=== PATIENT | female | born 1960 | race Caucasian/White ===

== ENCOUNTER 2022-11-09 11:10 | Emergency (ER) | payer OTHER, SELFPAY ==
[2022-11-09 11:23] VITALS: BP 154/65; PULSE 77; RESP 16; TEMP 37; O2SAT 96; BMI 42.0
--- NOTE | 2022-11-09 11:46 | PC.NURSE ---
pt states she has copd and smokes. Not concerned about breathing
--- NOTE | 2022-11-09 17:49 | ED.GENADUL1 ---
HPI - General Adult General Chief complaint: Skin/Abscess/Foreign Body Stated complaint: CYST Time Seen by Provider: 11/09/22 12:47 Source: patient Mode of arrival: walk-in Limitations: no limitations History of Present Illness HPI narrative: patient left without being seen secondary to her volume, wait time. I never saw this patient. Related Data Allergies Allergy/AdvReac Type Severity Reaction Status Date / Time ciprofloxacin [From Cipro] AdvReac Intermediate Vomiting Verified 11/09/22 11:26 metronidazole [From Flagyl] AdvReac Intermediate Vomiting Verified 11/09/22 11:26 Penicillins AdvReac Intermediate Vomiting Verified 11/09/22 11:26 sulfamethoxazole AdvReac Intermediate Vomiting Verified 11/09/22 11:26 [From Bactrim] trimethoprim [From Bactrim] AdvReac Intermediate Vomiting Verified 11/09/22 11:26 PFSH [facility] Medical History (Updated 11/09/22 @ 11:48 by Balbina Luis) Social History Smoking status: Current every day smoker Exam Constitutional Vital Signs - 24 hr 11/09/22 11:23 Temperature 98.6 F Pulse Rate [Monitor] 77 Respiratory Rate 16 Blood Pressure [Left Arm] 154/65 H Pulse Oximetry 96 Oxygen Delivery Method Room Air Course Vital Signs Vital signs: Vital Signs Temperature 98.6 F 11/09/22 11:23 Pulse Rate 77 11/09/22 11:23 Respiratory Rate 16 11/09/22 11:23 Blood Pressure 154/65 H 11/09/22 11:23 Pulse Oximetry 96 11/09/22 11:23 Oxygen Delivery Method Room Air 11/09/22 11:23 Temperature 98.6 F 11/09/22 11:23 Pulse Rate 77 11/09/22 11:23 Respiratory Rate 16 11/09/22 11:23 Blood Pressure 154/65 H 11/09/22 11:23 Pulse Oximetry 96 11/09/22 11:23 Oxygen Delivery Method Room Air 11/09/22 11:23 Discharge Plan Discharge Patient Disposition: Left Without Being Seen Discharge Date/Time: 11/09/22 13:16
== END 2022-11-09 13:16 | disposition left against medical advice (07) ==
LOC: ER 11:29
PROVIDERS: Emergency Provider Emergency Medicine; PCP Nurse Practitioner
DX: Z53.21 Procedure and treatment not carried out due to patient leaving prior to being seen by health care provider (principal)

== ENCOUNTER 2023-02-25 07:53 | Outpatient (OUT) | payer OTHER, SELFPAY ==
[2023-02-25 08:08] LABS: Basophils Absolute Auto 0.1 10^3/uL (0.0-0.1); Basophils Percent Auto 0.6 % (0.2-2.0); Eosinophils Absolute Auto 0.2 10^3/uL (0.0-0.7); Eosinophils Percent Auto 1.9 % (0.9-7.0); Hematocrit 53.5 % (36.0-48.0); Hemoglobin 17.4 g/dL (12.0-16.0); Immature Granulocytes Abs Auto 0.04 10^3/uL (0.00-0.03); Immature Granulocytes Pct Auto 0.4 % (0.0-0.5); Lymphocytes Absolute Auto 2.7 10^3/uL (1.2-3.8); Lymphocytes Percent Auto 27.7 % (20.5-60.0); Mean Corpuscular HGB Conc 32.5 g/dL (29.9-35.2); Mean Corpuscular Hemoglobin 31.1 pg (26.7-34.0); Mean Corpuscular Volume 95.5 fL (81.0-99.0); Mean Platelet Volume 9.8 fL (9.5-13.5); Monocytes Absolute Auto 0.6 10^3/uL (0.3-0.8); Monocytes Percent Auto 6.4 % (1.7-12.0); Neutrophils Absolute Auto 6.1 10^3/uL (1.4-6.5); Platelet Count 325 10^3/uL (150-450); White Blood Count 9.7 10^3/uL (4.0-11.0)
[2023-02-25 08:48] LABS: Estimated Average Glucose 200 mg/dL; Glycohemoglobin A1C 8.6 % (4.5-6.2)
[2023-02-25 08:49] LABS: Alanine Aminotransferase 18 U/L (14-59); Albumin Globulin Ratio 0.9; Albumin Level 3.5 g/dL (3.4-5.0); Alkaline Phosphatase 112 U/L (46-116); Anion Gap 12.6; Aspartate Amino Transferase 13 U/L (15-37); Bilirubin Total 0.4 mg/dL (0.2-1.0); Calcium 9.2 mg/dL (8.5-10.1); Carbon Dioxide 28.7 mmol/L (21.0-32.0); Chloride 101 mmol/L (98-107); Chol HDL Ratio 2.6; Cholesterol 105 mg/dL (<=200); Estimated GFR (African America >60 (>=60); Estimated GFR (Non-African Ame >60 (>=60); Globulin 4.1 g/dL; Glucose 305 mg/dL (74-106); HDL Cholesterol 41 mg/dL (40-60); LDL Cholesterol Calculated 47.8 mg/dL; Potassium 4.3 mmol/L (3.5-5.1); Sodium 138 mmol/L (136-145); Total Protein 7.6 g/dL (6.4-8.2); Triglycerides 81 mg/dL (<=150); VLDL CHOLESTEROL 16.2 mg/dL
== END 2023-02-25 07:54 | disposition home or self-care (01) ==
LOC: LAB 07:55
PROVIDERS: PCP Nurse Practitioner; Visit Provider Nurse Practitioner Acute Care
DX: I10 Essential (primary) hypertension (principal); E78.2 Mixed hyperlipidemia; E11.9 Type 2 diabetes mellitus without complications; Z79.4 Long term (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
CPT/HCPCS: 36415; 80053; 80061; 83036; 85025

== ENCOUNTER 2023-04-05 08:08 | Emergency (ER) | payer OTHER, SELFPAY ==
[2023-04-05 08:12] VITALS: BP 156/72; PULSE 72; RESP 18; TEMP 36.4; O2SAT 98; BMI 42.0
[2023-04-05 08:20] VITALS: O2SAT 98
--- NOTE | 2023-04-05 08:26 | XR_ITS ---
The [place] [id number] Patient Name: RODDY HORN MRN: [id number] date: 1960 Sex: F Assigned Patient Location: ER Current Patient Location: ED.MAIN Accession/Order Number: [id number] Exam Date: 04/05/2023 09:15 Report Date: 04/05/2023 11:10 At the request of: CHLOE WRIGHT Procedure: XR shoulder RT min 2V EXAM: Right shoulder HISTORY: Pain for 2 weeks, no known injury, with numbness and a burning sensation that radiates to the fingers. TECHNIQUE: 3 views of the right shoulder were obtained. FINDINGS: There is no evidence of fracture or dislocation. There are no suspicious bone lesions. There are minimal if any degenerative changes. Soft tissues are normal. XR/XR shoulder RT min 2V IMPRESSION: Unremarkable exam. If clinical concern remains, consider further imaging with MRI. Electronically authenticated by: KIRK MOORE Date: 04/05/2023 11:10
--- NOTE | 2023-04-05 08:27 | ECG_ITS ---
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
--- NOTE | 2023-04-05 08:27 | ED.GENADUL1 ---
HPI - General Adult General Chief complaint: Extremity Injury, Upper Stated complaint: UPPER EXTREMITY PAIN TO RIGHT ARM Time Seen by Provider: 04/05/23 08:19 Source: patient Mode of arrival: walk-in History of Present Illness HPI narrative: Coming to the ER with a right shoulder pain that has been going on at least for 2 weeks and mentioned that the pain is starting from her shoulder going down to her elbow there was no weakness numbness or tingling down her fingers and the patient mentioned that she is left-handed No history of trauma or fall no history of neck pain The patient denies any chest pain shortness of breath or any other complaints She also have limitation in the right shoulder with abduction Related Data Home Medications Medication Instructions Recorded Confirmed aspirin 81 mg tablet,delayed 81 mg PO DAILY 04/05/23 04/05/23 release budesonide-formoterol HFA 160 2 puff inhalation BID 04/05/23 04/05/23 mcg-4.5 mcg/actuation aerosol inhaler (Symbicort) calcium carbonate 500 mg-vitamin 1 tab PO BID 04/05/23 04/05/23 D3 10 mcg (400 unit) tablet carvedilol 12.5 mg tablet 12.5 mg PO BID 04/05/23 04/05/23 empagliflozin 25 mg tablet 25 mg PO DAILY 04/05/23 04/05/23 (Jardiance) furosemide 20 mg tablet 20 mg PO DAILY 04/05/23 04/05/23 gabapentin 600 mg tablet 600 mg PO TID 04/05/23 04/05/23 insulin aspart U-100 100 unit/mL 1 sliding scale dose subcut 04/05/23 04/05/23 (3 mL) subcutaneous pen (Novolog TIDWMEAL FlexPen U-100 Insulin aspart) insulin glargine 100 unit/mL (3 60 unit subcut QPM 04/05/23 04/05/23 mL) subcutaneous pen (Lantus Solostar U-100 Insulin) loratadine 10 mg tablet 10 mg PO DAILY 04/05/23 04/05/23 losartan 100 mg tablet 100 mg PO DAILY 04/05/23 04/05/23 pantoprazole 40 mg tablet,delayed 40 mg PO DAILY 04/05/23 04/05/23 release paroxetine HCl 10 mg tablet 10 mg PO DAILY 04/05/23 04/05/23 potassium chloride 10 mEq 10 meq PO DAILY 04/05/23 04/05/23 capsule,extended release rivaroxaban 20 mg tablet (Xarelto) 20 mg PO DAILY 04/05/23 04/05/23 rosuvastatin 5 mg tablet 5 mg PO DAILY 04/05/23 04/05/23 spironolactone 25 mg tablet 25 mg PO BID 04/05/23 04/05/23 tiotropium bromide 2.5 2 puff inhalation DAILY 04/05/23 04/05/23 mcg/actuation mist for inhalation (Spiriva Respimat) Previous Rx's Medication Instructions Recorded prednisone 20 mg tablet 40 mg PO DAILY 2 days #4 tabs 04/05/23 Allergies Allergy/AdvReac Type Severity Reaction Status Date / Time ciprofloxacin [From Cipro] AdvReac Intermediate Vomiting Verified 11/09/22 11:26 metronidazole [From Flagyl] AdvReac Intermediate Vomiting Verified 11/09/22 11:26 Penicillins AdvReac Intermediate Vomiting Verified 11/09/22 11:26 sulfamethoxazole AdvReac Intermediate Vomiting Verified 11/09/22 11:26 [From Bactrim] trimethoprim [From Bactrim] AdvReac Intermediate Vomiting Verified 11/09/22 11:26 Review of Systems ROS Status of ROS 10 or more systems reviewed and unremarkable except as noted in history and below [facility] Medical History (Updated 04/05/23 @ 11:08 by Anushka Carbajal MD) Chronic obstructive pulmonary disease ?J44.9 - Chronic obstructive pulmonary disease, unspecified (ICD-10) Social History Smoking status: Current every day smoker Exam Narrative Exam Narrative: Nurses notes and vital signs reviewed and patient is not hypoxic. General: Well-appearing and in no apparent distress. Skin: Warm, dry, no pallor noted. No rash. Head: Normocephalic, atraumatic. Neck: Supple, non-tender. Eye: Pupils are equal, round and EOMI. No scleral icterus. Ears, Nose, Mouth, and Throat: TM are clear, no nasal mucosal hypertrophy. Oral mucosa is moist, no posterior oropharynx erythema, uvula is mid-line Cardiovascular: Regular Rate and Rhythm without murmur, gallop or rub. Respiratory: No accessory muscle use or respiratory distress. Lungs are clear to auscultation, no wheezing, rales or rhonchi Chest Wall: no tenderness Back: No midline thoracic or lumbar vertebral tenderness. No CVA tenderness Musculoskeletal: normal ROM, no calf or popliteal tenderness, no lower extremity edema/swelling. Right shoulder limitation of abduction to 90 degrees due to pain, no redness or hotness detected GI: Abdomen is soft, non-distended. Normal bowel sounds. No masses appreciated. No tenderness to palpation. No rebound, guarding, or rigidity noted. Neurological: A&O x4. No cranial nerve dysfunction observed. No truncal ataxia. Moves all extremities. Sensation intact. Psychiatric: Cooperative and interactive. Normal mood and affect. Constitutional Vital Signs, click to edit/add: Last Vital Signs Temp 97.6 F 04/05/23 08:12 Pulse 60 04/05/23 09:43 Resp 16 04/05/23 09:43 BP 148/65 H 04/05/23 09:43 Pulse Ox 97 04/05/23 09:43 O2 Del Method Room Air 04/05/23 08:20 Course Vital Signs Vital signs: Vital Signs Temperature 97.6 F 04/05/23 08:12 Pulse Rate 72 04/05/23 08:12 Respiratory Rate 18 04/05/23 08:12 Blood Pressure 156/72 H 04/05/23 08:12 Pulse Oximetry 98 04/05/23 08:12 Oxygen Delivery Method Room Air 04/05/23 08:12 Temperature 97.6 F 04/05/23 08:12 Pulse Rate 60 04/05/23 09:43 Respiratory Rate 16 04/05/23 09:43 Blood Pressure 148/65 H 04/05/23 09:43 Pulse Oximetry 97 04/05/23 09:43 Oxygen Delivery Method Room Air 04/05/23 08:20 Medical Decision Making MDM Narrative Medical decision making narrative: Examination shows some limitation of movement of the right shoulder but there is no vascular injury and no other acute pathology detected The patient x-ray shows no acute significant pathology on the prelim reading mostly the patient presenting with possible arthritis discharged from the ER with 3 days of prednisone as well as referral to orthopedic as outpatient The patient is to follow up with primary care physician in next 2-3 days or to return to the emergency department should any of the signs or symptoms worsen or new symptoms develop. The patient agrees with the following Diagnosis and Treatment plan and the patient will be discharged home. Discharge Plan Discharge Chief Complaint: Extremity Injury, Upper Clinical Impression: Acute shoulder pain Patient Disposition: Home, Self-Care Time of Disposition Decision: 11:08 Condition: Good Mode of Transportation: Private Vehicle Prescriptions / Home Meds: New prednisone 20 mg tablet 40 mg PO DAILY 2 Days Qty: 4 0RF No Action aspirin 81 mg tablet,delayed release (DR/EC) 81 mg PO DAILY budesonide-formoterol [Symbicort] 160-4.5 mcg/actuation HFA aerosol inhaler 2 puff INHALATION BID calcium carbonate-vitamin D3 500 mg-10 mcg (400 unit) tablet 1 tab PO BID carvedilol 12.5 mg tablet 12.5 mg PO BID Jardiance 25 mg tablet 25 mg PO DAILY furosemide 20 mg tablet 20 mg PO DAILY gabapentin 600 mg tablet 600 mg PO TID insulin aspart U-100 [Novolog FlexPen U-100 Insulin] 100 unit/mL (3 mL) insulin pen 1 sliding scale dose SUBCUT TIDWMEAL insulin glargine [Lantus Solostar U-100 Insulin] 100 unit/mL (3 mL) insulin pen 60 unit SUBCUT QPM loratadine 10 mg tablet 10 mg PO DAILY losartan 100 mg tablet 100 mg PO DAILY pantoprazole 40 mg tablet,delayed release (DR/EC) 40 mg PO DAILY paroxetine HCl 10 mg tablet 10 mg PO DAILY potassium chloride 10 mEq capsule, extended release 10 meq PO DAILY Xarelto 20 mg tablet 20 mg PO DAILY rosuvastatin 5 mg tablet 5 mg PO DAILY spironolactone 25 mg tablet 25 mg PO BID Spiriva Respimat 2.5 mcg/actuation mist 2 puff INHALATION DAILY Instructions: Arthralgia (ED) Stand Alone Forms: Portal Instructions Referrals: Maira Rush NP [Primary Care Provider] - 1 week Patrick Stewart MD [Physician] - 1 week Discharge Date/Time: 04/05/23 11:16
[2023-04-05] MEDS: KETOROLAC TROMETHAMINE 30 MG/ML VIAL IM (08:52)
[2023-04-05 09:43] VITALS: BP 148/65; PULSE 60; RESP 16; O2SAT 97
== END 2023-04-05 11:16 | disposition home or self-care (01) ==
PROVIDERS: Emergency Provider Emergency Medicine; PCP Nurse Practitioner
DX: M25.511 Pain in right shoulder (principal); J44.9 Chronic obstructive pulmonary disease, unspecified; Z79.82 Long term (current) use of aspirin; Z79.4 Long term (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; Z79.899 Other long term (current) drug therapy; F17.210 Nicotine dependence, cigarettes, uncomplicated
CPT/HCPCS: 73030; 93005; 99284

== ENCOUNTER 2023-06-24 09:14 | Observation (INO) | payer OTHER, SELFPAY ==
[2023-06-24] VITALS (22 sets, daily range): BP systolic 116–167; BP diastolic 65–80; PULSE 66–90; RESP 12–28; TEMP 36.4–36.5; O2SAT 89–96; BMI 42.1; BMI 37.8
--- NOTE | 2023-06-24 09:27 | ED_ITS ---
HPI - SOB/Dyspnea General Chief Complaint: Shortness of Breath/Dyspnea Stated Complaint: SOB Time Seen by Provider: 06/24/23 09:17 Source: patient Mode of arrival: ambulance History of Present Illness HPI Narrative: 62-year-old female presents for shortness of breath. She has a history of chronic obstructive pulmonary disease and has a nebulizer at home but didn't have any medication for it. She was given aerosol treatment en route and she states she felt a little bit better. She hasn't had a fever or productive cough and doesn't complain to me of chest pain. Symptoms started within the last day. Related Data Home Medications Medication Instructions Recorded Confirmed aspirin 81 mg tablet,delayed 81 mg PO DAILY 04/05/23 06/24/23 release budesonide-formoterol HFA 160 2 puff inhalation BID 04/05/23 06/24/23 mcg-4.5 mcg/actuation aerosol inhaler (Symbicort) calcium carbonate 500 mg-vitamin 1 tab PO BID 04/05/23 06/24/23 D3 10 mcg (400 unit) tablet carvedilol 12.5 mg tablet 12.5 mg PO BID 04/05/23 06/24/23 empagliflozin 25 mg tablet 25 mg PO DAILY 04/05/23 06/24/23 (Jardiance) furosemide 20 mg tablet 20 mg PO DAILY 04/05/23 06/24/23 gabapentin 600 mg tablet 600 mg PO TID 04/05/23 06/24/23 insulin aspart U-100 100 unit/mL 1 sliding scale dose subcut 04/05/23 06/24/23 (3 mL) subcutaneous pen (Novolog TIDWMEAL FlexPen U-100 Insulin aspart) insulin glargine 100 unit/mL (3 60 unit subcut QPM 04/05/23 06/24/23 mL) subcutaneous pen (Lantus Solostar U-100 Insulin) loratadine 10 mg tablet 10 mg PO DAILY 04/05/23 06/24/23 losartan 100 mg tablet 100 mg PO DAILY 04/05/23 06/24/23 pantoprazole 40 mg tablet,delayed 40 mg PO DAILY 04/05/23 06/24/23 release paroxetine HCl 10 mg tablet 10 mg PO DAILY 04/05/23 06/24/23 potassium chloride 10 mEq 10 meq PO DAILY 04/05/23 06/24/23 capsule,extended release rivaroxaban 20 mg tablet (Xarelto) 20 mg PO DAILY 04/05/23 06/24/23 rosuvastatin 5 mg tablet 5 mg PO DAILY 04/05/23 06/24/23 spironolactone 25 mg tablet 25 mg PO BID 04/05/23 06/24/23 tiotropium bromide 2.5 2 puff inhalation DAILY 04/05/23 04/05/23 mcg/actuation mist for inhalation (Spiriva Respimat) Allergies Allergy/AdvReac Type Severity Reaction Status Date / Time ciprofloxacin [From Cipro] AdvReac Intermediate Vomiting Verified 06/24/23 09:23 metronidazole [From Flagyl] AdvReac Intermediate Vomiting Verified 06/24/23 09:23 Penicillins AdvReac Intermediate Vomiting Verified 06/24/23 09:23 sulfamethoxazole AdvReac Intermediate Vomiting Verified 11/09/22 11:26 [From Bactrim] trimethoprim [From Bactrim] AdvReac Intermediate Vomiting Verified 11/09/22 11:26 Review of Systems ROS Narrative A ten point review of systems is negative except as noted above. [facility] Medical History (Updated 06/24/23 @ 11:02 by Luis Antonio Garcia MD) Chronic obstructive pulmonary disease ?J44.9 - Chronic obstructive pulmonary disease, unspecified (ICD-10) Social History Smoking status: Current every day smoker Exam Narrative Exam Narrative: Nurses note and vital signs reviewed and patient is not hypoxic. General: The patient appears somewhat disheveled. Skin: Warm, dry, no pallor noted. There is no rash noted. Head: Normocephalic, atraumatic Eye: Normal conjunctiva, no drainage Ears, Nose, Mouth, and Throat: oral mucosa is moist. Nares patent. Cardiovascular: Regular Rate and Rhythm Respiratory: bilateral rhonchi throughout Back: non-tender GI: soft and nontender Musculoskeletal: The patient has no evidence of calf tenderness, no pitting e antelmo, symmetrical pulses noted bilaterally Neurological: A&O, normal speech Psychiatric: Cooperative Constitutional Vital Signs, click to edit/add: Last Vital Signs Temp 97.7 F 06/24/23 09:17 Pulse 74 06/24/23 10:20 Resp 25 H 06/24/23 10:20 BP 150/80 H 06/24/23 10:01 Pulse Ox 93 L 06/24/23 10:20 O2 Del Method Nasal Cannula 06/24/23 09:49 O2 Flow Rate 3 06/24/23 09:49 Course Vital Signs Vital signs: Vital Signs Temperature 97.7 F 06/24/23 09:17 Pulse Rate 79 06/24/23 09:17 Respiratory Rate 28 H 06/24/23 09:17 Blood Pressure 167/65 H 06/24/23 09:17 Pulse Oximetry 92 L 06/24/23 09:17 Oxygen Delivery Method Nasal Cannula 06/24/23 09:17 Oxygen Delivery Flow Rate 3 06/24/23 09:17 Temperature 97.7 F 06/24/23 09:17 Pulse Rate 74 06/24/23 10:20 Respiratory Rate 25 H 06/24/23 10:20 Blood Pressure 150/80 H 06/24/23 10:01 Pulse Oximetry 93 L 06/24/23 10:20 Oxygen Delivery Method Nasal Cannula 06/24/23 09:49 Oxygen Delivery Flow Rate 3 06/24/23 09:49 MDM - SOB/Dyspnea MDM Narrative Medical decision making narrative: the patient presents with chronic obstructive pulmonary disease exacerbation and she has a positive Covid test. No x-ray findings to suggest pneumonia or Covid. She was given aerosol treatments and IV Solu-Medrol and is being admitted. Treatment diagnosis and disposition were discussed with the patient. Differential Diagnosis Differential diagnosis: Likely acute exacerbation of chronic obstructive airways disease, congestive heart failure, community acquired pneumonia and other (Covid, influenza) Lab Data Attestation: I reviewed the patient's lab results. Labs: Lab Results 06/24/23 06/24/23 06/24/23 Range/Units 09:29 09:30 09:38 WBC 9.4 (4.0-11.0) 10^3/uL RBC 5.87 H (4.20-5.40) 10^6/uL Hgb 18.1 H (12.0-16.0) g/dL Hct 55.0 H (36.0-48.0) % MCV 93.7 (81.0-99.0) fL MCH 30.8 (26.7-34.0) pg MCHC 32.9 (29.9-35.2) g/dL RDW 12.8 (11.0-15.0) % Plt Count 269 (150-450) 10^3/uL MPV 10.3 (9.5-13.5) fL Neut % (Auto) 74.9 (43.0-75.0) % Lymph % (Auto) 17.7 L (20.5-60.0) % [place] % (Auto) 5.4 (1.7-12.0) % Eos % (Auto) 1.2 (0.9-7.0) % Baso % (Auto) 0.4 (0.2-2.0) % Neut # (Auto) 7.0 H (1.4-6.5) 10^3/uL Lymph # (Auto) 1.7 (1.2-3.8) 10^3/uL [place] # (Auto) 0.5 (0.3-0.8) 10^3/uL Eos # (Auto) 0.1 (0.0-0.7) 10^3/uL Baso # (Auto) 0.0 (0.0-0.1) 10^3/uL Abs Immat Gran (auto) 0.04 H (0.00-0.03) 10^3/uL Imm/Tot Granulo (auto) 0.4 (0.0-0.5) % Sodium 139 (136-145) mmol/L Potassium 3.8 (3.5-5.1) mmol/L Chloride 100 (98-107) mmol/L Carbon Dioxide 28.4 (21.0-32.0) mmol/L Anion Gap 14.4 BUN 7.0 (7.0-18.0) mg/dL Creatinine 0.91 (0.55-1.02) mg/dL Est GFR ( Amer) >60 (>=60) Est GFR (Non-Af Amer) >60 (>=60) BUN/Creatinine Ratio 7.7 Glucose 285 H (74-106) mg/dL Calcium 9.0 (8.5-10.1) mg/dL Influenza Type A Ag Negative Influenza Type B Ag Negative SARS-CoV-2 Ag (CV2AG) Positive A (NEGATIVE) POC Glucose 268 H (74-106) mg/dL Imaging Data Chest x-ray: Radiologist's impression: ITS Impressions Chest X-Ray 06/24/23 09:52 IMPRESSION: No acute heart or lung disease identified. Electronically authenticated by: CORINE COMBS Date: 06/24/2023 10:02 ECG Data Attestation: I personally reviewed and interpreted this ECG as follows: (EKG on my interpretation shows sinus rhythm without acute change) Critical Care Time Critical Care Time Critical Care Time: Yes Total Critical Care Time: 35 Attestation: Due to the high probability of sudden and clinically significant deterioration in the patient's condition he/she required the highest level of my preparedness to intervene urgently I provided critical care time including documentation time, medication orders and management, reevaluation, vital sign assessment, ordering and reviewing of lab tests, ordering and reviewing of x-ray studies, and admission orders. Aggregate critical care time is 35 minutes including only time during which I was engaged in work directly related to his/her care and did not include time spent treating other patients simultaneously. Discharge Plan Discharge Chief Complaint: Shortness of Breath/Dyspnea Clinical Impression: COVID, Acute exacerbation of chronic obstructive pulmonary disease Patient Disposition: Admitted as Observation Time of Disposition Decision: 11:02 Condition: Good Prescriptions / Home Meds: No Action aspirin 81 mg tablet,delayed release (DR/EC) 81 mg PO DAILY budesonide-formoterol [Symbicort] 160-4.5 mcg/actuation HFA aerosol inhaler 2 puff INHALATION BID calcium carbonate-vitamin D3 500 mg-10 mcg (400 unit) tablet 1 tab PO BID carvedilol 12.5 mg tablet 12.5 mg PO BID Jardiance 25 mg tablet 25 mg PO DAILY furosemide 20 mg tablet 20 mg PO DAILY Hold Instructions: x gabapentin 600 mg tablet 600 mg PO TID insulin aspart U-100 [Novolog FlexPen U-100 Insulin] 100 unit/mL (3 mL) insulin pen 1 sliding scale dose SUBCUT TIDWMEAL insulin glargine [Lantus Solostar U-100 Insulin] 100 unit/mL (3 mL) insulin pen 60 unit SUBCUT QPM loratadine 10 mg tablet 10 mg PO DAILY losartan 100 mg tablet 100 mg PO DAILY pantoprazole 40 mg tablet,delayed release (DR/EC) 40 mg PO DAILY paroxetine HCl 10 mg tablet 10 mg PO DAILY potassium chloride 10 mEq capsule, extended release 10 meq PO DAILY Xarelto 20 mg tablet 20 mg PO DAILY rosuvastatin 5 mg tablet 5 mg PO DAILY spironolactone 25 mg tablet 25 mg PO BID Spiriva Respimat 2.5 mcg/actuation mist 2 puff INHALATION DAILY Referrals: Maira Rush FIRE ENGINEER [Primary Care Provider] - 1 week
--- NOTE | 2023-06-24 09:27 | ECG_ITS ---
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
[2023-06-24 09:30] LABS: Glucometer 268 mg/dL (74-106)
[2023-06-24] MEDS: METHYLPREDNISOLONE SOD SUCC PF 125 MG/2 ML VIAL IVP (09:39)
[2023-06-24 09:47] LABS: Basophils Percent Auto 0.4 % (0.2-2.0); Eosinophils Absolute Auto 0.1 10^3/uL (0.0-0.7); Eosinophils Percent Auto 1.2 % (0.9-7.0); Hemoglobin 18.1 g/dL (12.0-16.0); Immature Granulocytes Abs Auto 0.04 10^3/uL (0.00-0.03); Immature Granulocytes Pct Auto 0.4 % (0.0-0.5); Lymphocytes Absolute Auto 1.7 10^3/uL (1.2-3.8); Lymphocytes Percent Auto 17.7 % (20.5-60.0); Mean Corpuscular HGB Conc 32.9 g/dL (29.9-35.2); Mean Corpuscular Hemoglobin 30.8 pg (26.7-34.0); Mean Corpuscular Volume 93.7 fL (81.0-99.0); Mean Platelet Volume 10.3 fL (9.5-13.5); Monocytes Absolute Auto 0.5 10^3/uL (0.3-0.8); Monocytes Percent Auto 5.4 % (1.7-12.0); Neutrophils Percent Auto 74.9 % (43.0-75.0); Platelet Count 269 10^3/uL (150-450); Red Blood Count 5.87 10^6/uL (4.20-5.40); Red Cell Distribution Width 12.8 % (11.0-15.0); White Blood Count 9.4 10^3/uL (4.0-11.0)
[2023-06-24] MEDS: ALBUTEROL SULFATE 2.5 MG/3 ML VIAL NEB IH (09:48)
--- NOTE | 2023-06-24 09:52 | XR_ITS ---
The [address] [address] Patient Name: RODDY HORN MRN: [id number] date: 1960 Sex: F Assigned Patient Location: ER Current Patient Location: ER Accession/Order Number: [id number] Exam Date: 06/24/2023 09:45 Report Date: 06/24/2023 10:02 At the request of: SACHA MONTANO Procedure: XR chest 1V EXAM: Chest x-ray HISTORY: . SOB . COMPARISON: None TECHNIQUE: Single view of the chest FINDINGS: Heart and vascularity are unremarkable. Lungs are free of focal infiltrates. EKG leads overlie the chest. XR/XR chest 1V IMPRESSION: No acute heart or lung disease identified. Electronically authenticated by: CORINE COMBS Date: 06/24/2023 10:02
[2023-06-24 09:56] LABS: Anion Gap 14.4; BUN Creatinine Ratio 7.7; Carbon Dioxide 28.4 mmol/L (21.0-32.0); Chloride 100 mmol/L (98-107); Estimated GFR (African America >60 (>=60); Estimated GFR (Non-African Ame >60 (>=60); Glucose 285 mg/dL (74-106); Potassium 3.8 mmol/L (3.5-5.1); Sodium 139 mmol/L (136-145)
[2023-06-24 10:00] LABS: Influenza Virus A Antigen Negative; Influenza Virus B Antigen Negative; Internal Control Within Normal Limits
[2023-06-24 10:01] LABS: SARS-CoV-2 Ag POSITIVE (NEGATIVE)
--- OUTSIDE RECORDS SUMMARY | 2023-06-24 12:08 | XMS_ITS | CCD ---
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 Report Left Ventricle LVEDD (3.7 - 5.6 cm): 3.98 cm LVESD (2.2 - 4.0 cm): 2.63 cm LVIVS thickness (0.6 - 1.2 cm): 1.22 cm LVPW thickness (0.5 - 1.0 cm): 1.33 cm e': 0.08 m/s E - e': 10.89 LVOT Max Gradient: 4.80 mm[Hg] Peak Velocity (LVOT): 1.10 m/s LVOT Diameter 1.97 cm Left Ventricular Ejection Fraction: 65 % Left Atrium LA Volume Index (2D A2C): 59.06 ml, 59.06 ml Left Atrium Systolic Dimension: 2.99 cm Mitral Valve MV E to A Ratio: 1.06 Mitral Valve A-Wave Peak Velocity: 0.86 m/s Mitral Valve E-Wave Peak Velocity: 0.91 m/s Right Ventricle RV Internal Diastolic Dimension: 3.71 cm Aorta AO Root Diam: 2.44 cm Ascending Ao Diam: 2.14 cm Aortic Valve AoV Area (Peak Matty): 2.35 cm2, 2.35 cm2 Peak Velocity(Antegrade Flow): 1.43 m/s Peak Gradient(Antegrade Flow): 8.16 mm[Hg] Tricuspid Valve Peak Velocity (Regurgitant Flow): 2.65 m/s, 3.13 m/s Peak Velocity: 0.75 m/s Pulmonic Valve Peak Velocity: 1.18 m/s, 1.08 m/s Peak Gradient: 5.59 mm[Hg], 4.70 mm[Hg] Right Atrium Right Atrium Systolic Pressure: 41.17 ml, 41.17 ml Dictated by: Parth Subramanian M.D. on 04/10/2022 at 15:41 Approved by: Parth Subramanian M.D. on 04/10/2022 at 15:44 Normal [facility] POINT OF CARE GLUCOSEon 11-0 Glucose [Mass/Vol] 171 mg/dL Critically high 74-106 [facility] Comment on above: Performed By: #### P OCGLUC #### [facility] [address] [place] [address] Dr. Maru Disla Glucose [Mass/Vol] 97 mg/dL Normal 74-106 [facility] Comment on above: Performed By: #### M ALBR #### [facility] [address] [address] [address] Maru Disla PROF CHEM 8 (BAS METB)on Anion gap [Moles/Vol] 9.1 mmol/L Normal [facility] Comment on above: Performed By: #### P OCGLUC #### [facility] [address] [address] [address] Maru Disla Calcium [Mass/Vol] 8.7 mg/dL Normal 8.5-10.1 [facility] [place] Comment on above: Performed By: #### P OCGLUC #### [facility] [address] [place] [address] Dr. Maru Disla Chloride [Moles/Vol] 104 mmol/L Normal 98-107 [facility] Comment on above: Performed By: #### P OCGLUC #### [facility] [address] [address] [address] Maru Disla CO2 [Moles/Vol] 33.2 mmol/L Critically high 21.0-32.0 [facility] Comment on above: Performed By: #### P OCGLUC #### [facility] [address] [place] [address] Dr. Maru Disla Creatinine [Mass/Vol] 0.87 mg/dL Normal 0.55-1.02 [facility] Comment on above: Performed By: #### P OCGLUC #### [facility] [address] [place] [address] Dr. Maru Disla EGFR-AF TAJIK >60 Normal >=60 [facility] Comment on above: Performed By: #### P OCGLUC #### [facility] [address] [place] [address] Dr. Maru Disla EGFR-NON AF TAJIK >60 Normal >=60 [facility] Comment on above: Performed By: #### P OCGLUC #### [facility] [address] [address] [address] Maru Disla Glucose [Mass/Vol] 115 mg/dL Critically high 74-106 [facility] Comment on above: Performed By: #### P OCGLUC #### [facility] [address] [place] [address] Dr. Maru Disla Potassium [Moles/Vol] 4.3 mmol/L Normal 3.5-5.1 [facility] Comment on above: Performed By: #### P OCGLUC #### [facility] [address] [place] [address] Dr. Maru Disla Sodium [Moles/Vol] 142 mmol/L Normal 136-145 [facility] [place] Comment on above: Performed By: #### P OCGLUC #### [facility] [address] [place] [address] Dr. Maru Disla Urea nitrogen [Mass/Vol] 36.0 mg/dL Critically high 7.0-18.0 [facility] Comment on above: Performed By: #### P OCGLUC #### [facility] [address] [place] [address] Dr. Maru Disla Urea nitrogen/Creatinine [Mass ratio] 41.4 mg/mg Normal [facility] Comment on above: Performed By: #### P OCGLUC #### [facility] [address] [place] [address] Dr. Maru Disla CARDIAC BREANNE 3-6on 2 CK [Catalytic activity/Vol] 381 U/L Critically high 26-192 [facility] Comment on above: Performed By: #### C MREP #### [facility] [address] [place] [address] Dr. Maru Disla CK.MB [Mass/Vol] 7.91 ng/mL Critically high <=3.60 [facility] Comment on above: Performed By: #### C MREP #### [facility] [address] [place] [address] Dr. Maru Disla HSTROP 766.1 pg/mL Critically high 4.0-51.3 [facility] Comment on above: Result Comment: CUT- OFF POINTS HAVE BEEN ESTABLISHED BASED ON THE FOURTH UNIVERSAL DEFINITIONS OF MYOCARDIAL INFARCTION. THE UPPER REFERENCE LIMIT (URL) OF TROPONIN, DEFINED THE 99TH PERCENTILE OF cTnI DISTRIBUTION IN A REFERENCE POPULATION, HAS BEEN CONFIRMED THE DECISION THRESHOLD FOR VT DIAGNOSIS. Performed By: #### C MREP #### [facility] [address] [address] [address] Maru Disla CK [Catalytic activity/Vol] 356 U/L Critically high 26-192 [facility] Comment on above: Performed By: #### C MREP #### [facility] [address] [address] [address] Maru Disla CK.MB [Mass/Vol] 8.66 ng/mL Critically high <=3.60 [facility] Comment on above: Performed By: #### C MREP #### [facility] [address] [place] [address] Dr. Maru Disla HSTROP 610.6 pg/mL Critically high 4.0-51.3 [facility] Comment on above: Result Comment: CUT- OFF POINTS HAVE BEEN ESTABLISHED BASED ON THE FOURTH UNIVERSAL DEFINITIONS OF MYOCARDIAL INFARCTION. THE UPPER REFERENCE LIMIT (URL) OF TROPONIN, DEFINED THE 99TH PERCENTILE OF cTnI DISTRIBUTION IN A REFERENCE POPULATION, HAS BEEN CONFIRMED THE DECISION THRESHOLD FOR VT DIAGNOSIS. Performed By: #### C MREP #### [facility] [address] [place] [address] Dr. Maru Disla CARDIAC BREANNE ADMITon 022 CK [Catalytic activity/Vol] 381 U/L Critically high 26-192 [facility] Comment on above: Performed By: #### C MADM #### [facility] [address] [place] [address] Dr. Maru Disla CK.MB [Mass/Vol] 8.07 ng/mL Critically high <=3.60 [facility] Comment on above: Performed By: #### C MADM #### [facility] [address] [place] [address] Dr. Maru Disla HSTROP 220.2 pg/mL Critically high 4.0-51.3 [facility] Comment on above: Result Comment: CUT- OFF POINTS HAVE BEEN ESTABLISHED BASED ON THE FOURTH UNIVERSAL DEFINITIONS OF MYOCARDIAL INFARCTION. THE UPPER REFERENCE LIMIT (URL) OF TROPONIN, DEFINED THE 99TH PERCENTILE OF cTnI DISTRIBUTION IN A REFERENCE POPULATION, HAS BEEN CONFIRMED THE DECISION THRESHOLD FOR VT DIAGNOSIS. Performed By: #### C MADM #### [facility] [address] [place] [address] Dr. Maru Disla REDD 269 ng/mL Critically high 9-82 [facility] Comment on above: Performed By: #### C MADM #### [facility] [address] [place] [address] Dr. Maru Disla CBC AUTO DIFFon 04-08-2022 BASO # 0.0 103/ul Normal 0.0-0.1 [facility] Comment on above: Performed By: #### M ALBR #### [facility] [address] [place] [address] Dr. Maru Disla Basophils/100 WBC (Bld) 0.2 % Normal 0.2-2.0 [facility] Comment on above: Performed By: #### M ALBR #### [facility] [address] [place] [address] Dr. Maru Disla EO # 0.0 103/ul Normal 0.0-0.7 [facility] Comment on above: Performed By: #### M ALBR #### [facility] [address] [place] [address] Dr. Maru Disla Eosinophils/100 WBC (Bld) 0.0 % Critically low 0.9-7.0 [facility] Comment on above: Performed By: #### M ALBR #### [facility] [address] [place] [address] Dr. Maru Disla Erythrocyte distribution width (RBC) [Ratio] 13.4 % Normal 11.0-15.0 [facility] Comment on above: Performed By: #### M ALBR #### [facility] [address] [place] [address] Dr. Maru Disla Hematocrit (Bld) [Volume fraction] 52.7 % Critically high 36.0-48.0 [facility] Comment on above: Performed By: #### M ALBR #### [facility] [address] [place] [address] Dr. Maru Disla Hemoglobin (Bld) [Mass/Vol] 16.8 g/dL Critically high 12.0-16.0 [facility] Comment on above: Performed By: #### M ALBR #### [facility] [address] [place] [address] Dr. Mrau Disla IG # 0.13 10e3/ul Critically high 0.00-0.03 [facility] Comment on above: Performed By: #### M ALBR #### [facility] [address] [place] [address] Dr. Maru Disla IG % 0.6 % Critically high 0.0-0.5 [facility] Comment on above: Performed By: #### M ALBR #### [facility] [address] [place] [address] Dr. Maru Disla LYMPH # 0.8 103/ul Critically low 1.2-3.8 [facility] Comment on above: Performed By: #### M ALBR #### [facility] [address] [place] [address] Dr. Maru Disla Lymphocytes/100 WBC (Bld) 3.4 % Critically low 20.5-60.0 [facility] Comment on above: Performed By: #### M ALBR #### [facility] [address] [place] [address] Dr. Maru Disla MANUAL DIFF REQ NO Normal [facility] Comment on above: Performed By: #### M ALBR #### [facility] [address] [place] [address] Dr. Maru Disla MCH (RBC) [Entitic mass] 29.4 pg Normal 26.7-34.0 [facility] Comment on above: Performed By: #### M ALBR #### [facility] [address] [place] [address] Dr. Maru Disla MCHC (RBC) [Mass/Vol] 31.9 g/dL Normal 29.9-35.2 [facility] Comment on above: Performed By: #### M ALBR #### [facility] [address] [place] [address] Dr. Maru Disla MCV (RBC) [Entitic vol] 92.1 fL Normal 81.0-99.0 [facility] Comment on above: Performed By: #### M ALBR #### [facility] [address] [place] [address] Dr. Maru Disla MONO # 0.8 103/ul Normal 0.3-0.8 [facility] Comment on above: Performed By: #### M ALBR #### [facility] [address] [place] [address] Dr. Maru Disla Monocytes/100 WBC (Bld) 3.4 % Normal 1.7-12.0 [facility] Comment on above: Performed By: #### M ALBR #### [facility] [address] [place] [address] Dr. Maru Disla NEUT # 21.8 103/ul Critically high 1.4-6.5 [facility] Comment on above: Performed By: #### M ALBR #### [facility] [address] [place] [address] Dr. Maru Disla Neutrophils/100 WBC (Bld) 92.4 % Critically high 43.0-75.0 [facility] Comment on above: Performed By: #### M ALBR #### [facility] [address] [place] [address] Dr. Maru Disla Platelet mean volume (Bld) [Entitic vol] 10.4 fL Normal 9.5-13.5 [facility] Comment on above: Performed By: #### M ALBR #### [facility] [address] [place] [address] Dr. Maru Disla PLT 335 103/ul Normal 150-450 [facility] Comment on above: Performed By: #### M ALBR #### [facility] [address] [place] [address] Dr. Maru Disla RBC 5.72 106/ul Critically high 4.20-5.40 [facility] Comment on above: Performed By: #### M ALBR #### [facility] [address] [place] [address] Dr. Maru Disla WBC 23.5 103/ul Critically high 4.0-11.0 [facility] Comment on above: Performed By: #### M ALBR #### [facility] [address] [address] [address] Maru Disla POINT OF CARE GLUCOSEon 11-0 Glucose [Mass/Vol] 275 mg/dL Critically high 74-106 [facility] Comment on above: Performed By: #### P OCGLUC #### [facility] [address] [address] [address] Maru Disla Glucose [Mass/Vol] 161 mg/dL Critically high -106 [facility] Comment on above: Performed By: #### B MP #### [facility] [address] [place] [address] Dr. Maru Disla Glucose [Mass/Vol] 140 mg/dL Critically high -106 [facility] Comment on above: Performed By: #### P OCGLUC #### [facility] [address] [place] [address] Dr. Maru Disla Glucose [Mass/Vol] 219 mg/dL Critically high -106 [facility] Comment on above: Performed By: #### P OCGLUC #### [facility] [address] [place] [address] Dr. Maru Disla PROF CHEM 8 (BAS METB)on Anion gap [Moles/Vol] 14.0 mmol/L Normal [facility] Comment on above: Performed By: #### M ALBR #### [facility] [address] [place] [address] Dr. Maru Disla Calcium [Mass/Vol] 9.3 mg/dL Normal 8.5-10.1 [facility] [place] Comment on above: Performed By: #### M ALBR #### [facility] [address] [place] [address] Dr. Maru Disla Chloride [Moles/Vol] 98 mmol/L Normal 98-107 [facility] Comment on above: Performed By: #### M ALBR #### [facility] [address] [place] [address] Dr. Maru Disla CO2 [Moles/Vol] 30.5 mmol/L Normal 21.0-32.0 [facility] Comment on above: Performed By: #### M ALBR #### [facility] [address] [address] [address] Maru Disla Creatinine [Mass/Vol] 1.09 mg/dL Critically high 0.55-1.02 [facility] Comment on above: Performed By: #### M ALBR #### [facility] [address] [address] [address] Maru Disla EGFR-AF TAJIK >60 Normal >=60 [facility] Comment on above: Performed By: #### M ALBR #### [facility] [address] [address] [address] Maru Disla EGFR-NON AF TAJIK 51 mL/min/1.73m2 Critically low >=60 [facility] Comment on above: Performed By: #### M ALBR #### [facility] [address] [address] [address] Maru Disla Glucose [Mass/Vol] 242 mg/dL Critically high 74-106 [facility] Comment on above: Performed By: #### M ALBR #### [facility] [address] [place] [address] Dr. Maru Disla Potassium [Moles/Vol] 3.5 mmol/L Normal 3.5-5.1 [facility] Comment on above: Performed By: #### M ALBR #### [facility] [address] [address] [address] Maru Disla Sodium [Moles/Vol] 139 mmol/L Normal 136-145 [facility] [place] Comment on above: Performed By: #### M ALBR #### [facility] [address] [address] [address] Maru Disla Urea nitrogen [Mass/Vol] 32.0 mg/dL Critically high 7.0-18.0 [facility] Comment on above: Performed By: #### M ALBR #### [facility] [address] [place] [address] Dr. Maru Disla Urea nitrogen/Creatinine [Mass ratio] 29.4 mg/mg Normal [facility] Comment on above: Performed By: #### M ALBR #### [facility] [address] [place] [address] Dr. Maru Disla CBC AUTO DIFFon 04-07-2022 BASO # 0.0 103/ul Normal 0.0-0.1 [facility] Comment on above: Performed By: #### P OCGLUC #### [facility] [address] [place] [address] Dr. Maru Disla Basophils/100 WBC (Bld) 0.2 % Normal 0.2-2.0 [facility] Comment on above: Performed By: #### P OCGLUC #### [facility] [address] [place] [address] Dr. Maru Disla EO # 0.0 103/ul Normal 0.0-0.7 [facility] Comment on above: Performed By: #### P OCGLUC #### [facility] [address] [place] [address] Dr. Maru Disla Eosinophils/100 WBC (Bld) 0.0 % Critically low 0.9-7.0 [facility] Comment on above: Performed By: #### P OCGLUC #### [facility] [address] [place] [address] Dr. Maru Disla Erythrocyte distribution width (RBC) [Ratio] 13.6 % Normal 11.0-15.0 [facility] Comment on above: Performed By: #### P OCGLUC #### [facility] [address] [place] [address] Dr. Maru Disla Hematocrit (Bld) [Volume fraction] 48.1 % Critically high 36.0-48.0 [facility] Comment on above: Performed By: #### P OCGLUC #### [facility] [address] [place] [address] Dr. Maru Disla Hemoglobin (Bld) [Mass/Vol] 14.7 g/dL Normal 12.0-16.0 [facility] Comment on above: Performed By: #### P OCGLUC #### [facility] [address] [address] [address] Maru Disla IG # 0.16 10e3/ul Critically high 0.00-0.03 [facility] Comment on above: Performed By: #### P OCGLUC #### [facility] [address] [address] [address] Maru Disla IG % 0.6 % Critically high 0.0-0.5 [facility] Comment on above: Performed By: #### P OCGLUC #### [facility] [address] [address] [address] Maru Disla LYMPH # 1.0 103/ul Critically low 1.2-3.8 [facility] Comment on above: Performed By: #### P OCGLUC #### [facility] [address] [address] [address] Maru Disla Lymphocytes/100 WBC (Bld) 4.1 % Critically low 20.5-60.0 [facility] Comment on above: Performed By: #### P OCGLUC #### [facility] [address] [address] [address] Maru Disla MANUAL DIFF REQ NO Normal The [facility] Comment on above: Performed By: #### P OCGLUC #### [facility] [address] [address] [address] Maru Disla MCH (RBC) [Entitic mass] 29.4 pg Normal 26.7-34.0 [facility] Comment on above: Performed By: #### P OCGLUC #### [facility] [address] [address] [address] Maru Disla MCHC (RBC) [Mass/Vol] 30.6 g/dL Normal 29.9-35.2 [facility] Comment on above: Performed By: #### P OCGLUC #### [facility] [address] [address] [address] Maru Disla MCV (RBC) [Entitic vol] 96.2 fL Normal 81.0-99.0 [facility] Comment on above: Performed By: #### P OCGLUC #### [facility] [address] [address] [address] Maru Disla MONO # 0.8 103/ul Normal 0.3-0.8 [facility] Comment on above: Performed By: #### P OCGLUC #### [facility] [address] [address] [address] Maru Disla Monocytes/100 WBC (Bld) 3.2 % Normal 1.7-12.0 [facility] Comment on above: Performed By: #### P OCGLUC #### [facility] [address] [place] [address] Dr. Maru Disla NEUT # 23.1 103/ul Critically high 1.4-6.5 [facility] Comment on above: Performed By: #### P OCGLUC #### [facility] [address] [place] [address] Dr. Maru Disla Neutrophils/100 WBC (Bld) 91.9 % Critically high 43.0-75.0 [facility] Comment on above: Performed By: #### P OCGLUC #### [facility] [address] [place] [address] Dr. Maru Disla Platelet mean volume (Bld) [Entitic vol] 10.5 fL Normal 9.5-13.5 [facility] Comment on above: Performed By: #### P OCGLUC #### [facility] [address] [place] [address] Dr. Maru Disla PLT 300 103/ul Normal 150-450 [facility] Comment on above: Performed By: #### P OCGLUC #### [facility] [address] [place] [address] Dr. Maru Disla RBC 5.00 106/ul Normal 4.20-5.40 [facility] Comment on above: Performed By: #### P OCGLUC #### [facility] [address] [place] [address] Dr. Maru Disla WBC 25.1 103/ul Critically high 4.0-11.0 [facility] Comment on above: Performed By: #### P OCGLUC #### [facility] [address] [address] [address] Maru Disla POINT OF CARE GLUCOSEon Glucose [Mass/Vol] 247 mg/dL Critically high [facility]106 [facility] Comment on above: Performed By: #### B MP #### [facility] [address] [address] [address] Maru Disla Glucose [Mass/Vol] 182 mg/dL Critically high -106 [facility] Comment on above: Performed By: #### A BG #### [facility] [address] [address] [address] Maru Disla Glucose [Mass/Vol] 177 mg/dL Critically high [address] [place] [address] Comment on above: Performed By: #### P OCGLUC #### [facility] [address] [place] [address] Dr. Maur Disla Glucose [Mass/Vol] 191 mg/dL Critically high -106 [facility] Comment on above: Performed By: #### P OCGLUC #### [facility] [address] [place] [address] Dr. Maru Disla PROF CHEM 8 (BAS METB)on Anion gap [Moles/Vol] 11.4 mmol/L Normal [facility] Comment on above: Performed By: #### M ALBR #### [facility] [address] [place] [address] Dr. Maru Disla Calcium [Mass/Vol] 8.9 mg/dL Normal 8.5-10.1 [facility] Comment on above: Performed By: #### M ALBR #### [facility] [address] [place] [address] Dr. Maru Disla Chloride [Moles/Vol] 108 mmol/L Critically high 98-107 [facility] Comment on above: Performed By: #### M ALBR #### [facility] [address] [place] [address] Dr. Maru Disla CO2 [Moles/Vol] 27.9 mmol/L Normal 21.0-32.0 [facility] Comment on above: Performed By: #### M ALBR #### [facility] [address] [address] [address] Maru Disla Creatinine [Mass/Vol] 0.84 mg/dL Normal 0.55-1.02 [facility] Comment on above: Performed By: #### M ALBR #### [facility] [address] [address] [address] Maru Disla EGFR-AF TAJIK >60 Normal >=60 [facility] Comment on above: Performed By: #### M ALBR #### [facility] [address] [address] [address] Maru Disla EGFR-NON AF TAJIK >60 Normal >=60 [facility] Comment on above: Performed By: #### M ALBR #### [facility] [address] [place] [address] Dr. Maru Disla Glucose [Mass/Vol] 202 mg/dL Critically high 74-106 [facility] Comment on above: Performed By: #### M ALBR #### [facility] [address] [address] [address] Maru Disla Potassium [Moles/Vol] 4.3 mmol/L Normal 3.5-5.1 [facility] Comment on above: Performed By: #### M ALBR #### [facility] [address] [place] [address] Dr. Maru Disla Sodium [Moles/Vol] 143 mmol/L Normal 136-145 [facility] Comment on above: Performed By: #### M ALBR #### [facility] [address] [address] [address] Maru Disla Urea nitrogen [Mass/Vol] 26.0 mg/dL Critically high 7.0-18.0 [facility] Comment on above: Performed By: #### M ALBR #### [facility] [address] [address] [address] Maru Disla Urea nitrogen/Creatinine [Mass ratio] 31.0 mg/mg Normal [facility] Comment on above: Performed By: #### M ALBR #### [facility] [address] [address] [address] Maru Disla CBC AUTO DIFFon 04-06-2022 BASO # 0.0 103/ul Normal 0.0-0.1 [facility] Comment on above: Performed By: #### B MP #### [facility] [address] [address] [address] Maru Disla Basophils/100 WBC (Bld) 0.1 % Critically low 0.2-2.0 [facility] Comment on above: Performed By: #### B MP #### [facility] [address] [address] [address] Maru Disla EO # 0.0 103/ul Normal 0.0-0.7 [facility] Comment on above: Performed By: #### B MP #### [facility] [address] [address] [address] Maru Disla Eosinophils/100 WBC (Bld) 0.1 % Critically low 0.9-7.0 [facility] Comment on above: Performed By: #### B MP #### [facility] [address] [address] [address] Maru Disla Erythrocyte distribution width (RBC) [Ratio] 13.4 % Normal 11.0-15.0 [facility] Comment on above: Performed By: #### B MP #### [facility] [address] [place] [address] Dr. Maru Disla Hematocrit (Bld) [Volume fraction] 48.5 % Critically high 36.0-48.0 [facility] Comment on above: Performed By: #### B MP #### [facility] [address] [place] [address] Dr. Maru Disla Hemoglobin (Bld) [Mass/Vol] 15.5 g/dL Normal 12.0-16.0 [facility] Comment on above: Performed By: #### B MP #### [facility] [address] [address] [address] Maru Disla IG # 0.09 10e3/ul Critically high 0.00-0.03 [facility] Comment on above: Performed By: #### B MP #### [facility] [address] [address] [address] Maru Disla IG % 0.5 % Normal 0.0-0.5 [facility] Comment on above: Performed By: #### B MP #### [facility] [address] [place] [address] Dr. Maru Disla LYMPH # 0.9 103/ul Critically low 1.2-3.8 [facility] Comment on above: Performed By: #### B MP #### [facility] [address] [place] [address] Dr. Maru Disla Lymphocytes/100 WBC (Bld) 4.5 % Critically low 20.5-60.0 [facility] Comment on above: Performed By: #### B MP #### [facility] [address] [place] [address] Dr. Maru Disla MANUAL DIFF REQ NO Normal [facility] Comment on above: Performed By: #### B MP #### [facility] [address] [place] [address] Dr. Maru Disla MCH (RBC) [Entitic mass] 30.0 pg Normal 26.7-34.0 [facility] Comment on above: Performed By: #### B MP #### [facility] [address] [place] [address] Dr. Maru Disla MCHC (RBC) [Mass/Vol] 32.0 g/dL Normal 29.9-35.2 [facility] Comment on above: Performed By: #### B MP #### [facility] [address] [place] [address] Dr. Maru Disla MCV (RBC) [Entitic vol] 93.8 fL Normal 81.0-99.0 [facility] Comment on above: Performed By: #### B MP #### [facility] [address] [place] [address] Dr. Maru Disla MONO # 0.7 103/ul Normal 0.3-0.8 [facility] Comment on above: Performed By: #### B MP #### [facility] [address] [place] [address] Dr. Maru Disla Monocytes/100 WBC (Bld) 3.5 % Normal 1.7-12.0 [facility] Comment on above: Performed By: #### B MP #### [facility] [address] [place] [address] Dr. Maru Disla NEUT # 18.2 103/ul Critically high 1.4-6.5 [facility] Comment on above: Performed By: #### B MP #### [facility] [address] [place] [address] Dr. Maru Disla Neutrophils/100 WBC (Bld) 91.3 % Critically high 43.0-75.0 [facility] Comment on above: Performed By: #### B MP #### [facility] [address] [place] [address] Dr. Maru Disla Platelet mean volume (Bld) [Entitic vol] 11.2 fL Normal 9.5-13.5 [facility] Comment on above: Performed By: #### B MP #### [facility] [address] [place] [address] Dr. Maru Disla PLT 232 103/ul Normal 150-450 [facility] Comment on above: Performed By: #### B MP #### [facility] [address] [place] [address] Dr. Maru Disla RBC 5.17 106/ul Normal 4.20-5.40 [facility] Comment on above: Performed By: #### B MP #### [facility] [address] [place] [address] Dr. Maru Disla WBC 19.9 103/ul Critically high 4.0-11.0 [facility] Comment on above: Performed By: #### B MP #### [facility] [address] [place] [address] Dr. Maru Disla POINT OF CARE GLUCOSEon Glucose [Mass/Vol] 199 mg/dL Critically high 74-106 [facility] Comment on above: Performed By: #### P OCGLUC #### [facility] [address] [place] [address] Dr. Maru Disla Glucose [Mass/Vol] 109 mg/dL Critically high -106 [facility] Comment on above: Performed By: #### A BG #### [facility] [address] [place] [address] Dr. Maru Disla Glucose [Mass/Vol] 253 mg/dL Critically high -106 [facility] Comment on above: Performed By: #### P OCGLUC #### [facility] [address] [place] [address] Dr. Maru Disla Glucose [Mass/Vol] 194 mg/dL Critically high -106 [facility] Comment on above: Performed By: #### B MP #### [facility] [address] [place] [address] Dr. Maru Disla PROF CHEM 8 (BAS METB)on Anion gap [Moles/Vol] 11.2 mmol/L Normal [facility] Comment on above: Performed By: #### B MP #### [facility] [address] [place] [address] Dr. Maru Disla Calcium [Mass/Vol] 8.8 mg/dL Normal 8.5-10.1 [facility] Comment on above: Performed By: #### B MP #### [facility] [address] [place] [address] Dr. Maru Disla Chloride [Moles/Vol] 105 mmol/L Normal 98-107 [facility] Comment on above: Performed By: #### B MP #### [facility] [address] [place] [address] Dr. Maru Disla CO2 [Moles/Vol] 26.8 mmol/L Normal 21.0-32.0 [facility] Comment on above: Performed By: #### B MP #### [facility] [address] [place] [address] Dr. Maru Disla Creatinine [Mass/Vol] 0.66 mg/dL Normal 0.55-1.02 [facility] Comment on above: Performed By: #### B MP #### [facility] [address] [place] [address] Dr. Maru Disla EGFR-AF TAJIK >60 Normal >=60 [facility] Comment on above: Performed By: #### B MP #### [facility] [address] [address] [address] Maru Disla EGFR-NON AF TAJIK >60 Normal >=60 [facility] Comment on above: Performed By: #### B MP #### [facility] [address] [address] [address] Maru Disla Glucose [Mass/Vol] 191 mg/dL Critically high 74-106 [facility] Comment on above: Performed By: #### B MP #### [facility] [address] [address] [address] Maru Disla Potassium [Moles/Vol] 5.0 mmol/L Normal 3.5-5.1 [facility] Comment on above: Performed By: #### B MP #### [facility] [address] [address] [address] Maru Disla Sodium [Moles/Vol] 138 mmol/L Normal 136-145 [facility] Comment on above: Performed By: #### B MP #### [facility] [address] [address] [address] Maru Disla Urea nitrogen [Mass/Vol] 21.0 mg/dL Critically high 7.0-18.0 [facility] Comment on above: Performed By: #### B MP #### [facility] [address] [address] [address] Maru Disla Urea nitrogen/Creatinine [Mass ratio] 31.8 mg/mg Normal [facility] Comment on above: Performed By: #### B MP #### [facility] [address] [address] [address] Maru Disla XR CHEST 2 Von 04-06-2022 XR CHEST 2 V EXAM: XR CHEST 2 V HISTORY: SHORTNESS OF BREATH COMPARISON: 04/05/22. TECHNIQUE: pa/lat FINDINGS: LUNGS: Right middle lobe infiltrate obscuring the right hemidiaphragm. The left lung is clear. VASCULATURE: No increased pulmonary vasculature. PLEURA: No pneumothorax, effusion, or pleural thickening. CARDIAC: No cardiomegaly or cardiac silhouette abnormality. MEDIASTINUM: No visible mass or adenopathy. BONES: No fracture or visible bone lesion. OTHER: Negative. IMPRESSION: Increase in right middle lobe infiltrate Electronically authenticated by: CORINE ANGELA Date: 2022-04-06 07:14 Normal [facility] BLOOD GASES BTYon 04-05-2022 02 MODE NASAL CANNULA Normal [facility] Comment on above: Performed By: #### A BG #### [facility] [address] [place] [address] Dr. Maru Disla ALLENS TEST Positive [facility] Comment on above: Performed By: #### A BG #### [facility] [address] [place] [address] Dr. Maru Disla Base excess Calc (Bld) [Moles/Vol] -1.6000 mmol/L Normal -2.0-2.0 [facility] Comment on above: Performed By: #### A BG #### [facility] [address] [place] [address] Dr. Maru Disla BIPAP PRESSURE [facility] Comment on above: Performed By: #### A BG #### [facility] [address] [place] [address] Dr. Maru Disla CPAP [facility] Comment on above: Performed By: #### A BG #### [facility] [address] [place] [address] Dr. Maru Disla FIO[address] [facility] Comment on above: Performed By: #### A BG #### [facility] [address] [place] [address] Dr. Maru Disla HCO3 (Bld) [Moles/Vol] 24.0 mmol/L Normal 22.0-26.0 [facility] Comment on above: Performed By: #### A BG #### [facility] [address] [place] [address] Dr. Maru Disla LPM 2 [facility] Comment on above: Performed By: #### A BG #### [facility] [address] [place] [address] Dr. Maru Disla MINUTE VOLUME Normal [facility] Comment on above: Performed By: #### A BG #### [facility] [address] [address] [address] Maru Disla Oxygen (Bld) [Partial pressure] 56.1 mm[Hg] Critically low 80.0-100.0 [facility] Comment on above: Performed By: #### A BG #### [facility] [address] [place] [address] Dr. Maru Disla Oxygen saturation in Blood 89.9 % Critically low 95.0-100.0 [facility] Comment on above: Performed By: #### A BG #### [facility] [address] [place] [address] Dr. Maru Disla PCO2 43.3 mmHg Normal 35.0-45.0 [facility] Comment on above: Performed By: #### A BG #### [facility] [address] [place] [address] Dr. Maru Disla PEEP [facility] Comment on above: Performed By: #### A BG #### [facility] [address] [place] [address] Dr. Maru Disla pH (Bld) 7.352 [pH] Normal 7.350-7.450 [facility] Comment on above: Performed By: #### A BG #### [facility] [address] [place] [address] Dr. Maru Disla PIP [facility] Comment on above: Performed By: #### A BG #### [facility] [address] [place] [address] Dr. Maru Disla PS [facility] Comment on above: Performed By: #### A BG #### [facility] [address] [place] [address] Dr. Maru Disla PUNCTURE SITE LR [facility] Comment on above: Performed By: #### A BG #### [facility] [address] [place] [address] Dr. Maru Disla RATE [facility] Comment on above: Performed By: #### A BG #### [facility] [address] [place] [address] Dr. Maru Disla VENT MODE Normal [facility] Comment on above: Performed By: #### A BG #### [facility] [address] [place] [address] Dr. Maru Disla FL Normal [facility] Comment on above: Performed By: #### A BG #### [facility] [address] [place] [address] Dr. Maru Disla BNPon 04-05-2022 Natriuretic peptide B (Bld) [Mass/Vol] 471.0 pg/mL Normal <=900.0 [facility] Comment on above: Performed By: #### P OCGLUC #### [facility] [address] [place] [address] Dr. Maru Disla CBC AUTO DIFFon 04-05-2022 BASO # 0.0 103/ul Normal 0.0-0.1 [facility] Comment on above: Performed By: #### B MP #### [facility] [address] [place] [address] Dr. Maru Disla Basophils/100 WBC (Bld) 0.3 % Normal 0.2-2.0 [facility] Comment on above: Performed By: #### B MP #### [facility] [address] [place] [address] Dr. Maru Disla EO # 0.0 103/ul Normal 0.0-0.7 [facility] Comment on above: Performed By: #### B MP #### [facility] [address] [place] [address] Dr. Maru Disla Eosinophils/100 WBC (Bld) 0.0 % Critically low 0.9-7.0 [facility] Comment on above: Performed By: #### B MP #### [facility] [address] [place] [address] Dr. Maru Disla Erythrocyte distribution width (RBC) [Ratio] 13.2 % Normal 11.0-15.0 [facility] Comment on above: Performed By: #### B MP #### [facility] [address] [place] [address] Dr. Mrau Disla Hematocrit (Bld) [Volume fraction] 52.3 % Critically high 36.0-48.0 [facility] Comment on above: Performed By: #### B MP #### [facility] [address] [place] [address] Dr. Maru Disla Hemoglobin (Bld) [Mass/Vol] 16.6 g/dL Critically high 12.0-16.0 [facility] Comment on above: Performed By: #### B MP #### [facility] [address] [place] [address] Dr. Maru Disla IG # 0.05 10e3/ul Critically high 0.00-0.03 [facility] Comment on above: Performed By: #### B MP #### [facility] [address] [place] [address] Dr. Maru Disla IG % 0.4 % Normal 0.0-0.5 [facility] Comment on above: Performed By: #### B MP #### [facility] [address] [place] [address] Dr. Maru Disla LYMPH # 1.5 103/ul Normal 1.2-3.8 [facility] Comment on above: Performed By: #### B MP #### [facility] [address] [place] [address] Dr. Maru Disla Lymphocytes/100 WBC (Bld) 10.7 % Critically low 20.5-60.0 [facility] Comment on above: Performed By: #### B MP #### [facility] [address] [place] [address] Dr. Maru Disla MANUAL DIFF REQ NO Normal The [facility] Comment on above: Performed By: #### B MP #### [facility] [facility] [address] [place] [address] Dr. Maru Disla MCH (RBC) [Entitic mass] 29.7 pg Normal 26.7-34.0 [facility] Comment on above: Performed By: #### B MP #### [facility] [address] [place] [address] Dr. Maru Disla MCHC (RBC) [Mass/Vol] 31.7 g/dL Normal 29.9-35.2 [facility] Comment on above: Performed By: #### B MP #### [facility] [address] [address] [address] Maru Disla MCV (RBC) [Entitic vol] 93.6 fL Normal 81.0-99.0 [facility] Comment on above: Performed By: #### B MP #### [facility] [address] [address] [address] Maru Disla MONO # 1.5 103/ul Critically high 0.3-0.8 The [facility] Comment on above: Performed By: #### B MP #### [facility] [address] [address] [address] Maru Disla Monocytes/100 WBC (Bld) 11.0 % Normal 1.7-12.0 [facility] Comment on above: Performed By: #### B MP #### [facility] [address] [address] [address] Maru Disla NEUT # 10.8 103/ul Critically high 1.4-6.5 [facility] Comment on above: Performed By: #### B MP #### [facility] [address] [address] [address] Maru Disla Neutrophils/100 WBC (Bld) 77.6 % Critically high 43.0-75.0 [facility] Comment on above: Performed By: #### B MP #### [facility] [address] [address] [address] Maru Disla Platelet mean volume (Bld) [Entitic vol] 10.1 fL Normal 9.5-13.5 The [facility] Comment on above: Performed By: #### B MP #### [facility] [address] [place] [address] Dr. Maru Disla PLT 315 103/ul Normal 150-450 The [facility] Comment on above: Performed By: #### B MP #### [facility] [address] [address] [address] Maru Disla RBC 5.59 106/ul Critically high 4.20-5.40 The [facility] Comment on above: Performed By: #### B MP #### [facility] [address] [place] [address] Dr. Maru Disla WBC 13.9 103/ul Critically high 4.0-11.0 The [facility] Comment on above: Performed By: #### B MP #### [facility] [address] [place] [address] Dr. Maru Disla CULTURE BLOODon 04-05-2022 Microscopic examination of blood, culture Culture Observations: NO GROWTH AT 5 DAYS. Normal The [facility] Comment on above: Performed By: #### B MP #### [facility] [address] [place] [address] Dr. Maru Disla [facility]on SARS-CoV-2 (COVID-19) RNA NICOLETTE+probe Ql (Unsp spec) Not detected Normal NOT DETECTED The [facility] Comment on above: Result Comment: When diagnostic testing is negative, the possibility of a false negative should be considered in the context of a patient's recent exposures and the presence of clinical signs and symptoms consistent with SARS-CoV-2. This test is not yet approved or cleared by the [place] FDA. When there are no FDA-approved or cleared tests available, and other criteria are met, FDA can make tests available under an emergency access mechanism called an Emergency Use Authorization (EUA). The EUA for this test is supported by the [place] of Health and Human Service's declaration that circumstances exist to justify the emergency use of in vitro diagnostics for the detection and/or diagnosis of the virus that causes COVID-19. This EUA will remain in effect for the duration of the COVID-19 declaration justifying emergency of IVDs, unless it is terminated or revoked by the FDA (after which the test may no longer be used). Performed By: #### M ALBR #### [facility] [address] [place] [address] Dr. Maru Disla INFLUENZA A AND B AGon 04-05 INFLUENZA A AG Negative Normal NEGATIVE SEE COMMENT The [facility] Comment on above: Performed By: #### P OCGLUC #### [facility] [address] [address] [address] Maru Disla INFLUENZA B AG Negative Normal NEGATIVE SEE COMMENT [facility] Comment on above: Performed By: #### P OCGLUC #### [facility] [address] [place] [address] Dr. Maru Disla INTERNAL CONTROLS Within Normal Limits Normal Wi thin Normal Limits [facility] Comment on above: Performed By: #### P OCGLUC #### [facility] [address] [address] [address] Maru Disla LACTATE/LACTIC ACIDon 2021 Lactate [Moles/Vol] 3.1 mmol/L Critically high 0.4-1.9 [facility] Comment on above: Performed By: #### L ACT #### [facility] [address] [place] [address] Dr. Maru Disla Lactate [Moles/Vol] 3.1 mmol/L Critically high 0.4-1.9 [facility] Comment on above: Performed By: #### B MP #### [facility] [address] [place] [address] Dr. Maru Disla POINT OF CARE GLUCOSEon Glucose [Mass/Vol] 290 mg/dL Critically high [address] [place] [address] Comment on above: Performed By: #### M ALBR #### [facility] [address] [place] [address] Dr. Maru Disla Glucose [Mass/Vol] 309 mg/dL Critically high [address] [place] [address] Comment on above: Performed By: #### A BG #### [facility] [address] [place] [address] Dr. Maru Disla Glucose [Mass/Vol] 289 mg/dL Critically high [address] [place] [address] Comment on above: Performed By: #### P OCGLUC #### [facility] [address] [place] [address] Dr. Maru Disla Glucose [Mass/Vol] 325 mg/dL Critically high [address] [place] [address] Comment on above: Performed By: #### M ALBR #### [facility] [address] [address] [address] Maru Disla PROF 14(COMP METB)on 022 Albumin [Mass/Vol] 3.3 g/dL Critically low 3.4-5.0 Th e [facility] Comment on above: Performed By: #### P OCGLUC #### [facility] [address] [address] [address] Maru Disla Albumin/Globulin [Mass ratio] 0.7 {ratio} Normal [facility] Comment on above: Performed By: #### P OCGLUC #### [facility] [address] [address] [address] Maru Disla ALP [Catalytic activity/Vol] 105 U/L Normal 46-116 [facility] Comment on above: Performed By: #### P OCGLUC #### [facility] [address] [place] [address] Dr. Maru Disla ALT [Catalytic activity/Vol] 15 U/L Normal 14-59 [facility] Comment on above: Performed By: #### P OCGLUC #### [facility] [address] [place] [address] Dr. Maru Disla Anion gap [Moles/Vol] 13.2 mmol/L Normal [facility] Comment on above: Performed By: #### P OCGLUC #### [facility] [address] [place] [address] Dr. Maru Disla AST [Catalytic activity/Vol] 12 U/L Critically low 15-37 [facility] Comment on above: Performed By: #### P OCGLUC #### [facility] [address] [place] [address] Dr. Maru Disla Bilirubin [Mass/Vol] 0.4 mg/dL Normal 0.2-1.0 [facility] Comment on above: Performed By: #### P OCGLUC #### [facility] [address] [place] [address] Dr. Maru Disla Calcium [Mass/Vol] 8.8 mg/dL Normal 8.5-10.1 [facility] Comment on above: Performed By: #### P OCGLUC #### [facility] [address] [address] [address] Maru Disla Chloride [Moles/Vol] 101 mmol/L Normal 98-107 [facility] Comment on above: Performed By: #### P OCGLUC #### [facility] [address] [address] [address] Maru Disla CO2 [Moles/Vol] 26.0 mmol/L Normal 21.0-32.0 [facility] Comment on above: Performed By: #### P OCGLUC #### [facility] [address] [address] [address] Maru Disla Creatinine [Mass/Vol] 1.03 mg/dL Critically high 0.55-1.02 [facility] Comment on above: Performed By: #### P OCGLUC #### [facility] [address] [address] [address] Maru Disla EGFR-AF TAJIK >60 Normal >=60 [facility] Comment on above: Performed By: #### P OCGLUC #### [facility] [address] [address] [address] Maru Disla EGFR-NON AF TAJIK 54 mL/min/1.73m2 Critically low >=60 [facility] Comment on above: Performed By: #### P OCGLUC #### [facility] [address] [address] [address] Maru Disla Globulin (S) [Mass/Vol] 4.5 g/dL Normal [facility] Comment on above: Performed By: #### P OCGLUC #### [facility] [address] [address] [address] Maru Disla Glucose [Mass/Vol] 264 mg/dL Critically high 74-106 [facility] Comment on above: Performed By: #### P OCGLUC #### [facility] [address] [address] [address] Maru Disla Potassium [Moles/Vol] 4.2 mmol/L Normal 3.5-5.1 [facility] Comment on above: Performed By: #### P OCGLUC #### [facility] [address] [address] [address] Maru Disla Protein [Mass/Vol] 7.8 g/dL Normal 6.4-8.2 The [facility] Comment on above: Performed By: #### P OCGLUC #### [facility] [id number] Maru Disla Sodium [Moles/Vol] 136 mmol/L Normal 136-145 [facility] Comment on above: Performed By: #### P OCGLUC #### [facility] [address] [address] [address] Maru Disla Urea nitrogen [Mass/Vol] 14.0 mg/dL Normal 7.0-18.0 [facility] Comment on above: Performed By: #### P OCGLUC #### [facility] [address] [address] [address] Maru Disla Urea nitrogen/Creatinine [Mass ratio] 13.6 mg/mg Normal [facility] Comment on above: Performed By: #### P OCGLUC #### [facility] [address] [address] [address] Maru Disla TROPONIN, HIGH SENSITIVITYon 04-05-2022 HSTROP 10.5 pg/mL Normal 4.0-51.3 [facility] Comment on above: Result Comment: CUT- OFF POINTS HAVE BEEN ESTABLISHED BASED ON THE FOURTH UNIVERSAL DEFINITIONS OF MYOCARDIAL INFARCTION. THE UPPER REFERENCE LIMIT (URL) OF TROPONIN, DEFINED THE 99TH PERCENTILE OF cTnI DISTRIBUTION IN A REFERENCE POPULATION, HAS BEEN CONFIRMED THE DECISION THRESHOLD FOR VT DIAGNOSIS. Performed By: #### A BG #### [facility] [address] [address] [address] Maru Disla XR CHEST 1 Von 04-05-2022 XR CHEST 1 V XR CHEST 1 V 04/05/2022 5:29 AM EDT Indication: SHORTNESS OF BREATH Technique: Portable AP radiograph of the chest was obtained. Comparison: 04/22/2015 Findings: The lungs are adequately inflated. No acute rib fractures, pneumothorax or mediastinal shift. No consolidation, edema, or effusion. Heart is normal in size and contour. Impression: No acute findings. Electronically authenticated by: YECENIA MONTERO Date: 2022-04-05 06:[address] [facility] Encounters Encounter Date Encounter Type Care Provider Facility Start: 01-08-2023 End: [facility] Start: 10-02-2022 End: 10-03-2022 ambulatory DMITRY CHANDLER DOMENICOMelindaRAJEEVZ Facility:[facility] Start: 08-09-2022 End: 08-10-2022 ambulatory DMITRY ACUÑAMelindaBESSY Facility:[facility] Start: 07-02-2022 End: 07-02-2022 ambulatory [facility] Start: 06-21-2022 End: 06-22-[address] CORINE ANGELA Facility:[facility] Start: 06-20-2022 End: 06-21-2022 ambulatory DMITRY WILD Facility:[facility] Start: 06-07-2022 End: 06-07-2022 ambulatory Patrick Hart Facility:[facility] Start: 04-05-2022 End: 04-09-2022 Evaluation and management of inpatient DR TERI BLOCK . Facility:[facility] Start: 11-23-2021 End: 11-23-2021 ambulatory DMITRY CHANDLER AICMelindaHOLZ Facility:[facility] Start: 09-30-2018 End: 10-01-2018 Patient encounter procedure DEFAULT PHYSICIAN [facility] Start: 09-15-2018 End: 09-16-2018 Patient encounter procedure DEFAULT PHYSICIAN Facility:[facility] Payers Date Payer Category Payer Unknown [id number] [id number] 1959 Unknown [id number] [id number] 1959 Unknown [id number] 2.16.84 [id number] 1959 Unknown [id number] 2.16.84 [id number] 1959 Unknown [id number] 2.16.84 [id number] 1959 Unknown [id number] 2.16.84 [id number] 1959 Unknown [id number] 2.16.84 [id number] 1959 Unknown [id number] 2.16.84 [id number] 1959 Unknown [id number] 2.16.84 [id number] 1959 Unknown [id number] Unknown Progress note 01-08-2023 Note Date & Type Note Facility 01-08-2023 Note Patient here for 6 m o follow up hypertension, PAF, and MALAVE. Metoprolol was switched to carvedilol at last apt in Jun 2022. Had routine labs in August 2022. Denies chest pain, palpitations, and bleeding on Xarelto. Doing well cardiac [place]. Review of Systems Cardiovascular: Positive for dyspnea on exertion and leg swelling. Respiratory: Positive for cough. Neurological: Positive for light-headedness. All other systems reviewed and are negative. [facility] Progress note 01-08-2023 Note Date & Type Note Facility 01-08-2023 Note Cardiology Clinic No te Subjective Roddy Dior is a 62 y.o. year old female with paroxysmal A. Fib on Xarelto, hx of chest pain with normal stress 09/2018, dyspnea on exertion, COPD, DM type II, HTN, SANTO, and tobacco dependence seen in follow-up. Patient Active Problem List Diagnosis Atrial fibrillation (CMS/HCC) Chest pain Chronic obstructive lung disease (CMS/HCC) Essential hypertension Headache Palpitations Sleep apnea Syncope and collapse Tobacco dependence syndrome Type 2 diabetes mellitus without complication (CMS/HCC) Coronary arteriosclerosis Family History Problem Relation Name Age of Onset Stroke Father Social History Tobacco Use Smoking status: Some Days Types: Cigarettes Smokeless tobacco: Never Substance Use Topics Alcohol use: Not Currently Update: 01/08/2023 Has been doing okay no chest pain or worsening dyspnea Brother end of July Still smoking 1/4 ppd Wears supplemental Oxygen 2L Follows with pulmonology for COPD Tolerating Xarelto without bleeding issues Has not been monitoring her blood pressure at home Has intermittent ankle edema which is controlled with spironolactone Review of Systems Cardiovascular: Positive for dyspnea on exertion and leg swelling. Negative for chest pain, claudication, irregular heartbeat, near-syncope, orthopnea, palpitations, paroxysmal nocturnal dyspnea and syncope. Objective Visit Vitals BP 142/74 (BP Location: Right wrist, Patient Position: Sitting) Pulse 71 Ht 1.676 m (5' 6 ) Wt 117 kg (258 lb) SpO2 96% BMI 41.64 kg/m??? Smoking Status Some Days BSA 2.33 m??? Physical Exam General: Awake, alert, NAD Neck: No elevated JVP. No carotid bruit Pulm: Breath sounds clear to ascultation bilaterally with no wheeze, crackles or rhonchi Cards: Regular rate and rhythm, S1, S2. No S3 or S4 gallop. Murmur: none Extr: Lower extremity edema: None. Skin: warm, dry, well perfused Neuro: A&Ox3, No gross deficits Allergies Allergies Allergen Reactions Ciprofloxacin Other Metronidazole Other Penicillins Other Sulfamethoxazole-Trimethoprim Other Medications Current Outpatient Medications: albuterol 90 mcg/actuation inhaler, Ventolin HFA 90 mcg/actuation aerosol inhaler, Disp: , Rfl: aspirin 81 mg EC tablet, aspirin 81 mg tablet,delayed release TAKE 1 TABLET BY MOUTH ONCE DAILY, Disp: , Rfl: budesonide-formoteroL (Symbicort) 160-4.5 mcg/actuation inhaler, Symbicort 160 mcg-4.5 mcg/actuation HFA aerosol inhaler INHALE TWO (2) PUFFS BY MOUTH TWICE DAILY RINSE MOUTH OUT AFTER EACH USE., Disp: , Rfl: carvedilol (Coreg) 12.5 mg tablet, Take 1 tablet (12.5 mg) by mouth with breakfast and with evening meal. Replacing metoprolol, Disp: 60 tablet, Rfl: 11 cholecalciferol (Vitamin D-3) 125 MCG (5000 UT) capsule, 1 capsule in the morning., Disp: , Rfl: gabapentin (Neurontin) 600 mg tablet, Take by mouth in the morning, at noon, and at bedtime., Disp: , Rfl: insulin aspart (NovoLOG) 100 unit/mL (3 mL) pen, , Disp: , Rfl: insulin glargine (Lantus) 100 unit/mL (3 mL) pen, Lantus Solostar U-100 Insulin 100 unit/mL (3 mL) subcutaneous pen, Disp: , Rfl: Jardiance 25 mg, Take 25 mg by mouth once daily as directed., Disp: , Rfl: loratadine (Claritin) 10 mg tablet, Take 10 mg by mouth in the morning., Disp: , Rfl: losartan (Cozaar) 100 mg tablet, losartan 100 mg tablet TAKE 1 TABLET BY MOUTH DAILY, Disp: , Rfl: pantoprazole (ProtoNix) 40 mg EC tablet, pantoprazole 40 mg tablet,delayed release, Disp: , Rfl: PARoxetine (Paxil) 10 mg tablet, Take 10 mg by mouth in the morning., Disp: , Rfl: potassium chloride ER (Micro-K) 10 mEq ER capsule, potassium chloride ER 10 mEq capsule,extended release TAKE 1 CAPSULE BY MOUTH DAILY, Disp: , Rfl: rivaroxaban (Xarelto) 20 mg tablet, Xarelto 20 mg tablet TAKE 1 TABLET BY MOUTH ONCE DAILY, Disp: 90 tablet, Rfl: 3 rosuvastatin (Crestor) 5 mg tablet, Take 1 tablet (5 mg) by mouth at bedtime., Disp: 90 tablet, Rfl: 3 spironolactone (Aldactone) 25 mg tablet, Take 1 tablet (25 mg) by mouth in the morning and at bedtime., Disp: 180 tablet, Rfl: 3 tiotropium (Spiriva Respimat) 2.5 mcg/actuation inhaler, Spiriva Respimat 2.5 mcg/actuation solution for inhalation INHALE TWO (2) PUFFS BY MOUTH DAILY, Disp: , Rfl: Recent Labs 08/09/2022 Sodium 141, potassium 3.9, CO2 29.7, glucose 271, BUN 8, serum creatinine 0.74, estimated GFR greater than 60% Total cholesterol 110, HDL 38, triglyceride 98, LDL 52.4 Imaging and other tests Echo: 04/09/2022 Mild concentric left ventricular hypertrophy. Normal ventricular systolic function. LVEF is 65% No significant valvular dysfunction Normal atrial size Mildly elevated right-sided pressures No pericardial effusion Patient appears to be in sinus rhythm during exam ECHO: 05/18/2020 EF >55%, moderate LVH, no significant valvular dysfunction, trace pericardial effusion Lexiscan stress test (more content not included)... [facility] Progress note 07-02-2022 Note Date & Type Note Facility 07-02-2022 Note Patient here for 6 m o follow up afib and hypertension. She was admitted to [facility] in Apr 2022 for pneumonia and sepsis. Had echo while inpatient. Denies chest pain and bleeding on Xarelto. Denies palpitations and LE edema. She sees pulmonary for the first time in a few weeks. Review of Systems Cardiovascular: Positive for dyspnea on exertion. Respiratory: Positive for cough and shortness of breath. All other systems reviewed and are negative. [facility] Progress note 07-02-2022 Note Date & Type Note Facility 07-02-2022 Note Cardiovascular Medic [facility] SUBJECTIVE Chief Complaint Patient presents with Coronary Artery Disease Atrial Fibrillation Hypertension Roddy Dior is a 61 y.o. female here for follow-up. JULIA Ritter is a 59-year-old female who is seen today for follow-up. She has a known history of paroxysmal A. fib, hx of chest pain with normal stress 09/2018, dyspnea on exertion, COPD, DM type II, HTN, SANTO, smoker. 07/02/2022 -Since last seen she was admitted to the hospital for PNA and sepsis. Since then she has been on supplemental O2. She has MALAVE, this has been stable since then. She has quit smoking overall but reports having an occasional cigarrette. Advised she avoid smoking all together. She states understanding. -She denies c/o CP, orthopnea, PND, LE edema, dizziness/LH, palpitations. Patient Active Problem List Diagnosis Atrial fibrillation (CMS/HCC) Chest pain Chronic obstructive lung disease (CMS/HCC) Essential hypertension Headache Palpitations Sleep apnea Syncope and collapse Tobacco dependence syndrome Type 2 diabetes mellitus without complication ([facility]) Past Medical History: Diagnosis Date Atrial fibrillation (CMS/HCC) COPD (chronic obstructive pulmonary disease) (CMS/HCC) Coronary artery disease Diabetes mellitus (CMS/HCC) Hypertension Sleep apnea Family History Problem Relation Name Age of Onset Stroke Father Social History Tobacco Use Smoking status: Some Days Types: Cigarettes Smokeless tobacco: Never Substance Use Topics Alcohol use: Not Currently Allergies Allergen Reactions Ciprofloxacin Other Metronidazole Other Penicillins Other Sulfamethoxazole-Trimethoprim Other ROS Cardiovascular: Positive for dyspnea on exertion. Respiratory: Positive for cough and shortness of breath. All other systems reviewed and are negative. OBJECTIVE Visit Vitals BP 145/80 (BP Location: Left wrist, Patient Position: Sitting) Pulse 72 Ht 1.676 m (5' 6 ) Wt 117 kg (259 lb) SpO2 97% BMI 41.80 kg/m??? Smoking Status Some Days BSA 2.33 m??? Medications: Current Outpatient Medications: albuterol 90 mcg/actuation inhaler, Ventolin HFA 90 mcg/actuation aerosol inhaler, Disp: , Rfl: apixaban (Eliquis) 5 mg tablet, Take 5 mg by mouth in the morning and at bedtime., Disp: , Rfl: aspirin 81 mg EC tablet, aspirin 81 mg tablet,delayed release TAKE 1 TABLET BY MOUTH ONCE DAILY, Disp: , Rfl: budesonide-formoteroL (Symbicort) 160-4.5 mcg/actuation inhaler, Symbicort 160 mcg-4.5 mcg/actuation HFA aerosol inhaler INHALE TWO (2) PUFFS BY MOUTH TWICE DAILY RINSE MOUTH OUT AFTER EACH USE., Disp: , Rfl: cholecalciferol (Vitamin D-3) 125 MCG (5000 UT) capsule, 1 capsule in the morning., Disp: , Rfl: furosemide (Lasix) 20 mg tablet, furosemide 20 mg tablet TAKE 1 TABLET BY MOUTH EVERY DAY, Disp: , Rfl: gabapentin (Neurontin) 600 mg tablet, Take by mouth in the morning, at noon, and at bedtime., Disp: , Rfl: insulin asp prt-insulin aspart (NovoLOG Mix 70-30) 100 unit/mL (70-30) injection, Novolog Mix 70-30 FlexPen U-100 Insulin 100 unit/mL subcutaneous pen Inject by subcutaneous route., Disp: , Rfl: insulin glargine (Lantus) 100 unit/mL (3 mL) pen, Lantus Solostar U-100 Insulin 100 unit/mL (3 mL) subcutaneous pen, Disp: , Rfl: Jardiance 25 mg, Take 25 mg by mouth once daily as directed., Disp: , Rfl: losartan (Cozaar) 100 mg tablet, losartan 100 mg tablet TAKE 1 TABLET BY MOUTH DAILY, Disp: , Rfl: pantoprazole (ProtoNix) 40 mg EC tablet, pantoprazole 40 mg tablet,delayed release, Disp: , Rfl: potassium chloride ER (Micro-K) 10 mEq ER capsule, potassium chloride ER 10 mEq capsule,extended release TAKE 1 CAPSULE BY MOUTH DAILY, Disp: , Rfl: rivaroxaban (Xarelto) 20 mg tablet, Xarelto 20 mg tablet TAKE 1 TABLET BY MOUTH ONCE DAILY, Disp: , Rfl: rosuvastatin (Crestor) 5 mg tablet, Take 5 mg by mouth at bedtime., Disp: , Rfl: spironolactone (Aldactone) 25 mg tablet, Take 25 mg by mouth in the morning and at bedtime., Disp: , Rfl: tiotropium (Spiriva Respimat) 2.5 mcg/actuation inhaler, Spiriva Respimat 2.5 mcg/actuation solution for inhalation INHALE TWO (2) PUFFS BY MOUTH DAILY, Disp: , Rfl: carvedilol (Coreg) 12.5 mg tablet, Take 1 tablet (12.5 mg) by mouth with breakfast and with evening meal. Replacing metoprolol, Disp: 60 tablet, Rfl: 11 Physical Exam Vitals reviewed. Constitutional: Appearance: Normal appearance. She is normal weight. HENT: Head: Normocephalic and atraumatic. Right Ear: External ear normal. Left Ear: External ear normal. Eyes: Extraocular Movements: Extraocular movements intact. Conjunctiva/sclera: Conjunctivae normal. Pupils: Pupils are equal, round, and reactive to light. Neck: Vascular: No carotid bruit. Comments: No JVD Cardiovascular: Rate and Rhythm: Normal rate and regular rhythm. Pulses: Normal pulses. Heart sounds: Normal heart sounds. Pulmonary: (more content not included)... [facility] Clinical Note 06-07-2022 Note Date & Type Note Facility 06-07-2022 Note PROCEDURE: XR FOOT L T MIN 3 VIEWS HISTORY: Pain ; erythema and bruising over dorsum of left foot since injury one week ago COMPARISON: None. FINDINGS: BONES:No fracture, acute abnormality, or significant arthropathy. SOFT TISSUES:Mild distal dorsal soft tissue swelling. No radiopaque foreign body. EFFUSION:None visible. OTHER: Negative. IMPRESSION: 1. Mild dorsal soft tissue swelling. 2. No acute bone abnormality. Electronically authenticated by: PATRICK HART Date: 2022-06-07 08:43 [facility] Summary Purpose Family History No Family History Records FoundNo Family History Records FoundNo Family History Records Found Advance Directives No Advanced Directives Records FoundNo Advanced Directives Records FoundNo Advanced Directives Records Found Additional Source Comments INFORMATION SOURCE (unrecogn ized section and content) DATE CREATED AUTHOR 10/06/2018 [facility] DATE CREATED AUTHOR AUTHOR'S ORGANIZ ATION 10/09/2022 [facility] DATE CREATED AUTHOR AUTHOR'S ORGANIZ ATION 01/08/2023 [facility] FOR RECORDS PERTAINING TO PATIENTS WHO ARE OR HAVE BEEN ENROLLED IN A CHEMICAL DEPENDENCY/SUBSTANCEABUSE PROGRAM, SOME INFORMATION MAY BE OMITTED. This clinical summary was aggregated from multiple sources. Caution should be exercised in using it in the provision of clinical care. This summary normalizes information from multiple sources, and as a consequence, information in this document may materially change the coding, format and clinical context of patient data. In addition, data may be omitted in some cases. CLINICAL DECISIONS SHOULD BE BASED ON THE PRIMARY CLINICAL RECORDS. [employer] provides no warranty or guarantee of the accuracy or completeness of information in this document.
[2023-06-24 12:49] LABS: Glucometer 232 mg/dL (74-106)
[2023-06-24] MEDS: 0.9 % SODIUM CHLORIDE 250 ML IV.SOLN 10 ML IV (13:45)
[2023-06-24] MEDS: LEVOFLOXACIN IN DEXTROSE 5 % 750 MG/150 ML IV.SOLN 100 MG IV (13:45)
[2023-06-24] MEDS: GABAPENTIN 300 MG CAPSULE 600 MG PO ×2 (13:46→21:25)
[2023-06-24] MEDS: CARVEDILOL 12.5 MG TABLET PO ×2 (13:46→21:25)
[2023-06-24] MEDS: IPRATROPIUM/ALBUTEROL SULFATE 3 ML AMPUL.NEB IH ×2 (15:16→20:38)
[2023-06-24] MEDS: METHYLPREDNISOLONE SOD SUCC PF 125 MG/2 ML VIAL 60 MG IVP ×2 (17:10→21:59)
[2023-06-24 17:19] LABS: Glucometer 510 mg/dL (74-106)
[2023-06-24] MEDS: INSULIN ASPART 300 UNIT/3 ML PEN 25 UNIT SUBQ (17:32)
[2023-06-24 18:48] LABS: Glucometer 452 mg/dL (74-106)
[2023-06-24] MEDS: INSULIN ASPART 300 UNIT/3 ML PEN 15 UNIT SUBQ (19:58)
[2023-06-24] MEDS: BUDESONIDE 0.5 MG/2 ML AMPULE NEB IH (20:38)
[2023-06-24 20:55] LABS: Glucometer 282 mg/dL (74-106)
[2023-06-24] MEDS: CALCIUM CARBONATE 600 MG/VITAMIN D3 400 IU TABLET 1 TAB PO (21:25)
[2023-06-24] MEDS: ATORVASTATIN CALCIUM 20 MG TABLET PO (21:25)
[2023-06-24] MEDS: INSULIN DETEMIR 300 UNIT/3 ML INSULN.PEN 60 UNIT SUBQ (21:25)
[2023-06-24] MEDS: SPIRONOLACTONE 25 MG TABLET PO (21:25)
[2023-06-24] MEDS: INSULIN ASPART 300 UNIT/3 ML PEN SUBQ (21:26)
--- NOTE | 2023-06-24 21:44 | PC.NURSE ---
Bilateral under breast red and excoriated.
[2023-06-24] MEDS: NYSTATIN 15 GM POWDER 1 APPLIC TOPICAL (23:24)
--- NOTE | 2023-06-24 23:40 | PC.NURSE ---
Washed under bilateral breast with soap and water. Area dried well and nystatin power applied bilaterally. Dry clothes applied under breast to prevent skin to skin contact. Education provided to patient about wearing a sports bar at home since she prefers to not wear bras.
[2023-06-25] VITALS (7 sets, daily range): BP systolic 120–144; BP diastolic 69–70; PULSE 63–72; RESP 18; TEMP 36.5–36.6; O2SAT 84–92
[2023-06-25] MEDS: ACETAMINOPHEN 500 MG TABLET 1000 MG PO (01:18)
[2023-06-25] MEDS: METHYLPREDNISOLONE SOD SUCC PF 125 MG/2 ML VIAL 60 MG IVP ×2 (04:04→09:19)
[2023-06-25] MEDS: IPRATROPIUM/ALBUTEROL SULFATE 3 ML AMPUL.NEB IH ×2 (04:22→11:07)
[2023-06-25 05:32] LABS: Basophils Percent Auto 0.1 % (0.2-2.0); Hematocrit 53.3 % (36.0-48.0); Hemoglobin 17.8 g/dL (12.0-16.0); Immature Granulocytes Abs Auto 0.09 10^3/uL (0.00-0.03); Immature Granulocytes Pct Auto 0.6 % (0.0-0.5); Lymphocytes Absolute Auto 1.3 10^3/uL (1.2-3.8); Mean Corpuscular HGB Conc 33.4 g/dL (29.9-35.2); Mean Corpuscular Hemoglobin 30.4 pg (26.7-34.0); Mean Corpuscular Volume 91.1 fL (81.0-99.0); Mean Platelet Volume 10.6 fL (9.5-13.5); Monocytes Absolute Auto 0.2 10^3/uL (0.3-0.8); Monocytes Percent Auto 1.6 % (1.7-12.0); Neutrophils Absolute Auto 12.6 10^3/uL (1.4-6.5); Neutrophils Percent Auto 88.7 % (43.0-75.0); Platelet Count 277 10^3/uL (150-450); Red Blood Count 5.85 10^6/uL (4.20-5.40); Red Cell Distribution Width 12.4 % (11.0-15.0); White Blood Count 14.2 10^3/uL (4.0-11.0)
[2023-06-25 05:47] LABS: Anion Gap 13.9; BUN Creatinine Ratio 24.7; Calcium 9.5 mg/dL (8.5-10.1); Carbon Dioxide 25.6 mmol/L (21.0-32.0); Chloride 97 mmol/L (98-107); Estimated GFR (African America >60 (>=60); Estimated GFR (Non-African Ame >60 (>=60); Glucose 206 mg/dL (74-106); Potassium 3.5 mmol/L (3.5-5.1); Sodium 133 mmol/L (136-145)
[2023-06-25] MEDS: GABAPENTIN 300 MG CAPSULE 600 MG PO ×2 (06:30→14:14)
[2023-06-25] MEDS: NYSTATIN 15 GM POWDER 1 APPLIC TOPICAL ×2 (06:30→14:15)
[2023-06-25] MEDS: OMEPRAZOLE 40 MG CAPSULE.DR PO (06:30)
[2023-06-25] MEDS: INSULIN ASPART 300 UNIT/3 ML PEN SUBQ ×2 (07:49→11:58)
[2023-06-25 07:54] LABS: Glucometer 191 mg/dL (74-106)
[2023-06-25] MEDS: 0.9 % SODIUM CHLORIDE 250 ML IV.SOLN 10 ML IV (08:16)
[2023-06-25] MEDS: CANAGLIFLOZIN 100 MG TABLET 300 MG PO (08:17)
[2023-06-25] MEDS: CEL IM (08:17)
[2023-06-25] MEDS: FLU VAC QS IM (08:17)
[2023-06-25] MEDS: CALCIUM CARBONATE 600 MG/VITAMIN D3 400 IU TABLET 1 TAB PO (08:17)
[2023-06-25] MEDS: LOSARTAN POTASSIUM 50 MG TABLET 100 MG PO (08:17)
[2023-06-25] MEDS: RIVAROXABAN 10 MG TABLET 20 MG PO (08:17)
[2023-06-25] MEDS: SPIRONOLACTONE 25 MG TABLET PO (08:17)
[2023-06-25] MEDS: CETIRIZINE HCL 10 MG TABLET PO (08:17)
[2023-06-25] MEDS: PAROXETINE HCL 20 MG TABLET 10 MG PO (08:17)
[2023-06-25] MEDS: CARVEDILOL 12.5 MG TABLET PO (08:17)
[2023-06-25] MEDS: POTASSIUM CHLORIDE 10 MEQ ER TABLET PO (08:17)
--- NOTE | 2023-06-25 09:26 | P.HP_ITS ---
<Statement entered by Brandon Monterroso MD - 06/25/23 17:11> Patient seen and examined, agree with assessment and plan below. Presented with worsening SOB and history of COPD. Prior home O2 but no longer using. In ER chest x-ray negative but Covid positive. Admitted on steroids, antibiotics, and breathing treatments. Noted hypoxia in hospital and arranged for home O2 with portability. Discharged home. Diagnosis: 1. Acute exacerbation of COPD 2. Covid 3. Acute on chronic hypoxic respiratory failure 4. DM2 5. HTN 6. Afib H&P: HPI History of Present Illness Chief complaint: SOB Narrative: 06/25/23 0940 This is a 62-year-old female patient with a past medical history as outlined below including COPD with a history of chronic respiratory failure but not currently using home O2, daily tobacco abuse, DM 2, HTN, and A-fib on Xarelto; who presented to the ED yesterday morning complaining of increasing shortness of breath over the last 2 days. She noted onset of mild rhinorrhea, dry cough, and hot flashes with sweating on Saturday night. She became increasingly short of breath especially with activity by Saturday (yesterday) morning and presented to the ED for further evaluation. Workup in the ED revealed positive COVID-19 infection but without evidence of infiltrate on chest x-ray, uncontrolled hyperglycemia (285), and suspected COPD exacerbation based on clinical exam findings. She was admitted yesterday afternoon in observation to the hospitalist service. At the time of my exam the patient is sitting on the side of the bed, having just finished walking in her room without oxygen. She is not in any respiratory distress and states that she only feels a little bit short of breath. Her O2 sats are ranging from 90-93% on 3L O2. She reports that she was previously on home O2 at 3L NC, but because of difficulties with insurance coverage and increased cost of electricity with use of the concentrator, she returned the oxygen back to the DME provider. She monitors her O2 at home closely and usually ranges from 88%-95% on RA while at rest. She is open to using home O2 again and we will monitor her saturations while ambulating and order home O2 if she qualifies. Likely d/c home later today after 4 hrs of IVF administration for mild dehydration. DISPOSITION: The pt qualified for home O2 use during ambulation, but is overall improved with IV steroid administration, antibiotics and scheduled breathing treatments. She is being discharged home in stable condition with a DME order for home O2. She is also prescribed a 7 day course of Levaquin, a 5 day burst of steroids, and an albuterol HFA inhaler as the pt only is prescribed maintenan ce inhalers at this time. She should follow up with her PCP within 1 week. Review of Systems ROS Status of ROS 10 or more systems reviewed and unremark able except as noted in history and below [facility] Medical History (Updated 06/25/23 @ 12:25 by Cecilia Cantu NP) A-fib ?I48.91 - Unspecified atrial fibrillation (ICD-10) Hypertension ?I10 - Essential (primary) hypertension (ICD-10) Diabetes ?E11.9 - Type 2 diabetes mellitus without complications (ICD-10) Acute shoulder pain ?M25.519 - Pain in unspecified shoulder (ICD-10) Hyperlipidemia ?E78.5 - Hyperlipidemia, unspecified (ICD-10) Depression ?F32.A - Depression, unspecified (ICD-10) Chronic obstructive pulmonary disease ?J44.9 - Chronic obstructive pulmonary disease, unspecified (ICD-10) Surgical History (Updated 06/24/23 @ 12:13 by Aliyah Ruiz RN) History of appendectomy ?Z90.49 - Acquired absence of other specified parts of digestive tract (ICD- 10) Hx of cholecystectomy ?Z90.49 - Acquired absence of other specified parts of digestive tract (ICD- 10) H/O: hysterectomy ?Z90.710 - Acquired absence of both cervix and uterus (ICD-10) Family History (Updated 06/24/23 @ 12:13 by Aliyah Ruiz RN) Mother Family history of diabetes mellitus Grandfather Family history of diabetes mellitus Father Family history of stroke Social History (Updated 06/24/23 @ 12:14 by Aliyah Ruiz RN) Within the past year, how often did you have a drink containing alcohol: never Score interpretation: A score less than 3 is consistent with normal alcohol consumption. Smoking status: Current every day smoker Non-prescribed substance use: denies use Highest level of school completed/degree received: high school graduate Gender Identity: female Meds Home Medications and Allergies Home Medications Medication Instructions Recorded Confirmed Type aspirin 81 mg tablet,delayed 81 mg PO DAILY 04/05/23 06/24/23 History release budesonide-formoterol HFA 160 2 puff inhalation BID 04/05/23 06/24/23 History mcg-4.5 mcg/actuation aerosol inhaler (Symbicort) calcium carbonate 500 mg-vitamin 1 tab PO BID 04/05/23 06/24/23 History D3 10 mcg (400 unit) tablet carvedilol 12.5 mg tablet 12.5 mg PO BID 04/05/23 06/24/23 History empagliflozin 25 mg tablet 25 mg PO DAILY 04/05/23 06/24/23 History (Jardiance) gabapentin 600 mg tablet 600 mg PO TID 04/05/23 06/24/23 History insulin aspart U-100 100 unit/mL 1 sliding scale dose subcut 04/05/23 06/24/23 History (3 mL) subcutaneous pen (Novolog TIDWMEAL FlexPen U-100 Insulin aspart) insulin glargine 100 unit/mL (3 60 unit subcut QPM 04/05/23 06/24/23 History mL) subcutaneous pen (Lantus Solostar U-100 Insulin) loratadine 10 mg tablet 10 mg PO DAILY 04/05/23 06/24/23 History losartan 100 mg tablet 100 mg PO DAILY 04/05/23 06/24/23 History pantoprazole 40 mg tablet,delayed 40 mg PO DAILY 04/05/23 06/24/23 History release paroxetine HCl 10 mg tablet 10 mg PO DAILY 04/05/23 06/24/23 History potassium chloride 10 mEq 10 meq PO DAILY 04/05/23 06/24/23 History capsule,extended release rivaroxaban 20 mg tablet (Xarelto) 20 mg PO DAILY 04/05/23 06/24/23 History rosuvastatin 5 mg tablet 5 mg PO DAILY 04/05/23 06/24/23 History spironolactone 25 mg tablet 25 mg PO BID 04/05/23 06/24/23 History tiotropium bromide 2.5 2 puff inhalation DAILY 04/05/23 06/24/23 History mcg/actuation mist for inhalation (Spiriva Respimat) albuterol sulfate 90 mcg/actuation 2 inh inhalation Q4H PRN shortness 06/25/23 Rx aerosol inhaler of breath or wheezing #8.5 grams levofloxacin 750 mg tablet 750 mg PO DAILY 7 days #7 tabs 06/25/23 Rx prednisone 20 mg tablet 20 mg PO DAILY 5 days #5 tabs 06/25/23 Rx Allergies Allergy/AdvReac Type Severity Reaction Status Date / Time ciprofloxacin [From Cipro] AdvReac Intermediate Vomiting Verified 06/24/23 09:23 metronidazole [From Flagyl] AdvReac Intermediate Vomiting Verified 06/24/23 09:23 Penicillins AdvReac Intermediate Vomiting Verified 06/24/23 09:23 sulfamethoxazole AdvReac Intermediate Vomiting Verified 11/09/22 11:26 [From Bactrim] trimethoprim [From Bactrim] AdvReac Intermediate Vomiting Verified 11/09/22 11:26 Exam Constitutional Vital Signs, click to edit/add: Last Vital Signs Temp 97.7 F 06/25/23 06:00 Pulse 67 06/25/23 06:00 Resp 18 06/25/23 06:00 BP 144/69 H 06/25/23 06:00 Pulse Ox 90 L 06/25/23 06:00 O2 Del Method Nasal Cannula 06/25/23 06:00 O2 Flow Rate 3 06/25/23 06:00 Common normals: no apparent distress, oriented x3, alert and well nourished General appearance: cooperative Orientation/consciousness: Yes awake HENMT Common normals: normocephalic, head/scalp atraumatic, hearing grossly normal bilaterally, external nose normal and moist oral mucous membranes Head and scalp: normocephalic and atraumatic Eye Common normals: PERRL, EOMs intact bilaterally, conjunctivae normal and no scleral icterus Alignment: alignment normal Eyelid: eyelids normal Neck & C-Spine Common normals: full ROM, supple and no JVD Chest Common normals: inspection of chest normal Chest: symmetrical chest wall rise Respiratory Common normals: normal respiratory effort, no retractions and no use of accessory muscles Auscultation: wheezes (RLL EE ) Cardio Common normals: no JVD, regular rate, regular rhythm, S1 normal heart sound, S2 normal heart sound, no gallops, no clicks, no murmurs, no rub and peripheral pulses 2+ throughout GI Common normals: Normal to inspection, nondistended, normoactive bowel sounds present, soft to palpation, non-tender, no hepatosplenomegaly, no masses and no bruits Palpation: soft and no hepatosplenomegaly Bladder/kidney exam: bladder normal to palpation Back & Pelvis Common normals: thoracic and lumbar spine normal to inspection Extremity Common normals: normal capillary refill and no pedal edema General: normal exam except as noted; no clubbing and no cyanosis Neuro Isabela Coma Scale: GCS not evaluated Common normals: CN's II-XII intact bilaterally, moves all extremities, no focal motor deficits and no sensory deficits noted Speech: speech normal Motor exam: strength 5/5 throughout Psych Common normals: mental status grossly normal, thought process normal, affect normal and activity/motor behavior normal Results Labs Labs: Short CBC 06/24/23 06/25/23 Range/Units 09:38 05:15 WBC 9.4 14.2 H (4.0-11.0) 10^3/uL Hgb 18.1 H 17.8 H (12.0-16.0) g/dL Hct 55.0 H 53.3 H (36.0-48.0) % Plt Count 269 277 (150-450) 10^3/uL BMP 06/24/23 06/25/23 09:38 05:15 Sodium 139 133 L Potassium 3.8 3.5 Chloride 100 97 L Carbon Dioxide 28.4 25.6 BUN 7.0 20.0 H Creatinine 0.91 0.81 Glucose 285 H 206 H Calcium 9.0 9.5 Pulse Oximetry Attestation: I have reviewed the pertinent pulse oximetry results. ECG Interpretation: Sinus rhythm Anteroseptal myocardial infarction, age undetermined Abnormal left axis deviation Abnormal ECG Compared to ECG from 04/05/2023 at 8:44 AM No significant changes Imaging Chest x-ray: Attestation: I have reviewed the pertinent imaging results. Radiologist's impression: IMPRESSION: No acute heart or lung disease identified. Assessment and Plan Assessment and Plan (1) Acute exacerbation of chronic obstructive pulmonary disease: Assessment and Plan: ACUTE * Adm observation * Levaquin IVPB for suspected concurrent bronchitis * Plan 7-10 day course * Solumedrol 125 mg IVP x 1 given in ED, continue w/ 60 mg q6h * D/C home w/ prednisone burst * Scheduled duoneb breathing treatments * Pt already prescribed Symbicort and Spiriva at home * Add PRN Ventolin HFA * See respiratory failure below (2) COVID: Assessment and Plan: ACUTE * Mild symptoms, afebrile and w/o signficant congestion. No evidence of COVID pneumonia on imaging * Supportive care (3) Acute and chronic respiratory failure ([id number]): Assessment and Plan: ACUTE * Pt sats reportedly in the mid 80s on arrival of EMS at home * Improved w/ above treatments and able to ambulate short distances w/o signific ant dyspea and borderline O2 sat on RA today * Likely continues to need home O2 at baseline * Nursing to test for home O2 requirements w/ ambulation. Will order home O2 at d/c if she qualifies (4) Dehydration: Assessment and Plan: ACUTE * Mild w/ pre-renal azotemia on AM labs and appears clinically dry * Give NS at 125/hr x 4 hrs prior to d/c today * Encourage PO fluid intake (5) Hyperlipidemia: Assessment and Plan: CHRONIC * Continue home statin (6) Diabetes: Assessment and Plan: CHRONIC * w/ Hyperglycemia on presentation * Likely 2/2 acute illness * Improved * Pt given additional insulin bolus dosing for glucose correction in the ED * Continue home Jardiance, Lantus * Add Med SSI for glucose correction Qualifiers: Diabetes mellitus complication status: with hyperglycemia Diabetes mellitus halfway insulin use: with exterminator use Diabetes mellitus type: type 2 Qualified Code(s): E11.65 - Type 2 diabetes mellitus with hyperglycemia; Z79.4 - exterminator (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 (7) Hypertension: Assessment and Plan: CHRONIC * Continue home spironolactone, losartan and Coreg (8) A-fib: Assessment and Plan: CHRONIC * Continue home Coreg for rate control * Continue home Xarelto for CVA prevention
[2023-06-25] MEDS: 0.9 % SODIUM CHLORIDE 1,000 ML 125 ML IV (10:19)
[2023-06-25] MEDS: BUDESONIDE 0.5 MG/2 ML AMPULE NEB IH (11:07)
[2023-06-25 11:14] LABS: Glucometer 237 mg/dL (74-106)
--- NOTE | 2023-06-25 11:14 | RESP.RT ---
placed on 1 LPM NC, SpO2 did not rise >89%, increased to 2 LPM, SpO2 90%
--- NOTE | 2023-06-25 11:32 | CM.NOTE ---
Rounds made with Dr. Monterroso, pt will discharge to home today. Discussed with RN for walk test for home oxygen prior to discharge.
--- NOTE | 2023-06-25 12:26 | SWNOTE1 ---
Pt will need home oxygen, case management spoke with her in regards to this. She had in past, but did not follow up so lost her home oxygen. She would like to use same company. EJ made call and it is medical service company. EJ to send referral once H&P is completed.
--- NOTE | 2023-06-25 14:11 | SWNOTE1 ---
SW called and spoke with [employer] and they are reaching out to the person working on pt's oxygen and they will give SW a call back. They were able to look pt up and see they are working on it.
[2023-06-25] MEDS: LEVOFLOXACIN IN DEXTROSE 5 % 750 MG/150 ML IV.SOLN 100 MG IV (14:14)
[2023-06-25] MEDS: ASPIRIN 81 MG TABLET.DR PO (14:14)
--- NOTE | 2023-06-26 10:16 | CM.DCFOLLOWU ---
1st attempt discharge follow up call made by Belkis Ovalle on 06/26/23, no answer
--- NOTE | 2023-06-28 15:33 | CM.DCFOLLOWU ---
Person spoke with: Denae How are you feeling? Much better How is your pain? No pain Did you understand your discharge instructions? Yes Do you have any questions about your discharge instructions? No Were you given any prescriptions at discharge? Yes Were you able to get your prescriptions filled? Yes Do you understand how to take your medications as ordered? Yes Do you have any questions about your follow up appointment and do you plan to keep your follow up appointment? No questions and will go to follow up appt. Is there anything else that you would like to discuss? No- pt does have tank from [employer] and waiting for them to come back out. Pt has contact number if she does not hear back from them soon. Questions/Comments/Concerns/Other:
== END 2023-06-25 16:16 | disposition home or self-care (01) ==
LOC: ER 11:02 → MS 12:03
PROVIDERS: Admitting Provider Family Medicine; Emergency Provider Emergency Medicine; PCP Nurse Practitioner; Visit Provider Family Medicine
DX: J44.1 Chronic obstructive pulmonary disease with (acute) exacerbation (principal); U07.1 COVID-19; J96.21 Acute and chronic respiratory failure with hypoxia; E86.0 Dehydration; E78.5 Hyperlipidemia, unspecified; E11.65 Type 2 diabetes mellitus with hyperglycemia; I10 Essential (primary) hypertension; I48.20 Chronic atrial fibrillation, unspecified; F32.A Depression, unspecified; F17.210 Nicotine dependence, cigarettes, uncomplicated; Z99.81 Dependence on supplemental oxygen; Z23 Encounter for immunization; Z79.82 Long term (current) use of aspirin; Z79.899 Other long term (current) drug therapy; Z79.4 Long term (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; Z79.01 Long term (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 of anticoagulants; Z90.49 Acquired absence of other specified parts of digestive tract; Z90.710 Acquired absence of both cervix and uterus
CPT/HCPCS: 36415; 71045; 80048; 82948; 85025; 87040; 87804; 87811; 90674; 93005; 94640; 94667; 94668; 94761; 96365; 96366; 96376; 99285; G0008; G0378; J2930

== ENCOUNTER 2023-08-05 08:36 | Outpatient (OUT) | payer OTHER, SELFPAY ==
--- NOTE | 2023-08-05 | MM_ITS ---
Patient Name: RODDY HORN MR#: [id number] : 1960 Exam Date: 08/05/2023 Ordering Doctor: DMITRY Rush CNP RADIOLOGY REPORT PROCEDURE: MM TOMOSYNTHESIS SCREENING BI COMPARISON: MG MAMM SCREEN 3D BALDO CAD, 06/07/2021. MG MAMM SCREEN 3D BALDO CAD, 06/21/2022. INDICATIONS: Screening for malignant neoplasm Calculator Name NCI Breast Cancer Risk Assessment Tool 5 Year Breast Cancer Risk 1.60% Lifetime Breast Cancer Risk 6.60% Personal Breast Cancer No Personal Ovarian Cancer No Treatments None Family Cancers Grandmother-maternal with breast cancer at age 65. LOCATION: [facility] BREAST COMPOSITION: Scattered areas fibroglandular density. FINDINGS: DIAGNOSTIC CATEGORY 1--NEGATIVE. NO CHANGE FROM COMPARISON ASSESSMENT. Scattered benign-appearing calcifications are present. Scattered benign-appearing lymph nodes are present. RIGHT BREAST: No significant suspicious finding. LEFT BREAST: No significant suspicious finding. RECOMMENDATIONS: ROUTINE MAMMOGRAM AND CLINICAL EVALUATION IN 12 MONTHS. PLEASE NOTE: A NORMAL MAMMOGRAM DOES NOT EXCLUDE THE POSSIBILITY OF BREAST CANCER. A CLINICALLY SUSPICIOUS PALPABLE LUMP SHOULD BE BIOPSIED. Dictated by: Taras Gomez MD on 08/05/2023 at 11:42 Approved by: Taras Gomez MD on 08/05/2023 at 11:45
--- OUTSIDE RECORDS SUMMARY | 2023-08-05 08:42 | XMS_ITS | CCD ---
Author Name Unknown Address [address] [place] [address] Organization [facility] Care Team Providers Care Sm[employer] And Flame Specialist Name Role Phone PHYSICIAN, DEFAULT Admitting Unavailable PHYSICIAN, DEFAULT Attending Unavailable AICHHOLZ, MAIRA Primary Care Unavailable PHYSICIAN, DEFAULT Admitting Unavailable PHYSICIAN, DEFAULT Attending Unavailable AICHHOLZ, MAIRA Primary Care Unavailable AICHHOLZ, DREDGE MASTER MAIRA Primary Care Unavailable SACHA MONTANO Admitting Unavailable KIAN POTTS Consulting Unavailabl e SACHA MONTANO Attending Unavailable Patrick Hart Consulting Unavailable TAJ ., HANNAH Admitting Unavailable AICHHOLZ, DREDGE MASTER MAIRA Primary Care Unavailable TAJ Macdonald, HANNAH Attending Unavailable TAJ ., HANNAH Consulting Unavailable AICHHOLZ, DREDGE MASTER MAIRA Consulting Unavailable AICHHOLZ, DREDGE MASTER MAIRA Primary Care Unavailable AICHHOLZ, DREDGE MASTER MAIRA Admitting Unavailable AICHHOLZ, DREDGE MASTER MAIRA Attending Unavailable AICHHOLZ, DREDGE MASTER MAIRA Attending Unavailable AICHHOLZ, DREDGE MASTER MAIRA Consulting Unavailable AICHHOLZ, DREDGE MASTER MAIRA Primary Care Unavailable AICHHOLZ, DREDGE MASTER MAIRA Admitting Unavailable Abebeeber, Patrick Consulting Unavailable AICHHOLZ, DREDGE MASTER MAIRA Attending Unavailable AICHHOLZ, DREDGE MASTER MAIRA Consulting Unavailable AICHHOLZ, DREDGE MASTER MAIRA Primary Care Unavailable AICHHOLZ, DREDGE MASTER MAIRA Admitting Unavailable DR CORINE ANGELA V Consulting Unavailable AICHHOLZ, DREDGE MASTER MAIRA Primary Care Unavailable AICHHOLZ, DREDGE MASTER MAIRA Admitting Unavailable AICHHOLZ, DREDGE MASTER MAIRA Attending Unavailable AICHHOLZ, DREDGE MASTER MAIRA Consulting Unavailable DR TERI MAURO Admitting Unavailable AICHHOLZ, DREDGE MASTER MAIRA Primary Care Unavailable DR TERI MAURO Attending Unavailable DR TERI MAURO Consulting Unavailable DR CORINE ANGELA V Consulting Unavailable DR BRANDON MCFARLANE Consulting Unavailable MARKER ., DR SOLOMON Consulting Unavailable YECENIA MONTERO Consulting Unavailable LORENZO ACE Attending Unavailable ADRIANE MUJICA Attending Unavailable Victor Manuel MCKINLEY, Maira Unavailable Brandon Mcfarlane MD Primary Care Provider MAIRA RUSH Attending Unavailable Allergies Allergy Classification Reported Allergen(s) Allergy Type Date of Onset Reaction(s) Facility (2 sources) Ciprofloxacin Drug Allergy 10-11-19 12 [facility] Repository (2 sources) metroNIDAZOLE Drug Allergy 10-11-19 12 [facility] (3 sources) Penicillins; Translations: [PENICILLINS] Drug allergy (disorder) 10-11-19 12 [facility] Repository (2 sources) Sulfamethoxazole / Trimethoprim Drug Allergy 10-11-19 12 [facility] Rep[facility] (4 sources) Ciprofloxacin; Translations: [CIPROFLOXACIN] Drug Allergy 05-21-20 14 GI intolerance [facility] Repository (4 sources) metroNIDAZOLE; Translations: [METRONIDAZOLE] Drug Allergy 05-21-20 14 GI intolerance [facility] Repository (1 source) Sulfamethoxazole / Trimethoprim; Translations: [SULFAMETHOXAZOLE-TR IMETHOPRIM] Drug Allergy 05-21-20 14 [facility] Repository (3 sources) Penicillins Drug Allergy 06-29-19 24 GI intolerance [facility] (3 sources) Sulfamethoxazole Allergy to substance 06-29-19 24 GI intolerance [facility] (3 sources) Trimethoprim Drug Allergy 06-29-19 24 GI intolerance [facility] Medications Current Medications Medication Drug Class(es) Dates Sig (Normalized) Sig (Original) 60 actuat budesonide 0.16 mg/actuat / formoterol fumarate 0.0045 mg/actuat metered dose inhaler (3 sources) Corticosteroid, beta2-Adrenergic Agonist Start: 05-30-2023 take 2 puff(s) by mouth twice daily Symbicort 160-4.5 MCG/ACT inhaler Indications: COPD mixed type (CMS/HCC) INHALE 2 PUFFS BY MOUTH TWICE DAILY *RINSE MOUTH AFTER USE* 10.2 g 10 05/30/2023 Active carvedilol 12.5 mg oral tablet (3 sources) alpha-Adrenergic Matthew, beta-Adrenergic Matthew Start: 06-24-2023 take 1 tablet by mouth in the morning carvedilol (Coreg) 12.5 MG tablet Take 1 tablet by mouth in the morning and 1 tablet in the evening. Take with meals. 0 06/24/2023 Active empagliflozin 25 mg oral tablet (3 sources) Sodium-Glucose Cotransporter 2 Inhibitor Start: 06-24-2023 take 1 tablet by mouth in the morning Jardiance 25 MG Take 1 tablet by mouth in the morning. 0 06/24/2023 Active furosemide 20 mg oral tablet (3 sources) Loop Diuretic Start: 06-24-2023 take 1 tablet by mouth in the morning furosemide (Lasix) 20 MG tablet Take 1 tablet by mouth in the morning. 0 06/24/2023 Active 3 ml insulin glargine 100 unt/ml pen injector (3 sources) Insulin Analog Start: 06-24-2023 Lantus SoloStar 100 UNIT/ML pen Inject 60 Units under the skin at bedtime 0 06/24/2023 Active isopropyl alcohol 0.7 ml/ml medicated pad (3 sources) Start: 07-01-2023 End: 10-09-2023 Alcohol Swabs (Easy Touch Alcohol Prep Medium) 70 % pads Indications: Type 2 diabetes mellitus with diabetic neuropathy, with long-term current use of insulin (CMS/HCC) Apply 1 each topically in the morning and 1 each at noon and 1 each in the evening and 1 each before bedtime. 400 each 3 07/01/2023 10/09/2023 Active losartan potassium 100 mg oral tablet (3 sources) Angiotensin 2 Receptor Matthew Start: 06-26-2023 End: 07-26-2023 take 1 tablet by mouth in the morning losartan (Cozaar) 100 MG tablet Indications: Primary hypertension (CMS/HCC) Take 1 tablet (100 mg) by mouth in the morning. 30 tablet 3 06/26/2023 07/26/2023 Active pantoprazole 40 mg delayed release oral tablet (3 sources) Proton Pump Inhibitor Start: 06-24-2023 take 1 tablet by mouth in the morning pantoprazole (ProtoNix) 40 MG EC tablet Take 1 tablet by mouth in the morning. 0 06/24/2023 Active PARoxetine hydrochloride 10 mg oral tablet (3 sources) Serotonin Reuptake Inhibitor Start: 06-26-2023 End: 07-26-2023 take 1 tablet by mouth in the morning PARoxetine (Paxil) 10 MG tablet Indications: JODRAN (generalized anxiety disorder) (CMS/HCC) Take 1 tablet (10 mg) by mouth in the morning. 30 tablet 3 06/26/2023 07/26/2023 Active potassium chloride 10 meq extended release oral capsule (3 sources) Start: 06-24-2023 take 1 capsule by mouth in the morning potassium chloride ER (Micro-K) 10 MEQ ER capsule Take 1 capsule by mouth in the morning. 0 06/24/2023 Active rivaroxaban 20 mg oral tablet (3 sources) Factor Xa Inhibitor Start: 06-24-2023 take 1 tablet by mouth at mealtime Xarelto 20 MG tablet Take 1 tablet by mouth in the evening. Take with meals 0 06/24/2023 Active rosuvastatin calcium 5 mg oral tablet (3 sources) HMG-CoA Reductase Inhibitor Start: 06-24-2023 take 1 tablet by mouth in the morning rosuvastatin (Crestor) 5 MG tablet Take 1 tablet by mouth in the morning. 0 06/24/2023 Active 10 actuat tiotropium 0.0025 mg/actuat inhalation spray (3 sources) Anticholinergic Start: 06-24-2023 take 2 puff(s) by inhalation in the morning Spiriva Respimat 2.5 MCG/ACT inhaler Inhale 2 puffs in the morning. 0 06/24/2023 Active Problems Active Problems Problem Classification Problem Date Documented Da te Episodic/Chronic Anxiety disorders (8 sources) Generalized anxiety disorder; Translations: [Generalized anxiety disorder] Onset: 06-26-2023 06-26-2023 Chronic Cardiac dysrhythmias (6 sources) Paroxysmal atrial fibrillation; Translations: [Atrial fibrillation] Onset: 06-11-2022 Chronic Chronic obstructive pulmonary disease and bronchiectasis (14 sources) Chronic obstructive pulmonary disease, unspecified; Translations: [Chronic obstructive pulmonary disease with (acute) lower respiratory infection] Onset: 04-19-2022 Chronic Congestive heart failure; nonhypertensive (1 source) Acute combined systolic (congestive) and diastolic (congestive) heart failure; Translations: [ACUTE COMB SYSTOLIC AND DIASTOLIC CHF] Onset: 04-19-2022 Chronic Diabetes mellitus with complications (15 sources) Type 2 diabetes mellitus with unspecified complications; Translations: [Type 2 diabetes mellitus with hyperglycemia] Onset: 04-19-2022 06-26-2023 Chronic Diabetes mellitus without complication (3 sources) Type 2 diabetes mellitus without complications; Translations: [TYPE 2 DM WITHOUT COMPLICATIONS] Onset: 06-11-2022 Chronic Disorders of lipid metabolism (13 sources) Hyperlipidemia, unspecified; Translations: [Pure hypercholesterolemia , unspecified] Onset: 11-27-2021 Chronic Esophageal disorders (6 sources) Gastro-esophageal reflux disease without esophagitis; Translations: [Gastroesophageal reflux disease] Onset: 06-11-2022 07-18-2023 Chronic Essential hypertension (8 sources) Essential (primary) hypertension; Translations: [Essential hypertension] Onset: 06-11-2022 Chronic Genitourinary symptoms and ill-defined conditions (3 sources) Incontinence; Translations: [Mixed incontinence] Onset: 07-18-2023 07-18-2023 Chronic Hypertension with complications and secondary hypertension (1 source) Hypertensive heart disease with heart failure; Translations: [HTN HEART DISEASE W/HEART FAIL] Onset: 04-19-2022 Chronic Mood disorders (1 source) Major depressive disorder, single episode, unspecified; Translations: [SHELTON DEPRESS D/O SINGLE EPIS UNS] Onset: 04-19-2022 Chronic Mood disorders (1 source) Mood disorders; Translations: [DEPRESSION UNSPECIFIED] Onset: 06-11-2022 Nutritional deficiencies (5 sources) Vitamin D deficiency; Translations: [Vitamin D deficiency, unspecified] Onset: 07-18-2023 07-18-2023 Chronic Osteoporosis (7 sources) Age-related osteoporosis without current pathological fracture; Translations: [Osteoporosis] Onset: 10-02-2022 Chronic Other aftercare (3 sources) custodial (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; Translations: [FIRE AND SAFETY HELPER CURRENT USE OF INSULIN] Onset: 06-11-2022 Episodic Other bone disease and musculoskeletal deformities (1 source) Other specified disorders of bone density and structure, unspecified site; Translations: [OTH D/O BONE DEN STRUCT UNS SITE] Onset: 10-08-2022 Episodic Other injuries and conditions due to external causes (4 sources) Open wound; Translations: [Other injury of unspecified body region, initial encounter] Onset: 07-18-2023 4 Episodic Other nutritional; endocrine; and metabolic disorders (1 source) Morbid (severe) obesity due to excess calories; Translations: [MORBID SEVERE OBES D/T EXCESS JORDYN] Onset: 06-11-2022 Chronic Other nutritional; endocrine; and metabolic disorders (1 source) Body mass index (BMI) 40.0-44.9, adult; Translations: [BODY MASS INDEX BMI 40.0-44.9 ADULT] Onset: 06-11-2022 Chronic Other nutritional; endocrine; and metabolic disorders (5 sources) Body mass index 40+ - severely obese; Translations: [Morbid (severe) obesity due to excess calories] Onset: 07-18-2023 07-18-2023 Chronic Other screening for suspected conditions (not mental disorders or infectious disease) (9 sources) Encounter for screening mammogram for malignant neoplasm of breast; Translations: [Patient encounter status] Onset: 06-21-2022 Episodic Other upper respiratory disease (3 sources) Seasonal allergy; Translations: [Other seasonal allergic rhinitis] Onset: 07-18-2023 07-18-2023 Chronic Pancreatic disorders (not diabetes) (3 sources) Drug-induced acute pancreatitis; Translations: [Drug induced acute pancreatitis without necrosis or infection] Onset: 07-18-2023 07-18-2023 Episodic Residual codes; unclassified (5 sources) Obstructive sleep apnea syndrome; Translations: [Obstructive sleep apnea (adult) (pediatric)] Onset: 07-18-2023 07-18-2023 Chronic Residual codes; unclassified (3 sources) Edema of extremity; Translations: [Localized edema] Onset: 07-18-2023 07-18-2023 Episodic Residual codes; unclassified (3 sources) Tobacco user; Translations: [Tobacco use] Onset: 07-18-2023 07-18-2023 Episodic Residual codes; unclassified (3 sources) Patient noncompliance - general; Translations: [Medical non-compliance] Onset: 07-18-2023 07-18-2023 Episodic Respiratory failure; insufficiency; arrest (adult) (1 source) Dependence on supplemental oxygen; Translations: [DEPENDENCE ON SUPPLEMENTAL OXYGEN] Onset: 06-11-2022 Chronic Substance-related disorders (3 sources) Nicotine dependence, cigarettes, uncomplicated; Translations: [Nicotine dependence, unspecified, uncomplicated] Onset: 06-11-2022 Chronic Unclassified (1 source) CONTACT W/AND (SUSP) EXPOS COVID-19; Translations: [CONTACT W/AND (SUSP) EXPOS COVID-19] Onset: 04-19-2022 Viral infection (4 sources) Disease caused by 2019-nCoV; Translations: [COVID-19] Onset: 07-18-2023 07-18-2023 Episodic Past or Other Problems Problem Classification Problem [...] Onset: 06-11-2022 Episodic Other aftercare (1 source) custodial (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 of aspirin; Translations: [HALFWAY CURRENT USE OF ASPIRIN] Onset: 06-11-2022 Episodic Other aftercare (1 source) Other ad terminal makeup operator (current) drug therapy; Translations: [OTH FIRE AND SAFETY HELPER CURRENT DRUG THERAPY] Onset: 06-11-2022 Episodic Other aftercare (1 source) termite helper (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 of anticoagulants; Translations: [HALFWAY CURRNT USE ANTICOAGULANTS] Onset: 11-27-2021 Episodic Other connective tissue disease (3 sources) Pain in left foot; Translations: [PAIN IN LEFT FOOT] Onset: 06-07-2022 Episodic Pneumonia (except that caused by tuberculosis [...] Range Facility Office Visiton 01-08-2023 Follow-up visit [id number] Roddy Dior 1960 F Date Provider Department Center 01/08/2023 [id number] ACE DAWSON [facility] Family History Problem Relation Age of Onset Stroke Father Family Status - Relation Status Age at Father Level of Service:51397 [place] OFFICE/OUTPATIENT ESTABLISHED MOD MDM 30-39 MIN Normal [facility] XR DEXA BONE DENSITYon 10-02 XR DEXA [...] PATRICK HART Date: 2022-10-02 12:[address] [facility] LIPID PROFILEon 08-09-2022 CHOL-HDL RATIO NORM SEE BELOW Normal [facility] Comment on above: Result Comment: 3.3 - 4.4 LOW RISK 4.4 - 7.1 AVERAGE RISK 7.1 - 11.0 MODERATE RISK >11.0 HIGH RISK Performed By: #### M ALBR #### [facility] [address] [place] [address] Dr. Maru Disla Cholesterol [Mass/Vol] 110 mg/dL Normal <=200 [facility] Comment on above: Performed By: #### M ALBR #### [facility] [address] [address] [address] Maru Disla Cholesterol in HDL [Mass/Vol] 38 mg/dL Critically low 40-60 [facility] Comment on above: Performed By: #### M ALBR #### [facility] [address] [address] [address] Maru Disla Cholesterol in LDL [Mass/Vol] 52.4 mg/dL Normal [facility] Comment on above: Performed By: #### M ALBR #### [facility] [address] [address] [address] Maru Disla Cholesterol.total/C holesterol in HDL [Mass ratio] 2.9 {ratio} Normal [facility] Comment on above: Performed By: #### M ALBR #### [facility] [address] [address] [address] Maru Disla HDL NORMAL > or = 60 mg/dl - LO W CARDIOVASCULAR RISK <40 mg/dl - HIGH CARDIOVASCULAR RISK Normal [facility] Comment on above: Performed By: #### M ALBR #### [facility] [address] [address] [address] Maru Disla LDL CALC NORMAL SEE BELOW Normal [facility] Comment on above: Result Comment: <100 mg/dl OPTIMAL 100 - 129 mg/dl NEAR OR ABOVE OPTIMAL 130 - 159 mg/dl BORDERLINE HIGH 160 - 189 mg/dl HIGH >190 mg/dl VERY HIGH Performed By: #### M ALBR #### [facility] [address] [address] [address] Maru Disla Triglyceride [Mass/Vol] 98 mg/dL Normal <=150 [facility] Comment on above: Performed By: #### M ALBR #### [facility] [address] [address] [address] Maru Disla VLDL CALC 19.6 mg/dL Normal [facility] Comment on above: Performed By: #### M ALBR #### [facility] [address] [place] [address] Dr. Maru Disla MICROALBUMIN, RAND URon -0 mALB <1.3 Normal <=30.0 [facility] Comment on above: Performed By: #### M ALBR #### [facility] [address] [place] [address] Dr. Maru Disla PROF 14(COMP METB)on 023 Albumin [Mass/Vol] 3.6 g/dL Normal 3.4-5.0 [facility] Comment on above: Performed By: #### M ALBR #### [facility] [address] [place] [address] Dr. Maru Disla Albumin/Globulin [Mass ratio] 0.9 {ratio} Normal [facility] Comment on above: Performed By: #### M ALBR #### [facility] [address] [place] [address] Dr. Maru Disla ALP [Catalytic activity/Vol] 92 U/L Normal 46-116 [facility] Comment on above: Performed By: #### M ALBR #### [facility] [address] [place] [address] Dr. Maru Dilsa ALT [Catalytic activity/Vol] 22 U/L Normal 14-59 [facility] Comment on above: Performed By: #### M ALBR #### [facility] [address] [place] [address] Dr. Maru Disla Anion gap [Moles/Vol] 13.2 mmol/L Normal [facility] Comment on above: Performed By: #### M ALBR #### [facility] [address] [place] [address] Dr. Maru Disla AST [Catalytic activity/Vol] 17 U/L Normal 15-37 [facility] Comment on above: Performed By: #### M ALBR #### [facility] [address] [place] [address] Dr. Maru Disla Bilirubin [Mass/Vol] 0.4 mg/dL Normal 0.2-1.0 [facility] Comment on above: Performed By: #### M ALBR #### [facility] [address] [address] [address] Maru Disla Calcium [Mass/Vol] 9.3 mg/dL Normal 8.5-10.1 [facility] Comment on above: Performed By: #### M ALBR #### [facility] [address] [address] [address] Maru Disla Chloride [Moles/Vol] 102 mmol/L Normal 98-107 [facility] Comment on above: Performed By: #### M ALBR #### [facility] [address] [place] [address] Dr. Maru Disla CO2 [Moles/Vol] 29.7 mmol/L Normal 21.0-32.0 [facility] Comment on above: Performed By: #### M ALBR #### [facility] [address] [place] [address] Dr. Maru Disla Creatinine [Mass/Vol] 0.74 mg/dL Normal 0.55-1.02 [facility] Comment on above: Performed By: #### M ALBR #### [facility] [address] [place] [address] Dr. Maru Disla EGFR-AF NEPALESE >60 Normal >=60 [facility] Comment on above: Performed By: #### M ALBR #### [facility] [address] [place] [address] Dr. Maru Disla EGFR-NON AF NEPALESE >60 Normal >=60 [facility] Comment on above: Performed By: #### M ALBR #### [facility] [address] [place] [address] Dr. Maru Disla Globulin (S) [Mass/Vol] 3.9 g/dL Normal [facility] Comment on above: Performed By: #### M ALBR #### [facility] [address] [place] [address] Dr. Maru Disla Glucose [Mass/Vol] 271 mg/dL Critically high 74-106 [facility] Comment on above: Performed By: #### M ALBR #### [facility] [address] [place] [address] Dr. Maru Disla Potassium [Moles/Vol] 3.9 mmol/L Normal 3.5-5.1 [facility] Comment on above: Performed By: #### M ALBR #### [facility] [address] [address] [address] Maru Disla Protein [Mass/Vol] 7.5 g/dL Normal 6.4-8.2 [facility] Comment on above: Performed By: #### M ALBR #### [facility] [address] [address] [address] Maru Disla Sodium [Moles/Vol] 141 mmol/L Normal 136-145 [facility] Comment on above: Performed By: #### M ALBR #### [facility] [address] [address] [address] Maru Disla Urea nitrogen [Mass/Vol] 8.0 mg/dL Normal 7.0-18.0 [facility] Comment on above: Performed By: #### M ALBR #### [facility] [address] [address] [address] Maru Disla Urea nitrogen/Creatinine [Mass ratio] 10.8 mg/mg Normal [facility] Comment on above: Performed By: #### M ALBR #### [facility] [address] [place] [address] Dr. Maru Disla Office Visiton 07-02-2022 Follow-up visit [id number] BarbyRoddy 1960 F Date Provider Department Center 07/02/2022 ADRIANE VALERA [facility] Family History Problem Relation Age of Onset Stroke Father Family Status - Relation Status Age at Father Level of Service:14708 [place] OFFICE/OUTPATIENT ESTABLISHED MOD MDM 30-39 MIN Reason for Visit and Comments: Coronary Artery Disease [187] Atrial Fibrillation [80] Hypertension [647863] Normal [facility] MG MAMM SCREEN 3D BALDO CADon 06-21-2022 MG MAMM SCREEN 3D BALDO CAD Patient: RODDY DIORRenae Exam Date: 06/21/2022 : 1960 Gender:F 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 LOCATION: [facility] BREAST COMPOSITION: Scattered areas fibroglandular density. FINDINGS: [...] MD on 06/21/2022 at 10:10 Normal [facility] HEMOGLOBINon 06-20-2022 Hemoglobin (Bld) [Mass/Vol] 15.1 g/dL Normal 12.0-16.0 [facility] Comment on above: Performed By: #### B MP #### [facility] [address] [place] [address] Dr. Maru Disla BNPon 04-09-2022 Natriuretic peptide B (Bld) [Mass/Vol] 824.0 pg/mL Normal <=900.0 [facility] Comment on above: Performed By: #### M ALBR #### [facility] [address] [address] [address] Maru Disla CARDIAC BREANNE ADMITon 022 CK [Catalytic activity/Vol] 364 U/L Critically high 26-192 [facility] Comment on above: Performed By: #### P OCGLUC #### [facility] [address] [place] [address] Dr. Maru Disla CK.MB [Mass/Vol] 5.60 ng/mL Critically high <=3.60 [facility] Comment on above: Performed By: #### P OCGLUC #### [facility] [address] [place] [address] Dr. Maru Disla HSTROP 454.7 pg/mL Critically high 4.0-51.3 [facility] Comment on above: Result Comment: CUT- OFF POINTS HAVE BEEN ESTABLISHED BASED ON THE FOURTH UNIVERSAL DEFINITIONS OF MYOCARDIAL INFARCTION. THE UPPER REFERENCE LIMIT (URL) OF TROPONIN, DEFINED THE 99TH PERCENTILE OF cTnI DISTRIBUTION IN A REFERENCE POPULATION, HAS BEEN CONFIRMED THE DECISION THRESHOLD FOR NC DIAGNOSIS. Performed By: #### P OCGLUC #### [facility] [address] [place] [address] Dr. Maru Disla REDD 137 ng/mL Critically high 9-82 [facility] Comment on above: Performed By: #### P OCGLUC #### [facility] [address] [place] [address] Dr. Maru Disla CBC AUTO DIFFon 04-09-2022 BASO # 0.0 103/ul Normal 0.0-0.1 [facility] Comment on above: Performed By: #### A BG #### [facility] [address] [place] [address] Dr. Maru Disla Basophils/100 WBC (Bld) 0.2 % Normal 0.2-2.0 [facility] Comment on above: Performed By: #### A BG #### [facility] [address] [place] [address] Dr. Maru Disla EO # 0.0 103/ul Normal 0.0-0.7 [facility] Comment on above: Performed By: #### A BG #### [facility] [address] [place] [address] Dr. Maru Disla Eosinophils/100 WBC (Bld) 0.0 % Critically low 0.9-7.0 [facility] Comment on above: Performed By: #### A BG #### [facility] [address] [place] [address] Dr. Maru Disla Erythrocyte distribution width (RBC) [Ratio] 13.4 % Normal 11.0-15.0 [facility] Comment on above: Performed By: #### A BG #### [facility] [address] [place] [address] Dr. Maru Disla Hematocrit (Bld) [Volume fraction] 48.3 % Critically high 36.0-48.0 [facility] Comment on above: Performed By: #### A BG #### [facility] Laboratory [address] [place] [address] Dr. Maru Disla Hemoglobin (Bld) [Mass/Vol] 15.3 g/dL Normal 12.0-16.0 [facility] Comment on above: Performed By: #### A BG #### [facility] [address] [place] [address] Dr. Maru Disla IG # 0.11 10e3/ul Critically high 0.00-0.03 [facility] Comment on above: Performed By: #### A BG #### [facility] [address] [place] [address] Dr. Maru Disla IG % 0.6 % Critically high 0.0-0.5 [facility] Comment on above: Performed By: #### A BG #### [facility] [address] [place] [address] Dr. Maru Disla LYMPH # 1.1 103/ul Critically low 1.2-3.8 [facility] Comment on above: Performed By: #### A BG #### [facility] [address] [place] [address] Dr. Maru Disla Lymphocytes/100 WBC (Bld) 6.1 % Critically low 20.5-60.0 [facility] Comment on above: Performed By: #### A BG #### [facility] [address] [place] [address] Dr. Maru Disla MANUAL DIFF REQ NO Normal [facility] Comment on above: Performed By: #### A BG #### [facility] [address] [place] [address] Dr. Maru Disla MCH (RBC) [Entitic mass] 29.8 pg Normal 26.7-34.0 [facility] Comment on above: Performed By: #### A BG #### [facility] [address] [address] [address] Maru Disla MCHC (RBC) [Mass/Vol] 31.7 g/dL Normal 29.9-35.2 [facility] Comment on above: Performed By: #### A BG #### [facility] [address] [address] [address] Maru Disla MCV (RBC) [Entitic vol] 94.2 fL Normal 81.0-99.0 [facility] Comment on above: Performed By: #### A BG #### [facility] [address] [address] [address] Maru Disla MONO # 0.7 103/ul Normal 0.3-0.8 [facility] Comment on above: Performed By: #### A BG #### [facility] [address] [address] [address] Maru Disla Monocytes/100 WBC (Bld) 3.9 % Normal 1.7-12.0 [facility] Comment on above: Performed By: #### A BG #### [facility] [address] [address] [address] Maru Disla NEUT # 15.3 103/ul Critically high 1.4-6.5 [facility] Comment on above: Performed By: #### A BG #### [facility] [address] [address] [address] Maru Disla Neutrophils/100 WBC (Bld) 89.2 % Critically high 43.0-75.0 [facility] Comment on above: Performed By: #### A BG #### [facility] [address] [address] [address] Maru Disla Platelet mean volume (Bld) [Entitic vol] 10.4 fL Normal 9.5-13.5 [facility] Comment on above: Performed By: #### A BG #### [facility] [address] [address] [address] Maru Disla PLT 311 103/ul Normal 150-450 [facility] Comment on above: Performed By: #### A BG #### [facility] [address] [place], [place] [address] Dr. Maru Disla RBC 5.13 106/ul Normal 4.20-5.40 [facility] Comment on above: Performed By: #### A BG #### [facility] [address] [place], [place] [address] Dr. Maru Disla WBC 17.2 103/ul Critically high 4.0-11.0 [facility] Comment on above: Performed By: #### A BG #### [facility] [address] [place], [place] [address] Dr. Maru Disla ECHOCARDIO M/2D COMPLETEon 1 06-09-2021 ECHOCARDIO M/2D COMPLETE Patient: RODDY DIOR Exam Date: 04/09/2022 : 1960 Gender:F Ordering : DR TERI BLOCK . Admission #: [id number] Family : Order #: [id number] CLICK HERE TO VIEW EXAM ECHOCARDIOGRAM REPORT [...] Subramanian M.D. on 04/10/2022 at 15:[address] [facility] POINT OF CARE GLUCOSEon 11-0 Glucose [Mass/Vol] 171 mg/dL Critically high 74-106 [facility] Comment on above: Performed By: #### P OCGLUC #### [facility] [address] [address] [address] Maru Disla Glucose [Mass/Vol] 97 mg/dL Normal 74-106 [facility] Comment on above: Performed By: #### M ALBR #### [facility] [address] [address] [address] Maru Disla PROF CHEM 8 (BAS METB)on Anion gap [Moles/Vol] 9.1 mmol/L Normal [facility] Comment on above: Performed By: #### P OCGLUC #### [facility] [address] [address] [address] Maru Disla Calcium [Mass/Vol] 8.7 mg/dL Normal 8.5-10.1 [facility] Comment on above: Performed By: #### P OCGLUC #### [facility] [address] [address] [address] Maru Disla Chloride [Moles/Vol] 104 mmol/L Normal 98-107 [facility] Comment on above: Performed By: #### P OCGLUC #### [facility] [address] [address] [address] Maru Disla CO2 [Moles/Vol] 33.2 mmol/L Critically high 21.0-32.0 [facility] Comment on above: Performed By: #### P OCGLUC #### [facility] [address] [address] [address] Maru Disla Creatinine [Mass/Vol] 0.87 mg/dL Normal 0.55-1.02 [facility] Comment on above: Performed By: #### P OCGLUC #### [facility] [address] [address] [address] Maru Disla EGFR-AF NEPALESE >60 Normal >=60 [facility] Comment on above: Performed By: #### P OCGLUC #### [facility] [address] [address] [address] Maru Disla EGFR-NON AF NEPALESE >60 Normal >=60 [facility] Comment on above: Performed By: #### P OCGLUC #### [facility] [address] [address] [address] Maru Disla Glucose [Mass/Vol] 115 mg/dL Critically high 74-106 [facility] Comment on above: Performed By: #### P OCGLUC #### [facility] [address] [address] [address] Maru Disla Potassium [Moles/Vol] 4.3 mmol/L Normal 3.5-5.1 [facility] Comment on above: Performed By: #### P OCGLUC #### [facility] [address] [address] [address] Maru Disla Sodium [Moles/Vol] 142 mmol/L Normal 136-145 [facility] Comment on above: Performed By: #### P OCGLUC #### [facility] [address] [address] [address] Maru Disla Urea nitrogen [Mass/Vol] 36.0 mg/dL Critically high 7.0-18.0 [facility] Comment on above: Performed By: #### P OCGLUC #### [facility] [address] [address] [address] Maru Disla Urea nitrogen/Creatinine [Mass ratio] 41.4 mg/mg Normal [facility] Comment on above: Performed By: #### P OCGLUC #### [facility] [address] [address] [address] Maru Disla CARDIAC BREANNE 3-6on 2 CK [Catalytic activity/Vol] 381 U/L Critically high 26-192 [facility] Comment on above: Performed By: #### C MREP #### [facility] [address] [address] [address] Maru Disla CK.MB [Mass/Vol] 7.91 ng/mL Critically high <=3.60 [facility] Comment on above: Performed By: #### C MREP #### [facility] [address] [address] [address] Maru Disla HSTROP 766.1 pg/mL Critically high 4.0-51.3 [facility] Comment on above: Result Comment: CUT- OFF POINTS HAVE BEEN ESTABLISHED BASED ON THE FOURTH UNIVERSAL DEFINITIONS OF MYOCARDIAL INFARCTION. THE UPPER REFERENCE LIMIT (URL) OF TROPONIN, DEFINED THE 99TH PERCENTILE OF cTnI DISTRIBUTION IN A REFERENCE POPULATION, HAS BEEN CONFIRMED THE DECISION THRESHOLD FOR NC DIAGNOSIS. Performed By: #### C MREP #### [facility] [address] [address] [address] Maru Disla CK [Catalytic activity/Vol] 356 U/L Critically high 26-192 [facility] Comment on above: Performed By: #### C MREP #### [facility] [address] [address] [address] Maru STEPHENS.MB [Mass/Vol] 8.66 ng/mL Critically high <=3.60 [facility] Comment on above: Performed By: #### C MREP #### [facility] [address] [address] [address] Maru Disla HSTROP 610.6 pg/mL Critically high 4.0-51.3 [facility] Comment on above: Result Comment: CUT- OFF POINTS HAVE BEEN ESTABLISHED BASED ON THE FOURTH UNIVERSAL DEFINITIONS OF MYOCARDIAL INFARCTION. THE UPPER REFERENCE LIMIT (URL) OF TROPONIN, DEFINED THE 99TH PERCENTILE OF cTnI DISTRIBUTION IN A REFERENCE POPULATION, HAS BEEN CONFIRMED THE DECISION THRESHOLD FOR NC DIAGNOSIS. Performed By: #### C MREP #### [facility] [address] [address] [address] Maru Disla CARDIAC BREANNE ADMITon 022 CK [Catalytic activity/Vol] 381 U/L Critically high 26-192 [facility] Comment on above: Performed By: #### C MADM #### [facility] [address] [address] [address] Maru STEPHENS.MB [Mass/Vol] 8.07 ng/mL Critically high <=3.60 [facility] Comment on above: Performed By: #### C MADM #### [facility] [address] [address] [address] Maru Disla HSTROP 220.2 pg/mL Critically high 4.0-51.3 [facility] Comment on above: Result Comment: CUT- OFF POINTS HAVE BEEN ESTABLISHED BASED ON THE FOURTH UNIVERSAL DEFINITIONS OF MYOCARDIAL INFARCTION. THE UPPER REFERENCE LIMIT (URL) OF TROPONIN, DEFINED THE 99TH PERCENTILE OF cTnI DISTRIBUTION IN A REFERENCE POPULATION, HAS BEEN CONFIRMED THE DECISION THRESHOLD FOR NC DIAGNOSIS. Performed By: #### C MADM #### [facility] [address] [address] [address] Maru Disla REDD 269 ng/mL Critically high 9-82 [facility] Comment on above: Performed By: #### C MADM #### [facility] [address] [address] [address] Maru Disla CBC AUTO DIFFon 04-08-2022 BASO # 0.0 103/ul Normal 0.0-0.1 [facility] Comment on above: Performed By: #### M ALBR #### [facility] [address] [place] [address] Dr. Maru Disla Basophils/100 WBC (Bld) 0.2 % Normal 0.2-2.0 [facility] Comment on above: Performed By: #### M ALBR #### [facility] [address] [address] [address] Maru Disla EO # 0.0 103/ul Normal 0.0-0.7 [facility] Comment on above: Performed By: #### M ALBR #### [facility] [address] [place] [address] Dr. Maru Disla Eosinophils/100 WBC (Bld) 0.0 % Critically low 0.9-7.0 [facility] Comment on above: Performed By: #### M ALBR #### [facility] [address] [place] [address] Dr. Maru Disla Erythrocyte distribution width (RBC) [Ratio] 13.4 % Normal 11.0-15.0 [facility] Comment on above: Performed By: #### M ALBR #### [facility] [address] [place] [address] Dr. Maru Disla Hematocrit (Bld) [Volume fraction] 52.7 % Critically high 36.0-48.0 [facility] Comment on above: Performed By: #### M ALBR #### [facility] [address] [place] [address] Dr. Maru Disla Hemoglobin (Bld) [Mass/Vol] 16.8 g/dL Critically high 12.0-16.0 [facility] Comment on above: Performed By: #### M ALBR #### [facility] [address] [place] [address] Dr. Maru Disla IG # 0.13 10e3/ul Critically high 0.00-0.03 [facility] Comment on above: Performed By: #### M ALBR #### [facility] [address] [place] [address] Dr. Maru Disla IG % 0.6 % Critically high 0.0-0.5 [facility] Comment on above: Performed By: #### M ALBR #### [facility] [address] [place] [address] Dr. Maru Disla LYMPH # 0.8 103/ul Critically low 1.2-3.8 [facility] Comment on above: Performed By: #### M ALBR #### [facility] [address] [place] [address] Dr. Maru Disla Lymphocytes/100 WBC (Bld) 3.4 % Critically low 20.5-60.0 [facility] Comment on above: Performed By: #### M ALBR #### [facility] [address] [place] [address] Dr. Maru Disla MANUAL DIFF REQ NO Normal [facility] Comment on above: Performed By: #### M ALBR #### [facility] [address] [place] [address] Dr. Maru Disla MCH (RBC) [Entitic mass] 29.4 pg Normal 26.7-34.0 [facility] Comment on above: Performed By: #### M ALBR #### [facility] [address] [place] [address] Dr. Maru Disla MCHC (RBC) [Mass/Vol] 31.9 g/dL Normal 29.9-35.2 [facility] Comment on above: Performed By: #### M ALBR #### [facility] [address] [place] [address] Dr. Maru Disla MCV (RBC) [Entitic vol] 92.1 fL Normal 81.0-99.0 [facility] Comment on above: Performed By: #### M ALBR #### [facility] [address] [place] [address] Dr. Maru Disla MONO # 0.8 103/ul Normal 0.3-0.8 [facility] Comment on above: Performed By: #### M ALBR #### [facility] [address] [place] [address] Dr. Maru Disla Monocytes/100 WBC (Bld) 3.4 % Normal 1.7-12.0 [facility] Comment on above: Performed By: #### M ALBR #### [facility] [address] [place] [address] Dr. Maru Disla NEUT # 21.8 103/ul Critically high 1.4-6.5 [facility] Comment on above: Performed By: #### M ALBR #### [facility] [address] [place] [address] Dr. Maru Disla Neutrophils/100 WBC (Bld) 92.4 % Critically high 43.0-75.0 [facility] Comment on above: Performed By: #### M ALBR #### [facility] [address] [place] [address] Dr. Maru Disla Platelet mean volume (Bld) [Entitic vol] 10.4 fL Normal 9.5-13.5 [facility] Comment on above: Performed By: #### M ALBR #### [facility] [address] [place] [address] Dr. Maru Disla PLT 335 103/ul Normal 150-450 [facility] Comment on above: Performed By: #### M ALBR #### [facility] [address] [place] [address] Dr. Maru Disla RBC 5.72 106/ul Critically high 4.20-5.40 [facility] Comment on above: Performed By: #### M ALBR #### [facility] [address] [address] [address] Maru Disla WBC 23.5 103/ul Critically high 4.0-11.0 [facility] Comment on above: Performed By: #### M ALBR #### [facility] [address] [address] [address] Maru Disla POINT OF CARE GLUCOSEon Glucose [Mass/Vol] 275 mg/dL Critically high [facility]106 [facility] Comment on above: Performed By: #### P OCGLUC #### [facility] [address] [address] [address] Maru Disla Glucose [Mass/Vol] 161 mg/dL Critically high [address] [place] [address] Comment on above: Performed By: #### B MP #### [facility] [address] [address] [address] Maru Disla Glucose [Mass/Vol] 140 mg/dL Critically high [address] [place] [address] Comment on above: Performed By: #### P OCGLUC #### [facility] [address] [address] [address] Maru Disla Glucose [Mass/Vol] 219 mg/dL Critically high [address] [place] [address] Comment on above: Performed By: #### P OCGLUC #### [facility] [address] [address] [address] Maru Disla PROF CHEM 8 (BAS METB)on Anion gap [Moles/Vol] 14.0 mmol/L Normal [facility] Comment on above: Performed By: #### M ALBR #### [facility] [address] [address] [address] Maru Disla Calcium [Mass/Vol] 9.3 mg/dL Normal 8.5-10.1 [facility] Comment on above: Performed By: #### M ALBR #### [facility] [address] [address] [address] Maru Disla Chloride [Moles/Vol] 98 mmol/L Normal 98-107 [facility] Comment on above: Performed By: #### M ALBR #### [facility] [address] [address] [address] Maru Disla CO2 [Moles/Vol] 30.5 mmol/L Normal 21.0-32.0 [facility] Comment on above: Performed By: #### M ALBR #### [facility] [address] [address] [address] Maru Disla Creatinine [Mass/Vol] 1.09 mg/dL Critically high 0.55-1.02 [facility] Comment on above: Performed By: #### M ALBR #### [facility] [address] [place] [address] Dr. Maru Disla EGFR-AF NEPALESE >60 Normal >=60 [facility] Comment on above: Performed By: #### M ALBR #### [facility] [address] [address] [address] Maru Disla EGFR-NON AF NEPALESE 51 mL/min/1.73m2 Critically low >=60 [facility] Comment on above: Performed By: #### M ALBR #### [facility] [address] [place] [address] Dr. Maru Disla Glucose [Mass/Vol] 242 mg/dL Critically high 74-106 [facility] Comment on above: Performed By: #### M ALBR #### [facility] [address] [address] [address] Maru Disla Potassium [Moles/Vol] 3.5 mmol/L Normal 3.5-5.1 [facility] Comment on above: Performed By: #### M ALBR #### [facility] [address] [address] [address] Maru Disla Sodium [Moles/Vol] 139 mmol/L Normal 136-145 [facility] Comment on above: Performed By: #### M ALBR #### [facility] [address] [address] [address] Maru Disla Urea nitrogen [Mass/Vol] 32.0 mg/dL Critically high 7.0-18.0 [facility] Comment on above: Performed By: #### M ALBR #### [facility] [address] [place] [address] Dr. Maru Disla Urea nitrogen/Creatinine [Mass ratio] 29.4 mg/mg Normal [facility] Comment on above: Performed By: #### M ALBR #### [facility] [address] [place] [address] Dr. Maru Disla CBC AUTO DIFFon 04-07-2022 BASO # 0.0 103/ul Normal 0.0-0.1 [facility] Comment on above: Performed By: #### P OCGLUC #### [facility] [address] [place] [address] Dr. Maru Disla Basophils/100 WBC (Bld) 0.2 % Normal 0.2-2.0 [facility] Comment on above: Performed By: #### P OCGLUC #### [facility] [address] [place] [address] Dr. Maru Disla EO # 0.0 103/ul Normal 0.0-0.7 [facility] Comment on above: Performed By: #### P OCGLUC #### [facility] [address] [place] [address] Dr. Maru Disla Eosinophils/100 WBC (Bld) 0.0 % Critically low 0.9-7.0 [facility] Comment on above: Performed By: #### P OCGLUC #### [facility] [address] [place] [address] Dr. Maru Disla Erythrocyte distribution width (RBC) [Ratio] 13.6 % Normal 11.0-15.0 [facility] Comment on above: Performed By: #### P OCGLUC #### [facility] [address] [place] [address] Dr. Maru Disla Hematocrit (Bld) [Volume fraction] 48.1 % Critically high 36.0-48.0 [facility] Comment on above: Performed By: #### P OCGLUC #### [facility] [address] [place] [address] Dr. Maru Disla Hemoglobin (Bld) [Mass/Vol] 14.7 g/dL Normal 12.0-16.0 [facility] Comment on above: Performed By: #### P OCGLUC #### [facility] [address] [address] [address] Maru Disla IG # 0.16 10e3/ul Critically high 0.00-0.03 [facility] Comment on above: Performed By: #### P OCGLUC #### [facility] [address] [address] [address] Maru Disla IG % 0.6 % Critically high 0.0-0.5 [facility] Comment on above: Performed By: #### P OCGLUC #### [facility] [address] [place] [address] Dr. Maru Disla LYMPH # 1.0 103/ul Critically low 1.2-3.8 [facility] Comment on above: Performed By: #### P OCGLUC #### [facility] [address] [place] [address] Dr. Maru Disla Lymphocytes/100 WBC (Bld) 4.1 % Critically low 20.5-60.0 [facility] Comment on above: Performed By: #### P OCGLUC #### [facility] [address] [place] [address] Dr. Maru Disla MANUAL DIFF REQ NO Normal [facility] Comment on above: Performed By: #### P OCGLUC #### [facility] [address] [place] [address] Dr. Maru Disla MCH (RBC) [Entitic mass] 29.4 pg Normal 26.7-34.0 [facility] Comment on above: Performed By: #### P OCGLUC #### [facility] [address] [place] [address] Dr. Maru Disla MCHC (RBC) [Mass/Vol] 30.6 g/dL Normal 29.9-35.2 [facility] Comment on above: Performed By: #### P OCGLUC #### [facility] [address] [place] [address] Dr. Maru Disla MCV (RBC) [Entitic vol] 96.2 fL Normal 81.0-99.0 [facility] Comment on above: Performed By: #### P OCGLUC #### [facility] [address] [place] [address] Dr. Maru Disla MONO # 0.8 103/ul Normal 0.3-0.8 [facility] Comment on above: Performed By: #### P OCGLUC #### [facility] [address] [place] [address] Dr. Maru Disla Monocytes/100 WBC (Bld) 3.2 % Normal 1.7-12.0 [facility] Comment on above: Performed By: #### P OCGLUC #### [facility] [address] [place] [address] Dr. Maru Disla NEUT # 23.1 103/ul Critically high 1.4-6.5 [facility] Comment on above: Performed By: #### P OCGLUC #### [facility] [address] [place] [address] Dr. Maru Disla Neutrophils/100 WBC (Bld) 91.9 % Critically high 43.0-75.0 [facility] Comment on above: Performed By: #### P OCGLUC #### [facility] [address] [place] [address] Dr. Maru Disla Platelet mean volume (Bld) [Entitic vol] 10.5 fL Normal 9.5-13.5 [facility] Comment on above: Performed By: #### P OCGLUC #### [facility] [address] [place] [address] Dr. Maru Disla PLT 300 103/ul Normal 150-450 [facility] Comment on above: Performed By: #### P OCGLUC #### [facility] [address] [place] [address] Dr. Maru Disla RBC 5.00 106/ul Normal 4.20-5.40 [facility] Comment on above: Performed By: #### P OCGLUC #### [facility] [address] [place] [address] Dr. Maru Disla WBC 25.1 103/ul Critically high 4.0-11.0 [facility] Comment on above: Performed By: #### P OCGLUC #### [facility] [address] [place] [address] Dr. Maru Disla POINT OF CARE GLUCOSEon Glucose [Mass/Vol] 247 mg/dL Critically high 74-106 [facility] Comment on above: Performed By: #### B MP #### [facility] [address] [address] [address] Maru Disla Glucose [Mass/Vol] 182 mg/dL Critically high 74-106 [facility] Comment on above: Performed By: #### A BG #### [facility] [address] [place] [address] Dr. Maru Disla Glucose [Mass/Vol] 177 mg/dL Critically high -106 [facility] Comment on above: Performed By: #### P OCGLUC #### [facility] [address] [place] [address] Dr. Maru Disla Glucose [Mass/Vol] 191 mg/dL Critically high 74-106 [facility] Comment on above: Performed By: #### P OCGLUC #### [facility] [address] [place] [address] Dr. Maru Disla PROF CHEM 8 (BAS METB)on Anion gap [Moles/Vol] 11.4 mmol/L Normal [facility] Comment on above: Performed By: #### M ALBR #### [facility] [address] [place] [address] Dr. Maru Disla Calcium [Mass/Vol] 8.9 mg/dL Normal 8.5-10.1 [facility] Comment on above: Performed By: #### M ALBR #### [facility] [address] [place] [address] Dr. Maru Disla Chloride [Moles/Vol] 108 mmol/L Critically high 98-107 [facility] Comment on above: Performed By: #### M ALBR #### [facility] [address] [place] [address] Dr. Maru Disla CO2 [Moles/Vol] 27.9 mmol/L Normal 21.0-32.0 [facility] Comment on above: Performed By: #### M ALBR #### [facility] [address] [place] [address] Dr. Maru Disla Creatinine [Mass/Vol] 0.84 mg/dL Normal 0.55-1.02 [facility] Comment on above: Performed By: #### M ALBR #### [facility] [address] [address] [address] Maru Disla EGFR-AF NEPALESE >60 Normal >=60 [facility] Comment on above: Performed By: #### M ALBR #### [facility] [address] [place] [address] Dr. Maru Disla EGFR-NON AF NEPALESE >60 Normal >=60 [facility] Comment on above: Performed By: #### M ALBR #### [facility] [address] [place] [address] Dr. Maru Disla Glucose [Mass/Vol] 202 mg/dL Critically high 74-106 [facility] Comment on above: Performed By: #### M ALBR #### [facility] [address] [place] [address] Dr. Maru Disla Potassium [Moles/Vol] 4.3 mmol/L Normal 3.5-5.1 [facility] Comment on above: Performed By: #### M ALBR #### [facility] [address] [place] [address] Dr. Maru Disla Sodium [Moles/Vol] 143 mmol/L Normal 136-145 [facility] Comment on above: Performed By: #### M ALBR #### [facility] [address] [place] [address] Dr. Maru Disla Urea nitrogen [Mass/Vol] 26.0 mg/dL Critically high 7.0-18.0 [facility] Comment on above: Performed By: #### M ALBR #### [facility] [address] [place] [address] Dr. Maru Disla Urea nitrogen/Creatinine [Mass ratio] 31.0 mg/mg Normal [facility] Comment on above: Performed By: #### M ALBR #### [facility] [address] [place] [address] Dr. Maru Disla CBC AUTO DIFFon 04-06-2022 BASO # 0.0 103/ul Normal 0.0-0.1 [facility] Comment on above: Performed By: #### B MP #### [facility] [address] [place] [address] Dr. Maru Disla Basophils/100 WBC (Bld) 0.1 % Critically low 0.2-2.0 [facility] Comment on above: Performed By: #### B MP #### [facility] [address] [place] [address] Dr. Maru Disla EO # 0.0 103/ul Normal 0.0-0.7 [facility] Comment on above: Performed By: #### B MP #### [facility] [address] [place] [address] Dr. Maru Disla Eosinophils/100 WBC (Bld) 0.1 % Critically low 0.9-7.0 [facility] Comment on above: Performed By: #### B MP #### [facility] [address] [place] [address] Dr. Maru iDsla Erythrocyte distribution width (RBC) [Ratio] 13.4 % Normal 11.0-15.0 [facility] Comment on above: Performed By: #### B MP #### [facility] [address] [place] [address] Dr. Maru Disla Hematocrit (Bld) [Volume fraction] 48.5 % Critically high 36.0-48.0 [facility] Comment on above: Performed By: #### B MP #### [facility] [address] [place] [address] Dr. Maru Disla Hemoglobin (Bld) [Mass/Vol] 15.5 g/dL Normal 12.0-16.0 [facility] Comment on above: Performed By: #### B MP #### [facility] [address] [place] [address] Dr. Maru Disla IG # 0.09 10e3/ul Critically high 0.00-0.03 [facility] Comment on above: Performed By: #### B MP #### [facility] [address] [place] [address] Dr. Maru Disla IG % 0.5 % Normal 0.0-0.5 [facility] Comment on above: Performed By: #### B MP #### [facility] [address] [place] [address] Dr. Maru Disla LYMPH # 0.9 103/ul Critically low 1.2-3.8 [facility] Comment on above: Performed By: #### B MP #### [facility] [address] [place] [address] Dr. Maru Disla Lymphocytes/100 WBC (Bld) 4.5 % Critically low 20.5-60.0 [facility] Comment on above: Performed By: #### B MP #### [facility] [address] [place] [address] Dr. Maru Disla MANUAL DIFF REQ NO Normal [facility] Comment on above: Performed By: #### B MP #### [facility] [address] [place] [address] Dr. Maru Disla MCH (RBC) [Entitic mass] 30.0 pg Normal 26.7-34.0 [facility] Comment on above: Performed By: #### B MP #### [facility] [address] [place] [address] Dr. Maru Disla MCHC (RBC) [Mass/Vol] 32.0 g/dL Normal 29.9-35.2 [facility] Comment on above: Performed By: #### B MP #### [facility] [address] [place] [address] Dr. Maru Disla MCV (RBC) [Entitic vol] 93.8 fL Normal 81.0-99.0 [facility] Comment on above: Performed By: #### B MP #### [facility] [address] [place] [address] Dr. Maru Disla MONO # 0.7 103/ul Normal 0.3-0.8 [facility] Comment on above: Performed By: #### B MP #### [facility] [address] [place] [address] Dr. Maru Disla Monocytes/100 WBC (Bld) 3.5 % Normal 1.7-12.0 [facility] Comment on above: Performed By: #### B MP #### [facility] [address] [place] [address] Dr. Maru Disla NEUT # 18.2 103/ul Critically high 1.4-6.5 [facility] Comment on above: Performed By: #### B MP #### [facility] [address] [place] [address] Dr. Maru Disla Neutrophils/100 WBC (Bld) 91.3 % Critically high 43.0-75.0 [facility] Comment on above: Performed By: #### B MP #### [facility] [address] [place] [address] Dr. Mrau Disla Platelet mean volume (Bld) [Entitic vol] 11.2 fL Normal 9.5-13.5 [facility] Comment on above: Performed By: #### B MP #### [facility] [address] [place] [address] Dr. Maru Disla PLT 232 103/ul Normal 150-450 [facility] Comment on above: Performed By: #### B MP #### [facility] [address] [place] [address] Dr. Maru Disla RBC 5.17 106/ul Normal 4.20-5.40 [facility] Comment on above: Performed By: #### B MP #### [facility] [address] [place] [address] Dr. Maru Disla WBC 19.9 103/ul Critically high 4.0-11.0 [facility] Comment on above: Performed By: #### B MP #### [facility] [address] [place] [address] Dr. Maru Disla POINT OF CARE GLUCOSEon 11-0 Glucose [Mass/Vol] 199 mg/dL Critically high 74-106 [facility] Comment on above: Performed By: #### P OCGLUC #### [facility] [address] [address] [address] Maru Disla Glucose [Mass/Vol] 109 mg/dL Critically high [address] [place] [address] Comment on above: Performed By: #### A BG #### [facility] [address] [address] [address] Maru Disla Glucose [Mass/Vol] 253 mg/dL Critically high [address] [place] [address] Comment on above: Performed By: #### P OCGLUC #### [facility] [address] [address] [address] Maru Disla Glucose [Mass/Vol] 194 mg/dL Critically high [address] [place] [address] Comment on above: Performed By: #### B MP #### [facility] [address] [address] [address] Maru Disla PROF CHEM 8 (BAS METB)on Anion gap [Moles/Vol] 11.2 mmol/L Normal [facility] Comment on above: Performed By: #### B MP #### [facility] [address] [address] [address] Maru Disla Calcium [Mass/Vol] 8.8 mg/dL Normal 8.5-10.1 [facility] Comment on above: Performed By: #### B MP #### [facility] [address] [address] [address] Maru Disla Chloride [Moles/Vol] 105 mmol/L Normal 98-107 [facility] Comment on above: Performed By: #### B MP #### [facility] [address] [address] [address] Maru Disla CO2 [Moles/Vol] 26.8 mmol/L Normal 21.0-32.0 [facility] Comment on above: Performed By: #### B MP #### [facility] [address] [address] [address] Maru Disla Creatinine [Mass/Vol] 0.66 mg/dL Normal 0.55-1.02 [facility] Comment on above: Performed By: #### B MP #### [facility] [address] [address] [address] Maru Disla EGFR-AF NEPALESE >60 Normal >=60 [facility] Comment on above: Performed By: #### B MP #### [facility] [address] [address] [address] Maru Disla EGFR-NON AF NEPALESE >60 Normal >=60 [facility] Comment on above: Performed By: #### B MP #### [facility] [address] [address] [address] Maru Disla Glucose [Mass/Vol] 191 mg/dL Critically high 74-106 [facility] Comment on above: Performed By: #### B MP #### [facility] [address] [address] [address] Maru Disla Potassium [Moles/Vol] 5.0 mmol/L Normal 3.5-5.1 [facility] Comment on above: Performed By: #### B MP #### [facility] [address] [address] [address] Maru Disla Sodium [Moles/Vol] 138 mmol/L Normal 136-145 [facility] Comment on above: Performed By: #### B MP #### [facility] [address] [address] [address] Maru Disla Urea nitrogen [Mass/Vol] 21.0 mg/dL Critically high 7.0-18.0 [facility] Comment on above: Performed By: #### B MP #### [facility] [address] [address] [address] Maru Disla Urea nitrogen/Creatinine [Mass ratio] 31.8 mg/mg Normal [facility] Comment on above: Performed By: #### B MP #### [facility] [address] [address] [address] Maru Disla XR CHEST 2 Von [...] by: CORINE ANGELA Date: 2022-04-06 07:[address] [facility] BLOOD GASES BTYon 04-05-2022 02 MODE NASAL CANNULA Normal [facility] Comment on above: Performed By: #### A BG #### [facility] [address] [place] [address] Dr. Maru Disla ALLENS TEST Positive Normal [facility] Comment on above: Performed By: #### A BG #### [facility] [address] [place] [address] Dr. Maru Disla Base excess Calc (Bld) [Moles/Vol] -1.6000 mmol/L Normal -2.0-2.0 [facility] Comment on above: Performed By: #### A BG #### [facility] [address] [address] [address] Maru Disla BIPAP PRESSURE Normal [facility] Comment on above: Performed By: #### A BG #### [facility] [address] [place] [address] Dr. Maru Disla CPAP Normal [facility] Comment on above: Performed By: #### A BG #### [facility] [address] [place] [address] Dr. Maru Disla FIO2 [address] [facility] Comment on above: Performed By: #### A BG #### [facility] [address] [place] [address] Dr. Maru Disla HCO3 (Bld) [Moles/Vol] 24.0 mmol/L Normal 22.0-26.0 [facility] Comment on above: Performed By: #### A BG #### [facility] [address] [place] [address] Dr. Maru Disla LPM [address] [facility] Comment on above: Performed By: #### A BG #### [facility] [address] [address] [address] Maru Disla MINUTE VOLUME Normal [facility] Comment on above: Performed By: #### A BG #### [facility] [address] [place] [address] Dr. Maru Disla Oxygen (Bld) [Partial pressure] 56.1 mm[Hg] Critically low 80.0-100.0 [facility] Comment on above: Performed By: #### A BG #### [facility] [address] [place] [address] Dr. Maru Disla Oxygen saturation in Blood 89.9 % Critically low 95.0-100.0 [facility] Comment on above: Performed By: #### A BG #### [facility] [address] [place] [address] Dr. Maru Disla PCO2 43.3 mmHg Normal 35.0-45.0 [facility] Comment on above: Performed By: #### A BG #### [facility] [address] [place] [address] Dr. Maru Disla PEEP [facility] Comment on above: Performed By: #### A BG #### [facility] [address] [place] [address] Dr. Maru Disla pH (Bld) 7.352 [pH] Normal 7.350-7.450 [facility] Comment on above: Performed By: #### A BG #### [facility] [address] [place] [address] Dr. Maru Disla PIP [facility] Comment on above: Performed By: #### A BG #### [facility] [address] [place] [address] Dr. Maru Disla PS [facility] Comment on above: Performed By: #### A BG #### [facility] [address] [place] [address] Dr. Maru Disla PUNCTURE SITE LR [facility] Comment on above: Performed By: #### A BG #### [facility] [address] [place] [address] Dr. Maru Disla RATE [facility] Comment on above: Performed By: #### A BG #### [facility] [address] [place] [address] Dr. Maru Disla VENT [facility] Comment on above: Performed By: #### A BG #### [facility] [address] [place] [address] Dr. Maru Disla [facility] Comment on above: Performed By: #### A BG #### [facility] [address] [place] [address] Dr. Maru Disla BNPon 04-05-2022 Natriuretic peptide B (Bld) [Mass/Vol] 471.0 pg/mL Normal <=900.0 [facility] Comment on above: Performed By: #### P OCGLUC #### [facility] [address] [place] [address] Dr. Maru Disla CBC AUTO DIFFon 04-05-2022 BASO # 0.0 103/ul Normal 0.0-0.1 [facility] Comment on above: Performed By: #### B MP #### [facility] [address] [place] [address] Dr. Maru Disla Basophils/100 WBC (Bld) 0.3 % Normal 0.2-2.0 [facility] Comment on above: Performed By: #### B MP #### [facility] [address] [place] [address] Dr. Maru Disla EO # 0.0 103/ul Normal 0.0-0.7 [facility] Comment on above: Performed By: #### B MP #### [facility] [address] [place] [address] Dr. Maru Disla Eosinophils/100 WBC (Bld) 0.0 % Critically low 0.9-7.0 [facility] Comment on above: Performed By: #### B MP #### [facility] [address] [place] [address] Dr. Maru Disla Erythrocyte distribution width (RBC) [Ratio] 13.2 % Normal 11.0-15.0 [facility] Comment on above: Performed By: #### B MP #### [facility] [address] [place] [address] Dr. Maru Disla Hematocrit (Bld) [Volume fraction] 52.3 % Critically high 36.0-48.0 [facility] Comment on above: Performed By: #### B MP #### [facility] [address] [place] [address] Dr. Maru Disla Hemoglobin (Bld) [Mass/Vol] 16.6 g/dL Critically high 12.0-16.0 [facility] Comment on above: Performed By: #### B MP #### [facility] [address] [place] [address] Dr. Maru Disla IG # 0.05 10e3/ul Critically high 0.00-0.03 [facility] Comment on above: Performed By: #### B MP #### [facility] [address] [place] [address] Dr. Maru Disla IG % 0.4 % Normal 0.0-0.5 [facility] Comment on above: Performed By: #### B MP #### [facility] [address] [place] [address] Dr. Maru Disla LYMPH # 1.5 103/ul Normal 1.2-3.8 [facility] Comment on above: Performed By: #### B MP #### [facility] [address] [place] [address] Dr. Maru Disla Lymphocytes/100 WBC (Bld) 10.7 % Critically low 20.5-60.0 [facility] Comment on above: Performed By: #### B MP #### [facility] [address] [place] [address] Dr. Maru Disla MANUAL DIFF REQ NO Normal [facility] Comment on above: Performed By: #### B MP #### [facility] [address] [place] [address] Dr. Maru Disla MCH (RBC) [Entitic mass] 29.7 pg Normal 26.7-34.0 [facility] Comment on above: Performed By: #### B MP #### [facility] [address] [address] [address] Maru Disla MCHC (RBC) [Mass/Vol] 31.7 g/dL Normal 29.9-35.2 [facility] Comment on above: Performed By: #### B MP #### [facility] [address] [address] [address] Maru Disla MCV (RBC) [Entitic vol] 93.6 fL Normal 81.0-99.0 [facility] Comment on above: Performed By: #### B MP #### [facility] [address] [address] [address] Maru Disla MONO # 1.5 103/ul Critically high 0.3-0.8 [facility] Comment on above: Performed By: #### B MP #### [facility] [address] [address] [address] Maru Disla Monocytes/100 WBC (Bld) 11.0 % Normal 1.7-12.0 [facility] Comment on above: Performed By: #### B MP #### [facility] [address] [address] [address] Maru Disla NEUT # 10.8 103/ul Critically high 1.4-6.5 [facility] Comment on above: Performed By: #### B MP #### [facility] [address] [address] [address] Maru Disla Neutrophils/100 WBC (Bld) 77.6 % Critically high 43.0-75.0 [facility] Comment on above: Performed By: #### B MP #### [facility] [address] [address] [address] Maru Disla Platelet mean volume (Bld) [Entitic vol] 10.1 fL Normal 9.5-13.5 [facility] Comment on above: Performed By: #### B MP #### [facility] [address] [address] [address] Maru Disla PLT 315 103/ul Normal 150-450 [facility] Comment on above: Performed By: #### B MP #### [facility] [address] [address] [address] Maru Disla RBC 5.59 106/ul Critically high 4.20-5.40 [facility] Comment on above: Performed By: #### B MP #### [facility] [address] [place] [address] Dr. Maru Disla WBC 13.9 103/ul Critically high 4.0-11.0 [facility] Comment on above: Performed By: #### B MP #### [facility] [address] [place] [address] Dr. Maru Disla CULTURE BLOODon 04-05-2022 Microscopic examination of blood, culture Culture Observations: NO GROWTH AT 5 DAYS. Normal [facility] Comment on above: Performed By: #### B MP #### [facility] [address] [place] [address] Dr. Maru Disla Covid-19 PCR ([facility])on SARS-CoV-2 (COVID-19) RNA NICOLETTE+probe Ql (Unsp spec) Not detected Normal NOT DETECTED [facility] Comment on above: Result Comment: When diagnostic [...] for this test is supported by the [employer] [place] of Health and Human Service's declaration that [...] used). Performed By: #### M ALBR #### [facility] [address] [place] [address] Dr. Maru Disla INFLUENZA A AND B AGon 04-05 INFLUENZA A AG Negative Normal NEGATIVE SEE COMMENT [facility] Comment on above: Performed By: #### P OCGLUC #### [facility] [address] [place] [address] Dr. Maru Dilsa INFLUENZA B AG Negative Normal NEGATIVE SEE COMMENT [facility] Comment on above: Performed By: #### P OCGLUC #### [facility] [address] [place] [address] Dr. Maru Disla INTERNAL CONTROLS Within Normal Limits Normal Wi thin Normal Limits [facility] Comment on above: Performed By: #### P OCGLUC #### [facility] [address] [place] [address] Dr. Maru Disla LACTATE/LACTIC ACIDon 2021 Lactate [Moles/Vol] 3.1 mmol/L Critically high 0.4-1.9 [facility] Comment on above: Performed By: #### L ACT #### [facility] [address] [place] [address] Dr. Maru Disla Lactate [Moles/Vol] 3.1 mmol/L Critically high 0.4-1.9 [facility] Comment on above: Performed By: #### B MP #### [facility] [address] [place] [address] Dr. Maru Disla POINT OF CARE GLUCOSEon Glucose [Mass/Vol] 290 mg/dL Critically high 74-106 [facility] Comment on above: Performed By: #### M ALBR #### [facility] [address] [place] [address] Dr. Maru Disla Glucose [Mass/Vol] 309 mg/dL Critically high 74-106 [facility] Comment on above: Performed By: #### A BG #### [facility] [address] [place] [address] Dr. Maru Disla Glucose [Mass/Vol] 289 mg/dL Critically high 74-106 [facility] Comment on above: Performed By: #### P OCGLUC #### [facility] [address] [place] [address] Dr. Maru Disla Glucose [Mass/Vol] 325 mg/dL Critically high 74-106 T [facility] Comment on above: Performed By: #### M ALBR #### [facility] [address] [address] [address] Maru Disla PROF 14(COMP METB)on 022 Albumin [Mass/Vol] 3.3 g/dL Critically low 3.4-5.0 [facility] Comment on above: Performed By: #### P OCGLUC #### [facility] [address] [place] [address] Dr. Maru Disla Albumin/Globulin [Mass ratio] 0.7 {ratio} Normal [facility] Comment on above: Performed By: #### P OCGLUC #### [facility] [address] [place] [address] Dr. Maru Disla ALP [Catalytic activity/Vol] 105 U/L Normal 46-116 [facility] Comment on above: Performed By: #### P OCGLUC #### [facility] [address] [place] [address] Dr. Maru Disla ALT [Catalytic activity/Vol] 15 U/L Normal 14-59 [facility] Comment on above: Performed By: #### P OCGLUC #### [facility] [address] [place] [address] Dr. Maru Disla Anion gap [Moles/Vol] 13.2 mmol/L Normal [facility] Comment on above: Performed By: #### P OCGLUC #### [facility] [address] [place] [address] Dr. Maru Disla AST [Catalytic activity/Vol] 12 U/L Critically low 15-37 [facility] Comment on above: Performed By: #### P OCGLUC #### [facility] [address] [place] [address] Dr. Maru Disla Bilirubin [Mass/Vol] 0.4 mg/dL Normal 0.2-1.0 [facility] Comment on above: Performed By: #### P OCGLUC #### [facility] [address] [place] [address] Dr. Maru Disla Calcium [Mass/Vol] 8.8 mg/dL Normal 8.5-10.1 [facility] Comment on above: Performed By: #### P OCGLUC #### [facility] [address] [address] [address] Maru Disla Chloride [Moles/Vol] 101 mmol/L Normal 98-107 [facility] Comment on above: Performed By: #### P OCGLUC #### [facility] [address] [address] [address] Maru Disla CO2 [Moles/Vol] 26.0 mmol/L Normal 21.0-32.0 [facility] Comment on above: Performed By: #### P OCGLUC #### [facility] [address] [place] [address] Dr. Maru Disla Creatinine [Mass/Vol] 1.03 mg/dL Critically high 0.55-1.02 [facility] Comment on above: Performed By: #### P OCGLUC #### [facility] [address] [place] [id number] Dr[address] Maru Disla EGFR-AF NEPALESE >60 Normal >=60 [facility] Comment on above: Performed By: #### P OCGLUC #### [facility] [address] [address] [address] Maru Disla EGFR-NON AF NEPALESE 54 mL/min/1.73m2 Critically low >=60 [facility] Comment on above: Performed By: #### P OCGLUC #### [facility] [address] [address] [address] Maru Disla Globulin (S) [Mass/Vol] 4.5 g/dL Normal [facility] Comment on above: Performed By: #### P OCGLUC #### [facility] [address] [place] [address] Dr. Maru Disla Glucose [Mass/Vol] 264 mg/dL Critically high 74-106 [facility] Comment on above: Performed By: #### P OCGLUC #### [facility] [address] [address] [address] Maru Disla Potassium [Moles/Vol] 4.2 mmol/L Normal 3.5-5.1 [facility] Comment on above: Performed By: #### P OCGLUC #### [facility] [address] [address] [address] Maru Disla Protein [Mass/Vol] 7.8 g/dL Normal 6.4-8.2 [facility] Comment on above: Performed By: #### P OCGLUC #### [facility] [address] [address] [address] Maru Disla Sodium [Moles/Vol] 136 mmol/L Normal 136-145 [facility] Comment on above: Performed By: #### P OCGLUC #### [facility] [address] [place] [address] Dr. Maru Disla Urea nitrogen [Mass/Vol] 14.0 mg/dL Normal 7.0-18.0 [facility] Comment on above: Performed By: #### P OCGLUC #### [facility] [address] [place] [address] Dr. Maru Disla Urea nitrogen/Creatinine [Mass ratio] 13.6 mg/mg Normal [facility] Comment on above: Performed By: #### P OCGLUC #### [facility] [address] [place] [address] Dr. Maru Disla TROPONIN, HIGH SENSITIVITYon 04-05-2022 HSTROP 10.5 pg/mL Normal 4.0-51.3 [facility] Comment on above: Result Comment: CUT- OFF POINTS HAVE BEEN ESTABLISHED BASED ON THE FOURTH UNIVERSAL DEFINITIONS OF MYOCARDIAL INFARCTION. THE UPPER REFERENCE LIMIT (URL) OF TROPONIN, DEFINED THE 99TH PERCENTILE OF cTnI DISTRIBUTION IN A REFERENCE POPULATION, HAS BEEN CONFIRMED THE DECISION THRESHOLD FOR NC DIAGNOSIS. Performed By: #### A BG #### [facility] [address] [place] [address] Dr. Maru Disla XR CHEST 1 Von [...] YECENIA MONTERO Date: 2022-04-05 06:[address] [facility] Vital Signs Date Time Vital Sign Value Performing Clinician Bhargav sherman 07-18-2023 14:27-0500 Body height 167.6 cm Maira Victor Manuel [employer] Work Phone: [facility] 07-18-2023 14:27-0500 Body mass index (BMI) [Ratio] 38.29 kg/m2 Maira Kenadutchz [employer] Work Phone: [facility] 07-18-2023 14:27-0500 Body temperature 98.01 [degF] Maira aFtouz [employer] Work Phone: [facility] 07-18-2023 14:27-0500 Body weight 107.59 kg Mairasunny Nettlesvaz [employer] Work Phone: [facility] 07-18-2023 14:27-0500 Diastolic blood pressure 78 mm[Hg] Maira Kenahvaz [employer] Work Phone: [facility] 07-18-2023 14:27-0500 Heart rate 79 /min Maira Kenahholz [employer] Work Phone: [facility] 07-18-2023 14:27-0500 Respiratory rate 19 /min Maira Yoonvaz [employer] Work Phone: [facility] 07-18-2023 14:27-0500 SaO2% (BldA) [Mass fraction] 97 % Maira Yoonvaz [employer] Work Phone: [facility] 07-18-2023 14:27-0500 Systolic blood pressure 142 mm[Hg] Maira Fatouz [employer] Work Phone: [facility] Healthcare Encounters Encounter Date Encounter Type Care Provider Facility Start: 07-18-2023 End: 07-18-2023 ambulatory MAIRA VICTOR MANUEL Not Available Start: 07-18-2023 End: 07-18-2023 Office outpatient visit 25 minutes Maira Rush [employer] Work Phone: [facility] Comment on above: Primary hypertension ([facility]) (Primary Dx); Type 2 diabetes mellitus with diabetic neuropathy, with long-term current use of insulin ([facility]); Gastroesophageal reflux disease, unspecified whether esophagitis present; Vitamin D deficiency; Type 2 diabetes mellitus with complication, without long-term current use of insulin ([facility]); Mixed hyperlipidemia ([facility]); Encounter for screening mammogram for malignant neoplasm of breast; SANTO (obstructive sleep apnea); COPD mixed type ([facility]); Anxiety and depression ([facility]); COVID; Open wound; Morbid obesity with body mass index (BMI) of 40.0 to 49.9 ([facility]) Start: 07-18-2023 Bamboo flowsheet Maira Rush [employer] Work Phone: [facility] Start: 07-18-2023 [email or web address] flowsheet Maira Rush [employer] Work Phone: [facility] Start: 01-08-2023 End: 01-08-2023 ambulatory LORENZO [facility] Start: 10-02-2022 End: 10-03-2022 ambulatory DMITRY RUSH Facility:[facility] Start: 08-09-2022 End: 08-10-2022 ambulatory DMITRY RUSH Facility:[facility] Start: 07-02-2022 End: 07-02-2022 ambulatory ADRIANE SIL [facility] Start: 06-21-2022 End: 06-22-[address] CORINE ANGELA Facility:[facility] Start: 06-20-2022 End: 06-21-2022 ambulatory DMITRY MAIRA VICTOR MANUEL Facility:[facility] Start: 06-07-2022 End: 06-07-2022 ambulatory Patrick Hart Facility:[facility] Start: 04-05-2022 End: 04-09-2022 Evaluation and management of inpatient DR TERI BLOCK . Facility:[facility] Start: 11-23-2021 End: 11-23-2021 ambulatory DREDGE MASTER MAIRA VICTOR MANUEL Facility:[facility] Start: 09-30-2018 End: 10-01-2018 Patient encounter procedure DEFAULT PHYSICIAN Facility:[facility] Start: 09-15-2018 End: 09-16-2018 Patient encounter procedure DEFAULT PHYSICIAN Facility:[facility] Procedures Date Procedure Procedure Detail Performing Clinician Start: 06-19-2022 Mammography Maira santiago [employer] Work Phone: Start: 02-14-2015 Colonoscopy Maira santiago [employer] Work Phone: Plan of Treatment Date Care Activity Detail Author Start: 02-14-2025 Screening for malign ant neoplasm of colon [facility] Start: 10-16-2023 End: 10-16-2023 Patient encounter procedure 10/16/2023 9:20 AM EDT Office Visit [facility] [address] [place] [id number] Maira Rush NP [address] [place] [phone] [facility] Start: 08-16-2023 End: 09-15-2024 MG Breast - bilateral Screening Bilateral screening mammogram Imaging Routine Encounter for screening mammogram for malignant neoplasm of breast Expected: 08/16/2023 (Approximate), Expires: 09/15/2024 [facility] Comment on above: Expected: 08/16/2023 (Approximate), Expires: 09/15/2024 Start: 08-10-2023 Urine screening for protein Diabetes: Urine Protein Screening [facility] Start: 07-18-2023 End: 07-18-2023 Patient encounter procedure 07/18/2023 2:20 PM EST Office Visit [facility] [address] [place] [phone] Maira Rush NP [address] [place] [phone] Type 2 diabetes mellitus with diabetic neuropathy, with long-term current use of insulin (CMS/HCC) (Primary Dx); Primary hypertension (CMS/HCC); Gastroesophageal reflux disease, unspecified whether esophagitis present; Vitamin D deficiency; Type 2 diabetes mellitus with complication, without long-term current use of insulin ([facility]); Mixed hyperlipidemia ([facility]/HCC); Encounter for screening mammogram for malignant neoplasm of breast [facility] Comment on above: Type 2 diabetes gayatri itus with diabetic neuropathy, with long- term current use of insulin ([facility]) (Primary Dx); Primary hypertension ([facility]); Gastroesophageal reflux disease, unspecified whether esophagitis present; Vitamin D deficiency; Type 2 diabetes mellitus with complication, without long-term current use of insulin ([facility]/HCC); Mixed hyperlipidemia (CMS/HCC); Encounter for screening mammogram for malignant neoplasm of breast Start: 07-18-2023 End: 07-18-2024 25-hydroxyvitamin D3 [Mass/volume] in Serum or Plasma Vitamin D 25 hydroxy Lab Routine Vitamin D deficiency Expected: 07/18/2023 (Approximate), Expires: 07/18/2024 [facility] Comment on above: Expected: 07/18/2023 (Approximate), Expires: 07/18/2024 Start: 07-18-2023 End: 07-18-2024 CBC W Auto Differential panel - Blood CBC and differential Lab Routine Gastroesophageal reflux disease, unspecified whether esophagitis present Expected: 07/18/2023 (Approximate), Expires: 07/18/2024 [facility] Work Phone: Comment on above: Expected: 07/18/2023 (Approximate), Expires: 07/18/2024 Start: 07-18-2023 End: 07-18-2024 Comprehensive metabolic 2000 panel - Serum or Plasma Comprehensive metabolic panel Lab Routine Primary hypertension ([facility]) Type 2 diabetes mellitus with complication, without long-term current use of insulin ([facility]) Mixed hyperlipidemia ([facility]/HCC) Expected: 07/18/2023 (Approximate), Expires: 07/18/2024 [facility] Comment on above: Expected: 07/18/2023 (Approximate), Expires: 07/18/2024 Start: 07-18-2023 End: 07-18-2024 Hemoglobin A1c/Hemoglobin.total in Blood Hemoglobin A1c Lab Routine Type 2 diabetes mellitus with complication, without long-term current use of insulin ([facility]/HCC) Expected: 07/18/2023 (Approximate), Expires: 07/18/2024 [facility] Comment on above: Expected: 07/18/2023 (Approximate), Expires: 07/18/2024 Start: 07-18-2023 End: 07-18-2024 Lipid 1996 panel - Serum or Plasma Lipid panel Lab Routine Mixed hyperlipidemia ([facility]) Expected: 07/18/2023 (Approximate), Expires: 07/18/2024 [facility] Comment on above: Expected: 07/18/2023 (Approximate), Expires: 07/18/2024 Start: 07-18-2023 End: 07-18-2024 Microalbumin/Creatinine panel in random Urine Microalbumin / creatinine, urine ratio Lab Routine Type 2 diabetes mellitus with complication, without long-term current use of insulin ([facility]) Expected: 07/18/2023 (Approximate), Expires: 07/18/2024 [facility] Comment on above: Expected: 07/18/2023 (Approximate), Expires: 07/18/2024 Start: 07-18-2023 End: 07-18-2024 Urinalysis complete panel - Urine Urinalysis with reflex microscopic (clean catch) Lab Routine Type 2 diabetes mellitus with complication, without long-term current use of insulin ([facility]) Expected: 07/18/2023 (Approximate), Expires: 07/18/2024 [facility] Comment on above: Expected: 07/18/2023 (Approximate), Expires: 07/18/2024 Start: 06-19-2023 Screening for malign ant neoplasm of breast Mammogram [facility] Start: 02-01-2023 Influenza vaccination Influenza Vacc ine (#1) [facility] Start: 01-07-2019 Hemoglobin A1c measurement Diabetes: Hemoglobin A1C [facility] Start: 1989 Screening for malign ant neoplasm of cervix [facility] Start: 1980 Screening for malign ant neoplasm of cervix Pap Smear [facility] Start: 1969 Glaucoma screening Diabetes: R etinopathy Screening [facility] Start: 1959 Screening for malign ant neoplasm of colon [facility] Immunizations Immunization Date Immunization Notes Care Provider Fa cili 04-05-2022 influenza, injectabl e, quadrivalent, preservative free Maira Aichholz [employer] Work Phone: [facility] 04-05-2022 pneumococcal polysaccharide vaccine, 23 valent Maira Yoonholz [employer] Work Phone: [facility] 04-05-2022 influenza virus vacc ine, unspecified formulation Maira Yoonholz [employer] Work Phone: [facility] 11-23-2021 diphtheria, tetanus toxoids and pertussis vaccine Maira Aichholz [employer] Work Phone: [facility] 03-24-2020 tetanus toxoid, redu joaquin diphtheria toxoid, and acellular pertussis vaccine, adsorbed Maira Aichholz [employer] Work Phone: [facility] 03-25-2017 Influenza, injectabl e, Madin [place] Canine Kidney, preservative free, quadrivalent Maira Aichholz [employer] Work Phone: [facility] Payers Date Payer Category Payer Medicaid [employer] [place] [employer] [id number] 2017-Present [address] [place] [address] [id number] 1959 Unknown [id number] 1959 Unknown [id number] 1959 Unknown [id number] 1959 Unknown [id number] 1959 Unknown [id number] 1959 Unknown [id number] 1959 Unknown [id number] 1959 Unknown [id number] 1959 Unknown [id number] 1959 Unknown [id number] 1959 Unknown [id number] Unknown Social History Date Type Detail Facility Start: 07-15-2023 Tobacco smoking status CAIS Ex-smoke r [facility] Start: 06-03-1982 End: 04-03-2022 History of tobacco use Current smoker [facility] Start: 06-03-1982 End: 04-03-2022 History of tobacco use Cigarette Smoker [facility] Start: 07-15-2023 End: 07-18-2023 Cigarettes smoked current (pack per day) - Reported 0.5 [facility] Start: 07-18-2023 Alcohol intake Ex-drinker (finding) [facility] Start: 06-29-2023 End: 07-18-2023 Tobacco use panel [facility] Start: 07-15-2023 Alcohol Comment coffee 1-2 cups per day [facility] Start: 1960 Sex Assigned At Not on file N [facility] Medical Equipment Procedure Code Equipment Code Equipment Origin al Text Equipment Identifier Dates Inject 1 each un steven the skin if needed [id number] Start: 06-24-2023 History of Present illness Narrative 07-18-2023 Maira Rush NP - 07/18/2023 3:23 PM Nimco Rush NP - 07/18/2023 3:22 PM Nimco Rush NP - 07/18/2023 3:21 PM Nimco Rush NP - 07/18/2023 3:21 PM EST Note Date & Type Note Facility 07-18-2023 History of Presen t illness Narrative Associated Problem(s): Open wound No s/s infection, recommend using diaper barrier ointment on this Associated Problem(s): COVID Recent hospitalization for this, appears to be doing quite well Associated Problem(s): Anxiety and depression (CMS/HCC) Stable at this time Associated Problem(s): Primary hypertension (CMS/HCC) stable Associated Problem(s): COPD mixed type (CMS/HCC) Continues to smoke, refused to quit Cont current meds at this time Associated Problem(s): SANTO (obstructive sleep apnea) Non compliance , has been instructed in the past on importance of need to wear PAP Not wearing risk stroke, NC, Associated Problem(s): Type 2 diabetes mellitus with diabetic neuropathy, with long-term current use of insulin (CMS/HCC) Non compliant with follow up with Endo Explained to her her persistent non compliance will lead to increase risk stroke, NC, blindness, amputation, as well as CKD Instructed her to contact Dr Gilman's office Check blood sugars daily, notify if <70 or >200. Take medications (pills or insulin) as directed. Monitor for s/s of hypoglycemia (sweaty, dizziness, nausea, vomiting, or shakiness). Watch for increase in thirst, urination, or appetite. Inspect feet frequently monitoring for open wounds , and also recommend yearly eye exam. Pt should attempt to remain as physically active as chronic conditions allow, as well as trying to follow a diet low in carbohydrates, and simple sugars. Sore above tailbone/lower back Was in the hospital for SOB for two days tested positive for covid Images from the original note were not included. Roddy Dior is a 63 y.o. female presents with chief complaint of No chief complaint on file. HPI: Here for hospital fu for covid, this was approx 3 weeks or so ago Breathing: +wheeze at times, non productive cough , wears oxygen at home, not wearing in office today Anxiety Presents for follow-up visit. Symptoms include nervous/anxious behavior and shortness of breath. Patient reports no chest pain, depressed mood, dizziness, excessive worry, irritability, muscle tension, nausea, palpitations, panic, restlessness or suicidal ideas. Symptoms occur occasionally. The severity of symptoms is mild. Compliance with medications is 76-100%. Diabetes She presents for her follow-up diabetic visit. She has type 2 diabetes mellitus. Onset time: years. Her disease course has been worsening. Hypoglycemia symptoms include nervousness/anxiousness. Pertinent negatives for hypoglycemia include no dizziness, headaches, seizures or tremors. Associated symptoms include polydipsia, polyphagia and polyuria. Pertinent negatives for diabetes include no chest pain, no foot paresthesias and no visual change. There are no hypoglycemic complications. Symptoms are worsening. Risk factors for coronary artery disease include diabetes mellitus, dyslipidemia, obesity, hypertension, sedentary lifestyle and tobacco exposure. Current diabetic treatment includes insulin injections. She is compliant with treatment some of the time. When asked about meal planning, she reported none. She never participates in exercise. Her overall blood glucose range is >200 mg/dl. An ELIANA inhibitor/angiotensin II receptor matthew is being taken. Eye exam is not current. SUBJECTIVE: MEDICATIONS: Current Outpatient Medications Medication Instructions Alcohol Swabs (Easy Touch Alcohol Prep Medium) 70 % pads 1 each, Topical, 4 times daily carvedilol (Coreg) 12.5 MG tablet 1 tablet, Oral, 2 times daily with meals furosemide (Lasix) 20 MG tablet 1 tablet, Oral, Daily Jardiance 25 MG 1 tablet, Oral, Daily Lantus SoloStar 60 Units, Subcutaneous, Nightly losartan (COZAAR) 100 mg, Oral, Daily pantoprazole (ProtoNix) 40 MG EC tablet 1 tablet, Oral, Daily PARoxetine (PAXIL) 10 mg, Oral, Daily potassium chloride ER (Micro-K) 10 MEQ ER capsule 1 capsule, Oral, Daily rosuvastatin (Crestor) 5 MG tablet 1 tablet, Oral, Daily Spiriva Respimat 2.5 MCG/ACT inhaler 2 puffs, Inhalation, Daily Sure Comfort Pen [place] 32G X 4 MM misc 1 each, Subcutaneous, As needed Symbicort 160-4.5 MCG/ACT inhaler INHALE 2 PUFFS BY MOUTH TWICE DAILY *RINSE MOUTH AFTER USE* Xarelto 20 MG tablet 1 tablet, Oral, Daily with evening meal ALLERGIES: Allergies Allergen Reactions Ciprofloxacin GI intolerance Metronidazole GI intolerance Penicillins GI intolerance Sulfamethoxazole GI intolerance Trimethoprim GI intolerance REVIEW OF SYMPTOMS: Review of Systems Constitutional: Negative for appetite change, chills, fever and irritability. HENT: Negative for congestion, ear pain and sore throat. Eyes: Negative for pain, discharge, redness and visual disturbance. Respiratory: Positive for cough, shortness of breath and wheezing. Cardiovascular: Negative for chest pain, palpitations and leg swelling. Gastrointestinal: Negative for abdominal pain, blood in stool, constipation, diarrhea, nausea and vomiting. Genitourinary: Positive for frequency. Negative for difficulty urinating and dysuria. Musculoskeletal: Negative for arthralgias, back pain, joint swelling and myalgias. Skin: Positive for wound. Negative for rash. Neurological: Negative for dizziness, tremors, seizures, syncope and headaches. Psychiatric/Behavioral: Negative for behavioral problems, self-injury and suicidal ideas. The patient is nervous/anxious. Hematological: Does not bruise/bleed easily. Endocrine: Positive for polydipsia, polyphagia and polyuria. Allergic/Immunologic: Negative for environmental allergies and food allergies. PAST MEDICAL HISTORY Past Medical History: Diagnosis Date Anxiety and depression ([facility]) 07/18/2023 Atrial fibrillation ([facility]) 07/18/2023 COPD mixed type ([facility]) 05/23/2023 Drug-induced acute pancreatitis 07/18/2023 Edema of extremities 07/18/2023 GERD (gastroesophageal reflux disease) 07/18/2023 HLD (hyperlipidemia) ([facility]) 07/18/2023 Medical non-compliance 07/18/2023 Morbid obesity with body mass index (BMI) of 40.0 to 49.9 ([facility] 07/18/2023 Neuropathy, diabetic ([facility] 07/18/2023 SANTO (obstructive sleep apnea) 07/18/2023 Osteoporosis ([facility] 07/18/2023 Seasonal allergies 07/18/2023 Tobacco user 07/18/2023 Type 2 diabetes mellitus with complication, without long-term current use of insulin ([facility] 07/18/2023 Urge and stress incontinence 07/18/2023 Vitamin D deficiency 07/18/2023 Past Surgical History: Procedure Laterality Date APPENDECTOMY CHOLECYSTECTOMY HYSTERECTOMY Complete not due to cancer TONSILLECTOMY family history includes Diabetes in her mother; Heart disease in her mother; Hypertension in her mother; Stroke in her father. OBJECTIVE: Visit Vitals BP 142/78 (BP Location: Left arm, Patient Position: Sitting, BP Cuff Size: Adult long) Pulse 79 Temp 98 F (Temporal) Resp 19 Ht 5' 6 Wt 237 lb 3.2 oz SpO2 97% BMI 38.29 kg/m Smoking Status Former BSA 2.24 m Physical Exam Vitals reviewed. Constitutional: General: She is not in acute distress. Appearance: Normal appearance. HENT: Head: Normocephalic and atraumatic. Right Ear: Tympanic membrane, ear canal and external ear normal. Left Ear: Tympanic membrane, ear canal and external ear normal. Nose: Nose normal. No congestion or rhinorrhea. Mouth/Throat: Mouth: Mucous membranes are moist. Pharynx: No oropharyngeal exudate or posterior oropharyngeal erythema. Eyes: Extraocular Movements: Extraocular movements intact. Conjunctiva/sclera: Conjunctivae normal. Neck: Vascular: No carotid bruit. Cardiovascular: Rate and Rhythm: Normal rate and regular rhythm. Pulses: Normal pulses. Heart sounds: Normal heart sounds. Pulmonary: Effort: Pulmonary effort is normal. Breath sounds: Wheezing (few faint exp wheeze scattered) present. Abdominal: General: Bowel sounds are normal. There is no distension. Palpations: Abdomen is soft. There is no mass. Tenderness: There is no abdominal tenderness. Musculoskeletal: General: Normal range of motion. Cervical back: Neck supple. Right lower leg: No edema. Left lower leg: No edema. Skin: General: Skin is warm and dry. Capillary Refill: Capillary refill takes 2 to 3 seconds. Findings: No rash. Comments: Right buttock near superficial skin tears no drainage #2 lesions, measures approx 8mm, no surrounding erythema or exudate Neurological: General: No focal deficit present. Mental Status: She is alert and oriented to person, place, and time. Psychiatric: Mood and Affect: Mood normal. Behavior: Behavior normal. Thought Content: Thought content normal. Judgment: Judgment normal. ASSESSMENT AND PLAN: No follow-ups on file. Problem List Items Addressed This Visit COPD mixed type ([facility]) Continues to smoke, refused to quit Cont current meds at this time Primary hypertension ([facility]) stable Relevant Orders Comprehensive metabolic panel Type 2 diabetes mellitus with diabetic neuropathy, with long-term current use of insulin ([facility]) - Primary Non compliant with follow up with Endo Explained to her her persistent non compliance will lead to increase risk stroke, NC, blindness, amputation, as well as CKD Instructed her to contact Dr Gilman's office Check blood sugars daily, notify if <70 or >200. Take medications (pills or insulin) as directed. Monitor for s/s of hypoglycemia (sweaty, dizziness, nausea, vomiting, or shakiness). Watch for increase in thirst, urination, or appetite. Inspect feet frequently monitoring for open wounds , and also recommend yearly eye exam. Pt should attempt to remain as physically active as chronic conditions allow, as well as trying to follow a diet low in carbohydrates, and simple sugars. SANTO (obstructive sleep apnea) Non compliance , has been instructed in the past on importance of need to wear PAP Not wearing risk stroke, NC, GERD (gastroesophageal reflux disease) Relevant Orders CBC and differential Vitamin D deficiency Relevant Orders Vitamin D 25 hydroxy Type 2 diabetes mellitus with complication, without long-term current use of insulin ([facility]) Relevant Orders Comprehensive metabolic panel Microalbumin / creatinine, urine ratio Urinalysis with reflex microscopic (clean catch) Hemoglobin A1c HLD (hyperlipidemia) ([facility]) Relevant Orders Lipid panel Comprehensive metabolic panel Anxiety and depression ([facility]) Stable at this time Encounter for screening mammogram for malignant neoplasm of breast Relevant Orders Bilateral screening mammogram COVID Recent hospitalization for this, appears to be doing quite well Open wound No s/s infection, recommend using diaper barrier ointment on this documented in this encounter [facility] Progress note 01-08-2023 Note Date & Type [...] All other systems reviewed and are negative. [facility] Progress note 01-08-2023 Note Date & Type [...] dyspnea Brother end of July Still smoking 1/ ppd Wears supplemental Oxygen 2L Follows with [...] Lexiscan stress test (more content not included)... [facility] Progress note 07-02-2022 Note Date & Type Note Facility 07-02-2022 Note Patient here for 6 m o follow up afib and hypertension. She was admitted to [facility] in Apr 2022 for pneumonia and sepsis. Had echo while inpatient. Denies chest pain and bleeding on Xarelto. Denies palpitations and LE edema. She sees pulmonary for the first time in a few weeks. Review of Systems Cardiovascular: Positive for dyspnea on exertion. Respiratory: Positive for cough and shortness of breath. All other systems reviewed and are negative. [facility] Progress note 07-02-2022 Note Date & Type Note Facility 07-02-2022 Note Cardiovascular Medic [facility] SUBJECTIVE Chief Complaint Patient presents with [...] Patient Active Problem List Diagnosis Atrial fibrillation ([facility]) Chest pain Chronic obstructive lung disease ([facility]) Essential hypertension Headache Palpitations Sleep apnea Syncope and collapse Tobacco dependence syndrome Type 2 diabetes mellitus without complication ([facility]) Past Medical History: Diagnosis Date Atrial fibrillation ([facility]) COPD (chronic obstructive pulmonary disease) ([facility]) Coronary artery disease Diabetes mellitus ([facility]) Hypertension Sleep apnea Family History Problem Relation [...] heart sounds. Pulmonary: (more content not included)... [facility] Clinical Note 06-07-2022 Note Date & Type [...] by: PATRICK HART Date: 2022-06-07 08:43 [facility] Evaluation note Note Date & Type Note Facility Evaluation note Diagnosis Primary hypertension (CMS/HCC)- Primary Unspecified essential hypertension Type 2 diabetes mellitus with diabetic neuropathy, with long-term current use of insulin (CMS/HCC) Gastroesophageal reflux disease, unspecified whether esophagitis present Vitamin D deficiency Type 2 diabetes mellitus with complication, without long-term current use of insulin (CMS/HCC) Mixed hyperlipidemia (CMS/HCC) Mixed hyperlipidemia Encounter for screening mammogram for malignant neoplasm of breast SANTO (obstructive sleep apnea) Obstructive sleep apnea (adult) (pediatric) COPD mixed type (CMS/HCC) Anxiety and depression (CMS/HCC) COVID Open wound Open wound(s) (multiple) of unspecified site(s), without mention of complication Morbid obesity with body mass index (BMI) of 40.0 to 49.9 (CMS/HCC) documented in this encounter [facility] Summary Purpose Family History No Family History Records FoundNo Family History Records FoundNo Family History Records FoundNo Family History Records Found Advance Directives No Advanced Directives Records FoundNo Advanced Directives Records FoundNo Advanced Directives Records FoundNo Advanced Directives Records Found Additional Source Comments INFORMATION SOURCE (unrecogn ized section and content) DATE CREATED AUTHOR 10/06/2018 [facility] DATE CREATED AUTHOR AUTHOR'S ORGANIZ ATION 10/09/2022 [facility] DATE CREATED AUTHOR AUTHOR'S ORGANIZ ATION 01/08/2023 [facility] DATE CREATED AUTHOR AUTHOR'S ORGANIZ ATION 07/20/2023 [facility] dical Specialists EPIC Care Teams (unrecognized sec tion and content) [employer] Relationship Specialty Start Date End Date Brandon Mcfarlane MD [address] [place] [phone] PCP - General Family Medicine 06/26/23 Maira Rush NP [address] [place] [phone] Referring Physician Nurse Practitioner 12/17/22 [employer] Relationship Specialty Start Date End Date Brandon Mcfarlane MD [address] [place] [phone] PCP - General Family Medicine 06/26/23 Maira Rush NP [address] [place] [phone] Referring Physician Nurse Practitioner 12/17/22 FOR RECORDS PERTAINING TO PATIENTS WHO ARE [...] BE BASED ON THE PRIMARY CLINICAL RECORDS. [employer] [facility]. provides no warranty or guarantee of the accuracy or completeness of information in this document.
[2023-08-05 09:12] LABS: Bilirubin Urine NEGATIVE (NEGATIVE); Blood Urine NEGATIVE (NEGATIVE); Clarity Urine CLEAR (CLEAR); Color Urine LT. YELLOW (YELLOW); Glucose Urine UA >=1000 mg/dL (NEGATIVE); Ketones Urine NEGATIVE (NEGATIVE); Leukocyte Esterase Urine NEGATIVE (NEGATIVE); Nitrite Urine NEGATIVE (NEGATIVE); Protein Urine NEGATIVE (NEG/TRACE); Specific Gravity Urine 1.015 (1.005-1.025); Urobilinogen Urine 0.2 EU/dL (0.2-1.0)
[2023-08-05 09:15] LABS: Urine Microscopic Indicated NO
[2023-08-05 09:26] LABS: Basophils Absolute Auto 0.1 10^3/uL (0.0-0.1); Basophils Percent Auto 0.7 % (0.2-2.0); Eosinophils Absolute Auto 0.2 10^3/uL (0.0-0.7); Eosinophils Percent Auto 2.1 % (0.9-7.0); Hematocrit 52.2 % (36.0-48.0); Hemoglobin 16.9 g/dL (12.0-16.0); Immature Granulocytes Abs Auto 0.03 10^3/uL (0.00-0.03); Immature Granulocytes Pct Auto 0.3 % (0.0-0.5); Lymphocytes Absolute Auto 2.9 10^3/uL (1.2-3.8); Lymphocytes Percent Auto 28.5 % (20.5-60.0); Mean Corpuscular HGB Conc 32.4 g/dL (29.9-35.2); Mean Corpuscular Hemoglobin 31.1 pg (26.7-34.0); Mean Corpuscular Volume 96.1 fL (81.0-99.0); Mean Platelet Volume 11.2 fL (9.5-13.5); Monocytes Absolute Auto 0.7 10^3/uL (0.3-0.8); Monocytes Percent Auto 7.2 % (1.7-12.0); Neutrophils Absolute Auto 6.3 10^3/uL (1.4-6.5); Neutrophils Percent Auto 61.2 % (43.0-75.0); Platelet Count 259 10^3/uL (150-450); Red Blood Count 5.43 10^6/uL (4.20-5.40); Red Cell Distribution Width 13.3 % (11.0-15.0); White Blood Count 10.2 10^3/uL (4.0-11.0)
[2023-08-05 09:44] LABS: Alanine Aminotransferase 26 U/L (14-59); Albumin Globulin Ratio 0.9; Albumin Level 3.4 g/dL (3.4-5.0); Alkaline Phosphatase 95 U/L (46-116); Anion Gap 11.7; Aspartate Amino Transferase 16 U/L (15-37); BUN Creatinine Ratio 16.2; Bilirubin Total 0.7 mg/dL (0.2-1.0); Calcium 9.1 mg/dL (8.5-10.1); Carbon Dioxide 30.6 mmol/L (21.0-32.0); Chloride 100 mmol/L (98-107); Chol HDL Ratio 2.9; Cholesterol 129 mg/dL (<=200); Estimated GFR (African America >60 (>=60); Estimated GFR (Non-African Ame >60 (>=60); Glucose 271 mg/dL (74-106); HDL Cholesterol 45 mg/dL (40-60); LDL Cholesterol Calculated 61.2 mg/dL; Potassium 4.3 mmol/L (3.5-5.1); Sodium 138 mmol/L (136-145); Total Protein 7.4 g/dL (6.4-8.2); Triglycerides 114 mg/dL (<=150); VLDL CHOLESTEROL 22.8 mg/dL
[2023-08-05 09:57] LABS: Creatinine Urine Random 18.59 mg/dL (20.00-300.00); Microalbum Creatinine Ratio Ur 69.9 mg/g (0.0-29.9); Microalbumin Urine Random <1.3 mg/dL (<=30.0)
[2023-08-05 11:02] LABS: Estimated Average Glucose 295 mg/dL; Glycohemoglobin A1C 11.9 % (4.5-6.2)
== END 2023-08-05 08:37 | disposition home or self-care (01) ==
LOC: MAMMO 08:37
PROVIDERS: PCP Nurse Practitioner; Visit Provider Nurse Practitioner
DX: Z12.31 Encounter for screening mammogram for malignant neoplasm of breast (principal); K21.9 Gastro-esophageal reflux disease without esophagitis; E78.2 Mixed hyperlipidemia; I10 Essential (primary) hypertension; E11.8 Type 2 diabetes mellitus with unspecified complications; E55.9 Vitamin D deficiency, unspecified; Z80.3 Family history of malignant neoplasm of breast
CPT/HCPCS: 36415; 77063; 77067; 80053; 80061; 81003; 82043; 82306; 82570; 83036; 85025

== ENCOUNTER 2023-09-16 08:27 | Emergency (ER) | payer OTHER, SELFPAY ==
[2023-09-16 08:33] VITALS: BP 138/76; PULSE 77; TEMP 36.4; O2SAT 95; BMI 37.8
--- NOTE | 2023-09-16 08:45 | XR_ITS ---
The [address] [address] Patient Name: RODDY HORN MRN: [id number] date: 1960 Sex: F Assigned Patient Location: ER Current Patient Location: ER Accession/Order Number: [id number] Exam Date: 09/16/2023 09:09 Report Date: 09/16/2023 09:35 At the request of: SACHA MONTANO Procedure: XR chest 1V EXAM: XR chest 1V HISTORY: cough COMPARISON: None. TECHNIQUE: AP view of the chest. FINDINGS: The cardiomediastinal silhouette is normal. The lungs are clear. There is no pneumothorax. No pleural effusion is noted. The osseous structures are intact. XR/XR chest 1V IMPRESSION: No acute cardiopulmonary process. Electronically authenticated by: BREANNE MISHRA Date: 09/16/2023 09:35
--- NOTE | 2023-09-16 08:46 | ED_ITS ---
HPI - SOB/Dyspnea General Chief Complaint: Shortness of Breath/Dyspnea Stated Complaint: SOB, FEVER Time Seen by Provider: 09/16/23 08:31 Source: patient Mode of arrival: walk-in Limitations: no limitations History of Present Illness HPI Narrative: 63-year-old female presents for cough and shortness of breath. She has been coughing up yellow phlegm and she has a nebulizer at home but had run out of the albuterol for it so she has not had an aerosol treatment in a few weeks. She has not had a known fever or hemoptysis. She is not complaining of chest pain. She has been sick for few days. Related Data Home Medications ?Medication ?Instructions ?Recorded ?Confirmed aspirin 81 mg tablet,delayed 81 mg PO DAILY 04/05/23 06/24/23 release budesonide-formoterol HFA 160 2 puff inhalation BID 04/05/23 06/24/23 mcg-4.5 mcg/actuation aerosol inhaler (Symbicort) calcium carbonate 500 mg-vitamin 1 tab PO BID 04/05/23 06/24/23 D3 10 mcg (400 unit) tablet carvedilol 12.5 mg tablet 12.5 mg PO BID 04/05/23 06/24/23 empagliflozin 25 mg tablet 25 mg PO DAILY 04/05/23 06/24/23 (Jardiance) gabapentin 600 mg tablet 600 mg PO TID 04/05/23 06/24/23 insulin aspart U-100 100 unit/mL 1 sliding scale dose subcut 04/05/23 06/24/23 (3 mL) subcutaneous pen (Novolog TIDWMEAL FlexPen U-100 Insulin aspart) insulin glargine 100 unit/mL (3 60 unit subcut QPM 04/05/23 06/24/23 mL) subcutaneous pen (Lantus Solostar U-100 Insulin) loratadine 10 mg tablet 10 mg PO DAILY 04/05/23 06/24/23 losartan 100 mg tablet 100 mg PO DAILY 04/05/23 06/24/23 pantoprazole 40 mg tablet,delayed 40 mg PO DAILY 04/05/23 06/24/23 release paroxetine HCl 10 mg tablet 10 mg PO DAILY 04/05/23 06/24/23 potassium chloride 10 mEq 10 meq PO DAILY 04/05/23 06/24/23 capsule,extended release rivaroxaban 20 mg tablet (Xarelto) 20 mg PO DAILY 04/05/23 06/24/23 rosuvastatin 5 mg tablet 5 mg PO DAILY 04/05/23 06/24/23 spironolactone 25 mg tablet 25 mg PO BID 04/05/23 06/24/23 tiotropium bromide 2.5 2 puff inhalation DAILY 04/05/23 06/24/23 mcg/actuation mist for inhalation (Spiriva Respimat) Previous Rx's ?Medication ?Instructions ?Recorded albuterol sulfate 90 mcg/actuation 2 inh inhalation Q4H PRN shortness 06/25/23 aerosol inhaler of breath or wheezing #8.5 grams levofloxacin 750 mg tablet 750 mg PO DAILY 7 days #7 tabs 06/25/23 prednisone 20 mg tablet 20 mg PO DAILY 5 days #5 tabs 06/25/23 albuterol sulfate 2.5 mg/3 mL 2.5 mg (3 mL) inhalation Q6H PRN 09/16/23 (0.083 %) solution for nebulization shortness of breath or wheezing #90 mL azithromycin 250 mg tablet See Rx Instructions PO .COMPLEX #6 09/16/23 (Zithromax Z-Eleazar) tabs Allergies Allergy/AdvReac Type Severity Reaction Status Date / Time ciprofloxacin [From Cipro] AdvReac Intermediate Vomiting Verified 06/24/23 09:23 metronidazole [From Flagyl] AdvReac Intermediate Vomiting Verified 06/24/23 09:23 Penicillins AdvReac Intermediate Vomiting Verified 06/24/23 09:23 sulfamethoxazole AdvReac Intermediate Vomiting Verified 11/09/22 11:26 [From Bactrim] trimethoprim [From Bactrim] AdvReac Intermediate Vomiting Verified 11/09/22 11:26 Review of Systems ROS Narrative A ten point review of systems is negative except as noted above. [facility] Medical History (Updated 09/16/23 @ 10:00 by Luis Antonio Garcia MD) A-fib ?I48.91 - Unspecified atrial fibrillation (ICD-10) Hypertension ?I10 - Essential (primary) hypertension (ICD-10) Diabetes ?E11.9 - Type 2 diabetes mellitus without complications (ICD-10) Acute shoulder pain ?M25.519 - Pain in unspecified shoulder (ICD-10) Hyperlipidemia ?E78.5 - Hyperlipidemia, unspecified (ICD-10) Depression ?F32.A - Depression, unspecified (ICD-10) Chronic obstructive pulmonary disease ?J44.9 - Chronic obstructive pulmonary disease, unspecified (ICD-10) Surgical History (Updated 06/24/23 @ 12:13 by Aliyah Ruiz RN) History of appendectomy ?Z90.49 - Acquired absence of other specified parts of digestive tract (ICD- 10) Hx of cholecystectomy ?Z90.49 - Acquired absence of other specified parts of digestive tract (ICD- 10) H/O: hysterectomy ?Z90.710 - Acquired absence of both cervix and uterus (ICD-10) Family History (Updated 06/24/23 @ 12:13 by Aliyah Ruiz RN) Mother Family history of diabetes mellitus Grandfather Family history of diabetes mellitus Father Family history of stroke Social History (Updated 06/24/23 @ 12:14 by Aliyah Ruiz RN) Within the past year, how often did you have a drink containing alcohol: never Score interpretation: A score less than 3 is consistent with normal alcohol consumption. Smoking status: Current every day smoker Non-prescribed substance use: denies use Highest level of school completed/degree received: high school graduate Gender Identity: female Exam Narrative Exam Narrative: Nurses note and vital signs reviewed and patient is not hypoxic. General: The patient appears well and in no apparent distress. Patient is resting comfortably on cart. Skin: Warm, dry, no pallor noted. There is no rash noted. Head: Normocephalic, atraumatic Eye: Normal conjunctiva, no drainage Ears, Nose, Mouth, and Throat: oral mucosa is moist. Nares patent. Cardiovascular: Regular Rate and Rhythm Respiratory: Patient is in no distress, no accessory muscle use, bilateral rhonchi present Back: non-tender, no CVA tenderness bilaterally to percussion. GI: Soft and nontender Musculoskeletal: The patient has no evidence of calf tenderness, no pitting edema, symmetrical pulses noted bilaterally Neurological: A&O, normal speech Psychiatric: Cooperative Constitutional Vital Signs, click to edit/add: Last Vital Signs Temp 97.6 F 09/16/23 08:33 Pulse 72 09/16/23 08:58 Resp 18 09/16/23 08:33 BP 138/76 09/16/23 08:33 Pulse Ox 94 L 09/16/23 08:58 O2 Del Method Room Air 09/16/23 08:58 Course Vital Signs Vital signs: Vital Signs Temperature 97.6 F 09/16/23 08:33 Pulse Rate 77 09/16/23 08:33 Respiratory Rate 18 09/16/23 08:33 Blood Pressure 138/76 09/16/23 08:33 Pulse Oximetry 95 09/16/23 08:33 Oxygen Delivery Method Room Air 09/16/23 08:33 Temperature 97.6 F 09/16/23 08:33 Pulse Rate 72 09/16/23 08:58 Respiratory Rate 18 09/16/23 08:33 Blood Pressure 138/76 09/16/23 08:33 Pulse Oximetry 94 L 09/16/23 08:58 Oxygen Delivery Method Room Air 09/16/23 08:58 MDM - SOB/Dyspnea MDM Narrative Medical decision making narrative: Chest x-ray, COVID, and influenza test are all negative. She will be discharged home on Zithromax and was given albuterol for her nebulizer. Treatment diagnosis and follow-up were discussed with the patient. Differential Diagnosis Differential diagnosis: Likely acute exacerbation of chronic obstructive airways disease, community acquired pneumonia and other (COVID, influenza) Lab Data Attestation: I reviewed the patient's lab results. Labs: Lab Results 09/16/23 Range/Units 08:54 Influenza Type A Ag Negative Influenza Type B Ag Negative SARS-CoV-2 Ag (CV2AG) Negative (NEGATIVE) Imaging Data Chest x-ray: Radiologist's impression: ITS Impressions Chest X-Ray 09/16/23 08:45 IMPRESSION: No acute cardiopulmonary process. Electronically authenticated by: BREANNE MISHRA Date: 09/16/2023 09:35 Discharge Plan Discharge Stand Alone Forms: Portal Instructions Chief Complaint: Shortness of Breath/Dyspnea Clinical Impression: Acute infective exacerbation of chronic obstructive airway disease Patient Disposition: Home, Self-Care Time of Disposition Decision: 10:00 Condition: Good Mode of Transportation: Private Vehicle Prescriptions / Home Meds: New albuterol sulfate 2.5 mg /3 mL (0.083 %) solution for nebulization 2.5 mg inhalation Q6H PRN (Reason: shortness of breath or wheezing) Qty: 90 0RF azithromycin [Zithromax Z-Eleazar] 250 mg tablet See Rx Instructions .ROUTE .COMPLEX Qty: 6 0RF Rx Instructions: For 250 mg dose pack: take 500 mg today (day 1), then 250 mg for 4 days (days 2-5) No Action levofloxacin 750 mg tablet 750 mg PO DAILY 7 Days Qty: 7 0RF prednisone 20 mg tablet 20 mg PO DAILY 5 Days Qty: 5 0RF albuterol sulfate 90 mcg/actuation HFA aerosol inhaler 2 inh inhalation Q4H PRN (Reason: shortness of breath or wheezing) Qty: 8.5 0RF aspirin 81 mg tablet,delayed release (DR/EC) 81 mg PO DAILY budesonide-formoterol [Symbicort] 160-4.5 mcg/actuation HFA aerosol inhaler 2 puff INHALATION BID calcium carbonate-vitamin D3 500 mg-10 mcg (400 unit) tablet 1 tab PO BID carvedilol 12.5 mg tablet 12.5 mg PO BID Jardiance 25 mg tablet 25 mg PO DAILY gabapentin 600 mg tablet 600 mg PO TID insulin aspart U-100 [Novolog FlexPen U-100 Insulin] 100 unit/mL (3 mL) insulin pen 1 sliding scale dose SUBCUT TIDWMEAL insulin glargine [Lantus Solostar U-100 Insulin] 100 unit/mL (3 mL) insulin pen 60 unit SUBCUT QPM loratadine 10 mg tablet 10 mg PO DAILY losartan 100 mg tablet 100 mg PO DAILY pantoprazole 40 mg tablet,delayed release (DR/EC) 40 mg PO DAILY paroxetine HCl 10 mg tablet 10 mg PO DAILY potassium chloride 10 mEq capsule, extended release 10 meq PO DAILY Xarelto 20 mg tablet 20 mg PO DAILY rosuvastatin 5 mg tablet 5 mg PO DAILY spironolactone 25 mg tablet 25 mg PO BID Spiriva Respimat 2.5 mcg/actuation mist 2 puff INHALATION DAILY Print Language: Yakut Instructions: COPD (Chronic Obstructive Pulmonary Disease) (ED) Referrals: Maira Rush NP [Primary Care Provider] - 1 week
[2023-09-16 08:58] VITALS: PULSE 72; O2SAT 94
[2023-09-16] MEDS: ALBUTEROL SULFATE 2.5 MG/3 ML VIAL NEB IH (08:58)
[2023-09-16 09:26] LABS: Influenza Virus A Antigen Negative; Influenza Virus B Antigen Negative; Internal Control Within Normal Limits; SARS-CoV-2 Ag NEGATIVE (NEGATIVE)
[2023-09-16 10:06] VITALS: O2SAT 99
== END 2023-09-16 10:11 | disposition home or self-care (01) ==
PROVIDERS: Emergency Provider Emergency Medicine; PCP Nurse Practitioner
DX: J44.1 Chronic obstructive pulmonary disease with (acute) exacerbation (principal); I48.91 Unspecified atrial fibrillation; I10 Essential (primary) hypertension; E11.9 Type 2 diabetes mellitus without complications; E78.5 Hyperlipidemia, unspecified; F32.A Depression, unspecified; F17.210 Nicotine dependence, cigarettes, uncomplicated; Z90.49 Acquired absence of other specified parts of digestive tract; Z79.82 Long term (current) use of aspirin; Z79.899 Other long term (current) drug therapy; Z79.4 Long term (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; Z90.710 Acquired absence of both cervix and uterus; Z20.822 Contact with and (suspected) exposure to COVID-19
CPT/HCPCS: 71045; 87804; 87811; 94640; 99284

== ENCOUNTER 2024-01-03 19:38 | Emergency (ER) | payer OTHER, SELFPAY ==
[2024-01-03 19:40] VITALS: BP 121/58; PULSE 69; TEMP 36.3; O2SAT 93; BMI 32.6
--- OUTSIDE RECORDS SUMMARY | 2024-01-03 19:45 | XMS_ITS | CCD ---
Author Organization [facility] Care Team Providers Care Shear Grinder Operator Name Role Phone PHYSICIAN, DEFAULT Admitting Unavailable PHYSICIAN, DEFAULT Attending Unavailable AICHHOLZ, MAIRA Primary Care Unavailable PHYSICIAN, DEFAULT Admitting Unavailable PHYSICIAN, DEFAULT Attending Unavailable AICHHOLZ, MAIRA Primary Care Unavailable AICHHOLZ, MILL TENDER WASHING MAIRA Primary Care Unavailable SACHA MONTANO Admitting Unavailable KIAN POTTS Consulting Unavailabl e SACHA MONTANO Attending Unavailable Patrick Hart Consulting Unavailable HANNAH TOVAR Admitting Unavailable AICHHOLZ, MILL TENDER WASHING MAIRA Primary Care Unavailable HANNAH TOVAR Attending Unavailable HANNAH TOVAR Consulting Unavailable AICHHOLZ, MILL TENDER WASHING MAIRA Consulting Unavailable AICHHOLZ, MILL TENDER WASHING MAIRA Primary Care Unavailable AICHHOLZ, MILL TENDER WASHING MAIRA Admitting Unavailable AICHHOLZ, MILL TENDER WASHING MAIRA Attending Unavailable AICHHOLZ, MILL TENDER WASHING MAIRA Attending Unavailable AICHHOLZ, MILL TENDER WASHING MAIRA Consulting Unavailable AICHHOLZ, MILL TENDER WASHING MAIRA Primary Care Unavailable AICHHOLZ, MILL TENDER WASHING MAIRA Admitting Unavailable Patrick Hart Consulting Unavailable AICHHOLZ, MILL TENDER WASHING MAIRA Attending Unavailable AICHHOLZ, MILL TENDER WASHING MAIRA Consulting Unavailable AICHHOLZ, MILL TENDER WASHING MAIRA Primary Care Unavailable AICHHOLZ, MILL TENDER WASHING MAIRA Admitting Unavailable DR CORINE ANGELA V Consulting Unavailable AICHHOLZ, MILL TENDER WASHING MAIRA Primary Care Unavailable AICHHOLZ, MILL TENDER WASHING MAIRA Admitting Unavailable AICHHOLZ, MILL TENDER WASHING MAIRA Attending Unavailable AICHHOLZ, MILL TENDER WASHING MAIRA Consulting Unavailable DR TERI MAURO Admitting Unavailable AICHHOLZ, MILL TENDER WASHING MAIRA Primary Care Unavailable UMAIR Macdonald, DR WILLIAMSON Attending Unavailable DR TERI MAURO Consulting Unavailable DR CORINE ANGELA V Consulting Unavailable DR BRANDON MCFARLANE Consulting Unavailable DR NEHA GATICA Consulting Unavailable YECENIA MONTERO Consulting Unavailable Aichholz MANAGER ORGANIZATIONAL, Maira Unavailable Brandon Mcfarlane MD Primary Care Provider LORENZO ACE Attending Unavailable MAIRA RUSH Attending Unavailable MAIRA RUSH Attending Unavailable MAIRA RUSH Attending Unavailable Allergies Allergy Classification Reported Allergen(s) Allergy Type Date of Onset Reaction(s) Facility (2 sources) Ciprofloxacin Drug Allergy 10-11-19 12 [facility] (2 sources) metroNIDAZOLE Drug Allergy 10-11-19 12 [facility] (3 sources) Penicillins; Translations: [PENICILLINS] Drug allergy (disorder) 10-11-19 12 [facility] (2 sources) Sulfamethoxazole / Trimethoprim Drug Allergy 10-11-19 12 [facility] (4 sources) Ciprofloxacin; Translations: [CIPROFLOXACIN] Drug Allergy 05-21-20 14 GI intolerance [facility] (4 sources) metroNIDAZOLE; Translations: [METRONIDAZOLE] Drug Allergy 05-21-20 14 GI intolerance [facility] (3 sources) Penicillins Drug Allergy 06-29-19 24 GI intolerance [facility] (3 sources) Sulfamethoxazole Allergy to substance 06-29-19 24 GI intolerance [facility] (3 sources) Trimethoprim Drug Allergy 06-29-19 24 GI intolerance [facility] (1 source) Sulfamethoxazole / Trimethoprim; Translations: [SULFAMETHOXAZOLE-TR IMETHOPRIM] Drug Allergy 05-21-20 14 [facility] Medications Current Medications Medication Drug Class(es) Dates [...] morning PARoxetine (Paxil) 10 MG tablet Indications: JORDAN (generalized anxiety disorder) (CMS/HCC) Take 1 tablet [...] atrial fibrillation; Translations: [Atrial fibrillation] Onset: 06-11-2022 07-18-2023 Chronic Chronic obstructive pulmonary disease and bronchiectasis [...] (primary) hypertension; Translations: [Essential hypertension] Onset: 06-11-2022 06-26-2023 Chronic Genitourinary symptoms and ill-defined conditions (3 [...] fracture; Translations: [Osteoporosis] Onset: 10-02-2022 Chronic Other bone disease and musculoskeletal deformities (1 source) Other specified disorders of bone density and structure, unspecified site; Translations: [OTH D/O BONE DEN STRUCT UNS SITE] Onset: 10-08-2022 Episodic Other injuries and conditions due to external causes (4 sources) Open wound; Translations: [Other injury of unspecified body region, initial encounter] Onset: 07-18-2023 07-18-2023 Episodic Other nutritional; endocrine; and metabolic disorders [...] Onset: 06-11-2022 Episodic Other aftercare (1 source) 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; 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] Onset: 06-11-2022 Episodic Other aftercare (3 sources) half-way (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; Translations: [REAL ESTATE SALES ASSOCIATE CURRENT USE OF INSULIN] Onset: 06-11-2022 Episodic Other aftercare (1 source) Other prison (current) drug therapy; Translations: [OTH REAL ESTATE SALES ASSOCIATE CURRENT DRUG THERAPY] Onset: 06-11-2022 Episodic Other aftercare (1 source) terminal computer operator (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 of anticoagulants; Translations: [HALF-WAY CURRNT USE ANTICOAGULANTS] Onset: 11-27-2021 Episodic Other [...] Test Name Value Interpretation Reference Range Facility 36on 09-05-2023 36 Can order for lasix 20mg daily. Thanks [facility] 36on 09-04-2023 36 Doesn't look like we have noted her to be on lasix since 01/2023. How often was she taking it? Was her PCP prescribing it? [facility] Office Visiton 01-08-2023 Follow-up visit [id number] Roddy Dior 1960 F Date Provider Department Center 01/08/2023 [id number] BHATTI [facility] Family History Problem Relation Age of Onset Stroke Father Family Status - Relation Status Age at Father Level of Service:[address] [place] OFFICE/OUTPATIENT ESTABLISHED MOD MDM 30-39 MIN Normal [facility] XR DEXA BONE DENSITYon 10-02 XR [...] by: PATRICK HART Date: 2022-10-02 12:08 Normal [facility] LIPID PROFILEon 08-09-2022 CHOL-HDL RATIO NORM SEE BELOW Normal [facility] Comment on above: Result Comment: 3.3 - 4.4 LOW RISK 4.4 - 7.1 AVERAGE RISK 7.1 - 11.0 MODERATE RISK >11.0 HIGH RISK Performed By: #### M ALBR #### [facility] [address] [place] [address] Dr. Maru Disla Cholesterol [Mass/Vol] 110 mg/dL Normal <=200 [facility] Comment on above: Performed By: #### M ALBR #### [facility] [address] [address] [address] Maru Disla Cholesterol in HDL [Mass/Vol] 38 mg/dL Critically low 40-60 [facility] Comment on above: Performed By: #### M ALBR #### [facility] [address] [place] [address] Dr. Maru Disla Cholesterol in LDL [Mass/Vol] 52.4 mg/dL Normal [facility] Comment on above: Performed By: #### M ALBR #### [facility] [address] [place] [address] Dr. Maru Disla Cholesterol.total/C holesterol in HDL [Mass ratio] 2.9 {ratio} Normal [facility] Comment on above: Performed By: #### M ALBR #### [facility] [address] [place] [address] Dr. Maru Disla HDL NORMAL > or = 60 mg/dl - LO W CARDIOVASCULAR RISK <40 mg/dl - HIGH CARDIOVASCULAR RISK Normal [facility] Comment on above: Performed By: #### M ALBR #### [facility] [address] [address] [address] Maru Disla LDL CALC NORMAL SEE BELOW Normal [facility] Comment on above: Result Comment: <100 mg/dl OPTIMAL 100 - 129 mg/dl NEAR OR ABOVE OPTIMAL 130 - 159 mg/dl BORDERLINE HIGH 160 - 189 mg/dl HIGH >190 mg/dl VERY HIGH Performed By: #### M ALBR #### [facility] [address] [place] [address] Dr. Maru Disla Triglyceride [Mass/Vol] 98 mg/dL Normal <=150 [facility] Comment on above: Performed By: #### M ALBR #### [facility] [address] [place] [address] Dr. Maru Disla VLDL CALC 19.6 mg/dL Normal [facility] Comment on above: Performed By: #### M ALBR #### [facility] [address] [place] [address] Dr. Maru Disla MICROALBUMIN, RAND URon 03-0 mALB <1.3 Normal <=30.0 [facility] Comment on above: Performed By: #### M ALBR #### [facility] [address] [place] [address] Dr. Maru Disla PROF 14(COMP METB)on 023 Albumin [Mass/Vol] 3.6 g/dL Normal 3.4-5.0 [facility] Comment on above: Performed By: #### M ALBR #### [facility] [address] [place] [address] Dr. Maru Disla Albumin/Globulin [Mass ratio] 0.9 {ratio} Normal [facility] Comment on above: Performed By: #### M ALBR #### [facility] [address] [place] [address] Dr. Maru Disla ALP [Catalytic activity/Vol] 92 U/L Normal 46-116 [facility] Comment on above: Performed By: #### M ALBR #### [facility] [address] [place] [address] Dr. Maru Disla ALT [Catalytic activity/Vol] 22 U/L Normal 14-[address] [facility] Comment on above: Performed By: #### M ALBR #### [facility] [address] [place] [address] Dr. Maru Disla Anion gap [Moles/Vol] 13.2 mmol/L Normal [facility] Comment on above: Performed By: #### M ALBR #### [facility] [address] [place] [address] Dr. Maru Disla AST [Catalytic activity/Vol] 17 U/L Normal 15-37 [facility] Comment on above: Performed By: #### M ALBR #### [facility] [address] [address] [address] Maru Disla Bilirubin [Mass/Vol] 0.4 mg/dL Normal 0.2-1.0 [facility] Comment on above: Performed By: #### M ALBR #### [facility] [address] [address] [address] Maru Disla Calcium [Mass/Vol] 9.3 mg/dL Normal 8.5-10.1 [facility] Comment on above: Performed By: #### M ALBR #### [facility] [address] [address] [address] Maru Disla Chloride [Moles/Vol] 102 mmol/L Normal 98-107 [facility] Comment on above: Performed By: #### M ALBR #### [facility] [address] [place] [address] Dr. Maru Disla CO2 [Moles/Vol] 29.7 mmol/L Normal 21.0-32.0 [facility] Comment on above: Performed By: #### M ALBR #### [facility] [address] [place] [address] Dr. Maru Disla Creatinine [Mass/Vol] 0.74 mg/dL Normal 0.55-1.02 [facility] Comment on above: Performed By: #### M ALBR #### [facility] [address] [place] [address] Dr. Maru Dsila EGFR-AF LEBANESE >60 Normal >=60 [facility] Comment on above: Performed By: #### M ALBR #### [facility] [address] [place] [address] Dr. Maru Disla EGFR-NON AF LEBANESE >60 Normal >=60 [facility] Comment on above: Performed By: #### M ALBR #### [facility] [address] [place] [address] Dr. Maru Disla Globulin (S) [Mass/Vol] 3.9 g/dL Normal [facility] Comment on above: Performed By: #### M ALBR #### [facility] [address] [place] [address] Dr. Maru Disla Glucose [Mass/Vol] 271 mg/dL Critically high 74-106 [facility] Comment on above: Performed By: #### M ALBR #### [facility] [address] [address] [address] Maru Disla Potassium [Moles/Vol] 3.9 mmol/L Normal 3.5-5.1 [facility] Comment on above: Performed By: #### M ALBR #### [facility] [address] [address] [address] Maru Disla Protein [Mass/Vol] 7.5 g/dL Normal 6.4-8.2 [facility] Comment on above: Performed By: #### M ALBR #### [facility] [address] [address] [address] Maru Disla Sodium [Moles/Vol] 141 mmol/L Normal 136-145 [facility] Comment on above: Performed By: #### M ALBR #### [facility] [address] [address] [address] Maru Disla Urea nitrogen [Mass/Vol] 8.0 mg/dL Normal 7.0-18.0 [facility] Comment on above: Performed By: #### M ALBR #### [facility] [address] [place] [address] Dr. Maru Disla Urea nitrogen/Creatinine [Mass ratio] 10.8 mg/mg Normal [facility] Comment on above: Performed By: #### M ALBR #### [facility] [address] [address] [address] Maru Disla MG MAMM SCREEN 3D BALDO CADon 06-21-2022 MG MAMM SCREEN 3D BALDO CAD Patient: RODDY DIOR Exam Date: 06/21/2022 : 1960 Gender:F Ordering : DMITRY RUSH CNP Admission #: [id number] Family : Order #: [id number] CLICK HERE TO VIEW EXAM RADIOLOGY REPORT [...] breast cancer at age 64. LOCATION: [facility] BREAST COMPOSITION: Scattered areas fibroglandular density. [...] MD on 06/21/2022 at 10:10 Normal [facility] HEMOGLOBINon 06-20-2022 Hemoglobin (Bld) [Mass/Vol] 15.1 g/dL Normal 12.0-16.0 [facility] Comment on above: Performed By: #### B MP #### [facility] [address] [place] [address] Dr. Maru Disla BNPon 04-09-2022 Natriuretic peptide B (Bld) [Mass/Vol] 824.0 pg/mL Normal <=900.0 [facility] Comment on above: Performed By: #### M ALBR #### [facility] [address] [place] [address] Dr. Maru Disla CARDIAC BREANNE ADMITon 022 CK [Catalytic activity/Vol] 364 U/L Critically high 26-192 [facility] Comment on above: Performed By: #### P OCGLUC #### [facility] [address] [place] [address] Dr. Maru Disla CK.MB [Mass/Vol] 5.60 ng/mL Critically high <=3.60 [facility] Comment on above: Performed By: #### P OCGLUC #### [facility] [address] [place] [address] Dr. Maru Disla HSTROP 454.7 pg/mL Critically high 4.0-51.3 [facility] Comment on above: Result Comment: CUT- OFF POINTS HAVE BEEN ESTABLISHED BASED ON THE FOURTH UNIVERSAL DEFINITIONS OF MYOCARDIAL INFARCTION. THE UPPER REFERENCE LIMIT (URL) OF TROPONIN, DEFINED THE 99TH PERCENTILE OF cTnI DISTRIBUTION IN A REFERENCE POPULATION, HAS BEEN CONFIRMED THE DECISION THRESHOLD FOR RI DIAGNOSIS. Performed By: #### P OCGLUC #### [facility] [address] [place] [address] Dr. Maru Disla REDD 137 ng/mL Critically high 9-82 [facility] Comment on above: Performed By: #### P OCGLUC #### [facility] [address] [place] [address] Dr. Maru Disla CBC AUTO DIFFon 04-09-2022 BASO # 0.0 103/ul Normal 0.0-0.1 [facility] Comment on above: Performed By: #### A BG #### [facility] [address] [place] [address] Dr. Maru Disla Basophils/100 WBC (Bld) 0.2 % Normal 0.2-2.0 [facility] Comment on above: Performed By: #### A BG #### [facility] [address] [place] [address] Dr. Maru Disla EO # 0.0 103/ul Normal 0.0-0.7 [facility] Comment on above: Performed By: #### A BG #### [facility] [address] [place] [address] Dr. Maru Disla Eosinophils/100 WBC (Bld) 0.0 % Critically low 0.9-7.0 [facility] Comment on above: Performed By: #### A BG #### [facility] [address] [place] [address] Dr. Maru Disla Erythrocyte distribution width (RBC) [Ratio] 13.4 % Normal 11.0-15.0 [facility] Comment on above: Performed By: #### A BG #### [facility] [address] [place] [address] Dr. Maru Disla Hematocrit (Bld) [Volume fraction] 48.3 % Critically high 36.0-48.0 [facility] Comment on above: Performed By: #### A BG #### [facility] [address] [address] [address] Maru Disla Hemoglobin (Bld) [Mass/Vol] 15.3 g/dL Normal 12.0-16.0 [facility] Comment on above: Performed By: #### A BG #### [facility] [address] [place] [address] Dr. Maru Disla IG # 0.11 10e3/ul Critically high 0.00-0.03 [facility] Comment on above: Performed By: #### A BG #### [facility] [address] [place] [address] Dr. Maru Disla IG % 0.6 % Critically high 0.0-0.5 [facility] Comment on above: Performed By: #### A BG #### [facility] [address] [place] [address] Dr. Maru Disla LYMPH # 1.1 103/ul Critically low 1.2-3.[address] [facility] Comment on above: Performed By: #### A BG #### [facility] [address] [place] [address] Dr. Maru Disla Lymphocytes/100 WBC (Bld) 6.1 % Critically low 20.5-60.0 [facility] Comment on above: Performed By: #### A BG #### [facility] [address] [place] [address] Dr. Maru Disla MANUAL DIFF REQ NO Normal [facility] Comment on above: Performed By: #### A BG #### [facility] [address] [place] [address] Dr. Maru Disla MCH (RBC) [Entitic mass] 29.8 pg Normal 26.7-34.0 [facility] Comment on above: Performed By: #### A BG #### [facility] [address] [place] [address] Dr. Maru Disla MCHC (RBC) [Mass/Vol] 31.7 g/dL Normal 29.9-35.[address] [facility] Comment on above: Performed By: #### A BG #### [facility] [address] [address] [address] Maru Disla MCV (RBC) [Entitic vol] 94.2 fL Normal 81.0-99.0 [facility] Comment on above: Performed By: #### A BG #### [facility] [address] [address] [address] Maru Disla MONO # 0.7 103/ul Normal 0.3-0.8 [facility] Comment on above: Performed By: #### A BG #### [facility] [address] [address] [address] Maru Disla Monocytes/100 WBC (Bld) 3.9 % Normal 1.7-12.0 [facility] Comment on above: Performed By: #### A BG #### [facility] [address] [address] [address] Maru Disla NEUT # 15.3 103/ul Critically high 1.4-6.5 [facility] Comment on above: Performed By: #### A BG #### [facility] [address] [address] [address] Maru Disla Neutrophils/100 WBC (Bld) 89.2 % Critically high 43.0-75.0 [facility] Comment on above: Performed By: #### A BG #### [facility] [address] [address] [address] Maru Disla Platelet mean volume (Bld) [Entitic vol] 10.4 fL Normal 9.5-13.5 [facility] Comment on above: Performed By: #### A BG #### [facility] [address] [address] [address] Maru Disla PLT 311 103/ul Normal 150-[address] [facility] Comment on above: Performed By: #### A BG #### [facility] [address] [address] [address] Maru Disla RBC 5.13 106/ul Normal 4.20-5.[address] [facility] Comment on above: Performed By: #### A BG #### [facility] [address] [place], [place] [address] Dr. Maru Disla WBC 17.2 103/ul Critically high 4.0-11.0 [facility] Comment on above: Performed By: #### A BG #### [facility] [address] [place], [place] [address] Dr. Maru Disla ECHOCARDIO M/2D COMPLETEon 1 06-09-2021 ECHOCARDIO M/2D COMPLETE Patient: RODDY DIOR Exam Date: 04/09/2022 : 1960 Gender:F Ordering : DR TERI BLOCK . Admission #: [id number] Family : Order #: [id number] CLICK HERE TO VIEW EXAM ECHOCARDIOGRAM REPORT [...] Subramanian M.D. on 04/10/2022 at 15:44 Normal [facility] POINT OF CARE GLUCOSEon 11-0 Glucose [Mass/Vol] 171 mg/dL Critically high 74-106 [facility] Comment on above: Performed By: #### P OCGLUC #### [facility] [address] [place] [address] Dr. Maru Disla Glucose [Mass/Vol] 97 mg/dL Normal 74-106 [facility] Comment on above: Performed By: #### M ALBR #### [facility] [address] [address] [address] Maru Disla PROF CHEM 8 (BAS METB)on Anion gap [Moles/Vol] 9.1 mmol/L Normal [facility] Comment on above: Performed By: #### P OCGLUC #### [facility] [address] [place] [address] Dr. Maru Disla Calcium [Mass/Vol] 8.7 mg/dL Normal 8.5-10.1 [facility] Comment on above: Performed By: #### P OCGLUC #### [facility] [address] [place] [address] Dr. Maru Disla Chloride [Moles/Vol] 104 mmol/L Normal 98-107 [facility] Comment on above: Performed By: #### P OCGLUC #### [facility] [address] [place] [address] Dr. Maru Disla CO2 [Moles/Vol] 33.2 mmol/L Critically high 21.0-32.0 [facility] Comment on above: Performed By: #### P OCGLUC #### [facility] [address] [place] [address] Dr. Maru Disla Creatinine [Mass/Vol] 0.87 mg/dL Normal 0.55-1.02 [facility] Comment on above: Performed By: #### P OCGLUC #### [facility] [address] [place] [address] Dr. Maru Disla EGFR-AF LEBANESE >60 Normal >=60 [facility] Comment on above: Performed By: #### P OCGLUC #### [facility] [address] [address] [address] Maru Disla EGFR-NON AF LEBANESE >60 Normal >=60 [facility] Comment on above: Performed By: #### P OCGLUC #### [facility] [address] [place] [address] Dr. Maru Disla Glucose [Mass/Vol] 115 mg/dL Critically high 74-106 [facility] Comment on above: Performed By: #### P OCGLUC #### [facility] [address] [address] [address] Maru Disla Potassium [Moles/Vol] 4.3 mmol/L Normal 3.5-5.1 [facility] Comment on above: Performed By: #### P OCGLUC #### [facility] [address] [address] [address] Maru Disla Sodium [Moles/Vol] 142 mmol/L Normal 136-145 [facility] Comment on above: Performed By: #### P OCGLUC #### [facility] [address] [address] [address] Maru Disla Urea nitrogen [Mass/Vol] 36.0 mg/dL Critically high 7.0-18.0 [facility] Comment on above: Performed By: #### P OCGLUC #### [facility] [address] [address] [address] Maru Disla Urea nitrogen/Creatinine [Mass ratio] 41.4 mg/mg Normal [facility] [facility] Comment on above: Performed By: #### P OCGLUC #### [facility] [address] [address] [address] Maru Disla CARDIAC BREANNE 3-6on 2 CK [Catalytic activity/Vol] 381 U/L Critically high 26-192 [facility] Comment on above: Performed By: #### C MREP #### [facility] [address] [address] [address] Maru Disla CK.MB [Mass/Vol] 7.91 ng/mL Critically high <=3.60 [facility] Comment on above: Performed By: #### C MREP #### [facility] [address] [address] [address] Maru Disla HSTROP 766.1 pg/mL Critically high 4.0-51.3 [facility] Comment on above: Result Comment: CUT- OFF POINTS HAVE BEEN ESTABLISHED BASED ON THE FOURTH UNIVERSAL DEFINITIONS OF MYOCARDIAL INFARCTION. THE UPPER REFERENCE LIMIT (URL) OF TROPONIN, DEFINED THE 99TH PERCENTILE OF cTnI DISTRIBUTION IN A REFERENCE POPULATION, HAS BEEN CONFIRMED THE DECISION THRESHOLD FOR RI DIAGNOSIS. Performed By: #### C MREP #### [facility] [address] [address] [address] Maru Disla CK [Catalytic activity/Vol] 356 U/L Critically high 26-192 [facility] Comment on above: Performed By: #### C MREP #### [facility] [address] [address] [address] Maru Disla CK.MB [Mass/Vol] 8.66 ng/mL Critically high <=3.60 [facility] Comment on above: Performed By: #### C MREP #### [facility] [address] [address] [address] Maru Disla HSTROP 610.6 pg/mL Critically high 4.0-51.3 [facility] Comment on above: Result Comment: CUT- OFF POINTS HAVE BEEN ESTABLISHED BASED ON THE FOURTH UNIVERSAL DEFINITIONS OF MYOCARDIAL INFARCTION. THE UPPER REFERENCE LIMIT (URL) OF TROPONIN, DEFINED THE 99TH PERCENTILE OF cTnI DISTRIBUTION IN A REFERENCE POPULATION, HAS BEEN CONFIRMED THE DECISION THRESHOLD FOR RI DIAGNOSIS. Performed By: #### C MREP #### [facility] [address] [address] [address] Maru Disla CARDIAC BREANNE ADMITon 022 CK [Catalytic activity/Vol] 381 U/L Critically high 26-192 [facility] Comment on above: Performed By: #### C MADM #### [facility] [address] [address] [address] Maru Disla CK.MB [Mass/Vol] 8.07 ng/mL Critically high <=3.[address] [facility] Comment on above: Performed By: #### C MADM #### [facility] [address] [address] [address] Maru Disla HSTROP 220.2 pg/mL Critically high 4.0-51.3 [facility] Comment on above: Result Comment: CUT- OFF POINTS HAVE BEEN ESTABLISHED BASED ON THE FOURTH UNIVERSAL DEFINITIONS OF MYOCARDIAL INFARCTION. THE UPPER REFERENCE LIMIT (URL) OF TROPONIN, DEFINED THE 99TH PERCENTILE OF cTnI DISTRIBUTION IN A REFERENCE POPULATION, HAS BEEN CONFIRMED THE DECISION THRESHOLD FOR RI DIAGNOSIS. Performed By: #### C MADM #### [facility] [address] [address] [address] Maru Disla REDD 269 ng/mL Critically high 9-82 [facility] Comment on above: Performed By: #### C MADM #### [facility] [address] [address] [address] Maru Disla CBC AUTO DIFFon 04-08-2022 BASO # 0.0 103/ul Normal 0.0-0.1 [facility] Comment on above: Performed By: #### M ALBR #### [facility] [address] [address] [address] Maru Disla Basophils/100 WBC (Bld) 0.2 % Normal 0.2-2.0 [facility] Comment on above: Performed By: #### M ALBR #### [facility] [address] [place] [address] Dr. Maru Disla EO # 0.0 103/ul Normal 0.0-0.7 [facility] Comment on above: Performed By: #### M ALBR #### [facility] [address] [place] [address] Dr. Maru Disla Eosinophils/100 WBC (Bld) 0.0 % Critically low 0.9-7.0 [facility] Comment on above: Performed By: #### M ALBR #### [facility] [address] [place] [address] Dr. Maru Disla Erythrocyte distribution width (RBC) [Ratio] 13.4 % Normal 11.0-15.0 [facility] Comment on above: Performed By: #### M ALBR #### [facility] [address] [address] [address] Maru Disla Hematocrit (Bld) [Volume fraction] 52.7 % Critically high 36.0-48.0 [facility] Comment on above: Performed By: #### M ALBR #### [facility] [address] [place] [address] Dr. Maru Disla Hemoglobin (Bld) [Mass/Vol] 16.8 g/dL Critically high 12.0-16.0 [facility] Comment on above: Performed By: #### M ALBR #### [facility] [address] [place] [address] Dr. Maru Disla IG # 0.13 10e3/ul Critically high 0.00-0.03 [facility] Comment on above: Performed By: #### M ALBR #### [facility] [address] [place] [address] Dr. Maru Disla IG % 0.6 % Critically high 0.0-0.5 [facility] Comment on above: Performed By: #### M ALBR #### [facility] [address] [place] [address] Dr. Maru Disla LYMPH # 0.8 103/ul Critically low 1.2-3.[address] [facility] Comment on above: Performed By: #### M ALBR #### [facility] [address] [place] [address] Dr. Maru Disla Lymphocytes/100 WBC (Bld) 3.4 % Critically low 20.5-60.0 [facility] Comment on above: Performed By: #### M ALBR #### [facility] [address] [place] [address] Dr. Maru Disla MANUAL DIFF REQ NO Normal [facility] Comment on above: Performed By: #### M ALBR #### [facility] [address] [place] [address] Dr. Maru Disla MCH (RBC) [Entitic mass] 29.4 pg Normal 26.7-34.0 [facility] Comment on above: Performed By: #### M ALBR #### [facility] [address] [place] [address] Dr. Maru Disla MCHC (RBC) [Mass/Vol] 31.9 g/dL Normal 29.9-35.2 [facility] Comment on above: Performed By: #### M ALBR #### [facility] [address] [place] [address] Dr. Maru Disla MCV (RBC) [Entitic vol] 92.1 fL Normal 81.0-99.0 [facility] Comment on above: Performed By: #### M ALBR #### [facility] [address] [place] [address] Dr. Maru Disla MONO # 0.8 103/ul Normal 0.3-0.8 [facility] Comment on above: Performed By: #### M ALBR #### [facility] [address] [place] [address] Dr. Maru Disla Monocytes/100 WBC (Bld) 3.4 % Normal 1.7-12.0 [facility] Comment on above: Performed By: #### M ALBR #### [facility] [address] [place] [address] Dr. Maru Disla NEUT # 21.8 103/ul Critically high 1.4-6.5 [facility] Comment on above: Performed By: #### M ALBR #### [facility] [address] [place] [address] Dr. Maru Disla Neutrophils/100 WBC (Bld) 92.4 % Critically high 43.0-75.0 [facility] Comment on above: Performed By: #### M ALBR #### [facility] [address] [place] [address] Dr. Maru Disla Platelet mean volume (Bld) [Entitic vol] 10.4 fL Normal 9.5-13.5 [facility] Comment on above: Performed By: #### M ALBR #### [facility] [address] [place] [address] Dr. Maru Disla PLT 335 103/ul Normal 150-[address] [facility] Comment on above: Performed By: #### M ALBR #### [facility] [address] [place] [address] Dr. Maru Disla RBC 5.72 106/ul Critically high 4.20-5.40 [facility] Comment on above: Performed By: #### M ALBR #### [facility] [address] [place] [address] Dr. Maru Disla WBC 23.5 103/ul Critically high 4.0-11.0 [facility] Comment on above: Performed By: #### M ALBR #### [facility] [address] [address] [address] Maru Disla POINT OF CARE GLUCOSEon Glucose [Mass/Vol] 275 mg/dL Critically high [address] [place] [address] Comment on above: Performed By: #### P OCGLUC #### [facility] [address] [address] [address] Maru Disla Glucose [Mass/Vol] 161 mg/dL Critically high [address] [place] [address] Comment on above: Performed By: #### B MP #### [facility] [address] [address] [address] Maru Disla Glucose [Mass/Vol] 140 mg/dL Critically high [address] [place] [address] Comment on above: Performed By: #### P OCGLUC #### [facility] [address] [place] [address] Dr. Maru Disla Glucose [Mass/Vol] 219 mg/dL Critically high [address] [place] [address] Comment on above: Performed By: #### P OCGLUC #### [facility] [address] [address] [address] Maru Disla PROF CHEM 8 (BAS METB)on Anion gap [Moles/Vol] 14.0 mmol/L Normal [facility] Comment on above: Performed By: #### M ALBR #### [facility] [address] [address] [address] Maru Disla Calcium [Mass/Vol] 9.3 mg/dL Normal 8.5-10.1 [facility] Comment on above: Performed By: #### M ALBR #### [facility] [address] [place] [address] Dr. Maru Disla Chloride [Moles/Vol] 98 mmol/L Normal 98-107 [facility] Comment on above: Performed By: #### M ALBR #### [facility] [address] [address] [address] Maru Disla CO2 [Moles/Vol] 30.5 mmol/L Normal 21.0-32.0 [facility] Comment on above: Performed By: #### M ALBR #### [facility] [address] [address] [address] Maru Disla Creatinine [Mass/Vol] 1.09 mg/dL Critically high 0.55-1.02 [facility] Comment on above: Performed By: #### M ALBR #### [facility] [address] [address] [address] Maru Disla EGFR-AF LEBANESE >60 Normal >=60 [facility] Comment on above: Performed By: #### M ALBR #### [facility] [address] [address] [address] Maru Disla EGFR-NON AF LEBANESE 51 mL/min/1.73m2 Critically low >=60 [facility] Comment on above: Performed By: #### M ALBR #### [facility] [address] [address] [address] Maru Disla Glucose [Mass/Vol] 242 mg/dL Critically high 74-106 [facility] Comment on above: Performed By: #### M ALBR #### [facility] [address] [address] [address] Maru Disla Potassium [Moles/Vol] 3.5 mmol/L Normal 3.5-5.1 [facility] Comment on above: Performed By: #### M ALBR #### [facility] [address] [address] [address] Maru Disla Sodium [Moles/Vol] 139 mmol/L Normal 136-145 [facility] Comment on above: Performed By: #### M ALBR #### [facility] [address] [address] [address] Maru Disla Urea nitrogen [Mass/Vol] 32.0 mg/dL Critically high 7.0-18.0 [facility] Comment on above: Performed By: #### M ALBR #### [facility] [address] [address] [address] Maru Disla Urea nitrogen/Creatinine [Mass ratio] 29.4 mg/mg Normal [facility] Comment on above: Performed By: #### M ALBR #### [facility] [address] [place] [address] Dr. Maru Disla CBC AUTO DIFFon 04-07-2022 BASO # 0.0 103/ul Normal 0.0-0.1 [facility] Comment on above: Performed By: #### P OCGLUC #### [facility] [address] [place] [address] Dr. Maru Disla Basophils/100 WBC (Bld) 0.2 % Normal 0.2-2.0 [facility] Comment on above: Performed By: #### P OCGLUC #### [facility] [address] [place] [address] Dr. Maru Disla EO # 0.0 103/ul Normal 0.0-0.7 [facility] Comment on above: Performed By: #### P OCGLUC #### [facility] [address] [place] [address] Dr. Maru Disla Eosinophils/100 WBC (Bld) 0.0 % Critically low 0.9-7.0 [facility] Comment on above: Performed By: #### P OCGLUC #### [facility] [address] [place] [address] Dr. Maru Disla Erythrocyte distribution width (RBC) [Ratio] 13.6 % Normal 11.0-15.0 [facility] Comment on above: Performed By: #### P OCGLUC #### [facility] [address] [place] [address] Dr. Maru Disla Hematocrit (Bld) [Volume fraction] 48.1 % Critically high 36.0-48.0 [facility] Comment on above: Performed By: #### P OCGLUC #### [facility] [address] [place] [address] Dr. Maru Disla Hemoglobin (Bld) [Mass/Vol] 14.7 g/dL Normal 12.0-16.0 [facility] Comment on above: Performed By: #### P OCGLUC #### [facility] [address] [place] [address] Dr. Maru Disla IG # 0.16 10e3/ul Critically high 0.00-0.03 [facility] Comment on above: Performed By: #### P OCGLUC #### [facility] [address] [address] [address] Maru Disla IG % 0.6 % Critically high 0.0-0.5 [facility] Comment on above: Performed By: #### P OCGLUC #### [facility] [address] [address] [address] Maru Disla LYMPH # 1.0 103/ul Critically low 1.2-3.[address] [facility] Comment on above: Performed By: #### P OCGLUC #### [facility] [address] [place] [address] Dr. Maru Disla Lymphocytes/100 WBC (Bld) 4.1 % Critically low 20.5-60.0 [facility] Comment on above: Performed By: #### P OCGLUC #### [facility] [address] [place] [address] Dr. Maru Disla MANUAL DIFF REQ NO Normal [facility] Comment on above: Performed By: #### P OCGLUC #### [facility] [address] [place] [address] Dr. Maru Disla MCH (RBC) [Entitic mass] 29.4 pg Normal 26.7-34.0 [facility] Comment on above: Performed By: #### P OCGLUC #### [facility] [address] [place] [address] Dr. Maru Disla MCHC (RBC) [Mass/Vol] 30.6 g/dL Normal 29.9-35.2 [facility] Comment on above: Performed By: #### P OCGLUC #### [facility] [address] [place] [address] Dr. Maru Disla MCV (RBC) [Entitic vol] 96.2 fL Normal 81.0-99.0 [facility] Comment on above: Performed By: #### P OCGLUC #### [facility] [address] [place] [address] Dr. Maru Disla MONO # 0.8 103/ul Normal 0.3-0.8 [facility] Comment on above: Performed By: #### P OCGLUC #### [facility] [address] [place] [address] Dr. Maru Disla Monocytes/100 WBC (Bld) 3.2 % Normal 1.7-12.0 [facility] Comment on above: Performed By: #### P OCGLUC #### [facility] [address] [place] [address] Dr. Maru Disla NEUT # 23.1 103/ul Critically high 1.4-6.5 [facility] Comment on above: Performed By: #### P OCGLUC #### [facility] [address] [place] [address] Dr. Maru Disla Neutrophils/100 WBC (Bld) 91.9 % Critically high 43.0-75.0 [facility] Comment on above: Performed By: #### P OCGLUC #### [facility] [address] [place] [address] Dr. Maru Disla Platelet mean volume (Bld) [Entitic vol] 10.5 fL Normal 9.5-13.5 [facility] Comment on above: Performed By: #### P OCGLUC #### [facility] [address] [place] [address] Dr. Maru Disla PLT 300 103/ul Normal 150-[address] [facility] Comment on above: Performed By: #### P OCGLUC #### [facility] [address] [place] [address] Dr. Maru Disla RBC 5.00 106/ul Normal 4.20-5.[address] [facility] Comment on above: Performed By: #### P OCGLUC #### [facility] [address] [place] [address] Dr. aMru Disla WBC 25.1 103/ul Critically high 4.0-11.0 [facility] Comment on above: Performed By: #### P OCGLUC #### [facility] [address] [place] [address] Dr. Maru Disla POINT OF CARE GLUCOSEon 11-0 Glucose [Mass/Vol] 247 mg/dL Critically high 74-106 [facility] Comment on above: Performed By: #### B MP #### [facility] [address] [place] [address] Dr. Maru Disla Glucose [Mass/Vol] 182 mg/dL Critically high 74-106 [facility] Comment on above: Performed By: #### A BG #### [facility] [address] [place] [address] Dr. Maru Disla Glucose [Mass/Vol] 177 mg/dL Critically high -106 [facility] Comment on above: Performed By: #### P OCGLUC #### [facility] [address] [place] [address] Dr. Maru Disla Glucose [Mass/Vol] 191 mg/dL Critically high 74-106 [facility] Comment on above: Performed By: #### P OCGLUC #### [facility] [address] [place] [address] Dr. Maru Disla PROF CHEM 8 (BAS METB)on Anion gap [Moles/Vol] 11.4 mmol/L Normal [facility] Comment on above: Performed By: #### M ALBR #### [facility] [address] [place] [address] Dr. Maru Disla Calcium [Mass/Vol] 8.9 mg/dL Normal 8.5-10.1 [facility] Comment on above: Performed By: #### M ALBR #### [facility] [address] [place] [address] Dr. Maru Disla Chloride [Moles/Vol] 108 mmol/L Critically high 98-107 [facility] Comment on above: Performed By: #### M ALBR #### [facility] [address] [place] [address] Dr. Maru Disla CO2 [Moles/Vol] 27.9 mmol/L Normal 21.0-32.0 [facility] Comment on above: Performed By: #### M ALBR #### [facility] [address] [place] [address] Dr. Maru Disla Creatinine [Mass/Vol] 0.84 mg/dL Normal 0.55-1.02 [facility] Comment on above: Performed By: #### M ALBR #### [facility] [address] [place] [address] Dr. Maru Disla EGFR-AF LEBANESE >60 Normal >=60 [facility] Comment on above: Performed By: #### M ALBR #### [facility] [address] [place] [address] Dr. Maru Disla EGFR-NON AF LEBANESE >60 Normal >=60 [facility] Comment on above: Performed By: #### M ALBR #### [facility] [address] [place] [address] Dr. Maru Disla Glucose [Mass/Vol] 202 mg/dL Critically high 74-106 [facility] Comment on above: Performed By: #### M ALBR #### [facility] [address] [place] [address] Dr. Maru Disla Potassium [Moles/Vol] 4.3 mmol/L Normal 3.5-5.1 [facility] Comment on above: Performed By: #### M ALBR #### [facility] [address] [place] [address] Dr. Maru Disla Sodium [Moles/Vol] 143 mmol/L Normal 136-145 [facility] Comment on above: Performed By: #### M ALBR #### [facility] [address] [place] [address] Dr. Maru Disla Urea nitrogen [Mass/Vol] 26.0 mg/dL Critically high 7.0-18.0 [facility] Comment on above: Performed By: #### M ALBR #### [facility] [address] [place] [address] Dr. Maru Disla Urea nitrogen/Creatinine [Mass ratio] 31.0 mg/mg Normal [facility] Comment on above: Performed By: #### M ALBR #### [facility] [address] [place] [address] Dr. Maru Disla CBC AUTO DIFFon 04-06-2022 BASO # 0.0 103/ul Normal 0.0-0.1 [facility] Comment on above: Performed By: #### B MP #### [facility] [address] [place] [address] Dr. Maru Disla Basophils/100 WBC (Bld) 0.1 % Critically low 0.2-2.0 [facility] Comment on above: Performed By: #### B MP #### [facility] [address] [place] [address] Dr. Maru Disla EO # 0.0 103/ul Normal 0.0-0.7 [facility] Comment on above: Performed By: #### B MP #### [facility] [address] [place] [address] Dr. Maru Disla Eosinophils/100 WBC (Bld) 0.1 % Critically low 0.9-7.0 [facility] Comment on above: Performed By: #### B MP #### [facility] [address] [place] [address] Dr. Maru Disla Erythrocyte distribution width (RBC) [Ratio] 13.4 % Normal 11.0-15.0 [facility] Comment on above: Performed By: #### B MP #### [facility] [address] [place] [address] Dr. Maru Disla Hematocrit (Bld) [Volume fraction] 48.5 % Critically high 36.0-48.0 [facility] Comment on above: Performed By: #### B MP #### [facility] [address] [place] [address] Dr. Maru Disla Hemoglobin (Bld) [Mass/Vol] 15.5 g/dL Normal 12.0-16.0 [facility] Comment on above: Performed By: #### B MP #### [facility] [address] [place] [address] Dr. Maru Disla IG # 0.09 10e3/ul Critically high 0.00-0.03 [facility] Comment on above: Performed By: #### B MP #### [facility] [address] [place] [address] Dr. Maru Disla IG % 0.5 % Normal 0.0-0.5 [facility] Comment on above: Performed By: #### B MP #### [facility] [address] [place] [address] Dr. Maru Disla LYMPH # 0.9 103/ul Critically low 1.2-3.[address] [facility] Comment on above: Performed By: #### B MP #### [facility] [address] [place] [address] Dr. Maru Disla Lymphocytes/100 WBC (Bld) 4.5 % Critically low 20.5-60.0 [facility] Comment on above: Performed By: #### B MP #### [facility] [address] [place], [place] [address] Dr. Maru Disla MANUAL DIFF REQ NO Normal [facility] Comment on above: Performed By: #### B MP #### [facility] [address] [place] [address] Dr. Maru Disla MCH (RBC) [Entitic mass] 30.0 pg Normal 26.7-34.0 [facility] Comment on above: Performed By: #### B MP #### [facility] [address] [place] [address] Dr. Maru Disla MCHC (RBC) [Mass/Vol] 32.0 g/dL Normal 29.9-35.2 [facility] Comment on above: Performed By: #### B MP #### [facility] [address] [place] [address] Dr. Maru Disla MCV (RBC) [Entitic vol] 93.8 fL Normal 81.0-99.0 [facility] Comment on above: Performed By: #### B MP #### [facility] [address] [place] [address] Dr. Maru Disla MONO # 0.7 103/ul Normal 0.3-0.8 [facility] Comment on above: Performed By: #### B MP #### [facility] [address] [place] [address] Dr. Maru Disla Monocytes/100 WBC (Bld) 3.5 % Normal 1.7-12.0 [facility] Comment on above: Performed By: #### B MP #### [facility] [address] [address] [address] Maru Disla NEUT # 18.2 103/ul Critically high 1.4-6.5 [facility] Comment on above: Performed By: #### B MP #### [facility] [address] [address] [address] Maru Disla Neutrophils/100 WBC (Bld) 91.3 % Critically high 43.0-75.0 [facility] Comment on above: Performed By: #### B MP #### [facility] [address] [address] [address] Maru Disla Platelet mean volume (Bld) [Entitic vol] 11.2 fL Normal 9.5-13.5 [facility] Comment on above: Performed By: #### B MP #### [facility] [address] [place] [address] Dr. Maru Disla PLT 232 103/ul Normal 150-450 [facility] Comment on above: Performed By: #### B MP #### [facility] [address] [address] [address] Maru Disla RBC 5.17 106/ul Normal 4.20-5.40 [facility] Comment on above: Performed By: #### B MP #### [facility] [address] [place] [address] Dr. Maru Disla WBC 19.9 103/ul Critically high 4.0-11.0 [facility] Comment on above: Performed By: #### B MP #### [facility] [address] [place] [address] Dr. Maru Disla POINT OF CARE GLUCOSEon - Glucose [Mass/Vol] 199 mg/dL Critically high 74-106 [facility] Comment on above: Performed By: #### P OCGLUC #### [facility] [address] [place] [address] Dr. Maru Disla Glucose [Mass/Vol] 109 mg/dL Critically high 74-106 [facility] Comment on above: Performed By: #### A BG #### [facility] [address] [address] [address] Maru Disla Glucose [Mass/Vol] 253 mg/dL Critically high [facility]106 [facility] Comment on above: Performed By: #### P OCGLUC #### [facility] [address] [address] [address] Maru Disla Glucose [Mass/Vol] 194 mg/dL Critically high -106 [facility] Comment on above: Performed By: #### B MP #### [facility] [address] [address] [address] Maru Disla PROF CHEM 8 (BAS METB)on Anion gap [Moles/Vol] 11.2 mmol/L Normal [facility] Comment on above: Performed By: #### B MP #### [facility] [address] [address] [address] Maru Disla Calcium [Mass/Vol] 8.8 mg/dL Normal 8.5-10.1 [facility] Comment on above: Performed By: #### B MP #### [facility] [address] [address] [address] Maru Disla Chloride [Moles/Vol] 105 mmol/L Normal 98-107 [facility] Comment on above: Performed By: #### B MP #### [facility] [address] [address] [address] Maru Disla CO2 [Moles/Vol] 26.8 mmol/L Normal 21.0-32.0 [facility] Comment on above: Performed By: #### B MP #### [facility] [address] [address] [address] Maru Disla Creatinine [Mass/Vol] 0.66 mg/dL Normal 0.55-1.02 [facility] Comment on above: Performed By: #### B MP #### [facility] [address] [address] [address] Maru Disla EGFR-AF LEBANESE >60 Normal >=60 [facility] Comment on above: Performed By: #### B MP #### [facility] [address] [address] [address] Maru Disla EGFR-NON AF LEBANESE >60 Normal >=60 [facility] Comment on above: Performed By: #### B MP #### [facility] [address] [place], [place] [address] Dr. Maru Disla Glucose [Mass/Vol] 191 mg/dL Critically high 74-106 [facility] Comment on above: Performed By: #### B MP #### [facility] [address] [address] [address] Maru Disla Potassium [Moles/Vol] 5.0 mmol/L Normal 3.5-5.1 [facility] Comment on above: Performed By: #### B MP #### [facility] [address] [address] [address] Maru Disla Sodium [Moles/Vol] 138 mmol/L Normal 136-145 [facility] Comment on above: Performed By: #### B MP #### [facility] [address] [address] [address] Maru Disla Urea nitrogen [Mass/Vol] 21.0 mg/dL Critically high 7.0-18.0 [facility] Comment on above: Performed By: #### B MP #### [facility] [address] [address] [address] Maru Disla Urea nitrogen/Creatinine [Mass ratio] 31.8 mg/mg Normal [facility] Comment on above: Performed By: #### B MP #### [facility] [address] [address] [address] Maru Disla XR CHEST 2 Von [...] by: CORINE ANGELA Date: 2022-04-06 07:14 Normal [facility] BLOOD GASES BTYon 04-05-2022 02 MODE NASAL CANNULA Normal [facility] Comment on above: Performed By: #### A BG #### [facility] [address] [place] [address] Dr. Maru Disla ALLENS TEST Positive [facility] Comment on above: Performed By: #### A BG #### [facility] [address] [place] [address] Dr. Maru Disla Base excess Calc (Bld) [Moles/Vol] -1.6000 mmol/L Normal -2.0-2.0 [facility] Comment on above: Performed By: #### A BG #### [facility] [address] [place] [address] Dr. Maru Disla BIPAP PRESSURE [facility] Comment on above: Performed By: #### A BG #### [facility] [address] [place] [address] Dr. Maru Disla CPAP [facility] Comment on above: Performed By: #### A BG #### [facility] [address] [place] [address] Dr. Maru Disla FIO2 [facility] Comment on above: Performed By: #### A BG #### [facility] [address] [place] [address] Dr. Maru Disla HCO3 (Bld) [Moles/Vol] 24.0 mmol/L Normal 22.0-26.0 [facility] Comment on above: Performed By: #### A BG #### [facility] [address] [place] [address] Dr. Maru Disla LPM 2 [facility] Comment on above: Performed By: #### A BG #### [facility] [address] [place] [address] Dr. Maru Disla MINUTE VOLUME Normal [facility] Comment on above: Performed By: #### A BG #### [facility] [address] [place] [address] Dr. Maru Disla Oxygen (Bld) [Partial pressure] 56.1 mm[Hg] Critically low 80.0-100.0 [facility] Comment on above: Performed By: #### A BG #### [facility] [address] [place] [address] Dr. Maru Disla Oxygen saturation in Blood 89.9 % Critically low 95.0-100.0 [facility] Comment on above: Performed By: #### A BG #### [facility] [address] [place] [address] Dr. Maru Disla PCO2 43.3 mmHg Normal 35.0-45.0 [facility] Comment on above: Performed By: #### A BG #### [facility] [address] [place] [address] Dr. Maru Disla PEEP [facility] Comment on above: Performed By: #### A BG #### [facility] [address] [place] [address] Dr. Maru Disla pH (Bld) 7.352 [pH] Normal 7.350-7.450 [facility] Comment on above: Performed By: #### A BG #### [facility] [address] [place] [address] Dr. Maru Disla PIP [facility] Comment on above: Performed By: #### A BG #### [facility] [address] [place] [address] Dr. Maru Disla PS [facility] Comment on above: Performed By: #### A BG #### [facility] [address] [place] [address] Dr. Maru Disla PUNCTURE SITE LR [place] [facility] Comment on above: Performed By: #### A BG #### [facility] [address] [place] [address] Dr. Maru Disla RATE [facility] Comment on above: Performed By: #### A BG #### [facility] [address] [place] [address] Dr. Maru Disla VENT MODE Normal [facility] Comment on above: Performed By: #### A BG #### [facility] [address] [place] [address] [address] [facility] Comment on above: Performed By: #### A BG #### [facility] [address] [place] [address] Dr. Maru Disla BNPon 04-05-2022 Natriuretic peptide B (Bld) [Mass/Vol] 471.0 pg/mL Normal <=900.0 [facility] Comment on above: Performed By: #### P OCGLUC #### [facility] [address] [place] [address] Dr. Maru Disla CBC AUTO DIFFon 04-05-2022 BASO # 0.0 103/ul Normal 0.0-0.1 [facility] Comment on above: Performed By: #### B MP #### [facility] [address] [place] [address] Dr. Maru Disla Basophils/100 WBC (Bld) 0.3 % Normal 0.2-2.0 [facility] Comment on above: Performed By: #### B MP #### [facility] [address] [place] [address] Dr. Maru Disla EO # 0.0 103/ul Normal 0.0-0.7 [facility] Comment on above: Performed By: #### B MP #### [facility] [address] [place] [address] Dr. Maru Disla Eosinophils/100 WBC (Bld) 0.0 % Critically low 0.9-7.0 [facility] Comment on above: Performed By: #### B MP #### [facility] [address] [place] [address] Dr. Maru Disla Erythrocyte distribution width (RBC) [Ratio] 13.2 % Normal 11.0-15.0 [facility] Comment on above: Performed By: #### B MP #### [facility] [address] [place] [address] Dr. Maru Disla Hematocrit (Bld) [Volume fraction] 52.3 % Critically high 36.0-48.0 [facility] Comment on above: Performed By: #### B MP #### [facility] [address] [place] [address] Dr. Maru Disla Hemoglobin (Bld) [Mass/Vol] 16.6 g/dL Critically high 12.0-16.0 [facility] Comment on above: Performed By: #### B MP #### [facility] [address] [place] [address] Dr. Maru Disla IG # 0.05 10e3/ul Critically high 0.00-0.03 [facility] Comment on above: Performed By: #### B MP #### [facility] [address] [place] [address] Dr. Maru Disla IG % 0.4 % Normal 0.0-0.5 [facility] Comment on above: Performed By: #### B MP #### [facility] [address] [place] [address] Dr. Maru Disla LYMPH # 1.5 103/ul Normal 1.2-3.8 [facility] Comment on above: Performed By: #### B MP #### [facility] [address] [place] [address] Dr. Maru Disla Lymphocytes/100 WBC (Bld) 10.7 % Critically low 20.5-60.0 [facility] Comment on above: Performed By: #### B MP #### [facility] [address] [place] [address] Dr. Maru Disla MANUAL DIFF REQ NO Normal [facility] Comment on above: Performed By: #### B MP #### [facility] [address] [place] [address] Dr. Maru Disla MCH (RBC) [Entitic mass] 29.7 pg Normal 26.7-34.0 [facility] Comment on above: Performed By: #### B MP #### [facility] [address] [place] [address] Dr. Maru Disla MCHC (RBC) [Mass/Vol] 31.7 g/dL Normal 29.9-35.[address] [facility] Comment on above: Performed By: #### B MP #### [facility] [address] [address] [address] Maru Disla MCV (RBC) [Entitic vol] 93.6 fL Normal 81.0-99.0 [facility] Comment on above: Performed By: #### B MP #### [facility] [address] [address] [address] Maru Disla MONO # 1.5 103/ul Critically high 0.3-0.8 [facility] Comment on above: Performed By: #### B MP #### [facility] [address] [address] [address] Maru Disla Monocytes/100 WBC (Bld) 11.0 % Normal 1.7-12.0 [facility] Comment on above: Performed By: #### B MP #### [facility] [address] [address] [address] Maru Disla NEUT # 10.8 103/ul Critically high 1.4-6.5 [facility] Comment on above: Performed By: #### B MP #### [facility] [address] [address] [address] Maru Disla Neutrophils/100 WBC (Bld) 77.6 % Critically high 43.0-75.0 [facility] Comment on above: Performed By: #### B MP #### [facility] [address] [address] [address] Maru Disla Platelet mean volume (Bld) [Entitic vol] 10.1 fL Normal 9.5-13.5 [facility] Comment on above: Performed By: #### B MP #### [facility] [address] [address] [address] Maru Disla PLT 315 103/ul Normal 150-[address] [facility] Comment on above: Performed By: #### B MP #### [facility] [address] [address] [address] Maru Disla RBC 5.59 106/ul Critically high 4.20-5.40 [facility] Comment on above: Performed By: #### B MP #### [facility] [address] [place] [address] Dr. Maru Disla WBC 13.9 103/ul Critically high 4.0-11.0 [facility] Comment on above: Performed By: #### B MP #### [facility] [address] [place] [address] Dr. Maru Disla CULTURE BLOODon 04-05-2022 Microscopic examination of blood, culture Culture Observations: NO GROWTH AT 5 DAYS. Normal [facility] Comment on above: Performed By: #### B MP #### [facility] [address] [place] [address] Dr. Maru Disla Covid-19 PCR ([facility])on SARS-CoV-2 (COVID-19) RNA NICOLETTE+probe Ql (Unsp spec) Not detected Normal NOT DETECTED [facility] Comment on above: Result Comment: When [...] for this test is supported by the Career Information Specialist of Health and Human Service's declaration that [...] used). Performed By: #### M ALBR #### [facility] [address] [place] [address] Dr. Maru Disla INFLUENZA A AND B AGon 04-05 INFLUENZA A AG Negative Normal NEGATIVE SEE COMMENT [facility] Comment on above: Performed By: #### P OCGLUC #### [facility] [address] [place] [address] Dr. Maru Disla INFLUENZA B AG Negative Normal NEGATIVE SEE COMMENT [facility] Comment on above: Performed By: #### P OCGLUC #### [facility] [address] [place] [address] Dr. Maru Disla INTERNAL CONTROLS Within Normal Limits Normal Wi thin Normal Limits [facility] Comment on above: Performed By: #### P OCGLUC #### [facility] [address] [place] [address] Dr. Maru Disla LACTATE/LACTIC ACIDon 2021 Lactate [Moles/Vol] 3.1 mmol/L Critically high 0.4-1.9 [facility] Comment on above: Performed By: #### L ACT #### [facility] [address] [place] [address] Dr. Maru Disla Lactate [Moles/Vol] 3.1 mmol/L Critically high 0.4-1.9 [facility] Comment on above: Performed By: #### B MP #### [facility] [address] [place] [address] Dr. Maru Disla POINT OF CARE GLUCOSEon Glucose [Mass/Vol] 290 mg/dL Critically high -106 [facility] Comment on above: Performed By: #### M ALBR #### [facility] [address] [place] [address] Dr. Maru Disla Glucose [Mass/Vol] 309 mg/dL Critically high -106 [facility] Comment on above: Performed By: #### A BG #### [facility] [address] [place] [address] Dr. Maru Disla Glucose [Mass/Vol] 289 mg/dL Critically high -106 [facility] Comment on above: Performed By: #### P OCGLUC #### [facility] [address] [place] [address] Dr. Maru Disla Glucose [Mass/Vol] 325 mg/dL Critically high -106 [facility] Comment on above: Performed By: #### M ALBR #### [facility] [address] [place] [address] Dr. Maru Disla PROF 14(COMP METB)on 022 Albumin [Mass/Vol] 3.3 g/dL Critically low 3.4-5.0 [facility] Comment on above: Performed By: #### P OCGLUC #### [facility] [address] [address] [address] Maru Disla Albumin/Globulin [Mass ratio] 0.7 {ratio} Normal [facility] Comment on above: Performed By: #### P OCGLUC #### [facility] [address] [address] [address] Maru Disla ALP [Catalytic activity/Vol] 105 U/L Normal 46-116 [facility] Comment on above: Performed By: #### P OCGLUC #### [facility] [address] [place] [address] Dr. Maru Disla ALT [Catalytic activity/Vol] 15 U/L Normal 14-59 [facility] Comment on above: Performed By: #### P OCGLUC #### [facility] [address] [place] [address] Dr. Maru Disla Anion gap [Moles/Vol] 13.2 mmol/L Normal [facility] Comment on above: Performed By: #### P OCGLUC #### [facility] [address] [place] [address] Dr. Maru Disla AST [Catalytic activity/Vol] 12 U/L Critically low 15-37 [facility] Comment on above: Performed By: #### P OCGLUC #### [facility] [address] [address] [address] Maru Disla Bilirubin [Mass/Vol] 0.4 mg/dL Normal 0.2-1.0 [facility] Comment on above: Performed By: #### P OCGLUC #### [facility] [address] [place] [address] Dr. Maru Disla Calcium [Mass/Vol] 8.8 mg/dL Normal 8.5-10.1 [facility] Comment on above: Performed By: #### P OCGLUC #### [facility] [address] [place] [address] Dr. Maru Disla Chloride [Moles/Vol] 101 mmol/L Normal 98-107 [facility] Comment on above: Performed By: #### P OCGLUC #### [facility] [address] [address] [address] Maru Disla CO2 [Moles/Vol] 26.0 mmol/L Normal 21.0-32.0 [facility] Comment on above: Performed By: #### P OCGLUC #### [facility] [address] [address] [address] Maru Disla Creatinine [Mass/Vol] 1.03 mg/dL Critically high 0.55-1.02 [facility] Comment on above: Performed By: #### P OCGLUC #### [facility] [address] [address] [address] Maru Disla EGFR-AF LEBANESE >60 Normal >=60 [facility] Comment on above: Performed By: #### P OCGLUC #### [facility] [address] [address] [address] Maru Disla EGFR-NON AF LEBANESE 54 mL/min/1.73m2 Critically low >=60 [facility] Comment on above: Performed By: #### P OCGLUC #### [facility] [address] [address] [address] Maru Disla Globulin (S) [Mass/Vol] 4.5 g/dL Normal [facility] Comment on above: Performed By: #### P OCGLUC #### [facility] [address] [address] [address] Maru Disla Glucose [Mass/Vol] 264 mg/dL Critically high 74-106 [facility] Comment on above: Performed By: #### P OCGLUC #### [facility] [address] [address] [address] Maru Disla Potassium [Moles/Vol] 4.2 mmol/L Normal 3.5-5.1 [facility] Comment on above: Performed By: #### P OCGLUC #### [facility] [address] [address] [address] Maru Disla Protein [Mass/Vol] 7.8 g/dL Normal 6.4-8.2 [facility] Comment on above: Performed By: #### P OCGLUC #### [facility] [address] [address] [address] Maru Disla Sodium [Moles/Vol] 136 mmol/L Normal 136-145 [facility] Comment on above: Performed By: #### P OCGLUC #### [facility] [address] [address] [address] Maru Disla Urea nitrogen [Mass/Vol] 14.0 mg/dL Normal 7.0-18.0 [facility] Comment on above: Performed By: #### P OCGLUC #### [facility] [address] [place] [address] Dr. Maru Disla Urea nitrogen/Creatinine [Mass ratio] 13.6 mg/mg Normal [facility] Comment on above: Performed By: #### P OCGLUC #### [facility] [address] [address] [address] Maru Disla TROPONIN, HIGH SENSITIVITYon 04-05-2022 HSTROP 10.5 pg/mL Normal 4.0-51.3 [facility] Comment on above: Result Comment: CUT- OFF POINTS HAVE BEEN ESTABLISHED BASED ON THE FOURTH UNIVERSAL DEFINITIONS OF MYOCARDIAL INFARCTION. THE UPPER REFERENCE LIMIT (URL) OF TROPONIN, DEFINED THE 99TH PERCENTILE OF cTnI DISTRIBUTION IN A REFERENCE POPULATION, HAS BEEN CONFIRMED THE DECISION THRESHOLD FOR RI DIAGNOSIS. Performed By: #### A BG #### [facility] [address] [place] [address] Dr. Maru Disla XR CHEST 1 Von [...] by: YECENIA MONTERO Date: 2022-04-05 06:51 Normal [facility] Vital Signs Date Time Vital Sign Value Performing Clinician Faci lity 07-18-2023 14:27-0500 Body height 167.6 cm Mairasunny Escuderodesmondholz MANAGER ORGANIZATIONAL Work Phone: [facility] 07-18-2023 14:27-0500 Body mass index (BMI) [Ratio] 38.29 kg/m2 Maira Aichholz MANAGER ORGANIZATIONAL Work Phone: [facility] 07-18-2023 14:27-0500 Body temperature 98.01 [degF] Maira Kenahholz MANAGER ORGANIZATIONAL Work Phone: [facility] 07-18-2023 14:27-0500 Body weight 107.59 kg Maira Aichholz MANAGER ORGANIZATIONAL Work Phone: [facility] 07-18-2023 14:27-0500 Diastolic blood pressure 78 mm[Hg] Maira Aichholz MANAGER ORGANIZATIONAL Work Phone: [facility] 07-18-2023 14:27-0500 Heart rate 79 /min Maira Aichholz MANAGER ORGANIZATIONAL Work Phone: [facility] 07-18-2023 14:27-0500 Respiratory rate 19 /min Maira Aichholz MANAGER ORGANIZATIONAL Work Phone: [facility] 07-18-2023 14:27-0500 SaO2% (BldA) [Mass fraction] 97 % Maira Aichholz MANAGER ORGANIZATIONAL Work Phone: [facility] 07-18-2023 14:27-0500 Systolic blood pressure 142 mm[Hg] Maira Aichholz MANAGER ORGANIZATIONAL Work Phone: [facility] Healthcare Encounters Encounter Date Encounter Type Care Provider Facility Start: 11-19-2023 End: 11-19-2023 ambulatory MAIRA AICHHOLZ Not Available Start: 10-16-2023 End: 10-16-2023 ambulatory MAIRA AICHHOLZ Not Available Start: 07-18-2023 End: 07-18-2023 Office outpatient visit 25 minutes Maira Yoonholz MANAGER ORGANIZATIONAL Work Phone: [facility] Comment on above: Primary hypertension (CMS/HCC) (Primary Dx); Type 2 diabetes mellitus with diabetic neuropathy, with long-term current use of insulin ([facility]); Gastroesophageal reflux disease, unspecified whether esophagitis present; Vitamin D deficiency; Type 2 diabetes mellitus with complication, without long-term current use of insulin ([facility]); Mixed hyperlipidemia ([facility]); Encounter for screening mammogram for malignant neoplasm of breast; SANTO (obstructive sleep apnea); COPD mixed type ([facility]); Anxiety and depression ([facility]); COVID; Open wound; Morbid obesity with body mass index (BMI) of 40.0 to 49.9 ([facility]) Start: 07-18-2023 End: 07-18-2023 ambulatory MAIRA KENAHBESSY Not Available Start: 07-18-2023 Bamboo flowsheet Maira Aichvaz MANAGER ORGANIZATIONAL Work Phone: [facility] Start: 07-18-2023 Bamboo flowsheet Maira Victor Manuel MANAGER ORGANIZATIONAL Work Phone: [facility] Start: 01-08-2023 End: 01-08-2023 ambulatory [facility] Start: 10-02-2022 End: 10-03-2022 ambulatory [employer] MAIRA VICTOR MANUEL Facility:[facility] Start: 08-09-2022 End: 08-10-2022 ambulatory [employer] MAIRA AICHVAZ Facility:[facility] Start: 06-21-2022 End: 06-22-[address] CORINE ANGELA Facility:[facility] Start: 06-20-2022 End: 06-21-2022 ambulatory [employer] MAIRA AICHBESSY Facility:[facility] Start: 06-07-2022 End: 06-07-2022 ambulatory Patrick Hart Facility:[facility] Start: 04-05-2022 End: 04-09-2022 Evaluation and management of inpatient DR TERI BLOCK . Facility:[facility] Start: 11-23-2021 End: 11-23-2021 ambulatory [employer] MAIRA AICHVAZ Facility: Start: 09-30-2018 End: 10-01-2018 Patient encounter procedure DEFAULT PHYSICIAN Facility:[facility] Start: 09-15-2018 End: 09-16-2018 Patient encounter procedure DEFAULT PHYSICIAN Facility:[facility] Procedures Date Procedure Procedure Detail Performing Clinician Start: 06-19-2022 Mammography Maira santiago NP Work Phone: Start: 02-14-2015 Colonoscopy Maira santiago NP Work Phone: Plan of Treatment Date Care Activity Detail Author Start: 02-14-2025 Screening for malign ant neoplasm of colon [facility] Start: 10-16-2023 End: 10-16-2023 Patient encounter procedure 10/16/2023 9:20 AM EDT Office Visit [facility] [address] [place] [phone] Maira Rush NP [address] [place] [phone] [facility] Start: 08-16-2023 End: 09-15-2024 MG Breast - bilateral Screening Bilateral screening mammogram Imaging Routine Encounter for screening mammogram for malignant neoplasm of breast Expected: 08/16/2023 (Approximate), Expires: 09/15/2024 [facility] Comment on above: Expected: 08/16/2023 (Approximate), Expires: 09/15/2024 Start: 08-10-2023 Urine screening for protein Diabetes: Urine Protein Screening [facility] Start: 07-18-2023 End: 07-18-2023 Patient encounter procedure 07/18/2023 2:20 PM EST Office Visit [facility] [address] [place] [phone] Maira Rush NP [address] [place] [phone] Type 2 diabetes mellitus with diabetic neuropathy, with long-term current use of insulin (CMS/HCC) (Primary Dx); Primary hypertension (CMS/HCC); Gastroesophageal reflux disease, unspecified whether esophagitis present; Vitamin D deficiency; Type 2 diabetes mellitus with complication, without long-term current use of insulin (CMS/HCC); Mixed hyperlipidemia (CMS/HCC); Encounter for screening mammogram for malignant neoplasm of breast [facility] Comment on above: Type 2 diabetes gayatri itus with diabetic neuropathy, with long- term current use of insulin (CMS/HCC) (Primary Dx); Primary hypertension (CMS/HCC); Gastroesophageal reflux disease, unspecified whether esophagitis present; Vitamin D deficiency; Type 2 diabetes mellitus with complication, without long-term current use of insulin (CMS/HCC); Mixed hyperlipidemia (CMS/HCC); Encounter for screening mammogram for malignant neoplasm of breast Start: 07-18-2023 End: 07-18-2024 25-hydroxyvitamin D3 [Mass/volume] in Serum or Plasma Vitamin D 25 hydroxy Lab Routine Vitamin D deficiency Expected: 07/18/2023 (Approximate), Expires: 07/18/2024 [facility] Comment on above: Expected: 07/18/2023 (Approximate), Expires: 07/18/2024 Start: 07-18-2023 End: 07-18-2024 CBC W Auto Differential panel - Blood CBC and differential Lab Routine Gastroesophageal reflux disease, unspecified whether esophagitis present Expected: 07/18/2023 (Approximate), Expires: 07/18/2024 [facility] Work Phone: Comment on above: Expected: 07/18/2023 (Approximate), Expires: 07/18/2024 Start: 07-18-2023 End: 07-18-2024 Comprehensive metabolic 2000 panel - Serum or Plasma Comprehensive metabolic panel Lab Routine Primary hypertension (CMS/HCC) Type 2 diabetes mellitus with complication, without long-term current use of insulin (CMS/HCC) Mixed hyperlipidemia (CMS/HCC) Expected: 07/18/2023 (Approximate), Expires: 07/18/2024 [facility] Comment on above: Expected: 07/18/2023 (Approximate), Expires: 07/18/2024 Start: 07-18-2023 End: 07-18-2024 Hemoglobin A1c/Hemoglobin.total in Blood Hemoglobin A1c Lab Routine Type 2 diabetes mellitus with complication, without long-term current use of insulin (CMS/HCC) Expected: 07/18/2023 (Approximate), Expires: 07/18/2024 [facility] Comment on above: Expected: 07/18/2023 (Approximate), Expires: 07/18/2024 Start: 07-18-2023 End: 07-18-2024 Lipid 1996 panel - Serum or Plasma Lipid panel Lab Routine Mixed hyperlipidemia ([facility]) Expected: 07/18/2023 (Approximate), Expires: 07/18/2024 [facility] Comment on above: Expected: 07/18/2023 (Approximate), Expires: 07/18/2024 Start: 07-18-2023 End: 07-18-2024 Microalbumin/Creatinine panel in random Urine Microalbumin / creatinine, urine ratio Lab Routine Type 2 diabetes mellitus with complication, without long-term current use of insulin ([facility]) Expected: 07/18/2023 (Approximate), Expires: 07/18/2024 [facility] Comment on above: Expected: 07/18/2023 (Approximate), Expires: 07/18/2024 Start: 07-18-2023 End: 07-18-2024 Urinalysis complete panel - Urine Urinalysis with reflex microscopic (clean catch) Lab Routine Type 2 diabetes mellitus with complication, without long-term current use of insulin ([facility]) Expected: 07/18/2023 (Approximate), Expires: 07/18/2024 [facility] Comment on above: Expected: 07/18/2023 (Approximate), Expires: 07/18/2024 Start: 06-19-2023 Screening for malign ant neoplasm of breast Mammogram [facility] Start: 02-01-2023 Influenza vaccination Influenza Vacc ine (#1) [facility] Start: 01-07-2019 Hemoglobin A1c measurement Diabetes: Hemoglobin A1C [facility] Start: 1989 Screening for malign ant neoplasm of cervix [facility] Start: 1980 Screening for malign ant neoplasm of cervix Pap Smear [facility] Start: 1969 Glaucoma screening Diabetes: R etinopathy Screening [facility] Start: 1959 Screening for malign ant neoplasm of colon [facility] Immunizations Immunization Date Immunization Notes Care Provider Fa cility 04-05-2022 influenza, injectabl e, quadrivalent, preservative free Maira Rush MANAGER ORGANIZATIONAL Work Phone: [facility] 04-05-2022 pneumococcal polysaccharide vaccine, 23 valent Maira Rush NP Work Phone: [facility] 04-05-2022 influenza virus vacc ine, unspecified formulation Maira Victor Manuel MANAGER ORGANIZATIONAL Work Phone: [facility] 11-23-2021 diphtheria, tetanus toxoids and pertussis vaccine Maira Fatouz MANAGER ORGANIZATIONAL Work Phone: [facility] 03-24-2020 tetanus toxoid, redu joaquin diphtheria toxoid, and acellular pertussis vaccine, adsorbed Maira Victor Manuel MANAGER ORGANIZATIONAL Work Phone: [facility] 03-25-2017 Influenza, injectabl e, [place] Canine Kidney, preservative free, quadrivalent Maira Victor Manuel MANAGER ORGANIZATIONAL Work Phone: [facility] Payers Date Payer Category Payer Medicaid [employer] [place] [employer] [id number] 2017-Present [address] [place] [address] [id number] 1959 Unknown [id number] 1959 Unknown [id number] 1959 Unknown [id number] 1959 Unknown [id number] 1959 Unknown [id number] 1959 Unknown [id number] 1959 Unknown [id number] 1959 Unknown [id number] 1959 Unknown [id number] 1959 Unknown [id number] 1959 Unknown [id number] 1959 Unknown [id number] 1959 Unknown [id number] Unknown Social History Date Type Detail Facility Start: 07-15-2023 Tobacco smoking status NJIS Ex-smoke r [facility] Start: 06-03-1982 End: 04-03-2022 History of tobacco use Current smoker [facility] Start: 06-03-1982 End: 04-03-2022 History of tobacco use Cigarette Smoker [facility] Start: 07-15-2023 End: 07-18-2023 Cigarettes smoked current (pack per day) - Reported 0.5 [facility] Start: 07-18-2023 Alcohol intake Ex-drinker (finding) [facility] Start: 06-29-2023 End: 07-18-2023 Tobacco use panel [facility] Start: 07-15-2023 Alcohol Comment coffee 1-2 cups per day [facility] Start: 1960 Sex Assigned At Not on file [facility] Medical Equipment Procedure Code Equipment Code Equipment Origin al Text Equipment Identifier Dates Inject 1 each un steven the skin if needed [id number] Start: 06-24-2023 History of Present illness Narrative 07-18-2023 Maira Rush, MANAGER ORGANIZATIONAL - 07/18/2023 3:23 PM ESTMaira Rush, MANAGER ORGANIZATIONAL - 07/18/2023 3:22 PM Nimco Rush, MANAGER ORGANIZATIONAL - 07/18/2023 3:21 PM ESTMaira Rush, MANAGER ORGANIZATIONAL - 07/18/2023 3:21 PM EST Note Date [...] to wear PAP Not wearing risk stroke, RI, Associated Problem(s): Type 2 diabetes mellitus with diabetic neuropathy, with long-term current use of insulin ([facility]) Non compliant with follow up with Roque Explained to her her persistent non compliance will lead to increase risk stroke, RI, blindness, amputation, as well as CKD Instructed [...] 2 puffs, Inhalation, Daily Sure Comfort Pen [place] 32G X 4 MM misc 1 each, [...] Medical History: Diagnosis Date Anxiety and depression (CMS/HCC) 07/18/2023 Atrial fibrillation (CMS/HCC) 07/18/2023 COPD mixed type (CMS/HCC) 05/23/2023 Drug-induced acute pancreatitis 07/18/2023 Edema of extremities 07/18/2023 GERD (gastroesophageal reflux disease) 07/18/2023 HLD (hyperlipidemia) ([facility] 07/18/2023 Medical non-compliance 07/18/2023 Morbid obesity with body mass index (BMI) of 40.0 to 49.9 ([facility]) 07/18/2023 Neuropathy, diabetic ([facility]) 07/18/2023 SANTO (obstructive sleep apnea) 07/18/2023 Osteoporosis ([facility]) 07/18/2023 Seasonal allergies 07/18/2023 Tobacco user 07/18/2023 Type 2 diabetes mellitus with complication, without long-term current use of insulin ([facility]) 07/18/2023 Urge and stress incontinence 07/18/2023 Vitamin [...] Items Addressed This Visit COPD mixed type ([facility]) Continues to smoke, refused to quit Cont current meds at this time Primary hypertension ([facility]) stable Relevant Orders Comprehensive metabolic panel Type 2 diabetes mellitus with diabetic neuropathy, with long-term current use of insulin ([facility]) - Primary Non compliant with follow up with Roque Explained to her her persistent non compliance will lead to increase risk stroke, RI, blindness, amputation, as well as CKD Instructed [...] to wear PAP Not wearing risk stroke, RI, GERD (gastroesophageal reflux disease) Relevant Orders CBC and differential Vitamin D deficiency Relevant Orders Vitamin D 25 hydroxy Type 2 diabetes mellitus with complication, without long-term current use of insulin ([facility]) Relevant Orders Comprehensive metabolic panel Microalbumin / creatinine, urine ratio Urinalysis with reflex microscopic (clean catch) Hemoglobin A1c HLD (hyperlipidemia) ([facility]) Relevant Orders Lipid panel Comprehensive metabolic panel Anxiety and depression ([facility]) Stable at this time Encounter for screening mammogram for malignant neoplasm of breast Relevant Orders Bilateral screening mammogram COVID Recent hospitalization for this, appears to be doing quite well Open wound No s/s infection, recommend using diaper barrier ointment on this documented in this encounter [facility] Progress note 01-08-2023 Note Date & [...] All other systems reviewed and are negative. [facility] Progress note 01-08-2023 Note Date & [...] Lexiscan stress test (more content not included)... [facility] Clinical Note 06-07-2022 Note Date & [...] by: PATRICK HART Date: 2022-06-07 08:[address] [facility] Evaluation note Note Date & Type Note Facility Evaluation note Diagnosis Primary hypertension ([facility])- Primary Unspecified essential hypertension Type 2 diabetes mellitus with diabetic neuropathy, with long-term current use of insulin ([facility]) Gastroesophageal reflux disease, unspecified whether esophagitis present Vitamin D deficiency Type 2 diabetes mellitus with complication, without long-term current use of insulin ([facility]) Mixed hyperlipidemia ([facility]) Mixed hyperlipidemia Encounter for screening mammogram for malignant neoplasm of breast SANTO (obstructive sleep apnea) Obstructive sleep apnea (adult) (pediatric) COPD mixed type ([facility]) Anxiety and depression ([facility]) COVID Open wound Open wound(s) (multiple) of unspecified site(s), without mention of complication Morbid obesity with body mass index (BMI) of 40.0 to 49.9 ([facility]) documented in this encounter [facility] Summary Purpose Family History No Family History Records FoundNo Family History Records FoundNo Family History Records FoundNo Family History Records Found Advance Directives No Advanced Directives Records FoundNo Advanced Directives Records FoundNo Advanced Directives Records FoundNo Advanced Directives Records Found Additional Source Comments INFORMATION SOURCE (unrecogn ized section and content) DATE CREATED AUTHOR 10/06/2018 [place] DATE CREATED AUTHOR AUTHOR'S ORGANIZ ATION 10/09/2022 [facility] DATE CREATED AUTHOR AUTHOR'S ORGANIZ ATION 09/05/2023 [facility] DATE CREATED AUTHOR AUTHOR'S ORGANIZ ATION 11/21/2023 [facility] dical Specialists EPIC Care Teams (unrecognized sec tion and content) 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 [facility]. provides no warranty or guarantee of the accuracy or completeness of information in this document.
[2024-01-03 19:50] VITALS: PULSE 69
--- NOTE | 2024-01-03 19:53 | ED_ITS ---
HPI - Syncope General Chief Complaint: Syncope Stated Complaint: fall Time Seen by Provider: 01/03/24 19:49 Source: patient Mode of arrival: ambulance Limitations: no limitations History of Present Illness HPI narrative: past history of IDDM, HTN. states she checked her BS and it was elevated into the 300s. took insulin. Rechecked her BS and it was down in the 200s. States she decided to go to the kitchen to get something to eat. States she passed out in the kitchen. Struck the back of her head. Not sure how long she was unconscious. Neighbors who were visiting called 911. She complains of mild headache. Denies injury elsewhere. Denies hip pain, back pain or extremity injury. Denies chest pain, dyspnea or nausea. No abdominal pain. States she is thristy Related Data Home Medications ?Medication ?Instructions ?Recorded ?Confirmed aspirin 81 mg tablet,delayed 81 mg PO DAILY 04/05/23 01/03/24 release budesonide-formoterol HFA 160 2 puff inhalation BID 04/05/23 06/24/23 mcg-4.5 mcg/actuation aerosol inhaler (Symbicort) calcium carbonate 500 mg-vitamin 1 tab PO BID 04/05/23 01/03/24 D3 10 mcg (400 unit) tablet carvedilol 12.5 mg tablet 12.5 mg PO BID 04/05/23 01/03/24 empagliflozin 25 mg tablet 25 mg PO DAILY 04/05/23 01/03/24 (Jardiance) gabapentin 600 mg tablet 600 mg PO TID 04/05/23 01/03/24 insulin aspart U-100 100 unit/mL 1 sliding scale dose subcut 04/05/23 01/03/24 (3 mL) subcutaneous pen (Novolog TIDWMEAL FlexPen U-100 Insulin aspart) insulin glargine 100 unit/mL (3 60 unit subcut QPM 04/05/23 01/03/24 mL) subcutaneous pen (Lantus Solostar U-100 Insulin) loratadine 10 mg tablet 10 mg PO DAILY 04/05/23 06/24/23 losartan 100 mg tablet 100 mg PO DAILY 04/05/23 01/03/24 pantoprazole 40 mg tablet,delayed 40 mg PO DAILY 04/05/23 01/03/24 release potassium chloride 10 mEq 10 meq PO DAILY 04/05/23 01/03/24 capsule,extended release rivaroxaban 20 mg tablet (Xarelto) 20 mg PO DAILY 04/05/23 01/03/24 rosuvastatin 5 mg tablet 5 mg PO DAILY 04/05/23 01/03/24 spironolactone 25 mg tablet 25 mg PO BID 04/05/23 01/03/24 tiotropium bromide 2.5 2 puff inhalation DAILY 04/05/23 06/24/23 mcg/actuation mist for inhalation (Spiriva Respimat) cholecalciferol (vitamin D3) 50 01/03/24 mcg (2,000 unit) tablet furosemide 20 mg tablet mg 01/03/24 Previous Rx's ?Medication ?Instructions ?Recorded albuterol sulfate 90 mcg/actuation 2 inh inhalation Q4H PRN shortness 06/25/23 aerosol inhaler of breath or wheezing #8.5 grams albuterol sulfate 2.5 mg/3 mL 2.5 mg (3 mL) inhalation Q6H PRN 09/16/23 (0.083 %) solution for nebulization shortness of breath or wheezing #90 mL Allergies Allergy/AdvReac Type Severity Reaction Status Date / Time ciprofloxacin [From Cipro] AdvReac Intermediate Vomiting Verified 01/03/24 19:46 metronidazole [From Flagyl] AdvReac Intermediate Vomiting Verified 01/03/24 19:46 Penicillins AdvReac Intermediate Vomiting Verified 01/03/24 19:46 sulfamethoxazole AdvReac Intermediate Vomiting Verified 01/03/24 19:46 [From Bactrim] trimethoprim [From Bactrim] AdvReac Intermediate Vomiting Verified 01/03/24 19:46 Review of Systems ROS Status of ROS 10 or more systems reviewed and unremark able except as noted in history and below [facility] Medical History (Updated 01/03/24 @ 22:48 by Murtaza Crenshaw MD) A-fib ?I48.91 - Unspecified atrial fibrillation (ICD-10) Hypertension ?I10 - Essential (primary) hypertension (ICD-10) Diabetes ?E11.9 - Type 2 diabetes mellitus without complications (ICD-10) Acute shoulder pain ?M25.519 - Pain in unspecified shoulder (ICD-10) Hyperlipidemia ?E78.5 - Hyperlipidemia, unspecified (ICD-10) Depression ?F32.A - Depression, unspecified (ICD-10) Chronic obstructive pulmonary disease ?J44.9 - Chronic obstructive pulmonary disease, unspecified (ICD-10) Surgical History (Updated 06/24/23 @ 12:13 by Aliyah Ruiz RN) History of appendectomy ?Z90.49 - Acquired absence of other specified parts of digestive tract (ICD- 10) Hx of cholecystectomy ?Z90.49 - Acquired absence of other specified parts of digestive tract (ICD- 10) H/O: hysterectomy ?Z90.710 - Acquired absence of both cervix and uterus (ICD-10) Family History (Updated 06/24/23 @ 12:13 by Aliyah Ruiz RN) Mother Family history of diabetes mellitus Grandfather Family history of diabetes mellitus Father Family history of stroke Social History (Updated 06/24/23 @ 12:14 by Aliyah Ruiz RN) Within the past year, how often did you have a drink containing alcohol: never Score interpretation: A score less than 3 is consistent with normal alcohol consumption. Smoking status: Current every day smoker Non-prescribed substance use: denies use Highest level of school completed/degree received: high school graduate Gender Identity: female Exam Constitutional Vital Signs, click to edit/add: Last Vital Signs Temp 97.4 F L 01/03/24 19:40 Pulse 85 01/03/24 21:33 Resp 24 H 01/03/24 21:33 BP 144/69 H 01/03/24 21:33 Pulse Ox 91 L 01/03/24 21:33 O2 Del Method Room Air 01/03/24 21:33 Common normals: no apparent distress, average body habitus, oriented x3, no limitations, healthy appearing, alert and well nourished [facility] Common normals: normocephalic and head/scalp atraumatic Eye Common normals: PERRL and EOMs intact bilaterally Neck & C-Spine Common normals: full ROM Chest Common normals: inspection of chest normal and palpation of chest normal Respiratory Common normals: normal respiratory effort, no retractions, no use of accessory muscles and clear to auscultation bilaterally Cardio Common normals: regular rate, regular rhythm, S1 normal heart sound and S2 n ormal heart sound GI Common normals: Normal to inspection, nondistended, normoactive bowel sounds present, soft to palpation and non-tender Extremity Common normals: normal to inspection and full ROM Neuro Common normals: oriented x3, CN's II-XII intact bilaterally, moves all extremities, no focal motor deficits and no sensory deficits noted Psych Appearance: grossly normal Course Vital Signs Vital signs: Vital Signs Temperature 97.4 F L 01/03/24 19:40 Pulse Rate 69 01/03/24 19:40 Respiratory Rate 18 01/03/24 19:40 Blood Pressure 121/58 01/03/24 19:40 Pulse Oximetry 93 L 01/03/24 19:40 Oxygen Delivery Method Room Air 01/03/24 19:40 Temperature 97.4 F L 01/03/24 19:40 Pulse Rate 85 01/03/24 21:33 Respiratory Rate 24 H 01/03/24 21:33 Blood Pressure 144/69 H 01/03/24 21:33 Pulse Oximetry 91 L 01/03/24 21:33 Oxygen Delivery Method Room Air 01/03/24 21:33 MDM - Syncope MDM Narrative Medical decision making narrative: patient presents after syncope episode at home. Did bump the back of her head but does not have any obvious contusion. serial troponin neg. D-dimer elevated but no evidence of PE. Does have a nodule on her CT chest that will require followup . patient informed. Patient also informed of the plan to admit her over night to an observation bed as it remains unclear why she passed out. She did not want to stay. Her is very ill. She did agree to stay for the 2nd troponin and will follow up with her doctor Lab Data Labs: Lab Results 01/03/24 01/03/24 01/03/24 Range/Units 19:52 20:00 22:20 WBC 12.4 H (4.0-11.0) 10^3/uL RBC 5.42 H (4.20-5.40) 10^6/uL Hgb 17.2 H (12.0-16.0) g/dL Hct 51.1 H (36.0-48.0) % MCV 94.3 (81.0-99.0) fL MCH 31.7 (26.7-34.0) pg MCHC 33.7 (29.9-35.2) g/dL RDW 12.6 (11.0-15.0) % Plt Count 266 (150-450) 10^3/uL MPV 10.9 (9.5-13.5) fL Neut % (Auto) 60.3 (43.0-75.0) % Lymph % (Auto) 26.6 (20.5-60.0) % Alcorn % (Auto) 9.4 (1.7-12.0) % Eos % (Auto) 2.7 (0.9-7.0) % Baso % (Auto) 0.6 (0.2-2.0) % Neut # (Auto) 7.5 H (1.4-6.5) 10^3/uL Lymph # (Auto) 3.3 (1.2-3.8) 10^3/uL Alcorn # (Auto) 1.2 H (0.3-0.8) 10^3/uL Eos # (Auto) 0.3 (0.0-0.7) 10^3/uL Baso # (Auto) 0.1 (0.0-0.1) 10^3/uL Abs Immat Gran (auto) 0.05 H (0.00-0.03) 10^3/uL Imm/Tot Granulo (auto) 0.4 (0.0-0.5) % D-Dimer 6.64 H* (<=0.59) mg/L FEU Sodium 138 (136-145) mmol/L Potassium 2.9 L* (3.5-5.1) mmol/L Chloride 100 (98-107) mmol/L Carbon Dioxide 26.1 (21.0-32.0) mmol/L Anion Gap 14.8 BUN 14.0 (7.0-18.0) mg/dL Creatinine 1.02 (0.55-1.02) mg/dL Est GFR ( Amer) >60 (>=60) Est GFR (Non-Af Amer) 55 L (>=60) BUN/Creatinine Ratio 13.7 Glucose 176 H (74-106) mg/dL Lactate 2.5 H* (0.4-2.0) mmol/L Calcium 9.4 (8.5-10.1) mg/dL Troponin I High Sens 9.3 11.0 (4.0-51.3) pg/mL Urine Color Lt. yellow (YELLOW) Urine Clarity Clear (CLEAR) Urine pH 6.0 (5.0-9.0) Ur Specific Murray <=1.005 A (1.005-1.025) Urine Protein Negative (NEG/TRACE) mg/dL Urine Glucose (UA) >=1000 A (NEGATIVE) mg/dL Urine Ketones Negative (NEGATIVE) mg/dL Urine Occult Blood Negative (NEGATIVE) Urine Nitrite Negative (NEGATIVE) Urine Bilirubin Negative (NEGATIVE) Urine Urobilinogen 0.2 (0.2-1.0) EU/dL Ur Leukocyte Esterase Negative (NEGATIVE) Imaging Data Chest x-ray: Radiologist's impression: ITS Impressions Cervical Spine CT 01/03/24 19:57 IMPRESSION: 1. No acute fracture or subluxation. 2. Mild degenerative changes. 3. Osteopenia. Electronically authenticated by: ROBERT SANTIAGO Date: 01/03/2024 21:[address] 01/03/24 19:57 IMPRESSION: 1. No acute intracranial abnormality. 2. Atherosclerotic calcification and chronic microvascular ischemia. Electronically authenticated by: ROBERT SANTIAGO Date: 01/03/2024 21:33 Chest CTA 01/03/24 20:24 IMPRESSION: 1. No evidence of pulmonary embolism. 2. Mild bronchial wall thickening suggestive of bronchitis. 3. 7 mm right lower lobe pulmonary nodule which is indeterminate. Recommend follow-up CT in 3-6 months. 4. Borderline enlarged bilateral axillary lymph nodes which are nonspecific but may be reactive in nature. Recommend attention on follow-up. Fleischner Society guidelines for follow-up and management of a solid pulmonary nodule incidentally discovered in patients 35 years old or older: Nodule size <6 mm Low-risk patient: No routine follow-up. High-risk patient: Optional CT at 12 months. Nodule size = 6-8 mm Low-risk patient: CT at 3-6 months, then consider CT at 18-24 months. High-risk patient: CT at 3-6 months, then CT at 18-24 months. Nodule size > 8 mm Low-risk patient: CT at 3-6 months, then consider CT at 18-24 months. High-risk patient: CT at 3-6 months,then CT at 18-24 months. Low risk patients include individuals with minimal or absent history of smoking and other known risk factors. High risk patients include individuals with a history of smoking or other known risk factors. Dimensions are an average of the long and short axes, rounded to the nearest millimeter. Radiology 2017. Jul 23:770473. DOI: 10.1148/radiol.4506534304. Electronically authenticated by: ROBERT SANTIAGO Date: 01/03/2024 21:54 Discharge Plan Discharge Stand Alone Forms: Portal Instructions Chief Complaint: Syncope Clinical Impression: Syncope, Head injury Patient Disposition: Home, Self-Care Prescriptions / Home Meds: No Action albuterol sulfate 90 mcg/actuation HFA aerosol inhaler 2 inh inhalation Q4H PRN (Reason: shortness of breath or wheezing) Qty: 8.5 0RF albuterol sulfate 2.5 mg /3 mL (0.083 %) solution for nebulization 2.5 mg inhalation Q6H PRN (Reason: shortness of breath or wheezing) Qty: 90 0RF furosemide 20 mg tablet cholecalciferol (vitamin D3) 50 mcg (2,000 unit) tablet aspirin 81 mg tablet,delayed release (DR/EC) 81 mg PO DAILY budesonide-formoterol [Symbicort] 160-4.5 mcg/actuation HFA aerosol inhaler 2 puff INHALATION BID calcium carbonate-vitamin D3 500 mg-10 mcg (400 unit) tablet 1 tab PO BID carvedilol 12.5 mg tablet 12.5 mg PO BID Jardiance 25 mg tablet 25 mg PO DAILY gabapentin 600 mg tablet 600 mg PO TID insulin aspart U-100 [Novolog FlexPen U-100 Insulin] 100 unit/mL (3 mL) insulin pen 1 sliding scale dose SUBCUT TIDWMEAL insulin glargine [Lantus Solostar U-100 Insulin] 100 unit/mL (3 mL) insulin pen 60 unit SUBCUT QPM loratadine 10 mg tablet 10 mg PO DAILY losartan 100 mg tablet 100 mg PO DAILY pantoprazole 40 mg tablet,delayed release (DR/EC) 40 mg PO DAILY potassium chloride 10 mEq capsule, extended release 10 meq PO DAILY Xarelto 20 mg tablet 20 mg PO DAILY rosuvastatin 5 mg tablet 5 mg PO DAILY spironolactone 25 mg tablet 25 mg PO BID Spiriva Respimat 2.5 mcg/actuation mist 2 puff INHALATION DAILY Print Language: Zimbabwean Instructions: Syncope (ED), Head Injury (ED) Additional Instructions: follow up with your doctor saturday for recheck Referrals: Aichholz,Maira J, LUMP MACHINE OPERATOR [Primary Care Provider] - 1 week
--- NOTE | 2024-01-03 19:57 | CT_ITS ---
The [address] [address] Patient Name: RODDY HORN MRN: [facility]:[id number] date: 1960 Sex: F Assigned Patient Location: ER Current Patient Location: ER Accession/Order Number: [id number] Exam Date: 01/03/2024 20:15 Report Date: 01/03/2024 21:33 At the request of: JEREMIAH MARTIN Procedure: CT head/brain wo con EXAMINATION: CT head/brain wo con, 01/03/2024 8:15 PM EDT HISTORY: head injury COMPARISON: None. TECHNIQUE: CT scan of the head was performed without IV contrast. CT dose reduction technique was used, including Automated Exposure Control. FINDINGS: BRAIN PARENCHYMA/CSF SPACES: Ventricles are normal in size for age. There is no hemorrhage, mass effect or midline shift. There is diffuse atherosclerotic calcification of the vertebral and carotid arteries. There is mild low-attenuation in the white matter compatible with chronic small vessel ischemia. PARANASAL SINUSES: Clear. SKULL BASE AND CALVARIUM: Normal. EXTRACRANIAL SOFT TISSUES: Normal. CT/CT head/brain wo con IMPRESSION: 1. No acute intracranial abnormality. 2. Atherosclerotic calcification and chronic microvascular ischemia. Electronically authenticated by: ROBERT SANTIAGO Date: 01/03/2024 21:33
--- NOTE | 2024-01-03 19:57 | CT_ITS ---
The [address] [address] Patient Name: RODDY HORN MRN: [facility]:[id number] date: 1960 Sex: F Assigned Patient Location: ER Current Patient Location: ER Accession/Order Number: [id number] Exam Date: 01/03/2024 20:15 Report Date: 01/03/2024 21:32 At the request of: JEREMIAH MARTIN Procedure: CT cervical spine wo con CT CERVICAL SPINE WITHOUT CONTRAST HISTORY: fall/head injury. COMPARISON: None available. TECHNIQUE: Helical CT images were performed of the cervical spine without intravenous contrast. Dose reduction techniques were achieved by using automated exposure control and/or adjustment of mA and/or kV according to patient size and/or use of iterative reconstruction technique. 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 MINERALIZATION: Moderate osteopenia. CRANIOCERVICAL AND ATLANTOAXIAL ARTICULATIONS: Intact with no traumatic subluxation. VERTEBRAL BODIES: Normal in height with no acute compression fracture. DISC SPACES: Mild narrowing at C4-C5 with osteophytic spurring consistent with degenerative changes. ALIGNMENT: Normal. POSTERIOR ELEMENTS: Intact. ODONTOID PROCESS: Intact. VISUALIZED SKULL BASE: Unremarkable. SPINAL CANAL/NEURAL FORAMEN: No significant disc herniation, spinal canal or neural foraminal stenosis. UPPER THORAX: Unremarkable. SOFT TISSUES OF THE NECK: There is moderate atherosclerotic coronary artery calcification. CT/CT cervical spine wo con IMPRESSION: 1. No acute fracture or subluxation. 2. Mild degenerative changes. 3. Osteopenia. Electronically authenticated by: ROBERT SANTIAGO Date: 01/03/2024 21:32
[2024-01-03 20:04] LABS: Basophils Absolute Auto 0.1 10^3/uL (0.0-0.1); Basophils Percent Auto 0.6 % (0.2-2.0); Eosinophils Absolute Auto 0.3 10^3/uL (0.0-0.7); Eosinophils Percent Auto 2.7 % (0.9-7.0); Hematocrit 51.1 % (36.0-48.0); Hemoglobin 17.2 g/dL (12.0-16.0); Immature Granulocytes Abs Auto 0.05 10^3/uL (0.00-0.03); Immature Granulocytes Pct Auto 0.4 % (0.0-0.5); Lymphocytes Absolute Auto 3.3 10^3/uL (1.2-3.8); Lymphocytes Percent Auto 26.6 % (20.5-60.0); Mean Corpuscular HGB Conc 33.7 g/dL (29.9-35.2); Mean Corpuscular Hemoglobin 31.7 pg (26.7-34.0); Mean Corpuscular Volume 94.3 fL (81.0-99.0); Mean Platelet Volume 10.9 fL (9.5-13.5); Monocytes Absolute Auto 1.2 10^3/uL (0.3-0.8); Monocytes Percent Auto 9.4 % (1.7-12.0); Neutrophils Absolute Auto 7.5 10^3/uL (1.4-6.5); Neutrophils Percent Auto 60.3 % (43.0-75.0); Platelet Count 266 10^3/uL (150-450); Red Blood Count 5.42 10^6/uL (4.20-5.40); Red Cell Distribution Width 12.6 % (11.0-15.0); White Blood Count 12.4 10^3/uL (4.0-11.0)
[2024-01-03 20:06] LABS: Bilirubin Urine NEGATIVE (NEGATIVE); Blood Urine NEGATIVE (NEGATIVE); Clarity Urine CLEAR (CLEAR); Color Urine LT. YELLOW (YELLOW); Glucose Urine UA >=1000 mg/dL (NEGATIVE); Ketones Urine NEGATIVE (NEGATIVE); Leukocyte Esterase Urine NEGATIVE (NEGATIVE); Nitrite Urine NEGATIVE (NEGATIVE); Protein Urine NEGATIVE (NEG/TRACE); Specific Gravity Urine <=1.005 (1.005-1.025); Urobilinogen Urine 0.2 EU/dL (0.2-1.0)
[2024-01-03 20:07] LABS: Urine Microscopic Indicated NO
[2024-01-03 20:20] LABS: Troponin I High Sensitivity 9.3 pg/mL (4.0-51.3)
[2024-01-03 20:24] LABS: D Dimer 6.64 mg/L FEU (<=0.59)
--- NOTE | 2024-01-03 20:24 | CT_ITS ---
[address] [address] Patient Name: RODDY HORN MRN: [id number] date: 1960 Sex: F Assigned Patient Location: ER Current Patient Location: Accession/Order Number: [id number] Exam Date: 01/03/2024 20:40 Report Date: 01/03/2024 21:54 At the request of: JEREMIAH MARTIN Procedure: CT angio chest EXAMINATION: CT angio chest, 01/03/2024 8:40 PM EDT HISTORY: elevated d-dimer COMPARISON: Chest x-ray 09/16/2023. TECHNIQUE: CT angiography of the chest was performed with IV contrast. MIP (maximum intensity projection) images or 3D post processing was performed. CT dose reduction technique was used, including Automated Exposure Control. FINDINGS: VASCULATURE/PULMONARY ARTERIES: There is satisfactory opacification of the pulmonary arterial system. There is no evidence of pulmonary embolism. The main pulmonary artery is normal in diameter. The aorta and great vessels appear normal. HEART/PERICARDIUM: Normal. MEDIASTINAL/HILAR LYMPH NODES: No lymphadenopathy. ESOPHAGUS: Normal as visualized. PLEURAL CAVITY: No pleural effusion or pneumothorax. LUNGS/AIRWAYS: Mild bilateral bronchial wall thickening suggestive of bronchitis. There is a 7 mm pulmonary nodule in the right lower lobe on image 72 series 5. There is a small calcified granuloma in the right upper lobe. There is also a tiny calcified granuloma in the left upper lobe. There is mild bibasilar atelectasis. CHEST WALL/AXILLA/LOWER NECK: There are several borderline enlarged bilateral axillary and subpectoral lymph nodes ranging in size up to approximately 1.2 x 1.2 cm on the right. VISUALIZED UPPER ABDOMEN: Normal. BONES: No acute process. CT/CT angio chest IMPRESSION: 1. No evidence of pulmonary embolism. 2. Mild bronchial wall thickening suggestive of bronchitis. 3. 7 mm right lower lobe pulmonary nodule which is indeterminate. Recommend follow-up CT in 3-6 months. 4. Borderline enlarged bilateral axillary lymph nodes which are nonspecific but may be reactive in nature. Recommend attention on follow-up. Fleischner Society guidelines for follow-up and management of a solid pulmonary nodule incidentally discovered in patients 35 years old or older: Nodule size <6 mm Low-risk patient: No routine follow-up. High-risk patient: Optional CT at 12 months. Nodule size = 6-8 mm Low-risk patient: CT at 3-6 months, then consider CT at 18-24 months. High-risk patient: CT at 3-6 months, then CT at 18-24 months. Nodule size > 8 mm Low-risk patient: CT at 3-6 months, then consider CT at 18-24 months. High-risk patient: CT at 3-6 months,then CT at 18-24 months. Low risk patients include individuals with minimal or absent history of smoking and other known risk factors. High risk patients include individuals with a history of smoking or other known risk factors. Dimensions are an average of the long and short axes, rounded to the nearest millimeter. Radiology 2017. Feb 23:102112. DOI: 10.1148/radiol.1219520096. Electronically authenticated by: ROBERT SANTIAGO Date: 01/03/2024 21:54
[2024-01-03 20:25] LABS: Lactate/Lactic Acid 2.5 mmol/L (0.4-2.0)
[2024-01-03 21:06] LABS: Anion Gap 14.8; BUN Creatinine Ratio 13.7; Calcium 9.4 mg/dL (8.5-10.1); Carbon Dioxide 26.1 mmol/L (21.0-32.0); Chloride 100 mmol/L (98-107); Estimated GFR (African America >60 (>=60); Estimated GFR (Non-African Ame 55 (>=60); Glucose 176 mg/dL (74-106); Sodium 138 mmol/L (136-145)
[2024-01-03 21:15] LABS: Potassium 2.9 mmol/L (3.5-5.1)
[2024-01-03 21:33] VITALS: BP 144/69; PULSE 85; O2SAT 91
[2024-01-03] MEDS: POTASSIUM CHLORIDE 10 MEQ ER TABLET 40 MEQ PO (21:35)
[2024-01-03 23:27] VITALS: BP 136/69; PULSE 71; O2SAT 91
--- NOTE | 2024-01-04 01:00 | ECG_ITS ---
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
== END 2024-01-03 23:29 | disposition home or self-care (01) ==
PROVIDERS: Emergency Provider Internal Medicine; PCP Nurse Practitioner
DX: R55 Syncope and collapse (principal); S09.90XA Unspecified injury of head, initial encounter; W19.XXXA Unspecified fall, initial encounter; E11.9 Type 2 diabetes mellitus without complications; I10 Essential (primary) hypertension; Z79.4 Long term (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; F17.210 Nicotine dependence, cigarettes, uncomplicated
CPT/HCPCS: 36415; 70450; 71275; 72125; 80048; 81003; 83605; 84484; 85025; 85378; 99285; Q9967

== ENCOUNTER 2024-01-06 20:17 | Emergency (ER) | payer OTHER, SELFPAY ==
--- NOTE | 2024-01-06 20:20 | CT_ITS ---
The [address] [address] Patient Name: RODDY HORN MRN: [facility]:[id number] date: 1960 Sex: F Assigned Patient Location: ER Current Patient Location: ER Accession/Order Number: [id number] Exam Date: 01/06/2024 20:30 Report Date: 01/06/2024 21:55 At the request of: CHASE HUNT Procedure: CT cervical spine wo con EXAM: CT cervical spine wo con CLINICAL INDICATION: fall, head injury COMPARISON: CT cervical spine 01/03/2024 TECHNIQUE: CT scanning of the cervical spine was performed in the axial plane. Coronal and sagittal reconstructed images were performed and viewed. FINDINGS: No acute fracture. Minimal retrolisthesis of C4 on C5, similar to prior. Mild multilevel degenerative disc and facet disease most prominent at C4-C5, similar to prior. The prevertebral soft tissues are unremarkable. Additional soft tissues of the neck and upper thorax are unremarkable. CT/CT cervical spine wo con IMPRESSION: No acute fracture. Electronically authenticated by: BLANKA YANG Date: 01/06/2024 21:55
--- NOTE | 2024-01-06 20:20 | CT_ITS ---
The [address] [address] Patient Name: RODDY HORN MRN: [id number] date: 1960 Sex: F Assigned Patient Location: ED.MAIN Current Patient Location: ER Accession/Order Number: [id number] Exam Date: 01/06/2024 20:30 Report Date: 01/06/2024 21:32 At the request of: CHASE HUNT Procedure: CT head/brain wo con EXAMINATION: CT head/brain wo con, 01/06/2024 8:30 PM EDT HISTORY: fall, head injury COMPARISON: None. TECHNIQUE: CT scan of the head was performed without IV contrast. CT dose reduction technique was used, including Automated Exposure Control. FINDINGS: BRAIN PARENCHYMA/CSF SPACES: Ventricles are normal in size for age. There is no hemorrhage, mass effect or midline shift. There are no other significant findings. PARANASAL SINUSES: Clear. SKULL BASE AND CALVARIUM: Normal. EXTRACRANIAL SOFT TISSUES: Right posterior parietal scalp soft tissue swelling. CT/CT head/brain wo con IMPRESSION: 1. No acute intracranial abnormality. 2. Right posterior parietal scalp soft tissue swelling. Electronically authenticated by: ELISSA DONOVAN Date: 01/06/2024 21:32
--- NOTE | 2024-01-06 20:20 | ED.GENADUL1 ---
HPI HPI - General Adult General Chief complaint: Fall Stated complaint: FALL/HEAD INJURY Time Seen by Provider: 01/06/24 20:20 History of Present Illness HPI narrative: Patient is a 63-year-old female who presents to the emergency department by ambulance after falling and hitting her head on concrete. This was witnessed by her friends who state that the patient tripped and fell backward hitting her head, she had no loss of consciousness. Patient denies any back or neck pain. She is anticoagulated with Xarelto and takes aspirin daily. EMS reports that the patient was able to get up and transfer to their cot without difficulty. She denies extremity injuries. No medications given prior to arrival. Related Data Home Medications ?Medication ?Instructions ?Recorded ?Confirmed aspirin 81 mg tablet,delayed 81 mg PO DAILY 04/05/23 01/03/24 release budesonide-formoterol HFA 160 2 puff inhalation BID 04/05/23 06/24/23 mcg-4.5 mcg/actuation aerosol inhaler (Symbicort) calcium carbonate 500 mg-vitamin 1 tab PO BID 04/05/23 01/03/24 D3 10 mcg (400 unit) tablet carvedilol 12.5 mg tablet 12.5 mg PO BID 04/05/23 01/03/24 empagliflozin 25 mg tablet 25 mg PO DAILY 04/05/23 01/03/24 (Jardiance) gabapentin 600 mg tablet 600 mg PO TID 04/05/23 01/03/24 insulin aspart U-100 100 unit/mL 1 sliding scale dose subcut 04/05/23 01/03/24 (3 mL) subcutaneous pen (Novolog TIDWMEAL FlexPen U-100 Insulin aspart) insulin glargine 100 unit/mL (3 60 unit subcut QPM 04/05/23 01/03/24 mL) subcutaneous pen (Lantus Solostar U-100 Insulin) loratadine 10 mg tablet 10 mg PO DAILY 04/05/23 06/24/23 losartan 100 mg tablet 100 mg PO DAILY 04/05/23 01/03/24 pantoprazole 40 mg tablet,delayed 40 mg PO DAILY 04/05/23 01/03/24 release potassium chloride 10 mEq 10 meq PO DAILY 04/05/23 01/03/24 capsule,extended release rivaroxaban 20 mg tablet (Xarelto) 20 mg PO DAILY 04/05/23 01/03/24 rosuvastatin 5 mg tablet 5 mg PO DAILY 04/05/23 01/03/24 spironolactone 25 mg tablet 25 mg PO BID 04/05/23 01/03/24 tiotropium bromide 2.5 2 puff inhalation DAILY 04/05/23 06/24/23 mcg/actuation mist for inhalation (Spiriva Respimat) cholecalciferol (vitamin D3) 50 01/03/24 mcg (2,000 unit) tablet furosemide 20 mg tablet mg 01/03/24 Previous Rx's ?Medication ?Instructions ?Recorded albuterol sulfate 90 mcg/actuation 2 inh inhalation Q4H PRN shortness 06/25/23 aerosol inhaler of breath or wheezing #8.5 grams albuterol sulfate 2.5 mg/3 mL 2.5 mg (3 mL) inhalation Q6H PRN 09/16/23 (0.083 %) solution for nebulization shortness of breath or wheezing #90 mL Allergies Allergy/AdvReac Type Severity Reaction Status Date / Time ciprofloxacin [From Cipro] AdvReac Intermediate Vomiting Verified 01/06/24 20:21 metronidazole [From Flagyl] AdvReac Intermediate Vomiting Verified 01/06/24 20:21 Penicillins AdvReac Intermediate Vomiting Verified 01/06/24 20:21 sulfamethoxazole AdvReac Intermediate Vomiting Verified 01/06/24 20:21 [From Bactrim] trimethoprim [From Bactrim] AdvReac Intermediate Vomiting Verified 01/06/24 20:21 Opioid HPI Opioid Management Most Recent Opioid Data: Last Pain Scale 5 01/06/24 21:59 Review of Systems ROS Constitutional Denies: fever or chills Ears, nose, mouth, and throat Denies: throat pain Cardiovascular Denies: chest pain Respiratory Denies: shortness of breath or cough Gastrointestinal Denies: nausea or vomiting Musculoskeletal Denies: back pain, neck pain or extremity pain Hematologic/Lymphatic Reports: easy bruising and easy bleeding [facility] Medical History (Updated 01/06/24 @ 22:00 by KIAN Dumont) A-fib ?I48.91 - Unspecified atrial fibrillation (ICD-10) Hypertension ?I10 - Essential (primary) hypertension (ICD-10) Diabetes ?E11.9 - Type 2 diabetes mellitus without complications (ICD-10) Acute shoulder pain ?M25.519 - Pain in unspecified shoulder (ICD-10) Hyperlipidemia ?E78.5 - Hyperlipidemia, unspecified (ICD-10) Depression ?F32.A - Depression, unspecified (ICD-10) Chronic obstructive pulmonary disease ?J44.9 - Chronic obstructive pulmonary disease, unspecified (ICD-10) Surgical History (Updated 06/24/23 @ 12:13 by Aliyah Ruiz RN) History of appendectomy ?Z90.49 - Acquired absence of other specified parts of digestive tract (ICD-10) Hx of cholecystectomy ?Z90.49 - Acquired absence of other specified parts of digestive tract (ICD-10) H/O: hysterectomy ?Z90.710 - Acquired absence of both cervix and uterus (ICD-10) Family History (Updated 06/24/23 @ 12:13 by Aliyah Ruiz RN) Mother Family history of diabetes mellitus Grandfather Family history of diabetes mellitus Father Family history of stroke Social History Within the past year, how often did you have a drink containing alcohol: never Score interpretation: A score less than 3 is consistent with normal alcohol consumption. Smoking status: Current every day smoker Non-prescribed substance use: denies use Highest level of school completed/degree received: high school graduate Gender Identity: female Exam Narrative Exam Narrative: Gen.: Awake, alert, in no distress Head: Normocephalic, swelling noted to the occiput with no abrasions or lacerations. No bleeding noted ENT: Moist mucous membranes, no evidence of facial or dental injury, cervical spine is nontender Respiratory: No respiratory distress, lungs clear bilaterally Cardio: Regular rate and rhythm Back: No bony point tenderness of the T-spine or L-spine Extremities: Moves extremities equally, no injuries noted Psych: Normal mood and affect Neuro: No focal neuro deficit Skin: Warm, dry, intact Constitutional Vital Signs, click to edit/add: Last Vital Signs Temp 98.0 F 01/06/24 20:22 Pulse 82 01/06/24 20:22 Resp 18 01/06/24 20:22 Pulse Ox 95 01/06/24 20:22 O2 Del Method Nasal Cannula 01/06/24 20:22 O2 Flow Rate 2 01/06/24 20:22 Course Vital Signs Vital signs: Vital Signs Temperature 98.0 F 01/06/24 20:22 Pulse Rate 82 01/06/24 20:22 Respiratory Rate 18 01/06/24 20:22 Pulse Oximetry 95 01/06/24 20:22 Oxygen Delivery Method Nasal Cannula 01/06/24 20:22 Oxygen Delivery Flow Rate 2 01/06/24 20:22 Temperature 98.0 F 01/06/24 20:22 Pulse Rate 82 01/06/24 20:22 Respiratory Rate 18 01/06/24 20:22 Pulse Oximetry 95 01/06/24 20:22 Oxygen Delivery Method Nasal Cannula 01/06/24 20:22 Oxygen Delivery Flow Rate 2 01/06/24 20:22 Medical Decision Making MDM Narrative Medical decision making narrative: 2199: Patient sent for a head CT, C-spine CT on arrival. She is awake, alert and in no distress. She was placed on oxygen by nasal cannula as she wears this at home. Vital signs stable and the patient has a normal neuroexam. CTs of the head and C-spine are unremarkable but on ambulating the patient, she was found to have swelling to the right elbow, she is able to move the arm and ambulate in the ER. She did not require any medication for pain. X-rays of the right elbow are pending and case is turned over to attending physician for disposition. SHARED APC VISIT, PHYSICIAN ATTESTATION: [id number] I performed a substantive part of the MDM during the patient?s E/M visit. I personally evaluated and examined the patient. I personally made or approved the documented management plan and acknowledge its risk of complications. Medical Records Medical records reviewed: Yes I reviewed the patient's medical records Imaging Data CT scan - head: Attestation: I have reviewed the pertinent imaging results. Radiologist's impression: ITS Impressions Cervical Spine CT 01/06/24 20:20 IMPRESSION: No acute fracture. Electronically authenticated by: BLANKA YANG Date: 01/06/2024 21:[address] 01/06/24 20:20 IMPRESSION: 1. No acute intracranial abnormality. 2. Right posterior parietal scalp soft tissue swelling. Electronically authenticated by: ELISSA DONOVAN Date: 01/06/2024 21:32 Discharge Plan Discharge Chief Complaint: Fall Clinical Impression: Fall, Closed head injury Patient Disposition: Still a Patient Prescriptions / Home Meds: No Action albuterol sulfate 90 mcg/actuation HFA aerosol inhaler 2 inh inhalation Q4H PRN (Reason: shortness of breath or wheezing) Qty: 8.5 0RF albuterol sulfate 2.5 mg /3 mL (0.083 %) solution for nebulization 2.5 mg inhalation Q6H PRN (Reason: shortness of breath or wheezing) Qty: 90 0RF furosemide 20 mg tablet cholecalciferol (vitamin D3) 50 mcg (2,000 unit) tablet aspirin 81 mg tablet,delayed release (DR/EC) 81 mg PO DAILY budesonide-formoterol [Symbicort] 160-4.5 mcg/actuation HFA aerosol inhaler 2 puff INHALATION BID calcium carbonate-vitamin D3 500 mg-10 mcg (400 unit) tablet 1 tab PO BID carvedilol 12.5 mg tablet 12.5 mg PO BID Jardiance 25 mg tablet 25 mg PO DAILY gabapentin 600 mg tablet 600 mg PO TID insulin aspart U-100 [Novolog FlexPen U-100 Insulin] 100 unit/mL (3 mL) insulin pen 1 sliding scale dose SUBCUT TIDWMEAL insulin glargine [Lantus Solostar U-100 Insulin] 100 unit/mL (3 mL) insulin pen 60 unit SUBCUT QPM loratadine 10 mg tablet 10 mg PO DAILY losartan 100 mg tablet 100 mg PO DAILY pantoprazole 40 mg tablet,delayed release (DR/EC) 40 mg PO DAILY potassium chloride 10 mEq capsule, extended release 10 meq PO DAILY Xarelto 20 mg tablet 20 mg PO DAILY rosuvastatin 5 mg tablet 5 mg PO DAILY spironolactone 25 mg tablet 25 mg PO BID Spiriva Respimat 2.5 mcg/actuation mist 2 puff INHALATION DAILY Print Language: Slovenian Referrals: Maira Rush, TRUCKING MANAGER [Primary Care Provider] - 1 week
[2024-01-06 20:22] VITALS: PULSE 82; TEMP 36.7; O2SAT 95; BMI 33.9
--- NOTE | 2024-01-06 21:52 | XR_ITS ---
The [address] [address] Patient Name: RODDY HORN MRN: [id number] date: 1960 Sex: F Assigned Patient Location: ED.MAIN Current Patient Location: ER Accession/Order Number: [id number] Exam Date: 01/06/2024 22:05 Report Date: 01/07/2024 00:15 At the request of: CHASE HUNT Procedure: XR elbow RT min 3V EXAM: XR elbow RT min 3V HISTORY: fall onto right elbow with posterior elbow swelling and pain. COMPARISON: None. TECHNIQUE: AP, oblique and lateral left elbow x-rays. FINDINGS: No acute fracture or osseous malalignment is seen. There is a large thin osteophyte off the anterior distal humerus best seen on the lateral view. There is prominent posteromedial soft tissue swelling without soft tissue gas or foreign body. XR/XR elbow RT min 3V IMPRESSION: Prominent posteromedial soft tissue swelling without acute right elbow fracture or osseous malalignment. Electronically authenticated by: HARVEY SOMMERS Date: 01/07/2024 00:15
--- NOTE | 2024-01-07 00:33 | ED.FALL1 ---
HPI HPI - Fall General Chief Complaint: Fall Stated Complaint: FALL/HEAD INJURY Time Seen by Provider: 01/06/24 20:20 Source: patient Mode of arrival: ambulance Limitations: no limitations History of Present Illness HPI Narrative: 63-year-old female presented for fall causing a hematoma to her scalp. Please see the PAs for H&P Related Data Home Medications ?Medication ?Instructions ?Recorded ?Confirmed aspirin 81 mg tablet,delayed 81 mg PO DAILY 04/05/23 01/03/24 release budesonide-formoterol HFA 160 2 puff inhalation BID 04/05/23 06/24/23 mcg-4.5 mcg/actuation aerosol inhaler (Symbicort) calcium carbonate 500 mg-vitamin 1 tab PO BID 04/05/23 01/03/24 D3 10 mcg (400 unit) tablet carvedilol 12.5 mg tablet 12.5 mg PO BID 04/05/23 01/03/24 empagliflozin 25 mg tablet 25 mg PO DAILY 04/05/23 01/03/24 (Jardiance) gabapentin 600 mg tablet 600 mg PO TID 04/05/23 01/03/24 insulin aspart U-100 100 unit/mL 1 sliding scale dose subcut 04/05/23 01/03/24 (3 mL) subcutaneous pen (Novolog TIDWMEAL FlexPen U-100 Insulin aspart) insulin glargine 100 unit/mL (3 60 unit subcut QPM 04/05/23 01/03/24 mL) subcutaneous pen (Lantus Solostar U-100 Insulin) loratadine 10 mg tablet 10 mg PO DAILY 04/05/23 06/24/23 losartan 100 mg tablet 100 mg PO DAILY 04/05/23 01/03/24 pantoprazole 40 mg tablet,delayed 40 mg PO DAILY 04/05/23 01/03/24 release potassium chloride 10 mEq 10 meq PO DAILY 04/05/23 01/03/24 capsule,extended release rivaroxaban 20 mg tablet (Xarelto) 20 mg PO DAILY 04/05/23 01/03/24 rosuvastatin 5 mg tablet 5 mg PO DAILY 04/05/23 01/03/24 spironolactone 25 mg tablet 25 mg PO BID 04/05/23 01/03/24 tiotropium bromide 2.5 2 puff inhalation DAILY 04/05/23 06/24/23 mcg/actuation mist for inhalation (Spiriva Respimat) cholecalciferol (vitamin D3) 50 01/03/24 mcg (2,000 unit) tablet furosemide 20 mg tablet mg 01/03/24 Previous Rx's ?Medication ?Instructions ?Recorded albuterol sulfate 90 mcg/actuation 2 inh inhalation Q4H PRN shortness 06/25/23 aerosol inhaler of breath or wheezing #8.5 grams albuterol sulfate 2.5 mg/3 mL 2.5 mg (3 mL) inhalation Q6H PRN 09/16/23 (0.083 %) solution for nebulization shortness of breath or wheezing #90 mL Allergies Allergy/AdvReac Type Severity Reaction Status Date / Time ciprofloxacin [From Cipro] AdvReac Intermediate Vomiting Verified 01/06/24 20:21 metronidazole [From Flagyl] AdvReac Intermediate Vomiting Verified 01/06/24 20:21 Penicillins AdvReac Intermediate Vomiting Verified 01/06/24 20:21 sulfamethoxazole AdvReac Intermediate Vomiting Verified 01/06/24 20:21 [From Bactrim] trimethoprim [From Bactrim] AdvReac Intermediate Vomiting Verified 01/06/24 20:21 Opioid HPI Opioid Management Most Recent Pain and Opioid Data: Last Pain Scale 5 01/06/24 21:59 PFSH PFSH Medical History (Updated 01/06/24 @ 22:00 by KIAN Dumont) A-fib ?I48.91 - Unspecified atrial fibrillation (ICD-10) Hypertension ?I10 - Essential (primary) hypertension (ICD-10) Diabetes ?E11.9 - Type 2 diabetes mellitus without complications (ICD-10) Acute shoulder pain ?M25.519 - Pain in unspecified shoulder (ICD-10) Hyperlipidemia ?E78.5 - Hyperlipidemia, unspecified (ICD-10) Depression ?F32.A - Depression, unspecified (ICD-10) Chronic obstructive pulmonary disease ?J44.9 - Chronic obstructive pulmonary disease, unspecified (ICD-10) Surgical History (Updated 06/24/23 @ 12:13 by Aliyah Ruiz RN) History of appendectomy ?Z90.49 - Acquired absence of other specified parts of digestive tract (ICD-10) Hx of cholecystectomy ?Z90.49 - Acquired absence of other specified parts of digestive tract (ICD-10) H/O: hysterectomy ?Z90.710 - Acquired absence of both cervix and uterus (ICD-10) Family History (Updated 06/24/23 @ 12:13 by Aliyah Ruiz RN) Mother Family history of diabetes mellitus Grandfather Family history of diabetes mellitus Father Family history of stroke Social History Within the past year, how often did you have a drink containing alcohol: never Score interpretation: A score less than 3 is consistent with normal alcohol consumption. Smoking status: Current every day smoker Non-prescribed substance use: denies use Highest level of school completed/degree received: high school graduate Gender Identity: female Exam Constitutional Vital Signs, click to edit/add: Last Vital Signs Temp 98.0 F 01/06/24 20:22 Pulse 82 01/06/24 20:22 Resp 18 01/06/24 20:22 Pulse Ox 95 01/06/24 20:22 O2 Del Method Nasal Cannula 01/06/24 20:22 O2 Flow Rate 2 01/06/24 20:22 Course Vital Signs Vital signs: Vital Signs Temperature 98.0 F 01/06/24 20:22 Pulse Rate 82 01/06/24 20:22 Respiratory Rate 18 01/06/24 20:22 Pulse Oximetry 95 01/06/24 20:22 Oxygen Delivery Method Nasal Cannula 01/06/24 20:22 Oxygen Delivery Flow Rate 2 01/06/24 20:22 Temperature 98.0 F 01/06/24 20:22 Pulse Rate 82 01/06/24 20:22 Respiratory Rate 18 01/06/24 20:22 Pulse Oximetry 95 01/06/24 20:22 Oxygen Delivery Method Nasal Cannula 01/06/24 20:22 Oxygen Delivery Flow Rate 2 01/06/24 20:22 MDM - Fall MDM Narrative Medical decision making narrative: CT brain and C-spine as well as the elbow x-ray are negative per radiologist and she is able to be discharged home. Findings were discussed with the patient. Differential Diagnosis Differential diagnosis: Likely other (Scalp contusion, intracranial hemorrhage, elbow fracture, elbow contusion) Imaging Data CT scan - head: Radiologist's impression: ITS Impressions Cervical Spine CT 01/06/24 20:20 IMPRESSION: No acute fracture. Electronically authenticated by: BLANKA YANG Date: 01/06/2024 21:[address] 01/06/24 20:20 IMPRESSION: 1. No acute intracranial abnormality. 2. Right posterior parietal scalp soft tissue swelling. Electronically authenticated by: ELISSA DONOVAN Date: 01/06/2024 21:32 Elbow X-Ray 01/06/24 21:52 IMPRESSION: Prominent posteromedial soft tissue swelling without acute right elbow fracture or osseous malalignment. Electronically authenticated by: HARVEY SOMMERS Date: 01/07/2024 00:15 Discharge Plan Discharge Stand Alone Forms: Portal Instructions Chief Complaint: Fall Clinical Impression: Fall, Closed head injury Patient Disposition: Home, Self-Care Time of Disposition Decision: 00:33 Condition: Good Mode of Transportation: Private Vehicle Prescriptions / Home Meds: No Action albuterol sulfate 90 mcg/actuation HFA aerosol inhaler 2 inh inhalation Q4H PRN (Reason: shortness of breath or wheezing) Qty: 8.5 0RF albuterol sulfate 2.5 mg /3 mL (0.083 %) solution for nebulization 2.5 mg inhalation Q6H PRN (Reason: shortness of breath or wheezing) Qty: 90 0RF furosemide 20 mg tablet cholecalciferol (vitamin D3) 50 mcg (2,000 unit) tablet aspirin 81 mg tablet,delayed release (DR/EC) 81 mg PO DAILY budesonide-formoterol [Symbicort] 160-4.5 mcg/actuation HFA aerosol inhaler 2 puff INHALATION BID calcium carbonate-vitamin D3 500 mg-10 mcg (400 unit) tablet 1 tab PO BID carvedilol 12.5 mg tablet 12.5 mg PO BID Jardiance 25 mg tablet 25 mg PO DAILY gabapentin 600 mg tablet 600 mg PO TID insulin aspart U-100 [Novolog FlexPen U-100 Insulin] 100 unit/mL (3 mL) insulin pen 1 sliding scale dose SUBCUT TIDWMEAL insulin glargine [Lantus Solostar U-100 Insulin] 100 unit/mL (3 mL) insulin pen 60 unit SUBCUT QPM loratadine 10 mg tablet 10 mg PO DAILY losartan 100 mg tablet 100 mg PO DAILY pantoprazole 40 mg tablet,delayed release (DR/EC) 40 mg PO DAILY potassium chloride 10 mEq capsule, extended release 10 meq PO DAILY Xarelto 20 mg tablet 20 mg PO DAILY rosuvastatin 5 mg tablet 5 mg PO DAILY spironolactone 25 mg tablet 25 mg PO BID Spiriva Respimat 2.5 mcg/actuation mist 2 puff INHALATION DAILY Print Language: Tamazight Instructions: Head Injury (ED), Fall Prevention (ED) Referrals: Maira Rush NP [Primary Care Provider] - 1 week
== END 2024-01-07 01:06 | disposition home or self-care (01) ==
PROVIDERS: Emergency Provider Emergency Medicine; PCP Nurse Practitioner
DX: S09.8XXA Other specified injuries of head, initial encounter (principal); W01.10XA Fall on same level from slipping, tripping and stumbling with subsequent striking against unspecified object, initial encounter; Z79.01 Long term (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 of anticoagulants; Z79.82 Long term (current) use of aspirin; F17.210 Nicotine dependence, cigarettes, uncomplicated
CPT/HCPCS: 70450; 72125; 73080; 99284

== ENCOUNTER 2024-02-24 13:24 | Emergency (ER) | payer OTHER, SELFPAY ==
[2024-02-24] VITALS (13 sets, daily range): BP systolic 123–153; BP diastolic 65–73; PULSE 57–77; TEMP 36.6; O2SAT 94–98; BMI 34.1
--- NOTE | 2024-02-24 13:42 | ECG_ITS ---
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
--- NOTE | 2024-02-24 13:45 | ED.DIZZY1 ---
HPI - Dizziness General Chief Complaint: Dizziness Time Seen by Provider: 02/24/24 13:28 Source: patient and EMR Mode of arrival: ambulance Limitations: no limitations History of Present Illness HPI Narrative: 63 year old female presents to the ED via EMS for dizziness. Onset was several days ago, but it became worse today. States the room is spinning at times. Denies fever, chills, injury, weakness. Denies NORMAN, vision changes, CP, SOB. Denies abd pain, N/V, urinary sx. She had a fall just over one month ago and was at a rehab facility for about 20 days. States she has been home for two weeks. Related Data Home Medications ?Medication ?Instructions ?Recorded ?Confirmed aspirin 81 mg tablet,delayed 81 mg PO DAILY 04/05/23 02/24/24 release budesonide-formoterol HFA 160 2 puff inhalation BID 04/05/23 02/24/24 mcg-4.5 mcg/actuation aerosol inhaler (Symbicort) calcium carbonate 500 mg-vitamin 1 tab PO BID 04/05/23 01/03/24 D3 10 mcg (400 unit) tablet carvedilol 12.5 mg tablet 12.5 mg PO BID 04/05/23 02/24/24 empagliflozin 25 mg tablet 25 mg PO DAILY 04/05/23 02/24/24 (Jardiance) gabapentin 600 mg tablet 600 mg PO TID 04/05/23 02/24/24 insulin aspart U-100 100 unit/mL 1 sliding scale dose subcut 04/05/23 02/24/24 (3 mL) subcutaneous pen (Novolog TIDWMEAL FlexPen U-100 Insulin aspart) insulin glargine 100 unit/mL (3 60 unit subcut QPM 04/05/23 02/24/24 mL) subcutaneous pen (Lantus Solostar U-100 Insulin) losartan 100 mg tablet 100 mg PO DAILY 04/05/23 02/24/24 pantoprazole 40 mg tablet,delayed 40 mg PO DAILY 04/05/23 02/24/24 release potassium chloride 10 mEq 10 meq PO DAILY 04/05/23 02/24/24 capsule,extended release rivaroxaban 20 mg tablet (Xarelto) 20 mg PO DAILY 04/05/23 02/24/24 rosuvastatin 5 mg tablet 5 mg PO DAILY 04/05/23 02/24/24 spironolactone 25 mg tablet 25 mg PO BID 04/05/23 02/24/24 tiotropium bromide 2.5 2 puff inhalation DAILY 04/05/23 02/24/24 mcg/actuation mist for inhalation (Spiriva Respimat) furosemide 20 mg tablet 20 mg PO DAILY 01/03/24 02/24/24 paroxetine HCl 10 mg tablet 10 mg PO DAILY 02/24/24 02/24/24 Previous Rx's ?Medication ?Instructions ?Recorded albuterol sulfate 90 mcg/actuation 2 inh inhalation Q4H PRN shortness 06/25/23 aerosol inhaler of breath or wheezing #8.5 grams albuterol sulfate 2.5 mg/3 mL 2.5 mg (3 mL) inhalation Q6H PRN 09/16/23 (0.083 %) solution for nebulization shortness of breath or wheezing #90 mL meclizine 25 mg tablet 25 mg PO TID PRN dizziness #15 tabs 02/24/24 Allergies Allergy/AdvReac Type Severity Reaction Status Date / Time ciprofloxacin [From Cipro] AdvReac Intermediate Vomiting Verified 02/24/24 13:26 metronidazole [From Flagyl] AdvReac Intermediate Vomiting Verified 02/24/24 13:26 Penicillins AdvReac Intermediate Vomiting Verified 02/24/24 13:26 sulfamethoxazole AdvReac Intermediate Vomiting Verified 02/24/24 13:26 [From Bactrim] trimethoprim [From Bactrim] AdvReac Intermediate Vomiting Verified 02/24/24 13:26 Review of Systems ROS Constitutional Denies: fever or chills Eyes Denies: change in vision or blurry vision Ears, nose, mouth, and throat Reports: vertigo; Denies: throat pain, neck pain, ear pain, ear discharge, tinnitus, nasal discharge or nasal congestion Cardiovascular Denies: chest pain or palpitations Respiratory Denies: shortness of breath or cough Gastrointestinal Denies: abdominal pain, nausea, vomiting or diarrhea Genitourinary Denies: painful urination, urinary frequency or urinary urgency Musculoskeletal Denies: back pain or neck pain Integumentary/Breast Denies: rash or itching Neurological Reports: dizziness and vertigo; Denies: headache, numbness in extremities, weakness in extremities, confusion or slurred speech [facility] Medical History (Updated 02/24/24 @ 15:52 by Violette Duckworth) A-fib ?I48.91 - Unspecified atrial fibrillation (ICD-10) Hypertension ?I10 - Essential (primary) hypertension (ICD-10) Diabetes ?E11.9 - Type 2 diabetes mellitus without complications (ICD-10) Acute shoulder pain ?M25.519 - Pain in unspecified shoulder (ICD-10) Hyperlipidemia ?E78.5 - Hyperlipidemia, unspecified (ICD-10) Depression ?F32.A - Depression, unspecified (ICD-10) Chronic obstructive pulmonary disease ?J44.9 - Chronic obstructive pulmonary disease, unspecified (ICD-10) Surgical History (Updated 06/24/23 @ 12:13 by Aliyah Ruiz RN) History of appendectomy ?Z90.49 - Acquired absence of other specified parts of digestive tract (ICD-10) Hx of cholecystectomy ?Z90.49 - Acquired absence of other specified parts of digestive tract (ICD-10) H/O: hysterectomy ?Z90.710 - Acquired absence of both cervix and uterus (ICD-10) Family History (Updated 06/24/23 @ 12:13 by Aliyah Ruiz RN) Mother Family history of diabetes mellitus Grandfather Family history of diabetes mellitus Father Family history of stroke Social History Within the past year, how often did you have a drink containing alcohol: never Score interpretation: A score less than 3 is consistent with normal alcohol consumption. Smoking status: Current every day smoker Non-prescribed substance use: denies use Highest level of school completed/degree received: high school graduate Little interest or pleasure in doing things: not at all Feeling down, depressed, or hopeless: not at all Gender Identity: female Exam Constitutional Vital Signs, click to edit/add: Last Vital Signs Temp 98 F 02/24/24 13:26 Pulse 77 02/24/24 15:10 Resp 16 02/24/24 15:10 BP 123/65 02/24/24 15:00 Pulse Ox 95 02/24/24 15:10 O2 Del Method Room Air 02/24/24 13:26 Common normals: no apparent distress and oriented x3 General appearance: cooperative HENMT Common normals: normocephalic Face and sinus: normal facial exam Nose: external nose normal External ear: external ears normal External auditory canal: EACs normal Tympanic membrane: TMs normal bilaterally Mouth: oral and palatal mucosa normal, lip normal and tongue normal Throat: posterior oropharynx normal and uvula midline Eye Common normals: PERRL, EOMs intact bilaterally, conjunctivae normal and no scleral icterus Neck & C-Spine Common normals: supple Chest Chest: symmetrical chest wall rise Respiratory Common normals: normal respiratory effort and clear to auscultation bilaterally Effort & inspection: able to speak in complete sentences Cardio Common normals: regular rate and regular rhythm GI Common normals: soft to palpation and non-tender Neuro Common normals: oriented x3, CN's II-XII intact bilaterally and moves all extremities Sensorium/orientation: awake and alert Coordination/balance: [id number] test normal Speech: speech normal Course Vital Signs Vital signs: Vital Signs Temperature 98 F 02/24/24 13:26 Pulse Rate 65 02/24/24 13:26 Respiratory Rate 18 02/24/24 13:26 Blood Pressure 153/73 H 02/24/24 13:26 Pulse Oximetry 96 02/24/24 13:26 Oxygen Delivery Method Room Air 02/24/24 13:26 Temperature 98 F 02/24/24 13:26 Pulse Rate 77 02/24/24 15:10 Respiratory Rate 16 02/24/24 15:10 Blood Pressure 123/65 02/24/24 15:00 Pulse Oximetry 95 02/24/24 15:10 Oxygen Delivery Method Room Air 02/24/24 13:26 MDM - Dizziness MDM Narrative Medical decision making narrative: The patient was given IV fluids and Antivert with relief of her symptoms. Urine culture was pending. CBC and CMP were unremarkable. She was comfortable being discharged home. A prescription was provided for Antivert. She was ambulatory in the ED prior to discharge. Her neighbor was picking her up today. Follow up with pcp for a recheck, further evaluation and treatment. Return precautions were discussed. Medical Records Attestation: I reviewed the patient's medical records. Lab Data Attestation: I reviewed the patient's lab results. Labs: Lab Results 02/24/24 02/24/24 Range/Units 13:35 14:00 WBC 8.9 (4.0-11.0) 10^3/uL RBC 5.30 (4.20-5.40) 10^6/uL Hgb 16.6 H (12.0-16.0) g/dL Hct 50.1 H (36.0-48.0) % MCV 94.5 (81.0-99.0) fL MCH 31.3 (26.7-34.0) pg MCHC 33.1 (29.9-35.2) g/dL RDW 13.1 (11.0-15.0) % Plt Count 249 (150-450) 10^3/uL MPV 11.3 (9.5-13.5) fL Neut % (Auto) 54.5 (43.0-75.0) % Lymph % (Auto) 35.9 (20.5-60.0) % [place] % (Auto) 7.2 (1.7-12.0) % Eos % (Auto) 1.9 (0.9-7.0) % Baso % (Auto) 0.3 (0.2-2.0) % Neut # (Auto) 4.9 (1.4-6.5) 10^3/uL Lymph # (Auto) 3.2 (1.2-3.8) 10^3/uL [place] # (Auto) 0.6 (0.3-0.8) 10^3/uL Eos # (Auto) 0.2 (0.0-0.7) 10^3/uL Baso # (Auto) 0.0 (0.0-0.1) 10^3/uL Abs Immat Gran (auto) 0.02 (0.00-0.03) 10^3/uL Imm/Tot Granulo (auto) 0.2 (0.0-0.5) % Sodium 134 L (136-145) mmol/L Potassium 3.8 (3.5-5.1) mmol/L Chloride 98 (98-107) mmol/L Carbon Dioxide 32.4 H (21.0-32.0) mmol/L Anion Gap 7.4 BUN 9.0 (7.0-18.0) mg/dL Creatinine 0.77 (0.55-1.02) mg/dL Est GFR ( Amer) >60 (>=60) Est GFR (Non-Af Amer) >60 (>=60) BUN/Creatinine Ratio 11.7 Glucose 252 H (74-106) mg/dL Calcium 9.2 (8.5-10.1) mg/dL Total Bilirubin 0.5 (0.2-1.0) mg/dL AST 15 (15-37) U/L ALT 16 (14-59) U/L Alkaline Phosphatase 91 (46-116) U/L Total Protein 6.9 (6.4-8.2) g/dL Albumin 3.3 L (3.4-5.0) g/dL Globulin 3.6 g/dL Albumin/Globulin Ratio 0.9 Urine Color Lt. yellow (YELLOW) Urine Clarity Clear (CLEAR) Urine pH 6.0 (5.0-9.0) Ur Specific [place] <=1.005 A (1.005-1.025) Urine Protein Negative (NEG/TRACE) mg/dL Urine Glucose (UA) >=1000 A (NEGATIVE) mg/dL Urine Ketones Negative (NEGATIVE) mg/dL Urine Occult Blood Trace-i (NEGATIVE) Urine Nitrite Negative (NEGATIVE) Urine Bilirubin Negative (NEGATIVE) Urine Urobilinogen 0.2 (0.2-1.0) EU/dL Ur Leukocyte Esterase Negative (NEGATIVE) Urine RBC 2-5 A (0-2) #/HPF Urine WBC 2-5 A (NONE SEEN) #/HPF Ur Squamous Epith Cells Few A (NONE/RARE) #/LPF Urine Crystals Seen A (None Seen) #/HPF Amorphous Sediment Rare Urine Bacteria Small A (NONE SEEN) #/HPF Urine Casts None seen (NONE SEEN) #/LPF Urine Mucus Trace A (NONE SEEN) Urine Yeast Seen A (NONE SEEN) Ur Culture Indicated? Yes ECG Data Attestation: ?I have reviewed the pertinent ECG results. (EKG was reviewed by the attending physician. It showed sinus rhythm at a rate of 60. No acute ST segment changes. ) Interpretation: Measurements Intervals [place] Rate: 60 P: 43 IN: 174 QRS: -66 QRSD: 86 T: 64 QT: 440 QTc: 440 Interpretive Statements 1100 Sinus rhythm 3234 Anteroseptal myocardial infarction, age undetermined 7200 Abnormal left axis deviation 9150 abnormal ECG No previous ECG available for comparison Discharge Plan Discharge Chief Complaint: Dizziness Clinical Impression: Vertigo Patient Disposition: Home, Self-Care Time of Disposition Decision: 15:51 Condition: Good Mode of Transportation: Private Vehicle Prescriptions / Home Meds: New meclizine 25 mg tablet 25 mg PO TID PRN (Reason: dizziness) Qty: 15 0RF No Action albuterol sulfate 90 mcg/actuation HFA aerosol inhaler 2 inh inhalation Q4H PRN (Reason: shortness of breath or wheezing) Qty: 8.5 0RF albuterol sulfate 2.5 mg /3 mL (0.083 %) solution for nebulization 2.5 mg inhalation Q6H PRN (Reason: shortness of breath or wheezing) Qty: 90 0RF furosemide 20 mg tablet 20 mg PO DAILY aspirin 81 mg tablet,delayed release (DR/EC) 81 mg PO DAILY budesonide-formoterol [Symbicort] 160-4.5 mcg/actuation HFA aerosol inhaler 2 puff INHALATION BID calcium carbonate-vitamin D3 500 mg-10 mcg (400 unit) tablet 1 tab PO BID carvedilol 12.5 mg tablet 12.5 mg PO BID Jardiance 25 mg tablet 25 mg PO DAILY gabapentin 600 mg tablet 600 mg PO TID insulin aspart U-100 [Novolog FlexPen U-100 Insulin] 100 unit/mL (3 mL) insulin pen 1 sliding scale dose SUBCUT TIDWMEAL insulin glargine [Lantus Solostar U-100 Insulin] 100 unit/mL (3 mL) insulin pen 60 unit SUBCUT QPM losartan 100 mg tablet 100 mg PO DAILY pantoprazole 40 mg tablet,delayed release (DR/EC) 40 mg PO DAILY potassium chloride 10 mEq capsule, extended release 10 meq PO DAILY Xarelto 20 mg tablet 20 mg PO DAILY rosuvastatin 5 mg tablet 5 mg PO DAILY spironolactone 25 mg tablet 25 mg PO BID Spiriva Respimat 2.5 mcg/actuation mist 2 puff INHALATION DAILY paroxetine HCl 10 mg tablet 10 mg PO DAILY Print Language: Vietnamese Instructions: Vertigo (ED), Dizziness (ED) Additional Instructions: Return to the ER for new or worsening symptoms. Referrals: Maira Rush NP [Primary Care Provider] - 1 week Discharge Date/Time: 02/24/24 16:02
--- OUTSIDE RECORDS SUMMARY | 2024-02-24 13:54 | XMS_ITS | CCD ---
Author Organization [facility] Care Team Providers Care Trouble Shooting Mechanic Name Role Phone PHYSICIAN, DEFAULT Admitting Unavailable PHYSICIAN, DEFAULT Attending Unavailable AICHHOLZ, MAIRA Primary Care Unavailable PHYSICIAN, DEFAULT Admitting Unavailable PHYSICIAN, DEFAULT Attending Unavailable AICHHOLZ, MAIRA Primary Care Unavailable AICHHOLZ, MANAGER ADVERTISING MAIRA Primary Care Unavailable SACHA MONTANO Admitting Unavailable KIAN POTTS Consulting Unavailabl e SACHA MONTANO Attending Unavailable Ptarick Hart Consulting Unavailable HANNAH TOVAR Admitting Unavailable AICHHOLZ, MANAGER ADVERTISING MAIRA Primary Care Unavailable HANNAH TOVAR Attending Unavailable HANNAH TOVAR Consulting Unavailable AICHHOLZ, MANAGER ADVERTISING MAIRA Consulting Unavailable AICHHOLZ, MANAGER ADVERTISING MAIRA Primary Care Unavailable AICHHOLZ, MANAGER ADVERTISING MAIRA Admitting Unavailable AICHHOLZ, MANAGER ADVERTISING MAIRA Attending Unavailable AICHHOLZ, MANAGER ADVERTISING MAIRA Attending Unavailable AICHHOLZ, MANAGER ADVERTISING MAIRA Consulting Unavailable AICHHOLZ, MANAGER ADVERTISING MAIRA Primary Care Unavailable AICHHOLZ, MANAGER ADVERTISING MAIRA Admitting Unavailable Patrick Hart Consulting Unavailable AICHHOLZ, MANAGER ADVERTISING MAIRA Attending Unavailable AICHHOLZ, MANAGER ADVERTISING MAIRA Consulting Unavailable AICHHOLZ, MANAGER ADVERTISING MAIRA Primary Care Unavailable AICHHOLZ, MANAGER ADVERTISING MAIRA Admitting Unavailable DR CORINE ANGELA V Consulting Unavailable AICHHOLZ, MANAGER ADVERTISING MAIRA Primary Care Unavailable AICHHOLZ, MANAGER ADVERTISING MAIRA Admitting Unavailable AICHHOLZ, MANAGER ADVERTISING MAIRA Attending Unavailable AICHHOLZ, MANAGER ADVERTISING MAIRA Consulting Unavailable DR TERI MAURO Admitting Unavailable AICHHOLZ, MANAGER ADVERTISING MAIRA Primary Care Unavailable DR TERI MAURO Attending Unavailable DR TERI MAURO Consulting Unavailable DR CORINE ANGELA V Consulting Unavailable DR BRANDON MCFARLANE Consulting Unavailable DR NEHA GATICA Consulting Unavailable YECENIA MONTERO Consulting Unavailable Aichholz INTERNET SECURITY SPECIALIST, Maira Unavailable Brandon Mcfarlane MD Primary Care Provider LORENZO ACE Attending Unavailable AICHMAIRA DOHERTY Primary Care Unavailable VIKTORIYA ADAM Attending Unavailable ROSS GILHAMID M Admitting Unavailable MARA, CHIKI Attending Unavailable CHIKI TERRY Referring Unavailable MAIRA RUSH Primary Care Unavailable YVES GIL M Attending Unavailable YVES GIL M Referring Unavailable AICHHOLGerson MAIRA J Primary Care Unavailable CHAPITO DAMICO Referring Unavailable AICHALI MAIRA J Primary Care Unavailable VICTOR MANUEL MAIRA Attending Unavailable VICTOR MANUEL MAIRA Attending Unavailable AICHHOLZ, MAIRA Attending Unavailable AICHHOLGerson, MAIRA Attending Unavailable Allergies Allergy Classification Reported Allergen(s) Allergy Type Date of Onset Reaction(s) Facility (2 sources) Ciprofloxacin Drug Allergy 10-11-19 12 [facility] (2 sources) metroNIDAZOLE Drug Allergy 10-11-19 12 [facility] (6 sources) Penicillins; Translations: [PENICILLINS] Drug allergy (disorder) 10-11-19 12 [facility] (2 sources) Sulfamethoxazole / Trimethoprim Drug Allergy 10-11-19 12 [facility] (7 sources) Ciprofloxacin; Translations: [CIPROFLOXACIN] Drug Allergy 05-21-20 14 GI intolerance [facility] (7 sources) metroNIDAZOLE; Translations: [METRONIDAZOLE] Drug Allergy 05-21-20 14 GI intolerance [facility] (3 sources) Penicillins Drug Allergy 06-29-19 24 GI intolerance [facility] (3 sources) Sulfamethoxazole Allergy to substance 06-29-19 24 GI intolerance [facility] (3 sources) Trimethoprim Drug Allergy 06-29-19 24 GI intolerance [facility] (4 sources) Sulfamethoxazole / Trimethoprim; Translations: [SULFAMETHOXAZOLE-TR IMETHOPRIM] Drug Allergy 05-21-20 14 [facility] Medications Current Medications Medication Drug Class(es) [...] disorder] Onset: 06-26-2023 06-26-2023 Chronic Cardiac dysrhythmias (7 sources) Paroxysmal atrial fibrillation; Translations: [Atrial fibrillation] Onset: 06-11-2022 07-18-2023 Chronic Chronic obstructive pulmonary disease and bronchiectasis (15 sources) Chronic obstructive pulmonary disease, unspecified; Translations: [Chronic obstructive pulmonary disease with (acute) lower respiratory infection] Onset: 04-19-2022 Chronic Congestive heart failure; nonhypertensive (1 source) Acute combined systolic (congestive) and diastolic (congestive) heart failure; Translations: [ACUTE COMB SYSTOLIC AND DIASTOLIC CHF] Onset: 04-19-2022 Chronic Diabetes mellitus with complications (16 sources) Type 2 diabetes mellitus with unspecified complications; Translations: [Type 2 diabetes mellitus with hyperglycemia] Onset: 04-19-2022 06-26-2023 Chronic Diabetes mellitus without complication (3 sources) Type 2 diabetes mellitus without complications; Translations: [TYPE 2 DM WITHOUT COMPLICATIONS] Onset: 06-11-2022 Chronic Diabetes mellitus without complication (1 source) Hyperglycemia, unspecified; Translations: [Hyperglycemia, unspecified] Onset: 01-16-2024 Episodic Disorders of lipid metabolism (13 sources) Hyperlipidemia, unspecified; Translations: [Pure hypercholesterolemia , unspecified] Onset: 11-27-2021 Chronic E Codes: Fall (1 source) Fall Onset: 01-16-2024 Esophageal disorders (6 sources) Gastro-esophageal reflux disease without esophagitis; Translations: [Gastroesophageal reflux disease] Onset: 06-11-2022 07-18-2023 Chronic Essential hypertension (8 sources) Essential (primary) hypertension; Translations: [Essential hypertension] Onset: 06-11-2022 06-26-2023 Chronic Fluid and electrolyte disorders (2 sources) Hypokalemia; Translations: [Hypo-osmolality and hyponatremia] Onset: 01-16-2024 Episodic Genitourinary symptoms and ill-defined conditions (3 sources) Incontinence; Translations: [Mixed incontinence] Onset: 07-18-2023 07-18-2023 Chronic Hypertension with complications and secondary hypertension (1 source) Hypertensive heart disease with heart failure; Translations: [HTN HEART DISEASE W/HEART FAIL] Onset: 04-19-2022 Chronic Malaise and fatigue (1 source) Weakness; Translations: [Weakness] Onset: 01-16-2024 Episodic Mood disorders (1 source) Major depressive disorder, [...] [Nicotine dependence, unspecified, uncomplicated] Onset: 06-11-2022 Chronic Suicide and intentional self-inflicted injury (1 source) Suicidal ideations; Translations: [Suicidal ideations] Onset: 01-16-2024 Episodic Unclassified (1 source) CONTACT W/AND (SUSP) EXPOS COVID-19; Translations: [CONTACT W/AND (SUSP) EXPOS COVID-19] Onset: 04-19-2022 Unclassified (1 source) Patient's noncompliance with other medical treatment and regimen due to unspecified reason; Translations: [Patient's noncompliance with other medical treatment and regimen due to unspecified reason] Onset: 01-16-2024 Unclassified (1 source) EMS Onset: 01-16-2024 Viral infection (4 sources) Disease caused by [...] Onset: 06-11-2022 Episodic Other aftercare (1 source) intermediate card tender (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 of aspirin; Translations: [CHAIN REPAIRER CURRENT USE OF ASPIRIN] Onset: 06-11-2022 Episodic Other aftercare (3 sources) intermediate card tender (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; Translations: [CHAIN REPAIRER CURRENT USE OF INSULIN] Onset: 06-11-2022 Episodic Other aftercare (1 source) Other intermodal customer service (current) drug therapy; Translations: [OTH LONGTERM CURRENT DRUG THERAPY] Onset: 06-11-2022 Episodic Other aftercare (1 source) correction (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 of anticoagulants; Translations: [CHAIN REPAIRER CURRNT USE ANTICOAGULANTS] Onset: 11-27-2021 Episodic Other [...] MALIG NEOPLASM OF BREAST] Onset: 06-25-2022 Episodic Residual codes; unclassified (1 source) Pain, unspecified; Translations: [Pain, unspecified] Onset: 07-12-2022 Episodic Respiratory failure; insufficiency; arrest (adult) (1 [...] Test Name Value Interpretation Reference Range Facility CBC AND AUTO DIFFon 01-22-20 ABSOLUTE BASOPHIL 0.0 X10E9/L Normal 0.0-0.2 [facility] Comment on above: Performed By: #### C BCA, 77387-3, CMP, 86965-7, 99963-6 #### [facility] ([id number]) [address] [place] [address] 14839 ABSOLUTE NEUTROPHIL 4.2 X10E9/L Normal 1.5-6.6 [facility] Comment on above: Performed By: #### Casey LUGO, 66018-2, CMP, 29732-7, 64186-7 #### [facility] ([id number]) [address] [place] [address] 27055 Basophils/100 WBC (Bld) 0.4 % Normal [facility] Comment on above: Performed By: #### Casey LUGO, 14467-8, CMP, 23099-0, 36868-9 #### [facility] ([id number]) [address] [place] [address] 41116 Eosinophils (Bld) [#/Vol] 0.2 10*3/uL Normal 0.0-0.4 [facility] Comment on above: Performed By: #### Casey LUGO, 92135-2, CMP, 24858-0, 81250-2 #### [facility] ([id number]) [address] [place] [address] 80899 Eosinophils/100 WBC (Bld) 2.6 % Normal [facility] Comment on above: Performed By: #### Casey LUGO, 44545-4, CMP, 28250-2, 64785-2 #### [facility] ([id number]) [address] [place] [address] 28989 Erythrocyte distribution width (RBC) [Ratio] 13.5 % Normal 11.5-15.0 [facility] Comment on above: Performed By: #### Casey LUGO, 21760-6, CMP, 02435-9, 62911-8 #### [facility] ([id number]) [address] [place] [address] 94909 Hematocrit (Bld) [Volume fraction] 48.3 % High 35-47 [facility] Comment on above: Performed By: #### C BCA, 31658-6, CMP, 93996-2, 68723-3 #### [facility] ([id number]) [address] [place] [address] 29420 Hemoglobin (Bld) [Mass/Vol] 16.0 g/dL High 11.7-15.5 [facility] Comment on above: Performed By: #### Casey BCA, 82975-4, CMP, 47880-2, 84816-8 #### [facility] ([id number]) [address] [place] [address] 76848 Lymphocytes (Bld) [#/Vol] 1.9 10*3/uL Normal 1.0-3.5 [facility] Comment on above: Performed By: #### Casey BCA, 65331-8, CMP, 33817-9, 85563-7 #### [facility] ([id number]) [address] [place] [address] 14485 Lymphocytes/100 WBC (Bld) 27.1 % Normal [facility] Comment on above: Performed By: #### Casey BCA, 73302-0, CMP, 00380-4, 61667-8 #### [facility] ([id number]) [address] [place] [address] 56308 MCH (RBC) [Entitic mass] 31.5 pg Normal 27-34 [facility] Comment on above: Performed By: #### Casey BCA, 79953-0, CMP, 35532-7, 26431-5 #### [facility] ([id number]) [address] [place] [address] 22012 MCHC (RBC) [Mass/Vol] 33.1 g/dL Normal 32-36 [facility] Comment on above: Performed By: #### Casey BCA, 13382-4, CMP, 17433-7, 67228-1 #### [facility] ([id number]) [address] [place] [address] 46126 MCV (RBC) [Entitic vol] 95 fL Normal 80-100 [facility] Comment on above: Performed By: #### Casey LUGO, 41528-8, CMP, 63283-0, 94827-7 #### [facility] ([id number]) [address] [place] [address] 27938 Monocytes (Bld) [#/Vol] 0.7 10*3/uL Normal 0-0.9 [facility] Comment on above: Performed By: #### Casey LUGO, 04112-8, CMP, 29989-2, 31895-6 #### [facility] ([id number]) [address] [place] [address] 48275 Monocytes/100 WBC (Bld) 10.0 % Normal [facility] Comment on above: Performed By: #### Casey LUGO, 42207-7, CMP, 33094-2, 94553-6 #### [facility] ([id number]) [address] [place] [address] 77906 Neutrophils/100 WBC (Bld) 59.9 % Normal [facility] Comment on above: Performed By: #### Casey LUGO, 68922-3, CMP, 74872-1, 76724-3 #### [facility] ([id number]) [address] [place] [address] 70033 Platelet mean volume (Bld) [Entitic vol] 9.0 fL Normal 7-12 [facility] Comment on above: Performed By: #### Casey LUGO, 22283-8, CMP, 80124-9, 68892-6 #### [facility] ([id number]) [address] [place] [address] 53627 Platelets (Bld) [#/Vol] 264 10*3/uL Normal 150-450 [facility] Comment on above: Performed By: #### C BCA, 14760-2, CMP, 52350-6, 36933-7 #### [facility] ([id number]) [address] [place], [place] [address] RBC COUNT 5.07 X10E12/L Normal 3.80-5.20 [facility] Comment on above: Performed By: #### C BCA, 64609-7, CMP, 45115-4, 98151-9 #### [facility] ([id number]) [address] [place], [place] [address] WBC (Bld) [#/Vol] 7.1 10*3/uL Normal 4.0-11.0 [facility] Comment on above: Performed By: #### C BCA, 20630-0, CMP, 92955-2, 76712-0 #### [facility] ([id number]) [address] [place] [address] 10700 COMPREHENSIVE METABOLIC PANE Blayne 01-22-2024 Albumin [Mass/Vol] 3.1 g/dL Low 3.2-5.3 [facility] Comment on above: Performed By: #### C BCA, 71822-4, CMP, 25557-7, 26540-3 #### [facility] ([id number]) [address] [place] [address] 30313 ALP [Catalytic activity/Vol] 98 U/L Normal 39-130 [facility] Comment on above: Performed By: #### C BCA, 81576-2, CMP, 33553-8, 33260-2 #### [facility] ([id number]) [address] [place] [address] 48995 ALT [Catalytic activity/Vol] 21 U/L Normal 0-31 [facility] Comment on above: Performed By: #### C BCA, 64006-1, CMP, 30194-6, 58551-3 #### [facility] ([id number]) [address] [place] [address] 09422 Anion gap [Moles/Vol] 7 mmol/L Normal 5-15 [facility] Comment on above: Performed By: #### C BCA, 64624-6, CMP, 60190-5, 79068-6 #### [facility] ([id number]) [address] [place] [address] 94237 AST [Catalytic activity/Vol] 19 U/L Normal 0-41 [facility] Comment on above: Performed By: #### C BCA, 55653-0, CMP, 62860-7, 21370-0 #### [facility] ([id number]) [address] [place] [address] 58646 Bilirubin [Mass/Vol] 0.5 mg/dL Normal 0.3-1.2 [facility] Comment on above: Performed By: #### C BCA, 06737-7, CMP, 04106-7, 19886-3 #### [facility] ([id number]) [address] [place] [address] 05160 Calcium [Mass/Vol] 8.9 mg/dL Normal 8.5-10.5 [facility] Comment on above: Performed By: #### C BCA, 33407-3, CMP, 13968-3, 09723-1 #### [facility] ([id number]) [address] [place] [address] 99858 Chloride [Moles/Vol] 100 mmol/L Normal 98-109 [facility] Comment on above: Performed By: #### C BCA, 44989-9, CMP, 12117-5, 05873-9 #### [facility] ([id number]) [address] [place] [address] 92040 CO2 [Moles/Vol] 31 mmol/L Normal 22-32 [facility] Comment on above: Performed By: #### C BCA, 51756-7, CMP, 21826-0, 66414-9 #### [facility] ([id number]) [address] [place] [address] 18513 Creatinine [Mass/Vol] 0.51 mg/dL Normal 0.40-1.00 [facility] Comment on above: Result Comment: METH OD TRACEABLE TO IDMS STANDARD Performed By: #### C BCA, 24387-4, CMP, 39597-0, 14477-9 #### [facility] ([id number]) [address] [place] [address] 74219 eGFR (CKD-EPI) NON-RACE DEPENDENT >90 Normal >59 [facility] Comment on above: Result Comment: Reported eGFR is based on the CKD-EPI 2020 equation that does not use a race coefficient. Performed By: #### C BCA, 02366-9, CMP, , 02926-1 #### [facility] ([id number]) [address] [place] [address] 80766 Glucose [Mass/Vol] 153 mg/dL High 65-99 [facility] Comment on above: Performed By: #### C BCA, 67234-0, CMP, , 48541-6 #### [facility] ([id number]) [address] [place] [address] 04592 Potassium [Moles/Vol] 4.0 mmol/L Normal 3.5-5.0 [facility] Comment on above: Performed By: #### C BCA, 98817-1, CMP, 41082-8, 97384-5 #### [facility] ([id number]) [address] [place] [address] 99459 Protein [Mass/Vol] 6.5 g/dL Normal 6.0-8.0 [facility] Comment on above: Performed By: #### C BCA, 05516-8, CMP, 18853-2, 51529-1 #### [facility] ([id number]) [address] [place] [address] 31155 Sodium [Moles/Vol] 138 mmol/L Normal 134-146 [facility] Comment on above: Performed By: #### C BCA, 07504-3, CMP, 94873-4, 71728-6 #### [facility] ([id number]) [address] [place] [address] 75190 Urea nitrogen [Mass/Vol] 20 mg/dL Normal 5-27 [facility] Comment on above: Performed By: #### C BCA, 31049-4, CMP, , 23123-1 #### [facility] ([id number]) [address] [place] [address] 00427 MAGNESIUMon 01-22-2024 Magnesium [Mass/Vol] 2.2 mg/dL Normal 1.8-2.6 [facility] Comment on above: Performed By: #### C BCA, 95811-7, CMP, , 18603-5 #### [facility] ([id number]) [address] [place] [address] 83792 CBC AND AUTO DIFFon 01-21-20 ABSOLUTE BASOPHIL 0.0 X10E9/L Normal 0.0-0.2 [facility] Comment on above: Performed By: #### C BCA, 48382-8, CMP, 98345-8, 43450-2 #### [facility] ([id number]) [address] [place] [address] 04793 ABSOLUTE NEUTROPHIL 4.5 X10E9/L Normal 1.5-6.6 [facility] Comment on above: Performed By: #### C BCA, 14764-0, CMP, 11936-1, 36278-6 #### [facility] ([id number]) [address] [place] [address] 04497 Basophils/100 WBC (Bld) 0.3 % Normal [facility] Comment on above: Performed By: #### Casey LUGO, 67706-1, CMP, 14394-8, 36541-0 #### [facility] ([id number]) [address] [place] [address] 98897 Eosinophils (Bld) [#/Vol] 0.2 10*3/uL Normal 0.0-0.4 [facility] Comment on above: Performed By: #### Casey LUGO, 57361-4, CMP, 54268-7, 37659-8 #### [facility] ([id number]) [address] [place] [address] 33183 Eosinophils/100 WBC (Bld) 2.4 % Normal [facility] Comment on above: Performed By: #### Casey LUGO, 89411-0, CMP, , 03453-1 #### [facility] ([id number]) [address] [place] [address] 90084 Erythrocyte distribution width (RBC) [Ratio] 13.6 % Normal 11.5-15.0 [facility] Comment on above: Performed By: #### Casey LUGO, 51360-3, CMP, 58708-5, 06008-0 #### [facility] ([id number]) [address] [place] [address] 60983 Hematocrit (Bld) [Volume fraction] 48.3 % High 35-47 [facility] Comment on above: Performed By: #### Casey LUGO, 23679-3, CMP, 22833-0, 25254-6 #### [facility] ([id number]) [address] [place] [address] 55359 Hemoglobin (Bld) [Mass/Vol] 16.1 g/dL High 11.7-15.5 [facility] Comment on above: Performed By: #### C BCA, 00390-0, CMP, 47638-0, 94578-7 #### [facility] ([id number]) [address] [place] [address] 06737 Lymphocytes (Bld) [#/Vol] 1.8 10*3/uL Normal 1.0-3.5 [facility] Comment on above: Performed By: #### Casey LUGO, 81553-9, CMP, 60112-7, 09299-8 #### [facility] ([id number]) [address] [place] [address] 94349 Lymphocytes/100 WBC (Bld) 24.9 % Normal [facility] Comment on above: Performed By: #### Casey LUGO, 03818-9, CMP, 77952-0, 77337-0 #### [facility] ([id number]) [address] [place] [address] 17161 MCH (RBC) [Entitic mass] 31.7 pg Normal 27-34 [facility] Comment on above: Performed By: #### Casey LUGO, 85988-6, CMP, 60177-7, 50252-8 #### [facility] ([id number]) [address] [place] [address] 97834 MCHC (RBC) [Mass/Vol] 33.4 g/dL Normal 32-36 [facility] Comment on above: Performed By: #### Casey BCA, 12466-0, CMP, 86747-9, 60783-2 #### [facility] ([id number]) [address] [place] [address] 85051 MCV (RBC) [Entitic vol] 95 fL Normal 80-100 [facility] Comment on above: Performed By: #### Casey LUGO, 95548-4, CMP, 70597-2, 57186-7 #### [facility] ([id number]) [address] [place] [address] 13760 Monocytes (Bld) [#/Vol] 0.9 10*3/uL Normal 0-0.9 [facility] Comment on above: Performed By: #### Casey LUGO, 27535-9, CMP, 61642-9, 98705-3 #### [facility] ([id number]) [address] [place] [address] 89612 Monocytes/100 WBC (Bld) 12.0 % Normal [facility] Comment on above: Performed By: #### Casey LUGO, 64332-2, CMP, 29827-0, 00922-4 #### [facility] ([id number]) [address] [place] [address] 69860 Neutrophils/100 WBC (Bld) 60.4 % Normal [facility] Comment on above: Performed By: #### Casey LUGO, 29344-3, CMP, 81554-8, 23192-3 #### [facility] ([id number]) [address] [place] [address] 19789 Platelet mean volume (Bld) [Entitic vol] 9.6 fL Normal 7-12 [facility] Comment on above: Performed By: #### Casey LUGO, 67684-6, CMP, 33084-1, 97818-9 #### [facility] ([id number]) [address] [place] [address] 39705 Platelets (Bld) [#/Vol] 230 10*3/uL Normal 150-450 [facility] Comment on above: Performed By: #### Casey LUGO, 74041-3, CMP, 06570-5, 20251-4 #### [facility] ([id number]) [address] [place] [address] 07452 RBC COUNT 5.09 X10E12/L Normal 3.80-5.20 [facility] Comment on above: Performed By: #### Casey LUGO, 79871-1, CMP, 95740-3, 09566-4 #### [facility] ([id number]) [address] [place] [address] 43652 WBC (Bld) [#/Vol] 7.4 10*3/uL Normal 4.0-11.0 [facility] Comment on above: Performed By: #### C BCA, 80850-9, CMP, 71227-8, 82747-8 #### [facility] ([id number]) [address] [place] [address] 76792 COMPREHENSIVE METABOLIC PANE Blayne 01-21-2024 Albumin [Mass/Vol] 3.1 g/dL Low 3.2-5.3 [facility] Comment on above: Performed By: #### C BCA, 92968-6, CMP, 06583-8, 81793-8 #### [facility] ([id number]) [address] [place] [address] 62588 ALP [Catalytic activity/Vol] 96 U/L Normal 39-130 [facility] Comment on above: Performed By: #### C BCA, 44419-9, CMP, 18093-2, 50226-0 #### [facility] ([id number]) [address] [place] [address] 86949 ALT [Catalytic activity/Vol] 18 U/L Normal 0-31 [facility] Comment on above: Performed By: #### C BCA, 12050-7, CMP, 27370-3, 25723-9 #### [facility] ([id number]) [address] [place] [address] 93516 Anion gap [Moles/Vol] 7 mmol/L Normal 5-15 [facility] Comment on above: Performed By: #### C BCA, 38374-3, CMP, 34220-0, 32947-5 #### [facility] ([id number]) [address] [place] [address] 52599 AST [Catalytic activity/Vol] 16 U/L Normal 0-41 [facility] Comment on above: Performed By: #### C BCA, 97393-6, CMP, 10270-7, 81564-9 #### [facility] ([id number]) [address] [place] [address] 10764 Bilirubin [Mass/Vol] 0.5 mg/dL Normal 0.3-1.2 [facility] Comment on above: Performed By: #### C BCA, 07516-4, CMP, 00478-9, 45671-5 #### [facility] ([id number]) [address] [place] [address] 51384 Calcium [Mass/Vol] 9.1 mg/dL Normal 8.5-10.5 [facility] Comment on above: Performed By: #### Casey BCA, 50696-2, CMP, 38186-2, 55840-7 #### [facility] ([id number]) [address] [place] [address] 36825 Chloride [Moles/Vol] 98 mmol/L Normal 98-109 [facility] Comment on above: Performed By: #### Casey BCA, 69659-3, CMP, 74739-6, 75441-6 #### [facility] ([id number]) [address] [place] [address] 50335 CO2 [Moles/Vol] 33 mmol/L High 22-32 [facility] Comment on above: Performed By: #### C BCA, 92052-2, CMP, 45716-8, 29558-6 #### [facility] ([id number]) [address] [place] [address] 30105 Creatinine [Mass/Vol] 0.45 mg/dL Normal 0.40-1.00 [facility] Comment on above: Result Comment: METH OD TRACEABLE TO IDMS STANDARD Performed By: #### C BCA, 76451-0, CMP, 73642-6, 71734-9 #### [facility] ([id number]) [address] [place] [address] 89922 eGFR (CKD-EPI) NON-RACE DEPENDENT >90 Normal >59 [facility] Comment on above: Result Comment: Reported eGFR is based on the CKD-EPI 2020 equation that does not use a race coefficient. Performed By: #### C BCA, 48701-3, CMP, 54609-2, 29388-8 #### [facility] ([id number]) [address] [place] [address] 72682 Glucose [Mass/Vol] 138 mg/dL High 65-99 [facility] Comment on above: Performed By: #### C BCA, 82201-8, CMP, 15847-7, 82407-9 #### [facility] ([id number]) [address] [place] [address] 68297 Potassium [Moles/Vol] 3.8 mmol/L Normal 3.5-5.0 [facility] Comment on above: Performed By: #### C BCA, 88147-9, CMP, 61633-8, 88215-3 #### [facility] ([id number]) [address] [place] [address] 91455 Protein [Mass/Vol] 6.6 g/dL Normal 6.0-8.0 [facility] Comment on above: Performed By: #### C BCA, 51655-2, CMP, 04219-9, 17991-4 #### [facility] ([id number]) [address] [place] [address] 43182 Sodium [Moles/Vol] 138 mmol/L Normal 134-146 [facility] Comment on above: Performed By: #### C BCA, 63240-7, CMP, 97133-8, 93966-4 #### [facility] ([id number]) [address] [place] [address] 96809 Urea nitrogen [Mass/Vol] 18 mg/dL Normal 5-27 [facility] Comment on above: Performed By: #### C BRITTNEY, 73731-1, CMP, 57593-3, 13921-9 #### [facility] ([id number]) [address] [place] [address] 43100 Glucose Glucometer (BldC) [M ass/Vol]on 01-21-2024 Glucose [Mass/Vol] 312 mg/dL High 65-99 [facility] Glucose [Mass/Vol] 285 mg/dL High 65-99 [facility] Glucose [Mass/Vol] 178 mg/dL High 65-99 [facility] MAGNESIUMon 01-21-2024 Magnesium [Mass/Vol] 2.2 mg/dL Normal 1.8-2.6 [facility] Comment on above: Performed By: #### C BRITTNEY, 57799-8, CMP, , 17957-1 #### [facility] ([id number]) [address] [place] [address] 38945 POTASSIUMon 01-21-2024 Potassium [Moles/Vol] 4.4 mmol/L Normal 3.5-5.0 [facility] Comment on above: Performed By: #### C BRITTNEY, 28801-9, CMP, 15885-0, 92358-2 #### [facility] ([id number]) [address] [place] [address] 64913 CBC AND AUTO DIFFon 01-20-20 24 ABSOLUTE BASOPHIL 0.0 X10E9/L Normal 0.0-0.2 [facility] Comment on above: Performed By: #### C BRITTNEY, 44112-5, CMP, 27892-8, 28434-8 #### [facility] ([id number]) [address] [place] [address] 50586 ABSOLUTE NEUTROPHIL 6.3 X10E9/L Normal 1.5-6.6 [facility] Comment on above: Performed By: #### Casey LUGO, 08558-5, CMP, 68023-2, 49769-5 #### [facility] ([id number]) [address] [place] [address] 44108 Basophils/100 WBC (Bld) 0.5 % Normal [facility] Comment on above: Performed By: #### Casey LUGO, 20147-4, CMP, , 34778-4 #### [facility] ([id number]) [address] [place] [address] 77553 Eosinophils (Bld) [#/Vol] 0.1 10*3/uL Normal 0.0-0.4 [facility] Comment on above: Performed By: #### Casey LUGO, 51718-3, CMP, , 05497-8 #### [facility] ([id number]) [address] [place] [address] 15144 Eosinophils/100 WBC (Bld) 1.3 % Normal [facility] Comment on above: Performed By: #### Casey LUGO, 42374-7, CMP, 19279-6, 27412-2 #### [facility] ([id number]) [address] [place] [address] 97323 Erythrocyte distribution width (RBC) [Ratio] 13.6 % Normal 11.5-15.0 [facility] Comment on above: Performed By: #### Casey LUGO, 93892-5, CMP, , 87374-5 #### [facility] ([id number]) [address] [place] [address] 83003 Hematocrit (Bld) [Volume fraction] 47.5 % High 35-47 [facility] Comment on above: Performed By: #### Casey LUGO, 58560-2, CMP, 94698-3, 25269-4 #### [facility] ([id number]) [address] [place] [address] 14511 Hemoglobin (Bld) [Mass/Vol] 16.1 g/dL High 11.7-15.5 [facility] Comment on above: Performed By: #### Casey LUGO, 92828-7, CMP, 12649-1, 21987-9 #### [facility] ([id number]) [address] [place] [address] 86450 Lymphocytes (Bld) [#/Vol] 1.8 10*3/uL Normal 1.0-3.5 [facility] Comment on above: Performed By: #### Casey LUGO, 97912-5, CMP, 18576-6, 02650-6 #### [facility] ([id number]) [address] [place] [address] 45949 Lymphocytes/100 WBC (Bld) 19.8 % Normal [facility] Comment on above: Performed By: #### Casey LUGO, 04256-9, CMP, 54415-8, 09033-2 #### [facility] ([id number]) [address] [place] [address] 67038 MCH (RBC) [Entitic mass] 32.2 pg Normal 27-34 [facility] Comment on above: Performed By: #### Casey BCA, 21546-5, CMP, 70202-1, 10548-0 #### [facility] ([id number]) [address] [place] [address] 20285 MCHC (RBC) [Mass/Vol] 33.8 g/dL Normal 32-36 [facility] Comment on above: Performed By: #### Casey LUGO, 45889-8, CMP, 32819-0, 91854-9 #### [facility] ([id number]) [address] [place] [address] 04200 MCV (RBC) [Entitic vol] 95 fL Normal 80-100 [facility] Comment on above: Performed By: #### Casey LUGO, 14455-6, CMP, 04058-0, 24416-8 #### [facility] ([id number]) [address] [place] [address] 36470 Monocytes (Bld) [#/Vol] 0.9 10*3/uL Normal 0-0.9 [facility] Comment on above: Performed By: #### Casey LUGO, 59052-8, CMP, 04629-9, 18501-3 #### [facility] ([id number]) [address] [place] [address] 81709 Monocytes/100 WBC (Bld) 9.3 % Normal [facility] Comment on above: Performed By: #### Casey LUGO, 29064-7, CMP, 16828-8, 63369-9 #### [facility] ([id number]) [address] [place] [address] 77142 Neutrophils/100 WBC (Bld) 69.1 % Normal [facility] Comment on above: Performed By: #### Casey LUGO, 23803-6, CMP, 56760-1, 65894-1 #### [facility] ([id number]) [address] [place] [address] 75492 Platelet mean volume (Bld) [Entitic vol] 9.3 fL Normal 7-12 [facility] Comment on above: Performed By: #### Casey LUGO, 30798-5, CMP, 02960-9, 02479-3 #### [facility] ([id number]) [address] [place] [address] 54906 Platelets (Bld) [#/Vol] 213 10*3/uL Normal 150-450 [facility] Comment on above: Performed By: #### Casey LUGO, 38327-4, CMP, 56870-2, 07076-0 #### [facility] ([id number]) [address] [place] [address] 34138 RBC COUNT 4.99 X10E12/L Normal 3.80-5.20 [facility] Comment on above: Performed By: #### C BCA, 48086-0, CMP, 89955-5, 00141-5 #### [facility] ([id number]) [address] [place] [address] 73337 WBC (Bld) [#/Vol] 9.2 10*3/uL Normal 4.0-11.0 [facility] Comment on above: Performed By: #### C BCA, 17564-1, CMP, 30757-4, 48927-6 #### [facility] ([id number]) [address] [place] [address] 71858 COMPREHENSIVE METABOLIC PANE Blayne 01-20-2024 Albumin [Mass/Vol] 3.1 g/dL Low 3.2-5.3 [facility] Comment on above: Performed By: #### C BCA, 27110-2, CMP, 39603-7, 08536-6 #### [facility] ([id number]) [address] [place] [address] 43476 ALP [Catalytic activity/Vol] 96 U/L Normal 39-130 [facility] Comment on above: Performed By: #### C BCA, 73739-4, CMP, 90345-7, 17286-7 #### [facility] ([id number]) [address] [place] [address] 69464 ALT [Catalytic activity/Vol] 19 U/L Normal 0-31 [facility] Comment on above: Performed By: #### C BCA, 71645-7, CMP, 83197-2, 08791-5 #### [facility] ([id number]) [address] [place] [address], [place] [address] Anion gap [Moles/Vol] 9 mmol/L Normal 5-15 [facility] Comment on above: Performed By: #### C BCA, 30239-0, CMP, 66022-1, 39661-0 #### [facility] ([id number]) [address] [place] [address] 54118 AST [Catalytic activity/Vol] 17 U/L Normal 0-41 [facility] Comment on above: Performed By: #### C BCA, 36253-0, CMP, 70335-3, 99410-3 #### [facility] ([id number]) [address] [place] [address] 75391 Bilirubin [Mass/Vol] 0.5 mg/dL Normal 0.3-1.2 [facility] Comment on above: Performed By: #### Casey BCA, 86072-2, CMP, , 85926-3 #### [facility] ([id number]) [address] [place] [address] 65124 Calcium [Mass/Vol] 8.8 mg/dL Normal 8.5-10.5 [facility] Comment on above: Performed By: #### Casey BCA, 08350-7, CMP, 22040-0, 74133-6 #### [facility] ([id number]) [address] [place] [address] 05520 Chloride [Moles/Vol] 98 mmol/L Normal 98-109 [facility] Comment on above: Performed By: #### C BCA, 27560-6, CMP, 53360-5, 07888-8 #### [facility] ([id number]) [address] [place] [address] 09310 CO2 [Moles/Vol] 30 mmol/L Normal 22-32 [facility] Comment on above: Performed By: #### C BCA, 17109-7, CMP, 77412-6, 81150-6 #### [facility] ([id number]) [address] [place] [address] 93679 Creatinine [Mass/Vol] 0.50 mg/dL Normal 0.40-1.00 [facility] Comment on above: Result Comment: METH OD TRACEABLE TO IDMS STANDARD Performed By: #### C BCA, 93170-0, CMP, 81457-1, 62352-9 #### [facility] ([id number]) [address] [place] [address] 16704 eGFR (CKD-EPI) NON-RACE DEPENDENT >90 Normal >59 [facility] Comment on above: Result Comment: Reported eGFR is based on the CKD-EPI 2020 equation that does not use a race coefficient. Performed By: #### C BCA, 92528-7, CMP, 58641-1, 65183-8 #### [facility] ([id number]) [address] [place] [address] 80165 Glucose [Mass/Vol] 282 mg/dL High 65-99 [facility] Comment on above: Performed By: #### C BCA, 88180-9, CMP, , 48741-0 #### [facility] ([id number]) [address] [place] [address] 49149 Potassium [Moles/Vol] 4.2 mmol/L Normal 3.5-5.0 [facility] Comment on above: Performed By: #### C BCA, 87888-3, CMP, 82851-7, 63116-7 #### [facility] ([id number]) [address] [place] [address] 51963 Protein [Mass/Vol] 6.2 g/dL Normal 6.0-8.0 [facility] Comment on above: Performed By: #### C BCA, 83634-1, CMP, 61723-6, 35048-0 #### [facility] ([id number]) [address] [place] [address] 60408 Sodium [Moles/Vol] 137 mmol/L Normal 134-146 [facility] Comment on above: Performed By: #### Casey LUGO, 93824-8, CMP, 55739-9, 99554-8 #### [facility] ([id number]) [address] [place] [address] 41233 Urea nitrogen [Mass/Vol] 18 mg/dL Normal 5-27 [facility] Comment on above: Performed By: #### Casey LUGO, 01296-2, CMP, 32886-7, 30646-6 #### [facility] ([id number]) [address] [place] [address] 75354 Glucose Glucometer (BldC) [M ass/Vol]on 01-20-2024 Glucose [Mass/Vol] 277 mg/dL High 65-99 [facility] Glucose [Mass/Vol] 174 mg/dL High 65-99 [facility] Glucose [Mass/Vol] 324 mg/dL High 65-99 [facility] Glucose [Mass/Vol] 172 mg/dL High 65-99 [facility] MAGNESIUMon 01-20-2024 Magnesium [Mass/Vol] 2.0 mg/dL Normal 1.8-2.6 [facility] Comment on above: Performed By: #### Casey LUGO, 50674-7, CMP, 71579-4, 24596-7 #### [facility] ([id number]) [address] [place] [address] 20672 CBC AND AUTO DIFFon 01-19-20 24 ABSOLUTE BASOPHIL 0.0 X10E9/L Normal 0.0-0.2 [facility] Comment on above: Performed By: #### Casey LUGO, 95622-9, CMP, 49157-9, 04619-9 #### [facility] ([id number]) [address] [place] [address] 76573 ABSOLUTE NEUTROPHIL 7.7 X10E9/L High 1.5-6.6 [facility] Comment on above: Performed By: #### Casey LUGO, 17371-7, CMP, , 27743-8 #### [facility] ([id number]) [address] [place] [address] 89365 Basophils/100 WBC (Bld) 0.4 % Normal [facility] Comment on above: Performed By: #### Casey LUGO, 61926-6, CMP, , 53856-4 #### [facility] ([id number]) [address] [place] [address] 94589 Eosinophils (Bld) [#/Vol] 0.2 10*3/uL Normal 0.0-0.4 [facility] Comment on above: Performed By: #### Casey LUGO, 21165-0, CMP, , 27140-1 #### [facility] ([id number]) [address] [place] [address] 07217 Eosinophils/100 WBC (Bld) 1.7 % Normal [facility] Comment on above: Performed By: #### Casey LUGO, 14695-2, CMP, , 98063-1 #### [facility] ([id number]) [address] [place] [address] 07737 Erythrocyte distribution width (RBC) [Ratio] 13.7 % Normal 11.5-15.0 [facility] Comment on above: Performed By: #### Casey LUGO, 80418-4, CMP, , 29069-8 #### [facility] ([id number]) [address] [place] [address] 98918 Hematocrit (Bld) [Volume fraction] 48.3 % High 35-47 [facility] Comment on above: Performed By: #### Casey LUGO, 59945-5, CMP, 15216-8, 16797-6 #### [facility] ([id number]) [address] [place] [address] 83260 Hemoglobin (Bld) [Mass/Vol] 15.9 g/dL High 11.7-15.5 [facility] Comment on above: Performed By: #### Casey LUGO, 55579-1, CMP, 67392-9, 27837-8 #### [facility] ([id number]) [address] [place] [address] 20590 Lymphocytes (Bld) [#/Vol] 2.2 10*3/uL Normal 1.0-3.5 [facility] Comment on above: Performed By: #### Casey LUGO, 67981-5, CMP, 46186-2, 19627-8 #### [facility] ([id number]) [address] [place] [address] 72043 Lymphocytes/100 WBC (Bld) 20.2 % Normal [facility] Comment on above: Performed By: #### Casey LUGO, 66950-8, CMP, 43048-1, 78435-2 #### [facility] ([id number]) [address] [place] [address] 09368 MCH (RBC) [Entitic mass] 31.1 pg Normal 27-34 [facility] Comment on above: Performed By: #### Casey BCA, 05073-3, CMP, 07025-7, 26974-1 #### [facility] ([id number]) [address] [place] [address] 86661 MCHC (RBC) [Mass/Vol] 32.9 g/dL Normal 32-36 [facility] Comment on above: Performed By: #### Casey LUGO, 17944-3, CMP, 60431-6, 89001-5 #### [facility] ([id number]) [address] [place] [address] 27223 MCV (RBC) [Entitic vol] 95 fL Normal 80-100 [facility] Comment on above: Performed By: #### Casey LUGO, 39174-6, CMP, 09962-7, 69981-8 #### [facility] ([id number]) [address] [place] [address] 44136 Monocytes (Bld) [#/Vol] 0.9 10*3/uL Normal 0-0.9 [facility] Comment on above: Performed By: #### Casey LUGO, 82502-7, CMP, 05708-0, 22992-4 #### [facility] ([id number]) [address] [place] [address] 51470 Monocytes/100 WBC (Bld) 8.1 % Normal [facility] Comment on above: Performed By: #### Casey LUGO, 00225-8, CMP, 41586-7, 39594-3 #### [facility] ([id number]) [address] [place] [address] 42700 Neutrophils/100 WBC (Bld) 69.6 % Normal [facility] Comment on above: Performed By: #### Casey LUGO, 24025-9, CMP, 28277-8, 38064-6 #### [facility] ([id number]) [address] [place] [address] 18594 Platelet mean volume (Bld) [Entitic vol] 9.9 fL Normal 7-12 [facility] Comment on above: Performed By: #### Casey LUGO, 84917-3, CMP, 44270-0, 15356-8 #### [facility] ([id number]) [address] [place] [address] 93127 Platelets (Bld) [#/Vol] 219 10*3/uL Normal 150-450 [facility] Comment on above: Performed By: #### Casey LUGO, 87568-8, CMP, 71320-6, 15241-5 #### [facility] ([id number]) [address] [place] [address] 01542 RBC COUNT 5.11 X10E12/L Normal 3.80-5.20 [facility] Comment on above: Performed By: #### C BCA, 61771-0, CMP, 85830-3, 15424-8 #### [facility] ([id number]) [address] [place] [address] 93514 WBC (Bld) [#/Vol] 11.0 10*3/uL Normal 4.0-11.0 [facility] Comment on above: Performed By: #### C BCA, 62270-4, CMP, 80948-5, 64865-8 #### [facility] ([id number]) [address] [place] [address] 98491 COMPREHENSIVE METABOLIC PANE Blayne 01-19-2024 Albumin [Mass/Vol] 2.9 g/dL Low 3.2-5.3 [facility] Comment on above: Performed By: #### C BCA, 08318-0, CMP, 09226-3, 99060-5 #### [facility] ([id number]) [address] [place] [address] 39343 ALP [Catalytic activity/Vol] 112 U/L Normal 39-130 [facility] Comment on above: Performed By: #### C BCA, 28749-4, CMP, 48984-9, 06257-7 #### [facility] ([id number]) [address] [place] [address] 26265 ALT [Catalytic activity/Vol] 21 U/L Normal 0-31 [facility] Comment on above: Performed By: #### C BCA, 51555-3, CMP, 69670-0, 04839-2 #### [facility] ([id number]) [address] [place] [address] 02697 Anion gap [Moles/Vol] 9 mmol/L Normal 5-15 [facility] Comment on above: Performed By: #### C BCA, 66414-8, CMP, 18902-5, 15623-4 #### [facility] ([id number]) [address] [place] [address] 73758 AST [Catalytic activity/Vol] 16 U/L Normal 0-41 [facility] Comment on above: Performed By: #### Casey BCA, 54924-7, CMP, 93890-6, 47952-8 #### [facility] ([id number]) [address] [place] [address] 53773 Bilirubin [Mass/Vol] 0.5 mg/dL Normal 0.3-1.2 [facility] Comment on above: Performed By: #### Casey BCA, 45131-3, CMP, 53031-8, 69705-7 #### [facility] ([id number]) [address] [place] [address] 55372 Calcium [Mass/Vol] 8.9 mg/dL Normal 8.5-10.5 [facility] Comment on above: Performed By: #### Casey BCA, 59985-8, CMP, 06287-6, 67179-6 #### [facility] ([id number]) [address] [place] [address] [place] [address] Chloride [Moles/Vol] 98 mmol/L Normal 98-109 [facility] Comment on above: Performed By: #### C BCA, 06500-5, CMP, 90450-9, 92294-6 #### [facility] ([id number]) [address] [place] [address] 45677 CO2 [Moles/Vol] 29 mmol/L Normal 22-32 [facility] Comment on above: Performed By: #### C BCA, 36520-7, CMP, , 05016-4 #### [facility] ([id number]) [address] [place] [address] 42694 Creatinine [Mass/Vol] 0.46 mg/dL Normal 0.40-1.00 [facility] Comment on above: Result Comment: METH OD TRACEABLE TO IDMS STANDARD Performed By: #### C BCA, 46956-9, CMP, 28188-7, 77516-1 #### [facility] ([id number]) [address] [place] [address] 44781 eGFR (CKD-EPI) NON-RACE DEPENDENT >90 Normal >59 [facility] Comment on above: Result Comment: Reported eGFR is based on the CKD-EPI 2020 equation that does not use a race coefficient. Performed By: #### C BCA, 71312-3, CMP, , 11812-7 #### [facility] ([id number]) [address] [place] [address] 65442 Glucose [Mass/Vol] 168 mg/dL High 65-99 [facility] Comment on above: Performed By: #### C BCA, 63436-5, CMP, , 33682-2 #### [facility] ([id number]) [address] [place] [address] 82524 Potassium [Moles/Vol] 3.7 mmol/L Normal 3.5-5.0 [facility] Comment on above: Performed By: #### C BCA, 04743-6, CMP, 30072-7, 16511-3 #### [facility] ([id number]) [address] [place] [address] 48923 Protein [Mass/Vol] 6.2 g/dL Normal 6.0-8.0 [facility] Comment on above: Performed By: #### C BCA, 53520-2, CMP, 26759-4, 22015-4 #### [facility] ([id number]) [address] [place] [address] 10928 Sodium [Moles/Vol] 136 mmol/L Normal 134-146 [facility] Comment on above: Performed By: #### C BRITTNEY, 64114-9, CMP, 96333-0, 19436-4 #### [facility] ([id number]) [address] [place] [address] 32767 Urea nitrogen [Mass/Vol] 19 mg/dL Normal 5-27 [facility] Comment on above: Performed By: #### C BRITTNEY, 61213-7, [facility], , 39515-0 #### [facility] ([id number]) [address] [place] [address] 95254 Glucose Glucometer (BldC) [M ass/Vol]on 01-19-2024 Glucose [Mass/Vol] 241 mg/dL High 65-99 [facility] Glucose [Mass/Vol] 203 mg/dL High 65-99 [facility] Glucose [Mass/Vol] 237 mg/dL High 65-99 [facility] MAGNESIUMon 01-19-2024 Magnesium [Mass/Vol] 2.0 mg/dL Normal 1.8-2.6 [facility] Comment on above: Performed By: #### C BRITTNEY, 40877-7, CMP, , 75188-4 #### [facility] ([id number]) [address] [place] [address] 46768 POTASSIUMon 01-19-2024 Potassium [Moles/Vol] 4.4 mmol/L Normal 3.5-5.0 [facility] Comment on above: Performed By: #### C BRITTNEY, 46437-4, CMP, , 32522-0 #### [facility] [facility] [place] ([id number]) [address] [place] [address] 91031 URINALYSISon 08-18-2024 Bilirubin Ql (U) Negative Normal NEG [facility] Comment on above: Performed By: #### C BRITTNEY, 02304-5, CMP, 70400-9, 45080-9 #### [facility] [place] ([id number]) [address] [place] [address] 78776 BLOOD/HGB SMALL Abnormal NEG [facility] Comment on above: Performed By: #### Casey LUGO, 31408-0, CMP, 87479-8, 89663-6 #### [facility] [place] ([id number]) [address] [place] [address] 57393 Color (U) YELLOW Normal YELLOW [facility] Comment on above: Performed By: #### Casey LUGO, 04636-7, CMP, 26167-6, 10105-1 #### [facility] [place] ([id number]) [address] [place] [address] 57808 Glucose Ql (U) >1000 Abnormal NEG [facility] Comment on above: Performed By: #### Casey LUGO, 00052-7, CMP, 85670-1, 80964-3 #### [facility] [place] ([id number]) [address] [place] [address] 75450 Ketones Ql (U) Negative Normal [facility] Comment on above: Performed By: #### Casey LUGO, 03265-1, CMP, 16869-8, 77704-2 #### [facility] [place] ([id number]) [address] [place] [address] 18754 Leukocyte esterase Test strip Ql (U) MODERATE Abnormal NEG [facility] Comment on above: Result Comment: HIGH CONCENTRATIONS OF GLUCOSE MAY DECREASE THE REACTIVITY OF THE DIPSTICK LEUKOCYTE TEST PAD. Performed By: #### Casey BCA, 11422-8, CMP, 47098-5, 91968-7 #### [facility] [place] ([id number]) [address] [place] [address] 04941 Nitrite Ql (U) Negative Normal NEG [facility] Comment on above: Performed By: #### C BCA, 57512-3, CMP, 17238-2, 11929-0 #### [facility] [place] ([id number]) [address] [place] [address] 78669 pH (U) 6.5 [pH] Normal 5.0-8.5 [facility] Comment on above: Performed By: #### Casey BCA, 86233-6, CMP, 07539-0, 07004-0 #### [facility] [place] ([id number]) [address] [place] [address] 25661 Protein Ql (U) Negative Normal NEG [facility] Comment on above: Performed By: #### Casey LUGO, 53391-2, CMP, 04252-1, 08882-9 #### [facility] [place] ([id number]) [address] [place] [address] 15340 R.B.CELLS 10 /hpf High 0-5 [facility] Comment on above: Performed By: #### Casey BCA, 25746-5, CMP, 73241-0, 25840-7 #### [facility] [place] ([id number]) [address] [place] [address] 02944 Specific gravity (U) [Rel density] 1.010 Normal 1.003-1.035 [facility] Comment on above: Performed By: #### C BCA, 72079-2, CMP, 23294-9, 49476-4 #### [facility] [place] ([id number]) [address] [place] [address] 98504 SQUAMOUS EPITHELIUM 4 /hpf Normal 0-5 [facility] Comment on above: Performed By: #### Casey BCA, 85946-5, CMP, 20217-3, 89424-4 #### [facility] [place] ([id number]) [address] [place] [address] 76987 TRANSITIONAL EPITH 1 /hpf High 0 [facility] Comment on above: Performed By: #### C BRITTNEY, 41698-5, CMP, 27565-3, 40826-3 #### [facility] [place] ([id number]) [address] [place] [address] 80278 TURBIDITY CLOUDY Abnormal CLEAR [facility] Comment on above: Performed By: #### Casey LUGO, 56510-5, CMP, 24876-3, 42977-5 #### [facility] [place] ([id number]) [address] [place] [address] 36059 Urobilinogen Qn (U) 0.2 {Beau'U}/dL Normal <1.1 [facility] Comment on above: Performed By: #### Casey LUGO, 66055-3, CMP, 71299-2, 61734-7 #### [facility] [place] ([id number]) [address] [place] [address] 48203 W.B.CELLS >100 High 0-5 [facility] Comment on above: Performed By: #### Casey LUGO, 16951-7, CMP, , 76316-9 #### [facility] [place] ([id number]) [address] [place] [address] 11947 URINE CULTUREon 01-19-2024 Bacteria identified Cx Nom (U) CULTURE RESULTS 50-100,000 ORGANISMS/ML NORMAL UROGENITAL AMILCAR Normal [facility] Comment on above: Performed By: #### Casey LUGO, 81970-1, CMP, 57348-3, 41784-1 #### [facility] [place] ([id number]) [address] [place] [address] 31310 CBC AND AUTO DIFFon 01-18-20 24 ABSOLUTE BASOPHIL 0.0 X10E9/L Normal 0.0-0.2 [facility] Comment on above: Performed By: #### Casey LUGO, 79251-9, CMP, 37500-7, 73170-6 #### [facility] [place] ([id number]) [address] [place] [address] 94444 ABSOLUTE NEUTROPHIL 8.3 X10E9/L High 1.5-6.6 [facility] Comment on above: Performed By: #### Casey LUGO, 83231-8, CMP, 25732-0, 41989-7 #### [facility] [place] ([id number]) [address] [place] [address] 00776 Basophils/100 WBC (Bld) 0.3 % Normal [facility] Comment on above: Performed By: #### Casey LUGO, 36848-9, CMP, 32800-4, 60014-8 #### [facility] [place] ([id number]) [address] [place] [address] 12901 Eosinophils (Bld) [#/Vol] 0.3 10*3/uL Normal 0.0-0.4 [facility] Comment on above: Performed By: #### Casey LUGO, 06879-5, CMP, , 44815-2 #### [facility] [place] ([id number]) [address] [place] [address] 24860 Eosinophils/100 WBC (Bld) 2.1 % Normal [facility] Comment on above: Performed By: #### Casey LUGO, 47630-9, CMP, , 14637-2 #### [facility] [place] ([id number]) [address] [place] [address] 58718 Erythrocyte distribution width (RBC) [Ratio] 13.6 % Normal 11.5-15.0 [facility] Comment on above: Performed By: #### Casey LUGO, 29239-4, CMP, 29854-6, 83957-8 #### [facility] [place] ([id number]) [address] [place] [address] 47999 Hematocrit (Bld) [Volume fraction] 54.5 % High 35-47 [facility] Comment on above: Performed By: #### Casey LUGO, 55560-9, CMP, 26138-3, 98277-8 #### [facility] [place] ([id number]) [address] [place] [address] 88150 Hemoglobin (Bld) [Mass/Vol] 18.1 g/dL High 11.7-15.5 [facility] Comment on above: Performed By: #### Casey LUGO, 29315-5, CMP, 74864-7, 56881-7 #### [facility] [place] ([id number]) [address] [place] [address] 00807 Lymphocytes (Bld) [#/Vol] 2.4 10*3/uL Normal 1.0-3.5 [facility] Comment on above: Performed By: #### Casey LUGO, 14876-7, CMP, 84324-9, 04072-3 #### [facility] [place] ([id number]) [address] [place] [address] 63948 Lymphocytes/100 WBC (Bld) 20.1 % Normal [facility] Comment on above: Performed By: #### Casey LUGO, 77467-1, CMP, 02912-4, 52945-6 #### [facility] [place] ([id number]) [address] [place] [address] 42508 MCH (RBC) [Entitic mass] 31.3 pg Normal 27-34 [facility] Comment on above: Performed By: #### Casey LUGO, 38967-4, CMP, 83739-6, 78303-5 #### [facility] [place] ([id number]) [address] [place] [address] 54574 MCHC (RBC) [Mass/Vol] 33.2 g/dL Normal 32-36 [facility] Comment on above: Performed By: #### Casey LUGO, 30911-8, CMP, 63089-2, 35773-4 #### [facility] [place] ([id number]) [address] [place] [address] 95951 MCV (RBC) [Entitic vol] 94 fL Normal 80-100 [facility] Comment on above: Performed By: #### Casey LUGO, 68616-8, CMP, 41819-8, 08437-6 #### [facility] [place] ([id number]) [address] [place] [address] 73366 Monocytes (Bld) [#/Vol] 0.8 10*3/uL Normal 0-0.9 [facility] Comment on above: Performed By: #### Casey LUGO, 12717-3, CMP, 58291-9, 00577-4 #### [facility] [place] ([id number]) [address] [place] [address] 28123 Monocytes/100 WBC (Bld) 7.1 % Normal [facility] Comment on above: Performed By: #### Casey LUGO, 50372-7, CMP, 79941-0, 75111-8 #### [facility] [place] ([id number]) [address] [place] [address] 17611 Neutrophils/100 WBC (Bld) 70.4 % Normal [facility] Comment on above: Performed By: #### Casey LUGO, 08691-6, CMP, 51220-7, 14655-9 #### [facility] [place] ([id number]) [address] [place] [address] 31655 Platelet mean volume (Bld) [Entitic vol] 10.1 fL Normal 7-12 [facility] Comment on above: Performed By: #### Casey LUGO, 88586-4, CMP, 66193-5, 66905-7 #### [facility] [place] ([id number]) [address] [place] [address] 42730 Platelets (Bld) [#/Vol] 279 10*3/uL Normal 150-450 [facility] Comment on above: Performed By: #### C BRITTNEY, 42720-0, CMP, 68635-7, 86888-9 #### [facility] [place] ([id number]) [address] [place] [address] 81990 RBC COUNT 5.78 X10E12/L High 3.80-5.20 [facility] Comment on above: Performed By: #### Casey LUGO, 61991-2, CMP, 28192-9, 61193-5 #### [facility] [place] ([id number]) [address] [place] [address] 87981 WBC (Bld) [#/Vol] 11.8 10*3/uL High 4.0-11.0 [facility] Comment on above: Performed By: #### Casey LUGO, 59254-2, CMP, 08968-1, 15813-2 #### [facility] [place] ([id number]) [address] [place] [address] 75033 COMPREHENSIVE METABOLIC PANE Blayne 01-18-2024 Albumin [Mass/Vol] 3.5 g/dL Normal 3.2-5.3 [facility] Comment on above: Performed By: #### Casey LUGO, 36191-3, CMP, 51200-7, 19430-7 #### [facility] [place] ([id number]) [address] [place] [address] 61361 ALP [Catalytic activity/Vol] 115 U/L Normal 39-130 [facility] Comment on above: Performed By: #### Casey LUGO, 34044-6, CMP, 38106-0, 35559-2 #### [facility] [place] ([id number]) [address] [place] [address] 76293 ALT [Catalytic activity/Vol] 25 U/L Normal 0-31 [facility] Comment on above: Performed By: #### Casey LUGO, 44795-8, CMP, 08573-3, 68205-9 #### [facility] [place] ([id number]) [address] [place] [address] 07245 Anion gap [Moles/Vol] 8 mmol/L Normal 5-15 [facility] Comment on above: Performed By: #### C BCA, 54247-7, CMP, 79620-1, 98100-7 #### [facility] [place] ([id number]) [address] [place] [address] 46570 AST [Catalytic activity/Vol] 23 U/L Normal 0-41 [facility] Comment on above: Performed By: #### C BCA, 30783-3, CMP, 25419-1, 93129-6 #### [facility] [place] ([id number]) [address] [place] [address] 05860 Bilirubin [Mass/Vol] 0.7 mg/dL Normal 0.3-1.2 [facility] Comment on above: Performed By: #### C BCA, 42294-4, CMP, 79987-7, 04431-0 #### [facility] [place] ([id number]) [address] [place] [address] 56734 Calcium [Mass/Vol] 9.2 mg/dL Normal 8.5-10.5 [facility] Comment on above: Performed By: #### C BCA, 24120-4, CMP, 76246-5, 26710-3 #### [facility] [place] ([id number]) [address] [place] [address] 13575 Chloride [Moles/Vol] 98 mmol/L Normal 98-109 [facility] Comment on above: Performed By: #### C BCA, 92366-1, CMP, 63676-6, 87403-7 #### [facility] [place] ([id number]) [address] [place] [address] 57058 CO2 [Moles/Vol] 32 mmol/L Normal 22-32 [facility] Comment on above: Performed By: #### C BCA, 15284-9, CMP, 63890-7, 49132-4 #### [facility] [place] ([id number]) [address] [place] [address] 17169 Creatinine [Mass/Vol] 0.56 mg/dL Normal 0.40-1.00 [facility] Comment on above: Result Comment: METH OD TRACEABLE TO IDMS STANDARD Performed By: #### C BRITTNEY, 60843-6, CMP, 32340-0, 54494-2 #### [facility] [place] ([id number]) [address] [place] [address] 72777 eGFR (CKD-EPI) NON-RACE DEPENDENT >90 Normal >59 [facility] Comment on above: Result Comment: Reported eGFR is based on the CKD-EPI 2020 equation that does not use a race coefficient. Performed By: #### C BRITTNEY, 19192-0, CMP, 36768-8, 81687-7 #### [facility] [place] ([id number]) [address] [place] [address] 01029 Glucose [Mass/Vol] 113 mg/dL High 65-99 [facility] Comment on above: Performed By: #### C BRITTNEY, 36015-5, CMP, , 47131-7 #### [facility] [place] ([id number]) [address] [place] [address] 42688 Potassium [Moles/Vol] 3.4 mmol/L Low 3.5-5.0 [facility] Comment on above: Performed By: #### C BCA, 08058-2, CMP, 63426-7, 39718-6 #### [facility] [place] ([id number]) [address] [place] [address] 39860 Protein [Mass/Vol] 7.2 g/dL Normal 6.0-8.0 [facility] Comment on above: Performed By: #### C BRITTNEY, 82657-3, CMP, 61250-8, 79869-2 #### [facility] [place] ([id number]) [address] [place] [address] 78559 Sodium [Moles/Vol] 138 mmol/L Normal 134-146 [facility] Comment on above: Performed By: #### Casey LUGO, 38914-0, CMP, , 20269-7 #### [facility] [place] ([id number]) [address] [place] [address] 46125 Urea nitrogen [Mass/Vol] 14 mg/dL Normal 5-27 [facility] Comment on above: Performed By: #### Casey LUGO, 65190-6, CMP, , 32103-0 #### [facility] [place] ([id number]) [address] [place] [address] 24479 Glucose Glucometer (dC) [M ass/Vol]on 01-18-2024 Glucose [Mass/Vol] 256 mg/dL High 65-99 [facility] Glucose [Mass/Vol] 235 mg/dL High 65-99 [facility] Glucose [Mass/Vol] 302 mg/dL High 65-99 [facility] Glucose [Mass/Vol] 108 mg/dL High 65-99 [facility] MAGNESIUMon 01-18-2024 Magnesium [Mass/Vol] 2.1 mg/dL Normal 1.8-2.6 [facility] Comment on above: Performed By: #### Casey LUGO, 73099-2, CMP, 61045-0, 70596-7 #### [facility] [place] ([id number]) [address] [place] [address] 24819 POTASSIUMon 01-18-2024 Potassium [Moles/Vol] 4.7 mmol/L Normal 3.5-5.0 [facility] Comment on above: Performed By: #### Casey LUGO, 81909-9, CMP, 22800-8, 02445-1 #### [facility] [place] ([id number]) [address] [place] [address] 30272 CBC AND AUTO DIFFon 01-17-20 24 ABSOLUTE BASOPHIL 0.0 X10E9/L Normal 0.0-0.2 [facility] Comment on above: Performed By: #### Casey BCA, 70174-5, CMP, 53659-5, 07633-6 #### [facility] [place] ([id number]) [address] [place] [address] 89117 ABSOLUTE NEUTROPHIL 6.1 X10E9/L Normal 1.5-6.6 [facility] Comment on above: Performed By: #### Casey LUGO, 22213-3, CMP, 25238-6, 13595-5 #### [facility] [place] ([id number]) [address] [place] [address] 25191 Basophils/100 WBC (Bld) 0.4 % Normal [facility] Comment on above: Performed By: #### Casey BCA, 79736-6, CMP, 33407-3, 47948-3 #### [facility] ([id number]) [address] [place] [address] 26753 Eosinophils (Bld) [#/Vol] 0.3 10*3/uL Normal 0.0-0.4 [facility] Comment on above: Performed By: #### C BCA, 85887-9, CMP, 55113-8, 00598-5 #### [facility] ([id number]) [address] [place] [address] 13361 Eosinophils/100 WBC (Bld) 2.7 % Normal [facility] Comment on above: Performed By: #### C BCA, 58738-2, CMP, 83833-7, 62731-3 #### [facility] ([id number]) [address] [place] [address] 89323 Erythrocyte distribution width (RBC) [Ratio] 13.6 % Normal 11.5-15.0 [facility] Comment on above: Performed By: #### Casey LUGO, 83172-0, CMP, 02234-1, 55950-6 #### [facility] ([id number]) [address] [place] [address] 22407 Hematocrit (Bld) [Volume fraction] 50.3 % High 35-47 [facility] Comment on above: Performed By: #### Casey LUGO, 85853-3, [facility], 25690-1, 26830-2 #### [facility] ([id number]) [address] [place] [address] 57110 Hemoglobin (Bld) [Mass/Vol] 16.9 g/dL High 11.7-15.5 [facility] Comment on above: Performed By: #### Casey LUGO, 80812-7, [facility], , 17968-9 #### [facility] ([id number]) [address] [place] [address] 95485 Lymphocytes (Bld) [#/Vol] 2.5 10*3/uL Normal 1.0-3.5 [facility] Comment on above: Performed By: #### Casey LUGO, 37093-7, [facility], 61437-1, 40889-5 #### [facility] ([id number]) [address] [place] [address] 84672 Lymphocytes/100 WBC (Bld) 25.5 % Normal [facility] Comment on above: Performed By: #### Casey LUGO, 64697-1, CMP, 34281-1, 16346-4 #### [facility] ([id number]) [address] [place] [address] 44596 MCH (RBC) [Entitic mass] 31.5 pg Normal 27-34 [facility] Comment on above: Performed By: #### C BRITTNEY, 49802-3, CMP, 94332-0, 01369-8 #### [facility] ([id number]) [address] [place] [address] 31293 MCHC (RBC) [Mass/Vol] 33.7 g/dL Normal 32-36 [facility] Comment on above: Performed By: #### Casey LUGO, 31385-6, CMP, 11506-8, 98775-4 #### [facility] ([id number]) [address] [place] [address] 95508 MCV (RBC) [Entitic vol] 94 fL Normal 80-100 [facility] Comment on above: Performed By: #### Casey LUGO, 34820-5, CMP, 85005-7, 11576-7 #### [facility] ([id number]) [address] [place] [address] 93327 Monocytes (Bld) [#/Vol] 0.9 10*3/uL Normal 0-0.9 [facility] Comment on above: Performed By: #### Casey LUGO, 51388-5, CMP, 01680-5, 33862-1 #### [facility] ([id number]) [address] [place] [address] 53766 Monocytes/100 WBC (Bld) 8.8 % Normal [facility] Comment on above: Performed By: #### Casey LUGO, 97825-4, CMP, 35715-5, 33816-5 #### [facility] ([id number]) [address] [place] [address] 60202 Neutrophils/100 WBC (Bld) 62.6 % Normal [facility] Comment on above: Performed By: #### Casey LUGO, 69120-4, CMP, 97205-2, 29655-0 #### [facility] ([id number]) [address] [place] [address] 33884 Platelet mean volume (Bld) [Entitic vol] 9.3 fL Normal 7-12 [facility] Comment on above: Performed By: #### Casey LUGO, 96164-1, CMP, 66725-5, 64515-4 #### [facility] ([id number]) [address] [place] [address] 71201 Platelets (Bld) [#/Vol] 243 10*3/uL Normal 150-450 [facility] Comment on above: Performed By: #### Casey LUGO, 81210-6, CMP, 92912-1, 31029-6 #### [facility] ([id number]) [address] [place], [place] [address] RBC COUNT 5.38 X10E12/L High 3.80-5.20 [facility] Comment on above: Performed By: #### Casey LUGO, 86512-2, CMP, , 79385-4 #### [facility] ([id number]) [address] [place] [address] 60955 WBC (Bld) [#/Vol] 9.8 10*3/uL Normal 4.0-11.0 [facility] Comment on above: Performed By: #### Casey LUGO, 48417-0, CMP, 71351-8, 81454-7 #### [facility] ([id number]) [address] [place] [address] 96403 COMPREHENSIVE METABOLIC PANE Blayne 01-17-2024 Albumin [Mass/Vol] 3.1 g/dL Low 3.2-5.3 [facility] Comment on above: Performed By: #### Casey LUGO, 08385-4, CMP, 31634-4, 35778-4 #### [facility] ([id number]) [address] [place] [address] 19093 ALP [Catalytic activity/Vol] 101 U/L Normal 39-130 [facility] Comment on above: Performed By: #### C BCA, 61943-6, CMP, 98390-8, 19779-1 #### [facility] ([id number]) [address] [place] [address] 58339 ALT [Catalytic activity/Vol] 17 U/L Normal 0-31 [facility] Comment on above: Performed By: #### C BCA, 94482-5, CMP, 70198-7, 03434-7 #### [facility] ([id number]) [address] [place] [address] 44493 Anion gap [Moles/Vol] 8 mmol/L Normal 5-15 [facility] Comment on above: Performed By: #### C BCA, 67987-1, CMP, 07268-8, 38936-6 #### [facility] ([id number]) [address] [place] [address] 87857 AST [Catalytic activity/Vol] 18 U/L Normal 0-41 [facility] Comment on above: Performed By: #### C BCA, 78466-4, CMP, 88623-9, 05441-0 #### [facility] ([id number]) [address] [place] [address] 53832 Bilirubin [Mass/Vol] 1.0 mg/dL Normal 0.3-1.2 [facility] Comment on above: Performed By: #### C BCA, 94874-5, CMP, 12192-2, 32923-3 #### [facility] ([id number]) [address] [place] [address] 92915 Calcium [Mass/Vol] 8.4 mg/dL Low 8.5-10.5 [facility] Comment on above: Performed By: #### C BCA, 41407-0, CMP, 90211-4, 93471-2 #### [facility] ([id number]) [address] [place] [address] 01349 Chloride [Moles/Vol] 95 mmol/L Low 98-109 [facility] Comment on above: Performed By: #### C BCA, 30696-2, CMP, 78107-1, 86767-4 #### [facility] ([id number]) [address] [place] [address] 52088 CO2 [Moles/Vol] 30 mmol/L Normal 22-32 [facility] Comment on above: Performed By: #### C BRITTNEY, 28271-0, CMP, 63449-7, 11857-0 #### [facility] ([id number]) [address] [place] [address] 77204 Creatinine [Mass/Vol] 0.63 mg/dL Normal 0.40-1.00 [facility] Comment on above: Result Comment: METH OD TRACEABLE TO IDMS STANDARD Performed By: #### C BRITTNEY, 19745-4, [facility], 74442-6, 63393-3 #### [facility] ([id number]) [address] [place] [address] 90324 eGFR (CKD-EPI) NON-RACE DEPENDENT >90 Normal >59 [facility] Comment on above: Result Comment: Reported eGFR is based on the CKD-EPI 2020 equation that does not use a race coefficient. Performed By: #### C BRITTNEY, 97068-5, [facility], 03677-6, 61312-9 #### [facility] ([id number]) [address] [place] [address] 76075 Glucose [Mass/Vol] 229 mg/dL High 65-99 [facility] Comment on above: Performed By: #### C BCA, 14753-2, CMP, 56105-1, 31135-6 #### [facility] ([id number]) [address] [place] [address] 51852 Potassium [Moles/Vol] 2.8 mmol/L Low 3.5-5.0 [facility] Comment on above: Performed By: #### C BCA, 13708-9, CMP, 53183-3, 33485-2 #### [facility] ([id number]) [address] [place] [address] 58275 Protein [Mass/Vol] 6.5 g/dL Normal 6.0-8.0 [facility] Comment on above: Performed By: #### C BCA, 60595-1, CMP, 85365-7, 72922-8 #### [facility] ([id number]) [address] [place] [address] 85660 Sodium [Moles/Vol] 133 mmol/L Low 134-146 [facility] Comment on above: Performed By: #### C BCA, 14647-8, CMP, , 46531-7 #### [facility] ([id number]) [address] [place] [address] 95942 Urea nitrogen [Mass/Vol] 9 mg/dL Normal 5-27 [facility] Comment on above: Performed By: #### C BCA, 25329-0, CMP, , 66549-7 #### [facility] ([id number]) [address] [place] [address] 14286 Glucose Glucometer (dC) [M ass/Vol]on 01-17-2024 Glucose [Mass/Vol] 406 mg/dL Critically high 65-99 P [facility] Glucose [Mass/Vol] 296 mg/dL High 65-99 [facility] Glucose [Mass/Vol] 302 mg/dL High 65-99 [facility] MAGNESIUMon 01-17-2024 Magnesium [Mass/Vol] 2.1 mg/dL Normal 1.8-2.6 [facility] Comment on above: Performed By: #### C BCA, 79584-5, CMP, , 11377-7 #### [facility] ([id number]) [address] [place] [address] 58681 POTASSIUMon 01-17-2024 Potassium [Moles/Vol] 3.7 mmol/L Normal 3.5-5.0 [facility] Comment on above: Performed By: #### C BRITTNEY, 31687-6, CMP, 54683-8, 57765-0 #### [facility] ([id number]) [address] [place] [address] 29634 URINE CULTUREon 01-17-2024 Bacteria identified Cx Nom (U) CULTURE RESULTS 10-50,000 ORGANISMS/mL NORMAL UROGENITAL AMILCAR Normal [facility] Comment on above: Performed By: #### C BRITTNEY, 63657-2, CMP, 78485-9, 21148-9 #### [facility] ([id number]) [address] [place] [address] 33406 CBC AND AUTO DIFFon 01-16-20 24 ABSOLUTE BASOPHIL 0.0 X10E9/L Normal 0.0-0.2 [facility] Comment on above: Performed By: #### Casey LUGO, 94941-1, CMP, , 22614-2 #### [facility] ([id number]) [address] [place] [address] 61259 ABSOLUTE NEUTROPHIL 10.0 X10E9/L High 1.5-6.6 [facility] Comment on above: Performed By: #### Casey BCA, 58020-8, CMP, 31147-3, 62269-1 #### [facility] ([id number]) [address] [place] [address] 01003 Basophils/100 WBC (Bld) 0.3 % Normal [facility] Comment on above: Performed By: #### Casey LUGO, 23854-4, CMP, 43312-0, 72558-3 #### [facility] ([id number]) [address] [place] [address] 40165 Eosinophils (Bld) [#/Vol] 0.1 10*3/uL Normal 0.0-0.4 [facility] Comment on above: Performed By: #### Casey LUGO, 65495-5, CMP, 68746-1, 78763-7 #### [facility] ([id number]) [address] [place] [address] 01389 Eosinophils/100 WBC (Bld) 0.9 % Normal [facility] Comment on above: Performed By: #### Casey LUGO, 22859-1, [facility], 03698-5, 32831-0 #### [facility] ([id number]) [address] [place] [address] 68949 Erythrocyte distribution width (RBC) [Ratio] 13.5 % Normal 11.5-15.0 [facility] Comment on above: Performed By: #### Casey LUGO, 69576-3, [facility], 52443-1, 29287-9 #### [facility] ([id number]) [address] [place] [address] 62166 Hematocrit (Bld) [Volume fraction] 49.5 % High 35-47 [facility] Comment on above: Performed By: #### Casey LUGO, 44774-6, [facility], 31548-2, 45751-0 #### [facility] ([id number]) [address] [place] [address] 03645 Hemoglobin (Bld) [Mass/Vol] 16.8 g/dL High 11.7-15.5 [facility] Comment on above: Performed By: #### Casey LUGO, 37270-3, CMP, 98947-9, 92017-7 #### [facility] ([id number]) [address] [place] [address] 34033 Lymphocytes (Bld) [#/Vol] 1.9 10*3/uL Normal 1.0-3.5 [facility] Comment on above: Performed By: #### Casey LUGO, 04001-3, CMP, 15863-5, 49435-0 #### [facility] ([id number]) [address] [place] [address] 57971 Lymphocytes/100 WBC (Bld) 14.4 % Normal [facility] Comment on above: Performed By: #### Casey LUGO, 78528-8, CMP, 38152-2, 80943-6 #### [facility] ([id number]) [address] [place] [address] 76820 MCH (RBC) [Entitic mass] 31.7 pg Normal 27-34 [facility] Comment on above: Performed By: #### Casey LUGO, 41648-1, CMP, 22375-2, 35680-3 #### [facility] ([id number]) [address] [place] [address] 40666 MCHC (RBC) [Mass/Vol] 33.9 g/dL Normal 32-36 [facility] Comment on above: Performed By: #### Casey LUGO, 63835-8, CMP, , 49026-4 #### [facility] ([id number]) [address] [place] [address] 26250 MCV (RBC) [Entitic vol] 94 fL Normal 80-100 [facility] Comment on above: Performed By: #### Casey LUGO, 98749-5, CMP, 92487-3, 97280-6 #### [facility] ([id number]) [address] [place] [address] 26122 Monocytes (Bld) [#/Vol] 1.1 10*3/uL High 0-0.9 [facility] Comment on above: Performed By: #### Casey LUGO, 44786-2, CMP, 42787-8, 19746-1 #### [facility] ([id number]) [address] [place] [address] 81493 Monocytes/100 WBC (Bld) 8.6 % Normal [facility] Comment on above: Performed By: #### Casey LUGO, 76929-1, CMP, 90783-5, 83768-1 #### [facility] ([id number]) [address] [place] [address] 54191 Neutrophils/100 WBC (Bld) 75.8 % Normal [facility] Comment on above: Performed By: #### Casey LUGO, 44247-9, CMP, 72705-4, 78199-2 #### [facility] ([id number]) [address] [place] [address] 68153 Platelet mean volume (Bld) [Entitic vol] 9.3 fL Normal 7-12 [facility] Comment on above: Performed By: #### Casey LUGO, 63416-7, CMP, 89471-3, 48123-6 #### [facility] ([id number]) [address] [place] [address] 14015 Platelets (Bld) [#/Vol] 254 10*3/uL Normal 150-450 [facility] Comment on above: Performed By: #### Casey LUGO, 84396-2, CMP, 54208-2, 20374-7 #### [facility] ([id number]) [address] [place] [address] 97460 RBC COUNT 5.29 X10E12/L High 3.80-5.20 [facility] Comment on above: Performed By: #### Casey LUGO, 10556-9, CMP, 74746-5, 61897-6 #### [facility] ([id number]) [address] [place] [address] 40720 WBC (Bld) [#/Vol] 13.2 10*3/uL High 4.0-11.0 [facility] Comment on above: Performed By: #### C BCA, 66268-0, CMP, 91131-6, 73071-8 #### [facility] ([id number]) [address] [place] [address] 44922 COMPREHENSIVE METABOLIC PANE Blayne 01-16-2024 Albumin [Mass/Vol] 3.5 g/dL Normal 3.2-5.3 [facility] Comment on above: Performed By: #### C BCA, 24038-2, CMP, 58210-2, 56979-1 #### [facility] ([id number]) [address] [place] [address] 35492 ALP [Catalytic activity/Vol] 106 U/L Normal 39-130 [facility] Comment on above: Performed By: #### C BCA, 23371-8, CMP, 88347-2, 30415-6 #### [facility] ([id number]) [address] [place] [address] 23761 ALT [Catalytic activity/Vol] 15 U/L Normal 0-31 [facility] Comment on above: Performed By: #### C BCA, 17159-9, CMP, 44027-4, 50864-8 #### [facility] ([id number]) [address] [place] [address] 00028 Anion gap [Moles/Vol] 10 mmol/L Normal 5-15 [facility] Comment on above: Performed By: #### C BCA, 36739-4, CMP, 57926-9, 86853-5 #### [facility] ([id number]) [address] [place] [address] 84104 AST [Catalytic activity/Vol] 13 U/L Normal 0-41 [facility] Comment on above: Performed By: #### C BCA, 07508-4, CMP, 00559-1, 66507-8 #### [facility] ([id number]) [address] [place] [address] 89916 Bilirubin [Mass/Vol] 0.7 mg/dL Normal 0.3-1.2 [facility] Comment on above: Performed By: #### C BCA, 92063-5, CMP, 85449-1, 73148-1 #### [facility] ([id number]) [address] [place] [address] 21912 Calcium [Mass/Vol] 8.4 mg/dL Low 8.5-10.5 [facility] Comment on above: Performed By: #### C BCA, 68961-5, CMP, 20454-8, 35393-5 #### [facility] ([id number]) [address] [place] [address] 29942 Chloride [Moles/Vol] 92 mmol/L Low 98-109 [facility] Comment on above: Performed By: #### C BCA, 63509-5, CMP, 78295-0, 35975-3 #### [facility] ([id number]) [address] [place] [address] 02501 CO2 [Moles/Vol] 28 mmol/L Normal 22-32 [facility] Comment on above: Performed By: #### C BCA, 52709-7, CMP, 55444-5, 61037-7 #### [facility] ([id number]) [address] [place] [address] 56703 Creatinine [Mass/Vol] 0.77 mg/dL Normal 0.40-1.00 [facility] Comment on above: Result Comment: METH OD TRACEABLE TO IDMS STANDARD Performed By: #### C BCA, 89014-6, CMP, 43233-7, 37213-0 #### [facility] ([id number]) [address] [place] [address] 05604 GFR/1.73 sq M.predicted among non-blacks MDRD (S/P/Bld) [Vol rate/Area] 86 mL/min/{1.73_m2} Normal >59 [facility] Comment on above: Result Comment: Reported eGFR is based on the CKD-EPI 2020 equation that does not use a race coefficient. Performed By: #### C BCA, 29681-0, CMP, 80376-1, 04201-5 #### [facility] ([id number]) [address] [place] [address] 67695 Glucose [Mass/Vol] 512 mg/dL Critically high 65-99 [facility] Comment on above: Performed By: #### C BRITTNEY, 85264-6, [facility], , 28579-3 #### [facility] ([id number]) [address] [place] [address] 71254 Potassium [Moles/Vol] 2.8 mmol/L Low 3.5-5.0 [facility] Comment on above: Performed By: #### C BCA, 71521-7, [facility], , 79719-1 #### [facility] ([id number]) [address] [place] [address] 75183 Protein [Mass/Vol] 6.8 g/dL Normal 6.0-8.0 [facility] Comment on above: Performed By: #### C BRITTNEY, 28388-5, [facility], , 08147-7 #### [facility] ([id number]) [address] [place] [address] 27305 Sodium [Moles/Vol] 130 mmol/L Low 134-146 [facility] Comment on above: Performed By: #### C BCA, 91813-8, CMP, , 86665-4 #### [facility] ([id number]) [address] [place] [address] 49908 Urea nitrogen [Mass/Vol] 8 mg/dL Normal 5-27 [facility] Comment on above: Performed By: #### C BRITTNEY, 58812-6, [facility], 48383-6, 65398-9 #### [facility] ([id number]) [address] [place], [place] [address] CT BRAIN WO CONTon CT BRAIN WO CONT CT BRAIN WO CONT CLINICAL HISTORY: Moderate to severe head trauma, back of head with pain, bleeding and bump. TECHNIQUE: Spiral CT of the brain was performed without contrast material. All CT scans at this facility use dose modulation, iterative reconstruction, and/or weight based dosing when appropriate to reduce radiation dose to as low as reasonably achievable. COMPARISONS: None FINDINGS: The brain appears within normal limits in morphology and attenuation. There is no intracranial mass nor mass effect. Ventricular system appears within normal limits. Basal cisterns and fourth ventricle appear patent. No parenchymal nor extra-axial hemorrhage is identified. Soft tissue hematoma overlies the right occiput. The underlying calvarium appears intact. IMPRESSION: No acute intracranial finding Finalized by Alejandro Jones MD on 01/16/2024 2:11 PM Normal [facility] Glucose Glucometer (BldC) [M ass/Vol]on 01-16-2024 Glucose [Mass/Vol] 254 mg/dL High 65-99 [facility] Glucose [Mass/Vol] 265 mg/dL High 65-99 [facility] Glucose [Mass/Vol] 381 mg/dL High 65-99 [facility] Glucose [Mass/Vol] 373 mg/dL High 65-99 [facility] MAGNESIUMon 01-16-2024 Magnesium [Mass/Vol] 2.0 mg/dL Normal 1.8-2.6 [facility] Comment on above: Performed By: #### C BRITTNEY, 83528-9, [facility], 86426-0, 15359-3 #### [facility] ([id number]) [address] [place] [address] 23881 Procalcitonin IA [Mass/Vol]o n 01-16-2024 PROCALCITONIN 0.07 ng/mL High <0.05 [facility] Comment on above: Result Comment: NOTE <0.50 ng/mL - Low risk of severe sepsis and/or septic shock. <2.00 ng/mL - Recommend retesting within 6-24 hours. >2.00 ng/mL - High risk of sepsis and/or septic shock. Performed By: #### C BRITTNEY, 26643-9, CMP, 36454-6, 14282-8 #### [facility] ([id number]) [address] [place] [address] 51301 Troponin I.cardiac High sens itivity method [Mass/Vol]on 01-16-2024 1 HOUR TROP I, HIGH SENSITIVITY 5 ng/L Normal <16 [facility] Comment on above: Performed By: #### 8 9579-7 #### [facility] ([id number]) [address] [place] [address] 49793 TROPONIN I, HIGH SENSITIVITY 5 ng/L Normal <16 [facility] Comment on above: Performed By: #### C BRITTNEY, 15894-7, [facility], 72028-7, 80693-0 #### [facility] ([id number]) [address] [place] [address] 13891 URINALYSISon 01-16-2024 Bilirubin Ql (U) Negative Normal NEG [facility] Comment on above: Performed By: #### C BRITTNEY, 54265-4, CMP, 43365-9, 83229-6 #### [facility] ([id number]) [address] [place] [address] [place] [address] BLOOD/HGB Trace Abnormal NEG [facility] Comment on above: Performed By: #### C BRITTNEY, 39130-2, CMP, 72775-1, 48992-4 #### [facility] ([id number]) [address] [place] [address] 46494 Color (U) YELLOW Normal YELLOW [facility] Comment on above: Performed By: #### C BRITTNEY, 16844-7, CMP, 11186-0, 21689-2 #### [facility] ([id number]) [address] [place] [address] 82996 Glucose Ql (U) >1000 Abnormal NEG [facility] Comment on above: Performed By: #### C BCA, 50992-6, CMP, 60212-5, 49508-4 #### [facility] ([id number]) [address] [place] [address] 84885 Ketones Ql (U) Negative Normal NEG [facility] Comment on above: Performed By: #### C BCA, 85352-2, CMP, 53814-7, 10869-3 #### [facility] ([id number]) [address] [place] [address] 83944 Leukocyte esterase Test strip Ql (U) Negative Normal NEG [facility] Comment on above: Result Comment: HIGH CONCENTRATIONS OF GLUCOSE MAY DECREASE THE REACTIVITY OF THE DIPSTICK LEUKOCYTE TEST PAD. Performed By: #### C BRITTNEY, 60645-9, CMP, 89587-2, 40575-1 #### [facility] ([id number]) [address] [place] [address] 28490 Nitrite Ql (U) Negative Normal [facility] Comment on above: Performed By: #### Casey BCA, 66710-2, CMP, 18269-1, 63847-0 #### [facility] ([id number]) [address] [place] [address] 05737 pH (U) 6.0 [pH] Normal 5.0-8.5 [facility] Comment on above: Performed By: #### C BCA, 26146-0, CMP, 43160-5, 06720-1 #### [facility] ([id number]) [address] [place] [address] 80209 Protein Ql (U) Negative Normal NEG [facility] Comment on above: Performed By: #### Casey LUGO, 90365-3, CMP, 40793-9, 00913-3 #### [facility] ([id number]) [address] [place] [address] 27198 R.B.CELLS 6 /hpf High 0-5 [facility] Comment on above: Performed By: #### Casey LUGO, 55189-2, CMP, 26446-7, 31864-4 #### [facility] ([id number]) [address] [place] [address] 24459 Specific gravity (U) [Rel density] <1.005 Normal 1.003-1.035 [facility] Comment on above: Performed By: #### Casey LUGO, 29054-8, CMP, 41722-7, 68441-3 #### [facility] ([id number]) [address] [place] [address] [place] [address] SQUAMOUS EPITHELIUM 2 /hpf Normal 0-5 [facility] Comment on above: Performed By: #### Casey LUGO, 35002-0, CMP, 67162-3, 18240-0 #### [facility] ([id number]) [address] [place] [address] 76410 TURBIDITY CLEAR Normal CLEAR [facility] Comment on above: Performed By: #### Casey LUGO, 80787-1, CMP, , 44115-9 #### [facility] ([id number]) [address] [place] [address] [place] [address] Urobilinogen Qn (U) 0.2 {Beau'U}/dL Normal <1.1 [facility] Comment on above: Performed By: #### Casey LUGO, 21631-7, CMP, 13318-2, 11484-7 #### [facility] ([id number]) [address] [place] [address] 12993 W.B.CELLS 2 /hpf Normal 0-5 [facility] Comment on above: Performed By: #### C BCA, 02902-2, CMP, 49334-5, 30884-3 #### [facility] ([id number]) [address] [place] [address] 38299 URN MACROSCOPIC NURon 2023 BILIRUBIN ANISHA Negative Normal NEG [facility] Comment on above: Performed By: #### N UM #### [facility] ([id number]) [address] [place] [address] [place] [address] BLOOD/HGB ANISHA Trace Abnormal NEG [facility] Comment on above: Performed By: #### N UM #### [facility] ([id number]) [address] [place] [address] [place] [address] GLUCOSE ANISHA >=1000 Abnormal NEG [facility] Comment on above: Performed By: #### N UM #### [facility] ([id number]) [address] [place] [address] [place] [address] KETONES ANISHA Negative Normal NEG [facility] Comment on above: Performed By: #### N UM #### [facility] ([id number]) [address] [place] [address] [place] [address] LEUKOCYTE ESTERASE ANISHA Trace Abnormal NEG [facility] Comment on above: Performed By: #### N UM #### [facility] ([id number]) [address] [place] [address] [place] [address] NITRITE ANISHA Negative Normal NEG [facility] Comment on above: Performed By: #### N UM #### [facility] ([id number]) [address] [place] [address] [place] [address] PH ANISHA 5.5 Normal 5.0-8.5 [facility] Comment on above: Performed By: #### N UM #### [facility] ([id number]) [address] [place] [address] PROTEIN ANISHA Negative Normal NEG [facility] Comment on above: Performed By: #### N UM #### [facility] ([id number]) [address] [place] [address] 10595 SPECIFIC GRAVITY ANISHA <=1.005 Normal 1.003-1.035 [facility] Comment on above: Performed By: #### N UM #### [facility] ([id number]) [address] [place] [address] 89351 UROBILINOGEN AINSHA 0.2 eu/dL Normal <1.1 [facility] Comment on above: Performed By: #### N UM #### [facility] ([id number]) [address] [place] [address] 63169 36on 09-05-2023 36 Can order for lasix 20mg daily. Thanks [facility] 36on 09-04-2023 36 Doesn't look like we have noted her to be on lasix since 01/2023. How often was she taking it? Was her PCP prescribing it? [facility] Office Visiton 01-08-2023 Follow-up visit [id number] Roddy Dior 1960 F Date Provider Department Center 01/08/2023 [id number] [facility] Family History Problem Relation Age of Onset Stroke Father Family Status - Relation Status Age at Father Level of Service:71377 NM OFFICE/OUTPATIENT ESTABLISHED MOD MDM 30-39 MIN [facility] XR DEXA BONE DENSITYon 10-02 XR DEXA [...] by: PATRICK HART Date: 2022-10-02 12:08 Normal [facility] LIPID PROFILEon 08-09-2022 CHOL-HDL RATIO NORM SEE BELOW Normal [facility] Comment on above: Result Comment: 3.3 - 4.4 LOW RISK 4.4 - 7.1 AVERAGE RISK 7.1 - 11.0 MODERATE RISK >11.0 HIGH RISK Performed By: #### M ALBR #### [facility] [address] [place] [address] Dr. Maru Disla Cholesterol [Mass/Vol] 110 mg/dL Normal <=200 [facility] Comment on above: Performed By: #### M ALBR #### [facility] [address] [address] [address] Maru Disla Cholesterol in HDL [Mass/Vol] 38 mg/dL Critically low 40-60 [facility] Comment on above: Performed By: #### M ALBR #### [facility] [address] [address] [address] Maru Disla Cholesterol in LDL [Mass/Vol] 52.4 mg/dL Normal [facility] Comment on above: Performed By: #### M ALBR #### [facility] [address] [address] [address] Maru Disla Cholesterol.total/C holesterol in HDL [Mass ratio] 2.9 {ratio} Normal [facility] Comment on above: Performed By: #### M ALBR #### [facility] [address] [address] [address] Maru Disla HDL NORMAL > or = 60 mg/dl - LO W CARDIOVASCULAR RISK <40 mg/dl - HIGH CARDIOVASCULAR RISK Normal [facility] Comment on above: Performed By: #### M ALBR #### [facility] [address] [address] [address] Maru Disla LDL CALC NORMAL SEE BELOW Normal [facility] Comment on above: Result Comment: <100 mg/dl OPTIMAL 100 - 129 mg/dl NEAR OR ABOVE OPTIMAL 130 - 159 mg/dl BORDERLINE HIGH 160 - 189 mg/dl HIGH >190 mg/dl VERY HIGH Performed By: #### M ALBR #### [facility] [address] [address] [address] Maru Disla Triglyceride [Mass/Vol] 98 mg/dL Normal <=150 [facility] Comment on above: Performed By: #### M ALBR #### [facility] [address] [address] [address] Maru Disla VLDL CALC 19.6 mg/dL Normal [facility] Comment on above: Performed By: #### M ALBR #### [facility] [address] [place] [address] Dr. Maru Disla MICROALBUMIN, RAND URon 03-0 mALB <1.3 Normal <=30.0 [facility] Comment on above: Performed By: #### M ALBR #### [facility] [address] [place] [address] Dr. Maru Disla PROF 14(COMP METB)on 023 Albumin [Mass/Vol] 3.6 g/dL Normal 3.4-5.0 [facility] Comment on above: Performed By: #### M ALBR #### [facility] [address] [place] [address] Dr. Maru Disla Albumin/Globulin [Mass ratio] 0.9 {ratio} Normal [facility] Comment on above: Performed By: #### M ALBR #### [facility] [address] [address] [address] Maru Disla ALP [Catalytic activity/Vol] 92 U/L Normal 46-116 [facility] Comment on above: Performed By: #### M ALBR #### [facility] [address] [place] [address] Dr. Maru Disla ALT [Catalytic activity/Vol] 22 U/L Normal 14-59 [facility] Comment on above: Performed By: #### M ALBR #### [facility] [address] [address] [address] Maru Disla Anion gap [Moles/Vol] 13.2 mmol/L Normal [facility] Comment on above: Performed By: #### M ALBR #### [facility] [address] [address] [address] Maru Disla AST [Catalytic activity/Vol] 17 U/L Normal 15-37 [facility] Comment on above: Performed By: #### M ALBR #### [facility] [address] [address] [address] Maru Disla Bilirubin [Mass/Vol] 0.4 mg/dL Normal 0.2-1.0 [facility] Comment on above: Performed By: #### M ALBR #### [facility] [address] [place] [address] Dr. Maru Disla Calcium [Mass/Vol] 9.3 mg/dL Normal 8.5-10.1 [facility] Comment on above: Performed By: #### M ALBR #### [facility] [address] [place] [address] Dr. Maru Disla Chloride [Moles/Vol] 102 mmol/L Normal 98-107 [facility] Comment on above: Performed By: #### M ALBR #### [facility] [address] [place] [address] Dr. Maru Disla CO2 [Moles/Vol] 29.7 mmol/L Normal 21.0-32.0 [facility] Comment on above: Performed By: #### M ALBR #### [facility] [address] [place] [address] Dr. Maru Disla Creatinine [Mass/Vol] 0.74 mg/dL Normal 0.55-1.02 [facility] Comment on above: Performed By: #### M ALBR #### [facility] [address] [place] [address] Dr. Maru Disla EGFR-AF SUDANESE >60 Normal >=60 [facility] Comment on above: Performed By: #### M ALBR #### [facility] [address] [address] [address] Maru Disla EGFR-NON AF SUDANESE >60 Normal >=60 [facility] Comment on above: Performed By: #### M ALBR #### [facility] [address] [address] [address] Maru Disla Globulin (S) [Mass/Vol] 3.9 g/dL Normal [facility] Comment on above: Performed By: #### M ALBR #### [facility] [address] [address] [address] Maru Disla Glucose [Mass/Vol] 271 mg/dL Critically high 74-106 [facility] Comment on above: Performed By: #### M ALBR #### [facility] [address] [place] [address] Dr. Maru Disla Potassium [Moles/Vol] 3.9 mmol/L Normal 3.5-5.1 [facility] Comment on above: Performed By: #### M ALBR #### [facility] [address] [place] [address] Dr. Maru Disla Protein [Mass/Vol] 7.5 g/dL Normal 6.4-8.2 [facility] Comment on above: Performed By: #### M ALBR #### [facility] [address] [place] [address] Dr. Maru Disla Sodium [Moles/Vol] 141 mmol/L Normal 136-145 [facility] Comment on above: Performed By: #### M ALBR #### [facility] [address] [place] [address] Dr. Maru Disla Urea nitrogen [Mass/Vol] 8.0 mg/dL Normal 7.0-18.0 [facility] Comment on above: Performed By: #### M ALBR #### [facility] [address] [place] [address] Dr. Maru Disla Urea nitrogen/Creatinine [Mass ratio] 10.8 mg/mg Normal [facility] Comment on above: Performed By: #### M ALBR #### [facility] [address] [address] [address] Maru Disla MG MAMM SCREEN 3D BALDO CADon 06-21-2022 MG MAMM SCREEN 3D BALDO CAD Patient: RODDY DIOR Exam Date: 06/21/2022 : 1960 Gender:F Ordering : DMITRY MAIRA [employer] Admission #: [id number] Family : Order #: [id number] CLICK HERE TO VIEW EXAM RADIOLOGY REPORT [...] breast cancer at age 64. LOCATION: [facility] BREAST COMPOSITION: Scattered areas fibroglandular density. [...] MD on 06/21/2022 at 10:10 Normal [facility] HEMOGLOBINon 06-20-2022 Hemoglobin (Bld) [Mass/Vol] 15.1 g/dL Normal 12.0-16.0 [facility] Comment on above: Performed By: #### B MP #### [facility] [address] [address] [address] Maru Disla BNPon 04-09-2022 Natriuretic peptide B (Bld) [Mass/Vol] 824.0 pg/mL Normal <=900.0 [facility] Comment on above: Performed By: #### M ALBR #### [facility] [address] [address] [address] Maru Disla CARDIAC BREANNE ADMITon 022 CK [Catalytic activity/Vol] 364 U/L Critically high 26-192 [facility] Comment on above: Performed By: #### P OCGLUC #### [facility] [address] [place] [address] Dr. Maru Disla CK.MB [Mass/Vol] 5.60 ng/mL Critically high <=3.60 [facility] Comment on above: Performed By: #### P OCGLUC #### [facility] [address] [place] [address] Dr. Maru Disla HSTROP 454.7 pg/mL Critically high 4.0-51.3 [facility] Comment on above: Result Comment: CUT- OFF POINTS HAVE BEEN ESTABLISHED BASED ON THE FOURTH UNIVERSAL DEFINITIONS OF MYOCARDIAL INFARCTION. THE UPPER REFERENCE LIMIT (URL) OF TROPONIN, DEFINED THE 99TH PERCENTILE OF cTnI DISTRIBUTION IN A REFERENCE POPULATION, HAS BEEN CONFIRMED THE DECISION THRESHOLD FOR UT DIAGNOSIS. Performed By: #### P OCGLUC #### [facility] [address] [place] [address] Dr. Maru Disla REDD 137 ng/mL Critically high 9-82 [facility] Comment on above: Performed By: #### P OCGLUC #### [facility] [address] [place] [address] Dr. Maru Disla CBC AUTO DIFFon 04-09-2022 BASO # 0.0 103/ul Normal 0.0-0.1 [facility] Comment on above: Performed By: #### A BG #### [facility] [address] [place] [address] Dr. Maru Disla Basophils/100 WBC (Bld) 0.2 % Normal 0.2-2.0 [facility] Comment on above: Performed By: #### A BG #### [facility] [address] [place] [address] Dr. Maru Disla EO # 0.0 103/ul Normal 0.0-0.7 [facility] Comment on above: Performed By: #### A BG #### [facility] [address] [place] [address] Dr. Maru Disla Eosinophils/100 WBC (Bld) 0.0 % Critically low 0.9-7.0 [facility] Comment on above: Performed By: #### A BG #### [facility] [address] [place] [address] Dr. Maru Disla Erythrocyte distribution width (RBC) [Ratio] 13.4 % Normal 11.0-15.0 [facility] Comment on above: Performed By: #### A BG #### [facility] [address] [place] [address] Dr. Maru Disla Hematocrit (Bld) [Volume fraction] 48.3 % Critically high 36.0-48.0 [facility] Comment on above: Performed By: #### A BG #### [facility] [address] [place] [address] Dr. Maru Disla Hemoglobin (Bld) [Mass/Vol] 15.3 g/dL Normal 12.0-16.0 [facility] Comment on above: Performed By: #### A BG #### [facility] [address] [place] [address] Dr. Maru Disla IG # 0.11 10e3/ul Critically high 0.00-0.03 [facility] Comment on above: Performed By: #### A BG #### [facility] [address] [place] [address] Dr. Maru Disla IG % 0.6 % Critically high 0.0-0.5 [facility] Comment on above: Performed By: #### A BG #### [facility] [address] [place] [address] Dr. Maru Disla LYMPH # 1.1 103/ul Critically low 1.2-3.8 [facility] Comment on above: Performed By: #### A BG #### [facility] [address] [place] [address] Dr. Maru Disla Lymphocytes/100 WBC (Bld) 6.1 % Critically low 20.5-60.0 [facility] Comment on above: Performed By: #### A BG #### [facility] [address] [place] [address] Dr. Maru Disla MANUAL DIFF REQ NO Normal [facility] Comment on above: Performed By: #### A BG #### [facility] [address] [place] [address] Dr. Maru Disla MCH (RBC) [Entitic mass] 29.8 pg Normal 26.7-34.0 [facility] Comment on above: Performed By: #### A BG #### [facility] [address] [place] [address] Dr. Maru Disla MCHC (RBC) [Mass/Vol] 31.7 g/dL Normal 29.9-35.2 [facility] Comment on above: Performed By: #### A BG #### [facility] [address] [place] [address] Dr. Maru Disla MCV (RBC) [Entitic vol] 94.2 fL Normal 81.0-99.0 [facility] Comment on above: Performed By: #### A BG #### [facility] [address] [place] [address] Dr. Maru Disla MONO # 0.7 103/ul Normal 0.3-0.8 [facility] Comment on above: Performed By: #### A BG #### [facility] [address] [place] [address] Dr. Maru Disla Monocytes/100 WBC (Bld) 3.9 % Normal 1.7-12.0 [facility] Comment on above: Performed By: #### A BG #### [facility] [address] [place] [address] Dr. Maru Disla NEUT # 15.3 103/ul Critically high 1.4-6.5 [facility] Comment on above: Performed By: #### A BG #### [facility] [address] [place] [address] Dr. Maru Disla Neutrophils/100 WBC (Bld) 89.2 % Critically high 43.0-75.0 [facility] Comment on above: Performed By: #### A BG #### [facility] [address] [place] [address] Dr. Maru Disla Platelet mean volume (Bld) [Entitic vol] 10.4 fL Normal 9.5-13.5 [facility] Comment on above: Performed By: #### A BG #### [facility] [address] [address] [address] Maru Disla PLT 311 103/ul Normal 150-450 [facility] Comment on above: Performed By: #### A BG #### [facility] [address] [place], [place] [address] Dr. Maru Disla RBC 5.13 106/ul Normal 4.20-5.40 [facility] Comment on above: Performed By: #### A BG #### [facility] [address] [place], [place] [address] Dr. Maru Disla WBC 17.2 103/ul Critically high 4.0-11.0 [facility] Comment on above: Performed By: #### A BG #### [facility] [address] [address] [address] Maru Disla ECHOCARDIO M/2D COMPLETEon 1 06-09-2021 ECHOCARDIO M/2D COMPLETE Patient: RODDY DIOR Exam Date: 04/09/2022 : 1960 Gender:F Ordering : DR TERI BLOCK . Admission #: [id number] Family : Order #: [id number] CLICK HERE TO VIEW EXAM ECHOCARDIOGRAM REPORT [...] Subramanian M.D. on 04/10/2022 at 15:44 Normal [facility] POINT OF CARE GLUCOSEon 11-0 Glucose [Mass/Vol] 171 mg/dL Critically high 74-106 [facility] Comment on above: Performed By: #### P OCGLUC #### [facility] [address] [address] [address] Maru Disla Glucose [Mass/Vol] 97 mg/dL Normal 74-106 [facility] Comment on above: Performed By: #### M ALBR #### [facility] [address] [address] [address] Maru Disla PROF CHEM 8 (BAS METB)on Anion gap [Moles/Vol] 9.1 mmol/L Normal [facility] Comment on above: Performed By: #### P OCGLUC #### [facility] [address] [place] [address] Dr. Maru Disla Calcium [Mass/Vol] 8.7 mg/dL Normal 8.5-10.1 [facility] Comment on above: Performed By: #### P OCGLUC #### [facility] [address] [address] [address] Maru Disla Chloride [Moles/Vol] 104 mmol/L Normal 98-107 [facility] Comment on above: Performed By: #### P OCGLUC #### [facility] [address] [address] [address] Maru Disla CO2 [Moles/Vol] 33.2 mmol/L Critically high 21.0-32.0 [facility] Comment on above: Performed By: #### P OCGLUC #### [facility] [address] [place] [address] Dr. Maru Disla Creatinine [Mass/Vol] 0.87 mg/dL Normal 0.55-1.02 [facility] Comment on above: Performed By: #### P OCGLUC #### [facility] [address] [place] [address] Dr. Maru Disla EGFR-AF SUDANESE >60 Normal >=60 [facility] Comment on above: Performed By: #### P OCGLUC #### [facility] [address] [address] [address] Maru Disla EGFR-NON AF SUDANESE >60 Normal >=60 [facility] Comment on above: Performed By: #### P OCGLUC #### [facility] [address] [address] [address] Maru Disla Glucose [Mass/Vol] 115 mg/dL Critically high 74-106 [facility] Comment on above: Performed By: #### P OCGLUC #### [facility] [address] [address] [address] Maru Disla Potassium [Moles/Vol] 4.3 mmol/L Normal 3.5-5.1 [facility] Comment on above: Performed By: #### P OCGLUC #### [facility] [address] [address] [address] Maru Disla Sodium [Moles/Vol] 142 mmol/L Normal 136-145 [facility] Comment on above: Performed By: #### P OCGLUC #### [facility] [address] [address] [address] Maru Disla Urea nitrogen [Mass/Vol] 36.0 mg/dL Critically high 7.0-18.0 [facility] Comment on above: Performed By: #### P OCGLUC #### [facility] [address] [address] [address] Mrau Disla Urea nitrogen/Creatinine [Mass ratio] 41.4 mg/mg Normal [facility] Comment on above: Performed By: #### P OCGLUC #### [facility] [address] [address] [address] Maru Disla CARDIAC BREANNE 3-6on 2 CK [Catalytic activity/Vol] 381 U/L Critically high 26-192 [facility] Comment on above: Performed By: #### C MREP #### [facility] [address] [address] [address] Maru Disla CK.MB [Mass/Vol] 7.91 ng/mL Critically high <=3.60 [facility] Comment on above: Performed By: #### C MREP #### [facility] [address] [place] [address] Dr. Maru Disla HSTROP 766.1 pg/mL Critically high 4.0-51.3 [facility] Comment on above: Result Comment: CUT- OFF POINTS HAVE BEEN ESTABLISHED BASED ON THE FOURTH UNIVERSAL DEFINITIONS OF MYOCARDIAL INFARCTION. THE UPPER REFERENCE LIMIT (URL) OF TROPONIN, DEFINED THE 99TH PERCENTILE OF cTnI DISTRIBUTION IN A REFERENCE POPULATION, HAS BEEN CONFIRMED THE DECISION THRESHOLD FOR UT DIAGNOSIS. Performed By: #### C MREP #### [facility] [address] [address] [address] Maru Disla CK [Catalytic activity/Vol] 356 U/L Critically high 26-192 [facility] Comment on above: Performed By: #### C MREP #### [facility] [address] [place] [address] Dr. Maru Disla CK.MB [Mass/Vol] 8.66 ng/mL Critically high <=3.60 [facility] Comment on above: Performed By: #### C MREP #### [facility] [address] [place] [address] Dr. Maru Disla HSTROP 610.6 pg/mL Critically high 4.0-51.3 [facility] Comment on above: Result Comment: CUT- OFF POINTS HAVE BEEN ESTABLISHED BASED ON THE FOURTH UNIVERSAL DEFINITIONS OF MYOCARDIAL INFARCTION. THE UPPER REFERENCE LIMIT (URL) OF TROPONIN, DEFINED THE 99TH PERCENTILE OF cTnI DISTRIBUTION IN A REFERENCE POPULATION, HAS BEEN CONFIRMED THE DECISION THRESHOLD FOR UT DIAGNOSIS. Performed By: #### C MREP #### [facility] [address] [address] [address] Maru Disla CARDIAC BREANNE ADMITon 022 CK [Catalytic activity/Vol] 381 U/L Critically high 26-192 [facility] Comment on above: Performed By: #### C MADM #### [facility] [address] [address] [address] Maru Disla CK.MB [Mass/Vol] 8.07 ng/mL Critically high <=3.60 [facility] Comment on above: Performed By: #### C MADM #### [facility] [address] [address] [address] Maru Disla HSTROP 220.2 pg/mL Critically high 4.0-51.3 [facility] Comment on above: Result Comment: CUT- OFF POINTS HAVE BEEN ESTABLISHED BASED ON THE FOURTH UNIVERSAL DEFINITIONS OF MYOCARDIAL INFARCTION. THE UPPER REFERENCE LIMIT (URL) OF TROPONIN, DEFINED THE 99TH PERCENTILE OF cTnI DISTRIBUTION IN A REFERENCE POPULATION, HAS BEEN CONFIRMED THE DECISION THRESHOLD FOR UT DIAGNOSIS. Performed By: #### C MADM #### [facility] [address] [address] [address] Maru Disla REDD 269 ng/mL Critically high 9-82 [facility] Comment on above: Performed By: #### C MADM #### [facility] [address] [address] [address] Maru Disla CBC AUTO DIFFon 04-08-2022 BASO # 0.0 103/ul Normal 0.0-0.1 [facility] Comment on above: Performed By: #### M ALBR #### [facility] [address] [address] [address] Maru Disla Basophils/100 WBC (Bld) 0.2 % Normal 0.2-2.0 [facility] Comment on above: Performed By: #### M ALBR #### [facility] [address] [address] [address] Maru Disla EO # 0.0 103/ul Normal 0.0-0.7 [facility] Comment on above: Performed By: #### M ALBR #### [facility] [address] [address] [address] Maru Disla Eosinophils/100 WBC (Bld) 0.0 % Critically low 0.9-7.0 [facility] Comment on above: Performed By: #### M ALBR #### [facility] [address] [address] [address] Maru Disla Erythrocyte distribution width (RBC) [Ratio] 13.4 % Normal 11.0-15.0 [facility] Comment on above: Performed By: #### M ALBR #### [facility] [address] [place] [address] Dr. Maru Disla Hematocrit (Bld) [Volume fraction] 52.7 % Critically high 36.0-48.0 [facility] Comment on above: Performed By: #### M ALBR #### [facility] [address] [place] [address] Dr. Maru Disla Hemoglobin (Bld) [Mass/Vol] 16.8 g/dL Critically high 12.0-16.0 [facility] Comment on above: Performed By: #### M ALBR #### [facility] [address] [place] [address] Dr. Maru Disla IG # 0.13 10e3/ul Critically high 0.00-0.03 [facility] Comment on above: Performed By: #### M ALBR #### [facility] [address] [place] [address] Dr. Maru Disla IG % 0.6 % Critically high 0.0-0.5 [facility] Comment on above: Performed By: #### M ALBR #### [facility] [address] [place] [address] Dr. Maru Disla LYMPH # 0.8 103/ul Critically low 1.2-3.8 [facility] Comment on above: Performed By: #### M ALBR #### [facility] [address] [place] [address] Dr. Maru Disla Lymphocytes/100 WBC (Bld) 3.4 % Critically low 20.5-60.0 [facility] Comment on above: Performed By: #### M ALBR #### [facility] [address] [place] [address] Dr. Maru Disla MANUAL DIFF REQ NO Normal [facility] Comment on above: Performed By: #### M ALBR #### [facility] [address] [place] [address] Dr. Maru Disla MCH (RBC) [Entitic mass] 29.4 pg Normal 26.7-34.0 [facility] Comment on above: Performed By: #### M ALBR #### [facility] [address] [place] [address] Dr. Maru Disla MCHC (RBC) [Mass/Vol] 31.9 g/dL Normal 29.9-35.2 [facility] Comment on above: Performed By: #### M ALBR #### [facility] [address] [place] [address] Dr. Maru Disla MCV (RBC) [Entitic vol] 92.1 fL Normal 81.0-99.0 [facility] Comment on above: Performed By: #### M ALBR #### [facility] [address] [place] [address] Dr. Maru Disla MONO # 0.8 103/ul Normal 0.3-0.8 [facility] Comment on above: Performed By: #### M ALBR #### [facility] [address] [place] [address] Dr. Maru Disla Monocytes/100 WBC (Bld) 3.4 % Normal 1.7-12.0 [facility] Comment on above: Performed By: #### M ALBR #### [facility] [address] [place] [address] Dr. Maru Disla NEUT # 21.8 103/ul Critically high 1.4-6.5 [facility] Comment on above: Performed By: #### M ALBR #### [facility] [address] [place] [address] Dr. Maru Disla Neutrophils/100 WBC (Bld) 92.4 % Critically high 43.0-75.0 [facility] Comment on above: Performed By: #### M ALBR #### [facility] [address] [place] [address] Dr. Maru Disla Platelet mean volume (Bld) [Entitic vol] 10.4 fL Normal 9.5-13.5 [facility] Comment on above: Performed By: #### M ALBR #### [facility] [address] [place] [address] Dr. Maru Disla PLT 335 103/ul Normal 150-450 [facility] Comment on above: Performed By: #### M ALBR #### [facility] [address] [address] [address] Maru Disla RBC 5.72 106/ul Critically high 4.20-5.40 [facility] Comment on above: Performed By: #### M ALBR #### [facility] [address] [address] [address] Maru Disla WBC 23.5 103/ul Critically high 4.0-11.0 [facility] Comment on above: Performed By: #### M ALBR #### [facility] [address] [place] [address] Dr. Maru Disla POINT OF CARE GLUCOSEon 11-0 Glucose [Mass/Vol] 275 mg/dL Critically high 74-106 [facility] Comment on above: Performed By: #### P OCGLUC #### [facility] [address] [place] [address] Dr. Maru Disla Glucose [Mass/Vol] 161 mg/dL Critically high 74-106 [facility] Comment on above: Performed By: #### B MP #### [facility] [address] [place] [address] Dr. Maru Disla Glucose [Mass/Vol] 140 mg/dL Critically high 74-106 [facility] Comment on above: Performed By: #### P OCGLUC #### [facility] [address] [place] [address] Dr. Maru Disla Glucose [Mass/Vol] 219 mg/dL Critically high 74-106 [facility] Comment on above: Performed By: #### P OCGLUC #### [facility] [address] [address] [address] Maru Disla PROF CHEM 8 (BAS METB)on Anion gap [Moles/Vol] 14.0 mmol/L Normal [facility] Comment on above: Performed By: #### M ALBR #### [facility] [address] [place] [address] Dr. Maru Disla Calcium [Mass/Vol] 9.3 mg/dL Normal 8.5-10.1 [facility] Comment on above: Performed By: #### M ALBR #### [facility] [address] [place] [address] Dr. Maru Disla Chloride [Moles/Vol] 98 mmol/L Normal 98-107 [facility] Comment on above: Performed By: #### M ALBR #### [facility] [address] [address] [address] Maru Disla CO2 [Moles/Vol] 30.5 mmol/L Normal 21.0-32.0 [facility] Comment on above: Performed By: #### M ALBR #### [facility] [address] [place] [address] Dr. Maru Disla Creatinine [Mass/Vol] 1.09 mg/dL Critically high 0.55-1.02 [facility] Comment on above: Performed By: #### M ALBR #### [facility] [address] [place] [address] Dr. Maru Disla EGFR-AF SUDANESE >60 Normal >=60 [facility] Comment on above: Performed By: #### M ALBR #### [facility] [address] [place] [address] Dr. Maru Disla EGFR-NON AF SUDANESE 51 mL/min/1.73m2 Critically low >=60 [facility] Comment on above: Performed By: #### M ALBR #### [facility] [address] [place] [address] Dr. Maru Disla Glucose [Mass/Vol] 242 mg/dL Critically high 74-106 [facility] Comment on above: Performed By: #### M ALBR #### [facility] [address] [place] [address] Dr. Maru Disla Potassium [Moles/Vol] 3.5 mmol/L Normal 3.5-5.1 [facility] Comment on above: Performed By: #### M ALBR #### [facility] [address] [place] [address] Dr. Maru Disla Sodium [Moles/Vol] 139 mmol/L Normal 136-145 [facility] Comment on above: Performed By: #### M ALBR #### [facility] [address] [place] [address] Dr. Maru Disla Urea nitrogen [Mass/Vol] 32.0 mg/dL Critically high 7.0-18.0 [facility] Comment on above: Performed By: #### M ALBR #### [facility] [address] [place] [address] Dr. Maru Disla Urea nitrogen/Creatinine [Mass ratio] 29.4 mg/mg Normal [facility] Comment on above: Performed By: #### M ALBR #### [facility] [address] [place] [address] Dr. Maru Disla CBC AUTO DIFFon 04-07-2022 BASO # 0.0 103/ul Normal 0.0-0.1 [facility] Comment on above: Performed By: #### P OCGLUC #### [facility] [address] [place] [address] Dr. Maru Disla Basophils/100 WBC (Bld) 0.2 % Normal 0.2-2.0 [facility] Comment on above: Performed By: #### P OCGLUC #### [facility] [address] [place] [address] Dr. Maru Disla EO # 0.0 103/ul Normal 0.0-0.7 [facility] Comment on above: Performed By: #### P OCGLUC #### [facility] [address] [place] [address] Dr. Maru Disla Eosinophils/100 WBC (Bld) 0.0 % Critically low 0.9-7.0 [facility] Comment on above: Performed By: #### P OCGLUC #### [facility] [address] [place] [address] Dr. Maru Disla Erythrocyte distribution width (RBC) [Ratio] 13.6 % Normal 11.0-15.0 [facility] Comment on above: Performed By: #### P OCGLUC #### [facility] [address] [place] [address] Dr. Maru Disla Hematocrit (Bld) [Volume fraction] 48.1 % Critically high 36.0-48.0 [facility] Comment on above: Performed By: #### P OCGLUC #### [facility] [address] [address] [address] Maru Disla Hemoglobin (Bld) [Mass/Vol] 14.7 g/dL Normal 12.0-16.0 [facility] Comment on above: Performed By: #### P OCGLUC #### [facility] [address] [place] [address] Dr. Maru Disla IG # 0.16 10e3/ul Critically high 0.00-0.03 [facility] Comment on above: Performed By: #### P OCGLUC #### [facility] [address] [place] [address] Dr. Maru Disla IG % 0.6 % Critically high 0.0-0.5 [facility] Comment on above: Performed By: #### P OCGLUC #### [facility] [address] [place] [address] Dr. Maru Disla LYMPH # 1.0 103/ul Critically low 1.2-3.8 [facility] Comment on above: Performed By: #### P OCGLUC #### [facility] [address] [place] [address] Dr. Maru Disla Lymphocytes/100 WBC (Bld) 4.1 % Critically low 20.5-60.0 [facility] Comment on above: Performed By: #### P OCGLUC #### [facility] [address] [place] [address] Dr. Maru Disla MANUAL DIFF REQ NO Normal [facility] Comment on above: Performed By: #### P OCGLUC #### [facility] [address] [place] [address] Dr. Maru Disla MCH (RBC) [Entitic mass] 29.4 pg Normal 26.7-34.0 [facility] Comment on above: Performed By: #### P OCGLUC #### [facility] [address] [place] [address] Dr. Maru Disla MCHC (RBC) [Mass/Vol] 30.6 g/dL Normal 29.9-35.2 [facility] Comment on above: Performed By: #### P OCGLUC #### [facility] [address] [address] [address] Maru Disla MCV (RBC) [Entitic vol] 96.2 fL Normal 81.0-99.0 [facility] Comment on above: Performed By: #### P OCGLUC #### [facility] [address] [address] [address] Maru Disla MONO # 0.8 103/ul Normal 0.3-0.8 [facility] Comment on above: Performed By: #### P OCGLUC #### [facility] [address] [place] [address] Dr. Maru Disla Monocytes/100 WBC (Bld) 3.2 % Normal 1.7-12.0 [facility] Comment on above: Performed By: #### P OCGLUC #### [facility] [address] [place] [address] Dr. Maru Disla NEUT # 23.1 103/ul Critically high 1.4-6.5 [facility] Comment on above: Performed By: #### P OCGLUC #### [facility] [address] [place] [address] Dr. Maru Disla Neutrophils/100 WBC (Bld) 91.9 % Critically high 43.0-75.0 [facility] Comment on above: Performed By: #### P OCGLUC #### [facility] [address] [place] [address] Dr. Maru Disla Platelet mean volume (Bld) [Entitic vol] 10.5 fL Normal 9.5-13.5 [facility] Comment on above: Performed By: #### P OCGLUC #### [facility] [address] [place] [address] Dr. Maru Disla PLT 300 103/ul Normal 150-450 [facility] Comment on above: Performed By: #### P OCGLUC #### [facility] [address] [place] [address] Dr. Mrau Disla RBC 5.00 106/ul Normal 4.20-5.40 [facility] Comment on above: Performed By: #### P OCGLUC #### [facility] [address] [address] [address] Maru Disla WBC 25.1 103/ul Critically high 4.0-11.0 [facility] Comment on above: Performed By: #### P OCGLUC #### [facility] [address] [address] [address] Maru [employer] POINT OF CARE GLUCOSEon -0 Glucose [Mass/Vol] 247 mg/dL Critically high 74-106 [facility] Comment on above: Performed By: #### B MP #### [facility] [address] [place] [address] Dr. Maru Disla Glucose [Mass/Vol] 182 mg/dL Critically high 74-106 [facility] Comment on above: Performed By: #### A BG #### [facility] [address] [place] [address] Dr. Maru Disla Glucose [Mass/Vol] 177 mg/dL Critically high 74-106 [facility] Comment on above: Performed By: #### P OCGLUC #### [facility] [address] [place] [address] Dr. Maru Disla Glucose [Mass/Vol] 191 mg/dL Critically high 74-106 [facility] Comment on above: Performed By: #### P OCGLUC #### [facility] [address] [place] [address] Dr. Maru Disla PROF CHEM 8 (BAS METB)on Anion gap [Moles/Vol] 11.4 mmol/L Normal [facility] Comment on above: Performed By: #### M ALBR #### [facility] [address] [place] [address] Dr. Maru Disla Calcium [Mass/Vol] 8.9 mg/dL Normal 8.5-10.1 [facility] Comment on above: Performed By: #### M ALBR #### [facility] [address] [address] [address] Maru Disla Chloride [Moles/Vol] 108 mmol/L Critically high 98-107 [facility] Comment on above: Performed By: #### M ALBR #### [facility] [address] [place] [address] Dr. Maru Disla CO2 [Moles/Vol] 27.9 mmol/L Normal 21.0-32.0 [facility] Comment on above: Performed By: #### M ALBR #### [facility] [address] [place] [address] Dr. Maru Disla Creatinine [Mass/Vol] 0.84 mg/dL Normal 0.55-1.02 [facility] Comment on above: Performed By: #### M ALBR #### [facility] [address] [place] [address] Dr. Maru Disla EGFR-AF SUDANESE >60 Normal >=60 [facility] Comment on above: Performed By: #### M ALBR #### [facility] [address] [place] [address] Dr. Maru Disla EGFR-NON AF SUDANESE >60 Normal >=60 [facility] Comment on above: Performed By: #### M ALBR #### [facility] [address] [place] [address] Dr. Maru Disla Glucose [Mass/Vol] 202 mg/dL Critically high 74-106 [facility] Comment on above: Performed By: #### M ALBR #### [facility] [address] [place] [address] Dr. Maru Disla Potassium [Moles/Vol] 4.3 mmol/L Normal 3.5-5.1 [facility] Comment on above: Performed By: #### M ALBR #### [facility] [address] [place] [address] Dr. Maru Disla Sodium [Moles/Vol] 143 mmol/L Normal 136-145 [facility] Comment on above: Performed By: #### M ALBR #### [facility] [address] [place] [address] Dr. Maru Disla Urea nitrogen [Mass/Vol] 26.0 mg/dL Critically high 7.0-18.0 [facility] Comment on above: Performed By: #### M ALBR #### [facility] [address] [place] [address] Dr. Maru Disla Urea nitrogen/Creatinine [Mass ratio] 31.0 mg/mg Normal [facility] Comment on above: Performed By: #### M ALBR #### [facility] [address] [place] [address] Dr. Maru Disla CBC AUTO DIFFon 04-06-2022 BASO # 0.0 103/ul Normal 0.0-0.1 [facility] Comment on above: Performed By: #### B MP #### [facility] [address] [place] [address] Dr. Maru Disla Basophils/100 WBC (Bld) 0.1 % Critically low 0.2-2.0 [facility] Comment on above: Performed By: #### B MP #### [facility] [address] [place] [address] Dr. Maru Disla EO # 0.0 103/ul Normal 0.0-0.7 [facility] Comment on above: Performed By: #### B MP #### [facility] [address] [place] [address] Dr. Maru Disla Eosinophils/100 WBC (Bld) 0.1 % Critically low 0.9-7.0 [facility] Comment on above: Performed By: #### B MP #### [facility] [address] [place] [address] Dr. Maru Disla Erythrocyte distribution width (RBC) [Ratio] 13.4 % Normal 11.0-15.0 [facility] Comment on above: Performed By: #### B MP #### [facility] [address] [place] [address] Dr. Maru Disla Hematocrit (Bld) [Volume fraction] 48.5 % Critically high 36.0-48.0 [facility] Comment on above: Performed By: #### B MP #### [facility] [address] [place] [address] Dr. Maru Disla Hemoglobin (Bld) [Mass/Vol] 15.5 g/dL Normal 12.0-16.0 [facility] Comment on above: Performed By: #### B MP #### [facility] [address] [place] [address] Dr. Maru Disla IG # 0.09 10e3/ul Critically high 0.00-0.03 [facility] Comment on above: Performed By: #### B MP #### [facility] [address] [place] [address] Dr. Maru Disla IG % 0.5 % Normal 0.0-0.5 [facility] Comment on above: Performed By: #### B MP #### [facility] [address] [place] [address] Dr. Maru Disla LYMPH # 0.9 103/ul Critically low 1.2-3.8 [facility] Comment on above: Performed By: #### B MP #### [facility] [address] [place] [address] Dr. Maru Disla Lymphocytes/100 WBC (Bld) 4.5 % Critically low 20.5-60.0 [facility] Comment on above: Performed By: #### B MP #### [facility] [address] [place] [address] Dr. Maru Disla MANUAL DIFF REQ NO Normal [facility] Comment on above: Performed By: #### B MP #### [facility] [address] [place] [address] Dr. Maru Disla MCH (RBC) [Entitic mass] 30.0 pg Normal 26.7-34.0 [facility] Comment on above: Performed By: #### B MP #### [facility] [address] [place] [address] Dr. Maru Disla MCHC (RBC) [Mass/Vol] 32.0 g/dL Normal 29.9-35.2 [facility] Comment on above: Performed By: #### B MP #### [facility] [address] [place] [address] Dr. Maru Disla MCV (RBC) [Entitic vol] 93.8 fL Normal 81.0-99.0 [facility] Comment on above: Performed By: #### B MP #### [facility] [address] [place] [address] Dr. Maru Disla MONO # 0.7 103/ul Normal 0.3-0.8 [facility] Comment on above: Performed By: #### B MP #### [facility] [address] [place] [address] Dr. Maru Disla Monocytes/100 WBC (Bld) 3.5 % Normal 1.7-12.0 [facility] Comment on above: Performed By: #### B MP #### [facility] [address] [place] [address] Dr. Maru Disla NEUT # 18.2 103/ul Critically high 1.4-6.5 [facility] Comment on above: Performed By: #### B MP #### [facility] [address] [place] [address] Dr. Maru Disla Neutrophils/100 WBC (Bld) 91.3 % Critically high 43.0-75.0 [facility] Comment on above: Performed By: #### B MP #### [facility] [address] [place] [address] Dr. Maru Disla Platelet mean volume (Bld) [Entitic vol] 11.2 fL Normal 9.5-13.5 [facility] Comment on above: Performed By: #### B MP #### [facility] [address] [place] [address] Dr. Maru Disla PLT 232 103/ul Normal 150-450 [facility] Comment on above: Performed By: #### B MP #### [facility] [address] [place] [address] Dr. Maru Disla RBC 5.17 106/ul Normal 4.20-5.40 [facility] Comment on above: Performed By: #### B MP #### [facility] [address] [place] [address] Dr. Maru Disla WBC 19.9 103/ul Critically high 4.0-11.0 [facility] Comment on above: Performed By: #### B MP #### [facility] [address] [address] [address] Maru Disla POINT OF CARE GLUCOSEon 11-0 Glucose [Mass/Vol] 199 mg/dL Critically high [facility]106 [facility] Comment on above: Performed By: #### P OCGLUC #### [facility] [address] [address] [address] Maru Disla Glucose [Mass/Vol] 109 mg/dL Critically high -106 [facility] Comment on above: Performed By: #### A BG #### [facility] [address] [address] [address] Maru Disla Glucose [Mass/Vol] 253 mg/dL Critically high [facility]106 [facility] Comment on above: Performed By: #### P OCGLUC #### [facility] [address] [address] [address] Maru Disla Glucose [Mass/Vol] 194 mg/dL Critically high [facility]106 [facility] Comment on above: Performed By: #### B MP #### [facility] [address] [address] [address] Maru Disla PROF CHEM 8 (BAS METB)on Anion gap [Moles/Vol] 11.2 mmol/L Normal [facility] Comment on above: Performed By: #### B MP #### [facility] [address] [place] [address] Dr. Maru Disla Calcium [Mass/Vol] 8.8 mg/dL Normal 8.5-10.1 [facility] Comment on above: Performed By: #### B MP #### [facility] [address] [address] [address] Maru Disla Chloride [Moles/Vol] 105 mmol/L Normal 98-107 [facility] Comment on above: Performed By: #### B MP #### [facility] [address] [place] [address] Dr. Maru Disla CO2 [Moles/Vol] 26.8 mmol/L Normal 21.0-32.0 [facility] Comment on above: Performed By: #### B MP #### [facility] [address] [address] [address] Maru Disla Creatinine [Mass/Vol] 0.66 mg/dL Normal 0.55-1.02 [facility] Comment on above: Performed By: #### B MP #### [facility] [address] [address] [address] Maru Disla EGFR-AF SUDANESE >60 Normal >=60 [facility] Comment on above: Performed By: #### B MP #### [facility] [address] [address] [address] Maru Disla EGFR-NON AF SUDANESE >60 Normal >=60 [facility] Comment on above: Performed By: #### B MP #### [facility] [address] [place] [address] Dr. Maru Disla Glucose [Mass/Vol] 191 mg/dL Critically high 74-106 [facility] Comment on above: Performed By: #### B MP #### [facility] [address] [address] [address] Maru Disla Potassium [Moles/Vol] 5.0 mmol/L Normal 3.5-5.1 [facility] Comment on above: Performed By: #### B MP #### [facility] [address] [place] [address] Dr. Maru Disla Sodium [Moles/Vol] 138 mmol/L Normal 136-145 [facility] Comment on above: Performed By: #### B MP #### [facility] [address] [address] [address] Maru Disla Urea nitrogen [Mass/Vol] 21.0 mg/dL Critically high 7.0-18.0 [facility] Comment on above: Performed By: #### B MP #### [facility] [address] [address] [address] Maru Disla Urea nitrogen/Creatinine [Mass ratio] 31.8 mg/mg Normal [facility] Comment on above: Performed By: #### B MP #### [facility] [address] [place] [address] Dr. Maru Disla XR CHEST 2 Von [...] CORINE ANGELA Date: 2022-04-06 07:14 Normal [facility] BLOOD GASES BTYon 04-05-2022 02 MODE NASAL CANNULA Normal [facility] Comment on above: Performed By: #### A BG #### [facility] [address] [place] [address] Dr. Maru Disla ALLENS TEST Positive Normal [facility] Comment on above: Performed By: #### A BG #### [facility] [address] [place] [address] Dr. Maru Disla Base excess Calc (Bld) [Moles/Vol] -1.6000 mmol/L Normal -2.0-2.0 [facility] Comment on above: Performed By: #### A BG #### [facility] [address] [place] [address] Dr. Maru Disla BIPAP PRESSURE Normal [facility] Comment on above: Performed By: #### A BG #### [facility] [address] [place] [address] Dr. Maru Disla CPAP Normal [facility] Comment on above: Performed By: #### A BG #### [facility] [address] [place] [address] Dr. Maru Disla FIO2 Normal [facility] Comment on above: Performed By: #### A BG #### [facility] [address] [place] [address] Dr. Maru Disla HCO3 (Bld) [Moles/Vol] 24.0 mmol/L Normal 22.0-26.0 [facility] Comment on above: Performed By: #### A BG #### [facility] [address] [place] [address] Dr. Maru Disla LPM 2 [facility] Comment on above: Performed By: #### A BG #### [facility] [address] [place] [address] Dr. Maru Disla MINUTE VOLUME Normal [facility] Comment on above: Performed By: #### A BG #### [facility] [address] [place] [address] Dr. Maru Disla Oxygen (Bld) [Partial pressure] 56.1 mm[Hg] Critically low 80.0-100.0 [facility] Comment on above: Performed By: #### A BG #### [facility] [address] [place] [address] Dr. Maru Disla Oxygen saturation in Blood 89.9 % Critically low 95.0-100.0 [facility] Comment on above: Performed By: #### A BG #### [facility] [address] [place] [address] Dr. Maru Disla PCO2 43.3 mmHg Normal 35.0-45.0 [facility] Comment on above: Performed By: #### A BG #### [facility] [address] [place] [address] Dr. Maru Disla PEEP [facility] Comment on above: Performed By: #### A BG #### [facility] [address] [place] [address] Dr. Maru Disla pH (Bld) 7.352 [pH] Normal 7.350-7.450 [facility] Comment on above: Performed By: #### A BG #### [facility] [address] [place] [address] Dr. Maru Disla [facility] Comment on above: Performed By: #### A BG #### [facility] [address] [place] [address] Dr. Maru Disla [facility] Comment on above: Performed By: #### A BG #### [facility] [address] [place] [address] Dr. Maru Disla PUNCTURE SITE LR [facility] Comment on above: Performed By: #### A BG #### [facility] [address] [place] [address] Dr. Maru Disla RATE [facility] Comment on above: Performed By: #### A BG #### [facility] [address] [place] [address] Dr. Maru Disla VENT MODE [facility] Comment on above: Performed By: #### A BG #### [facility] [address] [place] [address] Dr. Maru Disla [facility] Comment on above: Performed By: #### A BG #### [facility] [address] [place] [address] Dr. Maru Disla BNPon 04-05-2022 Natriuretic peptide B (Bld) [Mass/Vol] 471.0 pg/mL Normal <=900.0 [facility] Comment on above: Performed By: #### P OCGLUC #### [facility] [address] [place] [address] Dr. Maru Disla CBC AUTO DIFFon 04-05-2022 BASO # 0.0 103/ul Normal 0.0-0.1 [facility] Comment on above: Performed By: #### B MP #### [facility] [address] [place] [address] Dr. Maru Disla Basophils/100 WBC (Bld) 0.3 % Normal 0.2-2.0 [facility] Comment on above: Performed By: #### B MP #### [facility] [address] [place] [address] Dr. Maru Disla EO # 0.0 103/ul Normal 0.0-0.7 [facility] Comment on above: Performed By: #### B MP #### [facility] [address] [place] [address] Dr. Maru Disla Eosinophils/100 WBC (Bld) 0.0 % Critically low 0.9-7.0 [facility] Comment on above: Performed By: #### B MP #### [facility] [address] [place] [address] Dr. Maru Disla Erythrocyte distribution width (RBC) [Ratio] 13.2 % Normal 11.0-15.0 [facility] Comment on above: Performed By: #### B MP #### [facility] [address] [place] [address] Dr. Maru Disla Hematocrit (Bld) [Volume fraction] 52.3 % Critically high 36.0-48.0 [facility] Comment on above: Performed By: #### B MP #### [facility] [address] [place] [address] Dr. Maru Disla Hemoglobin (Bld) [Mass/Vol] 16.6 g/dL Critically high 12.0-16.0 [facility] Comment on above: Performed By: #### B MP #### [facility] [address] [place] [address] Dr. Maru Disla IG # 0.05 10e3/ul Critically high 0.00-0.03 [facility] Comment on above: Performed By: #### B MP #### [facility] [address] [place] [address] Dr. Maru Disla IG % 0.4 % Normal 0.0-0.5 [facility] Comment on above: Performed By: #### B MP #### [facility] [address] [place] [address] Dr. Maru Disla LYMPH # 1.5 103/ul Normal 1.2-3.8 [facility] Comment on above: Performed By: #### B MP #### [facility] [address] [place] [address] Dr. Maru Disla Lymphocytes/100 WBC (Bld) 10.7 % Critically low 20.5-60.0 [facility] Comment on above: Performed By: #### B MP #### [facility] [address] [place] [address] Dr. Maru Disal MANUAL DIFF REQ NO Normal [facility] Comment on above: Performed By: #### B MP #### [facility] [address] [place] [address] Dr. Maru Disla MCH (RBC) [Entitic mass] 29.7 pg Normal 26.7-34.0 [facility] Comment on above: Performed By: #### B MP #### [facility] [address] [place] [address] Dr. Maru Disla MCHC (RBC) [Mass/Vol] 31.7 g/dL Normal 29.9-35.2 [facility] Comment on above: Performed By: #### B MP #### [facility] [address] [place] [address] Dr. Maru Disla MCV (RBC) [Entitic vol] 93.6 fL Normal 81.0-99.0 [facility] Comment on above: Performed By: #### B MP #### [facility] [address] [place] [address] Dr. Maru Disla MONO # 1.5 103/ul Critically high 0.3-0.8 [facility] Comment on above: Performed By: #### B MP #### [facility] [address] [place] [address] Dr. Maru Disla Monocytes/100 WBC (Bld) 11.0 % Normal 1.7-12.0 [facility] Comment on above: Performed By: #### B MP #### [facility] [address] [place] [address] Dr. Maru Disla NEUT # 10.8 103/ul Critically high 1.4-6.5 [facility] Comment on above: Performed By: #### B MP #### [facility] [address] [place] [address] Dr. Maru Disla Neutrophils/100 WBC (Bld) 77.6 % Critically high 43.0-75.0 [facility] Comment on above: Performed By: #### B MP #### [facility] [address] [place] [address] Dr. Maru Disla Platelet mean volume (Bld) [Entitic vol] 10.1 fL Normal 9.5-13.5 [facility] Comment on above: Performed By: #### B MP #### [facility] [address] [address] [address] Maru Disla PLT 315 103/ul Normal 150-450 [facility] Comment on above: Performed By: #### B MP #### [facility] [address] [id number] Maru Disla RBC 5.59 106/ul Critically high 4.20-5.40 [facility] Comment on above: Performed By: #### B MP #### [facility] [address] [address] [address] Maru Disla WBC 13.9 103/ul Critically high 4.0-11.0 [facility] Comment on above: Performed By: #### B MP #### [facility] [address] [address] [address] Maru Disla CULTURE BLOODon 04-05-2022 Microscopic examination of blood, culture Culture Observations: NO GROWTH AT 5 DAYS. Normal [facility] Comment on above: Performed By: #### B MP #### [facility] [address] [address] [address] Maru Disla [facility]on SARS-CoV-2 (COVID-19) RNA NICOLETTE+probe Ql (Unsp spec) Not detected Normal NOT DETECTED [facility] Comment on above: Result Comment: When [...] for this test is supported by the Anesthesiology Fellow of Health and Human Service's declaration that [...] used). Performed By: #### M ALBR #### [facility] [address] [place] [address] Dr. Maru Disla INFLUENZA A AND B AGon 04-05 INFLUENZA A AG Negative Normal NEGATIVE SEE COMMENT [facility] Comment on above: Performed By: #### P OCGLUC #### [facility] [address] [place] [address] Dr. Maru Disla INFLUENZA B AG Negative Normal NEGATIVE SEE COMMENT [facility] Comment on above: Performed By: #### P OCGLUC #### [facility] [address] [place] [address] Dr. Maru Disla INTERNAL CONTROLS Within Normal Limits Normal Wi thin Normal Limits [facility] Comment on above: Performed By: #### P OCGLUC #### [facility] [address] [place] [address] Dr. Maru Disla LACTATE/LACTIC ACIDon 2021 Lactate [Moles/Vol] 3.1 mmol/L Critically high 0.4-1.9 [facility] Comment on above: Performed By: #### L ACT #### [facility] [address] [place] [address] Dr. Maru Disla Lactate [Moles/Vol] 3.1 mmol/L Critically high 0.4-1.9 [facility] Comment on above: Performed By: #### B MP #### [facility] [address] [place] [address] Dr. Maru Disla POINT OF CARE GLUCOSEon Glucose [Mass/Vol] 290 mg/dL Critically high 74-106 [facility] Comment on above: Performed By: #### M ALBR #### [facility] [address] [place] [address] Dr. Maru Disla Glucose [Mass/Vol] 309 mg/dL Critically high 74-106 [facility] Comment on above: Performed By: #### A BG #### [facility] [address] [address] [address] Maru Disla Glucose [Mass/Vol] 289 mg/dL Critically high 74-106 [facility] Comment on above: Performed By: #### P OCGLUC #### [facility] [address] [place] [address] Dr. Maru Disla Glucose [Mass/Vol] 325 mg/dL Critically high 74-106 [facility] Comment on above: Performed By: #### M ALBR #### [facility] [address] [place] [address] Dr. Maru Disla PROF 14(COMP METB)on 022 Albumin [Mass/Vol] 3.3 g/dL Critically low 3.4-5.0 [facility] Comment on above: Performed By: #### P OCGLUC #### [facility] [address] [place] [address] Dr. Maru Disla Albumin/Globulin [Mass ratio] 0.7 {ratio} Normal [facility] Comment on above: Performed By: #### P OCGLUC #### [facility] [address] [place] [address] Dr. Maru Disla ALP [Catalytic activity/Vol] 105 U/L Normal 46-116 [facility] Comment on above: Performed By: #### P OCGLUC #### [facility] [address] [place] [address] Dr. Maru Disla ALT [Catalytic activity/Vol] 15 U/L Normal 14-59 [facility] Comment on above: Performed By: #### P OCGLUC #### [facility] [address] [place] [address] Dr. Maru Disla Anion gap [Moles/Vol] 13.2 mmol/L Normal [facility] Comment on above: Performed By: #### P OCGLUC #### [facility] [address] [place] [address] Dr. Maru Disla AST [Catalytic activity/Vol] 12 U/L Critically low 15-37 [facility] Comment on above: Performed By: #### P OCGLUC #### [facility] [address] [place] [address] Dr. Maru Disla Bilirubin [Mass/Vol] 0.4 mg/dL Normal 0.2-1.0 [facility] Comment on above: Performed By: #### P OCGLUC #### [facility] [address] [address] [address] Maru Disla Calcium [Mass/Vol] 8.8 mg/dL Normal 8.5-10.1 [facility] Comment on above: Performed By: #### P OCGLUC #### [facility] [address] [address] [address] Maru Disla Chloride [Moles/Vol] 101 mmol/L Normal 98-107 [facility] Comment on above: Performed By: #### P OCGLUC #### [facility] [address] [address] [address] Maru Disla CO2 [Moles/Vol] 26.0 mmol/L Normal 21.0-32.0 [facility] Comment on above: Performed By: #### P OCGLUC #### [facility] [address] [address] [address] Maru Disla Creatinine [Mass/Vol] 1.03 mg/dL Critically high 0.55-1.02 [facility] Comment on above: Performed By: #### P OCGLUC #### [facility] [address] [address] [address] Maru Disla EGFR-AF SUDANESE >60 Normal >=60 [facility] Comment on above: Performed By: #### P OCGLUC #### [facility] [address] [address] [address] Maru Disla EGFR-NON AF SUDANESE 54 mL/min/1.73m2 Critically low >=60 [facility] Comment on above: Performed By: #### P OCGLUC #### [facility] [address] [address] [address] Maru Disla Globulin (S) [Mass/Vol] 4.5 g/dL Normal [facility] Comment on above: Performed By: #### P OCGLUC #### [facility] [address] [address] [address] Maru Disla Glucose [Mass/Vol] 264 mg/dL Critically high 74-106 [facility] Comment on above: Performed By: #### P OCGLUC #### [facility] [address] [address] [address] Maru Disla Potassium [Moles/Vol] 4.2 mmol/L Normal 3.5-5.1 [facility] Comment on above: Performed By: #### P OCGLUC #### [facility] [address] [address] [address] Maru Disla Protein [Mass/Vol] 7.8 g/dL Normal 6.4-8.2 [facility] Comment on above: Performed By: #### P OCGLUC #### [facility] [address] [place] [address] Dr. Maru Disla Sodium [Moles/Vol] 136 mmol/L Normal 136-145 [facility] Comment on above: Performed By: #### P OCGLUC #### [facility] [address] [place] [address] Dr. Maru Disla Urea nitrogen [Mass/Vol] 14.0 mg/dL Normal 7.0-18.0 [facility] Comment on above: Performed By: #### P OCGLUC #### [facility] [address] [place] [address] Dr. Maru Disla Urea nitrogen/Creatinine [Mass ratio] 13.6 mg/mg Normal [facility] Comment on above: Performed By: #### P OCGLUC #### [facility] [address] [place] [address] Dr. Maru Disla TROPONIN, HIGH SENSITIVITYon 04-05-2022 HSTROP 10.5 pg/mL Normal 4.0-51.3 [facility] Comment on above: Result Comment: CUT- OFF POINTS HAVE BEEN ESTABLISHED BASED ON THE FOURTH UNIVERSAL DEFINITIONS OF MYOCARDIAL INFARCTION. THE UPPER REFERENCE LIMIT (URL) OF TROPONIN, DEFINED THE 99TH PERCENTILE OF cTnI DISTRIBUTION IN A REFERENCE POPULATION, HAS BEEN CONFIRMED THE DECISION THRESHOLD FOR UT DIAGNOSIS. Performed By: #### A BG #### [facility] [address] [place] [address] Dr. Maru Disla XR CHEST 1 Von [...] by: YECENIA MONTERO Date: 2022-04-05 06:51 Normal [facility] Vital Signs Date Time Vital Sign Value Performing Clinician Faci lity 07-18-2023 14:27-0500 Body height 167.6 cm Mairasunny Rush INTERNET SECURITY SPECIALIST Work Phone: [facility] 07-18-2023 14:27-0500 Body mass index (BMI) [Ratio] 38.29 kg/m2 Mairasunny Rush INTERNET SECURITY SPECIALIST Work Phone: [facility] 07-18-2023 14:27-0500 Body temperature 98.01 [degF] Mairasunny Rush INTERNET SECURITY SPECIALIST Work Phone: [facility] 07-18-2023 14:27-0500 Body weight 107.59 kg Maira Victor Manuel INTERNET SECURITY SPECIALIST Work Phone: [facility] 07-18-2023 14:27-0500 Diastolic blood pressure 78 mm[Hg] Mairasunny Rush INTERNET SECURITY SPECIALIST Work Phone: [facility] 07-18-2023 14:27-0500 Heart rate 79 /min Maira Victor Manuel INTERNET SECURITY SPECIALIST Work Phone: [facility] 07-18-2023 14:27-0500 Respiratory rate 19 /min Maira Victor Manuel INTERNET SECURITY SPECIALIST Work Phone: [facility] 07-18-2023 14:27-0500 SaO2% (BldA) [Mass fraction] 97 % Maira Rush INTERNET SECURITY SPECIALIST Work Phone: [facility] 07-18-2023 14:27-0500 Systolic blood pressure 142 mm[Hg] Mairasunny Rush INTERNET SECURITY SPECIALIST Work Phone: [facility] Encounters Encounter Date Encounter Type Care Provider Facility Start: 02-17-2024 End: 02-17-2024 ambulatory MAIRA AICHHOLZ Not Available Start: 01-23-2024 End: 01-23-2024 ambulatory CHAPITO DAMICO [facility] Start: 01-16-2024 End: 01-22-2024 ambulatory YVES GIL [facility] Start: 01-16-2024 End: 01-22-2024 Emergency department patient visit CHIKI TERRY [facility] Start: 01-16-2024 End: 01-22-2024 [facility] Start: 11-19-2023 End: 11-19-2023 ambulatory MAIRA AICHHOLZ Not Available Start: 10-16-2023 End: 10-16-2023 ambulatory MAIRA AICHHOLZ Not Available Start: 07-18-2023 End: 07-18-2023 Office outpatient visit 25 minutes Maira Victor Manuel INTERNET SECURITY SPECIALIST Work Phone: [facility] Comment on above: Primary hypertension (CMS/[facility]) (Primary Dx); Type 2 diabetes mellitus with diabetic neuropathy, with long-term current use of insulin (CMS/[facility]); Gastroesophageal reflux disease, unspecified whether esophagitis present; Vitamin D deficiency; Type 2 diabetes mellitus with complication, without long-term current use of insulin (CMS/[facility]); Mixed hyperlipidemia (CMS/[facility]); Encounter for screening mammogram for malignant neoplasm of breast; SANTO (obstructive sleep apnea); COPD mixed type (CMS/HCC); Anxiety and depression (CMS/HCC); COVID; Open wound; Morbid obesity with body mass index (BMI) of 40.0 to 49.9 ([facility]/HCC) Start: 07-18-2023 End: 07-18-2023 ambulatory MAIRA AICHHOLZ Not Available Start: 07-18-2023 Bamboo flowsheet Maira Aichholz INTERNET SECURITY SPECIALIST Work Phone: [facility] Start: 07-18-2023 Bamboo flowsheet Maira Aichholz INTERNET SECURITY SPECIALIST Work Phone: [facility] Start: 01-08-2023 End: 01-08-2023 ambulatory [facility] Start: 10-02-2022 End: 10-03-2022 ambulatory MANAGER ADVERTISING MAIRA DOMENICOMelindaBESSY Facility:[facility]1 Start: 08-09-2022 End: 08-10-2022 ambulatory DMITRY RUSH Facility:[facility] Start: 07-12-2022 ambulatory [facility] Start: 06-21-2022 End: 06-22-[address] CORINE ANGELA Facility:[facility] Start: 06-20-2022 End: 06-21-2022 ambulatory DMITRY RUSH Facility:[facility] Start: 06-07-2022 End: 06-07-2022 ambulatory Patrick Hart Facility:[facility] Start: 04-05-2022 End: 04-09-2022 Evaluation and management of inpatient DR TERI BLOCK . Facility:[facility] Start: 11-23-2021 End: 11-23-2021 ambulatory MANAGER ADVERTISING MAIRA ACUÑAMelindaBESSY Facility:[facility] Start: 09-30-2018 End: 10-01-2018 Patient encounter procedure DEFAULT PHYSICIAN Facility:[facility] Start: 09-15-2018 End: 09-16-2018 Patient encounter procedure DEFAULT PHYSICIAN Facility:[facility] Procedures Date Procedure Procedure Detail Performing Clinician Start: 06-19-2022 Mammography Maira santiago INTERNET SECURITY SPECIALIST Work Phone: Start: 02-14-2015 Colonoscopy Maira santiago INTERNET SECURITY SPECIALIST Work Phone: Plan of Treatment Date Care Activity Detail Author Start: 02-14-2025 Screening for malign ant neoplasm of colon [facility] Start: 10-16-2023 End: 10-16-2023 Patient encounter procedure 10/16/2023 9:20 AM EDT Office Visit [facility] [address] [place] [id number] Maira Rush NP [address] [place] [id number] [facility] Start: 08-16-2023 End: 09-15-2024 MG Breast - bilateral Screening Bilateral screening mammogram Imaging Routine Encounter for screening mammogram for malignant neoplasm of breast Expected: 08/16/2023 (Approximate), Expires: 09/15/2024 [facility] Comment on above: Expected: 08/16/2023 (Approximate), Expires: 09/15/2024 Start: 08-10-2023 Urine screening for protein Diabetes: Urine Protein Screening [facility] Start: 07-18-2023 End: 07-18-2023 Patient encounter procedure 07/18/2023 2:20 PM EST Office Visit [facility] [address] [place] [address] Maira Rush NP [address] [place] [address] Type 2 diabetes mellitus with diabetic neuropathy, with long-term current use of insulin (CMS/HCC) (Primary Dx); Primary hypertension (CMS/HCC); Gastroesophageal reflux disease, unspecified whether esophagitis present; Vitamin D deficiency; Type 2 diabetes mellitus with complication, without long-term current use of insulin (CMS/HCC); Mixed hyperlipidemia (CMS/HCC); Encounter for screening mammogram for malignant neoplasm of breast [facility] Comment on above: Type 2 diabetes gayatri [...] D deficiency Expected: 07/18/2023 (Approximate), Expires: 07/18/2024 [facility] Comment on above: Expected: 07/18/2023 (Approximate), Expires: 07/18/2024 Start: 07-18-2023 End: 07-18-2024 CBC W Auto Differential panel - Blood CBC and differential Lab Routine Gastroesophageal reflux disease, unspecified whether esophagitis present Expected: 07/18/2023 (Approximate), Expires: 07/18/2024 [facility] Work Phone: Comment on above: Expected: 07/18/2023 (Approximate), Expires: 07/18/2024 Start: 07-18-2023 End: 07-18-2024 Comprehensive metabolic 2000 panel - Serum or Plasma Comprehensive metabolic panel Lab Routine Primary hypertension ([facility]/HCC) Type 2 diabetes mellitus with complication, without long-term current use of insulin (CMS/[facility]) Mixed hyperlipidemia (CMS/HCC) Expected: 07/18/2023 (Approximate), Expires: 07/18/2024 [facility] Comment on above: Expected: 07/18/2023 (Approximate), Expires: 07/18/2024 Start: 07-18-2023 End: 07-18-2024 Hemoglobin A1c/Hemoglobin.total in Blood Hemoglobin A1c Lab Routine Type 2 diabetes mellitus with complication, without long-term current use of insulin (CMS/HCC) Expected: 07/18/2023 (Approximate), Expires: 07/18/2024 [facility] Comment on above: Expected: 07/18/2023 (Approximate), Expires: 07/18/2024 Start: 07-18-2023 End: 07-18-2024 Lipid 1996 panel - Serum or Plasma Lipid panel Lab Routine Mixed hyperlipidemia ([facility]/HCC) Expected: 07/18/2023 (Approximate), Expires: 07/18/2024 [facility] Comment on above: Expected: 07/18/2023 (Approximate), Expires: 07/18/2024 Start: 07-18-2023 End: 07-18-2024 Microalbumin/Creatinine panel in random Urine Microalbumin / creatinine, urine ratio Lab Routine Type 2 diabetes mellitus with complication, without long-term current use of insulin ([facility]/HCC) Expected: 07/18/2023 (Approximate), Expires: 07/18/2024 [facility] Comment on above: Expected: 07/18/2023 (Approximate), Expires: 07/18/2024 Start: 07-18-2023 End: 07-18-2024 Urinalysis complete panel - Urine Urinalysis with reflex microscopic (clean catch) Lab Routine Type 2 diabetes mellitus with complication, without long-term current use of insulin ([facility]) Expected: 07/18/2023 (Approximate), Expires: 07/18/2024 [facility] Comment on above: Expected: 07/18/2023 (Approximate), Expires: 07/18/2024 Start: 06-19-2023 Screening for malign ant neoplasm of breast Mammogram [facility] Start: 02-01-2023 Influenza vaccination Influenza Vacc ine (#1) [facility] Start: 01-07-2019 Hemoglobin A1c measurement Diabetes: Hemoglobin A1C [facility] Start: 1989 Screening for malign ant neoplasm of cervix [facility] Start: 1980 Screening for malign ant neoplasm of cervix Pap Smear [facility] Start: 1969 Glaucoma screening Diabetes: R etinopathy Screening [facility] Start: 1959 Screening for malign ant neoplasm of colon [facility] Immunizations Immunization Date Immunization Notes Care Provider Afia arce 04-05-2022 influenza, injectabl e, quadrivalent, preservative free Maira Aichholz INTERNET SECURITY SPECIALIST Work Phone: [facility] 04-05-2022 pneumococcal polysaccharide vaccine, 23 valent Maira Aichholz INTERNET SECURITY SPECIALIST Work Phone: [facility] 04-05-2022 influenza virus vacc ine, unspecified formulation Maira Aichholz INTERNET SECURITY SPECIALIST Work Phone: [facility] 11-23-2021 diphtheria, tetanus toxoids and pertussis vaccine Maira Aichholz INTERNET SECURITY SPECIALIST Work Phone: [facility] 03-24-2020 tetanus toxoid, redu joaquin diphtheria toxoid, and acellular pertussis vaccine, adsorbed Maira Aichholz INTERNET SECURITY SPECIALIST Work Phone: [facility] 03-25-2017 Influenza, injectabl e, Madin Arline Canine Kidney, preservative free, quadrivalent Maira Aichholz INTERNET SECURITY SPECIALIST Work Phone: [facility] Payers Date Payer Category Payer Medicaid [employer] [place] [employer] [id number] 2017-Present [address] [place] [address] [id number] 1959 Unknown [id number] 1959 Unknown [id number] [id number]7 1959 Unknown [id number] 2.16.840.1.726180.3.579.2.593 1959 Unknown [id number] 2.16.840.1.189448.3.579.2.593 1959 Unknown [id number] 2.16.840.1.622135.3.579.2.593 1959 Unknown [id number] 2.16.840.1.205703.3.579.2.593 1959 Unknown [id number] 2.16.840.1.948899.3.579.2.593 1959 Unknown [id number] 2.16.840.1.347898.3.579.2.593 1959 Unknown [id number] 2.16.840.1.938147.3.579.2.593 1959 Unknown [id number] 2.16.840.1.798970.3.579.2.1286 1959 Unknown [id number] 2.16.840.1.688412.3.579.2.1286 1959 Unknown [id number] 2.16.840.1.010440.3.579.2.1286 1959 Unknown [id number] 2.16.840.1.461239.3.579.2.1286 1959 Unknown [id number] 2.16.840.1.964121.3.579.2.1286 1959 Unknown [id number] 2.16.840.1.905278.3.579.2.1259 1959 Unknown [id number] 2.16.840.1.048906.3.579.2.9 1959 Unknown [id number] 2.16.840.1.574617.3.579.2.1259 1959 Unknown [id number] 2.16.840.1.383678.3.579.2.1259 1959 Unknown [id number] Unknown Social History Date Type Detail Facility Start: 07-15-2023 Tobacco smoking status ALIS Ex-smoke r [facility] Start: 06-03-1982 End: 04-03-2022 History of tobacco use Current smoker [facility] Start: 06-03-1982 End: 04-03-2022 History of tobacco use Cigarette Smoker [facility] Start: 07-15-2023 End: 07-18-2023 Cigarettes smoked current (pack per day) - Reported 0.5 [facility] Start: 07-18-2023 Alcohol intake Ex-drinker (finding) [facility] Start: 06-29-2023 End: 07-18-2023 Tobacco use panel [facility] Start: 07-15-2023 Alcohol Comment coffee 1-2 cups per day [facility] Start: 1960 Sex Assigned At Not on file [place] [facility] Medical Equipment Procedure Code Equipment Code Equipment Origin al Text Equipment Identifier Dates Inject 1 each un stveen the skin if needed [id number] Start: 06-24-2023 Clinical Note 01-16-2024 Note Date & Type Note Facility 01-16-2024 Note XR CHEST 1 VW Procedure: Chest x-ray performed Number of views:1 History:Cough Comparison:07/13/2022 Impression: 1. There is patchy airspace disease and effusion in the left lung base. The right lung is clear. There is no pneumothorax. The mediastinal structures are unremarkable. Finalized by Chalo Lang MD on 01/16/2024 8:28 PM [facility] History of Present illness Narrative 07-18-2023 Maira [...] to wear PAP Not wearing risk stroke, UT, Associated Problem(s): Type 2 diabetes mellitus with diabetic neuropathy, with long-term current use of insulin (CMS/HCC) Non compliant with follow up with Endo Explained to her her persistent non compliance will lead to increase risk stroke, UT, blindness, amputation, as well as CKD Instructed [...] 2 puffs, Inhalation, Daily Sure Comfort Pen Emmett 32G X 4 MM misc 1 each, [...] Medical History: Diagnosis Date Anxiety and depression ([facility]) 07/18/2023 Atrial fibrillation ([facility]) 07/18/2023 COPD mixed type ([facility]) 05/23/2023 Drug-induced acute pancreatitis 07/18/2023 Edema of extremities 07/18/2023 GERD (gastroesophageal reflux disease) 07/18/2023 HLD (hyperlipidemia) ([facility]) 07/18/2023 Medical non-compliance 07/18/2023 Morbid obesity with body mass index (BMI) of 40.0 to 49.9 ([facility]) 07/18/2023 Neuropathy, diabetic ([facility]) 07/18/2023 SANTO (obstructive sleep apnea) 07/18/2023 Osteoporosis ([facility]) 07/18/2023 Seasonal allergies 07/18/2023 Tobacco user 07/18/2023 Type 2 diabetes mellitus with complication, without long-term current use of insulin ([facility]) 07/18/2023 Urge and stress incontinence 07/18/2023 Vitamin [...] Items Addressed This Visit COPD mixed type (CMS/HCC) Continues to smoke, refused to quit Cont current meds at this time Primary hypertension ([facility]) stable Relevant Orders Comprehensive metabolic panel Type 2 diabetes mellitus with diabetic neuropathy, with long-term current use of insulin ([facility]) - Primary Non compliant with follow up with Endo Explained to her her persistent non compliance will lead to increase risk stroke, UT, blindness, amputation, as well as CKD Instructed [...] to wear PAP Not wearing risk stroke, UT, GERD (gastroesophageal reflux disease) Relevant Orders CBC and differential Vitamin D deficiency Relevant Orders Vitamin D 25 hydroxy Type 2 diabetes mellitus with complication, without long-term current use of insulin ([facility]/HCC) Relevant Orders Comprehensive metabolic panel Microalbumin / creatinine, urine ratio Urinalysis with reflex microscopic (clean catch) Hemoglobin A1c HLD (hyperlipidemia) (CMS/HCC) Relevant Orders Lipid panel Comprehensive metabolic panel Anxiety and depression (CMS/HCC) Stable at this time Encounter for screening mammogram for malignant neoplasm of breast Relevant Orders Bilateral screening mammogram COVID Recent hospitalization for this, appears to be doing quite well Open wound No s/s infection, recommend using diaper barrier ointment on this documented in this encounter [facility] Progress note 01-08-2023 Note Date & Type [...] All other systems reviewed and are negative. [facility] Progress note 01-08-2023 Note Date & Type Note Facility 01-08-2023 Note Cardiology Clinic No te Subjective Roddydevaughn Dior is a 62 y.o. year old [...] Lexiscan stress test (more content not included)... [facility] Clinical Note 06-07-2022 Note Date & Type [...] authenticated by: PATRICK HART Date: 2022-06-07 08:43 [facility] Evaluation note Note Date & Type Note Facility Evaluation note Diagnosis Primary hypertension ([facility])- Primary Unspecified essential hypertension Type 2 diabetes mellitus with diabetic neuropathy, with long-term current use of insulin ([facility]) Gastroesophageal reflux disease, unspecified whether esophagitis present Vitamin D deficiency Type 2 diabetes mellitus with complication, without long-term current use of insulin ([facility]) Mixed hyperlipidemia ([facility]) Mixed hyperlipidemia Encounter for screening mammogram for malignant neoplasm of breast SANTO (obstructive sleep apnea) Obstructive sleep apnea (adult) (pediatric) COPD mixed type ([facility]/HCC) Anxiety and depression ([facility]) COVID Open wound Open wound(s) (multiple) of unspecified site(s), without mention of complication Morbid obesity with body mass index (BMI) of 40.0 to 49.9 ([facility]) documented in this encounter [facility] [...] section and content) DATE CREATED AUTHOR 10/06/2018 [facility] DATE CREATED AUTHOR AUTHOR'S ORGANIZ ATION 10/09/2022 [facility] DATE CREATED AUTHOR AUTHOR'S ORGANIZ ATION 09/05/2023 [facility] DATE CREATED AUTHOR AUTHOR'S ORGANIZ ATION 01/23/2024 [facility] DATE CREATED AUTHOR AUTHOR'S ORGANIZ ATION 01/25/2024 [facility] DATE CREATED AUTHOR AUTHOR'S ORGANIZ ATION 02/14/2024 [facility] DATE CREATED AUTHOR AUTHOR'S ORGANIZ ATION 02/18/2024 [facility] Care Teams (unrecognized sec tion and content) Trouble Shooting Mechanic Relationship Specialty Start Date End Date Brandon Mcfarlane MD [address] [place] [phone] PCP - General Family Medicine 06/26/23 Maira Rush NP [address] [place] [phone] Referring Physician Nurse Practitioner 12/17/22 Trouble Shooting Mechanic Relationship Specialty Start Date End Date Brandon Mcfarlane MD [address] [place] [phone] PCP - General Family Medicine 06/26/23 Maira Rush NP [address] [place] [phone] Referring Physician Nurse Practitioner 12/17/22 FOR RECORDS [...] BE BASED ON THE PRIMARY CLINICAL RECORDS. [facility]. provides no warranty or guarantee of the accuracy or completeness of information in this document.
[2024-02-24] MEDS: MECLIZINE HCL 12.5 MG TABLET 25 MG PO (14:02)
[2024-02-24] MEDS: 0.9 % SODIUM CHLORIDE 500 ML IV (14:03)
[2024-02-24 14:06] LABS: Alanine Aminotransferase 16 U/L (14-59); Albumin Globulin Ratio 0.9; Albumin Level 3.3 g/dL (3.4-5.0); Alkaline Phosphatase 91 U/L (46-116); Anion Gap 7.4; Aspartate Amino Transferase 15 U/L (15-37); BUN Creatinine Ratio 11.7; Bilirubin Total 0.5 mg/dL (0.2-1.0); Calcium 9.2 mg/dL (8.5-10.1); Carbon Dioxide 32.4 mmol/L (21.0-32.0); Chloride 98 mmol/L (98-107); Estimated GFR (African America >60 (>=60); Estimated GFR (Non-African Ame >60 (>=60); Globulin 3.6 g/dL; Glucose 252 mg/dL (74-106); Potassium 3.8 mmol/L (3.5-5.1); Sodium 134 mmol/L (136-145); Total Protein 6.9 g/dL (6.4-8.2)
[2024-02-24 14:11] LABS: Basophils Percent Auto 0.3 % (0.2-2.0); Eosinophils Absolute Auto 0.2 10^3/uL (0.0-0.7); Eosinophils Percent Auto 1.9 % (0.9-7.0); Hematocrit 50.1 % (36.0-48.0); Hemoglobin 16.6 g/dL (12.0-16.0); Immature Granulocytes Abs Auto 0.02 10^3/uL (0.00-0.03); Immature Granulocytes Pct Auto 0.2 % (0.0-0.5); Lymphocytes Absolute Auto 3.2 10^3/uL (1.2-3.8); Lymphocytes Percent Auto 35.9 % (20.5-60.0); Mean Corpuscular HGB Conc 33.1 g/dL (29.9-35.2); Mean Corpuscular Hemoglobin 31.3 pg (26.7-34.0); Mean Corpuscular Volume 94.5 fL (81.0-99.0); Mean Platelet Volume 11.3 fL (9.5-13.5); Monocytes Absolute Auto 0.6 10^3/uL (0.3-0.8); Monocytes Percent Auto 7.2 % (1.7-12.0); Neutrophils Absolute Auto 4.9 10^3/uL (1.4-6.5); Neutrophils Percent Auto 54.5 % (43.0-75.0); Platelet Count 249 10^3/uL (150-450); Red Cell Distribution Width 13.1 % (11.0-15.0); White Blood Count 8.9 10^3/uL (4.0-11.0)
[2024-02-24 14:31] LABS: Bilirubin Urine NEGATIVE (NEGATIVE); Blood Urine TRACE-I (NEGATIVE); Clarity Urine CLEAR (CLEAR); Color Urine LT. YELLOW (YELLOW); Glucose Urine UA >=1000 mg/dL (NEGATIVE); Ketones Urine NEGATIVE (NEGATIVE); Leukocyte Esterase Urine NEGATIVE (NEGATIVE); Nitrite Urine NEGATIVE (NEGATIVE); Protein Urine NEGATIVE (NEG/TRACE); Specific Gravity Urine <=1.005 (1.005-1.025); Urobilinogen Urine 0.2 EU/dL (0.2-1.0)
[2024-02-24 15:00] LABS: Urine Microscopic Indicated YES
[2024-02-24 15:09] LABS: Bacteria Urine SMALL #/HPF (NONE SEEN); Crystals Seen? Seen #/HPF (None Seen); Mucus Urine TRACE (NONE SEEN); Squamous Epithelial Cell Urine FEW #/LPF (NONE/RARE)
[2024-02-24 15:10] LABS: Amorphous Sediment Urine RARE; Cast Seen? NONE SEEN #/LPF (NONE SEEN); Urine Culture Indicated YES
--- NOTE | 2024-02-24 15:12 | PC.NURSE ---
PT STATES SHE FEELS MUCH BETTER NOW AND IS NOT DIZZY
== END 2024-02-24 16:02 | disposition home or self-care (01) ==
PROVIDERS: Nurse Practitioner Family; Emergency Provider Emergency Medicine; PCP Nurse Practitioner
DX: R42 Dizziness and giddiness (principal); F17.200 Nicotine dependence, unspecified, uncomplicated
CPT/HCPCS: 36415; 80053; 81001; 85025; 87086; 93005; 99285

== ENCOUNTER 2024-04-09 07:29 | Outpatient (OUT) | payer OTHER, SELFPAY ==
--- OUTSIDE RECORDS SUMMARY | 2024-04-09 07:33 | XMS_ITS | CCD ---
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 Onset: 06-07-2022 Episodic Other screening for suspected conditions (not mental disorders or infectious disease) (16 sources) Encounter for screening mammogram for malignant neoplasm of breast; Translations: [Patient encounter status] Onset: 06-21-2022 Episodic Pancreatic disorders (not diabetes) (10 sources) Drug-induced acute pancreatitis; Translations: [Drug induced acute pancreatitis without necrosis or infection] Onset: 07-18-2023 07-18-2023 Episodic Pneumonia (except that caused by tuberculosis or sexually transmitted disease) (1 source) Pneumonia, unspecified organism; Translations: [PNEUMONIA UNSPECIFIED ORGANISM] Onset: 04-19-2022 Episodic Residual codes; unclassified (1 source) Family history of malignant neoplasm of breast; Translations: [FAMILY HX MALIG NEOPLASM OF BREAST] Onset: 06-25-2022 Episodic Residual codes; unclassified (11 sources) Edema of extremity; Translations: [Localized edema] Onset: 07-18-2023 07-18-2023 Episodic Residual codes; unclassified (12 sources) Tobacco user; Translations: [Tobacco use] Onset: 07-18-2023 07-18-2023 Episodic Residual codes; unclassified (11 sources) Patient noncompliance - general; Translations: [Medical non-compliance] Onset: 07-18-2023 07-18-2023 Episodic Residual codes; unclassified (1 source) Pain, [...] SKIN SUBQ TISSUE UNS] Onset: 06-11-2022 Episodic Viral infection (11 sources) Disease caused by 2019-nCoV; Translations: [COVID-19] Onset: 07-18-2023 07-18-2023 Episodic Results Test Name Value Interpretation Reference Range Facility CBC AND AUTO DIFFon 01-22-20 24 ABSOLUTE BASOPHIL 0.0 X10E9/L Normal 0.0-0.2 [facility] Comment on above: Performed By: #### C BRITTNEY, 47019-9, CMP, , 36763-8 #### [facility] ([id number]) [address] [place] [address] 28391 ABSOLUTE NEUTROPHIL 4.2 X10E9/L Normal 1.5-6.6 [facility] Comment on above: Performed By: #### C BRITTNEY, 44311-7, [facility], , 04084-7 #### [facility] ([id number]) [address] [place] [address] 52796 Basophils/100 WBC (Bld) 0.4 % Normal [facility] Comment on above: Performed By: #### C BCA, 90517-0, CMP, 40498-6, 90353-8 #### [facility] ([id number]) [address] [place] [address] 21919 Eosinophils (Bld) [#/Vol] 0.2 10*3/uL Normal 0.0-0.4 [facility] Comment on above: Performed By: #### C BRITTNEY, 60611-2, CMP, 49965-1, 43438-2 #### [facility] ([id number]) [address] [place] [address] 20074 Eosinophils/100 WBC (Bld) 2.6 % Normal [facility] Comment on above: Performed By: #### Casey LUGO, 37324-3, CMP, 85728-9, 64890-2 #### [facility] ([id number]) [address] [place] [address] 61085 Erythrocyte distribution width (RBC) [Ratio] 13.5 % Normal 11.5-15.0 [facility] Comment on above: Performed By: #### Casey LUGO, 40086-0, CMP, 47280-5, 11932-0 #### [facility] ([id number]) [address] [place] [address] 36959 Hematocrit (Bld) [Volume fraction] 48.3 % High 35-47 [facility] Comment on above: Performed By: #### Casey LUGO, 31404-9, CMP, 67943-4, 89018-3 #### [facility] ([id number]) [address] [place] [address] 27430 Hemoglobin (Bld) [Mass/Vol] 16.0 g/dL High 11.7-15.5 [facility] Comment on above: Performed By: #### Casey LUGO, 85157-9, CMP, 03518-9, 10022-8 #### [facility] ([id number]) [address] [place] [address] 13243 Lymphocytes (Bld) [#/Vol] 1.9 10*3/uL Normal 1.0-3.5 [facility] Comment on above: Performed By: #### Casey BCA, 25083-0, CMP, 18183-5, 16979-5 #### [facility] ([id number]) [address] [place] [address] 85950 Lymphocytes/100 WBC (Bld) 27.1 % Normal [facility] Comment on above: Performed By: #### Casey LUGO, 83370-4, CMP, 95212-8, 34621-8 #### [facility] ([id number]) [address] [place] [address] 74588 MCH (RBC) [Entitic mass] 31.5 pg Normal 27-34 [facility] Comment on above: Performed By: #### Casey LUGO, 04878-1, CMP, 59277-9, 71623-4 #### [facility] ([id number]) [address] [place] [address] 68024 MCHC (RBC) [Mass/Vol] 33.1 g/dL Normal 32-36 [facility] Comment on above: Performed By: #### Casey LUGO, 49377-9, CMP, 67070-7, 03783-7 #### [facility] ([id number]) [address] [place] [address] 25186 MCV (RBC) [Entitic vol] 95 fL Normal 80-100 [facility] Comment on above: Performed By: #### Casey LUGO, 28509-8, CMP, 17970-9, 59008-8 #### [facility] ([id number]) [address] [place] [address] 35594 Monocytes (Bld) [#/Vol] 0.7 10*3/uL Normal 0-0.9 [facility] Comment on above: Performed By: #### Casey LUGO, 72177-0, CMP, 96782-4, 23497-9 #### [facility] ([id number]) [address] [place] [address] 01795 Monocytes/100 WBC (Bld) 10.0 % Normal [facility] Comment on above: Performed By: #### Casey LUGO, 87252-1, CMP, 10259-2, 68972-7 #### [facility] ([id number]) [address] [place] [address] 48513 Neutrophils/100 WBC (Bld) 59.9 % Normal [facility] Comment on above: Performed By: #### Casey BCA, 92929-8, CMP, 84303-4, 05862-7 #### [facility] ([id number]) [address] [place] [address] 71944 Platelet mean volume (Bld) [Entitic vol] 9.0 fL Normal 7-12 [facility] Comment on above: Performed By: #### Casey LUGO, 36666-2, CMP, 13495-3, 19252-2 #### [facility] ([id number]) [address] [place] [address] 62054 Platelets (Bld) [#/Vol] 264 10*3/uL Normal 150-450 [facility] Comment on above: Performed By: #### Casey LUGO, 18232-0, CMP, 44273-3, 10936-5 #### [facility] ([id number]) [address] [place] [address] 27300 RBC COUNT 5.07 X10E12/L Normal 3.80-5.20 [facility] Comment on above: Performed By: #### Casey LUGO, 88315-4, CMP, 75927-6, 02383-3 #### [facility] ([id number]) [address] [place] [address] 74215 WBC (Bld) [#/Vol] 7.1 10*3/uL Normal 4.0-11.0 [facility] Comment on above: Performed By: #### Casey BCA, 53678-3, CMP, 47014-2, 65046-7 #### [facility] ([id number]) [address] [place] [address] 60284 COMPREHENSIVE METABOLIC PANE Blayne 01-22-2024 Albumin [Mass/Vol] 3.1 g/dL Low 3.2-5.3 [facility] Comment on above: Performed By: #### C BCA, 05402-5, CMP, 87419-2, 90524-6 #### [facility] ([id number]) [address] [place] [address] 10898 ALP [Catalytic activity/Vol] 98 U/L Normal 39-130 [facility] Comment on above: Performed By: #### C BCA, 21304-9, CMP, 19375-0, 97369-3 #### [facility] ([id number]) [address] [place] [address] 23352 ALT [Catalytic activity/Vol] 21 U/L Normal 0-31 [facility] Comment on above: Performed By: #### Casey BCA, 21182-5, CMP, 11472-7, 91344-1 #### [facility] ([id number]) [address] [place] [address] 19208 Anion gap [Moles/Vol] 7 mmol/L Normal 5-15 [facility] Comment on above: Performed By: #### C BCA, 06442-1, CMP, 37598-9, 19874-4 #### [facility] ([id number]) [address] [place] [address] 06026 AST [Catalytic activity/Vol] 19 U/L Normal 0-41 [facility] Comment on above: Performed By: #### C BCA, 91892-1, CMP, 84030-4, 17550-0 #### [facility] ([id number]) [address] [place] [address] 01979 Bilirubin [Mass/Vol] 0.5 mg/dL Normal 0.3-1.2 [facility] Comment on above: Performed By: #### C BCA, 09011-1, CMP, 23495-5, 47683-6 #### [facility] ([id number]) [address] [place] [address] 86671 Calcium [Mass/Vol] 8.9 mg/dL Normal 8.5-10.5 [facility] Comment on above: Performed By: #### C BCA, 00373-4, CMP, 22038-7, 33280-6 #### [facility] ([id number]) [address] [place] [address] 26232 Chloride [Moles/Vol] 100 mmol/L Normal 98-109 [facility] Comment on above: Performed By: #### C BCA, 69067-2, CMP, 63359-5, 19399-1 #### [facility] ([id number]) [address] [place] [address] 35729 CO2 [Moles/Vol] 31 mmol/L Normal 22-32 [facility] Comment on above: Performed By: #### C BCA, 20735-3, CMP, 38475-0, 76379-3 #### [facility] ([id number]) [address] [place] [address] 51424 Creatinine [Mass/Vol] 0.51 mg/dL Normal 0.40-1.00 [facility] Comment on above: Result Comment: METH OD TRACEABLE TO IDMS STANDARD Performed By: #### C BCA, 47363-6, CMP, 29514-5, 83006-4 #### [facility] ([id number]) [address] [place] [address] 73846 eGFR (CKD-EPI) NON-RACE DEPENDENT >90 Normal >59 [facility] Comment on above: Result Comment: Reported eGFR is based on the CKD-EPI 2020 equation that does not use a race coefficient. Performed By: #### C BCA, 49625-4, CMP, 45841-9, 20645-3 #### [facility] ([id number]) [address] [place] [address] 28466 Glucose [Mass/Vol] 153 mg/dL High 65-99 [facility] Comment on above: Performed By: #### C BCA, 26405-8, CMP, 58091-4, 33776-8 #### [facility] ([id number]) [address] [place] [address] 67537 Potassium [Moles/Vol] 4.0 mmol/L Normal 3.5-5.0 [facility] Comment on above: Performed By: #### C BCA, 59712-9, CMP, 88070-4, 43369-8 #### [facility] ([id number]) [address] [place] [address] 96185 Protein [Mass/Vol] 6.5 g/dL Normal 6.0-8.0 [facility] Comment on above: Performed By: #### C BCA, 79000-0, CMP, 16906-0, 78969-0 #### [facility] ([id number]) [address] [place] [address] 80669 Sodium [Moles/Vol] 138 mmol/L Normal 134-146 [facility] Comment on above: Performed By: #### Casey BCA, 20555-5, CMP, 48122-2, 62632-8 #### [facility] ([id number]) [address] [place] [address] 09179 Urea nitrogen [Mass/Vol] 20 mg/dL Normal 5-27 [facility] Comment on above: Performed By: #### C BCA, 55048-1, CMP, 69025-4, 31147-7 #### [facility] ([id number]) [address] [place] [address] 61054 MAGNESIUMon 01-22-2024 Magnesium [Mass/Vol] 2.2 mg/dL Normal 1.8-2.6 [facility] Comment on above: Performed By: #### C BCA, 05707-5, CMP, 87144-5, 23178-3 #### [facility] ([id number]) [address] [place] [address] 89067 CBC AND AUTO DIFFon 01-20- 24 ABSOLUTE BASOPHIL 0.0 X10E9/L Normal 0.0-0.2 [facility] Comment on above: Performed By: #### Casey BCA, 49448-3, CMP, 64570-0, 31288-6 #### [facility] ([id number]) [address] [place] [address] 11753 ABSOLUTE NEUTROPHIL 4.5 X10E9/L Normal 1.5-6.6 [facility] Comment on above: Performed By: #### Casey LUGO, 80895-2, CMP, 09412-2, 98091-3 #### [facility] ([id number]) [address] [place] [address] 25872 Basophils/100 WBC (Bld) 0.3 % Normal [facility] Comment on above: Performed By: #### Casey BCA, 79200-7, CMP, 47805-4, 38966-9 #### [facility] ([id number]) [address] [place] [address] 44231 Eosinophils (Bld) [#/Vol] 0.2 10*3/uL Normal 0.0-0.4 [facility] Comment on above: Performed By: #### Casey BCA, 37179-8, CMP, 13805-3, 73307-0 #### [facility] ([id number]) [address] [place] [address] 19198 Eosinophils/100 WBC (Bld) 2.4 % Normal [facility] Comment on above: Performed By: #### Casey BCA, 43022-1, CMP, 01481-4, 38441-3 #### [facility] ([id number]) [address] [place] [address] 48058 Erythrocyte distribution width (RBC) [Ratio] 13.6 % Normal 11.5-15.0 [facility] Comment on above: Performed By: #### Casey LUGO, 27849-3, CMP, 94822-6, 10025-0 #### [facility] ([id number]) [address] [place] [address] 52289 Hematocrit (Bld) [Volume fraction] 48.3 % High 35-47 [facility] Comment on above: Performed By: #### Casey LUGO, 87787-1, CMP, 30593-0, 85984-1 #### [facility] ([id number]) [address] [place] [address] 76950 Hemoglobin (Bld) [Mass/Vol] 16.1 g/dL High 11.7-15.5 [facility] Comment on above: Performed By: #### Casey LUGO, 72256-3, CMP, 19103-9, 21596-1 #### [facility] ([id number]) [address] [place] [address] 27944 Lymphocytes (Bld) [#/Vol] 1.8 10*3/uL Normal 1.0-3.5 [facility] Comment on above: Performed By: #### Casey LUGO, 02804-8, CMP, 84811-5, 51588-9 #### [facility] ([id number]) [address] [place] [address] 76376 Lymphocytes/100 WBC (Bld) 24.9 % Normal [facility] Comment on above: Performed By: #### Casey LUGO, 67140-6, CMP, 66588-9, 85633-7 #### [facility] ([id number]) [address] [place] [address] 60607 MCH (RBC) [Entitic mass] 31.7 pg Normal 27-34 [facility] Comment on above: Performed By: #### Casey BCA, 42737-8, CMP, 10479-8, 75990-8 #### [facility] ([id number]) [address] [place] [address] 93403 MCHC (RBC) [Mass/Vol] 33.4 g/dL Normal 32-36 [facility] Comment on above: Performed By: #### Casey BCA, 42551-5, CMP, 16762-4, 72675-1 #### [facility] ([id number]) [address] [place] [address] 61246 MCV (RBC) [Entitic vol] 95 fL Normal 80-100 [facility] Comment on above: Performed By: #### Casey LUGO, 41711-4, CMP, 73499-7, 55033-7 #### [facility] ([id number]) [address] [place] [address] 70877 Monocytes (Bld) [#/Vol] 0.9 10*3/uL Normal 0-0.9 [facility] Comment on above: Performed By: #### Casey LUGO, 32622-9, CMP, 02323-3, 91647-0 #### [facility] ([id number]) [address] [place] [address] 90444 Monocytes/100 WBC (Bld) 12.0 % Normal [facility] Comment on above: Performed By: #### Casey BCA, 52236-6, CMP, 90687-0, 76993-8 #### [facility] ([id number]) [address] [place] [address] 78907 Neutrophils/100 WBC (Bld) 60.4 % Normal [facility] Comment on above: Performed By: #### Casey BCA, 62130-0, CMP, 81254-1, 90421-4 #### [facility] ([id number]) [address] [place] [address] 72157 Platelet mean volume (Bld) [Entitic vol] 9.6 fL Normal 7-12 [facility] Comment on above: Performed By: #### C BRITTNEY, 13774-3, CMP, 25204-9, 44897-6 #### [facility] ([id number]) [address] [place] [address] 10809 Platelets (Bld) [#/Vol] 230 10*3/uL Normal 150-450 [facility] Comment on above: Performed By: #### Casey LUGO, 07276-8, CMP, 40401-8, 33456-6 #### [facility] ([id number]) [address] [place] [address] 51551 RBC COUNT 5.09 X10E12/L Normal 3.80-5.20 [facility] Comment on above: Performed By: #### Casey LUGO, 02013-7, CMP, 69577-1, 44653-2 #### [facility] ([id number]) [address] [place] [address] 47512 WBC (Bld) [#/Vol] 7.4 10*3/uL Normal 4.0-11.0 [facility] Comment on above: Performed By: #### Casey LUGO, 36326-8, CMP, 89642-4, 66969-0 #### [facility] ([id number]) [address] [place] [address] 31669 COMPREHENSIVE METABOLIC PANE Blayne 01-21-2024 Albumin [Mass/Vol] 3.1 g/dL Low 3.2-5.3 [facility] Comment on above: Performed By: #### Casey LUGO, 50289-8, CMP, 90155-8, 41782-9 #### [facility] ([id number]) [address] [place] [address] 15470 ALP [Catalytic activity/Vol] 96 U/L Normal 39-130 [facility] Comment on above: Performed By: #### C BCA, 61188-0, CMP, 93493-4, 65142-5 #### [facility] ([id number]) [address] [place] [address] 61099 ALT [Catalytic activity/Vol] 18 U/L Normal 0-31 [facility] Comment on above: Performed By: #### C BCA, 27370-4, CMP, 54387-0, 25563-6 #### [facility] ([id number]) [address] [place] [address] 02001 Anion gap [Moles/Vol] 7 mmol/L Normal 5-15 [facility] Comment on above: Performed By: #### C BCA, 01501-8, CMP, 25757-4, 42662-4 #### [facility] ([id number]) [address] [place] [address] 75567 AST [Catalytic activity/Vol] 16 U/L Normal 0-41 [facility] Comment on above: Performed By: #### C BCA, 67386-8, CMP, 26240-9, 90092-1 #### [facility] ([id number]) [address] [place] [address] 58915 Bilirubin [Mass/Vol] 0.5 mg/dL Normal 0.3-1.2 [facility] Comment on above: Performed By: #### C BCA, 22395-1, CMP, 38128-2, 08238-9 #### [facility] ([id number]) [address] [place] [address] 51082 Calcium [Mass/Vol] 9.1 mg/dL Normal 8.5-10.5 [facility] Comment on above: Performed By: #### C BCA, 57421-6, CMP, 34516-8, 34745-9 #### [facility] ([id number]) [address] [place] [address] 55133 Chloride [Moles/Vol] 98 mmol/L Normal 98-109 [facility] Comment on above: Performed By: #### C BCA, 50370-0, CMP, 81250-1, 99633-5 #### [facility] ([id number]) [address] [place] [address] 67328 CO2 [Moles/Vol] 33 mmol/L High 22-32 [facility] Comment on above: Performed By: #### C BCA, 04264-4, CMP, 87650-7, 38212-2 #### [facility] ([id number]) [address] [place] [address] 51875 Creatinine [Mass/Vol] 0.45 mg/dL Normal 0.40-1.00 [facility] Comment on above: Result Comment: METH OD TRACEABLE TO IDMS STANDARD Performed By: #### C BRITTNEY, 37084-4, CMP, 78699-8, 13177-8 #### [facility] ([id number]) [address] [place] [address] 19458 eGFR (CKD-EPI) NON-RACE DEPENDENT >90 Normal >59 [facility] Comment on above: Result Comment: Reported eGFR is based on the CKD-EPI 2020 equation that does not use a race coefficient. Performed By: #### C BCA, 91282-4, CMP, 57176-1, 42859-5 #### [facility] ([id number]) [address] [place] [address] 49711 Glucose [Mass/Vol] 138 mg/dL High 65-99 [facility] Comment on above: Performed By: #### C BCA, 82380-0, CMP, 45623-2, 74326-0 #### [facility] ([id number]) [address] [place] [address] 31830 Potassium [Moles/Vol] 3.8 mmol/L Normal 3.5-5.0 [facility] Comment on above: Performed By: #### C BRITTNEY, 17381-2, CMP, 82353-5, 10348-8 #### [facility] ([id number]) [address] [place] [address] 00253 Protein [Mass/Vol] 6.6 g/dL Normal 6.0-8.0 [facility] Comment on above: Performed By: #### C BRITTNEY, 51856-3, CMP, 94239-1, 13422-2 #### [facility] ([id number]) [address] [place] [address] 45580 Sodium [Moles/Vol] 138 mmol/L Normal 134-146 [facility] Comment on above: Performed By: #### Casey LUGO, 35911-4, CMP, , 36567-5 #### [facility] ([id number]) [address] [place] [address] 09207 Urea nitrogen [Mass/Vol] 18 mg/dL Normal 5-27 [facility] Comment on above: Performed By: #### Casey LUGO, 74567-6, CMP, 75069-5, 21350-1 #### [facility] ([id number]) [address] [place] [address] 62704 Glucose Glucometer (BldC) [M ass/Vol]on 01-21-2024 Glucose [Mass/Vol] 312 mg/dL High 65-99 [facility] Glucose [Mass/Vol] 285 mg/dL High 65-99 [facility] Glucose [Mass/Vol] 178 mg/dL High 65-99 [facility] MAGNESIUMon 01-21-2024 Magnesium [Mass/Vol] 2.2 mg/dL Normal 1.8-2.6 [facility] Comment on above: Performed By: #### C BCA, 63753-0, CMP, , 09036-6 #### [facility] ([id number]) [address] [place] [address] 10137 POTASSIUMon 01-21-2024 Potassium [Moles/Vol] 4.4 mmol/L Normal 3.5-5.0 [facility] Comment on above: Performed By: #### Casey LUGO, 71209-7, CMP, , 83904-2 #### [facility] ([id number]) [address] [place] [address] 25768 CBC AND AUTO DIFFon 01-20-20 ABSOLUTE BASOPHIL 0.0 X10E9/L Normal 0.0-0.2 [facility] Comment on above: Performed By: #### Casey LUGO, 29381-6, CMP, 92511-7, 23497-0 #### [facility] ([id number]) [address] [place] [address] 65047 ABSOLUTE NEUTROPHIL 6.3 X10E9/L Normal 1.5-6.6 [facility] Comment on above: Performed By: #### Casey LUGO, 82917-6, CMP, , 93582-9 #### [facility] ([id number]) [address] [place] [address] 54197 Basophils/100 WBC (Bld) 0.5 % Normal [facility] Comment on above: Performed By: #### Casey BCA, 94236-8, CMP, 93834-5, 81920-1 #### [facility] ([id number]) [address] [place] [address] 36610 Eosinophils (Bld) [#/Vol] 0.1 10*3/uL Normal 0.0-0.4 [facility] Comment on above: Performed By: #### Casey LUGO, 47037-4, CMP, 72013-3, 91168-3 #### [facility] ([id number]) [address] [place] [address] 08615 Eosinophils/100 WBC (Bld) 1.3 % Normal [facility] Comment on above: Performed By: #### Casey LUGO, 27383-5, CMP, 09028-3, 62323-5 #### [facility] ([id number]) [address] [place] [address] 08661 Erythrocyte distribution width (RBC) [Ratio] 13.6 % Normal 11.5-15.0 [facility] Comment on above: Performed By: #### Casey LUGO, 53359-8, [facility], 05806-4, 12379-7 #### [facility] ([id number]) [address] [place] [address]79 Hematocrit (Bld) [Volume fraction] 47.5 % High 35-47 [facility] Comment on above: Performed By: #### Casey LUGO, 31828-9, [facility], , 31162-5 #### [facility] ([id number]) [address] [place] [address] 93715 Hemoglobin (Bld) [Mass/Vol] 16.1 g/dL High 11.7-15.5 [facility] Comment on above: Performed By: #### Casey LUGO, 10792-6, [facility], , 18762-3 #### [facility] ([id number]) [address] [place] [address] 90180 Lymphocytes (Bld) [#/Vol] 1.8 10*3/uL Normal 1.0-3.5 [facility] Comment on above: Performed By: #### Casey LUGO, 69729-2, CMP, 60567-8, 35404-8 #### [facility] ([id number]) [address] [place], [place] [address] 66209 Lymphocytes/100 WBC (Bld) 19.8 % Normal [facility] Comment on above: Performed By: #### C BCA, 46043-2, CMP, 00801-1, 55804-6 #### [facility] ([id number]) [address] [place] [address] 91222 MCH (RBC) [Entitic mass] 32.2 pg Normal 27-34 [facility] Comment on above: Performed By: #### Casey BCA, 63157-2, CMP, 04632-4, 17659-5 #### [facility] ([id number]) [address] [place] [address] 99732 MCHC (RBC) [Mass/Vol] 33.8 g/dL Normal 32-36 [facility] Comment on above: Performed By: #### Casey LUGO, 95591-6, CMP, 27591-6, 27274-4 #### [facility] ([id number]) [address] [place] [address] 76765 MCV (RBC) [Entitic vol] 95 fL Normal 80-100 [facility] Comment on above: Performed By: #### Casey LUGO, 76808-1, CMP, 14560-2, 48361-1 #### [facility] ([id number]) [address] [place] [address] 23060 Monocytes (Bld) [#/Vol] 0.9 10*3/uL Normal 0-0.9 [facility] Comment on above: Performed By: #### Casey BCA, 99118-5, CMP, 19188-6, 61311-6 #### [facility] ([id number]) [address] [place] [address] 68325 Monocytes/100 WBC (Bld) 9.3 % Normal [facility] Comment on above: Performed By: #### Casey BCA, 66466-0, CMP, 49314-6, 41628-9 #### [facility] ([id number]) [address] [place] [address] 05774 Neutrophils/100 WBC (Bld) 69.1 % Normal [facility] Comment on above: Performed By: #### Casey LUGO, 64137-7, CMP, 03676-5, 72424-1 #### [facility] ([id number]) [address] [place] [address] 17859 Platelet mean volume (Bld) [Entitic vol] 9.3 fL Normal 7-12 [facility] Comment on above: Performed By: #### Casey LUGO, 73759-6, CMP, 94415-7, 51512-3 #### [facility] ([id number]) [address] [place] [address] 20531 Platelets (Bld) [#/Vol] 213 10*3/uL Normal 150-450 [facility] Comment on above: Performed By: #### Casey LUGO, 34031-9, CMP, 79599-7, 16584-9 #### [facility] ([id number]) [address] [place] [address] 12440 RBC COUNT 4.99 X10E12/L Normal 3.80-5.20 [facility] Comment on above: Performed By: #### Casey LUGO, 64517-1, CMP, 01897-6, 51804-2 #### [facility] ([id number]) [address] [place] [address] 40449 WBC (Bld) [#/Vol] 9.2 10*3/uL Normal 4.0-11.0 [facility] Comment on above: Performed By: #### Casey LUGO, 05283-7, CMP, 28530-3, 94133-5 #### [facility] ([id number]) [address] [place] [address] 11377 COMPREHENSIVE METABOLIC PANE Blayne 01-20-2024 Albumin [Mass/Vol] 3.1 g/dL Low 3.2-5.3 [facility] Comment on above: Performed By: #### C BCA, 13111-9, CMP, 28261-5, 46269-0 #### [facility] ([id number]) [address] [place] [address] 44981 ALP [Catalytic activity/Vol] 96 U/L Normal 39-130 [facility] Comment on above: Performed By: #### C BCA, 93508-3, CMP, 77038-3, 79321-9 #### [facility] ([id number]) [address] [place] [address] 35919 ALT [Catalytic activity/Vol] 19 U/L Normal 0-31 [facility] Comment on above: Performed By: #### C BCA, 49640-8, CMP, 67307-8, 60694-6 #### [facility] ([id number]) [address] [place] [address] 08130 Anion gap [Moles/Vol] 9 mmol/L Normal 5-15 [facility] Comment on above: Performed By: #### C BCA, 91909-6, CMP, 08453-6, 64065-4 #### [facility] ([id number]) [address] [place] [address] 26736 AST [Catalytic activity/Vol] 17 U/L Normal 0-41 [facility] Comment on above: Performed By: #### C BCA, 96410-7, CMP, 33963-1, 31417-8 #### [facility] ([id number]) [address] [place] [address] 40177 Bilirubin [Mass/Vol] 0.5 mg/dL Normal 0.3-1.2 [facility] Comment on above: Performed By: #### C BCA, 57723-6, CMP, 20674-5, 26158-0 #### [facility] ([id number]) [address] [place] [address] 89959 Calcium [Mass/Vol] 8.8 mg/dL Normal 8.5-10.5 [facility] Comment on above: Performed By: #### C BCA, 18822-3, CMP, 64518-6, 81331-6 #### [facility] ([id number]) [address] [place] [address] 50492 Chloride [Moles/Vol] 98 mmol/L Normal 98-109 [facility] Comment on above: Performed By: #### C BRITTNEY, 64160-0, CMP, 65389-8, 75322-0 #### [facility] ([id number]) [address] [place] [address] 44869 CO2 [Moles/Vol] 30 mmol/L Normal 22-32 [facility] Comment on above: Performed By: #### C BRITTNEY, 33877-7, CMP, 04047-0, 65698-7 #### [facility] ([id number]) [address] [place] [address] 07809 Creatinine [Mass/Vol] 0.50 mg/dL Normal 0.40-1.00 [facility] Comment on above: Result Comment: METH OD TRACEABLE TO IDMS STANDARD Performed By: #### C BRITTNEY, 76797-2, CMP, 32882-7, 21173-5 #### [facility] ([id number]) [address] [place] [address] 39867 eGFR (CKD-EPI) NON-RACE DEPENDENT >90 Normal >59 [facility] Comment on above: Result Comment: Reported eGFR is based on the CKD-EPI 2020 equation that does not use a race coefficient. Performed By: #### C BCA, 61029-7, CMP, 67315-1, 00573-4 #### [facility] ([id number]) [address] [place] [address] Glucose [Mass/Vol] 282 mg/dL High 65-99 [facility] Comment on above: Performed By: #### C BCA, 12518-2, CMP, 89339-3, 39322-0 #### [facility] ([id number]) [address] [place] [address] 64981 Potassium [Moles/Vol] 4.2 mmol/L Normal 3.5-5.0 [facility] Comment on above: Performed By: #### C BCA, 68999-2, CMP, 74435-1, 37977-5 #### [facility] ([id number]) [address] [place] [address] 92664 Protein [Mass/Vol] 6.2 g/dL Normal 6.0-8.0 [facility] Comment on above: Performed By: #### Casey LUGO, 68332-6, CMP, 25044-2, 32658-8 #### [facility] ([id number]) [address] [place] [address] 70023 Sodium [Moles/Vol] 137 mmol/L Normal 134-146 [facility] Comment on above: Performed By: #### Casey BCA, 82647-3, CMP, 54407-0, 41267-6 #### [facility] ([id number]) [address] [place] [address] 14732 Urea nitrogen [Mass/Vol] 18 mg/dL Normal 5-27 [facility] Comment on above: Performed By: #### C BCA, 23099-0, CMP, 46564-2, 00950-7 #### [facility] ([id number]) [address] [place] [address] 16904 Glucose Glucometer (BldC) [M ass/Vol]on 01-20-2024 Glucose [Mass/Vol] 277 mg/dL High 65-99 [facility] Glucose [Mass/Vol] 174 mg/dL High 65-99 [facility] Glucose [Mass/Vol] 324 mg/dL High 65-99 [facility] Glucose [Mass/Vol] 172 mg/dL High 65-99 [facility] MAGNESIUMon 01-20-2024 Magnesium [Mass/Vol] 2.0 mg/dL Normal 1.8-2.6 [facility] Comment on above: Performed By: #### Casey LUGO, 23964-9, CMP, 56675-2, 45028-8 #### [facility] ([id number]) [address] [place] [address] 69011 CBC AND AUTO DIFFon 01-19-20 ABSOLUTE BASOPHIL 0.0 X10E9/L Normal 0.0-0.2 [facility] Comment on above: Performed By: #### Casey LUGO, 93497-6, CMP, 02236-3, 14684-9 #### [facility] ([id number]) [address] [place] [address] 14245 ABSOLUTE NEUTROPHIL 7.7 X10E9/L High 1.5-6.6 [facility] Comment on above: Performed By: #### Casey LUGO, 43307-4, CMP, , 49831-4 #### [facility] ([id number]) [address] [place] [address] 11295 Basophils/100 WBC (Bld) 0.4 % Normal [facility] Comment on above: Performed By: #### Casey LUGO, 77112-6, CMP, 94357-7, 41499-1 #### [facility] ([id number]) [address] [place] [address] 69947 Eosinophils (Bld) [#/Vol] 0.2 10*3/uL Normal 0.0-0.4 [facility] Comment on above: Performed By: #### Casey LUGO, 87285-0, CMP, 25120-2, 79920-9 #### [facility] ([id number]) [address] [place] [address] 41142 Eosinophils/100 WBC (Bld) 1.7 % Normal [facility] Comment on above: Performed By: #### Casey LUGO, 17369-6, CMP, 89776-9, 17565-0 #### [facility] ([id number]) [address] [place] [address] 79881 Erythrocyte distribution width (RBC) [Ratio] 13.7 % Normal 11.5-15.0 [facility] Comment on above: Performed By: #### Casey LUGO, 81229-9, CMP, 14659-7, 75940-9 #### [facility] ([id number]) [address] [place] [address] 71705 Hematocrit (Bld) [Volume fraction] 48.3 % High 35-47 [facility] Comment on above: Performed By: #### Casey LUGO, 48372-5, [facility], , 25005-4 #### [facility] ([id number]) [address] [place] [address] 50915 Hemoglobin (Bld) [Mass/Vol] 15.9 g/dL High 11.7-15.5 [facility] Comment on above: Performed By: #### Casey LUGO, 81065-4, CMP, , 13353-2 #### [facility] ([id number]) [address] [place] [address] 56507 Lymphocytes (Bld) [#/Vol] 2.2 10*3/uL Normal 1.0-3.5 [facility] Comment on above: Performed By: #### Casey LUGO, 30809-0, CMP, 57314-4, 90694-9 #### [facility] ([id number]) [address] [place] [address] 79865 Lymphocytes/100 WBC (Bld) 20.2 % Normal [facility] Comment on above: Performed By: #### Casey BCA, 64630-1, CMP, 60162-8, 16219-4 #### [facility] ([id number]) [address] [place] [address] 93883 MCH (RBC) [Entitic mass] 31.1 pg Normal 27-34 [facility] Comment on above: Performed By: #### Casey BCA, 25317-0, CMP, 18448-5, 46496-2 #### [facility] ([id number]) [address] [place] [address] 61202 MCHC (RBC) [Mass/Vol] 32.9 g/dL Normal 32-36 [facility] Comment on above: Performed By: #### Casey LUGO, 35991-7, CMP, 52867-2, 40421-6 #### [facility] ([id number]) [address] [place] [address] 71952 MCV (RBC) [Entitic vol] 95 fL Normal 80-100 [facility] Comment on above: Performed By: #### Casey LUGO, 13747-4, CMP, 80505-8, 97874-0 #### [facility] ([id number]) [address] [place] [address] 37416 Monocytes (Bld) [#/Vol] 0.9 10*3/uL Normal 0-0.9 [facility] Comment on above: Performed By: #### Casey BCA, 58151-7, CMP, 05499-7, 57923-1 #### [facility] ([id number]) [address] [place] [address] 82855 Monocytes/100 WBC (Bld) 8.1 % Normal [facility] Comment on above: Performed By: #### Casey LUGO, 05299-1, CMP, 23598-7, 64060-2 #### [facility] ([id number]) [address] [place] [address] 78812 Neutrophils/100 WBC (Bld) 69.6 % Normal [facility] Comment on above: Performed By: #### Casey LUGO, 63022-2, CMP, 74888-9, 36532-6 #### [facility] ([id number]) [address] [place] [address] 40415 Platelet mean volume (Bld) [Entitic vol] 9.9 fL Normal 7-12 [facility] Comment on above: Performed By: #### Casey LUGO, 49982-2, CMP, 98982-4, 86284-1 #### [facility] ([id number]) [address] [place] [address] 63068 Platelets (Bld) [#/Vol] 219 10*3/uL Normal 150-450 [facility] Comment on above: Performed By: #### Csaey LUGO, 17073-3, CMP, 45924-1, 82462-2 #### [facility] ([id number]) [address] [place] [address] 72745 RBC COUNT 5.11 X10E12/L Normal 3.80-5.20 [facility] Comment on above: Performed By: #### Casey LUGO, 06276-5, CMP, 29199-0, 93535-7 #### [facility] ([id number]) [address] [place] [address] 74638 WBC (Bld) [#/Vol] 11.0 10*3/uL Normal 4.0-11.0 [facility] Comment on above: Performed By: #### Casey LUGO, 85456-1, CMP, 75119-9, 57600-3 #### [facility] ([id number]) [address] [place] [address] 46555 COMPREHENSIVE METABOLIC PANE Blayne 01-19-2024 Albumin [Mass/Vol] 2.9 g/dL Low 3.2-5.3 [facility] Comment on above: Performed By: #### C BCA, 35633-7, CMP, 66011-2, 94288-4 #### [facility] ([id number]) [address] [place] [address] 33604 ALP [Catalytic activity/Vol] 112 U/L Normal 39-130 [facility] Comment on above: Performed By: #### C BCA, 48803-0, CMP, 01016-2, 11553-4 #### [facility] ([id number]) [address] [place] [address] 47082 ALT [Catalytic activity/Vol] 21 U/L Normal 0-31 [facility] Comment on above: Performed By: #### Casey BCA, 73258-1, CMP, 19229-2, 94079-2 #### [facility] ([id number]) [address] [place] [address] 31095 Anion gap [Moles/Vol] 9 mmol/L Normal 5-15 [facility] Comment on above: Performed By: #### Casey BCA, 29984-1, CMP, 37787-7, 96898-4 #### [facility] ([id number]) [address] [place] [address] 50027 AST [Catalytic activity/Vol] 16 U/L Normal 0-41 [facility] Comment on above: Performed By: #### C BCA, 70884-4, CMP, 95940-7, 54644-8 #### [facility] ([id number]) [address] [place] [address] 82837 Bilirubin [Mass/Vol] 0.5 mg/dL Normal 0.3-1.2 [facility] Comment on above: Performed By: #### Casey BCA, 22868-9, CMP, 83104-8, 27599-3 #### [facility] ([id number]) [address] [place] [address] 33256 Calcium [Mass/Vol] 8.9 mg/dL Normal 8.5-10.5 [facility] Comment on above: Performed By: #### C BCA, 40621-1, CMP, 24909-6, 03969-6 #### [facility] ([id number]) [address] [place] [address] 33193 Chloride [Moles/Vol] 98 mmol/L Normal 98-109 [facility] Comment on above: Performed By: #### C BCA, 86570-5, CMP, 69340-6, 96221-7 #### [facility] ([id number]) [address] [place] [address] 08412 CO2 [Moles/Vol] 29 mmol/L Normal 22-32 [facility] Comment on above: Performed By: #### C BCA, 62654-0, CMP, 81199-0, 21373-9 #### [facility] ([id number]) [address] [place] [address] 43048 Creatinine [Mass/Vol] 0.46 mg/dL Normal 0.40-1.00 [facility] Comment on above: Result Comment: METH OD TRACEABLE TO IDMS STANDARD Performed By: #### C BCA, 59382-3, CMP, 51975-4, 97492-4 #### [facility] ([id number]) [address] [place] [address] 91003 eGFR (CKD-EPI) NON-RACE DEPENDENT >90 Normal >59 [facility] Comment on above: Result Comment: Reported eGFR is based on the CKD-EPI 2020 equation that does not use a race coefficient. Performed By: #### C BCA, 82839-4, CMP, 99632-3, 78182-6 #### [facility] ([id number]) [address], [place] [address] Glucose [Mass/Vol] 168 mg/dL High 65-99 [facility] Comment on above: Performed By: #### C BCA, 18812-1, CMP, 77673-8, 80880-5 #### [facility] ([id number]) [address] [place] [address] 15510 Potassium [Moles/Vol] 3.7 mmol/L Normal 3.5-5.0 [facility] Comment on above: Performed By: #### C BCA, 12437-4, CMP, 97640-7, 54588-2 #### [facility] ([id number]) [address] [place] [address] 19983 Protein [Mass/Vol] 6.2 g/dL Normal 6.0-8.0 [facility] Comment on above: Performed By: #### Casey LUGO, 56514-2, CMP, 99042-7, 15268-5 #### [facility] ([id number]) [address] [place] [address] 47120 Sodium [Moles/Vol] 136 mmol/L Normal 134-146 [facility] Comment on above: Performed By: #### Casey BCA, 71352-7, CMP, 53278-2, 10731-0 #### [facility] ([id number]) [address] [place] [address] 12549 Urea nitrogen [Mass/Vol] 19 mg/dL Normal 5-27 [facility] Comment on above: Performed By: #### C BCA, 64690-5, CMP, 11118-2, 38490-0 #### [facility] ([id number]) [address] [place] [address] 83906 Glucose Glucometer (BldC) [M ass/Vol]on 01-19-2024 Glucose [Mass/Vol] 241 mg/dL High 65-99 [facility] Glucose [Mass/Vol] 203 mg/dL High 65-99 [facility] Glucose [Mass/Vol] 237 mg/dL High 65-99 [facility] MAGNESIUMon 01-19-2024 Magnesium [Mass/Vol] 2.0 mg/dL Normal 1.8-2.6 [facility] Comment on above: Performed By: #### C BRITTNEY, 52664-4, CMP, 04844-5, 63642-4 #### [facility] ([id number]) [address] [place] [address] 36003 POTASSIUMon 01-19-2024 Potassium [Moles/Vol] 4.4 mmol/L Normal 3.5-5.0 [facility] Comment on above: Performed By: #### C BRITTNEY, 52860-6, CMP, 69480-7, 55818-5 #### [facility] ([id number]) [address] [place] [address] [place] [address] URINALYSISon 01-19-2024 Bilirubin Ql (U) Negative Normal NEG [facility] Comment on above: Performed By: #### C BRITTNEY, 63025-0, CMP, , 29623-6 #### [facility] ([id number]) [address] [place] [address] [place] [address] BLOOD/HGB SMALL Abnormal NEG [facility] Comment on above: Performed By: #### C BRITTNEY, 32422-3, CMP, , 19858-9 #### [facility] ([id number]) [address] [place] [address], [place] [address] Color (U) YELLOW Normal YELLOW [facility] Comment on above: Performed By: #### C BRITTNEY, 98661-4, CMP, , 76472-5 #### [facility] ([id number]) [address] [place] [address] [place] [address] Glucose Ql (U) >1000 Abnormal NEG [facility] Comment on above: Performed By: #### C BCA, 78997-0, CMP, 54049-8, 53411-6 #### [facility] ([id number]) [address] [place] [address] 70817 Ketones Ql (U) Negative Normal NEG [facility] Comment on above: Performed By: #### C BCA, 27718-0, CMP, 35624-5, 52635-0 #### [facility] ([id number]) [address] [place] [address] 56010 Leukocyte esterase Test strip Ql (U) MODERATE Abnormal NEG [facility] Comment on above: Result Comment: HIGH CONCENTRATIONS OF GLUCOSE MAY DECREASE THE REACTIVITY OF THE DIPSTICK LEUKOCYTE TEST PAD. Performed By: #### C BRITTNEY, 27262-2, CMP, 78343-0, 88178-4 #### [facility] ([id number]) [address] [place] [address] 61506 Nitrite Ql (U) Negative Normal NEG [facility] Comment on above: Performed By: #### C BRITTNEY, 00754-1, CMP, 19259-1, 06982-4 #### [facility] ([id number]) [address] [place] [address] 87426 pH (U) 6.5 [pH] Normal 5.0-8.5 [facility] Comment on above: Performed By: #### Casey LUGO, 87376-0, CMP, 01570-1, 43512-4 #### [facility] ([id number]) [address] [place] [address] 92176 Protein Ql (U) Negative Normal NEG [facility] Comment on above: Performed By: #### C BCA, 57056-4, CMP, 30009-7, 99703-4 #### [facility] ([id number]) [address] [place] [address] 33922 R.B.CELLS 10 /hpf High 0-5 [facility] Comment on above: Performed By: #### Casey LUGO, 39584-3, CMP, 40220-1, 68352-8 #### [facility] ([id number]) [address] [place] [address] 48967 Specific gravity (U) [Rel density] 1.010 Normal 1.003-1.035 [facility] Comment on above: Performed By: #### Casey LUGO, 11066-4, CMP, 93808-0, 18508-4 #### [facility] ([id number]) [address] [place] [address] 85706 SQUAMOUS EPITHELIUM 4 /hpf Normal 0-5 [facility] Comment on above: Performed By: #### Casey LUGO, 90409-2, CMP, 52971-8, 00826-5 #### [facility] ([id number]) [address] [place] [address] 92696 TRANSITIONAL EPITH 1 /hpf High 0 [facility] Comment on above: Performed By: #### Casey LUGO, 71607-0, CMP, 84883-1, 01136-4 #### [facility] ([id number]) [address] [place] [address] [place] [address] TURBIDITY CLOUDY Abnormal CLEAR [facility] Comment on above: Performed By: #### Casey LUGO, 22449-3, CMP, 97498-5, 34003-8 #### [facility] ([id number]) [address] [place] [address] 11051 Urobilinogen Qn (U) 0.2 {Beau'U}/dL Normal <1.1 [facility] Comment on above: Performed By: #### Casey LUGO, 38519-1, CMP, 22458-5, 47775-4 #### [facility] ([id number]) [address] [place] [address] 60545 W.B.CELLS >100 High 0-5 [facility] Comment on above: Performed By: #### Casey LUGO, 27693-0, CMP, 37272-9, 03153-7 #### [facility] ([id number]) [address] [place] [address] 57017 URINE CULTUREon 01-19-2024 Bacteria identified Cx Nom (U) CULTURE RESULTS 50-100,000 ORGANISMS/ML NORMAL UROGENITAL AMILCAR Normal [facility] Comment on above: Performed By: #### Casey LUGO, 70795-7, CMP, 51771-2, 19705-3 #### [facility] ([id number]) [address] [place] [address] 16305 CBC AND AUTO DIFFon 01-18-20 24 ABSOLUTE BASOPHIL 0.0 X10E9/L Normal 0.0-0.2 [facility] Comment on above: Performed By: #### Casey LUGO, 08371-5, [facility], , 07097-9 #### [facility] ([id number]) [address] [place] [address] 86536 ABSOLUTE NEUTROPHIL 8.3 X10E9/L High 1.5-6.6 [facility] Comment on above: Performed By: #### Casey LUGO, 53965-8, [facility], 88517-1, 61957-1 #### [facility] ([id number]) [address] [place] [address] 54266 Basophils/100 WBC (Bld) 0.3 % Normal [facility] Comment on above: Performed By: #### Casey LUGO, 73759-8, CMP, 49513-8, 59420-9 #### [facility] ([id number]) [address] [place] [address] 04061 Eosinophils (Bld) [#/Vol] 0.3 10*3/uL Normal 0.0-0.4 [facility] Comment on above: Performed By: #### Casey LUGO, 46731-8, CMP, 99078-2, 02234-0 #### [facility] ([id number]) [address] [place] [address] 01772 Eosinophils/100 WBC (Bld) 2.1 % Normal [facility] Comment on above: Performed By: #### Casey LUGO, 36054-5, CMP, 14784-0, 32302-4 #### [facility] ([id number]) [address] [place] [address] 02207 Erythrocyte distribution width (RBC) [Ratio] 13.6 % Normal 11.5-15.0 [facility] Comment on above: Performed By: #### Casey LUGO, 93335-1, CMP, 23651-6, 03332-0 #### [facility] ([id number]) [address] [place] [address] 80491 Hematocrit (Bld) [Volume fraction] 54.5 % High 35-47 [facility] Comment on above: Performed By: #### Casey LUGO, 98781-9, CMP, 50339-4, 00965-0 #### [facility] ([id number]) [address] [place] [address] 58127 Hemoglobin (Bld) [Mass/Vol] 18.1 g/dL High 11.7-15.5 [facility] Comment on above: Performed By: #### Casey BCA, 92422-6, CMP, 52891-2, 00588-9 #### [facility] ([id number]) [address] [place] [address] 82158 Lymphocytes (Bld) [#/Vol] 2.4 10*3/uL Normal 1.0-3.5 [facility] Comment on above: Performed By: #### Casey LUGO, 77982-1, CMP, 00437-3, 07417-0 #### [facility] ([id number]) [address] [place] [address] 33239 Lymphocytes/100 WBC (Bld) 20.1 % Normal [facility] Comment on above: Performed By: #### C BRITTNEY, 36555-6, CMP, 67519-2, 42544-4 #### [facility] ([id number]) [address] [place] [address] 79767 MCH (RBC) [Entitic mass] 31.3 pg Normal 27-34 [facility] Comment on above: Performed By: #### Casey LUGO, 35292-3, CMP, 56829-2, 03824-1 #### [facility] ([id number]) [address] [place] [address] 69084 MCHC (RBC) [Mass/Vol] 33.2 g/dL Normal 32-36 [facility] Comment on above: Performed By: #### Casey LUGO, 07077-1, CMP, 78928-6, 66443-2 #### [facility] ([id number]) [address] [place] [address] 15035 MCV (RBC) [Entitic vol] 94 fL Normal 80-100 [facility] Comment on above: Performed By: #### Casey LUGO, 90072-7, CMP, 14322-8, 66142-7 #### [facility] ([id number]) [address] [place] [address] 46499 Monocytes (Bld) [#/Vol] 0.8 10*3/uL Normal 0-0.9 [facility] Comment on above: Performed By: #### Casey LUGO, 65269-0, CMP, 89634-7, 82584-7 #### [facility] ([id number]) [address] [place] [address] 49384 Monocytes/100 WBC (Bld) 7.1 % Normal [facility] Comment on above: Performed By: #### Casey BCA, 21034-3, CMP, 40329-1, 41909-0 #### [facility] ([id number]) [address] [place] [address] 02730 Neutrophils/100 WBC (Bld) 70.4 % Normal [facility] Comment on above: Performed By: #### Casey LUGO, 59949-1, CMP, 28485-4, 80348-4 #### [facility] ([id number]) [address] [place] [address] 02799 Platelet mean volume (Bld) [Entitic vol] 10.1 fL Normal 7-12 [facility] Comment on above: Performed By: #### Casey LUGO, 59143-1, CMP, 00960-9, 37553-6 #### [facility] ([id number]) [address] [place] [address] 86381 Platelets (Bld) [#/Vol] 279 10*3/uL Normal 150-450 [facility] Comment on above: Performed By: #### Casey LUGO, 35341-9, CMP, 65723-4, 70077-2 #### [facility] ([id number]) [address] [place] [address] 34041 RBC COUNT 5.78 X10E12/L High 3.80-5.20 [facility] Comment on above: Performed By: #### Casey BCA, 42851-3, CMP, 84102-7, 41342-4 #### [facility] ([id number]) [address] [place] [address] 22731 WBC (Bld) [#/Vol] 11.8 10*3/uL High 4.0-11.0 [facility] Comment on above: Performed By: #### Casey LUGO, 59258-5, CMP, 46176-7, 05653-0 #### [facility] ([id number]) [address] [place] [address] 08943 COMPREHENSIVE METABOLIC PANE Blayne 01-18-2024 Albumin [Mass/Vol] 3.5 g/dL Normal 3.2-5.3 [facility] Comment on above: Performed By: #### C BCA, 89549-2, CMP, 91445-8, 53480-6 #### [facility] ([id number]) [address] [place] [address] 53102 ALP [Catalytic activity/Vol] 115 U/L Normal 39-130 [facility] Comment on above: Performed By: #### C BCA, 81923-3, CMP, 03967-6, 62516-8 #### [facility] ([id number]) [address] [place] [address] 03040 ALT [Catalytic activity/Vol] 25 U/L Normal 0-31 [facility] Comment on above: Performed By: #### C BCA, 40778-6, CMP, 82904-9, 86905-3 #### [facility] ([id number]) [address] [place] [address] 07729 Anion gap [Moles/Vol] 8 mmol/L Normal 5-15 [facility] Comment on above: Performed By: #### C BCA, 77138-8, CMP, 61916-3, 90316-8 #### [facility] ([id number]) [address] [place] [address] 62713 AST [Catalytic activity/Vol] 23 U/L Normal 0-41 [facility] Comment on above: Performed By: #### C BCA, 88191-4, CMP, 00090-0, 02979-0 #### [facility] ([id number]) [address] [place] [address] 31891 Bilirubin [Mass/Vol] 0.7 mg/dL Normal 0.3-1.2 [facility] Comment on above: Performed By: #### C BCA, 86719-3, CMP, 28901-3, 79973-7 #### [facility] ([id number]) [address] [place] [address] 28944 Calcium [Mass/Vol] 9.2 mg/dL Normal 8.5-10.5 [facility] Comment on above: Performed By: #### C BCA, 35493-2, CMP, 10248-6, 11362-4 #### [facility] ([id number]) [address] [place] [address] 87241 Chloride [Moles/Vol] 98 mmol/L Normal 98-109 [facility] Comment on above: Performed By: #### C BCA, 93690-7, CMP, 34046-7, 39261-0 #### [facility] ([id number]) [address] [place] [address] 43213 CO2 [Moles/Vol] 32 mmol/L Normal 22-32 [facility] Comment on above: Performed By: #### C BCA, 34933-9, CMP, 20301-8, 95739-1 #### [facility] ([id number]) [address] [place] [address] 95437 Creatinine [Mass/Vol] 0.56 mg/dL Normal 0.40-1.00 [facility] Comment on above: Result Comment: METH OD TRACEABLE TO IDMS STANDARD Performed By: #### C BCA, 68099-0, CMP, 06771-9, 69371-0 #### [facility] ([id number]) [address] [place] [address] 76481 eGFR (CKD-EPI) NON-RACE DEPENDENT >90 Normal >59 [facility] Comment on above: Result Comment: Reported eGFR is based on the CKD-EPI 2020 equation that does not use a race coefficient. Performed By: #### C BCA, 75372-4, CMP, 67145-0, 29661-6 #### [facility] ([id number]) [address] [place] [address] 61745 Glucose [Mass/Vol] 113 mg/dL High 65-99 [facility] Comment on above: Performed By: #### C BCA, 42399-4, CMP, 78146-8, 42926-6 #### [facility] ([id number]) [address] [place] [address] 23565 Potassium [Moles/Vol] 3.4 mmol/L Low 3.5-5.0 [facility] Comment on above: Performed By: #### C BCA, 21494-0, CMP, 57106-8, 98828-6 #### [facility] ([id number]) [address] [place] [address] 86034 Protein [Mass/Vol] 7.2 g/dL Normal 6.0-8.0 [facility] Comment on above: Performed By: #### C BCA, 91247-1, CMP, 41911-2, 36714-2 #### [facility] ([id number]) [address] [place] [address] 44858 Sodium [Moles/Vol] 138 mmol/L Normal 134-146 [facility] Comment on above: Performed By: #### C BCA, 33084-0, CMP, 12206-8, 96017-0 #### [facility] ([id number]) [address] [place] [address] 64599 Urea nitrogen [Mass/Vol] 14 mg/dL Normal 5-27 [facility] Comment on above: Performed By: #### C BCA, 57673-3, CMP, 77938-3, 02042-8 #### [facility] ([id number]) [address] [place] [address] 22121 Glucose Glucometer (BldC) [M ass/Vol]on 01-18-2024 Glucose [Mass/Vol] 256 mg/dL High 65-99 [facility] Glucose [Mass/Vol] 235 mg/dL High 65-99 [facility] Glucose [Mass/Vol] 302 mg/dL High 65-99 [facility] Glucose [Mass/Vol] 108 mg/dL High 65-99 [facility] MAGNESIUMon 01-18-2024 Magnesium [Mass/Vol] 2.1 mg/dL Normal 1.8-2.6 [facility] Comment on above: Performed By: #### C BRITTNEY, 54821-3, CMP, 05366-9, 40816-8 #### [facility] ([id number]) [address] [place] [address] 55699 POTASSIUMon 01-18-2024 Potassium [Moles/Vol] 4.7 mmol/L Normal 3.5-5.0 [facility] Comment on above: Performed By: #### Casey LUGO, 97957-8, CMP, 84301-9, 22747-6 #### [facility] ([id number]) [address] [place] [address] 60386 CBC AND AUTO DIFFon 01-17-20 24 ABSOLUTE BASOPHIL 0.0 X10E9/L Normal 0.0-0.2 [facility] Comment on above: Performed By: #### Casey LUGO, 36549-2, CMP, 37292-8, 70818-1 #### [facility] ([id number]) [address] [place] [address] 18735 ABSOLUTE NEUTROPHIL 6.1 X10E9/L Normal 1.5-6.6 [facility] Comment on above: Performed By: #### Casey LUGO, 28216-0, CMP, 19505-3, 46567-3 #### [facility] ([id number]) [address] [place] [address] 90378 Basophils/100 WBC (Bld) 0.4 % Normal [facility] Comment on above: Performed By: #### C BCA, 24352-5, CMP, 98109-8, 62376-7 #### [facility] ([id number]) [address] [place] [address] Eosinophils (Bld) [#/Vol] 0.3 10*3/uL Normal 0.0-0.4 [facility] Comment on above: Performed By: #### Casey BCA, 84814-5, CMP, 15772-1, 15988-4 #### [facility] ([id number]) [address] [place], [place] [address] Eosinophils/100 WBC (Bld) 2.7 % Normal [facility] Comment on above: Performed By: #### Casey LUGO, 29898-6, CMP, 30130-9, 90764-5 #### [facility] ([id number]) [address] [place] [address] 91743 Erythrocyte distribution width (RBC) [Ratio] 13.6 % Normal 11.5-15.0 [facility] Comment on above: Performed By: #### Casey BCA, 25060-2, CMP, 02054-6, 23693-7 #### [facility] ([id number]) [address] [place] [address] 63709 Hematocrit (Bld) [Volume fraction] 50.3 % High 35-47 [facility] Comment on above: Performed By: #### Casey BCA, 82613-0, CMP, 99003-6, 05251-7 #### [facility] ([id number]) [address] [place] [address] 73456 Hemoglobin (Bld) [Mass/Vol] 16.9 g/dL High 11.7-15.5 [facility] Comment on above: Performed By: #### Casey BCA, 62304-2, CMP, 59713-0, 07317-9 #### [facility] ([id number]) [address] [place] [address] 46072 Lymphocytes (Bld) [#/Vol] 2.5 10*3/uL Normal 1.0-3.5 [facility] Comment on above: Performed By: #### Casey LUGO, 66399-4, CMP, 99427-7, 18123-9 #### [facility] ([id number]) [address] [place] [address] 00129 Lymphocytes/100 WBC (Bld) 25.5 % Normal [facility] Comment on above: Performed By: #### Casey LUGO, 13065-4, CMP, 02443-5, 39779-4 #### [facility] ([id number]) [address] [place] [address] 50014 MCH (RBC) [Entitic mass] 31.5 pg Normal 27-34 [facility] Comment on above: Performed By: #### Casey LUGO, 67484-9, CMP, 86492-3, 37319-7 #### [facility] ([id number]) [address] [place] [address] 77410 MCHC (RBC) [Mass/Vol] 33.7 g/dL Normal 32-36 [facility] Comment on above: Performed By: #### Casey LUGO, 73736-8, CMP, 68380-5, 49030-0 #### [facility] ([id number]) [address] [place] [address] 96326 MCV (RBC) [Entitic vol] 94 fL Normal 80-100 [facility] Comment on above: Performed By: #### Casey LUGO, 15762-8, CMP, 20856-4, 39859-4 #### [facility] ([id number]) [address] [place] [address] 16527 Monocytes (Bld) [#/Vol] 0.9 10*3/uL Normal 0-0.9 [facility] Comment on above: Performed By: #### Casey BCA, 61844-2, CMP, 44808-2, 31583-9 #### [facility] ([id number]) [address] [place] [address] 06315 Monocytes/100 WBC (Bld) 8.8 % Normal [facility] Comment on above: Performed By: #### Casey BCA, 86763-1, CMP, 64121-4, 16026-2 #### [facility] ([id number]) [address] [place] [address] 99921 Neutrophils/100 WBC (Bld) 62.6 % Normal [facility] Comment on above: Performed By: #### Casey LUGO, 10197-2, CMP, 17006-2, 15264-4 #### [facility] ([id number]) [address] [place] [address] 61439 Platelet mean volume (Bld) [Entitic vol] 9.3 fL Normal 7-12 [facility] Comment on above: Performed By: #### Casey LUGO, 75987-2, CMP, 51260-4, 96752-7 #### [facility] ([id number]) [address] [place] [address] 61657 Platelets (Bld) [#/Vol] 243 10*3/uL Normal 150-450 [facility] Comment on above: Performed By: #### Casey BCA, 62716-2, CMP, 26330-4, 15304-3 #### [facility] ([id number]) [address] [place] [address] 98448 RBC COUNT 5.38 X10E12/L High 3.80-5.20 [facility] Comment on above: Performed By: #### Casey LUGO, 77388-9, CMP, 57610-0, 11568-3 #### [facility] ([id number]) [address] [place] [address] 04645 WBC (Bld) [#/Vol] 9.8 10*3/uL Normal 4.0-11.0 [facility] Comment on above: Performed By: #### C BCA, 75537-4, CMP, 67339-1, 05411-6 #### [facility] ([id number]) [address] [place] [address] 36440 COMPREHENSIVE METABOLIC PANE Blayne 01-17-2024 Albumin [Mass/Vol] 3.1 g/dL Low 3.2-5.3 [facility] Comment on above: Performed By: #### C BCA, 05354-9, CMP, 57123-8, 71602-0 #### [facility] ([id number]) [address] [place] [address] 75082 ALP [Catalytic activity/Vol] 101 U/L Normal 39-130 [facility] Comment on above: Performed By: #### C BCA, 04632-8, CMP, 19586-2, 45879-7 #### [facility] ([id number]) [address] [place] [address] 93405 ALT [Catalytic activity/Vol] 17 U/L Normal 0-31 [facility] Comment on above: Performed By: #### C BCA, 98258-2, CMP, 90214-3, 13354-7 #### [facility] ([id number]) [address] [place] [address] 50007 Anion gap [Moles/Vol] 8 mmol/L Normal 5-15 [facility] Comment on above: Performed By: #### C BCA, 46510-0, CMP, 64224-7, 16189-6 #### [facility] ([id number]) [address] [place] [address] 42687 AST [Catalytic activity/Vol] 18 U/L Normal 0-41 [facility] Comment on above: Performed By: #### C BCA, 96697-9, CMP, 93932-7, 10955-2 #### [facility] ([id number]) [address] [place] [address] 21506 Bilirubin [Mass/Vol] 1.0 mg/dL Normal 0.3-1.2 [facility] Comment on above: Performed By: #### C BCA, 20556-9, CMP, , 40048-8 #### [facility] ([id number]) [address] [place] [address] 36431 Calcium [Mass/Vol] 8.4 mg/dL Low 8.5-10.5 [facility] Comment on above: Performed By: #### Casey BCA, 00315-9, CMP, , 83256-4 #### [facility] ([id number]) [address] [place] [address] 78357 Chloride [Moles/Vol] 95 mmol/L Low 98-109 [facility] Comment on above: Performed By: #### C BCA, 34585-5, CMP, , 86197-1 #### [facility] ([id number]) [address] [place] [address] 38908 CO2 [Moles/Vol] 30 mmol/L Normal 22-32 [facility] Comment on above: Performed By: #### C BCA, 69738-5, CMP, 10803-6, 75490-4 #### [facility] ([id number]) [address] [place] [address] 47066 Creatinine [Mass/Vol] 0.63 mg/dL Normal 0.40-1.00 [facility] Comment on above: Result Comment: METH OD TRACEABLE TO IDMS STANDARD Performed By: #### C BCA, 80601-7, CMP, 91499-5, 37448-2 #### [facility] ([id number]) [address] [place] [address] 19356 eGFR (CKD-EPI) NON-RACE DEPENDENT >90 Normal >59 [facility] Comment on above: Result Comment: Reported eGFR is based on the CKD-EPI 2020 equation that does not use a race coefficient. Performed By: #### C BCA, 87755-1, CMP, , 78311-3 #### [facility] ([id number]) [address] [place] [address] 89050 Glucose [Mass/Vol] 229 mg/dL High 65-99 [facility] Comment on above: Performed By: #### C BRITTNEY, 55351-1, CMP, , 57074-2 #### [facility] ([id number]) [address] [place] [address] 93116 Potassium [Moles/Vol] 2.8 mmol/L Low 3.5-5.0 [facility] Comment on above: Performed By: #### C BRITTNEY, 61499-4, CMP, , 87030-6 #### [facility] ([id number]) [address] [place] [address] 15075 Protein [Mass/Vol] 6.5 g/dL Normal 6.0-8.0 [facility] Comment on above: Performed By: #### C BCA, 81934-6, CMP, , 25217-9 #### [facility] ([id number]) [address] [place] [address] 00554 Sodium [Moles/Vol] 133 mmol/L Low 134-146 [facility] Comment on above: Performed By: #### C BCA, 74437-8, CMP, , 09428-0 #### [facility] ([id number]) [address] [place] [address] 15044 Urea nitrogen [Mass/Vol] 9 mg/dL Normal 5-27 [facility] Comment on above: Performed By: #### C BRITTNEY, 97555-0, CMP, 14725-3, 48988-0 #### [facility] ([id number]) [address] [place] [address] 47528 Glucose Glucometer (BldC) [M ass/Vol]on 01-17-2024 Glucose [Mass/Vol] 406 mg/dL Critically high 65-99 P [facility] Glucose [Mass/Vol] 296 mg/dL High 65-99 [facility] Glucose [Mass/Vol] 302 mg/dL High 65-99 [facility] MAGNESIUMon 01-17-2024 Magnesium [Mass/Vol] 2.1 mg/dL Normal 1.8-2.6 [facility] Comment on above: Performed By: #### C BRITTNEY, 45041-4, [facility], 54703-3, 28540-8 #### [facility] ([id number]) [address] [place] [address] 67282 POTASSIUMon 01-17-2024 Potassium [Moles/Vol] 3.7 mmol/L Normal 3.5-5.0 [facility] Comment on above: Performed By: #### C BRITTNEY, 08218-3, [facility], 36286-4, 41822-0 #### [facility] ([id number]) [address] [place] [address] 79121 URINE CULTUREon 01-17-2024 Bacteria identified Cx Nom (U) CULTURE RESULTS 10-50,000 ORGANISMS/mL NORMAL UROGENITAL AMILCAR Normal [facility] Comment on above: Performed By: #### C BRITTNEY, 91463-4, CMP, 84285-4, 51939-3 #### [facility] ([id number]) [address] [place] [address] 35948 CBC AND AUTO DIFFon 01-16-20 24 ABSOLUTE BASOPHIL 0.0 X10E9/L Normal 0.0-0.2 [facility] Comment on above: Performed By: #### C BRITTNEY, 80805-9, CMP, 44815-6, 67048-5 #### [facility] ([id number]) [address] [place] [address] 40093 ABSOLUTE NEUTROPHIL 10.0 X10E9/L High 1.5-6.6 [facility] Comment on above: Performed By: #### C BCA, 13782-4, CMP, 85129-6, 85745-7 #### [facility] ([id number]) [address] [place] [address] 16833 Basophils/100 WBC (Bld) 0.3 % Normal [facility] Comment on above: Performed By: #### Casey LUGO, 69140-1, CMP, , 01626-0 #### [facility] ([id number]) [address] [place] [address] 42054 Eosinophils (Bld) [#/Vol] 0.1 10*3/uL Normal 0.0-0.4 [facility] Comment on above: Performed By: #### Casey LUGO, 78672-3, CMP, 91192-6, 97448-7 #### [facility] ([id number]) [address] [place] [address] 46892 Eosinophils/100 WBC (Bld) 0.9 % Normal [facility] Comment on above: Performed By: #### Casey BCA, 46070-1, CMP, 06435-7, 83200-5 #### [facility] ([id number]) [address] [place] [address] 99731 Erythrocyte distribution width (RBC) [Ratio] 13.5 % Normal 11.5-15.0 [facility] Comment on above: Performed By: #### Casey LUGO, 30652-0, CMP, 90700-2, 09030-7 #### [facility] ([id number]) [address] [place] [address] 05746 Hematocrit (Bld) [Volume fraction] 49.5 % High 35-47 [facility] Comment on above: Performed By: #### Casey LUGO, 23003-2, CMP, 93503-8, 05586-4 #### [facility] ([id number]) [address] [place] [address] 35325 Hemoglobin (Bld) [Mass/Vol] 16.8 g/dL High 11.7-15.5 [facility] Comment on above: Performed By: #### Casey LUGO, 71911-2, CMP, 04114-7, 97715-2 #### [facility] ([id number]) [address] [place] [address] 04967 Lymphocytes (Bld) [#/Vol] 1.9 10*3/uL Normal 1.0-3.5 [facility] Comment on above: Performed By: #### Casey LUGO, 73380-4, [facility], , 56318-5 #### [facility] ([id number]) [address] [place] [address] 51096 Lymphocytes/100 WBC (Bld) 14.4 % Normal [facility] Comment on above: Performed By: #### Casey LUGO, 80223-8, CMP, , 82158-1 #### [facility] ([id number]) [address] [place] [address] 38412 MCH (RBC) [Entitic mass] 31.7 pg Normal 27-34 [facility] Comment on above: Performed By: #### Casey LUGO, 53794-6, CMP, 57232-9, 59835-1 #### [facility] ([id number]) [address] [place] [address] 99688 MCHC (RBC) [Mass/Vol] 33.9 g/dL Normal 32-36 [facility] Comment on above: Performed By: #### Casey LUGO, 24647-5, CMP, 58606-2, 76656-6 #### [facility] ([id number]) [address] [place] [address] 30875 MCV (RBC) [Entitic vol] 94 fL Normal 80-100 [facility] Comment on above: Performed By: #### Casey LUGO, 09826-0, CMP, 98536-0, 55573-3 #### [facility] ([id number]) [address] [place] [address] 39374 Monocytes (Bld) [#/Vol] 1.1 10*3/uL High 0-0.9 [facility] Comment on above: Performed By: #### Casey LUGO, 97871-8, CMP, 17664-4, 25387-5 #### [facility] ([id number]) [address] [place] [address] 55592 Monocytes/100 WBC (Bld) 8.6 % Normal [facility] Comment on above: Performed By: #### Casey LUGO, 13176-2, CMP, 27788-4, 17231-8 #### [facility] ([id number]) [address] [place] [address] 26175 Neutrophils/100 WBC (Bld) 75.8 % Normal [facility] Comment on above: Performed By: #### Casey BCA, 88779-6, CMP, 78635-6, 57720-2 #### [facility] ([id number]) [address] [place] [address] 95209 Platelet mean volume (Bld) [Entitic vol] 9.3 fL Normal 7-12 [facility] Comment on above: Performed By: #### Casey LUGO, 80078-8, CMP, 14829-9, 08477-8 #### [facility] ([id number]) [address] [place] [address] 52524 Platelets (Bld) [#/Vol] 254 10*3/uL Normal 150-450 [facility] Comment on above: Performed By: #### C BCA, 17652-8, CMP, 19899-6, 67161-2 #### [facility] ([id number]) [address] [place] [address] 29501 RBC COUNT 5.29 X10E12/L High 3.80-5.20 [facility] Comment on above: Performed By: #### Casey BCA, 61099-7, CMP, 87253-6, 18592-8 #### [facility] ([id number]) [address] [place] [address] 01124 WBC (Bld) [#/Vol] 13.2 10*3/uL High 4.0-11.0 [facility] Comment on above: Performed By: #### C BCA, 34764-6, CMP, 98733-3, 65192-1 #### [facility] ([id number]) [address] [place] [address] 91860 COMPREHENSIVE METABOLIC PANE Blayne 01-16-2024 Albumin [Mass/Vol] 3.5 g/dL Normal 3.2-5.3 [facility] Comment on above: Performed By: #### Casey BCA, 18008-8, CMP, 81612-2, 99259-9 #### [facility] ([id number]) [address] [place] [address] 52583 ALP [Catalytic activity/Vol] 106 U/L Normal 39-130 [facility] Comment on above: Performed By: #### Casey BCA, 74019-6, CMP, 72714-9, 98209-7 #### [facility] ([id number]) [address] [place] [address] 19452 ALT [Catalytic activity/Vol] 15 U/L Normal 0-31 [facility] Comment on above: Performed By: #### C BCA, 51301-1, CMP, 69919-0, 64070-4 #### [facility] ([id number]) [address] [place] [address] 17754 Anion gap [Moles/Vol] 10 mmol/L Normal 5-15 [facility] Comment on above: Performed By: #### C BCA, 81496-7, CMP, 52657-8, 24384-3 #### [facility] ([id number]) [address] [place] [address] 83288 AST [Catalytic activity/Vol] 13 U/L Normal 0-41 [facility] Comment on above: Performed By: #### Casey BCA, 05502-8, CMP, 11235-4, 45569-6 #### [facility] ([id number]) [address] [place] [address] 10389 Bilirubin [Mass/Vol] 0.7 mg/dL Normal 0.3-1.2 [facility] Comment on above: Performed By: #### C BCA, 96538-6, CMP, 55393-8, 35025-9 #### [facility] ([id number]) [address] [place] [address] 81560 Calcium [Mass/Vol] 8.4 mg/dL Low 8.5-10.5 [facility] Comment on above: Performed By: #### C BCA, 45631-2, CMP, 61158-3, 47467-0 #### [facility] ([id number]) [address] [place] [address] 72890 Chloride [Moles/Vol] 92 mmol/L Low 98-109 [facility] Comment on above: Performed By: #### C BCA, 89901-3, CMP, 09600-3, 22488-3 #### [facility] ([id number]) [address] [place] [address] 75012 CO2 [Moles/Vol] 28 mmol/L Normal 22-32 [facility] Comment on above: Performed By: #### C BRITTNEY, 18153-9, CMP, , 56866-0 #### [facility] ([id number]) [address] [place] [address] 58714 Creatinine [Mass/Vol] 0.77 mg/dL Normal 0.40-1.00 [facility] Comment on above: Result Comment: METH OD TRACEABLE TO IDMS STANDARD Performed By: #### C BRITTNEY, 70116-8, CMP, , 26159-4 #### [facility] ([id number]) [address] [place] [address] 54790 GFR/1.73 sq M.predicted among non-blacks MDRD (S/P/Bld) [Vol rate/Area] 86 mL/min/{1.73_m2} Normal >59 [facility] Comment on above: Result Comment: Reported eGFR is based on the CKD-EPI 2020 equation that does not use a race coefficient. Performed By: #### C BRITTNEY, 62197-7, CMP, , 60114-0 #### [facility] ([id number]) [address] [place] [address] 11831 Glucose [Mass/Vol] 512 mg/dL Critically high 65-[address] [facility] Comment on above: Performed By: #### C BRITTNEY, 60897-9, CMP, , 24478-7 #### [facility] ([id number]) [address] [place] [address] 17346 Potassium [Moles/Vol] 2.8 mmol/L Low 3.5-5.0 [facility] Comment on above: Performed By: #### C BRITTNEY, 05898-2, CMP, 75299-3, 25707-7 #### [facility] ([id number]) [address] [place] [address] 65388 Protein [Mass/Vol] 6.8 g/dL Normal 6.0-8.0 [facility] Comment on above: Performed By: #### C BCA, 59013-4, CMP, 27642-0, 87579-4 #### [facility] ([id number]) [address] [place] [address] 55808 Sodium [Moles/Vol] 130 mmol/L Low 134-146 [facility] Comment on above: Performed By: #### C BCA, 01542-4, CMP, 08458-1, 54858-0 #### [facility] ([id number]) [address] [place] [address] 76622 Urea nitrogen [Mass/Vol] 8 mg/dL Normal 5-27 [facility] Comment on above: Performed By: #### C BCA, 87892-5, CMP, 71634-2, 96217-6 #### [facility] ([id number]) [address] [place] [address] BRAIN WO CONTon CT BRAIN WO [...] Jones MD on 01/16/2024 2:11 PM Normal [facility] Glucose Glucometer (BldC) [M ass/Vol]on 01-16-2024 Glucose [Mass/Vol] 254 mg/dL High 65-99 [facility] Glucose [Mass/Vol] 265 mg/dL High 65-99 [facility] Glucose [Mass/Vol] 381 mg/dL High 65-99 [facility] Glucose [Mass/Vol] 373 mg/dL High 65-99 [facility] MAGNESIUMon 01-16-2024 Magnesium [Mass/Vol] 2.0 mg/dL Normal 1.8-2.6 [facility] Comment on above: Performed By: #### C BRITTNEY, 49741-4, SYED, 24396-8, 19294-3 #### [facility] ([id number]) [address] [place] [address] 23022 Procalcitonin IA [Mass/Vol]o n 01-16-2024 PROCALCITONIN 0.07 ng/mL High <0.05 [facility] Comment on above: Result Comment: NOTE <0.50 ng/mL - Low risk of severe sepsis and/or septic shock. <2.00 ng/mL - Recommend retesting within 6-24 hours. >2.00 ng/mL - High risk of sepsis and/or septic shock. Performed By: #### C BRITTNEY, 00796-2, SYED, 52048-3, 84386-6 #### [facility] ([id number]) [address] [place] [address] 63569 Troponin I.cardiac High sens itivity method [Mass/Vol]on 01-16-2024 1 HOUR TROP I, HIGH SENSITIVITY 5 ng/L Normal <16 [facility] Comment on above: Performed By: #### 8 9579-7 #### [facility] ([id number]) [address] [place] [address] 15439 TROPONIN I, HIGH SENSITIVITY 5 ng/L Normal <16 [facility] Comment on above: Performed By: #### C BRITTNEY, 72947-6, CMP, 31245-6, 62860-2 #### [facility] ([id number]) [address] [place] [address] 84385 URINALYSISon 01-16-2024 Bilirubin Ql (U) Negative Normal NEG [facility] Comment on above: Performed By: #### C BCA, 18958-8, CMP, 53186-2, 61333-4 #### [facility] ([id number]) [address] [place] [address] 80826 BLOOD/HGB Trace Abnormal NEG [facility] Comment on above: Performed By: #### C BCA, 19887-3, CMP, 29328-5, 81985-9 #### [facility] ([id number]) [address] [place] [address] 71974 Color (U) YELLOW Normal YELLOW [facility] Comment on above: Performed By: #### C BCA, 74253-3, CMP, 54190-8, 30550-1 #### [facility] ([id number]) [address] [place] [address] 70637 Glucose Ql (U) >1000 Abnormal NEG [facility] Comment on above: Performed By: #### C BCA, 20242-5, CMP, 79055-5, 79153-5 #### [facility] ([id number]) [address] [place] [address] 24445 Ketones Ql (U) Negative Normal NEG [facility] Comment on above: Performed By: #### C BCA, 97357-3, CMP, 90826-7, 21005-9 #### [facility] ([id number]) [address] [place] [address] 15062 Leukocyte esterase Test strip Ql (U) Negative Normal NEG [facility] Comment on above: Result Comment: HIGH CONCENTRATIONS OF GLUCOSE MAY DECREASE THE REACTIVITY OF THE DIPSTICK LEUKOCYTE TEST PAD. Performed By: #### C BRITTNEY, 76346-0, CMP, 42257-8, 06527-5 #### [facility] ([id number]) [address] [place] [address] 99333 Nitrite Ql (U) Negative Normal NEG [facility] Comment on above: Performed By: #### Casey BCA, 04353-2, CMP, 52991-6, 39503-7 #### [facility] ([id number]) [address] [place] [address] 30211 pH (U) 6.0 [pH] Normal 5.0-8.5 [facility] Comment on above: Performed By: #### Casey LUGO, 86216-7, CMP, 50135-3, 74753-2 #### [facility] ([id number]) [address] [place] [address] 04018 Protein Ql (U) Negative Normal NEG [facility] Comment on above: Performed By: #### Casey LUGO, 29292-7, CMP, 59472-6, 60262-6 #### [facility] ([id number]) [address] [place] [address] 86695 R.B.CELLS 6 /hpf High 0-5 [facility] Comment on above: Performed By: #### Casey LUGO, 83973-2, CMP, 50916-6, 16368-4 #### [facility] ([id number]) [address] [place] [address] 61013 Specific gravity (U) [Rel density] <1.005 Normal 1.003-1.035 [facility] Comment on above: Performed By: #### Casey BCA, 85473-1, CMP, 38962-5, 20665-2 #### [facility] ([id number]) [address] [place] [address] 48344 SQUAMOUS EPITHELIUM 2 /hpf Normal 0-5 [facility] Comment on above: Performed By: #### C BRITTNEY, 22931-4, CMP, 24400-4, 72919-6 #### [facility] ([id number]) [address] [place] [address] [place] [address] TURBIDITY CLEAR Normal CLEAR [facility] Comment on above: Performed By: #### C BRITTNEY, 59290-9, CMP, 33199-7, 30995-4 #### [facility] ([id number]) [address] [place] [address] [place] [address] Urobilinogen Qn (U) 0.2 {Beau'U}/dL Normal <1.1 [facility] Comment on above: Performed By: #### C BRITTNEY, 24005-0, CMP, 89618-4, 66545-3 #### [facility] ([id number]) [address] [place] [address] [place] [address] W.B.CELLS 2 /hpf Normal 0-5 [facility] Comment on above: Performed By: #### C BRITTNEY, 84354-7, [facility], 93299-6, 37995-4 #### [facility] ([id number]) [address] [place] [address] 19433 URN MACROSCOPIC NURon 2023 BILIRUBIN ANISHA Negative Normal NEG [facility] Comment on above: Performed By: #### N UM #### [facility] ([id number]) [address] [place] [address] [place] [address] BLOOD/HGB ANISHA Trace Abnormal NEG [facility] Comment on above: Performed By: #### N UM #### [facility] ([id number]) [address] [place] [address] [place] [address] GLUCOSE ANISHA >=1000 Abnormal NEG [facility] Comment on above: Performed By: #### N UM #### [facility] ([id number]) [address] [place] [address] 73830 KETONES ANISHA Negative Normal NEG [facility] Comment on above: Performed By: #### N UM #### [facility] ([id number]) [address] [place] [address] 49233 LEUKOCYTE ESTERASE ANISHA Trace Abnormal NEG [facility] Comment on above: Performed By: #### N UM #### [facility] ([id number]) [address] [place] [address] 10194 NITRITE ANISHA Negative Normal NEG [facility] Comment on above: Performed By: #### N UM #### [facility] ([id number]) [address] [place] [address] 21384 PH ANISHA 5.5 Normal 5.0-8.5 [facility] Comment on above: Performed By: #### N UM #### [facility] ([id number]) [address] [place] [address] 94006 PROTEIN ANISHA Negative Normal NEG [facility] Comment on above: Performed By: #### N UM #### [facility] ([id number]) [address] [place] [address] 04106 SPECIFIC GRAVITY ANISHA <=1.005 Normal 1.003-1.035 [facility] Comment on above: Performed By: #### N UM #### [facility] ([id number]) [address] [place] [address] 06401 UROBILINOGEN ANISHA 0.2 eu/dL Normal <1.1 [facility] Comment on above: Performed By: #### N UM #### [facility] ([id number]) [address] [place] [address] 76674 09-05-2023 36 Can order for lasix 20mg daily. Thanks [facility] 09-04-2023 36 Doesn't look like we have noted her to be on lasix since 01/2023. How often was she taking it? Was her PCP prescribing it? Normal [facility] Office Visiton 01-08-2023 Follow-up visit [id number] BarbyHayleyDenae E 1960 F Date Provider Department Center 01/08/2023 [id number]-MKGUMUNVZLORENZO ACE DAWSON [facility] Family History Problem Relation Age of Onset Stroke Father Family Status - Relation Status Age at Father Level of Service:81708 [place] OFFICE/OUTPATIENT ESTABLISHED MOD MDM 30-39 MIN Normal [facility] XR DEXA BONE DENSITYon 10-02 XR DEXA [...] - Moderate Fracture Risk Electronically authenticated by: ROBERT HART Date: 2022-10-02 12:08 Normal [facility] LIPID PROFILEon 08-09-2022 CHOL-HDL RATIO NORM SEE BELOW Normal [facility] Comment on above: Result Comment: 3.3 - 4.4 LOW RISK 4.4 - 7.1 AVERAGE RISK 7.1 - 11.0 MODERATE RISK >11.0 HIGH RISK Performed By: #### M ALBR #### [facility] [address] [place], [place] [address] Dr. Maru Disla Cholesterol [Mass/Vol] 110 mg/dL Normal <=200 [facility] Comment on above: Performed By: #### M ALBR #### [facility] [address] [place], [place] [address] Dr. Maru Disla Cholesterol in HDL [Mass/Vol] 38 mg/dL Critically low 40-60 [facility] Comment on above: Performed By: #### M ALBR #### [facility] [address] [place] [address] [address] Maru Disla Cholesterol in LDL [Mass/Vol] 52.4 mg/dL Normal [facility] Comment on above: Performed By: #### M ALBR #### [facility] [address] [place] [address] [address] Maru Disla Cholesterol.total/C holesterol in HDL [Mass ratio] 2.9 {ratio} Normal [facility] Comment on above: Performed By: #### M ALBR #### [facility] [address] [place] [address] Dr. Maru Disla HDL NORMAL > or = 60 mg/dl - LO W CARDIOVASCULAR RISK <40 mg/dl - HIGH CARDIOVASCULAR RISK Normal [facility] Comment on above: Performed By: #### M ALBR #### [facility] [address] [place] [address] [address] Maru Disla LDL CALC NORMAL SEE BELOW Normal [facility] Comment on above: Result Comment: <100 mg/dl OPTIMAL 100 - 129 mg/dl NEAR OR ABOVE OPTIMAL 130 - 159 mg/dl BORDERLINE HIGH 160 - 189 mg/dl HIGH >190 mg/dl VERY HIGH Performed By: #### M ALBR #### [facility] [address] [place] [address] Dr. Maru Disla Triglyceride [Mass/Vol] 98 mg/dL Normal <=150 [facility] Comment on above: Performed By: #### M ALBR #### [facility] [address] [place] [address] [address] Maru Disla VLDL CALC 19.6 mg/dL Normal [facility] Comment on above: Performed By: #### M ALBR #### [facility] [address] [place] [address] Dr. Maru Disla MICROALBUMIN, RAND URon 03-0 mALB <1.3 Normal <=30.0 [facility] Comment on above: Performed By: #### M ALBR #### [facility] [address] [place] [address] Dr. Maru Disla PROF 14(COMP METB)on 023 Albumin [Mass/Vol] 3.6 g/dL Normal 3.4-5.[address] [facility] Comment on above: Performed By: #### M ALBR #### [facility] [address] [place] [address] Dr. Maru Disla Albumin/Globulin [Mass ratio] 0.9 {ratio} Normal [facility] Comment on above: Performed By: #### M ALBR #### [facility] [address] [place] [address] Dr. Maru Disla ALP [Catalytic activity/Vol] 92 U/L Normal 46-116 [facility] Comment on above: Performed By: #### M ALBR #### [facility] [address] [place] [address] Dr. Maru Disla ALT [Catalytic activity/Vol] 22 U/L Normal 14-59 [facility] Comment on above: Performed By: #### M ALBR #### [facility] [address] [place] [address] Dr. Maru Disla Anion gap [Moles/Vol] 13.2 mmol/L Normal [facility] Comment on above: Performed By: #### M ALBR #### [facility] [address] [place] [address] Dr. Maru Disla AST [Catalytic activity/Vol] 17 U/L Normal 15-37 [facility] Comment on above: Performed By: #### M ALBR #### [facility] [address] [place] [address] Dr. Maru Disla Bilirubin [Mass/Vol] 0.4 mg/dL Normal 0.2-1.0 [facility] Comment on above: Performed By: #### M ALBR #### [facility] [address] [place] [address] Dr. Maru Disla Calcium [Mass/Vol] 9.3 mg/dL Normal 8.5-10.1 [facility] Comment on above: Performed By: #### M ALBR #### [facility] [address] [place] [address] [address] Maru Disla Chloride [Moles/Vol] 102 mmol/L Normal 98-107 [facility] Comment on above: Performed By: #### M ALBR #### [facility] [address] [place] [address] [address] Maru Disla CO2 [Moles/Vol] 29.7 mmol/L Normal 21.0-32.0 [facility] Comment on above: Performed By: #### M ALBR #### [facility] [address] [place] [address] [address] Maru Disla Creatinine [Mass/Vol] 0.74 mg/dL Normal 0.55-1.02 [facility] Comment on above: Performed By: #### M ALBR #### [facility] [address] [place] [address] Dr. Maru Disla EGFR-AF RWANDAN >60 Normal >=[address] [facility] Comment on above: Performed By: #### M ALBR #### [facility] [address] [place] [address] [address] Maru Disla EGFR-NON AF RWANDAN >60 Normal >=60 [facility] Comment on above: Performed By: #### M ALBR #### [facility] [address] [place] [address] Dr. Maru Disla Globulin (S) [Mass/Vol] 3.9 g/dL Normal [facility] Comment on above: Performed By: #### M ALBR #### [facility] [address] [place] [address] [address] Maru Disla Glucose [Mass/Vol] 271 mg/dL Critically high 74-106 [facility] Comment on above: Performed By: #### M ALBR #### [facility] [address] [place] [address] [address] Maru Disla Potassium [Moles/Vol] 3.9 mmol/L Normal 3.5-5.1 [facility] Comment on above: Performed By: #### M ALBR #### [facility] [address] [place] [address] Dr. Maru Disla Protein [Mass/Vol] 7.5 g/dL Normal 6.4-8.[address] [facility] Comment on above: Performed By: #### M ALBR #### [facility] [address] [address] [address] Maru Disla Sodium [Moles/Vol] 141 mmol/L Normal 136-[address] [facility] Comment on above: Performed By: #### M ALBR #### [facility] [address] [place] [address] [address] Maru Disla Urea nitrogen [Mass/Vol] 8.0 mg/dL Normal 7.0-18.0 [facility] Comment on above: Performed By: #### M ALBR #### [facility] [address] [place] [address] [address] Maru Disla Urea nitrogen/Creatinine [Mass ratio] 10.8 mg/mg Normal [facility] Comment on above: Performed By: #### M ALBR #### [facility] [address] [place] [address] [address] 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 LOCATION: [facility] BREAST COMPOSITION: Scattered areas fibroglandular density. [...] MD on 06/21/2022 at 10:10 Normal [facility] HEMOGLOBINon 06-20-2022 Hemoglobin (Bld) [Mass/Vol] 15.1 g/dL Normal 12.0-16.0 [facility] Comment on above: Performed By: #### B MP #### [facility] [address] [place] [address] Dr. Maru Disla BNPon 04-09-2022 Natriuretic peptide B (Bld) [Mass/Vol] 824.0 pg/mL Normal <=900.0 [facility] Comment on above: Performed By: #### M ALBR #### [facility] [address] [place] [address] Dr. Maru Disla CARDIAC BREANNE ADMITon 022 CK [Catalytic activity/Vol] 364 U/L Critically high 26-192 [facility] Comment on above: Performed By: #### P OCGLUC #### [facility] [address] [place] [address] Dr. Maru Disla CK.MB [Mass/Vol] 5.60 ng/mL Critically high <=3.60 [facility] Comment on above: Performed By: #### P OCGLUC #### [facility] [address] [place] [address] Dr. Maru Disla HSTROP 454.7 pg/mL Critically high 4.0-51.[address] [facility] Comment on above: Result Comment: CUT- OFF POINTS HAVE BEEN ESTABLISHED BASED ON THE FOURTH UNIVERSAL DEFINITIONS OF MYOCARDIAL INFARCTION. THE UPPER REFERENCE LIMIT (URL) OF TROPONIN, DEFINED THE 99TH PERCENTILE OF cTnI DISTRIBUTION IN A REFERENCE POPULATION, HAS BEEN CONFIRMED THE DECISION THRESHOLD FOR ME DIAGNOSIS. Performed By: #### P OCGLUC #### [facility] [address] [place] [address] Dr. Maru Disla REDD 137 ng/mL Critically high 9-82 [facility] Comment on above: Performed By: #### P OCGLUC #### [facility] [address] [place] [address] [address] Maru Disla CBC AUTO DIFFon 04-09-2022 BASO # 0.0 103/ul Normal 0.0-0.1 [facility] Comment on above: Performed By: #### A BG #### [facility] [address] [place] [address] Dr. Maru Disla Basophils/100 WBC (Bld) 0.2 % Normal 0.2-2.0 [facility] Comment on above: Performed By: #### A BG #### [facility] [address] [place] [address] Dr. Maru Disla EO # 0.0 103/ul Normal 0.0-0.7 [facility] Comment on above: Performed By: #### A BG #### [facility] [address] [place] [address] Dr. Maru Disla Eosinophils/100 WBC (Bld) 0.0 % Critically low 0.9-7.0 [facility] Comment on above: Performed By: #### A BG #### [facility] [address] [place] [address] Dr. Maru Disla Erythrocyte distribution width (RBC) [Ratio] 13.4 % Normal 11.0-15.0 [facility] Comment on above: Performed By: #### A BG #### [facility] [address] [place] [address] Dr. Maru Disla Hematocrit (Bld) [Volume fraction] 48.3 % Critically high 36.0-48.0 [facility] Comment on above: Performed By: #### A BG #### [facility] [address] [place] [address] Dr. Maru Disla Hemoglobin (Bld) [Mass/Vol] 15.3 g/dL Normal 12.0-16.0 [facility] Comment on above: Performed By: #### A BG #### [facility] [address] [place] [address] Dr. Maru Disla IG # 0.11 10e3/ul Critically high 0.00-0.03 [facility] Comment on above: Performed By: #### A BG #### [facility] [address] [place] [address] Dr. Maru Disla IG % 0.6 % Critically high 0.0-0.5 [facility] Comment on above: Performed By: #### A BG #### [facility] [address] [place] [address] Dr. Maru Disla LYMPH # 1.1 103/ul Critically low 1.2-3.8 [place] Comment on above: Performed By: #### A BG #### [facility] [address] [place] [address] Dr. Maru Disla Lymphocytes/100 WBC (Bld) 6.1 % Critically low 20.5-60.0 [facility] Comment on above: Performed By: #### A BG #### [facility] [address] [place] [address] Dr. Maru Disla MANUAL DIFF REQ NO Normal [facility] Comment on above: Performed By: #### A BG #### [facility] [address] [place] [address] Dr. Maru Disla MCH (RBC) [Entitic mass] 29.8 pg Normal 26.7-34.0 [facility] Comment on above: Performed By: #### A BG #### [facility] [address] [place] [address] Dr. Maru Disla MCHC (RBC) [Mass/Vol] 31.7 g/dL Normal 29.9-35.2 [facility] Comment on above: Performed By: #### A BG #### [facility] [address] [place] [address] Dr. Maru Disla MCV (RBC) [Entitic vol] 94.2 fL Normal 81.0-99.0 [facility] Comment on above: Performed By: #### A BG #### [facility] [address] [place] [address] Dr. Maru Disla MONO # 0.7 103/ul Normal 0.3-0.8 [facility] Comment on above: Performed By: #### A BG #### [facility] [address] [address] [address] Maru Disla Monocytes/100 WBC (Bld) 3.9 % Normal 1.7-12.0 [facility] Comment on above: Performed By: #### A BG #### [facility] [address] [address] [address] Maru Disla NEUT # 15.3 103/ul Critically high 1.4-6.[address] [facility] Comment on above: Performed By: #### A BG #### [facility] [address] [place] [address] Dr. Maru Disla Neutrophils/100 WBC (Bld) 89.2 % Critically high 43.0-75.0 [facility] Comment on above: Performed By: #### A BG #### [facility] [address] [place] [address] Dr. Maru Disla Platelet mean volume (Bld) [Entitic vol] 10.4 fL Normal 9.5-13.5 [facility] Comment on above: Performed By: #### A BG #### [facility] [address] [place] [address] Dr. Maru Disla PLT 311 103/ul Normal 150-450 [facility] Comment on above: Performed By: #### A BG #### [facility] [address] [place] [address] Dr. Maru Disla RBC 5.13 106/ul Normal 4.20-5.40 [facility] Comment on above: Performed By: #### A BG #### [facility] [address] [place] [address] Dr. Maru Disla WBC 17.2 103/ul Critically high 4.0-11.0 [facility] Comment on above: Performed By: #### A BG #### [facility] [address] [place] [address] Dr. Maru Disla ECHOCARDIO M/2D COMPLETEon 1 06-09-2021 ECHOCARDIO M/2D COMPLETE Patient: DENAE DIORRenae Exam Date: 04/09/2022 : 1960 Gender:F Ordering : DR TERI BLOCK . Admission #: [id number] Family : Order #: [id number] CLICK HERE TO VIEW EXAM ECHOCARDIOGRAM REPORT [...] Subramanian M.D. on 04/10/2022 at 15:44 Normal [facility] POINT OF CARE GLUCOSEon 11-0 Glucose [Mass/Vol] 171 mg/dL Critically high 74-106 [facility] Comment on above: Performed By: #### P OCGLUC #### [facility] [address] [address] [address] Maru Disla Glucose [Mass/Vol] 97 mg/dL Normal 74-[address] [facility] Comment on above: Performed By: #### M ALBR #### [facility] [address] [address] [address] Maru Disla PROF CHEM 8 (BAS METB)on Anion gap [Moles/Vol] 9.1 mmol/L Normal [facility] Comment on above: Performed By: #### P OCGLUC #### [facility] [address] [address] [address] Maru Disla Calcium [Mass/Vol] 8.7 mg/dL Normal 8.5-10.[address] [facility] Comment on above: Performed By: #### P OCGLUC #### [facility] [address] [address] [address] Maru Disla Chloride [Moles/Vol] 104 mmol/L Normal 98-107 [facility] Comment on above: Performed By: #### P OCGLUC #### [facility] [address] [address] [address] Maru Disla CO2 [Moles/Vol] 33.2 mmol/L Critically high 21.0-32.0 [facility] Comment on above: Performed By: #### P OCGLUC #### [facility] [address] [address] [address] Maru Disla Creatinine [Mass/Vol] 0.87 mg/dL Normal 0.55-1.02 [facility] Comment on above: Performed By: #### P OCGLUC #### [facility] [address] [address] [address] Maru Disla EGFR-AF RWANDAN >60 Normal >=[address] [facility] Comment on above: Performed By: #### P OCGLUC #### [facility] [address] [address] [address] Maru Disla EGFR-NON AF RWANDAN >60 Normal >=60 [facility] Comment on above: Performed By: #### P OCGLUC #### [facility] [address] [address] [address] Maru Disla Glucose [Mass/Vol] 115 mg/dL Critically high 74-106 [facility] Comment on above: Performed By: #### P OCGLUC #### [facility] [address] [address] [address] Maru Disla Potassium [Moles/Vol] 4.3 mmol/L Normal 3.5-5.1 [facility] Comment on above: Performed By: #### P OCGLUC #### [facility] [address] [address] [address] Maru Disla Sodium [Moles/Vol] 142 mmol/L Normal 136-[address] [facility] Comment on above: Performed By: #### P OCGLUC #### [facility] [address] [address] [address] Maru Disla Urea nitrogen [Mass/Vol] 36.0 mg/dL Critically high 7.0-18.0 [facility] Comment on above: Performed By: #### P OCGLUC #### [facility] [address] [place] [address] Dr. Maru Disla Urea nitrogen/Creatinine [Mass ratio] 41.4 mg/mg Normal [facility] Comment on above: Performed By: #### P OCGLUC #### [facility] [address] [place] [address] Dr. Maru Disla CARDIAC BREANNE 3-6on 2 CK [Catalytic activity/Vol] 381 U/L Critically high 26-192 [facility] Comment on above: Performed By: #### C MREP #### [facility] [address] [place] [address] Dr. Maru Disla CK.MB [Mass/Vol] 7.91 ng/mL Critically high <=3.60 [facility] Comment on above: Performed By: #### C MREP #### [facility] [address] [place] [address] Dr. Maru Disla HSTROP 766.1 pg/mL Critically high 4.0-51.3 [facility] Comment on above: Result Comment: CUT- OFF POINTS HAVE BEEN ESTABLISHED BASED ON THE FOURTH UNIVERSAL DEFINITIONS OF MYOCARDIAL INFARCTION. THE UPPER REFERENCE LIMIT (URL) OF TROPONIN, DEFINED THE 99TH PERCENTILE OF cTnI DISTRIBUTION IN A REFERENCE POPULATION, HAS BEEN CONFIRMED THE DECISION THRESHOLD FOR ME DIAGNOSIS. Performed By: #### C MREP #### [facility] [address] [place] [address] Dr. Maru Disla CK [Catalytic activity/Vol] 356 U/L Critically high 26-192 [facility] Comment on above: Performed By: #### C MREP #### [facility] [address] [place] [address] Dr. Maru Disla CK.MB [Mass/Vol] 8.66 ng/mL Critically high <=3.60 [facility] Comment on above: Performed By: #### C MREP #### [facility] [address] [address] [address] Maru Disla HSTROP 610.6 pg/mL Critically high 4.0-51.3 [facility] Comment on above: Result Comment: CUT- OFF POINTS HAVE BEEN ESTABLISHED BASED ON THE FOURTH UNIVERSAL DEFINITIONS OF MYOCARDIAL INFARCTION. THE UPPER REFERENCE LIMIT (URL) OF TROPONIN, DEFINED THE 99TH PERCENTILE OF cTnI DISTRIBUTION IN A REFERENCE POPULATION, HAS BEEN CONFIRMED THE DECISION THRESHOLD FOR ME DIAGNOSIS. Performed By: #### C MREP #### [facility] [address] [address] [address] Maru Disla CARDIAC BREANNE ADMITon 022 CK [Catalytic activity/Vol] 381 U/L Critically high 26-192 [facility] Comment on above: Performed By: #### C MADM #### [facility] [address] [address] [address] Maru Disla CK.MB [Mass/Vol] 8.07 ng/mL Critically high <=3.60 [facility] Comment on above: Performed By: #### C MADM #### [facility] [address] [address] [address] Maru Disla HSTROP 220.2 pg/mL Critically high 4.0-51.3 [facility] Comment on above: Result Comment: CUT- OFF POINTS HAVE BEEN ESTABLISHED BASED ON THE FOURTH UNIVERSAL DEFINITIONS OF MYOCARDIAL INFARCTION. THE UPPER REFERENCE LIMIT (URL) OF TROPONIN, DEFINED THE 99TH PERCENTILE OF cTnI DISTRIBUTION IN A REFERENCE POPULATION, HAS BEEN CONFIRMED THE DECISION THRESHOLD FOR ME DIAGNOSIS. Performed By: #### C MADM #### [facility] [address] [address] [address] Maru Disla REDD 269 ng/mL Critically high 9-82 [facility] Comment on above: Performed By: #### C MADM #### [facility] [address] [address] [address] Maru Disla CBC AUTO DIFFon 04-08-2022 BASO # 0.0 103/ul Normal 0.0-0.1 [facility] Comment on above: Performed By: #### M ALBR #### [facility] [address] [address] [address] Maru Disla Basophils/100 WBC (Bld) 0.2 % Normal 0.2-2.0 [facility] Comment on above: Performed By: #### M ALBR #### [facility] [address] [place] [address] Dr. Maru Disla EO # 0.0 103/ul Normal 0.0-0.7 [facility] Comment on above: Performed By: #### M ALBR #### [facility] [address] [place] [address] Dr. Maru Disla Eosinophils/100 WBC (Bld) 0.0 % Critically low 0.9-7.0 [facility] Comment on above: Performed By: #### M ALBR #### [facility] [address] [place] [address] Dr. Maru Disla Erythrocyte distribution width (RBC) [Ratio] 13.4 % Normal 11.0-15.0 [facility] Comment on above: Performed By: #### M ALBR #### [facility] [address] [place] [address] Dr. Maru Disla Hematocrit (Bld) [Volume fraction] 52.7 % Critically high 36.0-48.0 [facility] Comment on above: Performed By: #### M ALBR #### [facility] [address] [place] [address] Dr. Maru Disla Hemoglobin (Bld) [Mass/Vol] 16.8 g/dL Critically high 12.0-16.0 [facility] Comment on above: Performed By: #### M ALBR #### [facility] [address] [place] [address] Dr. Maru Disla IG # 0.13 10e3/ul Critically high 0.00-0.03 [facility] Comment on above: Performed By: #### M ALBR #### [facility] [address] [place] [address] Dr. Maru Disla IG % 0.6 % Critically high 0.0-0.5 [facility] Comment on above: Performed By: #### M ALBR #### [facility] [address] [address] [address] Maru Disla LYMPH # 0.8 103/ul Critically low 1.2-3.8 [place] Comment on above: Performed By: #### M ALBR #### [facility] [address] [address] [address] Maru Disla Lymphocytes/100 WBC (Bld) 3.4 % Critically low 20.5-60.0 [facility] Comment on above: Performed By: #### M ALBR #### [facility] [address] [place] [address] Dr. Maru Disla MANUAL DIFF REQ NO Normal [facility] Comment on above: Performed By: #### M ALBR #### [facility] [address] [place] [address] Dr. Maru Disla MCH (RBC) [Entitic mass] 29.4 pg Normal 26.7-34.0 [facility] Comment on above: Performed By: #### M ALBR #### [facility] [address] [place] [address] Dr. Maru Disla MCHC (RBC) [Mass/Vol] 31.9 g/dL Normal 29.9-35.2 [facility] Comment on above: Performed By: #### M ALBR #### [facility] [address] [place] [address] Dr. Maru Disla MCV (RBC) [Entitic vol] 92.1 fL Normal 81.0-99.0 [facility] Comment on above: Performed By: #### M ALBR #### [facility] [address] [place] [address] Dr. Maru Disla MONO # 0.8 103/ul Normal 0.3-0.8 [facility] Comment on above: Performed By: #### M ALBR #### [facility] [address] [address] [address] Maru Disla Monocytes/100 WBC (Bld) 3.4 % Normal 1.7-12.0 [facility] Comment on above: Performed By: #### M ALBR #### [facility] [address] [address] [address] Maru Disla NEUT # 21.8 103/ul Critically high 1.4-6.[address] [facility] Comment on above: Performed By: #### M ALBR #### [facility] [address] [address] [address] Maru Disla Neutrophils/100 WBC (Bld) 92.4 % Critically high 43.0-75.0 [facility] Comment on above: Performed By: #### M ALBR #### [facility] [address] [address] [address] Maru Disla Platelet mean volume (Bld) [Entitic vol] 10.4 fL Normal 9.5-13.5 [facility] Comment on above: Performed By: #### M ALBR #### [facility] [address] [address] [address] Maru Disla PLT 335 103/ul Normal 150-450 [facility] Comment on above: Performed By: #### M ALBR #### [facility] [address] [address] [address] Maru Disla RBC 5.72 106/ul Critically high 4.20-5.[address] [facility] Comment on above: Performed By: #### M ALBR #### [facility] [address] [address] [address] Maru Disla WBC 23.5 103/ul Critically high 4.0-11.[address] [facility] Comment on above: Performed By: #### M ALBR #### [facility] [address] [address] [address] Maru Disla POINT OF CARE GLUCOSEon Glucose [Mass/Vol] 275 mg/dL Critically high 74-106 [facility] Comment on above: Performed By: #### P OCGLUC #### [facility] [address] [address] [address] Maru Disla Glucose [Mass/Vol] 161 mg/dL Critically high 74-106 [facility] Comment on above: Performed By: #### B MP #### [facility] [address] [place] [address] Dr. Maru Disla Glucose [Mass/Vol] 140 mg/dL Critically high -106 [facility] Comment on above: Performed By: #### P OCGLUC #### [facility] [address] [address] [address] Maru Disla Glucose [Mass/Vol] 219 mg/dL Critically high -106 [facility] Comment on above: Performed By: #### P OCGLUC #### [facility] [address] [place] [address] Dr. Maru Disla PROF CHEM 8 (BAS METB)on Anion gap [Moles/Vol] 14.0 mmol/L Normal [facility] Comment on above: Performed By: #### M ALBR #### [facility] [address] [place] [address] Dr. Maru Disla Calcium [Mass/Vol] 9.3 mg/dL Normal 8.5-10.[address] [facility] Comment on above: Performed By: #### M ALBR #### [facility] [address] [place] [address] Dr. Maru Disla Chloride [Moles/Vol] 98 mmol/L Normal 98-107 [facility] Comment on above: Performed By: #### M ALBR #### [facility] [address] [place] [address] Dr. Maru Disla CO2 [Moles/Vol] 30.5 mmol/L Normal 21.0-32.[address] [facility] Comment on above: Performed By: #### M ALBR #### [facility] [address] [place] [address] Dr. Maru Disla Creatinine [Mass/Vol] 1.09 mg/dL Critically high 0.55-1.02 [facility] Comment on above: Performed By: #### M ALBR #### [facility] [address] [place] [address] Dr. Maru Disla EGFR-AF RWANDAN >60 Normal >=[address] [facility] Comment on above: Performed By: #### M ALBR #### [facility] [address] [address] [address] Maru Disla EGFR-NON AF RWANDAN 51 mL/min/1.73m2 Critically low >=60 [facility] Comment on above: Performed By: #### M ALBR #### [facility] [address] [address] [address] Maru Disla Glucose [Mass/Vol] 242 mg/dL Critically high 74-106 [facility] Comment on above: Performed By: #### M ALBR #### [facility] [address] [address] [address] Maru Disla Potassium [Moles/Vol] 3.5 mmol/L Normal 3.5-5.1 [facility] Comment on above: Performed By: #### M ALBR #### [facility] [address] [address] [address] Maru Disla Sodium [Moles/Vol] 139 mmol/L Normal 136-[address] [facility] Comment on above: Performed By: #### M ALBR #### [facility] [address] [address] [address] Maru Disla Urea nitrogen [Mass/Vol] 32.0 mg/dL Critically high 7.0-18.0 [facility] Comment on above: Performed By: #### M ALBR #### [facility] [address] [address] [address] Maru Disla Urea nitrogen/Creatinine [Mass ratio] 29.4 mg/mg Normal [facility] Comment on above: Performed By: #### M ALBR #### [facility] [address] [address] [address] Maru Disla CBC AUTO DIFFon 04-07-2022 BASO # 0.0 103/ul Normal 0.0-0.1 [facility] Comment on above: Performed By: #### P OCGLUC #### [facility] [address] [address] [address] Maru Disla Basophils/100 WBC (Bld) 0.2 % Normal 0.2-2.0 [facility] Comment on above: Performed By: #### P OCGLUC #### [facility] [address] [place] [address] Dr. Maru Disla EO # 0.0 103/ul Normal 0.0-0.7 [facility] Comment on above: Performed By: #### P OCGLUC #### [facility] [address] [place] [address] Dr. Maru Disla Eosinophils/100 WBC (Bld) 0.0 % Critically low 0.9-7.0 [facility] Comment on above: Performed By: #### P OCGLUC #### [facility] [address] [place] [address] Dr. Maru Disla Erythrocyte distribution width (RBC) [Ratio] 13.6 % Normal 11.0-15.0 [facility] Comment on above: Performed By: #### P OCGLUC #### [facility] [address] [place] [address] Dr. Maru Disla Hematocrit (Bld) [Volume fraction] 48.1 % Critically high 36.0-48.0 [facility] Comment on above: Performed By: #### P OCGLUC #### [facility] [address] [place] [address] Dr. Maru Disla Hemoglobin (Bld) [Mass/Vol] 14.7 g/dL Normal 12.0-16.0 [facility] Comment on above: Performed By: #### P OCGLUC #### [facility] [address] [place] [address] Dr. Maru Disla IG # 0.16 10e3/ul Critically high 0.00-0.03 [facility] Comment on above: Performed By: #### P OCGLUC #### [facility] [address] [place] [address] Dr. Maru Disla IG % 0.6 % Critically high 0.0-0.5 [facility] Comment on above: Performed By: #### P OCGLUC #### [facility] [address] [place] [address] Dr. Maru Disla LYMPH # 1.0 103/ul Critically low 1.2-3.8 [facility] Comment on above: Performed By: #### P OCGLUC #### [facility] [address] [place] [address] Dr. Maru Disla Lymphocytes/100 WBC (Bld) 4.1 % Critically low 20.5-60.0 [facility] Comment on above: Performed By: #### P OCGLUC #### [facility] [address] [place] [address] Dr. Maru Disla MANUAL DIFF REQ NO Normal [facility] Comment on above: Performed By: #### P OCGLUC #### [facility] [address] [place] [address] Dr. Maru Disla MCH (RBC) [Entitic mass] 29.4 pg Normal 26.7-34.0 [facility] Comment on above: Performed By: #### P OCGLUC #### [facility] [address] [place] [address] Dr. Maru Disla MCHC (RBC) [Mass/Vol] 30.6 g/dL Normal 29.9-35.2 [facility] Comment on above: Performed By: #### P OCGLUC #### [facility] [address] [place] [address] Dr. Maru Disla MCV (RBC) [Entitic vol] 96.2 fL Normal 81.0-99.0 [facility] Comment on above: Performed By: #### P OCGLUC #### [facility] [address] [place] [address] Dr. Maru Disla MONO # 0.8 103/ul Normal 0.3-0.8 [facility] Comment on above: Performed By: #### P OCGLUC #### [facility] [address] [place] [address] Dr. Maru Disla Monocytes/100 WBC (Bld) 3.2 % Normal 1.7-12.0 [facility] Comment on above: Performed By: #### P OCGLUC #### [facility] [address] [place] [address] Dr. Maru Disla NEUT # 23.1 103/ul Critically high 1.4-6.[address] [facility] Comment on above: Performed By: #### P OCGLUC #### [facility] [address] [place] [address] Dr. Maru Disla Neutrophils/100 WBC (Bld) 91.9 % Critically high 43.0-75.0 [facility] Comment on above: Performed By: #### P OCGLUC #### [facility] [address] [address] [address] Maru Disla Platelet mean volume (Bld) [Entitic vol] 10.5 fL Normal 9.5-13.5 [facility] Comment on above: Performed By: #### P OCGLUC #### [facility] [address] [place] [address] Dr. Maru Disla PLT 300 103/ul Normal 150-450 [facility] Comment on above: Performed By: #### P OCGLUC #### [facility] [address] [place] [address] Dr. Maru Disla RBC 5.00 106/ul Normal 4.20-5.40 [facility] Comment on above: Performed By: #### P OCGLUC #### [facility] [address] [place] [address] Dr. aMru Disla WBC 25.1 103/ul Critically high 4.0-11.[address] [facility] Comment on above: Performed By: #### P OCGLUC #### [facility] [address] [place] [address] Dr. Maru Disla POINT OF CARE GLUCOSEon 11-0 Glucose [Mass/Vol] 247 mg/dL Critically high 74-106 [facility] Comment on above: Performed By: #### B MP #### [facility] [address] [place] [address] Dr. Maru Disla Glucose [Mass/Vol] 182 mg/dL Critically high 74-106 [facility] Comment on above: Performed By: #### A BG #### [facility] [address] [place] [address] Dr. Maru Disla Glucose [Mass/Vol] 177 mg/dL Critically high 74-106 [facility] Comment on above: Performed By: #### P OCGLUC #### [facility] [address] [place] [address] Dr. Maru Disla Glucose [Mass/Vol] 191 mg/dL Critically high 74-106 [facility] Comment on above: Performed By: #### P OCGLUC #### [facility] [address] [place] [address] Dr. Maru Disla PROF CHEM 8 (BAS METB)on Anion gap [Moles/Vol] 11.4 mmol/L Normal [facility] Comment on above: Performed By: #### M ALBR #### [facility] [address] [place] [address] Dr. Maru Disla Calcium [Mass/Vol] 8.9 mg/dL Normal 8.5-10.[address] [facility] Comment on above: Performed By: #### M ALBR #### [facility] [address] [place] [address] Dr. Maru Disla Chloride [Moles/Vol] 108 mmol/L Critically high 98-107 [facility] Comment on above: Performed By: #### M ALBR #### [facility] [address] [place] [address] Dr. Maru Disla CO2 [Moles/Vol] 27.9 mmol/L Normal 21.0-32.[address] [facility] Comment on above: Performed By: #### M ALBR #### [facility] [address] [place] [address] Dr. Maru Disla Creatinine [Mass/Vol] 0.84 mg/dL Normal 0.55-1.02 [facility] Comment on above: Performed By: #### M ALBR #### [facility] [address] [place] [address] Dr. Maru Disla EGFR-AF RWANDAN >60 Normal >=[address] [facility] Comment on above: Performed By: #### M ALBR #### [facility] [address] [place] [address] Dr. Maru Disla EGFR-NON AF RWANDAN >60 Normal >=60 [facility] Comment on above: Performed By: #### M ALBR #### [facility] [address] [place] [address] Dr. Maru Disla Glucose [Mass/Vol] 202 mg/dL Critically high 74-106 [facility] Comment on above: Performed By: #### M ALBR #### [facility] [address] [place] [address] Dr. Maru Disla Potassium [Moles/Vol] 4.3 mmol/L Normal 3.5-5.1 [facility] Comment on above: Performed By: #### M ALBR #### [facility] [address] [place] [address] Dr. Maru Disla Sodium [Moles/Vol] 143 mmol/L Normal 136-[address] [facility] Comment on above: Performed By: #### M ALBR #### [facility] [address] [place] [address] Dr. Maru Disla Urea nitrogen [Mass/Vol] 26.0 mg/dL Critically high 7.0-18.0 [facility] Comment on above: Performed By: #### M ALBR #### [facility] [address] [place] [address] Dr. Maru Disla Urea nitrogen/Creatinine [Mass ratio] 31.0 mg/mg Normal [facility] Comment on above: Performed By: #### M ALBR #### [facility] [address] [place] [address] Dr. Maru Disla CBC AUTO DIFFon 04-06-2022 BASO # 0.0 103/ul Normal 0.0-0.1 [facility] Comment on above: Performed By: #### B MP #### [facility] [address] [place] [address] Dr. Maru Disla Basophils/100 WBC (Bld) 0.1 % Critically low 0.2-2.0 [facility] Comment on above: Performed By: #### B MP #### [facility] [address] [place] [address] Dr. Maru Disla EO # 0.0 103/ul Normal 0.0-0.7 [facility] Comment on above: Performed By: #### B MP #### [facility] [address] [place] [address] Dr. Maru Disla Eosinophils/100 WBC (Bld) 0.1 % Critically low 0.9-7.0 [facility] Comment on above: Performed By: #### B MP #### [facility] [address] [place] [address] Dr. Maru Disla Erythrocyte distribution width (RBC) [Ratio] 13.4 % Normal 11.0-15.0 [facility] Comment on above: Performed By: #### B MP #### [facility] [address] [place] [address] Dr. Maru Disla Hematocrit (Bld) [Volume fraction] 48.5 % Critically high 36.0-48.0 [facility] Comment on above: Performed By: #### B MP #### [facility] [address] [place] [address] Dr. Maru Disla Hemoglobin (Bld) [Mass/Vol] 15.5 g/dL Normal 12.0-16.0 [facility] Comment on above: Performed By: #### B MP #### [facility] [address] [place] [address] Dr. Maru Disla IG # 0.09 10e3/ul Critically high 0.00-0.03 [facility] Comment on above: Performed By: #### B MP #### [facility] [address] [place] [address] Dr. Maru Disla IG % 0.5 % Normal 0.0-0.5 [facility] Comment on above: Performed By: #### B MP #### [facility] [address] [place] [address] Dr. Maru Disla LYMPH # 0.9 103/ul Critically low 1.2-3.8 [place] Comment on above: Performed By: #### B MP #### [facility] [address] [place] [address] Dr. Maru Disla Lymphocytes/100 WBC (Bld) 4.5 % Critically low 20.5-60.0 [facility] Comment on above: Performed By: #### B MP #### [facility] [address] [place] [address] Dr. Maru Disla MANUAL DIFF REQ NO Normal [facility] Comment on above: Performed By: #### B MP #### [facility] [address] [place] [address] Dr. Maru Disla MCH (RBC) [Entitic mass] 30.0 pg Normal 26.7-34.0 [facility] Comment on above: Performed By: #### B MP #### [facility] [address] [place] [address] Dr. Maru Disla MCHC (RBC) [Mass/Vol] 32.0 g/dL Normal 29.9-35.2 [facility] Comment on above: Performed By: #### B MP #### [facility] [address] [place] [address] Dr. Maru Disla MCV (RBC) [Entitic vol] 93.8 fL Normal 81.0-99.0 [facility] Comment on above: Performed By: #### B MP #### [facility] [address] [place] [address] Dr. Maru Disla MONO # 0.7 103/ul Normal 0.3-0.8 [facility] Comment on above: Performed By: #### B MP #### [facility] [address] [place] [address] Dr. Maru Disla Monocytes/100 WBC (Bld) 3.5 % Normal 1.7-12.0 [facility] Comment on above: Performed By: #### B MP #### [facility] [address] [place] [address] Dr. Maru Disla NEUT # 18.2 103/ul Critically high 1.4-6.[address] [facility] Comment on above: Performed By: #### B MP #### [facility] [address] [place] [address] Dr. Maru Disla Neutrophils/100 WBC (Bld) 91.3 % Critically high 43.0-75.0 [facility] Comment on above: Performed By: #### B MP #### [facility] [address] [address] [address] Maru Disla Platelet mean volume (Bld) [Entitic vol] 11.2 fL Normal 9.5-13.5 [facility] Comment on above: Performed By: #### B MP #### [facility] [address] [address] [address] Maru Disla PLT 232 103/ul Normal 150-450 [facility] Comment on above: Performed By: #### B MP #### [facility] [address] [address] [address] Maru Disla RBC 5.17 106/ul Normal 4.20-5.40 [facility] Comment on above: Performed By: #### B MP #### [facility] [address] [place] [address] Dr. Maru Disla WBC 19.9 103/ul Critically high 4.0-11.[address] [facility] Comment on above: Performed By: #### B MP #### [facility] [address] [address] [address] Maru Disla POINT OF CARE GLUCOSEon 11- Glucose [Mass/Vol] 199 mg/dL Critically high 74-106 [facility] Comment on above: Performed By: #### P OCGLUC #### [facility] [address] [place] [address] Dr. Maru Disla Glucose [Mass/Vol] 109 mg/dL Critically high 74-106 [facility] Comment on above: Performed By: #### A BG #### [facility] [address] [address] [address] Maru Disla Glucose [Mass/Vol] 253 mg/dL Critically high -106 [facility] Comment on above: Performed By: #### P OCGLUC #### [facility] [address] [place] [address] Dr. Maru Dsila Glucose [Mass/Vol] 194 mg/dL Critically high -106 [facility] Comment on above: Performed By: #### B MP #### [facility] [address] [address] [address] Maru Disla PROF CHEM 8 (BAS METB)on Anion gap [Moles/Vol] 11.2 mmol/L Normal [facility] Comment on above: Performed By: #### B MP #### [facility] [address] [address] [address] Maru Disla Calcium [Mass/Vol] 8.8 mg/dL Normal 8.5-10.[address] [facility] Comment on above: Performed By: #### B MP #### [facility] [address] [place] [address] Dr. Maru Disla Chloride [Moles/Vol] 105 mmol/L Normal 98-107 [facility] Comment on above: Performed By: #### B MP #### [facility] [address] [place] [address] Dr. Maru Disla CO2 [Moles/Vol] 26.8 mmol/L Normal 21.0-32.[address] [facility] Comment on above: Performed By: #### B MP #### [facility] [address] [place] [address] Dr. Maru Disla Creatinine [Mass/Vol] 0.66 mg/dL Normal 0.55-1.02 [facility] Comment on above: Performed By: #### B MP #### [facility] [address] [place] [address] Dr. Maru Disla EGFR-AF RWANDAN >60 Normal >=[address] [facility] Comment on above: Performed By: #### B MP #### [facility] [address] [address] [address] Maru Disla EGFR-NON AF RWANDAN >60 Normal >=60 [facility] Comment on above: Performed By: #### B MP #### [facility] [address] [place] [address] Dr. Maru Disla Glucose [Mass/Vol] 191 mg/dL Critically high 74-106 [facility] Comment on above: Performed By: #### B MP #### [facility] [address] [address] [address] Maru Disla Potassium [Moles/Vol] 5.0 mmol/L Normal 3.5-5.1 [facility] Comment on above: Performed By: #### B MP #### [facility] [address] [address] [address] Maru Disla Sodium [Moles/Vol] 138 mmol/L Normal 136-145 [facility] Comment on above: Performed By: #### B MP #### [facility] [address] [address] [address] Maru Disla Urea nitrogen [Mass/Vol] 21.0 mg/dL Critically high 7.0-18.0 [facility] Comment on above: Performed By: #### B MP #### [facility] [address] [address] [address] Maru Disla Urea nitrogen/Creatinine [Mass ratio] 31.8 mg/mg Normal [facility] Comment on above: Performed By: #### B MP #### [facility] [address] [address] [address] Maru Disla XR CHEST 2 Von [...] CORINE ANGELA Date: 2022-04-06 07:14 Normal [facility] BLOOD GASES BTYon 04-05-2022 02 MODE NASAL CANNULA Normal [facility] Comment on above: Performed By: #### A BG #### [facility] [address] [address] [address] Maru Disla ALLENS TEST Positive Normal [facility] Comment on above: Performed By: #### A BG #### [facility] [address] [place] [address] Dr. Maru Disla Base excess Calc (Bld) [Moles/Vol] -1.6000 mmol/L Normal -2.0-2.0 [facility] Comment on above: Performed By: #### A BG #### [facility] [address] [place] [address] Dr. Maru Disla [facility] Comment on above: Performed By: #### A BG #### [facility] [address] [address] [address] Maru Disla CPAP [facility] Comment on above: Performed By: #### A BG #### [facility] [address] [place] [address] Dr. Maru Disla FIO2 [facility] Comment on above: Performed By: #### A BG #### [facility] [address] [place] [address] Dr. Maru Disla HCO3 (Bld) [Moles/Vol] 24.0 mmol/L Normal 22.0-26.0 [facility] Comment on above: Performed By: #### A BG #### [facility] [address] [place] [address] Dr. Maru Disla LPM 2 [facility] Comment on above: Performed By: #### A BG #### [facility] [address] [place] [address] Dr. Maru Disla MINUTE VOLUME Normal [facility] Comment on above: Performed By: #### A BG #### [facility] [address] [place] [address] Dr. Maru Disla Oxygen (Bld) [Partial pressure] 56.1 mm[Hg] Critically low 80.0-100.0 [facility] Comment on above: Performed By: #### A BG #### [facility] [address] [place] [address] Dr. Maru Disla Oxygen saturation in Blood 89.9 % Critically low 95.0-100.0 [facility] Comment on above: Performed By: #### A BG #### [facility] [address] [address] [address] Maru Disla PCO2 43.3 mmHg Normal 35.0-45.0 [facility] Comment on above: Performed By: #### A BG #### [facility] [address] [address] [address] Maru Disla [facility] Comment on above: Performed By: #### A BG #### [facility] [address] [address] [address] Maru Disla pH (Bld) 7.352 [pH] Normal 7.350-7.450 [facility] Comment on above: Performed By: #### A BG #### [facility] [address] [place] [address] Dr. Maru Disla [facility] Comment on above: Performed By: #### A BG #### [facility] [address] [place] [address] Dr. Maru Disla [facility] Comment on above: Performed By: #### A BG #### [facility] [address] [place] [address] Dr. Maru Disla PUNCTURE SITE LR [facility] Comment on above: Performed By: #### A BG #### [facility] [address] [place] [address] Dr. Maru Disla RATE [facility] Comment on above: Performed By: #### A BG #### [facility] [address] [place] [address] Dr. Maru Disla VENT MODE [facility] Comment on above: Performed By: #### A BG #### [facility] [address] [place] [address] Dr. Maru Disla [facility] Comment on above: Performed By: #### A BG #### [facility] [address] [place] [address] Dr. Maru Disla BNPon 04-05-2022 Natriuretic peptide B (Bld) [Mass/Vol] 471.0 pg/mL Normal <=900.0 [facility] Comment on above: Performed By: #### P OCGLUC #### [facility] [address] [place] [address] Dr. Maru Disla CBC AUTO DIFFon 04-05-2022 BASO # 0.0 103/ul Normal 0.0-0.1 [facility] Comment on above: Performed By: #### B MP #### [facility] [address] [place] [address] Dr. Maru Disla Basophils/100 WBC (Bld) 0.3 % Normal 0.2-2.0 [facility] Comment on above: Performed By: #### B MP #### [facility] [address] [place] [address] Dr. Maru Disla EO # 0.0 103/ul Normal 0.0-0.7 [facility] Comment on above: Performed By: #### B MP #### [facility] [address] [place] [address] Dr. Maru Disla Eosinophils/100 WBC (Bld) 0.0 % Critically low 0.9-7.0 [facility] Comment on above: Performed By: #### B MP #### [facility] [address] [place] [address] Dr. Maru Disla Erythrocyte distribution width (RBC) [Ratio] 13.2 % Normal 11.0-15.0 [facility] Comment on above: Performed By: #### B MP #### [facility] [address] [place] [address] Dr. Maru Disla Hematocrit (Bld) [Volume fraction] 52.3 % Critically high 36.0-48.0 [facility] Comment on above: Performed By: #### B MP #### [facility] [address] [place] [address] Dr. Maru Disla Hemoglobin (Bld) [Mass/Vol] 16.6 g/dL Critically high 12.0-16.0 [facility] Comment on above: Performed By: #### B MP #### [facility] [address] [place] [address] Dr. Maru Disla IG # 0.05 10e3/ul Critically high 0.00-0.03 [facility] Comment on above: Performed By: #### B MP #### [facility] [address] [place] [address] Dr. Maru Disla IG % 0.4 % Normal 0.0-0.5 [facility] Comment on above: Performed By: #### B MP #### [facility] [address] [place] [address] Dr. Maru Disla LYMPH # 1.5 103/ul Normal 1.2-3.8 [facility] Comment on above: Performed By: #### B MP #### [facility] [address] [place] [address] Dr. Maru Disla Lymphocytes/100 WBC (Bld) 10.7 % Critically low 20.5-60.0 [facility] Comment on above: Performed By: #### B MP #### [facility] [address] [place] [address] Dr. Maru Disla MANUAL DIFF REQ NO Normal [facility] Comment on above: Performed By: #### B MP #### [facility] [address] [place] [address] Dr. Maru Disla MCH (RBC) [Entitic mass] 29.7 pg Normal 26.7-34.0 [facility] Comment on above: Performed By: #### B MP #### [facility] [address] [place] [address] Dr. Maru Disla MCHC (RBC) [Mass/Vol] 31.7 g/dL Normal 29.9-35.2 [facility] Comment on above: Performed By: #### B MP #### [facility] [address] [place] [address] Dr. Maru Disla MCV (RBC) [Entitic vol] 93.6 fL Normal 81.0-99.0 [facility] Comment on above: Performed By: #### B MP #### [facility] [address] [place] [address] Dr. Maru Disla MONO # 1.5 103/ul Critically high 0.3-0.8 [facility] Comment on above: Performed By: #### B MP #### [facility] [address] [address] [address] Maru Disla Monocytes/100 WBC (Bld) 11.0 % Normal 1.7-12.0 [facility] Comment on above: Performed By: #### B MP #### [facility] [address] [address] [address] Maru Disla NEUT # 10.8 103/ul Critically high 1.4-6.[address] [facility] Comment on above: Performed By: #### B MP #### [facility] [address] [address] [address] Maru Disla Neutrophils/100 WBC (Bld) 77.6 % Critically high 43.0-75.0 [facility] Comment on above: Performed By: #### B MP #### [facility] [address] [place] [address] Dr. Maru Disla Platelet mean volume (Bld) [Entitic vol] 10.1 fL Normal 9.5-13.5 [facility] Comment on above: Performed By: #### B MP #### [facility] [address] [place] [address] Dr. Maru Disla PLT 315 103/ul Normal 150-450 [facility] Comment on above: Performed By: #### B MP #### [facility] [address] [place] [address] Dr. Maru Disla RBC 5.59 106/ul Critically high 4.20-5.40 [facility] Comment on above: Performed By: #### B MP #### [facility] [address] [place] [address] Dr. Maru Disla WBC 13.9 103/ul Critically high 4.0-11.0 [facility] Comment on above: Performed By: #### B MP #### [facility] [address] [place] [address] Dr. Maru Disla CULTURE BLOODon 04-05-2022 Microscopic examination of blood, culture Culture Observations: NO GROWTH AT 5 DAYS. Normal [facility] Comment on above: Performed By: #### B MP #### [facility] [address] [place] [address] Dr. Maru Disla Covid-19 PCR ([facility])on SARS-CoV-2 (COVID-19) RNA NICOLETTE+probe Ql (Unsp spec) Not detected Normal NOT DETECTED [facility] Comment on above: Result Comment: When [...] for this test is supported by the [place] of Health and Human Service's declaration that [...] used). Performed By: #### M ALBR #### [facility] [address] [place] [address] Dr. Maru Disla INFLUENZA A AND B AGon 04-05 INFLUENZA A AG Negative Normal NEGATIVE SEE COMMENT [facility] Comment on above: Performed By: #### P OCGLUC #### [facility] [address] [place] [address] Dr. Maru Disla INFLUENZA B AG Negative Normal NEGATIVE SEE COMMENT [facility] Comment on above: Performed By: #### P OCGLUC #### [facility] [address] [place] [address] Dr. Maru Disla INTERNAL CONTROLS Within Normal Limits Normal Wi thin Normal Limits [facility] Comment on above: Performed By: #### P OCGLUC #### [facility] [address] [place] [address] Dr. Maru Disla LACTATE/LACTIC ACIDon 2021 Lactate [Moles/Vol] 3.1 mmol/L Critically high 0.4-1.9 [facility] Comment on above: Performed By: #### L ACT #### [facility] [address] [place] [address] Dr. Maru Disla Lactate [Moles/Vol] 3.1 mmol/L Critically high 0.4-1.9 [facility] Comment on above: Performed By: #### B MP #### [facility] [address] [address] [address] Maru Disla POINT OF CARE GLUCOSEon 11 Glucose [Mass/Vol] 290 mg/dL Critically high 74-106 [facility] Comment on above: Performed By: #### M ALBR #### [facility] [address] [place] [address] Dr. Maru Disla Glucose [Mass/Vol] 309 mg/dL Critically high 74-106 [facility] Comment on above: Performed By: #### A BG #### [facility] [address] [place] [address] Dr. Maru Disla Glucose [Mass/Vol] 289 mg/dL Critically high -106 [facility] Comment on above: Performed By: #### P OCGLUC #### [facility] [address] [place] [address] Dr. Maru Disla Glucose [Mass/Vol] 325 mg/dL Critically high -106 [facility] Comment on above: Performed By: #### M ALBR #### [facility] [address] [place] [address] Dr. Maru Disla PROF 14(COMP METB)on 022 Albumin [Mass/Vol] 3.3 g/dL Critically low 3.4-5.0 [facility] Comment on above: Performed By: #### P OCGLUC #### [facility] [address] [place] [address] Dr. Maru Disla Albumin/Globulin [Mass ratio] 0.7 {ratio} Normal [facility] Comment on above: Performed By: #### P OCGLUC #### [facility] [address] [address] [address] Maru Disla ALP [Catalytic activity/Vol] 105 U/L Normal 46-116 [facility] Comment on above: Performed By: #### P OCGLUC #### [facility] [address] [address] [address] Maru Disla ALT [Catalytic activity/Vol] 15 U/L Normal 14-59 [facility] Comment on above: Performed By: #### P OCGLUC #### [facility] [address] [address] [address] Maru Disla Anion gap [Moles/Vol] 13.2 mmol/L Normal [facility] Comment on above: Performed By: #### P OCGLUC #### [facility] [address] [address] [address] Maru Disla AST [Catalytic activity/Vol] 12 U/L Critically low 15-37 [facility] Comment on above: Performed By: #### P OCGLUC #### [facility] [address] [address] [address] Maru Disla Bilirubin [Mass/Vol] 0.4 mg/dL Normal 0.2-1.0 [facility] Comment on above: Performed By: #### P OCGLUC #### [facility] [address] [place] [address] Dr. Maru Disla Calcium [Mass/Vol] 8.8 mg/dL Normal 8.5-10.[address] [facility] Comment on above: Performed By: #### P OCGLUC #### [facility] [address] [place] [address] Dr. Maru Disla Chloride [Moles/Vol] 101 mmol/L Normal 98-107 [facility] Comment on above: Performed By: #### P OCGLUC #### [facility] [address] [address] [address] Maru Disla CO2 [Moles/Vol] 26.0 mmol/L Normal 21.0-32.[address] [facility] Comment on above: Performed By: #### P OCGLUC #### [facility] [address] [address] [address] Maru Disla Creatinine [Mass/Vol] 1.03 mg/dL Critically high 0.55-1.02 [facility] Comment on above: Performed By: #### P OCGLUC #### [facility] [address] [address] [address] Maru Disla EGFR-AF RWANDAN >60 Normal >=[address] [facility] Comment on above: Performed By: #### P OCGLUC #### [facility] [address] [address] [address] Maru Disla EGFR-NON AF RWANDAN 54 mL/min/1.73m2 Critically low >=60 [facility] Comment on above: Performed By: #### P OCGLUC #### [facility] [address] [address] [address] Maru Disla Globulin (S) [Mass/Vol] 4.5 g/dL Normal [facility] Comment on above: Performed By: #### P OCGLUC #### [facility] [address] [address] [address] Maru Disla Glucose [Mass/Vol] 264 mg/dL Critically high 74-106 [facility] Comment on above: Performed By: #### P OCGLUC #### [facility] [address] [address] [address] Maru Disla Potassium [Moles/Vol] 4.2 mmol/L Normal 3.5-5.1 [facility] Comment on above: Performed By: #### P OCGLUC #### [facility] [address] [address] [address] Maru Disla Protein [Mass/Vol] 7.8 g/dL Normal 6.4-8.2 [facility] Comment on above: Performed By: #### P OCGLUC #### [facility] [address] [address] [address] Maru Disla Sodium [Moles/Vol] 136 mmol/L Normal 136-[address] [facility] Comment on above: Performed By: #### P OCGLUC #### [facility] [address] [place] [address] Dr. Maru Disla Urea nitrogen [Mass/Vol] 14.0 mg/dL Normal 7.0-18.0 [facility] Comment on above: Performed By: #### P OCGLUC #### [facility] [address] [address] [address] Maru Disla Urea nitrogen/Creatinine [Mass ratio] 13.6 mg/mg Normal [facility] Comment on above: Performed By: #### P OCGLUC #### [facility] [address] [address] [address] Maru Disla TROPONIN, HIGH SENSITIVITYon 04-05-2022 HSTROP 10.5 pg/mL Normal 4.0-51.3 [facility] Comment on above: Result Comment: CUT- OFF POINTS HAVE BEEN ESTABLISHED BASED ON THE FOURTH UNIVERSAL DEFINITIONS OF MYOCARDIAL INFARCTION. THE UPPER REFERENCE LIMIT (URL) OF TROPONIN, DEFINED THE 99TH PERCENTILE OF cTnI DISTRIBUTION IN A REFERENCE POPULATION, HAS BEEN CONFIRMED THE DECISION THRESHOLD FOR ME DIAGNOSIS. Performed By: #### A BG #### [facility] [address] [place] [address] Dr. Maru Disla XR CHEST 1 Von [...] by: YECENIA MONTERO Date: 2022-04-05 06:51 Normal [facility] Vital Signs Date Time Vital Sign Value Performing Clinician Facility 03-20-2024 09:07-0400 Body temperature 96.91 [degF] Malik Ramos APRN-MANAGER SIGN Work Phone: [facility] 03-20-2024 09:07-0400 Diastolic blood pressure 48 mm[Hg] Malik Ramos APRN-MANAGER SIGN Work Phone: [facility] 03-20-2024 09:07-0400 Heart rate 76 /min Malik Ramos APRN-MANAGER SIGN Work Phone: [facility] 03-20-2024 09:07-0400 Respiratory rate 16 /min Malik Ramos MASTER COASTWISE YACHT-MANAGER SIGN Work Phone: [facility] 03-20-2024 09:07-0400 Systolic blood pressure 100 mm[Hg] Malik Ramos MASTER COASTWISE YACHT-MANAGER SIGN Work Phone: [facility] 03-11-2024 10:25-0400 Body height 167.6 cm Maira Aichholz VALVE SEATER OPERATOR Work Phone: [facility] 03-11-2024 10:25-0400 Body mass index (BMI) [Ratio] 33.28 kg/m2 Maira Aichholz VALVE SEATER OPERATOR Work Phone: [facility] 03-11-2024 10:25-0400 Body temperature 98.1 [degF] Maira Aichholz VALVE SEATER OPERATOR Work Phone: [facility] 03-11-2024 10:25-0400 Body weight 93.53 kg Maira Aichholz VALVE SEATER OPERATOR Work Phone: [facility] 03-11-2024 10:25-0400 Diastolic blood pressure 80 mm[Hg] Maira Aichholz VALVE SEATER OPERATOR Work Phone: [facility] 03-11-2024 10:25-0400 Heart rate 71 /min Maira Aichholz VALVE SEATER OPERATOR Work Phone: [facility] 03-11-2024 10:25-0400 Respiratory rate 18 /min Maira Aichholz VALVE SEATER OPERATOR Work Phone: [facility] 03-11-2024 10:25-0400 SaO2% (BldA) [Mass fraction] 96 % Maira Aichholz VALVE SEATER OPERATOR Work Phone: [facility] 03-11-2024 10:25-0400 Systolic blood pressure 122 mm[Hg] Maira Aichholz VALVE SEATER OPERATOR Work Phone: [facility] 07-18-2023 14:27-0500 Body height 167.6 cm Maira Aichholz VALVE SEATER OPERATOR Work Phone: [facility] 07-18-2023 14:27-0500 Body mass index (BMI) [Ratio] 38.29 kg/m2 Maira Aichholz VALVE SEATER OPERATOR Work Phone: [facility] 07-18-2023 14:27-0500 Body temperature 98.01 [degF] Maira Aichholz VALVE SEATER OPERATOR Work Phone: [facility] 07-18-2023 14:27-0500 Body weight 107.59 kg Maira Aichholz VALVE SEATER OPERATOR Work Phone: [facility] 07-18-2023 14:27-0500 Diastolic blood pressure 78 mm[Hg] Maira Aichholz VALVE SEATER OPERATOR Work Phone: [facility] 07-18-2023 14:27-0500 Heart rate 79 /min Maira Aichholz VALVE SEATER OPERATOR Work Phone: [facility] 07-18-2023 14:27-0500 Respiratory rate 19 /min Maira Aichholz VALVE SEATER OPERATOR Work Phone: [facility] 07-18-2023 14:27-0500 SaO2% (BldA) [Mass fraction] 97 % Maira Kenahholz VALVE SEATER OPERATOR Work Phone: [facility] 07-18-2023 14:27-0500 Systolic blood pressure 142 mm[Hg] Maira Aichholz VALVE SEATER OPERATOR Work Phone: [facility] Healthcare Encounters Encounter Date Encounter Type Care Provider Facility Start: 03-20-2024 End: 03-20-2024 Office outpatient new 20 minutes Malik Ramos MASTER COASTWISE YACHT-MANAGER SIGN Work Phone: [facility] Comment on above: Type 2 diabetes gayatri itus with other skin ulcer, with long-term current use of insulin [place] (Primary Dx); Stage III pressure ulcer of sacral region ([facility] Open wound Start: 03-20-2024 End: 03-20-2024 ambulatory MALIK RAMOS [facility] Start: 03-18-2024 End: 03-18-2024 Refill Maira Aichholz VALVE SEATER OPERATOR Work Phone: [facility] Comment on above: COPD mixed type (CMS /HCC) (Primary Dx); URI, acute COPD mixed type (CMS /HCC); URI, acute Start: 03-16-2024 End: 03-16-2024 Refill Maira Aichholz VALVE SEATER OPERATOR Work Phone: [facility] Comment on above: Primary hypertension ([facility]/HCC) (Primary Dx); Edema of extremities Start: 03-11-2024 End: 03-11-2024 Bamboo flowsheet Maira Aichholz VALVE SEATER OPERATOR Work Phone: [facility] Start: 03-11-2024 End: 03-11-2024 Bamboo flowsheet Maira Aichholz VALVE SEATER OPERATOR Work Phone: [facility] Start: 03-11-2024 End: 03-11-2024 Office outpatient visit 25 minutes Maira Aichholz VALVE SEATER OPERATOR Work Phone: [facility] Comment on above: Viral upper respirat ory tract infection (Primary Dx); Tobacco user; Open wound; Obesity (BMI 30-39.9); Type 2 diabetes mellitus without complication, with long-term current use of insulin ([facility]) Start: 03-11-2024 End: 03-11-2024 ambulatory MAIRA AICHHOLZ Not Available Start: 02-25-2024 End: 02-25-2024 ambulatory MAIRA AICHHOLZ Not Available Start: 02-17-2024 End: 02-17-2024 ambulatory MAIRA AICHHOLZ Not Available Start: 01-23-2024 End: 01-23-2024 ambulatory CHAPITO DAMICO 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: [facility] Comment on above: Primary hypertension (CMS/HCC) (Primary Dx); Type 2 diabetes mellitus with diabetic neuropathy, with long-term current use of insulin (CMS/HCC); Gastroesophageal reflux disease, unspecified whether esophagitis present; Vitamin D deficiency; Type 2 diabetes mellitus with complication, without long-term current use of insulin (CMS/HCC); Mixed hyperlipidemia (CMS/HCC); Encounter for screening mammogram for malignant neoplasm of breast; SANTO (obstructive sleep apnea); COPD mixed type (CMS/HCC); Anxiety and depression (CMS/HCC); COVID; Open wound; Morbid obesity with body mass index (BMI) of 40.0 to 49.9 (CMS/HCC) Start: 07-18-2023 End: 07-18-2023 ambulatory MAIRA KENAHHOLZ Not Available Start: 07-18-2023 Bamboo flowsheet Maira Fatouz VALVE SEATER OPERATOR Work Phone: [facility] Start: 07-18-2023 Bamboo flowsheet Maira Fatouz VALVE SEATER OPERATOR Work Phone: [facility] Start: 01-08-2023 End: 01-08-2023 ambulatory [facility] Start: 10-02-2022 End: 10-03-2022 ambulatory MANAGER SIGN MAIRA KENAHHOLZ Facility:[facility] Start: 08-09-2022 End: 08-10-2022 ambulatory MANAGER SIGN MAIRA AICHHOLZ Facility:[facility] Start: 07-12-[address] [facility] Start: 06-21-2022 End: 06-22-[address] CORINE ANGELA Facility:[facility] Start: 06-20-2022 End: 06-21-2022 ambulatory MANAGER SIGN MAIRA AICHHOLZ Facility:[facility] Start: 06-07-2022 End: 06-07-2022 ambulatory Robert Hart Facility:[facility] Start: 04-05-2022 End: 04-09-2022 Evaluation and management of inpatient DR TERI BLOCK . Facility:[facility] Start: 11-23-2021 End: 11-23-2021 ambulatory DMITRY RUSH Facility: Start: 09-30-2018 End: 10-01-2018 Patient encounter procedure DEFAULT PHYSICIAN Facility:[facility] Start: 09-15-2018 End: 09-16-2018 Patient encounter procedure DEFAULT PHYSICIAN Facility:[facility] Procedures Date Procedure Procedure Detail Performing Clinician Start: 08-05-2023 Mammography Maira santiago VALVE SEATER OPERATOR Work Phone: Start: 06-19-2022 Mammography Maira Terrance santiago VALVE SEATER OPERATOR Work Phone: Start: 02-14-2015 Colonoscopy Maira Terrance santiago VALVE SEATER OPERATOR Work Phone: Plan of Treatment Date Care Activity Detail Author Start: 11-24-2031 DTaP,Tdap and Td Vaccines (3 - Td or Tdap) DTaP,Tdap and Td Vaccines (3 - Td or Tdap) [facility] Start: 03-20-2025 Tobacco Screening Tobacco Screening [facility] Start: 02-14-2025 Screening for malign ant neoplasm of colon [facility] Start: 02-06-2025 Adult BMI Screening Adult BMI Screen ing [facility] Start: 08-04-2024 Screening for malign ant neoplasm of breast Mammogram [facility] Start: 08-04-2024 Urine screening for protein Diabetes: Urine Protein Screening [facility] Start: 04-22-2024 End: 04-22-2024 Patient encounter procedure 04/22/2024 9:20 AM EST [facility] Visit [facility] [address] [place] [address] Maira Rush NP [address] [place] [address] [facility] Start: 04-03-2024 End: 04-03-2024 Patient encounter procedure 04/03/2024 9:20 AM EDT Office Visit [facility] [address] [facility] [phone] Malik Ramos, MASTER COASTWISE YACHT-MANAGER SIGN [facility] [address] [place] [address] Alley Lemus, MASTER COASTWISE YACHT-MANAGER SIGN [address] [place] [address] [facility] Start: 03-11-2024 End: 03-11-2024 Patient encounter procedure 03/11/2024 10:00 AM EDT Office Visit [facility] [address] [place] [phone] Maira Rush, ARLEN [address] [place] [phone] Arrived [facility] Comment on above: Arrived Start: 02-02-2024 COVID-19 Vaccine ( season) COVID-19 Vaccine ( season) [facility] Start: 02-02-2024 Influenza vaccination Influenza Vacc ine [facility] Start: 11-05-2023 Hemoglobin A1c measurement Diabetes: Hemoglobin A1C [facility] Start: 10-16-2023 End: 10-16-2023 Patient encounter procedure 10/16/2023 9:20 AM EDT Office Visit [facility] [address] [place] [phone] Maira Rush, ARLEN [address] [place] [phone] [facility] Start: 08-16-2023 End: 09-15-2024 MG Breast - [...] procedure 07/18/2023 2:20 PM EST Office Visit [facility] [address] [place] [address] Maira Rush NP [address] [place] [address] Type 2 diabetes mellitus with diabetic neuropathy, with long-term current use of insulin (CMS/HCC) (Primary Dx); Primary hypertension (CMS/HCC); Gastroesophageal reflux disease, unspecified whether esophagitis present; Vitamin D deficiency; Type 2 diabetes mellitus with complication, without long-term current use of insulin (CMS/HCC); Mixed hyperlipidemia (CMS/HCC); Encounter for screening mammogram for malignant neoplasm of breast [facility] Comment on above: Type 2 diabetes [...] hyperlipidemia (CMS/HCC) Expected: 07/18/2023 (Approximate), Expires: 07/18/2024 [facility] Comment on above: Expected: 07/18/2023 (Approximate), Expires: 07/18/2024 Start: 07-18-2023 End: 07-18-2024 Hemoglobin A1c/Hemoglobin.total in Blood Hemoglobin A1c Lab Routine Type 2 diabetes mellitus with complication, without long-term current use of insulin (CMS/HCC) Expected: 07/18/2023 (Approximate), Expires: 07/18/2024 [facility] Comment on above: Expected: 07/18/2023 (Approximate), Expires: 07/18/2024 Start: 07-18-2023 End: 07-18-2024 Lipid 1996 panel - Serum or Plasma Lipid panel Lab Routine Mixed hyperlipidemia (CMS/HCC) Expected: 07/18/2023 (Approximate), Expires: 07/18/2024 [facility] Comment on above: Expected: 07/18/2023 (Approximate), Expires: 07/18/2024 Start: 07-18-2023 End: 07-18-2024 Microalbumin/Creatinine panel in random Urine Microalbumin / creatinine, urine ratio Lab Routine Type 2 diabetes mellitus with complication, without long-term current use of insulin (CMS/HCC) Expected: 07/18/2023 (Approximate), Expires: 07/18/2024 [facility] Comment on above: Expected: 07/18/2023 (Approximate), Expires: 07/18/2024 Start: 07-18-2023 End: 07-18-2024 Urinalysis complete panel - Urine Urinalysis with reflex microscopic (clean catch) Lab Routine Type 2 diabetes mellitus with complication, without long-term current use of insulin (CMS/HCC) Expected: 07/18/2023 (Approximate), Expires: 07/18/2024 [facility] Comment on above: Expected: 07/18/2023 (Approximate), Expires: 07/18/2024 Start: 06-19-2023 Screening for malign ant neoplasm of breast Mammogram [facility] Start: 02-01-2023 Influenza vaccination Influenza Vacc ine (#1) [facility] Start: 01-07-2019 Hemoglobin A1c measurement Diabetes: Hemoglobin A1C [facility] Start: 2009 Administration of varicella zoster vaccine Zoster (Shingles) Vaccine (1 of 2) [facility] Start: 1989 Screening for malign ant neoplasm of cervix [facility] Start: 1980 Screening for malign ant neoplasm of cervix Pap Smear [facility] Start: 1977 Adult BMI Follow Up Plan Adult BMI F ollow Up Plan [facility] Start: 1977 Diabetic foot examination Diabetic Foot Exam [facility] Start: 1971 Depression Screening Depression Scre ening [facility] Start: 1969 Glaucoma screening Diabetes: R etinopathy Screening [facility] Start: 1959 Glaucoma screening Diabetic Op hthalmology Exam [facility] Start: 1959 Screening for malign ant neoplasm of colon [facility] Start: 1959 Tobacco Counseling Tobacco Counselin g [facility] Immunizations Immunization Date Immunization Notes Care Provider Fa cility 04-05-2022 influenza, injectabl e, quadrivalent, preservative free Maira Fatouz VALVE SEATER OPERATOR Work Phone: [facility] 04-05-2022 pneumococcal polysaccharide vaccine, 23 valent Maira Aichholz VALVE SEATER OPERATOR Work Phone: [facility] 04-05-2022 influenza virus vacc ine, unspecified formulation Maira Aichvaz VALVE SEATER OPERATOR Work Phone: [facility] 11-23-2021 diphtheria, tetanus toxoids and pertussis vaccine Maira Aichholz VALVE SEATER OPERATOR Work Phone: [facility] 03-24-2020 tetanus toxoid, redu joaquin diphtheria toxoid, and acellular pertussis vaccine, adsorbed Maira Aichholz VALVE SEATER OPERATOR Work Phone: [facility] 03-25-2017 Influenza, injectabl e, Madin Arline Canine Kidney, preservative free, quadrivalent Maira Victor Manuel VALVE SEATER OPERATOR Work Phone: [facility] Healthcare Payers Date Payer Category Payer Medicaid [facility] MEDICAID [place] [id number] 2017-Present [address] [place] [phone] [id number] 2017 Medicaid (Managed Care) [facility] MEDICAID [id number] 2003 Medicaid HMO [employer] [employer] [id number] 1959 Unknown [id number] 2.16.840.1.929464.3.579.2. 647 1959 Unknown [id number] 2.16.840.1.471577.3.579.2. 647 1959 Unknown [id number] 2.16.840.1.219553.3.579.2. 593 1959 Unknown [id number] 2.16.840.1.746665.3.579.2. 593 1959 Unknown [id number] 2.16.840.1.017599.3.579.2. 593 1959 Unknown [id number] 2.16.840.1.930276.3.579.2. 593 1959 Unknown [id number] 2.16.840.1.076476.3.579.2. 593 1959 Unknown [id number] 2.16.840.1.057523.3.579.2. 593 1959 Unknown [id number] 2.16.840.1.744651.3.579.2. 593 1959 Unknown [id number] 2.16.840.1.163056.3.579.2. 1286 1959 Unknown [id number] 2.16.840.1.832767.3.579.2. 1286 1959 Unknown [id number] 2.16.840.1.450199.3.579.2. 1259 1959 Unknown [id number] 2.16.840.1.650002.3.579.2. 1259 1959 Unknown [id number] 2.16.840.1.086421.3.579.2. 1259 1959 Unknown [id number] 2.16.840.1.912061.3.579.2. 1259 1959 Unknown [id number] 2.16.840.1.256033.3.579.2. 1259 1959 Unknown [id number] 2.16.840.1.973798.3.579.2. 1259 1959 Unknown [id number] 2.16.840.1.985187.3.579.2. 1286 1959 Unknown [id number] 2.16.840.1.693865.3.579.2. 1286 1959 Unknown [id number] 2.16.840.1.190664.3.579.2. 1286 1959 Unknown [id number] 2.16.840.1.555710.3.579.2. 1286 1959 Unknown [id number] Unknown Social History Date Type Detail Facility Start: 07-15-2023 Tobacco smoking status NHIS Ex-smoker [facility] Start: 06-03-1982 End: 04-03-2022 History of tobacco use Current smoker [facility] Start: 06-03-1982 End: 04-03-2022 History of tobacco use Cigarette Smoker [facility] Start: 07-14-2020 End: 07-15-2023 Cigarettes smoked current (pack per day) - Reported 0.5 [facility] Start: 07-18-2023 End: 03-20-2024 Alcohol intake Ex-drinker (finding) [facility] Start: 07-14-2020 End: 06-29-2023 Tobacco use panel [facility] Start: 07-15-2023 Alcohol Comment coffee 1-2 cups per day [facility] Start: 1959 Sex Assigned At Not on file [facility] Start: 04-03-2022 Tobacco smoking status [facility] Smokes tobacco daily [facility] Start: 03-20-2024 Tobacco use and exposure Smokeless tobacco non-user [facility] Has the [place], [employer] threatened to shut off services in your home in past 12Mo No [facility] In the past 12 month s, has lack of transportation kept you from medical appointments or from getting medications? No [facility] Start: 01-06-2015 Sex Female (finding) [facility] Medical Equipment Procedure Code Equipment Code Equipment Origin al Text Equipment Identifier Dates [id number] Start: 06-24-2023 Goals Date Patient Goal Desired Activity /State Personal health goal Comment on above: Formatting of this n ote might be different from the original. Evaluation of progress towards goal: Patient is agreeable to SNF for therapy. Clinical Notes 06-07-2022 to 03-20-2024 Malik Ramos, MASTER COASTWISE YACHT-MANAGER SIGN - 03/20/2024 9:00 AM EDTPatient InstructionsTelephone Encounter - Maira Victor Manuel, ARLEN - 03/18/2024 8:34 AM EDTTelephone Encounter - Maira Victor Manuel, VALVE SEATER OPERATOR - 03/18/2024 8:34 AM EDT Note Date & Type Note Facility 03-20-2024 History of Presen t illness Narrative Images from the original note were not included. Wound Care Progress Note Patient: Denae Dior Date of : 1960 Chief Complaint:buttock wound, new patient Subjective/HPI: Denae is a 63 y.o. female who present to [facility] for evaluation of 1 ulcer(s) on the sacral area. Patient was first assessed in wound clinic on 03/20/24. Current daily wound care includes OTC zinc cream up to 4 times daily. Reports blood glucose 299 last night which is typical for her. States she has lost weight due to stress putting her in chcf. She does not know how wound occurred or how long wound has been present. States she sleeps in chair at times. Patient accompanied by:patient Nutritional screen shows patient is taking increased amounts of protein in the diet. Patient does deny fever, chills, sweats or other symptoms of infection. Tobacco use: reports that she has been smoking cigars and cigarettes. She started smoking about 1 years ago. She has a 15.1 pack-year smoking history. She has never used smokeless tobacco. Contributing comorbid conditions:tobacco use, weakness, type II diabetes, neuropathy Glucose Date Value Ref Range Status 01/22/2024 153 (H) 65 - 99 mg/dL Final No results found for: HGBA1C Wound related history: Last cx: No results found for: WOUNDCX , SUPERFICIAL , TISSUECULTU Osteomyelitis check: none Prior Authorization ordered: none Travel Screening Question Response Have you been in contact with someone who was sick? No / Unsure Do you have any of the following new or worsening symptoms? Cough Have you traveled internationally or domestically in the last month? No Travel History Travel since 02/19/24 No documented travel since 02/19/24 Patient Active Problem List Diagnosis Hyperglycemia Weakness Hypokalemia Atrial fibrillation ([facility]) Chronic obstructive pulmonary disease [place] JORDAN (generalized anxiety disorder) GERD (gastroesophageal reflux disease) HLD (hyperlipidemia) Medical non-compliance Neuropathy, diabetic ([facility] Primary hypertension SANTO (obstructive sleep apnea) Tobacco dependence syndrome Type 2 diabetes mellitus with complication, without long-term current use of insulin ([facility] Muscle weakness (generalized) Other abnormalities of gait and mobility Injury of back of head No past medical history on file. No past surgical history on file. Current Outpatient Medications Medication Sig Dispense Refill aspirin 81 mg Take 1 tablet (81 mg total) by mouth in the morning. carvediloL (COREG) 12.5 mg tablet Take 1 tablet (12.5 mg total) by mouth in the morning and 1 tablet (12.5 mg total) in the evening. Take with meals. furosemide (LASIX) 20 mg tablet Take 1 tablet (20 mg total) by mouth daily. gabapentin (NEURONTIN) 600 mg tablet Take 1 tablet (600 mg total) by mouth 3 (three) times a day. insulin glargine (LANTUS, SEMGLEE) 100 unit/mL (3 mL) insulin pen Inject 15 Units under the skin in the morning and 15 Units before bedtime. 15 mL 0 insulin lispro (HumaLOG) 100 unit/mL insulin pen Inject 2-10 Units under the skin in the morning and 2-10 Units at noon and 2-10 Units in the evening. Inject with meals. Daytime hyperglycemia dosing.For blood glucose 151-200 mg/dL, give 2 units. 201-250 mg/dL, give 4 units. 251-300 mg/dL, give 6 units. 301-350 mg/dL, give 8 units.351-400 mg/dL, give 10 units.. 15 mL 0 insulin lispro (HumaLOG) 100 unit/mL insulin pen Inject 2-8 Units under the skin nightly. Bedtime hyperglycemia dosing.For blood glucose 201-250 mg/dL, give 2 units. 251-300 mg/dL, give 4 units. e 301-350 mg/dL, give 6 units.351-400 mg/dL, give 8 units. 15 mL 0 JARDIANCE 25 mg tablet tablet Take 1 tablet (25 mg total) by mouth in the morning. losartan (COZAAR) 100 mg tablet Take 1 tablet (100 mg total) by mouth in the morning. pantoprazole (PROTONIX) 40 mg EC tablet Take 1 tablet (40 mg total) by mouth every morning before breakfast. PARoxetine (PAXIL) 10 mg tablet Take 2 tablets (20 mg total) by mouth in the morning. potassium chloride (KLOR-CON SPRINKLE) 10 MEQ CR capsule Take 1 capsule (10 mEq total) by mouth in the morning. rivaroxaban (XARELTO) 20 mg tablet tablet Take 1 tablet (20 mg total) by mouth in the morning. rosuvastatin (CRESTOR) 5 mg tablet Take 1 tablet (5 mg total) by mouth nightly. spironolactone (ALDACTONE) 25 mg tablet Take 2 tablets (50 mg total) by mouth in the morning and at bedtime. No current facility-administered medications for this visit. Allergies Allergen Reactions Ciprofloxacin Other (See Comments) Metronidazole Other (See Comments) Penicillins Other (See Comments) Sulfamethoxazole-Trimethoprim Other (See Comments) Social History Tobacco Use Smoking status: Every Day Current packs/day: 0.50 Average packs/day: 0.5 packs/day for 30.2 years (15.1 ttl pk-yrs) Types: Cigars, Cigarettes Start date: 04/2022 Smokeless tobacco: Never Substance Use Topics Alcohol use: Not Currently The following portions of the patient's history were reviewed and updated as appropriate: allergies, current medications, past family history, past medical history, past social history, past surgical history, problem list, and medication reconciliation was completed including current medication and post discharge medication. PAIN: Pain Description: Aching, Throbbing Pain Scale 0/10: 6 Relieved by: Changing position Review of Systems Constitutional: Positive for appetite change (due to on antibiotics for respiratory infection) and unexpected weight change. Negative for activity change, chills, diaphoresis, fatigue and fever. Respiratory: Positive for shortness of breath (baseline). Negative for cough, choking and chest tightness. Cardiovascular: Negative for chest pain and palpitations. Gastrointestinal: Negative for abdominal pain, blood in stool, constipation and vomiting. Genitourinary: Negative for decreased urine volume and difficulty urinating. Musculoskeletal: Positive for arthralgias and back pain. Skin: Positive for wound. Negative for color change and rash. Neurological: Negative for syncope, speech difficulty, weakness and light-headedness. Objective: Vitals: 03/20/24906 BP: 100/48 Pulse: 76 Resp: 16 Temp: 36.1 C (96.9 F) Physical Exam Vitals reviewed. Constitutional: General: She is not in acute distress. Appearance: Normal appearance. She is not ill-appearing or diaphoretic. HENT: Head: Normocephalic and atraumatic. Comments: Scalp wound is healed intact scar tissue Mouth/Throat: Mouth: Mucous membranes are moist. Cardiovascular: Rate and Rhythm: Normal rate. Pulmonary: Effort: Pulmonary effort is normal. No respiratory distress. Abdominal: General: There is no distension. Palpations: Abdomen is soft. Tenderness: There is no abdominal tenderness. Musculoskeletal: Cervical back: No muscular tenderness. Skin: General: Skin is warm and dry. Capillary Refill: Capillary refill takes less than 2 seconds. Coloration: Skin is not jaundiced. Findings: Wound present. No erythema or rash. Neurological: Mental Status: She is alert and oriented to person, place, and time. Psychiatric: Mood and Affect: Mood normal. Behavior: Behavior normal. Wound Assessment: Wound 01/17/24 Coccyx (Active) Wound 01/17/24 Coccyx (Active) Wound 03/20/24 1 Pressure Injury Coccyx Mid (Active) Wound Image 03/20/24920 Site Assessment [place];Red 03/20/24920 Stefanie-wound Assessment [place];Intact 03/20/24920 Wound Length (cm) 0.8 cm 03/20/24920 Wound Width (cm) 0.2 cm 03/20/24920 Wound Surface Area (cm^2) 0.16 cm^2 03/20/24920 Wound Depth (cm) 0.1 cm 03/20/24920 Wound Volume (cm^3) 0.016 cm^3 03/20/24920 Drainage Description Odor None 03/20/24920 Drainage Amount None 03/20/24920 Treatments Cleansed with;Soak with;Vashe/Hypochlorous Acid 03/20/24920 Debridement Performed? N 03/20/24920 Dressing Type Triad hydro 03/20/24920 Wound Bed Granulation (%) 100% 03/20/24920 Measurable Improvement: initial wound encounter Dressing: The wound was cleansed with wound wash and a Triad dressing was placed in wound clinic. Patient Status: Well tolerated by patient. Assessment/Plan/Education: 1. Stage III pressure ulcer of sacral region ([facility]) 2. Open wound Dicussed that pressure is etiology of wound so relieving pressure will be paramount in wound healing. Turn a minimum of every 2 hours while in bed or chair, including side lying as tolerated. Discussed amount of pressure on coccyx while sitting in chair versus reclining. Sleep in bed not chair. Implement Triad BID. No cover dressing needed. Wash daily with soap and water 3. Type 2 diabetes mellitus with other skin ulcer, with long-term current use of insulin ([facility]) (Primary) Patient states she is going to call her equipment maintenance superintendent for follow up. Encouraged due to consistent high blood sugars. She states she has been making poor food choices. Patient instructed in pressure ulcer: Stage III care to coccyx. Patient verbalizes understanding of strategies to prevent skin breakdown, treatment regimen and the importance of adherence, and when to contact the physician, HH, and/or EMS. The patient was taught to watch for S/S of infection (redness, pus, pain, increased swelling, chills or fever) and to call the PCP or wound care clinic if such occurs. The patient was educated on offloading the area by avoiding direct pressure to the wound bed. Education as well as the pathophysiology of the disease process was provided on pressure and its relationship to nonhealing wounds. Education was also provided on treatment plan. Patient verbalized understanding. We will continue to follow closely to avoid any complications or infection. Our short term goal is wound compliance. Our intermediate goal is wound closure. Follow up wound clinic in 2 weeks. Instructed to contact wound clinic/PCP or ER should symptoms worsen. Total time spent was 25 minutes: Preparing to see the patient (e.g., review of tests) Obtaining and/or reviewing separately obtained history Performing a medically appropriate examination and/or evaluation Counseling and educating the patient/family/caregiver Documenting clinical information in the electronic or other health record MARY Hines [facility] Office: [phone] Email: [email or web address] Thank you very much for allowing us to participate in your patients care. Your referrals are greatly appreciated, please do not hesitate to contact our service with any questions or concerns regarding the care management. TRISH aZmudio 03/20/24 1021 documented in this encounter [facility] 03-20-2024 Instructions Hillary Daniels RN - 03/20/2024 9:00 AM EDT Med1 Care Wound Management Treatment Plan Wound Location(s): coccyx HOW TO CARE FOR YOUR WOUND The following should be performed Twice daily and as needed. STEP 1: Cleanse wound with Soap and water, rinse well, and pat dry. Irrigate or rinse wound with NO IRRIGATION REQUIRED. STEP 2: Soak wound with NO SOAK REQUIRED. STEP 3: Pack with NO PACKING REQUIRED STEP 4: Apply Triad Cream to wound bed. STEP 5: May cover with your underwear ACTIVITY: Avoid direct pressure to wound(s) at all times and Reposition at least every 2 hours NUTRITION: High protein diet SKIN CARE: as above SWELLING CONTROL: Avoid standing for prolonged periods of time. Elevate legs whenever sitting to level of heart/hips or higher. ITEMS TO FOLLOW UP ON: Remember to call to set up your follow up appointment with your equipment maintenance superintendent (diabetes DR) Length Width Depth Wound 03/20/24 1 Pressure Injury Coccyx Mid-Wound Length (cm): 0.8 cm Wound 03/20/24 1 Pressure Injury Coccyx Mid-Wound Width (cm): 0.2 cm Wound 03/20/24 1 Pressure Injury Coccyx Mid-Wound Depth (cm): 0.1 cm Wound drainage Type Description none [facility]18-[facility]24 Telephone encounter Note Contact provider this morning, she is now starting to cough up yellow mucus and worsening in symtpoms, no fever, no NVD Will send in atb Also needs humidification for her oxygen She is instructed if atb does not help will need fu apppt [place] [facility] 03-18-2024 Miscellaneous Notes Contact provider this morning, she is now starting to cough up yellow mucus and worsening in symtpoms, no fever, no NVD Will send in atb Also needs humidification for her oxygen She is instructed if atb does not help will need fu apppt [place] documented in this encounter [facility] 03-11-2024 History of Presen t illness Narrative Associated Problem(s): Type 2 diabetes mellitus without complication, with long-term current use of insulin ([facility]) Phone number given for pt to contact Dr Gilman office Associated Problem(s): Open wound Refer to wound care Associated Problem(s): Viral upper respiratory tract infection Do not see any s/s bacterial infection, lungs clear Did in office Flu A/B/Covid: negative Fluids, rest, monitor for s/s worsening if so call office Pt states she feels achy in the last couple days, she feels plugged up, had a sore throat yesterday, headaches near the eyes, coughing, sob, wheezing, weakness, loss of taste, runny nose, stuffy nose, cold chills. Last week she started having diarrhea and vomiting Images from the original note were not included. Denae Dior is a 63 y.o. female presents with chief complaint of No chief complaint on file. HPI: Here for recheck of her open wound to buttock region. No drainage, no fever Still has not gotten in contact with her Endo to make a fu appt URI This is a new problem. Episode onset: 3. There has been no fever. Associated symptoms include rhinorrhea and a sore throat. Pertinent negatives include no abdominal pain, chest pain, congestion, coughing, diarrhea, dysuria, ear pain, headaches, nausea, plugged ear sensation, rash, sinus pain, sneezing, swollen glands, vomiting or wheezing. Associated symptoms comments: Nausea and diarrhea last week, now resolved. She has tried nothing for the symptoms. SUBJECTIVE: MEDICATIONS: Current Outpatient Medications Medication Instructions albuterol 2.5 mg, Nebulization, Every 6 hours PRN Alcohol Swabs (Easy Touch Alcohol Prep Medium) 70 % pads 1 each, Topical, 4 times daily aspirin (ASPIRIN LOW DOSE) 81 mg, Oral, Daily budesonide-formoterol (Symbicort) 160-4.5 MCG/ACT inhaler 2 puffs, Inhalation, 2 times daily, Rinse mouth after use Calcium+D3 500-10 MG-MCG tablet 1 tablet, Oral, 2 times daily carvedilol (Coreg) 12.5 MG tablet 1 tablet, Oral, 2 times daily with meals cholecalciferol (VITAMIN D-3) 2,000 Units, Oral, Daily Continuous Glucose Area Relief Pilot (FreeStyle Julisa 2 Hammett) device Continuous Glucose Sensor (FreeStyle Julisa 2 Sensor) misc empagliflozin (JARDIANCE) 25 mg, Oral, Daily furosemide (Lasix) 20 MG tablet 1 tablet, Oral, Daily gabapentin (NEURONTIN) 600 mg, Oral, 3 times daily insulin lispro (HUMALOG) 2-8 Units, Subcutaneous, Nightly insulin lispro (HUMALOG) 2-10 Units, Subcutaneous, 3 times daily with meals Lantus SoloStar 60 Units, Subcutaneous, Nightly, 15 units losartan (COZAAR) 100 mg, Oral, Daily meclizine (ANTIVERT) 25 mg, Oral, 3 times daily PRN NovoLOG FLEXPEN 100 UNIT/ML pen Sliding 0-6 units (6units for BS being 300) pantoprazole (PROTONIX) 40 mg, Oral, Daily PARoxetine (PAXIL) 20 mg, Oral, Every morning potassium chloride ER (Micro-K) 10 MEQ ER capsule 10 mEq, Oral, Daily rosuvastatin (CRESTOR) 5 mg, Oral, Every evening spironolactone (ALDACTONE) 25 mg, Oral, Twice a day (morning and mid-day) Sure Comfort Pen [place] 32G X 4 MM misc 1 each, Subcutaneous, As needed tiotropium (Spiriva Respimat) 2.5 MCG/ACT inhaler 2 puffs, Inhalation, Daily True Metrix Blood Glucose Test test strip 1 each, Other, As needed Xarelto 20 MG tablet 1 tablet, Oral, Daily with evening meal ALLERGIES: Allergies Allergen Reactions Ciprofloxacin GI intolerance Metronidazole GI intolerance Penicillins GI intolerance Sulfamethoxazole GI intolerance Trimethoprim GI intolerance REVIEW OF SYMPTOMS: Review of Systems Constitutional: Negative for appetite change, chills and fever. HENT: Positive for rhinorrhea and sore throat. Negative for congestion, ear pain, sinus pain and sneezing. Eyes: Negative for pain, discharge, redness and visual disturbance. Respiratory: Negative for cough, shortness of breath and wheezing. Cardiovascular: Negative for chest pain, palpitations and leg swelling. Gastrointestinal: Negative for abdominal pain, blood in stool, constipation, diarrhea, nausea and vomiting. Genitourinary: Negative for difficulty urinating, dysuria and frequency. Musculoskeletal: Negative for arthralgias, back pain, joint swelling and myalgias. Skin: Positive for wound. Negative for rash. Neurological: Negative for dizziness, tremors, seizures, syncope and headaches. Psychiatric/Behavioral: Negative for behavioral problems, self-injury and suicidal ideas. The patient is not nervous/anxious. Hematological: Does not bruise/bleed easily. Endocrine: Positive for polydipsia and polyphagia. Negative for polyuria. Allergic/Immunologic: Negative for environmental allergies and food allergies. PAST MEDICAL HISTORY Past Medical History: Diagnosis Date Anxiety and depression ([facility]) 07/18/2023 Atrial fibrillation ([facility]) 07/18/2023 COPD mixed type ([facility]) 05/23/2023 Drug-induced acute pancreatitis 07/18/2023 Edema of extremities 07/18/2023 GERD (gastroesophageal reflux disease) 07/18/2023 HLD (hyperlipidemia) ([facility]) 07/18/2023 Medical non-compliance 07/18/2023 Morbid obesity with body mass index (BMI) of 40.0 to 49.9 ([facility]) 07/18/2023 Neuropathy, diabetic ([facility]) 07/18/2023 SANTO (obstructive sleep apnea) 07/18/2023 Osteoporosis ([facility]) 07/18/2023 Seasonal allergies 07/18/2023 Tobacco user 07/18/2023 Type 2 diabetes mellitus with complication, without long-term current use of insulin ([facility]) 07/18/2023 Urge and stress incontinence 07/18/2023 Vitamin D deficiency 07/18/2023 Past Surgical History: Procedure Laterality Date APPENDECTOMY CHOLECYSTECTOMY HYSTERECTOMY Complete not due to cancer TONSILLECTOMY family history includes Diabetes in her mother; Heart disease in her mother; Hypertension in her mother; Stroke in her father. OBJECTIVE: Visit Vitals BP 122/80 (BP Location: Left arm, Patient Position: Sitting, BP Cuff Size: Adult long) Pulse 71 Temp 98.1 F (Temporal) Resp 18 Ht 5' 6 Wt 206 lb 3.2 oz SpO2 96% BMI 33.28 kg/m Smoking Status Former BSA 2.09 m Physical Exam Vitals and nursing note reviewed. Constitutional: General: She is not in acute distress. Appearance: Normal appearance. HENT: Head: Normocephalic and atraumatic. Right Ear: Tympanic membrane, ear canal and external ear normal. Left Ear: Tympanic membrane, ear canal and external ear normal. Nose: Congestion present. No rhinorrhea. Mouth/Throat: Mouth: Mucous membranes are moist. Pharynx: No oropharyngeal exudate or posterior oropharyngeal erythema. Eyes: Extraocular Movements: Extraocular movements intact. Conjunctiva/sclera: Conjunctivae normal. Cardiovascular: Rate and Rhythm: Normal rate and regular rhythm. Pulses: Normal pulses. Heart sounds: Normal heart sounds. Pulmonary: Effort: Pulmonary effort is normal. No respiratory distress. Breath sounds: Normal breath sounds. No wheezing or rhonchi. Abdominal: General: Bowel sounds are normal. There is no distension. Palpations: Abdomen is soft. There is no mass. Tenderness: There is no abdominal tenderness (sl generalized tenderness about lower abd, non specific). Musculoskeletal: General: Normal range of motion. Cervical back: Normal range of motion and neck supple. Right lower leg: No edema. Left lower leg: No edema. Lymphadenopathy: Cervical: No cervical adenopathy. Skin: General: Skin is warm and dry. Capillary Refill: Capillary refill takes 2 to 3 seconds. Findings: No rash. Comments: Wound to gluteal cleft, unchanged in size Neurological: General: No focal deficit present. Mental Status: She is alert and oriented to person, place, and time. Psychiatric: Mood and Affect: Mood normal. Behavior: Behavior normal. Thought Content: Thought content normal. Judgment: Judgment normal. ASSESSMENT AND PLAN: Follow up in about 6 weeks (around 04/22/2024). Problem List Items Addressed This Visit Tobacco user Open wound Refer to wound care Relevant Orders Ambulatory referral to Wound Clinic Obesity (BMI 30-39.9) Type 2 diabetes mellitus without complication, with long-term current use of insulin ([facility]) Phone number given for pt to contact Dr Gilman office Relevant Orders Ambulatory referral to Wound Clinic Viral upper respiratory tract infection - Primary Do not see any s/s bacterial infection, lungs clear Did in office Flu A/B/Covid: negative Fluids, rest, monitor for s/s worsening if so call office documented in this encounter [facility] 01-16-2024 Note XR CHEST 1 VW Procedure: Chest x-ray performed Number of views:1 History:Cough Comparison:07/13/2022 Impression: 1. There is patchy airspace disease and effusion in the left lung base. The right lung is clear. There is no pneumothorax. The mediastinal structures are unremarkable. Finalized by Chalo Lang MD on 01/16/2024 8:28 PM [facility] 07-18-2023 History of Presen t illness Narrative Associated Problem(s): Open wound No s/s infection, recommend using diaper barrier ointment on this Associated Problem(s): COVID Recent hospitalization for this, appears to be doing quite well Associated Problem(s): Anxiety and depression ([facility]) Stable at this time Associated Problem(s): Primary hypertension (CMS/HCC) stable Associated Problem(s): COPD mixed type (CMS/HCC) Continues to smoke, refused to quit Cont current meds at this time Associated Problem(s): SANTO (obstructive sleep apnea) Non compliance , has been instructed in the past on importance of need to wear PAP Not wearing risk stroke, ME, Associated Problem(s): Type 2 diabetes mellitus with diabetic neuropathy, with long-term current use of insulin (CMS/HCC) Non compliant with follow up with Endo Explained to her her persistent non compliance will lead to increase risk stroke, ME, blindness, amputation, as well as CKD Instructed [...] from the original note were not included. Denae Dior is a 63 y.o. female presents [...] >200 mg/dl. An ELIANA inhibitor/angiotensin II receptor dania is being taken. Eye exam is not [...] 2 puffs, Inhalation, Daily Sure Comfort Pen [place] 32G X 4 MM misc 1 each, [...] Medical History: Diagnosis Date Anxiety and depression ([facility]) 07/18/2023 Atrial fibrillation ([facility]) 07/18/2023 COPD mixed type ([facility]) 05/23/2023 Drug-induced acute pancreatitis 07/18/2023 Edema of extremities 07/18/2023 GERD (gastroesophageal reflux disease) 07/18/2023 HLD (hyperlipidemia) ([facility]) 07/18/2023 Medical non-compliance 07/18/2023 Morbid obesity with body mass index (BMI) of 40.0 to 49.9 ([facility] [employer]) 07/18/2023 Neuropathy, diabetic ([facility]) 07/18/2023 SANTO (obstructive sleep apnea) 07/18/2023 Osteoporosis ([facility]) 07/18/2023 Seasonal allergies 07/18/2023 Tobacco user 07/18/2023 Type 2 diabetes mellitus with complication, without long-term current use of insulin ([facility]) 07/18/2023 Urge and stress incontinence 07/18/2023 Vitamin [...] Items Addressed This Visit COPD mixed type ([facility]) Continues to smoke, refused to quit Cont current meds at this time Primary hypertension ([facility]) stable Relevant Orders Comprehensive metabolic panel Type 2 diabetes mellitus with diabetic neuropathy, with long-term current use of insulin ([facility]) - Primary Non compliant with follow up with Endo Explained to her her persistent non compliance will lead to increase risk stroke, ME, blindness, amputation, as well as CKD Instructed [...] to wear PAP Not wearing risk stroke, ME, GERD (gastroesophageal reflux disease) Relevant Orders CBC and differential Vitamin D deficiency Relevant Orders Vitamin D 25 hydroxy Type 2 diabetes mellitus with complication, without long-term current use of insulin ([facility]) Relevant Orders Comprehensive metabolic panel Microalbumin / creatinine, urine ratio Urinalysis with reflex microscopic (clean catch) Hemoglobin A1c HLD (hyperlipidemia) ([facility]) Relevant Orders Lipid panel Comprehensive metabolic panel Anxiety and depression ([facility]) Stable at this time Encounter for screening mammogram for malignant neoplasm of breast Relevant Orders Bilateral screening mammogram COVID Recent hospitalization for this, appears to be doing quite well Open wound No s/s infection, recommend using diaper barrier ointment on this documented in this encounter [facility] 01-08-2023 Note Patient here for 6 m [...] All other systems reviewed and are negative. [facility] 01-08-2023 Note Cardiology Clinic No te Subjective Denae Dior is a 62 y.o. year old [...] dyspnea Brother end of July Still smoking 06/06 ppd Wears supplemental Oxygen 2L Follows with [...] Lexiscan stress test (more content not included)... [facility] 06-07-2022 Note PROCEDURE: XR FOOT L T [...] No acute bone abnormality. Electronically authenticated by: ROBERT HART Date: 2022-06-07 08:43 [facility] Evaluation note Diagnosis Primary hypertension (CMS/HCC)- Primary [...] mass index (BMI) of 40.0 to 49.9 ([facility]) documented in this encounter [facility] HealthcareEvaluation note* Diagnosis Viral upper respiratory tract infection- Primary Acute upper respiratory infections of unspecified site Tobacco user Tobacco use disorder Open wound Open wound(s) (multiple) of unspecified site(s), without mention of complication Obesity (BMI 30-39.9) Type 2 diabetes mellitus without complication, with long-term current use of insulin ([facility]) documented in this encounter [facility] HealthcareEvaluation note* Diagnosis Primary hypertension ([facility])- Primary Unspecified essential hypertension Type 2 diabetes mellitus with diabetic neuropathy, with long-term current use of insulin ([facility]) Gastroesophageal reflux disease, unspecified whether esophagitis present Vitamin D deficiency Type 2 diabetes mellitus with complication, without long-term current use of insulin ([facility]) Mixed hyperlipidemia ([facility]) Mixed hyperlipidemia Encounter for screening mammogram for malignant neoplasm of breast SANTO (obstructive sleep apnea) Obstructive sleep apnea (adult) (pediatric) COPD mixed type ([facility]) Anxiety and depression ([facility]) COVID Open wound Open wound(s) (multiple) of unspecified site(s), without mention of complication Morbid obesity with body mass index (BMI) of 40.0 to 49.9 ([facility]) COPD mixed type ([facility])- Primary Dysuria Atrial fibrillation, unspecified type ([facility]) Gastroesophageal reflux disease, unspecified whether esophagitis present Type 2 diabetes mellitus with complication, without long-term current use of insulin ([facility]) Obesity (BMI 30-39.9) Tobacco user Tobacco use disorder Anxiety and depression ([facility]) Dermatitis Contact dermatitis and other eczema, due to unspecified cause Anxiety and depression ([facility])- Primary Obesity (BMI 30-39.9) Type 2 diabetes mellitus with complication, without long-term current use of insulin ([facility]) Medical non-compliance Tobacco user Tobacco use disorder Type 2 diabetes mellitus with hyperglycemia ([facility])- Primary Primary hypertension ([facility]) Unspecified essential hypertension Edema of extremities Edema Type 2 diabetes mellitus without complication, with long-term current use of insulin ([facility]) Vitamin D deficiency Tobacco user Tobacco use disorder Dizziness and giddiness Atrial fibrillation, unspecified type ([facility]) COPD mixed type ([facility]) Open wound of buttock, unspecified laterality, initial encounter- Primary Type 2 diabetes mellitus without complication, with long-term current use of insulin ([facility]) Obesity (BMI 30-39.9) Dizziness and giddiness Viral upper respiratory tract infection- Primary Acute upper respiratory infections of unspecified site Tobacco user Tobacco use disorder Open wound Open wound(s) (multiple) of unspecified site(s), without mention of complication Obesity (BMI 30-39.9) Type 2 diabetes mellitus without complication, with long-term current use of insulin ([facility]) Primary hypertension ([facility])- Primary Unspecified essential hypertension Edema of extremities Edema documented in this encounter [facility] HealthcareEvaluation note* Diagnosis Primary hypertension ([facility])- Primary Unspecified essential hypertension Type 2 diabetes mellitus with diabetic neuropathy, with long-term current use of insulin ([facility]) Gastroesophageal reflux disease, unspecified whether esophagitis present Vitamin D deficiency Type 2 diabetes mellitus with complication, without long-term current use of insulin ([facility]) Mixed hyperlipidemia ([facility]) Mixed hyperlipidemia Encounter for screening mammogram for malignant neoplasm of breast SANTO (obstructive sleep apnea) Obstructive sleep apnea (adult) (pediatric) COPD mixed type ([facility]) Anxiety and depression ([facility]) COVID Open wound Open wound(s) (multiple) of unspecified site(s), without mention of complication Morbid obesity with body mass index (BMI) of 40.0 to 49.9 ([facility]) COPD mixed type ([facility])- Primary Dysuria Atrial fibrillation, unspecified type ([facility]) Gastroesophageal reflux disease, unspecified whether esophagitis present Type 2 diabetes mellitus with complication, without long-term current use of insulin ([facility]) Obesity (BMI 30-39.9) Tobacco user Tobacco use disorder Anxiety and depression ([facility]) Dermatitis Contact dermatitis and other eczema, due to unspecified cause Anxiety and depression ([facility])- Primary Obesity (BMI 30-39.9) Type 2 diabetes mellitus with complication, without long-term current use of insulin ([facility]) Medical non-compliance Tobacco user Tobacco use disorder Type 2 diabetes mellitus with hyperglycemia ([facility])- Primary Primary hypertension ([facility]) Unspecified essential hypertension Edema of extremities Edema Type 2 diabetes mellitus without complication, with long-term current use of insulin ([facility]) Vitamin D deficiency Tobacco user Tobacco use disorder Dizziness and giddiness Atrial fibrillation, unspecified type ([facility]) COPD mixed type ([facility]) Open wound of buttock, unspecified laterality, initial encounter- Primary Type 2 diabetes mellitus without complication, with long-term current use of insulin ([facility]) Obesity (BMI 30-39.9) Dizziness and giddiness Viral upper respiratory tract infection- Primary Acute upper respiratory infections of unspecified site Tobacco user Tobacco use disorder Open wound Open wound(s) (multiple) of unspecified site(s), without mention of complication Obesity (BMI 30-39.9) Type 2 diabetes mellitus without complication, with long-term current use of insulin ([facility]) COPD mixed type ([facility])- Primary URI, acute Acute upper respiratory infections of unspecified site documented in this encounter [facility] HealthcareEvaluation note* Diagnosis Primary hypertension ([facility])- Primary Unspecified essential hypertension Type 2 diabetes mellitus with diabetic neuropathy, with long-term current use of insulin ([facility]) Gastroesophageal reflux disease, unspecified whether esophagitis present Vitamin D deficiency Type 2 diabetes mellitus with complication, without long-term current use of insulin ([facility]) Mixed hyperlipidemia ([facility]) Mixed hyperlipidemia Encounter for screening mammogram for malignant neoplasm of breast SANTO (obstructive sleep apnea) Obstructive sleep apnea (adult) (pediatric) COPD mixed type ([facility]) Anxiety and depression ([facility]) COVID Open wound Open wound(s) (multiple) of unspecified site(s), without mention of complication Morbid obesity with body mass index (BMI) of 40.0 to 49.9 ([facility]) COPD mixed type ([facility])- Primary Dysuria Atrial fibrillation, unspecified type ([facility]) Gastroesophageal reflux disease, unspecified whether esophagitis present Type 2 diabetes mellitus with complication, without long-term current use of insulin ([facility]) Obesity (BMI 30-39.9) Tobacco user Tobacco use disorder Anxiety and depression ([facility]) Dermatitis Contact dermatitis and other eczema, due to unspecified cause Anxiety and depression ([facility])- Primary Obesity (BMI 30-39.9) Type 2 diabetes mellitus with complication, without long-term current use of insulin ([facility]) Medical non-compliance Tobacco user Tobacco use disorder Type 2 diabetes mellitus with hyperglycemia ([facility])- Primary Primary hypertension ([facility]) Unspecified essential hypertension Edema of extremities Edema Type 2 diabetes mellitus without complication, with long-term current use of insulin ([facility]) Vitamin D deficiency Tobacco user Tobacco use disorder Dizziness and giddiness Atrial fibrillation, unspecified type (CMS/HCC) COPD mixed type ([facility]) Open wound of buttock, unspecified laterality, initial encounter- Primary Type 2 diabetes mellitus without complication, with long-term current use of insulin ([facility]) Obesity (BMI 30-39.9) Dizziness and giddiness Viral upper respiratory tract infection- Primary Acute upper respiratory infections of unspecified site Tobacco user Tobacco use disorder Open wound Open wound(s) (multiple) of unspecified site(s), without mention of complication Obesity (BMI 30-39.9) Type 2 diabetes mellitus without complication, with long-term current use of insulin ([facility]) COPD mixed type ([facility]) URI, acute Acute upper respiratory infections of unspecified site documented in this encounter [facility]* Diagnosis Type 2 diabetes mellitus with other skin ulcer, with long-term current use of insulin ([facility])- Primary Stage III pressure ulcer of sacral region ([facility]) Open wound Open wound(s) (multiple) of unspecified site(s), without mention of complication documented in this encounter [facility] for referral (narrative)* Consultation (Routine) - Pending Review Specialty Diagnoses / Procedures Referred By Darcie joshua Referred To Contact Wound Care Diagnoses Open wound Type 2 diabetes mellitus without complication, with long-term current use of insulin ([facility]) Procedures [place] OFFICE/OUTPATIENT NEW HIGH MDM 60 MINUTES Maira Rush NP [address] [place] [address] Referral ID Status Reason Start Date Expiration Date Visits Requested Visits Authorized [id number] Pending Review Specialty Services Required 03/11/2024 09/07/2024 1 1 Scheduling Instructions Please call [facility] and schedule pt with their wound care clinic [facility] Summary Purpose Family History No Family History Records FoundNo Family History Records FoundNo Family History Records FoundNo Family History Records FoundNo Family History Records FoundNo Family History Records FoundNo Family History Records Found Advance Directives No Advanced Directives Records Found Date Activated Date Inactivated Comments 01/16/2024 3:39 PM 01/22/2024 10:18 AM Additional Source Comments INFORMATION SOURCE (unrecogn ized section and content) DATE CREATED AUTHOR 10/06/2018 [facility] DATE CREATED AUTHOR AUTHOR'S ORGANIZ ATION 10/09/2022 [facility] DATE CREATED AUTHOR AUTHOR'S ORGANIZ ATION 09/05/2023 [facility] DATE CREATED AUTHOR AUTHOR'S ORGANIZ ATION 01/25/2024 [facility] DATE CREATED AUTHOR AUTHOR'S ORGANIZ ATION 02/14/2024 [facility] DATE CREATED AUTHOR AUTHOR'S ORGANIZ ATION 03/13/2024 [facility] EPIC DATE CREATED AUTHOR AUTHOR'S ORGANIZ ATION 03/22/2024 [facility] Care Teams (unrecognized sec tion and content) [place] Relationship Specialty Start Date End Date Brandon Mcfarlane MD [address] [place] [phone] PCP - General Family Medicine 06/26/23 Maira Rush NP [address] [place] [phone] Referring Physician Nurse Practitioner 12/17/22 [facility] Relationship Specialty Start Date End Date Brandon Mcfarlane MD [address] [place] [address] PCP - General Family Medicine 06/26/23 Maira Rush NP [address] [place] [phone] Referring Physician Nurse Practitioner 12/17/22 [place] Relationship Specialty Start Date End Date Brandon Mcfarlane MD [address] [place] [phone] PCP - General Family Medicine 06/26/23 Maira Rush NP [address] [place] [phone] Referring Physician Nurse Practitioner 12/17/22 [employer] Relationship Specialty Start Date End Date Brandon Mcfarlane MD [address] [place] [phone] PCP - General Family Medicine 06/26/23 Maira Rush NP [address] [place] [phone] Referring Physician Nurse Practitioner 12/17/22 [employer] Relationship Specialty Start Date End Date Brandon Mcfarlane MD [address] [place] [phone] PCP - General Family Medicine 06/26/23 Maira Rush NP [address] [place] [phone] Referring Physician Nurse Practitioner 12/17/22 [employer] Relationship Specialty Start Date End Date Brandon Mcfarlane MD [address] [place] [phone] PCP - General Family Medicine 06/26/23 Maira Rush NP [address] [place] [phone] Referring Physician Nurse Practitioner 12/17/22 [employer] Relationship Specialty Start Date End Date Brandon Mcfarlane MD [address] [place] [phone] PCP - General Family Medicine 06/26/23 Maira Rush NP [address] [place] [phone] Referring Physician Nurse Practitioner 12/17/22 [employer] Relationship Specialty Start Date End Date Brandon Mcfarlane MD [address] [place] [phone] PCP - General Family Medicine 06/26/23 Maira Rush NP [address] [place] [phone] Referring Physician Nurse Practitioner 12/17/22 [employer] Relationship Specialty Start Date End Date Maira Rush, [employer] PCP - General Nurse Practitioner 01/16/24 Reason for Visit (unrecogniz ed section and content) Reason Onset Date Comments Med Refill 03/16/2024 Reason Comments Wound Check Specialty Diagnoses / Procedures Referred By Contalbaro t Referred To Contact Wound Care Diagnoses Open wound Maira Rush, [employer] [address] [place] [address] Phone: tel: fax: [facility] [address] [place] [address] Phone: tel: fax: Referral ID Status Reason Start Date Expiration Date Visits Requested Visits Authorized [id number] Pending Review Specialty Services Required 4 03/13/2025 1 1 FOR RECORDS PERTAINING TO PATIENTS WHO ARE [...] BE BASED ON THE PRIMARY CLINICAL RECORDS. [facility] [employer] [facility]. provides no warranty or guarantee of the accuracy or completeness of information in this document.
[2024-04-09 08:13] LABS: Bilirubin Urine NEGATIVE (NEGATIVE); Blood Urine NEGATIVE (NEGATIVE); Clarity Urine CLEAR (CLEAR); Color Urine LT. YELLOW (YELLOW); Glucose Urine UA >=1000 mg/dL (NEGATIVE); Ketones Urine NEGATIVE (NEGATIVE); Leukocyte Esterase Urine NEGATIVE (NEGATIVE); Nitrite Urine NEGATIVE (NEGATIVE); Protein Urine NEGATIVE (NEG/TRACE); Urobilinogen Urine 0.2 EU/dL (0.2-1.0)
[2024-04-09 08:15] LABS: Urine Microscopic Indicated NO
[2024-04-09 08:25] LABS: Anion Gap 10.6; BUN Creatinine Ratio 18.5; Carbon Dioxide 32.3 mmol/L (21.0-32.0); Chloride 102 mmol/L (98-107); Estimated GFR (African America >60 (>=60 mL/min/1.73m^2); Estimated GFR (Non-African Ame >60 (>=60 mL/min/1.73m^2); Glucose 269 mg/dL (74-106); Magnesium 2.1 mg/dL (1.8-2.4); Potassium 3.9 mmol/L (3.5-5.1); Sodium 141 mmol/L (136-145)
[2024-04-09 09:00] LABS: Estimated Average Glucose 252 mg/dL; Glycohemoglobin A1C 10.4 % (4.5-6.2)
== END 2024-04-09 07:30 | disposition home or self-care (01) ==
LOC: LAB 07:30
PROVIDERS: PCP Nurse Practitioner; Visit Provider Nurse Practitioner
DX: R42 Dizziness and giddiness (principal); E11.65 Type 2 diabetes mellitus with hyperglycemia; I10 Essential (primary) hypertension; R60.0 Localized edema; E11.9 Type 2 diabetes mellitus without complications; Z79.4 Long term (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; E55.9 Vitamin D deficiency, unspecified; Z72.0 Tobacco use
CPT/HCPCS: 36415; 80048; 81003; 83036; 83735

== ENCOUNTER 2024-04-10 07:38 | Emergency (ER) | payer OTHER, SELFPAY ==
[2024-04-10] VITALS (10 sets, daily range): BP systolic 122; BP diastolic 73; PULSE 66–78; TEMP 36.4; O2SAT 98–99; BMI 37.8
--- OUTSIDE RECORDS SUMMARY | 2024-04-10 07:44 | XMS_ITS | CCD ---
Author Organization [facility] CliniSyin Care Team Providers Care Sales And Marketing Specialist Name Role Phone PHYSICIAN, DEFAULT Admitting Unavailable PHYSICIAN, DEFAULT Attending Unavailable AICHHOLZ, MAIRA Primary Care Unavailable PHYSICIAN, DEFAULT Admitting Unavailable PHYSICIAN, DEFAULT Attending Unavailable AICHHOLZ, MAIRA Primary Care Unavailable AICHHOLZ, ASSOCIATE EDITOR MAIRA Primary Care Unavailable SACHA MONTANO Admitting Unavailable KIAN POTTS Consulting Unavailabl e SACHA MONTANO Attending Unavailable Robert Hart Consulting Unavailable HANNAH TOVAR Admitting Unavailable AICHHOLZ, ASSOCIATE EDITOR MAIRA Primary Care Unavailable HANNAH TOVAR Attending Unavailable HANNAH TOVAR Consulting Unavailable AICHHOLZ, ASSOCIATE EDITOR MAIRA Consulting Unavailable AICHHOLZ, ASSOCIATE EDITOR MAIRA Primary Care Unavailable AICHHOLZ, ASSOCIATE EDITOR MAIRA Admitting Unavailable AICHHOLZ, ASSOCIATE EDITOR MAIRA Attending Unavailable AICHHOLZ, ASSOCIATE EDITOR MAIRA Attending Unavailable AICHHOLZ, ASSOCIATE EDITOR MAIRA Consulting Unavailable AICHHOLZ, ASSOCIATE EDITOR MAIRA Primary Care Unavailable AICHHOLZ, ASSOCIATE EDITOR MAIRA Admitting Unavailable Robert Hart Consulting Unavailable AICHHOLZ, ASSOCIATE EDITOR MAIRA Attending Unavailable AICHHOLZ, ASSOCIATE EDITOR MAIRA Consulting Unavailable AICHHOLZ, ASSOCIATE EDITOR MAIRA Primary Care Unavailable AICHHOLZ, ASSOCIATE EDITOR MAIRA Admitting Unavailable DR CORINE ANGELA V Consulting Unavailable AICHHOLZ, ASSOCIATE EDITOR MAIRA Primary Care Unavailable AICHHOLZ, ASSOCIATE EDITOR MAIRA Admitting Unavailable AICHHOLZ, ASSOCIATE EDITOR MAIRA Attending Unavailable AICHHOLZ, ASSOCIATE EDITOR MAIRA Consulting Unavailable DR TERI MAURO Admitting Unavailable AICHHOLZ, ASSOCIATE EDITOR MAIRA Primary Care Unavailable DR TERI MAURO Attending Unavailable DR TERI MAURO Consulting Unavailable DR CORINE ANGELA V Consulting Unavailable DR BRANDON MCFARLANE Consulting Unavailable DR NEHA GATICA Consulting Unavailable YECENIA MONTERO Consulting Unavailable Aichholz HVAC R INSTRUCTOR, Maira Unavailable Brandon Mcfarlane MD Primary Care Provider LORENZO ACE Attending Unavailable CHAPITO DAMICO Referring Unavailable AICHHOLGerson, MAIRA Begum Primary Care Unavailable AICHHOLZ, MAIRA Attending Unavailable AICHHOLZ, MAIRA Attending Unavailable AICHHOLZ, MAIRA Attending Unavailable AICHHOLZ, MAIRA Attending Unavailable AICHHOLZ, MAIRA Attending Unavailable AICHHOLZ, MAIRA Attending Unavailable Aichholz HVAC R INSTRUCTOR, Maira Unavailable Aichholz BARREL RACER-ASSOCIATE EDITOR, Maira J Primary Care Provider VICTOR MANUEL, [...] sources) Ciprofloxacin Drug Allergy 10-11-19 12 [facility] Repository (2 sources) metroNIDAZOLE Drug Allergy 10-11-19 12 [facility] Repository (6 sources) Penicillins; Translations: [PENICILLINS] Drug allergy (disorder) 10-11-19 12 [facility] Repository (2 sources) Sulfamethoxazole / Trimethoprim Drug Allergy 10-11-19 12 [facility] Repository (15 sources) Ciprofloxacin; Translations: [CIPROFLOXACIN] Drug [...] Drug Allergy 05-21-20 14 Other (See Comments) [facility] Repository (1 source) Penicillins Propensity to adverse [...] mouth in the morning. Active Continuous Glucose Professional System Administrator (FreeStyle Juilsa 2 [place]) device (7 sources) Start: 01-26-2024 Continuous Glu cose Professional System Administrator (FreeStyle Julisa 2 [place]) device 01/26/2024 Active Continuous Glucose Sensor (FreeStyle Julisa 2 Sensor) misc (7 sources) Start: 02-07-2024 Continuous Glu cose Sensor (FreeStyle Julisa 2 Sensor) [facility] 02/07/2024 Active doxycycline hyclate 100 mg oral [...] neuropathy, with long-term current use of insulin ([facility]) Apply 1 each topically in the [...] Start: 10-24-2022 take 2 tablets by mo [facility] in the morning PARoxetine (PAXIL) 10 [...] Active Start: 06-27-2022 take 1 tablet by [facility] in the morning rosuvastatin (Crestor) 5 MG [...] Start: 06-27-2022 take 2 tablets by mo [facility] at bedtime spironolactone (ALDACTONE) 25 mg tablet [...] Onset: 10-02-2022 Chronic Other aftercare (4 sources) residential (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; Translations: [LEAKAGE TESTER CURRENT USE OF INSULIN] Onset: 06-11-2022 Episodic [...] Onset: 06-11-2022 Episodic Other aftercare (1 source) watermelon inspector (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 of aspirin; Translations: [LEAKAGE TESTER CURRENT USE OF ASPIRIN] Onset: 06-11-2022 Episodic Other aftercare (1 source) Other 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 driver (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) drug therapy; Translations: [OTH SKILLED NURSING CURRENT DRUG THERAPY] Onset: 06-11-2022 Episodic Other aftercare (1 source) residential (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 of anticoagulants; Translations: [LEAKAGE TESTER CURRNT USE ANTICOAGULANTS] Onset: 11-27-2021 Episodic Other [...] 24 ABSOLUTE BASOPHIL 0.0 X10E9/L Normal 0.0-0.2 [facility] Comment on above: Performed By: #### C BRITTNEY, 14178-9, CMP, , 96953-7 #### [facility] ([id number]) [address] [place] [address] 01183 ABSOLUTE NEUTROPHIL 4.2 X10E9/L Normal 1.5-6.6 [facility] Comment on above: Performed By: #### C BRITTNEY, 96201-3, [facility], , 74843-9 #### [facility] ([id number]) [address] [place] [address] 82806 Basophils/100 WBC (Bld) 0.4 % Normal [facility] Comment on above: Performed By: #### C BCA, 81500-9, CMP, 97551-7, 55412-8 #### [facility] ([id number]) [address] [place] [address] 99696 Eosinophils (Bld) [#/Vol] 0.2 10*3/uL Normal 0.0-0.4 [facility] Comment on above: Performed By: #### C BRITTNEY, 60408-1, CMP, 41226-8, 52044-4 #### [facility] ([id number]) [address] [place] [address] 75243 Eosinophils/100 WBC (Bld) 2.6 % Normal [facility] Comment on above: Performed By: #### Casey LUGO, 98771-6, CMP, 88201-6, 26579-7 #### [facility] ([id number]) [address] [place] [address] 62776 Erythrocyte distribution width (RBC) [Ratio] 13.5 % Normal 11.5-15.0 [facility] Comment on above: Performed By: #### Casey LUGO, 52951-9, CMP, 42884-6, 44506-7 #### [facility] ([id number]) [address] [place] [address] 91483 Hematocrit (Bld) [Volume fraction] 48.3 % High 35-47 [facility] Comment on above: Performed By: #### Casey LUGO, 31109-3, CMP, 22576-8, 93265-2 #### [facility] ([id number]) [address] [place] [address] 57655 Hemoglobin (Bld) [Mass/Vol] 16.0 g/dL High 11.7-15.5 [facility] Comment on above: Performed By: #### Casey LUGO, 02875-4, CMP, 26056-5, 62961-4 #### [facility] ([id number]) [address] [place] [address] 28210 Lymphocytes (Bld) [#/Vol] 1.9 10*3/uL Normal 1.0-3.5 [facility] Comment on above: Performed By: #### Casey BCA, 57246-6, CMP, 81158-7, 52942-9 #### [facility] ([id number]) [address] [place] [address] 44245 Lymphocytes/100 WBC (Bld) 27.1 % Normal [facility] Comment on above: Performed By: #### Casey LUGO, 73051-0, CMP, 29451-7, 71182-4 #### [facility] ([id number]) [address] [place] [address] 32165 MCH (RBC) [Entitic mass] 31.5 pg Normal 27-34 [facility] Comment on above: Performed By: #### Casey LUGO, 66637-7, CMP, 20995-5, 29134-2 #### [facility] ([id number]) [address] [place] [address] 78495 MCHC (RBC) [Mass/Vol] 33.1 g/dL Normal 32-36 [facility] Comment on above: Performed By: #### Casey LUGO, 71564-4, CMP, 45483-5, 96102-4 #### [facility] ([id number]) [address] [place] [address] 85928 MCV (RBC) [Entitic vol] 95 fL Normal 80-100 [facility] Comment on above: Performed By: #### Casey LUGO, 77522-2, CMP, 57103-6, 26149-3 #### [facility] ([id number]) [address] [place] [address] 24172 Monocytes (Bld) [#/Vol] 0.7 10*3/uL Normal 0-0.9 [facility] Comment on above: Performed By: #### Casey LUGO, 44684-5, CMP, 25854-5, 16009-7 #### [facility] ([id number]) [address] [place] [address] 18385 Monocytes/100 WBC (Bld) 10.0 % Normal [facility] Comment on above: Performed By: #### Casey LUGO, 52550-1, CMP, 22890-3, 06468-4 #### [facility] ([id number]) [address] [place] [address] 88040 Neutrophils/100 WBC (Bld) 59.9 % Normal [facility] Comment on above: Performed By: #### Casey BCA, 41265-4, CMP, 87414-6, 99550-8 #### [facility] ([id number]) [address] [place] [address] 88055 Platelet mean volume (Bld) [Entitic vol] 9.0 fL Normal 7-12 [facility] Comment on above: Performed By: #### Casey LUGO, 33976-8, CMP, 82306-2, 42718-0 #### [facility] ([id number]) [address] [place] [address] 90588 Platelets (Bld) [#/Vol] 264 10*3/uL Normal 150-450 [facility] Comment on above: Performed By: #### Casey LUGO, 89427-7, CMP, 19375-3, 98654-1 #### [facility] ([id number]) [address] [place] [address] 60933 RBC COUNT 5.07 X10E12/L Normal 3.80-5.20 [facility] Comment on above: Performed By: #### Casey LUGO, 49910-5, CMP, 05022-5, 64690-7 #### [facility] ([id number]) [address] [place] [address] 90842 WBC (Bld) [#/Vol] 7.1 10*3/uL Normal 4.0-11.0 [facility] Comment on above: Performed By: #### Casey BCA, 38427-6, CMP, 10379-1, 96870-9 #### [facility] ([id number]) [address] [place] [address] 37503 COMPREHENSIVE METABOLIC PANE Blayne 01-22-2024 Albumin [Mass/Vol] 3.1 g/dL Low 3.2-5.3 [facility] Comment on above: Performed By: #### C BCA, 80675-9, CMP, 94477-5, 74473-2 #### [facility] ([id number]) [address] [place] [address] 74074 ALP [Catalytic activity/Vol] 98 U/L Normal 39-130 [facility] Comment on above: Performed By: #### C BCA, 29510-6, CMP, 46711-4, 63641-0 #### [facility] ([id number]) [address] [place] [address] 61533 ALT [Catalytic activity/Vol] 21 U/L Normal 0-31 [facility] Comment on above: Performed By: #### Casey BCA, 45268-5, CMP, 89844-9, 98958-0 #### [facility] ([id number]) [address] [place] [address] 25391 Anion gap [Moles/Vol] 7 mmol/L Normal 5-15 [facility] Comment on above: Performed By: #### C BCA, 20898-6, CMP, 40385-5, 70210-2 #### [facility] ([id number]) [address] [place] [address] 75240 AST [Catalytic activity/Vol] 19 U/L Normal 0-41 [facility] Comment on above: Performed By: #### C BCA, 77876-0, CMP, 49666-3, 75232-0 #### [facility] ([id number]) [address] [place] [address] 63405 Bilirubin [Mass/Vol] 0.5 mg/dL Normal 0.3-1.2 [facility] Comment on above: Performed By: #### C BCA, 27932-3, CMP, 53715-0, 43216-6 #### [facility] ([id number]) [address] [place] [address] 56698 Calcium [Mass/Vol] 8.9 mg/dL Normal 8.5-10.5 [facility] Comment on above: Performed By: #### C BCA, 46673-6, CMP, 71730-2, 78319-5 #### [facility] ([id number]) [address] [place] [address] 49747 Chloride [Moles/Vol] 100 mmol/L Normal 98-109 [facility] Comment on above: Performed By: #### C BCA, 99273-9, CMP, 13508-9, 96402-8 #### [facility] ([id number]) [address] [place] [address] 07838 CO2 [Moles/Vol] 31 mmol/L Normal 22-32 [facility] Comment on above: Performed By: #### C BCA, 17708-3, CMP, 11745-9, 98848-4 #### [facility] ([id number]) [address] [place] [address] 65800 Creatinine [Mass/Vol] 0.51 mg/dL Normal 0.40-1.00 [facility] Comment on above: Result Comment: METH OD TRACEABLE TO IDMS STANDARD Performed By: #### C BCA, 65667-4, CMP, 27170-5, 90652-9 #### [facility] ([id number]) [address] [place] [address] 58168 eGFR (CKD-EPI) NON-RACE DEPENDENT >90 Normal >59 [facility] Comment on above: Result Comment: Reported eGFR is based on the CKD-EPI 2020 equation that does not use a race coefficient. Performed By: #### C BCA, 07796-9, CMP, 29355-7, 93173-9 #### [facility] ([id number]) [address] [place] [address] 74429 Glucose [Mass/Vol] 153 mg/dL High 65-99 [facility] Comment on above: Performed By: #### C BCA, 76093-6, CMP, 02621-1, 84508-7 #### [facility] ([id number]) [address] [place] [address] 58446 Potassium [Moles/Vol] 4.0 mmol/L Normal 3.5-5.0 [facility] Comment on above: Performed By: #### C BCA, 47850-1, CMP, 46882-3, 67092-3 #### [facility] ([id number]) [address] [place] [address] 42474 Protein [Mass/Vol] 6.5 g/dL Normal 6.0-8.0 [facility] Comment on above: Performed By: #### C BCA, 98815-0, CMP, 08967-9, 85697-1 #### [facility] ([id number]) [address] [place] [address] 24680 Sodium [Moles/Vol] 138 mmol/L Normal 134-146 [facility] Comment on above: Performed By: #### Casey BCA, 55987-2, CMP, 48624-1, 51331-3 #### [facility] ([id number]) [address] [place] [address] 10159 Urea nitrogen [Mass/Vol] 20 mg/dL Normal 5-27 [facility] Comment on above: Performed By: #### C BCA, 60332-3, CMP, 17888-5, 88631-2 #### [facility] ([id number]) [address] [place] [address] 70678 MAGNESIUMon 01-22-2024 Magnesium [Mass/Vol] 2.2 mg/dL Normal 1.8-2.6 [facility] Comment on above: Performed By: #### C BCA, 84918-7, CMP, 29962-4, 65338-8 #### [facility] ([id number]) [address] [place] [address] 18606 CBC AND AUTO DIFFon 01-20- 24 ABSOLUTE BASOPHIL 0.0 X10E9/L Normal 0.0-0.2 [facility] Comment on above: Performed By: #### Casey BCA, 72543-1, CMP, 52505-4, 92444-3 #### [facility] ([id number]) [address] [place] [address] 35211 ABSOLUTE NEUTROPHIL 4.5 X10E9/L Normal 1.5-6.6 [facility] Comment on above: Performed By: #### Casey LUGO, 65530-6, CMP, 45891-8, 23985-2 #### [facility] ([id number]) [address] [place] [address] 32100 Basophils/100 WBC (Bld) 0.3 % Normal [facility] Comment on above: Performed By: #### Casey BCA, 37955-6, CMP, 01475-3, 99268-4 #### [facility] ([id number]) [address] [place] [address] 81369 Eosinophils (Bld) [#/Vol] 0.2 10*3/uL Normal 0.0-0.4 [facility] Comment on above: Performed By: #### Casey BCA, 62485-9, CMP, 69530-1, 24762-5 #### [facility] ([id number]) [address] [place] [address] 53325 Eosinophils/100 WBC (Bld) 2.4 % Normal [facility] Comment on above: Performed By: #### Casey BCA, 71078-2, CMP, 33470-2, 35071-4 #### [facility] ([id number]) [address] [place] [address] 95561 Erythrocyte distribution width (RBC) [Ratio] 13.6 % Normal 11.5-15.0 [facility] Comment on above: Performed By: #### Casey LUGO, 27368-2, CMP, 13183-1, 49965-2 #### [facility] ([id number]) [address] [place] [address] 07728 Hematocrit (Bld) [Volume fraction] 48.3 % High 35-47 [facility] Comment on above: Performed By: #### Casey LUGO, 67236-3, CMP, 40836-6, 00938-1 #### [facility] ([id number]) [address] [place] [address] 42238 Hemoglobin (Bld) [Mass/Vol] 16.1 g/dL High 11.7-15.5 [facility] Comment on above: Performed By: #### Casey LUGO, 04849-0, CMP, 29874-3, 05735-5 #### [facility] ([id number]) [address] [place] [address] 73524 Lymphocytes (Bld) [#/Vol] 1.8 10*3/uL Normal 1.0-3.5 [facility] Comment on above: Performed By: #### Casey LUGO, 42087-4, CMP, 29429-5, 91437-5 #### [facility] ([id number]) [address] [place] [address] 14844 Lymphocytes/100 WBC (Bld) 24.9 % Normal [facility] Comment on above: Performed By: #### Casey LUGO, 71868-5, CMP, 76369-7, 50595-2 #### [facility] ([id number]) [address] [place] [address] 55811 MCH (RBC) [Entitic mass] 31.7 pg Normal 27-34 [facility] Comment on above: Performed By: #### Casey BCA, 23994-4, CMP, 81922-7, 53519-5 #### [facility] ([id number]) [address] [place] [address] 63488 MCHC (RBC) [Mass/Vol] 33.4 g/dL Normal 32-36 [facility] Comment on above: Performed By: #### Casey BCA, 67269-7, CMP, 96590-2, 49662-6 #### [facility] ([id number]) [address] [place] [address] 99074 MCV (RBC) [Entitic vol] 95 fL Normal 80-100 [facility] Comment on above: Performed By: #### Casey LUGO, 23405-7, CMP, 98062-4, 17721-6 #### [facility] ([id number]) [address] [place] [address] 91185 Monocytes (Bld) [#/Vol] 0.9 10*3/uL Normal 0-0.9 [facility] Comment on above: Performed By: #### Casey LUGO, 52230-5, CMP, 80751-3, 95629-7 #### [facility] ([id number]) [address] [place] [address] 51042 Monocytes/100 WBC (Bld) 12.0 % Normal [facility] Comment on above: Performed By: #### Casey BCA, 13367-3, CMP, 43282-1, 02506-3 #### [facility] ([id number]) [address] [place] [address] 32345 Neutrophils/100 WBC (Bld) 60.4 % Normal [facility] Comment on above: Performed By: #### Casey BCA, 08048-6, CMP, 49658-3, 84776-9 #### [facility] ([id number]) [address] [place] [address] 46138 Platelet mean volume (Bld) [Entitic vol] 9.6 fL Normal 7-12 [facility] Comment on above: Performed By: #### C BRITTNEY, 24837-8, CMP, 96239-7, 69636-4 #### [facility] ([id number]) [address] [place] [address] 46418 Platelets (Bld) [#/Vol] 230 10*3/uL Normal 150-450 [facility] Comment on above: Performed By: #### Casey LUGO, 51173-7, CMP, 07322-3, 09137-7 #### [facility] ([id number]) [address] [place] [address] 97709 RBC COUNT 5.09 X10E12/L Normal 3.80-5.20 [facility] Comment on above: Performed By: #### Casey LUGO, 18281-7, CMP, 60058-6, 42175-9 #### [facility] ([id number]) [address] [place] [address] 89730 WBC (Bld) [#/Vol] 7.4 10*3/uL Normal 4.0-11.0 [facility] Comment on above: Performed By: #### Casey LUGO, 69978-0, CMP, 08255-3, 20082-4 #### [facility] ([id number]) [address] [place] [address] 45636 COMPREHENSIVE METABOLIC PANE Blayne 01-21-2024 Albumin [Mass/Vol] 3.1 g/dL Low 3.2-5.3 [facility] Comment on above: Performed By: #### Casey LUGO, 85136-5, CMP, 30965-1, 55071-3 #### [facility] ([id number]) [address] [place] [address] 24714 ALP [Catalytic activity/Vol] 96 U/L Normal 39-130 [facility] Comment on above: Performed By: #### C BCA, 20671-6, CMP, 72433-2, 00638-2 #### [facility] ([id number]) [address] [place] [address] 82317 ALT [Catalytic activity/Vol] 18 U/L Normal 0-31 [facility] Comment on above: Performed By: #### C BCA, 16206-6, CMP, 18855-9, 56154-9 #### [facility] ([id number]) [address] [place] [address] 90655 Anion gap [Moles/Vol] 7 mmol/L Normal 5-15 [facility] Comment on above: Performed By: #### C BCA, 55816-1, CMP, 05430-1, 25185-4 #### [facility] ([id number]) [address] [place] [address] 72139 AST [Catalytic activity/Vol] 16 U/L Normal 0-41 [facility] Comment on above: Performed By: #### C BCA, 82923-2, CMP, 25290-2, 96980-6 #### [facility] ([id number]) [address] [place] [address] 97622 Bilirubin [Mass/Vol] 0.5 mg/dL Normal 0.3-1.2 [facility] Comment on above: Performed By: #### C BCA, 06017-1, CMP, 96998-0, 43419-9 #### [facility] ([id number]) [address] [place] [address] 34115 Calcium [Mass/Vol] 9.1 mg/dL Normal 8.5-10.5 [facility] Comment on above: Performed By: #### C BCA, 55976-9, CMP, 36161-6, 58558-0 #### [facility] ([id number]) [address] [place] [address] 26704 Chloride [Moles/Vol] 98 mmol/L Normal 98-109 [facility] Comment on above: Performed By: #### C BCA, 76766-3, CMP, 86979-9, 64432-7 #### [facility] ([id number]) [address] [place] [address] 95008 CO2 [Moles/Vol] 33 mmol/L High 22-32 [facility] Comment on above: Performed By: #### C BCA, 09866-1, CMP, 37997-7, 83835-1 #### [facility] ([id number]) [address] [place] [address] 85569 Creatinine [Mass/Vol] 0.45 mg/dL Normal 0.40-1.00 [facility] Comment on above: Result Comment: METH OD TRACEABLE TO IDMS STANDARD Performed By: #### C BRITTNEY, 58497-3, CMP, 06429-1, 77491-4 #### [facility] ([id number]) [address] [place] [address] 59405 eGFR (CKD-EPI) NON-RACE DEPENDENT >90 Normal >59 [facility] Comment on above: Result Comment: Reported eGFR is based on the CKD-EPI 2020 equation that does not use a race coefficient. Performed By: #### C BCA, 14451-6, CMP, 24415-0, 66545-2 #### [facility] ([id number]) [address] [place] [address] 91661 Glucose [Mass/Vol] 138 mg/dL High 65-99 [facility] Comment on above: Performed By: #### C BCA, 22813-0, CMP, 52086-2, 72052-1 #### [facility] ([id number]) [address] [place] [address] 31069 Potassium [Moles/Vol] 3.8 mmol/L Normal 3.5-5.0 [facility] Comment on above: Performed By: #### C BRITTNEY, 81152-0, CMP, 17195-9, 79555-9 #### [facility] ([id number]) [address] [place] [address] 83400 Protein [Mass/Vol] 6.6 g/dL Normal 6.0-8.0 [facility] Comment on above: Performed By: #### C BRITTNEY, 02935-0, CMP, 90425-9, 13779-7 #### [facility] ([id number]) [address] [place] [address] 23983 Sodium [Moles/Vol] 138 mmol/L Normal 134-146 [facility] Comment on above: Performed By: #### Casey LUGO, 02477-5, CMP, , 23739-0 #### [facility] ([id number]) [address] [place] [address] 71537 Urea nitrogen [Mass/Vol] 18 mg/dL Normal 5-27 [facility] Comment on above: Performed By: #### Casey LUGO, 57426-4, CMP, 09306-3, 38248-0 #### [facility] ([id number]) [address] [place] [address] 57312 Glucose Glucometer (BldC) [M ass/Vol]on 01-21-2024 Glucose [Mass/Vol] 312 mg/dL High 65-99 [facility] Glucose [Mass/Vol] 285 mg/dL High 65-99 [facility] Glucose [Mass/Vol] 178 mg/dL High 65-99 [facility] MAGNESIUMon 01-21-2024 Magnesium [Mass/Vol] 2.2 mg/dL Normal 1.8-2.6 [facility] Comment on above: Performed By: #### C BCA, 51214-1, CMP, , 29119-6 #### [facility] ([id number]) [address] [place] [address] 50440 POTASSIUMon 01-21-2024 Potassium [Moles/Vol] 4.4 mmol/L Normal 3.5-5.0 [facility] Comment on above: Performed By: #### Casey LUGO, 57195-1, CMP, , 36293-6 #### [facility] ([id number]) [address] [place] [address] 45905 CBC AND AUTO DIFFon 01-20-20 ABSOLUTE BASOPHIL 0.0 X10E9/L Normal 0.0-0.2 [facility] Comment on above: Performed By: #### Casey LUGO, 64018-3, CMP, 07787-6, 74400-8 #### [facility] ([id number]) [address] [place] [address] 12376 ABSOLUTE NEUTROPHIL 6.3 X10E9/L Normal 1.5-6.6 [facility] Comment on above: Performed By: #### Casey LUGO, 51551-3, CMP, , 44910-9 #### [facility] ([id number]) [address] [place] [address] 87587 Basophils/100 WBC (Bld) 0.5 % Normal [facility] Comment on above: Performed By: #### Casey BCA, 95491-4, CMP, 32105-6, 76893-5 #### [facility] ([id number]) [address] [place] [address] 99536 Eosinophils (Bld) [#/Vol] 0.1 10*3/uL Normal 0.0-0.4 [facility] Comment on above: Performed By: #### Casey LUGO, 43291-5, CMP, 72165-5, 71882-5 #### [facility] ([id number]) [address] [place] [address] 04775 Eosinophils/100 WBC (Bld) 1.3 % Normal [facility] Comment on above: Performed By: #### Casey LUGO, 07113-3, CMP, 51688-4, 33491-8 #### [facility] ([id number]) [address] [place] [address] 95192 Erythrocyte distribution width (RBC) [Ratio] 13.6 % Normal 11.5-15.0 [facility] Comment on above: Performed By: #### Casey LUGO, 03204-8, [facility], 58587-8, 22732-6 #### [facility] ([id number]) [address] [place] [address] 98116 Hematocrit (Bld) [Volume fraction] 47.5 % High 35-47 [facility] Comment on above: Performed By: #### Casey LUGO, 56390-7, [facility], , 15528-8 #### [facility] ([id number]) [address] [place] [address] 76014 Hemoglobin (Bld) [Mass/Vol] 16.1 g/dL High 11.7-15.5 [facility] Comment on above: Performed By: #### Casey LUGO, 45020-9, [facility], , 15688-0 #### [facility] ([id number]) [address] [place] [address] 78317 Lymphocytes (Bld) [#/Vol] 1.8 10*3/uL Normal 1.0-3.5 [facility] Comment on above: Performed By: #### Casey LUGO, 86664-7, CMP, 10095-5, 82675-6 #### [facility] ([id number]) [address] [place] [address] 59209 Lymphocytes/100 WBC (Bld) 19.8 % Normal [facility] Comment on above: Performed By: #### C BCA, 55071-4, CMP, 56750-9, 61574-7 #### [facility] ([id number]) [address] [place] [address] 15098 MCH (RBC) [Entitic mass] 32.2 pg Normal 27-34 [facility] Comment on above: Performed By: #### Casey BCA, 12381-5, CMP, 45291-0, 28208-5 #### [facility] ([id number]) [address] [place] [address] 63186 MCHC (RBC) [Mass/Vol] 33.8 g/dL Normal 32-36 [facility] Comment on above: Performed By: #### Casey LUGO, 39033-3, CMP, 11635-5, 27668-4 #### [facility] ([id number]) [address] [place] [address] 82390 MCV (RBC) [Entitic vol] 95 fL Normal 80-100 [facility] Comment on above: Performed By: #### Casey LUGO, 01013-5, CMP, 51330-0, 32568-1 #### [facility] ([id number]) [address] [place] [address] 61389 Monocytes (Bld) [#/Vol] 0.9 10*3/uL Normal 0-0.9 [facility] Comment on above: Performed By: #### Casey BCA, 04196-2, CMP, 49697-9, 20258-4 #### [facility] ([id number]) [address] [place] [address] 09065 Monocytes/100 WBC (Bld) 9.3 % Normal [facility] Comment on above: Performed By: #### Casey BCA, 30609-3, CMP, 53996-0, 56099-3 #### [facility] ([id number]) [address] [place] [address] 39159 Neutrophils/100 WBC (Bld) 69.1 % Normal [facility] Comment on above: Performed By: #### Casey LUGO, 33391-1, CMP, 08065-6, 41274-3 #### [facility] ([id number]) [address] [place] [address] 92225 Platelet mean volume (Bld) [Entitic vol] 9.3 fL Normal 7-12 [facility] Comment on above: Performed By: #### Casey LUGO, 52063-9, CMP, 08144-0, 74979-3 #### [facility] ([id number]) [address] [place] [address] 81154 Platelets (Bld) [#/Vol] 213 10*3/uL Normal 150-450 [facility] Comment on above: Performed By: #### Casey LUGO, 93500-8, CMP, 69602-9, 71659-8 #### [facility] ([id number]) [address] [place] [address] 29089 RBC COUNT 4.99 X10E12/L Normal 3.80-5.20 [facility] Comment on above: Performed By: #### Casey LUGO, 12688-4, CMP, 22638-7, 34479-2 #### [facility] ([id number]) [address] [place] [address] 00893 WBC (Bld) [#/Vol] 9.2 10*3/uL Normal 4.0-11.0 [facility] Comment on above: Performed By: #### Casey LUGO, 47170-0, CMP, 48288-6, 06247-1 #### [facility] ([id number]) [address] [place] [address] 59885 COMPREHENSIVE METABOLIC PANE Blayne 01-20-2024 Albumin [Mass/Vol] 3.1 g/dL Low 3.2-5.3 [facility] Comment on above: Performed By: #### C BCA, 00309-8, CMP, 15626-5, 57416-3 #### [facility] ([id number]) [address] [place] [address] 51597 ALP [Catalytic activity/Vol] 96 U/L Normal 39-130 [facility] Comment on above: Performed By: #### C BCA, 23529-8, CMP, 20164-8, 30437-8 #### [facility] ([id number]) [address] [place] [address] 62968 ALT [Catalytic activity/Vol] 19 U/L Normal 0-31 [facility] Comment on above: Performed By: #### C BCA, 03868-7, CMP, 80322-9, 96356-1 #### [facility] ([id number]) [address] [place] [address] 67761 Anion gap [Moles/Vol] 9 mmol/L Normal 5-15 [facility] Comment on above: Performed By: #### C BCA, 43501-5, CMP, 60739-1, 27086-6 #### [facility] ([id number]) [address] [place] [address] 00523 AST [Catalytic activity/Vol] 17 U/L Normal 0-41 [facility] Comment on above: Performed By: #### C BCA, 65511-4, CMP, 37468-7, 49276-2 #### [facility] ([id number]) [address] [place] [address] 63486 Bilirubin [Mass/Vol] 0.5 mg/dL Normal 0.3-1.2 [facility] Comment on above: Performed By: #### C BCA, 40606-3, CMP, 09168-6, 29576-1 #### [facility] ([id number]) [address] [place] [address] 26320 Calcium [Mass/Vol] 8.8 mg/dL Normal 8.5-10.5 [facility] Comment on above: Performed By: #### C BCA, 41870-2, CMP, 31219-4, 15189-9 #### [facility] ([id number]) [address] [place] [address] 59228 Chloride [Moles/Vol] 98 mmol/L Normal 98-109 [facility] Comment on above: Performed By: #### C BRITTNEY, 94238-6, CMP, 07525-0, 26073-1 #### [facility] ([id number]) [address] [place] [address] 54245 CO2 [Moles/Vol] 30 mmol/L Normal 22-32 [facility] Comment on above: Performed By: #### C BRITTNEY, 95616-9, CMP, 20246-3, 60272-1 #### [facility] ([id number]) [address] [place] [address] 77292 Creatinine [Mass/Vol] 0.50 mg/dL Normal 0.40-1.00 [facility] Comment on above: Result Comment: METH OD TRACEABLE TO IDMS STANDARD Performed By: #### C BRITTNEY, 33323-0, CMP, 73315-7, 00003-0 #### [facility] ([id number]) [address] [place] [address] 89072 eGFR (CKD-EPI) NON-RACE DEPENDENT >90 Normal >59 [facility] Comment on above: Result Comment: Reported eGFR is based on the CKD-EPI 2020 equation that does not use a race coefficient. Performed By: #### C BCA, 85184-5, CMP, 62994-1, 97337-7 #### [facility] ([id number]) [address] [place] [address] Glucose [Mass/Vol] 282 mg/dL High 65-99 [facility] Comment on above: Performed By: #### C BCA, 99691-0, CMP, 61673-9, 71733-6 #### [facility] ([id number]) [address] [place] [address] 19703 Potassium [Moles/Vol] 4.2 mmol/L Normal 3.5-5.0 [facility] Comment on above: Performed By: #### C BCA, 80255-0, CMP, 43888-0, 03183-6 #### [facility] ([id number]) [address] [place] [address] 27758 Protein [Mass/Vol] 6.2 g/dL Normal 6.0-8.0 [facility] Comment on above: Performed By: #### Casey LUGO, 12404-2, CMP, 37581-5, 42876-5 #### [facility] ([id number]) [address] [place] [address] 62225 Sodium [Moles/Vol] 137 mmol/L Normal 134-146 [facility] Comment on above: Performed By: #### Casey BCA, 86833-1, CMP, 61828-1, 05899-7 #### [facility] ([id number]) [address] [place] [address] 37344 Urea nitrogen [Mass/Vol] 18 mg/dL Normal 5-27 [facility] Comment on above: Performed By: #### C BCA, 87653-1, CMP, 43276-4, 35465-6 #### [facility] ([id number]) [address] [place] [address] 43878 Glucose Glucometer (BldC) [M ass/Vol]on 01-20-2024 Glucose [Mass/Vol] 277 mg/dL High 65-99 [facility] Glucose [Mass/Vol] 174 mg/dL High 65-99 [facility] Glucose [Mass/Vol] 324 mg/dL High 65-99 [facility] Glucose [Mass/Vol] 172 mg/dL High 65-99 [facility] MAGNESIUMon 01-20-2024 Magnesium [Mass/Vol] 2.0 mg/dL Normal 1.8-2.6 [facility] Comment on above: Performed By: #### Casey LUGO, 99178-9, CMP, 42229-5, 82741-7 #### [facility] ([id number]) [address] [place] [address] 24252 CBC AND AUTO DIFFon 01-19-20 ABSOLUTE BASOPHIL 0.0 X10E9/L Normal 0.0-0.2 [facility] Comment on above: Performed By: #### Casey LUGO, 54920-7, CMP, 21310-0, 69912-0 #### [facility] ([id number]) [address] [place] [address] 61540 ABSOLUTE NEUTROPHIL 7.7 X10E9/L High 1.5-6.6 [facility] Comment on above: Performed By: #### Casey LUGO, 56243-6, CMP, , 54837-2 #### [facility] ([id number]) [address] [place] [address] 42242 Basophils/100 WBC (Bld) 0.4 % Normal [facility] Comment on above: Performed By: #### Casey LUGO, 89243-3, CMP, 53854-1, 52058-6 #### [facility] ([id number]) [address] [place] [address] 66672 Eosinophils (Bld) [#/Vol] 0.2 10*3/uL Normal 0.0-0.4 [facility] Comment on above: Performed By: #### Casey LUGO, 32133-4, CMP, 33156-3, 99963-7 #### [facility] ([id number]) [address] [place] [address] 26430 Eosinophils/100 WBC (Bld) 1.7 % Normal [facility] Comment on above: Performed By: #### Casey LUGO, 93843-0, CMP, 53554-9, 84219-3 #### [facility] ([id number]) [address] [place] [address] 20846 Erythrocyte distribution width (RBC) [Ratio] 13.7 % Normal 11.5-15.0 [facility] Comment on above: Performed By: #### Casey LUGO, 08178-4, CMP, 40992-5, 89167-1 #### [facility] ([id number]) [address] [place] [address] 73962 Hematocrit (Bld) [Volume fraction] 48.3 % High 35-47 [facility] Comment on above: Performed By: #### Casey LUGO, 77542-7, [facility], , 60695-4 #### [facility] ([id number]) [address] [place] [address] 79139 Hemoglobin (Bld) [Mass/Vol] 15.9 g/dL High 11.7-15.5 [facility] Comment on above: Performed By: #### Casey LUGO, 72712-0, CMP, , 50358-6 #### [facility] ([id number]) [address] [place] [address] 75704 Lymphocytes (Bld) [#/Vol] 2.2 10*3/uL Normal 1.0-3.5 [facility] Comment on above: Performed By: #### Casey LUGO, 84140-8, CMP, 76611-4, 44138-8 #### [facility] ([id number]) [address] [place] [address] 66163 Lymphocytes/100 WBC (Bld) 20.2 % Normal [facility] Comment on above: Performed By: #### Casey BCA, 14186-9, CMP, 42204-7, 77326-1 #### [facility] ([id number]) [address] [place] [address] 41877 MCH (RBC) [Entitic mass] 31.1 pg Normal 27-34 [facility] Comment on above: Performed By: #### Casey BCA, 88724-0, CMP, 64222-4, 10319-6 #### [facility] ([id number]) [address] [place] [address] 21896 MCHC (RBC) [Mass/Vol] 32.9 g/dL Normal 32-36 [facility] Comment on above: Performed By: #### Casey LUGO, 42094-3, CMP, 03308-5, 43179-0 #### [facility] ([id number]) [address] [place] [address] 68111 MCV (RBC) [Entitic vol] 95 fL Normal 80-100 [facility] Comment on above: Performed By: #### Casey LUGO, 43603-9, CMP, 57008-3, 94838-0 #### [facility] ([id number]) [address] [place] [address] 48110 Monocytes (Bld) [#/Vol] 0.9 10*3/uL Normal 0-0.9 [facility] Comment on above: Performed By: #### Casey BCA, 28108-8, CMP, 37558-5, 60462-6 #### [facility] ([id number]) [address] [place] [address] 81375 Monocytes/100 WBC (Bld) 8.1 % Normal [facility] Comment on above: Performed By: #### Casey LUGO, 77275-8, CMP, 36342-7, 40688-6 #### [facility] ([id number]) [address] [place] [address] 51459 Neutrophils/100 WBC (Bld) 69.6 % Normal [facility] Comment on above: Performed By: #### Casey LUGO, 85411-6, CMP, 69043-5, 67139-6 #### [facility] ([id number]) [address] [place] [address] 72981 Platelet mean volume (Bld) [Entitic vol] 9.9 fL Normal 7-12 [facility] Comment on above: Performed By: #### Casey LUGO, 83842-8, CMP, 06783-0, 23638-1 #### [facility] ([id number]) [address] [place] [address] 72775 Platelets (Bld) [#/Vol] 219 10*3/uL Normal 150-450 [facility] Comment on above: Performed By: #### Casey LUGO, 14716-7, CMP, 00198-6, 74472-3 #### [facility] ([id number]) [address] [place] [address] 17297 RBC COUNT 5.11 X10E12/L Normal 3.80-5.20 [facility] Comment on above: Performed By: #### Casey LUGO, 85951-2, CMP, 83913-2, 44566-7 #### [facility] ([id number]) [address] [place] [address] 96652 WBC (Bld) [#/Vol] 11.0 10*3/uL Normal 4.0-11.0 [facility] Comment on above: Performed By: #### Casey LUGO, 09588-9, CMP, 40109-4, 05603-1 #### [facility] ([id number]) [address] [place] [address] 82256 COMPREHENSIVE METABOLIC PANE Blayne 01-19-2024 Albumin [Mass/Vol] 2.9 g/dL Low 3.2-5.3 [facility] Comment on above: Performed By: #### C BCA, 69220-1, CMP, 59349-3, 29339-4 #### [facility] ([id number]) [address] [place] [address] 22030 ALP [Catalytic activity/Vol] 112 U/L Normal 39-130 [facility] Comment on above: Performed By: #### C BCA, 81432-6, CMP, 15417-1, 01315-3 #### [facility] ([id number]) [address] [place] [address] 24660 ALT [Catalytic activity/Vol] 21 U/L Normal 0-31 [facility] Comment on above: Performed By: #### Casey BCA, 55866-5, CMP, 96692-8, 07376-4 #### [facility] ([id number]) [address] [place] [address] 63254 Anion gap [Moles/Vol] 9 mmol/L Normal 5-15 [facility] Comment on above: Performed By: #### Casey BCA, 58830-4, CMP, 32704-5, 73023-7 #### [facility] ([id number]) [address] [place] [address] 08158 AST [Catalytic activity/Vol] 16 U/L Normal 0-41 [facility] Comment on above: Performed By: #### C BCA, 75397-4, CMP, 29885-3, 87252-7 #### [facility] ([id number]) [address] [place] [address] 57854 Bilirubin [Mass/Vol] 0.5 mg/dL Normal 0.3-1.2 [facility] Comment on above: Performed By: #### Casey BCA, 56945-3, CMP, 15416-6, 26538-0 #### [facility] ([id number]) [address] [place] [address] 91707 Calcium [Mass/Vol] 8.9 mg/dL Normal 8.5-10.5 [facility] Comment on above: Performed By: #### C BCA, 16031-9, CMP, 59223-4, 87350-0 #### [facility] ([id number]) [address] [place] [address] 32656 Chloride [Moles/Vol] 98 mmol/L Normal 98-109 [facility] Comment on above: Performed By: #### C BCA, 04769-5, CMP, 54365-3, 81683-6 #### [facility] ([id number]) [address] [place] [address] 68467 CO2 [Moles/Vol] 29 mmol/L Normal 22-32 [facility] Comment on above: Performed By: #### C BCA, 22421-7, CMP, 26342-8, 19529-2 #### [facility] ([id number]) [address] [place] [address] 37848 Creatinine [Mass/Vol] 0.46 mg/dL Normal 0.40-1.00 [facility] Comment on above: Result Comment: METH OD TRACEABLE TO IDMS STANDARD Performed By: #### C BCA, 69548-4, CMP, 35936-7, 87770-7 #### [facility] ([id number]) [address] [place] [address] 40832 eGFR (CKD-EPI) NON-RACE DEPENDENT >90 Normal >59 [facility] Comment on above: Result Comment: Reported eGFR is based on the CKD-EPI 2020 equation that does not use a race coefficient. Performed By: #### C BCA, 41290-8, CMP, 13194-4, 60141-4 #### [facility] ([id number]) [address], [place] [address] Glucose [Mass/Vol] 168 mg/dL High 65-99 [facility] Comment on above: Performed By: #### C BCA, 38654-4, CMP, 17868-7, 91555-8 #### [facility] ([id number]) [address] [place] [address] 58138 Potassium [Moles/Vol] 3.7 mmol/L Normal 3.5-5.0 [facility] Comment on above: Performed By: #### C BCA, 99995-0, CMP, 19607-7, 99617-2 #### [facility] ([id number]) [address] [place] [address] 44185 Protein [Mass/Vol] 6.2 g/dL Normal 6.0-8.0 [facility] Comment on above: Performed By: #### Casey LUGO, 81093-8, CMP, 73410-8, 25405-7 #### [facility] ([id number]) [address] [place] [address] 14293 Sodium [Moles/Vol] 136 mmol/L Normal 134-146 [facility] Comment on above: Performed By: #### Casey BCA, 36331-4, CMP, 60472-4, 04529-1 #### [facility] ([id number]) [address] [place] [address] 24009 Urea nitrogen [Mass/Vol] 19 mg/dL Normal 5-27 [facility] Comment on above: Performed By: #### C BCA, 99956-9, CMP, 77754-3, 79380-2 #### [facility] ([id number]) [address] [place] [address] 79090 Glucose Glucometer (BldC) [M ass/Vol]on 01-19-2024 Glucose [Mass/Vol] 241 mg/dL High 65-99 [facility] Glucose [Mass/Vol] 203 mg/dL High 65-99 [facility] Glucose [Mass/Vol] 237 mg/dL High 65-99 [facility] MAGNESIUMon 01-19-2024 Magnesium [Mass/Vol] 2.0 mg/dL Normal 1.8-2.6 [facility] Comment on above: Performed By: #### C BRITTNEY, 31009-2, CMP, 29715-5, 23815-2 #### [facility] ([id number]) [address] [place] [address] 31418 POTASSIUMon 01-19-2024 Potassium [Moles/Vol] 4.4 mmol/L Normal 3.5-5.0 [facility] Comment on above: Performed By: #### C BRITTNEY, 25461-8, CMP, 51046-3, 00100-0 #### [facility] ([id number]) [address] [place] [address] [place] [address] URINALYSISon 01-19-2024 Bilirubin Ql (U) Negative Normal NEG [facility] Comment on above: Performed By: #### C BRITTNEY, 60355-3, CMP, , 17146-7 #### [facility] ([id number]) [address] [place] [address] [place] [address] BLOOD/HGB SMALL Abnormal NEG [facility] Comment on above: Performed By: #### C BRITTNEY, 97883-9, CMP, , 33984-8 #### [facility] ([id number]) [address] [place] [address], [place] [address] Color (U) YELLOW Normal YELLOW [facility] Comment on above: Performed By: #### C BRITTNEY, 89546-5, CMP, , 44358-7 #### [facility] ([id number]) [address] [place] [address] [place] [address] Glucose Ql (U) >1000 Abnormal NEG [facility] Comment on above: Performed By: #### C BCA, 95627-8, CMP, 73788-4, 49872-7 #### [facility] ([id number]) [address] [place] [address] 01221 Ketones Ql (U) Negative Normal NEG [facility] Comment on above: Performed By: #### C BCA, 53825-1, CMP, 25870-8, 39874-2 #### [facility] ([id number]) [address] [place] [address] 05842 Leukocyte esterase Test strip Ql (U) MODERATE Abnormal NEG [facility] Comment on above: Result Comment: HIGH CONCENTRATIONS OF GLUCOSE MAY DECREASE THE REACTIVITY OF THE DIPSTICK LEUKOCYTE TEST PAD. Performed By: #### C BRITTNEY, 05080-4, CMP, 40054-3, 59520-3 #### [facility] ([id number]) [address] [place] [address] 84626 Nitrite Ql (U) Negative Normal NEG [facility] Comment on above: Performed By: #### C BRITTNEY, 46179-8, CMP, 47912-8, 96921-7 #### [facility] ([id number]) [address] [place] [address] 32816 pH (U) 6.5 [pH] Normal 5.0-8.5 [facility] Comment on above: Performed By: #### Casey LUGO, 48275-4, CMP, 31108-5, 98595-2 #### [facility] ([id number]) [address] [place] [address] 55849 Protein Ql (U) Negative Normal NEG [facility] Comment on above: Performed By: #### C BCA, 42619-5, CMP, 59069-3, 29032-9 #### [facility] ([id number]) [address] [place] [address] 04652 R.B.CELLS 10 /hpf High 0-5 [facility] Comment on above: Performed By: #### Casey LUGO, 30712-5, CMP, 25569-6, 18060-6 #### [facility] ([id number]) [address] [place] [address] 31325 Specific gravity (U) [Rel density] 1.010 Normal 1.003-1.035 [facility] Comment on above: Performed By: #### Casey LUGO, 06864-5, CMP, 24951-3, 30756-2 #### [facility] ([id number]) [address] [place] [address] 09011 SQUAMOUS EPITHELIUM 4 /hpf Normal 0-5 [facility] Comment on above: Performed By: #### Casey LUGO, 92146-9, CMP, 62466-0, 25784-8 #### [facility] ([id number]) [address] [place] [address] 61310 TRANSITIONAL EPITH 1 /hpf High 0 [facility] Comment on above: Performed By: #### Casey LUGO, 17592-8, CMP, 16692-4, 27195-6 #### [facility] ([id number]) [address] [place] [address] [place] [address] TURBIDITY CLOUDY Abnormal CLEAR [facility] Comment on above: Performed By: #### Casey LUGO, 36645-1, CMP, 83680-6, 23145-9 #### [facility] ([id number]) [address] [place] [address] 91636 Urobilinogen Qn (U) 0.2 {Beau'U}/dL Normal <1.1 [facility] Comment on above: Performed By: #### Casey LUGO, 48293-2, CMP, 93137-4, 87341-3 #### [facility] ([id number]) [address] [place] [address] 85169 W.B.CELLS >100 High 0-5 [facility] Comment on above: Performed By: #### Casey LUGO, 00140-7, CMP, 52445-8, 22174-6 #### [facility] ([id number]) [address] [place] [address] 84620 URINE CULTUREon 01-19-2024 Bacteria identified Cx Nom (U) CULTURE RESULTS 50-100,000 ORGANISMS/ML NORMAL UROGENITAL AMILCAR Normal [facility] Comment on above: Performed By: #### Casey LUGO, 59073-8, CMP, 01393-6, 01931-8 #### [facility] ([id number]) [address] [place] [address] 60263 CBC AND AUTO DIFFon 01-18-20 24 ABSOLUTE BASOPHIL 0.0 X10E9/L Normal 0.0-0.2 [facility] Comment on above: Performed By: #### Casey LUGO, 98219-0, [facility], , 30052-2 #### [facility] ([id number]) [address] [place] [address] 47102 ABSOLUTE NEUTROPHIL 8.3 X10E9/L High 1.5-6.6 [facility] Comment on above: Performed By: #### Casey LUGO, 09195-5, [facility], 34936-0, 02602-3 #### [facility] ([id number]) [address] [place] [address] 63714 Basophils/100 WBC (Bld) 0.3 % Normal [facility] Comment on above: Performed By: #### Casey LUGO, 53247-7, CMP, 26387-4, 35443-8 #### [facility] ([id number]) [address] [place] [address] 80370 Eosinophils (Bld) [#/Vol] 0.3 10*3/uL Normal 0.0-0.4 [facility] Comment on above: Performed By: #### Casey LUGO, 53427-1, CMP, 75863-9, 05015-3 #### [facility] ([id number]) [address] [place] [address] 57676 Eosinophils/100 WBC (Bld) 2.1 % Normal [facility] Comment on above: Performed By: #### Casey LUGO, 49842-7, CMP, 98643-1, 04358-7 #### [facility] ([id number]) [address] [place] [address] 18433 Erythrocyte distribution width (RBC) [Ratio] 13.6 % Normal 11.5-15.0 [facility] Comment on above: Performed By: #### Casey LUGO, 20096-7, CMP, 99453-1, 72107-4 #### [facility] ([id number]) [address] [place] [address] 08401 Hematocrit (Bld) [Volume fraction] 54.5 % High 35-47 [facility] Comment on above: Performed By: #### Casey LUGO, 43333-9, CMP, 81741-8, 81321-0 #### [facility] ([id number]) [address] [place] [address] 35072 Hemoglobin (Bld) [Mass/Vol] 18.1 g/dL High 11.7-15.5 [facility] Comment on above: Performed By: #### Casey BCA, 13595-2, CMP, 53622-4, 63048-3 #### [facility] ([id number]) [address] [place] [address] 92543 Lymphocytes (Bld) [#/Vol] 2.4 10*3/uL Normal 1.0-3.5 [facility] Comment on above: Performed By: #### Casey LUGO, 88896-7, CMP, 67243-7, 46383-1 #### [facility] ([id number]) [address] [place] [address] 21655 Lymphocytes/100 WBC (Bld) 20.1 % Normal [facility] Comment on above: Performed By: #### C BRITTNEY, 83054-1, CMP, 23451-6, 61169-8 #### [facility] ([id number]) [address] [place] [address] 32203 MCH (RBC) [Entitic mass] 31.3 pg Normal 27-34 [facility] Comment on above: Performed By: #### Casey LUGO, 13867-7, CMP, 26178-6, 87393-2 #### [facility] ([id number]) [address] [place] [address] 15816 MCHC (RBC) [Mass/Vol] 33.2 g/dL Normal 32-36 [facility] Comment on above: Performed By: #### Casey LUGO, 45079-6, CMP, 60803-4, 96601-1 #### [facility] ([id number]) [address] [place] [address] 86794 MCV (RBC) [Entitic vol] 94 fL Normal 80-100 [facility] Comment on above: Performed By: #### Casey LUGO, 82817-8, CMP, 40526-6, 40291-7 #### [facility] ([id number]) [address] [place] [address] 43062 Monocytes (Bld) [#/Vol] 0.8 10*3/uL Normal 0-0.9 [facility] Comment on above: Performed By: #### Casey LUGO, 11064-1, CMP, 39395-0, 66312-5 #### [facility] ([id number]) [address] [place] [address] 80159 Monocytes/100 WBC (Bld) 7.1 % Normal [facility] Comment on above: Performed By: #### Casey BCA, 31922-7, CMP, 19558-3, 77313-7 #### [facility] ([id number]) [address] [place] [address] 91026 Neutrophils/100 WBC (Bld) 70.4 % Normal [facility] Comment on above: Performed By: #### Casey LUGO, 81108-0, CMP, 88797-1, 61974-8 #### [facility] ([id number]) [address] [place] [address] 29744 Platelet mean volume (Bld) [Entitic vol] 10.1 fL Normal 7-12 [facility] Comment on above: Performed By: #### Casey LUGO, 68339-4, CMP, 70133-5, 21647-7 #### [facility] ([id number]) [address] [place] [address] 84568 Platelets (Bld) [#/Vol] 279 10*3/uL Normal 150-450 [facility] Comment on above: Performed By: #### Casey LUGO, 71449-3, CMP, 10632-0, 53306-6 #### [facility] ([id number]) [address] [place] [address] 85559 RBC COUNT 5.78 X10E12/L High 3.80-5.20 [facility] Comment on above: Performed By: #### Casey BCA, 95714-3, CMP, 33500-8, 09339-0 #### [facility] ([id number]) [address] [place] [address] 03840 WBC (Bld) [#/Vol] 11.8 10*3/uL High 4.0-11.0 [facility] Comment on above: Performed By: #### Casey LUGO, 74770-6, CMP, 10681-8, 10291-0 #### [facility] ([id number]) [address] [place] [address] 38344 COMPREHENSIVE METABOLIC PANE Blayne 01-18-2024 Albumin [Mass/Vol] 3.5 g/dL Normal 3.2-5.3 [facility] Comment on above: Performed By: #### C BCA, 95495-1, CMP, 40997-6, 37309-9 #### [facility] ([id number]) [address] [place] [address] 24190 ALP [Catalytic activity/Vol] 115 U/L Normal 39-130 [facility] Comment on above: Performed By: #### C BCA, 23303-0, CMP, 87557-9, 66716-5 #### [facility] ([id number]) [address] [place] [address] 29435 ALT [Catalytic activity/Vol] 25 U/L Normal 0-31 [facility] Comment on above: Performed By: #### C BCA, 89031-8, CMP, 91332-0, 87219-5 #### [facility] ([id number]) [address] [place] [address] 45542 Anion gap [Moles/Vol] 8 mmol/L Normal 5-15 [facility] Comment on above: Performed By: #### C BCA, 53986-0, CMP, 05193-7, 09833-8 #### [facility] ([id number]) [address] [place] [address] 89360 AST [Catalytic activity/Vol] 23 U/L Normal 0-41 [facility] Comment on above: Performed By: #### C BCA, 27389-3, CMP, 01350-1, 18281-9 #### [facility] ([id number]) [address] [place] [address] 12654 Bilirubin [Mass/Vol] 0.7 mg/dL Normal 0.3-1.2 [facility] Comment on above: Performed By: #### C BCA, 54185-8, CMP, 84215-7, 80665-5 #### [facility] ([id number]) [address] [place] [address] 38095 Calcium [Mass/Vol] 9.2 mg/dL Normal 8.5-10.5 [facility] Comment on above: Performed By: #### C BCA, 11727-5, CMP, 64526-4, 77379-7 #### [facility] ([id number]) [address] [place] [address] 12071 Chloride [Moles/Vol] 98 mmol/L Normal 98-109 [facility] Comment on above: Performed By: #### C BCA, 85436-3, CMP, 14618-7, 01040-1 #### [facility] ([id number]) [address] [place] [address] 51980 CO2 [Moles/Vol] 32 mmol/L Normal 22-32 [facility] Comment on above: Performed By: #### C BCA, 32201-0, CMP, 68202-1, 44587-7 #### [facility] ([id number]) [address] [place] [address] 62317 Creatinine [Mass/Vol] 0.56 mg/dL Normal 0.40-1.00 [facility] Comment on above: Result Comment: METH OD TRACEABLE TO IDMS STANDARD Performed By: #### C BCA, 20305-5, CMP, 15369-0, 72414-8 #### [facility] ([id number]) [address] [place] [address] 60980 eGFR (CKD-EPI) NON-RACE DEPENDENT >90 Normal >59 [facility] Comment on above: Result Comment: Reported eGFR is based on the CKD-EPI 2020 equation that does not use a race coefficient. Performed By: #### C BCA, 00044-1, CMP, 21030-0, 16299-8 #### [facility] ([id number]) [address] [place] [address] 56887 Glucose [Mass/Vol] 113 mg/dL High 65-99 [facility] Comment on above: Performed By: #### C BCA, 80848-4, CMP, 14872-7, 68541-1 #### [facility] ([id number]) [address] [place] [address] 81995 Potassium [Moles/Vol] 3.4 mmol/L Low 3.5-5.0 [facility] Comment on above: Performed By: #### C BCA, 03937-8, CMP, 75864-3, 39942-4 #### [facility] ([id number]) [address] [place] [address] 87763 Protein [Mass/Vol] 7.2 g/dL Normal 6.0-8.0 [facility] Comment on above: Performed By: #### C BCA, 63659-7, CMP, 35834-8, 11064-0 #### [facility] ([id number]) [address] [place] [address] 45903 Sodium [Moles/Vol] 138 mmol/L Normal 134-146 [facility] Comment on above: Performed By: #### C BCA, 14189-5, CMP, 88631-7, 34282-6 #### [facility] ([id number]) [address] [place] [address] 53084 Urea nitrogen [Mass/Vol] 14 mg/dL Normal 5-27 [facility] Comment on above: Performed By: #### C BCA, 36246-1, CMP, 06259-3, 15745-5 #### [facility] ([id number]) [address] [place] [address] 88731 Glucose Glucometer (BldC) [M ass/Vol]on 01-18-2024 Glucose [Mass/Vol] 256 mg/dL High 65-99 [facility] Glucose [Mass/Vol] 235 mg/dL High 65-99 [facility] Glucose [Mass/Vol] 302 mg/dL High 65-99 [facility] Glucose [Mass/Vol] 108 mg/dL High 65-99 [facility] MAGNESIUMon 01-18-2024 Magnesium [Mass/Vol] 2.1 mg/dL Normal 1.8-2.6 [facility] Comment on above: Performed By: #### C BRITTNEY, 03310-8, CMP, 46991-2, 14438-1 #### [facility] ([id number]) [address] [place] [address] 77232 POTASSIUMon 01-18-2024 Potassium [Moles/Vol] 4.7 mmol/L Normal 3.5-5.0 [facility] Comment on above: Performed By: #### Casey LUGO, 10101-0, CMP, 03995-7, 33699-2 #### [facility] ([id number]) [address] [place] [address] 01783 CBC AND AUTO DIFFon 01-17-20 24 ABSOLUTE BASOPHIL 0.0 X10E9/L Normal 0.0-0.2 [facility] Comment on above: Performed By: #### Casey LUGO, 07092-9, CMP, 82585-7, 64004-9 #### [facility] ([id number]) [address] [place] [address] 11980 ABSOLUTE NEUTROPHIL 6.1 X10E9/L Normal 1.5-6.6 [facility] Comment on above: Performed By: #### Casey LUGO, 01344-4, CMP, 75412-8, 61468-3 #### [facility] ([id number]) [address] [place] [address] 85423 Basophils/100 WBC (Bld) 0.4 % Normal [facility] Comment on above: Performed By: #### C BCA, 84774-9, CMP, 99834-1, 45192-4 #### [facility] ([id number]) [address] [place] [address] Eosinophils (Bld) [#/Vol] 0.3 10*3/uL Normal 0.0-0.4 [facility] Comment on above: Performed By: #### Casey BCA, 97974-7, CMP, 76591-9, 13306-3 #### [facility] ([id number]) [address] [place], [place] [id number] Eosinophils/100 WBC (Bld) 2.7 % Normal [facility] Comment on above: Performed By: #### Casey LUGO, 22718-0, CMP, 78301-6, 26857-3 #### [facility] ([id number]) [address] [place] [address] 84833 Erythrocyte distribution width (RBC) [Ratio] 13.6 % Normal 11.5-15.0 [facility] Comment on above: Performed By: #### Casey BCA, 01371-6, CMP, 34543-7, 16890-1 #### [facility] ([id number]) [address] [place] [address] 73684 Hematocrit (Bld) [Volume fraction] 50.3 % High 35-47 [facility] Comment on above: Performed By: #### Casey BCA, 89785-6, CMP, 38966-8, 43750-5 #### [facility] ([id number]) [address] [place] [address] 27271 Hemoglobin (Bld) [Mass/Vol] 16.9 g/dL High 11.7-15.5 [facility] Comment on above: Performed By: #### Casey BCA, 66789-1, CMP, 54836-7, 10385-9 #### [facility] ([id number]) [address] [place] [address] 10649 Lymphocytes (Bld) [#/Vol] 2.5 10*3/uL Normal 1.0-3.5 [facility] Comment on above: Performed By: #### Casey LUGO, 46988-7, CMP, 82467-3, 12255-6 #### [facility] ([id number]) [address] [place] [address] 79506 Lymphocytes/100 WBC (Bld) 25.5 % Normal [facility] Comment on above: Performed By: #### Casey LUGO, 20256-6, CMP, 58421-1, 96245-0 #### [facility] ([id number]) [address] [place] [address] 29277 MCH (RBC) [Entitic mass] 31.5 pg Normal 27-34 [facility] Comment on above: Performed By: #### Casey LUGO, 97817-3, CMP, 77134-7, 30498-5 #### [facility] ([id number]) [address] [place] [address] 72085 MCHC (RBC) [Mass/Vol] 33.7 g/dL Normal 32-36 [facility] Comment on above: Performed By: #### Casey LUGO, 10014-6, CMP, 65949-7, 48518-8 #### [facility] ([id number]) [address] [place] [address] 31200 MCV (RBC) [Entitic vol] 94 fL Normal 80-100 [facility] Comment on above: Performed By: #### Casey LUGO, 12550-1, CMP, 27199-7, 48068-5 #### [facility] ([id number]) [address] [place] [address] 45774 Monocytes (Bld) [#/Vol] 0.9 10*3/uL Normal 0-0.9 [facility] Comment on above: Performed By: #### Casey BCA, 58611-2, CMP, 56656-9, 01744-7 #### [facility] ([id number]) [address] [place] [address] 31288 Monocytes/100 WBC (Bld) 8.8 % Normal [facility] Comment on above: Performed By: #### Casey BCA, 36947-3, CMP, 63293-5, 55037-7 #### [facility] ([id number]) [address] [place] [address] 41116 Neutrophils/100 WBC (Bld) 62.6 % Normal [facility] Comment on above: Performed By: #### Casey LUGO, 32291-2, CMP, 12992-4, 55995-4 #### [facility] ([id number]) [address] [place] [address] 68497 Platelet mean volume (Bld) [Entitic vol] 9.3 fL Normal 7-12 [facility] Comment on above: Performed By: #### Casey LUGO, 44021-7, CMP, 66388-8, 92598-9 #### [facility] ([id number]) [address] [place] [address] 38560 Platelets (Bld) [#/Vol] 243 10*3/uL Normal 150-450 [facility] Comment on above: Performed By: #### Casey BCA, 62476-4, CMP, 75695-7, 22006-4 #### [facility] ([id number]) [address] [place] [address] 98982 RBC COUNT 5.38 X10E12/L High 3.80-5.20 [facility] Comment on above: Performed By: #### Casey LUGO, 25461-6, CMP, 23335-8, 68651-9 #### [facility] ([id number]) [address] [place] [address] 91638 WBC (Bld) [#/Vol] 9.8 10*3/uL Normal 4.0-11.0 [facility] Comment on above: Performed By: #### C BCA, 57882-5, CMP, 99102-5, 03122-0 #### [facility] ([id number]) [address] [place] [address] 71508 COMPREHENSIVE METABOLIC PANE Blayne 01-17-2024 Albumin [Mass/Vol] 3.1 g/dL Low 3.2-5.3 [facility] Comment on above: Performed By: #### C BCA, 12303-0, CMP, 10063-5, 61451-7 #### [facility] ([id number]) [address] [place] [address] 25755 ALP [Catalytic activity/Vol] 101 U/L Normal 39-130 [facility] Comment on above: Performed By: #### C BCA, 82475-1, CMP, 76802-8, 25258-4 #### [facility] ([id number]) [address] [place] [address] 03774 ALT [Catalytic activity/Vol] 17 U/L Normal 0-31 [facility] Comment on above: Performed By: #### C BCA, 19711-1, CMP, 92353-4, 67268-7 #### [facility] ([id number]) [address] [place] [address] 77475 Anion gap [Moles/Vol] 8 mmol/L Normal 5-15 [facility] Comment on above: Performed By: #### C BCA, 69722-8, CMP, 03724-5, 11121-7 #### [facility] ([id number]) [address] [place] [address] 06732 AST [Catalytic activity/Vol] 18 U/L Normal 0-41 [facility] Comment on above: Performed By: #### C BCA, 84707-9, CMP, 76871-2, 44570-9 #### [facility] ([id number]) [address] [place] [address] 39979 Bilirubin [Mass/Vol] 1.0 mg/dL Normal 0.3-1.2 [facility] Comment on above: Performed By: #### C BCA, 35455-1, CMP, , 82412-3 #### [facility] ([id number]) [address] [place] [address] 72345 Calcium [Mass/Vol] 8.4 mg/dL Low 8.5-10.5 [facility] Comment on above: Performed By: #### Casey BCA, 62616-8, CMP, , 58038-8 #### [facility] ([id number]) [address] [place] [address] 81810 Chloride [Moles/Vol] 95 mmol/L Low 98-109 [facility] Comment on above: Performed By: #### C BCA, 77594-4, CMP, , 88182-7 #### [facility] ([id number]) [address] [place] [address] 86831 CO2 [Moles/Vol] 30 mmol/L Normal 22-32 [facility] Comment on above: Performed By: #### C BCA, 99850-7, CMP, 60212-6, 38487-8 #### [facility] ([id number]) [address] [place] [address] 90377 Creatinine [Mass/Vol] 0.63 mg/dL Normal 0.40-1.00 [facility] Comment on above: Result Comment: METH OD TRACEABLE TO IDMS STANDARD Performed By: #### C BCA, 48233-6, CMP, 58083-2, 09047-8 #### [facility] ([id number]) [address] [place] [address] 26531 eGFR (CKD-EPI) NON-RACE DEPENDENT >90 Normal >59 [facility] Comment on above: Result Comment: Reported eGFR is based on the CKD-EPI 2020 equation that does not use a race coefficient. Performed By: #### C BCA, 39843-4, CMP, , 80344-1 #### [facility] ([id number]) [address] [place] [address] 41749 Glucose [Mass/Vol] 229 mg/dL High 65-99 [facility] Comment on above: Performed By: #### C BRITTNEY, 63679-1, CMP, , 17637-7 #### [facility] ([id number]) [address] [place] [address] 03456 Potassium [Moles/Vol] 2.8 mmol/L Low 3.5-5.0 [facility] Comment on above: Performed By: #### C BRITTNEY, 98985-9, CMP, , 20047-7 #### [facility] ([id number]) [address] [place] [address] 05446 Protein [Mass/Vol] 6.5 g/dL Normal 6.0-8.0 [facility] Comment on above: Performed By: #### C BCA, 88293-9, CMP, , 29242-5 #### [facility] ([id number]) [address] [place] [address] 21188 Sodium [Moles/Vol] 133 mmol/L Low 134-146 [facility] Comment on above: Performed By: #### C BCA, 55507-5, CMP, , 37149-0 #### [facility] ([id number]) [address] [place] [address] 81970 Urea nitrogen [Mass/Vol] 9 mg/dL Normal 5-27 [facility] Comment on above: Performed By: #### C BRITTNEY, 76629-9, CMP, 16648-7, 00878-2 #### [facility] ([id number]) [address] [place] [address] 66506 Glucose Glucometer (BldC) [M ass/Vol]on 01-17-2024 Glucose [Mass/Vol] 406 mg/dL Critically high 65-99 [facility] Glucose [Mass/Vol] 296 mg/dL High 65-99 [facility] Glucose [Mass/Vol] 302 mg/dL High 65-99 [facility] MAGNESIUMon 01-17-2024 Magnesium [Mass/Vol] 2.1 mg/dL Normal 1.8-2.6 [facility] Comment on above: Performed By: #### C BRITTNEY, 60676-9, [facility], 87679-0, 95255-0 #### [facility] ([id number]) [address] [place] [address] 23411 POTASSIUMon 01-17-2024 Potassium [Moles/Vol] 3.7 mmol/L Normal 3.5-5.0 [facility] Comment on above: Performed By: #### C BRITTNYE, 62473-7, [facility], 66054-6, 10283-1 #### [facility] ([id number]) [address] [place] [address] 54158 URINE CULTUREon 01-17-2024 Bacteria identified Cx Nom (U) CULTURE RESULTS 10-50,000 ORGANISMS/mL NORMAL UROGENITAL AMILCAR Normal [facility] Comment on above: Performed By: #### C BRITTNEY, 17224-0, CMP, 15446-2, 39352-6 #### [facility] ([id number]) [address] [place] [address] 44777 CBC AND AUTO DIFFon 01-16-20 24 ABSOLUTE BASOPHIL 0.0 X10E9/L Normal 0.0-0.2 [facility] Comment on above: Performed By: #### C BRITTNEY, 08516-0, CMP, 27284-2, 16155-2 #### [facility] ([id number]) [address] [place] [address] 74718 ABSOLUTE NEUTROPHIL 10.0 X10E9/L High 1.5-6.6 [facility] Comment on above: Performed By: #### C BCA, 53381-7, CMP, 45079-2, 57966-7 #### [facility] ([id number]) [address] [place] [address] 91909 Basophils/100 WBC (Bld) 0.3 % Normal [facility] Comment on above: Performed By: #### Casey LUGO, 90695-2, CMP, , 03410-2 #### [facility] ([id number]) [address] [place] [address] 12835 Eosinophils (Bld) [#/Vol] 0.1 10*3/uL Normal 0.0-0.4 [facility] Comment on above: Performed By: #### Casey LUGO, 43015-1, CMP, 10795-1, 80499-7 #### [facility] ([id number]) [address] [place] [address] 57868 Eosinophils/100 WBC (Bld) 0.9 % Normal [facility] Comment on above: Performed By: #### Casey BCA, 77205-2, CMP, 41751-5, 42164-9 #### [facility] ([id number]) [address] [place] [address] 13450 Erythrocyte distribution width (RBC) [Ratio] 13.5 % Normal 11.5-15.0 [facility] Comment on above: Performed By: #### Casey LUGO, 51983-8, CMP, 61996-7, 79634-7 #### [facility] ([id number]) [address] [place] [address] 72689 Hematocrit (Bld) [Volume fraction] 49.5 % High 35-47 [facility] Comment on above: Performed By: #### Casey LUGO, 40049-7, CMP, 82838-3, 74067-8 #### [facility] ([id number]) [address] [place] [address] 36416 Hemoglobin (Bld) [Mass/Vol] 16.8 g/dL High 11.7-15.5 [facility] Comment on above: Performed By: #### Casey LUGO, 03255-9, CMP, 15164-2, 65678-9 #### [facility] ([id number]) [address] [place] [address] 46429 Lymphocytes (Bld) [#/Vol] 1.9 10*3/uL Normal 1.0-3.5 [facility] Comment on above: Performed By: #### Casey LUGO, 79261-2, [facility], , 70799-4 #### [facility] ([id number]) [address] [place] [address] 96094 Lymphocytes/100 WBC (Bld) 14.4 % Normal [facility] Comment on above: Performed By: #### Casey LUGO, 95698-7, CMP, , 23430-2 #### [facility] ([id number]) [address] [place] [address] 93478 MCH (RBC) [Entitic mass] 31.7 pg Normal 27-34 [facility] Comment on above: Performed By: #### Casey LUGO, 84820-7, CMP, 01734-2, 06826-1 #### [facility] ([id number]) [address] [place] [address] 21191 MCHC (RBC) [Mass/Vol] 33.9 g/dL Normal 32-36 [facility] Comment on above: Performed By: #### Casey LUGO, 28222-2, CMP, 86572-0, 13230-5 #### [facility] ([id number]) [address] [place] [address] 83388 MCV (RBC) [Entitic vol] 94 fL Normal 80-100 [facility] Comment on above: Performed By: #### Casey LUGO, 85407-8, CMP, 81938-3, 76457-7 #### [facility] ([id number]) [address] [place] [address] 59231 Monocytes (Bld) [#/Vol] 1.1 10*3/uL High 0-0.9 [facility] Comment on above: Performed By: #### Casey LUGO, 77909-3, CMP, 26137-7, 68289-1 #### [facility] ([id number]) [address] [place] [address] 47625 Monocytes/100 WBC (Bld) 8.6 % Normal [facility] Comment on above: Performed By: #### Casey LUGO, 38314-8, CMP, 61009-2, 60593-6 #### [facility] ([id number]) [address] [place] [address] 60635 Neutrophils/100 WBC (Bld) 75.8 % Normal [facility] Comment on above: Performed By: #### Casey BCA, 12431-8, CMP, 91477-9, 92461-8 #### [facility] ([id number]) [address] [place] [address] 47113 Platelet mean volume (Bld) [Entitic vol] 9.3 fL Normal 7-12 [facility] Comment on above: Performed By: #### Casey LUGO, 91687-4, CMP, 54991-1, 18491-8 #### [facility] ([id number]) [address] [place] [address] 25552 Platelets (Bld) [#/Vol] 254 10*3/uL Normal 150-450 [facility] Comment on above: Performed By: #### C BCA, 11654-3, CMP, 70230-1, 09093-7 #### [facility] ([id number]) [address] [place] [address] 67717 RBC COUNT 5.29 X10E12/L High 3.80-5.20 [facility] Comment on above: Performed By: #### Casey BCA, 12230-1, CMP, 77669-6, 95175-0 #### [facility] ([id number]) [address] [place] [address] 22014 WBC (Bld) [#/Vol] 13.2 10*3/uL High 4.0-11.0 [facility] Comment on above: Performed By: #### C BCA, 92190-9, CMP, 30446-2, 70451-2 #### [facility] ([id number]) [address] [place] [address] 95810 COMPREHENSIVE METABOLIC PANE Blayne 01-16-2024 Albumin [Mass/Vol] 3.5 g/dL Normal 3.2-5.3 [facility] Comment on above: Performed By: #### Casey BCA, 10844-1, CMP, 96846-8, 52428-6 #### [facility] ([id number]) [address] [place] [address] 48373 ALP [Catalytic activity/Vol] 106 U/L Normal 39-130 [facility] Comment on above: Performed By: #### Casey BCA, 28546-5, CMP, 67456-1, 97287-5 #### [facility] ([id number]) [address] [place] [address] 50219 ALT [Catalytic activity/Vol] 15 U/L Normal 0-31 [facility] Comment on above: Performed By: #### C BCA, 69820-0, CMP, 00959-9, 38723-9 #### [facility] ([id number]) [address] [place] [address] 01880 Anion gap [Moles/Vol] 10 mmol/L Normal 5-15 [facility] Comment on above: Performed By: #### C BCA, 73078-8, CMP, 74715-9, 81747-1 #### [facility] ([id number]) [address] [place] [address] 53041 AST [Catalytic activity/Vol] 13 U/L Normal 0-41 [facility] Comment on above: Performed By: #### Casey BCA, 77021-5, CMP, 50935-0, 55528-7 #### [facility] ([id number]) [address] [place] [address] 56861 Bilirubin [Mass/Vol] 0.7 mg/dL Normal 0.3-1.2 [facility] Comment on above: Performed By: #### C BCA, 13233-0, CMP, 56293-9, 14337-8 #### [facility] ([id number]) [address] [place] [address] 72073 Calcium [Mass/Vol] 8.4 mg/dL Low 8.5-10.5 [facility] Comment on above: Performed By: #### C BCA, 28365-2, CMP, 58308-7, 34064-9 #### [facility] ([id number]) [address] [place] [address] 13750 Chloride [Moles/Vol] 92 mmol/L Low 98-109 [facility] Comment on above: Performed By: #### C BCA, 56162-0, CMP, 96154-3, 52470-9 #### [facility] ([id number]) [address] [place] [address] 66960 CO2 [Moles/Vol] 28 mmol/L Normal 22-32 [facility] Comment on above: Performed By: #### C BRITTNEY, 29397-4, CMP, , 57050-5 #### [facility] ([id number]) [address] [place] [address] 63900 Creatinine [Mass/Vol] 0.77 mg/dL Normal 0.40-1.00 [facility] Comment on above: Result Comment: METH OD TRACEABLE TO IDMS STANDARD Performed By: #### C BRITTNEY, 06372-8, CMP, , 62713-4 #### [facility] ([id number]) [address] [place] [address] 04807 GFR/1.73 sq M.predicted among non-blacks MDRD (S/P/Bld) [Vol rate/Area] 86 mL/min/{1.73_m2} Normal >59 [facility] Comment on above: Result Comment: Reported eGFR is based on the CKD-EPI 2020 equation that does not use a race coefficient. Performed By: #### C BRITTNEY, 84725-9, CMP, , 70600-1 #### [facility] ([id number]) [address] [place] [address] 88166 Glucose [Mass/Vol] 512 mg/dL Critically high 65-99 [facility] Comment on above: Performed By: #### C BRITTNEY, 56754-9, CMP, , 87159-3 #### [facility] ([id number]) [address] [place] [address] 77337 Potassium [Moles/Vol] 2.8 mmol/L Low 3.5-5.0 [facility] Comment on above: Performed By: #### C BRITTNEY, 58848-8, CMP, 73924-7, 54558-7 #### [facility] ([id number]) [address] [place] [address] 38380 Protein [Mass/Vol] 6.8 g/dL Normal 6.0-8.0 [facility] Comment on above: Performed By: #### C BCA, 84666-5, CMP, 40701-0, 48657-3 #### [facility] ([id number]) [address] [place] [address] 11410 Sodium [Moles/Vol] 130 mmol/L Low 134-146 [facility] Comment on above: Performed By: #### C BCA, 32585-1, CMP, 52824-2, 34912-5 #### [facility] ([id number]) [address] [place] [address] 52867 Urea nitrogen [Mass/Vol] 8 mg/dL Normal 5-27 [facility] Comment on above: Performed By: #### C BCA, 22944-7, CMP, 21334-8, 51274-5 #### [facility] ([id number]) [address] [place] [address]RAIN WO CONT[address] BRAIN WO [...] Jones MD on 01/16/2024 2:11 PM Normal [facility] Glucose Glucometer (BldC) [M ass/Vol]on 01-16-2024 Glucose [Mass/Vol] 254 mg/dL High 65-99 [facility] Glucose [Mass/Vol] 265 mg/dL High 65-99 [facility] Glucose [Mass/Vol] 381 mg/dL High 65-99 [facility] Glucose [Mass/Vol] 373 mg/dL High 65-99 [facility] MAGNESIUMon 01-16-2024 Magnesium [Mass/Vol] 2.0 mg/dL Normal 1.8-2.6 [facility] Comment on above: Performed By: #### C BRITTNEY, 11961-5, SYED, 73150-6, 32632-9 #### [facility] ([id number]) [address] [place] [address] 33244 Procalcitonin IA [Mass/Vol]o n 01-16-2024 PROCALCITONIN 0.07 ng/mL High <0.05 [facility] Comment on above: Result Comment: NOTE <0.50 ng/mL - Low risk of severe sepsis and/or septic shock. <2.00 ng/mL - Recommend retesting within 6-24 hours. >2.00 ng/mL - High risk of sepsis and/or septic shock. Performed By: #### C BRITTNEY, 24502-9, SYED, 03830-9, 18333-3 #### [facility] ([id number]) [address] [place] [address] 36676 Troponin I.cardiac High sens itivity method [Mass/Vol]on 01-16-2024 1 HOUR TROP I, HIGH SENSITIVITY 5 ng/L Normal <16 [facility] Comment on above: Performed By: #### 8 9579-7 #### [facility] ([id number]) [address] [place] [address] 49372 TROPONIN I, HIGH SENSITIVITY 5 ng/L Normal <16 [facility] Comment on above: Performed By: #### C BRITTNEY, 20312-4, CMP, 23821-7, 07567-2 #### [facility] ([id number]) [address] [place] [address] 38786 URINALYSISon 01-16-2024 Bilirubin Ql (U) Negative Normal NEG [facility] Comment on above: Performed By: #### C BCA, 08543-0, CMP, 72547-3, 65764-7 #### [facility] ([id number]) [address] [place] [address] 73945 BLOOD/HGB Trace Abnormal NEG [facility] Comment on above: Performed By: #### C BCA, 77782-9, CMP, 49761-2, 61740-9 #### [facility] ([id number]) [address] [place] [address] 06670 Color (U) YELLOW Normal YELLOW [facility] Comment on above: Performed By: #### C BCA, 56852-8, CMP, 93592-0, 77120-0 #### [facility] ([id number]) [address] [place] [address] 31003 Glucose Ql (U) >1000 Abnormal NEG [facility] Comment on above: Performed By: #### C BCA, 12582-7, CMP, 05704-4, 76121-2 #### [facility] ([id number]) [address] [place] [address] 12354 Ketones Ql (U) Negative Normal NEG [facility] Comment on above: Performed By: #### C BCA, 94422-2, CMP, 14593-9, 01012-1 #### [facility] ([id number]) [address] [place] [address] 69908 Leukocyte esterase Test strip Ql (U) Negative Normal NEG [facility] Comment on above: Result Comment: HIGH CONCENTRATIONS OF GLUCOSE MAY DECREASE THE REACTIVITY OF THE DIPSTICK LEUKOCYTE TEST PAD. Performed By: #### C BRITTNEY, 38427-7, CMP, 15825-3, 76253-0 #### [facility] ([id number]) [address] [place] [address] 69403 Nitrite Ql (U) Negative Normal NEG [facility] Comment on above: Performed By: #### Casey BCA, 93798-5, CMP, 96133-4, 48810-6 #### [facility] ([id number]) [address] [place] [address] 48367 pH (U) 6.0 [pH] Normal 5.0-8.5 [facility] Comment on above: Performed By: #### Casey LUGO, 00239-6, CMP, 23448-6, 97492-6 #### [facility] ([id number]) [address] [place] [address] 57613 Protein Ql (U) Negative Normal NEG [facility] Comment on above: Performed By: #### Casey LUGO, 67707-4, CMP, 57252-5, 89175-6 #### [facility] ([id number]) [address] [place] [address] 10057 R.B.CELLS 6 /hpf High 0-5 [facility] Comment on above: Performed By: #### Casey LUGO, 71287-3, CMP, 41181-9, 50603-9 #### [facility] ([id number]) [address] [place] [address] 44562 Specific gravity (U) [Rel density] <1.005 Normal 1.003-1.035 [facility] Comment on above: Performed By: #### Casey BCA, 26000-4, CMP, 63977-2, 86458-6 #### [facility] ([id number]) [address] [place] [address] 53316 SQUAMOUS EPITHELIUM 2 /hpf Normal 0-5 [facility] Comment on above: Performed By: #### C BRITTNEY, 85289-9, CMP, 24400-2, 22186-6 #### [facility] ([id number]) [address] [place] [address] [place] [address] TURBIDITY CLEAR Normal CLEAR [facility] Comment on above: Performed By: #### C BRITTNEY, 26262-8, CMP, 01399-6, 41675-4 #### [facility] ([id number]) [address] [place] [address] [place] [address] Urobilinogen Qn (U) 0.2 {Beau'U}/dL Normal <1.1 [facility] Comment on above: Performed By: #### C BRITTNEY, 20824-2, CMP, 62816-1, 25120-2 #### [facility] ([id number]) [address] [place] [address] [place] [address] W.B.CELLS 2 /hpf Normal 0-5 [facility] Comment on above: Performed By: #### C BRITTNEY, 59567-9, [facility], 89347-9, 47001-3 #### [facility] ([id number]) [address] [place] [address] 51843 URN MACROSCOPIC NURon 2023 BILIRUBIN ANISHA Negative Normal NEG [facility] Comment on above: Performed By: #### N UM #### [facility] ([id number]) [address] [place] [address] [place] [address] BLOOD/HGB ANISHA Trace Abnormal NEG [facility] Comment on above: Performed By: #### N UM #### [facility] ([id number]) [address] [place] [address] [place] [address] GLUCOSE ANISHA >=1000 Abnormal NEG [facility] Comment on above: Performed By: #### N UM #### [facility] ([id number]) [address] [place] [address] 76247 KETONES ANISHA Negative Normal NEG [facility] Comment on above: Performed By: #### N UM #### [facility] ([id number]) [address] [place] [address] 66629 LEUKOCYTE ESTERASE ANISHA Trace Abnormal NEG [facility] Comment on above: Performed By: #### N UM #### [facility] ([id number]) [address] [place] [address] 56821 NITRITE ANISHA Negative Normal NEG [facility] Comment on above: Performed By: #### N UM #### [facility] ([id number]) [address] [place] [address] 74181 PH ANISHA 5.5 Normal 5.0-8.5 [facility] Comment on above: Performed By: #### N UM #### [facility] ([id number]) [address] [place] [address] 44195 PROTEIN ANISHA Negative Normal NEG [facility] Comment on above: Performed By: #### N UM #### [facility] ([id number]) [address] [place] [address] 81320 SPECIFIC GRAVITY ANISHA <=1.005 Normal 1.003-1.035 [facility] Comment on above: Performed By: #### N UM #### [facility] ([id number]) [address] [place] [address] 08895 UROBILINOGEN ANISHA 0.2 eu/dL Normal <1.1 [facility] Comment on above: Performed By: #### N UM #### [facility] ([id number]) [address] [place] [address] 63356 09-05-2023 36 Can order for lasix 20mg daily. Thanks [facility] 09-04-2023 36 Doesn't look like we have noted her to be on lasix since 01/2023. How often was she taking it? Was her PCP prescribing it? Normal [facility] Office Visiton 01-08-2023 Follow-up visit [id number] BarbyHayleyDenae E 1960 F Date Provider Department Center 01/08/2023 [id number] ACE DAWSON [facility] Family History Problem Relation Age of Onset Stroke Father Family Status - Relation Status Age at Father Level of Service:00793 MT OFFICE/OUTPATIENT ESTABLISHED MOD MDM 30-39 MIN Normal [facility] XR DEXA BONE DENSITYon 10-02 XR [...] - Moderate Fracture Risk Electronically authenticated by: RBOERT HART Date: 2022-10-02 12:08 Normal [facility] LIPID PROFILEon 08-09-2022 CHOL-HDL RATIO NORM SEE BELOW Normal [facility] Comment on above: Result Comment: 3.3 - 4.4 LOW RISK 4.4 - 7.1 AVERAGE RISK 7.1 - 11.0 MODERATE RISK >11.0 HIGH RISK Performed By: #### M ALBR #### [facility] [address] [place], [place] [address] Dr. Maru Disla Cholesterol [Mass/Vol] 110 mg/dL Normal <=200 [facility] Comment on above: Performed By: #### M ALBR #### [facility] [address] [place], [place] [address] Dr. Maru Disla Cholesterol in HDL [Mass/Vol] 38 mg/dL Critically low 40-60 [facility] Comment on above: Performed By: #### M ALBR #### [facility] [address] [place] [address] [address] Maru Disla Cholesterol in LDL [Mass/Vol] 52.4 mg/dL Normal [facility] Comment on above: Performed By: #### M ALBR #### [facility] [address] [place] [address] [address] aMru Disla Cholesterol.total/C holesterol in HDL [Mass ratio] 2.9 {ratio} Normal [facility] Comment on above: Performed By: #### M ALBR #### [facility] [address] [place] [address] Dr. Maru Disla HDL NORMAL > or = 60 mg/dl - LO W CARDIOVASCULAR RISK <40 mg/dl - HIGH CARDIOVASCULAR RISK Normal [facility] Comment on above: Performed By: #### M ALBR #### [facility] [address] [place] [address] [address] Maru Disla LDL CALC NORMAL SEE BELOW Normal [facility] Comment on above: Result Comment: <100 mg/dl OPTIMAL 100 - 129 mg/dl NEAR OR ABOVE OPTIMAL 130 - 159 mg/dl BORDERLINE HIGH 160 - 189 mg/dl HIGH >190 mg/dl VERY HIGH Performed By: #### M ALBR #### [facility] [address] [place] [address] Dr. Maru Disla Triglyceride [Mass/Vol] 98 mg/dL Normal <=150 [facility] Comment on above: Performed By: #### M ALBR #### [facility] [address] [place] [address] [address] Maru Disla VLDL CALC 19.6 mg/dL Normal [facility] Comment on above: Performed By: #### M ALBR #### [facility] [address] [place] [address] Dr. Maru Disla MICROALBUMIN, RAND URon 03-0 mALB <1.3 Normal <=30.0 [facility] Comment on above: Performed By: #### M ALBR #### [facility] [address] [place] [address] Dr. Maru Disla PROF 14(COMP METB)on 023 Albumin [Mass/Vol] 3.6 g/dL Normal 3.4-5.0 [facility] Comment on above: Performed By: #### M ALBR #### [facility] [address] [place] [address] Dr. Maru Disla Albumin/Globulin [Mass ratio] 0.9 {ratio} Normal [facility] Comment on above: Performed By: #### M ALBR #### [facility] [address] [place] [address] Dr. Maru Disla ALP [Catalytic activity/Vol] 92 U/L Normal 46-116 [facility] Comment on above: Performed By: #### M ALBR #### [facility] [address] [place] [address] Dr. Maru Disla ALT [Catalytic activity/Vol] 22 U/L Normal 14-59 [facility] Comment on above: Performed By: #### M ALBR #### [facility] [address] [place] [address] Dr. Maru Disla Anion gap [Moles/Vol] 13.2 mmol/L Normal [facility] Comment on above: Performed By: #### M ALBR #### [facility] [address] [place] [address] Dr. Maru Disla AST [Catalytic activity/Vol] 17 U/L Normal 15-37 [facility] Comment on above: Performed By: #### M ALBR #### [facility] [address] [place] [address] Dr. Maru Disla Bilirubin [Mass/Vol] 0.4 mg/dL Normal 0.2-1.0 [facility] Comment on above: Performed By: #### M ALBR #### [facility] [address] [place] [address] Dr. Maru Disla Calcium [Mass/Vol] 9.3 mg/dL Normal 8.5-10.1 [facility] Comment on above: Performed By: #### M ALBR #### [facility] [address] [place] [address] [address] Maru Disla Chloride [Moles/Vol] 102 mmol/L Normal 98-107 [facility] Comment on above: Performed By: #### M ALBR #### [facility] [address] [place] [address] [address] Maru Disla CO2 [Moles/Vol] 29.7 mmol/L Normal 21.0-32.0 [facility] Comment on above: Performed By: #### M ALBR #### [facility] [address] [place] [address] [address] Maru Disla Creatinine [Mass/Vol] 0.74 mg/dL Normal 0.55-1.02 [facility] Comment on above: Performed By: #### M ALBR #### [facility] [address] [place] [address] Dr. Maru Disla EGFR-AF BURUNDIAN >60 Normal >=60 [facility] Comment on above: Performed By: #### M ALBR #### [facility] [address] [place] [address] [address] Maru Disla EGFR-NON AF BURUNDIAN >60 Normal >=60 [facility] Comment on above: Performed By: #### M ALBR #### [facility] [address] [place] [address] Dr. Maru Disla Globulin (S) [Mass/Vol] 3.9 g/dL Normal [facility] Comment on above: Performed By: #### M ALBR #### [facility] [address] [place] [address] [address] Maru Disla Glucose [Mass/Vol] 271 mg/dL Critically high 74-106 [facility] Comment on above: Performed By: #### M ALBR #### [facility] [address] [place] [address] [address] Maru Disla Potassium [Moles/Vol] 3.9 mmol/L Normal 3.5-5.1 [facility] Comment on above: Performed By: #### M ALBR #### [facility] [address] [place] [address] Dr. Maru Disla Protein [Mass/Vol] 7.5 g/dL Normal 6.4-8.2 [facility] Comment on above: Performed By: #### M ALBR #### [facility] [address] [place] [address] [address] Maru Disla Sodium [Moles/Vol] 141 mmol/L Normal 136-145 [facility] Comment on above: Performed By: #### M ALBR #### [facility] [address] [place] [address] [address] Maru Disla Urea nitrogen [Mass/Vol] 8.0 mg/dL Normal 7.0-18.0 [facility] Comment on above: Performed By: #### M ALBR #### [facility] [address] [place] [address] [address] Maru Disla Urea nitrogen/Creatinine [Mass ratio] 10.8 mg/mg Normal [facility] Comment on above: Performed By: #### M ALBR #### [facility] [address] [place] [address] [address] Maru Disla MG MAMM SCREEN 3D BALDO CADon 06-21-2022 MG MAMM SCREEN 3D BALDO CAD Patient: DENAE DIOR Exam Date: 06/21/2022 : 1960 Gender:F Ordering : [employer] Admission #: [id number] Family : Order #: [id number] CLICK HERE TO VIEW EXAM RADIOLOGY REPORT [...] breast cancer at age 64. LOCATION: [facility] BREAST COMPOSITION: Scattered areas fibroglandular [...] MD on 06/21/2022 at 10:10 Normal [facility] HEMOGLOBINon 06-20-2022 Hemoglobin (Bld) [Mass/Vol] 15.1 g/dL Normal 12.0-16.0 [facility] Comment on above: Performed By: #### B MP #### [facility] [address] [place] [address] Dr. Maru Disla BNPon 04-09-2022 Natriuretic peptide B (Bld) [Mass/Vol] 824.0 pg/mL Normal <=900.0 [facility] Comment on above: Performed By: #### M ALBR #### [facility] [address] [place] [address] Dr. Maru Disla CARDIAC BREANNE ADMITon 022 CK [Catalytic activity/Vol] 364 U/L Critically high 26-192 [facility] Comment on above: Performed By: #### P OCGLUC #### [facility] [address] [place] [address] Dr. Maru Disla CK.MB [Mass/Vol] 5.60 ng/mL Critically high <=3.60 [facility] Comment on above: Performed By: #### P OCGLUC #### [facility] [address] [place] [address] Dr. Maru Disla HSTROP 454.7 pg/mL Critically high 4.0-51.3 [facility] Comment on above: Result Comment: CUT- OFF POINTS HAVE BEEN ESTABLISHED BASED ON THE FOURTH UNIVERSAL DEFINITIONS OF MYOCARDIAL INFARCTION. THE UPPER REFERENCE LIMIT (URL) OF TROPONIN, DEFINED THE 99TH PERCENTILE OF cTnI DISTRIBUTION IN A REFERENCE POPULATION, HAS BEEN CONFIRMED THE DECISION THRESHOLD FOR OR DIAGNOSIS. Performed By: #### P OCGLUC #### [facility] [address] [place] [address] Dr. Maru Disla REDD 137 ng/mL Critically high 9-82 [facility] Comment on above: Performed By: #### P OCGLUC #### [facility] [address] [place] [address] [address] Maru Disla CBC AUTO DIFFon 04-09-2022 BASO # 0.0 103/ul Normal 0.0-0.1 [facility] Comment on above: Performed By: #### A BG #### [facility] [address] [place] [address] Dr. Maru Disla Basophils/100 WBC (Bld) 0.2 % Normal 0.2-2.0 [facility] Comment on above: Performed By: #### A BG #### [facility] [address] [place] [address] Dr. Maru Disla EO # 0.0 103/ul Normal 0.0-0.7 [facility] Comment on above: Performed By: #### A BG #### [facility] [address] [place] [address] Dr. Maru Disla Eosinophils/100 WBC (Bld) 0.0 % Critically low 0.9-7.0 [facility] Comment on above: Performed By: #### A BG #### [facility] [address] [place] [address] Dr. Maru Disla Erythrocyte distribution width (RBC) [Ratio] 13.4 % Normal 11.0-15.0 [facility] Comment on above: Performed By: #### A BG #### [facility] [address] [place] [address] Dr. Maru Disla Hematocrit (Bld) [Volume fraction] 48.3 % Critically high 36.0-48.0 [facility] Comment on above: Performed By: #### A BG #### [facility] [address] [place] [address] Dr. Maru Disla Hemoglobin (Bld) [Mass/Vol] 15.3 g/dL Normal 12.0-16.0 [facility] Comment on above: Performed By: #### A BG #### [facility] [address] [place] [address] Dr. Maru Disla IG # 0.11 10e3/ul Critically high 0.00-0.03 [facility] Comment on above: Performed By: #### A BG #### [facility] [address] [place] [address] Dr. Maru Disla IG % 0.6 % Critically high 0.0-0.5 [facility] Comment on above: Performed By: #### A BG #### [facility] [address] [place] [address] Dr. Maru Disla LYMPH # 1.1 103/ul Critically low 1.2-3.8 [facility] Comment on above: Performed By: #### A BG #### [facility] [address] [place] [address] Dr. Maru Disla Lymphocytes/100 WBC (Bld) 6.1 % Critically low 20.5-60.0 [facility] Comment on above: Performed By: #### A BG #### [facility] [address] [place] [address] Dr. Maru Disla MANUAL DIFF REQ NO Normal [facility] Comment on above: Performed By: #### A BG #### [facility] [address] [place] [address] Dr. Maru Disla MCH (RBC) [Entitic mass] 29.8 pg Normal 26.7-34.0 [facility] Comment on above: Performed By: #### A BG #### [facility] [address] [place] [address] Dr. Maru Disla MCHC (RBC) [Mass/Vol] 31.7 g/dL Normal 29.9-35.2 [facility] Comment on above: Performed By: #### A BG #### [facility] [address] [place] [address] Dr. Maru Disla MCV (RBC) [Entitic vol] 94.2 fL Normal 81.0-99.0 [facility] Comment on above: Performed By: #### A BG #### [facility] [address] [place] [address] Dr. Maru Disla MONO # 0.7 103/ul Normal 0.3-0.8 [facility] Comment on above: Performed By: #### A BG #### [facility] [address] [address] [address] Maru Disla Monocytes/100 WBC (Bld) 3.9 % Normal 1.7-12.0 [facility] Comment on above: Performed By: #### A BG #### [facility] [address] [address] [address] Maru Disla NEUT # 15.3 103/ul Critically high 1.4-6.5 [facility] Comment on above: Performed By: #### A BG #### [facility] [address] [place] [address] Dr. Maru Disla Neutrophils/100 WBC (Bld) 89.2 % Critically high 43.0-75.0 [facility] Comment on above: Performed By: #### A BG #### [facility] [address] [place] [address] Dr. Maru Disla Platelet mean volume (Bld) [Entitic vol] 10.4 fL Normal 9.5-13.5 [facility] Comment on above: Performed By: #### A BG #### [facility] [address] [place] [address] Dr. Maru Disla PLT 311 103/ul Normal 150-450 [facility] Comment on above: Performed By: #### A BG #### [facility] [address] [place] [address] Dr. Maru Disla RBC 5.13 106/ul Normal 4.20-5.40 [facility] Comment on above: Performed By: #### A BG #### [facility] [address] [place] [address] Dr. Maru Disla WBC 17.2 103/ul Critically high 4.0-11.0 [facility] Comment on above: Performed By: #### A BG #### [facility] [address] [place] [address] Dr. Maru Disla ECHOCARDIO M/2D COMPLETEon 1 06-09-2021 ECHOCARDIO M/2D COMPLETE Patient: DENAE DIORRenae Exam Date: 04/09/2022 : 1960 Gender:F Ordering : DR TERI BLOCK . Admission #: [id number] Family : Order #: [id number] CLICK HERE TO VIEW EXAM ECHOCARDIOGRAM REPORT [...] Subramanian M.D. on 04/10/2022 at 15:44 Normal [facility] POINT OF CARE GLUCOSEon 11-0 Glucose [Mass/Vol] 171 mg/dL Critically high 74-106 [facility] Comment on above: Performed By: #### P OCGLUC #### [facility] [address] [address] [address] Maru Disla Glucose [Mass/Vol] 97 mg/dL Normal 74-106 [facility] Comment on above: Performed By: #### M ALBR #### [facility] [address] [address] [address] Maru Disla PROF CHEM 8 (BAS METB)on Anion gap [Moles/Vol] 9.1 mmol/L Normal [facility] Comment on above: Performed By: #### P OCGLUC #### [facility] [address] [address] [address] Maru Disla Calcium [Mass/Vol] 8.7 mg/dL Normal 8.5-10.1 [facility] Comment on above: Performed By: #### P OCGLUC #### [facility] [address] [address] [address] Maru Disla Chloride [Moles/Vol] 104 mmol/L Normal 98-107 [facility] Comment on above: Performed By: #### P OCGLUC #### [facility] [address] [address] [address] Maru Disla CO2 [Moles/Vol] 33.2 mmol/L Critically high 21.0-32.0 [facility] Comment on above: Performed By: #### P OCGLUC #### [facility] [address] [address] [address] Maru Disla Creatinine [Mass/Vol] 0.87 mg/dL Normal 0.55-1.02 [facility] Comment on above: Performed By: #### P OCGLUC #### [facility] [address] [address] [address] Maru Disla EGFR-AF BURUNDIAN >60 Normal >=60 [facility] Comment on above: Performed By: #### P OCGLUC #### [facility] [address] [address] [address] Maru Disla EGFR-NON AF BURUNDIAN >60 Normal >=60 [facility] Comment on above: Performed By: #### P OCGLUC #### [facility] [address] [address] [address] Maru Disla Glucose [Mass/Vol] 115 mg/dL Critically high 74-106 [facility] Comment on above: Performed By: #### P OCGLUC #### [facility] [address] [address] [address] Maru Disla Potassium [Moles/Vol] 4.3 mmol/L Normal 3.5-5.1 [facility] Comment on above: Performed By: #### P OCGLUC #### [facility] [address] [address] [address] Maru Disla Sodium [Moles/Vol] 142 mmol/L Normal 136-145 [facility] Comment on above: Performed By: #### P OCGLUC #### [facility] [address] [address] [address] Maru Disla Urea nitrogen [Mass/Vol] 36.0 mg/dL Critically high 7.0-18.0 [facility] Comment on above: Performed By: #### P OCGLUC #### [facility] [address] [place] [address] Dr. Maru Disla Urea nitrogen/Creatinine [Mass ratio] 41.4 mg/mg Normal [facility] Comment on above: Performed By: #### P OCGLUC #### [facility] [address] [place] [address] Dr. Maru Disla CARDIAC BREANNE 3-6on 2 CK [Catalytic activity/Vol] 381 U/L Critically high 26-192 [facility] Comment on above: Performed By: #### C MREP #### [facility] [address] [place] [address] Dr. Maru Disla CK.MB [Mass/Vol] 7.91 ng/mL Critically high <=3.60 [facility] Comment on above: Performed By: #### C MREP #### [facility] [address] [place] [address] Dr. Maru Disla HSTROP 766.1 pg/mL Critically high 4.0-51.3 [facility] Comment on above: Result Comment: CUT- OFF POINTS HAVE BEEN ESTABLISHED BASED ON THE FOURTH UNIVERSAL DEFINITIONS OF MYOCARDIAL INFARCTION. THE UPPER REFERENCE LIMIT (URL) OF TROPONIN, DEFINED THE 99TH PERCENTILE OF cTnI DISTRIBUTION IN A REFERENCE POPULATION, HAS BEEN CONFIRMED THE DECISION THRESHOLD FOR OR DIAGNOSIS. Performed By: #### C MREP #### [facility] [address] [place] [address] Dr. Maru Disla CK [Catalytic activity/Vol] 356 U/L Critically high 26-192 [facility] Comment on above: Performed By: #### C MREP #### [facility] [address] [place] [address] Dr. Maru Disla CK.MB [Mass/Vol] 8.66 ng/mL Critically high <=3.60 [facility] Comment on above: Performed By: #### C MREP #### [facility] [address] [address] [address] Maru Disla HSTROP 610.6 pg/mL Critically high 4.0-51.3 [facility] Comment on above: Result Comment: CUT- OFF POINTS HAVE BEEN ESTABLISHED BASED ON THE FOURTH UNIVERSAL DEFINITIONS OF MYOCARDIAL INFARCTION. THE UPPER REFERENCE LIMIT (URL) OF TROPONIN, DEFINED THE 99TH PERCENTILE OF cTnI DISTRIBUTION IN A REFERENCE POPULATION, HAS BEEN CONFIRMED THE DECISION THRESHOLD FOR OR DIAGNOSIS. Performed By: #### C MREP #### [facility] [address] [address] [address] Maru Disla CARDIAC BREANNE ADMITon 022 CK [Catalytic activity/Vol] 381 U/L Critically high 26-192 [facility] Comment on above: Performed By: #### C MADM #### [facility] [address] [address] [address] Maru Disla CK.MB [Mass/Vol] 8.07 ng/mL Critically high <=3.60 [facility] Comment on above: Performed By: #### C MADM #### [facility] [address] [address] [address] Maru Disla HSTROP 220.2 pg/mL Critically high 4.0-51.3 [facility] Comment on above: Result Comment: CUT- OFF POINTS HAVE BEEN ESTABLISHED BASED ON THE FOURTH UNIVERSAL DEFINITIONS OF MYOCARDIAL INFARCTION. THE UPPER REFERENCE LIMIT (URL) OF TROPONIN, DEFINED THE 99TH PERCENTILE OF cTnI DISTRIBUTION IN A REFERENCE POPULATION, HAS BEEN CONFIRMED THE DECISION THRESHOLD FOR OR DIAGNOSIS. Performed By: #### C MADM #### [facility] [address] [address] [address] Maru Disla REDD 269 ng/mL Critically high 9-82 [facility] Comment on above: Performed By: #### C MADM #### [facility] [address] [address] [address] Maru Disla CBC AUTO DIFFon 04-08-2022 BASO # 0.0 103/ul Normal 0.0-0.1 [facility] Comment on above: Performed By: #### M ALBR #### [facility] [address] [address] [address] Maru Disla Basophils/100 WBC (Bld) 0.2 % Normal 0.2-2.0 [facility] Comment on above: Performed By: #### M ALBR #### [facility] [address] [place] [address] Dr. Maru Disla EO # 0.0 103/ul Normal 0.0-0.7 [facility] Comment on above: Performed By: #### M ALBR #### [facility] [address] [place] [address] Dr. Maru Disla Eosinophils/100 WBC (Bld) 0.0 % Critically low 0.9-7.0 [facility] Comment on above: Performed By: #### M ALBR #### [facility] [address] [place] [address] Dr. Maru Disla Erythrocyte distribution width (RBC) [Ratio] 13.4 % Normal 11.0-15.0 [facility] Comment on above: Performed By: #### M ALBR #### [facility] [address] [place] [address] Dr. Maru Disla Hematocrit (Bld) [Volume fraction] 52.7 % Critically high 36.0-48.0 [facility] Comment on above: Performed By: #### M ALBR #### [facility] [address] [place] [address] Dr. Maru Disla Hemoglobin (Bld) [Mass/Vol] 16.8 g/dL Critically high 12.0-16.0 [facility] Comment on above: Performed By: #### M ALBR #### [facility] [address] [place] [address] Dr. Maru Disla IG # 0.13 10e3/ul Critically high 0.00-0.03 [facility] Comment on above: Performed By: #### M ALBR #### [facility] [address] [place] [address] Dr. Maru Disla IG % 0.6 % Critically high 0.0-0.5 [facility] Comment on above: Performed By: #### M ALBR #### [facility] [address] [address] [address] Maru Disla LYMPH # 0.8 103/ul Critically low 1.2-3.8 [facility] Comment on above: Performed By: #### M ALBR #### [facility] [address] [address] [address] Maru Disla Lymphocytes/100 WBC (Bld) 3.4 % Critically low 20.5-60.0 [facility] Comment on above: Performed By: #### M ALBR #### [facility] [address] [place] [address] Dr. Maru Disla MANUAL DIFF REQ NO Normal [facility] Comment on above: Performed By: #### M ALBR #### [facility] [address] [place] [address] Dr. Maru Disla MCH (RBC) [Entitic mass] 29.4 pg Normal 26.7-34.0 [facility] Comment on above: Performed By: #### M ALBR #### [facility] [address] [place] [address] Dr. Maru Disla MCHC (RBC) [Mass/Vol] 31.9 g/dL Normal 29.9-35.2 [facility] Comment on above: Performed By: #### M ALBR #### [facility] [address] [place] [address] Dr. Maru Disal MCV (RBC) [Entitic vol] 92.1 fL Normal 81.0-99.0 [facility] Comment on above: Performed By: #### M ALBR #### [facility] [address] [place] [address] Dr. Maru Disla MONO # 0.8 103/ul Normal 0.3-0.8 [facility] Comment on above: Performed By: #### M ALBR #### [facility] [address] [address] [address] Maru Disla Monocytes/100 WBC (Bld) 3.4 % Normal 1.7-12.0 [facility] Comment on above: Performed By: #### M ALBR #### [facility] [address] [address] [address] Maru Disla NEUT # 21.8 103/ul Critically high 1.4-6.5 [facility] Comment on above: Performed By: #### M ALBR #### [facility] [address] [address] [address] Maru Disla Neutrophils/100 WBC (Bld) 92.4 % Critically high 43.0-75.0 [facility] Comment on above: Performed By: #### M ALBR #### [facility] [address] [address] [address] Maru Disla Platelet mean volume (Bld) [Entitic vol] 10.4 fL Normal 9.5-13.5 [facility] Comment on above: Performed By: #### M ALBR #### [facility] [address] [address] [address] Maru Disla PLT 335 103/ul Normal 150-450 [facility] Comment on above: Performed By: #### M ALBR #### [facility] [address] [address] [address] Maru Disla RBC 5.72 106/ul Critically high 4.20-5.40 [facility] Comment on above: Performed By: #### M ALBR #### [facility] [address] [address] [address] Maru Disla WBC 23.5 103/ul Critically high 4.0-11.0 [facility] Comment on above: Performed By: #### M ALBR #### [facility] [address] [address] [address] Maru Disla POINT OF CARE GLUCOSEon Glucose [Mass/Vol] 275 mg/dL Critically high 74-106 [facility] Comment on above: Performed By: #### P OCGLUC #### [facility] [address] [address] [address] Maru Disla Glucose [Mass/Vol] 161 mg/dL Critically high 74-106 [facility] Comment on above: Performed By: #### B MP #### [facility] [address] [place] [address] Dr. Maru Disla Glucose [Mass/Vol] 140 mg/dL Critically high -106 [facility] Comment on above: Performed By: #### P OCGLUC #### [facility] [address] [address] [address] Maru Disla Glucose [Mass/Vol] 219 mg/dL Critically high -106 [facility] Comment on above: Performed By: #### P OCGLUC #### [facility] [address] [place] [address] Dr. Maru Disla PROF CHEM 8 (BAS METB)on Anion gap [Moles/Vol] 14.0 mmol/L Normal [facility] Comment on above: Performed By: #### M ALBR #### [facility] [address] [place] [address] Dr. Maru Disla Calcium [Mass/Vol] 9.3 mg/dL Normal 8.5-10.1 [facility] Comment on above: Performed By: #### M ALBR #### [facility] [address] [place] [address] Dr. Maru Disla Chloride [Moles/Vol] 98 mmol/L Normal 98-107 [facility] Comment on above: Performed By: #### M ALBR #### [facility] [address] [place] [address] Dr. Maru Disla CO2 [Moles/Vol] 30.5 mmol/L Normal 21.0-32.0 [facility] Comment on above: Performed By: #### M ALBR #### [facility] [address] [place] [address] Dr. Maru Disla Creatinine [Mass/Vol] 1.09 mg/dL Critically high 0.55-1.02 [facility] Comment on above: Performed By: #### M ALBR #### [facility] [address] [place] [address] Dr. Maru Disla EGFR-AF BURUNDIAN >60 Normal >=60 [facility] Comment on above: Performed By: #### M ALBR #### [facility] [address] [address] [address] Maru Disla EGFR-NON AF BURUNDIAN 51 mL/min/1.73m2 Critically low >=60 [facility] Comment on above: Performed By: #### M ALBR #### [facility] [address] [address] [address] Maru Disla Glucose [Mass/Vol] 242 mg/dL Critically high 74-106 [facility] Comment on above: Performed By: #### M ALBR #### [facility] [address] [address] [address] Maru Disla Potassium [Moles/Vol] 3.5 mmol/L Normal 3.5-5.1 [facility] Comment on above: Performed By: #### M ALBR #### [facility] [address] [address] [address] Maru Disla Sodium [Moles/Vol] 139 mmol/L Normal 136-145 [facility] Comment on above: Performed By: #### M ALBR #### [facility] [address] [address] [address] Maru Disla Urea nitrogen [Mass/Vol] 32.0 mg/dL Critically high 7.0-18.0 [facility] Comment on above: Performed By: #### M ALBR #### [facility] [address] [address] [address] Maru Disla Urea nitrogen/Creatinine [Mass ratio] 29.4 mg/mg Normal [facility] Comment on above: Performed By: #### M ALBR #### [facility] [address] [address] [address] Maru Disla CBC AUTO DIFFon 04-07-2022 BASO # 0.0 103/ul Normal 0.0-0.1 [facility] Comment on above: Performed By: #### P OCGLUC #### [facility] [address] [address] [address] Maru Disla Basophils/100 WBC (Bld) 0.2 % Normal 0.2-2.0 [facility] Comment on above: Performed By: #### P OCGLUC #### [facility] [address] [place] [address] Dr. Maru Disla EO # 0.0 103/ul Normal 0.0-0.7 [facility] Comment on above: Performed By: #### P OCGLUC #### [facility] [address] [place] [address] Dr. Maru Disla Eosinophils/100 WBC (Bld) 0.0 % Critically low 0.9-7.0 [facility] Comment on above: Performed By: #### P OCGLUC #### [facility] [address] [place] [address] Dr. Maru Disla Erythrocyte distribution width (RBC) [Ratio] 13.6 % Normal 11.0-15.0 [facility] Comment on above: Performed By: #### P OCGLUC #### [facility] [address] [place] [address] Dr. Maru Disla Hematocrit (Bld) [Volume fraction] 48.1 % Critically high 36.0-48.0 [facility] Comment on above: Performed By: #### P OCGLUC #### [facility] [address] [place] [address] Dr. Maru Disla Hemoglobin (Bld) [Mass/Vol] 14.7 g/dL Normal 12.0-16.0 [facility] Comment on above: Performed By: #### P OCGLUC #### [facility] [address] [place] [address] Dr. Maru Disla IG # 0.16 10e3/ul Critically high 0.00-0.03 [facility] Comment on above: Performed By: #### P OCGLUC #### [facility] [address] [place] [address] Dr. Maru Disla IG % 0.6 % Critically high 0.0-0.5 [facility] Comment on above: Performed By: #### P OCGLUC #### [facility] [address] [place] [address] Dr. Maru Disla LYMPH # 1.0 103/ul Critically low 1.2-3.8 [facility] Comment on above: Performed By: #### P OCGLUC #### [facility] [address] [place] [address] Dr. Maru Disla Lymphocytes/100 WBC (Bld) 4.1 % Critically low 20.5-60.0 [facility] Comment on above: Performed By: #### P OCGLUC #### [facility] [address] [place] [address] Dr. Maru Disla MANUAL DIFF REQ NO Normal [facility] Comment on above: Performed By: #### P OCGLUC #### [facility] [address] [place] [address] Dr. Maru Disla MCH (RBC) [Entitic mass] 29.4 pg Normal 26.7-34.0 [facility] Comment on above: Performed By: #### P OCGLUC #### [facility] [address] [place] [address] Dr. Maru Disla MCHC (RBC) [Mass/Vol] 30.6 g/dL Normal 29.9-35.2 [facility] Comment on above: Performed By: #### P OCGLUC #### [facility] [address] [place] [address] Dr. Maru Disla MCV (RBC) [Entitic vol] 96.2 fL Normal 81.0-99.0 [facility] Comment on above: Performed By: #### P OCGLUC #### [facility] [address] [place] [address] Dr. Maru Disla MONO # 0.8 103/ul Normal 0.3-0.8 [facility] Comment on above: Performed By: #### P OCGLUC #### [facility] [address] [place] [address] Dr. Maru Disla Monocytes/100 WBC (Bld) 3.2 % Normal 1.7-12.0 [facility] Comment on above: Performed By: #### P OCGLUC #### [facility] [address] [place] [address] Dr. Maru Disla NEUT # 23.1 103/ul Critically high 1.4-6.5 [facility] Comment on above: Performed By: #### P OCGLUC #### [facility] [address] [place] [address] Dr. Maru Disla Neutrophils/100 WBC (Bld) 91.9 % Critically high 43.0-75.0 [facility] Comment on above: Performed By: #### P OCGLUC #### [facility] [address] [address] [address] Maru Disla Platelet mean volume (Bld) [Entitic vol] 10.5 fL Normal 9.5-13.5 [facility] Comment on above: Performed By: #### P OCGLUC #### [facility] [address] [place] [address] Dr. Maru Disla PLT 300 103/ul Normal 150-450 [facility] Comment on above: Performed By: #### P OCGLUC #### [facility] [address] [place] [address] Dr. Maru Disla RBC 5.00 106/ul Normal 4.20-5.40 [facility] Comment on above: Performed By: #### P OCGLUC #### [facility] [address] [place] [address] Dr. Maru Disla WBC 25.1 103/ul Critically high 4.0-11.0 [facility] Comment on above: Performed By: #### P OCGLUC #### [facility] [address] [place] [address] Dr. Maru Disla POINT OF CARE GLUCOSEon 11-0 Glucose [Mass/Vol] 247 mg/dL Critically high 74-106 [facility] Comment on above: Performed By: #### B MP #### [facility] [address] [place] [address] Dr. Maru Disla Glucose [Mass/Vol] 182 mg/dL Critically high 74-106 [facility] Comment on above: Performed By: #### A BG #### [facility] [address] [place] [address] Dr. Maru Disla Glucose [Mass/Vol] 177 mg/dL Critically high 74-106 [facility] Comment on above: Performed By: #### P OCGLUC #### [facility] [address] [place] [address] Dr. Maru Disla Glucose [Mass/Vol] 191 mg/dL Critically high 74-106 [facility] Comment on above: Performed By: #### P OCGLUC #### [facility] [address] [place] [address] Dr. Maru Disla PROF CHEM 8 (BAS METB)on Anion gap [Moles/Vol] 11.4 mmol/L Normal [facility] Comment on above: Performed By: #### M ALBR #### [facility] [address] [place] [address] Dr. Maru Disla Calcium [Mass/Vol] 8.9 mg/dL Normal 8.5-10.1 [facility] Comment on above: Performed By: #### M ALBR #### [facility] [address] [place] [address] Dr. Maru Disla Chloride [Moles/Vol] 108 mmol/L Critically high 98-107 [facility] Comment on above: Performed By: #### M ALBR #### [facility] [address] [place] [address] Dr. Maru Disla CO2 [Moles/Vol] 27.9 mmol/L Normal 21.0-32.0 [facility] Comment on above: Performed By: #### M ALBR #### [facility] [address] [place] [address] Dr. Maru Disla Creatinine [Mass/Vol] 0.84 mg/dL Normal 0.55-1.02 [facility] Comment on above: Performed By: #### M ALBR #### [facility] [address] [place] [address] Dr. Maru Disla EGFR-AF BURUNDIAN >60 Normal >=60 [facility] Comment on above: Performed By: #### M ALBR #### [facility] [address] [place] [address] Dr. Maru Disla EGFR-NON AF BURUNDIAN >60 Normal >=60 [facility] Comment on above: Performed By: #### M ALBR #### [facility] [address] [place] [address] Dr. Maru Disla Glucose [Mass/Vol] 202 mg/dL Critically high 74-106 [facility] Comment on above: Performed By: #### M ALBR #### [facility] [address] [place] [address] Dr. Maru Disla Potassium [Moles/Vol] 4.3 mmol/L Normal 3.5-5.1 [facility] Comment on above: Performed By: #### M ALBR #### [facility] [address] [place] [address] Dr. Maru Disla Sodium [Moles/Vol] 143 mmol/L Normal 136-145 [facility] Comment on above: Performed By: #### M ALBR #### [facility] [address] [place] [address] Dr. Maru Disla Urea nitrogen [Mass/Vol] 26.0 mg/dL Critically high 7.0-18.0 [facility] Comment on above: Performed By: #### M ALBR #### [facility] [address] [place] [address] Dr. Maru Disla Urea nitrogen/Creatinine [Mass ratio] 31.0 mg/mg Normal [facility] Comment on above: Performed By: #### M ALBR #### [facility] [address] [place] [address] Dr. Maru Disla CBC AUTO DIFFon 04-06-2022 BASO # 0.0 103/ul Normal 0.0-0.1 [facility] Comment on above: Performed By: #### B MP #### [facility] [address] [place] [address] Dr. Maru Disla Basophils/100 WBC (Bld) 0.1 % Critically low 0.2-2.0 [facility] Comment on above: Performed By: #### B MP #### [facility] [address] [place] [address] Dr. Maru Disla EO # 0.0 103/ul Normal 0.0-0.7 [facility] Comment on above: Performed By: #### B MP #### [facility] [address] [place] [address] Dr. Maru Disla Eosinophils/100 WBC (Bld) 0.1 % Critically low 0.9-7.0 [facility] Comment on above: Performed By: #### B MP #### [facility] [address] [place] [address] Dr. Maru Disla Erythrocyte distribution width (RBC) [Ratio] 13.4 % Normal 11.0-15.0 [facility] Comment on above: Performed By: #### B MP #### [facility] [address] [place] [address] Dr. Maru Disla Hematocrit (Bld) [Volume fraction] 48.5 % Critically high 36.0-48.0 [facility] Comment on above: Performed By: #### B MP #### [facility] [address] [place] [address] Dr. Maru Disla Hemoglobin (Bld) [Mass/Vol] 15.5 g/dL Normal 12.0-16.0 [facility] Comment on above: Performed By: #### B MP #### [facility] [address] [place] [address] Dr. Maru Disla IG # 0.09 10e3/ul Critically high 0.00-0.03 [facility] Comment on above: Performed By: #### B MP #### [facility] [address] [place] [address] Dr. Maru Disla IG % 0.5 % Normal 0.0-0.5 [facility] Comment on above: Performed By: #### B MP #### [facility] [address] [place] [address] Dr. Maru Disla LYMPH # 0.9 103/ul Critically low 1.2-3.8 [facility] Comment on above: Performed By: #### B MP #### [facility] [address] [place] [address] Dr. Maru Disla Lymphocytes/100 WBC (Bld) 4.5 % Critically low 20.5-60.0 [facility] Comment on above: Performed By: #### B MP #### [facility] [address] [place] [address] Dr. Maru Disla MANUAL DIFF REQ NO Normal [facility] Comment on above: Performed By: #### B MP #### [facility] [address] [place] [address] Dr. Maru Disla MCH (RBC) [Entitic mass] 30.0 pg Normal 26.7-34.0 [facility] Comment on above: Performed By: #### B MP #### [facility] [address] [place] [address] Dr. Maru Disla MCHC (RBC) [Mass/Vol] 32.0 g/dL Normal 29.9-35.2 [facility] Comment on above: Performed By: #### B MP #### [facility] [address] [place] [address] Dr. Maru Disla MCV (RBC) [Entitic vol] 93.8 fL Normal 81.0-99.0 [facility] Comment on above: Performed By: #### B MP #### [facility] [address] [place] [address] Dr. Maru Disla MONO # 0.7 103/ul Normal 0.3-0.8 [facility] Comment on above: Performed By: #### B MP #### [facility] [address] [place] [address] Dr. Maru Disla Monocytes/100 WBC (Bld) 3.5 % Normal 1.7-12.0 [facility] Comment on above: Performed By: #### B MP #### [facility] [address] [place] [address] Dr. Maru Disla NEUT # 18.2 103/ul Critically high 1.4-6.5 [facility] Comment on above: Performed By: #### B MP #### [facility] [address] [place] [address] Dr. Maru Disla Neutrophils/100 WBC (Bld) 91.3 % Critically high 43.0-75.0 [facility] Comment on above: Performed By: #### B MP #### [facility] [address] [address] [address] Maru Disla Platelet mean volume (Bld) [Entitic vol] 11.2 fL Normal 9.5-13.5 [facility] Comment on above: Performed By: #### B MP #### [facility] [address] [address] [address] Maru Disla PLT 232 103/ul Normal 150-450 [facility] Comment on above: Performed By: #### B MP #### [facility] [address] [address] [address] Maru Disla RBC 5.17 106/ul Normal 4.20-5.40 [facility] Comment on above: Performed By: #### B MP #### [facility] [address] [place] [address] Dr. Maru Disla WBC 19.9 103/ul Critically high 4.0-11.0 [facility] Comment on above: Performed By: #### B MP #### [facility] [address] [address] [address] Maru Disla POINT OF CARE GLUCOSEon 11- Glucose [Mass/Vol] 199 mg/dL Critically high 74-106 [facility] Comment on above: Performed By: #### P OCGLUC #### [facility] [address] [place] [address] Dr. Maru Disla Glucose [Mass/Vol] 109 mg/dL Critically high 74-106 [facility] Comment on above: Performed By: #### A BG #### [facility] [address] [address] [address] Maru Disla Glucose [Mass/Vol] 253 mg/dL Critically high -106 [facility] Comment on above: Performed By: #### P OCGLUC #### [facility] [address] [place] [address] Dr. Maru Disla Glucose [Mass/Vol] 194 mg/dL Critically high -106 [facility] Comment on above: Performed By: #### B MP #### [facility] [address] [address] [address] Maru Disla PROF CHEM 8 (BAS METB)on Anion gap [Moles/Vol] 11.2 mmol/L Normal [facility] Comment on above: Performed By: #### B MP #### [facility] [address] [address] [address] Maru Disla Calcium [Mass/Vol] 8.8 mg/dL Normal 8.5-10.1 [facility] Comment on above: Performed By: #### B MP #### [facility] [address] [place] [address] Dr. Maru Disla Chloride [Moles/Vol] 105 mmol/L Normal 98-107 [facility] Comment on above: Performed By: #### B MP #### [facility] [address] [place] [address] Dr. Maru Disla CO2 [Moles/Vol] 26.8 mmol/L Normal 21.0-32.0 [facility] Comment on above: Performed By: #### B MP #### [facility] [address] [place] [address] Dr. Maru Disla Creatinine [Mass/Vol] 0.66 mg/dL Normal 0.55-1.02 [facility] Comment on above: Performed By: #### B MP #### [facility] [address] [place] [address] Dr. Maru Disla EGFR-AF BURUNDI[place] >60 Normal >=60 [facility] Comment on above: Performed By: #### B MP #### [facility] [address] [address] [address] Maru Disla EGFR-NON AF [place]DI[place] >60 Normal >=60 [facility] Comment on above: Performed By: #### B MP #### [facility] [address] [place] [address] Dr. Maru Disla Glucose [Mass/Vol] 191 mg/dL Critically high 74-106 [facility] Comment on above: Performed By: #### B MP #### [facility] [address] [address] [address] Maru Disla Potassium [Moles/Vol] 5.0 mmol/L Normal 3.5-5.1 [facility] Comment on above: Performed By: #### B MP #### [facility] [address] [address] [address] Maru Disla Sodium [Moles/Vol] 138 mmol/L Normal 136-145 [facility] Comment on above: Performed By: #### B MP #### [facility] [address] [address] [address] Maru Disla Urea nitrogen [Mass/Vol] 21.0 mg/dL Critically high 7.0-18.0 [facility] Comment on above: Performed By: #### B MP #### [facility] [address] [address] [address] Maru Disla Urea nitrogen/Creatinine [Mass ratio] 31.8 mg/mg Normal [facility] Comment on above: Performed By: #### B MP #### [facility] [address] [address] [address] Maru Disla XR CHEST 2 Von [...] CORINE ANGELA Date: 2022-04-06 07:14 Normal [facility] BLOOD GASES BTYon 04-05-2022 02 MODE NASAL CANNULA Normal [facility] Comment on above: Performed By: #### A BG #### [facility] [address] [address] [address] Maru Disla ALLENS TEST Positive Normal [facility] Comment on above: Performed By: #### A BG #### [facility] [address] [place] [address] Dr. Maru Disla Base excess Calc (Bld) [Moles/Vol] -1.6000 mmol/L Normal -2.0-2.0 [facility] Comment on above: Performed By: #### A BG #### [facility] [address] [place] [address] Dr. Maru Disla BIPAP PRESSURE [facility] Comment on above: Performed By: #### A BG #### [facility] [address] [address] [address] Maru Disla CPAP [facility] Comment on above: Performed By: #### A BG #### [facility] [address] [place] [address] Dr. Maru Disla FIO2 [facility] Comment on above: Performed By: #### A BG #### [facility] [address] [place] [address] Dr. Maru Disla HCO3 (Bld) [Moles/Vol] 24.0 mmol/L Normal 22.0-26.0 [facility] Comment on above: Performed By: #### A BG #### [facility] [address] [place] [address] Dr. Maru Disla LPM 2 [facility] Comment on above: Performed By: #### A BG #### [facility] [address] [place] [address] Dr. Maru Disla MINUTE VOLUME Normal [facility] Comment on above: Performed By: #### A BG #### [facility] [address] [place] [address] Dr. Maru Disla Oxygen (Bld) [Partial pressure] 56.1 mm[Hg] Critically low 80.0-100.0 [facility] Comment on above: Performed By: #### A BG #### [facility] [address] [place] [address] Dr. Maru Disla Oxygen saturation in Blood 89.9 % Critically low 95.0-100.0 [facility] Comment on above: Performed By: #### A BG #### [facility] [address] [address] [address] Maru Disla PCO2 43.3 mmHg Normal 35.0-45.0 [facility] Comment on above: Performed By: #### A BG #### [facility] [address] [address] [address] Maru Disla [facility] Comment on above: Performed By: #### A BG #### [facility] [address] [address] [address] Maru Disla pH (Bld) 7.352 [pH] Normal 7.350-7.450 [facility] Comment on above: Performed By: #### A BG #### [facility] [address] [place] [address] Dr. Maru Disla [facility] Comment on above: Performed By: #### A BG #### [facility] [address] [place] [address] Dr. Maru Disla [facility] Comment on above: Performed By: #### A BG #### [facility] [address] [place] [address] Dr. Maru Disla PUNCTURE SITE LR [facility] Comment on above: Performed By: #### A BG #### [facility] [address] [place] [address] Dr. Maru Disla RATE [facility] Comment on above: Performed By: #### A BG #### [facility] [address] [place] [address] Dr. Maru Disla VENT MODE [facility] Comment on above: Performed By: #### A BG #### [facility] [address] [place] [address] Dr. Maru Disla [facility] Comment on above: Performed By: #### A BG #### [facility] [address] [place] [address] Dr. Maru Disla BNPon 04-05-2022 Natriuretic peptide B (Bld) [Mass/Vol] 471.0 pg/mL Normal <=900.0 [facility] Comment on above: Performed By: #### P OCGLUC #### [facility] [address] [place] [address] Dr. Maru Disla CBC AUTO DIFFon 04-05-2022 BASO # 0.0 103/ul Normal 0.0-0.1 [facility] Comment on above: Performed By: #### B MP #### [facility] [address] [place] [address] Dr. Maru Disla Basophils/100 WBC (Bld) 0.3 % Normal 0.2-2.0 [facility] Comment on above: Performed By: #### B MP #### [facility] [address] [place] [address] Dr. Maru Disla EO # 0.0 103/ul Normal 0.0-0.7 [facility] Comment on above: Performed By: #### B MP #### [facility] [address] [place] [address] Dr. Maru Disla Eosinophils/100 WBC (Bld) 0.0 % Critically low 0.9-7.0 [facility] Comment on above: Performed By: #### B MP #### [facility] [address] [place] [address] Dr. Maru Disla Erythrocyte distribution width (RBC) [Ratio] 13.2 % Normal 11.0-15.0 [facility] Comment on above: Performed By: #### B MP #### [facility] [address] [place] [address] Dr. Maru Disla Hematocrit (Bld) [Volume fraction] 52.3 % Critically high 36.0-48.0 [facility] Comment on above: Performed By: #### B MP #### [facility] [address] [place] [address] Dr. Maru Disla Hemoglobin (Bld) [Mass/Vol] 16.6 g/dL Critically high 12.0-16.0 [facility] Comment on above: Performed By: #### B MP #### [facility] [address] [place] [address] Dr. Maru Disla IG # 0.05 10e3/ul Critically high 0.00-0.03 [facility] Comment on above: Performed By: #### B MP #### [facility] [address] [place] [address] Dr. Maru Disla IG % 0.4 % Normal 0.0-0.5 [facility] Comment on above: Performed By: #### B MP #### [facility] [address] [place] [address] Dr. Maru Disla LYMPH # 1.5 103/ul Normal 1.2-3.8 [facility] Comment on above: Performed By: #### B MP #### [facility] [address] [place] [address] Dr. Maru Disla Lymphocytes/100 WBC (Bld) 10.7 % Critically low 20.5-60.0 [facility] Comment on above: Performed By: #### B MP #### [facility] [address] [place] [address] Dr. Maru Disla MANUAL DIFF REQ NO Normal [facility] Comment on above: Performed By: #### B MP #### [facility] [address] [place] [address] Dr. Maru Disla MCH (RBC) [Entitic mass] 29.7 pg Normal 26.7-34.0 [facility] Comment on above: Performed By: #### B MP #### [facility] [address] [place] [address] Dr. Maru Disla MCHC (RBC) [Mass/Vol] 31.7 g/dL Normal 29.9-35.2 [facility] Comment on above: Performed By: #### B MP #### [facility] [address] [place] [address] Dr. Maru Disla MCV (RBC) [Entitic vol] 93.6 fL Normal 81.0-99.0 [facility] Comment on above: Performed By: #### B MP #### [facility] [address] [place] [address] Dr. Maru Disla MONO # 1.5 103/ul Critically high 0.3-0.8 [facility] Comment on above: Performed By: #### B MP #### [facility] [address] [address] [address] Maru Disla Monocytes/100 WBC (Bld) 11.0 % Normal 1.7-12.0 [facility] Comment on above: Performed By: #### B MP #### [facility] [address] [address] [address] Maru Disla NEUT # 10.8 103/ul Critically high 1.4-6.5 [facility] Comment on above: Performed By: #### B MP #### [facility] [address] [address] [address] Maru Disla Neutrophils/100 WBC (Bld) 77.6 % Critically high 43.0-75.0 [facility] Comment on above: Performed By: #### B MP #### [facility] [address] [place] [address] Dr. Maru iDsla Platelet mean volume (Bld) [Entitic vol] 10.1 fL Normal 9.5-13.5 [facility] Comment on above: Performed By: #### B MP #### [facility] [address] [place] [address] Dr. Maru Disla PLT 315 103/ul Normal 150-450 [facility] Comment on above: Performed By: #### B MP #### [facility] [address] [place] [address] Dr. Maru Disla RBC 5.59 106/ul Critically high 4.20-5.40 [facility] Comment on above: Performed By: #### B MP #### [facility] [address] [place] [address] Dr. Maru Disla WBC 13.9 103/ul Critically high 4.0-11.0 [facility] Comment on above: Performed By: #### B MP #### [facility] [address] [place] [address] Dr. Maru Disla CULTURE BLOODon 04-05-2022 Microscopic examination of blood, culture Culture Observations: NO GROWTH AT 5 DAYS. Normal [facility] Comment on above: Performed By: #### B MP #### [facility] [address] [place] [address] Dr. Maru Disla Covid-19 PCR ([facility])on SARS-CoV-2 (COVID-19) RNA NICOLETTE+probe Ql (Unsp spec) Not detected Normal NOT DETECTED [facility] Comment on above: Result Comment: [...] for this test is supported by the [employer] and Human Service's declaration that [...] used). Performed By: #### M ALBR #### [facility] [address] [place] [address] Dr. Maru Disla INFLUENZA A AND B AGon 04-05 INFLUENZA A AG Negative Normal NEGATIVE SEE COMMENT [facility] Comment on above: Performed By: #### P OCGLUC #### [facility] [address] [place] [address] Dr. Maru Disla INFLUENZA B AG Negative Normal NEGATIVE SEE COMMENT [facility] Comment on above: Performed By: #### P OCGLUC #### [facility] [address] [place] [address] Dr. Maru Disla INTERNAL CONTROLS Within Normal Limits Normal Wi thin Normal Limits [facility] Comment on above: Performed By: #### P OCGLUC #### [facility] [address] [place] [address] Dr. Maru Disla LACTATE/LACTIC ACIDon 2021 Lactate [Moles/Vol] 3.1 mmol/L Critically high 0.4-1.9 [facility] Comment on above: Performed By: #### L ACT #### [facility] [address] [place] [address] Dr. Maru Disla Lactate [Moles/Vol] 3.1 mmol/L Critically high 0.4-1.9 [facility] Comment on above: Performed By: #### B MP #### [facility] [address] [address] [address] Maru Disla POINT OF CARE GLUCOSEon 11 Glucose [Mass/Vol] 290 mg/dL Critically high 74-106 [facility] Comment on above: Performed By: #### M ALBR #### [facility] [address] [place] [address] Dr. Maru Disla Glucose [Mass/Vol] 309 mg/dL Critically high 74-106 [facility] Comment on above: Performed By: #### A BG #### [facility] [address] [place] [address] Dr. Maru Disla Glucose [Mass/Vol] 289 mg/dL Critically high -106 [facility] Comment on above: Performed By: #### P OCGLUC #### [facility] [address] [place] [address] Dr. Maru Disla Glucose [Mass/Vol] 325 mg/dL Critically high -106 [facility] Comment on above: Performed By: #### M ALBR #### [facility] [address] [place] [address] Dr. Maru Disla PROF 14(COMP METB)on 022 Albumin [Mass/Vol] 3.3 g/dL Critically low 3.4-5.0 [facility] [place] Comment on above: Performed By: #### P OCGLUC #### [facility] [address] [place] [address] Dr. Maru Disla Albumin/Globulin [Mass ratio] 0.7 {ratio} Normal [facility] Comment on above: Performed By: #### P OCGLUC #### [facility] [address] [address] [address] Maru Disla ALP [Catalytic activity/Vol] 105 U/L Normal 46-116 [facility] Comment on above: Performed By: #### P OCGLUC #### [facility] [address] [address] [address] Maru Disla ALT [Catalytic activity/Vol] 15 U/L Normal 14-59 [facility] Comment on above: Performed By: #### P OCGLUC #### [facility] [address] [address] [address] Maru Disla Anion gap [Moles/Vol] 13.2 mmol/L Normal [facility] Comment on above: Performed By: #### P OCGLUC #### [facility] [address] [address] [address] Maru Disla AST [Catalytic activity/Vol] 12 U/L Critically low 15-37 [facility] Comment on above: Performed By: #### P OCGLUC #### [facility] [address] [address] [address] Maru Disla Bilirubin [Mass/Vol] 0.4 mg/dL Normal 0.2-1.0 [facility] Comment on above: Performed By: #### P OCGLUC #### [facility] [address] [place] [address] Dr. Maru Disla Calcium [Mass/Vol] 8.8 mg/dL Normal 8.5-10.1 [facility] Comment on above: Performed By: #### P OCGLUC #### [facility] [address] [place] [address] Dr. Maru Disla Chloride [Moles/Vol] 101 mmol/L Normal 98-107 [facility] Comment on above: Performed By: #### P OCGLUC #### [facility] [address] [address] [address] Maru Disla CO2 [Moles/Vol] 26.0 mmol/L Normal 21.0-32.0 [facility] Comment on above: Performed By: #### P OCGLUC #### [facility] [address] [address] [address] Maru Disla Creatinine [Mass/Vol] 1.03 mg/dL Critically high 0.55-1.02 [facility] Comment on above: Performed By: #### P OCGLUC #### [facility] [address] [address] [address] Maru Disla EGFR-AF BURUNDIAN >60 Normal >=60 [facility] Comment on above: Performed By: #### P OCGLUC #### [facility] [address] [address] [address] Maru Disla EGFR-NON AF B[place]UNDIAN 54 mL/min/1.73m2 Critically low >=60 [facility] Comment on above: Performed By: #### P OCGLUC #### [facility] [address] [address] [address] Maru Disla Globulin (S) [Mass/Vol] 4.5 g/dL Normal [facility] Comment on above: Performed By: #### P OCGLUC #### [facility] [address] [address] [address] Maru Disla Glucose [Mass/Vol] 264 mg/dL Critically high 74-106 [facility] Comment on above: Performed By: #### P OCGLUC #### [facility] [address] [address] [address] Maru Disla Potassium [Moles/Vol] 4.2 mmol/L Normal 3.5-5.1 [facility] Comment on above: Performed By: #### P OCGLUC #### [facility] [address] [address] [address] Maru Disla Protein [Mass/Vol] 7.8 g/dL Normal 6.4-8.2 [facility] Comment on above: Performed By: #### P OCGLUC #### [facility] [address] [address] [address] Maru Disla Sodium [Moles/Vol] 136 mmol/L Normal 136-145 [facility] Comment on above: Performed By: #### P OCGLUC #### [facility] [address] [place] [address] Dr. Maru Disla Urea nitrogen [Mass/Vol] 14.0 mg/dL Normal 7.0-18.0 [facility] Comment on above: Performed By: #### P OCGLUC #### [facility] [address] [address] [address] Maru Disla Urea nitrogen/Creatinine [Mass ratio] 13.6 mg/mg Normal [facility] Comment on above: Performed By: #### P OCGLUC #### [facility] [address] [address] [address] Maru Disla TROPONIN, HIGH SENSITIVITYon 04-05-2022 HSTROP 10.5 pg/mL Normal 4.0-51.3 [facility] Comment on above: Result Comment: CUT- OFF POINTS HAVE BEEN ESTABLISHED BASED ON THE FOURTH UNIVERSAL DEFINITIONS OF MYOCARDIAL INFARCTION. THE UPPER REFERENCE LIMIT (URL) OF TROPONIN, DEFINED THE 99TH PERCENTILE OF cTnI DISTRIBUTION IN A REFERENCE POPULATION, HAS BEEN CONFIRMED THE DECISION THRESHOLD FOR OR DIAGNOSIS. Performed By: #### A BG #### [facility] [address] [place] [address] Dr. Maru Disla XR CHEST 1 Von [...] by: YECENIA MONTERO Date: 2022-04-05 06:51 Normal [facility] Vital Signs Date Time Vital Sign Value Performing Clinician Facility 03-20-2024 09:07-0400 Body temperature 96.91 [degF] Malik Ramos APRN-ASSOCIATE EDITOR Work Phone: [facility] 03-20-2024 09:07-0400 Diastolic blood pressure 48 mm[Hg] Malik Ramos APRN-ASSOCIATE EDITOR Work Phone: [facility] 03-20-2024 09:07-0400 Heart rate 76 /min Malik Ramos APRN-ASSOCIATE EDITOR Work Phone: [facility] 03-20-2024 09:07-0400 Respiratory rate 16 /min Malik Ramos BARREL RACER-ASSOCIATE EDITOR Work Phone: [facility] 03-20-2024 09:07-0400 Systolic blood pressure 100 mm[Hg] Malik Ramos BARREL RACER-ASSOCIATE EDITOR Work Phone: [facility] 03-11-2024 10:25-0400 Body height 167.6 cm Maira Aichholz HVAC R INSTRUCTOR Work Phone: [facility] 03-11-2024 10:25-0400 Body mass index (BMI) [Ratio] 33.28 kg/m2 Maira Aichholz HVAC R INSTRUCTOR Work Phone: [facility] 03-11-2024 10:25-0400 Body temperature 98.1 [degF] Maira Aichholz HVAC R INSTRUCTOR Work Phone: [facility] 03-11-2024 10:25-0400 Body weight 93.53 kg Maira Aichholz HVAC R INSTRUCTOR Work Phone: [facility] 03-11-2024 10:25-0400 Diastolic blood pressure 80 mm[Hg] Maira Aichholz HVAC R INSTRUCTOR Work Phone: [facility] 03-11-2024 10:25-0400 Heart rate 71 /min Maira Aichholz HVAC R INSTRUCTOR Work Phone: [facility] 03-11-2024 10:25-0400 Respiratory rate 18 /min Maira Aichholz HVAC R INSTRUCTOR Work Phone: [facility] 03-11-2024 10:25-0400 SaO2% (BldA) [Mass fraction] 96 % Maira Aichholz HVAC R INSTRUCTOR Work Phone: [facility] 03-11-2024 10:25-0400 Systolic blood pressure 122 mm[Hg] Maira Aichholz HVAC R INSTRUCTOR Work Phone: [facility] 07-18-2023 14:27-0500 Body height 167.6 cm Maira Aichholz HVAC R INSTRUCTOR Work Phone: [facility] 07-18-2023 14:27-0500 Body mass index (BMI) [Ratio] 38.29 kg/m2 Maira Aichholz HVAC R INSTRUCTOR Work Phone: [facility] 07-18-2023 14:27-0500 Body temperature 98.01 [degF] Maira Aichholz HVAC R INSTRUCTOR Work Phone: [facility] 07-18-2023 14:27-0500 Body weight 107.59 kg Maira Aichholz HVAC R INSTRUCTOR Work Phone: [facility] 07-18-2023 14:27-0500 Diastolic blood pressure 78 mm[Hg] Maira Aichholz HVAC R INSTRUCTOR Work Phone: [facility] 07-18-2023 14:27-0500 Heart rate 79 /min Maira Aichholz HVAC R INSTRUCTOR Work Phone: [facility] 07-18-2023 14:27-0500 Respiratory rate 19 /min Maira Aichholz HVAC R INSTRUCTOR Work Phone: [facility] 07-18-2023 14:27-0500 SaO2% (BldA) [Mass fraction] 97 % Maira Kenahholz HVAC R INSTRUCTOR Work Phone: [facility] 07-18-2023 14:27-0500 Systolic blood pressure 142 mm[Hg] Maira Aichholz HVAC R INSTRUCTOR Work Phone: [facility] Healthcare Encounters Encounter Date Encounter Type Care Provider Facility Start: 03-20-2024 End: 03-20-2024 Office outpatient new 20 minutes Malik Ramos BARREL RACER-ASSOCIATE EDITOR Work Phone: [facility] Comment on above: Type 2 diabetes gayatri itus with other skin ulcer, with long-term current use of insulin [place] (Primary Dx); Stage III pressure ulcer of sacral region ([facility] Open wound Start: 03-20-2024 End: 03-20-2024 ambulatory MALIK RAMOS [facility] Start: 03-18-2024 End: 03-18-2024 Refill Maira Aichholz HVAC R INSTRUCTOR Work Phone: [facility] Comment on above: COPD mixed type (CMS /HCC) (Primary Dx); URI, acute COPD mixed type (CMS /HCC); URI, acute Start: 03-16-2024 End: 03-16-2024 Refill Maira Aichholz HVAC R INSTRUCTOR Work Phone: [facility] Comment on above: Primary hypertension ([facility]/HCC) (Primary Dx); Edema of extremities Start: 03-11-2024 End: 03-11-2024 Bamboo flowsheet Maira Aichholz HVAC R INSTRUCTOR Work Phone: [facility] Start: 03-11-2024 End: 03-11-2024 Bamboo flowsheet Maira Aichholz HVAC R INSTRUCTOR Work Phone: [facility] Start: 03-11-2024 End: 03-11-2024 Office outpatient visit 25 minutes Maira Aichholz HVAC R INSTRUCTOR Work Phone: [facility] Comment on above: Viral upper respirat ory tract infection (Primary Dx); Tobacco user; Open wound; Obesity (BMI 30-39.9); Type 2 diabetes mellitus without complication, with long-term current use of insulin ([facility]) Start: 03-11-2024 End: 03-11-2024 ambulatory MAIRA AICHHOLZ Not Available Start: 02-25-2024 End: 02-25-2024 ambulatory MAIRA AICHHOLZ Not Available Start: 02-17-2024 End: 02-17-2024 ambulatory MAIRA AICHHOLZ Not Available Start: 01-23-2024 End: 01-23-2024 ambulatory CHAPITO DAMICO [facility] Start: 01-16-2024 End: 01-22-2024 ambulatory YVES GIL [facility] Start: 01-16-2024 End: 01-22-2024 Emergency department patient visit CHIKI TERRY [facility] Start: 01-16-2024 End: 01-22-2024 ambulatory MAIRA J FATOUZ [facility] Start: 11-19-2023 End: 11-19-2023 ambulatory MAIRA AICHHOLZ Not Available Start: 10-16-2023 End: 10-16-2023 ambulatory MAIRA AICHHOLZ Not Available Start: 07-18-2023 End: 07-18-2023 Office outpatient visit 25 minutes Mairasunny Rush HVAC R INSTRUCTOR Work Phone: [facility] Comment on [...] Available Start: 07-18-2023 Bamboo flowsheet Maira Fatouz HVAC R INSTRUCTOR Work Phone: [facility] Start: 07-18-2023 Bamboo flowsheet Maira Fatouz HVAC R INSTRUCTOR Work Phone: [facility] Start: 01-08-2023 End: 01-08-2023 ambulatory [facility] Start: 10-02-2022 End: 10-03-2022 ambulatory ASSOCIATE EDITOR MAIRA KENAHHOLZ Facility:[facility] Start: 08-09-2022 End: 08-10-2022 ambulatory ASSOCIATE EDITOR MAIRA AICHHOLZ Facility:[facility] Start: 07-12-2022 ambulatory [facility] Start: 06-21-2022 End: 06-22-[address] CORINE ANGELA Facility:[facility] Start: 06-20-2022 End: 06-21-2022 ambulatory ASSOCIATE EDITOR MAIRA AICHHOLZ Facility:[facility] Start: 06-07-2022 End: 06-07-2022 ambulatory Robert Hart Facility:[facility] Start: 04-05-2022 End: 04-09-2022 Evaluation and management of inpatient DR TERI BLOCK . Facility:[facility] Start: 11-23-2021 End: 11-23-2021 ambulatory DMITRY RUSH Facility: Start: 09-30-2018 End: 10-01-2018 Patient encounter procedure DEFAULT PHYSICIAN Facility:[facility] Start: 09-15-2018 End: 09-16-2018 Patient encounter procedure DEFAULT PHYSICIAN Facility:[facility] Procedures Date Procedure Procedure Detail Performing Clinician Start: 08-05-2023 Mammography Maira santiago HVAC R INSTRUCTOR Work Phone: Start: 06-19-2022 Mammography Maira Terrance santiago HVAC R INSTRUCTOR Work Phone: Start: 02-14-2015 Colonoscopy Maira Terrance santiago HVAC R INSTRUCTOR Work Phone: Plan of Treatment Date Care Activity Detail Author Start: 11-24-2031 DTaP,Tdap and Td Vaccines (3 - Td or Tdap) DTaP,Tdap and Td Vaccines (3 - Td or Tdap) [facility] Start: 03-20-2025 Tobacco Screening Tobacco Screening [facility] Start: 02-14-2025 Screening for malign ant neoplasm of colon [facility] Start: 02-06-2025 Adult BMI Screening Adult BMI Screen ing [facility] Start: 08-04-2024 Screening for malign ant neoplasm of breast Mammogram [facility] Start: 08-04-2024 Urine screening for protein Diabetes: Urine Protein Screening [facility] Start: 04-22-2024 End: 04-22-2024 Patient encounter procedure 04/22/2024 9:20 AM EST [facility] [address] [place] [phone] Maira Rush NP [address] [place] [address] [facility] Start: 04-03-2024 End: 04-03-2024 Patient encounter procedure 04/03/2024 9:20 AM EDT Office Visit [facility] [address] [facility] [place] [phone] Malik Ramos, BARREL RACER-ASSOCIATE EDITOR [address] [place] [address] Alley Lemus, BARREL RACER-ASSOCIATE EDITOR [address] [place] [address] [facility] Start: 03-11-2024 End: 03-11-2024 Patient encounter procedure 03/11/2024 10:00 AM EDT Office Visit [facility] [address] [place] [phone] Maira Rush, ARLEN [address] [place] [phone] Arrived [facility] Comment on above: Arrived Start: 02-02-2024 COVID-19 Vaccine ( season) COVID-19 Vaccine ( season) [facility] Start: 02-02-2024 Influenza vaccination Influenza Vacc ine [facility] Start: 11-05-2023 Hemoglobin A1c measurement Diabetes: Hemoglobin A1C [facility] Start: 10-16-2023 End: 10-16-2023 Patient encounter procedure 10/16/2023 9:20 AM EDT Office Visit [facility] [address] [place] [phone] Maira Rush, ARLEN [address] [place] [phone] [facility] Start: 08-16-2023 End: 09-15-2024 MG Breast - bilateral Screening Bilateral screening mammogram Imaging Routine Encounter for screening mammogram for malignant neoplasm of breast Expected: 08/16/2023 (Approximate), Expires: 09/15/2024 [facility] Comment on above: Expected: 08/16/2023 (Approximate), Expires: 09/15/2024 Start: 08-10-2023 Urine screening for protein Diabetes: Urine Protein Screening [facility] Start: 07-18-2023 End: 07-18-2023 Patient encounter procedure 07/18/2023 2:20 PM EST Office Visit [facility] [address] [place] [address] aMira Rush NP [address] [place] [address] Type 2 diabetes mellitus with diabetic neuropathy, with long-term current use of insulin (CMS/HCC) (Primary Dx); Primary hypertension (CMS/HCC); Gastroesophageal reflux disease, unspecified whether esophagitis present; Vitamin D deficiency; Type 2 diabetes mellitus with complication, without long-term current use of insulin (CMS/HCC); Mixed hyperlipidemia (CMS/HCC); Encounter for screening mammogram for malignant neoplasm of breast [facility] Comment on above: Type 2 [...] Expected: 07/18/2023 (Approximate), Expires: 07/18/2024 [facility] Comment on above: Expected: 07/18/2023 (Approximate), Expires: 07/18/2024 Start: 07-18-2023 End: 07-18-2024 CBC W Auto Differential panel - Blood CBC and differential Lab Routine Gastroesophageal reflux disease, unspecified whether esophagitis present Expected: 07/18/2023 (Approximate), Expires: 07/18/2024 [facility] Work Phone: Comment on above: Expected: 07/18/2023 (Approximate), Expires: 07/18/2024 Start: 07-18-2023 End: 07-18-2024 Comprehensive metabolic 2000 panel - Serum or Plasma Comprehensive metabolic panel Lab Routine Primary hypertension (CMS/HCC) Type 2 diabetes mellitus with complication, without long-term current use of insulin (CMS/HCC) Mixed hyperlipidemia (CMS/HCC) Expected: 07/18/2023 (Approximate), Expires: 07/18/2024 [facility] Comment on above: Expected: 07/18/2023 (Approximate), Expires: 07/18/2024 Start: 07-18-2023 End: 07-18-2024 Hemoglobin A1c/Hemoglobin.total in Blood Hemoglobin A1c Lab Routine Type 2 diabetes mellitus with complication, without long-term current use of insulin (CMS/HCC) Expected: 07/18/2023 (Approximate), Expires: 07/18/2024 [facility] Comment on above: Expected: 07/18/2023 (Approximate), Expires: 07/18/2024 Start: 07-18-2023 End: 07-18-2024 Lipid 1996 panel - Serum or Plasma Lipid panel Lab Routine Mixed hyperlipidemia (CMS/HCC) Expected: 07/18/2023 (Approximate), Expires: 07/18/2024 [facility] Comment on above: Expected: 07/18/2023 (Approximate), Expires: 07/18/2024 Start: 07-18-2023 End: 07-18-2024 Microalbumin/Creatinine panel in random Urine Microalbumin / creatinine, urine ratio Lab Routine Type 2 diabetes mellitus with complication, without long-term current use of insulin (CMS/HCC) Expected: 07/18/2023 (Approximate), Expires: 07/18/2024 [facility] Comment on above: Expected: 07/18/2023 (Approximate), Expires: 07/18/2024 Start: 07-18-2023 End: 07-18-2024 Urinalysis complete panel - Urine Urinalysis with reflex microscopic (clean catch) Lab Routine Type 2 diabetes mellitus with complication, without long-term current use of insulin (CMS/HCC) Expected: 07/18/2023 (Approximate), Expires: 07/18/2024 [facility] Comment on above: Expected: 07/18/2023 (Approximate), Expires: 07/18/2024 Start: 06-19-2023 Screening for malign ant neoplasm of breast Mammogram [facility] Start: 02-01-2023 Influenza vaccination Influenza Vacc ine (#1) [facility] Start: 01-07-2019 Hemoglobin A1c measurement Diabetes: Hemoglobin A1C [facility] Start: 2009 Administration of varicella zoster vaccine Zoster (Shingles) Vaccine (1 of 2) [facility] Start: 1989 Screening for malign ant neoplasm of cervix [facility] Start: 1980 Screening for malign ant neoplasm of cervix Pap Smear [facility] Start: 1977 Adult BMI Follow Up Plan Adult BMI F ollow Up Plan [facility] Start: 1977 Diabetic foot examination Diabetic Foot Exam [facility] Start: 1971 Depression Screening Depression Scre ening [facility] Start: 1969 Glaucoma screening Diabetes: R etinopathy Screening [facility] Start: 1959 Glaucoma screening Diabetic Op hthalmology Exam [facility] Start: 1959 Screening for malign ant neoplasm of colon [facility] Start: 1959 Tobacco Counseling Tobacco Counselin g [facility] Immunizations Immunization Date Immunization Notes Care Provider Fa cility 04-05-2022 influenza, injectabl e, quadrivalent, preservative free Maira Fatouz HVAC R INSTRUCTOR Work Phone: [facility] 04-05-2022 pneumococcal polysaccharide vaccine, 23 valent Maira Aichholz HVAC R INSTRUCTOR Work Phone: [facility] 04-05-2022 influenza virus vacc ine, unspecified formulation Maira Aichvaz HVAC R INSTRUCTOR Work Phone: [facility] 11-23-2021 diphtheria, tetanus toxoids and pertussis vaccine Maira Aichholz HVAC R INSTRUCTOR Work Phone: [facility] 03-24-2020 tetanus toxoid, redu joaquin diphtheria toxoid, and acellular pertussis vaccine, adsorbed Maira Aichholz HVAC R INSTRUCTOR Work Phone: [facility] Healthcare 03-25-2017 Influenza, injectabl e, Madin Arline Canine Kidney, preservative free, quadrivalent Maira Victor Manuel HVAC R INSTRUCTOR Work Phone: [facility] Healthcare Payers Date Payer Category Payer Medicaid [facility] MEDICAID [place] [id number] 2017-Present [address] [place] [id number] 2017 Medicaid (Managed Care) [facility] MEDICAID [id number] 2003 Medicaid HMO [employer] [id number] 1959 Unknown [id number] 1959 Unknown [id number] 1959 Unknown [id number] 1959 Unknown [id number] 1959 Unknown [id number] 1959 Unknown [id number] 2.16.840.1.440127.3.579.2. 593 1960 Unknown [id number] 2.16.840.1.125078.3.579.2. 593 1960 Unknown [id number] 2.16.840.1.356839.3.579.2. 593 1959 Unknown [id number] 2.16.840.1.227587.3.579.2. 593 1959 Unknown [id number] 2.16.840.1.029507.3.579.2. 1286 1959 Unknown [id number] 2.16.840.1.733219.3.579.2. 1286 1959 Unknown [id number] 2.16.840.1.374490.3.579.2. 1259 1959 Unknown [id number] 2.16.840.1.260976.3.579.2. 1259 1959 Unknown [id number] 2.16.840.1.813637.3.579.2. 1259 1959 Unknown [id number] 2.16.840.1.554774.3.579.2. 1259 1959 Unknown [id number] 2.16.840.1.618431.3.579.2. 1259 1959 Unknown [id number] 2.16.840.1.216575.3.579.2. 1259 1959 Unknown [id number] 2.16.840.1.702450.3.579.2. 1286 1959 Unknown [id number] 2.16.840.1.705564.3.579.2. 1286 1959 Unknown [id number] 2.16.840.1.430650.3.579.2. 1286 1959 Unknown [id number] 2.16.840.1.934604.3.579.2. 1286 1959 Unknown [id number] Unknown Social History Date Type Detail Facility Start: 07-15-2023 Tobacco smoking status NHIS Ex-smoker [facility] Start: 06-03-1982 End: 04-03-2022 History of tobacco use Current smoker [facility] Start: 06-03-1982 End: 04-03-2022 History of tobacco use Cigarette Smoker [facility] Start: 07-14-2020 End: 07-15-2023 Cigarettes smoked current (pack per day) - Reported 0.5 [facility] Start: 07-18-2023 End: 03-20-2024 Alcohol intake Ex-drinker (finding) [facility] Start: 07-14-2020 End: 06-29-[address] [facility] Start: 07-15-2023 Alcohol Comment coffee 1-2 cups per day [facility] Start: 1960 Sex Assigned At Not on file [facility] Start: 04-03-2022 Tobacco smoking status [facility] Smokes tobacco daily [facility] Start: 03-20-2024 Tobacco use and exposure Smokeless tobacco non-user [facility] Has the [employer] threatened to shut off services in your home in past 12Mo No [employer] [facility] In the past 12 month s, has lack of transportation kept you from medical appointments or from getting medications? No [employer] [facility] Start: 01-06-2015 Sex Female (finding) [facility] Medical Equipment Procedure Code Equipment Code Equipment Origin al Text Equipment Identifier Dates [id number] Start: 06-24-2023 Goals Date Patient Goal Desired Activity /State Personal health goal Comment on above: Formatting of this n ote might be different from the original. Evaluation of progress towards goal: Patient is agreeable to SNF for therapy. Clinical Notes 06-07-2022 to 03-20-2024 Malik Ramos, BARREL RACER-ASSOCIATE EDITOR - 03/20/2024 9:00 AM EDTPatient InstructionsTelephone Encounter - Maira Victor Manuel, ARLEN - 03/18/2024 8:34 AM EDTTelephone Encounter - Maira Victor Manuel, HVAC R INSTRUCTOR - 03/18/2024 8:34 AM EDT Note Date & Type Note Facility 03-20-2024 History of Presen t illness Narrative Images from the original note were not included. Wound Care Progress Note Patient: Denae Dior Date of : 1960 Chief Complaint:buttock wound, new patient Subjective/HPI: Denae is a 63 y.o. female who present to [facility] for evaluation of 1 ulcer(s) on the sacral area. Patient was first assessed in wound clinic on 03/20/24. Current daily wound care includes OTC zinc cream up to 4 times daily. Reports blood glucose 299 last night which is typical for her. States she has lost weight due to stress putting her in retirement. She does not know how wound occurred [...] List Diagnosis Hyperglycemia Weakness Hypokalemia Atrial fibrillation ([facility]) Chronic obstructive pulmonary disease [place] JORDAN (generalized anxiety disorder) GERD (gastroesophageal reflux disease) HLD (hyperlipidemia) Medical non-compliance Neuropathy, diabetic ([facility] Primary hypertension SANTO (obstructive sleep apnea) Tobacco dependence syndrome Type 2 diabetes mellitus with complication, without long-term current use of insulin ([facility]) Muscle weakness (generalized) Other abnormalities of gait [...] Mid (Active) Wound Image 03/20/24920 Site Assessment Minong;Red 03/20/24920 Stefanie-wound Assessment White;Minong;Intact 03/20/24920 Wound Length (cm) 0.8 cm 03/20/24920 [...] Stage III pressure ulcer of sacral region ([facility]) 2. Open wound Dicussed that pressure [...] ulcer, with long-term current use of insulin ([facility]) (Primary) Patient states she is going to call her glue machine operator for follow up. Encouraged due to consistent [...] short term goal is wound compliance. Our senior care goal is wound closure. Follow up wound [...] electronic or other health record MARY Hines [facility] Office: [phone] Email: [email or web address] Thank you very much for allowing us to participate in your patients care. Your referrals are greatly appreciated, please do not hesitate to contact our service with any questions or concerns regarding the care management. TRISH Zamuido 03/20/24 1021 documented in this encounter [facility] 03-20-2024 Instructions Hillary Daniels RN - 03/20/2024 [...] up your follow up appointment with your glue machine operator (diabetes DR) Length Width Depth Wound 03/20/24 1 Pressure Injury Coccyx Mid-Wound Length (cm): 0.8 cm Wound 03/20/24 1 Pressure Injury Coccyx Mid-Wound Width (cm): 0.2 cm Wound 03/20/24 1 Pressure Injury Coccyx Mid-Wound Depth (cm): 0.1 cm Wound drainage Type Description none [facility]24 Telephone encounter Note Contact provider this morning, she is now starting to cough up yellow mucus and worsening in symtpoms, no fever, no NVD Will send in atb Also needs humidification for her oxygen She is instructed if atb does not help will need fu apppt [place] [facility] 03-18-2024 Miscellaneous Notes Contact provider this morning, she is now starting to cough up yellow mucus and worsening in symtpoms, no fever, no NVD Will send in atb Also needs humidification for her oxygen She is instructed if atb does not help will need fu apppt [place] documented in this encounter [facility] 03-11-2024 History of Presen t illness Narrative Associated Problem(s): Type 2 diabetes mellitus without complication, with long-term current use of insulin ([facility]) Phone number given for pt to [...] D-3) 2,000 Units, Oral, Daily Continuous Glucose Professional System Administrator (FreeStyle Julisa 2 [place]) device Continuous Glucose Sensor (FreeStyle Julisa 2 [...] day (morning and mid-day) Sure Comfort [place] 32G X 4 MM misc 1 each, [...] Medical History: Diagnosis Date Anxiety and depression ([facility]) 07/18/2023 Atrial fibrillation ([facility]) 07/18/2023 COPD mixed type ([facility]) 05/23/2023 Drug-induced acute pancreatitis 07/18/2023 Edema of extremities 07/18/2023 GERD (gastroesophageal reflux disease) 07/18/2023 HLD (hyperlipidemia) ([facility]) 07/18/2023 Medical non-compliance 07/18/2023 Morbid obesity with body mass index (BMI) of 40.0 to 49.9 ([facility]) 07/18/2023 Neuropathy, diabetic [place] [...] complication, with long-term current use of insulin ([facility]) Phone number given for pt to contact Dr Gilman office Relevant Orders Ambulatory referral to Wound Clinic Viral upper respiratory tract infection - Primary Do not see any s/s bacterial infection, lungs clear Did in office Flu A/B/Covid: negative Fluids, rest, monitor for s/s worsening if so call office documented in this encounter [facility] 01-16-2024 Note XR CHEST 1 VW Procedure: Chest x-ray performed Number of views:1 History:Cough Comparison:07/13/2022 Impression: 1. There is patchy airspace disease and effusion in the left lung base. The right lung is clear. There is no pneumothorax. The mediastinal structures are unremarkable. Finalized by Chalo Lang MD on 01/16/2024 8:28 PM [facility] 07-18-2023 History of Presen t illness Narrative Associated Problem(s): Open wound No s/s infection, recommend using diaper barrier ointment on this Associated Problem(s): COVID Recent hospitalization for this, appears to be doing quite well Associated Problem(s): Anxiety and depression ([facility]) Stable at this time Associated Problem(s): Primary hypertension (CMS/HCC) stable Associated Problem(s): COPD mixed type (CMS/HCC) Continues to smoke, refused to quit Cont current meds at this time Associated Problem(s): SANTO (obstructive sleep apnea) Non compliance , has been instructed in the past on importance of need to wear PAP Not wearing risk stroke, OR, Associated Problem(s): Type 2 diabetes mellitus with diabetic neuropathy, with long-term current use of insulin (CMS/HCC) Non compliant with follow up with Endo Explained to her her persistent non compliance will lead to increase risk stroke, OR, blindness, amputation, as well as CKD Instructed [...] 2 puffs, Inhalation, Daily Sure Comfort [place] 32G X 4 MM misc 1 each, [...] Medical History: Diagnosis Date Anxiety and depression ([facility]) 07/18/2023 Atrial fibrillation ([facility]) 07/18/2023 COPD mixed type ([facility]) 05/23/2023 Drug-induced acute pancreatitis 07/18/2023 Edema of extremities 07/18/2023 GERD (gastroesophageal reflux disease) 07/18/2023 HLD (hyperlipidemia) ([facility]) 07/18/2023 Medical non-compliance 07/18/2023 Morbid obesity with body mass index (BMI) of 40.0 to 49.9 ([facility] 07/18/2023 Neuropathy, diabetic ([facility]) 07/18/2023 SANTO (obstructive sleep apnea) 07/18/2023 Osteoporosis ([facility]) 07/18/2023 Seasonal allergies 07/18/2023 Tobacco user 07/18/2023 Type 2 diabetes mellitus with complication, without long-term current use of insulin ([facility]) 07/18/2023 Urge and stress incontinence 07/18/2023 [...] Items Addressed This Visit COPD mixed type ([facility]) Continues to smoke, refused to quit Cont current meds at this time Primary hypertension ([facility]) stable Relevant Orders Comprehensive metabolic panel Type 2 diabetes mellitus with diabetic neuropathy, with long-term current use of insulin ([facility]) - Primary Non compliant with follow up with Endo Explained to her her persistent non compliance will lead to increase risk stroke, OR, blindness, amputation, as well as CKD Instructed [...] to wear PAP Not wearing risk stroke, OR, GERD (gastroesophageal reflux disease) Relevant Orders CBC and differential Vitamin D deficiency Relevant Orders Vitamin D 25 hydroxy Type 2 diabetes mellitus with complication, without long-term current use of insulin ([facility]) Relevant Orders Comprehensive metabolic panel Microalbumin / creatinine, urine ratio Urinalysis with reflex microscopic (clean catch) Hemoglobin A1c HLD (hyperlipidemia) ([facility]) Relevant Orders Lipid panel Comprehensive metabolic panel Anxiety and depression ([facility]) Stable at this time Encounter for screening mammogram for malignant neoplasm of breast Relevant Orders Bilateral screening mammogram COVID Recent hospitalization for this, appears to be doing quite well Open wound No s/s infection, recommend using diaper barrier ointment on this documented in this encounter [facility] 01-08-2023 Note Patient here for 6 m o follow up hypertension, PAF, and MALAVE. Metoprolol was switched to carvedilol at last apt in Jun 2022. Had routine labs in August 2022. Denies chest pain, palpitations, and bleeding on Xarelto. Doing well cardiac omntana. Review of Systems Cardiovascular: Positive for dyspnea on exertion and leg swelling. Respiratory: Positive for cough. Neurological: Positive for light-headedness. All other systems reviewed and are negative. [facility] 01-08-2023 Note Cardiology Clinic No te Subjective [...] Lexiscan stress test (more content not included)... [facility] 06-07-2022 Note PROCEDURE: XR FOOT L T [...] by: ROBERT HART Date: 2022-06-07 08:43 [facility] Evaluation note Diagnosis Primary hypertension [...] mass index (BMI) of 40.0 to 49.9 ([facility]) documented in this encounter [facility]* Diagnosis Viral upper respiratory tract infection- Primary Acute upper respiratory infections of unspecified site Tobacco user Tobacco use disorder Open wound Open wound(s) (multiple) of unspecified site(s), without mention of complication Obesity (BMI 30-39.9) Type 2 diabetes mellitus without complication, with long-term current use of insulin ([facility]) documented in this encounter [facility]* Diagnosis Primary hypertension ([facility])- Primary Unspecified essential hypertension Type 2 diabetes mellitus with diabetic neuropathy, with long-term current use of insulin ([facility]) Gastroesophageal reflux disease, unspecified whether esophagitis present Vitamin D deficiency Type 2 diabetes mellitus with complication, without long-term current use of insulin ([facility]) Mixed hyperlipidemia ([facility]) Mixed hyperlipidemia Encounter for screening mammogram for malignant neoplasm of breast SANTO (obstructive sleep apnea) Obstructive sleep apnea (adult) (pediatric) COPD mixed type ([facility]) Anxiety and depression ([facility]) COVID Open wound Open wound(s) (multiple) of unspecified site(s), without mention of complication Morbid obesity with body mass index (BMI) of 40.0 to 49.9 ([facility]) COPD mixed type ([facility])- Primary Dysuria Atrial fibrillation, unspecified type ([facility]) Gastroesophageal reflux disease, unspecified whether esophagitis present Type 2 diabetes mellitus with complication, without long-term current use of insulin ([facility]) Obesity (BMI 30-39.9) Tobacco user Tobacco use disorder Anxiety and depression ([facility]) Dermatitis Contact dermatitis and other eczema, due to unspecified cause Anxiety and depression ([facility])- Primary Obesity (BMI 30-39.9) Type 2 diabetes mellitus with complication, without long-term current use of insulin ([facility]) Medical non-compliance Tobacco user Tobacco use disorder Type 2 diabetes mellitus with hyperglycemia ([facility])- Primary Primary hypertension ([facility]) Unspecified essential hypertension Edema of extremities Edema Type 2 diabetes mellitus without complication, with long-term current use of insulin ([facility]) Vitamin D deficiency Tobacco user Tobacco use disorder Dizziness and giddiness Atrial fibrillation, unspecified type ([facility]) COPD mixed type ([facility]) Open wound of buttock, unspecified laterality, initial encounter- Primary Type 2 diabetes mellitus without complication, with long-term current use of insulin ([facility]) Obesity (BMI 30-39.9) Dizziness and giddiness Viral upper respiratory tract infection- Primary Acute upper respiratory infections of unspecified site Tobacco user Tobacco use disorder Open wound Open wound(s) (multiple) of unspecified site(s), without mention of complication Obesity (BMI 30-39.9) Type 2 diabetes mellitus without complication, with long-term current use of insulin ([facility]) Primary hypertension ([facility])- Primary Unspecified essential hypertension Edema of extremities Edema documented in this encounter [facility]* Diagnosis Primary hypertension ([facility])- Primary Unspecified essential hypertension Type 2 diabetes mellitus with diabetic neuropathy, with long-term current use of insulin ([facility]) Gastroesophageal reflux disease, unspecified whether esophagitis present Vitamin D deficiency Type 2 diabetes mellitus with complication, without long-term current use of insulin ([facility]) Mixed hyperlipidemia ([facility]) Mixed hyperlipidemia Encounter for screening mammogram for malignant neoplasm of breast SANTO (obstructive sleep apnea) Obstructive sleep apnea (adult) (pediatric) COPD mixed type ([facility]) Anxiety and depression ([facility]) COVID Open wound Open wound(s) (multiple) of unspecified site(s), without mention of complication Morbid obesity with body mass index (BMI) of 40.0 to 49.9 ([facility]) COPD mixed type ([facility])- Primary Dysuria Atrial fibrillation, unspecified type ([facility]) Gastroesophageal reflux disease, unspecified whether esophagitis present Type 2 diabetes mellitus with complication, without long-term current use of insulin ([facility]) Obesity (BMI 30-39.9) Tobacco user Tobacco use disorder Anxiety and depression ([facility]) Dermatitis Contact dermatitis and other eczema, due to unspecified cause Anxiety and depression ([facility])- Primary Obesity (BMI 30-39.9) Type 2 diabetes mellitus with complication, without long-term current use of insulin ([facility]) Medical non-compliance Tobacco user Tobacco use disorder Type 2 diabetes mellitus with hyperglycemia ([facility])- Primary Primary hypertension ([facility]) Unspecified essential hypertension Edema of extremities Edema Type 2 diabetes mellitus without complication, with long-term current use of insulin ([facility]) Vitamin D deficiency Tobacco user Tobacco use disorder Dizziness and giddiness Atrial fibrillation, unspecified type ([facility]) COPD mixed type ([facility]) Open wound of buttock, unspecified laterality, initial encounter- Primary Type 2 diabetes mellitus without complication, with long-term current use of insulin ([facility]) Obesity (BMI 30-39.9) Dizziness and giddiness Viral upper respiratory tract infection- Primary Acute upper respiratory infections of unspecified site Tobacco user Tobacco use disorder Open wound Open wound(s) (multiple) of unspecified site(s), without mention of complication Obesity (BMI 30-39.9) Type 2 diabetes mellitus without complication, with long-term current use of insulin ([facility]) COPD mixed type ([facility])- Primary URI, acute Acute upper respiratory infections of unspecified site documented in this encounter [facility]* Diagnosis Primary hypertension ([facility])- Primary Unspecified essential hypertension Type 2 diabetes mellitus with diabetic neuropathy, with long-term current use of insulin ([facility]) Gastroesophageal reflux disease, unspecified whether esophagitis present Vitamin D deficiency Type 2 diabetes mellitus with complication, without long-term current use of insulin ([facility]) Mixed hyperlipidemia ([facility]) Mixed hyperlipidemia Encounter for screening mammogram for malignant neoplasm of breast SANTO (obstructive sleep apnea) Obstructive sleep apnea (adult) (pediatric) COPD mixed type ([facility]) Anxiety and depression ([facility]) COVID Open wound Open wound(s) (multiple) of unspecified site(s), without mention of complication Morbid obesity with body mass index (BMI) of 40.0 to 49.9 ([facility]) COPD mixed type ([facility])- Primary Dysuria Atrial fibrillation, unspecified type ([facility]) Gastroesophageal reflux disease, unspecified whether esophagitis present Type 2 diabetes mellitus with complication, without long-term current use of insulin ([facility]) Obesity (BMI 30-39.9) Tobacco user Tobacco use disorder Anxiety and depression ([facility]) Dermatitis Contact dermatitis and other eczema, due to unspecified cause Anxiety and depression ([facility])- Primary Obesity (BMI 30-39.9) Type 2 diabetes mellitus with complication, without long-term current use of insulin ([facility]) Medical non-compliance Tobacco user Tobacco use disorder Type 2 diabetes mellitus with hyperglycemia ([facility])- Primary Primary hypertension ([facility]) Unspecified essential hypertension Edema of extremities Edema Type 2 diabetes mellitus without complication, with long-term current use of insulin ([facility]) Vitamin D deficiency Tobacco user Tobacco use disorder Dizziness and giddiness Atrial fibrillation, unspecified type (CMS/HCC) COPD mixed type ([facility]) Open wound of buttock, unspecified laterality, initial encounter- Primary Type 2 diabetes mellitus without complication, with long-term current use of insulin ([facility]) Obesity (BMI 30-39.9) Dizziness and giddiness Viral upper respiratory tract infection- Primary Acute upper respiratory infections of unspecified site Tobacco user Tobacco use disorder Open wound Open wound(s) (multiple) of unspecified site(s), without mention of complication Obesity (BMI 30-39.9) Type 2 diabetes mellitus without complication, with long-term current use of insulin ([facility]) COPD mixed type ([facility]) URI, acute Acute upper respiratory infections of unspecified site documented [facility] Diagnosis Type 2 diabetes mellitus with other skin ulcer, with long-term current use of insulin ([facility])- Primary Stage III pressure ulcer of sacral region ([facility]) Open wound Open wound(s) (multiple) of unspecified site(s), without mention of complication documented in this encounter [facility] for referral (narrative)* Consultation (Routine) - Pending Review Specialty Diagnoses / Procedures Referred By Darcie joshua Referred To Contact Wound Care Diagnoses Open wound Type 2 diabetes mellitus without complication, with long-term current use of insulin ([facility]) Procedures MT OFFICE/OUTPATIENT NEW HIGH MDM 60 MINUTES Maira Rush NP [address] [place] [address] Referral ID Status Reason Start Date Expiration Date Visits Requested Visits Authorized [id number] Pending Review Specialty Services Required 03/11/2024 09/07/2024 1 1 Scheduling Instructions Please call [facility] and schedule pt with their wound care [...] and content) DATE CREATED AUTHOR 10/06/2018 [facility] DATE CREATED AUTHOR AUTHOR'S ORGANIZ ATION 10/09/2022 [facility] DATE CREATED AUTHOR AUTHOR'S ORGANIZ ATION 09/05/2023 [facility] DATE CREATED AUTHOR AUTHOR'S ORGANIZ ATION 01/25/2024 [facility] DATE CREATED AUTHOR AUTHOR'S ORGANIZ ATION 02/14/2024 [facility] DATE CREATED AUTHOR AUTHOR'S ORGANIZ ATION 03/13/2024 [facility] EPIC DATE CREATED AUTHOR AUTHOR'S ORGANIZ ATION 03/22/2024 [facility] Care Teams (unrecognized sec tion and content) Sales And Marketing Specialist Relationship Specialty Start Date End Date Brandon Mcfarlane MD [address] [place] [phone] PCP - General Family Medicine 06/26/23 Maira Rush NP [address] [place] [phone] Referring Physician Nurse Practitioner 12/17/22 Sales And Marketing Specialist Relationship Specialty Start Date End Date Brandon Mcfarlane MD [address] [place] [address] PCP - General Family Medicine 06/26/23 Maira Rush NP [address] [place] [phone] Referring Physician Nurse Practitioner 12/17/22 Sales And Marketing Specialist Relationship Specialty Start Date End Date Brandon Mcfarlane MD [address] [place] [phone] PCP - General Family Medicine 06/26/23 Maira Rush NP [address] [place] [phone] Referring Physician Nurse Practitioner 12/17/22 Sales And Marketing Specialist Relationship Specialty Start Date End Date Brandon Mcfarlane MD [address] [place] [phone] PCP - General Family Medicine 06/26/23 Maira Rush NP [address] [place] [phone] Referring Physician Nurse Practitioner 12/17/22 Sales And Marketing Specialist Relationship Specialty Start Date End Date Brandon Mcfarlane MD [address] [place] [phone] PCP - General Family Medicine 06/26/23 Maira Rush NP [address] [place] [phone] Referring Physician Nurse Practitioner 12/17/22 Sales And Marketing Specialist Relationship Specialty Start Date End Date Brandon Mcfarlane MD [address] [place] [phone] PCP - General Family Medicine 06/26/23 Maira Rush NP [address] [place] [phone] Referring Physician Nurse Practitioner 12/17/22 Sales And Marketing Specialist Relationship Specialty Start Date End Date Brandon Mcfarlane MD [address] [place] [phone] PCP - General Family Medicine 06/26/23 Maira Rush NP [address] [place] [phone] Referring Physician Nurse Practitioner 12/17/22 Sales And Marketing Specialist Relationship Specialty Start Date End Date Brandon Mcfarlane MD [address] [place] [phone] PCP - General Family Medicine 06/26/23 Maira Rush NP [address] [place] [phone] Referring Physician Nurse Practitioner 12/17/22 Sales And Marketing Specialist Relationship Specialty Start Date End Date Maira Rush, BARREL RACER-ASSOCIATE EDITOR PCP - General Nurse Practitioner 01/16/24 Reason for Visit (unrecogniz ed section and content) Reason Onset Date Comments Med Refill 03/16/2024 Reason Comments Wound Check Specialty Diagnoses / Procedures Referred By Contalbaro t Referred To Contact Wound Care Diagnoses Open wound Maira Rush, BARREL RACER-ASSOCIATE EDITOR [address] [place] [address] Phone: tel: fax: [facility] [address] [place] [address] Phone: tel: fax: Referral ID Status Reason Start Date Expiration Date Visits Requested Visits Authorized [id number] Pending Review Specialty Services Required 4 03/13/2025 [...] BE BASED ON THE PRIMARY CLINICAL RECORDS. [facility] [employer] [facility]. provides no warranty or guarantee of the accuracy or completeness of information in this document.
--- NOTE | 2024-04-10 07:58 | XR_ITS ---
The [address] [address] Patient Name: RODDY HORN MRN: [id number] date: 1960 Sex: F Assigned Patient Location: ER Current Patient Location: ER Accession/Order Number: [id number] Exam Date: 04/10/2024 08:33 Report Date: 04/10/2024 08:56 At the request of: SACHA MONTANO Procedure: XR chest 1V EXAMINATION: XR chest 1V HISTORY: SOB COMPARISON: XR chest 09/16/2023 FINDINGS: LUNGS: Mild haziness and stranding within left lung base. VASCULATURE: No increased pulmonary vasculature. PLEURA: No pneumothorax, effusion, or pleural thickening. CARDIAC: No cardiomegaly or cardiac silhouette abnormality. MEDIASTINUM: No visible mass or adenopathy. BONES: No fracture or visible bone lesion. OTHER: Negative. XR/XR chest 1V IMPRESSION: 1. Mild left basilar infiltrates versus atelectasis; new compared to prior study. Electronically authenticated by: ROBERT AZUL Date: 04/10/2024 08:56
--- NOTE | 2024-04-10 07:58 | ECG_ITS ---
The [facility] Test Date: 2024-04-10 Pat Name: RODDY HORN Department: Room: - Gender: Female Day Care Attendant: : 1960 Requested By: RAMESH WILD Order Number: [id number] Reading MD: TERI BLOCK Measurements Intervals Starr Rate: 67 P: 30 DE: 170 QRS: -27 QRSD: 80 T: 66 QT: 404 QTc: 419 Interpretive Statements 1100 Sinus rhythm 3433 Septal myocardial infarction, probably old 9150 abnormal ECG Compared to ECG 02/24/2024 13:39:34 Sinus bradycardia no longer present Left-axis deviation no longer present Myocardial infarct finding still present Electronically Signed On 04-11-2024 6:25:44 EST by TERI BLOCK
--- NOTE | 2024-04-10 07:59 | ED.GENADUL1 ---
HPI HPI - General Adult General Chief complaint: Shortness of Breath/Dyspnea Stated complaint: SHORTNESS OF BREATH/URTI COMPLAINTS Time Seen by Provider: 04/10/24 07:54 Source: patient Mode of arrival: walk-in Limitations: no limitations History of Present Illness HPI narrative: 63-year-old female presents to the emergency department for a several day history of cough and shortness of breath. She has been coughing up yellow phlegm and thinks that she has bronchitis. She has not had a fever or hemoptysis. Related Data Home Medications ?Medication ?Instructions ?Recorded ?Confirmed aspirin 81 mg tablet,delayed 81 mg PO DAILY 04/05/23 02/24/24 release budesonide-formoterol HFA 160 2 puff inhalation BID 04/05/23 02/24/24 mcg-4.5 mcg/actuation aerosol inhaler (Symbicort) calcium 500 mg (as 1 tab PO BID 04/05/23 01/03/24 carbonate)-vitamin D3 10 mcg (400 unit) tablet carvedilol 12.5 mg tablet 12.5 mg PO BID 04/05/23 02/24/24 empagliflozin 25 mg tablet 25 mg PO DAILY 04/05/23 02/24/24 (Jardiance) gabapentin 600 mg tablet 600 mg PO TID 04/05/23 02/24/24 insulin aspart U-100 100 unit/mL 1 sliding scale dose subcut 04/05/23 02/24/24 (3 mL) subcutaneous pen (Novolog TIDWMEAL FlexPen U-100 Insulin aspart) insulin glargine 100 unit/mL (3 60 unit subcut QPM 04/05/23 02/24/24 mL) subcutaneous pen (Lantus Solostar U-100 Insulin) losartan 100 mg tablet 100 mg PO DAILY 04/05/23 02/24/24 pantoprazole 40 mg tablet,delayed 40 mg PO DAILY 04/05/23 02/24/24 release potassium chloride 10 mEq 10 meq PO DAILY 04/05/23 02/24/24 capsule,extended release rivaroxaban 20 mg tablet (Xarelto) 20 mg PO DAILY 04/05/23 02/24/24 rosuvastatin 5 mg tablet 5 mg PO DAILY 04/05/23 02/24/24 spironolactone 25 mg tablet 25 mg PO BID 04/05/23 02/24/24 tiotropium bromide 2.5 2 puff inhalation DAILY 04/05/23 02/24/24 mcg/actuation mist for inhalation (Spiriva Respimat) furosemide 20 mg tablet 20 mg PO DAILY 01/03/24 02/24/24 paroxetine HCl 10 mg tablet 10 mg PO DAILY 02/24/24 02/24/24 Previous Rx's ?Medication ?Instructions ?Recorded albuterol sulfate 90 mcg/actuation 2 inh inhalation Q4H PRN shortness 06/25/23 aerosol inhaler of breath or wheezing #8.5 grams albuterol sulfate 2.5 mg/3 mL 2.5 mg (3 mL) inhalation Q6H PRN 09/16/23 (0.083 %) solution for nebulization shortness of breath or wheezing #90 mL meclizine 25 mg tablet 25 mg PO TID PRN dizziness #15 tabs 02/24/24 azithromycin 250 mg tablet See Rx Instructions PO .COMPLEX #6 04/10/24 (Zithromax Z-Eleazar) tabs benzonatate 100 mg capsule 100 mg PO TID PRN cough #20 caps 04/10/24 Allergies Allergy/AdvReac Type Severity Reaction Status Date / Time ciprofloxacin (From Cipro) AdvReac Intermediate Vomiting Verified 02/24/24 13:26 metronidazole (From Flagyl) AdvReac Intermediate Vomiting Verified 02/24/24 13:26 Penicillins AdvReac Intermediate Vomiting Verified 02/24/24 13:26 sulfamethoxazole (From AdvReac Intermediate Vomiting Verified 02/24/24 13:26 Bactrim) trimethoprim (From Bactrim) AdvReac Intermediate Vomiting Verified 02/24/24 13:26 Opioid HPI Opioid Management Most Recent Opioid Data: Last Pain Scale 5 01/06/24 21:59 01/06/24 Review of Systems ROS Narrative A ten point review of systems is negative except as noted above. [facility] Medical History (Updated 04/10/24 @ 09:13 by Luis Antonio Garcia MD) A-fib ?I48.91 - Unspecified atrial fibrillation (ICD-10) Hypertension ?I10 - Essential (primary) hypertension (ICD-10) Diabetes ?E11.9 - Type 2 diabetes mellitus without complications (ICD-10) Acute shoulder pain ?M25.519 - Pain in unspecified shoulder (ICD-10) Hyperlipidemia ?E78.5 - Hyperlipidemia, unspecified (ICD-10) Depression ?F32.A - Depression, unspecified (ICD-10) Chronic obstructive pulmonary disease ?J44.9 - Chronic obstructive pulmonary disease, unspecified (ICD-10) Surgical History (Updated 06/24/23 @ 12:13 by Aliyah Ruiz RN) History of appendectomy ?Z90.49 - Acquired absence of other specified parts of digestive tract (ICD-10) Hx of cholecystectomy ?Z90.49 - Acquired absence of other specified parts of digestive tract (ICD-10) H/O: hysterectomy ?Z90.710 - Acquired absence of both cervix and uterus (ICD-10) Family History (Updated 06/24/23 @ 12:13 by Aliyah Ruiz RN) Mother Family history of diabetes mellitus Grandfather Family history of diabetes mellitus Father Family history of stroke Social History Within the past year, how often did you have a drink containing alcohol: never Score interpretation: A score less than 3 is consistent with normal alcohol consumption. Smoking status: Current every day smoker Non-prescribed substance use: denies use Highest level of school completed/degree received: high school graduate Little interest or pleasure in doing things: not at all Feeling down, depressed, or hopeless: not at all Gender Identity: female Exam Narrative Exam Narrative: Nurses note and vital signs reviewed and patient is not hypoxic. General: The patient appears in no apparent distress. Patient is Laying on her side and is covered by blankets. Her voice is hoarse Skin: Warm, dry, no pallor noted. There is no rash noted. Head: Normocephalic, atraumatic Eye: Normal conjunctiva, no drainage Ears, Nose, Mouth, and Throat: oral mucosa is moist. Nares patent. Cardiovascular: Regular Rate and Rhythm Respiratory: Patient is in no distress, Bilateral rhonchi present Back: non-tender GI: Soft and nontender Musculoskeletal: The patient has no evidence of calf tenderness, no pitting edema, symmetrical pulses noted bilaterally Neurological: A&O, normal speech Psychiatric: Cooperative Constitutional Vital Signs, click to edit/add: Last Vital Signs Temp 97.6 F 04/10/24 07:40 Pulse 66 04/10/24 08:25 Resp 20 11/08/24 07:40 BP 122/73 04/10/24 07:40 Pulse Ox 99 04/10/24 08:25 O2 Del Method Room Air 04/10/24 08:25 Course Vital Signs Vital signs: Vital Signs Temperature 97.6 F 04/10/24 07:40 Pulse Rate 78 04/10/24 07:40 Respiratory Rate 20 04/10/24 07:40 Blood Pressure 122/73 04/10/24 07:40 Pulse Oximetry 98 04/10/24 07:40 Oxygen Delivery Method Room Air 04/10/24 07:40 Temperature 97.6 F 04/10/24 07:40 Pulse Rate 66 04/10/24 08:25 Respiratory Rate 20 04/10/24 07:40 Blood Pressure 122/73 04/10/24 07:40 Pulse Oximetry 99 04/10/24 08:25 Oxygen Delivery Method Room Air 04/10/24 08:25 Medical Decision Making MDM Narrative Medical decision making narrative: There is a questionable area of pneumonia. She is not tachycardic or hypoxic and does not require admission to the hospital at this point. She is prescribed Zithromax and Tessalon and she will follow-up with her PCP. Treatment diagnosis and follow-up were discussed with the patient. Differential Diagnosis Differential Diagnosis: Pneumonia, bronchitis, COVID, influenza Lab Data Lab results reviewed: Yes I reviewed the patient's lab results Labs: Lab Results 04/10/24 04/10/24 Range/Units 08:15 08:20 WBC 9.9 (4.0-11.0) 10^3/uL RBC 5.24 (4.20-5.40) 10^6/uL Hgb 16.5 H (12.0-16.0) g/dL Hct 49.7 H (36.0-48.0) % MCV 94.8 (81.0-99.0) fL MCH 31.5 (26.7-34.0) pg MCHC 33.2 (29.9-35.2) g/dL RDW 12.5 (11.0-15.0) % Plt Count 282 (150-450) 10^3/uL MPV 10.6 (9.5-13.5) fL Neut % (Auto) 64.4 (43.0-75.0) % Lymph % (Auto) 24.9 (20.5-60.0) % [place] % (Auto) 7.2 (1.7-12.0) % Eos % (Auto) 2.7 (0.9-7.0) % Baso % (Auto) 0.6 (0.2-2.0) % Neut # (Auto) 6.4 (1.4-6.5) 10^3/uL Lymph # (Auto) 2.5 (1.2-3.8) 10^3/uL [place] # (Auto) 0.7 (0.3-0.8) 10^3/uL Eos # (Auto) 0.3 (0.0-0.7) 10^3/uL Baso # (Auto) 0.1 (0.0-0.1) 10^3/uL Abs Immat Gran (auto) 0.02 (0.00-0.03) 10^3/uL Imm/Tot Granulo (auto) 0.2 (0.0-0.5) % Sodium 143 (136-145) mmol/L Potassium 4.3 (3.5-5.1) mmol/L Chloride 103 (98-107) mmol/L Carbon Dioxide 28.9 (21.0-32.0) mmol/L Anion Gap 15.4 BUN 14.0 (7.0-18.0) mg/dL Creatinine 0.66 (0.55-1.02) mg/dL Est GFR ( Amer) >60 (>=60 mL/min/1.73m^2) Est GFR (Non-Af Amer) >60 (>=60 mL/min/1.73m^2) BUN/Creatinine Ratio 21.2 Glucose 245 H (74-106) mg/dL Calcium 8.8 (8.5-10.1) mg/dL Influenza Type A Ag Negative Influenza Type B Ag Negative SARS-CoV-2 Ag (CV2AG) Negative (NEGATIVE) Imaging Data Chest x-ray: Radiologist's impression: ITS Impressions Chest X-Ray 04/10/24 07:58 IMPRESSION: 1. Mild left basilar infiltrates versus atelectasis; new compared to prior study. Electronically authenticated by: ROBERT AZUL Date: 04/10/2024 08:56 ECG Data Attestation: I personally reviewed and interpreted this ECG as follows: (EKG on my interpretation shows sinus rhythm with rate of 67 and no acute findings) Discharge Plan Discharge Chief Complaint: Shortness of Breath/Dyspnea Clinical Impression: Community acquired pneumonia Patient Disposition: Home, Self-Care Time of Disposition Decision: 09:13 Condition: Good Mode of Transportation: Private Vehicle Prescriptions / Home Meds: New azithromycin [Zithromax Z-Eleazar] 250 mg tablet See Rx Instructions .ROUTE .COMPLEX Qty: 6 0RF Rx Instructions: For 250 mg dose pack: take 500 mg today (day 1), then 250 mg for 4 days (days 2-5) benzonatate 100 mg capsule 100 mg PO TID PRN (Reason: cough) Qty: 20 0RF No Action albuterol sulfate 90 mcg/actuation HFA aerosol inhaler 2 inh inhalation Q4H PRN (Reason: shortness of breath or wheezing) Qty: 8.5 0RF albuterol sulfate 2.5 mg /3 mL (0.083 %) solution for nebulization 2.5 mg inhalation Q6H PRN (Reason: shortness of breath or wheezing) Qty: 90 0RF furosemide 20 mg tablet 20 mg PO DAILY aspirin 81 mg tablet,delayed release (DR/EC) 81 mg PO DAILY budesonide-formoterol [Symbicort] 160-4.5 mcg/actuation HFA aerosol inhaler 2 puff INHALATION BID calcium carbonate-vitamin D3 500 mg-10 mcg (400 unit) tablet 1 tab PO BID carvedilol 12.5 mg tablet 12.5 mg PO BID Jardiance 25 mg tablet 25 mg PO DAILY gabapentin 600 mg tablet 600 mg PO TID insulin aspart U-100 [Novolog FlexPen U-100 Insulin] 100 unit/mL (3 mL) insulin pen 1 sliding scale dose SUBCUT TIDWMEAL insulin glargine [Lantus Solostar U-100 Insulin] 100 unit/mL (3 mL) insulin pen 60 unit SUBCUT QPM losartan 100 mg tablet 100 mg PO DAILY pantoprazole 40 mg tablet,delayed release (DR/EC) 40 mg PO DAILY potassium chloride 10 mEq capsule, extended release 10 meq PO DAILY Xarelto 20 mg tablet 20 mg PO DAILY rosuvastatin 5 mg tablet 5 mg PO DAILY spironolactone 25 mg tablet 25 mg PO BID Spiriva Respimat 2.5 mcg/actuation mist 2 puff INHALATION DAILY paroxetine HCl 10 mg tablet 10 mg PO DAILY meclizine 25 mg tablet 25 mg PO TID PRN (Reason: dizziness) Qty: 15 0RF Print Language: Mongolian Instructions: Community Acquired Pneumonia (ED) Referrals: Maiar Rush LICENSED DIRECT ENTRY MIDWIFE [Primary Care Provider] - 1 week
[2024-04-10] MEDS: METHYLPREDNISOLONE SOD SUCC PF 125 MG/2 ML VIAL IVP (08:22)
[2024-04-10] MEDS: ALBUTEROL SULFATE 2.5 MG/3 ML VIAL NEB IH (08:25)
[2024-04-10 08:34] LABS: Basophils Absolute Auto 0.1 10^3/uL (0.0-0.1); Basophils Percent Auto 0.6 % (0.2-2.0); Eosinophils Absolute Auto 0.3 10^3/uL (0.0-0.7); Eosinophils Percent Auto 2.7 % (0.9-7.0); Hematocrit 49.7 % (36.0-48.0); Hemoglobin 16.5 g/dL (12.0-16.0); Immature Granulocytes Abs Auto 0.02 10^3/uL (0.00-0.03); Immature Granulocytes Pct Auto 0.2 % (0.0-0.5); Lymphocytes Absolute Auto 2.5 10^3/uL (1.2-3.8); Lymphocytes Percent Auto 24.9 % (20.5-60.0); Mean Corpuscular HGB Conc 33.2 g/dL (29.9-35.2); Mean Corpuscular Hemoglobin 31.5 pg (26.7-34.0); Mean Corpuscular Volume 94.8 fL (81.0-99.0); Mean Platelet Volume 10.6 fL (9.5-13.5); Monocytes Absolute Auto 0.7 10^3/uL (0.3-0.8); Monocytes Percent Auto 7.2 % (1.7-12.0); Neutrophils Absolute Auto 6.4 10^3/uL (1.4-6.5); Neutrophils Percent Auto 64.4 % (43.0-75.0); Platelet Count 282 10^3/uL (150-450); Red Blood Count 5.24 10^6/uL (4.20-5.40); Red Cell Distribution Width 12.5 % (11.0-15.0); White Blood Count 9.9 10^3/uL (4.0-11.0)
[2024-04-10 08:47] LABS: Anion Gap 15.4; BUN Creatinine Ratio 21.2; Calcium 8.8 mg/dL (8.5-10.1); Carbon Dioxide 28.9 mmol/L (21.0-32.0); Chloride 103 mmol/L (98-107); Estimated GFR (African America >60 (>=60 mL/min/1.73m^2); Estimated GFR (Non-African Ame >60 (>=60 mL/min/1.73m^2); Glucose 245 mg/dL (74-106); Sodium 143 mmol/L (136-145)
[2024-04-10 08:48] LABS: Potassium 4.3 mmol/L (3.5-5.1)
[2024-04-10 08:48] LABS: Influenza Virus A Antigen Negative; Influenza Virus B Antigen Negative; Internal Control Within Normal Limits
[2024-04-10 08:59] LABS: Internal Control Within Normal Limits; SARS-CoV-2 Ag NEGATIVE (NEGATIVE)
== END 2024-04-10 09:27 | disposition home or self-care (01) ==
PROVIDERS: Emergency Provider Emergency Medicine; PCP Nurse Practitioner
DX: J18.9 Pneumonia, unspecified organism (principal); F17.200 Nicotine dependence, unspecified, uncomplicated; Z20.822 Contact with and (suspected) exposure to COVID-19
CPT/HCPCS: 36415; 71045; 80048; 85025; 87804; 87811; 93005; 94640; 96374; 99285; J2919

== ENCOUNTER 2024-05-11 14:01 | Emergency (ER) | payer OTHER, SELFPAY ==
[2024-05-11 14:09] VITALS: BP 166/88; PULSE 76; TEMP 36.4; O2SAT 96; BMI 33.1
--- NOTE | 2024-05-11 14:17 | ED_ITS ---
<Statement entered by Bal Do MD - 05/12/24 12:28> Chart was sent to my inbox for administrative and group management purposes. I was the attending physicians working during the patients hospital course. The patient was seen and managed independently by the MLP. I did not personally see or evaluate this patient, nor was I involved in the patient medical decision making process or plans of care. Pt was dispositioned by the MLP with complete independence. I was available for consultation should the MLP request during this patients ED stay. This documentation has been reviewed and approved. HPI HPI - Extremity Injury (Upper) General Chief Complaint: Extremity Injury, Upper Stated Complaint: UPPER EXTREMITY PAIN Time Seen by Provider: 05/11/24 14:02 Source: patient Mode of arrival: walk-in Limitations: no limitations History of Present Illness HPI narrative: Patient is a 63-year-old female who presents to the emergency department for pain and swelling over the PIP joint of the right middle finger. She is right- hand dominant. She states symptoms have been present for 2 to 3 days. She has not noticed any redness, open wounds or drainage. She denies any mechanism of injury or trauma. She reports pain is worse with movement to flexion and extension at the right middle finger. Related Data Home Medications ?Medication ?Instructions ?Recorded ?Confirmed aspirin 81 mg tablet,delayed 81 mg PO DAILY 04/05/23 02/24/24 release budesonide-formoterol HFA 160 2 puff inhalation BID 04/05/23 02/24/24 mcg-4.5 mcg/actuation aerosol inhaler (Symbicort) calcium 500 mg (as 1 tab PO BID 04/05/23 01/03/24 carbonate)-vitamin D3 10 mcg (400 unit) tablet carvedilol 12.5 mg tablet 12.5 mg PO BID 04/05/23 02/24/24 empagliflozin 25 mg tablet 25 mg PO DAILY 04/05/23 02/24/24 (Jardiance) gabapentin 600 mg tablet 600 mg PO TID 04/05/23 02/24/24 insulin aspart U-100 100 unit/mL 1 sliding scale dose subcut 04/05/23 02/24/24 (3 mL) subcutaneous pen (Novolog TIDWMEAL FlexPen U-100 Insulin aspart) insulin glargine 100 unit/mL (3 60 unit subcut QPM 04/05/23 02/24/24 mL) subcutaneous pen (Lantus Solostar U-100 Insulin) losartan 100 mg tablet 100 mg PO DAILY 04/05/23 02/24/24 pantoprazole 40 mg tablet,delayed 40 mg PO DAILY 04/05/23 02/24/24 release potassium chloride 10 mEq 10 meq PO DAILY 04/05/23 02/24/24 capsule,extended release rivaroxaban 20 mg tablet (Xarelto) 20 mg PO DAILY 04/05/23 02/24/24 rosuvastatin 5 mg tablet 5 mg PO DAILY 04/05/23 02/24/24 spironolactone 25 mg tablet 25 mg PO BID 04/05/23 02/24/24 tiotropium bromide 2.5 2 puff inhalation DAILY 04/05/23 02/24/24 mcg/actuation mist for inhalation (Spiriva Respimat) furosemide 20 mg tablet 20 mg PO DAILY 01/03/24 02/24/24 paroxetine HCl 10 mg tablet 10 mg PO DAILY 02/24/24 02/24/24 Previous Rx's ?Medication ?Instructions ?Recorded albuterol sulfate 90 mcg/actuation 2 inh inhalation Q4H PRN shortness 06/25/23 aerosol inhaler of breath or wheezing #8.5 grams albuterol sulfate 2.5 mg/3 mL 2.5 mg (3 mL) inhalation Q6H PRN 09/16/23 (0.083 %) solution for nebulization shortness of breath or wheezing #90 mL meclizine 25 mg tablet 25 mg PO TID PRN dizziness #15 tabs 02/24/24 azithromycin 250 mg tablet See Rx Instructions PO .COMPLEX #6 04/10/24 (Zithromax Z-Eleazar) tabs benzonatate 100 mg capsule 100 mg PO TID PRN cough #20 caps 04/10/24 Allergies Allergy/AdvReac Type Severity Reaction Status Date / Time ciprofloxacin (From Cipro) AdvReac Intermediate Vomiting Verified 02/24/24 13:26 metronidazole (From Flagyl) AdvReac Intermediate Vomiting Verified 02/24/24 13:26 Penicillins AdvReac Intermediate Vomiting Verified 02/24/24 13:26 sulfamethoxazole (From AdvReac Intermediate Vomiting Verified 02/24/24 13:26 Bactrim) trimethoprim (From Bactrim) AdvReac Intermediate Vomiting Verified 02/24/24 13:26 Opioid HPI Opioid Management Most Recent Pain and Opioid Data: Last Pain Scale 5 01/06/24 21:59 01/06/24 Review of Systems ROS Constitutional Denies: fever or chills Ears, nose, mouth, and throat Denies: throat pain or nasal congestion Cardiovascular Denies: chest pain Respiratory Denies: shortness of breath or cough Gastrointestinal Denies: nausea or vomiting Musculoskeletal Reports: extremity pain; Denies: back pain or neck pain Integumentary/Breast Denies: rash Neurological Denies: numbness in extremities or weakness in extremities Hematologic/Lymphatic Denies: easy bruising or easy bleeding [facility] Medical History (Updated 05/11/24 @ 15:17 by KIAN Dumont) A-fib ?I48.91 - Unspecified atrial fibrillation (ICD-10) Hypertension ?I10 - Essential (primary) hypertension (ICD-10) Diabetes ?E11.9 - Type 2 diabetes mellitus without complications (ICD-10) Acute shoulder pain ?M25.519 - Pain in unspecified shoulder (ICD-10) Hyperlipidemia ?E78.5 - Hyperlipidemia, unspecified (ICD-10) Depression ?F32.A - Depression, unspecified (ICD-10) Chronic obstructive pulmonary disease ?J44.9 - Chronic obstructive pulmonary disease, unspecified (ICD-10) Surgical History (Updated 06/24/23 @ 12:13 by Aliyah Ruiz RN) History of appendectomy ?Z90.49 - Acquired absence of other specified parts of digestive tract (ICD- 10) Hx of cholecystectomy ?Z90.49 - Acquired absence of other specified parts of digestive tract (ICD- 10) H/O: hysterectomy ?Z90.710 - Acquired absence of both cervix and uterus (ICD-10) Family History (Updated 06/24/23 @ 12:13 by Aliyah Ruiz RN) Mother Family history of diabetes mellitus Grandfather Family history of diabetes mellitus Father Family history of stroke Social History Within the past year, how often did you have a drink containing alcohol: never Score interpretation: A score less than 3 is consistent with normal alcohol consumption. Smoking status: Current every day smoker Non-prescribed substance use: denies use Highest level of school completed/degree received: high school graduate Little interest or pleasure in doing things: not at all Feeling down, depressed, or hopeless: not at all Gender Identity: female Exam Narrative Exam Narrative: Gen.: Awake, alert, in no distress Head: Normocephalic, atraumatic ENT: Moist mucous membranes Respiratory: No respiratory distress Extremities: Normal flexion and extension at the PIP and DIP joints of the right middle finger with mild swelling noted diffusely of the joint at the PIP joint compared to the left hand. No erythema, fluctuance or warmth. Diffusely mildly tender to palpation. No evidence of tendon deficit. No ecchymosis or obvious deformity Psych: Normal mood and affect Neuro: No focal neuro deficit Skin: Warm, dry, intact Constitutional Vital Signs, click to edit/add: Last Vital Signs Temp 97.5 F L 05/11/24 14:09 Pulse 76 05/11/24 14:09 Resp 18 05/11/24 14:09 BP 166/88 H 05/11/24 14:09 Pulse Ox 96 05/11/24 14:09 O2 Del Method Room Air 05/11/24 14:09 Course Vital Signs Vital signs: Vital Signs Temperature 97.5 F L 05/11/24 14:09 Pulse Rate 76 05/11/24 14:09 Respiratory Rate 18 05/11/24 14:09 Blood Pressure 166/88 H 05/11/24 14:09 Pulse Oximetry 96 05/11/24 14:09 Oxygen Delivery Method Room Air 05/11/24 14:09 Temperature 97.5 F L 05/11/24 14:09 Pulse Rate 76 05/11/24 14:09 Respiratory Rate 18 05/11/24 14:09 Blood Pressure 166/88 H 05/11/24 14:09 Pulse Oximetry 96 05/11/24 14:09 Oxygen Delivery Method Room Air 05/11/24 14:09 MDM - Extremity Injury (Upper) MDM Narrative Medical decision making narrative: Exam is benign, consistent with musculoskeletal finger pain at x-ray show mild to moderate degenerative joint disease. Patient placed in finger splint and remains neurovascularly intact. Splint for 3 to 5 days. Rest, ice, elevate. Follow-up with PCP and return to the ER if symptoms change or worsen SUPERVISED APC VISIT, PHYSICIAN ATTESTATION: Based on the medical record the care appears appropriate. ? Medical Records Attestation: I reviewed the patient's medical records. Imaging Data XR finger: Attestation: I have reviewed the pertinent imaging results. Radiologist's impression: ITS Impressions Finger X-Ray 05/11/24 14:17 IMPRESSION: 1. Mild-moderate degenerative joint disease. 2. No convincing acute bone abnormality. Electronically authenticated by: ROBERT AZUL Date: 05/11/2024 15:08 Discharge Plan Discharge Chief Complaint: Extremity Injury, Upper Clinical Impression: Finger pain, right Patient Disposition: Home, Self-Care Time of Disposition Decision: 15:17 Condition: Good Prescriptions / Home Meds: No Action albuterol sulfate 90 mcg/actuation HFA aerosol inhaler 2 inh inhalation Q4H PRN (Reason: shortness of breath or wheezing) Qty: 8.5 0RF albuterol sulfate 2.5 mg /3 mL (0.083 %) solution for nebulization 2.5 mg inhalation Q6H PRN (Reason: shortness of breath or wheezing) Qty: 90 0RF furosemide 20 mg tablet 20 mg PO DAILY aspirin 81 mg tablet,delayed release (DR/EC) 81 mg PO DAILY budesonide-formoterol [Symbicort] 160-4.5 mcg/actuation HFA aerosol inhaler 2 puff INHALATION BID calcium carbonate-vitamin D3 500 mg-10 mcg (400 unit) tablet 1 tab PO BID carvedilol 12.5 mg tablet 12.5 mg PO BID Jardiance 25 mg tablet 25 mg PO DAILY gabapentin 600 mg tablet 600 mg PO TID insulin aspart U-100 [Novolog FlexPen U-100 Insulin] 100 unit/mL (3 mL) insulin pen 1 sliding scale dose SUBCUT TIDWMEAL insulin glargine [Lantus Solostar U-100 Insulin] 100 unit/mL (3 mL) insulin pen 60 unit SUBCUT QPM losartan 100 mg tablet 100 mg PO DAILY pantoprazole 40 mg tablet,delayed release (DR/EC) 40 mg PO DAILY potassium chloride 10 mEq capsule, extended release 10 meq PO DAILY Xarelto 20 mg tablet 20 mg PO DAILY rosuvastatin 5 mg tablet 5 mg PO DAILY spironolactone 25 mg tablet 25 mg PO BID Spiriva Respimat 2.5 mcg/actuation mist 2 puff INHALATION DAILY paroxetine HCl 10 mg tablet 10 mg PO DAILY meclizine 25 mg tablet 25 mg PO TID PRN (Reason: dizziness) Qty: 15 0RF azithromycin [Zithromax Z-Eleazar] 250 mg tablet See Rx Instructions .ROUTE .COMPLEX Qty: 6 0RF Rx Instructions: For 250 mg dose pack: take 500 mg today (day 1), then 250 mg for 4 days (days 2-5) benzonatate 100 mg capsule 100 mg PO TID PRN (Reason: cough) Qty: 20 0RF Print Language: [place] Instructions: Arthralgia (ED) Referrals: Maira Rush MINE INSPECTOR [Primary Care Provider] - 1 week
--- NOTE | 2024-05-11 14:17 | XR_ITS ---
The [address] [address] Patient Name: RODDY HORN MRN: [id number] date: 1960 Sex: F Assigned Patient Location: ER Current Patient Location: Accession/Order Number: [id number] Exam Date: 05/11/2024 14:21 Report Date: 05/11/2024 15:08 At the request of: CHASE HUNT Procedure: XR finger RT min 2V PROCEDURE: XR finger RT min 2V HISTORY: finger pain ; pain of third digit of right hand; no known injury COMPARISON: None. FINDINGS: BONES:Mild degenerative changes of the interphalangeal joints. No fracture or dislocation. SOFT TISSUES:Soft tissue calcifications suspected to be sequela of remote injury. EFFUSION:None visible. OTHER: Negative. XR/XR finger RT min 2V IMPRESSION: 1. Mild-moderate degenerative joint disease. 2. No convincing acute bone abnormality. Electronically authenticated by: ROBERT AZUL Date: 05/11/2024 15:08
== END 2024-05-11 15:23 | disposition home or self-care (01) ==
PROVIDERS: Emergency Provider Emergency Medicine; PCP Nurse Practitioner
DX: M79.644 Pain in right finger(s) (principal); M19.041 Primary osteoarthritis, right hand; Z90.49 Acquired absence of other specified parts of digestive tract; Z90.710 Acquired absence of both cervix and uterus; F17.200 Nicotine dependence, unspecified, uncomplicated
CPT/HCPCS: 73140; 99283

== ENCOUNTER 2024-05-25 08:43 | Outpatient (OUT) | payer OTHER, SELFPAY ==
--- NOTE | 2024-05-25 09:16 | CT_ITS ---
The [address] [address] Patient Name: RODDY HORN MRN: [id number] date: 1960 Sex: F Assigned Patient Location: LAB Current Patient Location: LAB Accession/Order Number: [id number] Exam Date: 05/25/2024 09:40 Report Date: 05/25/2024 23:33 At the request of: RAMESH WILD Procedure: CT chest w con EXAMINATION: CT chest w con HISTORY: Tobacco User, Lung Nodule, Lymphadenopathy ; follow-up lung nodules COMPARISON: CTA chest 01/03/2024 TECHNIQUE: Multi-planar CT images were obtained without and/or with IV contrast as indicated by examination type. Axial, Coronal, and Sagittal images. Dose reduction techniques were achieved by using automated exposure control and/or adjustment of mA and/or kV according to patient size and/or use of iterative reconstruction technique. FINDINGS: LUNGS: Several small calcified and noncalcified nodules scattered within the lungs. Single larger round nodule within posterior right lung base, 8 mm. No acute infiltrates. Minimal emphysematous changes. PLEURA: No mass, effusion, or pneumothorax. VASCULATURE: No abnormality. ISAAC: No mass or adenopathy. MEDIASTINUM: No mass or adenopathy. CARDIAC: No enlargement or pericardial thickening.. Coronary artery calcifications: AORTA: No aneurysm or dissection. CHEST WALL: No mass or axillary adenopathy. BONES: No bone lesion or fracture. LIMITED ABDOMEN: 2.2 cm heterogeneously enhancing right adrenal mass. Limited images of the upper abdomen. OTHER: Negative. CT/CT chest w con IMPRESSION: 1. Nonspecific, but not overtly suspicious, 8 mm nodule within posterior right lung base. This is better seen on today's study with interval clearing of infiltrates. I suspect this has remained stable, however, follow-up CT chest in 6 months to document continued stability is recommended. 2. Scattered small calcified and noncalcified nodules bilaterally, most suggestive of granulomas. 3. Right adrenal mass 2.[address] in size[address] CT abdomen with adrenal gland protocol for further evaluation. Alternatively MRI abdomen could be performed. Electronically authenticated by: ROBERT AZUL Date: 05/25/2024 23:33
== END 2024-05-25 08:44 | disposition home or self-care (01) ==
LOC: LAB 08:43
PROVIDERS: PCP Nurse Practitioner; Visit Provider Nurse Practitioner
DX: R91.8 Other nonspecific abnormal finding of lung field (principal); Z72.0 Tobacco use; J44.9 Chronic obstructive pulmonary disease, unspecified; R59.1 Generalized enlarged lymph nodes; E11.65 Type 2 diabetes mellitus with hyperglycemia; Z79.4 Long term (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
CPT/HCPCS: 36415; 71260; 80061; 80069; 82043; 82306; 82570; 84681; Q9967

== ENCOUNTER 2024-05-25 08:46 | Outpatient (OUT) | payer OTHER, SELFPAY ==
[2024-05-25 09:28] LABS: Albumin Level 3.3 g/dL (3.4-5.0); Anion Gap 9.2; BUN Creatinine Ratio 17.2; Calcium 8.7 mg/dL (8.5-10.1); Carbon Dioxide 31.7 mmol/L (21.0-32.0); Chloride 101 mmol/L (98-107); Estimated GFR (African America >60 (>=60 mL/min/1.73m^2); Estimated GFR (Non-African Ame >60 (>=60 mL/min/1.73m^2); Glucose 275 mg/dL (74-106); Phosphorus 4.3 mg/dL (2.6-4.7); Potassium 3.9 mmol/L (3.5-5.1); Sodium 138 mmol/L (136-145)
[2024-05-25 09:59] LABS: Creatinine Urine Random 16.97 mg/dL (20.00-300.00)
[2024-05-25 10:01] LABS: Microalbum Creatinine Ratio Ur 76.6 mg/g (0.0-29.9); Microalbumin Urine Random <1.3 mg/dL (<=30.0)
[2024-05-25 10:02] LABS: Chol HDL Ratio 2.4; Cholesterol 111 mg/dL (<=200); HDL Cholesterol 47 mg/dL (40-60); Triglycerides 75 mg/dL (<=150)
[2024-05-26 08:09] LABS: C-Peptide, Serum 2.7 ng/mL (1.1-4.4)
== END 2024-05-25 08:47 | disposition home or self-care (01) ==
LOC: LAB 08:48
PROVIDERS: PCP Nurse Practitioner; Visit Provider Internal Medicine
DX: E11.65 Type 2 diabetes mellitus with hyperglycemia (principal); Z79.4 Long term (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
CPT/HCPCS: 36415; 80061; 80069; 82043; 82306; 82570; 84681

== ENCOUNTER 2024-05-28 12:21 | Emergency (ER) | payer OTHER, SELFPAY ==
--- OUTSIDE RECORDS SUMMARY | 2024-05-28 12:28 | XMS_ITS | CCD ---
Author Organization [facility] Care Team Providers Care Professor Of Economics Name Role Phone PHYSICIAN, DEFAULT Admitting Unavailable PHYSICIAN, DEFAULT Attending Unavailable AICHHOLZ, MAIRA Primary Care Unavailable PHYSICIAN, DEFAULT Admitting Unavailable PHYSICIAN, DEFAULT Attending Unavailable AICHHOLZ, MAIRA Primary Care Unavailable AICHHOLZ, CNC MACHINE OPERATOR MAIRA Primary Care Unavailable SACHA MONTANO Admitting Unavailable MARILEE .KIAN Consulting Unavailabl e SACHA MONTANO Attending Unavailable Robert Hart Consulting Unavailable HANNAH TOVAR Admitting Unavailable AICHHOLZ, CNC MACHINE OPERATOR MAIRA Primary Care Unavailable HANNAH TOVAR Attending Unavailable HANNAH TOVAR Consulting Unavailable AICHHOLZ, CNC MACHINE OPERATOR MAIRA Consulting Unavailable AICHHOLZ, CNC MACHINE OPERATOR MAIRA Primary Care Unavailable AICHHOLZ, CNC MACHINE OPERATOR MAIRA Admitting Unavailable AICHHOLZ, CNC MACHINE OPERATOR MAIRA Attending Unavailable AICHHOLZ, CNC MACHINE OPERATOR MAIRA Attending Unavailable AICHHOLZ, CNC MACHINE OPERATOR MAIRA Consulting Unavailable AICHHOLZ, CNC MACHINE OPERATOR MAIRA Primary Care Unavailable AICHHOLZ, CNC MACHINE OPERATOR MAIRA Admitting Unavailable Robert Hart Consulting Unavailable AICHHOLZ, CNC MACHINE OPERATOR MAIRA Attending Unavailable AICHHOLZ, CNC MACHINE OPERATOR MAIRA Consulting Unavailable AICHHOLZ, CNC MACHINE OPERATOR MAIRA Primary Care Unavailable AICHHOLZ, CNC MACHINE OPERATOR MAIRA Admitting Unavailable DR CORINE ANGELA V Consulting Unavailable AICHHOLZ, CNC MACHINE OPERATOR MAIRA Primary Care Unavailable AICHHOLZ, CNC MACHINE OPERATOR MAIRA Admitting Unavailable AICHHOLZ, CNC MACHINE OPERATOR MAIRA Attending Unavailable AICHHOLZ, CNC MACHINE OPERATOR MAIRA Consulting Unavailable DR TERI MAURO Admitting Unavailable AICHHOLZ, CNC MACHINE OPERATOR MAIRA Primary Care Unavailable DR TERI MAURO Attending Unavailable DR TERI MAURO Consulting Unavailable DR CORINE ANGELA V Consulting Unavailable DR BRANDON MCFARLANE Consulting Unavailable DR NEHA GATICA Consulting Unavailable YECENIA MONTERO Consulting Unavailable Aichholz DIAGNOSTIC TECHNICIAN, Maira Unavailable Brandon Mcfarlane MD Primary Care Provider LORENZO ACE Attending Unavailable CHAPITO DAMICO Referring Unavailable AICHHOLZ, MAIRA J Primary Care Unavailable Aichholz DIAGNOSTIC TECHNICIAN, Maira Unavailable Aichholz RODBUSTER-CNC MACHINE OPERATOR, Maira J Primary Care Provider AICHHOLZ, MAIRA J Primary Care Unavailable VIKTORIYA ADAM Attending Unavailable JEFFERYROSSHAMFABY Estrada Admitting Unavailable TERRY, CHIKI Attending Unavailable CHIKI TERRY Referring Unavailable AICHHOLZ, MAIRA J Primary Care Unavailable YVES GIL M Attending Unavailable JEFFERY, YVES Estrada Referring Unavailable AICHHOLZ, MAIRA J Primary Care Unavailable MALIK RAMOS Attending Unavailable AICHHOLZ, MAIRA J Referring Unavailable AICHHOLZ, MAIRA J Primary Care Unavailable AICHHOLZ, MAIRA Attending Unavailable AICHHOLZ, MAIRA Attending Unavailable AICHHOLZ, MAIRA Attending Unavailable KALINA AHMAD F Attending Unavailable KALINA, AHMAD F Referring Unavailable AICHHOLZ, MAIRA Attending Unavailable AICHHOLZ, MAIRA Attending Unavailable AICHHOLZ, MAIRA Attending Unavailable AICHHOLZ, MAIRA Attending Unavailable AICHHOLZ, MAIRA Attending Unavailable AICHHOLZ, MAIRA Attending Unavailable Allergies Allergy Classification Reported Allergen(s) Allergy Type Date of Onset Reaction(s) Facility (2 sources) Ciprofloxacin Drug Allergy 10-11-19 12 [facility] (2 sources) metroNIDAZOLE Drug Allergy 10-11-19 12 [facility] (6 sources) Penicillins; Translations: [PENICILLINS] Drug allergy (disorder) 10-11-19 12 [facility] (2 sources) Sulfamethoxazole / Trimethoprim Drug Allergy 10-11-19 12 [facility] (20 sources) Ciprofloxacin; Translations: [CIPROFLOXACIN] Drug Allergy 05-21-20 14 GI intolerance, Other (See Comments) [facility] (20 sources) metroNIDAZOLE; Translations: [METRONIDAZOLE] Drug Allergy 05-21-20 14 GI intolerance, Other (See Comments) [facility] (20 sources) Penicillins Drug Allergy 06-29-19 24 GI intolerance [facility] (20 sources) Sulfamethoxazole Allergy to substance 06-29-19 24 GI intolerance [facility] (20 sources) Trimethoprim Drug Allergy 06-29-19 24 GI intolerance [facility] (5 sources) Sulfamethoxazole / Trimethoprim; Translations: [SULFAMETHOXAZOLE-T RIMETHOPRIM] Drug Allergy 05-21-20 14 Other (See Comments) [facility] (1 source) Penicillins Propensity to adverse reactions to drug 05-21-20 14 Other (See Comments) [facility] Medications Current Medications Medication Drug Class(es) Dates Sig (Normalized) Sig (Original) albuterol 0.83 mg/ml inhalation solution (20 sources) beta2-Adrenergic Agonist Start: 09-16-2023 End: 05-22-2024 albuterol (2.5 MG/3ML) 0.083% nebulizer solution Indications: COPD mixed type (CMS/HCC) Take 3 mL (2.5 mg) by nebulization every 6 (six) hours if needed for wheezing or shortness of breath 360 mL 1 04/22/2024 Active aspirin 81 mg delayed release oral tablet (20 sources) Platelet Aggregation Inhibitor, Nonsteroidal Anti-inflammatory Drug Start: 01-21-2024 End: 07-21-2024 take 1 tablet by mouth once daily aspirin (Aspirin Low Dose) 81 MG EC tablet Indications: Type 2 diabetes mellitus with diabetic neuropathy, with long-term current use of insulin (CMS/HCC) Take 1 tablet (81 mg) by mouth Daily 90 tablet 3 04/22/2024 07/21/2024 Active 60 actuat budesonide 0.16 mg/actuat / formoterol fumarate 0.0045 mg/actuat metered dose inhaler (20 sources) Corticosteroid, beta2-Adrenergic Agonist Start: 11-06-2023 End: 03-18-2024 take 2 puff(s) by inhalation in the morning budesonide-formote rol (Symbicort) 160-4.5 MCG/ACT inhaler Indications: COPD mixed type (CMS/HCC) Inhale 2 puffs in the morning and 2 puffs before bedtime. Rinse mouth after use. 10.2 g 5 02/17/2024 Active Start: 05-30-2023 take 2 puff(s) by [facility] twice daily Symbicort 160-4.5 MCG/ACT inhaler Indications: COPD mixed type (CMS/HCC) INHALE 2 PUFFS BY MOUTH TWICE DAILY *RINSE MOUTH AFTER USE* 10.2 g 10 05/30/2023 Active calcium carbonate 1250 mg / cholecalciferol 125 unt oral tablet (20 sources) Vitamin D Start: 11-13-2023 take 1 [...] meals. Active carvedilol 12.5 mg oral tablet (20 sources) alpha-Adrenergic Dania, beta-Adrenergic Dania Start: 11-03-2022 take 1 tablet by mouth in the morning carvedilol (Coreg) 12.5 MG tablet Take 1 tablet by mouth in the morning and 1 tablet in the evening. Take with meals. 06/24/2023 Active cholecalciferol 0.05 mg oral tablet (20 sources) Vitamin D Start: 04-22-2024 End: 05-22-2024 cholecalciferol (Vitamin D-3) 50 MCG (2000 UT) tablet Take by mouth Daily 05/04/2024 Active Start: 01-03-2024 End: 04-22-2024 take 1 tablet by mouth once daily cholecalciferol (Vitamin D-3) 50 MCG (2000 UT) tablet Take 2,000 Units by mouth Daily 01/03/2024 04/22/2024 Discontinued (Reorder) take 1 tablet by prakash th in the morning cholecalciferol, vitamin D3, 2,000 units tablet Take 1 tablet (2,000 Units total) by mouth in the morning. Active Continuous Glucose Service Center Supervisor (FreeStyle Julisa 2 [place]) device (20 sources) Start: 04-29-2024 Continuous Glu cose Service Center Supervisor (FreeStyle Julisa 2 [place]) device Indications: Type 2 diabetes mellitus with hyperglycemia, with long-term current use of insulin (CMS/HCC) USE DIRECTED 1 each 04/29/2024 Active Start: 04-27-2024 End: 04-27-2025 Continuous Glucose Service Center Supervisor (FreeStyle Julisa 2 [place]) device Indications: Type 2 diabetes mellitus with hyperglycemia, with long-term current use of insulin ([facility]) 1 kit every 14 (fourteen) days 1 each 1 04/27/2024 04/27/2025 Active Start: 01-26-2024 End: 05-06-2024 Continuous Glucose Service Center Supervisor (FreeStyle Julisa 2 [place]) device 01/26/2024 05/06/2024 Discontinued (Therapy completed) Start: 01-26-2024 Continuous Glu cose Service Center Supervisor (FreeStyle Julisa 2 [place]) device 01/26/2024 Active Continuous Glucose Sensor (FreeStyle Julisa 2 Sensor) [facility] (20 sources) Start: 04-22-2024 Continuous Glu cose Sensor (FreeStyle Julisa 2 Sensor) [facility] Indications: Type 2 diabetes mellitus with hyperglycemia, with long-term current use of insulin ([facility]) 1 kit every 14 (fourteen) days 6 each 1 04/22/2024 Active Start: 02-07-2024 End: 05-06-2024 Continuous Glucose Sensor (F reeStyle Julisa 2 Sensor) [facility] 02/07/2024 05/06/2024 Discontinued (Therapy completed) Start: 02-07-2024 Continuous Glu cose Sensor (FreeStyle Julisa 2 Sensor) [facility] 02/07/2024 Active empagliflozin 25 mg oral tablet (20 sources) Sodium-Glucose Cotransporter 2 Inhibitor Start: 11-06-2022 End: 10-18-2024 take 1 tablet by mouth once daily empagliflozin (Jardiance) 25 MG Indications: Type 2 diabetes mellitus with diabetic neuropathy, with long-term current use of insulin ([facility]) Take 1 tablet (25 mg) by mouth Daily 90 tablet 1 01/21/2024 Active furosemide 20 mg oral tablet (20 sources) Loop Diuretic Start: 05-04-2024 take 1 tablet by mouth in the morning furosemide (Lasix) 20 MG tablet Take 20 mg by mouth in the morning. 05/04/2024 Active Start: 10-24-2022 End: 04-22-2024 take 1 tablet by mouth in the morning furosemide (Lasix) 20 MG tablet Take 1 tablet by mouth in the morning. 06/24/2023 Active gabapentin 600 mg oral tablet (20 sources) Anti-epileptic Agent Start: 10-24-2022 End: 07-21-2024 take 1 tablet by mouth in the [...] (600 mg) before bedtime. 270 tablet 1 04/22/2024 07/21/2024 Active 3 ml insulin aspart, human 100 unt/ml pen injector (20 sources) Insulin Analog Start: 05-22-2024 inject 1 [IU] by subcutaneous injection once daily NovoLOG FLEXPEN 100 UNIT/ML pen Indications: Type 2 diabetes mellitus with hyperglycemia, with long-term current use of insulin (CMS/HCC) INJECT 15-18-20 UNITS SUBCUTANEOUSLY TO MEAL SIZE PLUS ISSUED SLIDING SCALE *EXPECTED DAILY DOSAGE: 70 UNITS* 15 mL 10 05/22/2024 Active Start: 05-04-2024 End: 05-06-2024 inject 1 [IU] by subcutaneous injection once daily NovoLOG FLEXPEN 100 UNIT/ML pen INJECT 15-18-20 UNITS SUBCUTANEOUSLY TO MEAL SIZE PLUS ISSUED SLIDING SCALE *EXPECTED DAILY DOSAGE: 70 UNITS* 05/04/2024 05/06/2024 Discontinued (Therapy completed) Start: 03-25-2024 End: 04-21-2024 inject 1 [IU] by subcutaneous injection once daily insulin aspart (NovoLOG FLEXPEN) 100 UNIT/ML pen Indications: Type 2 diabetes mellitus with diabetic neuropathy, with long-term current use of insulin (CMS/HCC) INJECT 15-18-20 UNITS SUBCUTANEOUSLY TO MEAL SIZE, PLUS ISSUED SLIDING SCALE *EXPECTED DAILY DOSAGE: 70 UNITS* 15 mL 2 03/25/2024 04/21/2024 Discontinued (Therapy completed) Start: 09-20-2023 NovoLOG FLEXPE N 100 UNIT/ML pen Sliding 0-6 units (6units for BS being 300) 09/20/2023 Active 3 ml insulin glargine 100 unt/ml pen injector (20 sources) Insulin Analog Start: 04-21-2024 End: 10-18-2024 Lantus SoloStar 100 UNIT/ML pen Indications: Type 2 diabetes mellitus with hyperglycemia, with long-term current use of insulin (CMS/HCC) INJECT 40 UNITS SUBCUTANEOUSLY (UNDER THE SKIN) 30 mL 1 04/23/2024 Active Start: 01-22-2024 inject 15 [IU] by chatman bcutaneous injection in the morning insulin glargine (LANTUS, SEMGLEE) 100 unit/mL (3 mL) insulin pen Inject 15 Units under the skin in the morning and 15 Units before bedtime. 15 mL 01/22/2024 Active Start: 06-24-2023 End: 04-21-2024 Lantus SoloStar 100 UNIT/ML pen Inject 60 Units under the skin at bedtime 15 units 06/24/2023 04/21/2024 Discontinued (Reorder) 0.5 unt doses 3 ml insulin lispro 100 unt/ml pen injector (20 sources) Insulin Analog Start: 04-23-2024 inject 10 [IU] by subcutaneous injection three times daily at mealtime insulin lispro (HumaLOG Winston KwikPen) 100 UNIT/ML pen Indications: Type 2 diabetes mellitus with hyperglycemia, with long-term current use of insulin (CMS/HCC) INJECT TEN UNITS SUBCUTANEOUSLY (UNDER THE SKIN) THREE TIMES DAILY (IN THE MORNING, at noon, and IN THE EVENING) WITH MEALS 30 mL 1 04/23/2024 Active Start: 04-21-2024 End: 10-18-2024 insulin lispro (HumaLOG KWIK PEN) 100 UNIT/ML injection Indications: Type 2 diabetes mellitus with hyperglycemia, with long-term current use of insulin (CMS/HCC) Inject 10 Units under the skin in the morning and 10 Units at noon and 10 Units in the evening. Inject with meals. 27 mL 1 04/21/2024 10/18/2024 Active Start: 01-22-2024 End: 04-21-2024 insulin lispro (HumaLOG) 100 UNIT/ML injection Inject 2-10 Units under the skin in the morning and 2-10 Units at noon and 2-10 Units in the evening. Inject with meals. 04/22/2024 Active Start: 01-22-2024 insulin lispro (HumaLOG) 100 unit/mL insulin pen Inject 2-8 Units under the skin nightly. Bedtime hyperglycemia dosing.For blood glucose 201-250 mg/dL, give 2 units. 251-300 mg/dL, give 4 units. e 301-350 mg/dL, give 6 units.351-400 mg/dL, give 8 units. 15 mL 01/22/2024 Active isopropyl alcohol 0.7 ml/ml medicated pad (20 sources) Start: 11-09-2023 Alcohol Swabs (Easy Touch [...] Active losartan potassium 100 mg oral tablet (20 sources) Angiotensin 2 Receptor Dania Start: 01-21-2024 End: 07-21-2024 take 1 tablet by mouth once daily losartan (Cozaar) 100 MG tablet Indications: Primary hypertension (CMS/HCC) Take 1 tablet (100 mg) by mouth Daily 90 tablet 1 04/22/2024 07/21/2024 Active Start: 10-24-2022 End: 07-26-2023 take 1 tablet by mouth in the morning losartan (Cozaar) 100 MG tablet Indications: Primary hypertension (CMS/HCC) Take 1 tablet (100 mg) by mouth in the morning. 30 tablet 3 06/26/2023 07/26/2023 Active meclizine hydrochloride 25 mg oral tablet (15 sources) Antiemetic Start: 02-24-2024 End: 04-22-2024 take 1 tablet by mouth three times daily as needed for dizziness meclizine (Antivert) 25 MG tablet Take 25 mg by mouth 3 (three) times a day as needed for dizziness 02/24/2024 04/22/2024 Discontinued (Therapy completed) pantoprazole 40 mg delayed release oral tablet (20 sources) Proton Pump Inhibitor Start: 10-24-2022 End: 07-21-2024 take 1 tablet by mouth once daily pantoprazole (ProtoNix) 40 MG EC tablet Indications: Gastroesophageal reflux disease, unspecified whether esophagitis present Take 1 tablet (40 mg) by mouth Daily 90 tablet 1 04/22/2024 07/21/2024 Active PARoxetine hydrochloride 20 mg oral tablet (20 sources) Serotonin Reuptake Inhibitor Start: 01-21-2024 End: 07-21-2024 take 1 tablet by mouth in the morning PARoxetine (Paxil) 20 MG tablet Indications: Anxiety and depression (CMS/HCC) Take 1 tablet (20 mg) by mouth in the morning. 90 tablet 1 04/22/2024 07/21/2024 Active Start: 06-26-2023 End: 07-26-2023 take 1 tablet by mouth in the morning PARoxetine (Paxil) 10 MG tablet Indications: JORDAN (generalized anxiety disorder) (CMS/HCC) Take 1 tablet (10 mg) by mouth in the morning. 30 tablet 3 06/26/2023 07/26/2023 Active Start: 10-24-2022 take 2 tablets by mo uth in the morning PARoxetine (PAXIL) 10 mg tablet Take 2 tablets (20 mg total) by mouth in the morning. 10/24/2022 Active potassium chloride 10 meq extended release oral capsule (20 sources) Start: 06-24-2023 take 1 capsule by mouth in the morning potassium chloride ER (Micro-K) 10 MEQ ER capsule Take 1 capsule by mouth in the morning. 0 06/24/2023 Active rivaroxaban 20 mg oral tablet (20 sources) Factor Xa Inhibitor Start: 06-24-2023 take 1 tablet by mouth at mealtime Xarelto 20 MG tablet Take 1 tablet by mouth in the evening. Take with meals 06/24/2023 Active rosuvastatin calcium 5 mg oral tablet (20 sources) HMG-CoA Reductase Inhibitor Start: 06-27-2022 End: 07-21-2024 take 1 tablet by mouth in the evening rosuvastatin (Crestor) 5 MG tablet Indications: Mixed hyperlipidemia (CMS/HCC) Take 1 tablet (5 mg) by mouth in the evening 90 tablet 1 04/22/2024 07/21/2024 Active spironolactone 25 mg oral tablet (20 sources) Aldosterone Antagonist Start: 03-16-2024 End: 07-21-2024 take 1 tablet by mouth in the morning spironolactone (Aldactone) 25 MG tablet Indications: Primary hypertension (CMS/HCC) , Edema of extremities Take 1 tablet (25 mg) by mouth in the morning and 1 tablet (25 mg) at noon. 180 tablet 1 04/22/2024 07/21/2024 Active Start: 01-23-2024 End: 02-25-2024 take 1 tablet by mouth in the morning spironolactone (Aldactone) 50 MG tablet Take 50 mg by mouth in the morning and 50 mg before bedtime. 01/23/2024 02/25/2024 Discontinued (Therapy completed) Start: 11-06-2023 End: 02-17-2024 take 1 tablet by mouth in the morning spironolactone (Aldactone) 25 MG tablet Indications: Edema of extremities Take 1 tablet (25 mg) by mouth in the morning and 1 tablet (25 mg) at noon. 60 tablet 5 11/06/2023 02/17/2024 Discontinued (Therapy completed) Start: 06-27-2022 take 2 tablets by mo uth at bedtime spironolactone (ALDACTONE) 25 mg tablet Take 2 tablets (50 mg total) by mouth in the morning and at bedtime. 06/27/2022 Active 10 actuat tiotropium 0.0025 mg/actuat inhalation spray (20 sources) Anticholinergic Start: 11-06-2023 End: 05-22-2024 take 2 puff(s) by inhalation once daily tiotropium (Spiriva Respimat) 2.5 MCG/ACT inhaler Indications: COPD mixed type (CMS/HCC) Inhale 2 puffs Daily 1 each 5 04/22/2024 Active Start: 06-24-2023 take 2 puff(s) by in halation in the morning Spiriva Respimat 2.5 MCG/ACT inhaler Inhale 2 puffs in the morning. 0 06/24/2023 Active Completed/Discontinued Medications Medication Drug Class(es) Dates Sig (Normalized) Sig (Original) doxycycline hyclate 100 mg oral tablet (8 sources) Tetracycline-clas s Drug Start: 04-22-2024 End: 05-06-2024 doxycycline (Vibra-Tabs) 100 MG tablet Indications: Community acquired pneumonia, unspecified laterality Take 1 tablet (100 mg) by mouth in the morning and 1 tablet (100 mg) before bedtime. Do all this for 10 days. Take with a full glass of water and do not lie down for at least 30 minutes after.. 20 tablet 04/22/2024 05/06/2024 Discontinued (Therapy completed) Start: 03-18-2024 End: 03-28-2024 doxycycline (Vibra-Tabs) 100 [...] bedtime doxycycline (DORYX) 100 MG EC tablet Take 1 tablet (100 mg total) by mouth in the morning and 1 tablet (100 mg total) before bedtime. Active Problems Active Problems Problem Classification Problem Date Documented Da te Episodic/Chronic Administrative/social admission (2 sources) Patient encounter status; Translations: [Dietary counseling and surveillance] 04-21-2024 Episodic Anxiety disorders (20 sources) Generalized anxiety disorder; Translations: [Generalized anxiety disorder] Onset: 06-26-2023 06-26-2023 Chronic Cardiac dysrhythmias (20 sources) Paroxysmal atrial fibrillation; Translations: [Atrial fibrillation] Onset: 10-17-2011 07-18-2023 Chronic Chronic obstructive pulmonary disease and bronchiectasis (20 sources) Chronic obstructive pulmonary disease, unspecified; Translations: [Chronic obstructive pulmonary disease with (acute) lower respiratory infection] Onset: 11-09-2020 Chronic Chronic ulcer of skin (17 sources) Pressure ulcer of sacral region, stage 3; Translations: [Pressure ulcer, lower back] Onset: 03-20-2024 03-20-2024 Chronic Coagulation and hemorrhagic disorders (20 sources) Thrombophilia; Translations: [Other thrombophilia] Onset: 01-21-2024 01-21-2024 Chronic Congestive heart failure; nonhypertensive (1 source) Acute combined systolic (congestive) and diastolic (congestive) heart failure; Translations: [ACUTE COMB SYSTOLIC AND DIASTOLIC CHF] Onset: 04-19-2022 Chronic Diabetes mellitus with complications (20 sources) Type 2 diabetes mellitus with unspecified complications; Translations: [Type 2 diabetes mellitus with hyperglycemia] Onset: 04-19-2022 Resolved: 01-21-2024 06-26-2023 Chronic Diabetes mellitus without complication (20 sources) Type 2 diabetes mellitus without complications; Translations: [Type 2 diabetes mellitus without complication] Onset: 06-11-2022 Chronic Diabetes mellitus without complication (2 sources) Hyperglycemia; Translations: [Hyperglycemia, unspecified] Onset: 01-16-2024 01-16-2024 Episodic Disorders of lipid metabolism (20 sources) Hyperlipidemia, unspecified; Translations: [Pure hypercholesterolemi a, unspecified] Onset: 11-27-2021 Chronic E Codes: Fall (1 source) Fall Onset: 01-16-2024 Esophageal disorders (20 sources) Gastro-esophageal reflux disease without esophagitis; Translations: [Gastroesophageal reflux disease] Onset: 06-11-2022 07-18-2023 Chronic Essential hypertension (20 sources) Essential (primary) hypertension; Translations: [Essential hypertension] Onset: 10-17-2011 06-26-2023 Chronic Genitourinary symptoms and ill-defined conditions (20 sources) Incontinence; Translations: [Mixed incontinence] Onset: 07-18-2023 07-18-2023 Chronic Hypertension with complications and secondary hypertension (1 source) Hypertensive heart disease with heart failure; Translations: [HTN HEART DISEASE W/HEART FAIL] Onset: 04-19-2022 Chronic Immunity disorders (20 sources) Secondary immune deficiency disorder; Translations: [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 classified elsewhere] Onset: 01-21-2024 01-21-2024 Chronic Immunizations and screening for infectious disease (3 sources) Encounter for immunization; Translations: [Needs influenza immunization] Onset: 11-27-2021 05-06-2024 Episodic Lymphadenitis (18 sources) Generalized enlarged lymph nodes; Translations: [Generalized enlarged lymph nodes] Onset: 04-22-2024 04-22-2024 Episodic Mood disorders (1 source) Major depressive disorder, single episode, unspecified; Translations: [SHELTON DEPRESS D/O SINGLE EPIS UNS] Onset: 04-19-2022 Chronic Mood disorders (1 source) Mood disorders; Translations: [DEPRESSION UNSPECIFIED] Onset: 06-11-2022 Nutritional deficiencies (20 sources) Vitamin D deficiency; Translations: [Vitamin D deficiency, unspecified] Onset: 07-18-2023 07-18-2023 Chronic Osteoporosis (20 sources) Age-related osteoporosis without current pathological fracture; Translations: [Osteoporosis] Onset: 10-02-2022 Chronic Other aftercare (4 sources) care home (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; Translations: [CHIEF COUNSEL CURRENT USE OF INSULIN] Onset: 06-11-2022 Episodic Other aftercare (2 sources) Long-term current use of insulin; 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] 04-21-2024 Episodic Other bone disease and musculoskeletal deformities (1 source) Other specified disorders of bone density and structure, unspecified site; Translations: [OTH D/O BONE DEN STRUCT UNS SITE] Onset: 10-08-2022 Episodic Other connective tissue disease (1 source) Muscle weakness; Translations: [Muscle weakness (generalized)] Onset: 02-06-2024 02-06-2024 Episodic Other endocrine disorders (4 sources) Adrenal mass; Translations: [Other specified disorders of adrenal gland] Onset: 05-28-2024 05-28-2024 Chronic Other gastrointestinal disorders (1 source) Adrenal mass 05-28-2024 Episodic Other injuries and conditions due to external causes (1 source) Injury of back of head; Translations: [Unspecified injury of head, initial encounter] Onset: 02-06-2024 02-06-2024 Episodic Other injuries and conditions due to external causes (1 source) Other injury of unspecified body region, initial encounter; Translations: [Other injury of unspecified body region, initial encounter] Onset: 03-20-2024 Episodic Other lower respiratory disease (20 sources) Multiple nodules of lung; Translations: [Other nonspecific abnormal finding of lung field] Onset: 04-22-2024 04-22-2024 Episodic Other nervous system disorders (1 source) Finding related to ability to move; Translations: [Other abnormalities of gait and mobility] Onset: 02-06-2024 02-06-2024 Episodic Other non-traumatic joint disorders (9 sources) Pain of right wrist; Translations: [Pain in right wrist] Onset: 05-19-2024 05-19-2024 Episodic Other nutritional; endocrine; and metabolic disorders (1 source) Morbid (severe) obesity due to excess calories; Translations: [MORBID SEVERE OBES D/T EXCESS JORDYN] Onset: 06-11-2022 Chronic Other nutritional; endocrine; and metabolic disorders (1 source) Body mass index (BMI) 40.0-44.9, adult; Translations: [BODY MASS INDEX BMI 40.0-44.9 ADULT] Onset: 06-11-2022 Chronic Other nutritional; endocrine; and metabolic disorders (20 sources) Body mass index 30+ - obesity; Translations: [Obesity, unspecified] Onset: 10-16-2023 10-16-2023 Chronic Other nutritional; endocrine; and metabolic disorders (2 sources) Obesity caused by energy imbalance; Translations: [Class 1 obesity due to excess calories without serious comorbidity with body mass index (BMI) of 33.0 to 33.9 in adult] 04-21-2024 Chronic Other upper respiratory disease (20 sources) Seasonal allergy; Translations: [Other seasonal allergic rhinitis] Onset: 07-18-2023 07-18-2023 Chronic Pneumonia (except that caused by tuberculosis or sexually transmitted disease) (19 sources) Pneumonia, unspecified organism; Translations: [Community acquired pneumonia] Onset: 04-19-2022 04-22-2024 Episodic Residual codes; unclassified (20 sources) Obstructive sleep apnea syndrome; Translations: [Obstructive sleep apnea (adult) (pediatric)] Onset: 07-18-2023 07-18-2023 Chronic Respiratory failure; insufficiency; arrest (adult) (20 sources) Dependence on supplemental oxygen; Translations: [Dependence on supplemental oxygen] Onset: 06-11-2022 03-18-2024 Chronic Substance-related disorders (4 sources) Nicotine dependence, [...] Problem Date Documented Date Episodic/Chronic Allergic reactions (20 sources) Inflammatory dermatosis; Translations: [Dermatitis, unspecified] Onset: 10-16-2023 10-16-2023 Episodic Toney (2 sources) Burn of second degree of left foot, initial encounter; Translations: [Burn of second degree of right foot, initial encounter] Onset: 11-27-2021 Episodic Conditions associated with dizziness or vertigo (20 sources) Dizziness and giddiness; Translations: [Dizziness and giddiness] Onset: 02-17-2024 02-17-2024 Episodic E Codes: Fire/burn (1 source) Contact with other heat and hot substances, initial encounter; Translations: [CONTACT OTH HEAT HOT SUBSTANCE INIT] Onset: 11-27-2021 Episodic Fluid and electrolyte disorders (20 sources) Hypokalemia; Translations: [Hypokalemia] Onset: 11-06-2023 11-06-2023 Episodic Genitourinary symptoms and ill-defined conditions (20 sources) Dysuria; Translations: [Dysuria] Onset: 10-16-2023 10-16-2023 Episodic Malaise and fatigue (20 sources) Asthenia; Translations: [Weakness] Onset: 01-16-2024 02-26-2024 Episodic Open wounds of extremities (1 source) Unspecified open wound, left foot, initial encounter; Translations: [UNS OPEN WOUND LEFT FOOT INITIAL] Onset: 06-11-2022 Episodic Open wounds of head; neck; and trunk (20 sources) Open wound of buttock; Translations: [Unspecified open wound of unspecified buttock, initial encounter] Onset: 02-25-2024 Resolved: 05-19-2024 02-25-2024 Episodic Other aftercare (1 source) care home (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 of aspirin; Translations: [[facility] CURRENT USE OF ASPIRIN] Onset: 06-11-2022 Episodic Other aftercare (1 source) 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; Translations: [OTH [facility] CURRENT DRUG THERAPY] Onset: 06-11-2022 Episodic Other aftercare (1 source) 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; Translations: [[facility] CURRNT USE ANTICOAGULANTS] Onset: 11-27-2021 Episodic Other connective tissue disease (3 sources) Pain in left foot; Translations: [PAIN IN LEFT FOOT] Onset: 06-07-2022 Episodic Other injuries and conditions due to external causes (20 sources) Open wound; Translations: [Other injury of unspecified body region, initial encounter] Onset: 07-18-2023 07-18-2023 Episodic Other nutritional; endocrine; and metabolic disorders (20 sources) Body mass index 40+ - severely obese; Translations: [Morbid (severe) obesity due to excess calories] Onset: 07-18-2023 Resolved: 05-19-2024 07-18-2023 Chronic Other screening for suspected conditions (not mental disorders or infectious disease) (20 sources) Encounter for screening mammogram for malignant neoplasm of breast; Translations: [Patient encounter status] Onset: 06-21-2022 Episodic Other upper respiratory infections (20 sources) Viral upper respiratory tract infection; Translations: [Acute upper respiratory infection, unspecified] Onset: 03-11-2024 Resolved: 04-22-2024 03-11-2024 Episodic Pancreatic disorders (not diabetes) (20 sources) Drug-induced acute pancreatitis; Translations: [Drug induced acute pancreatitis without necrosis or infection] Onset: 07-18-2023 07-18-2023 Episodic Residual codes; unclassified (1 source) Family history of malignant neoplasm of breast; Translations: [FAMILY HX MALIG NEOPLASM OF BREAST] Onset: 06-25-2022 Episodic Residual codes; unclassified (20 sources) Edema of extremity; Translations: [Localized edema] Onset: 07-18-2023 07-18-2023 Episodic Residual codes; unclassified (20 sources) Tobacco user; Translations: [Tobacco use] Onset: 07-18-2023 07-18-2023 Episodic Residual codes; unclassified (20 sources) Patient noncompliance - general; Translations: [Medical [...] TISSUE UNS] Onset: 06-11-2022 Episodic Viral infection (20 sources) Disease caused by 2019-nCoV; Translations: [COVID-19] Onset: 07-18-2023 Resolved: 04-22-2024 07-18-2023 Episodic Results Test Name Value Interpretation Reference Range Facility ALL RENAL FUNCTION PANELon 1 07-26-2023 Albumin [Mass/Vol] 3.3 g/dL Low 3.4 - 5.0 g/dL [facility] Anion gap [Moles/Vol] 9.2 mmol/L [facility] Calcium [Mass/Vol] 8.7 mg/dL 8.5 - 10. 1 mg/dL [facility] Chloride [Moles/Vol] 101 mmol/L 98 - 10 7 mmol/L [facility] CO2 [Moles/Vol] 31.7 mmol/L 21.0 - 32.0 mmol/L [facility] Creatinine [Mass/Vol] 0.87 mg/dL 0.55 - 1.02 mg/dL [facility] GFR/1.73 sq M.predicted CKD-EPI (S/P/Bld) [Vol rate/Area] >60 >=60 mL/min/1.73m 2 [facility] Glucose [Mass/Vol] 275 mg/dL High 74 - 106 mg/dL [facility] Interpretation and review of laboratory results Abnormal [facility] Phosphate [Mass/Vol] 4.3 mg/dL 2.6 - 4 .7 mg/dL [facility] Potassium [Moles/Vol] 3.9 mmol/L 3.5 - 5.1 mmol/L [facility] Sodium [Moles/Vol] 138 mmol/L 136 - 145 mmol/L [facility] TBH EGFR-NON AF MALIAN >60 >=60 mL/min/1.73m 2 [facility] Urea nitrogen [Mass/Vol] 15 mg/dL 7.0 - 18.0 mg/dL [facility] Urea nitrogen/Creatinine [Mass ratio] 17.2 mg/mg [facility] Glucose (Bld) [Mass/Vol]Orde red By: Candy Baxter on 04-21-2024 Glucose Blood, POC 208 mg/dL [facility] - Hematology and Cell countson 04-21-2024 HbA1c (Bld) [Mass fraction] 10.6 % [facility] No Panel InformationOrdered By: Candy Baxter on 04-21-2024 [facility] UA (CLEAN/CATCH) MICROSC OPIC IF INDICATEon 04-09-2024 BILIRUBIN URINE Negative NEGATIVE [facility] BLOOD URINE Negative NEGATIVE [facility] Clarity (U) CLEAR CLEAR [facility] Color (U) LT. YELLOW YELLOW [facility] GLUCOSE URINE UA >=1000 Abnormal NEGATIVE mg/dL [facility] Interpretation and review of laboratory results Abnormal [facility] Ketones Ql (U) Negative NEGATIVE mg/dL [facility] Leukocyte esterase Test strip Ql (U) Negative NEGATIVE [facility] NITRITE URINE Negative NEGATIVE [facility] pH (U) 6.0 [pH] 5.0 - 9.0 [facility] PROTEIN URINE Negative NEG/TRACE mg/dL [facility] SPECIFIC GRAVITY URINE 1.010 1.005 - 1.025 [facility] URINE MICROSCOPIC INDICATED NO [facility] UROBILINOGEN URINE 0.2 EU/dL 0.2 - 1.0 EU/dL [facility] URINE CULTURE, ROUTINEon Bacteria identified [facility] (U) Urine Culture, Routine [facility] Bacteria identified [facility] (U) Mixed urogenital amilcar [facility] Bacteria identified [facility] (U) 10,000-25,000 colony forming units per mL [facility] Bacteria identified [facility] (U) [facility] ([facility]) [address], [place] [id number] [facility] Bacteria identified [facility] (U) Electronic Resources Librarian: Josh Moore PhD, Phone: [phone] [facility] CBC AND AUTO DIFFon 01-22-20 ABSOLUTE BASOPHIL 0.0 X10E9/L Normal 0.0-0.2 [facility] Comment on above: Performed By: #### C BCA, 37869-7, CMP, 50286-0, 52603-3 #### [facility] ([id number]) [address] [place] [address] 27072 ABSOLUTE NEUTROPHIL 4.2 X10E9/L Normal 1.5-6.6 [facility] Comment on above: Performed By: #### C BRITTNEY, 36231-3, CMP, 72089-5, 58935-9 #### [facility] ([id number]) [address] [place] [address] 66646 Basophils/100 WBC (Bld) 0.4 % Normal [facility] Comment on above: Performed By: #### Casey LUGO, 38951-7, CMP, 19988-8, 11870-4 #### [facility] ([id number]) [address] [place] [address] 49782 Eosinophils (Bld) [#/Vol] 0.2 10*3/uL Normal 0.0-0.4 [facility] Comment on above: Performed By: #### Casey LUGO, 40370-4, CMP, 68468-3, 48889-6 #### [facility] ([id number]) [address] [place] [address] 61046 Eosinophils/100 WBC (Bld) 2.6 % Normal [facility] Comment on above: Performed By: #### Casey LUGO, 31895-7, CMP, 57967-5, 64603-5 #### [facility] ([id number]) [address] [place] [address] 95881 Erythrocyte distribution width (RBC) [Ratio] 13.5 % Normal 11.5-15.0 [facility] Comment on above: Performed By: #### Casey LUGO, 64864-1, CMP, 58564-0, 31473-5 #### [facility] ([id number]) [address] [place] [address] 40613 Hematocrit (Bld) [Volume fraction] 48.3 % High 35-47 [facility] Comment on above: Performed By: #### C BCA, 68795-1, CMP, 43026-6, 78506-1 #### [facility] ([id number]) [address] [place] [address] 94684 Hemoglobin (Bld) [Mass/Vol] 16.0 g/dL High 11.7-15.5 [facility] Comment on above: Performed By: #### Casey LUGO, 68014-9, CMP, 25578-0, 44956-6 #### [facility] ([id number]) [address] [place] [address] 59246 Lymphocytes (Bld) [#/Vol] 1.9 10*3/uL Normal 1.0-3.5 [facility] Comment on above: Performed By: #### Casey LUGO, 71377-1, CMP, 87826-0, 65457-3 #### [facility] ([id number]) [address] [place] [address] 00170 Lymphocytes/100 WBC (Bld) 27.1 % Normal [facility] Comment on above: Performed By: #### Casey LUGO, 91715-2, CMP, 30585-2, 08093-2 #### [facility] ([id number]) [address] [place] [address] 29748 MCH (RBC) [Entitic mass] 31.5 pg Normal 27-34 [facility] Comment on above: Performed By: #### Casey BCA, 66585-7, CMP, 30984-1, 41001-6 #### [facility] ([id number]) [address] [place] [address] 16340 MCHC (RBC) [Mass/Vol] 33.1 g/dL Normal 32-36 [facility] Comment on above: Performed By: #### Casey LUGO, 98305-2, CMP, 21422-4, 78667-2 #### [facility] ([id number]) [address] [place] [address] 78053 MCV (RBC) [Entitic vol] 95 fL Normal 80-100 [facility] Comment on above: Performed By: #### Casey LUGO, 54175-0, CMP, 11338-8, 35485-7 #### [facility] ([id number]) [address] [place] [address] 13500 Monocytes (Bld) [#/Vol] 0.7 10*3/uL Normal 0-0.9 [facility] Comment on above: Performed By: #### Caesy LUGO, 38283-4, CMP, 30095-8, 93935-1 #### [facility] ([id number]) [address] [place] [address] 40561 Monocytes/100 WBC (Bld) 10.0 % Normal [facility] Comment on above: Performed By: #### Casey LUGO, 28426-8, CMP, 18892-1, 91557-8 #### [facility] ([id number]) [address] [place] [address] 80786 Neutrophils/100 WBC (Bld) 59.9 % Normal [facility] Comment on above: Performed By: #### Casey LUGO, 01520-5, CMP, 76491-3, 42078-7 #### [facility] ([id number]) [address] [place] [address] [place] [address] Platelet mean volume (Bld) [Entitic vol] 9.0 fL Normal 7-12 [facility] Comment on above: Performed By: #### Casey LUGO, 20163-5, CMP, 82457-1, 76093-7 #### [facility] ([id number]) [address] [place] [address] 73629 Platelets (Bld) [#/Vol] 264 10*3/uL Normal 150-450 [facility] Comment on above: Performed By: #### C BCA, 59770-1, CMP, 92146-5, 50756-4 #### [facility] ([id number]) [address] [place] [address] 39672 RBC COUNT 5.07 X10E12/L Normal 3.80-5.20 [facility] Comment on above: Performed By: #### C BCA, 01804-4, CMP, 72809-0, 51653-2 #### [facility] ([id number]) [address] [place] [address] 13530 WBC (Bld) [#/Vol] 7.1 10*3/uL Normal 4.0-11.0 [facility] Comment on above: Performed By: #### C BCA, 16532-2, CMP, 60497-6, 31592-6 #### [facility] ([id number]) [address] [place] [address] 59283 COMPREHENSIVE METABOLIC PANE [facility] 01-22-2024 Albumin [Mass/Vol] 3.1 g/dL Low 3.2-5.3 [facility] Comment on above: Performed By: #### C BCA, 58533-8, CMP, 15987-5, 86624-9 #### [facility] ([id number]) [address] [place] [address] 06070 ALP [Catalytic activity/Vol] 98 U/L Normal 39-130 [facility] Comment on above: Performed By: #### C BCA, 85805-6, CMP, 51685-5, 30148-8 #### [facility] ([id number]) [address] [place] [address] 10437 ALT [Catalytic activity/Vol] 21 U/L Normal 0-31 [facility] Comment on above: Performed By: #### C BCA, 32506-3, CMP, 96025-5, 81006-1 #### [facility] ([id number]) [address] [place] [address] 67636 Anion gap [Moles/Vol] 7 mmol/L Normal 5-15 [facility] Comment on above: Performed By: #### C BCA, 52876-9, CMP, 58466-1, 26681-6 #### [facility] ([id number]) [address] [place] [address] 47483 AST [Catalytic activity/Vol] 19 U/L Normal 0-41 [facility] Comment on above: Performed By: #### C BCA, 94667-4, CMP, 09582-6, 35711-8 #### [facility] ([id number]) [address] [place] [address] 45485 Bilirubin [Mass/Vol] 0.5 mg/dL Normal 0.3-1.2 [facility] Comment on above: Performed By: #### C BCA, 48006-1, CMP, 79186-0, 92772-6 #### [facility] ([id number]) [address] [place] [address] 26407 Calcium [Mass/Vol] 8.9 mg/dL Normal 8.5-10.5 [facility] Comment on above: Performed By: #### C BCA, 54836-6, CMP, 86475-0, 79457-1 #### [facility] ([id number]) [address] [place] [address] 02479 Chloride [Moles/Vol] 100 mmol/L Normal 98-109 [facility] Comment on above: Performed By: #### C BCA, 81612-0, CMP, 77016-8, 66575-1 #### [facility] ([id number]) [address] [place] [address] 99685 CO2 [Moles/Vol] 31 mmol/L Normal 22-32 [facility] Comment on above: Performed By: #### C BCA, 42546-6, CMP, 90729-7, 05759-3 #### [facility] ([id number]) [address] [place] [address] 35437 Creatinine [Mass/Vol] 0.51 mg/dL Normal 0.40-1.00 [facility] Comment on above: Result Comment: METH OD TRACEABLE TO IDMS STANDARD Performed By: #### C BCA, 22739-2, CMP, 48485-9, 91462-2 #### [facility] ([id number]) [address] [place] [address] 92698 eGFR (CKD-EPI) NON-RACE DEPENDENT >90 Normal >59 [facility] Comment on above: Result Comment: Reported eGFR is based on the CKD-EPI 2020 equation that does not use a race coefficient. Performed By: #### C BCA, 37290-8, CMP, , 57710-2 #### [facility] ([id number]) [address] [place] [address] 57592 Glucose [Mass/Vol] 153 mg/dL High 65-99 [facility] Comment on above: Performed By: #### C BCA, 57062-0, CMP, , 76828-0 #### [facility] ([id number]) [address] [place] [address] 28947 Potassium [Moles/Vol] 4.0 mmol/L Normal 3.5-5.0 [facility] Comment on above: Performed By: #### C BCA, 22977-4, CMP, 66147-4, 38607-7 #### [facility] ([id number]) [address] [place] [address] 74544 Protein [Mass/Vol] 6.5 g/dL Normal 6.0-8.0 [facility] Comment on above: Performed By: #### C BCA, 15364-0, CMP, 52436-8, 82928-8 #### [facility] ([id number]) [address] [place] [address] 78081 Sodium [Moles/Vol] 138 mmol/L Normal 134-146 [facility] Comment on above: Performed By: #### C BCA, 16596-8, CMP, 15496-6, 22519-9 #### [facility] ([id number]) [address] [place] [address] 28402 Urea nitrogen [Mass/Vol] 20 mg/dL Normal 5-27 [facility] Comment on above: Performed By: #### C BCA, 95466-3, CMP, 84552-0, 50995-2 #### [facility] ([id number]) [address] [place] [address] 10109 MAGNESIUMon 01-22-2024 Magnesium [Mass/Vol] 2.2 mg/dL Normal 1.8-2.6 [facility] Comment on above: Performed By: #### C BCA, 83883-6, CMP, , 84284-5 #### [facility] ([id number]) [address] [place] [address] 55579 CBC AND AUTO DIFFon 01-20- 24 ABSOLUTE BASOPHIL 0.0 X10E9/L Normal 0.0-0.2 [facility] Comment on above: Performed By: #### C BCA, 82695-7, CMP, , 90162-6 #### [facility] ([id number]) [address] [place] [address] 92509 ABSOLUTE NEUTROPHIL 4.5 X10E9/L Normal 1.5-6.6 [facility] Comment on above: Performed By: #### C BCA, 46898-2, CMP, 58532-3, 23272-9 #### [facility] ([id number]) [address] [place] [address] Basophils/100 WBC (Bld) 0.3 % Normal [facility] Comment on above: Performed By: #### Casey LUGO, 61098-5, CMP, 64580-6, 31760-8 #### [facility] ([id number]) [address] [place] [address] 98962 Eosinophils (Bld) [#/Vol] 0.2 10*3/uL Normal 0.0-0.4 [facility] Comment on above: Performed By: #### Casey LUGO, 64353-2, CMP, 33307-4, 97281-5 #### [facility] ([id number]) [address] [place] [address] 86074 Eosinophils/100 WBC (Bld) 2.4 % Normal [facility] Comment on above: Performed By: #### Casey LUGO, 78209-6, CMP, , 13055-6 #### [facility] ([id number]) [address] [place] [address] 94986 Erythrocyte distribution width (RBC) [Ratio] 13.6 % Normal 11.5-15.0 [facility] Comment on above: Performed By: #### Casey LUOG, 35470-2, CMP, 10815-7, 22196-7 #### [facility] ([id number]) [address] [place] [address] 56001 Hematocrit (Bld) [Volume fraction] 48.3 % High 35-47 [facility] Comment on above: Performed By: #### Casey LUGO, 05412-6, CMP, 24119-4, 97150-0 #### [facility] ([id number]) [address] [place] [address] 82722 Hemoglobin (Bld) [Mass/Vol] 16.1 g/dL High 11.7-15.5 [facility] Comment on above: Performed By: #### Casey LUGO, 55112-7, CMP, 12335-2, 89226-5 #### [facility] ([id number]) [address] [place] [address] 12829 Lymphocytes (Bld) [#/Vol] 1.8 10*3/uL Normal 1.0-3.5 [facility] Comment on above: Performed By: #### Casey LUGO, 56096-8, CMP, 51367-7, 01716-8 #### [facility] ([id number]) [address] [place] [address] 90179 Lymphocytes/100 WBC (Bld) 24.9 % Normal [facility] Comment on above: Performed By: #### Casey LUGO, 58106-7, CMP, 42939-2, 59391-8 #### [facility] ([id number]) [address] [place] [address] 15973 MCH (RBC) [Entitic mass] 31.7 pg Normal 27-34 [facility] Comment on above: Performed By: #### Casey LUGO, 45548-6, CMP, 40698-6, 36589-7 #### [facility] ([id number]) [address] [place] [address] 55686 MCHC (RBC) [Mass/Vol] 33.4 g/dL Normal 32-36 [facility] Comment on above: Performed By: #### Casey LUGO, 28396-0, CMP, 98322-5, 47047-0 #### [facility] ([id number]) [address] [place] [address] 82464 MCV (RBC) [Entitic vol] 95 fL Normal 80-100 [facility] Comment on above: Performed By: #### Casey LUGO, 86969-9, CMP, 62386-5, 00541-7 #### [facility] ([id number]) [address] [place] [address] 09322 Monocytes (Bld) [#/Vol] 0.9 10*3/uL Normal 0-0.9 [facility] Comment on above: Performed By: #### Casey LUGO, 96945-0, CMP, 50167-3, 53321-0 #### [facility] ([id number]) [address] [place] [address] 50890 Monocytes/100 WBC (Bld) 12.0 % Normal [facility] Comment on above: Performed By: #### Casey LUGO, 27698-8, CMP, 70925-3, 33427-8 #### [facility] ([id number]) [address] [place] [address] 68075 Neutrophils/100 WBC (Bld) 60.4 % Normal [facility] Comment on above: Performed By: #### Casey LUGO, 77000-7, CMP, 16654-0, 03347-2 #### [facility] ([id number]) [address] [place] [address] 56442 Platelet mean volume (Bld) [Entitic vol] 9.6 fL Normal 7-12 [facility] Comment on above: Performed By: #### Casey LUGO, 94685-2, CMP, 84193-2, 50607-6 #### [facility] ([id number]) [address] [place] [address] 08985 Platelets (Bld) [#/Vol] 230 10*3/uL Normal 150-450 [facility] Comment on above: Performed By: #### Casey LUGO, 02491-4, CMP, 54468-0, 41009-4 #### [facility] ([id number]) [address] [place] [address] 50999 RBC COUNT 5.09 X10E12/L Normal 3.80-5.20 [facility] Comment on above: Performed By: #### Casey LUGO, 67679-1, CMP, 24729-7, 49521-1 #### [facility] ([id number]) [address] [place] [address] 51541 WBC (Bld) [#/Vol] 7.4 10*3/uL Normal 4.0-11.0 [facility] Comment on above: Performed By: #### C BCA, 74041-3, CMP, 10967-3, 71624-9 #### [facility] ([id number]) [address] [place] [address] 18999 COMPREHENSIVE METABOLIC PANE [place] 01-21-2024 Albumin [Mass/Vol] 3.1 g/dL Low 3.2-5.3 [facility] Comment on above: Performed By: #### C BCA, 97947-8, CMP, 64915-3, 71024-1 #### [facility] ([id number]) [address] [place] [address] 10404 ALP [Catalytic activity/Vol] 96 U/L Normal 39-130 [facility] Comment on above: Performed By: #### C BCA, 01951-1, CMP, 68519-6, 20187-1 #### [facility] ([id number]) [address] [place] [address] 88966 ALT [Catalytic activity/Vol] 18 U/L Normal 0-31 [facility] Comment on above: Performed By: #### C BCA, 35728-4, CMP, 27959-3, 14864-1 #### [facility] ([id number]) [address] [place] [address] 07084 Anion gap [Moles/Vol] 7 mmol/L Normal 5-15 [facility] Comment on above: Performed By: #### C BCA, 68639-5, CMP, 36414-1, 21751-1 #### [facility] ([id number]) [address] [place] [address] 00053 AST [Catalytic activity/Vol] 16 U/L Normal 0-41 [facility] Comment on above: Performed By: #### C BCA, 12396-1, CMP, 41211-7, 06512-5 #### [facility] ([id number]) [address] [place] [address] 85705 Bilirubin [Mass/Vol] 0.5 mg/dL Normal 0.3-1.2 [facility] Comment on above: Performed By: #### C BCA, 94314-6, CMP, 00133-2, 71544-5 #### [facility] ([id number]) [address] [place] [address] 73708 Calcium [Mass/Vol] 9.1 mg/dL Normal 8.5-10.5 [facility] Comment on above: Performed By: #### C BCA, 76081-9, CMP, 44585-0, 66636-1 #### [facility] ([id number]) [address] [place] [address] 56262 Chloride [Moles/Vol] 98 mmol/L Normal 98-109 [facility] Comment on above: Performed By: #### C BCA, 23637-4, CMP, 69358-2, 32091-6 #### [facility] ([id number]) [address] [place] [address] 17445 CO2 [Moles/Vol] 33 mmol/L High 22-32 [facility] Comment on above: Performed By: #### C BCA, 09746-8, CMP, 90594-7, 56945-5 #### [facility] ([id number]) [address] [place] [address] 59393 Creatinine [Mass/Vol] 0.45 mg/dL Normal 0.40-1.00 [facility] Comment on above: Result Comment: METH OD TRACEABLE TO IDMS STANDARD Performed By: #### C BCA, 38631-3, CMP, 09549-2, 66400-7 #### [facility] ([id number]) [address] [place] [address] 40161 eGFR (CKD-EPI) NON-RACE DEPENDENT >90 Normal >59 [facility] Comment on above: Result Comment: Reported eGFR is based on the CKD-EPI 2020 equation that does not use a race coefficient. Performed By: #### C BCA, 68073-6, CMP, 24165-6, 20715-6 #### [facility] ([id number]) [address] [place] [address] 36274 Glucose [Mass/Vol] 138 mg/dL High 65-99 [facility] Comment on above: Performed By: #### C BCA, 17411-3, CMP, 20709-2, 35728-7 #### [facility] ([id number]) [address] [place] [address] 04515 Potassium [Moles/Vol] 3.8 mmol/L Normal 3.5-5.0 [facility] Comment on above: Performed By: #### C BCA, 17993-8, CMP, 20615-3, 77202-4 #### [facility] ([id number]) [address] [place] [address] 36129 Protein [Mass/Vol] 6.6 g/dL Normal 6.0-8.0 [facility] Comment on above: Performed By: #### C BCA, 33113-9, CMP, 89219-1, 99819-2 #### [facility] ([id number]) [address] [place] [address] 79381 Sodium [Moles/Vol] 138 mmol/L Normal 134-146 [facility] Comment on above: Performed By: #### C BCA, 20147-5, CMP, 26903-1, 20756-0 #### [facility] ([id number]) [address] [place] [address] 70808 Urea nitrogen [Mass/Vol] 18 mg/dL Normal 5-27 [facility] Comment on above: Performed By: #### C BRITTNEY, 55003-2, CMP, 44422-3, 01151-0 #### [facility] ([id number]) [address] [place] [address] 47010 Glucose Glucometer (BldC) [M ass/Vol]on 01-21-2024 Glucose [Mass/Vol] 312 mg/dL High 65-99 [facility] Glucose [Mass/Vol] 285 mg/dL High 65-99 [facility] Glucose [Mass/Vol] 178 mg/dL High 65-99 [facility] MAGNESIUMon 01-21-2024 Magnesium [Mass/Vol] 2.2 mg/dL Normal 1.8-2.6 [facility] Comment on above: Performed By: #### C BRITTNEY, 81418-4, CMP, 34484-2, 16060-7 #### [facility] ([id number]) [address] [place] [address] 52995 POTASSIUMon 01-21-2024 Potassium [Moles/Vol] 4.4 mmol/L Normal 3.5-5.0 [facility] Comment on above: Performed By: #### C BRITTNEY, 45937-5, CMP, 93690-2, 28710-3 #### [facility] ([id number]) [address] [place] [address] 25066 CBC AND AUTO DIFFon 01-20-20 24 ABSOLUTE BASOPHIL 0.0 X10E9/L Normal 0.0-0.2 [facility] Comment on above: Performed By: #### C BRITTNEY, 73358-8, CMP, 94605-6, 34435-0 #### [facility] ([id number]) [address] [place] [address] 97694 ABSOLUTE NEUTROPHIL 6.3 X10E9/L Normal 1.5-6.6 [facility] Comment on above: Performed By: #### C BRITTNEY, 69881-5, CMP, 61698-4, 98820-6 #### [facility] ([id number]) [address] [place] [address] 63520 Basophils/100 WBC (Bld) 0.5 % Normal [facility] Comment on above: Performed By: #### C BRITTNEY, 94030-3, CMP, 34983-7, 66861-4 #### [facility] ([id number]) [address] [place] [address] 50365 Eosinophils (Bld) [#/Vol] 0.1 10*3/uL Normal 0.0-0.4 [facility] Comment on above: Performed By: #### Casey LUGO, 59242-1, CMP, 21678-0, 65054-0 #### [facility] ([id number]) [address] [place] [address] 14188 Eosinophils/100 WBC (Bld) 1.3 % Normal [facility] Comment on above: Performed By: #### Casey LUGO, 43864-0, CMP, 27989-6, 11016-6 #### [facility] ([id number]) [address] [place] [address] 47853 Erythrocyte distribution width (RBC) [Ratio] 13.6 % Normal 11.5-15.0 [facility] Comment on above: Performed By: #### Casey LUGO, 34038-6, CMP, 10139-1, 74161-4 #### [facility] ([id number]) [address] [place] [address] 62798 Hematocrit (Bld) [Volume fraction] 47.5 % High 35-47 [facility] Comment on above: Performed By: #### Casey LUGO, 80810-1, CMP, 28597-6, 78127-6 #### [facility] ([id number]) [address] [place] [address] 27283 Hemoglobin (Bld) [Mass/Vol] 16.1 g/dL High 11.7-15.5 [facility] Comment on above: Performed By: #### Casey LUGO, 90815-0, CMP, 50644-3, 46494-4 #### [facility] ([id number]) [address] [place] [address] 72352 Lymphocytes (Bld) [#/Vol] 1.8 10*3/uL Normal 1.0-3.5 [facility] Comment on above: Performed By: #### Casey LUGO, 53562-0, CMP, 25941-4, 38476-6 #### [facility] ([id number]) [address] [place] [address] 66688 Lymphocytes/100 WBC (Bld) 19.8 % Normal [facility] Comment on above: Performed By: #### Casey LUGO, 56597-3, CMP, 98874-0, 58463-7 #### [facility] ([id number]) [address] [place] [address] 58483 MCH (RBC) [Entitic mass] 32.2 pg Normal 27-34 [facility] Comment on above: Performed By: #### Casey LUGO, 40679-4, CMP, , 95436-6 #### [facility] ([id number]) [address] [place] [address] 45469 MCHC (RBC) [Mass/Vol] 33.8 g/dL Normal 32-36 [facility] Comment on above: Performed By: #### Casey LUGO, 39160-9, CMP, 32047-9, 44185-2 #### [facility] ([id number]) [address] [place] [address] 35788 MCV (RBC) [Entitic vol] 95 fL Normal 80-100 [facility] Comment on above: Performed By: #### Casey LUGO, 62834-3, CMP, 58866-0, 72595-1 #### [facility] ([id number]) [address] [place] [address] 30131 Monocytes (Bld) [#/Vol] 0.9 10*3/uL Normal 0-0.9 [facility] Comment on above: Performed By: #### Casey LUGO, 32967-6, CMP, 91241-9, 57059-6 #### [facility] ([id number]) [address] [place] [address] 40953 Monocytes/100 WBC (Bld) 9.3 % Normal [facility] Comment on above: Performed By: #### Casey LUGO, 16731-2, CMP, 29800-1, 32151-8 #### [facility] ([id number]) [address] [place] [address] 25921 Neutrophils/100 WBC (Bld) 69.1 % Normal [facility] Comment on above: Performed By: #### Casey LUGO, 85662-2, CMP, 08528-2, 06936-5 #### [facility] ([id number]) [address] [place] [address] 79447 Platelet mean volume (Bld) [Entitic vol] 9.3 fL Normal 7-12 [facility] Comment on above: Performed By: #### Casey LUGO, 71361-2, CMP, 54310-1, 56019-5 #### [facility] ([id number]) [address] [place] [address] 75277 Platelets (Bld) [#/Vol] 213 10*3/uL Normal 150-450 [facility] Comment on above: Performed By: #### Casey LUGO, 67253-1, CMP, 24229-5, 73767-3 #### [facility] ([id number]) [address] [place] [address] 52703 RBC COUNT 4.99 X10E12/L Normal 3.80-5.20 [facility] Comment on above: Performed By: #### C BCA, 69400-6, CMP, 43607-2, 82480-9 #### [facility] ([id number]) [address] [place] [address] 38404 WBC (Bld) [#/Vol] 9.2 10*3/uL Normal 4.0-11.0 [facility] Comment on above: Performed By: #### C BCA, 56344-9, CMP, 24792-1, 74555-9 #### [facility] ([id number]) [address] [place] [address] 87519 COMPREHENSIVE METABOLIC PANE Blayne 01-20-2024 Albumin [Mass/Vol] 3.1 g/dL Low 3.2-5.3 [facility] Comment on above: Performed By: #### C BCA, 48776-7, CMP, 46266-4, 11166-8 #### [facility] ([id number]) [address] [place] [address] 10675 ALP [Catalytic activity/Vol] 96 U/L Normal 39-130 [facility] Comment on above: Performed By: #### C BCA, 16467-9, CMP, 28060-5, 07378-8 #### [facility] ([id number]) [address] [place] [address] 51792 ALT [Catalytic activity/Vol] 19 U/L Normal 0-31 [facility] Comment on above: Performed By: #### C BCA, 27354-7, CMP, 49808-3, 95692-1 #### [facility] ([id number]) [address] [place] [address] 00698 Anion gap [Moles/Vol] 9 mmol/L Normal 5-15 [facility] Comment on above: Performed By: #### C BCA, 01926-4, CMP, 28308-9, 66187-9 #### [facility] ([id number]) [address] [place] [address] 08303 AST [Catalytic activity/Vol] 17 U/L Normal 0-41 [facility] Comment on above: Performed By: #### C BCA, 04837-3, CMP, 27302-2, 55400-2 #### [facility] ([id number]) [address] [place] [address] 00561 Bilirubin [Mass/Vol] 0.5 mg/dL Normal 0.3-1.2 [facility] Comment on above: Performed By: #### Casey BCA, 31909-4, CMP, 82982-3, 05566-7 #### [facility] ([id number]) [address] [place] [address] 94385 Calcium [Mass/Vol] 8.8 mg/dL Normal 8.5-10.5 [facility] Comment on above: Performed By: #### C BCA, 21295-6, CMP, 25116-2, 68129-7 #### [facility] ([id number]) [address] [place] [address] 74265 Chloride [Moles/Vol] 98 mmol/L Normal 98-109 [facility] Comment on above: Performed By: #### C BCA, 57542-4, CMP, 93868-1, 67655-5 #### [facility] ([id number]) [address] [place] [address] 20250 CO2 [Moles/Vol] 30 mmol/L Normal 22-32 [facility] Comment on above: Performed By: #### C BCA, 78293-5, CMP, 01367-5, 10972-7 #### [facility] ([id number]) [address] [place] [address] 83743 Creatinine [Mass/Vol] 0.50 mg/dL Normal 0.40-1.00 [facility] Comment on above: Result Comment: METH OD TRACEABLE TO IDMS STANDARD Performed By: #### C BCA, 43751-9, CMP, 94248-9, 75721-1 #### [facility] ([id number]) [address] [place] [address] 03993 eGFR (CKD-EPI) NON-RACE DEPENDENT >90 Normal >59 [facility] Comment on above: Result Comment: Reported eGFR is based on the CKD-EPI 2020 equation that does not use a race coefficient. Performed By: #### C BCA, 11842-8, CMP, , 86268-9 #### [facility] ([id number]) [address] [place] [address] 57343 Glucose [Mass/Vol] 282 mg/dL High 65-99 [facility] Comment on above: Performed By: #### C BCA, 74002-8, CMP, , 46295-6 #### [facility] ([id number]) [address] [place] [address] 73994 Potassium [Moles/Vol] 4.2 mmol/L Normal 3.5-5.0 [facility] Comment on above: Performed By: #### C BCA, 79810-0, CMP, 05358-1, 80553-1 #### [facility] ([id number]) [address] [place] [address] 96914 Protein [Mass/Vol] 6.2 g/dL Normal 6.0-8.0 [facility] Comment on above: Performed By: #### C BCA, 28425-3, CMP, 72617-9, 60629-6 #### [facility] ([id number]) [address] [place] [address] 38871 Sodium [Moles/Vol] 137 mmol/L Normal 134-146 [facility] Comment on above: Performed By: #### C BRITTNEY, 48216-8, CMP, 50614-9, 89932-8 #### [facility] ([id number]) [address] [place] [address] 22282 Urea nitrogen [Mass/Vol] 18 mg/dL Normal 5-27 [facility] Comment on above: Performed By: #### Casey LUGO, 77065-4, CMP, , 72805-3 #### [facility] ([id number]) [address] [place] [address] 26163 Glucose Glucometer (BldC) [M ass/Vol]on 01-20-2024 Glucose [Mass/Vol] 277 mg/dL High 65-99 [facility] Glucose [Mass/Vol] 174 mg/dL High 65-99 [facility] Glucose [Mass/Vol] 324 mg/dL High 65-99 [facility] Glucose [Mass/Vol] 172 mg/dL High 65-99 [facility] MAGNESIUMon 01-20-2024 Magnesium [Mass/Vol] 2.0 mg/dL Normal 1.8-2.6 [facility] Comment on above: Performed By: #### C BRITTNEY, 18657-2, CMP, , 16781-3 #### [facility] ([id number]) [address] [place] [address] 33993 CBC AND AUTO DIFFon 01-19-20 24 ABSOLUTE BASOPHIL 0.0 X10E9/L Normal 0.0-0.2 [facility] Comment on above: Performed By: #### Casey LUGO, 74691-0, CMP, 30350-5, 59678-0 #### [facility] ([id number]) [address] [place] [address] 67693 ABSOLUTE NEUTROPHIL 7.7 X10E9/L High 1.5-6.6 [facility] Comment on above: Performed By: #### Casey LUGO, 70804-5, CMP, 05882-4, 67348-2 #### [facility] ([id number]) [address] [place] [address] 25838 Basophils/100 WBC (Bld) 0.4 % Normal [facility] Comment on above: Performed By: #### Casey LUGO, 55896-1, CMP, 22431-9, 53852-1 #### [facility] ([id number]) [address] [place] [address] 71326 Eosinophils (Bld) [#/Vol] 0.2 10*3/uL Normal 0.0-0.4 [facility] Comment on above: Performed By: #### Casey LUGO, 52575-7, CMP, , 25442-9 #### [facility] ([id number]) [address] [place] [address] 05740 Eosinophils/100 WBC (Bld) 1.7 % Normal [facility] Comment on above: Performed By: #### Casey LUGO, 72074-7, CMP, 73290-5, 01269-5 #### [facility] ([id number]) [address] [place] [address] 71423 Erythrocyte distribution width (RBC) [Ratio] 13.7 % Normal 11.5-15.0 [facility] Comment on above: Performed By: #### Casey LUGO, 61211-7, CMP, 52411-3, 39458-9 #### [facility] ([id number]) [address] [place] [address] 27170 Hematocrit (Bld) [Volume fraction] 48.3 % High 35-47 [facility] Comment on above: Performed By: #### Casey LUGO, 06320-6, CMP, 08800-3, 27787-0 #### [facility] ([id number]) [address] [place] [address] 53336 Hemoglobin (Bld) [Mass/Vol] 15.9 g/dL High 11.7-15.5 [facility] Comment on above: Performed By: #### Casey LUGO, 78260-6, CMP, 15294-3, 31312-5 #### [facility] ([id number]) [address] [place] [address] 13445 Lymphocytes (Bld) [#/Vol] 2.2 10*3/uL Normal 1.0-3.5 [facility] Comment on above: Performed By: #### Casey LUGO, 86719-9, CMP, 39037-0, 55560-2 #### [facility] ([id number]) [address] [place] [address] 23982 Lymphocytes/100 WBC (Bld) 20.2 % Normal [facility] Comment on above: Performed By: #### Casey LUGO, 51086-7, CMP, , 56336-9 #### [facility] ([id number]) [address] [place] [address] 86747 MCH (RBC) [Entitic mass] 31.1 pg Normal 27-34 [facility] Comment on above: Performed By: #### Casey LUGO, 68923-2, CMP, , 77146-3 #### [facility] ([id number]) [address] [place] [address] 86762 MCHC (RBC) [Mass/Vol] 32.9 g/dL Normal 32-36 [facility] Comment on above: Performed By: #### Casey LUGO, 85707-4, CMP, 58513-8, 65700-3 #### [facility] ([id number]) [address] [place] [address] 69363 MCV (RBC) [Entitic vol] 95 fL Normal 80-100 [facility] Comment on above: Performed By: #### Casey LUGO, 33517-6, CMP, 63774-2, 93502-5 #### [facility] ([id number]) [address] [place] [address] 46447 Monocytes (Bld) [#/Vol] 0.9 10*3/uL Normal 0-0.9 [facility] Comment on above: Performed By: #### Casey LUGO, 66390-5, CMP, 74286-6, 49168-4 #### [facility] ([id number]) [address] [place] [address] 17828 Monocytes/100 WBC (Bld) 8.1 % Normal [facility] Comment on above: Performed By: #### Casey LUGO, 73966-0, CMP, 74212-8, 39022-8 #### [facility] ([id number]) [address] [place] [address] 68207 Neutrophils/100 WBC (Bld) 69.6 % Normal [facility] Comment on above: Performed By: #### Casey LUGO, 70452-6, CMP, 35416-2, 86516-0 #### [facility] ([id number]) [address] [place] [address] 99186 Platelet mean volume (Bld) [Entitic vol] 9.9 fL Normal 7-12 [facility] Comment on above: Performed By: #### Casey LUGO, 65612-5, CMP, 81373-9, 01913-3 #### [facility] ([id number]) [address] [place] [address] 54594 Platelets (Bld) [#/Vol] 219 10*3/uL Normal 150-450 [facility] Comment on above: Performed By: #### Casey LUGO, 63173-2, CMP, 41559-6, 15936-5 #### [facility] ([id number]) [address] [place] [address] 46275 RBC COUNT 5.11 X10E12/L Normal 3.80-5.20 [facility] Comment on above: Performed By: #### C BCA, 92767-6, CMP, 90158-2, 03373-3 #### [facility] ([id number]) [address] [place] [address] 13800 WBC (Bld) [#/Vol] 11.0 10*3/uL Normal 4.0-11.0 [facility] Comment on above: Performed By: #### C BCA, 69605-1, CMP, 25413-1, 00811-9 #### [facility] ([id number]) [address] [place] [address] 44959 COMPREHENSIVE METABOLIC PANE Blayne 01-19-2024 Albumin [Mass/Vol] 2.9 g/dL Low 3.2-5.3 [facility] Comment on above: Performed By: #### C BCA, 63549-5, CMP, 41022-1, 99199-2 #### [facility] ([id number]) [address] [place] [address] 43796 ALP [Catalytic activity/Vol] 112 U/L Normal 39-130 [facility] Comment on above: Performed By: #### C BCA, 14075-9, CMP, 56697-5, 93104-8 #### [facility] ([id number]) [address] [place] [address] 61092 ALT [Catalytic activity/Vol] 21 U/L Normal 0-31 [facility] Comment on above: Performed By: #### C BCA, 92363-5, CMP, 28202-9, 59804-7 #### [facility] ([id number]) [address] [place] [address] 12653 Anion gap [Moles/Vol] 9 mmol/L Normal 5-15 [facility] Comment on above: Performed By: #### C BCA, 34511-2, CMP, 54276-1, 42400-9 #### [facility] ([id number]) [address] [place] [address] 27222 AST [Catalytic activity/Vol] 16 U/L Normal 0-41 [facility] Comment on above: Performed By: #### C BCA, 24533-3, CMP, 85604-2, 16386-3 #### [facility] ([id number]) [address] [place] [address] 83523 Bilirubin [Mass/Vol] 0.5 mg/dL Normal 0.3-1.2 [facility] Comment on above: Performed By: #### C BCA, 76546-0, CMP, 22293-8, 69109-5 #### [facility] ([id number]) [address] [place] [address] 22648 Calcium [Mass/Vol] 8.9 mg/dL Normal 8.5-10.5 [facility] Comment on above: Performed By: #### C BCA, 22039-7, CMP, 53882-3, 61094-6 #### [facility] ([id number]) [address] [place] [address] 04998 Chloride [Moles/Vol] 98 mmol/L Normal 98-109 [facility] Comment on above: Performed By: #### C BCA, 89941-9, CMP, 43981-6, 23505-8 #### [facility] ([id number]) [address] [place] [address] 44528 CO2 [Moles/Vol] 29 mmol/L Normal 22-32 [facility] Comment on above: Performed By: #### C BCA, 04712-9, CMP, 20738-7, 09839-6 #### [facility] ([id number]) [address] [place] [address] 29825 Creatinine [Mass/Vol] 0.46 mg/dL Normal 0.40-1.00 [facility] Comment on above: Result Comment: METH OD TRACEABLE TO IDMS STANDARD Performed By: #### C BCA, 28883-7, CMP, , 85443-7 #### [facility] ([id number]) [address] [place] [address] 14493 eGFR (CKD-EPI) NON-RACE DEPENDENT >90 Normal >59 [facility] Comment on above: Result Comment: Reported eGFR is based on the CKD-EPI 2020 equation that does not use a race coefficient. Performed By: #### C BCA, 74173-1, CMP, , 97347-6 #### [facility] ([id number]) [address] [place] [address] 28954 Glucose [Mass/Vol] 168 mg/dL High 65-99 [facility] Comment on above: Performed By: #### C BCA, 62270-9, CMP, , 06874-4 #### [facility] ([id number]) [address] [place] [address] 25760 Potassium [Moles/Vol] 3.7 mmol/L Normal 3.5-5.0 [facility] Comment on above: Performed By: #### C BCA, 34120-1, CMP, 43857-5, 84715-6 #### [facility] ([id number]) [address] [place] [address] 50556 Protein [Mass/Vol] 6.2 g/dL Normal 6.0-8.0 [facility] Comment on above: Performed By: #### C BCA, 66912-1, CMP, 74565-4, 71910-8 #### [facility] ([id number]) [address] [place] [address] 24682 Sodium [Moles/Vol] 136 mmol/L Normal 134-146 [facility] Comment on above: Performed By: #### C BRITTNEY, 65804-9, CMP, 66054-5, 68571-1 #### [facility] ([id number]) [address] [place] [address] 07968 Urea nitrogen [Mass/Vol] 19 mg/dL Normal 5-27 [facility] Comment on above: Performed By: #### C BRITTNEY, 42122-7, CMP, 22811-6, 58534-5 #### [facility] ([id number]) [address] [place] [address] 14671 Glucose Glucometer (BldC) [M ass/Vol]on 01-19-2024 Glucose [Mass/Vol] 241 mg/dL High 65-99 [facility] Glucose [Mass/Vol] 203 mg/dL High 65-99 [facility] Glucose [Mass/Vol] 237 mg/dL High 65-99 [facility] MAGNESIUMon 01-19-2024 Magnesium [Mass/Vol] 2.0 mg/dL Normal 1.8-2.6 [facility] Comment on above: Performed By: #### C BRITTNEY, 91845-2, [facility], , 05973-9 #### [facility] ([id number]) [address] [place] [address] 85996 POTASSIUMon 01-19-2024 Potassium [Moles/Vol] 4.4 mmol/L Normal 3.5-5.0 [facility] Comment on above: Performed By: #### C BRITTNEY, 59927-4, CMP, , 41126-4 #### [facility] ([id number]) [address] [place] [address] 46299 URINALYSISon 01-19-2024 Bilirubin Ql (U) Negative Normal NEG [facility] Comment on above: Performed By: #### C BCA, 76334-4, CMP, 25964-9, 91836-0 #### [facility] ([id number]) [address] [place] [address] 34912 BLOOD/HGB SMALL Abnormal NEG [facility] Comment on above: Performed By: #### C BCA, 40919-8, CMP, 29886-0, 10946-7 #### [facility] ([id number]) [address] [place] [address] 55468 Color (U) YELLOW Normal YELLOW [facility] Comment on above: Performed By: #### C BCA, 93953-2, CMP, 90357-7, 71044-5 #### [facility] ([id number]) [address] [place] [address] 06437 Glucose Ql (U) >1000 Abnormal NEG [facility] Comment on above: Performed By: #### C BCA, 38968-1, CMP, 34889-0, 83796-0 #### [facility] ([id number]) [address] [place] [address] 93567 Ketones Ql (U) Negative Normal [facility] Comment on above: Performed By: #### Casey BCA, 76190-9, CMP, 93193-5, 33128-9 #### [facility] ([id number]) [address] [place] [address] 24785 Leukocyte esterase Test strip Ql (U) MODERATE Abnormal [facility] Comment on above: Result Comment: HIGH CONCENTRATIONS OF GLUCOSE MAY DECREASE THE REACTIVITY OF THE DIPSTICK LEUKOCYTE TEST PAD. Performed By: #### C BCA, 88659-4, CMP, 43940-5, 95391-5 #### [facility] ([id number]) [address] [place] [address] 17780 Nitrite Ql (U) Negative Normal NEG [facility] Comment on above: Performed By: #### Casey LUGO, 39534-1, CMP, 55531-3, 37112-9 #### [facility] ([id number]) [address] [place] [address] 83203 pH (U) 6.5 [pH] Normal 5.0-8.5 [facility] Comment on above: Performed By: #### Casey LUGO, 26879-6, CMP, 38155-4, 79322-5 #### [facility] ([id number]) [address] [place] [address] 71330 Protein Ql (U) Negative Normal NEG [facility] Comment on above: Performed By: #### Casey LUGO, 94862-3, CMP, 38254-5, 34129-5 #### [facility] ([id number]) [address] [place] [address] 50034 R.B.CELLS 10 /hpf High 0-5 [facility] Comment on above: Performed By: #### Casey LUGO, 75277-4, CMP, 83636-7, 06379-6 #### [facility] ([id number]) [address] [place] [address] 17063 Specific gravity (U) [Rel density] 1.010 Normal 1.003-1.035 [facility] Comment on above: Performed By: #### Casey LUGO, 06148-8, CMP, 08132-5, 00214-0 #### [facility] ([id number]) [address] [place] [address] 69207 SQUAMOUS EPITHELIUM 4 /hpf Normal 0-5 [facility] Comment on above: Performed By: #### Casey LUGO, 69702-5, CMP, 71582-6, 30252-1 #### [facility] ([id number]) [address] [place] [address] 64301 TRANSITIONAL EPITH 1 /hpf High 0 [facility] Comment on above: Performed By: #### C BRITTNEY, 75542-9, CMP, 74453-6, 87778-3 #### [facility] ([id number]) [address] [place] [address] 87881 TURBIDITY CLOUDY Abnormal CLEAR [facility] Comment on above: Performed By: #### Casey LUGO, 64518-0, CMP, 55538-2, 82112-8 #### [facility] ([id number]) [address] [place] [address] 42570 Urobilinogen Qn (U) 0.2 {Beau'U}/dL Normal <1.1 [facility] Comment on above: Performed By: #### Casey LUGO, 82889-9, CMP, 28002-3, 46529-2 #### [facility] ([id number]) [address] [place] [address] 20869 W.B.CELLS >100 High 0-5 [facility] Comment on above: Performed By: #### Casey LUGO, 34416-1, CMP, , 61452-8 #### [facility] [facility] ([id number]) [address] [place] [address] 52377 URINE CULTUREon 01-19-2024 Bacteria identified Cx Nom (U) CULTURE RESULTS 50-100,000 ORGANISMS/ML NORMAL UROGENITAL AMILCAR Normal [facility] Comment on above: Performed By: #### Casey LUGO, 82087-8, CMP, 64302-7, 97680-9 #### [facility] ([id number]) [address] [place] [address] 90212 CBC AND AUTO DIFFon 01-18-20 24 ABSOLUTE BASOPHIL 0.0 X10E9/L Normal 0.0-0.2 [facility] Comment on above: Performed By: #### Casey LUGO, 65045-9, CMP, , 66967-8 #### [facility] ([id number]) [address] [place] [address] 67980 ABSOLUTE NEUTROPHIL 8.3 X10E9/L High 1.5-6.6 [facility] Comment on above: Performed By: #### Casey LUGO, 75960-8, CMP, , 30539-2 #### [facility] ([id number]) [address] [place] [address] 27859 Basophils/100 WBC (Bld) 0.3 % Normal [facility] Comment on above: Performed By: #### Casey LUGO, 80963-7, CMP, , 30047-2 #### [facility] ([id number]) [address] [place] [address] 82924 Eosinophils (Bld) [#/Vol] 0.3 10*3/uL Normal 0.0-0.4 [facility] Comment on above: Performed By: #### Casey LUGO, 22145-5, CMP, , 87143-7 #### [facility] ([id number]) [address] [place] [address] 08808 Eosinophils/100 WBC (Bld) 2.1 % Normal [facility] Comment on above: Performed By: #### Casey LUGO, 77205-9, CMP, , 72384-7 #### [facility] ([id number]) [address] [place] [address] 33851 Erythrocyte distribution width (RBC) [Ratio] 13.6 % Normal 11.5-15.0 [facility] Comment on above: Performed By: #### Casey LUGO, 72006-8, CMP, 71250-8, 42187-3 #### [facility] ([id number]) [address] [place] [address] 29060 Hematocrit (Bld) [Volume fraction] 54.5 % High 35-47 [facility] Comment on above: Performed By: #### Casey LUGO, 89134-3, CMP, 88625-3, 89993-9 #### [facility] ([id number]) [address] [place] [address] 45231 Hemoglobin (Bld) [Mass/Vol] 18.1 g/dL High 11.7-15.5 [facility] Comment on above: Performed By: #### Casey LUGO, 87144-2, CMP, 62447-5, 78962-2 #### [facility] ([id number]) [address] [place] [address] 37383 Lymphocytes (Bld) [#/Vol] 2.4 10*3/uL Normal 1.0-3.5 [facility] Comment on above: Performed By: #### Casey LUGO, 08863-6, CMP, , 61103-4 #### [facility] ([id number]) [address] [place] [address] 03186 Lymphocytes/100 WBC (Bld) 20.1 % Normal [facility] Comment on above: Performed By: #### Casey LUGO, 81000-4, CMP, 93755-1, 10545-2 #### [facility] ([id number]) [address] [place] [address] 21631 MCH (RBC) [Entitic mass] 31.3 pg Normal 27-34 [facility] Comment on above: Performed By: #### Casey LUGO, 53847-7, CMP, 05365-0, 58450-6 #### [facility] ([id number]) [address] [place] [address] 13855 MCHC (RBC) [Mass/Vol] 33.2 g/dL Normal 32-36 [facility] Comment on above: Performed By: #### Casey LUGO, 95189-0, CMP, 26088-4, 09344-9 #### [facility] ([id number]) [address] [place] [address] 10629 MCV (RBC) [Entitic vol] 94 fL Normal 80-100 [facility] Comment on above: Performed By: #### Casey LUGO, 06599-4, CMP, 41854-5, 38779-3 #### [facility] ([id number]) [address] [place] [address] 18083 Monocytes (Bld) [#/Vol] 0.8 10*3/uL Normal 0-0.9 [facility] Comment on above: Performed By: #### Casey LUGO, 90392-2, CMP, 33911-9, 35893-7 #### [facility] ([id number]) [address] [place] [address] 01147 Monocytes/100 WBC (Bld) 7.1 % Normal [facility] Comment on above: Performed By: #### Casey LUGO, 57821-1, CMP, 19226-4, 90735-4 #### [facility] ([id number]) [address] [place] [address] 46236 Neutrophils/100 WBC (Bld) 70.4 % Normal [facility] Comment on above: Performed By: #### Casey LUGO, 31332-6, CMP, 94293-0, 77536-2 #### [facility] ([id number]) [address] [place] [address] 03069 Platelet mean volume (Bld) [Entitic vol] 10.1 fL Normal 7-12 [facility] Comment on above: Performed By: #### Casey LUGO, 45499-9, CMP, 64122-9, 19856-6 #### [facility] ([id number]) [address] [place] [address] 96843 Platelets (Bld) [#/Vol] 279 10*3/uL Normal 150-450 [facility] Comment on above: Performed By: #### C BCA, 54166-6, CMP, 05738-3, 19886-4 #### [facility] ([id number]) [address] [place] [address] 70896 RBC COUNT 5.78 X10E12/L High 3.80-5.20 [facility] Comment on above: Performed By: #### C BCA, 90461-4, CMP, 81253-9, 06882-3 #### [facility] ([id number]) [address] [place] [address] 93191 WBC (Bld) [#/Vol] 11.8 10*3/uL High 4.0-11.0 [facility] Comment on above: Performed By: #### C BCA, 02793-3, CMP, 22445-4, 43796-6 #### [facility] ([id number]) [address] [place] [address] 73014 COMPREHENSIVE METABOLIC PANE Blayne 01-18-2024 Albumin [Mass/Vol] 3.5 g/dL Normal 3.2-5.3 [facility] Comment on above: Performed By: #### C BCA, 85843-5, CMP, 44432-3, 53277-4 #### [facility] ([id number]) [address] [place] [address] 68984 ALP [Catalytic activity/Vol] 115 U/L Normal 39-130 [facility] Comment on above: Performed By: #### C BCA, 26998-2, CMP, 63334-1, 52871-0 #### [facility] ([id number]) [address] [place] [address] 08035 ALT [Catalytic activity/Vol] 25 U/L Normal 0-31 [facility] Comment on above: Performed By: #### C BCA, 20161-4, CMP, 86559-5, 01969-0 #### [facility] ([id number]) [address] [place] [address] 74166 Anion gap [Moles/Vol] 8 mmol/L Normal 5-15 [facility] Comment on above: Performed By: #### C BCA, 66786-1, CMP, 13798-2, 88306-7 #### [facility] ([id number]) [address] [place] [address] 97238 AST [Catalytic activity/Vol] 23 U/L Normal 0-41 [facility] Comment on above: Performed By: #### C BCA, 76340-8, CMP, 40414-7, 58718-2 #### [facility] ([id number]) [address] [place] [address] 15175 Bilirubin [Mass/Vol] 0.7 mg/dL Normal 0.3-1.2 [facility] Comment on above: Performed By: #### C BCA, 32505-2, CMP, 87241-9, 98404-6 #### [facility] ([id number]) [address] [place] [address] 31345 Calcium [Mass/Vol] 9.2 mg/dL Normal 8.5-10.5 [facility] Comment on above: Performed By: #### C BCA, 02702-6, CMP, 49726-6, 60155-6 #### [facility] ([id number]) [address] [place] [address] 50880 Chloride [Moles/Vol] 98 mmol/L Normal 98-109 [facility] Comment on above: Performed By: #### C BCA, 77266-1, CMP, 19536-9, 59449-2 #### [facility] ([id number]) [address] [place] [address] 51591 CO2 [Moles/Vol] 32 mmol/L Normal 22-32 [facility] Comment on above: Performed By: #### C BCA, 11935-2, CMP, 27194-4, 37919-2 #### [facility] ([id number]) [address] [place] [address] 21173 Creatinine [Mass/Vol] 0.56 mg/dL Normal 0.40-1.00 [facility] Comment on above: Result Comment: METH OD TRACEABLE TO IDMS STANDARD Performed By: #### C BCA, 50117-0, CMP, 97719-0, 74295-7 #### [facility] ([id number]) [address] [place] [address] 31314 eGFR (CKD-EPI) NON-RACE DEPENDENT >90 Normal >59 [facility] Comment on above: Result Comment: Reported eGFR is based on the CKD-EPI 2020 equation that does not use a race coefficient. Performed By: #### C BCA, 97408-0, CMP, 75006-3, 32675-4 #### [facility] ([id number]) [address] [place] [address] 99555 Glucose [Mass/Vol] 113 mg/dL High 65-99 [facility] Comment on above: Performed By: #### C BCA, 71277-5, CMP, 86666-0, 63531-0 #### [facility] ([id number]) [address] [place] [address] 76816 Potassium [Moles/Vol] 3.4 mmol/L Low 3.5-5.0 [facility] Comment on above: Performed By: #### C BCA, 72929-4, CMP, 96258-7, 15511-7 #### [facility] ([id number]) [address] [place] [address] 08969 Protein [Mass/Vol] 7.2 g/dL Normal 6.0-8.0 [facility] Comment on above: Performed By: #### C BRITTNEY, 51028-1, CMP, 74053-8, 37834-8 #### [facility] ([id number]) [address] [place] [address] 54959 Sodium [Moles/Vol] 138 mmol/L Normal 134-146 [facility] Comment on above: Performed By: #### Casey LUGO, 78902-2, CMP, , 17089-8 #### [facility] ([id number]) [address] [place] [address] 76797 Urea nitrogen [Mass/Vol] 14 mg/dL Normal 5-27 [facility] Comment on above: Performed By: #### Casey LUGO, 39580-9, CMP, , 06980-4 #### [facility] ([id number]) [address] [place] [address] 47555 Glucose Glucometer (dC) [M ass/Vol]on 01-18-2024 Glucose [Mass/Vol] 256 mg/dL High 65-99 [facility] Glucose [Mass/Vol] 235 mg/dL High 65-99 [facility] Glucose [Mass/Vol] 302 mg/dL High 65-99 [facility] Glucose [Mass/Vol] 108 mg/dL High 65-99 [facility] MAGNESIUMon 01-18-2024 Magnesium [Mass/Vol] 2.1 mg/dL Normal 1.8-2.6 [facility] Comment on above: Performed By: #### C BRITTNEY, 60126-9, CMP, 51741-1, 45731-1 #### [facility] ([id number]) [address] [place] [address] 62822 POTASSIUMon 01-18-2024 Potassium [Moles/Vol] 4.7 mmol/L Normal 3.5-5.0 [facility] Comment on above: Performed By: #### Casey LUGO, 43428-6, CMP, 66313-2, 87746-7 #### [facility] ([id number]) [address] [place] [address] 74445 CBC AND AUTO DIFFon 01-17-20 24 ABSOLUTE BASOPHIL 0.0 X10E9/L Normal 0.0-0.2 [facility] Comment on above: Performed By: #### Casey BCA, 43717-9, CMP, 37629-3, 94662-8 #### [facility] ([id number]) [address] [place] [address] 18909 ABSOLUTE NEUTROPHIL 6.1 X10E9/L Normal 1.5-6.6 [facility] Comment on above: Performed By: #### Casey LUGO, 86841-5, CMP, 40775-0, 72029-9 #### [facility] ([id number]) [address] [place] [address] 85696 Basophils/100 WBC (Bld) 0.4 % Normal [facility] Comment on above: Performed By: #### Casey BCA, 59113-1, CMP, 80333-6, 91007-0 #### [facility] ([id number]) [address] [place] [address] 80647 Eosinophils (Bld) [#/Vol] 0.3 10*3/uL Normal 0.0-0.4 [facility] Comment on above: Performed By: #### Casey BCA, 22317-0, CMP, 91797-9, 74954-7 #### [facility] ([id number]) [address] [place] [address] 51192 Eosinophils/100 WBC (Bld) 2.7 % Normal [facility] Comment on above: Performed By: #### Casey BCA, 78864-4, CMP, 58893-1, 93932-7 #### [facility] ([id number]) [address] [place] [address] 40837 Erythrocyte distribution width (RBC) [Ratio] 13.6 % Normal 11.5-15.0 [facility] Comment on above: Performed By: #### Casey LUGO, 30064-2, CMP, 43026-1, 67006-1 #### [facility] ([id number]) [address] [place] [address] 69625 Hematocrit (Bld) [Volume fraction] 50.3 % High 35-47 [facility] Comment on above: Performed By: #### Casey LUGO, 29961-6, CMP, 12006-7, 19850-8 #### [facility] ([id number]) [address] [place] [address] 09610 Hemoglobin (Bld) [Mass/Vol] 16.9 g/dL High 11.7-15.5 [facility] Comment on above: Performed By: #### Casey LUGO, 23206-9, [facility], , 12316-7 #### [facility] ([id number]) [address] [place] [address] 95792 Lymphocytes (Bld) [#/Vol] 2.5 10*3/uL Normal 1.0-3.5 [facility] Comment on above: Performed By: #### Casey LUGO, 99264-4, [facility], 14933-3, 96486-5 #### [facility] ([id number]) [address] [place] [address] 50596 Lymphocytes/100 WBC (Bld) 25.5 % Normal [facility] Comment on above: Performed By: #### Casey LUGO, 56938-1, CMP, 60616-4, 40038-3 #### [facility] ([id number]) [address] [place] [address] 61591 MCH (RBC) [Entitic mass] 31.5 pg Normal 27-34 [facility] Comment on above: Performed By: #### Casey LUGO, 98985-3, CMP, 94097-9, 43938-7 #### [facility] ([id number]) [address] [place] [address] 29998 MCHC (RBC) [Mass/Vol] 33.7 g/dL Normal 32-36 [facility] Comment on above: Performed By: #### Casey LUGO, 05743-8, CMP, 41901-9, 29555-3 #### [facility] ([id number]) [address] [place] [address] 81634 MCV (RBC) [Entitic vol] 94 fL Normal 80-100 [facility] Comment on above: Performed By: #### Casey LUGO, 23478-3, CMP, 22377-7, 28417-9 #### [facility] ([id number]) [address] [place] [address] 63207 Monocytes (Bld) [#/Vol] 0.9 10*3/uL Normal 0-0.9 [facility] Comment on above: Performed By: #### Casey LUGO, 75362-2, CMP, 66882-2, 72025-6 #### [facility] ([id number]) [address] [place] [address] 00381 Monocytes/100 WBC (Bld) 8.8 % Normal [facility] Comment on above: Performed By: #### Casey LUGO, 53642-0, CMP, 01265-9, 21804-3 #### [facility] ([id number]) [address] [place] [address] 55678 Neutrophils/100 WBC (Bld) 62.6 % Normal [facility] Comment on above: Performed By: #### Casey LUGO, 62945-3, CMP, 89343-3, 23470-6 #### [facility] ([id number]) [address] [place] [address] 89322 Platelet mean volume (Bld) [Entitic vol] 9.3 fL Normal 7-12 [facility] Comment on above: Performed By: #### Casey LUGO, 64311-7, CMP, 48508-1, 42452-4 #### [facility] ([id number]) [address] [place] [address] 11027 Platelets (Bld) [#/Vol] 243 10*3/uL Normal 150-450 [facility] Comment on above: Performed By: #### Casey LUGO, 60674-3, CMP, 89858-7, 66651-2 #### [facility] ([id number]) [address] [place] [address] 62593 RBC COUNT 5.38 X10E12/L High 3.80-5.20 [facility] Comment on above: Performed By: #### Casey LUGO, 63946-5, CMP, 78397-4, 71343-8 #### [facility] ([id number]) [address] [place] [address] 03273 WBC (Bld) [#/Vol] 9.8 10*3/uL Normal 4.0-11.0 [facility] Comment on above: Performed By: #### Casey LUGO, 61637-6, CMP, 26190-3, 66904-0 #### [facility] ([id number]) [address] [place] [address] 56469 COMPREHENSIVE METABOLIC PANE Blayne 01-17-2024 Albumin [Mass/Vol] 3.1 g/dL Low 3.2-5.3 [facility] Comment on above: Performed By: #### Casey LUGO, 88719-3, CMP, 02875-6, 34654-9 #### [facility] ([id number]) [address] [place] [address] 44789 ALP [Catalytic activity/Vol] 101 U/L Normal 39-130 [facility] Comment on above: Performed By: #### C BCA, 91163-8, CMP, 63698-4, 02892-8 #### [facility] ([id number]) [address] [place] [address] 42912 ALT [Catalytic activity/Vol] 17 U/L Normal 0-31 [facility] Comment on above: Performed By: #### C BCA, 73125-0, CMP, 52149-1, 62646-4 #### [facility] ([id number]) [address] [place] [address] 92341 Anion gap [Moles/Vol] 8 mmol/L Normal 5-15 [facility] Comment on above: Performed By: #### C BCA, 93969-9, CMP, 65894-6, 54304-1 #### [facility] ([id number]) [address] [place] [address] 74909 AST [Catalytic activity/Vol] 18 U/L Normal 0-41 [facility] Comment on above: Performed By: #### C BCA, 60697-5, CMP, 69745-5, 32416-9 #### [facility] ([id number]) [address] [place] [address] 88617 Bilirubin [Mass/Vol] 1.0 mg/dL Normal 0.3-1.2 [facility] Comment on above: Performed By: #### C BCA, 53341-1, CMP, 57252-1, 18316-9 #### [facility] ([id number]) [address] [place] [address] 13653 Calcium [Mass/Vol] 8.4 mg/dL Low 8.5-10.5 [facility] Comment on above: Performed By: #### C BCA, 35411-8, CMP, 38645-1, 21659-3 #### [facility] ([id number]) [address] [place] [address] Chloride [Moles/Vol] 95 mmol/L Low 98-109 [facility] Comment on above: Performed By: #### C BRITTNEY, 07298-5, CMP, 85910-1, 42307-1 #### [facility] ([id number]) [address] [place] [address] 72061 CO2 [Moles/Vol] 30 mmol/L Normal 22-32 [facility] Comment on above: Performed By: #### C BRITTNEY, 11841-5, CMP, 24022-7, 23475-9 #### [facility] ([id number]) [address] [place] [address] 48316 Creatinine [Mass/Vol] 0.63 mg/dL Normal 0.40-1.00 [facility] Comment on above: Result Comment: METH OD TRACEABLE TO IDMS STANDARD Performed By: #### C BRITTNEY, 99186-1, [facility], 90171-3, 26630-8 #### [facility] ([id number]) [address] [place] [address] 96872 eGFR (CKD-EPI) NON-RACE DEPENDENT >90 Normal >59 [facility] Comment on above: Result Comment: Reported eGFR is based on the CKD-EPI 2020 equation that does not use a race coefficient. Performed By: #### C BRITTNEY, 42958-3, [facility], 46474-1, 02543-3 #### [facility] ([id number]) [address] [place] [address] 87348 Glucose [Mass/Vol] 229 mg/dL High 65-99 [facility] Comment on above: Performed By: #### C BRITTNEY, 69716-1, CMP, 13854-8, 94814-2 #### [facility] ([id number]) [address] [place] [address] 20191 Potassium [Moles/Vol] 2.8 mmol/L Low 3.5-5.0 [facility] Comment on above: Performed By: #### C BCA, 48825-5, CMP, 82372-8, 76895-1 #### [facility] ([id number]) [address] [place] [address] 75720 Protein [Mass/Vol] 6.5 g/dL Normal 6.0-8.0 [facility] Comment on above: Performed By: #### C BCA, 15648-0, CMP, 28169-0, 97582-1 #### [facility] ([id number]) [address] [place] [address] 51265 Sodium [Moles/Vol] 133 mmol/L Low 134-146 [facility] Comment on above: Performed By: #### C BRITTNEY, 96772-9, CMP, 72801-6, 42635-9 #### [facility] ([id number]) [address] [place] [address] 95604 Urea nitrogen [Mass/Vol] 9 mg/dL Normal 5-27 [facility] Comment on above: Performed By: #### C BRITTNEY, 39852-8, CMP, , 34492-1 #### [facility] ([id number]) [address] [place] [address] 09146 Glucose Glucometer (BldC) [M ass/Vol]on 01-17-2024 Glucose [Mass/Vol] 406 mg/dL Critically high 65-99 [facility] Glucose [Mass/Vol] 296 mg/dL High 65-99 [facility] Glucose [Mass/Vol] 302 mg/dL High 65-99 [facility] MAGNESIUMon 01-17-2024 Magnesium [Mass/Vol] 2.1 mg/dL Normal 1.8-2.6 [facility] Comment on above: Performed By: #### C BCA, 82418-7, CMP, , 49496-2 #### [facility] ([id number]) [address] [place] [address] 94427 POTASSIUMon 01-17-2024 Potassium [Moles/Vol] 3.7 mmol/L Normal 3.5-5.0 [facility] Comment on above: Performed By: #### C BRITTNEY, 11977-4, CMP, 55137-8, 07796-3 #### [facility] ([id number]) [address] [place] [address] 39882 URINE CULTUREon 01-17-2024 Bacteria identified Cx Nom (U) CULTURE RESULTS 10-50,000 ORGANISMS/mL NORMAL UROGENITAL AMILCAR Normal [facility] Comment on above: Performed By: #### C BRITTNEY, 12519-2, CMP, 86995-5, 06224-0 #### [facility] ([id number]) [address] [place] [address] 55233 CBC AND AUTO DIFFon 01-16-20 24 ABSOLUTE BASOPHIL 0.0 X10E9/L Normal 0.0-0.2 [facility] Comment on above: Performed By: #### C BRITTNEY, 71138-9, CMP, 76269-0, 41854-8 #### [facility] ([id number]) [address] [place] [address] 68531 ABSOLUTE NEUTROPHIL 10.0 X10E9/L High 1.5-6.6 [facility] Comment on above: Performed By: #### C BCA, 48503-9, CMP, 67639-4, 38247-8 #### [facility] ([id number]) [address] [place] [address] 11880 Basophils/100 WBC (Bld) 0.3 % Normal [facility] Comment on above: Performed By: #### Casey BCA, 65939-5, CMP, 21241-2, 97588-9 #### [facility] ([id number]) [address] [place] [address] Eosinophils (Bld) [#/Vol] 0.1 10*3/uL Normal 0.0-0.4 [facility] Comment on above: Performed By: #### Casey LUGO, 21514-7, CMP, 91315-4, 25306-6 #### [facility] ([id number]) [address] [place] [address] 86367 Eosinophils/100 WBC (Bld) 0.9 % Normal [facility] Comment on above: Performed By: #### Casey LUGO, 54391-5, [facility], 14709-5, 34192-8 #### [facility] ([id number]) [address] [place] [address] 38666 Erythrocyte distribution width (RBC) [Ratio] 13.5 % Normal 11.5-15.0 [facility] Comment on above: Performed By: #### Casey LUGO, 59618-8, [facility], 87415-2, 67617-9 #### [facility] ([id number]) [address] [place] [address] 93759 Hematocrit (Bld) [Volume fraction] 49.5 % High 35-47 [facility] Comment on above: Performed By: #### Casey LUGO, 59230-5, [facility], 81295-4, 49377-9 #### [facility] ([id number]) [address] [place] [address] 11739 Hemoglobin (Bld) [Mass/Vol] 16.8 g/dL High 11.7-15.5 [facility] Comment on above: Performed By: #### Casey LUGO, 24369-7, [facility], 42242-7, 10745-7 #### [facility] ([id number]) [address] [place] [address] 15162 Lymphocytes (Bld) [#/Vol] 1.9 10*3/uL Normal 1.0-3.5 [facility] Comment on above: Performed By: #### Casey LUGO, 32295-9, CMP, 34052-6, 73111-6 #### [facility] ([id number]) [address] [place] [address] 12879 Lymphocytes/100 WBC (Bld) 14.4 % Normal [facility] Comment on above: Performed By: #### Casey LUGO, 15804-8, CMP, 97695-9, 47319-9 #### [facility] ([id number]) [address] [place] [address] 17230 MCH (RBC) [Entitic mass] 31.7 pg Normal 27-34 [facility] Comment on above: Performed By: #### Casey LUGO, 29534-6, CMP, 01805-2, 49500-2 #### [facility] ([id number]) [address] [place] [address] 06695 MCHC (RBC) [Mass/Vol] 33.9 g/dL Normal 32-36 [facility] Comment on above: Performed By: #### Casey LUGO, 29588-3, CMP, 08872-1, 11490-4 #### [facility] ([id number]) [address] [place] [address] 95750 MCV (RBC) [Entitic vol] 94 fL Normal 80-100 [facility] Comment on above: Performed By: #### Casey LUGO, 97537-2, CMP, 39345-0, 67799-1 #### [facility] ([id number]) [address] [place] [address] 16329 Monocytes (Bld) [#/Vol] 1.1 10*3/uL High 0-0.9 [facility] Comment on above: Performed By: #### Casey LUGO, 85311-6, CMP, 06864-5, 73749-6 #### [facility] ([id number]) [address] [place] [address] 19468 Monocytes/100 WBC (Bld) 8.6 % Normal [facility] Comment on above: Performed By: #### Casey LUGO, 08396-2, CMP, 88397-9, 65351-1 #### [facility] ([id number]) [address] [place] [address] 02906 Neutrophils/100 WBC (Bld) 75.8 % Normal [facility] Comment on above: Performed By: #### Casey LUGO, 73317-6, CMP, 75162-1, 46750-7 #### [facility] ([id number]) [address] [place] [address] 24606 Platelet mean volume (Bld) [Entitic vol] 9.3 fL Normal 7-12 [facility] Comment on above: Performed By: #### Casey LUGO, 71458-5, CMP, 44434-0, 33465-0 #### [facility] ([id number]) [address] [place] [address] 93680 Platelets (Bld) [#/Vol] 254 10*3/uL Normal 150-450 [facility] Comment on above: Performed By: #### Casey LUGO, 27915-0, CMP, 53913-1, 35386-9 #### [facility] ([id number]) [address] [place] [address] 94306 RBC COUNT 5.29 X10E12/L High 3.80-5.20 [facility] Comment on above: Performed By: #### Casey LUGO, 70066-8, CMP, 08931-6, 49084-2 #### [facility] ([id number]) [address] [place] [address] 60957 WBC (Bld) [#/Vol] 13.2 10*3/uL High 4.0-11.0 [facility] Comment on above: Performed By: #### C [facility], 31349-3, CMP, 09559-2, 99328-7 #### [facility] ([id number]) [address] [place] [address] 66194 COMPREHENSIVE METABOLIC PANE [place] 01-16-2024 Albumin [Mass/Vol] 3.5 g/dL Normal 3.2-5.3 [facility] Comment on above: Performed By: #### C BCA, 54918-1, CMP, 35535-5, 96874-1 #### [facility] ([id number]) [address] [place] [address] 71487 ALP [Catalytic activity/Vol] 106 U/L Normal 39-130 [facility] Comment on above: Performed By: #### C BCA, 16326-2, CMP, 43232-9, 69330-6 #### [facility] ([id number]) [address] [place] [address] 15052 ALT [Catalytic activity/Vol] 15 U/L Normal 0-31 [facility] Comment on above: Performed By: #### C BCA, 11019-0, CMP, 95677-0, 91348-3 #### [facility] ([id number]) [address] [place] [address] 48793 Anion gap [Moles/Vol] 10 mmol/L Normal 5-15 [facility] Comment on above: Performed By: #### C BCA, 34999-6, CMP, 97603-6, 38465-5 #### [facility] ([id number]) [address] [place] [address] 81073 AST [Catalytic activity/Vol] 13 U/L Normal 0-41 [facility] Comment on above: Performed By: #### C BCA, 90475-3, CMP, 10095-0, 15148-4 #### [facility] ([id number]) [address] [place] [address] 80137 Bilirubin [Mass/Vol] 0.7 mg/dL Normal 0.3-1.2 [facility] Comment on above: Performed By: #### C BCA, 16204-0, CMP, 03591-6, 03274-1 #### [facility] ([id number]) [address] [place] [address] 86242 Calcium [Mass/Vol] 8.4 mg/dL Low 8.5-10.5 [facility] Comment on above: Performed By: #### C BCA, 56640-3, CMP, 62734-8, 06734-3 #### [facility] ([id number]) [address] [place] [address] 82158 Chloride [Moles/Vol] 92 mmol/L Low 98-109 [facility] Comment on above: Performed By: #### C BCA, 28039-4, CMP, 41914-5, 62511-5 #### [facility] ([id number]) [address] [place] [address] 15533 CO2 [Moles/Vol] 28 mmol/L Normal 22-32 [facility] Comment on above: Performed By: #### Casey BCA, 01677-3, CMP, 73475-6, 56787-3 #### [facility] ([id number]) [address] [place] [address] 76766 Creatinine [Mass/Vol] 0.77 mg/dL Normal 0.40-1.00 [facility] Comment on above: Result Comment: METH OD TRACEABLE TO IDMS STANDARD Performed By: #### C BCA, 21296-0, CMP, 30010-6, 44659-5 #### [facility] ([id number]) [address] [place] [address] 21716 GFR/1.73 sq M.predicted among non-blacks MDRD (S/P/Bld) [Vol rate/Area] 86 mL/min/{1.73_m2} Normal >59 [facility] Comment on above: Result Comment: Reported eGFR is based on the CKD-EPI 2020 equation that does not use a race coefficient. Performed By: #### C BRITTNEY, 39943-4, CMP, 65699-6, 00426-3 #### [facility] ([id number]) [address] [place] [address] 80895 Glucose [Mass/Vol] 512 mg/dL Critically high 65-99 [facility] Comment on above: Performed By: #### C BRITTNYE, 70900-2, [facility], , 31167-0 #### [facility] ([id number]) [address] [place] [address] 42803 Potassium [Moles/Vol] 2.8 mmol/L Low 3.5-5.0 [facility] Comment on above: Performed By: #### C BRITTNEY, 12957-9, [facility], , 53690-7 #### [facility] ([id number]) [address] [place] [address] 54937 Protein [Mass/Vol] 6.8 g/dL Normal 6.0-8.0 [facility] Comment on above: Performed By: #### Casey LUGO, 94990-0, [facility], , 24803-5 #### [facility] ([id number]) [address] [place] [address] 39138 Sodium [Moles/Vol] 130 mmol/L Low 134-146 [facility] Comment on above: Performed By: #### C BRITTNEY, 59378-5, CMP, , 97540-1 #### [facility] ([id number]) [address] [place] [address] 06699 Urea nitrogen [Mass/Vol] 8 mg/dL Normal 5-27 [facility] Comment on above: Performed By: #### C BRITTNEY, 28682-1, [facility], 22887-5, 21005-7 #### [facility] ([id number]) [address] [place] [address] BRAIN WO CONTon CT BRAIN WO [...] IMPRESSION: No acute intracranial finding Finalized by Alejandor Jones MD on 01/16/2024 2:11 PM Normal [facility] Glucose Glucometer (BldC) [M ass/Vol]on 01-16-2024 Glucose [Mass/Vol] 254 mg/dL High 65-99 [facility] Glucose [Mass/Vol] 265 mg/dL High 65-99 [facility] Glucose [Mass/Vol] 381 mg/dL High 65-99 [facility] Glucose [Mass/Vol] 373 mg/dL High 65-99 [facility] MAGNESIUMon 01-16-2024 Magnesium [Mass/Vol] 2.0 mg/dL Normal 1.8-2.6 [facility] Comment on above: Performed By: #### C BRITTNEY, 87904-4, [facility], 53858-5, 38670-9 #### [facility] ([id number]) [address] [place] [address] 83784 Procalcitonin IA [Mass/Vol]o n 01-16-2024 PROCALCITONIN 0.07 ng/mL High <0.05 [facility] Comment on above: Result Comment: NOTE <0.50 ng/mL - Low risk of severe sepsis and/or septic shock. <2.00 ng/mL - Recommend retesting within 6-24 hours. >2.00 ng/mL - High risk of sepsis and/or septic shock. Performed By: #### C BRITTNEY, 12815-2, CMP, 51370-1, 93060-1 #### [facility] ([id number]) [address] [place] [address] 39992 Troponin I.cardiac High sens itivity method [Mass/Vol]on 01-16-2024 1 HOUR TROP I, HIGH SENSITIVITY 5 ng/L Normal <16 [facility] Comment on above: Performed By: #### 8 9579-7 #### [facility] ([id number]) [address] [place] [address] 63691 TROPONIN I, HIGH SENSITIVITY 5 ng/L Normal <16 [facility] Comment on above: Performed By: #### C BRITTNEY, 01820-7, CMP, 72710-0, 10867-5 #### [facility] ([id number]) [address] [place] [address] 12478 URINALYSISon 01-16-2024 Bilirubin Ql (U) Negative Normal NEG [facility] Comment on above: Performed By: #### C BRITTNEY, 48777-2, CMP, 77406-9, 87419-1 #### [facility] ([id number]) [address] [place] [address] 59012 BLOOD/HGB Trace Abnormal NEG [facility] Comment on above: Performed By: #### C BRITTNEY, 16455-2, CMP, 50629-2, 91263-6 #### [facility] ([id number]) [address] [place] [address] 33526 Color (U) YELLOW Normal YELLOW [facility] Comment on above: Performed By: #### C BCA, 68172-3, CMP, 83669-2, 47703-2 #### [facility] ([id number]) [address] [place] [address] 87239 Glucose Ql (U) >1000 Abnormal NEG [facility] Comment on above: Performed By: #### C BCA, 03649-0, CMP, 53888-4, 21481-7 #### [facility] ([id number]) [address] [place] [address] [place] [address] Ketones Ql (U) Negative Normal NEG [facility] Comment on above: Performed By: #### Casey BCA, 93968-8, CMP, 35137-3, 78186-8 #### [facility] ([id number]) [address] [place] [address] 62746 Leukocyte esterase Test strip Ql (U) Negative Normal NEG [facility] Comment on above: Result Comment: HIGH CONCENTRATIONS OF GLUCOSE MAY DECREASE THE REACTIVITY OF THE DIPSTICK LEUKOCYTE TEST PAD. Performed By: #### C BCA, 22580-6, CMP, 07286-3, 79644-3 #### [facility] ([id number]) [address] [place] [address] 49996 Nitrite Ql (U) Negative Normal [facility] Comment on above: Performed By: #### Casey BCA, 79507-7, CMP, 13831-1, 60807-3 #### [facility] ([id number]) [address] [place] [address] 80692 pH (U) 6.0 [pH] Normal 5.0-8.5 [facility] Comment on above: Performed By: #### Casey BCA, 77848-4, CMP, 71003-9, 35776-5 #### [facility] ([id number]) [address] [place] [address] 20526 Protein Ql (U) Negative Normal NEG [facility] Comment on above: Performed By: #### Casey LUGO, 76708-1, CMP, 65962-1, 32758-1 #### [facility] ([id number]) [address] [place] [address] 04223 R.B.CELLS 6 /hpf High 0-5 [facility] Comment on above: Performed By: #### Casey LUGO, 83388-2, CMP, 79225-3, 70302-4 #### [facility] ([id number]) [address] [place] [address] 72433 Specific gravity (U) [Rel density] <1.005 Normal 1.003-1.035 [facility] Comment on above: Performed By: #### Casey LUGO, 88986-3, CMP, 69417-8, 22001-3 #### [facility] ([id number]) [address] [place] [address] 01286 SQUAMOUS EPITHELIUM 2 /hpf Normal 0-5 [facility] Comment on above: Performed By: #### Casey LUGO, 44332-4, CMP, 82741-0, 64956-8 #### [facility] ([id number]) [address] [place] [address] 28919 TURBIDITY CLEAR Normal CLEAR [facility] Comment on above: Performed By: #### Casey LUGO, 62419-5, CMP, 93521-0, 88859-3 #### [facility] ([id number]) [address] [place] [address] 82553 Urobilinogen Qn (U) 0.2 {Beau'U}/dL Normal <1.1 [facility] Comment on above: Performed By: #### Casey LUGO, 73853-6, CMP, 63000-8, 92768-9 #### [facility] ([id number]) [address] [place] [address] 24763 W.B.CELLS 2 /hpf Normal 0-5 [facility] Comment on above: Performed By: #### C BCA, 77456-5, CMP, 38872-5, 37347-8 #### [facility] ([id number]) [address] [place] [address] 03913 URN MACROSCOPIC NURon 2023 BILIRUBIN ANISHA Negative Normal NEG [facility] Comment on above: Performed By: #### N UM #### [facility] ([id number]) [address] [place] [address] [place] [address] BLOOD/HGB ANISHA Trace Abnormal NEG [facility] Comment on above: Performed By: #### N UM #### [facility] ([id number]) [address] [place] [address] [place] [address] GLUCOSE ANISHA >=1000 Abnormal NEG [facility] Comment on above: Performed By: #### N UM #### [facility] ([id number]) [address] [place] [address] [place] [address] KETONES ANISHA Negative Normal NEG [facility] Comment on above: Performed By: #### N UM #### [facility] ([id number]) [address] [place] [address] [place] [address] LEUKOCYTE ESTERASE ANISHA Trace Abnormal NEG [facility] Comment on above: Performed By: #### N UM #### [facility] ([id number]) [address] [place] [address] [place] [address] NITRITE ANISHA Negative Normal NEG [facility] Comment on above: Performed By: #### N UM #### [facility] ([id number]) [address] [place] [address] 64665 PH ANISHA 5.5 Normal 5.0-8.5 [facility] Comment on above: Performed By: #### N UM #### [facility] ([id number]) [address] [place] [address] PROTEIN ANISHA Negative Normal NEG [facility] Comment on above: Performed By: #### N UM #### [facility] ([id number]) [address] [place] [address] SPECIFIC GRAVITY ANISHA <=1.005 Normal 1.003-1.035 [facility] Comment on above: Performed By: #### N UM #### [facility] ([id number]) [address] [place] [address] 35986 UROBILINOGEN ANISHA 0.2 eu/dL Normal <1.[address] [facility] Comment on above: Performed By: #### N UM #### [facility] ([id number]) [address] [place] [address] 53173 36on 09-05-2023 36 Can order for lasix 20mg daily. Thanks [facility] 36on 09-04-2023 36 Doesn't look like we have noted her to be on lasix since 01/2023. How often was she taking it? Was her PCP prescribing it? [facility] Office Visiton 01-08-2023 Follow-up visit [id number] Denae Dior 1960 F Date Provider Department Center 01/08/2023 [id number] ACE [facility] Family History Problem Relation Age of Onset Stroke Father Family Status - Relation Status Age at Father Level of Service:20188 [place] OFFICE/OUTPATIENT ESTABLISHED MOD MDM 30-39 MIN [facility] XR DEXA BONE DENSITYon 10-02 XR DEXA BONE DENSITY EXAMINATION: XR DEX A BONE DENSITY, 10/02/2022 8:49 AM EDT HISTORY: [...] by: ROBERT HART Date: 2022-10-02 12:08 Normal [facility] LIPID PROFILEon 08-09-2022 CHOL-HDL RATIO NORM SEE BELOW Normal [facility] Comment on above: Result Comment: 3.3 - 4.4 LOW RISK 4.4 - 7.1 AVERAGE RISK 7.1 - 11.0 MODERATE RISK >11.0 HIGH RISK Performed By: #### M ALBR #### [facility] [address] [place] [address] Dr. Maru Disla Cholesterol [Mass/Vol] 110 mg/dL Normal <=200 [facility] Comment on above: Performed By: #### M ALBR #### [facility] [address] [address] [address] Maru Disla Cholesterol in HDL [Mass/Vol] 38 mg/dL Critically low 40-60 [facility] Comment on above: Performed By: #### M ALBR #### [facility] [address] [address] [address] Maru Disla Cholesterol in LDL [Mass/Vol] 52.4 mg/dL Normal [facility] Comment on above: Performed By: #### M ALBR #### [facility] [address] [address] [address] Maru Disla Cholesterol.total/Chol esterol in HDL [Mass ratio] 2.9 {ratio} Normal [facility] Comment on above: Performed By: #### M ALBR #### [facility] [address] [address] [address] Maru Disla HDL NORMAL > or = 60 mg/dl - LOW CARDIOVASCULAR RISK <40 mg/dl - HIGH CARDIOVASCULAR RISK Normal [facility] Comment on above: Performed By: #### M ALBR #### [facility] [address] [address] [address] Maru Disla LDL CALC NORMAL SEE BELOW Normal [facility] Comment on above: Result Comment: <100 mg/dl OPTIMAL 100 - 129 mg/dl NEAR OR ABOVE OPTIMAL 130 - 159 mg/dl BORDERLINE HIGH 160 - 189 mg/dl HIGH >190 mg/dl VERY HIGH Performed By: #### M ALBR #### [facility] [address] [address] [address] Maru Disla Triglyceride [Mass/Vol] 98 mg/dL Normal <=150 [facility] Comment on above: Performed By: #### M ALBR #### [facility] [address] [address] [address] Maru Disla VLDL CALC 19.6 mg/dL Normal [facility] Comment on above: Performed By: #### M ALBR #### [facility] [address] [place] [address] Dr. Maru Disla MICROALBUMIN, RAND URon 03-0 mALB <1.3 Normal <=30.0 [facility] Comment on above: Performed By: #### M ALBR #### [facility] [address] [address] [address] Maru Disla PROF 14(COMP METB)on 023 Albumin [Mass/Vol] 3.6 g/dL Normal 3.4-5.0 [facility] Comment on above: Performed By: #### M ALBR #### [facility] [address] [place] [address] Dr. Maru Disla Albumin/Globulin [Mass ratio] 0.9 {ratio} Normal [facility] Comment on above: Performed By: #### M ALBR #### [facility] [address] [place] [address] Dr. Maru Disla ALP [Catalytic activity/Vol] 92 U/L Normal 46-116 [facility] Comment on above: Performed By: #### M ALBR #### [facility] [address] [place] [address] Dr. Maru Disla ALT [Catalytic activity/Vol] 22 U/L Normal 14-59 [facility] Comment on above: Performed By: #### M ALBR #### [facility] [address] [address] [address] Maru Disla Anion gap [Moles/Vol] 13.2 mmol/L Normal [facility] Comment on above: Performed By: #### M ALBR #### [facility] [address] [address] [address] Maru Disla AST [Catalytic activity/Vol] 17 U/L Normal 15-37 [facility] Comment on above: Performed By: #### M ALBR #### [facility] [address] [address] [address] Maru Disla Bilirubin [Mass/Vol] 0.4 mg/dL Normal 0.2-1.0 [facility] Comment on above: Performed By: #### M ALBR #### [facility] [address] [address] [address] Maru Disla Calcium [Mass/Vol] 9.3 mg/dL Normal 8.5-10.1 [facility] Comment on above: Performed By: #### M ALBR #### [facility] [address] [address] [address] Maru Disla Chloride [Moles/Vol] 102 mmol/L Normal 98-107 [facility] Comment on above: Performed By: #### M ALBR #### [facility] [address] [address] [address] Maru Disla CO2 [Moles/Vol] 29.7 mmol/L Normal 21.0-32.0 [facility] Comment on above: Performed By: #### M ALBR #### [facility] [address] [address] [address] Maru Disla Creatinine [Mass/Vol] 0.74 mg/dL Normal 0.55-1.02 [facility] Comment on above: Performed By: #### M ALBR #### [facility] [address] [address] [address] Maru Disla EGFR-AF MALIAN >60 Normal >=60 [facility] Comment on above: Performed By: #### M ALBR #### [facility] [address] [place] [address] Dr. Maru Disla EGFR-NON AF MALIAN >60 Normal >=60 [facility] Comment on above: Performed By: #### M ALBR #### [facility] [address] [place] [address] Dr. Maru Disla Globulin (S) [Mass/Vol] 3.9 g/dL Normal [facility] Comment on above: Performed By: #### M ALBR #### [facility] [address] [address] [address] Maru Disla Glucose [Mass/Vol] 271 mg/dL Critically high 74-106 [facility] Comment on above: Performed By: #### M ALBR #### [facility] [address] [place] [address] Dr. Maru Disla Potassium [Moles/Vol] 3.9 mmol/L Normal 3.5-5.1 [facility] Comment on above: Performed By: #### M ALBR #### [facility] [address] [place] [address] Dr. Maru Disla Protein [Mass/Vol] 7.5 g/dL Normal 6.4-8.2 [facility] Comment on above: Performed By: #### M ALBR #### [facility] [address] [place] [address] Dr. Maru Disla Sodium [Moles/Vol] 141 mmol/L Normal 136-145 [facility] Comment on above: Performed By: #### M ALBR #### [facility] [address] [place] [address] Dr. Maru Disla Urea nitrogen [Mass/Vol] 8.0 mg/dL Normal 7.0-18.0 [facility] Comment on above: Performed By: #### M ALBR #### [facility] [address] [place] [address] Dr. Maru Disla Urea nitrogen/Creatinine [Mass ratio] 10.8 mg/mg Normal [facility] Comment on above: Performed By: #### M ALBR #### [facility] [address] [place] [address] Dr. Maru Disla MG MAMM SCREEN 3D BALDO CADon 06-21-2022 MG MAMM SCREEN 3D BALDO CAD Patient: DENAE DIOR Exam Date: 06/21/2022 : 1960 Gender:F Ordering : DMITRY MAIRA RUSH [employer]PER[employer] Admission #: [id number] Family : Order #: [id number] CLICK HERE TO VIEW EXAM RADIOLOGY REPORT [...] breast cancer at age 64. LOCATION: [facility] BREAST COMPOSITION: Scattered areas fibroglandular density. FINDINGS: [...] MD on 06/21/2022 at 10:10 Normal [facility] HEMOGLOBINon 06-20-2022 Hemoglobin (Bld) [Mass/Vol] 15.1 g/dL Normal 12.0-16.0 [facility] Comment on above: Performed By: #### B MP #### [facility] [address] [address] [address] Maru Disla BNPon 04-09-2022 Natriuretic peptide B (Bld) [Mass/Vol] 824.0 pg/mL Normal <=900.0 [facility] Comment on above: Performed By: #### M ALBR #### [facility] [address] [address] [address] Maru Disla CARDIAC BREANNE ADMITon 11-07-2 022 CK [Catalytic activity/Vol] 364 U/L Critically high 26-192 [facility] Comment on above: Performed By: #### P OCGLUC #### [facility] [address] [place] [address] Dr. Maru Disla CK.MB [Mass/Vol] 5.60 ng/mL Critically high <=3.60 [facility] Comment on above: Performed By: #### P OCGLUC #### [facility] [address] [place] [address] Dr. Maru Disla HSTROP 454.7 pg/mL Critically high 4.0-51.3 [facility] Comment on above: Result Comment: CUT- OFF POINTS HAVE BEEN ESTABLISHED BASED ON THE FOURTH UNIVERSAL DEFINITIONS OF MYOCARDIAL INFARCTION. THE UPPER REFERENCE LIMIT (URL) OF TROPONIN, DEFINED THE 99TH PERCENTILE OF cTnI DISTRIBUTION IN A REFERENCE POPULATION, HAS BEEN CONFIRMED THE DECISION THRESHOLD FOR AK DIAGNOSIS. Performed By: #### P OCGLUC #### [facility] [address] [place] [address] Dr. Maru Disla REDD 137 ng/mL Critically high 9-82 [facility] Comment on above: Performed By: #### P OCGLUC #### [facility] [address] [place] [address] Dr. Maru Disla CBC AUTO DIFFon 04-09-2022 BASO # 0.0 103/ul Normal 0.0-0.1 [facility] Comment on above: Performed By: #### A BG #### [facility] [address] [place] [address] Dr. Maru Disla Basophils/100 WBC (Bld) 0.2 % Normal 0.2-2.0 [facility] Comment on above: Performed By: #### A BG #### [facility] [address] [place] [address] Dr. Maru Disla EO # 0.0 103/ul Normal 0.0-0.7 [facility] Comment on above: Performed By: #### A BG #### [facility] [address] [place] [address] Dr. Maru Disla Eosinophils/100 WBC (Bld) 0.0 % Critically low 0.9-7.0 [facility] Comment on above: Performed By: #### A BG #### [facility] [address] [place] [address] Dr. Maru Disla Erythrocyte distribution width (RBC) [Ratio] 13.4 % Normal 11.0-15.0 [facility] Comment on above: Performed By: #### A BG #### [facility] [address] [place] [address] Dr. Maru Disla Hematocrit (Bld) [Volume fraction] 48.3 % Critically high 36.0-48.0 [facility] Comment on above: Performed By: #### A BG #### [facility] [address] [place] [address] Dr. Maru Disla Hemoglobin (Bld) [Mass/Vol] 15.3 g/dL Normal 12.0-16.0 [facility] Comment on above: Performed By: #### A BG #### [facility] [address] [place] [address] Dr. Maru Disla IG # 0.11 10e3/ul Critically high 0.00-0.03 [facility] Comment on above: Performed By: #### A BG #### [facility] [address] [place] [address] Dr. Maru Disla IG % 0.6 % Critically high 0.0-0.5 [facility] Comment on above: Performed By: #### A BG #### [facility] [facility] [address] [place] [address] Dr. Maru Disla LYMPH # 1.1 103/ul Critically low 1.2-3.8 [facility] Comment on above: Performed By: #### A BG #### [facility] [address] [place] [address] Dr. Maru Disla Lymphocytes/100 WBC (Bld) 6.1 % Critically low 20.5-60.0 [facility] Comment on above: Performed By: #### A BG #### [facility] [address] [place] [address] Dr. Maru Disla MANUAL DIFF REQ NO Normal [facility] Comment on above: Performed By: #### A BG #### [facility] [address] [address] [address] Maru Disla MCH (RBC) [Entitic mass] 29.8 pg Normal 26.7-34.0 [facility] Comment on above: Performed By: #### A BG #### [facility] [address] [address] [address] Maru Disla MCHC (RBC) [Mass/Vol] 31.7 g/dL Normal 29.9-35.2 [facility] Comment on above: Performed By: #### A BG #### [facility] [address] [place] [address] Dr. Maru Disla MCV (RBC) [Entitic vol] 94.2 fL Normal 81.0-99.0 [facility] Comment on above: Performed By: #### A BG #### [facility] [address] [place] [address] Dr. Maru Disla MONO # 0.7 103/ul Normal 0.3-0.8 [facility] Comment on above: Performed By: #### A BG #### [facility] [address] [place] [address] Dr. Maru Disla Monocytes/100 WBC (Bld) 3.9 % Normal 1.7-12.0 [facility] Comment on above: Performed By: #### A BG #### [facility] [address] [place] [address] Dr. Maru Disla NEUT # 15.3 103/ul Critically high 1.4-6.5 [facility] Comment on above: Performed By: #### A BG #### [facility] [address] [place] [address] Dr. Maru Disla Neutrophils/100 WBC (Bld) 89.2 % Critically high 43.0-75.0 [facility] Comment on above: Performed By: #### A BG #### [facility] [address] [place] [address] Dr. Maru Disla Platelet mean volume (Bld) [Entitic vol] 10.4 fL Normal 9.5-13.5 [facility] Comment on above: Performed By: #### A BG #### [facility] [address] [address] [address] Maru Disla PLT 311 103/ul Normal 150-450 [facility] Comment on above: Performed By: #### A BG #### [facility] [id number] Maru Disla RBC 5.13 106/ul Normal 4.20-5.40 [facility] Comment on above: Performed By: #### A BG #### [facility] [address] [place], [place] [address] Dr. Maru Disla WBC 17.2 103/ul Critically high 4.0-11.0 [facility] Comment on above: Performed By: #### A BG #### [facility] [address] [address] [address] Maru Disla ECHOCARDIO M/2D COMPLETEon 1 06-09-2021 ECHOCARDIO M/2D COMPLETE Patient: DENAE DIOR Exam Date: 04/09/2022 : 1960 Gender:F Ordering : DR TERI BLOCK . Admission #: [id number] Family : Order #: [id number] CLICK HERE TO VIEW EXAM ECHOCARDIOGRAM REPORT [...] Subramanian M.D. on 04/10/2022 at 15:44 Normal [facility] POINT OF CARE GLUCOSEon 11-0 Glucose [Mass/Vol] 171 mg/dL Critically high 74-106 [facility] Comment on above: Performed By: #### P OCGLUC #### [facility] [address] [address] [address] Maru Disla Glucose [Mass/Vol] 97 mg/dL Normal 74-106 [facility] Comment on above: Performed By: #### M ALBR #### [facility] [address] [address] [address] Maru Disla PROF CHEM 8 (BAS METB)on Anion gap [Moles/Vol] 9.1 mmol/L Normal [facility] Comment on above: Performed By: #### P OCGLUC #### [facility] [address] [address] [address] Maru Disla Calcium [Mass/Vol] 8.7 mg/dL Normal 8.5-10.1 [facility] Comment on above: Performed By: #### P OCGLUC #### [facility] [address] [address] [address] Maru Disla Chloride [Moles/Vol] 104 mmol/L Normal 98-107 [facility] Comment on above: Performed By: #### P OCGLUC #### [facility] [address] [address] [address] Maru Disla CO2 [Moles/Vol] 33.2 mmol/L Critically high 21.0-32.0 [facility] Comment on above: Performed By: #### P OCGLUC #### [facility] [address] [place] [address] Dr. Maru Disla Creatinine [Mass/Vol] 0.87 mg/dL Normal 0.55-1.02 [facility] Comment on above: Performed By: #### P OCGLUC #### [facility] [address] [place] [address] Dr. Maru Disla EGFR-AF MALIAN >60 Normal >=60 [facility] Comment on above: Performed By: #### P OCGLUC #### [facility] [address] [address] [address] Maru Disla EGFR-NON AF MALIAN >60 Normal >=60 [facility] Comment on above: Performed By: #### P OCGLUC #### [facility] [address] [address] [address] Maru Disla Glucose [Mass/Vol] 115 mg/dL Critically high 74-106 [facility] Comment on above: Performed By: #### P OCGLUC #### [facility] [address] [address] [address] Maru Disla Potassium [Moles/Vol] 4.3 mmol/L Normal 3.5-5.1 [facility] Comment on above: Performed By: #### P OCGLUC #### [facility] [address] [address] [address] Maru Disla Sodium [Moles/Vol] 142 mmol/L Normal 136-145 [facility] Comment on above: Performed By: #### P OCGLUC #### [facility] [address] [address] [address] Maru Disla Urea nitrogen [Mass/Vol] 36.0 mg/dL Critically high 7.0-18.0 [facility] Comment on above: Performed By: #### P OCGLUC #### [facility] [address] [address] [address] Maru Disla Urea nitrogen/Creatinine [Mass ratio] 41.4 mg/mg Normal [facility] Comment on above: Performed By: #### P OCGLUC #### [facility] [address] [address] [address] Maru Disla CARDIAC BREANNE 3-6on 2 CK [Catalytic activity/Vol] 381 U/L Critically high 26-192 [facility] Comment on above: Performed By: #### C MREP #### [facility] [address] [address] [address] Maru Disla CK.MB [Mass/Vol] 7.91 ng/mL Critically high <=3.60 [facility] Comment on above: Performed By: #### C MREP #### [facility] [address] [address] [address] Maru Disla HSTROP 766.1 pg/mL Critically high 4.0-51.3 [facility] Comment on above: Result Comment: CUT- OFF POINTS HAVE BEEN ESTABLISHED BASED ON THE FOURTH UNIVERSAL DEFINITIONS OF MYOCARDIAL INFARCTION. THE UPPER REFERENCE LIMIT (URL) OF TROPONIN, DEFINED THE 99TH PERCENTILE OF cTnI DISTRIBUTION IN A REFERENCE POPULATION, HAS BEEN CONFIRMED THE DECISION THRESHOLD FOR AK DIAGNOSIS. Performed By: #### C MREP #### [facility] [address] [address] [address] Maru Disla CK [Catalytic activity/Vol] 356 U/L Critically high 26-192 [facility] Comment on above: Performed By: #### C MREP #### [facility] [address] [address] [address] Maru Disla CK.MB [Mass/Vol] 8.66 ng/mL Critically high <=3.60 [facility] Comment on above: Performed By: #### C MREP #### [facility] [address] [address] [address] Maru Disla HSTROP 610.6 pg/mL Critically high 4.0-51.3 [facility] Comment on above: Result Comment: CUT- OFF POINTS HAVE BEEN ESTABLISHED BASED ON THE FOURTH UNIVERSAL DEFINITIONS OF MYOCARDIAL INFARCTION. THE UPPER REFERENCE LIMIT (URL) OF TROPONIN, DEFINED THE 99TH PERCENTILE OF cTnI DISTRIBUTION IN A REFERENCE POPULATION, HAS BEEN CONFIRMED THE DECISION THRESHOLD FOR AK DIAGNOSIS. Performed By: #### C MREP #### [facility] [address] [address] [address] Maru Disla CARDIAC BREANNE ADMITon 022 CK [Catalytic activity/Vol] 381 U/L Critically high 26-192 [facility] Comment on above: Performed By: #### C MADM #### [facility] [address] [address] [address] Maru Disla CK.MB [Mass/Vol] 8.07 ng/mL Critically high <=3.60 [facility] Comment on above: Performed By: #### C MADM #### [facility] [address] [address] [address] Maru Disla HSTROP 220.2 pg/mL Critically high 4.0-51.3 [facility] Comment on above: Result Comment: CUT- OFF POINTS HAVE BEEN ESTABLISHED BASED ON THE FOURTH UNIVERSAL DEFINITIONS OF MYOCARDIAL INFARCTION. THE UPPER REFERENCE LIMIT (URL) OF TROPONIN, DEFINED THE 99TH PERCENTILE OF cTnI DISTRIBUTION IN A REFERENCE POPULATION, HAS BEEN CONFIRMED THE DECISION THRESHOLD FOR AK DIAGNOSIS. Performed By: #### C MADM #### [facility] [address] [address] [address] Maru Disla REDD 269 ng/mL Critically high 9-82 [facility] Comment on above: Performed By: #### C MADM #### [facility] [address] [place] [address] Dr. Maru Disla CBC AUTO DIFFon 04-08-2022 BASO # 0.0 103/ul Normal 0.0-0.1 [facility] Comment on above: Performed By: #### M ALBR #### [facility] [address] [address] [address] Maru Disla Basophils/100 WBC (Bld) 0.2 % Normal 0.2-2.0 [facility] Comment on above: Performed By: #### M ALBR #### [facility] [address] [address] [address] Maru Disla EO # 0.0 103/ul Normal 0.0-0.7 [facility] Comment on above: Performed By: #### M ALBR #### [facility] [address] [address] [address] Maru Disla Eosinophils/100 WBC (Bld) 0.0 % Critically low 0.9-7.0 [facility] Comment on above: Performed By: #### M ALBR #### [facility] [address] [address] [address] Maru Disla Erythrocyte distribution width (RBC) [Ratio] 13.4 % Normal 11.0-15.0 [facility] Comment on above: Performed By: #### M ALBR #### [facility] [address] [place] [address] Dr. Maru Disla Hematocrit (Bld) [Volume fraction] 52.7 % Critically high 36.0-48.0 [facility] Comment on above: Performed By: #### M ALBR #### [facility] [address] [place] [address] Dr. Maru Disla Hemoglobin (Bld) [Mass/Vol] 16.8 g/dL Critically high 12.0-16.0 [facility] Comment on above: Performed By: #### M ALBR #### [facility] [address] [place] [address] Dr. Maru Disla IG # 0.13 10e3/ul Critically high 0.00-0.03 [facility] Comment on above: Performed By: #### M ALBR #### [facility] [address] [place] [address] Dr. Maru Disla IG % 0.6 % Critically high 0.0-0.5 [facility] Comment on above: Performed By: #### M ALBR #### [facility] [address] [place] [address] Dr. Maru Disla LYMPH # 0.8 103/ul Critically low 1.2-3.8 [facility] Comment on above: Performed By: #### M ALBR #### [facility] [address] [place] [address] Dr. Maru Disla Lymphocytes/100 WBC (Bld) 3.4 % Critically low 20.5-60.0 [facility] Comment on above: Performed By: #### M ALBR #### [facility] [address] [place] [address] Dr. Maru Disla MANUAL DIFF REQ NO Normal [facility] Comment on above: Performed By: #### M ALBR #### [facility] [address] [place] [address] Dr. Maru Disla MCH (RBC) [Entitic mass] 29.4 pg Normal 26.7-34.0 [facility] Comment on above: Performed By: #### M ALBR #### [facility] [address] [place] [address] Dr. Maru Disla MCHC (RBC) [Mass/Vol] 31.9 g/dL Normal 29.9-35.2 [facility] Comment on above: Performed By: #### M ALBR #### [facility] [address] [place] [address] Dr. Maru Disla MCV (RBC) [Entitic vol] 92.1 fL Normal 81.0-99.0 [facility] Comment on above: Performed By: #### M ALBR #### [facility] [address] [place] [address] Dr. Maru Disla MONO # 0.8 103/ul Normal 0.3-0.8 [facility] Comment on above: Performed By: #### M ALBR #### [facility] [address] [place] [address] Dr. Maru Disla Monocytes/100 WBC (Bld) 3.4 % Normal 1.7-12.0 [facility] Comment on above: Performed By: #### M ALBR #### [facility] [address] [place] [address] Dr. Maru Disla NEUT # 21.8 103/ul Critically high 1.4-6.5 [facility] Comment on above: Performed By: #### M ALBR #### [facility] [address] [place] [address] Dr. Maru Disla Neutrophils/100 WBC (Bld) 92.4 % Critically high 43.0-75.0 [facility] Comment on above: Performed By: #### M ALBR #### [facility] [address] [place] [address] Dr. aMru Disla Platelet mean volume (Bld) [Entitic vol] 10.4 fL Normal 9.5-13.5 [facility] Comment on above: Performed By: #### M ALBR #### [facility] [address] [place] [address] Dr. Maru Disla PLT 335 103/ul Normal 150-450 [facility] Comment on above: Performed By: #### M ALBR #### [facility] [address] [address] [address] Maru Disla RBC 5.72 106/ul Critically high 4.20-5.40 [facility] Comment on above: Performed By: #### M ALBR #### [facility] [address] [address] [address] Maru Disla WBC 23.5 103/ul Critically high 4.0-11.0 [facility] Comment on above: Performed By: #### M ALBR #### [facility] [address] [address] [address] Maru Disla POINT OF CARE GLUCOSEon 11-0 Glucose [Mass/Vol] 275 mg/dL Critically high 74-106 [facility] Comment on above: Performed By: #### P OCGLUC #### [facility] [address] [place] [address] Dr. Maru Disla Glucose [Mass/Vol] 161 mg/dL Critically high 74-106 [facility] Comment on above: Performed By: #### B MP #### [facility] [address] [place] [address] Dr. Maru Disla Glucose [Mass/Vol] 140 mg/dL Critically high 74-106 [facility] Comment on above: Performed By: #### P OCGLUC #### [facility] [address] [address] [address] Maru Disla Glucose [Mass/Vol] 219 mg/dL Critically high 74-106 [facility] Comment on above: Performed By: #### P OCGLUC #### [facility] [address] [address] [address] Maru Disla PROF CHEM 8 (BAS METB)on Anion gap [Moles/Vol] 14.0 mmol/L Normal [facility] Comment on above: Performed By: #### M ALBR #### [facility] [address] [place] [address] Dr. Maru Disla Calcium [Mass/Vol] 9.3 mg/dL Normal 8.5-10.1 [facility] Comment on above: Performed By: #### M ALBR #### [facility] [address] [place] [address] Dr. Maru Disla Chloride [Moles/Vol] 98 mmol/L Normal 98-107 [facility] Comment on above: Performed By: #### M ALBR #### [facility] [address] [place] [address] Dr. Maru Disla CO2 [Moles/Vol] 30.5 mmol/L Normal 21.0-32.0 [facility] Comment on above: Performed By: #### M ALBR #### [facility] [address] [place] [address] Dr. Maru Disla Creatinine [Mass/Vol] 1.09 mg/dL Critically high 0.55-1.02 [facility] Comment on above: Performed By: #### M ALBR #### [facility] [address] [place] [address] Dr. Maru Disla EGFR-AF MALIAN >60 Normal >=60 [facility] Comment on above: Performed By: #### M ALBR #### [facility] [address] [place] [address] Dr. Maru Disla EGFR-NON AF MALIAN 51 mL/min/1.73m2 Critically low >=60 [facility] Comment on above: Performed By: #### M ALBR #### [facility] [address] [place] [address] Dr. Maru Disla Glucose [Mass/Vol] 242 mg/dL Critically high 74-106 [facility] Comment on above: Performed By: #### M ALBR #### [facility] [address] [place] [address] Dr. Maru Disla Potassium [Moles/Vol] 3.5 mmol/L Normal 3.5-5.1 [facility] Comment on above: Performed By: #### M ALBR #### [facility] [address] [place] [address] Dr. Maru Disla Sodium [Moles/Vol] 139 mmol/L Normal 136-145 [facility] Comment on above: Performed By: #### M ALBR #### [facility] [address] [place] [address] Dr. Maru Disla Urea nitrogen [Mass/Vol] 32.0 mg/dL Critically high 7.0-18.0 [facility] Comment on above: Performed By: #### M ALBR #### [facility] [address] [place] [address] Dr. Maru iDsla Urea nitrogen/Creatinine [Mass ratio] 29.4 mg/mg Normal [facility] Comment on above: Performed By: #### M ALBR #### [facility] [address] [place] [address] Dr. Maru Disla CBC AUTO DIFFon 04-07-2022 BASO # 0.0 103/ul Normal 0.0-0.1 [facility] Comment on above: Performed By: #### P OCGLUC #### [facility] [address] [place] [address] Dr. Maru Disla Basophils/100 WBC (Bld) 0.2 % Normal 0.2-2.0 [facility] Comment on above: Performed By: #### P OCGLUC #### [facility] [address] [place] [address] Dr. Maru Disla EO # 0.0 103/ul Normal 0.0-0.7 [facility] Comment on above: Performed By: #### P OCGLUC #### [facility] [address] [place] [address] Dr. Maru Disla Eosinophils/100 WBC (Bld) 0.0 % Critically low 0.9-7.0 [facility] Comment on above: Performed By: #### P OCGLUC #### [facility] [address] [place] [address] Dr. Maru Disla Erythrocyte distribution width (RBC) [Ratio] 13.6 % Normal 11.0-15.0 [facility] Comment on above: Performed By: #### P OCGLUC #### [facility] [address] [place] [address] Dr. Maru Disla Hematocrit (Bld) [Volume fraction] 48.1 % Critically high 36.0-48.0 [facility] Comment on above: Performed By: #### P OCGLUC #### [facility] [address] [place] [address] Dr. Maru Disla Hemoglobin (Bld) [Mass/Vol] 14.7 g/dL Normal 12.0-16.0 [facility] Comment on above: Performed By: #### P OCGLUC #### [facility] [address] [place] [address] Dr. Maru Disla IG # 0.16 10e3/ul Critically high 0.00-0.03 [facility] Comment on above: Performed By: #### P OCGLUC #### [facility] [address] [place] [address] Dr. Maru Disla IG % 0.6 % Critically high 0.0-0.5 [facility] Comment on above: Performed By: #### P OCGLUC #### [facility] [address] [place] [address] Dr. Maru Disla LYMPH # 1.0 103/ul Critically low 1.2-3.8 [facility] Comment on above: Performed By: #### P OCGLUC #### [facility] [address] [place] [address] Dr. Maru Disla Lymphocytes/100 WBC (Bld) 4.1 % Critically low 20.5-60.0 [facility] Comment on above: Performed By: #### P OCGLUC #### [facility] [address] [place] [address] Dr. Maru Disla MANUAL DIFF REQ NO Normal [facility] Comment on above: Performed By: #### P OCGLUC #### [facility] [address] [place] [address] Dr. Maru Disla MCH (RBC) [Entitic mass] 29.4 pg Normal 26.7-34.0 [facility] Comment on above: Performed By: #### P OCGLUC #### [facility] [address] [place] [address] Dr. Maru Disla MCHC (RBC) [Mass/Vol] 30.6 g/dL Normal 29.9-35.2 [facility] Comment on above: Performed By: #### P OCGLUC #### [facility] [address] [address] [address] Maru Disla MCV (RBC) [Entitic vol] 96.2 fL Normal 81.0-99.0 [facility] Comment on above: Performed By: #### P OCGLUC #### [facility] [address] [address] [address] Maru Disla MONO # 0.8 103/ul Normal 0.3-0.8 [facility] Comment on above: Performed By: #### P OCGLUC #### [facility] [address] [place] [address] Dr. Maru Disla Monocytes/100 WBC (Bld) 3.2 % Normal 1.7-12.0 [facility] Comment on above: Performed By: #### P OCGLUC #### [facility] [address] [place] [address] Dr. Maru Disla NEUT # 23.1 103/ul Critically high 1.4-6.5 [facility] Comment on above: Performed By: #### P OCGLUC #### [facility] [address] [place] [address] Dr. Maru Disla Neutrophils/100 WBC (Bld) 91.9 % Critically high 43.0-75.0 [facility] Comment on above: Performed By: #### P OCGLUC #### [facility] [address] [place] [address] Dr. Maru Disla Platelet mean volume (Bld) [Entitic vol] 10.5 fL Normal 9.5-13.5 [facility] Comment on above: Performed By: #### P OCGLUC #### [facility] [address] [place] [address] Dr. Maru Disla PLT 300 103/ul Normal 150-450 [facility] Comment on above: Performed By: #### P OCGLUC #### [facility] [address] [place] [address] Dr. Maru Disla RBC 5.00 106/ul Normal 4.20-5.40 [facility] Comment on above: Performed By: #### P OCGLUC #### [facility] [address] [place] [address] Dr. Maru Disla WBC 25.1 103/ul Critically high 4.0-11.0 [facility] Comment on above: Performed By: #### P OCGLUC #### [facility] [address] [place] [address] Dr. Maru Disla POINT OF CARE GLUCOSEon -0 Glucose [Mass/Vol] 247 mg/dL Critically high 74-106 [facility] Comment on above: Performed By: #### B MP #### [facility] [address] [place] [address] Dr. Maru Disla Glucose [Mass/Vol] 182 mg/dL Critically high 74-106 [facility] Comment on above: Performed By: #### A BG #### [facility] [address] [place] [address] Dr. Maru Disla Glucose [Mass/Vol] 177 mg/dL Critically high 74-106 [facility] Comment on above: Performed By: #### P OCGLUC #### [facility] [address] [place] [address] Dr. Maru Disla Glucose [Mass/Vol] 191 mg/dL Critically high 74-106 [facility] Comment on above: Performed By: #### P OCGLUC #### [facility] [address] [place] [address] Dr. Maru Disla PROF CHEM 8 (BAS METB)on Anion gap [Moles/Vol] 11.4 mmol/L Normal [facility] Comment on above: Performed By: #### M ALBR #### [facility] [address] [place] [address] Dr. Maru Disla Calcium [Mass/Vol] 8.9 mg/dL Normal 8.5-10.1 [facility] Comment on above: Performed By: #### M ALBR #### [facility] [address] [address] [address] Maru Disla Chloride [Moles/Vol] 108 mmol/L Critically high 98-107 [facility] Comment on above: Performed By: #### M ALBR #### [facility] [address] [place] [address] Dr. Maru Disla CO2 [Moles/Vol] 27.9 mmol/L Normal 21.0-32.0 [facility] Comment on above: Performed By: #### M ALBR #### [facility] [address] [place] [address] Dr. Maru Disla Creatinine [Mass/Vol] 0.84 mg/dL Normal 0.55-1.02 [facility] Comment on above: Performed By: #### M ALBR #### [facility] [address] [place] [address] Dr. Maru Disla EGFR-AF MALIAN >60 Normal >=60 [facility] Comment on above: Performed By: #### M ALBR #### [facility] [address] [place] [address] Dr. Maru Disla EGFR-NON AF MALIAN >60 Normal >=60 [facility] Comment on above: Performed By: #### M ALBR #### [facility] [address] [place] [address] Dr. Maru Disla Glucose [Mass/Vol] 202 mg/dL Critically high 74-106 [facility] Comment on above: Performed By: #### M ALBR #### [facility] [address] [place] [address] Dr. Maru Disla Potassium [Moles/Vol] 4.3 mmol/L Normal 3.5-5.1 [facility] Comment on above: Performed By: #### M ALBR #### [facility] [address] [place] [address] Dr. Maru Disla Sodium [Moles/Vol] 143 mmol/L Normal 136-145 [facility] Comment on above: Performed By: #### M ALBR #### [facility] [address] [place] [address] Dr. Maru Disla Urea nitrogen [Mass/Vol] 26.0 mg/dL Critically high 7.0-18.0 [facility] Comment on above: Performed By: #### M ALBR #### [facility] [address] [place] [address] Dr. Maru Disla Urea nitrogen/Creatinine [Mass ratio] 31.0 mg/mg Normal [facility] Comment on above: Performed By: #### M ALBR #### [facility] [address] [place] [address] Dr. Maru Disla CBC AUTO DIFFon 04-06-2022 BASO # 0.0 103/ul Normal 0.0-0.1 [facility] Comment on above: Performed By: #### B MP #### [facility] [address] [place] [address] Dr. Maru Disla Basophils/100 WBC (Bld) 0.1 % Critically low 0.2-2.0 [facility] Comment on above: Performed By: #### B MP #### [facility] [address] [place] [address] Dr. Maru Disla EO # 0.0 103/ul Normal 0.0-0.7 [facility] Comment on above: Performed By: #### B MP #### [facility] [address] [place] [address] Dr. Maru Disla Eosinophils/100 WBC (Bld) 0.1 % Critically low 0.9-7.0 [facility] Comment on above: Performed By: #### B MP #### [facility] [address] [place] [address] Dr. Maru Dilsa Erythrocyte distribution width (RBC) [Ratio] 13.4 % Normal 11.0-15.0 [facility] Comment on above: Performed By: #### B MP #### [facility] [address] [place] [address] Dr. Maru Disla Hematocrit (Bld) [Volume fraction] 48.5 % Critically high 36.0-48.0 [facility] Comment on above: Performed By: #### B MP #### [facility] [address] [place] [address] Dr. Maru Disla Hemoglobin (Bld) [Mass/Vol] 15.5 g/dL Normal 12.0-16.0 [facility] Comment on above: Performed By: #### B MP #### [facility] [address] [place] [address] Dr. Maru Disla IG # 0.09 10e3/ul Critically high 0.00-0.03 [facility] Comment on above: Performed By: #### B MP #### [facility] [address] [place] [address] Dr. Maru Disla IG % 0.5 % Normal 0.0-0.5 [facility] Comment on above: Performed By: #### B MP #### [facility] [address] [place] [address] Dr. Maru Disla LYMPH # 0.9 103/ul Critically low 1.2-3.8 [facility] Comment on above: Performed By: #### B MP #### [facility] [address] [place] [address] Dr. Maru Disla Lymphocytes/100 WBC (Bld) 4.5 % Critically low 20.5-60.0 [facility] Comment on above: Performed By: #### B MP #### [facility] [address] [place] [address] Dr. Maru Disla MANUAL DIFF REQ NO Normal [facility] Comment on above: Performed By: #### B MP #### [facility] [address] [place] [address] Dr. Maru Disla MCH (RBC) [Entitic mass] 30.0 pg Normal 26.7-34.0 [facility] Comment on above: Performed By: #### B MP #### [facility] [address] [place] [address] Dr. Maru Disla MCHC (RBC) [Mass/Vol] 32.0 g/dL Normal 29.9-35.2 [facility] Comment on above: Performed By: #### B MP #### [facility] [address] [place] [address] Dr. Maru Disla MCV (RBC) [Entitic vol] 93.8 fL Normal 81.0-99.0 [facility] Comment on above: Performed By: #### B MP #### [facility] [address] [place] [address] Dr. Maru Disla MONO # 0.7 103/ul Normal 0.3-0.8 [facility] Comment on above: Performed By: #### B MP #### [facility] [address] [place] [address] Dr. Maru Disla Monocytes/100 WBC (Bld) 3.5 % Normal 1.7-12.0 [facility] Comment on above: Performed By: #### B MP #### [facility] [address] [place] [address] Dr. Maru Disla NEUT # 18.2 103/ul Critically high 1.4-6.5 [facility] Comment on above: Performed By: #### B MP #### [facility] [address] [place] [address] Dr. Maru Disla Neutrophils/100 WBC (Bld) 91.3 % Critically high 43.0-75.0 [facility] Comment on above: Performed By: #### B MP #### [facility] [address] [place] [address] Dr. Maru Disla Platelet mean volume (Bld) [Entitic vol] 11.2 fL Normal 9.5-13.5 [facility] Comment on above: Performed By: #### B MP #### [facility] [address] [place] [address] Dr. Maru Disla PLT 232 103/ul Normal 150-450 [facility] Comment on above: Performed By: #### B MP #### [facility] [address] [place] [address] Dr. Maru Disla RBC 5.17 106/ul Normal 4.20-5.40 [facility] Comment on above: Performed By: #### B MP #### [facility] [address] [place] [address] Dr. Maru Disla WBC 19.9 103/ul Critically high 4.0-11.0 [facility] Comment on above: Performed By: #### B MP #### [facility] [address] [address] [address] Maru Disla POINT OF CARE GLUCOSEon 11-0 Glucose [Mass/Vol] 199 mg/dL Critically high [facility]106 [facility] Comment on above: Performed By: #### P OCGLUC #### [facility] [address] [address] [address] Maru Disla Glucose [Mass/Vol] 109 mg/dL Critically high -106 [facility] Comment on above: Performed By: #### A BG #### [facility] [address] [place] [address] Dr. Maru Disla Glucose [Mass/Vol] 253 mg/dL Critically high [facility] Comment on above: Performed By: #### P OCGLUC #### [facility] [address] [place] [address] Dr. Maru Disla Glucose [Mass/Vol] 194 mg/dL Critically high [facility]106 [facility] Comment on above: Performed By: #### B MP #### [facility] [address] [address] [address] Maru Disla PROF CHEM 8 (BAS METB)on Anion gap [Moles/Vol] 11.2 mmol/L Normal [facility] Comment on above: Performed By: #### B MP #### [facility] [address] [place] [address] Dr. Maru Disla Calcium [Mass/Vol] 8.8 mg/dL Normal 8.5-10.1 [facility] Comment on above: Performed By: #### B MP #### [facility] [address] [place] [address] Dr. Maru Disla Chloride [Moles/Vol] 105 mmol/L Normal 98-107 [facility] Comment on above: Performed By: #### B MP #### [facility] [address] [place] [address] Dr. Maru Disla CO2 [Moles/Vol] 26.8 mmol/L Normal 21.0-32.0 [facility] Comment on above: Performed By: #### B MP #### [facility] [address] [address] [address] Maru Disla Creatinine [Mass/Vol] 0.66 mg/dL Normal 0.55-1.02 [facility] Comment on above: Performed By: #### B MP #### [facility] [address] [address] [address] Maru Disla EGFR-AF MALIAN >60 Normal >=60 [facility] Comment on above: Performed By: #### B MP #### [facility] [address] [address] [address] Maru Disla EGFR-NON AF MALIAN >60 Normal >=60 [facility] Comment on above: Performed By: #### B MP #### [facility] [address] [place] [address] Dr. Maru Disla Glucose [Mass/Vol] 191 mg/dL Critically high 74-106 [facility] Comment on above: Performed By: #### B MP #### [facility] [address] [address] [address] Maru Disla Potassium [Moles/Vol] 5.0 mmol/L Normal 3.5-5.1 [facility] Comment on above: Performed By: #### B MP #### [facility] [address] [place] [address] Dr. Maru Disla Sodium [Moles/Vol] 138 mmol/L Normal 136-145 [facility] Comment on above: Performed By: #### B MP #### [facility] [address] [address] [address] Maru Disla Urea nitrogen [Mass/Vol] 21.0 mg/dL Critically high 7.0-18.0 [facility] Comment on above: Performed By: #### B MP #### [facility] [address] [address] [address] Maru Disla Urea nitrogen/Creatinine [Mass ratio] 31.8 mg/mg Normal [facility] Comment on above: Performed By: #### B MP #### [facility] [address] [place] [address] Dr. Maru Disla XR CHEST 2 Von [...] CORINE ANGELA Date: 2022-04-06 07:14 Normal [facility] BLOOD GASES BTYon 04-05-2022 02 MODE NASAL CANNULA Normal [facility] Comment on above: Performed By: #### A BG #### [facility] [address] [place] [address] Dr. Maru Disla ALLENS TEST Positive Normal [facility] Comment on above: Performed By: #### A BG #### [facility] [address] [place] [address] Dr. Maru Disla Base excess Calc (Bld) [Moles/Vol] -1.6000 mmol/L Normal -2.0-2.0 [facility] Comment on above: Performed By: #### A BG #### [facility] [address] [place] [address] Dr. Maru Disla BIPAP PRESSURE Normal [facility] Comment on above: Performed By: #### A BG #### [facility] [address] [place] [address] Dr. Maru Disla CPAP Normal [facility] Comment on above: Performed By: #### A BG #### [facility] [address] [place] [address] Dr. Maru Disla FIO2 Normal [facility] Comment on above: Performed By: #### A BG #### [facility] [address] [place] [address] Dr. Maru Disla HCO3 (Bld) [Moles/Vol] 24.0 mmol/L Normal 22.0-26.0 [facility] Comment on above: Performed By: #### A BG #### [facility] [address] [place] [address] Dr. Maru Disla LPM 2 [facility] Comment on above: Performed By: #### A BG #### [facility] [address] [place] [address] Dr. Maru Disla MINUTE VOLUME Normal [facility] Comment on above: Performed By: #### A BG #### [facility] [address] [place] [address] Dr. Maru Disla Oxygen (Bld) [Partial pressure] 56.1 mm[Hg] Critically low 80.0-100.0 [facility] Comment on above: Performed By: #### A BG #### [facility] [address] [place] [address] Dr. Maru Disla Oxygen saturation in Blood 89.9 % Critically low 95.0-100.0 [facility] Comment on above: Performed By: #### A BG #### [facility] [address] [place] [address] Dr. Maru Disla PCO2 43.3 mmHg Normal 35.0-45.0 [facility] Comment on above: Performed By: #### A BG #### [facility] [address] [place] [address] Dr. Maru Disla PEEP [facility] Comment on above: Performed By: #### A BG #### [facility] [address] [place] [address] Dr. Maru Disla pH (Bld) 7.352 [pH] Normal 7.350-7.450 [facility] Comment on above: Performed By: #### A BG #### [facility] [address] [place] [address] Dr. Maru Disla [facility] Comment on above: Performed By: #### A BG #### [facility] [address] [place] [address] Dr. Maru Disla PS [facility] Comment on above: Performed By: #### A BG #### [facility] [address] [place] [address] Dr. Maru Disla PUNCTURE SITE LR [facility] Comment on above: Performed By: #### A BG #### [facility] [address] [place] [address] Dr. Maru Disla RATE [facility] Comment on above: Performed By: #### A BG #### [facility] [address] [place] [address] Dr. Maru Disla VENT MODE [facility] Comment on above: Performed By: #### A BG #### [facility] [address] [place] [address] Dr. Maru Disla [facility] Comment on above: Performed By: #### A BG #### [facility] [address] [place] [address] Dr. Maru Disla BNPon 04-05-2022 Natriuretic peptide B (Bld) [Mass/Vol] 471.0 pg/mL Normal <=900.0 [facility] Comment on above: Performed By: #### P OCGLUC #### [facility] [address] [place] [address] Dr. Maru Disla CBC AUTO DIFFon 04-05-2022 BASO # 0.0 103/ul Normal 0.0-0.1 [facility] Comment on above: Performed By: #### B MP #### [facility] [address] [place] [address] Dr. Maru Disla Basophils/100 WBC (Bld) 0.3 % Normal 0.2-2.0 [facility] Comment on above: Performed By: #### B MP #### [facility] [address] [place] [address] Dr. Maru Disla EO # 0.0 103/ul Normal 0.0-0.7 [facility] Comment on above: Performed By: #### B MP #### [facility] [address] [place] [address] Dr. Maru Disla Eosinophils/100 WBC (Bld) 0.0 % Critically low 0.9-7.0 [facility] Comment on above: Performed By: #### B MP #### [facility] [address] [place] [address] Dr. Maru Disla Erythrocyte distribution width (RBC) [Ratio] 13.2 % Normal 11.0-15.0 [facility] Comment on above: Performed By: #### B MP #### [facility] [address] [place] [address] Dr. Maru Disla Hematocrit (Bld) [Volume fraction] 52.3 % Critically high 36.0-48.0 [facility] Comment on above: Performed By: #### B MP #### [facility] [address] [place] [address] Dr. Maru Disla Hemoglobin (Bld) [Mass/Vol] 16.6 g/dL Critically high 12.0-16.0 [facility] Comment on above: Performed By: #### B MP #### [facility] [address] [place] [address] Dr. Maru Disla IG # 0.05 10e3/ul Critically high 0.00-0.03 [facility] Comment on above: Performed By: #### B MP #### [facility] [address] [place] [address] Dr. Maru Disla IG % 0.4 % Normal 0.0-0.5 [facility] Comment on above: Performed By: #### B MP #### [facility] [address] [place] [address] Dr. Maru Disla LYMPH # 1.5 103/ul Normal 1.2-3.8 [facility] Comment on above: Performed By: #### B MP #### [facility] [address] [place] [address] Dr. Maru Disla Lymphocytes/100 WBC (Bld) 10.7 % Critically low 20.5-60.0 [facility] Comment on above: Performed By: #### B MP #### [facility] [address] [place] [address] Dr. Maru Disla MANUAL DIFF REQ NO Normal [facility] Comment on above: Performed By: #### B MP #### [facility] [address] [place] [address] Dr. Maru Disla MCH (RBC) [Entitic mass] 29.7 pg Normal 26.7-34.0 [facility] Comment on above: Performed By: #### B MP #### [facility] [address] [place] [address] Dr. Maru Disla MCHC (RBC) [Mass/Vol] 31.7 g/dL Normal 29.9-35.2 [facility] Comment on above: Performed By: #### B MP #### [facility] [address] [place] [address] Dr. Maru Disla MCV (RBC) [Entitic vol] 93.6 fL Normal 81.0-99.0 [facility] Comment on above: Performed By: #### B MP #### [facility] [address] [place] [address] Dr. Maru Disla MONO # 1.5 103/ul Critically high 0.3-0.8 [facility] Comment on above: Performed By: #### B MP #### [facility] [address] [place] [address] Dr. Maru Disla Monocytes/100 WBC (Bld) 11.0 % Normal 1.7-12.0 [facility] Comment on above: Performed By: #### B MP #### [facility] [address] [place] [address] Dr. Maru Disla NEUT # 10.8 103/ul Critically high 1.4-6.5 [facility] Comment on above: Performed By: #### B MP #### [facility] [address] [place] [address] Dr. Maru Disla Neutrophils/100 WBC (Bld) 77.6 % Critically high 43.0-75.0 [facility] Comment on above: Performed By: #### B MP #### [facility] [address] [place] [address] Dr. Maru Disla Platelet mean volume (Bld) [Entitic vol] 10.1 fL Normal 9.5-13.5 [facility] Comment on above: Performed By: #### B MP #### [facility] [address] [address] [address] Maru Disla PLT 315 103/ul Normal 150-450 [facility] Comment on above: Performed By: #### B MP #### [facility] [id number] [address] Maru Disla RBC 5.59 106/ul Critically high 4.20-5.40 [facility] Comment on above: Performed By: #### B MP #### [facility] [address] [address] [address] Maru Disla WBC 13.9 103/ul Critically high 4.0-11.0 [facility] Comment on above: Performed By: #### B MP #### [facility] [address] [address] [address] Maru Disla CULTURE BLOODon 04-05-2022 Microscopic examination of blood, culture Culture Observations: NO GROWTH AT 5 DAYS. Normal [facility] Comment on above: Performed By: #### B MP #### [facility] [address] [address] [address] Maru Disla Covid-19 PCR ([facility]on SARS-CoV-2 (COVID-19) RNA NICOLETTE+probe Ql (Unsp spec) Not detected Normal NOT DETECTED [facility] Comment on above: Result Comment: When diagnostic [...] for this test is supported by the [place] of Health and Human Service's declaration that [...] used). Performed By: #### M ALBR #### [facility] [address] [place] [address] Dr. Maru Disla INFLUENZA A AND B AGon 04-05 INFLUENZA A AG Negative Normal NEGATIVE SEE COMMENT [facility] Comment on above: Performed By: #### P OCGLUC #### [facility] [address] [place] [address] Dr. Maru Disla INFLUENZA B AG Negative Normal NEGATIVE SEE COMMENT [facility] Comment on above: Performed By: #### P OCGLUC #### [facility] [address] [place] [address] Dr. Maru Disla INTERNAL CONTROLS Within Normal Limits Normal Wi thin Normal Limits [facility] Comment on above: Performed By: #### P OCGLUC #### [facility] [address] [place] [address] Dr. Maru Disla LACTATE/LACTIC ACIDon 2021 Lactate [Moles/Vol] 3.1 mmol/L Critically high 0.4-1.9 [facility] Comment on above: Performed By: #### L ACT #### [facility] [address] [place] [address] Dr. Maru Disla Lactate [Moles/Vol] 3.1 mmol/L Critically high 0.4-1.9 [facility] Comment on above: Performed By: #### B MP #### [facility] [address] [place] [address] Dr. Maru Disla POINT OF CARE GLUCOSEon Glucose [Mass/Vol] 290 mg/dL Critically high 74-106 [facility] Comment on above: Performed By: #### M ALBR #### [facility] [address] [place] [address] Dr. Maru Disla Glucose [Mass/Vol] 309 mg/dL Critically high 74-106 [facility] Comment on above: Performed By: #### A BG #### [facility] [address] [address] [address] Maru Disla Glucose [Mass/Vol] 289 mg/dL Critically high 74-106 [facility] Comment on above: Performed By: #### P OCGLUC #### [facility] [address] [place] [address] Dr. Maru Disla Glucose [Mass/Vol] 325 mg/dL Critically high 74-106 [facility] Comment on above: Performed By: #### M ALBR #### [facility] [address] [place] [address] Dr. Maru Disla PROF 14(COMP METB)on 022 Albumin [Mass/Vol] 3.3 g/dL Critically low 3.4-5.0 [facility] Comment on above: Performed By: #### P OCGLUC #### [facility] [address] [place] [address] Dr. Maru Disla Albumin/Globulin [Mass ratio] 0.7 {ratio} Normal [facility] Comment on above: Performed By: #### P OCGLUC #### [facility] [address] [place] [address] Dr. Maru Disla ALP [Catalytic activity/Vol] 105 U/L Normal 46-116 [facility] Comment on above: Performed By: #### P OCGLUC #### [facility] [address] [place] [address] Dr. Maru Disla ALT [Catalytic activity/Vol] 15 U/L Normal 14-59 [facility] Comment on above: Performed By: #### P OCGLUC #### [facility] [address] [place] [address] Dr. Maru Disla Anion gap [Moles/Vol] 13.2 mmol/L Normal [facility] Comment on above: Performed By: #### P OCGLUC #### [facility] [address] [place] [address] Dr. Maru Disla AST [Catalytic activity/Vol] 12 U/L Critically low 15-37 [facility] Comment on above: Performed By: #### P OCGLUC #### [facility] [address] [address] [address] Maru Disla Bilirubin [Mass/Vol] 0.4 mg/dL Normal 0.2-1.0 [facility] Comment on above: Performed By: #### P OCGLUC #### [facility] [address] [place] [address] Dr. Maru Disla Calcium [Mass/Vol] 8.8 mg/dL Normal 8.5-10.1 [facility] Comment on above: Performed By: #### P OCGLUC #### [facility] [address] [address] [address] Maru Disla Chloride [Moles/Vol] 101 mmol/L Normal 98-107 [facility] Comment on above: Performed By: #### P OCGLUC #### [facility] [address] [place] [address] Dr. Maru Disla CO2 [Moles/Vol] 26.0 mmol/L Normal 21.0-32.0 [facility] Comment on above: Performed By: #### P OCGLUC #### [facility] [address] [place] [address] Dr. Maru Disla Creatinine [Mass/Vol] 1.03 mg/dL Critically high 0.55-1.02 [facility] Comment on above: Performed By: #### P OCGLUC #### [facility] [address] [place] [address] Dr. Maru Disla EGFR-AF MALIAN >60 Normal >=60 [facility] Comment on above: Performed By: #### P OCGLUC #### [facility] [address] [place] [address] Dr. Maru Disla EGFR-NON AF MALIAN 54 mL/min/1.73m2 Critically low >=60 [facility] Comment on above: Performed By: #### P OCGLUC #### [facility] [address] [place] [address] Dr. Maru Disla Globulin (S) [Mass/Vol] 4.5 g/dL Normal [facility] Comment on above: Performed By: #### P OCGLUC #### [facility] [address] [place] [address] Dr. Maru Disla Glucose [Mass/Vol] 264 mg/dL Critically high 74-106 [facility] Comment on above: Performed By: #### P OCGLUC #### [facility] [address] [address] [address] Maru Disla Potassium [Moles/Vol] 4.2 mmol/L Normal 3.5-5.1 [facility] Comment on above: Performed By: #### P OCGLUC #### [facility] [address] [address] [address] Maru Disla Protein [Mass/Vol] 7.8 g/dL Normal 6.4-8.2 [facility] Comment on above: Performed By: #### P OCGLUC #### [facility] [address] [place] [address] Dr. Maru Disla Sodium [Moles/Vol] 136 mmol/L Normal 136-145 [facility] Comment on above: Performed By: #### P OCGLUC #### [facility] [address] [place] [address] Dr. Maru Disla Urea nitrogen [Mass/Vol] 14.0 mg/dL Normal 7.0-18.0 [facility] Comment on above: Performed By: #### P OCGLUC #### [facility] [address] [place] [address] Dr. Maru Disla Urea nitrogen/Creatinine [Mass ratio] 13.6 mg/mg Normal [facility] Comment on above: Performed By: #### P OCGLUC #### [facility] [address] [place] [address] Dr. Maru Disla TROPONIN, HIGH SENSITIVITYon 04-05-2022 HSTROP 10.5 pg/mL Normal 4.0-51.3 [facility] Comment on above: Result Comment: CUT- OFF POINTS HAVE BEEN ESTABLISHED BASED ON THE FOURTH UNIVERSAL DEFINITIONS OF MYOCARDIAL INFARCTION. THE UPPER REFERENCE LIMIT (URL) OF TROPONIN, DEFINED THE 99TH PERCENTILE OF cTnI DISTRIBUTION IN A REFERENCE POPULATION, HAS BEEN CONFIRMED THE DECISION THRESHOLD FOR [place] DIAGNOSIS. Performed By: #### A BG #### [facility] [address] [place] [address] Dr. Maru Disla XR CHEST 1 Von [...] by: YECENIA MONTERO Date: 2022-04-05 06:51 Normal [facility] Vital Signs Date Time Vital Sign Value Performing Clinician Facility 05-28-2024 11:24-0500 Body height 167.6 cm Maira Rush DIAGNOSTIC TECHNICIAN Work Phone: [facility] 05-28-2024 11:24-0500 Body mass index (BMI) [Ratio] 32.83 kg/m2 Maira Victor Manuel DIAGNOSTIC TECHNICIAN Work Phone: [facility] 05-28-2024 11:24-0500 Body temperature 98.1 [degF] Maira Victor Manuel DIAGNOSTIC TECHNICIAN Work Phone: [facility] 05-28-2024 11:24-0500 Body weight 92.26 kg Maira Fatouz DIAGNOSTIC TECHNICIAN Work Phone: [facility] 05-28-2024 11:24-0500 Diastolic blood pressure 66 mm[Hg] Maira Fatouz DIAGNOSTIC TECHNICIAN Work Phone: [facility] 05-28-2024 11:24-0500 Heart rate 73 /min Maira Fatouz DIAGNOSTIC TECHNICIAN Work Phone: [facility] 05-28-2024 11:24-0500 Respiratory rate 22 /min Maira Fatouz DIAGNOSTIC TECHNICIAN Work Phone: [facility] 05-28-2024 11:24-0500 SaO2% (BldA) [Mass fraction] 92 % Maira Fatouz DIAGNOSTIC TECHNICIAN Work Phone: [facility] 05-28-2024 11:24-0500 Systolic blood pressure 110 mm[Hg] Mairasunny Lainezz DIAGNOSTIC TECHNICIAN Work Phone: [facility] 05-19-2024 14:16-0500 Body height 167.6 cm Maira Yoonholz DIAGNOSTIC TECHNICIAN Work Phone: [facility] 05-19-2024 14:16-0500 Body mass index (BMI) [Ratio] 33.77 kg/m2 Maira Yoonholz DIAGNOSTIC TECHNICIAN Work Phone: [facility] 05-19-2024 14:16-0500 Body temperature 98.71 [degF] Maira Yoonholz DIAGNOSTIC TECHNICIAN Work Phone: [facility] 05-19-2024 14:16-0500 Body weight 94.89 kg Maira Yoonholz DIAGNOSTIC TECHNICIAN Work Phone: [facility] 05-19-2024 14:16-0500 Diastolic blood pressure 66 mm[Hg] Maira Yoonholz DIAGNOSTIC TECHNICIAN Work Phone: [facility] 05-19-2024 14:16-0500 Heart rate 71 /min Maira Yoonholz DIAGNOSTIC TECHNICIAN Work Phone: [facility] 05-19-2024 14:16-0500 Respiratory rate 18 /min Maira Yoonholz DIAGNOSTIC TECHNICIAN Work Phone: [facility] 05-19-2024 14:16-0500 SaO2% (BldA) [Mass fraction] 93 % Maira Yoonholz DIAGNOSTIC TECHNICIAN Work Phone: [facility] 05-19-2024 14:16-0500 Systolic blood pressure 120 mm[Hg] Maira Yoonholz DIAGNOSTIC TECHNICIAN Work Phone: [facility] 05-06-2024 13:32-0500 Body height 167.6 cm Maira Yoonholz DIAGNOSTIC TECHNICIAN Work Phone: [facility] 05-06-2024 13:32-0500 Body mass index (BMI) [Ratio] 33.77 kg/m2 Maira Kenahholz DIAGNOSTIC TECHNICIAN Work Phone: [facility] 05-06-2024 13:32-0500 Body temperature 97.81 [degF] Maira Nettlesholz DIAGNOSTIC TECHNICIAN Work Phone: [facility] 05-06-2024 13:32-0500 Body weight 94.89 kg Maira Yoonholz DIAGNOSTIC TECHNICIAN Work Phone: [facility] 05-06-2024 13:32-0500 Diastolic blood pressure 76 mm[Hg] Maira Kenahholz DIAGNOSTIC TECHNICIAN Work Phone: [facility] 05-06-2024 13:32-0500 Heart rate 73 /min Maira Aichholz DIAGNOSTIC TECHNICIAN Work Phone: [facility] 05-06-2024 13:32-0500 SaO2% (BldA) [Mass fraction] 97 % Maira Yoonholz DIAGNOSTIC TECHNICIAN Work Phone: [facility] 05-06-2024 13:32-0500 Systolic blood pressure 138 mm[Hg] Maira Yoonholz DIAGNOSTIC TECHNICIAN Work Phone: [facility] 04-22-2024 09:23-0500 Body height 167.6 cm Maira Kenahholz DIAGNOSTIC TECHNICIAN Work Phone: [facility] 04-22-2024 09:23-0500 Body mass index (BMI) [Ratio] 32.44 kg/m2 Maira Yoonholz DIAGNOSTIC TECHNICIAN Work Phone: [facility] 04-22-2024 09:23-0500 Body temperature 98.1 [degF] Maira Yoonholz DIAGNOSTIC TECHNICIAN Work Phone: [facility] 04-22-2024 09:23-0500 Body weight 91.17 kg Maira Kenahholz DIAGNOSTIC TECHNICIAN Work Phone: [facility] 04-22-2024 09:23-0500 Diastolic blood pressure 78 mm[Hg] Maira Kenahholz DIAGNOSTIC TECHNICIAN Work Phone: [facility] 04-22-2024 09:23-0500 Heart rate 68 /min Maira Kenahholz DIAGNOSTIC TECHNICIAN Work Phone: [facility] 04-22-2024 09:23-0500 Respiratory rate 20 /min Maira Ntetlesdominic DIAGNOSTIC TECHNICIAN Work Phone: [facility] 04-22-2024 09:23-0500 SaO2% (BldA) [Mass fraction] 95 % Maira Rush DIAGNOSTIC TECHNICIAN Work Phone: [facility] 04-22-2024 09:23-0500 Systolic blood pressure 122 mm[Hg] Maira Rush DIAGNOSTIC TECHNICIAN Work Phone: [facility] 04-21-2024 14:21-0500 Body height 167.6 cm Felton Allison MD Work Phone: [facility] 04-21-2024 14:21-0500 Body mass index (BMI) [Ratio] 33.09 kg/m2 Felton Allison MD Work Phone: [facility] 04-21-2024 14:21-0500 Body weight 92.99 kg Felton Allison MD Work Phone: [facility] 04-21-2024 14:21-0500 Diastolic blood pressure 72 mm[Hg] Felton Allison MD Work Phone: [facility] 04-21-2024 14:21-0500 Heart rate 77 /min Felton Allison MD Work Phone: [facility] 04-21-2024 14:21-0500 Respiratory rate 18 /min Feltno Allison MD Work Phone: [facility] 04-21-2024 14:21-0500 Systolic blood pressure 112 mm[Hg] Felton Allison MD Work Phone: [facility] 03-20-2024 09:07-0400 Body temperature 96.91 [degF] Malik Ramos RODBUSTER-CNC MACHINE OPERATOR Work Phone: [facility] 03-20-2024 09:07-0400 Diastolic blood pressure 48 mm[Hg] Malik Ramos RODBUSTER-CNC MACHINE OPERATOR Work Phone: [facility] 03-20-2024 09:07-0400 Heart rate 76 /min Malik Ramos APRN-CNC MACHINE OPERATOR Work Phone: [facility] 03-20-2024 09:07-0400 Respiratory rate 16 /min Malik Ramos RODBUSTER-CNC MACHINE OPERATOR Work Phone: [facility] 03-20-2024 09:07-0400 Systolic blood pressure 100 mm[Hg] Malik Ramos APRN-CNC MACHINE OPERATOR Work Phone: [facility] 03-11-2024 10:25-0400 Body height 167.6 cm Maira Aichholz DIAGNOSTIC TECHNICIAN Work Phone: [facility] 03-11-2024 10:25-0400 Body mass index (BMI) [Ratio] 33.28 kg/m2 Maira Aichholz DIAGNOSTIC TECHNICIAN Work Phone: [facility] 03-11-2024 10:25-0400 Body temperature 98.1 [degF] Maira Aichholz DIAGNOSTIC TECHNICIAN Work Phone: [facility] 03-11-2024 10:25-0400 Body weight 93.53 kg Maira Aichholz DIAGNOSTIC TECHNICIAN Work Phone: [facility] 03-11-2024 10:25-0400 Diastolic blood pressure 80 mm[Hg] Maira Aichholz DIAGNOSTIC TECHNICIAN Work Phone: [facility] 03-11-2024 10:25-0400 Heart rate 71 /min Maira Aichholz DIAGNOSTIC TECHNICIAN Work Phone: [facility] 03-11-2024 10:25-0400 Respiratory rate 18 /min Maira Aichholz DIAGNOSTIC TECHNICIAN Work Phone: [facility] 03-11-2024 10:25-0400 SaO2% (BldA) [Mass fraction] 96 % Maira Aichholz DIAGNOSTIC TECHNICIAN Work Phone: [facility] 03-11-2024 10:25-0400 Systolic blood pressure 122 mm[Hg] Maira Aichholz DIAGNOSTIC TECHNICIAN Work Phone: [facility] 02-25-2024 10:56-0400 Body height 167.6 cm Maira Aichholz DIAGNOSTIC TECHNICIAN Work Phone: [facility] 02-25-2024 10:56-0400 Body mass index (BMI) [Ratio] 33.51 kg/m2 Maira Aichholz DIAGNOSTIC TECHNICIAN Work Phone: [facility] 02-25-2024 10:56-0400 Body temperature 98.1 [degF] Maira Aichholz DIAGNOSTIC TECHNICIAN Work Phone: [facility] 02-25-2024 10:56-0400 Body weight 94.17 kg Maira Aichholz DIAGNOSTIC TECHNICIAN Work Phone: [facility] 02-25-2024 10:56-0400 Diastolic blood pressure 76 mm[Hg] Maira Aichholz DIAGNOSTIC TECHNICIAN Work Phone: [facility] 02-25-2024 10:56-0400 Heart rate 77 /min Maira Aichholz DIAGNOSTIC TECHNICIAN Work Phone: [facility] 02-25-2024 10:56-0400 Respiratory rate 19 /min Maira Aichholz DIAGNOSTIC TECHNICIAN Work Phone: [facility] 02-25-2024 10:56-0400 SaO2% (BldA) [Mass fraction] 97 % Maira Aichholz DIAGNOSTIC TECHNICIAN Work Phone: [facility] 02-25-2024 10:56-0400 Systolic blood pressure 122 mm[Hg] Maira Aichholz DIAGNOSTIC TECHNICIAN Work Phone: [facility] 02-17-2024 11:07-0400 Body height 167.6 cm Maira Aichholz DIAGNOSTIC TECHNICIAN Work Phone: [facility] 02-17-2024 11:07-0400 Body mass index (BMI) [Ratio] 34.19 kg/m2 Maira Aichholz DIAGNOSTIC TECHNICIAN Work Phone: [facility] 02-17-2024 11:07-0400 Body temperature 98.49 [degF] Maira Aichholz DIAGNOSTIC TECHNICIAN Work Phone: [facility] 02-17-2024 11:07-0400 Body weight 96.07 kg Maira Aichholz DIAGNOSTIC TECHNICIAN Work Phone: [facility] 02-17-2024 11:07-0400 Diastolic blood pressure 82 mm[Hg] Maira Aichholz DIAGNOSTIC TECHNICIAN Work Phone: [facility] 02-17-2024 11:07-0400 Heart rate 78 /min Maira Aichholz DIAGNOSTIC TECHNICIAN Work Phone: [facility] 02-17-2024 11:07-0400 Respiratory rate 19 /min Maira Aichholz DIAGNOSTIC TECHNICIAN Work Phone: [facility] 02-17-2024 11:07-0400 SaO2% (BldA) [Mass fraction] 98 % Maira Aichholz DIAGNOSTIC TECHNICIAN Work Phone: [facility] 02-17-2024 11:07-0400 Systolic blood pressure 118 mm[Hg] Maira Aichholz DIAGNOSTIC TECHNICIAN Work Phone: [facility] 07-18-2023 14:27-0500 Body height 167.6 cm Maira Aichholz DIAGNOSTIC TECHNICIAN Work Phone: [facility] 07-18-2023 14:27-0500 Body mass index (BMI) [Ratio] 38.29 kg/m2 Maira Aichholz DIAGNOSTIC TECHNICIAN Work Phone: [facility] 07-18-2023 14:27-0500 Body temperature 98.01 [degF] Maira Aichholz DIAGNOSTIC TECHNICIAN Work Phone: [facility] 07-18-2023 14:27-0500 Body weight 107.59 kg Maira Aichholz DIAGNOSTIC TECHNICIAN Work Phone: [facility] 07-18-2023 14:27-0500 Diastolic blood pressure 78 mm[Hg] Maira Aichholz DIAGNOSTIC TECHNICIAN Work Phone: [facility] 07-18-2023 14:27-0500 Heart rate 79 /min Maira Aichholz DIAGNOSTIC TECHNICIAN Work Phone: [facility] 07-18-2023 14:27-0500 Respiratory rate 19 /min Maira Nettlesdominic DIAGNOSTIC TECHNICIAN Work Phone: [facility] 07-18-2023 14:27-0500 SaO2% (BldA) [Mass fraction] 97 % Maira Kenadesmonddominic DIAGNOSTIC TECHNICIAN Work Phone: [facility] 07-18-2023 14:27-0500 Systolic blood pressure 142 mm[Hg] Maira Kenadesmonddominic DIAGNOSTIC TECHNICIAN Work Phone: [facility] Encounters Encounter Date Encounter Type Care Provider Facility Start: 05-28-2024 End: 05-28-2024 Orders Only Maira Victor Manuel DIAGNOSTIC TECHNICIAN Work Phone: [facility] Comment on above: Lung nodule, multipl e (Primary Dx); COPD mixed type (CMS/HCC) 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 (CMS/HCC) (Primary Dx) Start: 05-28-2024 End: 05-28-2024 Office outpatient visit 25 minutes Maira Rush DIAGNOSTIC TECHNICIAN Work Phone: [facility] Comment on above: Oxygen dependent (Pr imary Dx); COPD mixed type (CMS/HCC); Obesity (BMI 30-39.9); COPD with acute exacerbation (CMS/HCC) Start: 05-25-2024 End: 05-25-2024 Clinisync Result Encounter Generic External Data Provider [facility] External Department Unsolicited Start: 05-25-2024 End: 05-25-2024 Clinisync Result Encounter Generic External Data Provider [facility] External Department Unsolicited Start: 05-19-2024 End: 05-19-2024 Bamboo flowsheet Maira Rush DIAGNOSTIC TECHNICIAN Work Phone: [facility] Start: 05-19-2024 End: 05-19-2024 Bamboo flowsheet Maira Rush DIAGNOSTIC TECHNICIAN Work Phone: [facility] Start: 05-19-2024 End: 05-19-2024 Office outpatient visit 15 minutes Maira Rush DIAGNOSTIC TECHNICIAN Work Phone: [facility] Comment on above: Right wrist pain (Pr imary Dx); Obesity (BMI 30-39.9) Start: 05-19-2024 End: 05-19-2024 ambulatory MAIRA VICTOR MANUEL Not Available Start: 05-18-2024 End: 05-18-2024 Orders Only Maira Rush DIAGNOSTIC TECHNICIAN Work Phone: [facility] Comment on above: Lung nodule, multipl e (Primary Dx) Start: 05-06-2024 End: 05-06-2024 Bamboo flowsheet Maira Rush DIAGNOSTIC TECHNICIAN Work Phone: [facility] Start: 05-06-2024 End: 05-06-2024 Bamboo flowsheet Maira Rush DIAGNOSTIC TECHNICIAN Work Phone: [facility] Start: 05-06-2024 End: 05-06-2024 Office outpatient visit 25 minutes Maira Rush DIAGNOSTIC TECHNICIAN Work Phone: [facility] Comment on above: COPD mixed type (CMS /HCC) (Primary Dx); SANTO (obstructive sleep apnea); Lung nodule, multiple; Community acquired pneumonia, unspecified laterality; Primary hypertension (CMS/HCC); Atrial fibrillation, unspecified type (CMS/HCC); Type 2 diabetes mellitus without complication, with long-term current use of insulin (CMS/HCC); Tobacco user; Needs flu shot Start: 05-06-2024 End: 05-06-2024 ambulatory MAIRA VICTOR MANUEL Not Available Start: 04-22-2024 End: 04-22-2024 Patient encounter status Maira Rush DIAGNOSTIC TECHNICIAN Work Phone: [facility] Start: 04-22-2024 End: 04-22-2024 Periodic preventive med est patient 40-64yrs Maira Rush DIAGNOSTIC TECHNICIAN Work Phone: [facility] Comment on above: Encounter for wellne ss examination (Primary Dx); Osteoporosis, unspecified osteoporosis type, unspecified pathological fracture presence (CMS/HCC); Open wound of buttock, unspecified laterality, initial encounter; Type 2 diabetes mellitus without complication, with long-term current use of insulin ([facility]); Obesity (BMI 30-39.9); Tobacco user; Anxiety and depression ([facility]); Type 2 diabetes mellitus with diabetic neuropathy, with long-term current use of insulin ([facility]); COPD mixed type [facility] [facility]); Diabetic polyneuropathy associated with type 2 diabetes mellitus ([facility]); Gastroesophageal reflux disease, unspecified whether esophagitis present; Mixed hyperlipidemia ([facility]); Primary hypertension ([facility]); Edema of extremities; Lung nodule, multiple; Lymphadenopathy, generalized; Vitamin D deficiency; Oxygen dependent; Community acquired pneumonia, unspecified laterality Start: 04-22-2024 End: 04-22-2024 ambulatory MAIRA RUSH Not Available Start: 04-21-2024 End: 04-21-2024 Office outpatient visit 25 minutes Felton Allison MD Work Phone: [facility] Comment on above: Type 2 diabetes gayatri itus with hyperglycemia, with long-term current use of insulin ([facility]) (Primary Dx); Encounter for dietary consultation; Vitamin D deficiency; Primary hypertension ([facility]); Hyperlipemia, mixed ([facility]); Insulin long-term use ([facility]); Class 1 obesity due to excess calories without serious comorbidity with body mass index (BMI) of 33.0 to 33.9 in adult Start: 04-21-2024 End: 04-21-2024 ambulatory FELTON ALLISON Not Available Start: 04-09-2024 End: 04-09-2024 Clinisync Result Encounter Maira Rush DIAGNOSTIC TECHNICIAN Work Phone: [facility] External Department Unsolicited Start: 04-09-2024 End: 04-09-2024 Clinisync Result Encounter Maira Rush NP Work Phone: [facility] External Department Unsolicited Start: 04-09-2024 End: 04-09-2024 Telephone encounter Maira Rush NP Work Phone: [facility] Start: 03-20-2024 End: 03-20-2024 Office outpatient new 20 minutes Malik Ramos RODBUSTER-CNC MACHINE OPERATOR Work Phone: [facility] Comment on above: Type 2 diabetes gayatri itus with other skin ulcer, with long-term current use of insulin ([facility]) (Primary Dx); Stage III pressure ulcer of sacral region ([facility]); Open wound Start: 03-20-2024 End: 03-20-2024 ambulatory MALIK RAMOS [facility] Start: 03-18-2024 End: 03-18-2024 Refill Maira Aichholz DIAGNOSTIC TECHNICIAN Work Phone: [facility] Comment on above: COPD mixed type (CMS /HCC) (Primary Dx); URI, acute COPD mixed type (CMS /HCC); URI, acute Start: 03-16-2024 End: 03-16-2024 Refill Maira Aichholz DIAGNOSTIC TECHNICIAN Work Phone: [facility] Comment on above: Primary hypertension (CMS/HCC) (Primary Dx); Edema of extremities Start: 03-11-2024 End: 03-11-2024 Bamboo flowsheet Maira Aichholz DIAGNOSTIC TECHNICIAN Work Phone: [facility] Start: 03-11-2024 End: 03-11-2024 Bamboo flowsheet Maira Aichholz DIAGNOSTIC TECHNICIAN Work Phone: [facility] Start: 03-11-2024 End: 03-11-2024 Office outpatient visit 25 minutes Maira Aichholz DIAGNOSTIC TECHNICIAN Work Phone: [facility] Comment on above: Viral upper respirat ory tract infection (Primary Dx); Tobacco user; Open wound; Obesity (BMI 30-39.9); Type 2 diabetes mellitus without complication, with long-term current use of insulin (CMS/HCC) Start: 03-11-2024 End: 03-11-2024 ambulatory MAIRA AICHHOLZ Not Available Start: 02-25-2024 End: 02-25-2024 Bamboo flowsheet Maira Aichholz DIAGNOSTIC TECHNICIAN Work Phone: [facility] Start: 02-25-2024 End: 02-25-2024 Bamboo flowsheet Maira Aichholz DIAGNOSTIC TECHNICIAN Work Phone: [facility] Start: 02-25-2024 End: 02-25-2024 Office outpatient visit 25 minutes Maira Aichvaz DIAGNOSTIC TECHNICIAN Work Phone: [facility] Comment on above: Open wound of buttoc k, unspecified laterality, initial encounter (Primary Dx); Type 2 diabetes mellitus without complication, with long-term current use of insulin ([facility]); Obesity (BMI 30-39.9); Dizziness and giddiness Start: 02-25-2024 End: 02-25-2024 ambulatory MAIRA AICHHOLZ Not Available Start: 02-24-2024 End: 02-26-2024 Clinisync Result Encounter Generic External Data Provider [facility] External Department Unsolicited Start: 02-24-2024 End: 02-26-2024 Clinisync Result Encounter Generic External Data Provider [facility] External Department Unsolicited Start: 02-17-2024 End: 02-17-2024 Bamboo flowsheet Maira Aichholz DIAGNOSTIC TECHNICIAN Work Phone: [facility] Start: 02-17-2024 End: 02-17-2024 Bamboo flowsheet Maira Aichholz DIAGNOSTIC TECHNICIAN Work Phone: [facility] Start: 02-17-2024 End: 02-17-2024 Office outpatient visit 25 minutes Maira Kenahholz DIAGNOSTIC TECHNICIAN Work Phone: [facility] Comment on above: Type 2 diabetes gayatri itus with hyperglycemia (CMS/HCC) (Primary Dx); Primary hypertension ([facility]); Edema of extremities; Type 2 diabetes mellitus without complication, with long-term current use of insulin ([facility]); Vitamin D deficiency; Tobacco user; Dizziness and giddiness; Atrial fibrillation, unspecified type (CMS/HCC); COPD mixed type (CMS/HCC) Start: 02-17-2024 End: 02-17-2024 ambulatory MAIRA AICHHOLZ Not Available Start: 01-23-2024 End: 01-23-2024 ambulatory CHAPITO DAMICO [facility] Start: 01-16-2024 End: 01-22-2024 ambulatory YVES GIL [facility] Start: 01-16-2024 End: 01-22-2024 Emergency department patient visit CHIKI TERRY [facility] Start: 01-16-2024 End: 01-22-2024 ambulatory MAIRA RUSH [facility] Start: 11-19-2023 End: 11-19-2023 ambulatory MAIRA AICHHOLZ Not Available Start: 10-16-2023 End: 10-16-2023 ambulatory MAIRA AICHHOLZ Not Available Start: 07-18-2023 End: 07-18-2023 Office outpatient visit 25 minutes Maira Rush DIAGNOSTIC TECHNICIAN Work Phone: [facility] Comment on [...] (CMS/HCC) Start: 07-18-2023 End: 07-18-2023 ambulatory MAIRA AICHHOLZ Not Available Start: 07-18-2023 Bamboo flowsheet Maira Aichholz DIAGNOSTIC TECHNICIAN Work Phone: [facility] Start: 07-18-2023 Bamboo flowsheet Maira Aichholz DIAGNOSTIC TECHNICIAN Work Phone: [facility] Start: 01-08-2023 End: 01-08-2023 ambulatory [facility] Start: 10-02-2022 End: 10-03-2022 ambulatory CNC MACHINE OPERATOR MAIRA AICHHOLZ Facility:[facility]1 Start: 08-09-2022 End: 08-10-2022 ambulatory DMITRY RUSH Facility:[facility] Start: 07-12-[address] [facility] Start: 06-21-2022 End: 06-22-[address] CORINE ANGELA Facility:[facility] Start: 06-20-2022 End: 06-21-2022 ambulatory DMITRY RUSH Facility:[facility] Start: 06-07-2022 End: 06-07-2022 ambulatory Robert Hart Facility:[facility] Start: 04-05-2022 End: 04-09-2022 Evaluation and management of inpatient DR TERI BLOCK . Facility:[facility]1 Start: 11-23-2021 End: 11-23-2021 ambulatory DMITRY RUSH Facility:[facility] Start: 09-30-2018 End: 10-01-2018 Patient encounter procedure DEFAULT PHYSICIAN Facility:[facility] Start: 09-15-2018 End: 09-16-2018 Patient encounter procedure DEFAULT PHYSICIAN Facility:[facility] Procedures Date Procedure Procedure Detail Performing Clinician Start: 05-25-2024 ALL RENAL FUNCTION PANEL Generic External Data Provider Start: 04-21-2024 Gluc bld gluc mntr d ev cleared fda spec home use Felton Allison MD Work Phone: Start: 04-09-2024 [facility] UA (CLEAN/CATCH) MICROSCOPIC IF INDICATE Maira Victor Manuel DIAGNOSTIC TECHNICIAN Work Phone: Start: 02-24-2024 Bacteria identified in Urine by Culture Generic External Data Provider Start: 08-05-2023 Mammography Maira santiago DIAGNOSTIC TECHNICIAN Work Phone: Start: 06-19-2022 Mammography Maira santiago DIAGNOSTIC TECHNICIAN Work Phone: Start: 02-14-2015 Colonoscopy Maira santiago DIAGNOSTIC TECHNICIAN Work Phone: Plan of Treatment Date Care Activity Detail Author Start: 11-24-2031 DTaP,Tdap and Td Vaccines (3 - Td or Tdap) DTaP,Tdap and Td Vaccines (3 - Td or Tdap) [facility] Start: 05-25-2025 Urine screening for protein Diabetes: Urine Protein Screening [facility] Start: 03-20-2025 Tobacco Screening Tobacco Screening [facility] Start: 02-14-2025 Screening for malignant neoplasm of colon [facility] Start: 02-06-2025 Adult BMI Screening Adult BMI Screening [facility] Start: 11-26-2024 End: 05-28-2025 CT Chest W contrast IV CT chest w IV contrast Imaging Routine Lung nodule, multiple Expected: 11/26/2024 (Approximate), Expires: 05/28/2025 [facility] Work Phone: Comment on above: Expected: 11/26/2024 (Approximate), Expi res: 05/28/2025 Start: 08-06-2024 End: 08-06-2024 Patient encounter procedure 08/06/2024 9:20 AM EST Office Visit [facility] [address] [place] [address] Maira Rush NP [address] [place] [address] [facility] Start: 08-04-2024 Screening for malignant neoplasm of breast Mammogram [facility] Start: 08-04-2024 Urine screening for protein Diabetes: Urine Protein Screening [facility] Start: 07-23-2024 Hemoglobin A1c measurement Diabetes: Hemoglobin A1C [facility] Start: 07-22-2024 Hemoglobin A1c measurement Diabetes: Hemoglobin A1C [facility] Start: 07-21-2024 End: 07-21-2024 Patient encounter procedure 07/21/2024 2:20 PM EST Office Visit [facility] [address] [place] [phone] Felton Allison MD [address] [place] [address] [facility] Start: 07-21-2024 End: 07-21-2024 Patient encounter procedure 07/21/2024 10:40 AM EST Office Visit [facility] [address] [place] [address] Felton Allison MD [address] [place] [address] [facility] Start: 07-09-2024 Hemoglobin A1c measurement Diabetes: Hemoglobin A1C [facility] Start: 05-28-2024 End: 05-28-2025 Creatinine [Mass/volume] in Serum or Plasma Creatinine Lab Routine 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 (CMS/HCC) Expected: 05/28/2024 (Approximate), Expires: 05/28/2025 [facility] Comment on above: Expected: 05/28/2024 (Approximate), Expi res: 05/28/2025 Start: 05-28-2024 End: 05-28-2025 CT Abdomen and Pelvis W contrast IV CT abdomen pelvis w IV contrast Imaging Routine 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 (CMS/HCC) Expected: 05/28/2024 (Approximate), Expires: 05/28/2025 [facility] Work Phone: Comment on above: Expected: 05/28/2024 (Approximate), Expi res: 05/28/2025 Start: 05-19-2024 End: 05-19-2024 Patient encounter procedure [facility] Comment on above: Obesity (BMI 30-39.9) (Primary Dx); COPD mixed type (CMS/HCC) Start: 05-18-2024 End: 05-18-2025 Creatinine [Mass/volume] in Serum or Plasma Creatinine Lab Routine Lung nodule, multiple Expected: 05/18/2024 (Approximate), Expires: 05/18/2025 [facility] Work Phone: Comment on above: Expected: 05/18/2024 (Approximate), Expi res: 05/18/2025 Start: 05-06-2024 End: 05-06-2024 Patient encounter procedure 05/06/2024 1:20 PM EST Office Visit [facility] [address] [place] [id number] Maira Rush NP [address] [place] [address] SANTO (obstructive sleep apnea) (Primary Dx); Lung nodule, multiple; COPD mixed type (CMS/HCC); Community acquired pneumonia, unspecified laterality; Primary hypertension (CMS/HCC); Atrial fibrillation, unspecified type (CMS/HCC); Type 2 diabetes mellitus without complication, with long-term current use of insulin (CMS/HCC); Tobacco user [facility] Comment on above: SANTO (obstructive sleep apnea) (Primary D x); Lung nodule, multiple; COPD mixed type (CMS/HCC); Community acquired pneumonia, unspecified laterality; Primary hypertension (CMS/HCC); Atrial fibrillation, unspecified type (CMS/HCC); Type 2 diabetes mellitus without complication, with long-term current use of insulin (CMS/HCC); Tobacco user Start: 04-22-2024 End: 04-22-2025 CT Chest W contrast IV CT chest w IV contrast Imaging Routine Tobacco user COPD mixed type (CMS/HCC) Lung nodule, multiple Lymphadenopathy, generalized Expected: 04/22/2024 (Approximate), Expires: 04/22/2025 [facility] Work Phone: Comment on above: Expected: 04/22/2024 (Approximate), Expi res: 04/22/2025 Start: 04-22-2024 End: 04-22-2024 Patient encounter procedure 04/22/2024 9:20 AM EST Office Visit [facility] [address] [place] [address] Maira Rush NP [address] [place] [address] [facility] Start: 04-21-2024 End: 04-21-2024 Patient encounter procedure 04/21/2024 2:40 PM EST Office Visit [facility] [address] [place] [address] Felton Allison MD [address] [place] [address] [facility] Start: 04-21-2024 End: 04-21-2025 25-hydroxyvitamin D3 [Mass/volume] in Serum or Plasma Vitamin D 25 hydroxy Total Lab Routine Type 2 diabetes mellitus with hyperglycemia, with long-term current use of insulin (CMS/HCC) Expected: 04/21/2024 (Approximate), Expires: 04/21/2025 [facility] Comment on above: Expected: 04/21/2024 (Approximate), Expi res: 04/21/2025 Start: 04-21-2024 End: 04-21-2025 C-peptide C-peptide Lab Routine Type 2 diabetes mellitus with hyperglycemia, with long-term current use of insulin (CMS/HCC) Expected: 04/21/2024 (Approximate), Expires: 04/21/2025 [facility] Work Phone: Comment on above: Expected: 04/21/2024 (Approximate), Expi res: 04/21/2025 Start: 04-21-2024 End: 04-21-2024 Chart abstracting 04/21/2024 Abstract [facility] [address] [place] [address] Felton Allison MD [address] [place] [address] [facility] Start: 04-21-2024 End: 04-21-2025 Lipid 1996 panel - Serum or Plasma Lipid panel Lab Routine Type 2 diabetes mellitus with hyperglycemia, with long-term current use of insulin (CMS/HCC) Expected: 04/21/2024 (Approximate), Expires: 04/21/2025 [facility] Comment on above: Expected: 04/21/2024 (Approximate), Expi res: 04/21/2025 Start: 04-21-2024 End: 04-21-2025 Microalbumin/Creatinine panel in random Urine Microalbumin / creatinine urine ratio Lab Routine Type 2 diabetes mellitus with hyperglycemia, with long-term current use of insulin (CMS/HCC) Expected: 04/21/2024 (Approximate), Expires: 04/21/2025 [facility] Comment on above: Expected: 04/21/2024 (Approximate), Expi res: 04/21/2025 Start: 04-21-2024 End: 04-21-2025 Renal function panel Renal function panel Lab Routine Type 2 diabetes mellitus with hyperglycemia, with long-term current use of insulin ([facility]) Expected: 04/21/2024 (Approximate), Expires: 04/21/2025 [facility] Comment on above: Expected: 04/21/2024 (Approximate), Expi res: 04/21/2025 Start: 04-03-2024 End: 04-03-2024 Patient encounter procedure 04/03/2024 9:20 AM EDT Office Visit [facility] [address] [place] [address] Malik Ramos, RODBUSTER-CNC MACHINE OPERATOR [address] [place] [address] Alley Lemus, RODBUSTER-CNC MACHINE OPERATOR [address] [place] [address] [facility] Start: 03-11-2024 End: 03-11-2024 Patient encounter procedure [facility] Comment on above: Arrived Start: 02-25-2024 End: 02-25-2024 Patient encounter procedure 02/25/2024 11:00 AM EDT Office Visit [facility] [address] [place] [address] Maira Rush NP [address] [place] [address] Arrived [facility] Comment on above: Arrived Start: 02-17-2024 End: 02-16-2025 CBC W Auto Differential panel - Blood CBC and differential Lab Routine Dizziness and giddiness Expected: 02/17/2024 (Approximate), Expires: 02/16/2025 [facility] Comment on above: Expected: 02/17/2024 (Approximate), Expi res: 02/16/2025 Start: 02-17-2024 End: 02-16-2025 Comprehensive metabolic 2000 panel - Serum or Plasma Comprehensive metabolic panel Lab Routine Type 2 diabetes mellitus with hyperglycemia (CMS/HCC) Primary hypertension (CMS/HCC) Edema of extremities Type 2 diabetes mellitus without complication, with long-term current use of insulin (CMS/HCC) Vitamin D deficiency Dizziness and giddiness Expected: 02/17/2024 (Approximate), Expires: 02/16/2025 [facility] Comment on above: Expected: 02/17/2024 (Approximate), Expi res: 02/16/2025 Start: 02-17-2024 End: 02-16-2025 Hemoglobin A1c/Hemoglobin.total in Blood Hemoglobin A1c Lab Routine Type 2 diabetes mellitus with hyperglycemia (CMS/HCC) Expected: 02/17/2024 (Approximate), Expires: 02/16/2025 [facility] Comment on above: Expected: 02/17/2024 (Approximate), Expi res: 02/16/2025 Start: 02-17-2024 End: 02-16-2025 Magnesium [Mass/volume] in Serum or Plasma Magnesium Lab Routine Dizziness and giddiness Expected: 02/17/2024 (Approximate), Expires: 02/16/2025 [facility] Work Phone: Comment on above: Expected: 02/17/2024 (Approximate), Expi res: 02/16/2025 Start: 02-17-2024 End: 02-16-2025 Urinalysis complete panel - Urine Urinalysis with reflex microscopic (clean catch) Lab Routine Type 2 diabetes mellitus with hyperglycemia (CMS/HCC) Primary hypertension (CMS/HCC) Tobacco user Dizziness and giddiness Expected: 02/17/2024 (Approximate), Expires: 02/16/2025 [facility] Comment on above: Expected: 02/17/2024 (Approximate), Expi res: 02/16/2025 Start: 02-02-2024 COVID-19 Vaccine () COVID-19 Vaccine () [facility] Start: 02-02-2024 Influenza vaccination Influenza Vaccine [facility] Start: 11-05-2023 Hemoglobin A1c measurement Diabetes: Hemoglobin A1C [facility] Start: 10-16-2023 End: 10-16-2023 Patient encounter procedure 10/16/2023 9:20 AM EDT Office Visit [facility] [address] [place] [address] Maira Rush NP [address] [place] [address] [facility] Start: 08-16-2023 End: 09-15-2024 MG Breast - bilateral Screening Bilateral screening mammogram Imaging Routine Encounter for screening mammogram for malignant neoplasm of breast Expected: 08/16/2023 (Approximate), Expires: 09/15/2024 [facility] Comment on above: Expected: 08/16/2023 (Approximate), Expi res: 09/15/2024 Start: 08-10-2023 Urine screening for protein Diabetes: Urine Protein Screening [facility] Start: 07-18-2023 End: 07-18-2023 Patient encounter procedure 07/18/2023 2:20 PM EST Office Visit [facility] [address] [place] [address] Maira Rush, ARLEN [address] [place] [address] Type 2 diabetes mellitus with diabetic neuropathy, with long-term current use of insulin ([facility]/HCC) (Primary Dx); Primary hypertension (CMS/HCC); Gastroesophageal reflux disease, unspecified whether esophagitis present; Vitamin D deficiency; Type 2 diabetes mellitus with complication, without long-term current use of insulin (CMS/HCC); Mixed hyperlipidemia (CMS/HCC); Encounter for screening mammogram for malignant neoplasm of breast [facility] Comment on above: Type 2 diabetes mellitus with diabetic n europathy, with long-term current use of insulin (CMS/HCC) [...] D deficiency Expected: 07/18/2023 (Approximate), Expires: 07/18/2024 [facility] Comment on above: Expected: 07/18/2023 (Approximate), Expi res: 07/18/2024 Start: 07-18-2023 End: 07-18-2024 CBC W Auto Differential panel - Blood CBC and differential Lab Routine Gastroesophageal reflux disease, unspecified whether esophagitis present Expected: 07/18/2023 (Approximate), Expires: 07/18/2024 [facility] Work Phone: Comment on above: Expected: 07/18/2023 (Approximate), Expi res: 07/18/2024 Start: 07-18-2023 End: 07-18-2024 Comprehensive metabolic 2000 panel - Serum or Plasma Comprehensive metabolic panel Lab Routine Primary hypertension ([facility]/HCC) Type 2 diabetes mellitus with complication, without long-term current use of insulin ([facility]) Mixed hyperlipidemia (CMS/HCC) Expected: 07/18/2023 (Approximate), Expires: 07/18/2024 [facility] Comment on above: Expected: 07/18/2023 (Approximate), Expi res: 07/18/2024 Start: 07-18-2023 End: 07-18-2024 Hemoglobin A1c/Hemoglobin.total in Blood Hemoglobin A1c Lab Routine Type 2 diabetes mellitus with complication, without long-term current use of insulin (CMS/HCC) Expected: 07/18/2023 (Approximate), Expires: 07/18/2024 [facility] Comment on above: Expected: 07/18/2023 (Approximate), Expi res: 07/18/2024 Start: 07-18-2023 End: 07-18-2024 Lipid 1996 panel - Serum or Plasma Lipid panel Lab Routine Mixed hyperlipidemia (CMS/HCC) Expected: 07/18/2023 (Approximate), Expires: 07/18/2024 [facility] Comment on above: Expected: 07/18/2023 (Approximate), Expi res: 07/18/2024 Start: 07-18-2023 End: 07-18-2024 Microalbumin/Creatinine panel in random Urine Microalbumin / creatinine, urine ratio Lab Routine Type 2 diabetes mellitus with complication, without long-term current use of insulin ([facility]) Expected: 07/18/2023 (Approximate), Expires: 07/18/2024 [facility] Comment on above: Expected: 07/18/2023 (Approximate), Expi res: 07/18/2024 Start: 07-18-2023 End: 07-18-2024 Urinalysis complete panel - Urine Urinalysis with reflex microscopic (clean catch) Lab Routine Type 2 diabetes mellitus with complication, without long-term current use of insulin ([facility]) Expected: 07/18/2023 (Approximate), Expires: 07/18/2024 [facility] Comment on above: Expected: 07/18/2023 (Approximate), Expi res: 07/18/2024 Start: 06-19-2023 Screening for malignant neoplasm of breast Mammogram [facility] Start: 02-01-2023 Influenza vaccination Influenza Vaccine (#1) [facility] Start: 01-07-2019 Hemoglobin A1c measurement Diabetes: Hemoglobin A1C [facility] Start: 2009 Administration of varicella zoster vaccine Zoster (Shingles) Vaccine (1 of 2) [facility] Start: 1989 Screening for malignant neoplasm of cervix [facility] Start: 1980 Screening for malignant neoplasm of cervix Pap Smear [facility] Start: 1977 Adult BMI Follow Up Plan Adult BMI Follow Up Plan [facility] Start: 1977 Diabetic foot examination Diabetic Foot Exam [facility] Start: 1971 Depression Screening Depression Screening [facility] Start: 1969 Glaucoma screening Diabetes: Retinopathy Screening [facility] Start: 1959 Glaucoma screening Diabetic Ophthalmology Exam [facility] Start: 1959 Screening for malignant neoplasm of colon [facility] Start: 1959 Tobacco Counseling Tobacco Counseling [facility] Immunizations Immunization Date Immunization Notes Care Provider Fa cility 05-06-2024 influenza, high dose seasonal, preservative-free Maira Aichholz DIAGNOSTIC TECHNICIAN Work Phone: [facility] 04-05-2022 influenza, injectabl e, quadrivalent, preservative free Maira Aichholz DIAGNOSTIC TECHNICIAN Work Phone: [facility] 04-05-2022 pneumococcal polysaccharide vaccine, 23 valent Maira Aichholz DIAGNOSTIC TECHNICIAN Work Phone: [facility] 04-05-2022 influenza virus vacc ine, unspecified formulation Maira Aichholz DIAGNOSTIC TECHNICIAN Work Phone: [facility] 11-23-2021 diphtheria, tetanus toxoids and pertussis vaccine Maira Aichholz DIAGNOSTIC TECHNICIAN Work Phone: [facility] 03-24-2020 tetanus toxoid, redu joaquin diphtheria toxoid, and acellular pertussis vaccine, adsorbed Maira Aichholz DIAGNOSTIC TECHNICIAN Work Phone: [facility] 03-25-2017 Influenza, injectabl e, Madin [place] Canine Kidney, preservative free, quadrivalent Maira Aichholz DIAGNOSTIC TECHNICIAN Work Phone: [facility] Healthcare Payers Date Payer Category Payer Medicaid [employer] [place] [employer] [id number] 2017-Present [address] [place] [id number] [id number] 2017 Medicaid (Managed Care) [facility] MEDICAID [id number] 2003 Medicaid HMO [place] [facility] [id number] 1959 Unknown [id number] 2.16.840.1.552677.3.579.2. 647 1959 Unknown [id number] 2.16.840.1.010758.3.579.2. 647 1959 Unknown [id number] 2.16.840.1.728810.3.579.2. 593 1959 Unknown [id number] 2.16.840.1.183163.3.579.2. 593 1959 Unknown [id number] 2.16.840.1.732192.3.579.2. 593 1959 Unknown [id number] 2.16.840.1.781849.3.579.2. 593 1959 Unknown [id number] 2.16.840.1.700710.3.579.2. 593 1959 Unknown [id number] 2.16.840.1.172878.3.579.2. 593 1959 Unknown [id number] 2.16.840.1.490753.3.579.2. 593 1959 Unknown [id number] 2.16.840.1.562545.3.579.2. 1286 1959 Unknown [id number] 2.16.840.1.753163.3.579.2. 1286 1959 Unknown [id number] 2.16.840.1.872667.3.579.2. 128 1959 Unknown [id number] 2.16.840.1.719654.3.579.2. 1285 1959 Unknown [id number] 2.16.840.1.620836.3.579.2. 1285 1959 Unknown [id number] 2.16.840.1.804333.3.579.2. 1285 1959 Unknown [id number] 2.16.840.1.331159.3.579.2. 9 1959 Unknown [id number] 2.16.840.1.123425.3.579.2. 1258 1959 Unknown [id number] 2.16.840.1.139880.3.579.2. 1258 1959 Unknown [id number] 2.16.840.1.855779.3.579.2. 1258 1959 Unknown [id number] 2.16.840.1.361914.3.579.2. 1258 1959 Unknown [id number] 2.16.840.1.996424.3.579.2. 9 1959 Unknown [id number] 2.16.840.1.556027.3.579.2. 1258 1959 Unknown [id number] 2.16.840.1.870617.3.579.2. 1258 1959 Unknown [id number] 2.16.840.1.695301.3.579.2. 1258 1959 Unknown [id number] 2.16.840.1.289830.3.579.2. 9 1959 Unknown [id number] Unknown Social History Date Type Detail Facility Start: 07-15-2023 Tobacco smoking status [facility] Ex-smoker [facility] Start: 06-03-1982 End: 04-03-2022 History of tobacco use Current smoker [facility] Start: 06-03-1982 End: 04-03-2022 History of tobacco use Cigarette Smoker [facility] Start: 07-15-2023 End: 10-16-2023 Cigarettes smoked current (pack per day) - Reported 0.5 [facility] Start: 07-18-2023 End: 05-28-2024 Alcohol intake Ex-drinker (finding) [facility] Start: 06-29-2023 End: 10-16-2023 Tobacco use panel [facility] Start: 07-15-2023 Alcohol Comment coffee 1-2 cups per day [facility] Start: 1960 Sex Assigned At Not on file [facility] Start: 04-03-2022 Tobacco smoking status NHIS Smokes tobacco daily [facility] Start: 03-20-2024 Tobacco use and exposure Smokeless tobacco non-user [facility] Has the [place], or water [employer] threatened to shut off services in your home in past 12Mo No [facility] In the past 12 month s, has lack of transportation kept you from medical appointments or from getting medications? No [facility] Start: 01-06-2015 Sex [facility] (finding[facility] Procedure Code Equipment Code Equipment Origin al Text Equipment Identifier Dates [id number] Start: 06-24-2023 Goals Date Patient Goal Desired Activity /State Personal health goal Comment on above: Formatting of this n ote might be different from the original. Evaluation of progress towards goal: Patient is agreeable to SNF for therapy. Clinical Notes 06-07-2022 to 05-28-2024 Maira Rush NP - 05/28/2024 12:06 PM Nimco Rush NP - 05/28/2024 12:02 PM PRESTON HOPPER - 05/28/2024 11:30 AM Nimco Rush NP - 05/28/2024 11:30 AM ESTPatient Instructions Note Date & Type Note Facility 05-28-2024 History of Presen t illness Narrative Associated Problem(s): COPD with acute exacerbation ([facility]) Recent hospitalization with pneumonia in the last few months Is on home O2, also with nebs at home, states no difference in her wheezing with or without the neb UTD on flu shot, not on COVID Had CT chest on 05/25/24 but did not have sxs at that time Her is in a alf, possible exposure to something there Differentials: atypical pneumonia, COPD exac, COVID/FLU/RSV?? Associated Problem(s): Obesity (BMI 30-39.9) Discussed with patient their BMI (actual, verses recommended). We have also discussed lifestyle modifications: attempts to perform physical activity as chronic conditions allow, also to monitor dietary intake: increasing protein/fruits/veggies and lowering carb intake (unless contraindicated). Limit sodas, juices, and sugary drinks. Pt started last night feeling run down, hot and cold, achy, sinus pressure, runny nose, tightness in chest, sob, inhalers are not working for her, 02 at 2L at home, ears still bother her, coughing up green mucus, wheezing Images from the original note were not included. Denae Dior is a 63 y.o. female presents with chief complaint of Cough and URI HPI: Cough This is a new problem. The current episode started yesterday. The problem has been rapidly worsening. The problem occurs constantly. The cough is Productive of purulent sputum. Associated symptoms include chest pain, chills, myalgias, nasal congestion, shortness of breath and wheezing. Pertinent negatives include no ear congestion, ear pain, eye redness, fever, headaches, heartburn, hemoptysis, postnasal drip, rash, rhinorrhea, sore throat, sweats or weight loss. Nothing aggravates the symptoms. She has tried a beta-agonist inhaler and steroid inhaler for the symptoms. The treatment provided no relief. Her past medical history is significant for COPD. There is no history of emphysema or environmental allergies. URI This is a new problem. The current episode started yesterday. The problem has been rapidly worsening. There has been no fever. Associated symptoms include chest pain, coughing, vomiting (secondary to cough) and wheezing. Pertinent negatives include no abdominal pain, congestion, diarrhea, dysuria, ear pain, headaches, joint swelling, nausea, plugged ear sensation, rash, rhinorrhea or sore throat. She has tried inhaler use for the symptoms. The treatment provided no relief. SUBJECTIVE: MEDICATIONS: Current Outpatient Medications Medication Instructions albuterol 2.5 mg, Nebulization, Every 6 hours PRN Alcohol Swabs (Easy Touch Alcohol Prep Medium) 70 % pads 1 each, 4 times daily aspirin (ASPIRIN LOW DOSE) 81 mg, Oral, Daily budesonide-formoterol (Symbicort) 160-4.5 MCG/ACT inhaler 2 puffs, Inhalation, 2 times daily, Rinse mouth after use Calcium+D3 500-10 MG-MCG tablet 1 tablet, 2 times daily carvedilol (Coreg) 12.5 MG tablet 1 tablet, 2 times daily with meals Continuous Glucose Service Center Supervisor (FreeStyle Julisa 2 [place]) device 1 kit, Does not apply, Every 14 days Continuous Glucose Service Center Supervisor (FreeStyle Julisa 2 [place]) device USE DIRECTED Continuous Glucose Sensor (FreeStyle Jluisa 2 Sensor) misc 1 kit, Does not apply, Every 14 days empagliflozin (JARDIANCE) 25 mg, Oral, Daily furosemide (LASIX) 20 mg, Every morning gabapentin (NEURONTIN) 600 mg, Oral, 3 times daily insulin lispro (HumaLOG [place] KwikPen) 100 UNIT/ML pen INJECT TEN UNITS SUBCUTANEOUSLY (UNDER THE SKIN) THREE TIMES DAILY (IN THE MORNING, at noon, and IN THE EVENING) WITH MEALS insulin lispro (HUMALOG) 2-10 Units, 3 times daily with meals Lantus SoloStar 100 UNIT/ML pen INJECT 40 UNITS SUBCUTANEOUSLY (UNDER THE SKIN) losartan (COZAAR) 100 mg, Oral, Daily NovoLOG FLEXPEN 100 UNIT/ML pen INJECT 15-18-20 UNITS SUBCUTANEOUSLY TO MEAL SIZE PLUS ISSUED SLIDING SCALE *EXPECTED DAILY DOSAGE: 70 UNITS* pantoprazole (PROTONIX) 40 mg, Oral, Daily PARoxetine (PAXIL) 20 mg, Oral, Every morning potassium chloride ER (Micro-K) 10 MEQ ER capsule 10 mEq, Daily rosuvastatin (CRESTOR) 5 mg, Oral, Every evening spironolactone (ALDACTONE) 25 mg, Oral, Twice a day (morning and mid-day) Sure Comfort Pen [place] 32G X 4 MM misc 1 each, Subcutaneous, As needed tiotropium (Spiriva Respimat) 2.5 MCG/ACT inhaler 2 puffs, Inhalation, Daily True Metrix Blood Glucose Test test strip 1 each, As needed Xarelto 20 MG tablet 1 tablet, Daily with evening meal ALLERGIES: Allergies Allergen Reactions Ciprofloxacin GI intolerance Metronidazole GI intolerance Penicillins GI intolerance Sulfamethoxazole GI intolerance Trimethoprim GI intolerance REVIEW OF SYMPTOMS: Review of Systems Constitutional: Positive for chills. Negative for appetite change, fever and weight loss. HENT: Negative for congestion, ear pain, postnasal drip, rhinorrhea and sore throat. Eyes: Negative for pain, discharge, redness and visual disturbance. Respiratory: Positive for cough, shortness of breath and wheezing. Negative for hemoptysis. Cardiovascular: Positive for chest pain. Negative for palpitations and leg swelling. Gastrointestinal: Positive for vomiting (secondary to cough). Negative for abdominal pain, blood in stool, constipation, diarrhea, heartburn and nausea. Genitourinary: Negative for difficulty urinating, dysuria and frequency. Musculoskeletal: Positive for myalgias. Negative for arthralgias, back pain and joint swelling. Skin: Negative for rash and wound. Neurological: Negative for dizziness, tremors, seizures, syncope and headaches. Psychiatric/Behavioral: Negative for behavioral problems, self-injury and suicidal ideas. The patient is not nervous/anxious. Hematological: Does not bruise/bleed easily. Endocrine: Negative for polydipsia, polyphagia and polyuria. Allergic/Immunologic: Negative for environmental allergies and food allergies. PAST MEDICAL HISTORY Past Medical History: Diagnosis Date Acute pancreatitis without necrosis or infection, unspecified Anxiety and depression ([facility]) 07/18/2023 Atrial fibrillation ([facility]) 07/18/2023 Body mass index (BMI) 40.0-44.9, adult ([facility]) COPD mixed type ([facility]) 05/23/2023 Dietary counseling and surveillance Drug-induced acute pancreatitis 07/18/2023 Edema of extremities 07/18/2023 Essential (primary) hypertension ([facility]) 12/04/2010 GERD (gastroesophageal reflux disease) 07/18/2023 HLD (hyperlipidemia) ([facility]) 07/18/2023 Hx of being hospitalized PNEUMONIA care home (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 ([facility]) Medical non-compliance 07/18/2023 Morbid obesity with body mass index (BMI) of 40.0 to 49.9 ([facility]) 07/18/2023 Neuropathy, diabetic ([facility]) 07/18/2023 SANTO (obstructive sleep apnea) 07/18/2023 Osteoporosis ([facility]) 07/18/2023 Seasonal allergies 07/18/2023 Tobacco user 07/18/2023 Type 2 diabetes mellitus with complication, without long-term current use of insulin ([facility]) 07/18/2023 Urge and stress incontinence 07/18/2023 Vitamin D deficiency 07/18/2023 Past Surgical History: Procedure Laterality Date APPENDECTOMY CHOLECYSTECTOMY HYSTERECTOMY Complete not due to cancer TONSILLECTOMY family history includes Diabetes in her brother and mother; Heart disease in her mother; Hypertension in her mother; Stroke in her father. OBJECTIVE: Visit Vitals BP 110/66 (BP Location: Left arm, Patient Position: Sitting, BP Cuff Size: Adult long) Pulse 73 Temp 98.1 F (Temporal) Resp 22 Ht 5' 6 Wt 203 lb 6.4 oz SpO2 92% BMI 32.83 kg/m Smoking Status Former BSA 2.07 m Physical Exam Vitals and nursing note reviewed. Constitutional: General: She is not in acute distress. Appearance: Normal appearance. She is obese. She is ill-appearing (mod). She is not diaphoretic. HENT: Head: Normocephalic and atraumatic. Right Ear: Tympanic membrane, ear canal and external ear normal. Left Ear: Tympanic membrane, ear canal and external ear normal. Nose: Rhinorrhea present. No congestion. Mouth/Throat: Mouth: Mucous membranes are dry. Pharynx: No oropharyngeal exudate or posterior oropharyngeal erythema. Eyes: Extraocular Movements: Extraocular movements intact. Conjunctiva/sclera: Conjunctivae normal. Cardiovascular: Rate and Rhythm: Normal rate and regular rhythm. Pulses: Normal pulses. Heart sounds: Normal heart sounds. Pulmonary: Breath sounds: Wheezing (exp) present. Comments: Sl labored Chest: Chest wall: No tenderness. Abdominal: General: Bowel sounds are normal. There is no distension. Palpations: Abdomen is soft. There is no mass. Tenderness: There is no abdominal tenderness. Musculoskeletal: General: Normal range of motion. Cervical back: Normal range of motion and neck supple. Right lower leg: No edema. Left lower leg: No edema. Lymphadenopathy: Cervical: No cervical adenopathy (generalized tenderness). Skin: General: Skin is warm and dry. Capillary Refill: Capillary refill takes 2 to 3 seconds. Findings: No rash. Neurological: General: No focal deficit present. Mental Status: She is alert and oriented to person, place, and time. Psychiatric: Mood and Affect: Mood normal. Behavior: Behavior normal. Thought Content: Thought content normal. Judgment: Judgment normal. 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 (CMS/HCC) Noted on past CT scans, felt to be adenoma, however is getting larger in size Will order CT scan adrenal gland protocol documented in this encounter [facility] 05-19-2024 History of Presen t illness Narrative Associated Problem(s): Right wrist pain No hx of trauma, may be aggravated by recent splinting and cosmo wrap of right middle finger Cosmo wrap applied, leave intact (may remove to shower) for 72 hours, then remove and see if better No NSAIDS d/t anti coagulation, may use ice to affected area 3-4 times daily Fu if not better Pt states she woke up last Saturday and her middle finger was painful and swollen she had gone to er after coming home from er swelling and pain was going up her right hand into her wrists. Images from the original note were not included. Denae Dior is a 63 y.o. female presents with chief complaint of Joint Swelling HPI: Er fu for swelling to hand/finger: See ER notes ([facility]), had neg xray Wrist Pain The pain is present in the right wrist. This is a new problem. The current episode started yesterday. There has been no history of extremity trauma. The problem occurs constantly. The problem has been unchanged. The quality of the pain is described as sharp. The pain is at a severity of 8/10. The pain is moderate. Associated symptoms include joint swelling and a limited range of motion. Pertinent negatives include no fever, inability to bear weight, joint locking, numbness, stiffness or tingling. The symptoms are aggravated by activity. She has tried nothing for the symptoms. Family history does not include rheumatoid arthritis. Her past medical history is significant for diabetes and osteoarthritis. SUBJECTIVE: MEDICATIONS: Current Outpatient Medications Medication Instructions albuterol 2.5 mg, Nebulization, Every 6 hours PRN Alcohol Swabs (Easy Touch Alcohol Prep Medium) 70 % pads 1 each, 4 times daily aspirin (ASPIRIN LOW DOSE) 81 mg, Oral, Daily budesonide-formoterol (Symbicort) 160-4.5 MCG/ACT inhaler 2 puffs, Inhalation, 2 times daily, Rinse mouth after use Calcium+D3 500-10 MG-MCG tablet 1 tablet, 2 times daily carvedilol (Coreg) 12.5 MG tablet 1 tablet, 2 times daily with meals cholecalciferol (VITAMIN D-3) 50 mcg, Oral, Daily Continuous Glucose Service Center Supervisor (FreeStyle Julisa 2 [place]) device 1 kit, Does not apply, Every 14 days Continuous Glucose Service Center Supervisor (FreeStyle Julisa 2 [place]) device USE DIRECTED Continuous Glucose Sensor (FreeStyle Julisa 2 Sensor) misc 1 kit, Does not apply, Every 14 days empagliflozin (JARDIANCE) 25 mg, Oral, Daily furosemide (LASIX) 20 mg, Every morning gabapentin (NEURONTIN) 600 mg, Oral, 3 times daily insulin lispro (HumaLOG [place] KwikPen) 100 UNIT/ML pen INJECT TEN UNITS SUBCUTANEOUSLY (UNDER THE SKIN) THREE TIMES DAILY (IN THE MORNING, at noon, and IN THE EVENING) WITH MEALS insulin lispro (HUMALOG) 2-10 Units, 3 times daily with meals Lantus SoloStar 100 UNIT/ML pen INJECT 40 UNITS SUBCUTANEOUSLY (UNDER THE SKIN) losartan (COZAAR) 100 mg, Oral, Daily pantoprazole (PROTONIX) 40 mg, Oral, Daily PARoxetine (PAXIL) 20 mg, Oral, Every morning potassium chloride ER (Micro-K) 10 MEQ ER capsule 10 mEq, Daily rosuvastatin (CRESTOR) 5 mg, Oral, Every evening spironolactone (ALDACTONE) 25 mg, Oral, Twice a day (morning and mid-day) Sure Comfort Pen [place] 32G X 4 MM misc 1 each, Subcutaneous, As needed tiotropium (Spiriva Respimat) 2.5 MCG/ACT inhaler 2 puffs, Inhalation, Daily True Metrix Blood Glucose Test test strip 1 each, As needed Xarelto 20 MG tablet 1 tablet, Daily with evening meal ALLERGIES: Allergies Allergen Reactions Ciprofloxacin GI intolerance Metronidazole GI intolerance Penicillins GI intolerance Sulfamethoxazole GI intolerance Trimethoprim GI intolerance REVIEW OF SYMPTOMS: Review of Systems Constitutional: Negative for appetite change, chills and fever. HENT: Negative for congestion, ear pain and sore throat. Eyes: Negative for pain, discharge, redness and visual disturbance. Respiratory: Negative for cough, shortness of breath and wheezing. Cardiovascular: Negative for chest pain, palpitations and leg swelling. Gastrointestinal: Negative for abdominal pain, blood in stool, constipation, diarrhea, nausea and vomiting. Genitourinary: Negative for difficulty urinating, dysuria and frequency. Musculoskeletal: Positive for arthralgias. Negative for back pain, joint swelling, myalgias and stiffness. Skin: Negative for rash and wound. Neurological: Negative for dizziness, tingling, tremors, seizures, syncope, numbness and headaches. Psychiatric/Behavioral: Negative for behavioral problems, self-injury and suicidal ideas. The patient is not nervous/anxious. Hematological: Does not bruise/bleed easily. Endocrine: Negative for polydipsia, polyphagia and polyuria. Allergic/Immunologic: Negative for environmental allergies and food allergies. PAST MEDICAL HISTORY Past Medical History: Diagnosis Date Acute pancreatitis without necrosis or infection, unspecified Anxiety and depression ([facility]) 07/18/2023 Atrial fibrillation ([facility]) 07/18/2023 Body mass index (BMI) 40.0-44.9, adult ([facility]) COPD mixed type ([facility]) 05/23/2023 Dietary counseling and surveillance Drug-induced acute pancreatitis 07/18/2023 Edema of extremities 07/18/2023 Essential (primary) hypertension ([facility]) 12/04/2010 GERD (gastroesophageal reflux disease) 07/18/2023 HLD (hyperlipidemia) ([facility]) 07/18/2023 Hx of being hospitalized PNEUMONIA care home (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 ([facility]) Medical non-compliance 07/18/2023 Morbid obesity with body mass index (BMI) of 40.0 to 49.9 ([facility]) 07/18/2023 Neuropathy, diabetic ([facility]) 07/18/2023 SANTO (obstructive sleep apnea) 07/18/2023 Osteoporosis ([facility]) 07/18/2023 Seasonal allergies 07/18/2023 Tobacco user 07/18/2023 Type 2 diabetes mellitus with complication, without long-term current use of insulin ([facility]) 07/18/2023 Urge and stress incontinence 07/18/2023 Vitamin D deficiency 07/18/2023 Past Surgical History: Procedure Laterality Date APPENDECTOMY CHOLECYSTECTOMY HYSTERECTOMY Complete not due to cancer TONSILLECTOMY family history includes Diabetes in her brother and mother; Heart disease in her mother; Hypertension in her mother; Stroke in her father. OBJECTIVE: Visit Vitals BP 120/66 (BP Location: Left arm, Patient Position: Sitting, BP Cuff Size: Adult long) Pulse 71 Temp 98.7 F (Temporal) Resp 18 Ht 5' 6 Wt 209 lb 3.2 oz SpO2 93% BMI 33.77 kg/m Smoking Status Former BSA 2.1 m Physical Exam Vitals and nursing note reviewed. Constitutional: General: She is not in acute distress. Appearance: Normal appearance. HENT: Head: Normocephalic and atraumatic. Right Ear: External ear normal. Left Ear: External ear normal. Nose: Nose normal. Mouth/Throat: Mouth: Mucous membranes are moist. Eyes: Extraocular Movements: Extraocular movements intact. Conjunctiva/sclera: Conjunctivae normal. Cardiovascular: Rate and Rhythm: Normal rate and regular rhythm. Pulses: Normal pulses. Heart sounds: Normal heart sounds. Pulmonary: Effort: Pulmonary effort is normal. Breath sounds: Wheezing (exp) present. Abdominal: General: Bowel sounds are normal. There is no distension. Palpations: Abdomen is soft. There is no mass. Tenderness: There is no abdominal tenderness. Musculoskeletal: General: Swelling present. Cervical back: Normal range of motion and neck supple. Comments: Right wrist: +radial/ulnar pulse Mild STS to ulnar aspect of right wrist, no fluctuance, no crepitus +tender to touch, no palp mass noted, sl limited ROM Mild tenderness to IP joint of right middle finger Skin: General: Skin is warm and dry. Capillary Refill: Capillary refill takes 2 to 3 seconds. Findings: No rash. Neurological: General: No focal deficit present. Mental Status: She is alert and oriented to person, place, and time. Psychiatric: Mood and Affect: Mood normal. Behavior: Behavior normal. Thought Content: Thought content normal. Judgment: Judgment normal. ASSESSMENT AND PLAN: Follow up if symptoms worsen or fail to improve. Problem List Items Addressed This Visit Obesity (BMI 30-39.9) Discussed with patient their BMI (actual, verses recommended). We have also discussed lifestyle modifications: attempts to perform physical activity as chronic conditions allow, also to monitor dietary intake: increasing protein/fruits/veggies and lowering carb intake (unless contraindicated). Limit sodas, juices, and sugary drinks. Has been demonstrating weight loss: likely related to uncontrolled DM as well as stress from S.O. in alf Right wrist pain - Primary No hx of trauma, may be aggravated by recent splinting and cosmo wrap of right middle finger Cosmo wrap applied, leave intact (may remove to shower) for 72 hours, then remove and see if better No NSAIDS d/t anti coagulation, may use ice to affected area 3-4 times daily Fu if not better Associated Problem(s): Obesity (BMI 30-39.9) Discussed with patient their BMI (actual, verses recommended). We have also discussed lifestyle modifications: attempts to perform physical activity as chronic conditions allow, also to monitor dietary intake: increasing protein/fruits/veggies and lowering carb intake (unless contraindicated). Limit sodas, juices, and sugary drinks. Has been demonstrating weight loss: likely related to uncontrolled DM as well as stress from S.O. in alf documented in this encounter [facility] 05-19-2024 Instructions Maira Rush NP - 05/19/2024 2:00 PM EST Cosmo wrap to right wrist for [address] ice to affected area 3-4 times daily for 20 minutes each Follow up if not better documented in this encounter [facility] 05-06-2024 History of Presen t illness Narrative Pt c/o of ear pain and being plugged up. She also has concerns about her feet swelling up. Images from the original note were not included. Denae Dior is a 63 y.o. female presents with chief complaint of No chief complaint on file. HPI: Recovering from pneumonia +smokes ( currently 5 cigs daily) , dyspnea w activity, +wheeze occ, w lying down Due for fu CT chest d/t lung nodules, no hemoptysis noted Feels like feet are swelling, not visible swelling, urination is good. No chest pain/pressure Both ears feel plugged, L>R, intermittent ringing, occ feels off balance, sometimes not hearing well, has to ask for repeat, no acute pain, no pressure SUBJECTIVE: MEDICATIONS: Current Outpatient Medications Medication Instructions albuterol 2.5 mg, Nebulization, Every 6 hours PRN Alcohol Swabs (Easy Touch Alcohol Prep Medium) 70 % pads 1 each, 4 times daily aspirin (ASPIRIN LOW DOSE) 81 mg, Oral, Daily budesonide-formoterol (Symbicort) 160-4.5 MCG/ACT inhaler 2 puffs, Inhalation, 2 times daily, Rinse mouth after use Calcium+D3 500-10 MG-MCG tablet 1 tablet, 2 times daily carvedilol (Coreg) 12.5 MG tablet 1 tablet, 2 times daily with meals cholecalciferol (VITAMIN D-3) 50 mcg, Oral, Daily Continuous Glucose Service Center Supervisor (FreeStyle Julisa 2 [place]) device 1 kit, Does not apply, Every 14 days Continuous Glucose Service Center Supervisor (FreeStyle Julisa 2 [place]) device USE DIRECTED Continuous Glucose Sensor (FreeStyle Julisa 2 Sensor) misc 1 kit, Does not apply, Every 14 days empagliflozin (JARDIANCE) 25 mg, Oral, Daily furosemide (LASIX) 20 mg, Every morning gabapentin (NEURONTIN) 600 mg, Oral, 3 times daily insulin lispro (HumaLOG [place] KwikPen) 100 UNIT/ML pen INJECT TEN UNITS SUBCUTANEOUSLY (UNDER THE SKIN) THREE TIMES DAILY (IN THE MORNING, at noon, and IN THE EVENING) WITH MEALS insulin lispro (HUMALOG) 2-10 Units, 3 times daily with meals Lantus SoloStar 100 UNIT/ML pen INJECT 40 UNITS SUBCUTANEOUSLY (UNDER THE SKIN) losartan (COZAAR) 100 mg, Oral, Daily pantoprazole (PROTONIX) 40 mg, Oral, Daily PARoxetine (PAXIL) 20 mg, Oral, Every morning potassium chloride ER (Micro-K) 10 MEQ ER capsule 10 mEq, Daily rosuvastatin (CRESTOR) 5 mg, Oral, Every evening spironolactone (ALDACTONE) 25 mg, Oral, Twice a day (morning and mid-day) Sure Comfort Pen [place] 32G X 4 MM misc 1 each, Subcutaneous, As needed tiotropium (Spiriva Respimat) 2.5 MCG/ACT inhaler 2 puffs, Inhalation, Daily True Metrix Blood Glucose Test test strip 1 each, As needed Xarelto 20 MG tablet 1 tablet, Daily with evening meal ALLERGIES: Allergies Allergen Reactions Ciprofloxacin GI intolerance Metronidazole GI intolerance Penicillins GI intolerance Sulfamethoxazole GI intolerance Trimethoprim GI intolerance REVIEW OF SYMPTOMS: Review of Systems Constitutional: Negative for appetite change, chills and fever. HENT: Positive for hearing loss. Negative for congestion, ear pain and sore throat. Eyes: Negative for pain, discharge, redness and visual disturbance. Respiratory: Positive for cough, shortness of breath and wheezing. Cardiovascular: Positive for leg swelling. Negative for chest pain and palpitations. Gastrointestinal: Negative for abdominal pain, blood in stool, constipation, diarrhea, nausea and vomiting. Genitourinary: Negative for difficulty urinating, dysuria and frequency. Musculoskeletal: Negative for arthralgias, back pain, joint swelling and myalgias. Skin: Negative for rash and wound. Neurological: Negative for dizziness, tremors, seizures, syncope and headaches. Psychiatric/Behavioral: Negative for behavioral problems, self-injury and suicidal ideas. The patient is not nervous/anxious. Hematological: Does not bruise/bleed easily. Endocrine: Negative for polydipsia, polyphagia and polyuria. Allergic/Immunologic: Negative for environmental allergies and food allergies. PAST MEDICAL HISTORY Past Medical History: Diagnosis Date Acute pancreatitis without necrosis or infection, unspecified Anxiety and depression ([facility]) 07/18/2023 Atrial fibrillation ([facility]) 07/18/2023 Body mass index (BMI) 40.0-44.9, adult ([facility]) COPD mixed type ([facility]) 05/23/2023 Dietary counseling and surveillance Drug-induced acute pancreatitis 07/18/2023 Edema of extremities 07/18/2023 Essential (primary) hypertension ([facility]) 12/04/2010 GERD (gastroesophageal reflux disease) 07/18/2023 HLD (hyperlipidemia) ([facility]) 07/18/2023 Hx of being 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 ([facility]) Medical non-compliance 07/18/2023 Morbid obesity with body mass index (BMI) of 40.0 to 49.9 ([facility]) 07/18/2023 Neuropathy, diabetic ([facility]) 07/18/2023 SANTO (obstructive sleep apnea) 07/18/2023 Osteoporosis ([facility]) 07/18/2023 Seasonal allergies 07/18/2023 Tobacco user 07/18/2023 Type 2 diabetes mellitus with complication, without long-term current use of insulin ([facility]) 07/18/2023 Urge and stress incontinence 07/18/2023 Vitamin D deficiency 07/18/2023 Past Surgical History: Procedure Laterality Date APPENDECTOMY CHOLECYSTECTOMY HYSTERECTOMY Complete not due to cancer TONSILLECTOMY family history includes Diabetes in her brother and mother; Heart disease in her mother; Hypertension in her mother; Stroke in her father. OBJECTIVE: Visit Vitals BP 138/76 (BP Location: Left arm, Patient Position: Sitting, BP Cuff Size: Adult long) Pulse 73 Temp 97.8 F (Temporal) Ht 5' 6 Wt 209 lb 3.2 oz SpO2 97% BMI 33.77 kg/m Smoking Status Former BSA 2.1 m Physical Exam Vitals and nursing note reviewed. Constitutional: General: She is not in acute distress. Appearance: Normal appearance. She is obese. She is not ill-appearing. HENT: Head: Normocephalic and atraumatic. Right Ear: Tympanic membrane, ear canal and external ear normal. Left Ear: Tympanic membrane, ear canal and external ear normal. Nose: Nose normal. No congestion or rhinorrhea. Comments: Pale and boggy Mouth/Throat: Mouth: Mucous membranes are moist. Pharynx: No oropharyngeal exudate or posterior oropharyngeal erythema. Eyes: Extraocular Movements: Extraocular movements intact. Conjunctiva/sclera: Conjunctivae normal. Cardiovascular: Rate and Rhythm: Normal rate and regular rhythm. Pulses: Normal pulses. Heart sounds: Normal heart sounds. No murmur heard. Pulmonary: Effort: Pulmonary effort is normal. Breath sounds: Normal breath sounds. No wheezing (exp few and faint). Abdominal: General: Bowel sounds are normal. There is no distension. Palpations: Abdomen is soft. There is no mass. Tenderness: There is no abdominal tenderness. Musculoskeletal: General: Normal range of motion. Cervical back: Normal range of motion and neck supple. Right lower leg: Edema present. Left lower leg: Edema present. Comments: Trace pedal Lymphadenopathy: Cervical: No cervical adenopathy. Skin: General: Skin is warm and dry. Capillary Refill: Capillary refill takes 2 to 3 seconds. Findings: No rash. Neurological: General: No focal deficit present. Mental Status: She is alert and oriented to person, place, and time. Psychiatric: Mood and Affect: Mood normal. Behavior: Behavior normal. Thought Content: Thought content normal. Judgment: Judgment normal. ASSESSMENT AND PLAN: Follow up in about 3 months (around 08/04/2024) for Recheck. Problem List Items Addressed This Visit COPD mixed type (CMS/HCC) - Primary Quit smoking Continue inhalers Fu with pulmonologoist Primary hypertension (CMS/HCC) Please check blood pressure daily and record DASH diet Limit caffeine Take medication as directed Contact office if chest pain, pressure, dizziness, shortness of breath, swelling legs Recommend slow position changes Current meds: b dania and arb SANTO (obstructive sleep apnea) Non compliance , has been instructed in the past on importance of need to wear PAP Not wearing risk stroke, [place], Atrial fibrillation (CMS/HCC) Cont current meds and anticoagulation Tobacco user The patient has been advised of the risks of continued smoking: stroke, AK, all forms of cancer, lung disease, and . Options for quitting smoking include: cold turkey, hypnosis, acupuncture, nicotine replacement meds (gum, lozenges, and patches), Buproprion, and Varenicline. At this time pt is encouraged to evaluate their goals for wanting to quit smoking, and reach out to provider when ready to start this process Type 2 diabetes mellitus without complication, with long-term current use of insulin ([facility]) Check blood sugars daily, notify if <70 or >200. Take medications (pills or insulin) as directed. Monitor for s/s of hypoglycemia (sweaty, dizziness, nausea, vomiting, or shakiness). Watch for increase in thirst, urination, or appetite. Inspect feet frequently monitoring for open wounds , and also recommend yearly eye exam. Is under care of Endo Is on statin , arb and asa Lung nodule, multiple Needs fu CT due now, order to [facility] CAP (community acquired pneumonia) Finished atb Breathing: improved Fever:none No productive cough Other Visit Diagnoses Needs flu shot Relevant Orders Flu vaccine, high dose seasonal, PF ([id number]) (Fluzone High Dose) (Completed) Associated Problem(s): Tobacco user The patient has been advised of the risks of continued smoking: stroke, AK, all forms of cancer, lung disease, and . Options for quitting smoking include: cold turkey, hypnosis, acupuncture, nicotine replacement meds (gum, lozenges, and patches), Buproprion, and Varenicline. At this time pt is encouraged to evaluate their goals for wanting to quit smoking, and reach out to provider when ready to start this process Associated Problem(s): Type 2 diabetes mellitus without complication, with long-term current use of insulin ([facility]) Check blood sugars daily, notify if <70 or >200. Take medications (pills or insulin) as directed. Monitor for s/s of hypoglycemia (sweaty, dizziness, nausea, vomiting, or shakiness). Watch for increase in thirst, urination, or appetite. Inspect feet frequently monitoring for open wounds , and also recommend yearly eye exam. Is under care of Endo Is on statin , arb and asa Associated Problem(s): Atrial fibrillation (CMS/HCC) Cont current meds and anticoagulation Associated Problem(s): Primary hypertension (CMS/HCC) Please check blood pressure daily and record DASH diet Limit caffeine Take medication as directed Contact office if chest pain, pressure, dizziness, shortness of breath, swelling legs Recommend slow position changes Current meds: b dania and arb Associated Problem(s): CAP (community acquired pneumonia) Finished atb Breathing: improved Fever:none No productive cough Associated Problem(s): COPD mixed type (CMS/HCC) Quit smoking Continue inhalers Fu with pulmonologoist Associated Problem(s): Lung nodule, multiple Needs fu CT due now, order to [facility] Associated Problem(s): SANTO (obstructive sleep apnea) Non compliance , has been instructed in the past on importance of need to wear PAP Not wearing risk stroke, [place], documented in this encounter [facility] 05-06-2024 Instructions Maira Rush NP - 05/06/2024 1:20 PM EST Diabetes: continue with dr allison, please call and schedule a diabetic eye exam Australian Rules Footballer: please call to schedule an appointment Mammogram: I will fax order to [facility] documented in this encounter [facility] 04-22-2024 History of Presen t illness Narrative Associated Problem(s): CAP (community acquired pneumonia) Refilled nebs D/t elevated glucose hold steroids Will trial doxycycline Fu 2 weeks recheck Associated Problem(s): Vitamin D deficiency Continue meds Associated Problem(s): Open wound of buttock Resolved per wound Associated Problem(s): GERD (gastroesophageal reflux disease) Recommendations: freq small meals, nothing to eat or drink at least 2 hours prior to bed, limit caffeine, alcohol, as well as spicy foods Meds to limit or avoid if possible: NSAIDS Elevate HOB if possible Associated Problem(s): Primary hypertension (CMS/HCC) Please check blood pressure daily and record DASH diet Limit caffeine Take medication as directed Contact office if chest pain, pressure, dizziness, shortness of breath, swelling legs Recommend slow position changes Associated Problem(s): COPD mixed type (CMS/HCC) Quit smoking Continue inhalers Fu with pulmonologoist Associated Problem(s): Type 2 diabetes mellitus with diabetic neuropathy, with long-term current use of insulin ([facility]) Recommend tight blood sugar control Pt is still have rib pain on both sides from have the pneumonia. Pt is SOB and has some wheezing this morning. Pt is having both ear pain- states that they feel plugged up Pt is needing a refill on her neb solution she is completely out Images from the original note were not included. Denae Dior is a 63 y.o. female presents with chief complaint of Diabetes and Annual Exam HPI: Diet: gets meals on wheels, does have a lot of carbs though Activity: no, does use a walker Mental Health Concerns: no depression, anxiety is better with adjustment of paxil [place] in the last year: yes Still driving: yes Do you pay your bills: yes Any hearing problems: no issues Any Vision problems: its been a while, [facility] Any Hospitalizations in the last year: yes Specialist: Tile Setter Apprentice [facility] Kalina Torres for Endo/DM, Australian Rules Footballer: Janet-has not seen in a while Recent ER pneumonia: z pack and tessalon, feeling better, but does have rib pain bilat with coughing and deep breathing. +wheezing, +dyspnea, wears oxygen at home Diabetes She presents for her follow-up diabetic visit. She has type 2 diabetes mellitus. Her disease course has been improving. Hypoglycemia symptoms include nervousness/anxiousness. Pertinent negatives for hypoglycemia include no dizziness, headaches, seizures or tremors. Associated symptoms include foot paresthesias, polydipsia, polyuria and weakness. Pertinent negatives for diabetes include no chest pain, no polyphagia and no visual change. There are no hypoglycemic complications. Symptoms are improving. Diabetic complications include heart disease and peripheral neuropathy. Risk factors for coronary artery disease include diabetes mellitus, dyslipidemia, hypertension, obesity, sedentary lifestyle and tobacco exposure. Current diabetic treatment includes oral agent (dual therapy) and insulin injections. She is compliant with treatment most of the time. Her overall blood glucose range is 140-180 mg/dl. An COSMO inhibitor/angiotensin II receptor dania is being taken. She does not see a technology sales consultant.Eye exam is not current. SUBJECTIVE: MEDICATIONS: Current Outpatient Medications Medication Instructions albuterol 2.5 mg, Nebulization, Every 6 hours PRN Alcohol Swabs (Easy Touch Alcohol Prep Medium) 70 % pads 1 each, 4 times daily aspirin (ASPIRIN LOW DOSE) 81 mg, Oral, Daily budesonide-formoterol (Symbicort) 160-4.5 MCG/ACT inhaler 2 puffs, Inhalation, 2 times daily, Rinse mouth after use Calcium+D3 500-10 MG-MCG tablet 1 tablet, 2 times daily carvedilol (Coreg) 12.5 MG tablet 1 tablet, 2 times daily with meals cholecalciferol (VITAMIN D-3) 50 mcg, Oral, Daily Continuous Glucose Service Center Supervisor (FreeStyle Julisa 2 [place]) device Continuous Glucose Service Center Supervisor (FreeStyle Julisa 2 [place]) device 1 kit, Does not apply, Every 14 days Continuous Glucose Sensor (FreeStyle Julisa 2 Sensor) misc Continuous Glucose Sensor (FreeStyle Julisa 2 Sensor) misc 1 kit, Does not apply, Every 14 days doxycycline (VIBRA-TABS) 100 mg, Oral, 2 times daily, Take with a full glass of water and do not lie down for at least 30 minutes after. empagliflozin (JARDIANCE) 25 mg, Oral, Daily gabapentin (NEURONTIN) 600 mg, Oral, 3 times daily insulin lispro (HUMALOG KWIKPEN) 10 Units, Subcutaneous, 3 times daily with meals insulin lispro (HUMALOG) 2-10 Units, 3 times daily with meals Lantus SoloStar 40 Units, Subcutaneous, Nightly, 15 units losartan (COZAAR) 100 mg, Oral, Daily pantoprazole (PROTONIX) 40 mg, Oral, Daily PARoxetine (PAXIL) 20 mg, Oral, Every morning potassium chloride ER (Micro-K) 10 MEQ ER capsule 10 mEq, Daily rosuvastatin (CRESTOR) 5 mg, Oral, Every evening spironolactone (ALDACTONE) 25 mg, Oral, Twice a day (morning and mid-day) Sure Comfort Pen [place] 32G X 4 MM misc 1 each, Subcutaneous, As needed tiotropium (Spiriva Respimat) 2.5 MCG/ACT inhaler 2 puffs, Inhalation, Daily True Metrix Blood Glucose Test test strip 1 each, As needed Xarelto 20 MG tablet 1 tablet, Daily with evening meal ALLERGIES: Allergies Allergen Reactions Ciprofloxacin GI intolerance Metronidazole GI intolerance Penicillins GI intolerance Sulfamethoxazole GI intolerance Trimethoprim GI intolerance REVIEW OF SYMPTOMS: Review of Systems Constitutional: Negative for appetite change, chills and fever. HENT: Negative for congestion, ear pain and [...] back pain, joint swelling and myalgias. Skin: Negative for rash and wound. Neurological: Positive for weakness. Negative for dizziness, tremors, seizures, syncope and headaches. Psychiatric/Behavioral: Negative for behavioral problems, self-injury and suicidal ideas. The patient is nervous/anxious. Hematological: Does not bruise/bleed easily. Endocrine: Positive for polydipsia and polyuria. Negative for polyphagia. Allergic/Immunologic: Negative for environmental allergies and food allergies. PAST MEDICAL HISTORY Past Medical History: Diagnosis Date Acute pancreatitis without necrosis or infection, unspecified Anxiety and depression ([facility]) 07/18/2023 Atrial fibrillation ([facility]) 07/18/2023 Body mass index (BMI) 40.0-44.9, adult ([facility]) COPD mixed type ([facility]) 05/23/2023 Dietary counseling and surveillance Drug-induced acute pancreatitis 07/18/2023 Edema of extremities 07/18/2023 Essential (primary) hypertension ([facility]) 12/04/2010 GERD (gastroesophageal reflux disease) 07/18/2023 HLD (hyperlipidemia) ([facility]) 07/18/2023 Hx of being 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 ([facility]) Medical non-compliance 07/18/2023 Morbid obesity with body mass index (BMI) of 40.0 to 49.9 ([facility]) 07/18/2023 Neuropathy, diabetic ([facility]) 07/18/2023 SANTO (obstructive sleep apnea) 07/18/2023 Osteoporosis ([facility]) 07/18/2023 Seasonal allergies 07/18/2023 Tobacco user 07/18/2023 Type 2 diabetes mellitus with complication, without long-term current use of insulin ([facility]) 07/18/2023 Urge and stress incontinence 07/18/2023 Vitamin D deficiency 07/18/2023 Past Surgical History: Procedure Laterality Date APPENDECTOMY CHOLECYSTECTOMY HYSTERECTOMY Complete not due to cancer TONSILLECTOMY family history includes Diabetes in her brother and mother; Heart disease in her mother; Hypertension in her mother; Stroke in her father. OBJECTIVE: Visit Vitals BP 122/78 (BP Location: Left arm, Patient Position: Sitting, BP Cuff Size: Adult long) Pulse 68 Temp 98.1 F (Temporal) Resp 20 Ht 5' 6 Wt 201 lb SpO2 95% BMI 32.44 kg/m Smoking Status Former BSA 2.06 m Physical Exam Vitals and nursing note reviewed. Constitutional: General: She is not in acute distress. Appearance: Normal appearance. She is obese. She is not ill-appearing. HENT: Head: Normocephalic and atraumatic. Right Ear: Tympanic membrane, ear canal and external ear normal. Left Ear: Tympanic membrane, ear canal and external ear normal. Nose: Congestion and rhinorrhea present. Mouth/Throat: Mouth: Mucous membranes are moist. Eyes: Extraocular Movements: Extraocular movements intact. Conjunctiva/sclera: Conjunctivae normal. Neck: Vascular: No carotid bruit. Cardiovascular: Rate and Rhythm: Normal rate and regular rhythm. Pulses: Normal pulses. Heart sounds: Normal heart sounds. Pulmonary: Effort: Pulmonary effort is normal. Breath sounds: Wheezing present. Comments: Ins and exp wheeze, moist cough Abdominal: General: Bowel sounds are normal. There is no distension. Palpations: Abdomen is soft. There is no mass. Tenderness: There is no abdominal tenderness. There is no guarding or rebound. Musculoskeletal: General: Normal range of motion. Cervical back: Normal range of motion and neck supple. Right lower leg: No edema. Left lower leg: No edema. Comments: Decreased sensation to bilat feet, left arch with scabbed area, no infected Lymphadenopathy: Cervical: No cervical adenopathy. Skin: General: Skin is warm and dry. Capillary Refill: Capillary refill takes 2 to 3 seconds. Findings: No rash. Neurological: General: No focal deficit present. Mental Status: She is alert and oriented to person, place, and time. Psychiatric: Mood and Affect: Mood normal. Behavior: Behavior normal. Thought Content: Thought content normal. Judgment: Judgment normal. ASSESSMENT AND PLAN: Follow up in about 2 weeks (around 05/06/2024) for Recheck. Problem List Items Addressed This Visit COPD mixed type ([facility]) Quit smoking Continue inhalers Fu with pulmonologoist Relevant Medications albuterol (2.5 MG/3ML) 0.083% nebulizer solution tiotropium (Spiriva Respimat) 2.5 MCG/ACT inhaler Other Relevant Orders CT chest w IV contrast Primary hypertension ([facility]) Please check blood pressure daily and record DASH diet Limit caffeine Take medication as directed Contact office if chest pain, pressure, dizziness, shortness of breath, swelling legs Recommend slow position changes Relevant Medications spironolactone (Aldactone) 25 MG tablet losartan (Cozaar) 100 MG tablet Type 2 diabetes mellitus with diabetic neuropathy, with long-term current use of insulin ([facility]) Recommend tight blood sugar control Relevant Medications aspirin (Aspirin Low Dose) 81 MG EC tablet GERD (gastroesophageal reflux disease) Recommendations: freq small meals, nothing to eat or drink at least 2 hours prior to bed, limit caffeine, alcohol, as well as spicy foods Meds to limit or avoid if possible: NSAIDS Elevate HOB if possible Relevant Medications pantoprazole (ProtoNix) 40 MG EC tablet Osteoporosis ([facility]) UTD on DEXA Recommend exercise as chronic conditions allow Edema of extremities Relevant Medications spironolactone (Aldactone) 25 MG tablet Vitamin D deficiency Continue meds Relevant Medications cholecalciferol (Vitamin D-3) 50 MCG (1999 [place]) tablet Tobacco user The patient has been advised of the risks of continued smoking: stroke, [place], all forms of cancer, lung disease, and . Options for quitting smoking include: cold turkey, hypnosis, acupuncture, nicotine replacement meds (gum, lozenges, and patches), Buproprion, and Varenicline. At this time pt is encouraged to evaluate their goals for wanting to quit smoking, and reach out to provider when ready to start this process Relevant Orders CT chest w IV contrast HLD (hyperlipidemia) (CMS/HCC) Relevant Medications rosuvastatin (Crestor) 5 MG tablet Anxiety and depression (CMS/HCC) At last appt we increased dose of paxil: Relevant Medications PARoxetine (Paxil) 20 MG tablet Obesity (BMI 30-39.9) Type 2 diabetes mellitus without complication, with long-term current use of insulin (CMS/HCC) Continue with dr allison for management of this Recommend freq foot checks, as well as yearly eye exams Take medications as directed, and diet low in sugar Open wound of buttock Resolved per wound Oxygen dependent Encounter for wellness examination - Primary Reviewed Ht/Wt/BMI Recommend eye exam yearly Recommend dental exams twice a year Balance work/leisure activities Exercises is recommended most days of the week (appropriate as chronic conditions allow) Follow up yearly and prn Lung nodule, multiple Relevant Orders CT chest w IV contrast Lymphadenopathy, generalized Repeat CT chest w contrast Relevant Orders CT chest w IV contrast CAP (community acquired pneumonia) Refilled nebs D/t elevated glucose hold steroids Will trial doxycycline Fu 2 weeks recheck Relevant Medications doxycycline (Vibra-Tabs) 100 MG tablet Other Visit Diagnoses Diabetic polyneuropathy associated with type 2 diabetes mellitus (CMS/HCC) Relevant Medications gabapentin (Neurontin) 600 MG tablet Associated Problem(s): Lymphadenopathy, generalized Repeat CT chest w contrast Associated Problem(s): Anxiety and depression (CMS/HCC) At last appt we increased dose of paxil: Associated Problem(s): Tobacco user The patient has been advised of the risks of continued smoking: stroke, AK, all forms of cancer, lung disease, and . Options for quitting smoking include: cold turkey, hypnosis, acupuncture, nicotine replacement meds (gum, lozenges, and patches), Buproprion, and Varenicline. At this time pt is encouraged to evaluate their goals for wanting to quit smoking, and reach out to provider when ready to start this process Associated Problem(s): Type 2 diabetes mellitus without complication, with long-term current use of insulin ([facility]) Continue with dr allison for management of this Recommend freq foot checks, as well as yearly eye exams Take medications as directed, and diet low in sugar Associated Problem(s): Osteoporosis ([facility]) UTD on DEXA Recommend exercise as chronic conditions allow Associated Problem(s): Encounter for wellness examination Reviewed Ht/Wt/BMI Recommend eye exam yearly Recommend dental exams twice a year Balance work/leisure activities Exercises is recommended most days of the week (appropriate as chronic conditions allow) Follow up yearly and prn documented in this encounter [facility] 04-22-2024 Instructions Maira Rush NP - 04/22/2024 9:20 AM EST New atb for pneumonia Need to schedule with pulmonology and eye doctor Eye doctor is : [phone] [facility] Lung doctor: janet office [phone] documented in this encounter [facility] 04-21-2024 History of Presen t illness Narrative - Denae Dior is a 63 y.o. female Felton Allison MD presents with chief complaint of Diabetes and Follow-up (1.5 YRS) HPI: Interim History: 04/2024 Follow-up visit of 04/21/2024 for type 2 diabetes. A1c 10.6, bg 208. She is on lantus 15 units bid, H scale #2, on jardiance 25. Interim History: 10/2022 Follow-up visit of 10/04/2022 for type 2 diabetes. A1c 9.6. She is on lantus 50 to 60, novolog 15-18-20 plus scale #2, on jardiance 25, meter 1-16-88 avg 253. Interim History: 01/2022 Follow-up visit of 01/02/2022 for type 2 diabetes. A1c 8.5. She is on lantus 50 to 60, novolog 15-18-20 plus scale #2, on jardiance 25. meter 110-438, avg 268 Interim History: Follow-up visit of 08/24/2021 for type 2 diabetes. A1c 8.5. She is on lantus 60, novolog 15-18-20 plus scale #2, on jardiance 25. Interim History: 04/2021 Follow-up visit of 04/26/2021 for type 2 diabetes. A1c 8.4. Meter 93-350, avg 1.6/day, avg 209. She is on lantus 60, novolog 15-18-20 plus scale #2, on jardiance 25. Interim History: 12/2020 Follow-up visit of 12/09/2020 for type 2 diabetes. A1c 8. Meter 226-411, avg 1.1/day, avg 286. She is on lantus 60, novolog 12-15-18 plus scale #2, on jardiance 25. Interim History: 08/2020 Follow-up visit of 08/11/2020 for type 2 diabetes. A1c 7.5. Meter 55-325, avg 3.3/day, avg 187. She is on lantus 60, novolog 12-15-18 plus scale #2, on jardiance 25. Interim History: 05/2020 Follow-up visit of 05/05/2020 for type 2 diabetes. A1c 7.5. Meter no reading may be due to wrong date . She is on lantus 60, novolog 12-15-18 plus scale #2, on jardiance 25. lab done in 02/2020 GFR>60, TC 169, LDL 105, VIT D 34, al/cr 32 Interim History: 02/2020 Follow-up visit of 02/18/2020 for type 2 diabetes. A1c UNABLE TO DO IT. Meter lowest 96, highest 396, average 1.4, and average 239. She is on Basaglar 55, Humalog 12-15-18 plus scale #2, OFF metformin,on jardiance 25 Interim History: 11/2019 Follow-up visit of 11/18/2019 for type 2 diabetes. A1c in the office 10.3. Meter lowest 115, highest 440, average 1.7, and average 271. She is on Basaglar 50, Humalog 10-12-15 plus scale #2 and metformin gave her diarrhea and she wants to stop and she is asking for Dexcom. Insurance does not cover FreeStyle due to numbness and tingling in her feet and unable to check anymore. Interim history 08/20 Followup visit on 08/12/19. A1c in the office 9.2, blood sugars 192. Meters; lowest 120, highest 373, average 237. She is on Basaglar 40 units and NovoLog 01/11/12 plus scale #2, metformin 500 mg twice a day. Interim history 05/2019. Followup visit on 05/05/2019. A1c in the office 8.2, blood sugars 272. Meters; lowest 83, highest 281, average 175, average 3.6. She is on Basaglar 40 units and NovoLog 01/11/12 plus scale #2, metformin 500 mg twice a day. On last visit, we stopped the Humalog Mix 50/50. Lab done; kidney function within normal limits, GFR above 60. Total cholesterol 111, HDL 39, triglycerides 87, LDL 87, vitamin D 32, C-peptide 2.9. HPI: 02/19 New patient sent from Maira Rush for uncontrolled diabetes. A1c in the office 9.7. Blood sugar is 201. She has diabetes since almost 2007. Due for eye exam couple of years. Meter showing lowest 50, highest 443, 2.3 and average 234. She is on Humalog mix 50/50 at 46 in the morning and 30 at dinner. Lab in July 2018, BUN 14, creatinine 0.76, GFR above 60, triglycerides 79, LDL 55, TSH 0.75 and vitamin D 17. SUBJECTIVE: MEDICATIONS: Current Outpatient Medications Medication Instructions albuterol 2.5 mg, Every 6 hours PRN Alcohol Swabs (Easy Touch Alcohol Prep Medium) 70 % pads 1 each, 4 times daily aspirin (ASPIRIN LOW DOSE) 81 mg, Oral, Daily budesonide-formoterol (Symbicort) 160-4.5 MCG/ACT inhaler 2 puffs, Inhalation, 2 times daily, Rinse mouth after use Calcium+D3 500-10 MG-MCG tablet 1 tablet, 2 times daily carvedilol (Coreg) 12.5 MG tablet 1 tablet, 2 times daily with meals cholecalciferol (VITAMIN D-3) 2,000 Units, Daily Continuous Glucose Service Center Supervisor (FreeStyle Julisa 2 [place]) device Continuous Glucose Sensor (FreeStyle Julisa 2 Sensor) misc empagliflozin (JARDIANCE) 25 mg, Oral, Daily empagliflozin (JARDIANCE) 25 mg, Oral, Daily furosemide (Lasix) 20 MG tablet 1 tablet, Daily gabapentin (NEURONTIN) 600 mg, Oral, 3 times daily insulin lispro (HUMALOG KWIKPEN) 10 Units, Subcutaneous, 3 times daily with meals Lantus SoloStar 40 Units, Subcutaneous, Nightly, 15 units losartan (COZAAR) 100 mg, Oral, Daily meclizine (ANTIVERT) 25 mg, 3 times daily PRN pantoprazole (PROTONIX) 40 mg, Oral, Daily PARoxetine (PAXIL) 20 mg, Oral, Every morning potassium chloride ER (Micro-K) 10 MEQ ER capsule 10 mEq, Daily rosuvastatin (CRESTOR) 5 mg, Oral, Every evening spironolactone (ALDACTONE) 25 mg, Oral, Twice a day (morning and mid-day) Sure Comfort Pen [place] 32G X 4 MM misc 1 each, Subcutaneous, As needed tiotropium (Spiriva Respimat) 2.5 MCG/ACT inhaler 2 puffs, Inhalation, Daily True Metrix Blood Glucose Test test strip 1 each, As needed Xarelto 20 MG tablet 1 tablet, Daily with evening meal ALLERGIES: Allergies Allergen Reactions Ciprofloxacin GI intolerance Metronidazole GI intolerance Penicillins GI intolerance Sulfamethoxazole GI intolerance Trimethoprim GI intolerance Past Medical History: Diagnosis Date Acute pancreatitis without necrosis or infection, unspecified Anxiety and depression ([facility]) 07/18/2023 Atrial fibrillation ([facility]) 07/18/2023 Body mass index (BMI) 40.0-44.9, adult ([facility]) COPD mixed type ([facility]) 05/23/2023 Dietary counseling and surveillance Drug-induced acute pancreatitis 07/18/2023 Edema of extremities 07/18/2023 Essential (primary) hypertension ([facility]) 12/04/2010 GERD (gastroesophageal reflux disease) 07/18/2023 HLD (hyperlipidemia) ([facility]) 07/18/2023 Hx of being 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 ([facility]) Medical non-compliance 07/18/2023 Morbid obesity with body mass index (BMI) of 40.0 to 49.9 ([facility]) 07/18/2023 Neuropathy, diabetic ([facility]) 07/18/2023 SANTO (obstructive sleep apnea) 07/18/2023 Osteoporosis ([facility]) 07/18/2023 Seasonal allergies 07/18/2023 Tobacco user 07/18/2023 Type 2 diabetes mellitus with complication, without long-term current use of insulin ([facility]) 07/18/2023 Urge and stress incontinence 07/18/2023 Vitamin D deficiency 07/18/2023 Past Surgical History: Procedure Laterality Date APPENDECTOMY CHOLECYSTECTOMY HYSTERECTOMY Complete not due to cancer TONSILLECTOMY REVIEW OF SYMPTOMS: 14 POINT OF SYSTEM REVIEWED AND NEGATIVE OBJECTIVE: Constitutional: Afebrile @ home; no weakness or night sweats SKIN: No change in skin color; no itching, rash or lesions; no hair loss; HEENT: No HAs or injury; no dizziness; No difficulty with vision; no eye pain, discharge or lesions; no hearing loss or difficulty; no nasal discharge, NECK: No pain, limitation of motion, lumps or swollen glands RESP: No cough, wheezing or difficulty breathing. No CP with breathing; CARDIO: No CP , SOB or fatigue, No edema, palpitations or dyspnea with exertion GI: No N/V/D or abd. pain; good appetite with no recent change. No heart burn, liver or gallbladder disease; no rectal bleeding or pain : No urinary pain , frequency or odor. MUSCULOSKELETAL: No muscle pain or cramps; no extremity weakness.No joint pain, stiffness, swelling or limitation of movement NEUROLOGY: No H/O seizures, stroke or fainting. No weakness, tremors. Hematology: No bleeding problems or excessive bruising ENDOCRINE: No increase in hunger, thirst or urination; admits compliance to medical management plan Feet: numbness tingling yes , ulcers or skin break no Lab Results Component Value Date HGBA1C 10.6 04/21/2024 HGBA1C 10.4 (H) 04/09/2024 HGBA1C 11.9 (H) 08/05/2023 Lab Results Component Value Date GLU 208 04/21/2024 GLU 269 (H) 04/09/2024 GLU 153 (H) 01/22/2024 Visit Vitals BP 112/72 Pulse 77 Resp 18 Ht 5' 6 Wt 205 lb BMI 33.09 kg/m Smoking Status Former BSA 2.08 m ASSESSMENT AND PLAN: Assessment/Plan Diagnoses and all orders for this visit: Type 2 diabetes mellitus with hyperglycemia, with long-term current use of insulin ([facility]) - POCT glucose manually resulted - POCT glycosylated hemoglobin (Hb A1C) docked device - C-peptide; Future - Vitamin D 25 hydroxy Total; Future - Microalbumin / creatinine urine ratio; Future - Lipid panel; Future - Renal function panel; Future - insulin glargine (Lantus SoloStar) 100 UNIT/ML pen; Inject 40 Units under the skin at bedtime 15 units - empagliflozin (Jardiance) 25 MG; Take 1 tablet (25 mg) by mouth Daily - insulin lispro (HumaLOG KWIKPEN) 100 UNIT/ML injection; Inject 10 Units under the skin in the morning and 10 Units at noon and 10 Units in the evening. Inject with meals. We will we will change Lantus to 40 units at bedtime, change Humalog to 11/08/09 according to meal size less scale 2. Instruction given, continue with Jardiance 25 mg once a day, we will start her on a Adstrix Julisa at 2 we will do PA if needed. Encounter for dietary consultation Diet and exercise reviewed with the patient Vitamin D deficiency Primary hypertension (CMS/HCC) To follow with her PCP Hyperlipemia, mixed (CMS/HCC) Continue with statin Crestor 5 mg once a day Insulin long-term use (CMS/[facility]) Class 1 obesity due to excess calories without serious comorbidity with body mass index (BMI) of 33.0 to 33.9 in adult Follow up in about 3 months (around 07/22/2024). documented in this encounter [facility] 04-09-2024 Telephone encounter Note I would like Denae Dior to be enrolled in Chronic Care Mgmt if her insurance allows She is now living on her own, is in the Senior Living. She has not been to see Dr Allison for some time, he is the one to manage her DM, recent A1c is 10.4% [place] [facility] 04-09-2024 Miscellaneous Notes I would like Denae Dior to be enrolled in Chronic Care Mgmt if her insurance allows She is now living on her own, is in the Senior Living. She has not been to see Dr Allison for some time, he is the one to manage her DM, recent A1c is 10.4% LA documented in this encounter [facility] 03-20-2024 History of Presen t illness Narrative Images from the original note were not included. Wound Care Progress Note Patient: Denae Dior Date of : 1960 Chief Complaint:buttock wound, new patient Subjective/HPI: Denae is a 63 y.o. female who present to [facility] for evaluation of 1 ulcer(s) on the sacral area. Patient was first assessed in wound clinic on 03/20/24. Current daily wound care includes OTC zinc cream up to 4 times daily. Reports blood glucose 299 last night which is typical for her. States she has lost weight due to stress putting her in alf. She does not know how wound occurred [...] List Diagnosis Hyperglycemia Weakness Hypokalemia Atrial fibrillation ([facility]) Chronic obstructive pulmonary disease ([facility]) JORDAN (generalized anxiety disorder) GERD (gastroesophageal reflux disease) HLD (hyperlipidemia) Medical non-compliance Neuropathy, diabetic [place] Primary hypertension SANTO (obstructive sleep apnea) Tobacco dependence syndrome Type 2 diabetes mellitus with complication, without long-term current use of insulin ([facility] Muscle weakness (generalized) Other abnormalities of gait [...] speech difficulty, weakness and light-headedness. Objective: Vitals: 03/20/24 0907 BP: 100/48 Pulse: 76 Resp: 16 Temp: [...] Mid (Active) Wound Image 03/20/24920 Site Assessment Trent;Red 03/20/24920 Stefanie-wound Assessment White;Trent;Intact 03/20/24920 Wound Length (cm) 0.8 cm 03/20/24920 [...] Stage III pressure ulcer of sacral region ([facility]) 2. Open wound Dicussed that pressure is [...] ulcer, with long-term current use of insulin ([facility]) (Primary) Patient states she is going to call her slubber runner for follow up. Encouraged due to consistent [...] short term goal is wound compliance. 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 Follow up wound [...] in the electronic or other health record Frida CHAMBERS, MARY [facility] Office: [phone] Email: [email or web address] Thank you very much for allowing us to participate in your patients care. Your referrals are greatly appreciated, please do not hesitate to contact our service with any questions or concerns regarding the care management. TRISH Zamudio 03/20/24 1021 documented in this encounter [facility] 03-20-2024 Instructions Hillary Daniels RN - 03/20/2024 [...] up your follow up appointment with your slubber runner (diabetes ) Length Width Depth Wound 03/20/24 1 Pressure Injury Coccyx Mid-Wound Length (cm): 0.8 cm Wound 03/20/24 1 Pressure Injury Coccyx Mid-Wound Width (cm): 0.2 cm Wound 03/20/24 1 Pressure Injury Coccyx Mid-Wound Depth (cm): 0.1 cm Wound drainage Type Description none documented in this encounter [facility] 03-18-2024 Telephone encounter Note Contact provider this morning, she is now starting to cough up yellow mucus and worsening in symtpoms, no fever, no NVD Will send in atb Also needs humidification for her oxygen She is instructed if atb does not help will need fu apppt [place] [facility] 03-18-2024 Miscellaneous Notes Contact provider this morning, she is now starting to cough up yellow mucus and worsening in symtpoms, no fever, no NVD Will send in atb Also needs humidification for her oxygen She is instructed if atb does not help will need fu apppt [place] documented in this encounter [facility] 03-11-2024 History of Presen t illness Narrative Associated Problem(s): Type 2 diabetes mellitus without complication, with long-term current use of insulin ([facility]) Phone number given for pt to contact Dr Allison office Associated Problem(s): Open wound Refer to [...] D-3) 2,000 Units, Oral, Daily Continuous Glucose Service Center Supervisor (FreeStyle Julisa 2 [place]) device Continuous Glucose Sensor (FreeStyle Julisa 2 [...] day (morning and mid-day) Sure Comfort Pen [place] 32G X 4 MM misc 1 each, [...] Medical History: Diagnosis Date Anxiety and depression ([facility]) 07/18/2023 Atrial fibrillation ([facility]) 07/18/2023 COPD mixed type ([facility]) 05/23/2023 Drug-induced acute pancreatitis 07/18/2023 Edema of extremities 07/18/2023 GERD (gastroesophageal reflux disease) 07/18/2023 HLD (hyperlipidemia) ([facility]) 07/18/2023 Medical non-compliance 07/18/2023 Morbid obesity with body mass index (BMI) of 40.0 to 49.9 ([facility]) 07/18/2023 Neuropathy, diabetic ([facility]) 07/18/2023 SANTO (obstructive sleep apnea) 07/18/2023 Osteoporosis ([facility]) 07/18/2023 Seasonal allergies 07/18/2023 Tobacco user 07/18/2023 Type 2 diabetes mellitus with complication, without long-term current use of insulin ([facility]) 07/18/2023 Urge and stress incontinence 07/18/2023 Vitamin [...] complication, with long-term current use of insulin ([facility]) Phone number given for pt to contact Dr Allison office Relevant Orders Ambulatory referral to Wound Clinic Viral upper respiratory tract infection - Primary Do not see any s/s bacterial infection, lungs clear Did in office Flu A/B/Covid: negative Fluids, rest, monitor for s/s worsening if so call office documented in this encounter [facility] 02-25-2024 History of Presen t illness Narrative Associated Problem(s): Dizziness and giddiness Orthostatic BP: Lying 142/82 Sittin/80 Standin/76 Review of meds aldactone prior to hospital admission was 25mg BID, in the hospital it was 50mg BID, I think this was an error, she believes she was only taking this once a day since being home but her med card does indicate 50mg BID, so she is going to do 25mg BID Her new med supply from [facility] is 25mg BID This may be related to her dizziness Will obtain notes from [facility], I did call medical records and left voice mail to send all ER notes for recent visit Associated Problem(s): Type 2 diabetes mellitus without complication, with long-term current use of insulin ([facility]) Continue current dosing of insulin at BID And sliding scale insulin Has not followed up with endo as of yet, Kalina manages her diabetes, her sugars are not well controlled, she needs to get in with him Associated Problem(s): Open wound of buttock Recommend cleansing area with soap and water 3-4 times daily and apply zinc oxide cream Increase protein intake Fu in 2 weeks for recheck No atb needed at this time Pt is using zinc oxide for coccyx Pt was in the er yesterday for dizziness-maclizine Images from the original note were not included. Denae Dior is a 63 y.o. female presents with chief complaint of No chief complaint on file. HPI: Open wound buttocks: noted a few days ago. No fever, chills, no drainage, +pain (irritation) Blood sugars are running in the mid 200's she is taking her insulin, she has not contacted dr allison's office to schedule a fu appt with them Was in the [facility] er yesterday for dizziness: room spinning, no specific activity to provoke it, +runny nose, no NORMAN, blurry or double vision noted. No other stroke type symptoms SUBJECTIVE: MEDICATIONS: Current Outpatient Medications Medication Instructions [...] D-3) 2,000 Units, Oral, Daily Continuous Glucose Service Center Supervisor (FreeStyle Julisa 2 [place]) device Continuous Glucose Sensor (FreeStyle Julisa 2 [...] day (morning and mid-day) Sure Comfort Pen [place] 32G X 4 MM misc 1 each, [...] for appetite change, chills and fever. HENT: Negative for congestion, ear pain and [...] Positive for wound. Negative for rash. Neurological: Positive for dizziness. Negative for tremors, seizures, syncope and headaches. Psychiatric/Behavioral: Negative for behavioral problems, self-injury and suicidal ideas. The patient is not nervous/anxious. Hematological: Does not bruise/bleed easily. Endocrine: Negative for polydipsia, polyphagia and polyuria. Allergic/Immunologic: Negative for environmental allergies and food allergies. PAST MEDICAL HISTORY Past Medical History: Diagnosis Date Anxiety and depression ([facility]) 07/18/2023 Atrial fibrillation ([facility]) 07/18/2023 COPD mixed type ([facility]) 05/23/2023 Drug-induced acute pancreatitis 07/18/2023 Edema of extremities 07/18/2023 GERD (gastroesophageal reflux disease) 07/18/2023 HLD (hyperlipidemia) ([facility]) 07/18/2023 Medical non-compliance 07/18/2023 Morbid obesity with body mass index (BMI) of 40.0 to 49.9 ([facility]) 07/18/2023 Neuropathy, diabetic ([facility]) 07/18/2023 SANTO (obstructive sleep apnea) 07/18/2023 Osteoporosis ([facility]) 07/18/2023 Seasonal allergies 07/18/2023 Tobacco user 07/18/2023 Type 2 diabetes mellitus with complication, without long-term current use of insulin ([facility]) 07/18/2023 Urge and stress incontinence 07/18/2023 Vitamin D deficiency 07/18/2023 Past Surgical History: Procedure Laterality Date APPENDECTOMY CHOLECYSTECTOMY HYSTERECTOMY Complete not due to cancer TONSILLECTOMY family history includes Diabetes in her mother; Heart disease in her mother; Hypertension in her mother; Stroke in her father. OBJECTIVE: Visit Vitals BP 122/76 (BP Location: Left arm, Patient Position: Sitting, BP Cuff Size: Adult long) Pulse 77 Temp 98.1 F (Temporal) Resp 19 Ht 5' 6 Wt 207 lb 9.6 oz SpO2 97% BMI 33.51 kg/m Smoking Status Former BSA 2.09 m Physical Exam Vitals and nursing note reviewed. Constitutional: General: She is not in acute distress. Appearance: Normal appearance. HENT: Head: Normocephalic and atraumatic. Right Ear: Tympanic membrane, ear canal and external ear normal. There is no impacted cerumen. Left Ear: Tympanic membrane, ear canal and external ear normal. There is no impacted cerumen. Nose: Nose normal. No congestion or rhinorrhea. Mouth/Throat: Mouth: Mucous membranes are moist. Pharynx: No oropharyngeal exudate or posterior oropharyngeal erythema. Eyes: Extraocular Movements: Extraocular movements intact. Conjunctiva/sclera: Conjunctivae normal. Pupils: Pupils are equal, round, and reactive to light. Neck: Vascular: No carotid bruit. Cardiovascular: Rate and Rhythm: Normal rate and regular rhythm. Pulses: Normal pulses. Heart sounds: Normal heart sounds. Pulmonary: Effort: Pulmonary effort is normal. Breath sounds: Wheezing (few faint) present. Abdominal: General: Bowel sounds are normal. [...] to 3 seconds. Findings: No rash. Comments: Open skin lesion to [place] cleft, no surrounding s/s of infection, approx 2mm deep and approx 4-5 mm length, this does appear more superficial then deep. Area cleansed with soap/water and dried with clean 4x4. Pt liz some zinc oxide cream, I did apply this to the affected area Neurological: General: No focal deficit present. Mental Status: She is alert and oriented to person, place, and time. Cranial Nerves: No cranial nerve deficit. Gait: Gait normal. Comments: Neg romberg, neg ulnar drift Psychiatric: Mood and Affect: Mood normal. Behavior: Behavior normal. Thought Content: Thought content normal. Judgment: Judgment normal. ASSESSMENT AND PLAN: No follow-ups on file. Problem List Items Addressed This Visit Obesity (BMI 30-39.9) Type 2 diabetes mellitus without complication, with long-term current use of insulin ([facility]) Continue current dosing of insulin at BID And sliding scale insulin Has not followed up with endo as of yet, Kalina manages her diabetes, her sugars are not well controlled, she needs to get in with him Dizziness and giddiness Orthostatic BP: Lying 142/82 Sittin/80 Standin/76 Review of meds aldactone prior to hospital admission was 25mg BID, in the hospital it was 50mg BID, I think this was an error, she believes she was only taking this once a day since being home but her med card does indicate 50mg BID, so she is going to do 25mg BID Her new med supply from [facility] is 25mg BID This may be related to her dizziness Will obtain notes from [facility], I did call medical records and left voice mail to send all ER notes for recent visit Open wound of buttock - Primary Recommend cleansing area with soap and water 3-4 times daily and apply zinc oxide cream Increase protein intake Fu in 2 weeks for recheck No atb needed at this time documented in this encounter [facility] 02-17-2024 History of Presen t illness Narrative Associated Problem(s): Dizziness and giddiness Could be still with getting stronger, also will check labs to r/o anemia or elyte abnormals Fu in 3 weeks Continue with home OT/PT Associated Problem(s): Type 2 diabetes mellitus without complication, with long-term current use of insulin (CMS/HCC) Continue current dosing of insulin at BID And sliding scale insulin Associated Problem(s): Edema of extremities Stable at this time Associated Problem(s): Primary hypertension (CMS/HCC) Stable at this time Associated Problem(s): Atrial fibrillation (CMS/HCC) Cont current meds and anticoagulation BS 200 or less Images from the original note were not included. Denae Dior is a 63 y.o. female presents with chief complaint of No chief complaint on file. HPI: Recent discharge from hospital and alf for weakness and inability to care for self Is getting home health, using a walker does get intermittent dizziness as well See ER visits for notes on HPI Hypertension This is a chronic problem. The current episode started more than 1 year ago. The problem is unchanged. The problem is controlled. Pertinent negatives include no blurred vision, chest pain, headaches, palpitations, peripheral edema or shortness of breath. Risk factors for coronary artery disease include dyslipidemia, obesity, sedentary lifestyle and smoking/tobacco exposure. Past treatments include angiotensin blockers, diuretics and beta blockers. The current treatment provides significant improvement. There are no compliance problems. Hypertensive end-organ damage includes CAD/AK and heart failure. Diabetes She presents for her follow-up diabetic visit. She has type 2 diabetes mellitus. Her disease course has been stable. Hypoglycemia symptoms include dizziness. Pertinent negatives for hypoglycemia include no headaches, nervousness/anxiousness, seizures, speech difficulty or tremors. Associated symptoms include fatigue, polyuria and weakness. Pertinent negatives for diabetes include no blurred vision, no chest pain, no foot paresthesias, no foot ulcerations, no polydipsia, no polyphagia and no visual change. There are no hypoglycemic complications. Symptoms are stable. Diabetic complications include heart disease and peripheral neuropathy. Risk factors for coronary artery disease include diabetes mellitus, dyslipidemia, obesity, hypertension, post-menopausal, sedentary lifestyle, stress and tobacco exposure. Current diabetic treatment includes insulin injections. She is compliant with treatment most of the time. An COSMO inhibitor/angiotensin II receptor dania is being taken. [...] D-3) 2,000 Units, Oral, Daily Continuous Glucose [employer] [facility] Supervisor (FreeStyle Julisa 2 [place]) device Continuous Glucose Sensor (FreeStyle Julisa 2 [...] units losartan (COZAAR) 100 mg, Oral, Daily NovoLOG FLEXPEN 100 UNIT/ML pen Sliding 0-6 units (6units for BS being 300) pantoprazole (PROTONIX) 40 mg, Oral, Daily PARoxetine (PAXIL) 20 mg, Oral, Every morning potassium chloride ER (Micro-K) 10 MEQ ER capsule 10 mEq, Oral, Daily rosuvastatin (CRESTOR) 5 mg, Oral, Every evening spironolactone (ALDACTONE) 50 mg, Oral, 2 times daily Sure Comfort Pen [place] 32G X 4 MM misc 1 each, [...] REVIEW OF SYMPTOMS: Review of Systems Constitutional: Positive for fatigue. Negative for appetite change, chills and fever. HENT: Negative for congestion, ear pain and sore throat. Eyes: Negative for blurred vision, pain, discharge, redness and visual disturbance. Respiratory: Negative for cough, shortness of breath and wheezing. Cardiovascular: Negative for chest pain, palpitations and leg swelling. Gastrointestinal: Negative for abdominal pain, blood in stool, constipation, diarrhea, nausea and vomiting. Genitourinary: Negative for difficulty urinating, dysuria and frequency. Musculoskeletal: Negative for arthralgias, back pain, joint swelling and myalgias. Skin: Negative for rash and wound. Neurological: Positive for dizziness and weakness. Negative for tremors, seizures, syncope, speech difficulty and headaches. Psychiatric/Behavioral: Negative for behavioral problems, self-injury and suicidal ideas. The patient is not nervous/anxious. Hematological: Does not bruise/bleed easily. Endocrine: Positive for polyuria. Negative for polydipsia and polyphagia. Allergic/Immunologic: Negative for environmental allergies and food allergies. PAST MEDICAL HISTORY Past Medical History: Diagnosis Date Anxiety and depression ([facility]) 07/18/2023 Atrial fibrillation ([facility]) 07/18/2023 COPD mixed type ([facility]) 05/23/2023 Drug-induced acute pancreatitis 07/18/2023 Edema of extremities 07/18/2023 GERD (gastroesophageal reflux disease) 07/18/2023 HLD (hyperlipidemia) ([facility]) 07/18/2023 Medical non-compliance 07/18/2023 Morbid obesity with body mass index (BMI) of 40.0 to 49.9 ([facility]) 07/18/2023 Neuropathy, diabetic ([facility]) 07/18/2023 SANTO (obstructive sleep apnea) 07/18/2023 Osteoporosis ([facility]) 07/18/2023 Seasonal allergies 07/18/2023 Tobacco user 07/18/2023 Type 2 diabetes mellitus with complication, without long-term current use of insulin ([facility]) 07/18/2023 Urge and stress incontinence 07/18/2023 Vitamin D deficiency 07/18/2023 Past Surgical History: Procedure Laterality Date APPENDECTOMY CHOLECYSTECTOMY HYSTERECTOMY Complete not due to cancer TONSILLECTOMY family history includes Diabetes in her mother; Heart disease in her mother; Hypertension in her mother; Stroke in her father. OBJECTIVE: Visit Vitals BP 118/82 (BP Location: Left arm, Patient Position: Sitting, BP Cuff Size: Adult long) Pulse 78 Temp 98.5 F (Temporal) Resp 19 Ht 5' 6 Wt 211 lb 12.8 oz SpO2 98% BMI 34.19 kg/m Smoking Status Former BSA 2.12 m Physical Exam Vitals and nursing note reviewed. Constitutional: General: She is not in acute distress. Appearance: Normal appearance. HENT: Head: Normocephalic and atraumatic. Right Ear: Tympanic membrane, ear canal and external ear normal. Left Ear: Tympanic membrane, ear canal and external ear normal. Nose: Nose normal. No congestion or rhinorrhea. Comments: palor Mouth/Throat: Mouth: Mucous membranes are moist. Pharynx: No oropharyngeal exudate or posterior oropharyngeal erythema. Comments: Tongue is tachy Eyes: Extraocular Movements: Extraocular movements intact. Conjunctiva/sclera: Conjunctivae normal. Neck: Vascular: No carotid bruit. Cardiovascular: Rate and Rhythm: Normal rate and regular rhythm. Pulses: Normal pulses. Heart sounds: Normal heart sounds. Pulmonary: Effort: Pulmonary effort is normal. Breath sounds: Normal breath sounds. No wheezing or rales. Abdominal: General: Bowel sounds are normal. There [...] to 3 seconds. Findings: No rash. Comments: Healing open wound to crown of head as well Neurological: General: No focal deficit present. Mental Status: She is alert and oriented to person, place, and time. Motor: Weakness (generalized) present. Psychiatric: Mood and Affect: Mood normal. Behavior: Behavior normal. Thought Content: Thought content normal. Judgment: Judgment normal. ASSESSMENT AND PLAN: No follow-ups on file. Problem List Items Addressed This Visit COPD mixed type (CMS/HCC) Relevant Medications budesonide-formoterol (Symbicort) 160-4.5 MCG/ACT inhaler tiotropium (Spiriva Respimat) 2.5 MCG/ACT inhaler Primary hypertension (CMS/HCC) Stable at this time Relevant Orders Comprehensive metabolic panel Urinalysis with reflex microscopic (clean catch) Atrial fibrillation (CMS/HCC) Cont current meds and anticoagulation Edema of extremities Stable at this time Relevant Orders Comprehensive metabolic panel Vitamin D deficiency Relevant Orders Comprehensive metabolic panel Tobacco user Relevant Orders Urinalysis with reflex microscopic (clean catch) Type 2 diabetes mellitus without complication, with long-term current use of insulin (CMS/HCC) Continue current dosing of insulin at BID And sliding scale insulin Relevant Orders Comprehensive metabolic panel Type 2 diabetes mellitus with hyperglycemia ([facility]CC) - Primary Relevant Orders Comprehensive metabolic panel Hemoglobin A1c Urinalysis with reflex microscopic (clean catch) Dizziness and giddiness Could be still with getting stronger, also will check labs to r/o anemia or elyte abnormals Fu in 3 weeks Continue with home OT/PT Relevant Orders Magnesium Comprehensive metabolic panel CBC and differential Urinalysis with reflex microscopic (clean catch) documented in this encounter [facility] 01-16-2024 Note XR CHEST 1 VW Procedure: Chest x-ray performed Number of views:1 History:Cough Comparison:07/13/2022 Impression: 1. There is patchy airspace disease and effusion in the left lung base. The right lung is clear. There is no pneumothorax. The mediastinal structures are unremarkable. Finalized by Chalo Lang MD on 01/16/2024 8:28 PM [facility] 07-18-2023 History of Presen t illness [...] to wear PAP Not wearing risk stroke, AK, Associated Problem(s): Type 2 diabetes mellitus with diabetic neuropathy, with long-term current use of insulin (CMS/HCC) Non compliant with follow up with Endo Explained to her her persistent non compliance will lead to increase risk stroke, AK, blindness, amputation, as well as CKD Instructed her to contact Dr Allison's office Check blood sugars daily, notify if [...] blood glucose range is >200 mg/dl. An COSMO inhibitor/angiotensin II receptor dania is being taken. [...] 2 puffs, Inhalation, Daily Sure Comfort Pen [place] 32G X 4 MM misc 1 each, [...] Medical History: Diagnosis Date Anxiety and depression ([facility]) 07/18/2023 Atrial fibrillation ([facility]) 07/18/2023 COPD mixed type ([facility]) 05/23/2023 Drug-induced acute pancreatitis 07/18/2023 Edema of extremities 07/18/2023 GERD (gastroesophageal reflux disease) 07/18/2023 HLD (hyperlipidemia) ([facility]) 07/18/2023 Medical non-compliance 07/18/2023 Morbid obesity with body mass index (BMI) of 40.0 to 49.9 ([facility]) 07/18/2023 Neuropathy, diabetic ([facility]) 07/18/2023 SANTO (obstructive sleep apnea) 07/18/2023 Osteoporosis ([facility]) 07/18/2023 Seasonal allergies 07/18/2023 Tobacco user 07/18/2023 Type 2 diabetes mellitus with complication, without long-term current use of insulin ([facility]) 07/18/2023 Urge and stress incontinence 07/18/2023 Vitamin [...] Items Addressed This Visit COPD mixed type ([facility]) Continues to smoke, refused to quit Cont current meds at this time Primary hypertension ([facility]) stable Relevant Orders Comprehensive metabolic panel Type 2 diabetes mellitus with diabetic neuropathy, with long-term current use of insulin ([facility]) - Primary Non compliant with follow up with Endo Explained to her her persistent non compliance will lead to increase risk stroke, AK, blindness, amputation, as well as CKD Instructed her to contact Dr Allison's office Check blood sugars daily, notify if [...] to wear PAP Not wearing risk stroke, AK, GERD (gastroesophageal reflux disease) Relevant Orders CBC and differential Vitamin D deficiency Relevant Orders Vitamin D 25 hydroxy Type 2 diabetes mellitus with complication, without long-term current use of insulin ([facility]) Relevant Orders Comprehensive metabolic panel Microalbumin / creatinine, urine ratio Urinalysis with reflex microscopic (clean catch) Hemoglobin A1c HLD (hyperlipidemia) ([facility]) Relevant Orders Lipid panel Comprehensive metabolic panel Anxiety and depression ([facility]) Stable at this time Encounter for screening mammogram for malignant neoplasm of breast Relevant Orders Bilateral screening mammogram COVID Recent hospitalization for this, appears to be doing quite well Open wound No s/s infection, recommend using diaper barrier ointment on this documented in this encounter [facility] 01-08-2023 Note Patient here for 6 m [...] All other systems reviewed and are negative. [facility] 01-08-2023 Note Cardiology Clinic No te [...] Lexiscan stress test (more content not included)... [facility] 06-07-2022 Note PROCEDURE: XR FOOT L [...] by: ROBERT HART Date: 2022-06-07 08:43 [facility] Evaluation note Diagnosis Primary hypertension (CMS/HCC)- Primary Unspecified essential hypertension Type 2 diabetes mellitus with diabetic neuropathy, with long-term current use of insulin ([facility]) Gastroesophageal reflux disease, unspecified whether esophagitis present Vitamin D deficiency Type 2 diabetes mellitus with complication, without long-term current use of insulin ([facility]) Mixed hyperlipidemia ([facility]) Mixed hyperlipidemia Encounter for screening mammogram for malignant neoplasm of breast SANTO (obstructive sleep apnea) Obstructive sleep apnea (adult) (pediatric) COPD mixed type ([facility]) Anxiety and depression ([facility]) COVID Open wound Open wound(s) (multiple) of unspecified site(s), without mention of complication Morbid obesity with body mass index (BMI) of 40.0 to 49.9 ([facility]) documented in this encounter [facility]* Diagnosis Viral upper respiratory tract infection- Primary Acute upper respiratory infections of unspecified site Tobacco user Tobacco use disorder Open wound Open wound(s) (multiple) of unspecified site(s), without mention of complication Obesity (BMI 30-39.9) Type 2 diabetes mellitus without complication, with long-term current use of insulin ([facility]) documented in this encounter [facility] HealthcareEvaluation note* Diagnosis Primary hypertension ([facility])- Primary Unspecified essential hypertension Type 2 diabetes mellitus with diabetic neuropathy, with long-term current use of insulin ([facility]) Gastroesophageal reflux disease, unspecified whether esophagitis present Vitamin D deficiency Type 2 diabetes mellitus with complication, without long-term current use of insulin ([facility]) Mixed hyperlipidemia ([facility]) Mixed hyperlipidemia Encounter for screening mammogram for malignant neoplasm of breast SANTO (obstructive sleep apnea) Obstructive sleep apnea (adult) (pediatric) COPD mixed type ([facility]) Anxiety and depression ([facility]) COVID Open wound Open wound(s) (multiple) of unspecified site(s), without mention of complication Morbid obesity with body mass index (BMI) of 40.0 to 49.9 ([facility]) COPD mixed type ([facility])- Primary Dysuria Atrial fibrillation, unspecified type ([facility]) Gastroesophageal reflux disease, unspecified whether esophagitis present Type 2 diabetes mellitus with complication, without long-term current use of insulin ([facility]) Obesity (BMI 30-39.9) Tobacco user Tobacco use disorder Anxiety and depression ([facility]) Dermatitis Contact dermatitis and other eczema, due to unspecified cause Anxiety and depression ([facility])- Primary Obesity (BMI 30-39.9) Type 2 diabetes mellitus with complication, without long-term current use of insulin ([facility]) Medical non-compliance Tobacco user Tobacco use disorder Type 2 diabetes mellitus with hyperglycemia ([facility])- Primary Primary hypertension ([facility]) Unspecified essential hypertension Edema of extremities Edema Type 2 diabetes mellitus without complication, with long-term current use of insulin ([facility]) Vitamin D deficiency Tobacco user Tobacco use disorder Dizziness and giddiness Atrial fibrillation, unspecified type ([facility]) COPD mixed type ([facility]) Open wound of buttock, unspecified laterality, initial encounter- Primary Type 2 diabetes mellitus without complication, with long-term current use of insulin ([facility]) Obesity (BMI 30-39.9) Dizziness and giddiness Viral upper respiratory tract infection- Primary Acute upper respiratory infections of unspecified site Tobacco user Tobacco use disorder Open wound Open wound(s) (multiple) of unspecified site(s), without mention of complication Obesity (BMI 30-39.9) Type 2 diabetes mellitus without complication, with long-term current use of insulin ([facility]) Primary hypertension ([facility])- Primary Unspecified essential hypertension Edema of extremities Edema documented in this encounter [facility]* Diagnosis Primary hypertension ([facility])- Primary Unspecified essential hypertension Type 2 diabetes mellitus with diabetic neuropathy, with long-term current use of insulin ([facility]) Gastroesophageal reflux disease, unspecified whether esophagitis present Vitamin D deficiency Type 2 diabetes mellitus with complication, without long-term current use of insulin ([facility]) Mixed hyperlipidemia ([facility]) Mixed hyperlipidemia Encounter for screening mammogram for malignant neoplasm of breast SANTO (obstructive sleep apnea) Obstructive sleep apnea (adult) (pediatric) COPD mixed type ([facility]) Anxiety and depression ([facility]) COVID Open wound Open wound(s) (multiple) of unspecified site(s), without mention of complication Morbid obesity with body mass index (BMI) of 40.0 to 49.9 ([facility]) COPD mixed type ([facility])- Primary Dysuria Atrial fibrillation, unspecified type ([facility]) Gastroesophageal reflux disease, unspecified whether esophagitis present Type 2 diabetes mellitus with complication, without long-term current use of insulin ([facility]) Obesity (BMI 30-39.9) Tobacco user Tobacco use disorder Anxiety and depression ([facility]) Dermatitis Contact dermatitis and other eczema, due to unspecified cause Anxiety and depression ([facility])- Primary Obesity (BMI 30-39.9) Type 2 diabetes mellitus with complication, without long-term current use of insulin ([facility]) Medical non-compliance Tobacco user Tobacco use disorder Type 2 diabetes mellitus with hyperglycemia ([facility])- Primary Primary hypertension ([facility]) Unspecified essential hypertension Edema of extremities Edema Type 2 diabetes mellitus without complication, with long-term current use of insulin ([facility]) Vitamin D deficiency Tobacco user Tobacco use disorder Dizziness and giddiness Atrial fibrillation, unspecified type ([facility]) COPD mixed type ([facility]) Open wound of buttock, unspecified laterality, initial encounter- Primary Type 2 diabetes mellitus without complication, with long-term current use of insulin ([facility]) Obesity (BMI 30-39.9) Dizziness and giddiness Viral upper respiratory tract infection- Primary Acute upper respiratory infections of unspecified site Tobacco user Tobacco use disorder Open wound Open wound(s) (multiple) of unspecified site(s), without mention of complication Obesity (BMI 30-39.9) Type 2 diabetes mellitus without complication, with long-term current use of insulin ([facility]) COPD mixed type ([facility])- Primary URI, acute Acute upper respiratory infections of unspecified site documented in this encounter [facility]* Diagnosis Primary hypertension ([facility])- Primary Unspecified essential hypertension Type 2 diabetes mellitus with diabetic neuropathy, with long-term current use of insulin ([facility]) Gastroesophageal reflux disease, unspecified whether esophagitis present Vitamin D deficiency Type 2 diabetes mellitus with complication, without long-term current use of insulin ([facility] [facility]) Mixed hyperlipidemia ([facility]) Mixed hyperlipidemia Encounter for screening mammogram for malignant neoplasm of breast SANTO (obstructive sleep apnea) Obstructive sleep apnea (adult) (pediatric) COPD mixed type ([facility]) Anxiety and depression ([facility]) COVID Open wound Open wound(s) (multiple) of unspecified site(s), without mention of complication Morbid obesity with body mass index (BMI) of 40.0 to 49.9 ([facility]) COPD mixed type ([facility])- Primary Dysuria Atrial fibrillation, unspecified type ([facility]) Gastroesophageal reflux disease, unspecified whether esophagitis present Type 2 diabetes mellitus with complication, without long-term current use of insulin ([facility]) Obesity (BMI 30-39.9) Tobacco user Tobacco use disorder Anxiety and depression ([facility]) Dermatitis Contact dermatitis and other eczema, due to unspecified cause Anxiety and depression ([facility])- Primary Obesity (BMI 30-39.9) Type 2 diabetes mellitus with complication, without long-term current use of insulin ([facility]) Medical non-compliance Tobacco user Tobacco use disorder Type 2 diabetes mellitus with hyperglycemia ([facility])- Primary Primary hypertension ([facility]) Unspecified essential hypertension Edema of extremities Edema Type 2 diabetes mellitus without complication, with long-term current use of insulin ([facility]) Vitamin D deficiency Tobacco user Tobacco use disorder Dizziness and giddiness Atrial fibrillation, unspecified type ([facility]) COPD mixed type ([facility]) Open wound of buttock, unspecified laterality, initial encounter- Primary Type 2 diabetes mellitus without complication, with long-term current use of insulin ([facility]) Obesity (BMI 30-39.9) Dizziness and giddiness Viral upper respiratory tract infection- Primary Acute upper respiratory infections of unspecified site Tobacco user Tobacco use disorder Open wound Open wound(s) (multiple) of unspecified site(s), without mention of complication Obesity (BMI 30-39.9) Type 2 diabetes mellitus without complication, with long-term current use of insulin ([facility]) COPD mixed type ([facility]) URI, acute Acute upper respiratory infections of unspecified site documented in this encounter [facility] HealthcareEvaluation note* Diagnosis Type 2 diabetes mellitus with other skin ulcer, with long-term current use of insulin ([facility])- Primary Stage III pressure [place] of sacral region [place] [place] Open wound Open wound(s) (multiple) of unspecified site(s), without mention of complication documented in this encounter [facility] SystemEvaluation note* Diagnosis Primary hypertension ([facility])- Primary Unspecified essential hypertension Type 2 diabetes mellitus with diabetic neuropathy, with long-term current use of insulin ([facility]) Gastroesophageal reflux disease, unspecified whether esophagitis present Vitamin D deficiency Type 2 diabetes mellitus with complication, without long-term current use of insulin ([facility]) Mixed hyperlipidemia ([facility]) Mixed hyperlipidemia Encounter for screening mammogram for malignant neoplasm of breast SANTO (obstructive sleep apnea) Obstructive sleep apnea (adult) (pediatric) COPD mixed type ([facility]) Anxiety and depression ([facility]) COVID Open wound Open wound(s) (multiple) of unspecified site(s), without mention of complication Morbid obesity with body mass index (BMI) of 40.0 to 49.9 ([facility]) COPD mixed type ([facility])- Primary Dysuria Atrial fibrillation, unspecified type ([facility]) Gastroesophageal reflux disease, unspecified whether esophagitis present Type 2 diabetes mellitus with complication, without long-term current use of insulin ([facility]) Obesity (BMI 30-39.9) Tobacco user Tobacco use disorder Anxiety and depression ([facility]) Dermatitis Contact dermatitis and other eczema, due to unspecified cause Anxiety and depression ([facility])- Primary Obesity (BMI 30-39.9) Type 2 diabetes mellitus with complication, without long-term current use of insulin ([facility]) Medical non-compliance Tobacco user Tobacco use disorder Type 2 diabetes mellitus with hyperglycemia ([facility])- Primary Primary hypertension ([facility]) Unspecified essential hypertension Edema of extremities Edema Type 2 diabetes mellitus without complication, with long-term current use of insulin ([facility]) Vitamin D deficiency Tobacco user Tobacco use disorder Dizziness and giddiness Atrial fibrillation, unspecified type ([facility]) COPD mixed type ([facility]) Open wound of buttock, unspecified laterality, initial encounter- Primary Type 2 diabetes mellitus without complication, with long-term current use of insulin ([facility]) Obesity (BMI 30-39.9) Dizziness and giddiness Viral upper respiratory tract infection- Primary Acute upper respiratory infections of unspecified site Tobacco user Tobacco use disorder Open wound Open wound(s) (multiple) of unspecified site(s), without mention of complication Obesity (BMI 30-39.9) Type 2 diabetes mellitus without complication, with long-term current use of insulin ([facility]) Encounter for wellness examination- Primary Osteoporosis, unspecified osteoporosis type, unspecified pathological fracture presence ([facility]) Open wound of buttock, unspecified laterality, initial encounter Type 2 diabetes mellitus without complication, with long-term current use of insulin ([facility]) Obesity (BMI 30-39.9) Tobacco user Tobacco use disorder Anxiety and depression ([facility]) Type 2 diabetes mellitus with diabetic neuropathy, with long-term current use of insulin ([facility]) COPD mixed type ([facility]) Diabetic polyneuropathy associated with type 2 diabetes mellitus ([facility]) Gastroesophageal reflux disease, unspecified whether esophagitis present Mixed hyperlipidemia ([facility]) Mixed hyperlipidemia Primary hypertension ([facility]) Unspecified essential hypertension Edema of extremities Edema Lung nodule, multiple Lymphadenopathy, generalized Vitamin D deficiency Oxygen dependent Dependence on supplemental oxygen Community acquired pneumonia, unspecified laterality documented in this encounter [facility] HealthcareEvaluation note* Diagnosis Primary hypertension ([facility])- Primary Unspecified essential hypertension Type 2 diabetes mellitus with diabetic neuropathy, with long-term current use of insulin ([facility]) Gastroesophageal reflux disease, unspecified whether esophagitis present Vitamin D deficiency Type 2 diabetes mellitus with complication, without long-term current use of insulin ([facility]) Mixed hyperlipidemia ([facility]) Mixed hyperlipidemia Encounter for screening mammogram for malignant neoplasm of breast SANTO (obstructive sleep apnea) Obstructive sleep apnea (adult) (pediatric) COPD mixed type ([facility]) Anxiety and depression ([facility]) COVID Open wound Open wound(s) (multiple) of unspecified site(s), without mention of complication Morbid obesity with body mass index (BMI) of 40.0 to 49.9 ([facility]) COPD mixed type ([facility])- Primary Dysuria Atrial fibrillation, unspecified type ([facility]) Gastroesophageal reflux disease, unspecified whether esophagitis present Type 2 diabetes mellitus with complication, without long-term current use of insulin ([facility]) Obesity (BMI 30-39.9) Tobacco user Tobacco use disorder Anxiety and depression ([facility]) Dermatitis Contact dermatitis and other eczema, due to unspecified cause Anxiety and depression ([facility])- Primary Obesity (BMI 30-39.9) Type 2 diabetes mellitus with complication, without long-term current use of insulin ([facility]) Medical non-compliance Tobacco user Tobacco use disorder Type 2 diabetes mellitus with hyperglycemia ([facility])- Primary Primary hypertension ([facility]) Unspecified essential hypertension Edema of extremities Edema Type 2 diabetes mellitus without complication, with long-term current use of insulin ([facility]) Vitamin D deficiency Tobacco user Tobacco use disorder Dizziness and giddiness Atrial fibrillation, unspecified type ([facility]) COPD mixed type ([facility]) Open wound of buttock, unspecified laterality, initial encounter- Primary Type 2 diabetes mellitus without complication, with long-term current use of insulin ([facility]) Obesity (BMI 30-39.9) Dizziness and giddiness Viral upper respiratory tract infection- Primary Acute upper respiratory infections of unspecified site Tobacco user Tobacco use disorder Open wound Open wound(s) (multiple) of unspecified site(s), without mention of complication Obesity (BMI 30-39.9) Type 2 diabetes mellitus without complication, with long-term current use of insulin ([facility]) Encounter for wellness examination- Primary Osteoporosis, unspecified osteoporosis type, unspecified pathological fracture presence ([facility]) Open wound of buttock, unspecified laterality, initial encounter Type 2 diabetes mellitus without complication, with long-term current use of insulin ([facility]) Obesity (BMI 30-39.9) Tobacco user Tobacco use disorder Anxiety and depression ([facility]) Type 2 diabetes mellitus with diabetic neuropathy, with long-term current use of insulin ([facility]) COPD mixed type ([facility]) Diabetic polyneuropathy associated with type 2 diabetes mellitus ([facility]) Gastroesophageal reflux disease, unspecified whether esophagitis present Mixed hyperlipidemia ([facility]) Mixed hyperlipidemia Primary hypertension ([facility]) Unspecified essential hypertension Edema of extremities Edema Lung nodule, multiple Lymphadenopathy, generalized Vitamin D deficiency Oxygen dependent Dependence on supplemental oxygen Community acquired pneumonia, unspecified laterality COPD mixed type ([facility])- Primary SANTO (obstructive sleep apnea) Obstructive sleep apnea (adult) (pediatric) Lung nodule, multiple Community acquired pneumonia, unspecified laterality Primary hypertension ([facility]) Unspecified essential hypertension Atrial fibrillation, unspecified type ([facility]) Type 2 diabetes mellitus without complication, with long-term current use of insulin ([facility]) Tobacco user Tobacco use disorder Needs flu shot Need for prophylactic vaccination and inoculation against influenza documented in this encounter [facility] HealthcareEvaluation note* Diagnosis Type 2 diabetes mellitus with hyperglycemia ([facility])- Primary Primary hypertension ([facility]) Unspecified essential hypertension Edema of extremities Edema Type 2 diabetes mellitus without complication, with long-term current use of insulin ([facility]) Vitamin D deficiency Tobacco user Tobacco use disorder Dizziness and giddiness Atrial fibrillation, unspecified type ([facility]) COPD mixed type ([facility]) documented in this encounter [facility] HealthcareEvaluation note* Diagnosis Primary hypertension ([facility])- Primary Unspecified essential hypertension Type 2 diabetes mellitus with diabetic neuropathy, with long-term current use of insulin ([facility]) Gastroesophageal reflux disease, unspecified whether esophagitis present Vitamin D deficiency Type 2 diabetes mellitus with complication, without long-term current use of insulin ([facility]) Mixed hyperlipidemia ([facility] [place]) Mixed hyperlipidemia Encounter for screening mammogram for malignant neoplasm of breast SANTO (obstructive sleep apnea) Obstructive sleep apnea (adult) (pediatric) COPD mixed type ([facility]) Anxiety and depression ([facility]) COVID Open wound Open wound(s) (multiple) of unspecified site(s), without mention of complication Morbid obesity with body mass index (BMI) of 40.0 to 49.9 ([facility]) COPD mixed type ([facility])- Primary Dysuria Atrial fibrillation, unspecified type ([facility] [place]) Gastroesophageal reflux disease, unspecified whether esophagitis present Type 2 diabetes mellitus with complication, without long-term current use of insulin ([facility]) Obesity (BMI 30-39.9) Tobacco user Tobacco use disorder Anxiety and depression ([facility] [place]) Dermatitis Contact dermatitis and other eczema, due to unspecified cause Anxiety and depression ([facility] [place])- Primary Obesity (BMI 30-39.9) Type 2 diabetes mellitus with complication, without long-term current use of insulin ([facility]) Medical non-compliance Tobacco user Tobacco use disorder Type 2 diabetes mellitus with hyperglycemia ([facility] [place])- Primary Primary hypertension ([facility] [place]) Unspecified essential hypertension Edema of extremities Edema Type 2 diabetes mellitus without complication, with long-term current use of insulin ([facility] [place]) Vitamin D deficiency Tobacco user Tobacco use disorder Dizziness and giddiness Atrial fibrillation, unspecified type ([facility]) COPD mixed type ([facility] [place]) Open wound of buttock, unspecified laterality, initial encounter- Primary Type 2 diabetes mellitus without complication, with long-term current use of insulin ([facility]) Obesity (BMI 30-39.9) Dizziness and giddiness Viral upper respiratory tract infection- Primary Acute upper respiratory infections of unspecified site Tobacco user Tobacco use disorder Open wound Open wound(s) (multiple) of unspecified site(s), without mention of complication Obesity (BMI 30-39.9) Type 2 diabetes mellitus without complication, with long-term current use of insulin ([facility]) Encounter for wellness examination- Primary Osteoporosis, unspecified osteoporosis type, unspecified pathological fracture presence ([facility]) Open wound of buttock, unspecified laterality, initial encounter Type 2 diabetes mellitus without complication, with long-term current use of insulin ([facility]) Obesity (BMI 30-39.9) Tobacco user Tobacco use disorder Anxiety and depression ([facility]) Type 2 diabetes mellitus with diabetic neuropathy, with long-term current use of insulin ([facility]) COPD mixed type ([facility]) Diabetic polyneuropathy associated with type 2 diabetes mellitus ([facility]) Gastroesophageal reflux disease, unspecified whether esophagitis present Mixed hyperlipidemia ([facility]) Mixed hyperlipidemia Primary hypertension ([facility]) Unspecified essential hypertension Edema of extremities Edema Lung nodule, multiple Lymphadenopathy, generalized Vitamin D deficiency Oxygen dependent Dependence on supplemental oxygen Community acquired pneumonia, unspecified laterality COPD mixed type ([facility])- Primary SANTO (obstructive sleep apnea) Obstructive sleep apnea (adult) (pediatric) Lung nodule, multiple Community acquired pneumonia, unspecified laterality Primary hypertension ([facility]) Unspecified essential hypertension Atrial fibrillation, unspecified type ([facility]) Type 2 diabetes mellitus without complication, with long-term current use of insulin ([facility]) Tobacco user Tobacco use disorder Needs flu shot Need for prophylactic vaccination and inoculation against influenza Lung nodule, multiple- Primary documented in this encounter [facility] HealthcareEvaluation note* Diagnosis Primary hypertension ([facility])- Primary Unspecified essential hypertension Type 2 diabetes mellitus with diabetic neuropathy, with long-term current use of insulin ([facility]) Gastroesophageal reflux disease, unspecified whether esophagitis present Vitamin D deficiency Type 2 diabetes mellitus with complication, without long-term current use of insulin ([facility]) Mixed hyperlipidemia ([facility]) Mixed hyperlipidemia Encounter for screening mammogram for malignant neoplasm of breast SANTO (obstructive sleep apnea) Obstructive sleep apnea (adult) (pediatric) COPD mixed type ([facility]) Anxiety and depression ([facility]) COVID Open wound Open wound(s) (multiple) of unspecified site(s), without mention of complication Morbid obesity with body mass index (BMI) of 40.0 to 49.9 ([facility]) COPD mixed type ([facility] Primary Dysuria Atrial fibrillation, unspecified type ([facility]) Gastroesophageal reflux disease, unspecified whether esophagitis present Type 2 diabetes mellitus with complication, without long-term current use of insulin ([facility]) Obesity (BMI 30-39.9) Tobacco user Tobacco use disorder Anxiety and depression ([facility]) Dermatitis Contact dermatitis and other eczema, due to unspecified cause Anxiety and depression ([facility])- Primary Obesity (BMI 30-39.9) Type 2 diabetes mellitus with complication, without long-term current use of insulin ([facility]) Medical non-compliance Tobacco user Tobacco use disorder Type 2 diabetes mellitus with hyperglycemia ([facility])- Primary Primary hypertension ([facility]) Unspecified essential hypertension Edema of extremities Edema Type 2 diabetes mellitus without complication, with long-term current use of insulin ([facility]) Vitamin D deficiency Tobacco user Tobacco use disorder Dizziness and giddiness Atrial fibrillation, unspecified type ([facility]) COPD mixed type ([facility]) Open wound of buttock, unspecified laterality, initial encounter- Primary Type 2 diabetes mellitus without complication, with long-term current use of insulin ([facility]) Obesity (BMI 30-39.9) Dizziness and giddiness Viral upper respiratory tract infection- Primary Acute upper respiratory infections of unspecified site Tobacco user Tobacco use disorder Open wound Open wound(s) (multiple) of unspecified site(s), without mention of complication Obesity (BMI 30-39.9) Type 2 diabetes mellitus without complication, with long-term current use of insulin ([facility]) Encounter for wellness examination- Primary Osteoporosis, unspecified osteoporosis type, unspecified pathological fracture presence ([facility]) Open wound of buttock, unspecified laterality, initial encounter Type 2 diabetes mellitus without complication, with long-term current use of insulin ([facility]) Obesity (BMI 30-39.9) Tobacco user Tobacco use disorder Anxiety and depression ([facility]) Type 2 diabetes mellitus with diabetic neuropathy, with long-term current use of insulin ([facility]) COPD mixed type ([facility]) Diabetic polyneuropathy associated with type 2 diabetes mellitus ([facility]) Gastroesophageal reflux disease, unspecified whether esophagitis present Mixed hyperlipidemia ([facility]) Mixed hyperlipidemia Primary hypertension ([facility]) Unspecified essential hypertension Edema of extremities Edema Lung nodule, multiple Lymphadenopathy, generalized Vitamin D deficiency Oxygen dependent Dependence on supplemental oxygen Community acquired pneumonia, unspecified laterality COPD mixed type ([facility])- Primary SANTO (obstructive sleep apnea) Obstructive sleep apnea (adult) (pediatric) Lung nodule, multiple Community acquired pneumonia, unspecified laterality Primary hypertension ([facility]) Unspecified essential hypertension Atrial fibrillation, unspecified type ([facility]) Type 2 diabetes mellitus without complication, with long-term current use of insulin ([facility]) Tobacco user Tobacco use disorder Needs flu shot Need for prophylactic vaccination and inoculation against influenza Right wrist pain- Primary Pain in joint, forearm Obesity (BMI 30-39.9) documented in this encounter [facility] HealthcareEvaluation note* Diagnosis Primary hypertension ([facility])- Primary Unspecified essential hypertension Type 2 diabetes mellitus with diabetic neuropathy, with long-term current use of insulin ([facility]) Gastroesophageal reflux disease, unspecified whether esophagitis present Vitamin D deficiency Type 2 diabetes mellitus with complication, without long-term current use of insulin ([facility]) Mixed hyperlipidemia ([facility]) Mixed hyperlipidemia Encounter for screening mammogram for malignant neoplasm of breast SATNO (obstructive sleep apnea) Obstructive sleep apnea (adult) (pediatric) COPD mixed type ([facility]) Anxiety and depression ([facility]) COVID Open wound Open wound(s) (multiple) of unspecified site(s), without mention of complication Morbid obesity with body mass index (BMI) of 40.0 to 49.9 ([facility]) COPD mixed type ([facility])- Primary Dysuria Atrial fibrillation, unspecified type ([facility]) Gastroesophageal reflux disease, unspecified whether esophagitis present Type 2 diabetes mellitus with complication, without long-term current use of insulin ([facility]) Obesity (BMI 30-39.9) Tobacco user Tobacco use disorder Anxiety and depression ([facility]) Dermatitis Contact dermatitis and other eczema, due to unspecified cause Anxiety and depression ([facility])- Primary Obesity (BMI 30-39.9) Type 2 diabetes mellitus with complication, without long-term current use of insulin ([facility]) Medical non-compliance Tobacco user Tobacco use disorder Type 2 diabetes mellitus with hyperglycemia ([facility])- Primary Primary hypertension ([facility]) Unspecified essential hypertension Edema of extremities Edema Type 2 diabetes mellitus without complication, with long-term current use of insulin ([facility]) Vitamin D deficiency Tobacco user Tobacco use disorder Dizziness and giddiness Atrial fibrillation, unspecified type ([facility]) COPD mixed type ([facility]) Open wound of buttock, unspecified laterality, initial encounter- Primary Type 2 diabetes mellitus without complication, with long-term current use of insulin ([facility]) Obesity (BMI 30-39.9) Dizziness and giddiness Viral upper respiratory tract infection- Primary Acute upper respiratory infections of unspecified site Tobacco user Tobacco use disorder Open wound Open wound(s) (multiple) of unspecified site(s), without mention of complication Obesity (BMI 30-39.9) Type 2 diabetes mellitus without complication, with long-term current use of insulin ([facility]) Type 2 diabetes mellitus with hyperglycemia, with long-term current use of insulin ([facility])- Primary Encounter for dietary consultation Vitamin D deficiency Primary hypertension ([facility]) Unspecified essential hypertension Hyperlipemia, mixed ([facility]) Mixed hyperlipidemia Insulin long-term use ([facility]) Encounter for long-term (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 Class 1 obesity due to excess calories without serious comorbidity with body mass index (BMI) of 33.0 to 33.9 in adult documented in this encounter [facility] HealthcareEvaluation note* Diagnosis Open wound of buttock, unspecified laterality, initial encounter- Primary Type 2 diabetes mellitus without complication, with long-term current use of insulin ([facility]) Obesity (BMI 30-39.9) Dizziness and giddiness documented in this encounter [facility] HealthcareEvaluation note* Diagnosis Primary hypertension ([facility])- Primary Unspecified essential hypertension Type 2 diabetes mellitus with diabetic neuropathy, with long-term current use of insulin ([facility]) Gastroesophageal reflux disease, unspecified whether esophagitis present Vitamin D deficiency Type 2 diabetes mellitus with complication, without long-term current use of insulin ([facility]) Mixed hyperlipidemia ([facility]) Mixed hyperlipidemia Encounter for screening mammogram for malignant neoplasm of breast SANTO (obstructive sleep apnea) Obstructive sleep apnea (adult) (pediatric) COPD mixed type ([facility]) Anxiety and depression ([facility]) COVID Open wound Open wound(s) (multiple) of unspecified site(s), without mention of complication Morbid obesity with body mass index (BMI) of 40.0 to 49.9 ([facility]) COPD mixed type ([facility])- Primary Dysuria Atrial fibrillation, unspecified type ([facility]) Gastroesophageal reflux disease, unspecified whether esophagitis present Type 2 diabetes mellitus with complication, without long-term current use of insulin ([facility]) Obesity (BMI 30-39.9) Tobacco user Tobacco use disorder Anxiety and depression ([facility]) Dermatitis Contact dermatitis and other eczema, due to unspecified cause Anxiety and depression ([facility])- Primary Obesity (BMI 30-39.9) Type 2 diabetes mellitus with complication, without long-term current use of insulin ([facility]) Medical non-compliance Tobacco user Tobacco use disorder Type 2 diabetes mellitus with hyperglycemia ([facility])- Primary Primary hypertension ([facility]) Unspecified essential hypertension Edema of extremities Edema Type 2 diabetes mellitus without complication, with long-term current use of insulin ([facility]) Vitamin D deficiency Tobacco user Tobacco use disorder Dizziness and giddiness Atrial fibrillation, unspecified type ([facility]) COPD mixed type ([facility]) Open wound of buttock, unspecified laterality, initial encounter- Primary Type 2 diabetes mellitus without complication, with long-term current use of insulin ([facility]) Obesity (BMI 30-39.9) Dizziness and giddiness Viral upper respiratory tract infection- Primary Acute upper respiratory infections of unspecified site Tobacco user Tobacco use disorder Open wound Open wound(s) (multiple) of unspecified site(s), without mention of complication Obesity (BMI 30-39.9) Type 2 diabetes mellitus without complication, with long-term current use of insulin ([facility]) Encounter for wellness examination- Primary Osteoporosis, unspecified osteoporosis type, unspecified pathological fracture presence ([facility]) Open wound of buttock, unspecified laterality, initial encounter Type 2 diabetes mellitus without complication, with long-term current use of insulin ([facility]) Obesity (BMI 30-39.9) Tobacco user Tobacco use disorder Anxiety and depression ([facility]) Type 2 diabetes mellitus with diabetic neuropathy, with long-term current use of insulin ([facility]) COPD mixed type ([facility]) Diabetic polyneuropathy associated with type 2 diabetes mellitus ([facility]) Gastroesophageal reflux disease, unspecified whether esophagitis present Mixed hyperlipidemia ([facility]) Mixed hyperlipidemia Primary hypertension ([facility]) Unspecified essential hypertension Edema of extremities Edema Lung nodule, multiple Lymphadenopathy, generalized Vitamin D deficiency Oxygen dependent Dependence on supplemental oxygen Community acquired pneumonia, unspecified laterality COPD mixed type ([facility])- Primary SANTO (obstructive sleep apnea) Obstructive sleep apnea (adult) (pediatric) Lung nodule, multiple Community acquired pneumonia, unspecified laterality Primary hypertension ([facility]) Unspecified essential hypertension Atrial fibrillation, unspecified type ([facility]) Type 2 diabetes mellitus without complication, with long-term current use of insulin ([facility]) Tobacco user Tobacco use disorder Needs flu shot Need for prophylactic vaccination and inoculation against influenza Right wrist pain- Primary Pain in joint, forearm Obesity (BMI 30-39.9) Lung nodule, multiple- Primary COPD mixed type ([facility]) documented in this encounter [facility] HealthcareEvaluation note* Diagnosis Primary hypertension ([facility])- Primary Unspecified essential hypertension Type 2 diabetes mellitus with diabetic neuropathy, with long-term current use of insulin ([facility]) Gastroesophageal reflux disease, unspecified whether esophagitis present Vitamin D deficiency Type 2 diabetes mellitus with complication, without long-term current use of insulin ([facility]) Mixed hyperlipidemia ([facility]) Mixed hyperlipidemia Encounter for screening mammogram for malignant neoplasm of breast SANTO (obstructive sleep apnea) Obstructive sleep apnea (adult) (pediatric) COPD mixed type ([facility]) Anxiety and depression ([facility]) COVID Open wound Open wound(s) (multiple) of unspecified site(s), without mention of complication Morbid obesity with body mass index (BMI) of 40.0 to 49.9 ([facility]) COPD mixed type ([facility])- Primary Dysuria Atrial fibrillation, unspecified type (CMS/[facility]) Gastroesophageal reflux disease, unspecified whether esophagitis present Type 2 diabetes mellitus with complication, without long-term current use of insulin ([facility]) Obesity (BMI 30-39.9) Tobacco user Tobacco use disorder Anxiety and depression ([facility]) Dermatitis Contact dermatitis and other eczema, due to unspecified cause Anxiety and depression ([facility])- Primary Obesity (BMI 30-39.9) Type 2 diabetes mellitus with complication, without long-term current use of insulin ([facility]) Medical non-compliance Tobacco user Tobacco use disorder Type 2 diabetes mellitus with hyperglycemia ([facility])- Primary Primary hypertension ([facility]) Unspecified essential hypertension Edema of extremities Edema Type 2 diabetes mellitus without complication, with long-term current use of insulin ([facility]) Vitamin D deficiency Tobacco user Tobacco use disorder Dizziness and giddiness Atrial fibrillation, unspecified type ([facility]) COPD mixed type ([facility]) Open wound of buttock, unspecified laterality, initial encounter- Primary Type 2 diabetes mellitus without complication, with long-term current use of insulin ([facility]) Obesity (BMI 30-39.9) Dizziness and giddiness Viral upper respiratory tract infection- Primary Acute upper respiratory infections of unspecified site Tobacco user Tobacco use disorder Open wound Open wound(s) (multiple) of unspecified site(s), without mention of complication Obesity (BMI 30-39.9) Type 2 diabetes mellitus without complication, with long-term current use of insulin ([facility]) Encounter for wellness examination- Primary Osteoporosis, unspecified osteoporosis type, unspecified pathological fracture presence ([facility]) Open wound of buttock, unspecified laterality, initial encounter Type 2 diabetes mellitus without complication, with long-term current use of insulin ([facility]) Obesity (BMI 30-39.9) Tobacco user Tobacco use disorder Anxiety and depression ([facility]) Type 2 diabetes mellitus with diabetic neuropathy, with long-term current use of insulin ([facility]) COPD mixed type ([facility]) Diabetic polyneuropathy associated with type 2 diabetes mellitus ([facility]) Gastroesophageal reflux disease, unspecified whether esophagitis present Mixed hyperlipidemia ([facility]) Mixed hyperlipidemia Primary hypertension ([facility]) Unspecified essential hypertension Edema of extremities Edema Lung nodule, multiple Lymphadenopathy, generalized Vitamin D deficiency Oxygen dependent Dependence on supplemental oxygen Community acquired pneumonia, unspecified laterality COPD mixed type ([facility])- Primary SANTO (obstructive sleep apnea) Obstructive sleep apnea (adult) (pediatric) Lung nodule, multiple Community acquired pneumonia, unspecified laterality Primary hypertension ([facility]) Unspecified essential hypertension Atrial fibrillation, unspecified type ([facility]) Type 2 diabetes mellitus without complication, with long-term current use of insulin ([facility]) Tobacco user Tobacco use disorder Needs flu shot Need for prophylactic vaccination and inoculation against influenza Right wrist pain- Primary Pain in joint, forearm Obesity (BMI 30-39.9) 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 ([facility])- Primary documented in this encounter [facility]* Diagnosis Primary hypertension ([facility])- Primary Unspecified essential hypertension Type 2 diabetes mellitus with diabetic neuropathy, with long-term current use of insulin ([facility]) Gastroesophageal reflux disease, unspecified whether esophagitis present Vitamin D deficiency Type 2 diabetes mellitus with complication, without long-term current use of insulin ([facility]) Mixed hyperlipidemia ([facility]) Mixed hyperlipidemia Encounter for screening mammogram for malignant neoplasm of breast SANTO (obstructive sleep apnea) Obstructive sleep apnea (adult) (pediatric) COPD mixed type ([facility]) Anxiety and depression ([facility]) COVID Open wound Open wound(s) (multiple) of unspecified site(s), without mention of complication Morbid obesity with body mass index (BMI) of 40.0 to 49.9 ([facility]) COPD mixed type ([facility])- Primary Dysuria Atrial fibrillation, unspecified type ([facility]) Gastroesophageal reflux disease, unspecified whether esophagitis present Type 2 diabetes mellitus with complication, without long-term current use of insulin ([facility]) Obesity (BMI 30-39.9) Tobacco user Tobacco use disorder Anxiety and depression ([facility]) Dermatitis Contact dermatitis and other eczema, due to unspecified cause Anxiety and depression ([facility])- Primary Obesity (BMI 30-39.9) Type 2 diabetes mellitus with complication, without long-term current use of insulin ([facility]) Medical non-compliance Tobacco user Tobacco use disorder Type 2 diabetes mellitus with hyperglycemia ([facility])- Primary Primary hypertension ([facility]) Unspecified essential hypertension Edema of extremities Edema Type 2 diabetes mellitus without complication, with long-term current use of insulin ([facility]) Vitamin D deficiency Tobacco user Tobacco use disorder Dizziness and giddiness Atrial fibrillation, unspecified type ([facility]) COPD mixed type ([facility]) Open wound of buttock, unspecified laterality, initial encounter- Primary Type 2 diabetes mellitus without complication, with long-term current use of insulin ([facility]) Obesity (BMI 30-39.9) Dizziness and giddiness Viral upper respiratory tract infection- Primary Acute upper respiratory infections of unspecified site Tobacco user Tobacco use disorder Open wound Open wound(s) (multiple) of unspecified site(s), without mention of complication Obesity (BMI 30-39.9) Type 2 diabetes mellitus without complication, with long-term current use of insulin ([facility]) Encounter for wellness examination- Primary Osteoporosis, unspecified osteoporosis type, unspecified pathological fracture presence ([facility]) Open wound of buttock, unspecified laterality, initial encounter Type 2 diabetes mellitus without complication, with long-term current use of insulin ([facility]) Obesity (BMI 30-39.9) Tobacco user Tobacco use disorder Anxiety and depression ([facility]) Type 2 diabetes mellitus with diabetic neuropathy, with long-term current use of insulin ([facility]) COPD mixed type ([facility]) Diabetic polyneuropathy associated with type 2 diabetes mellitus ([facility]) Gastroesophageal reflux disease, unspecified whether esophagitis present Mixed hyperlipidemia ([facility]) Mixed hyperlipidemia Primary hypertension (CMS/HCC) Unspecified essential hypertension Edema of extremities Edema Lung nodule, multiple Lymphadenopathy, generalized Vitamin D deficiency Oxygen dependent Dependence on supplemental oxygen Community acquired pneumonia, unspecified laterality COPD mixed type (CMS/HCC)- Primary SANTO (obstructive sleep apnea) Obstructive sleep apnea (adult) (pediatric) Lung nodule, multiple Community acquired pneumonia, unspecified laterality Primary hypertension (CMS/HCC) Unspecified essential hypertension Atrial fibrillation, unspecified type (CMS/HCC) Type 2 diabetes mellitus without complication, with long-term current use of insulin (CMS/HCC) Tobacco user Tobacco use disorder Needs flu shot Need for prophylactic vaccination and inoculation against influenza Right wrist pain- Primary Pain in joint, forearm Obesity (BMI 30-39.9) 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 (CMS/HCC)- Primary Oxygen dependent- Primary Dependence on supplemental oxygen COPD mixed type (CMS/HCC) Obesity (BMI 30-39.9) COPD with acute exacerbation (CMS/HCC) documented in this encounter [facility]ative)* Consultation (Routine) - Pending Review Specialty Diagnoses / Procedures Referred By Contac t Referred To Contact Wound Care Diagnoses Open wound Type 2 diabetes mellitus without complication, with long-term current use of insulin (CMS/HCC) Procedures [place] OFFICE/OUTPATIENT NEW HIGH MDM 60 MINUTES Maira Rush NP [address] [place] [address] Referral ID Status Reason Start Date Expiration Date Visits Requested Visits Authorized [id number] Pending Review Specialty Services Required 03/11/2024 09/07/2024 1 1 Scheduling Instructions Please call [facility] and schedule pt with their wound care clinic [facility] Summary Purpose Family History No Family History Records FoundNo Family History Records FoundNo Family History Records FoundNo Family History Records FoundNo Family History Records FoundNo Family History Records FoundNo Family History Records Found Advance Directives Date Activated Date Inactivated Comments 01/16/2024 3:39 PM 01/22/2024 10:18 AM Reason for Referral Specialty Diagnoses / Procedures Referred By Contac t Referred To Contact Diagnoses COPD mixed type (CMS/HCC) Maira Rush NP [address] [place] [address] Referral ID Status Reason Start Date Expiration Date V isits Requested Visits Authorized [id number] Pending Review 1 1 Additional Source Comments INFORMATION SOURCE (unrecogn ized section and content) DATE CREATED AUTHOR 10/06/2018 [facility] DATE CREATED AUTHOR AUTHOR'S ORGANIZ ATION 10/09/2022 [facility] DATE CREATED AUTHOR AUTHOR'S ORGANIZ ATION 09/05/2023 [place] DATE CREATED AUTHOR AUTHOR'S ORGANIZ ATION 01/25/2024 [facility] DATE CREATED AUTHOR AUTHOR'S ORGANIZ ATION 02/14/20[facility] DATE CREATED AUTHOR AUTHOR'S ORGANIZ ATION 03/22/2024 [facility] DATE CREATED AUTHOR AUTHOR'S ORGANIZ ATION 05/22/2024 [facility] dical Specialists EPIC Care Teams (unrecognized sec tion and content) Professor Of Economics Relationship Specialty Start Date End Date Brandon Mcfarlane MD [address] [place] [phone] PCP - General Family Medicine 06/26/23 Maira Rush NP [address] [place] [phone] Referring Physician Nurse Practitioner 12/17/22 Professor Of Economics Relationship Specialty Start Date End Date Brandon Mcfarlane MD [address] [place] [address] PCP - General Family Medicine 06/26/23 Maira Rush NP [address] [place] [phone] Referring Physician Nurse Practitioner 12/17/22 Professor Of Economics Relationship Specialty Start Date End Date Brandon Mcfarlane MD [address] [place] [phone] PCP - General Family Medicine 06/26/23 Maira Rush NP [address] [place] [phone] Referring Physician Nurse Practitioner 12/17/22 Professor Of Economics Relationship Specialty Start Date End Date Brandon Mcfarlane MD [address] [place] [phone] PCP - General Family Medicine 06/26/23 Maira Rush NP [address] [place] [phone] Referring Physician Nurse Practitioner 12/17/22 Professor Of Economics Relationship Specialty Start Date End Date Brandon Mcfarlane MD [address] [place] [phone] PCP - General Family Medicine 06/26/23 Maira Rush NP [address] [place] [address] Referring Physician Nurse Practitioner 12/17/22 Professor Of Economics Relationship Specialty Start Date End Date Brandon Mcfarlane MD [address] [place] [phone] PCP - General Family Medicine 06/26/23 Maira Rush NP [address] [place] [phone] Referring Physician Nurse Practitioner 12/17/22 Professor Of Economics Relationship Specialty Start Date End Date Brandon Mcfarlane MD [address] [place] [phone] PCP - General Family Medicine 06/26/23 Maira Rush NP [address] [place] [phone] Referring Physician Nurse Practitioner 12/17/22 Professor Of Economics Relationship Specialty Start Date End Date Brandon Mcfarlane MD [address] [place] [phone] PCP - General Family Medicine 06/26/23 Maira Rush NP [address] [place] [phone] Referring Physician Nurse Practitioner 12/17/22 Professor Of Economics Relationship Specialty Start Date End Date Maira Rush, RODBUSTER-CNC MACHINE OPERATOR PCP - General Nurse Practitioner 01/16/24 Professor Of Economics Relationship Specialty Start Date End Date Brandon Mcfarlane MD [address] [place] [phone] PCP - General Family Medicine 06/26/23 Maira Rush NP [address] [place] [phone] Referring Physician Nurse Practitioner 12/17/22 Professor Of Economics Relationship Specialty Start Date End Date Brandon Mcfarlane MD [address] [place] [phone] PCP - General Family Medicine 06/26/23 Maira Rush NP [address] [place] [phone] Referring Physician Nurse Practitioner 12/17/22 Professor Of Economics Relationship Specialty Start Date End Date Brandon Mcfarlane MD [address] [place] [phone] PCP - General Family Medicine 06/26/23 Maira Rush NP [address] [place] [phone] Referring Physician Nurse Practitioner 12/17/22 Professor Of Economics Relationship Specialty Start Date End Date Brandon Mcfarlane MD [address] [place] [phone] PCP - General Family Medicine 06/26/23 Maira Rush NP [address] [place] [phone] Referring Physician Nurse Practitioner 12/17/22 Professor Of Economics Relationship Specialty Start Date End Date Brandon Mcfarlane MD [address] [place] [phone] PCP - General Family Medicine 06/26/23 Maira Rush NP [address] [place] [phone] Referring Physician Nurse Practitioner 12/17/22 Professor Of Economics Relationship Specialty Start Date End Date Brandon Mcfarlane MD [address] [place] [phone] PCP - General Family Medicine 06/26/23 Maira Rush NP [address] [place] [phone] Referring Physician Nurse Practitioner 12/17/22 Professor Of Economics Relationship Specialty Start Date End Date Brandon Mcfarlane MD [address] [place] [phone] PCP - General Family Medicine 06/26/23 Maira Rush NP [address] [place] [phone] Referring Physician Nurse Practitioner 12/17/22 Professor Of Economics Relationship Specialty Start Date End Date Brandon Mcfarlane MD [address] [place] [phone] PCP - General Family Medicine 06/26/23 Maira Rush NP [address] [place] [address] Referring Physician Nurse Practitioner 12/17/22 Professor Of Economics Relationship Specialty Start Date End Date Brandon Mcfarlane MD [address] [place] [phone] PCP - General Family Medicine 06/26/23 Maira Rush NP [address] [place] [phone] Referring Physician Nurse Practitioner 12/17/22 Professor Of Economics Relationship Specialty Start Date End Date Brandon Mcfarlane MD [address] [place] [phone] PCP - General Family Medicine 06/26/23 Maira Rush NP [address] [place] [phone] Referring Physician Nurse Practitioner 12/17/22 Professor Of Economics Relationship Specialty Start Date End Date Brandon Mcfarlane MD [address] [place] [phone] PCP - General Family Medicine 06/26/23 Maira Rush NP [address] [place] [phone] Referring Physician Nurse Practitioner 12/17/22 Professor Of Economics Relationship Specialty Start Date End Date Brandon Mcfarlane MD [address] [place] [phone] PCP - General Family Medicine 06/26/23 Maira Rush NP [address] [place] [phone] Referring Physician Nurse Practitioner 12/17/22 Professor Of Economics Relationship Specialty Start Date End Date Brandon Mcfarlane MD [address] [place] [phone] PCP - General Family Medicine 06/26/23 Maira Rush NP [address] [place] [phone] Referring Physician Nurse Practitioner 12/17/22 Professor Of Economics Relationship Specialty Start Date End Date Brandon Mcfarlane MD [address] [place] [phone] PCP - General Family Medicine 06/26/23 Maira Rush NP [address] [place] [phone] Referring Physician Nurse Practitioner 12/17/22 Professor Of Economics Relationship Specialty Start Date End Date Brandon Mcfarlane MD [address] [place] [phone] PCP - General Family Medicine 06/26/23 Maira Rush NP [address] [place] [phone] Referring Physician Nurse Practitioner 12/17/22 Professor Of Economics Relationship Specialty Start Date End Date Brandon Mcfarlane MD [address] [place] [phone] PCP - General Family Medicine 06/26/23 Maira Rush NP [address] [place] [phone] Referring Physician Nurse Practitioner 12/17/22 Reason for Visit (unrecogniz ed section and content) Reason Onset Date Comments Med Refill 03/16/2024 Reason Comments Wound Check Specialty Diagnoses / Procedures Referred By Contac t Referred To Contact Wound Care Diagnoses Open wound Maira Rush, RODBUSTER-CNC MACHINE OPERATOR [address] [place] [address] Phone: tel: fax: [facility] [address] [place] [address] Phone: tel: fax: Referral ID Status Reason Start Date Expiration Date Visits Requested Visits Authorized [id number] Pending Review Specialty Services Required 4 03/13/2025 1 1 Reason Comments Diabetes Annual Exam Reason Comments Joint Swelling Reason Comments Diabetes Follow-up 1.5 YRS Reason Comments Cough URI FOR RECORDS PERTAINING TO PATIENTS WHO ARE [...] BE BASED ON THE PRIMARY CLINICAL RECORDS. [employer] provides no warranty or guarantee of the accuracy or completeness of information in this document.
[2024-05-28 12:40] VITALS: BP 152/70; PULSE 77; TEMP 36.6; O2SAT 93; BMI 32.8
--- NOTE | 2024-05-28 12:40 | ECG_ITS ---
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
[2024-05-28 12:41] VITALS: BP 152/70
--- NOTE | 2024-05-28 12:41 | XR_ITS ---
The [address] [address] Patient Name: RODDY HORN MRN: [id number] date: 1960 Sex: F Assigned Patient Location: ER Current Patient Location: ER Accession/Order Number: [id number] Exam Date: 05/28/2024 13:25 Report Date: 05/28/2024 13:48 At the request of: CHLOE WRIGHT Procedure: XR chest 1V EXAMINATION: XR chest 1V HISTORY: sob COMPARISON: XR chest 04/10/2024 FINDINGS: LUNGS: Underexpanded lungs with mild haziness and stranding within lung bases. Stable small dense nodules within right upper and left upper lobes favoring granulomas. VASCULATURE: No increased pulmonary vasculature. PLEURA: No pneumothorax, effusion, or pleural thickening. CARDIAC: No cardiomegaly or cardiac silhouette abnormality. MEDIASTINUM: No visible mass or adenopathy. BONES: No fracture or visible bone lesion. OTHER: Negative. XR/XR chest 1V IMPRESSION: 1. Underexpanded lungs with mild bibasilar infiltrates versus atelectasis; new on right, stable on left. Electronically authenticated by: ROBERT AZUL Date: 05/28/2024 13:48
--- NOTE | 2024-05-28 12:50 | ED_ITS ---
HPI HPI - General Adult General Chief complaint: Upper Respiratory Infection Stated complaint: URTI COMPLAINTS Time Seen by Provider: 05/28/24 12:26 Source: patient Mode of arrival: walk-in History of Present Illness HPI narrative: Patient is coming to us with almost 48 hours history of cough associated with a green sputum, patient has just has visited over the last 2 days her who is [facility], the patient mention also decreased appetite over the last 24 hours She already had was evaluated by her primary care before arrival and they sent her over for evaluation The patient denies any chest pain or any abdominal pain no nausea or vomiting Patient uses oxygen sometimes when needed and right now she is saturating well in room air at 95% Related Data Home Medications ?Medication ?Instructions ?Recorded ?Confirmed aspirin 81 mg tablet,delayed 81 mg PO DAILY 04/05/23 02/24/24 release budesonide-formoterol HFA 160 2 puff inhalation BID 04/05/23 02/24/24 mcg-4.5 mcg/actuation aerosol inhaler (Symbicort) calcium 500 mg (as 1 tab PO BID 04/05/23 01/03/24 carbonate)-vitamin D3 10 mcg (400 unit) tablet carvedilol 12.5 mg tablet 12.5 mg PO BID 04/05/23 02/24/24 empagliflozin 25 mg tablet 25 mg PO DAILY 04/05/23 02/24/24 (Jardiance) gabapentin 600 mg tablet 600 mg PO TID 04/05/23 02/24/24 insulin aspart U-100 100 unit/mL 1 sliding scale dose subcut 04/05/23 02/24/24 (3 mL) subcutaneous pen (Novolog TIDWMEAL FlexPen U-100 Insulin aspart) insulin glargine 100 unit/mL (3 60 unit subcut QPM 04/05/23 02/24/24 mL) subcutaneous pen (Lantus Solostar U-100 Insulin) losartan 100 mg tablet 100 mg PO DAILY 04/05/23 02/24/24 pantoprazole 40 mg tablet,delayed 40 mg PO DAILY 04/05/23 02/24/24 release potassium chloride 10 mEq 10 meq PO DAILY 04/05/23 02/24/24 capsule,extended release rivaroxaban 20 mg tablet (Xarelto) 20 mg PO DAILY 04/05/23 02/24/24 rosuvastatin 5 mg tablet 5 mg PO DAILY 04/05/23 02/24/24 spironolactone 25 mg tablet 25 mg PO BID 04/05/23 02/24/24 tiotropium bromide 2.5 2 puff inhalation DAILY 04/05/23 02/24/24 mcg/actuation mist for inhalation (Spiriva Respimat) furosemide 20 mg tablet 20 mg PO DAILY 01/03/24 02/24/24 paroxetine HCl 10 mg tablet 10 mg PO DAILY 02/24/24 02/24/24 Previous Rx's ?Medication ?Instructions ?Recorded albuterol sulfate 90 mcg/actuation 2 inh inhalation Q4H PRN shortness 06/25/23 aerosol inhaler of breath or wheezing #8.5 grams albuterol sulfate 2.5 mg/3 mL 2.5 mg (3 mL) inhalation Q6H PRN 09/16/23 (0.083 %) solution for nebulization shortness of breath or wheezing #90 mL meclizine 25 mg tablet 25 mg PO TID PRN dizziness #15 tabs 02/24/24 benzonatate 100 mg capsule 100 mg PO TID PRN cough #20 caps 04/10/24 doxycycline hyclate 100 mg tablet 100 mg PO BID 7 days #14 tabs 05/28/24 guaifenesin 600 mg tablet, 600 mg PO BID PRN congestion #14 05/28/24 extended release 12 hr (Mucinex) tabs prednisone 20 mg tablet 40 mg (2 x 20 mg) PO DAILY 5 days 05/28/24 #10 tabs Allergies Allergy/AdvReac Type Severity Reaction Status Date / Time ciprofloxacin (From Cipro) AdvReac Intermediate Vomiting Verified 05/28/24 12:40 metronidazole (From Flagyl) AdvReac Intermediate Vomiting Verified 05/28/24 12:40 Penicillins AdvReac Intermediate Vomiting Verified 05/28/24 12:40 sulfamethoxazole (From AdvReac Intermediate Vomiting Verified 05/28/24 12:40 Bactrim) trimethoprim (From Bactrim) AdvReac Intermediate Vomiting Verified 05/28/24 12:40 Opioid HPI Opioid Management Most Recent Opioid Data: Last Pain Scale 5 01/06/24 21:59 01/06/24 Review of Systems ROS Status of ROS 10 or more systems reviewed and unremark able except as noted in history and below [facility] Medical History (Updated 05/28/24 @ 14:08 by Anushka Carbajal MD) A-fib ?I48.91 - Unspecified atrial fibrillation (ICD-10) Hypertension ?I10 - Essential (primary) hypertension (ICD-10) Diabetes ?E11.9 - Type 2 diabetes mellitus without complications (ICD-10) Acute shoulder pain ?M25.519 - Pain in unspecified shoulder (ICD-10) Hyperlipidemia ?E78.5 - Hyperlipidemia, unspecified (ICD-10) Depression ?F32.A - Depression, unspecified (ICD-10) Chronic obstructive pulmonary disease ?J44.9 - Chronic obstructive pulmonary disease, unspecified (ICD-10) Surgical History (Updated 06/24/23 @ 12:13 by Aliyah Ruiz RN) History of appendectomy ?Z90.49 - Acquired absence of other specified parts of digestive tract (ICD- 10) Hx of cholecystectomy ?Z90.49 - Acquired absence of other specified parts of digestive tract (ICD- 10) H/O: hysterectomy ?Z90.710 - Acquired absence of both cervix and uterus (ICD-10) Family History (Updated 06/24/23 @ 12:13 by Aliyah Ruiz RN) Mother Family history of diabetes mellitus Grandfather Family history of diabetes mellitus Father Family history of stroke Social History Within the past year, how often did you have a drink containing alcohol: never Score interpretation: A score less than 3 is consistent with normal alcohol consumption. Smoking status: Current every day smoker Non-prescribed substance use: denies use Highest level of school completed/degree received: high school graduate Little interest or pleasure in doing things: not at all Feeling down, depressed, or hopeless: not at all Gender Identity: female Exam Narrative Exam Narrative: Nurses notes and vital signs reviewed and patient is not hypoxic. General: Well-appearing and in no apparent distress. Skin: Warm, dry, no pallor noted. No rash. Head: Normocephalic, atraumatic. Neck: Supple, non-tender. Eye: Pupils are equal, round and EOMI. No scleral icterus. Ears, Nose, Mouth, and Throat: TM are clear, no nasal mucosal hypertrophy. Oral mucosa is moist, no posterior oropharynx erythema, uvula is mid-line Cardiovascular: Regular Rate and Rhythm without murmur, gallop or rub. Respiratory: Rhonchi heard in both lung smith Back: No midline thoracic or lumbar vertebral tenderness. No CVA tenderness Musculoskeletal: normal ROM, no calf or popliteal tenderness, no lower extremity edema/swelling GI: Abdomen is soft, non-distended. Normal bowel sounds. No masses appreciated. No tenderness to palpation. No rebound, guarding, or rigidity noted. Neurological: A&O x4. No cranial nerve dysfunction observed. No truncal ataxia. Moves all extremities. Sensation intact. Psychiatric: Cooperative and interactive. Normal mood and affect. Constitutional Vital Signs, click to edit/add: Last Vital Signs Temp 97.8 F 05/28/24 12:40 Pulse 60 05/28/24 14:00 Resp 18 05/28/24 14:00 BP 152/70 H 05/28/24 12:41 Pulse Ox 94 L 05/28/24 14:00 O2 Del Method Room Air 05/28/24 12:58 Course Vital Signs Vital signs: Vital Signs Temperature 97.8 F 05/28/24 12:40 Pulse Rate 77 05/28/24 12:40 Respiratory Rate 18 05/28/24 12:40 Blood Pressure 152/70 H 05/28/24 12:40 Pulse Oximetry 93 L 05/28/24 12:40 Oxygen Delivery Method Room Air 05/28/24 12:40 Temperature 97.8 F 05/28/24 12:40 Pulse Rate 60 05/28/24 14:00 Respiratory Rate 18 05/28/24 14:00 Blood Pressure 152/70 H 05/28/24 12:41 Pulse Oximetry 94 L 05/28/24 14:00 Oxygen Delivery Method Room Air 05/28/24 12:58 Medical Decision Making [facility] Narrative Medical decision making narrative: The patient EKG in the ER showing sinus rhythm with a heart rate of [address] elevation or depression CBC and chemistry showed no acute significant pathology and the patient x-ray shows possible infiltrate although it could be atelectasis due to the patient presentation with no leukocytosis But the patient COVID is positive and her presentation is mostly secondary to COVID-19 right now the patient will be treated for mild COPD exacerbation although she does not have any wheezing but with a viral illness she will be covered with prednisone as well as doxycycline for COPD exacerbation The patient right now is saturating well at room air she is not using her oxygen she have 2 L of nasal cannula at home I did explain to the patient that she just started being sick over the last 24 hours and she would just need to monitor her symptoms in case of any worsening she is to come back to the ER Also explained to the patient extensively that she need to monitor for any dehydration also to come back to the ER The patient is to follow up with primary care physician in next 2-3 days or to return to the emergency department should any of the signs or symptoms worsen or new symptoms develop. The patient agrees with the following Diagnosis and Treatment plan and the patient will be discharged home. Lab Data Labs: Lab Results 05/28/24 05/28/24 Range/Units 13:05 13:23 WBC 9.1 (4.0-11.0) 10^3/uL RBC 5.27 (4.20-5.40) 10^6/uL Hgb 16.2 H (12.0-16.0) g/dL Hct 49.8 H (36.0-48.0) % MCV 94.5 (81.0-99.0) fL MCH 30.7 (26.7-34.0) pg MCHC 32.5 (29.9-35.2) g/dL RDW 12.5 (11.0-15.0) % Plt Count 244 (150-450) 10^3/uL MPV 10.4 (9.5-13.5) fL Neut % (Auto) 49.2 (43.0-75.0) % Lymph % (Auto) 40.1 (20.5-60.0) % Ness % (Auto) 7.6 (1.7-12.0) % Eos % (Auto) 2.6 (0.9-7.0) % Baso % (Auto) 0.4 (0.2-2.0) % Neut # (Auto) 4.5 (1.4-6.5) 10^3/uL Lymph # (Auto) 3.6 (1.2-3.8) 10^3/uL Ness # (Auto) 0.7 (0.3-0.8) 10^3/uL Eos # (Auto) 0.2 (0.0-0.7) 10^3/uL Baso # (Auto) 0.0 (0.0-0.1) 10^3/uL Abs Immat Gran (auto) 0.01 (0.00-0.03) 10^3/uL Imm/Tot Granulo (auto) 0.1 (0.0-0.5) % Sodium 143 (136-145) mmol/L Potassium 4.0 (3.5-5.1) mmol/L Chloride 105 (98-107) mmol/L Carbon Dioxide 30.3 (21.0-32.0) mmol/L Anion Gap 11.7 BUN 13.0 (7.0-18.0) mg/dL Creatinine 0.72 (0.55-1.02) mg/dL Est GFR ( Amer) >60 (>=60 mL/min/1.73m^2) Est GFR (Non-Af Amer) >60 (>=60 mL/min/1.73m^2) BUN/Creatinine Ratio 18.1 Glucose 169 H (74-106) mg/dL Calcium 8.7 (8.5-10.1) mg/dL Total Bilirubin 0.5 (0.2-1.0) mg/dL AST 14 L (15-37) U/L ALT 21 (14-59) U/L Alkaline Phosphatase 111 (46-116) U/L Troponin I High Sens 5.3 (4.0-51.3) pg/mL Total Protein 7.0 (6.4-8.2) g/dL Albumin 3.4 (3.4-5.0) g/dL Globulin 3.6 g/dL Albumin/Globulin Ratio 0.9 Influenza Type A Ag Negative Influenza Type B Ag Negative RSV Antigen Not detected (NOT DETECTE) SARS-CoV-2 Ag (CV2AG) Positive A (NEGATIVE) Discharge Plan Discharge Chief Complaint: Upper Respiratory Infection Clinical Impression: COPD exacerbation, COVID-19 Patient Disposition: Home, Self-Care Time of Disposition Decision: 14:07 Condition: Good Prescriptions / Home Meds: New prednisone 20 mg tablet 40 mg PO DAILY 5 Days Qty: 10 0RF guaifenesin [Mucinex] 600 mg tablet extended release 12hr 600 mg PO BID PRN (Reason: congestion) Qty: 14 0RF doxycycline hyclate 100 mg tablet 100 mg PO BID 7 Days Qty: 14 0RF Discontinued azithromycin [Zithromax Z-Eleazar] 250 mg tablet See Rx Instructions .ROUTE .COMPLEX Qty: 6 0RF Rx Instructions: For 250 mg dose pack: take 500 mg today (day 1), then 250 mg for 4 days (days 2-5) No Action albuterol sulfate 90 mcg/actuation HFA aerosol inhaler 2 inh inhalation Q4H PRN (Reason: shortness of breath or wheezing) Qty: 8.5 0RF albuterol sulfate 2.5 mg /3 mL (0.083 %) solution for nebulization 2.5 mg inhalation Q6H PRN (Reason: shortness of breath or wheezing) Qty: 90 0RF furosemide 20 mg tablet 20 mg PO DAILY aspirin 81 mg tablet,delayed release (DR/EC) 81 mg PO DAILY budesonide-formoterol [Symbicort] 160-4.5 mcg/actuation HFA aerosol inhaler 2 puff INHALATION BID calcium carbonate-vitamin D3 500 mg-10 mcg (400 unit) tablet 1 tab PO BID carvedilol 12.5 mg tablet 12.5 mg PO BID Jardiance 25 mg tablet 25 mg PO DAILY gabapentin 600 mg tablet 600 mg PO TID insulin aspart U-100 [Novolog FlexPen U-100 Insulin] 100 unit/mL (3 mL) insulin pen 1 sliding scale dose SUBCUT TIDWMEAL insulin glargine [Lantus Solostar U-100 Insulin] 100 unit/mL (3 mL) insulin pen 60 unit SUBCUT QPM losartan 100 mg tablet 100 mg PO DAILY pantoprazole 40 mg tablet,delayed release (DR/EC) 40 mg PO DAILY potassium chloride 10 mEq capsule, extended release 10 meq PO DAILY Xarelto 20 mg tablet 20 mg PO DAILY rosuvastatin 5 mg tablet 5 mg PO DAILY spironolactone 25 mg tablet 25 mg PO BID Spiriva Respimat 2.5 mcg/actuation mist 2 puff INHALATION DAILY paroxetine HCl 10 mg tablet 10 mg PO DAILY meclizine 25 mg tablet 25 mg PO TID PRN (Reason: dizziness) Qty: 15 0RF benzonatate 100 mg capsule 100 mg PO TID PRN (Reason: cough) Qty: 20 0RF Print Language: Haitian Instructions: COPD (Chronic Obstructive Pulmonary Disease) (DC) Referrals: Maira Rush NP [Primary Care Provider] - 1 week Discharge Date/Time: 05/28/24 14:33
[2024-05-28] MEDS: IPRATROPIUM/ALBUTEROL SULFATE 3 ML AMPUL.NEB IH (12:56)
[2024-05-28 12:58] VITALS: PULSE 64; O2SAT 92
[2024-05-28 13:00] VITALS: O2SAT 98
[2024-05-28] MEDS: METHYLPREDNISOLONE SOD SUCC PF 125 MG/2 ML VIAL IVP (13:14)
[2024-05-28 13:43] LABS: Basophils Percent Auto 0.4 % (0.2-2.0); Eosinophils Absolute Auto 0.2 10^3/uL (0.0-0.7); Eosinophils Percent Auto 2.6 % (0.9-7.0); Hematocrit 49.8 % (36.0-48.0); Hemoglobin 16.2 g/dL (12.0-16.0); Immature Granulocytes Abs Auto 0.01 10^3/uL (0.00-0.03); Immature Granulocytes Pct Auto 0.1 % (0.0-0.5); Lymphocytes Absolute Auto 3.6 10^3/uL (1.2-3.8); Lymphocytes Percent Auto 40.1 % (20.5-60.0); Mean Corpuscular HGB Conc 32.5 g/dL (29.9-35.2); Mean Corpuscular Hemoglobin 30.7 pg (26.7-34.0); Mean Corpuscular Volume 94.5 fL (81.0-99.0); Mean Platelet Volume 10.4 fL (9.5-13.5); Monocytes Absolute Auto 0.7 10^3/uL (0.3-0.8); Monocytes Percent Auto 7.6 % (1.7-12.0); Neutrophils Absolute Auto 4.5 10^3/uL (1.4-6.5); Neutrophils Percent Auto 49.2 % (43.0-75.0); Platelet Count 244 10^3/uL (150-450); Red Blood Count 5.27 10^6/uL (4.20-5.40); Red Cell Distribution Width 12.5 % (11.0-15.0); White Blood Count 9.1 10^3/uL (4.0-11.0)
[2024-05-28 13:54] LABS: Alanine Aminotransferase 21 U/L (14-59); Albumin Globulin Ratio 0.9; Albumin Level 3.4 g/dL (3.4-5.0); Alkaline Phosphatase 111 U/L (46-116); Anion Gap 11.7; Aspartate Amino Transferase 14 U/L (15-37); BUN Creatinine Ratio 18.1; Bilirubin Total 0.5 mg/dL (0.2-1.0); Calcium 8.7 mg/dL (8.5-10.1); Carbon Dioxide 30.3 mmol/L (21.0-32.0); Chloride 105 mmol/L (98-107); Estimated GFR (African America >60 (>=60 mL/min/1.73m^2); Estimated GFR (Non-African Ame >60 (>=60 mL/min/1.73m^2); Globulin 3.6 g/dL; Glucose 169 mg/dL (74-106); Sodium 143 mmol/L (136-145)
[2024-05-28 13:56] LABS: Influenza Virus A Antigen Negative; Influenza Virus B Antigen Negative; Internal Control Within Normal Limits; Respiratory Syncytial Virus Not Detected (NOT DETECTE)
[2024-05-28 13:57] LABS: Internal Control Within Normal Limits; SARS-CoV-2 Ag POSITIVE (NEGATIVE)
[2024-05-28 14:00] VITALS: PULSE 60; O2SAT 94
[2024-05-28 14:17] LABS: Troponin I High Sensitivity 5.3 pg/mL (4.0-51.3)
[2024-05-28] MEDS: AZITHROMYCIN 250 MG TABLET 500 MG PO (14:22)
== END 2024-05-28 14:33 | disposition home or self-care (01) ==
PROVIDERS: Emergency Provider Emergency Medicine; PCP Nurse Practitioner
DX: U07.1 COVID-19 (principal); J44.1 Chronic obstructive pulmonary disease with (acute) exacerbation; Z90.49 Acquired absence of other specified parts of digestive tract; Z90.710 Acquired absence of both cervix and uterus; F17.200 Nicotine dependence, unspecified, uncomplicated
CPT/HCPCS: 36415; 71045; 80053; 84484; 85025; 87420; 87804; 87811; 93005; 94640; 96374; 99285; J2919

== ENCOUNTER 2024-06-01 00:02 | Emergency (ER) | payer OTHER, SELFPAY ==
[2024-06-01 00:03] VITALS: BP 156/75; PULSE 64; TEMP 36.8; O2SAT 97; BMI 31.5
--- NOTE | 2024-06-01 00:13 | ECG_ITS ---
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
--- NOTE | 2024-06-01 00:14 | ED.GENADUL1 ---
HPI HPI - General Adult General Chief complaint: Recheck/Abnormal Lab/Rx Stated complaint: HIGH BLOOD SUGAR Time Seen by Provider: 06/01/24 00:03 Source: patient Mode of arrival: ambulance Limitations: no limitations History of Present Illness HPI narrative: 63-year-old female presents for high blood sugar. She has been on steroids for 2 days and her sugar was running high. She has been taking her diabetes medications as prescribed. She is not complaining to me now of any difficulty breathing. No fever. Related Data Home Medications ?Medication ?Instructions ?Recorded ?Confirmed aspirin 81 mg tablet,delayed 81 mg PO DAILY 04/05/23 02/24/24 release budesonide-formoterol HFA 160 2 puff inhalation BID 04/05/23 02/24/24 mcg-4.5 mcg/actuation aerosol inhaler (Symbicort) calcium 500 mg (as 1 tab PO BID 04/05/23 01/03/24 carbonate)-vitamin D3 10 mcg (400 unit) tablet carvedilol 12.5 mg tablet 12.5 mg PO BID 04/05/23 02/24/24 empagliflozin 25 mg tablet 25 mg PO DAILY 04/05/23 02/24/24 (Jardiance) gabapentin 600 mg tablet 600 mg PO TID 04/05/23 02/24/24 insulin aspart U-100 100 unit/mL 1 sliding scale dose subcut 04/05/23 02/24/24 (3 mL) subcutaneous pen (Novolog TIDWMEAL FlexPen U-100 Insulin aspart) insulin glargine 100 unit/mL (3 60 unit subcut QPM 04/05/23 02/24/24 mL) subcutaneous pen (Lantus Solostar U-100 Insulin) losartan 100 mg tablet 100 mg PO DAILY 04/05/23 02/24/24 pantoprazole 40 mg tablet,delayed 40 mg PO DAILY 04/05/23 02/24/24 release potassium chloride 10 mEq 10 meq PO DAILY 04/05/23 02/24/24 capsule,extended release rivaroxaban 20 mg tablet (Xarelto) 20 mg PO DAILY 04/05/23 02/24/24 rosuvastatin 5 mg tablet 5 mg PO DAILY 04/05/23 02/24/24 spironolactone 25 mg tablet 25 mg PO BID 04/05/23 02/24/24 tiotropium bromide 2.5 2 puff inhalation DAILY 04/05/23 02/24/24 mcg/actuation mist for inhalation (Spiriva Respimat) furosemide 20 mg tablet 20 mg PO DAILY 01/03/24 02/24/24 paroxetine HCl 10 mg tablet 10 mg PO DAILY 02/24/24 02/24/24 Previous Rx's ?Medication ?Instructions ?Recorded albuterol sulfate 90 mcg/actuation 2 inh inhalation Q4H PRN shortness 06/25/23 aerosol inhaler of breath or wheezing #8.5 grams albuterol sulfate 2.5 mg/3 mL 2.5 mg (3 mL) inhalation Q6H PRN 09/16/23 (0.083 %) solution for nebulization shortness of breath or wheezing #90 mL meclizine 25 mg tablet 25 mg PO TID PRN dizziness #15 tabs 02/24/24 benzonatate 100 mg capsule 100 mg PO TID PRN cough #20 caps 04/10/24 doxycycline hyclate 100 mg tablet 100 mg PO BID 7 days #14 tabs 05/28/24 guaifenesin 600 mg tablet, 600 mg PO BID PRN congestion #14 05/28/24 extended release 12 hr (Mucinex) tabs prednisone 20 mg tablet 40 mg (2 x 20 mg) PO DAILY 5 days 05/28/24 #10 tabs Allergies Allergy/AdvReac Type Severity Reaction Status Date / Time ciprofloxacin (From Cipro) AdvReac Intermediate Vomiting Verified 06/01/24 00:09 metronidazole (From Flagyl) AdvReac Intermediate Vomiting Verified 06/01/24 00:09 Penicillins AdvReac Intermediate Vomiting Verified 06/01/24 00:09 sulfamethoxazole (From AdvReac Intermediate Vomiting Verified 06/01/24 00:09 Bactrim) trimethoprim (From Bactrim) AdvReac Intermediate Vomiting Verified 06/01/24 00:09 Opioid HPI Opioid Management Most Recent Opioid Data: Last Pain Scale 5 01/06/24 21:59 01/06/24 Review of Systems ROS Narrative A ten point review of systems is negative except as noted above. [facility] Medical History (Updated 06/01/24 @ 02:43 by Luis Antonio Garcia MD) A-fib ?I48.91 - Unspecified atrial fibrillation (ICD-10) Hypertension ?I10 - Essential (primary) hypertension (ICD-10) Diabetes ?E11.9 - Type 2 diabetes mellitus without complications (ICD-10) Acute shoulder pain ?M25.519 - Pain in unspecified shoulder (ICD-10) Hyperlipidemia ?E78.5 - Hyperlipidemia, unspecified (ICD-10) Depression ?F32.A - Depression, unspecified (ICD-10) Chronic obstructive pulmonary disease ?J44.9 - Chronic obstructive pulmonary disease, unspecified (ICD-10) Surgical History (Updated 06/24/23 @ 12:13 by Aliyah Ruiz RN) History of appendectomy ?Z90.49 - Acquired absence of other specified parts of digestive tract (ICD-10) Hx of cholecystectomy ?Z90.49 - Acquired absence of other specified parts of digestive tract (ICD-10) H/O: hysterectomy ?Z90.710 - Acquired absence of both cervix and uterus (ICD-10) Family History (Updated 06/24/23 @ 12:13 by Aliyah Ruiz RN) Mother Family history of diabetes mellitus Grandfather Family history of diabetes mellitus Father Family history of stroke Social History Within the past year, how often did you have a drink containing alcohol: never Score interpretation: A score less than 3 is consistent with normal alcohol consumption. Smoking status: Current every day smoker Non-prescribed substance use: denies use Highest level of school completed/degree received: high school graduate Little interest or pleasure in doing things: not at all Feeling down, depressed, or hopeless: not at all Gender Identity: female Exam Narrative Exam Narrative: Nurses note and vital signs reviewed and patient is not hypoxic. General: The patient appears in no apparent distress. Patient is resting comfortably on cart. Skin: Warm, dry, no pallor noted. There is no rash noted. Head: Normocephalic, atraumatic Eye: Normal conjunctiva, no drainage Ears, Nose, Mouth, and Throat: oral mucosa is moist. Nares patent. Cardiovascular: Regular Rate and Rhythm Respiratory: Patient is in no distress, no accessory muscle use, lungs are clear to auscultation, no wheezing, rales or rhonchi. Good air movement. Back: non-tender GI: Soft and nontender Musculoskeletal: The patient has no evidence of calf tenderness, no pitting edema, symmetrical pulses noted bilaterally Neurological: A&O, normal speech Psychiatric: Cooperative Constitutional Vital Signs, click to edit/add: Last Vital Signs Temp 98.3 F 06/01/24 00:03 Pulse 64 06/01/24 00:03 Resp 20 06/01/24 00:03 BP 156/75 H 06/01/24 00:03 Pulse Ox 98 06/01/24 00:55 O2 Del Method Nasal Cannula 06/01/24 00:55 O2 Flow Rate 2 06/01/24 00:55 Course Vital Signs Vital signs: Vital Signs Temperature 98.3 F 06/01/24 00:03 Pulse Rate 64 06/01/24 00:03 Respiratory Rate 20 06/01/24 00:03 Blood Pressure 156/75 H 06/01/24 00:03 Pulse Oximetry 97 06/01/24 00:03 Oxygen Delivery Method Nasal Cannula 06/01/24 00:03 Oxygen Delivery Flow Rate 2 06/01/24 00:03 Temperature 98.3 F 06/01/24 00:03 Pulse Rate 64 06/01/24 00:03 Respiratory Rate 20 06/01/24 00:03 Blood Pressure 156/75 H 06/01/24 00:03 Pulse Oximetry 98 06/01/24 00:55 Oxygen Delivery Method Nasal Cannula 06/01/24 00:55 Oxygen Delivery Flow Rate 2 06/01/24 00:55 Medical Decision Making MDM Narrative Medical decision making narrative: The patient had elevated blood sugar upon arrival and was given IV fluids and IV insulin. Her blood sugar came down appropriately and she is able to be discharged home. She is not in DKA and is not dehydrated. She will discontinue the prednisone that appears to have induced this issue. Treatment diagnosis and follow-up were discussed with the patient. Differential Diagnosis Differential Diagnosis: Hyperglycemia, dehydration, acute kidney injury Lab Data Lab results reviewed: Yes I reviewed the patient's lab results Labs: Lab Results 06/01/24 06/01/24 06/01/24 Range/Units 00:20 00:24 00:29 WBC 14.0 H (4.0-11.0) 10^3/uL RBC 5.00 (4.20-5.40) 10^6/uL Hgb 15.7 (12.0-16.0) g/dL Hct 47.2 (36.0-48.0) % MCV 94.4 (81.0-99.0) fL MCH 31.4 (26.7-34.0) pg MCHC 33.3 (29.9-35.2) g/dL RDW 12.3 (11.0-15.0) % Plt Count 275 (150-450) 10^3/uL MPV 10.4 (9.5-13.5) fL Neut % (Auto) 80.7 H (43.0-75.0) % Lymph % (Auto) 13.7 L (20.5-60.0) % [place] % (Auto) 5.1 (1.7-12.0) % Eos % (Auto) 0.0 L (0.9-7.0) % Baso % (Auto) 0.1 L (0.2-2.0) % Neut # (Auto) 11.3 H (1.4-6.5) 10^3/uL Lymph # (Auto) 1.9 (1.2-3.8) 10^3/uL [place] # (Auto) 0.7 (0.3-0.8) 10^3/uL Eos # (Auto) 0.0 (0.0-0.7) 10^3/uL Baso # (Auto) 0.0 (0.0-0.1) 10^3/uL Abs Immat Gran (auto) 0.05 H (0.00-0.03) 10^3/uL Imm/Tot Granulo (auto) 0.4 (0.0-0.5) % VBG pH 7.364 (7.330-7.430) VBG pCO2 49.8 (40.0-52.0) mmHg Sodium 137 (136-145) mmol/L Potassium 3.5 (3.5-5.1) mmol/L Chloride 103 (98-107) mmol/L Carbon Dioxide 28.5 (21.0-32.0) mmol/L Anion Gap 9.0 BUN 25.0 H (7.0-18.0) mg/dL Creatinine 0.98 (0.55-1.02) mg/dL Est GFR ( Amer) >60 (>=60 mL/min/1.73m^2) Est GFR (Non-Af Amer) 57 L (>=60 mL/min/1.73m^2) BUN/Creatinine Ratio 25.5 Glucose 480 H (74-106) mg/dL Calcium 9.2 (8.5-10.1) mg/dL Urine Color Lt. yellow (YELLOW) Urine Clarity Clear (CLEAR) Urine pH 5.5 (5.0-9.0) Ur Specific [place] <=1.005 A (1.005-1.025) Urine Protein Negative (NEG/TRACE) mg/dL Urine Glucose (UA) >=1000 A (NEGATIVE) mg/dL Urine Ketones Negative (NEGATIVE) mg/dL Urine Occult Blood Negative (NEGATIVE) Urine Nitrite Negative (NEGATIVE) Urine Bilirubin Negative (NEGATIVE) Urine Urobilinogen 0.2 (0.2-1.0) EU/dL Ur Leukocyte Esterase Negative (NEGATIVE) Urine RBC 0-2 (0-2) #/HPF Urine WBC 0-2 A (NONE SEEN) #/HPF Ur Squamous Epith Cells Rare (NONE/RARE) #/LPF Urine Crystals None seen (None Seen) #/HPF Urine Bacteria None seen (NONE SEEN) #/HPF Urine Casts None seen (NONE SEEN) #/LPF Urine Mucus None seen (NONE SEEN) Ur Culture Indicated? No Acetone, Qual Negative (NEGATIVE) POC Glucose 430 H (74-106) mg/dL 06/01/24 Range/Units 02:30 WBC (4.0-11.0) 10^3/uL RBC (4.20-5.40) 10^6/uL Hgb (12.0-16.0) g/dL Hct (36.0-48.0) % MCV (81.0-99.0) fL MCH (26.7-34.0) pg MCHC (29.9-35.2) g/dL RDW (11.0-15.0) % Plt Count (150-450) 10^3/uL MPV (9.5-13.5) fL Neut % (Auto) (43.0-75.0) % Lymph % (Auto) (20.5-60.0) % [place] % (Auto) (1.7-12.0) % Eos % (Auto) (0.9-7.0) % Baso % (Auto) (0.2-2.0) % Neut # (Auto) (1.4-6.5) 10^3/uL Lymph # (Auto) (1.2-3.8) 10^3/uL [place] # (Auto) (0.3-0.8) 10^3/uL Eos # (Auto) (0.0-0.7) 10^3/uL Baso # (Auto) (0.0-0.1) 10^3/uL Abs Immat Gran (auto) (0.00-0.03) 10^3/uL Imm/Tot Granulo (auto) (0.0-0.5) % VBG pH (7.330-7.430) VBG pCO2 (40.0-52.0) mmHg Sodium (136-145) mmol/L Potassium (3.5-5.1) mmol/L Chloride (98-107) mmol/L Carbon Dioxide (21.0-32.0) mmol/L Anion Gap BUN (7.0-18.0) mg/dL Creatinine (0.55-1.02) mg/dL Est GFR ( Amer) (>=60 mL/min/1.73m^2) Est GFR (Non-Af Amer) (>=60 mL/min/1.73m^2) BUN/Creatinine Ratio Glucose (74-106) mg/dL Calcium (8.5-10.1) mg/dL Urine Color (YELLOW) Urine Clarity (CLEAR) Urine pH (5.0-9.0) Ur Specific [place] (1.005-1.025) Urine Protein (NEG/TRACE) mg/dL Urine Glucose (UA) (NEGATIVE) mg/dL Urine Ketones (NEGATIVE) mg/dL Urine Occult Blood (NEGATIVE) Urine Nitrite (NEGATIVE) Urine Bilirubin (NEGATIVE) Urine Urobilinogen (0.2-1.0) EU/dL Ur Leukocyte Esterase (NEGATIVE) Urine RBC (0-2) #/HPF Urine WBC (NONE SEEN) #/HPF Ur Squamous Epith Cells (NONE/RARE) #/LPF Urine Crystals (None Seen) #/HPF Urine Bacteria (NONE SEEN) #/HPF Urine Casts (NONE SEEN) #/LPF Urine Mucus (NONE SEEN) Ur Culture Indicated? Acetone, Qual (NEGATIVE) POC Glucose 207 H (74-106) mg/dL ECG Data Attestation: I personally reviewed and interpreted this ECG as follows: (EKG on my interpretation shows sinus rhythm with a rate of 66 and no acute change) Discharge Plan Discharge Chief Complaint: Recheck/Abnormal Lab/Rx Clinical Impression: Hyperglycemia, drug-induced Patient Disposition: Home, Self-Care Time of Disposition Decision: 02:43 Condition: Good Mode of Transportation: Private Vehicle Prescriptions / Home Meds: No Action albuterol sulfate 90 mcg/actuation HFA aerosol inhaler 2 inh inhalation Q4H PRN (Reason: shortness of breath or wheezing) Qty: 8.5 0RF albuterol sulfate 2.5 mg /3 mL (0.083 %) solution for nebulization 2.5 mg inhalation Q6H PRN (Reason: shortness of breath or wheezing) Qty: 90 0RF furosemide 20 mg tablet 20 mg PO DAILY aspirin 81 mg tablet,delayed release (DR/EC) 81 mg PO DAILY budesonide-formoterol [Symbicort] 160-4.5 mcg/actuation HFA aerosol inhaler 2 puff INHALATION BID calcium carbonate-vitamin D3 500 mg-10 mcg (400 unit) tablet 1 tab PO BID carvedilol 12.5 mg tablet 12.5 mg PO BID Jardiance 25 mg tablet 25 mg PO DAILY gabapentin 600 mg tablet 600 mg PO TID insulin aspart U-100 [Novolog FlexPen U-100 Insulin] 100 unit/mL (3 mL) insulin pen 1 sliding scale dose SUBCUT TIDWMEAL insulin glargine [Lantus Solostar U-100 Insulin] 100 unit/mL (3 mL) insulin pen 60 unit SUBCUT QPM losartan 100 mg tablet 100 mg PO DAILY pantoprazole 40 mg tablet,delayed release (DR/EC) 40 mg PO DAILY potassium chloride 10 mEq capsule, extended release 10 meq PO DAILY Xarelto 20 mg tablet 20 mg PO DAILY rosuvastatin 5 mg tablet 5 mg PO DAILY spironolactone 25 mg tablet 25 mg PO BID Spiriva Respimat 2.5 mcg/actuation mist 2 puff INHALATION DAILY paroxetine HCl 10 mg tablet 10 mg PO DAILY meclizine 25 mg tablet 25 mg PO TID PRN (Reason: dizziness) Qty: 15 0RF benzonatate 100 mg capsule 100 mg PO TID PRN (Reason: cough) Qty: 20 0RF prednisone 20 mg tablet 40 mg PO DAILY 5 Days Qty: 10 0RF guaifenesin [Mucinex] 600 mg tablet extended release 12hr 600 mg PO BID PRN (Reason: congestion) Qty: 14 0RF doxycycline hyclate 100 mg tablet 100 mg PO BID 7 Days Qty: 14 0RF Print Language: Lithuanian Instructions: Diabetic Hyperglycemia (ED) Additional Instructions: Discontinue the prednisone (steroid) Referrals: Maira Rush NP [Primary Care Provider] - 1 week
[2024-06-01] MEDS: 0.9 % SODIUM CHLORIDE 1,000 ML 1000 ML IV (00:22)
--- OUTSIDE RECORDS SUMMARY | 2024-06-01 00:24 | XMS_ITS | CCD ---
Author Organization [facility] Care Team Providers Care 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 Name Role Phone PHYSICIAN, DEFAULT Admitting Unavailable PHYSICIAN, DEFAULT Attending Unavailable AICHHOLZ, MAIRA Primary Care Unavailable PHYSICIAN, DEFAULT Admitting Unavailable PHYSICIAN, DEFAULT Attending Unavailable AICHHOLZ, MAIRA Primary Care Unavailable AICHHOLZ, BROKERAGE PURCHASE AND SALE CLERK MAIRA Primary Care Unavailable SACHA MONTANO Admitting Unavailable MARILEE .KIAN Consulting Unavailabl e SACHA MONTANO Attending Unavailable Robert Hart Consulting Unavailable HANNAH TOVAR Admitting Unavailable AICHHOLZ, BROKERAGE PURCHASE AND SALE CLERK MAIRA Primary Care Unavailable HANNAH TOVAR Attending Unavailable HANNAH TOVAR Consulting Unavailable AICHHOLZ, BROKERAGE PURCHASE AND SALE CLERK MAIRA Consulting Unavailable AICHHOLZ, BROKERAGE PURCHASE AND SALE CLERK MAIRA Primary Care Unavailable AICHHOLZ, BROKERAGE PURCHASE AND SALE CLERK MAIRA Admitting Unavailable AICHHOLZ, BROKERAGE PURCHASE AND SALE CLERK MAIRA Attending Unavailable AICHHOLZ, BROKERAGE PURCHASE AND SALE CLERK MAIRA Attending Unavailable AICHHOLZ, BROKERAGE PURCHASE AND SALE CLERK MAIRA Consulting Unavailable AICHHOLZ, BROKERAGE PURCHASE AND SALE CLERK MAIRA Primary Care Unavailable AICHHOLZ, BROKERAGE PURCHASE AND SALE CLERK MAIRA Admitting Unavailable Robert Hart Consulting Unavailable AICHHOLZ, BROKERAGE PURCHASE AND SALE CLERK MAIRA Attending Unavailable AICHHOLZ, BROKERAGE PURCHASE AND SALE CLERK MAIRA Consulting Unavailable AICHHOLZ, BROKERAGE PURCHASE AND SALE CLERK MAIRA Primary Care Unavailable AICHHOLZ, BROKERAGE PURCHASE AND SALE CLERK MAIRA Admitting Unavailable DR CORINE ANGELA V Consulting Unavailable AICHHOLZ, BROKERAGE PURCHASE AND SALE CLERK MAIRA Primary Care Unavailable AICHHOLZ, BROKERAGE PURCHASE AND SALE CLERK MAIRA Admitting Unavailable AICHHOLZ, BROKERAGE PURCHASE AND SALE CLERK MAIRA Attending Unavailable AICHHOLZ, BROKERAGE PURCHASE AND SALE CLERK MAIRA Consulting Unavailable DR TERI MAURO Admitting Unavailable AICHHOLZ, BROKERAGE PURCHASE AND SALE CLERK MAIRA Primary Care Unavailable DR TERI MAURO Attending Unavailable DR TERI MAURO Consulting Unavailable DR CORINE ANGELA V Consulting Unavailable DR BRANDON MCFARLANE Consulting Unavailable DR NEHA GATICA Consulting Unavailable YECENIA MONTERO Consulting Unavailable Aichholz STEAM CLEANING MACHINE OPERATOR, Maira Unavailable Brandon Mcfarlane MD Primary Care Provider [phone] LORENZO ACE Attending Unavailable CHAPITO DAMICO Referring Unavailable AICHHOLZ, MAIRA J Primary Care Unavailable Aichholz STEAM CLEANING MACHINE OPERATOR, Maira Unavailable Aichholz RESIDENTIAL YOUTH COUNSELOR-BROKERAGE PURCHASE AND SALE CLERK, Maira J Primary Care Provider AICHHOLZ, MAIRA J Primary Care Unavailable VIKTORIYA ADAM Attending Unavailable JEFFERYYVES Admitting Unavailable CHIKI TERRY Attending Unavailable CHIKI TERRY Referring Unavailable AICHHOLZ, MAIRA J Primary Care Unavailable YVES GIL Attending Unavailable JEFFERY, YVES Estrada Referring Unavailable AICHHOLZ, MAIRA J Primary Care Unavailable MALIK RAMOS Attending Unavailable AICHHOLZ, MAIRA J Referring Unavailable AICHHOLZ, MAIRA J Primary Care Unavailable AICHHOLZ, MAIRA Attending Unavailable AICHHOLZ, MAIRA Attending Unavailable AICHHOLZ, MAIRA Attending Unavailable AICHHOLZ, MAIRA Attending Unavailable AICHHOLZ, MAIRA Attending Unavailable AICHHOLZ, MAIRA Attending Unavailable KALINA, AHMAD F Attending Unavailable KALINA, AHMAD F Referring Unavailable AICHHOLZ, MAIRA Attending Unavailable AICHHOLZ, MAIRA Attending Unavailable AICHHOLZ, MAIRA Attending Unavailable AICHHOLZ, MAIRA Attending Unavailable Allergies Allergy Classification Reported Allergen(s) Allergy Type Date of Onset Reaction(s) Facility (2 sources) Ciprofloxacin Drug Allergy 10-11-19 12 [facility] (2 sources) metroNIDAZOLE Drug Allergy 10-11-19 12 [facility] (6 sources) Penicillins; Translations: [PENICILLINS] Drug allergy (disorder) 10-11-19 12 [facility] (2 sources) Sulfamethoxazole / Trimethoprim Drug Allergy 10-11-19 12 [facility] (20 sources) Ciprofloxacin; Translations: [CIPROFLOXACIN] Drug Allergy 05-21-20 14 GI intolerance, Other (See Comments) [facility] (20 sources) metroNIDAZOLE; Translations: [METRONIDAZOLE] Drug Allergy 05-21-20 14 GI intolerance, Other (See Comments) [facility] (20 sources) Penicillins Drug Allergy 06-29-19 24 GI intolerance [facility] (20 sources) Sulfamethoxazole Allergy to substance 06-29-19 24 GI intolerance [facility] (20 sources) Trimethoprim Drug Allergy 06-29-19 24 GI intolerance [facility] (5 sources) Sulfamethoxazole / Trimethoprim; Translations: [SULFAMETHOXAZOLE-T RIMETHOPRIM] Drug Allergy 05-21-20 14 Other (See Comments) [facility] (1 source) Penicillins Propensity to adverse reactions to drug 05-21-20 14 [facility] Current Medications Medication Drug Class(es) Dates Sig (Normalized) Sig (Original) albuterol 0.83 mg/ml inhalation solution (20 sources) beta2-Adrenergic Agonist Start: 09-16-2023 End: 06-27-2024 albuterol (2.5 MG/3ML) 0.083% nebulizer solution Indications: COPD mixed type (CMS/HCC) Take 3 mL (2.5 mg) by nebulization every 6 (six) hours if needed for wheezing or shortness of breath 360 mL 2 05/28/2024 06/27/2024 Active aspirin 81 mg delayed release oral [...] mouth in the morning. Active Continuous Glucose Radiocommunications Technician (FreeStyle Julisa 2 [place]) device (20 sources) Start: 04-29-2024 Continuous Glu cose Radiocommunications Technician (FreeStyle Julisa 2 [place]) device Indications: Type 2 diabetes mellitus with hyperglycemia, with long-term current use of insulin (CMS/HCC) USE DIRECTED 1 each 04/29/2024 Active Start: 04-27-2024 End: 04-27-2025 Continuous Glucose Radiocommunications Technician (FreeStyle Julisa 2 [place]) device Indications: Type 2 diabetes mellitus with hyperglycemia, with long-term current use of insulin ([facility]) 1 kit every 14 (fourteen) days 1 each 1 04/27/2024 04/27/2025 Active Start: 01-26-2024 End: 05-06-2024 Continuous Glucose Radiocommunications Technician (FreeStyle Julisa 2 [place]) device 01/26/2024 05/06/2024 Discontinued (Therapy completed) Start: 01-26-2024 Continuous Glu cose Radiocommunications Technician (FreeStyle Julisa 2 [place]) device 01/26/2024 Active Continuous Glucose Sensor (FreeStyle Julisa 2 Sensor) [facility] (20 sources) Start: 04-22-2024 Continuous Glu cose Sensor (FreeStyle Julisa 2 Sensor) [facility] Indications: Type 2 diabetes mellitus with hyperglycemia, with long-term current use of insulin ([facility]) 1 kit every 14 (fourteen) days 6 each 1 04/22/2024 Active Start: 02-07-2024 End: 05-06-2024 Continuous Glucose Sensor (F reeStyle Julisa 2 Sensor) [facility] 02/07/2024 05/06/2024 Discontinued (Therapy completed) Start: 02-07-2024 Continuous Glu cose Sensor (FreeStyle Julisa 2 Sensor) [facility] 02/07/2024 Active empagliflozin 25 mg oral tablet (20 sources) Sodium-Glucose Cotransporter 2 Inhibitor Start: 11-06-2022 End: 10-18-2024 take 1 tablet by mouth once daily empagliflozin (Jardiance) 25 MG Indications: Type 2 diabetes mellitus with diabetic neuropathy, with long-term current use of insulin ([facility]) Take 1 tablet (25 mg) by mouth [...] Start: 06-27-2022 take 2 tablets by mo ut at bedtime spironolactone (ALDACTONE) 25 mg tablet [...] Onset: 11-09-2020 Chronic Chronic ulcer of skin (18 sources) Pressure ulcer of sacral region, stage [...] influenza immunization] Onset: 11-27-2021 05-06-2024 Episodic Lymphadenitis (19 sources) Generalized enlarged lymph nodes; Translations: [Generalized [...] Onset: 10-02-2022 Chronic Other aftercare (4 sources) detention (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; Translations: [SNF CURRENT USE OF INSULIN] Onset: 06-11-2022 Episodic Other aftercare (2 sources) Long-term current use of insulin; Translations: [detention (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] 04-21-2024 Episodic Other bone disease and musculoskeletal deformities (1 source) Other specified disorders of bone density and structure, unspecified site; Translations: [OTH D/O BONE DEN STRUCT UNS SITE] Onset: 10-08-2022 Episodic Other connective tissue disease (1 source) Muscle weakness; Translations: [Muscle weakness (generalized)] Onset: 02-06-2024 02-06-2024 Episodic Other endocrine disorders (5 sources) Adrenal mass; Translations: [Other specified disorders [...] 02-06-2024 02-06-2024 Episodic Other non-traumatic joint disorders (10 sources) Pain of right wrist; Translations: [Pain [...] caused by tuberculosis or sexually transmitted disease) (20 sources) Pneumonia, unspecified organism; Translations: [Community acquired [...] 05-19-2024 02-25-2024 Episodic Other aftercare (1 source) detention (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 of aspirin; Translations: [SNF CURRENT USE OF ASPIRIN] Onset: 06-11-2022 Episodic Other aftercare (1 source) Other termite control servicer (current) drug therapy; Translations: [OTH PROPERTY INVESTOR CURRENT DRUG THERAPY] Onset: 06-11-2022 Episodic Other aftercare (1 source) detention (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 of anticoagulants; Translations: [SNF CURRNT USE ANTICOAGULANTS] Onset: 11-27-2021 Episodic Other [...] 3.3 g/dL Low 3.4 - 5.0 g/dL [facility] Anion gap [Moles/Vol] 9.2 mmol/L [facility] Calcium [Mass/Vol] 8.7 mg/dL 8.5 - 10. 1 mg/dL [facility] Chloride [Moles/Vol] 101 mmol/L 98 - 10 7 mmol/L [facility] CO2 [Moles/Vol] 31.7 mmol/L 21.0 - 32.0 mmol/L [facility] Creatinine [Mass/Vol] 0.87 mg/dL 0.55 - 1.02 mg/dL [facility] GFR/1.73 sq M.predicted CKD-EPI (S/P/Bld) [Vol rate/Area] >60 >=60 mL/min/1.73m 2 [facility] Glucose [Mass/Vol] 275 mg/dL High 74 - 106 mg/dL [facility] Interpretation and review of laboratory results Abnormal [facility] Phosphate [Mass/Vol] 4.3 mg/dL 2.6 - 4 .7 mg/dL [facility] Potassium [Moles/Vol] 3.9 mmol/L 3.5 - 5.1 mmol/L [facility] Sodium [Moles/Vol] 138 mmol/L 136 - 145 mmol/L [facility] TBH EGFR-NON AF UGANDAN >60 >=60 mL/min/1.73m 2 [facility] Urea nitrogen [Mass/Vol] 15 mg/dL 7.0 - 18.0 mg/dL [facility] Urea nitrogen/Creatinine [Mass ratio] 17.2 mg/mg [facility] Glucose (Bld) [Mass/Vol]Orde red By: Candy Baxter on 04-21-2024 Glucose Blood, POC 208 mg/dL [facility] Laboratory - Hematology and Cell countson 04-21-2024 HbA1c (Bld) [Mass fraction] 10.6 % [facility] No Panel InformationOrdered By: Candy Baxter on 04-21-2024 [facility] UA (CLEAN/CATCH) MICROSC OPIC IF INDICATEon 04-09-2024 BILIRUBIN URINE Negative NEGATIVE [facility] BLOOD URINE Negative NEGATIVE [facility] Clarity (U) CLEAR CLEAR [facility] Color (U) LT. YELLOW YELLOW [facility] GLUCOSE URINE UA >=1000 Abnormal NEGATIVE mg/dL [facility] Interpretation and review of laboratory results Abnormal [facility] Ketones Ql (U) Negative NEGATIVE mg/dL [facility] Leukocyte esterase Test strip Ql (U) Negative NEGATIVE [facility] NITRITE URINE Negative NEGATIVE [facility] pH (U) 6.0 [pH] 5.0 - 9.0 [facility] PROTEIN URINE Negative NEG/TRACE mg/dL [facility] SPECIFIC GRAVITY URINE 1.010 1.005 - 1.025 [facility] URINE MICROSCOPIC INDICATED NO [facility] UROBILINOGEN URINE 0.2 EU/dL 0.2 - 1.0 EU/dL [facility] URINE CULTURE, ROUTINEon Bacteria identified Cx Nom (U) Urine Culture, Routine [facility] Bacteria identified Cx Nom (U) Mixed urogenital amilcar [facility] Bacteria identified Cx Nom (U) 10,000-25,000 colony forming units per mL [facility] Bacteria identified Cx Nom (U) [facility]formed at: [facility] Bacteria identified Cx Nom (U) [address], [place] [id number] [facility] Bacteria identified Cx Nom (U) Prime Broker: Josh Moore PhD, Phone: [phone] [facility] CBC AND AUTO DIFFon 01-22-20 ABSOLUTE BASOPHIL 0.0 X10E9/L Normal 0.0-0.2 [facility] Comment on above: Performed By: #### C BCA, 61356-8, CMP, 83787-7, 51457-2 #### [facility] ([id number]) [address] [place] [address]114 ABSOLUTE NEUTROPHIL 4.2 X10E9/L Normal 1.5-6.6 [facility] Comment on above: Performed By: #### C BCA, 12227-3, CMP, 38142-0, 13895-5 #### [facility] ([id number]) [address] [place] [address] 60524 Basophils/100 WBC (Bld) 0.4 % Normal [facility] Comment on above: Performed By: #### Casey LUGO, 55102-2, CMP, , 46534-2 #### [facility] ([id number]) [address] [place] [address] 23079 Eosinophils (Bld) [#/Vol] 0.2 10*3/uL Normal 0.0-0.4 [facility] Comment on above: Performed By: #### Casey LUGO, 79991-5, CMP, , 36184-3 #### [facility] ([id number]) [address] [place] [address] 05561 Eosinophils/100 WBC (Bld) 2.6 % Normal [facility] Comment on above: Performed By: #### Casey LUGO, 55729-9, CMP, , 76715-6 #### [facility] ([id number]) [address] [place] [address] 58098 Erythrocyte distribution width (RBC) [Ratio] 13.5 % Normal 11.5-15.0 [facility] Comment on above: Performed By: #### Casey BCA, 69333-7, CMP, 05157-7, 74646-2 #### [facility] ([id number]) [address] [place] [address] 48959 Hematocrit (Bld) [Volume fraction] 48.3 % High 35-47 [facility] Comment on above: Performed By: #### C BCA, 63432-1, CMP, 11739-2, 66505-8 #### [facility] ([id number]) [address] [place] [address] 03965 Hemoglobin (Bld) [Mass/Vol] 16.0 g/dL High 11.7-15.5 [facility] Comment on above: Performed By: #### C BCA, 23728-2, CMP, 35010-7, 12470-8 #### [facility] ([id number]) [address] [place] [address] 55955 Lymphocytes (Bld) [#/Vol] 1.9 10*3/uL Normal 1.0-3.5 [facility] Comment on above: Performed By: #### Casey LUGO, 98240-9, CMP, 36799-2, 04426-1 #### [facility] ([id number]) [address] [place] [address] 79829 Lymphocytes/100 WBC (Bld) 27.1 % Normal [facility] Comment on above: Performed By: #### Casey LUGO, 94057-2, CMP, 23856-9, 48999-9 #### [facility] ([id number]) [address] [place] [address] 83008 MCH (RBC) [Entitic mass] 31.5 pg Normal 27-34 [facility] Comment on above: Performed By: #### Casey BCA, 27355-0, CMP, 90949-4, 90693-2 #### [facility] ([id number]) [address] [place] [address] 16758 MCHC (RBC) [Mass/Vol] 33.1 g/dL Normal 32-36 [facility] Comment on above: Performed By: #### Casey BCA, 29912-9, CMP, 10194-8, 43907-2 #### [facility] ([id number]) [address] [place] [address] 23242 MCV (RBC) [Entitic vol] 95 fL Normal 80-100 [facility] Comment on above: Performed By: #### Casey LUGO, 01573-8, CMP, 22884-5, 58545-3 #### [facility] ([id number]) [address] [place] [address] 61014 Monocytes (Bld) [#/Vol] 0.7 10*3/uL Normal 0-0.9 [facility] Comment on above: Performed By: #### Casey LUGO, 81539-8, CMP, 42038-7, 58696-9 #### [facility] ([id number]) [address] [place] [address] 98289 Monocytes/100 WBC (Bld) 10.0 % Normal [facility] Comment on above: Performed By: #### Casey LUGO, 58726-3, CMP, 44683-2, 36102-0 #### [facility] ([id number]) [address] [place] [address] 08627 Neutrophils/100 WBC (Bld) 59.9 % Normal [facility] Comment on above: Performed By: #### Casey LUGO, 77359-7, CMP, 92650-6, 43858-4 #### [facility] ([id number]) [address] [place] [address] 66134 Platelet mean volume (Bld) [Entitic vol] 9.0 fL Normal 7-12 [facility] Comment on above: Performed By: #### Casey LUGO, 65959-4, CMP, 28295-6, 91107-3 #### [facility] ([id number]) [address] [place] [address] 21376 Platelets (Bld) [#/Vol] 264 10*3/uL Normal 150-450 [facility] Comment on above: Performed By: #### C BCA, 67296-8, CMP, 53995-7, 78599-3 #### [facility] ([id number]) [address] [place] [address] 73596 RBC COUNT 5.07 X10E12/L Normal 3.80-5.20 [facility] Comment on above: Performed By: #### C BCA, 86083-6, CMP, 98538-8, 35672-8 #### [facility] ([id number]) [address] [place] [address] 90253 WBC (Bld) [#/Vol] 7.1 10*3/uL Normal 4.0-11.0 [facility] Comment on above: Performed By: #### C BCA, 81504-0, CMP, 08674-9, 39376-0 #### [facility] ([id number]) [address] [place] [address] 58229 COMPREHENSIVE METABOLIC [facility] 01-22-2024 Albumin [Mass/Vol] 3.1 g/dL Low 3.2-5.3 [facility] Comment on above: Performed By: #### C BCA, 88897-6, CMP, 80143-1, 44150-7 #### [facility] ([id number]) [address] [place] [address] 07695 ALP [Catalytic activity/Vol] 98 U/L Normal 39-130 [facility] Comment on above: Performed By: #### C BCA, 04864-2, CMP, 91767-9, 34861-5 #### [facility] ([id number]) [address] [place] [address] 22657 ALT [Catalytic activity/Vol] 21 U/L Normal 0-31 [facility] Comment on above: Performed By: #### C BCA, 23444-1, CMP, 72117-8, 53575-0 #### [facility] ([id number]) [address] [place] [address] 79563 Anion gap [Moles/Vol] 7 mmol/L Normal 5-15 [facility] Comment on above: Performed By: #### C BCA, 15846-7, CMP, 28684-7, 52821-3 #### [facility] ([id number]) [address] [place] [address] [place] [address] AST [Catalytic activity/Vol] 19 U/L Normal 0-41 [facility] Comment on above: Performed By: #### C BCA, 46251-4, CMP, 99311-0, 13709-8 #### [facility] ([id number]) [address] [place] [address] 78724 Bilirubin [Mass/Vol] 0.5 mg/dL Normal 0.3-1.2 [facility] Comment on above: Performed By: #### C BCA, 83245-6, CMP, 76013-7, 12007-4 #### [facility] ([id number]) [address] [place] [address] 64785 Calcium [Mass/Vol] 8.9 mg/dL Normal 8.5-10.5 [facility] Comment on above: Performed By: #### C BCA, 00616-5, CMP, 34554-5, 75486-8 #### [facility] ([id number]) [address] [place] [address] 75259 Chloride [Moles/Vol] 100 mmol/L Normal 98-109 [facility] Comment on above: Performed By: #### C BCA, 89804-1, CMP, 59491-6, 20143-7 #### [facility] ([id number]) [address] [place] [address] 29868 CO2 [Moles/Vol] 31 mmol/L Normal 22-32 [facility] Comment on above: Performed By: #### C BCA, 40939-4, CMP, 15404-1, 78053-4 #### [facility] ([id number]) [address] [place] [address] 82475 Creatinine [Mass/Vol] 0.51 mg/dL Normal 0.40-1.00 [facility] Comment on above: Result Comment: METH OD TRACEABLE TO IDMS STANDARD Performed By: #### C BCA, 58319-7, CMP, 30322-2, 15316-8 #### [facility] ([id number]) [address] [place] [address] 73826 eGFR (CKD-EPI) NON-RACE DEPENDENT >90 Normal >59 [facility] Comment on above: Result Comment: Reported eGFR is based on the CKD-EPI 2020 equation that does not use a race coefficient. Performed By: #### C BCA, 29717-3, CMP, 83117-3, 91680-9 #### [facility] ([id number]) [address] [place] [address] 12434 Glucose [Mass/Vol] 153 mg/dL High 65-99 [facility] Comment on above: Performed By: #### C BCA, 98204-9, CMP, 03548-8, 03338-4 #### [facility] ([id number]) [address] [place] [address] 61217 Potassium [Moles/Vol] 4.0 mmol/L Normal 3.5-5.0 [facility] Comment on above: Performed By: #### C BCA, 74936-8, CMP, 93273-6, 72376-9 #### [facility] ([id number]) [address] [place] [address] 09333 Protein [Mass/Vol] 6.5 g/dL Normal 6.0-8.0 [facility] Comment on above: Performed By: #### C BCA, 54140-2, CMP, 99964-7, 60765-8 #### [facility] ([id number]) [address] [place] [address] 90923 Sodium [Moles/Vol] 138 mmol/L Normal 134-146 [facility] Comment on above: Performed By: #### Casey BCA, 84133-4, CMP, 67165-8, 93629-0 #### [facility] ([id number]) [address] [place] [address] 74045 Urea nitrogen [Mass/Vol] 20 mg/dL Normal 5-27 [facility] Comment on above: Performed By: #### Casey BCA, 88709-5, CMP, , 99569-2 #### [facility] ([id number]) [address] [place] [address] 75150 MAGNESIUMon 01-22-2024 Magnesium [Mass/Vol] 2.2 mg/dL Normal 1.8-2.6 [facility] Comment on above: Performed By: #### Casey LUGO, 08360-3, CMP, , 97713-6 #### [facility] ([id number]) [address] [place] [address] 45307 CBC AND AUTO DIFFon 01-21-20 ABSOLUTE BASOPHIL 0.0 X10E9/L Normal 0.0-0.2 [facility] Comment on above: Performed By: #### Casey BCA, 44253-6, CMP, 80134-6, 24965-0 #### [facility] ([id number]) [address] [place] [address] 01876 ABSOLUTE NEUTROPHIL 4.5 X10E9/L Normal 1.5-6.6 [facility] Comment on above: Performed By: #### Casey BCA, 74342-3, CMP, 62443-1, 94182-0 #### [facility] ([id number]) [address] [place] [address] 13481 Basophils/100 WBC (Bld) 0.3 % Normal [facility] Comment on above: Performed By: #### Casey LUGO, 93235-9, CMP, 87664-4, 39615-6 #### [facility] ([id number]) [address] [place] [address] 72877 Eosinophils (Bld) [#/Vol] 0.2 10*3/uL Normal 0.0-0.4 [facility] Comment on above: Performed By: #### Casey LUGO, 10706-6, CMP, 72164-2, 93638-4 #### [facility] ([id number]) [address] [place] [address] 88105 Eosinophils/100 WBC (Bld) 2.4 % Normal [facility] Comment on above: Performed By: #### Casey LUGO, 56309-2, CMP, 25111-1, 68240-8 #### [facility] ([id number]) [address] [place] [address] 72661 Erythrocyte distribution width (RBC) [Ratio] 13.6 % Normal 11.5-15.0 [facility] Comment on above: Performed By: #### Casey LUGO, 88209-5, CMP, 86865-9, 36144-1 #### [facility] ([id number]) [address] [place] [address] 56765 Hematocrit (Bld) [Volume fraction] 48.3 % High 35-47 [facility] Comment on above: Performed By: #### Casey LUGO, 54652-6, CMP, 33098-9, 82068-3 #### [facility] ([id number]) [address] [place] [address] 74456 Hemoglobin (Bld) [Mass/Vol] 16.1 g/dL High 11.7-15.5 [facility] Comment on above: Performed By: #### Casey LUGO, 28547-6, CMP, 26537-7, 91587-3 #### [facility] ([id number]) [address] [place] [address] 72520 Lymphocytes (Bld) [#/Vol] 1.8 10*3/uL Normal 1.0-3.5 [facility] Comment on above: Performed By: #### Casey LUGO, 21999-3, CMP, 60246-9, 40462-5 #### [facility] ([id number]) [address] [place] [address] 83129 Lymphocytes/100 WBC (Bld) 24.9 % Normal [facility] Comment on above: Performed By: #### Casey LUGO, 39181-7, CMP, 84996-9, 38905-4 #### [facility] ([id number]) [address] [place] [address] 55807 MCH (RBC) [Entitic mass] 31.7 pg Normal 27-34 [facility] Comment on above: Performed By: #### Casey LUGO, 86738-0, CMP, 85274-4, 77862-0 #### [facility] ([id number]) [address] [place] [address] 00395 MCHC (RBC) [Mass/Vol] 33.4 g/dL Normal 32-36 [facility] Comment on above: Performed By: #### Casey LUGO, 40546-3, CMP, 38768-7, 91069-5 #### [facility] ([id number]) [address] [place] [address] 62535 MCV (RBC) [Entitic vol] 95 fL Normal 80-100 [facility] Comment on above: Performed By: #### Casey LUGO, 50165-7, CMP, 02759-0, 48291-4 #### [facility] ([id number]) [address] [place] [address] 97633 Monocytes (Bld) [#/Vol] 0.9 10*3/uL Normal 0-0.9 [facility] Comment on above: Performed By: #### Casey LUGO, 55393-6, CMP, 59798-5, 32944-2 #### [facility] ([id number]) [address] [place] [address] 44254 Monocytes/100 WBC (Bld) 12.0 % Normal [facility] Comment on above: Performed By: #### Casey LUGO, 57415-1, CMP, 27264-8, 82206-9 #### [facility] ([id number]) [address] [place] [address] 21459 Neutrophils/100 WBC (Bld) 60.4 % Normal [facility] Comment on above: Performed By: #### Casey LUGO, 47785-9, CMP, 73979-6, 49341-5 #### [facility] ([id number]) [address] [place] [address] 73096 Platelet mean volume (Bld) [Entitic vol] 9.6 fL Normal 7-12 [facility] Comment on above: Performed By: #### Casey LUGO, 55850-5, CMP, 21415-5, 15048-8 #### [facility] ([id number]) [address] [place] [address] 65639 Platelets (Bld) [#/Vol] 230 10*3/uL Normal 150-450 [facility] Comment on above: Performed By: #### Casey LUGO, 30172-5, CMP, 20389-4, 61103-1 #### [facility] ([id number]) [address] [place] [address] 37294 RBC COUNT 5.09 X10E12/L Normal 3.80-5.20 [facility] Comment on above: Performed By: #### C BCA, 57044-5, CMP, 21771-8, 54047-4 #### [facility] ([id number]) [address] [place] [address] 95639 WBC (Bld) [#/Vol] 7.4 10*3/uL Normal 4.0-11.0 [facility] Comment on above: Performed By: #### C BCA, 60682-9, CMP, 58225-9, 17844-6 #### [facility] ([id number]) [address] [place] [address] 56895 COMPREHENSIVE METABOLIC PANE [place] 01-21-2024 Albumin [Mass/Vol] 3.1 g/dL Low 3.2-5.3 [facility] Comment on above: Performed By: #### C BCA, 31772-7, CMP, 04233-9, 29772-8 #### [facility] ([id number]) [address] [place] [address] 28262 ALP [Catalytic activity/Vol] 96 U/L Normal 39-130 [facility] Comment on above: Performed By: #### C BCA, 44184-7, CMP, 07383-7, 44921-4 #### [facility] ([id number]) [address] [place] [address] 73782 ALT [Catalytic activity/Vol] 18 U/L Normal 0-31 [facility] Comment on above: Performed By: #### C BCA, 19573-1, CMP, 28817-5, 89153-1 #### [facility] ([id number]) [address] [place] [address] 93813 Anion gap [Moles/Vol] 7 mmol/L Normal 5-15 [facility] Comment on above: Performed By: #### C BCA, 19018-4, CMP, 01728-9, 89549-3 #### [facility] ([id number]) [address] [place] [address] 04154 AST [Catalytic activity/Vol] 16 U/L Normal 0-41 [facility] Comment on above: Performed By: #### C BCA, 09673-0, CMP, 99762-8, 02724-8 #### [facility] ([id number]) [address] [place] [address] 27213 Bilirubin [Mass/Vol] 0.5 mg/dL Normal 0.3-1.2 [facility] Comment on above: Performed By: #### C BCA, 46884-1, CMP, 19692-1, 84557-9 #### [facility] ([id number]) [address] [place] [address] 11569 Calcium [Mass/Vol] 9.1 mg/dL Normal 8.5-10.5 [facility] Comment on above: Performed By: #### C BCA, 15773-3, CMP, 31187-9, 97769-3 #### [facility] ([id number]) [address] [place] [address] 72294 Chloride [Moles/Vol] 98 mmol/L Normal 98-109 [facility] Comment on above: Performed By: #### C BCA, 47786-3, CMP, 41256-9, 95606-9 #### [facility] ([id number]) [address] [place] [address] 84540 CO2 [Moles/Vol] 33 mmol/L High 22-32 [facility] Comment on above: Performed By: #### C BCA, 80193-1, CMP, 14445-5, 52128-1 #### [facility] ([id number]) [address] [place] [address] 71203 Creatinine [Mass/Vol] 0.45 mg/dL Normal 0.40-1.00 [facility] Comment on above: Result Comment: METH OD TRACEABLE TO IDMS STANDARD Performed By: #### C BCA, 87481-9, CMP, 71857-0, 94988-7 #### [facility] ([id number]) [address] [place] [address] 13937 eGFR (CKD-EPI) NON-RACE DEPENDENT >90 Normal >59 [facility] Comment on above: Result Comment: Reported eGFR is based on the CKD-EPI 2020 equation that does not use a race coefficient. Performed By: #### C BCA, 97006-4, CMP, 53206-3, 43686-6 #### [facility] ([id number]) [address] [place] [address] 70118 Glucose [Mass/Vol] 138 mg/dL High 65-99 [facility] Comment on above: Performed By: #### C BCA, 79789-4, CMP, 66943-5, 51803-4 #### [facility] ([id number]) [address] [place] [address] 67928 Potassium [Moles/Vol] 3.8 mmol/L Normal 3.5-5.0 [facility] Comment on above: Performed By: #### C BCA, 25379-9, CMP, 31432-2, 60095-9 #### [facility] ([id number]) [address] [place] [address] 38208 Protein [Mass/Vol] 6.6 g/dL Normal 6.0-8.0 [facility] Comment on above: Performed By: #### C BCA, 40747-7, CMP, 23782-3, 85176-9 #### [facility] ([id number]) [address] [place] [address] 33793 Sodium [Moles/Vol] 138 mmol/L Normal 134-146 [facility] Comment on above: Performed By: #### C BCA, 20401-5, CMP, 23649-1, 37829-7 #### [facility] ([id number]) [address] [place] [address] 97568 Urea nitrogen [Mass/Vol] 18 mg/dL Normal 5-27 [facility] Comment on above: Performed By: #### C BRITTNEY, 47168-2, CMP, , 54635-5 #### [facility] ([id number]) [address] [place] [address] 92223 Glucose Glucometer (BldC) [M ass/Vol]on 01-21-2024 Glucose [Mass/Vol] 312 mg/dL High 65-99 [facility] Glucose [Mass/Vol] 285 mg/dL High 65-99 [facility] Glucose [Mass/Vol] 178 mg/dL High 65-99 [facility] MAGNESIUMon 01-21-2024 Magnesium [Mass/Vol] 2.2 mg/dL Normal 1.8-2.6 [facility] Comment on above: Performed By: #### C BRITTNEY, 99451-5, CMP, , 27302-2 #### [facility] ([id number]) [address] [place] [address] 71278 POTASSIUMon 01-21-2024 Potassium [Moles/Vol] 4.4 mmol/L Normal 3.5-5.0 [facility] Comment on above: Performed By: #### Casey LUGO, 69566-2, CMP, , 85817-0 #### [facility] ([id number]) [address] [place] [address] 14297 CBC AND AUTO DIFFon 01-20-20 24 ABSOLUTE BASOPHIL 0.0 X10E9/L Normal 0.0-0.2 [facility] Comment on above: Performed By: #### Casey LUGO, 34050-6, CMP, 09615-3, 45023-8 #### [facility] ([id number]) [address] [place] [address] 55349 ABSOLUTE NEUTROPHIL 6.3 X10E9/L Normal 1.5-6.6 [facility] Comment on above: Performed By: #### C BRITTNEY, 38593-3, CMP, 64888-2, 68303-0 #### [facility] ([id number]) [address] [place] [address] 15002 Basophils/100 WBC (Bld) 0.5 % Normal [facility] Comment on above: Performed By: #### C BRITTNEY, 49846-0, CMP, 38751-6, 04549-5 #### [facility] ([id number]) [address] [place] [address] 80522 Eosinophils (Bld) [#/Vol] 0.1 10*3/uL Normal 0.0-0.4 [facility] Comment on above: Performed By: #### Casey LUGO, 08310-5, CMP, 64256-1, 03963-9 #### [facility] ([id number]) [address] [place] [address] 10616 Eosinophils/100 WBC (Bld) 1.3 % Normal [facility] Comment on above: Performed By: #### Casey LUGO, 48570-6, CMP, 50807-6, 94335-2 #### [facility] ([id number]) [address] [place] [address] 43545 Erythrocyte distribution width (RBC) [Ratio] 13.6 % Normal 11.5-15.0 [facility] Comment on above: Performed By: #### Casey LUGO, 14382-9, CMP, 58991-7, 61850-6 #### [facility] ([id number]) [address] [place] [address] 23499 Hematocrit (Bld) [Volume fraction] 47.5 % High 35-47 [facility] Comment on above: Performed By: #### C BRITTNEY, 76772-6, CMP, 78061-9, 30337-5 #### [facility] ([id number]) [address] [place] [address] 72075 Hemoglobin (Bld) [Mass/Vol] 16.1 g/dL High 11.7-15.5 [facility] Comment on above: Performed By: #### Casey BCA, 67745-7, CMP, 35434-7, 11935-1 #### [facility] ([id number]) [address] [place] [address] 78981 Lymphocytes (Bld) [#/Vol] 1.8 10*3/uL Normal 1.0-3.5 [facility] Comment on above: Performed By: #### Casey LUGO, 70293-6, CMP, 34680-5, 03820-9 #### [facility] ([id number]) [address] [place] [address] 41021 Lymphocytes/100 WBC (Bld) 19.8 % Normal [facility] Comment on above: Performed By: #### Casey LUGO, 83302-9, CMP, 15105-3, 08536-2 #### [facility] ([id number]) [address] [place] [address] 72758 MCH (RBC) [Entitic mass] 32.2 pg Normal 27-34 [facility] Comment on above: Performed By: #### Casey BCA, 15298-8, CMP, 76638-8, 59406-6 #### [facility] ([id number]) [address] [place] [address] 86901 MCHC (RBC) [Mass/Vol] 33.8 g/dL Normal 32-36 [facility] Comment on above: Performed By: #### Casey BCA, 40804-6, CMP, 93257-5, 68493-0 #### [facility] ([id number]) [address] [place] [address] [place] [address] MCV (RBC) [Entitic vol] 95 fL Normal 80-100 [facility] Comment on above: Performed By: #### Casey LUGO, 69566-5, CMP, 27303-8, 32774-2 #### [facility] ([id number]) [address] [place] [address] 35665 Monocytes (Bld) [#/Vol] 0.9 10*3/uL Normal 0-0.9 [facility] Comment on above: Performed By: #### Casey LUGO, 52586-8, CMP, 26786-0, 21125-6 #### [facility] ([id number]) [address] [place] [address] 02867 Monocytes/100 WBC (Bld) 9.3 % Normal [facility] Comment on above: Performed By: #### Casey LUGO, 70576-5, CMP, 97491-2, 98330-1 #### [facility] ([id number]) [address] [place] [address] 81393 Neutrophils/100 WBC (Bld) 69.1 % Normal [facility] Comment on above: Performed By: #### Casey LUGO, 65844-8, CMP, 98898-3, 97492-0 #### [facility] ([id number]) [address] [place] [address] [place] [address] Platelet mean volume (Bld) [Entitic vol] 9.3 fL Normal 7-12 [facility] Comment on above: Performed By: #### Casey LUGO, 20214-5, CMP, 31850-4, 34364-7 #### [facility] ([id number]) [address] [place] [address] [place] [address] Platelets (Bld) [#/Vol] 213 10*3/uL Normal 150-450 [facility] Comment on above: Performed By: #### Casey LUGO, 34805-0, CMP, 19393-2, 86571-5 #### [facility] ([id number]) [address] [place] [address] 45658 RBC COUNT 4.99 X10E12/L Normal 3.80-5.20 [facility] Comment on above: Performed By: #### C BCA, 04023-6, CMP, 32991-7, 99493-5 #### [facility] ([id number]) [address] [place] [address] 69806 WBC (Bld) [#/Vol] 9.2 10*3/uL Normal 4.0-11.0 [facility] Comment on above: Performed By: #### C BCA, 71133-2, CMP, 15653-3, 08034-6 #### [facility] ([id number]) [address] [place] [address] 69190 COMPREHENSIVE METABOLIC [facility] 01-20-2024 Albumin [Mass/Vol] 3.1 g/dL Low 3.2-5.3 [facility] Comment on above: Performed By: #### C BCA, 33034-5, CMP, 03454-1, 60907-0 #### [facility] ([id number]) [address] [place] [address] 01283 ALP [Catalytic activity/Vol] 96 U/L Normal 39-130 [facility] Comment on above: Performed By: #### C BCA, 81946-5, CMP, 38018-2, 74621-5 #### [facility] ([id number]) [address] [place] [address] 76032 ALT [Catalytic activity/Vol] 19 U/L Normal 0-31 [facility] Comment on above: Performed By: #### C BCA, 72826-3, CMP, 02597-5, 46380-0 #### [facility] ([id number]) [address] [place] [address] 77266 Anion gap [Moles/Vol] 9 mmol/L Normal 5-15 [facility] Comment on above: Performed By: #### C BCA, 68151-9, CMP, 32047-5, 01326-8 #### [facility] ([id number]) [address] [place] [address] 59287 AST [Catalytic activity/Vol] 17 U/L Normal 0-41 [facility] Comment on above: Performed By: #### C BCA, 84959-0, CMP, 44907-4, 75504-1 #### [facility] ([id number]) [address] [place] [address] 53384 Bilirubin [Mass/Vol] 0.5 mg/dL Normal 0.3-1.2 [facility] Comment on above: Performed By: #### C BCA, 26589-0, CMP, 59338-9, 15574-3 #### [facility] ([id number]) [address] [place] [address] 87871 Calcium [Mass/Vol] 8.8 mg/dL Normal 8.5-10.5 [facility] Comment on above: Performed By: #### C BCA, 99783-8, CMP, 48766-9, 40997-7 #### [facility] ([id number]) [address] [place] [address] 64225 Chloride [Moles/Vol] 98 mmol/L Normal 98-109 [facility] Comment on above: Performed By: #### C BCA, 58997-4, CMP, 03802-1, 04341-1 #### [facility] ([id number]) [address] [place] [address] 55984 CO2 [Moles/Vol] 30 mmol/L Normal 22-32 [facility] Comment on above: Performed By: #### C BCA, 14537-2, CMP, 91825-5, 20971-4 #### [facility] ([id number]) [address] [place] [address] 63554 Creatinine [Mass/Vol] 0.50 mg/dL Normal 0.40-1.00 [facility] Comment on above: Result Comment: METH OD TRACEABLE TO IDMS STANDARD Performed By: #### C BCA, 61156-5, CMP, 95608-7, 58352-2 #### [facility] ([id number]) [address] [place] [address] 46359 eGFR (CKD-EPI) NON-RACE DEPENDENT >90 Normal >59 [facility] Comment on above: Result Comment: Reported eGFR is based on the CKD-EPI 2020 equation that does not use a race coefficient. Performed By: #### C BCA, 78751-3, CMP, 07940-0, 50893-2 #### [facility] ([id number]) [address] [place] [address] 39706 Glucose [Mass/Vol] 282 mg/dL High 65-99 [facility] Comment on above: Performed By: #### C BCA, 80043-0, CMP, 18567-4, 37512-5 #### [facility] ([id number]) [address] [place] [address] 10242 Potassium [Moles/Vol] 4.2 mmol/L Normal 3.5-5.0 [facility] Comment on above: Performed By: #### C BCA, 30197-4, CMP, 90721-9, 94488-2 #### [facility] ([id number]) [address] [place] [address] 99446 Protein [Mass/Vol] 6.2 g/dL Normal 6.0-8.0 [facility] Comment on above: Performed By: #### C BCA, 60486-0, CMP, 49647-8, 17762-3 #### [facility] ([id number]) [address] [place] [address] 42774 Sodium [Moles/Vol] 137 mmol/L Normal 134-146 [facility] Comment on above: Performed By: #### C BRITTNEY, 71570-3, CMP, 92863-5, 60751-4 #### [facility] ([id number]) [address] [place] [address] 28964 Urea nitrogen [Mass/Vol] 18 mg/dL Normal 5-27 [facility] Comment on above: Performed By: #### Casey LUGO, 95606-7, CMP, , 24876-6 #### [facility] ([id number]) [address] [place] [address] 32943 Glucose Glucometer (BldC) [M ass/Vol]on 01-20-2024 Glucose [Mass/Vol] 277 mg/dL High 65-99 [facility] Glucose [Mass/Vol] 174 mg/dL High 65-99 [facility] Glucose [Mass/Vol] 324 mg/dL High 65-99 [facility] Glucose [Mass/Vol] 172 mg/dL High 65-99 [facility] MAGNESIUMon 01-20-2024 Magnesium [Mass/Vol] 2.0 mg/dL Normal 1.8-2.6 [facility] Comment on above: Performed By: #### Casey LUGO, 50512-2, CMP, 14134-5, 38857-5 #### [facility] ([id number]) [address] [place] [address] 49765 CBC AND AUTO DIFFon 01-19-20 24 ABSOLUTE BASOPHIL 0.0 X10E9/L Normal 0.0-0.2 [facility] Comment on above: Performed By: #### Casey LUGO, 79045-2, CMP, 81226-1, 79824-2 #### [facility] ([id number]) [address] [place] [address] 29525 ABSOLUTE NEUTROPHIL 7.7 X10E9/L High 1.5-6.6 [facility] Comment on above: Performed By: #### C BRITTNEY, 60358-1, CMP, 37068-3, 57530-4 #### [facility] ([id number]) [address] [place] [address] 41105 Basophils/100 WBC (Bld) 0.4 % Normal [facility] Comment on above: Performed By: #### C BRITTNEY, 33441-0, CMP, 42974-9, 11368-1 #### [facility] ([id number]) [address] [place] [address] 43221 Eosinophils (Bld) [#/Vol] 0.2 10*3/uL Normal 0.0-0.4 [facility] Comment on above: Performed By: #### Casey LUGO, 30629-7, CMP, 10142-9, 32095-1 #### [facility] ([id number]) [address] [place] [address] 33189 Eosinophils/100 WBC (Bld) 1.7 % Normal [facility] Comment on above: Performed By: #### C BRITTNEY, 24080-6, CMP, 75176-7, 53578-7 #### [facility] ([id number]) [address] [place] [address] 24554 Erythrocyte distribution width (RBC) [Ratio] 13.7 % Normal 11.5-15.0 [facility] Comment on above: Performed By: #### C BCA, 51368-6, CMP, 70927-3, 92279-6 #### [facility] ([id number]) [address] [place] [address] 28278 Hematocrit (Bld) [Volume fraction] 48.3 % High 35-47 [facility] Comment on above: Performed By: #### C BCA, 64452-1, CMP, 79714-5, 55798-4 #### [facility] ([id number]) [address] [place] [address] 80531 Hemoglobin (Bld) [Mass/Vol] 15.9 g/dL High 11.7-15.5 [facility] Comment on above: Performed By: #### Casey BCA, 71469-6, CMP, 28342-3, 49589-5 #### [facility] ([id number]) [address] [place] [address] 80925 Lymphocytes (Bld) [#/Vol] 2.2 10*3/uL Normal 1.0-3.5 [facility] Comment on above: Performed By: #### Casey LUGO, 02584-9, CMP, 73687-5, 41157-0 #### [facility] ([id number]) [address] [place] [address] 00903 Lymphocytes/100 WBC (Bld) 20.2 % Normal [facility] Comment on above: Performed By: #### Casey BCA, 25835-5, CMP, 68480-4, 33588-1 #### [facility] ([id number]) [address] [place] [address] 82316 MCH (RBC) [Entitic mass] 31.1 pg Normal 27-34 [facility] Comment on above: Performed By: #### Casey BCA, 74824-4, CMP, 99956-4, 64420-3 #### [facility] ([id number]) [address] [place] [address] 98125 MCHC (RBC) [Mass/Vol] 32.9 g/dL Normal 32-36 [facility] Comment on above: Performed By: #### Casey BCA, 30378-6, CMP, 85411-9, 01091-0 #### [facility] ([id number]) [address] [place] [address] [place] [address] MCV (RBC) [Entitic vol] 95 fL Normal 80-100 [facility] Comment on above: Performed By: #### Casey LUGO, 87426-0, CMP, 16440-5, 68379-6 #### [facility] ([id number]) [address] [place] [address] 86788 Monocytes (Bld) [#/Vol] 0.9 10*3/uL Normal 0-0.9 [facility] Comment on above: Performed By: #### Casey LUGO, 71514-6, CMP, 13761-9, 43285-4 #### [facility] ([id number]) [address] [place] [address]69 Monocytes/100 WBC (Bld) 8.1 % Normal [facility] Comment on above: Performed By: #### Casey LUGO, 13158-2, CMP, 85578-1, 61600-1 #### [facility] ([id number]) [address] [place] [address] Neutrophils/100 WBC (Bld) 69.6 % Normal [facility] Comment on above: Performed By: #### Casey LUGO, 97281-8, CMP, 62716-9, 29195-6 #### [facility] ([id number]) [address] [place] [address] [place] [address] Platelet mean volume (Bld) [Entitic vol] 9.9 fL Normal 7-12 [facility] Comment on above: Performed By: #### Casey LUGO, 39164-7, CMP, 31567-1, 09535-1 #### [facility] ([id number]) [address] [place] [address] [place] [address] Platelets (Bld) [#/Vol] 219 10*3/uL Normal 150-450 [facility] Comment on above: Performed By: #### Casey LUGO, 35887-5, CMP, 70006-2, 06097-1 #### [facility] ([id number]) [address] [place] [address] RBC COUNT 5.11 X10E12/L Normal 3.80-5.20 [facility] Comment on above: Performed By: #### C BCA, 72103-4, CMP, 84774-0, 96629-7 #### [facility] ([id number]) [address] [place] [address]11 WBC (Bld) [#/Vol] 11.0 10*3/uL Normal 4.0-11.0 [facility] Comment on above: Performed By: #### C BCA, 44444-4, CMP, 15169-8, 03064-9 #### [facility] ([id number]) [address] [place] [address] COMPREHENSIVE METABOLIC [facility] 01-19-2024 Albumin [Mass/Vol] 2.9 g/dL Low 3.2-5.3 [facility] Comment on above: Performed By: #### C BCA, 82763-9, CMP, 85462-8, 61176-5 #### [facility] ([id number]) [address] [place] [address] ALP [Catalytic activity/Vol] 112 U/L Normal 39-130 [facility] Comment on above: Performed By: #### C BCA, 63010-8, CMP, 24125-4, 17699-5 #### [facility] ([id number]) [address] [place] [address] 89036 ALT [Catalytic activity/Vol] 21 U/L Normal 0-31 [facility] Comment on above: Performed By: #### C BCA, 52925-9, CMP, 14724-7, 64043-6 #### [facility] ([id number]) [address] [place] [address] 74512 Anion gap [Moles/Vol] 9 mmol/L Normal 5-15 [facility] Comment on above: Performed By: #### C BCA, 76063-6, CMP, 79287-9, 85648-3 #### [facility] ([id number]) [address] [place] [address] 33275 AST [Catalytic activity/Vol] 16 U/L Normal 0-41 [facility] Comment on above: Performed By: #### C BCA, 69685-5, CMP, 40427-1, 86001-0 #### [facility] ([id number]) [address] [place] [address] 34854 Bilirubin [Mass/Vol] 0.5 mg/dL Normal 0.3-1.2 [facility] Comment on above: Performed By: #### C BCA, 68283-4, CMP, 07957-2, 86437-8 #### [facility] ([id number]) [address] [place] [address] 34261 Calcium [Mass/Vol] 8.9 mg/dL Normal 8.5-10.5 [facility] Comment on above: Performed By: #### C BCA, 41023-7, CMP, 16714-6, 28867-4 #### [facility] ([id number]) [address] [place] [address] 54557 Chloride [Moles/Vol] 98 mmol/L Normal 98-109 [facility] Comment on above: Performed By: #### C BCA, 47404-6, CMP, 26408-8, 31663-1 #### [facility] ([id number]) [address] [place] [address] 11154 CO2 [Moles/Vol] 29 mmol/L Normal 22-32 [facility] Comment on above: Performed By: #### C BCA, 24573-4, CMP, 31537-8, 32913-8 #### [facility] ([id number]) [address] [place] [address] 98384 Creatinine [Mass/Vol] 0.46 mg/dL Normal 0.40-1.00 [facility] Comment on above: Result Comment: METH OD TRACEABLE TO IDMS STANDARD Performed By: #### C BCA, 84782-3, CMP, 24660-8, 23333-5 #### [facility] ([id number]) [address] [place] [address] 63582 eGFR (CKD-EPI) NON-RACE DEPENDENT >90 Normal >59 [facility] Comment on above: Result Comment: Reported eGFR is based on the CKD-EPI 2020 equation that does not use a race coefficient. Performed By: #### C BCA, 96696-1, CMP, 08830-4, 79395-7 #### [facility] ([id number]) [address] [place] [address] 48714 Glucose [Mass/Vol] 168 mg/dL High 65-99 [facility] Comment on above: Performed By: #### C BCA, 63574-1, CMP, 77639-0, 17354-7 #### [facility] ([id number]) [address] [place] [address] 77155 Potassium [Moles/Vol] 3.7 mmol/L Normal 3.5-5.0 [facility] Comment on above: Performed By: #### C BCA, 92220-7, CMP, 88050-9, 78601-2 #### [facility] ([id number]) [address] [place] [address] 56725 Protein [Mass/Vol] 6.2 g/dL Normal 6.0-8.0 [facility] Comment on above: Performed By: #### C BCA, 94306-3, CMP, 37785-2, 04185-2 #### [facility] ([id number]) [address] [place] [address] 73576 Sodium [Moles/Vol] 136 mmol/L Normal 134-146 [facility] Comment on above: Performed By: #### C BRITTNEY, 54548-5, CMP, , 05853-2 #### [facility] ([id number]) [address] [place] [address] 90777 Urea nitrogen [Mass/Vol] 19 mg/dL Normal 5-27 [facility] Comment on above: Performed By: #### C BRITTNEY, 93851-2, [facility], , 99477-2 #### [facility] ([id number]) [address] [place] [address] 17171 Glucose Glucometer (BldC) [M ass/Vol]on 01-19-2024 Glucose [Mass/Vol] 241 mg/dL High 65-99 [facility] Glucose [Mass/Vol] 203 mg/dL High 65-99 [facility] Glucose [Mass/Vol] 237 mg/dL High 65-99 [facility] MAGNESIUMon 01-19-2024 Magnesium [Mass/Vol] 2.0 mg/dL Normal 1.8-2.6 [facility] Comment on above: Performed By: #### C BRITTNEY, 01467-0, CMP, , 89086-6 #### [facility] ([id number]) [address] [place] [address] 80915 POTASSIUMon 01-19-2024 Potassium [Moles/Vol] 4.4 mmol/L Normal 3.5-5.0 [facility] Comment on above: Performed By: #### C BRITTNEY, 31027-6, CMP, , 42104-4 #### [facility] ([id number]) [address] [place] [address] 84132 URINALYSISon 01-19-2024 Bilirubin Ql (U) Negative Normal NEG [facility] Comment on above: Performed By: #### C BCA, 09862-7, CMP, 60387-2, 27654-8 #### [facility] ([id number]) [address] [place] [address] 74350 BLOOD/HGB SMALL Abnormal NEG [facility] Comment on above: Performed By: #### C BCA, 50590-3, CMP, 85594-6, 44706-2 #### [facility] ([id number]) [address] [place] [address] 06498 Color (U) YELLOW Normal YELLOW [facility] Comment on above: Performed By: #### C BCA, 84501-4, CMP, 42336-1, 76462-1 #### [facility] ([id number]) [address] [place] [address] [place] [address] Glucose Ql (U) >1000 Abnormal NEG [facility] Comment on above: Performed By: #### C BCA, 74661-8, CMP, 92175-6, 90673-9 #### [facility] ([id number]) [address] [place] [address] 45848 Ketones Ql (U) Negative Normal NEG [facility] Comment on above: Performed By: #### Casey BCA, 85325-6, CMP, 48777-7, 21297-7 #### [facility] ([id number]) [address] [place] [address] 73169 Leukocyte esterase Test strip Ql (U) MODERATE Abnormal NEG [facility] Comment on above: Result Comment: HIGH CONCENTRATIONS OF GLUCOSE MAY DECREASE THE REACTIVITY OF THE DIPSTICK LEUKOCYTE TEST PAD. Performed By: #### C BCA, 59120-6, CMP, 52456-8, 17211-3 #### [facility] ([id number]) [address] [place] [address], [place] [address] Nitrite Ql (U) Negative Normal NEG [facility] Comment on above: Performed By: #### C BCA, 45481-7, CMP, 98097-9, 62216-0 #### [facility] ([id number]) [address] [place] [address] 63264 pH (U) 6.5 [pH] Normal 5.0-8.5 [facility] Comment on above: Performed By: #### C BCA, 70072-7, CMP, 88263-0, 53877-6 #### [facility] ([id number]) [address] [place] [address] 24352 Protein Ql (U) Negative Normal NEG [facility] Comment on above: Performed By: #### Casey LUGO, 92260-6, CMP, 65352-3, 75100-1 #### [facility] ([id number]) [address] [place] [address] 22635 R.B.CELLS 10 /hpf High 0-5 [facility] Comment on above: Performed By: #### Casey BCA, 49400-8, CMP, 98322-8, 51598-0 #### [facility] ([id number]) [address] [place] [address] 24433 Specific gravity (U) [Rel density] 1.010 Normal 1.003-1.035 [facility] Comment on above: Performed By: #### C BCA, 71449-6, CMP, 69584-5, 98481-5 #### [facility] ([id number]) [address] [place] [address] 58175 SQUAMOUS EPITHELIUM 4 /hpf Normal 0-5 [facility] Comment on above: Performed By: #### Casey BCA, 27946-5, CMP, 29091-9, 03097-8 #### [facility] ([id number]) [address] [place] [address] [place] [address] TRANSITIONAL EPITH 1 /hpf High 0 [facility] Comment on above: Performed By: #### C BRITTNEY, 32886-8, CMP, 23408-6, 55445-7 #### [facility] ([id number]) [address] [place] [address] 74417 TURBIDITY CLOUDY Abnormal CLEAR [facility] Comment on above: Performed By: #### C BRITTNEY, 56382-9, CMP, 31804-4, 45445-7 #### [facility] ([id number]) [address] [place] [address] 98909 Urobilinogen Qn (U) 0.2 {Beau'U}/dL Normal <1.1 [facility] Comment on above: Performed By: #### Casey LUGO, 22517-0, [facility], 30394-5, 48425-3 #### [facility] ([id number]) [address] [place] [address] [place] [address] W.B.CELLS >100 High 0-5 [facility] Comment on above: Performed By: #### C BRITTNEY, 21480-5, CMP, 30901-1, 89357-2 #### [facility] ([id number]) [address] [place] [address] 76586 URINE CULTUREon 01-19-2024 Bacteria identified Cx Nom (U) CULTURE RESULTS 50-100,000 ORGANISMS/ML NORMAL UROGENITAL AMILCAR Normal [facility] Comment on above: Performed By: #### Casey LUGO, 51678-5, CMP, 90072-4, 95122-6 #### [facility] ([id number]) [address] [place] [address] 32688 CBC AND AUTO DIFFon 01-18-20 24 ABSOLUTE BASOPHIL 0.0 X10E9/L Normal 0.0-0.2 [facility] Comment on above: Performed By: #### C BCA, 60921-5, CMP, 82363-8, 95124-1 #### [facility] ([id number]) [address] [place] [address] 30066 ABSOLUTE NEUTROPHIL 8.3 X10E9/L High 1.5-6.6 [facility] Comment on above: Performed By: #### Casey LUGO, 99038-1, CMP, 25879-4, 96168-0 #### [facility] ([id number]) [address] [place] [address] 44782 Basophils/100 WBC (Bld) 0.3 % Normal [facility] Comment on above: Performed By: #### Casey LUGO, 78026-1, CMP, 58572-1, 69234-0 #### [facility] ([id number]) [address] [place] [address] 09034 Eosinophils (Bld) [#/Vol] 0.3 10*3/uL Normal 0.0-0.4 [facility] Comment on above: Performed By: #### Casey LUGO, 55510-2, CMP, 75243-0, 86592-1 #### [facility] ([id number]) [address] [place] [address] 89578 Eosinophils/100 WBC (Bld) 2.1 % Normal [facility] Comment on above: Performed By: #### Casey BCA, 71491-8, CMP, 20041-2, 25077-0 #### [facility] ([id number]) [address] [place] [address] 74084 Erythrocyte distribution width (RBC) [Ratio] 13.6 % Normal 11.5-15.0 [facility] Comment on above: Performed By: #### Casey LUGO, 78718-1, CMP, 42660-0, 65286-6 #### [facility] ([id number]) [address] [place] [address] 60715 Hematocrit (Bld) [Volume fraction] 54.5 % High 35-47 [facility] Comment on above: Performed By: #### C BCA, 01294-7, CMP, 60800-5, 72294-4 #### [facility] ([id number]) [address] [place] [address] 61625 Hemoglobin (Bld) [Mass/Vol] 18.1 g/dL High 11.7-15.5 [facility] Comment on above: Performed By: #### Casey LUGO, 17314-1, CMP, 31447-6, 74576-8 #### [facility] ([id number]) [address] [place] [address] 44474 Lymphocytes (Bld) [#/Vol] 2.4 10*3/uL Normal 1.0-3.5 [facility] Comment on above: Performed By: #### Casey LUGO, 75237-0, CMP, 85066-1, 62637-7 #### [facility] ([id number]) [address] [place] [address] 47882 Lymphocytes/100 WBC (Bld) 20.1 % Normal [facility] Comment on above: Performed By: #### Casey LUGO, 25680-6, CMP, 54325-2, 85821-0 #### [facility] ([id number]) [address] [place] [address] 36297 MCH (RBC) [Entitic mass] 31.3 pg Normal 27-34 [facility] Comment on above: Performed By: #### Casey LUGO, 73973-2, CMP, 12778-5, 26959-6 #### [facility] ([id number]) [address] [place] [address] 98263 MCHC (RBC) [Mass/Vol] 33.2 g/dL Normal 32-36 [facility] Comment on above: Performed By: #### Casey LUGO, 21300-1, CMP, 42466-9, 98998-4 #### [facility] ([id number]) [address] [place] [address] 37892 MCV (RBC) [Entitic vol] 94 fL Normal 80-100 [facility] Comment on above: Performed By: #### Casey LUGO, 77348-5, CMP, 33053-9, 33757-8 #### [facility] ([id number]) [address] [place] [address] 91614 Monocytes (Bld) [#/Vol] 0.8 10*3/uL Normal 0-0.9 [facility] Comment on above: Performed By: #### Casey LUGO, 84666-2, CMP, 06005-1, 27574-4 #### [facility] ([id number]) [address] [place] [address] 00373 Monocytes/100 WBC (Bld) 7.1 % Normal [facility] Comment on above: Performed By: #### Casey LUGO, 26467-3, CMP, 41200-5, 19663-8 #### [facility] ([id number]) [address] [place] [address] 85972 Neutrophils/100 WBC (Bld) 70.4 % Normal [facility] Comment on above: Performed By: #### Casey LUGO, 88394-9, CMP, 19545-7, 12559-6 #### [facility] ([id number]) [address] [place] [address] 45015 Platelet mean volume (Bld) [Entitic vol] 10.1 fL Normal 7-12 [facility] Comment on above: Performed By: #### Casey LUGO, 52669-5, CMP, 16856-1, 21486-3 #### [facility] ([id number]) [address] [place] [address] [place] [address] Platelets (Bld) [#/Vol] 279 10*3/uL Normal 150-450 [facility] Comment on above: Performed By: #### Casey LUGO, 82335-9, CMP, 37689-1, 32123-0 #### [facility] ([id number]) [address] [place] [address] 94747 RBC COUNT 5.78 X10E12/L High 3.80-5.20 [facility] Comment on above: Performed By: #### Casey LUGO, 83077-9, CMP, 04052-4, 45091-7 #### [facility] ([id number]) [address] [place] [address] 33693 WBC (Bld) [#/Vol] 11.8 10*3/uL High 4.0-11.0 [facility] Comment on above: Performed By: #### Casey LUGO, 26660-7, CMP, , 91328-6 #### [facility] ([id number]) [address] [place] [address] 93332 COMPREHENSIVE METABOLIC PANE Blayne 01-18-2024 Albumin [Mass/Vol] 3.5 g/dL Normal 3.2-5.3 [facility] Comment on above: Performed By: #### Casey LUGO, 75290-4, CMP, 19197-9, 03398-9 #### [facility] ([id number]) [address] [place] [address] 98819 ALP [Catalytic activity/Vol] 115 U/L Normal 39-130 [facility] Comment on above: Performed By: #### Casey LUGO, 23926-6, CMP, 60286-5, 53035-8 #### [facility] ([id number]) [address] [place] [address] 44619 ALT [Catalytic activity/Vol] 25 U/L Normal 0-31 [facility] Comment on above: Performed By: #### C BCA, 51789-1, CMP, 38514-3, 79208-2 #### [facility] ([id number]) [address] [place] [address] 51109 Anion gap [Moles/Vol] 8 mmol/L Normal 5-15 [facility] Comment on above: Performed By: #### C BCA, 67372-7, CMP, 01972-2, 07759-8 #### [facility] ([id number]) [address] [place] [address] 29554 AST [Catalytic activity/Vol] 23 U/L Normal 0-41 [facility] Comment on above: Performed By: #### C BCA, 50256-2, CMP, 75567-5, 93800-6 #### [facility] ([id number]) [address] [place] [address] 43365 Bilirubin [Mass/Vol] 0.7 mg/dL Normal 0.3-1.2 [facility] Comment on above: Performed By: #### C BCA, 36045-3, CMP, 08785-5, 05957-3 #### [facility] ([id number]) [address] [place] [address] 84760 Calcium [Mass/Vol] 9.2 mg/dL Normal 8.5-10.5 [facility] Comment on above: Performed By: #### C BCA, 38285-0, CMP, 86156-0, 29273-0 #### [facility] ([id number]) [address] [place] [address] 98782 Chloride [Moles/Vol] 98 mmol/L Normal 98-109 [facility] Comment on above: Performed By: #### C BCA, 87842-2, CMP, 80000-5, 01570-1 #### [facility] ([id number]) [address] [place] [address] CO2 [Moles/Vol] 32 mmol/L Normal 22-32 [facility] Comment on above: Performed By: #### C BRITTNEY, 79340-9, CMP, 79818-7, 25472-1 #### [facility] ([id number]) [address] [place] [address] 26861 Creatinine [Mass/Vol] 0.56 mg/dL Normal 0.40-1.00 [facility] Comment on above: Result Comment: METH OD TRACEABLE TO IDMS STANDARD Performed By: #### C BRITTNEY, 83005-1, CMP, 91334-9, 45466-6 #### [facility] ([id number]) [address] [place] [address] 39679 eGFR (CKD-EPI) NON-RACE DEPENDENT >90 Normal >59 [facility] Comment on above: Result Comment: Reported eGFR is based on the CKD-EPI 2020 equation that does not use a race coefficient. Performed By: #### C BRITTNEY, 85679-8, CMP, 86650-3, 74021-2 #### [facility] ([id number]) [address] [place] [address] 08319 Glucose [Mass/Vol] 113 mg/dL High 65-99 [facility] Comment on above: Performed By: #### C BRITTNEY, 76226-0, CMP, , 20406-9 #### [facility] ([id number]) [address] [place] [address] 50197 Potassium [Moles/Vol] 3.4 mmol/L Low 3.5-5.0 [facility] Comment on above: Performed By: #### C BCA, 02090-0, CMP, 22546-7, 54684-1 #### [facility] ([id number]) [address] [place] [address] 66226 Protein [Mass/Vol] 7.2 g/dL Normal 6.0-8.0 [facility] Comment on above: Performed By: #### C BRITTNEY, 77200-8, CMP, 40745-9, 31621-3 #### [facility] ([id number]) [address] [place] [address] 97111 Sodium [Moles/Vol] 138 mmol/L Normal 134-146 [facility] Comment on above: Performed By: #### Casey LUGO, 50886-4, CMP, , 64928-2 #### [facility] ([id number]) [address] [place] [address] 97226 Urea nitrogen [Mass/Vol] 14 mg/dL Normal 5-27 [facility] Comment on above: Performed By: #### Casey LUGO, 20719-5, [facility], , 13288-7 #### [facility] ([id number]) [address] [place] [address] 01953 Glucose Glucometer (BldC) [M ass/Vol]on 01-18-2024 Glucose [Mass/Vol] 256 mg/dL High 65-99 [facility] Glucose [Mass/Vol] 235 mg/dL High 65-99 [facility] Glucose [Mass/Vol] 302 mg/dL High 65-99 [facility] Glucose [Mass/Vol] 108 mg/dL High 65-99 [facility] MAGNESIUMon 01-18-2024 Magnesium [Mass/Vol] 2.1 mg/dL Normal 1.8-2.6 [facility] Comment on above: Performed By: #### C BRITTNEY, 19086-0, CMP, 06885-5, 23421-2 #### [facility] ([id number]) [address] [place] [address] 54980 POTASSIUMon 01-18-2024 Potassium [Moles/Vol] 4.7 mmol/L Normal 3.5-5.0 [facility] Comment on above: Performed By: #### C BCA, 64807-1, CMP, 49447-8, 58702-9 #### [facility] ([id number]) [address] [place] [address] 91225 CBC AND AUTO DIFFon 01-17-20 24 ABSOLUTE BASOPHIL 0.0 X10E9/L Normal 0.0-0.2 [facility] Comment on above: Performed By: #### Casey LUGO, 00565-4, CMP, 81728-3, 70382-9 #### [facility] ([id number]) [address] [place] [address] 92167 ABSOLUTE NEUTROPHIL 6.1 X10E9/L Normal 1.5-6.6 [facility] Comment on above: Performed By: #### Casey LUGO, 68720-7, CMP, 43892-7, 93741-3 #### [facility] ([id number]) [address] [place] [address] 48963 Basophils/100 WBC (Bld) 0.4 % Normal [facility] Comment on above: Performed By: #### Casey LUGO, 02431-4, CMP, 51604-1, 71584-9 #### [facility] ([id number]) [address] [place] [address] 75605 Eosinophils (Bld) [#/Vol] 0.3 10*3/uL Normal 0.0-0.4 [facility] Comment on above: Performed By: #### Casey BCA, 41355-8, CMP, 78827-1, 95273-4 #### [facility] ([id number]) [address] [place] [address] 31835 Eosinophils/100 WBC (Bld) 2.7 % Normal [facility] Comment on above: Performed By: #### Casey BCA, 31953-9, CMP, 41268-1, 44603-2 #### [facility] ([id number]) [address] [place] [address] 38638 Erythrocyte distribution width (RBC) [Ratio] 13.6 % Normal 11.5-15.0 [facility] Comment on above: Performed By: #### Casey LUGO, 79361-4, CMP, 97499-3, 96593-6 #### [facility] ([id number]) [address] [place] [address] 24635 Hematocrit (Bld) [Volume fraction] 50.3 % High 35-47 [facility] Comment on above: Performed By: #### Casey LUGO, 73161-7, CMP, 80193-0, 51788-6 #### [facility] ([id number]) [address] [place] [address] 39778 Hemoglobin (Bld) [Mass/Vol] 16.9 g/dL High 11.7-15.5 [facility] Comment on above: Performed By: #### Casey LUGO, 68884-9, CMP, 84671-5, 74104-9 #### [facility] ([id number]) [address] [place] [address] 61388 Lymphocytes (Bld) [#/Vol] 2.5 10*3/uL Normal 1.0-3.5 [facility] Comment on above: Performed By: #### Casey LUGO, 90574-9, CMP, 63589-8, 75518-6 #### [facility] ([id number]) [address] [place] [address] 55817 Lymphocytes/100 WBC (Bld) 25.5 % Normal [facility] Comment on above: Performed By: #### Casey LUGO, 36869-8, CMP, 86272-4, 51112-3 #### [facility] ([id number]) [address] [place] [address] 01186 MCH (RBC) [Entitic mass] 31.5 pg Normal 27-34 [facility] Comment on above: Performed By: #### C BCA, 42529-7, CMP, 19037-4, 65663-5 #### [facility] ([id number]) [address] [place] [address] 79851 MCHC (RBC) [Mass/Vol] 33.7 g/dL Normal 32-36 [facility] Comment on above: Performed By: #### Csaey BCA, 77801-5, CMP, 04253-3, 70162-7 #### [facility] ([id number]) [address] [place] [address] 79833 MCV (RBC) [Entitic vol] 94 fL Normal 80-100 [facility] Comment on above: Performed By: #### Casey LUGO, 78490-4, CMP, 59852-9, 10366-4 #### [facility] ([id number]) [address] [place] [address] 46782 Monocytes (Bld) [#/Vol] 0.9 10*3/uL Normal 0-0.9 [facility] Comment on above: Performed By: #### Casey BCA, 63676-0, CMP, 73035-7, 17294-8 #### [facility] ([id number]) [address] [place] [address] 57346 Monocytes/100 WBC (Bld) 8.8 % Normal [facility] Comment on above: Performed By: #### Caesy BCA, 42493-7, CMP, 12176-8, 29036-1 #### [facility] ([id number]) [address] [place] [address] 36180 Neutrophils/100 WBC (Bld) 62.6 % Normal [facility] Comment on above: Performed By: #### Casey BCA, 53016-2, CMP, 74376-8, 77561-6 #### [facility] ([id number]) [address] [place] [address] 13908 Platelet mean volume (Bld) [Entitic vol] 9.3 fL Normal 7-12 [facility] Comment on above: Performed By: #### Casey LUGO, 55810-3, CMP, 05578-7, 89688-5 #### [facility] ([id number]) [address] [place] [address] 86815 Platelets (Bld) [#/Vol] 243 10*3/uL Normal 150-450 [facility] Comment on above: Performed By: #### Casey LUGO, 67574-7, CMP, 29544-9, 54397-5 #### [facility] [facility] ([id number]) [address] [place] [address] 09251 RBC COUNT 5.38 X10E12/L High 3.80-5.20 [facility] Comment on above: Performed By: #### Casey LUGO, 14723-2, CMP, 77851-7, 87606-4 #### [facility] ([id number]) [address] [place] [address] 24269 WBC (Bld) [#/Vol] 9.8 10*3/uL Normal 4.0-11.0 [facility] Comment on above: Performed By: #### Casey LUGO, 71747-9, CMP, 69593-8, 18493-9 #### [facility] ([id number]) [address] [place] [address] 20109 COMPREHENSIVE METABOLIC PANE Blayne 01-17-2024 Albumin [Mass/Vol] 3.1 g/dL Low 3.2-5.3 [facility] Comment on above: Performed By: #### Casey BCA, 40617-7, CMP, 21719-5, 85020-7 #### [facility] ([id number]) [address] [place] [address] 51474 ALP [Catalytic activity/Vol] 101 U/L Normal 39-130 [facility] Comment on above: Performed By: #### C BCA, 02390-2, CMP, 10152-2, 48308-1 #### [facility] ([id number]) [address] [place] [address] 22497 ALT [Catalytic activity/Vol] 17 U/L Normal 0-31 [facility] Comment on above: Performed By: #### C BCA, 03156-3, CMP, 81094-2, 72448-2 #### [facility] ([id number]) [address] [place] [address] 29146 Anion gap [Moles/Vol] 8 mmol/L Normal 5-15 [facility] Comment on above: Performed By: #### C BCA, 15380-4, CMP, 64323-8, 88148-6 #### [facility] ([id number]) [address] [place] [address] 99195 AST [Catalytic activity/Vol] 18 U/L Normal 0-41 [facility] Comment on above: Performed By: #### C BCA, 35462-3, CMP, 82177-7, 20633-6 #### [facility] ([id number]) [address] [place] [address] 91475 Bilirubin [Mass/Vol] 1.0 mg/dL Normal 0.3-1.2 [facility] Comment on above: Performed By: #### C BCA, 10000-7, CMP, 06555-1, 50251-8 #### [facility] ([id number]) [address] [place] [address] 65310 Calcium [Mass/Vol] 8.4 mg/dL Low 8.5-10.5 [facility] Comment on above: Performed By: #### C BCA, 31988-0, CMP, 56832-3, 97046-7 #### [facility] ([id number]) [address] [place] [address] 92900 Chloride [Moles/Vol] 95 mmol/L Low 98-109 [facility] Comment on above: Performed By: #### C BRITTNEY, 97408-9, CMP, 24425-0, 65177-3 #### [facility] ([id number]) [address] [place] [address] 86238 CO2 [Moles/Vol] 30 mmol/L Normal 22-32 [facility] Comment on above: Performed By: #### C BRITTNEY, 83113-8, CMP, 45727-9, 80408-3 #### [facility] ([id number]) [address] [place] [address] 34208 Creatinine [Mass/Vol] 0.63 mg/dL Normal 0.40-1.00 [facility] Comment on above: Result Comment: METH OD TRACEABLE TO IDMS STANDARD Performed By: #### C BRITTNEY, 31869-7, CMP, 73763-3, 19083-9 #### [facility] ([id number]) [address] [place] [address] 18705 eGFR (CKD-EPI) NON-RACE DEPENDENT >90 Normal >59 [facility] Comment on above: Result Comment: Reported eGFR is based on the CKD-EPI 2020 equation that does not use a race coefficient. Performed By: #### C BRITTNEY, 03721-2, CMP, 24086-3, 62277-2 #### [facility] ([id number]) [address] [place] [address] 78472 Glucose [Mass/Vol] 229 mg/dL High 65-99 [facility] Comment on above: Performed By: #### C BRITTNEY, 43064-2, CMP, 03033-8, 56453-1 #### [facility] ([id number]) [address] [place] [address] Potassium [Moles/Vol] 2.8 mmol/L Low 3.5-5.0 [facility] Comment on above: Performed By: #### C BRITTNEY, 23794-1, CMP, 17938-9, 32103-0 #### [facility] ([id number]) [address] [place] [address] 68170 Protein [Mass/Vol] 6.5 g/dL Normal 6.0-8.0 [facility] Comment on above: Performed By: #### C BCA, 15992-5, CMP, 99969-9, 11076-2 #### [facility] ([id number]) [address] [place] [address] 11615 Sodium [Moles/Vol] 133 mmol/L Low 134-146 [facility] Comment on above: Performed By: #### C BRITTNEY, 92391-4, CMP, 82052-6, 19738-9 #### [facility] ([id number]) [address] [place] [address] 74989 Urea nitrogen [Mass/Vol] 9 mg/dL Normal 5-27 [facility] Comment on above: Performed By: #### C BRITTNEY, 70473-7, CMP, 96553-0, 89665-5 #### [facility] ([id number]) [address] [place] [address] 96013 Glucose Glucometer (dC) [M ass/Vol]on 01-17-2024 Glucose [Mass/Vol] 406 mg/dL Critically high 65-99 [facility] Glucose [Mass/Vol] 296 mg/dL High 65-99 [facility] Glucose [Mass/Vol] 302 mg/dL High 65-99 [facility] MAGNESIUMon 01-17-2024 Magnesium [Mass/Vol] 2.1 mg/dL Normal 1.8-2.6 [facility] Comment on above: Performed By: #### C BCA, 47353-6, CMP, 14625-9, 21529-1 #### [facility] ([id number]) [address] [place] [address] 65607 POTASSIUMon 01-17-2024 Potassium [Moles/Vol] 3.7 mmol/L Normal 3.5-5.0 [facility] Comment on above: Performed By: #### Casey LUGO, 87777-7, CMP, , 81647-9 #### [facility] ([id number]) [address] [place] [address] 91456 URINE CULTUREon 01-17-2024 Bacteria identified Cx Nom (U) CULTURE RESULTS 10-50,000 ORGANISMS/mL NORMAL UROGENITAL AMILCAR Normal [facility] Comment on above: Performed By: #### Casey LUGO, 67765-4, CMP, , 36654-3 #### [facility] ([id number]) [address] [place] [address] 93296 CBC AND AUTO DIFFon 01-16-20 24 ABSOLUTE BASOPHIL 0.0 X10E9/L Normal 0.0-0.2 [facility] Comment on above: Performed By: #### Casey LUGO, 80898-9, CMP, , 96651-1 #### [facility] ([id number]) [address] [place] [address] 99543 ABSOLUTE NEUTROPHIL 10.0 X10E9/L High 1.5-6.6 [facility] Comment on above: Performed By: #### Casey LUGO, 97495-4, CMP, 11923-9, 95969-5 #### [facility] ([id number]) [address] [place] [address] 73909 Basophils/100 WBC (Bld) 0.3 % Normal [facility] Comment on above: Performed By: #### Casey LUGO, 85691-6, CMP, 14701-2, 75396-1 #### [facility] ([id number]) [address] [place] [address] 91074 Eosinophils (Bld) [#/Vol] 0.1 10*3/uL Normal 0.0-0.4 [facility] Comment on above: Performed By: #### Casey LUGO, 89239-3, CMP, 41330-8, 02466-2 #### [facility] ([id number]) [address] [place] [address] 93959 Eosinophils/100 WBC (Bld) 0.9 % Normal [facility] Comment on above: Performed By: #### Casey LUGO, 29734-8, CMP, 82028-2, 86004-3 #### [facility] ([id number]) [address] [place] [address] 17246 Erythrocyte distribution width (RBC) [Ratio] 13.5 % Normal 11.5-15.0 [facility] Comment on above: Performed By: #### Casey LUGO, 47050-7, CMP, 24848-7, 32197-4 #### [facility] ([id number]) [address] [place] [address] 45488 Hematocrit (Bld) [Volume fraction] 49.5 % High 35-47 [facility] Comment on above: Performed By: #### Casey LUGO, 42833-0, CMP, 39163-4, 49885-3 #### [facility] ([id number]) [address] [place] [address] 47965 Hemoglobin (Bld) [Mass/Vol] 16.8 g/dL High 11.7-15.5 [facility] Comment on above: Performed By: #### Casey LUGO, 30981-6, CMP, 26136-9, 72437-2 #### [facility] ([id number]) [address] [place] [address] 81471 Lymphocytes (Bld) [#/Vol] 1.9 10*3/uL Normal 1.0-3.5 [facility] Comment on above: Performed By: #### Casey LUGO, 86760-9, CMP, 78605-2, 13141-8 #### [facility] ([id number]) [address] [place] [address] 10863 Lymphocytes/100 WBC (Bld) 14.4 % Normal [facility] Comment on above: Performed By: #### Casey LUGO, 50402-3, CMP, 10628-4, 74818-5 #### [facility] ([id number]) [address] [place] [address] 40253 MCH (RBC) [Entitic mass] 31.7 pg Normal 27-34 [facility] Comment on above: Performed By: #### Casey LUGO, 92098-8, CMP, 19566-1, 30724-7 #### [facility] ([id number]) [address] [place] [address] [place] [address] MCHC (RBC) [Mass/Vol] 33.9 g/dL Normal 32-36 [facility] Comment on above: Performed By: #### Casey LUGO, 39342-7, CMP, 44933-8, 52971-7 #### [facility] ([id number]) [address] [place] [address] 46392 MCV (RBC) [Entitic vol] 94 fL Normal 80-100 [facility] Comment on above: Performed By: #### Casey LUGO, 69611-7, CMP, 46091-9, 64628-7 #### [facility] ([id number]) [address] [place] [address] 12391 Monocytes (Bld) [#/Vol] 1.1 10*3/uL High 0-0.9 [facility] Comment on above: Performed By: #### Casey LUGO, 84363-1, CMP, 13860-2, 98755-0 #### [facility] ([id number]) [address] [place] [address] 35046 Monocytes/100 WBC (Bld) 8.6 % Normal [facility] Comment on above: Performed By: #### Casey LUGO, 58857-2, CMP, 77379-5, 71919-9 #### [facility] ([id number]) [address] [place] [address] 41170 Neutrophils/100 WBC (Bld) 75.8 % Normal [facility] Comment on above: Performed By: #### Casey LUGO, 46726-4, CMP, 71237-8, 76608-9 #### [facility] ([id number]) [address] [place] [address] 84215 Platelet mean volume (Bld) [Entitic vol] 9.3 fL Normal 7-12 [facility] Comment on above: Performed By: #### Casey LUGO, 48577-1, CMP, , 23305-9 #### [facility] ([id number]) [address] [place] [address] 84482 Platelets (Bld) [#/Vol] 254 10*3/uL Normal 150-450 [facility] Comment on above: Performed By: #### Casey LUGO, 85079-1, CMP, 37904-6, 68976-9 #### [facility] ([id number]) [address] [place] [address] 50773 RBC COUNT 5.29 X10E12/L High 3.80-5.20 [facility] Comment on above: Performed By: #### Casey LUGO, 58267-1, CMP, 04096-7, 91770-8 #### [facility] ([id number]) [address] [place] [address] 99817 WBC (Bld) [#/Vol] 13.2 10*3/uL High 4.0-11.0 [facility] Comment on above: Performed By: #### C BCA, 56832-1, CMP, 59836-7, 91443-7 #### [facility] ([id number]) [address] [place] [address] 43111 COMPREHENSIVE METABOLIC PANE Blayne 01-16-2024 Albumin [Mass/Vol] 3.5 g/dL Normal 3.2-5.3 [facility] Comment on above: Performed By: #### C BCA, 19225-1, CMP, 63459-8, 37596-8 #### [facility] ([id number]) [address] [place] [address] 58404 ALP [Catalytic activity/Vol] 106 U/L Normal 39-130 [facility] Comment on above: Performed By: #### C BCA, 25643-9, CMP, 48823-2, 03156-2 #### [facility] ([id number]) [address] [place] [address] 24830 ALT [Catalytic activity/Vol] 15 U/L Normal 0-31 [facility] Comment on above: Performed By: #### C BCA, 23043-2, CMP, 88786-8, 70947-8 #### [facility] ([id number]) [address] [place] [address] 29135 Anion gap [Moles/Vol] 10 mmol/L Normal 5-15 [facility] Comment on above: Performed By: #### C BCA, 43103-2, CMP, 04467-3, 56312-2 #### [facility] ([id number]) [address] [place] [address] [place] [address] AST [Catalytic activity/Vol] 13 U/L Normal 0-41 [facility] Comment on above: Performed By: #### C BCA, 43279-2, CMP, 70693-0, 65483-0 #### [facility] ([id number]) [address] [place] [address] 50384 Bilirubin [Mass/Vol] 0.7 mg/dL Normal 0.3-1.2 [facility] Comment on above: Performed By: #### C BCA, 06754-9, CMP, 00472-6, 10771-0 #### [facility] ([id number]) [address] [place] [address] 80639 Calcium [Mass/Vol] 8.4 mg/dL Low 8.5-10.5 [facility] Comment on above: Performed By: #### C BCA, 90855-9, CMP, 38576-6, 00419-1 #### [facility] ([id number]) [address] [place] [address] 46336 Chloride [Moles/Vol] 92 mmol/L Low 98-109 [facility] Comment on above: Performed By: #### C BCA, 45555-9, CMP, 20671-9, 38774-6 #### [facility] ([id number]) [address] [place] [address] 25126 CO2 [Moles/Vol] 28 mmol/L Normal 22-32 [facility] Comment on above: Performed By: #### C BCA, 06212-6, CMP, 43318-3, 57158-9 #### [facility] ([id number]) [address] [place] [address] 45798 Creatinine [Mass/Vol] 0.77 mg/dL Normal 0.40-1.00 [facility] Comment on above: Result Comment: METH OD TRACEABLE TO IDMS STANDARD Performed By: #### C BCA, 22038-3, CMP, 81783-3, 60477-1 #### [facility] ([id number]) [address] [place] [address] 36289 GFR/1.73 sq M.predicted among non-blacks MDRD (S/P/Bld) [Vol rate/Area] 86 mL/min/{1.73_m2} Normal >59 [facility] Comment on above: Result Comment: Reported eGFR is based on the CKD-EPI 2020 equation that does not use a race coefficient. Performed By: #### C BCA, 34283-6, CMP, 23723-1, 62128-7 #### [facility] ([id number]) [address] [place] [address] 66928 Glucose [Mass/Vol] 512 mg/dL Critically high 65-99 [facility] Comment on above: Performed By: #### C BCA, 69630-2, CMP, 10527-5, 82007-2 #### [facility] ([id number]) [address] [place] [address] 36739 Potassium [Moles/Vol] 2.8 mmol/L Low 3.5-5.0 [facility] Comment on above: Performed By: #### C BCA, 14727-4, [facility], 48960-5, 32257-9 #### [facility] ([id number]) [address] [place] [address] 87183 Protein [Mass/Vol] 6.8 g/dL Normal 6.0-8.0 [facility] Comment on above: Performed By: #### C BCA, 07299-9, CMP, , 80857-6 #### [facility] ([id number]) [address] [place] [address] 03125 Sodium [Moles/Vol] 130 mmol/L Low 134-146 [facility] Comment on above: Performed By: #### C BCA, 28166-2, CMP, 69077-8, 26870-3 #### [facility] ([id number]) [address] [place] [address] 14735 Urea nitrogen [Mass/Vol] 8 mg/dL Normal 5-27 [facility] Comment on above: Performed By: #### C BRITTNEY, 71226-7, [facility], 45057-7, 18899-8 #### [facility] ([id number]) [address] [place] [address] BRAIN WO CONTon CT BRAIN WO [...] Jones MD on 01/16/2024 2:11 PM Normal [facility] Glucose Glucometer (dC) [M ass/Vol]on 01-16-2024 Glucose [Mass/Vol] 254 mg/dL High 65-99 [facility] Glucose [Mass/Vol] 265 mg/dL High 65-99 [facility] Glucose [Mass/Vol] 381 mg/dL High 65-99 [facility] Glucose [Mass/Vol] 373 mg/dL High 65-99 [facility] MAGNESIUMon 01-16-2024 Magnesium [Mass/Vol] 2.0 mg/dL Normal 1.8-2.6 [facility] Comment on above: Performed By: #### C BRITTNEY, 54703-8, [facility], 85302-6, 71082-3 #### [facility] ([id number]) [address] [place] [address], [place] [address] Procalcitonin IA [Mass/Vol]o n 01-16-2024 PROCALCITONIN 0.07 ng/mL High <0.05 [facility] Comment on above: Result Comment: NOTE <0.50 ng/mL - Low risk of severe sepsis and/or septic shock. <2.00 ng/mL - Recommend retesting within 6-24 hours. >2.00 ng/mL - High risk of sepsis and/or septic shock. Performed By: #### C BRITTNEY, 51377-3, [facility], 59376-1, 40224-2 #### [facility] ([id number]) [address] [place] [address] 26291 Troponin I.cardiac High sens itivity method [Mass/Vol]on 01-16-2024 1 HOUR TROP I, HIGH SENSITIVITY 5 ng/L Normal <16 [facility] Comment on above: Performed By: #### 8 9579-7 #### [facility] ([id number]) [address] [place] [address] 56856 TROPONIN I, HIGH SENSITIVITY 5 ng/L Normal <16 [facility] Comment on above: Performed By: #### Casey LUGO, 81781-0, [facility], , 19855-6 #### [facility] ([id number]) [address] [place] [address] 75703 URINALYSISon 01-16-2024 Bilirubin Ql (U) Negative Normal NEG [facility] Comment on above: Performed By: #### Casey LUGO, 78924-9, [facility], , 89750-1 #### [facility] ([id number]) [address] [place] [address] 01422 BLOOD/HGB Trace Abnormal NEG [facility] Comment on above: Performed By: #### Casey LUGO, 48269-9, [facility], , 14917-2 #### [facility] ([id number]) [address] [place] [address] 21293 Color (U) YELLOW Normal YELLOW [facility] Comment on above: Performed By: #### C BRITTNEY, 45444-8, CMP, 06248-0, 00216-1 #### [facility] ([id number]) [address] [place] [address] 71194 Glucose Ql (U) >1000 Abnormal NEG [facility] Comment on above: Performed By: #### Casey LUGO, 47223-2, CMP, 90280-1, 49473-1 #### [facility] ([id number]) [address] [place] [address] 69249 Ketones Ql (U) Negative Normal NEG [facility] Comment on above: Performed By: #### Casey LUGO, 82195-8, CMP, 25443-4, 65095-4 #### [facility] ([id number]) [address] [place] [address] 76032 Leukocyte esterase Test strip Ql (U) Negative Normal NEG [facility] Comment on above: Result Comment: HIGH CONCENTRATIONS OF GLUCOSE MAY DECREASE THE REACTIVITY OF THE DIPSTICK LEUKOCYTE TEST PAD. Performed By: #### C BRITTNEY, 18118-5, CMP, 72441-6, 15098-5 #### [facility] ([id number]) [address] [place] [address] 27793 Nitrite Ql (U) Negative Normal NEG [facility] Comment on above: Performed By: #### Casey LUGO, 00328-2, CMP, 19181-5, 60471-1 #### [facility] ([id number]) [address] [place] [address] 01623 pH (U) 6.0 [pH] Normal 5.0-8.5 [facility] Comment on above: Performed By: #### C BRITTNEY, 03038-1, CMP, 41912-2, 31222-6 #### [facility] ([id number]) [address] [place] [address] 90121 Protein Ql (U) Negative Normal NEG [facility] Comment on above: Performed By: #### Casey LUGO, 64352-9, CMP, 37353-2, 29991-3 #### [facility] ([id number]) [address] [place] [address] 88104 R.B.CELLS 6 /hpf High 0-5 [facility] Comment on above: Performed By: #### Casey LUGO, 52861-6, CMP, 05770-3, 16217-0 #### [facility] ([id number]) [address] [place] [address] 71832 Specific gravity (U) [Rel density] <1.005 Normal 1.003-1.035 [facility] Comment on above: Performed By: #### Casey LUGO, 64012-2, CMP, 55100-7, 60842-7 #### [facility] ([id number]) [address] [place] [address] [place] [address] SQUAMOUS EPITHELIUM 2 /hpf Normal 0-5 [facility] Comment on above: Performed By: #### Casey LUGO, 38729-0, CMP, 68842-9, 88357-8 #### [facility] ([id number]) [address] [place] [address] 48137 TURBIDITY CLEAR Normal CLEAR [facility] Comment on above: Performed By: #### Casey LUGO, 79293-1, CMP, 52541-2, 30736-8 #### [facility] ([id number]) [address] [place] [address] 72149 Urobilinogen Qn (U) 0.2 {Beau'U}/dL Normal <1.1 [facility] Comment on above: Performed By: #### Casey LUGO, 23937-2, CMP, 60714-7, 73115-7 #### [facility] ([id number]) [address] [place] [address] [place] [address] W.B.CELLS 2 /hpf Normal 0-5 [facility] Comment on above: Performed By: #### C BCA, 48857-3, CMP, 97408-4, 04530-6 #### [facility] ([id number]) [address] [place] [address] 51697 URN MACROSCOPIC NURon 2023 BILIRUBIN ANISHA Negative Normal NEG [facility] Comment on above: Performed By: #### N UM #### [facility] ([id number]) [address] [place] [address] 09532 BLOOD/HGB ANISHA Trace Abnormal NEG [facility] Comment on above: Performed By: #### N UM #### [facility] ([id number]) [address] [place] [address] 69512 GLUCOSE ANISHA >=1000 Abnormal NEG [facility] Comment on above: Performed By: #### N UM #### [facility] ([id number]) [address] [place] [address] [place] [address] KETONES ANISHA Negative Normal NEG [facility] Comment on above: Performed By: #### N UM #### [facility] ([id number]) [address] [place] [address] 93166 LEUKOCYTE ESTERASE ANISHA Trace Abnormal NEG [facility] Comment on above: Performed By: #### N UM #### [facility] ([id number]) [address] [place] [address] [place] [address] NITRITE ANISHA Negative Normal NEG [facility] Comment on above: Performed By: #### N UM #### [facility] ([id number]) [address] [place] [address] PH ANISHA 5.5 Normal 5.0-8.5 [facility] Comment on above: Performed By: #### N UM #### [facility] ([id number]) [address] [place] [address] PROTEIN ANISHA Negative Normal NEG [facility] Comment on above: Performed By: #### N UM #### [facility] ([id number]) [address] [place] [address] SPECIFIC GRAVITY ANISHA <=1.005 Normal 1.003-1.035 [facility] Comment on above: Performed By: #### N UM #### [facility] ([id number]) [address] [place] [address] UROBILINOGEN ANISHA 0.2 eu/dL Normal <1.1 [facility] Comment on above: Performed By: #### N UM #### [facility] ([id number]) [address] [place] [address] 36on 09-05-2023 36 Can order for lasix 20mg daily. Thanks [facility] 36on 09-04-2023 36 Doesn't look like we have noted her to be on lasix since 01/2023. How often was she taking it? Was her PCP prescribing it? [facility] Office Visiton 01-08-2023 Follow-up visit [id number] Denae Dior 1960 F Date Provider Department Center 01/08/2023 [id number] [facility] Family History Problem Relation Age of Onset Stroke Father Family Status - Relation Status Age at Father Level of Service:[id number] ID OFFICE/OUTPATIENT ESTABLISHED MOD MDM 30-39 MIN [facility] XR DEXA BONE DENSITYon 10-02 XR [...] by: ROBERT HART Date: 2022-10-02 12:08 Normal [facility] LIPID PROFILEon 08-09-2022 CHOL-HDL RATIO NORM SEE BELOW Normal [facility] Comment on above: Result Comment: 3.3 - 4.4 LOW RISK 4.4 - 7.1 AVERAGE RISK 7.1 - 11.0 MODERATE RISK >11.0 HIGH RISK Performed By: #### M ALBR #### [facility] [address] [address] [address] Maru Disla Cholesterol [Mass/Vol] 110 mg/dL Normal <=200 [facility] Comment on above: Performed By: #### M ALBR #### [facility] [address] [address] [address] Maru Disla Cholesterol in HDL [Mass/Vol] 38 mg/dL Critically low 40-60 [facility] Comment on above: Performed By: #### M ALBR #### [facility] [address] [address] [address] Maru Disla Cholesterol in LDL [Mass/Vol] 52.4 mg/dL Normal [facility] Comment on above: Performed By: #### M ALBR #### [facility] [address] [address] [address] Maru Disla Cholesterol.total/Chol esterol in HDL [Mass ratio] 2.9 {ratio} Normal [facility] Comment on above: Performed By: #### M ALBR #### [facility] [address] [address] [address] Maru Disla HDL NORMAL > or = 60 mg/dl - LOW CARDIOVASCULAR RISK <40 mg/dl - HIGH CARDIOVASCULAR RISK Normal [facility] Comment on above: Performed By: #### M ALBR #### [facility] [address] [address] [address] Maru Disla LDL CALC NORMAL SEE BELOW Normal [facility] Comment on above: Result Comment: <100 mg/dl OPTIMAL 100 - 129 mg/dl NEAR OR ABOVE OPTIMAL 130 - 159 mg/dl BORDERLINE HIGH 160 - 189 mg/dl HIGH >190 mg/dl VERY HIGH Performed By: #### M ALBR #### [facility] [address] [address] [address] Maru Disla Triglyceride [Mass/Vol] 98 mg/dL Normal <=150 [facility] Comment on above: Performed By: #### M ALBR #### [facility] [address] [address] [address] Maru Disla VLDL CALC 19.6 mg/dL Normal [facility] Comment on above: Performed By: #### M ALBR #### [facility] [address] [place] [address] Dr. Maru Disla MICROALBUMIN, RAND URon mALB <1.3 Normal <=30.0 [facility] Comment on above: Performed By: #### M ALBR #### [facility] [address] [address] [address] Maru Disla PROF 14(COMP METB)on 023 Albumin [Mass/Vol] 3.6 g/dL Normal 3.4-5.0 [facility] Comment on above: Performed By: #### M ALBR #### [facility] [address] [address] [address] Maru Disla Albumin/Globulin [Mass ratio] 0.9 {ratio} Normal [facility] Comment on above: Performed By: #### M ALBR #### [facility] [address] [address] [address] Maru Disla ALP [Catalytic activity/Vol] 92 U/L Normal 46-116 [facility] Comment on above: Performed By: #### M ALBR #### [facility] [address] [address] [address] Maru Disla ALT [Catalytic activity/Vol] 22 U/L Normal 14-59 [facility] Comment on above: Performed By: #### M ALBR #### [facility] [address] [address] [address] Maru Disla Anion gap [Moles/Vol] 13.2 mmol/L Normal [facility] Comment on above: Performed By: #### M ALBR #### [facility] [address] [address] [address] Maru Disla AST [Catalytic activity/Vol] 17 U/L Normal 15-37 [facility] Comment on above: Performed By: #### M ALBR #### [facility] [address] [address] [address] Maru Disla Bilirubin [Mass/Vol] 0.4 mg/dL Normal 0.2-1.0 [facility] Comment on above: Performed By: #### M ALBR #### [facility] [address] [address] [address] Maru Disla Calcium [Mass/Vol] 9.3 mg/dL Normal 8.5-10.1 [facility] Comment on above: Performed By: #### M ALBR #### [facility] [address] [address] [address] Maru Disla Chloride [Moles/Vol] 102 mmol/L Normal 98-107 [facility] Comment on above: Performed By: #### M ALBR #### [facility] [address] [address] [address] Maru Disla CO2 [Moles/Vol] 29.7 mmol/L Normal 21.0-32.0 [facility] Comment on above: Performed By: #### M ALBR #### [facility] [address] [address] [address] Maru Disla Creatinine [Mass/Vol] 0.74 mg/dL Normal 0.55-1.02 [facility] Comment on above: Performed By: #### M ALBR #### [facility] [address] [address] [address] Maru Disla EGFR-AF UGANDAN >60 Normal >=60 [facility] Comment on above: Performed By: #### M ALBR #### [facility] [address] [address] [address] Maru Disla EGFR-NON AF UGANDAN >60 Normal >=60 [facility] Comment on above: Performed By: #### M ALBR #### [facility] [address] [address] [address] Maru Disla Globulin (S) [Mass/Vol] 3.9 g/dL Normal [facility] Comment on above: Performed By: #### M ALBR #### [facility] [address] [address] [address] Maru Disla Glucose [Mass/Vol] 271 mg/dL Critically high 74-106 [facility] Comment on above: Performed By: #### M ALBR #### [facility] [address] [place] [address] Dr. Maru Disla Potassium [Moles/Vol] 3.9 mmol/L Normal 3.5-5.1 [facility] Comment on above: Performed By: #### M ALBR #### [facility] [address] [place] [address] Dr. Maru Disla Protein [Mass/Vol] 7.5 g/dL Normal 6.4-8.2 [facility] Comment on above: Performed By: #### M ALBR #### [facility] [address] [place] [address] Dr. Maru Disla Sodium [Moles/Vol] 141 mmol/L Normal 136-[address] [facility] Comment on above: Performed By: #### M ALBR #### [facility] [address] [address] [address] Maru Disla Urea nitrogen [Mass/Vol] 8.0 mg/dL Normal 7.0-18.0 [facility] Comment on above: Performed By: #### M ALBR #### [facility] [address] [place] [address] Dr. Maru Disla Urea nitrogen/Creatinine [Mass ratio] 10.8 mg/mg Normal [facility] Comment on above: Performed By: #### M ALBR #### [facility] [address] [place] [address] Dr. 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 LOCATION: [facility] BREAST COMPOSITION: Scattered areas fibroglandular density. FINDINGS: [...] MD on 06/21/2022 at 10:10 Normal [facility] HEMOGLOBINon 06-20-2022 Hemoglobin (Bld) [Mass/Vol] 15.1 g/dL Normal 12.0-16.0 [facility] Comment on above: Performed By: #### B MP #### [facility] [address] [place] [address] Dr. Maru Disla BNPon 04-09-2022 Natriuretic peptide B (Bld) [Mass/Vol] 824.0 pg/mL Normal <=900.0 [facility] Comment on above: Performed By: #### M ALBR #### [facility] [address] [address] [address] Maru Disla CARDIAC BREANNE ADMITon 022 CK [Catalytic activity/Vol] 364 U/L Critically high 26-192 [facility] Comment on above: Performed By: #### P OCGLUC #### [facility] [address] [place] [address] Dr. Maru Disla CK.MB [Mass/Vol] 5.60 ng/mL Critically high <=3.60 [facility] Comment on above: Performed By: #### P OCGLUC #### [facility] [address] [place] [address] Dr. Maru Disla HSTROP 454.7 pg/mL Critically high 4.0-51.3 [facility] Comment on above: Result Comment: CUT- OFF POINTS HAVE BEEN ESTABLISHED BASED ON THE FOURTH UNIVERSAL DEFINITIONS OF MYOCARDIAL INFARCTION. THE UPPER REFERENCE LIMIT (URL) OF TROPONIN, DEFINED THE 99TH PERCENTILE OF cTnI DISTRIBUTION IN A REFERENCE POPULATION, HAS BEEN CONFIRMED THE DECISION THRESHOLD FOR SD DIAGNOSIS. Performed By: #### P OCGLUC #### [facility] [address] [place] [address] Dr. Maru Disla REDD 137 ng/mL Critically high 9-82 [facility] Comment on above: Performed By: #### P OCGLUC #### [facility] [address] [place] [address] Dr. Maru Disla CBC AUTO DIFFon 04-09-2022 BASO # 0.0 103/ul Normal 0.0-0.1 [facility] Comment on above: Performed By: #### A BG #### [facility] [address] [place] [address] Dr. Maru Disla Basophils/100 WBC (Bld) 0.2 % Normal 0.2-2.0 [facility] Comment on above: Performed By: #### A BG #### [facility] [address] [place] [address] Dr. Maru Disla EO # 0.0 103/ul Normal 0.0-0.7 [facility] Comment on above: Performed By: #### A BG #### [facility] [address] [place] [address] Dr. Maru Disla Eosinophils/100 WBC (Bld) 0.0 % Critically low 0.9-7.0 [facility] Comment on above: Performed By: #### A BG #### [facility] [address] [place] [address] Dr. Maru Disla Erythrocyte distribution width (RBC) [Ratio] 13.4 % Normal 11.0-15.0 [facility] Comment on above: Performed By: #### A BG #### [facility] [address] [place] [address] Dr. Maru Disla Hematocrit (Bld) [Volume fraction] 48.3 % Critically high 36.0-48.0 [facility] Comment on above: Performed By: #### A BG #### [facility] [address] [place] [address] Dr. Maru Disla Hemoglobin (Bld) [Mass/Vol] 15.3 g/dL Normal 12.0-16.0 [facility] Comment on above: Performed By: #### A BG #### [facility] [address] [place] [address] Dr. Maru Disla IG # 0.11 10e3/ul Critically high 0.00-0.03 [facility] Comment on above: Performed By: #### A BG #### [facility] [address] [place] [address] Dr. Maru Disla IG % 0.6 % Critically high 0.0-0.[address] [facility] Comment on above: Performed By: #### A BG #### [facility] [address] [place] [address] Dr. Maru Disla LYMPH # 1.1 103/ul Critically low 1.2-3.8 [facility] Comment on above: Performed By: #### A BG #### [facility] [address] [place] [address] Dr. Maru Disla Lymphocytes/100 WBC (Bld) 6.1 % Critically low 20.5-60.0 [facility] Comment on above: Performed By: #### A BG #### [facility] [address] [place] [address] Dr. Maru Disla MANUAL DIFF REQ NO Normal [facility] Comment on above: Performed By: #### A BG #### [facility] [address] [place] [address] Dr. Maru Disla MCH (RBC) [Entitic mass] 29.8 pg Normal 26.7-34.0 [facility] Comment on above: Performed By: #### A BG #### [facility] [address] [place] [address] Dr. Maru Disla MCHC (RBC) [Mass/Vol] 31.7 g/dL Normal 29.9-35.2 [facility] Comment on above: Performed By: #### A BG #### [facility] [address] [place] [address] Dr. Maru Disla MCV (RBC) [Entitic vol] 94.2 fL Normal 81.0-99.0 [facility] Comment on above: Performed By: #### A BG #### [facility] [address] [place] [address] Dr. Maru Disla MONO # 0.7 103/ul Normal 0.3-0.8 [facility] Comment on above: Performed By: #### A BG #### [facility] [address] [place] [address] Dr. Maru Disla Monocytes/100 WBC (Bld) 3.9 % Normal 1.7-12.0 [facility] Comment on above: Performed By: #### A BG #### [facility] [address] [place] [address] Dr. Maru Disla NEUT # 15.3 103/ul Critically high 1.4-6.5 [facility] Comment on above: Performed By: #### A BG #### [facility] [address] [place] [address] Dr. Maru Disla Neutrophils/100 WBC (Bld) 89.2 % Critically high 43.0-75.0 [facility] Comment on above: Performed By: #### A BG #### [facility] [address] [place] [address] Dr. Maru Disla Platelet mean volume (Bld) [Entitic vol] 10.4 fL Normal 9.5-13.5 [facility] Comment on above: Performed By: #### A BG #### [facility] [address] [address] [address] Maru Disla PLT 311 103/ul Normal 150-450 [facility] Comment on above: Performed By: #### A BG #### [facility] [address] [address] [address] Maru Disla RBC 5.13 106/ul Normal 4.20-5.40 [facility] Comment on above: Performed By: #### A BG #### [facility] [address] [address] [address] Maru Disla WBC 17.2 103/ul Critically high 4.0-11.0 [facility] Comment on above: Performed By: #### A BG #### [facility] [address] [place] [address] Dr. Maru Disla ECHOCARDIO M/2D COMPLETEon 1 06-09-2021 ECHOCARDIO M/2D COMPLETE Patient: DENAE DIOR Exam Date: 04/09/2022 : 1960 Gender:F Ordering : DR TERI BLOCK . Admission #: [id number] Family : Order #: [id number] CLICK HERE TO VIEW EXAM ECHOCARDIOGRAM REPORT [...] Subramanian M.D. on 04/10/2022 at 15:44 Normal [facility] POINT OF CARE GLUCOSEon 11-0 Glucose [Mass/Vol] 171 mg/dL Critically high 74-106 [facility] Comment on above: Performed By: #### P OCGLUC #### [facility] [address] [place] [address] Dr. Maru Disla Glucose [Mass/Vol] 97 mg/dL Normal 74-[address] [facility] Comment on above: Performed By: #### M ALBR #### [facility] [address] [place] [address] Dr. Maru Disla PROF CHEM 8 (BAS METB)on Anion gap [Moles/Vol] 9.1 mmol/L Normal [facility] Comment on above: Performed By: #### P OCGLUC #### [facility] [address] [place] [address] Dr. Maru Disla Calcium [Mass/Vol] 8.7 mg/dL Normal 8.5-10.1 [facility] Comment on above: Performed By: #### P OCGLUC #### [facility] [address] [place] [address] Dr. Maru Disla Chloride [Moles/Vol] 104 mmol/L Normal 98-107 [facility] Comment on above: Performed By: #### P OCGLUC #### [facility] [address] [address] [address] Maru Disla CO2 [Moles/Vol] 33.2 mmol/L Critically high 21.0-32.0 [facility] Comment on above: Performed By: #### P OCGLUC #### [facility] [address] [place] [address] Dr. Maru Disla Creatinine [Mass/Vol] 0.87 mg/dL Normal 0.55-1.02 [facility] Comment on above: Performed By: #### P OCGLUC #### [facility] [address] [place] [address] Dr. Maru Disla EGFR-AF UGANDAN >60 Normal >=60 [facility] Comment on above: Performed By: #### P OCGLUC #### [facility] [address] [address] [address] Maru Disla EGFR-NON AF UGANDAN >60 Normal >=60 [facility] Comment on above: Performed By: #### P OCGLUC #### [facility] [address] [address] [address] Maru Disla Glucose [Mass/Vol] 115 mg/dL Critically high 74-106 [facility] Comment on above: Performed By: #### P OCGLUC #### [facility] [address] [address] [address] Maru Disla Potassium [Moles/Vol] 4.3 mmol/L Normal 3.5-5.1 [facility] Comment on above: Performed By: #### P OCGLUC #### [facility] [address] [place] [address] Dr. Maru Disla Sodium [Moles/Vol] 142 mmol/L Normal 136-145 [facility] Comment on above: Performed By: #### P OCGLUC #### [facility] [address] [place] [address] Dr. Maru Disla Urea nitrogen [Mass/Vol] 36.0 mg/dL Critically high 7.0-18.0 [facility] Comment on above: Performed By: #### P OCGLUC #### [facility] [address] [place] [address] Dr. Maru Disla Urea nitrogen/Creatinine [Mass ratio] 41.4 mg/mg Normal [facility] Comment on above: Performed By: #### P OCGLUC #### [facility] [address] [address] [address] Maru Disla CARDIAC BREANNE 3-6on 2 CK [Catalytic activity/Vol] 381 U/L Critically high 26-192 [facility] Comment on above: Performed By: #### C MREP #### [facility] [address] [place] [address] Dr. Maru Disla CK.MB [Mass/Vol] 7.91 ng/mL Critically high <=3.60 [facility] Comment on above: Performed By: #### C MREP #### [facility] [address] [place] [address] Dr. Maru Disla HSTROP 766.1 pg/mL Critically high 4.0-51.3 [facility] Comment on above: Result Comment: CUT- OFF POINTS HAVE BEEN ESTABLISHED BASED ON THE FOURTH UNIVERSAL DEFINITIONS OF MYOCARDIAL INFARCTION. THE UPPER REFERENCE LIMIT (URL) OF TROPONIN, DEFINED THE 99TH PERCENTILE OF cTnI DISTRIBUTION IN A REFERENCE POPULATION, HAS BEEN CONFIRMED THE DECISION THRESHOLD FOR SD DIAGNOSIS. Performed By: #### C MREP #### [facility] [address] [address] [address] Maru Disla CK [Catalytic activity/Vol] 356 U/L Critically high 26-192 [facility] Comment on above: Performed By: #### C MREP #### [facility] [address] [address] [address] Maru Disla CK.MB [Mass/Vol] 8.66 ng/mL Critically high <=3.60 [facility] Comment on above: Performed By: #### C MREP #### [facility] [address] [place] [address] Dr. Maru Disla HSTROP 610.6 pg/mL Critically high 4.0-51.3 [facility] Comment on above: Result Comment: CUT- OFF POINTS HAVE BEEN ESTABLISHED BASED ON THE FOURTH UNIVERSAL DEFINITIONS OF MYOCARDIAL INFARCTION. THE UPPER REFERENCE LIMIT (URL) OF TROPONIN, DEFINED THE 99TH PERCENTILE OF cTnI DISTRIBUTION IN A REFERENCE POPULATION, HAS BEEN CONFIRMED THE DECISION THRESHOLD FOR SD DIAGNOSIS. Performed By: #### C MREP #### [facility] [address] [address] [address] Maru Disla CARDIAC BREANNE ADMITon 022 CK [Catalytic activity/Vol] 381 U/L Critically high 26-192 [facility] Comment on above: Performed By: #### C MADM #### [facility] [address] [address] [address] Maru Disla CK.MB [Mass/Vol] 8.07 ng/mL Critically high <=3.60 [facility] Comment on above: Performed By: #### C MADM #### [facility] [address] [place] [address] Dr. Maru Disla HSTROP 220.2 pg/mL Critically high 4.0-51.3 [facility] Comment on above: Result Comment: CUT- OFF POINTS HAVE BEEN ESTABLISHED BASED ON THE FOURTH UNIVERSAL DEFINITIONS OF MYOCARDIAL INFARCTION. THE UPPER REFERENCE LIMIT (URL) OF TROPONIN, DEFINED THE 99TH PERCENTILE OF cTnI DISTRIBUTION IN A REFERENCE POPULATION, HAS BEEN CONFIRMED THE DECISION THRESHOLD FOR SD DIAGNOSIS. Performed By: #### C MADM #### [facility] [address] [place] [address] Dr. Maru Disla REDD 269 ng/mL Critically high 9-82 [facility] Comment on above: Performed By: #### C MADM #### [facility] [address] [place] [address] Dr. Maru Disla CBC AUTO DIFFon 04-08-2022 BASO # 0.0 103/ul Normal 0.0-0.1 [facility] Comment on above: Performed By: #### M ALBR #### [facility] [address] [place] [address] Dr. Maru Disla Basophils/100 WBC (Bld) 0.2 % Normal 0.2-2.0 [facility] Comment on above: Performed By: #### M ALBR #### [facility] [address] [place] [address] Dr. Maru Disla EO # 0.0 103/ul Normal 0.0-0.7 [facility] Comment on above: Performed By: #### M ALBR #### [facility] [address] [place] [address] Dr. Maru Disla Eosinophils/100 WBC (Bld) 0.0 % Critically low 0.9-7.0 [facility] Comment on above: Performed By: #### M ALBR #### [facility] [address] [place] [address] Dr. Maru Disla Erythrocyte distribution width (RBC) [Ratio] 13.4 % Normal 11.0-15.0 [facility] Comment on above: Performed By: #### M ALBR #### [facility] [address] [place] [address] Dr. Maru Disla Hematocrit (Bld) [Volume fraction] 52.7 % Critically high 36.0-48.0 [facility] Comment on above: Performed By: #### M ALBR #### [facility] [address] [place] [address] Dr. Maru Disla Hemoglobin (Bld) [Mass/Vol] 16.8 g/dL Critically high 12.0-16.0 [facility] Comment on above: Performed By: #### M ALBR #### [facility] [address] [place] [address] Dr. Maru Disla IG # 0.13 10e3/ul Critically high 0.00-0.03 [facility] Comment on above: Performed By: #### M ALBR #### [facility] [address] [place] [address] Dr. Maru Disla IG % 0.6 % Critically high 0.0-0.5 [facility] Comment on above: Performed By: #### M ALBR #### [facility] [address] [place] [address] Dr. Maru Disla LYMPH # 0.8 103/ul Critically low 1.2-3.8 [facility] Comment on above: Performed By: #### M ALBR #### [facility] [address] [place] [address] Dr. Maru Disla Lymphocytes/100 WBC (Bld) 3.4 % Critically low 20.5-60.0 [facility] Comment on above: Performed By: #### M ALBR #### [facility] [address] [place] [address] Dr. Maru Disla MANUAL DIFF REQ NO Normal [facility] Comment on above: Performed By: #### M ALBR #### [facility] [address] [place] [address] Dr. Maru Disla MCH (RBC) [Entitic mass] 29.4 pg Normal 26.7-34.0 [facility] Comment on above: Performed By: #### M ALBR #### [facility] [address] [place] [address] Dr. Maru Disla MCHC (RBC) [Mass/Vol] 31.9 g/dL Normal 29.9-35.2 [facility] Comment on above: Performed By: #### M ALBR #### [facility] [address] [place] [address] Dr. Maru Disla MCV (RBC) [Entitic vol] 92.1 fL Normal 81.0-99.0 [facility] Comment on above: Performed By: #### M ALBR #### [facility] [address] [place] [address] Dr. Maru Disla MONO # 0.8 103/ul Normal 0.3-0.8 [facility] Comment on above: Performed By: #### M ALBR #### [facility] [address] [place] [address] Dr. Maru Disla Monocytes/100 WBC (Bld) 3.4 % Normal 1.7-12.0 [facility] Comment on above: Performed By: #### M ALBR #### [facility] [address] [place] [address] Dr. Maru Disla NEUT # 21.8 103/ul Critically high 1.4-6.5 [facility] Comment on above: Performed By: #### M ALBR #### [facility] [address] [place] [address] Dr. Maru Disla Neutrophils/100 WBC (Bld) 92.4 % Critically high 43.0-75.0 [facility] Comment on above: Performed By: #### M ALBR #### [facility] [address] [place] [address] Dr. Maru Disla Platelet mean volume (Bld) [Entitic vol] 10.4 fL Normal 9.5-13.5 [facility] Comment on above: Performed By: #### M ALBR #### [facility] [address] [place], [place] [id number] Dr. Maru Disla PLT 335 103/ul Normal 150-450 [facility] Comment on above: Performed By: #### M ALBR #### [facility] [address] [place] [address] Dr. Maru iDsla RBC 5.72 106/ul Critically high 4.20-5.40 [facility] Comment on above: Performed By: #### M ALBR #### [facility] [address] [place] [address] Dr. Maru Disla WBC 23.5 103/ul Critically high 4.0-11.0 [facility] Comment on above: Performed By: #### M ALBR #### [facility] [address] [place] [address] Dr. Maru Disla POINT OF CARE GLUCOSEon 11-0 Glucose [Mass/Vol] 275 mg/dL Critically high 74-106 [facility] Comment on above: Performed By: #### P OCGLUC #### [facility] [address] [place] [address] Dr. Maru Disla Glucose [Mass/Vol] 161 mg/dL Critically high 74-106 [facility] Comment on above: Performed By: #### B MP #### [facility] [address] [place] [address] Dr. Maru Disla Glucose [Mass/Vol] 140 mg/dL Critically high 74-106 [facility] Comment on above: Performed By: #### P OCGLUC #### [facility] [address] [place] [address] Dr. Maru Disla Glucose [Mass/Vol] 219 mg/dL Critically high 74-106 [facility] Comment on above: Performed By: #### P OCGLUC #### [facility] [address] [place] [address] Dr. Maru Disla PROF CHEM 8 (BAS METB)on Anion gap [Moles/Vol] 14.0 mmol/L Normal [facility] Comment on above: Performed By: #### M ALBR #### [facility] [address] [place] [address] Dr. Maru Disla Calcium [Mass/Vol] 9.3 mg/dL Normal 8.5-10.1 [facility] Comment on above: Performed By: #### M ALBR #### [facility] [address] [address] [address] Maru Disla Chloride [Moles/Vol] 98 mmol/L Normal 98-107 [facility] Comment on above: Performed By: #### M ALBR #### [facility] [address] [address] [address] Maru Disla CO2 [Moles/Vol] 30.5 mmol/L Normal 21.0-32.0 [facility] Comment on above: Performed By: #### M ALBR #### [facility] [address] [place] [address] Dr. Maru Disla Creatinine [Mass/Vol] 1.09 mg/dL Critically high 0.55-1.02 [facility] Comment on above: Performed By: #### M ALBR #### [facility] [address] [address] [address] Maru Disla EGFR-AF UGANDAN >60 Normal >=60 [facility] Comment on above: Performed By: #### M ALBR #### [facility] [address] [place] [address] Dr. Maru Disla EGFR-NON AF UGANDAN 51 mL/min/1.73m2 Critically low >=60 [facility] Comment on above: Performed By: #### M ALBR #### [facility] [address] [address] [address] Maru Disla Glucose [Mass/Vol] 242 mg/dL Critically high 74-106 [facility] Comment on above: Performed By: #### M ALBR #### [facility] [address] [address] [address] Maru Disla Potassium [Moles/Vol] 3.5 mmol/L Normal 3.5-5.1 [facility] Comment on above: Performed By: #### M ALBR #### [facility] [address] [address] [address] Maru Disla Sodium [Moles/Vol] 139 mmol/L Normal 136-145 [facility] Comment on above: Performed By: #### M ALBR #### [facility] [address] [address] [address] Maru Disla Urea nitrogen [Mass/Vol] 32.0 mg/dL Critically high 7.0-18.0 [facility] Comment on above: Performed By: #### M ALBR #### [facility] [address] [place] [address] Dr. Maru Disla Urea nitrogen/Creatinine [Mass ratio] 29.4 mg/mg Normal [facility] Comment on above: Performed By: #### M ALBR #### [facility] [address] [place] [address] Dr. Maru Disla CBC AUTO DIFFon 04-07-2022 BASO # 0.0 103/ul Normal 0.0-0.1 [facility] Comment on above: Performed By: #### P OCGLUC #### [facility] [address] [place] [address] Dr. Maru Disla Basophils/100 WBC (Bld) 0.2 % Normal 0.2-2.0 [facility] Comment on above: Performed By: #### P OCGLUC #### [facility] [address] [place] [address] Dr. Maru Disla EO # 0.0 103/ul Normal 0.0-0.7 [facility] Comment on above: Performed By: #### P OCGLUC #### [facility] [address] [place] [address] Dr. Maru Disla Eosinophils/100 WBC (Bld) 0.0 % Critically low 0.9-7.0 [facility] Comment on above: Performed By: #### P OCGLUC #### [facility] [address] [place] [address] Dr. Maru Disla Erythrocyte distribution width (RBC) [Ratio] 13.6 % Normal 11.0-15.0 [facility] Comment on above: Performed By: #### P OCGLUC #### [facility] [address] [address] [address] Maru Disla Hematocrit (Bld) [Volume fraction] 48.1 % Critically high 36.0-48.0 [facility] Comment on above: Performed By: #### P OCGLUC #### [facility] [address] [address] [address] Maru Disla Hemoglobin (Bld) [Mass/Vol] 14.7 g/dL Normal 12.0-16.0 [facility] Comment on above: Performed By: #### P OCGLUC #### [facility] [address] [address] [address] Maru Disla IG # 0.16 10e3/ul Critically high 0.00-0.03 [facility] Comment on above: Performed By: #### P OCGLUC #### [facility] [address] [place] [address] Dr. Maru Disla IG % 0.6 % Critically high 0.0-0.5 [facility] Comment on above: Performed By: #### P OCGLUC #### [facility] [address] [address] [address] Maru Disla LYMPH # 1.0 103/ul Critically low 1.2-3.8 [facility] Comment on above: Performed By: #### P OCGLUC #### [facility] [address] [place] [address] Dr. Maru Disla Lymphocytes/100 WBC (Bld) 4.1 % Critically low 20.5-60.0 [facility] Comment on above: Performed By: #### P OCGLUC #### [facility] [address] [address] [address] Maru Disla MANUAL DIFF REQ NO Normal [facility] Comment on above: Performed By: #### P OCGLUC #### [facility] [address] [address] [address] Maru Disla MCH (RBC) [Entitic mass] 29.4 pg Normal 26.7-34.0 [facility] Comment on above: Performed By: #### P OCGLUC #### [facility] [address] [address] [address] Maru Disla MCHC (RBC) [Mass/Vol] 30.6 g/dL Normal 29.9-35.2 [facility] Comment on above: Performed By: #### P OCGLUC #### [facility] [address] [place] [address] Dr. Maru Disla MCV (RBC) [Entitic vol] 96.2 fL Normal 81.0-99.0 [facility] Comment on above: Performed By: #### P OCGLUC #### [facility] [address] [place] [address] Dr. Maru Disla MONO # 0.8 103/ul Normal 0.3-0.8 [facility] Comment on above: Performed By: #### P OCGLUC #### [facility] [address] [place] [address] Dr. Maru Disla Monocytes/100 WBC (Bld) 3.2 % Normal 1.7-12.0 [facility] Comment on above: Performed By: #### P OCGLUC #### [facility] [address] [place] [address] Dr. Maru Disla NEUT # 23.1 103/ul Critically high 1.4-6.5 [facility] Comment on above: Performed By: #### P OCGLUC #### [facility] [address] [place] [address] Dr. Maru Disla Neutrophils/100 WBC (Bld) 91.9 % Critically high 43.0-75.0 [facility] Comment on above: Performed By: #### P OCGLUC #### [facility] [address] [place] [address] Dr. Maru Disla Platelet mean volume (Bld) [Entitic vol] 10.5 fL Normal 9.5-13.5 [facility] Comment on above: Performed By: #### P OCGLUC #### [facility] [address] [place] [address] Dr. Maru Disla PLT 300 103/ul Normal 150-450 [facility] Comment on above: Performed By: #### P OCGLUC #### [facility] [address] [address] [address] Maru Disla RBC 5.00 106/ul Normal 4.20-5.40 [facility] Comment on above: Performed By: #### P OCGLUC #### [facility] [address] [address] [address] Maru Disla WBC 25.1 103/ul Critically high 4.0-11.0 [facility] Comment on above: Performed By: #### P OCGLUC #### [facility] [address] [address] [address] Maru Disla POINT OF CARE GLUCOSEon Glucose [Mass/Vol] 247 mg/dL Critically high [address] [facility] Comment on above: Performed By: #### B MP #### [facility] [address] [place] [address] Dr. Maru Disla Glucose [Mass/Vol] 182 mg/dL Critically high 74-106 [facility] Comment on above: Performed By: #### A BG #### [facility] [address] [address] [address] Maru Disla Glucose [Mass/Vol] 177 mg/dL Critically high [facility] Comment on above: Performed By: #### P OCGLUC #### [facility] [address] [place] [address] Dr. Maru Disla Glucose [Mass/Vol] 191 mg/dL Critically high [facility] Comment on above: Performed By: #### P OCGLUC #### [facility] [address] [address] [address] Maru Disla PROF CHEM 8 (BAS METB)on Anion gap [Moles/Vol] 11.4 mmol/L Normal [facility] Comment on above: Performed By: #### M ALBR #### [facility] [address] [place] [address] Dr. Maru Disla Calcium [Mass/Vol] 8.9 mg/dL Normal 8.5-10.1 [facility] Comment on above: Performed By: #### M ALBR #### [facility] [address] [address] [address] Maru Disla Chloride [Moles/Vol] 108 mmol/L Critically high 98-107 [facility] Comment on above: Performed By: #### M ALBR #### [facility] [address] [address] [address] Maru Disla CO2 [Moles/Vol] 27.9 mmol/L Normal 21.0-32.0 [facility] Comment on above: Performed By: #### M ALBR #### [facility] [address] [address] [address] Maru Disla Creatinine [Mass/Vol] 0.84 mg/dL Normal 0.55-1.02 [facility] Comment on above: Performed By: #### M ALBR #### [facility] [address] [place] [address] Dr. Maru Disla EGFR-AF UGANDAN >60 Normal >=60 [facility] Comment on above: Performed By: #### M ALBR #### [facility] [address] [address] [address] Maru Disla EGFR-NON AF UGANDAN >60 Normal >=60 [facility] Comment on above: Performed By: #### M ALBR #### [facility] [address] [address] [address] Maru Disla Glucose [Mass/Vol] 202 mg/dL Critically high 74-106 [facility] Comment on above: Performed By: #### M ALBR #### [facility] [address] [address] [address] Maru Disla Potassium [Moles/Vol] 4.3 mmol/L Normal 3.5-5.1 [facility] Comment on above: Performed By: #### M ALBR #### [facility] [address] [address] [address] Maru Disla Sodium [Moles/Vol] 143 mmol/L Normal 136-145 [facility] Comment on above: Performed By: #### M ALBR #### [facility] [address] [address] [address] Maru Disla Urea nitrogen [Mass/Vol] 26.0 mg/dL Critically high 7.0-18.0 [facility] Comment on above: Performed By: #### M ALBR #### [facility] [address] [place] [address] Dr. Maru Disla Urea nitrogen/Creatinine [Mass ratio] 31.0 mg/mg Normal [facility] Comment on above: Performed By: #### M ALBR #### [facility] [address] [place] [address] Dr. Maru Disla CBC AUTO DIFFon 04-06-2022 BASO # 0.0 103/ul Normal 0.0-0.1 [facility] Comment on above: Performed By: #### B MP #### [facility] [address] [place] [address] Dr. Maru Disla Basophils/100 WBC (Bld) 0.1 % Critically low 0.2-2.0 [facility] Comment on above: Performed By: #### B MP #### [facility] [address] [place] [address] Dr. Maru Disla EO # 0.0 103/ul Normal 0.0-0.7 [facility] Comment on above: Performed By: #### B MP #### [facility] [address] [place] [address] Dr. Maru Disla Eosinophils/100 WBC (Bld) 0.1 % Critically low 0.9-7.0 [facility] Comment on above: Performed By: #### B MP #### [facility] [address] [place] [address] Dr. Maru Disla Erythrocyte distribution width (RBC) [Ratio] 13.4 % Normal 11.0-15.0 [facility] Comment on above: Performed By: #### B MP #### [facility] [address] [place] [address] Dr. Maru Disla Hematocrit (Bld) [Volume fraction] 48.5 % Critically high 36.0-48.0 [facility] Comment on above: Performed By: #### B MP #### [facility] [address] [address] [address] Maru Disla Hemoglobin (Bld) [Mass/Vol] 15.5 g/dL Normal 12.0-16.0 [facility] Comment on above: Performed By: #### B MP #### [facility] [address] [address] [address] Maru Disla IG # 0.09 10e3/ul Critically high 0.00-0.03 [facility] Comment on above: Performed By: #### B MP #### [facility] [address] [address] [address] Maru Disla IG % 0.5 % Normal 0.0-0.5 [facility] Comment on above: Performed By: #### B MP #### [facility] [address] [address] [address] Maru Disla LYMPH # 0.9 103/ul Critically low 1.2-3.8 [facility] Comment on above: Performed By: #### B MP #### [facility] [address] [address] [address] Maru Disla Lymphocytes/100 WBC (Bld) 4.5 % Critically low 20.5-60.0 [facility] Comment on above: Performed By: #### B MP #### [facility] [address] [place] [address] Dr. Maru Disla MANUAL DIFF REQ NO Normal [facility] Comment on above: Performed By: #### B MP #### [facility] [address] [address] [address] Maru Disla MCH (RBC) [Entitic mass] 30.0 pg Normal 26.7-34.0 [facility] Comment on above: Performed By: #### B MP #### [facility] [address] [address] [address] Maru Disla MCHC (RBC) [Mass/Vol] 32.0 g/dL Normal 29.9-35.2 [facility] Comment on above: Performed By: #### B MP #### [facility] [address] [place] [address] Dr. Maru Disla MCV (RBC) [Entitic vol] 93.8 fL Normal 81.0-99.0 [facility] Comment on above: Performed By: #### B MP #### [facility] [address] [place] [address] Dr. Maru Disla MONO # 0.7 103/ul Normal 0.3-0.8 [facility] Comment on above: Performed By: #### B MP #### [facility] [address] [place] [address] Dr. Maru Disla Monocytes/100 WBC (Bld) 3.5 % Normal 1.7-12.0 [facility] Comment on above: Performed By: #### B MP #### [facility] [address] [place] [address] Dr. Maru Disla NEUT # 18.2 103/ul Critically high 1.4-6.5 [facility] Comment on above: Performed By: #### B MP #### [facility] [address] [place] [address] Dr. Maru Disla Neutrophils/100 WBC (Bld) 91.3 % Critically high 43.0-75.0 [facility] Comment on above: Performed By: #### B MP #### [facility] [address] [place] [address] Dr. Maru Disla Platelet mean volume (Bld) [Entitic vol] 11.2 fL Normal 9.5-13.5 [facility] Comment on above: Performed By: #### B MP #### [facility] [address] [place] [address] Dr. Maru Disla PLT 232 103/ul Normal 150-450 [facility] Comment on above: Performed By: #### B MP #### [facility] [address] [place] [address] Dr. Maru Disla RBC 5.17 106/ul Normal 4.20-5.40 [facility] Comment on above: Performed By: #### B MP #### [facility] [address] [place] [address] Dr. Maru Disla WBC 19.9 103/ul Critically high 4.0-11.0 [facility] Comment on above: Performed By: #### B MP #### [facility] [address] [address] [address] Maru Disla POINT OF CARE GLUCOSEon 11-0 Glucose [Mass/Vol] 199 mg/dL Critically high 74-106 [facility] Comment on above: Performed By: #### P OCGLUC #### [facility] [address] [address] [address] Maru Disla Glucose [Mass/Vol] 109 mg/dL Critically high -106 [facility] Comment on above: Performed By: #### A BG #### [facility] [address] [place] [address] Dr. Maru Disla Glucose [Mass/Vol] 253 mg/dL Critically high -106 [facility] Comment on above: Performed By: #### P OCGLUC #### [facility] [address] [place] [address] Dr. Maru Disla Glucose [Mass/Vol] 194 mg/dL Critically high -106 [facility] Comment on above: Performed By: #### B MP #### [facility] [address] [place] [address] Dr. Maru Disla PROF CHEM 8 (BAS METB)on Anion gap [Moles/Vol] 11.2 mmol/L Normal [facility] Comment on above: Performed By: #### B MP #### [facility] [address] [place] [address] Dr. Maru Disla Calcium [Mass/Vol] 8.8 mg/dL Normal 8.5-10.1 [facility] Comment on above: Performed By: #### B MP #### [facility] [address] [place] [address] Dr. Maru Disla Chloride [Moles/Vol] 105 mmol/L Normal 98-107 [facility] Comment on above: Performed By: #### B MP #### [facility] [address] [place] [address] Dr. Maru Disla CO2 [Moles/Vol] 26.8 mmol/L Normal 21.0-32.0 [facility] Comment on above: Performed By: #### B MP #### [facility] [address] [address] [address] Maru Disla Creatinine [Mass/Vol] 0.66 mg/dL Normal 0.55-1.02 [facility] Comment on above: Performed By: #### B MP #### [facility] [address] [address] [address] Maru Disla EGFR-AF UGANDAN >60 Normal >=60 [facility] Comment on above: Performed By: #### B MP #### [facility] [address] [place] [address] Dr. Maru Disla EGFR-NON AF UGANDAN >60 Normal >=60 [facility] Comment on above: Performed By: #### B MP #### [facility] [address] [address] [address] Maru Disla Glucose [Mass/Vol] 191 mg/dL Critically high 74-106 [facility] Comment on above: Performed By: #### B MP #### [facility] [address] [place] [address] Dr. Maru Disla Potassium [Moles/Vol] 5.0 mmol/L Normal 3.5-5.1 [facility] Comment on above: Performed By: #### B MP #### [facility] [address] [address] [address] Maru Disla Sodium [Moles/Vol] 138 mmol/L Normal 136-145 [facility] Comment on above: Performed By: #### B MP #### [facility] [address] [address] [address] Maru Disla Urea nitrogen [Mass/Vol] 21.0 mg/dL Critically high 7.0-18.0 [facility] Comment on above: Performed By: #### B MP #### [facility] [address] [address] [address] Maru Disla Urea nitrogen/Creatinine [Mass ratio] 31.8 mg/mg Normal [facility] Comment on above: Performed By: #### B MP #### [facility] [address] [address] [address] Maru Disla XR CHEST 2 Von [...] CORINE ANGELA Date: 2022-04-06 07:14 Normal [facility] BLOOD GASES BTYon 04-05-2022 02 MODE NASAL CANNULA Normal [facility] Comment on above: Performed By: #### A BG #### [facility] [address] [place] [address] Dr. Maru Disla ALLENS TEST Positive Normal [facility] Comment on above: Performed By: #### A BG #### [facility] [address] [address] [address] Maru [employer] Base excess Calc (Bld) [Moles/Vol] -1.6000 mmol/L Normal -2.0-2.0 [facility] Comment on above: Performed By: #### A BG #### [facility] [address] [address] [address] Maru Disla BIPAP PRESSURE Normal [facility] Comment on above: Performed By: #### A BG #### [facility] [address] [address] [address] Maru Disla CPAP Normal [facility] Comment on above: Performed By: #### A BG #### [facility] [address] [place] [address] Dr. Maru Disla FIO2 Normal [facility] Comment on above: Performed By: #### A BG #### [facility] [address] [place] [address] Dr. Maru Disla HCO3 (Bld) [Moles/Vol] 24.0 mmol/L Normal 22.0-26.0 [facility] Comment on above: Performed By: #### A BG #### [facility] [address] [place] [address] Dr. Maru Disla LPM 2 [facility] Comment on above: Performed By: #### A BG #### [facility] [address] [place] [address] Dr. Maru Disla MINUTE VOLUME Normal [facility] Comment on above: Performed By: #### A BG #### [facility] [address] [place] [address] Dr. Maru Disla Oxygen (Bld) [Partial pressure] 56.1 mm[Hg] Critically low 80.0-100.0 [facility] Comment on above: Performed By: #### A BG #### [facility] [address] [place] [address] Dr. Maru Disla Oxygen saturation in Blood 89.9 % Critically low 95.0-100.0 [facility] Comment on above: Performed By: #### A BG #### [facility] [address] [place] [address] Dr. Maru Disla PCO2 43.3 mmHg Normal 35.0-45.0 [facility] Comment on above: Performed By: #### A BG #### [facility] [address] [place] [address] Dr. Maru Disla PEEP [facility] Comment on above: Performed By: #### A BG #### [facility] [facility] [address] [place] [address] Dr. Maru Disla pH (Bld) 7.352 [pH] Normal 7.350-7.450 [facility] Comment on above: Performed By: #### A BG #### [facility] [address] [place] [address] Dr. Maru Disla PIP [facility] Comment on above: Performed By: #### A BG #### [facility] [address] [place] [address] Dr. Maru Disla PS [facility] Comment on above: Performed By: #### A BG #### [facility] [address] [place] [address] Dr. Maru Disla PUNCTURE SITE LR [facility] Comment on above: Performed By: #### A BG #### [facility] [address] [place] [address] Dr. Maru Disla RATE [facility] Comment on above: Performed By: #### A BG #### [facility] [address] [place] [address] Dr. Maru Disla VENT MODE [facility] Comment on above: Performed By: #### A BG #### [facility] [address] [place] [address] Dr. Maru Disla [place] [facility] Comment on above: Performed By: #### A BG #### [facility] [address] [place] [address] Dr. Maru Disla BNPon 04-05-2022 Natriuretic peptide B (Bld) [Mass/Vol] 471.0 pg/mL Normal <=900.0 [facility] Comment on above: Performed By: #### P OCGLUC #### [facility] [address] [place] [address] Dr. Maru Disla CBC AUTO DIFFon 04-05-2022 BASO # 0.0 103/ul Normal 0.0-0.1 [facility] Comment on above: Performed By: #### B MP #### [facility] [address] [place] [address] Dr. Maru Disla Basophils/100 WBC (Bld) 0.3 % Normal 0.2-2.0 [facility] Comment on above: Performed By: #### B MP #### [facility] [address] [place] [address] Dr. Maru Disla EO # 0.0 103/ul Normal 0.0-0.7 [facility] Comment on above: Performed By: #### B MP #### [facility] [address] [place] [address] Dr. Maru Disla Eosinophils/100 WBC (Bld) 0.0 % Critically low 0.9-7.0 [facility] Comment on above: Performed By: #### B MP #### [facility] [address] [place] [address] Dr. Maru Disla Erythrocyte distribution width (RBC) [Ratio] 13.2 % Normal 11.0-15.0 [facility] Comment on above: Performed By: #### B MP #### [facility] [address] [place] [address] Dr. Maru Disla Hematocrit (Bld) [Volume fraction] 52.3 % Critically high 36.0-48.0 [facility] Comment on above: Performed By: #### B MP #### [facility] [address] [place] [address] Dr. Maru Disla Hemoglobin (Bld) [Mass/Vol] 16.6 g/dL Critically high 12.0-16.0 [facility] Comment on above: Performed By: #### B MP #### [facility] [address] [place] [address] Dr. Maru Disla IG # 0.05 10e3/ul Critically high 0.00-0.03 [facility] Comment on above: Performed By: #### B MP #### [facility] [address] [place] [address] Dr. Maru Disla IG % 0.4 % Normal 0.0-0.5 [facility] Comment on above: Performed By: #### B MP #### [facility] [address] [place] [address] Dr. Maru Disla LYMPH # 1.5 103/ul Normal 1.2-3.8 [facility] Comment on above: Performed By: #### B MP #### [facility] [address] [place] [address] Dr. Maru Disla Lymphocytes/100 WBC (Bld) 10.7 % Critically low 20.5-60.0 [facility] Comment on above: Performed By: #### B MP #### [facility] [address] [address] [address] Maru Disla MANUAL DIFF REQ NO Normal [facility] Comment on above: Performed By: #### B MP #### [facility] [address] [place] [address] Dr. Maru Disla MCH (RBC) [Entitic mass] 29.7 pg Normal 26.7-34.0 [facility] Comment on above: Performed By: #### B MP #### [facility] [address] [place] [address] Dr. Maru Disla MCHC (RBC) [Mass/Vol] 31.7 g/dL Normal 29.9-35.2 [facility] Comment on above: Performed By: #### B MP #### [facility] [address] [place] [address] Dr. Maru Disla MCV (RBC) [Entitic vol] 93.6 fL Normal 81.0-99.0 [facility] Comment on above: Performed By: #### B MP #### [facility] [address] [place] [address] Dr. Maru Disla MONO # 1.5 103/ul Critically high 0.3-0.[address] [facility] Comment on above: Performed By: #### B MP #### [facility] [address] [place] [address] Dr. Maru Disla Monocytes/100 WBC (Bld) 11.0 % Normal 1.7-12.0 [facility] Comment on above: Performed By: #### B MP #### [facility] [address] [place] [address] Dr. Maru Disla NEUT # 10.8 103/ul Critically high 1.4-6.5 [facility] Comment on above: Performed By: #### B MP #### [facility] [address] [place] [address] Dr. Maru Disla Neutrophils/100 WBC (Bld) 77.6 % Critically high 43.0-75.0 [facility] Comment on above: Performed By: #### B MP #### [facility] [address] [place] [address] Dr. Maru Disla Platelet mean volume (Bld) [Entitic vol] 10.1 fL Normal 9.5-13.5 [facility] Comment on above: Performed By: #### B MP #### [facility] [address] [place] [address] Dr. Maru Disla PLT 315 103/ul Normal 150-450 [facility] Comment on above: Performed By: #### B MP #### [facility] [address] [place] [address] Dr. Maru Disla RBC 5.59 106/ul Critically high 4.20-5.40 [facility] Comment on above: Performed By: #### B MP #### [facility] [address] [place] [address] Dr. Maru Disla WBC 13.9 103/ul Critically high 4.0-11.0 [facility] Comment on above: Performed By: #### B MP #### [facility] [address] [place] [address] Dr. Maru Disla CULTURE BLOODon 04-05-2022 Microscopic examination of blood, culture Culture Observations: NO GROWTH AT 5 DAYS. Normal [facility] Comment on above: Performed By: #### B MP #### [facility] [address] [place] [address] Dr. Maru Disla [facility]on SARS-CoV-2 (COVID-19) RNA NICOLETTE+probe Ql (Unsp spec) Not detected Normal NOT DETECTED [facility] Comment on above: Result Comment: When diagnostic [...] for this test is supported by the [employer] and Human Service's declaration that [...] used). Performed By: #### M ALBR #### [facility] [address] [place] [address] Dr. Maru Disla INFLUENZA A AND B AGon 04-05 INFLUENZA A AG Negative Normal NEGATIVE SEE COMMENT [facility] Comment on above: Performed By: #### P OCGLUC #### [facility] [address] [place] [address] Dr. Maru Disla INFLUENZA B AG Negative Normal NEGATIVE SEE COMMENT [facility] Comment on above: Performed By: #### P OCGLUC #### [facility] [address] [place] [address] Dr. Maru Disla INTERNAL CONTROLS Within Normal Limits Normal Wi thin Normal Limits [facility] Comment on above: Performed By: #### P OCGLUC #### [facility] [address] [place] [address] Dr. Maru Disla LACTATE/LACTIC ACIDon 2021 Lactate [Moles/Vol] 3.1 mmol/L Critically high 0.4-1.9 [facility] Comment on above: Performed By: #### L ACT #### [facility] [address] [place] [address] Dr. Maru Disla Lactate [Moles/Vol] 3.1 mmol/L Critically high 0.4-1.9 [facility] Comment on above: Performed By: #### B MP #### [facility] [address] [place] [address] Dr. Maru Disla POINT OF CARE GLUCOSEon Glucose [Mass/Vol] 290 mg/dL Critically high 74-106 [facility] Comment on above: Performed By: #### M ALBR #### [facility] [address] [place] [address] Dr. Maru Disla Glucose [Mass/Vol] 309 mg/dL Critically high 74-106 [facility] Comment on above: Performed By: #### A BG #### [facility] [address] [address] [address] Maru Disla Glucose [Mass/Vol] 289 mg/dL Critically high 74-106 [facility] Comment on above: Performed By: #### P OCGLUC #### [facility] [address] [address] [address] Maru Disla Glucose [Mass/Vol] 325 mg/dL Critically high 74-106 [facility] Comment on above: Performed By: #### M ALBR #### [facility] [address] [address] [address] Maru Disla PROF 14(COMP METB)on 022 Albumin [Mass/Vol] 3.3 g/dL Critically low 3.4-5.0 [facility] Comment on above: Performed By: #### P OCGLUC #### [facility] [address] [place] [address] Dr. Maru Disla Albumin/Globulin [Mass ratio] 0.7 {ratio} Normal [facility] Comment on above: Performed By: #### P OCGLUC #### [facility] [address] [place] [address] Dr. Maru Disla ALP [Catalytic activity/Vol] 105 U/L Normal 46-116 [facility] Comment on above: Performed By: #### P OCGLUC #### [facility] [address] [place] [address] Dr. Maru Disla ALT [Catalytic activity/Vol] 15 U/L Normal 14-59 [facility] Comment on above: Performed By: #### P OCGLUC #### [facility] [address] [place] [address] Dr. Maru Disla Anion gap [Moles/Vol] 13.2 mmol/L Normal [facility] Comment on above: Performed By: #### P OCGLUC #### [facility] [address] [address] [address] Maru Disla AST [Catalytic activity/Vol] 12 U/L Critically low 15-37 [facility] Comment on above: Performed By: #### P OCGLUC #### [facility] [address] [address] [address] Maru Disla Bilirubin [Mass/Vol] 0.4 mg/dL Normal 0.2-1.0 [facility] Comment on above: Performed By: #### P OCGLUC #### [facility] [address] [address] [address] Maru Disla Calcium [Mass/Vol] 8.8 mg/dL Normal 8.5-10.1 [facility] Comment on above: Performed By: #### P OCGLUC #### [facility] [address] [address] [address] Maru Disla Chloride [Moles/Vol] 101 mmol/L Normal 98-107 [facility] Comment on above: Performed By: #### P OCGLUC #### [facility] [address] [address] [address] Maru Disla CO2 [Moles/Vol] 26.0 mmol/L Normal 21.0-32.0 [facility] Comment on above: Performed By: #### P OCGLUC #### [facility] [address] [address] [address] Maru Disla Creatinine [Mass/Vol] 1.03 mg/dL Critically high 0.55-1.02 [facility] Comment on above: Performed By: #### P OCGLUC #### [facility] [address] [address] [address] Maru Disla EGFR-AF UGANDAN >60 Normal >=60 [facility] Comment on above: Performed By: #### P OCGLUC #### [facility] [address] [address] [address] Maru Disla EGFR-NON AF UGANDAN 54 mL/min/1.73m2 Critically low >=60 [facility] Comment on above: Performed By: #### P OCGLUC #### [facility] [address] [address] [address] Maru Disla Globulin (S) [Mass/Vol] 4.5 g/dL Normal [facility] Comment on above: Performed By: #### P OCGLUC #### [facility] [address] [address] [address] Maru Disla Glucose [Mass/Vol] 264 mg/dL Critically high 74-106 [facility] Comment on above: Performed By: #### P OCGLUC #### [facility] [address] [address] [address] Maru Disla Potassium [Moles/Vol] 4.2 mmol/L Normal 3.5-5.1 [facility] Comment on above: Performed By: #### P OCGLUC #### [facility] [address] [address] [address] Maru Disla Protein [Mass/Vol] 7.8 g/dL Normal 6.4-8.2 [facility] Comment on above: Performed By: #### P OCGLUC #### [facility] [address] [address] [address] Maru Disla Sodium [Moles/Vol] 136 mmol/L Normal 136-145 [facility] Comment on above: Performed By: #### P OCGLUC #### [facility] [address] [address] [address] Maru Disla Urea nitrogen [Mass/Vol] 14.0 mg/dL Normal 7.0-18.0 [facility] Comment on above: Performed By: #### P OCGLUC #### [facility] [address] [address] [address] Maru Disla Urea nitrogen/Creatinine [Mass ratio] 13.6 mg/mg Normal [facility] Comment on above: Performed By: #### P OCGLUC #### [facility] [address] [address] [address] Maru Disla TROPONIN, HIGH SENSITIVITYon 04-05-2022 HSTROP 10.5 pg/mL Normal 4.0-51.3 [facility] Comment on above: Result Comment: CUT- OFF POINTS HAVE BEEN ESTABLISHED BASED ON THE FOURTH UNIVERSAL DEFINITIONS OF MYOCARDIAL INFARCTION. THE UPPER REFERENCE LIMIT (URL) OF TROPONIN, DEFINED THE 99TH PERCENTILE OF cTnI DISTRIBUTION IN A REFERENCE POPULATION, HAS BEEN CONFIRMED THE DECISION THRESHOLD FOR SD DIAGNOSIS. Performed By: #### A BG #### [facility] [address] [address] [address] Maru Disla XR CHEST 1 Von [...] by: YECENIA MONTERO Date: 2022-04-05 06:51 Normal [facility] Vital Signs Date Time Vital Sign Value Performing Clinician Facility 05-28-2024 11:24-0500 Body height 167.6 cm Maira Victor Manuel STEAM CLEANING MACHINE OPERATOR Work Phone: [facility] 05-28-2024 11:24-0500 Body mass index (BMI) [Ratio] 32.83 kg/m2 Maira Victor Manuel STEAM CLEANING MACHINE OPERATOR Work Phone: [facility] 05-28-2024 11:24-0500 Body temperature 98.1 [degF] Maira Victor Manuel STEAM CLEANING MACHINE OPERATOR Work Phone: [facility] 05-28-2024 11:24-0500 Body weight 92.26 kg Maira Victor Manuel STEAM CLEANING MACHINE OPERATOR Work Phone: [facility] 05-28-2024 11:24-0500 Diastolic blood pressure 66 mm[Hg] Maira Victor Manuel STEAM CLEANING MACHINE OPERATOR Work Phone: [facility] 05-28-2024 11:24-0500 Heart rate 73 /min Maira Victor Manuel STEAM CLEANING MACHINE OPERATOR Work Phone: [facility] 05-28-2024 11:24-0500 Respiratory rate 22 /min Maira Victor Manuel STEAM CLEANING MACHINE OPERATOR Work Phone: [facility] 05-28-2024 11:24-0500 SaO2% (BldA) [Mass fraction] 92 % Maira Rush STEAM CLEANING MACHINE OPERATOR Work Phone: [facility] 05-28-2024 11:24-0500 Systolic blood pressure 110 mm[Hg] Maira Lainezz STEAM CLEANING MACHINE OPERATOR Work Phone: [facility] 05-19-2024 14:16-0500 Body height 167.6 cm Mairatessa Lainezz STEAM CLEANING MACHINE OPERATOR Work Phone: [facility] 05-19-2024 14:16-0500 Body mass index (BMI) [Ratio] 33.77 kg/m2 Mairatessa Nettlesholz STEAM CLEANING MACHINE OPERATOR Work Phone: [facility] 05-19-2024 14:16-0500 Body temperature 98.71 [degF] Mairatessa Nettlesholz STEAM CLEANING MACHINE OPERATOR Work Phone: [facility] 05-19-2024 14:16-0500 Body weight 94.89 kg Mairatessa Lainezz STEAM CLEANING MACHINE OPERATOR Work Phone: [facility] 05-19-2024 14:16-0500 Diastolic blood pressure 66 mm[Hg] Maira Yoonholz STEAM CLEANING MACHINE OPERATOR Work Phone: [facility] 05-19-2024 14:16-0500 Heart rate 71 /min Maira Yoonholz STEAM CLEANING MACHINE OPERATOR Work Phone: [facility] 05-19-2024 14:16-0500 Respiratory rate 18 /min Maira Yoonholz STEAM CLEANING MACHINE OPERATOR Work Phone: [facility] 05-19-2024 14:16-0500 SaO2% (BldA) [Mass fraction] 93 % Maira Yoonholz STEAM CLEANING MACHINE OPERATOR Work Phone: [facility] 05-19-2024 14:16-0500 Systolic blood pressure 120 mm[Hg] Maira Yoonholz STEAM CLEANING MACHINE OPERATOR Work Phone: [facility] 05-06-2024 13:32-0500 Body height 167.6 cm Mairatessa Nettlesholz STEAM CLEANING MACHINE OPERATOR Work Phone: [facility] 05-06-2024 13:32-0500 Body mass index (BMI) [Ratio] 33.77 kg/m2 Maira Yoonholz STEAM CLEANING MACHINE OPERATOR Work Phone: [facility] 05-06-2024 13:32-0500 Body temperature 97.81 [degF] Maira Aichholz STEAM CLEANING MACHINE OPERATOR Work Phone: [facility] 05-06-2024 13:32-0500 Body weight 94.89 kg Maira Aichholz STEAM CLEANING MACHINE OPERATOR Work Phone: [facility] 05-06-2024 13:32-0500 Diastolic blood pressure 76 mm[Hg] Maira Aichholz STEAM CLEANING MACHINE OPERATOR Work Phone: [facility] 05-06-2024 13:32-0500 Heart rate 73 /min Maira Aichholz STEAM CLEANING MACHINE OPERATOR Work Phone: [facility] 05-06-2024 13:32-0500 SaO2% (BldA) [Mass fraction] 97 % Maira Aichholz STEAM CLEANING MACHINE OPERATOR Work Phone: [facility] 05-06-2024 13:32-0500 Systolic blood pressure 138 mm[Hg] Maira Aichholz STEAM CLEANING MACHINE OPERATOR Work Phone: [facility] 04-22-2024 09:23-0500 Body height 167.6 cm Maira Aichholz STEAM CLEANING MACHINE OPERATOR Work Phone: [facility] 04-22-2024 09:23-0500 Body mass index (BMI) [Ratio] 32.44 kg/m2 Maira Aichholz STEAM CLEANING MACHINE OPERATOR Work Phone: [facility] 04-22-2024 09:23-0500 Body temperature 98.1 [degF] Maira Aichholz STEAM CLEANING MACHINE OPERATOR Work Phone: [facility] 04-22-2024 09:23-0500 Body weight 91.17 kg Maira Aichholz STEAM CLEANING MACHINE OPERATOR Work Phone: [facility] 04-22-2024 09:23-0500 Diastolic blood pressure 78 mm[Hg] Maira Aichholz STEAM CLEANING MACHINE OPERATOR Work Phone: [facility] 04-22-2024 09:23-0500 Heart rate 68 /min Maira Aichholz STEAM CLEANING MACHINE OPERATOR Work Phone: [facility] 04-22-2024 09:23-0500 Respiratory rate 20 /min Maira Nettlesdominic STEAM CLEANING MACHINE OPERATOR Work Phone: [facility] 04-22-2024 09:23-0500 SaO2% (BldA) [Mass fraction] 95 % Maira Nettlesvagerson STEAM CLEANING MACHINE OPERATOR Work Phone: [facility] 04-22-2024 09:23-0500 Systolic blood pressure 122 mm[Hg] Maira Rush STEAM CLEANING MACHINE OPERATOR Work Phone: [facility] 04-21-2024 14:21-0500 Body height 167.6 cm Felton Allison MD Work Phone: [facility] 04-21-2024 14:21-0500 Body mass index (BMI) [Ratio] 33.09 kg/m2 Felton Allison MD Work Phone: [facility] 04-21-2024 14:21-0500 Body weight 92.99 kg Felton Allison MD Work Phone: [facility] 04-21-2024 14:21-0500 Diastolic blood pressure 72 mm[Hg] Felton Allison MD Work Phone: [facility] 04-21-2024 14:21-0500 Heart rate 77 /min Felton Allison MD Work Phone: [facility] 04-21-2024 14:21-0500 Respiratory rate 18 /min Felton Allison MD Work Phone: [facility] 04-21-2024 14:21-0500 Systolic blood pressure 112 mm[Hg] Felton Allison MD Work Phone: [facility] 03-20-2024 09:07-0400 Body temperature 96.91 [degF] Malik Ramos RESIDENTIAL YOUTH COUNSELOR-[employer]ER[employer] PURCHASE AND SALE CLERK Work Phone: [facility] 03-20-2024 09:07-0400 Diastolic blood pressure 48 mm[Hg] Malik Ramos RESIDENTIAL YOUTH COUNSELOR-[employer]OKERAGE PURCHASE AND SALE CLERK Work Phone: [facility] 03-20-2024 09:07-0400 Heart rate 76 /min Malik Ramos APRN-BROKERAGE PURCHASE AND SALE CLERK Work Phone: [facility] 03-20-2024 09:07-0400 Respiratory rate 16 /min Malik Ramos RESIDENTIAL YOUTH COUNSELOR-[employer]OKERAGE PURCHASE AND SALE CLERK Work Phone: [facility] 03-20-2024 09:07-0400 Systolic blood pressure 100 mm[Hg] Malik Ramos RESIDENTIAL YOUTH COUNSELOR-BROKERAGE PURCHASE AND SALE CLERK Work Phone: [facility] 03-11-2024 10:25-0400 Body height 167.6 cm Maira Aichholz STEAM CLEANING MACHINE OPERATOR Work Phone: [facility] 03-11-2024 10:25-0400 Body mass index (BMI) [Ratio] 33.28 kg/m2 Maira Aichholz STEAM CLEANING MACHINE OPERATOR Work Phone: [facility] 03-11-2024 10:25-0400 Body temperature 98.1 [degF] Maira Aichholz STEAM CLEANING MACHINE OPERATOR Work Phone: [facility] 03-11-2024 10:25-0400 Body weight 93.53 kg Maira Aichholz STEAM CLEANING MACHINE OPERATOR Work Phone: [facility] 03-11-2024 10:25-0400 Diastolic blood pressure 80 mm[Hg] Maira Aichholz STEAM CLEANING MACHINE OPERATOR Work Phone: [facility] 03-11-2024 10:25-0400 Heart rate 71 /min Maira Aichholz STEAM CLEANING MACHINE OPERATOR Work Phone: [facility] 03-11-2024 10:25-0400 Respiratory rate 18 /min Maira Aichholz STEAM CLEANING MACHINE OPERATOR Work Phone: [facility] 03-11-2024 10:25-0400 SaO2% (BldA) [Mass fraction] 96 % Maira Aichholz STEAM CLEANING MACHINE OPERATOR Work Phone: [facility] 03-11-2024 10:25-0400 Systolic blood pressure 122 mm[Hg] Maira Aichholz STEAM CLEANING MACHINE OPERATOR Work Phone: [facility] 02-25-2024 10:56-0400 Body height 167.6 cm Maira Yoonholz STEAM CLEANING MACHINE OPERATOR Work Phone: [facility] 02-25-2024 10:56-0400 Body mass index (BMI) [Ratio] 33.51 kg/m2 Maira Aichholz STEAM CLEANING MACHINE OPERATOR Work Phone: [facility] 02-25-2024 10:56-0400 Body temperature 98.1 [degF] Maira Yoonholz STEAM CLEANING MACHINE OPERATOR Work Phone: [facility] 02-25-2024 10:56-0400 Body weight 94.17 kg Maira Yoonholz STEAM CLEANING MACHINE OPERATOR Work Phone: [facility] 02-25-2024 10:56-0400 Diastolic blood pressure 76 mm[Hg] Maira Aichholz STEAM CLEANING MACHINE OPERATOR Work Phone: [facility] 02-25-2024 10:56-0400 Heart rate 77 /min Maira Yoonholz STEAM CLEANING MACHINE OPERATOR Work Phone: [facility] 02-25-2024 10:56-0400 Respiratory rate 19 /min Maira Yoonholz STEAM CLEANING MACHINE OPERATOR Work Phone: [facility] 02-25-2024 10:56-0400 SaO2% (BldA) [Mass fraction] 97 % Maira Yoonholz STEAM CLEANING MACHINE OPERATOR Work Phone: [facility] 02-25-2024 10:56-0400 Systolic blood pressure 122 mm[Hg] Maira Yoonholz STEAM CLEANING MACHINE OPERATOR Work Phone: [facility] 02-17-2024 11:07-0400 Body height 167.6 cm Maira Kenahholz STEAM CLEANING MACHINE OPERATOR Work Phone: [facility] 02-17-2024 11:07-0400 Body mass index (BMI) [Ratio] 34.19 kg/m2 Maira Kenahholz STEAM CLEANING MACHINE OPERATOR Work Phone: [facility] 02-17-2024 11:07-0400 Body temperature 98.49 [degF] Maira Lainezz STEAM CLEANING MACHINE OPERATOR Work Phone: [facility] 02-17-2024 11:07-0400 Body weight 96.07 kg Mairatessa Nettlesholz STEAM CLEANING MACHINE OPERATOR Work Phone: [facility] 02-17-2024 11:07-0400 Diastolic blood pressure 82 mm[Hg] Maira Yoonholz STEAM CLEANING MACHINE OPERATOR Work Phone: [facility] 02-17-2024 11:07-0400 Heart rate 78 /min Maira Yoonholz STEAM CLEANING MACHINE OPERATOR Work Phone: [facility] 02-17-2024 11:07-0400 Respiratory rate 19 /min Maira Yoonholz STEAM CLEANING MACHINE OPERATOR Work Phone: [facility] 02-17-2024 11:07-0400 SaO2% (BldA) [Mass fraction] 98 % Maira Yoonholz STEAM CLEANING MACHINE OPERATOR Work Phone: [facility] 02-17-2024 11:07-0400 Systolic blood pressure 118 mm[Hg] Maira Yoonholz STEAM CLEANING MACHINE OPERATOR Work Phone: [facility] 07-18-2023 14:27-0500 Body height 167.6 cm Maira Yoonholz STEAM CLEANING MACHINE OPERATOR Work Phone: [facility] 07-18-2023 14:27-0500 Body mass index (BMI) [Ratio] 38.29 kg/m2 Maira Yoonholz STEAM CLEANING MACHINE OPERATOR Work Phone: [facility] 07-18-2023 14:27-0500 Body temperature 98.01 [degF] Maira Yoonholz STEAM CLEANING MACHINE OPERATOR Work Phone: [facility] 07-18-2023 14:27-0500 Body weight 107.59 kg Maira Yoonholz STEAM CLEANING MACHINE OPERATOR Work Phone: [facility] 07-18-2023 14:27-0500 Diastolic blood pressure 78 mm[Hg] Maira Aichholz STEAM CLEANING MACHINE OPERATOR Work Phone: [facility] 07-18-2023 14:27-0500 Heart rate 79 /min Maira Victor Manuel STEAM CLEANING MACHINE OPERATOR Work Phone: [facility] 07-18-2023 14:27-0500 Respiratory rate 19 /min Maira Kenamelindadominic STEAM CLEANING MACHINE OPERATOR Work Phone: [facility] 07-18-2023 14:27-0500 SaO2% (BldA) [Mass fraction] 97 % Mairatessa Escuderomelindadominic STEAM CLEANING MACHINE OPERATOR Work Phone: [facility] 07-18-2023 14:27-0500 Systolic blood pressure 142 mm[Hg] Maira Rush STEAM CLEANING MACHINE OPERATOR Work Phone: [facility] Healthcare Encounters Encounter Date Encounter Type Care Provider Facility Start: 05-28-2024 End: 05-28-2024 Refill Maira Rush STEAM CLEANING MACHINE OPERATOR Work Phone: [facility] Comment on above: COPD mixed type (CMS /HCC) Start: 05-28-2024 End: 05-28-2024 Office outpatient visit 25 minutes Maira Rush STEAM CLEANING MACHINE OPERATOR Work Phone: [facility] Comment on above: Oxygen dependent (Pr imary Dx); COPD mixed type (CMS/HCC); Obesity (BMI 30-39.9); COPD with acute exacerbation (CMS/HCC) Start: 05-28-2024 End: 05-28-2024 Orders Only Maira Rush STEAM CLEANING MACHINE OPERATOR Work Phone: [facility] Comment on above: Lung nodule, multipl e (Primary Dx); COPD mixed type (CMS/HCC) 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 (CMS/HCC) (Primary Dx) Start: 05-25-2024 End: 05-25-2024 Clinisync Result Encounter Generic External Data Provider [facility] External Department Unsolicited Start: 05-25-2024 End: 05-25-2024 Clinisync Result Encounter Generic External Data Provider [facility] External Department Unsolicited Start: 05-19-2024 End: 05-19-2024 Bamboo flowsheet Maira Rush STEAM CLEANING MACHINE OPERATOR Work Phone: [facility] Start: 05-19-2024 End: 05-19-2024 Bamboo flowsheet Maira Rush STEAM CLEANING MACHINE OPERATOR Work Phone: [facility] Start: 05-19-2024 End: 05-19-2024 Office outpatient visit 15 minutes Maira Rush STEAM CLEANING MACHINE OPERATOR Work Phone: [facility] Comment on above: Right wrist pain (Pr imary Dx); Obesity (BMI 30-39.9) Start: 05-19-2024 End: 05-19-2024 ambulatory MAIRA AICHHOLZ Not Available Start: 05-18-2024 End: 05-18-2024 Orders Only Maira Rush STEAM CLEANING MACHINE OPERATOR Work Phone: [facility] Comment on above: Lung nodule, multipl e (Primary Dx) Start: 05-06-2024 End: 05-06-2024 Bamboo flowsheet Maira Rush STEAM CLEANING MACHINE OPERATOR Work Phone: [facility] Start: 05-06-2024 End: 05-06-2024 Bamboo flowsheet Maira Victor Manuel STEAM CLEANING MACHINE OPERATOR Work Phone: [facility] Start: 05-06-2024 End: 05-06-2024 Office outpatient visit 25 minutes Maira Rush STEAM CLEANING MACHINE OPERATOR Work Phone: [facility] Comment on above: COPD mixed type (CMS /HCC) (Primary Dx); SANTO (obstructive sleep apnea); Lung nodule, multiple; Community acquired pneumonia, unspecified laterality; Primary hypertension (CMS/HCC); Atrial fibrillation, unspecified type (CMS/HCC); Type 2 diabetes mellitus without complication, with long-term current use of insulin (CMS/HCC); Tobacco user; Needs flu shot Start: 05-06-2024 End: 05-06-2024 ambulatory MAIRA AICHHOLZ Not Available Start: 04-22-2024 End: 04-22-2024 Patient encounter status Maira Rush STEAM CLEANING MACHINE OPERATOR Work Phone: [facility] Start: 04-22-2024 End: 04-22-2024 Periodic preventive med est patient 40-64yrs Maira Rush NP Work Phone: [facility] Comment on above: Encounter for wellne ss examination (Primary Dx); Osteoporosis, unspecified osteoporosis type, unspecified pathological fracture presence (CMS/HCC); Open wound of buttock, unspecified laterality, initial encounter; Type 2 diabetes mellitus without complication, with long-term current use of insulin (CMS/HCC); Obesity (BMI 30-39.9); Tobacco user; Anxiety and depression (CMS/HCC); Type 2 diabetes mellitus with diabetic neuropathy, with long-term current use of insulin (CMS/HCC); COPD mixed type (CMS/HCC); Diabetic polyneuropathy associated with type 2 diabetes mellitus (CMS/HCC); Gastroesophageal reflux disease, unspecified whether esophagitis present; Mixed hyperlipidemia (CMS/HCC); Primary hypertension (CMS/HCC); Edema of extremities; Lung nodule, multiple; Lymphadenopathy, generalized; Vitamin D deficiency; Oxygen dependent; Community acquired pneumonia, unspecified laterality Start: 04-22-2024 End: 04-22-2024 ambulatory MAIRA RUSH Not Available Start: 04-21-2024 End: 04-21-2024 Office outpatient visit 25 minutes Felton Allison MD Work Phone: [facility] Comment on above: Type 2 diabetes gayatri itus with hyperglycemia, with long-term current use of insulin (CMS/HCC) (Primary Dx); Encounter for dietary consultation; Vitamin D deficiency; Primary hypertension (CMS/HCC); Hyperlipemia, mixed (CMS/HCC); Insulin long-term use (CMS/HCC); Class 1 obesity due to excess calories without serious comorbidity with body mass index (BMI) of 33.0 to 33.9 in adult Start: 04-21-2024 End: 04-21-2024 ambulatory FELTON ALLISON Not Available Start: 04-09-2024 End: 04-09-2024 Clinisync Result Encounter Maira Rush NP Work Phone: [facility] External Department Unsolicited Start: 04-09-2024 End: 04-09-2024 Clinisync Result Encounter Maira Rush NP Work Phone: [facility] External [facility] Unsolicited Start: 04-09-2024 End: 04-09-2024 Telephone encounter Maira Rush STEAM CLEANING MACHINE OPERATOR Work Phone: [facility] Start: 03-20-2024 End: 03-20-2024 Office outpatient new 20 minutes Malik Ramos RESIDENTIAL YOUTH COUNSELOR-BROKERAGE PURCHASE AND SALE CLERK Work Phone: [facility] Comment on above: Type 2 diabetes gayatri itus with other skin ulcer, with long-term current use of insulin ([facility]-HCC) (Primary Dx); Stage III pressure ulcer of sacral region ([facility]); Open wound Start: 03-20-2024 End: 03-20-2024 ambulatory [facility] Start: 03-18-2024 End: 03-18-2024 Refill Maira Victor Manuel STEAM CLEANING MACHINE OPERATOR Work Phone: [facility] Comment on above: COPD mixed type (CMS /HCC) (Primary Dx); URI, acute COPD mixed type ([facility] /[facility]); URI, acute Start: 03-16-2024 End: 03-16-2024 Refill Maira Victor Manuel STEAM CLEANING MACHINE OPERATOR Work Phone: [facility] Comment on above: Primary hypertension ([facility]/HCC) (Primary Dx); Edema of extremities Start: 03-11-2024 End: 03-11-2024 Bamboo flowsheet Maira Victor Manuel STEAM CLEANING MACHINE OPERATOR Work Phone: [facility] Start: 03-11-2024 End: 03-11-2024 Bamboo flowsheet Maira Victor Manuel STEAM CLEANING MACHINE OPERATOR Work Phone: [facility] Start: 03-11-2024 End: 03-11-2024 Office outpatient visit 25 minutes Maira Rush STEAM CLEANING MACHINE OPERATOR Work Phone: [facility] Comment on above: Viral upper respirat ory tract infection (Primary Dx); Tobacco user; Open wound; Obesity (BMI 30-39.9); Type 2 diabetes mellitus without complication, with long-term current use of insulin ([facility]) Start: 03-11-2024 End: 03-11-2024 ambulatory MAIRA AICHHOLZ Not Available Start: 02-25-2024 End: 02-25-2024 Bamboo flowsheet Maira Aichholz STEAM CLEANING MACHINE OPERATOR Work Phone: [facility] Start: 02-25-2024 End: 02-25-2024 Bamboo flowsheet Maira Aichholz STEAM CLEANING MACHINE OPERATOR Work Phone: [facility] Start: 02-25-2024 End: 02-25-2024 Office outpatient visit 25 minutes Maira Aichholz STEAM CLEANING MACHINE OPERATOR Work Phone: [facility] Comment on above: Open wound of buttoc k, unspecified laterality, initial encounter (Primary Dx); Type 2 diabetes mellitus without complication, with long-term current use of insulin (CMS/[facility]); Obesity (BMI 30-39.9); Dizziness and giddiness Start: 02-25-2024 End: 02-25-2024 ambulatory MAIRA AICHHOLZ Not Available Start: 02-24-2024 End: 02-26-2024 Clinisync Result Encounter Generic External Data Provider [facility] External Department Unsolicited Start: 02-24-2024 End: 02-26-2024 Clinisync Result Encounter Generic External Data Provider [facility] External Department Unsolicited Start: 02-17-2024 End: 02-17-2024 Bamboo flowsheet Maira Aichholz STEAM CLEANING MACHINE OPERATOR Work Phone: [facility] Start: 02-17-2024 End: 02-17-2024 Bamboo flowsheet Maira Aichholz STEAM CLEANING MACHINE OPERATOR Work Phone: [facility] Start: 02-17-2024 End: 02-17-2024 Office outpatient visit 25 minutes Maira Aichholz STEAM CLEANING MACHINE OPERATOR Work Phone: [facility] Comment on above: Type 2 diabetes gayatri itus with hyperglycemia (CMS/HCC) (Primary Dx); Primary hypertension (CMS/[facility]); Edema of extremities; Type 2 diabetes mellitus without complication, with long-term current use of insulin (CMS/[facility]); Vitamin D deficiency; Tobacco user; Dizziness and giddiness; Atrial fibrillation, unspecified type ([facility]); COPD mixed type ([facility]) Start: 02-17-2024 End: 02-17-2024 ambulatory MAIRA AICHHOLZ Not Available Start: 01-23-2024 End: 01-23-2024 ambulatory CHAPITO DAMICO [facility] Start: 01-16-2024 End: 01-22-2024 ambulatory YVES GIL [facility] Start: 01-16-2024 End: 01-22-2024 Emergency department patient visit CHIKI TERRY [facility] Start: 01-16-2024 End: 01-22-2024 [facility] Start: 11-19-2023 End: 11-19-2023 ambulatory MAIRA AICHHOLZ Not Available Start: 10-16-2023 End: 10-16-2023 ambulatory MAIRA AICHHOLZ Not Available Start: 07-18-2023 End: 07-18-2023 Office outpatient visit 25 minutes Maira Aichholz STEAM CLEANING MACHINE OPERATOR Work Phone: [facility] Comment on above: Primary hypertension ([facility]) (Primary Dx); Type 2 diabetes mellitus with diabetic neuropathy, with long-term current use of insulin ([facility]); Gastroesophageal reflux disease, unspecified whether esophagitis present; Vitamin D deficiency; Type 2 diabetes mellitus with complication, without long-term current use of insulin ([facility]); Mixed hyperlipidemia ([facility]); Encounter for screening mammogram for malignant neoplasm of breast; SANTO (obstructive sleep apnea); COPD mixed type ([facility]); Anxiety and depression ([facility]); COVID; Open wound; Morbid obesity with body mass index (BMI) of 40.0 to 49.9 ([facility]) Start: 07-18-2023 End: 07-18-2023 ambulatory MAIRA AICHHOLZ Not Available Start: 07-18-2023 Bamboo flowsheet Maira Aichholz STEAM CLEANING MACHINE OPERATOR Work Phone: [facility] Start: 07-18-2023 Bamboo flowsheet Maira Aichholz STEAM CLEANING MACHINE OPERATOR Work Phone: [facility] Start: 01-08-2023 End: 01-08-2023 ambulatory [facility] Start: 10-02-2022 End: 10-03-2022 ambulatory BROKERAGE PURCHASE AND SALE CLERK MAIRA RUSH Facility:[facility] Start: 08-09-2022 End: 08-10-2022 ambulatory BROKERAGE PURCHASE AND SALE CLERK MARIA RUSH Facility:[facility] Start: 07-12-2022 ambulatory [facility] Start: 06-21-2022 End: 06-22-[address] CORINE ANGELA Facility:[facility] Start: 06-20-2022 End: 06-21-2022 ambulatory DMITRY RUSH Facility:[facility] Start: 06-07-2022 End: 06-07-2022 ambulatory Robert Hatr Facility:[facility] Start: 04-05-2022 End: 04-09-2022 Evaluation and management of inpatient DR TERI BLOCK . Facility:[facility] Start: 11-23-2021 End: 11-23-2021 ambulatory BROKERAGE PURCHASE AND SALE CLERK MAIRATessa ESCUDEROMelindaVAGerson Facility:[facility]1 Start: 09-30-2018 End: 10-01-2018 Patient encounter procedure DEFAULT PHYSICIAN Facility:[facility] Start: 09-15-2018 End: 09-16-2018 Patient encounter procedure DEFAULT PHYSICIAN Facility:[facility] Procedures Date Procedure Procedure Detail Performing Clinician Start: 05-25-2024 ALL RENAL FUNCTION PANEL Generic External Data Provider Start: 04-21-2024 Gluc bld gluc mntr d ev cleared fda spec home use Felton Allison MD Work Phone: Start: 04-09-2024 [facility] UA (CLEAN/CATCH) MICROSCOPIC IF INDICATE Maira Rush STEAM CLEANING MACHINE OPERATOR Work Phone: Start: 02-24-2024 Bacteria identified in Urine by Culture Generic External Data Provider Start: 08-05-2023 Mammography Maira santiago STEAM CLEANING MACHINE OPERATOR Work Phone: Start: 06-19-2022 Mammography Maira santiago STEAM CLEANING MACHINE OPERATOR Work Phone: Start: 02-14-2015 Colonoscopy Maira santiago STEAM CLEANING MACHINE OPERATOR Work Phone: Plan of Treatment Date Care Activity Detail Author Start: 11-24-2031 DTaP,Tdap and Td Vaccines (3 - Td or Tdap) DTaP,Tdap and Td Vaccines (3 - Td or Tdap) [facility] Start: 05-25-2025 Urine screening for protein Diabetes: Urine Protein Screening [facility] Start: 03-20-2025 Tobacco Screening Tobacco Screening [facility] Start: 02-14-2025 Screening for malignant neoplasm of colon [facility] Start: 02-06-2025 Adult BMI Screening Adult BMI Screening [facility] Start: 11-26-2024 End: 05-28-2025 CT Chest W contrast IV CT chest w IV contrast Imaging Routine Lung nodule, multiple Expected: 11/26/2024 (Approximate), Expires: 05/28/2025 [facility] Work Phone: Comment on above: Expected: 11/26/2024 (Approximate), Expi res: 05/28/2025 Start: 08-06-2024 End: 08-06-2024 Patient encounter procedure 08/06/2024 9:20 AM EST Office Visit [facility] [address] [place] [address] Maira Rush NP [address] [place] [address] [facility] Start: 08-04-2024 Screening for malignant neoplasm of breast Mammogram [facility] Start: 08-04-2024 Urine screening for protein Diabetes: Urine Protein Screening [facility] Start: 07-23-2024 Hemoglobin A1c measurement Diabetes: Hemoglobin A1C [facility] Start: 07-22-2024 Hemoglobin A1c measurement Diabetes: Hemoglobin A1C [facility] Start: 07-21-2024 End: 07-21-2024 Patient encounter procedure 07/21/2024 2:20 PM EST [facility] [address] [place] [phone] Felton Allison MD [address] [place] [address] [facility] Start: 07-21-2024 End: 07-21-2024 Patient encounter procedure 07/21/2024 10:40 AM EST Office Visit [facility] [address] [place] [phone] Felton Allison MD [address] [place] [address] [facility] Start: 07-09-2024 Hemoglobin A1c measurement Diabetes: Hemoglobin A1C [facility] Start: 05-28-2024 End: 05-28-2025 Creatinine [Mass/volume] in Serum or Plasma Creatinine Lab Routine 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 (CMS/HCC) Expected: 05/28/2024 (Approximate), Expires: 05/28/2025 [facility] Comment on above: Expected: 05/28/2024 (Approximate), Expi res: 05/28/2025 Start: 05-28-2024 End: 05-28-2025 CT Abdomen and Pelvis W contrast IV CT abdomen pelvis w IV contrast Imaging Routine 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 (CMS/HCC) Expected: 05/28/2024 (Approximate), Expires: 05/28/2025 [facility] Work Phone: Comment on above: Expected: 05/28/2024 (Approximate), Expi res: 05/28/2025 Start: 05-19-2024 End: 05-19-2024 Patient encounter procedure [facility] Comment on above: Obesity (BMI 30-39.9) (Primary Dx); COPD mixed type (CMS/HCC) Start: 05-18-2024 End: 05-18-2025 Creatinine [Mass/volume] in Serum or Plasma Creatinine Lab Routine Lung nodule, multiple Expected: 05/18/2024 (Approximate), Expires: 05/18/2025 [facility] Work Phone: Comment on above: Expected: 05/18/2024 (Approximate), Expi res: 05/18/2025 Start: 05-06-2024 End: 05-06-2024 Patient encounter procedure 05/06/2024 1:20 PM EST [facility] [address] [place] [phone] Maira Rush, STEAM CLEANING MACHINE OPERATOR [address] [place] [phone] SANTO (obstructive sleep apnea) (Primary Dx); Lung nodule, multiple; COPD mixed type (CMS/HCC); Community acquired pneumonia, unspecified laterality; Primary hypertension (CMS/HCC); Atrial fibrillation, unspecified type (CMS/HCC); Type 2 diabetes mellitus without complication, with long-term current use of insulin (CMS/HCC); Tobacco user [facility] Comment on above: SANTO (obstructive sleep apnea) [...] Lymphadenopathy, generalized Expected: 04/22/2024 (Approximate), Expires: 04/22/2025 [facility] Work Phone: Comment on above: Expected: 04/22/2024 (Approximate), Expi res: 04/22/2025 Start: 04-22-2024 End: 04-22-2024 Patient encounter procedure 04/22/2024 9:20 AM EST Office Visit [facility] [address] [place] [phone] Maira Rush, STEAM CLEANING MACHINE OPERATOR [address] [place] [phone] [facility] Start: 04-21-2024 End: 04-21-2024 Patient encounter procedure 04/21/2024 2:40 PM EST Office Visit [facility] [address] [place] [phone] Felton Allison MD [address] [place] [address] [facility] Start: 04-21-2024 End: 04-21-2025 25-hydroxyvitamin D3 [Mass/volume] in Serum or Plasma Vitamin D 25 hydroxy Total Lab Routine Type 2 diabetes mellitus with hyperglycemia, with long-term current use of insulin ([facility]) Expected: 04/21/2024 (Approximate), Expires: 04/21/2025 [facility] Comment on above: Expected: 04/21/2024 (Approximate), Expi res: 04/21/2025 Start: 04-21-2024 End: 04-21-2025 C-peptide C-peptide Lab Routine Type 2 diabetes mellitus with hyperglycemia, with long-term current use of insulin (CMS/HCC) Expected: 04/21/2024 (Approximate), Expires: 04/21/2025 [facility] Work Phone: Comment on above: Expected: 04/21/2024 (Approximate), Expi res: 04/21/2025 Start: 04-21-2024 End: 04-21-2024 Chart abstracting 04/21/2024 Abstract [facility] [address] [place] [phone] Felton Allison MD [address] [place] [address] [facility] Start: 04-21-2024 End: 04-21-2025 Lipid 1996 panel - Serum or Plasma Lipid panel Lab Routine Type 2 diabetes mellitus with hyperglycemia, with long-term current use of insulin (CMS/HCC) Expected: 04/21/2024 (Approximate), Expires: 04/21/2025 [facility] Comment on above: Expected: 04/21/2024 (Approximate), Expi res: 04/21/2025 Start: 04-21-2024 End: 04-21-2025 Microalbumin/Creatinine panel in random Urine Microalbumin / creatinine urine ratio Lab Routine Type 2 diabetes mellitus with hyperglycemia, with long-term current use of insulin (CMS/HCC) Expected: 04/21/2024 (Approximate), Expires: 04/21/2025 [facility] Comment on above: Expected: 04/21/2024 (Approximate), Expi res: 04/21/2025 Start: 04-21-2024 End: 04-21-2025 Renal function panel Renal function panel Lab Routine Type 2 diabetes mellitus with hyperglycemia, with long-term current use of insulin (CMS/HCC) Expected: 04/21/2024 (Approximate), Expires: 04/21/2025 [facility] Comment on above: Expected: 04/21/2024 (Approximate), Expi res: 04/21/2025 Start: 04-03-2024 End: 04-03-2024 Patient encounter procedure 04/03/2024 9:20 AM EDT Office Visit [facility] [address] [place] [address] Malik Ramos, RESIDENTIAL YOUTH COUNSELOR-BROKERAGE PURCHASE AND SALE CLERK [address] [place] [id number] Alley Lemus, RESIDENTIAL YOUTH COUNSELOR-BROKERAGE PURCHASE AND SALE CLERK [address] [place] [address] [facility] Start: 03-11-2024 End: 03-11-2024 Patient encounter procedure [facility] Comment on above: Arrived Start: 02-25-2024 End: 02-25-2024 Patient encounter procedure 02/25/2024 11:00 AM EDT Office Visit [facility] [address] [place] [address] Maira Rush NP [address] [place] [address] Arrived [facility] Comment on above: Arrived Start: 02-17-2024 End: 02-16-2025 CBC W Auto Differential panel - Blood CBC and differential Lab Routine Dizziness and giddiness Expected: 02/17/2024 (Approximate), Expires: 02/16/2025 [facility] Comment on above: Expected: 02/17/2024 (Approximate), Expi res: 02/16/2025 Start: 02-17-2024 End: 02-16-2025 Comprehensive metabolic 2000 panel - Serum or Plasma Comprehensive metabolic panel Lab Routine Type 2 diabetes mellitus with hyperglycemia (CMS/HCC) Primary hypertension (CMS/[facility]) Edema of extremities Type 2 diabetes mellitus without complication, with long-term current use of insulin ([facility]) Vitamin D deficiency Dizziness and giddiness Expected: 02/17/2024 (Approximate), Expires: 02/16/2025 [facility] Comment on above: Expected: 02/17/2024 (Approximate), Expi res: 02/16/2025 Start: 02-17-2024 End: 02-16-2025 Hemoglobin A1c/Hemoglobin.total in Blood Hemoglobin A1c Lab Routine Type 2 diabetes mellitus with hyperglycemia (CMS/HCC) Expected: 02/17/2024 (Approximate), Expires: 02/16/2025 [facility] Comment on above: Expected: 02/17/2024 (Approximate), Expi res: 02/16/2025 Start: 02-17-2024 End: 02-16-2025 Magnesium [Mass/volume] in Serum or Plasma Magnesium Lab Routine Dizziness and giddiness Expected: 02/17/2024 (Approximate), Expires: 02/16/2025 [facility] Work Phone: Comment on above: Expected: 02/17/2024 (Approximate), Expi res: 02/16/2025 Start: 02-17-2024 End: 02-16-2025 Urinalysis complete panel - Urine Urinalysis with reflex microscopic (clean catch) Lab Routine Type 2 diabetes mellitus with hyperglycemia (CMS/HCC) Primary hypertension (CMS/HCC) Tobacco user Dizziness and giddiness Expected: 02/17/2024 (Approximate), Expires: 02/16/2025 [facility] Comment on above: Expected: 02/17/2024 (Approximate), Expi res: 02/16/2025 Start: 02-02-2024 COVID-19 Vaccine ( season) COVID-19 Vaccine ( season) [place] [facility] Start: 02-02-2024 Influenza vaccination Influenza Vaccine [facility] Start: 11-05-2023 Hemoglobin A1c measurement Diabetes: Hemoglobin A1C [facility] Start: 10-16-2023 End: 10-16-2023 Patient encounter procedure 10/16/2023 9:20 AM EDT Office Visit [facility] [address] [place] [phone] Maira Rush NP [address] [place] [phone] [facility] Start: 08-16-2023 End: 09-15-2024 MG Breast - bilateral Screening Bilateral screening mammogram Imaging Routine Encounter for screening mammogram for malignant neoplasm of breast Expected: 08/16/2023 (Approximate), Expires: 09/15/2024 [facility] Comment on above: Expected: 08/16/2023 (Approximate), Expi res: 09/15/2024 Start: 08-10-2023 Urine screening for protein Diabetes: Urine Protein Screening [facility] Start: 07-18-2023 End: 07-18-2023 Patient encounter procedure 07/18/2023 2:20 PM EST Office Visit [facility] [address] [place] [phone] Maira Rush NP [address] [place] [phone] Type 2 diabetes mellitus with diabetic neuropathy, with long-term current use of insulin (CMS/HCC) (Primary Dx); Primary hypertension (CMS/HCC); Gastroesophageal reflux disease, unspecified whether esophagitis present; Vitamin D deficiency; Type 2 diabetes mellitus with complication, without long-term current use of insulin (CMS/HCC); Mixed hyperlipidemia (CMS/HCC); Encounter for screening mammogram for malignant neoplasm of breast [facility] Comment on above: Type 2 diabetes mellitus [...] D deficiency Expected: 07/18/2023 (Approximate), Expires: 07/18/2024 [facility] Comment on above: Expected: 07/18/2023 (Approximate), Expi res: 07/18/2024 Start: 07-18-2023 End: 07-18-2024 CBC W Auto Differential panel - Blood CBC and differential Lab Routine Gastroesophageal reflux disease, unspecified whether esophagitis present Expected: 07/18/2023 (Approximate), Expires: 07/18/2024 [facility] Work Phone: Comment on above: Expected: 07/18/2023 (Approximate), Expi res: 07/18/2024 Start: 07-18-2023 End: 07-18-2024 Comprehensive metabolic 2000 panel - Serum or Plasma Comprehensive metabolic panel Lab Routine Primary hypertension (CMS/HCC) Type 2 diabetes mellitus with complication, without long-term current use of insulin (CMS/HCC) Mixed hyperlipidemia (CMS/HCC) Expected: 07/18/2023 (Approximate), Expires: 07/18/2024 [facility] Comment on above: Expected: 07/18/2023 (Approximate), Expi res: 07/18/2024 Start: 07-18-2023 End: 07-18-2024 Hemoglobin A1c/Hemoglobin.total in Blood Hemoglobin A1c Lab Routine Type 2 diabetes mellitus with complication, without long-term current use of insulin (CMS/HCC) Expected: 07/18/2023 (Approximate), Expires: 07/18/2024 [facility] Comment on above: Expected: 07/18/2023 (Approximate), Expi res: 07/18/2024 Start: 07-18-2023 End: 07-18-2024 Lipid 1996 panel - Serum or Plasma Lipid panel Lab Routine Mixed hyperlipidemia ([facility]) Expected: 07/18/2023 (Approximate), Expires: 07/18/2024 [facility] Comment on above: Expected: 07/18/2023 (Approximate), Expi res: 07/18/2024 Start: 07-18-2023 End: 07-18-2024 Microalbumin/Creatinine panel in random Urine Microalbumin / creatinine, urine ratio Lab Routine Type 2 diabetes mellitus with complication, without long-term current use of insulin ([facility]) Expected: 07/18/2023 (Approximate), Expires: 07/18/2024 [facility] Comment on above: Expected: 07/18/2023 (Approximate), Expi res: 07/18/2024 Start: 07-18-2023 End: 07-18-2024 Urinalysis complete panel - Urine Urinalysis with reflex microscopic (clean catch) Lab Routine Type 2 diabetes mellitus with complication, without long-term current use of insulin ([facility]) Expected: 07/18/2023 (Approximate), Expires: 07/18/2024 [facility] Comment on above: Expected: 07/18/2023 (Approximate), Expi res: 07/18/2024 Start: 06-19-2023 Screening for malignant neoplasm of breast Mammogram [facility] Start: 02-01-2023 Influenza vaccination Influenza Vaccine (#1) [facility] Start: 01-07-2019 Hemoglobin A1c measurement Diabetes: Hemoglobin A1C [facility] Start: 2009 Administration of varicella zoster vaccine Zoster (Shingles) Vaccine (1 of 2) [facility] Start: 1989 Screening for malignant neoplasm of cervix [facility] Start: 1980 Screening for malignant neoplasm of cervix Pap Smear [facility] Start: 1977 Adult BMI Follow Up Plan Adult BMI Follow Up Plan [facility] Start: 1977 Diabetic foot examination Diabetic Foot Exam [facility] Start: 1971 Depression Screening Depression Screening [facility] Start: 1969 Glaucoma screening Diabetes: Retinopathy Screening [facility] Start: 1959 Glaucoma screening Diabetic Ophthalmology Exam [facility] Start: 1959 Screening for malignant neoplasm of colon [facility] Start: 1959 Tobacco Counseling Tobacco Counseling [facility] Immunizations Immunization Date Immunization Notes Care Provider Afia gant 05-06-2024 influenza, high dose seasonal, preservative-free Maira Aichholz STEAM CLEANING MACHINE OPERATOR Work Phone: [facility] 04-05-2022 influenza, injectabl e, quadrivalent, preservative free Maira Aichholz STEAM CLEANING MACHINE OPERATOR Work Phone: [facility] 04-05-2022 pneumococcal polysaccharide vaccine, 23 valent Maira Aichholz STEAM CLEANING MACHINE OPERATOR Work Phone: [facility] 04-05-2022 influenza virus vacc ine, unspecified formulation Maira Aichholz STEAM CLEANING MACHINE OPERATOR Work Phone: [facility] 11-23-2021 diphtheria, tetanus toxoids and pertussis vaccine Maira Aichholz STEAM CLEANING MACHINE OPERATOR Work Phone: [facility] 03-24-2020 tetanus toxoid, redu joaquin diphtheria toxoid, and acellular pertussis vaccine, adsorbed Maira Aichholz STEAM CLEANING MACHINE OPERATOR Work Phone: [facility] 03-25-2017 Influenza, injectabl e, Madin Arline Canine Kidney, preservative free, quadrivalent Maira Aichholz STEAM CLEANING MACHINE OPERATOR Work Phone: [facility] Healthcare Payers Date Payer Category Payer Medicaid [employer] [employer] [id number] 2017-Present [address] [place] [address] [id number] 2017 Medicaid (Managed Care) [employer] [id number] 2003 Medicaid HMO [employer] [id number] 1959 Unknown [id number] 2.16.840.1.229246.3.579.2. 647 1959 Unknown [id number] 2.16.840.1.964979.3.579.2. 647 1959 Unknown [id number] 2.16.840.1.711206.3.579.2. 593 1959 Unknown [id number] 2.16.840.1.756464.3.579.2. 593 1959 Unknown [id number] 2.16.840.1.174642.3.579.2. 593 1959 Unknown [id number] 2.16.840.1.557187.3.579.2. 593 1959 Unknown [id number] 2.16.840.1.997102.3.579.2. 593 1959 Unknown [id number] 2.16.840.1.723123.3.579.2. 593 1959 Unknown [id number] 2.16.840.1.889577.3.579.2. 593 1959 Unknown [id number] 2.16.840.1.964819.3.579.2. 1286 1959 Unknown [id number] 2.16.840.1.228920.3.579.2. 1285 1959 Unknown [id number] 2.16.840.1.357048.3.579.2. 128 1959 Unknown [id number] 2.16.840.1.419048.3.579.2. 128 1959 Unknown [id number] 2.16.840.1.216492.3.579.2. 128 1959 Unknown [id number] 2.16.840.1.128387.3.579.2. 1285 1959 Unknown [id number] 2.16.840.1.121962.3.579.2. 1258 1959 Unknown [id number] 2.16.840.1.452847.3.579.2. 1258 1959 Unknown [id number] 2.16.840.1.145966.3.579.2. 1258 1959 Unknown [id number] 2.16.840.1.653311.3.579.2. 1258 1959 Unknown [id number] 2.16.840.1.595443.3.579.2. 1258 1959 Unknown [id number] 2.16.840.1.001261.3.579.2. 1258 1959 Unknown [id number] 2.16.840.1.624252.3.579.2. 1258 1959 Unknown [id number] 2.16.840.1.919151.3.579.2. 1258 1959 Unknown [id number] 2.16.840.1.260473.3.579.2. 1258 1959 Unknown [id number] 2.16.840.1.062767.3.579.2. 1259 1959 Unknown [id number] 2.16.840.1.415429.3.579.2. 1259 1959 Unknown [id number] Unknown Social History Date Type Detail Facility Start: 07-15-2023 Tobacco smoking status NHIS Ex-smoker [facility] Start: 06-03-1982 End: 04-03-2022 History of tobacco use Current smoker [facility] Start: 06-03-1982 End: 04-03-2022 History of tobacco use Cigarette Smoker [facility] Start: 07-15-2023 End: 10-16-2023 Cigarettes smoked current (pack per day) - Reported 0.5 [facility] Start: 07-18-2023 End: 05-28-2024 Alcohol intake Ex-drinker (finding) [facility] Start: 06-29-2023 End: 10-16-2023 Tobacco use panel [facility] Start: 07-15-2023 Alcohol Comment coffee 1-2 cups per day [facility] Start: 1960 Sex Assigned At Not on file [facility] Start: 04-03-2022 Tobacco smoking status [facility] Smokes tobacco daily [facility] Start: 03-20-2024 Tobacco use and exposure Smokeless tobacco non-user [facility] Has the Message Missile, or Vim[employer] threatened to shut off services in your home in past 12Mo [employer] In the past 12 month s, has lack of transportation kept you from medical appointments or from getting medications? [employer] [facility] Start: 01-06-2015 Sex Female (finding) [facility] Medical Equipment Procedure Code Equipment Code Equipment Origin al Text Equipment Identifier Dates [id number] Start: 06-24-2023 Goals Date Patient Goal Desired [...] Narrative Associated Problem(s): COPD with acute exacerbation ([facility]) Recent hospitalization with pneumonia in the last few months Is on home O2, also with nebs at home, states no difference in her wheezing with or without the neb UTD on flu shot, not on COVID Had CT chest on 05/25/24 but did not have sxs at that time Her is in a penitentiary, possible exposure to something there Differentials: atypical [...] 2 times daily with meals Continuous Glucose Radiocommunications Technician (FreeStyle Julisa 2 [place]) device 1 kit, Does not apply, Every 14 days Continuous Glucose Radiocommunications Technician (FreeStyle Julisa 2 [place]) device USE DIRECTED Continuous Glucose Sensor (FreeStyle Julias 2 Sensor) misc 1 kit, Does not [...] day (morning and mid-day) Sure Comfort [place] 32G X 4 MM misc 1 each, [...] necrosis or infection, unspecified Anxiety and depression (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 ([facility]) Medical non-compliance 07/18/2023 Morbid obesity with body mass index (BMI) of 40.0 to 49.9 ([facility]) 07/18/2023 Neuropathy, diabetic ([facility]) 07/18/2023 SANTO (obstructive sleep apnea) 07/18/2023 Osteoporosis ([facility]) 07/18/2023 Seasonal allergies 07/18/2023 Tobacco user 07/18/2023 Type 2 diabetes mellitus with complication, without long-term current use of insulin ([facility]) 07/18/2023 Urge and stress incontinence 07/18/2023 Vitamin [...] ASSESSMENT AND PLAN: documented in this encounter [facility] 05-28-2024 History of Presen t illness Narrative Associated Problem(s): 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 (CMS/HCC) Noted on past CT scans, felt to be adenoma, however is getting larger in size Will order CT scan adrenal gland protocol documented in this encounter [facility] 05-19-2024 History of Presen t illness Narrative [...] D-3) 50 mcg, Oral, Daily Continuous Glucose Radiocommunications Technician (FreeStyle Julisa 2 [place]) device 1 kit, Does not apply, Every 14 days Continuous Glucose Radiocommunications Technician (FreeStyle Julisa 2 [place]) device USE DIRECTED Continuous Glucose Sensor (FreeStyle [...] day (morning and mid-day) Sure Comfort [place] 32G X 4 MM misc 1 each, [...] necrosis or infection, unspecified Anxiety and depression ([facility]) 07/18/2023 Atrial fibrillation ([facility]) 07/18/2023 Body mass index (BMI) 40.0-44.9, adult ([facility]) COPD mixed type ([facility]) 05/23/2023 Dietary counseling and surveillance Drug-induced acute pancreatitis 07/18/2023 Edema of extremities 07/18/2023 Essential (primary) hypertension ([facility]) 12/04/2010 GERD (gastroesophageal reflux disease) 07/18/2023 HLD (hyperlipidemia) ([facility]) 07/18/2023 Hx of being hospitalized 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 ([facility]) Medical non-compliance 07/18/2023 Morbid obesity with body mass index (BMI) of 40.0 to 49.9 ([facility]) 07/18/2023 Neuropathy, diabetic ([facility]) 07/18/2023 SANTO (obstructive sleep apnea) 07/18/2023 Osteoporosis ([facility]) 07/18/2023 Seasonal allergies 07/18/2023 Tobacco user 07/18/2023 Type 2 diabetes mellitus with complication, without long-term current use of insulin ([facility]) 07/18/2023 Urge and stress incontinence 07/18/2023 Vitamin [...] as well as stress from S.O. in penitentiary Right wrist pain - Primary No hx [...] as well as stress from [place]O. in penitentiary documented in this encounter [facility] 05-19-2024 Instructions Maira Rush NP - 05/19/2024 2:00 PM EST Cosmo wrap to right wrist for [address] ice to affected area 3-4 times daily for 20 minutes each Follow up if not better documented in this encounter [facility] 05-06-2024 History of Presen t illness Narrative [...] D-3) 50 mcg, Oral, Daily Continuous Glucose Radiocommunications Technician (FreeStyle Julisa 2 [place]) device 1 kit, Does not apply, Every 14 days Continuous Glucose Radiocommunications Technician (FreeStyle Julisa 2 [place]) device USE DIRECTED Continuous Glucose Sensor (FreeStyle [...] day (morning and mid-day) Sure Comfort [place] 32G X 4 MM misc 1 each, [...] necrosis or infection, unspecified Anxiety and depression ([facility]) 07/18/2023 Atrial fibrillation ([facility]) 07/18/2023 Body mass index (BMI) 40.0-44.9, adult ([facility]) COPD mixed type ([facility]) 05/23/2023 Dietary counseling and surveillance Drug-induced acute pancreatitis 07/18/2023 Edema of extremities 07/18/2023 Essential (primary) hypertension ([facility]) 12/04/2010 GERD (gastroesophageal reflux disease) 07/18/2023 HLD (hyperlipidemia) ([facility]) 07/18/2023 Hx of being hospitalized 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 ([facility]) Medical non-compliance 07/18/2023 Morbid obesity with body mass index (BMI) of 40.0 to 49.9 ([facility]) 07/18/2023 Neuropathy, diabetic ([facility]) 07/18/2023 SANTO (obstructive sleep apnea) 07/18/2023 Osteoporosis ([facility]) 07/18/2023 Seasonal allergies 07/18/2023 Tobacco user 07/18/2023 Type 2 diabetes mellitus with complication, without long-term current use of insulin ([facility]) 07/18/2023 Urge and stress incontinence 07/18/2023 Vitamin [...] Continue inhalers Fu with pulmonologoist Primary hypertension ([facility]) Please check blood pressure daily and record DASH diet Limit caffeine Take medication as directed Contact office if chest pain, pressure, dizziness, shortness of breath, swelling legs Recommend slow position changes Current meds: b dania and arb SANTO (obstructive sleep apnea) Non compliance , has been instructed in the past on importance of need to wear PAP Not wearing risk stroke, SD, Atrial fibrillation ([facility]) Cont current meds and anticoagulation Tobacco user The patient has been advised of the risks of continued smoking: stroke, SD, all forms of cancer, lung disease, and [...] complication, with long-term current use of insulin ([facility]) Check blood sugars daily, notify if <70 [...] Needs fu CT due now, order to [facility] CAP (community acquired pneumonia) Finished atb Breathing: improved Fever:none No productive cough Other Visit Diagnoses Needs flu shot Relevant Orders Flu vaccine, high dose seasonal, PF ([id number]) (Fluzone High Dose) (Completed) Associated Problem(s): Tobacco user The patient has been advised of the risks of continued smoking: stroke, SD, all forms of cancer, lung disease, and [...] complication, with long-term current use of insulin ([facility]) Check blood sugars daily, notify if <70 [...] arb and asa Associated Problem(s): Atrial fibrillation ([facility]) Cont current meds and anticoagulation Associated Problem(s): Primary hypertension ([facility]) Please check blood pressure daily and record DASH diet Limit caffeine Take medication as directed Contact office if chest pain, pressure, dizziness, shortness of breath, swelling legs Recommend slow position changes Current meds: b dania and arb Associated Problem(s): CAP (community acquired pneumonia) Finished atb Breathing: improved Fever:none No productive cough Associated Problem(s): COPD mixed type ([facility]) Quit smoking Continue inhalers Fu with pulmonologoist Associated Problem(s): Lung nodule, multiple Needs fu CT due now, order to [facility] Associated Problem(s): SANTO (obstructive sleep apnea) Non compliance , has been instructed in the past on importance of need to wear PAP Not wearing risk stroke, SD, documented in this encounter [facility] 05-06-2024 Instructions Maira Rush NP - 05/06/2024 1:20 PM EST Diabetes: continue with dr allison, please call and schedule a diabetic eye exam Log Operations Coordinator: please call to schedule an appointment Mammogram: I will fax order to [facility] documented in this encounter [facility] 04-22-2024 History of Presen t illness Narrative [...] with long-term current use of insulin (CMS/HCC) Recommend tight blood sugar control Pt is [...] Hospitalizations in the last year: yes Specialist: Drafter Apprentice [facility] Kalina Torres for Endo/DM, Log Operations Coordinator: Janet-has not seen in a while Recent [...] being taken. She does not see a accounts receivable associate.Eye exam is not current. SUBJECTIVE: MEDICATIONS: Current [...] D-3) 50 mcg, Oral, Daily Continuous Glucose Radiocommunications Technician (FreeStyle Julisa 2 [place]) device Continuous Glucose Radiocommunications Technician (FreeStyle Julisa 2 [place]) device 1 kit, Does not apply, Every [...] day (morning and mid-day) Sure Comfort [place] 32G X 4 MM misc 1 each, [...] necrosis or infection, unspecified Anxiety and depression (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 ([facility]) Medical non-compliance 07/18/2023 Morbid obesity with body mass index (BMI) of 40.0 to 49.9 ([facility]) 07/18/2023 Neuropathy, diabetic ([facility]) 07/18/2023 SANTO (obstructive sleep apnea) 07/18/2023 Osteoporosis ([facility]) 07/18/2023 Seasonal allergies 07/18/2023 Tobacco user 07/18/2023 Type 2 diabetes mellitus with complication, without long-term current use of insulin ([facility]) 07/18/2023 Urge and stress incontinence 07/18/2023 Vitamin [...] Items Addressed This Visit COPD mixed type ([facility]) Quit smoking Continue inhalers Fu with pulmonologoist Relevant Medications albuterol (2.5 MG/3ML) 0.083% nebulizer solution tiotropium (Spiriva Respimat) 2.5 MCG/ACT inhaler Other Relevant Orders CT chest w IV contrast Primary hypertension ([facility]) Please check blood pressure daily and record DASH diet Limit caffeine Take medication as directed Contact office if chest pain, pressure, dizziness, shortness of breath, swelling legs Recommend slow position changes Relevant Medications spironolactone (Aldactone) 25 MG tablet losartan (Cozaar) 100 MG tablet Type 2 diabetes mellitus with diabetic neuropathy, with long-term current use of insulin ([facility]) Recommend tight blood sugar control Relevant Medications [...] pantoprazole (ProtoNix) 40 MG EC tablet Osteoporosis (CMS/HCC) UTD on DEXA Recommend exercise as chronic conditions allow Edema of extremities Relevant Medications spironolactone (Aldactone) 25 MG tablet Vitamin D deficiency Continue meds Relevant Medications cholecalciferol (Vitamin D-3) 50 MCG (1999 [place]) tablet Tobacco user The patient has been advised of the risks of continued smoking: stroke, SD, all forms of cancer, lung disease, and [...] complication, with long-term current use of insulin (CMS/[facility]) Continue with dr allison for management of [...] of the risks of continued smoking: stroke, SD, all forms of cancer, lung disease, and [...] diet low in sugar Associated Problem(s): Osteoporosis (CMS/HCC) UTD on DEXA Recommend exercise as chronic conditions allow Associated Problem(s): Encounter for wellness examination Reviewed Ht/Wt/BMI Recommend eye exam yearly Recommend dental exams twice a year Balance work/leisure activities Exercises is recommended most days of the week (appropriate as chronic conditions allow) Follow up yearly and prn documented in this encounter [facility] 04-22-2024 Instructions Maira Rush NP - 04/22/2024 9:20 AM EST New atb for pneumonia Need to schedule with pulmonology and eye doctor Eye doctor is : [phone] [facility] eye care Lung doctor: janet office [phone] documented in this encounter [facility] 04-21-2024 History of Presen t illness Narrative [...] 271. She is on Basaglar 50, Humalog 10--15 plus scale #2 and metformin gave her [...] (VITAMIN D-3) 2,000 Units, Daily Continuous Glucose Radiocommunications Technician (FreeStyle Julisa 2 [place]) device Continuous Glucose Sensor (FreeStyle Julisa 2 [...] day (morning and mid-day) Sure Comfort [place] 32G X 4 MM misc 1 each, [...] necrosis or infection, unspecified Anxiety and depression ([facility]) 07/18/2023 Atrial fibrillation ([facility]) 07/18/2023 Body mass index (BMI) 40.0-44.9, adult ([facility]) COPD mixed type ([facility]) 05/23/2023 Dietary counseling and surveillance Drug-induced acute pancreatitis 07/18/2023 Edema of extremities 07/18/2023 Essential (primary) hypertension ([facility]) 12/04/2010 GERD (gastroesophageal reflux disease) 07/18/2023 HLD (hyperlipidemia) ([facility]) 07/18/2023 Hx of being hospitalized 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 ([facility]) Medical non-compliance 07/18/2023 Morbid obesity with body mass index (BMI) of 40.0 to 49.9 ([facility]) 07/18/2023 Neuropathy, diabetic ([facility]) 07/18/2023 SANTO (obstructive sleep apnea) 07/18/2023 Osteoporosis ([facility]) 07/18/2023 Seasonal allergies 07/18/2023 Tobacco user 07/18/2023 Type 2 diabetes mellitus with complication, without long-term current use of insulin ([facility]) 07/18/2023 Urge and stress incontinence 07/18/2023 Vitamin [...] hyperglycemia, with long-term current use of insulin ([facility]) - POCT glucose manually resulted - POCT [...] day, we will start her on a freestyle Julisa at 2 we will do PA if needed. Encounter for dietary consultation Diet and exercise reviewed with the patient Vitamin D deficiency Primary hypertension (CMS/HCC) To follow with her PCP Hyperlipemia, mixed (CMS/HCC) Continue with statin Crestor 5 mg once a day Insulin long-term use ([facility]) Class 1 obesity due to excess calories without serious comorbidity with body mass index (BMI) of 33.0 to 33.9 in adult Follow up in about 3 months (around 07/22/2024). documented in this encounter [facility] 04-09-2024 Telephone encounter Note I would like Denae Dior to be enrolled in [facility] if her insurance allows She is now living on her own, is [place]. She has not been to see Dr Allison for some time, he is the one to manage her DM, recent A1c is 10.4% LA [facility] 04-09-2024 Miscellaneous Notes I would like Denae Dior to be enrolled in [facility] if her insurance allows She is now living on her own, is in [place]. She has not been to see Dr Allison for some time, he is the one to manage her DM, recent A1c is 10.4% [place] documented in this encounter [facility] 03-20-2024 History of Presen t illness Narrative Images from the original note were not included. Wound Care Progress Note Patient: Denae Dior Date of : 1960 Chief Complaint:buttock wound, new patient Subjective/HPI: Denae is a 63 y.o. female who present to [facility] for evaluation of 1 ulcer(s) on the sacral area. Patient was first assessed in wound clinic on 03/20/24. Current daily wound care includes OTC zinc cream up to 4 times daily. Reports blood glucose 299 last night which is typical for her. States she has lost weight due to stress putting her in penitentiary. She does not know how wound occurred [...] List Diagnosis Hyperglycemia Weakness Hypokalemia Atrial fibrillation ([facility]) Chronic obstructive pulmonary disease ([facility]) JORDAN (generalized anxiety disorder) GERD (gastroesophageal reflux disease) HLD (hyperlipidemia) Medical non-compliance Neuropathy, diabetic ([facility]) Primary hypertension SANTO (obstructive sleep apnea) Tobacco dependence syndrome Type 2 diabetes mellitus with complication, without long-term current use of insulin ([facility]) Muscle weakness (generalized) Other abnormalities of gait [...] Mid (Active) Wound Image 03/20/24920 Site Assessment Sena;Red 03/20/24920 Stefanie-wound Assessment White;Sena;Intact 03/20/24920 Wound Length (cm) 0.8 cm 03/20/24920 [...] Stage III pressure ulcer of sacral region (CMS-HCC) 2. Open wound Dicussed that pressure is [...] ulcer, with long-term current use of insulin ([facility]) (Primary) Patient states she is going to call her fisher eel for follow up. Encouraged due to consistent [...] short term goal is wound compliance. Our skilled nursing goal is wound closure. Follow up wound [...] health record Frida CHAMBERS, MARY [facility] Office: [phone] Email: [email or web address] Thank you very much for allowing us to participate in your patients care. Your referrals are greatly appreciated, please do not hesitate to contact our service with any questions or concerns regarding the care management. TRISH Zamudio 03/20/24 1021 documented in this encounter [facility] 03-20-2024 Instructions Hillary Daniels RN - [...] up your follow up appointment with your fisher eel (diabetes DR) Length Width Depth Wound 03/20/24 1 Pressure Injury Coccyx Mid-Wound Length (cm): 0.8 cm Wound 03/20/24 1 Pressure Injury Coccyx Mid-Wound Width (cm): 0.2 cm Wound 03/20/24 1 Pressure Injury Coccyx Mid-Wound Depth (cm): 0.1 cm Wound drainage Type Description none documented in this encounter [facility] 03-18-2024 Telephone encounter Note Contact provider this morning, she is now starting to cough up yellow mucus and worsening in symtpoms, no fever, no NVD Will send in atb Also needs humidification for her oxygen She is instructed if atb does not help will need fu apppt [place] [facility] 03-18-2024 Miscellaneous Notes Contact provider this morning, she is now starting to cough up yellow mucus and worsening in symtpoms, no fever, no NVD Will send in atb Also needs humidification for her oxygen She is instructed if atb does not help will need fu apppt [place] documented in this encounter [facility] 03-11-2024 History of Presen t illness Narrative Associated Problem(s): Type 2 diabetes mellitus without complication, with long-term current use of insulin ([facility]) Phone number given for pt to [...] D-3) 2,000 Units, Oral, Daily Continuous Glucose Radiocommunications Technician (FreeStyle Julisa 2 [place]) device Continuous Glucose Sensor (FreeStyle Julisa 2 [...] day (morning and mid-day) Sure Comfort [place] 32G X 4 MM misc 1 each, [...] Medical History: Diagnosis Date Anxiety and depression ([facility]) 07/18/2023 Atrial fibrillation ([facility]) 07/18/2023 COPD mixed type ([facility]) 05/23/2023 Drug-induced acute pancreatitis 07/18/2023 Edema of extremities 07/18/2023 GERD (gastroesophageal reflux disease) 07/18/2023 HLD (hyperlipidemia) ([facility]) 07/18/2023 Medical non-compliance 07/18/2023 Morbid obesity with body mass index (BMI) of 40.0 to 49.9 ([facility]) 07/18/2023 Neuropathy, diabetic ([facility]) 07/18/2023 SANTO (obstructive sleep apnea) 07/18/2023 Osteoporosis ([facility]) 07/18/2023 Seasonal allergies 07/18/2023 Tobacco user 07/18/2023 Type 2 diabetes mellitus with complication, without long-term current use of insulin ([facility]) 07/18/2023 Urge and stress incontinence 07/18/2023 [...] complication, with long-term current use of insulin ([facility]) Phone number given for pt to contact Dr Allison office Relevant Orders Ambulatory referral to Wound Clinic Viral upper respiratory tract infection - Primary Do not see any s/s bacterial infection, lungs clear Did in office Flu A/B/Covid: negative Fluids, rest, monitor for s/s worsening if so call office documented in this encounter [facility] 02-25-2024 History of Presen t illness Narrative [...] 25mg BID Her new med supply from [facility] is 25mg BID This may be related to her dizziness Will obtain notes from [facility], I did call medical records and left voice mail to send all ER notes for recent visit Associated Problem(s): Type 2 diabetes mellitus without complication, with long-term current use of insulin ([facility]) Continue current dosing of insulin at BID [...] fu appt with them Was in the [facility] er yesterday for dizziness: room spinning, no [...] D-3) 2,000 Units, Oral, Daily Continuous Glucose Radiocommunications Technician (FreeStyle Julisa 2 [place]) device Continuous Glucose Sensor (FreeStyle Julisa 2 [...] day (morning and mid-day) Sure Comfort [place] 32G X 4 MM misc 1 each, [...] Medical History: Diagnosis Date Anxiety and depression ([facility]) 07/18/2023 Atrial fibrillation ([facility]) 07/18/2023 COPD mixed type ([facility]) 05/23/2023 Drug-induced acute pancreatitis 07/18/2023 Edema of extremities 07/18/2023 GERD (gastroesophageal reflux disease) 07/18/2023 HLD (hyperlipidemia) [facility] 07/18/2023 Medical non-compliance 07/18/2023 Morbid obesity with body mass index (BMI) of 40.0 to 49.9 ([facility]) 07/18/2023 Neuropathy, diabetic ([facility]) 07/18/2023 SANTO (obstructive sleep apnea) 07/18/2023 Osteoporosis ([facility]) 07/18/2023 Seasonal allergies 07/18/2023 Tobacco user 07/18/2023 Type 2 diabetes mellitus with complication, without long-term current use of insulin ([facility]) 07/18/2023 Urge and stress incontinence 07/18/2023 Vitamin [...] No rash. Comments: Open skin lesion to cleft, no surrounding s/s of infection, approx [...] complication, with long-term current use of insulin ([facility]) Continue current dosing of insulin at BID [...] 25mg BID Her new med supply from [facility] is 25mg BID This may be related to her dizziness Will obtain notes from [facility], I did call medical records and left voice mail to send all ER notes for recent visit Open wound of buttock - Primary Recommend cleansing area with soap and water 3-4 times daily and apply zinc oxide cream Increase protein intake Fu in 2 weeks for recheck No atb needed at this time documented in this encounter [facility] 02-17-2024 History of Presen t illness Narrative [...] file. HPI: Recent discharge from hospital and penitentiary for weakness and inability to care for [...] no compliance problems. Hypertensive end-organ damage includes CAD/SD and heart failure. Diabetes She presents for [...] D-3) 2,000 Units, Oral, Daily Continuous Glucose Radiocommunications Technician (FreeStyle Julisa 2 [place]) device Continuous Glucose Sensor (FreeStyle Julisa 2 Sensor) [facility] empagliflozin (JARDIANCE) 25 mg, Oral, Daily furosemide [...] Oral, 2 times daily Sure Comfort [place] 32G X 4 MM misc 1 each, [...] Medical History: Diagnosis Date Anxiety and depression ([facility]) 07/18/2023 Atrial fibrillation ([facility]) 07/18/2023 COPD mixed type ([facility]) 05/23/2023 Drug-induced acute pancreatitis 07/18/2023 Edema of extremities 07/18/2023 GERD (gastroesophageal reflux disease) 07/18/2023 HLD (hyperlipidemia) ([facility]) 07/18/2023 Medical non-compliance 07/18/2023 Morbid obesity with body mass index (BMI) of 40.0 to 49.9 ([facility]) 07/18/2023 Neuropathy, diabetic ([facility]) 07/18/2023 SANTO (obstructive sleep apnea) 07/18/2023 Osteoporosis ([facility]) 07/18/2023 Seasonal allergies 07/18/2023 Tobacco user 07/18/2023 Type 2 diabetes mellitus with complication, without long-term current use of insulin ([facility]) 07/18/2023 Urge and stress incontinence 07/18/2023 Vitamin [...] panel Type 2 diabetes mellitus with hyperglycemia (CMS/HCC) - Primary Relevant Orders Comprehensive metabolic panel Hemoglobin A1c Urinalysis with reflex microscopic (clean catch) Dizziness and giddiness Could be still with getting stronger, also will check labs to r/o anemia or elyte abnormals Fu in 3 weeks Continue with home OT/PT Relevant Orders Magnesium Comprehensive metabolic panel CBC and differential Urinalysis with reflex microscopic (clean catch) documented in this encounter [facility] 01-16-2024 Note XR CHEST 1 VW Procedure: Chest x-ray performed Number of views:1 History:Cough Comparison:07/13/2022 Impression: 1. There is patchy airspace disease and effusion in the left lung base. The right lung is clear. There is no pneumothorax. The mediastinal structures are unremarkable. Finalized by Chalo Lang MD on 01/16/2024 8:28 PM [facility] 07-18-2023 History of Presen t illness [...] to wear PAP Not wearing risk stroke, SD, Associated Problem(s): Type 2 diabetes mellitus with diabetic neuropathy, with long-term current use of insulin (CMS/HCC) Non compliant with follow up with Endo Explained to her her persistent non compliance will lead to increase risk stroke, SD, blindness, amputation, as well as CKD Instructed [...] 2 puffs, Inhalation, Daily Sure Comfort [place] 32G X 4 MM misc 1 each, [...] Medical History: Diagnosis Date Anxiety and depression ([facility]) 07/18/2023 Atrial fibrillation ([facility]) 07/18/2023 COPD mixed type ([facility]) 05/23/2023 Drug-induced acute pancreatitis 07/18/2023 Edema of extremities 07/18/2023 GERD (gastroesophageal reflux disease) 07/18/2023 HLD (hyperlipidemia) ([facility]) 07/18/2023 Medical non-compliance 07/18/2023 Morbid obesity with body mass index (BMI) of 40.0 to 49.9 ([facility]) 07/18/2023 Neuropathy, diabetic ([facility]) 07/18/2023 SANTO (obstructive sleep apnea) 07/18/2023 Osteoporosis ([facility]) 07/18/2023 Seasonal allergies 07/18/2023 Tobacco user 07/18/2023 Type 2 diabetes mellitus with complication, without long-term current use of insulin ([facility]) 07/18/2023 Urge and stress incontinence 07/18/2023 Vitamin [...] current meds at this time Primary hypertension ([facility]) stable Relevant Orders Comprehensive metabolic panel Type 2 diabetes mellitus with diabetic neuropathy, with long-term current use of insulin ([facility]) - Primary Non compliant with follow up with Endo Explained to her her persistent non compliance will lead to increase risk stroke, SD, blindness, amputation, as well as CKD Instructed [...] to wear PAP Not wearing risk stroke, SD, GERD (gastroesophageal reflux disease) Relevant Orders CBC and differential Vitamin D deficiency Relevant Orders Vitamin D 25 hydroxy Type 2 diabetes mellitus with complication, without long-term current use of insulin (CMS/HCC) Relevant Orders Comprehensive metabolic panel Microalbumin / [...] ointment on this documented in this encounter [facility] 01-08-2023 Note Patient here for 6 m [...] All other systems reviewed and are negative. [facility] 01-08-2023 Note Cardiology Clinic No te [...] Lexiscan stress test (more content not included)... [facility] 06-07-2022 Note PROCEDURE: XR FOOT L [...] by: ROBERT HART Date: 2022-06-07 08:43 [facility] Evaluation note Diagnosis Primary hypertension (CMS/HCC)- Primary [...] mass index (BMI) of 40.0 to 49.9 ([facility]) documented in this encounter [facility] HealthcareEvaluation note* Diagnosis Viral upper respiratory tract infection- Primary Acute upper respiratory infections of unspecified site Tobacco user Tobacco use disorder Open wound Open wound(s) (multiple) of unspecified site(s), without mention of complication Obesity (BMI 30-39.9) Type 2 diabetes mellitus without complication, with long-term current use of insulin ([facility]) documented in this encounter [facility] HealthcareEvaluation note* Diagnosis Primary hypertension (CMS/HCC)- Primary Unspecified essential [...] mass index (BMI) of 40.0 to 49.9 ([facility]) COPD mixed type ([facility])- Primary Dysuria Atrial fibrillation, unspecified type ([facility]) Gastroesophageal reflux disease, unspecified whether esophagitis present Type 2 diabetes mellitus with complication, without long-term current use of insulin ([facility]) Obesity (BMI 30-39.9) Tobacco user Tobacco use disorder Anxiety and depression ([facility]) Dermatitis Contact dermatitis and other eczema, due to unspecified cause Anxiety and depression ([facility])- Primary Obesity (BMI 30-39.9) Type 2 diabetes mellitus with complication, without long-term current use of insulin ([facility]) Medical non-compliance Tobacco user Tobacco use disorder Type 2 diabetes mellitus with hyperglycemia ([facility])- Primary Primary hypertension ([facility]) Unspecified essential hypertension Edema of extremities Edema Type 2 diabetes mellitus without complication, with long-term current use of insulin ([facility]) Vitamin D deficiency Tobacco user Tobacco use disorder Dizziness and giddiness Atrial fibrillation, unspecified type ([facility]) COPD mixed type ([facility]) Open wound of buttock, unspecified laterality, initial encounter- Primary Type 2 diabetes mellitus without complication, with long-term current use of insulin ([facility]) Obesity (BMI 30-39.9) Dizziness and giddiness Viral upper respiratory tract infection- Primary Acute upper respiratory infections of unspecified site Tobacco user Tobacco use disorder Open wound Open wound(s) (multiple) of unspecified site(s), without mention of complication Obesity (BMI 30-39.9) Type 2 diabetes mellitus without complication, with long-term current use of insulin ([facility]) Primary hypertension ([facility])- Primary Unspecified essential hypertension Edema of extremities Edema documented in this encounter [facility] HealthcareEvaluation note* Diagnosis Primary hypertension ([facility])- Primary Unspecified essential hypertension Type 2 diabetes mellitus with diabetic neuropathy, with long-term current use of insulin ([facility]) Gastroesophageal reflux disease, unspecified whether esophagitis present Vitamin D deficiency Type 2 diabetes mellitus with complication, without long-term current use of insulin ([facility] Mixed hyperlipidemia ([facility]) Mixed hyperlipidemia Encounter for screening mammogram for malignant neoplasm of breast SANTO (obstructive sleep apnea) Obstructive sleep apnea (adult) (pediatric) COPD mixed type ([facility]) Anxiety and depression ([facility]) COVID Open wound Open wound(s) (multiple) of unspecified site(s), without mention of complication Morbid obesity with body mass index (BMI) of 40.0 to 49.9 ([facility]) COPD mixed type ([facility])- Primary Dysuria Atrial fibrillation, unspecified type ([facility]) Gastroesophageal reflux disease, unspecified whether esophagitis present Type 2 diabetes mellitus with complication, without long-term current use of insulin ([facility]) Obesity (BMI 30-39.9) Tobacco user Tobacco use disorder Anxiety and depression ([facility]) Dermatitis Contact dermatitis and other eczema, due to unspecified cause Anxiety and depression ([facility])- Primary Obesity (BMI 30-39.9) Type 2 diabetes mellitus with complication, without long-term current use of insulin ([facility]) Medical non-compliance Tobacco user Tobacco use disorder Type 2 diabetes mellitus with hyperglycemia ([facility])- Primary Primary hypertension ([facility]) Unspecified essential hypertension Edema of extremities Edema Type 2 diabetes mellitus without complication, with long-term current use of insulin ([facility]) Vitamin D deficiency Tobacco user Tobacco use disorder Dizziness and giddiness Atrial fibrillation, unspecified type ([facility]) COPD mixed type ([facility]) Open wound of buttock, unspecified laterality, initial encounter- Primary Type 2 diabetes mellitus without complication, with long-term current use of insulin ([facility]) Obesity (BMI 30-39.9) Dizziness and giddiness Viral upper respiratory tract infection- Primary Acute upper respiratory infections of unspecified site Tobacco user Tobacco use disorder Open wound Open wound(s) (multiple) of unspecified site(s), without mention of complication Obesity (BMI 30-39.9) Type 2 diabetes mellitus without complication, with long-term current use of insulin ([facility]) COPD mixed type ([facility])- Primary URI, acute Acute upper respiratory infections of unspecified site documented in this encounter [facility]* Diagnosis Primary hypertension ([facility])- Primary Unspecified essential hypertension Type 2 diabetes mellitus with diabetic neuropathy, with long-term current use of insulin ([facility]) Gastroesophageal reflux disease, unspecified whether esophagitis present Vitamin D deficiency Type 2 diabetes mellitus with complication, without long-term current use of insulin ([facility]) Mixed hyperlipidemia ([facility]) Mixed hyperlipidemia Encounter for screening mammogram for malignant neoplasm of breast SANTO (obstructive sleep apnea) Obstructive sleep apnea (adult) (pediatric) COPD mixed type ([facility]) Anxiety and depression ([facility]) COVID Open wound Open wound(s) (multiple) of unspecified site(s), without mention of complication Morbid obesity with body mass index (BMI) of 40.0 to 49.9 ([facility]) COPD mixed type ([facility])- Primary Dysuria Atrial fibrillation, unspecified type ([facility]) Gastroesophageal reflux disease, unspecified whether esophagitis present Type 2 diabetes mellitus with complication, without long-term current use of insulin ([facility]) Obesity (BMI 30-39.9) Tobacco user Tobacco use disorder Anxiety and depression ([facility]) Dermatitis Contact dermatitis and other eczema, due to unspecified cause Anxiety and depression ([facility])- Primary Obesity (BMI 30-39.9) Type 2 diabetes mellitus with complication, without long-term current use of insulin ([facility] Medical non-compliance Tobacco user Tobacco use disorder Type 2 diabetes mellitus with hyperglycemia ([facility])- Primary Primary hypertension ([facility]) Unspecified essential hypertension Edema of extremities Edema Type 2 diabetes mellitus without complication, with long-term current use of insulin ([facility]) Vitamin D deficiency Tobacco user Tobacco use disorder Dizziness and giddiness Atrial fibrillation, unspecified type ([facility]) COPD mixed type ([facility]) Open wound of buttock, unspecified laterality, initial encounter- Primary Type 2 diabetes mellitus without complication, with long-term current use of insulin ([facility]) Obesity (BMI 30-39.9) Dizziness and giddiness Viral upper respiratory tract infection- Primary Acute upper respiratory infections of unspecified site Tobacco user Tobacco use disorder Open wound Open wound(s) (multiple) of unspecified site(s), without mention of complication Obesity (BMI 30-39.9) Type 2 diabetes mellitus without complication, with long-term current use of insulin ([facility]) COPD mixed type ([facility]) URI, acute Acute upper respiratory infections of unspecified site documented in this encounter [facility]Evaluation [facility]* Diagnosis Type 2 diabetes mellitus with other skin ulcer, with long-term current use of insulin ([facility])- Primary Stage III pressure ulcer of sacral region ([facility]) Open wound Open wound(s) (multiple) of unspecified site(s), without mention of complication [facility] Diagnosis Primary hypertension ([facility])- Primary Unspecified essential hypertension Type 2 diabetes mellitus with diabetic neuropathy, with long-term current use of insulin ([facility]) Gastroesophageal reflux disease, unspecified whether esophagitis present Vitamin D deficiency Type 2 diabetes mellitus with complication, without long-term current use of insulin ([facility]) Mixed hyperlipidemia ([facility]) Mixed hyperlipidemia Encounter for screening mammogram for malignant neoplasm of breast SANTO (obstructive sleep apnea) Obstructive sleep apnea (adult) (pediatric) COPD mixed type ([facility]) Anxiety and depression ([facility]) COVID Open wound Open wound(s) (multiple) of unspecified site(s), without mention of complication Morbid obesity with body mass index (BMI) of 40.0 to 49.9 ([facility] COPD mixed type ([facility])- Primary Dysuria Atrial fibrillation, unspecified type ([facility]) Gastroesophageal reflux disease, unspecified whether esophagitis present Type 2 diabetes mellitus with complication, without long-term current use of insulin ([facility]) Obesity (BMI 30-39.9) Tobacco user Tobacco use disorder Anxiety and depression ([facility]) Dermatitis Contact dermatitis and other eczema, due to unspecified cause Anxiety and depression ([facility])- Primary Obesity (BMI 30-39.9) Type 2 diabetes mellitus with complication, without long-term current use of insulin ([facility]) Medical non-compliance Tobacco user Tobacco use disorder Type 2 diabetes mellitus with hyperglycemia ([facility])- Primary Primary hypertension ([facility]) Unspecified essential hypertension Edema of extremities Edema Type 2 diabetes mellitus without complication, with long-term current use of insulin ([facility]) Vitamin D deficiency Tobacco user Tobacco use disorder Dizziness and giddiness Atrial fibrillation, unspecified type ([facility]) COPD mixed type ([facility]) Open wound of buttock, unspecified laterality, initial encounter- Primary Type 2 diabetes mellitus without complication, with long-term current use of insulin ([facility]) Obesity (BMI 30-39.9) Dizziness and giddiness Viral upper respiratory tract infection- Primary Acute upper respiratory infections of unspecified site Tobacco user Tobacco use disorder Open wound Open wound(s) (multiple) of unspecified site(s), without mention of complication Obesity (BMI 30-39.9) Type 2 diabetes mellitus without complication, with long-term current use of insulin ([facility]) Encounter for wellness examination- Primary Osteoporosis, unspecified osteoporosis type, unspecified pathological fracture presence ([facility]) Open wound of buttock, unspecified laterality, initial encounter Type 2 diabetes mellitus without complication, with long-term current use of insulin ([facility]) Obesity (BMI 30-39.9) Tobacco user Tobacco use disorder Anxiety and depression ([facility]) Type 2 diabetes mellitus with diabetic neuropathy, with long-term current use of insulin ([facility]) COPD mixed type ([facility]) Diabetic polyneuropathy associated with type 2 diabetes mellitus ([facility]) Gastroesophageal reflux disease, unspecified whether esophagitis present Mixed hyperlipidemia ([facility] Mixed hyperlipidemia Primary hypertension ([facility]) Unspecified essential hypertension Edema of extremities Edema Lung nodule, multiple Lymphadenopathy, generalized Vitamin D deficiency Oxygen dependent Dependence on supplemental oxygen Community acquired pneumonia, unspecified laterality documented in this encounter [facility] HealthcareEvaluation note* Diagnosis Primary hypertension ([facility])- Primary Unspecified essential hypertension Type 2 diabetes mellitus with diabetic neuropathy, with long-term current use of insulin ([facility]) Gastroesophageal reflux disease, unspecified whether esophagitis present Vitamin D deficiency Type 2 diabetes mellitus with complication, without long-term current use of insulin ([facility]) Mixed hyperlipidemia ([facility]) Mixed hyperlipidemia Encounter for screening mammogram for malignant neoplasm of breast SANTO (obstructive sleep apnea) Obstructive sleep apnea (adult) (pediatric) COPD mixed type ([facility]) Anxiety and depression ([facility]) COVID Open wound Open wound(s) (multiple) of unspecified site(s), without mention of complication Morbid obesity with body mass index (BMI) of 40.0 to 49.9 ([facility]) COPD mixed type ([facility])- Primary Dysuria Atrial fibrillation, unspecified type ([facility]) Gastroesophageal reflux disease, unspecified whether esophagitis present Type 2 diabetes mellitus with complication, without long-term current use of insulin ([facility]) Obesity (BMI 30-39.9) Tobacco user Tobacco use disorder Anxiety and depression ([facility]) Dermatitis Contact dermatitis and other eczema, due to unspecified cause Anxiety and depression ([facility])- Primary Obesity (BMI 30-39.9) Type 2 diabetes mellitus with complication, without long-term current use of insulin ([facility]) Medical non-compliance Tobacco user Tobacco use disorder Type 2 diabetes mellitus with hyperglycemia ([facility])- Primary Primary hypertension ([facility]) Unspecified essential hypertension Edema of extremities Edema Type 2 diabetes mellitus without complication, with long-term current use of insulin ([facility]) Vitamin D deficiency Tobacco user Tobacco use disorder Dizziness and giddiness Atrial fibrillation, unspecified type ([facility]) COPD mixed type ([facility]) Open wound of buttock, unspecified laterality, initial encounter- Primary Type 2 diabetes mellitus without complication, with long-term current use of insulin ([facility]) Obesity (BMI 30-39.9) Dizziness and giddiness Viral upper respiratory tract infection- Primary Acute upper respiratory infections of unspecified site Tobacco user Tobacco use disorder Open wound Open wound(s) (multiple) of unspecified site(s), without mention of complication Obesity (BMI 30-39.9) Type 2 diabetes mellitus without complication, with long-term current use of insulin ([facility]) Encounter for wellness examination- Primary Osteoporosis, unspecified osteoporosis type, unspecified pathological fracture presence ([facility]) Open wound of buttock, unspecified laterality, initial encounter Type 2 diabetes mellitus without complication, with long-term current use of insulin ([facility]) Obesity (BMI 30-39.9) Tobacco user Tobacco use disorder Anxiety and depression ([facility]) Type 2 diabetes mellitus with diabetic neuropathy, with long-term current use of insulin ([facility]) COPD mixed type ([facility]) Diabetic polyneuropathy associated with type 2 diabetes mellitus ([facility]) Gastroesophageal reflux disease, unspecified whether esophagitis present Mixed hyperlipidemia ([facility] Mixed hyperlipidemia Primary hypertension ([facility]) Unspecified essential hypertension Edema of extremities Edema Lung nodule, multiple Lymphadenopathy, generalized Vitamin D deficiency Oxygen dependent Dependence on supplemental oxygen Community acquired pneumonia, unspecified laterality COPD mixed type ([facility])- Primary SANTO (obstructive sleep apnea) Obstructive sleep apnea (adult) (pediatric) Lung nodule, multiple Community acquired pneumonia, unspecified laterality Primary hypertension ([facility]) Unspecified essential hypertension Atrial fibrillation, unspecified type ([facility]) Type 2 diabetes mellitus without complication, with long-term current use of insulin ([facility]) Tobacco user Tobacco use disorder Needs flu shot Need for prophylactic vaccination and inoculation against influenza documented in this encounter [facility] HealthcareEvaluation note* Diagnosis Type 2 diabetes mellitus with hyperglycemia ([facility])- Primary Primary hypertension ([facility]) Unspecified essential hypertension Edema of extremities Edema Type 2 diabetes mellitus without complication, with long-term current use of insulin ([facility]) Vitamin D deficiency Tobacco user Tobacco use disorder Dizziness and giddiness Atrial fibrillation, unspecified type ([facility] COPD mixed type ([facility]) documented in [facility] encounter [facility] HealthcareEvaluation note* Diagnosis Primary hypertension ([facility])- Primary Unspecified essential hypertension Type 2 diabetes mellitus with diabetic neuropathy, with long-term current use of insulin ([facility]) Gastroesophageal reflux disease, unspecified whether esophagitis present Vitamin D deficiency Type 2 diabetes mellitus with complication, without long-term current use of insulin ([facility]) Mixed hyperlipidemia ([facility]) Mixed hyperlipidemia Encounter for screening mammogram for malignant neoplasm of breast SANTO (obstructive sleep apnea) Obstructive sleep apnea (adult) (pediatric) COPD mixed type ([facility]) Anxiety and depression ([facility]) COVID Open wound Open wound(s) (multiple) of unspecified site(s), without mention of complication Morbid obesity with body mass index (BMI) of 40.0 to 49.9 ([facility]) COPD mixed type ([facility])- Primary Dysuria Atrial fibrillation, unspecified type ([facility]) Gastroesophageal reflux disease, unspecified whether esophagitis present Type 2 diabetes mellitus with complication, without long-term current use of insulin ([facility]) Obesity (BMI 30-39.9) Tobacco user Tobacco use disorder Anxiety and depression ([facility]) Dermatitis Contact dermatitis and other eczema, due to unspecified cause Anxiety and depression ([facility])- Primary Obesity (BMI 30-39.9) Type 2 diabetes mellitus with complication, without long-term current use of insulin ([facility]) Medical non-compliance Tobacco user Tobacco use disorder Type 2 diabetes mellitus with hyperglycemia ([facility])- Primary Primary hypertension ([facility]) Unspecified essential hypertension Edema of extremities Edema Type 2 diabetes mellitus without complication, with long-term current use of insulin ([facility]) Vitamin D deficiency Tobacco user Tobacco use disorder Dizziness and giddiness Atrial fibrillation, unspecified type ([facility]) COPD mixed type ([facility]) Open wound of buttock, unspecified laterality, initial encounter- Primary Type 2 diabetes mellitus without complication, with long-term current use of insulin ([facility]) Obesity (BMI 30-39.9) Dizziness and giddiness Viral upper respiratory tract infection- Primary Acute upper respiratory infections of unspecified site Tobacco user Tobacco use disorder Open wound Open wound(s) (multiple) of unspecified site(s), without mention of complication Obesity (BMI 30-39.9) Type 2 diabetes mellitus without complication, with long-term current use of insulin ([facility]) Encounter for wellness examination- Primary Osteoporosis, unspecified osteoporosis type, unspecified pathological fracture presence ([facility]) Open wound of buttock, unspecified laterality, initial encounter Type 2 diabetes mellitus without complication, with long-term current use of insulin ([facility]) Obesity (BMI 30-39.9) Tobacco user Tobacco use disorder Anxiety and depression ([facility]) Type 2 diabetes mellitus with diabetic neuropathy, with long-term current use of insulin ([facility]) COPD mixed type ([facility]) Diabetic polyneuropathy associated with type 2 diabetes mellitus ([facility]) Gastroesophageal reflux disease, unspecified whether esophagitis present Mixed hyperlipidemia ([facility] Mixed hyperlipidemia Primary hypertension ([facility]) Unspecified essential hypertension Edema of extremities Edema Lung nodule, multiple Lymphadenopathy, generalized Vitamin D deficiency Oxygen dependent Dependence on supplemental oxygen Community acquired pneumonia, unspecified laterality COPD mixed type ([facility])- Primary SANTO (obstructive sleep apnea) Obstructive sleep apnea (adult) (pediatric) Lung nodule, multiple Community acquired pneumonia, unspecified laterality Primary hypertension ([facility]) Unspecified essential hypertension Atrial fibrillation, unspecified type ([facility]) Type 2 diabetes mellitus without complication, with long-term current use of insulin ([facility]) Tobacco user Tobacco use disorder Needs flu shot Need for prophylactic vaccination and inoculation against influenza Lung nodule, multiple- Primary documented in this encounter [facility] HealthcareEvaluation note* Diagnosis Primary hypertension ([facility])- Primary Unspecified essential hypertension Type 2 diabetes mellitus with diabetic neuropathy, with long-term current use of insulin ([facility]) Gastroesophageal reflux disease, unspecified whether esophagitis present Vitamin D deficiency Type 2 diabetes mellitus with complication, without long-term current use of insulin ([facility]) Mixed hyperlipidemia ([facility]) Mixed hyperlipidemia Encounter for screening mammogram for malignant neoplasm of breast SANTO (obstructive sleep apnea) Obstructive sleep apnea (adult) (pediatric) COPD mixed type ([facility]) Anxiety and depression ([facility]) COVID Open wound Open wound(s) (multiple) of unspecified site(s), without mention of complication Morbid obesity with body mass index (BMI) of 40.0 to 49.9 ([facility] COPD mixed type ([facility])- Primary Dysuria Atrial fibrillation, unspecified type ([facility]) Gastroesophageal reflux disease, unspecified whether esophagitis present Type 2 diabetes mellitus with complication, without long-term current use of insulin ([facility]) Obesity (BMI 30-39.9) Tobacco user Tobacco use disorder Anxiety and depression ([facility]) Dermatitis Contact dermatitis and other eczema, due to unspecified cause Anxiety and depression ([facility])- Primary Obesity (BMI 30-39.9) Type 2 diabetes mellitus with complication, without long-term current use of insulin ([facility]) Medical non-compliance Tobacco user Tobacco use disorder Type 2 diabetes mellitus with hyperglycemia ([facility])- Primary Primary hypertension ([facility]) Unspecified essential hypertension Edema of extremities Edema Type 2 diabetes mellitus without complication, with long-term current use of insulin ([facility]) Vitamin D deficiency Tobacco user Tobacco use disorder Dizziness and giddiness Atrial fibrillation, unspecified type ([facility]) COPD mixed type ([facility]) Open wound of buttock, unspecified laterality, initial encounter- Primary Type 2 diabetes mellitus without complication, with long-term current use of insulin ([facility]) Obesity (BMI 30-39.9) Dizziness and giddiness Viral upper respiratory tract infection- Primary Acute upper respiratory infections of unspecified site Tobacco user Tobacco use disorder Open wound Open wound(s) (multiple) of unspecified site(s), without mention of complication Obesity (BMI 30-39.9) Type 2 diabetes mellitus without complication, with long-term current use of insulin ([facility]) Encounter for wellness examination- Primary Osteoporosis, unspecified osteoporosis type, unspecified pathological fracture presence ([facility]) Open wound of buttock, unspecified laterality, initial encounter Type 2 diabetes mellitus without complication, with long-term current use of insulin ([facility]) Obesity (BMI 30-39.9) Tobacco user Tobacco use disorder Anxiety and depression ([facility]) Type 2 diabetes mellitus with diabetic neuropathy, with long-term current use of insulin ([facility]) COPD mixed type ([facility]) Diabetic polyneuropathy associated with type 2 diabetes mellitus ([facility]) Gastroesophageal reflux disease, unspecified whether esophagitis present Mixed hyperlipidemia ([facility]) Mixed hyperlipidemia Primary hypertension (CMS/HCC) Unspecified essential hypertension Edema of extremities Edema Lung nodule, multiple Lymphadenopathy, generalized Vitamin D deficiency Oxygen dependent Dependence on supplemental oxygen Community acquired pneumonia, unspecified laterality COPD mixed type ([facility])- Primary SANTO (obstructive sleep apnea) Obstructive sleep apnea (adult) (pediatric) Lung nodule, multiple Community acquired pneumonia, unspecified laterality Primary hypertension ([facility]/HCC) Unspecified essential hypertension Atrial fibrillation, unspecified type ([facility]) Type 2 diabetes mellitus without complication, with long-term current use of insulin ([facility]) Tobacco user Tobacco use disorder Needs flu shot Need for prophylactic vaccination and inoculation against influenza Right wrist pain- Primary Pain in joint, forearm Obesity (BMI 30-39.9) documented in this encounter [facility] HealthcareEvaluation note* Diagnosis Primary hypertension ([facility])- Primary Unspecified essential hypertension Type 2 diabetes mellitus with diabetic neuropathy, with long-term current use of insulin ([facility]) Gastroesophageal reflux disease, unspecified whether esophagitis present Vitamin D deficiency Type 2 diabetes mellitus with complication, without long-term current use of insulin ([facility]) Mixed hyperlipidemia ([facility]) Mixed hyperlipidemia Encounter for screening mammogram for malignant neoplasm of breast SANTO (obstructive sleep apnea) Obstructive sleep apnea (adult) (pediatric) COPD mixed type ([facility]) Anxiety and depression ([facility]) COVID Open wound Open wound(s) (multiple) of unspecified site(s), without mention of complication Morbid obesity with body mass index (BMI) of 40.0 to 49.9 ([facility] COPD mixed type ([facility])- Primary Dysuria Atrial fibrillation, unspecified type ([facility]) Gastroesophageal reflux disease, unspecified whether esophagitis present Type 2 diabetes mellitus with complication, without long-term current use of insulin ([facility]) Obesity (BMI 30-39.9) Tobacco user Tobacco use disorder Anxiety and depression ([facility]) Dermatitis Contact dermatitis and other eczema, due to unspecified cause Anxiety and depression ([facility])- Primary Obesity (BMI 30-39.9) Type 2 diabetes mellitus with complication, without long-term current use of insulin ([facility]) Medical non-compliance Tobacco user Tobacco use disorder Type 2 diabetes mellitus with hyperglycemia ([facility])- Primary Primary hypertension ([facility]) Unspecified essential hypertension Edema of extremities Edema Type 2 diabetes mellitus without complication, with long-term current use of insulin ([facility]) Vitamin D deficiency Tobacco user Tobacco use disorder Dizziness and giddiness Atrial fibrillation, unspecified type ([facility]) COPD mixed type ([facility]) Open wound of buttock, unspecified laterality, initial encounter- Primary Type 2 diabetes mellitus without complication, with long-term current use of insulin ([facility]) Obesity (BMI 30-39.9) Dizziness and giddiness Viral upper respiratory tract infection- Primary Acute upper respiratory infections of unspecified site Tobacco user Tobacco use disorder Open wound Open wound(s) (multiple) of unspecified site(s), without mention of complication Obesity (BMI 30-39.9) Type 2 diabetes mellitus without complication, with long-term current use of insulin ([facility]) Type 2 diabetes mellitus with hyperglycemia, with long-term current use of insulin ([facility])- Primary Encounter for dietary consultation Vitamin D deficiency Primary hypertension ([facility]) Unspecified essential hypertension Hyperlipemia, mixed ([facility]) Mixed hyperlipidemia Insulin long-term use ([facility]) Encounter for long-term (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 Class 1 obesity due to excess calories without serious comorbidity with body mass index (BMI) of 33.0 to 33.9 in adult documented in this encounter [facility] HealthcareEvaluation note* Diagnosis Open wound of buttock, unspecified laterality, initial encounter- Primary Type 2 diabetes mellitus without complication, with long-term current use of insulin ([facility]) Obesity (BMI 30-39.9) Dizziness and giddiness documented in this encounter [facility] HealthcareEvaluation note* Diagnosis Primary hypertension ([facility])- Primary Unspecified essential hypertension Type 2 diabetes mellitus with diabetic neuropathy, with long-term current use of insulin ([facility]) Gastroesophageal reflux disease, unspecified whether esophagitis present Vitamin D deficiency Type 2 diabetes mellitus with complication, without long-term current use of insulin ([facility]) Mixed hyperlipidemia ([facility]) Mixed hyperlipidemia Encounter for screening mammogram for malignant neoplasm of breast SANTO (obstructive sleep apnea) Obstructive sleep apnea (adult) (pediatric) COPD mixed type ([facility]) Anxiety and depression ([facility]) COVID Open wound Open wound(s) (multiple) of unspecified site(s), without mention of complication Morbid obesity with body mass index (BMI) of 40.0 to 49.9 ([facility]) COPD mixed type ([facility])- Primary Dysuria Atrial fibrillation, unspecified type ([facility]) Gastroesophageal reflux disease, unspecified whether esophagitis present Type 2 diabetes mellitus with complication, without long-term current use of insulin ([facility]) Obesity (BMI 30-39.9) Tobacco user Tobacco use disorder Anxiety and depression ([facility]) Dermatitis Contact dermatitis and other eczema, due to unspecified cause Anxiety and depression ([facility])- Primary Obesity (BMI 30-39.9) Type 2 diabetes mellitus with complication, without long-term current use of insulin ([facility]) Medical non-compliance Tobacco user Tobacco use disorder Type 2 diabetes mellitus with hyperglycemia ([facility])- Primary Primary hypertension ([facility]) Unspecified essential hypertension Edema of extremities Edema Type 2 diabetes mellitus without complication, with long-term current use of insulin ([facility]) Vitamin D deficiency Tobacco user Tobacco use disorder Dizziness and giddiness Atrial fibrillation, unspecified type ([facility]) COPD mixed type ([facility]) Open wound of buttock, unspecified laterality, initial encounter- Primary Type 2 diabetes mellitus without complication, with long-term current use of insulin ([facility]) Obesity (BMI 30-39.9) Dizziness and giddiness Viral upper respiratory tract infection- Primary Acute upper respiratory infections of unspecified site Tobacco user Tobacco use disorder Open wound Open wound(s) (multiple) of unspecified site(s), without mention of complication Obesity (BMI 30-39.9) Type 2 diabetes mellitus without complication, with long-term current use of insulin ([facility]) Encounter for wellness examination- Primary Osteoporosis, unspecified osteoporosis type, unspecified pathological fracture presence ([facility]) Open wound of buttock, unspecified laterality, initial encounter Type 2 diabetes mellitus without complication, with long-term current use of insulin ([facility]) Obesity (BMI 30-39.9) Tobacco user Tobacco use disorder Anxiety and depression ([facility]) Type 2 diabetes mellitus with diabetic neuropathy, with long-term current use of insulin ([facility]) COPD mixed type ([facility]) Diabetic polyneuropathy associated with type 2 diabetes mellitus ([facility]) Gastroesophageal reflux disease, unspecified whether esophagitis present Mixed hyperlipidemia ([facility]) Mixed hyperlipidemia Primary hypertension ([facility]) Unspecified essential hypertension Edema of extremities Edema [...] complication, with long-term current use of insulin (CMS/[facility]) Tobacco user Tobacco use disorder Needs flu shot Need for prophylactic vaccination and inoculation against influenza Right wrist pain- Primary Pain in joint, forearm Obesity (BMI 30-39.9) Lung nodule, multiple- Primary COPD mixed type (CMS/HCC) documented in this encounter [facility] HealthcareEvaluation note* Diagnosis Primary hypertension (CMS/[facility])- Primary Unspecified essential hypertension Type 2 diabetes mellitus with diabetic neuropathy, with long-term current use of insulin (CMS/[facility]) Gastroesophageal reflux disease, unspecified whether esophagitis present Vitamin D deficiency Type 2 diabetes mellitus with complication, without long-term current use of insulin (CMS/[facility]) Mixed hyperlipidemia (CMS/[facility]) Mixed hyperlipidemia Encounter for screening mammogram for malignant neoplasm of breast SANTO (obstructive sleep apnea) Obstructive sleep apnea (adult) (pediatric) COPD mixed type (CMS/HCC) Anxiety and depression (CMS/[facility]) COVID Open wound Open wound(s) (multiple) of unspecified site(s), without mention of complication Morbid obesity with body mass index (BMI) of 40.0 to 49.9 (CMS/[facility]) COPD mixed type (CMS/HCC)- Primary Dysuria Atrial fibrillation, unspecified type (CMS/[facility]) Gastroesophageal reflux disease, unspecified whether esophagitis present Type 2 diabetes mellitus with complication, without long-term current use of insulin (CMS/[facility]) Obesity (BMI 30-39.9) Tobacco user Tobacco use disorder Anxiety and depression (CMS/[facility]) Dermatitis Contact dermatitis and other eczema, due to unspecified cause Anxiety and depression (CMS/HCC)- Primary Obesity (BMI 30-39.9) Type 2 diabetes mellitus with complication, without long-term current use of insulin (CMS/[facility]) Medical non-compliance Tobacco user Tobacco use disorder Type 2 diabetes mellitus with hyperglycemia (CMS/[facility])- Primary Primary hypertension (CMS/[facility]) Unspecified essential hypertension Edema of extremities Edema Type 2 diabetes mellitus without complication, with long-term current use of insulin (CMS/[facility]) Vitamin D deficiency Tobacco user Tobacco use disorder Dizziness and giddiness Atrial fibrillation, unspecified type ([facility]) COPD mixed type ([facility]) Open wound of buttock, unspecified laterality, initial encounter- Primary Type 2 diabetes mellitus without complication, with long-term current use of insulin ([facility] [facility]) Obesity (BMI 30-39.9) Dizziness and giddiness Viral upper respiratory tract infection- Primary Acute upper respiratory infections of unspecified site Tobacco user Tobacco use disorder Open wound Open wound(s) (multiple) of unspecified site(s), without mention of complication Obesity (BMI 30-39.9) Type 2 diabetes mellitus without complication, with long-term current use of insulin ([facility]) Encounter for wellness examination- Primary Osteoporosis, unspecified osteoporosis type, unspecified pathological fracture presence ([facility]) Open wound of buttock, unspecified laterality, initial encounter Type 2 diabetes mellitus without complication, with long-term current use of insulin ([facility]) Obesity (BMI 30-39.9) Tobacco user Tobacco use disorder Anxiety and depression ([facility]) Type 2 diabetes mellitus with diabetic neuropathy, with long-term current use of insulin ([facility] COPD mixed type ([facility]) Diabetic polyneuropathy associated with type 2 diabetes mellitus ([facility]) Gastroesophageal reflux disease, unspecified whether esophagitis present Mixed hyperlipidemia ([facility]) Mixed hyperlipidemia Primary hypertension ([facility]) Unspecified essential hypertension Edema of extremities Edema Lung nodule, multiple Lymphadenopathy, generalized Vitamin D deficiency Oxygen dependent Dependence on supplemental oxygen Community acquired pneumonia, unspecified laterality COPD mixed type ([facility])- Primary SANTO (obstructive sleep apnea) Obstructive sleep apnea (adult) (pediatric) Lung nodule, multiple Community acquired pneumonia, unspecified laterality Primary hypertension ([facility]) Unspecified essential hypertension Atrial fibrillation, unspecified type ([facility]) Type 2 diabetes mellitus without complication, with long-term current use of insulin ([facility]) Tobacco user Tobacco use disorder Needs flu shot Need for prophylactic vaccination and inoculation against influenza Right wrist pain- Primary Pain in joint, forearm Obesity (BMI 30-39.9) 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 ([facility])- Primary documented in [facility] encounter [facility]* Diagnosis Primary hypertension ([facility])- Primary Unspecified essential hypertension Type 2 diabetes mellitus with diabetic neuropathy, with long-term current use of insulin ([facility]) Gastroesophageal reflux disease, unspecified whether esophagitis present Vitamin D deficiency Type 2 diabetes mellitus with complication, without long-term current use of insulin ([facility]) Mixed hyperlipidemia ([facility]) Mixed hyperlipidemia Encounter for screening mammogram for malignant neoplasm of breast SANTO (obstructive sleep apnea) Obstructive sleep apnea (adult) (pediatric) COPD mixed type ([facility]) Anxiety and depression ([facility]) COVID Open wound Open wound(s) (multiple) of unspecified site(s), without mention of complication Morbid obesity with body mass index (BMI) of 40.0 to 49.9 ([facility]) COPD mixed type ([facility])- Primary Dysuria Atrial fibrillation, unspecified type ([facility]) Gastroesophageal reflux disease, unspecified whether esophagitis present Type 2 diabetes mellitus with complication, without long-term current use of insulin ([facility]) Obesity (BMI 30-39.9) Tobacco user Tobacco use disorder Anxiety and depression ([facility]) Dermatitis Contact dermatitis and other eczema, due to unspecified cause Anxiety and depression ([facility])- Primary Obesity (BMI 30-39.9) Type 2 diabetes mellitus with complication, without long-term current use of insulin ([facility]) Medical non-compliance Tobacco user Tobacco use disorder Type 2 diabetes mellitus with hyperglycemia ([facility])- Primary Primary hypertension ([facility]) Unspecified essential hypertension Edema of extremities Edema Type 2 diabetes mellitus without complication, with long-term current use of insulin ([facility]) Vitamin D deficiency Tobacco user Tobacco use disorder Dizziness and giddiness Atrial fibrillation, unspecified type ([facility]) COPD mixed type ([facility]) Open wound of buttock, unspecified laterality, initial encounter- Primary Type 2 diabetes mellitus without complication, with long-term current use of insulin ([facility]) Obesity (BMI 30-39.9) Dizziness and giddiness Viral upper respiratory tract infection- Primary Acute upper respiratory infections of unspecified site Tobacco user Tobacco use disorder Open wound Open wound(s) (multiple) of unspecified site(s), without mention of complication Obesity (BMI 30-39.9) Type 2 diabetes mellitus without complication, with long-term current use of insulin ([facility]) Encounter for wellness examination- Primary Osteoporosis, unspecified osteoporosis type, unspecified pathological fracture presence ([facility]) Open wound of buttock, unspecified laterality, initial encounter Type 2 diabetes mellitus without complication, with long-term current use of insulin ([facility]) Obesity (BMI 30-39.9) Tobacco user Tobacco use disorder Anxiety and depression (CMS/HCC) Type 2 diabetes mellitus with diabetic neuropathy, with long-term current use of insulin (CMS/[facility]) COPD mixed type (CMS/HCC) Diabetic polyneuropathy associated with type 2 diabetes mellitus (CMS/[facility]) Gastroesophageal reflux disease, unspecified whether esophagitis present Mixed hyperlipidemia (CMS/HCC) Mixed hyperlipidemia Primary hypertension (CMS/HCC) Unspecified essential hypertension Edema of extremities Edema Lung nodule, multiple Lymphadenopathy, generalized Vitamin D deficiency Oxygen dependent Dependence on supplemental oxygen Community acquired pneumonia, unspecified laterality COPD mixed type (CMS/HCC)- Primary SANTO (obstructive sleep apnea) Obstructive sleep apnea (adult) (pediatric) Lung nodule, multiple Community acquired pneumonia, unspecified laterality Primary hypertension ([facility]) Unspecified essential hypertension Atrial fibrillation, unspecified type (CMS/[facility]) Type 2 diabetes mellitus without complication, with long-term current use of insulin ([facility]) Tobacco user Tobacco use disorder Needs flu shot Need for prophylactic vaccination and inoculation against influenza Right wrist pain- Primary Pain in joint, forearm Obesity (BMI 30-39.9) 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 (CMS/[facility])- Primary Oxygen dependent- Primary Dependence on supplemental oxygen COPD mixed type ([facility]) Obesity (BMI 30-39.9) COPD with acute exacerbation ([facility]) documented in this encounter [facility] HealthcareEvaluation note* Diagnosis Primary hypertension ([facility])- Primary Unspecified essential hypertension Type 2 diabetes mellitus with diabetic neuropathy, with long-term current use of insulin ([facility]) Gastroesophageal reflux disease, unspecified whether esophagitis present Vitamin D deficiency Type 2 diabetes mellitus with complication, without long-term current use of insulin ([facility]/HCC) Mixed hyperlipidemia ([facility]) Mixed hyperlipidemia Encounter for screening mammogram for malignant neoplasm of breast SANTO (obstructive sleep apnea) Obstructive sleep apnea (adult) (pediatric) COPD mixed type (CMS/HCC) Anxiety and depression ([facility]/HCC) COVID Open wound Open wound(s) (multiple) of unspecified site(s), without mention of complication Morbid obesity with body mass index (BMI) of 40.0 to 49.9 ([facility]) COPD mixed type (CMS/HCC)- Primary Dysuria Atrial fibrillation, unspecified type (CMS/HCC) Gastroesophageal reflux disease, unspecified whether esophagitis present Type 2 diabetes mellitus with complication, without long-term current use of insulin ([facility]) Obesity (BMI 30-39.9) Tobacco user Tobacco use disorder Anxiety and depression ([facility]) Dermatitis Contact dermatitis and other eczema, due to unspecified cause Anxiety and depression ([facility])- Primary Obesity (BMI 30-39.9) Type 2 diabetes mellitus with complication, without long-term current use of insulin ([facility]) Medical non-compliance Tobacco user Tobacco use disorder Type 2 diabetes mellitus with hyperglycemia ([facility])- Primary Primary hypertension ([facility]) Unspecified essential hypertension Edema of extremities Edema Type 2 diabetes mellitus without complication, with long-term current use of insulin ([facility]) Vitamin D deficiency Tobacco user Tobacco use disorder Dizziness and giddiness Atrial fibrillation, unspecified type ([facility]) COPD mixed type ([facility]) Open wound of buttock, unspecified laterality, initial encounter- Primary Type 2 diabetes mellitus without complication, with long-term current use of insulin ([facility]) Obesity (BMI 30-39.9) Dizziness and giddiness Viral upper respiratory tract infection- Primary Acute upper respiratory infections of unspecified site Tobacco user Tobacco use disorder Open wound Open wound(s) (multiple) of unspecified site(s), without mention of complication Obesity (BMI 30-39.9) Type 2 diabetes mellitus without complication, with long-term current use of insulin ([facility]) Encounter for wellness examination- Primary Osteoporosis, unspecified osteoporosis type, unspecified pathological fracture presence ([facility]) Open wound of buttock, unspecified laterality, initial encounter Type 2 diabetes mellitus without complication, with long-term current use of insulin ([facility]) Obesity (BMI 30-39.9) Tobacco user Tobacco use disorder Anxiety and depression ([facility]) Type 2 diabetes mellitus with diabetic neuropathy, with long-term current use of insulin ([facility]) COPD mixed type ([facility]) Diabetic polyneuropathy associated with type 2 diabetes mellitus ([facility]) Gastroesophageal reflux disease, unspecified whether esophagitis present Mixed hyperlipidemia ([facility]) Mixed hyperlipidemia Primary hypertension ([facility]) Unspecified essential hypertension Edema of extremities Edema Lung nodule, multiple Lymphadenopathy, generalized Vitamin D deficiency Oxygen dependent Dependence on supplemental oxygen Community acquired pneumonia, unspecified laterality COPD mixed type ([facility]/HCC)- Primary SANTO (obstructive sleep apnea) Obstructive sleep [...] to 4 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 (CMS/HCC)- Primary COPD with acute exacerbation (CMS/HCC)- Primary Oxygen dependent Dependence on supplemental oxygen COPD mixed type (CMS/HCC) Obesity (BMI 30-39.9) COPD mixed type (CMS/HCC) documented in this encounter [facility] (narrative)* Consultation (Routine) - Pending Review Specialty Diagnoses / Procedures Referred By Darcie joshua Referred To Contact Wound Care Diagnoses Open wound Type 2 diabetes mellitus without complication, with long-term current use of insulin (CMS/HCC) Procedures ID OFFICE/OUTPATIENT NEW HIGH MDM 60 MINUTES Maira Rush NP [address] [place] [address] Referral ID Status Reason Start Date Expiration Date Visits Requested Visits Authorized [id number] Pending Review Specialty Services Required 03/11/2024 09/07/2024 1 1 Scheduling Instructions Please call [facility] and schedule pt with their wound [...] Referral Specialty Diagnoses / Procedures Referred By Contalbaro joshua Referred To Contact Diagnoses COPD mixed type (CMS/HCC) Maira Rush NP [address] [place] [address] Referral ID Status Reason Start Date Expiration Date V isits Requested Visits Authorized [id number] Pending Review 1 1 Additional Source Comments INFORMATION SOURCE (unrecogn ized section and content) DATE CREATED AUTHOR 10/06/2018 [facility] DATE CREATED AUTHOR AUTHOR'S ORGANIZ ATION 10/09/2022 [facility] DATE CREATED AUTHOR AUTHOR'S ORGANIZ ATION 09/05/2023 [facility] DATE CREATED AUTHOR AUTHOR'S ORGANIZ ATION 01/25/2024 [facility] DATE CREATED AUTHOR AUTHOR'S ORGANIZ ATION 02/14/2024 [facility] DATE CREATED AUTHOR AUTHOR'S ORGANIZ ATION 03/22/2024 [facility] DATE CREATED AUTHOR AUTHOR'S ORGANIZ ATION 05/29/2024 [facility] dical Specialists [employer] Care Teams (unrecognized sec tion and content) 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 Specialty Start Date End Date Brandon Mcfarlane MD [address] [place] [phone] PCP - General Family Medicine 06/26/23 Maira Rush NP [address] [place] [phone] Referring Physician Nurse Practitioner 12/17/22 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 Specialty Start Date End Date Brandon Mcfarlane MD [address] [place] [phone] PCP - General Family Medicine 06/26/23 Maira Rush NP [address] [place] [phone] Referring Physician Nurse Practitioner 12/17/22 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 Specialty Start Date End Date Brandon Mcfarlane MD [address] [place] [phone] PCP - General Family Medicine 06/26/23 Maira Rush NP [address] [place] [phone] Referring Physician Nurse Practitioner 12/17/22 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 Specialty Start Date End Date Brandon Mcfarlane MD [address] [place] [phone] PCP - General Family Medicine 06/26/23 Maira Rush NP [address] [place] [phone] Referring Physician Nurse Practitioner 12/17/22 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 Specialty Start Date End Date Brandon Mcfarlane MD [address] [place] [phone] PCP - General Family Medicine 06/26/23 Maira Rush NP [address] [place] [phone] Referring Physician Nurse Practitioner 12/17/22 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 Specialty Start Date End Date Brandon Mcfarlane MD [address] [place] [phone] PCP - General Family Medicine 06/26/23 Maira Rush NP [address] [place] [phone] Referring Physician Nurse Practitioner 12/17/22 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 Specialty Start Date End Date Brandon Mcfarlane MD [address] [place] [phone] PCP - General Family Medicine 06/26/23 Maira Rush NP [address] [place] [phone] Referring Physician Nurse Practitioner 12/17/22 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 Specialty Start Date End Date Brandon Mcfarlane MD [address] [place] [phone] PCP - General Family Medicine 06/26/23 Maira Rush NP [address] [place] [phone] Referring Physician Nurse Practitioner 12/17/22 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 Specialty Start Date End Date Maira Rush, RESIDENTIAL YOU[employer] COUNSELOR-[employer] S[employer] CLERK PCP - General Nurse Practitioner 01/16/24 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 Specialty Start Date End Date Brandon Mcfarlane MD [address] [place] [phone] PCP - General Family Medicine 06/26/23 Maira Rush NP [address] [place] [address] Referring Physician Nurse Practitioner 12/17/22 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 Specialty Start Date End Date Brandon Mcfarlane MD [address] [place] [phone] PCP - General Family Medicine 06/26/23 Maira Rush NP [address] [place] [phone] Referring Physician Nurse Practitioner 12/17/22 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 Specialty Start Date End Date Brandon Mcfarlane MD [address] [place] [address] PCP - General Family Medicine 06/26/23 Maira Rush NP [address] [place] [address] Referring Physician Nurse Practitioner 12/17/22 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 Specialty Start Date End Date Brandon Mcfarlane MD [address] [place] [address] PCP - General Family Medicine 06/26/23 Maira Rush NP [address] [place] [address] Referring Physician Nurse Practitioner 12/17/22 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 Specialty Start Date End Date Brandon Mcfarlane MD [address] [place] [address] PCP - General Family Medicine 06/26/23 Maira Rush NP [address] [place] [address] Referring Physician Nurse Practitioner 12/17/22 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 Specialty Start Date End Date Brandon Mcfarlane MD [address] [place] [address] PCP - General Family Medicine 06/26/23 Maira Rush NP [address] [place] [address] Referring Physician Nurse Practitioner 12/17/22 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 Specialty Start Date End Date Brandon Mcfarlane MD [address] [place] [address] PCP - General Family Medicine 06/26/23 Maira Rush NP [address] [place] [address] Referring Physician Nurse Practitioner 12/17/22 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 Specialty Start Date End Date Brandon Mcfarlane MD [address] [place] [phone] PCP - General Family Medicine 06/26/23 Maira Rush NP [address] [place] [phone] Referring Physician Nurse Practitioner 12/17/22 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 Specialty Start Date End Date Brandon Mcfarlane MD [address] [place] [phone] PCP - General Family Medicine 06/26/23 Maira Rush NP [address] [place] [address] Referring Physician Nurse Practitioner 12/17/22 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 Specialty Start Date End Date Brandon Mcfarlane MD [address] [place] [address] PCP - General Family Medicine 06/26/23 Maira Rush NP [address] [place] [address] Referring Physician Nurse Practitioner 12/17/22 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 Specialty Start Date End Date Brandon Mcfarlane MD [address] [place] [phone] PCP - General Family Medicine 06/26/23 Maira Rush NP [address] [place] [address] Referring Physician Nurse Practitioner 12/17/22 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 Specialty Start Date End Date Brandon Mcfarlane MD [address] [place] [phone] PCP - General Family Medicine 06/26/23 Maira Rush NP [address] [place] [address] Referring Physician Nurse Practitioner 12/17/22 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 Specialty Start Date End Date Brandon Mcfarlane MD [address] [place] [phone] PCP - General Family Medicine 06/26/23 Maira Rush NP [address] [place] [address] Referring Physician Nurse Practitioner 12/17/22 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 Specialty Start Date End Date Brandon Mcfarlane MD [address] [place] [address] PCP - General Family Medicine 06/26/23 Maira Rush NP [address] [place] [address] Referring Physician Nurse Practitioner 12/17/22 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 Specialty Start Date End Date Brandon Mcfarlane MD [address] [place] [phone] PCP - General Family Medicine 06/26/23 Maira Rush NP [address] [place] [address] Referring Physician Nurse Practitioner 12/17/22 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 Specialty Start Date End Date Brandon Mcfarlane MD [address] [place] [address] PCP - General Family Medicine 06/26/23 Maira Rush NP [address] [place] [address] Referring Physician Nurse Practitioner 12/17/22 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 [address] Phone: tel: fax: [facility] [address] [place] [address] Phone: tel: fax: Referral ID Status Reason Start Date Expiration Date Visits Requested Visits Authorized [id number] Pending Review Specialty Services Required 4 03/13/2025 1 1 Reason Comments Diabetes Annual Exam Reason Comments Joint Swelling Reason Comments Diabetes Follow-up 1.5 YRS Reason Comments Cough URI Reason Comments Med Refill FOR RECORDS PERTAINING TO PATIENTS WHO ARE [...] BE BASED ON THE PRIMARY CLINICAL RECORDS. [employer] provides no warranty or guarantee of the accuracy or completeness of information in this document.
[2024-06-01 00:37] LABS: Glucometer 430 mg/dL (74-106)
[2024-06-01 00:41] LABS: Basophils Percent Auto 0.1 % (0.2-2.0); Hematocrit 47.2 % (36.0-48.0); Hemoglobin 15.7 g/dL (12.0-16.0); Immature Granulocytes Abs Auto 0.05 10^3/uL (0.00-0.03); Immature Granulocytes Pct Auto 0.4 % (0.0-0.5); Lymphocytes Absolute Auto 1.9 10^3/uL (1.2-3.8); Lymphocytes Percent Auto 13.7 % (20.5-60.0); Mean Corpuscular HGB Conc 33.3 g/dL (29.9-35.2); Mean Corpuscular Hemoglobin 31.4 pg (26.7-34.0); Mean Corpuscular Volume 94.4 fL (81.0-99.0); Mean Platelet Volume 10.4 fL (9.5-13.5); Monocytes Absolute Auto 0.7 10^3/uL (0.3-0.8); Monocytes Percent Auto 5.1 % (1.7-12.0); Neutrophils Absolute Auto 11.3 10^3/uL (1.4-6.5); Neutrophils Percent Auto 80.7 % (43.0-75.0); Platelet Count 275 10^3/uL (150-450); Red Cell Distribution Width 12.3 % (11.0-15.0)
[2024-06-01 00:42] LABS: PCO2 VBG 49.8 mmHg (40.0-52.0); pH VBG 7.364 (7.330-7.430)
[2024-06-01 00:54] LABS: BUN Creatinine Ratio 25.5; Calcium 9.2 mg/dL (8.5-10.1); Carbon Dioxide 28.5 mmol/L (21.0-32.0); Chloride 103 mmol/L (98-107); Estimated GFR (African America >60 (>=60 mL/min/1.73m^2); Estimated GFR (Non-African Ame 57 (>=60 mL/min/1.73m^2); Glucose 480 mg/dL (74-106); Potassium 3.5 mmol/L (3.5-5.1); Sodium 137 mmol/L (136-145)
[2024-06-01 00:55] VITALS: O2SAT 98
[2024-06-01 00:55] LABS: Acetone NEGATIVE (NEGATIVE)
--- NOTE | 2024-06-01 00:55 | PC.NURSE ---
Patient arrived on 2L oxygen that she wears per her baseline
[2024-06-01 00:57] LABS: Bilirubin Urine NEGATIVE (NEGATIVE); Blood Urine NEGATIVE (NEGATIVE); Clarity Urine CLEAR (CLEAR); Color Urine LT. YELLOW (YELLOW); Glucose Urine UA >=1000 mg/dL (NEGATIVE); Ketones Urine NEGATIVE (NEGATIVE); Leukocyte Esterase Urine NEGATIVE (NEGATIVE); Nitrite Urine NEGATIVE (NEGATIVE); Protein Urine NEGATIVE (NEG/TRACE); Specific Gravity Urine <=1.005 (1.005-1.025); Urobilinogen Urine 0.2 EU/dL (0.2-1.0); pH Urine 5.5 (5.0-9.0)
[2024-06-01 01:03] LABS: Bacteria Urine NONE SEEN #/HPF (NONE SEEN); Cast Seen? NONE SEEN #/LPF (NONE SEEN); Crystals Seen? None Seen #/HPF (None Seen); Mucus Urine NONE SEEN (NONE SEEN); RBC Urine 0-2 #/HPF (0-2); Squamous Epithelial Cell Urine RARE #/LPF (NONE/RARE); Urine Culture Indicated NO; WBC Urine 0-2 #/HPF (NONE SEEN)
[2024-06-01] MEDS: INSULIN REGULAR, HUMAN (100 UNIT/ML) 10 ML MDV 10 UNIT IV (01:35)
[2024-06-01 02:32] LABS: Glucometer 207 mg/dL (74-106)
[2024-06-01 03:22] VITALS: BP 148/68; PULSE 58; O2SAT 96
== END 2024-06-01 03:28 | disposition home or self-care (01) ==
PROVIDERS: Emergency Provider Emergency Medicine; PCP Nurse Practitioner
DX: E11.65 Type 2 diabetes mellitus with hyperglycemia (principal); Z79.4 Long term (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; T38.0X5A Adverse effect of glucocorticoids and synthetic analogues, initial encounter; Z90.49 Acquired absence of other specified parts of digestive tract; Z90.710 Acquired absence of both cervix and uterus; F17.200 Nicotine dependence, unspecified, uncomplicated
CPT/HCPCS: 36415; 80048; 81001; 82009; 82800; 85025; 93005; 99284; J1817

== ENCOUNTER 2024-07-06 08:51 | Outpatient (OUT) | payer OTHER, SELFPAY ==
--- NOTE | 2024-07-06 09:36 | CT_ITS ---
[address] [address] Patient Name: RODDY HORN MRN: [id number] date: 1960 Sex: F Assigned Patient Location: CT Current Patient Location: Accession/Order Number: [id number] Exam Date: 07/06/2024 09:03 Report Date: 07/08/2024 11:52 At the request of: RAMESH WILD Procedure: CT abdomen wo/w con EXAMINATION: CT abdomen wo/w con HISTORY: Adrenal Mass ; follow-up right adrenal mass COMPARISON: CT chest 05/25/2024 TECHNIQUE: Axial, Coronal, and Sagittal images were obtained without and/or with IV contrast as indicated by examination type. Dose reduction techniques were achieved by using automated exposure control and/or adjustment of mA and/or kV according to patient size and/or use of iterative reconstruction technique FINDINGS: LUNG BASES: Round smoothly circumscribed 8 mm nodule within posterior right lung base. LIVER: No enlargement, atrophy, abnormal density, or significant focal lesion. BILIARY: Cholecystectomy. PANCREAS: No lesion, fluid collection, ductal dilatation, or atrophy. SPLEEN: No enlargement or focal lesion. ADRENALS: 2.4 cm low-density right adrenal mass. Absolute washout equals 80%. Relative washout equals 79%. Both are strongly suggestive of an adrenal adenoma. KIDNEYS: No mass, obstruction, or calcification. BOWEL/MESENTERY: No visible mass, obstruction, or bowel wall thickening. AORTA/VASCULAR: No aneurysm or dissection. RETROPERITONEUM: No mass or adenopathy. ABDOMINAL WALL: No mass or hernia. BONES: No bone lesion or fracture. OTHER: Negative. CT/CT abdomen wo/w con IMPRESSION: 1 Right adrenal mass 2.4 cm size which compatible with a benign adrenal adenoma. No additional follow-up recommended at this time. Electronically authenticated by: ROBERT AZUL Date: 07/08/2024 11:52
== END 2024-07-06 08:52 | disposition home or self-care (01) ==
LOC: CT 08:51
PROVIDERS: PCP Nurse Practitioner; Visit Provider Nurse Practitioner
DX: E27.8 Other specified disorders of adrenal gland (principal)
CPT/HCPCS: 74170; Q9967

== ENCOUNTER 2024-09-28 11:26 | Emergency (ER) | payer OTHER, SELFPAY ==
[2024-09-28 11:33] VITALS: BP 151/94; PULSE 93; TEMP 36.8; O2SAT 97; BMI 32.0
--- NOTE | 2024-09-28 11:57 | ED_ITS ---
HPI HPI - General Adult General Chief complaint: Skin/Abscess/Foreign Body Stated complaint: boil in private area Time Seen by Provider: 09/28/24 11:44 Source: patient Mode of arrival: walk-in Limitations: no limitations History of Present Illness HPI narrative: The patient is a 64-year-old female is coming to the ER with a left groin swelling that she noticed for the last 1 week and a half, patient is complaining of localized pain she denies any fever, she denies any nausea vomiting or any other concerns The patient is otherwise have no other complaint Related Data Home Medications ?Medication ?Instructions ?Recorded ?Confirmed aspirin 81 mg tablet,delayed 81 mg PO DAILY 04/05/23 02/24/24 release budesonide-formoterol HFA 160 2 puff inhalation BID 04/05/23 02/24/24 mcg-4.5 mcg/actuation aerosol inhaler (Symbicort) calcium 500 mg (as 1 tab PO BID 04/05/23 01/03/24 carbonate)-vitamin D3 10 mcg (400 unit) tablet carvedilol 12.5 mg tablet 12.5 mg PO BID 04/05/23 02/24/24 empagliflozin 25 mg tablet 25 mg PO DAILY 04/05/23 02/24/24 (Jardiance) gabapentin 600 mg tablet 600 mg PO TID 04/05/23 02/24/24 insulin aspart U-100 100 unit/mL 1 sliding scale dose subcut 04/05/23 02/24/24 (3 mL) subcutaneous pen (Novolog TIDWMEAL FlexPen U-100 Insulin aspart) insulin glargine 100 unit/mL (3 60 unit subcut QPM 04/05/23 02/24/24 mL) subcutaneous pen (Lantus Solostar U-100 Insulin) losartan 100 mg tablet 100 mg PO DAILY 04/05/23 02/24/24 pantoprazole 40 mg tablet,delayed 40 mg PO DAILY 04/05/23 02/24/24 release potassium chloride 10 mEq 10 meq PO DAILY 04/05/23 02/24/24 capsule,extended release rivaroxaban 20 mg tablet (Xarelto) 20 mg PO DAILY 04/05/23 02/24/24 rosuvastatin 5 mg tablet 5 mg PO DAILY 04/05/23 02/24/24 spironolactone 25 mg tablet 25 mg PO BID 04/05/23 02/24/24 tiotropium bromide 2.5 2 puff inhalation DAILY 04/05/23 02/24/24 mcg/actuation mist for inhalation (Spiriva Respimat) furosemide 20 mg tablet 20 mg PO DAILY 01/03/24 02/24/24 paroxetine HCl 10 mg tablet 10 mg PO DAILY 02/24/24 02/24/24 Previous Rx's ?Medication ?Instructions ?Recorded albuterol sulfate 90 mcg/actuation 2 inh inhalation Q4H PRN shortness 06/25/23 aerosol inhaler of breath or wheezing #8.5 grams albuterol sulfate 2.5 mg/3 mL 2.5 mg (3 mL) inhalation Q6H PRN 09/16/23 (0.083 %) solution for nebulization shortness of breath or wheezing #90 mL meclizine 25 mg tablet 25 mg PO TID PRN dizziness #15 tabs 02/24/24 benzonatate 100 mg capsule 100 mg PO TID PRN cough #20 caps 04/10/24 guaifenesin 600 mg tablet, 600 mg PO BID PRN congestion #14 05/28/24 extended release 12 hr (Mucinex) tabs prednisone 20 mg tablet 40 mg (2 x 20 mg) PO DAILY 5 days 05/28/24 #10 tabs doxycycline hyclate 100 mg tablet 100 mg PO BID 7 days #14 tabs 09/28/24 Allergies Allergy/AdvReac Type Severity Reaction Status Date / Time ciprofloxacin (From Cipro) AdvReac Intermediate Vomiting Verified 09/28/24 11:33 metronidazole (From Flagyl) AdvReac Intermediate Vomiting Verified 09/28/24 11:33 Penicillins AdvReac Intermediate Vomiting Verified 09/28/24 11:33 sulfamethoxazole (From AdvReac Intermediate Vomiting Verified 09/28/24 11:33 Bactrim) trimethoprim (From Bactrim) AdvReac Intermediate Vomiting Verified 09/28/24 11:33 Opioid HPI Opioid Management Most Recent Opioid Data: Last Pain Scale 6 09/28/24 11:56 09/28/24 Review of Systems ROS Status of ROS 10 or more systems reviewed and unremark able except as noted in history and below [facility] Medical History (Updated 09/28/24 @ 11:58 by Anushka Carbajal MD) A-fib ?I48.91 - Unspecified atrial fibrillation (ICD-10) Hypertension ?I10 - Essential (primary) hypertension (ICD-10) Diabetes ?E11.9 - Type 2 diabetes mellitus without complications (ICD-10) Acute shoulder pain ?M25.519 - Pain in unspecified shoulder (ICD-10) Hyperlipidemia ?E78.5 - Hyperlipidemia, unspecified (ICD-10) Depression ?F32.A - Depression, unspecified (ICD-10) Chronic obstructive pulmonary disease ?J44.9 - Chronic obstructive pulmonary disease, unspecified (ICD-10) Surgical History (Updated 06/24/23 @ 12:13 by Aliyah Ruiz RN) History of appendectomy ?Z90.49 - Acquired absence of other specified parts of digestive tract (ICD- 10) Hx of cholecystectomy ?Z90.49 - Acquired absence of other specified parts of digestive tract (ICD- 10) H/O: hysterectomy ?Z90.710 - Acquired absence of both cervix and uterus (ICD-10) Family History (Updated 06/24/23 @ 12:13 by Aliyah Ruiz RN) Mother Family history of diabetes mellitus Grandfather Family history of diabetes mellitus Father Family history of stroke Social History Within the past year, how often did you have a drink containing alcohol: never Score interpretation: A score less than 3 is consistent with normal alcohol consumption. Smoking status: Current every day smoker Non-prescribed substance use: denies use Highest level of school completed/degree received: high school graduate Little interest or pleasure in doing things: not at all Feeling down, depressed, or hopeless: not at all Gender Identity: female Exam Narrative Exam Narrative: Nurses notes and vital signs reviewed and patient is not hypoxic. General: Well-appearing and in no apparent distress. Skin: Warm, dry, no pallor noted. No rash. Head: Normocephalic, atraumatic. Neck: Supple, non-tender. Cardiovascular: Regular Rate and Rhythm without murmur, gallop or rub. Respiratory: No accessory muscle use or respiratory distress. Lungs are clear to auscultation, no wheezing, rales or rhonchi Chest Wall: no tenderness Back: No midline thoracic or lumbar vertebral tenderness. No CVA tenderness Musculoskeletal: normal ROM, no calf or popliteal tenderness, no lower extremity edema/swelling GI: Abdomen is soft, non-distended. Normal bowel sounds. No masses appreciated. The patient is complaining of in the left groin area with a area of indurated skin and lymphadenopathy in the left femoral area, there is no fluctuation the area is almost 2 cm x 1 cm and showing no redness and no surrounding induration or tenderness, the area of tenderness is very localized with a possible skin induration overlying the lymphadenopathy Neurological: A&O x4. No cranial nerve dysfunction observed. Moves all extremities. Sensation intact. Psychiatric: Cooperative and interactive. Normal mood and affect. Constitutional Vital Signs, click to edit/add: Last Vital Signs Temp 98.2 F 09/28/24 11:33 Pulse 93 H 09/28/24 11:33 Resp 18 09/28/24 11:33 BP 151/94 H 09/28/24 11:33 Pulse Ox 97 09/28/24 11:33 O2 Del Method Room Air 09/28/24 11:33 Course Vital Signs Vital signs: Vital Signs Temperature 98.2 F 09/28/24 11:33 Pulse Rate 93 H 09/28/24 11:33 Respiratory Rate 18 09/28/24 11:33 Blood Pressure 151/94 H 09/28/24 11:33 Pulse Oximetry 97 09/28/24 11:33 Oxygen Delivery Method Room Air 09/28/24 11:33 Temperature 98.2 F 09/28/24 11:33 Pulse Rate 93 H 09/28/24 11:33 Respiratory Rate 18 09/28/24 11:33 Blood Pressure 151/94 H 09/28/24 11:33 Pulse Oximetry 97 09/28/24 11:33 Oxygen Delivery Method Room Air 09/28/24 11:33 Medical Decision Making [facility] Narrative Medical decision making narrative: The patient presentation is mostly secondary to lymphadenopathy with a some area of skin induration with no fluctuation that would require any incision and drainage at the moment, The patient was started on doxycycline instructed to monitor his symptoms in case of increasing pain or any fever she is to come back to the ER The patient is to follow up with primary care physician in next 2-3 days or to return to the emergency department should any of the signs or symptoms worsen or new symptoms develop. The patient agrees with the following Diagnosis and Treatment plan and the patient will be discharged home. Discharge Plan Discharge Chief Complaint: Skin/Abscess/Foreign Body Clinical Impression: Abscess Patient Disposition: Home, Self-Care Time of Disposition Decision: 11:58 Condition: Good Prescriptions / Home Meds: New doxycycline hyclate 100 mg tablet 100 mg PO BID 7 Days Qty: 14 0RF Discontinued doxycycline hyclate 100 mg tablet 100 mg PO BID 7 Days Qty: 14 0RF No Action albuterol sulfate 90 mcg/actuation HFA aerosol inhaler 2 inh inhalation Q4H PRN (Reason: shortness of breath or wheezing) Qty: 8.5 0RF albuterol sulfate 2.5 mg /3 mL (0.083 %) solution for nebulization 2.5 mg inhalation Q6H PRN (Reason: shortness of breath or wheezing) Qty: 90 0RF furosemide 20 mg tablet 20 mg PO DAILY aspirin 81 mg tablet,delayed release (DR/EC) 81 mg PO DAILY budesonide-formoterol [Symbicort] 160-4.5 mcg/actuation HFA aerosol inhaler 2 puff INHALATION BID calcium carbonate-vitamin D3 500 mg-10 mcg (400 unit) tablet 1 tab PO BID carvedilol 12.5 mg tablet 12.5 mg PO BID Jardiance 25 mg tablet 25 mg PO DAILY gabapentin 600 mg tablet 600 mg PO TID insulin aspart U-100 [Novolog FlexPen U-100 Insulin] 100 unit/mL (3 mL) insulin pen 1 sliding scale dose SUBCUT TIDWMEAL insulin glargine [Lantus Solostar U-100 Insulin] 100 unit/mL (3 mL) insulin pen 60 unit SUBCUT QPM losartan 100 mg tablet 100 mg PO DAILY pantoprazole 40 mg tablet,delayed release (DR/EC) 40 mg PO DAILY potassium chloride 10 mEq capsule, extended release 10 meq PO DAILY Xarelto 20 mg tablet 20 mg PO DAILY rosuvastatin 5 mg tablet 5 mg PO DAILY spironolactone 25 mg tablet 25 mg PO BID Spiriva Respimat 2.5 mcg/actuation mist 2 puff INHALATION DAILY paroxetine HCl 10 mg tablet 10 mg PO DAILY meclizine 25 mg tablet 25 mg PO TID PRN (Reason: dizziness) Qty: 15 0RF benzonatate 100 mg capsule 100 mg PO TID PRN (Reason: cough) Qty: 20 0RF prednisone 20 mg tablet 40 mg PO DAILY 5 Days Qty: 10 0RF guaifenesin [Mucinex] 600 mg tablet extended release 12hr 600 mg PO BID PRN (Reason: congestion) Qty: 14 0RF Print Language: Japanese Instructions: Abscess (ED) Referrals: Maira Rush [employer] BANDER [Primary Care Provider] - 1 week Discharge Date/Time: 09/28/24 12:13
[2024-09-28] MEDS: DOXYCYCLINE MONOHYDRATE 100 MG CAPSULE PO (12:04)
== END 2024-09-28 12:13 | disposition home or self-care (01) ==
PROVIDERS: Emergency Provider Emergency Medicine; PCP Nurse Practitioner
DX: L02.214 Cutaneous abscess of groin (principal); Z90.49 Acquired absence of other specified parts of digestive tract; Z90.710 Acquired absence of both cervix and uterus; F17.200 Nicotine dependence, unspecified, uncomplicated
CPT/HCPCS: 99283

== ENCOUNTER 2024-10-03 18:07 | Observation (INO) | payer OTHER, SELFPAY ==
[2024-10-03 18:11] VITALS: BP 159/94; PULSE 88; BMI 32.3
--- NOTE | 2024-10-03 18:23 | ED.GENADUL1 ---
HPI HPI - General Adult General Chief complaint: Skin/Abscess/Foreign Body Stated complaint: PAIN IN GROIN AREA Time Seen by Provider: 10/03/24 18:08 Source: patient Mode of arrival: walk-in Limitations: no limitations History of Present Illness HPI narrative: The patient is a diabetic patient who is 64 years old is coming to the ER with a left groin pain that did not respond to p.o. antibiotic, the patient was provided with that few days ago when she was evaluated for the same kind of pain. Mentioned that now it is the area is more red and swollen she denies any fever or chills and it is not easy to walk around because of the pain The pain is in the left side. Related Data Home Medications ?Medication ?Instructions ?Recorded ?Confirmed aspirin 81 mg tablet,delayed 81 mg PO DAILY 04/05/23 02/24/24 release budesonide-formoterol HFA 160 2 puff inhalation BID 04/05/23 02/24/24 mcg-4.5 mcg/actuation aerosol inhaler (Symbicort) calcium 500 mg (as 1 tab PO BID 04/05/23 01/03/24 carbonate)-vitamin D3 10 mcg (400 unit) tablet carvedilol 12.5 mg tablet 12.5 mg PO BID 04/05/23 02/24/24 empagliflozin 25 mg tablet 25 mg PO DAILY 04/05/23 02/24/24 (Jardiance) gabapentin 600 mg tablet 600 mg PO TID 04/05/23 02/24/24 insulin aspart U-100 100 unit/mL 1 sliding scale dose subcut 04/05/23 02/24/24 (3 mL) subcutaneous pen (Novolog TIDWMEAL FlexPen U-100 Insulin aspart) insulin glargine 100 unit/mL (3 60 unit subcut QPM 04/05/23 02/24/24 mL) subcutaneous pen (Lantus Solostar U-100 Insulin) losartan 100 mg tablet 100 mg PO DAILY 04/05/23 02/24/24 pantoprazole 40 mg tablet,delayed 40 mg PO DAILY 04/05/23 02/24/24 release potassium chloride 10 mEq 10 meq PO DAILY 04/05/23 02/24/24 capsule,extended release rivaroxaban 20 mg tablet (Xarelto) 20 mg PO DAILY 04/05/23 02/24/24 rosuvastatin 5 mg tablet 5 mg PO DAILY 04/05/23 02/24/24 spironolactone 25 mg tablet 25 mg PO BID 04/05/23 02/24/24 tiotropium bromide 2.5 2 puff inhalation DAILY 04/05/23 02/24/24 mcg/actuation mist for inhalation (Spiriva Respimat) furosemide 20 mg tablet 20 mg PO DAILY 01/03/24 02/24/24 paroxetine HCl 10 mg tablet 10 mg PO DAILY 02/24/24 02/24/24 Previous Rx's ?Medication ?Instructions ?Recorded albuterol sulfate 90 mcg/actuation 2 inh inhalation Q4H PRN shortness 06/25/23 aerosol inhaler of breath or wheezing #8.5 grams albuterol sulfate 2.5 mg/3 mL 2.5 mg (3 mL) inhalation Q6H PRN 09/16/23 (0.083 %) solution for nebulization shortness of breath or wheezing #90 mL meclizine 25 mg tablet 25 mg PO TID PRN dizziness #15 tabs 02/24/24 benzonatate 100 mg capsule 100 mg PO TID PRN cough #20 caps 04/10/24 guaifenesin 600 mg tablet, 600 mg PO BID PRN congestion #14 05/28/24 extended release 12 hr (Mucinex) tabs prednisone 20 mg tablet 40 mg (2 x 20 mg) PO DAILY 5 days 05/28/24 #10 tabs doxycycline hyclate 100 mg tablet 100 mg PO BID 7 days #14 tabs 09/28/24 doxycycline hyclate 100 mg tablet 100 mg PO BID 7 days #14 tabs 09/28/24 Allergies Allergy/AdvReac Type Severity Reaction Status Date / Time ciprofloxacin (From Cipro) AdvReac Intermediate Vomiting Verified 09/28/24 11:33 metronidazole (From Flagyl) AdvReac Intermediate Vomiting Verified 09/28/24 11:33 Penicillins AdvReac Intermediate Vomiting Verified 09/28/24 11:33 sulfamethoxazole (From AdvReac Intermediate Vomiting Verified 09/28/24 11:33 Bactrim) trimethoprim (From Bactrim) AdvReac Intermediate Vomiting Verified 09/28/24 11:33 Opioid HPI Opioid Management Most Recent Opioid Data: Last Pain Scale 6 09/28/24, 11:56 Last MAR Pain Assessment Today, 18:43 Review of Systems ROS Status of ROS 10 or more systems reviewed and unremarkable except as noted in history and below [facility] Medical History (Updated 09/28/24 @ 11:58 by Anushka Carbajal MD) A-fib ?I48.91 - Unspecified atrial fibrillation (ICD-10) Hypertension ?I10 - Essential (primary) hypertension (ICD-10) Diabetes ?E11.9 - Type 2 diabetes mellitus without complications (ICD-10) Acute shoulder pain ?M25.519 - Pain in unspecified shoulder (ICD-10) Hyperlipidemia ?E78.5 - Hyperlipidemia, unspecified (ICD-10) Depression ?F32.A - Depression, unspecified (ICD-10) Chronic obstructive pulmonary disease ?J44.9 - Chronic obstructive pulmonary disease, unspecified (ICD-10) Surgical History (Updated 06/24/23 @ 12:13 by Aliyah Ruiz RN) History of appendectomy ?Z90.49 - Acquired absence of other specified parts of digestive tract (ICD-10) Hx of cholecystectomy ?Z90.49 - Acquired absence of other specified parts of digestive tract (ICD-10) H/O: hysterectomy ?Z90.710 - Acquired absence of both cervix and uterus (ICD-10) Family History (Updated 06/24/23 @ 12:13 by Aliyah Ruiz RN) Mother Family history of diabetes mellitus Grandfather Family history of diabetes mellitus Father Family history of stroke Social History Within the past year, how often did you have a drink containing alcohol: never Score interpretation: A score less than 3 is consistent with normal alcohol consumption. Smoking status: Current every day smoker Non-prescribed substance use: denies use Highest level of school completed/degree received: high school graduate Little interest or pleasure in doing things: not at all Feeling down, depressed, or hopeless: not at all Gender Identity: female Exam Narrative Exam Narrative: Nurses notes and vital signs reviewed and patient is not hypoxic. General: Well-appearing and in no apparent distress. Skin: Warm, dry, no pallor noted. No rash. Head: Normocephalic, atraumatic. Neck: Supple, non-tender. Cardiovascular: Regular Rate and Rhythm without murmur, gallop or rub. Respiratory: No accessory muscle use or respiratory distress. Lungs are clear to auscultation, no wheezing, rales or rhonchi Chest Wall: no tenderness Back: No midline thoracic or lumbar vertebral tenderness. No CVA tenderness Musculoskeletal: normal ROM, no calf or popliteal tenderness, no lower extremity edema/swelling GI: Abdomen is soft, non-distended. Normal bowel sounds. No masses appreciated. Examination of the left groin area showed that the patient have a induration of the skin that was not present few days ago in addition to redness extending to the medial aspect of the thigh mostly toward the perineum, the skin is indurated and tender, the area is almost 10 x 4 cm very tender and expanding horizontally, abscess also could be a possibility Neurological: A&O x4. No cranial nerve dysfunction observed. Constitutional Vital Signs, click to edit/add: Last Vital Signs Pulse 88 10/03/24 18:11 Resp 16 10/03/24 18:11 BP 159/94 H 10/03/24 18:11 Course Vital Signs Vital signs: Vital Signs Pulse Rate 88 10/03/24 18:11 Respiratory Rate 16 10/03/24 18:11 Blood Pressure 159/94 H 10/03/24 18:11 Pulse Rate 88 10/03/24 18:11 Respiratory Rate 16 10/03/24 18:11 Blood Pressure 159/94 H 10/03/24 18:11 Medical Decision Making MDM Narrative Medical decision making narrative: The patient CBC and chemistry and pending Discharge Plan Discharge Patient Disposition: Still a Patient
[2024-10-03] MEDS: KETOROLAC TROMETHAMINE 30 MG/ML VIAL 15 MG IVP (18:43)
[2024-10-03 18:50] LABS: Basophils Absolute Auto 0.1 10^3/uL (0.0-0.1); Basophils Percent Auto 0.5 % (0.2-2.0); Eosinophils Absolute Auto 0.1 10^3/uL (0.0-0.7); Eosinophils Percent Auto 0.5 % (0.9-7.0); Hematocrit 51.9 % (36.0-48.0); Hemoglobin 17.8 g/dL (12.0-16.0); Immature Granulocytes Abs Auto 0.05 10^3/uL (0.00-0.03); Immature Granulocytes Pct Auto 0.3 % (0.0-0.5); Mean Corpuscular HGB Conc 34.3 g/dL (29.9-35.2); Mean Corpuscular Hemoglobin 31.7 pg (26.7-34.0); Mean Corpuscular Volume 92.3 fL (81.0-99.0); Monocytes Absolute Auto 1.2 10^3/uL (0.3-0.8); Monocytes Percent Auto 7.9 % (1.7-12.0); Neutrophils Absolute Auto 10.7 10^3/uL (1.4-6.5); Neutrophils Percent Auto 70.8 % (43.0-75.0); Platelet Count 310 10^3/uL (150-450); Red Blood Count 5.62 10^6/uL (4.20-5.40); Red Cell Distribution Width 12.3 % (11.0-15.0); White Blood Count 15.1 10^3/uL (4.0-11.0)
[2024-10-03 19:20] LABS: Alanine Aminotransferase 11 U/L (14-59); Albumin Globulin Ratio 0.7; Alkaline Phosphatase 117 U/L (46-116); Anion Gap 13.8; Aspartate Amino Transferase 7 U/L (15-37); BUN Creatinine Ratio 7.1; Bilirubin Total 0.5 mg/dL (0.2-1.0); Calcium 9.3 mg/dL (8.5-10.1); Carbon Dioxide 28.9 mmol/L (21.0-32.0); Chloride 93 mmol/L (98-107); Estimated GFR (African America 59 (>=60 mL/min/1.73m^2); Estimated GFR (Non-African Ame 49 (>=60 mL/min/1.73m^2); Globulin 4.2 g/dL; Lactate/Lactic Acid 1.9 mmol/L (0.4-2.0); Potassium 3.7 mmol/L (3.5-5.1); Sodium 132 mmol/L (136-145); Total Protein 7.2 g/dL (6.4-8.2)
[2024-10-03 19:21] LABS: Glucose 506 mg/dL (74-106)
[2024-10-03] MEDS: INSULIN REGULAR, HUMAN (100 UNIT/ML) 10 ML MDV 8 UNIT SUBQ (20:13)
[2024-10-03] MEDS: CEFTRIAXONE 2,000 MG in 0.9 % SODIUM CHLORIDE 100 ML 200 MG IV (22:41)
[2024-10-03 22:48] LABS: Glucometer 257 mg/dL (74-106)
[2024-10-03] MEDS: VANCOMYCIN HCL 1,250 MG in 0.9 % SODIUM CHLORIDE 500 ML 250 MG IV (23:14)
[2024-10-04] VITALS (9 sets, daily range): BP systolic 117–147; BP diastolic 61–82; PULSE 63–109; TEMP 36.6–37.2; O2SAT 87–98; BMI 29.2
--- NOTE | 2024-10-04 01:14 | ED.SKABFB1 ---
HPI - Skin/Abscess/Foreign Bdy General Chief complaint: Skin/Abscess/Foreign Body Stated complaint: PAIN IN GROIN AREA Time Seen by Provider: 10/03/24 18:08 Source: patient Mode of arrival: walk-in Limitations: no limitations History of Present Illness HPI narrative: The patient is a 64-year-old female who was signed out to me at 7 PM by my colleague. Patient was brought into the emergency department for pain and redness in the left inguinal area. Patient states that it is difficult or impossible for her to ambulate. The patient was seen in the emergency department on September 28 by my colleague. At that time she had previously been having pain for a week and a half prior. My colleague evaluated the patient felt that the patient had a 2 cm diameter area of some induration. Thought that it could be cellulitis and provided the patient with doxycycline 100 mg twice a day. Patient came in today with worsening pain. Patient still does not have any fever or chills. Related Data Home Medications ?Medication ?Instructions ?Recorded ?Confirmed aspirin 81 mg tablet,delayed 81 mg PO DAILY 04/05/23 10/03/24 release budesonide-formoterol HFA 160 2 puff inhalation BID 04/05/23 10/03/24 mcg-4.5 mcg/actuation aerosol inhaler (Symbicort) calcium 500 mg (as 1 tab PO BID 04/05/23 10/03/24 carbonate)-vitamin D3 10 mcg (400 unit) tablet carvedilol 12.5 mg tablet 12.5 mg PO BID 04/05/23 10/03/24 empagliflozin 25 mg tablet 25 mg PO DAILY 04/05/23 10/03/24 (Jardiance) gabapentin 600 mg tablet 600 mg PO TID 04/05/23 10/03/24 insulin aspart U-100 100 unit/mL 1 sliding scale dose subcut 04/05/23 10/03/24 (3 mL) subcutaneous pen (Novolog TIDWMEAL FlexPen U-100 Insulin aspart) insulin glargine 100 unit/mL (3 60 unit subcut QPM 04/05/23 10/03/24 mL) subcutaneous pen (Lantus Solostar U-100 Insulin) losartan 100 mg tablet 100 mg PO DAILY 04/05/23 10/03/24 pantoprazole 40 mg tablet,delayed 40 mg PO DAILY 04/05/23 10/03/24 release potassium chloride 10 mEq 10 meq PO DAILY 04/05/23 10/03/24 capsule,extended release rivaroxaban 20 mg tablet (Xarelto) 20 mg PO DAILY 04/05/23 10/03/24 rosuvastatin 5 mg tablet 5 mg PO DAILY 04/05/23 10/03/24 spironolactone 25 mg tablet 25 mg PO BID 04/05/23 10/03/24 tiotropium bromide 2.5 2 puff inhalation DAILY 04/05/23 10/03/24 mcg/actuation mist for inhalation (Spiriva Respimat) furosemide 20 mg tablet 20 mg PO DAILY 01/03/24 10/03/24 cholecalciferol (vitamin D3) 50 2,000 unit PO DAILY 10/03/24 10/03/24 mcg (2,000 unit) tablet paroxetine HCl 30 mg tablet 30 mg PO DAILY 10/03/24 10/03/24 Previous Rx's ?Medication ?Instructions ?Recorded albuterol sulfate 90 mcg/actuation 2 inh inhalation Q4H PRN shortness 06/25/23 aerosol inhaler of breath or wheezing #8.5 grams albuterol sulfate 2.5 mg/3 mL 2.5 mg (3 mL) inhalation Q6H PRN 09/16/23 (0.083 %) solution for nebulization shortness of breath or wheezing #90 mL doxycycline hyclate 100 mg tablet 100 mg PO BID 7 days #14 tabs 09/28/24 Allergies Allergy/AdvReac Type Severity Reaction Status Date / Time ciprofloxacin (From Cipro) AdvReac Intermediate Vomiting Verified 09/28/24 11:33 metronidazole (From Flagyl) AdvReac Intermediate Vomiting Verified 09/28/24 11:33 Penicillins AdvReac Intermediate Vomiting Verified 09/28/24 11:33 sulfamethoxazole (From AdvReac Intermediate Vomiting Verified 09/28/24 11:33 Bactrim) trimethoprim (From Bactrim) AdvReac Intermediate Vomiting Verified 09/28/24 11:33 Review of Systems ROS Narrative 10 Systems were reviewed, and unless noted in the HPI, all other systems are reviewed, unremarkable, or noncontributory. [facility] Medical History (Updated 10/04/24 @ 01:23 by Meliza Nura-Ockerman, DO) A-fib ?I48.91 - Unspecified atrial fibrillation (ICD-10) Hypertension ?I10 - Essential (primary) hypertension (ICD-10) Diabetes ?E11.9 - Type 2 diabetes mellitus without complications (ICD-10) Acute shoulder pain ?M25.519 - Pain in unspecified shoulder (ICD-10) Hyperlipidemia ?E78.5 - Hyperlipidemia, unspecified (ICD-10) Depression ?F32.A - Depression, unspecified (ICD-10) Chronic obstructive pulmonary disease ?J44.9 - Chronic obstructive pulmonary disease, unspecified (ICD-10) Surgical History (Updated 06/24/23 @ 12:13 by Aliyah Ruiz RN) History of appendectomy ?Z90.49 - Acquired absence of other specified parts of digestive tract (ICD-10) Hx of cholecystectomy ?Z90.49 - Acquired absence of other specified parts of digestive tract (ICD-10) H/O: hysterectomy ?Z90.710 - Acquired absence of both cervix and uterus (ICD-10) Family History (Updated 06/24/23 @ 12:13 by Aliyah Ruiz RN) Mother Family history of diabetes mellitus Grandfather Family history of diabetes mellitus Father Family history of stroke Social History Within the past year, how often did you have a drink containing alcohol: never Score interpretation: A score less than 3 is consistent with normal alcohol consumption. Smoking status: Current every day smoker Non-prescribed substance use: denies use Highest level of school completed/degree received: high school graduate Little interest or pleasure in doing things: not at all Feeling down, depressed, or hopeless: not at all Gender Identity: female Exam Narrative Exam Narrative: Patient had a focal exam performed by me. Patient has pain and induration to the left inguinal area. It is red. Its painful to the touch. It extends into the patient's mons pubis area. Please note that the patient has no evidence of Ken's gangrene. There is no Nikolsky sign. There is no black eschar to area. Constitutional Vital Signs, click to edit/add: Last Vital Signs Pulse 88 10/03/24 18:11 Resp 16 10/03/24 18:11 BP 159/94 H 10/03/24 18:11 Course Course Hospital Course: Patient was signed out to me at 7 PM. I did provide the patient with intravenous antibiotic therapy. She has failed outpatient antibiotic therapy. She is going to be given Rocephin 2 g IV piggyback and vancomycin 1500 mg IV piggyback. A CT scan was done to further delineate my suspicions of an abscess. Once the abscess was identified I had to wait and make sure the department was stable so that I could do a good job with this abscess procure ration. The patient's abscess was incised with the use of an ultrasound. Please see procedure note. Patient tolerated the antibiotics well. Patient tolerated the procedure well. At this time we are aiming to admit the patient. She has failed outpatient antibiotic therapy. And although her white count is elevated and she has a source of infection, there is no evidence of sepsis. She has normal respiratory rate and pulse rate. Consultations Consultation #1: Discussing this case with the hospitalist to admit the patient. Vital Signs Vital signs: Vital Signs Pulse Rate 88 10/03/24 18:11 Respiratory Rate 16 10/03/24 18:11 Blood Pressure 159/94 H 10/03/24 18:11 Pulse Rate 88 10/03/24 18:11 Respiratory Rate 16 10/03/24 18:11 Blood Pressure 159/94 H 10/03/24 18:11 MDM - Skin/Abscess/Foreign Bdy Medical Records Attestation: I reviewed the patient's medical records. Lab Data Attestation: I reviewed the patient's lab results. Lab results narrative: Patient has leukocyte this with a white blood cell count of 15.1 thousand. Hemoglobin is also at 17.8 patient may be due cons and treated. Patient does have evidence of pseudohyponatremia at 132 that corrects. Glucose is 506. Equal to point her glucose is 257 after receiving insulin regular 8 units subcutaneously. Labs: Lab Results 10/03/24 10/03/24 Range/Units 18:39 22:46 WBC 15.1 H (4.0-11.0) 10^3/uL RBC 5.62 H (4.20-5.40) 10^6/uL Hgb 17.8 H (12.0-16.0) g/dL Hct 51.9 H (36.0-48.0) % MCV 92.3 (81.0-99.0) fL MCH 31.7 (26.7-34.0) pg MCHC 34.3 (29.9-35.2) g/dL RDW 12.3 (11.0-15.0) % Plt Count 310 (150-450) 10^3/uL MPV 11.0 (9.5-13.5) fL Neut % (Auto) 70.8 (43.0-75.0) % Lymph % (Auto) 20.0 L (20.5-60.0) % [place] % (Auto) 7.9 (1.7-12.0) % Eos % (Auto) 0.5 L (0.9-7.0) % Baso % (Auto) 0.5 (0.2-2.0) % Neut # (Auto) 10.7 H (1.4-6.5) 10^3/uL Lymph # (Auto) 3.0 (1.2-3.8) 10^3/uL [place] # (Auto) 1.2 H (0.3-0.8) 10^3/uL Eos # (Auto) 0.1 (0.0-0.7) 10^3/uL Baso # (Auto) 0.1 (0.0-0.1) 10^3/uL Abs Immat Gran (auto) 0.05 H (0.00-0.03) 10^3/uL Imm/Tot Granulo (auto) 0.3 (0.0-0.5) % Sodium 132 L (136-145) mmol/L Potassium 3.7 (3.5-5.1) mmol/L Chloride 93 L (98-107) mmol/L Carbon Dioxide 28.9 (21.0-32.0) mmol/L Anion Gap 13.8 BUN 8.0 (7.0-18.0) mg/dL Creatinine 1.12 H (0.55-1.02) mg/dL Est GFR ( Amer) 59 L (>=60 mL/min/1.73m^2) Est GFR (Non-Af Amer) 49 L (>=60 mL/min/1.73m^2) BUN/Creatinine Ratio 7.1 Glucose 506 H* (74-106) mg/dL Lactate 1.9 (0.4-2.0) mmol/L Calcium 9.3 (8.5-10.1) mg/dL Total Bilirubin 0.5 (0.2-1.0) mg/dL AST 7 L (15-37) U/L ALT 11 L (14-59) U/L Alkaline Phosphatase 117 H (46-116) U/L Total Protein 7.2 (6.4-8.2) g/dL Albumin 3.0 L (3.4-5.0) g/dL Globulin 4.2 g/dL Albumin/Globulin Ratio 0.7 POC Glucose 257 H (74-106) mg/dL Imaging Data CT scan of the pelvis: Radiologist's impression: There is infiltration of the fat within the left inguinal region with focal fluid collection likely representing an abscess with adjacent cellulitis. Deep to the skin surface there is a low-attenuation collection measuring 4 x 1 x 2 cm that coursed along the inguinal crease. Discharge Plan Discharge Chief Complaint: Skin/Abscess/Foreign Body Clinical Impression: Abscess of left groin, Acute hyperglycemia Patient Disposition: Admitted As Inpatient Time of Disposition Decision: 01:22 Condition: Fair Procedures ED ID Incision & Drainage I&D Type: abcess Site: lower extremity (Left inguinal crease) Side (if applicable): left Sedation/analgesia: none Anesthetic used: lidocaine 1% (With epinephrine) Technique: other (Incised with #15 blade) Amount of fluid (mL): 8 Irrigation: Yes Packing used: iodoform (30 cm) Complications: other (None)
[2024-10-04] MEDS: LIDOCAINE HCL 1%-EPINEPHRINE 1:100,000 20 ML MDV 10 ML INJ (01:21)
--- NOTE | 2024-10-04 01:23 | ED.SKABFB1 ---
HPI - Skin/Abscess/Foreign Bdy General Chief complaint: Skin/Abscess/Foreign Body Stated complaint: PAIN IN GROIN AREA Time Seen by Provider: 10/03/24 18:08 Source: patient Mode of arrival: walk-in Limitations: no limitations Related Data Home Medications ?Medication ?Instructions ?Recorded ?Confirmed aspirin 81 mg tablet,delayed 81 mg PO DAILY 04/05/23 10/03/24 release budesonide-formoterol HFA 160 2 puff inhalation BID 04/05/23 10/03/24 mcg-4.5 mcg/actuation aerosol inhaler (Symbicort) calcium 500 mg (as 1 tab PO BID 04/05/23 10/03/24 carbonate)-vitamin D3 10 mcg (400 unit) tablet carvedilol 12.5 mg tablet 12.5 mg PO BID 04/05/23 10/03/24 empagliflozin 25 mg tablet 25 mg PO DAILY 04/05/23 10/03/24 (Jardiance) gabapentin 600 mg tablet 600 mg PO TID 04/05/23 10/03/24 insulin aspart U-100 100 unit/mL 1 sliding scale dose subcut 04/05/23 10/03/24 (3 mL) subcutaneous pen (Novolog TIDWMEAL FlexPen U-100 Insulin aspart) insulin glargine 100 unit/mL (3 60 unit subcut QPM 04/05/23 10/03/24 mL) subcutaneous pen (Lantus Solostar U-100 Insulin) losartan 100 mg tablet 100 mg PO DAILY 04/05/23 10/03/24 pantoprazole 40 mg tablet,delayed 40 mg PO DAILY 04/05/23 10/03/24 release potassium chloride 10 mEq 10 meq PO DAILY 04/05/23 10/03/24 capsule,extended release rivaroxaban 20 mg tablet (Xarelto) 20 mg PO DAILY 04/05/23 10/03/24 rosuvastatin 5 mg tablet 5 mg PO DAILY 04/05/23 10/03/24 spironolactone 25 mg tablet 25 mg PO BID 04/05/23 10/03/24 tiotropium bromide 2.5 2 puff inhalation DAILY 04/05/23 10/03/24 mcg/actuation mist for inhalation (Spiriva Respimat) furosemide 20 mg tablet 20 mg PO DAILY 01/03/24 10/03/24 cholecalciferol (vitamin D3) 50 2,000 unit PO DAILY 10/03/24 10/03/24 mcg (2,000 unit) tablet paroxetine HCl 30 mg tablet 30 mg PO DAILY 10/03/24 10/03/24 Previous Rx's ?Medication ?Instructions ?Recorded albuterol sulfate 90 mcg/actuation 2 inh inhalation Q4H PRN shortness 06/25/23 aerosol inhaler of breath or wheezing #8.5 grams albuterol sulfate 2.5 mg/3 mL 2.5 mg (3 mL) inhalation Q6H PRN 09/16/23 (0.083 %) solution for nebulization shortness of breath or wheezing #90 mL doxycycline hyclate 100 mg tablet 100 mg PO BID 7 days #14 tabs 09/28/24 Allergies Allergy/AdvReac Type Severity Reaction Status Date / Time ciprofloxacin (From Cipro) AdvReac Intermediate Vomiting Verified 09/28/24 11:33 metronidazole (From Flagyl) AdvReac Intermediate Vomiting Verified 09/28/24 11:33 Penicillins AdvReac Intermediate Vomiting Verified 09/28/24 11:33 sulfamethoxazole (From AdvReac Intermediate Vomiting Verified 09/28/24 11:33 Bactrim) trimethoprim (From Bactrim) AdvReac Intermediate Vomiting Verified 09/28/24 11:33 [facility] Medical History (Updated 10/04/24 @ 10:44 by Brandon Monterroso MD) COVID ?U07.1 - COVID-19 (ICD-10) Acute and chronic respiratory failure ([id number]) ?J96.20 - Acute and chronic respiratory failure, unspecified whether with hypoxia or hypercapnia (ICD-10) Acute exacerbation of chronic obstructive pulmonary disease ?J44.1 - Chronic obstructive pulmonary disease with (acute) exacerbation (ICD-10) Dehydration ?E86.0 - Dehydration (ICD-10) Acute infective exacerbation of chronic obstructive airway disease ?J44.1 - Chronic obstructive pulmonary disease with (acute) exacerbation (ICD-10) Syncope ?R55 - Syncope and collapse (ICD-10) Head injury ?S09.90XA - Unspecified injury of head, initial encounter (ICD-10) Fall ?W19.XXXA - Unspecified fall, initial encounter (ICD-10) Closed head injury ?S09.90XA - Unspecified injury of head, initial encounter (ICD-10) Vertigo ?R42 - Dizziness and giddiness (ICD-10) Finger pain, right ?M79.644 - Pain in right finger(s) (ICD-10) Community acquired pneumonia ?J18.9 - Pneumonia, unspecified organism (ICD-10) COPD exacerbation ?J44.1 - Chronic obstructive pulmonary disease with (acute) exacerbation (ICD-10) COVID-19 ?U07.1 - COVID-19 (ICD-10) Hyperglycemia, drug-induced ?R73.9 - Hyperglycemia, unspecified (ICD-10) ?T50.905A - Adverse effect of unspecified drugs, medicaments and biological substances, initial encounter (ICD-10) Abscess ?L02.91 - Cutaneous abscess, unspecified (ICD-10) Acute hyperglycemia ?R73.9 - Hyperglycemia, unspecified (ICD-10) A-fib ?I48.91 - Unspecified atrial fibrillation (ICD-10) Diabetes ?E11.9 - Type 2 diabetes mellitus without complications (ICD-10) Acute shoulder pain ?M25.519 - Pain in unspecified shoulder (ICD-10) Hyperlipidemia ?E78.5 - Hyperlipidemia, unspecified (ICD-10) Depression ?F32.A - Depression, unspecified (ICD-10) Surgical History (Updated 06/24/23 @ 12:13 by Aliyah Ruiz RN) History of appendectomy ?Z90.49 - Acquired absence of other specified parts of digestive tract (ICD-10) Hx of cholecystectomy ?Z90.49 - Acquired absence of other specified parts of digestive tract (ICD-10) H/O: hysterectomy ?Z90.710 - Acquired absence of both cervix and uterus (ICD-10) Family History (Updated 06/24/23 @ 12:13 by Aliyah Ruiz RN) Mother Family history of diabetes mellitus Grandfather Family history of diabetes mellitus Father Family history of stroke Social History (Updated 10/04/24 @ 02:53 by Cherelle Tripathi RN) Within the past year, how often did you have a drink containing alcohol: never Score interpretation: A score less than 3 is consistent with normal alcohol consumption. Smoking status: Current every day smoker Non-prescribed substance use: denies use Previous occupational history: Unemployed Highest level of school completed/degree received: high school graduate Little interest or pleasure in doing things: not at all Feeling down, depressed, or hopeless: not at all Gender Identity: female Exam Constitutional Vital Signs, click to edit/add: Last Vital Signs Temp 98 F 10/04/24 16:00 Pulse 67 10/04/24 16:00 Resp 18 10/04/24 16:00 BP 138/77 10/04/24 16:00 Pulse Ox 92 L 10/04/24 16:00 O2 Del Method Nasal Cannula 10/04/24 16:52 O2 Flow Rate 2 10/04/24 16:52 Course Course Hospital Course: Patient was signed out to me at 7 PM. I did provide the patient with intravenous antibiotic therapy. She has failed outpatient antibiotic therapy. She is going to be given Rocephin 2 g IV piggyback and vancomycin 1500 mg IV piggyback. A CT scan was done to further delineate my suspicions of an abscess. Once the abscess was identified I had to wait and make sure the department was stable so that I could do a good job with this abscess procure ration. The patient's abscess was incised with the use of an ultrasound. Please see procedure note. Patient tolerated the antibiotics well. Patient tolerated the procedure well. At this time we are aiming to admit the patient. She has failed outpatient antibiotic therapy. And although her white count is elevated and she has a source of infection, there is no evidence of sepsis. She has normal respiratory rate and pulse rate. Vital Signs Vital signs: Vital Signs Pulse Rate 88 10/03/24 18:11 Respiratory Rate 16 10/03/24 18:11 Blood Pressure 159/94 H 10/03/24 18:11 Temperature 98 F 10/04/24 16:00 Pulse Rate 67 10/04/24 16:00 Respiratory Rate 18 10/04/24 16:00 Blood Pressure 138/77 10/04/24 16:00 Pulse Oximetry 92 L 10/04/24 16:00 Oxygen Delivery Method Nasal Cannula 10/04/24 16:52 Oxygen Delivery Flow Rate 2 10/04/24 16:52 MDM - Skin/Abscess/Foreign Bdy Lab Data Labs: Lab Results 10/03/24 10/03/24 Range/Units 18:39 22:46 WBC 15.1 H (4.0-11.0) 10^3/uL RBC 5.62 H (4.20-5.40) 10^6/uL Hgb 17.8 H (12.0-16.0) g/dL Hct 51.9 H (36.0-48.0) % MCV 92.3 (81.0-99.0) fL MCH 31.7 (26.7-34.0) pg MCHC 34.3 (29.9-35.2) g/dL RDW 12.3 (11.0-15.0) % Plt Count 310 (150-450) 10^3/uL MPV 11.0 (9.5-13.5) fL Neut % (Auto) 70.8 (43.0-75.0) % Lymph % (Auto) 20.0 L (20.5-60.0) % [place] % (Auto) 7.9 (1.7-12.0) % Eos % (Auto) 0.5 L (0.9-7.0) % Baso % (Auto) 0.5 (0.2-2.0) % Neut # (Auto) 10.7 H (1.4-6.5) 10^3/uL Lymph # (Auto) 3.0 (1.2-3.8) 10^3/uL [place] # (Auto) 1.2 H (0.3-0.8) 10^3/uL Eos # (Auto) 0.1 (0.0-0.7) 10^3/uL Baso # (Auto) 0.1 (0.0-0.1) 10^3/uL Abs Immat Gran (auto) 0.05 H (0.00-0.03) 10^3/uL Imm/Tot Granulo (auto) 0.3 (0.0-0.5) % Sodium 132 L (136-145) mmol/L Potassium 3.7 (3.5-5.1) mmol/L Chloride 93 L (98-107) mmol/L Carbon Dioxide 28.9 (21.0-32.0) mmol/L Anion Gap 13.8 BUN 8.0 (7.0-18.0) mg/dL Creatinine 1.12 H (0.55-1.02) mg/dL Est GFR ( Amer) 59 L (>=60 mL/min/1.73m^2) Est GFR (Non-Af Amer) 49 L (>=60 mL/min/1.73m^2) BUN/Creatinine Ratio 7.1 Glucose 506 H* (74-106) mg/dL Lactate 1.9 (0.4-2.0) mmol/L Calcium 9.3 (8.5-10.1) mg/dL Total Bilirubin 0.5 (0.2-1.0) mg/dL AST 7 L (15-37) U/L ALT 11 L (14-59) U/L Alkaline Phosphatase 117 H (46-116) U/L Total Protein 7.2 (6.4-8.2) g/dL Albumin 3.0 L (3.4-5.0) g/dL Globulin 4.2 g/dL Albumin/Globulin Ratio 0.7 POC Glucose 257 H (74-106) mg/dL Discharge Plan Discharge Chief Complaint: Skin/Abscess/Foreign Body Clinical Impression: Abscess of left groin, Acute hyperglycemia Patient Disposition: Admitted As Inpatient Time of Disposition Decision: 01:22 Condition: Fair Discharge Date/Time: 10/04/24 02:45
--- NOTE | 2024-10-04 03:17 | PC.NURSE ---
pt states she has dentures at home but she does not wear them and does not even know where they are at. pt also states she wears 2L nasal cannula at home at night. upon arrival to the floor pt was 87% room air. RN placed patient on 2 L nasal cannula and oxygenation increased to 94%
[2024-10-04] MEDS: GABAPENTIN 300 MG CAPSULE 600 MG PO ×3 (05:52→21:12)
[2024-10-04 06:05] LABS: Basophils Absolute Auto 0.1 10^3/uL (0.0-0.1); Basophils Percent Auto 0.3 % (0.2-2.0); Eosinophils Absolute Auto 0.1 10^3/uL (0.0-0.7); Eosinophils Percent Auto 0.9 % (0.9-7.0); Hematocrit 50.4 % (36.0-48.0); Immature Granulocytes Abs Auto 0.05 10^3/uL (0.00-0.03); Immature Granulocytes Pct Auto 0.3 % (0.0-0.5); Lymphocytes Absolute Auto 2.3 10^3/uL (1.2-3.8); Lymphocytes Percent Auto 15.2 % (20.5-60.0); Mean Corpuscular HGB Conc 33.7 g/dL (29.9-35.2); Mean Corpuscular Hemoglobin 30.9 pg (26.7-34.0); Mean Corpuscular Volume 91.6 fL (81.0-99.0); Mean Platelet Volume 10.6 fL (9.5-13.5); Monocytes Absolute Auto 1.4 10^3/uL (0.3-0.8); Monocytes Percent Auto 9.1 % (1.7-12.0); Neutrophils Absolute Auto 11.3 10^3/uL (1.4-6.5); Neutrophils Percent Auto 74.2 % (43.0-75.0); Platelet Count 275 10^3/uL (150-450); Red Cell Distribution Width 12.4 % (11.0-15.0); White Blood Count 15.2 10^3/uL (4.0-11.0)
[2024-10-04 06:21] LABS: Alanine Aminotransferase <6 U/L (14-59); Albumin Globulin Ratio 0.7; Albumin Level 2.6 g/dL (3.4-5.0); Alkaline Phosphatase 96 U/L (46-116); Anion Gap 14.1; Aspartate Amino Transferase 7 U/L (15-37); BUN Creatinine Ratio 10.3; Bilirubin Total 0.5 mg/dL (0.2-1.0); Carbon Dioxide 28.4 mmol/L (21.0-32.0); Chloride 99 mmol/L (98-107); Estimated GFR (African America >60 (>=60 mL/min/1.73m^2); Estimated GFR (Non-African Ame >60 (>=60 mL/min/1.73m^2); Globulin 3.7 g/dL; Glucose 204 mg/dL (74-106); Potassium 3.5 mmol/L (3.5-5.1); Sodium 138 mmol/L (136-145); Total Protein 6.3 g/dL (6.4-8.2)
[2024-10-04] MEDS: POTASSIUM CHLORIDE 10 MEQ ER TABLET PO (09:30)
[2024-10-04] MEDS: CALCIUM CARBONATE 600 MG/VITAMIN D3 400 IU TABLET 1 TAB PO ×2 (09:30→21:12)
[2024-10-04] MEDS: CHOLECALCIFEROL (VITAMIN D3) 25 MCG/1,000 UNITS TABLET 50 MCG PO (09:30)
[2024-10-04] MEDS: PAROXETINE HCL 20 MG TABLET 30 MG PO (09:30)
[2024-10-04] MEDS: ASPIRIN 81 MG TABLET.DR PO (09:30)
[2024-10-04] MEDS: CANAGLIFLOZIN 100 MG TABLET 300 MG PO (09:30)
[2024-10-04] MEDS: FUROSEMIDE 20 MG TABLET PO (09:30)
[2024-10-04] MEDS: LOSARTAN POTASSIUM 50 MG TABLET 100 MG PO (09:30)
[2024-10-04] MEDS: ATORVASTATIN CALCIUM 20 MG TABLET PO (09:30)
[2024-10-04] MEDS: PANTOPRAZOLE SODIUM 40 MG TABLET.DR PO (09:31)
[2024-10-04] MEDS: CARVEDILOL 12.5 MG TABLET PO ×2 (09:31→21:12)
[2024-10-04] MEDS: SPIRONOLACTONE 25 MG TABLET PO ×2 (09:31→21:12)
[2024-10-04] MEDS: IPRATROPIUM/ALBUTEROL SULFATE 3 ML AMPUL.NEB IH ×3 (11:35→20:09)
[2024-10-04] MEDS: BUDESONIDE 0.5 MG/2 ML AMPULE NEB IH ×2 (11:35→20:09)
[2024-10-04 11:36] LABS: Glucometer 195 mg/dL (74-106)
[2024-10-04] MEDS: INSULIN ASPART 300 UNIT/3 ML PEN SUBQ ×3 (11:36→21:13)
[2024-10-04] MEDS: VANCOMYCIN HCL 1,250 MG in 0.9 % SODIUM CHLORIDE 250 ML 166.667 MG IV (11:36)
[2024-10-04] MEDS: 0.9 % SODIUM CHLORIDE 250 ML 10 ML IV (11:40)
[2024-10-04] MEDS: PIPERACILLIN SODIUM/TAZOBACTAM 3.375 GM in 0.9 % SODIUM CHLORIDE 50 ML IV ×2 (13:56→21:12)
--- NOTE | 2024-10-04 14:30 | PM.HP ---
HPI H&P: HPI History of Present Illness Chief complaint: ABSCESS OF LEFT GROIN; HYPERGLYCEMIA Narrative: 64 y/o female to ER with redness, pain and swelling in left groin. To ER 09/28 and c/o pain and redness for about 1 week. Then it was 2 cm x 1 cm and not fluctuant. Started oral doxycycline 09/28. Redness and swelling worsened. Increased pain and very difficult to walk. Severe redness and hot to touch. Afebrile and no nausea. BS elevated over past few days. To ER and fluctuant area noted concerning for abscess. Labs showed elevated WBC 15.1 and glucose 506. No fever. CT showed abscess. ER peformed I&D and wound culture obtained. Admitted for treatment. Started rocephin and vancomycin. Continued pain and drainage today. Opioid HPI Opioid Management Most Recent Pain and Opioid Data: Last Pain Scale 6 Today, 03:06 Last Pain Assessment Today, 03:06 Last MAR Pain Assessment 10/03/24, 18:43 Last ORT Total Score 0 Today, 03:02 Last ORT Risk Category Low Risk Today, 03:02 Review of Systems ROS Constitutional Denies: fever, chills or fatigue Cardiovascular Denies: chest pain, palpitations or edema Respiratory Denies: shortness of breath, cough or wheezing Gastrointestinal Denies: abdominal pain, nausea, vomiting or diarrhea Genitourinary Denies: painful urination [facility] Medical History (Updated 10/04/24 @ 10:44 by Brandon Monterroso MD) COVID ?U07.1 - COVID-19 (ICD-10) Acute and chronic respiratory failure ([id number]) ?J96.20 - Acute and chronic respiratory failure, unspecified whether with hypoxia or hypercapnia (ICD-10) Acute exacerbation of chronic obstructive pulmonary disease ?J44.1 - Chronic obstructive pulmonary disease with (acute) exacerbation (ICD-10) Dehydration ?E86.0 - Dehydration (ICD-10) Acute infective exacerbation of chronic obstructive airway disease ?J44.1 - Chronic obstructive pulmonary disease with (acute) exacerbation (ICD-10) Syncope ?R55 - Syncope and collapse (ICD-10) Head injury ?S09.90XA - Unspecified injury of head, initial encounter (ICD-10) Fall ?W19.XXXA - Unspecified fall, initial encounter (ICD-10) Closed head injury ?S09.90XA - Unspecified injury of head, initial encounter (ICD-10) Vertigo ?R42 - Dizziness and giddiness (ICD-10) Finger pain, right ?M79.644 - Pain in right finger(s) (ICD-10) Community acquired pneumonia ?J18.9 - Pneumonia, unspecified organism (ICD-10) COPD exacerbation ?J44.1 - Chronic obstructive pulmonary disease with (acute) exacerbation (ICD-10) COVID-19 ?U07.1 - COVID-19 (ICD-10) Hyperglycemia, drug-induced ?R73.9 - Hyperglycemia, unspecified (ICD-10) ?T50.905A - Adverse effect of unspecified drugs, medicaments and biological substances, initial encounter (ICD-10) Abscess ?L02.91 - Cutaneous abscess, unspecified (ICD-10) Acute hyperglycemia ?R73.9 - Hyperglycemia, unspecified (ICD-10) A-fib ?I48.91 - Unspecified atrial fibrillation (ICD-10) Diabetes ?E11.9 - Type 2 diabetes mellitus without complications (ICD-10) Acute shoulder pain ?M25.519 - Pain in unspecified shoulder (ICD-10) Hyperlipidemia ?E78.5 - Hyperlipidemia, unspecified (ICD-10) Depression ?F32.A - Depression, unspecified (ICD-10) Surgical History (Updated 06/24/23 @ 12:13 by Aliyah Ruiz RN) History of appendectomy ?Z90.49 - Acquired absence of other specified parts of digestive tract (ICD-10) Hx of cholecystectomy ?Z90.49 - Acquired absence of other specified parts of digestive tract (ICD-10) H/O: hysterectomy ?Z90.710 - Acquired absence of both cervix and uterus (ICD-10) Family History (Updated 06/24/23 @ 12:13 by Aliyah Ruiz RN) Mother Family history of diabetes mellitus Grandfather Family history of diabetes mellitus Father Family history of stroke Social History (Updated 10/04/24 @ 02:53 by Cherelle Tripathi RN) Within the past year, how often did you have a drink containing alcohol: never Score interpretation: A score less than 3 is consistent with normal alcohol consumption. Smoking status: Current every day smoker Non-prescribed substance use: denies use Previous occupational history: Unemployed Highest level of school completed/degree received: high school graduate Little interest or pleasure in doing things: not at all Feeling down, depressed, or hopeless: not at all Gender Identity: female Meds Home Medications and Allergies Home Medications ?Medication ?Instructions ?Recorded ?Confirmed ?Type aspirin 81 mg tablet,delayed 81 mg PO DAILY 04/05/23 10/03/24 History release budesonide-formoterol HFA 160 2 puff inhalation BID 04/05/23 10/03/24 History mcg-4.5 mcg/actuation aerosol inhaler (Symbicort) calcium 500 mg (as 1 tab PO BID 04/05/23 10/03/24 History carbonate)-vitamin D3 10 mcg (400 unit) tablet carvedilol 12.5 mg tablet 12.5 mg PO BID 04/05/23 10/03/24 History empagliflozin 25 mg tablet 25 mg PO DAILY 04/05/23 10/03/24 History (Jardiance) gabapentin 600 mg tablet 600 mg PO TID 04/05/23 10/03/24 History insulin aspart U-100 100 unit/mL 1 sliding scale dose subcut 04/05/23 10/03/24 History (3 mL) subcutaneous pen (Novolog TIDWMEAL FlexPen U-100 Insulin aspart) insulin glargine 100 unit/mL (3 60 unit subcut QPM 04/05/23 10/03/24 History mL) subcutaneous pen (Lantus Solostar U-100 Insulin) losartan 100 mg tablet 100 mg PO DAILY 04/05/23 10/03/24 History pantoprazole 40 mg tablet,delayed 40 mg PO DAILY 04/05/23 10/03/24 History release potassium chloride 10 mEq 10 meq PO DAILY 04/05/23 10/03/24 History capsule,extended release rivaroxaban 20 mg tablet (Xarelto) 20 mg PO DAILY 04/05/23 10/03/24 History rosuvastatin 5 mg tablet 5 mg PO DAILY 04/05/23 10/03/24 History spironolactone 25 mg tablet 25 mg PO BID 04/05/23 10/03/24 History tiotropium bromide 2.5 2 puff inhalation DAILY 04/05/23 10/03/24 History mcg/actuation mist for inhalation (Spiriva Respimat) albuterol sulfate 90 mcg/actuation 2 inh inhalation Q4H PRN shortness 06/25/23 10/03/24 Rx aerosol inhaler of breath or wheezing #8.5 grams albuterol sulfate 2.5 mg/3 mL 2.5 mg (3 mL) inhalation Q6H PRN 09/16/23 10/03/24 Rx (0.083 %) solution for nebulization shortness of breath or wheezing #90 mL furosemide 20 mg tablet 20 mg PO DAILY 01/03/24 10/03/24 History doxycycline hyclate 100 mg tablet 100 mg PO BID 7 days #14 tabs 09/28/24 10/03/24 Rx cholecalciferol (vitamin D3) 50 2,000 unit PO DAILY 10/03/24 10/03/24 History mcg (2,000 unit) tablet paroxetine HCl 30 mg tablet 30 mg PO DAILY 10/03/24 10/03/24 History Allergies Allergy/AdvReac Type Severity Reaction Status Date / Time ciprofloxacin (From Cipro) AdvReac Intermediate Vomiting Verified 09/28/24 11:33 metronidazole (From Flagyl) AdvReac Intermediate Vomiting Verified 09/28/24 11:33 Penicillins AdvReac Intermediate Vomiting Verified 09/28/24 11:33 sulfamethoxazole (From AdvReac Intermediate Vomiting Verified 09/28/24 11:33 Bactrim) trimethoprim (From Bactrim) AdvReac Intermediate Vomiting Verified 09/28/24 11:33 Exam Constitutional Vital Signs, click to edit/add: Last Vital Signs Temp 98.7 F 10/04/24 07:56 Pulse 81 10/04/24 07:56 Resp 16 10/04/24 07:56 BP 132/79 10/04/24 07:56 Pulse Ox 98 10/04/24 11:37 O2 Del Method Nasal Cannula 10/04/24 11:37 O2 Flow Rate 2 10/04/24 02:54 Documenting provider has reviewed patient's vital signs: yes Common normals: no apparent distress, oriented x3 and alert HENMT Common normals: normocephalic Eye Common normals: PERRL and EOMs intact bilaterally Respiratory Common normals: normal respiratory effort and clear to auscultation bilaterally Cardio Common normals: regular rate, regular rhythm, no gallops, no murmurs and no rub GI Common normals: Normal to inspection, nondistended, normoactive bowel sounds present and non-tender Extremity Common normals: no pedal edema Results Labs Labs: Short CBC 10/03/24 10/04/24 Range/Units 18:39 05:52 WBC 15.1 H 15.2 H (4.0-11.0) 10^3/uL Hgb 17.8 H 17.0 H (12.0-16.0) g/dL Hct 51.9 H 50.4 H (36.0-48.0) % Plt Count 310 275 (150-450) 10^3/uL BMP 10/03/24 10/04/24 18:39 05:52 Sodium 132 L 138 Potassium 3.7 3.5 Chloride 93 L 99 Carbon Dioxide 28.9 28.4 BUN 8.0 7.0 Creatinine 1.12 H 0.68 Glucose 506 H* 204 H Calcium 9.3 9.0 Liver Function 10/03/24 10/04/24 Range/Units 18:39 05:52 Total Bilirubin 0.5 0.5 (0.2-1.0) mg/dL AST 7 L 7 L (15-37) U/L ALT 11 L <6 L (14-59) U/L Alkaline Phosphatase 117 H 96 (46-116) U/L Albumin 3.0 L 2.6 L (3.4-5.0) g/dL Assessment and Plan Assessment and Plan (1) Abscess of left groin: (2) Diabetes mellitus with hyperglycemia, with long-term current use of insulin: (3) Hypertension: (4) Chronic obstructive pulmonary disease: (5) Paroxysmal atrial fibrillation: Plan Patient failed outpatient therapy with oral doxycline and formed abscess after 6 days of treatment. I&D performed in ER and await culture. Stop rocephin and change to zosyn for pseudomonas coverage with history of uncontrolled diabetes and continue vancomycin. Wound packed and nursing will change daily. Resume home medication. Plan for at least a 2 midnight stay for inpatient medically necessary services.
[2024-10-04 17:03] LABS: Glucometer 239 mg/dL (74-106)
[2024-10-04] MEDS: RIVAROXABAN 10 MG TABLET 20 MG PO (17:07)
[2024-10-04 20:01] LABS: Glucometer 162 mg/dL (74-106)
[2024-10-04] MEDS: INSULIN GLARGINE 300 UNIT/3 ML INSULN.PEN 60 UNIT SQ (21:12)
[2024-10-04] MEDS: VANCOMYCIN HCL 1,250 MG in 0.9 % SODIUM CHLORIDE 250 ML 167 MG IV (23:30)
[2024-10-05 03:53] VITALS: BP 121/73; PULSE 56; TEMP 36.4; O2SAT 96
[2024-10-05] MEDS: PIPERACILLIN SODIUM/TAZOBACTAM 3.375 GM in 0.9 % SODIUM CHLORIDE 50 ML IV (05:00)
[2024-10-05 05:47] VITALS: PULSE 72; O2SAT 96
[2024-10-05] MEDS: IPRATROPIUM/ALBUTEROL SULFATE 3 ML AMPUL.NEB IH ×2 (05:49→10:57)
[2024-10-05 05:55] LABS: Basophils Absolute Auto 0.1 10^3/uL (0.0-0.1); Basophils Percent Auto 0.5 % (0.2-2.0); Eosinophils Absolute Auto 0.2 10^3/uL (0.0-0.7); Eosinophils Percent Auto 1.6 % (0.9-7.0); Hematocrit 50.5 % (36.0-48.0); Hemoglobin 16.8 g/dL (12.0-16.0); Immature Granulocytes Abs Auto 0.03 10^3/uL (0.00-0.03); Immature Granulocytes Pct Auto 0.3 % (0.0-0.5); Lymphocytes Absolute Auto 2.5 10^3/uL (1.2-3.8); Lymphocytes Percent Auto 26.6 % (20.5-60.0); Mean Corpuscular HGB Conc 33.3 g/dL (29.9-35.2); Mean Corpuscular Hemoglobin 31.1 pg (26.7-34.0); Mean Corpuscular Volume 93.3 fL (81.0-99.0); Mean Platelet Volume 10.4 fL (9.5-13.5); Monocytes Absolute Auto 0.9 10^3/uL (0.3-0.8); Monocytes Percent Auto 9.2 % (1.7-12.0); Neutrophils Absolute Auto 5.8 10^3/uL (1.4-6.5); Neutrophils Percent Auto 61.8 % (43.0-75.0); Platelet Count 254 10^3/uL (150-450); Red Blood Count 5.41 10^6/uL (4.20-5.40); Red Cell Distribution Width 12.5 % (11.0-15.0); White Blood Count 9.4 10^3/uL (4.0-11.0)
[2024-10-05 06:12] LABS: Alanine Aminotransferase 9 U/L (14-59); Albumin Globulin Ratio 0.6; Albumin Level 2.4 g/dL (3.4-5.0); Alkaline Phosphatase 89 U/L (46-116); Anion Gap 11.6; Aspartate Amino Transferase 9 U/L (15-37); BUN Creatinine Ratio 15.4; Bilirubin Total 0.3 mg/dL (0.2-1.0); Chloride 100 mmol/L (98-107); Estimated GFR (African America >60 (>=60 mL/min/1.73m^2); Estimated GFR (Non-African Ame >60 (>=60 mL/min/1.73m^2); Globulin 3.8 g/dL; Glucose 147 mg/dL (74-106); Potassium 3.6 mmol/L (3.5-5.1); Sodium 139 mmol/L (136-145); Total Protein 6.2 g/dL (6.4-8.2)
[2024-10-05] MEDS: GABAPENTIN 300 MG CAPSULE 600 MG PO (06:12)
[2024-10-05 06:35] VITALS: BP 128/63; PULSE 61; TEMP 36.5; O2SAT 91
[2024-10-05] MEDS: ASPIRIN 81 MG TABLET.DR PO (08:33)
[2024-10-05] MEDS: CHOLECALCIFEROL (VITAMIN D3) 25 MCG/1,000 UNITS TABLET 50 MCG PO (08:33)
[2024-10-05] MEDS: LOSARTAN POTASSIUM 50 MG TABLET 100 MG PO (08:33)
[2024-10-05] MEDS: SPIRONOLACTONE 25 MG TABLET PO (08:33)
[2024-10-05] MEDS: POTASSIUM CHLORIDE 10 MEQ ER TABLET PO (08:33)
[2024-10-05] MEDS: PANTOPRAZOLE SODIUM 40 MG TABLET.DR PO (08:34)
[2024-10-05] MEDS: ATORVASTATIN CALCIUM 20 MG TABLET PO (08:34)
[2024-10-05] MEDS: CALCIUM CARBONATE 600 MG/VITAMIN D3 400 IU TABLET 1 TAB PO (08:34)
[2024-10-05] MEDS: CARVEDILOL 12.5 MG TABLET PO (08:34)
[2024-10-05] MEDS: FUROSEMIDE 20 MG TABLET PO (08:34)
[2024-10-05] MEDS: PAROXETINE HCL 20 MG TABLET 30 MG PO (08:34)
[2024-10-05] MEDS: CANAGLIFLOZIN 100 MG TABLET 300 MG PO (08:34)
[2024-10-05] MEDS: VANCOMYCIN HCL 1,250 MG in 0.9 % SODIUM CHLORIDE 250 ML 125 MG IV (09:22)
[2024-10-05] MEDS: 0.9 % SODIUM CHLORIDE 250 ML 10 ML IV (09:22)
--- NOTE | 2024-10-05 10:22 | CM.NOTE ---
Rounds made with Dr. Fernández, pt will discharge to home today on oral antibiotics. Redness to groin has decreased, pt will need daily dressing change to wound. Dr. Fernández will change pt to OBS status.
[2024-10-05] MEDS: BUDESONIDE 0.5 MG/2 ML AMPULE NEB IH (10:57)
[2024-10-05 10:59] VITALS: O2SAT 97; O2SAT 98
--- NOTE | 2024-10-05 11:21 | SWNOTE1 ---
Case management spoke to pt and she does need a home health nurse to come in to assist with wound care, has daily dressing changes. Pt voiced she has had [facility] in past and would like them again. Case management spoke to her about HH and [facility] and she wants to do HH. Referral sent to [facility]. Referral included face sheet, ED note, H&P, and wound assessment.
--- NOTE | 2024-10-05 12:52 | SWNOTE1 ---
[facility] EJ faxed CRF and dc med rec to [address] EJ updated nurse.
[2024-10-05 13:43] VITALS: BMI 30.4
--- NOTE | 2024-10-05 14:24 | P.DS_ITS ---
DS: Providers Provider Date of admission: 10/04/24 02:45 Primary care physician: Maira Rush NP Admitting clinician: Brandon Monterroso Attending physician on admission: Brandon Monterroso Consults: 10/04/24 Consult to Lumber Piler Operator Routine Reason for consult:: Other Other reason:: General housing Attending physician on discharge: Shaikh Pradeep Discharging clinician: Shaikh Pradeep Anticipated date of discharge: 10/05/24 DS: Diagnosis Discharge Diagnosis (1) Abscess of left groin: (2) Diabetes mellitus with hyperglycemia, with long-term current use of insulin: Qualifiers: Diabetes mellitus type: type 2 Qualified Code(s): E11.65 - Type 2 diabetes mellitus with hyperglycemia; Z79.4 - FDC (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 (3) Hypertension: Qualifiers: Hypertension type: primary hypertension Qualified Code(s): I10 - Essential (primary) hypertension (4) Chronic obstructive pulmonary disease: Qualifiers: COPD type: unspecified COPD Qualified Code(s): J44.9 - Chronic obstructive pulmonary disease, unspecified (5) Paroxysmal atrial fibrillation: DS: Summary Hospital Course Hospital Course: 64 y/o female presented to ER with erythema, pain and swelling in left groin area, first noticed one week ago. Patient was discharged from ED first time on oral Doxycycline. Her symptoms worsened despite using abx and returned to ED ON 10/03/24 and was noted to have worsening of her cellulitis but also had developed a small abscess. I&D at bedside was performed in ED with copious purulent discharged expressed and sent for Culture. She was admitted for IV antibiotics and inpatient monitoring. Patient was treated with IV vancomycin and IV Zosyn. Patient clinically improved during the course of admission with improvement in her leukocytosis, erythema, pain and was noted to have no purulent discharge from groin abscess. Patient is medically stable for discharge and will be sent home on Bactrim and Augmentin. Patient was instructed to follow-up with PCP in 1 to 2 weeks. Patient was educated on worrisome signs and symptoms and was instructed to return to ED if she develop worsening pain, erythema, tenderness. Status at Discharge Functional status at discharge: independent ambulation Overall status at discharge: patient is back to baseline Time Spent with Patient Time attestation: Total time spent providing and/or coordinating discharge services: Time spent: greater than 30 minutes Exam Constitutional Vital Signs, click to edit/add: Last Vital Signs Temp 97.7 F 10/05/24 06:35 Pulse 61 10/05/24 06:35 Resp 18 10/05/24 06:35 BP 128/63 10/05/24 06:35 Pulse Ox 98 10/05/24 10:59 O2 Del Method Nasal Cannula 10/05/24 10:59 O2 Flow Rate 2 10/05/24 06:35 Documenting provider has reviewed patient's vital signs: yes Common normals: no apparent distress and oriented x3 General appearance: cooperative Respiratory Common normals: normal respiratory effort and clear to auscultation bilaterally Effort & inspection: able to speak in complete sentences Auscultation: clear to auscultation bilaterally Cardio Common normals: regular rate, S1 normal heart sound and S2 normal heart sound Rate: regular rate Heart sounds: S1 normal and S2 normal GI Common normals: Normal to inspection, nondistended, normoactive bowel sounds present, soft to palpation, non-tender and no hepatosplenomegaly Palpation: soft and no hepatosplenomegaly Other: Left groin - minimal residual erythema. No drainage noted from abscess noted Extremity Common normals: no clubbing, cyanosis or edema Neuro Common normals: oriented x3, moves all extremities and no focal motor deficits Psych Common normals: mental status grossly normal, denies hallucinations, denies homicidal ideation and denies suicidal ideation DS: Data Data Completed and Pending Labs on day of discharge: Labs from last 24 hours 10/05/24 10/04/24 10/04/24 05:49 19:50 17:02 WBC 9.4 RBC 5.41 H Hgb 16.8 H Hct 50.5 H MCV 93.3 MCH 31.1 MCHC 33.3 RDW 12.5 Plt Count 254 MPV 10.4 Neut % (Auto) 61.8 Lymph % (Auto) 26.6 [place] % (Auto) 9.2 Eos % (Auto) 1.6 Baso % (Auto) 0.5 Neut # (Auto) 5.8 Lymph # (Auto) 2.5 [place] # (Auto) 0.9 H Eos # (Auto) 0.2 Baso # (Auto) 0.1 Abs Immat Gran (auto) 0.03 Imm/Tot Granulo (auto) 0.3 Sodium 139 Potassium 3.6 Chloride 100 Carbon Dioxide 31.0 Anion Gap 11.6 BUN 10.0 Creatinine 0.65 Est GFR ( Amer) >60 Est GFR (Non-Af Amer) >60 BUN/Creatinine Ratio 15.4 Glucose 147 H Calcium 9.0 Total Bilirubin 0.3 AST 9 L ALT 9 L Alkaline Phosphatase 89 Total Protein 6.2 L Albumin 2.4 L Globulin 3.8 Albumin/Globulin Ratio 0.6 POC Glucose 162 H 239 H Discharge Plan Discharge Disposition: Home Health Service Condition: Fair Discharge Medications: New sulfamethoxazole-trimethoprim [Bactrim DS] 800-160 mg tablet 1 tab PO BID 7 Days Qty: 14 0RF amoxicillin-pot clavulanate 875-125 mg tablet 1 tab PO BID 7 Days Qty: 14 0RF Continued albuterol sulfate 90 mcg/actuation HFA aerosol inhaler 2 inh inhalation Q4H PRN (Reason: shortness of breath or wheezing) Qty: 8.5 0RF albuterol sulfate 2.5 mg /3 mL (0.083 %) solution for nebulization 2.5 mg inhalation Q6H PRN (Reason: shortness of breath or wheezing) Qty: 90 0RF furosemide 20 mg tablet 20 mg PO DAILY aspirin 81 mg tablet,delayed release (DR/EC) 81 mg PO DAILY budesonide-formoterol [Symbicort] 160-4.5 mcg/actuation HFA aerosol inhaler 2 puff INHALATION BID calcium carbonate-vitamin D3 500 mg-10 mcg (400 unit) tablet 1 tab PO BID carvedilol 12.5 mg tablet 12.5 mg PO BID Jardiance 25 mg tablet 25 mg PO DAILY gabapentin 600 mg tablet 600 mg PO TID insulin aspart U-100 [Novolog FlexPen U-100 Insulin] 100 unit/mL (3 mL) insulin pen 1 sliding scale dose SUBCUT TIDWMEAL insulin glargine [Lantus Solostar U-100 Insulin] 100 unit/mL (3 mL) insulin pen 60 unit SUBCUT QPM losartan 100 mg tablet 100 mg PO DAILY pantoprazole 40 mg tablet,delayed release (DR/EC) 40 mg PO DAILY potassium chloride 10 mEq capsule, extended release 10 meq PO DAILY Xarelto 20 mg tablet 20 mg PO DAILY rosuvastatin 5 mg tablet 5 mg PO DAILY spironolactone 25 mg tablet 25 mg PO BID Spiriva Respimat 2.5 mcg/actuation mist 2 puff INHALATION DAILY cholecalciferol (vitamin D3) 50 mcg (2,000 unit) tablet 2,000 unit PO DAILY paroxetine HCl 30 mg tablet 30 mg PO DAILY Discontinued doxycycline hyclate 100 mg tablet 100 mg PO BID 7 Days Qty: 14 0RF Activity: increase activity as tolerated Diet: advance to your usual diet Print Language: Surinamese Patient Instructions: Sulfamethoxazole/Trimethoprim (By mouth), Amoxicillin (By mouth) (Amoxicot, Amoxil, Amoxil Pediatric, Trimox,..., Abscess (GEN) Decorator Mannequin/Motor Vehicle Assembler Instructions: [facility]charge with [facility] They will assist with wound care/packing. Phone number is [phone]. They should contact you today and come see you tomorrow. Please call if you do not hear from them by tomorrow morning. 10/06/24 Forms: Portal Instructions Follow Up Appointments: October 14 @ 2:20pm with Maira Rush NP [phone] Discharge Date/Time: 10/05/24 13:31
--- NOTE | 2024-10-06 08:58 | SWNOTE1 ---
late entry. SW was consulted for general housing. Pt does live in an apartment and no concerns about losing her apartment at this time.
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
== END 2024-10-05 13:31 | disposition home health service (06) ==
LOC: ER 10-04 01:23 → MS 10-04 14:45
PROVIDERS: Emergency Medicine; Family Medicine; Registered Nurse; Admitting Provider Internal Medicine; Emergency Provider Emergency Medicine; PCP Nurse Practitioner; Visit Provider Internal Medicine
DX: L02.214 Cutaneous abscess of groin (principal); E11.65 Type 2 diabetes mellitus with hyperglycemia; Z79.4 Long term (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; Z79.84 Long term (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 of oral hypoglycemic drugs; Z90.49 Acquired absence of other specified parts of digestive tract; Z90.710 Acquired absence of both cervix and uterus; F17.200 Nicotine dependence, unspecified, uncomplicated; I10 Essential (primary) hypertension; J44.9 Chronic obstructive pulmonary disease, unspecified; I48.0 Paroxysmal atrial fibrillation; E11.628 Type 2 diabetes mellitus with other skin complications; L03.314 Cellulitis of groin
CPT/HCPCS: 10060; 36415; 72193; 80053; 80202; 82948; 83605; 85025; 87040; 87070; 87075; 94640; 94667; 94668; 94761; 96365; 96366; 96367; 96368; 96375; 99285; G0378; J0696; J1817; J1885; J2543; J3370; Q9967

== ENCOUNTER 2025-01-09 18:33 | Emergency (ER) | payer OTHER, SELFPAY ==
[2025-01-09] VITALS (19 sets, daily range): BP systolic 108–121; BP diastolic 57–68; PULSE 65–108; TEMP 36.7; O2SAT 92–97; BMI 25.8
--- NOTE | 2025-01-09 18:41 | XR_ITS ---
[facility] [place] [id number] Patient Name: RODDY HORN MRN: [id number] date: 1960 Sex: F Assigned Patient Location: ED.MAIN Current Patient Location: ED.MAIN Accession/Order Number: [id number] Exam Date: 01/09/2025 18:51 Report Date: 01/09/2025 18:51 At the request of: CHLOE WRIGHT MD Procedure: XR chest 1V Single view chest: CLINICAL HISTORY: cp COMPARISON: Chest 05/28/2024 FINDINGS: The heart is normal in size. Mild bibasilar atelectasis. No consolidation pneumothorax pleural effusion or free air. XR/XR chest 1V IMPRESSION: MILD BIBASILAR ATELECTASIS. NO CONSOLIDATION TO SUGGEST PNEUMONIA. Impression dictated by: Darin Barrera Jr., D.O. 01/09/2025 6:51 PM Dictation Location: [place] [id number] Electronically authenticated by: [id number] Y Date: 01/09/2025 18:51
--- NOTE | 2025-01-09 18:41 | ECG_ITS ---
[facility] Test Date: 2025-01-09 Pat Name: RODDY HORN Department: Room: - Gender: Female Undergraduate Advisor: : 1960 Requested By: [id number] Order Number: [id number] Reading MD: VINNIE WILLIAMSON M.D. Measurements Intervals [place] Rate: 70 P: 26 MT: 166 QRS: -17 QRSD: 80 T: 150 QT: 352 QTc: 372 Interpretive Statements 1100 Sinus rhythm 3433 Septal myocardial infarction, probably old 3633 Inferior myocardial infarction, probably old 8102 Low QRS voltage in chest leads 9150 abnormal ECG Compared to ECG 06/01/2024 00:27:06 Low QRS voltage now present Left-axis deviation no longer present Myocardial infarct finding still present Electronically Signed On 01-09-2025 20:33:31 EDT by VINNIE WILLIAMSON M.D.
--- OUTSIDE RECORDS SUMMARY | 2025-01-09 18:45 | XMS_ITS | CCD ---
Author Organization [facility] Care Team Providers Care Animal Shelter Manager Name Role Phone PHYSICIAN, DEFAULT Admitting Unavailable PHYSICIAN, DEFAULT Attending Unavailable AICHHOLZ, MAIRA Primary Care Unavailable PHYSICIAN, DEFAULT Admitting Unavailable PHYSICIAN, DEFAULT Attending Unavailable AICHHOLZ, MAIRA Primary Care Unavailable AICHHOLZ, REFRACTORY SPECIALIST MAIRA Primary Care Unavailable SACHA MONTANO Admitting Unavailable MARILEE .KIAN Consulting Unavailabl e SACHA MONTANO Attending Unavailable Robert Hart Consulting Unavailable HANNAH TOVAR Admitting Unavailable AICHHOLZ, REFRACTORY SPECIALIST MAIRA Primary Care Unavailable HANNAH TOVAR Attending Unavailable HANNAH TOVAR Consulting Unavailable AICHHOLZ, REFRACTORY SPECIALIST MAIRA Consulting Unavailable AICHHOLZ, REFRACTORY SPECIALIST MAIRA Primary Care Unavailable AICHHOLZ, REFRACTORY SPECIALIST MAIRA Admitting Unavailable AICHHOLZ, REFRACTORY SPECIALIST MARIA Attending Unavailable AICHHOLZ, REFRACTORY SPECIALIST MAIRA Attending Unavailable AICHHOLZ, REFRACTORY SPECIALIST MAIRA Consulting Unavailable AICHHOLZ, REFRACTORY SPECIALIST MAIRA Primary Care Unavailable AICHHOLZ, REFRACTORY SPECIALIST MAIRA Admitting Unavailable Robert Hart Consulting Unavailable AICHHOLZ, REFRACTORY SPECIALIST MAIRA Attending Unavailable AICHHOLZ, REFRACTORY SPECIALIST MAIRA Consulting Unavailable AICHHOLZ, REFRACTORY SPECIALIST MAIRA Primary Care Unavailable AICHHOLZ, REFRACTORY SPECIALIST MAIRA Admitting Unavailable DR CORINE ANGELA V Consulting Unavailable AICHHOLZ, REFRACTORY SPECIALIST MAIRA Primary Care Unavailable AICHHOLZ, REFRACTORY SPECIALIST MAIRA Admitting Unavailable AICHHOLZ, REFRACTORY SPECIALIST MAIRA Attending Unavailable AICHHOLZ, REFRACTORY SPECIALIST MAIRA Consulting Unavailable DR TERI MAURO Admitting Unavailable AICHHOLZ, REFRACTORY SPECIALIST MAIRA Primary Care Unavailable DR TERI MAURO Attending Unavailable DR TERI MAURO Consulting Unavailable DR CORINE ANGELA V Consulting Unavailable DR BRANDON MCFARLANE Consulting Unavailable DR NEHA GATICA Consulting Unavailable YECENIA MONTERO Consulting Unavailable Aichholz RASCHEL KNITTING MACHINE OPERATOR, Maira Unavailable Loc TALBERT, Brandon Primary Care Provider [phone] CHAPITO DAMICO Referring Unavailable AICHHOLZ, MAIRA J Primary Care Unavailable Aichholz RASCHEL KNITTING MACHINE OPERATOR, Maira Unavailable AICHHOLZ, MAIRA J Primary Care Unavailable VIKTORIYA ADAM Attending Unavailable JEFFERY, MUHAMID M Admitting Unavailable MARA, CHIKI Attending Unavailable CHIKI TERRY Referring Unavailable AICHHOLZ, MARIA J Primary Care Unavailable JEFFERYROSSHAMID M Attending Unavailable JEFFERY MUHAMID M Referring Unavailable AICHHOLZ, MAIRA J Primary Care Unavailable STEPHEN RAMOS Attending Unavailable AICHHOLZ, MAIRA J Referring Unavailable AICHHOLZ, MAIRA J Primary Care Unavailable Aichholz RASCHEL KNITTING MACHINE OPERATOR, Maira Unavailable CARROL SWENSON Attending Unavailable Chandrika Danielson MA Unavailable [facility] Unavailable AICHHOLZ, MAIRA Attending Unavailable AICHHOLZ, MAIRA [...] sources) Ciprofloxacin Drug Allergy 10-11-19 12 [facility] (2 sources) metroNIDAZOLE Drug Allergy 10-11-19 12 [facility] (6 sources) Penicillins; Translations: [PENICILLINS] Drug allergy (disorder) 10-11-19 12 [facility] (2 sources) Sulfamethoxazole / Trimethoprim Drug Allergy 10-11-19 12 [facility] (20 sources) Ciprofloxacin; Translations: [CIPROFLOXACIN] Drug Allergy 05-21-20 14 GI intolerance [facility] (20 sources) metroNIDAZOLE; Translations: [METRONIDAZOLE] Drug Allergy 05-21-20 14 GI intolerance [facility] (20 sources) Penicillins Drug Allergy 06-29-19 24 GI intolerance [facility] (20 sources) Sulfamethoxazole Allergy to substance 06-29-19 24 GI intolerance [facility] (20 sources) Trimethoprim Drug Allergy 06-29-19 24 GI intolerance [facility] (4 sources) Sulfamethoxazole / Trimethoprim; Translations: [SULFAMETHOXAZOLE-TR IMETHOPRIM] Drug Allergy 05-21-20 14 [facility] Medications Current Medications Medication Drug Class(es) Dates Sig (Normalized) Sig (Original) albuterol 0.83 mg/ml inhalation solution (20 sources) beta2-Adrenergic Agonist Start: 11-18-2024 End: 12-18-2024 albuterol (2.5 MG/3ML) 0.083% nebulizer solution Indications: COPD mixed type (HCC) Take 3 mL (2.5 mg) by nebulization every 6 (six) hours if needed for wheezing or shortness of breath 360 mL 1 11/18/2024 Active Start: 08-26-2024 End: 09-25-2024 albuterol (2.5 MG/3ML) 0.083 % nebulizer solution Indications: COPD mixed type (CMS/HCC) Take 3 mL (2.5 mg) by nebulization every 6 (six) hours if needed for wheezing or shortness of breath 360 mL 2 08/26/2024 Active Start: 09-16-2023 End: 06-27-2024 albuterol (2.5 MG/3ML) 0.083 % nebulizer solution Indications: COPD mixed type (CMS/HCC) Take 3 mL (2.5 mg) by nebulization every 6 (six) hours if needed for wheezing or shortness of breath 360 mL 2 05/28/2024 Active amoxicillin 875 mg / clavulanate 125 mg oral tablet (10 sources) Penicillin-class Antibacterial Start: 10-05-2024 End: 12-14-2024 take 1 tablet by mouth in the morning amoxicillin-clavulanate (Augmentin) 875-125 MG tablet Take 1 tablet by mouth in the morning and 1 tablet before bedtime. 10/05/2024 12/14/2024 Discontinued (Therapy completed) aspirin 81 mg delayed release oral tablet (20 sources) Platelet Aggregation Inhibitor, Nonsteroidal Anti-inflammatory Drug Start: 09-17-2024 take 1 tablet by mouth once daily Aspirin Low Dose 81 MG EC tablet Take 81 mg by mouth Daily 09/17/2024 Active Start: 01-21-2024 End: 08-06-2024 take 1 tablet by mouth once daily Aspirin Low Dose 81 MG EC tablet Take 81 mg by mouth Daily 07/20/2024 08/06/2024 Discontinued (Therapy completed) Blood Glucose Calibration (True Metrix Level 1) Low solution (1 source) Start: 12-15-2024 Blood Glucose Calibration (True Metrix Level 1) Low solution Indications: Type 2 diabetes mellitus with hyperglycemia, with long-term current use of insulin (HCC) USE DIRECTED PER PACKAGE INSTRUCTIONS *NEW RX REQUEST* 1 each 12/15/2024 Active Blood Glucose Calibration (True Metrix Level 2) Normal solution (1 source) Start: 12-15-2024 Blood Glucose Calibration (True Metrix Level 2) Normal solution Indications: Type 2 diabetes mellitus with hyperglycemia, with long-term current use of insulin (HCC) USE DIRECTED PER PACKAGE INSTRUCTIONS *NEW RX REQUEST* 1 each 12/15/2024 Active Blood Glucose Calibration (True Metrix Level 3) High solution (1 source) Start: 12-15-2024 Blood Glucose Calibration (True Metrix Level 3) High solution Indications: Type 2 diabetes mellitus with hyperglycemia, with long-term current use of insulin (HCC) USE DIRECTED PER PACKAGE INSTRUCTIONS *NEW RX REQUEST* 1 each 12/15/2024 Active Blood Glucose Monitoring Suppl (True Metrix Meter) w/Device kit (1 source) Start: 12-15-2024 Blood Glucose Monitoring Suppl (True Metrix Meter) w/Device kit Indications: Type 2 diabetes mellitus with hyperglycemia, with long-term current use of insulin (HCC) USE FOUR TIMES A DAY *NEW RX REQUEST* 1 kit 1 12/15/2024 Active 60 actuat budesonide 0.16 mg/actuat / formoterol fumarate 0.0045 mg/actuat metered dose inhaler (20 sources) Corticosteroid , beta2-Adrenerg ic Agonist Start: 09-20-2024 End: 10-20-2024 take 2 puff(s) by inhalation in the morning budesonide-formotero l (Symbicort) 160-4.5 MCG/ACT inhaler Indications: COPD mixed type (HCC) Inhale 2 puffs in the morning and 2 puffs before bedtime. 10.2 g 5 09/20/2024 Active Start: 11-06-2023 End: 03-18-2024 take 2 puff(s) by inhalation in the morning budesonide-formoterol (Symbicort) 160-4.5 MCG/ACT inhaler Indications: COPD mixed [...] AFTER USE* 10.2 g 10 05/30/2023 Active 24 hr buPROPion hydrochloride 150 mg extended release oral tablet (14 sources) Aminoketone Start: 10-14-2024 End: 01-13-2025 take 1 tablet by mouth every twenty-four hours in the morning buPROPion XL (Wellbutrin XL) 150 MG 24 hr tablet Indications: Mild episode of recurrent major depressive disorder Take 1 tablet (150 mg) by mouth in the morning. Do not crush, chew, or split. 30 tablet 2 12/14/2024 01/13/2025 Active calcium carbonate 1250 mg / cholecalciferol 125 unt oral tablet (20 sources) Vitamin D Start: 11-13-2023 End: 08-26-2024 take 1 tablet by mouth in the morning Calcium Carb-Cholecalcifero l (Calcium+D3) 500-10 MG-MCG tablet Indications: Osteoporosis, unspecified osteoporosis type, unspecified pathological fracture presence Take 1 tablet by mouth in the morning and 1 tablet before bedtime. 60 tablet 5 08/26/2024 Active carvedilol 12.5 mg oral tablet (20 sources) alpha-Adrenergic Dania, beta-Adrenergic Dania Start: 06-24-2023 take 1 tablet by mouth in the morning carvedilol (Coreg) 12.5 MG tablet Take 1 tablet by mouth in the morning and 1 tablet in the evening. Take with meals. 06/24/2023 Active cholecalciferol 0.05 mg oral tablet (20 sources) Vitamin D Start: 04-22-2024 End: 05-22-2024 cholecalciferol (Vitamin D-3) 50 MCG (1999 UT) tablet Take by mouth Daily 05/04/2024 Active Start: 01-03-2024 End: 04-22-2024 take 1 tablet by mouth once daily cholecalciferol (Vitamin D-3) 50 MCG (1999 UT) tablet Take 2,000 Units by mouth Daily 01/03/2024 04/22/2024 Discontinued (Reorder) clindamycin 300 mg oral capsule (8 sources) Lincosamide Antibacterial Start: 10-05-2024 End: 10-16-2024 clindamycin (Cleocin) 300 MG capsule Indications: Abscess of left groin Take 1 capsule (300 mg) by mouth in the morning and 1 capsule (300 mg) at noon and 1 capsule (300 mg) in the evening and 1 capsule (300 mg) before bedtime. Do all this for 10 days. 40 capsule 10/06/2024 10/16/2024 Active Continuous Glucose Utility Bill Complaints Investigator (FreeStyle Julisa 2 Germfask) device (20 sources) Start: 04-29-2024 Continuous Glu cose Utility Bill Complaints Investigator (FreeStyle Julisa 2 Germfask) device Indications: Type 2 diabetes mellitus with hyperglycemia, with long-term current use of insulin ([facility]) USE DIRECTED 1 each 04/29/2024 Active Start: 04-29-2024 Continuous Glu cose Utility Bill Complaints Investigator (FreeStyle Julisa 2 Germfask) device Indications: Type 2 diabetes mellitus with hyperglycemia, with long-term current use of insulin ([facility]) USE DIRECTED 1 each 04/29/2024 Active Start: 04-27-2024 End: 04-27-2025 Continuous Glucose Utility Bill Complaints Investigator (FreeStyle Julisa 2 Germfask) device Indications: Type 2 diabetes mellitus with hyperglycemia, with long-term current use of insulin ([facility]) 1 kit every 14 (fourteen) days 1 each 1 04/27/2024 04/27/2025 Active Start: 04-27-2024 End: 04-27-2025 Continuous Glucose Utility Bill Complaints Investigator (FreeStyle Julisa 2 Germfask) device Indications: Type 2 diabetes mellitus with hyperglycemia, with long-term current use of insulin ([facility]) 1 kit every 14 (fourteen) days 1 each 1 04/27/2024 04/27/2025 Active Start: 01-26-2024 End: 05-06-2024 Continuous Glucose Utility Bill Complaints Investigator (FreeStyle Julisa 2 Germfask) device 01/26/2024 05/06/2024 Discontinued (Therapy completed) Start: 01-26-2024 Continuous Glu cose Utility Bill Complaints Investigator (FreeStyle Julisa 2 Germfask) device 01/26/2024 Active Continuous Glucose Sensor (FreeStyle Julisa 2 Sensor) [facility] (20 sources) Start: 11-04-2024 Continuous Glu cose Sensor (FreeStyle Julisa 2 Sensor) [facility] Indications: Type 2 diabetes mellitus with hyperglycemia, with long-term current use of insulin ([facility]) USE TO MONITOR BLOOD SUGAR DIRECTED. CHANGE SENSOR EVERY 14 DAYS. 2 each 11 11/04/2024 Active Start: 04-22-2024 Continuous Glu cose Sensor (FreeStyle Julisa 2 Sensor) [facility] Indications: Type 2 diabetes mellitus with hyperglycemia, with long-term current use of insulin ([facility]) 1 kit every 14 (fourteen) days 6 each 1 04/22/2024 Active Start: 02-07-2024 End: 05-06-2024 Continuous Glucose Sensor (F reeStyle Julisa 2 Sensor) [facility] 02/07/2024 05/06/2024 Discontinued (Therapy completed) Start: 02-07-2024 Continuous Glu cose Sensor (FreeStyle Julisa 2 Sensor) [facility] 02/07/2024 Active empagliflozin 25 mg oral tablet (20 sources) Sodium-Glucose Cotransporter 2 Inhibitor Start: 06-24-2023 End: 10-18-2024 take 1 tablet by mouth once daily empagliflozin (Jardiance) 25 MG Indications: Type 2 diabetes mellitus with diabetic neuropathy, with long-term current use of insulin ([facility]) Take 1 tablet (25 mg) by mouth Daily 30 tablet 5 07/20/2024 Active fluconazole 150 mg oral tablet (9 sources) Azole Antifungal Start: 12-01-2024 End: 12-01-2024 fluconazole (Diflucan) 150 MG tablet Indications: Gill infection of genital region Every 3 days for a total of 4 doses 4 tablet 12/01/2024 Active furosemide 20 mg oral tablet (20 sources) Loop Diuretic Start: 05-04-2024 take 1 tablet by mouth in the morning furosemide (Lasix) 20 MG tablet Take 20 mg by mouth in the morning. 05/04/2024 Active Start: 06-24-2023 End: 04-22-2024 take 1 tablet by mouth in the morning furosemide (Lasix) 20 MG tablet Take 1 tablet by mouth in the morning. 06/24/2023 04/22/2024 Discontinued (Therapy completed) gabapentin 600 mg oral tablet (20 sources) Anti-epileptic Agent Start: 01-21-2024 End: 11-04-2024 take 1 tablet by mouth in the morning, then take 1 tablet by mouth in the evening, then take 1 tablet by mouth at bedtime gabapentin (Neurontin) 600 MG tablet Indications: Diabetic polyneuropathy associated with type 2 diabetes mellitus (HCC) Take 1 tablet (600 mg) by mouth in the morning and 1 tablet (600 mg) in the evening and 1 tablet (600 mg) before bedtime. 270 tablet 1 08/06/2024 Active 3 ml insulin aspart, human 100 unt/ml pen injector (20 sources) Insulin Analog Start: 05-22-2024 inject 1 [IU] by subcutaneous injection once daily NovoLOG FLEXPEN 100 UNIT/ML pen Indications: Type 2 diabetes mellitus with hyperglycemia, with long-term current use of insulin (HCC) INJECT 15-18-20 UNITS SUBCUTANEOUSLY TO MEAL SIZE [...] neuropathy, with long-term current use of insulin ([facility]/HCC) INJECT 15-18-20 UNITS SUBCUTANEOUSLY TO MEAL SIZE, PLUS ISSUED SLIDING SCALE *EXPECTED DAILY DOSAGE: 70 UNITS* 15 mL 2 03/25/2024 04/21/2024 Discontinued (Therapy completed) Start: 09-20-2023 NovoLOG FLEXPE N 100 UNIT/ML pen Sliding 0-6 units (6units for BS being 300) 09/20/2023 Active 3 ml insulin glargine 100 unt/ml pen injector (20 sources) Insulin Analog Start: 08-11-2024 Lantus SoloSta r 100 UNIT/ML pen Indications: Type 2 diabetes mellitus with hyperglycemia, with long-term current use of insulin (HCC) INJECT 60 UNITS SUBCUTANEOUSLY AT BEDTIME 15 mL 10 08/11/2024 Active Start: 04-21-2024 End: 10-18-2024 Lantus SoloStar 100 UNIT/ML pen Indications: Type 2 diabetes mellitus with hyperglycemia, with long-term current use of insulin (CMS/HCC) INJECT 40 UNITS SUBCUTANEOUSLY (UNDER THE SKIN) 30 mL 1 04/23/2024 Active Start: 06-24-2023 End: 04-21-2024 Lantus SoloStar 100 UNIT/ML pen Inject 60 Units under the skin at bedtime 15 units 06/24/2023 04/21/2024 Discontinued (Reorder) 3 ml insulin lispro 100 unt/ml pen injector (20 sources) Insulin Analog Start: 08-06-2024 insulin lispro (HumaLOG) 100 UNIT/ML injection Inject 2-10 Units under the skin in the morning and 2-10 Units at noon and 2-10 Units in the evening. Inject with meals. 08/06/2024 Active Start: 04-23-2024 inject 10 [IU] by chatman bcutaneous injection three times daily at mealtime insulin lispro (HumaLOG Winston KwikPen) 100 UNIT/ML pen Indications: Type 2 diabetes mellitus with hyperglycemia, with long-term current use of insulin (HCC) INJECT TEN UNITS SUBCUTANEOUSLY (UNDER THE SKIN) [...] Units in the evening. Inject with meals. 08/06/2024 Active isopropyl alcohol 0.7 ml/ml medicated pad (20 sources) Start: 11-17-2024 Alcohol Swabs (Alcohol Prep) 70 % pads USE DIRECTED FIVE TIMES A DAY 11/17/2024 Active Start: 07-01-2024 End: 10-09-2024 Alcohol Swabs (Alcohol Prep) 70 % pads Indications: Type 2 diabetes mellitus without complication, with long-term current use of insulin 1 each by Other route 5 (five) times a day 500 each 3 07/01/2024 10/09/2024 Active Start: 11-09-2023 End: 07-01-2024 Alcohol Swabs (Easy Touch Al cohol Prep Medium) 70 % pads Apply 1 each topically in the morning and 1 each at noon and 1 each in the evening and 1 each before bedtime. 11/09/2023 07/01/2024 Discontinued Start: 07-01-2023 End: 10-09-2023 Alcohol Swabs (Easy Touch Al cohol Prep Medium) 70 % pads Indications: Type 2 diabetes mellitus with diabetic neuropathy, with long-term current use of insulin ([facility]/HCC) Apply 1 each topically in the morning and 1 each at noon and 1 each in the evening and 1 each before bedtime. 400 each 3 07/01/2023 10/09/2023 Active loperamide hydrochloride 2 mg oral capsule (2 sources) Opioid Agonist Start: 07-16-2024 End: 07-26-2024 take 1 capsule by mouth four times daily as needed for diarrhea loperamide (Imodium) 2 MG capsule Indications: Diarrhea, unspecified type Take 1 capsule (2 mg) by mouth 4 (four) times a day as needed for diarrhea for up to 10 days 40 capsule 07/16/2024 07/26/2024 Active losartan potassium 100 mg oral tablet (20 sources) Angiotensin 2 Receptor Dania Start: 01-21-2024 End: 11-04-2024 take 1 tablet by mouth once daily losartan (Cozaar) 100 MG tablet Indications: Primary hypertension Take 1 tablet (100 mg) by mouth Daily 90 tablet 1 08/06/2024 Active Start: 06-26-2023 End: 07-26-2023 take 1 [...] for dizziness 02/24/2024 04/22/2024 Discontinued (Therapy completed) nystatin 415898 unt/ml topical cream (5 sources) Polyene Antifungal Start: 10-14-2024 End: 10-28-2024 nystatin (Mycostatin) cream Indications: Gill rash of groin Apply topically in the morning and before bedtime. Do all this for 14 days. 60 g 10/14/2024 10/28/2024 Active nystatin [id number] unt/ml / triamcinolone acetonide 1 mg/ml topical cream (9 sources) Polyene Antifungal, Corticosteroid Start: 12-01-2024 End: 01-30-2025 nystatin-triamcinolo ne (Mycolog II) cream Indications: Gill infection of genital region Apply to affect area twice a day for 14 days 60 g 1 12/01/2024 01/30/2025 Active pantoprazole 40 mg delayed release oral tablet (20 sources) Proton Pump Inhibitor Start: 01-21-2024 End: 11-04-2024 take 1 tablet by mouth once daily pantoprazole (ProtoNix) 40 MG EC tablet Indications: Gastroesophageal reflux disease, unspecified whether esophagitis present Take 1 tablet (40 mg) by mouth Daily 90 tablet 1 08/06/2024 Active Start: 06-24-2023 take 1 tablet by prakash th in the morning pantoprazole (ProtoNix) 40 MG EC tablet Take 1 tablet by mouth in the morning. 0 06/24/2023 Active PARoxetine hydrochloride 30 mg oral tablet (20 sources) Serotonin Reuptake Inhibitor Start: 08-06-2024 End: 10-21-2024 take 1 tablet by mouth in the morning PARoxetine (Paxil) 30 MG tablet Indications: JORDAN (generalized anxiety disorder) , Mild episode of recurrent major depressive disorder Take 1 tablet (30 mg) by mouth in the morning. 30 tablet 5 09/21/2024 Active Start: 01-21-2024 End: 08-06-2024 take 1 tablet by mouth in the morning PARoxetine (Paxil) 20 MG tablet Indications: Anxiety and depression (CMS/HCC) Take 1 tablet (20 mg) by mouth in the morning. 90 tablet 1 04/22/2024 08/06/2024 Discontinued (Therapy completed) Start: 06-26-2023 End: 07-26-2023 take 1 tablet by mouth in the morning PARoxetine (Paxil) 10 MG tablet Indications: JORDAN (generalized anxiety disorder) (CMS/HCC) Take 1 tablet (10 mg) by mouth in the morning. 30 tablet 3 06/26/2023 07/26/2023 Active potassium chloride 10 meq extended release oral capsule (20 sources) Start: 06-24-2023 End: 09-25-2024 potassium chloride ER (Micro-K) 10 MEQ ER capsule Take 10 mEq by mouth Daily 09/17/2024 Active rivaroxaban 20 mg oral tablet (20 sources) Factor Xa Inhibitor Start: 06-24-2023 take 1 tablet by mouth at mealtime Xarelto 20 MG tablet Take 1 tablet by mouth in the evening. Take with meals 06/24/2023 Active rosuvastatin calcium 5 mg oral tablet (20 sources) HMG-CoA Reductase Inhibitor Start: 01-21-2024 End: 11-04-2024 take 1 tablet by mouth in the evening rosuvastatin (Crestor) 5 MG tablet Indications: Mixed hyperlipidemia Take 1 tablet (5 mg) by mouth in the evening 90 tablet 1 08/06/2024 Active Start: 06-24-2023 take 1 tablet by prakash th in the morning rosuvastatin (Crestor) 5 MG tablet Take 1 tablet by mouth in the morning. 0 06/24/2023 Active spironolactone 25 mg oral tablet (20 sources) Aldosterone Antagonist Start: 03-16-2024 End: 11-04-2024 take 1 tablet by mouth in the morning spironolactone (Aldactone) 25 MG tablet Indications: Primary hypertension , Edema of extremities Take 1 tablet (25 mg) by mouth in the morning and 1 tablet (25 mg) at noon. 180 tablet 1 08/06/2024 Active Start: 01-23-2024 End: 02-25-2024 take 1 [...] tablet 5 11/06/2023 02/17/2024 Discontinued (Therapy completed) 10 actuat tiotropium 0.0025 mg/actuat inhalation spray (20 sources) Anticholinergic Start: 11-06-2023 End: 05-22-2024 take 2 puff(s) by inhalation once daily tiotropium (Spiriva Respimat) 2.5 MCG/ACT inhaler Indications: COPD mixed type (HCC) Inhale 2 puffs Daily 1 each 5 04/22/2024 Active Start: 06-24-2023 take 2 puff(s) by in halation in the morning Spiriva Respimat 2.5 MCG/ACT inhaler Inhale 2 puffs in the morning. 0 06/24/2023 Active Completed/Discontinued Medications Medication Drug Class(es) Dates Sig (Normalized) Sig (Original) doxycycline hyclate 100 mg oral tablet (7 sources) Tetracycline-clas s Drug Start: 04-22-2024 End: [...] after.. 20 tablet 03/18/2024 03/18/2024 Discontinued (Reorder) Problems Active Problems Problem Classification Problem Date Documented Da te Episodic/Chronic Administrative/social admission (2 sources) Patient encounter status; Translations: [Dietary counseling and surveillance] 04-21-2024 Episodic Anxiety disorders (20 sources) Generalized anxiety disorder; Translations: [Generalized anxiety disorder] Onset: 06-26-2023 Resolved: 08-06-2024 06-26-2023 Chronic Cardiac dysrhythmias (20 sources) Paroxysmal atrial fibrillation; Translations: [Atrial fibrillation] Onset: 06-11-2022 07-18-2023 Chronic Chronic obstructive pulmonary disease and bronchiectasis (20 sources) Chronic obstructive pulmonary disease, unspecified; Translations: [Chronic obstructive pulmonary disease with (acute) lower respiratory infection] Onset: 04-19-2022 Chronic Coagulation and hemorrhagic disorders (20 sources) [...] 2 diabetes mellitus without complication] Onset: 06-11-2022 01-21-2024 Chronic Diabetes mellitus without complication (1 source) Hyperglycemia, unspecified; Translations: [Hyperglycemia, unspecified] Onset: 01-16-2024 Episodic Disorders of lipid metabolism (20 [...] [Needs influenza immunization] Onset: 11-27-2021 05-06-2024 Episodic Mood disorders (20 sources) Major depressive disorder, single episode, unspecified; Translations: [Recurrent major depressive episodes, mild ] Onset: 04-19-2022 08-06-2024 Chronic Mood disorders (1 source) Mood disorders; Translations: [DEPRESSION UNSPECIFIED] Onset: 06-11-2022 Mycoses (20 sources) Disorder of inguinal region; Translations: [Other sites of candidiasis] Onset: 10-14-2024 10-14-2024 Episodic Nutritional deficiencies (20 sources) Vitamin D deficiency; Translations: [Vitamin D deficiency, unspecified] Onset: 07-18-2023 07-18-2023 Chronic Osteoporosis (20 sources) Age-related osteoporosis without current pathological fracture; Translations: [Osteoporosis] Onset: 10-02-2022 Chronic Other aftercare (2 sources) [facility] (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; Translations: [[facility] CURRENT USE OF INSULIN] Onset: 06-11-2022 Episodic Other bone disease and musculoskeletal deformities (1 source) Other specified disorders of bone density and structure, unspecified site; Translations: [OTH D/O BONE DEN STRUCT UNS SITE] Onset: 10-08-2022 Episodic Other endocrine disorders (20 sources) Adrenal mass; Translations: [Other specified disorders of adrenal gland] Onset: 05-28-2024 05-28-2024 Chronic Other female genital disorders (2 sources) Disorder of female genital organs; Translations: [Unspecified condition associated with female genital organs and menstrual cycle] Onset: 12-14-2024 12-14-2024 Episodic Other gastrointestinal disorders (2 sources) Adrenal mass 05-28-2024 Episodic Other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 [facility] ([id number]) [address] [place] [address] 46281 Monocytes/100 WBC (Bld) 12.0 % Normal [facility] Comment on above: Performed By: #### Casey LUGO, 08221-0, CMP, 06788-7, 64090-2 #### [facility] ([id number]) [address] [place] [address] 63580 Neutrophils/100 WBC (Bld) 60.4 % Normal [facility] Comment on above: Performed By: #### Casey BCA, 59267-9, CMP, 26829-3, 71576-7 #### [facility] ([id number]) [address] [place] [address] 91714 Platelet mean volume (Bld) [Entitic vol] 9.6 fL Normal 7-12 [facility] Comment on above: Performed By: #### Casey LGUO, 99396-6, CMP, 70447-5, 21535-9 #### [facility] ([id number]) [address] [place] [address] 06196 Platelets (Bld) [#/Vol] 230 10*3/uL Normal 150-450 [facility] Comment on above: Performed By: #### Casey LUGO, 92806-2, CMP, 80660-4, 88706-5 #### [facility] ([id number]) [address] [place] [address] 39550 RBC COUNT 5.09 X10E12/L Normal 3.80-5.20 [facility] Comment on above: Performed By: #### Casey BCA, 81975-3, CMP, 38121-9, 49956-5 #### [facility] ([id number]) [address] [place] [address] 88757 WBC (Bld) [#/Vol] 7.4 10*3/uL Normal 4.0-11.0 [facility] Comment on above: Performed By: #### Casey BCA, 09300-1, CMP, 61084-1, 77371-6 #### [facility] ([id number]) [address] [place] [address] 64699 COMPREHENSIVE METABOLIC PANE Blayne 01-21-2024 Albumin [Mass/Vol] 3.1 g/dL Low 3.2-5.3 [facility] Comment on above: Performed By: #### C BCA, 07920-0, CMP, 53054-7, 98872-4 #### [facility] ([id number]) [address] [place] [address] 23233 ALP [Catalytic activity/Vol] 96 U/L Normal 39-130 [facility] Comment on above: Performed By: #### C BCA, 87468-6, CMP, 60874-2, 09895-1 #### [facility] ([id number]) [address] [place] [address] 14986 ALT [Catalytic activity/Vol] 18 U/L Normal 0-31 [facility] Comment on above: Performed By: #### C BCA, 28858-0, CMP, 74312-1, 95414-4 #### [facility] ([id number]) [address] [place] [address] 45535 Anion gap [Moles/Vol] 7 mmol/L Normal 5-15 [facility] Comment on above: Performed By: #### C BCA, 60035-0, CMP, 23681-5, 06077-2 #### [facility] ([id number]) [address] [place] [address] 29187 AST [Catalytic activity/Vol] 16 U/L Normal 0-41 [facility] Comment on above: Performed By: #### C BCA, 66615-6, CMP, 81585-6, 22755-2 #### [facility] ([id number]) [address] [place] [address] 26396 Bilirubin [Mass/Vol] 0.5 mg/dL Normal 0.3-1.2 [facility] Comment on above: Performed By: #### C BCA, 32382-4, CMP, 15948-0, 39810-8 #### [facility] ([id number]) [address] [place] [address] 12111 Calcium [Mass/Vol] 9.1 mg/dL Normal 8.5-10.5 [facility] Comment on above: Performed By: #### C BCA, 24755-2, CMP, 81788-7, 77863-5 #### [facility] ([id number]) [address] [place] [address] 68673 Chloride [Moles/Vol] 98 mmol/L Normal 98-109 [facility] Comment on above: Performed By: #### C BCA, 93657-6, CMP, 58041-6, 30822-4 #### [facility] ([id number]) [address] [place] [address] 37465 CO2 [Moles/Vol] 33 mmol/L High 22-32 [facility] Comment on above: Performed By: #### C BCA, 23232-7, CMP, 09859-8, 34085-7 #### [facility] ([id number]) [address] [place] [address] 65456 Creatinine [Mass/Vol] 0.45 mg/dL Normal 0.40-1.00 [facility] Comment on above: Result Comment: METH OD TRACEABLE TO IDMS STANDARD Performed By: #### C BCA, 81736-4, CMP, 24531-7, 55597-8 #### [facility] ([id number]) [address] [place] [address] 47062 eGFR (CKD-EPI) NON-RACE DEPENDENT >90 Normal >59 [facility] Comment on above: Result Comment: Reported eGFR is based on the CKD-EPI 2020 equation that does not use a race coefficient. Performed By: #### C BCA, 91191-2, CMP, 35772-6, 16979-2 #### [facility] ([id number]) [address] [place] [address] [place] [address] Glucose [Mass/Vol] 138 mg/dL High 65-99 [facility] Comment on above: Performed By: #### C BCA, 22893-1, CMP, 51537-8, 53240-3 #### [facility] ([id number]) [address] [place] [address] [place] [address] Potassium [Moles/Vol] 3.8 mmol/L Normal 3.5-5.0 [facility] Comment on above: Performed By: #### C BCA, 81614-9, CMP, 51461-0, 64011-9 #### [facility] ([id number]) [address] [place] [address] 81891 Protein [Mass/Vol] 6.6 g/dL Normal 6.0-8.0 [facility] Comment on above: Performed By: #### C BCA, 30044-0, CMP, 76206-7, 30244-6 #### [facility] ([id number]) [address] [place] [address] 17710 Sodium [Moles/Vol] 138 mmol/L Normal 134-146 [facility] Comment on above: Performed By: #### Casey BCA, 34078-1, CMP, 33721-2, 31005-7 #### [facility] ([id number]) [address] [place] [address] [place] [address] Urea nitrogen [Mass/Vol] 18 mg/dL Normal 5-27 [facility] Comment on above: Performed By: #### C BCA, 33429-5, CMP, 96969-1, 57462-9 #### [facility] ([id number]) [address] [place] [address] [place] [address] Glucose Glucometer (BldC) [M ass/Vol]on 01-21-2024 Glucose [Mass/Vol] 312 mg/dL High 65-99 [facility] Glucose [Mass/Vol] 285 mg/dL High 65-99 [facility] Glucose [Mass/Vol] 178 mg/dL High 65-99 [facility] MAGNESIUMon 01-21-2024 Magnesium [Mass/Vol] 2.2 mg/dL Normal 1.8-2.6 [facility] Comment on above: Performed By: #### Casey LUGO, 88861-3, CMP, , 23306-8 #### [facility] ([id number]) [address] [place] [address] 25404 POTASSIUMon 01-21-2024 Potassium [Moles/Vol] 4.4 mmol/L Normal 3.5-5.0 [facility] Comment on above: Performed By: #### Casey LUGO, 28748-8, CMP, , 49606-5 #### [facility] ([id number]) [address] [place] [address] 82361 CBC AND AUTO DIFFon 01-20-20 24 ABSOLUTE BASOPHIL 0.0 X10E9/L Normal 0.0-0.2 [facility] Comment on above: Performed By: #### Casey LUGO, 15237-9, CMP, 00199-4, 18749-2 #### [facility] ([id number]) [address] [place] [address] 86268 ABSOLUTE NEUTROPHIL 6.3 X10E9/L Normal 1.5-6.6 [facility] Comment on above: Performed By: #### Casey LUGO, 65034-4, CMP, 32688-7, 27245-9 #### [facility] ([id number]) [address] [place] [address] 90123 Basophils/100 WBC (Bld) 0.5 % Normal [facility] Comment on above: Performed By: #### Casey LUGO, 60484-6, CMP, 20122-6, 74051-4 #### [facility] ([id number]) [address] [place] [address] 11840 Eosinophils (Bld) [#/Vol] 0.1 10*3/uL Normal 0.0-0.4 [facility] Comment on above: Performed By: #### Casey LUGO, 82781-0, CMP, 32771-8, 55799-3 #### [facility] ([id number]) [address] [place] [address] 32059 Eosinophils/100 WBC (Bld) 1.3 % Normal [facility] Comment on above: Performed By: #### Casey LUGO, 27471-1, CMP, 94904-5, 95122-6 #### [facility] ([id number]) [address] [place] [address] 71112 Erythrocyte distribution width (RBC) [Ratio] 13.6 % Normal 11.5-15.0 [facility] Comment on above: Performed By: #### Casey LUGO, 94727-5, CMP, 32080-8, 87938-9 #### [facility] ([id number]) [address] [place] [address] 98381 Hematocrit (Bld) [Volume fraction] 47.5 % High 35-47 [facility] Comment on above: Performed By: #### Casey LUGO, 06015-1, CMP, 93597-7, 96745-1 #### [facility] ([id number]) [address] [place] [address] 56267 Hemoglobin (Bld) [Mass/Vol] 16.1 g/dL High 11.7-15.5 [facility] Comment on above: Performed By: #### Casey LUGO, 43248-9, CMP, 34526-2, 75931-6 #### [facility] ([id number]) [address] [place] [address] 42474 Lymphocytes (Bld) [#/Vol] 1.8 10*3/uL Normal 1.0-3.5 [facility] Comment on above: Performed By: #### Casey LUGO, 73697-7, CMP, 14719-9, 35968-9 #### [facility] ([id number]) [address] [place] [address] 01570 Lymphocytes/100 WBC (Bld) 19.8 % Normal [facility] Comment on above: Performed By: #### Casey LUGO, 11360-1, CMP, 64523-0, 53490-8 #### [facility] ([id number]) [address] [place] [address] 34676 MCH (RBC) [Entitic mass] 32.2 pg Normal 27-34 [facility] Comment on above: Performed By: #### Casey LUGO, 47412-5, CMP, , 21429-6 #### [facility] ([id number]) [address] [place] [address] 44274 MCHC (RBC) [Mass/Vol] 33.8 g/dL Normal 32-36 [facility] Comment on above: Performed By: #### Casey LUGO, 81242-4, CMP, , 95291-5 #### [facility] ([id number]) [address] [place] [address] 97110 MCV (RBC) [Entitic vol] 95 fL Normal 80-100 [facility] Comment on above: Performed By: #### Casey LUGO, 43187-7, CMP, , 12534-4 #### [facility] ([id number]) [address] [place] [address] 57210 Monocytes (Bld) [#/Vol] 0.9 10*3/uL Normal 0-0.9 [facility] Comment on above: Performed By: #### Casey LUGO, 55230-0, CMP, 77391-0, 16240-5 #### [facility] ([id number]) [address] [place] [address] 34437 Monocytes/100 WBC (Bld) 9.3 % Normal [facility] Comment on above: Performed By: #### Casey LUGO, 63322-5, CMP, 65110-7, 67466-8 #### [facility] ([id number]) [address] [place] [address] 13258 Neutrophils/100 WBC (Bld) 69.1 % Normal [facility] Comment on above: Performed By: #### Casey LUGO, 42488-6, CMP, 35593-2, 24726-1 #### [facility] ([id number]) [address] [place] [address] 88847 Platelet mean volume (Bld) [Entitic vol] 9.3 fL Normal 7-12 [facility] Comment on above: Performed By: #### Casey LUGO, 75453-1, CMP, 48447-8, 83230-0 #### [facility] ([id number]) [address] [place] [address] 78425 Platelets (Bld) [#/Vol] 213 10*3/uL Normal 150-450 [facility] Comment on above: Performed By: #### Casey LUGO, 42670-7, CMP, 75281-8, 14202-4 #### [facility] ([id number]) [address] [place] [address] 45995 RBC COUNT 4.99 X10E12/L Normal 3.80-5.20 [facility] Comment on above: Performed By: #### Casey LUGO, 29508-9, CMP, 39111-8, 70770-2 #### [facility] ([id number]) [address] [place] [address] WBC (Bld) [#/Vol] 9.2 10*3/uL Normal 4.0-11.0 [facility] Comment on above: Performed By: #### C BCA, 29307-3, CMP, 43670-7, 93666-6 #### [facility] ([id number]) [address] [place] [address] 61225 COMPREHENSIVE METABOLIC PANE Blayne 01-20-2024 Albumin [Mass/Vol] 3.1 g/dL Low 3.2-5.3 [facility] Comment on above: Performed By: #### C BCA, 74508-3, CMP, 27328-5, 99773-6 #### [facility] ([id number]) [address] [place] [address] 37450 ALP [Catalytic activity/Vol] 96 U/L Normal 39-130 [facility] Comment on above: Performed By: #### C BCA, 98214-6, CMP, 16947-2, 66642-8 #### [facility] ([id number]) [address] [place] [address] 55679 ALT [Catalytic activity/Vol] 19 U/L Normal 0-31 [facility] Comment on above: Performed By: #### C BCA, 07378-6, CMP, 90737-9, 10316-9 #### [facility] ([id number]) [address] [place] [address] [place] [address] Anion gap [Moles/Vol] 9 mmol/L Normal 5-15 [facility] Comment on above: Performed By: #### C BCA, 99262-2, CMP, 03546-2, 35957-6 #### [facility] ([id number]) [address] [place] [address] [place] [address] AST [Catalytic activity/Vol] 17 U/L Normal 0-41 [facility] Comment on above: Performed By: #### C BCA, 85848-8, CMP, 84473-4, 80810-7 #### [facility] ([id number]) [address] [place] [address] 26068 Bilirubin [Mass/Vol] 0.5 mg/dL Normal 0.3-1.2 [facility] Comment on above: Performed By: #### C BCA, 93489-2, CMP, 52844-8, 18649-3 #### [facility] ([id number]) [address] [place] [address] 52205 Calcium [Mass/Vol] 8.8 mg/dL Normal 8.5-10.5 [facility] Comment on above: Performed By: #### C BCA, 91154-6, CMP, 69140-4, 97707-7 #### [facility] ([id number]) [address] [place] [address] 96418 Chloride [Moles/Vol] 98 mmol/L Normal 98-109 [facility] Comment on above: Performed By: #### C BCA, 10900-6, CMP, 38041-3, 76267-6 #### [facility] ([id number]) [address] [place] [address] 19326 CO2 [Moles/Vol] 30 mmol/L Normal 22-32 [facility] Comment on above: Performed By: #### C BCA, 96737-0, CMP, 56436-0, 06923-1 #### [facility] ([id number]) [address] [place] [address] 70068 Creatinine [Mass/Vol] 0.50 mg/dL Normal 0.40-1.00 [facility] Comment on above: Result Comment: METH OD TRACEABLE TO IDMS STANDARD Performed By: #### C BCA, 36966-0, CMP, 93810-6, 20353-1 #### [facility] ([id number]) [address] [place] [address], [place] [address] eGFR (CKD-EPI) NON-RACE DEPENDENT >90 Normal >59 [facility] Comment on above: Result Comment: Reported eGFR is based on the CKD-EPI 2020 equation that does not use a race coefficient. Performed By: #### C BCA, 76017-0, CMP, 80498-5, 24161-0 #### [facility] ([id number]) [address] [place] [address] 18850 Glucose [Mass/Vol] 282 mg/dL High 65-99 [facility] Comment on above: Performed By: #### C BCA, 15369-5, CMP, 08152-0, 55402-2 #### [facility] ([id number]) [address] [place] [address] 42849 Potassium [Moles/Vol] 4.2 mmol/L Normal 3.5-5.0 [facility] Comment on above: Performed By: #### C BCA, 98980-6, CMP, , 41542-9 #### [facility] ([id number]) [address] [place] [address] 89248 Protein [Mass/Vol] 6.2 g/dL Normal 6.0-8.0 [facility] Comment on above: Performed By: #### C BCA, 07056-3, CMP, , 46216-3 #### [facility] ([id number]) [address] [place] [address] 04292 Sodium [Moles/Vol] 137 mmol/L Normal 134-146 [facility] Comment on above: Performed By: #### C BCA, 99433-4, CMP, 47701-3, 31506-5 #### [facility] ([id number]) [address] [place] [address] 81567 Urea nitrogen [Mass/Vol] 18 mg/dL Normal 5-27 [facility] Comment on above: Performed By: #### C BRITTNEY, 24384-3, CMP, 30137-6, 19895-7 #### [facility] ([id number]) [address] [place] [address] 01450 Glucose Glucometer (BldC) [M ass/Vol]on 01-20-2024 Glucose [Mass/Vol] 277 mg/dL High 65-99 [facility] Glucose [Mass/Vol] 174 mg/dL High 65-99 [facility] Glucose [Mass/Vol] 324 mg/dL High 65-99 [facility] Glucose [Mass/Vol] 172 mg/dL High 65-99 [facility] MAGNESIUMon 01-20-2024 Magnesium [Mass/Vol] 2.0 mg/dL Normal 1.8-2.6 [facility] Comment on above: Performed By: #### Casey LUGO, 92792-9, CMP, , 63744-2 #### [facility] ([id number]) [address] [place] [address] 90452 CBC AND AUTO DIFFon 01-19-20 24 ABSOLUTE BASOPHIL 0.0 X10E9/L Normal 0.0-0.2 [facility] Comment on above: Performed By: #### Casey LUGO, 34263-6, CMP, 12618-9, 48025-3 #### [facility] ([id number]) [address] [place] [address] [place] [address] ABSOLUTE NEUTROPHIL 7.7 X10E9/L High 1.5-6.6 [facility] Comment on above: Performed By: #### Casey LUGO, 79589-8, CMP, 65011-8, 26175-0 #### [facility] ([id number]) [address] [place] [address]3267 Basophils/100 WBC (Bld) 0.4 % Normal [facility] Comment on above: Performed By: #### Casey LUGO, 31026-3, CMP, 84754-9, 29666-1 #### [facility] ([id number]) [address] [place] [address] Eosinophils (Bld) [#/Vol] 0.2 10*3/uL Normal 0.0-0.4 [facility] Comment on above: Performed By: #### Casey LUGO, 43413-9, CMP, 45226-3, 98646-7 #### [facility] ([id number]) [address] [place] [address]65 Eosinophils/100 WBC (Bld) 1.7 % Normal [facility] Comment on above: Performed By: #### Casey LUGO, 99813-2, CMP, 45404-5, 51222-2 #### [facility] ([id number]) [address] [place] [address] Erythrocyte distribution width (RBC) [Ratio] 13.7 % Normal 11.5-15.0 [facility] Comment on above: Performed By: #### Casey LUGO, 77370-7, CMP, 28684-2, 76132-0 #### [facility] ([id number]) [address] [place] [address] 20792 Hematocrit (Bld) [Volume fraction] 48.3 % High 35-47 [facility] Comment on above: Performed By: #### Casey LUGO, 49189-4, CMP, 28839-4, 83822-4 #### [facility] ([id number]) [address] [place] [address] 85246 Hemoglobin (Bld) [Mass/Vol] 15.9 g/dL High 11.7-15.5 [facility] Comment on above: Performed By: #### Casey LUGO, 76370-7, CMP, 35102-1, 92977-3 #### [facility] ([id number]) [address] [place] [address] 77140 Lymphocytes (Bld) [#/Vol] 2.2 10*3/uL Normal 1.0-3.5 [facility] Comment on above: Performed By: #### Casey LUGO, 06551-2, CMP, 51310-8, 65174-4 #### [facility] ([id number]) [address] [place] [address] 19152 Lymphocytes/100 WBC (Bld) 20.2 % Normal [facility] Comment on above: Performed By: #### Casey LUGO, 71141-0, CMP, 17417-8, 60793-5 #### [facility] ([id number]) [address] [place] [address] 63448 MCH (RBC) [Entitic mass] 31.1 pg Normal 27-34 [facility] Comment on above: Performed By: #### Casey LUGO, 34459-7, [facility], , 89967-6 #### [facility] ([id number]) [address] [place] [address] 46847 MCHC (RBC) [Mass/Vol] 32.9 g/dL Normal 32-36 [facility] Comment on above: Performed By: #### Casey LUGO, 97900-5, CMP, 13894-4, 46646-3 #### [facility] ([id number]) [address] [place] [address] 45425 MCV (RBC) [Entitic vol] 95 fL Normal 80-100 [facility] Comment on above: Performed By: #### Casey LUGO, 41741-6, CMP, , 27720-0 #### [facility] ([id number]) [address] [place] [address] 48426 Monocytes (Bld) [#/Vol] 0.9 10*3/uL Normal 0-0.9 [facility] Comment on above: Performed By: #### Casey LUGO, 03560-6, CMP, 79207-8, 58333-5 #### [facility] ([id number]) [address] [place] [address] 62849 Monocytes/100 WBC (Bld) 8.1 % Normal [facility] Comment on above: Performed By: #### Casey LUGO, 46788-7, CMP, 73253-8, 86913-6 #### [facility] ([id number]) [address] [place] [address] 82976 Neutrophils/100 WBC (Bld) 69.6 % Normal [facility] Comment on above: Performed By: #### Casey LUGO, 30061-8, CMP, 69793-7, 83650-8 #### [facility] ([id number]) [address] [place] [address] 95681 Platelet mean volume (Bld) [Entitic vol] 9.9 fL Normal 7-12 [facility] Comment on above: Performed By: #### Casey LUGO, 30954-7, CMP, 01013-3, 45621-9 #### [facility] ([id number]) [address] [place] [address] 44237 Platelets (Bld) [#/Vol] 219 10*3/uL Normal 150-450 [facility] Comment on above: Performed By: #### Casey LUGO, 73146-6, CMP, 04394-1, 61390-8 #### [facility] ([id number]) [address] [place] [address] 39437 RBC COUNT 5.11 X10E12/L Normal 3.80-5.20 [facility] Comment on above: Performed By: #### Casey LUGO, 00742-4, CMP, 44207-2, 76775-4 #### [facility] ([id number]) [address] [place] [address] 72533 WBC (Bld) [#/Vol] 11.0 10*3/uL Normal 4.0-11.0 [facility] Comment on above: Performed By: #### C BCA, 25836-9, CMP, 14201-7, 62076-1 #### [facility] ([id number]) [address] [place] [address] 92512 COMPREHENSIVE METABOLIC PANE Blayne 01-19-2024 Albumin [Mass/Vol] 2.9 g/dL Low 3.2-5.3 [facility] Comment on above: Performed By: #### C BCA, 18410-9, CMP, 66087-4, 92423-2 #### [facility] ([id number]) [address] [place] [address] 74166 ALP [Catalytic activity/Vol] 112 U/L Normal 39-130 [facility] Comment on above: Performed By: #### C BCA, 51532-6, CMP, 45128-2, 47260-8 #### [facility] ([id number]) [address] [place] [address] 51851 ALT [Catalytic activity/Vol] 21 U/L Normal 0-31 [facility] Comment on above: Performed By: #### C BCA, 74605-2, CMP, 13762-4, 07438-0 #### [facility] ([id number]) [address] [place] [address] [place] [address] Anion gap [Moles/Vol] 9 mmol/L Normal 5-15 [facility] Comment on above: Performed By: #### C BCA, 44546-1, CMP, 43258-3, 10859-9 #### [facility] ([id number]) [address] [place] [address] 04651 AST [Catalytic activity/Vol] 16 U/L Normal 0-41 [facility] Comment on above: Performed By: #### C BCA, 29462-1, CMP, 84968-6, 65582-4 #### [facility] ([id number]) [address] [place] [address] 25417 Bilirubin [Mass/Vol] 0.5 mg/dL Normal 0.3-1.2 [facility] Comment on above: Performed By: #### C BCA, 78748-2, CMP, 12061-1, 69656-3 #### [facility] ([id number]) [address] [place] [address] 17185 Calcium [Mass/Vol] 8.9 mg/dL Normal 8.5-10.5 [facility] Comment on above: Performed By: #### C BCA, 43569-2, CMP, 40574-8, 45417-1 #### [facility] ([id number]) [address] [place] [address] 00125 Chloride [Moles/Vol] 98 mmol/L Normal 98-109 [facility] Comment on above: Performed By: #### C BCA, 21057-5, CMP, 71086-5, 82778-0 #### [facility] ([id number]) [address] [place] [address] 28923 CO2 [Moles/Vol] 29 mmol/L Normal 22-32 [facility] Comment on above: Performed By: #### C BCA, 70248-2, CMP, 31979-4, 99338-5 #### [facility] ([id number]) [address] [place] [address] 93156 Creatinine [Mass/Vol] 0.46 mg/dL Normal 0.40-1.00 [facility] Comment on above: Result Comment: METH OD TRACEABLE TO IDMS STANDARD Performed By: #### C BCA, 39570-4, CMP, 77560-1, 72865-5 #### [facility] ([id number]) [address] [place] [address] 45420 eGFR (CKD-EPI) NON-RACE DEPENDENT >90 Normal >59 [facility] Comment on above: Result Comment: Reported eGFR is based on the CKD-EPI 2020 equation that does not use a race coefficient. Performed By: #### C BCA, 09074-4, CMP, 60656-5, 62293-0 #### [facility] ([id number]) [address] [place] [address] 64190 Glucose [Mass/Vol] 168 mg/dL High 65-99 [facility] Comment on above: Performed By: #### C BCA, 30234-2, CMP, 18677-8, 59070-8 #### [facility] ([id number]) [address] [place] [address] 89911 Potassium [Moles/Vol] 3.7 mmol/L Normal 3.5-5.0 [facility] Comment on above: Performed By: #### C BCA, 07929-6, CMP, 14846-2, 37192-2 #### [facility] ([id number]) [address] [place] [address] 72561 Protein [Mass/Vol] 6.2 g/dL Normal 6.0-8.0 [facility] Comment on above: Performed By: #### C BCA, 13535-9, CMP, , 24112-5 #### [facility] ([id number]) [address] [place] [address] 88220 Sodium [Moles/Vol] 136 mmol/L Normal 134-146 [facility] Comment on above: Performed By: #### C BCA, 47940-2, CMP, 53248-5, 00235-2 #### [facility] ([id number]) [address] [place] [address] 91250 Urea nitrogen [Mass/Vol] 19 mg/dL Normal 5-27 [facility] Comment on above: Performed By: #### C BRITTNEY, 89161-2, CMP, 43574-7, 29662-1 #### [facility] ([id number]) [address] [place] [address] 81321 Glucose Glucometer (BldC) [M ass/Vol]on 01-19-2024 Glucose [Mass/Vol] 241 mg/dL High 65-99 [facility] Glucose [Mass/Vol] 203 mg/dL High 65-99 [facility] Glucose [Mass/Vol] 237 mg/dL High 65-99 [facility] MAGNESIUMon 01-19-2024 Magnesium [Mass/Vol] 2.0 mg/dL Normal 1.8-2.6 [facility] Comment on above: Performed By: #### Casey LUGO, 26476-9, CMP, 78655-6, 93899-5 #### [facility] ([id number]) [address] [place] [address] 65960 POTASSIUMon 01-19-2024 Potassium [Moles/Vol] 4.4 mmol/L Normal 3.5-5.0 [facility] Comment on above: Performed By: #### Casey LUGO, 08832-0, CMP, 54296-7, 70451-4 #### [facility] ([id number]) [address] [place] [address] 86815 URINALYSISon 01-19-2024 Bilirubin Ql (U) Negative Normal NEG [facility] Comment on above: Performed By: #### Casey LUGO, 38925-7, CMP, 38386-7, 08171-3 #### [facility] ([id number]) [address] [place] [address] 94712 BLOOD/HGB SMALL Abnormal NEG [facility] Comment on above: Performed By: #### Casey LUGO, 01596-1, CMP, 22128-2, 33200-0 #### [facility] ([id number]) [address] [place] [address] [place] [address] Color (U) YELLOW Normal YELLOW [facility] Comment on above: Performed By: #### C BRITTNEY, 81458-0, CMP, 00600-4, 65427-6 #### [facility] ([id number]) [address] [place] [address] 01676 Glucose Ql (U) >1000 Abnormal NEG [facility] Comment on above: Performed By: #### C BRITTNEY, 92773-4, CMP, 63592-7, 77388-9 #### [facility] ([id number]) [address] [place] [address] 09928 Ketones Ql (U) Negative Normal NEG [facility] Comment on above: Performed By: #### Casey LUGO, 55467-5, CMP, 95621-4, 14940-4 #### [facility] ([id number]) [address] [place] [address] 95479 Leukocyte esterase Test strip Ql (U) MODERATE Abnormal NEG [facility] Comment on above: Result Comment: HIGH CONCENTRATIONS OF GLUCOSE MAY DECREASE THE REACTIVITY OF THE DIPSTICK LEUKOCYTE TEST PAD. Performed By: #### Casey LUGO, 39727-7, CMP, 07692-5, 48089-3 #### [facility] ([id number]) [address] [place] [address] 81528 Nitrite Ql (U) Negative Normal NEG [facility] Comment on above: Performed By: #### C BRITTNEY, 92841-3, CMP, 10848-7, 97592-6 #### [facility] ([id number]) [address] [place] [address] 06272 pH (U) 6.5 [pH] Normal 5.0-8.5 [facility] Comment on above: Performed By: #### Casey LUGO, 14684-9, CMP, 12355-3, 66282-1 #### [facility] ([id number]) [address] [place] [address] 03821 Protein Ql (U) Negative Normal NEG [facility] Comment on above: Performed By: #### Casey LUGO, 22540-9, CMP, 17001-9, 26639-1 #### [facility] ([id number]) [address] [place] [address] 61267 R.B.CELLS 10 /hpf High 0-5 [facility] Comment on above: Performed By: #### Casey LUGO, 46802-1, CMP, 41288-1, 59219-4 #### [facility] ([id number]) [address] [place] [address] 67952 Specific gravity (U) [Rel density] 1.010 Normal 1.003-1.035 [facility] Comment on above: Performed By: #### Casey LUGO, 02643-1, CMP, 45212-2, 26750-8 #### [facility] ([id number]) [address] [place] [address] 32948 SQUAMOUS EPITHELIUM 4 /hpf Normal 0-5 [facility] Comment on above: Performed By: #### Casey LUGO, 79476-6, CMP, 66362-6, 35137-0 #### [facility] ([id number]) [address] [place] [address] 60083 TRANSITIONAL EPITH 1 /hpf High 0 [facility] Comment on above: Performed By: #### Casey LUGO, 24391-1, CMP, 93829-8, 70013-3 #### [facility] ([id number]) [address] [place] [address] [place] [address] TURBIDITY CLOUDY Abnormal CLEAR [facility] Comment on above: Performed By: #### Casey LUGO, 04577-8, CMP, 01282-5, 68014-5 #### [facility] ([id number]) [address] [place] [address] 25112 Urobilinogen Qn (U) 0.2 {Beau'U}/dL Normal <1.1 [facility] Comment on above: Performed By: #### Casey LUGO, 68337-3, CMP, 67091-5, 09458-4 #### [facility] ([id number]) [address] [place] [address] 88906 W.B.CELLS >100 High 0-5 [facility] Comment on above: Performed By: #### Casey LUGO, 74354-5, CMP, 17246-2, 06421-7 #### [facility] ([id number]) [address] [place] [address] 68222 URINE CULTUREon 01-19-2024 Bacteria identified Cx Nom (U) CULTURE RESULTS 50-100,000 ORGANISMS/ML NORMAL UROGENITAL AMILCAR Normal [facility] Comment on above: Performed By: #### Casey LUGO, 49131-6, CMP, 82455-5, 41722-0 #### [facility] ([id number]) [address] [place] [address] 04779 CBC AND AUTO DIFFon 01-18-20 24 ABSOLUTE BASOPHIL 0.0 X10E9/L Normal 0.0-0.2 [facility] Comment on above: Performed By: #### Casey LUGO, 33660-3, CMP, 25199-5, 17862-5 #### [facility] ([id number]) [address] [place] [address] 31363 ABSOLUTE NEUTROPHIL 8.3 X10E9/L High 1.5-6.6 [facility] Comment on above: Performed By: #### Casey LUGO, 29555-6, CMP, 80826-8, 24842-6 #### [facility] ([id number]) [address] [place] [address] 47221 Basophils/100 WBC (Bld) 0.3 % Normal [facility] Comment on above: Performed By: #### Casey LUGO, 22472-7, CMP, 55662-9, 20271-3 #### [facility] ([id number]) [address] [place] [address] 02258 Eosinophils (Bld) [#/Vol] 0.3 10*3/uL Normal 0.0-0.4 [facility] Comment on above: Performed By: #### Casey LUGO, 28960-7, CMP, 12096-8, 58260-6 #### [facility] ([id number]) [address] [place] [address] 26147 Eosinophils/100 WBC (Bld) 2.1 % Normal [facility] Comment on above: Performed By: #### Casey LUGO, 77759-4, CMP, , 72497-0 #### [facility] ([id number]) [address] [place] [address] 06364 Erythrocyte distribution width (RBC) [Ratio] 13.6 % Normal 11.5-15.0 [facility] Comment on above: Performed By: #### Casey LUGO, 18151-8, CMP, 14696-5, 45642-6 #### [facility] ([id number]) [address] [place] [address] 50941 Hematocrit (Bld) [Volume fraction] 54.5 % High 35-47 [facility] Comment on above: Performed By: #### Casey LUGO, 58833-1, CMP, 11944-8, 22043-8 #### [facility] ([id number]) [address] [place] [address] 52285 Hemoglobin (Bld) [Mass/Vol] 18.1 g/dL High 11.7-15.5 [facility] Comment on above: Performed By: #### Casey LUGO, 75633-2, CMP, , 66121-5 #### [facility] ([id number]) [address] [place] [address] 12632 Lymphocytes (Bld) [#/Vol] 2.4 10*3/uL Normal 1.0-3.5 [facility] Comment on above: Performed By: #### Casey LUGO, 69635-9, CMP, 51820-4, 91898-7 #### [facility] ([id number]) [address] [place] [address] 91545 Lymphocytes/100 WBC (Bld) 20.1 % Normal [facility] Comment on above: Performed By: #### Casey LUGO, 72183-0, CMP, 52254-2, 99317-3 #### [facility] ([id number]) [address] [place] [address] 05300 MCH (RBC) [Entitic mass] 31.3 pg Normal 27-34 [facility] Comment on above: Performed By: #### Casey LUGO, 12518-5, CMP, 76396-9, 62998-9 #### [facility] ([id number]) [address] [place] [address] 51441 MCHC (RBC) [Mass/Vol] 33.2 g/dL Normal 32-36 [facility] Comment on above: Performed By: #### Casey LUGO, 26206-8, CMP, 06422-0, 82328-7 #### [facility] ([id number]) [address] [place] [address] 75907 MCV (RBC) [Entitic vol] 94 fL Normal 80-100 [facility] Comment on above: Performed By: #### Casey LUGO, 25682-0, CMP, 83132-5, 94049-0 #### [facility] ([id number]) [address] [place] [address] 40915 Monocytes (Bld) [#/Vol] 0.8 10*3/uL Normal 0-0.9 [facility] Comment on above: Performed By: #### Casey LUGO, 13565-4, CMP, 36563-1, 05346-9 #### [facility] ([id number]) [address] [place] [address] 52226 Monocytes/100 WBC (Bld) 7.1 % Normal [facility] Comment on above: Performed By: #### Casey LUGO, 24827-7, CMP, 32785-8, 57399-5 #### [facility] ([id number]) [address] [place] [address] 32248 Neutrophils/100 WBC (Bld) 70.4 % Normal [facility] Comment on above: Performed By: #### Casey LUGO, 70804-2, CMP, 45681-0, 07874-5 #### [facility] ([id number]) [address] [place] [address] 12700 Platelet mean volume (Bld) [Entitic vol] 10.1 fL Normal 7-12 [facility] Comment on above: Performed By: #### Casey LUGO, 61400-7, CMP, 71000-3, 62377-1 #### [facility] ([id number]) [address] [place] [address] 51593 Platelets (Bld) [#/Vol] 279 10*3/uL Normal 150-450 [facility] Comment on above: Performed By: #### Casey LUGO, 47057-7, CMP, 83318-3, 25710-7 #### [facility] ([id number]) [address] [place] [address] 32626 RBC COUNT 5.78 X10E12/L High 3.80-5.20 [facility] Comment on above: Performed By: #### Casey BCA, 05870-5, CMP, 41206-9, 39725-2 #### [facility] ([id number]) [address] [place] [address] 35904 WBC (Bld) [#/Vol] 11.8 10*3/uL High 4.0-11.0 [facility] Comment on above: Performed By: #### C BCA, 11272-3, CMP, 70575-3, 81964-7 #### [facility] ([id number]) [address] [place] [address] 93007 COMPREHENSIVE METABOLIC PANE Blayne 01-18-2024 Albumin [Mass/Vol] 3.5 g/dL Normal 3.2-5.3 [facility] Comment on above: Performed By: #### C BCA, 43501-2, CMP, 78498-7, 75322-6 #### [facility] ([id number]) [address] [place] [address] 05696 ALP [Catalytic activity/Vol] 115 U/L Normal 39-130 [facility] Comment on above: Performed By: #### C BCA, 37469-4, CMP, 36912-0, 26700-6 #### [facility] ([id number]) [address] [place] [address] 04812 ALT [Catalytic activity/Vol] 25 U/L Normal 0-31 [facility] Comment on above: Performed By: #### C BCA, 40223-5, CMP, 06292-5, 00506-3 #### [facility] ([id number]) [address] [place] [address] 61351 Anion gap [Moles/Vol] 8 mmol/L Normal 5-15 [facility] Comment on above: Performed By: #### C BCA, 03312-3, CMP, 36220-6, 67606-2 #### [facility] ([id number]) [address] [place] [address] 35565 AST [Catalytic activity/Vol] 23 U/L Normal 0-41 [facility] Comment on above: Performed By: #### C BCA, 51287-2, CMP, 05048-3, 81429-3 #### [facility] ([id number]) [address] [place] [address] 35635 Bilirubin [Mass/Vol] 0.7 mg/dL Normal 0.3-1.2 [facility] Comment on above: Performed By: #### C BCA, 45421-4, CMP, 02067-0, 39300-1 #### [facility] ([id number]) [address] [place] [address] 57145 Calcium [Mass/Vol] 9.2 mg/dL Normal 8.5-10.5 [facility] Comment on above: Performed By: #### Casey BCA, 93274-7, CMP, 02859-7, 70349-7 #### [facility] ([id number]) [address] [place] [address] 58423 Chloride [Moles/Vol] 98 mmol/L Normal 98-109 [facility] Comment on above: Performed By: #### C BCA, 16337-9, CMP, 26311-4, 35777-9 #### [facility] ([id number]) [address] [place] [address] 75513 CO2 [Moles/Vol] 32 mmol/L Normal 22-32 [facility] Comment on above: Performed By: #### C BCA, 57407-6, CMP, 43529-8, 98073-0 #### [facility] ([id number]) [address] [place] [address] 89488 Creatinine [Mass/Vol] 0.56 mg/dL Normal 0.40-1.00 [facility] Comment on above: Result Comment: METH OD TRACEABLE TO IDMS STANDARD Performed By: #### C BCA, 83025-0, CMP, 97047-0, 80776-6 #### [facility] ([id number]) [address] [place] [address] 33779 eGFR (CKD-EPI) NON-RACE DEPENDENT >90 Normal >59 [facility] Comment on above: Result Comment: Reported eGFR is based on the CKD-EPI 2020 equation that does not use a race coefficient. Performed By: #### C BCA, 53537-6, CMP, 90080-0, 16382-6 #### [facility] ([id number]) [address] [place] [address] 41088 Glucose [Mass/Vol] 113 mg/dL High 65-99 [facility] Comment on above: Performed By: #### C BCA, 16306-5, CMP, 33443-2, 88679-7 #### [facility] ([id number]) [address] [place] [address] 79998 Potassium [Moles/Vol] 3.4 mmol/L Low 3.5-5.0 [facility] Comment on above: Performed By: #### C BCA, 56691-9, CMP, 67476-1, 81461-2 #### [facility] ([id number]) [address] [place] [address] 31994 Protein [Mass/Vol] 7.2 g/dL Normal 6.0-8.0 [facility] Comment on above: Performed By: #### C BCA, 99423-5, CMP, 87798-8, 35109-8 #### [facility] ([id number]) [address] [place] [address] 53801 Sodium [Moles/Vol] 138 mmol/L Normal 134-146 [facility] Comment on above: Performed By: #### C BCA, 65464-3, CMP, 31725-6, 06598-3 #### [facility] ([id number]) [address] [place] [address] 29996 Urea nitrogen [Mass/Vol] 14 mg/dL Normal 5-27 [facility] Comment on above: Performed By: #### C BCA, 75915-1, CMP, 76772-2, 61396-8 #### [facility] ([id number]) [address] [place] [address] 29288 Glucose Glucometer (BldC) [M ass/Vol]on 01-18-2024 Glucose [Mass/Vol] 256 mg/dL High 65-99 [facility] Glucose [Mass/Vol] 235 mg/dL High 65-99 [facility] Glucose [Mass/Vol] 302 mg/dL High 65-99 [facility] Glucose [Mass/Vol] 108 mg/dL High 65-99 [facility] MAGNESIUMon 01-18-2024 Magnesium [Mass/Vol] 2.1 mg/dL Normal 1.8-2.6 [facility] Comment on above: Performed By: #### C BCA, 14497-6, CMP, 79518-7, 91735-8 #### [facility] ([id number]) [address] [place] [address] 42240 POTASSIUMon 01-18-2024 Potassium [Moles/Vol] 4.7 mmol/L Normal 3.5-5.0 [facility] Comment on above: Performed By: #### C BCA, 54376-0, CMP, , 68631-8 #### [facility] ([id number]) [address] [place] [address] 78159 CBC AND AUTO DIFFon 01-17-20 24 ABSOLUTE BASOPHIL 0.0 X10E9/L Normal 0.0-0.2 [facility] Comment on above: Performed By: #### C BCA, 68049-0, CMP, 85306-9, 05472-2 #### [facility] ([id number]) [address] [place] [address] 59200 ABSOLUTE NEUTROPHIL 6.1 X10E9/L Normal 1.5-6.6 [facility] Comment on above: Performed By: #### C BCA, 32772-1, CMP, 87275-8, 84511-3 #### [facility] ([id number]) [address] [place] [address] 37676 Basophils/100 WBC (Bld) 0.4 % Normal [facility] Comment on above: Performed By: #### C BRITTNEY, 36162-0, CMP, 19344-5, 62767-4 #### [facility] ([id number]) [address] [place] [address] 52845 Eosinophils (Bld) [#/Vol] 0.3 10*3/uL Normal 0.0-0.4 [facility] Comment on above: Performed By: #### Casey LUGO, 16771-7, CMP, 91177-1, 45338-4 #### [facility] ([id number]) [address] [place] [address] 21113 Eosinophils/100 WBC (Bld) 2.7 % Normal [facility] Comment on above: Performed By: #### C BRITTNEY, 12595-3, CMP, 33775-8, 35558-9 #### [facility] ([id number]) [address] [place] [address] 10415 Erythrocyte distribution width (RBC) [Ratio] 13.6 % Normal 11.5-15.0 [facility] Comment on above: Performed By: #### C BCA, 37254-6, CMP, 52345-8, 94266-6 #### [facility] ([id number]) [address] [place] [address] 12853 Hematocrit (Bld) [Volume fraction] 50.3 % High 35-47 [facility] Comment on above: Performed By: #### C BCA, 53282-0, CMP, 28795-0, 54138-0 #### [facility] ([id number]) [address] [place] [address] 53985 Hemoglobin (Bld) [Mass/Vol] 16.9 g/dL High 11.7-15.5 [facility] Comment on above: Performed By: #### Casey BCA, 76683-3, CMP, 68077-5, 40571-5 #### [facility] ([id number]) [address] [place] [address] 19954 Lymphocytes (Bld) [#/Vol] 2.5 10*3/uL Normal 1.0-3.5 [facility] Comment on above: Performed By: #### Casey LUGO, 19183-5, CMP, 84149-7, 48552-8 #### [facility] ([id number]) [address] [place] [address] 38669 Lymphocytes/100 WBC (Bld) 25.5 % Normal [facility] Comment on above: Performed By: #### Casey BCA, 28092-9, CMP, 76065-0, 70624-0 #### [facility] ([id number]) [address] [place] [address] 86071 MCH (RBC) [Entitic mass] 31.5 pg Normal 27-34 [facility] Comment on above: Performed By: #### Casey BCA, 57787-6, CMP, 11281-8, 15754-6 #### [facility] ([id number]) [address] [place] [address] 25873 MCHC (RBC) [Mass/Vol] 33.7 g/dL Normal 32-36 [facility] Comment on above: Performed By: #### Casey BCA, 80999-6, CMP, 65497-2, 14437-9 #### [facility] ([id number]) [address] [place] [address] [place] [address] MCV (RBC) [Entitic vol] 94 fL Normal 80-100 [facility] Comment on above: Performed By: #### Casey LUGO, 71472-6, CMP, 20760-0, 50742-2 #### [facility] ([id number]) [address] [place] [address] 66659 Monocytes (Bld) [#/Vol] 0.9 10*3/uL Normal 0-0.9 [facility] Comment on above: Performed By: #### Casey LUGO, 29790-0, CMP, 64831-6, 14133-0 #### [facility] ([id number]) [address] [place] [address] 64114 Monocytes/100 WBC (Bld) 8.8 % Normal [facility] Comment on above: Performed By: #### Casey LUGO, 13426-8, CMP, 24041-7, 05545-8 #### [facility] ([id number]) [address] [place] [address] 46092 Neutrophils/100 WBC (Bld) 62.6 % Normal [facility] Comment on above: Performed By: #### Casey LUGO, 70957-1, CMP, 72642-2, 22415-2 #### [facility] ([id number]) [address] [place] [address] [place] [address] Platelet mean volume (Bld) [Entitic vol] 9.3 fL Normal 7-12 [facility] Comment on above: Performed By: #### Casey LUGO, 69441-9, CMP, 44113-3, 83917-5 #### [facility] ([id number]) [address] [place] [address] [place] [address] Platelets (Bld) [#/Vol] 243 10*3/uL Normal 150-450 [facility] Comment on above: Performed By: #### Casey LUGO, 37605-6, CMP, 98242-3, 23573-6 #### [facility] ([id number]) [address] [place] [address] 20406 RBC COUNT 5.38 X10E12/L High 3.80-5.20 [facility] Comment on above: Performed By: #### C BCA, 59446-8, CMP, 03564-1, 18265-3 #### [facility] ([id number]) [address] [place] [address] 97862 WBC (Bld) [#/Vol] 9.8 10*3/uL Normal 4.0-11.0 [facility] Comment on above: Performed By: #### C BCA, 61075-3, CMP, 86809-6, 21392-7 #### [facility] ([id number]) [address] [place] [address] 52897 COMPREHENSIVE METABOLIC PANE [facility] 01-17-2024 Albumin [Mass/Vol] 3.1 g/dL Low 3.2-5.3 [facility] Comment on above: Performed By: #### C BCA, 72683-2, CMP, 08429-0, 75847-6 #### [facility] ([id number]) [address] [place] [address] 98762 ALP [Catalytic activity/Vol] 101 U/L Normal 39-130 [facility] Comment on above: Performed By: #### C BCA, 00542-9, CMP, 34033-7, 93343-0 #### [facility] ([id number]) [address] [place] [address] 05647 ALT [Catalytic activity/Vol] 17 U/L Normal 0-31 [facility] Comment on above: Performed By: #### C BCA, 50436-8, CMP, 56972-4, 80318-6 #### [facility] ([id number]) [address] [place] [address] 84096 Anion gap [Moles/Vol] 8 mmol/L Normal 5-15 [facility] Comment on above: Performed By: #### C BCA, 81410-2, CMP, 32601-5, 09890-9 #### [facility] ([id number]) [address] [place] [address] 69459 AST [Catalytic activity/Vol] 18 U/L Normal 0-41 [facility] Comment on above: Performed By: #### C BCA, 09933-6, CMP, 75361-9, 42629-9 #### [facility] ([id number]) [address] [place] [address] 42632 Bilirubin [Mass/Vol] 1.0 mg/dL Normal 0.3-1.2 [facility] Comment on above: Performed By: #### C BCA, 21094-3, CMP, 96315-0, 45968-8 #### [facility] ([id number]) [address] [place] [address] 92959 Calcium [Mass/Vol] 8.4 mg/dL Low 8.5-10.5 [facility] Comment on above: Performed By: #### C BCA, 60865-7, CMP, 86651-8, 05741-3 #### [facility] ([id number]) [address] [place] [address] 41320 Chloride [Moles/Vol] 95 mmol/L Low 98-109 [facility] Comment on above: Performed By: #### C BCA, 73676-8, CMP, 11734-0, 01869-6 #### [facility] ([id number]) [address] [place] [address] 61133 CO2 [Moles/Vol] 30 mmol/L Normal 22-32 [facility] Comment on above: Performed By: #### C BCA, 09891-2, CMP, 89162-2, 53812-8 #### [facility] ([id number]) [address] [place] [address] 53253 Creatinine [Mass/Vol] 0.63 mg/dL Normal 0.40-1.00 [facility] Comment on above: Result Comment: METH OD TRACEABLE TO IDMS STANDARD Performed By: #### C BCA, 69425-4, CMP, 21813-1, 75597-1 #### [facility] ([id number]) [address] [place] [address] 37263 eGFR (CKD-EPI) NON-RACE DEPENDENT >90 Normal >59 [facility] Comment on above: Result Comment: Reported eGFR is based on the CKD-EPI 2020 equation that does not use a race coefficient. Performed By: #### C BCA, 00917-6, CMP, 41255-3, 75195-4 #### [facility] ([id number]) [address] [place] [address] 64642 Glucose [Mass/Vol] 229 mg/dL High 65-99 [facility] Comment on above: Performed By: #### C BCA, 67789-6, CMP, 11447-6, 92049-6 #### [facility] ([id number]) [address] [place] [address] 96601 Potassium [Moles/Vol] 2.8 mmol/L Low 3.5-5.0 [facility] Comment on above: Performed By: #### C BCA, 41003-4, CMP, 55892-6, 01997-1 #### [facility] ([id number]) [address] [place] [address] 72999 Protein [Mass/Vol] 6.5 g/dL Normal 6.0-8.0 [facility] Comment on above: Performed By: #### C BCA, 49001-2, CMP, 34309-8, 07589-6 #### [facility] ([id number]) [address] [place] [address] 09535 Sodium [Moles/Vol] 133 mmol/L Low 134-146 [facility] Comment on above: Performed By: #### C BRITTNEY, 80915-2, CMP, , 06387-1 #### [facility] ([id number]) [address] [place] [address] 78295 Urea nitrogen [Mass/Vol] 9 mg/dL Normal 5-27 [facility] Comment on above: Performed By: #### C BRITTNEY, 60464-9, CMP, , 82483-1 #### [facility] ([id number]) [address] [place] [address] 34570 Glucose Glucometer (BldC) [M ass/Vol]on 01-17-2024 Glucose [Mass/Vol] 406 mg/dL Critically high 65-99 [facility] Glucose [Mass/Vol] 296 mg/dL High 65-99 [facility] Glucose [Mass/Vol] 302 mg/dL High 65-99 [facility] MAGNESIUMon 01-17-2024 Magnesium [Mass/Vol] 2.1 mg/dL Normal 1.8-2.6 [facility] Comment on above: Performed By: #### C BRITTNEY, 37500-5, CMP, , 50166-4 #### [facility] ([id number]) [address] [place] [address] 16332 POTASSIUMon 01-17-2024 Potassium [Moles/Vol] 3.7 mmol/L Normal 3.5-5.0 [facility] Comment on above: Performed By: #### C BRITTNEY, 69501-9, CMP, , 24923-4 #### [facility] ([id number]) [address] [place] [address] 32661 URINE CULTUREon 01-17-2024 Bacteria identified Cx Nom (U) CULTURE RESULTS 10-50,000 ORGANISMS/mL NORMAL UROGENITAL AMILCAR Normal [facility] Comment on above: Performed By: #### Casey LUGO, 68553-2, CMP, 09273-4, 47926-6 #### [facility] ([id number]) [address] [place] [address] 40117 CBC AND AUTO DIFFon 01-16-20 ABSOLUTE BASOPHIL 0.0 X10E9/L Normal 0.0-0.2 [facility] Comment on above: Performed By: #### Casey LUGO, 69223-7, CMP, 21488-8, 87898-0 #### [facility] ([id number]) [address] [place] [address] 65020 ABSOLUTE NEUTROPHIL 10.0 X10E9/L High 1.5-6.6 [facility] Comment on above: Performed By: #### Casey LUGO, 39507-2, CMP, , 40222-8 #### [facility] ([id number]) [address] [place] [address] 03287 Basophils/100 WBC (Bld) 0.3 % Normal [facility] Comment on above: Performed By: #### Casey LUGO, 63299-7, CMP, 58759-4, 51498-2 #### [facility] ([id number]) [address] [place] [address] 99571 Eosinophils (Bld) [#/Vol] 0.1 10*3/uL Normal 0.0-0.4 [facility] Comment on above: Performed By: #### Casey LUGO, 05792-8, CMP, 57955-9, 90274-2 #### [facility] ([id number]) [address] [place] [address] 53683 Eosinophils/100 WBC (Bld) 0.9 % Normal [facility] Comment on above: Performed By: #### Casey LUGO, 70549-6, CMP, 69068-8, 83543-1 #### [facility] ([id number]) [address] [place] [address] 47378 Erythrocyte distribution width (RBC) [Ratio] 13.5 % Normal 11.5-15.0 [facility] Comment on above: Performed By: #### Casey LUGO, 22365-5, CMP, 60537-0, 41088-5 #### [facility] ([id number]) [address] [place] [address] 54688 Hematocrit (Bld) [Volume fraction] 49.5 % High 35-47 [facility] Comment on above: Performed By: #### Casey LUGO, 87315-8, CMP, 96497-8, 45161-4 #### [facility] ([id number]) [address] [place] [address] 57255 Hemoglobin (Bld) [Mass/Vol] 16.8 g/dL High 11.7-15.5 [facility] Comment on above: Performed By: #### Casey LUGO, 52074-2, CMP, 71565-7, 65721-9 #### [facility] ([id number]) [address] [place] [address] 89892 Lymphocytes (Bld) [#/Vol] 1.9 10*3/uL Normal 1.0-3.5 [facility] Comment on above: Performed By: #### Casey LUGO, 28921-6, CMP, 63876-8, 90532-6 #### [facility] ([id number]) [address] [place] [address] 50378 Lymphocytes/100 WBC (Bld) 14.4 % Normal [facility] Comment on above: Performed By: #### Casey LUGO, 65972-1, CMP, 52830-7, 70383-6 #### [facility] ([id number]) [address] [place] [address] 77959 MCH (RBC) [Entitic mass] 31.7 pg Normal 27-34 [facility] Comment on above: Performed By: #### Casey LUGO, 62630-5, CMP, 15669-6, 56153-1 #### [facility] ([id number]) [address] [place] [address] 72970 MCHC (RBC) [Mass/Vol] 33.9 g/dL Normal 32-36 [facility] Comment on above: Performed By: #### Casey LUGO, 56269-1, CMP, 28845-2, 39762-5 #### [facility] ([id number]) [address] [place] [address] 06514 MCV (RBC) [Entitic vol] 94 fL Normal 80-100 [facility] Comment on above: Performed By: #### Casey LUGO, 43125-3, CMP, 88498-8, 25739-0 #### [facility] ([id number]) [address] [place] [address] 31104 Monocytes (Bld) [#/Vol] 1.1 10*3/uL High 0-0.9 [facility] Comment on above: Performed By: #### Casey LUGO, 65324-3, CMP, 78520-3, 85034-6 #### [facility] ([id number]) [address] [place] [address] 00459 Monocytes/100 WBC (Bld) 8.6 % Normal [facility] Comment on above: Performed By: #### Casey LUGO, 04299-0, CMP, 73408-4, 07899-7 #### [facility] ([id number]) [address] [place] [address] 87430 Neutrophils/100 WBC (Bld) 75.8 % Normal [facility] Comment on above: Performed By: #### Casey LUGO, 60664-0, CMP, 18559-3, 35554-2 #### [facility] ([id number]) [address] [place] [address] 00715 Platelet mean volume (Bld) [Entitic vol] 9.3 fL Normal 7-12 [facility] Comment on above: Performed By: #### Casey BCA, 82182-3, CMP, 36001-9, 68414-1 #### [facility] ([id number]) [address] [place] [address] 88996 Platelets (Bld) [#/Vol] 254 10*3/uL Normal 150-450 [facility] Comment on above: Performed By: #### Casey LUGO, 23195-5, CMP, 93976-6, 53809-4 #### [facility] ([id number]) [address] [place] [address] 05619 RBC COUNT 5.29 X10E12/L High 3.80-5.20 [facility] Comment on above: Performed By: #### Casey LUGO, 42512-5, CMP, 89967-0, 82875-0 #### [facility] ([id number]) [address] [place] [address] 58983 WBC (Bld) [#/Vol] 13.2 10*3/uL High 4.0-11.0 [facility] Comment on above: Performed By: #### Casey BCA, 35061-0, CMP, 47779-1, 04793-2 #### [facility] ([id number]) [address] [place] [address] 68580 COMPREHENSIVE METABOLIC PANE [place] 01-16-2024 Albumin [Mass/Vol] 3.5 g/dL Normal 3.2-5.3 [facility] Comment on above: Performed By: #### Casey BCA, 02528-9, CMP, 70958-3, 41648-9 #### [facility] ([id number]) [address] [place] [address] 54134 ALP [Catalytic activity/Vol] 106 U/L Normal 39-130 [facility] Comment on above: Performed By: #### C BCA, 98572-2, CMP, 24180-7, 24918-3 #### [facility] ([id number]) [address] [place] [address] 56297 ALT [Catalytic activity/Vol] 15 U/L Normal 0-31 [facility] Comment on above: Performed By: #### C BCA, 31339-4, CMP, 25412-2, 50495-9 #### [facility] ([id number]) [address] [place] [address] 50510 Anion gap [Moles/Vol] 10 mmol/L Normal 5-15 [facility] Comment on above: Performed By: #### C BCA, 09387-4, CMP, 33569-2, 53985-3 #### [facility] ([id number]) [address] [place] [address] 26219 AST [Catalytic activity/Vol] 13 U/L Normal 0-41 [facility] Comment on above: Performed By: #### Casey BCA, 32831-3, CMP, 49537-5, 85019-3 #### [facility] ([id number]) [address] [place] [address] 75376 Bilirubin [Mass/Vol] 0.7 mg/dL Normal 0.3-1.2 [facility] Comment on above: Performed By: #### C BCA, 18900-1, CMP, 45284-8, 26335-1 #### [facility] ([id number]) [address] [place] [address] 93119 Calcium [Mass/Vol] 8.4 mg/dL Low 8.5-10.5 [facility] Comment on above: Performed By: #### C BCA, 21729-3, CMP, 48942-6, 41043-2 #### [facility] ([id number]) [address] [place] [address] 09013 Chloride [Moles/Vol] 92 mmol/L Low 98-109 [facility] Comment on above: Performed By: #### C BCA, 35793-8, CMP, 78028-8, 82241-3 #### [facility] ([id number]) [address] [place] [address] 87669 CO2 [Moles/Vol] 28 mmol/L Normal 22-32 [facility] Comment on above: Performed By: #### C BCA, 35935-3, CMP, 52779-0, 75186-4 #### [facility] ([id number]) [address] [place] [address] 82663 Creatinine [Mass/Vol] 0.77 mg/dL Normal 0.40-1.00 [facility] Comment on above: Result Comment: METH OD TRACEABLE TO IDMS STANDARD Performed By: #### C BRITTNEY, 50805-6, CMP, 54315-0, 87859-4 #### [facility] ([id number]) [address] [place] [address] 41011 GFR/1.73 sq M.predicted among non-blacks MDRD (S/P/Bld) [Vol rate/Area] 86 mL/min/{1.73_m2} Normal >59 [facility] Comment on above: Result Comment: Reported eGFR is based on the CKD-EPI 2020 equation that does not use a race coefficient. Performed By: #### C BCA, 31312-3, CMP, 05730-5, 30539-6 #### [facility] ([id number]) [address] [place] [address] 74486 Glucose [Mass/Vol] 512 mg/dL Critically high 65-99 [facility] Comment on above: Performed By: #### C BCA, 58737-1, CMP, 68255-1, 35206-0 #### [facility] ([id number]) [address] [place] [address] 02693 Potassium [Moles/Vol] 2.8 mmol/L Low 3.5-5.0 [facility] Comment on above: Performed By: #### C BCA, 40688-8, CMP, 51988-9, 04441-9 #### [facility] ([id number]) [address] [place] [address] 07666 Protein [Mass/Vol] 6.8 g/dL Normal 6.0-8.0 [facility] Comment on above: Performed By: #### Casey LUGO, 01148-8, CMP, 15794-0, 25367-5 #### [facility] ([id number]) [address] [place] [address] 62407 Sodium [Moles/Vol] 130 mmol/L Low 134-146 [facility] Comment on above: Performed By: #### Casey BCA, 30864-6, CMP, 72031-3, 61316-1 #### [facility] ([id number]) [address] [place] [address] 89874 Urea nitrogen [Mass/Vol] 8 mg/dL Normal 5-27 [facility] Comment on above: Performed By: #### Casey BCA, 14875-9, CMP, 44589-9, 06338-9 #### [facility] ([id number]) [address] [place] [address] BRAIN WO CONTon 4 CT BRAIN WO CONT CT BRAIN WO [...] Jones MD on 01/16/2024 2:11 PM Normal [facility] Glucose Glucometer (BldC) [M ass/Vol]on 01-16-2024 Glucose [Mass/Vol] 254 mg/dL High 65-99 [facility] Glucose [Mass/Vol] 265 mg/dL High 65-99 [facility] Glucose [Mass/Vol] 381 mg/dL High 65-99 [facility] Glucose [Mass/Vol] 373 mg/dL High 65-99 [facility] MAGNESIUMon 01-16-2024 Magnesium [Mass/Vol] 2.0 mg/dL Normal 1.8-2.6 [facility] Comment on above: Performed By: #### C BRITTNEY, 45694-1, [facility], 38842-7, 40204-8 #### [facility] ([id number]) [address] [place] [address] 91750 Procalcitonin IA [Mass/Vol]o n 01-16-2024 PROCALCITONIN 0.07 ng/mL High <0.05 [facility] Comment on above: Result Comment: NOTE <0.50 ng/mL - Low risk of severe sepsis and/or septic shock. <2.00 ng/mL - Recommend retesting within 6-24 hours. >2.00 ng/mL - High risk of sepsis and/or septic shock. Performed By: #### C BRITTNEY, 87020-6, [facility], 05643-7, 40193-4 #### [facility] ([id number]) [address] [place] [address] 47897 Troponin I.cardiac High sens itivity method [Mass/Vol]on 01-16-2024 1 HOUR TROP I, HIGH SENSITIVITY 5 ng/L Normal <16 [facility] Comment on above: Performed By: #### 8 9579-7 #### [facility] ([id number]) [address] [place] [address] 19608 TROPONIN I, HIGH SENSITIVITY 5 ng/L Normal <16 [facility] Comment on above: Performed By: #### C BRITTNEY, 99583-8, CMP, 75392-2, 17581-3 #### [facility] ([id number]) [address] [place] [address] 12627 URINALYSISon 01-16-2024 Bilirubin Ql (U) Negative Normal NEG [facility] Comment on above: Performed By: #### Casey LUGO, 94841-5, CMP, 90595-5, 90589-0 #### [facility] ([id number]) [address] [place] [address] [place] [address] BLOOD/HGB Trace Abnormal NEG [facility] Comment on above: Performed By: #### C BRITTNEY, 90092-1, CMP, 83222-4, 96781-0 #### [facility] ([id number]) [address] [place] [address] 32628 Color (U) YELLOW Normal YELLOW [facility] Comment on above: Performed By: #### C BRITTNEY, 20541-5, CMP, 31328-3, 47366-2 #### [facility] ([id number]) [address] [place] [address] 05143 Glucose Ql (U) >1000 Abnormal NEG [facility] Comment on above: Performed By: #### C BRITTNEY, 07035-1, CMP, 22766-5, 53164-1 #### [facility] ([id number]) [address] [place] [address] 22399 Ketones Ql (U) Negative Normal NEG [facility] Comment on above: Performed By: #### C BCA, 64697-7, CMP, 88402-3, 85567-9 #### [facility] ([id number]) [address] [place] [address] 52174 Leukocyte esterase Test strip Ql (U) Negative Normal NEG [facility] Comment on above: Result Comment: HIGH CONCENTRATIONS OF GLUCOSE MAY DECREASE THE REACTIVITY OF THE DIPSTICK LEUKOCYTE TEST PAD. Performed By: #### C BCA, 13397-6, CMP, 36134-9, 55440-4 #### [facility] ([id number]) [address] [place] [address] 02107 Nitrite Ql (U) Negative Normal NEG [facility] Comment on above: Performed By: #### Casey BCA, 74915-1, CMP, 46023-6, 00512-1 #### [facility] ([id number]) [address] [place] [address] 40963 pH (U) 6.0 [pH] Normal 5.0-8.5 [facility] Comment on above: Performed By: #### C BCA, 37670-3, CMP, 63546-3, 89597-6 #### [facility] ([id number]) [address] [place] [address] 89449 Protein Ql (U) Negative Normal NEG [facility] Comment on above: Performed By: #### C BCA, 14828-8, CMP, 11926-4, 08255-6 #### [facility] ([id number]) [address] [place] [address] 26515 R.B.CELLS 6 /hpf High 0-5 [facility] Comment on above: Performed By: #### Casey BCA, 35552-7, CMP, 10277-7, 92216-2 #### [facility] ([id number]) [address] [place] [address] [place] [address] Specific gravity (U) [Rel density] <1.005 Normal 1.003-1.035 [facility] Comment on above: Performed By: #### C BRITTNEY, 17717-9, CMP, 91312-0, 93980-4 #### [facility] ([id number]) [address] [place] [address] 91964 SQUAMOUS EPITHELIUM 2 /hpf Normal 0-5 [facility] Comment on above: Performed By: #### C BRITTNEY, 91106-9, CMP, 01945-0, 79164-1 #### [facility] ([id number]) [address] [place] [address] 38974 TURBIDITY CLEAR Normal CLEAR [facility] Comment on above: Performed By: #### C BRITTNEY, 72369-5, [facility], 97624-3, 93521-1 #### [facility] ([id number]) [address] [place] [address] 86738 Urobilinogen Qn (U) 0.2 {Beau'U}/dL Normal <1.1 [facility] Comment on above: Performed By: #### C BRITTNEY, 85706-8, CMP, 55237-9, 52889-0 #### [facility] ([id number]) [address] [place] [address] 09311 W.B.CELLS 2 /hpf Normal 0-5 [facility] Comment on above: Performed By: #### C BRITTNEY, 26850-3, CMP, 31188-7, 25843-4 #### [facility] ([id number]) [address] [place] [address] 64255 URN MACROSCOPIC NURon 2023 BILIRUBIN ANISHA Negative Normal NEG [facility] Comment on above: Performed By: #### N UM #### [facility] ([id number]) [address] [place] [address] [place] [address] BLOOD/HGB ANISHA Trace Abnormal NEG [facility] Comment on above: Performed By: #### N UM #### [facility] ([id number]) [address] [place] [address] 79230 GLUCOSE ANISHA >=1000 Abnormal NEG [facility] Comment on above: Performed By: #### N UM #### [facility] ([id number]) [address] [place] [address]720 KETONES ANISHA Negative Normal NEG [facility] Comment on above: Performed By: #### N UM #### [facility] ([id number]) [address] [place] [address] 83891 LEUKOCYTE ESTERASE ANISHA Trace Abnormal NEG [facility] Comment on above: Performed By: #### N UM #### [facility] ([id number]) [address] [place] [address] 95037 NITRITE ANISHA Negative Normal NEG [facility] Comment on above: Performed By: #### N UM #### [facility] ([id number]) [address] [place] [address] 94418 PH ANISHA 5.5 Normal 5.0-8.5 [facility] Comment on above: Performed By: #### N UM #### [facility] ([id number]) [address] [place] [address] 45343 PROTEIN ANISHA Negative Normal NEG [facility] Comment on above: Performed By: #### N UM #### [facility] ([id number]) [address] [place] [address] 87133 SPECIFIC GRAVITY ANISHA <=1.005 Normal 1.003-1.035 [facility] Comment on above: Performed By: #### N UM #### [facility] ([id number]) [address] [place] [id number] UROBILINOGEN ANISHA 0.2 eu/dL Normal <1.1 [facility] Comment on above: Performed By: #### N UM #### [facility] ([id number]) [address] [place] [address] XR DEXA BONE DENSITYon 10-02 XR DEXA [...] by: ROBERT HART Date: 2022-10-02 12:08 Normal [facility] LIPID PROFILEon 08-09-2022 CHOL-HDL RATIO NORM SEE BELOW Normal [facility] Comment on above: Result Comment: 3.3 - 4.4 LOW RISK 4.4 - 7.1 AVERAGE RISK 7.1 - 11.0 MODERATE RISK >11.0 HIGH RISK Performed By: #### M ALBR #### [facility] [address] [address] [address] Maru Disla Cholesterol [Mass/Vol] 110 mg/dL Normal <=200 [facility] Comment on above: Performed By: #### M ALBR #### [facility] [address] [address] [address] Maru Disla Cholesterol in HDL [Mass/Vol] 38 mg/dL Critically low 40-60 [facility] Comment on above: Performed By: #### M ALBR #### [facility] [address] [address] [address] Maru Disla Cholesterol in LDL [Mass/Vol] 52.4 mg/dL Normal [facility] Comment on above: Performed By: #### M ALBR #### [facility] [address] [place] [address] Dr. Maru Disla Cholesterol.total/Chol esterol in HDL [Mass ratio] 2.9 {ratio} Normal [facility] Comment on above: Performed By: #### M ALBR #### [facility] [address] [address] [address] Maru Disla HDL NORMAL > or = 60 mg/dl - LOW CARDIOVASCULAR RISK <40 mg/dl - HIGH CARDIOVASCULAR RISK Normal [facility] Comment on above: Performed By: #### M ALBR #### [facility] [address] [place] [address] Dr. Maru Disla LDL CALC NORMAL SEE BELOW Normal [facility] Comment on above: Result Comment: <100 mg/dl OPTIMAL 100 - 129 mg/dl NEAR OR ABOVE OPTIMAL 130 - 159 mg/dl BORDERLINE HIGH 160 - 189 mg/dl HIGH >190 mg/dl VERY HIGH Performed By: #### M ALBR #### [facility] [address] [address] [address] Maru Disla Triglyceride [Mass/Vol] 98 mg/dL Normal <=150 [facility] Comment on above: Performed By: #### M ALBR #### [facility] [address] [place] [address] Dr. Maru Disla VLDL CALC 19.6 mg/dL Normal [facility] Comment on above: Performed By: #### M ALBR #### [facility] [address] [address] [address] Maru Disla MICROALBUMIN, RAND URon mALB <1.3 Normal <=30.0 [facility] Comment on above: Performed By: #### M ALBR #### [facility] [address] [place] [address] Dr. Maru Disla PROF 14(COMP METB)on 023 Albumin [Mass/Vol] 3.6 g/dL Normal 3.4-5.0 [facility] Comment on above: Performed By: #### M ALBR #### [facility] [address] [address] [address] Maru Disla Albumin/Globulin [Mass ratio] 0.9 {ratio} Normal [facility] Comment on above: Performed By: #### M ALBR #### [facility] [address] [address] [address] Maru Disla ALP [Catalytic activity/Vol] 92 U/L Normal 46-116 [facility] Comment on above: Performed By: #### M ALBR #### [facility] [address] [address] [address] Maru Disla ALT [Catalytic activity/Vol] 22 U/L Normal 14-59 [facility] Comment on above: Performed By: #### M ALBR #### [facility] [address] [place] [address] Dr. Maru Disla Anion gap [Moles/Vol] 13.2 mmol/L Normal [place] Comment on above: Performed By: #### M ALBR #### [facility] [address] [place] [address] Dr. Maru Disla AST [Catalytic activity/Vol] 17 U/L Normal 15-37 [facility] Comment on above: Performed By: #### M ALBR #### [facility] [address] [place] [address] Dr. Maru Disla Bilirubin [Mass/Vol] 0.4 mg/dL Normal 0.2-1.0 [facility] Comment on above: Performed By: #### M ALBR #### [facility] [address] [place] [address] Dr. Maru Disla Calcium [Mass/Vol] 9.3 mg/dL Normal 8.5-10.1 [facility] Comment on above: Performed By: #### M ALBR #### [facility] [address] [place] [address] Dr. Maru Disla Chloride [Moles/Vol] 102 mmol/L Normal 98-107 [facility] Comment on above: Performed By: #### M ALBR #### [facility] [address] [address] [address] Maru Disla CO2 [Moles/Vol] 29.7 mmol/L Normal 21.0-32.0 [facility] Comment on above: Performed By: #### M ALBR #### [facility] [address] [address] [address] Maru Disla Creatinine [Mass/Vol] 0.74 mg/dL Normal 0.55-1.02 [facility] Comment on above: Performed By: #### M ALBR #### [facility] [address] [address] [address] Maru Disla EGFR-AF CITIZEN OF THE [place] >60 Normal >=60 [facility] Comment on above: Performed By: #### M ALBR #### [facility] [address] [place] [address] Dr. Maru Disla EGFR-NON AF CITIZEN OF [place] >60 Normal >=60 [facility] Comment on above: Performed By: #### M ALBR #### [facility] [address] [place] [address] Dr. Maru Disla Globulin (S) [Mass/Vol] 3.9 g/dL Normal [facility] Comment on above: Performed By: #### M ALBR #### [facility] [address] [place] [address] Dr. Maru Disla Glucose [Mass/Vol] 271 mg/dL Critically high 74-106 [facility] Comment on above: Performed By: #### M ALBR #### [facility] [address] [place] [address] Dr. Maru Disla Potassium [Moles/Vol] 3.9 mmol/L Normal 3.5-5.1 [facility] Comment on above: Performed By: #### M ALBR #### [facility] [address] [place] [address] Dr. Maru Disla Protein [Mass/Vol] 7.5 g/dL Normal 6.4-8.2 [facility] Comment on above: Performed By: #### M ALBR #### [facility] [address] [address] [address] Maru Disla Sodium [Moles/Vol] 141 mmol/L Normal 136-145 [facility] Comment on above: Performed By: #### M ALBR #### [facility] [address] [address] [address] Maru Disla Urea nitrogen [Mass/Vol] 8.0 mg/dL Normal 7.0-18.0 [facility] Comment on above: Performed By: #### M ALBR #### [facility] [address] [address] [address] Maru Disla Urea nitrogen/Creatinine [Mass ratio] 10.8 mg/mg Normal [facility] Comment on above: Performed By: #### M ALBR #### [facility] [address] [address] [address] Maru Disla MG MAMM SCREEN 3D BALDO CADon 06-21-2022 MG MAMM SCREEN 3D BALDO CAD Patient: DENAE DIOR Exam Date: 06/21/2022 : 1960 Gender:F Ordering : [facility] Admission #: [id number] Family : Order #: [id number] CLICK HERE TO VIEW EXAM RADIOLOGY REPORT [...] age 64. LOCATION: [facility] BREAST COMPOSITION: Scattered areas fibroglandular [...] PALPABLE LUMP SHOULD BE BIOPSIED. Dictated by: Cornie Angela MD on 06/21/2022 at 10:07 Approved by: Corine Angela MD on 06/21/2022 at 10:10 Normal [facility] HEMOGLOBINon 06-20-2022 Hemoglobin (Bld) [Mass/Vol] 15.1 g/dL Normal 12.0-16.0 [facility] Comment on above: Performed By: #### B MP #### [facility] [address] [place] [address] Dr. Maru Disla BNPon 04-09-2022 Natriuretic peptide B (Bld) [Mass/Vol] 824.0 pg/mL Normal <=900.0 [facility] Comment on above: Performed By: #### M ALBR #### [facility] [address] [place] [address] Dr. Maru Disla CARDIAC BREANNE ADMITon 022 CK [Catalytic activity/Vol] 364 U/L Critically high 26-192 [facility] Comment on above: Performed By: #### P OCGLUC #### [facility] [address] [place] [address] Dr. Maru Disla CK.MB [Mass/Vol] 5.60 ng/mL Critically high <=3.60 [facility] Comment on above: Performed By: #### P OCGLUC #### [facility] [address] [place] [address] Dr. Maru Disla HSTROP 454.7 pg/mL Critically high 4.0-51.3 [facility] Comment on above: Result Comment: CUT- OFF POINTS HAVE BEEN ESTABLISHED BASED ON THE FOURTH UNIVERSAL DEFINITIONS OF MYOCARDIAL INFARCTION. THE UPPER REFERENCE LIMIT (URL) OF TROPONIN, DEFINED THE 99TH PERCENTILE OF cTnI DISTRIBUTION IN A REFERENCE POPULATION, HAS BEEN CONFIRMED THE DECISION THRESHOLD FOR [place] DIAGNOSIS. Performed By: #### P OCGLUC #### [facility] [address] [place] [address] Dr. Maru Disla REDD 137 ng/mL Critically high 9-82 [facility] Comment on above: Performed By: #### P OCGLUC #### [facility] [address] [place] [address] Dr. Maru Disla CBC AUTO DIFFon 04-09-2022 BASO # 0.0 103/ul Normal 0.0-0.1 [facility] Comment on above: Performed By: #### A BG #### [facility] [address] [place] [address] Dr. Maru Disla Basophils/100 WBC (Bld) 0.2 % Normal 0.2-2.0 [facility] Comment on above: Performed By: #### A BG #### [facility] [address] [place] [address] Dr. Maru Disla EO # 0.0 103/ul Normal 0.0-0.7 [facility] Comment on above: Performed By: #### A BG #### [facility] [address] [place] [address] Dr. Maru Disla Eosinophils/100 WBC (Bld) 0.0 % Critically low 0.9-7.0 [facility] Comment on above: Performed By: #### A BG #### [facility] [address] [place] [address] Dr. Maru Disla Erythrocyte distribution width (RBC) [Ratio] 13.4 % Normal 11.0-15.0 [facility] Comment on above: Performed By: #### A BG #### [facility] [address] [place] [address] Dr. Maru Disla Hematocrit (Bld) [Volume fraction] 48.3 % Critically high 36.0-48.0 [facility] Comment on above: Performed By: #### A BG #### [facility] [address] [place] [address] Dr. Maru Disla Hemoglobin (Bld) [Mass/Vol] 15.3 g/dL Normal 12.0-16.0 [facility] Comment on above: Performed By: #### A BG #### [facility] [address] [place] [address] Dr. Maru Disla IG # 0.11 10e3/ul Critically high 0.00-0.03 [facility] Comment on above: Performed By: #### A BG #### [facility] [address] [place] [address] Dr. Maru Disla IG % 0.6 % Critically high 0.0-0.5 [facility] Comment on above: Performed By: #### A BG #### [facility] [address] [place] [address] Dr. Maru Disla LYMPH # 1.1 103/ul Critically low 1.2-3.8 [facility] Comment on above: Performed By: #### A BG #### [facility] [address] [place] [address] Dr. Maru Disla Lymphocytes/100 WBC (Bld) 6.1 % Critically low 20.5-60.0 [facility] Comment on above: Performed By: #### A BG #### [facility] [address] [place] [address] Dr. Maru Disla MANUAL DIFF REQ NO Normal [facility] Comment on above: Performed By: #### A BG #### [facility] [address] [place] [address] Dr. Maru Disla MCH (RBC) [Entitic mass] 29.8 pg Normal 26.7-34.0 [facility] Comment on above: Performed By: #### A BG #### [facility] [address] [place] [address] Dr. Maru Disla MCHC (RBC) [Mass/Vol] 31.7 g/dL Normal 29.9-35.2 [facility] Comment on above: Performed By: #### A BG #### [facility] [address] [place] [address] Dr. Maru Disla MCV (RBC) [Entitic vol] 94.2 fL Normal 81.0-99.0 [facility] Comment on above: Performed By: #### A BG #### [facility] [address] [place] [address] Dr. Maru Disla MONO # 0.7 103/ul Normal 0.3-0.8 [facility] Comment on above: Performed By: #### A BG #### [facility] [address] [place] [address] Dr. Maru Disla Monocytes/100 WBC (Bld) 3.9 % Normal 1.7-12.0 [facility] Comment on above: Performed By: #### A BG #### [facility] [address] [place] [address] Dr. Maru Disla NEUT # 15.3 103/ul Critically high 1.4-6.5 [facility] Comment on above: Performed By: #### A BG #### [facility] [address] [place] [address] Dr. Maru Disla Neutrophils/100 WBC (Bld) 89.2 % Critically high 43.0-75.0 [facility] Comment on above: Performed By: #### A BG #### [facility] [address] [place] [address] Dr. Maru Disla Platelet mean volume (Bld) [Entitic vol] 10.4 fL Normal 9.5-13.5 [facility] Comment on above: Performed By: #### A BG #### [facility] [address] [place] [address] Dr. Maru Disla PLT 311 103/ul Normal 150-450 [facility] Comment on above: Performed By: #### A BG #### [facility] [address] [place] [address] Dr. Maru Disla RBC 5.13 106/ul Normal 4.20-5.40 [facility] Comment on above: Performed By: #### A BG #### [facility] [address] [place] [address] Dr. Maru Disla WBC 17.2 103/ul Critically high 4.0-11.0 [facility] Comment on above: Performed By: #### A BG #### [facility] [address] [place] [address] Dr. Maru Disla ECHOCARDIO M/2D COMPLETEon 1 06-09-2021 ECHOCARDIO M/2D COMPLETE Patient: DENAE DIOR Exam Date: 04/09/2022 : 1960 Gender:F Ordering : DR TERI BLOCK . Admission #: [id number] Family : Order #: [id number] CLICK HERE TO VIEW EXAM ECHOCARDIOGRAM REPORT [...] Subramanian M.D. on 04/10/2022 at 15:44 Normal [facility] POINT OF CARE GLUCOSEon 11-0 Glucose [Mass/Vol] 171 mg/dL Critically high 74-106 [facility] Comment on above: Performed By: #### P OCGLUC #### [facility] [address] [place] [address] Dr. Maru Disla Glucose [Mass/Vol] 97 mg/dL Normal 74-106 [facility] Comment on above: Performed By: #### M ALBR #### [facility] [address] [address] [address] Maru Disla PROF CHEM 8 (BAS METB)on Anion gap [Moles/Vol] 9.1 mmol/L Normal [facility] Comment on above: Performed By: #### P OCGLUC #### [facility] [address] [address] [address] Maru Disla Calcium [Mass/Vol] 8.7 mg/dL Normal 8.5-10.1 [facility] Comment on above: Performed By: #### P OCGLUC #### [facility] [address] [address] [address] Maru Disla Chloride [Moles/Vol] 104 mmol/L Normal 98-107 [facility] Comment on above: Performed By: #### P OCGLUC #### [facility] [address] [address] [address] Maru Disla CO2 [Moles/Vol] 33.2 mmol/L Critically high 21.0-32.0 [facility] Comment on above: Performed By: #### P OCGLUC #### [facility] [address] [address] [address] Maru Disla Creatinine [Mass/Vol] 0.87 mg/dL Normal 0.55-1.02 [facility] Comment on above: Performed By: #### P OCGLUC #### [facility] [address] [address] [address] Maru Disla EGFR-AF CITIZEN [place] >60 Normal >=60 [facility] Comment on above: Performed By: #### P OCGLUC #### [facility] [address] [address] [address] Maru Disla EGFR-NON AF CITIZEN OF [place] >60 Normal >=60 [facility] Comment on above: Performed By: #### P OCGLUC #### [facility] [address] [address] [address] Maru Disla Glucose [Mass/Vol] 115 mg/dL Critically high 74-106 [facility] Comment on above: Performed By: #### P OCGLUC #### [facility] [address] [address] [address] Maru Disla Potassium [Moles/Vol] 4.3 mmol/L Normal 3.5-5.1 [facility] Comment on above: Performed By: #### P OCGLUC #### [facility] [address] [address] [address] Maru Disla Sodium [Moles/Vol] 142 mmol/L Normal 136-145 [facility] Comment on above: Performed By: #### P OCGLUC #### [facility] [address] [address] [address] Maru Disla Urea nitrogen [Mass/Vol] 36.0 mg/dL Critically high 7.0-18.0 [facility] Comment on above: Performed By: #### P OCGLUC #### [facility] [address] [place] [address] Dr. Maru Disla Urea nitrogen/Creatinine [Mass ratio] 41.4 mg/mg Normal [facility] Comment on above: Performed By: #### P OCGLUC #### [facility] [address] [place] [address] Dr. Maru Disla CARDIAC BREANNE 3-6on 2 CK [Catalytic activity/Vol] 381 U/L Critically high 26-192 [facility] Comment on above: Performed By: #### C MREP #### [facility] [address] [place] [address] Dr. Maru Disla CK.MB [Mass/Vol] 7.91 ng/mL Critically high <=3.60 [facility] Comment on above: Performed By: #### C MREP #### [facility] [address] [place] [address] Dr. Maru Disla HSTROP 766.1 pg/mL Critically high 4.0-51.3 [facility] Comment on above: Result Comment: CUT- OFF POINTS HAVE BEEN ESTABLISHED BASED ON THE FOURTH UNIVERSAL DEFINITIONS OF MYOCARDIAL INFARCTION. THE UPPER REFERENCE LIMIT (URL) OF TROPONIN, DEFINED THE 99TH PERCENTILE OF cTnI DISTRIBUTION IN A REFERENCE POPULATION, HAS BEEN CONFIRMED THE DECISION THRESHOLD FOR [place] DIAGNOSIS. Performed By: #### C MREP #### [facility] [address] [place] [address] Dr. Maru Disla CK [Catalytic activity/Vol] 356 U/L Critically high 26-192 [facility] Comment on above: Performed By: #### C MREP #### [facility] [address] [place] [address] Dr. Maru Disla CK.MB [Mass/Vol] 8.66 ng/mL Critically high <=3.60 [facility] Comment on above: Performed By: #### C MREP #### [facility] [address] [place] [address] Dr. Maru Disla HSTROP 610.6 pg/mL Critically high 4.0-51.3 [facility] Comment on above: Result Comment: CUT- OFF POINTS HAVE BEEN ESTABLISHED BASED ON THE FOURTH UNIVERSAL DEFINITIONS OF MYOCARDIAL INFARCTION. THE UPPER REFERENCE LIMIT (URL) OF TROPONIN, DEFINED THE 99TH PERCENTILE OF cTnI DISTRIBUTION IN A REFERENCE POPULATION, HAS BEEN CONFIRMED THE DECISION THRESHOLD FOR [place] DIAGNOSIS. Performed By: #### C MREP #### [facility] [address] [place] [address] Dr. Maru Disla CARDIAC BREANNE ADMITon 022 CK [Catalytic activity/Vol] 381 U/L Critically high 26-192 [facility] Comment on above: Performed By: #### C MADM #### [facility] [address] [place] [address] Dr. Maru Disla CK.MB [Mass/Vol] 8.07 ng/mL Critically high <=3.60 [facility] Comment on above: Performed By: #### C MADM #### [facility] [address] [place] [address] Dr. Maru Disla HSTROP 220.2 pg/mL Critically high 4.0-51.3 [facility] Comment on above: Result Comment: CUT- OFF POINTS HAVE BEEN ESTABLISHED BASED ON THE FOURTH UNIVERSAL DEFINITIONS OF MYOCARDIAL INFARCTION. THE UPPER REFERENCE LIMIT (URL) OF TROPONIN, DEFINED THE 99TH PERCENTILE OF cTnI DISTRIBUTION IN A REFERENCE POPULATION, HAS BEEN CONFIRMED THE DECISION THRESHOLD FOR [place] DIAGNOSIS. Performed By: #### C MADM #### [facility] [address] [place] [address] Dr. Maru Disla REDD 269 ng/mL Critically high 9-82 [facility] Comment on above: Performed By: #### C MADM #### [facility] [address] [place] [address] Dr. Maru Disla CBC AUTO DIFFon 04-08-2022 BASO # 0.0 103/ul Normal 0.0-0.1 [facility] Comment on above: Performed By: #### M ALBR #### [facility] [address] [address] [address] Maru Disla Basophils/100 WBC (Bld) 0.2 % Normal 0.2-2.0 [facility] Comment on above: Performed By: #### M ALBR #### [facility] [address] [place] [address] Dr. Maru Disla EO # 0.0 103/ul Normal 0.0-0.7 [facility] Comment on above: Performed By: #### M ALBR #### [facility] [address] [place] [address] Dr. Maru Disla Eosinophils/100 WBC (Bld) 0.0 % Critically low 0.9-7.0 [facility] Comment on above: Performed By: #### M ALBR #### [facility] [address] [place] [address] Dr. Maru Disla Erythrocyte distribution width (RBC) [Ratio] 13.4 % Normal 11.0-15.0 [facility] Comment on above: Performed By: #### M ALBR #### [facility] [address] [place] [address] Dr. Maru Disla Hematocrit (Bld) [Volume fraction] 52.7 % Critically high 36.0-48.0 [facility] Comment on above: Performed By: #### M ALBR #### [facility] [address] [place] [address] Dr. Maru Disla Hemoglobin (Bld) [Mass/Vol] 16.8 g/dL Critically high 12.0-16.0 [facility] Comment on above: Performed By: #### M ALBR #### [facility] [address] [place] [address] Dr. Maru Disla IG # 0.13 10e3/ul Critically high 0.00-0.03 [facility] Comment on above: Performed By: #### M ALBR #### [facility] [address] [place] [address] Dr. Maru Disla IG % 0.6 % Critically high 0.0-0.5 [facility] Comment on above: Performed By: #### M ALBR #### [facility] [address] [place] [address] Dr. Maru Disla LYMPH # 0.8 103/ul Critically low 1.2-3.8 [facility] Comment on above: Performed By: #### M ALBR #### [facility] [address] [place] [address] Dr. Maru Disla Lymphocytes/100 WBC (Bld) 3.4 % Critically low 20.5-60.0 [facility] Comment on above: Performed By: #### M ALBR #### [facility] [address] [place] [address] Dr. Maru Disla MANUAL DIFF REQ NO Normal [facility] Comment on above: Performed By: #### M ALBR #### [facility] [address] [place] [address] Dr. Maru Disla MCH (RBC) [Entitic mass] 29.4 pg Normal 26.7-34.0 [facility] Comment on above: Performed By: #### M ALBR #### [facility] [address] [place] [address] Dr. Maru Disla MCHC (RBC) [Mass/Vol] 31.9 g/dL Normal 29.9-35.2 [facility] Comment on above: Performed By: #### M ALBR #### [facility] [address] [place] [address] Dr. Maru Disla MCV (RBC) [Entitic vol] 92.1 fL Normal 81.0-99.0 [facility] Comment on above: Performed By: #### M ALBR #### [facility] [address] [place] [address] Dr. Maru Disla MONO # 0.8 103/ul Normal 0.3-0.8 [facility] Comment on above: Performed By: #### M ALBR #### [facility] [address] [place] [address] Dr. Maru Disla Monocytes/100 WBC (Bld) 3.4 % Normal 1.7-12.0 [facility] Comment on above: Performed By: #### M ALBR #### [facility] [address] [place] [address] Dr. Maru Disla NEUT # 21.8 103/ul Critically high 1.4-6.5 [facility] Comment on above: Performed By: #### M ALBR #### [facility] [address] [place] [address] Dr. Maru Disla Neutrophils/100 WBC (Bld) 92.4 % Critically high 43.0-75.0 [facility] Comment on above: Performed By: #### M ALBR #### [facility] [address] [place] [address] Dr. Maru Disla Platelet mean volume (Bld) [Entitic vol] 10.4 fL Normal 9.5-13.5 [facility] Comment on above: Performed By: #### M ALBR #### [facility] [address] [place] [address] Dr. Maru Disla PLT 335 103/ul Normal 150-450 [facility] Comment on above: Performed By: #### M ALBR #### [facility] [address] [place] [address] Dr. Maru Disla RBC 5.72 106/ul Critically high 4.20-5.40 [facility] Comment on above: Performed By: #### M ALBR #### [facility] [address] [place] [address] Dr. Maru Disla WBC 23.5 103/ul Critically high 4.0-11.0 [facility] Comment on above: Performed By: #### M ALBR #### [facility] [address] [place] [address] Dr. Maru Disla POINT OF CARE GLUCOSEon 11-0 Glucose [Mass/Vol] 275 mg/dL Critically high 74-106 [facility] Comment on above: Performed By: #### P OCGLUC #### [facility] [address] [place] [address] Dr. Maru Disla Glucose [Mass/Vol] 161 mg/dL Critically high 74-106 [facility] Comment on above: Performed By: #### B MP #### [facility] [address] [place] [address] Dr. Maru Disla Glucose [Mass/Vol] 140 mg/dL Critically high 74-106 [facility] Comment on above: Performed By: #### P OCGLUC #### [facility] [address] [address] [address] Maru Disla Glucose [Mass/Vol] 219 mg/dL Critically high 74-106 [facility] Comment on above: Performed By: #### P OCGLUC #### [facility] [address] [address] [address] Maru Disla PROF CHEM 8 (BAS METB)on Anion gap [Moles/Vol] 14.0 mmol/L Normal [place] Comment on above: Performed By: #### M ALBR #### [facility] [address] [place] [address] Dr. Maru Disla Calcium [Mass/Vol] 9.3 mg/dL Normal 8.5-10.1 [facility] Comment on above: Performed By: #### M ALBR #### [facility] [address] [place] [address] Dr. Maru Disla Chloride [Moles/Vol] 98 mmol/L Normal 98-107 [facility] Comment on above: Performed By: #### M ALBR #### [facility] [address] [place] [address] Dr. Maru Disla CO2 [Moles/Vol] 30.5 mmol/L Normal 21.0-32.0 [facility] Comment on above: Performed By: #### M ALBR #### [facility] [address] [place] [address] Dr. Maru Disla Creatinine [Mass/Vol] 1.09 mg/dL Critically high 0.55-1.02 [facility] Comment on above: Performed By: #### M ALBR #### [facility] [address] [place] [address] Dr. Maru Disla EGFR-AF CITIZEN OF [place] >60 Normal >=60 [facility] Comment on above: Performed By: #### M ALBR #### [facility] [address] [place] [address] Dr. Maru Disla EGFR-NON AF CITIZEN OF [place] 51 mL/min/1.73m2 Critically low >=60 [facility] Comment on above: Performed By: #### M ALBR #### [facility] [address] [address] [address] Maru Disla Glucose [Mass/Vol] 242 mg/dL Critically high 74-106 [facility] Comment on above: Performed By: #### M ALBR #### [facility] [address] [address] [address] Maru Disla Potassium [Moles/Vol] 3.5 mmol/L Normal 3.5-5.1 [facility] Comment on above: Performed By: #### M ALBR #### [facility] [address] [place] [address] Dr. Maru Disla Sodium [Moles/Vol] 139 mmol/L Normal 136-145 [facility] Comment on above: Performed By: #### M ALBR #### [facility] [address] [place] [address] Dr. Maru Disla Urea nitrogen [Mass/Vol] 32.0 mg/dL Critically high 7.0-18.0 [facility] Comment on above: Performed By: #### M ALBR #### [facility] [address] [place] [address] Dr. Maru Disla Urea nitrogen/Creatinine [Mass ratio] 29.4 mg/mg Normal [facility] Comment on above: Performed By: #### M ALBR #### [facility] [address] [place] [address] Dr. Maru Disla CBC AUTO DIFFon 04-07-2022 BASO # 0.0 103/ul Normal 0.0-0.1 [facility] Comment on above: Performed By: #### P OCGLUC #### [facility] [address] [place] [address] Dr. Maru Disla Basophils/100 WBC (Bld) 0.2 % Normal 0.2-2.0 [facility] Comment on above: Performed By: #### P OCGLUC #### [facility] [address] [place] [address] Dr. Maru Disla EO # 0.0 103/ul Normal 0.0-0.7 [facility] Comment on above: Performed By: #### P OCGLUC #### [facility] [address] [place] [address] Dr. Maru Disla Eosinophils/100 WBC (Bld) 0.0 % Critically low 0.9-7.0 [facility] Comment on above: Performed By: #### P OCGLUC #### [facility] [address] [place] [address] Dr. Maru Disla Erythrocyte distribution width (RBC) [Ratio] 13.6 % Normal 11.0-15.0 [facility] Comment on above: Performed By: #### P OCGLUC #### [facility] [address] [place] [address] Dr. Maru Disla Hematocrit (Bld) [Volume fraction] 48.1 % Critically high 36.0-48.0 [facility] Comment on above: Performed By: #### P OCGLUC #### [facility] [address] [place] [address] Dr. Maru Disla Hemoglobin (Bld) [Mass/Vol] 14.7 g/dL Normal 12.0-16.0 [facility] Comment on above: Performed By: #### P OCGLUC #### [facility] [address] [place] [address] Dr. Maru Disla IG # 0.16 10e3/ul Critically high 0.00-0.03 [facility] Comment on above: Performed By: #### P OCGLUC #### [facility] [address] [place] [address] Dr. Maru Disla IG % 0.6 % Critically high 0.0-0.5 [facility] Comment on above: Performed By: #### P OCGLUC #### [facility] [address] [place] [address] Dr. Maru Disla LYMPH # 1.0 103/ul Critically low 1.2-3.8 [facility] Comment on above: Performed By: #### P OCGLUC #### [facility] [address] [place] [address] Dr. Maru Disla Lymphocytes/100 WBC (Bld) 4.1 % Critically low 20.5-60.0 [facility] Comment on above: Performed By: #### P OCGLUC #### [facility] [address] [place] [address] Dr. Maru Disla MANUAL DIFF REQ NO Normal [facility] Comment on above: Performed By: #### P OCGLUC #### [facility] [address] [address] [address] Maru Disla MCH (RBC) [Entitic mass] 29.4 pg Normal 26.7-34.0 [facility] Comment on above: Performed By: #### P OCGLUC #### [facility] [address] [address] [address] Maru Disla MCHC (RBC) [Mass/Vol] 30.6 g/dL Normal 29.9-35.2 [facility] Comment on above: Performed By: #### P OCGLUC #### [facility] [address] [place] [address] Dr. Maru Disla MCV (RBC) [Entitic vol] 96.2 fL Normal 81.0-99.0 [facility] Comment on above: Performed By: #### P OCGLUC #### [facility] [address] [place] [address] Dr. Maru Disla MONO # 0.8 103/ul Normal 0.3-0.8 [facility] Comment on above: Performed By: #### P OCGLUC #### [facility] [address] [place] [address] Dr. Maru Disla Monocytes/100 WBC (Bld) 3.2 % Normal 1.7-12.0 [facility] Comment on above: Performed By: #### P OCGLUC #### [facility] [address] [place] [address] Dr. Maru Disla NEUT # 23.1 103/ul Critically high 1.4-6.5 [facility] Comment on above: Performed By: #### P OCGLUC #### [facility] [address] [place] [address] Dr. Maru Disla Neutrophils/100 WBC (Bld) 91.9 % Critically high 43.0-75.0 [facility] Comment on above: Performed By: #### P OCGLUC #### [facility] [address] [address] [address] Maru Disla Platelet mean volume (Bld) [Entitic vol] 10.5 fL Normal 9.5-13.5 [facility] Comment on above: Performed By: #### P OCGLUC #### [facility] [address] [address] [address] Maru Disla PLT 300 103/ul Normal 150-450 [facility] Comment on above: Performed By: #### P OCGLUC #### [facility] [address] [address] [address] Maru Disla RBC 5.00 106/ul Normal 4.20-5.40 [facility] Comment on above: Performed By: #### P OCGLUC #### [facility] [address] [place] [address] Dr. Maru Disla WBC 25.1 103/ul Critically high 4.0-11.0 [facility] Comment on above: Performed By: #### P OCGLUC #### [facility] [address] [place] [address] Dr. Maru Disla POINT OF CARE GLUCOSEon 11-0 Glucose [Mass/Vol] 247 mg/dL Critically high 74-106 [facility] Comment on above: Performed By: #### B MP #### [facility] [address] [place] [address] Dr. Maru Disla Glucose [Mass/Vol] 182 mg/dL Critically high 74-106 [facility] Comment on above: Performed By: #### A BG #### [facility] [address] [place] [address] Dr. Maru Disla Glucose [Mass/Vol] 177 mg/dL Critically high 74-106 [facility] Comment on above: Performed By: #### P OCGLUC #### [facility] [address] [place] [address] Dr. Maru Disla Glucose [Mass/Vol] 191 mg/dL Critically high 74-106 [facility] Comment on above: Performed By: #### P OCGLUC #### [facility] [address] [place] [address] Dr. Maru Disla PROF CHEM 8 (BAS METB)on Anion gap [Moles/Vol] 11.4 mmol/L Normal [place] Comment on above: Performed By: #### M ALBR #### [facility] [address] [place] [address] Dr. Maru Disla Calcium [Mass/Vol] 8.9 mg/dL Normal 8.5-10.1 [facility] Comment on above: Performed By: #### M ALBR #### [facility] [address] [place] [address] Dr. Maru Disla Chloride [Moles/Vol] 108 mmol/L Critically high 98-107 [facility] Comment on above: Performed By: #### M ALBR #### [facility] [address] [place] [address] Dr. Maru Disla CO2 [Moles/Vol] 27.9 mmol/L Normal 21.0-32.0 [facility] Comment on above: Performed By: #### M ALBR #### [facility] [address] [place] [address] Dr. Maru Disla Creatinine [Mass/Vol] 0.84 mg/dL Normal 0.55-1.02 [facility] Comment on above: Performed By: #### M ALBR #### [facility] [address] [place] [address] Dr. Maru Disla EGFR-AF CITIZ[place] >60 Normal >=60 [facility] Comment on above: Performed By: #### M ALBR #### [facility] [address] [place] [address] Dr. Maru Disla EGFR-NON AF CITIZEN OF [place] >60 Normal >=60 [facility] Comment on above: Performed By: #### M ALBR #### [facility] [address] [place] [address] Dr. Maru Disla Glucose [Mass/Vol] 202 mg/dL Critically high 74-106 [facility] Comment on above: Performed By: #### M ALBR #### [facility] [address] [place] [address] Dr. Maru Disla Potassium [Moles/Vol] 4.3 mmol/L Normal 3.5-5.1 [facility] Comment on above: Performed By: #### M ALBR #### [facility] [address] [place] [address] Dr. Maru Disla Sodium [Moles/Vol] 143 mmol/L Normal 136-145 [facility] Comment on above: Performed By: #### M ALBR #### [facility] [address] [place] [address] Dr. Maru Disla Urea nitrogen [Mass/Vol] 26.0 mg/dL Critically high 7.0-18.0 [facility] Comment on above: Performed By: #### M ALBR #### [facility] [address] [place] [address] Dr. Maru Disla Urea nitrogen/Creatinine [Mass ratio] 31.0 mg/mg Normal [facility] Comment on above: Performed By: #### M ALBR #### [facility] [address] [place] [address] Dr. Maru Disla CBC AUTO DIFFon 04-06-2022 BASO # 0.0 103/ul Normal 0.0-0.1 [facility] Comment on above: Performed By: #### B MP #### [facility] [address] [place] [address] Dr. Maru Disla Basophils/100 WBC (Bld) 0.1 % Critically low 0.2-2.0 [facility] Comment on above: Performed By: #### B MP #### [facility] [address] [place] [address] Dr. Maru Disla EO # 0.0 103/ul Normal 0.0-0.7 [facility] Comment on above: Performed By: #### B MP #### [facility] [address] [place] [address] Dr. Maru Disla Eosinophils/100 WBC (Bld) 0.1 % Critically low 0.9-7.0 [facility] Comment on above: Performed By: #### B MP #### [facility] [address] [place] [address] Dr. Maru Disla Erythrocyte distribution width (RBC) [Ratio] 13.4 % Normal 11.0-15.0 [facility] Comment on above: Performed By: #### B MP #### [facility] [address] [place] [address] Dr. Maru Disla Hematocrit (Bld) [Volume fraction] 48.5 % Critically high 36.0-48.0 [facility] Comment on above: Performed By: #### B MP #### [facility] [address] [place] [address] Dr. Maru Disla Hemoglobin (Bld) [Mass/Vol] 15.5 g/dL Normal 12.0-16.0 [facility] Comment on above: Performed By: #### B MP #### [facility] [address] [place] [address] Dr. Maru Disla IG # 0.09 10e3/ul Critically high 0.00-0.03 [facility] Comment on above: Performed By: #### B MP #### [facility] [address] [place] [address] Dr. Maru Disla IG % 0.5 % Normal 0.0-0.5 [facility] Comment on above: Performed By: #### B MP #### [facility] [address] [place] [address] Dr. Maru Disla LYMPH # 0.9 103/ul Critically low 1.2-3.8 [facility] Comment on above: Performed By: #### B MP #### [facility] [address] [place] [address] Dr. Maru Disla Lymphocytes/100 WBC (Bld) 4.5 % Critically low 20.5-60.0 [facility] Comment on above: Performed By: #### B MP #### [facility] [address] [place] [address] Dr. Maru Disla MANUAL DIFF REQ NO Normal [facility] Comment on above: Performed By: #### B MP #### [facility] [address] [place] [address] Dr. Maru Disla MCH (RBC) [Entitic mass] 30.0 pg Normal 26.7-34.0 [facility] Comment on above: Performed By: #### B MP #### [facility] [address] [place] [address] Dr. Maru Disla MCHC (RBC) [Mass/Vol] 32.0 g/dL Normal 29.9-35.2 [facility] Comment on above: Performed By: #### B MP #### [facility] [address] [place] [address] Dr. Maru Disla MCV (RBC) [Entitic vol] 93.8 fL Normal 81.0-99.0 [facility] Comment on above: Performed By: #### B MP #### [facility] [address] [place] [address] Dr. Maur Disla MONO # 0.7 103/ul Normal 0.3-0.8 [facility] Comment on above: Performed By: #### B MP #### [facility] [address] [place] [address] Dr. Maru Disla Monocytes/100 WBC (Bld) 3.5 % Normal 1.7-12.0 [facility] Comment on above: Performed By: #### B MP #### [facility] [address] [place] [address] Dr. Maru Disla NEUT # 18.2 103/ul Critically high 1.4-6.5 [facility] Comment on above: Performed By: #### B MP #### [facility] [address] [place] [address] Dr. Maru Disla Neutrophils/100 WBC (Bld) 91.3 % Critically high 43.0-75.0 [facility] Comment on above: Performed By: #### B MP #### [facility] [address] [place] [address] Dr. Maru Disla Platelet mean volume (Bld) [Entitic vol] 11.2 fL Normal 9.5-13.5 [facility] Comment on above: Performed By: #### B MP #### [facility] [address] [place] [address] Dr. Maru Disla PLT 232 103/ul Normal 150-450 [facility] Comment on above: Performed By: #### B MP #### [facility] [address] [place] [address] Dr. Maru Disla RBC 5.17 106/ul Normal 4.20-5.40 [facility] Comment on above: Performed By: #### B MP #### [facility] [address] [place] [address] Dr. Maru Disla WBC 19.9 103/ul Critically high 4.0-11.0 [facility] Comment on above: Performed By: #### B MP #### [facility] [address] [place] [address] Dr. Maru Disla POINT OF CARE GLUCOSEon Glucose [Mass/Vol] 199 mg/dL Critically high 74-106 [facility] Comment on above: Performed By: #### P OCGLUC #### [facility] [address] [place] [address] Dr. Maru Disla Glucose [Mass/Vol] 109 mg/dL Critically high -106 [facility] Comment on above: Performed By: #### A BG #### [facility] [address] [place] [address] Dr. Maru Disla Glucose [Mass/Vol] 253 mg/dL Critically high 74-106 [facility] Comment on above: Performed By: #### P OCGLUC #### [facility] [address] [place] [address] Dr. Maru Disla Glucose [Mass/Vol] 194 mg/dL Critically high -106 [facility] Comment on above: Performed By: #### B MP #### [facility] [address] [place] [address] Dr. Maru Disla PROF CHEM 8 (BAS METB)on Anion gap [Moles/Vol] 11.2 mmol/L Normal [facility] Comment on above: Performed By: #### B MP #### [facility] [address] [address] [address] Maru Disla Calcium [Mass/Vol] 8.8 mg/dL Normal 8.5-10.1 [facility] Comment on above: Performed By: #### B MP #### [facility] [address] [address] [address] Maru Disla Chloride [Moles/Vol] 105 mmol/L Normal 98-107 [facility] Comment on above: Performed By: #### B MP #### [facility] [address] [place] [address] Dr. Maru Disla CO2 [Moles/Vol] 26.8 mmol/L Normal 21.0-32.0 [facility] Comment on above: Performed By: #### B MP #### [facility] [address] [address] [address] Maru Disla Creatinine [Mass/Vol] 0.66 mg/dL Normal 0.55-1.02 [facility] Comment on above: Performed By: #### B MP #### [facility] [address] [place] [address] Dr. Maru Disla EGFR-AF CITIZ[place] >60 Normal >=60 [facility] Comment on above: Performed By: #### B MP #### [facility] [address] [place] [address] Dr. Maru Disla EGFR-NON AF CITIZEN OF [place] >60 Normal >=60 [facility] Comment on above: Performed By: #### B MP #### [facility] [address] [address] [address] Maru Disla Glucose [Mass/Vol] 191 mg/dL Critically high 74-106 [facility] Comment on above: Performed By: #### B MP #### [facility] [address] [place] [address] Dr. Maru Disla Potassium [Moles/Vol] 5.0 mmol/L Normal 3.5-5.1 [facility] Comment on above: Performed By: #### B MP #### [facility] [address] [address] [address] Maru Disla Sodium [Moles/Vol] 138 mmol/L Normal 136-145 [facility] Comment on above: Performed By: #### B MP #### [facility] [address] [address] [address] Maru Disla Urea nitrogen [Mass/Vol] 21.0 mg/dL Critically high 7.0-18.0 [facility] Comment on above: Performed By: #### B MP #### [facility] [address] [address] [address] Maru Disla Urea nitrogen/Creatinine [Mass ratio] 31.8 mg/mg Normal [facility] Comment on above: Performed By: #### B MP #### [facility] [address] [address] [address] Maru Disla XR CHEST 2 Von [...] 2022-04-06 07:14 Normal [facility] BLOOD GASES BTYon 04-05-2022 02 MODE NASAL CANNULA Normal [facility] Comment on above: Performed By: #### A BG #### [facility] [address] [address] [address] Maru Disla ALLENS TEST Positive Normal [facility] Comment on above: Performed By: #### A BG #### [facility] [address] [address] [address] Maru Disla Base excess Calc (Bld) [Moles/Vol] -1.6000 mmol/L Normal -2.0-2.0 [facility] Comment on above: Performed By: #### A BG #### [facility] [address] [address] [address] Maru Disla BIPAP PRESSURE [facility] Comment on above: Performed By: #### A BG #### [facility] [address] [place] [address] Dr. Maru Disla CPAP [facility] Comment on above: Performed By: #### A BG #### [facility] [address] [place] [address] Dr. Maru Disla FIO2 [facility] Comment on above: Performed By: #### A BG #### [facility] [address] [place] [address] Dr. Maru Disla HCO3 (Bld) [Moles/Vol] 24.0 mmol/L Normal 22.0-26.0 [facility] Comment on above: Performed By: #### A BG #### [facility] [address] [place] [address] Dr. Maru Disla LPM 2 [facility] Comment on above: Performed By: #### A BG #### [facility] [address] [place] [address] Dr. Maru Disla MINUTE VOLUME [facility] Comment on above: Performed By: #### A BG #### [facility] [address] [place] [address] Dr. Maru Disla Oxygen (Bld) [Partial pressure] 56.1 mm[Hg] Critically low 80.0-100.0 [facility] Comment on above: Performed By: #### A BG #### [facility] [address] [address] [address] Maru Disla Oxygen saturation in Blood 89.9 % Critically low 95.0-100.0 [facility] Comment on above: Performed By: #### A BG #### [facility] [address] [place] [address] Dr. Maru Disla PCO2 43.3 mmHg Normal 35.0-45.0 [facility] Comment on above: Performed By: #### A BG #### [facility] [address] [place] [address] Dr. Maru Disla [facility] Comment on above: Performed By: #### A BG #### [facility] [address] [place] [address] Dr. Maru Disla pH (Bld) 7.352 [pH] Normal 7.350-7.450 [facility] Comment on above: Performed By: #### A BG #### [facility] [address] [place] [address] Dr. Maru Disla [facility] Comment on above: Performed By: #### A BG #### [facility] [address] [place] [address] Dr. Maru Disla [facility] Comment on above: Performed By: #### A BG #### [facility] [address] [place] [address] Dr. Maru Disla PUNCTURE SITE LR [facility] Comment on above: Performed By: #### A BG #### [facility] [address] [place] [address] Dr. Maru Disla [facility] Comment on above: Performed By: #### A BG #### [facility] [address] [place] [address] Dr. Maru Disla [facility] [employer] Comment on above: Performed By: #### A BG #### [facility] [address] [place] [address] Dr. Maru Disla [facility] Comment on above: Performed By: #### A BG #### [facility] [address] [place] [address] Dr. Maru Disla BNPon 04-05-2022 Natriuretic peptide B (Bld) [Mass/Vol] 471.0 pg/mL Normal <=900.0 [facility] Comment on above: Performed By: #### P OCGLUC #### [facility] [address] [place] [address] Dr. Maru Disla CBC AUTO DIFFon 04-05-2022 BASO # 0.0 103/ul Normal 0.0-0.1 [facility] Comment on above: Performed By: #### B MP #### [facility] [address] [address] [address] Maru Disla Basophils/100 WBC (Bld) 0.3 % Normal 0.2-2.0 [facility] Comment on above: Performed By: #### B MP #### [facility] [address] [address] [address] Maur Disla EO # 0.0 103/ul Normal 0.0-0.7 [facility] Comment on above: Performed By: #### B MP #### [facility] [address] [place] [address] Dr. Maru Disla Eosinophils/100 WBC (Bld) 0.0 % Critically low 0.9-7.0 [facility] Comment on above: Performed By: #### B MP #### [facility] [address] [place] [address] Dr. Maru Disla Erythrocyte distribution width (RBC) [Ratio] 13.2 % Normal 11.0-15.0 [facility] Comment on above: Performed By: #### B MP #### [facility] [address] [place] [address] Dr. Maru Disla Hematocrit (Bld) [Volume fraction] 52.3 % Critically high 36.0-48.0 [facility] Comment on above: Performed By: #### B MP #### [facility] [address] [place] [address] Dr. Maru Disla Hemoglobin (Bld) [Mass/Vol] 16.6 g/dL Critically high 12.0-16.0 [facility] Comment on above: Performed By: #### B MP #### [facility] [address] [place] [address] Dr. Maru Disla IG # 0.05 10e3/ul Critically high 0.00-0.03 [facility] Comment on above: Performed By: #### B MP #### [facility] [address] [place] [address] Dr. Maru Disla IG % 0.4 % Normal 0.0-0.5 [facility] Comment on above: Performed By: #### B MP #### [facility] [address] [place] [address] Dr. Maru Disla LYMPH # 1.5 103/ul Normal 1.2-3.8 [facility] Comment on above: Performed By: #### B MP #### [facility] [address] [place] [address] Dr. Maru Disla Lymphocytes/100 WBC (Bld) 10.7 % Critically low 20.5-60.0 [facility] Comment on above: Performed By: #### B MP #### [facility] [address] [place] [address] Dr. Maru Disla MANUAL DIFF REQ NO Normal [facility] Comment on above: Performed By: #### B MP #### [facility] [address] [place] [address] Dr. Maru Disla MCH (RBC) [Entitic mass] 29.7 pg Normal 26.7-34.0 [facility] Comment on above: Performed By: #### B MP #### [facility] [address] [place] [address] Dr. Maru Disla MCHC (RBC) [Mass/Vol] 31.7 g/dL Normal 29.9-35.2 [facility] Comment on above: Performed By: #### B MP #### [facility] [address] [place] [address] Dr. Maru Disla MCV (RBC) [Entitic vol] 93.6 fL Normal 81.0-99.0 [facility] Comment on above: Performed By: #### B MP #### [facility] [address] [place] [address] Dr. Maru Disla MONO # 1.5 103/ul Critically high 0.3-0.8 [facility] Comment on above: Performed By: #### B MP #### [facility] [address] [place] [address] Dr. Maru Disla Monocytes/100 WBC (Bld) 11.0 % Normal 1.7-12.0 [facility] Comment on above: Performed By: #### B MP #### [facility] [address] [place] [address] Dr. Maru Disla NEUT # 10.8 103/ul Critically high 1.4-6.5 [facility] Comment on above: Performed By: #### B MP #### [facility] [address] [place] [address] Dr. Maru Disla Neutrophils/100 WBC (Bld) 77.6 % Critically high 43.0-75.0 [facility] Comment on above: Performed By: #### B MP #### [facility] [address] [place] [address] Dr. Maru Disla Platelet mean volume (Bld) [Entitic vol] 10.1 fL Normal 9.5-13.5 [facility] Comment on above: Performed By: #### B MP #### [facility] [address] [place] [address] Dr. Maru Disla PLT 315 103/ul Normal 150-450 [facility] Comment on above: Performed By: #### B MP #### [facility] [address] [place] [address] Dr. Maru Disla RBC 5.59 106/ul Critically high 4.20-5.40 [facility] Comment on above: Performed By: #### B MP #### [facility] [address] [place] [address] Dr. Maru Disla WBC 13.9 103/ul Critically high 4.0-11.0 [facility] Comment on above: Performed By: #### B MP #### [facility] [address] [place] [address] Dr. Maru Disla CULTURE BLOODon 04-05-2022 Microscopic examination of blood, culture Culture Observations: NO GROWTH AT 5 DAYS. Normal [facility] Comment on above: Performed By: #### B MP #### [facility] [address] [place] [address] Dr. Maru Disla Covid-19 PCR (CVDTB)on SARS-CoV-2 (COVID-19) RNA NICOLETTE+probe Ql (Unsp spec) Not detected Normal NOT DETECTED [facility] Comment on above: Result Comment: [...] for this test is supported by the [employer] Worker of Health and Human Service's declaration that [...] #### M ALBR #### [facility] [address] [place] [address] Dr. Maru Disla INFLUENZA A AND B AGon 04-05 INFLUENZA A AG Negative Normal NEGATIVE SEE COMMENT [facility] Comment on above: Performed By: #### P OCGLUC #### [facility] [address] [place] [address] Dr. Maru Disla INFLUENZA B AG Negative Normal NEGATIVE SEE COMMENT [facility] Comment on above: Performed By: #### P OCGLUC #### [facility] [address] [place] [address] Dr. Maru Disla INTERNAL CONTROLS Within Normal Limits Normal Wi thin Normal Limits [facility] Comment on above: Performed By: #### P OCGLUC #### [facility] [address] [place] [address] Dr. Maru Disla LACTATE/LACTIC ACIDon 2021 Lactate [Moles/Vol] 3.1 mmol/L Critically high 0.4-1.9 [facility] Comment on above: Performed By: #### L ACT #### [facility] [address] [place], [place] [id number] Dr. Maru Disla Lactate [Moles/Vol] 3.1 mmol/L Critically high 0.4-1.9 [facility] Comment on above: Performed By: #### B MP #### [facility] [address] [place] [address] Dr. Maru Disla POINT OF CARE GLUCOSEon 110 Glucose [Mass/Vol] 290 mg/dL Critically high [address] [place] [address] Comment on above: Performed By: #### M ALBR #### [facility] [address] [place] [address] Dr. Maru Disla Glucose [Mass/Vol] 309 mg/dL Critically high [address] [place] [address] Comment on above: Performed By: #### A BG #### [facility] [address] [place] [address] Dr. Maru Disla Glucose [Mass/Vol] 289 mg/dL Critically high [address] [place] [address] Comment on above: Performed By: #### P OCGLUC #### [facility] [address] [place] [address] Dr. Maru Disla Glucose [Mass/Vol] 325 mg/dL Critically high [address] [place] [address] Comment on above: Performed By: #### M ALBR #### [facility] [address] [place] [address] Dr. Maru Disla PROF 14(COMP METB)on 022 Albumin [Mass/Vol] 3.3 g/dL Critically low 3.4-5.0 [facility] Comment on above: Performed By: #### P OCGLUC #### [facility] [address] [place] [address] Dr. Maru Disla Albumin/Globulin [Mass ratio] 0.7 {ratio} Normal [facility] Comment on above: Performed By: #### P OCGLUC #### [facility] [address] [place] [address] Dr. Maru Disla ALP [Catalytic activity/Vol] 105 U/L Normal 46-116 [facility] Comment on above: Performed By: #### P OCGLUC #### [facility] [address] [address] [address] Maru Disla ALT [Catalytic activity/Vol] 15 U/L Normal 14-59 [facility] Comment on above: Performed By: #### P OCGLUC #### [facility] [address] [address] [address] Maru Disla Anion gap [Moles/Vol] 13.2 mmol/L Normal [facility] Comment on above: Performed By: #### P OCGLUC #### [facility] [address] [address] [address] Maru Disla AST [Catalytic activity/Vol] 12 U/L Critically low 15-37 [facility] Comment on above: Performed By: #### P OCGLUC #### [facility] [address] [address] [address] Maru Disla Bilirubin [Mass/Vol] 0.4 mg/dL Normal 0.2-1.0 [facility] Comment on above: Performed By: #### P OCGLUC #### [facility] [address] [address] [address] Maru Disla Calcium [Mass/Vol] 8.8 mg/dL Normal 8.5-10.1 [facility] Comment on above: Performed By: #### P OCGLUC #### [facility] [address] [address] [address] Maru Disla Chloride [Moles/Vol] 101 mmol/L Normal 98-107 [facility] Comment on above: Performed By: #### P OCGLUC #### [facility] [address] [address] [address] Maru Disla CO2 [Moles/Vol] 26.0 mmol/L Normal 21.0-32.0 [facility] Comment on above: Performed By: #### P OCGLUC #### [facility] [address] [address] [address] Maru Dilsa Creatinine [Mass/Vol] 1.03 mg/dL Critically high 0.55-1.02 [facility] Comment on above: Performed By: #### P OCGLUC #### [facility] [address] [address] [address] Maru Disla EGFR-AF CITIZEN OF THE [place] >60 Normal >=60 [facility] Comment on above: Performed By: #### P OCGLUC #### [facility] [address] [address] [address] Maru Disla EGFR-NON AF CITIZEN OF [place] 54 mL/min/1.73m2 Critically low >=60 [facility] Comment on above: Performed By: #### P OCGLUC #### [facility] [address] [address] [address] Maru Disla Globulin (S) [Mass/Vol] 4.5 g/dL Normal [facility] Comment on above: Performed By: #### P OCGLUC #### [facility] [address] [address] [address] Maru Disla Glucose [Mass/Vol] 264 mg/dL Critically high 74-106 [facility] Comment on above: Performed By: #### P OCGLUC #### [facility] [address] [address] [address] Maru Disla Potassium [Moles/Vol] 4.2 mmol/L Normal 3.5-5.1 [facility] Comment on above: Performed By: #### P OCGLUC #### [facility] [address] [address] [address] Maru Disla Protein [Mass/Vol] 7.8 g/dL Normal 6.4-8.2 [facility] Comment on above: Performed By: #### P OCGLUC #### [facility] [address] [address] [address] Maru Disla Sodium [Moles/Vol] 136 mmol/L Normal 136-145 [facility] Comment on above: Performed By: #### P OCGLUC #### [facility] [address] [address] [address] Maru Disla Urea nitrogen [Mass/Vol] 14.0 mg/dL Normal 7.0-18.0 [facility] Comment on above: Performed By: #### P OCGLUC #### [facility] [address] [address] [address] Maru Disla Urea nitrogen/Creatinine [Mass ratio] 13.6 mg/mg Normal [facility] Comment on above: Performed By: #### P OCGLUC #### [facility] [address] [place] [address] Dr. Maru Disla TROPONIN, HIGH SENSITIVITYon 04-05-2022 HSTROP 10.5 pg/mL Normal 4.0-51.3 [facility] Comment on above: Result Comment: CUT- OFF POINTS HAVE BEEN ESTABLISHED BASED ON THE FOURTH UNIVERSAL DEFINITIONS OF MYOCARDIAL INFARCTION. THE UPPER REFERENCE LIMIT (URL) OF TROPONIN, DEFINED THE 99TH PERCENTILE OF cTnI DISTRIBUTION IN A REFERENCE POPULATION, HAS BEEN CONFIRMED THE DECISION THRESHOLD FOR [place] DIAGNOSIS. Performed By: #### A BG #### [facility] [address] [place] [address] Dr. Maru Disla XR CHEST 1 Von [...] by: YECENIA MONTERO Date: 2022-04-05 06:51 Normal [facility] Vital Signs Date Time Vital Sign Value Performing Clinician Facility 12-14-2024 11:31-0400 Body mass index (BMI) [Ratio] 26.95 kg/m2 Maira Rush [employer]ITT[employer] MACHINE OPERATOR Work Phone: [facility] 12-14-2024 11:31-0400 Body temperature 98.1 [degF] Maira Rush [employer]HEL [employer]ITTING MACHINE OPERATOR Work Phone: [facility] 12-14-2024 11:31-0400 Body weight 75.75 kg Maira Rush [employer]ITT[employer] MACHINE OPERATOR Work Phone: [facility] 12-14-2024 11:31-0400 Diastolic blood pressure 80 mm[Hg] Maira Rush [employer]ASCHEL K[employer]ITTING MACHINE OPERATOR Work Phone: [facility] 12-14-2024 11:31-0400 Heart rate 93 /min Maira Aichholz [employer]ITT[employer] MACHINE OPERATOR Work Phone: [facility] 12-14-2024 11:31-0400 Respiratory rate 22 /min Maira Aichholz [employer]HEL K[employer]ITTING MACHINE OPERATOR Work Phone: [facility] 12-14-2024 11:31-0400 SaO2% (BldA) [Mass fraction] 93 % Maira Aichholz [employer]ITT[employer] MACHINE OPERATOR Work Phone: [facility] 12-14-2024 11:31-0400 Systolic blood pressure 122 mm[Hg] Maira Aichholz [employer]HEL [employer]ITTING MACHINE OPERATOR Work Phone: [facility] 12-01-2024 13:49-0400 Body mass index (BMI) [Ratio] 27.73 kg/m2 Maira Aichholz [employer]ITT[employer] MACHINE OPERATOR Work Phone: [facility] 12-01-2024 13:49-0400 Body temperature 98.29 [degF] Maira Aichholz [employer]HEL K[employer]ITTING MACHINE OPERATOR Work Phone: [facility] 12-01-2024 13:49-0400 Body weight 77.93 kg Maira Aichholz [employer]HEL K[employer]ITTING MACHINE OPERATOR Work Phone: [facility] 12-01-2024 13:49-0400 Diastolic blood pressure 70 mm[Hg] Maira Aichholz [employer]ASCHEL K[employer]ITTING MACHINE OPERATOR Work Phone: [facility] 12-01-2024 13:49-0400 Heart rate 101 /min Maira Aichholz [employer]ASCHEL KNITTING MACHINE OPERATOR Work Phone: [facility] 12-01-2024 13:49-0400 Respiratory rate 18 /min Maira Aichholz [employer]HEL KNITTING MACHINE OPERATOR Work Phone: [facility] 12-01-2024 13:49-0400 SaO2% (BldA) [Mass fraction] 95 % Maira Aichholz [employer]HEL K[employer]ITTING MACHINE OPERATOR Work Phone: [facility] 12-01-2024 13:49-0400 Systolic blood pressure 110 mm[Hg] Maira Aichholz [employer]ASCHEL KNITTING MACHINE OPERATOR Work Phone: [facility] 10-14-2024 14:25-0400 Body mass index (BMI) [Ratio] 30.38 kg/m2 Maira Lainezz [employer]ASCHEL K[employer]ITTING MACHINE OPERATOR Work Phone: [facility] 10-14-2024 14:25-0400 Body temperature 98.1 [degF] Maira Lainezz [employer]ASCHEL KNITTING MACHINE OPERATOR Work Phone: [facility] 10-14-2024 14:25-0400 Body weight 85.37 kg Maira Lainezz [employer]HEL K[employer]ITTING MACHINE OPERATOR Work Phone: [facility] 10-14-2024 14:25-0400 Diastolic blood pressure 76 mm[Hg] Maira Nettlesvaz [employer]ASCHEL K[employer]ITTING MACHINE OPERATOR Work Phone: [facility] 10-14-2024 14:25-0400 Heart rate 87 /min Maira Escuderodutchz [employer]ASCHEL KNITTING MACHINE OPERATOR Work Phone: [facility] 10-14-2024 14:25-0400 Respiratory rate 22 /min Maira Lainezz [employer]HEL KNITTING MACHINE OPERATOR Work Phone: [facility] 10-14-2024 14:25-0400 SaO2% (BldA) [Mass fraction] 94 % Maira Nettlesvaz [employer]ASCHEL KNITTING MACHINE OPERATOR Work Phone: [facility] 10-14-2024 14:25-0400 Systolic blood pressure 108 mm[Hg] Maira Escuderodutchz [employer]ASCHEL KNITTING MACHINE OPERATOR Work Phone: [facility] 08-06-2024 09:29-0500 Body height 167.6 cm Maira Lainezz [employer]ASCHEL K[employer]ITTING MACHINE OPERATOR Work Phone: [facility] 08-06-2024 09:29-0500 Body mass index (BMI) [Ratio] 33.86 kg/m2 Mairatessa Nettlesholz [employer]ASCHEL K[employer]ITTING MACHINE OPERATOR Work Phone: [facility] 08-06-2024 09:29-0500 Body temperature 98.49 [degF] Maira Escuderodutchz [employer]ASCHEL KNITTING MACHINE OPERATOR Work Phone: [facility] 08-06-2024 09:29-0500 Body weight 95.17 kg Maira Lainezz [employer]ASCHEL KNITTING MACHINE OPERATOR Work Phone: [facility] 08-06-2024 09:29-0500 Diastolic blood pressure 84 mm[Hg] Maira Yoonholz [employer]ASCHEL KNITTING MACHINE OPERATOR Work Phone: [facility] 08-06-2024 09:29-0500 Heart rate 78 /min Mairatessa Nettlesholz [employer]ASCHEL KNITTING MACHINE OPERATOR Work Phone: [facility] 08-06-2024 09:29-0500 Respiratory rate 20 /min Mairatessa Nettlesholz [employer]ASCHEL KNITTING MACHINE OPERATOR Work Phone: [facility] 08-06-2024 09:29-0500 SaO2% (BldA) [Mass fraction] 93 % Maira Lainezz [employer]ASCHEL KNITTING MACHINE OPERATOR Work Phone: [facility] 08-06-2024 09:29-0500 Systolic blood pressure 140 mm[Hg] Maira Nettlesholz [employer]ASCHEL KNITTING MACHINE OPERATOR Work Phone: [facility] 06-09-2024 10:59-0500 Body height 167.6 cm Mairatessa Nettlesholz [employer]ASCHEL KNITTING MACHINE OPERATOR Work Phone: [facility] 06-09-2024 10:59-0500 Body mass index (BMI) [Ratio] 33.86 kg/m2 Mairatessa Nettlesholz [employer]ASCHEL KNITTING MACHINE OPERATOR Work Phone: [facility] 06-09-2024 10:59-0500 Body temperature 97.59 [degF] Maira Nettlesholz RASCHEL KNITTING MACHINE OPERATOR Work Phone: [facility] 06-09-2024 10:59-0500 Body weight 95.17 kg Mairatessa Nettlesholz [employer]ASCHEL KNITTING MACHINE OPERATOR Work Phone: [facility] Comment on above: steel toe boots on 06-09-2024 10:59-0500 Diastolic blood pressure 68 mm[Hg] Maira Nettlesholz RASCHEL KNITTING MACHINE OPERATOR Work Phone: [facility] 06-09-2024 10:59-0500 Heart rate 77 /min Mairatessa Nettlesholz [employer]ASCHEL KNITTING MACHINE OPERATOR Work Phone: [facility] 06-09-2024 10:59-0500 Respiratory rate 22 /min Maira Kenahholz [employer]ASCHEL KNITTING MACHINE OPERATOR Work Phone: [facility] 06-09-2024 10:59-0500 SaO2% (BldA) [Mass fraction] 94 % Maira Kenahholz [employer]ASCHEL KNITTING MACHINE OPERATOR Work Phone: [facility] 06-09-2024 10:59-0500 Systolic blood pressure 118 mm[Hg] Maira Aichholz RASCHEL KNITTING MACHINE OPERATOR Work Phone: [facility] 05-28-2024 11:24-0500 Body height 167.6 cm Maira Aichholz [employer]ASCHEL KNITTING MACHINE OPERATOR Work Phone: [facility] 05-28-2024 11:24-0500 Body mass index (BMI) [Ratio] 32.83 kg/m2 Maira Aichholz [employer]HEL K[employer]ITTING MACHINE OPERATOR Work Phone: [facility] 05-28-2024 11:24-0500 Body temperature 98.1 [degF] Maira Kenahholz RASCHEL KNITTING MACHINE OPERATOR Work Phone: [facility] 05-28-2024 11:24-0500 Body weight 92.26 kg Maira Aichholz [employer]HEL K[employer]ITTING MACHINE OPERATOR Work Phone: [facility] 05-28-2024 11:24-0500 Diastolic blood pressure 66 mm[Hg] Maira Kenahholz [employer]ASCHEL KNITTING MACHINE OPERATOR Work Phone: [facility] 05-28-2024 11:24-0500 Heart rate 73 /min Maira Aichholz [employer]ASCHEL KNITTING MACHINE OPERATOR Work Phone: [facility] 05-28-2024 11:24-0500 Respiratory rate 22 /min Maira Aichholz RASCHEL KNITTING MACHINE OPERATOR Work Phone: [facility] 05-28-2024 11:24-0500 SaO2% (BldA) [Mass fraction] 92 % Maira Aichholz [employer]ASCHEL KNITTING MACHINE OPERATOR Work Phone: [facility] 05-28-2024 11:24-0500 Systolic blood pressure 110 mm[Hg] Maira Aichholz RASCHEL KNITTING MACHINE OPERATOR Work Phone: [facility] 05-19-2024 14:16-0500 Body height 167.6 cm Maira Aichholz RASCHEL KNITTING MACHINE OPERATOR Work Phone: [facility] 05-19-2024 14:16-0500 Body mass index (BMI) [Ratio] 33.77 kg/m2 Maira Aichholz [employer]ASCHEL KNITTING MACHINE OPERATOR Work Phone: [facility] 05-19-2024 14:16-0500 Body temperature 98.71 [degF] Maira Aichholz RASCHEL KNITTING MACHINE OPERATOR Work Phone: [facility] 05-19-2024 14:16-0500 Body weight 94.89 kg Maira Aichholz [employer]ASCHEL K[employer]ITTING MACHINE OPERATOR Work Phone: [facility] 05-19-2024 14:16-0500 Diastolic blood pressure 66 mm[Hg] Maira Aichholz RASCHEL KNITTING MACHINE OPERATOR Work Phone: [facility] 05-19-2024 14:16-0500 Heart rate 71 /min Maira Aichholz RASCHEL KNITTING MACHINE OPERATOR Work Phone: [facility] 05-19-2024 14:16-0500 Respiratory rate 18 /min Maira Aichholz RASCHEL KNITTING MACHINE OPERATOR Work Phone: [facility] 05-19-2024 14:16-0500 SaO2% (BldA) [Mass fraction] 93 % Maira Aichholz RASCHEL KNITTING MACHINE OPERATOR Work Phone: [facility] 05-19-2024 14:16-0500 Systolic blood pressure 120 mm[Hg] Maira Aichholz RASCHEL KNITTING MACHINE OPERATOR Work Phone: [facility] 05-06-2024 13:32-0500 Body height 167.6 cm Maira Aichholz RASCHEL KNITTING MACHINE OPERATOR Work Phone: [facility] 05-06-2024 13:32-0500 Body mass index (BMI) [Ratio] 33.77 kg/m2 Maira Aichholz RASCHEL KNITTING MACHINE OPERATOR Work Phone: [facility] 05-06-2024 13:32-0500 Body temperature 97.81 [degF] Maira Aichholz RASCHEL KNITTING MACHINE OPERATOR Work Phone: [facility] 05-06-2024 13:32-0500 Body weight 94.89 kg Maira Kenahholz [employer]ASCHEL KNITTING MACHINE OPERATOR Work Phone: [facility] 05-06-2024 13:32-0500 Diastolic blood pressure 76 mm[Hg] Maira Aichholz RASCHEL KNITTING MACHINE OPERATOR Work Phone: [facility] 05-06-2024 13:32-0500 Heart rate 73 /min Maira Aichholz RASCHEL KNITTING MACHINE OPERATOR Work Phone: [facility] 05-06-2024 13:32-0500 SaO2% (BldA) [Mass fraction] 97 % Maira Kenahholz RASCHEL KNITTING MACHINE OPERATOR Work Phone: [facility] 05-06-2024 13:32-0500 Systolic blood pressure 138 mm[Hg] Maira Aichholz [employer]ASCHEL KNITTING MACHINE OPERATOR Work Phone: [facility] 04-22-2024 09:23-0500 Body height 167.6 cm Maira Kenahholz [employer]ASCHEL KNITTING MACHINE OPERATOR Work Phone: [facility] 04-22-2024 09:23-0500 Body mass index (BMI) [Ratio] 32.44 kg/m2 Maira Aichholz [employer]ASCHEL KNITTING MACHINE OPERATOR Work Phone: [facility] 04-22-2024 09:23-0500 Body temperature 98.1 [degF] Maira Kenahholz RASCHEL KNITTING MACHINE OPERATOR Work Phone: [facility] 04-22-2024 09:23-0500 Body weight 91.17 kg Maira Kenahholz RASCHEL KNITTING MACHINE OPERATOR Work Phone: [facility] 04-22-2024 09:23-0500 Diastolic blood pressure 78 mm[Hg] Maira Aichholz RASCHEL KNITTING MACHINE OPERATOR Work Phone: [facility] 04-22-2024 09:23-0500 Heart rate 68 /min Maira Aichholz RASCHEL KNITTING MACHINE OPERATOR Work Phone: [facility] 04-22-2024 09:23-0500 Respiratory rate 20 /min Maira Victor Manuel RASCHEL KNITTING MACHINE OPERATOR Work Phone: [facility] 04-22-2024 09:23-0500 SaO2% (BldA) [Mass fraction] 95 % Maira Victor Manuel RASCHEL KNITTING MACHINE OPERATOR Work Phone: [facility] 04-22-2024 09:23-0500 Systolic blood pressure 122 mm[Hg] Maira Victor Manuel RASCHEL KNITTING MACHINE OPERATOR Work Phone: [facility] 04-21-2024 14:21-0500 Body height 167.6 cm Felton Allison MD Work Phone: [facility] 04-21-2024 14:21-0500 Body mass index (BMI) [Ratio] 33.09 kg/m2 Felton Allison MD Work Phone: [facility] 04-21-2024 14:21-0500 Body weight 92.99 kg Felton Allison MD Work Phone: [facility] 04-21-2024 14:21-0500 Diastolic blood pressure 72 mm[Hg] Felton Allison MD Work Phone: [facility] 04-21-2024 14:21-0500 Heart rate 77 /min Felton Allison MD Work Phone: [facility] 04-21-2024 14:21-0500 Respiratory rate 18 /min Felton Allison MD Work Phone: [facility] 04-21-2024 14:21-0500 Systolic blood pressure 112 mm[Hg] Felton Allison MD Work Phone: [facility] 03-11-2024 10:25-0400 Body height 167.6 cm Maira Victor Manuel RASCHEL KNITTING MACHINE OPERATOR Work Phone: [facility] 03-11-2024 10:25-0400 Body mass index (BMI) [Ratio] 33.28 kg/m2 Maira Rush RASCHEL KNITTING MACHINE OPERATOR Work Phone: [facility] 03-11-2024 10:25-0400 Body temperature 98.1 [degF] Maira Aichholz RASCHEL KNITTING MACHINE OPERATOR Work Phone: [facility] 03-11-2024 10:25-0400 Body weight 93.53 kg Maira Aichholz RASCHEL KNITTING MACHINE OPERATOR Work Phone: [facility] 03-11-2024 10:25-0400 Diastolic blood pressure 80 mm[Hg] Maira Aichholz RASCHEL KNITTING MACHINE OPERATOR Work Phone: [facility] 03-11-2024 10:25-0400 Heart rate 71 /min Maira Aichholz RASCHEL KNITTING MACHINE OPERATOR Work Phone: [facility] 03-11-2024 10:25-0400 Respiratory rate 18 /min Maira Aichholz RASCHEL KNITTING MACHINE OPERATOR Work Phone: [facility] 03-11-2024 10:25-0400 SaO2% (BldA) [Mass fraction] 96 % Maira Aichholz RASCHEL KNITTING MACHINE OPERATOR Work Phone: [facility] 03-11-2024 10:25-0400 Systolic blood pressure 122 mm[Hg] Maira Aichholz RASCHEL KNITTING MACHINE OPERATOR Work Phone: [facility] 02-25-2024 10:56-0400 Body height 167.6 cm Maira Aichholz RASCHEL KNITTING MACHINE OPERATOR Work Phone: [facility] 02-25-2024 10:56-0400 Body mass index (BMI) [Ratio] 33.51 kg/m2 Maira Aichholz RASCHEL KNITTING MACHINE OPERATOR Work Phone: [facility] 02-25-2024 10:56-0400 Body temperature 98.1 [degF] Maira Aichholz RASCHEL KNITTING MACHINE OPERATOR Work Phone: [facility] 02-25-2024 10:56-0400 Body weight 94.17 kg Maira Aichholz RASCHEL KNITTING MACHINE OPERATOR Work Phone: [facility] 02-25-2024 10:56-0400 Diastolic blood pressure 76 mm[Hg] Maira Aichholz RASCHEL KNITTING MACHINE OPERATOR Work Phone: [facility] 02-25-2024 10:56-0400 Heart rate 77 /min Maira Yoonholz RASCHEL KNITTING MACHINE OPERATOR Work Phone: [facility] 02-25-2024 10:56-0400 Respiratory rate 19 /min Maira Kenahholz RASCHEL KNITTING MACHINE OPERATOR Work Phone: [facility] 02-25-2024 10:56-0400 SaO2% (BldA) [Mass fraction] 97 % Maira Kenahholz RASCHEL KNITTING MACHINE OPERATOR Work Phone: [facility] 02-25-2024 10:56-0400 Systolic blood pressure 122 mm[Hg] Maira Aichholz RASCHEL KNITTING MACHINE OPERATOR Work Phone: [facility] 02-17-2024 11:07-0400 Body height 167.6 cm Maira Kenahholz RASCHEL KNITTING MACHINE OPERATOR Work Phone: [facility] 02-17-2024 11:07-0400 Body mass index (BMI) [Ratio] 34.19 kg/m2 Maira Kenahholz RASCHEL KNITTING MACHINE OPERATOR Work Phone: [facility] 02-17-2024 11:07-0400 Body temperature 98.49 [degF] Maira Aichholz RASCHEL KNITTING MACHINE OPERATOR Work Phone: [facility] 02-17-2024 11:07-0400 Body weight 96.07 kg Maira Kenahholz RASCHEL KNITTING MACHINE OPERATOR Work Phone: [facility] 02-17-2024 11:07-0400 Diastolic blood pressure 82 mm[Hg] Maira Kenahholz RASCHEL KNITTING MACHINE OPERATOR Work Phone: [facility] 02-17-2024 11:07-0400 Heart rate 78 /min Maira Aichholz RASCHEL KNITTING MACHINE OPERATOR Work Phone: [facility] 02-17-2024 11:07-0400 Respiratory rate 19 /min Maiar Aichholz RASCHEL KNITTING MACHINE OPERATOR Work Phone: [facility] 02-17-2024 11:07-0400 SaO2% (BldA) [Mass fraction] 98 % Maira Aichholz RASCHEL KNITTING MACHINE OPERATOR Work Phone: [facility] 02-17-2024 11:07-0400 Systolic blood pressure 118 mm[Hg] Maira Lainezz RASCHEL KNITTING MACHINE OPERATOR Work Phone: [facility] 07-18-2023 14:27-0500 Body height 167.6 cm Maira Lainezz RASCHEL KNITTING MACHINE OPERATOR Work Phone: [facility] 07-18-2023 14:27-0500 Body mass index (BMI) [Ratio] 38.29 kg/m2 Mairatessa Nettlesholz RASCHEL KNITTING MACHINE OPERATOR Work Phone: [facility] 07-18-2023 14:27-0500 Body temperature 98.01 [degF] Mairatessa Nettlesholz RASCHEL KNITTING MACHINE OPERATOR Work Phone: [facility] 07-18-2023 14:27-0500 Body weight 107.59 kg Maira Lainezz RASCHEL KNITTING MACHINE OPERATOR Work Phone: [facility] 07-18-2023 14:27-0500 Diastolic blood pressure 78 mm[Hg] Maira Yoonholz RASCHEL KNITTING MACHINE OPERATOR Work Phone: [facility] 07-18-2023 14:27-0500 Heart rate 79 /min Maira Kenahholz RASCHEL KNITTING MACHINE OPERATOR Work Phone: [facility] 07-18-2023 14:27-0500 Respiratory rate 19 /min Mairatessa Nettlesholz RASCHEL KNITTING MACHINE OPERATOR Work Phone: [facility] 07-18-2023 14:27-0500 SaO2% (BldA) [Mass fraction] 97 % Mairatessa Nettlesholz RASCHEL KNITTING MACHINE OPERATOR Work Phone: [facility] 07-18-2023 14:27-0500 Systolic blood pressure 142 mm[Hg] Maira Kenahholz RASCHEL KNITTING MACHINE OPERATOR Work Phone: [facility] Encounters Encounter Date Encounter Type Care Provider Facility Start: 01-08-2025 End: 01-08-2025 Bamboo marlee Medina RN [facility] Patient [facility] Start: 01-08-2025 End: 01-08-2025 Bamboo flowsrubin Medina RN [facility] Start: 12-14-2024 End: 12-14-2024 Bamboo flowsheet Maira Aichholz RASCHEL KNITTING MACHINE OPERATOR Work Phone: [facility] Start: 12-14-2024 End: 12-14-2024 Bamboo flowsheet Maira Aichholz RASCHEL KNITTING MACHINE OPERATOR Work Phone: [facility] Start: 12-14-2024 End: 12-14-2024 Office outpatient visit 25 minutes Maira Aichholz RASCHEL KNITTING MACHINE OPERATOR Work Phone: [facility] Comment on above: Type 2 diabetes gayatri itus without complication, with long-term current use of insulin (HCC) (Primary Dx); Gill rash of groin; Cigarette nicotine dependence without complication; Urge and stress incontinence; Primary hypertension ; Paroxysmal atrial fibrillation (HCC); Medical non-compliance Start: 12-14-2024 End: 12-14-2024 Refill Maira Aichholz RASCHEL KNITTING MACHINE OPERATOR Work Phone: [facility] Comment on above: 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 Start: 12-01-2024 End: 12-01-2024 Bamboo flowsheet Maira Aichholz RASCHEL KNITTING MACHINE OPERATOR Work Phone: [facility] Start: 12-01-2024 End: 12-01-2024 Bamboo flowsheet Maira Aichholz RASCHEL KNITTING MACHINE OPERATOR Work Phone: [facility] Start: 12-01-2024 End: 12-01-2024 ambulatory MAIRA AICHHOLZ Not Available Start: 12-01-2024 End: 12-01-2024 Office outpatient visit 25 minutes Maira Aichholz RASCHEL KNITTING MACHINE OPERATOR Work Phone: [facility] Comment on above: Gill infection of genital region (Primary Dx); Type 2 diabetes mellitus without complication, with long-term current use of insulin (HCC); Gill rash of groin; Abscess of left groin Start: 11-25-2024 End: 11-25-2024 Orders Only Maira Aichholz RASCHEL KNITTING MACHINE OPERATOR Work Phone: [facility] Comment on above: Primary hypertension (Primary Dx) Start: 11-17-2024 End: 11-18-2024 Refill Maira Kenahholz RASCHEL KNITTING MACHINE OPERATOR Work Phone: [facility] Comment on above: COPD mixed type (HCC ) Start: 10-16-2024 End: 10-16-2024 Orders Only Maira Aichholz RASCHEL KNITTING MACHINE OPERATOR Work Phone: [facility] Comment on above: Type 2 diabetes gayatri itus without complication, with long-term current use of insulin (Primary Dx); Obesity (BMI 30-39.9); Abscess of left groin Start: 10-14-2024 End: 10-14-2024 ambulatory MAIRA AICHHOLZ Not Available Start: 10-14-2024 End: 10-14-2024 Office outpatient visit 25 minutes Maira Fatouz RASCHEL KNITTING MACHINE OPERATOR Work Phone: [facility] Comment on above: Abscess of left groi n (Primary Dx); Primary hypertension (CMS/HCC); Type 2 diabetes mellitus without complication, with long-term current use of insulin; Cigarette nicotine dependence without complication; Encounter for screening mammogram for malignant neoplasm of breast; Gill rash of groin; Mild episode of recurrent major depressive disorder (HCC) (CMS/HCC) Start: 10-14-2024 End: 10-14-2024 Bamboo flowsheet Maira Fatouz RASCHEL KNITTING MACHINE OPERATOR Work Phone: [facility] Start: 10-14-2024 End: 10-14-2024 Bamboo flowsheet Maira Aichvaz RASCHEL KNITTING MACHINE OPERATOR Work Phone: [facility] Start: 10-06-2024 End: 10-06-2024 Orders Only Brandon Mcfarlane MD Work Phone: [facility] Comment on above: Abscess of left groi n Start: 10-05-2024 End: 10-05-2024 Orders Only Brandon Mcfarlane MD Work Phone: [facility] Comment on above: Abscess of left groi n (Primary Dx) Start: 10-04-2024 End: 10-06-2024 Clinisync Result Encounter Generic External Data Provider [facility] External Department Unsolicited Start: 10-04-2024 End: 10-06-2024 Clinisync Result Encounter Generic External Data Provider [facility] External Department Unsolicited Start: 09-21-2024 End: 09-21-2024 Refill Maira Victor Manuel RASCHEL KNITTING MACHINE OPERATOR Work Phone: [facility] Comment on above: JORDAN (generalized anx iety disorder) (CMS/HCC); Mild episode of recurrent major depressive disorder (HCC) ([facility]/HCC) Start: 09-18-2024 End: 09-20-2024 Refill Maira Victor Manuel RASCHEL KNITTING MACHINE OPERATOR Work Phone: [facility] Comment on above: COPD mixed type (CMS /HCC) Start: 08-25-2024 End: 08-26-2024 Refill Felton Allison MD Work Phone: [facility] Comment on above: Type 2 diabetes gayatri itus with hyperglycemia, with long-term current use of insulin (CMS/HCC) (Primary Dx) Hypokalemia (Primary Dx); COPD mixed type ([facility]/HCC); Osteoporosis, unspecified osteoporosis type, unspecified pathological fracture presence ([facility]/HCC) Start: 08-06-2024 End: 08-06-2024 Bamboo flowsheet Maira Rush RASCHEL KNITTING MACHINE OPERATOR Work Phone: [facility] Start: 08-06-2024 End: 08-06-2024 Bamboo flowsheet Maira Rush RASCHEL KNITTING MACHINE OPERATOR Work Phone: [facility] Start: 08-06-2024 End: 08-06-2024 Office outpatient visit 25 minutes Maira Rush RASCHEL KNITTING MACHINE OPERATOR Work Phone: [facility] Comment on above: JORDAN (generalized anx iety disorder) (CMS/HCC) (Primary Dx); SANTO (obstructive sleep apnea); Type 2 diabetes mellitus with diabetic polyneuropathy, with long-term current use of insulin (CMS/HCC); COPD mixed type (CMS/HCC); Oxygen dependent; Paroxysmal atrial fibrillation (CMS/HCC); Primary hypertension (CMS/HCC); Gastroesophageal reflux disease, unspecified whether esophagitis present; Obesity (BMI 30-39.9); Type 2 diabetes mellitus without complication, with long-term current use of insulin ([facility]); Anxiety and depression ([facility]); [facility] (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 ([facility]); Medical non-compliance; Mild episode of recurrent major depressive disorder ([facility]) ([facility]); Cigarette nicotine dependence without complication; Encounter for screening mammogram for malignant neoplasm of breast; Diabetic polyneuropathy associated with type 2 diabetes mellitus ([facility]); Mixed hyperlipidemia ([facility]); Edema of extremities Start: 08-06-2024 End: 08-06-2024 ambulatory MAIRA AICHHOLZ Not Available Start: 07-20-2024 End: 07-20-2024 Refill Maira Aichholz RASCHEL KNITTING MACHINE OPERATOR Work Phone: [facility] Comment on above: Type 2 diabetes gayatri itus with diabetic neuropathy, with long- term current use of insulin ([facility]) Start: 07-16-2024 End: 07-16-2024 Refill Maira Aichholz RASCHEL KNITTING MACHINE OPERATOR Work Phone: [facility] Comment on above: Diarrhea, unspecifie d type (Primary Dx) Start: 07-14-2024 End: 07-16-2024 External Result Encounter Maira Aichholz RASCHEL KNITTING MACHINE OPERATOR Work Phone: [facility] External Department Unsolicited Start: 07-14-2024 End: 07-16-2024 External Result Encounter Maira Aichholz RASCHEL KNITTING MACHINE OPERATOR Work Phone: [facility] External Department Unsolicited Start: 07-14-2024 End: 07-14-2024 Orders Only Maira Aichholz RASCHEL KNITTING MACHINE OPERATOR Work Phone: [facility] Comment on above: Diarrhea, unspecifie d type (Primary Dx) Start: 07-08-2024 End: 07-08-2024 Clinisync Result Encounter Maira Aichholz RASCHEL KNITTING MACHINE OPERATOR Work Phone: [facility] External Department Unsolicited Start: 07-08-2024 End: 07-08-2024 Clinisync Result Encounter Maira Aichholz RASCHEL KNITTING MACHINE OPERATOR Work Phone: [facility] External Department Unsolicited Start: 07-06-2024 End: 07-06-2024 [facility] Start: 07-01-2024 End: 07-01-2024 Refill Maira Aichholz RASCHEL KNITTING MACHINE OPERATOR Work Phone: [facility] Comment on above: Type 2 diabetes gayatri itus without complication, with long-term current use of insulin (CMS/HCC) (Primary Dx) Start: 06-11-2024 End: 06-11-2024 Orders Only Maira Aichholz RASCHEL KNITTING MACHINE OPERATOR Work Phone: [facility] Comment on above: 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 (CMS/HCC) (Primary Dx) Start: 06-09-2024 End: 06-09-2024 Bamboo flowsheet Maira Aichholz RASCHEL KNITTING MACHINE OPERATOR Work Phone: [facility] Start: 06-09-2024 End: 06-09-2024 Bamboo flowsheet Maira Aichholz RASCHEL KNITTING MACHINE OPERATOR Work Phone: [facility] Start: 06-09-2024 End: 06-09-2024 Office outpatient visit 25 minutes Maira Aichholz RASCHEL KNITTING MACHINE OPERATOR Work Phone: [facility] Comment on above: COVID (Primary Dx); Type 2 diabetes mellitus with diabetic polyneuropathy (CMS/HCC); Type 2 diabetes mellitus with hyperglycemia (CMS/HCC); 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/HCC); 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 (CMS/HCC); COPD mixed type (CMS/HCC); Paroxysmal atrial fibrillation (CMS/HCC); Primary hypertension (CMS/HCC); Tobacco user Start: 06-09-2024 End: 06-09-2024 ambulatory MAIRA AICHHOLZ Not Available Start: 05-28-2024 End: 05-28-2024 Refill Maira Aichholz RASCHEL KNITTING MACHINE OPERATOR Work Phone: [facility] Comment on above: COPD mixed type (CMS /HCC) Start: 05-28-2024 End: 05-28-2024 Office outpatient visit 25 minutes Maira Rush RASCHEL KNITTING MACHINE OPERATOR Work Phone: [facility] Comment on above: Oxygen dependent (Pr imary Dx); COPD mixed type (CMS/HCC); Obesity (BMI 30-39.9); COPD with acute exacerbation (CMS/HCC) Start: 05-28-2024 End: 05-28-2024 Orders Only Maira Rush RASCHEL KNITTING MACHINE OPERATOR Work Phone: [facility] [...] 05-19-2024 End: 05-19-2024 Bamboo flowsheet Maira Rush RASCHEL KNITTING MACHINE OPERATOR Work Phone: [facility] Start: 05-19-2024 End: 05-19-2024 Bamboo flowsheet Maira Rush RASCHEL KNITTING MACHINE OPERATOR Work Phone: [facility] Start: 05-19-2024 End: 05-19-2024 Office outpatient visit 15 minutes Maira Rush RASCHEL KNITTING MACHINE OPERATOR Work Phone: [facility] Comment on above: Right wrist pain (Pr imary Dx); Obesity (BMI 30-39.9) Start: 05-19-2024 End: 05-19-2024 ambulatory MAIRA VICTOR MANUEL Not Available Start: 05-18-2024 End: 05-18-2024 Orders Only Maira Rush RASCHEL KNITTING MACHINE OPERATOR Work Phone: [facility] Comment on above: Lung nodule, multipl e (Primary Dx) Start: 05-06-2024 End: 05-06-2024 Bamboo flowsheet Maira Rush RASCHEL KNITTING MACHINE OPERATOR Work Phone: [facility] Start: 05-06-2024 End: 05-06-2024 Bamboo flowsheet Maira Rush RASCHEL KNITTING MACHINE OPERATOR Work Phone: [facility] Start: 05-06-2024 End: 05-06-2024 Office outpatient visit 25 minutes Maira Rush NP Work Phone: [facility] Comment on above: COPD mixed type (CMS /HCC) (Primary Dx); SANTO (obstructive sleep apnea); Lung nodule, multiple; Community acquired pneumonia, unspecified laterality; Primary hypertension (CMS/HCC); Atrial fibrillation, unspecified type (CMS/HCC); Type 2 diabetes mellitus without complication, with long-term current use of insulin (CMS/HCC); Tobacco user; Needs flu shot Start: 05-06-2024 End: 05-06-2024 ambulatory MAIRATessa RUSH Not Available Start: 04-22-2024 End: 04-22-2024 Patient encounter status Maira Rush RASCHEL KNITTING MACHINE OPERATOR Work Phone: [facility] Start: 04-22-2024 End: 04-22-2024 Periodic preventive med est patient 40-64yrs Maira Rush RASCHEL KNITTING MACHINE OPERATOR Work Phone: [facility] Comment on above: Encounter for wellne ss [...] laterality Start: 04-22-2024 End: 04-22-2024 ambulatory MAIRA AICHHOLZ Not Available Start: 04-21-2024 End: 04-21-2024 Office outpatient visit 25 minutes Felton Allison MD Work Phone: [facility] Comment on above: Type 2 diabetes [...] 04-09-2024 End: 04-09-2024 Clinisync Result Encounter Maira Fatouz RASCHEL KNITTING MACHINE OPERATOR Work Phone: [facility] External Department Unsolicited Start: 04-09-2024 End: 04-09-2024 Clinisync Result Encounter Maira Fatouz RASCHEL KNITTING MACHINE OPERATOR Work Phone: [facility] External Department Unsolicited Start: 04-09-2024 End: 04-09-2024 Telephone encounter Maira Rush RASCHEL KNITTING MACHINE OPERATOR Work Phone: [facility] Start: 03-20-2024 End: 03-20-2024 ambulatory [facility] Start: 03-18-2024 End: 03-18-2024 Refill Maira Aichholz RASCHEL KNITTING MACHINE OPERATOR Work Phone: [facility] Comment on above: COPD mixed type (CMS /HCC) (Primary Dx); URI, acute COPD mixed type (CMS /HCC); URI, acute Start: 03-16-2024 End: 03-16-2024 Refill Maira Aichholz RASCHEL KNITTING MACHINE OPERATOR Work Phone: [facility] Comment on above: Primary hypertension (CMS/HCC) (Primary Dx); Edema of extremities Start: 03-11-2024 End: 03-11-2024 Bamboo flowsheet Maira Aichholz RASCHEL KNITTING MACHINE OPERATOR Work Phone: [facility] Start: 03-11-2024 End: 03-11-2024 Bamboo flowsheet Maira Aichholz RASCHEL KNITTING MACHINE OPERATOR Work Phone: [facility] Start: 03-11-2024 End: 03-11-2024 Office outpatient visit 25 minutes Maira Aichholz RASCHEL KNITTING MACHINE OPERATOR Work Phone: [facility] Comment on above: Viral upper respirat ory tract infection (Primary Dx); Tobacco user; Open wound; Obesity (BMI 30-39.9); Type 2 diabetes mellitus without complication, with long-term current use of insulin ([facility]) Start: 03-11-2024 End: 03-11-2024 ambulatory MAIRA AICHHOLZ Not Available Start: 02-25-2024 End: 02-25-2024 Bamboo flowsheet Maira Aichholz RASCHEL KNITTING MACHINE OPERATOR Work Phone: [facility] Start: 02-25-2024 End: 02-25-2024 Bamboo flowsheet Maira Aichholz RASCHEL KNITTING MACHINE OPERATOR Work Phone: [facility] Start: 02-25-2024 End: 02-25-2024 Office outpatient visit 25 minutes Maira Aichholz RASCHEL KNITTING MACHINE OPERATOR Work Phone: [facility] Comment on above: Open wound of buttoc k, unspecified laterality, initial encounter (Primary Dx); Type 2 diabetes mellitus without complication, with long-term current use of insulin ([facility]); Obesity (BMI 30-39.9); Dizziness and giddiness Start: 02-25-2024 End: 02-25-2024 ambulatory MAIRA AICHHOLZ Not Available Start: 02-24-2024 End: 02-26-2024 Clinisync Result Encounter Generic External Data Provider [facility] External Department Unsolicited Start: 02-24-2024 End: 02-26-2024 Clinisync Result Encounter Generic External Data Provider [facility] External Department Unsolicited Start: 02-17-2024 End: 02-17-2024 Bamboo flowsheet Maira Aichholz RASCHEL KNITTING MACHINE OPERATOR Work Phone: [facility] Start: 02-17-2024 End: 02-17-2024 Bamboo flowsheet Maira Rush RASCHEL KNITTING MACHINE OPERATOR Work Phone: [facility] Start: 02-17-2024 End: 02-17-2024 Office outpatient visit 25 minutes Maira Rush RASCHEL KNITTING MACHINE OPERATOR Work Phone: [facility] Comment on above: Type 2 diabetes gayatri itus with hyperglycemia (CMS/HCC) (Primary Dx); Primary hypertension (CMS/HCC); Edema of extremities; Type 2 diabetes mellitus without complication, with long-term current use of insulin (CMS/HCC); Vitamin D deficiency; Tobacco user; Dizziness and giddiness; Atrial fibrillation, unspecified type (CMS/HCC); COPD mixed type (CMS/HCC) Start: 02-17-2024 End: 02-17-2024 ambulatory MAIRA RUSH Not Available Start: 01-23-2024 End: 01-23-2024 ambulatory CHAPITO DAMICO [facility] Start: 01-16-2024 End: 01-22-2024 ambulatory [facility] Start: 01-16-2024 End: 01-22-2024 Emergency department patient visit [facility]IKI T[facility] Start: 01-16-2024 End: 01-22-2024 [facility] Start: 07-18-2023 End: 07-18-2023 Office outpatient visit 25 minutes Maira Rush RASCHEL KNITTING MACHINE OPERATOR Work Phone: [facility] Comment on above: Primary hypertension (CMS/HCC) (Primary [...] mass index (BMI) of 40.0 to 49.9 ([facility]) Start: 07-18-2023 Bamboo flowsheet Maira Rush RASCHEL KNITTING MACHINE OPERATOR Work Phone: [facility] Start: 07-18-2023 Bamboo flowsheet Maira Rush RASCHEL KNITTING MACHINE OPERATOR Work Phone: [facility] Start: 10-02-2022 End: 10-03-2022 ambulatory DMITRY MAIAR RUSH Facility:[facility] Start: 08-09-2022 End: 08-10-2022 ambulatory DMITRY RUSH Facility:[facility] Start: 07-12-[address] [facility] Start: 06-21-2022 End: 06-22-[address] CORINE ANGELA Facility:[facility] Start: 06-20-2022 End: 06-21-2022 ambulatory DMITRY RUSH Facility:[facility] Start: 06-07-2022 End: 06-07-2022 ambulatory Robert Hart Facility:[facility] Start: 04-05-2022 End: 04-09-2022 Evaluation and management of inpatient DR TERI BLOCK . Facility:[facility] Start: 11-23-2021 End: 11-23-2021 ambulatory REFRACTORY SPECIALIST MAIRA RUSH Facility:[facility] Start: 09-30-2018 End: 10-01-2018 Patient encounter procedure DEFAULT PHYSICIAN Facility:[facility] Start: 09-15-2018 End: 09-16-2018 Patient encounter procedure DEFAULT PHYSICIAN Facility:[facility] Procedures Date Procedure Procedure Detail Performing Clinician Start: 12-14-2024 Hemoglobin glycosylated a1c Maira Rush RASCHEL KNITTING MACHINE OPERATOR Work Phone: Start: 10-04-2024 AEROBIC CULTURE Generic External Data Provider Start: 07-14-2024 GASTROINTESTINAL PLU S PARASITES (HTRX) Maira Rush RASCHEL KNITTING MACHINE OPERATOR Work Phone: Start: 07-08-2024 CT ABDOMEN WO/W CON Keisha Rush RASCHEL KNITTING MACHINE OPERATOR Work Phone: Start: 05-25-2024 ALL RENAL FUNCTION PANEL Generic External Data Provider Start: 04-21-2024 Gluc bld gluc mntr d ev cleared fda spec home use Felton Allison MD Work Phone: Start: 04-09-2024 TBH UA (CLEAN/CATCH) MICROSCOPIC IF INDICATE Maira Rush RASCHEL KNITTING MACHINE OPERATOR Work Phone: Start: 02-24-2024 Bacteria identified in Urine by Culture Generic External Data Provider Start: 08-05-2023 Mammography Mairatessa Escuderoluh santiago RASCHEL KNITTING MACHINE OPERATOR Work Phone: Start: 06-19-2022 Mammography Maira Carlos jack RASCHEL KNITTING MACHINE OPERATOR Work Phone: Start: 02-14-2015 Colonoscopy Maira Terrance santiago RASCHEL KNITTING MACHINE OPERATOR Work Phone: Plan of Treatment Date Care Activity Detail Author Start: 05-25-2025 Urine screening for protein Diabetes: Urine Protein Screening [facility] Start: 03-16-2025 Hemoglobin A1c measurement Diabetes: Hemoglobin A1C [facility] Start: 02-14-2025 Screening for malignant neoplasm of colon [facility] Start: 01-14-2025 End: 01-14-2025 Patient encounter procedure 01/14/2025 11:00 AM EDT Office Visit [facility] [address] [place] [address] Maira Rush, ARLEN [address] [place] [address] [facility] Start: 12-14-2024 End: 12-14-2025 Comprehensive metabolic 2000 panel - Serum or Plasma Comprehensive metabolic panel Lab Routine Type 2 diabetes mellitus without complication, with long-term current use of insulin (HCC) Expected: 12/14/2024 (Approximate), Expires: 12/14/2025 [facility] Work Phone: Comment on above: Expected: 12/14/2024 (Approximate), Expi res: 12/14/2025 Start: 12-14-2024 End: 12-14-2025 Lipid 1996 panel - Serum or Plasma Lipid panel Lab Routine Type 2 diabetes mellitus without complication, with long-term current use of insulin (HCC) Expected: 12/14/2024 (Approximate), Expires: 12/14/2025 [facility] Comment on above: Expected: 12/14/2024 (Approximate), Expi res: 12/14/2025 Start: 12-14-2024 End: 12-14-2024 [facility] Comment on above: Type 2 diabetes mellitus without complic ation, with long-term current use of insulin (HCC) (Primary Dx); Gill rash of groin; Cigarette nicotine dependence without complication; Urge and stress incontinence Start: 11-26-2024 End: 05-28-2025 CT Chest W contrast IV CT chest w IV contrast Imaging Routine Lung nodule, multiple Expected: 11/26/2024 (Approximate), Expires: 05/28/2025 [facility] Work Phone: Comment on above: Expected: 11/26/2024 (Approximate), Expi res: 05/28/2025 Start: 11-25-2024 End: 11-25-2025 Basic metabolic 1998 panel - Serum or Plasma Basic metabolic panel Lab Routine Primary hypertension Expected: 11/25/2024 (Approximate), Expires: 11/25/2025 [facility] Work Phone: Comment on above: Expected: 11/25/2024 (Approximate), Expi res: 11/25/2025 Start: 11-09-2024 End: 11-09-2024 Patient encounter procedure 11/09/2024 9:40 AM EDT [facility] [address] [place] [address] Maira Rush, ARLEN [address] [place] [address] [facility] Start: 10-14-2024 End: 10-14-2024 Patient encounter procedure 10/14/2024 2:20 PM EDT Office Visit [facility] [address] [place] [address] Maira Rush, RASCHEL KNITTING MACHINE OPERATOR [address] [place] [address] [facility] Start: 10-14-2024 End: 12-14-2025 MG Breast - bilateral Screening Bilateral screening mammogram Imaging Routine Encounter for screening mammogram for malignant neoplasm of breast Expected: 10/14/2024 (Approximate), Expires: 12/14/2025 [facility] Work Phone: Comment on above: Expected: 10/14/2024 (Approximate), Expi res: 12/14/2025 Start: 09-02-2024 End: 09-02-2024 Patient encounter procedure 09/02/2024 11:10 AM EDT Office Visit [facility] [address] [place] [address] Felton Allison MD [address] [place] [address] [facility] Start: 08-06-2024 End: 10-06-2025 MG Breast - bilateral Screening Bilateral screening mammogram Imaging Routine Encounter for screening mammogram for malignant neoplasm of breast Expected: 08/06/2024 (Approximate), Expires: 10/06/2025 [facility] Work Phone: Comment on above: Expected: 08/06/2024 (Approximate), Expi res: 10/06/2025 Start: 08-06-2024 End: 08-06-2024 Patient encounter procedure [facility] Comment on above: SANTO (obstructive sleep apnea) (Primary D x); Type 2 diabetes mellitus with diabetic polyneuropathy, with long-term current use of insulin (CMS/HCC); COPD mixed type (CMS/HCC); Oxygen dependent; Paroxysmal atrial fibrillation (CMS/HCC); Primary hypertension (CMS/HCC); Gastroesophageal reflux disease, unspecified whether esophagitis present; Obesity (BMI 30-39.9); Type 2 diabetes mellitus without complication, with long-term current use of insulin (CMS/HCC); Anxiety and depression (CMS/HCC); 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 (CMS/HCC); Medical non-compliance; JORDAN (generalized anxiety disorder) ([facility]/HCC); Mild episode of recurrent major depressive disorder (HCC) ([facility]/HCC); Cigarette nicotine dependence without complication; Encounter for screening mammogram for malignant neoplasm of breast Start: 08-04-2024 Screening for malignant neoplasm of breast Mammogram [facility] Start: 08-04-2024 Urine screening for protein Diabetes: Urine Protein Screening [facility] Start: 07-23-2024 Hemoglobin A1c measurement Diabetes: Hemoglobin A1C [facility] Start: 07-22-2024 Hemoglobin A1c measurement Diabetes: Hemoglobin A1C [facility] Start: 07-21-2024 End: 07-21-2024 Patient encounter procedure 07/21/2024 2:20 PM EST Office Visit [facility] [address] [place] [address] Felton Allison MD [address] [place] [address] [facility] Start: 07-21-2024 End: 07-21-2024 Patient encounter procedure 07/21/2024 10:40 AM EST Office Visit [facility] [address] [place] [address] Felton Allison MD [address] [place] [address] [facility] Start: 07-14-2024 End: 07-14-2025 GASTROINTESTINAL PLUS PARASITES (HTRX) GASTROINTESTINAL PLUS PARASITES (HTRX) Lab Routine Diarrhea, unspecified type Expected: 07/14/2024 (Approximate), Expires: 07/14/2025 [facility] Work Phone: Comment on above: Expected: 07/14/2024 (Approximate), Expi res: 07/14/2025 Start: 07-09-2024 Hemoglobin A1c measurement Diabetes: Hemoglobin A1C [facility] Start: 06-11-2024 End: 06-11-2025 CT Abdomen WO and W contrast IV CT abdomen w and wo IV contrast Imaging Routine 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 ([facility]/HCC) Expected: 06/11/2024, Expires: 06/11/2025 [facility] Work Phone: Comment on above: Expected: 06/11/2024, Expires: Start: 06-09-2024 End: 06-09-2024 Patient encounter procedure 06/09/2024 11:00 AM EST Office Visit [facility] [address] [place] [phone] Maira Rush NP [address] [place] [phone] COPD mixed type (CMS/HCC) (Primary Dx); Type 2 diabetes mellitus with diabetic polyneuropathy (CMS/HCC); Type 2 diabetes mellitus with hyperglycemia (CMS/HCC); 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/HCC); [facility] (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 (CMS/HCC); Paroxysmal atrial fibrillation (CMS/HCC); Primary hypertension (CMS/HCC); Tobacco user; COVID [facility] Comment on above: COPD mixed type (CMS/HCC) (Primary Dx); Type 2 diabetes mellitus with diabetic polyneuropathy (CMS/HCC); Type 2 diabetes mellitus with hyperglycemia (CMS/HCC); 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/HCC); [facility] (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 (CMS/HCC); Paroxysmal atrial fibrillation (CMS/HCC); Primary hypertension (CMS/HCC); Tobacco user; COVID Start: 05-28-2024 End: 05-28-2025 Creatinine [Mass/volume] in Serum or Plasma Creatinine Lab Routine 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 (CMS/HCC) Expected: 05/28/2024 (Approximate), Expires: 05/28/2025 [facility] Comment on above: Expected: 05/28/2024 (Approximate), Expi res: 05/28/2025 Start: 05-28-2024 End: 05-28-2025 CT Abdomen and Pelvis W contrast IV CT abdomen pelvis w IV contrast Imaging Routine 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 (CMS/HCC) Expected: 05/28/2024 (Approximate), Expires: 05/28/2025 [facility] Work Phone: Comment on above: Expected: 05/28/2024 (Approximate), Expi res: 05/28/2025 Start: 05-19-2024 End: 05-19-2024 Patient encounter procedure [facility] Comment on above: Obesity (BMI 30-39.9) (Primary Dx); COPD mixed type (CMS/HCC) Start: 05-18-2024 End: 05-18-2025 Creatinine [Mass/volume] in Serum or Plasma Creatinine Lab Routine Lung nodule, multiple Expected: 05/18/2024 (Approximate), Expires: 05/18/2025 [facility] Work Phone: Comment on above: Expected: 05/18/2024 (Approximate), Expi res: 05/18/2025 Start: 05-06-2024 End: 05-06-2024 Patient encounter procedure 05/06/2024 1:20 PM EST Office Visit [facility] [address] [place] [address] Maira Rush, ARLEN [address] [place] [phone] SANTO (obstructive sleep apnea) (Primary Dx); Lung nodule, multiple; COPD mixed type (CMS/HCC); Community acquired pneumonia, unspecified laterality; Primary hypertension (CMS/HCC); Atrial fibrillation, unspecified type (CMS/HCC); Type 2 diabetes mellitus without complication, with long-term current use of insulin (CMS/HCC); Tobacco user [facility] Comment on above: SANTO (obstructive [...] Lymphadenopathy, generalized Expected: 04/22/2024 (Approximate), Expires: 04/22/2025 [facility] Work Phone: Comment on above: Expected: 04/22/2024 (Approximate), Expi res: 04/22/2025 Start: 04-22-2024 End: 04-22-2024 Patient encounter procedure 04/22/2024 9:20 AM EST Office Visit [facility] [address] [place] [address] Maira Rush, RASCHEL KNITTING MACHINE OPERATOR [address] [place] [phone] [facility] Start: 04-21-2024 End: 04-21-2024 Patient encounter procedure 04/21/2024 2:40 PM EST Office Visit [facility] [address] [place] [address] Felton Allison MD [address], [address] [place] [address] [facility] Start: 04-21-2024 End: 04-21-2025 25-hydroxyvitamin D3 [Mass/volume] in Serum or Plasma Vitamin D 25 hydroxy Total Lab Routine Type 2 diabetes mellitus with hyperglycemia, with long-term current use of insulin ([facility]) Expected: 04/21/2024 (Approximate), Expires: 04/21/2025 [facility] Comment on above: Expected: 04/21/2024 (Approximate), Expi res: 04/21/2025 Start: 04-21-2024 End: 04-21-2025 C-peptide C-peptide Lab Routine Type 2 diabetes mellitus with hyperglycemia, with long-term current use of insulin ([facility]) Expected: 04/21/2024 (Approximate), Expires: 04/21/2025 [facility] Work Phone: Comment on above: Expected: 04/21/2024 (Approximate), Expi res: 04/21/2025 Start: 04-21-2024 End: 04-21-2024 Chart abstracting 04/21/2024 Abstract [facility] [address] [place] [address] Felton Allison MD [address] [place] [address] [facility] Start: 04-21-2024 End: 04-21-2025 Lipid 1996 panel - Serum or Plasma Lipid panel Lab Routine Type 2 diabetes mellitus with hyperglycemia, with long-term current use of insulin ([facility]/HCC) Expected: 04/21/2024 (Approximate), Expires: 04/21/2025 [facility] Comment on above: Expected: 04/21/2024 (Approximate), Expi res: 04/21/2025 Start: 04-21-2024 End: 04-21-2025 Microalbumin/Creatinine panel in random Urine Microalbumin / creatinine urine ratio Lab Routine Type 2 diabetes mellitus with hyperglycemia, with long-term current use of insulin (CMS/HCC) Expected: 04/21/2024 (Approximate), Expires: 04/21/2025 [facility] Comment on above: Expected: 04/21/2024 (Approximate), Expi res: 04/21/2025 Start: 04-21-2024 End: 04-21-2025 Renal function panel Renal function panel Lab Routine Type 2 diabetes mellitus with hyperglycemia, with long-term current use of insulin (CMS/HCC) Expected: 04/21/2024 (Approximate), Expires: 04/21/2025 [facility] Comment on above: Expected: 04/21/2024 (Approximate), Expi res: 04/21/2025 Start: 03-11-2024 End: 03-11-2024 Patient encounter procedure [facility] Comment on above: Arrived Start: 02-25-2024 End: 02-25-2024 Patient encounter procedure 02/25/2024 11:00 AM EDT Office Visit [facility] [address] [place] [address] Maira Rush ARLEN [address] [place] [address] Arrived [facility] Comment on above: Arrived Start: 02-17-2024 End: 02-16-2025 CBC W Auto Differential panel - Blood CBC and differential Lab Routine Dizziness and giddiness Expected: 02/17/2024 (Approximate), Expires: 02/16/2025 [facility] Comment on above: Expected: 02/17/2024 (Approximate), Expi res: 02/16/2025 Start: 02-17-2024 End: 02-16-2025 Comprehensive metabolic 2000 panel - Serum or Plasma Comprehensive metabolic panel Lab Routine Type 2 diabetes mellitus with hyperglycemia (CMS/HCC) Primary hypertension (CMS/HCC) Edema of extremities Type 2 diabetes mellitus without complication, with long-term current use of insulin (CMS/HCC) Vitamin D deficiency Dizziness and giddiness Expected: 02/17/2024 (Approximate), Expires: 02/16/2025 [facility] Comment on above: Expected: 02/17/2024 (Approximate), Expi res: 02/16/2025 Start: 02-17-2024 End: 02-16-2025 Hemoglobin A1c/Hemoglobin.total in Blood Hemoglobin A1c Lab Routine Type 2 diabetes mellitus with hyperglycemia (CMS/HCC) Expected: 02/17/2024 (Approximate), Expires: 02/16/2025 [facility] Comment on above: Expected: 02/17/2024 (Approximate), Expi res: 02/16/2025 Start: 02-17-2024 End: 02-16-2025 Magnesium [Mass/volume] in Serum or Plasma Magnesium Lab Routine Dizziness and giddiness Expected: 02/17/2024 (Approximate), Expires: 02/16/2025 [facility] Work Phone: Comment on above: Expected: 02/17/2024 (Approximate), Expi res: 02/16/2025 Start: 02-17-2024 End: 02-16-2025 Urinalysis complete panel - Urine Urinalysis with reflex microscopic (clean catch) Lab Routine Type 2 diabetes mellitus with hyperglycemia (CMS/HCC) Primary hypertension (CMS/HCC) Tobacco user Dizziness and giddiness Expected: 02/17/2024 (Approximate), Expires: 02/16/2025 [facility] Comment on above: Expected: 02/17/2024 (Approximate), Expi res: 02/16/2025 Start: 11-05-2023 Hemoglobin A1c measurement Diabetes: Hemoglobin A1C [facility] Start: 10-16-2023 End: 10-16-2023 Patient encounter procedure 10/16/2023 9:20 AM EDT Office Visit [facility] [address] [place] [address] Maira Rush NP [address] [place] [address] [facility] Start: 08-16-2023 End: 09-15-2024 MG Breast - bilateral Screening Bilateral screening mammogram Imaging Routine Encounter for screening mammogram for malignant neoplasm of breast Expected: 08/16/2023 (Approximate), Expires: 09/15/2024 [facility] Comment on above: Expected: 08/16/2023 (Approximate), Expi res: 09/15/2024 Start: 08-10-2023 Urine screening for protein Diabetes: Urine Protein Screening [facility] Start: 07-18-2023 End: 07-18-2023 Patient encounter procedure 07/18/2023 2:20 PM EST Office Visit [facility] [address] [place] [address] Maira Rush NP [address] [place] [address] Type 2 diabetes mellitus with diabetic neuropathy, with long-term current use of insulin (CMS/HCC) (Primary Dx); Primary hypertension (CMS/HCC); Gastroesophageal reflux disease, unspecified whether esophagitis present; Vitamin D deficiency; Type 2 diabetes mellitus with complication, without long-term current use of insulin (CMS/HCC); Mixed hyperlipidemia (CMS/HCC); Encounter for screening mammogram for malignant neoplasm of breast [facility] Comment on above: Type 2 diabetes mellitus [...] D deficiency Expected: 07/18/2023 (Approximate), Expires: 07/18/2024 [facility] Comment on above: Expected: 07/18/2023 (Approximate), Expi res: 07/18/2024 Start: 07-18-2023 End: 07-18-2024 CBC W Auto Differential panel - Blood CBC and differential Lab Routine Gastroesophageal reflux disease, unspecified whether esophagitis present Expected: 07/18/2023 (Approximate), Expires: 07/18/2024 [facility] Work Phone: Comment on above: Expected: 07/18/2023 (Approximate), Expi res: 07/18/2024 Start: 07-18-2023 End: 07-18-2024 Comprehensive metabolic 2000 panel - Serum or Plasma Comprehensive metabolic panel Lab Routine Primary hypertension (CMS/HCC) Type 2 diabetes mellitus with complication, without long-term current use of insulin (CMS/HCC) Mixed hyperlipidemia (CMS/HCC) Expected: 07/18/2023 (Approximate), Expires: 07/18/2024 [facility] Comment on above: Expected: 07/18/2023 (Approximate), Expi res: 07/18/2024 Start: 07-18-2023 End: 07-18-2024 Hemoglobin A1c/Hemoglobin.total in Blood Hemoglobin A1c Lab Routine Type 2 diabetes mellitus with complication, without long-term current use of insulin (CMS/HCC) Expected: 07/18/2023 (Approximate), Expires: 07/18/2024 [facility] Comment on above: Expected: 07/18/2023 (Approximate), Expi res: 07/18/2024 Start: 07-18-2023 End: 07-18-2024 Lipid 1996 panel - Serum or Plasma Lipid panel Lab Routine Mixed hyperlipidemia ([facility]) Expected: 07/18/2023 (Approximate), Expires: 07/18/2024 [facility] Comment on above: Expected: 07/18/2023 (Approximate), Expi res: 07/18/2024 Start: 07-18-2023 End: 07-18-2024 Microalbumin/Creatinine panel in random Urine Microalbumin / creatinine, urine ratio Lab Routine Type 2 diabetes mellitus with complication, without long-term current use of insulin ([facility]) Expected: 07/18/2023 (Approximate), Expires: 07/18/2024 [facility] Comment on above: Expected: 07/18/2023 (Approximate), Expi res: 07/18/2024 Start: 07-18-2023 End: 07-18-2024 Urinalysis complete panel - Urine Urinalysis with reflex microscopic (clean catch) Lab Routine Type 2 diabetes mellitus with complication, without long-term current use of insulin ([facility]) Expected: 07/18/2023 (Approximate), Expires: 07/18/2024 [facility] Comment on above: Expected: 07/18/2023 (Approximate), Expi res: 07/18/2024 Start: 06-19-2023 Screening for malignant neoplasm of breast Mammogram [facility] Start: 04-05-2023 Pneumococcal Vaccine: 65+ Years (2 of 2 - PCV) Pneumococcal Vaccine: 65+ Years (2 of 2 - PCV) [facility] Start: 02-01-2023 Influenza vaccination Influenza Vaccine (#1) [facility] Start: 01-07-2019 Hemoglobin A1c measurement Diabetes: Hemoglobin A1C [facility] Start: 1989 Screening for malignant neoplasm of cervix [facility] Start: 1980 Screening for malignant neoplasm of cervix Pap Smear [facility] Start: 1969 Glaucoma screening Diabetes: Retinopathy Screening [facility] Start: 1959 Screening for malignant neoplasm of colon [facility] AEROBIC CULTURE AEROBIC CULTURE Lab Routine 10/04/2024 2:22 AM EDT [facility] Immunizations Immunization Date Immunization Notes Care Provider Fa cility 05-06-2024 influenza, high dose seasonal, preservative-free Maira Aichholz RASCHEL KNITTING MACHINE OPERATOR Work Phone: [facility] 06-25-2023 Influenza, injectabl e, Madin Arline Canine Kidney, preservative free, quadrivalent Maira Aichholz RASCHEL KNITTING MACHINE OPERATOR Work Phone: [facility] 04-05-2022 influenza, injectabl e, quadrivalent, preservative free Maira Aichholz RASCHEL KNITTING MACHINE OPERATOR Work Phone: [facility] 04-05-2022 pneumococcal polysaccharide vaccine, 23 valent Maira Aichholz RASCHEL KNITTING MACHINE OPERATOR Work Phone: [facility] 04-05-2022 influenza virus vacc ine, unspecified formulation Maira Aichholz RASCHEL KNITTING MACHINE OPERATOR Work Phone: [facility] 11-23-2021 diphtheria, tetanus toxoids and pertussis vaccine Maira Aichholz RASCHEL KNITTING MACHINE OPERATOR Work Phone: [facility] 11-23-2021 tetanus toxoid, redu joaquin diphtheria toxoid, and acellular pertussis vaccine, adsorbed Maira Aichholz RASCHEL KNITTING MACHINE OPERATOR Work Phone: [facility] 2021 Influenza, injectabl e, Madin Arline Canine Kidney, preservative free, quadrivalent Maira Aichholz RASCHEL KNITTING MACHINE OPERATOR Work Phone: [facility] 03-24-2020 tetanus toxoid, redu joaquin diphtheria toxoid, and acellular pertussis vaccine, adsorbed Maira Aichholz RASCHEL KNITTING MACHINE OPERATOR Work Phone: [facility] 03-25-2017 Influenza, injectabl e, Madin Arline Canine Kidney, preservative free, quadrivalent Maira Aichholz RASCHEL KNITTING MACHINE OPERATOR Work Phone: [facility] Payers Date Payer Category Payer Medicaid [employer] [place] [employer] [id number] 2017-Present [address] [place] [address] [id number] 2017 Medicaid (Managed Care) [employer] [id number] 1959 Unknown [id number] [id number]. 647 1959 Unknown [id number] 2.16.840.1.712871.3.579.2. 647 1959 Unknown [id number] 2.16.840.1.157317.3.579.2. 593 1959 Unknown [id number] 2.16.840.1.762536.3.579.2. 593 1959 Unknown [id number] 2.16.840.1.160491.3.579.2. 593 1959 Unknown [id number] 2.16.840.1.403178.3.579.2. 593 1959 Unknown [id number] 2.16.840.1.078991.3.579.2. 593 1959 Unknown [id number] 2.16.840.1.277778.3.579.2. 593 1959 Unknown [id number] 2.16.840.1.073851.3.579.2. 593 1959 Unknown [id number] 2.16.840.1.104954.3.579.2. 1286 1959 Unknown [id number] 2.16.840.1.902098.3.579.2. 1286 1959 Unknown [id number] 2.16.840.1.858175.3.579.2. 1286 1959 Unknown [id number] 2.16.840.1.851826.3.579.2. 1286 1959 Unknown [id number] 2.16.840.1.566715.3.579.2. 128 1959 Unknown [id number] 2.16.840.1.967967.3.579.2. 1286 1959 Unknown [id number]. 125 1959 Unknown [id number] 2.16.840.1.229181.3.579.2. 1258 1959 Unknown [id number] 2.16.840.1.180509.3.579.2. 1258 1959 Unknown [id number] 2.16.840.1.380546.3.579.2. 1258 1959 Unknown [id number] 2.16.840.1.550091.3.579.2. 1258 1959 Unknown [id number] 2.16.840.1.875453.3.579.2. 1258 1959 Unknown [id number] 2.16.840.1.863897.3.579.2. 1258 1959 Unknown [id number] 2.16.840.1.763917.3.579.2. 1258 1959 Unknown [id number] 2.16.840.1.139089.3.579.2. 1258 1959 Unknown [id number] 2.16.840.1.388137.3.579.2. 1258 1959 Unknown [id number] 2.16.840.1.175262.3.579.2. 1258 1959 Unknown [id number] 2.16.840.1.143292.3.579.2. 1258 1959 Unknown [id number] 2.16.840.1.438398.3.579.2. 1259 1959 Unknown [id number] Unknown Social History Date Type Detail Facility Start: 07-15-2023 [facility] Start: 06-03-1982 End: 04-03-2022 History of tobacco use Current smoker [facility] Start: 06-03-1982 End: 04-03-2022 History of tobacco use Cigarette Smoker [facility] Start: 07-15-2023 End: 12-14-2024 Cigarettes smoked current (pack per day) - Reported 0.5 [facility] Start: 07-18-2023 End: 12-14-2024 Alcohol intake Ex-drinker (finding) [facility] Start: 06-29-2023 End: 12-14-2024 Tobacco use panel [facility] Start: 07-15-2023 Alcohol Comment coffee 1-2 cup s per day [facility] Start: 1960 Sex Assigned At Not on file [facility] How often do you nee d to have someone help you when you read instructions, pamphlets, or other written material from your doctor or pharmacy [SILS] Rarely [facility] Work Phone: Within the last year , have you been afraid of your partner or ex-partner? No [facility] In a typical week, h ow many times do you talk on the telephone with family, friends, or neighbors? Patient declined [facility] Are you now , , , , never or living with a partner? [facility] How often to you hav e a drink containing alcohol? Never [facility] How hard is it for y ou to pay for the very basics like food, housing, medical care, and heating Hard [facility] Do you feel stress - tense, restless, nervous, or anxious, or unable to sleep at night because your mind is troubled all the time - these days [OSQ] Very much [facility] (I/We) worried wheth er (my/our) food would run out before (I/we) got money to buy more. Sometimes true [facility] In the past 12 month s, was there a time when you were not able to pay the mortgage or rent on time? Yes [facility] Medical Equipment Procedure Code Equipment Code Equipment Origin al Text Equipment Identifier Dates [id number] Start: 06-24-2023 End: 08-26-2024 USE TO TEST BLOO D SUGAR FOUR TIMES A DAY [id number] Start: 08-26-2024 USE FOUR TIMES A DAY [id number] Star t: 12-17-2024 USE DIRECTED PER PACKAGE INSTRUCTIONS *NEW RX REQUEST* [id number] Start: 12-15-2024 USE FOUR TIMES A DAY *NEW RX REQUEST* [id number] Start: 12-15-2024 Functional Status Date Assessment Result Facility 12-14-2024 Total score [AUDIT-C] 0 12/15/19 1:49 PM EDT Chandrika Danielson MA [facility] Clinical Notes 06-07-2022 to 12-14-2024 Maira Rush NP - 12/14/2024 12:51 PM EDJacobo Rush NP - 12/14/2024 12:48 PM Andrea Rush NP - 12/14/2024 12:48 PM EDTHUMBPRESTON CONTRERAS - 12/14/2024 11:30 AM EDTPatient Instructions Note Date & Type Note Facility 12-14-2024 History of Presen t illness Narrative Associated Problem(s): Medical non-compliance Has not had fu with pulmonology Does not wear PAP as directed Not following with endo Not taking insulin as directed MOCA: 12/14/24 Had pt advocate Chandrika come to see pt and get enrolled in program Associated Problem(s): Atrial fibrillation (HCC) No current afib Current meds: xarelto, b dania Saw cardiology in the last few weeks Stated no ASA therapy d/t DOAC Associated Problem(s): Primary hypertension Please check blood pressure daily and record DASH diet Limit caffeine Take medication as directed Contact office if chest pain, pressure, dizziness, shortness of breath, swelling legs Recommend slow position changes Current meds: b dania and arb Pt is still having burning when urinating and gabriele area is still very itchy Images from the original note were not included. Denae Dior is a 64 y.o. female presents with chief complaint of Diabetes HPI: Here for a recheck of candidiasis: overall significant improvement with sxs She does mention that she is getting evicted from her apartment , stated she loaned her nephrew in [place] 400.00 over a 3 month period and did not pay her rent. She is not sure where she will be going, has another nephew in [place], would take her but car wont make it down here to get her and her van wont make it up there. Her is in a assisted as well here in [place]. She states she would just come to see him and she can talk on phone with him she is taking her insulin, but only twice a day, she continues to be losing weight (21 pounds since 10/14/24, and 43 since 08/25) She reports she is eating, denies any diarrhea, or NV either SUBJECTIVE: MEDICATIONS: Current Outpatient Medications Medication Instructions albuterol 2.5 mg, Nebulization, Every 6 hours PRN Alcohol Swabs (Alcohol Prep) 70 % pads USE DIRECTED FIVE TIMES A DAY Aspirin Low Dose 81 mg, Daily budesonide-formoterol (Symbicort) 160-4.5 MCG/ACT inhaler 2 puffs, Inhalation, 2 times daily buPROPion XL (WELLBUTRIN XL) 150 mg, Oral, Every morning, Do not crush, chew, or split. Calcium Carb-Cholecalciferol (Calcium+D3) 500-10 MG-MCG tablet 1 tablet, Oral, 2 times daily carvedilol (Coreg) 12.5 MG tablet 1 tablet, 2 times daily with meals cholecalciferol (Vitamin D-3) 50 MCG (1999 UT) tablet Daily Continuous Glucose Utility Bill Complaints Investigator (FreeStyle Julisa 2 Germfask) device 1 kit, Does not apply, Every 14 days Continuous Glucose Utility Bill Complaints Investigator (FreeStyle Julisa 2 Germfask) device USE DIRECTED Continuous Glucose Sensor (FreeStyle Julisa 2 Sensor) misc USE TO MONITOR BLOOD SUGAR DIRECTED. CHANGE SENSOR EVERY 14 DAYS. empagliflozin (JARDIANCE) 25 mg, Oral, Daily fluconazole (Diflucan) 150 MG tablet Every 3 days for a total of 4 doses furosemide (LASIX) 20 mg, Every morning gabapentin (NEURONTIN) 600 mg, Oral, 3 times daily glucose blood (True Metrix Blood Glucose Test) test strip USE TO TEST BLOOD SUGAR FOUR TIMES A DAY insulin lispro (HumaLOG Winston KwikPen) 100 UNIT/ML pen INJECT TEN UNITS SUBCUTANEOUSLY (UNDER THE SKIN) THREE TIMES DAILY (IN THE MORNING, at noon, and IN THE EVENING) WITH MEALS insulin lispro (HUMALOG) 2-10 Units, 3 times daily with meals insulin lispro (HUMALOG) 2-10 Units, 3 times daily with meals Lantus SoloStar 100 UNIT/ML pen INJECT 60 UNITS SUBCUTANEOUSLY AT BEDTIME losartan (COZAAR) 100 mg, Oral, Daily NovoLOG FLEXPEN 100 UNIT/ML pen INJECT 15-18-20 UNITS SUBCUTANEOUSLY TO MEAL SIZE PLUS ISSUED SLIDING SCALE *EXPECTED DAILY DOSAGE: 70 UNITS* nystatin-triamcinolone (Mycolog II) cream Apply to affect area twice a day for 14 days pantoprazole (PROTONIX) 40 mg, Oral, Daily PARoxetine (PAXIL) 30 mg, Oral, Every morning potassium chloride ER (Micro-K) 10 MEQ ER capsule 10 mEq, Daily rosuvastatin (CRESTOR) 5 mg, Oral, Every evening spironolactone (ALDACTONE) 25 mg, Oral, Twice a day (morning and mid-day) Sure Comfort Pen Salix 32G X 4 MM misc 1 each, As needed tiotropium (Spiriva Respimat) 2.5 MCG/ACT inhaler 2 puffs, Inhalation, Daily Xarelto 20 MG tablet 1 tablet, Daily with evening meal ALLERGIES: Allergies Allergen Reactions Ciprofloxacin GI intolerance Metronidazole GI intolerance Penicillins GI intolerance Sulfamethoxazole GI intolerance Trimethoprim GI intolerance REVIEW OF SYMPTOMS: Review of Systems Constitutional: Positive for unexpected weight change. Negative for appetite change, chills and fever. [...] MEDICAL HISTORY Past Medical History: Diagnosis Date Abscess of left groin 10/14/2024 Acute pancreatitis without necrosis or infection, unspecified ([facility]) Anxiety and depression 07/18/2023 Atrial fibrillation ([facility]) 07/18/2023 Body mass index (BMI) 40.0-44.9, adult ([facility]) COPD mixed type ([facility]) 05/23/2023 Dietary counseling and surveillance Drug-induced acute pancreatitis ([facility]) 07/18/2023 Edema of extremities 07/18/2023 Essential (primary) hypertension 12/04/2010 GERD (gastroesophageal reflux disease) 07/18/2023 HLD (hyperlipidemia) 07/18/2023 Hx of being hospitalized PNEUMONIA [facility] (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 ([facility]) Medical non-compliance 07/18/2023 Morbid obesity with body mass index (BMI) of 40.0 to 49.9 ([facility]) 07/18/2023 Neuropathy, diabetic ([facility]) 07/18/2023 SANTO (obstructive sleep apnea) 07/18/2023 Osteoporosis 07/18/2023 Seasonal allergies 07/18/2023 Tobacco user 07/18/2023 Type 2 diabetes mellitus with complication, without long-term current use of insulin ([facility]) 07/18/2023 Urge and stress incontinence 07/18/2023 Vitamin [...] Sitting, BP Cuff Size: Adult long) Pulse 93 Temp 98.1 F (Temporal) Resp 22 Wt 167 lb SpO2 93% BMI 26.95 kg/m Smoking Status Former BSA 1.88 m Physical Exam Vitals and nursing note reviewed. Constitutional: General: She is not in acute distress. Appearance: Normal appearance. She is not ill-appearing. HENT: Head: Normocephalic [...] Pulmonary effort is normal. Breath sounds: Wheezing and rhonchi present. Abdominal: General: Bowel sounds are normal. [...] takes 2 to 3 seconds. Findings: No rash (rash significantly improved from last visit, perineal area and gluetal cleft region mild erythema). Neurological: General: No focal deficit present. Mental Status: She is alert and oriented to person, place, and time. Psychiatric: Mood and Affect: Mood normal. Behavior: Behavior normal. Thought Content: Thought content normal. Judgment: Judgment normal. ASSESSMENT AND PLAN: Follow up in about 4 weeks (around 01/11/2025) for Recheck. Problem List Items Addressed This Visit Primary hypertension Please check blood pressure daily and record DASH diet Limit caffeine Take medication as directed Contact office if chest pain, pressure, dizziness, shortness of breath, swelling legs Recommend slow position changes Current meds: b dania and arb Relevant Orders Ambulatory referral to Care Management Atrial fibrillation (HCC) No current afib Current meds: xarelto, b dania Saw cardiology in the last few weeks Stated no ASA therapy d/t DOAC Relevant Orders Ambulatory referral to Care Management Urge and stress incontinence This likely contributes to yeast Medical non-compliance Has not had fu with pulmonology Does not wear PAP as directed Not following with endo Not taking insulin as directed MOCA: 12/14/24 Had pt advocate Chandrika come to see pt and get enrolled in program Relevant Orders Ambulatory referral to Care Management Type 2 diabetes mellitus without complication, with long-term current use of insulin (HCC) - Primary Check blood sugars daily, notify if <70 or >200. Take medications (pills or insulin) as directed. Monitor for s/s of hypoglycemia (sweaty, dizziness, nausea, vomiting, or shakiness). Watch for increase in thirst, urination, or appetite. Inspect feet frequently monitoring for open wounds , and also recommend yearly eye exam. Is under care of Endo, last appts were scheduled in 09/25, according to our system these appts were cancelled Is on statin , arb , insulin Most recent A1c : 14.1% 12/14/24, 10.4 on 04/09/24 Non complaint with fu Spoke with pt about the importance of getting back to see endocrinology, as she is not taking her insulin properly adjusting dose is not going to matter Relevant Orders POCT glycosylated hemoglobin (Hb A1C) docked device (Completed) Comprehensive metabolic panel Lipid panel Ambulatory referral to Care Management Cigarette nicotine dependence without complication The patient has been advised of the risks of continued smoking: stroke, [place], all forms of cancer, lung disease, and . Options for quitting smoking include: cold turkey, hypnosis, acupuncture, nicotine replacement meds (gum, lozenges, and patches), Buproprion, and Varenicline. At this time pt is encouraged to evaluate their goals for wanting to quit smoking, and reach out to provider when ready to start this process Gill rash of groin Was prescribed at last appt diflucan and mycolog Significant improvement, but likely to continue until glucose is under control Associated Problem(s): Gill rash of groin Was prescribed at last appt diflucan and mycolog Significant improvement, but likely to continue until glucose is under control Associated Problem(s): Urge and stress incontinence This likely contributes to yeast Associated Problem(s): Cigarette nicotine dependence without complication The patient has been advised of the risks of continued smoking: stroke, [place], all forms of cancer, lung disease, and [...] complication, with long-term current use of insulin (HCC) Check blood sugars daily, notify if <70 or >200. Take medications (pills or insulin) as directed. Monitor for s/s of hypoglycemia (sweaty, dizziness, nausea, vomiting, or shakiness). Watch for increase in thirst, urination, or appetite. Inspect feet frequently monitoring for open wounds , and also recommend yearly eye exam. Is under care of Endo, last appts were scheduled in 09/25, according to our system these appts were cancelled Is on statin , arb , insulin Most recent A1c : 14.1% 12/14/24, 10.4 on 04/09/24 Non complaint with fu Spoke with pt about the importance of getting back to see endocrinology, as she is not taking her insulin properly adjusting dose is not going to matter documented in this encounter [facility] 12-14-2024 Instructions Maira Rush NP - 12/14/2024 11:30 AM EDT Chronic care mgmt documented in this encounter [facility] 12-01-2024 History of Presen t illness Narrative Associated Problem(s): Abscess of left groin resolved Associated Problem(s): Type 2 diabetes mellitus without complication, with long-term current use of insulin (HCC) Check blood sugars daily, notify if <70 or >200. Take medications (pills or insulin) as directed. Monitor for s/s of hypoglycemia (sweaty, dizziness, nausea, vomiting, or shakiness). Watch for increase in thirst, urination, or appetite. Inspect feet frequently monitoring for open wounds , and also recommend yearly eye exam. Is under care of Endo, last appts were scheduled in 09/25, according to our system these appts were cancelled Is on statin , arb , insulin Most recent A1c : 10.4 on 04/09/24 Non complaint with fu Associated Problem(s): Gill infection of genital region Discussed skin care, diflucan oral, as well as topical Will add atb for secondary infection Fu in 10 days Pt started with a rash about a week ago. She has tried nystatin power, neosporin, powder, and air drying. Pt states the skin is raw, red, and open (sheared off) Images from the original note were not included. Denae Dior is a 64 y.o. female presents with chief complaint of Diaper Rash HPI: Hx of DM type 2, uncontrolled has not seen Endo d/t vehicle problems and no transportation Rash This is a new problem. The current episode started 1 to 4 weeks ago. The problem has been rapidly worsening since onset. The affected locations include the groin and genitalia. The rash is characterized by burning, dryness, redness, swelling, scaling and itchiness. Associated with: urine incontinence. Associated symptoms include coughing and fatigue. Pertinent negatives include no congestion, diarrhea, eye pain, fever, shortness of breath, sore throat or vomiting. SUBJECTIVE: MEDICATIONS: Current Outpatient Medications Medication Instructions albuterol 2.5 mg, Nebulization, Every 6 hours PRN amoxicillin-clavulanate (Augmentin) 875-125 MG tablet 1 tablet, 2 times daily Aspirin Low Dose 81 mg, Daily budesonide-formoterol (Symbicort) 160-4.5 MCG/ACT inhaler 2 puffs, Inhalation, 2 times daily buPROPion XL (WELLBUTRIN XL) 150 mg, Oral, Every morning, Do not crush, chew, or split. Calcium Carb-Cholecalciferol (Calcium+D3) 500-10 MG-MCG tablet 1 tablet, Oral, 2 times daily carvedilol (Coreg) 12.5 MG tablet 1 tablet, 2 times daily with meals cholecalciferol (Vitamin D-3) 50 MCG (1999 UT) tablet Daily Continuous Glucose Utility Bill Complaints Investigator (FreeStyle Julisa 2 Germfask) device 1 kit, Does not apply, Every 14 days Continuous Glucose Utility Bill Complaints Investigator (FreeStyle Julisa 2 Germfask) device USE DIRECTED Continuous Glucose Sensor (FreeStyle Julisa 2 Sensor) [facility] USE TO MONITOR BLOOD SUGAR DIRECTED. CHANGE SENSOR EVERY 14 DAYS. empagliflozin (JARDIANCE) 25 mg, Oral, Daily fluconazole (Diflucan) 150 MG tablet Every 3 days for a total of 4 doses furosemide (LASIX) 20 mg, Every morning gabapentin (NEURONTIN) 600 mg, Oral, 3 times daily glucose blood (True Metrix Blood Glucose Test) test strip USE TO TEST BLOOD SUGAR FOUR TIMES A DAY insulin lispro (HumaLOG Winston KwikPen) 100 UNIT/ML pen INJECT TEN UNITS SUBCUTANEOUSLY (UNDER THE SKIN) THREE TIMES DAILY (IN THE MORNING, at noon, and IN THE EVENING) WITH MEALS insulin lispro (HUMALOG) 2-10 Units, 3 times daily with meals insulin lispro (HUMALOG) 2-10 Units, 3 times daily with meals Lantus SoloStar 100 UNIT/ML pen INJECT 60 UNITS SUBCUTANEOUSLY AT BEDTIME losartan (COZAAR) 100 mg, Oral, Daily NovoLOG FLEXPEN 100 UNIT/ML pen INJECT 15-18-20 UNITS SUBCUTANEOUSLY TO MEAL SIZE PLUS ISSUED SLIDING SCALE *EXPECTED DAILY DOSAGE: 70 UNITS* nystatin-triamcinolone (Mycolog II) cream Apply to affect area twice a day for 14 days pantoprazole (PROTONIX) 40 mg, Oral, Daily PARoxetine (PAXIL) 30 mg, Oral, Every morning potassium chloride ER (Micro-K) 10 MEQ ER capsule 10 mEq, Daily rosuvastatin (CRESTOR) 5 mg, Oral, Every evening spironolactone (ALDACTONE) 25 mg, Oral, Twice a day (morning and mid-day) Sure Comfort Pen Salix 32G X 4 MM misc 1 each, As needed tiotropium (Spiriva Respimat) 2.5 MCG/ACT inhaler 2 puffs, Inhalation, Daily Xarelto 20 MG tablet 1 tablet, Daily [...] redness and visual disturbance. Respiratory: Positive for cough. Negative for shortness of breath and wheezing. Cardiovascular: Negative for chest pain, palpitations and leg swelling. Gastrointestinal: Negative for abdominal pain, blood in stool, constipation, diarrhea, nausea and vomiting. Genitourinary: Negative for difficulty urinating, dysuria and frequency. Musculoskeletal: Negative for arthralgias, back pain, joint swelling and myalgias. Skin: Positive for rash. Negative for wound. Neurological: Negative for dizziness, tremors, seizures, syncope and headaches. Psychiatric/Behavioral: Negative for behavioral problems, self-injury and suicidal ideas. The patient is not nervous/anxious. Hematological: Does not bruise/bleed easily. Endocrine: Negative for polydipsia, polyphagia and polyuria. Allergic/Immunologic: Negative for environmental allergies and food allergies. PAST MEDICAL HISTORY Past Medical History: Diagnosis Date Acute pancreatitis without necrosis or infection, unspecified ([facility]) Anxiety and depression 07/18/2023 Atrial fibrillation ([facility]) 07/18/2023 Body mass index (BMI) 40.0-44.9, adult ([facility]) COPD mixed type ([facility]) 05/23/2023 Dietary counseling and surveillance Drug-induced acute pancreatitis ([facility]) 07/18/2023 Edema of extremities 07/18/2023 Essential (primary) hypertension 12/04/2010 GERD (gastroesophageal reflux disease) 07/18/2023 HLD (hyperlipidemia) 07/18/2023 Hx of being hospitalized PNEUMONIA [facility] (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 ([facility]) Medical non-compliance 07/18/2023 Morbid obesity with body mass index (BMI) of 40.0 to 49.9 ([facility]) 07/18/2023 Neuropathy, diabetic ([facility]) 07/18/2023 SANTO (obstructive sleep apnea) 07/18/2023 Osteoporosis 07/18/2023 Seasonal allergies 07/18/2023 Tobacco user 07/18/2023 Type 2 diabetes mellitus with complication, without long-term current use of insulin ([facility]) 07/18/2023 Urge and stress incontinence 07/18/2023 Vitamin D deficiency 07/18/2023 Past Surgical History: Procedure Laterality Date APPENDECTOMY CHOLECYSTECTOMY HYSTERECTOMY Complete not due to cancer TONSILLECTOMY family history includes Diabetes in her brother and mother; Heart disease in her mother; Hypertension in her mother; Stroke in her father. OBJECTIVE: Visit Vitals BP 110/70 (BP Location: Left arm, Patient Position: Sitting, BP Cuff Size: Adult long) Pulse 101 Temp 98.3 F (Temporal) Resp 18 Wt 171 lb 12.8 oz SpO2 95% BMI 27.73 kg/m Smoking Status Former BSA 1.9 m Physical Exam Vitals and nursing note [...] Normal range of motion and neck supple. Skin: General: Skin is warm and dry. Capillary Refill: Capillary refill takes 2 to 3 seconds. Findings: No rash (erythema, scales, rash c/w candidiasis, extensive mons pubis, groin area, extending into the intergluetal cleft). Neurological: General: No focal deficit present. Mental Status: She is alert and oriented to person, place, and time. Psychiatric: Mood and Affect: Mood normal. Behavior: Behavior normal. Thought Content: Thought content normal. Judgment: Judgment normal. ASSESSMENT AND PLAN: Follow up in about 10 days (around 12/11/2024) for Recheck. Problem List Items Addressed This Visit Type 2 diabetes mellitus without complication, with long-term current use of insulin (HCC) Check blood sugars daily, notify if <70 or >200. Take medications (pills or insulin) as directed. Monitor for s/s of hypoglycemia (sweaty, dizziness, nausea, vomiting, or shakiness). Watch for increase in thirst, urination, or appetite. Inspect feet frequently monitoring for open wounds , and also recommend yearly eye exam. Is under care of Endo, last appts were scheduled in 09/25, according to our system these appts were cancelled Is on statin , arb , insulin Most recent A1c : 10.4 on 04/09/24 Non complaint with fu Abscess of left groin resolved Gill rash of groin Gill infection of genital region - Primary Discussed skin care, diflucan oral, as well as topical Will add atb for secondary infection Fu in 10 days Relevant Medications nystatin-triamcinolone (Mycolog II) cream fluconazole (Diflucan) 150 MG tablet documented in this encounter [facility] 12-01-2024 Instructions Maira Rush NP - 12/01/2024 1:40 PM EDT Nystatin ointment twice a day to affected area documented in this encounter [facility] 10-14-2024 History of Presen t illness Narrative Associated Problem(s): Mild episode of recurrent major depressive disorder (HCC) (CMS/HCC) Stressors: spouse in assisted , also not a strong support system Current med: paxil Will add medication: will trail wellbutrin Associated Problem(s): Abscess of left groin Finish atb According to [facility] discharge notes, she was to have HH with [facility] We will need to reach out to them to see why they have not been there as of yet Fu in 2 weeks in office We also talked about proper skin care and importance of diabetes mgmt as well Associated Problem(s): Encounter for screening mammogram for malignant neoplasm of breast Order mammogram Pt needs nystatin powder Pt does not have any one helping with wound care-packing She thought [id number] was suppose to but she had called them and she is not on their list Images from the original note were not included. Denae Dior is a 64 y.o. female presents with chief complaint of Wound Check HPI: Fu hospital admission, looks like no TCM on file ER visit #1 abscess to left groin area, sent home on atb Came back a few days later worsening in pain and size. Had [facility] IV atbs discharged 10/05/24 Sent home w packing in abscess. Presents now w same packing she left hospital, some pain, no fever, is taking meds as she should no NVD. She does report her blood sugars are running 300's. She does not follow strict diabetic diet and when asked why she has not fu with Endo, she states she forgot to call. I further questioned her about her disconnect with doing what needs done, she does admit to depression secondary to her in assisted with declining health. We have adjusted her meds in more recent visits, but they do not seem to be improving her sxs. She denies any SI/HI/Hallucinations SUBJECTIVE: MEDICATIONS: Current Outpatient Medications Medication Instructions albuterol 2.5 mg, Nebulization, Every 6 hours PRN budesonide-formoterol (Symbicort) 160-4.5 MCG/ACT inhaler 2 puffs, Inhalation, 2 times daily Calcium Carb-Cholecalciferol (Calcium+D3) 500-10 MG-MCG tablet 1 tablet, Oral, 2 times daily carvedilol (Coreg) 12.5 MG tablet 1 tablet, 2 times daily with meals cholecalciferol (Vitamin D-3) 50 MCG (1999) tablet Daily clindamycin (CLEOCIN) 300 mg, Oral, 4 times daily Continuous Glucose Utility Bill Complaints Investigator (FreeStyle Julisa 2 Germfask) device 1 kit, Does not apply, Every 14 days Continuous Glucose Utility Bill Complaints Investigator (FreeStyle Julisa 2 Germfask) device USE DIRECTED Continuous Glucose Sensor (FreeStyle Julisa 2 Sensor) misc 1 kit, Does not apply, Every 14 days empagliflozin (JARDIANCE) 25 mg, Oral, Daily furosemide (LASIX) 20 mg, Every morning gabapentin (NEURONTIN) 600 mg, Oral, 3 times daily glucose blood (True Metrix Blood Glucose Test) test strip USE TO TEST BLOOD SUGAR FOUR TIMES A DAY insulin lispro (HumaLOG Winston KwikPen) 100 UNIT/ML pen INJECT TEN UNITS SUBCUTANEOUSLY (UNDER THE SKIN) THREE TIMES DAILY (IN THE MORNING, at noon, and IN THE EVENING) WITH MEALS insulin lispro (HUMALOG) 2-10 Units, 3 times daily with meals insulin lispro (HUMALOG) 2-10 Units, 3 times daily with meals Lantus SoloStar 100 UNIT/ML pen INJECT 60 UNITS SUBCUTANEOUSLY AT BEDTIME losartan (COZAAR) 100 mg, Oral, Daily NovoLOG FLEXPEN 100 UNIT/ML pen INJECT 15-18-20 UNITS SUBCUTANEOUSLY TO MEAL SIZE PLUS ISSUED SLIDING SCALE *EXPECTED DAILY DOSAGE: 70 UNITS* pantoprazole (PROTONIX) 40 mg, Oral, Daily PARoxetine (PAXIL) 30 mg, Oral, Every morning rosuvastatin (CRESTOR) 5 mg, Oral, Every evening spironolactone (ALDACTONE) 25 mg, Oral, Twice a day (morning and mid-day) Sure Comfort Pen Salix 32G X 4 MM misc 1 each, As needed tiotropium (Spiriva Respimat) 2.5 MCG/ACT inhaler 2 puffs, Inhalation, Daily Xarelto 20 MG tablet 1 tablet, Daily [...] suicidal ideas. The patient is not nervous/anxious. Depression Hematological: Does not bruise/bleed easily. Endocrine: Negative for polydipsia, polyphagia and polyuria. Allergic/Immunologic: Negative for environmental allergies and food allergies. PAST MEDICAL HISTORY Past Medical History: Diagnosis Date Acute pancreatitis without necrosis or infection, unspecified Anxiety and depression ([facility]) 07/18/2023 Atrial fibrillation ([facility]) 07/18/2023 Body mass index (BMI) 40.0-44.9, adult ([facility]) COPD mixed type ([facility]) 05/23/2023 Dietary counseling and surveillance Drug-induced acute pancreatitis 07/18/2023 Edema of extremities 07/18/2023 Essential (primary) hypertension ([facility]) 12/04/2010 GERD (gastroesophageal reflux disease) 07/18/2023 HLD (hyperlipidemia) ([facility]) 07/18/2023 Hx of being hospitalized PNEUMONIA [facility] (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 ([facility]) Medical non-compliance 07/18/2023 Morbid obesity with body mass index (BMI) of 40.0 to 49.9 ([facility]) 07/18/2023 Neuropathy, diabetic ([facility]) 07/18/2023 SANTO (obstructive sleep apnea) 07/18/2023 Osteoporosis ([facility]) 07/18/2023 Seasonal allergies 07/18/2023 Tobacco user 07/18/2023 Type 2 diabetes mellitus with complication, without long-term current use of insulin ([facility]) 07/18/2023 Urge and stress incontinence 07/18/2023 Vitamin D deficiency 07/18/2023 Past Surgical History: Procedure Laterality Date APPENDECTOMY CHOLECYSTECTOMY HYSTERECTOMY Complete not due to cancer TONSILLECTOMY family history includes Diabetes in her brother and mother; Heart disease in her mother; Hypertension in her mother; Stroke in her father. OBJECTIVE: Visit Vitals Wt 188 lb 3.2 oz BMI 30.38 kg/m Smoking Status Former BSA 1.99 m Physical Exam Vitals and nursing note [...] Pulmonary effort is normal. Breath sounds: Wheezing (faint exp) present. No rhonchi. Abdominal: General: Bowel sounds are normal. [...] to 3 seconds. Findings: No rash. Comments: Wound: left groin, packing removed, sm amount yellow drainage noted Opening is 1cm wide, and approx 5mm deep. New packing applied, prior to new packing, wound was cleansed with NS Dry dressing applied over. Surrounding area mild induration, no other drainage can be expressed Under pannus and suprapubic region there was erythematous skin with odor c/w yeast Neurological: General: No focal deficit present. Mental Status: She is alert and oriented to person, place, and time. Psychiatric: Mood and Affect: Mood normal. Behavior: Behavior normal. Thought Content: Thought content normal. Judgment: Judgment normal. ASSESSMENT AND PLAN: No follow-ups on file. Problem List Items Addressed This Visit Primary hypertension (CMS/HCC) - Primary Please check blood pressure daily and record DASH diet Limit caffeine Take medication as directed Contact office if chest pain, pressure, dizziness, shortness of breath, swelling legs Recommend slow position changes Current meds: b dania and arb Encounter for screening mammogram for malignant neoplasm of breast Order mammogram Relevant Orders Bilateral screening mammogram Type 2 diabetes mellitus without complication, with long-term current use of insulin Check blood sugars daily, notify if <70 or >200. Take medications (pills or insulin) as directed. Monitor for s/s of hypoglycemia (sweaty, dizziness, nausea, vomiting, or shakiness). Watch for increase in thirst, urination, or appetite. Inspect feet frequently monitoring for open wounds , and also recommend yearly eye exam. Is under care of karolyn Nevarez appts were scheduled in 09/25, according to our system these appts were cancelled Is on statin , arb , insulin Most recent A1c : 10.4 on 04/09/24 Cigarette nicotine dependence without complication The patient has been advised of the risks of continued smoking: stroke, [place], all forms of cancer, lung disease, and . Options for quitting smoking include: cold turkey, hypnosis, acupuncture, nicotine replacement meds (gum, lozenges, and patches), Buproprion, and Varenicline. At this time pt is encouraged to evaluate their goals for wanting to quit smoking, and reach out to provider when ready to start this process Abscess of left groin Finish atb According to [facility] discharge notes, she was to have HH with [facility] We will need to reach out to them to see why they have not been there as of yet Fu in 2 weeks in office We also talked about proper skin care and importance of diabetes mgmt as well Gill rash of groin Relevant Medications nystatin (Mycostatin) cream Associated Problem(s): Cigarette nicotine dependence without complication The patient has been advised of the risks of continued smoking: stroke, [place], all forms of cancer, lung disease, and [...] complication, with long-term current use of insulin Check blood sugars daily, notify if <70 or >200. Take medications (pills or insulin) as directed. Monitor for s/s of hypoglycemia (sweaty, dizziness, nausea, vomiting, or shakiness). Watch for increase in thirst, urination, or appetite. Inspect feet frequently monitoring for open wounds , and also recommend yearly eye exam. Is under care of karolyn Nevarez appts were scheduled in 09/25, according to our system these appts were cancelled Is on statin , arb , insulin Most recent A1c : 10.4 on 04/09/24 Associated Problem(s): Primary hypertension (CMS/HCC) Please check blood pressure daily and record DASH diet Limit caffeine Take medication as directed Contact office if chest pain, pressure, dizziness, shortness of breath, swelling legs Recommend slow position changes Current meds: b dania and arb documented in this encounter [facility] 08-06-2024 History of Presen t illness Narrative September- dr kalina Bender-pulmonology (walk test) 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 Images from the original note were not included. Denae Dior is a 64 y.o. female presents with chief complaint of JORDAN HPI: GERD She complains of belching, coughing and wheezing. She reports no abdominal pain, no chest pain, no dysphagia, no early satiety, no hoarse voice, no nausea or no sore throat. This is a chronic problem. The current episode started more than 1 year ago. The problem occurs constantly. The symptoms are aggravated by certain foods, caffeine, stress and smoking. Pertinent negatives include no fatigue. Risk factors include caffeine use, obesity and smoking/tobacco exposure. She has tried a PPI for the symptoms. The treatment provided moderate relief. Past procedures include an EGD. Depression Visit Type: follow-up Patient presents with the following symptoms: depressed mood, excessive worry, nervousness/anxiety and shortness of breath. Patient is not experiencing: anhedonia, irritability, memory impairment, palpitations, suicidal ideas, suicidal planning and thoughts of . Frequency of symptoms: most days Severity: mild Sleep per night: 4 hours Sleep quality: fair Nighttime awakenings: none Compliance with medications: 76-100% Anxiety Presents for follow-up visit. Symptoms include depressed mood, excessive worry, nervous/anxious behavior and shortness of breath. Patient reports no chest pain, dizziness, irritability, nausea, palpitations or suicidal ideas. Symptoms occur most days. The severity of symptoms is mild. The quality of sleep is fair. Nighttime awakenings: none. Compliance with medications is 76-100%. SUBJECTIVE: MEDICATIONS: Current Outpatient Medications Medication Instructions albuterol 2.5 mg, Nebulization, Every 6 hours PRN Alcohol Swabs (Alcohol Prep) 70 % pads 1 each, Other, 5 times daily budesonide-formoterol (Symbicort) 160-4.5 MCG/ACT inhaler 2 puffs, Inhalation, 2 times daily, Rinse mouth after use Calcium+D3 500-10 MG-MCG tablet 1 tablet, 2 times daily carvedilol (Coreg) 12.5 MG tablet 1 tablet, 2 times daily with meals cholecalciferol (Vitamin D-3) 50 MCG (1999 [place]) tablet Daily Continuous Glucose Utility Bill Complaints Investigator (FreeStyle Julisa 2 Germfask) device 1 kit, Does not apply, Every 14 days Continuous Glucose Utility Bill Complaints Investigator (FreeStyle Julisa 2 Germfask) device USE DIRECTED Continuous Glucose Sensor (FreeStyle [...] 2-10 Units, 3 times daily with meals insulin lispro (HUMALOG) 2-10 Units, 3 times daily with meals Lantus SoloStar 100 UNIT/ML pen INJECT 40 UNITS SUBCUTANEOUSLY (UNDER THE SKIN) losartan (COZAAR) 100 mg, Oral, Daily NovoLOG FLEXPEN 100 UNIT/ML pen INJECT 15-18-20 UNITS SUBCUTANEOUSLY TO MEAL SIZE PLUS ISSUED SLIDING SCALE *EXPECTED DAILY DOSAGE: 70 UNITS* pantoprazole (PROTONIX) 40 mg, Oral, Daily PARoxetine (PAXIL) 30 mg, Oral, Every morning potassium chloride ER (Micro-K) 10 MEQ ER capsule 10 mEq, Daily rosuvastatin (CRESTOR) 5 mg, Oral, Every evening spironolactone (ALDACTONE) 25 mg, Oral, Twice a day (morning and mid-day) Sure Comfort Pen Salix 32G X 4 MM misc 1 each, As needed tiotropium (Spiriva Respimat) 2.5 MCG/ACT [...] Systems Constitutional: Negative for appetite change, chills, fatigue, fever and irritability. HENT: Negative for congestion, ear pain, hoarse voice and sore throat. Eyes: Negative for pain, discharge, redness and visual disturbance. Respiratory: Positive for cough, shortness of breath and wheezing. Cardiovascular: Negative for chest pain, palpitations and leg swelling. Gastrointestinal: Negative for abdominal pain, blood in stool, constipation, diarrhea, dysphagia, nausea and vomiting. GERD Genitourinary: Negative for difficulty urinating, dysuria and frequency. Musculoskeletal: Negative for arthralgias, back pain, joint swelling and myalgias. Skin: Negative for rash and wound. Neurological: Negative for dizziness, tremors, seizures, syncope and headaches. Psychiatric/Behavioral: Positive for depression. Negative for behavioral problems, self-injury and suicidal ideas. The patient is nervous/anxious. Depression Hematological: Does not bruise/bleed easily. Endocrine: Negative for polydipsia, polyphagia and polyuria. Allergic/Immunologic: Negative for environmental allergies and food allergies. PAST MEDICAL HISTORY Past Medical History: Diagnosis Date Acute pancreatitis without necrosis or infection, unspecified Anxiety and depression ([facility]) 07/18/2023 Atrial fibrillation ([facility]) 07/18/2023 Body mass index (BMI) 40.0-44.9, adult ([facility]) COPD mixed type ([facility]) 05/23/2023 Dietary counseling and surveillance Drug-induced acute pancreatitis 07/18/2023 Edema of extremities 07/18/2023 Essential (primary) hypertension ([facility]) 12/04/2010 GERD (gastroesophageal reflux disease) 07/18/2023 HLD (hyperlipidemia) ([facility]) 07/18/2023 Hx of being hospitalized PNEUMONIA [facility] (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 ([facility]) Medical non-compliance 07/18/2023 Morbid obesity with body mass index (BMI) of 40.0 to 49.9 ([facility]) 07/18/2023 Neuropathy, diabetic ([facility]) 07/18/2023 SANTO (obstructive sleep apnea) 07/18/2023 Osteoporosis ([facility]) 07/18/2023 Seasonal allergies 07/18/2023 Tobacco user 07/18/2023 Type 2 diabetes mellitus with complication, without long-term current use of insulin ([facility]) 07/18/2023 Urge and stress incontinence 07/18/2023 Vitamin D deficiency 07/18/2023 Past Surgical History: Procedure Laterality Date APPENDECTOMY CHOLECYSTECTOMY HYSTERECTOMY Complete not due to cancer TONSILLECTOMY family history includes Diabetes in her brother and mother; Heart disease in her mother; Hypertension in her mother; Stroke in her father. OBJECTIVE: Visit Vitals BP 140/84 (BP Location: Left arm, Patient Position: Sitting, BP Cuff Size: Adult long) Pulse 78 Temp 98.5 F (Temporal) Resp 20 Ht 5' 6 Wt 209 lb 12.8 oz SpO2 93% BMI 33.86 kg/m Smoking Status Former BSA 2.11 m Physical Exam Vitals and nursing note reviewed. Constitutional: General: She is not in acute distress. Appearance: Normal appearance. She is obese. HENT: Head: Normocephalic and atraumatic. Right Ear: External ear normal. Left Ear: External ear normal. Nose: Nose normal. Mouth/Throat: Mouth: Mucous membranes are moist. Eyes: Extraocular Movements: Extraocular movements intact. Conjunctiva/sclera: Conjunctivae normal. Cardiovascular: Rate and Rhythm: Normal rate and regular rhythm. Pulses: Normal pulses. Heart sounds: Normal heart sounds. Pulmonary: Effort: Pulmonary effort is normal. Breath sounds: Wheezing present. Abdominal: General: Bowel sounds are normal. [...] oriented to person, place, and time. Psychiatric: Behavior: Behavior normal. Thought Content: Thought content normal. Judgment: Judgment normal. Comments: Tearful talking about spouse ASSESSMENT AND PLAN: Follow up in about 3 months (around 11/06/2024) for Recheck. 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: has a walk test coming up Recommend follow up Primary hypertension (CMS/HCC) Please check blood pressure daily and record DASH diet Limit caffeine Take medication as directed Contact office if chest pain, pressure, dizziness, shortness of breath, swelling legs Recommend slow position changes Current meds: b dania and arb Relevant Medications losartan (Cozaar) 100 MG tablet spironolactone (Aldactone) 25 MG tablet JORDAN (generalized anxiety disorder) ([facility]) - Primary Current med: paxil Stressors: spouse in assisted, pt does not have a large support system JORDAN 7=5 Will increase paxil to 30mg Pt is requesting an emotional support animal (YARIEL) for the diagnosis of mental health. I have discussed with patient that if they are to obtain an YARIEL that they are responsible for keeping the animal's health and immunization status UTD. Also it has been explained to the patient that if this animal were to injure a person that it is the responsibility of the polisher aluminum of the YARIEL, no this healthcare provider. The patient verbalizes understanding of this . Has a cat Relevant Medications PARoxetine (Paxil) 30 MG tablet SANTO (obstructive sleep apnea) Non compliance , has been instructed in the past on importance of need to wear PAP Not wearing risk stroke, [place], Atrial fibrillation ([facility]) No current afib Current meds: giorgio wise dania Saw cardiology in the last few weeks Stated no ASA therapy d/t DOAC GERD (gastroesophageal reflux disease) Recommendations: freq small meals, nothing to eat or drink at least 2 hours prior to bed, limit caffeine, alcohol, as well as spicy foods Meds to limit or avoid if possible: NSAIDS Elevate HOB if possible Current med: pantoprazole Relevant Medications pantoprazole (ProtoNix) 40 MG EC tablet Edema of extremities Relevant Medications spironolactone (Aldactone) 25 MG tablet Medical non-compliance Has not had fu with pulmonology Does not wear PAP as directed HLD (hyperlipidemia) ([facility]) Relevant Medications rosuvastatin (Crestor) 5 MG tablet RESOLVED: Anxiety and depression ([facility]) Encounter for screening mammogram for malignant neoplasm of breast Relevant Orders Bilateral screening mammogram Obesity (BMI 30-39.9) Discussed with patient their BMI (actual, verses recommended). We have also discussed lifestyle modifications: attempts to perform physical activity as chronic conditions allow, also to monitor dietary intake: increasing protein/fruits/veggies and lowering carb intake (unless contraindicated). Limit sodas, juices, and sugary drinks. Type 2 diabetes mellitus without complication, with long-term current use of insulin ([facility]) Check blood sugars daily, notify if <70 or >200. Take medications (pills or insulin) as directed. Monitor for s/s of hypoglycemia (sweaty, dizziness, nausea, vomiting, or shakiness). Watch for increase in thirst, urination, or appetite. Inspect feet frequently monitoring for open wounds , and also recommend yearly eye exam. 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 I have discussed with patient that if they are to obtain an YARIEL that they are responsible for keeping the animal's health and immunization status UTD. Also it has been explained to the patient that if this animal were to injure a person that it is the responsibility of the polisher aluminum of the YARIEL, no this healthcare provider. The patient verbalizes understanding of this . Has a cat Relevant Medications PARoxetine (Paxil) 30 MG tablet Cigarette nicotine dependence without complication The patient has been advised of the risks of continued smoking: stroke, [place], all forms of cancer, lung disease, and . Options for quitting smoking include: cold turkey, hypnosis, acupuncture, nicotine replacement meds (gum, lozenges, and patches), Buproprion, and Varenicline. At this time pt is encouraged to evaluate their goals for wanting to quit smoking, and reach out to provider when ready to start this process Other Visit Diagnoses Diabetic polyneuropathy associated with type 2 diabetes mellitus ([facility]) Relevant Medications gabapentin (Neurontin) 600 MG tablet Associated Problem(s): Cigarette nicotine dependence without complication The patient has been advised of the risks of continued smoking: stroke, [place], all forms of cancer, lung disease, and . Options for quitting smoking include: cold turkey, hypnosis, acupuncture, nicotine replacement meds (gum, lozenges, and patches), Buproprion, and Varenicline. At this time pt is encouraged to evaluate their goals for wanting to quit smoking, and reach out to provider when ready to start this process Associated Problem(s): Mild episode of recurrent major depressive disorder (HCC) (CMS/HCC) Stressors: spouse in assisted , also not a strong support system Current med: paxil PHQ 9=3 Increase paxil to 30mg Pt is requesting an emotional support animal (YARIEL) for the diagnosis of mental health. I have discussed with patient that if they are to obtain an YARIEL that they are responsible for keeping the animal's health and immunization status UTD. Also it has been explained to the patient that if this animal were to injure a person that it is the responsibility of the polisher aluminum of the YARIEL, no this healthcare provider. The patient verbalizes understanding of this . Has a cat Associated Problem(s): JORDAN (generalized anxiety disorder) ([facility]) Current med: paxil Stressors: spouse in assisted, pt does not have a large support system JORDAN 7=5 Will increase paxil to 30mg Pt is requesting an emotional support animal (YARIEL) for the diagnosis of mental health. I have discussed with patient that if they are to obtain an YARIEL that they are responsible for keeping the animal's health and immunization status UTD. Also it has been explained to the patient that if this animal were to injure a person that it is the responsibility of the polisher aluminum of the YARIEL, no this healthcare provider. The patient verbalizes understanding of this . Has a cat Associated Problem(s): Medical non-compliance Has not had fu with pulmonology Does not wear PAP as directed Associated Problem(s): Type 2 diabetes mellitus without complication, with long-term current use of insulin ([facility]) Check blood sugars daily, notify if <70 or >200. Take medications (pills or insulin) as directed. Monitor for s/s of hypoglycemia (sweaty, dizziness, nausea, vomiting, or shakiness). Watch for increase in thirst, urination, or appetite. Inspect feet frequently monitoring for open wounds , and also recommend yearly eye exam. Is under care of Endo, next appt is 09/25 Is on statin , arb Most recent A1c : 10.4 on 04/09/24 Associated Problem(s): Obesity (BMI 30-39.9) Discussed with patient their BMI (actual, verses recommended). We have also discussed lifestyle modifications: attempts to perform physical activity as chronic conditions allow, also to monitor dietary intake: increasing protein/fruits/veggies and lowering carb intake (unless contraindicated). Limit sodas, juices, and sugary drinks. Associated Problem(s): GERD (gastroesophageal reflux disease) Recommendations: freq small meals, nothing to eat or drink at least 2 hours prior to bed, limit caffeine, alcohol, as well as spicy foods Meds to limit or avoid if possible: NSAIDS Elevate HOB if possible Current med: pantoprazole Associated Problem(s): Primary hypertension (CMS/HCC) Please check blood pressure daily and record DASH diet Limit caffeine Take medication as directed Contact office if chest pain, pressure, dizziness, shortness of breath, swelling legs Recommend slow position changes Current meds: b dania and arb Associated Problem(s): Atrial fibrillation (CMS/HCC) No current afib Current meds: xarelto, b dania Saw cardiology in the last few weeks Stated no ASA therapy d/t DOAC Associated Problem(s): COPD mixed type (CMS/HCC) Recommend quitting smoking Continue inhalers 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: has a walk test coming up Recommend follow up Associated Problem(s): Type 2 diabetes mellitus with diabetic polyneuropathy (CMS/HCC) Takes gabapentin OARRS reviewed Recommend freq foot checks for wounds, recommend proper fitting footwear as well as adequate diabetic control Associated Problem(s): SANTO (obstructive sleep apnea) Non compliance , has been instructed in the past on importance of need to wear PAP Not wearing risk stroke, [place], documented in this encounter [facility] 08-06-2024 History of Presen t illness Narrative September- dr allison October-pulmonology (walk test) 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 Images from the original note were not included. Denae Dior is a 64 y.o. female presents with chief complaint of JORDAN HPI: GERD She complains of belching, coughing and wheezing. She reports no abdominal pain, no chest pain, no dysphagia, no early satiety, no hoarse voice, no nausea or no sore throat. This is a chronic problem. The current episode started more than 1 year ago. The problem occurs constantly. The symptoms are aggravated by certain foods, caffeine, stress and smoking. Pertinent negatives include no fatigue. Risk factors include caffeine use, obesity and smoking/tobacco exposure. She has tried a PPI for the symptoms. The treatment provided moderate relief. Past procedures include an EGD. Depression Visit Type: follow-up Patient presents with the following symptoms: depressed mood, excessive worry, nervousness/anxiety and shortness of breath. Patient is not experiencing: anhedonia, irritability, memory impairment, palpitations, suicidal ideas, suicidal planning and thoughts of . Frequency of symptoms: most days Severity: mild Sleep per night: 4 hours Sleep quality: fair Nighttime awakenings: none Compliance with medications: 76-100% Anxiety Presents for follow-up visit. Symptoms include depressed mood, excessive worry, nervous/anxious behavior and shortness of breath. Patient reports no chest pain, dizziness, irritability, nausea, palpitations or suicidal ideas. Symptoms occur most days. The severity of symptoms is mild. The quality of sleep is fair. Nighttime awakenings: none. Compliance with medications is 76-100%. SUBJECTIVE: MEDICATIONS: Current Outpatient Medications Medication Instructions albuterol 2.5 mg, Nebulization, Every 6 hours PRN Alcohol Swabs (Alcohol Prep) 70 % pads 1 each, Other, 5 times daily budesonide-formoterol (Symbicort) 160-4.5 MCG/ACT inhaler 2 puffs, Inhalation, 2 times daily, Rinse mouth after use Calcium+D3 500-10 MG-MCG tablet 1 tablet, 2 times daily carvedilol (Coreg) 12.5 MG tablet 1 tablet, 2 times daily with meals cholecalciferol (Vitamin D-3) 50 MCG (2000 UT) tablet Daily Continuous Glucose Utility Bill Complaints Investigator (FreeStyle Julisa 2 Germfask) device 1 kit, Does not apply, Every 14 days Continuous Glucose Utility Bill Complaints Investigator (FreeStyle Julisa 2 Germfask) device USE DIRECTED Continuous Glucose Sensor (FreeStyle [...] 2-10 Units, 3 times daily with meals insulin lispro (HUMALOG) 2-10 Units, 3 times daily with meals Lantus SoloStar 100 UNIT/ML pen INJECT 40 UNITS SUBCUTANEOUSLY (UNDER THE SKIN) losartan (COZAAR) 100 mg, Oral, Daily NovoLOG FLEXPEN 100 UNIT/ML pen INJECT 15-18-20 UNITS SUBCUTANEOUSLY TO MEAL SIZE PLUS ISSUED SLIDING SCALE *EXPECTED DAILY DOSAGE: 70 UNITS* pantoprazole (PROTONIX) 40 mg, Oral, Daily PARoxetine (PAXIL) 30 mg, Oral, Every morning potassium chloride ER (Micro-K) 10 MEQ ER capsule 10 mEq, Daily rosuvastatin (CRESTOR) 5 mg, Oral, Every evening spironolactone (ALDACTONE) 25 mg, Oral, Twice a day (morning and mid-day) Sure Comfort Pen Salix 32G X 4 MM misc 1 each, As needed tiotropium (Spiriva Respimat) 2.5 MCG/ACT [...] Systems Constitutional: Negative for appetite change, chills, fatigue, fever and irritability. HENT: Negative for congestion, ear pain, hoarse voice and sore throat. Eyes: Negative for pain, discharge, redness and visual disturbance. Respiratory: Positive for cough, shortness of breath and wheezing. Cardiovascular: Negative for chest pain, palpitations and leg swelling. Gastrointestinal: Negative for abdominal pain, blood in stool, constipation, diarrhea, dysphagia, nausea and vomiting. GERD Genitourinary: Negative for difficulty urinating, dysuria and frequency. Musculoskeletal: Negative for arthralgias, back pain, joint swelling and myalgias. Skin: Negative for rash and wound. Neurological: Negative for dizziness, tremors, seizures, syncope and headaches. Psychiatric/Behavioral: Positive for depression. Negative for behavioral problems, self-injury and suicidal ideas. The patient is nervous/anxious. Depression Hematological: Does not bruise/bleed easily. Endocrine: Negative for polydipsia, polyphagia and polyuria. Allergic/Immunologic: Negative for environmental allergies and food allergies. PAST MEDICAL HISTORY Past Medical History: Diagnosis Date Acute pancreatitis without necrosis or infection, unspecified Anxiety and depression ([facility]) 07/18/2023 Atrial fibrillation ([facility]) 07/18/2023 Body mass index (BMI) 40.0-44.9, adult ([facility]) COPD mixed type ([facility]) 05/23/2023 Dietary counseling and surveillance Drug-induced acute pancreatitis 07/18/2023 Edema of extremities 07/18/2023 Essential (primary) hypertension ([facility]) 12/04/2010 GERD (gastroesophageal reflux disease) 07/18/2023 HLD (hyperlipidemia) ([facility]) 07/18/2023 Hx of being hospitalized PNEUMONIA [facility] (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 ([facility]) Medical non-compliance 07/18/2023 Morbid obesity with body mass index (BMI) of 40.0 to 49.9 ([facility]) 07/18/2023 Neuropathy, diabetic ([facility]) 07/18/2023 SANTO (obstructive sleep apnea) 07/18/2023 Osteoporosis ([facility]) 07/18/2023 Seasonal allergies 07/18/2023 Tobacco user 07/18/2023 Type 2 diabetes mellitus with complication, without long-term current use of insulin ([facility]/HCC) 07/18/2023 Urge and stress incontinence 07/18/2023 Vitamin D deficiency 07/18/2023 Past Surgical History: Procedure Laterality Date APPENDECTOMY CHOLECYSTECTOMY HYSTERECTOMY Complete not due to cancer TONSILLECTOMY family history includes Diabetes in her brother and mother; Heart disease in her mother; Hypertension in her mother; Stroke in her father. OBJECTIVE: Visit Vitals BP 140/84 (BP Location: Left arm, Patient Position: Sitting, BP Cuff Size: Adult long) Pulse 78 Temp 98.5 F (Temporal) Resp 20 Ht 5' 6 Wt 209 lb 12.8 oz SpO2 93% BMI 33.86 kg/m Smoking Status Former BSA 2.11 m Physical Exam Vitals and nursing note reviewed. Constitutional: General: She is not in acute distress. Appearance: Normal appearance. She is obese. HENT: Head: Normocephalic and atraumatic. Right Ear: External ear normal. Left Ear: External ear normal. Nose: Nose normal. Mouth/Throat: Mouth: Mucous membranes are moist. Eyes: Extraocular Movements: Extraocular movements intact. Conjunctiva/sclera: Conjunctivae normal. Cardiovascular: Rate and Rhythm: Normal rate and regular rhythm. Pulses: Normal pulses. Heart sounds: Normal heart sounds. Pulmonary: Effort: Pulmonary effort is normal. Breath sounds: Wheezing present. Abdominal: General: Bowel sounds are normal. [...] oriented to person, place, and time. Psychiatric: Behavior: Behavior normal. Thought Content: Thought content normal. Judgment: Judgment normal. Comments: Tearful talking about spouse ASSESSMENT AND PLAN: Follow up in about 3 months (around 11/06/2024) for Recheck. 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: has a walk test coming up Recommend follow up Primary hypertension ([facility]) Please check blood pressure daily and record DASH diet Limit caffeine Take medication as directed Contact office if chest pain, pressure, dizziness, shortness of breath, swelling legs Recommend slow position changes Current meds: b dania and arb Relevant Medications losartan (Cozaar) 100 MG tablet spironolactone (Aldactone) 25 MG tablet JORDAN (generalized anxiety disorder) ([facility]) - Primary Current med: paxil Stressors: spouse in assisted, pt does not have a large support system JORDAN 7=5 Will increase paxil to 30mg Pt is requesting an emotional support animal (YARIEL) for the diagnosis of mental health. I have discussed with patient that if they are to obtain an YARIEL that they are responsible for keeping the animal's health and immunization status UTD. Also it has been explained to the patient that if this animal were to injure a person that it is the responsibility of the polisher aluminum of the YARIEL, no this healthcare provider. The patient verbalizes understanding of this . Has a cat Relevant Medications PARoxetine (Paxil) 30 MG tablet SANTO (obstructive sleep apnea) Non compliance , has been instructed in the past on importance of need to wear PAP Not wearing risk stroke, [place], Atrial fibrillation ([facility]) No current afib Current meds: frandy b dania Saw cardiology in the last few weeks Stated no ASA therapy d/t DOAC GERD (gastroesophageal reflux disease) Recommendations: freq small meals, nothing to eat or drink at least 2 hours prior to bed, limit caffeine, alcohol, as well as spicy foods Meds to limit or avoid if possible: NSAIDS Elevate HOB if possible Current med: pantoprazole Relevant Medications pantoprazole (ProtoNix) 40 MG EC tablet Edema of extremities Relevant Medications spironolactone (Aldactone) 25 MG tablet Medical non-compliance Has not had fu with pulmonology Does not wear PAP as directed HLD (hyperlipidemia) ([facility]) Relevant Medications rosuvastatin (Crestor) 5 MG tablet RESOLVED: Anxiety and depression ([facility]) Encounter for screening mammogram for malignant neoplasm of breast Relevant Orders Bilateral screening mammogram Obesity (BMI 30-39.9) Discussed with patient their BMI (actual, verses recommended). We have also discussed lifestyle modifications: attempts to perform physical activity as chronic conditions allow, also to monitor dietary intake: increasing protein/fruits/veggies and lowering carb intake (unless contraindicated). Limit sodas, juices, and sugary drinks. Type 2 diabetes mellitus without complication, with long-term current use of insulin ([facility]) Check blood sugars daily, notify if <70 or >200. Take medications (pills or insulin) as directed. Monitor for s/s of hypoglycemia (sweaty, dizziness, nausea, vomiting, or shakiness). Watch for increase in thirst, urination, or appetite. Inspect feet frequently monitoring for open wounds , and also recommend yearly eye exam. 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 I have discussed with patient that if they are to obtain an YARIEL that they are responsible for keeping the animal's health and immunization status UTD. Also it has been explained to the patient that if this animal were to injure a person that it is the responsibility of the polisher aluminum of the YARIEL, no this healthcare provider. The patient verbalizes understanding of this . Has a cat Relevant Medications PARoxetine (Paxil) 30 MG tablet Cigarette nicotine dependence without complication The patient has been advised of the risks of continued smoking: stroke, [place], all forms of cancer, lung disease, and . Options for quitting smoking include: cold turkey, hypnosis, acupuncture, nicotine replacement meds (gum, lozenges, and patches), Buproprion, and Varenicline. At this time pt is encouraged to evaluate their goals for wanting to quit smoking, and reach out to provider when ready to start this process Other Visit Diagnoses Diabetic polyneuropathy associated with type 2 diabetes mellitus ([facility]) Relevant Medications gabapentin (Neurontin) 600 MG tablet Associated Problem(s): Cigarette nicotine dependence without complication The patient has been advised of the risks of continued smoking: stroke, [place], all forms of cancer, lung disease, and . Options for quitting smoking include: cold turkey, hypnosis, acupuncture, nicotine replacement meds (gum, lozenges, and patches), Buproprion, and Varenicline. At this time pt is encouraged to evaluate their goals for wanting to quit smoking, and reach out to provider when ready to start this process Associated Problem(s): Mild episode of recurrent major depressive disorder (HCC) (CMS/HCC) Stressors: spouse in assisted , also not a strong support system Current med: paxil PHQ 9=3 Increase paxil to 30mg Pt is requesting an emotional support animal (YARIEL) for the diagnosis of mental health. I have discussed with patient that if they are to obtain an YARIEL that they are responsible for keeping the animal's health and immunization status UTD. Also it has been explained to the patient that if this animal were to injure a person that it is the responsibility of the polisher aluminum of the YARIEL, no this healthcare provider. The patient verbalizes understanding of this . Has a cat Associated Problem(s): JORDAN (generalized anxiety disorder) (CMS/HCC) Current med: paxil Stressors: spouse in assisted, pt does not have a large support system JORDAN 7=5 Will increase paxil to 30mg Pt is requesting an emotional support animal (YARIEL) for the diagnosis of mental health. I have discussed with patient that if they are to obtain an YARIEL that they are responsible for keeping the animal's health and immunization status UTD. Also it has been explained to the patient that if this animal were to injure a person that it is the responsibility of the polisher aluminum of the YARIEL, no this healthcare provider. The patient verbalizes understanding of this . Has a cat Associated Problem(s): Medical non-compliance Has not had fu with pulmonology Does not wear PAP as directed Associated Problem(s): Type 2 diabetes mellitus without complication, with long-term current use of insulin ([facility]) Check blood sugars daily, notify if <70 or >200. Take medications (pills or insulin) as directed. Monitor for s/s of hypoglycemia (sweaty, dizziness, nausea, vomiting, or shakiness). Watch for increase in thirst, urination, or appetite. Inspect feet frequently monitoring for open wounds , and also recommend yearly eye exam. Is under care of Endo, next appt is 09/25 Is on statin , arb Most recent A1c : 10.4 on 04/09/24 Associated Problem(s): Obesity (BMI 30-39.9) Discussed with patient their BMI (actual, verses recommended). We have also discussed lifestyle modifications: attempts to perform physical activity as chronic conditions allow, also to monitor dietary intake: increasing protein/fruits/veggies and lowering carb intake (unless contraindicated). Limit sodas, juices, and sugary drinks. Associated Problem(s): GERD (gastroesophageal reflux disease) Recommendations: freq small meals, nothing to eat or drink at least 2 hours prior to bed, limit caffeine, alcohol, as well as spicy foods Meds to limit or avoid if possible: NSAIDS Elevate HOB if possible Current med: pantoprazole Associated Problem(s): Primary hypertension (CMS/HCC) Please check blood pressure daily and record DASH diet Limit caffeine Take medication as directed Contact office if chest pain, pressure, dizziness, shortness of breath, swelling legs Recommend slow position changes Current meds: b dania and arb Associated Problem(s): Atrial fibrillation (CMS/HCC) No current afib Current meds: xarelto, b dania Saw cardiology in the last few weeks Stated no ASA therapy d/t DOAC Associated Problem(s): COPD mixed type (CMS/HCC) Recommend quitting smoking Continue inhalers 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: has a walk test coming up Recommend follow up Associated Problem(s): Type 2 diabetes mellitus with diabetic polyneuropathy (CMS/HCC) Takes gabapentin OARRS reviewed Recommend freq foot checks for wounds, recommend proper fitting footwear as well as adequate diabetic control Associated Problem(s): SANTO (obstructive sleep apnea) Non compliance , has been instructed in the past on importance of need to wear PAP Not wearing risk stroke, [place], documented in this encounter [facility] 08-06-2024 Instructions Maira Rush NP - 08/06/2024 9:20 AM EST Increase the paroxetine to 30mg daily, If worsening in depression or anxiety with the medication adjustment call the office Also will send order to [facility] for mammogram I will check w cardiology about aspirin documented in this encounter [facility] 07-06-2024 Note Cardiology Clinic No te Subjective Denae Dior is a 64 y.o. year old female with paroxysmal A. Fib on Xarelto, hx of chest pain with normal stress 09/2018, dyspnea on exertion, COPD, DM type II, HTN, SANTO, and tobacco dependence seen in follow-up. Patient here for 1.5 year follow up PAF, hypertension, and hyperlipidemia. Denies palpitations, lightheadedness/syncope, and bleeding on Xarelto. No anginal chest pain. No worsening shortness of breath. Had routine labs with lipid panel on 05/25/2024. Patient Active Problem List Diagnosis Atrial fibrillation (CMS/HCC) Chest pain Chronic obstructive lung disease (CMS/HCC) Essential hypertension Headache Palpitations Sleep apnea Syncope and collapse Tobacco dependence syndrome Type 2 diabetes mellitus without complication (CMS/HCC) Coronary arteriosclerosis Dermatitis Drug-induced acute pancreatitis Dysuria Edema of extremities Encounter for screening mammogram for malignant neoplasm of breast Anxiety and depression GERD (gastroesophageal reflux disease) HLD (hyperlipidemia) Hypokalemia Medical non-compliance Morbid obesity with body mass index (BMI) of 40.0 to 49.9 ([facility]/HCC) Neuropathy, diabetic (CMS/HCC) Open wound Osteoporosis Seasonal allergies Tobacco user Urge and stress incontinence Vitamin D deficiency 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 CAP (community acquired pneumonia) COVID Dizziness and giddiness Hyperglycemia 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 classified elsewhere Injury of back of head [facility] (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 ([facility]) Lung nodule, multiple Lymphadenopathy, generalized Muscle weakness (generalized) Other abnormalities of gait and mobility Other thrombophilia Oxygen dependent Right wrist pain Stage III pressure ulcer of sacral region (CMS/HCC) Type 2 diabetes mellitus with diabetic polyneuropathy (CMS/HCC) Type 2 diabetes mellitus with hyperglycemia ([facility]) Weakness Family History Problem Relation Name Age of [...] ankle edema which is controlled with spironolactone Cardiology ROS: 10 point ROS is performed and is negative unless otherwise specified in HPI. Objective Visit Vitals BP 116/72 (BP Location: Right arm, Patient Position: Sitting) Pulse 73 Ht 1.676 m (5' 6 ) Wt 94.3 kg (208 lb) SpO2 94% BMI 33.57 kg/m??? Smoking Status Some Days BSA 2.1 m??? Physical Exam General: Awake, alert, NAD [...] Other Sulfamethoxazole-Trimethoprim Other Medications Current Outpatient Medications: Advair Diskus 500-50 mcg/dose diskus inhaler, , Disp: , Rfl: albuterol 90 mcg/actuation inhaler, Ventolin HFA 90 [...] , Rfl: furosemide (Lasix) 20 mg tablet, TAKE 1 TABLET BY MOUTH EVERY MORNING, Disp: 30 tablet, Rfl: 10 gabapentin (Neurontin) 600 mg tablet, Take by [...] BY MOUTH DAILY, Disp: , Rfl: rivaroxaban ( (more content not included)... [facility] 06-09-2024 History of Presen t illness Narrative Denae Dior is a 63 y.o. female presents with chief complaint of COPD HPI: Here for an ER fu. Was last seen in office on 05/28/24 with URI symptoms, d/t assessment and chronic conditions she was sent to [facility] ER, she was ultimately dx with COVID, as well as sent home on steroids (40mg daily for 5 days) and doxycycline for COPD exacerbation. She returned to the [facility] ER on 06/01/24 with complaints of blood sugar elevation approx 500. She presents feeling much better: minimal cough, clear to yellow, use mucinex Wears oxygen Blood sugars are back into her range of 200-250 SUBJECTIVE: MEDICATIONS: Current Outpatient Medications Medication Instructions [...] tablet, 2 times daily with meals cholecalciferol (Vitamin D-3) 50 MCG (1999 UT) tablet Daily Continuous Glucose Utility Bill Complaints Investigator (FreeStyle Julisa 2 Germfask) device 1 kit, Does not apply, Every 14 days Continuous Glucose Utility Bill Complaints Investigator (FreeStyle Julisa 2 Germfask) device USE DIRECTED Continuous Glucose Sensor (FreeStyle [...] day (morning and mid-day) Sure Comfort Pen Salix 32G X 4 MM misc 1 each, [...] necrosis or infection, unspecified Anxiety and depression ([facility]) 07/18/2023 Atrial fibrillation ([facility]) 07/18/2023 Body mass index (BMI) 40.0-44.9, adult ([facility]) COPD mixed type ([facility]) 05/23/2023 Dietary counseling and surveillance Drug-induced acute pancreatitis 07/18/2023 Edema of extremities 07/18/2023 Essential (primary) hypertension ([facility]) 12/04/2010 GERD (gastroesophageal reflux disease) 07/18/2023 HLD (hyperlipidemia) ([facility]) 07/18/2023 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 ([facility]) Medical non-compliance 07/18/2023 Morbid obesity with body mass index (BMI) of 40.0 to 49.9 ([facility]) 07/18/2023 Neuropathy, diabetic ([facility]) 07/18/2023 SANTO (obstructive sleep apnea) 07/18/2023 Osteoporosis ([facility]) 07/18/2023 Seasonal allergies 07/18/2023 Tobacco user 07/18/2023 Type 2 diabetes mellitus with complication, without long-term current use of insulin ([facility]) 07/18/2023 Urge and stress incontinence 07/18/2023 Vitamin D deficiency 07/18/2023 Past Surgical History: Procedure Laterality Date APPENDECTOMY CHOLECYSTECTOMY HYSTERECTOMY Complete not due to cancer TONSILLECTOMY family history includes Diabetes in her brother and mother; Heart disease in her mother; Hypertension in her mother; Stroke in her father. OBJECTIVE: Visit Vitals BP 118/68 (BP Location: Left arm, Patient Position: Sitting, BP Cuff Size: Adult long) Pulse 77 Temp 97.6 F (Temporal) Resp 22 Ht 5' 6 Wt 209 lb 12.8 oz Comment: steel toe boots on SpO2 94% BMI 33.86 kg/m Smoking Status Former BSA 2.11 m Physical Exam Vitals and nursing note [...] Pulmonary effort is normal. Breath sounds: Wheezing (faint exp wheeze) present. Musculoskeletal: General: Normal range of motion. Cervical [...] Judgment normal. ASSESSMENT AND PLAN: Follow up for Next scheduled follow-up. Problem List Items Addressed This Visit COPD mixed type ([facility]) Quit smoking Continue inhalers Fu with pulmonologoist Recent covid dx Primary hypertension ([facility]) Please check blood pressure daily and record DASH diet Limit caffeine Take medication as directed Contact office if chest pain, pressure, dizziness, shortness of breath, swelling legs Recommend slow position changes Current meds: b dania and arb Atrial fibrillation ([facility]) No current afib Current meds: asa, xarelto, b dania Tobacco user The patient has been advised of the risks of continued smoking: stroke, [place], all forms of cancer, lung disease, and . Options for quitting smoking include: cold turkey, hypnosis, acupuncture, nicotine replacement meds (gum, lozenges, and patches), Buproprion, and Varenicline. Is down to 3 cigs daily since she was sick Recommend for this week smoke 3 cigs daily, then next week 2 cigs daily, then week #3 1 cig daily then stop COVID - Primary Was dx 05/28/24 w KENDELL, sent home on doxy, steroids for COPD exac Returned to Er on 06/01/24 d/t elevated glucose Recommend good hand washing ted when visiting in nursing facility 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 classified elsewhere ([facility]) Type 2 diabetes mellitus with hyperglycemia ([facility]) Check blood sugars daily, notify if <70 or >200. Take medications (pills or insulin) as directed. Monitor for s/s of hypoglycemia (sweaty, dizziness, nausea, vomiting, or shakiness). Watch for increase in thirst, urination, or appetite. Inspect feet frequently monitoring for open wounds , and also recommend yearly eye exam. Continues with Endo for management Recent hospitalization to ER for elevated glucose likely related to prednisone script, back down into 200-250 range Type 2 diabetes mellitus with diabetic polyneuropathy ([facility]) Long standing DM, recommend freq foot checks for open wounds Good fitting shoes Diabetes control [facility] (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 ([facility]) Associated Problem(s): COVID Was dx 05/28/24 w COVID, sent home on doxy, steroids for COPD exac Returned to Er on 06/01/24 d/t elevated glucose Recommend good hand washing ted when visiting in nursing facility Associated Problem(s): Tobacco user The patient has been advised of the risks of continued smoking: stroke, [place], all forms of cancer, lung disease, and . Options for quitting smoking include: cold turkey, hypnosis, acupuncture, nicotine replacement meds (gum, lozenges, and patches), Buproprion, and Varenicline. Is down to 3 cigs daily since she was sick Recommend for this week smoke 3 cigs daily, then next week 2 cigs daily, then week #3 1 cig daily then stop Associated Problem(s): Type 2 diabetes mellitus with hyperglycemia ([facility]) Check blood sugars daily, notify if <70 or >200. Take medications (pills or insulin) as directed. Monitor for s/s of hypoglycemia (sweaty, dizziness, nausea, vomiting, or shakiness). Watch for increase in thirst, urination, or appetite. Inspect feet frequently monitoring for open wounds , and also recommend yearly eye exam. Continues with Endo for management Recent hospitalization to ER for elevated glucose likely related to prednisone script, back down into 200-250 range Associated Problem(s): Primary hypertension (CMS/HCC) Please check blood pressure daily and record DASH diet Limit caffeine Take medication as directed Contact office if chest pain, pressure, dizziness, shortness of breath, swelling legs Recommend slow position changes Current meds: b dania and arb Associated Problem(s): Atrial fibrillation (CMS/HCC) No current afib Current meds: asa, xarelto, b dania Associated Problem(s): COPD mixed type (CMS/HCC) Quit smoking Continue inhalers Fu with pulmonologoist Recent covid dx Associated Problem(s): Type 2 diabetes mellitus with diabetic polyneuropathy (CMS/HCC) Long standing DM, recommend freq foot checks for open wounds Good fitting shoes Diabetes control documented in this encounter [facility] 06-09-2024 Instructions Maira Rush NP - 06/09/2024 11:00 AM EST Diabetes: please call and schedule a diabetic eye exam Smokin cigs daily for this week, then next week 2 cigs daily, then week #3: 1 cig daily, then week #4: stop: You can do this, do it for your overall health and health of your lungs documented in this encounter [facility] 05-28-2024 History of Presen t illness Narrative Associated Problem(s): COPD with acute exacerbation (CMS/HCC) Recent hospitalization with pneumonia in the last few months Is on home O2, also with nebs at home, states no difference in her wheezing with or without the neb UTD on flu shot, not on COVID Had CT chest on 05/25/24 but did not have sxs at that time Her is in a assisted, possible exposure to something there Differentials: atypical [...] 2 times daily with meals Continuous Glucose Utility Bill Complaints Investigator (FreeStyle Julisa 2 Germfask) device 1 kit, Does not apply, Every 14 days Continuous Glucose Utility Bill Complaints Investigator (FreeStyle Julisa 2 Germfask) device USE DIRECTED Continuous Glucose Sensor (FreeStyle [...] day (morning and mid-day) Sure Comfort Pen Salix 32G X 4 MM misc 1 each, [...] necrosis or infection, unspecified Anxiety and depression ([facility]) 07/18/2023 Atrial fibrillation ([facility]) 07/18/2023 Body mass index (BMI) 40.0-44.9, adult ([facility]) COPD mixed type ([facility]) 05/23/2023 Dietary counseling and surveillance Drug-induced acute pancreatitis 07/18/2023 Edema of extremities 07/18/2023 Essential (primary) hypertension ([facility]) 12/04/2010 GERD (gastroesophageal reflux disease) 07/18/2023 HLD (hyperlipidemia) ([facility]) 07/18/2023 Hx of being hospitalized PNEUMONIA [facility] (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 ([facility]) Medical non-compliance 07/18/2023 Morbid obesity with body mass index (BMI) of 40.0 to 49.9 ([facility]) 07/18/2023 Neuropathy, diabetic ([facility]) 07/18/2023 SANTO (obstructive sleep apnea) 07/18/2023 Osteoporosis ([facility]) 07/18/2023 Seasonal allergies 07/18/2023 Tobacco user 07/18/2023 Type 2 diabetes mellitus with complication, without long-term current use of insulin ([facility]) 07/18/2023 Urge and stress incontinence 07/18/2023 Vitamin [...] ASSESSMENT AND PLAN: documented in this encounter [facility] 05-28-2024 History of Presen t illness Narrative Associated Problem(s): 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 (CMS/HCC) Noted on past CT scans, felt to be adenoma, however is getting larger in size Will order CT scan adrenal gland protocol documented in this encounter [facility] 05-19-2024 History of Presen t illness Narrative [...] D-3) 50 mcg, Oral, Daily Continuous Glucose Utility Bill Complaints Investigator (FreeStyle Julisa 2 Germfask) device 1 kit, Does not apply, Every 14 days Continuous Glucose Utility Bill Complaints Investigator (FreeStyle Julisa 2 Germfask) device USE DIRECTED Continuous Glucose Sensor (FreeStyle [...] day (morning and mid-day) Sure Comfort Pen Salix 32G X 4 MM misc 1 each, [...] necrosis or infection, unspecified Anxiety and depression ([facility]) 07/18/2023 Atrial fibrillation ([facility]) 07/18/2023 Body mass index (BMI) 40.0-44.9, adult ([facility]) COPD mixed type ([facility]) 05/23/2023 Dietary counseling and surveillance Drug-induced acute pancreatitis 07/18/2023 Edema of extremities 07/18/2023 Essential (primary) hypertension ([facility]) 12/04/2010 GERD (gastroesophageal reflux disease) 07/18/2023 HLD (hyperlipidemia) ([facility]) 07/18/2023 Hx of being hospitalized PNEUMONIA [facility] (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 ([facility]) Medical non-compliance 07/18/2023 Morbid obesity with body mass index (BMI) of 40.0 to 49.9 ([facility]) 07/18/2023 Neuropathy, diabetic ([facility]) 07/18/2023 SANTO (obstructive sleep apnea) 07/18/2023 Osteoporosis ([facility]) 07/18/2023 Seasonal allergies 07/18/2023 Tobacco user 07/18/2023 Type 2 diabetes mellitus with complication, without long-term current use of insulin ([facility]) 07/18/2023 Urge and stress incontinence 07/18/2023 Vitamin [...] as well as stress from S.O. in assisted Right wrist pain - Primary No hx [...] as well as stress from S.O. in assisted documented in this encounter [facility] 05-19-2024 Instructions Maira Rush NP - 05/19/2024 2:00 PM EST Cosmo wrap to right wrist for [address] ice to affected area 3-4 times daily for 20 minutes each Follow up if not better documented in this encounter [facility] 05-06-2024 History of Presen t illness Narrative [...] D-3) 50 mcg, Oral, Daily Continuous Glucose Utility Bill Complaints Investigator (FreeStyle Julisa 2 Germfask) device 1 kit, Does not apply, Every 14 days Continuous Glucose Utility Bill Complaints Investigator (FreeStyle Julisa 2 Germfask) device USE DIRECTED Continuous Glucose Sensor (FreeStyle [...] day (morning and mid-day) Sure Comfort Pen Salix 32G X 4 MM misc 1 each, [...] necrosis or infection, unspecified Anxiety and depression ([facility]) 07/18/2023 Atrial fibrillation ([facility]) 07/18/2023 Body mass index (BMI) 40.0-44.9, adult ([facility]) COPD mixed type ([facility]) 05/23/2023 Dietary counseling and surveillance Drug-induced acute pancreatitis 07/18/2023 Edema of extremities 07/18/2023 Essential (primary) hypertension ([facility]) 12/04/2010 GERD (gastroesophageal reflux disease) 07/18/2023 HLD (hyperlipidemia) ([facility]) 07/18/2023 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 ([facility]) Medical non-compliance 07/18/2023 Morbid obesity with body mass index (BMI) of 40.0 to 49.9 ([facility]) 07/18/2023 Neuropathy, diabetic ([facility]) 07/18/2023 SANTO (obstructive sleep apnea) 07/18/2023 Osteoporosis ([facility]) 07/18/2023 Seasonal allergies 07/18/2023 Tobacco user 07/18/2023 Type 2 diabetes mellitus with complication, without long-term current use of insulin ([facility]) 07/18/2023 Urge and stress incontinence 07/18/2023 Vitamin [...] to wear PAP Not wearing risk stroke, [place], Atrial fibrillation ([facility]) Cont current meds and anticoagulation Tobacco user The patient has been advised of the risks of continued smoking: stroke, [place], all forms of cancer, lung disease, and [...] complication, with long-term current use of insulin ([facility]) Check blood sugars daily, notify if <70 [...] Needs fu CT due now, order to [facility] (community acquired pneumonia) Finished atb Breathing: improved Fever:none No productive cough Other Visit Diagnoses Needs flu shot Relevant Orders Flu vaccine, high dose seasonal, PF (NRT711) (Fluzone High Dose) (Completed) Associated Problem(s): Tobacco user The patient has been advised of the risks of continued smoking: stroke, [place], all forms of cancer, lung disease, and [...] complication, with long-term current use of insulin ([facility]) Check blood sugars daily, notify if <70 [...] to wear PAP Not wearing risk stroke, [place], documented in this encounter [facility] 05-06-2024 Instructions Maira Rush NP - 05/06/2024 1:20 PM EST Diabetes: continue with dr allison, please call and schedule a diabetic eye exam Division Director: please call to schedule an appointment Mammogram: I will fax order to [facility] documented in this encounter [facility] 04-22-2024 History of Presen t illness Narrative [...] Hospitalizations in the last year: yes Specialist: Maintenance Services Dispatcher [facility] Kalina Torres for Endo/DM, Division Director: Janet-has not seen in a while Recent [...] being taken. She does not see a manufacturing laborer.Eye exam is not current. SUBJECTIVE: MEDICATIONS: Current [...] D-3) 50 mcg, Oral, Daily Continuous Glucose Utility Bill Complaints Investigator (FreeStyle Julisa 2 Germfask) device Continuous Glucose Utility Bill Complaints Investigator (FreeStyle Julisa 2 Germfask) device 1 kit, Does not apply, Every [...] day (morning and mid-day) Sure Comfort Pen Salix 32G X 4 MM misc 1 each, [...] necrosis or infection, unspecified Anxiety and depression ([facility]) 07/18/2023 Atrial fibrillation ([facility]) 07/18/2023 Body mass index (BMI) 40.0-44.9, adult ([facility]) COPD mixed type ([facility]) 05/23/2023 Dietary counseling and surveillance Drug-induced acute pancreatitis 07/18/2023 Edema of extremities 07/18/2023 Essential (primary) hypertension ([facility] 12/04/2010 GERD (gastroesophageal reflux disease) 07/18/2023 HLD (hyperlipidemia) ([facility]) 07/18/2023 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 ([facility]) Medical non-compliance 07/18/2023 Morbid obesity with body mass index (BMI) of 40.0 to 49.9 ([facility]) 07/18/2023 Neuropathy, diabetic ([facility]) 07/18/2023 SANTO (obstructive sleep apnea) 07/18/2023 Osteoporosis ([facility]) 07/18/2023 Seasonal allergies 07/18/2023 Tobacco user 07/18/2023 Type 2 diabetes mellitus with complication, without long-term current use of insulin ([facility]) 07/18/2023 Urge and stress incontinence 07/18/2023 Vitamin [...] Items Addressed This Visit COPD mixed type ([facility]) Quit smoking Continue inhalers Fu with pulmonologoist Relevant Medications albuterol (2.5 MG/3ML) 0.083% nebulizer solution tiotropium (Spiriva Respimat) 2.5 MCG/ACT inhaler Other Relevant Orders CT chest w IV contrast Primary hypertension ([facility]) Please check blood pressure daily and record DASH diet Limit caffeine Take medication as directed Contact office if chest pain, pressure, dizziness, shortness of breath, swelling legs Recommend slow position changes Relevant Medications spironolactone (Aldactone) 25 MG tablet losartan (Cozaar) 100 MG tablet Type 2 diabetes mellitus with diabetic neuropathy, with long-term current use of insulin ([facility]) Recommend tight blood sugar control Relevant Medications [...] pantoprazole (ProtoNix) 40 MG EC tablet Osteoporosis ([facility]) UTD on DEXA Recommend exercise as chronic conditions allow Edema of extremities Relevant Medications spironolactone (Aldactone) 25 MG tablet Vitamin D deficiency Continue meds Relevant Medications cholecalciferol (Vitamin D-3) 50 MCG (1999 [place]) tablet Tobacco user The patient has been advised of the risks of continued smoking: stroke, [place], all forms of cancer, lung disease, and [...] of the risks of continued smoking: stroke, [place], all forms of cancer, lung disease, and [...] complication, with long-term current use of insulin ([facility]) Continue with dr allison for management of this Recommend freq foot checks, as well as yearly eye exams Take medications as directed, and diet low in sugar Associated Problem(s): Osteoporosis ([facility]) UTD on DEXA Recommend exercise as chronic conditions allow Associated Problem(s): Encounter for wellness examination Reviewed Ht/Wt/BMI Recommend eye exam yearly Recommend dental exams twice a year Balance work/leisure activities Exercises is recommended most days of the week (appropriate as chronic conditions allow) Follow up yearly and prn documented in this encounter [facility] 04-22-2024 Instructions Maira Rush NP - 04/22/2024 9:20 AM EST New atb for pneumonia Need to schedule with pulmonology and eye doctor Eye doctor is : [phone] [facility] Lung doctor: janet office [phone] documented in this encounter [facility] 04-21-2024 History of Presen t illness Narrative [...] (VITAMIN D-3) 2,000 Units, Daily Continuous Glucose Utility Bill Complaints Investigator (FreeStyle Julisa 2 Germfask) device Continuous Glucose Sensor (FreeStyle Julisa 2 [...] day (morning and mid-day) Sure Comfort Pen Salix 32G X 4 MM misc 1 each, [...] necrosis or infection, unspecified Anxiety and depression ([facility]) 07/18/2023 Atrial fibrillation ([facility]) 07/18/2023 Body mass index (BMI) 40.0-44.9, adult ([facility]) COPD mixed type ([facility]) 05/23/2023 Dietary counseling and surveillance Drug-induced acute pancreatitis 07/18/2023 Edema of extremities 07/18/2023 Essential (primary) hypertension ([facility]) 12/04/2010 GERD (gastroesophageal reflux disease) 07/18/2023 HLD (hyperlipidemia) ([facility]) 07/18/2023 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 ([facility]) Medical non-compliance 07/18/2023 Morbid obesity with body mass index (BMI) of 40.0 to 49.9 ([facility]) 07/18/2023 Neuropathy, diabetic ([facility]) 07/18/2023 SANTO (obstructive sleep apnea) 07/18/2023 Osteoporosis ([facility]) 07/18/2023 Seasonal allergies 07/18/2023 Tobacco user 07/18/2023 Type 2 diabetes mellitus with complication, without long-term current use of insulin ([facility]) 07/18/2023 Urge and stress incontinence 07/18/2023 Vitamin [...] hyperglycemia, with long-term current use of insulin ([facility]) - POCT glucose manually resulted - POCT [...] day, we will start her on a [employer] Julisa at 2 we will do PA if needed. Encounter for dietary consultation Diet and exercise reviewed with the patient Vitamin D deficiency Primary hypertension ([facility]) To follow with her PCP Hyperlipemia, mixed ([facility]) Continue with statin Crestor 5 mg once a day Insulin long-term use ([facility]) Class 1 obesity due to excess calories without serious comorbidity with body mass index (BMI) of 33.0 to 33.9 in adult Follow up in about 3 months (around 07/22/2024). documented in this encounter [facility] 04-09-2024 Telephone encounter Note I would like Denae Dior to be enrolled in Chronic Care Mgmt if her insurance allows She is now living on her own, [place] She has not been to see Dr Allison for some time, he is the one to manage her DM, recent A1c is 10.4% [place] [facility] 04-09-2024 Miscellaneous Notes I would like Denae Dior to be enrolled in Chronic Care Mgmt if her insurance allows She is now living on her own, is [place]. She has not been to see Dr Allison for some time, he is the one to manage her DM, recent A1c is 10.4% [place] documented in this encounter [facility] 03-18-2024 Telephone encounter Note Contact provider this morning, she is now starting to cough up yellow mucus and worsening in symtpoms, no fever, no NVD Will send in atb Also needs humidification for her oxygen She is instructed if atb does not help will need fu apppt [place] [facility] 03-18-2024 Miscellaneous Notes Contact provider this morning, she is now starting to cough up yellow mucus and worsening in symtpoms, no fever, no NVD Will send in atb Also needs humidification for her oxygen She is instructed if atb does not help will need fu apppt [place] documented in this encounter [facility] 03-11-2024 History of Presen t illness Narrative Associated Problem(s): Type 2 diabetes mellitus without complication, with long-term current use of insulin ([facility]) Phone number given for pt to contact [...] D-3) 2,000 Units, Oral, Daily Continuous Glucose Utility Bill Complaints Investigator (FreeStyle Julisa 2 Germfask) device Continuous Glucose Sensor (FreeStyle Julisa 2 [...] day (morning and mid-day) Sure Comfort Pen Salix 32G X 4 MM misc 1 each, [...] Medical History: Diagnosis Date Anxiety and depression ([facility]) 07/18/2023 Atrial fibrillation ([facility]) 07/18/2023 COPD mixed type ([facility]) 05/23/2023 Drug-induced acute pancreatitis 07/18/2023 Edema of extremities 07/18/2023 GERD (gastroesophageal reflux disease) 07/18/2023 HLD (hyperlipidemia) ([facility]) 07/18/2023 Medical non-compliance 07/18/2023 Morbid obesity with body mass index (BMI) of 40.0 to 49.9 ([facility]) 07/18/2023 Neuropathy, diabetic ([facility]) 07/18/2023 SANTO (obstructive sleep apnea) 07/18/2023 Osteoporosis ([facility]) 07/18/2023 Seasonal allergies 07/18/2023 Tobacco user 07/18/2023 Type 2 diabetes mellitus with complication, without long-term current use of insulin ([facility]) 07/18/2023 Urge and stress incontinence 07/18/2023 Vitamin [...] complication, with long-term current use of insulin ([facility]) Phone number given for pt to contact Dr Allison office Relevant Orders Ambulatory referral to [facility] Viral upper respiratory tract infection - Primary Do not see any s/s bacterial infection, lungs clear Did in office Flu A/B/Covid: negative Fluids, rest, monitor for s/s worsening if so call office documented in this encounter [facility] 02-25-2024 History of Presen t illness Narrative [...] 25mg BID Her new med supply from [facility] is 25mg BID This may be related to her dizziness Will obtain notes from [facility], I did call medical records and left voice mail to send all ER notes for recent visit Associated Problem(s): Type 2 diabetes mellitus without complication, with long-term current use of insulin ([facility]) Continue current dosing of insulin at BID [...] fu appt with them Was in the [facility] er yesterday for dizziness: room spinning, no [...] D-3) 2,000 Units, Oral, Daily Continuous Glucose Utility Bill Complaints Investigator ([employer]Style Julisa 2 Germfask) device Continuous Glucose Sensor (FreeStyle Julisa 2 [...] day (morning and mid-day) Sure Comfort Pen Salix 32G X 4 MM misc 1 each, [...] Medical History: Diagnosis Date Anxiety and depression ([facility]) 07/18/2023 Atrial fibrillation ([facility]) 07/18/2023 COPD mixed type ([facility]) 05/23/2023 Drug-induced acute pancreatitis 07/18/2023 Edema of extremities 07/18/2023 GERD (gastroesophageal reflux disease) 07/18/2023 HLD (hyperlipidemia) ([facility]) 07/18/2023 Medical non-compliance 07/18/2023 Morbid obesity with body mass index (BMI) of 40.0 to 49.9 ([facility]) 07/18/2023 Neuropathy, diabetic ([facility]) 07/18/2023 SANTO (obstructive sleep apnea) 07/18/2023 Osteoporosis ([facility]) 07/18/2023 Seasonal allergies 07/18/2023 Tobacco user 07/18/2023 Type 2 diabetes mellitus with complication, without long-term current use of insulin ([facility]) 07/18/2023 Urge and stress incontinence 07/18/2023 Vitamin [...] complication, with long-term current use of insulin ([facility]) Continue current dosing of insulin at BID [...] 25mg BID Her new med supply from [facility] is 25mg BID This may be related to her dizziness Will obtain notes from [facility], I did call medical records and left voice mail to send all ER notes for recent visit Open wound of buttock - Primary Recommend cleansing area with soap and water 3-4 times daily and apply zinc oxide cream Increase protein intake Fu in 2 weeks for recheck No atb needed at this time documented in this encounter [facility] 02-17-2024 History of Presen t illness Narrative [...] file. HPI: Recent discharge from hospital and assisted for weakness and inability to care for [...] no compliance problems. Hypertensive end-organ damage includes CAD/[place] and heart failure. Diabetes She presents for [...] D-3) 2,000 Units, Oral, Daily Continuous Glucose Utility Bill Complaints Investigator ([employer] Julisa 2 Germfask) device Continuous Glucose Sensor (FreeStyle Julisa 2 [...] Oral, 2 times daily Sure Comfort Pen Salix 32G X 4 MM misc 1 each, [...] Medical History: Diagnosis Date Anxiety and depression ([facility]) 07/18/2023 Atrial fibrillation ([facility]) 07/18/2023 COPD mixed type ([facility]) 05/23/2023 Drug-induced acute pancreatitis 07/18/2023 Edema of extremities 07/18/2023 GERD (gastroesophageal reflux disease) 07/18/2023 HLD (hyperlipidemia) ([facility]) 07/18/2023 Medical non-compliance 07/18/2023 Morbid obesity with body mass index (BMI) of 40.0 to 49.9 ([facility]) 07/18/2023 Neuropathy, diabetic ([facility]) 07/18/2023 SANTO (obstructive sleep apnea) 07/18/2023 Osteoporosis ([facility]) 07/18/2023 Seasonal allergies 07/18/2023 Tobacco user 07/18/2023 Type 2 diabetes mellitus with complication, without long-term current use of insulin ([facility]) 07/18/2023 Urge and stress incontinence 07/18/2023 Vitamin [...] panel Type 2 diabetes mellitus with hyperglycemia ([facility]) - Primary Relevant Orders Comprehensive metabolic panel Hemoglobin A1c Urinalysis with reflex microscopic (clean catch) Dizziness and giddiness Could be still with getting stronger, also will check labs to r/o anemia or elyte abnormals Fu in 3 weeks Continue with home OT/PT Relevant Orders Magnesium Comprehensive metabolic panel CBC and differential Urinalysis with reflex microscopic (clean catch) documented in this encounter [facility] 01-16-2024 Note XR CHEST 1 VW Procedure: Chest x-ray performed Number of views:1 History:Cough Comparison:07/13/2022 Impression: 1. There is patchy airspace disease and effusion in the left lung base. The right lung is clear. There is no pneumothorax. The mediastinal structures are unremarkable. Finalized by Chalo Lang MD on 01/16/2024 8:28 PM [facility] 07-18-2023 History of Presen t illness [...] to wear PAP Not wearing risk stroke, [place], Associated Problem(s): Type 2 diabetes mellitus with diabetic neuropathy, with long-term current use of insulin ([facility]) Non compliant with follow up with Endo Explained to her her persistent non compliance will lead to increase risk stroke, [place], blindness, amputation, as well as CKD Instructed [...] 2 puffs, Inhalation, Daily Sure Comfort Pen Salix 32G X 4 MM misc 1 each, [...] Medical History: Diagnosis Date Anxiety and depression ([facility]) 07/18/2023 Atrial fibrillation ([facility]) 07/18/2023 COPD mixed type ([facility]) 05/23/2023 Drug-induced acute pancreatitis 07/18/2023 Edema of extremities 07/18/2023 GERD (gastroesophageal reflux disease) 07/18/2023 HLD (hyperlipidemia) ([facility]) 07/18/2023 Medical non-compliance 07/18/2023 Morbid obesity with body mass index (BMI) of 40.0 to 49.9 ([facility]) 07/18/2023 Neuropathy, diabetic ([facility]) 07/18/2023 SANTO (obstructive sleep apnea) 07/18/2023 Osteoporosis ([facility]) 07/18/2023 Seasonal allergies 07/18/2023 Tobacco user 07/18/2023 Type 2 diabetes mellitus with complication, without long-term current use of insulin ([facility]) 07/18/2023 Urge and stress incontinence 07/18/2023 Vitamin [...] current meds at this time Primary hypertension (CMS/HCC) stable Relevant Orders Comprehensive metabolic panel Type 2 diabetes mellitus with diabetic neuropathy, with long-term current use of insulin (CMS/HCC) - Primary Non compliant with follow up with Endo Explained to her her persistent non compliance will lead to increase risk stroke, [place], blindness, amputation, as well as CKD Instructed [...] to wear PAP Not wearing risk stroke, [place], GERD (gastroesophageal reflux disease) Relevant Orders CBC [...] ointment on this documented in this encounter [facility] 06-07-2022 Note PROCEDURE: XR FOOT L [...] Date: 2022-06-07 08:43 [facility] Evaluation note Diagnosis Primary hypertension [...] mass index (BMI) of 40.0 to 49.9 ([facility]) documented in this encounter [facility] HealthcareEvaluation note* Diagnosis Viral upper respiratory tract infection- Primary Acute upper respiratory infections of unspecified site Tobacco user Tobacco use disorder Open wound Open wound(s) (multiple) of unspecified site(s), without mention of complication Obesity (BMI 30-39.9) Type 2 diabetes mellitus without complication, with long-term current use of insulin ([facility]) documented in this encounter [facility] HealthcareEvaluation note* Diagnosis Primary hypertension ([facility])- Primary Unspecified essential hypertension Type 2 diabetes mellitus with diabetic neuropathy, with long-term current use of insulin ([facility]) Gastroesophageal reflux disease, unspecified whether esophagitis present Vitamin D deficiency Type 2 diabetes mellitus with complication, without long-term current use of insulin ([facility]) Mixed hyperlipidemia ([facility]) Mixed hyperlipidemia Encounter for screening mammogram for malignant neoplasm of breast SANTO (obstructive sleep apnea) Obstructive sleep apnea (adult) (pediatric) COPD mixed type ([facility]) Anxiety and depression ([facility]) COVID Open wound Open wound(s) (multiple) of unspecified site(s), without mention of complication Morbid obesity with body mass index (BMI) of 40.0 to 49.9 ([facility]) COPD mixed type ([facility])- Primary Dysuria Atrial fibrillation, unspecified type ([facility]) Gastroesophageal reflux disease, unspecified whether esophagitis present Type 2 diabetes mellitus with complication, without long-term current use of insulin ([facility]) Obesity (BMI 30-39.9) Tobacco user Tobacco use disorder Anxiety and depression ([facility]) Dermatitis Contact dermatitis and other eczema, due to unspecified cause Anxiety and depression ([facility])- Primary Obesity (BMI 30-39.9) Type 2 diabetes mellitus with complication, without long-term current use of insulin ([facility]) Medical non-compliance Tobacco user Tobacco use disorder Type 2 diabetes mellitus with hyperglycemia ([facility])- Primary Primary hypertension ([facility]) Unspecified essential hypertension Edema of extremities Edema Type 2 diabetes mellitus without complication, with long-term current use of insulin ([facility]) Vitamin D deficiency Tobacco user Tobacco use disorder Dizziness and giddiness Atrial fibrillation, unspecified type ([facility]) COPD mixed type ([facility]) Open wound of buttock, unspecified laterality, initial encounter- Primary Type 2 diabetes mellitus without complication, with long-term current use of insulin ([facility]) Obesity (BMI 30-39.9) Dizziness and giddiness Viral upper respiratory tract infection- Primary Acute upper respiratory infections of unspecified site Tobacco user Tobacco use disorder Open wound Open wound(s) (multiple) of unspecified site(s), without mention of complication Obesity (BMI 30-39.9) Type 2 diabetes mellitus without complication, with long-term current use of insulin ([facility]) Primary hypertension ([facility])- Primary Unspecified essential hypertension Edema of extremities Edema documented in this encounter [facility] HealthcareEvaluation note* Diagnosis Primary hypertension ([facility])- Primary Unspecified essential hypertension Type 2 diabetes mellitus with diabetic neuropathy, with long-term current use of insulin ([facility]) Gastroesophageal reflux disease, unspecified whether esophagitis present Vitamin D deficiency Type 2 diabetes mellitus with complication, without long-term current use of insulin ([facility]) Mixed hyperlipidemia ([facility]) Mixed hyperlipidemia Encounter for screening mammogram for malignant neoplasm of breast SANTO (obstructive sleep apnea) Obstructive sleep apnea (adult) (pediatric) COPD mixed type ([facility]) Anxiety and depression ([facility]) COVID Open wound Open wound(s) (multiple) of unspecified site(s), without mention of complication Morbid obesity with body mass index (BMI) of 40.0 to 49.9 ([facility]) COPD mixed type ([facility])- Primary Dysuria Atrial fibrillation, unspecified type ([facility]) Gastroesophageal reflux disease, unspecified whether esophagitis present Type 2 diabetes mellitus with complication, without long-term current use of insulin ([facility]) Obesity (BMI 30-39.9) Tobacco user Tobacco use disorder Anxiety and depression ([facility]) Dermatitis Contact dermatitis and other eczema, due to unspecified cause Anxiety and depression ([facility])- Primary Obesity (BMI 30-39.9) Type 2 diabetes mellitus with complication, without long-term current use of insulin ([facility]) Medical non-compliance Tobacco user Tobacco use disorder Type 2 diabetes mellitus with hyperglycemia ([facility])- Primary Primary hypertension ([facility]) Unspecified essential hypertension Edema of extremities Edema Type 2 diabetes mellitus without complication, with long-term current use of insulin ([facility]) Vitamin D deficiency Tobacco user Tobacco use disorder Dizziness and giddiness Atrial fibrillation, unspecified type ([facility]) COPD mixed type ([facility]) Open wound of buttock, unspecified laterality, initial encounter- Primary Type 2 diabetes mellitus without complication, with long-term current use of insulin ([facility]) Obesity (BMI 30-39.9) Dizziness and giddiness Viral upper respiratory tract infection- Primary Acute upper respiratory infections of unspecified site Tobacco user Tobacco use disorder Open wound Open wound(s) (multiple) of unspecified site(s), without mention of complication Obesity (BMI 30-39.9) Type 2 diabetes mellitus without complication, with long-term current use of insulin ([facility]) COPD mixed type ([facility])- Primary URI, acute Acute upper respiratory infections of unspecified site documented in this encounter [facility]Evaluation note* Diagnosis Primary hypertension ([facility])- Primary Unspecified essential hypertension Type 2 diabetes mellitus with diabetic neuropathy, with long-term current use of insulin ([facility]) Gastroesophageal reflux disease, unspecified whether esophagitis present Vitamin D deficiency Type 2 diabetes mellitus with complication, without long-term current use of insulin ([facility]) Mixed hyperlipidemia ([facility]) Mixed hyperlipidemia Encounter for screening mammogram for malignant neoplasm of breast SANTO (obstructive sleep apnea) Obstructive sleep apnea (adult) (pediatric) COPD mixed type ([facility]) Anxiety and depression ([facility]) COVID Open wound Open wound(s) (multiple) of unspecified site(s), without mention of complication Morbid obesity with body mass index (BMI) of 40.0 to 49.9 ([facility]) COPD mixed type ([facility])- Primary Dysuria Atrial fibrillation, unspecified type ([facility]) Gastroesophageal reflux disease, unspecified whether esophagitis present Type 2 diabetes mellitus with complication, without long-term current use of insulin ([facility]) Obesity (BMI 30-39.9) Tobacco user Tobacco use disorder Anxiety and depression ([facility]) Dermatitis Contact dermatitis and other eczema, due to unspecified cause Anxiety and depression ([facility])- Primary Obesity (BMI 30-39.9) Type 2 diabetes mellitus with complication, without long-term current use of insulin ([facility]) Medical non-compliance Tobacco user Tobacco use disorder Type 2 diabetes mellitus with hyperglycemia ([facility])- Primary Primary hypertension ([facility]) Unspecified essential hypertension Edema of extremities Edema Type 2 diabetes mellitus without complication, with long-term current use of insulin ([facility]) Vitamin D deficiency Tobacco user Tobacco use disorder Dizziness and giddiness Atrial fibrillation, unspecified type ([facility]) COPD mixed type ([facility]) Open wound of buttock, unspecified laterality, initial encounter- Primary Type 2 diabetes mellitus without complication, with long-term current use of insulin ([facility]) Obesity (BMI 30-39.9) Dizziness and giddiness Viral upper respiratory tract infection- Primary Acute upper respiratory infections of unspecified site Tobacco user Tobacco use disorder Open wound Open wound(s) (multiple) of unspecified site(s), without mention of complication Obesity (BMI 30-39.9) Type 2 diabetes mellitus without complication, with long-term current use of insulin ([facility]) COPD mixed type ([facility]) URI, acute Acute upper respiratory infections of unspecified site documented in this encounter [facility] HealthcareEvaluation note* Diagnosis Primary hypertension ([facility])- Primary Unspecified essential hypertension Type 2 diabetes mellitus with diabetic neuropathy, with long-term current use of insulin ([facility]) Gastroesophageal reflux disease, unspecified whether esophagitis present Vitamin D deficiency Type 2 diabetes mellitus with complication, without long-term current use of insulin ([facility]) Mixed hyperlipidemia ([facility]) Mixed hyperlipidemia Encounter for screening mammogram for malignant neoplasm of breast SANTO (obstructive sleep apnea) Obstructive sleep apnea (adult) (pediatric) COPD mixed type ([facility]) Anxiety and depression ([facility]) COVID Open wound Open wound(s) (multiple) of unspecified site(s), without mention of complication Morbid obesity with body mass index (BMI) of 40.0 to 49.9 ([facility]) COPD mixed type ([facility])- Primary Dysuria Atrial fibrillation, unspecified type ([facility]) Gastroesophageal reflux disease, unspecified whether esophagitis present Type 2 diabetes mellitus with complication, without long-term current use of insulin ([facility]) Obesity (BMI 30-39.9) Tobacco user Tobacco use disorder Anxiety and depression ([facility]) Dermatitis Contact dermatitis and other eczema, due to unspecified cause Anxiety and depression ([facility])- Primary Obesity (BMI 30-39.9) Type 2 diabetes mellitus with complication, without long-term current use of insulin ([facility]) Medical non-compliance Tobacco user Tobacco use disorder Type 2 diabetes mellitus with hyperglycemia ([facility])- Primary Primary hypertension ([facility]) Unspecified essential hypertension Edema of extremities Edema Type 2 diabetes mellitus without complication, with long-term current use of insulin ([facility]) Vitamin D deficiency Tobacco user Tobacco use disorder Dizziness and giddiness Atrial fibrillation, unspecified type ([facility]) COPD mixed type ([facility]) Open wound of buttock, unspecified laterality, initial encounter- Primary Type 2 diabetes mellitus without complication, with long-term current use of insulin ([facility]) Obesity (BMI 30-39.9) Dizziness and giddiness Viral upper respiratory tract infection- Primary Acute upper respiratory infections of unspecified site Tobacco user Tobacco use disorder Open wound Open wound(s) (multiple) of unspecified site(s), without mention of complication Obesity (BMI 30-39.9) Type 2 diabetes mellitus without complication, with long-term current use of insulin ([facility]) Encounter for wellness examination- Primary Osteoporosis, unspecified osteoporosis type, unspecified pathological fracture presence ([facility]) Open wound of buttock, unspecified laterality, initial encounter Type 2 diabetes mellitus without complication, with long-term current use of insulin ([facility]) Obesity (BMI 30-39.9) Tobacco user Tobacco use disorder Anxiety and depression ([facility]) Type 2 diabetes mellitus with diabetic neuropathy, with long-term current use of insulin ([facility]) COPD mixed type ([facility]) Diabetic polyneuropathy associated with type 2 diabetes mellitus ([facility]) Gastroesophageal reflux disease, unspecified whether esophagitis present Mixed hyperlipidemia ([facility]) Mixed hyperlipidemia Primary hypertension ([facility]) Unspecified essential hypertension Edema of extremities Edema Lung nodule, multiple Lymphadenopathy, generalized Vitamin D deficiency Oxygen dependent Dependence on supplemental oxygen Community acquired pneumonia, unspecified laterality documented in this encounter [facility] HealthcareEvaluation note* Diagnosis Primary hypertension ([facility])- Primary Unspecified essential hypertension Type 2 diabetes mellitus with diabetic neuropathy, with long-term current use of insulin ([facility]) Gastroesophageal reflux disease, unspecified whether esophagitis present Vitamin D deficiency Type 2 diabetes mellitus with complication, without long-term current use of insulin ([facility]) Mixed hyperlipidemia ([facility]) Mixed hyperlipidemia Encounter for screening mammogram for malignant neoplasm of breast SANTO (obstructive sleep apnea) Obstructive sleep apnea (adult) (pediatric) COPD mixed type ([facility]) Anxiety and depression ([facility]) COVID Open wound Open wound(s) (multiple) of unspecified site(s), without mention of complication Morbid obesity with body mass index (BMI) of 40.0 to 49.9 ([facility]) COPD mixed type ([facility])- Primary Dysuria Atrial fibrillation, unspecified type ([facility]) Gastroesophageal reflux disease, unspecified whether esophagitis present Type 2 diabetes mellitus with complication, without long-term current use of insulin ([facility]) Obesity (BMI 30-39.9) Tobacco user Tobacco use disorder Anxiety and depression ([facility]) Dermatitis Contact dermatitis and other eczema, due to unspecified cause Anxiety and depression ([facility])- Primary Obesity (BMI 30-39.9) Type 2 diabetes mellitus with complication, without long-term current use of insulin ([facility]) Medical non-compliance Tobacco user Tobacco use disorder Type 2 diabetes mellitus with hyperglycemia ([facility])- Primary Primary hypertension ([facility]) Unspecified essential hypertension Edema of extremities Edema Type 2 diabetes mellitus without complication, with long-term current use of insulin ([facility]) Vitamin D deficiency Tobacco user Tobacco use disorder Dizziness and giddiness Atrial fibrillation, unspecified type ([facility]) COPD mixed type ([facility]) Open wound of buttock, unspecified laterality, initial encounter- Primary Type 2 diabetes mellitus without complication, with long-term current use of insulin ([facility] [place]) Obesity (BMI 30-39.9) Dizziness and giddiness Viral upper respiratory tract infection- Primary Acute upper respiratory infections of unspecified site Tobacco user Tobacco use disorder Open wound Open wound(s) (multiple) of unspecified site(s), without mention of complication Obesity (BMI 30-39.9) Type 2 diabetes mellitus without complication, with long-term current use of insulin ([facility]) Encounter for wellness examination- Primary Osteoporosis, unspecified osteoporosis type, unspecified pathological fracture presence ([facility] [place]) Open wound of buttock, unspecified laterality, initial encounter Type 2 diabetes mellitus without complication, with long-term current use of insulin ([facility]) Obesity (BMI 30-39.9) Tobacco user Tobacco use disorder Anxiety and depression ([facility]) Type 2 diabetes mellitus with diabetic neuropathy, with long-term current use of insulin ([facility] [place]) COPD mixed type ([facility] [place]) Diabetic polyneuropathy associated with type 2 diabetes mellitus ([facility]) Gastroesophageal reflux disease, unspecified whether esophagitis present Mixed hyperlipidemia ([facility]) Mixed hyperlipidemia Primary hypertension ([facility]) Unspecified essential hypertension Edema of extremities Edema Lung nodule, multiple Lymphadenopathy, generalized Vitamin D deficiency Oxygen dependent Dependence on supplemental oxygen Community acquired pneumonia, unspecified laterality COPD mixed type ([facility])- Primary SANTO (obstructive sleep apnea) Obstructive sleep apnea (adult) (pediatric) Lung nodule, multiple Community acquired pneumonia, unspecified laterality Primary hypertension ([facility]) Unspecified essential hypertension Atrial fibrillation, unspecified type ([facility]) Type 2 diabetes mellitus without complication, with long-term current use of insulin ([facility]) Tobacco user Tobacco use disorder Needs flu shot Need for prophylactic vaccination and inoculation against influenza documented in this encounter [facility] HealthcareEvaluation note* Diagnosis Type 2 diabetes mellitus with hyperglycemia ([facility])- Primary Primary hypertension ([facility]) Unspecified essential hypertension Edema of extremities Edema Type 2 diabetes mellitus without complication, with long-term current use of insulin ([facility]) Vitamin D deficiency Tobacco user Tobacco use disorder Dizziness and giddiness Atrial fibrillation, unspecified type ([facility]) COPD mixed type ([facility]) documented in this encounter [facility] HealthcareEvaluation note* Diagnosis Primary hypertension ([facility])- Primary Unspecified essential hypertension Type 2 diabetes mellitus with diabetic neuropathy, with long-term current use of insulin ([facility]) Gastroesophageal reflux disease, unspecified whether esophagitis present Vitamin D deficiency Type 2 diabetes mellitus with complication, without long-term current use of insulin ([facility]) Mixed hyperlipidemia ([facility]) Mixed hyperlipidemia Encounter for screening mammogram for malignant neoplasm of breast SANTO (obstructive sleep apnea) Obstructive sleep apnea (adult) (pediatric) COPD mixed type ([facility]) Anxiety and depression ([facility]) COVID Open wound Open wound(s) (multiple) of unspecified site(s), without mention of complication Morbid obesity with body mass index (BMI) of 40.0 to 49.9 ([facility]) COPD mixed type ([facility])- Primary Dysuria Atrial fibrillation, unspecified type ([facility]) Gastroesophageal reflux disease, unspecified whether esophagitis present Type 2 diabetes mellitus with complication, without long-term current use of insulin ([facility]) Obesity (BMI 30-39.9) Tobacco user Tobacco use disorder Anxiety and depression ([facility]) Dermatitis Contact dermatitis and other eczema, due to unspecified cause Anxiety and depression ([facility])- Primary Obesity (BMI 30-39.9) Type 2 diabetes mellitus with complication, without long-term current use of insulin ([facility]) Medical non-compliance Tobacco user Tobacco use disorder Type 2 diabetes mellitus with hyperglycemia ([facility])- Primary Primary hypertension ([facility]) Unspecified essential hypertension Edema of extremities Edema Type 2 diabetes mellitus without complication, with long-term current use of insulin ([facility]) Vitamin D deficiency Tobacco user Tobacco use disorder Dizziness and giddiness Atrial fibrillation, unspecified type ([facility]) COPD mixed type ([facility]) Open wound of buttock, unspecified laterality, initial encounter- Primary Type 2 diabetes mellitus without complication, with long-term current use of insulin ([facility]) Obesity (BMI 30-39.9) Dizziness and giddiness Viral upper respiratory tract infection- Primary Acute upper respiratory infections of unspecified site Tobacco user Tobacco use disorder Open wound Open wound(s) (multiple) of unspecified site(s), without mention of complication Obesity (BMI 30-39.9) Type 2 diabetes mellitus without complication, with long-term current use of insulin ([facility]) Encounter for wellness examination- Primary Osteoporosis, unspecified osteoporosis type, unspecified pathological fracture presence ([facility]) Open wound of buttock, unspecified laterality, initial encounter Type 2 diabetes mellitus without complication, with long-term current use of insulin ([facility]) Obesity (BMI 30-39.9) Tobacco user Tobacco use disorder Anxiety and depression ([facility]) Type 2 diabetes mellitus with diabetic neuropathy, with long-term current use of insulin ([facility]) COPD mixed type ([facility] [place]) Diabetic polyneuropathy associated with type 2 diabetes mellitus ([facility]) Gastroesophageal reflux disease, unspecified whether esophagitis present Mixed hyperlipidemia ([facility]) Mixed hyperlipidemia Primary hypertension ([facility]) Unspecified essential hypertension Edema of extremities Edema Lung nodule, multiple Lymphadenopathy, generalized Vitamin D deficiency Oxygen dependent Dependence on supplemental oxygen Community acquired pneumonia, unspecified laterality COPD mixed type ([facility])- Primary SANTO (obstructive sleep apnea) Obstructive sleep apnea (adult) (pediatric) Lung nodule, multiple Community acquired pneumonia, unspecified laterality Primary hypertension ([facility]) Unspecified essential hypertension Atrial fibrillation, unspecified type ([facility]) Type 2 diabetes mellitus without complication, with long-term current use of insulin ([facility]) Tobacco user Tobacco use disorder Needs flu shot Need for prophylactic vaccination and inoculation against influenza Lung nodule, multiple- Primary documented in this encounter [facility] HealthcareEvaluation note* Diagnosis Primary hypertension ([facility])- Primary Unspecified essential hypertension Type 2 diabetes mellitus with diabetic neuropathy, with long-term current use of insulin ([facility]) Gastroesophageal reflux disease, unspecified whether esophagitis present Vitamin D deficiency Type 2 diabetes mellitus with complication, without long-term current use of insulin ([facility]) Mixed hyperlipidemia ([facility]) Mixed hyperlipidemia Encounter for screening mammogram for malignant neoplasm of breast SANTO (obstructive sleep apnea) Obstructive sleep apnea (adult) (pediatric) COPD mixed type ([facility]) Anxiety and depression ([facility]) COVID Open wound Open wound(s) (multiple) of unspecified site(s), without mention of complication Morbid obesity with body mass index (BMI) of 40.0 to 49.9 ([facility]) COPD mixed type ([facility])- Primary Dysuria Atrial fibrillation, unspecified type ([facility]) Gastroesophageal reflux disease, unspecified whether esophagitis present Type 2 diabetes mellitus with complication, without long-term current use of insulin ([facility]) Obesity (BMI 30-39.9) Tobacco user Tobacco use disorder Anxiety and depression ([facility]) Dermatitis Contact dermatitis and other eczema, due to unspecified cause Anxiety and depression ([facility])- Primary Obesity (BMI 30-39.9) Type 2 diabetes mellitus with complication, without long-term current use of insulin ([facility]) Medical non-compliance Tobacco user Tobacco use disorder Type 2 diabetes mellitus with hyperglycemia ([facility])- Primary Primary hypertension ([facility]) Unspecified essential hypertension Edema of extremities Edema Type 2 diabetes mellitus without complication, with long-term current use of insulin ([facility]) Vitamin D deficiency Tobacco user Tobacco use disorder Dizziness and giddiness Atrial fibrillation, unspecified type ([facility]) COPD mixed type ([facility]) Open wound of buttock, unspecified laterality, initial encounter- Primary Type 2 diabetes mellitus without complication, with long-term current use of insulin ([facility]) Obesity (BMI 30-39.9) Dizziness and giddiness Viral upper respiratory tract infection- Primary Acute upper respiratory infections of unspecified site Tobacco user Tobacco use disorder Open wound Open wound(s) (multiple) of unspecified site(s), without mention of complication Obesity (BMI 30-39.9) Type 2 diabetes mellitus without complication, with long-term current use of insulin ([facility]) Encounter for wellness examination- Primary Osteoporosis, unspecified osteoporosis type, unspecified pathological fracture presence ([facility]) Open wound of buttock, unspecified laterality, initial encounter Type 2 diabetes mellitus without complication, with long-term current use of insulin ([facility]) Obesity (BMI 30-39.9) Tobacco user Tobacco use disorder Anxiety and depression ([facility]) Type 2 diabetes mellitus with diabetic neuropathy, with long-term current use of insulin ([facility]) COPD mixed type ([facility]) Diabetic polyneuropathy associated with type 2 diabetes mellitus ([facility]) Gastroesophageal reflux disease, unspecified whether esophagitis present Mixed hyperlipidemia ([facility]) Mixed hyperlipidemia Primary hypertension ([facility]) Unspecified essential hypertension Edema of extremities Edema Lung nodule, multiple Lymphadenopathy, generalized Vitamin D deficiency Oxygen dependent Dependence on supplemental oxygen Community acquired pneumonia, unspecified laterality COPD mixed type ([facility])- Primary SANTO (obstructive sleep apnea) Obstructive sleep apnea (adult) (pediatric) Lung nodule, multiple Community acquired pneumonia, unspecified laterality Primary hypertension ([facility]) Unspecified essential hypertension Atrial fibrillation, unspecified type ([facility]) Type 2 diabetes mellitus without complication, with long-term current use of insulin ([facility]) Tobacco user Tobacco use disorder Needs flu shot Need for prophylactic vaccination and inoculation against influenza Right wrist pain- Primary Pain in joint, forearm Obesity (BMI 30-39.9) documented in this encounter [facility]* Diagnosis Primary hypertension ([facility])- Primary Unspecified essential hypertension Type 2 diabetes mellitus with diabetic neuropathy, with long-term current use of insulin ([facility]) Gastroesophageal reflux disease, unspecified whether esophagitis present Vitamin D deficiency Type 2 diabetes mellitus with complication, without long-term current use of insulin ([facility]) Mixed hyperlipidemia ([facility]) Mixed hyperlipidemia Encounter for screening mammogram for malignant neoplasm of breast SANTO (obstructive sleep apnea) Obstructive sleep apnea (adult) (pediatric) COPD mixed type ([facility]) Anxiety and depression ([facility]) COVID Open wound Open wound(s) (multiple) of unspecified site(s), without mention of complication Morbid obesity with body mass index (BMI) of 40.0 to 49.9 ([facility]) COPD mixed type ([facility])- Primary Dysuria Atrial fibrillation, unspecified type ([facility]) Gastroesophageal reflux disease, unspecified whether esophagitis present Type 2 diabetes mellitus with complication, without long-term current use of insulin ([facility]) Obesity (BMI 30-39.9) Tobacco user Tobacco use disorder Anxiety and depression ([facility]) Dermatitis Contact dermatitis and other eczema, due to unspecified cause Anxiety and depression ([facility])- Primary Obesity (BMI 30-39.9) Type 2 diabetes mellitus with complication, without long-term current use of insulin ([facility]) Medical non-compliance Tobacco user Tobacco use disorder Type 2 diabetes mellitus with hyperglycemia ([facility] [place])- Primary Primary hypertension ([facility]) Unspecified essential hypertension Edema of extremities Edema Type 2 diabetes mellitus without complication, with long-term current use of insulin ([facility]) Vitamin D deficiency Tobacco user Tobacco use disorder Dizziness and giddiness Atrial fibrillation, unspecified type ([facility]) COPD mixed type ([facility]) Open wound of buttock, unspecified laterality, initial encounter- Primary Type 2 diabetes mellitus without complication, with long-term current use of insulin ([facility]) Obesity (BMI 30-39.9) Dizziness and giddiness Viral upper respiratory tract infection- Primary Acute upper respiratory infections of unspecified site Tobacco user Tobacco use disorder Open wound Open wound(s) (multiple) of unspecified site(s), without mention of complication Obesity (BMI 30-39.9) Type 2 diabetes mellitus without complication, with long-term current use of insulin ([facility]) Type 2 diabetes mellitus with hyperglycemia, with long-term current use of insulin ([facility])- Primary Encounter for dietary consultation Vitamin D deficiency Primary hypertension ([facility]) Unspecified essential hypertension Hyperlipemia, mixed ([facility]) Mixed hyperlipidemia Insulin long-term use ([facility]) Encounter for long-term (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 Class 1 obesity due to excess calories without serious comorbidity with body mass index (BMI) of 33.0 to 33.9 in adult documented in this encounter [facility] HealthcareEvaluation note* Diagnosis Open wound of buttock, unspecified laterality, initial encounter- Primary Type 2 diabetes mellitus without complication, with long-term current use of insulin ([facility]) Obesity (BMI 30-39.9) Dizziness and giddiness documented in this encounter [facility]Evaluation note* Diagnosis Primary hypertension ([facility])- Primary Unspecified essential hypertension Type 2 diabetes mellitus with diabetic neuropathy, with long-term current use of insulin ([facility]) Gastroesophageal reflux disease, unspecified whether esophagitis present Vitamin D deficiency Type 2 diabetes mellitus with complication, without long-term current use of insulin ([facility]) Mixed hyperlipidemia ([facility]) Mixed hyperlipidemia Encounter for screening mammogram for malignant neoplasm of breast SANTO (obstructive sleep apnea) Obstructive sleep apnea (adult) (pediatric) COPD mixed type ([facility]) Anxiety and depression ([facility]) COVID Open wound Open wound(s) (multiple) of unspecified site(s), without mention of complication Morbid obesity with body mass index (BMI) of 40.0 to 49.9 ([facility]) COPD mixed type ([facility])- Primary Dysuria Atrial fibrillation, unspecified type ([facility]) Gastroesophageal reflux disease, unspecified whether esophagitis present Type 2 diabetes mellitus with complication, without long-term current use of insulin ([facility]) Obesity (BMI 30-39.9) Tobacco user Tobacco use disorder Anxiety and depression ([facility]) Dermatitis Contact dermatitis and other eczema, due to unspecified cause Anxiety and depression ([facility])- Primary Obesity (BMI 30-39.9) Type 2 diabetes mellitus with complication, without long-term current use of insulin ([facility]) Medical non-compliance Tobacco user Tobacco use disorder Type 2 diabetes mellitus with hyperglycemia ([facility])- Primary Primary hypertension ([facility]) Unspecified essential hypertension Edema of extremities Edema Type 2 diabetes mellitus without complication, with long-term current use of insulin ([facility]) Vitamin D deficiency Tobacco user Tobacco use disorder Dizziness and giddiness Atrial fibrillation, unspecified type ([facility]) COPD mixed type ([facility]) Open wound of buttock, unspecified laterality, initial encounter- Primary Type 2 diabetes mellitus without complication, with long-term current use of insulin ([facility]) Obesity (BMI 30-39.9) Dizziness and giddiness Viral upper respiratory tract infection- Primary Acute upper respiratory infections of unspecified site Tobacco user Tobacco use disorder Open wound Open wound(s) (multiple) of unspecified site(s), without mention of complication Obesity (BMI 30-39.9) Type 2 diabetes mellitus without complication, with long-term current use of insulin ([facility]) Encounter for wellness examination- Primary Osteoporosis, unspecified osteoporosis type, unspecified pathological fracture presence ([facility]) Open wound of buttock, unspecified laterality, initial encounter Type 2 diabetes mellitus without complication, with long-term current use of insulin ([facility]) Obesity (BMI 30-39.9) Tobacco user Tobacco use disorder Anxiety and depression ([facility]) Type 2 diabetes mellitus with diabetic neuropathy, with long-term current use of insulin ([facility]) COPD mixed type ([facility]) Diabetic polyneuropathy associated with type 2 diabetes mellitus ([facility]) Gastroesophageal reflux disease, unspecified whether esophagitis present Mixed hyperlipidemia ([facility]) Mixed hyperlipidemia Primary hypertension ([facility]) Unspecified essential hypertension Edema of extremities Edema Lung nodule, multiple Lymphadenopathy, generalized Vitamin D deficiency Oxygen dependent Dependence on supplemental oxygen Community acquired pneumonia, unspecified laterality COPD mixed type ([facility])- Primary SANTO (obstructive sleep apnea) Obstructive sleep apnea (adult) (pediatric) Lung nodule, multiple Community acquired pneumonia, unspecified laterality Primary hypertension ([facility]) Unspecified essential hypertension Atrial fibrillation, unspecified type ([facility]) Type 2 diabetes mellitus without complication, with long-term current use of insulin ([facility]) Tobacco user Tobacco use disorder Needs flu shot Need for prophylactic vaccination and inoculation against influenza Right wrist pain- Primary Pain in joint, forearm Obesity (BMI 30-39.9) Lung nodule, multiple- Primary COPD mixed type ([facility]) documented in this encounter [facility] HealthcareEvaluation note* Diagnosis Primary hypertension ([facility])- Primary Unspecified essential hypertension Type 2 diabetes mellitus with diabetic neuropathy, with long-term current use of insulin ([facility]) Gastroesophageal reflux disease, unspecified whether esophagitis present Vitamin D deficiency Type 2 diabetes mellitus with complication, without long-term current use of insulin ([facility]) Mixed hyperlipidemia ([facility]) Mixed hyperlipidemia Encounter for screening mammogram for malignant neoplasm of breast SANTO (obstructive sleep apnea) Obstructive sleep apnea (adult) (pediatric) COPD mixed type ([facility]) Anxiety and depression ([facility]) COVID Open wound Open wound(s) (multiple) of unspecified site(s), without mention of complication Morbid obesity with body mass index (BMI) of 40.0 to 49.9 ([facility]) COPD mixed type ([facility])- Primary Dysuria Atrial fibrillation, unspecified type ([facility]) Gastroesophageal reflux disease, unspecified whether esophagitis present Type 2 diabetes mellitus with complication, without long-term current use of insulin ([facility]) Obesity (BMI 30-39.9) Tobacco user Tobacco use disorder Anxiety and depression ([facility]) Dermatitis Contact dermatitis and other eczema, due to unspecified cause Anxiety and depression ([facility] [place])- Primary Obesity (BMI 30-39.9) Type 2 diabetes mellitus with complication, without long-term current use of insulin ([facility]) Medical non-compliance Tobacco user Tobacco use disorder Type 2 diabetes mellitus with hyperglycemia ([facility] [place])- Primary Primary hypertension ([facility] [place]) Unspecified essential hypertension Edema of extremities Edema Type 2 diabetes mellitus without complication, with long-term current use of insulin ([facility]) Vitamin D deficiency Tobacco user Tobacco use disorder Dizziness and giddiness Atrial fibrillation, unspecified type ([facility]) COPD mixed type ([facility]) Open wound of buttock, unspecified laterality, initial encounter- Primary Type 2 diabetes mellitus without complication, with long-term current use of insulin ([facility]) Obesity (BMI 30-39.9) Dizziness and giddiness Viral upper respiratory tract infection- Primary Acute upper respiratory infections of unspecified site Tobacco user Tobacco use disorder Open wound Open wound(s) (multiple) of unspecified site(s), without mention of complication Obesity (BMI 30-39.9) Type 2 diabetes mellitus without complication, with long-term current use of insulin ([facility]) Encounter for wellness examination- Primary Osteoporosis, unspecified osteoporosis type, unspecified pathological fracture presence ([facility]) Open wound of buttock, unspecified laterality, initial encounter Type 2 diabetes mellitus without complication, with long-term current use of insulin ([facility]) Obesity (BMI 30-39.9) Tobacco user Tobacco use disorder Anxiety and depression ([facility]) Type 2 diabetes mellitus with diabetic neuropathy, with long-term current use of insulin ([facility] [place]) COPD mixed type ([facility]) Diabetic polyneuropathy associated with type 2 diabetes mellitus ([facility]) Gastroesophageal reflux disease, unspecified whether esophagitis present Mixed hyperlipidemia ([facility]) Mixed hyperlipidemia Primary hypertension ([facility] [place]) Unspecified essential hypertension Edema of extremities Edema [...] complication, with long-term current use of insulin ([facility]) Tobacco user Tobacco use disorder Needs flu shot Need for prophylactic vaccination and inoculation against influenza Right wrist pain- Primary Pain in joint, forearm Obesity (BMI 30-39.9) 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 (CMS/HCC)- Primary documented in this encounter [facility]* Diagnosis Primary hypertension ([facility]/HCC)- Primary Unspecified essential hypertension Type 2 diabetes mellitus with diabetic neuropathy, with long-term current use of insulin (CMS/[facility]) Gastroesophageal reflux disease, unspecified whether esophagitis present Vitamin D deficiency Type 2 diabetes mellitus with complication, without long-term current use of insulin ([facility]) Mixed hyperlipidemia ([facility]) Mixed hyperlipidemia Encounter for screening mammogram for malignant neoplasm of breast SANTO (obstructive sleep apnea) Obstructive sleep apnea (adult) (pediatric) COPD mixed type (CMS/HCC) Anxiety and depression (CMS/[facility]) COVID Open wound Open wound(s) (multiple) of unspecified site(s), without mention of complication Morbid obesity with body mass index (BMI) of 40.0 to 49.9 (CMS/[facility]) COPD mixed type (CMS/HCC)- Primary Dysuria Atrial fibrillation, unspecified type (CMS/[facility]) Gastroesophageal reflux disease, unspecified whether esophagitis present Type 2 diabetes mellitus with complication, without long-term current use of insulin (CMS/[facility]) Obesity (BMI 30-39.9) Tobacco user Tobacco use disorder Anxiety and depression (CMS/[facility]) Dermatitis Contact dermatitis and other eczema, due to unspecified cause Anxiety and depression ([facility]/HCC)- Primary Obesity (BMI 30-39.9) Type 2 diabetes mellitus with complication, without long-term current use of insulin (CMS/[facility]) Medical non-compliance Tobacco user Tobacco use disorder Type 2 diabetes mellitus with hyperglycemia (CMS/[facility])- Primary Primary hypertension (CMS/[facility]) Unspecified essential hypertension Edema of extremities Edema Type 2 diabetes mellitus without complication, with long-term current use of insulin (CMS/[facility]) Vitamin D deficiency Tobacco user Tobacco use disorder Dizziness and giddiness Atrial fibrillation, unspecified type ([facility]) COPD mixed type ([facility]) Open wound of buttock, unspecified laterality, initial encounter- Primary Type 2 diabetes mellitus without complication, with long-term current use of insulin ([facility]) Obesity (BMI 30-39.9) Dizziness and giddiness Viral upper respiratory tract infection- Primary Acute upper respiratory infections of unspecified site Tobacco user Tobacco use disorder Open wound Open wound(s) (multiple) of unspecified site(s), without mention of complication Obesity (BMI 30-39.9) Type 2 diabetes mellitus without complication, with long-term current use of insulin ([facility]) Encounter for wellness examination- Primary Osteoporosis, unspecified osteoporosis type, unspecified pathological fracture presence ([facility]) Open wound of buttock, unspecified laterality, initial encounter Type 2 diabetes mellitus without complication, with long-term current use of insulin ([facility]) Obesity (BMI 30-39.9) Tobacco user Tobacco use disorder Anxiety and depression ([facility]) Type 2 diabetes mellitus with diabetic neuropathy, with long-term current use of insulin ([facility]) COPD mixed type ([facility]) Diabetic polyneuropathy associated with type 2 diabetes mellitus ([facility]) Gastroesophageal reflux disease, unspecified whether esophagitis present Mixed hyperlipidemia ([facility]) Mixed hyperlipidemia Primary hypertension ([facility]) Unspecified essential hypertension Edema of extremities Edema Lung nodule, multiple Lymphadenopathy, generalized Vitamin D deficiency Oxygen dependent Dependence on supplemental oxygen Community acquired pneumonia, unspecified laterality COPD mixed type ([facility])- Primary SANTO (obstructive sleep apnea) Obstructive sleep apnea (adult) (pediatric) Lung nodule, multiple Community acquired pneumonia, unspecified laterality Primary hypertension ([facility]) Unspecified essential hypertension Atrial fibrillation, unspecified type ([facility]) Type 2 diabetes mellitus without complication, with long-term current use of insulin ([facility]) Tobacco user Tobacco use disorder Needs flu shot Need for prophylactic vaccination and inoculation against influenza Right wrist pain- Primary Pain in joint, forearm Obesity (BMI 30-39.9) 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 ([facility])- Primary Oxygen dependent- Primary Dependence on supplemental oxygen COPD mixed type ([facility]) Obesity (BMI 30-39.9) COPD with acute exacerbation ([facility]) documented in this encounter [facility] note* Diagnosis Primary hypertension ([facility])- Primary Unspecified essential hypertension Type 2 diabetes mellitus with diabetic neuropathy, with long-term current use of insulin ([facility]) Gastroesophageal reflux disease, unspecified whether esophagitis present Vitamin D deficiency Type 2 diabetes mellitus with complication, without long-term current use of insulin ([facility]) Mixed hyperlipidemia ([facility]) Mixed hyperlipidemia Encounter for screening mammogram for malignant neoplasm of breast SANTO (obstructive sleep apnea) Obstructive sleep apnea (adult) (pediatric) COPD mixed type ([facility]) Anxiety and depression ([facility]) COVID Open wound Open wound(s) (multiple) of unspecified site(s), without mention of complication Morbid obesity with body mass index (BMI) of 40.0 to 49.9 ([facility]) COPD mixed type ([facility])- Primary Dysuria Atrial fibrillation, unspecified type ([facility]) Gastroesophageal reflux disease, unspecified whether esophagitis present Type 2 diabetes mellitus with complication, without long-term current use of insulin ([facility]) Obesity (BMI 30-39.9) Tobacco user Tobacco use disorder Anxiety and depression ([facility]) Dermatitis Contact dermatitis and other eczema, due to unspecified cause Anxiety and depression ([facility])- Primary Obesity (BMI 30-39.9) Type 2 diabetes mellitus with complication, without long-term current use of insulin ([facility]) Medical non-compliance Tobacco user Tobacco use disorder Type 2 diabetes mellitus with hyperglycemia ([facility])- Primary Primary hypertension ([facility]) Unspecified essential hypertension Edema of extremities Edema Type 2 diabetes mellitus without complication, with long-term current use of insulin ([facility]) Vitamin D deficiency Tobacco user Tobacco use disorder Dizziness and giddiness Atrial fibrillation, unspecified type ([facility]) COPD mixed type ([facility]) Open wound of buttock, unspecified laterality, initial encounter- Primary Type 2 diabetes mellitus without complication, with long-term current use of insulin ([facility]) Obesity (BMI 30-39.9) Dizziness and giddiness Viral upper respiratory tract infection- Primary Acute upper respiratory infections of unspecified site Tobacco user Tobacco use disorder Open wound Open wound(s) (multiple) of unspecified site(s), without mention of complication Obesity (BMI 30-39.9) Type 2 diabetes mellitus without complication, with long-term current use of insulin ([facility]) Encounter for wellness examination- Primary Osteoporosis, unspecified osteoporosis type, unspecified pathological fracture presence ([facility]) Open wound of buttock, unspecified laterality, initial encounter Type 2 diabetes mellitus without complication, with long-term current use of insulin ([facility]) Obesity (BMI 30-39.9) Tobacco user Tobacco use disorder Anxiety and depression ([facility]) Type 2 diabetes mellitus with diabetic neuropathy, with long-term current use of insulin ([facility]) COPD mixed type ([facility]) Diabetic polyneuropathy associated with type 2 diabetes mellitus ([facility]) Gastroesophageal reflux disease, unspecified whether esophagitis present Mixed hyperlipidemia ([facility]) Mixed hyperlipidemia Primary hypertension ([facility]) Unspecified essential hypertension Edema of extremities Edema Lung nodule, multiple Lymphadenopathy, generalized Vitamin D deficiency Oxygen dependent Dependence on supplemental oxygen Community acquired pneumonia, unspecified laterality COPD mixed type ([facility])- Primary SANTO (obstructive sleep apnea) Obstructive sleep apnea (adult) (pediatric) Lung nodule, multiple Community acquired pneumonia, unspecified laterality Primary hypertension ([facility]) Unspecified essential hypertension Atrial fibrillation, unspecified type ([facility]) Type 2 diabetes mellitus without complication, with long-term current use of insulin ([facility]) Tobacco user Tobacco use disorder Needs flu shot Need for prophylactic vaccination and inoculation against influenza Right wrist pain- Primary Pain in joint, forearm Obesity (BMI 30-39.9) 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 ([facility])- Primary COPD with acute exacerbation ([facility])- Primary Oxygen dependent Dependence on supplemental oxygen COPD mixed type ([facility]) Obesity (BMI 30-39.9) COPD mixed type ([facility]) documented in this encounter [facility] HealthcareEvaluation [facility]* Diagnosis Primary hypertension ([facility])- Primary Unspecified essential hypertension Type 2 diabetes mellitus with diabetic neuropathy, with long-term current use of insulin ([facility]) Gastroesophageal reflux disease, unspecified whether esophagitis present Vitamin D deficiency Type 2 diabetes mellitus with complication, without long-term current use of insulin ([facility]) Mixed hyperlipidemia ([facility]) Mixed hyperlipidemia Encounter for screening mammogram for malignant neoplasm of breast SANTO (obstructive sleep apnea) Obstructive sleep apnea (adult) (pediatric) COPD mixed type ([facility]) Anxiety and depression ([facility]) COVID Open wound Open wound(s) (multiple) of unspecified site(s), without mention of complication Morbid obesity with body mass index (BMI) of 40.0 to 49.9 ([facility] [place]) COPD mixed type ([facility])- Primary Dysuria Atrial fibrillation, unspecified type ([facility] [place]) Gastroesophageal reflux disease, unspecified whether esophagitis present Type 2 diabetes mellitus with complication, without long-term current use of insulin ([facility] [place]) Obesity (BMI 30-39.9) Tobacco user Tobacco use disorder Anxiety and depression ([facility] [place]) Dermatitis Contact dermatitis and other eczema, due to unspecified cause Anxiety and depression ([facility] [place])- Primary Obesity (BMI 30-39.9) Type 2 diabetes mellitus with complication, without long-term current use of insulin ([facility] [place]) Medical non-compliance Tobacco user Tobacco use disorder Type 2 diabetes mellitus with hyperglycemia ([facility] [place])- Primary Primary hypertension ([facility] [place]) Unspecified essential hypertension Edema of extremities Edema Type 2 diabetes mellitus without complication, with long-term current use of insulin ([facility] [place]) Vitamin D deficiency Tobacco user Tobacco use disorder Dizziness and giddiness Atrial fibrillation, unspecified type ([facility] [place]) COPD mixed type ([facility]) Open wound of buttock, unspecified laterality, initial encounter- Primary Type 2 diabetes mellitus without complication, with long-term current use of insulin ([facility]) Obesity (BMI 30-39.9) Dizziness and giddiness Viral upper respiratory tract infection- Primary Acute upper respiratory infections of unspecified site Tobacco user Tobacco use disorder Open wound Open wound(s) (multiple) of unspecified site(s), without mention of complication Obesity (BMI 30-39.9) Type 2 diabetes mellitus without complication, with long-term current use of insulin ([facility] [place]) Encounter for wellness examination- Primary Osteoporosis, unspecified osteoporosis type, unspecified pathological fracture presence ([facility] [place]) Open wound of buttock, unspecified laterality, initial encounter Type 2 diabetes mellitus without complication, with long-term current use of insulin ([facility]) Obesity (BMI 30-39.9) Tobacco user Tobacco use disorder Anxiety and depression ([facility] [place]) Type 2 diabetes mellitus with diabetic neuropathy, with long-term current use of insulin ([facility] [place]) COPD mixed type ([facility]) Diabetic polyneuropathy associated with type 2 diabetes mellitus ([facility]) Gastroesophageal reflux disease, unspecified whether esophagitis present Mixed hyperlipidemia ([facility] [place]) Mixed hyperlipidemia Primary hypertension ([facility]) Unspecified essential hypertension Edema of extremities Edema Lung nodule, multiple Lymphadenopathy, generalized Vitamin D deficiency Oxygen dependent Dependence on supplemental oxygen Community acquired pneumonia, unspecified laterality COPD mixed type ([facility])- Primary SANTO (obstructive sleep apnea) Obstructive sleep apnea (adult) (pediatric) Lung nodule, multiple Community acquired pneumonia, unspecified laterality Primary hypertension ([facility]) Unspecified essential hypertension Atrial fibrillation, unspecified type ([facility]) Type 2 diabetes mellitus without complication, with long-term current use of insulin ([facility]) Tobacco user Tobacco use disorder Needs flu shot Need for prophylactic vaccination and inoculation against influenza Right wrist pain- Primary Pain in joint, forearm Obesity (BMI 30-39.9) 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 ([facility])- Primary COPD with acute exacerbation ([facility])- Primary Oxygen dependent Dependence on supplemental oxygen COPD mixed type ([facility]) Obesity (BMI 30-39.9) COVID- Primary Type 2 diabetes mellitus with diabetic polyneuropathy ([facility]) Type 2 diabetes mellitus with hyperglycemia ([facility]) 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 classified elsewhere ([facility]) [facility] (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 ([facility] COPD mixed type ([facility]) Paroxysmal atrial fibrillation ([facility]) Atrial fibrillation Primary hypertension ([facility]) Unspecified essential hypertension Tobacco user Tobacco use disorder documented in this encounter [facility] Healthcare[facility]* Diagnosis Primary hypertension ([facility])- Primary Unspecified essential hypertension Type 2 diabetes mellitus with diabetic neuropathy, with long-term current use of insulin ([facility]) Gastroesophageal reflux disease, unspecified whether esophagitis present Vitamin D deficiency Type 2 diabetes mellitus with complication, without long-term current use of insulin ([facility]) Mixed hyperlipidemia ([facility]) Mixed hyperlipidemia Encounter for screening mammogram for malignant neoplasm of breast SANTO (obstructive sleep apnea) Obstructive sleep apnea (adult) (pediatric) COPD mixed type ([facility]) Anxiety and depression ([facility]) COVID Open wound Open wound(s) (multiple) of unspecified site(s), without mention of complication Morbid obesity with body mass index (BMI) of 40.0 to 49.9 ([facility]) COPD mixed type ([facility])- Primary Dysuria Atrial fibrillation, unspecified type ([facility]) Gastroesophageal reflux disease, unspecified whether esophagitis present Type 2 diabetes mellitus with complication, without long-term current use of insulin ([facility]) Obesity (BMI 30-39.9) Tobacco user Tobacco use disorder Anxiety and depression ([facility]) Dermatitis Contact dermatitis and other eczema, due to unspecified cause Anxiety and depression ([facility])- Primary Obesity (BMI 30-39.9) Type 2 diabetes mellitus with complication, without long-term current use of insulin ([facility]) Medical non-compliance Tobacco user Tobacco use disorder Type 2 diabetes mellitus with hyperglycemia ([facility])- Primary Primary hypertension ([facility]) Unspecified essential hypertension Edema of extremities Edema Type 2 diabetes mellitus without complication, with long-term current use of insulin ([facility]) Vitamin D deficiency Tobacco user Tobacco use disorder Dizziness and giddiness Atrial fibrillation, unspecified type ([facility]) COPD mixed type ([facility]) Open wound of buttock, unspecified laterality, initial encounter- Primary Type 2 diabetes mellitus without complication, with long-term current use of insulin ([facility]) Obesity (BMI 30-39.9) Dizziness and giddiness Viral upper respiratory tract infection- Primary Acute upper respiratory infections of unspecified site Tobacco user Tobacco use disorder Open wound Open wound(s) (multiple) of unspecified site(s), without mention of complication Obesity (BMI 30-39.9) Type 2 diabetes mellitus without complication, with long-term current use of insulin ([facility]) Encounter for wellness examination- Primary Osteoporosis, unspecified osteoporosis type, unspecified pathological fracture presence ([facility]) Open wound of buttock, unspecified laterality, initial encounter Type 2 diabetes mellitus without complication, with long-term current use of insulin ([facility]) Obesity (BMI 30-39.9) Tobacco user Tobacco use disorder Anxiety and depression ([facility]) Type 2 diabetes mellitus with diabetic neuropathy, with long-term current use of insulin ([facility]) COPD mixed type ([facility]) Diabetic polyneuropathy associated with type 2 diabetes mellitus ([facility]) Gastroesophageal reflux disease, unspecified whether esophagitis present Mixed hyperlipidemia ([facility]) Mixed hyperlipidemia Primary hypertension ([facility]) Unspecified essential hypertension Edema of extremities Edema Lung nodule, multiple Lymphadenopathy, generalized Vitamin D deficiency Oxygen dependent Dependence on supplemental oxygen Community acquired pneumonia, unspecified laterality COPD mixed type ([facility])- Primary SANTO (obstructive sleep apnea) Obstructive sleep apnea (adult) (pediatric) Lung nodule, multiple Community acquired pneumonia, unspecified laterality Primary hypertension (CMS/HCC) Unspecified essential hypertension Atrial fibrillation, unspecified type ([facility]/HCC) Type 2 diabetes mellitus without complication, with long-term current use of insulin ([facility]) Tobacco user Tobacco use disorder Needs flu shot Need for prophylactic vaccination and inoculation against influenza Right wrist pain- Primary Pain in joint, forearm Obesity (BMI 30-39.9) 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 ([facility]/HCC)- Primary COPD with acute exacerbation ([facility])- Primary Oxygen dependent Dependence on supplemental oxygen COPD mixed type (CMS/HCC) Obesity (BMI 30-39.9) COVID- Primary Type 2 diabetes mellitus with diabetic polyneuropathy ([facility]) Type 2 diabetes mellitus with hyperglycemia ([facility]) 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 classified elsewhere ([facility]) [facility] (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 ([facility] COPD mixed type ([facility]) Paroxysmal atrial fibrillation ([facility]) Atrial fibrillation Primary hypertension ([facility]) Unspecified essential hypertension Tobacco user Tobacco use disorder 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 ([facility]/HCC)- Primary documented in this encounter [facility] HealthcareEvaluation note* Diagnosis Primary hypertension ([facility]/HCC)- Primary Unspecified essential hypertension Type 2 diabetes mellitus with diabetic neuropathy, with long-term current use of insulin ([facility]) Gastroesophageal reflux disease, unspecified whether esophagitis present Vitamin D deficiency Type 2 diabetes mellitus with complication, without long-term current use of insulin ([facility]) Mixed hyperlipidemia ([facility]) Mixed hyperlipidemia Encounter for screening mammogram for malignant neoplasm of breast SANTO (obstructive sleep apnea) Obstructive sleep apnea (adult) (pediatric) COPD mixed type ([facility]/HCC) Anxiety and depression ([facility]) COVID Open wound Open wound(s) (multiple) of unspecified site(s), without mention of complication Morbid obesity with body mass index (BMI) of 40.0 to 49.9 ([facility]) COPD mixed type ([facility]/HCC)- Primary Dysuria Atrial fibrillation, unspecified type ([facility]/HCC) Gastroesophageal reflux disease, unspecified whether esophagitis present Type 2 diabetes mellitus with complication, without long-term current use of insulin ([facility]) Obesity (BMI 30-39.9) Tobacco user Tobacco use disorder Anxiety and depression ([facility]) Dermatitis Contact dermatitis and other eczema, due to unspecified cause Anxiety and depression ([facility])- Primary Obesity (BMI 30-39.9) Type 2 diabetes mellitus with complication, without long-term current use of insulin ([facility]) Medical non-compliance Tobacco user Tobacco use disorder Type 2 diabetes mellitus with hyperglycemia ([facility] [facility])- Primary Primary hypertension ([facility]) Unspecified essential hypertension Edema of extremities Edema Type 2 diabetes mellitus without complication, with long-term current use of insulin ([facility]) Vitamin D deficiency Tobacco user Tobacco use disorder Dizziness and giddiness Atrial fibrillation, unspecified type ([facility]) COPD mixed type ([facility]) Open wound of buttock, unspecified laterality, initial encounter- Primary Type 2 diabetes mellitus without complication, with long-term current use of insulin ([facility]) Obesity (BMI 30-39.9) Dizziness and giddiness Viral upper respiratory tract infection- Primary Acute upper respiratory infections of unspecified site Tobacco user Tobacco use disorder Open wound Open wound(s) (multiple) of unspecified site(s), without mention of complication Obesity (BMI 30-39.9) Type 2 diabetes mellitus without complication, with long-term current use of insulin ([facility]) Encounter for wellness examination- Primary Osteoporosis, unspecified osteoporosis type, unspecified pathological fracture presence ([facility]) Open wound of buttock, unspecified laterality, initial encounter Type 2 diabetes mellitus without complication, with long-term current use of insulin ([facility]) Obesity (BMI 30-39.9) Tobacco user Tobacco use disorder Anxiety and depression ([facility]) Type 2 diabetes mellitus with diabetic neuropathy, with long-term current use of insulin ([facility]) COPD mixed type ([facility]) Diabetic polyneuropathy associated with type 2 diabetes mellitus ([facility]) Gastroesophageal reflux disease, unspecified whether esophagitis present Mixed hyperlipidemia ([facility]) Mixed hyperlipidemia Primary hypertension ([facility]) Unspecified essential hypertension Edema of extremities Edema Lung nodule, multiple Lymphadenopathy, generalized Vitamin D deficiency Oxygen dependent Dependence on supplemental oxygen Community acquired pneumonia, unspecified laterality COPD mixed type ([facility])- Primary SANTO (obstructive sleep apnea) Obstructive sleep apnea (adult) (pediatric) Lung nodule, multiple Community acquired pneumonia, unspecified laterality Primary hypertension ([facility]) Unspecified essential hypertension Atrial fibrillation, unspecified type ([facility]) Type 2 diabetes mellitus without complication, with long-term current use of insulin ([facility]) Tobacco user Tobacco use disorder Needs flu shot Need for prophylactic vaccination and inoculation against influenza Right wrist pain- Primary Pain in joint, forearm Obesity (BMI 30-39.9) 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 ([facility])- Primary COPD with acute exacerbation ([facility])- Primary Oxygen dependent Dependence on supplemental oxygen COPD mixed type ([facility]) Obesity (BMI 30-39.9) COVID- Primary Type 2 diabetes mellitus with diabetic polyneuropathy ([facility]) Type 2 diabetes mellitus with hyperglycemia ([facility]) 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 classified elsewhere ([facility]) [facility] (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 ([facility] COPD mixed type ([facility]) Paroxysmal atrial fibrillation ([facility]) Atrial fibrillation Primary hypertension ([facility]) Unspecified essential hypertension Tobacco user Tobacco use disorder Type 2 diabetes mellitus without complication, with long-term current use of insulin ([facility])- Primary documented in this encounter [facility] HealthcareEvaluation note* Diagnosis Primary hypertension ([facility])- Primary Unspecified essential hypertension Type 2 diabetes mellitus with diabetic neuropathy, with long-term current use of insulin ([facility]) Gastroesophageal reflux disease, unspecified whether esophagitis present Vitamin D deficiency Type 2 diabetes mellitus with complication, without long-term current use of insulin ([facility]) Mixed hyperlipidemia ([facility]) Mixed hyperlipidemia Encounter for screening mammogram for malignant neoplasm of breast SANTO (obstructive sleep apnea) Obstructive sleep apnea (adult) (pediatric) COPD mixed type ([facility]) Anxiety and depression ([facility]) COVID Open wound Open wound(s) (multiple) of unspecified site(s), without mention of complication Morbid obesity with body mass index (BMI) of 40.0 to 49.9 ([facility]) COPD mixed type ([facility])- Primary Dysuria Atrial fibrillation, unspecified type ([facility]) Gastroesophageal reflux disease, unspecified whether esophagitis present Type 2 diabetes mellitus with complication, without long-term current use of insulin ([facility]) Obesity (BMI 30-39.9) Tobacco user Tobacco use disorder Anxiety and depression ([facility]) Dermatitis Contact dermatitis and other eczema, due to unspecified cause Anxiety and depression ([facility])- Primary Obesity (BMI 30-39.9) Type 2 diabetes mellitus with complication, without long-term current use of insulin ([facility]) Medical non-compliance Tobacco user Tobacco use disorder Type 2 diabetes mellitus with hyperglycemia ([facility])- Primary Primary hypertension ([facility]) Unspecified essential hypertension Edema of extremities Edema Type 2 diabetes mellitus without complication, with long-term current use of insulin ([facility]) Vitamin D deficiency Tobacco user Tobacco use disorder Dizziness and giddiness Atrial fibrillation, unspecified type ([facility]) COPD mixed type ([facility]) Open wound of buttock, unspecified laterality, initial encounter- Primary Type 2 diabetes mellitus without complication, with long-term current use of insulin ([facility]) Obesity (BMI 30-39.9) Dizziness and giddiness Viral upper respiratory tract infection- Primary Acute upper respiratory infections of unspecified site Tobacco user Tobacco use disorder Open wound Open wound(s) (multiple) of unspecified site(s), without mention of complication Obesity (BMI 30-39.9) Type 2 diabetes mellitus without complication, with long-term current use of insulin ([facility]) Encounter for wellness examination- Primary Osteoporosis, unspecified osteoporosis type, unspecified pathological fracture presence ([facility]) Open wound of buttock, unspecified laterality, initial encounter Type 2 diabetes mellitus without complication, with long-term current use of insulin ([facility]) Obesity (BMI 30-39.9) Tobacco user Tobacco use disorder Anxiety and depression ([facility]) Type 2 diabetes mellitus with diabetic neuropathy, with long-term current use of insulin ([facility]) COPD mixed type ([facility]) Diabetic polyneuropathy associated with type 2 diabetes mellitus ([facility]) Gastroesophageal reflux disease, unspecified whether esophagitis present Mixed hyperlipidemia ([facility]) Mixed hyperlipidemia Primary hypertension ([facility]) Unspecified essential hypertension Edema of extremities Edema Lung nodule, multiple Lymphadenopathy, generalized Vitamin D deficiency Oxygen dependent Dependence on supplemental oxygen Community acquired pneumonia, unspecified laterality COPD mixed type ([facility])- Primary SANTO (obstructive sleep apnea) Obstructive sleep apnea (adult) (pediatric) Lung nodule, multiple Community acquired pneumonia, unspecified laterality Primary hypertension ([facility]) Unspecified essential hypertension Atrial fibrillation, unspecified type ([facility]) Type 2 diabetes mellitus without complication, with long-term current use of insulin ([facility]) Tobacco user Tobacco use disorder Needs flu shot Need for prophylactic vaccination and inoculation against influenza Right wrist pain- Primary Pain in joint, forearm Obesity (BMI 30-39.9) 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 ([facility])- Primary COPD with acute exacerbation ([facility])- Primary Oxygen dependent Dependence on supplemental oxygen COPD mixed type ([facility]) Obesity (BMI 30-39.9) COVID- Primary Type 2 diabetes mellitus with diabetic polyneuropathy ([facility]) Type 2 diabetes mellitus with hyperglycemia ([facility]) 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 classified elsewhere ([facility]) 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 ([facility] COPD mixed type ([facility]) Paroxysmal atrial fibrillation ([facility]) Atrial fibrillation Primary hypertension ([facility]) Unspecified essential hypertension Tobacco user Tobacco use disorder Diarrhea, unspecified type- Primary Type 2 diabetes mellitus with hyperglycemia, with long-term current use of insulin ([facility]) documented in this encounter [facility] HealthcareEvaluation [facility]* Diagnosis Primary hypertension ([facility])- Primary Unspecified essential hypertension Type 2 diabetes mellitus with diabetic neuropathy, with long-term current use of insulin ([facility]) Gastroesophageal reflux disease, unspecified whether esophagitis present Vitamin D deficiency Type 2 diabetes mellitus with complication, without long-term current use of insulin ([facility]) Mixed hyperlipidemia ([facility]) Mixed hyperlipidemia Encounter for screening mammogram for malignant neoplasm of breast SANTO (obstructive sleep apnea) Obstructive sleep apnea (adult) (pediatric) COPD mixed type ([facility]) Anxiety and depression ([facility]) COVID Open wound Open wound(s) (multiple) of unspecified site(s), without mention of complication Morbid obesity with body mass index (BMI) of 40.0 to 49.9 ([facility]) COPD mixed type ([facility])- Primary Dysuria Atrial fibrillation, unspecified type ([facility]) Gastroesophageal reflux disease, unspecified whether esophagitis present Type 2 diabetes mellitus with complication, without long-term current use of insulin ([facility]) Obesity (BMI 30-39.9) Tobacco user Tobacco use disorder Anxiety and depression ([facility]) Dermatitis Contact dermatitis and other eczema, due to unspecified cause Anxiety and depression ([facility])- Primary Obesity (BMI 30-39.9) Type 2 diabetes mellitus with complication, without long-term current use of insulin ([facility]) Medical non-compliance Tobacco user Tobacco use disorder Type 2 diabetes mellitus with hyperglycemia ([facility])- Primary Primary hypertension ([facility]) Unspecified essential hypertension Edema of extremities Edema Type 2 diabetes mellitus without complication, with long-term current use of insulin ([facility]) Vitamin D deficiency Tobacco user Tobacco use disorder Dizziness and giddiness Atrial fibrillation, unspecified type ([facility]) COPD mixed type ([facility]) Open wound of buttock, unspecified laterality, initial encounter- Primary Type 2 diabetes mellitus without complication, with long-term current use of insulin ([facility]) Obesity (BMI 30-39.9) Dizziness and giddiness Viral upper respiratory tract infection- Primary Acute upper respiratory infections of unspecified site Tobacco user Tobacco use disorder Open wound Open wound(s) (multiple) of unspecified site(s), without mention of complication Obesity (BMI 30-39.9) Type 2 diabetes mellitus without complication, with long-term current use of insulin ([facility]) Encounter for wellness examination- Primary Osteoporosis, unspecified osteoporosis type, unspecified pathological fracture presence ([facility]) Open wound of buttock, unspecified laterality, initial encounter Type 2 diabetes mellitus without complication, with long-term current use of insulin ([facility]) Obesity (BMI 30-39.9) Tobacco user Tobacco use disorder Anxiety and depression ([facility]) Type 2 diabetes mellitus with diabetic neuropathy, with long-term current use of insulin ([facility]) COPD mixed type ([facility]) Diabetic polyneuropathy associated with type 2 diabetes mellitus ([facility]) Gastroesophageal reflux disease, unspecified whether esophagitis present Mixed hyperlipidemia ([facility]) Mixed hyperlipidemia Primary hypertension ([facility]) Unspecified essential hypertension Edema of extremities Edema Lung nodule, multiple Lymphadenopathy, generalized Vitamin D deficiency Oxygen dependent Dependence on supplemental oxygen Community acquired pneumonia, unspecified laterality COPD mixed type ([facility])- Primary SANTO (obstructive sleep apnea) Obstructive sleep apnea (adult) (pediatric) Lung nodule, multiple Community acquired pneumonia, unspecified laterality Primary hypertension ([facility]) Unspecified essential hypertension Atrial fibrillation, unspecified type ([facility]) Type 2 diabetes mellitus without complication, with long-term current use of insulin ([facility]) Tobacco user Tobacco use disorder Needs flu shot Need for prophylactic vaccination and inoculation against influenza Right wrist pain- Primary Pain in joint, forearm Obesity (BMI 30-39.9) 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 ([facility])- Primary COPD with acute exacerbation ([facility])- Primary Oxygen dependent Dependence on supplemental oxygen COPD mixed type ([facility]) Obesity (BMI 30-39.9) COVID- Primary Type 2 diabetes mellitus with diabetic polyneuropathy ([facility]) Type 2 diabetes mellitus with hyperglycemia ([facility]) 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 classified elsewhere ([facility]) [facility] (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 ([facility] COPD mixed type ([facility] Paroxysmal atrial fibrillation ([facility]) Atrial fibrillation Primary hypertension ([facility]) Unspecified essential hypertension Tobacco user Tobacco use disorder Diarrhea, unspecified type- Primary documented in this encounter [facility] HealthcareEvaluation [facility]* Diagnosis Primary hypertension ([facility])- Primary Unspecified essential hypertension Type 2 diabetes mellitus with diabetic neuropathy, with long-term current use of insulin ([facility]) Gastroesophageal reflux disease, unspecified whether esophagitis present Vitamin D deficiency Type 2 diabetes mellitus with complication, without long-term current use of insulin ([facility]) Mixed hyperlipidemia ([facility]) Mixed hyperlipidemia Encounter for screening mammogram for malignant neoplasm of breast SANTO (obstructive sleep apnea) Obstructive sleep apnea (adult) (pediatric) COPD mixed type ([facility]) Anxiety and depression ([facility]) COVID Open wound Open wound(s) (multiple) of unspecified site(s), without mention of complication Morbid obesity with body mass index (BMI) of 40.0 to 49.9 ([facility]) COPD mixed type ([facility])- Primary Dysuria Atrial fibrillation, unspecified type ([facility]) Gastroesophageal reflux disease, unspecified whether esophagitis present Type 2 diabetes mellitus with complication, without long-term current use of insulin ([facility]) Obesity (BMI 30-39.9) Tobacco user Tobacco use disorder Anxiety and depression ([facility]) Dermatitis Contact dermatitis and other eczema, due to unspecified cause Anxiety and depression ([facility])- Primary Obesity (BMI 30-39.9) Type 2 diabetes mellitus with complication, without long-term current use of insulin ([facility]) Medical non-compliance Tobacco user Tobacco use disorder Type 2 diabetes mellitus with hyperglycemia ([facility])- Primary Primary hypertension ([facility]) Unspecified essential hypertension Edema of extremities Edema Type 2 diabetes mellitus without complication, with long-term current use of insulin ([facility]) Vitamin D deficiency Tobacco user Tobacco use disorder Dizziness and giddiness Atrial fibrillation, unspecified type ([facility]) COPD mixed type ([facility]) Open wound of buttock, unspecified laterality, initial encounter- Primary Type 2 diabetes mellitus without complication, with long-term current use of insulin ([facility]) Obesity (BMI 30-39.9) Dizziness and giddiness Viral upper respiratory tract infection- Primary Acute upper respiratory infections of unspecified site Tobacco user Tobacco use disorder Open wound Open wound(s) (multiple) of unspecified site(s), without mention of complication Obesity (BMI 30-39.9) Type 2 diabetes mellitus without complication, with long-term current use of insulin ([facility]) Encounter for wellness examination- Primary Osteoporosis, unspecified osteoporosis type, unspecified pathological fracture presence ([facility]) Open wound of buttock, unspecified laterality, initial encounter Type 2 diabetes mellitus without complication, with long-term current use of insulin ([facility]) Obesity (BMI 30-39.9) Tobacco user Tobacco use disorder Anxiety and depression ([facility]) Type 2 diabetes mellitus with diabetic neuropathy, with long-term current use of insulin ([facility]) COPD mixed type ([facility]) Diabetic polyneuropathy associated with type 2 diabetes mellitus ([facility]) Gastroesophageal reflux disease, unspecified whether esophagitis present Mixed hyperlipidemia ([facility]) Mixed hyperlipidemia Primary hypertension ([facility]) Unspecified essential hypertension Edema of extremities Edema Lung nodule, multiple Lymphadenopathy, generalized Vitamin D deficiency Oxygen dependent Dependence on supplemental oxygen Community acquired pneumonia, unspecified laterality COPD mixed type ([facility])- Primary SANTO (obstructive sleep apnea) Obstructive sleep apnea (adult) (pediatric) Lung nodule, multiple Community acquired pneumonia, unspecified laterality Primary hypertension ([facility]) Unspecified essential hypertension Atrial fibrillation, unspecified type ([facility]) Type 2 diabetes mellitus without complication, with long-term current use of insulin ([facility]) Tobacco user Tobacco use disorder Needs flu shot Need for prophylactic vaccination and inoculation against influenza Right wrist pain- Primary Pain in joint, forearm Obesity (BMI 30-39.9) 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 ([facility])- Primary COPD with acute exacerbation ([facility])- Primary Oxygen dependent Dependence on supplemental oxygen COPD mixed type ([facility]) Obesity (BMI 30-39.9) COVID- Primary Type 2 diabetes mellitus with diabetic polyneuropathy ([facility]) Type 2 diabetes mellitus with hyperglycemia ([facility]) 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 classified elsewhere ([facility]) 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 ([facility] COPD mixed type ([facility]) Paroxysmal atrial fibrillation ([facility]) Atrial fibrillation Primary hypertension ([facility]) Unspecified essential hypertension Tobacco user Tobacco use disorder Type 2 diabetes mellitus with diabetic neuropathy, with long-term current use of insulin ([facility]) documented in this encounter [facility] HealthcareEvaluation note* Diagnosis Primary hypertension ([facility])- Primary Unspecified essential hypertension Type 2 diabetes mellitus with diabetic neuropathy, with long-term current use of insulin ([facility]) Gastroesophageal reflux disease, unspecified whether esophagitis present Vitamin D deficiency Type 2 diabetes mellitus with complication, without long-term current use of insulin ([facility]) Mixed hyperlipidemia ([facility]) Mixed hyperlipidemia Encounter for screening mammogram for malignant neoplasm of breast SANTO (obstructive sleep apnea) Obstructive sleep apnea (adult) (pediatric) COPD mixed type ([facility]) Anxiety and depression ([facility]) COVID Open wound Open wound(s) (multiple) of unspecified site(s), without mention of complication Morbid obesity with body mass index (BMI) of 40.0 to 49.9 ([facility]) COPD mixed type ([facility])- Primary Dysuria Atrial fibrillation, unspecified type ([facility]) Gastroesophageal reflux disease, unspecified whether esophagitis present Type 2 diabetes mellitus with complication, without long-term current use of insulin ([facility]) Obesity (BMI 30-39.9) Tobacco user Tobacco use disorder Anxiety and depression ([facility]) Dermatitis Contact dermatitis and other eczema, due to unspecified cause Type 2 diabetes mellitus with hyperglycemia ([facility])- Primary Primary hypertension ([facility]) Unspecified essential hypertension Edema of extremities Edema Type 2 diabetes mellitus without complication, with long-term current use of insulin ([facility]) Vitamin D deficiency Tobacco user Tobacco use disorder Dizziness and giddiness Atrial fibrillation, unspecified type ([facility]) COPD mixed type ([facility]) Open wound of buttock, unspecified laterality, initial encounter- Primary Type 2 diabetes mellitus without complication, with long-term current use of insulin ([facility]) Obesity (BMI 30-39.9) Dizziness and giddiness Viral upper respiratory tract infection- Primary Acute upper respiratory infections of unspecified site Tobacco user Tobacco use disorder Open wound Open wound(s) (multiple) of unspecified site(s), without mention of complication Obesity (BMI 30-39.9) Type 2 diabetes mellitus without complication, with long-term current use of insulin ([facility]) Encounter for wellness examination- Primary Osteoporosis, unspecified osteoporosis type, unspecified pathological fracture presence ([facility]) Open wound of buttock, unspecified laterality, initial encounter Type 2 diabetes mellitus without complication, with long-term current use of insulin ([facility]) Obesity (BMI 30-39.9) Tobacco user Tobacco use disorder Anxiety and depression ([facility]) Type 2 diabetes mellitus with diabetic neuropathy, with long-term current use of insulin ([facility]) COPD mixed type ([facility]) Diabetic polyneuropathy associated with type 2 diabetes mellitus ([facility]) Gastroesophageal reflux disease, unspecified whether esophagitis present Mixed hyperlipidemia ([facility]) Mixed hyperlipidemia Primary hypertension ([facility]) Unspecified essential hypertension Edema of extremities Edema Lung nodule, multiple Lymphadenopathy, generalized Vitamin D deficiency Oxygen dependent Dependence on supplemental oxygen Community acquired pneumonia, unspecified laterality COPD mixed type ([facility])- Primary SANTO (obstructive sleep apnea) Obstructive sleep apnea (adult) (pediatric) Lung nodule, multiple Community acquired pneumonia, unspecified laterality Primary hypertension ([facility]) Unspecified essential hypertension Atrial fibrillation, unspecified type ([facility]) Type 2 diabetes mellitus without complication, with long-term current use of insulin ([facility]) Tobacco user Tobacco use disorder Needs flu shot Need for prophylactic vaccination and inoculation against influenza Right wrist pain- Primary Pain in joint, forearm Obesity (BMI 30-39.9) 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 ([facility])- Primary COPD with acute exacerbation ([facility])- Primary Oxygen dependent Dependence on supplemental oxygen COPD mixed type ([facility]) Obesity (BMI 30-39.9) COVID- Primary Type 2 diabetes mellitus with diabetic polyneuropathy ([facility]) Type 2 diabetes mellitus with hyperglycemia ([facility]) 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 classified elsewhere ([facility]) [facility] (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 ([facility]) COPD mixed type ([facility] Paroxysmal atrial fibrillation ([facility] Atrial fibrillation Primary hypertension ([facility]) Unspecified essential hypertension Tobacco user Tobacco use disorder JORDAN (generalized anxiety disorder) ([facility])- Primary Generalized anxiety disorder SANTO (obstructive sleep apnea) Obstructive sleep apnea (adult) (pediatric) Type 2 diabetes mellitus with diabetic polyneuropathy, with long-term current use of insulin ([facility]) COPD mixed type ([facility]) Oxygen dependent Dependence on supplemental oxygen Paroxysmal atrial fibrillation ([facility]) Atrial fibrillation Primary hypertension ([facility]) Unspecified essential hypertension Gastroesophageal reflux disease, unspecified whether esophagitis present Obesity (BMI 30-39.9) Type 2 diabetes mellitus without complication, with long-term current use of insulin ([facility]) Anxiety and depression ([facility]) 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 ([facility]) Medical non-compliance Mild episode of recurrent major depressive disorder (HCC) ([facility]) Cigarette nicotine dependence without complication Encounter for screening mammogram for malignant neoplasm of breast Diabetic polyneuropathy associated with type 2 diabetes mellitus ([facility]) Mixed hyperlipidemia ([facility]) Mixed hyperlipidemia Edema of extremities Edema documented in this encounter [facility] HealthcareEvaluation note* Diagnosis Primary hypertension ([facility])- Primary Unspecified essential hypertension Type 2 diabetes mellitus with diabetic neuropathy, with long-term current use of insulin ([facility]) Gastroesophageal reflux disease, unspecified whether esophagitis present Vitamin D deficiency Type 2 diabetes mellitus with complication, without long-term current use of insulin ([facility]) Mixed hyperlipidemia ([facility]) Mixed hyperlipidemia Encounter for screening mammogram for malignant neoplasm of breast SANTO (obstructive sleep apnea) Obstructive sleep apnea (adult) (pediatric) COPD mixed type ([facility]) Anxiety and depression ([facility]) COVID Open wound Open wound(s) (multiple) of unspecified site(s), without mention of complication Morbid obesity with body mass index (BMI) of 40.0 to 49.9 ([facility]) COPD mixed type ([facility])- Primary Dysuria Atrial fibrillation, unspecified type ([facility]) Gastroesophageal reflux disease, unspecified whether esophagitis present Type 2 diabetes mellitus with complication, without long-term current use of insulin ([facility]) Obesity (BMI 30-39.9) Tobacco user Tobacco use disorder Anxiety and depression ([facility]) Dermatitis Contact dermatitis and other eczema, due to unspecified cause Type 2 diabetes mellitus with hyperglycemia ([facility])- Primary Primary hypertension ([facility]) Unspecified essential hypertension Edema of extremities Edema Type 2 diabetes mellitus without complication, with long-term current use of insulin ([facility]) Vitamin D deficiency Tobacco user Tobacco use disorder Dizziness and giddiness Atrial fibrillation, unspecified type ([facility]) COPD mixed type ([facility]) Open wound of buttock, unspecified laterality, initial encounter- Primary Type 2 diabetes mellitus without complication, with long-term current use of insulin ([facility]) Obesity (BMI 30-39.9) Dizziness and giddiness Viral upper respiratory tract infection- Primary Acute upper respiratory infections of unspecified site Tobacco user Tobacco use disorder Open wound Open wound(s) (multiple) of unspecified site(s), without mention of complication Obesity (BMI 30-39.9) Type 2 diabetes mellitus without complication, with long-term current use of insulin ([facility]) Encounter for wellness examination- Primary Osteoporosis, unspecified osteoporosis type, unspecified pathological fracture presence ([facility]) Open wound of buttock, unspecified laterality, initial encounter Type 2 diabetes mellitus without complication, with long-term current use of insulin ([facility]) Obesity (BMI 30-39.9) Tobacco user Tobacco use disorder Anxiety and depression ([facility]) Type 2 diabetes mellitus with diabetic neuropathy, with long-term current use of insulin ([facility]) COPD mixed type ([facility]) Diabetic polyneuropathy associated with type 2 diabetes mellitus ([facility]) Gastroesophageal reflux disease, unspecified whether esophagitis present Mixed hyperlipidemia ([facility]) Mixed hyperlipidemia Primary hypertension ([facility]) Unspecified essential hypertension Edema of extremities Edema Lung nodule, multiple Lymphadenopathy, generalized Vitamin D deficiency Oxygen dependent Dependence on supplemental oxygen Community acquired pneumonia, unspecified laterality COPD mixed type ([facility])- Primary SANTO (obstructive sleep apnea) Obstructive sleep apnea (adult) (pediatric) Lung nodule, multiple Community acquired pneumonia, unspecified laterality Primary hypertension ([facility]) Unspecified essential hypertension Atrial fibrillation, unspecified type ([facility]) Type 2 diabetes mellitus without complication, with long-term current use of insulin ([facility]) Tobacco user Tobacco use disorder Needs flu shot Need for prophylactic vaccination and inoculation against influenza Right wrist pain- Primary Pain in joint, forearm Obesity (BMI 30-39.9) 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 ([facility])- Primary COPD with acute exacerbation ([facility])- Primary Oxygen dependent Dependence on supplemental oxygen COPD mixed type ([facility]) Obesity (BMI 30-39.9) COVID- Primary Type 2 diabetes mellitus with diabetic polyneuropathy ([facility]) Type 2 diabetes mellitus with hyperglycemia ([facility]) 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 classified elsewhere ([facility]) [facility] (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 ([facility] COPD mixed type ([facility] Paroxysmal atrial fibrillation ([facility]) Atrial fibrillation Primary hypertension ([facility]) Unspecified essential hypertension Tobacco user Tobacco use disorder JORDAN (generalized anxiety disorder) ([facility])- Primary Generalized anxiety disorder SANTO (obstructive sleep apnea) Obstructive sleep apnea (adult) (pediatric) Type 2 diabetes mellitus with diabetic polyneuropathy, with long-term current use of insulin ([facility]) COPD mixed type ([facility]) Oxygen dependent Dependence on supplemental oxygen Paroxysmal atrial fibrillation ([facility]) Atrial fibrillation Primary hypertension ([facility]) Unspecified essential hypertension Gastroesophageal reflux disease, unspecified whether esophagitis present Obesity (BMI 30-39.9) Type 2 diabetes mellitus without complication, with long-term current use of insulin ([facility]) Anxiety and depression ([facility]) [facility] (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 ([facility]) Medical non-compliance Mild episode of recurrent major depressive disorder (HCC) ([facility]) Cigarette nicotine dependence without complication Encounter for screening mammogram for malignant neoplasm of breast Diabetic polyneuropathy associated with type 2 diabetes mellitus ([facility]) Mixed hyperlipidemia ([facility]) Mixed hyperlipidemia Edema of extremities Edema documented in this encounter [facility] HealthcareEvaluation note* Diagnosis Primary hypertension ([facility])- Primary Unspecified essential hypertension Type 2 diabetes mellitus with diabetic neuropathy, with long-term current use of insulin ([facility]) Gastroesophageal reflux disease, unspecified whether esophagitis present Vitamin D deficiency Type 2 diabetes mellitus with complication, without long-term current use of insulin ([facility]) Mixed hyperlipidemia ([facility]) Mixed hyperlipidemia Encounter for screening mammogram for malignant neoplasm of breast SANTO (obstructive sleep apnea) Obstructive sleep apnea (adult) (pediatric) COPD mixed type ([facility]) Anxiety and depression ([facility]) COVID Open wound Open wound(s) (multiple) of unspecified site(s), without mention of complication Morbid obesity with body mass index (BMI) of 40.0 to 49.9 ([facility]) COPD mixed type ([facility])- Primary Dysuria Atrial fibrillation, unspecified type ([facility]) Gastroesophageal reflux disease, unspecified whether esophagitis present Type 2 diabetes mellitus with complication, without long-term current use of insulin ([facility]) Obesity (BMI 30-39.9) Tobacco user Tobacco use disorder Anxiety and depression ([facility]) Dermatitis Contact dermatitis and other eczema, due to unspecified cause Type 2 diabetes mellitus with hyperglycemia ([facility])- Primary Primary hypertension ([facility]) Unspecified essential hypertension Edema of extremities Edema Type 2 diabetes mellitus without complication, with long-term current use of insulin ([facility]) Vitamin D deficiency Tobacco user Tobacco use disorder Dizziness and giddiness Atrial fibrillation, unspecified type ([facility]) COPD mixed type ([facility]) Open wound of buttock, unspecified laterality, initial encounter- Primary Type 2 diabetes mellitus without complication, with long-term current use of insulin ([facility]) Obesity (BMI 30-39.9) Dizziness and giddiness Viral upper respiratory tract infection- Primary Acute upper respiratory infections of unspecified site Tobacco user Tobacco use disorder Open wound Open wound(s) (multiple) of unspecified site(s), without mention of complication Obesity (BMI 30-39.9) Type 2 diabetes mellitus without complication, with long-term current use of insulin ([facility]) Encounter for wellness examination- Primary Osteoporosis, unspecified osteoporosis type, unspecified pathological fracture presence ([facility]) Open wound of buttock, unspecified laterality, initial encounter Type 2 diabetes mellitus without complication, with long-term current use of insulin ([facility]) Obesity (BMI 30-39.9) Tobacco user Tobacco use disorder Anxiety and depression ([facility]) Type 2 diabetes mellitus with diabetic neuropathy, with long-term current use of insulin ([facility] [place]) COPD mixed type ([facility]) Diabetic polyneuropathy associated with type 2 diabetes mellitus ([facility]) Gastroesophageal reflux disease, unspecified whether esophagitis present Mixed hyperlipidemia ([facility]) Mixed hyperlipidemia Primary hypertension ([facility]) Unspecified essential hypertension Edema of extremities Edema Lung nodule, multiple Lymphadenopathy, generalized Vitamin D deficiency Oxygen dependent Dependence on supplemental oxygen Community acquired pneumonia, unspecified laterality COPD mixed type ([facility])- Primary SANTO (obstructive sleep apnea) Obstructive sleep apnea (adult) (pediatric) Lung nodule, multiple Community acquired pneumonia, unspecified laterality Primary hypertension ([facility]) Unspecified essential hypertension Atrial fibrillation, unspecified type ([facility] [place]) Type 2 diabetes mellitus without complication, with long-term current use of insulin ([facility]) Tobacco user Tobacco use disorder Needs flu shot Need for prophylactic vaccination and inoculation against influenza Right wrist pain- Primary Pain in joint, forearm Obesity (BMI 30-39.9) 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 ([facility])- Primary COPD with acute exacerbation ([facility])- Primary Oxygen dependent Dependence on supplemental oxygen COPD mixed type ([facility]) Obesity (BMI 30-39.9) COVID- Primary Type 2 diabetes mellitus with diabetic polyneuropathy ([facility]) Type 2 diabetes mellitus with hyperglycemia ([facility]) 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 classified elsewhere ([facility]) 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 ([facility]) COPD mixed type ([facility]) Paroxysmal atrial fibrillation ([facility]) Atrial fibrillation Primary hypertension ([facility]) Unspecified essential hypertension Tobacco user Tobacco use disorder JORDAN (generalized anxiety disorder) ([facility])- Primary Generalized anxiety disorder SANTO (obstructive sleep apnea) Obstructive sleep apnea (adult) (pediatric) Type 2 diabetes mellitus with diabetic polyneuropathy, with long-term current use of insulin ([facility]) COPD mixed type ([facility]) Oxygen dependent Dependence on supplemental oxygen Paroxysmal atrial fibrillation ([facility]) Atrial fibrillation Primary hypertension ([facility]) Unspecified essential hypertension Gastroesophageal reflux disease, unspecified whether esophagitis present Obesity (BMI 30-39.9) Type 2 diabetes mellitus without complication, with long-term current use of insulin ([facility]) Anxiety and depression ([facility]) [facility] (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 ([facility]) Medical non-compliance Mild episode of recurrent major depressive disorder (HCC) ([facility]) Cigarette nicotine dependence without complication Encounter for screening mammogram for malignant neoplasm of breast Diabetic polyneuropathy associated with type 2 diabetes mellitus ([facility]) Mixed hyperlipidemia ([facility]) Mixed hyperlipidemia Edema of extremities Edema Type 2 diabetes mellitus with hyperglycemia, with long-term current use of insulin ([facility])- Primary Type 2 diabetes mellitus with hyperglycemia, with long-term current use of insulin ([facility]) documented in this encounter [facility] HealthcareEvaluation note* Diagnosis Primary hypertension ([facility])- Primary Unspecified essential hypertension Type 2 diabetes mellitus with diabetic neuropathy, with long-term current use of insulin ([facility]) Gastroesophageal reflux disease, unspecified whether esophagitis present Vitamin D deficiency Type 2 diabetes mellitus with complication, without long-term current use of insulin ([facility]) Mixed hyperlipidemia ([facility]) Mixed hyperlipidemia Encounter for screening mammogram for malignant neoplasm of breast SANTO (obstructive sleep apnea) Obstructive sleep apnea (adult) (pediatric) COPD mixed type ([facility]) Anxiety and depression ([facility]) COVID Open wound Open wound(s) (multiple) of unspecified site(s), without mention of complication Morbid obesity with body mass index (BMI) of 40.0 to 49.9 ([facility]) COPD mixed type ([facility])- Primary Dysuria Atrial fibrillation, unspecified type ([facility]) Gastroesophageal reflux disease, unspecified whether esophagitis present Type 2 diabetes mellitus with complication, without long-term current use of insulin ([facility]) Obesity (BMI 30-39.9) Tobacco user Tobacco use disorder Anxiety and depression ([facility]) Dermatitis Contact dermatitis and other eczema, due to unspecified cause Type 2 diabetes mellitus with hyperglycemia ([facility] [place])- Primary Primary hypertension ([facility] [place]) Unspecified essential hypertension Edema of extremities Edema Type 2 diabetes mellitus without complication, with long-term current use of insulin ([facility]) Vitamin D deficiency Tobacco user Tobacco use disorder Dizziness and giddiness Atrial fibrillation, unspecified type ([facility]) COPD mixed type ([facility]) Open wound of buttock, unspecified laterality, initial encounter- Primary Type 2 diabetes mellitus without complication, with long-term current use of insulin ([facility]) Obesity (BMI 30-39.9) Dizziness and giddiness Viral upper respiratory tract infection- Primary Acute upper respiratory infections of unspecified site Tobacco user Tobacco use disorder Open wound Open wound(s) (multiple) of unspecified site(s), without mention of complication Obesity (BMI 30-39.9) Type 2 diabetes mellitus without complication, with long-term current use of insulin ([facility]) Encounter for wellness examination- Primary Osteoporosis, unspecified osteoporosis type, unspecified pathological fracture presence ([facility]) Open wound of buttock, unspecified laterality, initial encounter Type 2 diabetes mellitus without complication, with long-term current use of insulin ([facility]) Obesity (BMI 30-39.9) Tobacco user Tobacco use disorder Anxiety and depression ([facility]) Type 2 diabetes mellitus with diabetic neuropathy, with long-term current use of insulin ([facility]) COPD mixed type ([facility]) Diabetic polyneuropathy associated with type 2 diabetes mellitus ([facility]) Gastroesophageal reflux disease, unspecified whether esophagitis present Mixed hyperlipidemia ([facility]) Mixed hyperlipidemia Primary hypertension ([facility]) Unspecified essential hypertension Edema of extremities Edema Lung nodule, multiple Lymphadenopathy, generalized Vitamin D deficiency Oxygen dependent Dependence on supplemental oxygen Community acquired pneumonia, unspecified laterality COPD mixed type ([facility])- Primary SANTO (obstructive sleep apnea) Obstructive sleep apnea (adult) (pediatric) Lung nodule, multiple Community acquired pneumonia, unspecified laterality Primary hypertension ([facility]) Unspecified essential hypertension Atrial fibrillation, unspecified type ([facility]) Type 2 diabetes mellitus without complication, with long-term current use of insulin ([facility]) Tobacco user Tobacco use disorder Needs flu shot Need for prophylactic vaccination and inoculation against influenza Right wrist pain- Primary Pain in joint, forearm Obesity (BMI 30-39.9) 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 ([facility])- Primary COPD with acute exacerbation ([facility])- Primary Oxygen dependent Dependence on supplemental oxygen COPD mixed type ([facility]) Obesity (BMI 30-39.9) COVID- Primary Type 2 diabetes mellitus with diabetic polyneuropathy ([facility]) Type 2 diabetes mellitus with hyperglycemia ([facility]) 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 classified elsewhere ([facility]) 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 ([facility] COPD mixed type ([facility] Paroxysmal atrial fibrillation ([facility]) Atrial fibrillation Primary hypertension ([facility]) Unspecified essential hypertension Tobacco user Tobacco use disorder JORDAN (generalized anxiety disorder) ([facility])- Primary Generalized anxiety disorder SANTO (obstructive sleep apnea) Obstructive sleep apnea (adult) (pediatric) Type 2 diabetes mellitus with diabetic polyneuropathy, with long-term current use of insulin ([facility]) COPD mixed type ([facility]) Oxygen dependent Dependence on supplemental oxygen Paroxysmal atrial fibrillation ([facility]) Atrial fibrillation Primary hypertension ([facility]) Unspecified essential hypertension Gastroesophageal reflux disease, unspecified whether esophagitis present Obesity (BMI 30-39.9) Type 2 diabetes mellitus without complication, with long-term current use of insulin ([facility]) Anxiety and depression ([facility]) 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 ([facility]) Medical non-compliance Mild episode of recurrent major depressive disorder (HCC) ([facility]) Cigarette nicotine dependence without complication Encounter for screening mammogram for malignant neoplasm of breast Diabetic polyneuropathy associated with type 2 diabetes mellitus ([facility]) Mixed hyperlipidemia ([facility]) Mixed hyperlipidemia Edema of extremities Edema Hypokalemia- Primary Hypopotassemia COPD mixed type ([facility]) Osteoporosis, unspecified osteoporosis type, unspecified pathological fracture presence ([facility]) Type 2 diabetes mellitus with hyperglycemia, with long-term current use of insulin ([facility]) documented in this encounter [facility] HealthcareEvaluation note* Diagnosis Primary hypertension ([facility])- Primary Unspecified essential hypertension Type 2 diabetes mellitus with diabetic neuropathy, with long-term current use of insulin ([facility]) Gastroesophageal reflux disease, unspecified whether esophagitis present Vitamin D deficiency Type 2 diabetes mellitus with complication, without long-term current use of insulin ([facility]) Mixed hyperlipidemia ([facility]) Mixed hyperlipidemia Encounter for screening mammogram for malignant neoplasm of breast SANTO (obstructive sleep apnea) Obstructive sleep apnea (adult) (pediatric) COPD mixed type ([facility]) Anxiety and depression ([facility]) COVID Open wound Open wound(s) (multiple) of unspecified site(s), without mention of complication Morbid obesity with body mass index (BMI) of 40.0 to 49.9 ([facility]) COPD mixed type ([facility])- Primary Dysuria Atrial fibrillation, unspecified type ([facility]) Gastroesophageal reflux disease, unspecified whether esophagitis present Type 2 diabetes mellitus with complication, without long-term current use of insulin ([facility]) Obesity (BMI 30-39.9) Tobacco user Tobacco use disorder Anxiety and depression ([facility]) Dermatitis Contact dermatitis and other eczema, due to unspecified cause Type 2 diabetes mellitus with hyperglycemia ([facility])- Primary Primary hypertension ([facility]) Unspecified essential hypertension Edema of extremities Edema Type 2 diabetes mellitus without complication, with long-term current use of insulin Vitamin D deficiency Tobacco user Tobacco use disorder Dizziness and giddiness Atrial fibrillation, unspecified type ([facility]) COPD mixed type ([facility]) Open wound of buttock, unspecified laterality, initial encounter- Primary Type 2 diabetes mellitus without complication, with long-term current use of insulin Obesity (BMI 30-39.9) Dizziness and giddiness Viral upper respiratory tract infection- Primary Acute upper respiratory infections of unspecified site Tobacco user Tobacco use disorder Open wound Open wound(s) (multiple) of unspecified site(s), without mention of complication Obesity (BMI 30-39.9) Type 2 diabetes mellitus without complication, with long-term current use of insulin Encounter for wellness examination- Primary Osteoporosis, unspecified osteoporosis type, unspecified pathological fracture presence ([facility]) Open wound of buttock, unspecified laterality, initial encounter Type 2 diabetes mellitus without complication, with long-term current use of insulin Obesity (BMI 30-39.9) Tobacco user Tobacco use disorder Anxiety and depression ([facility]) Type 2 diabetes mellitus with diabetic neuropathy, with long-term current use of insulin ([facility]) COPD mixed type ([facility]) Diabetic polyneuropathy associated with type 2 diabetes mellitus ([facility]) Gastroesophageal reflux disease, unspecified whether esophagitis present Mixed hyperlipidemia ([facility]) Mixed hyperlipidemia Primary hypertension ([facility]) Unspecified essential hypertension Edema of extremities Edema Lung nodule, multiple Lymphadenopathy, generalized Vitamin D deficiency Oxygen dependent Dependence on supplemental oxygen Community acquired pneumonia, unspecified laterality COPD mixed type ([facility])- Primary SANTO (obstructive sleep apnea) Obstructive sleep apnea (adult) (pediatric) Lung nodule, multiple Community acquired pneumonia, unspecified laterality Primary hypertension ([facility]) Unspecified essential hypertension Atrial fibrillation, unspecified type ([facility]) Type 2 diabetes mellitus without complication, with long-term current use of insulin Tobacco user Tobacco use disorder Needs flu shot Need for prophylactic vaccination and inoculation against influenza Right wrist pain- Primary Pain in joint, forearm Obesity (BMI 30-39.9) 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 ([facility])- Primary COPD with acute exacerbation ([facility])- Primary Oxygen dependent Dependence on supplemental oxygen COPD mixed type ([facility]) Obesity (BMI 30-39.9) COVID- Primary Type 2 diabetes mellitus with diabetic polyneuropathy ([facility]) Type 2 diabetes mellitus with hyperglycemia ([facility]) 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 classified elsewhere ([facility]) [facility] (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 ([facility] COPD mixed type ([facility] Paroxysmal atrial fibrillation ([facility]) Atrial fibrillation Primary hypertension ([facility]) Unspecified essential hypertension Tobacco user Tobacco use disorder JORDAN (generalized anxiety disorder) ([facility])- Primary Generalized anxiety disorder SANTO (obstructive sleep apnea) Obstructive sleep apnea (adult) (pediatric) Type 2 diabetes mellitus with diabetic polyneuropathy, with long-term current use of insulin ([facility]) COPD mixed type ([facility]) Oxygen dependent Dependence on supplemental oxygen Paroxysmal atrial fibrillation (CMS/HCC) Atrial fibrillation Primary hypertension ([facility]/HCC) Unspecified essential hypertension Gastroesophageal reflux disease, unspecified whether esophagitis present Obesity (BMI 30-39.9) Type 2 diabetes mellitus without complication, with long-term current use of insulin Anxiety and depression (CMS/HCC) [facility] (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 ([facility]) Medical non-compliance Mild episode of recurrent major depressive disorder (HCC) ([facility]) Cigarette nicotine dependence without complication Encounter for screening mammogram for malignant neoplasm of breast Diabetic polyneuropathy associated with type 2 diabetes mellitus ([facility]) Mixed hyperlipidemia ([facility]/H[facility]) Mixed hyperlipidemia Edema of extremities Edema COPD mixed type ([facility]) documented in this encounter [facility] HealthcareEvaluation [facility]* Diagnosis Primary hypertension ([facility])- Primary Unspecified essential hypertension Type 2 diabetes mellitus with diabetic neuropathy, with long-term current use of insulin ([facility]) Gastroesophageal reflux disease, unspecified whether esophagitis present Vitamin D deficiency Type 2 diabetes mellitus with complication, without long-term current use of insulin ([facility]) Mixed hyperlipidemia ([facility]) Mixed hyperlipidemia Encounter for screening mammogram for malignant neoplasm of breast SANTO (obstructive sleep apnea) Obstructive sleep apnea (adult) (pediatric) COPD mixed type ([facility]) Anxiety and depression ([facility]) COVID Open wound Open wound(s) (multiple) of unspecified site(s), without mention of complication Morbid obesity with body mass index (BMI) of 40.0 to 49.9 ([facility]) COPD mixed type ([facility]/HCC)- Primary Dysuria Atrial fibrillation, unspecified type ([facility]) Gastroesophageal reflux disease, unspecified whether esophagitis present Type 2 diabetes mellitus with complication, without long-term current use of insulin ([facility]) Obesity (BMI 30-39.9) Tobacco user Tobacco use disorder Anxiety and depression ([facility]) Dermatitis Contact dermatitis and other eczema, due to unspecified cause Type 2 diabetes mellitus with hyperglycemia ([facility])- Primary Primary hypertension ([facility]) Unspecified essential hypertension Edema of extremities Edema Type 2 diabetes mellitus without complication, with long-term current use of insulin Vitamin D deficiency Tobacco user Tobacco use disorder Dizziness and giddiness Atrial fibrillation, unspecified type (CMS/HCC) COPD mixed type (CMS/HCC) Open wound of buttock, unspecified laterality, initial encounter- Primary Type 2 diabetes mellitus without complication, with long-term current use of insulin Obesity (BMI 30-39.9) Dizziness and giddiness Viral upper respiratory tract infection- Primary Acute upper respiratory infections of unspecified site Tobacco user Tobacco use disorder Open wound Open wound(s) (multiple) of unspecified site(s), without mention of complication Obesity (BMI 30-39.9) Type 2 diabetes mellitus without complication, with long-term current use of insulin Encounter for wellness examination- Primary Osteoporosis, unspecified osteoporosis type, unspecified pathological fracture presence ([facility]/HCC) Open wound of buttock, unspecified laterality, initial encounter Type 2 diabetes mellitus without complication, with long-term current use of insulin Obesity (BMI 30-39.9) Tobacco user Tobacco use disorder Anxiety and depression ([facility]) Type 2 diabetes mellitus with diabetic neuropathy, with long-term current use of insulin ([facility]) COPD mixed type ([facility]) Diabetic polyneuropathy associated with type 2 diabetes mellitus ([facility]) Gastroesophageal reflux disease, unspecified whether esophagitis present Mixed hyperlipidemia ([facility]) Mixed hyperlipidemia Primary hypertension ([facility]) Unspecified essential hypertension Edema of extremities Edema Lung nodule, multiple Lymphadenopathy, generalized Vitamin D deficiency Oxygen dependent Dependence on supplemental oxygen Community acquired pneumonia, unspecified laterality COPD mixed type ([facility]/HCC)- Primary SANTO (obstructive sleep apnea) Obstructive sleep apnea (adult) (pediatric) Lung nodule, multiple Community acquired pneumonia, unspecified laterality Primary hypertension ([facility]) Unspecified essential hypertension Atrial fibrillation, unspecified type ([facility]) Type 2 diabetes mellitus without complication, with long-term current use of insulin Tobacco user Tobacco use disorder Needs flu shot Need for prophylactic vaccination and inoculation against influenza Right wrist pain- Primary Pain in joint, forearm Obesity (BMI 30-39.9) 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 ([facility])- Primary COPD with acute exacerbation ([facility])- Primary Oxygen dependent Dependence on supplemental oxygen COPD mixed type (CMS/HCC) Obesity (BMI 30-39.9) COVID- Primary Type 2 diabetes mellitus with diabetic polyneuropathy ([facility]) Type 2 diabetes mellitus with hyperglycemia ([facility]) 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 classified elsewhere ([facility]) 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 ([facility]) COPD mixed type ([facility]/HCC) Paroxysmal atrial fibrillation ([facility]) Atrial fibrillation Primary hypertension ([facility]) Unspecified essential hypertension Tobacco user Tobacco use disorder JORDAN (generalized anxiety disorder) ([facility])- Primary Generalized anxiety disorder SANTO (obstructive sleep apnea) Obstructive sleep apnea (adult) (pediatric) Type 2 diabetes mellitus with diabetic polyneuropathy, with long-term current use of insulin ([facility]) COPD mixed type ([facility]) Oxygen dependent Dependence on supplemental oxygen Paroxysmal atrial fibrillation ([facility]) Atrial fibrillation Primary hypertension ([facility]) Unspecified essential hypertension Gastroesophageal reflux disease, unspecified whether esophagitis present Obesity (BMI 30-39.9) Type 2 diabetes mellitus without complication, with long-term current use of insulin Anxiety and depression ([facility]) 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 ([facility]) Medical non-compliance Mild episode of recurrent major depressive disorder (HCC) ([facility]) Cigarette nicotine dependence without complication Encounter for screening mammogram for malignant neoplasm of breast Diabetic polyneuropathy associated with type 2 diabetes mellitus ([facility]) Mixed hyperlipidemia ([facility]) Mixed hyperlipidemia Edema of extremities Edema JORDAN (generalized anxiety disorder) ([facility]) Generalized anxiety disorder Mild episode of recurrent major depressive disorder (HCC) ([facility]) documented in this encounter [facility] HealthcareEvaluation note* Diagnosis Primary hypertension ([facility])- Primary Unspecified essential hypertension Type 2 diabetes mellitus with diabetic neuropathy, with long-term current use of insulin ([facility]) Gastroesophageal reflux disease, unspecified whether esophagitis present Vitamin D deficiency Type 2 diabetes mellitus with complication, without long-term current use of insulin ([facility]) Mixed hyperlipidemia ([facility]) Mixed hyperlipidemia Encounter for screening mammogram for malignant neoplasm of breast SANTO (obstructive sleep apnea) Obstructive sleep apnea (adult) (pediatric) COPD mixed type ([facility]) Anxiety and depression ([facility]) COVID Open wound Open wound(s) (multiple) of unspecified site(s), without mention of complication Morbid obesity with body mass index (BMI) of 40.0 to 49.9 ([facility]) COPD mixed type ([facility])- Primary Dysuria Atrial fibrillation, unspecified type ([facility]) Gastroesophageal reflux disease, unspecified whether esophagitis present Type 2 diabetes mellitus with complication, without long-term current use of insulin ([facility]) Obesity (BMI 30-39.9) Tobacco user Tobacco use disorder Anxiety and depression ([facility]) Dermatitis Contact dermatitis and other eczema, due to unspecified cause Type 2 diabetes mellitus with hyperglycemia ([facility])- Primary Primary hypertension ([facility]) Unspecified essential hypertension Edema of extremities Edema Type 2 diabetes mellitus without complication, with long-term current use of insulin Vitamin D deficiency Tobacco user Tobacco use disorder Dizziness and giddiness Atrial fibrillation, unspecified type ([facility]) COPD mixed type ([facility]) Open wound of buttock, unspecified laterality, initial encounter- Primary Type 2 diabetes mellitus without complication, with long-term current use of insulin Obesity (BMI 30-39.9) Dizziness and giddiness Viral upper respiratory tract infection- Primary Acute upper respiratory infections of unspecified site Tobacco user Tobacco use disorder Open wound Open wound(s) (multiple) of unspecified site(s), without mention of complication Obesity (BMI 30-39.9) Type 2 diabetes mellitus without complication, with long-term current use of insulin Encounter for wellness examination- Primary Osteoporosis, unspecified osteoporosis type, unspecified pathological fracture presence ([facility]) Open wound of buttock, unspecified laterality, initial encounter Type 2 diabetes mellitus without complication, with long-term current use of insulin Obesity (BMI 30-39.9) Tobacco user Tobacco use disorder Anxiety and depression ([facility]) Type 2 diabetes mellitus with diabetic neuropathy, with long-term current use of insulin ([facility]) COPD mixed type ([facility] [facility]) Diabetic polyneuropathy associated with type 2 diabetes mellitus ([facility]) Gastroesophageal reflux disease, unspecified whether esophagitis present Mixed hyperlipidemia ([facility]) Mixed hyperlipidemia Primary hypertension ([facility]) Unspecified essential hypertension Edema of extremities Edema Lung nodule, multiple Lymphadenopathy, generalized Vitamin D deficiency Oxygen dependent Dependence on supplemental oxygen Community acquired pneumonia, unspecified laterality COPD mixed type ([facility])- Primary SANTO (obstructive sleep apnea) Obstructive sleep apnea (adult) (pediatric) Lung nodule, multiple Community acquired pneumonia, unspecified laterality Primary hypertension ([facility]) Unspecified essential hypertension Atrial fibrillation, unspecified type ([facility]) Type 2 diabetes mellitus without complication, with long-term current use of insulin Tobacco user Tobacco use disorder Needs flu shot Need for prophylactic vaccination and inoculation against influenza Right wrist pain- Primary Pain in joint, forearm Obesity (BMI 30-39.9) 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 ([facility])- Primary COPD with acute exacerbation ([facility])- Primary Oxygen dependent Dependence on supplemental oxygen COPD mixed type ([facility]) Obesity (BMI 30-39.9) COVID- Primary Type 2 diabetes mellitus with diabetic polyneuropathy ([facility]) Type 2 diabetes mellitus with hyperglycemia ([facility]) 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 classified elsewhere ([facility]) 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 ([facility] COPD mixed type ([facility]) Paroxysmal atrial fibrillation ([facility]) Atrial fibrillation Primary hypertension ([facility]) Unspecified essential hypertension Tobacco user Tobacco use disorder JORDAN (generalized anxiety disorder) ([facility])- Primary Generalized anxiety disorder SANTO (obstructive sleep apnea) Obstructive sleep apnea (adult) (pediatric) Type 2 diabetes mellitus with diabetic polyneuropathy, with long-term current use of insulin ([facility]) COPD mixed type ([facility]) Oxygen dependent Dependence on supplemental oxygen Paroxysmal atrial fibrillation ([facility]) Atrial fibrillation Primary hypertension ([facility]) Unspecified essential hypertension Gastroesophageal reflux disease, unspecified whether esophagitis present Obesity (BMI 30-39.9) Type 2 diabetes mellitus without complication, with long-term current use of insulin Anxiety and depression ([facility]) 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 ([facility]) Medical non-compliance Mild episode of recurrent major depressive disorder (HCC) ([facility] [place]) Cigarette nicotine dependence without complication Encounter for screening mammogram for malignant neoplasm of breast Diabetic polyneuropathy associated with type 2 diabetes mellitus ([facility]) Mixed hyperlipidemia ([facility]) Mixed hyperlipidemia Edema of extremities Edema Abscess of left groin- Primary documented in this encounter [facility] Diagnosis Primary hypertension ([facility])- Primary Unspecified essential hypertension Type 2 diabetes mellitus with diabetic neuropathy, with long-term current use of insulin ([facility]) Gastroesophageal reflux disease, unspecified whether esophagitis present Vitamin D deficiency Type 2 diabetes mellitus with complication, without long-term current use of insulin ([facility]) Mixed hyperlipidemia ([facility]) Mixed hyperlipidemia Encounter for screening mammogram for malignant neoplasm of breast SANTO (obstructive sleep apnea) Obstructive sleep apnea (adult) (pediatric) COPD mixed type ([facility]) Anxiety and depression ([facility]) COVID Open wound Open wound(s) (multiple) of unspecified site(s), without mention of complication Morbid obesity with body mass index (BMI) of 40.0 to 49.9 ([facility] [place]) COPD mixed type ([facility])- Primary Dysuria Atrial fibrillation, unspecified type ([facility]) Gastroesophageal reflux disease, unspecified whether esophagitis present Type 2 diabetes mellitus with complication, without long-term current use of insulin ([facility]) Obesity (BMI 30-39.9) Tobacco user Tobacco use disorder Anxiety and depression ([facility]) Dermatitis Contact dermatitis and other eczema, due to unspecified cause Type 2 diabetes mellitus with hyperglycemia ([facility] [place])- Primary Primary hypertension ([facility]) Unspecified essential hypertension Edema of extremities Edema Type 2 diabetes mellitus without complication, with long-term current use of insulin Vitamin D deficiency Tobacco user Tobacco use disorder Dizziness and giddiness Atrial fibrillation, unspecified type ([facility]) COPD mixed type ([facility]) Open wound of buttock, unspecified laterality, initial encounter- Primary Type 2 diabetes mellitus without complication, with long-term current use of insulin Obesity (BMI 30-39.9) Dizziness and giddiness Viral upper respiratory tract infection- Primary Acute upper respiratory infections of unspecified site Tobacco user Tobacco use disorder Open wound Open wound(s) (multiple) of unspecified site(s), without mention of complication Obesity (BMI 30-39.9) Type 2 diabetes mellitus without complication, with long-term current use of insulin Encounter for wellness examination- Primary Osteoporosis, unspecified osteoporosis type, unspecified pathological fracture presence ([facility]) Open wound of buttock, unspecified laterality, initial encounter Type 2 diabetes mellitus without complication, with long-term current use of insulin Obesity (BMI 30-39.9) Tobacco user Tobacco use disorder Anxiety and depression ([facility]) Type 2 diabetes mellitus with diabetic neuropathy, with long-term current use of insulin ([facility]) COPD mixed type ([facility]) Diabetic polyneuropathy associated with type 2 diabetes mellitus ([facility]) Gastroesophageal reflux disease, unspecified whether esophagitis present Mixed hyperlipidemia ([facility]) Mixed hyperlipidemia Primary hypertension ([facility]) Unspecified essential hypertension Edema of extremities Edema Lung nodule, multiple Lymphadenopathy, generalized Vitamin D deficiency Oxygen dependent Dependence on supplemental oxygen Community acquired pneumonia, unspecified laterality COPD mixed type ([facility])- Primary SANTO (obstructive sleep apnea) Obstructive sleep apnea (adult) (pediatric) Lung nodule, multiple Community acquired pneumonia, unspecified laterality Primary hypertension ([facility]) Unspecified essential hypertension Atrial fibrillation, unspecified type ([facility]/HCC) Type 2 diabetes mellitus without complication, with long-term current use of insulin Tobacco user Tobacco use disorder Needs flu shot Need for prophylactic vaccination and inoculation against influenza Right wrist pain- Primary Pain in joint, forearm Obesity (BMI 30-39.9) 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 ([facility])- Primary COPD with acute exacerbation ([facility])- Primary Oxygen dependent Dependence on supplemental oxygen COPD mixed type ([facility]/HCC) Obesity (BMI 30-39.9) COVID- Primary Type 2 diabetes mellitus with diabetic polyneuropathy ([facility]) Type 2 diabetes mellitus with hyperglycemia ([facility]) 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 classified elsewhere ([facility]) 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 ([facility]) COPD mixed type ([facility]/HCC) Paroxysmal atrial fibrillation ([facility]) Atrial fibrillation Primary hypertension ([facility]) Unspecified essential hypertension Tobacco user Tobacco use disorder JORDAN (generalized anxiety disorder) ([facility])- Primary Generalized anxiety disorder SANTO (obstructive sleep apnea) Obstructive sleep apnea (adult) (pediatric) Type 2 diabetes mellitus with diabetic polyneuropathy, with long-term current use of insulin ([facility]) COPD mixed type ([facility]) Oxygen dependent Dependence on supplemental oxygen Paroxysmal atrial fibrillation ([facility]) Atrial fibrillation Primary hypertension ([facility]) Unspecified essential hypertension Gastroesophageal reflux disease, unspecified whether esophagitis present Obesity (BMI 30-39.9) Type 2 diabetes mellitus without complication, with long-term current use of insulin Anxiety and depression ([facility]) [facility] (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 ([facility]) Medical non-compliance Mild episode of recurrent major depressive disorder (HCC) ([facility]) Cigarette nicotine dependence without complication Encounter for screening mammogram for malignant neoplasm of breast Diabetic polyneuropathy associated with type 2 diabetes mellitus ([facility]) Mixed hyperlipidemia ([facility]) Mixed hyperlipidemia Edema of extremities Edema Abscess of left groin documented in this encounter [facility]* Diagnosis Primary hypertension ([facility]/HCC)- Primary Unspecified essential hypertension Type 2 diabetes mellitus with diabetic neuropathy, with long-term current use of insulin ([facility]) Gastroesophageal reflux disease, unspecified whether esophagitis present Vitamin D deficiency Type 2 diabetes mellitus with complication, without long-term current use of insulin ([facility]) Mixed hyperlipidemia ([facility]) Mixed hyperlipidemia Encounter for screening mammogram for malignant neoplasm of breast SANTO (obstructive sleep apnea) Obstructive sleep apnea (adult) (pediatric) COPD mixed type ([facility]) Anxiety and depression ([facility]) COVID Open wound Open wound(s) (multiple) of unspecified site(s), without mention of complication Morbid obesity with body mass index (BMI) of 40.0 to 49.9 ([facility]) COPD mixed type ([facility])- Primary Dysuria Atrial fibrillation, unspecified type ([facility]) Gastroesophageal reflux disease, unspecified whether esophagitis present Type 2 diabetes mellitus with complication, without long-term current use of insulin ([facility]) Obesity (BMI 30-39.9) Tobacco user Tobacco use disorder Anxiety and depression ([facility]) Dermatitis Contact dermatitis and other eczema, due to unspecified cause Type 2 diabetes mellitus with hyperglycemia ([facility] [place])- Primary Primary hypertension ([facility]) Unspecified essential hypertension Edema of extremities Edema Type 2 diabetes mellitus without complication, with long-term current use of insulin Vitamin D deficiency Tobacco user Tobacco use disorder Dizziness and giddiness Atrial fibrillation, unspecified type ([facility]) COPD mixed type ([facility]) Open wound of buttock, unspecified laterality, initial encounter- Primary Type 2 diabetes mellitus without complication, with long-term current use of insulin Obesity (BMI 30-39.9) Dizziness and giddiness Viral upper respiratory tract infection- Primary Acute upper respiratory infections of unspecified site Tobacco user Tobacco use disorder Open wound Open wound(s) (multiple) of unspecified site(s), without mention of complication Obesity (BMI 30-39.9) Type 2 diabetes mellitus without complication, with long-term current use of insulin Encounter for wellness examination- Primary Osteoporosis, unspecified osteoporosis type, unspecified pathological fracture presence ([facility]) Open wound of buttock, unspecified laterality, initial encounter Type 2 diabetes mellitus without complication, with long-term current use of insulin Obesity (BMI 30-39.9) Tobacco user Tobacco use disorder Anxiety and depression ([facility]) Type 2 diabetes mellitus with diabetic neuropathy, with long-term current use of insulin ([facility]) COPD mixed type ([facility]) Diabetic polyneuropathy associated with type 2 diabetes mellitus ([facility]) Gastroesophageal reflux disease, unspecified whether esophagitis present Mixed hyperlipidemia ([facility]) Mixed hyperlipidemia Primary hypertension ([facility]) Unspecified essential hypertension Edema of extremities Edema [...] complication, with long-term current use of insulin Tobacco user Tobacco use disorder Needs flu shot Need for prophylactic vaccination and inoculation against influenza Right wrist pain- Primary Pain in joint, forearm Obesity (BMI 30-39.9) 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 (CMS/HCC)- Primary COPD with acute exacerbation (CMS/HCC)- Primary Oxygen dependent Dependence on supplemental oxygen COPD mixed type (CMS/HCC) Obesity (BMI 30-39.9) COVID- Primary Type 2 diabetes mellitus with diabetic polyneuropathy ([facility]) Type 2 diabetes mellitus with hyperglycemia ([facility]) 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 classified elsewhere ([facility]) 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 ([facility]) COPD mixed type (CMS/HCC) Paroxysmal atrial fibrillation (CMS/HCC) Atrial fibrillation Primary hypertension ([facility]/HCC) Unspecified essential hypertension Tobacco user Tobacco use disorder JORDAN (generalized anxiety disorder) ([facility])- Primary Generalized anxiety disorder SANTO (obstructive sleep apnea) Obstructive sleep apnea (adult) (pediatric) Type 2 diabetes mellitus with diabetic polyneuropathy, with long-term current use of insulin ([facility]) COPD mixed type (CMS/HCC) Oxygen dependent Dependence on supplemental oxygen Paroxysmal atrial fibrillation (CMS/HCC) Atrial fibrillation Primary hypertension ([facility]/HCC) Unspecified essential hypertension Gastroesophageal reflux disease, unspecified whether esophagitis present Obesity (BMI 30-39.9) Type 2 diabetes mellitus without complication, with long-term current use of insulin Anxiety and depression (CMS/HCC) [facility] (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 ([facility]) Medical non-compliance Mild episode of recurrent major depressive disorder (HCC) ([facility]) Cigarette nicotine dependence without complication Encounter for screening mammogram for malignant neoplasm of breast Diabetic polyneuropathy associated with type 2 diabetes mellitus (CMS/HCC) Mixed hyperlipidemia (CMS/HCC) Mixed hyperlipidemia Edema of extremities Edema Abscess of left groin- Primary Primary hypertension (CMS/HCC) Unspecified essential hypertension Type 2 diabetes mellitus without complication, with long-term current use of insulin Cigarette nicotine dependence without complication Encounter for screening mammogram for malignant neoplasm of breast Gill rash of groin Mild episode of recurrent major depressive disorder (HCC) ([facility]) documented in this encounter [facility]* Diagnosis Primary hypertension ([facility])- Primary Unspecified essential hypertension Type 2 diabetes mellitus with diabetic neuropathy, with long-term current use of insulin ([facility]) Gastroesophageal reflux disease, unspecified whether esophagitis present Vitamin D deficiency Type 2 diabetes mellitus with complication, without long-term current use of insulin ([facility]) Mixed hyperlipidemia ([facility]) Mixed hyperlipidemia Encounter for screening mammogram for malignant neoplasm of breast SANTO (obstructive sleep apnea) Obstructive sleep apnea (adult) (pediatric) COPD mixed type ([facility]) Anxiety and depression ([facility]) COVID Open wound Open wound(s) (multiple) of unspecified site(s), without mention of complication Morbid obesity with body mass index (BMI) of 40.0 to 49.9 ([facility]) COPD mixed type ([facility]/HCC)- Primary Dysuria Atrial fibrillation, unspecified type ([facility]) Gastroesophageal reflux disease, unspecified whether esophagitis present Type 2 diabetes mellitus with complication, without long-term current use of insulin ([facility]) Obesity (BMI 30-39.9) Tobacco user Tobacco use disorder Anxiety and depression ([facility]) Dermatitis Contact dermatitis and other eczema, due to unspecified cause Type 2 diabetes mellitus with hyperglycemia ([facility])- Primary Primary hypertension ([facility]) Unspecified essential hypertension Edema of extremities Edema Type 2 diabetes mellitus without complication, with long-term current use of insulin Vitamin D deficiency Tobacco user Tobacco use disorder Dizziness and giddiness Atrial fibrillation, unspecified type ([facility]/HCC) COPD mixed type ([facility]) Open wound of buttock, unspecified laterality, initial encounter- Primary Type 2 diabetes mellitus without complication, with long-term current use of insulin Obesity (BMI 30-39.9) Dizziness and giddiness Viral upper respiratory tract infection- Primary Acute upper respiratory infections of unspecified site Tobacco user Tobacco use disorder Open wound Open wound(s) (multiple) of unspecified site(s), without mention of complication Obesity (BMI 30-39.9) Type 2 diabetes mellitus without complication, with long-term current use of insulin Encounter for wellness examination- Primary Osteoporosis, unspecified osteoporosis type, unspecified pathological fracture presence ([facility]) Open wound of buttock, unspecified laterality, initial encounter Type 2 diabetes mellitus without complication, with long-term current use of insulin Obesity (BMI 30-39.9) Tobacco user Tobacco use disorder Anxiety and depression ([facility]) Type 2 diabetes mellitus with diabetic neuropathy, with long-term current use of insulin ([facility]) COPD mixed type ([facility]) Diabetic polyneuropathy associated with type 2 diabetes mellitus ([facility]) Gastroesophageal reflux disease, unspecified whether esophagitis present Mixed hyperlipidemia ([facility]) Mixed hyperlipidemia Primary hypertension ([facility]) Unspecified essential hypertension Edema of extremities Edema Lung nodule, multiple Lymphadenopathy, generalized Vitamin D deficiency Oxygen dependent Dependence on supplemental oxygen Community acquired pneumonia, unspecified laterality COPD mixed type ([facility])- Primary SANTO (obstructive sleep apnea) Obstructive sleep apnea (adult) (pediatric) Lung nodule, multiple Community acquired pneumonia, unspecified laterality Primary hypertension ([facility]) Unspecified essential hypertension Atrial fibrillation, unspecified type ([facility]) Type 2 diabetes mellitus without complication, with long-term current use of insulin Tobacco user Tobacco use disorder Needs flu shot Need for prophylactic vaccination and inoculation against influenza Right wrist pain- Primary Pain in joint, forearm Obesity (BMI 30-39.9) 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 ([facility])- Primary COPD with acute exacerbation ([facility])- Primary Oxygen dependent Dependence on supplemental oxygen COPD mixed type ([facility]) Obesity (BMI 30-39.9) COVID- Primary Type 2 diabetes mellitus with diabetic polyneuropathy ([facility]) Type 2 diabetes mellitus with hyperglycemia ([facility]) 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 classified elsewhere ([facility]) [facility] (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 ([facility]) COPD mixed type ([facility] Paroxysmal atrial fibrillation ([facility]) Atrial fibrillation Primary hypertension ([facility]) Unspecified essential hypertension Tobacco user Tobacco use disorder JORDAN (generalized anxiety disorder) ([facility])- Primary Generalized anxiety disorder SANTO (obstructive sleep apnea) Obstructive sleep apnea (adult) (pediatric) Type 2 diabetes mellitus with diabetic polyneuropathy, with long-term current use of insulin ([facility]) COPD mixed type ([facility]) Oxygen dependent Dependence on supplemental oxygen Paroxysmal atrial fibrillation ([facility]) Atrial fibrillation Primary hypertension ([facility]) Unspecified essential hypertension Gastroesophageal reflux disease, unspecified whether esophagitis present Obesity (BMI 30-39.9) Type 2 diabetes mellitus without complication, with long-term current use of insulin Anxiety and depression ([facility]) [facility] (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 ([facility]) Medical non-compliance Mild episode of recurrent major depressive disorder (HCC) ([facility]) Cigarette nicotine dependence without complication Encounter for screening mammogram for malignant neoplasm of breast Diabetic polyneuropathy associated with type 2 diabetes mellitus ([facility]) Mixed hyperlipidemia ([facility]) Mixed hyperlipidemia Edema of extremities Edema Abscess of left groin- Primary Primary hypertension ([facility]) Unspecified essential hypertension Type 2 diabetes mellitus without complication, with long-term current use of insulin Cigarette nicotine dependence without complication Encounter for screening mammogram for malignant neoplasm of breast Gill rash of groin Mild episode of recurrent major depressive disorder (HCC) ([facility]) Type 2 diabetes mellitus without complication, with long-term current use of insulin- Primary Obesity (BMI 30-39.9) Abscess of left groin documented in this encounter [facility] HealthcareEvaluation note* Diagnosis Primary hypertension- Primary Unspecified essential hypertension Type 2 diabetes mellitus with diabetic neuropathy, with long-term current use of insulin (HCC) Gastroesophageal reflux disease, unspecified whether esophagitis present Vitamin D deficiency Type 2 diabetes mellitus with complication, without long-term current use of insulin ([facility]) Mixed hyperlipidemia Mixed hyperlipidemia Encounter for screening mammogram for malignant neoplasm of breast SANTO (obstructive sleep apnea) Obstructive sleep apnea (adult) (pediatric) COPD mixed type (HCC) Anxiety and depression COVID Open wound Open wound(s) (multiple) of unspecified site(s), without mention of complication Morbid obesity with body mass index (BMI) of 40.0 to 49.9 ([facility]) COPD mixed type (HCC)- Primary Dysuria Atrial fibrillation, unspecified type (HCC) Gastroesophageal reflux disease, unspecified whether esophagitis present Type 2 diabetes mellitus with complication, without long-term current use of insulin ([facility]) Obesity (BMI 30-39.9) Tobacco user Tobacco use disorder Anxiety and depression Dermatitis Contact dermatitis and other eczema, due to unspecified cause Type 2 diabetes mellitus with hyperglycemia ([facility])- Primary Primary hypertension Unspecified essential hypertension Edema of extremities Edema Type 2 diabetes mellitus without complication, with long-term current use of insulin ([facility]) Vitamin D deficiency Tobacco user Tobacco use disorder Dizziness and giddiness Atrial fibrillation, unspecified type (HCC) COPD mixed type (HCC) Open wound of buttock, unspecified laterality, initial encounter- Primary Type 2 diabetes mellitus without complication, with long-term current use of insulin ([facility]) Obesity (BMI 30-39.9) Dizziness and giddiness Viral upper respiratory tract infection- Primary Acute upper respiratory infections of unspecified site Tobacco user Tobacco use disorder Open wound Open wound(s) (multiple) of unspecified site(s), without mention of complication Obesity (BMI 30-39.9) Type 2 diabetes mellitus without complication, with long-term current use of insulin ([facility]) Encounter for wellness examination- Primary Osteoporosis, unspecified osteoporosis type, unspecified pathological fracture presence Open wound of buttock, unspecified laterality, initial encounter Type 2 diabetes mellitus without complication, with long-term current use of insulin ([facility]) Obesity (BMI 30-39.9) Tobacco user Tobacco use disorder Anxiety and depression Type 2 diabetes mellitus with diabetic neuropathy, with long-term current use of insulin ([facility]) COPD mixed type (HCC) Diabetic polyneuropathy associated with type 2 diabetes mellitus ([facility]) Gastroesophageal reflux disease, unspecified whether esophagitis present Mixed hyperlipidemia Mixed hyperlipidemia Primary hypertension Unspecified essential hypertension Edema of extremities Edema Lung nodule, multiple Lymphadenopathy, generalized Vitamin D deficiency Oxygen dependent Dependence on supplemental oxygen Community acquired pneumonia, unspecified laterality COPD mixed type (HCC)- Primary SANTO (obstructive sleep apnea) Obstructive sleep apnea (adult) (pediatric) Lung nodule, multiple Community acquired pneumonia, unspecified laterality Primary hypertension Unspecified essential hypertension Atrial fibrillation, unspecified type (HCC) Type 2 diabetes mellitus without complication, with long-term current use of insulin ([facility]) Tobacco user Tobacco use disorder Needs flu shot Need for prophylactic vaccination and inoculation against influenza Right wrist pain- Primary Pain in joint, forearm Obesity (BMI 30-39.9) 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 ([facility])- Primary COPD with acute exacerbation (HCC)- Primary Oxygen dependent Dependence on supplemental oxygen COPD mixed type (HCC) Obesity (BMI 30-39.9) COVID- Primary Type 2 diabetes mellitus with diabetic polyneuropathy (HCC) Type 2 diabetes mellitus with hyperglycemia ([facility]) 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 classified elsewhere ([facility]) [facility] (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 (HCC) COPD mixed type (HCC) Paroxysmal atrial fibrillation (HCC) Atrial fibrillation Primary hypertension Unspecified essential hypertension Tobacco user Tobacco use disorder JORDAN (generalized anxiety disorder)- Primary Generalized anxiety disorder SANTO (obstructive sleep apnea) Obstructive sleep apnea (adult) (pediatric) Type 2 diabetes mellitus with diabetic polyneuropathy, with long-term current use of insulin ([facility]) COPD mixed type ([facility]) Oxygen dependent Dependence on supplemental oxygen Paroxysmal atrial fibrillation (HCC) Atrial fibrillation Primary hypertension Unspecified essential hypertension Gastroesophageal reflux disease, unspecified whether esophagitis present Obesity (BMI 30-39.9) Type 2 diabetes mellitus without complication, with long-term current use of insulin ([facility]) Anxiety and depression [facility] (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 ([facility]) Medical non-compliance Mild episode of recurrent major depressive disorder Cigarette nicotine dependence without complication Encounter for screening mammogram for malignant neoplasm of breast Diabetic polyneuropathy associated with type 2 diabetes mellitus ([facility]) Mixed hyperlipidemia Mixed hyperlipidemia Edema of extremities Edema Abscess of left groin- Primary Primary hypertension Unspecified essential hypertension Type 2 diabetes mellitus without complication, with long-term current use of insulin ([facility]) Cigarette nicotine dependence without complication Encounter for screening mammogram for malignant neoplasm of breast Gill rash of groin Mild episode of recurrent major depressive disorder COPD mixed type ([facility]) documented in this encounter [facility] HealthcareEvaluation note* Diagnosis Primary hypertension- Primary Unspecified essential hypertension Type 2 diabetes mellitus with diabetic neuropathy, with long-term current use of insulin ([facility]) Gastroesophageal reflux disease, unspecified whether esophagitis present Vitamin D deficiency Type 2 diabetes mellitus with complication, without long-term current use of insulin ([facility]) Mixed hyperlipidemia Mixed hyperlipidemia Encounter for screening mammogram for malignant neoplasm of breast SANTO (obstructive sleep apnea) Obstructive sleep apnea (adult) (pediatric) COPD mixed type ([facility]) Anxiety and depression COVID Open wound Open wound(s) (multiple) of unspecified site(s), without mention of complication Morbid obesity with body mass index (BMI) of 40.0 to 49.9 ([facility]) COPD mixed type (HCC)- Primary Dysuria Atrial fibrillation, unspecified type ([facility]) Gastroesophageal reflux disease, unspecified whether esophagitis present Type 2 diabetes mellitus with complication, without long-term current use of insulin ([facility]) Obesity (BMI 30-39.9) Tobacco user Tobacco use disorder Anxiety and depression Dermatitis Contact dermatitis and other eczema, due to unspecified cause Type 2 diabetes mellitus with hyperglycemia ([facility])- Primary Primary hypertension Unspecified essential hypertension Edema of extremities Edema Type 2 diabetes mellitus without complication, with long-term current use of insulin (HCC) Vitamin D deficiency Tobacco user Tobacco use disorder Dizziness and giddiness Atrial fibrillation, unspecified type (HCC) COPD mixed type (HCC) Open wound of buttock, unspecified laterality, initial encounter- Primary Type 2 diabetes mellitus without complication, with long-term current use of insulin (HCC) Obesity (BMI 30-39.9) Dizziness and giddiness Viral upper respiratory tract infection- Primary Acute upper respiratory infections of unspecified site Tobacco user Tobacco use disorder Open wound Open wound(s) (multiple) of unspecified site(s), without mention of complication Obesity (BMI 30-39.9) Type 2 diabetes mellitus without complication, with long-term current use of insulin ([facility]) Encounter for wellness examination- Primary Osteoporosis, unspecified osteoporosis type, unspecified pathological fracture presence Open wound of buttock, unspecified laterality, initial encounter Type 2 diabetes mellitus without complication, with long-term current use of insulin ([facility]) Obesity (BMI 30-39.9) Tobacco user Tobacco use disorder Anxiety and depression Type 2 diabetes mellitus with diabetic neuropathy, with long-term current use of insulin ([facility]) COPD mixed type (HCC) Diabetic polyneuropathy associated with type 2 diabetes mellitus (HCC) Gastroesophageal reflux disease, unspecified whether esophagitis present Mixed hyperlipidemia Mixed hyperlipidemia Primary hypertension Unspecified essential hypertension Edema of extremities Edema Lung nodule, multiple Lymphadenopathy, generalized Vitamin D deficiency Oxygen dependent Dependence on supplemental oxygen Community acquired pneumonia, unspecified laterality COPD mixed type (HCC)- Primary SANTO (obstructive sleep apnea) Obstructive sleep apnea (adult) (pediatric) Lung nodule, multiple Community acquired pneumonia, unspecified laterality Primary hypertension Unspecified essential hypertension Atrial fibrillation, unspecified type (HCC) Type 2 diabetes mellitus without complication, with long-term current use of insulin ([facility]) Tobacco user Tobacco use disorder Needs flu shot Need for prophylactic vaccination and inoculation against influenza Right wrist pain- Primary Pain in joint, forearm Obesity (BMI 30-39.9) 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 (HCC)- Primary COPD with acute exacerbation (HCC)- Primary Oxygen dependent Dependence on supplemental oxygen COPD mixed type (HCC) Obesity (BMI 30-39.9) COVID- Primary Type 2 diabetes mellitus with diabetic polyneuropathy (HCC) Type 2 diabetes mellitus with hyperglycemia (HCC) 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 classified elsewhere ([facility]) 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) COPD mixed type (HCC) Paroxysmal atrial fibrillation (HCC) Atrial fibrillation Primary hypertension Unspecified essential hypertension Tobacco user Tobacco use disorder JORDAN (generalized anxiety disorder)- Primary Generalized anxiety disorder SANTO (obstructive sleep apnea) Obstructive sleep apnea (adult) (pediatric) Type 2 diabetes mellitus with diabetic polyneuropathy, with long-term current use of insulin ([facility]) COPD mixed type ([facility]) Oxygen dependent Dependence on supplemental oxygen Paroxysmal atrial fibrillation (HCC) Atrial fibrillation Primary hypertension Unspecified essential hypertension Gastroesophageal reflux disease, unspecified whether esophagitis present Obesity (BMI 30-39.9) Type 2 diabetes mellitus without complication, with long-term current use of insulin ([facility]) Anxiety and depression 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 ([facility]) Medical non-compliance Mild episode of recurrent major depressive disorder Cigarette nicotine dependence without complication Encounter for screening mammogram for malignant neoplasm of breast Diabetic polyneuropathy associated with type 2 diabetes mellitus ([facility]) Mixed hyperlipidemia Mixed hyperlipidemia Edema of extremities Edema Abscess of left groin- Primary Primary hypertension Unspecified essential hypertension Type 2 diabetes mellitus without complication, with long-term current use of insulin ([facility]) Cigarette nicotine dependence without complication Encounter for screening mammogram for malignant neoplasm of breast Gill rash of groin Mild episode of recurrent major depressive disorder Primary hypertension- Primary Unspecified essential hypertension documented in this encounter [facility] HealthcareEvaluation note* Diagnosis Primary hypertension- Primary Unspecified essential hypertension Type 2 diabetes mellitus with diabetic neuropathy, with long-term current use of insulin ([facility]) Gastroesophageal reflux disease, unspecified whether esophagitis present Vitamin D deficiency Type 2 diabetes mellitus with complication, without long-term current use of insulin ([facility]) Mixed hyperlipidemia Mixed hyperlipidemia Encounter for screening mammogram for malignant neoplasm of breast SANTO (obstructive sleep apnea) Obstructive sleep apnea (adult) (pediatric) COPD mixed type ([facility]) Anxiety and depression COVID Open wound Open wound(s) (multiple) of unspecified site(s), without mention of complication Morbid obesity with body mass index (BMI) of 40.0 to 49.9 ([facility]) COPD mixed type ([facility])- Primary Dysuria Atrial fibrillation, unspecified type ([facility]) Gastroesophageal reflux disease, unspecified whether esophagitis present Type 2 diabetes mellitus with complication, without long-term current use of insulin ([facility]) Obesity (BMI 30-39.9) Tobacco user Tobacco use disorder Anxiety and depression Dermatitis Contact dermatitis and other eczema, due to unspecified cause Type 2 diabetes mellitus with hyperglycemia ([facility])- Primary Primary hypertension Unspecified essential hypertension Edema of extremities Edema Type 2 diabetes mellitus without complication, with long-term current use of insulin ([facility]) Vitamin D deficiency Tobacco user Tobacco use disorder Dizziness and giddiness Atrial fibrillation, unspecified type (HCC) COPD mixed type (HCC) Open wound of buttock, unspecified laterality, initial encounter- Primary Type 2 diabetes mellitus without complication, with long-term current use of insulin ([facility]) Obesity (BMI 30-39.9) Dizziness and giddiness Viral upper respiratory tract infection- Primary Acute upper respiratory infections of unspecified site Tobacco user Tobacco use disorder Open wound Open wound(s) (multiple) of unspecified site(s), without mention of complication Obesity (BMI 30-39.9) Type 2 diabetes mellitus without complication, with long-term current use of insulin ([facility]) Encounter for wellness examination- Primary Osteoporosis, unspecified osteoporosis type, unspecified pathological fracture presence Open wound of buttock, unspecified laterality, initial encounter Type 2 diabetes mellitus without complication, with long-term current use of insulin ([facility]) Obesity (BMI 30-39.9) Tobacco user Tobacco use disorder Anxiety and depression Type 2 diabetes mellitus with diabetic neuropathy, with long-term current use of insulin ([facility]) COPD mixed type (HCC) Diabetic polyneuropathy associated with type 2 diabetes mellitus ([facility]) Gastroesophageal reflux disease, unspecified whether esophagitis present Mixed hyperlipidemia Mixed hyperlipidemia Primary hypertension Unspecified essential hypertension Edema of extremities Edema Lung nodule, multiple Lymphadenopathy, generalized Vitamin D deficiency Oxygen dependent Dependence on supplemental oxygen Community acquired pneumonia, unspecified laterality COPD mixed type (HCC)- Primary SANTO (obstructive sleep apnea) Obstructive sleep apnea (adult) (pediatric) Lung nodule, multiple Community acquired pneumonia, unspecified laterality Primary hypertension Unspecified essential hypertension Atrial fibrillation, unspecified type (HCC) Type 2 diabetes mellitus without complication, with long-term current use of insulin ([facility]) Tobacco user Tobacco use disorder Needs flu shot Need for prophylactic vaccination and inoculation against influenza Right wrist pain- Primary Pain in joint, forearm Obesity (BMI 30-39.9) 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 ([facility])- Primary COPD with acute exacerbation ([facility])- Primary Oxygen dependent Dependence on supplemental oxygen COPD mixed type (HCC) Obesity (BMI 30-39.9) COVID- Primary Type 2 diabetes mellitus with diabetic polyneuropathy ([facility]) Type 2 diabetes mellitus with hyperglycemia ([facility]) 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 classified elsewhere ([facility]) 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 ([facility]) COPD mixed type (HCC) Paroxysmal atrial fibrillation (HCC) Atrial fibrillation Primary hypertension Unspecified essential hypertension Tobacco user Tobacco use disorder JORDAN (generalized anxiety disorder)- Primary Generalized anxiety disorder SANTO (obstructive sleep apnea) Obstructive sleep apnea (adult) (pediatric) Type 2 diabetes mellitus with diabetic polyneuropathy, with long-term current use of insulin ([facility]) COPD mixed type (HCC) Oxygen dependent Dependence on supplemental oxygen Paroxysmal atrial fibrillation (HCC) Atrial fibrillation Primary hypertension Unspecified essential hypertension Gastroesophageal reflux disease, unspecified whether esophagitis present Obesity (BMI 30-39.9) Type 2 diabetes mellitus without complication, with long-term current use of insulin ([facility]) Anxiety and depression 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 ([facility]) Medical non-compliance Mild episode of recurrent major depressive disorder Cigarette nicotine dependence without complication Encounter for screening mammogram for malignant neoplasm of breast Diabetic polyneuropathy associated with type 2 diabetes mellitus ([facility]) Mixed hyperlipidemia Mixed hyperlipidemia Edema of extremities Edema Abscess of left groin- Primary Primary hypertension Unspecified essential hypertension Type 2 diabetes mellitus without complication, with long-term current use of insulin ([facility]) Cigarette nicotine dependence without complication Encounter for screening mammogram for malignant neoplasm of breast Gill rash of groin Mild episode of recurrent major depressive disorder Gill infection of genital region- Primary Type 2 diabetes mellitus without complication, with long-term current use of insulin ([facility]) Gill rash of groin Abscess of left groin documented in this encounter [facility] HealthcareEvaluation note* Diagnosis Primary hypertension- Primary Unspecified essential hypertension Type 2 diabetes mellitus with diabetic neuropathy, with long-term current use of insulin ([facility]) Gastroesophageal reflux disease, unspecified whether esophagitis present Vitamin D deficiency Type 2 diabetes mellitus with complication, without long-term current use of insulin ([facility]) Mixed hyperlipidemia Mixed hyperlipidemia Encounter for screening mammogram for malignant neoplasm of breast SANTO (obstructive sleep apnea) Obstructive sleep apnea (adult) (pediatric) COPD mixed type ([facility]) Anxiety and depression COVID Open wound Open wound(s) (multiple) of unspecified site(s), without mention of complication Morbid obesity with body mass index (BMI) of 40.0 to 49.9 ([facility]) COPD mixed type (HCC)- Primary Dysuria Atrial fibrillation, unspecified type ([facility]) Gastroesophageal reflux disease, unspecified whether esophagitis present Type 2 diabetes mellitus with complication, without long-term current use of insulin ([facility]) Obesity (BMI 30-39.9) Tobacco user Tobacco use disorder Anxiety and depression Dermatitis Contact dermatitis and other eczema, due to unspecified cause Type 2 diabetes mellitus with hyperglycemia (HCC)- Primary Primary hypertension Unspecified essential hypertension Edema of extremities Edema Type 2 diabetes mellitus without complication, with long-term current use of insulin (HCC) Vitamin D deficiency Tobacco user Tobacco use disorder Dizziness and giddiness Atrial fibrillation, unspecified type (HCC) COPD mixed type (HCC) Open wound of buttock, unspecified laterality, initial encounter- Primary Type 2 diabetes mellitus without complication, with long-term current use of insulin ([facility]) Obesity (BMI 30-39.9) Dizziness and giddiness Viral upper respiratory tract infection- Primary Acute upper respiratory infections of unspecified site Tobacco user Tobacco use disorder Open wound Open wound(s) (multiple) of unspecified site(s), without mention of complication Obesity (BMI 30-39.9) Type 2 diabetes mellitus without complication, with long-term current use of insulin ([facility]) Encounter for wellness examination- Primary Osteoporosis, unspecified osteoporosis type, unspecified pathological fracture presence Open wound of buttock, unspecified laterality, initial encounter Type 2 diabetes mellitus without complication, with long-term current use of insulin ([facility]) Obesity (BMI 30-39.9) Tobacco user Tobacco use disorder Anxiety and depression Type 2 diabetes mellitus with diabetic neuropathy, with long-term current use of insulin (HCC) COPD mixed type (HCC) Diabetic polyneuropathy associated with type 2 diabetes mellitus (HCC) Gastroesophageal reflux disease, unspecified whether esophagitis present Mixed hyperlipidemia Mixed hyperlipidemia Primary hypertension Unspecified essential hypertension Edema of extremities Edema Lung nodule, multiple Lymphadenopathy, generalized Vitamin D deficiency Oxygen dependent Dependence on supplemental oxygen Community acquired pneumonia, unspecified laterality COPD mixed type (HCC)- Primary SANTO (obstructive sleep apnea) Obstructive sleep apnea (adult) (pediatric) Lung nodule, multiple Community acquired pneumonia, unspecified laterality Primary hypertension Unspecified essential hypertension Atrial fibrillation, unspecified type (HCC) Type 2 diabetes mellitus without complication, with long-term current use of insulin ([facility]) Tobacco user Tobacco use disorder Needs flu shot Need for prophylactic vaccination and inoculation against influenza Right wrist pain- Primary Pain in joint, forearm Obesity (BMI 30-39.9) 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 (HCC)- Primary COPD with acute exacerbation (HCC)- Primary Oxygen dependent Dependence on supplemental oxygen COPD mixed type (HCC) Obesity (BMI 30-39.9) COVID- Primary Type 2 diabetes mellitus with diabetic polyneuropathy (HCC) Type 2 diabetes mellitus with hyperglycemia (HCC) 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 classified elsewhere (HCC) [facility] (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 (HCC) COPD mixed type (HCC) Paroxysmal atrial fibrillation (HCC) Atrial fibrillation Primary hypertension Unspecified essential hypertension Tobacco user Tobacco use disorder JORDAN (generalized anxiety disorder)- Primary Generalized anxiety disorder SANTO (obstructive sleep apnea) Obstructive sleep apnea (adult) (pediatric) Type 2 diabetes mellitus with diabetic polyneuropathy, with long-term current use of insulin (HCC) COPD mixed type (HCC) Oxygen dependent Dependence on supplemental oxygen Paroxysmal atrial fibrillation (HCC) Atrial fibrillation Primary hypertension Unspecified essential hypertension Gastroesophageal reflux disease, unspecified whether esophagitis present Obesity (BMI 30-39.9) Type 2 diabetes mellitus without complication, with long-term current use of insulin (HCC) Anxiety and depression 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) Medical non-compliance Mild episode of recurrent major depressive disorder Cigarette nicotine dependence without complication Encounter for screening mammogram for malignant neoplasm of breast Diabetic polyneuropathy associated with type 2 diabetes mellitus (HCC) Mixed hyperlipidemia Mixed hyperlipidemia Edema of extremities Edema Abscess of left groin- Primary Primary hypertension Unspecified essential hypertension Type 2 diabetes mellitus without complication, with long-term current use of insulin (HCC) Cigarette nicotine dependence without complication Encounter for screening mammogram for malignant neoplasm of breast Gill rash of groin Mild episode of recurrent major depressive disorder Gill infection of genital region- Primary Type 2 diabetes mellitus without complication, with long-term current use of insulin (HCC) Gill rash of groin Abscess of left groin Type 2 diabetes mellitus without complication, with long-term current use of insulin (HCC)- Primary Gill rash of groin Cigarette nicotine dependence without complication Urge and stress incontinence Mixed incontinence urge and stress (male)(female) Primary hypertension Unspecified essential hypertension Paroxysmal atrial fibrillation (HCC) Atrial fibrillation Medical non-compliance documented in this encounter [facility] HealthcareEvaluation note* Diagnosis Primary hypertension- Primary Unspecified essential hypertension Type 2 diabetes mellitus with diabetic neuropathy, with long-term current use of insulin (HCC) Gastroesophageal reflux disease, unspecified whether esophagitis present Vitamin D deficiency Type 2 diabetes mellitus with complication, without long-term current use of insulin (HCC) Mixed hyperlipidemia Mixed hyperlipidemia Encounter for screening mammogram for malignant neoplasm of breast SANTO (obstructive sleep apnea) Obstructive sleep apnea (adult) (pediatric) COPD mixed type (HCC) Anxiety and depression COVID Open wound Open wound(s) (multiple) of unspecified site(s), without mention of complication Morbid obesity with body mass index (BMI) of 40.0 to 49.9 ([facility]) COPD mixed type (HCC)- Primary Dysuria Atrial fibrillation, unspecified type ([facility]) Gastroesophageal reflux disease, unspecified whether esophagitis present Type 2 diabetes mellitus with complication, without long-term current use of insulin ([facility]) Obesity (BMI 30-39.9) Tobacco user Tobacco use disorder Anxiety and depression Dermatitis Contact dermatitis and other eczema, due to unspecified cause Type 2 diabetes mellitus with hyperglycemia ([facility])- Primary Primary hypertension Unspecified essential hypertension Edema of extremities Edema Type 2 diabetes mellitus without complication, with long-term current use of insulin ([facility]) Vitamin D deficiency Tobacco user Tobacco use disorder Dizziness and giddiness Atrial fibrillation, unspecified type ([facility]) COPD mixed type (HCC) Open wound of buttock, unspecified laterality, initial encounter- Primary Type 2 diabetes mellitus without complication, with long-term current use of insulin ([facility]) Obesity (BMI 30-39.9) Dizziness and giddiness Viral upper respiratory tract infection- Primary Acute upper respiratory infections of unspecified site Tobacco user Tobacco use disorder Open wound Open wound(s) (multiple) of unspecified site(s), without mention of complication Obesity (BMI 30-39.9) Type 2 diabetes mellitus without complication, with long-term current use of insulin ([facility]) Encounter for wellness examination- Primary Osteoporosis, unspecified osteoporosis type, unspecified pathological fracture presence Open wound of buttock, unspecified laterality, initial encounter Type 2 diabetes mellitus without complication, with long-term current use of insulin ([facility]) Obesity (BMI 30-39.9) Tobacco user Tobacco use disorder Anxiety and depression Type 2 diabetes mellitus with diabetic neuropathy, with long-term current use of insulin ([facility]) COPD mixed type ([facility]) Diabetic polyneuropathy associated with type 2 diabetes mellitus ([facility]) Gastroesophageal reflux disease, unspecified whether esophagitis present Mixed hyperlipidemia Mixed hyperlipidemia Primary hypertension Unspecified essential hypertension Edema of extremities Edema Lung nodule, multiple Lymphadenopathy, generalized Vitamin D deficiency Oxygen dependent Dependence on supplemental oxygen Community acquired pneumonia, unspecified laterality COPD mixed type (HCC)- Primary SANTO (obstructive sleep apnea) Obstructive sleep apnea (adult) (pediatric) Lung nodule, multiple Community acquired pneumonia, unspecified laterality Primary hypertension Unspecified essential hypertension Atrial fibrillation, unspecified type (HCC) Type 2 diabetes mellitus without complication, with long-term current use of insulin (HCC) Tobacco user Tobacco use disorder Needs flu shot Need for prophylactic vaccination and inoculation against influenza Right wrist pain- Primary Pain in joint, forearm Obesity (BMI 30-39.9) 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 (HCC)- Primary COPD with acute exacerbation (HCC)- Primary Oxygen dependent Dependence on supplemental oxygen COPD mixed type (HCC) Obesity (BMI 30-39.9) COVID- Primary Type 2 diabetes mellitus with diabetic polyneuropathy (HCC) Type 2 diabetes mellitus with hyperglycemia (HCC) 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 classified elsewhere ([facility]) 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) COPD mixed type (HCC) Paroxysmal atrial fibrillation (HCC) Atrial fibrillation Primary hypertension Unspecified essential hypertension Tobacco user Tobacco use disorder JORDAN (generalized anxiety disorder)- Primary Generalized anxiety disorder ASNTO (obstructive sleep apnea) Obstructive sleep apnea (adult) (pediatric) Type 2 diabetes mellitus with diabetic polyneuropathy, with long-term current use of insulin ([facility]) COPD mixed type (HCC) Oxygen dependent Dependence on supplemental oxygen Paroxysmal atrial fibrillation (HCC) Atrial fibrillation Primary hypertension Unspecified essential hypertension Gastroesophageal reflux disease, unspecified whether esophagitis present Obesity (BMI 30-39.9) Type 2 diabetes mellitus without complication, with long-term current use of insulin ([facility]) Anxiety and depression 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 ([facility]) Medical non-compliance Mild episode of recurrent major depressive disorder Cigarette nicotine dependence without complication Encounter for screening mammogram for malignant neoplasm of breast Diabetic polyneuropathy associated with type 2 diabetes mellitus (HCC) Mixed hyperlipidemia Mixed hyperlipidemia Edema of extremities Edema Abscess of left groin- Primary Primary hypertension Unspecified essential hypertension Type 2 diabetes mellitus without complication, with long-term current use of insulin (HCC) Cigarette nicotine dependence without complication Encounter for screening mammogram for malignant neoplasm of breast Gill rash of groin Mild episode of recurrent major depressive disorder Gill infection of genital region- Primary Type 2 diabetes mellitus without complication, with long-term current use of insulin (HCC) Gill rash of groin Abscess of left groin Type 2 diabetes mellitus without complication, with long-term current use of insulin (HCC)- Primary Gill rash of groin Cigarette nicotine dependence without complication Urge and stress incontinence Mixed incontinence urge and stress (male)(female) Primary hypertension Unspecified essential hypertension Paroxysmal atrial fibrillation (HCC) Atrial fibrillation Medical non-compliance Mild episode of recurrent major depressive disorder documented in this encounter [facility] HealthcareReason for referral (narrative)* Consultation (Routine) - Pending Review Specialty Diagnoses / Procedures Referred By Darcie joshua Referred To Contact Wound Care Diagnoses Open wound Type 2 diabetes mellitus without complication, with long-term current use of insulin ([facility]) Procedures PA OFFICE/OUTPATIENT NEW HIGH MDM 60 MINUTES Maira Rush NP [address] [place] [address] Referral ID Status Reason Start Date Expiration Date Visits Requested Visits Authorized [id number] Pending Review Specialty Services Required 03/11/2024 09/07/2024 1 1 Scheduling Instructions Please call [facility] and schedule pt with their wound [...] Directives Records FoundNo Advanced Directives Records Found Reason for Referral Specialty Diagnoses / Procedures Referred By Darcie joshua Referred To Contact Diagnoses COPD mixed type (CMS/HCC) Maira Rush NP [address] [place] [address] Referral ID Status Reason Start Date Expiration Date V isits Requested Visits Authorized [id number] Pending Review 1 1 Additional Source Comments INFORMATION SOURCE (unrecogn ized section and content) DATE CREATED AUTHOR 10/06/2018 [facility] DATE CREATED AUTHOR AUTHOR'S ORGANIZ ATION 10/09/2022 [facility] DATE CREATED AUTHOR AUTHOR'S ORGANIZ ATION 01/25/2024 [facility] DATE CREATED AUTHOR AUTHOR'S ORGANIZ ATION 02/14/2024 [facility] DATE CREATED AUTHOR AUTHOR'S ORGANIZ ATION 03/22/2024 [facility] DATE CREATED AUTHOR AUTHOR'S ORGANIZ ATION 11/02/2024 [facility] DATE CREATED AUTHOR AUTHOR'S ORGANIZ ATION 12/17/2024 [facility] Care Teams (unrecognized sec tion and content) Animal Shelter Manager Relationship Specialty Start Date End Date Brandon Mcfarlane MD [address] [place] [address] PCP - General Family Medicine 06/26/23 Maira Rush NP [address] [place] [address] Referring Physician Nurse Practitioner 12/17/22 Animal Shelter Manager Relationship Specialty Start Date End Date Brandon Mcfarlane MD [address] [place] [address] PCP - General Family Medicine 06/26/23 Maira Rush NP [address] [place] [address] Referring Physician Nurse Practitioner 12/17/22 Animal Shelter Manager Relationship Specialty Start Date End Date Brandon Mcfarlane MD [address] [place] [address] PCP - General Family Medicine 06/26/23 Maira Rush NP [address] [place] [address] Referring Physician Nurse Practitioner 12/17/22 Animal Shelter Manager Relationship Specialty Start Date End Date Brandon Mcfarlane MD [address] [place] [address] PCP - General Family Medicine 06/26/23 Maira Rush NP [address] [place] [address] Referring Physician Nurse Practitioner 12/17/22 Animal Shelter Manager Relationship Specialty Start Date End Date Brandon Mcfarlane MD [address] [place] [address] PCP - General Family Medicine 06/26/23 Maira Rush NP [address] [place] [address] Referring Physician Nurse Practitioner 12/17/22 Animal Shelter Manager Relationship Specialty Start Date End Date Brandon Mcfarlane MD [address] [place] [address] PCP - General Family Medicine 06/26/23 Maira Rush NP [address] [place] [address] Referring Physician Nurse Practitioner 12/17/22 Animal Shelter Manager Relationship Specialty Start Date End Date Brandon Mcfarlane MD [address] [place] [address] PCP - General Family Medicine 06/26/23 Maira Rush NP [address] [place] [address] Referring Physician Nurse Practitioner 12/17/22 Animal Shelter Manager Relationship Specialty Start Date End Date Brandon Mcfarlane MD [address] [place] [address] PCP - General Family Medicine 06/26/23 Maira Rush NP [address] [place] [address] Referring Physician Nurse Practitioner 12/17/22 Animal Shelter Manager Relationship Specialty Start Date End Date Brandon Mcfarlane MD [address] [place] [address] PCP - General Family Medicine 06/26/23 Maira Rush NP [address] [place] [address] Referring Physician Nurse Practitioner 12/17/22 Animal Shelter Manager Relationship Specialty Start Date End Date Brandon Mcfarlane MD [address] [place] [address] PCP - General Family Medicine 06/26/23 Maira Rush NP [address] [place] [address] Referring Physician Nurse Practitioner 12/17/22 Animal Shelter Manager Relationship Specialty Start Date End Date Brandon Mcfarlane MD [address] [place] [address] PCP - General Family Medicine 06/26/23 Maira Rush NP [address] [place] [address] Referring Physician Nurse Practitioner 12/17/22 Animal Shelter Manager Relationship Specialty Start Date End Date Brandon Mcfarlane MD [address] [place] [address] PCP - General Family Medicine 06/26/23 Maira Rush NP [address] [place] [address] Referring Physician Nurse Practitioner 12/17/22 Animal Shelter Manager Relationship Specialty Start Date End Date Brandon Mcfarlane MD [address] [place] [address] PCP - General Family Medicine 06/26/23 Maira Rush NP [address] [place] [address] Referring Physician Nurse Practitioner 12/17/22 Animal Shelter Manager Relationship Specialty Start Date End Date Brandon Mcfarlane MD [address] [place] [address] PCP - General Family Medicine 06/26/23 Maira Rush NP [address] [place] [address] Referring Physician Nurse Practitioner 12/17/22 Animal Shelter Manager Relationship Specialty Start Date End Date Brandon Mcfarlane MD [address] [place] [address] PCP - General Family Medicine 06/26/23 Maira Rush NP [address] [place] [address] Referring Physician Nurse Practitioner 12/17/22 Animal Shelter Manager Relationship Specialty Start Date End Date Brandon Mcfarlane MD [address] [place] [address] PCP - General Family Medicine 06/26/23 Maira Rush NP [address] [place] [address] Referring Physician Nurse Practitioner 12/17/22 Animal Shelter Manager Relationship Specialty Start Date End Date Brandon Mcfarlane MD [address] [place] [address] PCP - General Family Medicine 06/26/23 Maira Rush NP [address] [place] [address] Referring Physician Nurse Practitioner 12/17/22 Animal Shelter Manager Relationship Specialty Start Date End Date Brandon Mcfarlane MD [address] [place] [address] PCP - General Family Medicine 06/26/23 Maira Rush NP [address] [place] [address] Referring Physician Nurse Practitioner 12/17/22 Animal Shelter Manager Relationship Specialty Start Date End Date Brandon Mcfarlane MD [address] [place] [address] PCP - General Family Medicine 06/26/23 Maira Rush NP [address] [place] [address] Referring Physician Nurse Practitioner 12/17/22 Animal Shelter Manager Relationship Specialty Start Date End Date Brandon Mcfarlane MD [address] [place] [address] PCP - General Family Medicine 06/26/23 Maira Rush NP [address] [place] [address] Referring Physician Nurse Practitioner 12/17/22 Animal Shelter Manager Relationship Specialty Start Date End Date Brandon Mcfarlane MD [address] [place] [address] PCP - General Family Medicine 06/26/23 Maira Rush NP [address] [place] [address] Referring Physician Nurse Practitioner 12/17/22 Animal Shelter Manager Relationship Specialty Start Date End Date Brandon Mcfarlane MD [address] [place] [address] PCP - General Family Medicine 06/26/23 Maira Rush NP [address] [place] [address] Referring Physician Nurse Practitioner 12/17/22 Animal Shelter Manager Relationship Specialty Start Date End Date Brandon Mcfarlane MD [address] [place] [address] PCP - General Family Medicine 06/26/23 Maira Rush NP [address] [place] [address] Referring Physician Nurse Practitioner 12/17/22 Animal Shelter Manager Relationship Specialty Start Date End Date Brandon Mcfarlane MD [address] [place] [address] PCP - General Family Medicine 06/26/23 Maira Rush NP [address] [place] [address] Referring Physician Nurse Practitioner 12/17/22 Animal Shelter Manager Relationship Specialty Start Date End Date Brandon Mcfarlane MD [address] [place] [address] PCP - General Family Medicine 06/26/23 Maira Rush NP [address] [place] [address] Referring Physician Nurse Practitioner 12/17/22 Animal Shelter Manager Relationship Specialty Start Date End Date Brandon Mcfarlane MD [address] [place] [address] PCP - General Family Medicine 06/26/23 Maira Rush NP [address] [place] [address] Referring Physician Nurse Practitioner 12/17/22 Animal Shelter Manager Relationship Specialty Start Date End Date Brandon Mcfarlane MD [address] [place] [address] PCP - General Family Medicine 06/26/23 Maira Rush NP [address] [place] [address] Referring Physician Nurse Practitioner 12/17/22 Animal Shelter Manager Relationship Specialty Start Date End Date Brandon Mcfarlane MD [address] [place] [address] PCP - General Family Medicine 06/26/23 Maira Rush NP [address] [place] [address] Referring Physician Nurse Practitioner 12/17/22 Animal Shelter Manager Relationship Specialty Start Date End Date Brandon Mcfarlane MD [address] [place] [address]10[address] PCP - General Family Medicine 06/26/23 Maira Rush NP [address] [place] [address] Referring Physician Nurse Practitioner 12/17/22 Animal Shelter Manager Relationship Specialty Start Date End Date Brandon Mcfarlane MD [address] [place] [address] PCP - General Family Medicine 06/26/23 Maira Rush NP [address] [place] [address] [facility] 06/03/24 Maira Rush NP [address] [place] [address] Referring Physician Nurse Practitioner 12/17/22 Animal Shelter Manager Relationship Specialty Start Date End Date Brandon Mcfarlane MD [address] [place] [address] PCP - General Family [facility] 06/26/23 Maira Rush NP [address] [place] [address] [facility] 06/03/24 Maira Rush NP [address] [place] [address] Referring Physician Nurse Practitioner 12/17/22 Animal Shelter Manager Relationship Specialty Start Date End Date Brandon Mcfarlane MD [address] [place] [address] PCP - General [facility] 06/26/23 Maira Rush NP [address] [place] [address] [facility] 06/03/24 Maira Rush NP [address] [place] [address] Referring Physician Nurse Practitioner 12/17/22 Animal Shelter Manager Relationship Specialty Start Date End Date Brandno Mcfarlane MD [address] [place] [address] PCP - General Family [facility] 06/26/23 Maira Rush NP [address] [place] [address] [facility] 06/03/24 Maira Rush NP [address] [place] [address] Referring Physician Nurse Practitioner 12/17/22 Animal Shelter Manager Relationship Specialty Start Date End Date Brandon Mcfarlane MD [address] [place] [address] PCP - [facility] 06/26/23 Maira Rush NP [address] [place] [address] [facility] 06/03/24 Maira Rush NP [address] [place] [address] Referring Physician Nurse Practitioner 12/17/22 Animal Shelter Manager Relationship Specialty Start Date End Date Brandon Mcfarlane MD [address] [place] [address] PCP - [facility] 06/26/23 Maira Rush NP [address] [place] [address] [facility] 06/03/24 Maira Rush NP [address] [place] [address] Referring Physician Nurse Practitioner 12/17/22 Animal Shelter Manager Relationship Specialty Start Date End Date Brandon Mcfarlane MD [address] [place] [address] PCP - General Family [facility] 06/26/23 Maira Rush NP [address] [place] [address] [facility] 06/03/24 Maira Rush NP [address] [place] [address] Referring Physician Nurse Practitioner 12/17/22 Animal Shelter Manager Relationship Specialty Start Date End Date Brandon Mcfarlane MD [address] [place] [address] PCP - General [facility] 06/26/23 Maira Rush NP [address] [place] [address] [facility] 06/03/24 Maira Rush NP [address] [place] [address] Referring Physician Nurse Practitioner 12/17/22 Animal Shelter Manager Relationship Specialty Start Date End Date Brandon Mcfarlane MD [address] [place] [address] PCP - General Family [facility] 06/26/23 Maira Rush NP [address] [place] [address] [facility] 06/03/24 Maira Rush NP [address] [place] [address] Referring Physician Nurse Practitioner 12/17/22 Animal Shelter Manager Relationship Specialty Start Date End Date Brandon Mcfarlane MD [address] [place] [address] PCP - [facility] 06/26/23 Maira Rush NP [address] [place] [address] [facility] 06/03/24 Maira Rush NP [address] [place] [address] Referring Physician Nurse Practitioner 12/17/22 Animal Shelter Manager Relationship Specialty Start Date End Date Brandon Mcfarlane MD [address] [place] [address] PCP - [facility] 06/26/23 Maira Rush NP [address] [place] [address] [facility] 06/03/24 Maira Rush NP [address] [place] [address] Referring Physician Nurse Practitioner 12/17/22 Animal Shelter Manager Relationship Specialty Start Date End Date Brandon Mcfarlane MD [address] [place] [address] PCP - [facility] 06/26/23 Maira Rush NP [address] [place] [address] PCP [facility] 06/03/24 Maira Rush NP [address] [place] [address] Referring Physician Nurse Practitioner 12/17/22 Animal Shelter Manager Relationship Specialty Start Date End Date Brandon Mcfarlane MD [address] [place] [address] PCP - General [facility] 06/26/23 Maira Rush NP [address] [place] [address] PCP - [facility] 06/03/24 Maira Rush NP [address] [place] [address] Referring Physician Nurse Practitioner 12/17/22 Animal Shelter Manager Relationship Specialty Start Date End Date Brandon Mcfarlane MD [address] [place] [address] PCP - General Family [facility] 06/26/23 Maira Rsuh NP [address] [place] [address] [facility] 06/03/24 Maira Rush NP [address] [place] [address] Referring Physician Nurse Practitioner 12/17/22 Animal Shelter Manager Relationship Specialty Start Date End Date Brandon Mcfarlane MD [address] [place] [address] PCP - [facility] 06/26/23 Maira Rush NP [address] [place] [address] [facility] 06/03/24 Maira Rush NP [address] [place] [address] Referring Physician Nurse Practitioner 12/17/22 Animal Shelter Manager Relationship Specialty Start Date End Date Brandon Mcfarlane MD [address] [place] [address] PCP - [facility] 06/26/23 Maira Rush NP [address] [place] [address] [facility] 06/03/24 Maira Rush NP [address] [place] [address] Referring Physician Nurse Practitioner 12/17/22 Animal Shelter Manager Relationship Specialty Start Date End Date Brandon Mcfarlane MD [address] [place] [address] PCP - [facility] 06/26/23 Maira Ruhs NP [address] [place] [address] [facility] 06/03/24 Maira Rush NP [address] [place] [address] Referring Physician Nurse Practitioner 12/17/22 Animal Shelter Manager Relationship Specialty Start Date End Date Brandon Mcfarlane MD [address] [place] [address] PCP - [facility] 06/26/23 Maira Rush NP [address] [place] [address] [facility] 06/03/24 Maira Rush NP [address] [place] [address] Referring Physician Nurse Practitioner 12/17/22 Animal Shelter Manager Relationship Specialty Start Date End Date Brandon Mcfarlane MD [address] [place] [address] PCP - General Family [facility] 06/26/23 Maira Rush NP [address] [place] [address] [facility] 06/03/24 Maira Rush NP [address] [place] [phone] Referring Physician Nurse Practitioner 12/17/22 Animal Shelter Manager Relationship Specialty Start Date End Date Brandon Mcfarlane MD [address] [place] [phone] PCP - [facility] 06/26/23 Maira Rush NP [address] [place] [phone] [facility] 06/03/24 Maira Rush NP [address] [place] [phone] Referring Physician Nurse Practitioner 12/17/22 Animal Shelter Manager Relationship Specialty Start Date End Date Brandon Mcfarlane MD [address] [place] [phone] PCP - [facility] 06/26/23 Maira Rush NP [address] [place] [phone] [facility] 06/03/24 Maira Rush NP [address] [place] [address] Referring Physician Nurse Practitioner 12/17/22 Animal Shelter Manager Relationship Specialty Start Date End Date Brandon Mcfarlane MD [address] [place] [address] PCP - [facility] 06/26/23 Maira Rsuh NP [address] [place] [phone] PCP - [facility] 06/03/24 Maira Rush NP [address] [place] [phone] Referring Physician Nurse Practitioner 12/17/22 Chandrika Danielson, [place] [address] [place] [address] Family Medicine 12/14/24 Lilian Quezada, [facility] [address] [place] [address] District Agent Family Medicine 12/14/24 Animal Shelter Manager Relationship Specialty Start Date End Date Brandon Mcfarlane MD [address] [place] [phone] PCP - [facility] 06/26/23 Maira Rush NP [address] [place] [phone] PCP - [facility] 06/03/24 Maira Rush NP [address] [place] [address] Referring Physician Nurse Practitioner 12/17/22 Chandrika Danielson, NORAH [address] [place] [address] Family Medicine 12/14/24 Lilian Quezada, MIAH [address] [place] [address] District Agent Family Medicine 12/14/24 Reason for Visit (unrecogniz ed section and content) Reason Onset Date Comments Med Refill 03/16/2024 Reason Comments Diabetes Annual Exam Reason Comments Joint Swelling Reason Comments Diabetes Follow-up 1.5 YRS Reason Comments Cough URI Reason Comments Med Refill Reason Comments COPD Reason Comments JORDAN Reason Comments Med Refill Reason Comments Wound Check Reason Comments Diaper Rash Reason Comments Diabetes FOR RECORDS PERTAINING TO PATIENTS WHO ARE [...] BE BASED ON THE PRIMARY CLINICAL RECORDS. [facility] [employer] [facility]. provides no warranty or guarantee of the accuracy or completeness of information in this document.
--- NOTE | 2025-01-09 18:46 | ED.CHESTPAI1 ---
HPI - Chest Pain General Chief Complaint: Chest Pain Stated Complaint: Chest Pain Time Seen by Provider: 01/09/25 18:35 Source: patient Mode of arrival: ambulance Limitations: no limitations History of Present Illness HPI narrative: 64-year-old female is coming to the ER with retrosternal pain that started just before coming here within the hour, patient mentioned that she was just eating some chili when the pain started, she is also complaining of epigastric pain with no nausea no vomiting No change in bowel movement shortness of breath Related Data Home Medications ?Medication ?Instructions ?Recorded ?Confirmed aspirin 81 mg tablet,delayed 81 mg PO DAILY 04/05/23 10/03/24 release budesonide-formoterol HFA 160 2 puff inhalation BID 04/05/23 10/03/24 mcg-4.5 mcg/actuation aerosol inhaler (Symbicort) calcium 500 mg (as 1 tab PO BID 04/05/23 10/03/24 carbonate)-vitamin D3 10 mcg (400 unit) tablet carvedilol 12.5 mg tablet 12.5 mg PO BID 04/05/23 10/03/24 empagliflozin 25 mg tablet 25 mg PO DAILY 04/05/23 10/03/24 (Jardiance) gabapentin 600 mg tablet 600 mg PO TID 04/05/23 10/03/24 insulin aspart U-100 100 unit/mL 1 sliding scale dose subcut 04/05/23 10/03/24 (3 mL) subcutaneous pen (Novolog TIDWMEAL FlexPen U-100 Insulin aspart) insulin glargine 100 unit/mL (3 60 unit subcut QPM 04/05/23 10/03/24 mL) subcutaneous pen (Lantus Solostar U-100 Insulin) losartan 100 mg tablet 100 mg PO DAILY 04/05/23 10/03/24 pantoprazole 40 mg tablet,delayed 40 mg PO DAILY 04/05/23 10/03/24 release potassium chloride 10 mEq 10 meq PO DAILY 04/05/23 10/03/24 capsule,extended release rivaroxaban 20 mg tablet (Xarelto) 20 mg PO DAILY 04/05/23 10/03/24 rosuvastatin 5 mg tablet 5 mg PO DAILY 04/05/23 10/03/24 spironolactone 25 mg tablet 25 mg PO BID 04/05/23 10/03/24 tiotropium bromide 2.5 2 puff inhalation DAILY 04/05/23 10/03/24 mcg/actuation mist for inhalation (Spiriva Respimat) furosemide 20 mg tablet 20 mg PO DAILY 01/03/24 10/03/24 cholecalciferol (vitamin D3) 50 2,000 unit PO DAILY 10/03/24 10/03/24 mcg (2,000 unit) tablet paroxetine HCl 30 mg tablet 30 mg PO DAILY 10/03/24 10/03/24 Previous Rx's ?Medication ?Instructions ?Recorded albuterol sulfate 90 mcg/actuation 2 inh inhalation Q4H PRN shortness 06/25/23 aerosol inhaler of breath or wheezing #8.5 grams albuterol sulfate 2.5 mg/3 mL 2.5 mg (3 mL) inhalation Q6H PRN 09/16/23 (0.083 %) solution for nebulization shortness of breath or wheezing #90 mL amoxicillin 875 mg-potassium 1 tab PO BID 7 days #14 tabs 10/05/24 clavulanate 125 mg tablet sulfamethoxazole 800 1 tab PO BID 7 days #14 tabs 10/05/24 mg-trimethoprim 160 mg tablet (Bactrim DS) Allergies Allergy/AdvReac Type Severity Reaction Status Date / Time ciprofloxacin (From Cipro) AdvReac Intermediate Vomiting Verified 09/28/24 11:33 metronidazole (From Flagyl) AdvReac Intermediate Vomiting Verified 09/28/24 11:33 Penicillins AdvReac Intermediate Vomiting Verified 09/28/24 11:33 sulfamethoxazole (From AdvReac Intermediate Vomiting Verified 09/28/24 11:33 Bactrim) trimethoprim (From Bactrim) AdvReac Intermediate Vomiting Verified 09/28/24 11:33 Review of Systems ROS Status of ROS 10 or more systems reviewed and unremarkable except as noted in history and below 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-10) Hypertension ?I10 - Essential (primary) hypertension (ICD-10) Chronic obstructive pulmonary disease ?J44.9 - Chronic obstructive pulmonary disease, unspecified (ICD-10) COVID ?U07.1 - COVID-19 (ICD-10) Acute and chronic respiratory failure (uxain-ld-uohlujx) ?J96.20 - Acute and chronic respiratory failure, unspecified whether with hypoxia or hypercapnia (ICD-10) Acute exacerbation of chronic obstructive pulmonary disease ?J44.1 - Chronic obstructive pulmonary disease with (acute) exacerbation (ICD-10) Dehydration ?E86.0 - Dehydration (ICD-10) Acute infective exacerbation of chronic obstructive airway disease ?J44.1 - Chronic obstructive pulmonary disease with (acute) exacerbation (ICD-10) Syncope ?R55 - Syncope and collapse (ICD-10) Head injury ?S09.90XA - Unspecified injury of head, initial encounter (ICD-10) Fall ?W19.XXXA - Unspecified fall, initial encounter (ICD-10) Closed head injury ?S09.90XA - Unspecified injury of head, initial encounter (ICD-10) Vertigo ?R42 - Dizziness and giddiness (ICD-10) Finger pain, right ?M79.644 - Pain in right finger(s) (ICD-10) Community acquired pneumonia ?J18.9 - Pneumonia, unspecified organism (ICD-10) COPD exacerbation ?J44.1 - Chronic obstructive pulmonary disease with (acute) exacerbation (ICD-10) COVID-19 ?U07.1 - COVID-19 (ICD-10) Hyperglycemia, drug-induced ?R73.9 - Hyperglycemia, unspecified (ICD-10) ?T50.905A - Adverse effect of unspecified drugs, medicaments and biological substances, initial encounter (ICD-10) Abscess ?L02.91 - Cutaneous abscess, unspecified (ICD-10) Acute hyperglycemia ?R73.9 - Hyperglycemia, unspecified (ICD-10) A-fib ?I48.91 - Unspecified atrial fibrillation (ICD-10) Diabetes ?E11.9 - Type 2 diabetes mellitus without complications (ICD-10) Acute shoulder pain ?M25.519 - Pain in unspecified shoulder (ICD-10) Hyperlipidemia ?E78.5 - Hyperlipidemia, unspecified (ICD-10) Depression ?F32.A - Depression, unspecified (ICD-10) Surgical History (Updated 06/24/23 @ 12:13 by Aliyah Ruiz RN) History of appendectomy ?Z90.49 - Acquired absence of other specified parts of digestive tract (ICD-10) Hx of cholecystectomy ?Z90.49 - Acquired absence of other specified parts of digestive tract (ICD-10) H/O: hysterectomy ?Z90.710 - Acquired absence of both cervix and uterus (ICD-10) Family History (Updated 06/24/23 @ 12:13 by Aliyah Ruiz RN) Mother Family history of diabetes mellitus Grandfather Family history of diabetes mellitus Father Family history of stroke Social History (Updated 10/04/24 @ 02:53 by Cherelle Tripahti RN) Within the past year, how often did you have a drink containing alcohol: never Score interpretation: A score less than 3 is consistent with normal alcohol consumption. Smoking status: Current every day smoker Non-prescribed substance use: denies use Previous occupational history: Unemployed Highest level of school completed/degree received: high school graduate Little interest or pleasure in doing things: not at all Feeling down, depressed, or hopeless: not at all Gender Identity: female Exam Narrative Exam Narrative: Nurses notes and vital signs reviewed and patient is not hypoxic. General: Well-appearing and in no apparent distress. Skin: Warm, dry, no pallor noted. No rash. Head: Normocephalic, atraumatic. Neck: Supple, non-tender. Eye: Pupils are equal, round and EOMI. No scleral icterus. Ears, Nose, Mouth, and Throat: TM are clear, no nasal mucosal hypertrophy. Oral mucosa is moist, no posterior oropharynx erythema, uvula is mid-line Cardiovascular: Regular Rate and Rhythm without murmur, gallop or rub. Respiratory: No accessory muscle use or respiratory distress. Lungs are clear to auscultation, no wheezing, rales or rhonchi Chest Wall: no tenderness Back: No midline thoracic or lumbar vertebral tenderness. No CVA tenderness Musculoskeletal: normal ROM, no calf or popliteal tenderness, no lower extremity edema/swelling GI: Abdomen is soft, non-distended. Epigastric discomfort No tenderness to palpation. No rebound, guarding, or rigidity noted. Neurological: A&O x4. No cranial nerve dysfunction observed. Constitutional Vital Signs, click to edit/add: Last Vital Signs Temp 98.1 F 01/09/25 18:37 Pulse 73 01/09/25 18:37 Resp 18 08/09/25 18:37 BP 113/57 01/09/25 18:37 Pulse Ox 94 L 01/09/25 18:37 O2 Del Method Room Air 01/09/25 18:37 Course Vital Signs Vital signs: Vital Signs Temperature 98.1 F 01/09/25 18:37 Pulse Rate 73 01/09/25 18:37 Respiratory Rate 18 01/09/25 18:37 Blood Pressure 113/57 01/09/25 18:37 Pulse Oximetry 94 L 01/09/25 18:37 Oxygen Delivery Method Room Air 01/09/25 18:37 Temperature 98.1 F 01/09/25 18:37 Pulse Rate 73 01/09/25 18:37 Respiratory Rate 18 01/09/25 18:37 Blood Pressure 113/57 01/09/25 18:37 Pulse Oximetry 94 L 01/09/25 18:37 Oxygen Delivery Method Room Air 01/09/25 18:37 MDM - Chest Pain MDM Narrative Medical decision making narrative: The patient presentation is a with chest pain that seems to be atypical but she does have an age of 64 and she have risk factors The patient EKG showing sinus rhythm with a heart rate of [address] elevation or depression The patient blood workup as well as x-ray pending and her care will be transferred to Discharge Plan Discharge Patient Disposition: Still a Patient
[2025-01-09] MEDS: FAMOTIDINE/PF 20 MG/2 ML VIAL IV (18:54)
[2025-01-09 19:06] LABS: Hematocrit 47.4 % (36.0-48.0); Hemoglobin 15.9 g/dL (12.0-16.0); Immature Granulocytes Abs Auto 0.04 10^3/uL (0.00-0.03); Immature Granulocytes Pct Auto 0.3 % (0.0-0.5); Lymphocytes Absolute Auto 2.7 10^3/uL (1.2-3.8); Mean Corpuscular HGB Conc 33.5 g/dL (29.9-35.2); Mean Corpuscular Hemoglobin 30.8 pg (26.7-34.0); Mean Corpuscular Volume 91.7 fL (81.0-99.0); Platelet Count 285 10^3/uL (150-450); Red Blood Count 5.17 10^6/uL (4.20-5.40); White Blood Count 11.8 10^3/uL (4.0-11.0)
[2025-01-09 19:19] LABS: INR 1.14; Prothrombin Time 11.9 sec (9.0-11.6)
[2025-01-09 19:22] LABS: Alanine Aminotransferase 21 U/L (14-59); Albumin Globulin Ratio 0.8; Albumin Level 3.1 g/dL (3.4-5.0); Alkaline Phosphatase 111 U/L (46-116); Anion Gap 16.5; Aspartate Amino Transferase 13 U/L (15-37); Blood Urea Nitrogen 7.0 mg/dL (7.0-18.0); Calcium 9.1 mg/dL (8.5-10.1); Carbon Dioxide 26.5 mmol/L (21.0-32.0); Chloride 100 mmol/L (98-107); Estimated GFR (African America >60 (>=60 mL/min/1.73m^2); Estimated GFR (Non-African Ame 58 (>=60 mL/min/1.73m^2); Globulin 3.7 g/dL; Potassium 3.0 mmol/L (3.5-5.1); Sodium 140 mmol/L (136-145); Total Protein 6.8 g/dL (6.4-8.2)
[2025-01-09 19:32] LABS: Glucose 554 mg/dL (74-106)
[2025-01-09] MEDS: POTASSIUM CHLORIDE 10 MEQ ER TABLET 20 MEQ PO (20:20)
[2025-01-09] MEDS: INSULIN REGULAR, HUMAN (100 UNIT/ML) 10 ML MDV 10 UNIT IV (20:20)
== END 2025-01-09 21:36 | disposition home or self-care (01) ==
PROVIDERS: Emergency Medicine; Emergency Provider Student in an Organized Health Care Education/Training Program; PCP Nurse Practitioner
DX: R07.89 Other chest pain (principal); R10.13 Epigastric pain; E11.65 Type 2 diabetes mellitus with hyperglycemia; Z79.4 Long term (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
CPT/HCPCS: 36415; 71045; 80053; 84484; 85025; 85378; 85610; 93005; 96374; 99285; J1817; J3490

== ENCOUNTER 2025-01-27 00:07 | Inpatient (IN) | payer OTHER, SELFPAY ==
--- OUTSIDE RECORDS SUMMARY | 2025-01-15 12:51 | XMS_ITS | Encounter Summary ---
[facility] Organization [facility] tem Address [id number] [address] [place] [address] Care Team Providers Care Premium Cancellation Clerk Name Role Phone Maira Rush APRN-QUALITY CONTROL MICROBIOLOGY SUPERVISOR Primary Care Provider Reason for Visit * Reason Comments Syncope Medical Screening Encounter Details Date Type Department Care Team (Late st Contact Info) Description 01/15/2025 12:51 PM EDT - 01/15/2025 5:15 PM EDT Emergency [facility] - Emergency [address] [place] [address] José Shine, DO [address] [place] [address] [phone] Syncope, unspecified syncope type (Primary Dx) Discharge Disposition: Home Social History Tobacco Use Types Packs/Day Years Used Date Smoking Tobacco: Every Day Cigarettes 0.5 31 Started: 04/2022 Smokeless Tobacco: Never Alcohol Use Standard Drinks/Week Comments Not Currently 0 (1 standard drink = 0.6 oz pur e alcohol) [facility] Utilities Answer Date Recorded In the past 12 months has e electric, gas, oil, or water company threatened to shut off services in your home? No 01/16/2024 PRAPARE - Transportation Answer Date Re corded In the past 12 months, has l ack of transportation kept you from medical appointments or from getting medications? No 01/01 In the past 12 months, has l ack of transportation kept you from meetings, work, or from getting things needed for daily living? No 01/16/2024 Housing Instability Answer Date Recorde d Are you worried or concerned that in the next two months you may not have stable housing that you own, rent or stay in as a part of a household? No 01/16/2024 Childcare Answer Date Recorded Childcare Unknown 11/12/2018 Employment Answer Date Recorded Employment Unknown 11/12/2018 Hunger Screening Answer Date Recorded Within the past 12 months we worried whether our food would run out before we got money to buy more. Never True 01/15/2025 Within the past 12 months th e food we bought just didn't last and we didn't have money to get more. Never True 01/15/2025 Purpose - Life Answer Date Recorded Purpose and direction in life Unknown Comments No Sex and Gender Information Value Date Recorded Sex Assigned at Not on file Legal Sex Female 12:01 PM EDT Gender Identity Not on file Sexual Orientation Not on file documented as of this encounter Last Filed Vital Signs Vital Sign Reading Time Taken Comments Blood Pressure 127/64 01/15/2025 4:00 PM EDT Pulse 61 01/15/2025 5:15 PM EDT Temperature 37 C (98.6 F) 01/15/2025 12:54 PM EDT Respiratory Rate 15 01/15/2025 4:00 PM EDT Oxygen Saturation 97% 01/15/2025 4:45 PM EDT Inhaled Oxygen Concentration - - Weight - - Height - - Body Mass Index - - documented in this encounter Discharge Instructions * Discharge Instructions* José Shine, DO - 01/15/2025 4:51 PM EDT Please read the attached papers for more information. Please understand that at this time there is no evidence for a more serious underlying process thatrequires emergent surgical intervention or hospital admission, but that early in the process of an illness or injury, an emergency department evaluation can be falsely reassuring. Also, it is impossible to address all aspects of your healthcare in one visit and emergency medical evaluations do not take the place of regular medical care. Your diagnosis today is a provisional one based on information available to the Emergency Physician. The diagnosis may change as more information becomes available to your private physician. If you develop any new, worsening, or concerning symptoms of illness or injury please return here or to the nearest Emergency Department for further care. Otherwise, youshould contact your family doctor to arrange follow up within the next few days. * Attachments The following attachments cannot be sent through Care Everywhere. * Syncope (fainting) ??? Discharge instructions (Tongan) documented in this encounter Medications at Time of Discharge aspirin 81 mg Take 1 tablet (81 mg total) by mouth in the morning. calcium carbonate-vitami n D3 (OSCAL 500 + D) 500 mg(1,250mg) -200 units per tablet Take 1 tablet by mouth in the morning and 1 tablet in the evening. Take with meals. carvediloL (COREG) 12.5 mg tablet Take 1 tablet (12.5 mg total) by mouth in the morning and 1 tablet (12.5 mg total) in the evening. Take with meals. 11/03/2022 cholecalciferol, vitamin D3, 2,000 units tablet Take 1 tablet (2,000 Units total) by mouth in the morning. doxycycline (DORYX) 100 MG EC tablet Take 1 tablet (100 mg total) by mouth in the morning and 1 tablet (100 mg total) before bedtime. furosemide (LASIX) 20 mg tablet Take 1 tablet (20 mg total) by mouth daily. 10/24/2022 gabapentin (NEURONTIN) 600 mg tablet Take 1 tablet (600 mg total) by mouth 3 (three) times a day. 10/24/2022 insulin glargine (LANTUS, SEMGLEE) 100 unit/mL (3 mL) insulin pen Inject 15 Units under the skin in the morning and 15 Units before bedtime. 15 mL 01/22/2024 insulin lispro (HumaLOG) 100 unit/mL insulin pen Inject 2-10 Units under the skin in the morning and 2-10 Units at noon and 2-10 Units in the evening. Inject with meals. Daytime hyperglycemia dosing.For blood glucose 151-200 mg/dL, give 2 units. 201-250 mg/dL, give 4 units. 251-300 mg/dL, give 6 units. 301-350 mg/dL, give 8 units.351-400 mg/dL, give 10 units.. 15 mL 01/22/2024 insulin lispro (HumaLOG) 100 unit/mL insulin pen Inject 2-8 Units under the skin nightly. Bedtime hyperglycemia dosing.For blood glucose 201-250 mg/dL, give 2 units. 251-300 mg/dL, give 4 units. e 301-350 mg/dL, give 6 units.351-400 mg/dL, give 8 units. 15 mL 01/22/2024 JARDIANCE 25 mg tablet tablet Take 1 tablet (25 mg total) by mouth in the morning. 11/06/2022 losartan (COZAAR) 100 mg tablet Take 1 tablet (100 mg total) by mouth in the morning. 10/24/2022 pantoprazole (PROTONIX) 40 mg EC tablet Take 1 tablet (40 mg total) by mouth every morning before breakfast. 10/24/2022 PARoxetine (PAXIL) 10 mg tablet Take 2 tablets (20 mg total) by mouth in the morning. 10/24/2022 potassium chloride (KLOR-CON SPRINKLE) 10 MEQ CR capsule Take 1 capsule (10 mEq total) by mouth in the morning. rivaroxaban (XARELTO) 20 mg tablet tablet Take 1 tablet (20 mg total) by mouth in the morning. rosuvastatin (CRESTOR) 5 mg tablet Take 1 tablet (5 mg total) by mouth nightly. 06/27/2022 spironolactone (ALDACTONE) 25 mg tablet Take 2 tablets (50 mg total) by mouth in the morning and at bedtime. 06/27/2022 documented as of this encounter ED Notes * José Shine, DO - 01/15/2025 1:48 PM EDT Images from the original note were not included. [facility] - EMERGENCY Pt Name: Denae Dior Birthdate: 1960 Chief Complaint: Chief Complaint Patient presents with Syncope Medical Screening Marilyn Pappas RN (Registered Nurse) Date of Service: 01/15/25 1256 Signed Pt presents to ED via EMS for possible syncope/unresponsive episode. Pt states she last recalls smoking a cigarette while attempt to sit on the trunk of a vehicle. Pt wakened to EMS crew surrounding her. Pt reports chest pain, abdominal pain. Pt denies N/V, fevers/chills. Pt a+ox3, drowsy at time of arrival. History of Present Illness: This is a 64-year-old female who states he was sitting on her car and she passed out after smoking a cigarette. She has been dizzy. She is facing eviction from her apartment. So there has been a little bit of stress. She has had loose stools. No nausea or vomiting but a lot of belching. No one sickat home she is the only 1 there. No fever chills. Patient states she had an episode like this in the past and nothing really was found. She states she has taken all her meds. Past Medical History: Past Medical History: Diagnosis Date A-fib ([facility]) Arthritis COPD (chronic obstructive pulmonary disease) ([facility]) Depression Diabetes mellitus ([facility]) GERD (gastroesophageal reflux disease) Hyperlipidemia Hypertension Irregular heartbeat Sleep apnea TIA (transient ischemic attack) Past Surgical History: Past Surgical History: Procedure Laterality Date APPENDECTOMY CHOLECYSTECTOMY HYSTERECTOMY Family History: No family history on file. Social History: Social History Socioeconomic History Marital status: Tobacco Use Smoking status: Every Day Current packs/day: 0.50 Average packs/day: 0.5 packs/day for 31.0 years (15.5 total pack years) Types: Cigarettes Start date: 04/2022 Smokeless tobacco: Never Substance and Sexual Activity Alcohol use: Not Currently Drug use: Never Sexual activity: Never Social Drivers of Health Financial Resource Strain: High Risk (12/14/2024) Received from [facility] Overall Financial Resource Strain (CARDIA) Difficulty of Paying Living Expenses: Hard Food Insecurity: No Food Insecurity (01/15/2025) Hunger Screening Food Insecurity - Worry: Never True Food Insecurity - Inability: Never True Recent Concern: Food Insecurity - Food Insecurity Present (12/14/2024) Received from [facility] Hunger Vital Sign Worried About Running Out of Food in the Last Year: Sometimes true Ran Out of Food in the Last Year: Sometimes true Transportation Needs: Unmet Transportation Needs (12/14/2024) Received from [facility] PRAPARE - Transportation Lack of Transportation (Medical): Yes Lack of Transportation (Non-Medical): Yes Physical Activity: Inactive (12/14/2024) Received from [facility] Exercise Vital Sign Days of Exercise per Week: 0 days Minutes of Exercise per Session: 0 min Stress: Stress Concern Present (12/14/2024) Received from [facility] - Occupational Stress Questionnaire Feeling of Stress : Very much Social Connections: Unknown (12/14/2024) Received from [facility] Social Connection and Isolation Panel [NHANES] Frequency of Communication with Friends and Family: Patient declined Frequency of Social Gatherings with Friends and Family: Never Attends Yarsani Services: Never Active Member of Clubs or Organizations: No Marital Status: Interpersonal Safety: Not At Risk (12/14/2024) Received from [facility] Humiliation, Afraid, Rape, and Kick questionnaire Fear of Current or Ex-Partner: No Emotionally Abused: No Physically Abused: No Sexually Abused: No Housing Instability: High Risk (12/14/2024) Received from [facility] Housing Stability Vital Sign Unable to Pay for Housing in the Last Year: Yes Number of Times Moved in the Last Year: 0 Homeless in the Last Year: No Review of Systems: Review of Systems Constitutional: Negative. HENT: Negative. Eyes: Negative. Respiratory: Negative. Cardiovascular: Negative. Gastrointestinal: Negative. Genitourinary: Negative. Negative for decreased urine volume, dyspareunia, flank pain, menstrual problem, pelvic pain, vaginal bleeding, vaginal discharge and vaginal pain. Musculoskeletal: Negative. Skin: Negative. Neurological: Positive for dizziness and syncope. Negative for tremors, seizures, facial asymmetry,speech difficulty, weakness, light-headedness, numbness and headaches. Hematological: Negative. Psychiatric/Behavioral: Negative. Negative for behavioral problems, self-injury and suicidal ideas. Physical Exam: ED Triage Vitals [01/15/25 1254] Temp Heart Rate Resp BP SpO2 37 ??C (98.6 ??F) 61 22 125/52 93 % Temp Source Heart Rate Source Patient Position BP Location FiO2 (%) Oral Monitor Semi-fowlers Left arm -- Vitals: 01/15/25 1530 01/15/25 1545 01/15/25 1600 01/15/25 1621 BP: 116/69 127/64 Temp: TempSrc: Pulse: 56 56 55 57 Resp: (Abnormal) 9 12 15 SpO2: 92% MAP (mmHg): 84 82 Physical Exam Vitals and nursing note reviewed. Constitutional: Appearance: She is well-developed. HENT: Head: Normocephalic and atraumatic. Right Ear: External ear normal. Left Ear: External ear normal. Nose: Nose normal. Eyes: Conjunctiva/sclera: Conjunctivae normal. Pupils: Pupils are equal, round, and reactive to light. Cardiovascular: Rate and Rhythm: Normal rate and regular rhythm. Heart sounds: Normal heart sounds. No murmur heard. No friction rub. Pulmonary: Effort: Pulmonary effort is normal. Breath sounds: Normal breath sounds. Abdominal: General: Bowel sounds are normal. Palpations: Abdomen is soft. Genitourinary: Comments: Not done Musculoskeletal: General: Normal range of motion. Cervical back: Normal range of motion and neck supple. Skin: General: Skin is warm. Findings: No rash. Neurological: Mental Status: She is alert and oriented to person, place, and time. Cranial Nerves: No cranial nerve deficit. Motor: No abnormal muscle tone. Coordination: Coordination normal. Deep Tendon Reflexes: Reflexes are normal and symmetric. Reflexes normal. Psychiatric: Behavior: Behavior normal. Thought Content: Thought content does not include homicidal or suicidal ideation. Thought content does not include homicidal or suicidal plan. Judgment: Judgment normal. CT brain without contrast Result Date: 01/15/2025 STUDY: CT HEAD WITHOUT CONTRAST CLINICAL HISTORY: Syncope COMPARISON: January 16, 2024 Procedure: Multi-detector CT performed through the brain without IV contrast. The lack of IV contrast limits evaluation for acute infarct, mass, infectious process,or demyelinating disease.Automated exposure control was utilized. Findings: There is no intracranial hemorrhage, extra-axial fluid collection, mass effect, or hydrocephalus. Morton-white matter differentiation is appropriate. Infarcts and masses may be occult on CT, but grossly no acute infarct identified There is no midline shift. IMPRESSION: * No acute intracranial findings. Consider brain MRI if you suspect occult process. All CT scans at this facility use dose modulation, iterative reconstruction, and/or weight based dosing when appropriate to reduce radiation dose to as low as reasonably achievable. Finalized by Niraj Rowley MD on 01/15/2025 4:29 PM Labs Reviewed CBC WITH AUTO DIFFERENTIAL - Abnormal; Notable for the following components: Result Value RBC Count 5.47 (*) Hemoglobin 16.8 (*) Hematocrit 48.9 (*) All other components within normal limits COMPREHENSIVE METABOLIC PANEL - Abnormal; Notable for the following components: POTASSIUM 3.1 (*) CHLORIDE 97 (*) GLUCOSE 369 (*) All other components within normal limits ACETONE,(BETAHYDROXYBUTYRATE, KETONE) QUANTITATIVE SERUM - Abnormal; Notable for the following components: BETAHYDROXYBUTYRATE 1.14 (*) All other components within normal limits BLOOD GAS, VENOUS - Abnormal; Notable for the following components: pCO2, Venous 55.4 (*) Base, Excess 4.0 (*) HCO3, Venous 31.2 (*) All other components within normal limits POCT NURSING URINE MACROSCOPIC UA - Abnormal; Notable for the following components: POC Urine Leukocyte Esterase Small (*) POC Urine Glucose >=1000 mg/dL (*) POC Urine Blood/HGB Small (*) All other components within normal limits BEDSIDE GLUCOSE - Abnormal; Notable for the following components: Bedside Glucose (POC) 275 (*) All other components within normal limits C-REACTIVE PROTEIN - Normal D-DIMER - Normal ETHANOL - Normal DRUG SCREEN, URINE - Normal MAGNESIUM - Normal LACTATE W/ REFLEX - Normal Narrative: Result did not trigger repeat Lactate, re-order if needed. TROPONIN I, HIGH SENSITIVITY 0 HOUR - Normal TROP I, HIGH SENSITIVITY 1 HOUR - Normal URINE CULTURE ER EXTRA URINE ER EXTRA URINE CULTURE TROPONIN I, HIGH SENSITIVITY ORDER SET Narrative: The following orders were created for panel order Troponin I, High Sensitivity. Procedure Abnormality Status --------- ------ Troponin I, High Sensiti...[[id number]] Normal Final result Troponin I, High Sensiti...[[id number]] Normal Final result Please view results for these tests on the individual orders. ER EXTRA URINE MARBLE BLOOD GAS, VENOUS POCT NURSING URINE MACROSCOPIC UA Procedure: Procedures Re-evaluation: 1:58 p.m. at this point I am going to do some blood work on this patient she has received some fluids I am going to go ahead and run fluids at a low rate for her to rehydrate her. Of AFib but she is anticoagulated. 4:50 p.m. I briefed this patient on all her results our plan is for discharge home with follow up with her PCP I do not think there is really anything different were going to add to her investigationfor syncope. Available until Saturday and that can be done as an outpatient carotid scanning can alsobe done as an outpatient. Patient is anticoagulated as well. Medical Decision Making Amount and/or Complexity of Data Reviewed Labs: ordered. Radiology: ordered. ECG/medicine tests: ordered. Risk OTC drugs. Prescription drug management. ED Course: Clinical Impressions as of 01/15/251651 Syncope, unspecified syncope type . ED Disposition ED Disposition: Discharge Date/Time: SatJan 15, 2025 4:52 PM Comment: At the time of discharge, the plan has been discussed with the patient regarding the diagnosis and prognosis. All questions have been answered. Verbal discharge instructions were discussed with the patient. The patient has been advised to follow up w ith their Primary Care Provider 3 days.The patient was also instructed to return to the ED if their symptoms change, worsen, new symptoms arise or if they have any additional concerns. . Please note that portions of this note were completed with a voice recognition program. Efforts were made to edit the dictations but occasionally words are mis-transcribed. José Shine DO 01/15/25 1359 José Shine, 01/15/25 1652 * Marilyn Pappas RN - 01/15/2025 12:56 PM EDT Pt presents to ED via EMS for possible syncope/unresponsive episode. Pt states she last recalls smoking a cigarette while attempt to sit on the trunk of a vehicle. Pt wakened to EMS crew surrounding her. Pt reports chest pain, abdominal pain. Pt denies N/V, fevers/chills. Pt a+ox3, drowsy at time of arrival. documented in this encounter Plan of Treatment Not on file documented as of this encounter Goals Goal Patient Goal Type Associated Problems Recent Progress Patient-Stated? Author SNF General Yes Oralia Barnett RN Note: Evaluation of progress towards goal: Patient is agreeable to SNF for therapy. documented as of this encounter Procedures Procedure Name Priority Date/Time Associated Diagnosis Comments BLOOD GAS, VENOUS STAT 01/15/2025 4:[address] BRAIN WO CONT STAT 01/15/2025 4:19 PM EDT BEDSIDE GLUCOSE Routine 01/15/2025 3:42 PM EDT POCT NURSING URINE MACROSCOPIC UA Routine 01/15/2025 3:13 PM EDT ER EXTRA URINE MARBLE STAT 01/15/2025 3:02 PM EDT URINE CULTURE STAT 01/15/2025 3:02 PM EDT ER EXTRA URINE CULTURE STAT 01/15/2025 3:01 PM EDT ER EXTRA URINE STAT 01/15/2025 3:01 PM EDT DRUG SCREEN, URINE STAT 01/15/2025 3: 01 PM EDT TROP I, HIGH SENSITIVITY 1 HOUR STAT 01/15/2025 2:21 PM EDT LACTATE W/ REFLEX STAT 01/15/2025 2:2 1 PM EDT ACETONE,(BETAHYDROXYB UTYRATE, KETONE) QUANTITATIVE SERUM STAT Add-on 01/15/2025 2:21 PM EDT ECG 12-LEAD STAT 01/15/2025 1:06 PM EDT TROPONIN I, HIGH SENSITIVITY 0 HOUR STAT 01/15/2025 1:05 PM EDT TROPONIN I, HIGH SENSITIVITY 0 HOUR STAT 01/15/2025 1:05 PM EDT CBC WITH AUTO DIFFERENTIAL STAT 01/15/2025 1:05 PM EDT D-DIMER STAT 01/15/2025 1:05 PM EDT C-REACTIVE PROTEIN STAT 01/15/2025 1: 05 PM EDT MAGNESIUM STAT 01/15/2025 1:05 PM EDT ETHANOL STAT 01/15/2025 1:05 PM EDT COMPREHENSIVE METABOLIC PANEL STAT 01/15/2025 1:05 PM EDT documented in this encounter Results * (ABNORMAL) Blood gas, venous (01/15/2025 4:21 PM EDT) Sample type VENOUS 01/15/2025 4:24 PM EDT [facility] pH, Venous 7.359 7.320 - 7.420 01/15/2025 4:24 PM EDT [facility] pCO2, Venous 55.4(H) 35.0 - 50.0 mmHg 01/15/2025 4:24 PM EDT [facility] pO2, Venous 35 30 - 50 mmHg 01/15/2025 4:24 PM EDT [facility] Base, Excess 4.0(H) 0.0 - 2.0 mmol/L 01/15/2025 4:24 PM EDT [facility] HCO3, Venous 31.2(H) 20.0 - 24.0 mmol/L 01/15/2025 4:24 PM EDT [facility] %O2 Saturation, Venous 64.0 % 01/15/2025 4:24 PM EDT [facility] Kingsley's test N/A 01/15/2025 4:24 PM EDT [facility] Sample site N/A 01/15/2025 4:24 PM EDT [facility] Insp. O2 conc. 21 % 01/15/2025 4:24 PM EDT [facility] Source Of Oxygen Room Air 01/15/2025 4:24 PM EDT [facility] venous Venous blood / Unknown 01/15/2025 4:21 PM EDT 01/15/2025 4:24 PM EDT us José Shine DO LAB BLOOD ORDERABLES Fi nal Result [facility] [address] [place] [address], [place] * CT brain without contrast (01/15/2025 4:19 PM EDT) Anatomical Region Laterality Modality Neuro, Head, Head and Neck, Neuro Covera N/A Computed Tomography 01/15/2025 4:28 PM EDT Narrative 01/15/2025 4:29 PM EDT STUDY: CT HEAD WITHOUT CONTRAST CLINICAL HISTORY: Syncope COMPARISON: January 16, 2024 Procedure: Multi-detector CT performed through the brain without IV contrast. The lack of IV contrast limits evaluation for acute infarct, mass, infectious process,or demyelinating disease.Automated exposure control was utilized. Findings: There is no intracranial hemorrhage, extra-axial fluid collection, mass effect, or hydrocephalus. Morton-white matter differentiation is appropriate. Infarcts and masses may be occult on CT, but grossly no acute infarct identified There is no midline shift. IMPRESSION: * No acute intracranial findings. Consider brain MRI if you suspect occult process. All CT scans at this facility use dose modulation, iterative reconstruction, and/or weight based dosing when appropriate to reduce radiation dose to as low as reasonably achievable. Finalized by Niraj Rowley MD on 01/15/2025 4:29 PM Procedure Note Niraj Rowley MD - 01/15/2025 STUDY: CT HEAD WITHOUT CONTRAST CLINICAL HISTORY: Syncope COMPARISON: January 16, 2024 Procedure: Multi-detector CT performed through the brain without IV contrast. Thelack of IV contrast limits evaluation for acute infarct, mass, infectiousprocess,or demyelinating disease.Automated exposure control wasutilized. Findings: There is no intracranial hemorrhage, extra-axial fluid collection, masseffect, or hydrocephalus. Morton-white matter differentiation is appropriate. Infarcts and masses may be occult on CT, but grossly no acute infarctidentified There is no midline shift. IMPRESSION: * No acute intracranial findings. Consider brain MRI if you suspectoccult process. All CT scans at this facility use dose modulation, iterativereconstruction, and/or weight based dosing when appropriate to reduceradiation dose to as low as reasonably achievable. Finalized by Niraj Rowley MD on 01/15/2025 4:29 PM José Shine DO IMG CT ORDERABLES Final Result * (ABNORMAL) Bedside Glucose *Place/Obtain serum glucose if >500 per glucometer. (01/15/2025 3:42 PM EDT) Bedside Glucose (POC) 275(H) 65 - 99 mg/dL 01/15/2025 3:44 PM EDT [facility] arterial/capilla ry 01/15/2025 3:42 PM EDT 01/15/2025 3:44 PM EDT José Shine DO POINT OF CARE TEST ORDE RABLES Final Result [facility] [address] [place] [address], * (ABNORMAL) POCT Nursing Urine Macroscopic UA (01/15/2025 3:13 PM EDT) POC Urine Specific [place] 1.010 1.010, 1.015, 1.020, 1.025 01/15/2025 3:04 PM EDT [facility] POC Urine Leukocyte Esterase Small(A) Negative 01/15/2025 3:04 PM EDT [facility] POC Urine Nitrite Negative Negative 01/15/2025 3:04 PM EDT [facility] POC Urine pH 5.5 5.0, 6.0, 6.5, 7.0, 7.5, 8.0, 8.5, 5.5 01/15/2025 3:04 PM EDT [facility] Urine Protein Negative Negative 01/15/2025 3:04 PM EDT [facility] Urine Glucose >=1000 mg/dL(A) Negative 01/15/2025 3:04 PM EDT [facility] Urine Ketones Negative Negative 01/15/2025 3:04 PM EDT [facility] Urine Urobilinogen 0.2 E.U./dL 01/15/2025 3:04 PM EDT [facility] Urine Bilirubin Negative Negative 01/15/2025 3:04 PM EDT [facility] POC Urine Blood/HGB Small(A) Negative 01/15/2025 3:04 PM EDT [facility] Urine 01/15/2025 3:13 PM EDT 01/15/2025 3:04 PM EDT José Shine DO POINT OF CARE TEST ORDE BETTE Final Result [facility] [address] [place] [address], [place] * (ABNORMAL) Urine Culture Urine, Clean Catch Midstream (01/15/2025 3:02 PM EDT) Pathologist [facility] CULTURE RESULTS >100,000 CFU/mL Escherichia coli(A) 01/20/2025 8:42 AM EDT [facility] CULTURE RESULTS >100,000 CFU/mL Escherichia coli(A) 01/20/2025 8:42 AM EDT [facility] Comment:Variant Urine Urine specimen collection, clean catch / Unknown 01/15/2025 3:02 PM EDT 01/15/2025 3:09 PM EDT Narrative [facility] - 01/20/2025 8:42 AM EDT Along with <10,000 CFU/mL Normal Urogenital Minda. Organism Antibiotic Method Susceptibility Escherichia coli Ampicillin >=32.0: Resistant Escherichia coli AMP/SULBACTAM >=32.0: Resistant Escherichia coli PIPERACIL/TAZOBACTAM 16: Susceptible (dose dependent) Escherichia coli Cefazolin (non-urinary) 8.0: Resistant Escherichia coli Cefazolin (urinary) 8.0: Susceptible Escherichia coli Ceftriaxone <=0.25: Susceptible Escherichia coli Gentamicin <=1.0: Susceptible Escherichia coli Ciprofloxacin >=4.0: Resistant Escherichia coli Levofloxacin >=8.0: Resistant Escherichia coli Nitrofurantoin <=16.0: Susceptible Escherichia coli Trimethoprim + Sulfamethoxazole >=16.0: Resistant Escherichia coli Ampicillin >=32.0: Resistant Escherichia coli AMP/SULBACTAM >=32.0: Resistant Escherichia coli PIPERACIL/TAZOBACTAM 8.0: Susceptible Escherichia coli Cefazolin (non-urinary) 4.0: Intermediate Escherichia coli Cefazolin (urinary) 4.0: Susceptible Escherichia coli Ceftriaxone <=0.25: Susceptible Escherichia coli Gentamicin <=1.0: Susceptible Escherichia coli Ciprofloxacin >=4.0: Resistant Escherichia coli Levofloxacin >=8.0: Resistant Escherichia coli Nitrofurantoin <=16.0: Susceptible Escherichia coli Trimethoprim + Sulfamethoxazole >=16.0: Resistant José Shine DO MICROBIOLOGY - GENERAL ORDERABLES Final Result [facility] [address] [place] [address], [place] [phone] * Extra Urine [place] (01/15/2025 3:02 PM EDT) Extra Tube Auto Resulted 01/15/2025 5:01 PM EDT [facility] Urine Urine specimen collection, clean catch / Unknown 01/15/2025 3:02 PM EDT 01/15/2025 3:09 PM EDT José Shine DO URINE ORDERABLES Final Result [facility] [address] [place] [address], [place] * Extra Urine Culture (01/15/2025 3:01 PM EDT) Extra Tube Auto Resulted 01/15/2025 4:02 PM EDT [facility] Urine Urine specimen collection, clean catch / Unknown 01/15/2025 3:01 PM EDT 01/15/2025 3:09 PM EDT us José Shine DO URINE ORDERABLES Final Result Performing Organization Address City/[facility]/ZIP Co de Phone Number [address] [place] [address], [place] * Extra Urine (01/15/2025 3:01 PM EDT) Extra Tube Auto Resulted 01/15/2025 4:02 PM EDT [facility] Urine Urine specimen collection, clean catch / Unknown 01/15/2025 3:01 PM EDT 01/15/2025 3:09 PM EDT us José Shine DO URINE ORDERABLES Final Result Performing Organization Address [facility] de Phone Number [address] [place] [address], [place] * Drug Screen, Urine (01/15/2025 3:01 PM EDT) AMPHETAMINE/METHAMP Negative Negative 01/15 3:55 PM EDT [facility] Comment:AMPH/METH screening cut off = 1000 ng/mL COCAINE METABOLITE Negative Negative 2024 3:55 PM EDT [facility] Comment:Cocaine screening cu t off value = 300 ng/mL ECSTASY Negative Negative 01/15/2025 3:55 PM EDT [facility] Comment:Ecstasy screening cu t off value = 500 ng/mL METHADONE Negative Negative 01/15/2025 3:55 PM EDT [facility] Comment:Methadone screening cut off value = 300 ng/mL. OPIATES Negative Negative 01/15/2025 3:55 PM EDT [facility] Comment: Opiates screening cut off value = 300 ng/mL This test is used for the detection of codeine, hydrocodone (>1000 ng/mL), morphine and hydromorphone (>900 ng/mL) in urine. OXYCODONE Negative Negative 01/15/2025 3:55 PM EDT [facility] Comment: Oxycodone screening cut off value = 300 ng/mL This test is used for the detection of oxycodone and oxymorphone in urine. PHENCYCLIDINE Negative Negative 01/15/2025 3:55 PM EDT [facility] Comment:Phencyclidine screen ing cut off value = 25 ng/mL CANNABINOIDS Negative Negative 01/15/2025 3:55 PM EDT [facility] Comment:Cannabinoids/THC scr eening cut off value = 50 ng/mL Urine Barbiturates Negative Negative 2024 3:55 PM EDT [facility] Comment:Barbiturates screeni ng cut off value = 200 ng/mL BENZODIAZEPINES Negative Negative 3:55 PM EDT [facility] Comment:Benzodiazepines scre ening cut off value = 200 ng/mL Urine 01/15/2025 3:01 PM EDT 01/15/2025 3:09 PM EDT us José Shine DO URINE ORDERABLES Final Result Performing Organization Address City/[facility] Co de Phone Number [address] [place] [address], * (ABNORMAL) Acetone, (BetaHydroxybutyrate, Ketone) quantitative, serum (01/15/2025 2:21 PM EDT) BETAHYDROXYBUTYRATE 1.14(H) 0.02 - 0.27 mmol/L 01/15/2025 4:47 PM EDT [facility] Blood Venous blood / Unknown Venipuncture / Unknown 01/15/2025 2:21 PM EDT 01/15/2025 2:25 PM EDT us José Shine DO LAB BLOOD ORDERABLES Fi nal Result Performing Organization Address City/[facility] Co de Phone Number [address] [place] [address], [place] * Troponin I, High Sensitivity 1 Hour (01/15/2025 2:21 PM EDT) TROPONIN I, HIGH SENSITIVITY 4 <16 ng/L 01/15/2025 3:01 PM EDT [facility] Blood Venous blood / Unknown Venipuncture / Unknown 01/15/2025 2:21 PM EDT 01/15/2025 2:25 PM EDT us José Shine DO LAB BLOOD ORDERABLES Fi nal Result Performing Organization Address City/[facility]/ZIP Co de Phone Number [address] [place] [address], [place] * Lactate w/ Reflex (01/15/2025 2:21 PM EDT) Pathologist [facility] LACTATE W/REFLEX 1.1 0.4 - 2.0 mmol/L 01/15/2025 2:45 PM EDT [facility] Blood Venous blood / Unknown Venipuncture / Unknown 01/15/2025 2:21 PM EDT 01/15/2025 2:23 PM EDT Narrative [facility] - 01/15/2025 2:45 PM EDT Result did not trigger repeat Lactate, re-order if needed. us José Shine DO LAB BLOOD ORDERABLES Fi nal Result Performing Organization Address City/[facility]/ZIP Co de Phone Number [address] [place] [address], [place] * ECG 12 lead (01/15/2025 1:06 PM EDT) 01/15/2025 1:06 PM EDT Narrative [facility] - 01/15/2025 4:52 PM EDT us José Shine DO ECG ORDERABLES Final R esult Performing Organization Address City/[facility]/ZIP Co de Phone Number [facility] * Troponin I, High Sensitivity 0 Hour (01/15/2025 1:05 PM EDT) Pathologist [facility] TROPONIN I, HIGH SENSITIVITY 4 <16 ng/L 01/15/2025 2:52 PM EDT [facility] Blood Venous blood / Unknown Venipuncture / Unknown 01/15/2025 1:05 PM EDT 01/15/2025 2:25 PM EDT us José Shine DO LAB BLOOD ORDERABLES Fi nal Result Performing Organization Address City/[facility]/ZIP Co de Phone Number [address] [place] [address], [place] * Magnesium (01/15/2025 1:05 PM EDT) [facility] MAGNESIUM 1.8 1.8 - 2.6 mg/dL 01/15/2025 2:49 PM EDT [facility] Blood Venous blood / Unknown Venipuncture / Unknown 01/15/2025 1:05 PM EDT 01/15/2025 2:25 PM EDT us José Shine DO LAB BLOOD ORDERABLES Fi nal Result Performing Organization Address City/[facility] Co de Phone Number [address] [place] [address], [place] * Ethanol (01/15/2025 1:05 PM EDT) Pathologist [facility] ETHANOL <0.010 <=0.080 g/dL 01/15/2025 2:49 PM EDT [facility] Comment: This report is intended for use in clinical monitoring or management of patients. Blood Venous blood / Unknown Venipuncture / Unknown 01/15/2025 1:05 PM EDT 01/15/2025 2:25 PM EDT us José Shine DO LAB BLOOD ORDERABLES Fi nal Result Performing Organization Address [facility] Co de Phone Number [address] [place] [address], [place] * D-Dimer (01/15/2025 1:05 PM EDT) [facility] D DIMER <150 1 - 255 ug/mL 01/15/2025 3:14 PM EDT [facility] Comment:Results <255 ng/mL D DU: The presensence of a VTE can safely be excluded with a negative D-Dimer result and Wells score. A negative result doesn't exclude the possibility of DIC. The test should be repeated along with other diagnostic tests if the patient's symptoms persist or worsen. Blood Venous blood / Unknown Venipuncture / Unknown 01/15/2025 1:05 PM EDT 01/15/2025 2:25 PM EDT José Shine DO LAB BLOOD ORDERABLES Fi nal Result Performing Organization Address [facility] Co de Phone Number [address] [place] [address], [place] * C-reactive protein (01/15/2025 1:05 PM EDT) [facility] C REACTIVE PROTEIN <0.5 <=0.7 mg/dL 01/15/2025 2:49 PM EDT [facility] Blood Venous blood / Unknown Venipuncture / Unknown 01/15/2025 1:05 PM EDT 01/15/2025 2:25 PM EDT us José Shine DO LAB BLOOD ORDERABLES Fi nal Result Performing Organization Address [facility] Co de Phone Number [address] [place] [address], [place] * (ABNORMAL) Comprehensive metabolic panel (01/15/2025 1:05 PM EDT) [facility] SODIUM 136 134 - 146 mmol/L 01/15/2025 2:49 PM EDT [facility] POTASSIUM 3.1(L) 3.5 - 5.0 mmol/L 01/15/2025 2:49 PM EDT [facility] CHLORIDE 97(L) 98 - 109 mmol/L 01/15/2025 2:49 PM EDT [facility] CARBON DIOXIDE 29 22 - 32 mmol/L 01/15/2025 2:49 PM EDT [facility] ANION GAP 10 5 - 15 mmol/L 01/15/2025 2:49 PM EDT [facility] BLOOD UREA NITROGEN 9 5 - 27 mg/dL 01/15/2025 2:49 PM EDT [facility] CREATININE 0.73 0.40 - 1.00 mg/dL 01/15/2025 2:49 PM EDT [facility] Comment:METHOD TRACEABLE TO IDCT STANDARD GLUCOSE 369(H) 65 - 99 mg/dL 01/15/2025 2:49 PM EDT [facility] CALCIUM 8.8 8.5 - 10.5 mg/dL 01/15/2025 2:49 PM EDT [facility] TOTAL PROTEIN 6.4 6.0 - 8.0 g/dL 01/15/2025 2:49 PM EDT [facility] ALBUMIN 3.3 3.2 - 5.3 g/dL 01/15/2025 2:49 PM EDT [facility] ALKALINE PHOSPHATASE 83 39 - 130 U/L 01/15/2025 2:49 PM EDT [facility] AST 15 <=41 U/L 01/15/2025 2:49 PM EDT [facility] ALT 13 <=31 U/L 01/15/2025 2:49 PM EDT [facility] BILIRUBIN,TOTAL 0.6 0.3 - 1.2 mg/dL 01/15/2025 2:49 PM EDT [facility] EGFR Non-Race Dependent >90 >=60 ml/min/1.7 3sq.m 01/15/2025 2:49 PM EDT [facility] Comment: eGFR not reported due to non-numeric value for Creatinine. Reported eGFR is based on the CKD-EPI 2020 equation that does not use a race coefficient. Blood Venous blood / Unknown Venipuncture / Unknown 01/15/2025 1:05 PM EDT 01/15/2025 2:25 PM EDT José Shine DO LAB BLOOD ORDERABLES Fi nal Result [facility] [address] [place] [address], [place] * (ABNORMAL) CBC auto differential (01/15/2025 1:05 PM EDT) WBC 8.7 4 - 11 x10E9/L 01/15/2025 2:31 PM EDT [facility] RBC Count 5.47(H) 3.8 - 5.2 X10E12/L 01/15/2025 2:31 PM EDT [facility] Hemoglobin 16.8(H) 11.7 - 15.5 g/dL 01/15/2025 2:31 PM EDT [facility] Hematocrit 48.9(H) 35 - 47 % 01/15/2025 2:31 PM EDT [facility] MCV 89 80 - 100 fL 01/15/2025 2:31 PM EDT [facility] MCH 30.7 27 - 34 pg 01/15/2025 2:31 PM EDT [facility] MCHC 34.4 32 - 36 g/dL 01/15/2025 2:31 PM EDT [facility] RDW 14.1 11.5 - 15 % 01/15/2025 2:31 PM EDT [facility] Platelet Count 311 150 - 450 X10E9/L 01/15/2025 2:31 PM EDT [facility] MPV 8.8 7 - 12 fL 01/15/2025 2:31 PM EDT [facility] Neutrophils % 67.8 % 01/15/2025 2:31 PM EDT [facility] Lymphocytes % 23.8 % 01/15/2025 2:31 PM EDT [facility] Monocytes % 7.1 % 01/15/2025 2:31 PM EDT [facility] Eosinophils % 0.7 % 01/15/2025 2:31 PM EDT [facility] Basophils % 0.6 % 01/15/2025 2:31 PM EDT [facility] Neutrophils Absolute (A) 5.9 1.5 - 6.6 10*3/uL 01/15/2025 2:31 PM EDT [facility] Lymphocytes Absolute 2.1 1.0 - 3.5 10*3/uL 01/15/2025 2:31 PM EDT [facility] Monocytes Absolute 0.6 0.0 - 0.9 10*3/uL 01/15/2025 2:31 PM EDT [facility] Eosinophils Absolute 0.1 0.0 - 0.4 10*3/uL 01/15/2025 2:31 PM EDT [facility] Basophils Absolute 0.1 0.0 - 0.2 10*3/uL 01/15/2025 2:31 PM EDT [facility] Differential Type AUTOMATED DIFFERENTIAL 01/15/2025 2:31 PM EDT [facility] Blood Venous blood / Unknown Venipuncture / Unknown 01/15/2025 1:05 PM EDT 01/15/2025 2:25 PM EDT us José Shine DO LAB BLOOD ORDERABLES Fi nal Result [facility] [address] [place] [address], documented in this encounter Visit Diagnoses Diagnosis Syncope, unspecified syncope type- Primary documented in this encounter Administered Medications Inactive Administered Medications - up to 3 most recent administrations Medication Order MAR Action Action Date Dose Rate Site insulin regular (HumuLIN R,NovoLIN R) injection 4 Units 4 Units, subcutaneous, Once, On Sat01/15/25 at 1535, For 1 dose, Look-alike/sound-alike medication - verify indication for use. Prandial/supplemental insulin. Stable for 28 days at room temperature. Given 01/15/2025 3:41 PM EDT 4 Units Left Arm potassium chloride (KLOR-CON M 20) CR tablet 40 mEq 40 mEq, oral, Once, On Sat01/15/25 at 1530, For 1 dose, Do not crush or chew. Given 01/15/2025 3:36 PM EDT 40 mEq sodium chloride 0.9 % flush 3 mL 3 mL, intravenous, As needed, line care, before and after each intermittent use, Starting on Sat01/15/25 at 1355 sodium chloride 0.9 % infusion 75 mL/hr, intravenous, Continuous, Starting on Sat01/15/25 at 1400, For 1 day New Bag 01/15/2025 2:59 PM EDT 75 mL/hr 75 mL/hr documented in this encounter Active and Recently Administered Medications Times are shown in EDT. Scheduled Medication Order 01/13/2025 01/14/2025 01/15/2025 insulin regular (HumuLIN R,NovoLIN R) injection 4 Units (COMPLETED) 4 Units, subcutaneous, Once, On Sat01/15/25 at 1535, For 1 dose, Look-alike/sound-alike medication - verify indication for use. Prandial/supplemental insulin. Stable for 28 days at room temperature. 1541 (Given - Provid er: Marilyn Pappas RN) potassium chloride (KLOR-CON M 20) CR tablet 40 mEq (COMPLETED) 40 mEq, oral, Once, On Sat01/15/25 at 1530, For 1 dose, Do not crush or chew. 1536 (Given - Provid er: Marilyn Pappas RN) Continuous Medication Order 01/13/2025 01/14/2025 01/15/2025 sodium chloride 0.9 % infusion 75 mL/hr, intravenous, Continuous, Starting on Sat01/15/25 at 1400, For 1 day 1459 (New Bag - Prov ider: Marilyn Pappas RN)1710 (Stop Bag - Provider: Marilyn Pappas RN) PRN Medication Order 01/13/2025 01/14/2025 01/15/2025 sodium chloride 0.9 % flush 3 mL 3 mL, intravenous, As needed, line care, before and after each intermittent use, Starting on Sat01/15/25 at 1355 documented in this encounter Care Teams Premium Cancellation Clerk Relationship Specialty Start Date End Date Maira Rush, LINE DIRECTOR-QUALITY CONTROL MICROBIOLOGY SUPERVISOR PCP - General Nurse Practitioner 01/16/24 documented as of this encounter
--- OUTSIDE RECORDS SUMMARY | 2025-01-15 12:51 | XMS_ITS | Encounter Summary ---
Author Organization [facility] tem Address [id number] [address] [place] [address] Care Team Providers Care Grocery Department Manager Name Role Phone Maira Rush APRN-DIRECTOR SEARCH Primary Care Provider Reason for Visit * Reason Comments Syncope Medical Screening Encounter Details Date Type Department Care Team (Late st Contact Info) Description 01/15/2025 12:51 PM EDT - 01/15/2025 5:15 PM EDT Emergency [facility] - Emergency [address] [place] [address] José Shine, DO [address] [place] [address] [id number] Syncope, unspecified syncope type (Primary Dx) Discharge Disposition: Home Social History Tobacco Use Types Packs/Day Years Used Date Smoking Tobacco: Every Day Cigarettes 0.5 31 Started: 04/2022 Smokeless Tobacco: Never Alcohol Use Standard Drinks/Week Comments Not Currently 0 (1 standard drink = 0.6 oz pur e alcohol) [facility] Utilities Answer Date Recorded In the past [...] Everywhere. * Syncope (fainting) ??? Discharge instructions (Nicaraguan) documented in this encounter Medications at Time [...] from the original note were not included. [facility] - EMERGENCY Pt Name: Denae Dior Birthdate: [...] History: Past Medical History: Diagnosis Date A-fib ([facility]) Arthritis COPD (chronic obstructive pulmonary disease) ([facility]) Depression Diabetes mellitus ([facility]) GERD (gastroesophageal reflux [...] Resource Strain: High Risk (12/14/2024) Received from [facility] Overall Financial Resource Strain (CARDIA) Difficulty of Paying Living Expenses: Hard Food Insecurity: No Food Insecurity (01/15/2025) Hunger Screening Food Insecurity - Worry: Never True Food Insecurity - Inability: Never True Recent Concern: Food Insecurity - Food Insecurity Present (12/14/2024) Received from [facility] Hunger Vital Sign Worried About Running Out of Food in the Last Year: Sometimes true Ran Out of Food in the Last Year: Sometimes true Transportation Needs: Unmet Transportation Needs (12/14/2024) Received from [facility] PRAPARE - Transportation Lack of Transportation (Medical): Yes Lack of Transportation (Non-Medical): Yes Physical Activity: Inactive (12/14/2024) Received from [facility] Exercise Vital Sign Days of Exercise per Week: 0 days Minutes of Exercise per Session: 0 min Stress: Stress Concern Present (12/14/2024) Received from [facility] [place] of Occupational Health - Occupational Stress Questionnaire Feeling of Stress : Very much Social Connections: Unknown (12/14/2024) Received from [facility] Social Connection and Isolation Panel [NHANES] Frequency of Communication with Friends and Family: Patient declined Frequency of Social Gatherings with Friends and Family: Never Attends Denominational Services: Never Active Member of Clubs or Organizations: No Marital Status: Interpersonal Safety: Not At Risk (12/14/2024) Received from [facility] Humiliation, Afraid, Rape, and Kick questionnaire Fear of Current or Ex-Partner: No Emotionally Abused: No Physically Abused: No Sexually Abused: No Housing Instability: High Risk (12/14/2024) Received from [facility] Housing Stability Vital Sign Unable to Pay [...] Abnormality Status --------- ------ Troponin I, High Sensiti...[[id number]] Normal Final result Troponin I, High Sensiti...[[id number]] Normal Final result Please view results for [...] Sample type VENOUS 01/15/2025 4:24 PM EDT [facility] pH, Venous 7.359 7.320 - 7.420 01/15/2025 4:24 PM EDT [facility] pCO2, Venous 55.4(H) 35.0 - 50.0 mmHg 01/15/2025 4:24 PM EDT [facility] pO2, Venous 35 30 - 50 mmHg 01/15/2025 4:24 PM EDT [facility] Base, Excess 4.0(H) 0.0 - 2.0 mmol/L 01/15/2025 4:24 PM EDT [facility] HCO3, Venous 31.2(H) 20.0 - 24.0 mmol/L 01/15/2025 4:24 PM EDT [facility] %O2 Saturation, Venous 64.0 % 01/15/2025 4:24 PM EDT [facility] Kingsley's test N/A 01/15/2025 4:24 PM EDT [facility] Sample site N/A 01/15/2025 4:24 PM EDT [facility] Insp. O2 conc. 21 % 01/15/2025 4:24 PM EDT [facility] Source Of Oxygen Room Air 01/15/2025 4:24 PM EDT [facility] venous Venous blood / Unknown 01/15/2025 4:21 PM EDT 01/15/2025 4:24 PM EDT us José Shine DO LAB BLOOD ORDERABLES Fi nal Result [facility] [address] [place] [address], [place] * CT brain without contrast (01/15/2025 [...] low as reasonably achievable. Finalized by Niraj oRwley MD on 01/15/2025 4:29 PM Procedure Note [...] - 99 mg/dL 01/15/2025 3:44 PM EDT [facility] arterial/capilla ry 01/15/2025 3:42 PM EDT 01/15/2025 3:44 PM EDT José Shine DO POINT OF CARE TEST ORDE RABLES Final Result [facility] [address] [place] [address], * (ABNORMAL) POCT Nursing Urine Macroscopic UA (01/15/2025 3:13 PM EDT) POC Urine Specific [place] 1.010 1.010, 1.015, 1.020, 1.025 01/15/2025 3:04 PM EDT [facility] POC Urine Leukocyte Esterase Small(A) Negative 01/15/2025 3:04 PM EDT [facility] POC Urine Nitrite Negative Negative 01/15/2025 3:04 PM EDT [facility] POC Urine pH 5.5 5.0, 6.0, 6.5, 7.0, 7.5, 8.0, 8.5, 5.5 01/15/2025 3:04 PM EDT [facility] POC Urine Protein Negative Negative 01/15/2025 3:04 PM EDT [facility] POC Urine Glucose >=1000 mg/dL(A) Negative 01/15/2025 3:04 PM EDT [facility] POC Urine Ketones Negative Negative 01/15/2025 3:04 PM EDT [facility] POC Urine Urobilinogen 0.2 E.U./dL 01/15/2025 3:04 PM EDT [facility] POC Urine Bilirubin Negative Negative 01/15/2025 3:04 PM EDT [facility] POC Urine Blood/HGB Small(A) Negative 01/15/2025 3:04 PM EDT [facility] Urine 01/15/2025 3:13 PM EDT 01/15/2025 3:04 PM EDT José Shine DO POINT OF CARE TEST ORDE BETTE Final Result [facility] [address] [place] [address], [place] * (ABNORMAL) Urine Culture Urine, Clean Catch Midstream (01/15/2025 3:02 PM EDT) Pathologist [facility] CULTURE RESULTS >100,000 CFU/mL Escherichia coli(A) 01/20/2025 8:42 AM EDT [facility] CULTURE RESULTS >100,000 CFU/mL Escherichia coli(A) 01/20/2025 8:42 AM EDT [facility] Comment:Variant Urine Urine specimen collection, clean catch / Unknown 01/15/2025 3:02 PM EDT 01/15/2025 3:09 PM EDT Narrative [facility] - 01/20/2025 8:42 AM EDT Along [...] DO MICROBIOLOGY - GENERAL ORDERABLES Final Result [facility] [address] [place] [address], [place] [phone] * Extra Urine [place] (01/15/2025 3:02 PM EDT) Extra Tube Auto Resulted 01/15/2025 5:01 PM EDT [facility] Urine Urine specimen collection, clean catch / Unknown 01/15/2025 3:02 PM EDT 01/15/2025 3:09 PM EDT José Shine DO URINE ORDERABLES Final Result [facility] [address] [place] [address], [place] * Extra Urine Culture (01/15/2025 3:01 PM EDT) Extra Tube Auto Resulted 01/15/2025 4:02 PM EDT [facility] Urine Urine specimen collection, clean catch / Unknown 01/15/2025 3:01 PM EDT 01/15/2025 3:09 PM EDT us José Shine DO URINE ORDERABLES Final Result Performing Organization Address City/[facility]/ZIP Co de Phone Number [address] [place] [address], [place] * Extra Urine (01/15/2025 3:01 PM EDT) Extra Tube Auto Resulted 01/15/2025 4:02 PM EDT [facility] Urine Urine specimen collection, clean catch / Unknown 01/15/2025 3:01 PM EDT 01/15/2025 3:09 PM EDT us José Shine DO URINE ORDERABLES Final Result Performing Organization Address [facility] de Phone Number [address] [place] [address], [place] * Drug Screen, Urine (01/15/2025 3:01 PM EDT) AMPHETAMINE/METHAMP Negative Negative 01/15 3:55 PM EDT [facility] Comment:AMPH/METH screening cut off = 1000 ng/mL COCAINE METABOLITE Negative Negative 2024 3:55 PM EDT [facility] Comment:Cocaine screening cu t off value = 300 ng/mL ECSTASY Negative Negative 01/15/2025 3:55 PM EDT [facility] Comment:Ecstasy screening cu t off value = 500 ng/mL METHADONE Negative Negative 01/15/2025 3:55 PM EDT [facility] Comment:Methadone screening cut off value = 300 ng/mL. OPIATES Negative Negative 01/15/2025 3:55 PM EDT [facility] Comment: Opiates screening cut off value = 300 ng/mL This test is used for the detection of codeine, hydrocodone (>1000 ng/mL), morphine and hydromorphone (>900 ng/mL) in urine. OXYCODONE Negative Negative 01/15/2025 3:55 PM EDT [facility] Comment: Oxycodone screening cut off value = 300 ng/mL This test is used for the detection of oxycodone and oxymorphone in urine. PHENCYCLIDINE Negative Negative 01/15/2025 3:55 PM EDT [facility] Comment:Phencyclidine screen ing cut off value = 25 ng/mL CANNABINOIDS Negative Negative 01/15/2025 3:55 PM EDT [facility] Comment:Cannabinoids/THC scr eening cut off value = 50 ng/mL Urine Barbiturates Negative Negative 2024 3:55 PM EDT [facility] Comment:Barbiturates screeni ng cut off value = 200 ng/mL BENZODIAZEPINES Negative Negative 3:55 PM EDT [facility] Comment:Benzodiazepines scre ening cut off value = 200 ng/mL Urine 01/15/2025 3:01 PM EDT 01/15/2025 3:09 PM EDT us José Shine DO URINE ORDERABLES Final Result Performing Organization Address City/[facility] Co de Phone Number [address] [place] [address], * (ABNORMAL) Acetone, (BetaHydroxybutyrate, Ketone) quantitative, serum (01/15/2025 2:21 PM EDT) BETAHYDROXYBUTYRATE 1.14(H) 0.02 - 0.27 mmol/L 01/15/2025 4:47 PM EDT [facility] Blood Venous blood / Unknown Venipuncture / Unknown 01/15/2025 2:21 PM EDT 01/15/2025 2:25 PM EDT us José Shine DO LAB BLOOD ORDERABLES Fi nal Result Performing Organization Address City/[facility] Co de Phone Number [address] [place] [address], [place] * Troponin I, High Sensitivity 1 Hour (01/15/2025 2:21 PM EDT) TROPONIN I, HIGH SENSITIVITY 4 <16 ng/L 01/15/2025 3:01 PM EDT [facility] Blood Venous blood / Unknown Venipuncture / Unknown 01/15/2025 2:21 PM EDT 01/15/2025 2:25 PM EDT us José Shine DO LAB BLOOD ORDERABLES Fi nal Result Performing Organization Address City/[facility]/ZIP Co de Phone Number [address] [place] [address], [place] * Lactate w/ Reflex (01/15/2025 2:21 PM EDT) Pathologist [facility] LACTATE W/REFLEX 1.1 0.4 - 2.0 mmol/L 01/15/2025 2:45 PM EDT [facility] Blood Venous blood / Unknown Venipuncture / Unknown 01/15/2025 2:21 PM EDT 01/15/2025 2:23 PM EDT Narrative [facility] - 01/15/2025 2:45 PM EDT Result did not trigger repeat Lactate, re-order if needed. us José Shine DO LAB BLOOD ORDERABLES Fi nal Result Performing Organization Address City/[facility]/ZIP Co de Phone Number [address] [place] [address], [place] * ECG 12 lead (01/15/2025 1:06 PM EDT) 01/15/2025 1:06 PM EDT Narrative [facility] - 01/15/2025 4:52 PM EDT us José Shine DO ECG ORDERABLES Final R esult Performing Organization Address City/[facility]/ZIP Co de Phone Number [facility] * Troponin I, High Sensitivity 0 Hour (01/15/2025 1:05 PM EDT) Pathologist [facility] TROPONIN I, HIGH SENSITIVITY 4 <16 ng/L 01/15/2025 2:52 PM EDT [facility] Blood Venous blood / Unknown Venipuncture / Unknown 01/15/2025 1:05 PM EDT 01/15/2025 2:25 PM EDT us José Shine DO LAB BLOOD ORDERABLES Fi nal Result Performing Organization Address City/[facility]/ZIP Co de Phone Number [address] [place] [address], [place] * Magnesium (01/15/2025 1:05 PM EDT) [facility] MAGNESIUM 1.8 1.8 - 2.6 mg/dL 01/15/2025 2:49 PM EDT [facility] Blood Venous blood / Unknown Venipuncture / Unknown 01/15/2025 1:05 PM EDT 01/15/2025 2:25 PM EDT us José Shine DO LAB BLOOD ORDERABLES Fi nal Result Performing Organization Address City/[facility] Co de Phone Number [address] [place] [address], [place] * Ethanol (01/15/2025 1:05 PM EDT) Pathologist [facility] ETHANOL <0.010 <=0.080 g/dL 01/15/2025 2:49 PM EDT [facility] Comment: This report is intended for use in clinical monitoring or management of patients. Blood Venous blood / Unknown Venipuncture / Unknown 01/15/2025 1:05 PM EDT 01/15/2025 2:25 PM EDT us José Shine DO LAB BLOOD ORDERABLES Fi nal Result Performing Organization Address [facility] Co de Phone Number [address] [place] [address], [place] * D-Dimer (01/15/2025 1:05 PM EDT) [facility] D DIMER <150 1 - 255 ug/mL 01/15/2025 3:14 PM EDT [facility] Comment:Results <255 ng/mL D DU: The [...] ORDERABLES Fi nal Result Performing Organization Address [facility] Co de Phone Number [address] [place] [address], [place] * C-reactive protein (01/15/2025 1:05 PM EDT) [facility] C REACTIVE PROTEIN <0.5 <=0.7 mg/dL 01/15/2025 2:49 PM EDT [facility] Blood Venous blood / Unknown Venipuncture / Unknown 01/15/2025 1:05 PM EDT 01/15/2025 2:25 PM EDT us José Shine DO LAB BLOOD ORDERABLES Fi nal Result Performing Organization Address [facility] Co de Phone Number [address] [place] [address], [place] * (ABNORMAL) Comprehensive metabolic panel (01/15/2025 1:05 PM EDT) [facility] SODIUM 136 134 - 146 mmol/L 01/15/2025 2:49 PM EDT [facility] POTASSIUM 3.1(L) 3.5 - 5.0 mmol/L 01/15/2025 2:49 PM EDT [facility] CHLORIDE 97(L) 98 - 109 mmol/L 01/15/2025 2:49 PM EDT [facility] CARBON DIOXIDE 29 22 - 32 mmol/L 01/15/2025 2:49 PM EDT [facility] ANION GAP 10 5 - 15 mmol/L 01/15/2025 2:49 PM EDT [facility] BLOOD UREA NITROGEN 9 5 - 27 mg/dL 01/15/2025 2:49 PM EDT [facility] CREATININE 0.73 0.40 - 1.00 mg/dL 01/15/2025 2:49 PM EDT [facility] Comment:METHOD TRACEABLE TO IDSC STANDARD GLUCOSE 369(H) 65 - 99 mg/dL 01/15/2025 2:49 PM EDT [facility] CALCIUM 8.8 8.5 - 10.5 mg/dL 01/15/2025 2:49 PM EDT [facility] TOTAL PROTEIN 6.4 6.0 - 8.0 g/dL 01/15/2025 2:49 PM EDT [facility] ALBUMIN 3.3 3.2 - 5.3 g/dL 01/15/2025 2:49 PM EDT [facility] ALKALINE PHOSPHATASE 83 39 - 130 U/L 01/15/2025 2:49 PM EDT [facility] AST 15 <=41 U/L 01/15/2025 2:49 PM EDT [facility] ALT 13 <=31 U/L 01/15/2025 2:49 PM EDT [facility] BILIRUBIN,TOTAL 0.6 0.3 - 1.2 mg/dL 01/15/2025 2:49 PM EDT [facility] EGFR Non-Race Dependent >90 >=60 ml/min/1.7 3sq.m 01/15/2025 2:49 PM EDT [facility] Comment: eGFR not reported due to non-numeric value for Creatinine. Reported eGFR is based on the CKD-EPI 2020 equation that does not use a race coefficient. Blood Venous blood / Unknown Venipuncture / Unknown 01/15/2025 1:05 PM EDT 01/15/2025 2:25 PM EDT José Shine DO LAB BLOOD ORDERABLES Fi nal Result [facility] [address] [place] [address], [place] * (ABNORMAL) CBC auto differential (01/15/2025 1:05 PM EDT) WBC 8.7 4 - 11 x10E9/L 01/15/2025 2:31 PM EDT [facility] RBC Count 5.47(H) 3.8 - 5.2 X10E12/L 01/15/2025 2:31 PM EDT [facility] Hemoglobin 16.8(H) 11.7 - 15.5 g/dL 01/15/2025 2:31 PM EDT [facility] Hematocrit 48.9(H) 35 - 47 % 01/15/2025 2:31 PM EDT [facility] MCV 89 80 - 100 fL 01/15/2025 2:31 PM EDT [facility] MCH 30.7 27 - 34 pg 01/15/2025 2:31 PM EDT [facility] MCHC 34.4 32 - 36 g/dL 01/15/2025 2:31 PM EDT [facility] RDW 14.1 11.5 - 15 % 01/15/2025 2:31 PM EDT [facility] Platelet Count 311 150 - 450 X10E9/L 01/15/2025 2:31 PM EDT [facility] MPV 8.8 7 - 12 fL 01/15/2025 2:31 PM EDT [facility] Neutrophils % 67.8 % 01/15/2025 2:31 PM EDT [facility] Lymphocytes % 23.8 % 01/15/2025 2:31 PM EDT [facility] Monocytes % 7.1 % 01/15/2025 2:31 PM EDT [facility] Eosinophils % 0.7 % 01/15/2025 2:31 PM EDT [facility] Basophils % 0.6 % 01/15/2025 2:31 PM EDT [facility] Neutrophils Absolute (A) 5.9 1.5 - 6.6 10*3/uL 01/15/2025 2:31 PM EDT [facility] Lymphocytes Absolute 2.1 1.0 - 3.5 10*3/uL 01/15/2025 2:31 PM EDT [facility] Monocytes Absolute 0.6 0.0 - 0.9 10*3/uL 01/15/2025 2:31 PM EDT [facility] Eosinophils Absolute 0.1 0.0 - 0.4 10*3/uL 01/15/2025 2:31 PM EDT [facility] Basophils Absolute 0.1 0.0 - 0.2 10*3/uL 01/15/2025 2:31 PM EDT [facility] Differential Type AUTOMATED DIFFERENTIAL 01/15/2025 2:31 PM EDT [facility] Blood Venous blood / Unknown Venipuncture / Unknown 01/15/2025 1:05 PM EDT 01/15/2025 2:25 PM EDT us José Shine DO LAB BLOOD ORDERABLES Fi nal Result [facility] [address] [place] [address], documented in this encounter Visit Diagnoses Diagnosis [...] 1355 documented in this encounter Care Teams Grocery Department Manager Relationship Specialty Start Date End Date Maira Rush, ACUTE CARE ASSISTANT-DIRECTOR SEARCH PCP - General Nurse Practitioner 01/16/24 documented as of this encounter
[2025-01-27] VITALS (40 sets, daily range): BP systolic 106–129; BP diastolic 53–75; PULSE 56–101; TEMP 36.5–36.8; O2SAT 90–100; BMI 27.4; BMI 25.0
--- OUTSIDE RECORDS SUMMARY | 2025-01-27 00:18 | XMS_ITS ---
Author Organization [facility] Address [address] [place] [address] Care Team Providers Care Glass Mold Repairer Name Role Phone Maira Rush NP Unavailable [phone] Brandon Monterroso MD Primary Care Provider [phone] Maira Rush DRYWALL WORKER Unavailable [phone] Diabetes Self-Management Education Status:Enrolled (Active) Start date:01/08/2025 Enrollment date:01/08/2025 Current support & services provided:Type 2 Diabetes Management Related social drivers of health:Tobacco Use, Financial Resource Strain, Stress, Physical Activity, Food Insecurity Overview The Diabetes Self-Management Education program is designed to help patients manage their diabetes or prediabetes. Case Team Name Relationship Phone Bob Medina RN(Responsible Staff) Registered Nurse Continued Care and Services Coordination
--- OUTSIDE RECORDS SUMMARY | 2025-01-27 00:19 | XMS_ITS | Encounter Summary ---
Author Organization [facility] Address [address] [place] [address] Care Team Providers Care Bank Runner Name Role Phone Maira Rush ORTHO ASSISTANT Unavailable [phone] Brandon Monterroso MD Primary Care Provider Maira Rush ORTHO ASSISTANT Unavailable [phone] Chandrika Danielson MA Unavailable [phone] Lilian Quezada HOME OFFICE REPRESENTATIVE Unavailable Encounter Details Date Type Department Care Team (Late Contact Info) Description 06/26/2023 Orders Only [facility] [address] [place] [address] Maira Rush ORTHO ASSISTANT [address] [place] [address] Social History Tobacco Use Types Packs/Day Years Used Date Smoking Tobacco: Never Assessed Comments Unknown Sex and Gender Information Value Date Recorded Sex Assigned at Not on file Legal Sex Female 7:18 PM EDT Gender Identity Not on file Sexual Orientation Not on file documented as of this encounter Plan of Treatment Upcoming Encounters Date Type Department Care Team (Late st Contact Info) Description 02/11/2025 11:30 AM EDT Clinical Support [facility] Patient Education [address] [place] [address] Bob Medina RN documented as of this encounter Procedures Procedure Name Priority Date/Time Associated Diagnosis Comments ELECTROCARDIOGRAM REPORT Routine 024 11:14 AM EST documented in this encounter Results * Electrocardiogram Report (06/24/2023 11:14 AM EST) us Maira Rush ORTHO ASSISTANT IN CLINIC/BEDSIDE ORDERABLES Fi nal Result documented in this encounter Visit Diagnoses Not on filedocumented in this encounter Care Teams Bank Runner Relationship Specialty Start Date End Date Brandon Monterroso MD [address] [place] [phone] PCP - General Family Medicine 06/26/23 Maira Rush NP [address] [place] [phone] PCP - [facility] 06/03/24 Maira Rush NP [address] [place] [phone] Referring Physician Nurse Practitioner 12/17/22 Chandrika Danielson, NORAH [address] [place] [address] Family Medicine 12/14/24 01/26/25 Lilian Quezada, MIAH [address] [place] [place] [address] Syrup Mixer Family Medicine 12/14/24 01/26/25 documented as of this encounter
--- OUTSIDE RECORDS SUMMARY | 2025-01-27 00:19 | XMS_ITS | Encounter Summary ---
Author Organization [facility] tem Address [id number] [address] [place] [address] Care Team Providers Care Reeling Machine Setup Operator Name Role Phone Maira Rush APRN-SECURITY ASSURANCE SPECIALIST Primary Care Provider Encounter Details Date Type Department Care Team (Late st Contact Info) Description 01/16/2025 Results Follow-Up [facility] - Emergency [address] [place] [phone] Marlys Sexton RN Urine Culture Urine, Clean Catch Midstream Social History Tobacco Use Types Packs/Day Years Used Date Smoking Tobacco: Every Day Cigarettes 0.5 31 Started: 04/2022 Smokeless Tobacco: Never Alcohol Use Standard Drinks/Week Comments Not Currently 0 (1 standard drink = 0.6 oz pur e alcohol) [facility] Utilities Answer Date Recorded In the past [...] as of this encounter Plan of Treatment Not on file documented as of this encounter Goals Goal Patient Goal Type Associated Problems Recent Progress Patient-Stated? Author SNF General Yes Oralia Barnett, RN Note: Evaluation of progress towards goal: Patient is agreeable to SNF for therapy. documented as of this encounter Visit Diagnoses Not on filedocumented in this encounter Care Teams Reeling Machine Setup Operator Relationship Specialty Start Date End Date Maira Rush, JASSON-SECURITY ASSURANCE SPECIALIST PCP - General Nurse Practitioner 01/16/24 documented as of this encounter
--- OUTSIDE RECORDS SUMMARY | 2025-01-27 00:19 | XMS_ITS | Clinical Summary ---
Author Organization Lion[facility] tem Address [id number] [address] [place] [address] Care Team Providers Care Ultrasonographer Name Role Phone Maira Rush APRN-[employer] Primary Care Provider Allergies Active Allergy Reactions Criticality Noted Date Comments Ciprofloxacin Other (See Comments) 05/21/2014 Metronidazole Other (See Comments) 05/21/2014 Penicillins Other (See Comments) 05/21/2014 Sulfamethoxazole-Trimethoprim Other (See Comments) 05/21/2014 Medications aspirin 81 mg Take 1 tablet (81 mg total) by mouth in the morning. Active rivaroxaban (XARELTO) 20 mg tablet tablet Take 1 tablet (20 mg total) by mouth in the morning. Active potassium chloride (KLOR-CON SPRINKLE) 10 MEQ CR capsule Take 1 capsule (10 mEq total) by mouth in the morning. Active spironolactone (ALDACTONE) 25 mg tablet Take 2 tablets (50 mg total) by mouth in the morning and at bedtime. 3 Active rosuvastatin (CRESTOR) 5 mg tablet Take 1 tablet (5 mg total) by mouth nightly. 3 Active carvediloL (COREG) 12.5 mg tablet Take 1 tablet (12.5 mg total) by mouth in the morning and 1 tablet (12.5 mg total) in the evening. Take with meals. 3 Active JARDIANCE 25 mg tablet tablet Take 1 tablet (25 mg total) by mouth in the morning. 3 Active gabapentin (NEURONTIN) 600 mg tablet Take 1 tablet (600 mg total) by mouth 3 (three) times a day. 3 Active furosemide (LASIX) 20 mg tablet Take 1 tablet (20 mg total) by mouth daily. 3 Active losartan (COZAAR) 100 mg tablet Take 1 tablet (100 mg total) by mouth in the morning. 3 Active PARoxetine (PAXIL) 10 mg tablet Take 2 tablets (20 mg total) by mouth in the morning. 3 Active pantoprazole (PROTONIX) 40 mg EC tablet Take 1 tablet (40 mg total) by mouth every morning before breakfast. 3 Active insulin glargine (LANTUS, SEMGLEE) 100 unit/mL (3 mL) insulin pen Inject 15 Units under the skin in the morning and 15 Units before bedtime. 15 mL 4 Active insulin lispro (HumaLOG) 100 unit/mL insulin pen Inject 2-10 Units under the skin in the morning and 2-10 Units at noon and 2-10 Units in the evening. Inject with meals. Daytime hyperglycemia dosing.For blood glucose 151-200 mg/dL, give 2 units. 201-250 mg/dL, give 4 units. 251-300 mg/dL, give 6 units. 301-350 mg/dL, give 8 units.351-400 mg/dL, give 10 units.. 15 mL 4 Active insulin lispro (HumaLOG) 100 unit/mL insulin pen Inject 2-8 Units under the skin nightly. Bedtime hyperglycemia dosing.For blood glucose 201-250 mg/dL, give 2 units. 251-300 mg/dL, give 4 units. e 301-350 mg/dL, give 6 units.351-400 mg/dL, give 8 units. 15 mL 4 Active calcium carbonate-luisito min D3 (OSCAL 500 + D) 500 mg(1,250mg) -200 units per tablet Take 1 tablet by mouth in the morning and 1 tablet in the evening. Take with meals. Active cholecalcifero l, vitamin D3, 2,000 units tablet Take 1 tablet (2,000 Units total) by mouth in the morning. Active doxycycline (DORYX) 100 MG EC tablet Take 1 tablet (100 mg total) by mouth in the morning and 1 tablet (100 mg total) before bedtime. Active Active Problems Problem Noted Date Diagnosed Date Stage III pressure ulcer of sacral region 2023 Muscle weakness (generalized) 02/06/2024 Other abnormalities of gait and mobility 024 Injury of back of head 02/06/2024 Hyperglycemia 01/16/2024 Weakness 01/16/2024 Hypokalemia 01/16/2024 GERD (gastroesophageal reflux disease) Overview (01/16/2024): Last Assessment & Plan: Continue PPI, recommend limiting caffeine and quit smoking HLD (hyperlipidemia) 07/18/2023 Medical non-compliance 07/18/2023 Neuropathy, diabetic 07/18/2023 SANTO (obstructive sleep apnea) 07/18/2023 Overview (01/16/2024): Last Assessment & Plan: Non compliance , has been instructed in the past on importance of need to wear PAP Not wearing risk stroke, [place], Type 2 diabetes mellitus wit h complication, without long-term current use of insulin 07/18/2023 Overview (01/16/2024): Last Assessment & Plan: Discussion with pt about cmIs under the care of Dr sutton for this, her latest A1c is 11.9%, she needs to contact his office and get scheduled for an appt [place] conversation about the need for engagement and compliance and failure to do so may result in JORDAN (generalized anxiety disorder) 06/26/2023 Chronic obstructive pulmonary disease 11/09/2020 Overview (01/16/2024): Last Assessment & Plan: Continues to smoke, refused to quit Cont current meds at this time Is having some cough increase w increase in wheeze, will treat for early exac COPD D/t multiple drug allergies will use doxycycline No steroids at this time Fu if not better Wears oxygen at HS and about 3 hours daily Tobacco dependence syndrome 06/24/2012 Atrial fibrillation 10/17/2011 Overview (01/16/2024): Last Assessment & Plan: Continue with blood thinner and B dania PAROXYSMAL, NONE SEEN SINCE 09/12/11 Primary hypertension 10/17/2011 Overview (01/16/2024): Last Assessment & Plan: Stable, no med changes Encounters Date Type Department Care Team Description 01/16/2025 Results Follow-Up [facility] [address] [place] [address] Marlys Sexton RN Urine Culture Urine, Clean Catch Midstream 01/15/2025 12:51 PM EDT - 01/15/2025 5:15 PM EDT Emergency [facility] [address] [place] [address] José Shine DO Syncope, unspecified syncope type (Primary Dx) Discharge Disposition: Home 01/15/2025 Travel from Last 3 Months Social History Tobacco Use Types Packs/Day Years Used Date Smoking Tobacco: Every Day Cigarettes 0.5 31 Started: 04/2022 Smokeless Tobacco: Never Tobacco Cessation:Ready to Q uit: Not Asked; Counseling Given: Not Answered Alcohol Use Standard Drinks/Week Comments Not Currently 0 (1 standard drink = 0.6 oz pur e alcohol) [facility] Utilities Answer Date Recorded In the past 12 months has e [employer], gas, oil, or water [employer] threatened to shut off services in your [...] on file Sexual Orientation Not on file Last Filed Vital Signs Vital Sign Reading Time Taken Comments Blood Pressure 127/64 01/15/2025 4:00 PM EDT Pulse 61 01/15/2025 5:15 PM EDT Temperature 37 C (98.6 F) 01/15/2025 12:54 PM EDT Respiratory Rate 15 01/15/2025 4:00 PM EDT Oxygen Saturation 97% 01/15/2025 4:45 PM EDT Inhaled Oxygen Concentration - - Weight 98.3 kg (216 lb 12.8 oz) 02/07/2024 3:02 PM EDT Height 167.6 cm (5' 6 ) 01/16/2024 5:33 PM EDT Body Mass Index 34.99 01/16/2024 5:33 PM EDT Plan of Treatment Health Maintenance Due Date Last Done Comments Diabetic Ophthalmology Exam 1959 Tobacco Counseling 1959 Depression Screening 1971 Diabetic Foot Exam 1977 Zoster (Shingles) Vaccine (1 of 2) 2009 COVID-19 Vaccine (2 - 2023-2 5 season) 2024 09/02/2020 Fall Risk Screening 2024 Influenza Vaccine 02/01/2025 05/06/2024, , 04/05/2022, Additional history exists Adult BMI Screening 02/06/2025 02/07/2024 Tobacco Screening 03/20/2025 03/20/2024 Statin Use: Diabetic 08/06/2025 08/06/2024 DTaP,Tdap and Td Vaccines (4 - Td or Tdap) 11/24/2031 11/23/2021, 11/23/2021, 03/24/2020 Goals Goal Patient Goal Type Associated Problems Recent Progress Patient-Stated? Author [facility] General Yes Oralia Barnett, RN Note: Evaluation of progress towards goal: Patient is agreeable to SNF for therapy. Medical Devices Not on file Procedures Procedure Name Priority Date/Time Associated Diagnosis [...] URINE STAT 01/15/2025 3: 01 PM EDT ACETONE,(BETAHYDROXYB UTYRATE, KETONE) QUANTITATIVE SERUM STAT Add-on 01/15/2025 2:21 PM EDT TROP I, HIGH SENSITIVITY 1 HOUR STAT 01/15/2025 2:21 PM EDT LACTATE W/ REFLEX STAT 01/15/2025 2:2 1 PM EDT ECG 12-LEAD STAT 01/15/2025 1:06 PM EDT TROPONIN I, HIGH SENSITIVITY 0 HOUR STAT 01/15/2025 1:05 PM EDT TROPONIN I, HIGH SENSITIVITY 0 HOUR STAT 01/15/2025 1:05 PM EDT MAGNESIUM STAT 01/15/2025 1:05 PM EDT ETHANOL STAT 01/15/2025 1:05 PM EDT D-DIMER STAT 01/15/2025 1:05 PM EDT C-REACTIVE PROTEIN STAT 01/15/2025 1: 05 PM EDT COMPREHENSIVE METABOLIC PANEL STAT 01/15/2025 1:05 PM EDT CBC WITH AUTO DIFFERENTIAL STAT 01/15/2025 1:05 PM EDT from Last 3 Months Results * (ABNORMAL) Blood gas, venous (01/15/2025 4:21 PM EDT) Sample type VENOUS 01/15/2025 4:24 PM EDT [facility] pH, Venous 7.359 7.320 - 7.420 01/15/2025 4:24 PM EDT [facility] pCO2, Venous 55.4(H) 35.0 - 50.0 mmHg 01/15/2025 4:24 PM EDT [facility] pO2, Venous 35 30 - 50 mmHg 01/15/2025 4:24 PM EDT [facility] Base, Excess 4.0(H) 0.0 - 2.0 mmol/L 01/15/2025 4:24 PM EDT [facility] HCO3, Venous 31.2(H) 20.0 - 24.0 mmol/L 01/15/2025 4:24 PM EDT [facility] %O2 Saturation, Venous 64.0 % 01/15/2025 4:24 PM EDT [facility] Kingsley's test N/A 01/15/2025 4:24 PM EDT [facility] Sample site N/A 01/15/2025 4:24 PM EDT [facility] Insp. O2 conc. 21 % 01/15/2025 4:24 PM EDT [facility] Source Of Oxygen Room Air 01/15/2025 4:24 PM EDT [facility] venous Venous blood / Unknown 01/15/2025 4:21 PM EDT 01/15/2025 4:24 PM EDT us José Shine DO LAB BLOOD ORDERABLES Fi nal Result [facility] [address] [place] [address], [place] * CT brain without contrast (01/15/2025 [...] Niraj Rowley MD on 01/15/2025 4:29 PM us José Shine DO IMG CT ORDERABLES Final Result * (ABNORMAL) Bedside Glucose *Place/Obtain serum glucose if >500 per glucometer. (01/15/2025 3:42 PM EDT) [facility] Bedside Glucose (POC) 275(H) 65 - 99 mg/dL 01/15/2025 3:44 PM EDT [facility] arterial/capilla ry 01/15/2025 3:42 PM EDT 01/15/2025 3:44 PM EDT us José Shine DO POINT OF CARE TEST ORDE RABKAVON Final Result [facility] [address] [place] [address], [place] * (ABNORMAL) POCT Nursing Urine Macroscopic UA (01/15/2025 3:13 PM EDT) Pathologist [facility] POC Urine Specific [place] 1.010 1.010, 1.015, 1.020, 1.025 01/15/2025 3:04 PM EDT [facility] POC Urine Leukocyte Esterase Small(A) Negative 01/15/2025 3:04 PM EDT [facility] POC Urine Nitrite Negative Negative 01/15/2025 3:04 PM EDT [facility] POC Urine pH 5.5 5.0, 6.0, 6.5, 7.0, 7.5, 8.0, 8.5, 5.5 01/15/2025 3:04 PM EDT [facility] POC Urine Protein Negative Negative 01/15/2025 3:04 PM EDT [facility] POC Urine Glucose >=1000 mg/dL(A) Negative 01/15/2025 3:04 PM EDT [facility] POC Urine Ketones Negative Negative 01/15/2025 3:04 PM EDT [facility] POC Urine Urobilinogen 0.2 E.U./dL 01/15/2025 3:04 PM EDT [facility] POC Urine Bilirubin Negative Negative 01/15/2025 3:04 PM EDT [facility] POC Urine Blood/HGB Small(A) Negative 01/15/2025 3:04 PM EDT [facility] Urine 01/15/2025 3:13 PM EDT 01/15/2025 3:04 PM EDT us José Shine DO POINT OF CARE TEST ORDE RABLES Final Result Performing Organization Address [facility] Co de Phone Number [address] [place] [address], [place] * Extra Urine Bel[place] (01/15/2025 3:02 PM EDT) Extra Tube Auto Resulted 01/15/2025 5:01 PM EDT [facility] Urine Urine specimen collection, clean catch / Unknown 01/15/2025 3:02 PM EDT 01/15/2025 3:09 PM EDT us José Shine DO URINE ORDERABLES Final Result Performing Organization Address City/[facility] Co de Phone Number [address] [place] [address], [place] * (ABNORMAL) Urine Culture Urine, Clean Catch Midstream (01/15/2025 3:02 PM EDT) CULTURE RESULTS >100,000 CFU/mL Escherichia coli(A) 01/20/2025 8:42 AM EDT [facility] CULTURE RESULTS >100,000 CFU/mL Escherichia coli(A) 01/20/2025 8:42 AM EDT [facility] Comment:Variant Urine Urine specimen collection, clean catch / Unknown 01/15/2025 3:02 PM EDT 01/15/2025 3:09 PM EDT Narrative [facility] - 01/20/2025 8:42 AM EDT [...] DO MICROBIOLOGY - GENERAL ORDERABLES Final Result [facility] [address] [place] [address], [place] [phone] * Extra Urine Culture (01/15/2025 3:01 PM EDT) Extra Tube Auto Resulted 01/15/2025 4:02 PM EDT [facility] Urine Urine specimen collection, clean catch / Unknown 01/15/2025 3:01 PM EDT 01/15/2025 3:09 PM EDT us José P Prietokas DO URINE ORDERABLES Final Result Performing Organization Address City/[facility]/ZIP Co de Phone Number [address] [place] [address], [place] * Extra Urine (01/15/2025 3:01 PM EDT) Extra Tube Auto Resulted 01/15/2025 4:02 PM EDT [facility] Urine Urine specimen collection, clean catch / Unknown 01/15/2025 3:01 PM EDT 01/15/2025 3:09 PM EDT us José Moreaukas DO URINE ORDERABLES Final Result Performing Organization Address City/[facility] Co de Phone Number [address] [place] [address], [place] * Drug Screen, Urine (01/15/2025 3:01 PM EDT) AMPHETAMINE/METHAMP Negative Negative 01/15 3:55 PM EDT [facility] Comment:AMPH/METH screening cut off = 1000 ng/mL COCAINE METABOLITE Negative Negative 2024 3:55 PM EDT [facility] Comment:Cocaine screening cu t off value = 300 ng/mL ECSTASY Negative Negative 01/15/2025 3:55 PM EDT [facility] Comment:Ecstasy screening cu t off value = 500 ng/mL METHADONE Negative Negative 01/15/2025 3:55 PM EDT [facility] Comment:Methadone screening cut off value = 300 ng/mL. OPIATES Negative Negative 01/15/2025 3:55 PM EDT [facility] Comment: Opiates screening cut off value = 300 ng/mL This test is used for the detection of codeine, hydrocodone (>1000 ng/mL), morphine and hydromorphone (>900 ng/mL) in urine. OXYCODONE Negative Negative 01/15/2025 3:55 PM EDT [facility] Comment: Oxycodone screening cut off value = 300 ng/mL This test is used for the detection of oxycodone and oxymorphone in urine. PHENCYCLIDINE Negative Negative 01/15/2025 3:55 PM EDT [facility] Comment:Phencyclidine screen ing cut off value = 25 ng/mL CANNABINOIDS Negative Negative 01/15/2025 3:55 PM EDT [facility] Comment:Cannabinoids/THC scr eening cut off value = 50 ng/mL Urine Barbiturates Negative Negative 2024 3:55 PM EDT [facility] Comment:Barbiturates screeni ng cut off value = 200 ng/mL BENZODIAZEPINES Negative Negative 3:55 PM EDT [facility] Comment:Benzodiazepines scre ening cut off value = 200 ng/mL Urine 01/15/2025 3:01 PM EDT 01/15/2025 3:09 PM EDT us José Shine DO URINE ORDERABLES Final Result [facility] [address] [place] [address], * Troponin I, High Sensitivity 1 Hour (01/15/2025 2:21 PM EDT) TROPONIN I, HIGH SENSITIVITY 4 <16 ng/L 01/15/2025 3:01 PM EDT [facility] Blood Venous blood / Unknown Venipuncture / Unknown 01/15/2025 2:21 PM EDT 01/15/2025 2:25 PM EDT José Shine DO LAB BLOOD ORDERABLES Fi nal Result Performing Organization Address City/[facility]/ZIP Co de Phone Number [address] [place] [address], [place] * Lactate w/ Reflex (01/15/2025 2:21 PM EDT) LACTATE W/REFLEX 1.1 0.4 - 2.0 mmol/L 01/15/2025 2:45 PM EDT [facility] Blood Venous blood / Unknown Venipuncture / Unknown 01/15/2025 2:21 PM EDT 01/15/2025 2:23 PM EDT Narrative [facility] - 01/15/2025 2:45 PM EDT Result did not trigger repeat Lactate, re-order if needed. us José Shine DO LAB BLOOD ORDERABLES Fi nal Result Performing Organization Address [facility] de Phone Number [address] [place] [address], [place] * (ABNORMAL) Acetone, (BetaHydroxybutyrate, Ketone) quantitative, serum (01/15/2025 2:21 PM EDT) BETAHYDROXYBUTYRATE 1.14(H) 0.02 - 0.27 mmol/L 01/15/2025 4:47 PM EDT [facility] Blood Venous blood / Unknown Venipuncture / Unknown 01/15/2025 2:21 PM EDT 01/15/2025 2:25 PM EDT us José Shine DO LAB BLOOD ORDERABLES Fi nal Result Performing Organization Address City/[facility]/ZIP Co de Phone Number [facility] [address] [place] [address], [place] * ECG 12 lead (01/15/2025 1:06 PM EDT) 01/15/2025 1:06 PM EDT Narrative [facility] - 01/15/2025 4:52 PM EDT us José Shine DO ECG ORDERABLES Final R esult Performing Organization Address City/[facility]/ZIP Co de Phone Number [facility] * Troponin I, High Sensitivity 0 Hour (01/15/2025 1:05 PM EDT) TROPONIN I, HIGH SENSITIVITY 4 <16 ng/L 01/15/2025 2:52 PM EDT [facility] Blood Venous blood / Unknown Venipuncture / Unknown 01/15/2025 1:05 PM EDT 01/15/2025 2:25 PM EDT us José Shine DO LAB BLOOD ORDERABLES Fi nal Result Performing Organization Address [facility] de Phone Number [address] [place] [address], [place] * (ABNORMAL) CBC auto differential (01/15/2025 1:05 PM EDT) WBC 8.7 4 - 11 x10E9/L 01/15/2025 2:31 PM EDT [facility] RBC Count 5.47(H) 3.8 - 5.2 X10E12/L 01/15/2025 2:31 PM EDT [facility] Hemoglobin 16.8(H) 11.7 - 15.5 g/dL 01/15/2025 2:31 PM EDT [facility] Hematocrit 48.9(H) 35 - 47 % 01/15/2025 2:31 PM EDT [facility] MCV 89 80 - 100 fL 01/15/2025 2:31 PM EDT [facility] MCH 30.7 27 - 34 pg 01/15/2025 2:31 PM EDT [facility] MCHC 34.4 32 - 36 g/dL 01/15/2025 2:31 PM EDT [facility] RDW 14.1 11.5 - 15 % 01/15/2025 2:31 PM EDT [facility] Platelet Count 311 150 - 450 X10E9/L 01/15/2025 2:31 PM EDT [facility] MPV 8.8 7 - 12 fL 01/15/2025 2:31 PM EDT [facility] Neutrophils % 67.8 % 01/15/2025 2:31 PM EDT [facility] Lymphocytes % 23.8 % 01/15/2025 2:31 PM EDT [facility] Monocytes % 7.1 % 01/15/2025 2:31 PM EDT [facility] Eosinophils % 0.7 % 01/15/2025 2:31 PM EDT [facility] Basophils % 0.6 % 01/15/2025 2:31 PM EDT [facility] Neutrophils Absolute (A) 5.9 1.5 - 6.6 10*3/uL 01/15/2025 2:31 PM EDT [facility] Lymphocytes Absolute 2.1 1.0 - 3.5 10*3/uL 01/15/2025 2:31 PM EDT [facility] Monocytes Absolute 0.6 0.0 - 0.9 10*3/uL 01/15/2025 2:31 PM EDT [facility] Eosinophils Absolute 0.1 0.0 - 0.4 10*3/uL 01/15/2025 2:31 PM EDT [facility] Basophils Absolute 0.1 0.0 - 0.2 10*3/uL 01/15/2025 2:31 PM EDT [facility] Differential Type AUTOMATED DIFFERENTIAL 01/15/2025 2:31 PM EDT [facility] Blood Venous blood / Unknown Venipuncture / Unknown 01/15/2025 1:05 PM EDT 01/15/2025 2:25 PM EDT us José Shine DO LAB BLOOD ORDERABLES Fi nal Result Performing Organization Address [facility] Co de Phone Number [address] [place] [address], [place] * D-Dimer (01/15/2025 1:05 PM EDT) D DIMER <150 1 - 255 ug/mL 01/15/2025 3:14 PM EDT [facility] Comment:Results <255 ng/mL D DU: The [...] ORDERABLES Fi nal Result Performing Organization Address [facility] de Phone Number [address] [place] [address], [place] * C-reactive protein (01/15/2025 1:05 PM EDT) C REACTIVE PROTEIN <0.5 <=0.7 mg/dL 01/15/2025 2:49 PM EDT [facility] Blood Venous blood / Unknown Venipuncture / Unknown 01/15/2025 1:05 PM EDT 01/15/2025 2:25 PM EDT us José Shine DO LAB BLOOD ORDERABLES Fi nal Result [address] [place] [address], [place] * Magnesium (01/15/2025 1:05 PM EDT) Pathologist [facility] MAGNESIUM 1.8 1.8 - 2.6 mg/dL 01/15/2025 2:49 PM EDT [facility] Blood Venous blood / Unknown Venipuncture / Unknown 01/15/2025 1:05 PM EDT 01/15/2025 2:25 PM EDT José Shine DO LAB BLOOD ORDERABLES Fi nal Result Performing Organization Address [facility] Co de Phone Number [address] [place] [address], [place] * Ethanol (01/15/2025 1:05 PM EDT) [facility] ETHANOL <0.010 <=0.080 g/dL 01/15/2025 2:49 PM EDT [facility] Comment: This report is intended for use in clinical monitoring or management of patients. Blood Venous blood / Unknown Venipuncture / Unknown 01/15/2025 1:05 PM EDT 01/15/2025 2:25 PM EDT us José Shine DO LAB BLOOD ORDERABLES Fi nal Result Performing Organization Address City/[facility] Co de Phone Number [address] [place] [address], [place] * (ABNORMAL) Comprehensive metabolic panel (01/15/2025 1:05 PM EDT) [facility] SODIUM 136 134 - 146 mmol/L 01/15/2025 2:49 PM EDT [facility] POTASSIUM 3.1(L) 3.5 - 5.0 mmol/L 01/15/2025 2:49 PM EDT [facility] CHLORIDE 97(L) 98 - 109 mmol/L 01/15/2025 2:49 PM EDT [facility] CARBON DIOXIDE 29 22 - 32 mmol/L 01/15/2025 2:49 PM EDT [facility] ANION GAP 10 5 - 15 mmol/L 01/15/2025 2:49 PM EDT [facility] BLOOD UREA NITROGEN 9 5 - 27 mg/dL 01/15/2025 2:49 PM EDT [facility] CREATININE 0.73 0.40 - 1.00 mg/dL 01/15/2025 2:49 PM EDT [facility] Comment:METHOD TRACEABLE TO IDMS STANDARD GLUCOSE 369(H) 65 - 99 mg/dL 01/15/2025 2:49 PM EDT [facility] CALCIUM 8.8 8.5 - 10.5 mg/dL 01/15/2025 2:49 PM EDT [facility] TOTAL PROTEIN 6.4 6.0 - 8.0 g/dL 01/15/2025 2:49 PM EDT [facility] ALBUMIN 3.3 3.2 - 5.3 g/dL 01/15/2025 2:49 PM EDT [facility] ALKALINE PHOSPHATASE 83 39 - 130 U/L 01/15/2025 2:49 PM EDT [facility] AST 15 <=41 U/L 01/15/2025 2:49 PM EDT [facility] ALT 13 <=31 U/L 01/15/2025 2:49 PM EDT [facility] BILIRUBIN,TOTAL 0.6 0.3 - 1.2 mg/dL 01/15/2025 2:49 PM EDT [facility] EGFR Non-Race Dependent >90 >=60 ml/min/1.7 3sq.m 01/15/2025 2:49 PM EDT [facility] Comment: eGFR not reported due to non-numeric value for Creatinine. Reported eGFR is based on the CKD-EPI 2020 equation that does not use a race coefficient. Blood Venous blood / Unknown Venipuncture / Unknown 01/15/2025 1:05 PM EDT 01/15/2025 2:25 PM EDT us José Shine DO LAB BLOOD ORDERABLES Fi nal Result [facility] [address] [place] [address], [place] from Last 3 Months Insurance [place] [employer] Advance Directives * Full Code (Latest Code Status on File) Date Activated Date Inactivated Comments 01/16/2024 3:39 PM 01/22/2024 10:18 AM Care Teams Ultrasonographer Relationship Specialty Start Date End Date Maira Rush, [employer] PCP - General Nurse Practitioner 01/16/24
--- OUTSIDE RECORDS SUMMARY | 2025-01-27 00:19 | XMS_ITS | Encounter Summary ---
Author Organization [facility] Address [address] [place] [address] Care Team Providers Care Private Branch Exchange Repairer Name Role Phone Maira Rush PRINTING AND STAMPING SUPERVISOR Unavailable [phone] Brandon Monterroso MD Primary Care Provider Maira Rush PRINTING AND STAMPING SUPERVISOR Unavailable [phone] Chandrika Danielson MA Unavailable [phone] Lilian Quezada DAYTIME BABYSITTER Unavailable Encounter Details Date Type Department Care Team (Late st Contact Info) Description 07/15/2023 [facility] [address] [place] [address] Maira Rush NP [address] [place] [address] Social History Tobacco Use Types Packs/Day Years Used Date Smoking Tobacco: Former Cigarettes 0.5 39.8 1 983 - 04/2022 Tobacco Cessation:Counseling Given: Not Answered Alcohol Use Standard Drinks/Week Comments Not Currently 0 (1 standard drink = 0.6 oz pur e alcohol) coffee 1-2 cups per day PHQ-2 Answer Date Recorded Patient Health Questionnaire-2 Score 0 07/18/2023 Comments Unknown Sex and Gender Information Value Date Recorded Sex Assigned at Not on file Legal Sex Female 7:18 PM EDT Gender Identity Not on file Sexual Orientation Not on file documented as of this encounter Functional Status * Over the past 2 weeks, how often have you been bothered by any of the following problems? Question Answer Date of Assessment Author Little interest or pleasure in doing things Not at all 07/18/2023 2:39 PM BERENICE RAMOS Feeling down, depressed, or hopeless Not at all 07/18/2023 2:39 PM BERENICE RAMOS Patient Health Questionnaire -2 Score 0 07/18/2023 2:39 PM BERENICE RAMOS documented as of this encounter Plan of Treatment Upcoming Encounters Date Type Department Care Team (Late st Contact Info) Description 02/11/2025 11:30 AM EDT Clinical Support YOLY Martinez Patient Education [address] [place] [id number] Bob Medina RN documented as of this encounter Visit Diagnoses Not on filedocumented in this encounter Care Teams Private Branch Exchange Repairer Relationship Specialty Start Date End Date Brandon Monterroso MD [address] [place] [address] PCP - General Family Medicine 06/26/23 Maira Rush NP [address] [place] [address] PCP - [facility] 06/03/24 Maira Rush NP [address] [place] [address] Referring Physician Nurse Practitioner 12/17/22 Chandrika Danielson MA [address] [place] [address] Family Medicine 12/14/24 01/26/25 Lilian Quezada LSW [address] [facility] [place] [address] Alpine Patroller Family Medicine 12/14/24 01/26/25 documented as of this encounter
--- OUTSIDE RECORDS SUMMARY | 2025-01-27 00:19 | XMS_ITS | Patient Health Record ---
Author Organization [facility] Address [address] [place], [place] [id number] Care Team Providers Care Tour Guide Name Role Phone Odilia Braden Unavailable [phone] Allergies Allergen (clinical drug ingredient) Drug/Non Drug Allergy documented on EMR Reaction Allergy Type Onset Date Status sulfamethoxazole / trimethoprim Bactrim Unknown Drug Allergy Active ciprofloxacin / hydrocortisone Cipro HC Unknown Drug Allergy Active metronidazole Flagyl Unknown Drug Allergy Act migel Penicillin Unknown Drug Allergy Active Reason For Referral No Information Medications Medication SIG (Take, Route, Frequency, Duration) Notes Start Date End Date Status Metoprolol Succinate ER 200 MG Oral; Duration: 30 Active Jardiance 25 MG Oral; Duration: 30 Active Mupirocin Calcium 2 % External; Duration: 14 Active Pantoprazole Sodium 40 MG Oral; Duration: 30 Active Vitamin D 50 MCG (1999) Oral; Duration: 30 Active Losartan Potassium 100 MG Oral; Duration: 30 Active Insulin Aspart FlexPen 100 UNIT/ML Subcutaneous; Duration: 30 Active Furosemide 20 MG Oral; Duration: 30 Active Gabapentin 600 MG Oral; Duration: 30 Active Lantus SoloStar 100 UNIT/ML Subcutaneous ; Duration: 30 Active Aspirin Low Dose 81 MG Oral; Duration: 30 Active Spironolactone 25 MG TAKE 2 TABLETS SID Y ~301 TAKE 1 TABLET DAILY Oral; Duration: 30 Active True Metrix Blood Glucose Test - In Vitro; Duration: 25 Activ e Symbicort 160-4.5 MCG/ACT Inhalation; Duration: 30 Active Sure Comfort Pen [place] 32G X 4 MM ; Duration: 25 Active PARoxetine HCl 10 MG Oral; Duration: 30 Active Spiriva Respimat 2.5 MCG/ACT Inhalation; Duration: 30 Active Rosuvastatin Calcium 5 MG Oral; Duration: 30 Active Potassium Chloride ER 10 MEQ Oral; Duration: 30 Active Xarelto 20 MG TAKE 1 TABLET BY ONCE DAILY Oral; Duration: 30 Active Social History Sex Assigned At : Social History Observation Description Sex Assigned At Female Plan Of Treatment No Information Insurance Providers Payer Name Payer Address Payer Phone Subscriber Number Group Number Insured Name Patient Relationship to Insured Coverage Start Date Coverage End Date [employer]e [employer] [place] [address] [address] [place] [address] [id number] Denae Dior Self - patient is the insured 2 DMedicaid ABD after [employer] [address] [place], [place] [id number] Denae Dior Self - patient is the insured 2 Medical (General) History Medical History History ICD Code Diabetes
--- OUTSIDE RECORDS SUMMARY | 2025-01-27 00:19 | XMS_ITS | Encounter Summary ---
Author Organization [employer] Address [id number] [address] [place] [address] Care Team Providers Care Turbine Attendant Name Role Phone Maira Rush APRN-LAW SECRETARY Primary Care Provider Encounter Details Date Type Department Care Team (Latest Contact Info) Description 01/15/2025 Travel Social History Tobacco Use Types Packs/Day Years Used Date Smoking Tobacco: Every Day Cigarettes 0.5 31 Started: 04/2022 Smokeless Tobacco: Never Alcohol Use Standard Drinks/Week Comments Not Currently 0 (1 standard drink = 0.6 oz pur e alcohol) [facility] Utilities Answer Date Recorded In the past 12 months has th e electric, gas, oil, or water company [...] Patient-Stated? Author SNF General Yes Oralia Barnett, BARI Note: Evaluation of progress towards goal: Patient is agreeable to SNF for therapy. documented as of this encounter Visit Diagnoses Not on filedocumented in this encounter Care Teams Turbine Attendant Relationship Specialty Start Date End Date Maira Rush, JASSON-LAW SECRETARY PCP - General Nurse Practitioner 01/16/24 documented as of this encounter
--- OUTSIDE RECORDS SUMMARY | 2025-01-27 00:19 | XMS_ITS | Encounter Summary ---
Author Organization [facility] Address [address] [place] [place] [address] Care Team Providers Care Breakdown Man Name Role Phone Maira Rush DOUBLE NEEDLE OPERATOR LOCKSTITCH Unavailable [phone] Brandon Monterroso MD Primary Care Provider Maira Rush DOUBLE NEEDLE OPERATOR LOCKSTITCH Unavailable [phone] Chandrika Danielson MA Unavailable [phone] Lilian Quezada SPRAY TECHNICIAN Unavailable Encounter Details Date Type Department Care Team (Late Contact Info) Description 09/16/2023 Orders Only [facility] [address] [place] [phone] Kiko Garcia MD [address] [place] [address] Social History Tobacco Use Types Packs/Day Years Used Date Smoking Tobacco: Former Cigarettes 0.5 39.8 1 983 - 04/2022 Alcohol Use Standard Drinks/Week Comments Not Currently [...] Encounters Date Type Department Care Team (Late Contact Info) Description 02/11/2025 11:30 AM EDT Clinical Support YOLY Martinez Patient Education [address] [place] [address] Bob Medina RN documented as of this encounter Procedures Procedure Name Priority Date/Time Associated Diagnosis Comments XR CHEST 1 VIEW Routine 09/16/2023 10:31 AM EDT documented in this encounter Results * XR chest 1 view (09/16/2023 10:31 AM EDT) Anatomical Region Laterality Modality Chest Radiographic Crystal ging Kiko Garcia MD IMG XR PROCEDURES Final Resul t documented in this encounter Visit Diagnoses Not on filedocumented in this encounter Care Teams Breakdown Man Relationship Specialty Start Date End Date Brandon Monterroso MD [address] [place] [address] PCP - General Family Medicine 06/26/23 Maira Rush NP [address] [place] [address] PCP - [facility] 06/03/24 Maira Rush NP [address] [place] [address] Referring Physician Nurse Practitioner 12/17/22 Chandrika Danielson, [place] [address] [place] [address] Family Medicine 12/14/24 01/26/25 Lilian Quezada LSW [address] [place] [address] Under Trimmer Family Medicine 12/14/24 01/26/25 documented as of this encounter
--- OUTSIDE RECORDS SUMMARY | 2025-01-27 00:19 | XMS_ITS | Encounter Summary ---
Author Organization [facility] Address [address] [place] [address] Care Team Providers Care Glue Maker Bone Name Role Phone Brandon Monterroso MD Primary Care Provider [phone] Maira Rush NP Unavailable [phone] Brandon Monterroso MD Primary Care Provider [phone] AicMaira stearns CLERK SUPERVISOR Unavailable [phone] Chandrika Danielson MA Unavailable [phone] Lilian Quezada FIELD SALES CONSULTANT Unavailable [phone] Encounter Details Date Type Department Care Team (Late st Contact Info) Description 06/24/2023 Orders Only [facility] [address] [place] [phone] Kiko Garcia MD [address] [place] [address] Social History Tobacco Use Types [...] 02/11/2025 11:30 AM EDT Clinical Support YOLY Gonzales Patient Education [address] [place] [address] Bob Medina RN documented as of this encounter Procedures Procedure Name Priority Date/Time Associated Diagnosis Comments XR CHEST 1 VIEW Routine 06/24/2023 2:48 PM EST documented in this encounter Results * XR chest 1 view (06/24/2023 2:48 PM EST) Anatomical Region Laterality Modality Chest Radiographic Crystal ging Kiko Garcia MD IMG XR PROCEDURES Final Resul t documented in this encounter Visit Diagnoses Not on filedocumented in this encounter Care Teams Glue Maker Bone Relationship Specialty Start Date End Date Brandon Monterroso MD PCP - General [facility] 12/17/22 06/25/23 Branodn Monterroso MD [address] [place] [address] PCP - [facility] 06/26/23 Maira Rush NP [address] [place] [address] PCP - [facility] 06/03/24 Maira Rush NP [address] [place] [address] Referring Physician Nurse Practitioner 12/17/22 Chandrika Danielson, [place] [address] [place] [address] Family Medicine 12/14/24 01/26/25 Lilian Quezada LSW [address] [place] [address] Die Equipment Operator Family Medicine 12/14/24 01/26/25 documented as of this encounter
--- OUTSIDE RECORDS SUMMARY | 2025-01-27 00:19 | XMS_ITS | Encounter Summary ---
Author Organization [facility] Address [address] [place] [address] Care Team Providers Care Craft Coordinator Name Role Phone Maira Rush NP Unavailable [phone] Brandon Monterroso MD Primary Care Provider [phone] Maira Rush OPERATOR SPECIALIST COMMUNICATIONS Unavailable [phone] Chandrika Danielson MA Unavailable [phone] Lilian Quezada RELINER Unavailable [phone] Encounter Details Date Type Department Care Team (Late Contact Info) Description 08/05/2023 Clinisync Result Encounter [facility] External Department Unsolicited Maira Rush NP [address] [place] [phone] Social History Tobacco Use Types Packs/Day Years [...] Support YOLY Martinez Patient Education [address] [place] [address] Alt, Bob, RN documented as of this encounter Procedures Procedure Name Priority Date/Time Associated Diagnosis Comments MM TOMOSYNTHESIS SCREENING BI 08/05/2023 11:45 AM EST documented in this encounter Results * MM TOMOSYNTHESIS SCREENING BI (08/05/2023 11:45 AM EST) Anatomical Region Laterality Modality Other 08/05/2023 11:4 5 AM EST Narrative 08/05/2023 11:46 [place] [address] Mammography Report Signed Patient: RODDY DIOR MR#: [id number] : 1960 Acct:[id number] Age/Sex: 63 / F ADM Date: 08/05/23 Loc: MAMMO Attending Dr: Maira Rush NP Ordering Physician: Maira Rush NP Results: Date of Service: 08/05/23 Follow Up: Procedure(s): MM tomosynthesis screening BI Accession Number(s): [id number] cc: Maira Rush NP Patient Name: RODDY DIOR MR#: [id number] : 1960 Exam Date: 08/05/2023 Ordering Doctor: DMITRY Rush CNP RADIOLOGY REPORT PROCEDURE: MM TOMOSYNTHESIS SCREENING BI COMPARISON: MG MAMM SCREEN 3D BALDO CAD, 06/07/2021. MG MAMM SCREEN 3D BALDO CAD, 06/21/2022. INDICATIONS: Screening for malignant neoplasm Calculator Name NCI Breast Cancer Risk Assessment Tool 5 Year Breast Cancer Risk 1.60% Lifetime Breast Cancer Risk 6.60% Personal Breast Cancer No Personal Ovarian Cancer No Treatments None Family Cancers Grandmother-maternal with breast cancer at age 65. LOCATION: [facility] BREAST COMPOSITION: Scattered areas fibroglandular density. FINDINGS: DIAGNOSTIC CATEGORY 1--NEGATIVE. NO CHANGE FROM COMPARISON ASSESSMENT. Scattered benign-appearing calcifications are present. Scattered benign-appearing lymph nodes are present. RIGHT BREAST: No significant suspicious finding. LEFT BREAST: No significant suspicious finding. RECOMMENDATIONS: ROUTINE MAMMOGRAM AND CLINICAL EVALUATION IN 12 MONTHS. PLEASE NOTE: A NORMAL MAMMOGRAM DOES NOT EXCLUDE THE POSSIBILITY OF BREAST CANCER. A CLINICALLY SUSPICIOUS PALPABLE LUMP SHOULD BE BIOPSIED. Dictated by: Taras Gomez MD on 08/05/2023 at 11:42 Approved by: Taras Gomez MD on 08/05/2023 at 11:45 Dictated By: Taras Gomez M.D. Signed By: 08/05/23 1146 DD/ 1145 TD/TT: Promotions Intern: Procedure Note Radiology, Radiologist, MD - 08/05/2023 [place] [address] Mammography Report Signed Patient: RODDY DIOR EMR#: [id number] : 1960Acct:[id number] Age/Sex: 63 / FADM Date: 08/05/23 Loc: MAMMO Attending Dr: Maira Rush NP Ordering Physician: Maira Rush NPResults: Date of Service: 08/05/23Follow Up: Procedure(s): MM tomosynthesis screening BI Accession Number(s): [id number] cc: Maira Rush NP Patient Name: RODDY DIOR MR#: [id number] : 1960 Exam Date: 08/05/2023 Ordering Doctor: DMITRY Rush CNP RADIOLOGY REPORT PROCEDURE: MM TOMOSYNTHESIS SCREENING BI COMPARISON: MG MAMM SCREEN 3D BALDO CAD, 06/07/2021. MG MAMM SCREEN 3DBIL CAD, 06/21/2022. INDICATIONS: Screening for malignant neoplasm Calculator Name NCI Breast Cancer Risk Assessment Tool 5 Year Breast Cancer Risk 1.60% Lifetime Breast Cancer Risk 6.60% Personal Breast Cancer No Personal Ovarian Cancer No Treatments None Family Cancers Grandmother-maternal with breast cancer at age 65. LOCATION: [facility] BREAST COMPOSITION: Scattered areas fibroglandular density. FINDINGS: DIAGNOSTIC CATEGORY 1--NEGATIVE. NO CHANGE FROM COMPARISON ASSESSMENT. Scattered benign-appearing calcifications are present. Scattered benign-appearing lymph nodes are present. RIGHT BREAST: No significant suspicious finding. LEFT BREAST: No significant suspicious finding. RECOMMENDATIONS: ROUTINE MAMMOGRAM AND CLINICAL EVALUATION IN 12 MONTHS. PLEASE NOTE: A NORMAL MAMMOGRAM DOES NOT EXCLUDE THE POSSIBILITY OFBREAST CANCER. A CLINICALLY SUSPICIOUS PALPABLE LUMP SHOULD BE BIOPSIED. Dictated by: Taras Gomez MD on 08/05/2023 at 11:42 Approved by: Taras Gomez MD on 08/05/2023 at 11:45 Dictated By: Taras Gomez M.D. Signed By:08/05/23 1146 DD/ 1145 TD/TT: Promotions Intern: us Maira Rush NP [facility] Final Result documented in this encounter Visit Diagnoses Not on filedocumented in this encounter Care Teams Craft Coordinator Relationship Specialty Start Date End Date Brandon Monterroso MD [address] [place] [address] PCP - General Family Medicine 06/26/23 Maira Rush NP [address] [place] [address] PCP - [facility] 06/03/24 Maira Rush NP [address] [place] [address] Referring Physician Nurse Practitioner 12/17/22 Chandrika Daneilson, NORAH [address] [place] [address] Family Medicine 12/14/24 01/26/25 Lilian Quezada LSW [address] [place] [address] Case Specialist Family Medicine 12/14/24 01/26/25 documented as of this encounter
--- OUTSIDE RECORDS SUMMARY | 2025-01-27 00:19 | XMS_ITS | CCD ---
Author Organization [facility] Care Team Providers Care Electrical Engineer Name Role Phone PHYSICIAN, DEFAULT Admitting Unavailable PHYSICIAN, DEFAULT Attending Unavailable AICHHOLZ, MAIRA Primary Care Unavailable PHYSICIAN, DEFAULT Admitting Unavailable PHYSICIAN, DEFAULT Attending Unavailable AICHHOLZ, MAIRA Primary Care Unavailable AICHHOLZ, OTHER SALES SUPPORT WORKER MAIRA Primary Care Unavailable SACHA MONTANO Admitting Unavailable MARILEE .KIAN Consulting Unavailabl e SACHA MONTANO Attending Unavailable Robert Hart Consulting Unavailable HANNAH TOVAR Admitting Unavailable AICHHOLZ, OTHER SALES SUPPORT WORKER MAIRA Primary Care Unavailable HANNAH TOVAR Attending Unavailable HANNAH TOVAR Consulting Unavailable AICHHOLZ, OTHER SALES SUPPORT WORKER MAIRA Consulting Unavailable AICHHOLZ, OTHER SALES SUPPORT WORKER MAIRA Primary Care Unavailable AICHHOLZ, OTHER SALES SUPPORT WORKER MAIRA Admitting Unavailable AICHHOLZ, OTHER SALES SUPPORT WORKER MAIRA Attending Unavailable AICHHOLZ, OTHER SALES SUPPORT WORKER MAIRA Attending Unavailable AICHHOLZ, OTHER SALES SUPPORT WORKER MAIRA Consulting Unavailable AICHHOLZ, OTHER SALES SUPPORT WORKER MAIRA Primary Care Unavailable AICHHOLZ, OTHER SALES SUPPORT WORKER MAIRA Admitting Unavailable Robert Hart Consulting Unavailable AICHHOLZ, OTHER SALES SUPPORT WORKER MAIRA Attending Unavailable AICHHOLZ, OTHER SALES SUPPORT WORKER MAIRA Consulting Unavailable AICHHOLZ, OTHER SALES SUPPORT WORKER MAIRA Primary Care Unavailable AICHHOLZ, OTHER SALES SUPPORT WORKER MAIRA Admitting Unavailable DR CORINE ANGELA V Consulting Unavailable AICHHOLZ, OTHER SALES SUPPORT WORKER MAIRA Primary Care Unavailable AICHHOLZ, OTHER SALES SUPPORT WORKER MAIRA Admitting Unavailable AICHHOLZ, OTHER SALES SUPPORT WORKER MAIRA Attending Unavailable AICHHOLZ, OTHER SALES SUPPORT WORKER MAIRA Consulting Unavailable DR TERI MAURO Admitting Unavailable AICHHOLZ, OTHER SALES SUPPORT WORKER MAIRA Primary Care Unavailable DR TERI MAURO Attending Unavailable DR TERI MAURO Consulting Unavailable DR CORINE ANGELA V Consulting Unavailable DR BRANDON MCFARLANE Consulting Unavailable DR NEHA GATICA Consulting Unavailable YECENIA MONTERO Consulting Unavailable Aichholz GREEN MARKETER, Maira Unavailable Loc TALBERT, Brandon Primary Care Provider CHAPITO DAMICO Referring Unavailable AICHHOLZ, MAIRA J Primary Care Unavailable Aichholz GREEN MARKETER, Maira Unavailable Aichholz GREEN MARKETER, Maira Unavailable CARROL SWENSON Attending Unavailable Chandrika Danielson MA Unavailable Pilar [facility], Lilian Unavailable AICHHOLZ, MAIRA Attending Unavailable AICHHOLZ, MAIRA Attending Unavailable AICHHOLZ, MAIRA Attending Unavailable AICHHOLZ, MAIRA Attending Unavailable ALT, BOB Attending Unavailable AICHHOLZ, MAIRA Referring Unavailable AICHHOLZ, MAIRA Attending Unavailable AICHHOLZ, MAIRA Attending Unavailable AICHHOLZ, MAIRA Attending Unavailable KALINA, AHMAD F Attending Unavailable KALINA, AHMAD F Referring Unavailable AICHHOLZ, MAIRA Attending Unavailable AICHHOLZ, MAIRA Attending Unavailable AICHHOLZ, MAIRA Attending Unavailable AICHHOLZ, MAIRA Attending Unavailable AICHHOLZ, MAIRA Attending Unavailable AICHHOLZ, MAIRA J Referring Unavailable AICHHOLZ, MAIRA J Primary Care Unavailable STEPHEN RAMOS Attending Unavailable AICHHOLZ, MIARA J Primary Care Unavailable KIRK MONTES Attending Unavailab le Allergies Allergy Classification Reported Allergen(s) Allergy Type Date of Onset Reaction(s) Facility (2 sources) Ciprofloxacin Drug Allergy 10-11-19 12 [facility] Repository (2 sources) metroNIDAZOLE Drug Allergy 10-11-19 12 [facility] Repository (6 sources) Penicillins; Translations: [PENICILLINS] Drug allergy (disorder) 10-11-19 12 [facility] Repository (2 sources) Sulfamethoxazole / Trimethoprim Drug Allergy 10-11-19 12 [facility] Repository (20 sources) Ciprofloxacin; Translations: [CIPROFLOXACIN] Drug Allergy 05-21-20 14 GI intolerance [facility] (20 sources) metroNIDAZOLE; Translations: [METRONIDAZOLE] Drug Allergy 05-21-20 14 GI intolerance [facility] (20 sources) Penicillins Drug Allergy 06-29-19 24 GI intolerance [facility] Healthcare (20 sources) Sulfamethoxazole Allergy to substance 06-29-19 24 GI intolerance [facility] Healthcare (20 sources) Trimethoprim Drug Allergy 06-29-19 24 GI intolerance [facility] Healthcare (4 sources) Sulfamethoxazole / Trimethoprim; Translations: [SULFAMETHOXAZOLE-TR IMETHOPRIM] Drug Allergy 05-21-20 14 [facility] Repository Medications Current Medications Medication Drug Class(es) Dates Sig (Normalized) Sig (Original) albuterol 0.83 mg/ml inhalation solution (20 sources) beta2-Adrenergic Agonist Start: 01-16-2025 End: 02-15-2025 albuterol (2.5 MG/3ML) 0.083% nebulizer solution Indications: COPD mixed type (HCC) Take 3 mL (2.5 mg) by nebulization every 6 (six) hours if needed for wheezing or shortness of breath 360 mL 1 01/16/2025 02/15/2025 Active Start: 11-18-2024 End: 12-18-2024 albuterol (2.5 MG/3ML) 0.083 % nebulizer solution Indications: COPD mixed type (HCC) [...] Calibration (True Metrix Level 1) Low solution (2 sources) Start: 12-15-2024 Blood Glucose Calibration (True Metrix Level 1) Low solution Indications: Type 2 diabetes mellitus with hyperglycemia, with long-term current use of insulin (HCC) USE DIRECTED PER PACKAGE INSTRUCTIONS *NEW RX REQUEST* 1 each 12/15/2024 Active Blood Glucose Calibration (True Metrix Level 2) Normal solution (2 sources) Start: 12-15-2024 Blood Glucose Calibration (True Metrix Level 2) Normal solution Indications: Type 2 diabetes mellitus with hyperglycemia, with long-term current use of insulin (HCC) USE DIRECTED PER PACKAGE INSTRUCTIONS *NEW RX REQUEST* 1 each 12/15/2024 Active Blood Glucose Calibration (True Metrix Level 3) High solution (2 sources) Start: 12-15-2024 Blood Glucose Calibration (True Metrix Level 3) High solution Indications: Type 2 diabetes mellitus with hyperglycemia, with long-term current use of insulin (HCC) USE DIRECTED PER PACKAGE INSTRUCTIONS *NEW RX REQUEST* 1 each 12/15/2024 Active Blood Glucose Monitoring Sup pl (True Metrix Meter) w/Device kit (2 sources) Start: 01-15-2025 Blood Glucose Monitoring Suppl (True Metrix Meter) w/Device kit Indications: Type 2 diabetes mellitus with hyperglycemia, with long-term current use of insulin (HCC) USE TO TEST BLOOD SUGAR 4 TIMES DAILY 1 kit 1 01/15/2025 Active Start: 12-15-2024 Blood Glucose Monitoring Suppl (True Metrix Meter) w/Device kit Indications: Type 2 diabetes mellitus with hyperglycemia, with long-term current use of insulin (HCC) USE FOUR TIMES A DAY *NEW RX REQUEST* 1 kit 1 12/15/2024 Active 60 actuat budesonide 0.16 mg/actuat / formoterol fumarate 0.0045 mg/actuat metered dose inhaler (20 sources) Corticosteroid, beta2-Adrenergic Agonist Start: 09-20-2024 End: 10-20-2024 take 2 [...] hydrochloride 150 mg extended release oral tablet (15 sources) Aminoketone Start: 10-14-2024 End: 01-13-2025 take 1 tablet by mouth every twenty-four hours in the morning buPROPion XL (Wellbutrin XL) 150 MG 24 hr tablet Indications: Mild episode of recurrent major depressive disorder Take 1 tablet (150 mg) by mouth in the morning. Do not crush, chew, or split. 30 tablet 2 12/14/2024 Active calcium carbonate 1250 mg / cholecalciferol [...] (20 sources) Vitamin D Start: 04-22-2024 End: 02-15-2025 take 1 tablet by mouth once daily cholecalciferol (Vitamin D-3) 50 MCG (1999 UT) tablet Indications: Vitamin D deficiency Take 1 tablet (50 mcg) by mouth Daily 30 tablet 2 01/16/2025 02/15/2025 Active Start: 01-03-2024 End: 04-22-2024 take 1 [...] 40 capsule 10/06/2024 10/16/2024 Active Continuous Glucose Clothing Busheler (FreeStyle Julisa 2 [place]) device (20 sources) Start: 04-29-2024 Continuous Glu cose Clothing Busheler (FreeStyle Julisa 2 [place]) device Indications: Type 2 diabetes mellitus with hyperglycemia, with long-term current use of insulin ([facility]) USE DIRECTED 1 each 04/29/2024 Active Start: 04-29-2024 Continuous Glu cose Clothing Busheler (FreeStyle Julisa 2 [place]) device Indications: Type 2 diabetes mellitus with hyperglycemia, with long-term current use of insulin (CMS/HCC) USE DIRECTED 1 each 04/29/2024 Active Start: 04-27-2024 End: 04-27-2025 Continuous Glucose Clothing Busheler (FreeStyle Julisa 2 [place]) device Indications: Type 2 diabetes mellitus with hyperglycemia, with long-term current use of insulin ([facility]) 1 kit every 14 (fourteen) days 1 each 1 04/27/2024 04/27/2025 Active Start: 04-27-2024 End: 04-27-2025 Continuous Glucose Clothing Busheler (FreeStyle Julisa 2 [place]) device Indications: Type 2 diabetes mellitus with hyperglycemia, with long-term current use of insulin ([facility]) 1 kit every 14 (fourteen) days 1 each 1 04/27/2024 04/27/2025 Active Start: 01-26-2024 End: 05-06-2024 Continuous Glucose Clothing Busheler (FreeStyle Julisa 2 [place]) device 01/26/2024 05/06/2024 Discontinued (Therapy completed) Start: 01-26-2024 Continuous Glu cose Clothing Busheler (FreeStyle Julisa 2 [place]) device 01/26/2024 Active Continuous Glucose Sensor (FreeStyle Julisa 2 Sensor) [facility] [place] sources[place] Start: 11-04-2024 Continuous Glu cose Sensor (FreeStyle Julisa 2 Sensor) misc Indications: Type 2 diabetes mellitus with hyperglycemia, with long-term current use of insulin ([facility]) USE TO MONITOR BLOOD SUGAR DIRECTED. CHANGE SENSOR EVERY 14 DAYS. 2 each 11/04/2024 Active Start: 04-22-2024 Continuous Glu cose Sensor (FreeStyle Julisa 2 Sensor) misc Indications: Type 2 diabetes mellitus with hyperglycemia, with long-term current use of insulin ([facility]) 1 kit every 14 (fourteen) days 6 each 1 04/22/2024 Active Start: 02-07-2024 End: 05-06-2024 Continuous Glucose Sensor (F reeStyle Julisa 2 Sensor) misc 02/07/2024 05/06/2024 Discontinued (Therapy completed) Start: 02-07-2024 Continuous Glu cose Sensor [facility]FreeStyle Julisa 2 Sensor[facility] 02/07/[facility]24 Active empagliflozin 25 mg oral tablet (20 sources) Sodium-Glucose Cotransporter 2 Inhibitor Start: 01-16-2025 End: 02-15-2025 take 1 tablet by mouth once daily empagliflozin (Jardiance) 25 MG Indications: Type 2 diabetes mellitus with diabetic neuropathy, with long-term current use of insulin ([facility]) Take 1 tablet (25 mg) by mouth Daily 30 tablet 2 01/16/2025 02/15/2025 Active Start: 06-24-2023 End: 10-18-2024 take 1 tablet by mouth once daily empagliflozin (Jardiance) 25 MG Indications: Type 2 diabetes mellitus with diabetic neuropathy, with long-term current use of insulin ([facility]) Take 1 tablet (25 mg) by mouth Daily 30 tablet 5 07/20/2024 Active fluconazole 150 mg oral tablet (10 sources) Azole Antifungal Start: 12-01-2024 End: 12-01-2024 [...] hyperglycemia, with long-term current use of insulin ([facility]) INJECT 15-18-20 UNITS SUBCUTANEOUSLY TO MEAL SIZE [...] dizziness 02/24/2024 04/22/2024 Discontinued (Therapy completed) nystatin 436199 unt/ml topical cream (5 sources) Polyene Antifungal Start: 10-14-2024 End: 10-28-2024 nystatin (Mycostatin) cream Indications: Gill rash of groin Apply topically in the morning and before bedtime. Do all this for 14 days. 60 g 10/14/2024 10/28/2024 Active nystatin [id number] unt/ml / triamcinolone acetonide 1 mg/ml topical cream (10 sources) Polyene Antifungal, Corticosteroid Start: 12-01-2024 End: [...] oral tablet (20 sources) Aldosterone Antagonist Start: 01-16-2025 End: 02-15-2025 take 1 tablet by mouth in the morning spironolactone (Aldactone) 25 MG tablet Indications: Primary hypertension , Edema of extremities Take 1 tablet (25 mg) by mouth in the morning and 1 tablet (25 mg) at noon. 60 tablet 2 01/16/2025 02/15/2025 Active Start: 03-16-2024 End: 11-04-2024 take 1 tablet [...] mg/actuat inhalation spray (20 sources) Anticholinergic Start: 01-16-2025 End: 02-15-2025 take 2 puff(s) by inhalation once daily tiotropium (Spiriva Respimat) 2.5 MCG/ACT inhaler Indications: COPD mixed type (HCC) Inhale 2 puffs Daily 4 g 2 01/16/2025 02/15/2025 Active Start: 11-06-2023 End: 05-22-2024 take 2 puff(s) [...] (acute) lower respiratory infection] Onset: 04-19-2022 Chronic Chronic ulcer of skin (20 sources) Pressure ulcer of sacral region, stage 3; Translations: [Pressure ulcer, lower back] Onset: 03-20-2024 Resolved: 06-09-2024 04-22-2024 Chronic Coagulation and hemorrhagic disorders (20 sources) [...] mellitus without complication] Onset: 06-11-2022 01-21-2024 Chronic Disorders of lipid metabolism (20 sources) Hyperlipidemia, unspecified; Translations: [Pure hypercholesterolemi a, unspecified] Onset: 11-27-2021 Chronic Esophageal disorders (20 sources) Gastro-esophageal reflux disease [...] 05-28-2024 05-28-2024 Chronic Other female genital disorders (3 sources) Disorder of female genital organs; Translations: [Unspecified condition associated with female genital organs and menstrual cycle] Onset: 12-14-2024 12-14-2024 Episodic Other gastrointestinal disorders (2 sources) Adrenal mass 05-28-2024 Episodic Other nutritional; endocrine; and metabolic disorders [...] nutritional; endocrine; and metabolic disorders (2 sources) Unintentional weight loss; Translations: [Abnormal weight loss] Onset: 12-15-2024 12-15-2024 Episodic Other upper respiratory disease (20 sources) Seasonal allergy; Translations: [Other seasonal allergic rhinitis] Onset: 07-18-2023 07-18-2023 Chronic Residual codes; unclassified (20 sources) Obstructive sleep apnea syndrome; Translations: [Obstructive sleep apnea (adult) (pediatric)] Onset: 07-18-2023 07-18-2023 Chronic Residual codes; unclassified (20 sources) Edema of extremity; Translations: [Localized edema] Onset: 07-18-2023 07-18-2023 Episodic Respiratory failure; insufficiency; arrest (adult) (20 sources) Dependence on supplemental oxygen; Translations: [Dependence on supplemental oxygen] Onset: 06-11-2022 03-18-2024 Chronic Substance-related disorders (20 sources) Nicotine dependence, cigarettes, uncomplicated; Translations: [Tobacco dependence caused by cigarettes] Onset: 06-11-2022 08-06-2024 Chronic Syncope (2 sources) Syncope and collapse; Translations: [Syncope] Onset: 01-15-2025 Episodic Unclassified (1 source) CONTACT W/AND (SUSP) EXPOS COVID-19; Translations: [CONTACT W/AND (SUSP) EXPOS COVID-19] Onset: 04-19-2022 Unclassified (1 source) Medical Screening Onset: 01-15-2025 Unclassified (1 source) EMS Onset: 01-15-2025 Unclassified (1 source) Wound Check Onset: 03-20-2024 Past or Other Problems Problem Classification Problem [...] fatigue (20 sources) Asthenia; Translations: [Weakness] Onset: 02-26-2024 02-26-2024 Episodic Open wounds of extremities (1 source) Unspecified open wound, left foot, initial encounter; Translations: [UNS OPEN WOUND LEFT FOOT INITIAL] Onset: 06-11-2022 Episodic Open wounds of head; neck; and trunk (20 sources) Open wound of buttock; Translations: [Unspecified open wound of unspecified buttock, initial encounter] Onset: 02-25-2024 Resolved: 05-19-2024 02-25-2024 Episodic Other aftercare (1 source) retirement (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 of aspirin; Translations: [NURSING HOME CURRENT USE OF ASPIRIN] Onset: 06-11-2022 Episodic Other aftercare (2 sources) retirement (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; Translations: [NURSING HOME CURRENT USE OF INSULIN] Onset: 06-11-2022 Episodic Other aftercare (1 source) Other retirement (current) drug therapy; Translations: [OTH DUMPSTER OPERATOR CURRENT DRUG THERAPY] Onset: 06-11-2022 Episodic Other aftercare (1 source) 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; Translations: [DUMPSTER OPERATOR CURRNT USE ANTICOAGULANTS] Onset: 11-27-2021 Episodic Other aftercare (20 sources) Long-term current use of insulin; Translations: [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] Onset: 06-09-2024 04-21-2024 [...] Onset: 07-18-2023 Resolved: 12-14-2024 07-18-2023 Episodic Other injuries and conditions due [...] 06-25-2022 Episodic Residual codes; unclassified (20 sources) Tobacco [...] Test Name Value Interpretation Reference Range Facility ACETONE,(BETAHYDROXYBUTYRATE , KETONE) QUANTITATIVE SERUMon 01-15-2025 BETAHYDROXYBUTYRATE 1.14 mmol/L High 0.02-0.27 [facility] Comment on above: Performed By: #### [place], [address]-9, CBCA #### [facility] ([id number]) [address] [place] [address], [place] [address] BEDSIDE GLUCOSEon 01-15-2025 Glucose [Mass/Vol] 275 mg/dL High 65-99 [facility] Comment on above: Performed By: #### C TUSHAR, , CBCA #### [facility] ([id number]) [address] [place] [address] BLOOD GAS, VENOUSon 01-16-20 25 BASE,EXCESS 4.0 mmol/L High 0.0-2.0 [facility] Comment on above: Performed By: #### C TUSHAR, , CBCA #### [facility] ([id number]) [address] [place] [address] HCO3 (Bld) [Moles/Vol] 31.2 mmol/L High 20.0-24.0 [facility] Comment on above: Performed By: #### Casey FINLEY, , CBCA #### [facility] ([id number]) [address] [place] [address] INSP. O2 CONC. 21 % Normal [facility] Comment on above: Performed By: #### Casey FINLEY, , CBCA #### [facility] ([id number]) [address] [place] [address] Oxygen saturation in Blood 64.0 % Normal [facility] Comment on above: Performed By: #### Casey FINLEY , CBCA #### [facility] ([id number]) [address] [place] [address] PCO2 VENOUS 55.4 mmHg High 35.0-50.0 [facility] Comment on above: Performed By: #### Casey FINLEY, , CBCA #### [facility] ([id number]) [address] [place] [address]957 PH VENOUS 7.359 Normal 7.320-7.420 [facility] Comment on above: Performed By: #### C TUSHAR, , CBCA #### [facility] ([id number]) [address] [place] [address] PO2 VENOUS 35 mmHg Normal 30-50 [facility] Comment on above: Performed By: #### C TUSHAR, , CBCA #### [facility] ([id number]) [address] [place] [address] POC MARGIE'S TEST N/A Normal [facility] Comment on above: Performed By: #### C TUSHAR, , CBCA #### [facility] ([id number]) [address] [place] [address] SAMPLE SITE N/A Normal [facility] Comment on above: Performed By: #### C TUSHAR, , CBCA #### [facility] ([id number]) [address] [place] [address] SAMPLE TYPE VENOUS Normal [facility] Comment on above: Performed By: #### C TUSHAR, , CBCA #### [facility] ([id number]) [address] [place] [address] SOURCE OF OXYGEN Room Air Normal [facility] Comment on above: Performed By: #### C TUSHAR, , CBCA #### [facility] ([id number]) [address] [place] [address] C-REACTIVE PROTEINon 025 CRP [Mass/Vol] mg/L Normal <=0.7 [facility] Comment on above: Performed By: #### C RP #### [facility] ([facility]) [address] [place] [address] VIR CBC WITH AUTO DIFFERENTIALon 01-15-2025 BASOPHILS ABSOLUTE COUNT (10*3/UL) BY AUTOMATED COUNT 0.1 10*3/uL Normal 0.0-0.2 [facility] Comment on above: Performed By: #### C BCA #### [facility] ([address] [address] VIR BASOPHILS RELATIVE PERCENT BY AUTOMATED COUNT 0.6 % Normal [facility] Comment on above: Performed By: #### C BCA #### [facility] ([address] [address] VIR CELLAVISION DIFFERENTIAL TYPE AUTOMATED DIFFERENTIAL Normal [facility] Comment on above: Performed By: #### C BCA #### [facility] ([address] [address] VIR Eosinophils (Bld) [#/Vol] 0.1 10*3/uL Normal 0.0-0.4 [facility] Comment on above: Performed By: #### C BCA #### [facility] ([address] [address] VIR EOSINOPHILS RELATIVE PERCENT BY AUTOMATED COUNT 0.7 % Normal [facility] Comment on above: Performed By: #### C BCA #### [facility] ([address] [address] VIR Erythrocyte distribution width (RBC) [Ratio] 14.1 % Normal 11.5-15 [facility] Comment on above: Performed By: #### C BCA #### [facility] ([address] [address] VIR Hematocrit (Bld) [Volume fraction] 48.9 % High 35-47 [facility] Comment on above: Performed By: #### C BCA #### [facility] ([address] [address] VIR Hemoglobin (Bld) [Mass/Vol] 16.8 g/dL High 11.7-15.5 [facility] Comment on above: Performed By: #### C BCA #### [facility] ([address] [address] VIR LYMPHOCYTES ABSOLUTE COUNT (10*3/UL) BY AUTOMATED COUNT 2.1 10*3/uL Normal 1.0-3.5 [facility] Comment on above: Performed By: #### C BCA #### [facility] ([address] [address] VIR LYMPHOCYTES RELATIVE PERCENT BY AUTOMATED COUNT 23.8 % Normal [facility] Comment on above: Performed By: #### C BCA #### [facility] ([address] [address] VIR MCH (RBC) [Entitic mass] 30.7 pg Normal 27-34 [facility] Comment on above: Performed By: #### C BCA #### [facility] ([address] [address] VIR MCHC (RBC) [Mass/Vol] 34.4 g/dL Normal 32-36 [facility] Comment on above: Performed By: #### C BCA #### [facility] ([address] [address] VIR MCV (RBC) [Entitic vol] 89 fL Normal 80-100 [facility] Comment on above: Performed By: #### C BCA #### [facility] ([address] [place] [address] VIR MONOCYTES ABSOLUTE COUNT (10*3/UL) BY AUTOMATED COUNT 0.6 10*3/uL Normal 0.0-0.9 [facility] Comment on above: Performed By: #### C BCA #### [facility] ([address] [address] VIR MONOCYTES RELATIVE PERCENT BY AUTOMATED COUNT 7.1 % Normal [facility] Comment on above: Performed By: #### C BCA #### [facility] ([address] [place] [address] VIR NEUTROPHILS ABSOLUTE COUNT BY AUTOMATED COUNT 5.9 10*3/uL Normal 1.5-6.6 [facility] Comment on above: Performed By: #### C BCA #### [facility] ([address] [place] [address] VIR NEUTROPHILS RELATIVE PERCENT BY AUTOMATED COUNT 67.8 % Normal [facility] Comment on above: Performed By: #### C BCA #### [facility] ([address] [place] [address] VIR Platelet mean volume (Bld) [Entitic vol] 8.8 fL Normal 7-12 [facility] Comment on above: Performed By: #### C BCA #### [facility] ([address] [place] [address] VIR Platelets (Bld) [#/Vol] 311 10*3/uL Normal 150-450 [facility] Comment on above: Performed By: #### C BCA #### [facility] ([address] [place] [address] VIR RBC COUNT 5.47 X10E12/L High 3.8-5.2 [facility] Comment on above: Performed By: #### C BCA #### [facility] ([address] [place] [address] VIR WBC (Bld) [#/Vol] 8.7 10*3/uL Normal 4-11 [facility] Comment on above: Performed By: #### C BCA #### [facility] ([address] [place] [address] VIR COMPREHENSIVE METABOLIC PANE Blayne 01-15-2025 Albumin [Mass/Vol] 3.3 g/dL Normal 3.2-5.3 [facility] Comment on above: Performed By: #### C MP #### [facility] ([facility] [address] [place] [address] VIR ALP [Catalytic activity/Vol] 83 U/L Normal 39-130 [facility] Comment on above: Performed By: #### C MP #### [facility] ([place] [address] [place] [address] VIR ALT [Catalytic activity/Vol] 13 U/L Normal <=31 [facility] Comment on above: Performed By: #### C MP #### [facility] ([place] [address] [place] [address] VIR Anion gap [Moles/Vol] 10 mmol/L Normal 5-15 [facility] Comment on above: Performed By: #### C MP #### [facility] ([place] [address] [place] [address] VIR AST [Catalytic activity/Vol] 15 U/L Normal <=41 [facility] Comment on above: Performed By: #### C MP #### [facility] ([place] [address] [place] [address] VIR Bilirubin [Mass/Vol] 0.6 mg/dL Normal 0.3-1.2 [facility] Comment on above: Performed By: #### C MP #### [facility] ([place] [address] [place] [address] VIR Calcium [Mass/Vol] 8.8 mg/dL Normal 8.5-10.5 [facility] Comment on above: Performed By: #### C MP #### [facility] ([place] [address] [place] [address] VIR Chloride [Moles/Vol] 97 mmol/L Low 98-109 [facility] Comment on above: Performed By: #### C MP #### [facility] ([place] [address] [place] [address] VIR CO2 [Moles/Vol] 29 mmol/L Normal 22-32 [facility] Comment on above: Performed By: #### C MP #### [facility] ([address] [address] VIR Creatinine [Mass/Vol] 0.73 mg/dL Normal 0.40-1.00 [facility] Comment on above: Result Comment: METH OD TRACEABLE TO IDMS STANDARD Performed By: #### C MP #### [facility] ([address] [address] VIR EGFR (CKD-EPI) NON-RACE DEPENDENT >^90 Normal >=60 [facility] Comment on above: Result Comment: eGFR not reported due to non-numeric value for Creatinine. Reported eGFR is based on the CKD-EPI 2020 equation that does not use a race coefficient. Performed By: #### C MP #### [facility] ([address] [address] VIR Glucose [Mass/Vol] 369 mg/dL High 65-99 [facility] Comment on above: Performed By: #### C MP #### [facility] ([address] [address] VIR Potassium [Moles/Vol] 3.1 mmol/L Low 3.5-5.0 [facility] Comment on above: Performed By: #### C MP #### [facility] ([address] [address] VIR Protein [Mass/Vol] 6.4 g/dL Normal 6.0-8.0 [facility] Comment on above: Performed By: #### C MP #### [facility] ([address] [address] VIR Sodium [Moles/Vol] 136 mmol/L Normal 134-146 [facility] Comment on above: Performed By: #### C MP #### [facility] ([place]) [address] [place] [address] [place] [address] VIR Urea nitrogen [Mass/Vol] 9 mg/dL Normal 5-27 [facility] Comment on above: Performed By: #### C TUSHAR #### [facility] ([facility]) [address] [place], [place] [address]. [place] [address] BRAIN WO CONTon CT BRAIN WO CONT CT BRAIN WO CONT STUDY: CT HEAD WITHOUT CONTRAST CLINICAL HISTORY: [...] Niraj Rowley MD on 01/15/2025 4:29 PM Normal [facility] D-DIMERon 01-15-2025 D DIMER <^150 Normal 1-255 [facility] Comment on above: Result Comment: Resu lts <255 ng/mL DDU: The presensence of a VTE can safely be excluded with a negative D-Dimer result and Wells score. A negative result doesn't exclude the possibility of DIC. The test should be repeated along with other diagnostic tests if the patient's symptoms persist or worsen. Performed By: #### C TUSHAR, 77324-2, CBCA #### [facility] ([id number]) [address] [place] [address], [place] [address] DRUG SCREEN, URINEon 025 AMPHETAMINE/METHAMP Negative Normal Negative [facility] Comment on above: Result Comment: AMPH /METH screening cut off = 1000 ng/mL Performed By: #### C TUSHAR, , CBCA #### [facility] ([id number]) [address] [place] [address] BARBITURATES Negative Normal Negative [facility] Comment on above: Result Comment: Rupa iturates screening cut off value = 200 ng/mL Performed By: #### C TUSHAR, , CBCA #### [facility] ([id number]) [address] [place] [address] BENZODIAZEPINES Negative Normal Negative [facility] Comment on above: Result Comment: Leroy odiazepines screening cut off value = 200 ng/mL Performed By: #### C TUSHAR, , CBCA #### [facility] ([id number]) [address] [place] [address] CANNABINOIDS Negative Normal Negative [facility] Comment on above: Result Comment: Shanice abinoids/THC screening cut off value = 50 ng/mL Performed By: #### C TUSHAR, , CBCA #### [facility] ([id number]) [address] [place] [address] COCAINE METABOLITE Negative Normal Negative [facility] Comment on above: Result Comment: Coca ine screening cut off value = 300 ng/mL Performed By: #### C TUSHAR, , CBCA #### [facility] ([id number]) [address] [place] [address] ECSTASY Negative Normal Negative [facility] Comment on above: Result Comment: Ecst asy screening cut off value = 500 ng/mL Performed By: #### C TUSHAR, , CBCA #### [facility] ([id number]) [address] [place] [address] METHADONE Negative Normal Negative [facility] Comment on above: Result Comment: Meth adone screening cut off value = 300 ng/mL. Performed By: #### C TUSHAR, , CBCA #### [facility] ([id number]) [address] [place] [address] OPIATES Negative Normal Negative [facility] Comment on above: Result Comment: Opia ashley screening cut off value = 300 ng/mL This test is used for the detection of codeine, hydrocodone (>1000 ng/mL), morphine and hydromorphone (>900 ng/mL) in urine. Performed By: #### C TUSHAR, 74533-7, CBCA #### [facility] ([id number]) [address] [place] [address] OXYCODONE Negative Normal Negative [facility] Comment on above: Result Comment: Oxyc odone screening cut off value = 300 ng/mL This test is used for the detection of oxycodone and oxymorphone in urine. Performed By: #### C TUSHAR, 35323-3, CBCA #### [facility] ([id number]) [address] [place] [address] PHENCYCLIDINE Negative Normal Negative [facility] Comment on above: Result Comment: Phen cyclidine screening cut off value = 25 ng/mL Performed By: #### C TUSHAR, , CBCA #### [facility] ([id number]) [address] [place] [address] ETHANOLon 01-15-2025 Ethanol [Mass/Vol] mg/dL Normal <=0.080 [facility] Comment on above: Result Comment: This report is intended for use in clinical monitoring or management of patients. Performed By: #### A LCO #### [facility] ([facility]) [address] [place] [address] VIR LACTATE W/ REFLEXon 01-16-20 25 LACTATE W/REFLEX 1.1 mmol/L Normal 0.4-2.0 [facility] Comment on above: Order Comment: Resul t did not trigger repeat Lactate, re-order if needed. Performed By: #### L ACTS #### [facility] ([facility]) [address] [place] [address] [place] [address] VIR MAGNESIUMon 01-15-2025 Magnesium [Mass/Vol] 1.8 mg/dL Normal 1.8-2.6 [facility] Comment on above: Performed By: #### M G #### [facility] ([facility]) [address] [place] [address] [place] [address] VIR POCT NURSING URINE MACROSCOP IC UAon 01-15-2025 BILIRUBIN ANISHA Negative Normal Negative [facility] Comment on above: Performed By: #### C TUSHAR, , CBCA #### [facility] ([id number]) [address] [place] [address] BLOOD/HGB ANISHA Small Abnormal Negative [facility] Comment on above: Performed By: #### Casey FINLEY, , CBCA #### [facility] ([id number]) [address] [place] [address] [place] [address] GLUCOSE ANISHA >=1000 mg/dL Abnormal Negative [facility] Comment on above: Performed By: #### Casey FINLEY, , CBCA #### [facility] ([id number]) [address] [place] [address] KETONES ANISHA Negative Normal Negative [facility] Comment on above: Performed By: #### Casey FINLEY, , CBCA #### [facility] ([id number]) [address] [place] [address] [place] [address] LEUKOCYTE ESTERASE ANISHA Small Abnormal Negative [facility] Comment on above: Performed By: #### Casey FINLEY, , CBCA #### [facility] ([id number]) [address] [place] [address] NITRITE ANISHA Negative Normal Negative [facility] Comment on above: Performed By: #### Casey FINLEY, , CBCA #### [facility] ([id number]) [address] [place] [address] PH ANISHA 5.5 Normal 5.0, 6.0, 6.5, 7.0, 7.5, 8.0, 8.5, 5.5 [facility] Comment on above: Performed By: #### C TUSHAR, , CBCA #### [facility] ([id number]) [address] [place] [address] PROTEIN ANISHA Negative Normal Negative [facility] Comment on above: Performed By: #### C TUSHAR, , CBCA #### [facility] ([id number]) [address] [place] [address] SPECIFIC GRAVITY ANISHA 1.010 Normal 1.010, 1.015, 1.020, 1.025 [facility] Comment on above: Performed By: #### C TUSHAR, , CBCA #### [facility] ([id number]) [address] [place] [address] UROBILINOGEN ANISHA 0.2 E.U./dL [facility] Comment on above: Performed By: #### C TUSHAR, , CBCA #### [facility] ([id number]) [address] [place] [address] TROP I, HIGH SENSITIVITY 1 H OURon 01-15-2025 TROPONIN I, HIGH SENSITIVITY 4 ng/L Normal <16 [facility] Comment on above: Performed By: #### C TUSHAR, , CBCA #### [facility] ([id number]) [address] [place] [address] TROPONIN I, HIGH SENSITIVITY 0 HOURon 01-15-2025 TROPONIN I, HIGH SENSITIVITY 4 ng/L Normal <16 [facility] Comment on above: Performed By: #### T NIHS0 #### [facility] ([facility]) [address] [place] [address]. [place] [address] VIR URINE CULTUREon 01-15-2025 Bacteria identified Cx Nom (U) CULTURE RESULTS ESCHERICHIA COLI >100,000 CFU/mL Escherichia coli ESCHERICHIA COLI >100,000 CFU/mL Escherichia coli Variant [ S = SUSCEPTIBLE R = RESISTANT I = INTERMEDIATE S-DO = Susceptible-dose dependent NS = Non-suscceptible NO = No Interpretation ] Organism: ESCHERICHIA COLI Antibiotic Interpretation TORO Status Ampicillin R >=^32.0 F AMP/SULBACTAM R >=^32.0 F PIPERACIL/TAZOBACTAM S 16 F Cefazolin (non-urinary) R 8.0 F Cefazolin (urinary) S 8.0 F Ceftriaxone S <=^0.25 F Gentamicin S <=^1.0 F Ciprofloxacin R >=^4.0 F Levofloxacin R >=^8.0 F Nitrofurantoin S <=^16.0 F Trimethoprim + Sulfamethoxazole R >=^16.0 F [ S = SUSCEPTIBLE R = RESISTANT I = INTERMEDIATE S-DO = Susceptible-dose dependent NS = Non-suscceptible NO = No Interpretation ] Organism: ESCHERICHIA COLI Antibiotic Interpretation TORO Status Ampicillin R >=^32.0 F AMP/SULBACTAM R >=^32.0 F PIPERACIL/TAZOBACTAM S 8.0 F Cefazolin (non-urinary) I 4.0 F Cefazolin (urinary) S 4.0 F Ceftriaxone S <=^0.25 F Gentamicin S <=^1.0 F Ciprofloxacin R >=^4.0 F Levofloxacin R >=^8.0 F Nitrofurantoin S <=^16.0 F Trimethoprim + Sulfamethoxazole R >=^16.0 F Resistant [facility] Comment on above: Order Comment: Along with <10,000 CFU/mL Normal Urogenital Vikram. Performed By: #### C TUSHAR, 54670-9, CBCA #### [facility] ([id number]) [address] [place] [address], [place] [address] HbA1c (Bld) [Mass fraction]o n 12-14-2024 Interpretation and review of laboratory results Abnormal [facility] Healthcare [facility] Laboratory - Hematology and Cell countson 12-14-2024 HbA1c (Bld) [Mass fraction] 14.1 % [facility] Orders Onlyon 10-28-2024 Orders Only [id number] Denae Dior 1960 F Date Provider Department Center 10/28/2024 [id number], HISTORICAL [facility] Family History Problem Relation Age of Onset Stroke Father Family Status - Relation Status Age at Father Normal [facility] GASTROINTESTINAL PLUS PARASI ASHLEY (HTRX)on 07-16-2024 ADENOVIRUS F40-41 0 [facility] ADENOVIRUS F40-41 Not detected [facility] CAMPYLOBACTER SPP (COLI, JEJUNI, UPSALIENSIS) 0 [facility] CAMPYLOBACTER SPP (COLI, JEJUNI, UPSALIENSIS) Not detected [facility] ENTEROAGGREGATIVE E. COLI (EAEC) 0 [facility] ENTEROAGGREGATIVE E. COLI (EAEC) Not detected [facility] ENTEROINVASIVE E. COLI (EIEC)-SHIGELLA SPP 0 [facility] ENTEROINVASIVE E. COLI (EIEC)-SHIGELLA SPP Not detected [facility] ENTEROPATHOGENIC E. COLI (EPEC) 0 [facility] ENTEROPATHOGENIC E. COLI (EPEC) Not detected [facility] ENTEROTOXIGENIC E. COLI (ETEC) 0 [facility] ENTEROTOXIGENIC E. COLI (ETEC) Not detected [facility] NOROVIRUS (GENOGROUP 1, 2) 0 [facility] NOROVIRUS (GENOGROUP 1, 2) Not detected [facility] ROTAVIRUS A, B, C 0 [facility] [...] [facility] CT ABDOMEN WO/W CONon [address] [address] [address] Scan Report Signed Patient: DENAE DIOR MR#: [id number] : 1960 Acct:[id number] Age/Sex: 63 / F ADM Date: 07/06/24 Loc: CT Attending Dr: Maira Rush NP Ordering Physician: Maira Rush NP Date of Service: 07/06/24 Procedure(s): CT abdomen wo/w con Accession Number(s): [id number] cc: Maira Rush NP [place] [address] Patient Name: DENAE DIOR MRN: [facility]:[id number] date: 1960 Sex: F Assigned Patient Location: CT Current Patient Location: Accession/Order Number: [id number] Exam Date: 07/06/2024 09:03 Report Date: 07/08/2024 [...] Signed By: 07/08/24 1155 DD/ 1152 TD/TT: Pesticide Applicator: [facility] Radiology, Radiologist, - 07/08/2024 [place] [address] CT Scan Report Signed Patient: DENAE DIOR MR#: [id number] : 1960 Acct:[id number] Age/Sex: 63 / F ADM Date: 07/06/24 Loc: CT Attending Dr: Maira Rush NP Ordering Physician: Maira Rush NP Date of Service: 07/06/24 Procedure(s): CT abdomen wo/w con Accession Number(s): [id number] cc: Maira Rush NP [place] [address] Patient Name: DENAE DIOR MRN: [facility]:[id number] date: 1960 Sex: F Assigned Patient Location: CT Current Patient Location: Accession/Order Number: [id number] Exam Date: 07/06/2024 09:03 Report Date: 07/08/2024 [...] Signed By: 07/08/24 1155 DD/ 1152 TD/TT: Pesticide Applicator: [facility] Radiology Study observation (narrative) [facility] CT ABDOMEN WO/W CONOrdered B y: Radiologist Radiology on 07-08-2024 [facility] Work Phone: Office Visiton 07-06-2024 Follow-up visit [id number] Denae Dior 1960 F Date Provider Department Center 07/06/2024 [id number]-[facility]ARR[facility] Family History Problem Relation Age of Onset Stroke Father Family Status - Relation Status Age at Father Level of Service:99033 SC OFFICE/OUTPATIENT ESTABLISHED LOW MDM 20 MIN Normal [facility] ALL RENAL FUNCTION PANELon 1 07-26-2023 Albumin [Mass/Vol] 3.3 g/dL Low 3.4 - 5.0 g/dL [facility] Anion gap [Moles/Vol] 9.2 mmol/L [facility] Calcium [Mass/Vol] 8.7 mg/dL 8.5 - 10. 1 mg/dL [facility] Chloride [Moles/Vol] 101 mmol/L 98 - 10 7 mmol/L [facility] CO2 [Moles/Vol] 31.7 mmol/L 21.0 - 32.0 mmol/L [facility] Creatinine [Mass/Vol] 0.87 mg/dL 0.55 - 1.02 mg/dL [facility] GFR/1.73 sq M.predicted CKD-EPI (S/P/Bld) [Vol rate/Area] >60 >=60 mL/min/1.73m 2 [facility] Glucose [Mass/Vol] 275 mg/dL High 74 - 106 mg/dL [facility] Interpretation and review of laboratory results Abnormal [facility] Phosphate [Mass/Vol] 4.3 mg/dL 2.6 - 4 .7 mg/dL [facility] Potassium [Moles/Vol] 3.9 mmol/L 3.5 - 5.1 mmol/L [facility] Sodium [Moles/Vol] 138 mmol/L 136 - 145 mmol/L [facility] TBH EGFR-NON AF EMIRATI >60 >=60 mL/min/1.73m 2 [facility] Urea nitrogen [Mass/Vol] 15 mg/dL 7.0 - 18.0 mg/dL [facility] Urea nitrogen/Creatinine [Mass ratio] 17.2 mg/mg [facility] Glucose (Bld) [Mass/Vol]Orde red By: Candy Baxter on 04-21-2024 Glucose Blood, POC 208 mg/dL [facility] Laboratory - Hematology and Cell countson 04-21-2024 HbA1c (Bld) [Mass fraction] 10.6 % [facility] No Panel InformationOrdered By: Candy Baxter on 04-21-2024 [facility] TB UA (CLEAN/CATCH) MICROSC OPIC IF INDICATEon 04-09-2024 BILIRUBIN URINE Negative NEGATIVE [facility] BLOOD URINE Negative NEGATIVE [facility] Clarity (U) CLEAR CLEAR [facility] Color (U) LT. YELLOW YELLOW [facility] GLUCOSE URINE UA >=1000 Abnormal NEGATIVE mg/dL [facility] Interpretation and review of laboratory results Abnormal [facility] Ketones Ql (U) Negative NEGATIVE mg/dL [facility] Leukocyte esterase Test strip Ql (U) Negative NEGATIVE [facility] NITRITE URINE Negative NEGATIVE [facility] pH (U) 6.0 [pH] 5.0 - 9.0 [facility] PROTEIN URINE Negative NEG/TRACE mg/dL [facility] SPECIFIC GRAVITY URINE 1.010 1.005 - 1.025 [facility] URINE MICROSCOPIC INDICATED NO [facility] UROBILINOGEN URINE 0.2 EU/dL 0.2 - 1.0 EU/dL [facility] URINE CULTURE, ROUTINEon Bacteria identified Cx Nom (U) Urine Culture, Routine [facility] Bacteria identified Cx Nom (U) Mixed urogenital vikram [facility] Bacteria identified Cx Nom (U) 10,000-25,000 colony forming units per mL [facility] Bacteria identified Cx Nom (U) [facility] Bacteria identified Cx Nom (U) [address] [place], [place] [id number] [facility] Bacteria identified Cx Nom (U) Discharge Coordinator: Josh Moore PhD, Phone: [phone] [facility] CBC AND AUTO DIFFon 01-22-20 ABSOLUTE BASOPHIL 0.0 X10E9/L Normal 0.0-0.2 [facility] Comment on above: Performed By: #### C TUSHAR, , CBCA #### [facility] ([id number]) [address] [place] [address] ABSOLUTE NEUTROPHIL 4.2 X10E9/L Normal 1.5-6.6 [facility] Comment on above: Performed By: #### C TUSHAR, , CBCA #### [facility] ([id number]) [address] [place] [address] Basophils/100 WBC (Bld) 0.4 % Normal [facility] Comment on above: Performed By: #### C TUSHAR, , CBCA #### [facility] ([id number]) [address] [place] [address] Eosinophils (Bld) [#/Vol] 0.2 10*3/uL Normal 0.0-0.4 [facility] Comment on above: Performed By: #### C TUSHAR, , CBCA #### [facility] ([id number]) [address] [place] [address]335 Eosinophils/100 WBC (Bld) 2.6 % Normal [facility] Comment on above: Performed By: #### Casey FINLEY, , CBCA #### [facility] ([id number]) [address] [place] [address]957 Erythrocyte distribution width (RBC) [Ratio] 13.5 % Normal 11.5-15.0 [facility] Comment on above: Performed By: #### C TUSHAR, , CBCA #### [facility] ([id number]) [address] [place] [address]6538 Hematocrit (Bld) [Volume fraction] 48.3 % High 35-47 [facility] Comment on above: Performed By: #### C TUSHAR, , CBCA #### [facility] ([id number]) [address] [place] [address] Hemoglobin (Bld) [Mass/Vol] 16.0 g/dL High 11.7-15.5 [facility] Comment on above: Performed By: #### C TUSHAR, , CBCA #### [facility] ([id number]) [address] [place] [address] 22021 Lymphocytes (Bld) [#/Vol] 1.9 10*3/uL Normal 1.0-3.5 [facility] Comment on above: Performed By: #### C TUSHAR, , CBCA #### [facility] ([id number]) [address] [place] [address] 16464 Lymphocytes/100 WBC (Bld) 27.1 % Normal [facility] Comment on above: Performed By: #### C TUSHAR, , CBCA #### [facility] ([id number]) [address] [place] [address] 69367 MCH (RBC) [Entitic mass] 31.5 pg Normal 27-34 [facility] Comment on above: Performed By: #### C TUSHAR, , CBCA #### [facility] ([id number]) [address] [place] [address] 10407 MCHC (RBC) [Mass/Vol] 33.1 g/dL Normal 32-36 [facility] Comment on above: Performed By: #### C TUSHAR, , CBCA #### [facility] ([id number]) [address] [place] [address] 30579 MCV (RBC) [Entitic vol] 95 fL Normal 80-100 [facility] Comment on above: Performed By: #### C TUSHAR, , CBCA #### [facility] ([id number]) [address] [place] [address] 70799 Monocytes (Bld) [#/Vol] 0.7 10*3/uL Normal 0-0.9 [facility] Comment on above: Performed By: #### C TUSHAR, , CBCA #### [facility] ([id number]) [address] [place] [address] 65457 Monocytes/100 WBC (Bld) 10.0 % Normal [facility] Comment on above: Performed By: #### Casey FINLEY, , CBCA #### [facility] ([id number]) [address] [place] [address] 44349 Neutrophils/100 WBC (Bld) 59.9 % Normal [facility] Comment on above: Performed By: #### Casey FINLEY, , CBCA #### [facility] ([id number]) [address] [place] [address] 73570 Platelet mean volume (Bld) [Entitic vol] 9.0 fL Normal 7-12 [facility] Comment on above: Performed By: #### Casey FINLEY, , CBCA #### [facility] ([id number]) [address] [place] [address] 42404 Platelets (Bld) [#/Vol] 264 10*3/uL Normal 150-450 [facility] Comment on above: Performed By: #### C TUSHAR, , CBCA #### [facility] ([id number]) [address] [place] [address] 19558 RBC COUNT 5.07 X10E12/L Normal 3.80-5.20 [facility] Comment on above: Performed By: #### C TUSHAR, , CBCA #### [facility] ([id number]) [address] [place] [address] 76376 WBC (Bld) [#/Vol] 7.1 10*3/uL Normal 4.0-11.0 [facility] Comment on above: Performed By: #### C TUSHAR, , CBCA #### [facility] ([id number]) [address] [place] [address] 32050 COMPREHENSIVE METABOLIC PANE Blayne 01-22-2024 Albumin [Mass/Vol] 3.1 g/dL Low 3.2-5.3 [facility] Comment on above: Performed By: #### C TUSHAR, , CBCA #### [facility] ([id number]) [address] [place] [address] 45863 ALP [Catalytic activity/Vol] 98 U/L Normal 39-130 [facility] Comment on above: Performed By: #### C TUSHAR, , CBCA #### [facility] ([id number]) [address] [place] [address] 47595 ALT [Catalytic activity/Vol] 21 U/L Normal 0-31 [facility] Comment on above: Performed By: #### C TUSHAR, , CBCA #### [facility] ([id number]) [address] [place] [address] 86868 Anion gap [Moles/Vol] 7 mmol/L Normal 5-15 [facility] Comment on above: Performed By: #### C TUSHAR, , CBCA #### [facility] ([id number]) [address] [place] [address] 71370 AST [Catalytic activity/Vol] 19 U/L Normal 0-41 [facility] Comment on above: Performed By: #### C TUSHAR, , CBCA #### [facility] ([id number]) [address] [place] [address] 44072 Bilirubin [Mass/Vol] 0.5 mg/dL Normal 0.3-1.2 [facility] Comment on above: Performed By: #### C TUSHAR, , CBCA #### [facility] ([id number]) [address] [place] [address] 54882 Calcium [Mass/Vol] 8.9 mg/dL Normal 8.5-10.5 [facility] Comment on above: Performed By: #### C TUSHAR, , CBCA #### [facility] ([id number]) [address] [place] [address] 78358 Chloride [Moles/Vol] 100 mmol/L Normal 98-109 [facility] Comment on above: Performed By: #### C TUSHAR, , CBCA #### [facility] ([id number]) [address] [place] [address] 12763 CO2 [Moles/Vol] 31 mmol/L Normal 22-32 [facility] Comment on above: Performed By: #### C TUSHAR, , CBCA #### [facility] ([id number]) [address] [place] [address] 82198 Creatinine [Mass/Vol] 0.51 mg/dL Normal 0.40-1.00 [facility] Comment on above: Result Comment: METH OD TRACEABLE TO IDMS STANDARD Performed By: #### C TUSHAR, , CBCA #### [facility] ([id number]) [address] [place] [address] 01176 eGFR (CKD-EPI) NON-RACE DEPENDENT >90 Normal >59 [facility] Comment on above: Result Comment: Reported eGFR is based on the CKD-EPI 2020 equation that does not use a race coefficient. Performed By: #### C TUSHAR, , CBCA #### [facility] ([id number]) [address] [place] [address] 80598 Glucose [Mass/Vol] 153 mg/dL High 65-99 [facility] Comment on above: Performed By: #### C TUSHAR, , CBCA #### [facility] ([id number]) [address] [place] [address] 37634 Potassium [Moles/Vol] 4.0 mmol/L Normal 3.5-5.0 [facility] Comment on above: Performed By: #### C TUSHAR, , CBCA #### [facility] ([id number]) [address] [place] [address] 12023 Protein [Mass/Vol] 6.5 g/dL Normal 6.0-8.0 [facility] Comment on above: Performed By: #### C TUSHAR, , CBCA #### [facility] ([id number]) [address] [place] [address] 98589 Sodium [Moles/Vol] 138 mmol/L Normal 134-146 [facility] Comment on above: Performed By: #### C TUSHAR, , CBCA #### [facility] ([id number]) [address] [place] [address] 55052 Urea nitrogen [Mass/Vol] 20 mg/dL Normal 5-27 [facility] Comment on above: Performed By: #### C TUSHAR, , CBCA #### [facility] ([id number]) [address] [place] [address] MAGNESIUMon 01-22-2024 Magnesium [Mass/Vol] 2.2 mg/dL Normal 1.8-2.6 [facility] Comment on above: Performed By: #### [place], [address]-5, CBCA #### [facility] ([id number]) [address] [place] [address] 58038 XR DEXA BONE DENSITYon 10-02 XR DEXA [...] by: ROBERT HART Date: 2022-10-02 12:08 Normal [facility] LIPID PROFILEon 08-09-2022 CHOL-HDL RATIO NORM SEE BELOW Normal [facility] Comment on above: Result Comment: 3.3 - 4.4 LOW RISK 4.4 - 7.1 AVERAGE RISK 7.1 - 11.0 MODERATE RISK >11.0 HIGH RISK Performed By: #### M ALBR #### [facility] [address] [address] [address] Maru Disla Cholesterol [Mass/Vol] 110 mg/dL Normal <=200 [facility] Comment on above: Performed By: #### M ALBR #### [facility] [address] [place], [place] [address] Dr. Maru Disla Cholesterol in HDL [Mass/Vol] 38 mg/dL Critically low 40-60 [facility] Comment on above: Performed By: #### M ALBR #### [facility] [address] [address] [address] Maru Disla Cholesterol in LDL [Mass/Vol] 52.4 mg/dL Normal [facility] Comment on above: Performed By: #### M ALBR #### [facility] [address] [address] [address] Maru Disla Cholesterol.total/Mariel sterol in HDL [Mass ratio] 2.9 {ratio} Normal [facility] Comment on above: Performed By: #### M ALBR #### [facility] [address] [place] [address] Dr. Maru Disla HDL NORMAL > or = 60 mg/dl - LOW CARDIOVASCULAR RISK <40 mg/dl - HIGH CARDIOVASCULAR RISK Normal [facility] Comment on above: Performed By: #### M ALBR #### [facility] [address] [place] [address] Dr. Maru Disla LDL CALC NORMAL SEE BELOW Normal [facility] Comment on above: Result Comment: <100 mg/dl OPTIMAL 100 - 129 mg/dl NEAR OR ABOVE OPTIMAL 130 - 159 mg/dl BORDERLINE HIGH 160 - 189 mg/dl HIGH >190 mg/dl VERY HIGH Performed By: #### M ALBR #### [facility] [address] [place] [address] Dr. Maru Disla Triglyceride [Mass/Vol] 98 mg/dL Normal <=150 T [facility] Comment on above: Performed By: #### M ALBR #### [facility] [address] [place] [address] Dr. Maru Disla VLDL CALC 19.6 mg/dL Normal [facility] Comment on above: Performed By: #### M ALBR #### [facility] [address] [place] [address] Dr. Maru Disla MICROALBUMIN, RAND URon 03-0 mALB <1.3 Normal <=30.0 [facility] Comment on above: Performed By: #### M ALBR #### [facility] [address] [place] [address] Dr. Maru Disla PROF 14(COMP METB)on 023 Albumin [Mass/Vol] 3.6 g/dL Normal 3.4-5.0 [facility] Comment on above: Performed By: #### M ALBR #### [facility] [address] [place] [address] Dr. Maru Disla Albumin/Globulin [Mass ratio] 0.9 {ratio} Normal [facility] Comment on above: Performed By: #### M ALBR #### [facility] [address] [place] [address] Dr. Maru Disla ALP [Catalytic activity/Vol] 92 U/L Normal 46-116 [facility] Comment on above: Performed By: #### M ALBR #### [facility] [address] [place] [address] Dr. Maru Disla ALT [Catalytic activity/Vol] 22 U/L Normal 14-59 [facility] Comment on above: Performed By: #### M ALBR #### [facility] [address] [place] [address] Dr. Maru Disla Anion gap [Moles/Vol] 13.2 mmol/L Normal [facility] Comment on above: Performed By: #### M ALBR #### [facility] [address] [place] [address] Dr. Maru Disla AST [Catalytic activity/Vol] 17 U/L Normal 15-37 [facility] Comment on above: Performed By: #### M ALBR #### [facility] [address] [place] [address] Dr. Mrau Disla Bilirubin [Mass/Vol] 0.4 mg/dL Normal 0.2-1.0 [facility] Comment on above: Performed By: #### M ALBR #### [facility] [address] [place] [address] Dr. Maru Disla Calcium [Mass/Vol] 9.3 mg/dL Normal 8.5-10.1 [facility] Comment on above: Performed By: #### M ALBR #### [facility] [address] [place] [address] Dr. Maru Disla Chloride [Moles/Vol] 102 mmol/L Normal 98-107 [facility] Comment on above: Performed By: #### M ALBR #### [facility] [address] [place] [address] Dr. Maru Disla CO2 [Moles/Vol] 29.7 mmol/L Normal 21.0-32.0 [facility] Comment on above: Performed By: #### M ALBR #### [facility] [address] [place] [address] Dr. Maru Disla Creatinine [Mass/Vol] 0.74 mg/dL Normal 0.55-1.02 [facility] Comment on above: Performed By: #### M ALBR #### [facility] [address] [place] [address] Dr. Maru Disla EGFR-AF EMIRATI >60 Normal >=60 [facility] Comment on above: Performed By: #### M ALBR #### [facility] [address] [place] [address] Dr. Maru Disla EGFR-NON AF EMIRATI >60 Normal >=60 [facility] Comment on above: Performed By: #### M ALBR #### [facility] [address] [place] [address] Dr. Maru Disla Globulin (S) [Mass/Vol] 3.9 g/dL Normal [facility] Comment on above: Performed By: #### M ALBR #### [facility] [address] [place] [address] Dr. Maru Disla Glucose [Mass/Vol] 271 mg/dL Critically high 74-106 [facility] Comment on above: Performed By: #### M ALBR #### [facility] [address] [place] [address] Dr. Maru Disla Potassium [Moles/Vol] 3.9 mmol/L Normal 3.5-5.1 [facility] Comment on above: Performed By: #### M ALBR #### [facility] [address] [place] [address] Dr. Maru Disla Protein [Mass/Vol] 7.5 g/dL Normal 6.4-8.2 [facility] Comment on above: Performed By: #### M ALBR #### [facility] [address] [address] [address] Maru Disla Sodium [Moles/Vol] 141 mmol/L Normal 136-145 [facility] Comment on above: Performed By: #### M ALBR #### [facility] [address] [address] [address] Maru Disla Urea nitrogen [Mass/Vol] 8.0 mg/dL Normal 7.0-18.0 [facility] Comment on above: Performed By: #### M ALBR #### [facility] [address] [address] [address] Maru Disla Urea nitrogen/Creatinine [Mass ratio] 10.8 mg/mg Normal [facility] Comment on above: Performed By: #### M ALBR #### [facility] [address] [address] [address] Maru Disla MG MAMM SCREEN 3D BALDO CADon 06-21-2022 MG MAMM SCREEN 3D BALDO CAD Patient: DENAE DIOR Exam Date: 06/21/2022 : 1960 Gender:F Ordering : DMITRY RUSH [employer] Admission #: [id number] Family : Order #: [id number] CLICK HERE TO VIEW EXAM RADIOLOGY REPORT [...] LOCATION: [facility] BREAST COMPOSITION: Scattered areas fibroglandular density. FINDINGS: [...] Normal [facility] HEMOGLOBINon 06-20-2022 Hemoglobin (Bld) [Mass/Vol] 15.1 g/dL Normal 12.0-16.0 [facility] Comment on above: Performed By: #### B MP #### [facility] [address] [place] [address] Dr. Maru Disla BNPon 04-09-2022 Natriuretic peptide B (Bld) [Mass/Vol] 824.0 pg/mL Normal <=900.0 [facility] Comment on above: Performed By: #### M ALBR #### [facility] [address] [place] [address] Dr. Maru Disla CARDIAC BREANNE ADMITon 022 CK [Catalytic activity/Vol] 364 U/L Critically high 26-192 [facility] Comment on above: Performed By: #### P OCGLUC #### [facility] [address] [place] [address] Dr. Maru Disla CK.MB [Mass/Vol] 5.60 ng/mL Critically high <=3.60 [facility] Comment on above: Performed By: #### P OCGLUC #### [facility] [address] [place] [address] Dr. Maru Disla HSTROP 454.7 pg/mL Critically high 4.0-51.3 [facility] Comment on above: Result Comment: CUT- OFF POINTS HAVE BEEN ESTABLISHED BASED ON THE FOURTH UNIVERSAL DEFINITIONS OF MYOCARDIAL INFARCTION. THE UPPER REFERENCE LIMIT (URL) OF TROPONIN, DEFINED THE 99TH PERCENTILE OF cTnI DISTRIBUTION IN A REFERENCE POPULATION, HAS BEEN CONFIRMED THE DECISION THRESHOLD FOR GA DIAGNOSIS. Performed By: #### P OCGLUC #### [facility] [address] [place] [address] Dr. Maru Disla REDD 137 ng/mL Critically high 9-82 [facility] Comment on above: Performed By: #### P OCGLUC #### [facility] [address] [address] [address] Maru Disla CBC AUTO DIFFon 04-09-2022 BASO # 0.0 103/ul Normal 0.0-0.1 [facility] Comment on above: Performed By: #### A BG #### [facility] [address] [address] [address] Maru Disla Basophils/100 WBC (Bld) 0.2 % Normal 0.2-2.0 [facility] Comment on above: Performed By: #### A BG #### [facility] [address] [address] [address] Maru Disla EO # 0.0 103/ul Normal 0.0-0.7 [facility] Comment on above: Performed By: #### A BG #### [facility] [address] [place] [address] Dr. Maru Disla Eosinophils/100 WBC (Bld) 0.0 % Critically low 0.9-7.0 [facility] Comment on above: Performed By: #### A BG #### [facility] [address] [place] [address] Dr. Maru Disla Erythrocyte distribution width (RBC) [Ratio] 13.4 % Normal 11.0-15.0 [facility] Comment on above: Performed By: #### A BG #### [facility] [address] [place] [address] Dr. Maru Disla Hematocrit (Bld) [Volume fraction] 48.3 % Critically high 36.0-48.0 [facility] Comment on above: Performed By: #### A BG #### [facility] [address] [place] [address] Dr. Maru Disla Hemoglobin (Bld) [Mass/Vol] 15.3 g/dL Normal 12.0-16.0 [facility] Comment on above: Performed By: #### A BG #### [facility] [address] [place] [address] Dr. Maru Disla IG # 0.11 10e3/ul Critically high 0.00-0.03 [facility] Comment on above: Performed By: #### A BG #### [facility] [address] [place] [address] Dr. Maru Disla IG % 0.6 % Critically high 0.0-0.5 [facility] Comment on above: Performed By: #### A BG #### [facility] [address] [place] [address] Dr. Maru Disla LYMPH # 1.1 103/ul Critically low 1.2-3.8 [facility] Comment on above: Performed By: #### A BG #### [facility] [address] [place] [address] Dr. Maru Disla Lymphocytes/100 WBC (Bld) 6.1 % Critically low 20.5-60.0 [facility] Comment on above: Performed By: #### A BG #### [facility] [address] [place] [address] Dr. Maru Disla MANUAL DIFF REQ NO Normal [facility] Comment on above: Performed By: #### A BG #### [facility] [address] [place] [address] Dr. Maru Disla MCH (RBC) [Entitic mass] 29.8 pg Normal 26.7-34.0 [facility] Comment on above: Performed By: #### A BG #### [facility] [address] [place] [address] Dr. Maru Disla MCHC (RBC) [Mass/Vol] 31.7 g/dL Normal 29.9-35.2 [facility] Comment on above: Performed By: #### A BG #### [facility] [address] [place] [address] Dr. Maru Disla MCV (RBC) [Entitic vol] 94.2 fL Normal 81.0-99.0 [facility] Comment on above: Performed By: #### A BG #### [facility] [address] [place] [address] Dr. Maru Disla MONO # 0.7 103/ul Normal 0.3-0.8 [facility] Comment on above: Performed By: #### A BG #### [facility] [address] [address] [address] Maru Disla Monocytes/100 WBC (Bld) 3.9 % Normal 1.7-12.0 [facility] Comment on above: Performed By: #### A BG #### [facility] [address] [place] [address] Dr. Maru Disla NEUT # 15.3 103/ul Critically high 1.4-6.5 [facility] Comment on above: Performed By: #### A BG #### [facility] [address] [place] [address] Dr. Maru Disla Neutrophils/100 WBC (Bld) 89.2 % Critically high 43.0-75.0 [facility] Comment on above: Performed By: #### A BG #### [facility] [address] [place] [address] Dr. Maru Disla Platelet mean volume (Bld) [Entitic vol] 10.4 fL Normal 9.5-13.5 [facility] Comment on above: Performed By: #### A BG #### [facility] [address] [place] [address] Dr. Maru Disla PLT 311 103/ul Normal 150-450 [facility] Comment on above: Performed By: #### A BG #### [facility] [address] [place] [address] Dr. Maru Disla RBC 5.13 106/ul Normal 4.20-5.40 [facility] Comment on above: Performed By: #### A BG #### [facility] [address] [place] [address] Dr. Maru Disla WBC 17.2 103/ul Critically high 4.0-11.0 [facility] Comment on above: Performed By: #### A BG #### [facility] [address] [place] [address] Dr. Maru Disla ECHOCARDIO M/2D COMPLETEon 1 06-09-2021 ECHOCARDIO M/2D COMPLETE Patient: DENAE DIOR Exam Date: 04/09/2022 : 1960 Gender:F Ordering : DR TERI BLOCK . Admission #: [id number] Family : Order #: [id number] CLICK HERE TO VIEW EXAM ECHOCARDIOGRAM REPORT [...] Subramanian M.D. on 04/10/2022 at 15:44 Normal [facility] POINT OF CARE GLUCOSEon 11-0 Glucose [Mass/Vol] 171 mg/dL Critically high 74-106 [facility] Comment on above: Performed By: #### P OCGLUC #### [facility] [address] [place] [address] Dr. Maru Disla Glucose [Mass/Vol] 97 mg/dL Normal 74-106 [facility] Comment on above: Performed By: #### M ALBR #### [facility] [address] [address] [address] Maru Disla PROF CHEM 8 (BAS METB)on Anion gap [Moles/Vol] 9.1 mmol/L Normal [facility] Comment on above: Performed By: #### P OCGLUC #### [facility] [address] [address] [address] Maru Disla Calcium [Mass/Vol] 8.7 mg/dL Normal 8.5-10.1 [facility] Comment on above: Performed By: #### P OCGLUC #### [facility] [address] [address] [address] Maru Disla Chloride [Moles/Vol] 104 mmol/L Normal 98-107 [facility] Comment on above: Performed By: #### P OCGLUC #### [facility] [address] [address] [address] Maru Disla CO2 [Moles/Vol] 33.2 mmol/L Critically high 21.0-32.0 [facility] Comment on above: Performed By: #### P OCGLUC #### [facility] [address] [address] [address] Maru Disla Creatinine [Mass/Vol] 0.87 mg/dL Normal 0.55-1.02 [facility] Comment on above: Performed By: #### P OCGLUC #### [facility] [address] [address] [address] Maru Disla EGFR-AF EMIRATI >60 Normal >=60 [facility] Comment on above: Performed By: #### P OCGLUC #### [facility] [address] [address] [address] Maru Disla EGFR-NON AF EMIRATI >60 Normal >=60 [facility] Comment on above: Performed By: #### P OCGLUC #### [facility] [address] [address] [address] Maru Disla Glucose [Mass/Vol] 115 mg/dL Critically high 74-106 [facility] Comment on above: Performed By: #### P OCGLUC #### [facility] [address] [address] [address] Maru Disla Potassium [Moles/Vol] 4.3 mmol/L Normal 3.5-5.1 [facility] Comment on above: Performed By: #### P OCGLUC #### [facility] [address] [address] [address] Maru Disla Sodium [Moles/Vol] 142 mmol/L Normal 136-145 [facility] Comment on above: Performed By: #### P OCGLUC #### [facility] [address] [place] [address] Dr. Maru Disla Urea nitrogen [Mass/Vol] 36.0 mg/dL Critically high 7.0-18.0 [facility] Comment on above: Performed By: #### P OCGLUC #### [facility] [address] [place] [address] Dr. Maru Disla Urea nitrogen/Creatinine [Mass ratio] 41.4 mg/mg Normal [facility] Comment on above: Performed By: #### P OCGLUC #### [facility] [address] [place] [address] Dr. Maru Disla CARDIAC BREANNE 3-6on 2 CK [Catalytic activity/Vol] 381 U/L Critically high 26-192 [facility] Comment on above: Performed By: #### C MREP #### [facility] [address] [place] [address] Dr. Maru Disla CK.MB [Mass/Vol] 7.91 ng/mL Critically high <=3.60 [facility] Comment on above: Performed By: #### C MREP #### [facility] [address] [place] [address] Dr. Maru Disla HSTROP 766.1 pg/mL Critically high 4.0-51.3 [facility] Comment on above: Result Comment: CUT- OFF POINTS HAVE BEEN ESTABLISHED BASED ON THE FOURTH UNIVERSAL DEFINITIONS OF MYOCARDIAL INFARCTION. THE UPPER REFERENCE LIMIT (URL) OF TROPONIN, DEFINED THE 99TH PERCENTILE OF cTnI DISTRIBUTION IN A REFERENCE POPULATION, HAS BEEN CONFIRMED THE DECISION THRESHOLD FOR GA DIAGNOSIS. Performed By: #### C MREP #### [facility] [address] [place] [address] Dr. Maru Disla CK [Catalytic activity/Vol] 356 U/L Critically high 26-192 [facility] Comment on above: Performed By: #### C MREP #### [facility] [address] [place] [address] Dr. Maru Disla CK.MB [Mass/Vol] 8.66 ng/mL Critically high <=3.60 [facility] Comment on above: Performed By: #### C MREP #### [facility] [address] [address] [address] Maru Disla HSTROP 610.6 pg/mL Critically high 4.0-51.3 [facility] Comment on above: Result Comment: CUT- OFF POINTS HAVE BEEN ESTABLISHED BASED ON THE FOURTH UNIVERSAL DEFINITIONS OF MYOCARDIAL INFARCTION. THE UPPER REFERENCE LIMIT (URL) OF TROPONIN, DEFINED THE 99TH PERCENTILE OF cTnI DISTRIBUTION IN A REFERENCE POPULATION, HAS BEEN CONFIRMED THE DECISION THRESHOLD FOR GA DIAGNOSIS. Performed By: #### C MREP #### [facility] [address] [address] [address] Maru Disla CARDIAC BREANNE ADMITon 022 CK [Catalytic activity/Vol] 381 U/L Critically high 26-192 [facility] Comment on above: Performed By: #### C MADM #### [facility] [address] [place] [address] Dr. Maru Disla CK.MB [Mass/Vol] 8.07 ng/mL Critically high <=3.60 [facility] Comment on above: Performed By: #### C MADM #### [facility] [address] [place] [address] Dr. Maru Disla HSTROP 220.2 pg/mL Critically high 4.0-51.3 [facility] Comment on above: Result Comment: CUT- OFF POINTS HAVE BEEN ESTABLISHED BASED ON THE FOURTH UNIVERSAL DEFINITIONS OF MYOCARDIAL INFARCTION. THE UPPER REFERENCE LIMIT (URL) OF TROPONIN, DEFINED THE 99TH PERCENTILE OF cTnI DISTRIBUTION IN A REFERENCE POPULATION, HAS BEEN CONFIRMED THE DECISION THRESHOLD FOR GA DIAGNOSIS. Performed By: #### C MADM #### [facility] [address] [place] [address] Dr. Maru Disla REDD 269 ng/mL Critically high 9-82 [facility] Comment on above: Performed By: #### C MADM #### [facility] [address] [place] [address] Dr. Maru Disla CBC AUTO DIFFon 04-08-2022 BASO # 0.0 103/ul Normal 0.0-0.1 [facility] Comment on above: Performed By: #### M ALBR #### [facility] [address] [address] [address] Maru Disla Basophils/100 WBC (Bld) 0.2 % Normal 0.2-2.0 [facility] Comment on above: Performed By: #### M ALBR #### [facility] [address] [place] [address] Dr. Maru Disla EO # 0.0 103/ul Normal 0.0-0.7 [facility] Comment on above: Performed By: #### M ALBR #### [facility] [address] [place] [address] Dr. Maru Disla Eosinophils/100 WBC (Bld) 0.0 % Critically low 0.9-7.0 [facility] Comment on above: Performed By: #### M ALBR #### [facility] [address] [place] [address] Dr. Maru Disla Erythrocyte distribution width (RBC) [Ratio] 13.4 % Normal 11.0-15.0 [facility] Comment on above: Performed By: #### M ALBR #### [facility] [address] [place] [address] Dr. Maru Disla Hematocrit (Bld) [Volume fraction] 52.7 % Critically high 36.0-48.0 [facility] Comment on above: Performed By: #### M ALBR #### [facility] [address] [place] [address] Dr. Maru Disla Hemoglobin (Bld) [Mass/Vol] 16.8 g/dL Critically high 12.0-16.0 [facility] Comment on above: Performed By: #### M ALBR #### [facility] [address] [place] [address] Dr. Maru Disla IG # 0.13 10e3/ul Critically high 0.00-0.03 [facility] Comment on above: Performed By: #### M ALBR #### [facility] [address] [place] [address] Dr. Maru Disla IG % 0.6 % Critically high 0.0-0.5 [facility] Comment on above: Performed By: #### M ALBR #### [facility] [address] [address] [address] Maru Disla LYMPH # 0.8 103/ul Critically low 1.2-3.8 [facility] Comment on above: Performed By: #### M ALBR #### [facility] [address] [address] [address] Maru Disla Lymphocytes/100 WBC (Bld) 3.4 % Critically low 20.5-60.0 [facility] Comment on above: Performed By: #### M ALBR #### [facility] [address] [address] [address] Maru Disla MANUAL DIFF REQ NO Normal [facility] Comment on above: Performed By: #### M ALBR #### [facility] [address] [place] [address] Dr. Maru Disla MCH (RBC) [Entitic mass] 29.4 pg Normal 26.7-34.0 [facility] Comment on above: Performed By: #### M ALBR #### [facility] [address] [address] [address] Maru Disla MCHC (RBC) [Mass/Vol] 31.9 g/dL Normal 29.9-35.2 [facility] Comment on above: Performed By: #### M ALBR #### [facility] [address] [place] [address] Dr. Maru Disla MCV (RBC) [Entitic vol] 92.1 fL Normal 81.0-99.0 [facility] Comment on above: Performed By: #### M ALBR #### [facility] [address] [address] [address] Maru Disla MONO # 0.8 103/ul Normal 0.3-0.8 [facility] Comment on above: Performed By: #### M ALBR #### [facility] [address] [address] [address] Maru Disla Monocytes/100 WBC (Bld) 3.4 % Normal 1.7-12.0 [facility] Comment on above: Performed By: #### M ALBR #### [facility] [address] [address] [address] Maru Disla NEUT # 21.8 103/ul Critically high 1.4-6.5 [facility] Comment on above: Performed By: #### M ALBR #### [facility] [address] [address] [address] Maru Disla Neutrophils/100 WBC (Bld) 92.4 % Critically high 43.0-75.0 [facility] Comment on above: Performed By: #### M ALBR #### [facility] [address] [address] [address] Maru Disla Platelet mean volume (Bld) [Entitic vol] 10.4 fL Normal 9.5-13.5 [facility] Comment on above: Performed By: #### M ALBR #### [facility] [address] [place] [address] Dr. Maur Disla PLT 335 103/ul Normal 150-450 [facility] Comment on above: Performed By: #### M ALBR #### [facility] [address] [place] [address] Dr. Maru Disla RBC 5.72 106/ul Critically high 4.20-5.40 [facility] Comment on above: Performed By: #### M ALBR #### [facility] [address] [place] [address] Dr. Maru Disla WBC 23.5 103/ul Critically high 4.0-11.0 [facility] Comment on above: Performed By: #### M ALBR #### [facility] [address] [place] [address] Dr. Maru Disla POINT OF CARE GLUCOSEon - Glucose [Mass/Vol] 275 mg/dL Critically high 74-106 [facility] Comment on above: Performed By: #### P OCGLUC #### [facility] [address] [place] [address] Dr. Maru Disla Glucose [Mass/Vol] 161 mg/dL Critically high 74-106 [facility] Comment on above: Performed By: #### B MP #### [facility] [address] [address] [address] Maru Disla Glucose [Mass/Vol] 140 mg/dL Critically high 74-106 [facility] Comment on above: Performed By: #### P OCGLUC #### [facility] [address] [address] [address] Maru Disla Glucose [Mass/Vol] 219 mg/dL Critically high 74-106 [facility] Comment on above: Performed By: #### P OCGLUC #### [facility] [address] [place] [address] Dr. Maru Disla PROF CHEM 8 (BAS METB)on Anion gap [Moles/Vol] 14.0 mmol/L Normal [facility] Comment on above: Performed By: #### M ALBR #### [facility] [address] [place] [address] Dr. Maru Disla Calcium [Mass/Vol] 9.3 mg/dL Normal 8.5-10.1 [facility] Comment on above: Performed By: #### M ALBR #### [facility] [address] [place] [address] Dr. Maru Disla Chloride [Moles/Vol] 98 mmol/L Normal 98-107 [facility] Comment on above: Performed By: #### M ALBR #### [facility] [address] [place] [address] Dr. Maru Disla CO2 [Moles/Vol] 30.5 mmol/L Normal 21.0-32.0 [facility] Comment on above: Performed By: #### M ALBR #### [facility] [address] [place] [address] Dr. Maru Disla Creatinine [Mass/Vol] 1.09 mg/dL Critically high 0.55-1.02 [facility] Comment on above: Performed By: #### M ALBR #### [facility] [address] [place] [address] Dr. Maru Disla EGFR-AF EMIRATI >60 Normal >=60 [facility] Comment on above: Performed By: #### M ALBR #### [facility] [address] [address] [address] Maru Disla EGFR-NON AF EMIRATI 51 mL/min/1.73m2 Critically low >=60 [facility] Comment on above: Performed By: #### M ALBR #### [facility] [address] [address] [address] Maru Disla Glucose [Mass/Vol] 242 mg/dL Critically high 74-106 [facility] Comment on above: Performed By: #### M ALBR #### [facility] [address] [address] [address] Maru Disla Potassium [Moles/Vol] 3.5 mmol/L Normal 3.5-5.1 [facility] Comment on above: Performed By: #### M ALBR #### [facility] [address] [place] [address] Dr. Maru Disla Sodium [Moles/Vol] 139 mmol/L Normal 136-145 [facility] Comment on above: Performed By: #### M ALBR #### [facility] [address] [address] [address] Maru Disla Urea nitrogen [Mass/Vol] 32.0 mg/dL Critically high 7.0-18.0 [facility] Comment on above: Performed By: #### M ALBR #### [facility] [address] [address] [address] Maru Disla Urea nitrogen/Creatinine [Mass ratio] 29.4 mg/mg Normal [facility] Comment on above: Performed By: #### M ALBR #### [facility] [address] [address] [address] Maru Disla CBC AUTO DIFFon 04-07-2022 BASO # 0.0 103/ul Normal 0.0-0.1 [facility] Comment on above: Performed By: #### P OCGLUC #### [facility] [address] [address] [address] Maru Disla Basophils/100 WBC (Bld) 0.2 % Normal 0.2-2.0 [facility] Comment on above: Performed By: #### P OCGLUC #### [facility] [address] [address] [address] Maru Disla EO # 0.0 103/ul Normal 0.0-0.7 [facility] Comment on above: Performed By: #### P OCGLUC #### [facility] [address] [address] [address] Maru Disla Eosinophils/100 WBC (Bld) 0.0 % Critically low 0.9-7.0 [facility] Comment on above: Performed By: #### P OCGLUC #### [facility] [address] [address] [address] Maru Disla Erythrocyte distribution width (RBC) [Ratio] 13.6 % Normal 11.0-15.0 [facility] Comment on above: Performed By: #### P OCGLUC #### [facility] [address] [place] [address] Dr. Maru Disla Hematocrit (Bld) [Volume fraction] 48.1 % Critically high 36.0-48.0 [facility] Comment on above: Performed By: #### P OCGLUC #### [facility] [address] [place] [address] Dr. Maru Disla Hemoglobin (Bld) [Mass/Vol] 14.7 g/dL Normal 12.0-16.0 [facility] Comment on above: Performed By: #### P OCGLUC #### [facility] [address] [address] [address] Maru Disla IG # 0.16 10e3/ul Critically high 0.00-0.03 [facility] Comment on above: Performed By: #### P OCGLUC #### [facility] [address] [address] [address] Maru Disla IG % 0.6 % Critically high 0.0-0.5 [facility] Comment on above: Performed By: #### P OCGLUC #### [facility] [address] [address] [address] Maru Disla LYMPH # 1.0 103/ul Critically low 1.2-3.8 [facility] Comment on above: Performed By: #### P OCGLUC #### [facility] [address] [address] [address] Maru Disla Lymphocytes/100 WBC (Bld) 4.1 % Critically low 20.5-60.0 [facility] Comment on above: Performed By: #### P OCGLUC #### [facility] [address] [address] [address] Maru Disla MANUAL DIFF REQ NO Normal [facility] Comment on above: Performed By: #### P OCGLUC #### [facility] [address] [address] [address] Maru Disla MCH (RBC) [Entitic mass] 29.4 pg Normal 26.7-34.0 [facility] Comment on above: Performed By: #### P OCGLUC #### [facility] [address] [place] [address] Dr. Maru Disla MCHC (RBC) [Mass/Vol] 30.6 g/dL Normal 29.9-35.2 [facility] Comment on above: Performed By: #### P OCGLUC #### [facility] [address] [place] [address] Dr. Maru Disla MCV (RBC) [Entitic vol] 96.2 fL Normal 81.0-99.0 [facility] Comment on above: Performed By: #### P OCGLUC #### [facility] [address] [place] [address] Dr. Maru Disla MONO # 0.8 103/ul Normal 0.3-0.8 [facility] Comment on above: Performed By: #### P OCGLUC #### [facility] [address] [place] [address] Dr. Maru Disla Monocytes/100 WBC (Bld) 3.2 % Normal 1.7-12.0 [facility] Comment on above: Performed By: #### P OCGLUC #### [facility] [address] [place] [address] Dr. Maru Disla NEUT # 23.1 103/ul Critically high 1.4-6.5 [facility] Comment on above: Performed By: #### P OCGLUC #### [facility] [address] [address] [address] Maru Disla Neutrophils/100 WBC (Bld) 91.9 % Critically high 43.0-75.0 [facility] Comment on above: Performed By: #### P OCGLUC #### [facility] [address] [address] [address] Maru Disla Platelet mean volume (Bld) [Entitic vol] 10.5 fL Normal 9.5-13.5 [facility] Comment on above: Performed By: #### P OCGLUC #### [facility] [address] [address] [address] Maru Disla PLT 300 103/ul Normal 150-450 [facility] Comment on above: Performed By: #### P OCGLUC #### [facility] [address] [address] [address] Maru Disla RBC 5.00 106/ul Normal 4.20-5.40 [facility] Comment on above: Performed By: #### P OCGLUC #### [facility] [address] [address] [address] Maru Disla WBC 25.1 103/ul Critically high 4.0-11.0 [facility] Comment on above: Performed By: #### P OCGLUC #### [facility] [address] [address] [address] Maru Disla POINT OF CARE GLUCOSEon Glucose [Mass/Vol] 247 mg/dL Critically high 74-106 [facility] Comment on above: Performed By: #### B MP #### [facility] [address] [address] [address] Maru Disla Glucose [Mass/Vol] 182 mg/dL Critically high -106 [facility] Comment on above: Performed By: #### A BG #### [facility] [address] [address] [address] Maru Disla Glucose [Mass/Vol] 177 mg/dL Critically high 74-106 [facility] Comment on above: Performed By: #### P OCGLUC #### [facility] [address] [address] [address] Maru Disla Glucose [Mass/Vol] 191 mg/dL Critically high 74-106 [facility] Comment on above: Performed By: #### P OCGLUC #### [facility] [address] [address] [address] Maru Disla PROF CHEM 8 (BAS METB)on Anion gap [Moles/Vol] 11.4 mmol/L Normal [facility] Comment on above: Performed By: #### M ALBR #### [facility] [address] [place] [address] Dr. Maru Disla Calcium [Mass/Vol] 8.9 mg/dL Normal 8.5-10.1 [facility] Comment on above: Performed By: #### M ALBR #### [facility] [address] [place] [address] Dr. Maru Disla Chloride [Moles/Vol] 108 mmol/L Critically high 98-107 [facility] Comment on above: Performed By: #### M ALBR #### [facility] [address] [place] [address] Dr. Maru Disla CO2 [Moles/Vol] 27.9 mmol/L Normal 21.0-32.0 [facility] Comment on above: Performed By: #### M ALBR #### [facility] [address] [place] [address] Dr. Maru Disla Creatinine [Mass/Vol] 0.84 mg/dL Normal 0.55-1.02 [facility] Comment on above: Performed By: #### M ALBR #### [facility] [address] [place] [address] Dr. Maru Disla EGFR-AF EMIRATI >60 Normal >=60 [facility] Comment on above: Performed By: #### M ALBR #### [facility] [address] [place] [address] Dr. Maru Disla EGFR-NON AF EMIRATI >60 Normal >=60 [facility] Comment on above: Performed By: #### M ALBR #### [facility] [address] [address] [address] Maru Disla Glucose [Mass/Vol] 202 mg/dL Critically high 74-106 [facility] Comment on above: Performed By: #### M ALBR #### [facility] [address] [address] [address] Maru Disla Potassium [Moles/Vol] 4.3 mmol/L Normal 3.5-5.1 [facility] Comment on above: Performed By: #### M ALBR #### [facility] [address] [address] [address] Maru Disla Sodium [Moles/Vol] 143 mmol/L Normal 136-145 [facility] Comment on above: Performed By: #### M ALBR #### [facility] [address] [address] [address] Maru Disla Urea nitrogen [Mass/Vol] 26.0 mg/dL Critically high 7.0-18.0 [facility] Comment on above: Performed By: #### M ALBR #### [facility] [address] [address] [address] Maru Disla Urea nitrogen/Creatinine [Mass ratio] 31.0 mg/mg Normal [facility] Comment on above: Performed By: #### M ALBR #### [facility] [address] [address] [address] Maru Disla CBC AUTO DIFFon 04-06-2022 BASO # 0.0 103/ul Normal 0.0-0.1 [facility] Comment on above: Performed By: #### B MP #### [facility] [address] [address] [address] Maru Disla Basophils/100 WBC (Bld) 0.1 % Critically low 0.2-2.0 [facility] Comment on above: Performed By: #### B MP #### [facility] [address] [address] [address] Maru Disla EO # 0.0 103/ul Normal 0.0-0.7 [facility] Comment on above: Performed By: #### B MP #### [facility] [address] [place] [address] Dr. Maru Disla Eosinophils/100 WBC (Bld) 0.1 % Critically low 0.9-7.0 [facility] Comment on above: Performed By: #### B MP #### [facility] [address] [place] [address] Dr. Maru Disla Erythrocyte distribution width (RBC) [Ratio] 13.4 % Normal 11.0-15.0 [facility] Comment on above: Performed By: #### B MP #### [facility] [address] [place] [address] Dr. Maru Disla Hematocrit (Bld) [Volume fraction] 48.5 % Critically high 36.0-48.0 [facility] Comment on above: Performed By: #### B MP #### [facility] [address] [place] [address] Dr. Maru Disla Hemoglobin (Bld) [Mass/Vol] 15.5 g/dL Normal 12.0-16.0 [facility] Comment on above: Performed By: #### B MP #### [facility] [address] [place] [address] Dr. Maru Disla IG # 0.09 10e3/ul Critically high 0.00-0.03 [facility] Comment on above: Performed By: #### B MP #### [facility] [address] [place] [address] Dr. Maru Disla IG % 0.5 % Normal 0.0-0.5 [facility] Comment on above: Performed By: #### B MP #### [facility] [address] [place] [address] Dr. Maru Disla LYMPH # 0.9 103/ul Critically low 1.2-3.8 [facility] Comment on above: Performed By: #### B MP #### [facility] [address] [place] [address] Dr. Maru Disla Lymphocytes/100 WBC (Bld) 4.5 % Critically low 20.5-60.0 [facility] Comment on above: Performed By: #### B MP #### [facility] [address] [place] [address] Dr. Maru Disla MANUAL DIFF REQ NO Normal [facility] Comment on above: Performed By: #### B MP #### [facility] [address] [place] [address] Dr. Maru Disla MCH (RBC) [Entitic mass] 30.0 pg Normal 26.7-34.0 [facility] Comment on above: Performed By: #### B MP #### [facility] [address] [place] [address] Dr. Maru Disla MCHC (RBC) [Mass/Vol] 32.0 g/dL Normal 29.9-35.2 [facility] Comment on above: Performed By: #### B MP #### [facility] [address] [place] [address] Dr. Maru Disla MCV (RBC) [Entitic vol] 93.8 fL Normal 81.0-99.0 [facility] Comment on above: Performed By: #### B MP #### [facility] [address] [place] [address] Dr. Maru Disla MONO # 0.7 103/ul Normal 0.3-0.8 [facility] Comment on above: Performed By: #### B MP #### [facility] [address] [place] [address] Dr. Maru Disla Monocytes/100 WBC (Bld) 3.5 % Normal 1.7-12.0 [facility] Comment on above: Performed By: #### B MP #### [facility] [address] [place] [address] Dr. Maru Disla NEUT # 18.2 103/ul Critically high 1.4-6.5 [facility] Comment on above: Performed By: #### B MP #### [facility] [address] [place] [address] Dr. Maru Disla Neutrophils/100 WBC (Bld) 91.3 % Critically high 43.0-75.0 [facility] Comment on above: Performed By: #### B MP #### [facility] [address] [address] [address] Maru Disla Platelet mean volume (Bld) [Entitic vol] 11.2 fL Normal 9.5-13.5 [facility] Comment on above: Performed By: #### B MP #### [facility] [address] [address] [address] Maru Disla PLT 232 103/ul Normal 150-450 [facility] Comment on above: Performed By: #### B MP #### [facility] [address] [address] [address] Maru Disla RBC 5.17 106/ul Normal 4.20-5.40 [facility] Comment on above: Performed By: #### B MP #### [facility] [address] [place] [address] Dr. Maru Disla WBC 19.9 103/ul Critically high 4.0-11.0 [facility] Comment on above: Performed By: #### B MP #### [facility] [address] [address] [address] Maru Disla POINT OF CARE GLUCOSEon - Glucose [Mass/Vol] 199 mg/dL Critically high -106 [facility] Comment on above: Performed By: #### P OCGLUC #### [facility] [address] [address] [address] Maru Disla Glucose [Mass/Vol] 109 mg/dL Critically high 74-106 [facility] Comment on above: Performed By: #### A BG #### [facility] [address] [address] [address] Maru Disla Glucose [Mass/Vol] 253 mg/dL Critically high -106 [facility] Comment on above: Performed By: #### P OCGLUC #### [facility] [address] [address] [address] Maru Disla Glucose [Mass/Vol] 194 mg/dL Critically high -106 [facility] Comment on above: Performed By: #### B MP #### [facility] [address] [address] [address] Maru Disla PROF CHEM 8 (BAS METB)on Anion gap [Moles/Vol] 11.2 mmol/L Normal Th [facility] Comment on above: Performed By: #### B MP #### [facility] [address] [address] [address] Maru Disla Calcium [Mass/Vol] 8.8 mg/dL Normal 8.5-10.1 [facility] Comment on above: Performed By: #### B MP #### [facility] [address] [address] [address] Maru Disla Chloride [Moles/Vol] 105 mmol/L Normal 98-107 [facility] Comment on above: Performed By: #### B MP #### [facility] [address] [address] [address] Maru Disla CO2 [Moles/Vol] 26.8 mmol/L Normal 21.0-32.0 [facility] Comment on above: Performed By: #### B MP #### [facility] [address] [address] [address] Maru Disla Creatinine [Mass/Vol] 0.66 mg/dL Normal 0.55-1.02 [facility] Comment on above: Performed By: #### B MP #### [facility] [address] [address] [address] Maru Disla EGFR-AF EMIRATI >60 Normal >=60 [facility] Comment on above: Performed By: #### B MP #### [facility] [address] [address] [address] Maru Disla EGFR-NON AF EMIRATI >60 Normal >=60 [facility] Comment on above: Performed By: #### B MP #### [facility] [address] [address] [address] Maru Disla Glucose [Mass/Vol] 191 mg/dL Critically high 74-106 [facility] Comment on above: Performed By: #### B MP #### [facility] [address] [address] [address] Maru Disla Potassium [Moles/Vol] 5.0 mmol/L Normal 3.5-5.1 [facility] Comment on above: Performed By: #### B MP #### [facility] [address] [address] [address] Maru Disla Sodium [Moles/Vol] 138 mmol/L Normal 136-145 [facility] Comment on above: Performed By: #### B MP #### [facility] [address] [address] [address] Maru Disla Urea nitrogen [Mass/Vol] 21.0 mg/dL Critically high 7.0-18.0 [facility] Comment on above: Performed By: #### B MP #### [facility] [address] [address] [address] Maru Disla Urea nitrogen/Creatinine [Mass ratio] 31.8 mg/mg Normal [facility] Comment on above: Performed By: #### B MP #### [facility] [address] [address] [address] Maru Disla XR CHEST 2 Von [...] Normal The [facility] BLOOD GASES BTYon 04-05-2022 02 MODE NASAL CANNULA Normal [facility] Comment on above: Performed By: #### A BG #### [facility] [address] [address] [address] Maru Disla ALLENS TEST Positive Normal The [facility] Comment on above: Performed By: #### A BG #### [facility] [address] [address] [address] Maru Disla Base excess Calc (Bld) [Moles/Vol] -1.6000 mmol/L Normal -2.0-2.0 [facility] Comment on above: Performed By: #### A BG #### [facility] [address] [address] [address] Maru Disla BIPAP PRESSURE [facility] Comment on above: Performed By: #### A BG #### [facility] [address] [place] [address] Dr. Maru Disla CPAP [facility] Comment on above: Performed By: #### A BG #### [facility] [address] [place] [address] Dr. Maru Disla FIO2 [facility] Comment on above: Performed By: #### A BG #### [facility] [address] [address] [address] Maru Disla HCO3 (Bld) [Moles/Vol] 24.0 mmol/L Normal 22.0-26.0 [facility] Comment on above: Performed By: #### A BG #### [facility] [address] [place] [address] Dr. Maru Disla LPM 2 [facility] Comment on above: Performed By: #### A BG #### [facility] [address] [place] [address] Dr. Maru Disla MINUTE VOLUME Normal [facility] Comment on above: Performed By: #### A BG #### [facility] [address] [place] [address] Dr. Maru Disla Oxygen (Bld) [Partial pressure] 56.1 mm[Hg] Critically low 80.0-100.0 [facility] Comment on above: Performed By: #### A BG #### [facility] [address] [place] [address] Dr. Maru Disla Oxygen saturation in Blood 89.9 % Critically low 95.0-100.0 [facility] Comment on above: Performed By: #### A BG #### [facility] [address] [address] [address] Maru Disla PCO2 43.3 mmHg Normal 35.0-45.0 [facility] Comment on above: Performed By: #### A BG #### [facility] [address] [place] [address] Dr. Maru Disla PEEP [facility] Comment on above: Performed By: #### A BG #### [facility] [address] [place] [address] Dr. Maru Disla pH (Bld) 7.352 [pH] Normal 7.350-7.450 [facility] Comment on above: Performed By: #### A BG #### [facility] [address] [place] [address] Dr. Maru Disla [facility] Comment on above: Performed By: #### A BG #### [facility] [address] [place] [address] Dr. Maru Disla [facility] Comment on above: Performed By: #### A BG #### [facility] [address] [place] [address] Dr. Maru Disla PUNCTURE SITE LR [facility] Comment on above: Performed By: #### A BG #### [facility] [address] [place] [address] Dr. Maru Disla RATE [facility] Comment on above: Performed By: #### A BG #### [facility] [address] [place] [address] Dr. Maru Disla VENT MODE [facility] Comment on above: Performed By: #### A BG #### [facility] [address] [place] [address] Dr. Maru Disla [facility] Comment on above: Performed By: #### A BG #### [facility] [address] [place] [address] Dr. Maru Disla BNPon 04-05-2022 Natriuretic peptide B (Bld) [Mass/Vol] 471.0 pg/mL Normal <=900.0 [facility] Comment on above: Performed By: #### P OCGLUC #### [facility] [address] [address] [address] Maru Disla CBC AUTO DIFFon 04-05-2022 BASO # 0.0 103/ul Normal 0.0-0.1 [facility] Comment on above: Performed By: #### B MP #### [facility] [address] [address] [address] Maru Disla Basophils/100 WBC (Bld) 0.3 % Normal 0.2-2.0 [facility] Comment on above: Performed By: #### B MP #### [facility] [address] [address] [address] Maru Disla EO # 0.0 103/ul Normal 0.0-0.7 [facility] Comment on above: Performed By: #### B MP #### [facility] [address] [place] [address] Dr. Maru Disla Eosinophils/100 WBC (Bld) 0.0 % Critically low 0.9-7.0 [facility] Comment on above: Performed By: #### B MP #### [facility] [address] [place] [address] Dr. Maru Disla Erythrocyte distribution width (RBC) [Ratio] 13.2 % Normal 11.0-15.0 [facility] Comment on above: Performed By: #### B MP #### [facility] [address] [place] [address] Dr. Maru Disla Hematocrit (Bld) [Volume fraction] 52.3 % Critically high 36.0-48.0 [facility] Comment on above: Performed By: #### B MP #### [facility] [address] [place] [address] Dr. Maru Disla Hemoglobin (Bld) [Mass/Vol] 16.6 g/dL Critically high 12.0-16.0 [facility] Comment on above: Performed By: #### B MP #### [facility] [address] [place] [address] Dr. Maru Disla IG # 0.05 10e3/ul Critically high 0.00-0.03 [facility] Comment on above: Performed By: #### B MP #### [facility] [address] [place] [address] Dr. Maru Disla IG % 0.4 % Normal 0.0-0.5 [facility] Comment on above: Performed By: #### B MP #### [facility] [address] [place] [address] Dr. Maru Disla LYMPH # 1.5 103/ul Normal 1.2-3.8 [facility] Comment on above: Performed By: #### B MP #### [facility] [address] [place] [address] Dr. Maru Disla Lymphocytes/100 WBC (Bld) 10.7 % Critically low 20.5-60.0 [facility] Comment on above: Performed By: #### B MP #### [facility] [address] [place] [address] Dr. Maru Disla MANUAL DIFF REQ NO Normal [facility] Comment on above: Performed By: #### B MP #### [facility] [address] [place] [address] Dr. Maru Disla MCH (RBC) [Entitic mass] 29.7 pg Normal 26.7-34.0 [facility] Comment on above: Performed By: #### B MP #### [facility] [address] [place] [address] Dr. Maru Disla MCHC (RBC) [Mass/Vol] 31.7 g/dL Normal 29.9-35.2 [facility] Comment on above: Performed By: #### B MP #### [facility] [address] [place] [address] Dr. Maru Disla MCV (RBC) [Entitic vol] 93.6 fL Normal 81.0-99.0 [facility] Comment on above: Performed By: #### B MP #### [facility] [address] [place] [address] Dr. Maru Disla MONO # 1.5 103/ul Critically high 0.3-0.8 [facility] Comment on above: Performed By: #### B MP #### [facility] [address] [address] [address] Maru Disla Monocytes/100 WBC (Bld) 11.0 % Normal 1.7-12.0 [facility] Comment on above: Performed By: #### B MP #### [facility] [address] [address] [address] Maru Disla NEUT # 10.8 103/ul Critically high 1.4-6.5 [facility] Comment on above: Performed By: #### B MP #### [facility] [address] [address] [address] Maru Disla Neutrophils/100 WBC (Bld) 77.6 % Critically high 43.0-75.0 [facility] Comment on above: Performed By: #### B MP #### [facility] [address] [place] [address] Dr. Maru Disla Platelet mean volume (Bld) [Entitic vol] 10.1 fL Normal 9.5-13.5 [facility] Comment on above: Performed By: #### B MP #### [facility] [address] [place] [address] Dr. Maru Disla PLT 315 103/ul Normal 150-450 [facility] Comment on above: Performed By: #### B MP #### [facility] [address] [place] [address] Dr. Maru Disla RBC 5.59 106/ul Critically high 4.20-5.40 [facility] Comment on above: Performed By: #### B MP #### [facility] [address] [place] [address] Dr. Maru Disla WBC 13.9 103/ul Critically high 4.0-11.0 [facility] Comment on above: Performed By: #### B MP #### [facility] [address] [place] [address] Dr. Maru Disla CULTURE BLOODon 04-05-2022 Microscopic examination of blood, culture Culture Observations: NO GROWTH AT 5 DAYS. Normal The [facility] Comment on above: Performed By: #### B MP #### [facility] [address] [place] [address] Dr. Maru Disla [facility]on SARS-CoV-2 (COVID-19) RNA NICOLETTE+probe Ql (Unsp spec) Not detected Normal NOT DETECTED [facility] Comment on above: Result Comment: When diagnostic [...] for this test is supported by the [employer] of Health and Human Service's declaration that [...] ALBR #### [facility] [address] [place] [address] Dr. Maru Disla INFLUENZA A AND B AGon 04-05 INFLUENZA A AG Negative Normal NEGATIVE SEE COMMENT [facility] Comment on above: Performed By: #### P OCGLUC #### [facility] [address] [place] [address] Dr. Maru Disla INFLUENZA B AG Negative Normal NEGATIVE SEE COMMENT [facility] Comment on above: Performed By: #### P OCGLUC #### [facility] [address] [place] [address] Dr. Maru Disla INTERNAL CONTROLS Within Normal Limits Normal Wi thin Normal Limits [facility] Comment on above: Performed By: #### P OCGLUC #### [facility] [address] [place] [address] Dr. Maru Disla LACTATE/LACTIC ACIDon 2021 Lactate [Moles/Vol] 3.1 mmol/L Critically high 0.4-1.9 [facility] Comment on above: Performed By: #### L ACT #### [facility] [address] [place] [address] Dr. Maru Disla Lactate [Moles/Vol] 3.1 mmol/L Critically high 0.4-1.9 [facility] Comment on above: Performed By: #### B MP #### [facility] [address] [place] [address] Dr. Maru Disla POINT OF CARE GLUCOSEon 11-0 Glucose [Mass/Vol] 290 mg/dL Critically high 74-106 [facility] Comment on above: Performed By: #### M ALBR #### [facility] [address] [place] [address] Dr. Maru Disla Glucose [Mass/Vol] 309 mg/dL Critically high 74-106 [facility] Comment on above: Performed By: #### A BG #### [facility] [address] [place] [address] Dr. Maru Disla Glucose [Mass/Vol] 289 mg/dL Critically high 74-106 [facility] Comment on above: Performed By: #### P OCGLUC #### [facility] [address] [place] [address] Dr. Maru Disla Glucose [Mass/Vol] 325 mg/dL Critically high -106 [facility] Comment on above: Performed By: #### M ALBR #### [facility] [address] [place] [address] Dr. Maru Disla PROF 14(COMP METB)on 022 Albumin [Mass/Vol] 3.3 g/dL Critically low 3.4-5.0 [facility] Comment on above: Performed By: #### P OCGLUC #### [facility] [address] [place] [address] Dr. Maru Disla Albumin/Globulin [Mass ratio] 0.7 {ratio} Normal [facility] Comment on above: Performed By: #### P OCGLUC #### [facility] [address] [place] [address] Dr. Maru Disla ALP [Catalytic activity/Vol] 105 U/L Normal 46-116 [facility] Comment on above: Performed By: #### P OCGLUC #### [facility] [address] [address] [address] Maru Disla ALT [Catalytic activity/Vol] 15 U/L Normal 14-59 [facility] Comment on above: Performed By: #### P OCGLUC #### [facility] [address] [address] [address] Maru Disla Anion gap [Moles/Vol] 13.2 mmol/L Normal Th [facility] Comment on above: Performed By: #### P OCGLUC #### [facility] [address] [address] [address] Maru Disla AST [Catalytic activity/Vol] 12 U/L Critically low 15-37 [facility] Comment on above: Performed By: #### P OCGLUC #### [facility] [address] [address] [address] Maru Disla Bilirubin [Mass/Vol] 0.4 mg/dL Normal 0.2-1.0 [facility] Comment on above: Performed By: #### P OCGLUC #### [facility] [address] [address] [address] Maru Disla Calcium [Mass/Vol] 8.8 mg/dL Normal 8.5-10.1 [facility] Comment on above: Performed By: #### P OCGLUC #### [facility] [address] [address] [address] Maru Disla Chloride [Moles/Vol] 101 mmol/L Normal 98-107 [facility] Comment on above: Performed By: #### P OCGLUC #### [facility] [address] [address] [address] Maru Disla CO2 [Moles/Vol] 26.0 mmol/L Normal 21.0-32.0 [facility] Comment on above: Performed By: #### P OCGLUC #### [facility] [address] [address] [address] Maru Disla Creatinine [Mass/Vol] 1.03 mg/dL Critically high 0.55-1.02 [facility] Comment on above: Performed By: #### P OCGLUC #### [facility] [address] [address] [address] Maru Disla EGFR-AF EMIRATI >60 Normal >=60 [facility] Comment on above: Performed By: #### P OCGLUC #### [facility] [address] [address] [address] Maru Disla EGFR-NON AF EMIRATI 54 mL/min/1.73m2 Critically low >=60 [facility] Comment on above: Performed By: #### P OCGLUC #### [facility] [address] [address] [address] Maru Disla Globulin (S) [Mass/Vol] 4.5 g/dL Normal [facility] Comment on above: Performed By: #### P OCGLUC #### [facility] [address] [address] [address] Maru Disla Glucose [Mass/Vol] 264 mg/dL Critically high 74-106 [facility] Comment on above: Performed By: #### P OCGLUC #### [facility] [address] [address] [address] Maru Disla Potassium [Moles/Vol] 4.2 mmol/L Normal 3.5-5.1 [facility] Comment on above: Performed By: #### P OCGLUC #### [facility] [address] [address] [address] Maru Disla Protein [Mass/Vol] 7.8 g/dL Normal 6.4-8.2 [facility] Comment on above: Performed By: #### P OCGLUC #### [facility] [address] [address] [address] Maru Disla Sodium [Moles/Vol] 136 mmol/L Normal 136-145 [facility] Comment on above: Performed By: #### P OCGLUC #### [facility] [address] [address] [address] Maru Disla Urea nitrogen [Mass/Vol] 14.0 mg/dL Normal 7.0-18.0 [facility] Comment on above: Performed By: #### P OCGLUC #### [facility] [address] [place] [address] Dr. Maru Disla Urea nitrogen/Creatinine [Mass ratio] 13.6 mg/mg Normal [facility] Comment on above: Performed By: #### P OCGLUC #### [facility] [address] [address] [address] Maru Disla TROPONIN, HIGH SENSITIVITYon 04-05-2022 HSTROP 10.5 pg/mL Normal 4.0-51.3 [facility] Comment on above: Result Comment: CUT- OFF POINTS HAVE BEEN ESTABLISHED BASED ON THE FOURTH UNIVERSAL DEFINITIONS OF MYOCARDIAL INFARCTION. THE UPPER REFERENCE LIMIT (URL) OF TROPONIN, DEFINED THE 99TH PERCENTILE OF cTnI DISTRIBUTION IN A REFERENCE POPULATION, HAS BEEN CONFIRMED THE DECISION THRESHOLD FOR GA DIAGNOSIS. Performed By: #### A BG #### [facility] [address] [place] [address] Dr. Maru Disla XR CHEST 1 Von [...] by: YECENIA MONTERO Date: 2022-04-05 06:51 Normal [facility] Vital Signs Date Time Vital Sign Value Performing Clinician Facility 12-14-2024 11:31-0400 Body mass index (BMI) [Ratio] 26.95 kg/m2 Maira Rush [employer] Work Phone: [facility] 12-14-2024 11:31-0400 Body temperature 98.1 [degF] Maira Rush GRE[employer] MARK[employer] Work Phone: [facility] 12-14-2024 11:31-0400 Body weight 75.75 kg Maira Rush GRE[employer] MARK[employer]ER Work Phone: [facility] 12-14-2024 11:31-0400 Diastolic blood pressure 80 mm[Hg] Maira Aichholz GRE[employer] MARK[employer]ER Work Phone: [facility] 12-14-2024 11:31-0400 Heart rate 93 /min Maira Aichholz [employer] MARK[employer]ER Work Phone: [facility] 12-14-2024 11:31-0400 Respiratory rate 22 /min Maira Aichholz [employer] MARK[employer] Work Phone: [facility] 12-14-2024 11:31-0400 SaO2% (BldA) [Mass fraction] 93 % Maira Aichholz [employer] MARK[employer]ER Work Phone: [facility] 12-14-2024 11:31-0400 Systolic blood pressure 122 mm[Hg] Maira Aichholz GRE[employer] MARK[employer]ER Work Phone: [facility] 12-01-2024 13:49-0400 Body mass index (BMI) [Ratio] 27.73 kg/m2 Maira Aichholz [employer] MARK[employer]ER Work Phone: [facility] 12-01-2024 13:49-0400 Body temperature 98.29 [degF] Maira Aichholz GRE[employer] MARK[employer]ER Work Phone: [facility] 12-01-2024 13:49-0400 Body weight 77.93 kg Maira Aichholz GRE[employer] MARK[employer]ER Work Phone: [facility] 12-01-2024 13:49-0400 Diastolic blood pressure 70 mm[Hg] Maira Aichholz GRE[employer] MARK[employer]ER Work Phone: [facility] 12-01-2024 13:49-0400 Heart rate 101 /min Maira Aichholz [employer] MARK[employer]ER Work Phone: [facility] 12-01-2024 13:49-0400 Respiratory rate 18 /min Maira Aichholz [employer] MARK[employer]ER Work Phone: [facility] 12-01-2024 13:49-0400 SaO2% (BldA) [Mass fraction] 95 % Maira Aichholz GRE[employer] MARK[employer]ER Work Phone: [facility] 12-01-2024 13:49-0400 Systolic blood pressure 110 mm[Hg] Maira Aichholz GRE[employer] MARK[employer]ER Work Phone: [facility] 10-14-2024 14:25-0400 Body mass index (BMI) [Ratio] 30.38 kg/m2 Maira Aichholz [employer] MARK[employer]ER Work Phone: [facility] 10-14-2024 14:25-0400 Body temperature 98.1 [degF] Maira Yoonholz GRE[employer] MARK[employer]ER Work Phone: [facility] 10-14-2024 14:25-0400 Body weight 85.37 kg Maira Yoonholz GRE[employer] MARK[employer]ER Work Phone: [facility] 10-14-2024 14:25-0400 Diastolic blood pressure 76 mm[Hg] Maira Aichholz GRE[employer] MARK[employer]ER Work Phone: [facility] 10-14-2024 14:25-0400 Heart rate 87 /min Maira Yoonholz GRE[employer] MARK[employer]ER Work Phone: [facility] 10-14-2024 14:25-0400 Respiratory rate 22 /min Maira Aichholz [employer] MARK[employer]ER Work Phone: [facility] 10-14-2024 14:25-0400 SaO2% (BldA) [Mass fraction] 94 % Maira Kenahholz GRE[employer] MARK[employer]ER Work Phone: [facility] 10-14-2024 14:25-0400 Systolic blood pressure 108 mm[Hg] Maira Yoonholz GRE[employer] MARK[employer]ER Work Phone: [facility] 08-06-2024 09:29-0500 Body height 167.6 cm Maira Aichholz GRE[employer] MARK[employer]ER Work Phone: [facility] 08-06-2024 09:29-0500 Body mass index (BMI) [Ratio] 33.86 kg/m2 Maira Aichholz [employer] MARK[employer]ER Work Phone: [facility] 08-06-2024 09:29-0500 Body temperature 98.49 [degF] Maira Deutschz GRE[employer] MARK[employer]ER Work Phone: [facility] 08-06-2024 09:29-0500 Body weight 95.17 kg Maira Deutschz GRE[employer] MARK[employer]ER Work Phone: [facility] 08-06-2024 09:29-0500 Diastolic blood pressure 84 mm[Hg] Maira Ftaouz GRE[employer] MARK[employer]ER Work Phone: [facility] 08-06-2024 09:29-0500 Heart rate 78 /min Maira Fatouz GRE[employer] MARK[employer]ER Work Phone: [facility] 08-06-2024 09:29-0500 Respiratory rate 20 /min Mairatessa Deutschz GRE[employer] MARK[employer]ER Work Phone: [facility] 08-06-2024 09:29-0500 SaO2% (BldA) [Mass fraction] 93 % Mairatessa Deutschz GREEN MARKETER Work Phone: [facility] 08-06-2024 09:29-0500 Systolic blood pressure 140 mm[Hg] Maira Deutschz GRE[employer] MARKETER Work Phone: [facility] 06-09-2024 10:59-0500 Body height 167.6 cm Maira Deutschz GREEN MARKETER Work Phone: [facility] 06-09-2024 10:59-0500 Body mass index (BMI) [Ratio] 33.86 kg/m2 Mairatessa Deutschz GRE[employer] MARK[employer]ER Work Phone: [facility] 06-09-2024 10:59-0500 Body temperature 97.59 [degF] Mairatessa Deutschz GREEN MARKETER Work Phone: [facility] 06-09-2024 10:59-0500 Body weight 95.17 kg Mairatessa Deutschz GREEN MARKETER Work Phone: [facility] Comment on above: steel toe boots on 06-09-2024 10:59-0500 Diastolic blood pressure 68 mm[Hg] Maira Nettlesvaz [employer] MARK[employer]ER Work Phone: [facility] 06-09-2024 10:59-0500 Heart rate 77 /min Maira Aichholz [employer] MARK[employer]ER Work Phone: [facility] 06-09-2024 10:59-0500 Respiratory rate 22 /min Maira Aichholz GRE[employer] MARK[employer]ER Work Phone: [facility] 06-09-2024 10:59-0500 SaO2% (BldA) [Mass fraction] 94 % Maira Aichholz GRE[employer] MARKETER Work Phone: [facility] 06-09-2024 10:59-0500 Systolic blood pressure 118 mm[Hg] Maira Aichholz GREEN MARKETER Work Phone: [facility] 05-28-2024 11:24-0500 Body height 167.6 cm Maira Aichholz GRE[employer] MARK[employer]ER Work Phone: [facility] 05-28-2024 11:24-0500 Body mass index (BMI) [Ratio] 32.83 kg/m2 Maira Kenahholz [employer] MARK[employer]ER Work Phone: [facility] 05-28-2024 11:24-0500 Body temperature 98.1 [degF] Maira Aichholz GRE[employer] MARKETER Work Phone: [facility] 05-28-2024 11:24-0500 Body weight 92.26 kg Maira Kenahholz GREEN MARKETER Work Phone: [facility] 05-28-2024 11:24-0500 Diastolic blood pressure 66 mm[Hg] Maira Aichholz GREEN MARKETER Work Phone: [facility] 05-28-2024 11:24-0500 Heart rate 73 /min Maira Aichholz GRE[employer] MARK[employer]ER Work Phone: [facility] 05-28-2024 11:24-0500 Respiratory rate 22 /min Maira Aichholz GREEN MARKETER Work Phone: [facility] 05-28-2024 11:24-0500 SaO2% (BldA) [Mass fraction] 92 % Maira Aichholz GREEN MARKETER Work Phone: [facility] 05-28-2024 11:24-0500 Systolic blood pressure 110 mm[Hg] Maira Deutschz GREEN MARKETER Work Phone: [facility] 05-19-2024 14:16-0500 Body height 167.6 cm Mairatessa Deutschz GRE[employer] MARKETER Work Phone: [facility] 05-19-2024 14:16-0500 Body mass index (BMI) [Ratio] 33.77 kg/m2 Maira Yoonholz GRE[employer] MARKETER Work Phone: [facility] 05-19-2024 14:16-0500 Body temperature 98.71 [degF] Maira Deutschz GREEN MARKETER Work Phone: [facility] 05-19-2024 14:16-0500 Body weight 94.89 kg Mairatessa Deutschz GREEN MARKETER Work Phone: [facility] 05-19-2024 14:16-0500 Diastolic blood pressure 66 mm[Hg] Maira Yoonholz GREEN MARKETER Work Phone: [facility] 05-19-2024 14:16-0500 Heart rate 71 /min Maira Fatouz GREEN MARKETER Work Phone: [facility] 05-19-2024 14:16-0500 Respiratory rate 18 /min Maira Yoonholz GREEN MARKETER Work Phone: [facility] 05-19-2024 14:16-0500 SaO2% (BldA) [Mass fraction] 93 % Mairatessa Deutschz GREEN MARKETER Work Phone: [facility] 05-19-2024 14:16-0500 Systolic blood pressure 120 mm[Hg] Maira Yoonholz GREEN MARKETER Work Phone: [facility] 05-06-2024 13:32-0500 Body height 167.6 cm Maira Yoonholz GREEN MARKETER Work Phone: [facility] 05-06-2024 13:32-0500 Body mass index (BMI) [Ratio] 33.77 kg/m2 Maira Fatouz GRE[employer] MARKETER Work Phone: [facility] 05-06-2024 13:32-0500 Body temperature 97.81 [degF] Maira Aichholz GREEN MARKETER Work Phone: [facility] 05-06-2024 13:32-0500 Body weight 94.89 kg Maira Aichholz GREEN MARKETER Work Phone: [facility] 05-06-2024 13:32-0500 Diastolic blood pressure 76 mm[Hg] Maira Aichholz GREEN MARKETER Work Phone: [facility] 05-06-2024 13:32-0500 Heart rate 73 /min Maira Aichholz GREEN MARKETER Work Phone: [facility] 05-06-2024 13:32-0500 SaO2% (BldA) [Mass fraction] 97 % Maira Aichholz GREEN MARKETER Work Phone: [facility] 05-06-2024 13:32-0500 Systolic blood pressure 138 mm[Hg] Maira Aichholz GREEN MARKETER Work Phone: [facility] 04-22-2024 09:23-0500 Body height 167.6 cm Maira Aichholz GREEN MARKETER Work Phone: [facility] 04-22-2024 09:23-0500 Body mass index (BMI) [Ratio] 32.44 kg/m2 Maira Aichholz [employer] MARKETER Work Phone: [facility] 04-22-2024 09:23-0500 Body temperature 98.1 [degF] Maira Aichholz GREEN MARKETER Work Phone: [facility] 04-22-2024 09:23-0500 Body weight 91.17 kg Maira Aichholz GREEN MARKETER Work Phone: [facility] 04-22-2024 09:23-0500 Diastolic blood pressure 78 mm[Hg] Maira Aichholz GREEN MARKETER Work Phone: [facility] 04-22-2024 09:23-0500 Heart rate 68 /min Maira Nettlesdominic GRE[employer] MARKETER Work Phone: [facility] 04-22-2024 09:23-0500 Respiratory rate 20 /min Maira Rush GREEN MARKETER Work Phone: [facility] 04-22-2024 09:23-0500 SaO2% (BldA) [Mass fraction] 95 % Maira Nettlesdominic GREEN MARKETER Work Phone: [facility] 04-22-2024 09:23-0500 Systolic blood pressure 122 mm[Hg] Maira Nettlesdominic GREEN MARKETER Work Phone: [facility] 04-21-2024 14:21-0500 Body height 167.6 cm Felton Allison MD Work Phone: [facility] 04-21-2024 14:21-0500 Body mass index (BMI) [Ratio] 33.09 kg/m2 Felton Allison MD Work Phone: [facility] 04-21-2024 14:21-0500 Body weight 92.99 kg Felton Allison MD Work Phone: [facility] 04-21-2024 14:21-0500 Diastolic blood pressure 72 mm[Hg] Felton Allison MD Work Phone: [facility] 04-21-2024 14:21-0500 Heart rate 77 /min Felton Allison MD Work Phone: [facility] 04-21-2024 14:21-0500 Respiratory rate 18 /min Felton Allison MD Work Phone: [facility] 04-21-2024 14:21-0500 Systolic blood pressure 112 mm[Hg] Felton Allison MD Work Phone: [facility] 03-11-2024 10:25-0400 Body height 167.6 cm Maira Escuderodaryn [employer] MARKETER Work Phone: [facility] 03-11-2024 10:25-0400 Body mass index (BMI) [Ratio] 33.28 kg/m2 Maira Yoonholz GRE[employer] MARKETER Work Phone: [facility] 03-11-2024 10:25-0400 Body temperature 98.1 [degF] Maira Kenahholz GRE[employer] MARKETER Work Phone: [facility] 03-11-2024 10:25-0400 Body weight 93.53 kg Maira Kenahholz GREEN MARKETER Work Phone: [facility] 03-11-2024 10:25-0400 Diastolic blood pressure 80 mm[Hg] Maira Kenahholz GRE[employer] MARKETER Work Phone: [facility] 03-11-2024 10:25-0400 Heart rate 71 /min Maira Kenahholz GREEN MARKETER Work Phone: [facility] 03-11-2024 10:25-0400 Respiratory rate 18 /min Maira Kenahholz GREEN MARKETER Work Phone: [facility] 03-11-2024 10:25-0400 SaO2% (BldA) [Mass fraction] 96 % Maira Kenahholz GREEN MARKETER Work Phone: [facility] 03-11-2024 10:25-0400 Systolic blood pressure 122 mm[Hg] Maira Kenahholz GRE[employer] MARKETER Work Phone: [facility] 02-25-2024 10:56-0400 Body height 167.6 cm Maira Kenahholz GREEN MARKETER Work Phone: [facility] 02-25-2024 10:56-0400 Body mass index (BMI) [Ratio] 33.51 kg/m2 Maira Aichholz GRE[employer] MARKETER Work Phone: [facility] 02-25-2024 10:56-0400 Body temperature 98.1 [degF] Maira Kenahholz GRE[employer] MARKETER Work Phone: [facility] 02-25-2024 10:56-0400 Body weight 94.17 kg Maira Kenahholz GRE[employer] MARKETER Work Phone: [facility] 02-25-2024 10:56-0400 Diastolic blood pressure 76 mm[Hg] Maira Aichholz GREEN MARKETER Work Phone: [facility] 02-25-2024 10:56-0400 Heart rate 77 /min Maira Aichholz GREEN MARKETER Work Phone: [facility] 02-25-2024 10:56-0400 Respiratory rate 19 /min Maira Aichholz GREEN MARKETER Work Phone: [facility] 02-25-2024 10:56-0400 SaO2% (BldA) [Mass fraction] 97 % Maira Aichholz GREEN MARKETER Work Phone: [facility] 02-25-2024 10:56-0400 Systolic blood pressure 122 mm[Hg] Maira Aichholz GREEN MARKETER Work Phone: [facility] 02-17-2024 11:07-0400 Body height 167.6 cm Maira Aichholz GREEN MARKETER Work Phone: [facility] 02-17-2024 11:07-0400 Body mass index (BMI) [Ratio] 34.19 kg/m2 Maira Aichholz GRE[employer] MARKETER Work Phone: [facility] 02-17-2024 11:07-0400 Body temperature 98.49 [degF] Maira Aichholz GREEN MARKETER Work Phone: [facility] 02-17-2024 11:07-0400 Body weight 96.07 kg Maira Aichholz GREEN MARKETER Work Phone: [facility] 02-17-2024 11:07-0400 Diastolic blood pressure 82 mm[Hg] Maira Aichholz GREEN MARKETER Work Phone: [facility] 02-17-2024 11:07-0400 Heart rate 78 /min Maira Aichholz GREEN MARKETER Work Phone: [facility] 02-17-2024 11:07-0400 Respiratory rate 19 /min Maira Aichholz GREEN MARKETER Work Phone: [facility] 02-17-2024 11:07-0400 SaO2% (BldA) [Mass fraction] 98 % Maira Victor Manuel GREEN MARKETER Work Phone: [facility] 02-17-2024 11:07-0400 Systolic blood pressure 118 mm[Hg] Maira Fatouz GREEN MARKETER Work Phone: [facility] 07-18-2023 14:27-0500 Body height 167.6 cm Maira Fatouz GREEN MARKETER Work Phone: [facility] 07-18-2023 14:27-0500 Body mass index (BMI) [Ratio] 38.29 kg/m2 Maira Fatouz GREEN MARKETER Work Phone: [facility] 07-18-2023 14:27-0500 Body temperature 98.01 [degF] Maira Victor Manuel GREEN MARKETER Work Phone: [facility] 07-18-2023 14:27-0500 Body weight 107.59 kg Maira Victor Manuel GREEN MARKETER Work Phone: [facility] 07-18-2023 14:27-0500 Diastolic blood pressure 78 mm[Hg] Maira Victor Manuel GREEN MARKETER Work Phone: [facility] 07-18-2023 14:27-0500 Heart rate 79 /min Maira Victor Manuel GREEN MARKETER Work Phone: [facility] 07-18-2023 14:27-0500 Respiratory rate 19 /min Maira Fatouz GREEN MARKETER Work Phone: [facility] 07-18-2023 14:27-0500 SaO2% (BldA) [Mass fraction] 97 % Maira Victor Manuel GREEN MARKETER Work Phone: [facility] 07-18-2023 14:27-0500 Systolic blood pressure 142 mm[Hg] Maira Victor Manuel GREEN MARKETER Work Phone: [facility] Healthcare Encounters Encounter Date Encounter Type Care Provider Facility Start: 01-15-2025 End: 01-15-2025 Emergency department patient visit [facility] Start: 01-14-2025 End: 01-16-2025 Refill Maira Victor Manuel GREEN MARKETER Work Phone: [facility] Comment on above: Vitamin D deficiency (Primary Dx); Primary hypertension ; Edema of extremities; COPD mixed type ([facility]); Type 2 diabetes mellitus with diabetic neuropathy, with long-term current use of insulin ([facility]) Start: 01-08-2025 End: 01-08-2025 Bamboo flowsheet Bob Medina RN [facility] Patient Education Start: 01-08-2025 End: 01-08-2025 Bamboo flowsheet Bob Medina RN [facility] Patient Education Start: 01-08-2025 End: 01-08-2025 ambulatory BOB MEDINA Not Available Start: 12-14-2024 End: 12-14-2024 Bamboo flowsheet Maira Victor Manuel GREEN MARKETER Work Phone: [facility] Start: 12-14-2024 End: 12-14-2024 Bamboo flowsheet Maira Victor Manuel GREEN MARKETER Work Phone: [facility] Start: 12-14-2024 End: 12-14-2024 Office outpatient visit 25 minutes Maira Rush GREEN MARKETER Work Phone: [facility] Comment on above: Type 2 diabetes gayatri itus without complication, with long-term current use of insulin ([facility]) (Primary Dx); Gill rash of groin; Cigarette nicotine dependence without complication; Urge and stress incontinence; Primary hypertension ; Paroxysmal atrial fibrillation ([facility]); Medical non-compliance Start: 12-14-2024 End: 12-14-2024 Refill Maira Victor Manuel GREEN MARKETER Work Phone: [facility] Comment on above: 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 Start: 12-01-2024 End: 12-01-2024 Bamboo flowsheet Maira Victor Manuel GREEN MARKETER Work Phone: [facility] Start: 12-01-2024 End: 12-01-2024 Bamboo flowsheet Maira Aichholz GREEN MARKETER Work Phone: [facility] Start: 12-01-2024 End: 12-01-2024 ambulatory MAIRA AICHHOLZ Not Available Start: 12-01-2024 End: 12-01-2024 Office outpatient visit 25 minutes Maira Aichholz GREEN MARKETER Work Phone: [facility] Comment on above: Gill infection of genital region (Primary Dx); Type 2 diabetes mellitus without complication, with long-term current use of insulin ([facility]); Gill rash of groin; Abscess of left groin Start: 11-25-2024 End: 11-25-2024 Orders Only Maira Aichholz GREEN MARKETER Work Phone: [facility] Comment on above: Primary hypertension (Primary Dx) Start: 11-17-2024 End: 11-18-2024 Refill Maira Aichholz GREEN MARKETER Work Phone: [facility] Comment on above: COPD mixed type ([facility] ) Start: 10-16-2024 End: 10-16-2024 Orders Only Maira Aichholz GREEN MARKETER Work Phone: [facility] Comment on above: Type 2 diabetes gayatri itus without complication, with long-term current use of insulin (Primary Dx); Obesity (BMI 30-39.9); Abscess of left groin Start: 10-14-2024 End: 10-14-2024 ambulatory MAIRA AICHHOLZ Not Available Start: 10-14-2024 End: 10-14-2024 Office outpatient visit 25 minutes Maira Aichholz GREEN MARKETER Work Phone: [facility] Comment on above: Abscess of left groi n (Primary Dx); Primary hypertension (CMS/[facility]); Type 2 diabetes mellitus without complication, with long-term current use of insulin; Cigarette nicotine dependence without complication; Encounter for screening mammogram for malignant neoplasm of breast; Gill rash of groin; Mild episode of recurrent major depressive disorder (HCC) (CMS/HCC) Start: 10-14-2024 End: 10-14-2024 Bamboo flowsheet Maira Aichholz GREEN MARKETER Work Phone: [facility] Start: 10-14-2024 End: 10-14-2024 Bamboo flowsheet Maira Rush GREEN MARKETER Work Phone: [facility] Start: 10-06-2024 [...] Department Unsolicited Start: 09-21-2024 End: 09-21-2024 Refill Mairatessa Rush GREEN MARKETER Work Phone: [facility] Comment on above: JORDAN (generalized anx iety disorder) (CMS/HCC); Mild episode of recurrent major depressive disorder (HCC) (CMS/HCC) Start: 09-18-2024 End: 09-20-2024 Refill Maira Rush GREEN MARKETER Work Phone: [facility] Comment on above: COPD mixed type (CMS /HCC) Start: 08-25-2024 End: 08-26-2024 Refill Felton Allison MD Work Phone: [facility] Comment on above: Type 2 diabetes gaaytri itus with hyperglycemia, with long-term current use of insulin (CMS/HCC) (Primary Dx) Hypokalemia (Primary Dx); COPD mixed type (CMS/HCC); Osteoporosis, unspecified osteoporosis type, unspecified pathological fracture presence (CMS/HCC) Start: 08-06-2024 End: 08-06-2024 Bamboo flowsheet Maira Rush GREEN MARKETER Work Phone: [facility] Start: 08-06-2024 End: 08-06-2024 Bamboo flowsheet Maira Rush GREEN MARKETER Work Phone: [facility] Start: 08-06-2024 End: 08-06-2024 Office outpatient visit 25 minutes Maira Rush GREEN MARKETER Work Phone: [facility] Comment on above: JORDAN (generalized anx iety disorder) ([facility]/HCC) (Primary Dx); SANTO (obstructive sleep apnea); Type 2 diabetes mellitus with diabetic polyneuropathy, with long-term current use of insulin ([facility]); COPD mixed type ([facility]); Oxygen dependent; Paroxysmal atrial fibrillation ([facility]); Primary hypertension ([facility]); Gastroesophageal reflux disease, unspecified whether esophagitis present; Obesity (BMI 30-39.9); Type 2 diabetes mellitus without complication, with long-term current use of insulin (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); Medical non-compliance; Mild episode of recurrent major depressive disorder (HCC) ([facility]); Cigarette nicotine dependence without complication; Encounter for screening mammogram for malignant neoplasm of breast; Diabetic polyneuropathy associated with type 2 diabetes mellitus ([facility]); Mixed hyperlipidemia ([facility]); Edema of extremities Start: 08-06-2024 End: 08-06-2024 ambulatory MAIRA VICTOR MANUEL Not Available Start: 07-20-2024 End: 07-20-2024 Refill Mairatessa Rush GREEN MARKETER Work Phone: [facility] Comment on above: Type 2 diabetes gayatri itus with diabetic neuropathy, with long- term current use of insulin ([facility]) Start: 07-16-2024 End: 07-16-2024 Refill Mairatessa Rush GREEN MARKETER Work Phone: [facility] Comment on above: Diarrhea, unspecifie d type (Primary Dx) Start: 07-14-2024 End: 07-16-2024 External Result Encounter Maira Rush GREEN MARKETER Work Phone: [facility] External Department Unsolicited Start: 07-14-2024 End: 07-16-2024 External Result Encounter Maira Aichholz GREEN MARKETER Work Phone: [facility] External Department Unsolicited Start: 07-14-2024 End: 07-14-2024 Orders Only Maira Aichholz GREEN MARKETER Work Phone: [facility] Comment on above: Diarrhea, unspecifie d type (Primary Dx) Start: 07-08-2024 End: 07-08-2024 Clinisync Result Encounter Maira Aichholz GREEN MARKETER Work Phone: [facility] External Department Unsolicited Start: 07-08-2024 End: 07-08-2024 Clinisync Result Encounter Maira Aichholz GREEN MARKETER Work Phone: [facility] External Department Unsolicited Start: 07-06-2024 End: 07-06-2024 ambulatory [facility] Start: 07-01-2024 End: 07-01-2024 Refill Maira Aichholz GREEN MARKETER Work Phone: [facility] Comment on above: Type 2 diabetes gayatri itus without complication, with long-term current use of insulin (CMS/HCC) (Primary Dx) Start: 06-11-2024 End: 06-11-2024 Orders Only Maira Aichholz GREEN MARKETER Work Phone: [facility] Comment on above: 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 (CMS/HCC) (Primary Dx) Start: 06-09-2024 End: 06-09-2024 Bamboo flowsheet Maira Aichholz GREEN MARKETER Work Phone: [facility] Start: 06-09-2024 End: 06-09-2024 Bamboo flowsheet Maira Aichholz GREEN MARKETER Work Phone: [facility] Start: 06-09-2024 End: 06-09-2024 Office outpatient visit 25 minutes Maira Aichholz GREEN MARKETER Work Phone: [facility] Comment on above: COVID (Primary Dx); Type 2 diabetes mellitus with diabetic polyneuropathy ([facility]/HCC); Type 2 diabetes mellitus with hyperglycemia ([facility]/HCC); 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 classified elsewhere ([facility]/HCC); 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 ([facility]/HCC); COPD mixed type ([facility]/HCC); Paroxysmal atrial fibrillation ([facility]/HCC); Primary hypertension ([facility]/HCC); Tobacco user Start: 06-09-2024 End: 06-09-2024 ambulatory MAIRATessa RUSH Not Available Start: 05-28-2024 End: 05-28-2024 Refill Maira Rush GREEN MARKETER Work Phone: [facility] Comment on above: COPD mixed type (CMS /HCC) Start: 05-28-2024 End: 05-28-2024 Office outpatient visit 25 minutes Maira Rush GREEN MARKETER Work Phone: [facility] Comment on above: Oxygen dependent (Pr imary Dx); COPD mixed type (CMS/HCC); Obesity (BMI 30-39.9); COPD with acute exacerbation ([facility]/HCC) Start: 05-28-2024 End: 05-28-2024 Orders Only Maira Rush GREEN MARKETER Work Phone: [facility] Comment on above: Lung nodule, multipl e (Primary Dx); COPD mixed type (CMS/HCC) 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 ([facility]/HCC) (Primary Dx) Start: 05-25-2024 End: 05-25-2024 Clinisync Result Encounter Generic External Data Provider [facility] External Department Unsolicited Start: 05-25-2024 End: 05-25-2024 Clinisync Result Encounter Generic External Data Provider [facility] External Department Unsolicited Start: 05-19-2024 End: 05-19-2024 Bamboo flowsheet Maira Rush GREEN MARKETER Work Phone: [facility] Start: 05-19-2024 End: 05-19-2024 Bamboo flowsheet Maira Rush GREEN MARKETER Work Phone: [facility] Start: 05-19-2024 End: 05-19-2024 Office outpatient visit 15 minutes Maira Rush GREEN MARKETER Work Phone: [facility] Comment on above: Right wrist pain (Pr imary Dx); Obesity (BMI 30-39.9) Start: 05-19-2024 End: 05-19-2024 ambulatory MAIRA YOONHOLZ Not Available Start: 05-18-2024 End: 05-18-2024 Orders Only Maira Rush GREEN MARKETER Work Phone: [facility] Comment on above: Lung nodule, multipl e (Primary Dx) Start: 05-06-2024 End: 05-06-2024 Bamboo flowsheet Maira Rush GREEN MARKETER Work Phone: [facility] Start: 05-06-2024 End: 05-06-2024 Bamboo flowsheet Maira Rush GREEN MARKETER Work Phone: [facility] Start: 05-06-2024 End: 05-06-2024 Office outpatient visit 25 minutes Maira Rush GREEN MARKETER Work Phone: [facility] Comment on above: COPD mixed [...] End: 04-22-2024 Patient encounter status Maira Rush GREEN MARKETER Work Phone: [facility] Start: 04-22-2024 End: 04-22-2024 Periodic preventive med est patient 40-64yrs Maira Rush GREEN MARKETER Work Phone: [facility] Comment on above: Encounter for wellne ss examination (Primary Dx); Osteoporosis, unspecified osteoporosis type, unspecified pathological fracture presence ([facility]); Open wound of buttock, unspecified laterality, initial encounter; Type 2 diabetes mellitus without complication, with long-term current use of insulin ([facility]); Obesity (BMI 30-39.9); Tobacco user; Anxiety and depression ([facility]); Type 2 diabetes mellitus with diabetic neuropathy, with long-term current use of insulin ([facility]); COPD mixed type ([facility]); Diabetic polyneuropathy associated with type 2 diabetes mellitus ([facility]); Gastroesophageal reflux disease, unspecified whether esophagitis present; Mixed hyperlipidemia ([facility]); Primary hypertension ([facility]); Edema of extremities; Lung nodule, multiple; Lymphadenopathy, generalized; Vitamin D deficiency; Oxygen dependent; Community acquired pneumonia, unspecified laterality Start: 04-22-2024 End: 04-22-2024 ambulatory MAIRA RUSH Not Available Start: 04-21-2024 End: 04-21-2024 Office outpatient visit 25 minutes Felton Allison MD Work Phone: [facility] Comment on above: Type 2 diabetes gayatri itus with hyperglycemia, with long-term current use of insulin ([facility]) (Primary Dx); Encounter for dietary consultation; Vitamin D deficiency; Primary hypertension ([facility]); Hyperlipemia, mixed ([facility]); Insulin long-term use ([facility]); Class 1 obesity due to excess calories without serious comorbidity with body mass index (BMI) of 33.0 to 33.9 in adult Start: 04-21-2024 End: 04-21-2024 ambulatory FELTON ALLISON Not Available Start: 04-09-2024 End: 04-09-2024 Clinisync Result Encounter Maira Rush GREEN MARKETER Work Phone: [facility] External Department Unsolicited Start: 04-09-2024 End: 04-09-2024 Clinisync Result Encounter Maira Rush GREEN MARKETER Work Phone: [facility] External Department Unsolicited Start: 04-09-2024 End: 04-09-2024 Telephone encounter Maira Rush NP Work Phone: [facility] Start: 03-20-2024 End: 03-20-2024 ambulatory MAIRA Kel DEUTSCHZ [facility] Start: 03-18-2024 End: 03-18-2024 Refill Maira Aichholz GREEN MARKETER Work Phone: [facility] Comment on above: COPD mixed type (CMS /HCC) (Primary Dx); URI, acute COPD mixed type (CMS /HCC); URI, acute Start: 03-16-2024 End: 03-16-2024 Refill Maira Aichholz GREEN MARKETER Work Phone: [facility] Comment on above: Primary hypertension (CMS/HCC) (Primary Dx); Edema of extremities Start: 03-11-2024 End: 03-11-2024 Bamboo flowsheet Maira Aichholz GREEN MARKETER Work Phone: [facility] Start: 03-11-2024 End: 03-11-2024 Bamboo flowsheet Maira Aichholz GREEN MARKETER Work Phone: [facility] Start: 03-11-2024 End: 03-11-2024 Office outpatient visit 25 minutes Maira Aichholz GREEN MARKETER Work Phone: [facility] Comment on above: Viral upper respirat ory tract infection (Primary Dx); Tobacco user; Open wound; Obesity (BMI 30-39.9); Type 2 diabetes mellitus without complication, with long-term current use of insulin (CMS/HCC) Start: 03-11-2024 End: 03-11-2024 ambulatory MAIRA AICHHOLZ Not Available Start: 02-25-2024 End: 02-25-2024 Bamboo flowsheet Maira Aichholz GREEN MARKETER Work Phone: [facility] Start: 02-25-2024 End: 02-25-2024 Bamboo flowsheet Maira Aichholz GREEN MARKETER Work Phone: [facility] Start: 02-25-2024 End: 02-25-2024 Office outpatient visit 25 minutes Maira Aichholz GREEN MARKETER Work Phone: [facility] Comment on above: Open wound of buttoc k, unspecified laterality, initial encounter (Primary Dx); Type 2 diabetes mellitus without complication, with long-term current use of insulin ([facility]); Obesity (BMI 30-39.9); Dizziness and giddiness Start: 02-25-2024 End: 02-25-2024 ambulatory MAIRA AICHHOLZ Not Available Start: 02-24-2024 End: 02-26-2024 Clinisync Result Encounter Generic External Data Provider [facility] External Department Unsolicited Start: 02-24-2024 End: 02-26-2024 Clinisync Result Encounter Generic External Data Provider [facility] External Department Unsolicited Start: 02-17-2024 End: 02-17-2024 Bamboo flowsheet Maira Rush GREEN MARKETER Work Phone: [facility] Start: 02-17-2024 End: 02-17-2024 Bamboo flowsheet Mairatessa Rush GREEN MARKETER Work Phone: [facility] Start: 02-17-2024 End: 02-17-2024 Office outpatient visit 25 minutes Maira Rush GREEN MARKETER Work Phone: [facility] Comment on above: Type 2 diabetes gayatri itus with hyperglycemia (CMS/HCC) (Primary Dx); Primary hypertension (CMS/HCC); Edema of extremities; Type 2 diabetes mellitus without complication, with long-term current use of insulin ([facility]); Vitamin D deficiency; Tobacco user; Dizziness and giddiness; Atrial fibrillation, unspecified type (CMS/HCC); COPD mixed type (CMS/HCC) Start: 02-17-2024 End: 02-17-2024 ambulatory MAIRA AICHHOLZ Not Available Start: 01-23-2024 End: 01-23-2024 ambulatory [facility] Start: 07-18-2023 End: 07-18-2023 Office outpatient visit 25 minutes Mairatessa Rush GREEN MARKETER Work Phone: [facility] Comment on above: Primary hypertension (CMS/HCC) (Primary Dx); Type 2 diabetes mellitus with diabetic neuropathy, with long-term current use of insulin ([facility]); Gastroesophageal reflux disease, unspecified whether esophagitis present; Vitamin D deficiency; Type 2 diabetes mellitus with complication, without long-term current use of insulin ([facility]); Mixed hyperlipidemia ([facility]); Encounter for screening mammogram for malignant neoplasm of breast; SANTO (obstructive sleep apnea); COPD mixed type ([facility]); Anxiety and depression ([facility]); COVID; Open wound; Morbid obesity with body mass index (BMI) of 40.0 to 49.9 ([facility]) Start: 07-18-2023 Bamboo flowsheet Maira Rush GREEN MARKETER Work Phone: [facility] Start: 07-18-2023 Bamboo flowsheet Maira Rush GREEN MARKETER Work Phone: [facility] Start: 10-02-2022 End: 10-03-2022 ambulatory DMITRY RUSH Facility:[facility] Start: 08-09-2022 End: 08-10-2022 ambulatory DMITRY RUSH Facility:[facility] Start: 07-12-2022 ambulatory [facility] Start: 06-21-2022 End: 06-22-[address] CORINE ANGELA Facility:[facility] Start: 06-20-2022 End: 06-21-2022 ambulatory DMITRY RUSH Facility:[facility] Start: 06-07-2022 End: 06-07-2022 ambulatory Robert Hart Facility:[facility] Start: 04-05-2022 End: 04-09-2022 Evaluation and management of inpatient DR TERI BLOCK . Facility:[facility] Start: 11-23-2021 End: 11-23-2021 ambulatory DMITRY RUSH Facility:[facility] Start: 09-30-2018 End: 10-01-2018 Patient encounter procedure DEFAULT PHYSICIAN Facility:[facility] Start: 09-15-2018 End: 09-16-2018 Patient encounter procedure DEFAULT PHYSICIAN Facility:[facility] Procedures Date Procedure Procedure Detail Performing Clinician Start: 12-14-2024 Hemoglobin glycosylated a1c Maira Rush GREEN MARKETER Work Phone: Start: 10-04-2024 AEROBIC CULTURE Generic External Data Provider Start: 07-14-2024 GASTROINTESTINAL PLU S PARASITES (HTRX) Maira Rush GREEN MARKETER Work Phone: Start: 07-08-2024 CT ABDOMEN WO/W CON Keisha Rush GREEN MARKETER Work Phone: Start: 05-25-2024 ALL RENAL FUNCTION PANEL Generic External Data Provider Start: 04-21-2024 Gluc bld gluc mntr d ev cleared fda spec home use Felton Allison MD Work Phone: Start: 04-09-2024 [facility] UA (CLEAN/CATCH) MICROSCOPIC IF INDICATE Maira Rush GREEN MARKETER Work Phone: Start: 02-24-2024 Bacteria identified in Urine by Culture Generic External Data Provider Start: 08-05-2023 Mammography Maira santiago GREEN MARKETER Work Phone: Start: 06-19-2022 Mammography Maira santiago GREEN MARKETER Work Phone: Start: 02-14-2015 Colonoscopy Maira santiago GREEN MARKETER Work Phone: Plan of Treatment Date Care Activity Detail Author Start: 05-25-2025 Urine screening for protein Diabetes: Urine Protein Screening [facility] Start: 03-16-2025 Hemoglobin A1c measurement Diabetes: Hemoglobin A1C [facility] Start: 02-14-2025 Screening for malignant neoplasm of colon [facility] Start: 02-11-2025 End: 02-11-2025 Clinical Support 02/11/2025 11:30 AM EDT Clinical Support [facility] Patient Education [address] [facility] [phone] Bob Medina, BARI Gonzales Patient Education Start: 01-14-2025 End: 01-14-2025 Patient encounter procedure 01/14/2025 11:00 AM EDT Office Visit [facility] [address] [place] [phone] Maira Rush NP [address] [place] [phone] [facility] Start: 12-14-2024 End: 12-14-2025 Comprehensive metabolic 2000 panel - Serum or Plasma Comprehensive metabolic panel Lab Routine Type 2 diabetes mellitus without complication, with long-term current use of insulin (HCC) Expected: 12/14/2024 (Approximate), Expires: 12/14/2025 [facility] Work Phone: Comment on above: Expected: 12/14/2024 (Approximate), Expi res: 12/14/2025 Start: 12-14-2024 End: 12-14-2025 Lipid 1996 panel - Serum or Plasma Lipid panel Lab Routine Type 2 diabetes mellitus without complication, with long-term current use of insulin (HCC) Expected: 12/14/2024 (Approximate), Expires: 12/14/2025 [facility] Comment on above: Expected: 12/14/2024 (Approximate), Expi res: 12/14/2025 Start: 12-14-2024 End: 12-14-2024 Patient encounter procedure [facility] Comment on above: Type 2 diabetes mellitus without complic ation, with long-term current use of insulin (HCC) (Primary Dx); Gill rash of groin; Cigarette nicotine dependence without complication; Urge and stress incontinence Start: 11-26-2024 End: 05-28-2025 CT Chest W contrast IV CT chest w IV contrast Imaging Routine Lung nodule, multiple Expected: 11/26/2024 (Approximate), Expires: 05/28/2025 [facility] Work Phone: Comment on above: Expected: 11/26/2024 (Approximate), Expi res: 05/28/2025 Start: 11-25-2024 End: 11-25-2025 Basic metabolic 1998 panel - Serum or Plasma Basic metabolic panel Lab Routine Primary hypertension Expected: 11/25/2024 (Approximate), Expires: 11/25/2025 [facility] Work Phone: Comment on above: Expected: 11/25/2024 (Approximate), Expi res: 11/25/2025 Start: 11-09-2024 End: 11-09-2024 Patient encounter procedure 11/09/2024 9:40 AM EDT Office Visit [facility] [address] [place] [address] Maira Rush, GREEN MARKETER [address] [place] [phone] [facility] Start: 10-14-2024 End: 10-14-2024 Patient encounter procedure 10/14/2024 2:20 PM EDT Office Visit [facility] [address] [place] [address] Maira Rush, ARLEN [address] [place] [phone] [facility] Start: 10-14-2024 End: 12-14-2025 MG Breast - bilateral Screening Bilateral screening mammogram Imaging Routine Encounter for screening mammogram for malignant neoplasm of breast Expected: 10/14/2024 (Approximate), Expires: 12/14/2025 [facility] Work Phone: Comment on above: Expected: 10/14/2024 (Approximate), Expi res: 12/14/2025 Start: 09-02-2024 End: 09-02-2024 Patient encounter procedure 09/02/2024 11:10 AM EDT Office Visit [facility] [address] [place] [phone] Felton Allison MD [address] [place] [address] [facility] Start: 08-06-2024 End: 10-06-2025 MG Breast - bilateral Screening Bilateral screening mammogram Imaging Routine Encounter for screening mammogram for malignant neoplasm of breast Expected: 08/06/2024 (Approximate), Expires: 10/06/2025 [facility] Work Phone: Comment on above: Expected: 08/06/2024 (Approximate), Expi res: 10/06/2025 Start: 08-06-2024 End: 08-06-2024 Patient encounter procedure [facility] Comment on above: SANTO (obstructive sleep apnea) (Primary D x); Type 2 diabetes mellitus with diabetic polyneuropathy, with long-term current use of insulin ([facility]/HCC); COPD mixed type ([facility]/HCC); Oxygen dependent; Paroxysmal atrial fibrillation ([facility]/HCC); Primary hypertension ([facility]); Gastroesophageal reflux disease, unspecified whether esophagitis present; Obesity (BMI 30-39.9); Type 2 diabetes mellitus without complication, with long-term current use of insulin ([facility]/HCC); Anxiety and depression ([facility]); retirement (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 ([facility]); Medical non-compliance; JORDAN (generalized anxiety disorder) ([facility]); Mild episode of recurrent major depressive disorder (HCC) ([facility]); Cigarette nicotine dependence without complication; Encounter for screening mammogram for malignant neoplasm of breast Start: 08-04-2024 Screening for malignant neoplasm of breast Mammogram [facility] Start: 08-04-2024 Urine screening for protein Diabetes: Urine Protein Screening [facility] Start: 07-23-2024 Hemoglobin A1c measurement Diabetes: Hemoglobin A1C [facility] Start: 07-22-2024 Hemoglobin A1c measurement Diabetes: Hemoglobin A1C [facility] Start: 07-21-2024 End: 07-21-2024 Patient encounter procedure 07/21/2024 2:20 PM EST Office Visit [facility] [address] [place] [address] Felton Allison MD [address] [place] [address] [facility] Start: 07-21-2024 End: 07-21-2024 Patient encounter procedure 07/21/2024 10:40 AM EST Office Visit [facility] [address] [place] [address] Felton Allison MD [address] [place] [address] [facility] Start: 07-14-2024 End: 07-14-2025 GASTROINTESTINAL PLUS PARASITES (HTRX) GASTROINTESTINAL PLUS PARASITES (HTRX) Lab Routine Diarrhea, unspecified type Expected: 07/14/2024 (Approximate), Expires: 07/14/2025 [facility] Work Phone: Comment on above: Expected: 07/14/2024 (Approximate), Expi res: 07/14/2025 Start: 07-09-2024 Hemoglobin A1c measurement Diabetes: Hemoglobin A1C [facility] Start: 06-11-2024 End: 06-11-2025 CT Abdomen WO and W contrast IV CT abdomen w and wo IV contrast Imaging Routine 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 (CMS/HCC) Expected: 06/11/2024, Expires: 06/11/2025 [facility] Work Phone: Comment on above: Expected: 06/11/2024, Expires: Start: 06-09-2024 End: 06-09-2024 Patient encounter procedure 06/09/2024 11:00 AM EST Office Visit [facility] [address] [place] [phone] Maira Rush, ARLEN [address] [place] [address] COPD mixed type (CMS/HCC) (Primary Dx); Type 2 diabetes mellitus with diabetic polyneuropathy (CMS/HCC); Type 2 diabetes mellitus with hyperglycemia (CMS/HCC); 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/HCC); retirement (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 (CMS/HCC); Paroxysmal atrial fibrillation (CMS/HCC); Primary hypertension (CMS/HCC); Tobacco user; COVID [facility] Comment on above: COPD mixed type (CMS/HCC) (Primary Dx); Type 2 diabetes mellitus with diabetic polyneuropathy (CMS/HCC); Type 2 diabetes mellitus with hyperglycemia (CMS/HCC); 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/HCC); 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 (CMS/HCC); Paroxysmal atrial fibrillation (CMS/HCC); Primary hypertension (CMS/HCC); Tobacco user; COVID Start: 05-28-2024 End: 05-28-2025 Creatinine [Mass/volume] in Serum or Plasma Creatinine Lab Routine 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 (CMS/HCC) Expected: 05/28/2024 (Approximate), Expires: 05/28/2025 [facility] Comment on above: Expected: 05/28/2024 (Approximate), Expi res: 05/28/2025 Start: 05-28-2024 End: 05-28-2025 CT Abdomen and Pelvis W contrast IV CT abdomen pelvis w IV contrast Imaging Routine 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 (CMS/HCC) Expected: 05/28/2024 (Approximate), Expires: 05/28/2025 [facility] Work Phone: Comment on above: Expected: 05/28/2024 (Approximate), Expi res: 05/28/2025 Start: 05-19-2024 End: 05-19-2024 Patient encounter procedure [facility] Comment on above: Obesity (BMI 30-39.9) (Primary Dx); COPD mixed type (CMS/HCC) Start: 05-18-2024 End: 05-18-2025 Creatinine [Mass/volume] in Serum or Plasma Creatinine Lab Routine Lung nodule, multiple Expected: 05/18/2024 (Approximate), Expires: 05/18/2025 [facility] Work Phone: Comment on above: Expected: 05/18/2024 (Approximate), Expi res: 05/18/2025 Start: 05-06-2024 End: 05-06-2024 Patient encounter procedure 05/06/2024 1:20 PM EST Office Visit [facility] [address] [place] [phone] Maira Rush NP [address] [place] [phone] SANTO (obstructive sleep apnea) (Primary Dx); Lung nodule, multiple; COPD mixed type (CMS/HCC); Community acquired pneumonia, unspecified laterality; Primary hypertension (CMS/HCC); Atrial fibrillation, unspecified type (CMS/HCC); Type 2 diabetes mellitus without complication, with long-term current use of insulin (CMS/HCC); Tobacco user [facility] Comment on above: SANTO (obstructive sleep apnea) [...] Lymphadenopathy, generalized Expected: 04/22/2024 (Approximate), Expires: 04/22/2025 [facility] Work Phone: Comment on above: Expected: 04/22/2024 (Approximate), Expi res: 04/22/2025 Start: 04-22-2024 End: 04-22-2024 Patient encounter procedure 04/22/2024 9:20 AM EST Office Visit [facility] [address] [place] [address] Maira Rush NP [address] [place] [address] [facility] Start: 04-21-2024 End: 04-21-2024 Patient encounter procedure 04/21/2024 2:40 PM EST Office Visit [facility] [address] [place] [id number] Felton Allison MD [address] [place] [address] [facility] Start: 04-21-2024 End: 04-21-2025 25-hydroxyvitamin D3 [Mass/volume] in Serum or Plasma Vitamin D 25 hydroxy Total Lab Routine Type 2 diabetes mellitus with hyperglycemia, with long-term current use of insulin ([facility]) Expected: 04/21/2024 (Approximate), Expires: 04/21/2025 [facility] Comment on above: Expected: 04/21/2024 (Approximate), Expi res: 04/21/2025 Start: 04-21-2024 End: 04-21-2025 C-peptide C-peptide Lab Routine Type 2 diabetes mellitus with hyperglycemia, with long-term current use of insulin ([facility]) Expected: 04/21/2024 (Approximate), Expires: 04/21/2025 [facility] Work Phone: Comment on above: Expected: 04/21/2024 (Approximate), Expi res: 04/21/2025 Start: 04-21-2024 End: 04-21-2024 Chart abstracting 04/21/2024 Abstract [facility] [address] [place] [phone] Felton Allison MD [address] [place] [address] [facility] Start: 04-21-2024 End: 04-21-2025 Lipid 1996 panel - Serum or Plasma Lipid panel Lab Routine Type 2 diabetes mellitus with hyperglycemia, with long-term current use of insulin ([facility]) Expected: 04/21/2024 (Approximate), Expires: 04/21/2025 [facility] Comment on above: Expected: 04/21/2024 (Approximate), Expi res: 04/21/2025 Start: 04-21-2024 End: 04-21-2025 Microalbumin/Creatinine panel in random Urine Microalbumin / creatinine urine ratio Lab Routine Type 2 diabetes mellitus with hyperglycemia, with long-term current use of insulin ([facility]) Expected: 04/21/2024 (Approximate), Expires: 04/21/2025 [facility] Comment on above: Expected: 04/21/2024 (Approximate), Expi res: 04/21/2025 Start: 04-21-2024 End: 04-21-2025 Renal function panel Renal function panel Lab Routine Type 2 diabetes mellitus with hyperglycemia, with long-term current use of insulin ([facility]) Expected: 04/21/2024 (Approximate), Expires: 04/21/2025 [facility] Comment on above: Expected: 04/21/2024 (Approximate), Expi res: 04/21/2025 Start: 03-11-2024 End: 03-11-2024 Patient encounter procedure [facility] Comment on above: Arrived Start: 02-25-2024 End: 02-25-2024 Patient encounter procedure 02/25/2024 11:00 AM EDT Office Visit [facility] [address] [place] [address] Maira Rush NP [address] [place] [address] Arrived [facility] Comment on above: Arrived Start: 02-17-2024 End: 02-16-2025 CBC W Auto Differential panel - Blood CBC and differential Lab Routine Dizziness and giddiness Expected: 02/17/2024 (Approximate), Expires: 02/16/2025 [facility] Comment on above: Expected: 02/17/2024 (Approximate), Expi res: 02/16/2025 Start: 02-17-2024 End: 02-16-2025 Comprehensive metabolic 2000 panel - Serum or Plasma Comprehensive metabolic panel Lab Routine Type 2 diabetes mellitus with hyperglycemia ([facility]) Primary hypertension ([facility]) Edema of extremities Type 2 diabetes mellitus without complication, with long-term current use of insulin ([facility]) Vitamin D deficiency Dizziness and giddiness Expected: 02/17/2024 (Approximate), Expires: 02/16/2025 [facility] Comment on above: Expected: 02/17/2024 (Approximate), Expi res: 02/16/2025 Start: 02-17-2024 End: 02-16-2025 Hemoglobin A1c/Hemoglobin.total in Blood Hemoglobin A1c Lab Routine Type 2 diabetes mellitus with hyperglycemia ([facility]) Expected: 02/17/2024 (Approximate), Expires: 02/16/2025 [facility] Comment on above: Expected: 02/17/2024 (Approximate), Expi res: 02/16/2025 Start: 02-17-2024 End: 02-16-2025 Magnesium [Mass/volume] in Serum or Plasma Magnesium Lab Routine Dizziness and giddiness Expected: 02/17/2024 (Approximate), Expires: 02/16/2025 [facility] Work Phone: Comment on above: Expected: 02/17/2024 (Approximate), Expi res: 02/16/2025 Start: 02-17-2024 End: 02-16-2025 Urinalysis complete panel - Urine Urinalysis with reflex microscopic (clean catch) Lab Routine Type 2 diabetes mellitus with hyperglycemia (CMS/HCC) Primary hypertension (CMS/HCC) Tobacco user Dizziness and giddiness Expected: 02/17/2024 (Approximate), Expires: 02/16/2025 [facility] Comment on above: Expected: 02/17/2024 (Approximate), Expi res: 02/16/2025 Start: 11-05-2023 Hemoglobin A1c measurement Diabetes: Hemoglobin A1C [facility] Start: 10-16-2023 End: 10-16-2023 Patient encounter procedure 10/16/2023 9:20 AM EDT Office Visit [facility] [address] [place] [address] Maira Rush NP [address] [place] [address] [facility] Start: 08-16-2023 End: 09-15-2024 MG Breast - bilateral Screening Bilateral screening mammogram Imaging Routine Encounter for screening mammogram for malignant neoplasm of breast Expected: 08/16/2023 (Approximate), Expires: 09/15/2024 [facility] Comment on above: Expected: 08/16/2023 (Approximate), Expi res: 09/15/2024 Start: 08-10-2023 Urine screening for protein Diabetes: Urine Protein Screening [facility] Start: 07-18-2023 End: 07-18-2023 Patient encounter procedure 07/18/2023 2:20 PM EST Office Visit [facility] [address] [place] [address] Maira Rush NP [address] [place] [address] Type 2 diabetes mellitus with diabetic neuropathy, with long-term current use of insulin (CMS/HCC) (Primary Dx); Primary hypertension (CMS/HCC); Gastroesophageal reflux disease, unspecified whether esophagitis present; Vitamin D deficiency; Type 2 diabetes mellitus with complication, without long-term current use of insulin (CMS/HCC); Mixed hyperlipidemia (CMS/HCC); Encounter for screening mammogram for malignant neoplasm of breast [facility] Comment on above: Type 2 diabetes mellitus [...] D deficiency Expected: 07/18/2023 (Approximate), Expires: 07/18/2024 [facility] Comment on above: Expected: 07/18/2023 (Approximate), Expi res: 07/18/2024 Start: 07-18-2023 End: 07-18-2024 CBC W Auto Differential panel - Blood CBC and differential Lab Routine Gastroesophageal reflux disease, unspecified whether esophagitis present Expected: 07/18/2023 (Approximate), Expires: 07/18/2024 [facility] Work Phone: Comment on above: Expected: 07/18/2023 (Approximate), Expi res: 07/18/2024 Start: 07-18-2023 End: 07-18-2024 Comprehensive metabolic 2000 panel - Serum or Plasma Comprehensive metabolic panel Lab Routine Primary hypertension (CMS/HCC) Type 2 diabetes mellitus with complication, without long-term current use of insulin (CMS/HCC) Mixed hyperlipidemia (CMS/HCC) Expected: 07/18/2023 (Approximate), Expires: 07/18/2024 [facility] Comment on above: Expected: 07/18/2023 (Approximate), Expi res: 07/18/2024 Start: 07-18-2023 End: 07-18-2024 Hemoglobin A1c/Hemoglobin.total in Blood Hemoglobin A1c Lab Routine Type 2 diabetes mellitus with complication, without long-term current use of insulin (CMS/HCC) Expected: 07/18/2023 (Approximate), Expires: 07/18/2024 [facility] Comment on above: Expected: 07/18/2023 (Approximate), Expi res: 07/18/2024 Start: 07-18-2023 End: 07-18-2024 Lipid 1996 panel - Serum or Plasma Lipid panel Lab Routine Mixed hyperlipidemia ([facility]) Expected: 07/18/2023 (Approximate), Expires: 07/18/2024 [facility] Comment on above: Expected: 07/18/2023 (Approximate), Expi res: 07/18/2024 Start: 07-18-2023 End: 07-18-2024 Microalbumin/Creatinine panel in random Urine Microalbumin / creatinine, urine ratio Lab Routine Type 2 diabetes mellitus with complication, without long-term current use of insulin (CMS/HCC) Expected: 07/18/2023 (Approximate), Expires: 07/18/2024 [facility] Comment on above: Expected: 07/18/2023 (Approximate), Expi res: 07/18/2024 Start: 07-18-2023 End: 07-18-2024 Urinalysis complete panel - Urine Urinalysis with reflex microscopic (clean catch) Lab Routine Type 2 diabetes mellitus with complication, without long-term current use of insulin ([facility]) Expected: 07/18/2023 (Approximate), Expires: 07/18/2024 [facility] Comment on above: Expected: 07/18/2023 (Approximate), Expi res: 07/18/2024 Start: 06-19-2023 Screening for malignant neoplasm of breast Mammogram [facility] Start: 04-05-2023 Pneumococcal Vaccine: 65+ Years (2 of 2 - PCV) Pneumococcal Vaccine: 65+ Years (2 of 2 - PCV) [facility] Start: 02-01-2023 Influenza vaccination Influenza Vaccine (#1) [facility] Start: 01-07-2019 Hemoglobin A1c measurement Diabetes: Hemoglobin A1C [facility] Start: 1989 Screening for malignant neoplasm of cervix [facility] Start: 1980 Screening for malignant neoplasm of cervix Pap Smear [facility] Start: 1969 Glaucoma screening Diabetes: Retinopathy Screening [facility] Start: 1959 Screening for malignant neoplasm of colon [facility] AEROBIC CULTURE AEROBIC CULTURE Lab Routine 10/04/2024 2:22 AM EDT [facility] Immunizations Immunization Date Immunization Notes Care Provider Fa cility 05-06-2024 influenza, high dose seasonal, preservative-free Maira Aichholz [employer] Work Phone: [facility] 06-25-2023 Influenza, injectabl e, Madin Arline Canine Kidney, preservative free, quadrivalent Maira Aichholz [employer] Work Phone: [facility] 04-05-2022 influenza, injectabl e, quadrivalent, preservative free Maira Aichholz [employer] Work Phone: [facility] 04-05-2022 pneumococcal polysaccharide vaccine, 23 valent Maira Aichholz [employer] Work Phone: [facility] 04-05-2022 influenza virus vacc ine, unspecified formulation Maira Aichholz [employer] Work Phone: [facility] 11-23-2021 diphtheria, tetanus toxoids and pertussis vaccine Maira Aichholz [employer] Work Phone: [facility] 11-23-2021 tetanus toxoid, redu joaquin diphtheria toxoid, and acellular pertussis vaccine, adsorbed Maira Aichholz [employer] Work Phone: [facility] 2021 Influenza, injectabl e, Madin Arline Canine Kidney, preservative free, quadrivalent Maira Aichholz [employer] MARK[employer] Work Phone: [facility] 03-24-2020 tetanus toxoid, redu joaquin diphtheria toxoid, and acellular pertussis vaccine, adsorbed Maira Rush [employer] MARK[employer] Work Phone: [facility] 03-25-2017 Influenza, injectabl e, Madin Palisade Canine Kidney, preservative free, quadrivalent Maira Rush [employer] Work Phone: [facility] Payers Date Payer Category Payer Medicaid [employer] [employer] [id number] 2017-Present [address] [place] [address] [id number] 2017 Medicaid (Managed Care) [facility] MEDICAID [id number] 1959 Unknown [id number] 2.0.1.044003.3.579.2. 647 1959 Unknown [id number] 07.19.830.1.792730.3.579.2. 647 1959 Unknown [id number] 2.840.1.089282.3.579.2. 593 1959 Unknown [id number] 2.16840.1.628665.3.579.2. 593 1959 Unknown [id number] 2.16840.1.503740.3.579.2. 593 1959 Unknown [id number] 2.840.1.989059.3.579.2. 593 1959 Unknown [id number] 2.16.840.1.553119.3.579.2. 593 1959 Unknown [id number] 2.16.840.1.178577.3.579.2. 593 1959 Unknown [id number] 2.16.840.1.970987.3.579.2. 593 1959 Unknown [id number] 2.16.840.1.938903.3.579.2. 1286 1959 Unknown [id number] 2.16.840.1.867023.3.579.2. 1286 1959 Unknown [id number] 2.16.840.1.413464.3.579.2. 125 1959 Unknown [id number] 2.16.840.1.847577.3.579.2. 9 1959 Unknown [id number] 2.16.840.1.005664.3.579.2. 125 1959 Unknown [id number] 2.16.840.1.338489.3.579.2. 125 1959 Unknown [id number] 2.16.840.1.031845.3.579.2. 1258 1959 Unknown [id number] 2.16.840.1.461144.3.579.2. 1259 1959 Unknown [id number] 2.16.840.1.060506.3.579.2. 125 1959 Unknown [id number] 2.16.840.1.747067.3.579.2. 1259 1959 Unknown [id number] 2.16.840.1.800909.3.579.2. 1258 1959 Unknown [id number] 2.16.840.1.100154.3.579.2. 1259 1959 Unknown [id number] 2.16.840.1.542945.3.579.2. 1258 1959 Unknown [id number] 2.16.840.1.183379.3.579.2. 1259 1959 Unknown [id number] 2.16.840.1.277794.3.579.2. 1259 1959 Unknown [id number] 2.16.840.1.823679.3.579.2. 1259 1959 Unknown [id number] 2.16.840.1.991201.3.579.2. 1286 1959 Unknown [id number] 2.16.840.1.131008.3.579.2. 1286 1959 Unknown [id number] Unknown Social History Date Type Detail Facility Start: 07-15-2023 Tobacco smoking stat [facility] Ex-smoker [facility] Start: 06-03-1982 End: 04-03-2022 History of tobacco use Current smoker [facility] Start: 06-03-1982 End: 04-03-2022 History of tobacco use Cigarette Smoker [facility] Start: 07-15-2023 End: 12-14-2024 Cigarettes smoked current (pack per day) - Reported 0.5 [facility] Start: 07-18-2023 End: 12-14-2024 Alcohol intake Ex-drinker (finding) [facility] Start: 06-29-2023 End: 12-14-2024 Tobacco use panel [facility] Start: 07-15-2023 Alcohol Comment coffee 1-2 cup s per day [facility] Start: 1960 Sex Assigned At Not [...] the mortgage or rent on time? Yes [facility] Medical Equipment Procedure Code Equipment Code Equipment Origin al Text Equipment Identifier Dates [id number] Start: 06-24-2023 End: 08-26-2024 USE TO TEST BLOO D SUGAR FOUR TIMES A DAY [id number] Start: 08-26-2024 USE FOUR TIMES A DAY [id number] Star t: 12-17-2024 USE DIRECTED PER PACKAGE INSTRUCTIONS *NEW RX REQUEST* [id number] Start: 12-15-2024 USE FOUR TIMES A DAY *NEW RX REQUEST* [id number] Start: 12-15-2024 Functional Status Date Assessment Result Facility 12-14-2024 Total score [AUDIT-C] 0 12/15/19 25 1:49 PM EDT Chandrika Danielson MA [facility] Clinical Notes 06-07-2022 to 12-14-2024 Maira Rush NP - 12/14/2024 12:51 PM Andrea Rush NP - 12/14/2024 12:48 PM Andrea Rush NP - 12/14/2024 12:48 PM EDPRESTON CONTI - 12/14/2024 11:30 AM EDTPatient Instructions Note [...] , stated she loaned her nephrew in [place] 400.00 over a 3 month period and did not pay her rent. She is not sure where she will be going, has another nephew in [place], would take her but car wont make it down here to get her and her van wont make it up there. Her is in a snf [place] well [place]. She states she would just come to [...] MCG (2000 UT) tablet Daily Continuous Glucose Clothing Busheler (FreeStyle Julisa 2 [place]) device 1 kit, Does not apply, Every 14 days Continuous Glucose Clothing Busheler (FreeStyle Julisa 2 [place]) device USE DIRECTED Continuous Glucose Sensor (FreeStyle Julisa 2 Sensor) [facility] [place] TO MONITOR BLOOD SUGAR DIRECTED. CHANGE [...] day (morning and mid-day) Sure Comfort Pen [place] 32G X 4 MM misc 1 each, [...] Acute pancreatitis without necrosis or infection, unspecified ([facility]) Anxiety and depression 07/18/2023 Atrial fibrillation (HCC) 07/18/2023 Body mass index (BMI) 40.0-44.9, adult ([facility]) COPD mixed type ([facility]) 05/23/2023 Dietary counseling and surveillance Drug-induced acute pancreatitis ([facility]) 07/18/2023 Edema of extremities 07/18/2023 Essential (primary) hypertension 12/04/2010 GERD (gastroesophageal reflux disease) 07/18/2023 HLD (hyperlipidemia) 07/18/2023 Hx of being hospitalized PNEUMONIA retirement (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 ([facility]) Medical non-compliance 07/18/2023 Morbid obesity with body mass index (BMI) of 40.0 to 49.9 ([facility]) 07/18/2023 Neuropathy, diabetic ([facility]) 07/18/2023 SANTO (obstructive sleep apnea) 07/18/2023 Osteoporosis 07/18/2023 Seasonal allergies 07/18/2023 Tobacco user 07/18/2023 Type 2 diabetes mellitus with complication, without long-term current use of insulin ([facility]) 07/18/2023 Urge and stress incontinence 07/18/2023 Vitamin [...] complication, with long-term current use of insulin ([facility]) - Primary Check blood sugars daily, notify [...] of the risks of continued smoking: stroke, [place], all forms of cancer, lung disease, and [...] of the risks of continued smoking: stroke, [place], all forms of cancer, lung disease, and [...] going to matter documented in this encounter [facility] 12-14-2024 Instructions Maira Rush NP - 12/14/2024 11:30 AM EDT Chronic care mgmt documented in this encounter [facility] 12-01-2024 History of Presen t illness Narrative [...] MCG (2000 UT) tablet Daily Continuous Glucose Clothing Busheler (FreeStyle Julisa 2 [place]) device 1 kit, Does not apply, Every 14 days Continuous Glucose Clothing Busheler (FreeStyle Julisa 2 [place]) device USE DIRECTED Continuous Glucose Sensor (FreeStyle [...] day (morning and mid-day) Sure Comfort Pen [place] 32G X 4 MM misc 1 each, [...] Acute pancreatitis without necrosis or infection, unspecified ([facility]) Anxiety and depression 07/18/2023 Atrial fibrillation ([facility]) 07/18/2023 Body mass index (BMI) 40.0-44.9, adult ([facility]) COPD mixed type ([facility]) 05/23/2023 Dietary counseling and surveillance Drug-induced acute pancreatitis ([facility]) 07/18/2023 Edema of extremities 07/18/2023 Essential (primary) hypertension 12/04/2010 GERD (gastroesophageal reflux disease) 07/18/2023 HLD (hyperlipidemia) 07/18/2023 Hx of being hospitalized PNEUMONIA retirement (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 ([facility]) Medical non-compliance 07/18/2023 Morbid obesity with body mass index (BMI) of 40.0 to 49.9 ([facility]) 07/18/2023 Neuropathy, diabetic ([facility]) 07/18/2023 SANTO (obstructive sleep apnea) 07/18/2023 Osteoporosis 07/18/2023 Seasonal allergies 07/18/2023 Tobacco user 07/18/2023 Type 2 diabetes mellitus with complication, without long-term current use of insulin ([facility]) 07/18/2023 Urge and stress incontinence 07/18/2023 Vitamin [...] 150 MG tablet documented in this encounter [facility] 12-01-2024 Instructions Maira Rush NP - 12/01/2024 1:40 PM EDT Nystatin ointment twice a day to affected area documented in this encounter [facility] 10-14-2024 History of Presen t illness Narrative Associated Problem(s): Mild episode of recurrent major depressive disorder (HCC) (CMS/HCC) Stressors: spouse in snf , also not a strong support system Current med: paxil Will add medication: will trail wellbutrin Associated Problem(s): Abscess of left groin Finish atb According to [facility] discharge notes, she was to have HH [...] one helping with wound care-packing She thought [id number] was suppose to but she had called [...] admit to depression secondary to her in snf with declining health. We have adjusted her [...] D-3) 50 MCG (1999 UT) tablet Daily clindamycin (CLEOCIN) 300 mg, Oral, 4 times daily Continuous Glucose Clothing Busheler (FreeStyle Julisa 2 [place]) device 1 kit, Does not apply, Every 14 days Continuous Glucose Clothing Busheler (FreeStyle Julisa 2 [place]) device USE DIRECTED Continuous Glucose Sensor (FreeStyle [...] day (morning and mid-day) Sure Comfort Pen [place] 32G X 4 MM misc 1 each, [...] necrosis or infection, unspecified Anxiety and depression ([facility]) 07/18/2023 Atrial fibrillation ([facility]) 07/18/2023 Body mass index (BMI) 40.0-44.9, adult ([facility]) COPD mixed type ([facility]) 05/23/2023 Dietary counseling and surveillance Drug-induced acute pancreatitis 07/18/2023 Edema of extremities 07/18/2023 Essential (primary) hypertension ([facility]) 12/04/2010 GERD (gastroesophageal reflux disease) 07/18/2023 HLD (hyperlipidemia) ([facility]) 07/18/2023 Hx of being hospitalized PNEUMONIA retirement (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 ([facility]) Medical non-compliance 07/18/2023 Morbid obesity with body mass index (BMI) of 40.0 to 49.9 ([facility]) 07/18/2023 Neuropathy, diabetic ([facility]) 07/18/2023 SANTO (obstructive sleep apnea) 07/18/2023 Osteoporosis ([facility]) 07/18/2023 Seasonal allergies 07/18/2023 Tobacco user 07/18/2023 Type 2 diabetes mellitus with complication, without long-term current use of insulin ([facility]) 07/18/2023 Urge and stress incontinence 07/18/2023 Vitamin [...] of the risks of continued smoking: stroke, [place], all forms of cancer, lung disease, and . Options for quitting smoking include: cold turkey, hypnosis, acupuncture, nicotine replacement meds (gum, lozenges, and patches), Buproprion, and Varenicline. At this time pt is encouraged to evaluate their goals for wanting to quit smoking, and reach out to provider when ready to start this process Abscess of left groin Finish atb According to [facility] discharge notes, she was to have HH [...] of the risks of continued smoking: stroke, [place], all forms of cancer, lung disease, and [...] dania and arb documented in this encounter [facility] 08-06-2024 History of Presen t illness Narrative September- dr kalina Bender-pulmonology (walk test) Pt needs to get an ultrasound on her heart yet face boss. Images from the original note were not [...] MCG (2000 UT) tablet Daily Continuous Glucose Clothing Busheler (FreeStyle Julisa 2 [place]) device 1 kit, Does not apply, Every 14 days Continuous Glucose Clothing Busheler (FreeStyle Julisa 2 [place]) device USE DIRECTED Continuous Glucose Sensor (FreeStyle [...] day (morning and mid-day) Sure Comfort Pen [place] 32G X 4 MM misc 1 each, [...] necrosis or infection, unspecified Anxiety and depression ([facility]) 07/18/2023 Atrial fibrillation ([facility]) 07/18/2023 Body mass index (BMI) 40.0-44.9, adult ([facility]) COPD mixed type ([facility]) 05/23/2023 Dietary counseling and surveillance Drug-induced acute pancreatitis 07/18/2023 Edema of extremities 07/18/2023 Essential (primary) hypertension ([facility]) 12/04/2010 GERD (gastroesophageal reflux disease) 07/18/2023 HLD (hyperlipidemia) (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 ([facility]) Medical non-compliance 07/18/2023 Morbid obesity with body mass index (BMI) of 40.0 to 49.9 ([facility]) 07/18/2023 Neuropathy, diabetic ([facility]) 07/18/2023 SANTO (obstructive sleep apnea) 07/18/2023 Osteoporosis ([facility]) 07/18/2023 Seasonal allergies 07/18/2023 Tobacco user 07/18/2023 Type 2 diabetes mellitus with complication, without long-term current use of insulin ([facility]) 07/18/2023 Urge and stress incontinence 07/18/2023 Vitamin [...] Items Addressed This Visit COPD mixed type (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) Please check blood pressure daily and record DASH diet Limit caffeine Take medication as directed Contact office if chest pain, pressure, dizziness, shortness of breath, swelling legs Recommend slow position changes Current meds: b dania and arb Relevant Medications losartan (Cozaar) 100 MG tablet spironolactone (Aldactone) 25 MG tablet JORDAN (generalized anxiety disorder) ([facility]) - Primary Current med: paxil Stressors: spouse in snf, pt does not have a large support [...] that it is the responsibility of the contract serviceman of the [employer], no this healthcare provider. The patient verbalizes understanding of this . Has a cat Relevant Medications PARoxetine (Paxil) 30 MG tablet SANTO (obstructive sleep apnea) Non compliance , has been instructed in the past on importance of need to wear PAP Not wearing risk stroke, [place], Atrial fibrillation ([facility]) No current afib Current meds: xarelto, b [...] not wear PAP as directed HLD (hyperlipidemia) ([facility]) Relevant Medications rosuvastatin (Crestor) 5 MG tablet RESOLVED: Anxiety and depression ([facility]) Encounter for screening mammogram for malignant neoplasm [...] complication, with long-term current use of insulin ([facility]) Check blood sugars daily, notify if <70 [...] Type 2 diabetes mellitus with diabetic polyneuropathy ([facility]) Takes gabapentin OARRS reviewed Recommend freq foot checks for wounds, recommend proper fitting footwear as well as adequate diabetic control 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) Mild episode of recurrent major depressive disorder (HCC) ([facility]) Stressors: spouse in snf , also not a strong support system [...] that it is the responsibility of the contract serviceman of the [employer], no this healthcare provider. The patient verbalizes understanding of this . Has a cat Relevant Medications PARoxetine (Paxil) 30 MG tablet Cigarette nicotine dependence without complication The patient has been advised of the risks of continued smoking: stroke, GA, all forms of cancer, lung disease, and [...] polyneuropathy associated with type 2 diabetes mellitus ([facility]) Relevant Medications gabapentin (Neurontin) 600 MG tablet Associated Problem(s): Cigarette nicotine dependence without complication The patient has been advised of the risks of continued smoking: stroke, GA, all forms of cancer, lung disease, and . Options for quitting smoking include: cold turkey, hypnosis, acupuncture, nicotine replacement meds (gum, lozenges, and patches), Buproprion, and Varenicline. At this time pt is encouraged to evaluate their goals for wanting to quit smoking, and reach out to provider when ready to start this process Associated Problem(s): Mild episode of recurrent major depressive disorder (HCC) ([facility]) Stressors: spouse in snf , also not a strong support system [...] that it is the responsibility of the contract serviceman of the [employer], no this healthcare provider. The patient verbalizes understanding of this . Has a cat Associated Problem(s): JORDAN (generalized anxiety disorder) ([facility]) Current med: paxil Stressors: spouse in snf, pt does not have a large support [...] that it is the responsibility of the contract serviceman of the [employer], no this healthcare provider. The patient verbalizes understanding of this . Has a cat Associated Problem(s): Medical non-compliance Has not had fu with pulmonology Does not wear PAP as directed Associated Problem(s): Type 2 diabetes mellitus without complication, with long-term current use of insulin ([facility]) Check blood sugars daily, notify if <70 or >200. Take medications (pills or insulin) as directed. Monitor for s/s of hypoglycemia (sweaty, dizziness, nausea, vomiting, or shakiness). Watch for increase in thirst, urination, or appetite. Inspect feet frequently monitoring for open wounds , and also recommend yearly eye exam. Is under care of Endo, next appt is 4/25 Is on statin , arb Most recent [...] Recommend quitting smoking Continue inhalers Fu with chainstitch pants outseamer: has a walk test coming up Recommend follow up Associated Problem(s): Type 2 diabetes mellitus with diabetic polyneuropathy ([facility]) Takes gabapentin OARRS reviewed Recommend freq foot checks for wounds, recommend proper fitting footwear as well as adequate diabetic control Associated Problem(s): SANTO (obstructive sleep apnea) Non compliance , has been instructed in the past on importance of need to wear PAP Not wearing risk stroke, [place], documented in this encounter [facility] 08-06-2024 History of Presen t illness Narrative September- dr kalina Bender-pulmonology (walk test) Pt needs to get an ultrasound on her heart yet face boss. Images from the original note were not [...] (Vitamin D-3) 50 MCG (1999) tablet Daily Continuous Glucose Clothing Busheler (FreeStyle Julisa 2 [place]) device 1 kit, Does not apply, Every 14 days Continuous Glucose Clothing Busheler (FreeStyle Julisa 2 [place]) device USE DIRECTED Continuous Glucose Sensor (FreeStyle [...] day (morning and mid-day) Sure Comfort Pen [place] 32G X 4 MM misc 1 each, [...] necrosis or infection, unspecified Anxiety and depression ([facility]) 07/18/2023 Atrial fibrillation ([facility]) 07/18/2023 Body mass index (BMI) 40.0-44.9, adult ([facility]) COPD mixed type ([facility]) 05/23/2023 Dietary counseling and surveillance Drug-induced acute pancreatitis 07/18/2023 Edema of extremities 07/18/2023 Essential (primary) hypertension ([facility]) 12/04/2010 GERD (gastroesophageal reflux disease) 07/18/2023 HLD (hyperlipidemia) ([facility]) 07/18/2023 Hx of being hospitalized PNEUMONIA retirement (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 ([facility]) Medical non-compliance 07/18/2023 Morbid obesity with body mass index (BMI) of 40.0 to 49.9 ([facility]) 07/18/2023 Neuropathy, diabetic ([facility]) 07/18/2023 SANTO (obstructive sleep apnea) 07/18/2023 Osteoporosis ([facility]) 07/18/2023 Seasonal allergies 07/18/2023 Tobacco user 07/18/2023 Type 2 diabetes mellitus with complication, without long-term current use of insulin ([facility]) 07/18/2023 Urge and stress incontinence 07/18/2023 Vitamin [...] Items Addressed This Visit COPD mixed type (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) Please check blood pressure daily and record DASH diet Limit caffeine Take medication as directed Contact office if chest pain, pressure, dizziness, shortness of breath, swelling legs Recommend slow position changes Current meds: b dania and arb Relevant Medications losartan (Cozaar) 100 MG tablet spironolactone (Aldactone) 25 MG tablet JORDAN (generalized anxiety disorder) ([facility]) - Primary Current med: paxil Stressors: spouse in snf, pt does not have a large support [...] that it is the responsibility of the contract serviceman of the [employer], no this healthcare provider. The patient verbalizes understanding of this . Has a cat Relevant Medications PARoxetine (Paxil) 30 MG tablet SANTO (obstructive sleep apnea) Non compliance , has been instructed in the past on importance of need to wear PAP Not wearing risk stroke, [place], Atrial fibrillation ([facility]) No current afib Current meds: xarelto, b [...] not wear PAP as directed HLD (hyperlipidemia) ([facility]) Relevant Medications rosuvastatin (Crestor) 5 MG tablet RESOLVED: Anxiety and depression ([facility]) Encounter for screening mammogram for malignant neoplasm [...] complication, with long-term current use of insulin ([facility]) Check blood sugars daily, notify if <70 [...] Type 2 diabetes mellitus with diabetic polyneuropathy ([facility]) Takes gabapentin OARRS reviewed Recommend freq foot checks for wounds, recommend proper fitting footwear as well as adequate diabetic control 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) Mild episode of recurrent major depressive disorder (HCC) ([facility]) Stressors: spouse in snf , also not a strong support system [...] that it is the responsibility of the contract serviceman of the [employer], no this healthcare provider. The patient verbalizes understanding of this . Has a cat Relevant Medications PARoxetine (Paxil) 30 MG tablet Cigarette nicotine dependence without complication The patient has been advised of the risks of continued smoking: stroke, GA, all forms of cancer, lung disease, and [...] polyneuropathy associated with type 2 diabetes mellitus ([facility]) Relevant Medications gabapentin (Neurontin) 600 MG tablet Associated Problem(s): Cigarette nicotine dependence without complication The patient has been advised of the risks of continued smoking: stroke, GA, all forms of cancer, lung disease, and . Options for quitting smoking include: cold turkey, hypnosis, acupuncture, nicotine replacement meds (gum, lozenges, and patches), Buproprion, and Varenicline. At this time pt is encouraged to evaluate their goals for wanting to quit smoking, and reach out to provider when ready to start this process Associated Problem(s): Mild episode of recurrent major depressive disorder (HCC) ([facility]) Stressors: spouse in snf , also not a strong support system [...] that it is the responsibility of the contract serviceman of the [employer], no this healthcare provider. The patient verbalizes understanding of this . Has a cat Associated Problem(s): JORDAN (generalized anxiety disorder) ([facility]) Current med: paxil Stressors: spouse in snf, pt does not have a large support [...] that it is the responsibility of the contract serviceman of the [employer], no this healthcare provider. The patient verbalizes understanding of this . Has a cat Associated Problem(s): Medical non-compliance Has not had fu with pulmonology Does not wear PAP as directed Associated Problem(s): Type 2 diabetes mellitus without complication, with long-term current use of insulin ([facility]) Check blood sugars daily, notify if <70 [...] Recommend quitting smoking Continue inhalers Fu with chainstitch pants outseamer: has a walk test coming up Recommend [...] to wear PAP Not wearing risk stroke, [place], documented in this encounter [facility] 08-06-2024 Instructions Maira Rush NP - 08/06/2024 9:20 AM EST Increase the paroxetine to 30mg daily, If worsening in depression or anxiety with the medication adjustment call the office Also will send order to [facility] for mammogram I will check w cardiology about aspirin documented in this encounter [facility] 07-06-2024 Note Cardiology Clinic No te Subjective [...] mass index (BMI) of 40.0 to 49.9 ([facility]) Neuropathy, diabetic (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 CAP (community acquired pneumonia) COVID Dizziness and giddiness Hyperglycemia 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 classified elsewhere Injury of back of head retirement (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 ([facility]) Lung nodule, multiple Lymphadenopathy, generalized Muscle weakness (generalized) Other abnormalities of gait and mobility Other thrombophilia Oxygen dependent Right wrist pain Stage III pressure ulcer of sacral region ([facility]) Type 2 diabetes mellitus with diabetic polyneuropathy ([facility]) Type 2 diabetes mellitus with hyperglycemia ([facility]) Weakness Family History Problem Relation Name Age [...] Rfl: rivaroxaban ( (more content not included)... [facility] 06-09-[facility]24 History of Presen t illness Narrative Denae Dior is a 63 y.o. female presents with chief complaint of COPD HPI: Here for an ER fu. Was last seen in office on 05/28/24 with URI symptoms, d/t assessment and chronic conditions she was sent to [facility] ER, she was ultimately dx with COVID, as well as sent home on steroids (40mg daily for 5 days) and doxycycline for COPD exacerbation. She returned to the [facility] ER on 06/01/24 with complaints of blood [...] MCG (1999 [place]) tablet Daily Continuous Glucose Clothing Busheler (FreeStyle Julisa 2 [place]) device 1 kit, Does not apply, Every 14 days Continuous Glucose Clothing Busheler (FreeStyle Julisa 2 [place]) device USE DIRECTED Continuous Glucose Sensor (FreeStyle [...] day (morning and mid-day) Sure Comfort Pen [place] 32G X 4 MM misc 1 each, [...] necrosis or infection, unspecified Anxiety and depression ([facility]) 07/18/2023 Atrial fibrillation ([facility]) 07/18/2023 Body mass index (BMI) 40.0-44.9, adult ([facility]) COPD mixed type ([facility]) 05/23/2023 Dietary counseling and surveillance Drug-induced acute pancreatitis 07/18/2023 Edema of extremities 07/18/2023 Essential (primary) hypertension ([facility]) 12/04/2010 GERD (gastroesophageal reflux disease) 07/18/2023 HLD (hyperlipidemia) ([facility]) 07/18/2023 Hx of being hospitalized PNEUMONIA retirement (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 ([facility]) Medical non-compliance 07/18/2023 Morbid obesity with body mass index (BMI) of 40.0 to 49.9 ([facility]) 07/18/2023 Neuropathy, diabetic ([facility]) 07/18/2023 SANTO (obstructive sleep apnea) 07/18/2023 Osteoporosis ([facility]) 07/18/2023 Seasonal allergies 07/18/2023 Tobacco user 07/18/2023 Type 2 diabetes mellitus with complication, without long-term current use of insulin ([facility]) 07/18/2023 Urge and stress incontinence 07/18/2023 Vitamin [...] Items Addressed This Visit COPD mixed type ([facility]) Quit smoking Continue inhalers Fu with pulmonologoist Recent covid dx Primary hypertension ([facility]) Please check blood pressure daily and record DASH diet Limit caffeine Take medication as directed Contact office if chest pain, pressure, dizziness, shortness of breath, swelling legs Recommend slow position changes Current meds: b dania and arb Atrial fibrillation ([facility]) No current afib Current meds: asa, xarelto, b dania Tobacco user The patient has been advised of the risks of continued smoking: stroke, [place], all forms of cancer, lung disease, and [...] COVID - Primary Was dx 05/28/24 w JOSEPHINEFABY, sent home on doxy, steroids for COPD exac Returned to Er on 06/01/24 d/t elevated glucose Recommend good hand washing ted when visiting in nursing facility 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 classified elsewhere ([facility]) Type 2 diabetes mellitus with hyperglycemia ([facility]) Check blood sugars daily, notify if <70 [...] Type 2 diabetes mellitus with diabetic polyneuropathy ([facility]) Long standing DM, recommend freq foot checks for open wounds Good fitting shoes Diabetes control 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) Associated Problem(s): COVID Was dx 05/28/24 w COVID, sent home on doxy, steroids for COPD exac Returned to Er on 06/01/24 d/t elevated glucose Recommend good hand washing ted when visiting in nursing facility Associated Problem(s): Tobacco user The patient has been advised of the risks of continued smoking: stroke, GA, all forms of cancer, lung disease, and [...] Problem(s): Type 2 diabetes mellitus with hyperglycemia ([facility]) Check blood sugars daily, notify if <70 [...] shoes Diabetes control documented in this encounter [facility] 06-09-2024 Instructions Maira Rush NP - 06/09/2024 11:00 AM EST Diabetes: please call and schedule a diabetic eye exam Smokin cigs daily for this week, then next week 2 cigs daily, then week #3: 1 cig daily, then week #4: stop: You can do this, do it for your overall health and health of your lungs documented in this encounter [facility] 05-28-2024 History of Presen t illness Narrative Associated Problem(s): COPD with acute exacerbation ([facility]) Recent hospitalization with pneumonia in the last few months Is on home O2, also with nebs at home, states no difference in her wheezing with or without the neb UTD on flu shot, not on COVID Had CT chest on 05/25/24 but did not have sxs at that time Her is in a snf, possible exposure to something there Differentials: atypical [...] 2 times daily with meals Continuous Glucose Clothing Busheler (FreeStyle Julisa 2 [place]) device 1 kit, Does not apply, Every 14 days Continuous Glucose Clothing Busheler (FreeStyle Julisa 2 [place]) device USE DIRECTED Continuous Glucose Sensor (FreeStyle [...] day (morning and mid-day) Sure Comfort Pen [place] 32G X 4 MM misc 1 each, [...] necrosis or infection, unspecified Anxiety and depression ([facility]) 07/18/2023 Atrial fibrillation ([facility]) 07/18/2023 Body mass index (BMI) 40.0-44.9, adult ([facility]) COPD mixed type ([facility]) 05/23/2023 Dietary counseling and surveillance Drug-induced acute pancreatitis 07/18/2023 Edema of extremities 07/18/2023 Essential (primary) hypertension ([facility]) 12/04/2010 GERD (gastroesophageal reflux disease) 07/18/2023 HLD (hyperlipidemia) ([facility]) 07/18/2023 Hx of being hospitalized 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 ([facility]) Medical non-compliance 07/18/2023 Morbid obesity with body mass index (BMI) of 40.0 to 49.9 ([facility]) 07/18/2023 Neuropathy, diabetic ([facility]) 07/18/2023 SANTO (obstructive sleep apnea) 07/18/2023 Osteoporosis ([facility]) 07/18/2023 Seasonal allergies 07/18/2023 Tobacco user 07/18/2023 Type 2 diabetes mellitus with complication, without long-term current use of insulin ([facility]) 07/18/2023 Urge and stress incontinence 07/18/2023 Vitamin [...] ASSESSMENT AND PLAN: documented in this encounter [facility] 05-28-2024 History of Presen t illness Narrative Associated Problem(s): 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 (CMS/HCC) Noted on past CT scans, felt to be adenoma, however is getting larger in size Will order CT scan adrenal gland protocol documented in this encounter [facility] 05-19-2024 History of Presen t illness Narrative [...] D-3) 50 mcg, Oral, Daily Continuous Glucose Clothing Busheler (FreeStyle Julisa 2 [place]) device 1 kit, Does not apply, Every 14 days Continuous Glucose Clothing Busheler (FreeStyle Julisa 2 Bonfield) device USE DIRECTED Continuous Glucose Sensor (FreeStyle [...] day (morning and mid-day) Sure Comfort Pen Taloga 32G X 4 MM misc 1 each, [...] necrosis or infection, unspecified Anxiety and depression ([facility]) 07/18/2023 Atrial fibrillation ([facility]) 07/18/2023 Body mass index (BMI) 40.0-44.9, adult ([facility]) COPD mixed type ([facility]) 05/23/2023 Dietary counseling and surveillance Drug-induced acute pancreatitis 07/18/2023 Edema of extremities 07/18/2023 Essential (primary) hypertension ([facility]) 12/04/2010 GERD (gastroesophageal reflux disease) 07/18/2023 HLD (hyperlipidemia) ([facility]) 07/18/2023 Hx of being hospitalized 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) 07/18/2023 Seasonal allergies 07/18/2023 Tobacco user 07/18/2023 Type 2 diabetes mellitus with complication, without long-term current use of insulin ([facility]) 07/18/2023 Urge and stress incontinence 07/18/2023 Vitamin [...] as well as stress from S.O. in snf Right wrist pain - Primary No hx [...] as well as stress from S.O. in snf documented in this encounter [facility] 05-19-2024 Instructions Maira Rush NP - 05/19/2024 2:00 PM EST Cosmo wrap to right wrist for [address] ice to affected area 3-4 times daily for 20 minutes each Follow up if not better documented in this encounter [facility] 05-06-2024 History of Presen t illness Narrative [...] D-3) 50 mcg, Oral, Daily Continuous Glucose Clothing Busheler (FreeStyle Julisa 2 [place]) device 1 kit, Does not apply, Every 14 days Continuous Glucose Clothing Busheler (FreeStyle Julisa 2 [place]) device USE DIRECTED Continuous Glucose Sensor (FreeStyle [...] day (morning and mid-day) Sure Comfort Pen Taloga 32G X 4 MM misc 1 each, [...] necrosis or infection, unspecified Anxiety and depression ([facility]) 07/18/2023 Atrial fibrillation ([facility]) 07/18/2023 Body mass index (BMI) 40.0-44.9, adult ([facility]) COPD mixed type ([facility]) 05/23/2023 Dietary counseling and surveillance Drug-induced acute pancreatitis 07/18/2023 Edema of extremities 07/18/2023 Essential (primary) hypertension ([facility]) 12/04/2010 GERD (gastroesophageal reflux disease) 07/18/2023 HLD (hyperlipidemia) ([facility]) 07/18/2023 Hx of being hospitalized PNEUMONIA retirement (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 ([facility]) Medical non-compliance 07/18/2023 Morbid obesity with body mass index (BMI) of 40.0 to 49.9 ([facility]) 07/18/2023 Neuropathy, diabetic ([facility]) 07/18/2023 SANTO (obstructive sleep apnea) 07/18/2023 Osteoporosis ([facility]) 07/18/2023 Seasonal allergies 07/18/2023 Tobacco user 07/18/2023 Type 2 diabetes mellitus with complication, without long-term current use of insulin ([facility]) 07/18/2023 Urge and stress incontinence 07/18/2023 Vitamin [...] Items Addressed This Visit COPD mixed type ([facility]) - Primary Quit smoking Continue inhalers Fu with pulmonologoist Primary hypertension ([facility]) Please check blood pressure daily and record DASH diet Limit caffeine Take medication as directed Contact office if chest pain, pressure, dizziness, shortness of breath, swelling legs Recommend slow position changes Current meds: b dania and arb SANTO (obstructive sleep apnea) Non compliance , has been instructed in the past on importance of need to wear PAP Not wearing risk stroke, GA, Atrial fibrillation ([facility]) Cont current meds and anticoagulation Tobacco user The patient has been advised of the risks of continued smoking: stroke, GA, all forms of cancer, lung disease, and [...] complication, with long-term current use of insulin ([facility]) Check blood sugars daily, notify if <70 [...] Needs fu CT due now, order to [facility] CAP (community acquired pneumonia) Finished atb Breathing: improved Fever:none No productive cough Other Visit Diagnoses Needs flu shot Relevant Orders Flu vaccine, high dose seasonal, PF (GSL625) (Fluzone High Dose) (Completed) Associated Problem(s): Tobacco user The patient has been advised of the risks of continued smoking: stroke, GA, all forms of cancer, lung disease, and [...] complication, with long-term current use of insulin ([facility]) Check blood sugars daily, notify if <70 [...] arb and asa Associated Problem(s): Atrial fibrillation ([facility]) Cont current meds and anticoagulation Associated Problem(s): Primary hypertension ([facility]) Please check blood pressure daily and record [...] Needs fu CT due now, order to [facility] Associated Problem(s): SANTO (obstructive sleep apnea) Non compliance , has been instructed in the past on importance of need to wear PAP Not wearing risk stroke, GA, documented in this encounter [facility] 05-06-2024 Instructions Maira Rush NP - 05/06/2024 1:20 PM EST Diabetes: continue with dr allison, please call and schedule a diabetic eye exam Lumber Tripper: please call to schedule an appointment Mammogram: I will fax order to [facility] documented in this encounter [facility] 04-22-2024 History of Presen t illness Narrative [...] Hospitalizations in the last year: yes Specialist: Ambulance Mechanic [facility] Kalina Torres for Endo/DM, Lumber Tripper: Janet-has not seen in a while Recent [...] being taken. She does not see a hull inspector.Eye exam is not current. SUBJECTIVE: MEDICATIONS: Current [...] D-3) 50 mcg, Oral, Daily Continuous Glucose Clothing Busheler (FreeStyle Julisa 2 Bonfield) device Continuous Glucose Clothing Busheler (FreeStyle Julisa 2 [place]field) device 1 kit, Does not apply, Every [...] day (morning and mid-day) Sure Comfort Pen Taloga 32G X 4 MM misc 1 each, [...] necrosis or infection, unspecified Anxiety and depression ([facility]) 07/18/2023 Atrial fibrillation ([facility]) 07/18/2023 Body mass index (BMI) 40.0-44.9, adult ([facility]) COPD mixed type ([facility]) 05/23/2023 Dietary counseling and surveillance Drug-induced acute pancreatitis 07/18/2023 Edema of extremities 07/18/2023 Essential (primary) hypertension ([facility]) 12/04/2010 GERD (gastroesophageal reflux disease) 07/18/2023 HLD (hyperlipidemia) ([facility]) 07/18/2023 Hx of being hospitalized PNEUMONIA retirement (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 ([facility]) Medical non-compliance 07/18/2023 Morbid obesity with body mass index (BMI) of 40.0 to 49.9 ([facility]) 07/18/2023 Neuropathy, diabetic ([facility]) 07/18/2023 SANTO (obstructive sleep apnea) 07/18/2023 Osteoporosis ([facility]) 07/18/2023 Seasonal allergies 07/18/2023 Tobacco user 07/18/2023 Type 2 diabetes mellitus with complication, without long-term current use of insulin ([facility]) 07/18/2023 Urge and stress incontinence 07/18/2023 Vitamin [...] Addressed This Visit COPD mixed type (CMS/HCC) Quit smoking Continue inhalers Fu with pulmonologoist Relevant Medications albuterol (2.5 MG/3ML) 0.083% nebulizer solution tiotropium (Spiriva Respimat) 2.5 MCG/ACT inhaler Other Relevant Orders CT chest w IV contrast Primary hypertension ([facility]) Please check blood pressure daily and record DASH diet Limit caffeine Take medication as directed Contact office if chest pain, pressure, dizziness, shortness of breath, swelling legs Recommend slow position changes Relevant Medications spironolactone (Aldactone) 25 MG tablet losartan (Cozaar) 100 MG tablet Type 2 diabetes mellitus with diabetic neuropathy, with long-term current use of insulin ([facility]) Recommend tight blood sugar control Relevant Medications [...] of the risks of continued smoking: stroke, GA, all forms of cancer, lung disease, and [...] (Crestor) 5 MG tablet Anxiety and depression ([facility]) At last appt we increased dose of paxil: Relevant Medications PARoxetine (Paxil) 20 MG tablet Obesity (BMI 30-39.9) Type 2 diabetes mellitus without complication, with long-term current use of insulin ([facility]) Continue with dr allison for management of [...] of the risks of continued smoking: stroke, GA, all forms of cancer, lung disease, and [...] yearly and prn documented in this encounter [facility] 04-22-2024 Instructions Maira Rush NP - 04/22/2024 9:20 AM EST New atb for pneumonia Need to schedule with pulmonology and eye doctor Eye doctor is : [phone] [facility] Lung doctor: [place] [facility] [phone] documented in this encounter [facility] 04-21-2024 History of Presen t illness Narrative [...] is on Basaglar 40 units and NovoLog 8/10/12 plus scale #2, metformin 500 mg twice [...] (VITAMIN D-3) 2,000 Units, Daily Continuous Glucose Clothing Busheler (FreeStyle Julisa 2 [place]) device Continuous Glucose Sensor (FreeStyle Julisa 2 Sensor) [facility] [place] empagliflozin (JARDIANCE) 25 mg, Oral, Daily empagliflozin [...] day (morning and mid-day) Sure Comfort Pen [place] 32G X 4 MM misc 1 each, [...] necrosis or infection, unspecified Anxiety and depression ([facility]) 07/18/2023 Atrial fibrillation ([facility]) 07/18/2023 Body mass index (BMI) 40.0-44.9, adult ([facility]) COPD mixed type ([facility]) 05/23/2023 Dietary counseling and surveillance Drug-induced acute pancreatitis 07/18/2023 Edema of extremities 07/18/2023 Essential (primary) hypertension ([facility]) 12/04/2010 GERD (gastroesophageal reflux disease) 07/18/2023 HLD (hyperlipidemia) ([facility]) 07/18/2023 Hx of being hospitalized PNEUMONIA retirement (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 ([facility]) Medical non-compliance 07/18/2023 Morbid obesity with body mass index (BMI) of 40.0 to 49.9 ([facility]) 07/18/2023 Neuropathy, diabetic ([facility]) 07/18/2023 SANTO (obstructive sleep apnea) 07/18/2023 Osteoporosis ([facility]) 07/18/2023 Seasonal allergies 07/18/2023 Tobacco user 07/18/2023 Type 2 diabetes mellitus with complication, without long-term current use of insulin ([facility]) 07/18/2023 Urge and stress incontinence 07/18/2023 Vitamin [...] hyperglycemia, with long-term current use of insulin ([facility]) - POCT glucose manually resulted - POCT [...] the patient Vitamin D deficiency Primary hypertension ([facility]) To follow with her PCP Hyperlipemia, mixed ([facility]) Continue with statin Crestor 5 mg once a day Insulin long-term use ([facility]) Class 1 obesity due to excess calories without serious comorbidity with body mass index (BMI) of 33.0 to 33.9 in adult Follow up in about 3 months (around 07/22/2024). documented in this encounter [facility] 04-09-2024 Telephone encounter Note I would like Dneae Dior to be enrolled in [facility] if her insurance allows She is now living on her own, is in the Detention. She has not been to see Dr Allison for some time, he is the one to manage her DM, recent A1c is 10.4% LA [facility] 04-09-2024 Miscellaneous Notes I would like Denae Dior to be enrolled in [facility] if her insurance allows She is now living on her own, is in the Detention. She has not been to see Dr Allison for some time, he is the one to manage her DM, recent A1c is 10.4% LA documented in this encounter [facility] 03-18-2024 Telephone encounter Note Contact provider this morning, she is now starting to cough up yellow mucus and worsening in symtpoms, no fever, no NVD Will send in atb Also needs humidification for her oxygen She is instructed if atb does not help will need fu apppt [place] [facility] 03-18-2024 Miscellaneous Notes Contact provider this morning, she is now starting to cough up yellow mucus and worsening in symtpoms, no fever, no NVD Will send in atb Also needs humidification for her oxygen She is instructed if atb does not help will need fu apppt [place] documented in this encounter [facility] 03-11-2024 History of Presen t illness Narrative Associated Problem(s): Type 2 diabetes mellitus without complication, with long-term current use of insulin ([facility]) Phone number given for pt to contact [...] D-3) 2,000 Units, Oral, Daily Continuous Glucose Clothing Busheler (FreeStyle Julisa 2 [place]) device Continuous Glucose Sensor (FreeStyle Julisa 2 Sensor) mis empagliflozin (JARDIANCE) 25 mg, Oral, Daily furosemide [...] day (morning and mid-day) Sure Comfort Pen Taloga 32G X 4 MM misc 1 each, [...] Medical History: Diagnosis Date Anxiety and depression ([facility]) 07/18/2023 Atrial fibrillation ([facility]) 07/18/2023 COPD mixed type ([facility]) 05/23/2023 Drug-induced acute pancreatitis 07/18/2023 Edema of extremities 07/18/2023 GERD (gastroesophageal reflux disease) 07/18/2023 HLD (hyperlipidemia) ([facility]) 07/18/2023 Medical non-compliance 07/18/2023 Morbid obesity with body mass index (BMI) of 40.0 to 49.9 ([facility]) 07/18/2023 Neuropathy, diabetic ([facility]) 07/18/2023 SANTO (obstructive sleep apnea) 07/18/2023 Osteoporosis ([facility]) 07/18/2023 Seasonal allergies 07/18/2023 Tobacco user 07/18/2023 Type 2 diabetes mellitus with complication, without long-term current use of insulin ([facility]) 07/18/2023 Urge and stress incontinence 07/18/2023 Vitamin [...] complication, with long-term current use of insulin ([facility]) Phone number given for pt to contact Dr Allison office Relevant Orders Ambulatory referral to [facility] Viral upper respiratory tract infection - Primary Do not see any s/s bacterial infection, lungs clear Did in office Flu A/B/Covid: negative Fluids, rest, monitor for s/s worsening if so call office documented in this encounter [facility] 02-25-2024 History of Presen t illness Narrative [...] 25mg BID Her new med supply from [facility] is 25mg BID This may be related to her dizziness Will obtain notes from [facility], I did call medical records and left voice mail to send all ER notes for recent visit Associated Problem(s): Type 2 diabetes mellitus without complication, with long-term current use of insulin ([facility]) Continue current dosing of insulin at BID [...] fu appt with them Was in the [facility] er yesterday for dizziness: room spinning, [...] D-3) 2,000 Units, Oral, Daily Continuous Glucose Clothing Busheler (FreeStyle Julisa 2 [place]) device Continuous Glucose Sensor (FreeStyle Julisa 2 [...] day (morning and mid-day) Sure Comfort Pen Taloga 32G X 4 MM misc 1 each, [...] Medical History: Diagnosis Date Anxiety and depression ([facility]) 07/18/2023 Atrial fibrillation ([facility]) 07/18/2023 COPD mixed type ([facility]) 05/23/2023 Drug-induced acute pancreatitis 07/18/2023 Edema of extremities 07/18/2023 GERD (gastroesophageal reflux disease) 07/18/2023 HLD (hyperlipidemia) ([facility]) 07/18/2023 Medical non-compliance 07/18/2023 Morbid obesity with body mass index (BMI) of 40.0 to 49.9 ([facility]) 07/18/2023 Neuropathy, diabetic ([facility]) 07/18/2023 SANTO (obstructive sleep apnea) 07/18/2023 Osteoporosis ([facility]) 07/18/2023 Seasonal allergies 07/18/2023 Tobacco user 07/18/2023 Type 2 diabetes mellitus with complication, without long-term current use of insulin ([facility]) 07/18/2023 Urge and stress incontinence 07/18/2023 Vitamin [...] complication, with long-term current use of insulin ([facility]) Continue current dosing of insulin at BID [...] 25mg BID Her new med supply from [facility] is 25mg BID This may be related to her dizziness Will obtain notes from [facility], I did call medical records and left voice mail to send all ER notes for recent visit Open wound of buttock - Primary Recommend cleansing area with soap and water 3-4 times daily and apply zinc oxide cream Increase protein intake Fu in 2 weeks for recheck No atb needed at this time documented in this encounter [facility] 02-17-2024 History of Presen t illness Narrative Associated Problem(s): Dizziness and giddiness Could be still with getting stronger, also will check labs to r/o anemia or elyte abnormals Fu in 3 weeks Continue with home OT/PT Associated Problem(s): Type 2 diabetes mellitus without complication, with long-term current use of insulin ([facility]) Continue current dosing of insulin at BID And sliding scale insulin Associated Problem(s): Edema of extremities Stable at this time Associated Problem(s): Primary hypertension ([facility]) Stable at this time Associated Problem(s): Atrial fibrillation (CMS/HCC) Cont current meds and anticoagulation BS 200 or less Images from the original note were not included. Denae Dior is a 63 y.o. female presents with chief complaint of No chief complaint on file. HPI: Recent discharge from hospital and snf for weakness and inability to care for [...] no compliance problems. Hypertensive end-organ damage includes CAD/GA and heart failure. Diabetes She presents for [...] D-3) 2,000 Units, Oral, Daily Continuous Glucose Clothing Busheler (FreeStyle Julisa 2 [place]field) device Continuous Glucose Sensor (FreeStyle Julisa 2 [...] Oral, 2 times daily Sure Comfort Pen Taloga 32G X 4 MM misc 1 each, [...] Medical History: Diagnosis Date Anxiety and depression ([facility]) 07/18/2023 Atrial fibrillation ([facility]) 07/18/2023 COPD mixed type ([facility]) 05/23/2023 Drug-induced acute pancreatitis 07/18/2023 Edema of extremities 07/18/2023 GERD (gastroesophageal reflux disease) 07/18/2023 HLD (hyperlipidemia) ([facility]) 07/18/2023 Medical non-compliance 07/18/2023 Morbid obesity with body mass index (BMI) of 40.0 to 49.9 ([facility]) 07/18/2023 Neuropathy, diabetic ([facility]) 07/18/2023 SANTO (obstructive sleep apnea) 07/18/2023 Osteoporosis ([facility]) 07/18/2023 Seasonal allergies 07/18/2023 Tobacco user 07/18/2023 Type 2 diabetes mellitus with complication, without long-term current use of insulin ([facility]) 07/18/2023 Urge and stress incontinence 07/18/2023 Vitamin [...] microscopic (clean catch) documented in this encounter [facility] 07-18-2023 History of Presen t illness Narrative [...] to wear PAP Not wearing risk stroke, GA, Associated Problem(s): Type 2 diabetes mellitus with diabetic neuropathy, with long-term current use of insulin ([facility]) Non compliant with follow up with Endo Explained to her her persistent non compliance will lead to increase risk stroke, GA, blindness, amputation, as well as CKD Instructed [...] 2 puffs, Inhalation, Daily Sure Comfort Pen Taloga 32G X 4 MM misc 1 each, [...] Medical History: Diagnosis Date Anxiety and depression ([facility]) 07/18/2023 Atrial fibrillation ([facility]) 07/18/2023 COPD mixed type ([facility]) 05/23/2023 Drug-induced acute pancreatitis 07/18/2023 Edema of extremities 07/18/2023 GERD (gastroesophageal reflux disease) 07/18/2023 HLD (hyperlipidemia) ([facility]) 07/18/2023 Medical non-compliance 07/18/2023 Morbid obesity with body mass index (BMI) of 40.0 to 49.9 ([facility]) 07/18/2023 Neuropathy, diabetic ([facility]) 07/18/2023 SANTO (obstructive sleep apnea) 07/18/2023 Osteoporosis ([facility]) 07/18/2023 Seasonal allergies 07/18/2023 Tobacco user 07/18/2023 Type 2 diabetes mellitus with complication, without long-term current use of insulin ([facility]) 07/18/2023 Urge and stress incontinence 07/18/2023 Vitamin [...] compliance will lead to increase risk stroke, GA, blindness, amputation, as well as CKD Instructed [...] to wear PAP Not wearing risk stroke, GA, GERD (gastroesophageal reflux disease) Relevant Orders CBC and differential Vitamin D deficiency Relevant Orders Vitamin D 25 hydroxy Type 2 diabetes mellitus with complication, without long-term current use of insulin (CMS/HCC) Relevant Orders Comprehensive metabolic panel Microalbumin / creatinine, urine ratio Urinalysis with reflex microscopic (clean catch) Hemoglobin A1c HLD (hyperlipidemia) ([facility]) Relevant Orders Lipid panel Comprehensive metabolic panel Anxiety and depression ([facility]) Stable at this time Encounter for screening mammogram for malignant neoplasm of breast Relevant Orders Bilateral screening mammogram COVID Recent hospitalization for this, appears to be doing quite well Open wound No s/s infection, recommend using diaper barrier ointment on this documented in this encounter [facility] 06-07-2022 Note PROCEDURE: XR FOOT L T [...] 08:43 [facility] Evaluation note Diagnosis Primary hypertension (CMS/HCC)- Primary [...] mass index (BMI) of 40.0 to 49.9 ([facility]) documented in this encounter [facility] HealthcareEvaluation note* Diagnosis Viral upper respiratory tract infection- Primary Acute upper respiratory infections of unspecified site Tobacco user Tobacco use disorder Open wound Open wound(s) (multiple) of unspecified site(s), without mention of complication Obesity (BMI 30-39.9) Type 2 diabetes mellitus without complication, with long-term current use of insulin ([facility]) documented in this encounter [facility] HealthcareEvaluation note* Diagnosis Primary hypertension ([facility])- Primary Unspecified essential hypertension Type 2 diabetes mellitus with diabetic neuropathy, with long-term current use of insulin ([facility]) Gastroesophageal reflux disease, unspecified whether esophagitis present Vitamin D deficiency Type 2 diabetes mellitus with complication, without long-term current use of insulin ([facility]) Mixed hyperlipidemia ([facility]) Mixed hyperlipidemia Encounter for screening mammogram for malignant neoplasm of breast SANTO (obstructive sleep apnea) Obstructive sleep apnea (adult) (pediatric) COPD mixed type ([facility]) Anxiety and depression ([facility]) COVID Open wound Open wound(s) (multiple) of unspecified site(s), without mention of complication Morbid obesity with body mass index (BMI) of 40.0 to 49.9 ([facility]) COPD mixed type ([facility])- Primary Dysuria Atrial fibrillation, unspecified type ([facility]) Gastroesophageal reflux disease, unspecified whether esophagitis present Type 2 diabetes mellitus with complication, without long-term current use of insulin ([facility]) Obesity (BMI 30-39.9) Tobacco user Tobacco use disorder Anxiety and depression ([facility]) Dermatitis Contact dermatitis and other eczema, due to unspecified cause Anxiety and depression ([facility])- Primary Obesity (BMI 30-39.9) Type 2 diabetes mellitus with complication, without long-term current use of insulin ([facility]) Medical non-compliance Tobacco user Tobacco use disorder Type 2 diabetes mellitus with hyperglycemia ([facility])- Primary Primary hypertension ([facility]) Unspecified essential hypertension Edema of extremities Edema Type 2 diabetes mellitus without complication, with long-term current use of insulin ([facility]) Vitamin D deficiency Tobacco user Tobacco use disorder Dizziness and giddiness Atrial fibrillation, unspecified type ([facility]) COPD mixed type ([facility]) Open wound of buttock, unspecified laterality, initial encounter- Primary Type 2 diabetes mellitus without complication, with long-term current use of insulin ([facility]) Obesity (BMI 30-39.9) Dizziness and giddiness Viral upper respiratory tract infection- Primary Acute upper respiratory infections of unspecified site Tobacco user Tobacco use disorder Open wound Open wound(s) (multiple) of unspecified site(s), without mention of complication Obesity (BMI 30-39.9) Type 2 diabetes mellitus without complication, with long-term current use of insulin ([facility]) Primary hypertension ([facility])- Primary Unspecified essential hypertension Edema of extremities Edema documented in this encounter [facility] HealthcareEvaluation note* Diagnosis Primary hypertension ([facility])- Primary Unspecified essential hypertension Type 2 diabetes mellitus with diabetic neuropathy, with long-term current use of insulin ([facility]) Gastroesophageal reflux disease, unspecified whether esophagitis present Vitamin D deficiency Type 2 diabetes mellitus with complication, without long-term current use of insulin ([facility]) Mixed hyperlipidemia ([facility]) Mixed hyperlipidemia Encounter for screening mammogram for malignant neoplasm of breast SANTO (obstructive sleep apnea) Obstructive sleep apnea (adult) (pediatric) COPD mixed type ([facility]) Anxiety and depression ([facility]) COVID Open wound Open wound(s) (multiple) of unspecified site(s), without mention of complication Morbid obesity with body mass index (BMI) of 40.0 to 49.9 ([facility]) COPD mixed type ([facility])- Primary Dysuria Atrial fibrillation, unspecified type ([facility]) Gastroesophageal reflux disease, unspecified whether esophagitis present Type 2 diabetes mellitus with complication, without long-term current use of insulin ([facility]) Obesity (BMI 30-39.9) Tobacco user Tobacco use disorder Anxiety and depression ([facility]) Dermatitis Contact dermatitis and other eczema, due to unspecified cause Anxiety and depression ([facility])- Primary Obesity (BMI 30-39.9) Type 2 diabetes mellitus with complication, without long-term current use of insulin ([facility]) Medical non-compliance Tobacco user Tobacco use disorder Type 2 diabetes mellitus with hyperglycemia ([facility])- Primary Primary hypertension ([facility]) Unspecified essential hypertension Edema of extremities Edema Type 2 diabetes mellitus without complication, with long-term current use of insulin ([facility]) Vitamin D deficiency Tobacco user Tobacco use disorder Dizziness and giddiness Atrial fibrillation, unspecified type ([facility]) COPD mixed type ([facility]) Open wound of buttock, unspecified laterality, initial encounter- Primary Type 2 diabetes mellitus without complication, with long-term current use of insulin ([facility]) Obesity (BMI 30-39.9) Dizziness and giddiness Viral upper respiratory tract infection- Primary Acute upper respiratory infections of unspecified site Tobacco user Tobacco use disorder Open wound Open wound(s) (multiple) of unspecified site(s), without mention of complication Obesity (BMI 30-39.9) Type 2 diabetes mellitus without complication, with long-term current use of insulin ([facility]) COPD mixed type ([facility])- Primary URI, acute Acute upper respiratory infections of unspecified site documented in this encounter [facility] HealthcareEvaluation note* Diagnosis Primary hypertension ([facility])- Primary Unspecified essential hypertension Type 2 diabetes mellitus with diabetic neuropathy, with long-term current use of insulin ([facility]) Gastroesophageal reflux disease, unspecified whether esophagitis present Vitamin D deficiency Type 2 diabetes mellitus with complication, without long-term current use of insulin ([facility]) Mixed hyperlipidemia ([facility]) Mixed hyperlipidemia Encounter for screening mammogram for malignant neoplasm of breast SANTO (obstructive sleep apnea) Obstructive sleep apnea (adult) (pediatric) COPD mixed type ([facility]) Anxiety and depression ([facility]) COVID Open wound Open wound(s) (multiple) of unspecified site(s), without mention of complication Morbid obesity with body mass index (BMI) of 40.0 to 49.9 ([facility]) COPD mixed type (CMS/HCC)- Primary Dysuria Atrial fibrillation, unspecified type ([facility]) Gastroesophageal reflux disease, unspecified whether esophagitis present Type 2 diabetes mellitus with complication, without long-term current use of insulin ([facility]) Obesity (BMI 30-39.9) Tobacco user Tobacco use disorder Anxiety and depression ([facility]) Dermatitis Contact dermatitis and other eczema, due to unspecified cause Anxiety and depression ([facility])- Primary Obesity (BMI 30-39.9) Type 2 diabetes mellitus with complication, without long-term current use of insulin ([facility]) Medical non-compliance Tobacco user Tobacco use disorder Type 2 diabetes mellitus with hyperglycemia ([facility])- Primary Primary hypertension ([facility]) Unspecified essential hypertension Edema of extremities Edema Type 2 diabetes mellitus without complication, with long-term current use of insulin ([facility]) Vitamin D deficiency Tobacco user Tobacco use disorder Dizziness and giddiness Atrial fibrillation, unspecified type ([facility]) COPD mixed type ([facility]) Open wound of buttock, unspecified laterality, initial encounter- Primary Type 2 diabetes mellitus without complication, with long-term current use of insulin ([facility]) Obesity (BMI 30-39.9) Dizziness and giddiness Viral upper respiratory tract infection- Primary Acute upper respiratory infections of unspecified site Tobacco user Tobacco use disorder Open wound Open wound(s) (multiple) of unspecified site(s), without mention of complication Obesity (BMI 30-39.9) Type 2 diabetes mellitus without complication, with long-term current use of insulin ([facility]) COPD mixed type ([facility]) URI, acute Acute upper respiratory infections of unspecified site documented in this encounter [facility] HealthcareEvaluation note* Diagnosis Primary hypertension ([facility])- Primary Unspecified essential hypertension Type 2 diabetes mellitus with diabetic neuropathy, with long-term current use of insulin ([facility]) Gastroesophageal reflux disease, unspecified whether esophagitis present Vitamin D deficiency Type 2 diabetes mellitus with complication, without long-term current use of insulin ([facility]) Mixed hyperlipidemia ([facility]) Mixed hyperlipidemia Encounter for screening mammogram for malignant neoplasm of breast SANTO (obstructive sleep apnea) Obstructive sleep apnea (adult) (pediatric) COPD mixed type ([facility]) Anxiety and depression ([facility]) COVID Open wound Open wound(s) (multiple) of unspecified site(s), without mention of complication Morbid obesity with body mass index (BMI) of 40.0 to 49.9 ([facility]) COPD mixed type ([facility])- Primary Dysuria Atrial fibrillation, unspecified type ([facility]) Gastroesophageal reflux disease, unspecified whether esophagitis present Type 2 diabetes mellitus with complication, without long-term current use of insulin ([facility]) Obesity (BMI 30-39.9) Tobacco user Tobacco use disorder Anxiety and depression ([facility]) Dermatitis Contact dermatitis and other eczema, due to unspecified cause Anxiety and depression ([facility])- Primary Obesity (BMI 30-39.9) Type 2 diabetes mellitus with complication, without long-term current use of insulin ([facility]) Medical non-compliance Tobacco user Tobacco use disorder Type 2 diabetes mellitus with hyperglycemia ([facility])- Primary Primary hypertension ([facility]) Unspecified essential hypertension Edema of extremities Edema Type 2 diabetes mellitus without complication, with long-term current use of insulin ([facility]) Vitamin D deficiency Tobacco user Tobacco use disorder Dizziness and giddiness Atrial fibrillation, unspecified type ([facility]) COPD mixed type ([facility]) Open wound of buttock, unspecified laterality, initial encounter- Primary Type 2 diabetes mellitus without complication, with long-term current use of insulin ([facility]) Obesity (BMI 30-39.9) Dizziness and giddiness Viral upper respiratory tract infection- Primary Acute upper respiratory infections of unspecified site Tobacco user Tobacco use disorder Open wound Open wound(s) (multiple) of unspecified site(s), without mention of complication Obesity (BMI 30-39.9) Type 2 diabetes mellitus without complication, with long-term current use of insulin ([facility]) Encounter for wellness examination- Primary Osteoporosis, unspecified osteoporosis type, unspecified pathological fracture presence ([facility]) Open wound of buttock, unspecified laterality, initial encounter Type 2 diabetes mellitus without complication, with long-term current use of insulin ([facility]) Obesity (BMI 30-39.9) Tobacco user Tobacco use disorder Anxiety and depression ([facility]) Type 2 diabetes mellitus with diabetic neuropathy, with long-term current use of insulin ([facility]) COPD mixed type ([facility]) Diabetic polyneuropathy associated with type 2 diabetes mellitus ([facility]) Gastroesophageal reflux disease, unspecified whether esophagitis present Mixed hyperlipidemia ([facility]) Mixed hyperlipidemia Primary hypertension ([facility]) Unspecified essential hypertension Edema of extremities Edema Lung nodule, multiple Lymphadenopathy, generalized Vitamin D deficiency Oxygen dependent Dependence on supplemental oxygen Community acquired pneumonia, unspecified laterality documented in this encounter [facility] HealthcareEvaluation note* Diagnosis Primary hypertension ([facility])- Primary Unspecified essential hypertension Type 2 diabetes mellitus with diabetic neuropathy, with long-term current use of insulin ([facility]) Gastroesophageal reflux disease, unspecified whether esophagitis present Vitamin D deficiency Type 2 diabetes mellitus with complication, without long-term current use of insulin ([facility] Mixed hyperlipidemia ([facility]) Mixed hyperlipidemia Encounter for screening mammogram for malignant neoplasm of breast SANTO (obstructive sleep apnea) Obstructive sleep apnea (adult) (pediatric) COPD mixed type ([facility]) Anxiety and depression ([facility]) COVID Open wound Open wound(s) (multiple) of unspecified site(s), without mention of complication Morbid obesity with body mass index (BMI) of 40.0 to 49.9 ([facility]) COPD mixed type ([facility])- Primary Dysuria Atrial fibrillation, unspecified type ([facility]) Gastroesophageal reflux disease, unspecified whether esophagitis present Type 2 diabetes mellitus with complication, without long-term current use of insulin ([facility]) Obesity (BMI 30-39.9) Tobacco user Tobacco use disorder Anxiety and depression ([facility]) Dermatitis Contact dermatitis and other eczema, due to unspecified cause Anxiety and depression ([facility])- Primary Obesity (BMI 30-39.9) Type 2 diabetes mellitus with complication, without long-term current use of insulin ([facility]) Medical non-compliance Tobacco user Tobacco use disorder Type 2 diabetes mellitus with hyperglycemia ([facility])- Primary Primary hypertension ([facility]) Unspecified essential hypertension Edema of extremities Edema Type 2 diabetes mellitus without complication, with long-term current use of insulin ([facility]) Vitamin D deficiency Tobacco user Tobacco use disorder Dizziness and giddiness Atrial fibrillation, unspecified type ([facility]) COPD mixed type ([facility]) Open wound of buttock, unspecified laterality, initial encounter- Primary Type 2 diabetes mellitus without complication, with long-term current use of insulin ([facility]) Obesity (BMI 30-39.9) Dizziness and giddiness Viral upper respiratory tract infection- Primary Acute upper respiratory infections of unspecified site Tobacco user Tobacco use disorder Open wound Open wound(s) (multiple) of unspecified site(s), without mention of complication Obesity (BMI 30-39.9) Type 2 diabetes mellitus without complication, with long-term current use of insulin ([facility]) Encounter for wellness examination- Primary Osteoporosis, unspecified osteoporosis type, unspecified pathological fracture presence ([facility]) Open wound of buttock, unspecified laterality, initial encounter Type 2 diabetes mellitus without complication, with long-term current use of insulin ([facility]) Obesity (BMI 30-39.9) Tobacco user Tobacco use disorder Anxiety and depression ([facility]) Type 2 diabetes mellitus with diabetic neuropathy, with long-term current use of insulin ([facility]) COPD mixed type ([facility]) Diabetic polyneuropathy associated with type 2 diabetes mellitus ([facility]) Gastroesophageal reflux disease, unspecified whether esophagitis present Mixed hyperlipidemia ([facility]) Mixed hyperlipidemia Primary hypertension ([facility]) Unspecified essential hypertension Edema of extremities Edema Lung nodule, multiple Lymphadenopathy, generalized Vitamin D deficiency Oxygen dependent Dependence on supplemental oxygen Community acquired pneumonia, unspecified laterality COPD mixed type ([facility])- Primary SANTO (obstructive sleep apnea) Obstructive sleep apnea (adult) (pediatric) Lung nodule, multiple Community acquired pneumonia, unspecified laterality Primary hypertension ([facility]) Unspecified essential hypertension Atrial fibrillation, unspecified type ([facility]) Type 2 diabetes mellitus without complication, with long-term current use of insulin ([facility]) Tobacco user Tobacco use disorder Needs flu shot Need for prophylactic vaccination and inoculation against influenza documented in this encounter [facility] HealthcareEvaluation note* Diagnosis Type 2 diabetes mellitus with hyperglycemia ([facility])- Primary Primary hypertension ([facility]) Unspecified essential hypertension Edema of extremities Edema Type 2 diabetes mellitus without complication, with long-term current use of insulin ([facility]) Vitamin D deficiency Tobacco user Tobacco use disorder Dizziness and giddiness Atrial fibrillation, unspecified type ([facility] COPD mixed type ([facility]) documented in this encounter [facility] HealthcareEvaluation note* Diagnosis Primary hypertension ([facility])- Primary Unspecified essential hypertension Type 2 diabetes mellitus with diabetic neuropathy, with long-term current use of insulin ([facility]) Gastroesophageal reflux disease, unspecified whether esophagitis present Vitamin D deficiency Type 2 diabetes mellitus with complication, without long-term current use of insulin ([facility]) Mixed hyperlipidemia ([facility]) Mixed hyperlipidemia Encounter for screening mammogram for malignant neoplasm of breast SANTO (obstructive sleep apnea) Obstructive sleep apnea (adult) (pediatric) COPD mixed type ([facility]) Anxiety and depression ([facility]) COVID Open wound Open wound(s) (multiple) of unspecified site(s), without mention of complication Morbid obesity with body mass index (BMI) of 40.0 to 49.9 ([facility]) COPD mixed type ([facility])- Primary Dysuria Atrial fibrillation, unspecified type ([facility]) Gastroesophageal reflux disease, unspecified whether esophagitis present Type 2 diabetes mellitus with complication, without long-term current use of insulin ([facility]) Obesity (BMI 30-39.9) Tobacco user Tobacco use disorder Anxiety and depression ([facility]) Dermatitis Contact dermatitis and other eczema, due to unspecified cause Anxiety and depression ([facility])- Primary Obesity (BMI 30-39.9) Type 2 diabetes mellitus with complication, without long-term current use of insulin ([facility]) Medical non-compliance Tobacco user Tobacco use disorder Type 2 diabetes mellitus with hyperglycemia ([facility])- Primary Primary hypertension ([facility]) Unspecified essential hypertension Edema of extremities Edema Type 2 diabetes mellitus without complication, with long-term current use of insulin ([facility]) Vitamin D deficiency Tobacco user Tobacco use disorder Dizziness and giddiness Atrial fibrillation, unspecified type ([facility]) COPD mixed type ([facility]) Open wound of buttock, unspecified laterality, initial encounter- Primary Type 2 diabetes mellitus without complication, with long-term current use of insulin ([facility]) Obesity (BMI 30-39.9) Dizziness and giddiness Viral upper respiratory tract infection- Primary Acute upper respiratory infections of unspecified site Tobacco user Tobacco use disorder Open wound Open wound(s) (multiple) of unspecified site(s), without mention of complication Obesity (BMI 30-39.9) Type 2 diabetes mellitus without complication, with long-term current use of insulin ([facility]) Encounter for wellness examination- Primary Osteoporosis, unspecified osteoporosis type, unspecified pathological fracture presence ([facility]) Open wound of buttock, unspecified laterality, initial encounter Type 2 diabetes mellitus without complication, with long-term current use of insulin ([facility]) Obesity (BMI 30-39.9) Tobacco user Tobacco use disorder Anxiety and depression ([facility]) Type 2 diabetes mellitus with diabetic neuropathy, with long-term current use of insulin ([facility]) COPD mixed type ([facility]) Diabetic polyneuropathy associated with type 2 diabetes mellitus ([facility]) Gastroesophageal reflux disease, unspecified whether esophagitis present Mixed hyperlipidemia ([facility] Mixed hyperlipidemia Primary hypertension ([facility]) Unspecified essential hypertension Edema of extremities Edema Lung nodule, multiple Lymphadenopathy, generalized Vitamin D deficiency Oxygen dependent Dependence on supplemental oxygen Community acquired pneumonia, unspecified laterality COPD mixed type ([facility])- Primary SANTO (obstructive sleep apnea) Obstructive sleep apnea (adult) (pediatric) Lung nodule, multiple Community acquired pneumonia, unspecified laterality Primary hypertension ([facility]) Unspecified essential hypertension Atrial fibrillation, unspecified type ([facility]) Type 2 diabetes mellitus without complication, with long-term current use of insulin ([facility]) Tobacco user Tobacco use disorder Needs flu shot Need for prophylactic vaccination and inoculation against influenza Lung nodule, multiple- Primary documented in this encounter [facility] HealthcareEvaluation note* Diagnosis Primary hypertension ([facility])- Primary Unspecified essential hypertension Type 2 diabetes mellitus with diabetic neuropathy, with long-term current use of insulin ([facility]) Gastroesophageal reflux disease, unspecified whether esophagitis present Vitamin D deficiency Type 2 diabetes mellitus with complication, without long-term current use of insulin ([facility] Mixed hyperlipidemia ([facility]) Mixed hyperlipidemia Encounter for screening mammogram for malignant neoplasm of breast SANTO (obstructive sleep apnea) Obstructive sleep apnea (adult) (pediatric) COPD mixed type ([facility]) Anxiety and depression ([facility]) COVID Open wound Open wound(s) (multiple) of unspecified site(s), without mention of complication Morbid obesity with body mass index (BMI) of 40.0 to 49.9 ([facility]) COPD mixed type ([facility])- Primary Dysuria Atrial fibrillation, unspecified type ([facility]) Gastroesophageal reflux disease, unspecified whether esophagitis present Type 2 diabetes mellitus with complication, without long-term current use of insulin ([facility]) Obesity (BMI 30-39.9) Tobacco user Tobacco use disorder Anxiety and depression ([facility]) Dermatitis Contact dermatitis and other eczema, due to unspecified cause Anxiety and depression ([facility])- Primary Obesity (BMI 30-39.9) Type 2 diabetes mellitus with complication, without long-term current use of insulin ([facility]) Medical non-compliance Tobacco user Tobacco use disorder Type 2 diabetes mellitus with hyperglycemia ([facility])- Primary Primary hypertension ([facility]) Unspecified essential hypertension Edema of extremities Edema Type 2 diabetes mellitus without complication, with long-term current use of insulin ([facility]) Vitamin D deficiency Tobacco user Tobacco use disorder Dizziness and giddiness Atrial fibrillation, unspecified type (CMS/HCC) COPD mixed type ([facility]) Open wound of buttock, unspecified laterality, initial encounter- Primary Type 2 diabetes mellitus without complication, with long-term current use of insulin ([facility]) Obesity (BMI 30-39.9) Dizziness and giddiness Viral upper respiratory tract infection- Primary Acute upper respiratory infections of unspecified site Tobacco user Tobacco use disorder Open wound Open wound(s) (multiple) of unspecified site(s), without mention of complication Obesity (BMI 30-39.9) Type 2 diabetes mellitus without complication, with long-term current use of insulin ([facility]) Encounter for wellness examination- Primary Osteoporosis, unspecified osteoporosis type, unspecified pathological fracture presence ([facility]) Open wound of buttock, unspecified laterality, initial encounter Type 2 diabetes mellitus without complication, with long-term current use of insulin ([facility]) Obesity (BMI 30-39.9) Tobacco user Tobacco use disorder Anxiety and depression ([facility]) Type 2 diabetes mellitus with diabetic neuropathy, with long-term current use of insulin ([facility]) COPD mixed type ([facility]) Diabetic polyneuropathy associated with type 2 diabetes mellitus ([facility]) Gastroesophageal reflux disease, unspecified whether esophagitis present Mixed hyperlipidemia ([facility] Mixed hyperlipidemia Primary hypertension ([facility]) Unspecified essential hypertension Edema of extremities Edema Lung nodule, multiple Lymphadenopathy, generalized Vitamin D deficiency Oxygen dependent Dependence on supplemental oxygen Community acquired pneumonia, unspecified laterality COPD mixed type ([facility])- Primary SANTO (obstructive sleep apnea) Obstructive sleep apnea (adult) (pediatric) Lung nodule, multiple Community acquired pneumonia, unspecified laterality Primary hypertension ([facility]) Unspecified essential hypertension Atrial fibrillation, unspecified type ([facility]) Type 2 diabetes mellitus without complication, with long-term current use of insulin ([facility]) Tobacco user Tobacco use disorder Needs flu shot Need for prophylactic vaccination and inoculation against influenza Right wrist pain- Primary Pain in joint, forearm Obesity (BMI 30-39.9) documented in this encounter [facility] HealthcareEvaluation note* Diagnosis Primary hypertension ([facility])- Primary Unspecified essential hypertension Type 2 diabetes mellitus with diabetic neuropathy, with long-term current use of insulin ([facility]) Gastroesophageal reflux disease, unspecified whether esophagitis present Vitamin D deficiency Type 2 diabetes mellitus with complication, without long-term current use of insulin ([facility]) Mixed hyperlipidemia ([facility]) Mixed hyperlipidemia Encounter for screening mammogram for malignant neoplasm of breast SANTO (obstructive sleep apnea) Obstructive sleep apnea (adult) (pediatric) COPD mixed type ([facility]) Anxiety and depression ([facility]) COVID Open wound Open wound(s) (multiple) of unspecified site(s), without mention of complication Morbid obesity with body mass index (BMI) of 40.0 to 49.9 ([facility]) COPD mixed type ([facility])- Primary Dysuria Atrial fibrillation, unspecified type ([facility]) Gastroesophageal reflux disease, unspecified whether esophagitis present Type 2 diabetes mellitus with complication, without long-term current use of insulin ([facility]) Obesity (BMI 30-39.9) Tobacco user Tobacco use disorder Anxiety and depression ([facility]) Dermatitis Contact dermatitis and other eczema, due to unspecified cause Anxiety and depression ([facility])- Primary Obesity (BMI 30-39.9) Type 2 diabetes mellitus with complication, without long-term current use of insulin ([facility]) Medical non-compliance Tobacco user Tobacco use disorder Type 2 diabetes mellitus with hyperglycemia ([facility])- Primary Primary hypertension ([facility]) Unspecified essential hypertension Edema of extremities Edema Type 2 diabetes mellitus without complication, with long-term current use of insulin ([facility]) Vitamin D deficiency Tobacco user Tobacco use disorder Dizziness and giddiness Atrial fibrillation, unspecified type ([facility]) COPD mixed type ([facility]) Open wound of buttock, unspecified laterality, initial encounter- Primary Type 2 diabetes mellitus without complication, with long-term current use of insulin ([facility]) Obesity (BMI 30-39.9) Dizziness and giddiness Viral upper respiratory tract infection- Primary Acute upper respiratory infections of unspecified site Tobacco user Tobacco use disorder Open wound Open wound(s) (multiple) of unspecified site(s), without mention of complication Obesity (BMI 30-39.9) Type 2 diabetes mellitus without complication, with long-term current use of insulin ([facility]) Type 2 diabetes mellitus with hyperglycemia, with long-term current use of insulin ([facility])- Primary Encounter for dietary consultation Vitamin D deficiency Primary hypertension ([facility]) Unspecified essential hypertension Hyperlipemia, mixed ([facility]) Mixed hyperlipidemia Insulin long-term use ([facility]) Encounter for long-term (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 Class 1 obesity due to excess calories without serious comorbidity with body mass index (BMI) of 33.0 to 33.9 in adult documented in this encounter [facility] HealthcareEvaluation note* Diagnosis Open wound of buttock, unspecified laterality, initial encounter- Primary Type 2 diabetes mellitus without complication, with long-term current use of insulin ([facility]) Obesity (BMI 30-39.9) Dizziness and giddiness documented in this encounter [facility] HealthcareEvaluation note* Diagnosis Primary hypertension ([facility])- Primary Unspecified essential hypertension Type 2 diabetes mellitus with diabetic neuropathy, with long-term current use of insulin ([facility]) Gastroesophageal reflux disease, unspecified whether esophagitis present Vitamin D deficiency Type 2 diabetes mellitus with complication, without long-term current use of insulin ([facility] Mixed hyperlipidemia ([facility]) Mixed hyperlipidemia Encounter for screening mammogram for malignant neoplasm of breast SANTO (obstructive sleep apnea) Obstructive sleep apnea (adult) (pediatric) COPD mixed type ([facility]) Anxiety and depression ([facility]) COVID Open wound Open wound(s) (multiple) of unspecified site(s), without mention of complication Morbid obesity with body mass index (BMI) of 40.0 to 49.9 ([facility]) COPD mixed type ([facility])- Primary Dysuria Atrial fibrillation, unspecified type ([facility]) Gastroesophageal reflux disease, unspecified whether esophagitis present Type 2 diabetes mellitus with complication, without long-term current use of insulin ([facility]) Obesity (BMI 30-39.9) Tobacco user Tobacco use disorder Anxiety and depression ([facility]) Dermatitis Contact dermatitis and other eczema, due to unspecified cause Anxiety and depression ([facility])- Primary Obesity (BMI 30-39.9) Type 2 diabetes mellitus with complication, without long-term current use of insulin ([facility]) Medical non-compliance Tobacco user Tobacco use disorder Type 2 diabetes mellitus with hyperglycemia ([facility])- Primary Primary hypertension ([facility]) Unspecified essential hypertension Edema of extremities Edema Type 2 diabetes mellitus without complication, with long-term current use of insulin ([facility]) Vitamin D deficiency Tobacco user Tobacco use disorder Dizziness and giddiness Atrial fibrillation, unspecified type ([facility]) COPD mixed type ([facility]) Open wound of buttock, unspecified laterality, initial encounter- Primary Type 2 diabetes mellitus without complication, with long-term current use of insulin ([facility]) Obesity (BMI 30-39.9) Dizziness and giddiness Viral upper respiratory tract infection- Primary Acute upper respiratory infections of unspecified site Tobacco user Tobacco use disorder Open wound Open wound(s) (multiple) of unspecified site(s), without mention of complication Obesity (BMI 30-39.9) Type 2 diabetes mellitus without complication, with long-term current use of insulin ([facility]) Encounter for wellness examination- Primary Osteoporosis, unspecified osteoporosis type, unspecified pathological fracture presence ([facility]) Open wound of buttock, unspecified laterality, initial encounter Type 2 diabetes mellitus without complication, with long-term current use of insulin ([facility]) Obesity (BMI 30-39.9) Tobacco user Tobacco use disorder Anxiety and depression ([facility]) Type 2 diabetes mellitus with diabetic neuropathy, with long-term current use of insulin ([facility]) COPD mixed type ([facility]) Diabetic polyneuropathy associated with type 2 diabetes mellitus ([facility]) Gastroesophageal reflux disease, unspecified whether esophagitis present Mixed hyperlipidemia ([facility] [facility] Mixed hyperlipidemia Primary hypertension ([facility]) Unspecified essential hypertension Edema of extremities Edema Lung nodule, multiple Lymphadenopathy, generalized Vitamin D deficiency Oxygen dependent Dependence on supplemental oxygen Community acquired pneumonia, unspecified laterality COPD mixed type ([facility])- Primary SANTO (obstructive sleep apnea) Obstructive sleep apnea (adult) (pediatric) Lung nodule, multiple Community acquired pneumonia, unspecified laterality Primary hypertension ([facility]) Unspecified essential hypertension Atrial fibrillation, unspecified type ([facility]) Type 2 diabetes mellitus without complication, with long-term current use of insulin ([facility]) Tobacco user Tobacco use disorder Needs flu shot Need for prophylactic vaccination and inoculation against influenza Right wrist pain- Primary Pain in joint, forearm Obesity (BMI 30-39.9) Lung nodule, multiple- Primary COPD mixed type ([facility]) documented in this encounter [facility]* Diagnosis Primary hypertension ([facility])- Primary Unspecified essential hypertension Type 2 diabetes mellitus with diabetic neuropathy, with long-term current use of insulin ([facility]) Gastroesophageal reflux disease, unspecified whether esophagitis present Vitamin D deficiency Type 2 diabetes mellitus with complication, without long-term current use of insulin ([facility]) Mixed hyperlipidemia ([facility]) Mixed hyperlipidemia Encounter for screening mammogram for malignant neoplasm of breast SANTO (obstructive sleep apnea) Obstructive sleep apnea (adult) (pediatric) COPD mixed type ([facility]) Anxiety and depression ([facility]) COVID Open wound Open wound(s) (multiple) of unspecified site(s), without mention of complication Morbid obesity with body mass index (BMI) of 40.0 to 49.9 ([facility] COPD mixed type ([facility])- Primary Dysuria Atrial fibrillation, unspecified type ([facility]) Gastroesophageal reflux disease, unspecified whether esophagitis present Type 2 diabetes mellitus with complication, without long-term current use of insulin ([facility]) Obesity (BMI 30-39.9) Tobacco user Tobacco use disorder Anxiety and depression ([facility]) Dermatitis Contact dermatitis and other eczema, due to unspecified cause Anxiety and depression ([facility])- Primary Obesity (BMI 30-39.9) Type 2 diabetes mellitus with complication, without long-term current use of insulin ([facility]) Medical non-compliance Tobacco user Tobacco use disorder Type 2 diabetes mellitus with hyperglycemia ([facility])- Primary Primary hypertension ([facility]) Unspecified essential hypertension Edema of extremities Edema Type 2 diabetes mellitus without complication, with long-term current use of insulin ([facility]) Vitamin D deficiency Tobacco user Tobacco use disorder Dizziness and giddiness Atrial fibrillation, unspecified type ([facility]) COPD mixed type ([facility]) Open wound of buttock, unspecified laterality, initial encounter- Primary Type 2 diabetes mellitus without complication, with long-term current use of insulin ([facility]) Obesity (BMI 30-39.9) Dizziness and giddiness Viral upper respiratory tract infection- Primary Acute upper respiratory infections of unspecified site Tobacco user Tobacco use disorder Open wound Open wound(s) (multiple) of unspecified site(s), without mention of complication Obesity (BMI 30-39.9) Type 2 diabetes mellitus without complication, with long-term current use of insulin ([facility]) Encounter for wellness examination- Primary Osteoporosis, unspecified osteoporosis type, unspecified pathological fracture presence ([facility]) Open wound of buttock, unspecified laterality, initial encounter Type 2 diabetes mellitus without complication, with long-term current use of insulin ([facility]) Obesity (BMI 30-39.9) Tobacco user Tobacco use disorder Anxiety and depression ([facility]) Type 2 diabetes mellitus with diabetic neuropathy, with long-term current use of insulin ([facility]) COPD mixed type ([facility]) Diabetic polyneuropathy associated with type 2 diabetes mellitus ([facility]) Gastroesophageal reflux disease, unspecified whether esophagitis present Mixed hyperlipidemia (CMS/HCC) Mixed hyperlipidemia Primary hypertension ([facility]) Unspecified essential hypertension Edema of extremities Edema Lung nodule, multiple Lymphadenopathy, generalized Vitamin D deficiency Oxygen dependent Dependence on supplemental oxygen Community acquired pneumonia, unspecified laterality COPD mixed type (CMS/HCC)- Primary SANTO (obstructive sleep apnea) Obstructive sleep apnea (adult) (pediatric) Lung nodule, multiple Community acquired pneumonia, unspecified laterality Primary hypertension (CMS/HCC) Unspecified essential hypertension Atrial fibrillation, unspecified type ([facility]) Type 2 diabetes mellitus without complication, with long-term current use of insulin ([facility]) Tobacco user Tobacco use disorder Needs flu shot Need for prophylactic vaccination and inoculation against influenza Right wrist pain- Primary Pain in joint, forearm Obesity (BMI 30-39.9) 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 ([facility])- Primary documented in this encounter [facility]* Diagnosis Primary hypertension ([facility])- Primary Unspecified essential hypertension Type 2 diabetes mellitus with diabetic neuropathy, with long-term current use of insulin ([facility]) Gastroesophageal reflux disease, unspecified whether esophagitis present Vitamin D deficiency Type 2 diabetes mellitus with complication, without long-term current use of insulin ([facility]) Mixed hyperlipidemia ([facility]) Mixed hyperlipidemia Encounter for screening mammogram for malignant neoplasm of breast SANTO (obstructive sleep apnea) Obstructive sleep apnea (adult) (pediatric) COPD mixed type ([facility]) Anxiety and depression ([facility]) COVID Open wound Open wound(s) (multiple) of unspecified site(s), without mention of complication Morbid obesity with body mass index (BMI) of 40.0 to 49.9 ([facility]) COPD mixed type (CMS/HCC)- Primary Dysuria Atrial fibrillation, unspecified type ([facility]) Gastroesophageal reflux disease, unspecified whether esophagitis present Type 2 diabetes mellitus with complication, without long-term current use of insulin ([facility]) Obesity (BMI 30-39.9) Tobacco user Tobacco use disorder Anxiety and depression ([facility]) Dermatitis Contact dermatitis and other eczema, due to unspecified cause Anxiety and depression ([facility])- Primary Obesity (BMI 30-39.9) Type 2 diabetes mellitus with complication, without long-term current use of insulin ([facility]) Medical non-compliance Tobacco user Tobacco use disorder Type 2 diabetes mellitus with hyperglycemia ([facility])- Primary Primary hypertension ([facility]) Unspecified essential hypertension Edema of extremities Edema Type 2 diabetes mellitus without complication, with long-term current use of insulin ([facility]) Vitamin D deficiency Tobacco user Tobacco use disorder Dizziness and giddiness Atrial fibrillation, unspecified type ([facility]) COPD mixed type ([facility]) Open wound of buttock, unspecified laterality, initial encounter- Primary Type 2 diabetes mellitus without complication, with long-term current use of insulin ([facility]) Obesity (BMI 30-39.9) Dizziness and giddiness Viral upper respiratory tract infection- Primary Acute upper respiratory infections of unspecified site Tobacco user Tobacco use disorder Open wound Open wound(s) (multiple) of unspecified site(s), without mention of complication Obesity (BMI 30-39.9) Type 2 diabetes mellitus without complication, with long-term current use of insulin ([facility]) Encounter for wellness examination- Primary Osteoporosis, unspecified osteoporosis type, unspecified pathological fracture presence ([facility]) Open wound of buttock, unspecified laterality, initial encounter Type 2 diabetes mellitus without complication, with long-term current use of insulin ([facility]) Obesity (BMI 30-39.9) Tobacco user Tobacco use disorder Anxiety and depression ([facility]) Type 2 diabetes mellitus with diabetic neuropathy, with long-term current use of insulin ([facility]) COPD mixed type ([facility]) Diabetic polyneuropathy associated with type 2 diabetes mellitus ([facility]) Gastroesophageal reflux disease, unspecified whether esophagitis present Mixed hyperlipidemia ([facility] Mixed hyperlipidemia Primary hypertension ([facility]) Unspecified essential hypertension Edema of extremities Edema Lung nodule, multiple Lymphadenopathy, generalized Vitamin D deficiency Oxygen dependent Dependence on supplemental oxygen Community acquired pneumonia, unspecified laterality COPD mixed type ([facility])- Primary SANTO (obstructive sleep apnea) Obstructive sleep apnea (adult) (pediatric) Lung nodule, multiple Community acquired pneumonia, unspecified laterality Primary hypertension ([facility]) Unspecified essential hypertension Atrial fibrillation, unspecified type ([facility]) Type 2 diabetes mellitus without complication, with long-term current use of insulin ([facility]) Tobacco user Tobacco use disorder Needs flu shot Need for prophylactic vaccination and inoculation against influenza Right wrist pain- Primary Pain in joint, forearm Obesity (BMI 30-39.9) 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 ([facility])- Primary Oxygen dependent- Primary Dependence on supplemental oxygen COPD mixed type ([facility]) Obesity (BMI 30-39.9) COPD with acute exacerbation ([facility]) documented in this encounter [facility]* Diagnosis Primary hypertension ([facility])- Primary Unspecified essential hypertension Type 2 diabetes mellitus with diabetic neuropathy, with long-term current use of insulin ([facility]) Gastroesophageal reflux disease, unspecified whether esophagitis present Vitamin D deficiency Type 2 diabetes mellitus with complication, without long-term current use of insulin ([facility]) Mixed hyperlipidemia ([facility]) Mixed hyperlipidemia Encounter for screening mammogram for malignant neoplasm of breast SANTO (obstructive sleep apnea) Obstructive sleep apnea (adult) (pediatric) COPD mixed type ([facility]) Anxiety and depression ([facility]) COVID Open wound Open wound(s) (multiple) of unspecified site(s), without mention of complication Morbid obesity with body mass index (BMI) of 40.0 to 49.9 ([facility]) COPD mixed type ([facility])- Primary Dysuria Atrial fibrillation, unspecified type ([facility]) Gastroesophageal reflux disease, unspecified whether esophagitis present Type 2 diabetes mellitus with complication, without long-term current use of insulin ([facility]) Obesity (BMI 30-39.9) Tobacco user Tobacco use disorder Anxiety and depression ([facility]) Dermatitis Contact dermatitis and other eczema, due to unspecified cause Anxiety and depression ([facility])- Primary Obesity (BMI 30-39.9) Type 2 diabetes mellitus with complication, without long-term current use of insulin ([facility]) Medical non-compliance Tobacco user Tobacco use disorder Type 2 diabetes mellitus with hyperglycemia ([facility])- Primary Primary hypertension ([facility]) Unspecified essential hypertension Edema of extremities Edema Type 2 diabetes mellitus without complication, with long-term current use of insulin ([facility]) Vitamin D deficiency Tobacco user Tobacco use disorder Dizziness and giddiness Atrial fibrillation, unspecified type ([facility]) COPD mixed type ([facility]) Open wound of buttock, unspecified laterality, initial encounter- Primary Type 2 diabetes mellitus without complication, with long-term current use of insulin ([facility]) Obesity (BMI 30-39.9) Dizziness and giddiness Viral upper respiratory tract infection- Primary Acute upper respiratory infections of unspecified site Tobacco user Tobacco use disorder Open wound Open wound(s) (multiple) of unspecified site(s), without mention of complication Obesity (BMI 30-39.9) Type 2 diabetes mellitus without complication, with long-term current use of insulin ([facility]) Encounter for wellness examination- Primary Osteoporosis, unspecified osteoporosis type, unspecified pathological fracture presence ([facility]) Open wound of buttock, unspecified laterality, initial encounter Type 2 diabetes mellitus without complication, with long-term current use of insulin ([facility]) Obesity (BMI 30-39.9) Tobacco user Tobacco use disorder Anxiety and depression ([facility]) Type 2 diabetes mellitus with diabetic neuropathy, with long-term current use of insulin ([facility]) COPD mixed type ([facility]) Diabetic polyneuropathy associated with type 2 diabetes mellitus ([facility]) Gastroesophageal reflux disease, unspecified whether esophagitis present Mixed hyperlipidemia ([facility] Mixed hyperlipidemia Primary hypertension ([facility]) Unspecified essential hypertension Edema of extremities Edema Lung nodule, multiple Lymphadenopathy, generalized Vitamin D deficiency Oxygen dependent Dependence on supplemental oxygen Community acquired pneumonia, unspecified laterality COPD mixed type ([facility])- Primary SANTO (obstructive sleep apnea) Obstructive sleep apnea (adult) (pediatric) Lung nodule, multiple Community acquired pneumonia, unspecified laterality Primary hypertension ([facility]) Unspecified essential hypertension Atrial fibrillation, unspecified type ([facility]) Type 2 diabetes mellitus without complication, with long-term current use of insulin ([facility]) Tobacco user Tobacco use disorder Needs flu shot Need for prophylactic vaccination and inoculation against influenza Right wrist pain- Primary Pain in joint, forearm Obesity (BMI 30-39.9) 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 ([facility])- Primary COPD with acute exacerbation ([facility])- Primary Oxygen dependent Dependence on supplemental oxygen COPD mixed type ([facility]) Obesity (BMI 30-39.9) COPD mixed type ([facility]) documented in this encounter [facility]* Diagnosis Primary hypertension ([facility])- Primary Unspecified essential hypertension Type 2 diabetes mellitus with diabetic neuropathy, with long-term current use of insulin ([facility]) Gastroesophageal reflux disease, unspecified whether esophagitis present Vitamin D deficiency Type 2 diabetes mellitus with complication, without long-term current use of insulin ([facility]) Mixed hyperlipidemia ([facility]) Mixed hyperlipidemia Encounter for screening mammogram for malignant neoplasm of breast SANTO (obstructive sleep apnea) Obstructive sleep apnea (adult) (pediatric) COPD mixed type ([facility]) Anxiety and depression ([facility]) COVID Open wound Open wound(s) (multiple) of unspecified site(s), without mention of complication Morbid obesity with body mass index (BMI) of 40.0 to 49.9 ([facility]) COPD mixed type ([facility])- Primary Dysuria Atrial fibrillation, unspecified type ([facility]) Gastroesophageal reflux disease, unspecified whether esophagitis present Type 2 diabetes mellitus with complication, without long-term current use of insulin ([facility]) Obesity (BMI 30-39.9) Tobacco user Tobacco use disorder Anxiety and depression ([facility]) Dermatitis Contact dermatitis and other eczema, due to unspecified cause Anxiety and depression ([facility])- Primary Obesity (BMI 30-39.9) Type 2 diabetes mellitus with complication, without long-term current use of insulin ([facility]) Medical non-compliance Tobacco user Tobacco use disorder Type 2 diabetes mellitus with hyperglycemia ([facility])- Primary Primary hypertension ([facility]) Unspecified essential hypertension Edema of extremities Edema Type 2 diabetes mellitus without complication, with long-term current use of insulin ([facility]) Vitamin D deficiency Tobacco user Tobacco use disorder Dizziness and giddiness Atrial fibrillation, unspecified type ([facility]) COPD mixed type ([facility]) Open wound of buttock, unspecified laterality, initial encounter- Primary Type 2 diabetes mellitus without complication, with long-term current use of insulin ([facility]) Obesity (BMI 30-39.9) Dizziness and giddiness Viral upper respiratory tract infection- Primary Acute upper respiratory infections of unspecified site Tobacco user Tobacco use disorder Open wound Open wound(s) (multiple) of unspecified site(s), without mention of complication Obesity (BMI 30-39.9) Type 2 diabetes mellitus without complication, with long-term current use of insulin ([facility]) Encounter for wellness examination- Primary Osteoporosis, unspecified osteoporosis type, unspecified pathological fracture presence ([facility]) Open wound of buttock, unspecified laterality, initial encounter Type 2 diabetes mellitus without complication, with long-term current use of insulin ([facility]) Obesity (BMI 30-39.9) Tobacco user Tobacco use disorder Anxiety and depression ([facility]) Type 2 diabetes mellitus with diabetic neuropathy, with long-term current use of insulin ([facility]) COPD mixed type ([facility]) Diabetic polyneuropathy associated with type 2 diabetes mellitus ([facility]) Gastroesophageal reflux disease, unspecified whether esophagitis present Mixed hyperlipidemia ([facility]) Mixed hyperlipidemia Primary hypertension ([facility]) Unspecified essential hypertension Edema of extremities Edema Lung nodule, multiple Lymphadenopathy, generalized Vitamin D deficiency Oxygen dependent Dependence on supplemental oxygen Community acquired pneumonia, unspecified laterality COPD mixed type ([facility])- Primary SANTO (obstructive sleep apnea) Obstructive sleep apnea (adult) (pediatric) Lung nodule, multiple Community acquired pneumonia, unspecified laterality Primary hypertension ([facility]) Unspecified essential hypertension Atrial fibrillation, unspecified type ([facility]) Type 2 diabetes mellitus without complication, with long-term current use of insulin ([facility]) Tobacco user Tobacco use disorder Needs flu shot Need for prophylactic vaccination and inoculation against influenza Right wrist pain- Primary Pain in joint, forearm Obesity (BMI 30-39.9) 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 ([facility])- Primary COPD with acute exacerbation ([facility])- Primary Oxygen dependent Dependence on supplemental oxygen COPD mixed type ([facility] Obesity (BMI 30-39.9) COVID- Primary Type 2 diabetes mellitus with diabetic polyneuropathy ([facility]) Type 2 diabetes mellitus with hyperglycemia (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 COPD mixed type ([facility] Paroxysmal atrial fibrillation ([facility] Atrial fibrillation Primary hypertension ([facility] Unspecified essential hypertension Tobacco user Tobacco use disorder documented in this encounter [facility] HealthcareEvaluation note* Diagnosis Primary hypertension ([facility])- Primary Unspecified essential hypertension Type 2 diabetes mellitus with diabetic neuropathy, with long-term current use of insulin ([facility]) Gastroesophageal reflux disease, unspecified whether esophagitis present Vitamin D deficiency Type 2 diabetes mellitus with complication, without long-term current use of insulin ([facility] Mixed hyperlipidemia ([facility]) Mixed hyperlipidemia Encounter for screening mammogram for malignant neoplasm of breast SANTO (obstructive sleep apnea) Obstructive sleep apnea (adult) (pediatric) COPD mixed type ([facility]) Anxiety and depression ([facility]) COVID Open wound Open wound(s) (multiple) of unspecified site(s), without mention of complication Morbid obesity with body mass index (BMI) of 40.0 to 49.9 ([facility]) COPD mixed type ([facility])- Primary Dysuria Atrial fibrillation, unspecified type ([facility]) Gastroesophageal reflux disease, unspecified whether esophagitis present Type 2 diabetes mellitus with complication, without long-term current use of insulin ([facility]) Obesity (BMI 30-39.9) Tobacco user Tobacco use disorder Anxiety and depression ([facility]) Dermatitis Contact dermatitis and other eczema, due to unspecified cause Anxiety and depression ([facility])- Primary Obesity (BMI 30-39.9) Type 2 diabetes mellitus with complication, without long-term current use of insulin ([facility]) Medical non-compliance Tobacco user Tobacco use disorder Type 2 diabetes mellitus with hyperglycemia ([facility])- Primary Primary hypertension ([facility]) Unspecified essential hypertension Edema of extremities Edema Type 2 diabetes mellitus without complication, with long-term current use of insulin ([facility]) Vitamin D deficiency Tobacco user Tobacco use disorder Dizziness and giddiness Atrial fibrillation, unspecified type ([facility]) COPD mixed type ([facility]) Open wound of buttock, unspecified laterality, initial encounter- Primary Type 2 diabetes mellitus without complication, with long-term current use of insulin ([facility]) Obesity (BMI 30-39.9) Dizziness and giddiness Viral upper respiratory tract infection- Primary Acute upper respiratory infections of unspecified site Tobacco user Tobacco use disorder Open wound Open wound(s) (multiple) of unspecified site(s), without mention of complication Obesity (BMI 30-39.9) Type 2 diabetes mellitus without complication, with long-term current use of insulin ([facility]) Encounter for wellness examination- Primary Osteoporosis, unspecified osteoporosis type, unspecified pathological fracture presence ([facility]) Open wound of buttock, unspecified laterality, initial encounter Type 2 diabetes mellitus without complication, with long-term current use of insulin ([facility]) Obesity (BMI 30-39.9) Tobacco user Tobacco use disorder Anxiety and depression ([facility]) Type 2 diabetes mellitus with diabetic neuropathy, with long-term current use of insulin ([facility]) COPD mixed type ([facility]) Diabetic polyneuropathy associated with type 2 diabetes mellitus ([facility]) Gastroesophageal reflux disease, unspecified whether esophagitis present Mixed hyperlipidemia ([facility]) Mixed hyperlipidemia Primary hypertension ([facility]) Unspecified essential hypertension Edema of extremities Edema Lung nodule, multiple Lymphadenopathy, generalized Vitamin D deficiency Oxygen dependent Dependence on supplemental oxygen Community acquired pneumonia, unspecified laterality COPD mixed type ([facility] Primary SANTO (obstructive sleep apnea) Obstructive sleep apnea (adult) (pediatric) Lung nodule, multiple Community acquired pneumonia, unspecified laterality Primary hypertension ([facility]) Unspecified essential hypertension Atrial fibrillation, unspecified type ([facility]) Type 2 diabetes mellitus without complication, with long-term current use of insulin ([facility]) Tobacco user Tobacco use disorder Needs flu shot Need for prophylactic vaccination and inoculation against influenza Right wrist pain- Primary Pain in joint, forearm Obesity (BMI 30-39.9) 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 ([facility] Primary COPD with acute exacerbation ([facility])- Primary Oxygen dependent Dependence on supplemental oxygen COPD mixed type ([facility] Obesity (BMI 30-39.9) COVID- Primary Type 2 diabetes mellitus with diabetic polyneuropathy ([facility]) Type 2 diabetes mellitus with hyperglycemia (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 COPD mixed type ([facility] Paroxysmal atrial fibrillation ([facility] Atrial fibrillation Primary hypertension ([facility] Unspecified essential hypertension Tobacco user Tobacco use disorder 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 ([facility])- Primary documented in this encounter [facility] HealthcareEvaluation note* Diagnosis Primary hypertension ([facility])- Primary Unspecified essential hypertension Type 2 diabetes mellitus with diabetic neuropathy, with long-term current use of insulin ([facility]) Gastroesophageal reflux disease, unspecified whether esophagitis present Vitamin D deficiency Type 2 diabetes mellitus with complication, without long-term current use of insulin ([facility]) Mixed hyperlipidemia ([facility]) Mixed hyperlipidemia Encounter for screening mammogram for malignant neoplasm of breast SANTO (obstructive sleep apnea) Obstructive sleep apnea (adult) (pediatric) COPD mixed type ([facility]) Anxiety and depression ([facility]) COVID Open wound Open wound(s) (multiple) of unspecified site(s), without mention of complication Morbid obesity with body mass index (BMI) of 40.0 to 49.9 ([facility]) COPD mixed type ([facility])- Primary Dysuria Atrial fibrillation, unspecified type ([facility]) Gastroesophageal reflux disease, unspecified whether esophagitis present Type 2 diabetes mellitus with complication, without long-term current use of insulin ([facility]) Obesity (BMI 30-39.9) Tobacco user Tobacco use disorder Anxiety and depression ([facility]) Dermatitis Contact dermatitis and other eczema, due to unspecified cause Anxiety and depression ([facility])- Primary Obesity (BMI 30-39.9) Type 2 diabetes mellitus with complication, without long-term current use of insulin ([facility]) Medical non-compliance Tobacco user Tobacco use disorder Type 2 diabetes mellitus with hyperglycemia ([facility])- Primary Primary hypertension ([facility]) Unspecified essential hypertension Edema of extremities Edema Type 2 diabetes mellitus without complication, with long-term current use of insulin ([facility]) Vitamin D deficiency Tobacco user Tobacco use disorder Dizziness and giddiness Atrial fibrillation, unspecified type ([facility]) COPD mixed type ([facility]) Open wound of buttock, unspecified laterality, initial encounter- Primary Type 2 diabetes mellitus without complication, with long-term current use of insulin ([facility]) Obesity (BMI 30-39.9) Dizziness and giddiness Viral upper respiratory tract infection- Primary Acute upper respiratory infections of unspecified site Tobacco user Tobacco use disorder Open wound Open wound(s) (multiple) of unspecified site(s), without mention of complication Obesity (BMI 30-39.9) Type 2 diabetes mellitus without complication, with long-term current use of insulin ([facility]) Encounter for wellness examination- Primary Osteoporosis, unspecified osteoporosis type, unspecified pathological fracture presence ([facility]) Open wound of buttock, unspecified laterality, initial encounter Type 2 diabetes mellitus without complication, with long-term current use of insulin ([facility]) Obesity (BMI 30-39.9) Tobacco user Tobacco use disorder Anxiety and depression ([facility]) Type 2 diabetes mellitus with diabetic neuropathy, with long-term current use of insulin ([facility]) COPD mixed type ([facility]) Diabetic polyneuropathy associated with type 2 diabetes mellitus ([facility]) Gastroesophageal reflux disease, unspecified whether esophagitis present Mixed hyperlipidemia ([facility]) Mixed hyperlipidemia Primary hypertension ([facility]) Unspecified essential hypertension Edema of extremities Edema Lung nodule, multiple Lymphadenopathy, generalized Vitamin D deficiency Oxygen dependent Dependence on supplemental oxygen Community acquired pneumonia, unspecified laterality COPD mixed type ([facility])- Primary SANTO (obstructive sleep apnea) Obstructive sleep apnea (adult) (pediatric) Lung nodule, multiple Community acquired pneumonia, unspecified laterality Primary hypertension ([facility]) Unspecified essential hypertension Atrial fibrillation, unspecified type ([facility]) Type 2 diabetes mellitus without complication, with long-term current use of insulin ([facility]) Tobacco user Tobacco use disorder Needs flu shot Need for prophylactic vaccination and inoculation against influenza Right wrist pain- Primary Pain in joint, forearm Obesity (BMI 30-39.9) 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 ([facility])- Primary COPD with acute exacerbation ([facility])- Primary Oxygen dependent Dependence on supplemental oxygen COPD mixed type ([facility]) Obesity (BMI 30-39.9) COVID- Primary Type 2 diabetes mellitus with diabetic polyneuropathy ([facility] Type 2 diabetes mellitus with hyperglycemia (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) retirement (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 ([facility] COPD mixed type ([facility] Paroxysmal atrial fibrillation ([facility] Atrial fibrillation Primary hypertension ([facility]) Unspecified essential hypertension Tobacco user Tobacco use disorder Type 2 diabetes mellitus without complication, with long-term current use of insulin ([facility])- Primary documented in this encounter [facility] HealthcareEvaluation note* Diagnosis Primary hypertension ([facility])- Primary Unspecified essential hypertension Type 2 diabetes mellitus with diabetic neuropathy, with long-term current use of insulin ([facility]) Gastroesophageal reflux disease, unspecified whether esophagitis present Vitamin D deficiency Type 2 diabetes mellitus with complication, without long-term current use of insulin ([facility] Mixed hyperlipidemia ([facility]) Mixed hyperlipidemia Encounter for screening mammogram for malignant neoplasm of breast SANTO (obstructive sleep apnea) Obstructive sleep apnea (adult) (pediatric) COPD mixed type ([facility]) Anxiety and depression ([facility]) COVID Open wound Open wound(s) (multiple) of unspecified site(s), without mention of complication Morbid obesity with body mass index (BMI) of 40.0 to 49.9 ([facility]) COPD mixed type ([facility] Primary Dysuria Atrial fibrillation, unspecified type ([facility]) Gastroesophageal reflux disease, unspecified whether esophagitis present Type 2 diabetes mellitus with complication, without long-term current use of insulin ([facility]) Obesity (BMI 30-39.9) Tobacco user Tobacco use disorder Anxiety and depression ([facility]) Dermatitis Contact dermatitis and other eczema, due to unspecified cause Anxiety and depression ([facility])- Primary Obesity (BMI 30-39.9) Type 2 diabetes mellitus with complication, without long-term current use of insulin ([facility]) Medical non-compliance Tobacco user Tobacco use disorder Type 2 diabetes mellitus with hyperglycemia ([facility])- Primary Primary hypertension ([facility]) Unspecified essential hypertension Edema of extremities Edema Type 2 diabetes mellitus without complication, with long-term current use of insulin ([facility]) Vitamin D deficiency Tobacco user Tobacco use disorder Dizziness and giddiness Atrial fibrillation, unspecified type ([facility]) COPD mixed type ([facility]) Open wound of buttock, unspecified laterality, initial encounter- Primary Type 2 diabetes mellitus without complication, with long-term current use of insulin ([facility]) Obesity (BMI 30-39.9) Dizziness and giddiness Viral upper respiratory tract infection- Primary Acute upper respiratory infections of unspecified site Tobacco user Tobacco use disorder Open wound Open wound(s) (multiple) of unspecified site(s), without mention of complication Obesity (BMI 30-39.9) Type 2 diabetes mellitus without complication, with long-term current use of insulin ([facility]) Encounter for wellness examination- Primary Osteoporosis, unspecified osteoporosis type, unspecified pathological fracture presence ([facility]) Open wound of buttock, unspecified laterality, initial encounter Type 2 diabetes mellitus without complication, with long-term current use of insulin ([facility]) Obesity (BMI 30-39.9) Tobacco user Tobacco use disorder Anxiety and depression ([facility]) Type 2 diabetes mellitus with diabetic neuropathy, with long-term current use of insulin ([facility]) COPD mixed type ([facility]) Diabetic polyneuropathy associated with type 2 diabetes mellitus ([facility] [facility]) Gastroesophageal reflux disease, unspecified whether esophagitis present Mixed hyperlipidemia ([facility] Mixed hyperlipidemia Primary hypertension ([facility]) Unspecified essential hypertension Edema of extremities Edema Lung nodule, multiple Lymphadenopathy, generalized Vitamin D deficiency Oxygen dependent Dependence on supplemental oxygen Community acquired pneumonia, unspecified laterality COPD mixed type ([facility] Primary SANTO (obstructive sleep apnea) Obstructive sleep apnea (adult) (pediatric) Lung nodule, multiple Community acquired pneumonia, unspecified laterality Primary hypertension ([facility]) Unspecified essential hypertension Atrial fibrillation, unspecified type ([facility]) Type 2 diabetes mellitus without complication, with long-term current use of insulin [facility] Tobacco user Tobacco use disorder Needs flu shot Need for prophylactic vaccination and inoculation against influenza Right wrist pain- Primary Pain in joint, forearm Obesity (BMI 30-39.9) 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 ([facility])- Primary COPD with acute exacerbation ([facility])- Primary Oxygen dependent Dependence on supplemental oxygen COPD mixed type ([facility] Obesity (BMI 30-39.9) COVID- Primary Type 2 diabetes mellitus with diabetic polyneuropathy ([facility] Type 2 diabetes mellitus with hyperglycemia (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) retirement (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 ([facility] COPD mixed type ([facility] Paroxysmal atrial fibrillation ([facility] Atrial fibrillation Primary hypertension ([facility]) Unspecified essential hypertension Tobacco user Tobacco use disorder Diarrhea, unspecified type- Primary Type 2 diabetes mellitus with hyperglycemia, with long-term current use of insulin ([facility]) documented in this encounter [facility] HealthcareEvaluation note* [facility] Primary hypertension ([facility])- Primary Unspecified essential hypertension Type 2 diabetes mellitus with diabetic neuropathy, with long-term current use of insulin ([facility]) Gastroesophageal reflux disease, unspecified whether esophagitis present Vitamin D deficiency Type 2 diabetes mellitus with complication, without long-term current use of insulin ([facility]) Mixed hyperlipidemia ([facility]) Mixed hyperlipidemia Encounter for screening mammogram for malignant neoplasm of breast SANTO (obstructive sleep apnea) Obstructive sleep apnea (adult) (pediatric) COPD mixed type ([facility]) Anxiety and depression ([facility]) COVID Open wound Open wound(s) (multiple) of unspecified site(s), without mention of complication Morbid obesity with body mass index (BMI) of 40.0 to 49.9 ([facility] COPD mixed type ([facility])- Primary Dysuria Atrial fibrillation, unspecified type ([facility]) Gastroesophageal reflux disease, unspecified whether esophagitis present Type 2 diabetes mellitus with complication, without long-term current use of insulin ([facility]) Obesity (BMI 30-39.9) Tobacco user Tobacco use disorder Anxiety and depression ([facility]) Dermatitis Contact dermatitis and other eczema, due to unspecified cause Anxiety and depression ([facility])- Primary Obesity (BMI 30-39.9) Type 2 diabetes mellitus with complication, without long-term current use of insulin ([facility]) Medical non-compliance Tobacco user Tobacco use disorder Type 2 diabetes mellitus with hyperglycemia ([facility])- Primary Primary hypertension ([facility]) Unspecified essential hypertension Edema of extremities Edema Type 2 diabetes mellitus without complication, with long-term current use of insulin ([facility]) Vitamin D deficiency Tobacco user Tobacco use disorder Dizziness and giddiness Atrial fibrillation, unspecified type ([facility]) COPD mixed type ([facility]) Open wound of buttock, unspecified laterality, initial encounter- Primary Type 2 diabetes mellitus without complication, with long-term current use of insulin ([facility]) Obesity (BMI 30-39.9) Dizziness and giddiness Viral upper respiratory tract infection- Primary Acute upper respiratory infections of unspecified site Tobacco user Tobacco use disorder Open wound Open wound(s) (multiple) of unspecified site(s), without mention of complication Obesity (BMI 30-39.9) Type 2 diabetes mellitus without complication, with long-term current use of insulin ([facility]) Encounter for wellness examination- Primary Osteoporosis, unspecified osteoporosis type, unspecified pathological fracture presence ([facility]) Open wound of buttock, unspecified laterality, initial encounter Type 2 diabetes mellitus without complication, with long-term current use of insulin ([facility]) Obesity (BMI 30-39.9) Tobacco user Tobacco use disorder Anxiety and depression ([facility]) Type 2 diabetes mellitus with diabetic neuropathy, with long-term current use of insulin ([facility]) COPD mixed type ([facility]) Diabetic polyneuropathy associated with type 2 diabetes mellitus ([facility]) Gastroesophageal reflux disease, unspecified whether esophagitis present Mixed hyperlipidemia ([facility] Mixed hyperlipidemia Primary hypertension ([facility]) Unspecified essential hypertension Edema of extremities Edema Lung nodule, multiple Lymphadenopathy, generalized Vitamin D deficiency Oxygen dependent Dependence on supplemental oxygen Community acquired pneumonia, unspecified laterality COPD mixed type ([facility])- Primary SANTO (obstructive sleep apnea) Obstructive sleep apnea (adult) (pediatric) Lung nodule, multiple Community acquired pneumonia, unspecified laterality Primary hypertension ([facility]) Unspecified essential hypertension Atrial fibrillation, unspecified type ([facility]) Type 2 diabetes mellitus without complication, with long-term current use of insulin ([facility]) Tobacco user Tobacco use disorder Needs flu shot Need for prophylactic vaccination and inoculation against influenza Right wrist pain- Primary Pain in joint, forearm Obesity (BMI 30-39.9) 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 ([facility])- Primary COPD with acute exacerbation ([facility])- Primary Oxygen dependent Dependence on supplemental oxygen COPD mixed type ([facility]) Obesity (BMI 30-39.9) COVID- Primary Type 2 diabetes mellitus with diabetic polyneuropathy ([facility] Type 2 diabetes mellitus with hyperglycemia (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 COPD mixed type ([facility] Paroxysmal atrial fibrillation ([facility] Atrial fibrillation Primary hypertension ([facility]) Unspecified essential hypertension Tobacco user Tobacco use disorder Diarrhea, unspecified type- Primary documented in this encounter [facility] HealthcareEvaluation note* Diagnosis Primary hypertension ([facility])- Primary Unspecified essential hypertension Type 2 diabetes mellitus with diabetic neuropathy, with long-term current use of insulin ([facility]) Gastroesophageal reflux disease, unspecified whether esophagitis present Vitamin D deficiency Type 2 diabetes mellitus with complication, without long-term current use of insulin ([facility]) Mixed hyperlipidemia ([facility]) Mixed hyperlipidemia Encounter for screening mammogram for malignant neoplasm of breast SANTO (obstructive sleep apnea) Obstructive sleep apnea (adult) (pediatric) COPD mixed type ([facility]) Anxiety and depression ([facility]) COVID Open wound Open wound(s) (multiple) of unspecified site(s), without mention of complication Morbid obesity with body mass index (BMI) of 40.0 to 49.9 ([facility]) COPD mixed type ([facility])- Primary Dysuria Atrial fibrillation, unspecified type ([facility]) Gastroesophageal reflux disease, unspecified whether esophagitis present Type 2 diabetes mellitus with complication, without long-term current use of insulin ([facility]) Obesity (BMI 30-39.9) Tobacco user Tobacco use disorder Anxiety and depression ([facility]) Dermatitis Contact dermatitis and other eczema, due to unspecified cause Anxiety and depression ([facility])- Primary Obesity (BMI 30-39.9) Type 2 diabetes mellitus with complication, without long-term current use of insulin ([facility]) Medical non-compliance Tobacco user Tobacco use disorder Type 2 diabetes mellitus with hyperglycemia ([facility])- Primary Primary hypertension ([facility]) Unspecified essential hypertension Edema of extremities Edema Type 2 diabetes mellitus without complication, with long-term current use of insulin ([facility]) Vitamin D deficiency Tobacco user Tobacco use disorder Dizziness and giddiness Atrial fibrillation, unspecified type ([facility]) COPD mixed type ([facility]) Open wound of buttock, unspecified laterality, initial encounter- Primary Type 2 diabetes mellitus without complication, with long-term current use of insulin ([facility]) Obesity (BMI 30-39.9) Dizziness and giddiness Viral upper respiratory tract infection- Primary Acute upper respiratory infections of unspecified site Tobacco user Tobacco use disorder Open wound Open wound(s) (multiple) of unspecified site(s), without mention of complication Obesity (BMI 30-39.9) Type 2 diabetes mellitus without complication, with long-term current use of insulin ([facility]) Encounter for wellness examination- Primary Osteoporosis, unspecified osteoporosis type, unspecified pathological fracture presence ([facility]) Open wound of buttock, unspecified laterality, initial encounter Type 2 diabetes mellitus without complication, with long-term current use of insulin ([facility]) Obesity (BMI 30-39.9) Tobacco user Tobacco use disorder Anxiety and depression ([facility]) Type 2 diabetes mellitus with diabetic neuropathy, with long-term current use of insulin ([facility]) COPD mixed type ([facility]) Diabetic polyneuropathy associated with type 2 diabetes mellitus ([facility]) Gastroesophageal reflux disease, unspecified whether esophagitis present Mixed hyperlipidemia ([facility]) Mixed hyperlipidemia Primary hypertension ([facility]) Unspecified essential hypertension Edema of extremities Edema Lung nodule, multiple Lymphadenopathy, generalized Vitamin D deficiency Oxygen dependent Dependence on supplemental oxygen Community acquired pneumonia, unspecified laterality COPD mixed type ([facility])- Primary SANTO (obstructive sleep apnea) Obstructive sleep apnea (adult) (pediatric) Lung nodule, multiple Community acquired pneumonia, unspecified laterality Primary hypertension ([facility]) Unspecified essential hypertension Atrial fibrillation, unspecified type ([facility]) Type 2 diabetes mellitus without complication, with long-term current use of insulin ([facility]) Tobacco user Tobacco use disorder Needs flu shot Need for prophylactic vaccination and inoculation against influenza Right wrist pain- Primary Pain in joint, forearm Obesity (BMI 30-39.9) 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 ([facility])- Primary COPD with acute exacerbation ([facility])- Primary Oxygen dependent Dependence on supplemental oxygen COPD mixed type ([facility]) Obesity (BMI 30-39.9) COVID- Primary Type 2 diabetes mellitus with diabetic polyneuropathy ([facility]) Type 2 diabetes mellitus with hyperglycemia (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 COPD mixed type ([facility] Paroxysmal atrial fibrillation ([facility] Atrial fibrillation Primary hypertension ([facility]) Unspecified essential hypertension Tobacco user Tobacco use disorder Type 2 diabetes mellitus with diabetic neuropathy, with long-term current use of insulin ([facility]) documented in this encounter [facility] HealthcareEvaluation note* Diagnosis Primary hypertension ([facility])- Primary Unspecified essential hypertension Type 2 diabetes mellitus with diabetic neuropathy, with long-term current use of insulin ([facility]) Gastroesophageal reflux disease, unspecified whether esophagitis present Vitamin D deficiency Type 2 diabetes mellitus with complication, without long-term current use of insulin ([facility] Mixed hyperlipidemia ([facility]) Mixed hyperlipidemia Encounter for screening mammogram for malignant neoplasm of breast SANTO (obstructive sleep apnea) Obstructive sleep apnea (adult) (pediatric) COPD mixed type ([facility]) Anxiety and depression ([facility]) COVID Open wound Open wound(s) (multiple) of unspecified site(s), without mention of complication Morbid obesity with body mass index (BMI) of 40.0 to 49.9 ([facility]) COPD mixed type ([facility])- Primary Dysuria Atrial fibrillation, unspecified type ([facility]) Gastroesophageal reflux disease, unspecified whether esophagitis present Type 2 diabetes mellitus with complication, without long-term current use of insulin ([facility]) Obesity (BMI 30-39.9) Tobacco user Tobacco use disorder Anxiety and depression ([facility]) Dermatitis Contact dermatitis and other eczema, due to unspecified cause Type 2 diabetes mellitus with hyperglycemia ([facility])- Primary Primary hypertension ([facility]) Unspecified essential hypertension Edema of extremities Edema Type 2 diabetes mellitus without complication, with long-term current use of insulin ([facility]) Vitamin D deficiency Tobacco user Tobacco use disorder Dizziness and giddiness Atrial fibrillation, unspecified type ([facility]) COPD mixed type ([facility]) Open wound of buttock, unspecified laterality, initial encounter- Primary Type 2 diabetes mellitus without complication, with long-term current use of insulin ([facility]) Obesity (BMI 30-39.9) Dizziness and giddiness Viral upper respiratory tract infection- Primary Acute upper respiratory infections of unspecified site Tobacco user Tobacco use disorder Open wound Open wound(s) (multiple) of unspecified site(s), without mention of complication Obesity (BMI 30-39.9) Type 2 diabetes mellitus without complication, with long-term current use of insulin ([facility]) Encounter for wellness examination- Primary Osteoporosis, unspecified osteoporosis type, unspecified pathological fracture presence ([facility]) Open wound of buttock, unspecified laterality, initial encounter Type 2 diabetes mellitus without complication, with long-term current use of insulin ([facility]) Obesity (BMI 30-39.9) Tobacco user Tobacco use disorder Anxiety and depression ([facility]) Type 2 diabetes mellitus with diabetic neuropathy, with long-term current use of insulin ([facility]) COPD mixed type ([facility]) Diabetic polyneuropathy associated with type 2 diabetes mellitus ([facility]) Gastroesophageal reflux disease, unspecified whether esophagitis present Mixed hyperlipidemia ([facility] Mixed hyperlipidemia Primary hypertension ([facility]) Unspecified essential hypertension Edema of extremities Edema Lung nodule, multiple Lymphadenopathy, generalized Vitamin D deficiency Oxygen dependent Dependence on supplemental oxygen Community acquired pneumonia, unspecified laterality COPD mixed type ([facility])- Primary SANTO (obstructive sleep apnea) Obstructive sleep apnea (adult) (pediatric) Lung nodule, multiple Community acquired pneumonia, unspecified laterality Primary hypertension ([facility]) Unspecified essential hypertension Atrial fibrillation, unspecified type ([facility]) Type 2 diabetes mellitus without complication, with long-term current use of insulin ([facility]) Tobacco user Tobacco use disorder Needs flu shot Need for prophylactic vaccination and inoculation against influenza Right wrist pain- Primary Pain in joint, forearm Obesity (BMI 30-39.9) 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 ([facility])- Primary COPD with acute exacerbation ([facility])- Primary Oxygen dependent Dependence on supplemental oxygen COPD mixed type ([facility]) Obesity (BMI 30-39.9) COVID- Primary Type 2 diabetes mellitus with diabetic polyneuropathy ([facility]) Type 2 diabetes mellitus with hyperglycemia (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) retirement (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 ([facility] COPD mixed type ([facility] Paroxysmal atrial fibrillation ([facility] Atrial fibrillation Primary hypertension ([facility]) Unspecified essential hypertension Tobacco user Tobacco use disorder JORDAN (generalized anxiety disorder) ([facility])- Primary Generalized anxiety disorder SANTO (obstructive sleep apnea) Obstructive sleep apnea (adult) (pediatric) Type 2 diabetes mellitus with diabetic polyneuropathy, with long-term current use of insulin ([facility]) COPD mixed type ([facility] Oxygen dependent Dependence on supplemental oxygen Paroxysmal atrial fibrillation ([facility] Atrial fibrillation Primary hypertension ([facility]) Unspecified essential hypertension Gastroesophageal reflux disease, unspecified whether esophagitis present Obesity (BMI 30-39.9) Type 2 diabetes mellitus without complication, with long-term current use of insulin ([facility]) Anxiety and depression (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) Medical non-compliance Mild episode of recurrent major depressive disorder (HCC) ([facility]) Cigarette nicotine dependence without complication Encounter for screening mammogram for malignant neoplasm of breast Diabetic polyneuropathy associated with type 2 diabetes mellitus ([facility] Mixed hyperlipidemia ([facility]) Mixed hyperlipidemia Edema of extremities Edema documented in this encounter [facility] HealthcareEvaluation note* Diagnosis Primary hypertension ([facility])- Primary Unspecified essential hypertension Type 2 diabetes mellitus with diabetic neuropathy, with long-term current use of insulin ([facility]) Gastroesophageal reflux disease, unspecified whether esophagitis present Vitamin D deficiency Type 2 diabetes mellitus with complication, without long-term current use of insulin ([facility]) Mixed hyperlipidemia ([facility]) Mixed hyperlipidemia Encounter for screening mammogram for malignant neoplasm of breast SANTO (obstructive sleep apnea) Obstructive sleep apnea (adult) (pediatric) COPD mixed type ([facility]) Anxiety and depression ([facility]) COVID Open wound Open wound(s) (multiple) of unspecified site(s), without mention of complication Morbid obesity with body mass index (BMI) of 40.0 to 49.9 ([facility]) COPD mixed type ([facility])- Primary Dysuria Atrial fibrillation, unspecified type ([facility]) Gastroesophageal reflux disease, unspecified whether esophagitis present Type 2 diabetes mellitus with complication, without long-term current use of insulin ([facility]) Obesity (BMI 30-39.9) Tobacco user Tobacco use disorder Anxiety and depression ([facility]) Dermatitis Contact dermatitis and other eczema, due to unspecified cause Type 2 diabetes mellitus with hyperglycemia ([facility])- Primary Primary hypertension ([facility]) Unspecified essential hypertension Edema of extremities Edema Type 2 diabetes mellitus without complication, with long-term current use of insulin ([facility]) Vitamin D deficiency Tobacco user Tobacco use disorder Dizziness and giddiness Atrial fibrillation, unspecified type ([facility]) COPD mixed type ([facility]) Open wound of buttock, unspecified laterality, initial encounter- Primary Type 2 diabetes mellitus without complication, with long-term current use of insulin ([facility]) Obesity (BMI 30-39.9) Dizziness and giddiness Viral upper respiratory tract infection- Primary Acute upper respiratory infections of unspecified site Tobacco user Tobacco use disorder Open wound Open wound(s) (multiple) of unspecified site(s), without mention of complication Obesity (BMI 30-39.9) Type 2 diabetes mellitus without complication, with long-term current use of insulin ([facility]) Encounter for wellness examination- Primary Osteoporosis, unspecified osteoporosis type, unspecified pathological fracture presence ([facility]) Open wound of buttock, unspecified laterality, initial encounter Type 2 diabetes mellitus without complication, with long-term current use of insulin ([facility]) Obesity (BMI 30-39.9) Tobacco user Tobacco use disorder Anxiety and depression ([facility]) Type 2 diabetes mellitus with diabetic neuropathy, with long-term current use of insulin ([facility]) COPD mixed type ([facility]) Diabetic polyneuropathy associated with type 2 diabetes mellitus ([facility]) Gastroesophageal reflux disease, unspecified whether esophagitis present Mixed hyperlipidemia ([facility]) Mixed hyperlipidemia Primary hypertension ([facility]) Unspecified essential hypertension Edema of extremities Edema Lung nodule, multiple Lymphadenopathy, generalized Vitamin D deficiency Oxygen dependent Dependence on supplemental oxygen Community acquired pneumonia, unspecified laterality COPD mixed type ([facility])- Primary SANTO (obstructive sleep apnea) Obstructive sleep apnea (adult) (pediatric) Lung nodule, multiple Community acquired pneumonia, unspecified laterality Primary hypertension ([facility]) Unspecified essential hypertension Atrial fibrillation, unspecified type ([facility]) Type 2 diabetes mellitus without complication, with long-term current use of insulin ([facility]) Tobacco user Tobacco use disorder Needs flu shot Need for prophylactic vaccination and inoculation against influenza Right wrist pain- Primary Pain in joint, forearm Obesity (BMI 30-39.9) 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 ([facility])- Primary COPD with acute exacerbation ([facility])- Primary Oxygen dependent Dependence on supplemental oxygen COPD mixed type ([facility]) Obesity (BMI 30-39.9) COVID- Primary Type 2 diabetes mellitus with diabetic polyneuropathy ([facility]) Type 2 diabetes mellitus with hyperglycemia (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) retirement (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 ([facility] COPD mixed type ([facility] Paroxysmal atrial fibrillation ([facility] Atrial fibrillation Primary hypertension ([facility]) Unspecified essential hypertension Tobacco user Tobacco use disorder JORDAN (generalized anxiety disorder) ([facility])- Primary Generalized anxiety disorder SANTO (obstructive sleep apnea) Obstructive sleep apnea (adult) (pediatric) Type 2 diabetes mellitus with diabetic polyneuropathy, with long-term current use of insulin ([facility]) COPD mixed type ([facility] Oxygen dependent Dependence on supplemental oxygen Paroxysmal atrial fibrillation ([facility] Atrial fibrillation Primary hypertension ([facility]) Unspecified essential hypertension Gastroesophageal reflux disease, unspecified whether esophagitis present Obesity (BMI 30-39.9) Type 2 diabetes mellitus without complication, with long-term current use of insulin ([facility]) Anxiety and depression (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) Medical non-compliance Mild episode of recurrent major depressive disorder (HCC) ([facility]) Cigarette nicotine dependence without complication Encounter for screening mammogram for malignant neoplasm of breast Diabetic polyneuropathy associated with type 2 diabetes mellitus ([facility] Mixed hyperlipidemia ([facility] Mixed hyperlipidemia Edema of extremities Edema documented in this encounter [facility] HealthcareEvaluation note* Diagnosis Primary hypertension ([facility])- Primary Unspecified essential hypertension Type 2 diabetes mellitus with diabetic neuropathy, with long-term current use of insulin ([facility]) Gastroesophageal reflux disease, unspecified whether esophagitis present Vitamin D deficiency Type 2 diabetes mellitus with complication, without long-term current use of insulin ([facility]) Mixed hyperlipidemia ([facility]) Mixed hyperlipidemia Encounter for screening mammogram for malignant neoplasm of breast SANTO (obstructive sleep apnea) Obstructive sleep apnea (adult) (pediatric) COPD mixed type ([facility]) Anxiety and depression ([facility]) COVID Open wound Open wound(s) (multiple) of unspecified site(s), without mention of complication Morbid obesity with body mass index (BMI) of 40.0 to 49.9 ([facility]) COPD mixed type ([facility])- Primary Dysuria Atrial fibrillation, unspecified type ([facility]) Gastroesophageal reflux disease, unspecified whether esophagitis present Type 2 diabetes mellitus with complication, without long-term current use of insulin ([facility]) Obesity (BMI 30-39.9) Tobacco user Tobacco use disorder Anxiety and depression ([facility]) Dermatitis Contact dermatitis and other eczema, due to unspecified cause Type 2 diabetes mellitus with hyperglycemia ([facility])- Primary Primary hypertension ([facility]) Unspecified essential hypertension Edema of extremities Edema Type 2 diabetes mellitus without complication, with long-term current use of insulin ([facility]) Vitamin D deficiency Tobacco user Tobacco use disorder Dizziness and giddiness Atrial fibrillation, unspecified type ([facility]) COPD mixed type ([facility]) Open wound of buttock, unspecified laterality, initial encounter- Primary Type 2 diabetes mellitus without complication, with long-term current use of insulin ([facility]) Obesity (BMI 30-39.9) Dizziness and giddiness Viral upper respiratory tract infection- Primary Acute upper respiratory infections of unspecified site Tobacco user Tobacco use disorder Open wound Open wound(s) (multiple) of unspecified site(s), without mention of complication Obesity (BMI 30-39.9) Type 2 diabetes mellitus without complication, with long-term current use of insulin ([facility]) Encounter for wellness examination- Primary Osteoporosis, unspecified osteoporosis type, unspecified pathological fracture presence ([facility]) Open wound of buttock, unspecified laterality, initial encounter Type 2 diabetes mellitus without complication, with long-term current use of insulin ([facility]) Obesity (BMI 30-39.9) Tobacco user Tobacco use disorder Anxiety and depression ([facility]) Type 2 diabetes mellitus with diabetic neuropathy, with long-term current use of insulin ([facility]) COPD mixed type ([facility]) Diabetic polyneuropathy associated with type 2 diabetes mellitus ([facility]) Gastroesophageal reflux disease, unspecified whether esophagitis present Mixed hyperlipidemia ([facility] Mixed hyperlipidemia Primary hypertension ([facility]) Unspecified essential hypertension Edema of extremities Edema Lung nodule, multiple Lymphadenopathy, generalized Vitamin D deficiency Oxygen dependent Dependence on supplemental oxygen Community acquired pneumonia, unspecified laterality COPD mixed type ([facility])- Primary SANTO (obstructive sleep apnea) Obstructive sleep apnea (adult) (pediatric) Lung nodule, multiple Community acquired pneumonia, unspecified laterality Primary hypertension ([facility]) Unspecified essential hypertension Atrial fibrillation, unspecified type ([facility]) Type 2 diabetes mellitus without complication, with long-term current use of insulin ([facility]) Tobacco user Tobacco use disorder Needs flu shot Need for prophylactic vaccination and inoculation against influenza Right wrist pain- Primary Pain in joint, forearm Obesity (BMI 30-39.9) 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 (CMS/HCC)- Primary COPD with acute exacerbation ([facility])- Primary Oxygen dependent Dependence on supplemental oxygen COPD mixed type (CMS/HCC) Obesity (BMI 30-39.9) COVID- Primary Type 2 diabetes mellitus with diabetic polyneuropathy ([facility] Type 2 diabetes mellitus with hyperglycemia (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) retirement (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 ([facility] COPD mixed type ([facility]) Paroxysmal atrial fibrillation ([facility] Atrial fibrillation Primary hypertension ([facility]) Unspecified essential hypertension Tobacco user Tobacco use disorder JORDAN (generalized anxiety disorder) ([facility])- Primary Generalized anxiety disorder SANTO (obstructive sleep apnea) Obstructive sleep apnea (adult) (pediatric) Type 2 diabetes mellitus with diabetic polyneuropathy, with long-term current use of insulin ([facility]) COPD mixed type ([facility] Oxygen dependent Dependence on supplemental oxygen Paroxysmal atrial fibrillation ([facility] Atrial fibrillation Primary hypertension ([facility]) Unspecified essential hypertension Gastroesophageal reflux disease, unspecified whether esophagitis present Obesity (BMI 30-39.9) Type 2 diabetes mellitus without complication, with long-term current use of insulin ([facility]) Anxiety and depression ([facility]) retirement (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 ([facility]) Medical non-compliance Mild episode of recurrent major depressive disorder (HCC) ([facility]) Cigarette nicotine dependence without complication Encounter for screening mammogram for malignant neoplasm of breast Diabetic polyneuropathy associated with type 2 diabetes mellitus ([facility]) Mixed hyperlipidemia ([facility]) Mixed hyperlipidemia Edema of extremities Edema Type 2 diabetes mellitus with hyperglycemia, with long-term current use of insulin ([facility])- Primary Type 2 diabetes mellitus with hyperglycemia, with long-term current use of insulin ([facility]) documented in this encounter [facility] HealthcareEvaluation note* Diagnosis Primary hypertension ([facility])- Primary Unspecified essential hypertension Type 2 diabetes mellitus with diabetic neuropathy, with long-term current use of insulin ([facility]) Gastroesophageal reflux disease, unspecified whether esophagitis present Vitamin D deficiency Type 2 diabetes mellitus with complication, without long-term current use of insulin ([facility]) Mixed hyperlipidemia ([facility]) Mixed hyperlipidemia Encounter for screening mammogram for malignant neoplasm of breast SANTO (obstructive sleep apnea) Obstructive sleep apnea (adult) (pediatric) COPD mixed type ([facility]) Anxiety and depression ([facility]) COVID Open wound Open wound(s) (multiple) of unspecified site(s), without mention of complication Morbid obesity with body mass index (BMI) of 40.0 to 49.9 ([facility]) COPD mixed type ([facility])- Primary Dysuria Atrial fibrillation, unspecified type ([facility]) Gastroesophageal reflux disease, unspecified whether esophagitis present Type 2 diabetes mellitus with complication, without long-term current use of insulin ([facility]) Obesity (BMI 30-39.9) Tobacco user Tobacco use disorder Anxiety and depression ([facility]) Dermatitis Contact dermatitis and other eczema, due to unspecified cause Type 2 diabetes mellitus with hyperglycemia ([facility])- Primary Primary hypertension ([facility]) Unspecified essential hypertension Edema of extremities Edema Type 2 diabetes mellitus without complication, with long-term current use of insulin ([facility]) Vitamin D deficiency Tobacco user Tobacco use disorder Dizziness and giddiness Atrial fibrillation, unspecified type ([facility]) COPD mixed type ([facility]) Open wound of buttock, unspecified laterality, initial encounter- Primary Type 2 diabetes mellitus without complication, with long-term current use of insulin ([facility]) Obesity (BMI 30-39.9) Dizziness and giddiness Viral upper respiratory tract infection- Primary Acute upper respiratory infections of unspecified site Tobacco user Tobacco use disorder Open wound Open wound(s) (multiple) of unspecified site(s), without mention of complication Obesity (BMI 30-39.9) Type 2 diabetes mellitus without complication, with long-term current use of insulin ([facility]) Encounter for wellness examination- Primary Osteoporosis, unspecified osteoporosis type, unspecified pathological fracture presence ([facility]) Open wound of buttock, unspecified laterality, initial encounter Type 2 diabetes mellitus without complication, with long-term current use of insulin ([facility]) Obesity (BMI 30-39.9) Tobacco user Tobacco use disorder Anxiety and depression ([facility]) Type 2 diabetes mellitus with diabetic neuropathy, with long-term current use of insulin ([facility]) COPD mixed type ([facility]) Diabetic polyneuropathy associated with type 2 diabetes mellitus ([facility]) Gastroesophageal reflux disease, unspecified whether esophagitis present Mixed hyperlipidemia ([facility]) Mixed hyperlipidemia Primary hypertension ([facility]) Unspecified essential hypertension Edema of extremities Edema Lung nodule, multiple Lymphadenopathy, generalized Vitamin D deficiency Oxygen dependent Dependence on supplemental oxygen Community acquired pneumonia, unspecified laterality COPD mixed type ([facility])- Primary SANTO (obstructive sleep apnea) Obstructive sleep apnea (adult) (pediatric) Lung nodule, multiple Community acquired pneumonia, unspecified laterality Primary hypertension ([facility]) Unspecified essential hypertension Atrial fibrillation, unspecified type ([facility]) Type 2 diabetes mellitus without complication, with long-term current use of insulin ([facility]) Tobacco user Tobacco use disorder Needs flu shot Need for prophylactic vaccination and inoculation against influenza Right wrist pain- Primary Pain in joint, forearm Obesity (BMI 30-39.9) 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 ([facility])- Primary COPD with acute exacerbation ([facility])- Primary Oxygen dependent Dependence on supplemental oxygen COPD mixed type ([facility]) Obesity (BMI 30-39.9) COVID- Primary Type 2 diabetes mellitus with diabetic polyneuropathy ([facility]) Type 2 diabetes mellitus with hyperglycemia ([facility]) 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 classified elsewhere ([facility]) retirement (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 ([facility] COPD mixed type ([facility] Paroxysmal atrial fibrillation ([facility] Atrial fibrillation Primary hypertension ([facility]) Unspecified essential hypertension Tobacco user Tobacco use disorder JORDAN (generalized anxiety disorder) ([facility])- Primary Generalized anxiety disorder SANTO (obstructive sleep apnea) Obstructive sleep apnea (adult) (pediatric) Type 2 diabetes mellitus with diabetic polyneuropathy, with long-term current use of insulin ([facility]) COPD mixed type ([facility] Oxygen dependent Dependence on supplemental oxygen Paroxysmal atrial fibrillation ([facility] Atrial fibrillation Primary hypertension ([facility]) Unspecified essential hypertension Gastroesophageal reflux disease, unspecified whether esophagitis present Obesity (BMI 30-39.9) Type 2 diabetes mellitus without complication, with long-term current use of insulin ([facility]) Anxiety and depression ([facility]) retirement (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 ([facility]) Medical non-compliance Mild episode of recurrent major depressive disorder (HCC) ([facility]) Cigarette nicotine dependence without complication Encounter for screening mammogram for malignant neoplasm of breast Diabetic polyneuropathy associated with type 2 diabetes mellitus ([facility]) Mixed hyperlipidemia ([facility]) Mixed hyperlipidemia Edema of extremities Edema Hypokalemia- Primary Hypopotassemia COPD mixed type ([facility]) Osteoporosis, unspecified osteoporosis type, unspecified pathological fracture presence ([facility]) Type 2 diabetes mellitus with hyperglycemia, with long-term current use of insulin ([facility]) documented in this encounter [facility] HealthcareEvaluation note* Diagnosis Primary hypertension ([facility])- Primary Unspecified essential hypertension Type 2 diabetes mellitus with diabetic neuropathy, with long-term current use of insulin ([facility]) Gastroesophageal reflux disease, unspecified whether esophagitis present Vitamin D deficiency Type 2 diabetes mellitus with complication, without long-term current use of insulin ([facility] Mixed hyperlipidemia ([facility]) Mixed hyperlipidemia Encounter for screening mammogram for malignant neoplasm of breast SANTO (obstructive sleep apnea) Obstructive sleep apnea (adult) (pediatric) COPD mixed type ([facility]) Anxiety and depression ([facility]) COVID Open wound Open wound(s) (multiple) of unspecified site(s), without mention of complication Morbid obesity with body mass index (BMI) of 40.0 to 49.9 ([facility]) COPD mixed type ([facility])- Primary Dysuria Atrial fibrillation, unspecified type ([facility]) Gastroesophageal reflux disease, unspecified whether esophagitis present Type 2 diabetes mellitus with complication, without long-term current use of insulin ([facility]) Obesity (BMI 30-39.9) Tobacco user Tobacco use disorder Anxiety and depression ([facility]) Dermatitis Contact dermatitis and other eczema, due to unspecified cause Type 2 diabetes mellitus with hyperglycemia ([facility])- Primary Primary hypertension ([facility]) Unspecified essential hypertension Edema of extremities Edema Type 2 diabetes mellitus without complication, with long-term current use of insulin Vitamin D deficiency Tobacco user Tobacco use disorder Dizziness and giddiness Atrial fibrillation, unspecified type (CMS/HCC) COPD mixed type ([facility]) Open wound of buttock, unspecified laterality, initial [...] unspecified osteoporosis type, unspecified pathological fracture presence ([facility]) Open wound of buttock, unspecified laterality, initial encounter Type 2 diabetes mellitus without complication, with long-term current use of insulin Obesity (BMI 30-39.9) Tobacco user Tobacco use disorder Anxiety and depression ([facility]) Type 2 diabetes mellitus with diabetic neuropathy, with long-term current use of insulin ([facility]) COPD mixed type ([facility]) Diabetic polyneuropathy associated with type 2 diabetes mellitus ([facility]) Gastroesophageal reflux disease, unspecified whether esophagitis present Mixed hyperlipidemia ([facility]) Mixed hyperlipidemia Primary hypertension ([facility]) Unspecified essential hypertension Edema of extremities Edema Lung nodule, multiple Lymphadenopathy, generalized Vitamin D deficiency Oxygen dependent Dependence on supplemental oxygen Community acquired pneumonia, unspecified laterality COPD mixed type ([facility])- Primary SANTO (obstructive sleep apnea) Obstructive sleep apnea (adult) (pediatric) Lung nodule, multiple Community acquired pneumonia, unspecified laterality Primary hypertension ([facility]) Unspecified essential hypertension Atrial fibrillation, unspecified type ([facility]) Type 2 diabetes mellitus without complication, with long-term current use of insulin Tobacco user Tobacco use disorder Needs flu shot Need for prophylactic vaccination and inoculation against influenza Right wrist pain- Primary Pain in joint, forearm Obesity (BMI 30-39.9) 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 ([facility])- Primary COPD with acute exacerbation ([facility])- Primary Oxygen dependent Dependence on supplemental oxygen COPD mixed type ([facility] Obesity (BMI 30-39.9) COVID- Primary Type 2 diabetes mellitus with diabetic polyneuropathy ([facility]) Type 2 diabetes mellitus with hyperglycemia (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) retirement (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 ([facility] COPD mixed type ([facility] Paroxysmal atrial fibrillation ([facility] Atrial fibrillation Primary hypertension ([facility]) Unspecified essential hypertension Tobacco user Tobacco use disorder JORDAN (generalized anxiety disorder) ([facility])- Primary Generalized anxiety disorder SANTO (obstructive sleep apnea) Obstructive sleep apnea (adult) (pediatric) Type 2 diabetes mellitus with diabetic polyneuropathy, with long-term current use of insulin (CMS/HCC) COPD mixed type (CMS/HCC) Oxygen dependent Dependence on supplemental oxygen Paroxysmal atrial fibrillation (CMS/HCC) Atrial fibrillation Primary hypertension (CMS/HCC) Unspecified essential hypertension Gastroesophageal reflux disease, unspecified whether esophagitis present Obesity (BMI 30-39.9) Type 2 diabetes mellitus without complication, with long-term current use of insulin Anxiety and depression ([facility]) 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) Medical non-compliance Mild episode of recurrent major depressive disorder (HCC) ([facility]) Cigarette nicotine dependence without complication Encounter for screening mammogram for malignant neoplasm of breast Diabetic polyneuropathy associated with type 2 diabetes mellitus ([facility] Mixed hyperlipidemia ([facility]) Mixed hyperlipidemia Edema of extremities Edema COPD mixed type ([facility]) documented in this encounter [facility] HealthcareEvaluation note* Diagnosis Primary hypertension ([facility])- Primary Unspecified essential hypertension Type 2 diabetes mellitus with diabetic neuropathy, with long-term current use of insulin ([facility]) Gastroesophageal reflux disease, unspecified whether esophagitis present Vitamin D deficiency Type 2 diabetes mellitus with complication, without long-term current use of insulin ([facility] Mixed hyperlipidemia ([facility]) Mixed hyperlipidemia Encounter for screening mammogram for malignant neoplasm of breast SANTO (obstructive sleep apnea) Obstructive sleep apnea (adult) (pediatric) COPD mixed type ([facility]) Anxiety and depression ([facility]) COVID Open wound Open wound(s) (multiple) of unspecified site(s), without mention of complication Morbid obesity with body mass index (BMI) of 40.0 to 49.9 ([facility]) COPD mixed type (CMS/HCC)- Primary Dysuria Atrial fibrillation, unspecified type ([facility]) Gastroesophageal reflux disease, unspecified whether esophagitis present Type 2 diabetes mellitus with complication, without long-term current use of insulin ([facility]) Obesity (BMI 30-39.9) Tobacco user Tobacco use disorder Anxiety and depression ([facility]) Dermatitis Contact dermatitis and other eczema, due to unspecified cause Type 2 diabetes mellitus with hyperglycemia ([facility])- Primary Primary hypertension ([facility]) Unspecified essential hypertension Edema of extremities Edema [...] unspecified osteoporosis type, unspecified pathological fracture presence ([facility]) Open wound of buttock, unspecified laterality, initial encounter Type 2 diabetes mellitus without complication, with long-term current use of insulin Obesity (BMI 30-39.9) Tobacco user Tobacco use disorder Anxiety and depression ([facility]) Type 2 diabetes mellitus with diabetic neuropathy, with long-term current use of insulin ([facility]) COPD mixed type ([facility]) Diabetic polyneuropathy associated with type 2 diabetes mellitus ([facility]) Gastroesophageal reflux disease, unspecified whether esophagitis present Mixed hyperlipidemia ([facility]) Mixed hyperlipidemia Primary hypertension ([facility]) Unspecified essential hypertension Edema of extremities Edema Lung nodule, multiple Lymphadenopathy, generalized Vitamin D deficiency Oxygen dependent Dependence on supplemental oxygen Community acquired pneumonia, unspecified laterality COPD mixed type ([facility])- Primary SANTO (obstructive sleep apnea) Obstructive sleep apnea (adult) (pediatric) Lung nodule, multiple Community acquired pneumonia, unspecified laterality Primary hypertension ([facility]) Unspecified essential hypertension Atrial fibrillation, unspecified type ([facility]) Type 2 diabetes mellitus without complication, with long-term current use of insulin Tobacco user Tobacco use disorder Needs flu shot Need for prophylactic vaccination and inoculation against influenza Right wrist pain- Primary Pain in joint, forearm Obesity (BMI 30-39.9) 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 ([facility])- Primary COPD with acute exacerbation ([facility])- Primary Oxygen dependent Dependence on supplemental oxygen COPD mixed type ([facility]) Obesity (BMI 30-39.9) COVID- Primary Type 2 diabetes mellitus with diabetic polyneuropathy ([facility]) Type 2 diabetes mellitus with hyperglycemia (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 COPD mixed type ([facility] Paroxysmal atrial fibrillation ([facility] Atrial fibrillation Primary hypertension ([facility]) Unspecified essential hypertension Tobacco user Tobacco use disorder JORDAN (generalized anxiety disorder) ([facility])- Primary Generalized anxiety disorder SANTO (obstructive sleep apnea) Obstructive sleep apnea (adult) (pediatric) Type 2 diabetes mellitus with diabetic polyneuropathy, with long-term current use of insulin ([facility]) COPD mixed type ([facility] Oxygen dependent Dependence on supplemental oxygen Paroxysmal atrial fibrillation ([facility] Atrial fibrillation Primary hypertension ([facility]) Unspecified essential hypertension Gastroesophageal reflux disease, unspecified whether esophagitis present Obesity (BMI 30-39.9) Type 2 diabetes mellitus without complication, with long-term current use of insulin Anxiety and depression ([facility]) retirement (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 ([facility]) Medical non-compliance Mild episode of recurrent major depressive disorder (HCC) ([facility]) Cigarette nicotine dependence without complication Encounter for screening mammogram for malignant neoplasm of breast Diabetic polyneuropathy associated with type 2 diabetes mellitus ([facility]) Mixed hyperlipidemia ([facility]) Mixed hyperlipidemia Edema of extremities Edema JORDAN (generalized anxiety disorder) ([facility]) Generalized anxiety disorder Mild episode of recurrent major depressive disorder (HCC) ([facility]) documented in this encounter [facility] HealthcareEvaluation note* Diagnosis Primary hypertension ([facility])- Primary Unspecified essential hypertension Type 2 diabetes mellitus with diabetic neuropathy, with long-term current use of insulin ([facility]) Gastroesophageal reflux disease, unspecified whether esophagitis present Vitamin D deficiency Type 2 diabetes mellitus with complication, without long-term current use of insulin ([facility] Mixed hyperlipidemia ([facility]) Mixed hyperlipidemia Encounter for screening mammogram for malignant neoplasm of breast SANTO (obstructive sleep apnea) Obstructive sleep apnea (adult) (pediatric) COPD mixed type ([facility]) Anxiety and depression ([facility]) COVID Open wound Open wound(s) (multiple) of unspecified site(s), without mention of complication Morbid obesity with body mass index (BMI) of 40.0 to 49.9 ([facility]) COPD mixed type ([facility])- Primary Dysuria Atrial fibrillation, unspecified type ([facility]) Gastroesophageal reflux disease, unspecified whether esophagitis present Type 2 diabetes mellitus with complication, without long-term current use of insulin ([facility]) Obesity (BMI 30-39.9) Tobacco user Tobacco use disorder Anxiety and depression ([facility]) Dermatitis Contact dermatitis and other eczema, due to unspecified cause Type 2 diabetes mellitus with hyperglycemia ([facility])- Primary Primary hypertension ([facility] [facility] Unspecified essential hypertension Edema of extremities Edema Type 2 diabetes mellitus without complication, with long-term current use of insulin Vitamin D deficiency Tobacco user Tobacco use disorder Dizziness and giddiness Atrial fibrillation, unspecified type ([facility]) COPD mixed type ([facility]) Open wound of buttock, unspecified laterality, initial [...] unspecified osteoporosis type, unspecified pathological fracture presence ([facility]) Open wound of buttock, unspecified laterality, initial encounter Type 2 diabetes mellitus without complication, with long-term current use of insulin Obesity (BMI 30-39.9) Tobacco user Tobacco use disorder Anxiety and depression ([facility]) Type 2 diabetes mellitus with diabetic neuropathy, with long-term current use of insulin ([facility]) COPD mixed type ([facility]) Diabetic polyneuropathy associated with type 2 diabetes mellitus ([facility]) Gastroesophageal reflux disease, unspecified whether esophagitis present Mixed hyperlipidemia ([facility] Mixed hyperlipidemia Primary hypertension ([facility]) Unspecified essential hypertension Edema of extremities Edema Lung nodule, multiple Lymphadenopathy, generalized Vitamin D deficiency Oxygen dependent Dependence on supplemental oxygen Community acquired pneumonia, unspecified laterality COPD mixed type ([facility])- Primary SANTO (obstructive sleep apnea) Obstructive sleep apnea (adult) (pediatric) Lung nodule, multiple Community acquired pneumonia, unspecified laterality Primary hypertension ([facility]) Unspecified essential hypertension Atrial fibrillation, unspecified type ([facility]) Type 2 diabetes mellitus without complication, with long-term current use of insulin Tobacco user Tobacco use disorder Needs flu shot Need for prophylactic vaccination and inoculation against influenza Right wrist pain- Primary Pain in joint, forearm Obesity (BMI 30-39.9) 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 ([facility])- Primary COPD with acute exacerbation ([facility])- Primary Oxygen dependent Dependence on supplemental oxygen COPD mixed type ([facility] Obesity (BMI 30-39.9) COVID- Primary Type 2 diabetes mellitus with diabetic polyneuropathy ([facility]) Type 2 diabetes mellitus with hyperglycemia (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 COPD mixed type ([facility]) Paroxysmal atrial fibrillation ([facility] Atrial fibrillation Primary hypertension ([facility]) Unspecified essential hypertension Tobacco user Tobacco use disorder JORDAN (generalized anxiety disorder) ([facility])- Primary Generalized anxiety disorder SANTO (obstructive sleep apnea) Obstructive sleep apnea (adult) (pediatric) Type 2 diabetes mellitus with diabetic polyneuropathy, with long-term current use of insulin ([facility]) COPD mixed type ([facility] Oxygen dependent Dependence on supplemental oxygen Paroxysmal atrial fibrillation ([facility] Atrial fibrillation Primary hypertension ([facility]) Unspecified essential hypertension Gastroesophageal reflux disease, unspecified whether esophagitis present Obesity (BMI 30-39.9) Type 2 diabetes mellitus without complication, with long-term current use of insulin Anxiety and depression ([facility]) retirement (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 ([facility]) Medical non-compliance Mild episode of recurrent major depressive disorder (HCC) ([facility]) Cigarette nicotine dependence without complication Encounter for screening mammogram for malignant neoplasm of breast Diabetic polyneuropathy associated with type 2 diabetes mellitus ([facility] Mixed hyperlipidemia ([facility] Mixed hyperlipidemia Edema of extremities Edema Abscess of left groin- Primary documented in this encounter [facility] HealthcareEvaluation note* Diagnosis Primary hypertension ([facility])- Primary Unspecified essential hypertension Type 2 diabetes mellitus with diabetic neuropathy, with long-term current use of insulin ([facility]) Gastroesophageal reflux disease, unspecified whether esophagitis present Vitamin D deficiency Type 2 diabetes mellitus with complication, without long-term current use of insulin ([facility]) Mixed hyperlipidemia ([facility]) Mixed hyperlipidemia Encounter for screening mammogram for malignant neoplasm of breast SANTO (obstructive sleep apnea) Obstructive sleep apnea (adult) (pediatric) COPD mixed type ([facility]) Anxiety and depression ([facility]) COVID Open wound Open wound(s) (multiple) of unspecified site(s), without mention of complication Morbid obesity with body mass index (BMI) of 40.0 to 49.9 ([facility]) COPD mixed type ([facility])- Primary Dysuria Atrial fibrillation, unspecified type ([facility]) Gastroesophageal reflux disease, unspecified whether esophagitis present Type 2 diabetes mellitus with complication, without long-term current use of insulin ([facility]) Obesity (BMI 30-39.9) Tobacco user Tobacco use disorder Anxiety and depression ([facility]) Dermatitis Contact dermatitis and other eczema, due to unspecified cause Type 2 diabetes mellitus with hyperglycemia ([facility])- Primary Primary hypertension ([facility]) Unspecified essential hypertension Edema of extremities Edema Type 2 diabetes mellitus without complication, with long-term current use of insulin Vitamin D deficiency Tobacco user Tobacco use disorder Dizziness and giddiness Atrial fibrillation, unspecified type ([facility]) COPD mixed type ([facility]) Open wound of buttock, unspecified laterality, initial [...] unspecified osteoporosis type, unspecified pathological fracture presence ([facility]) Open wound of buttock, unspecified laterality, initial encounter Type 2 diabetes mellitus without complication, with long-term current use of insulin Obesity (BMI 30-39.9) Tobacco user Tobacco use disorder Anxiety and depression ([facility]) Type 2 diabetes mellitus with diabetic neuropathy, with long-term current use of insulin ([facility]) COPD mixed type ([facility]) Diabetic polyneuropathy associated with type 2 diabetes mellitus ([facility]) Gastroesophageal reflux disease, unspecified whether esophagitis present Mixed hyperlipidemia ([facility]) Mixed hyperlipidemia Primary hypertension ([facility]) Unspecified essential hypertension Edema of extremities Edema Lung nodule, multiple Lymphadenopathy, generalized Vitamin D deficiency Oxygen dependent Dependence on supplemental oxygen Community acquired pneumonia, unspecified laterality COPD mixed type ([facility])- Primary SANTO (obstructive sleep apnea) Obstructive sleep apnea (adult) (pediatric) Lung nodule, multiple Community acquired pneumonia, unspecified laterality Primary hypertension ([facility]) Unspecified essential hypertension Atrial fibrillation, unspecified type ([facility]) Type 2 diabetes mellitus without complication, with long-term current use of insulin Tobacco user Tobacco use disorder Needs flu shot Need for prophylactic vaccination and inoculation against influenza Right wrist pain- Primary Pain in joint, forearm Obesity (BMI 30-39.9) 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 ([facility])- Primary COPD with acute exacerbation ([facility])- Primary Oxygen dependent Dependence on supplemental oxygen COPD mixed type ([facility] Obesity (BMI 30-39.9) COVID- Primary Type 2 diabetes mellitus with diabetic polyneuropathy ([facility]) Type 2 diabetes mellitus with hyperglycemia (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) retirement (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 ([facility] COPD mixed type ([facility] Paroxysmal atrial fibrillation ([facility] Atrial fibrillation Primary hypertension ([facility]) Unspecified essential hypertension Tobacco user Tobacco use disorder JORDAN (generalized anxiety disorder) ([facility])- Primary Generalized anxiety disorder SANTO (obstructive sleep apnea) Obstructive sleep apnea (adult) (pediatric) Type 2 diabetes mellitus with diabetic polyneuropathy, with long-term current use of insulin ([facility]) COPD mixed type ([facility] Oxygen dependent Dependence on supplemental oxygen Paroxysmal atrial fibrillation ([facility] Atrial fibrillation Primary hypertension ([facility]) Unspecified essential hypertension Gastroesophageal reflux disease, unspecified whether esophagitis present Obesity (BMI 30-39.9) Type 2 diabetes mellitus without complication, with long-term current use of insulin Anxiety and depression (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) Medical non-compliance Mild episode of recurrent major depressive disorder (HCC) ([facility]) Cigarette nicotine dependence without complication Encounter for screening mammogram for malignant neoplasm of breast Diabetic polyneuropathy associated with type 2 diabetes mellitus ([facility] Mixed hyperlipidemia ([facility]) Mixed hyperlipidemia Edema of extremities Edema Abscess of left groin documented in this encounter [facility] HealthcareEvaluation note* Diagnosis Primary hypertension ([facility])- Primary Unspecified essential hypertension Type 2 diabetes mellitus with diabetic neuropathy, with long-term current use of insulin ([facility]) Gastroesophageal reflux disease, unspecified whether esophagitis present Vitamin D deficiency Type 2 diabetes mellitus with complication, without long-term current use of insulin ([facility]) Mixed hyperlipidemia ([facility]) Mixed hyperlipidemia Encounter for screening mammogram for malignant neoplasm of breast SANTO (obstructive sleep apnea) Obstructive sleep apnea (adult) (pediatric) COPD mixed type ([facility]) Anxiety and depression ([facility]) COVID Open wound Open wound(s) (multiple) of unspecified site(s), without mention of complication Morbid obesity with body mass index (BMI) of 40.0 to 49.9 ([facility]) COPD mixed type ([facility])- Primary Dysuria Atrial fibrillation, unspecified type ([facility]) Gastroesophageal reflux disease, unspecified whether esophagitis present Type 2 diabetes mellitus with complication, without long-term current use of insulin ([facility]) Obesity (BMI 30-39.9) Tobacco user Tobacco use disorder Anxiety and depression ([facility]) Dermatitis Contact dermatitis and other eczema, due to unspecified cause Type 2 diabetes mellitus with hyperglycemia ([facility])- Primary Primary hypertension ([facility]) Unspecified essential hypertension Edema of extremities Edema Type 2 diabetes mellitus without complication, with long-term current use of insulin Vitamin D deficiency Tobacco user Tobacco use disorder Dizziness and giddiness Atrial fibrillation, unspecified type ([facility]) COPD mixed type ([facility]) Open wound of buttock, unspecified laterality, initial [...] unspecified osteoporosis type, unspecified pathological fracture presence ([facility]) Open wound of buttock, unspecified laterality, initial encounter Type 2 diabetes mellitus without complication, with long-term current use of insulin Obesity (BMI 30-39.9) Tobacco user Tobacco use disorder Anxiety and depression ([facility]) Type 2 diabetes mellitus with diabetic neuropathy, with long-term current use of insulin ([facility]) COPD mixed type ([facility]) Diabetic polyneuropathy associated with type 2 diabetes mellitus ([facility]) Gastroesophageal reflux disease, unspecified whether esophagitis present Mixed hyperlipidemia ([facility]) Mixed hyperlipidemia Primary hypertension ([facility]) Unspecified essential hypertension Edema of extremities Edema Lung nodule, multiple Lymphadenopathy, generalized Vitamin D deficiency Oxygen dependent Dependence on supplemental oxygen Community acquired pneumonia, unspecified laterality COPD mixed type ([facility])- Primary SANTO (obstructive sleep apnea) Obstructive sleep apnea (adult) (pediatric) Lung nodule, multiple Community acquired pneumonia, unspecified laterality Primary hypertension ([facility]) Unspecified essential hypertension Atrial fibrillation, unspecified type ([facility]) Type 2 diabetes mellitus without complication, with long-term current use of insulin Tobacco user Tobacco use disorder Needs flu shot Need for prophylactic vaccination and inoculation against influenza Right wrist pain- Primary Pain in joint, forearm Obesity (BMI 30-39.9) 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 ([facility])- Primary COPD with acute exacerbation ([facility])- Primary Oxygen dependent Dependence on supplemental oxygen COPD mixed type ([facility]) Obesity (BMI 30-39.9) COVID- Primary Type 2 diabetes mellitus with diabetic polyneuropathy ([facility]) Type 2 diabetes mellitus with hyperglycemia (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) retirement (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 ([facility] COPD mixed type ([facility] Paroxysmal atrial fibrillation ([facility] Atrial fibrillation Primary hypertension ([facility]) Unspecified essential hypertension Tobacco user Tobacco use disorder JORDAN (generalized anxiety disorder) ([facility])- Primary Generalized anxiety disorder SANTO (obstructive sleep apnea) Obstructive sleep apnea (adult) (pediatric) Type 2 diabetes mellitus with diabetic polyneuropathy, with long-term current use of insulin ([facility]) COPD mixed type ([facility] Oxygen dependent Dependence on supplemental oxygen Paroxysmal atrial fibrillation ([facility] Atrial fibrillation Primary hypertension ([facility]) Unspecified essential hypertension Gastroesophageal reflux disease, unspecified whether esophagitis present Obesity (BMI 30-39.9) Type 2 diabetes mellitus without complication, with long-term current use of insulin Anxiety and depression ([facility]) retirement (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 ([facility]) Medical non-compliance Mild episode of recurrent major depressive disorder (HCC) ([facility]) Cigarette nicotine dependence without complication Encounter for screening mammogram for malignant neoplasm of breast Diabetic polyneuropathy associated with type 2 diabetes mellitus ([facility]) Mixed hyperlipidemia (CMS/HCC) Mixed hyperlipidemia Edema of extremities Edema Abscess of left groin- Primary Primary hypertension ([facility]) Unspecified essential hypertension Type 2 diabetes mellitus without complication, with long-term current use of insulin Cigarette nicotine dependence without complication Encounter for screening mammogram for malignant neoplasm of breast Gill rash of groin Mild episode of recurrent major depressive disorder (HCC) ([facility]) documented in this encounter [facility] HealthcareEvaluation note* Diagnosis Primary hypertension ([facility])- Primary Unspecified essential hypertension Type 2 diabetes mellitus with diabetic neuropathy, with long-term current use of insulin ([facility]) Gastroesophageal reflux disease, unspecified whether esophagitis present Vitamin D deficiency Type 2 diabetes mellitus with complication, without long-term current use of insulin ([facility] Mixed hyperlipidemia ([facility]) Mixed hyperlipidemia Encounter for screening mammogram for malignant neoplasm of breast SANTO (obstructive sleep apnea) Obstructive sleep apnea (adult) (pediatric) COPD mixed type ([facility]) Anxiety and depression ([facility]) COVID Open wound Open wound(s) (multiple) of unspecified site(s), without mention of complication Morbid obesity with body mass index (BMI) of 40.0 to 49.9 ([facility]) COPD mixed type ([facility])- Primary Dysuria Atrial fibrillation, unspecified type ([facility]) Gastroesophageal reflux disease, unspecified whether esophagitis present Type 2 diabetes mellitus with complication, without long-term current use of insulin ([facility]) Obesity (BMI 30-39.9) Tobacco user Tobacco use disorder Anxiety and depression ([facility] [facility] Dermatitis Contact dermatitis and other eczema, due to unspecified cause Type 2 diabetes mellitus with hyperglycemia ([facility])- Primary Primary hypertension ([facility]) Unspecified essential hypertension Edema of extremities Edema Type 2 diabetes mellitus without complication, with long-term current use of insulin Vitamin D deficiency Tobacco user Tobacco use disorder Dizziness and giddiness Atrial fibrillation, unspecified type ([facility]) COPD mixed type ([facility]) Open wound of buttock, unspecified laterality, initial [...] unspecified osteoporosis type, unspecified pathological fracture presence ([facility]) Open wound of buttock, unspecified laterality, initial encounter Type 2 diabetes mellitus without complication, with long-term current use of insulin Obesity (BMI 30-39.9) Tobacco user Tobacco use disorder Anxiety and depression ([facility]) Type 2 diabetes mellitus with diabetic neuropathy, with long-term current use of insulin ([facility]) COPD mixed type ([facility]) Diabetic polyneuropathy associated with type 2 diabetes mellitus ([facility]) Gastroesophageal reflux disease, unspecified whether esophagitis present Mixed hyperlipidemia ([facility] Mixed hyperlipidemia Primary hypertension ([facility]) Unspecified essential hypertension Edema of extremities Edema Lung nodule, multiple Lymphadenopathy, generalized Vitamin D deficiency Oxygen dependent Dependence on supplemental oxygen Community acquired pneumonia, unspecified laterality COPD mixed type ([facility])- Primary SANTO (obstructive sleep apnea) Obstructive sleep apnea (adult) (pediatric) Lung nodule, multiple Community acquired pneumonia, unspecified laterality Primary hypertension ([facility]) Unspecified essential hypertension Atrial fibrillation, unspecified type ([facility]) Type 2 diabetes mellitus without complication, with long-term current use of insulin Tobacco user Tobacco use disorder Needs flu shot Need for prophylactic vaccination and inoculation against influenza Right wrist pain- Primary Pain in joint, forearm Obesity (BMI 30-39.9) 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 ([facility])- Primary COPD with acute exacerbation ([facility])- Primary Oxygen dependent Dependence on supplemental oxygen COPD mixed type ([facility] Obesity (BMI 30-39.9) COVID- Primary Type 2 diabetes mellitus with diabetic polyneuropathy ([facility]) Type 2 diabetes mellitus with hyperglycemia (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 COPD mixed type ([facility] Paroxysmal atrial fibrillation ([facility] Atrial fibrillation Primary hypertension ([facility]) Unspecified essential hypertension Tobacco user Tobacco use disorder JORDAN (generalized anxiety disorder) ([facility])- Primary Generalized anxiety disorder SANTO (obstructive sleep apnea) Obstructive sleep apnea (adult) (pediatric) Type 2 diabetes mellitus with diabetic polyneuropathy, with long-term current use of insulin ([facility]) COPD mixed type ([facility] Oxygen dependent Dependence on supplemental oxygen Paroxysmal atrial fibrillation ([facility] Atrial fibrillation Primary hypertension ([facility]) Unspecified essential hypertension Gastroesophageal reflux disease, unspecified whether esophagitis present Obesity (BMI 30-39.9) Type 2 diabetes mellitus without complication, with long-term current use of insulin Anxiety and depression ([facility]) retirement (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 ([facility]) Medical non-compliance Mild episode of recurrent major depressive disorder (HCC) ([facility]) Cigarette nicotine dependence without complication Encounter for screening mammogram for malignant neoplasm of breast Diabetic polyneuropathy associated with type 2 diabetes mellitus ([facility] Mixed hyperlipidemia ([facility]) Mixed hyperlipidemia Edema of extremities Edema Abscess of left groin- Primary Primary hypertension ([facility]) Unspecified essential hypertension Type 2 diabetes mellitus without complication, with long-term current use of insulin Cigarette nicotine dependence without complication Encounter for screening mammogram for malignant neoplasm of breast Gill rash of groin Mild episode of recurrent major depressive disorder (HCC) ([facility]) Type 2 diabetes mellitus without complication, with long-term current use of insulin- Primary Obesity (BMI 30-39.9) Abscess of left groin documented in this encounter [facility] HealthcareEvaluation note* Diagnosis Primary hypertension- Primary Unspecified essential hypertension Type 2 diabetes mellitus with diabetic neuropathy, with long-term current use of insulin ([facility]) Gastroesophageal reflux disease, unspecified whether esophagitis present Vitamin D deficiency Type 2 diabetes mellitus with complication, without long-term current use of insulin ([facility]) Mixed hyperlipidemia Mixed hyperlipidemia Encounter for screening mammogram for malignant neoplasm of breast SANTO (obstructive sleep apnea) Obstructive sleep apnea (adult) (pediatric) COPD mixed type ([facility]) Anxiety and depression COVID Open wound Open wound(s) (multiple) of unspecified site(s), without mention of complication Morbid obesity with body mass index (BMI) of 40.0 to 49.9 ([facility]) COPD mixed type (HCC)- Primary Dysuria Atrial fibrillation, unspecified type (HCC) Gastroesophageal reflux disease, unspecified whether esophagitis present Type 2 diabetes mellitus with complication, without long-term current use of insulin ([facility]) Obesity (BMI 30-39.9) Tobacco user Tobacco use disorder Anxiety and depression Dermatitis Contact dermatitis and other eczema, due to unspecified cause Type 2 diabetes mellitus with hyperglycemia ([facility])- Primary Primary hypertension Unspecified essential hypertension Edema of extremities Edema Type 2 diabetes mellitus without complication, with long-term current use of insulin ([facility]) Vitamin D deficiency Tobacco user Tobacco use disorder Dizziness and giddiness Atrial fibrillation, unspecified type (HCC) COPD mixed type (HCC) Open wound of buttock, unspecified laterality, initial encounter- Primary Type 2 diabetes mellitus without complication, with long-term current use of insulin ([facility]) Obesity (BMI 30-39.9) Dizziness and giddiness Viral upper respiratory tract infection- Primary Acute upper respiratory infections of unspecified site Tobacco user Tobacco use disorder Open wound Open wound(s) (multiple) of unspecified site(s), without mention of complication Obesity (BMI 30-39.9) Type 2 diabetes mellitus without complication, with long-term current use of insulin ([facility]) Encounter for wellness examination- Primary Osteoporosis, unspecified osteoporosis type, unspecified pathological fracture presence Open wound of buttock, unspecified laterality, initial encounter Type 2 diabetes mellitus without complication, with long-term current use of insulin ([facility]) Obesity (BMI 30-39.9) Tobacco user Tobacco use disorder Anxiety and depression Type 2 diabetes mellitus with diabetic neuropathy, with long-term current use of insulin ([facility]) COPD mixed type (HCC) Diabetic polyneuropathy associated with type 2 diabetes mellitus ([facility]) Gastroesophageal reflux disease, unspecified whether esophagitis present [...] complication, with long-term current use of insulin ([facility]) Tobacco user Tobacco use disorder Needs flu shot Need for prophylactic vaccination and inoculation against influenza Right wrist pain- Primary Pain in joint, forearm Obesity (BMI 30-39.9) 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 ([facility])- Primary COPD with acute exacerbation ([facility])- Primary Oxygen dependent Dependence on supplemental oxygen COPD mixed type (HCC) Obesity (BMI 30-39.9) COVID- Primary Type 2 diabetes mellitus with diabetic polyneuropathy ([facility]) Type 2 diabetes mellitus with hyperglycemia (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) COPD mixed type (HCC) Oxygen dependent Dependence on supplemental oxygen Paroxysmal atrial fibrillation (HCC) Atrial fibrillation Primary hypertension Unspecified essential hypertension Gastroesophageal reflux disease, unspecified whether esophagitis present Obesity (BMI 30-39.9) Type 2 diabetes mellitus without complication, with long-term current use of insulin (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) Medical non-compliance Mild episode of recurrent major depressive disorder Cigarette nicotine dependence without complication Encounter for screening mammogram for malignant neoplasm of breast Diabetic polyneuropathy associated with type 2 diabetes mellitus ([facility]) Mixed hyperlipidemia Mixed hyperlipidemia Edema of extremities Edema Abscess of left groin- Primary Primary hypertension Unspecified essential hypertension Type 2 diabetes mellitus without complication, with long-term current use of insulin ([facility]) Cigarette nicotine dependence without complication Encounter for screening mammogram for malignant neoplasm of breast Gill rash of groin Mild episode of recurrent major depressive disorder COPD mixed type ([facility]) documented in this encounter [facility] HealthcareEvaluation note* Diagnosis Primary hypertension- Primary Unspecified essential hypertension Type 2 diabetes mellitus with diabetic neuropathy, with long-term current use of insulin ([facility]) Gastroesophageal reflux disease, unspecified whether esophagitis present Vitamin D deficiency Type 2 diabetes mellitus with complication, without long-term current use of insulin ([facility]) Mixed hyperlipidemia Mixed hyperlipidemia Encounter for screening mammogram for malignant neoplasm of breast SANTO (obstructive sleep apnea) Obstructive sleep apnea (adult) (pediatric) COPD mixed type (HCC) Anxiety and depression COVID Open wound Open wound(s) (multiple) of unspecified site(s), without mention of complication Morbid obesity with body mass index (BMI) of 40.0 to 49.9 ([facility]) COPD mixed type (HCC)- Primary Dysuria Atrial fibrillation, unspecified type (HCC) Gastroesophageal reflux disease, unspecified whether esophagitis present Type 2 diabetes mellitus with complication, without long-term current use of insulin ([facility]) Obesity (BMI 30-39.9) Tobacco user Tobacco use [...] complication, with long-term current use of insulin ([facility]) Obesity (BMI 30-39.9) Dizziness and giddiness Viral upper respiratory tract infection- Primary Acute upper respiratory infections of unspecified site Tobacco user Tobacco use disorder Open wound Open wound(s) (multiple) of unspecified site(s), without mention of complication Obesity (BMI 30-39.9) Type 2 diabetes mellitus without complication, with long-term current use of insulin ([facility]) Encounter for wellness examination- Primary Osteoporosis, unspecified osteoporosis type, unspecified pathological fracture presence Open wound of buttock, unspecified laterality, initial encounter Type 2 diabetes mellitus without complication, with long-term current use of insulin (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) COPD mixed type (HCC) Paroxysmal atrial fibrillation (HCC) Atrial fibrillation Primary hypertension Unspecified essential hypertension Tobacco user Tobacco use disorder JORDAN (generalized anxiety disorder)- Primary Generalized anxiety disorder SANTO (obstructive sleep apnea) Obstructive sleep apnea (adult) (pediatric) Type 2 diabetes mellitus with diabetic polyneuropathy, with long-term current use of insulin ([facility]) COPD mixed type ([facility]) Oxygen dependent Dependence on supplemental oxygen Paroxysmal atrial fibrillation ([facility]) Atrial fibrillation Primary hypertension Unspecified essential hypertension Gastroesophageal reflux disease, unspecified whether esophagitis present Obesity (BMI 30-39.9) Type 2 diabetes mellitus without complication, with long-term current use of insulin ([facility]) Anxiety and depression retirement (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 ([facility]) Medical non-compliance Mild episode of recurrent major depressive disorder Cigarette nicotine dependence without complication Encounter for screening mammogram for malignant neoplasm of breast Diabetic polyneuropathy associated with type 2 diabetes mellitus ([facility]) Mixed hyperlipidemia Mixed hyperlipidemia Edema of extremities Edema Abscess of left groin- Primary Primary hypertension Unspecified essential hypertension Type 2 diabetes mellitus without complication, with long-term current use of insulin ([facility]) Cigarette nicotine dependence without complication Encounter for screening mammogram for malignant neoplasm of breast Gill rash of groin Mild episode of recurrent major depressive disorder Primary hypertension- Primary Unspecified essential hypertension documented in this encounter [facility] HealthcareEvaluation note* Diagnosis Primary hypertension- Primary Unspecified essential hypertension Type 2 diabetes mellitus with diabetic neuropathy, with long-term current use of insulin ([facility]) Gastroesophageal reflux disease, unspecified whether esophagitis present Vitamin D deficiency Type 2 diabetes mellitus with complication, without long-term current use of insulin ([facility]) Mixed hyperlipidemia Mixed hyperlipidemia Encounter for screening mammogram for malignant neoplasm of breast SANTO (obstructive sleep apnea) Obstructive sleep apnea (adult) (pediatric) COPD mixed type ([facility]) Anxiety and depression COVID Open wound Open wound(s) (multiple) of unspecified site(s), without mention of complication Morbid obesity with body mass index (BMI) of 40.0 to 49.9 ([facility]) COPD mixed type (HCC)- Primary Dysuria Atrial fibrillation, unspecified type ([facility]) Gastroesophageal reflux disease, unspecified whether esophagitis present Type 2 diabetes mellitus with complication, without long-term current use of insulin ([facility]) Obesity (BMI 30-39.9) Tobacco user Tobacco use [...] complication, with long-term current use of insulin ([facility]) Encounter for wellness examination- Primary Osteoporosis, unspecified osteoporosis type, unspecified pathological fracture presence Open wound of buttock, unspecified laterality, initial encounter Type 2 diabetes mellitus without complication, with long-term current use of insulin ([facility]) Obesity (BMI 30-39.9) Tobacco user Tobacco use [...] complication, with long-term current use of insulin (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) COPD mixed type (HCC) Oxygen dependent Dependence on supplemental oxygen Paroxysmal atrial fibrillation (HCC) Atrial fibrillation Primary hypertension Unspecified essential hypertension Gastroesophageal reflux disease, unspecified whether esophagitis present Obesity (BMI 30-39.9) Type 2 diabetes mellitus without complication, with long-term current use of insulin (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) Medical non-compliance Mild episode of recurrent major depressive disorder Cigarette nicotine dependence without complication Encounter for screening mammogram for malignant neoplasm of breast Diabetic polyneuropathy associated with type 2 diabetes mellitus ([facility]) Mixed hyperlipidemia Mixed hyperlipidemia Edema of extremities Edema Abscess of left groin- Primary Primary hypertension Unspecified essential hypertension Type 2 diabetes mellitus without complication, with long-term current use of insulin ([facility]) Cigarette nicotine dependence without complication Encounter for screening mammogram for malignant neoplasm of breast Gill rash of groin Mild episode of recurrent major depressive disorder Gill infection of genital region- Primary Type 2 diabetes mellitus without complication, with long-term current use of insulin ([facility]) Gill rash of groin Abscess of left groin documented in this encounter [facility] HealthcareEvaluation note* Diagnosis Primary hypertension- Primary Unspecified essential hypertension Type 2 diabetes mellitus with diabetic neuropathy, with long-term current use of insulin ([facility]) Gastroesophageal reflux disease, unspecified whether esophagitis present Vitamin D deficiency Type 2 diabetes mellitus with complication, without long-term current use of insulin ([facility]) Mixed hyperlipidemia Mixed hyperlipidemia Encounter for screening mammogram for malignant neoplasm of breast SANTO (obstructive sleep apnea) Obstructive sleep apnea (adult) (pediatric) COPD mixed type ([facility]) Anxiety and depression COVID Open wound Open wound(s) (multiple) of unspecified site(s), without mention of complication Morbid obesity with body mass index (BMI) of 40.0 to 49.9 ([facility]) COPD mixed type ([facility])- Primary Dysuria Atrial fibrillation, unspecified type (HCC) Gastroesophageal reflux disease, unspecified whether esophagitis present Type 2 diabetes mellitus with complication, without long-term current use of insulin ([facility]) Obesity (BMI 30-39.9) Tobacco user Tobacco use disorder Anxiety and depression Dermatitis Contact dermatitis and other eczema, due to unspecified cause Type 2 diabetes mellitus with hyperglycemia ([facility])- Primary Primary hypertension Unspecified essential hypertension Edema of extremities Edema Type 2 diabetes mellitus without complication, with long-term current use of insulin ([facility]) Vitamin D deficiency Tobacco user Tobacco use disorder Dizziness and giddiness Atrial fibrillation, unspecified type (HCC) COPD mixed type (HCC) Open wound of buttock, unspecified laterality, initial encounter- Primary Type 2 diabetes mellitus without complication, with long-term current use of insulin ([facility]) Obesity (BMI 30-39.9) Dizziness and giddiness Viral upper respiratory tract infection- Primary Acute upper respiratory infections of unspecified site Tobacco user Tobacco use disorder Open wound Open wound(s) (multiple) of unspecified site(s), without mention of complication Obesity (BMI 30-39.9) Type 2 diabetes mellitus without complication, with long-term current use of insulin ([facility]) Encounter for wellness examination- Primary Osteoporosis, unspecified osteoporosis type, unspecified pathological fracture presence Open wound of buttock, unspecified laterality, initial encounter Type 2 diabetes mellitus without complication, with long-term current use of insulin ([facility]) Obesity (BMI 30-39.9) Tobacco user Tobacco use disorder Anxiety and depression Type 2 diabetes mellitus with diabetic neuropathy, with long-term current use of insulin ([facility]) COPD mixed type (HCC) Diabetic polyneuropathy associated [...] complication, with long-term current use of insulin (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) Medical non-compliance Mild episode of recurrent major [...] fibrillation Medical non-compliance documented in this encounter [facility]* Diagnosis Primary hypertension- Primary Unspecified essential hypertension Type 2 diabetes mellitus with diabetic neuropathy, with long-term current use of insulin (HCC) Gastroesophageal reflux disease, unspecified whether esophagitis present Vitamin D deficiency Type 2 diabetes mellitus with complication, without long-term current use of insulin ([facility]) Mixed hyperlipidemia Mixed hyperlipidemia Encounter for screening mammogram for malignant neoplasm of breast SANTO (obstructive sleep apnea) Obstructive sleep apnea (adult) (pediatric) COPD mixed type ([facility]) Anxiety and depression COVID Open wound Open wound(s) (multiple) of unspecified site(s), without mention of complication Morbid obesity with body mass index (BMI) of 40.0 to 49.9 ([facility]) COPD mixed type (HCC)- Primary Dysuria Atrial fibrillation, unspecified type ([facility]) Gastroesophageal reflux disease, unspecified whether esophagitis present Type 2 diabetes mellitus with complication, without long-term current use of insulin ([facility]) Obesity (BMI 30-39.9) Tobacco user Tobacco use disorder Anxiety and depression Dermatitis Contact dermatitis and other eczema, due to unspecified cause Type 2 diabetes mellitus with hyperglycemia ([facility])- Primary Primary hypertension Unspecified essential hypertension Edema of extremities Edema Type 2 diabetes mellitus without complication, with long-term current use of insulin ([facility]) Vitamin D deficiency Tobacco user Tobacco use disorder Dizziness and giddiness Atrial fibrillation, unspecified type ([facility]) COPD mixed type ([facility]) Open wound of buttock, unspecified laterality, initial encounter- Primary Type 2 diabetes mellitus without complication, with long-term current use of insulin ([facility]) Obesity (BMI 30-39.9) Dizziness and giddiness Viral upper respiratory tract infection- Primary Acute upper respiratory infections of unspecified site Tobacco user Tobacco use disorder Open wound Open wound(s) (multiple) of unspecified site(s), without mention of complication Obesity (BMI 30-39.9) Type 2 diabetes mellitus without complication, with long-term current use of insulin ([facility]) Encounter for wellness examination- Primary Osteoporosis, unspecified osteoporosis type, unspecified pathological fracture presence Open wound of buttock, unspecified laterality, initial encounter Type 2 diabetes mellitus without complication, with long-term current use of insulin ([facility]) Obesity (BMI 30-39.9) Tobacco user Tobacco use disorder Anxiety and depression Type 2 diabetes mellitus with diabetic neuropathy, with long-term current use of insulin ([facility]) COPD mixed type ([facility]) Diabetic polyneuropathy associated with type 2 diabetes mellitus ([facility]) Gastroesophageal reflux disease, unspecified whether esophagitis present [...] Type 2 diabetes mellitus with diabetic polyneuropathy ([facility]) Type 2 diabetes mellitus with hyperglycemia (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) retirement (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 (HCC) COPD mixed type (HCC) Paroxysmal atrial fibrillation (HCC) Atrial fibrillation Primary hypertension Unspecified essential hypertension Tobacco user Tobacco use disorder JORDAN (generalized anxiety disorder)- Primary Generalized anxiety disorder SANTO (obstructive sleep apnea) Obstructive sleep apnea (adult) (pediatric) Type 2 diabetes mellitus with diabetic polyneuropathy, with long-term current use of insulin ([facility]) COPD mixed type (HCC) Oxygen dependent Dependence on supplemental oxygen Paroxysmal atrial fibrillation (HCC) Atrial fibrillation Primary hypertension Unspecified essential hypertension Gastroesophageal reflux disease, unspecified whether esophagitis present Obesity (BMI 30-39.9) Type 2 diabetes mellitus without complication, with long-term current use of insulin ([facility]) Anxiety and depression retirement (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 ([facility]) Medical non-compliance Mild episode of recurrent major depressive disorder Cigarette nicotine dependence without complication Encounter for screening mammogram for malignant neoplasm of breast Diabetic polyneuropathy associated with type 2 diabetes mellitus ([facility]) Mixed hyperlipidemia Mixed hyperlipidemia Edema of extremities Edema Abscess of left groin- Primary Primary hypertension Unspecified essential hypertension Type 2 diabetes mellitus without complication, with long-term current use of insulin ([facility]) Cigarette nicotine dependence without complication Encounter for screening mammogram for malignant neoplasm of breast Gill rash of groin Mild episode of recurrent major depressive disorder Gill infection of genital region- Primary Type 2 diabetes mellitus without complication, with long-term current use of insulin ([facility]) Gill rash of groin Abscess of left groin Type 2 diabetes mellitus without complication, with long-term current use of insulin ([facility])- Primary Gill rash of groin Cigarette nicotine dependence without complication Urge and stress incontinence Mixed incontinence urge and stress (male)(female) Primary hypertension Unspecified essential hypertension Paroxysmal atrial fibrillation (HCC) Atrial fibrillation Medical non-compliance Mild episode of recurrent major depressive disorder documented in this encounter [facility] HealthcareEvaluation note* Diagnosis Primary hypertension- Primary Unspecified essential hypertension Type 2 diabetes mellitus with diabetic neuropathy, with long-term current use of insulin ([facility]) Gastroesophageal reflux disease, unspecified whether esophagitis present Vitamin D deficiency Type 2 diabetes mellitus with complication, without long-term current use of insulin ([facility]) Mixed hyperlipidemia Mixed hyperlipidemia Encounter for screening mammogram for malignant neoplasm of breast SANTO (obstructive sleep apnea) Obstructive sleep apnea (adult) (pediatric) COPD mixed type ([facility]) Anxiety and depression COVID Open wound Open wound(s) (multiple) of unspecified site(s), without mention of complication Morbid obesity with body mass index (BMI) of 40.0 to 49.9 ([facility]) COPD mixed type ([facility])- Primary Dysuria Atrial fibrillation, unspecified type ([facility]) Gastroesophageal reflux disease, unspecified whether esophagitis present Type 2 diabetes mellitus with complication, without long-term current use of insulin ([facility]) Obesity (BMI 30-39.9) Tobacco user Tobacco use disorder Anxiety and depression Dermatitis Contact dermatitis and other eczema, due to unspecified cause Type 2 diabetes mellitus with hyperglycemia ([facility])- Primary Primary hypertension Unspecified essential hypertension Edema of extremities Edema Type 2 diabetes mellitus without complication, with long-term current use of insulin ([facility]) Vitamin D deficiency Tobacco user Tobacco use disorder Dizziness and giddiness Atrial fibrillation, unspecified type ([facility]) COPD mixed type ([facility]) Open wound of buttock, unspecified laterality, initial encounter- Primary Type 2 diabetes mellitus without complication, with long-term current use of insulin ([facility]) Obesity (BMI 30-39.9) Dizziness and giddiness Viral upper respiratory tract infection- Primary Acute upper respiratory infections of unspecified site Tobacco user Tobacco use disorder Open wound Open wound(s) (multiple) of unspecified site(s), without mention of complication Obesity (BMI 30-39.9) Type 2 diabetes mellitus without complication, with long-term current use of insulin ([facility]) Encounter for wellness examination- Primary Osteoporosis, unspecified osteoporosis type, unspecified pathological fracture presence Open wound of buttock, unspecified laterality, initial encounter Type 2 diabetes mellitus without complication, with long-term current use of insulin (HCC) Obesity (BMI 30-39.9) Tobacco user Tobacco use [...] complication, with long-term current use of insulin ([facility]) Tobacco user Tobacco use disorder Needs flu shot Need for prophylactic vaccination and inoculation against influenza Right wrist pain- Primary Pain in joint, forearm Obesity (BMI 30-39.9) 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 ([facility])- Primary COPD with acute exacerbation ([facility])- Primary Oxygen dependent Dependence on supplemental oxygen COPD mixed type (HCC) Obesity (BMI 30-39.9) COVID- Primary Type 2 diabetes mellitus with diabetic polyneuropathy ([facility]) Type 2 diabetes mellitus with hyperglycemia (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) retirement (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 (HCC) COPD mixed [...] use of insulin (HCC) Anxiety and depression retirement (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 ([facility]) Medical non-compliance Mild episode of recurrent major [...] atrial fibrillation (HCC) Atrial fibrillation Medical non-compliance Lung nodule, multiple Weight loss, unintentional Loss of weight 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 ([facility]) Vitamin D deficiency- Primary Primary hypertension Unspecified essential hypertension Edema of extremities Edema COPD mixed type (HCC) Type 2 diabetes mellitus with diabetic neuropathy, with long-term current use of insulin ([facility]) documented in this encounter [facility] (narrative)* Consultation (Routine) - Pending Review Specialty Diagnoses / Procedures Referred By Darcie joshua Referred To Contact Wound Care Diagnoses Open wound Type 2 diabetes mellitus without complication, with long-term current use of insulin ([facility]) Procedures SC OFFICE/OUTPATIENT NEW HIGH MDM 60 MINUTES Maira Rush NP [address] [place] [address] Referral ID Status Reason Start Date Expiration Date Visits Requested Visits Authorized [id number] Pending Review Specialty Services Required 03/11/2024 09/07/2024 1 1 Scheduling Instructions Please call [facility] and schedule pt with their wound [...] Specialty Diagnoses / Procedures Referred By Darcie t Referred To Contact Diagnoses COPD mixed type ([facility]) Maira Rush NP [address] [place] [address] Referral ID Status Reason Start Date Expiration Date V isits Requested Visits Authorized [id number] Pending Review 1 1 Additional Source Comments INFORMATION SOURCE (unrecogn ized section and content) DATE CREATED AUTHOR 10/06/2018 [facility] DATE CREATED AUTHOR AUTHOR'S ORGANIZ ATION 10/09/2022 [facility] DATE CREATED AUTHOR AUTHOR'S ORGANIZ ATION 01/25/2024 [facility] DATE CREATED AUTHOR AUTHOR'S ORGANIZ ATION 02/14/2024 [facility] DATE CREATED AUTHOR AUTHOR'S ORGANIZ ATION 11/02/2024 [facility] DATE CREATED AUTHOR AUTHOR'S ORGANIZ ATION 01/10/2025 [facility] EPIC DATE CREATED AUTHOR AUTHOR'S ORGANIZ ATION 01/20/2025 [facility] Care Teams (unrecognized sec tion and content) Electrical Engineer Relationship Specialty Start Date End Date Brandon Mcfarlane MD [address] [place] [address] PCP - General Family Medicine 06/26/23 Maira Rush NP [address] [place] [address] Referring Physician Nurse Practitioner 12/17/22 Electrical Engineer Relationship Specialty Start Date End Date Brandon Mcfarlane MD [address] [place] [address] PCP - General Family Medicine 06/26/23 Maira Rush NP [address] [place] [phone] Referring Physician Nurse Practitioner 12/17/22 Electrical Engineer Relationship Specialty Start Date End Date Brandon Mcfarlane MD [address] [place] [address] PCP - General Family Medicine 06/26/23 Maira Rush NP [address] [place] [address] Referring Physician Nurse Practitioner 12/17/22 Electrical Engineer Relationship Specialty Start Date End Date Brandon Mcfarlane MD [address] [place] [address] PCP - General Family Medicine 06/26/23 Maira Rush NP [address] [place] [address] Referring Physician Nurse Practitioner 12/17/22 Electrical Engineer Relationship Specialty Start Date End Date Brandon Mcfarlane MD [address] [place] [address] PCP - General Family Medicine 06/26/23 Maira Rush NP [address] [place] [address] Referring Physician Nurse Practitioner 12/17/22 Electrical Engineer Relationship Specialty Start Date End Date Brnadon Mcfarlane MD [address] [place] [address] PCP - General Family Medicine 06/26/23 Maira Rush NP [address] [place] [address] Referring Physician Nurse Practitioner 12/17/22 Electrical Engineer Relationship Specialty Start Date End Date Brandon Mcfarlane MD [address] [place] [address] PCP - General Family Medicine 06/26/23 Maira Rush NP [address] [place] [address] Referring Physician Nurse Practitioner 12/17/22 Electrical Engineer Relationship Specialty Start Date End Date Brandon Mcfarlane MD [address] [place] [address] PCP - General Family Medicine 06/26/23 Maira Rush NP [address] [place] [address] Referring Physician Nurse Practitioner 12/17/22 Electrical Engineer Relationship Specialty Start Date End Date Brandon Mcfarlane MD [address] [place] [address] PCP - General Family Medicine 06/26/23 Maira Rush NP [address] [place] [address] Referring Physician Nurse Practitioner 12/17/22 Electrical Engineer Relationship Specialty Start Date End Date Brandon Mcfarlane MD [address] [place] [address] PCP - General Family Medicine 06/26/23 Maira Rush NP [address] [place] [address] Referring Physician Nurse Practitioner 12/17/22 Electrical Engineer Relationship Specialty Start Date End Date Brandon Mcfarlane MD [address] [place] [address] PCP - General Family Medicine 06/26/23 Maira Rush NP [address] [place] [address] Referring Physician Nurse Practitioner 12/17/22 Electrical Engineer Relationship Specialty Start Date End Date Brandon Mcfarlane MD [address] [place] [address] PCP - General Family Medicine 06/26/23 Maira Rush NP [address] [place] [address] Referring Physician Nurse Practitioner 12/17/22 Electrical Engineer Relationship Specialty Start Date End Date Brandon Mcfarlane MD [address] [place] [address] PCP - General Family Medicine 06/26/23 Maira Rush NP [address] [place] [address] Referring Physician Nurse Practitioner 12/17/22 Electrical Engineer Relationship Specialty Start Date End Date Brandon Mcfarlane MD [address] [place] [address] PCP - General Family Medicine 06/26/23 Maira Rush NP [address] [place] [address] Referring Physician Nurse Practitioner 12/17/22 Electrical Engineer Relationship Specialty Start Date End Date Brandon Mcfarlane MD [address] [place] [address] PCP - General Family Medicine 06/26/23 Maira Rush NP [address] [place] [address] Referring Physician Nurse Practitioner 12/17/22 Electrical Engineer Relationship Specialty Start Date End Date Brandon Mcfarlane MD [address] [place] [address] PCP - General Family Medicine 06/26/23 Maira Rush NP [address] [place] [address] Referring Physician Nurse Practitioner 12/17/22 Electrical Engineer Relationship Specialty Start Date End Date Brandon Mcfarlane MD [address] [place] [address] PCP - General Family Medicine 06/26/23 Maira Rush NP [address] [place] [address] Referring Physician Nurse Practitioner 12/17/22 Electrical Engineer Relationship Specialty Start Date End Date Brandon Mcfarlane MD [address] [place] [address] PCP - General Family Medicine 06/26/23 Maira Rush NP [address] [place] [address] Referring Physician Nurse Practitioner 12/17/22 Electrical Engineer Relationship Specialty Start Date End Date Brandon Mcfarlane MD [address] [place] [address] PCP - General Family Medicine 06/26/23 Maira Rush NP [address] [place] [address] Referring Physician Nurse Practitioner 12/17/22 Electrical Engineer Relationship Specialty Start Date End Date Brandon Mcfarlane MD [address] [place] [address] PCP - General Family Medicine 06/26/23 Maira Rush NP [address] [place] [address] Referring Physician Nurse Practitioner 12/17/22 Electrical Engineer Relationship Specialty Start Date End Date Brandon Mcfarlane MD [address] [place] [address] PCP - General Family Medicine 06/26/23 Maira Rush NP [address] [place] [address] Referring Physician Nurse Practitioner 12/17/22 Electrical Engineer Relationship Specialty Start Date End Date Brandon Mcfarlane MD [address] [place] [address] PCP - General Family Medicine 06/26/23 Maira Rush NP [address] [place] [address] Referring Physician Nurse Practitioner 12/17/22 Electrical Engineer Relationship Specialty Start Date End Date Brandon Mcfarlane MD [address] [place] [address] PCP - General Family Medicine 06/26/23 Maira Rush NP [address] [place] [address] Referring Physician Nurse Practitioner 12/17/22 Electrical Engineer Relationship Specialty Start Date End Date Brandon Mcfarlane MD [address] [place] [address] PCP - General Family Medicine 06/26/23 Maira Rush NP [address] [place] [address] Referring Physician Nurse Practitioner 12/17/22 Electrical Engineer Relationship Specialty Start Date End Date Brandon Mcfarlane MD [address] [place] [address] PCP - General Family Medicine 06/26/23 Maira Rush NP [address] [place] [address] Referring Physician Nurse Practitioner 12/17/22 Electrical Engineer Relationship Specialty Start Date End Date Brandon Mcfarlane MD [address] [place] [address] PCP - General Family Medicine 06/26/23 Maira Rush NP [address] [place] [address] Referring Physician Nurse Practitioner 12/17/22 Electrical Engineer Relationship Specialty Start Date End Date Brandon Mcfarlane MD [address] [place] [address] PCP - General Family Medicine 06/26/23 Maira Rush NP [address] [place] [address] Referring Physician Nurse Practitioner 12/17/22 Electrical Engineer Relationship Specialty Start Date End Date Brandon Mcfarlane MD [address] [place] [address] PCP - General Family Medicine 06/26/23 Maira Rush NP [address] [place] [address] Referring Physician Nurse Practitioner 12/17/22 Electrical Engineer Relationship Specialty Start Date End Date Brandon Mcfarlane MD [address] [place] [address] PCP - General Family [facility] 06/26/23 Maira Rush NP [address] [place] [address] Referring Physician Nurse Practitioner 12/17/22 Electrical Engineer Relationship Specialty Start Date End Date Brandon Mcfarlane MD [address] [place] [address] PCP - [facility] 06/26/23 Maira Rush NP [address] [place] [address] [facility] 06/03/24 Maira Rush NP [address] [place] [address] Referring Physician Nurse Practitioner 12/17/22 Electrical Engineer Relationship Specialty Start Date End Date Brandon Mcfarlane MD [address] [place] [address] PCP - [facility] 06/26/23 Maira Rush NP [address] [place] [address] [facility] 06/03/24 Maira Rush NP [address] [place] [address] Referring Physician Nurse Practitioner 12/17/22 Electrical Engineer Relationship Specialty Start Date End Date Brandon Mcfarlane MD [address] [place] [address] PCP - General [facility] 06/26/23 Maira Rush NP [address] [place] [address] [facility] 06/03/24 Maira Rush NP [address] [place] [address] Referring Physician Nurse Practitioner 12/17/22 Electrical Engineer Relationship Specialty Start Date End Date Brandon Mcfarlane MD [address] [place] [address] PCP - [facility] 06/26/23 Maira Rush NP [address] [place] [address] [facility] 06/03/24 Maira Rush NP [address] [place] [address] Referring Physician Nurse Practitioner 12/17/22 Electrical Engineer Relationship Specialty Start Date End Date Brandon Mcfarlane MD [address] [place] [address] PCP - [facility] 06/26/23 Maira Rush NP [address] [place] [address] [facility] 06/03/24 Maira Rush NP [address] [place] [address] Referring Physician Nurse Practitioner 12/17/22 Electrical Engineer Relationship Specialty Start Date End Date Brandon Mcfarlane MD [address] [place] [address] PCP - General Family [facility] 06/26/23 Maira Rush NP [address] [place] [address] [facility] 06/03/24 Maira Rush NP [address] [place] [address] Referring Physician Nurse Practitioner 12/17/22 Electrical Engineer Relationship Specialty Start Date End Date Brandon Mcfarlane MD [address] [place] [address] PCP - [facility] 06/26/23 Maira Rush NP [address] [place] [address] [facility] 06/03/24 Maira Rush NP [address] [place] [address] Referring Physician Nurse Practitioner 12/17/22 Electrical Engineer Relationship Specialty Start Date End Date Brandon Mcfarlane MD [address] [place] [address] PCP - [facility] 06/26/23 Maira Rush NP [address] [place] [address] [facility] 06/03/24 Maira Rush NP [address] [place] [address] Referring Physician Nurse Practitioner 12/17/22 Electrical Engineer Relationship Specialty Start Date End Date Brandon Mcfarlane MD [address] [place] [address] PCP - [facility] 06/26/23 Maira Rush NP [address] [place] [address] [facility] 06/03/24 Maira Rush NP [address] [place] [address] Referring Physician Nurse Practitioner 12/17/22 Electrical Engineer Relationship Specialty Start Date End Date Brandon Mcfarlane MD [address] [place] [address] PCP - [facility] 06/26/23 Maira Rush NP [address] [place] [address] [facility] 06/03/24 Maira Rush NP [address] [place] [address] Referring Physician Nurse Practitioner 12/17/22 Electrical Engineer Relationship Specialty Start Date End Date Brandon Mcfarlane MD [address] [place] [address] PCP - General Family [facility] 06/26/23 Maira Rush NP [address] [place] [address] [facility] 06/03/24 Maira Rush NP [address] [place] [address] Referring Physician Nurse Practitioner 12/17/22 Electrical Engineer Relationship Specialty Start Date End Date Brandon Mcfarlane MD [address] [place] [address] PCP - General [facility] 06/26/23 Maira Rush NP [address] [place] [address] [facility] 06/03/24 Maira Rush NP [address] [place] [address] Referring Physician Nurse Practitioner 12/17/22 Electrical Engineer Relationship Specialty Start Date End Date Brandon Mcfarlane MD [address] [place] [address] PCP - General Family [facility] 06/26/23 Maira Rush NP [address] [place] [address] [facility] 06/03/24 Maira Rush NP [address] [place] [address] Referring Physician Nurse Practitioner 12/17/22 Electrical Engineer Relationship Specialty Start Date End Date Brandon Mcfarlane MD [address] [place] [address] PCP - [facility] 06/26/23 Maira Rush NP [address] [place] [address] [facility] 06/03/24 Maira Rush NP [address] [place] [address] Referring Physician Nurse Practitioner 12/17/22 Electrical Engineer Relationship Specialty Start Date End Date Brandon Mcfarlane MD [address] [place] [address] PCP - [facility] 06/26/23 Maira Rush NP [address] [place] [address] [facility] 06/03/24 Maira Rush NP [address] [place] [address] Referring Physician Nurse Practitioner 12/17/22 Electrical Engineer Relationship Specialty Start Date End Date Brandon Mcfarlane MD [address] [place] [address] PCP - General [facility] 06/26/23 Maira Rush NP [address] [place] [address] [facility] 06/03/24 Maira Rush NP [address] [place] [address] Referring Physician Nurse Practitioner 12/17/22 Electrical Engineer Relationship Specialty Start Date End Date Brandon Mcfarlane MD [address] [place] [address] PCP - General Family [facility] 06/26/23 Maira Rush NP [address] [place] [address] PCP [facility] 06/03/24 Maira Rush NP [address] [place] [address] Referring Physician Nurse Practitioner 12/17/22 Electrical Engineer Relationship Specialty Start Date End Date Brandon Mcfarlane MD [address] [place] [address] PCP - General Family [facility] 06/26/23 Maira Rush NP [address] [place] [address] [facility] 06/03/24 Maira Rush NP [address] [place] [address] Referring Physician Nurse Practitioner 12/17/22 Electrical Engineer Relationship Specialty Start Date End Date Brandon Mcfarlane MD [address] [place] [address] PCP - [facility] 06/26/23 Maira Rush NP [address] [place] [address] [facility] 06/03/24 Maira Rush NP [address] [place] [address] Referring Physician Nurse Practitioner 12/17/22 Electrical Engineer Relationship Specialty Start Date End Date Brandon Mcfarlane MD [address] [place] [address] PCP - [facility] 06/26/23 Maira Rush NP [address] [place] [address] PCP - [facility] 06/03/24 Maira Rush NP [address] [place] [address] Referring Physician Nurse Practitioner 12/17/22 Electrical Engineer Relationship Specialty Start Date End Date Brandon Mcfarlane MD [address] [place] [address] PCP - [facility] 06/26/23 Maira Rush NP [address] [place] [address] [facility] 06/03/24 Maira Rush NP [address] [place] [address] Referring Physician Nurse Practitioner 12/17/22 Electrical Engineer Relationship Specialty Start Date End Date Brandon Mcfarlane MD [address] [place] [address] PCP - [facility] 06/26/23 Maira Rush NP [address] [place] [address] [facility] 06/03/24 Maira Rush NP [address] [place] [address] Referring Physician Nurse Practitioner 12/17/22 Chandrika Danielson, [place] [address] [place] [address] Family Medicine 12/14/24 Lilian Quezada, SENIOR RELATIONSHIP MANAGER [address] [place] [address] [employer] Family Medicine 12/14/24 Electrical Engineer Relationship Specialty Start Date End Date Brandon Mcfarlane MD [address] [place] [address] PCP - General [facility] 06/26/23 Maira Rush NP [address] [place] [address] PCP - [facility] 06/03/24 Maira Rush NP [address] [place] [address] Referring Physician Nurse Practitioner 12/17/22 Chandrika Danielson, [place] [address] [place] [address] Family Medicine 12/14/24 Lilian Quezada, SENIOR RELATIONSHIP MANAGER [address] [place] [address] [employer] Family Medicine 12/14/24 Electrical Engineer Relationship Specialty Start Date End Date Brandon Mcfarlane MD [address] [place] [address] PCP - General [facility] 06/26/23 Maira Rush NP [address] [place] [address] PCP - [facility] 06/03/24 Maira Rush NP [address] [place] [address] Referring Physician Nurse Practitioner 12/17/22 Chandrika Danielson, NORAH [address] [place] [address] Family Medicine 12/14/24 Lilian Quezada, SENIOR RELATIONSHIP MANAGER [address] [place] [address] [employer] Family Medicine 12/14/24 Reason for Visit (unrecogniz [...] BE BASED ON THE PRIMARY CLINICAL RECORDS. [facility] [employer] [facility]. provides no warranty or guarantee of the accuracy or completeness of information in this document.
--- OUTSIDE RECORDS SUMMARY | 2025-01-27 00:20 | XMS_ITS | Encounter Summary ---
Author Organization [facility] Address [address] [place] [address] Care Team Providers Care Laboratory Scientist Name Role Phone Maira Rush NP Unavailable [phone] Brandon Monterroso MD Primary Care Provider [phone] Maira Rush NP Unavailable [phone] Chandrika Danielson MA Unavailable [phone] Lilian Quezada MEDICAL CODING SPECIALIST Unavailable [phone] Encounter Details Date Type Department Care Team ([facility] Contact Info) Description 01/14/[address] [facility] [address] [place] [address] Chandrika Danielson MA [address] [place] [address] Social History Tobacco Use Types Packs/Day Years Used Date Smoking Tobacco: Former Cigarettes 0.5 39.8 1 983 - 04/2022 Alcohol Use Standard Drinks/Week Comments Not Currently 0 (1 standard drink = 0.6 oz pur e alcohol) coffee 1-2 cups per day B1300 Health Literacy Answer Date Recor ded How often do you need to hav e someone help you when you read instructions, pamphlets, or other written material from your doctor or pharmacy? Rarely 12/14/2024 Humiliation, Afraid, Rape, and Kick questionnair e Answer Date Recorded Within the last year, have y ou been afraid of your partner or ex-partner? No 12/14/2024 Within the last year, have y ou been humiliated or emotionally abused in other ways by your partner or ex-partner? No Within the last year, have y ou been kicked, hit, slapped, or otherwise physically hurt by your partner or ex-partner? No 12/14/2024 Within the last year, have y ou been raped or forced to have any kind of sexual activity by your partner or ex-partner? No 12/14/2024 Social Connection and Isolation Panel [NHANES] A nswer Date Recorded In a typical week, how many times do you talk on the phone with family, friends, or neighbors? Patient declined 12/14/2024 How often do you get togethe r with friends or relatives? Never 12/14/2024 How often do you attend evangelical or church serv ices? Never 12/14/2024 Do you belong to any clubs o r organizations such as evangelical groups, unions, fraFunium or athletic groups, or school groups? No 12/14/2024 Attends Club or Organization Meetings Not on gopi e 12/14/2024 Are you , , di vorced, , never , or living with a partner? 12/14/2024 AUDIT-C Answer Date Recorded Q1: How often do you have a drink containing alcohol? Never 12/14/2024 Q2: How many drinks containi ng alcohol do you have on a typical day when you are drinking? Patient does not drink Q3: How often do you have si x or more drinks on one occasion? Never 12/14/2024 Overall Financial Resource Strain (CARDIA) Answe r Date Recorded How hard is it for you to pa y for the very basics like food, housing, medical care, and heating? Hard 12/14/2024 PHQ-2 Answer Date Recorded Patient Health Questionnaire-2 Score 0 10/16/2023 [facility] Occupat ional Health - Occupational Stress Questionnaire Answer Date Recorded Do you feel stress - tense, restless, nervous, or anxious, or unable to sleep at night because your mind is troubled all the time - these days? Very much 12/14/2024 Exercise Vital Sign Answer Date Recorde d On average, how many days pe r week do you engage in moderate to strenuous exercise (like a brisk walk)? 0 days 12/14/2024 On average, how many minutes do you engage in exercise at this level? 0 min 12/14/2024 Hunger Vital Sign Answer Date Recorded Within the past 12 months, y ou worried that your food would run out before you got the money to buy more. Sometimes true Within the past 12 months, t he food you bought just didn't last and you didn't have money to get more. Sometimes true PRAPARE - Transportation Answer Date Re corded In the past 12 months, has l ack of transportation kept you from medical appointments or from getting medications? Yes 12/01 In the past 12 months, has l ack of transportation kept you from meetings, work, or from getting things needed for daily living? Yes 12/14/2024 Housing Stability Vital Sign Answer Henrique e Recorded In the last 12 months, was t here a time when you were not able to pay the mortgage or rent on time? Yes 12/14/2024 In the past 12 months, how m any times have you moved where you were living? 0 12/14/2024 At any time in the past 12 m [facility], were you homeless or living in a longterm (including now)? No 12/14/2024 Comments Unknown Sex and Gender Information Value Date Recorded Sex Assigned at Not on file Legal Sex Female 7:18 PM EDT Gender Identity Not on file Sexual Orientation Not on file documented as of this encounter Progress Notes * Chandrika Danielson MA - 01/14/2025 11:15 AM EDT Pt contacted for outreach via phone as she did not show for appt today. Pt stated her car was repossessed Saturday. She did have some of her belongings in the vehicle but the gentleman did allow her totake her belongings out. She is still at her apartment for now, she said she is waiting on the toilet attendant to show up. She did complete the application for [place] and [place] waiver with [facility]. She hasn't received any calls yet. Clinical Medical Assistant recommended she contact [facility] based apartments if [place] mayer gave her several names of complexes. Pt wrote down the names. I also advised her if she does get evicted and hasn't found a place to go, she should reach out to the [place] in [place]. I ex plained to her that if she can stay there, after a short time, they do help with security deposit and first month's rent for people to get into a place. She wasn't aware of that. I asked her to keep in touch if something happens before our next outreach call, so we can help and she agreed. Pt said she has lost more weight, she believes, her scale read 160lbs this morning. She is not keeping her BS under control and is not watching her diet. At this point I feel she is so overwhelmed with everything, it's impossible for her to do this. Her is in the halfway and she said she is going to give guardianship over to his sister. She feels she isn't capable of making the best decisions for him and is afraid she is going to mess something up, she said. She is having a hard time coming to terms with his dementia and his demeanor towards her when she calls or visits. He is very cold when he does recognize her and other times he doesn't know who she is. We ended the call as her kitten got into some cheetos and got sick. Pt agreed to stay in touch, tiffanys have my number in her phone. documented in this encounter Plan of Treatment Upcoming Encounters Date Type Department Care Team (Late st Contact Info) Description 02/11/2025 11:30 AM EDT Clinical Support [facility] [place] [facility] [address] [place] [address] Bob Medina RN documented as of this encounter Visit Diagnoses Diagnosis Type 2 diabetes mellitus with hyperglycemia, with long-term current use of insulin (HCC)- Primary Essential (primary) hypertension Unspecified essential hypertension documented in this encounter Care Teams Laboratory Scientist Relationship Specialty Start Date End Date Brandon Monterroso MD [address] [place] [address] PCP - General Family Medicine 06/26/23 Maira Rush NP [address] [place] [address] PCP - [facility] 06/03/24 Maira Rush NP [address] [place] [address] Referring Physician Nurse Practitioner 12/17/22 Chandrika Danielson, NORAH [address] [place] [address] Family Medicine 12/14/24 01/26/25 Lilian Quezada, MIAH [address] [place] [address] Apparel Manager Family Medicine 12/14/24 01/26/25 documented as of this encounter
--- OUTSIDE RECORDS SUMMARY | 2025-01-27 00:20 | XMS_ITS | Encounter Summary ---
Author Organization [facility] Address [id number] [address] [place] [address] Care Team Providers Care Skilled Laborer Name Role Phone Maira Rush APRN-SENIOR PROJECT ARCHITECT Primary Care Provider Encounter Details Date Type Department Care Team (Late st Contact Info) Description 07/12/2022 Orders Only [facility] [address] [place] [phone] Jessica Lantigua LPN Social History Tobacco Use Types Packs/Day Years Used Date Smoking Tobacco: Never Assessed Childcare Answer Date Recorded Childcare Unknown 11/12/2018 Employment Answer Date Recorded Employment Unknown 11/12/2018 Purpose - Life Answer Date Recorded Purpose and direction in life Unknown Comments Unknown Sex and Gender Information Value Date Recorded Sex Assigned at Not on file Legal Sex Female 12:01 PM EDT Gender Identity Not on file Sexual Orientation Not on file COVID-19 Exposure Response Date Recorded In the last month, have you been in contact with someone who was confirmed or suspected to have Coronavirus / COVID-19? No / Unsure 07/13/2022 9:49 AM EST documented as of this encounter Plan of Treatment Not on file documented as of this encounter Procedures Procedure Name Priority Date/Time Associated Diagnosis Comments PULMONARY FUNCTION TEST Routine 06/20/2022 documented in this encounter Results * Pulmonary function test (06/20/2022) us Not In System Ref Prov PFT ORDERABLES Final Res ult MANUALLY TRANSCRIBED RESULTS documented in this encounter Visit Diagnoses Not on filedocumented in this encounter Care Teams Skilled Laborer Relationship Specialty Start Date End Date Maira Rush, SECY-SENIOR PROJECT ARCHITECT PCP - General Nurse Practitioner 01/16/24 documented as of this encounter
--- OUTSIDE RECORDS SUMMARY | 2025-01-27 00:20 | XMS_ITS | Encounter Summary ---
Author Organization [facility] Address [address] [facility] [address] Care Team Providers Care Eclectic Doctor Name Role Phone Maira Rush FIRST OFFICER AND FLIGHT INSTRUCTOR Unavailable [phone] Brandon Monterroso MD Primary Care Provider Maira Rush FIRST OFFICER AND FLIGHT INSTRUCTOR Unavailable [phone] Chandrika Danielson MA Unavailable [phone] Lilian Quezada GAS TECHNICIAN Unavailable Encounter Details Date Type Department Care Team (Late Contact Info) Description 12/14/2024 [facility] [address] [place] [address] Maira Rush NP [address] [place] [address] Social History Tobacco Use Types Packs/Day Years [...] Never 12/14/2024 How often do you attend pentecostal or baptism serv ices? Never 12/14/2024 Do you belong to any clubs o r organizations such as pentecostal groups, unions, fraternal or athletic groups, or school groups? No [...] Recorded Patient Health Questionnaire-2 Score 0 10/16/2023 [facility] - Occupational Stress Questionnaire Answer [...] time in the past 12 m [facility], were you homeless or living in a residential (including now)? No 12/14/2024 Comments Unknown Sex and Gender Information Value Date Recorded Sex Assigned at Not on file Legal Sex Female 7:18 PM EDT Gender Identity Not on file Sexual Orientation Not on file documented as of this encounter Functional Status * Audit-C Score Answer Date of Assessment Author 0 12/14/2024 1:49 PM EDT Chacho Danielson MA * Question Answer Date of Assessment Author Q1: How often do you have a drink containing alcohol? Never 12/14/2024 1:49 PM EDT Chandrika Danielson M A Q2: How many drinks containing alcohol do you have on a typical day when you are drinking? Patient does not drink 12/14/2024 1:49 PM EDT Chandrika Danielson MA Q3: How often do you have six or more drinks on one occasion? Never 12/14/2024 1:49 PM EDT Chandrika Danielson M A documented as of this encounter Plan of Treatment Upcoming Encounters Date Type Department Care Team (Late st Contact Info) Description 02/11/2025 11:30 AM EDT Clinical Support [facility] [place] [facility] [address] [place] [phone] Bob Medina, RN documented as of this encounter Visit Diagnoses Not on filedocumented in this encounter Care Teams Eclectic Doctor Relationship Specialty Start Date End Date Brandon Monterroso MD [address] [place] [address] PCP - General Family Medicine 06/26/23 Maira Rush NP [address] [place] [address] PCP - [facility] 06/03/24 Maira Rush NP [address] [place] [address] Referring Physician Nurse Practitioner 12/17/22 Chandrika Danielson, NORAH [address] [place] [address] Family Medicine 12/14/24 01/26/25 Lilian Quezada, MIAH [address] [place] [address] Production Cell Leader Family Medicine 12/14/24 01/26/25 documented as of this encounter
--- OUTSIDE RECORDS SUMMARY | 2025-01-27 00:20 | XMS_ITS | Encounter Summary ---
Author Organization [facility] Address [address] [place] [address] Care Team Providers Care Embroidery Assistant Name Role Phone Maira Rush CONSTRUCTION ACCOUNTANT Unavailable [phone] Brandon Monterroso MD Primary Care Provider Maira Rush CONSTRUCTION ACCOUNTANT Unavailable [phone] Chandrika Danielson MA Unavailable [phone] Lilian Quezada MANAGER TELEMETRY Unavailable Encounter Details Date Type Department Care Team (Late st Contact Info) Description 04/22/2024 Orders Only [facility] [address] [place] [address] Felton Gilman MD [address] [place] [address] Social History Tobacco Use Types Packs/Day Years Used Date Smoking Tobacco: Former Cigarettes 0.5 39.8 1 983 - 04/2022 Alcohol Use Standard Drinks/Week Comments Not Currently 0 (1 standard drink = 0.6 oz pur e alcohol) coffee 1-2 cups per day PHQ-2 Answer Date Recorded Patient Health Questionnaire-2 Score 0 10/16/2023 Comments Unknown Sex and Gender Information Value Date Recorded Sex Assigned at Not on file Legal Sex Female 7:18 PM EDT Gender Identity Not on file Sexual Orientation Not on file documented as of this encounter Plan of Treatment Upcoming Encounters Date Type Department Care Team (Late Contact Info) Description 02/11/2025 11:30 AM EDT Clinical Support [facility] [place] [facility] [address] [place] [address] Bob Medina RN documented as of this encounter Procedures Procedure Name Priority Date/Time Associated Diagnosis Comments PROTEIN, BODY FLUID Routine 04/22/2024 10:50 AM EST MAGNESIUM Routine 04/22/2024 10:50 AM EST HEMOGLOBIN A1C Routine 04/22/2024 10:50 AM EST BASIC METABOLIC PANEL Routine 04/22/2024 10:50 AM EST documented in this encounter Results * Hemoglobin A1c (04/22/2024 10:50 AM EST) Blood Venous blood specimen / Unknown us Felton Gilman MD LAB BLOOD ORDERABLES Final Re sult * Magnesium (04/22/2024 10:50 AM EST) Blood Venous blood specimen / Unknown us Felton Gilman MD LAB BLOOD ORDERABLES Final Re sult * Basic metabolic panel (04/22/2024 10:50 AM EST) Blood Venous blood specimen / Unknown us Felton Gilman MD LAB BLOOD ORDERABLES Final Re sult * Protein, body fluid (04/22/2024 10:50 AM EST) Body Fluid us Felton Gilman MD LAB BODY FLUIDS AND STOOLS OR DERABLES Final Result documented in this encounter Visit Diagnoses Not on filedocumented in this encounter Care Teams Embroidery Assistant Relationship Specialty Start Date End Date Brandon Monterroso MD [address] [place] [address] PCP - General Family Medicine 06/26/23 Maira Rush NP [address] [place] [address] PCP - [facility] 06/03/24 Maira Rush NP [address] [place] [address] Referring Physician Nurse Practitioner 12/17/22 Chandrika Danielson, NORAH [address] [place] [address] Family Medicine 12/14/24 01/26/25 Lilian Quezada, MIAH [address] [place] [address] Airport Sales Agent Family Medicine 12/14/24 01/26/25 documented as of this encounter
--- OUTSIDE RECORDS SUMMARY | 2025-01-27 00:20 | XMS_ITS | Encounter Summary ---
Author Organization [facility] Address [address] [place] [address] Care Team Providers Care Funding Analyst Name Role Phone Maira Rush COIN BOX INSPECTOR Unavailable [phone] Brandon Monterroso MD Primary Care Provider Maira Rush COIN BOX INSPECTOR Unavailable [phone] Chandrika Danielson MA Unavailable [phone] Lilian Quezada FUEL CELL ENGINEER Unavailable [phone] Reason for Visit * Reason Comments Med Refill Encounter Details Date Type Department Care Team (Late st Contact Info) Description 04/29/2024 Refill [facility] [address] [place] [address] Felton Gilman MD [address] [place] [address] Type 2 diabetes mellitus with hyperglycemia, with long-term current use of insulin ([facility]) Social History Tobacco Use Types Packs/Day Years [...] on file documented as of this encounter Miscellaneous Notes * Telephone Encounter - Eli Carmona LPN - 04/29/2024 1:56 PM EST Approving, but needs appt for additional refills. documented in this encounter Plan of Treatment Upcoming Encounters Date Type Department Care Team (Late st Contact Info) Description 02/11/2025 11:30 AM EDT Clinical Support YOLY Gonzales Patient Education [address] [facility] [address] Bob Medina RN documented as of this encounter Visit Diagnoses Diagnosis Type 2 diabetes mellitus with hyperglycemia, with long-term current use of insulin (HCC) documented in this encounter Care Teams Funding Analyst Relationship Specialty Start Date End Date Brandon Monterroso MD [address] [place] [address] PCP - General Family Medicine 06/26/23 Maira Rush NP [address] [place] [address] PCP - [facility] 06/03/24 Maira Rush NP [address] [place] [address] Referring Physician Nurse Practitioner 12/17/22 Chandrika Danielson MA [address] [place] [address] Family Medicine 12/14/24 01/26/25 Lilian Quezada LSW [address] [place] [address] English Tutor Family Medicine 12/14/24 01/26/25 documented as of this encounter
--- OUTSIDE RECORDS SUMMARY | 2025-01-27 00:20 | XMS_ITS | Encounter Summary ---
Author Organization [facility] Address [id number] [address] [place] [address] Care Team Providers Care Running Rigger Name Role Phone [facility] Maira Kel SPAULDING-CADD DRAFTER Primary Care Provider Encounter Details Date Type Department Care Team (Late st Contact Info) Description 08/13/2022 Orders Only [facility] Pulmonary/Sleep Medicine [address] [facility] [address] [place] [phone] Ref Prov, [place] [address] Social History Tobacco Use Types Packs/Day Years Used Date Smoking Tobacco: Former Cigarettes S tarted: 04/2022 Smokeless Tobacco: Never Alcohol Use Standard Drinks/Week Comments Not Currently 0 (1 standard drink = 0.6 oz pur e alcohol) Childcare Answer Date Recorded Childcare Unknown 11/12/2018 [...] Procedure Name Priority Date/Time Associated Diagnosis Comments ECHO 2.0 Routine 04/09/2022 CT CTA CHEST Routine 12/14/2009 documented in this encounter Results * Echo 2.0 (04/09/2022) Anatomical Region Laterality Modality Chest N/A Ultrasound us Not In System Ref Prov CV ECHO ORDERABLES Final Result * CT angiogram chest (12/14/2009) Anatomical Region Laterality Modality Lung, Body, Chest, Vascular, Body Covera N/A Computed Tomography us Not In System Ref Prov IMG CT ORDERABLES Final R esult documented in this encounter Visit Diagnoses Not on filedocumented in this encounter Care Teams Running Rigger Relationship Specialty Start Date End Date Maira Rush, ASSEMBLING FABRICATOR-CADD DRAFTER PCP - General Nurse Practitioner 01/16/24 documented as of this encounter
--- OUTSIDE RECORDS SUMMARY | 2025-01-27 00:20 | XMS_ITS | Encounter Summary ---
Author Organization [facility] Address [address] [place] [address] Care Team Providers Care Real Estate Financial Analyst Name Role Phone Maira Rush NP Unavailable [phone] Brandon Monterroso MD Primary Care Provider Maira Rush GYROSCOPIC INSTRUMENT TESTER Unavailable [phone] Chandrika Danielson MA Unavailable [phone] Lilian Quezada EXPORT FREIGHT MANAGER Unavailable [phone] Encounter Details Date Type Department Care Team (Late Contact Info) Description 05/25/2024 Clinisync Result Encounter [facility] External Department Unsolicited Maira Rush NP [address] [place] [id number] Social History Tobacco Use Types Packs/Day Years [...] Support YOLY Martinez Patient Education [address] [place] [address] Alt, Bob, RN documented as of this encounter Procedures Procedure Name Priority Date/Time Associated Diagnosis Comments CT CHEST W CONTRAST 05/25/2024 1 1:33 PM EST ALL C-PEPTIDE Routine 05/25/2024 9:08 AM EST documented in this encounter Results * CT CHEST W CONTRAST (05/25/2024 11:33 PM EST) Anatomical Region Laterality Modality Other 05/25/2024 11:3 3 PM EST Narrative 05/25/2024 11:35 [place] [address] [place] Scan Report Signed Patient: RODDY DIOR MR#: [id number] : 1960 Acct:[id number] Age/Sex: 63 / F ADM Date: 05/25/24 Loc: LAB Attending Dr: Maira Rush NP Ordering Physician: Maira Rush NP Date of Service: 05/25/24 Procedure(s): CT chest w con Accession Number(s): [id number] cc: Maira Rush NP The [address] [address] Patient Name: RODDY DIOR MRN: [id number] date: 1960 Sex: F Assigned Patient Location: LAB Current Patient Location: LAB Accession/Order Number: [id number] Exam Date: 05/25/2024 09:40 Report Date: 05/25/2024 23:33 At the request of: MAIRA RUSH Procedure: CT chest w con EXAMINATION: CT chest w con HISTORY: Tobacco User, Lung Nodule, Lymphadenopathy ; follow-up lung nodules COMPARISON: CTA chest 01/03/2024 TECHNIQUE: Multi-planar CT images were obtained without and/or with IV contrast as indicated by examination type. Axial, Coronal, and Sagittal images. Dose reduction techniques were achieved by using automated exposure control and/or adjustment of mA and/or kV according to patient size and/or use of iterative reconstruction technique. FINDINGS: LUNGS: Several small calcified and noncalcified nodules scattered within the lungs. Single larger round nodule within posterior right lung base, 8 mm. No acute infiltrates. Minimal emphysematous changes. PLEURA: No mass, effusion, or pneumothorax. VASCULATURE: No abnormality. ISAAC: No mass or adenopathy. MEDIASTINUM: No mass or adenopathy. CARDIAC: No enlargement or pericardial thickening.. Coronary artery calcifications: AORTA: No aneurysm or dissection. CHEST WALL: No mass or axillary adenopathy. BONES: No bone lesion or fracture. LIMITED ABDOMEN: 2.2 cm heterogeneously enhancing right adrenal mass. Limited images of the upper abdomen. OTHER: Negative. CT/CT chest w con IMPRESSION: 1. Nonspecific, but not overtly suspicious, 8 mm nodule within posterior right lung base. This is better seen on today's study with interval clearing of infiltrates. I suspect this has remained stable, however, follow-up CT chest in 6 months to document continued stability is recommended. 2. Scattered small calcified and noncalcified nodules bilaterally, most suggestive of granulomas. 3. Right adrenal mass 2.2 [address] in size. Consider CT abdomen with adrenal gland protocol for further evaluation. Alternatively MRI abdomen could be performed. Electronically authenticated by: PATRICK HART Date: 05/25/2024 23:33 Dictated By: Patrick Hart M.D. Signed By: 05/25/242334 DD/ 32 TD/TT: Chief Security And Safety Officer: Procedure Note Radiology, Radiologist, MD - 05/25/[address] [place] [id number] CT Scan Report Signed Patient: RODDY DIOR EMR#: [id number] : 1960Acct:[id number] Age/Sex: 63 / FADM Date: 05/25/24 Loc: LAB Attending Dr: Maira Rush NP Ordering Physician: Maira Rush NP Date of Service: 05/25/24 Procedure(s): CT chest w con Accession Number(s): [id number] cc: Maira Rush NP The [address] [address] Patient Name: RODDY DIOR MRN: [id number] date: 1960 Sex: F Assigned Patient Location: LAB Current Patient Location: LAB Accession/Order Number: [id number] Exam Date: 05/25/2024 09:40 Report Date: 05/25/2024 23:33 At the request of: MAIRA RUSH Procedure: CT chest w con EXAMINATION: CT chest w con HISTORY: Tobacco User, Lung Nodule, Lymphadenopathy ; follow-up lungnodules COMPARISON: CTA chest 01/03/2024 TECHNIQUE: Multi-planar CT images were obtained without and/or with IV contrast as indicated by examination type. Axial, Coronal, and Sagittal images.Dose reduction techniques were achieved by using automated exposure controland/or adjustment of mA and/or kV according to patient size and/or use ofiterative reconstruction technique. FINDINGS: LUNGS: Several small calcified and noncalcified nodules scattered withinthe lungs. Single larger round nodule within posterior right lung base, 8 mm.No acute infiltrates. Minimal emphysematous changes. PLEURA: No mass, effusion, or pneumothorax. VASCULATURE: No abnormality. ISAAC: No mass or adenopathy. MEDIASTINUM: No mass or adenopathy. CARDIAC: No enlargement or pericardial thickening.. Coronary artery calcifications: AORTA: No aneurysm or dissection. CHEST WALL: No mass or axillary adenopathy. BONES: No bone lesion or fracture. LIMITED ABDOMEN: 2.2 cm heterogeneously enhancing right adrenal mass.Limited images of the upper abdomen. OTHER: Negative. CT/CT chest w con IMPRESSION: 1. Nonspecific, but not overtly suspicious, 8 mm nodule within posteriorright lung base. This is better seen on today's study with interval clearing of infiltrates. I suspect this has remained stable, however, follow-up CTchest in 6 months to document continued stability is recommended. 2. Scattered small calcified and noncalcified nodules bilaterally, most suggestive of granulomas. 3. Right adrenal mass 2.[address] in size. Consider CT abdomen with adrenalgland protocol for further evaluation. Alternatively MRI abdomen could beperformed. Electronically authenticated by: PATRICK HART Date: 05/25/2024 23:33 Dictated By: Patrick Hart M.D. Signed By:05/25/24 8495 DD/ 2333 TD/TT: Chief Security And Safety Officer: us Maira Rsuh GYROSCOPIC INSTRUMENT TESTER [facility] Final Result * ALL C-PEPTIDE (05/25/2024 9:08 AM EST) C-PEPTIDE, SERUM 2.7 1.1 - 4.4 ng/mL [facility] Comment: C-Peptide reference interval is for fasting patients. Performed at: - Lab[address] [id number] Gelatin Maker Utility: Josh Moore PhD, Phone: [phone] 05/25/2024 9:08 AM EST 05/25/2024 9:09 AM EST Narrative [facility] - 05/26/2024 8:09 AM EST us Generic External Data Provider [facility] F inal [facility] documented in this encounter Visit Diagnoses Not on filedocumented in this encounter Care Teams Real Estate Financial Analyst Relationship Specialty Start Date End Date Brandon Monterroso MD [address] [place] [address] PCP - General Family [facility] 06/26/23 Maira Rush NP [address] [place] [address] PCP - [facility] 06/03/24 Maira Rush NP [address] [place] [address] Referring Physician Nurse Practitioner 12/17/22 Chandrika Danielson MA [address] [place] [address] Family Medicine 12/14/24 01/26/25 Lilian Quezada LSW [address] [place] [address] Ring Making Machine Operator Family Medicine 12/14/24 01/26/25 documented as of this encounter
--- OUTSIDE RECORDS SUMMARY | 2025-01-27 00:20 | XMS_ITS | Encounter Summary ---
Author Organization [facility] Address [address] [place] [address] Care Team Providers Care Electrical Products Sales Engineer Name Role Phone Maira Rush SUPERVISOR LONG GOODS Unavailable [phone] Brandon Monterroso MD Primary Care Provider Maira Rush SUPERVISOR LONG GOODS Unavailable [phone] Chandrika Danielson MA Unavailable [phone] Lilian Quezada PR SPECIALIST Unavailable Encounter Details Date Type Department Care Team (Late Contact Info) Description 06/01/2024 Orders Only [facility] [address] [place] [address] Maira Rush, SUPERVISOR LONG GOODS [address] [place] [address] Social History Tobacco Use Types Packs/Day Years [...] Support YOLY Martinez Patient Education [address] [place] [address] Bob Medina RN documented as of this encounter Procedures Procedure Name Priority Date/Time Associated Diagnosis Comments XR CHEST 1 VIEW Routine 06/01/2024 10:11 AM EST SCANNED LABS Routine 06/01/2024 10:02 AM EST documented in this encounter Results * XR chest 1 view (06/01/2024 10:11 AM EST) Anatomical Region Laterality Modality Chest Radiographic Crystal ging Maira Rush SUPERVISOR LONG GOODS IMG XR PROCEDURES Final Result * SCANNED LABS (06/01/2024 10:02 AM EST) Maira Rush SUPERVISOR LONG GOODS LAB CHG PERFORMABLES Final Resu lt documented in this encounter Visit Diagnoses Not on filedocumented in this encounter Care Teams Electrical Products Sales Engineer Relationship Specialty Start Date End Date Brandon Monterroso MD [address] [place] [address] PCP - General Family Medicine 06/26/23 Maira Rush NP [address] [place] [phone] PCP - [facility] 06/03/24 Maria Rush NP [address] [place] [address] Referring Physician Nurse Practitioner 12/17/22 Chandrika Danielson, NORAH [address] [place] [address] Family Medicine 12/14/24 01/26/25 Lilian Quezada LSW [address] [place] [address] Assembly Press Operator Family Medicine 12/14/24 01/26/25 documented as of this encounter
--- OUTSIDE RECORDS SUMMARY | 2025-01-27 00:20 | XMS_ITS ---
Author Organization [facility] Address [address] [place] [address] Care Team Providers Care Soap Drier Operator Name Role Phone Maira Rush POLARITY TESTER Unavailable [phone] Brandon Monterroso MD Primary Care Provider [phone] Maira Rush POLARITY TESTER Unavailable [phone] Emergency Department Transitional Care Management (TCM) Status:Closed (Closed) Start date:01/15/2025 Enrollment date:01/19/2025 Enrollment reason:Identified using hospital discharge data End date:01/19/2025 Close reason:Actively enrolled in CCM Overview Discharged from [facility] ER on 01/15. Please contact within 2 days of discharge for ER HIRAM and schedule a follow-up appointment if needed. Continued Care and Services Coordination
--- OUTSIDE RECORDS SUMMARY | 2025-01-27 00:20 | XMS_ITS | Encounter Summary ---
Author Organization [facility] Address [address] [place] [address] Care Team Providers Care Hydraulic Tester Name Role Phone Maira Rush SOCIAL WORKER CLINICAL Unavailable [phone] Brandon Monterroso MD Primary Care Provider Maira Rush SOCIAL WORKER CLINICAL Unavailable [phone] Chandrika Danielson MA Unavailable [phone] Lilian Quezada PERSONNEL OFFICER Unavailable Encounter Details Date Type Department Care Team (Late Contact Info) Description 07/16/2024 Orders Only [facility] [address] [place] [address] Maira Rush, SOCIAL WORKER CLINICAL [address] [place] [address] Social History Tobacco Use Types Packs/Day Years [...] Support YOLY Martinez Patient Education [address] [place] [address] Bob Medina RN documented as of this encounter Procedures Procedure Name Priority Date/Time Associated Diagnosis Comments SCANNED LABS Routine 07/16/2024 10:30 AM EST documented in this encounter Results * SCANNED LABS (07/16/2024 10:30 AM EST) Maira Rush SOCIAL WORKER CLINICAL LAB CHG PERFORMABLES Final Resu lt documented in this encounter Visit Diagnoses Not on filedocumented in this encounter Care Teams Hydraulic Tester Relationship Specialty Start Date End Date Brandon Monterroso MD [address] [place] [address] PCP - General Family Medicine 06/26/23 Maira Rush NP [address] [place] [address] PCP - [facility] 06/03/24 Maira Rush NP [address] [place] [address] Referring Physician Nurse Practitioner 12/17/22 Chandrika Danielson, NORAH [address] [place] [address] Family Medicine 12/14/24 01/26/25 Lilian Quezada LSW [address] [place] [address] Senior Software Analyst Family Medicine 12/14/24 01/26/25 documented as of this encounter
--- OUTSIDE RECORDS SUMMARY | 2025-01-27 00:20 | XMS_ITS | Clinical Summary ---
Author Organization [facility] Address [address] [place] [address] Care Team Providers Care Checking Department Supervisor Name Role Phone Maira Rush MD Primary Care Provider [phone] Allergies Active Allergy Reactions Criticality Noted Date Comments Ciprofloxacin Other 05/21/2014 Metronidazole Other 05/21/2014 Penicillins Other 05/21/2014 Sulfamethoxazole-Trimethoprim Other 2013 Medications aspirin 81 mg EC tablet aspirin 81 mg tablet,delayed release TAKE 1 TABLET BY MOUTH ONCE DAILY Active budesonide-formote roL (Symbicort) 160-4.5 mcg/actuation inhaler Symbicort 160 mcg-4.5 mcg/actuation HFA aerosol inhaler INHALE TWO (2) PUFFS BY MOUTH TWICE DAILY RINSE MOUTH OUT AFTER EACH USE. Active cholecalciferol (Vitamin D-3) 125 MCG (5000 UT) capsule 1 capsule in the morning. Active insulin glargine (Lantus) 100 unit/mL (3 mL) pen Lantus Solostar U-100 Insulin 100 unit/mL (3 mL) subcutaneous pen Active gabapentin (Neurontin) 600 mg tablet Take by mouth in the morning, at noon, and at bedtime. 06/27/19 23 Active Jardiance 25 mg Take 25 mg by mouth once daily as directed. 06/27/19 23 Active losartan (Cozaar) 100 mg tablet losartan 100 mg tablet TAKE 1 TABLET BY MOUTH DAILY Active pantoprazole (ProtoNix) 40 mg EC tablet pantoprazole 40 mg tablet,delayed release Active potassium chloride ER (Micro-K) 10 mEq ER capsule potassium chloride ER 10 mEq capsule,extended release TAKE 1 CAPSULE BY MOUTH DAILY Active tiotropium (Spiriva Respimat) 2.5 mcg/actuation inhaler Spiriva Respimat 2.5 mcg/actuation solution for inhalation INHALE TWO (2) PUFFS BY MOUTH DAILY Active albuterol 90 mcg/actuation inhaler Ventolin HFA 90 mcg/actuation aerosol inhaler Active PARoxetine (Paxil) 10 mg tablet Take 10 mg by mouth in the morning. 07/26/19 Active insulin aspart (NovoLOG) 100 unit/mL (3 mL) pen 07/26/19 23 Active spironolactone (Aldactone) 25 mg tabletIndications: Edema, unspecified type Take 1 tablet (25 mg) by mouth in the morning and at bedtime. 180 tablet 3 02/01/20 23 Active rosuvastatin (Crestor) 5 mg tabletIndications: Hyperlipidemia, unspecified hyperlipidemia type TAKE 1 TABLET BY MOUTH AT BEDTIME 90 tablet 3 07/25/19 24 Active rivaroxaban (Xarelto) 20 mg tabletIndications: Paroxysmal atrial fibrillation (CMS/HCC) TAKE 1 TABLET BY MOUTH DAILY 30 tablet 10 06/22/19 25 Active furosemide (Lasix) 20 mg tabletIndications: Edema, unspecified type TAKE 1 TABLET BY MOUTH EVERY MORNING 30 tablet 10 06/22/19 25 Active Advair Diskus 500-50 mcg/dose diskus inhaler 01/23/20 24 Active carvedilol (Coreg) 12.5 mg tabletIndications: Primary hypertension Take 1 tablet (12.5 mg) by mouth with breakfast and with evening meal. 180 tablet 3 07/09/19 25 026 Active Active Problems Problem Noted Date Diagnosed Date shelter (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 06/09/2024 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 05/28/2024 Right wrist pain 05/19/2024 CAP (community acquired pneumonia) 04/22/2024 Lung nodule, multiple 04/22/2024 Lymphadenopathy, generalized 04/22/2024 Stage III pressure ulcer of sacral region 2023 Oxygen dependent 03/18/2024 Dizziness and giddiness 02/17/2024 Type 2 diabetes mellitus with hyperglycemia 02/01 Injury of back of head 02/06/2024 Muscle weakness (generalized) 02/06/2024 Other abnormalities of gait and mobility 024 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 01/21/2024 Other thrombophilia 01/21/2024 Hyperglycemia 01/16/2024 Weakness 01/16/2024 Hypokalemia 11/06/2023 Dermatitis 10/16/2023 Overview (01/22/2024): Last Assessment & Plan: Will trial steroid cream for 14 days, if not better contact office Dysuria 10/16/2023 Overview (01/22/2024): Last Assessment & Plan: No acute findings suggestive of UTI on UA dip in the office Drug-induced acute pancreatitis 07/18/2023 Edema of extremities 07/18/2023 Encounter for screening mamm ogram for malignant neoplasm of breast 07/18/2023 Anxiety and depression 07/18/2023 Overview (01/22/2024): Last Assessment & Plan: Will trial an increase in paxil to 20mg daily Fu in 4-6 weeks Called in 30 day supply to [facility] GERD (gastroesophageal reflux disease) Overview (01/22/2024): Last Assessment & Plan: Continue PPI, recommend limiting caffeine and quit smoking HLD (hyperlipidemia) 07/18/2023 Medical non-compliance 07/18/2023 Morbid obesity with body mass index (BMI) of 40. 0 to 49.9 07/18/2023 Neuropathy, diabetic 07/18/2023 Open wound 07/18/2023 Overview (01/22/2024): Last Assessment & Plan: No s/s infection, recommend using diaper barrier ointment on this Osteoporosis 07/18/2023 Seasonal allergies 07/18/2023 Tobacco user 07/18/2023 Overview (01/22/2024): Last Assessment & Plan: The patient has been advised of the risks of continued smoking: stroke, [place], all forms of cancer, lung disease, and . Options for quitting smoking include: cold turkey, hypnosis, acupuncture, nicotine replacement meds (gum, lozenges, and patches), Buproprion, and Varenicline. At this time pt is encouraged to evaluate their goals for wanting to quit smoking, and reach out to provider when ready to start this process Urge and stress incontinence 07/18/2023 Vitamin D deficiency 07/18/2023 COVID 07/18/2023 Type 2 diabetes mellitus with diabetic polyneuro alicia 06/26/2023 Coronary arteriosclerosis 01/08/20232022 Headache 07/02/2022 Palpitations 07/02/2022 Chronic obstructive lung disease 11/09/2020 Chest pain 06/23/2013 Type 2 diabetes mellitus without complication Tobacco dependence syndrome 06/24/2012 Sleep apnea 05/07/2012 Atrial fibrillation 10/17/2011 Essential hypertension 10/17/2011 Syncope and collapse 10/17/2011 Encounters Date Type Department Care Team Description 10/28/2024 Orders Only [facility] [address] [place] [address] Provider, MD Harjinder from Last 3 Months Immunizations Immunization Administration Dates Next Due DTP 11/23/2021 Influenza, injectable, MDCK, preservative free, quadrivalent 03/25/2017 Influenza, injectable, quadrivalent, preservativ e free 04/05/2022 Pneumococcal Polysaccharide PPV23 04/05/2022 Tdap 03/24/2020 Unspecified Sars-Cov-2 Vaccination 09/02/2020 Family History Medical History Relation Name Comments Stroke Father Relation Name Status Comments Father Social History Tobacco Use Types Packs/Day Years Used Date Smoking Tobacco: Some Days Cigarettes Smokeless Tobacco: Never Tobacco Cessation:Ready to Q uit: Not Asked; Counseling Given: Not Answered Alcohol Use Standard Drinks/Week Comments Not Currently 0 (1 standard drink = 0.6 oz pur e alcohol) [place] Safety & Environment Answer Date Rec orded Fear of Current or Ex-Partner Not on file Emotionally Abused Not on file 07/25/2023 Physically Abused Not on file 07/25/2023 Sexually Abused Not on file 07/25/2023 Physically or Sexually Abused Not on file Comments Unknown Sex and Gender Information Value Date Recorded Sex Assigned at Not on file Legal Sex Female 10:24 PM EDT Gender Identity Not on file Sexual Orientation Not on file Last Filed Vital Signs Vital Sign Reading Time Taken Comments Blood Pressure 116/72 07/06/2024 10:45 AM EST Pulse 73 07/06/2024 10:45 AM EST Temperature - - Respiratory Rate - - Oxygen Saturation 94% 07/06/2024 10:45 AM EST Inhaled Oxygen Concentration - - Weight 94.3 kg (208 lb) 07/06/2024 10:45 AM EST Height 167.6 cm (5' 6 ) 07/06/2024 10:45 AM EST Body Mass Index 33.57 07/06/2024 10:45 AM EST Plan of Treatment Health Maintenance Due Date Last Done Comments CT Colonography 1959 Colonoscopy 1959 Colorectal Cancer Screening 1959 FIT-DNA 1959 FIT 1959 FOBT 1959 Medicare Initial Physical (IPPE) 1959 Sigmoidoscopy 1959 Diabetes: Retinopathy Screening 1969 Depression Screening 1971 Zoster Vaccines (1 of 2) 1978 Pap Smear 1980 Cervical Cancer Screening 1989 HPV/Cotest 1989 Mammogram 1999 COVID-19 Vaccine (3 - Mixed Product risk series) 09/30/2020 09/02/2020, 09/02/2020 Pneumococcal Vaccine: 50+ Years (2 of 2 - PCV) 04/05/2023 04/05/2022 Fall Risk Screening 2024 Diabetes: Hemoglobin A1C 07/23/2024 04/22/2024, 05/0 12/2018 Influenza Vaccine (#1) 2025 , 06/25/2023, 04/05/2022, Additional history exists Diabetes: Urine Protein Screening 05/25/2025 05/25/2024 Adult Tetanus 11/24/2031 11/23/2021, 03/24/2020 HIB Vaccines Aged Out No longer eligi ble based on patient's age to complete this topic HPV Vaccines Aged Out No longer eligi ble based on patient's age to complete this topic IPV Vaccines Aged Out No longer eligi ble based on patient's age to complete this topic Meningococcal B Vaccine Aged Out No l onger eligible based on patient's age to complete this topic Meningococcal Vaccine Aged Out No kapil mary eligible based on patient's age to complete this topic Rotavirus Vaccines Aged Out No longer eligible based on patient's age to complete this topic Insurance [facility] MEDICAID Care Teams Checking Department Supervisor Relationship Specialty Start Date End Date Maira Rush MD [address] [place] [address] PCP - General 07/02/22
--- OUTSIDE RECORDS SUMMARY | 2025-01-27 00:20 | XMS_ITS | Encounter Summary ---
Author Organization [facility] Address [address] [place] [address] Care Team Providers Care Property Clerk Name Role Phone Maira Rush FULL STACK NET DEVELOPER Unavailable [phone] Brandon Monterroso MD Primary Care Provider [phone] Maira Rush FULL STACK NET DEVELOPER Unavailable [phone] Chandrika Danielson MA Unavailable [phone] Lilian Quezada LOGISTICS ENGINEERING MANAGER Unavailable Reason for Visit * Reason Comments Med Refill Encounter Details Date Type Department Care Team (Late st Contact Info) Description 01/14/2025 Refill [facility] [address] [place] [address] Maira Rush, ARLEN [address] [place] [address] Vitamin D deficiency (Primary Dx); Primary hypertension ; Edema of extremities; COPD mixed type (HCC); Type 2 diabetes mellitus with diabetic neuropathy, with long-term current use of insulin ([facility]) Social History Tobacco Use Types Packs/Day Years [...] Never 12/14/2024 How often do you attend temple or rastafarian serv ices? Never 12/14/2024 Do you belong to any clubs o r organizations such as temple groups, unions, fraternal or athletic groups, or [...] Recorded Patient Health Questionnaire-2 Score 0 10/16/2023 [facility] - Occupational Stress [...] any time in the past 12 m [facility], were you homeless or living in a skilled nursing (including now)? No 12/14/2024 Comments Unknown Sex [...] Support YOLY Martinez Patient Education [address] [place] [address] Bob Medina RN documented as of this encounter Visit Diagnoses Diagnosis Vitamin D deficiency- Primary Primary hypertension Unspecified essential hypertension Edema of extremities Edema COPD mixed type (HCC) Type 2 diabetes mellitus with diabetic neuropathy, with long-term current use of insulin (HCC) documented in this encounter Care Teams Property Clerk Relationship Specialty Start Date End Date Brandon Monterroso MD [address] [place] [address] PCP - General Family [facility] 06/26/23 Maira Rush NP [address] [place] [address] PCP - [facility] 06/03/24 Maira Rush NP [address] [place] [address] Referring Physician Nurse Practitioner 12/17/22 Chandrika Danielson, [place] [address] [place] [address] Family Medicine 12/14/24 01/26/25 Lilian Quezada, MIAH [address] [place] [address] Conveyor Worker Family Medicine 12/14/24 01/26/25 documented as of this encounter
--- OUTSIDE RECORDS SUMMARY | 2025-01-27 00:20 | XMS_ITS | Encounter Summary ---
Author Organization [facility] Address [address] [place] [address] Care Team Providers Care Car Attendant Name Role Phone Maira Rush SUPERVISOR CORRESPONDENCE SECTION Unavailable [phone] Brandon Monterroso MD Primary Care Provider Maira Rush SUPERVISOR CORRESPONDENCE SECTION Unavailable Chandrika Danielson MA Unavailable [phone] Lilian Quezada PHOTOVOLTAIC FABRICATION TECHNICIAN Unavailable Reason for Visit * Reason Comments Med Refill Encounter Details Date Type Department Care Team (Late Contact Info) Description 07/25/2024 Refill [facility] [address] [place] [address] Maira Rush, SUPERVISOR CORRESPONDENCE SECTION [address] [place] [address] Diarrhea, unspecified type Social History Tobacco Use Types Packs/Day Years [...] Description 02/11/2025 11:30 AM EDT Clinical Support NOMChacho Gonzales Patient Education [address] [place] [phone] Bob Medina, BARI documented as of this encounter Visit Diagnoses Diagnosis Diarrhea, unspecified type documented in this encounter Care Teams Car Attendant Relationship Specialty Start Date End Date Brandon Monterroso MD [address] [place] [address] PCP - General Family [facility] 06/26/23 Maira Rush, ARLEN [address] [place] [address] PCP - [facility] 06/03/24 Maira Rush, ARLEN [address] [place] [address] Referring Physician Nurse Practitioner 12/17/22 Chandrika Danielson, [place] [address] [place] [address] Family Medicine 12/14/24 01/26/25 Lilian Quezada, MIAH [address] [facility] [place] [address] Cap Sewer Family Medicine 12/14/24 01/26/25 documented as of this encounter
--- OUTSIDE RECORDS SUMMARY | 2025-01-27 00:20 | XMS_ITS ---
Author Organization [facility] Address [address] [place] [address] Care Team Providers Care Desizing Machine Back Tender Name Role Phone Maira Rush POST SPLITTER Unavailable [phone] Brandon Monterroso MD Primary Care Provider [phone] Maira Ruhs POST SPLITTER Unavailable [phone] Emergency Department Transitional Care Management (TCM) Status:Closed (Closed) Start date:01/09/2025 Enrollment date:01/13/2025 Enrollment reason:Identified using hospital discharge data End date:01/13/2025 Close reason:Actively enrolled in CCM Overview Discharged from [facility] ER on 01/09. Please contact within 2 days of discharge for ERTOC and schedule a follow-up appointment if needed. Continued Care and Services Coordination
--- OUTSIDE RECORDS SUMMARY | 2025-01-27 00:20 | XMS_ITS | Encounter Summary ---
Author Organization [facility] Address [address] [facility] [place] [address] Care Team Providers Care Paid Search Analyst Name Role Phone Maira Rush DIVING SUPERVISOR Unavailable [phone] Brandon Monterroso MD Primary Care Provider Maira Rush DIVING SUPERVISOR Unavailable [phone] Chandrika Danielson MA Unavailable [phone] Lilian Quezada SATELLITE SPECIALIST Unavailable Encounter Details Date Type Department Care Team (Late Contact Info) Description [facility]/14[facility]2025 [facility] [address] [place] [address] Maira Rush NP [address] [place] [address] Social History Tobacco Use Types Packs/Day Years [...] Never 12/14/2024 How often do you attend congregational or nondenominational serv ices? Never 12/14/2024 Do you belong to any clubs o r organizations such as congregational groups, unions, fraternal or athletic groups, or [...] Recorded Patient Health Questionnaire-2 Score 0 10/16/2023 [facility] - Occupational Stress Questionnaire [...] any time in the past 12 m [facility], were you homeless or living in a [...] Support YOLY Gonzales Patient Education [address] [place] [address] Bob Medina RN documented as of this encounter Visit Diagnoses Not on filedocumented in this encounter Care Teams Paid Search Analyst Relationship Specialty Start Date End Date Brandon Monterroso MD [address] [place] [address] PCP - General Family Medicine 06/26/23 Maira Rush NP [address] [place] [address] PCP - [facility] 06/03/24 Maira Rush NP [address] [place] [address] Referring Physician Nurse Practitioner 12/17/22 Chandrika Danielson, [place] [address] [place] [address] Family Medicine 12/14/24 01/26/25 Lilian Quezada, MIAH [address] [place], [place] [id number] Caustic Purification Operator Family Medicine 12/14/24 01/26/25 documented as of this encounter
--- OUTSIDE RECORDS SUMMARY | 2025-01-27 00:20 | XMS_ITS | Encounter Summary ---
Author Organization [facility] Address [address] [place] [address] Care Team Providers Care Creative Assistant Name Role Phone Maira Rush COLLECTIONS AND ARCHIVES DIRECTOR Unavailable [phone] Brandon Monterroso MD Primary Care Provider Maira Rush COLLECTIONS AND ARCHIVES DIRECTOR Unavailable [phone] Chandrika Danielson MA Unavailable [phone] Lilian Quezada TECHNICIAN SEMICONDUCTOR DEVELOPMENT Unavailable Encounter Details Date Type Department Care Team (Late Contact Info) Description 05/11/2024 Orders Only [facility] [address] [place] [address] Maira Rush, COLLECTIONS AND ARCHIVES DIRECTOR [address] [place] [address] Social History Tobacco Use Types Packs/Day Years [...] Support YOLY Martinez Patient Education [address] [place] [address] Bob Medina RN documented as of this encounter Procedures Procedure Name Priority Date/Time Associated Diagnosis Comments XR FINGERS 2+ VIEWS RIGHT Routine 05/11/2024 3:30 PM EST documented in this encounter Results * XR fingers 2+ views right (05/11/2024 3:30 PM EST) Anatomical Region Laterality Modality Upper Extremities, Fingers Right Radio graphic Imaging us Maira Rush COLLECTIONS AND ARCHIVES DIRECTOR IMG XR PROCEDURES Final Result documented in this encounter Visit Diagnoses Not on filedocumented in this encounter Care Teams Creative Assistant Relationship Specialty Start Date End Date Brandon Monterroso MD [address] [place] [address] PCP - General Family Medicine 06/26/23 Maira Rush NP [address] [place] [address] PCP - [facility] 06/03/24 Maira Rush NP [address] [place] [address] Referring Physician Nurse Practitioner 12/17/22 Chandrika Danielson, NORAH [address] [place] [address] Family Medicine 12/14/24 01/26/25 Lilian Quezada LSW [address] [place] [address] Divisional Storekeeper Family Medicine 12/14/24 01/26/25 documented as of this encounter
--- OUTSIDE RECORDS SUMMARY | 2025-01-27 00:20 | XMS_ITS | Encounter Summary ---
Author Organization [facility] Address [address] [place] [address] Care Team Providers Care Napper Runner Name Role Phone Maira Rush PROPERTY APPRAISER Unavailable [phone] Brandon Monterroso MD Primary Care Provider Maira Rush PROPERTY APPRAISER Unavailable [phone] Chandrika Danielson MA Unavailable [phone] Lilian Quezada ORIENTATION AND MOBILITY INSTRUCTOR Unavailable Encounter Details Date Type Department Care Team (Late Contact Info) Description 01/06/2024 Orders Only [facility] [address] [facility] [address] [place] [address] Murtaza Crenshaw MD [address] [place] [address] -[phone] (Work) Social History Tobacco Use Types Packs/Day Years [...] Support YOLY Martinez Patient Education [address] [place] [address] Bob Medina RN documented as of this encounter Procedures Procedure Name Priority Date/Time Associated Diagnosis Comments CT ANGIO CHEST W CONT(INCL WO) Routine 01/03/2024 4:[address] CERVICAL SPINE WO IV CONTRAST Routine 01/03/2024 4:[address] HEAD OR BRAIN W/ & W/O CONTRAST Routine 01/03/2024 4:03 PM EDT documented in this encounter Results * CT ANGIO CHEST W CONT(INCL WO) (01/03/2024 4:07 PM EDT) Anatomical Region Laterality Modality Radiographic Crystal ging us Murtaza Crenshaw MD IMG XR PROCEDURES Final Result * CT cervical spine wo IV contrast (01/03/2024 4:05 PM EDT) Anatomical Region Laterality Modality Spine, C-spine Computed Tomogra phy us Murtaza Crenshaw MD IMG CT PROCEDURES Final Result * CT HEAD OR BRAIN W/ & W/O CONTRAST (01/03/2024 4:03 PM EDT) Anatomical Region Laterality Modality Radiographic Crystal ging us Murtaza Crenshaw MD IMG XR PROCEDURES Final Result documented in this encounter Visit Diagnoses Not on filedocumented in this encounter Care Teams Napper Runner Relationship Specialty Start Date End Date Brandon Monterroso MD [address] [place] [address] PCP - General Family Medicine 06/26/23 Maira Rush PROPERTY APPRAISER [address] [place] [address] PCP - [facility] 06/03/24 Maira Rush NP [address] [place] [address] Referring Physician Nurse Practitioner 12/17/22 Chandrika Danielson, NORAH [address] [place] [address] Family Medicine 12/14/24 01/26/25 Lilian Quezada, MIAH [address] [place] [address] Solar Mechanical Engineer Family Medicine 12/14/24 01/26/25 documented as of this encounter
--- OUTSIDE RECORDS SUMMARY | 2025-01-27 00:21 | XMS_ITS | Encounter Summary ---
Author Organization [facility] Address [address] [place] [address] Care Team Providers Care Wafer Abrading Machine Tender Name Role Phone Maira Rush NP Unavailable [phone] Brandon Monterroso MD Primary Care Provider [phone] Maira Rush POWER TRANSFORMER REPAIR SUPERVISOR Unavailable [phone] Chandrika Danielson MA Unavailable [phone] Lilian Quezada YIELD ANALYST Unavailable Encounter Details Date Type Department Care Team (Late st Contact Info) Description 01/11/2025 Patient Outreach [facility] [address] [place] [address] Lilian Quezada LSW [address], [place] [id number] Social History Tobacco Use Types Packs/Day Years [...] Never 12/14/2024 How often do you attend bahai or yazidism serv ices? Never 12/14/2024 Do you belong to any clubs o r organizations such as bahai groups, unions, [employer]iTraff Technology or athletic groups, or school groups? No [...] Recorded Patient Health Questionnaire-2 Score 0 10/16/2023 [facility] of Occupat ional Health - Occupational [...] any time in the past [address] [facility], were you homeless or living in a detention (including now)? No 12/14/2024 Comments Unknown Sex and Gender Information Value Date Recorded Sex Assigned at Not on file Legal Sex Female 7:18 PM EDT Gender Identity Not on file Sexual Orientation Not on file documented as of this encounter Progress Notes * MIAH Storm - 01/11/2025 2:59 PM EDT <January 11, 2025, 14:59 - MIAH Storm> Requested full ED report from [facility] <January 12, 2025, 12:58 - MIAH Storm> Attempted call to pt, LM requesting call back <January 13, 2025, 10:57 - MIAH Sotrm> 2nd attempt to call pt. No answer and unable to leave message. ED TCM complete based on discharge records. Flowsheet Row Patient Outreach from 01/11/2025 in [facility] with MIAH Storm Hospital Information ED, Hospital or Care Home Facility Discharge? ED Patient has been contacted within 2 days of being seen in the ED No Have two attempts been made, within 2 days of being seen in the ED, to contact the patient? Yes Diagnosis atypical chest pain Discharge Date 01/09/25 Discharged To: Home Setting Discharge Hospital [facility] Engagement Admission Date 01/09/25 Medications Appointments Self Management Patient Teaching Wrap Up Wrap Up Additional Comments Presented to ED for retrosternal pain, epigastric pain. Pt treated for hyperglycemia with IV insulin, brought glucose down to 325. Also treated for hypokalemia with oral potassium. Chest XR completed. Pt discharged home with no med changes. Unable to reach pt for TCM. documented in this encounter Plan of Treatment Upcoming Encounters Date Type Department Care Team (Late st Contact Info) Description 02/11/2025 11:30 AM EDT Clinical Support YOLY Gonzales Patient Education [address] [place] [place] [address] Bob Medina RN documented as of this encounter Visit Diagnoses Diagnosis Type 2 diabetes mellitus with hyperglycemia, with long-term current use of insulin (HCC)- Primary Essential (primary) hypertension Unspecified essential hypertension documented in this encounter Care Teams Wafer Abrading Machine Tender Relationship Specialty Start Date End Date Brandon Monterroso MD [address] [place] [address] PCP - General Family Medicine 06/26/23 Maira Rush NP [address] [place] [address] PCP - [facility] 06/03/24 Maira Rush NP [address] [place] [address] Referring Physician Nurse Practitioner 12/17/22 Chandrika Danielson MA [address] [place] [address] Family Medicine 12/14/24 01/26/25 Lilian Quezada MIAH [address] [place] [address] Accounting Machine Operator Family Medicine 12/14/24 01/26/25 documented as of this encounter
--- OUTSIDE RECORDS SUMMARY | 2025-01-27 00:21 | XMS_ITS | Encounter Summary ---
Author Organization [facility] Address [address] [place] [address] Care Team Providers Care Washerette Machine Operator Name Role Phone Maira Rush COAGULATING DRYING SUPERVISOR Unavailable [phone] Brandon Monterroso MD Primary Care Provider Maira Rush COAGULATING DRYING SUPERVISOR Unavailable [phone] Chandrika Danielson MA Unavailable [phone] Lilian Quezada AUTOMOTIVE EXHAUST EMISSIONS TECHNICIAN Unavailable Encounter Details Date Type Department Care Team (Late Contact Info) Description 01/11/2025 [facility] [address] [place] [address] Maira Rush NP [address] [place] [address] Social History Tobacco Use Types Packs/Day Years [...] Never 12/14/2024 How often do you attend alevism or orthodox serv ices? Never 12/14/2024 Do you belong to any clubs o r organizations such as alevism groups, unions, fraternal or athletic groups, or [...] Recorded Patient Health Questionnaire-2 Score 0 10/16/2023 [facility] - Occupational Stress Questionnaire [...] any time in the past 12 m [facility], were you homeless or living in a long term (including now)? No 12/14/2024 Comments Unknown Sex [...] Support YOLY Gonzales Patient Education [address] [place] [address] Bob Medina RN documented as of this encounter Visit Diagnoses Not on filedocumented in this encounter Care Teams Washerette Machine Operator Relationship Specialty Start Date End Date Brandon Monterroso MD [address] [place] [address] PCP - General Family Medicine 06/26/23 Maira Rush NP [address] [place] [address] PCP - [facility] 06/03/24 Maira Rush NP [address] [place] [address] Referring Physician Nurse Practitioner 12/17/22 Chandrika Danielson, [place] [address] [place] [address] Family Medicine 12/14/24 01/26/25 Lilian Quezada, MIAH [address], [place] [phone] Greige Goods Examiner Family Medicine 12/14/24 01/26/25 documented as of this encounter
--- OUTSIDE RECORDS SUMMARY | 2025-01-27 00:21 | XMS_ITS | Encounter Summary ---
Author Organization [facility] Address [address] [place] [address] Care Team Providers Care Cuff Matcher Name Role Phone Maira Rush NP Unavailable [phone] Brandon Monterroso MD Primary Care Provider [phone] Maira Rush VULCANIZING MACHINE OPERATOR Unavailable [phone] Chandrika Danielson MA Unavailable [phone] Lilian Quezada GENERATOR REPAIRER Unavailable Encounter Details Date Type Department Care Team (Late st Contact Info) Description 01/19/2025 Patient Outreach [facility] [address] [place] [address] Lilian Quezada LSW [address] [place], [place] [phone] Social History Tobacco Use Types Packs/Day Years [...] Never 12/14/2024 How often do you attend muslim or sikh serv ices? Never 12/14/2024 Do you belong to any clubs o r organizations such as muslim groups, unions, fraSportcut or athletic groups, or school groups? No [...] Recorded Patient Health Questionnaire-2 Score 0 10/16/2023 [facility] of Occupat ional Health - Occupational Stress [...] any time in the past 12 m [facility], were you homeless or living in a residential (including now)? No 12/14/2024 Comments Unknown Sex and Gender Information Value Date Recorded Sex Assigned at Not on file Legal Sex Female 7:18 PM EDT Gender Identity Not on file Sexual Orientation Not on file documented as of this encounter Progress Notes * MIAH Storm - 01/19/2025 10:30 AM EDT <January 19, 2025, 10:30 - MIAH Storm> Spoke to pt. She has not heard from [facility] yet. Her friend [facility] for her and they have a waiting list, and will not accept her cat. Pt is still in her current apartment, but was served papers and has court hearing 02/16. Reviewed that MIAH will no longer be working with PCP office after 01/26. Confirmed pt still has residential ph#. documented in this encounter Plan of Treatment Upcoming Encounters Date Type Department Care Team (Late st Contact Info) Description 02/11/2025 11:30 AM EDT Clinical Support YOLY Jeff Davis Patient Education [address] [place] [address] Bob Medina RN documented as of this encounter Visit Diagnoses Diagnosis Type 2 diabetes mellitus with hyperglycemia, with long-term current use of insulin (HCC)- Primary Essential (primary) hypertension Unspecified essential hypertension documented in this encounter Care Teams Cuff Matcher Relationship Specialty Start Date End Date Brandon Monterroso MD [address] [place] [address] PCP - General Family Medicine 06/26/23 Maira Rush NP [address] [place] [address] PCP - [facility] 06/03/24 Maira Rush NP [address] [place] [address] Referring Physician Nurse Practitioner 12/17/22 Chandrika Danielson, NORAH [address] [place] [address] Family Medicine 12/14/24 01/26/25 Lilian Quezada, MIAH [address] [place] [address] Merchant Mariner Family Medicine 12/14/24 01/26/25 documented as of this encounter
--- OUTSIDE RECORDS SUMMARY | 2025-01-27 00:21 | XMS_ITS | Encounter Summary ---
Author Organization [facility] Address [address] [place] [address] Care Team Providers Care Business Excellence Manager Name Role Phone Maira Rush GRAPE CUTTER Unavailable [phone] Brandon Monterroso MD Primary Care Provider Maira Rush GRAPE CUTTER Unavailable [phone] Chandrika Danielson MA Unavailable [phone] Lilian Quezada SERVICE DEPARTMENT MANAGER Unavailable Reason for Visit * Reason Comments Med Refill Encounter Details Date Type Department Care Team (Late st Contact Info) Description 10/18/2023 Refill [facility] [address] [place] [address] Maira Rush, ARLEN [address] [place] [address] Dermatitis Social History Tobacco Use Types Packs/Day Years Used Date Smoking Tobacco: Former Cigarettes 0.5 39.8 1 98 - 04/2022 Alcohol Use Standard Drinks/Week Comments [...] encounter Miscellaneous Notes * Telephone Encounter - PRESTON ELAINE - 10/22/2023 5:00 PM EDT pt called asking for a prescription for her and for the disability plaque for their vehicle * Telephone Encounter - CHELE PRESTON - 10/21/2023 12:51 PM EDT pt called on saturday not realizing that the new prescriptions were sent to her mailorder, she did end up getting the atb she is still waiting to get the cream, but she is having frequent loose stools since starting the atb. documented in this encounter Plan of Treatment Upcoming Encounters Date Type Department Care Team (Late st Contact Info) Description 02/11/2025 11:30 AM EDT Clinical Support YOLY Gonzales Patient Education [address] [place] [address] Bob Medina RN documented as of this encounter Visit Diagnoses Diagnosis Dermatitis Contact dermatitis and other eczema, due to unspecified cause documented in this encounter Care Teams Business Excellence Manager Relationship Specialty Start Date End Date Brandon Monterroso MD [address] [place] [address] PCP - General Family Medicine 06/26/23 Maira Rush NP [address] [place] [address] PCP - [facility] 06/03/24 Maira Rush NP [address] [place] [address] Referring Physician Nurse Practitioner 12/17/22 Chandrika Danielson MA [address] [place] [address] Family Medicine 12/14/24 01/26/25 Lilian Quezada MIAH [address] [place] [address] Landing Signal Officer Family Medicine 12/14/24 01/26/25 documented as of this encounter
--- OUTSIDE RECORDS SUMMARY | 2025-01-27 00:21 | XMS_ITS | Encounter Summary ---
Author Organization [facility] Address [address] [place] [address] Care Team Providers Care Machinist Wood Name Role Phone Maira Rush MD Primary Care Provider [phone] Reason for Visit * Reason Comments Med Refill Encounter Details Date Type Department Care Team (Late st Contact Info) Description 07/24/2023 Refill [facility] [address] [place] [address] Amaris Comer, POURED CONCRETE WALL TECHNICIAN [address] [place] [address] Hyperlipidemia, unspecified hyperlipidemia type; Paroxysmal atrial fibrillation (CMS/HCC) Social History Tobacco Use Types Packs/Day Years Used Date Smoking Tobacco: Some Days Cigarettes Smokeless Tobacco: Never Alcohol Use Standard Drinks/Week [...] on file documented as of this encounter Visit Diagnoses Diagnosis Hyperlipidemia, unspecified hyperlipidemia type Paroxysmal atrial fibrillation (CMS/HCC) Atrial fibrillation documented in this encounter Care Teams Machinist Wood Relationship Specialty Start Date End Date Maira Rush MD [address] [place] [address] PCP - General 07/02/22 documented as of this encounter
--- OUTSIDE RECORDS SUMMARY | 2025-01-27 00:21 | XMS_ITS | Encounter Summary ---
Author Organization [facility] Address [address] [place] [address] Care Team Providers Care Network Support Manager Name Role Phone Maira Rush MD Primary Care Provider [phone] Reason for Visit * Reason Comments Med Refill Encounter Details Date Type Department Care Team (Late st Contact Info) Description 12/25/[address] [facility] [address] [place] [address] Amaris Comer, DRY KILN LOADER [address] [place] [address] Edema, unspecified type Social History Tobacco Use Types Packs/Day Years Used Date Smoking Tobacco: Some Days Cigarettes Smokeless Tobacco: Never Alcohol Use Standard Drinks/Week Comments Not Currently 0 (1 standard drink = 0.6 oz pur e alcohol) Comments Unknown Sex and Gender Information Value Date Recorded Sex Assigned at Not on file Legal Sex Female 10:24 PM EDT Gender Identity Not on file Sexual Orientation Not on file documented as of this encounter Plan of Treatment Not on file documented as of this encounter Visit Diagnoses Diagnosis Edema, unspecified type documented in this encounter Care Teams Network Support Manager Relationship Specialty Start Date End Date Maira Rush MD [address] [place] [address] PCP - General 07/02/22 documented as of this encounter
--- OUTSIDE RECORDS SUMMARY | 2025-01-27 00:21 | XMS_ITS | Encounter Summary ---
Author Organization [facility] Address [address] [place] [address] Care Team Providers Care Clinical Pharmacologist Name Role Phone Maira Rush NP Unavailable [phone] Brandon Monterroso MD Primary Care Provider [phone] Maira Rush FRONT DESK PERSON Unavailable [phone] Chandrika Danielson MA Unavailable [phone] Lilian Quezada FOSTER WINDER Unavailable Encounter Details Date Type Department Care Team (Late Contact Info) Description 01/11/2025 Orders Only [facility] [address] [place] [phone] Social History Tobacco Use Types Packs/Day Years [...] Never 12/14/2024 How often do you attend congregation or gnosticism serv ices? Never 12/14/2024 Do you belong to any clubs o r organizations such as congregation groups, unions, fraDhir Diamonds or athletic groups, or school groups? No [...] Recorded Patient Health Questionnaire-2 Score 0 10/16/2023 [facility] of Occupat ional Health - Occupational Stress [...] any time in the past 12 m [facility], were you homeless or living in a fci (including now)? No 12/14/2024 Comments Unknown Sex [...] Support YOLY Gonzales Patient Education [address] [place] [address] Bob Medina RN documented as of this encounter Procedures Procedure Name Priority Date/Time Associated Diagnosis Comments XR CHEST 1 VIEW Routine 01/11/2025 1:54 PM EDT documented in this encounter Results * XR chest 1 view (01/11/2025 1:54 PM EDT) Anatomical Region Laterality Modality Chest Radiographic Crystal ging [facility] IMG XR PROCEDURES Final Result documented in this encounter Visit Diagnoses Not on filedocumented in this encounter Care Teams Clinical Pharmacologist Relationship Specialty Start Date End Date Brandon Monterroso MD [address] [place] [address] PCP - [facility] 06/26/23 Maira Rush NP [address] [place] [address] PCP - [facility] 06/03/24 Maira Rush NP [address] [place] [address] Referring Physician Nurse Practitioner 12/17/22 Chandrika Danielson, NORAH [address] [place] [address] Family Medicine 12/14/24 01/26/25 Lilian Quezada, F[address]ER WINDER [address] [facility] [place] [address] Steam Tunnel Feeder Family Medicine 12/14/24 01/26/25 documented as of this encounter
--- OUTSIDE RECORDS SUMMARY | 2025-01-27 00:21 | XMS_ITS | Encounter Summary ---
Author Organization [facility] Address [address] [place] [address] Care Team Providers Care Site Lead Name Role Phone Maira Rush NP Unavailable [phone] Brandon Monterroso MD Primary Care Provider [phone] Maira Rush SOLICITOR PATENT Unavailable [phone] Chandrika Danielson MA Unavailable [phone] Lilian Quezada PORTABLE CANTEEN OPERATOR Unavailable Encounter Details Date Type Department Care Team (Late st Contact Info) Description 01/18/2025 Patient Outreach [facility] [address] [place] [address] Lilian Quezada LSW [address] [place], [place] [phone] Social History Tobacco Use Types Packs/Day Years [...] Never 12/14/2024 How often do you attend orthodoxy or jain serv ices? Never 12/14/2024 Do you belong to any clubs o r organizations such as orthodoxy groups, unions, fraWeddington Way or athletic groups, or school groups? No [...] Recorded Patient Health Questionnaire-2 Score 0 10/16/2023 [facility] of Occupat ional Health - [...] any time in the past 12 m [facility], were you homeless or living in a penitentiary (including now)? No 12/14/2024 Comments Unknown Sex and Gender Information Value Date Recorded Sex Assigned at Not on file Legal Sex Female 7:18 PM EDT Gender Identity Not on file Sexual Orientation Not on file documented as of this encounter Progress Notes * MIAH Storm - 01/18/2025 2:15 PM EDT Images from the original note were not included. Flowsheet Row Patient Outreach from 01/18/[address] [facility] with Lilian MIAH Quezada Hospital Information ED, Hospital or Alf Facility Discharge? ED Patient has been contacted within 2 days of being seen in the ED Yes Diagnosis Syncope, unspecified syncope type Discharge Date 01/15/25 Discharged To: Home Setting Discharge [facility] Engagement Call Start Time 1012 Admission Date 01/15/25 Medications Discharge medications reviewed and reconciled from hospital? Not applicable Does the patient have all medications ordered at discharge? Not applicable Prescription Comments no new prescriptions Medication Comments admits to not taking insulin consistently, BS was almost 500 when EMS checked Appointments Does the patient have a primary care provider? Yes [Maira Rush SOLICITOR PATENT] Nursing Interventions Patient declined follow up appointment w/ PCP Self Management Patient Teaching Does the patient have access to their discharge instructions? Yes Nursing Interventions Reviewed instructions with patient What is the patient's perception of their health status since discharge? New symptoms unrelated to diagnosis [No more dizziness or lightheadedness since day of ED visit. Saturday stepped on an old car emblem and punctured bottom of her foot. Today toe is swelling and red on top] Wrap Up Wrap Up Additional Comments Presented to ED by EMS due to unresponsive episode. Pt passed out whileleaning against car and smoking a cigarette. Was with friends and they called EMS. Per pt BS was almost 500. Labs, urine, and CT checked in ED. Treated with insulin, potassium chloride, and fluids Call End Time 1025 Spoke to pt, ED TCM complete. She notes that BS was elevated when she had syncopal episode, and admits poor compliance with insulin. Enc pt take insulin as ordered. Denies having any dizziness or light-headedness since syncopal episode. Pt declines follow up appt. Pt reports Saturday she stepped on an old car emblem that was on her floor. The metal punctured her foot. She states it wasn't farhad. Reviewed chart, per immunization log she had DTP vaccine in 2021. Her toe is swelling and is turning red on top. Maira does not have any open appts the rest of this week. Advised would discuss with provider and call back. * MIAH Storm - 01/18/2025 2:15 PM EDT <January 19, 2025, 16:00 - MIAH Storm> Discussed with Chandrika Danielson MA. Returned call to pt and recommended she go to ER to have foot evaluated. Concerned there could be something stuck in foot. Pt unsure is she will be able to get a ride, and if EMS takes her she is unsure about ride home. Advised hospital should be able to assist withthis, or she can contact her [employer] for transportation. documented in this encounter Plan of Treatment Upcoming Encounters Date Type Department Care Team (Late st Contact Info) Description 02/11/2025 11:30 AM EDT Clinical Support YOLY Gonzales Patient Education [address] [facility] [place] [address] Bob Medina RN documented as of this encounter Visit Diagnoses Diagnosis Type 2 diabetes mellitus with hyperglycemia, with long-term current use of insulin (HCC)- Primary Essential (primary) hypertension Unspecified essential hypertension documented in this encounter Care Teams Site Lead Relationship Specialty Start Date End Date Brandon Monterroso MD [address] [place] [address] PCP - General Family Medicine 06/26/23 Maira Rush NP [address] [place] [address] PCP - [facility] 06/03/24 Maira Rush NP [address] [place] [address] Referring Physician Nurse Practitioner 12/17/22 Chandrika Danielson, [place] [address] [place] [address] Family Medicine 12/14/24 01/26/25 Lilian Quezada LSW [address] [facility] [place] [address] Sales Ledger Administrator Family Medicine 12/14/24 01/26/25 documented as of this encounter
--- OUTSIDE RECORDS SUMMARY | 2025-01-27 00:21 | XMS_ITS | Encounter Summary ---
Author Organization [facility] Address [address] [place] [address] Care Team Providers Care Commercial Tire Service Technician Name Role Phone Maira Rush MD Primary Care Provider Reason for Visit * Reason Comments Med Refill Encounter Details Date Type Department Care Team (Late st Contact Info) Description 05/23/2023 Refill [facility] [address] [place] [address] Amaris Comer, BOOMSWING OPERATOR [address] [place] [address] Primary hypertension Social History Tobacco Use Types Packs/Day Years [...] as of this encounter Visit Diagnoses Diagnosis Primary hypertension Unspecified essential hypertension documented in this encounter Care Teams Commercial Tire Service Technician Relationship Specialty Start Date End Date Maira Rush MD [address] [place] [address] PCP - General 07/02/22 documented as of this encounter
--- OUTSIDE RECORDS SUMMARY | 2025-01-27 00:21 | XMS_ITS | Encounter Summary ---
Author Organization [facility] Address [address] [place] [address] Care Team Providers Care Core Stripper Name Role Phone Maira Rush DIRECTOR MUSEUM OR [employer]OO Unavailable [phone] Brandon Monterroso MD Primary Care Provider [phone] Maira Rush DIRECTOR [employer] Unavailable [phone] Chandrika Danielson MA Unavailable [phone] Lilian Quezada SDE Unavailable [phone] Reason for Visit * Reason Comments Med Refill Encounter Details Date Type Department Care Team (Late st Contact Info) Description 01/14/2025 Refill [facility] [address] [place] [phone] Felton Gilman MD [address] [place] [address] Type 2 diabetes mellitus with hyperglycemia, with long-term current use of insulin (HCC) Social History Tobacco Use Types Packs/Day Years [...] Never 12/14/2024 How often do you attend zoroastrianism or rastafarian serv ices? Never 12/14/2024 Do you belong to any clubs o r organizations such as zoroastrianism groups, unions, fraternal or athletic groups, or [...] Recorded Patient Health Questionnaire-2 Score 0 10/16/2023 [facility] - Occupational [...] any time in the past 12 m [facility], were you homeless or living in a prison (including now)? No 12/14/2024 Comments Unknown Sex and Gender Information Value Date Recorded Sex Assigned at Not on file Legal Sex Female 7:18 PM EDT Gender Identity Not on file Sexual Orientation Not on file documented as of this encounter Miscellaneous Notes * Telephone Encounter - Eli Carmona LPN - 01/15/2025 8:28 AM EDT MEDICATION SENT TO PHARMACY. documented in this encounter Plan of Treatment Upcoming Encounters Date Type Department Care Team (Late st Contact Info) Description 02/11/2025 11:30 AM EDT Clinical Support YOLY Martinez Patient Education [address] [place] [id number] Bob Medina RN documented as of this encounter Visit Diagnoses Diagnosis Type 2 diabetes mellitus with hyperglycemia, with long-term current use of insulin (HCC) documented in this encounter Care Teams Core Stripper Relationship Specialty Start Date End Date Brandon Monterroso MD [address] [place] [address] PCP - General Family Medicine 06/26/23 Maira Rush NP [address] [place] [address] PCP - [facility] 06/03/24 Maira Rush NP [address] [place] [address] Referring Physician Nurse Practitioner 12/17/22 Chandrika Danielson, NORAH [address] [place] [address] Family Medicine 12/14/24 01/26/25 Lilian Quezada LSW [address] [place] [address] Institution Librarian Family Medicine 12/14/24 01/26/25 documented as of this encounter
--- OUTSIDE RECORDS SUMMARY | 2025-01-27 00:21 | XMS_ITS | Clinical Summary ---
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 Take with meals Active carvedilol (Coreg) 12.5 MG tablet Take 1 tablet by mouth in the morning and 1 tablet in the evening. Take with meals. Active insulin lispro (HumaLOG Winston KwikPen) 100 UNIT/ML penIndications:Ty pe 2 diabetes mellitus with hyperglycemia, with long-term current use of insulin (HCC) INJECT TEN UNITS SUBCUTANEOUSLY (UNDER THE SKIN) THREE TIMES DAILY (IN THE MORNING, at noon, and IN THE EVENING) WITH MEALS 30 mL 1 Active insulin lispro (HumaLOG) 100 UNIT/ML injection Inject 2-10 Units under the skin in the morning and 2-10 Units at noon and 2-10 Units in the evening. Inject with meals. Active Continuous Glucose Blacktop Paver Operator (FreeStyle Julisa 2 Drury) deviceIndications :Type 2 diabetes mellitus with hyperglycemia, with long-term current use of insulin (HCC) 1 kit every 14 (fourteen) days 1 each 1 /25/ 2025 Active Continuous Glucose Blacktop Paver Operator (FreeStyle Julisa 2 Drury) deviceIndications :Type 2 diabetes mellitus with hyperglycemia, with long-term current use of insulin ([facility]) USE DIRECTED 1 each Active furosemide (Lasix) 20 MG tablet Take 20 mg by mouth in the morning. 024 Active NovoLOG FLEXPEN 100 UNIT/ML penIndications:Ty pe 2 diabetes mellitus with hyperglycemia, with long-term current use of insulin ([facility]) INJECT 15-18-20 UNITS SUBCUTANEOUSLY TO MEAL SIZE PLUS ISSUED SLIDING SCALE *EXPECTED DAILY DOSAGE: 70 UNITS* 15 mL 10 024 Active insulin lispro (HumaLOG) 100 UNIT/ML injection Inject 2-10 Units under the skin in the morning and 2-10 Units at noon and 2-10 Units in the evening. Inject with meals. 025 Active gabapentin (Neurontin) 600 MG tabletIndications :Diabetic polyneuropathy associated with type 2 diabetes mellitus ([facility]) Take 1 tablet (600 mg) by mouth in the morning and 1 tablet (600 mg) in the evening and 1 tablet (600 mg) before bedtime. 270 tablet 1 025 Active losartan (Cozaar) 100 MG tabletIndications :Primary hypertension Take 1 tablet (100 mg) by mouth Daily 90 tablet 1 025 Active pantoprazole (ProtoNix) 40 MG EC tabletIndications :Gastroesophageal reflux disease, unspecified whether esophagitis present Take 1 tablet (40 mg) by mouth Daily 90 tablet 025 Active rosuvastatin (Crestor) 5 MG tabletIndications :Mixed hyperlipidemia Take 1 tablet (5 mg) by mouth in the evening 90 tablet 025 Active Lantus SoloStar 100 UNIT/ML penIndications:Ty pe 2 diabetes mellitus with hyperglycemia, with long-term current use of insulin ([facility]) INJECT 60 UNITS SUBCUTANEOUSLY AT BEDTIME 15 mL 025 Active glucose blood (True Metrix Blood Glucose Test) test stripIndications: Type 2 diabetes mellitus with hyperglycemia, with long-term current use of insulin ([facility]) USE TO TEST BLOOD SUGAR FOUR TIMES A DAY 300 strip 025 Active Calcium Carb-Cholecalcife rol (Calcium+D3) 500-10 MG-MCG tabletIndications :Osteoporosis, unspecified osteoporosis type, unspecified pathological fracture presence Take 1 tablet by mouth in the morning and 1 tablet before bedtime. 60 tablet 5 025 Active budesonide-formot helen (Symbicort) 160-4.5 MCG/ACT inhalerIndication s:COPD mixed type (HCC) Inhale 2 puffs in the morning and 2 puffs before bedtime. 10.2 g 5 025 Active PARoxetine (Paxil) 30 MG tabletIndications :JORDAN (generalized anxiety disorder),Mild episode of recurrent major depressive disorder Take 1 tablet (30 mg) by mouth in the morning. 30 tablet 5 025 Active Aspirin Low Dose 81 MG EC tablet Take 81 mg by mouth Daily Active potassium chloride ER (Micro-K) 10 MEQ ER capsule Take 10 mEq by mouth Daily Active Continuous Glucose Sensor (FreeStyle Julisa 2 Sensor) miscIndications:T ype 2 diabetes mellitus with hyperglycemia, with long-term current use of insulin ([facility]) USE TO MONITOR BLOOD SUGAR DIRECTED. CHANGE SENSOR EVERY 14 DAYS. 2 each Active nystatin-triamcin olone (Mycolog II) creamIndications: Gill infection of genital region Apply to affect area twice a day for 14 days 60 g 1 025 2024 Active fluconazole (Diflucan) 150 MG tabletIndications :Gill infection of genital region Every 3 days for a total of 4 doses 4 tablet Active Alcohol Swabs (Alcohol Prep) 70 % pads USE DIRECTED FIVE TIMES A DAY Active buPROPion XL (Wellbutrin XL) 150 MG 24 hr tabletIndications :Mild episode of recurrent major depressive disorder Take 1 tablet (150 mg) by mouth in the morning. Do not crush, chew, or split. 30 tablet 2 025 Active TRUEplus Lancets 33G miscIndications:T ype 2 diabetes mellitus with hyperglycemia, with long-term current use of insulin ([facility]) USE FOUR TIMES A DAY *NEW RX REQUEST* 100 each Active Blood Glucose Calibration (True Metrix Level 1) Low solutionIndicatio ns:Type 2 diabetes mellitus with hyperglycemia, with long-term current use of insulin (HCC) USE DIRECTED PER PACKAGE INSTRUCTIONS *NEW RX REQUEST* 1 each Active Blood Glucose Calibration (True Metrix Level 2) Normal solutionIndicatio ns:Type 2 diabetes mellitus with hyperglycemia, with long-term current use of insulin (HCC) USE DIRECTED PER PACKAGE INSTRUCTIONS *NEW RX REQUEST* 1 each Active Blood Glucose Calibration (True Metrix Level 3) High solutionIndicatio ns:Type 2 diabetes mellitus with hyperglycemia, with long-term current use of insulin (HCC) USE DIRECTED PER PACKAGE INSTRUCTIONS *NEW RX REQUEST* 1 each Active Lancet Devices (TRUEdraw Lancing Device) miscIndications:T ype 2 diabetes mellitus with hyperglycemia, with long-term current use of insulin (HCC) USE DIRECTED PER PACKAGE INSTRUCTIONS *NEW RX REQUEST* 100 each Active insulin pen needle (Sure Comfort Pen [place]) 32G x 4 mm miscIndications:T ype 2 diabetes mellitus with hyperglycemia, with long-term current use of insulin (HCC) USE FOUR TIMES A DAY 100 each Active spironolactone (Aldactone) 25 MG tabletIndications :Primary hypertension,Malcolm a of extremities Take 1 tablet (25 mg) by mouth in the morning and 1 tablet (25 mg) at noon. 60 tablet 2 2024 Active tiotropium (Spiriva Respimat) 2.5 MCG/ACT inhalerIndication s:COPD mixed type (HCC) Inhale 2 puffs Daily 4 g 2 2024 Active empagliflozin (Jardiance) 25 MGIndications:Typ e 2 diabetes mellitus with diabetic neuropathy, with long-term current use of insulin ([facility]) Take 1 tablet (25 mg) by mouth Daily 30 tablet 2 2024 Active albuterol (2.5 MG/3ML) 0.083% nebulizer solutionIndicatio ns:COPD mixed type (HCC) Take 3 mL (2.5 mg) by nebulization every 6 (six) hours if needed for wheezing or shortness of breath 360 mL 2024 Active cholecalciferol (Vitamin D-3) 50 MCG (1999 UT) tabletIndications :Vitamin D deficiency Take 1 tablet (50 mcg) by mouth Daily 30 tablet 2 025 2024 Active Blood Glucose Monitoring Suppl (True Metrix Meter) w/Device kitIndications:Ty pe 2 diabetes mellitus with hyperglycemia, with long-term current use of insulin (HCC) USE TO TEST BLOOD SUGAR 4 TIMES DAILY 1 kit 1 Active tiotropium (Spiriva Respimat) 2.5 MCG/ACT inhalerIndication s:COPD mixed type (HCC) Inhale 2 puffs Daily 1 each 5 024 2024 Discontinued cholecalciferol (Vitamin D-3) 50 MCG (1999) tablet Take by mouth Daily 024 2024 Discontinued empagliflozin (Jardiance) 25 MGIndications:Typ e 2 diabetes mellitus with diabetic neuropathy, with long-term current use of insulin (HCC) Take 1 tablet (25 mg) by mouth Daily 30 tablet 5 025 2024 Discontinued spironolactone (Aldactone) 25 MG tabletIndications :Primary hypertension,Malcolm a of extremities Take 1 tablet (25 mg) by mouth in the morning and 1 tablet (25 mg) at noon. 180 tablet 1 025 2024 Discontinued albuterol (2.5 MG/3ML) 0.083% nebulizer solutionIndicatio ns:COPD mixed type (HCC) Take 3 mL (2.5 mg) by nebulization every 6 (six) hours if needed for wheezing or shortness of breath 360 mL 1 025 2024 Discontinued Blood Glucose Monitoring Suppl (True Metrix Meter) w/Device kitIndications:Ty pe 2 diabetes mellitus with hyperglycemia, with long-term current use of insulin (HCC) USE FOUR TIMES A DAY *NEW RX REQUEST* 1 kit 1 025 2024 Discontinued Active Problems Problem Noted Date Diagnosed Date Weight loss, unintentional 12/15/2024 Assessment & Plan (12/15/2024 1:52 PM EDT): DD: psych, malignancy, uncontrolled DM Genital lesion, female 12/14/2024 Gill infection of genital region 12/01/2024 Assessment & Plan (12/01/2024 6:04 PM EDT): Discussed skin care, diflucan oral, as well as topical Will add atb for secondary infection Fu in 10 days Gill rash of groin 10/14/2024 Assessment & Plan (12/14/2024 12:50 PM EDT): Was prescribed at last appt diflucan and mycolog Significant improvement, but likely to continue until glucose is under control Mild episode of recurrent major depressive disor steven 08/06/2024 Assessment & Plan (10/14/2024 9:47 PM EDT): Stressors: spouse in jail , also not a strong support system Current med: paxil Will add medication: will trail wellbutrin Assessment & Plan (08/06/2024 10:10 AM EST): Stressors: spouse in jail , also not a strong support system [...] that it is the responsibility of the owner operator tanker truck driver of the YARIEL, no this healthcare provider. The patient verbalizes understanding of this . Has a cat Cigarette nicotine dependence without complicati on 08/06/2024 Assessment & Plan (12/14/2024 6:43 AM EDT): The patient has been advised of the risks of continued smoking: stroke, [place], all forms of cancer, lung disease, and . Options for quitting smoking include: cold turkey, hypnosis, acupuncture, nicotine replacement meds (gum, lozenges, and patches), Buproprion, and Varenicline. At this time pt is encouraged to evaluate their goals for wanting to quit smoking, and reach out to provider when ready to start this process Assessment & Plan (10/14/2024 7:02 AM EDT): The patient has been advised of the risks of continued smoking: stroke, [place], all forms of cancer, lung disease, and . Options for quitting smoking include: cold turkey, hypnosis, acupuncture, nicotine replacement meds (gum, lozenges, and patches), Buproprion, and Varenicline. At this time pt is encouraged to evaluate their goals for wanting to quit smoking, and reach out to provider when ready to start this process Assessment & Plan (08/06/2024 6:18 AM EST): The patient has been advised of the risks of continued smoking: stroke, [place], all forms of cancer, lung disease, and . Options for quitting smoking include: cold turkey, hypnosis, acupuncture, nicotine replacement meds (gum, lozenges, and patches), Buproprion, and Varenicline. 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 05/28/2024 Assessment & Plan (05/28/2024 8:05 AM EST): Noted on past CT scans, felt to be adenoma, however is getting larger in size Will order CT scan adrenal gland protocol COPD with acute exacerbation 05/28/2024 Assessment & Plan (05/28/2024 12:15 PM EST): Recent hospitalization with pneumonia in the last few months Is on home O2, also with nebs at home, states no difference in her wheezing with or without the neb UTD on flu shot, not on COVID Had CT chest on 05/25/24 but did not have sxs at that time Her is in a jail, possible exposure to something there Differentials: atypical pneumonia, COPD exac, COVID/FLU/RSV?? At this point I have recommended that she go to the ER for further evaluation and testing She is agreeable to this Right wrist pain 05/19/2024 Assessment & Plan (05/19/2024 2:55 PM EST): No hx of trauma, may be aggravated by recent splinting and biju wrap of right middle finger Biju wrap applied, leave intact (may remove to shower) for 72 hours, then remove and see if better No NSAIDS d/t anti coagulation, may use ice to affected area 3-4 times daily Fu if not better Encounter for wellness examination 04/22/2024 Assessment & Plan (04/22/2024 6:47 AM EST): Reviewed Ht/Wt/BMI Recommend eye exam yearly Recommend dental exams twice a year Balance work/leisure activities Exercises is recommended most days of the week (appropriate as chronic conditions allow) Follow up yearly and prn Lung nodule, multiple 04/22/2024 Assessment & Plan (12/15/2024 1:51 PM EDT): Check CT Assessment & Plan (05/06/2024 7:22 AM EST): Needs fu CT due now, order to TB Lymphadenopathy, generalized 04/22/2024 Assessment & Plan (04/22/2024 6:55 AM EST): Repeat CT chest w contrast CAP (community acquired pneumonia) 04/22/2024 Assessment & Plan (05/06/2024 2:07 PM EST): Finished atb Breathing: improved Fever:none No productive cough Assessment & Plan (04/22/2024 10:14 AM EST): Refilled nebs D/t elevated glucose hold steroids Will trial doxycycline Fu 2 weeks recheck Oxygen dependent 03/18/2024 Weakness generalized 02/26/2024 Type 2 diabetes mellitus with hyperglycemia 02/01 Assessment & Plan (06/09/2024 11:24 AM EST): Check blood sugars daily, notify if <70 [...] prednisone script, back down into 200-250 range Dizziness and giddiness 02/17/2024 Assessment & Plan (02/25/2024 1:04 PM EDT): Orthostatic BP: Lying 142/82 Sittin/80 Standin/76 Review [...] 25mg BID Her new med supply from [facility] is 25mg BID This may be related to her dizziness Will obtain notes from [facility], I did call medical records and left voice mail to send all ER notes for recent visit Assessment & Plan (02/17/2024 12:59 PM EDT): Could be still with getting stronger, also will check labs to r/o anemia or elyte abnormals Fu in 3 weeks Continue with home OT/PT 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) 01/21/2024 Type 2 diabetes mellitus wit hout complication, with long-term current use of insulin 01/21/2024 Assessment & Plan (12/14/2024 12:49 PM EDT): Check blood sugars daily, notify if <70 [...] adjusting dose is not going to matter Assessment & Plan (12/01/2024 6:04 PM EDT): Check blood sugars daily, notify if <70 [...] 10.4 on 04/09/24 Non complaint with fu Assessment & Plan (10/14/2024 7:02 AM EDT): Check blood sugars daily, notify if <70 or >200. Take medications (pills or insulin) as directed. Monitor for s/s of hypoglycemia (sweaty, dizziness, nausea, vomiting, or shakiness). Watch for increase in thirst, urination, or appetite. Inspect feet frequently monitoring for open wounds , and also recommend yearly eye exam. Is under care of Roque lastt appts were scheduled in 09/25, according to our system these appts were cancelled Is on statin , arb , insulin Most recent A1c : 10.4 on 04/09/24 Assessment & Plan (08/06/2024 6:20 AM EST): Check blood sugars daily, notify if <70 [...] Most recent A1c : 10.4 on 04/09/24 Assessment & Plan (05/06/2024 7:24 AM EST): Check blood sugars daily, notify if <70 or >200. Take medications (pills or insulin) as directed. Monitor for s/s of hypoglycemia (sweaty, dizziness, nausea, vomiting, or shakiness). Watch for increase in thirst, urination, or appetite. Inspect feet frequently monitoring for open wounds , and also recommend yearly eye exam. Is under care of Endo Is on statin , arb and asa Assessment & Plan (04/22/2024 6:49 AM EST): Continue with dr sutton for management of this Recommend freq foot checks, as well as yearly eye exams Take medications as directed, and diet low in sugar Assessment & Plan (03/11/2024 12:45 PM EDT): Phone number given for pt to contact Dr Sutton office Assessment & Plan (02/25/2024 1:00 PM EDT): Continue current dosing of insulin at BID And sliding scale insulin Has not followed up with roque as of yet, Kalina manages her diabetes, her sugars are not well controlled, she needs to get in with him Assessment & Plan (02/17/2024 12:57 PM EDT): Continue current dosing of insulin at BID And sliding scale insulin Hypokalemia 11/06/2023 Dysuria 10/16/2023 Assessment & Plan (10/16/2023 10:17 AM EDT): No acute findings suggestive of UTI on UA dip in the office Obesity (BMI 30-39.9) 10/16/2023 Assessment & Plan (08/06/2024 6:14 AM EST): Discussed with patient their BMI (actual, verses recommended). We have also discussed lifestyle modifications: attempts to perform physical activity as chronic conditions allow, also to monitor dietary intake: increasing protein/fruits/veggies and lowering carb intake (unless contraindicated). Limit sodas, juices, and sugary drinks. Assessment & Plan (05/28/2024 12:02 PM EST): Discussed with patient their BMI (actual, verses recommended). We have also discussed lifestyle modifications: attempts to perform physical activity as chronic conditions allow, also to monitor dietary intake: increasing protein/fruits/veggies and lowering carb intake (unless contraindicated). Limit sodas, juices, and sugary drinks. Assessment & Plan (05/19/2024 7:26 AM EST): Discussed with patient their BMI (actual, verses recommended). We have also discussed lifestyle modifications: attempts to perform physical activity as chronic conditions allow, also to monitor dietary intake: increasing protein/fruits/veggies and lowering carb intake (unless contraindicated). Limit sodas, juices, and sugary drinks. Has been demonstrating weight loss: likely related to uncontrolled DM as well as stress from S.O. in jail Dermatitis 10/16/2023 Assessment & Plan (10/16/2023 10:26 AM EDT): Will trial steroid cream for 14 days, if not better contact office SANTO (obstructive sleep apnea) 07/18/2023 Assessment & Plan (08/06/2024 6:08 AM EST): Non compliance , has been instructed in the past on importance of need to wear PAP Not wearing risk stroke, WA, Assessment & Plan (05/06/2024 7:22 AM EST): Non compliance , has been instructed in the past on importance of need to wear PAP Not wearing risk stroke, [place], Assessment & Plan (07/18/2023 3:20 PM EST): Non compliance , has been instructed in the past on importance of need to wear PAP Not wearing risk stroke, [place], Atrial fibrillation 07/18/2023 Assessment & Plan (12/14/2024 12:48 PM EDT): No current afib Current meds: xarelto, b dania Saw cardiology in the last few weeks Stated no ASA therapy d/t DOAC Assessment & Plan (08/06/2024 6:13 AM EST): No current afib Current meds: xarelto, b dania Saw cardiology in the last few weeks Stated no ASA therapy d/t DOAC Assessment & Plan (06/09/2024 6:44 AM EST): No current afib Current meds: asa, xarelto, b dania Assessment & Plan (05/06/2024 7:23 AM EST): Cont current meds and anticoagulation Assessment & Plan (02/17/2024 12:47 PM EDT): Cont current meds and anticoagulation Assessment & Plan (10/16/2023 10:19 AM EDT): Continue with blood thinner and B dania GERD (gastroesophageal reflux disease) Assessment & Plan (08/06/2024 6:14 AM EST): Recommendations: freq small meals, nothing to eat or drink at least 2 hours prior to bed, limit caffeine, alcohol, as well as spicy foods Meds to limit or avoid if possible: NSAIDS Elevate HOB if possible Current med: pantoprazole Assessment & Plan (04/22/2024 10:12 AM EST): Recommendations: freq small meals, nothing to eat or drink at least 2 hours prior to bed, limit caffeine, alcohol, as well as spicy foods Meds to limit or avoid if possible: NSAIDS Elevate HOB if possible Assessment & Plan (10/16/2023 10:19 AM EDT): Continue PPI, recommend limiting caffeine and quit smoking Drug-induced acute pancreatitis ([facility]-HCC) 2023 Osteoporosis 07/18/2023 Overview (04/22/2024): DEXA: 10/02/22: hip -1.3 osteopenia, and lumbar 1.9 Assessment & Plan (04/22/2024 6:48 AM EST): UTD on DEXA Recommend exercise as chronic conditions allow Edema of extremities 07/18/2023 Assessment & Plan (02/17/2024 12:55 PM EDT): Stable at this time Vitamin D deficiency 07/18/2023 Assessment & Plan (04/22/2024 10:12 AM EST): Continue meds Urge and stress incontinence 07/18/2023 Assessment & Plan (12/14/2024 6:44 AM EDT): This likely contributes to yeast Seasonal allergies 07/18/2023 Medical non-compliance 07/18/2023 Assessment & Plan (12/14/2024 12:53 PM EDT): Has not had fu with pulmonology Does not wear PAP as directed Not following with endo Not taking insulin as directed MOCA: 12/14/24 Had pt advocate Chandrika come to see pt and get enrolled in program Assessment & Plan (08/06/2024 6:20 AM EST): Has not had fu with pulmonology Does not wear PAP as directed HLD (hyperlipidemia) 07/18/2023 Encounter for screening mamm ogram for malignant neoplasm of breast 07/18/2023 Assessment & Plan (10/14/2024 9:37 PM EDT): Order mammogram COVID 07/18/2023 Assessment & Plan (06/09/2024 11:15 AM EST): Was dx 05/28/24 w COVID, sent home on doxy, steroids for COPD exac Returned to Er on 06/01/24 d/t elevated glucose Recommend good hand washing ted when visiting in nursing facility Assessment & Plan (07/18/2023 3:22 PM EST): Recent hospitalization for this, appears to be doing quite well Primary hypertension 06/26/2023 Assessment & Plan (12/14/2024 12:48 PM EDT): Please check blood pressure daily and record DASH diet Limit caffeine Take medication as directed Contact office if chest pain, pressure, dizziness, shortness of breath, swelling legs Recommend slow position changes Current meds: b dania and arb Assessment & Plan (10/14/2024 7:00 AM EDT): Please check blood pressure daily and record DASH diet Limit caffeine Take medication as directed Contact office if chest pain, pressure, dizziness, shortness of breath, swelling legs Recommend slow position changes Current meds: b dania and arb Assessment & Plan (08/06/2024 6:13 AM EST): Please check blood pressure daily and record DASH diet Limit caffeine Take medication as directed Contact office if chest pain, pressure, dizziness, shortness of breath, swelling legs Recommend slow position changes Current meds: b dania and arb Assessment & Plan (06/09/2024 6:44 AM EST): Please check blood pressure daily and record DASH diet Limit caffeine Take medication as directed Contact office if chest pain, pressure, dizziness, shortness of breath, swelling legs Recommend slow position changes Current meds: b dania and arb Assessment & Plan (05/06/2024 7:23 AM EST): Please check blood pressure daily and record DASH diet Limit caffeine Take medication as directed Contact office if chest pain, pressure, dizziness, shortness of breath, swelling legs Recommend slow position changes Current meds: b dania and arb Assessment & Plan (04/22/2024 10:12 AM EST): Please check blood pressure daily and record DASH diet Limit caffeine Take medication as directed Contact office if chest pain, pressure, dizziness, shortness of breath, swelling legs Recommend slow position changes Assessment & Plan (02/17/2024 12:55 PM EDT): Stable at this time Assessment & Plan (10/16/2023 10:18 AM EDT): Stable, no med changes Assessment & Plan (07/18/2023 3:21 PM EST): stable JORDAN (generalized anxiety disorder) 06/26/2023 Assessment & Plan (08/06/2024 10:10 AM EST): Current med: paxil Stressors: spouse in jail, pt does not have a large support [...] that it is the responsibility of the owner operator tanker truck driver of the [employer], no this healthcare provider. The patient verbalizes understanding of this . Has a cat Type 2 diabetes mellitus with diabetic polyneuro alicia 06/26/2023 Assessment & Plan (08/06/2024 6:10 AM EST): Takes gabapentin OARRS reviewed Recommend freq foot checks for wounds, recommend proper fitting footwear as well as adequate diabetic control Assessment & Plan (06/09/2024 6:43 AM EST): Long standing DM, recommend freq foot checks for open wounds Good fitting shoes Diabetes control Assessment & Plan (06/09/2024 6:42 AM EST): >>ASSESSMENT AND PLAN FOR TYPE 2 DIABETES MELLITUS WITH DIABETIC NEUROPATHY, WITH LONG-TERM CURRENT USE OF INSULIN ([facility]) WRITTEN ON 07/18/2023 3:19 PM BY MAIRA RUSH NP Non compliant with follow up with Endo Explained to her her persistent non compliance will lead to increase risk stroke, WA, blindness, amputation, as well as CKD Instructed her to contact Dr Sutton's office Check blood sugars daily, notify if [...] diet low in carbohydrates, and simple sugars. Assessment & Plan (06/09/2024 6:42 AM EST): >>ASSESSMENT AND PLAN FOR TYPE 2 DIABETES MELLITUS WITH DIABETIC NEUROPATHY, WITH LONG-TERM CURRENT USE OF INSULIN ([facility]) WRITTEN ON 04/22/2024 9:52 AM BY MAIRA RUSH NP Recommend tight blood sugar control COPD mixed type 05/23/2023 Assessment & Plan (08/06/2024 9:48 AM EST): Recommend quitting smoking Continue inhalers Fu with dental assistant medical assistant: has a walk test coming up Recommend follow up Assessment & Plan (06/09/2024 6:43 AM EST): Quit smoking Continue inhalers Fu with pulmonologoist Recent covid dx Assessment & Plan (05/28/2024 12:11 PM EST): Quit smoking Continue inhalers Fu with pulmonologoist Assessment & Plan (05/06/2024 7:22 AM EST): Quit smoking Continue inhalers Fu with pulmonologoist Assessment & Plan (04/22/2024 10:12 AM EST): Quit smoking Continue inhalers Fu with pulmonologoist Assessment & Plan (10/16/2023 10:31 AM EDT): Continues to smoke, refused to quit Cont current meds at this time Is having some cough increase w increase in wheeze, will treat for early exac COPD D/t multiple drug allergies will use doxycycline No steroids at this time Fu if not better Wears oxygen at HS and about 3 hours daily Assessment & Plan (07/18/2023 3:20 PM EST): Continues to smoke, refused to quit Cont current meds at this time Resolved Problems Problem Noted Date Diagnosed Date Resolved Date Abscess of left groin 10/14/20242024 Assessment & Plan (12/01/2024 6:05 PM EDT): resolved Assessment & Plan (10/14/2024 9:43 PM EDT): Finish atb According to [facility] discharge notes, she was to have HH with [facility] We will need to reach out to them to see why they have not been there as of yet Fu in 2 weeks in office We also talked about proper skin care and importance of diabetes mgmt as well Stage III pressure ulcer of sacral region 03/20/2024 06/09/2024 URI, acute 03/11/2024 04/22/2024 Assessment & Plan (03/11/2024 12:42 PM EDT): Do not see any s/s bacterial infection, lungs clear Did in office Flu A/B/Covid: negative Fluids, rest, monitor for s/s worsening if so call office Open wound of buttock 02/25/20242023 Assessment & Plan (04/22/2024 10:12 AM EST): Resolved per wound Assessment & Plan (02/25/2024 12:04 PM EDT): Recommend cleansing area with soap and water 3-4 times daily and apply zinc oxide cream Increase protein intake Fu in 2 weeks for recheck No atb needed at this time Type 2 diabetes mellitus wit h complication, without long-term current use of insulin 07/18/2023 01/21/2024 Assessment & Plan (11/19/2023 5:08 PM EDT): Discussion with pt about cmIs under the care of Dr sutton for this, her latest A1c is 11.9%, she needs to contact his office and get scheduled for an appt [place] conversation about the need for engagement and compliance and failure to do so may result in Assessment & Plan (10/16/2023 10:21 AM EDT): Is under the care of Dr sutton for this, her latest A1c is 11.9%, she needs to contact his office and get scheduled for an appt Has lost appox 20 pounds since 12/23 Discussed sugars not being under good control, may also be reason for urinary freq/and weight loss Morbid obesity with body mas s index (BMI) of 40.0 to 49.9 07/18/2023 05/19/2024 Tobacco user 07/18/2023 08/06/2024 Assessment & Plan (06/09/2024 11:25 AM EST): The patient has been advised of the risks of continued smoking: stroke, WA, all forms of cancer, lung disease, and . Options for quitting smoking include: cold turkey, hypnosis, acupuncture, nicotine replacement meds (gum, lozenges, and patches), Buproprion, and Varenicline. Is down to 3 cigs daily since she was sick Recommend for this week smoke 3 cigs daily, then next week 2 cigs daily, then week #3 1 cig daily then stop Assessment & Plan (05/06/2024 7:24 AM EST): The patient has been advised of the risks of continued smoking: stroke, WA, all forms of cancer, lung disease, and . Options for quitting smoking include: cold turkey, hypnosis, acupuncture, nicotine replacement meds (gum, lozenges, and patches), Buproprion, and Varenicline. At this time pt is encouraged to evaluate their goals for wanting to quit smoking, and reach out to provider when ready to start this process Assessment & Plan (04/22/2024 6:49 AM EST): The patient has been advised of the risks of continued smoking: stroke, WA, all forms of cancer, lung disease, and . Options for quitting smoking include: cold turkey, hypnosis, acupuncture, nicotine replacement meds (gum, lozenges, and patches), Buproprion, and Varenicline. At this time pt is encouraged to evaluate their goals for wanting to quit smoking, and reach out to provider when ready to start this process Assessment & Plan (11/19/2023 5:09 PM EDT): The patient has been advised of the risks of continued smoking: stroke, WA, all forms of cancer, lung disease, and . Options for quitting smoking include: cold turkey, hypnosis, acupuncture, nicotine replacement meds (gum, lozenges, and patches), Buproprion, and Varenicline. At this time pt is encouraged to evaluate their goals for wanting to quit smoking, and reach out to provider when ready to start this process Assessment & Plan (10/16/2023 10:22 AM EDT): The patient has been advised of the risks of continued smoking: stroke, WA, all forms of cancer, lung disease, and . Options for quitting smoking include: cold turkey, hypnosis, acupuncture, nicotine replacement meds (gum, lozenges, and patches), Buproprion, and Varenicline. At this time pt is encouraged to evaluate their goals for wanting to quit smoking, and reach out to provider when ready to start this process Anxiety and depression 07/18/202308/06 Assessment & Plan (04/22/2024 6:50 AM EST): At last appt we increased dose of paxil: Assessment & Plan (11/19/2023 5:11 PM EDT): Will trial an increase in paxil to 20mg daily Fu in 4-6 weeks Called in 30 day supply to [facility] silva Assessment & Plan (10/16/2023 10:23 AM EDT): Continue paxil at 10mg Increased stressors with having had recent surgery and wound difficulty w healing and has home health nurse and seeing wound care Assessment & Plan (07/18/2023 3:21 PM EST): Stable at this time Open wound 07/18/2023 12/14/2024 Assessment & Plan (03/11/2024 12:43 PM EDT): Refer to wound care Assessment & Plan (07/18/2023 3:23 PM EST): No s/s infection, recommend using diaper barrier ointment on this Encounters Date Type Department Care Team Description 01/19/2025 Patient Outreach [facility] [address] [place] [address] Lilian Quezada [facility] 01/18/2025 Patient Outreach [place] [address] [place] [address] Lilian Quezada [facility] 01/14/2025 Refill [facility] [place] [facility] [address] [place] [address] Felton Sutton MD Type 2 diabetes mellitus with hyperglycemia, with long-term current use of insulin ([facility]) 01/14/2025 Refill [facility] [address] [place] [address] Maira Rush NP Vitamin D deficiency (Primary Dx); Primary hypertension ; Edema of extremities; COPD mixed type (HCC); Type 2 diabetes mellitus with diabetic neuropathy, with long-term current use of insulin (HCC) 01/14/2025 Abstract [facility] [address] [place] [address] Maira Rush NP 01/14/2025 Patient Outreach [place] [address] [place] [address] Chandrika Danielson MA 01/11/2025 Patient Outreach [place] [address] [place] [address] Lilian Quezada LSW 01/11/2025 Orders Only [facility] [address] [place] [address] 01/11/2025 Abstract [facility] [address] [place] [address] Maira Rush NP 01/08/2025 1:00 PM EDT Clinical Support [facility] Patient Education [address] [place] [address] Bob Medina RN Type 2 diabetes mellitus with hyperglycemia, with long-term current use of insulin (HCC) (Primary Dx); COPD mixed type (HCC) 01/08/2025 Patient Outreach [place] [address] [place] [address] Lilian Quezada, [facility] 01/08/2025 Bamboo flowsheet [facility] Patient Education [address] [place] [address] Bob Medina RN 01/07/2025 Patient Outreach [facility] [address] [place] [address] Lilian Quezada, [facility] 12/31/2024 Patient Outreach [place] [address] [place] [address] Lilian Quezada, [facility] 12/22/2024 Patient Outreach [place] [address] [place] [address] Lilian Quezada, [facility] 12/16/2024 Refill [facility] [place] [facility] [address] [place] [address] Felton Sutton MD Type 2 diabetes mellitus with hyperglycemia, with long-term current use of insulin ([facility]) 12/15/2024 Refill [facility] [place] [facility] [address] [place] [address] Felton Sutton MD Type 2 diabetes mellitus with hyperglycemia, with long-term current use of insulin ([facility]) 12/15/2024 Patient Outreach [facility] [address] [place] [address] Lilian Quezada, [facility] 12/14/2024 11:30 AM EDT Office Visit [facility] [address] [place] [address] Maira Rush NP Type 2 diabetes mellitus without complication, with long-term current use of insulin (HCC) (Primary Dx); Gill rash of groin; Cigarette nicotine dependence without complication; Urge and stress incontinence; Primary hypertension ; Paroxysmal atrial fibrillation ([facility]); Medical non-compliance; Lung nodule, multiple; Weight loss, unintentional; 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 (HCC) 12/14/2024 Patient Outreach [address] [place] [address] Lilian Quezada LSW 12/14/2024 Abstract [facility] [address] [place] [address] Maira Rush NP 12/14/2024 Patient Outreach [address] [place] [address] Chandrika Danielson MA 12/14/2024 Refill [facility] [address] [place] [address] Maira Rush NP Mild episode of recurrent major depressive disorder 12/14/2024 [facility] [address] [place] [address] Maira Rush NP 12/01/2024 1:40 PM EDT Office Visit [facility] [address] [place] [address] Maira Rush NP Gill infection of genital region (Primary Dx); Type 2 diabetes mellitus without complication, with long-term current use of insulin ([facility]); Gill rash of groin; Abscess of left groin 12/01/2024 Bamboo flowsheet [facility] [address] [place] [address] Maira Rush NP 11/30/2024 Telephone [facility] [address] [place] [address] Maira Rush, ARLEN 11/25/2024 Orders Only [facility] [address] [place] [address] Maira Rush, ASSISTANT NURSE MANAGER Primary hypertension (Primary Dx) 11/24/2024 Telephone [facility] [address] [place] [address] Maira Rush, ARLEN 11/17/2024 [facility] [address] [place] [address] Maira Rush, ARLEN COPD mixed type (HCC) 11/03/2024 Refill [facility] [place] [facility] [address] [place] [address] Felton Sutton MD Type 2 diabetes mellitus with hyperglycemia, with long-term current use of insulin ([facility]) 10/28/2024 Refill [facility] [place] [facility] [address] [place] [address] Felton Sutton MD Type 2 diabetes mellitus with hyperglycemia, with long-term current use of insulin ([facility]) 10/28/2024 Refill [facility] [place] [facility] [address] [place] [address] Felton Sutton MD Type 2 diabetes mellitus with hyperglycemia, with long-term current use of insulin ([facility]) from Last 3 Months Immunizations Immunization Administration Dates Next Due DTP 11/23/2021 Influenza, High Dose Seasona l, Preservative Free 05/06/2024 Influenza, injectable, MDCK, preservative free, quadrivalent 06/25/2023,2021,03/25/2017 Influenza, injectable, quadr ivalent, preservative free 04/05/2022 Pneumococcal Polysaccharide PPSV23 04/05/2022 Tdap 11/23/2021,03/24/2020 Family History Medical History Relation Name Comments Diabetes Brother 1 Stroke Father Diabetes Mother Heart disease Mother Hypertension Mother Relation Name Status Comments Brother 1 Alive Brother 2 Alive Daughter Alive Father Mother Sister Social History Tobacco Use Types Packs/Day Years [...] Never 12/14/2024 How often do you attend caodaism or jainism serv ices? Never 12/14/2024 Do you belong to any clubs o r organizations such as caodaism groups, unions, fraternal or athletic groups, or [...] Recorded Patient Health Questionnaire-2 Score 0 10/16/2023 [facility] Occupat ional Health - Occupational Stress [...] any time in the past 12 m [facility], were you homeless or living in a penitentiary (including now)? No 12/14/2024 Comments Unknown Sex and Gender Information Value Date Recorded Sex Assigned at Not on file Legal Sex Female 7:18 PM EDT Gender Identity Not on file Sexual Orientation Not on file Last Filed Vital Signs Vital Sign Reading Time Taken Comments Blood Pressure 122/80 12/14/2024 11:31 AM EDT Pulse 93 12/14/2024 11:31 AM EDT Temperature 36.7 C (98.1 F) 12/14/2024 11:31 AM EDT Respiratory Rate 22 12/14/2024 11:31 AM EDT Oxygen Saturation 93% 12/14/2024 11:31 AM EDT Inhaled Oxygen Concentration - - Weight 75.8 kg (167 lb) 12/14/2024 11:31 AM EDT Height 167.6 cm (5' 6 ) 08/06/2024 9:29 AM EST Body Mass Index 26.95 08/06/2024 9:29 AM EST Plan of Treatment Upcoming Encounters Date Type Department Care Team (Late st Contact Info) Description 02/11/2025 11:30 AM EDT Clinical Support [facility] Patient Education [address] [place] [address] Bbo Medina, RN Health Maintenance Due Date Last Done Comments CT Colonography 1959 FIT-DNA 1959 FIT 1959 FOBT 1960 Sigmoidoscopy 1959 Diabetes: Retinopathy Screening 1969 Pap Smear 1980 HPV/Cotest 1989 Pneumococcal Vaccine: 65+ Ye ars (2 of 2 - PCV) 04/05/2023 04/05/2022 Mammogram 08/04/2024 08/05/2023, 03/0 09/2023, 06/19/2022 Colonoscopy 02/14/2025 02/14/2015 Colorectal Cancer Screening 02/14/2025 Diabetes: Hemoglobin A1C 03/16/2025 025, 04/22/2024, 04/21/2024, Additional history exists Diabetes: Urine Protein Screening 05/25/2025 024, 08/09/2022 Influenza Vaccine Discontinued 05/06/2024, , 04/05/2022, Additional history exists Cervical Cancer Screening Discontinued Procedures Procedure Name Priority Date/Time Associated Diagnosis Comments XR CHEST 1 VIEW Routine 01/11/2025 1:54 PM EDT POCT GLYCOSYLATED HEMOGLOBIN (HGB A1C) Routine 12/14/2024 11:47 AM EDT Type 2 diabetes mellitus without complication, with long-term current use of insulin (HCC) MICROALBUMIN / CREATININE URINE RATIO Routine 05/25/2024 10:19 AM EST Type 2 diabetes mellitus with hyperglycemia, with long-term current use of insulin (HCC) MM TOMOSYNTHESIS SCREENING BI 08/05/2023 11:45 AM EST from Last 3 Months or Most Recently Relevant to Health Maintenance Results * XR chest 1 view (01/11/2025 1:54 PM EDT) Anatomical Region Laterality Modality Chest Radiographic Crystal [facility] IMG XR PROCEDURES Final Result * (ABNORMAL) POCT glycosylated hemoglobin (Hb A1C) docked device (12/14/2024 11:47 AM EDT) Hemoglobin A1C 14.1 Blood Venous blood specimen / Unknown 12/14/2024 11:47 AM EDT Maira Rush NP POINT OF CARE TEST ENTER/EDIT O RDERABLES Final Result * Microalbumin / creatinine urine ratio (05/25/2024 10:19 AM EST) Urine Urine specimen obtained by clean catch procedure / Unknown Felton Sutton MD LAB URINE ORDERABLES Final Re sult [facility] * MM TOMOSYNTHESIS SCREENING BI (08/05/2023 11:45 AM EST) Anatomical Region Laterality Modality Other 08/05/2023 11:4 5 AM EST Narrative 08/05/2023 11:46 [place] [address] Mammography Report Signed Patient: RODDY DIOR MR#: [id number] : 1960 Acct:[id number] Age/Sex: 63 / F ADM Date: 08/05/23 Loc: MAMMO Attending Dr: Maira Rush NP Ordering Physician: Maira Rush NP Results: Date of Service: 08/05/23 Follow Up: Procedure(s): MM tomosynthesis screening BI Accession Number(s): [id number] cc: Maira Rush NP Patient Name: RODDY DIOR MR#: [id number] : 1960 Exam Date: 08/05/2023 Ordering Doctor: [...] breast cancer at age 64. LOCATION: [facility] BREAST COMPOSITION: Scattered areas fibroglandular density. FINDINGS: [...] Signed By: 08/05/23 1146 DD/ 1145 TD/TT: Sleever: Procedure Note Radiology, Radiologist, - 08/05/2023 [place] [address] Mammography Report Signed Patient: RODDY DIOR EMR#: [id number] : 1960Acct:[id number] Age/Sex: 63 / FADM Date: 08/05/23 Loc: MAMMO Attending Dr: Maira Rush NP Ordering Physician: Maira Rushesults: Date of Service: 08/05/23Follow Up: Procedure(s): MM tomosynthesis screening BI Accession Number(s): [id number] cc: Maira Rush NP Patient Name: RODDY DIOR MR#: [id number] : 1960 Exam Date: 08/05/2023 Ordering Doctor: [...] breast cancer at age 64. LOCATION: [facility] BREAST COMPOSITION: Scattered areas fibroglandular density. FINDINGS: [...] M.D. Signed By:08/05/23 1146 DD/ 1145 TD/TT: Sleever: Maira Rush NP [facility] Final Result from Last 3 Months or Most Recently Relevant to Health Maintenance Insurance [employer] Care Teams Rotary Rig Engine Operator Relationship Specialty Start Date End Date Brandon Monterroso MD [address] [place] [address] PCP - General Family Medicine 06/26/23 Maira Rush NP [address] [place] [address] PCP - [facility] 06/03/24 Maira Rush NP [address] [place] [address] Referring Physician Nurse Practitioner 12/17/22
--- OUTSIDE RECORDS SUMMARY | 2025-01-27 00:22 | XMS_ITS | Encounter Summary ---
Author Organization [facility] Address [address] [place] [address] Care Team Providers Care Defense Travel Administrator Name Role Phone Maira Rush ADMINISTRATIVE SUPPORT CLERK Unavailable [phone] Brandon Monterroso MD Primary Care Provider Maira Rush ADMINISTRATIVE SUPPORT CLERK Unavailable [phone] Chandrika Danielson MA Unavailable [phone] Lilian Quezada FORMS DESIGNER Unavailable Encounter Details Date Type Department Care Team (Late Contact Info) Description 04/13/2024 Orders Only [facility] [address] [place] [address] Maira Rush, ADMINISTRATIVE SUPPORT CLERK [address] [place] [address] Social History Tobacco Use Types Packs/Day Years [...] Support [facility] Patient Education [address] [place] [address] Bob Medina RN documented as of this encounter Procedures Procedure Name Priority Date/Time Associated Diagnosis Comments SCANNED LABS Routine 04/13/2024 8:54 AM EST documented in this encounter Results * SCANNED LABS (04/13/2024 8:54 AM EST) Maira Rush ADMINISTRATIVE SUPPORT CLERK LAB CHG PERFORMABLES Final Resu lt documented in this encounter Visit Diagnoses Not on filedocumented in this encounter Care Teams Defense Travel Administrator Relationship Specialty Start Date End Date Brandon Monterroso MD [address] [place] [address] PCP - General Family Medicine 06/26/23 Maira Rush NP [address] [place] [address] PCP - [facility] 06/03/24 Maira Rush NP [address] [place] [address] Referring Physician Nurse Practitioner 12/17/22 Chandrika Danielson, NORAH [address] [place] [address] Family Medicine 12/14/24 01/26/25 Lilian Quezada LSW [address] [place] [address] Vehicle Controls Engineer Family Medicine 12/14/24 01/26/25 documented as of this encounter
--- OUTSIDE RECORDS SUMMARY | 2025-01-27 00:22 | XMS_ITS | Patient Health Record ---
Author Organization [facility] [place] Address [address] [place] [address] Care Team Providers Care Bacon De Rinder Name Role Phone Maira Rush CNP Primary Care Provider Unavail able Reason For Referral No Information Problems Problem Type SNOMED Code ICD Code Onset Dates Problem Status W/U Status Risk Notes Problem Pain (R52) Active confirmed Plan Of Treatment No Information Insurance Providers Payer Name Payer Address Payer Phone Subscriber Number Group Number Insured Name Patient Relationship to Insured Coverage Start Date Coverage End Date [employer] [place] [employer] [address] [place] [address] [id number] Denae Dior Self - patient is the insured
--- OUTSIDE RECORDS SUMMARY | 2025-01-27 00:22 | XMS_ITS | Encounter Summary ---
Author Organization [facility] Address [address] [place] [address] Care Team Providers Care Dental Aide Name Role Phone Maira Rush NETWORK AND THREAT SUPPORT SPECIALIST Unavailable [phone] Brandon Monterroso MD Primary Care Provider Maira Rush NETWORK AND THREAT SUPPORT SPECIALIST Unavailable [phone] Chandrika Danielson MA Unavailable [phone] Lilian Quezada LECTURER IN MARKETING Unavailable Encounter Details Date Type Department Care Team (Late Contact Info) Description 02/25/2024 Orders Only [facility] [address] [place] [address] Maira Rush, NETWORK AND THREAT SUPPORT SPECIALIST [address] [place] [address] Social History Tobacco Use Types Packs/Day Years [...] Support YOLY Martinez Patient Education [address] [place] [address] Bob Medina RN documented as of this encounter Procedures Procedure Name Priority Date/Time Associated Diagnosis Comments SCANNED LABS Routine 02/25/2024 3:38 PM EDT ECG 12-LEAD Routine 02/25/2024 3:38 PM EDT SCANNED LABS Routine 02/25/2024 11:15 AM EDT documented in this encounter Results * SCANNED LABS (02/25/2024 3:38 PM EDT) Maira Rush NETWORK AND THREAT SUPPORT SPECIALIST LAB CHG PERFORMABLES Final Resu lt * ECG 12 lead (02/25/2024 3:38 PM EDT) Maira Rush NETWORK AND THREAT SUPPORT SPECIALIST ECG ORDERABLES Final Result * SCANNED LABS (02/25/2024 11:15 AM EDT) Maira Rush NETWORK AND THREAT SUPPORT SPECIALIST LAB CHG PERFORMABLES Final Resu lt documented in this encounter Visit Diagnoses Not on filedocumented in this encounter Care Teams Dental Aide Relationship Specialty Start Date End Date Brandon Monterroso MD [address] [place] [address] PCP - General Family Medicine 06/26/23 Maira Rush NP [address] [place] [address] PCP - [facility] 06/03/24 Maira Rush NP [address] [place] [address] Referring Physician Nurse Practitioner 12/17/22 Chandrika Danielson, NORAH [address] [place] [address] Family Medicine 12/14/24 01/26/25 Lilian Quezada, MIAH [address] [place] [address] Supervisor Salvage Family Medicine 12/14/24 01/26/25 documented as of this encounter
--- OUTSIDE RECORDS SUMMARY | 2025-01-27 00:22 | XMS_ITS | Encounter Summary ---
Author Organization [facility] Address [address] [place] [address] Care Team Providers Care Maintenance Welder Name Role Phone Maira Rush MS SQL SERVER DEVELOPER Unavailable [phone] Brandon Monterroso MD Primary Care Provider Maira Rush MS SQL SERVER DEVELOPER Unavailable [phone] Chandrika Danielson MA Unavailable [phone] Lilian Quezada MASTER BARBER Unavailable Encounter Details Date Type Department Care Team (Late Contact Info) Description 04/10/2024 Orders Only [facility] [address] [place] [address] [place] [id number] Kiko Garcia MD [address] [place], [place] [id number] Social History Tobacco Use Types Packs/Day Years [...] Support YOLY Martinez Patient Education [address] [place] [place] [address] Bob Medina RN documented as of this encounter Procedures Procedure Name Priority Date/Time Associated Diagnosis Comments XR CHEST 1 VIEW Routine 04/10/2024 9:26 AM EST documented in this encounter Results * XR chest 1 view (04/10/2024 9:26 AM EST) Anatomical Region Laterality Modality Chest Radiographic Crystal ging Kiko Garcia MD IMG XR PROCEDURES Final Resul t documented in this encounter Visit Diagnoses Not on filedocumented in this encounter Care Teams Maintenance Welder Relationship Specialty Start Date End Date Brandon Monterroso MD [address] [place] [phone] PCP - General Family Medicine 06/26/23 Maira Rush NP [address] [place] [phone] PCP - [facility] 06/03/24 Maira Rush NP [address] [place] [phone] Referring Physician Nurse Practitioner 12/17/22 Chandrika Danielson, [place] [address] [place] [address] Family Medicine 12/14/24 01/26/25 Lilian Quezada LSW [address] [place] [place] [address] Ornamental Metal Erector Family Medicine 12/14/24 01/26/25 documented as of this encounter
--- NOTE | 2025-01-27 00:40 | ECG_ITS ---
[facility] Test Date: 2025-01-27 Pat Name: RODDY HORN Department: Room: - Gender: Female Sling Operator: : 1960 Requested By: [id number] Order Number: [id number] Reading MD: MICHAEL FORTUNE Measurements Intervals [place] Rate: 58 P: 47 MA: 178 QRS: -21 QRSD: 80 T: 243 QT: 414 QTc: 411 Interpretive Statements 1100 Sinus bradycardia 3433 Septal myocardial infarction, probably old 4664 Twave abnormality, possible inferolateral ischemia 7202 Moderate left axis deviation 9150 abnormal ECG Compared to ECG 01/09/2025 18:42:47 Possible ischemia now present Left-axis deviation now present Electronically Signed On 01-27-2025 15:59:51 EDT by MICHAEL FORTUNE
--- NOTE | 2025-01-27 00:40 | ED.CHESTPAI1 ---
HPI - Chest Pain General Chief Complaint: Chest Pain Stated Complaint: SYNCOPAL Time Seen by Provider: 01/27/25 00:30 Source: patient Mode of arrival: ambulance History of Present Illness HPI narrative: This 64-year-old female with a history of atrial fibrillation who is on Xarelto presents for evaluation. The patient states she was walking between her bedroom and living room tonight and started feeling dizzy like she was going to pass out. She did not fall. She made it to her couch. She then called EMS. The patient states she is having midsternal chest pain that radiates down her left arm associated with some mild shortness of breath. She denies any diaphoresis. She denies any nausea vomiting or abdominal pain. She is not have any back pain. She has no lower extremity pain or swelling. She has a history of diabetes, hypertension, COPD and atrial fibrillation. She has not had any fever or chills. 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 She does continue to smoke and states that she is down to 6 cigarettes a day. Patient was allegedly seen at [facility] a week or 2 ago after a syncopal event and found to have a UTI and was discharged home. Related Data Home Medications ?Medication ?Instructions ?Recorded ?Confirmed aspirin 81 mg tablet,delayed 81 mg PO DAILY 04/05/23 01/27/25 release budesonide-formoterol HFA 160 2 puff inhalation BID 04/05/23 01/27/25 mcg-4.5 mcg/actuation aerosol inhaler (Symbicort) carvedilol 12.5 mg tablet 12.5 mg PO BID 04/05/23 01/27/25 empagliflozin 25 mg tablet 25 mg PO DAILY 04/05/23 01/27/25 (Jardiance) gabapentin 600 mg tablet 600 mg PO TID 04/05/23 01/27/25 insulin aspart U-100 100 unit/mL 1 sliding scale dose subcut 04/05/23 01/27/25 (3 mL) subcutaneous pen (Novolog TIDWMEAL FlexPen U-100 Insulin aspart) insulin glargine 100 unit/mL (3 60 unit subcut QPM 04/05/23 01/27/25 mL) subcutaneous pen (Lantus Solostar U-100 Insulin) losartan 100 mg tablet 100 mg PO DAILY 04/05/23 01/27/25 pantoprazole 40 mg tablet,delayed 40 mg PO DAILY 04/05/23 01/27/25 release potassium chloride 10 mEq 10 meq PO DAILY 04/05/23 01/27/25 capsule,extended release rivaroxaban 20 mg tablet (Xarelto) 20 mg PO DAILY 04/05/23 01/27/25 rosuvastatin 5 mg tablet 5 mg PO DAILY 04/05/23 01/27/25 spironolactone 25 mg tablet 25 mg PO BID 04/05/23 01/27/25 furosemide 20 mg tablet 20 mg PO DAILY 01/03/24 01/27/25 paroxetine HCl 30 mg tablet 30 mg PO DAILY 10/03/24 01/27/25 Previous Rx's ?Medication ?Instructions ?Recorded albuterol sulfate 90 mcg/actuation 2 inh inhalation Q4H PRN shortness 06/25/23 aerosol inhaler of breath or wheezing #8.5 grams albuterol sulfate 2.5 mg/3 mL 2.5 mg (3 mL) inhalation Q6H PRN 09/16/23 (0.083 %) solution for nebulization shortness of breath or wheezing #90 mL Allergies Allergy/AdvReac Type Severity Reaction Status Date / Time ciprofloxacin (From Cipro) AdvReac Intermediate Vomiting Verified 01/27/25 00:22 metronidazole (From Flagyl) AdvReac Intermediate Vomiting Verified 01/27/25 00:22 Penicillins AdvReac Intermediate Vomiting Verified 01/27/25 00:22 sulfamethoxazole (From AdvReac Intermediate Vomiting Verified 01/27/25 00:22 Bactrim) trimethoprim (From Bactrim) AdvReac Intermediate Vomiting Verified 01/27/25 00:22 Review of Systems ROS Status of ROS 10 or more systems reviewed and unremarkable except as noted in history and below [facility] Medical History (Updated 01/27/25 @ 03:49 by Jessica Howe MD) Paroxysmal atrial fibrillation ?I48.0 - Paroxysmal atrial fibrillation (ICD-10) Diabetes mellitus with hyperglycemia, with long-term current use of insulin ?E11.65 - Type 2 diabetes mellitus with hyperglycemia (ICD-10) ?Z79.4 - retirement (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 (ICD-10) Hypertension ?I10 - Essential (primary) hypertension (ICD-10) Chronic obstructive pulmonary disease ?J44.9 - Chronic obstructive pulmonary disease, unspecified (ICD-10) COVID ?U07.1 - COVID-19 (ICD-10) Acute and chronic respiratory failure ([id number]-fi-klpnwin) ?J96.20 - Acute and chronic respiratory failure, unspecified whether with hypoxia or hypercapnia (ICD-10) Acute exacerbation of chronic obstructive pulmonary disease ?J44.1 - Chronic obstructive pulmonary disease with (acute) exacerbation (ICD-10) Dehydration ?E86.0 - Dehydration (ICD-10) Acute infective exacerbation of chronic obstructive airway disease ?J44.1 - Chronic obstructive pulmonary disease with (acute) exacerbation (ICD-10) Syncope ?R55 - Syncope and collapse (ICD-10) Head injury ?S09.90XA - Unspecified injury of head, initial encounter (ICD-10) Fall ?W19.XXXA - Unspecified fall, initial encounter (ICD-10) Closed head injury ?S09.90XA - Unspecified injury of head, initial encounter (ICD-10) Vertigo ?R42 - Dizziness and giddiness (ICD-10) Finger pain, right ?M79.644 - Pain in right finger(s) (ICD-10) Community acquired pneumonia ?J18.9 - Pneumonia, unspecified organism (ICD-10) COPD exacerbation ?J44.1 - Chronic obstructive pulmonary disease with (acute) exacerbation (ICD-10) COVID-19 ?U07.1 - COVID-19 (ICD-10) Hyperglycemia, drug-induced ?R73.9 - Hyperglycemia, unspecified (ICD-10) ?T50.905A - Adverse effect of unspecified drugs, medicaments and biological substances, initial encounter (ICD-10) Abscess ?L02.91 - Cutaneous abscess, unspecified (ICD-10) Acute hyperglycemia ?R73.9 - Hyperglycemia, unspecified (ICD-10) A-fib ?I48.91 - Unspecified atrial fibrillation (ICD-10) Diabetes ?E11.9 - Type 2 diabetes mellitus without complications (ICD-10) Acute shoulder pain ?M25.519 - Pain in unspecified shoulder (ICD-10) Hyperlipidemia ?E78.5 - Hyperlipidemia, unspecified (ICD-10) Depression ?F32.A - Depression, unspecified (ICD-10) Surgical History (Updated 06/24/23 @ 12:13 by Aliyah Ruiz RN) History of appendectomy ?Z90.49 - Acquired absence of other specified parts of digestive tract (ICD-10) Hx of cholecystectomy ?Z90.49 - Acquired absence of other specified parts of digestive tract (ICD-10) H/O: hysterectomy ?Z90.710 - Acquired absence of both cervix and uterus (ICD-10) Family History (Updated 06/24/23 @ 12:13 by Aliyah Ruiz RN) Mother Family history of diabetes mellitus Grandfather Family history of diabetes mellitus Father Family history of stroke Social History (Updated 10/04/24 @ 02:53 by Cherelle Tripathi RN) Within the past year, how often did you have a drink containing alcohol: never Score interpretation: A score less than 3 is consistent with normal alcohol consumption. Smoking status: Current every day smoker Non-prescribed substance use: denies use Previous occupational history: Unemployed Highest level of school completed/degree received: high school graduate Little interest or pleasure in doing things: not at all Feeling down, depressed, or hopeless: not at all Gender Identity: female Exam Narrative Exam Narrative: Vital signs and Nursing Notes reviewed: Is afebrile with a normal pulse, normal blood pressure, she is not hypoxic with pulse ox of 96% on room air General: Awake, alert, oriented, poorly kempt adult female, she is in no acute distress, lying comfortably on the stretcher HEENT: Normocephalic atraumatic, mucous membranes are moist and pink, eyes are clear, normal conjunctiva, vision is grossly intact, posterior pharynx is normal in appearance. Neck: Supple, no JVD Chest: Lungs are diminished with scattered rhonchi and expiratory wheezing, no rales are appreciated, no accessory muscle use is noted, patient is not hypoxic with pulse ox of 96% on room air CVS: Regular rate and rhythm S1-S2, no murmurs rubs or gallops, pulses are brisk and equal bilaterally ABD: Soft, nondistended, nontender, no rebound guarding or rigidity, bowel sounds are normal, no pulsatile masses appreciated Extremities: Moving all extremities, no lower extremity tenderness or swelling noted, negative Homans' sign, pulses are brisk and equal bilaterally Skin: Normal in appearance without rash,pallor, petechiae or purpura, patient is poorly kempt with dirty feet and hair-no signs of infestation Neuro: No focal deficits Constitutional Vital Signs, click to edit/add: Last Vital Signs Temp 98.0 F 01/27/25 00:24 Pulse 69 01/27/25 02:30 Resp 16 01/27/25 02:30 BP 124/58 01/27/25 00:30 Pulse Ox 98 01/27/25 02:30 O2 Del Method Room Air 01/27/25 02:30 Course Vital Signs Vital signs: Vital Signs Pulse Rate 58 L 01/27/25 00:15 Respiratory Rate 5 L 01/27/25 00:15 Temperature 98.0 F 01/27/25 00:24 Pulse Rate 69 01/27/25 02:30 Respiratory Rate 16 01/27/25 02:30 Blood Pressure 124/58 01/27/25 00:30 Pulse Oximetry 98 01/27/25 02:30 Oxygen Delivery Method Room Air 01/27/25 02:30 MDM - Chest Pain MDM Narrative Medical decision making narrative: This 64-year-old female with a history of atrial fibrillation who is on Xarelto, hypertension, diabetes and COPD who continues to smoke presents for evaluation from home after she states she was walking from her bedroom into the living room and suddenly felt dizzy like she was going to pass out. She did not actually pass out but sat down on the couch. She presents complaining of chest pain with radiation into her left arm. She denies any worsening shortness of breath. She has no abdominal pain or back pain. She states that she was recently seen at [place] after a syncopal event and found to have a UTI. She is not on any steroids. Vital signs are stable with a mildly low pulse of 58. She is on a beta-dania. EKG done upon arrival is a sinus rhythm 58 bpm with a left axis and no acute findings. She does have some expiratory wheezing DuoNeb treatment was ordered for her. Cardiac workup was ordered. She has an elevated white count at 18.2 with an elevated hemoglobin of 16.5 which is not unusual for her. Electrolytes are normal with an elevated glucose of 294 and mildly low potassium of 3.2. Troponin is normal. Delta troponin is also normal. 1 view chest x-ray was ordered and reviewed by myself. No acute pulmonary infiltrate, she has a normal mediastinum and normal cardiac borders. After IV fluids urinalysis was collected and shows trace leukocyte esterase with 0-2 white blood cells per high-power field and yeast and noted. She was empirically treated with 500 mg of IV Zithromax as she is allergic to penicillins, Flagyl and quinolones. She remains hemodynamically stable in the emergency department. She states that she does not know if she wants to be admitted but still feels dizzy and lightheaded. At that point the hospitalist was called for admission. She will be admitted to [facility] observation status Medical Records Data Attestation: I reviewed the patient's medical records. Lab Data Attestation: I reviewed the patient's lab results. Labs: Lab Results 01/27/25 01/27/25 01/27/25 Range/Units 00:35 01:51 02:19 WBC 18.3 H (4.0-11.0) 10^3/uL RBC 5.33 (4.20-5.40) 10^6/uL Hgb 16.5 H (12.0-16.0) g/dL Hct 49.1 H (36.0-48.0) % MCV 92.1 (81.0-99.0) fL MCH 31.0 (26.7-34.0) pg MCHC 33.6 (29.9-35.2) g/dL RDW 13.9 (11.0-15.0) % Plt Count 322 (150-450) 10^3/uL MPV 10.2 (9.5-13.5) fL Seg Neuts % (Manual) 80.0 H (43.0-75.0) Lymphocytes % (Manual) 8.0 L (20.5-60.0) % Atypical Lymphs % (Man) 2.0 % Monocytes % (Manual) 11.0 (1.7-12.0) % Eosinophils % (Manual) 0.0 L (0.9-7.0) % Basophils % (Manual) 0.0 L (0.2-2.0) % Neutrophils # (Manual) 14.64 H (1.4-6.5) 10^3/uL Lymphocytes # (Manual) 1.46 (1.20-3.80) 10^3/uL Abs Atypical Lymphs Man 0.36 Monocytes # (Manual) 2.01 H (0.30-0.80) 10^3/uL Eosinophils # (Manual) 0.00 (0.00-0.70) 10^3/uL Basophils # (Manual) 0.00 (0.00-0.10) 10^3/uL PT 12.9 H (9.0-11.6) sec INR 1.24 Sodium 143 (136-145) mmol/L Potassium 3.2 L (3.5-5.1) mmol/L Chloride 103 (98-107) mmol/L Carbon Dioxide 28.8 (21.0-32.0) mmol/L Anion Gap 14.4 BUN 7.0 (7.0-18.0) mg/dL Creatinine 0.70 (0.55-1.02) mg/dL Est GFR ( Amer) >60 (>=60 mL/min/1.73m^2) Est GFR (Non-Af Amer) >60 (>=60 mL/min/1.73m^2) BUN/Creatinine Ratio 10.0 Glucose 294 H (74-106) mg/dL Lactate 0.8 (0.4-2.0) mmol/L Calcium 8.8 (8.5-10.1) mg/dL Total Bilirubin 0.7 (0.2-1.0) mg/dL AST 9 L (15-37) U/L ALT 12 L (14-59) U/L Alkaline Phosphatase 79 (46-116) U/L Troponin I High Sens 6.8 7.6 (4.0-51.3) pg/mL Total Protein 6.8 (6.4-8.2) g/dL Albumin 3.1 L (3.4-5.0) g/dL Globulin 3.7 g/dL Albumin/Globulin Ratio 0.8 Urine Color Lt. yellow (YELLOW) Urine Clarity Clear (CLEAR) Urine pH 5.5 (5.0-9.0) Ur Specific [place] <=1.005 A (1.005-1.025) Urine Protein Negative (NEG/TRACE) mg/dL Urine Glucose (UA) >=1000 A (NEGATIVE) mg/dL Urine Ketones 15 A (NEGATIVE) mg/dL Urine Occult Blood Trace-i (NEGATIVE) Urine Nitrite Negative (NEGATIVE) Urine Bilirubin Negative (NEGATIVE) Urine Urobilinogen 0.2 (0.2-1.0) EU/dL Ur Leukocyte Esterase Trace A (NEGATIVE) Urine RBC 2-5 A (0-2) #/HPF Urine WBC 0-2 A (NONE SEEN) #/HPF Ur Squamous Epith Cells Few A (NONE/RARE) #/LPF Urine Crystals None seen (None Seen) #/HPF Urine Bacteria None seen (NONE SEEN) #/HPF Urine Casts None seen (NONE SEEN) #/LPF Urine Mucus None seen (NONE SEEN) Urine Yeast Seen A (NONE SEEN) Ur Culture Indicated? No ECG Data Attestation: I personally reviewed and interpreted this ECG as follows: (Sinus rhythm at 58 bpm, left axis deviation, diffusely flattened T waves, no acute ST segment elevation or T wave inversion) Heart Score History: Slightly/Non-Suspicious ECG: Normal Age: >45-<65 years Risk Factors: >3 Risk Factors/ HX of CAD:2 Troponin: <Normal Limit Total Heart Score Recommendations & Risks:: 3 Discharge Plan Discharge Chief Complaint: Chest Pain Clinical Impression: Atypical chest pain, Near syncope, Hypokalemia, COPD (chronic obstructive pulmonary disease), Leukocytosis Patient Disposition: Admitted as Observation Time of Disposition Decision: 03:49 Condition: Good
[2025-01-27 00:45] LABS: Hematocrit 49.1 % (36.0-48.0); Hemoglobin 16.5 g/dL (12.0-16.0); Mean Corpuscular HGB Conc 33.6 g/dL (29.9-35.2); Mean Corpuscular Hemoglobin 31.0 pg (26.7-34.0); Mean Corpuscular Volume 92.1 fL (81.0-99.0); Platelet Count 322 10^3/uL (150-450); Red Blood Count 5.33 10^6/uL (4.20-5.40); White Blood Count 18.3 10^3/uL (4.0-11.0)
[2025-01-27 00:55] LABS: INR 1.24; Prothrombin Time 12.9 sec (9.0-11.6)
[2025-01-27 00:56] LABS: Anion Gap 14.4
[2025-01-27 00:58] LABS: Alanine Aminotransferase 12 U/L (14-59); Albumin Globulin Ratio 0.8; Albumin Level 3.1 g/dL (3.4-5.0); Alkaline Phosphatase 79 U/L (46-116); Aspartate Amino Transferase 9 U/L (15-37); Blood Urea Nitrogen 7.0 mg/dL (7.0-18.0); Calcium 8.8 mg/dL (8.5-10.1); Carbon Dioxide 28.8 mmol/L (21.0-32.0); Chloride 103 mmol/L (98-107); Estimated GFR (African America >60 (>=60 mL/min/1.73m^2); Estimated GFR (Non-African Ame >60 (>=60 mL/min/1.73m^2); Globulin 3.7 g/dL; Glucose 294 mg/dL (74-106); Potassium 3.2 mmol/L (3.5-5.1); Sodium 143 mmol/L (136-145); Total Protein 6.8 g/dL (6.4-8.2)
[2025-01-27 01:01] LABS: Atypical Lymphocytes % Manual 2.0 %; Atypical Lymphocytes Abs Man 0.36; Basophils Abs Manual 0.00 10^3/uL (0.00-0.10); Basophils Percent Manual 0.0 % (0.2-2.0); Eosinophils Absolute Manual 0.00 10^3/uL (0.00-0.70); Eosinophils Percent Manual 0.0 % (0.9-7.0); Lymphocytes Absolute Manual 1.46 10^3/uL (1.20-3.80); Lymphocytes Percent Manual 8.0 % (20.5-60.0); Monocytes Absolute Manual 2.01 10^3/uL (0.30-0.80); Monocytes Percent Manual 11.0 % (1.7-12.0); Segmented Neut Absolute Manual 14.64 10^3/uL (1.4-6.5); Segmented Neutrophils % Manual 80.0 (43.0-75.0)
[2025-01-27] MEDS: ASPIRIN 81 MG TAB.CHEW 324 MG PO (01:02)
[2025-01-27] MEDS: 0.9 % SODIUM CHLORIDE 500 ML IV (01:03)
--- NOTE | 2025-01-27 01:13 | PC.NURSE ---
Explained to pt urine specimen is needed. She verbalized understanding but states that she doesn't have to go yet.
[2025-01-27 01:57] LABS: Glucose Urine UA >=1000 mg/dL (NEGATIVE)
[2025-01-27 02:05] LABS: Cast Seen? NONE SEEN #/LPF (NONE SEEN); Crystals Seen? None Seen #/HPF (None Seen); Urine Culture Indicated NO
[2025-01-27] MEDS: IPRATROPIUM/ALBUTEROL SULFATE 3 ML AMPUL.NEB IH (02:30)
--- NOTE | 2025-01-27 02:39 | PC.NURSE ---
CP os down to a 2. Denies near-syncope.
[2025-01-27 02:46] LABS: Lactate/Lactic Acid 0.8 mmol/L (0.4-2.0)
[2025-01-27] MEDS: POTASSIUM CHLORIDE 10 MEQ ER TABLET 20 MEQ PO (03:13)
[2025-01-27] MEDS: AZITHROMYCIN 500 MG in 0.9 % SODIUM CHLORIDE 250 ML 250 MG IV (03:33)
--- NOTE | 2025-01-27 03:44 | PC.NURSE ---
Dr Szymanski calls back.
--- OUTSIDE RECORDS SUMMARY | 2025-01-27 04:21 | XMS_ITS | CCD ---
Author Organization [facility] Care Team Providers Care Solution Engineer Name Role Phone PHYSICIAN, DEFAULT Admitting Unavailable PHYSICIAN, DEFAULT Attending Unavailable AICHHOLZ, MAIRA Primary Care Unavailable PHYSICIAN, DEFAULT Admitting Unavailable PHYSICIAN, DEFAULT Attending Unavailable AICHHOLZ, MAIRA Primary Care Unavailable AICHHOLZ, OPERATIONS LIEUTENANT MAIRA Primary Care Unavailable SACHA MONTANO Admitting Unavailable MARILEE .KIAN Consulting Unavailabl e SACHA MONTANO Attending Unavailable Robert Hart Consulting Unavailable HANNAH TOVAR Admitting Unavailable AICHHOLZ, OPERATIONS LIEUTENANT MAIRA Primary Care Unavailable HANNAH TOVAR Attending Unavailable HANNAH TOVAR Consulting Unavailable AICHHOLZ, OPERATIONS LIEUTENANT MAIRA Consulting Unavailable AICHHOLZ, OPERATIONS LIEUTENANT MAIRA Primary Care Unavailable AICHHOLZ, OPERATIONS LIEUTENANT MAIRA Admitting Unavailable AICHHOLZ, OPERATIONS LIEUTENANT MAIRA Attending Unavailable AICHHOLZ, OPERATIONS LIEUTENANT MAIRA Attending Unavailable AICHHOLZ, OPERATIONS LIEUTENANT MAIRA Consulting Unavailable AICHHOLZ, OPERATIONS LIEUTENANT MAIRA Primary Care Unavailable AICHHOLZ, OPERATIONS LIEUTENANT MAIRA Admitting Unavailable Robert Hart Consulting Unavailable AICHHOLZ, OPERATIONS LIEUTENANT MAIRA Attending Unavailable AICHHOLZ, OPERATIONS LIEUTENANT MAIRA Consulting Unavailable AICHHOLZ, OPERATIONS LIEUTENANT MAIRA Primary Care Unavailable AICHHOLZ, OPERATIONS LIEUTENANT MAIRA Admitting Unavailable DR CORINE ANGELA V Consulting Unavailable AICHHOLZ, OPERATIONS LIEUTENANT MAIRA Primary Care Unavailable AICHHOLZ, OPERATIONS LIEUTENANT MAIRA Admitting Unavailable AICHHOLZ, OPERATIONS LIEUTENANT MAIRA Attending Unavailable AICHHOLZ, OPERATIONS LIEUTENANT MAIRA Consulting Unavailable DR TERI MAURO Admitting Unavailable AICHHOLZ, OPERATIONS LIEUTENANT MAIRA Primary Care Unavailable DR TERI MAURO Attending Unavailable DR TERI MAURO Consulting Unavailable DR CORINE ANGELA V Consulting Unavailable DR BRANDON MCFARLANE Consulting Unavailable DR NEHA GATICA Consulting Unavailable YECENIA MONTERO Consulting Unavailable Aichholz MOP HANDLE ASSEMBLER, Maira Unavailable Loc TALBERT, Brandon Primary Care Provider CHAPITO DAMICO Referring Unavailable AICHHOLZ, MAIRA J Primary Care Unavailable Aichholz MOP HANDLE ASSEMBLER, Maira Unavailable Aichholz MOP HANDLE ASSEMBLER, Maira Unavailable CARROL SWENSON Attending Unavailable Chandrika Danielson MA Unavailable Pilar [facility], Lilian Unavailable AICHHOLZ, MAIRA Attending Unavailable AICHHOLZ, [...] STEPHEN RAMOS Attending Unavailable AICHHOLZ, MAIRA J Primary Care Unavailable KIRK MONTES Attending Unavailab le Allergies Allergy Classification Reported Allergen(s) Allergy Type Date of Onset Reaction(s) Facility (2 sources) Ciprofloxacin Drug Allergy 10-11-[address] [facility] Repository (2 sources) metroNIDAZOLE Drug Allergy 10-11-[address] [facility] Repository (6 sources) Penicillins; Translations: [PENICILLINS] Drug allergy (disorder) 10-11-[address] [facility] Repository (2 sources) Sulfamethoxazole / Trimethoprim Drug Allergy 10-11-[address] [facility] Repository (20 sources) Ciprofloxacin; Translations: [CIPROFLOXACIN] Drug Allergy 05-21-20 14 GI intolerance [facility] (20 sources) metroNIDAZOLE; Translations: [METRONIDAZOLE] Drug Allergy 05-21-20 14 GI intolerance [facility] (20 sources) Penicillins Drug Allergy 06-29-19 24 GI intolerance [facility] (20 sources) Sulfamethoxazole Allergy to substance 06-29-19 24 GI intolerance [facility] (20 sources) Trimethoprim Drug Allergy 06-29-19 24 GI intolerance [facility] (4 sources) Sulfamethoxazole / Trimethoprim; Translations: [...] 40 capsule 10/06/2024 10/16/2024 Active Continuous Glucose Strategic Intelligence Officer (FreeStyle Julisa 2 [place]) device (20 sources) Start: 04-29-2024 Continuous Glu cose Strategic Intelligence Officer (FreeStyle Julisa 2 [place]) device Indications: Type 2 diabetes mellitus with hyperglycemia, with long-term current use of insulin ([facility]) USE DIRECTED 1 each 04/29/2024 Active Start: 04-29-2024 Continuous Glu cose Strategic Intelligence Officer (FreeStyle Julisa 2 [place]) device Indications: Type 2 diabetes mellitus with hyperglycemia, with long-term current use of insulin (CMS/HCC) USE DIRECTED 1 each 04/29/2024 Active Start: 04-27-2024 End: 04-27-2025 Continuous Glucose Strategic Intelligence Officer (FreeStyle Julisa 2 [place]) device Indications: Type 2 diabetes mellitus with hyperglycemia, with long-term current use of insulin ([facility]) 1 kit every 14 (fourteen) days 1 each 1 04/27/2024 04/27/2025 Active Start: 04-27-2024 End: 04-27-2025 Continuous Glucose Strategic Intelligence Officer (FreeStyle Julisa 2 [place]) device Indications: Type 2 diabetes mellitus with hyperglycemia, with long-term current use of insulin ([facility]) 1 kit every 14 (fourteen) days 1 each 1 04/27/2024 04/27/2025 Active Start: 01-26-2024 End: 05-06-2024 Continuous Glucose Strategic Intelligence Officer (FreeStyle Julisa 2 [place]) device 01/26/2024 05/06/2024 Discontinued (Therapy completed) Start: 01-26-2024 Continuous Glu cose Strategic Intelligence Officer (FreeStyle Julisa 2 [place]) device 01/26/2024 Active Continuous Glucose Sensor (FreeStyle Julisa 2 Sensor) [facility] (20 sources) Start: 11-04-2024 Continuous Glu cose Sensor (FreeStyle Julisa 2 Sensor) misc Indications: Type 2 diabetes mellitus with hyperglycemia, with long-term current use of insulin ([facility]) USE TO MONITOR BLOOD SUGAR DIRECTED. CHANGE SENSOR EVERY 14 DAYS. 2 each 11/04/2024 Active Start: 04-22-2024 Continuous Glu cose Sensor (FreeStyle Julisa 2 Sensor) misc Indications: Type 2 diabetes mellitus with hyperglycemia, with long-term current use of insulin ([facility]) 1 kit every 14 (fourteen) days 6 each 1 04/22/2024 Active Start: 02-07-2024 End: 05-06-2024 Continuous Glucose Sensor (F reeStyle Julisa 2 Sensor) misc 02/07/2024 05/06/2024 Discontinued (Therapy completed) Start: 02-07-2024 Continuous Glu cose Sensor (FreeStyle Julisa 2 Sensor) [facility] Active empagliflozin 25 mg oral tablet (20 sources) Sodium-Glucose Cotransporter 2 Inhibitor Start: 01-16-2025 End: 02-15-2025 take 1 tablet by mouth once daily empagliflozin (Jardiance) 25 MG Indications: Type 2 diabetes mellitus with diabetic neuropathy, with long-term current use of insulin ([facility]) Take 1 tablet (25 mg) by mouth Daily 30 tablet 2 01/16/2025 02/15/2025 Active Start: 06-24-2023 End: 10-18-2024 take 1 tablet by mouth once daily empagliflozin (Jardiance) 25 MG Indications: Type 2 diabetes mellitus with diabetic neuropathy, with long-term current use of insulin ([facility]) Take 1 tablet (25 mg) by [...] hyperglycemia, with long-term current use of insulin ([facility]) INJECT 15-18-20 UNITS SUBCUTANEOUSLY TO MEAL SIZE [...] dizziness 02/24/2024 04/22/2024 Discontinued (Therapy completed) nystatin 431240 unt/ml topical cream (5 sources) Polyene Antifungal Start: 10-14-2024 End: 10-28-2024 nystatin (Mycostatin) cream Indications: Gill rash of groin Apply topically in the morning and before bedtime. Do all this for 14 days. 60 g 10/14/2024 10/28/2024 Active nystatin [id number] unt/ml / triamcinolone acetonide 1 mg/ml topical [...] 05-19-2024 02-25-2024 Episodic Other aftercare (1 source) halfway (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 of aspirin; Translations: [[facility] CURRENT USE OF ASPIRIN] Onset: 06-11-2022 Episodic Other aftercare (2 sources) halfway (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; Translations: [[facility] CURRENT USE OF INSULIN] Onset: 06-11-2022 Episodic Other aftercare (1 source) Other custodial (current) drug therapy; Translations: [OTH REGULATORY AFFAIRS ASSISTANT CURRENT DRUG THERAPY] Onset: 06-11-2022 Episodic Other aftercare (1 source) 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 of anticoagulants; Translations: [REGULATORY AFFAIRS ASSISTANT CURRNT USE ANTICOAGULANTS] Onset: 11-27-2021 Episodic Other aftercare (20 sources) Long-term current use of insulin; Translations: [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] Onset: 06-09-2024 04-21-2024 [...] SERUMon 01-15-2025 BETAHYDROXYBUTYRATE 1.14 mmol/L High 0.02-0.27 [facility] Comment on above: Performed By: #### [place], [address]23[address]-7, CBCA #### [facility] ([id number]) [address] [place] [address], [place] [address] BEDSIDE GLUCOSEon 01-15-2025 Glucose [Mass/Vol] 275 mg/dL High 65-[address] [facility] Comment on above: Performed By: #### C TUSHAR, , CBCA #### [facility] ([id number]) [address] [place] [address] BLOOD GAS, VENOUSon 01-16-20 25 BASE,EXCESS 4.0 mmol/L High 0.0-2.0 [facility] Comment on above: Performed By: #### C TUSHAR, , CBCA #### [facility] ([id number]) [address] [place] [address]7564 HCO3 (Bld) [Moles/Vol] 31.2 mmol/L High 20.0-24.0 [facility] Comment on above: Performed By: #### Casey FINLEY, , CBCA #### [facility] ([id number]) [address] [place] [address] 88351 INSP. O2 CONC. 21 % Normal [facility] Comment on above: Performed By: #### Casey FINLEY, , CBCA #### [facility] ([id number]) [address] [place] [address] 76184 Oxygen saturation in Blood 64.0 % Normal [facility] Comment on above: Performed By: #### Casey FINLEY , CBCA #### [facility] ([id number]) [address] [place] [address] 27011 PCO2 VENOUS 55.4 mmHg High 35.0-50.0 [facility] Comment on above: Performed By: #### Casey FINLEY, , CBCA #### [facility] ([id number]) [address] [place] [address] 64981 PH VENOUS 7.359 Normal 7.320-7.420 [facility] Comment on above: Performed By: #### C TUSHAR, , CBCA #### [facility] ([id number]) [address] [place] [address] 22974 PO2 VENOUS 35 mmHg Normal 30-50 [facility] Comment on above: Performed By: #### C TUSHAR, , CBCA #### [facility] ([id number]) [address] [place] [address] 48262 POC MARGIE'S TEST N/A Normal [facility] Comment on above: Performed By: #### C TUSHAR, , CBCA #### [facility] ([id number]) [address] [place] [address] 30938 SAMPLE SITE N/A Normal [facility] Comment on above: Performed By: #### C TUSHAR, , CBCA #### [facility] ([id number]) [address] [place] [address] 82218 SAMPLE TYPE VENOUS Normal [facility] Comment on above: Performed By: #### C TUSHAR, , CBCA #### [facility] ([id number]) [address] [place] [address]290 SOURCE OF OXYGEN Room Air Normal [facility] Comment on above: Performed By: #### C TUSHAR, , CBCA #### [facility] ([id number]) [address] [place] [address] 17021 C-REACTIVE PROTEINon 025 CRP [Mass/Vol] mg/L Normal <=0.7 [facility] Comment on above: Performed By: #### C RP #### [facility] ([facility]) [address] [place] [address] VIR CBC WITH AUTO DIFFERENTIALon 01-15-2025 BASOPHILS ABSOLUTE COUNT (10*3/UL) BY AUTOMATED COUNT 0.1 10*3/uL Normal 0.0-0.2 [facility] Comment on above: Performed By: #### C BCA #### [facility] ([address] [address] VIR BASOPHILS RELATIVE PERCENT BY AUTOMATED COUNT 0.6 % Normal [facility] Comment on above: Performed By: #### C BCA #### [facility] ([address] [address] VIR CELLAVISION DIFFERENTIAL TYPE AUTOMATED DIFFERENTIAL Normal [facility] Comment on above: Performed By: #### C BCA #### [facility] ([address] [address] VIR Eosinophils (Bld) [#/Vol] 0.1 10*3/uL Normal 0.0-0.4 [facility] Comment on above: Performed By: #### C BCA #### [facility] ([address] [address] VIR EOSINOPHILS RELATIVE PERCENT BY AUTOMATED COUNT 0.7 % Normal [facility] Comment on above: Performed By: #### C BCA #### [facility] ([address] [address] VIR Erythrocyte distribution width (RBC) [Ratio] 14.1 % Normal 11.5-15 [facility] Comment on above: Performed By: #### C BCA #### [facility] ([address] [address] VIR Hematocrit (Bld) [Volume fraction] 48.9 % High 35-47 [facility] Comment on above: Performed By: #### C BCA #### [facility] ([address] [address] VIR Hemoglobin (Bld) [Mass/Vol] 16.8 g/dL High 11.7-15.5 [facility] Comment on above: Performed By: #### C BCA #### [facility] ([address] [address] VIR LYMPHOCYTES ABSOLUTE COUNT (10*3/UL) BY AUTOMATED COUNT 2.1 10*3/uL Normal 1.0-3.5 [facility] Comment on above: Performed By: #### C BCA #### [facility] ([address] [address] VIR LYMPHOCYTES RELATIVE PERCENT BY AUTOMATED COUNT 23.8 % Normal [facility] Comment on above: Performed By: #### C BCA #### [facility] ([address] [address] VIR MCH (RBC) [Entitic mass] 30.7 pg Normal 27-34 [facility] Comment on above: Performed By: #### C BCA #### [facility] ([address] [address] VIR MCHC (RBC) [Mass/Vol] 34.4 g/dL Normal 32-36 [facility] Comment on above: Performed By: #### C BCA #### [facility] ([address] [address] VIR MCV (RBC) [Entitic vol] 89 fL Normal 80-100 [facility] Comment on above: Performed By: #### C BCA #### [facility] ([address] [place] [address] VIR MONOCYTES ABSOLUTE COUNT (10*3/UL) BY AUTOMATED COUNT 0.6 10*3/uL Normal 0.0-0.9 [facility] Comment on above: Performed By: #### C BCA #### [facility] ([address] [address] VIR MONOCYTES RELATIVE PERCENT BY AUTOMATED COUNT 7.1 % Normal [facility] Comment on above: Performed By: #### C BCA #### [facility] ([address] [place] [address] VIR NEUTROPHILS ABSOLUTE COUNT BY AUTOMATED COUNT 5.9 10*3/uL Normal 1.5-6.6 [facility] Comment on above: Performed By: #### C BCA #### [facility] ([address] [place] [address] VIR NEUTROPHILS RELATIVE PERCENT BY AUTOMATED COUNT 67.8 % Normal [facility] Comment on above: Performed By: #### C BCA #### [facility] ([address] [place] [address] VIR Platelet mean volume (Bld) [Entitic vol] 8.8 fL Normal 7-12 [facility] Comment on above: Performed By: #### C BCA #### [facility] ([address] [place] [address] VIR Platelets (Bld) [#/Vol] 311 10*3/uL Normal 150-450 [facility] Comment on above: Performed By: #### C BCA #### [facility] ([address] [place] [address] VIR RBC COUNT 5.47 X10E12/L High 3.8-5.2 [facility] Comment on above: Performed By: #### C BCA #### [facility] ([address] [place] [address] VIR WBC (Bld) [#/Vol] 8.7 10*3/uL Normal 4-[address] [facility] Comment on above: Performed By: #### C BCA #### [facility] ([address] [place] [address] VIR COMPREHENSIVE METABOLIC PANE Blayne 01-15-2025 Albumin [Mass/Vol] 3.3 g/dL Normal 3.2-5.[address] [facility] Comment on above: Performed By: #### C MP #### [facility] ([facility] [address] [place] [address] VIR ALP [Catalytic activity/Vol] 83 U/L Normal 39-130 [facility] Comment on above: Performed By: #### C MP #### [facility] ([place] [address] [place] [address] VIR ALT [Catalytic activity/Vol] 13 U/L Normal <=31 [facility] Comment on above: Performed By: #### C MP #### [facility] ([place] [address] [place] [address] VIR Anion gap [Moles/Vol] 10 mmol/L Normal 5-15 [facility] Comment on above: Performed By: #### C MP #### [facility] ([place] [address] [place] [address] VIR AST [Catalytic activity/Vol] 15 U/L Normal <=41 [facility] Comment on above: Performed By: #### C MP #### [facility] ([place] [address] [place] [address] VIR Bilirubin [Mass/Vol] 0.6 mg/dL Normal 0.3-1.2 [facility] Comment on above: Performed By: #### C MP #### [facility] ([place] [address] [place] [address] VIR Calcium [Mass/Vol] 8.8 mg/dL Normal 8.5-10.[address] [facility] Comment on above: Performed By: #### C MP #### [facility] ([place] [address] [place] [address] VIR Chloride [Moles/Vol] 97 mmol/L Low 98-109 [facility] Comment on above: Performed By: #### C MP #### [facility] ([place] [address] [place] [address] VIR CO2 [Moles/Vol] 29 mmol/L Normal 22-32 [facility] Comment on above: Performed By: #### C MP #### [facility] ([address] [address] VIR Creatinine [Mass/Vol] 0.73 mg/dL Normal 0.40-1.00 [facility] Comment on above: Result Comment: METH OD TRACEABLE TO IDMS STANDARD Performed By: #### C MP #### [facility] ([address] [address] VIR EGFR (CKD-EPI) NON-RACE DEPENDENT >^90 Normal >=60 [facility] Comment on above: Result Comment: eGFR not reported due to non-numeric value for Creatinine. Reported eGFR is based on the CKD-EPI 2020 equation that does not use a race coefficient. Performed By: #### C MP #### [facility] ([address] [address] VIR Glucose [Mass/Vol] 369 mg/dL High 65-[address] [facility] Comment on above: Performed By: #### C MP #### [facility] ([address] [address] VIR Potassium [Moles/Vol] 3.1 mmol/L Low 3.5-5.0 [facility] Comment on above: Performed By: #### C MP #### [facility] ([address] [address] VIR Protein [Mass/Vol] 6.4 g/dL Normal 6.0-8.[address] [facility] Comment on above: Performed By: #### C MP #### [facility] ([address] [address] VIR Sodium [Moles/Vol] 136 mmol/L Normal 134-[address] [facility] Comment on above: Performed By: #### C MP #### [facility] ([facility]) [address] [place] [address] [place] [address] VIR Urea nitrogen [Mass/Vol] 9 mg/dL Normal 5-27 [facility] Comment on above: Performed By: #### C TUSHAR #### [facility] ([facility]) [address] [place], [place] [address]. [place] [address]RAIN WO CONT[address] CT BRAIN [...] Rowley MD on 01/15/2025 4:29 PM Normal [facility] D-DIMERon 01-15-2025 D DIMER <^150 Normal 1-255 [facility] Comment on above: Result Comment: Resu lts <255 ng/mL DDU: The presensence of a VTE can safely be excluded with a negative D-Dimer result and Wells score. A negative result doesn't exclude the possibility of DIC. The test should be repeated along with other diagnostic tests if the patient's symptoms persist or worsen. Performed By: #### C TUSHAR, 54705-3, CBCA #### [facility] ([id number]) [address] [place] [address], [place] [address] DRUG SCREEN, URINEon 025 AMPHETAMINE/METHAMP Negative Normal Negative [facility] Comment on above: Result Comment: AMPH /METH screening cut off = 1000 ng/mL Performed By: #### C TUSHAR, , CBCA #### [facility] ([id number]) [address] [place] [address] BARBITURATES Negative Normal Negative [facility] Comment on above: Result Comment: Rupa iturates screening cut off value = 200 ng/mL Performed By: #### C TUSHAR, , CBCA #### [facility] ([id number]) [address] [place] [address] BENZODIAZEPINES Negative Normal Negative [facility] Comment on above: Result Comment: Leroy odiazepines screening cut off value = 200 ng/mL Performed By: #### C TUSHAR, , CBCA #### [facility] ([id number]) [address] [place] [address] CANNABINOIDS Negative Normal Negative [facility] Comment on above: Result Comment: Shanice abinoids/THC screening cut off value = 50 ng/mL Performed By: #### C TUSHAR, , CBCA #### [facility] ([id number]) [address] [place] [address] COCAINE METABOLITE Negative Normal Negative [facility] Comment on above: Result Comment: Coca ine screening cut off value = 300 ng/mL Performed By: #### C TUSHAR, , CBCA #### [facility] ([id number]) [address] [place] [address] ECSTASY Negative Normal Negative [facility] Comment on above: Result Comment: Ecst asy screening cut off value = 500 ng/mL Performed By: #### C TUSHAR, , CBCA #### [facility] ([id number]) [address] [place] [address] METHADONE Negative Normal Negative [facility] Comment on above: Result Comment: Meth adone screening cut off value = 300 ng/mL. Performed By: #### C TUSHAR, , CBCA #### [facility] ([id number]) [address] [place] [address] OPIATES Negative Normal Negative [facility] Comment on above: Result Comment: Opia ashley screening cut off value = 300 ng/mL This test is used for the detection of codeine, hydrocodone (>1000 ng/mL), morphine and hydromorphone (>900 ng/mL) in urine. Performed By: #### C TUSHAR, 98550-3, CBCA #### [facility] ([id number]) [address] [place] [address] OXYCODONE Negative Normal Negative [facility] Comment on above: Result Comment: Oxyc odone screening cut off value = 300 ng/mL This test is used for the detection of oxycodone and oxymorphone in urine. Performed By: #### C TUSHAR, 81553-2, CBCA #### [facility] ([id number]) [address] [place] [address] PHENCYCLIDINE Negative Normal Negative [facility] Comment on above: Result Comment: Phen cyclidine screening cut off value = 25 ng/mL Performed By: #### C TUSHAR, , CBCA #### [facility] [facility] ([id number]) [address] [place] [address] 89854 ETHANOLon 01-15-2025 Ethanol [Mass/Vol] mg/dL Normal <=0.[address] [facility] Comment on above: Result Comment: This report is intended for use in clinical monitoring or management of patients. Performed By: #### A LCO #### [facility] ([facility]) [address] [place] [address] 99670 VIR LACTATE W/ REFLEXon 01-16-20 25 LACTATE W/REFLEX 1.1 mmol/L Normal 0.4-2.0 [facility] Comment on above: Order Comment: Resul t did not trigger repeat Lactate, re-order if needed. Performed By: #### L ACTS #### [facility] ([facility]) [address] [place] [address] [place] [address] VIR MAGNESIUMon 01-15-2025 Magnesium [Mass/Vol] 1.8 mg/dL Normal 1.8-2.6 [facility] Comment on above: Performed By: #### M G #### [facility] ([facility]) [address] [place] [address] [place] [address] VIR POCT NURSING URINE MACROSCOP IC UAon 01-15-2025 BILIRUBIN ANISHA Negative Normal Negative [facility] Comment on above: Performed By: #### C TUSHAR, , CBCA #### [facility] ([id number]) [address] [place] [address] 49517 BLOOD/HGB ANISHA Small Abnormal Negative [facility] Comment on above: Performed By: #### Casey FINLEY, , CBCA #### [facility] ([id number]) [address] [place] [address] [place] [address] GLUCOSE ANISHA >=1000 mg/dL Abnormal Negative [facility] Comment on above: Performed By: #### Casey FINLEY, , CBCA #### [facility] ([id number]) [address] [place] [address] 86341 KETONES ANISHA Negative Normal Negative [facility] Comment on above: Performed By: #### Casey FINLEY, , CBCA #### [facility] ([id number]) [address] [place] [address] [place] [address] LEUKOCYTE ESTERASE ANISHA Small Abnormal Negative Pr [facility] Comment on above: Performed By: #### Casey FINLEY, , CBCA #### [facility] ([id number]) [address] [place] [address] 94572 NITRITE ANISHA Negative Normal Negative [facility] Comment on above: Performed By: #### Casey FINLEY, , CBCA #### [facility] ([id number]) [address] [place] [address] 17247 PH ANISHA 5.5 Normal 5.0, 6.0, 6.5, 7.0, 7.5, 8.0, 8.5, 5.5 [facility] Comment on above: Performed By: #### C TUSHAR, , CBCA #### [facility] ([id number]) [address] [place] [address] 13897 PROTEIN ANISHA Negative Normal Negative [facility] Comment on above: Performed By: #### C TUSHAR, , CBCA #### [facility] ([id number]) [address] [place] [address] 17526 SPECIFIC GRAVITY ANISHA 1.010 Normal 1.010, 1.015, 1.020, 1.025 [facility] Comment on above: Performed By: #### C TUSHAR, , CBCA #### [facility] ([id number]) [address] [place] [address] 82282 UROBILINOGEN ANISHA 0.2 E.U./dL Normal [facility] Comment on above: Performed By: #### C TUSHAR, , CBCA #### [facility] ([id number]) [address] [place] [address] 85604 TROP I, HIGH SENSITIVITY 1 H OURon 01-15-2025 TROPONIN I, HIGH SENSITIVITY 4 ng/L Normal <16 [facility] Comment on above: Performed By: #### C TUSHAR, , CBCA #### [facility] ([id number]) [address] [place] [address] 46651 TROPONIN I, HIGH SENSITIVITY 0 HOURon 01-15-2025 TROPONIN I, HIGH SENSITIVITY 4 ng/L Normal <16 [facility] Comment on above: Performed By: #### T NIHS0 #### [facility] ([facility]) [address] [place] [address]. [place] [address] VIR URINE CULTUREon 01-15-2025 Bacteria identified Cx [...] Trimethoprim + Sulfamethoxazole R >=^16.0 F Resistant [facility] Comment on above: Order Comment: Along with <10,000 CFU/mL Normal Urogenital Vikram. Performed By: #### C TUSHAR, 85735-8, CBCA #### [facility] ([id number]) [address] [place] [address], [place] [address] HbA1c (Bld) [Mass fraction]o n 12-14-2024 Interpretation and review of laboratory results Abnormal [facility] Laboratory - Hematology and Cell countson 12-14-2024 HbA1c (Bld) [Mass fraction] 14.1 % [facility] Orders Onlyon 10-28-2024 Orders Only [id number] Denae Dior 1960 F Date Provider Department Center 10/28/2024 [id number], HISTORICAL [facility] Family History Problem Relation Age of Onset Stroke Father Family Status - Relation Status Age at Father Normal [facility] GASTROINTESTINAL PLUS PARASI ASHLEY (HTRX)on [...] [facility] CT ABDOMEN WO/W CONon [address] [address] [address] Scan Report Signed Patient: DENAE DIOR MR#: [id number] : 1960 Acct:[id number] Age/Sex: 63 / F ADM Date: 07/06/24 Loc: CT Attending Dr: Maira Rush NP Ordering Physician: Maira Rush NP Date of Service: 07/06/24 Procedure(s): CT abdomen wo/w con Accession Number(s): [id number] cc: Maira Rush NP [place] [address] Patient Name: DENAE DIOR MRN: [facility]:[id number] date: 1960 Sex: F Assigned Patient Location: CT Current Patient Location: Accession/Order Number: [id number] Exam Date: 07/06/2024 09:03 Report Date: 07/08/2024 [...] Signed By: 07/08/24 1155 DD/ 1152 TD/TT: Steam Blocker: [facility] Radiology, Radiologist, - 07/08/2024 [place] [address] CT Scan Report Signed Patient: DENAE DIOR MR#: [id number] : 1960 Acct:[id number] Age/Sex: 63 / F ADM Date: 07/06/24 Loc: CT Attending Dr: Maira Rush NP Ordering Physician: Maira Rush NP Date of Service: 07/06/24 Procedure(s): CT abdomen wo/w con Accession Number(s): [id number] cc: Maira Rush NP [address] [place] [address] Patient Name: DENAE DIOR MRN: [facility]:[id number] date: 1960 Sex: F Assigned Patient Location: CT Current Patient Location: Accession/Order Number: [id number] Exam Date: 07/06/2024 09:03 Report Date: 07/08/2024 [...] Signed By: 07/08/24 1155 DD/ 1152 TD/TT: Steam Blocker: [facility] Radiology Study observation (narrative) [facility] CT ABDOMEN WO/W CONOrdered B y: Radiologist Radiology on 07-08-2024 [facility] Work Phone: Office Visiton 07-06-2024 Follow-up visit [id number] Denae Dior 1960 F Date Provider Department Center 07/06/2024 Emmett8-CARROL [facility] Family History Problem Relation Age of Onset Stroke Father Family Status - Relation Status Age at Father Level of Service:19777 ND OFFICE/OUTPATIENT ESTABLISHED LOW MDM 20 MIN Normal [facility] ALL RENAL FUNCTION PANELon 1 07-26-2023 Albumin [Mass/Vol] 3.3 g/dL Low 3.4 - 5.0 g/dL [facility] Anion gap [Moles/Vol] 9.2 mmol/L [facility] Calcium [Mass/Vol] 8.7 mg/dL 8.5 - 10. 1 mg/dL [facility] Chloride [Moles/Vol] 101 mmol/L 98 - 10 7 mmol/L [facility] CO2 [Moles/Vol] 31.7 mmol/L 21.0 - 32.0 mmol/L [facility] Creatinine [Mass/Vol] 0.87 mg/dL 0.55 - 1.02 mg/dL [facility] GFR/1.73 sq M.predicted CKD-EPI (S/P/Bld) [Vol rate/Area] >60 >=60 mL/min/1.73m 2 [facility] Glucose [Mass/Vol] 275 mg/dL High 74 - 106 mg/dL [facility] Interpretation and review of laboratory results Abnormal [facility] Phosphate [Mass/Vol] 4.3 mg/dL 2.6 - 4 .7 mg/dL [facility] Potassium [Moles/Vol] 3.9 mmol/L 3.5 - 5.1 mmol/L [facility] Sodium [Moles/Vol] 138 mmol/L 136 - 145 mmol/L [facility] TBH EGFR-NON AF BRAZILIAN >60 >=60 mL/min/1.73m 2 [facility] Urea nitrogen [Mass/Vol] 15 mg/dL 7.0 - 18.0 mg/dL [facility] Urea nitrogen/Creatinine [Mass ratio] 17.2 mg/mg [facility] Glucose (Bld) [Mass/Vol]Orde red By: Candy Baxter on 04-21-2024 Glucose Blood, POC 208 mg/dL [facility] Laboratory - Hematology and Cell countson 04-21-2024 HbA1c (Bld) [Mass fraction] 10.6 % [facility] No Panel InformationOrdered By: Candy Baxter on 04-21-2024 [facility] TB UA (CLEAN/CATCH) MICROSC OPIC IF INDICATEon 04-09-2024 BILIRUBIN URINE Negative NEGATIVE [facility] BLOOD URINE Negative NEGATIVE [facility] Clarity (U) CLEAR CLEAR [facility] Color (U) LT. YELLOW YELLOW [facility] GLUCOSE URINE UA >=1000 Abnormal NEGATIVE mg/dL [facility] Interpretation and review of laboratory results Abnormal [facility] Ketones Ql (U) Negative NEGATIVE mg/dL [facility] Leukocyte esterase Test strip Ql (U) Negative NEGATIVE [facility] NITRITE URINE Negative NEGATIVE [facility] pH (U) 6.0 [pH] 5.0 - 9.0 [facility] PROTEIN URINE Negative NEG/TRACE mg/dL [facility] SPECIFIC GRAVITY URINE 1.010 1.005 - 1.025 [facility] URINE MICROSCOPIC INDICATED NO [facility] UROBILINOGEN URINE 0.2 EU/dL 0.2 - 1.0 EU/dL [facility] URINE CULTURE, ROUTINEon Bacteria identified Cx Nom (U) Urine Culture, Routine [facility] Bacteria identified Cx Nom (U) Mixed urogenital vikram [facility] Bacteria identified Cx Nom (U) 10,000-25,000 colony forming units per mL [facility] Bacteria identified Cx Nom (U) [facility]formed [facility] Bacteria identified Cx Nom (U) [address], [place] [id number] [facility] Bacteria identified Cx Nom (U) Roll Forming Machine Set Up Operator: Josh Moore PhD, Phone: [phone] [facility] CBC AND AUTO DIFFon 01-22-20 ABSOLUTE BASOPHIL 0.0 X10E9/L Normal 0.0-0.[address] [facility] Comment on above: Performed By: #### C TUSHAR, , CBCA #### [facility] ([id number]) [address] [place] [address] 60802 ABSOLUTE NEUTROPHIL 4.2 X10E9/L Normal 1.5-6.6 [facility] Comment on above: Performed By: #### C TUSHAR, , CBCA #### [facility] ([id number]) [address] [place] [address] 47237 Basophils/100 WBC (Bld) 0.4 % Normal [facility] Comment on above: Performed By: #### C TUSHAR, , CBCA #### [facility] ([id number]) [address] [place] [address] 12089 Eosinophils (Bld) [#/Vol] 0.2 10*3/uL Normal 0.0-0.4 [facility] Comment on above: Performed By: #### C TUSHAR, , CBCA #### [facility] ([id number]) [address] [place] [address] 09562 Eosinophils/100 WBC (Bld) 2.6 % Normal [facility] Comment on above: Performed By: #### Casey FINLEY, , CBCA #### [facility] ([id number]) [address] [place] [address] 73275 Erythrocyte distribution width (RBC) [Ratio] 13.5 % Normal 11.5-15.0 [facility] Comment on above: Performed By: #### C TUSHAR, , CBCA #### [facility] ([id number]) [address] [place] [address] 22090 Hematocrit (Bld) [Volume fraction] 48.3 % High 35-47 [facility] Comment on above: Performed By: #### C TUSHAR, , CBCA #### [facility] ([id number]) [address] [place] [address] 79767 Hemoglobin (Bld) [Mass/Vol] 16.0 g/dL High 11.7-15.5 [facility] Comment on above: Performed By: #### C TUSHAR, , CBCA #### [facility] ([id number]) [address] [place] [address] 69405 Lymphocytes (Bld) [#/Vol] 1.9 10*3/uL Normal 1.0-3.5 [facility] Comment on above: Performed By: #### C TUSHAR, , CBCA #### [facility] ([id number]) [address] [place] [address] 77960 Lymphocytes/100 WBC (Bld) 27.1 % Normal [facility] Comment on above: Performed By: #### C TUSHAR, , CBCA #### [facility] ([id number]) [address] [place] [address] 73747 MCH (RBC) [Entitic mass] 31.5 pg Normal 27-34 [facility] Comment on above: Performed By: #### C TUSHAR, , CBCA #### [facility] ([id number]) [address] [place] [address] 95366 MCHC (RBC) [Mass/Vol] 33.1 g/dL Normal 32-36 [facility] Comment on above: Performed By: #### C TUSHAR, , CBCA #### [facility] ([id number]) [address] [place] [address] 88768 MCV (RBC) [Entitic vol] 95 fL Normal 80-100 [facility] Comment on above: Performed By: #### C TUSHAR, , CBCA #### [facility] ([id number]) [address] [place] [address] 82712 Monocytes (Bld) [#/Vol] 0.7 10*3/uL Normal 0-0.9 [facility] Comment on above: Performed By: #### C TUSHAR, , CBCA #### [facility] ([id number]) [address] [place] [address] 71948 Monocytes/100 WBC (Bld) 10.0 % Normal [facility] Comment on above: Performed By: #### [place] FIN[place], , CBCA #### [facility] ([id number]) [address] [place] [address] 62849 Neutrophils/100 WBC (Bld) 59.9 % Normal [facility] Comment on above: Performed By: #### [place] FINLEY, , CBCA #### [facility] ([id number]) [address] [place] [address] 92322 Platelet mean volume (Bld) [Entitic vol] 9.0 fL Normal 7-12 [facility] Comment on above: Performed By: #### [place] FINLEY, , CBCA #### [facility] ([id number]) [address] [place] [address] 40518 Platelets (Bld) [#/Vol] 264 10*3/uL Normal 150-450 [facility] Comment on above: Performed By: #### C TUSHAR, , CBCA #### [facility] ([id number]) [address] [place] [address] 70388 RBC COUNT 5.07 X10E12/L Normal 3.80-5.20 [facility] Comment on above: Performed By: #### C TUSHAR, , CBCA #### [facility] ([id number]) [address] [place] [address] 27772 WBC (Bld) [#/Vol] 7.1 10*3/uL Normal 4.0-11.[address] [facility] Comment on above: Performed By: #### C TUSHAR, , CBCA #### [facility] ([id number]) [address] [place] [address] 42870 COMPREHENSIVE METABOLIC PANE Blayne 01-22-2024 Albumin [Mass/Vol] 3.1 g/dL Low 3.2-5.[address] [facility] Comment on above: Performed By: #### C TUSHAR, , CBCA #### [facility] ([id number]) [address] [place] [address] 22536 ALP [Catalytic activity/Vol] 98 U/L Normal 39-130 [facility] Comment on above: Performed By: #### C TUSHAR, , CBCA #### [facility] ([id number]) [address] [place] [address] 54525 ALT [Catalytic activity/Vol] 21 U/L Normal 0-31 [facility] Comment on above: Performed By: #### C TUSHAR, , CBCA #### [facility] ([id number]) [address] [place] [address] 90245 Anion gap [Moles/Vol] 7 mmol/L Normal 5-15 [facility] Comment on above: Performed By: #### C TUSHAR, , CBCA #### [facility] ([id number]) [address] [place] [address] 40954 AST [Catalytic activity/Vol] 19 U/L Normal 0-41 [facility] Comment on above: Performed By: #### C TUSHAR, , CBCA #### [facility] ([id number]) [address] [place] [address] 54389 Bilirubin [Mass/Vol] 0.5 mg/dL Normal 0.3-1.2 [facility] Comment on above: Performed By: #### C TUSHAR, , CBCA #### [facility] ([id number]) [address] [place] [address] 87657 Calcium [Mass/Vol] 8.9 mg/dL Normal 8.5-10.[address] [facility] Comment on above: Performed By: #### C TUSHAR, , CBCA #### [facility] ([id number]) [address] [place] [address] 14136 Chloride [Moles/Vol] 100 mmol/L Normal 98-109 [facility] Comment on above: Performed By: #### C TUSHAR, , CBCA #### [facility] ([id number]) [address] [place] [address] 19938 CO2 [Moles/Vol] 31 mmol/L Normal 22-32 [facility] Comment on above: Performed By: #### C TUSHAR, , CBCA #### [facility] ([id number]) [address] [place] [address] 20594 Creatinine [Mass/Vol] 0.51 mg/dL Normal 0.40-1.00 [facility] Comment on above: Result Comment: METH OD TRACEABLE TO IDMS STANDARD Performed By: #### C TUSHAR, , CBCA #### [facility] ([id number]) [address] [place] [address] 69780 eGFR (CKD-EPI) NON-RACE DEPENDENT >90 Normal >59 [facility] Comment on above: Result Comment: Reported eGFR is based on the CKD-EPI 2020 equation that does not use a race coefficient. Performed By: #### C TUSHAR, , CBCA #### [facility] ([id number]) [address] [place] [address] 95214 Glucose [Mass/Vol] 153 mg/dL High 65-[address] [facility] Comment on above: Performed By: #### C TUSHAR, , CBCA #### [facility] ([id number]) [address] [place] [address] 23178 Potassium [Moles/Vol] 4.0 mmol/L Normal 3.5-5.0 [facility] Comment on above: Performed By: #### C TUSHAR, , CBCA #### [facility] ([id number]) [address] [place] [address] 06221 Protein [Mass/Vol] 6.5 g/dL Normal 6.0-8.[address] [facility] Comment on above: Performed By: #### C TUSHAR, , CBCA #### [facility] ([id number]) [address] [place] [address] 35956 Sodium [Moles/Vol] 138 mmol/L Normal 134-[address] [facility] Comment on above: Performed By: #### C TUSHAR, , CBCA #### [facility] ([id number]) [address] [place] [address] 81212 Urea nitrogen [Mass/Vol] 20 mg/dL Normal 5-27 [facility] Comment on above: Performed By: #### C TUSHAR, , CBCA #### [facility] ([id number]) [address] [place] [address] MAGNESIUMon 01-22-2024 Magnesium [Mass/Vol] 2.2 mg/dL Normal 1.8-2.6 [facility] Comment on above: Performed By: #### [place], [address]-5, CBCA #### [facility] ([id number]) [address] [place] [address] 44977 XR DEXA BONE DENSITYon 10-02 XR DEXA [...] by: ROBERT HART Date: 2022-10-02 12:08 Normal [facility] LIPID PROFILEon 08-09-2022 CHOL-HDL RATIO NORM SEE BELOW Normal [facility] Comment on above: Result Comment: 3.3 - 4.4 LOW RISK 4.4 - 7.1 AVERAGE RISK 7.1 - 11.0 MODERATE RISK >11.0 HIGH RISK Performed By: #### M ALBR #### [facility] [address] [place] [address] [address] Maru Disla Cholesterol [Mass/Vol] 110 mg/dL Normal <=200 Th [facility] Comment on above: Performed By: #### M ALBR #### [facility] [address] [place], [place] [address] Dr. Maru Disla Cholesterol in HDL [Mass/Vol] 38 mg/dL Critically low 40-60 [facility] Comment on above: Performed By: #### M ALBR #### [facility] [address] [place] [address] [address] Maru Disla Cholesterol in LDL [Mass/Vol] 52.4 mg/dL Normal [facility] Comment on above: Performed By: #### M ALBR #### [facility] [address] [place] [address] [address] Maru Disla Cholesterol.total/Mariel sterol in HDL [Mass ratio] 2.9 {ratio} Normal [facility] Comment on above: Performed By: #### M ALBR #### [facility] [address] [place] [address] Dr. Maru Disla HDL NORMAL > or = 60 mg/dl - LOW CARDIOVASCULAR RISK <40 mg/dl - HIGH CARDIOVASCULAR RISK Normal [facility] Comment on above: Performed By: #### M ALBR #### [facility] [address] [place] [address] Dr. Maru Disla LDL CALC NORMAL SEE BELOW Normal [facility] Comment on above: Result Comment: <100 mg/dl OPTIMAL 100 - 129 mg/dl NEAR OR ABOVE OPTIMAL 130 - 159 mg/dl BORDERLINE HIGH 160 - 189 mg/dl HIGH >190 mg/dl VERY HIGH Performed By: #### M ALBR #### [facility] [address] [place] [address] Dr. Maru Disla Triglyceride [Mass/Vol] 98 mg/dL Normal <=150 T [facility] Comment on above: Performed By: #### M ALBR #### [facility] [address] [place] [address] Dr. Maru Disla VLDL CALC 19.6 mg/dL Normal [facility] Comment on above: Performed By: #### M ALBR #### [facility] [address] [place] [address] Dr. Maru Disla MICROALBUMIN, RAND URon 03-0 mALB <1.3 Normal <=30.0 [facility] Comment on above: Performed By: #### M ALBR #### [facility] [address] [place] [address] Dr. Maru Disla PROF 14(COMP METB)on 023 Albumin [Mass/Vol] 3.6 g/dL Normal 3.4-5.0 [facility] Comment on above: Performed By: #### M ALBR #### [facility] [address] [place] [address] Dr. Maru Disla Albumin/Globulin [Mass ratio] 0.9 {ratio} Normal [facility] Comment on above: Performed By: #### M ALBR #### [facility] [address] [place] [address] Dr. Maru Disla ALP [Catalytic activity/Vol] 92 U/L Normal 46-116 [facility] Comment on above: Performed By: #### M ALBR #### [facility] [address] [place] [address] Dr. Maru Disla ALT [Catalytic activity/Vol] 22 U/L Normal 14-59 [facility] Comment on above: Performed By: #### M ALBR #### [facility] [address] [place] [address] Dr. Maru Disla Anion gap [Moles/Vol] 13.2 mmol/L Normal [facility] Comment on above: Performed By: #### M ALBR #### [facility] [address] [place] [address] Dr. Maru Disla AST [Catalytic activity/Vol] 17 U/L Normal 15-37 [facility] Comment on above: Performed By: #### M ALBR #### [facility] [address] [place] [address] Dr. Maru Disla Bilirubin [Mass/Vol] 0.4 mg/dL Normal 0.2-1.0 [facility] Comment on above: Performed By: #### M ALBR #### [facility] [address] [place] [address] Dr. Maru Disla Calcium [Mass/Vol] 9.3 mg/dL Normal 8.5-10.1 [facility] Comment on above: Performed By: #### M ALBR #### [facility] [address] [place] [address] Dr. Maru Disla Chloride [Moles/Vol] 102 mmol/L Normal 98-107 [facility] Comment on above: Performed By: #### M ALBR #### [facility] [address] [place] [address] Dr. Maru Disla CO2 [Moles/Vol] 29.7 mmol/L Normal 21.0-32.0 [facility] Comment on above: Performed By: #### M ALBR #### [facility] [address] [place] [address] Dr. Maru Disla Creatinine [Mass/Vol] 0.74 mg/dL Normal 0.55-1.02 [facility] Comment on above: Performed By: #### M ALBR #### [facility] [address] [place] [address] Dr. Maru Disla EGFR-AF BRAZILIAN >60 Normal >=60 [facility] Comment on above: Performed By: #### M ALBR #### [facility] [address] [place] [address] Dr. Maru Disla EGFR-NON AF BRAZILIAN >60 Normal >=60 [facility] Comment on above: Performed By: #### M ALBR #### [facility] [address] [place] [address] Dr. Maru Disla Globulin (S) [Mass/Vol] 3.9 g/dL Normal [facility] Comment on above: Performed By: #### M ALBR #### [facility] [address] [place] [address] Dr. Maru Disla Glucose [Mass/Vol] 271 mg/dL Critically high 74-106 [facility] Comment on above: Performed By: #### M ALBR #### [facility] [address] [place] [address] Dr. Maru Disla Potassium [Moles/Vol] 3.9 mmol/L Normal 3.5-5.1 [facility] Comment on above: Performed By: #### M ALBR #### [facility] [address] [place] [address] Dr. Maru Disla Protein [Mass/Vol] 7.5 g/dL Normal 6.4-8.2 [facility] Comment on above: Performed By: #### M ALBR #### [facility] [address] [address] [address] Maru Disla Sodium [Moles/Vol] 141 mmol/L Normal 136-145 [facility] Comment on above: Performed By: #### M ALBR #### [facility] [address] [address] [address] Maru Disla Urea nitrogen [Mass/Vol] 8.0 mg/dL Normal 7.0-18.0 [facility] Comment on above: Performed By: #### M ALBR #### [facility] [address] [address] [address] Maru Disla Urea nitrogen/Creatinine [Mass ratio] 10.8 mg/mg Normal [facility] Comment on above: Performed By: #### M ALBR #### [facility] [address] [address] [address] Maru Disla MG MAMM SCREEN 3D BALDO CADon 06-21-2022 MG MAMM SCREEN 3D BALDO CAD Patient: DENAE DIOR Exam Date: 06/21/2022 : 1960 Gender:F Ordering : [employer] Admission #: [id number] Family : Order #: [id number] CLICK HERE TO VIEW EXAM RADIOLOGY REPORT [...] breast cancer at age 64. LOCATION: [facility] BREAST COMPOSITION: Scattered areas fibroglandular [...] MD on 06/21/2022 at 10:10 Normal [facility] HEMOGLOBINon 06-20-2022 Hemoglobin (Bld) [Mass/Vol] 15.1 g/dL Normal 12.0-16.0 [facility] Comment on above: Performed By: #### B MP #### [facility] [address] [place] [address] Dr. Maru Disla BNPon 04-09-2022 Natriuretic peptide B (Bld) [Mass/Vol] 824.0 pg/mL Normal <=900.0 [facility] Comment on above: Performed By: #### M ALBR #### [facility] [address] [place] [address] Dr. Maru Disla CARDIAC BREANNE ADMITon 022 CK [Catalytic activity/Vol] 364 U/L Critically high 26-192 [facility] Comment on above: Performed By: #### P OCGLUC #### [facility] [address] [place] [address] Dr. Maru Disla CK.MB [Mass/Vol] 5.60 ng/mL Critically high <=3.60 [facility] Comment on above: Performed By: #### P OCGLUC #### [facility] [address] [place] [address] Dr. Maru Disla HSTROP 454.7 pg/mL Critically high 4.0-51.3 [facility] Comment on above: Result Comment: CUT- OFF POINTS HAVE BEEN ESTABLISHED BASED ON THE FOURTH UNIVERSAL DEFINITIONS OF MYOCARDIAL INFARCTION. THE UPPER REFERENCE LIMIT (URL) OF TROPONIN, DEFINED THE 99TH PERCENTILE OF cTnI DISTRIBUTION IN A REFERENCE POPULATION, HAS BEEN CONFIRMED THE DECISION THRESHOLD FOR [place] DIAGNOSIS. Performed By: #### P OCGLUC #### [facility] [address] [place] [address] Dr. Maru Disla REDD 137 ng/mL Critically high 9-82 [facility] Comment on above: Performed By: #### P OCGLUC #### [facility] [address] [address] [address] Maru Disla CBC AUTO DIFFon 04-09-2022 BASO # 0.0 103/ul Normal 0.0-0.1 [facility] Comment on above: Performed By: #### A BG #### [facility] [address] [address] [address] Maru Disla Basophils/100 WBC (Bld) 0.2 % Normal 0.2-2.0 [facility] Comment on above: Performed By: #### A BG #### [facility] [address] [address] [address] Maru Disla EO # 0.0 103/ul Normal 0.0-0.7 [facility] Comment on above: Performed By: #### A BG #### [facility] [address] [place] [address] Dr. Maru Disla Eosinophils/100 WBC (Bld) 0.0 % Critically low 0.9-7.0 [facility] Comment on above: Performed By: #### A BG #### [facility] [address] [place] [address] Dr. Maru Disla Erythrocyte distribution width (RBC) [Ratio] 13.4 % Normal 11.0-15.0 [facility] Comment on above: Performed By: #### A BG #### [facility] [address] [place] [address] Dr. Maru Disla Hematocrit (Bld) [Volume fraction] 48.3 % Critically high 36.0-48.0 [facility] Comment on above: Performed By: #### A BG #### [facility] [address] [place] [address] Dr. Maru Disla Hemoglobin (Bld) [Mass/Vol] 15.3 g/dL Normal 12.0-16.0 [facility] Comment on above: Performed By: #### A BG #### [facility] [address] [place] [address] Dr. Maru Disla IG # 0.11 10e3/ul Critically high 0.00-0.03 [facility] Comment on above: Performed By: #### A BG #### [facility] [address] [place] [address] Dr. Maru Disla IG % 0.6 % Critically high 0.0-0.5 [facility] Comment on above: Performed By: #### A BG #### [facility] [address] [place] [address] Dr. Maru Disla LYMPH # 1.1 103/ul Critically low 1.2-3.8 [facility] Comment on above: Performed By: #### A BG #### [facility] [address] [place] [address] Dr. Maru Disla Lymphocytes/100 WBC (Bld) 6.1 % Critically low 20.5-60.0 [facility] Comment on above: Performed By: #### A BG #### [facility] [address] [place] [address] Dr. Maru Disla MANUAL DIFF REQ NO Normal [facility] Comment on above: Performed By: #### A BG #### [facility] [address] [place] [address] Dr. Maru Disla MCH (RBC) [Entitic mass] 29.8 pg Normal 26.7-34.0 [facility] Comment on above: Performed By: #### A BG #### [facility] [address] [place] [address] Dr. Maru Disla MCHC (RBC) [Mass/Vol] 31.7 g/dL Normal 29.9-35.2 [facility] Comment on above: Performed By: #### A BG #### [facility] [address] [place] [address] Dr. Maru Disla MCV (RBC) [Entitic vol] 94.2 fL Normal 81.0-99.0 [facility] Comment on above: Performed By: #### A BG #### [facility] [address] [place] [address] Dr. Maru Disla MONO # 0.7 103/ul Normal 0.3-0.8 [facility] Comment on above: Performed By: #### A BG #### [facility] [address] [address] [address] Maru Disla Monocytes/100 WBC (Bld) 3.9 % Normal 1.7-12.0 [facility] Comment on above: Performed By: #### A BG #### [facility] [address] [place] [address] Dr. Maru Disla NEUT # 15.3 103/ul Critically high 1.4-6.5 [facility] Comment on above: Performed By: #### A BG #### [facility] [address] [place] [address] Dr. Maru Disla Neutrophils/100 WBC (Bld) 89.2 % Critically high 43.0-75.0 [facility] Comment on above: Performed By: #### A BG #### [facility] [address] [place] [address] Dr. Maru Disla Platelet mean volume (Bld) [Entitic vol] 10.4 fL Normal 9.5-13.5 [facility] Comment on above: Performed By: #### A BG #### [facility] [address] [place] [address] Dr. Maru Disla PLT 311 103/ul Normal 150-450 [facility] Comment on above: Performed By: #### A BG #### [facility] [address] [place] [address] Dr. Maru Disla RBC 5.13 106/ul Normal 4.20-5.40 [facility] Comment on above: Performed By: #### A BG #### [facility] [address] [place] [address] Dr. Maru Disla WBC 17.2 103/ul Critically high 4.0-11.0 [facility] Comment on above: Performed By: #### A BG #### [facility] [address] [place] [address] Dr. Maru Disla ECHOCARDIO M/2D COMPLETEon 1 06-09-2021 ECHOCARDIO M/2D COMPLETE Patient: DENAE DIOR Exam Date: 04/09/2022 : 1960 Gender:F Ordering : DR TERI BLOCK . Admission #: [id number] Family : Order #: [id number] CLICK HERE TO VIEW EXAM ECHOCARDIOGRAM REPORT [...] Subramanian M.D. on 04/10/2022 at 15:44 Normal [facility] POINT OF CARE GLUCOSEon 11-0 Glucose [Mass/Vol] 171 mg/dL Critically high 74-106 [facility] Comment on above: Performed By: #### P OCGLUC #### [facility] [address] [place] [address] Dr. Maru Disla Glucose [Mass/Vol] 97 mg/dL Normal 74-106 [facility] Comment on above: Performed By: #### M ALBR #### [facility] [address] [address] [address] Maru Disla PROF CHEM 8 (BAS METB)on Anion gap [Moles/Vol] 9.1 mmol/L Normal [facility] Comment on above: Performed By: #### P OCGLUC #### [facility] [address] [address] [address] Maru Disla Calcium [Mass/Vol] 8.7 mg/dL Normal 8.5-10.1 [facility] Comment on above: Performed By: #### P OCGLUC #### [facility] [address] [address] [address] Maru Disla Chloride [Moles/Vol] 104 mmol/L Normal 98-107 [facility] Comment on above: Performed By: #### P OCGLUC #### [facility] [address] [address] [address] Maru Disla CO2 [Moles/Vol] 33.2 mmol/L Critically high 21.0-32.0 [facility] Comment on above: Performed By: #### P OCGLUC #### [facility] [address] [address] [address] Maru Disla Creatinine [Mass/Vol] 0.87 mg/dL Normal 0.55-1.02 [facility] Comment on above: Performed By: #### P OCGLUC #### [facility] [address] [address] [address] Maru Disla EGFR-AF BRAZILIAN >60 Normal >=60 [facility] Comment on above: Performed By: #### P OCGLUC #### [facility] [address] [address] [address] Maru Disla EGFR-NON AF BRAZILIAN >60 Normal >=60 [facility] Comment on above: Performed By: #### P OCGLUC #### [facility] [address] [address] [address] Maru Disla Glucose [Mass/Vol] 115 mg/dL Critically high 74-106 [facility] Comment on above: Performed By: #### P OCGLUC #### [facility] [address] [address] [address] Maru Disla Potassium [Moles/Vol] 4.3 mmol/L Normal 3.5-5.1 [facility] Comment on above: Performed By: #### P OCGLUC #### [facility] [address] [address] [address] Maru Disla Sodium [Moles/Vol] 142 mmol/L Normal 136-145 [facility] Comment on above: Performed By: #### P OCGLUC #### [facility] [address] [place] [address] Dr. Maru Disla Urea nitrogen [Mass/Vol] 36.0 mg/dL Critically high 7.0-18.0 [facility] Comment on above: Performed By: #### P OCGLUC #### [facility] [address] [place] [address] Dr. Maru Disla Urea nitrogen/Creatinine [Mass ratio] 41.4 mg/mg Normal [facility] Comment on above: Performed By: #### P OCGLUC #### [facility] [address] [place] [address] Dr. Maru Disla CARDIAC BREANNE 3-6on 2 CK [Catalytic activity/Vol] 381 U/L Critically high 26-192 [facility] Comment on above: Performed By: #### C MREP #### [facility] [address] [place] [address] Dr. Maru Disla CK.MB [Mass/Vol] 7.91 ng/mL Critically high <=3.60 [facility] Comment on above: Performed By: #### C MREP #### [facility] [address] [place] [address] Dr. Maru Disla HSTROP 766.1 pg/mL Critically high 4.0-51.3 [facility] Comment on above: Result Comment: CUT- OFF POINTS HAVE BEEN ESTABLISHED BASED ON THE FOURTH UNIVERSAL DEFINITIONS OF MYOCARDIAL INFARCTION. THE UPPER REFERENCE LIMIT (URL) OF TROPONIN, DEFINED THE 99TH PERCENTILE OF cTnI DISTRIBUTION IN A REFERENCE POPULATION, HAS BEEN CONFIRMED THE DECISION THRESHOLD FOR [place] DIAGNOSIS. Performed By: #### C MREP #### [facility] [address] [place] [address] Dr. Maru Disla CK [Catalytic activity/Vol] 356 U/L Critically high 26-192 [facility] Comment on above: Performed By: #### C MREP #### [facility] [address] [place] [address] Dr. Maru Disla CK.MB [Mass/Vol] 8.66 ng/mL Critically high <=3.60 [facility] Comment on above: Performed By: #### C MREP #### [facility] [address] [address] [address] Maru Disla HSTROP 610.6 pg/mL Critically high 4.0-51.3 [facility] Comment on above: Result Comment: CUT- OFF POINTS HAVE BEEN ESTABLISHED BASED ON THE FOURTH UNIVERSAL DEFINITIONS OF MYOCARDIAL INFARCTION. THE UPPER REFERENCE LIMIT (URL) OF TROPONIN, DEFINED THE 99TH PERCENTILE OF cTnI DISTRIBUTION IN A REFERENCE POPULATION, HAS BEEN CONFIRMED THE DECISION THRESHOLD FOR AK DIAGNOSIS. Performed By: #### C MREP #### [facility] [address] [address] [address] Maru Disla CARDIAC BREANNE ADMITon 022 CK [Catalytic activity/Vol] 381 U/L Critically high 26-192 [facility] Comment on above: Performed By: #### C MADM #### [facility] [address] [place] [address] Dr. Maru Disla CK.MB [Mass/Vol] 8.07 ng/mL Critically high <=3.60 [facility] Comment on above: Performed By: #### C MADM #### [facility] [address] [place] [address] Dr. Maru Disla HSTROP 220.2 pg/mL Critically high 4.0-51.3 [facility] Comment on above: Result Comment: CUT- OFF POINTS HAVE BEEN ESTABLISHED BASED ON THE FOURTH UNIVERSAL DEFINITIONS OF MYOCARDIAL INFARCTION. THE UPPER REFERENCE LIMIT (URL) OF TROPONIN, DEFINED THE 99TH PERCENTILE OF cTnI DISTRIBUTION IN A REFERENCE POPULATION, HAS BEEN CONFIRMED THE DECISION THRESHOLD FOR AK DIAGNOSIS. Performed By: #### C MADM #### [facility] [address] [place] [address] Dr. Maru Disla REDD 269 ng/mL Critically high 9-82 [facility] Comment on above: Performed By: #### C MADM #### [facility] [address] [place] [address] Dr. Mrau Disla CBC AUTO DIFFon 04-08-2022 BASO # 0.0 103/ul Normal 0.0-0.1 [facility] Comment on above: Performed By: #### M ALBR #### [facility] [address] [address] [address] Maru Disla Basophils/100 WBC (Bld) 0.2 % Normal 0.2-2.0 [facility] Comment on above: Performed By: #### M ALBR #### [facility] [address] [place] [address] Dr. Maru Disla EO # 0.0 103/ul Normal 0.0-0.7 [facility] Comment on above: Performed By: #### M ALBR #### [facility] [address] [place] [address] Dr. Maru Disla Eosinophils/100 WBC (Bld) 0.0 % Critically low 0.9-7.0 [facility] Comment on above: Performed By: #### M ALBR #### [facility] [address] [place] [address] Dr. Maru Disla Erythrocyte distribution width (RBC) [Ratio] 13.4 % Normal 11.0-15.0 [facility] Comment on above: Performed By: #### M ALBR #### [facility] [address] [place] [address] Dr. Maru Disla Hematocrit (Bld) [Volume fraction] 52.7 % Critically high 36.0-48.0 [facility] Comment on above: Performed By: #### M ALBR #### [facility] [address] [place] [address] Dr. Maru Disla Hemoglobin (Bld) [Mass/Vol] 16.8 g/dL Critically high 12.0-16.0 [facility] Comment on above: Performed By: #### M ALBR #### [facility] [address] [place] [address] Dr. aMru Disla IG # 0.13 10e3/ul Critically high 0.00-0.03 [facility] Comment on above: Performed By: #### M ALBR #### [facility] [address] [place] [address] Dr. Maru Disla IG % 0.6 % Critically high 0.0-0.5 [facility] Comment on above: Performed By: #### M ALBR #### [facility] [address] [address] [address] Maru Disla LYMPH # 0.8 103/ul Critically low 1.2-3.8 [facility] Comment on above: Performed By: #### M ALBR #### [facility] [address] [address] [address] Maru Disla Lymphocytes/100 WBC (Bld) 3.4 % Critically low 20.5-60.0 [facility] Comment on above: Performed By: #### M ALBR #### [facility] [address] [address] [address] Maru Disla MANUAL DIFF REQ NO Normal [facility] Comment on above: Performed By: #### M ALBR #### [facility] [address] [place] [address] Dr. Maru Disla MCH (RBC) [Entitic mass] 29.4 pg Normal 26.7-34.0 [facility] Comment on above: Performed By: #### M ALBR #### [facility] [address] [address] [address] Maru Disla MCHC (RBC) [Mass/Vol] 31.9 g/dL Normal 29.9-35.2 [facility] Comment on above: Performed By: #### M ALBR #### [facility] [address] [place] [address] Dr. Maru Disla MCV (RBC) [Entitic vol] 92.1 fL Normal 81.0-99.0 [facility] Comment on above: Performed By: #### M ALBR #### [facility] [address] [address] [address] Maru Disla MONO # 0.8 103/ul Normal 0.3-0.8 [facility] Comment on above: Performed By: #### M ALBR #### [facility] [address] [address] [address] Maru Disla Monocytes/100 WBC (Bld) 3.4 % Normal 1.7-12.0 [facility] Comment on above: Performed By: #### M ALBR #### [facility] [address] [address] [address] Maru Disla NEUT # 21.8 103/ul Critically high 1.4-6.5 [facility] Comment on above: Performed By: #### M ALBR #### [facility] [address] [address] [address] Maru Disla Neutrophils/100 WBC (Bld) 92.4 % Critically high 43.0-75.0 [facility] Comment on above: Performed By: #### M ALBR #### [facility] [address] [address] [address] Maru Disla Platelet mean volume (Bld) [Entitic vol] 10.4 fL Normal 9.5-13.5 [facility] Comment on above: Performed By: #### M ALBR #### [facility] [address] [place] [address] Dr. Maru Disla PLT 335 103/ul Normal 150-450 [facility] Comment on above: Performed By: #### M ALBR #### [facility] [address] [place] [address] Dr. Maru Disla RBC 5.72 106/ul Critically high 4.20-5.40 [facility] Comment on above: Performed By: #### M ALBR #### [facility] [address] [place] [address] Dr. Maru Disla WBC 23.5 103/ul Critically high 4.0-11.0 [facility] Comment on above: Performed By: #### M ALBR #### [facility] [address] [place] [address] Dr. Maru Disla POINT OF CARE GLUCOSEon - Glucose [Mass/Vol] 275 mg/dL Critically high 74-106 [facility] Comment on above: Performed By: #### P OCGLUC #### [facility] [address] [place] [address] Dr. Maru Disla Glucose [Mass/Vol] 161 mg/dL Critically high 74-106 [facility] Comment on above: Performed By: #### B MP #### [facility] [address] [address] [address] Maru Disla Glucose [Mass/Vol] 140 mg/dL Critically high 74-106 [facility] Comment on above: Performed By: #### P OCGLUC #### [facility] [address] [address] [address] Maru Disla Glucose [Mass/Vol] 219 mg/dL Critically high 74-106 [facility] Comment on above: Performed By: #### P OCGLUC #### [facility] [address] [place] [address] Dr. Maru Dilsa PROF CHEM 8 (BAS METB)on Anion gap [Moles/Vol] 14.0 mmol/L Normal [facility] Comment on above: Performed By: #### M ALBR #### [facility] [address] [place] [address] Dr. Maru Disla Calcium [Mass/Vol] 9.3 mg/dL Normal 8.5-10.1 [facility] Comment on above: Performed By: #### M ALBR #### [facility] [address] [place] [address] Dr. Maru Disla Chloride [Moles/Vol] 98 mmol/L Normal 98-107 [facility] Comment on above: Performed By: #### M ALBR #### [facility] [address] [place] [address] Dr. Maru Disla CO2 [Moles/Vol] 30.5 mmol/L Normal 21.0-32.0 [facility] Comment on above: Performed By: #### M ALBR #### [facility] [address] [place] [address] Dr. Maru Disla Creatinine [Mass/Vol] 1.09 mg/dL Critically high 0.55-1.02 [facility] Comment on above: Performed By: #### M ALBR #### [facility] [address] [place] [address] Dr. Maru Disla EGFR-AF BRAZILIAN >60 Normal >=60 [facility] Comment on above: Performed By: #### M ALBR #### [facility] [address] [address] [address] Maru Disla EGFR-NON AF BRAZILIAN 51 mL/min/1.73m2 Critically low >=60 [facility] Comment on above: Performed By: #### M ALBR #### [facility] [address] [address] [address] Maru Disla Glucose [Mass/Vol] 242 mg/dL Critically high 74-106 [facility] Comment on above: Performed By: #### M ALBR #### [facility] [address] [address] [address] Maru Disla Potassium [Moles/Vol] 3.5 mmol/L Normal 3.5-5.1 [facility] Comment on above: Performed By: #### M ALBR #### [facility] [address] [place] [address] Dr. Maru Disla Sodium [Moles/Vol] 139 mmol/L Normal 136-145 [facility] Comment on above: Performed By: #### M ALBR #### [facility] [address] [address] [address] Maru Disla Urea nitrogen [Mass/Vol] 32.0 mg/dL Critically high 7.0-18.0 [facility] Comment on above: Performed By: #### M ALBR #### [facility] [address] [address] [address] Maru Disla Urea nitrogen/Creatinine [Mass ratio] 29.4 mg/mg Normal [facility] Comment on above: Performed By: #### M ALBR #### [facility] [address] [address] [address] Maru Disla CBC AUTO DIFFon 04-07-2022 BASO # 0.0 103/ul Normal 0.0-0.1 [facility] Comment on above: Performed By: #### P OCGLUC #### [facility] [address] [address] [address] Maru Disla Basophils/100 WBC (Bld) 0.2 % Normal 0.2-2.0 [facility] Comment on above: Performed By: #### P OCGLUC #### [facility] [address] [address] [address] Maru Disla EO # 0.0 103/ul Normal 0.0-0.7 [facility] [facility] Comment on above: Performed By: #### P OCGLUC #### [facility] [address] [address] [address] Maru Disla Eosinophils/100 WBC (Bld) 0.0 % Critically low 0.9-7.0 [facility] Comment on above: Performed By: #### P OCGLUC #### [facility] [address] [address] [address] Maru Disla Erythrocyte distribution width (RBC) [Ratio] 13.6 % Normal 11.0-15.0 [facility] Comment on above: Performed By: #### P OCGLUC #### [facility] [address] [place] [address] Dr. Maru Disla Hematocrit (Bld) [Volume fraction] 48.1 % Critically high 36.0-48.0 [facility] Comment on above: Performed By: #### P OCGLUC #### [facility] [address] [place] [address] Dr. Maru Disla Hemoglobin (Bld) [Mass/Vol] 14.7 g/dL Normal 12.0-16.0 [facility] Comment on above: Performed By: #### P OCGLUC #### [facility] [address] [address] [address] Maru Disla IG # 0.16 10e3/ul Critically high 0.00-0.03 [facility] Comment on above: Performed By: #### P OCGLUC #### [facility] [address] [address] [address] Maru Disla IG % 0.6 % Critically high 0.0-0.5 [facility] Comment on above: Performed By: #### P OCGLUC #### [facility] [address] [address] [address] Maru Disla LYMPH # 1.0 103/ul Critically low 1.2-3.8 [facility] Comment on above: Performed By: #### P OCGLUC #### [facility] [address] [address] [address] Maru Disla Lymphocytes/100 WBC (Bld) 4.1 % Critically low 20.5-60.0 [facility] Comment on above: Performed By: #### P OCGLUC #### [facility] [address] [address] [address] Maru Disla MANUAL DIFF REQ NO Normal [facility] Comment on above: Performed By: #### P OCGLUC #### [facility] [address] [address] [address] Maru Disla MCH (RBC) [Entitic mass] 29.4 pg Normal 26.7-34.0 [facility] Comment on above: Performed By: #### P OCGLUC #### [facility] [address] [place] [address] Dr. Maru Disla MCHC (RBC) [Mass/Vol] 30.6 g/dL Normal 29.9-35.2 [facility] Comment on above: Performed By: #### P OCGLUC #### [facility] [address] [place] [address] Dr. Maru Disla MCV (RBC) [Entitic vol] 96.2 fL Normal 81.0-99.0 [facility] Comment on above: Performed By: #### P OCGLUC #### [facility] [address] [place] [address] Dr. Maru Disla MONO # 0.8 103/ul Normal 0.3-0.8 [facility] Comment on above: Performed By: #### P OCGLUC #### [facility] [address] [place] [address] Dr. Maru Disla Monocytes/100 WBC (Bld) 3.2 % Normal 1.7-12.0 [facility] Comment on above: Performed By: #### P OCGLUC #### [facility] [address] [place] [address] Dr. Maru Disla NEUT # 23.1 103/ul Critically high 1.4-6.5 [facility] Comment on above: Performed By: #### P OCGLUC #### [facility] [address] [address] [address] Maru Disla Neutrophils/100 WBC (Bld) 91.9 % Critically high 43.0-75.0 [facility] Comment on above: Performed By: #### P OCGLUC #### [facility] [address] [address] [address] Maru Disla Platelet mean volume (Bld) [Entitic vol] 10.5 fL Normal 9.5-13.5 [facility] Comment on above: Performed By: #### P OCGLUC #### [facility] [address] [address] [address] Maru Disla PLT 300 103/ul Normal 150-450 [facility] Comment on above: Performed By: #### P OCGLUC #### [facility] [address] [address] [address] Maru Disla RBC 5.00 106/ul Normal 4.20-5.40 [facility] Comment on above: Performed By: #### P OCGLUC #### [facility] [address] [address] [address] Maru Disla WBC 25.1 103/ul Critically high 4.0-11.0 [facility] Comment on above: Performed By: #### P OCGLUC #### [facility] [address] [address] [address] Maru Disla POINT OF CARE GLUCOSEon Glucose [Mass/Vol] 247 mg/dL Critically high 74-106 [facility] Comment on above: Performed By: #### B MP #### [facility] [address] [address] [address] Maru Disla Glucose [Mass/Vol] 182 mg/dL Critically high -106 [facility] Comment on above: Performed By: #### A BG #### [facility] [address] [address] [address] Maru Disla Glucose [Mass/Vol] 177 mg/dL Critically high 74-106 [facility] Comment on above: Performed By: #### P OCGLUC #### [facility] [address] [address] [address] Maru Disla Glucose [Mass/Vol] 191 mg/dL Critically high 74-106 [facility] Comment on above: Performed By: #### P OCGLUC #### [facility] [address] [address] [address] Maru Disla PROF CHEM 8 (BAS METB)on Anion gap [Moles/Vol] 11.4 mmol/L Normal [facility] Comment on above: Performed By: #### M ALBR #### [facility] [address] [place] [address] Dr. Maru Disla Calcium [Mass/Vol] 8.9 mg/dL Normal 8.5-10.1 [facility] Comment on above: Performed By: #### M ALBR #### [facility] [address] [place] [address] Dr. Maru Disla Chloride [Moles/Vol] 108 mmol/L Critically high 98-107 [facility] Comment on above: Performed By: #### M ALBR #### [facility] [address] [place] [address] Dr. Maru Disla CO2 [Moles/Vol] 27.9 mmol/L Normal 21.0-32.0 [facility] Comment on above: Performed By: #### M ALBR #### [facility] [address] [place] [address] Dr. Maru Disla Creatinine [Mass/Vol] 0.84 mg/dL Normal 0.55-1.02 [facility] Comment on above: Performed By: #### M ALBR #### [facility] [address] [place] [address] Dr. Maru Disla EGFR-AF BRAZILIAN >60 Normal >=60 [facility] Comment on above: Performed By: #### M ALBR #### [facility] [address] [place] [address] Dr. Maru Disla EGFR-NON AF BRAZILIAN >60 Normal >=60 [facility] Comment on above: Performed By: #### M ALBR #### [facility] [address] [address] [address] Maru Disla Glucose [Mass/Vol] 202 mg/dL Critically high 74-106 [facility] Comment on above: Performed By: #### M ALBR #### [facility] [address] [address] [address] Maru Disla Potassium [Moles/Vol] 4.3 mmol/L Normal 3.5-5.1 [facility] Comment on above: Performed By: #### M ALBR #### [facility] [address] [address] [address] Maru Disla Sodium [Moles/Vol] 143 mmol/L Normal 136-145 [facility] Comment on above: Performed By: #### M ALBR #### [facility] [address] [address] [address] Maru Disla Urea nitrogen [Mass/Vol] 26.0 mg/dL Critically high 7.0-18.0 [facility] Comment on above: Performed By: #### M ALBR #### [facility] [address] [address] [address] Maru Disla Urea nitrogen/Creatinine [Mass ratio] 31.0 mg/mg Normal [facility] Comment on above: Performed By: #### M ALBR #### [facility] [address] [address] [address] Maru Disla CBC AUTO DIFFon 04-06-2022 BASO # 0.0 103/ul Normal 0.0-0.1 [facility] Comment on above: Performed By: #### B MP #### [facility] [address] [address] [address] Maru Disla Basophils/100 WBC (Bld) 0.1 % Critically low 0.2-2.0 [facility] Comment on above: Performed By: #### B MP #### [facility] [address] [address] [address] Maru Disla EO # 0.0 103/ul Normal 0.0-0.7 [facility] Comment on above: Performed By: #### B MP #### [facility] [address] [place] [address] Dr. Maru Disla Eosinophils/100 WBC (Bld) 0.1 % Critically low 0.9-7.0 [facility] Comment on above: Performed By: #### B MP #### [facility] [address] [place] [address] Dr. Maru Disla Erythrocyte distribution width (RBC) [Ratio] 13.4 % Normal 11.0-15.0 [facility] Comment on above: Performed By: #### B MP #### [facility] [address] [place] [address] Dr. Maru Disla Hematocrit (Bld) [Volume fraction] 48.5 % Critically high 36.0-48.0 [facility] Comment on above: Performed By: #### B MP #### [facility] [address] [place] [address] Dr. Maru Disla Hemoglobin (Bld) [Mass/Vol] 15.5 g/dL Normal 12.0-16.0 [facility] Comment on above: Performed By: #### B MP #### [facility] [address] [place] [address] Dr. Maru Disla IG # 0.09 10e3/ul Critically high 0.00-0.03 [facility] Comment on above: Performed By: #### B MP #### [facility] [address] [place] [address] Dr. Maru Disla IG % 0.5 % Normal 0.0-0.5 [facility] Comment on above: Performed By: #### B MP #### [facility] [address] [place] [address] Dr. Maru Disla LYMPH # 0.9 103/ul Critically low 1.2-3.8 [facility] Comment on above: Performed By: #### B MP #### [facility] [address] [place] [address] Dr. Maru Disla Lymphocytes/100 WBC (Bld) 4.5 % Critically low 20.5-60.0 [facility] Comment on above: Performed By: #### B MP #### [facility] [address] [place] [address] Dr. Maru Disla MANUAL DIFF REQ NO Normal [facility] Comment on above: Performed By: #### B MP #### [facility] [address] [place] [address] Dr. Maru Disla MCH (RBC) [Entitic mass] 30.0 pg Normal 26.7-34.0 [facility] Comment on above: Performed By: #### B MP #### [facility] [address] [place] [address] Dr. Maru Disla MCHC (RBC) [Mass/Vol] 32.0 g/dL Normal 29.9-35.2 [facility] Comment on above: Performed By: #### B MP #### [facility] [address] [place] [address] Dr. Maru Disla MCV (RBC) [Entitic vol] 93.8 fL Normal 81.0-99.0 [facility] Comment on above: Performed By: #### B MP #### [facility] [address] [place] [address] Dr. Maru Disla MONO # 0.7 103/ul Normal 0.3-0.8 [facility] Comment on above: Performed By: #### B MP #### [facility] [address] [place] [address] Dr. Maru Disla Monocytes/100 WBC (Bld) 3.5 % Normal 1.7-12.0 [facility] Comment on above: Performed By: #### B MP #### [facility] [address] [place] [address] Dr. Maru Disla NEUT # 18.2 103/ul Critically high 1.4-6.5 [facility] Comment on above: Performed By: #### B MP #### [facility] [address] [place] [address] Dr. Maru Disla Neutrophils/100 WBC (Bld) 91.3 % Critically high 43.0-75.0 [facility] Comment on above: Performed By: #### B MP #### [facility] [address] [address] [address] Maru Disla Platelet mean volume (Bld) [Entitic vol] 11.2 fL Normal 9.5-13.5 [facility] Comment on above: Performed By: #### B MP #### [facility] [address] [address] [address] Maru Disla PLT 232 103/ul Normal 150-450 [facility] Comment on above: Performed By: #### B MP #### [facility] [address] [address] [address] Maru Disla RBC 5.17 106/ul Normal 4.20-5.40 [facility] Comment on above: Performed By: #### B MP #### [facility] [address] [place] [address] Dr. Maru Disla WBC 19.9 103/ul Critically high 4.0-11.0 [facility] Comment on above: Performed By: #### B MP #### [facility] [address] [address] [address] Maru Disla POINT OF CARE GLUCOSEon - Glucose [Mass/Vol] 199 mg/dL Critically high -106 [facility] Comment on above: Performed By: #### P OCGLUC #### [facility] [address] [address] [address] Maru Disla Glucose [Mass/Vol] 109 mg/dL Critically high 74-106 [facility] Comment on above: Performed By: #### A BG #### [facility] [address] [address] [address] Maru Disla Glucose [Mass/Vol] 253 mg/dL Critically high -106 [facility] Comment on above: Performed By: #### P OCGLUC #### [facility] [address] [address] [address] Maru Disla Glucose [Mass/Vol] 194 mg/dL Critically high -106 [facility] Comment on above: Performed By: #### B MP #### [facility] [address] [address] [address] Maru Disla PROF CHEM 8 (BAS METB)on Anion gap [Moles/Vol] 11.2 mmol/L Normal [facility] Comment on above: Performed By: #### B MP #### [facility] [address] [address] [address] Maru Disla Calcium [Mass/Vol] 8.8 mg/dL Normal 8.5-10.1 [facility] Comment on above: Performed By: #### B MP #### [facility] [address] [address] [address] Maru Disla Chloride [Moles/Vol] 105 mmol/L Normal 98-107 [facility] Comment on above: Performed By: #### B MP #### [facility] [address] [address] [address] Maru Disla CO2 [Moles/Vol] 26.8 mmol/L Normal 21.0-32.0 [facility] Comment on above: Performed By: #### B MP #### [facility] [address] [address] [address] Maru Disla Creatinine [Mass/Vol] 0.66 mg/dL Normal 0.55-1.02 [facility] Comment on above: Performed By: #### B MP #### [facility] [address] [address] [address] Maru Disla EGFR-AF BRAZILIAN >60 Normal >=60 [facility] Comment on above: Performed By: #### B MP #### [facility] [address] [address] [address] Maru Disla EGFR-NON AF BRAZILIAN >60 Normal >=60 [facility] Comment on above: Performed By: #### B MP #### [facility] [address] [address] [address] Maru Disla Glucose [Mass/Vol] 191 mg/dL Critically high 74-106 [facility] Comment on above: Performed By: #### B MP #### [facility] [address] [address] [address] Maru Disla Potassium [Moles/Vol] 5.0 mmol/L Normal 3.5-5.1 [facility] Comment on above: Performed By: #### B MP #### [facility] [address] [address] [address] Maru Disla Sodium [Moles/Vol] 138 mmol/L Normal 136-145 [facility] Comment on above: Performed By: #### B MP #### [facility] [address] [address] [address] Maru Disla Urea nitrogen [Mass/Vol] 21.0 mg/dL Critically high 7.0-18.0 [facility] Comment on above: Performed By: #### B MP #### [facility] [address] [address] [address] Maru Disla Urea nitrogen/Creatinine [Mass ratio] 31.8 mg/mg Normal [facility] Comment on above: Performed By: #### B MP #### [facility] [address] [address] [address] Maru Disla XR CHEST 2 Von [...] CORINE ANGELA Date: 2022-04-06 07:14 Normal [facility] BLOOD GASES BTYon 04-05-2022 02 MODE NASAL CANNULA Normal [facility] Comment on above: Performed By: #### A BG #### [facility] [address] [address] [address] Maru Disla ALLENS TEST Positive Normal [facility] Comment on above: Performed By: #### A BG #### [facility] [address] [address] [address] Maru Disla Base excess Calc (Bld) [Moles/Vol] -1.6000 mmol/L Normal -2.0-2.0 [facility] Comment on above: Performed By: #### A BG #### [facility] [address] [address] [address] Maru Disla BIPAP PRESSURE [facility] Comment on above: Performed By: #### A BG #### [facility] [address] [place] [address] Dr. Maru Disla CPAP [facility] Comment on above: Performed By: #### A BG #### [facility] [address] [place] [address] Dr. Maru Disla FIO2 [facility] Comment on above: Performed By: #### A BG #### [facility] [address] [address] [address] Maru Disla HCO3 (Bld) [Moles/Vol] 24.0 mmol/L Normal 22.0-26.0 [facility] Comment on above: Performed By: #### A BG #### [facility] [address] [place] [address] Dr. Maru Disla LPM 2 [facility] Comment on above: Performed By: #### A BG #### [facility] [address] [place] [address] Dr. Maru Disla MINUTE VOLUME Normal [facility] Comment on above: Performed By: #### A BG #### [facility] [address] [place] [address] Dr. Maru Disla Oxygen (Bld) [Partial pressure] 56.1 mm[Hg] Critically low 80.0-100.0 [facility] Comment on above: Performed By: #### A BG #### [facility] [address] [place] [address] Dr. Maru Disla Oxygen saturation in Blood 89.9 % Critically low 95.0-100.0 [facility] Comment on above: Performed By: #### A BG #### [facility] [address] [address] [address] Maru Disla PCO2 43.3 mmHg Normal 35.0-45.0 [facility] Comment on above: Performed By: #### A BG #### [facility] [address] [place] [address] Dr. Maru Disla PEEP [facility] Comment on above: Performed By: #### A BG #### [facility] [address] [place] [address] Dr. Maru Disla pH (Bld) 7.352 [pH] Normal 7.350-7.450 [facility] Comment on above: Performed By: #### A BG #### [facility] [address] [place] [address] Dr[facility]u [facility] Comment on above: Performed By: #### A BG #### [facility] [address] [place] [address] Dr. Maru Disla [facility] Comment on above: Performed By: #### A BG #### [facility] [address] [place] [address] Dr. Maru Disla PUNCTURE SITE LR [facility] Comment on above: Performed By: #### A BG #### [facility] [address] [place] [address] Dr. Maru Disla RATE [facility] Comment on above: Performed By: #### A BG #### [facility] [address] [place] [address] Dr. Maru Disla VENT MODE [facility] Comment on above: Performed By: #### A BG #### [facility] [address] [place] [address] Dr. Maru Disla [facility] Comment on above: Performed By: #### A BG #### [facility] [address] [place] [address] Dr. Maru Disla BNPon 04-05-2022 Natriuretic peptide B (Bld) [Mass/Vol] 471.0 pg/mL Normal <=900.0 [facility] Comment on above: Performed By: #### P OCGLUC #### [facility] [address] [address] [address] Maru Disla CBC AUTO DIFFon 04-05-2022 BASO # 0.0 103/ul Normal 0.0-0.1 [facility] Comment on above: Performed By: #### B MP #### [facility] [address] [address] [address] Maru Disla Basophils/100 WBC (Bld) 0.3 % Normal 0.2-2.0 [facility] Comment on above: Performed By: #### B MP #### [facility] [address] [address] [address] Maru Disla EO # 0.0 103/ul Normal 0.0-0.7 [facility] Comment on above: Performed By: #### B MP #### [facility] [address] [place] [address] Dr. Maru Disla Eosinophils/100 WBC (Bld) 0.0 % Critically low 0.9-7.0 [facility] Comment on above: Performed By: #### B MP #### [facility] [address] [place] [address] Dr. Maru Disla Erythrocyte distribution width (RBC) [Ratio] 13.2 % Normal 11.0-15.0 [facility] Comment on above: Performed By: #### B MP #### [facility] [address] [place] [address] Dr. Maru Disla Hematocrit (Bld) [Volume fraction] 52.3 % Critically high 36.0-48.0 [facility] Comment on above: Performed By: #### B MP #### [facility] [address] [place] [address] Dr. Maru Disla Hemoglobin (Bld) [Mass/Vol] 16.6 g/dL Critically high 12.0-16.0 [facility] Comment on above: Performed By: #### B MP #### [facility] [address] [place] [address] Dr. Maru Disla IG # 0.05 10e3/ul Critically high 0.00-0.03 [facility] Comment on above: Performed By: #### B MP #### [facility] [address] [place] [address] Dr. Maru Disla IG % 0.4 % Normal 0.0-0.5 [facility] Comment on above: Performed By: #### B MP #### [facility] [address] [place] [address] Dr. Maru Disla LYMPH # 1.5 103/ul Normal 1.2-3.8 [facility] Comment on above: Performed By: #### B MP #### [facility] [address] [place] [address] Dr. Maru Disla Lymphocytes/100 WBC (Bld) 10.7 % Critically low 20.5-60.0 [facility] Comment on above: Performed By: #### B MP #### [facility] [address] [place] [address] Dr. Maru Disla MANUAL DIFF REQ NO Normal [facility] Comment on above: Performed By: #### B MP #### [facility] [address] [place] [address] Dr. Maru Disla MCH (RBC) [Entitic mass] 29.7 pg Normal 26.7-34.0 [facility] Comment on above: Performed By: #### B MP #### [facility] [address] [place] [address] Dr. Maru Disla MCHC (RBC) [Mass/Vol] 31.7 g/dL Normal 29.9-35.2 [facility] Comment on above: Performed By: #### B MP #### [facility] [address] [place] [address] Dr. Maru Disla MCV (RBC) [Entitic vol] 93.6 fL Normal 81.0-99.0 [facility] Comment on above: Performed By: #### B MP #### [facility] [address] [place] [address] Dr. Maru Disla MONO # 1.5 103/ul Critically high 0.3-0.8 [facility] Comment on above: Performed By: #### B MP #### [facility] [address] [address] [address] Maru Disla Monocytes/100 WBC (Bld) 11.0 % Normal 1.7-12.0 [facility] Comment on above: Performed By: #### B MP #### [facility] [address] [address] [address] Maru Disla NEUT # 10.8 103/ul Critically high 1.4-6.5 [facility] Comment on above: Performed By: #### B MP #### [facility] [address] [address] [address] Maru Disla Neutrophils/100 WBC (Bld) 77.6 % Critically high 43.0-75.0 [facility] Comment on above: Performed By: #### B MP #### [facility] [address] [place] [address] Dr. Maru Disla Platelet mean volume (Bld) [Entitic vol] 10.1 fL Normal 9.5-13.5 [facility] Comment on above: Performed By: #### B MP #### [facility] [address] [place] [address] Dr. Maru Disla PLT 315 103/ul Normal 150-450 [facility] Comment on above: Performed By: #### B MP #### [facility] [address] [place] [address] Dr. Maru Disla RBC 5.59 106/ul Critically high 4.20-5.40 [facility] Comment on above: Performed By: #### B MP #### [facility] [address] [place] [address] Dr. Maru Disla WBC 13.9 103/ul Critically high 4.0-11.0 [facility] Comment on above: Performed By: #### B MP #### [facility] [address] [place] [address] Dr. Maru Disla CULTURE BLOODon 04-05-2022 Microscopic examination of blood, culture Culture Observations: NO GROWTH AT 5 DAYS. Normal [facility] Comment on above: Performed By: #### B MP #### [facility] [address] [place] [address] Dr. Maru Disla [facility]on SARS-CoV-2 (COVID-19) RNA NICOLETTE+probe Ql (Unsp spec) Not detected Normal NOT DETECTED [facility] Comment on above: Result [...] for this test is supported by the Work Car Operator of Health and Human Service's declaration that [...] used). Performed By: #### M ALBR #### [facility] [address] [place] [address] Dr. Maru Disla INFLUENZA A AND B AGon 04-05 INFLUENZA A AG Negative Normal NEGATIVE SEE COMMENT [facility] Comment on above: Performed By: #### P OCGLUC #### [facility] [address] [place] [address] Dr. Maru Disla INFLUENZA B AG Negative Normal NEGATIVE SEE COMMENT [facility] Comment on above: Performed By: #### P OCGLUC #### [facility] [address] [place] [address] Dr. Maru Disla INTERNAL CONTROLS Within Normal Limits Normal Wi thin Normal Limits [facility] Comment on above: Performed By: #### P OCGLUC #### [facility] [address] [place] [address] Dr. Maru Disla LACTATE/LACTIC ACIDon 2021 Lactate [Moles/Vol] 3.1 mmol/L Critically high 0.4-1.9 [facility] Comment on above: Performed By: #### L ACT #### [facility] [address] [place] [address] Dr. Maru Disla Lactate [Moles/Vol] 3.1 mmol/L Critically high 0.4-1.9 [facility] Comment on above: Performed By: #### B MP #### [facility] [address] [place] [address] Dr. Maru Disla POINT OF CARE GLUCOSEon 11-0 Glucose [Mass/Vol] 290 mg/dL Critically high 74-106 [facility] Comment on above: Performed By: #### M ALBR #### [facility] [address] [place] [address] Dr. Maru Disla Glucose [Mass/Vol] 309 mg/dL Critically high 74-106 [facility] Comment on above: Performed By: #### A BG #### [facility] [address] [place] [address] Dr. Maru Disla Glucose [Mass/Vol] 289 mg/dL Critically high 74-106 [facility] Comment on above: Performed By: #### P OCGLUC #### [facility] [address] [place] [address] Dr. Maru Disla Glucose [Mass/Vol] 325 mg/dL Critically high -106 [facility] Comment on above: Performed By: #### M ALBR #### [facility] [address] [place] [address] Dr. Maru Disla PROF 14(COMP METB)on 022 Albumin [Mass/Vol] 3.3 g/dL Critically low 3.4-5.0 [facility] Comment on above: Performed By: #### P OCGLUC #### [facility] [address] [place] [address] Dr. Maru Disla Albumin/Globulin [Mass ratio] 0.7 {ratio} Normal [facility] Comment on above: Performed By: #### P OCGLUC #### [facility] [address] [place] [address] Dr. Maru Disla ALP [Catalytic activity/Vol] 105 U/L Normal 46-116 [facility] Comment on above: Performed By: #### P OCGLUC #### [facility] [address] [address] [address] Maru Disla ALT [Catalytic activity/Vol] 15 U/L Normal 14-59 [facility] Comment on above: Performed By: #### P OCGLUC #### [facility] [address] [address] [address] Maru Disla Anion gap [Moles/Vol] 13.2 mmol/L Normal [facility] Comment on above: Performed By: #### P OCGLUC #### [facility] [address] [address] [address] Maru Disla AST [Catalytic activity/Vol] 12 U/L Critically low 15-37 [facility] Comment on above: Performed By: #### P OCGLUC #### [facility] [address] [address] [address] Maru Disla Bilirubin [Mass/Vol] 0.4 mg/dL Normal 0.2-1.0 [facility] Comment on above: Performed By: #### P OCGLUC #### [facility] [address] [address] [address] Maru Disla Calcium [Mass/Vol] 8.8 mg/dL Normal 8.5-10.1 [facility] Comment on above: Performed By: #### P OCGLUC #### [facility] [address] [address] [address] Maru Disla Chloride [Moles/Vol] 101 mmol/L Normal 98-107 [facility] Comment on above: Performed By: #### P OCGLUC #### [facility] [address] [address] [address] Maru Disla CO2 [Moles/Vol] 26.0 mmol/L Normal 21.0-32.0 [facility] Comment on above: Performed By: #### P OCGLUC #### [facility] [address] [address] [address] Maru Disla Creatinine [Mass/Vol] 1.03 mg/dL Critically high 0.55-1.02 [facility] Comment on above: Performed By: #### P OCGLUC #### [facility] [address] [address] [address] Maru Disla EGFR-AF BRAZILIAN >60 Normal >=60 [facility] Comment on above: Performed By: #### P OCGLUC #### [facility] [address] [address] [address] Maru Disla EGFR-NON AF BRAZILIAN 54 mL/min/1.73m2 Critically low >=60 [facility] Comment on above: Performed By: #### P OCGLUC #### [facility] [address] [address] [address] Maru Disla Globulin (S) [Mass/Vol] 4.5 g/dL Normal [facility] Comment on above: Performed By: #### P OCGLUC #### [facility] [address] [address] [address] Maru Disla Glucose [Mass/Vol] 264 mg/dL Critically high 74-106 [facility] Comment on above: Performed By: #### P OCGLUC #### [facility] [address] [address] [address] Maru Disla Potassium [Moles/Vol] 4.2 mmol/L Normal 3.5-5.1 [facility] Comment on above: Performed By: #### P OCGLUC #### [facility] [address] [address] [address] Maru Disla Protein [Mass/Vol] 7.8 g/dL Normal 6.4-8.2 [facility] Comment on above: Performed By: #### P OCGLUC #### [facility] [address] [address] [address] Maru Disla Sodium [Moles/Vol] 136 mmol/L Normal 136-145 [facility] Comment on above: Performed By: #### P OCGLUC #### [facility] [address] [address] [address] Maru Disla Urea nitrogen [Mass/Vol] 14.0 mg/dL Normal 7.0-18.0 [facility] Comment on above: Performed By: #### P OCGLUC #### [facility] [address] [place] [address] Dr. Maru Disla Urea nitrogen/Creatinine [Mass ratio] 13.6 mg/mg Normal [facility] Comment on above: Performed By: #### P OCGLUC #### [facility] [address] [address] [address] Maru Disla TROPONIN, HIGH SENSITIVITYon 04-05-2022 HSTROP 10.5 pg/mL Normal 4.0-51.3 [facility] Comment on above: Result Comment: CUT- OFF POINTS HAVE BEEN ESTABLISHED BASED ON THE FOURTH UNIVERSAL DEFINITIONS OF MYOCARDIAL INFARCTION. THE UPPER REFERENCE LIMIT (URL) OF TROPONIN, DEFINED THE 99TH PERCENTILE OF cTnI DISTRIBUTION IN A REFERENCE POPULATION, HAS BEEN CONFIRMED THE DECISION THRESHOLD FOR [place] DIAGNOSIS. Performed By: #### A BG #### [facility] [address] [place] [address] Dr. Maru Disla XR CHEST 1 Von [...] by: YECENIA MONTERO Date: 2022-04-05 06:51 Normal [facility] Vital Signs Date Time Vital Sign Value Performing Clinician Facility 12-14-2024 11:31-0400 Body mass index (BMI) [Ratio] 26.95 kg/m2 Maira Rush [employer] Work Phone: [facility] 12-14-2024 11:31-0400 Body temperature 98.1 [degF] Maira Rush [employer] Work Phone: [facility] 12-14-2024 11:31-0400 Body weight 75.75 kg Maira Rush [employer] Work Phone: [facility] 12-14-2024 11:31-0400 Diastolic blood pressure 80 mm[Hg] Maira Aichholz [employer] Work Phone: [facility] 12-14-2024 11:31-0400 Heart rate 93 /min Maira Aichholz [employer] Work Phone: [facility] 12-14-2024 11:31-0400 Respiratory rate 22 /min Maira Aichholz [employer] Work Phone: [facility] 12-14-2024 11:31-0400 SaO2% (BldA) [Mass fraction] 93 % Maira Aichholz [employer] Work Phone: [facility] 12-14-2024 11:31-0400 Systolic blood pressure 122 mm[Hg] Maira Aichholz [employer] Work Phone: [facility] 12-01-2024 13:49-0400 Body mass index (BMI) [Ratio] 27.73 kg/m2 Maira Aichholz [employer] Work Phone: [facility] 12-01-2024 13:49-0400 Body temperature 98.29 [degF] Maira Aichholz [employer] Work Phone: [facility] 12-01-2024 13:49-0400 Body weight 77.93 kg Maira Aichholz [employer] Work Phone: [facility] 12-01-2024 13:49-0400 Diastolic blood pressure 70 mm[Hg] Maira Aichholz [employer]ER Work Phone: [facility] 12-01-2024 13:49-0400 Heart rate 101 /min Maira Aichholz [employer] Work Phone: [facility] 12-01-2024 13:49-0400 Respiratory rate 18 /min Maira Aichholz [employer] Work Phone: [facility] 12-01-2024 13:49-0400 SaO2% (BldA) [Mass fraction] 95 % Maira Aichholz [employer] Work Phone: [facility] 12-01-2024 13:49-0400 Systolic blood pressure 110 mm[Hg] Maira Aichholz [employer]ER Work Phone: [facility] 10-14-2024 14:25-0400 Body mass index (BMI) [Ratio] 30.38 kg/m2 Maira Aichholz [employer] Work Phone: [facility] 10-14-2024 14:25-0400 Body temperature 98.1 [degF] Maira Yoonholz [employer]ER Work Phone: [facility] 10-14-2024 14:25-0400 Body weight 85.37 kg Maira Yoonholz [employer]ER Work Phone: [facility] 10-14-2024 14:25-0400 Diastolic blood pressure 76 mm[Hg] Maira Aichholz [employer]ER Work Phone: [facility] 10-14-2024 14:25-0400 Heart rate 87 /min Maira Yoonholz [employer]ER Work Phone: [facility] 10-14-2024 14:25-0400 Respiratory rate 22 /min Maira Aichholz [employer]ER Work Phone: [facility] 10-14-2024 14:25-0400 SaO2% (BldA) [Mass fraction] 94 % Maira Kenahholz [employer]ER Work Phone: [facility] 10-14-2024 14:25-0400 Systolic blood pressure 108 mm[Hg] Maira Yoonholz [employer]SEM[employer]ER Work Phone: [facility] 08-06-2024 09:29-0500 Body height 167.6 cm Maira Aichholz [employer] Work Phone: [facility] 08-06-2024 09:29-0500 Body mass index (BMI) [Ratio] 33.86 kg/m2 Maira Aichholz [employer] Work Phone: [facility] 08-06-2024 09:29-0500 Body temperature 98.49 [degF] Maira Deutschz [employer]ER Work Phone: [facility] 08-06-2024 09:29-0500 Body weight 95.17 kg Maira Deutschz [employer]ER Work Phone: [facility] 08-06-2024 09:29-0500 Diastolic blood pressure 84 mm[Hg] Maira Fatouz [employer]ER Work Phone: [facility] 08-06-2024 09:29-0500 Heart rate 78 /min Maira Fatouz [employer]ER Work Phone: [facility] 08-06-2024 09:29-0500 Respiratory rate 20 /min Mairatessa Deutschz [employer]ER Work Phone: [facility] 08-06-2024 09:29-0500 SaO2% (BldA) [Mass fraction] 93 % Mairatessa Deutschz [employer]ER Work Phone: [facility] 08-06-2024 09:29-0500 Systolic blood pressure 140 mm[Hg] Maira Deutschz [employer]ER Work Phone: [facility] 06-09-2024 10:59-0500 Body height 167.6 cm Maira Deutschz [employer]ER Work Phone: [facility] 06-09-2024 10:59-0500 Body mass index (BMI) [Ratio] 33.86 kg/m2 Mairatessa Deutschz [employer]ER Work Phone: [facility] 06-09-2024 10:59-0500 Body temperature 97.59 [degF] Mairatessa Deutschz [employer] HAND[employer]ER Work Phone: [facility] 06-09-2024 10:59-0500 Body weight 95.17 kg Mairatessa Deutschz [employer] HAND[employer]SEM[employer]ER Work Phone: [facility] Comment on above: steel toe boots on 06-09-2024 10:59-0500 Diastolic blood pressure 68 mm[Hg] Maira Nettlesvaz [employer]ER Work Phone: [facility] 06-09-2024 10:59-0500 Heart rate 77 /min Maira Aichholz [employer]ER Work Phone: [facility] 06-09-2024 10:59-0500 Respiratory rate 22 /min Maira Aichholz [employer] HAND[employer]SEM[employer]ER Work Phone: [facility] 06-09-2024 10:59-0500 SaO2% (BldA) [Mass fraction] 94 % Maira Aichholz [employer]SEM[employer]ER Work Phone: [facility] 06-09-2024 10:59-0500 Systolic blood pressure 118 mm[Hg] Maira Aichholz [employer] HAND[employer]SEM[employer]ER Work Phone: [facility] 05-28-2024 11:24-0500 Body height 167.6 cm Maira Aichholz [employer]ER Work Phone: [facility] 05-28-2024 11:24-0500 Body mass index (BMI) [Ratio] 32.83 kg/m2 Maira Kenahholz [employer]ER Work Phone: [facility] 05-28-2024 11:24-0500 Body temperature 98.1 [degF] Maira Aichholz [employer] HAND[employer]SEM[employer]ER Work Phone: [facility] 05-28-2024 11:24-0500 Body weight 92.26 kg Maira Kenahholz [employer] HAND[employer]SEM[employer]ER Work Phone: [facility] 05-28-2024 11:24-0500 Diastolic blood pressure 66 mm[Hg] Maira Aichholz [employer] HAND[employer] ASSEMBLER Work Phone: [facility] 05-28-2024 11:24-0500 Heart rate 73 /min Maira Aichholz [employer] HAND[employer] ASSEM[employer]ER Work Phone: [facility] 05-28-2024 11:24-0500 Respiratory rate 22 /min Maira Aichholz [employer] HANDLE ASSEMBLER Work Phone: [facility] 05-28-2024 11:24-0500 SaO2% (BldA) [Mass fraction] 92 % Maira Aichholz [employer] HANDLE ASSEMBLER Work Phone: [facility] 05-28-2024 11:24-0500 Systolic blood pressure 110 mm[Hg] Maira Deutschz [employer] HANDLE ASSEMBLER Work Phone: [facility] 05-19-2024 14:16-0500 Body height 167.6 cm Mairatessa Deutschz [employer] HAND[employer]SEMBLER Work Phone: [facility] 05-19-2024 14:16-0500 Body mass index (BMI) [Ratio] 33.77 kg/m2 Maira Yoonholz [employer] HAND[employer]SEM[employer]ER Work Phone: [facility] 05-19-2024 14:16-0500 Body temperature 98.71 [degF] Maira Deutschz [employer] HAND[employer] ASSEM[employer]ER Work Phone: [facility] 05-19-2024 14:16-0500 Body weight 94.89 kg Mairatessa Deutschz [employer] HANDLE ASSEMBLER Work Phone: [facility] 05-19-2024 14:16-0500 Diastolic blood pressure 66 mm[Hg] Maira Yoonholz [employer] HAND[employer] ASSEMBLER Work Phone: [facility] 05-19-2024 14:16-0500 Heart rate 71 /min Maira Fatouz [employer] HAND[employer]SEM[employer]ER Work Phone: [facility] 05-19-2024 14:16-0500 Respiratory rate 18 /min Maira Yoonholz [employer] HANDLE ASSEM[employer]ER Work Phone: [facility] 05-19-2024 14:16-0500 SaO2% (BldA) [Mass fraction] 93 % Mairatessa Deutschz [employer] HANDLE ASSEMBLER Work Phone: [facility] 05-19-2024 14:16-0500 Systolic blood pressure 120 mm[Hg] Maira Yoonholz [employer] HAND[employer] ASSEMBLER Work Phone: [facility] 05-06-2024 13:32-0500 Body height 167.6 cm Maira Yoonholz [employer] HAND[employer]SEM[employer]ER Work Phone: [facility] 05-06-2024 13:32-0500 Body mass index (BMI) [Ratio] 33.77 kg/m2 Maira Fatouz [employer]SEM[employer]ER Work Phone: [facility] 05-06-2024 13:32-0500 Body temperature 97.81 [degF] Maira Aichholz [employer] HANDLE ASSEMBLER Work Phone: [facility] 05-06-2024 13:32-0500 Body weight 94.89 kg Maira Aichholz [employer] HAND[employer] ASSEM[employer]ER Work Phone: [facility] 05-06-2024 13:32-0500 Diastolic blood pressure 76 mm[Hg] Maira Aichholz [employer] HAND[employer] ASSEMBLER Work Phone: [facility] 05-06-2024 13:32-0500 Heart rate 73 /min Maira Aichholz [employer] HAND[employer] ASSEM[employer]ER Work Phone: [facility] 05-06-2024 13:32-0500 SaO2% (BldA) [Mass fraction] 97 % Maira Aichholz [employer] HAND[employer] ASSEMBLER Work Phone: [facility] 05-06-2024 13:32-0500 Systolic blood pressure 138 mm[Hg] Maira Aichholz [employer] HAND[employer] ASSEMBLER Work Phone: [facility] 04-22-2024 09:23-0500 Body height 167.6 cm Maira Aichholz [employer] HAND[employer]ER Work Phone: [facility] 04-22-2024 09:23-0500 Body mass index (BMI) [Ratio] 32.44 kg/m2 Maira Aichholz [employer]ER Work Phone: [facility] 04-22-2024 09:23-0500 Body temperature 98.1 [degF] Maira Aichholz [employer] HAND[employer]SEMBLER Work Phone: [facility] 04-22-2024 09:23-0500 Body weight 91.17 kg Maira Aichholz [employer] HAND[employer]SEM[employer]ER Work Phone: [facility] 04-22-2024 09:23-0500 Diastolic blood pressure 78 mm[Hg] Maira Aichholz [employer] HAND[employer]SEM[employer]ER Work Phone: [facility] 04-22-2024 09:23-0500 Heart rate 68 /min Maira Nettlesdominic [employer]SEM[employer]ER Work Phone: [facility] 04-22-2024 09:23-0500 Respiratory rate 20 /min Maira Rush [employer]ER Work Phone: [facility] 04-22-2024 09:23-0500 SaO2% (BldA) [Mass fraction] 95 % Maira Nettlesdomiinc [employer] HANDLE ASSEMBLER Work Phone: [facility] 04-22-2024 09:23-0500 Systolic blood pressure 122 mm[Hg] Maira Nettlesdominic [employer] HAND[employer]SEMBLER Work Phone: [facility] 04-21-2024 14:21-0500 Body height 167.6 cm Felton Allison MD Work Phone: [facility] 04-21-2024 14:21-0500 Body mass index (BMI) [Ratio] 33.09 kg/m2 Felton Allison MD Work Phone: [facility] 04-21-2024 14:21-0500 Body weight 92.99 kg Felton Allison MD Work Phone: [facility] 04-21-2024 14:21-0500 Diastolic blood pressure 72 mm[Hg] Felton Allison MD Work Phone: [facility] 04-21-2024 14:21-0500 Heart rate 77 /min Felton Allison MD Work Phone: [facility] 04-21-2024 14:21-0500 Respiratory rate 18 /min Felton Allison MD Work Phone: [facility] 04-21-2024 14:21-0500 Systolic blood pressure 112 mm[Hg] Felton Allison MD Work Phone: [facility] 03-11-2024 10:25-0400 Body height 167.6 cm Maira Escuderodaryn [employer]SEMBLER Work Phone: [facility] 03-11-2024 10:25-0400 Body mass index (BMI) [Ratio] 33.28 kg/m2 Maira Yoonholz [employer]ER Work Phone: [facility] 03-11-2024 10:25-0400 Body temperature 98.1 [degF] Maira Kenahholz [employer]ER Work Phone: [facility] 03-11-2024 10:25-0400 Body weight 93.53 kg Maira Kenahholz [employer] HAND[employer]ER Work Phone: [facility] 03-11-2024 10:25-0400 Diastolic blood pressure 80 mm[Hg] Maira Kenahholz [employer]ER Work Phone: [facility] 03-11-2024 10:25-0400 Heart rate 71 /min Maira Kenahholz [employer]ER Work Phone: [facility] 03-11-2024 10:25-0400 Respiratory rate 18 /min Maira Kenahholz [employer]ER Work Phone: [facility] 03-11-2024 10:25-0400 SaO2% (BldA) [Mass fraction] 96 % Maira Kenahholz [employer] HAND[employer]ER Work Phone: [facility] 03-11-2024 10:25-0400 Systolic blood pressure 122 mm[Hg] Maira Kenahholz [employer] HAND[employer]SEMBLER Work Phone: [facility] 02-25-2024 10:56-0400 Body height 167.6 cm Maira Kenahholz [employer] HAND[employer]ER Work Phone: [facility] 02-25-2024 10:56-0400 Body mass index (BMI) [Ratio] 33.51 kg/m2 Maira Aichholz [employer]ER Work Phone: [facility] 02-25-2024 10:56-0400 Body temperature 98.1 [degF] Maira Kenahholz [employer] HAND[employer]ER Work Phone: [facility] 02-25-2024 10:56-0400 Body weight 94.17 kg Maira Kenahholz [employer]ER Work Phone: [facility] 02-25-2024 10:56-0400 Diastolic blood pressure 76 mm[Hg] Maira Aichholz [employer]ER Work Phone: [facility] 02-25-2024 10:56-0400 Heart rate 77 /min Maira Aichholz [employer]ER Work Phone: [facility] 02-25-2024 10:56-0400 Respiratory rate 19 /min Maira Aichholz [employer]ER Work Phone: [facility] 02-25-2024 10:56-0400 SaO2% (BldA) [Mass fraction] 97 % Maira Aichholz [employer]ER Work Phone: [facility] 02-25-2024 10:56-0400 Systolic blood pressure 122 mm[Hg] Maira Aichholz [employer] HAND[employer] ASSEMBLER Work Phone: [facility] 02-17-2024 11:07-0400 Body height 167.6 cm Maira Aichholz [employer] HAND[employer] ASSEM[employer]ER Work Phone: [facility] 02-17-2024 11:07-0400 Body mass index (BMI) [Ratio] 34.19 kg/m2 Maira Aichholz [employer]ER Work Phone: [facility] 02-17-2024 11:07-0400 Body temperature 98.49 [degF] Maira Aichholz [employer] HAND[employer]SEM[employer]ER Work Phone: [facility] 02-17-2024 11:07-0400 Body weight 96.07 kg Maira Aichholz [employer]ER Work Phone: [facility] 02-17-2024 11:07-0400 Diastolic blood pressure 82 mm[Hg] Maira Aichholz [employer]ER Work Phone: [facility] 02-17-2024 11:07-0400 Heart rate 78 /min Maira Aichholz [employer]ER Work Phone: [facility] 02-17-2024 11:07-0400 Respiratory rate 19 /min Maira Aichholz [employer]ER Work Phone: [facility] 02-17-2024 11:07-0400 SaO2% (BldA) [Mass fraction] 98 % Maira Victor Manuel [employer]SEM[employer]ER Work Phone: [facility] 02-17-2024 11:07-0400 Systolic blood pressure 118 mm[Hg] Maira aFtouz [employer] HAND[employer]SEMBLER Work Phone: [facility] 07-18-2023 14:27-0500 Body height 167.6 cm Maira Fatouz [employer] HAND[employer]ER Work Phone: [facility] 07-18-2023 14:27-0500 Body mass index (BMI) [Ratio] 38.29 kg/m2 Maira Fatouz [employer]ER Work Phone: [facility] 07-18-2023 14:27-0500 Body temperature 98.01 [degF] Maira Victor Manuel [employer]ER Work Phone: [facility] 07-18-2023 14:27-0500 Body weight 107.59 kg Maira Victor Manuel [employer]ER Work Phone: [facility] 07-18-2023 14:27-0500 Diastolic blood pressure 78 mm[Hg] Maira Victor Manuel [employer]ER Work Phone: [facility] 07-18-2023 14:27-0500 Heart rate 79 /min Maira Victor Manuel [employer] Work Phone: [facility] 07-18-2023 14:27-0500 Respiratory rate 19 /min Maira Fatouz [employer]ER Work Phone: [facility] 07-18-2023 14:27-0500 SaO2% (BldA) [Mass fraction] 97 % Maira Victor Manuel [employer]ER Work Phone: [facility] 07-18-2023 14:27-0500 Systolic blood pressure 142 mm[Hg] Maira Victor Manuel MOP HANDLE ASSEMBLER Work Phone: [facility] Encounters Encounter Date Encounter Type Care Provider Facility Start: 01-15-2025 End: 01-15-2025 Emergency department patient [facility] Start: 01-14-2025 End: 01-16-2025 Refill Maira Victor Manuel MOP HANDLE ASSEMBLER Work Phone: [facility] Comment on above: Vitamin D deficiency (Primary Dx); Primary hypertension ; Edema of extremities; COPD mixed type ([facility]); Type 2 diabetes mellitus with diabetic neuropathy, with long-term current use of insulin ([facility]) Start: 01-08-2025 End: 01-08-2025 Bamboo flowsheet Bob Medina RN [facility] Patient Education Start: 01-08-2025 End: 01-08-2025 Bamboo flowsheet Bob Medina RN [facility] Patient Education Start: 01-08-2025 End: 01-08-2025 ambulatory BOB MEDINA Not Available Start: 12-14-2024 End: 12-14-2024 Bamboo flowsheet Maira Victor Manuel MOP HANDLE ASSEMBLER Work Phone: [facility] Start: 12-14-2024 End: 12-14-2024 Bamboo flowsheet Maira Victor Manuel MOP HANDLE ASSEMBLER Work Phone: [facility] Start: 12-14-2024 End: 12-14-2024 Office outpatient visit 25 minutes Maira Rush MOP HANDLE ASSEMBLER Work Phone: [facility] Comment on above: Type 2 diabetes gayatri itus without complication, with long-term current use of insulin ([facility]) (Primary Dx); Gill rash of groin; Cigarette nicotine dependence without complication; Urge and stress incontinence; Primary hypertension ; Paroxysmal atrial fibrillation ([facility]); Medical non-compliance Start: 12-14-2024 End: 12-14-2024 Refill Maira Victor Manuel MOP HANDLE ASSEMBLER Work Phone: [facility] Comment on above: 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 Start: 12-01-2024 End: 12-01-2024 Bamboo flowsheet Maira Victor Manuel MOP HANDLE ASSEMBLER Work Phone: [facility] Start: 12-01-2024 End: 12-01-2024 Bamboo flowsheet Maira Aichholz MOP HANDLE ASSEMBLER Work Phone: [facility] Start: 12-01-2024 End: 12-01-2024 ambulatory MAIRA AICHHOLZ Not Available Start: 12-01-2024 End: 12-01-2024 Office outpatient visit 25 minutes Maira Aichholz MOP HANDLE ASSEMBLER Work Phone: [facility] Comment on above: Gill infection of genital region (Primary Dx); Type 2 diabetes mellitus without complication, with long-term current use of insulin ([facility]); Gill rash of groin; Abscess of left groin Start: 11-25-2024 End: 11-25-2024 Orders Only Maira Aichholz MOP HANDLE ASSEMBLER Work Phone: [facility] Comment on above: Primary hypertension (Primary Dx) Start: 11-17-2024 End: 11-18-2024 Refill Maira Aichholz MOP HANDLE ASSEMBLER Work Phone: [facility] Comment on above: COPD mixed type ([facility] ) Start: 10-16-2024 End: 10-16-2024 Orders Only Maira Aichholz MOP HANDLE ASSEMBLER Work Phone: [facility] Comment on above: Type 2 diabetes gayatri itus without complication, with long-term current use of insulin (Primary Dx); Obesity (BMI 30-39.9); Abscess of left groin Start: 10-14-2024 End: 10-14-2024 ambulatory MAIRA AICHHOLZ Not Available Start: 10-14-2024 End: 10-14-2024 Office outpatient visit 25 minutes Maira Aichholz MOP HANDLE ASSEMBLER Work Phone: [facility] Comment on above: Abscess of left groi n (Primary Dx); Primary hypertension (CMS/[facility]); Type 2 diabetes mellitus without complication, with long-term current use of insulin; Cigarette nicotine dependence without complication; Encounter for screening mammogram for malignant neoplasm of breast; Gill rash of groin; Mild episode of recurrent major depressive disorder (HCC) (CMS/HCC) Start: 10-14-2024 End: 10-14-2024 Bamboo flowsheet Maira Aichholz MOP HANDLE ASSEMBLER Work Phone: [facility] Start: 10-14-2024 End: 10-14-2024 Bamboo flowsheet Maira Rush MOP HANDLE ASSEMBLER Work Phone: [facility] Start: 10-06-2024 [...] Start: 09-21-2024 End: 09-21-2024 Refill Mairatessa Rush MOP HANDLE ASSEMBLER Work Phone: [facility] Comment on above: JORDAN (generalized anx iety disorder) (CMS/HCC); Mild episode of recurrent major depressive disorder (HCC) (CMS/HCC) Start: 09-18-2024 End: 09-20-2024 Refill Maira Rush MOP HANDLE ASSEMBLER Work Phone: [facility] Comment on [...] 08-06-2024 End: 08-06-2024 Bamboo flowsheet Maira Rush MOP HANDLE ASSEMBLER Work Phone: [facility] Start: 08-06-2024 End: 08-06-2024 Bamboo flowsheet Maira Rush MOP HANDLE ASSEMBLER Work Phone: [facility] Start: 08-06-2024 End: 08-06-2024 Office outpatient visit 25 minutes Maira Rush MOP HANDLE ASSEMBLER Work Phone: [facility] Comment on above: JORDAN (generalized anx iety disorder) ([facility]/HCC) (Primary Dx); SANTO (obstructive sleep apnea); Type 2 diabetes mellitus with diabetic polyneuropathy, with long-term current use of insulin ([facility]); COPD mixed type ([facility]); Oxygen dependent; Paroxysmal atrial fibrillation ([facility]); Primary hypertension ([facility]); Gastroesophageal reflux disease, unspecified whether esophagitis present; Obesity (BMI 30-39.9); Type 2 diabetes mellitus without complication, with long-term current use of insulin ([facility]); Anxiety and depression ([facility]/HCC); 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 ([facility]); Medical non-compliance; Mild episode of recurrent major depressive disorder (HCC) ([facility]); Cigarette nicotine dependence without complication; Encounter for screening mammogram for malignant neoplasm of breast; Diabetic polyneuropathy associated with type 2 diabetes mellitus ([facility]); Mixed hyperlipidemia ([facility]); Edema of extremities Start: 08-06-2024 End: 08-06-2024 ambulatory MAIRA VICTOR MANUEL Not Available Start: 07-20-2024 End: 07-20-2024 Refill Mairatessa Rush MOP HANDLE ASSEMBLER Work Phone: [facility] Comment on above: Type 2 diabetes gayatri itus with diabetic neuropathy, with long- term current use of insulin ([facility]) Start: 07-16-2024 End: 07-16-2024 Refill Mairatessa Rush MOP HANDLE ASSEMBLER Work Phone: [facility] Comment on above: Diarrhea, unspecifie d type (Primary Dx) Start: 07-14-2024 End: 07-16-2024 External Result Encounter Maira Rush MOP HANDLE ASSEMBLER Work Phone: [facility] Unsolicited Start: 07-14-2024 End: 07-16-2024 External Result Encounter Maira Aichholz MOP HANDLE ASSEMBLER Work Phone: [facility] Unsolicited Start: 07-14-2024 End: 07-14-2024 Orders Only Maira Aichholz MOP HANDLE ASSEMBLER Work Phone: [facility] Comment on above: Diarrhea, unspecifie d type (Primary Dx) Start: 07-08-2024 End: 07-08-2024 Clinisync Result Encounter Maira Aichholz MOP HANDLE ASSEMBLER Work Phone: [facility] Unsolicited Start: 07-08-2024 End: 07-08-2024 Clinisync Result Encounter Maira Aichholz MOP HANDLE ASSEMBLER Work Phone: [facility] Unsolicited Start: 07-06-2024 End: 07-06-2024 ambulatory [facility] Start: 07-01-2024 End: 07-01-2024 Refill Maira Aichholz MOP HANDLE ASSEMBLER Work Phone: [facility] Comment on above: Type 2 diabetes gayatri itus without complication, with long-term current use of insulin (CMS/HCC) (Primary Dx) Start: 06-11-2024 End: 06-11-2024 Orders Only Maira Aichholz MOP HANDLE ASSEMBLER Work Phone: [facility] Comment on above: 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 (CMS/HCC) (Primary Dx) Start: 06-09-2024 End: 06-09-2024 Bamboo flowsheet Maira Aichholz MOP HANDLE ASSEMBLER Work Phone: [facility] Start: 06-09-2024 End: 06-09-2024 Bamboo flowsheet Maira Aichholz MOP HANDLE ASSEMBLER Work Phone: [facility] Start: 06-09-2024 End: 06-09-2024 Office outpatient visit 25 minutes Maira Aichholz MOP HANDLE ASSEMBLER Work Phone: [facility] Comment on above: COVID (Primary Dx); Type 2 diabetes mellitus with diabetic polyneuropathy ([facility]/HCC); Type 2 diabetes mellitus with hyperglycemia ([facility]/HCC); 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 classified elsewhere ([facility]/HCC); 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 ([facility]/HCC); COPD mixed type ([facility]/HCC); Paroxysmal atrial fibrillation ([facility]/HCC); Primary hypertension ([facility]/HCC); Tobacco user Start: 06-09-2024 End: 06-09-2024 ambulatory MAIRATessa RUSH Not Available Start: 05-28-2024 End: 05-28-2024 Refill Maira Rush MOP HANDLE ASSEMBLER Work Phone: [facility] Comment on above: COPD mixed type (CMS /HCC) Start: 05-28-2024 End: 05-28-2024 Office outpatient visit 25 minutes Maira Rush MOP HANDLE ASSEMBLER Work Phone: [facility] Comment on above: Oxygen dependent (Pr imary Dx); COPD mixed type (CMS/HCC); Obesity (BMI 30-39.9); COPD with acute exacerbation ([facility]/HCC) Start: 05-28-2024 End: 05-28-2024 Orders Only Maira Rush MOP HANDLE ASSEMBLER Work Phone: [facility] Comment on above: Lung nodule, multipl e (Primary Dx); COPD mixed type (CMS/HCC) 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 ([facility]/HCC) (Primary Dx) Start: 05-25-2024 End: 05-25-2024 Clinisync Result Encounter Generic External Data Provider [facility] Unsolicited Start: 05-25-2024 End: 05-25-2024 Clinisync Result Encounter Generic External Data Provider [facility] Unsolicited Start: 05-19-2024 End: 05-19-2024 Bamboo flowsheet Maira Rush MOP HANDLE ASSEMBLER Work Phone: [facility] Start: 05-19-2024 End: 05-19-2024 Bamboo flowsheet Maira Rush MOP HANDLE ASSEMBLER Work Phone: [facility] Start: 05-19-2024 End: 05-19-2024 Office outpatient visit 15 minutes Maira Rush MOP HANDLE ASSEMBLER Work Phone: [facility] Comment on above: Right wrist pain (Pr imary Dx); Obesity (BMI 30-39.9) Start: 05-19-2024 End: 05-19-2024 ambulatory MAIRA YOONHOLZ Not Available Start: 05-18-2024 End: 05-18-2024 Orders Only Maira Rush MOP HANDLE ASSEMBLER Work Phone: [facility] Comment on above: Lung nodule, multipl e (Primary Dx) Start: 05-06-2024 End: 05-06-2024 Bamboo flowsheet Maira Rush MOP HANDLE ASSEMBLER Work Phone: [facility] Start: 05-06-2024 End: 05-06-2024 Bamboo flowsheet Maira Rush MOP HANDLE ASSEMBLER Work Phone: [facility] Start: 05-06-2024 End: 05-06-2024 Office outpatient visit 25 minutes Maira Rush MOP HANDLE ASSEMBLER Work Phone: [facility] Comment on above: COPD mixed [...] End: 04-22-2024 Patient encounter status Maira Rush MOP HANDLE ASSEMBLER Work Phone: [facility] Start: 04-22-2024 End: 04-22-2024 Periodic preventive med est patient 40-64yrs Maira Rush MOP HANDLE ASSEMBLER Work Phone: [facility] Comment on above: Encounter for wellne ss examination (Primary Dx); Osteoporosis, unspecified osteoporosis type, unspecified pathological fracture presence ([facility]); Open wound of buttock, unspecified laterality, initial encounter; Type 2 diabetes mellitus without complication, with long-term current use of insulin ([facility]); Obesity (BMI 30-39.9); Tobacco user; Anxiety and depression ([facility]); Type 2 diabetes mellitus with diabetic neuropathy, with long-term current use of insulin ([facility]); COPD mixed type ([facility]); Diabetic polyneuropathy associated with type 2 diabetes mellitus ([facility]); Gastroesophageal reflux disease, unspecified whether esophagitis present; Mixed hyperlipidemia ([facility]); Primary hypertension ([facility]); Edema of extremities; Lung nodule, multiple; Lymphadenopathy, generalized; Vitamin D deficiency; Oxygen dependent; Community acquired pneumonia, unspecified laterality Start: 04-22-2024 End: 04-22-2024 ambulatory MAIRA RUSH Not Available Start: 04-21-2024 End: 04-21-2024 Office outpatient visit 25 minutes Felton Allison MD Work Phone: [facility] Comment on above: Type 2 diabetes gayatri itus with hyperglycemia, with long-term current use of insulin ([facility]) (Primary Dx); Encounter for dietary consultation; Vitamin D deficiency; Primary hypertension ([facility]); Hyperlipemia, mixed ([facility]); Insulin long-term use ([facility]); Class 1 obesity due to excess calories without serious comorbidity with body mass index (BMI) of 33.0 to 33.9 in adult Start: 04-21-2024 End: 04-21-2024 ambulatory FELTON ALLISON Not Available Start: 04-09-2024 End: 04-09-2024 Clinisync Result Encounter Maira Rush MOP HANDLE ASSEMBLER Work Phone: [facility] Unsolicited Start: 04-09-2024 End: 04-09-2024 Clinisync Result Encounter Maira Rush MOP HANDLE ASSEMBLER Work Phone: [facility] Unsolicited Start: 04-09-2024 End: 04-09-2024 Telephone encounter Maira Rush NP Work Phone: [facility] Start: 03-20-2024 End: 03-20-2024 ambulatory MAIRA Kel DEUTSCHZ [facility] Start: 03-18-2024 End: 03-18-2024 Refill Maira Aichholz MOP HANDLE ASSEMBLER Work Phone: [facility] Comment on above: COPD mixed type (CMS /HCC) (Primary Dx); URI, acute COPD mixed type (CMS /HCC); URI, acute Start: 03-16-2024 End: 03-16-2024 Refill Maira Aichholz MOP HANDLE ASSEMBLER Work Phone: [facility] Comment on above: Primary hypertension (CMS/HCC) (Primary Dx); Edema of extremities Start: 03-11-2024 End: 03-11-2024 Bamboo flowsheet Maira Aichholz MOP HANDLE ASSEMBLER Work Phone: [facility] Start: 03-11-2024 End: 03-11-2024 Bamboo flowsheet Maira Aichholz MOP HANDLE ASSEMBLER Work Phone: [facility] Start: 03-11-2024 End: 03-11-2024 Office outpatient visit 25 minutes Maira Aichholz MOP HANDLE ASSEMBLER Work Phone: [facility] Comment on above: Viral upper respirat ory tract infection (Primary Dx); Tobacco user; Open wound; Obesity (BMI 30-39.9); Type 2 diabetes mellitus without complication, with long-term current use of insulin (CMS/HCC) Start: 03-11-2024 End: 03-11-2024 ambulatory MAIRA AICHHOLZ Not Available Start: 02-25-2024 End: 02-25-2024 Bamboo flowsheet Maira Aichholz MOP HANDLE ASSEMBLER Work Phone: [facility] Start: 02-25-2024 End: 02-25-2024 Bamboo flowsheet Maira Aichholz MOP HANDLE ASSEMBLER Work Phone: [facility] Start: 02-25-2024 End: 02-25-2024 Office outpatient visit 25 minutes Maira Aichholz MOP HANDLE ASSEMBLER Work Phone: [facility] Comment on above: Open wound of buttoc k, unspecified laterality, initial encounter (Primary Dx); Type 2 diabetes mellitus without complication, with long-term current use of insulin ([facility]); Obesity (BMI 30-39.9); Dizziness and giddiness Start: 02-25-2024 End: 02-25-2024 ambulatory MAIRA AICHHOLZ Not Available Start: 02-24-2024 End: 02-26-2024 Clinisync Result Encounter Generic External Data Provider [facility] Unsolicited Start: 02-24-2024 End: 02-26-2024 Clinisync Result Encounter Generic External Data Provider [facility] Unsolicited Start: 02-17-2024 End: 02-17-2024 Bamboo flowsheet Maira Rush MOP HANDLE ASSEMBLER Work Phone: [facility] Start: 02-17-2024 End: 02-17-2024 Bamboo flowsheet Mairatessa Rush MOP HANDLE ASSEMBLER Work Phone: [facility] Start: 02-17-2024 End: 02-17-2024 Office outpatient visit 25 minutes Maira Rush MOP HANDLE ASSEMBLER Work Phone: [facility] Comment on above: Type 2 diabetes gayatri itus with hyperglycemia (CMS/HCC) (Primary Dx); Primary hypertension (CMS/HCC); Edema of extremities; Type 2 diabetes mellitus without complication, with long-term current use of insulin ([facility]); Vitamin D deficiency; Tobacco user; Dizziness and giddiness; Atrial fibrillation, unspecified type (CMS/HCC); COPD mixed type (CMS/HCC) Start: 02-17-2024 End: 02-17-2024 ambulatory MAIRA AICHHOLZ Not Available Start: 01-23-2024 End: 01-23-2024 ambulatory [facility] Start: 07-18-2023 End: 07-18-2023 Office outpatient visit 25 minutes Mairatessa Rush MOP HANDLE ASSEMBLER Work Phone: [facility] Comment on above: Primary hypertension (CMS/HCC) (Primary Dx); Type 2 diabetes mellitus with diabetic neuropathy, with long-term current use of insulin ([facility]); Gastroesophageal reflux disease, unspecified whether esophagitis present; Vitamin D deficiency; Type 2 diabetes mellitus with complication, without long-term current use of insulin ([facility]); Mixed hyperlipidemia ([facility]); Encounter for screening mammogram for malignant neoplasm of breast; SANTO (obstructive sleep apnea); COPD mixed type ([facility]); Anxiety and depression ([facility]); COVID; Open wound; Morbid obesity with body mass index (BMI) of 40.0 to 49.9 ([facility]) Start: 07-18-2023 Bamboo flowsheet Maira Rush MOP HANDLE ASSEMBLER Work Phone: [facility] Start: 07-18-2023 Bamboo flowsheet Maira Rush MOP HANDLE ASSEMBLER Work Phone: [facility] Start: 10-02-2022 End: 10-03-2022 ambulatory DMITRY RUSH Facility:[facility] Start: 08-09-2022 End: 08-10-2022 ambulatory DMITRY RUSH Facility:[facility] Start: 07-12-2022 ambulatory [facility] Start: 06-21-2022 End: 06-22-2022 [...] Start: 12-14-2024 Hemoglobin glycosylated a1c Maira Rush MOP HANDLE ASSEMBLER Work Phone: Start: 10-04-2024 AEROBIC CULTURE Generic External Data Provider Start: 07-14-2024 GASTROINTESTINAL PLU S PARASITES (HTRX) Maira Rush MOP HANDLE ASSEMBLER Work Phone: Start: 07-08-2024 CT ABDOMEN WO/W CON Keisha Rush MOP HANDLE ASSEMBLER Work Phone: Start: 05-25-2024 ALL RENAL FUNCTION PANEL Generic External Data Provider Start: 04-21-2024 Gluc bld gluc mntr d ev cleared fda spec home use Felton Allison MD Work Phone: Start: 04-09-2024 TBH UA (CLEAN/CATCH) MICROSCOPIC IF INDICATE Maira Rush MOP HANDLE ASSEMBLER Work Phone: Start: 02-24-2024 Bacteria identified in Urine by Culture Generic External Data Provider Start: 08-05-2023 Mammography Maira santiago MOP HANDLE ASSEMBLER Work Phone: Start: 06-19-2022 Mammography Maira santiago MOP HANDLE ASSEMBLER Work Phone: Start: 02-14-2015 Colonoscopy Maira santiago MOP HANDLE ASSEMBLER Work Phone: Plan of Treatment Date Care Activity Detail Author Start: 05-25-2025 Urine screening for protein Diabetes: Urine Protein Screening [facility] Start: 03-16-2025 Hemoglobin A1c measurement Diabetes: Hemoglobin A1C [facility] Start: 02-14-2025 Screening for malignant neoplasm of colon [facility] Start: 02-11-2025 End: 02-11-2025 Clinical Support 02/11/2025 11:30 AM EDT Clinical Support [facility] Patient Education [address] [place] [id number] Bob Medina, BARI [facility] Patient Education Start: 01-14-2025 End: 01-14-2025 Patient encounter procedure 01/14/2025 11:00 AM EDT Office Visit [facility] [address] [place] [phone] Maira Rush NP [address] [place] [id number] [facility] Start: 12-14-2024 End: 12-14-2025 Comprehensive metabolic 2000 panel - Serum or Plasma Comprehensive metabolic panel Lab Routine Type 2 diabetes mellitus without complication, with long-term current use of insulin (HCC) Expected: 12/14/2024 (Approximate), Expires: 12/14/2025 [facility] Work Phone: Comment on above: Expected: 12/14/2024 (Approximate), Expi res: 12/14/2025 Start: 12-14-2024 End: 12-14-2025 Lipid 1996 panel - Serum or Plasma Lipid panel Lab Routine Type 2 diabetes mellitus without complication, with long-term current use of insulin (HCC) Expected: 12/14/2024 (Approximate), Expires: 12/14/2025 [facility] Comment on above: Expected: 12/14/2024 (Approximate), Expi res: 12/14/2025 Start: 12-14-2024 End: 12-14-[address] [facility] Comment on above: Type 2 diabetes mellitus without complic ation, with long-term current use of insulin (HCC) (Primary Dx); Gill rash of groin; Cigarette nicotine dependence without complication; Urge and stress incontinence Start: 11-26-2024 End: 05-28-2025 CT Chest W contrast IV CT chest w IV contrast Imaging Routine Lung nodule, multiple Expected: 11/26/2024 (Approximate), Expires: 05/28/2025 [facility] [employer] Work Phone: Comment on above: Expected: 11/26/2024 (Approximate), Expi res: 05/28/2025 Start: 11-25-2024 End: 11-25-2025 Basic metabolic 1998 panel - Serum or Plasma Basic metabolic panel Lab Routine Primary hypertension Expected: 11/25/2024 (Approximate), Expires: 11/25/2025 [facility] Work Phone: Comment on above: Expected: 11/25/2024 (Approximate), Expi res: 11/25/2025 Start: 11-09-2024 End: 11-09-2024 Patient encounter procedure 11/09/2024 9:40 AM EDT Office [address] [facility] [address] [place] [phone] Maira Rush, MOP HANDLE ASSEMBLER [address] [place] [phone] [facility] Start: 10-14-2024 End: 10-14-2024 Patient encounter procedure 10/14/2024 2:20 PM EDT Office Visit [facility] [address] [place] [address] Maira Rush, ARLEN [address] [place] [phone] [facility] Start: 10-14-2024 End: 12-14-2025 MG Breast - bilateral Screening Bilateral screening mammogram Imaging Routine Encounter for screening mammogram for malignant neoplasm of breast Expected: 10/14/2024 (Approximate), Expires: 12/14/2025 [facility] Work Phone: Comment on above: Expected: 10/14/2024 (Approximate), Expi res: 12/14/2025 Start: 09-02-2024 End: 09-02-2024 Patient encounter procedure 09/02/2024 11:10 AM EDT Office Visit [facility] [address] [place] [phone] Felton Allison MD [address] [place] [address] [facility] Start: 08-06-2024 End: 10-06-2025 MG Breast - bilateral Screening Bilateral screening mammogram Imaging Routine Encounter for screening mammogram for malignant neoplasm of breast Expected: 08/06/2024 (Approximate), Expires: 10/06/2025 [facility] Work Phone: Comment on above: Expected: 08/06/2024 (Approximate), Expi res: 10/06/2025 Start: 08-06-2024 End: 08-06-[address] [facility] Comment on above: SANTO (obstructive sleep apnea) (Primary D x); Type 2 diabetes mellitus with diabetic polyneuropathy, with long-term current use of insulin ([facility]/HCC); COPD mixed type ([facility]/HCC); Oxygen dependent; Paroxysmal atrial fibrillation ([facility]/HCC); Primary hypertension ([facility]); Gastroesophageal reflux disease, unspecified whether esophagitis present; Obesity (BMI 30-39.9); Type 2 diabetes mellitus without complication, with long-term current use of insulin ([facility]/HCC); Anxiety and depression ([facility]); halfway (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 ([facility]); Medical non-compliance; JORDAN (generalized anxiety disorder) ([facility]); Mild episode of recurrent major depressive disorder (HCC) ([facility]); Cigarette nicotine dependence without complication; Encounter for screening mammogram for malignant neoplasm of breast Start: 08-04-2024 Screening for malignant neoplasm of breast Mammogram [facility] Start: 08-04-2024 Urine screening for protein Diabetes: Urine Protein Screening [facility] Start: 07-23-2024 Hemoglobin A1c measurement Diabetes: Hemoglobin A1C [facility] Start: 07-22-2024 Hemoglobin A1c measurement Diabetes: Hemoglobin A1C [facility] Start: 07-21-2024 End: 07-21-2024 Patient encounter procedure 07/21/2024 2:20 PM EST Office Visit [facility] [address] [place] [address] Felton Allison MD [address] [place] [address] [facility] Start: 07-21-2024 End: 07-21-2024 Patient encounter procedure 07/21/2024 10:40 AM EST Office Visit [facility] [address] [place] [address] Felton Allison MD [address] [place] [address] [facility] Start: 07-14-2024 End: 07-14-2025 GASTROINTESTINAL PLUS PARASITES (HTRX) GASTROINTESTINAL PLUS PARASITES (HTRX) Lab Routine Diarrhea, unspecified type Expected: 07/14/2024 (Approximate), Expires: 07/14/2025 [facility] Work Phone: Comment on above: Expected: 07/14/2024 (Approximate), Expi res: 07/14/2025 Start: 07-09-2024 Hemoglobin A1c measurement Diabetes: Hemoglobin A1C [facility] Start: 06-11-2024 End: 06-11-2025 CT Abdomen WO and W contrast IV CT abdomen w and wo IV contrast Imaging Routine 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 (CMS/HCC) Expected: 06/11/2024, Expires: 06/11/2025 [facility] Work Phone: Comment on above: Expected: 06/11/2024, Expires: Start: 06-09-2024 End: 06-09-2024 Patient encounter procedure 06/09/2024 11:00 AM EST Office Visit [facility] [address] [place] [phone] Maira Rush, ARLEN [address] [place] [address] COPD mixed type (CMS/HCC) (Primary Dx); Type 2 diabetes mellitus with diabetic polyneuropathy (CMS/HCC); Type 2 diabetes mellitus with hyperglycemia (CMS/HCC); 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/HCC); halfway (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 (CMS/HCC); Paroxysmal atrial fibrillation (CMS/HCC); Primary hypertension (CMS/HCC); Tobacco user; COVID [facility] Comment on above: COPD mixed type (CMS/HCC) (Primary Dx); Type 2 diabetes mellitus with diabetic polyneuropathy (CMS/HCC); Type 2 diabetes mellitus with hyperglycemia (CMS/HCC); 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/HCC); 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 (CMS/HCC); Paroxysmal atrial fibrillation (CMS/HCC); Primary hypertension (CMS/HCC); Tobacco user; COVID Start: 05-28-2024 End: 05-28-2025 Creatinine [Mass/volume] in Serum or Plasma Creatinine Lab Routine 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 (CMS/HCC) Expected: 05/28/2024 (Approximate), Expires: 05/28/2025 [facility] Comment on above: Expected: 05/28/2024 (Approximate), Expi res: 05/28/2025 Start: 05-28-2024 End: 05-28-2025 CT Abdomen and Pelvis W contrast IV CT abdomen pelvis w IV contrast Imaging Routine 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 (CMS/HCC) Expected: 05/28/2024 (Approximate), Expires: 05/28/2025 [facility] Work Phone: Comment on above: Expected: 05/28/2024 (Approximate), Expi res: 05/28/2025 Start: 05-19-2024 End: 05-19-2024 Patient encounter procedure [facility] Comment on above: Obesity (BMI 30-39.9) (Primary Dx); COPD mixed type (CMS/HCC) Start: 05-18-2024 End: 05-18-2025 Creatinine [Mass/volume] in Serum or Plasma Creatinine Lab Routine Lung nodule, multiple Expected: 05/18/2024 (Approximate), Expires: 05/18/2025 [facility] [employer] Work Phone: Comment on above: Expected: 05/18/2024 (Approximate), Expi res: 05/18/2025 Start: 05-06-2024 End: 05-06-2024 Patient encounter procedure 05/06/2024 1:20 PM EST Office Visit [facility] [address] [place] [phone] Maira Rush NP [address] [place] [phone] SANTO (obstructive sleep apnea) (Primary Dx); Lung nodule, multiple; COPD mixed type (CMS/HCC); Community acquired pneumonia, unspecified laterality; Primary hypertension (CMS/HCC); Atrial fibrillation, unspecified type (CMS/HCC); Type 2 diabetes mellitus without complication, with long-term current use of insulin (CMS/HCC); Tobacco user [facility] Comment on above: SANTO (obstructive sleep apnea) [...] Lymphadenopathy, generalized Expected: 04/22/2024 (Approximate), Expires: 04/22/2025 [facility] Work Phone: Comment on above: Expected: 04/22/2024 (Approximate), Expi res: 04/22/2025 Start: 04-22-2024 End: 04-22-2024 Patient encounter procedure 04/22/2024 9:20 AM EST Office Visit [facility] [address] [place] [address] Maira Rush NP [address] [place] [address] [facility] Start: 04-21-2024 End: 04-21-2024 Patient encounter procedure 04/21/2024 2:40 PM EST Office Visit [facility] [address] [place] [phone] Felton Allison MD [address] [place] [address] [facility] Start: 04-21-2024 End: 04-21-2025 25-hydroxyvitamin D3 [Mass/volume] in Serum or Plasma Vitamin D 25 hydroxy Total Lab Routine Type 2 diabetes mellitus with hyperglycemia, with long-term current use of insulin ([facility]) Expected: 04/21/2024 (Approximate), Expires: 04/21/2025 [facility] Comment on above: Expected: 04/21/2024 (Approximate), Expi res: 04/21/2025 Start: 04-21-2024 End: 04-21-2025 C-peptide C-peptide Lab Routine Type 2 diabetes mellitus with hyperglycemia, with long-term current use of insulin ([facility]) Expected: 04/21/2024 (Approximate), Expires: 04/21/2025 [facility] Work Phone: Comment on above: Expected: 04/21/2024 (Approximate), Expi res: 04/21/2025 Start: 04-21-2024 End: 04-21-2024 Chart abstracting 04/21/2024 Abstract [facility] [address] [place] [address] Felton Allison MD [address] [place] [address] [facility] Start: 04-21-2024 End: 04-21-2025 Lipid 1996 panel - Serum or Plasma Lipid panel Lab Routine Type 2 diabetes mellitus with hyperglycemia, with long-term current use of insulin ([facility]) Expected: 04/21/2024 (Approximate), Expires: 04/21/2025 [facility] Comment on above: Expected: 04/21/2024 (Approximate), Expi res: 04/21/2025 Start: 04-21-2024 End: 04-21-2025 Microalbumin/Creatinine panel in random Urine Microalbumin / creatinine urine ratio Lab Routine Type 2 diabetes mellitus with hyperglycemia, with long-term current use of insulin ([facility]) Expected: 04/21/2024 (Approximate), Expires: 04/21/2025 [facility] Comment on above: Expected: 04/21/2024 (Approximate), Expi res: 04/21/2025 Start: 04-21-2024 End: 04-21-2025 Renal function panel Renal function panel Lab Routine Type 2 diabetes mellitus with hyperglycemia, with long-term current use of insulin ([facility]) Expected: 04/21/2024 (Approximate), Expires: 04/21/2025 [facility] Comment on above: Expected: 04/21/2024 (Approximate), Expi res: 04/21/2025 Start: 03-11-2024 End: 03-11-2024 Patient encounter procedure [facility] Comment on above: Arrived Start: 02-25-2024 End: 02-25-2024 Patient encounter procedure 02/25/2024 11:00 AM EDT Office Visit [facility] [address] [place] [address] Maira Rush NP [address] [place] [address] [facility] Comment on above: Arrived Start: 02-17-2024 End: 02-16-2025 CBC W Auto Differential panel - Blood CBC and differential Lab Routine Dizziness and giddiness Expected: 02/17/2024 (Approximate), Expires: 02/16/2025 [facility] Comment on above: Expected: 02/17/2024 (Approximate), Expi res: 02/16/2025 Start: 02-17-2024 End: 02-16-2025 Comprehensive metabolic 2000 panel - Serum or Plasma Comprehensive metabolic panel Lab Routine Type 2 diabetes mellitus with hyperglycemia ([facility]) Primary hypertension ([facility]) Edema of extremities Type 2 diabetes mellitus without complication, with long-term current use of insulin ([facility]) Vitamin D deficiency Dizziness and giddiness Expected: 02/17/2024 (Approximate), Expires: 02/16/2025 [facility] Comment on above: Expected: 02/17/2024 (Approximate), Expi res: 02/16/2025 Start: 02-17-2024 End: 02-16-2025 Hemoglobin A1c/Hemoglobin.total in Blood Hemoglobin A1c Lab Routine Type 2 diabetes mellitus with hyperglycemia ([facility]/HCC) Expected: 02/17/2024 (Approximate), Expires: 02/16/2025 [facility] Comment on above: Expected: 02/17/2024 (Approximate), Expi res: 02/16/2025 Start: 02-17-2024 End: 02-16-2025 Magnesium [Mass/volume] in Serum or Plasma Magnesium Lab Routine Dizziness and giddiness Expected: 02/17/2024 (Approximate), Expires: 02/16/2025 [facility] Work Phone: Comment on above: Expected: 02/17/2024 (Approximate), Expi res: 02/16/2025 Start: 02-17-2024 End: 02-16-2025 Urinalysis complete panel - Urine Urinalysis with reflex microscopic (clean catch) Lab Routine Type 2 diabetes mellitus with hyperglycemia (CMS/HCC) Primary hypertension (CMS/HCC) Tobacco user Dizziness and giddiness Expected: 02/17/2024 (Approximate), Expires: 02/16/2025 [facility] Comment on above: Expected: 02/17/2024 (Approximate), Expi res: 02/16/2025 Start: 11-05-2023 Hemoglobin A1c measurement Diabetes: Hemoglobin A1C [facility] Start: 10-16-2023 End: 10-16-2023 Patient encounter procedure 10/16/2023 9:20 AM EDT Office Visit [facility] [address] [place] [address] Maira Rush NP [address] [place] [address] [facility] Start: 08-16-2023 End: 09-15-2024 MG Breast - bilateral Screening Bilateral screening mammogram Imaging Routine Encounter for screening mammogram for malignant neoplasm of breast Expected: 08/16/2023 (Approximate), Expires: 09/15/2024 [facility] Comment on above: Expected: 08/16/2023 (Approximate), Expi res: 09/15/2024 Start: 08-10-2023 Urine screening for protein Diabetes: Urine Protein Screening [facility] Start: 07-18-2023 End: 07-18-2023 Patient encounter procedure 07/18/2023 2:20 PM EST Office Visit [facility] [address] [place] [address] Maira Rush NP [address] [place] [address] Type 2 diabetes mellitus with diabetic neuropathy, with long-term current use of insulin (CMS/HCC) (Primary Dx); Primary hypertension (CMS/HCC); Gastroesophageal reflux disease, unspecified whether esophagitis present; Vitamin D deficiency; Type 2 diabetes mellitus with complication, without long-term current use of insulin (CMS/HCC); Mixed hyperlipidemia (CMS/HCC); Encounter for screening mammogram for malignant neoplasm of breast [facility] Comment on above: Type 2 diabetes mellitus [...] deficiency Expected: 07/18/2023 (Approximate), Expires: 07/18/2024 [facility] Comment on above: Expected: 07/18/2023 (Approximate), Expi res: 07/18/2024 Start: 07-18-2023 End: 07-18-2024 CBC W Auto Differential panel - Blood CBC and differential Lab Routine Gastroesophageal reflux disease, unspecified whether esophagitis present Expected: 07/18/2023 (Approximate), Expires: 07/18/2024 [facility] Work Phone: Comment on above: Expected: 07/18/2023 (Approximate), Expi res: 07/18/2024 Start: 07-18-2023 End: 07-18-2024 Comprehensive metabolic 2000 panel - Serum or Plasma Comprehensive metabolic panel Lab Routine Primary hypertension (CMS/HCC) Type 2 diabetes mellitus with complication, without long-term current use of insulin (CMS/HCC) Mixed hyperlipidemia (CMS/HCC) Expected: 07/18/2023 (Approximate), Expires: 07/18/2024 [facility] Comment on above: Expected: 07/18/2023 (Approximate), Expi res: 07/18/2024 Start: 07-18-2023 End: 07-18-2024 Hemoglobin A1c/Hemoglobin.total in Blood Hemoglobin A1c Lab Routine Type 2 diabetes mellitus with complication, without long-term current use of insulin (CMS/HCC) Expected: 07/18/2023 (Approximate), Expires: 07/18/2024 [facility] Comment on above: Expected: 07/18/2023 (Approximate), Expi res: 07/18/2024 Start: 07-18-2023 End: 07-18-2024 Lipid 1996 panel - Serum or Plasma Lipid panel Lab Routine Mixed hyperlipidemia ([facility]/HCC) Expected: 07/18/2023 (Approximate), Expires: 07/18/2024 [facility] Comment on above: Expected: 07/18/2023 (Approximate), Expi res: 07/18/2024 Start: 07-18-2023 End: 07-18-2024 Microalbumin/Creatinine panel in random Urine Microalbumin / creatinine, urine ratio Lab Routine Type 2 diabetes mellitus with complication, without long-term current use of insulin (CMS/HCC) Expected: 07/18/2023 (Approximate), Expires: 07/18/2024 [facility] Comment on above: Expected: 07/18/2023 (Approximate), Expi res: 07/18/2024 Start: 07-18-2023 End: 07-18-2024 Urinalysis complete panel - Urine Urinalysis with reflex microscopic (clean catch) Lab Routine Type 2 diabetes mellitus with complication, without long-term current use of insulin ([facility]/HCC) Expected: 07/18/2023 (Approximate), Expires: 07/18/2024 [facility] Comment on above: Expected: 07/18/2023 (Approximate), Expi res: 07/18/2024 Start: 06-19-2023 Screening for malignant neoplasm of breast Mammogram [facility] Start: 04-05-2023 Pneumococcal Vaccine: 65+ Years (2 of 2 - PCV) Pneumococcal Vaccine: 65+ Years (2 of 2 - PCV) [facility] Start: 02-01-2023 Influenza vaccination Influenza Vaccine (#1) [facility] Start: 01-07-2019 Hemoglobin A1c measurement Diabetes: Hemoglobin A1C [facility] Start: 1989 Screening for malignant neoplasm of cervix [facility] Start: 1980 Screening for malignant neoplasm of cervix Pap Smear [facility] Start: 1969 Glaucoma screening Diabetes: Retinopathy Screening [facility] Start: 1959 Screening for malignant neoplasm of colon [facility] AEROBIC CULTURE AEROBIC CULTURE Lab Routine 10/04/2024 2:22 AM EDT [facility] Immunizations Immunization Date Immunization Notes Care Provider Fa cility 05-06-2024 influenza, high dose seasonal, preservative-free Maira Aichholz [employer] Work Phone: [facility] 06-25-2023 Influenza, injectabl e, Madin Arline Canine Kidney, preservative free, quadrivalent Maira Aichholz [employer]SEM[employer] Work Phone: [facility] 04-05-2022 influenza, injectabl e, quadrivalent, preservative free Maira Aichholz [employer] HAND[employer]SEM[employer] Work Phone: [facility] 04-05-2022 pneumococcal polysaccharide vaccine, 23 valent Maira Aichholz [employer] HAND[employer]SEM[employer] Work Phone: [facility] 04-05-2022 influenza virus vacc ine, unspecified formulation Maira Aichholz [employer] HANDLE [employer]SEMBL[employer] Work Phone: [facility] 11-23-2021 diphtheria, tetanus toxoids and pertussis vaccine Maira Aichholz [employer] HAND[employer]SEMBLER Work Phone: [facility] 11-23-2021 tetanus toxoid, redu joaquin diphtheria toxoid, and acellular pertussis vaccine, adsorbed Maira Aichholz [employer] HAND[employer]SEM[employer] Work Phone: [facility] 2021 Influenza, injectabl e, Madin [place] Canine Kidney, preservative free, quadrivalent Maira Aichholz [employer] HANDLE [employer]SEMBLER Work Phone: [facility] 03-24-2020 tetanus toxoid, redu joaquin diphtheria toxoid, and acellular pertussis vaccine, adsorbed Maira Rush MOP HANDLE ASSEMBLER Work Phone: [facility] 03-25-2017 Influenza, injectabl e, Madin [place] Canine Kidney, preservative free, quadrivalent Maira Rush MOP HANDLE ASSEMBLER Work Phone: [facility] Payers Date Payer Category Payer Medicaid [employer] [place] [employer] [id number] 2017-Present [address] [place] [address] [id number] 2017 Medicaid (Managed Care) [facility]ICA[facility] [id number] 1959 Unknown [id number] 2.0.1.223464.3.579.2. 647 1959 Unknown [id number] 07.19.830.1.133158.3.579.2. 647 1959 Unknown [id number] 2.840.1.836699.3.579.2. 593 1959 Unknown [id number] 2.16840.1.729309.3.579.2. 593 1959 Unknown [id number] 2.16840.1.037299.3.579.2. 593 1959 Unknown [id number] 2.840.1.382789.3.579.2. 593 1959 Unknown [id number] 2.16.840.1.947775.3.579.2. 593 1959 Unknown [id number] 2.16.840.1.869815.3.579.2. 593 1959 Unknown [id number] 2.16.840.1.319390.3.579.2. 593 1959 Unknown [id number] 2.16.840.1.687335.3.579.2. 1286 1959 Unknown [id number] 2.16.840.1.019733.3.579.2. 1286 1959 Unknown [id number] 2.16.840.1.514532.3.579.2. 125 1959 Unknown [id number] 2.16.840.1.934426.3.579.2. 9 1959 Unknown [id number] 2.16.840.1.586232.3.579.2. 125 1959 Unknown [id number] 2.16.840.1.737560.3.579.2. 125 1959 Unknown [id number] 2.16.840.1.973080.3.579.2. 1258 1959 Unknown [id number] 2.16.840.1.084313.3.579.2. 1259 1959 Unknown [id number] 2.16.840.1.193874.3.579.2. 125 1959 Unknown [id number] 2.16.840.1.351012.3.579.2. 1259 1959 Unknown [id number] 2.16.840.1.510605.3.579.2. 1258 1959 Unknown [id number] 2.16.840.1.510142.3.579.2. 1259 1959 Unknown [id number] 2.16.840.1.410773.3.579.2. 1258 1959 Unknown [id number] 2.16.840.1.912355.3.579.2. 1259 1959 Unknown [id number] 2.16.840.1.224237.3.579.2. 1259 1959 Unknown [id number] 2.16.840.1.456219.3.579.2. 1259 1959 Unknown [id number] 2.16.840.1.188981.3.579.2. 1286 1959 Unknown [id number] 2.16.840.1.828865.3.579.2. 1286 1959 Unknown [id number] Unknown Social History Date Type Detail Facility Start: 07-15-2023 Tobacco smoking stat [facility] Ex-smoker [facility] Start: 06-03-1982 End: 04-03-2022 History of tobacco use Current smoker [facility] Start: 06-03-1982 End: 04-03-2022 History of tobacco use Cigarette Smoker [facility] Start: 07-15-2023 End: 12-14-2024 Cigarettes smoked current (pack per day) - Reported 0.5 [facility] Start: 07-18-2023 End: 12-14-2024 Alcohol intake Ex-drinker (finding) [facility] Start: 06-29-2023 End: 12-14-2024 Tobacco use panel [facility] Start: 07-15-2023 Alcohol Comment coffee 1-2 cup s per day [facility] Start: 1960 Sex Assigned At Not [...] the mortgage or rent on time? Yes [facility] Medical Equipment Procedure Code Equipment Code Equipment Origin al Text Equipment Identifier Dates [id number] Start: 06-24-2023 End: 08-26-2024 USE TO TEST BLOO D SUGAR FOUR TIMES A DAY [id number] Start: 08-26-2024 USE FOUR TIMES A DAY [id number] Star t: 12-17-2024 USE DIRECTED PER PACKAGE INSTRUCTIONS *NEW RX REQUEST* [id number] Start: 12-15-2024 USE FOUR TIMES A DAY *NEW RX REQUEST* [id number] Start: 12-15-2024 Functional Status Date Assessment Result Facility 12-14-2024 Total score [AUDIT-C] 0 12/15/19 25 1:49 PM EDT Chandrika Danielson MA [facility] Clinical Notes 06-07-2022 to 12-14-2024 [...] , stated she loaned her [place] in [place] 400.00 over a 3 month period and did not pay her rent. She is not sure where she will be going, has another nephew in [place], would take her but car wont make it down here to get her and her van wont make it up there. Her is in a longterm as well here in [place]. She states she would just come to [...] MCG (2000 UT) tablet Daily Continuous Glucose Strategic Intelligence Officer (FreeStyle Julisa 2 [place]) device 1 kit, Does not apply, Every 14 days Continuous Glucose Strategic Intelligence Officer (FreeStyle Julisa 2 [place]) device USE DIRECTED Continuous Glucose Sensor (FreeStyle Julisa 2 Sensor) [facility] USE TO MONITOR BLOOD SUGAR DIRECTED. CHANGE [...] day (morning and mid-day) Sure Comfort Pen [place] 32G X 4 MM misc 1 each, [...] Acute pancreatitis without necrosis or infection, unspecified ([facility]) Anxiety and depression 07/18/2023 Atrial fibrillation (HCC) 07/18/2023 Body mass index (BMI) 40.0-44.9, adult ([facility]) COPD mixed type ([facility]) 05/23/2023 Dietary counseling and surveillance Drug-induced acute pancreatitis ([facility]) 07/18/2023 Edema of extremities 07/18/2023 Essential (primary) hypertension 12/04/2010 GERD (gastroesophageal reflux disease) 07/18/2023 HLD (hyperlipidemia) 07/18/2023 Hx of being hospitalized PNEUMONIA halfway (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 ([facility]) Medical non-compliance 07/18/2023 Morbid obesity with body mass index (BMI) of 40.0 to 49.9 ([facility]) 07/18/2023 Neuropathy, diabetic ([facility]) 07/18/2023 SANTO (obstructive sleep apnea) 07/18/2023 Osteoporosis 07/18/2023 Seasonal allergies 07/18/2023 Tobacco user 07/18/2023 Type 2 diabetes mellitus with complication, without long-term current use of insulin ([facility]) 07/18/2023 Urge and stress [...] complication, with long-term current use of insulin ([facility]) - Primary Check blood sugars daily, notify [...] going to matter documented in this encounter [facility] 12-14-2024 Instructions Maira Rush NP - 12/14/2024 11:30 AM EDT Chronic care mgmt documented in this encounter [facility] 12-01-2024 History of Presen t illness Narrative [...] MCG (2000 UT) tablet Daily Continuous Glucose Strategic Intelligence Officer (FreeStyle Julisa 2 [place]) device 1 kit, Does not apply, Every 14 days Continuous Glucose Strategic Intelligence Officer (FreeStyle Julisa 2 [place]) device USE DIRECTED Continuous Glucose Sensor (FreeStyle [...] day (morning and mid-day) Sure Comfort Pen [place] 32G X 4 MM misc 1 each, [...] Acute pancreatitis without necrosis or infection, unspecified ([facility]) Anxiety and depression 07/18/2023 Atrial fibrillation ([facility]) 07/18/2023 Body mass index (BMI) 40.0-44.9, adult ([facility]) COPD mixed type ([facility]) 05/23/2023 Dietary counseling and surveillance Drug-induced acute pancreatitis ([facility]) 07/18/2023 Edema of extremities 07/18/2023 Essential (primary) hypertension 12/04/2010 GERD (gastroesophageal reflux disease) 07/18/2023 HLD (hyperlipidemia) 07/18/2023 Hx of being hospitalized PNEUMONIA halfway (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 ([facility]) Medical non-compliance 07/18/2023 Morbid obesity with body mass index (BMI) of 40.0 to 49.9 ([facility] 07/18/2023 Neuropathy, diabetic ([facility]) 07/18/2023 SANTO (obstructive sleep apnea) 07/18/2023 Osteoporosis 07/18/2023 Seasonal allergies 07/18/2023 Tobacco user 07/18/2023 Type 2 diabetes mellitus with complication, without long-term current use of insulin ([facility]) 07/18/2023 Urge and stress [...] 150 MG tablet documented in this encounter [facility] 12-01-2024 Instructions Maira Rush NP - 12/01/2024 1:40 PM EDT Nystatin ointment twice a day to affected area documented in this encounter [facility] 10-14-2024 History of Presen t illness Narrative Associated Problem(s): Mild episode of recurrent major depressive disorder (HCC) (CMS/HCC) Stressors: spouse in longterm , also not a strong support system Current med: paxil Will add medication: will trail wellbutrin Associated Problem(s): Abscess of left groin Finish atb According to [facility] discharge notes, she was to have [...] one helping with wound care-packing She thought [id number] was suppose to but she had called [...] admit to depression secondary to her in longterm with declining health. We have adjusted her [...] mg, Oral, 4 times daily Continuous Glucose Strategic Intelligence Officer (FreeStyle Julisa 2 [place]) device 1 kit, Does not apply, Every 14 days Continuous Glucose Strategic Intelligence Officer (FreeStyle Julisa 2 [place]) device USE DIRECTED Continuous Glucose Sensor (FreeStyle [...] day (morning and mid-day) Sure Comfort Pen [place] 32G X 4 MM misc 1 each, [...] necrosis or infection, unspecified Anxiety and depression ([facility]) 07/18/2023 Atrial fibrillation ([facility]) 07/18/2023 Body mass index (BMI) 40.0-44.9, adult ([facility]) COPD mixed type ([facility]) 05/23/2023 Dietary counseling and surveillance Drug-induced acute pancreatitis 07/18/2023 Edema of extremities 07/18/2023 Essential (primary) hypertension ([facility]) 12/04/2010 GERD (gastroesophageal reflux disease) 07/18/2023 HLD (hyperlipidemia) ([facility]) 07/18/2023 Hx of being hospitalized PNEUMONIA halfway (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 ([facility]) Medical non-compliance 07/18/2023 Morbid obesity with body mass index (BMI) of 40.0 to 49.9 ([facility]) 07/18/2023 Neuropathy, diabetic ([facility]) 07/18/2023 SANTO (obstructive sleep apnea) 07/18/2023 Osteoporosis ([facility]) 07/18/2023 Seasonal allergies 07/18/2023 Tobacco user 07/18/2023 Type 2 diabetes mellitus with complication, without long-term current use of insulin ([facility]) 07/18/2023 Urge and stress incontinence 07/18/2023 Vitamin [...] of left groin Finish atb According to [facility] discharge notes, she was to have [...] dania and arb documented in this encounter [facility] 08-06-2024 History of Presen t illness Narrative September- dr kalina Bender-pulmonology (walk test) 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 Images from the original note were not included. Deane Dior is a 64 y.o. female presents [...] MCG (2000 UT) tablet Daily Continuous Glucose Strategic Intelligence Officer (FreeStyle Julisa 2 [place]) device 1 kit, Does not apply, Every 14 days Continuous Glucose Strategic Intelligence Officer (FreeStyle Julisa 2 [place]) device USE DIRECTED Continuous Glucose Sensor (FreeStyle [...] day (morning and mid-day) Sure Comfort Pen [place] 32G X 4 MM misc 1 each, [...] necrosis or infection, unspecified Anxiety and depression ([facility]) 07/18/2023 Atrial fibrillation ([facility]) 07/18/2023 Body mass index (BMI) 40.0-44.9, adult ([facility]) COPD mixed type ([facility]) 05/23/2023 Dietary counseling and surveillance Drug-induced acute pancreatitis 07/18/2023 Edema of extremities 07/18/2023 Essential (primary) hypertension ([facility]) 12/04/2010 GERD (gastroesophageal reflux disease) 07/18/2023 HLD (hyperlipidemia) ([facility]) 07/18/2023 Hx of being hospitalized PNEUMONIA 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 ([facility]) Medical non-compliance 07/18/2023 Morbid obesity with body mass index (BMI) of 40.0 to 49.9 ([facility]) 07/18/2023 Neuropathy, diabetic ([facility]) 07/18/2023 SANTO (obstructive sleep apnea) 07/18/2023 Osteoporosis ([facility]) 07/18/2023 Seasonal allergies 07/18/2023 Tobacco user 07/18/2023 Type 2 diabetes mellitus with complication, without long-term current use of insulin ([facility]) 07/18/2023 Urge and stress incontinence 07/18/2023 Vitamin [...] Items Addressed This Visit COPD mixed type ([facility]) Recommend quitting smoking Continue inhalers Fu with licensed audiologist: has a walk test coming up Recommend follow up Primary hypertension ([facility]) Please check blood pressure daily and record DASH diet Limit caffeine Take medication as directed Contact office if chest pain, pressure, dizziness, shortness of breath, swelling legs Recommend slow position changes Current meds: b dania and arb Relevant Medications losartan (Cozaar) 100 MG tablet spironolactone (Aldactone) 25 MG tablet JORDAN (generalized anxiety disorder) ([facility]) - Primary Current med: paxil Stressors: spouse in longterm, pt does not have a large support [...] that it is the responsibility of the voting machine repairer of the YARIEL, no this healthcare provider. The patient verbalizes understanding of this . Has a cat Relevant Medications PARoxetine (Paxil) 30 MG tablet SANTO (obstructive sleep apnea) Non compliance , has been instructed in the past on importance of need to wear PAP Not wearing risk stroke, [place], Atrial fibrillation ([facility]) No current afib Current meds: xarelto, b [...] not wear PAP as directed HLD (hyperlipidemia) ([facility]) Relevant Medications rosuvastatin (Crestor) 5 MG tablet RESOLVED: Anxiety and depression ([facility]) Encounter for screening mammogram for malignant neoplasm [...] complication, with long-term current use of insulin ([facility]) Check blood sugars daily, notify if [...] Type 2 diabetes mellitus with diabetic polyneuropathy ([facility]) Takes gabapentin OARRS reviewed Recommend freq foot checks for wounds, recommend proper fitting footwear as well as adequate diabetic control 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 ([facility]) Mild episode of recurrent major depressive disorder (HCC) ([facility]) Stressors: spouse in longterm , also not a strong support system [...] that it is the responsibility of the voting machine repairer of the YARIEL, no this healthcare provider. [...] polyneuropathy associated with type 2 diabetes mellitus ([facility]) Relevant Medications gabapentin (Neurontin) 600 MG tablet [...] episode of recurrent major depressive disorder (HCC) ([facility]) Stressors: spouse in longterm , also not a strong support system [...] that it is the responsibility of the voting machine repairer of the YARIEL, no this healthcare provider. The patient verbalizes understanding of this . Has a cat Associated Problem(s): JORDAN (generalized anxiety disorder) ([facility]) Current med: paxil Stressors: spouse in longterm, pt does not have a large support [...] that it is the responsibility of the voting machine repairer of the YARIEL, no this healthcare provider. The patient verbalizes understanding of this . Has a cat Associated Problem(s): Medical non-compliance Has not had fu with pulmonology Does not wear PAP as directed Associated Problem(s): Type 2 diabetes mellitus without complication, with long-term current use of insulin ([facility]) Check blood sugars daily, notify if [...] Recommend quitting smoking Continue inhalers Fu with licensed audiologist: has a walk test coming up Recommend follow up Associated Problem(s): Type 2 diabetes mellitus with diabetic polyneuropathy ([facility]) Takes gabapentin OARRS reviewed Recommend freq foot checks for wounds, recommend proper fitting footwear as well as adequate diabetic control Associated Problem(s): SANTO (obstructive sleep apnea) Non compliance , has been instructed in the past on importance of need to wear PAP Not wearing risk stroke, [place], documented in this encounter [facility] 08-06-2024 History of Presen t illness Narrative September- dr kalina Bender-pulmonology (walk test) 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 Images from the original note were not [...] 50 MCG (1999) tablet Daily Continuous Glucose Strategic Intelligence Officer (FreeStyle Julisa 2 [place]) device 1 kit, Does not apply, Every 14 days Continuous Glucose Strategic Intelligence Officer (FreeStyle Julisa 2 [place]) device USE DIRECTED Continuous Glucose Sensor (FreeStyle [...] day (morning and mid-day) Sure Comfort Pen [place] 32G X 4 MM misc 1 each, [...] necrosis or infection, unspecified Anxiety and depression ([facility]) 07/18/2023 Atrial fibrillation ([facility]) 07/18/2023 Body mass index (BMI) 40.0-44.9, adult ([facility]) COPD mixed type ([facility]) 05/23/2023 Dietary counseling and surveillance Drug-induced acute pancreatitis 07/18/2023 Edema of extremities 07/18/2023 Essential (primary) hypertension ([facility]) 12/04/2010 GERD (gastroesophageal reflux disease) 07/18/2023 HLD (hyperlipidemia) ([facility]) 07/18/2023 Hx of being hospitalized PNEUMONIA halfway (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 ([facility]) Medical non-compliance 07/18/2023 Morbid obesity with body mass index (BMI) of 40.0 to 49.9 ([facility]) 07/18/2023 Neuropathy, diabetic ([facility]) 07/18/2023 SANTO (obstructive sleep apnea) 07/18/2023 Osteoporosis ([facility]) 07/18/2023 Seasonal allergies 07/18/2023 Tobacco user 07/18/2023 Type 2 diabetes mellitus with complication, without long-term current use of insulin ([facility]) 07/18/2023 Urge and stress incontinence 07/18/2023 Vitamin [...] Items Addressed This Visit COPD mixed type ([facility]) Recommend quitting smoking Continue inhalers Fu with licensed audiologist: has a walk test coming up Recommend follow up Primary hypertension ([facility]) Please check blood pressure daily and record DASH diet Limit caffeine Take medication as directed Contact office if chest pain, pressure, dizziness, shortness of breath, swelling legs Recommend slow position changes Current meds: b dania and arb Relevant Medications losartan (Cozaar) 100 MG tablet spironolactone (Aldactone) 25 MG tablet JORDAN (generalized anxiety disorder) ([facility]) - Primary Current med: paxil Stressors: spouse in longterm, pt does not have a large support [...] that it is the responsibility of the voting machine repairer of the YARIEL, no this healthcare provider. The patient verbalizes understanding of this . Has a cat Relevant Medications PARoxetine (Paxil) 30 MG tablet SANTO (obstructive sleep apnea) Non compliance , has been instructed in the past on importance of need to wear PAP Not wearing risk stroke, [place], Atrial fibrillation ([facility]) No current afib Current meds: xarelto, b [...] not wear PAP as directed HLD (hyperlipidemia) ([facility]) Relevant Medications rosuvastatin (Crestor) 5 MG tablet RESOLVED: Anxiety and depression ([facility]) Encounter for screening mammogram for malignant neoplasm [...] complication, with long-term current use of insulin ([facility]) Check blood sugars daily, notify if [...] Type 2 diabetes mellitus with diabetic polyneuropathy ([facility]) Takes gabapentin OARRS reviewed Recommend freq foot checks for wounds, recommend proper fitting footwear as well as adequate diabetic control 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 ([facility]) Mild episode of recurrent major depressive disorder (HCC) ([facility]) Stressors: spouse in longterm , also not a strong support system [...] that it is the responsibility of the voting machine repairer of the YARIEL, no this healthcare provider. [...] polyneuropathy associated with type 2 diabetes mellitus ([facility]) Relevant Medications gabapentin (Neurontin) 600 MG tablet [...] episode of recurrent major depressive disorder (HCC) ([facility]) Stressors: spouse in longterm , also not a strong support system [...] that it is the responsibility of the voting machine repairer of the YARIEL, no this healthcare provider. The patient verbalizes understanding of this . Has a cat Associated Problem(s): JORDAN (generalized anxiety disorder) ([facility]) Current med: paxil Stressors: spouse in longterm, pt does not have a large support [...] that it is the responsibility of the voting machine repairer of the YARIEL, no this healthcare provider. The patient verbalizes understanding of this . Has a cat Associated Problem(s): Medical non-compliance Has not had fu with pulmonology Does not wear PAP as directed Associated Problem(s): Type 2 diabetes mellitus without complication, with long-term current use of insulin ([facility]) Check blood sugars daily, notify if [...] Recommend quitting smoking Continue inhalers Fu with licensed audiologist: has a walk test coming up Recommend [...] risk stroke, [place], documented in this encounter [facility] 08-06-2024 Instructions Maira Rush NP - 08/06/2024 9:20 AM EST Increase the paroxetine to 30mg daily, If worsening in depression or anxiety with the medication adjustment call the office Also will send order to [facility] for mammogram I will check w cardiology about aspirin documented in this encounter [facility] 07-06-2024 Note Cardiology Clinic No te Subjective [...] mass index (BMI) of 40.0 to 49.9 ([facility]) Neuropathy, diabetic ([facility]) Open wound Osteoporosis Seasonal allergies Tobacco user Urge and stress incontinence Vitamin D deficiency 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 CAP (community acquired pneumonia) COVID Dizziness and giddiness Hyperglycemia 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 classified elsewhere Injury of back of head halfway (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 ([facility]/HCC) Lung nodule, multiple Lymphadenopathy, generalized Muscle weakness (generalized) Other abnormalities of gait and mobility Other thrombophilia Oxygen dependent Right wrist pain Stage III pressure ulcer of sacral region ([facility]/HCC) Type 2 diabetes mellitus with diabetic polyneuropathy ([facility]HCC) Type 2 diabetes mellitus with hyperglycemia ([facility]) Weakness Family History Problem Relation Name Age [...] ( (more content not included)... [facility] 06-09-2024 History of Presen t illness Narrative Denae Dior is a 63 y.o. female presents with chief complaint of COPD HPI: Here for an ER fu. Was last seen in office on 05/28/24 with URI symptoms, d/t assessment and chronic conditions she was sent to [facility] ER, she was ultimately dx with COVID, as well as sent home on steroids (40mg daily for 5 days) and doxycycline for COPD exacerbation. She returned to the [facility] ER on 06/01/24 with complaints of [...] MCG (1999 UT) tablet Daily Continuous Glucose Strategic Intelligence Officer (FreeStyle Julisa 2 [place]) device 1 kit, Does not apply, Every 14 days Continuous Glucose Strategic Intelligence Officer (FreeStyle Julisa 2 [place]) device USE DIRECTED Continuous Glucose Sensor (FreeStyle [...] day (morning and mid-day) Sure Comfort Pen [place] 32G X 4 MM misc 1 each, [...] necrosis or infection, unspecified Anxiety and depression ([facility]) 07/18/2023 Atrial fibrillation ([facility]) 07/18/2023 Body mass index (BMI) 40.0-44.9, adult ([facility]) COPD mixed type ([facility]) 05/23/2023 Dietary counseling and surveillance Drug-induced acute pancreatitis 07/18/2023 Edema of extremities 07/18/2023 Essential (primary) hypertension ([facility]) 12/04/2010 GERD (gastroesophageal reflux disease) 07/18/2023 HLD (hyperlipidemia) ([facility]) 07/18/2023 Hx of being hospitalized PNEUMONIA halfway (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 ([facility]) Medical non-compliance 07/18/2023 Morbid obesity with body mass index (BMI) of 40.0 to 49.9 ([facility]) 07/18/2023 Neuropathy, diabetic ([facility]) 07/18/2023 SANTO (obstructive sleep apnea) 07/18/2023 Osteoporosis ([facility]) 07/18/2023 Seasonal allergies 07/18/2023 Tobacco user 07/18/2023 Type 2 diabetes mellitus with complication, without long-term current use of insulin ([facility]) 07/18/2023 Urge and stress incontinence 07/18/2023 Vitamin [...] Items Addressed This Visit COPD mixed type ([facility]) Quit smoking Continue inhalers Fu with pulmonologoist Recent covid dx Primary hypertension ([facility]) Please check blood pressure daily and record DASH diet Limit caffeine Take medication as directed Contact office if chest pain, pressure, dizziness, shortness of breath, swelling legs Recommend slow position changes Current meds: b dania and arb Atrial fibrillation ([facility]) No current afib Current meds: asa, [...] facility 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 classified elsewhere ([facility]) Type 2 diabetes mellitus with hyperglycemia ([facility]) Check blood sugars daily, notify if [...] Type 2 diabetes mellitus with diabetic polyneuropathy ([facility]) Long standing DM, recommend freq foot checks for open wounds Good fitting shoes Diabetes control 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 ([facility]) Associated Problem(s): COVID Was dx 05/28/24 w [...] Problem(s): Type 2 diabetes mellitus with hyperglycemia ([facility]) Check blood sugars daily, notify if [...] shoes Diabetes control documented in this encounter [facility] 06-09-2024 Instructions Maira Rush NP - 06/09/2024 11:00 AM EST Diabetes: please call and schedule a diabetic eye exam Smokin cigs daily for this week, then next week 2 cigs daily, then week #3: 1 cig daily, then week #4: stop: You can do this, do it for your overall health and health of your lungs documented in this encounter [facility] 05-28-2024 History of Presen t illness Narrative Associated Problem(s): COPD with acute exacerbation ([facility]) Recent hospitalization with pneumonia in the last few months Is on home O2, also with nebs at home, states no difference in her wheezing with or without the neb UTD on flu shot, not on COVID Had CT chest on 05/25/24 but did not have sxs at that time Her is in a longterm, possible exposure to something there Differentials: atypical [...] 2 times daily with meals Continuous Glucose Strategic Intelligence Officer (FreeStyle Julisa 2 [place]) device 1 kit, Does not apply, Every 14 days Continuous Glucose Strategic Intelligence Officer (FreeStyle Julisa 2 [place]) device USE DIRECTED Continuous Glucose Sensor (FreeStyle [...] day (morning and mid-day) Sure Comfort Pen [place] 32G X 4 MM misc 1 each, [...] necrosis or infection, unspecified Anxiety and depression ([facility]) 07/18/2023 Atrial fibrillation ([facility]) 07/18/2023 Body mass index (BMI) 40.0-44.9, adult ([facility]) COPD mixed type ([facility]) 05/23/2023 Dietary counseling and surveillance Drug-induced acute pancreatitis 07/18/2023 Edema of extremities 07/18/2023 Essential (primary) hypertension ([facility]) 12/04/2010 GERD (gastroesophageal reflux disease) 07/18/2023 HLD (hyperlipidemia) ([facility]) 07/18/2023 Hx of being hospitalized PNEUMONIA 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 ([facility]) Medical non-compliance 07/18/2023 Morbid obesity with body mass index (BMI) of 40.0 to 49.9 ([facility]) 07/18/2023 Neuropathy, diabetic ([facility]) 07/18/2023 SANTO (obstructive sleep apnea) 07/18/2023 Osteoporosis ([facility]) 07/18/2023 Seasonal allergies 07/18/2023 Tobacco user 07/18/2023 Type 2 diabetes mellitus with complication, without long-term current use of insulin ([facility]) 07/18/2023 Urge and stress incontinence 07/18/2023 Vitamin [...] ASSESSMENT AND PLAN: documented in this encounter [facility] 05-28-2024 History of Presen t illness Narrative Associated Problem(s): 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 (CMS/HCC) Noted on past CT scans, felt to be adenoma, however is getting larger in size Will order CT scan adrenal gland protocol documented in this encounter [facility] 05-19-2024 History of Presen t illness Narrative [...] D-3) 50 mcg, Oral, Daily Continuous Glucose Strategic Intelligence Officer (FreeStyle Julisa 2 [place]) device 1 kit, Does not apply, Every 14 days Continuous Glucose Strategic Intelligence Officer (FreeStyle Julisa 2 [place]) device USE DIRECTED Continuous Glucose Sensor (FreeStyle [...] day (morning and mid-day) Sure Comfort Pen [place] 32G X 4 MM misc 1 each, [...] necrosis or infection, unspecified Anxiety and depression ([facility]) 07/18/2023 Atrial fibrillation ([facility]) 07/18/2023 Body mass index (BMI) 40.0-44.9, adult ([facility]) COPD mixed type ([facility]) 05/23/2023 Dietary counseling and surveillance Drug-induced acute pancreatitis 07/18/2023 Edema of extremities 07/18/2023 Essential (primary) hypertension ([facility]) 12/04/2010 GERD (gastroesophageal reflux disease) 07/18/2023 HLD (hyperlipidemia) ([facility]) 07/18/2023 Hx of being hospitalized PNEUMONIA 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 ([facility]) Medical non-compliance 07/18/2023 Morbid obesity with body mass index (BMI) of 40.0 to 49.9 ([facility]) 07/18/2023 Neuropathy, diabetic ([facility]) 07/18/2023 SANTO (obstructive sleep apnea) 07/18/2023 Osteoporosis ([facility]) 07/18/2023 Seasonal allergies 07/18/2023 Tobacco user 07/18/2023 Type 2 diabetes mellitus with complication, without long-term current use of insulin ([facility]) 07/18/2023 Urge and stress incontinence 07/18/2023 Vitamin [...] as well as stress from S.O. in longterm Right wrist pain - Primary No hx [...] as well as stress from S.O. in longterm documented in this encounter [facility] 05-19-2024 Instructions Maira Rush NP - 05/19/2024 2:00 PM EST Cosmo wrap to right wrist for [address] ice to affected area 3-4 times daily for 20 minutes each Follow up if not better documented in this encounter [facility] 05-06-2024 History of Presen t illness Narrative [...] D-3) 50 mcg, Oral, Daily Continuous Glucose Strategic Intelligence Officer (FreeStyle Julisa 2 [place]) device 1 kit, Does not apply, Every 14 days Continuous Glucose Strategic Intelligence Officer (FreeStyle Julisa 2 [place]) device USE DIRECTED Continuous Glucose Sensor (FreeStyle [...] day (morning and mid-day) Sure Comfort Pen [place] 32G X 4 MM misc 1 each, [...] necrosis or infection, unspecified Anxiety and depression ([facility]) 07/18/2023 Atrial fibrillation ([facility]) 07/18/2023 Body mass index (BMI) 40.0-44.9, adult ([facility]) COPD mixed type ([facility]) 05/23/2023 Dietary counseling and surveillance Drug-induced acute pancreatitis 07/18/2023 Edema of extremities 07/18/2023 Essential (primary) hypertension ([facility]) 12/04/2010 GERD (gastroesophageal reflux disease) 07/18/2023 HLD (hyperlipidemia) ([facility]) 07/18/2023 Hx of being hospitalized PNEUMONIA halfway (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 ([facility]) Medical non-compliance 07/18/2023 Morbid obesity with body mass index (BMI) of 40.0 to 49.9 ([facility]) 07/18/2023 Neuropathy, diabetic ([facility]) 07/18/2023 SANTO (obstructive sleep apnea) 07/18/2023 Osteoporosis ([facility]) 07/18/2023 Seasonal allergies 07/18/2023 Tobacco user 07/18/2023 Type 2 diabetes mellitus with complication, without long-term current use of insulin ([facility]) 07/18/2023 Urge and stress [...] Items Addressed This Visit COPD mixed type ([facility]) - Primary Quit smoking Continue inhalers Fu with pulmonologoist Primary hypertension ([facility]) Please check blood pressure daily and [...] Not wearing risk stroke, [place], Atrial fibrillation ([facility]) Cont current meds and anticoagulation Tobacco [...] complication, with long-term current use of insulin ([facility]) Check blood sugars daily, notify if [...] Needs fu CT due now, order to [facility] CAP (community acquired pneumonia) Finished atb Breathing: improved Fever:none No productive cough Other Visit Diagnoses Needs flu shot Relevant Orders Flu vaccine, high dose seasonal, PF ([id number]) (Fluzone High Dose) (Completed) Associated Problem(s): Tobacco [...] complication, with long-term current use of insulin ([facility]) Check blood sugars daily, notify if [...] arb and asa Associated Problem(s): Atrial fibrillation ([facility]) Cont current meds and anticoagulation Associated Problem(s): Primary hypertension ([facility]) Please check blood pressure daily and [...] Needs fu CT due now, order to [facility] Associated Problem(s): SANTO (obstructive sleep apnea) Non compliance , has been instructed in the past on importance of need to wear PAP Not wearing risk stroke, [place], documented in this encounter [facility] 05-06-2024 Instructions Maira Rush NP - 05/06/2024 1:20 PM EST Diabetes: continue with dr allison, please call and schedule a diabetic eye exam Rail Walker: please call to schedule an appointment Mammogram: I will fax order to [facility] documented in this encounter [facility] 04-22-2024 History of Presen t illness Narrative [...] Hospitalizations in the last year: yes Specialist: Chief Electrician [facility] Kalina Torres for Endo/DM, Rail Walker: Janet-has not seen in a while Recent [...] being taken. She does not see a curing pickling packer.Eye exam is not current. SUBJECTIVE: MEDICATIONS: Current [...] D-3) 50 mcg, Oral, Daily Continuous Glucose Strategic Intelligence Officer (FreeStyle Julisa 2 [place]) device Continuous Glucose Strategic Intelligence Officer (FreeStyle Julisa 2 [place]) device 1 kit, Does not apply, Every [...] day (morning and mid-day) Sure Comfort Pen [place] 32G X 4 MM misc 1 each, [...] necrosis or infection, unspecified Anxiety and depression ([facility]) 07/18/2023 Atrial fibrillation ([facility]) 07/18/2023 Body mass index (BMI) 40.0-44.9, adult ([facility]) COPD mixed type ([facility]) 05/23/2023 Dietary counseling and surveillance Drug-induced acute pancreatitis 07/18/2023 Edema of extremities 07/18/2023 Essential (primary) hypertension ([facility]) 12/04/2010 GERD (gastroesophageal reflux disease) 07/18/2023 HLD (hyperlipidemia) ([facility]) 07/18/2023 Hx of being hospitalized PNEUMONIA halfway (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 ([facility]) Medical non-compliance 07/18/2023 Morbid obesity with body mass index (BMI) of 40.0 to 49.9 ([facility]) 07/18/2023 Neuropathy, diabetic ([facility]) 07/18/2023 SANTO (obstructive sleep apnea) 07/18/2023 Osteoporosis ([facility]) 07/18/2023 Seasonal allergies 07/18/2023 Tobacco user 07/18/2023 Type 2 diabetes mellitus with complication, without long-term current use of insulin ([facility]) 07/18/2023 Urge and stress incontinence 07/18/2023 Vitamin [...] CT chest w IV contrast Primary hypertension ([facility]) Please check blood pressure daily and record DASH diet Limit caffeine Take medication as directed Contact office if chest pain, pressure, dizziness, shortness of breath, swelling legs Recommend slow position changes Relevant Medications spironolactone (Aldactone) 25 MG tablet losartan (Cozaar) 100 MG tablet Type 2 diabetes mellitus with diabetic neuropathy, with long-term current use of insulin ([facility]) Recommend tight blood sugar control Relevant [...] (Crestor) 5 MG tablet Anxiety and depression ([facility]) At last appt we increased dose of paxil: Relevant Medications PARoxetine (Paxil) 20 MG tablet Obesity (BMI 30-39.9) Type 2 diabetes mellitus without complication, with long-term current use of insulin ([facility]) Continue with dr allison for management [...] yearly and prn documented in this encounter [facility] 04-22-2024 Instructions Maira Rush NP - 04/22/2024 9:20 AM EST New atb for pneumonia Need to schedule with pulmonology and eye doctor Eye doctor is : [phone] [facility] Lung doctor: [place] office [phone] documented in this encounter [facility] 04-21-2024 History of Presen t illness Narrative [...] (VITAMIN D-3) 2,000 Units, Daily Continuous Glucose Strategic Intelligence Officer (FreeStyle Julisa 2 [place]) device Continuous Glucose Sensor (FreeStyle Julisa 2 Sensor) [facility] empagliflozin (JARDIANCE) 25 mg, Oral, Daily empagliflozin [...] day (morning and mid-day) Sure Comfort Pen [place] 32G X 4 MM misc 1 each, [...] necrosis or infection, unspecified Anxiety and depression ([facility]) 07/18/2023 Atrial fibrillation ([facility]) 07/18/2023 Body mass index (BMI) 40.0-44.9, adult ([facility]) COPD mixed type ([facility]) 05/23/2023 Dietary counseling and surveillance Drug-induced acute pancreatitis 07/18/2023 Edema of extremities 07/18/2023 Essential (primary) hypertension ([facility]) 12/04/2010 GERD (gastroesophageal reflux disease) 07/18/2023 HLD (hyperlipidemia) ([facility]) 07/18/2023 Hx of being hospitalized PNEUMONIA halfway (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 ([facility]) Medical non-compliance 07/18/2023 Morbid obesity with body mass index (BMI) of 40.0 to 49.9 ([facility]) 07/18/2023 Neuropathy, diabetic ([facility]) 07/18/2023 SANTO (obstructive sleep apnea) 07/18/2023 Osteoporosis ([facility]) 07/18/2023 Seasonal allergies 07/18/2023 Tobacco user 07/18/2023 Type 2 diabetes mellitus with complication, without long-term current use of insulin ([facility]) 07/18/2023 Urge and stress incontinence 07/18/2023 Vitamin [...] hyperglycemia, with long-term current use of insulin ([facility]) - POCT glucose manually resulted - [...] the patient Vitamin D deficiency Primary hypertension ([facility]) To follow with her PCP Hyperlipemia, mixed ([facility]) Continue with statin Crestor 5 mg once a day Insulin long-term use ([facility]) Class 1 obesity due to excess calories without serious comorbidity with body mass index (BMI) of 33.0 to 33.9 in adult Follow up in about 3 months (around 07/22/2024). documented in this encounter [facility] 04-09-2024 Telephone encounter Note I would like Denae Dior to be enrolled in [facility] if her insurance allows She is now living on her own, [place] She has not been to see Dr Allison for some time, he is the one to manage her DM, recent A1c is 10.4% [place] [facility] 04-09-2024 Miscellaneous Notes I would like Denae Dior to be enrolled in [facility] if her insurance allows She is now living on her own, is [place]. She has not been to see Dr Allison for some time, he is the one to manage her DM, recent A1c is 10.4% [place] documented in this encounter [facility] 03-18-2024 Telephone encounter Note Contact provider this morning, she is now starting to cough up yellow mucus and worsening in symtpoms, no fever, no NVD Will send in atb Also needs humidification for her oxygen She is instructed if atb does not help will need fu apppt [place] [facility] 03-18-2024 Miscellaneous Notes Contact provider this morning, she is now starting to cough up yellow mucus and worsening in symtpoms, no fever, no NVD Will send in atb Also needs humidification for her oxygen She is instructed if atb does not help will need fu apppt [place] documented in this encounter [facility] 03-11-2024 History of Presen t illness Narrative Associated Problem(s): Type 2 diabetes mellitus without complication, with long-term current use of insulin ([facility]) Phone number given for [...] D-3) 2,000 Units, Oral, Daily Continuous Glucose Strategic Intelligence Officer (FreeStyle Julisa 2 [place]) device Continuous Glucose Sensor (FreeStyle Julisa 2 [...] day (morning and mid-day) Sure Comfort Pen [place] 32G X 4 MM misc 1 each, [...] Medical History: Diagnosis Date Anxiety and depression ([facility]) 07/18/2023 Atrial fibrillation ([facility]) 07/18/2023 COPD mixed type ([facility]) 05/23/2023 Drug-induced acute pancreatitis 07/18/2023 Edema of extremities 07/18/2023 GERD (gastroesophageal reflux disease) 07/18/2023 HLD (hyperlipidemia) ([facility]) 07/18/2023 Medical non-compliance 07/18/2023 Morbid obesity with body mass index (BMI) of 40.0 to 49.9 ([facility]) 07/18/2023 Neuropathy, diabetic ([facility]) 07/18/2023 SANTO (obstructive sleep apnea) 07/18/2023 Osteoporosis ([facility]) 07/18/2023 Seasonal allergies 07/18/2023 Tobacco user 07/18/2023 Type 2 diabetes mellitus with complication, without long-term current use of insulin ([facility]) 07/18/2023 Urge and stress incontinence 07/18/2023 Vitamin [...] complication, with long-term current use of insulin ([facility]) Phone number given for pt to contact Dr Allison office Relevant Orders Ambulatory referral to [facility] Viral upper respiratory tract infection - Primary Do not see any s/s bacterial infection, lungs clear Did in office Flu A/B/Covid: negative Fluids, rest, monitor for s/s worsening if so call office documented in this encounter [facility] 02-25-2024 History of Presen t illness Narrative [...] 25mg BID Her new med supply from [facility] is 25mg BID This may be related to her dizziness Will obtain notes from [facility], I did call medical records and left voice mail to send all ER notes for recent visit Associated Problem(s): Type 2 diabetes mellitus without complication, with long-term current use of insulin ([facility]) Continue current dosing of insulin at [...] fu appt with them Was in the [facility] er yesterday for dizziness: room spinning, [...] D-3) 2,000 Units, Oral, Daily Continuous Glucose Strategic Intelligence Officer (FreeStyle Julisa 2 [place]) device Continuous Glucose Sensor (FreeStyle Julisa 2 [...] day (morning and mid-day) Sure Comfort Pen [place] 32G X 4 MM misc 1 each, [...] Medical History: Diagnosis Date Anxiety and depression ([facility]) 07/18/2023 Atrial fibrillation ([facility]) 07/18/2023 COPD mixed type ([facility]) 05/23/2023 Drug-induced acute pancreatitis 07/18/2023 Edema of extremities 07/18/2023 GERD (gastroesophageal reflux disease) 07/18/2023 HLD (hyperlipidemia) ([facility]) 07/18/2023 Medical non-compliance 07/18/2023 Morbid obesity with body mass index (BMI) of 40.0 to 49.9 ([facility]) 07/18/2023 Neuropathy, diabetic ([facility]) 07/18/2023 SANTO (obstructive sleep apnea) 07/18/2023 Osteoporosis ([facility]) 07/18/2023 Seasonal allergies 07/18/2023 Tobacco user 07/18/2023 Type 2 diabetes mellitus with complication, without long-term current use of insulin ([facility]) 07/18/2023 Urge and stress incontinence 07/18/2023 Vitamin [...] complication, with long-term current use of insulin ([facility]) Continue current dosing of insulin at [...] 25mg BID Her new med supply from [facility] is 25mg BID This may be related to her dizziness Will obtain notes from [facility], I did call medical records and left voice mail to send all ER notes for recent visit Open wound of buttock - Primary Recommend cleansing area with soap and water 3-4 times daily and apply zinc oxide cream Increase protein intake Fu in 2 weeks for recheck No atb needed at this time documented in this encounter [facility] 02-17-2024 History of Presen t illness Narrative Associated Problem(s): Dizziness and giddiness Could be still with getting stronger, also will check labs to r/o anemia or elyte abnormals Fu in 3 weeks Continue with home OT/PT Associated Problem(s): Type 2 diabetes mellitus without complication, with long-term current use of insulin ([facility]) Continue current dosing of insulin at BID And sliding scale insulin Associated Problem(s): Edema of extremities Stable at this time Associated Problem(s): Primary hypertension ([facility]) Stable at this time Associated Problem(s): Atrial fibrillation (CMS/HCC) Cont current meds and anticoagulation BS 200 or less Images from the original note were not included. Denae Dior is a 63 y.o. female presents with chief complaint of No chief complaint on file. HPI: Recent discharge from hospital and longterm for weakness and inability to care for [...] D-3) 2,000 Units, Oral, Daily Continuous Glucose Strategic Intelligence Officer (FreeStyle Julisa 2 [place]) device Continuous Glucose Sensor (FreeStyle Julisa 2 [...] Oral, 2 times daily Sure Comfort Pen [place] 32G X 4 MM misc 1 each, [...] Medical History: Diagnosis Date Anxiety and depression ([facility]) 07/18/2023 Atrial fibrillation ([facility]) 07/18/2023 COPD mixed type ([facility]) 05/23/2023 Drug-induced acute pancreatitis 07/18/2023 Edema of extremities 07/18/2023 GERD (gastroesophageal reflux disease) 07/18/2023 HLD (hyperlipidemia) ([facility]) 07/18/2023 Medical non-compliance 07/18/2023 Morbid obesity with body mass index (BMI) of 40.0 to 49.9 ([facility]) 07/18/2023 Neuropathy, diabetic ([facility]) 07/18/2023 SANTO (obstructive sleep apnea) 07/18/2023 Osteoporosis ([facility]) 07/18/2023 Seasonal allergies 07/18/2023 Tobacco user 07/18/2023 Type 2 diabetes mellitus with complication, without long-term current use of insulin ([facility]) 07/18/2023 Urge and stress incontinence 07/18/2023 Vitamin [...] microscopic (clean catch) documented in this encounter [facility] 07-18-2023 History of Presen t illness Narrative [...] neuropathy, with long-term current use of insulin ([facility]) Non compliant with follow up with Endo [...] 2 puffs, Inhalation, Daily Sure Comfort Pen [place] 32G X 4 MM misc 1 each, [...] Medical History: Diagnosis Date Anxiety and depression ([facility]) 07/18/2023 Atrial fibrillation ([facility]) 07/18/2023 COPD mixed type ([facility]) 05/23/2023 Drug-induced acute pancreatitis 07/18/2023 Edema of extremities 07/18/2023 GERD (gastroesophageal reflux disease) 07/18/2023 HLD (hyperlipidemia) ([facility]) 07/18/2023 Medical non-compliance 07/18/2023 Morbid obesity with body mass index (BMI) of 40.0 to 49.9 ([facility]) 07/18/2023 Neuropathy, diabetic ([facility]) 07/18/2023 SANTO (obstructive sleep apnea) 07/18/2023 Osteoporosis ([facility]) 07/18/2023 Seasonal allergies 07/18/2023 Tobacco user 07/18/2023 Type 2 diabetes mellitus with complication, without long-term current use of insulin ([facility]) 07/18/2023 Urge and stress incontinence 07/18/2023 Vitamin [...] microscopic (clean catch) Hemoglobin A1c HLD (hyperlipidemia) ([facility]) Relevant Orders Lipid panel Comprehensive metabolic panel Anxiety and depression ([facility]) Stable at this time Encounter for screening mammogram for malignant neoplasm of breast Relevant Orders Bilateral screening mammogram COVID Recent hospitalization for this, appears to be doing quite well Open wound No s/s infection, recommend using diaper barrier ointment on this documented in this encounter [facility] 06-07-2022 Note PROCEDURE: XR FOOT L T [...] by: ROBERT HART Date: 2022-06-07 08:43 [facility] Evaluation note Diagnosis Primary hypertension (CMS/HCC)- Primary [...] mass index (BMI) of 40.0 to 49.9 ([facility]) documented in this encounter [facility]* Diagnosis Viral upper respiratory tract infection- Primary Acute upper respiratory infections of unspecified site Tobacco user Tobacco use disorder Open wound Open wound(s) (multiple) of unspecified site(s), without mention of complication Obesity (BMI 30-39.9) Type 2 diabetes mellitus without complication, with long-term current use of insulin ([facility]) documented in this encounter [facility] Healthcare[facility] note* Diagnosis Primary hypertension ([facility])- Primary Unspecified essential hypertension Type 2 diabetes mellitus with diabetic neuropathy, with long-term current use of insulin ([facility]) Gastroesophageal reflux disease, unspecified whether esophagitis present Vitamin D deficiency Type 2 diabetes mellitus with complication, without long-term current use of insulin ([facility]) Mixed hyperlipidemia ([facility]) Mixed hyperlipidemia Encounter for screening mammogram for malignant neoplasm of breast SANTO (obstructive sleep apnea) Obstructive sleep apnea (adult) (pediatric) COPD mixed type ([facility]) Anxiety and depression ([facility]) COVID Open wound Open wound(s) (multiple) of unspecified site(s), without mention of complication Morbid obesity with body mass index (BMI) of 40.0 to 49.9 ([facility]) COPD mixed type ([facility])- Primary Dysuria Atrial fibrillation, unspecified type ([facility]) Gastroesophageal reflux disease, unspecified whether esophagitis present Type 2 diabetes mellitus with complication, without long-term current use of insulin ([facility]) Obesity (BMI 30-39.9) Tobacco user Tobacco use disorder Anxiety and depression ([facility]) Dermatitis Contact dermatitis and other eczema, due to unspecified cause Anxiety and depression ([facility])- Primary Obesity (BMI 30-39.9) Type 2 diabetes mellitus with complication, without long-term current use of insulin ([facility]) Medical non-compliance Tobacco user Tobacco use disorder Type 2 diabetes mellitus with hyperglycemia ([facility])- Primary Primary hypertension ([facility]) Unspecified essential hypertension Edema of extremities Edema Type 2 diabetes mellitus without complication, with long-term current use of insulin ([facility]) Vitamin D deficiency Tobacco user Tobacco use disorder Dizziness and giddiness Atrial fibrillation, unspecified type ([facility]) COPD mixed type ([facility]) Open wound of buttock, unspecified laterality, initial encounter- Primary Type 2 diabetes mellitus without complication, with long-term current use of insulin ([facility]) Obesity (BMI 30-39.9) Dizziness and giddiness Viral upper respiratory tract infection- Primary Acute upper respiratory infections of unspecified site Tobacco user Tobacco use disorder Open wound Open wound(s) (multiple) of unspecified site(s), without mention of complication Obesity (BMI 30-39.9) Type 2 diabetes mellitus without complication, with long-term current use of insulin ([facility]) Primary hypertension ([facility])- Primary Unspecified essential hypertension Edema of extremities Edema documented in this encounter [facility]* Diagnosis Primary hypertension ([facility])- Primary Unspecified essential hypertension Type 2 diabetes mellitus with diabetic neuropathy, with long-term current use of insulin ([facility]) Gastroesophageal reflux disease, unspecified whether esophagitis present Vitamin D deficiency Type 2 diabetes mellitus with complication, without long-term current use of insulin ([facility]) Mixed hyperlipidemia ([facility]) Mixed hyperlipidemia Encounter for screening mammogram for malignant neoplasm of breast SANTO (obstructive sleep apnea) Obstructive sleep apnea (adult) (pediatric) COPD mixed type ([facility]) Anxiety and depression ([facility]) COVID Open wound Open wound(s) (multiple) of unspecified site(s), without mention of complication Morbid obesity with body mass index (BMI) of 40.0 to 49.9 ([facility]) COPD mixed type ([facility])- Primary Dysuria Atrial fibrillation, unspecified type ([facility]) Gastroesophageal reflux disease, unspecified whether esophagitis present Type 2 diabetes mellitus with complication, without long-term current use of insulin ([facility]) Obesity (BMI 30-39.9) Tobacco user Tobacco use disorder Anxiety and depression ([facility]) Dermatitis Contact dermatitis and other eczema, due to unspecified cause Anxiety and depression ([facility])- Primary Obesity (BMI 30-39.9) Type 2 diabetes mellitus with complication, without long-term current use of insulin ([facility]) Medical non-compliance Tobacco user Tobacco use disorder Type 2 diabetes mellitus with hyperglycemia ([facility])- Primary Primary hypertension ([facility]) Unspecified essential hypertension Edema of extremities Edema Type 2 diabetes mellitus without complication, with long-term current use of insulin ([facility]) Vitamin D deficiency Tobacco user Tobacco use disorder Dizziness and giddiness Atrial fibrillation, unspecified type ([facility]) COPD mixed type ([facility]) Open wound of buttock, unspecified laterality, initial encounter- Primary Type 2 diabetes mellitus without complication, with long-term current use of insulin ([facility]) Obesity (BMI 30-39.9) Dizziness and giddiness Viral upper respiratory tract infection- Primary Acute upper respiratory infections of unspecified site Tobacco user Tobacco use disorder Open wound Open wound(s) (multiple) of unspecified site(s), without mention of complication Obesity (BMI 30-39.9) Type 2 diabetes mellitus without complication, with long-term current use of insulin ([facility]) COPD mixed type ([facility])- Primary URI, acute Acute upper respiratory infections of unspecified site documented in this encounter [facility]* Diagnosis Primary hypertension ([facility])- Primary Unspecified essential hypertension Type 2 diabetes mellitus with diabetic neuropathy, with long-term current use of insulin ([facility]) Gastroesophageal reflux disease, unspecified whether esophagitis present Vitamin D deficiency Type 2 diabetes mellitus with complication, without long-term current use of insulin ([facility]) Mixed hyperlipidemia ([facility]) Mixed hyperlipidemia Encounter for screening mammogram for malignant neoplasm of breast SANTO (obstructive sleep apnea) Obstructive sleep apnea (adult) (pediatric) COPD mixed type ([facility]) Anxiety and depression ([facility]) COVID Open wound Open wound(s) (multiple) of unspecified site(s), without mention of complication Morbid obesity with body mass index (BMI) of 40.0 to 49.9 ([facility]) COPD mixed type (CMS/HCC)- Primary Dysuria Atrial fibrillation, unspecified type ([facility]) Gastroesophageal reflux disease, unspecified whether esophagitis present Type 2 diabetes mellitus with complication, without long-term current use of insulin ([facility]) Obesity (BMI 30-39.9) Tobacco user Tobacco use disorder Anxiety and depression ([facility]) Dermatitis Contact dermatitis and other eczema, due to unspecified cause Anxiety and depression ([facility])- Primary Obesity (BMI 30-39.9) Type 2 diabetes mellitus with complication, without long-term current use of insulin ([facility]) Medical non-compliance Tobacco user Tobacco use disorder Type 2 diabetes mellitus with hyperglycemia ([facility])- Primary Primary hypertension ([facility]) Unspecified essential hypertension Edema of extremities Edema Type 2 diabetes mellitus without complication, with long-term current use of insulin ([facility]) Vitamin D deficiency Tobacco user Tobacco use disorder Dizziness and giddiness Atrial fibrillation, unspecified type ([facility]) COPD mixed type ([facility]) Open wound of buttock, unspecified laterality, initial encounter- Primary Type 2 diabetes mellitus without complication, with long-term current use of insulin ([facility]) Obesity (BMI 30-39.9) Dizziness and giddiness Viral upper respiratory tract infection- Primary Acute upper respiratory infections of unspecified site Tobacco user Tobacco use disorder Open wound Open wound(s) (multiple) of unspecified site(s), without mention of complication Obesity (BMI 30-39.9) Type 2 diabetes mellitus without complication, with long-term current use of insulin ([facility]) COPD mixed type ([facility]) URI, acute Acute upper respiratory infections of unspecified site documented in this encounter [facility] HealthcareEvaluation note* Diagnosis Primary hypertension ([facility])- Primary Unspecified essential hypertension Type 2 diabetes mellitus with diabetic neuropathy, with long-term current use of insulin ([facility]) Gastroesophageal reflux disease, unspecified whether esophagitis present Vitamin D deficiency Type 2 diabetes mellitus with complication, without long-term current use of insulin ([facility]) Mixed hyperlipidemia ([facility]) Mixed hyperlipidemia Encounter for screening mammogram for malignant neoplasm of breast SANTO (obstructive sleep apnea) Obstructive sleep apnea (adult) (pediatric) COPD mixed type ([facility]) Anxiety and depression ([facility]) COVID Open wound Open wound(s) (multiple) of unspecified site(s), without mention of complication Morbid obesity with body mass index (BMI) of 40.0 to 49.9 ([facility]) COPD mixed type ([facility])- Primary Dysuria Atrial fibrillation, unspecified type ([facility]) Gastroesophageal reflux disease, unspecified whether esophagitis present Type 2 diabetes mellitus with complication, without long-term current use of insulin ([facility]) Obesity (BMI 30-39.9) Tobacco user Tobacco use disorder Anxiety and depression ([facility]) Dermatitis Contact dermatitis and other eczema, due to unspecified cause Anxiety and depression ([facility])- Primary Obesity (BMI 30-39.9) Type 2 diabetes mellitus with complication, without long-term current use of insulin ([facility]) Medical non-compliance Tobacco user Tobacco use disorder Type 2 diabetes mellitus with hyperglycemia ([facility])- Primary Primary hypertension ([facility]) Unspecified essential hypertension Edema of extremities Edema Type 2 diabetes mellitus without complication, with long-term current use of insulin ([facility]) Vitamin D deficiency Tobacco user Tobacco use disorder Dizziness and giddiness Atrial fibrillation, unspecified type ([facility]) COPD mixed type ([facility]) Open wound of buttock, unspecified laterality, initial encounter- Primary Type 2 diabetes mellitus without complication, with long-term current use of insulin ([facility]) Obesity (BMI 30-39.9) Dizziness and giddiness Viral upper respiratory tract infection- Primary Acute upper respiratory infections of unspecified site Tobacco user Tobacco use disorder Open wound Open wound(s) (multiple) of unspecified site(s), without mention of complication Obesity (BMI 30-39.9) Type 2 diabetes mellitus without complication, with long-term current use of insulin ([facility]) Encounter for wellness examination- Primary Osteoporosis, unspecified osteoporosis type, unspecified pathological fracture presence ([facility]) Open wound of buttock, unspecified laterality, initial encounter Type 2 diabetes mellitus without complication, with long-term current use of insulin ([facility]) Obesity (BMI 30-39.9) Tobacco user Tobacco use disorder Anxiety and depression ([facility]) Type 2 diabetes mellitus with diabetic neuropathy, with long-term current use of insulin ([facility]) COPD mixed type ([facility]) Diabetic polyneuropathy associated with type 2 diabetes mellitus ([facility]) Gastroesophageal reflux disease, unspecified whether esophagitis present Mixed hyperlipidemia ([facility]) Mixed hyperlipidemia Primary hypertension ([facility]) Unspecified essential hypertension Edema of extremities Edema Lung nodule, multiple Lymphadenopathy, generalized Vitamin D deficiency Oxygen dependent Dependence on supplemental oxygen Community acquired pneumonia, unspecified laterality documented in this encounter [facility] HealthcareEvaluation note* Diagnosis Primary hypertension ([facility])- Primary Unspecified essential hypertension Type 2 diabetes mellitus with diabetic neuropathy, with long-term current use of insulin ([facility]) Gastroesophageal reflux disease, unspecified whether esophagitis present Vitamin D deficiency Type 2 diabetes mellitus with complication, without long-term current use of insulin ([facility]) Mixed hyperlipidemia ([facility]) Mixed hyperlipidemia Encounter for screening mammogram for malignant neoplasm of breast SANTO (obstructive sleep apnea) Obstructive sleep apnea (adult) (pediatric) COPD mixed type ([facility]) Anxiety and depression ([facility]) COVID Open wound Open wound(s) (multiple) of unspecified site(s), without mention of complication Morbid obesity with body mass index (BMI) of 40.0 to 49.9 ([facility]) COPD mixed type ([facility])- Primary Dysuria Atrial fibrillation, unspecified type ([facility]) Gastroesophageal reflux disease, unspecified whether esophagitis present Type 2 diabetes mellitus with complication, without long-term current use of insulin ([facility]) Obesity (BMI 30-39.9) Tobacco user Tobacco use disorder Anxiety and depression ([facility]) Dermatitis Contact dermatitis and other eczema, due to unspecified cause Anxiety and depression ([facility])- Primary Obesity (BMI 30-39.9) Type 2 diabetes mellitus with complication, without long-term current use of insulin ([facility]) Medical non-compliance Tobacco user Tobacco use disorder Type 2 diabetes mellitus with hyperglycemia ([facility])- Primary Primary hypertension ([facility]) Unspecified essential hypertension Edema of extremities Edema Type 2 diabetes mellitus without complication, with long-term current use of insulin ([facility]) Vitamin D deficiency Tobacco user Tobacco use disorder Dizziness and giddiness Atrial fibrillation, unspecified type ([facility]) COPD mixed type ([facility]) Open wound of buttock, unspecified laterality, initial encounter- Primary Type 2 diabetes mellitus without complication, with long-term current use of insulin ([facility]) Obesity (BMI 30-39.9) Dizziness and giddiness Viral upper respiratory tract infection- Primary Acute upper respiratory infections of unspecified site Tobacco user Tobacco use disorder Open wound Open wound(s) (multiple) of unspecified site(s), without mention of complication Obesity (BMI 30-39.9) Type 2 diabetes mellitus without complication, with long-term current use of insulin ([facility]) Encounter for wellness examination- Primary Osteoporosis, unspecified osteoporosis type, unspecified pathological fracture presence ([facility]) Open wound of buttock, unspecified laterality, initial encounter Type 2 diabetes mellitus without complication, with long-term current use of insulin ([facility]) Obesity (BMI 30-39.9) Tobacco user Tobacco use disorder Anxiety and depression ([facility]) Type 2 diabetes mellitus with diabetic neuropathy, with long-term current use of insulin ([facility]) COPD mixed type ([facility]) Diabetic polyneuropathy associated with type 2 diabetes mellitus ([facility]) Gastroesophageal reflux disease, unspecified whether esophagitis present Mixed hyperlipidemia ([facility]) Mixed hyperlipidemia Primary hypertension ([facility]) Unspecified essential hypertension Edema of extremities Edema Lung nodule, multiple Lymphadenopathy, generalized Vitamin D deficiency Oxygen dependent Dependence on supplemental oxygen Community acquired pneumonia, unspecified laterality COPD mixed type ([facility])- Primary SANTO (obstructive sleep apnea) Obstructive sleep apnea (adult) (pediatric) Lung nodule, multiple Community acquired pneumonia, unspecified laterality Primary hypertension ([facility]) Unspecified essential hypertension Atrial fibrillation, unspecified type ([facility]) Type 2 diabetes mellitus without complication, with long-term current use of insulin ([facility]) Tobacco user Tobacco use disorder Needs flu shot Need for prophylactic vaccination and inoculation against influenza documented in this encounter [facility] HealthcareEvaluation note* Diagnosis Type 2 diabetes mellitus with hyperglycemia ([facility])- Primary Primary hypertension ([facility]) Unspecified essential hypertension Edema of extremities Edema Type 2 diabetes mellitus without complication, with long-term current use of insulin ([facility]) Vitamin D deficiency Tobacco user Tobacco use disorder Dizziness and giddiness Atrial fibrillation, unspecified type ([facility]) COPD mixed type ([facility]) documented in this encounter [facility] HealthcareEvaluation note* Diagnosis Primary hypertension ([facility])- Primary Unspecified essential hypertension Type 2 diabetes mellitus with diabetic neuropathy, with long-term current use of insulin ([facility]) Gastroesophageal reflux disease, unspecified whether esophagitis present Vitamin D deficiency Type 2 diabetes mellitus with complication, without long-term current use of insulin ([facility]) Mixed hyperlipidemia ([facility]) Mixed hyperlipidemia Encounter for screening mammogram for malignant neoplasm of breast SANTO (obstructive sleep apnea) Obstructive sleep apnea (adult) (pediatric) COPD mixed type ([facility]) Anxiety and depression ([facility]) COVID Open wound Open wound(s) (multiple) of unspecified site(s), without mention of complication Morbid obesity with body mass index (BMI) of 40.0 to 49.9 ([facility]) COPD mixed type ([facility])- Primary Dysuria Atrial fibrillation, unspecified type ([facility]) Gastroesophageal reflux disease, unspecified whether esophagitis present Type 2 diabetes mellitus with complication, without long-term current use of insulin ([facility]) Obesity (BMI 30-39.9) Tobacco user Tobacco use disorder Anxiety and depression ([facility]) Dermatitis Contact dermatitis and other eczema, due to unspecified cause Anxiety and depression ([facility])- Primary Obesity (BMI 30-39.9) Type 2 diabetes mellitus with complication, without long-term current use of insulin ([facility]) Medical non-compliance Tobacco user Tobacco use disorder Type 2 diabetes mellitus with hyperglycemia ([facility])- Primary Primary hypertension ([facility]) Unspecified essential hypertension Edema of extremities Edema Type 2 diabetes mellitus without complication, with long-term current use of insulin ([facility]) Vitamin D deficiency Tobacco user Tobacco use disorder Dizziness and giddiness Atrial fibrillation, unspecified type ([facility]) COPD mixed type ([facility]) Open wound of buttock, unspecified laterality, initial encounter- Primary Type 2 diabetes mellitus without complication, with long-term current use of insulin ([facility]) Obesity (BMI 30-39.9) Dizziness and giddiness Viral upper respiratory tract infection- Primary Acute upper respiratory infections of unspecified site Tobacco user Tobacco use disorder Open wound Open wound(s) (multiple) of unspecified site(s), without mention of complication Obesity (BMI 30-39.9) Type 2 diabetes mellitus without complication, with long-term current use of insulin ([facility]) Encounter for wellness examination- Primary Osteoporosis, unspecified osteoporosis type, unspecified pathological fracture presence ([facility]) Open wound of buttock, unspecified laterality, initial encounter Type 2 diabetes mellitus without complication, with long-term current use of insulin ([facility]) Obesity (BMI 30-39.9) Tobacco user Tobacco use disorder Anxiety and depression ([facility]) Type 2 diabetes mellitus with diabetic neuropathy, with long-term current use of insulin ([facility]) COPD mixed type ([facility]) Diabetic polyneuropathy associated with type 2 diabetes mellitus ([facility]) Gastroesophageal reflux disease, unspecified whether esophagitis present Mixed hyperlipidemia ([facility]) Mixed hyperlipidemia Primary hypertension ([facility]) Unspecified essential hypertension Edema of extremities Edema Lung nodule, multiple Lymphadenopathy, generalized Vitamin D deficiency Oxygen dependent Dependence on supplemental oxygen Community acquired pneumonia, unspecified laterality COPD mixed type ([facility])- Primary SANTO (obstructive sleep apnea) Obstructive sleep apnea (adult) (pediatric) Lung nodule, multiple Community acquired pneumonia, unspecified laterality Primary hypertension ([facility]) Unspecified essential hypertension Atrial fibrillation, unspecified type ([facility]) Type 2 diabetes mellitus without complication, with long-term current use of insulin ([facility]) Tobacco user Tobacco use disorder Needs flu shot Need for prophylactic vaccination and inoculation against influenza Lung nodule, multiple- Primary documented in this encounter [facility] HealthcareEvaluation [facility]* Diagnosis Primary hypertension ([facility])- Primary Unspecified essential hypertension Type 2 diabetes mellitus with diabetic neuropathy, with long-term current use of insulin ([facility]) Gastroesophageal reflux disease, unspecified whether esophagitis present Vitamin D deficiency Type 2 diabetes mellitus with complication, without long-term current use of insulin ([facility]) Mixed hyperlipidemia ([facility]) Mixed hyperlipidemia Encounter for screening mammogram for malignant neoplasm of breast SANTO (obstructive sleep apnea) Obstructive sleep apnea (adult) (pediatric) COPD mixed type ([facility]) Anxiety and depression ([facility]) COVID Open wound Open wound(s) (multiple) of unspecified site(s), without mention of complication Morbid obesity with body mass index (BMI) of 40.0 to 49.9 ([facility]) COPD mixed type ([facility])- Primary Dysuria Atrial fibrillation, unspecified type ([facility]) Gastroesophageal reflux disease, unspecified whether esophagitis present Type 2 diabetes mellitus with complication, without long-term current use of insulin ([facility]) Obesity (BMI 30-39.9) Tobacco user Tobacco use disorder Anxiety and depression ([facility]) Dermatitis Contact dermatitis and other eczema, due to unspecified cause Anxiety and depression ([facility])- Primary Obesity (BMI 30-39.9) Type 2 diabetes mellitus with complication, without long-term current use of insulin ([facility]) Medical non-compliance Tobacco user Tobacco use disorder Type 2 diabetes mellitus with hyperglycemia ([facility])- Primary Primary hypertension ([facility]) Unspecified essential hypertension Edema of extremities Edema Type 2 diabetes mellitus without complication, with long-term current use of insulin ([facility]) Vitamin D deficiency Tobacco user Tobacco use disorder Dizziness and giddiness Atrial fibrillation, unspecified type (CMS/HCC) COPD mixed type ([facility]) Open wound of buttock, unspecified laterality, initial encounter- Primary Type 2 diabetes mellitus without complication, with long-term current use of insulin ([facility]) Obesity (BMI 30-39.9) Dizziness and giddiness Viral upper respiratory tract infection- Primary Acute upper respiratory infections of unspecified site Tobacco user Tobacco use disorder Open wound Open wound(s) (multiple) of unspecified site(s), without mention of complication Obesity (BMI 30-39.9) Type 2 diabetes mellitus without complication, with long-term current use of insulin ([facility]) Encounter for wellness examination- Primary Osteoporosis, unspecified osteoporosis type, unspecified pathological fracture presence ([facility]) Open wound of buttock, unspecified laterality, initial encounter Type 2 diabetes mellitus without complication, with long-term current use of insulin ([facility]) Obesity (BMI 30-39.9) Tobacco user Tobacco use disorder Anxiety and depression ([facility]) Type 2 diabetes mellitus with diabetic neuropathy, with long-term current use of insulin ([facility]) COPD mixed type ([facility]) Diabetic polyneuropathy associated with type 2 diabetes mellitus ([facility]) Gastroesophageal reflux disease, unspecified whether esophagitis present Mixed hyperlipidemia ([facility]) Mixed hyperlipidemia Primary hypertension ([facility]) Unspecified essential hypertension Edema of extremities Edema Lung nodule, multiple Lymphadenopathy, generalized Vitamin D deficiency Oxygen dependent Dependence on supplemental oxygen Community acquired pneumonia, unspecified laterality COPD mixed type ([facility])- Primary SANTO (obstructive sleep apnea) Obstructive sleep apnea (adult) (pediatric) Lung nodule, multiple Community acquired pneumonia, unspecified laterality Primary hypertension ([facility]) Unspecified essential hypertension Atrial fibrillation, unspecified type ([facility]) Type 2 diabetes mellitus without complication, with long-term current use of insulin ([facility]) Tobacco user Tobacco use disorder Needs flu shot Need for prophylactic vaccination and inoculation against influenza Right wrist pain- Primary Pain in joint, forearm Obesity (BMI 30-39.9) documented in this encounter [facility] HealthcareEvaluation note* Diagnosis Primary hypertension ([facility])- Primary Unspecified essential hypertension Type 2 diabetes mellitus with diabetic neuropathy, with long-term current use of insulin ([facility]) Gastroesophageal reflux disease, unspecified whether esophagitis present Vitamin D deficiency Type 2 diabetes mellitus with complication, without long-term current use of insulin ([facility]) Mixed hyperlipidemia ([facility]) Mixed hyperlipidemia Encounter for screening mammogram for malignant neoplasm of breast SANTO (obstructive sleep apnea) Obstructive sleep apnea (adult) (pediatric) COPD mixed type ([facility]) Anxiety and depression ([facility]) COVID Open wound Open wound(s) (multiple) of unspecified site(s), without mention of complication Morbid obesity with body mass index (BMI) of 40.0 to 49.9 ([facility]) COPD mixed type ([facility])- Primary Dysuria Atrial fibrillation, unspecified type ([facility]) Gastroesophageal reflux disease, unspecified whether esophagitis present Type 2 diabetes mellitus with complication, without long-term current use of insulin ([facility]) Obesity (BMI 30-39.9) Tobacco user Tobacco use disorder Anxiety and depression ([facility]) Dermatitis Contact dermatitis and other eczema, due to unspecified cause Anxiety and depression ([facility])- Primary Obesity (BMI 30-39.9) Type 2 diabetes mellitus with complication, without long-term current use of insulin ([facility]) Medical non-compliance Tobacco user Tobacco use disorder Type 2 diabetes mellitus with hyperglycemia ([facility])- Primary Primary hypertension ([facility]) Unspecified essential hypertension Edema of extremities Edema Type 2 diabetes mellitus without complication, with long-term current use of insulin ([facility]) Vitamin D deficiency Tobacco user Tobacco use disorder Dizziness and giddiness Atrial fibrillation, unspecified type ([facility]) COPD mixed type ([facility]) Open wound of buttock, unspecified laterality, initial encounter- Primary Type 2 diabetes mellitus without complication, with long-term current use of insulin ([facility]) Obesity (BMI 30-39.9) Dizziness and giddiness Viral upper respiratory tract infection- Primary Acute upper respiratory infections of unspecified site Tobacco user Tobacco use disorder Open wound Open wound(s) (multiple) of unspecified site(s), without mention of complication Obesity (BMI 30-39.9) Type 2 diabetes mellitus without complication, with long-term current use of insulin ([facility]) Type 2 diabetes mellitus with hyperglycemia, with long-term current use of insulin ([facility])- Primary Encounter for dietary consultation Vitamin D deficiency Primary hypertension ([facility]) Unspecified essential hypertension Hyperlipemia, mixed ([facility]) Mixed hyperlipidemia Insulin long-term use ([facility]) Encounter for long-term (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 Class 1 obesity due to excess calories without serious comorbidity with body mass index (BMI) of 33.0 to 33.9 in adult documented in this encounter [facility] HealthcareEvaluation note* Diagnosis Open wound of buttock, unspecified laterality, initial encounter- Primary Type 2 diabetes mellitus without complication, with long-term current use of insulin ([facility]) Obesity (BMI 30-39.9) Dizziness and giddiness documented in this encounter [facility] HealthcareEvaluation note* Diagnosis Primary hypertension ([facility])- Primary Unspecified essential hypertension Type 2 diabetes mellitus with diabetic neuropathy, with long-term current use of insulin ([facility]) Gastroesophageal reflux disease, unspecified whether esophagitis present Vitamin D deficiency Type 2 diabetes mellitus with complication, without long-term current use of insulin ([facility]) Mixed hyperlipidemia ([facility]) Mixed hyperlipidemia Encounter for screening mammogram for malignant neoplasm of breast SANTO (obstructive sleep apnea) Obstructive sleep apnea (adult) (pediatric) COPD mixed type ([facility]) Anxiety and depression ([facility]) COVID Open wound Open wound(s) (multiple) of unspecified site(s), without mention of complication Morbid obesity with body mass index (BMI) of 40.0 to 49.9 ([facility]) COPD mixed type ([facility])- Primary Dysuria Atrial fibrillation, unspecified type ([facility]) Gastroesophageal reflux disease, unspecified whether esophagitis present Type 2 diabetes mellitus with complication, without long-term current use of insulin ([facility]) Obesity (BMI 30-39.9) Tobacco user Tobacco use disorder Anxiety and depression ([facility]) Dermatitis Contact dermatitis and other eczema, due to unspecified cause Anxiety and depression ([facility])- Primary Obesity (BMI 30-39.9) Type 2 diabetes mellitus with complication, without long-term current use of insulin ([facility]) Medical non-compliance Tobacco user Tobacco use disorder Type 2 diabetes mellitus with hyperglycemia ([facility])- Primary Primary hypertension ([facility]) Unspecified essential hypertension Edema of extremities Edema Type 2 diabetes mellitus without complication, with long-term current use of insulin ([facility]) Vitamin D deficiency Tobacco user Tobacco use disorder Dizziness and giddiness Atrial fibrillation, unspecified type ([facility]) COPD mixed type ([facility]) Open wound of buttock, unspecified laterality, initial encounter- Primary Type 2 diabetes mellitus without complication, with long-term current use of insulin ([facility]) Obesity (BMI 30-39.9) Dizziness and giddiness Viral upper respiratory tract infection- Primary Acute upper respiratory infections of unspecified site Tobacco user Tobacco use disorder Open wound Open wound(s) (multiple) of unspecified site(s), without mention of complication Obesity (BMI 30-39.9) Type 2 diabetes mellitus without complication, with long-term current use of insulin ([facility]) Encounter for wellness examination- Primary Osteoporosis, unspecified osteoporosis type, unspecified pathological fracture presence ([facility]) Open wound of buttock, unspecified laterality, initial encounter Type 2 diabetes mellitus without complication, with long-term current use of insulin ([facility]) Obesity (BMI 30-39.9) Tobacco user Tobacco use disorder Anxiety and depression ([facility]) Type 2 diabetes mellitus with diabetic neuropathy, with long-term current use of insulin ([facility]) COPD mixed type ([facility]) Diabetic polyneuropathy associated with type 2 diabetes mellitus ([facility]) Gastroesophageal reflux disease, unspecified whether esophagitis present Mixed hyperlipidemia ([facility]) Mixed hyperlipidemia Primary hypertension ([facility]) Unspecified essential hypertension Edema of extremities Edema Lung nodule, multiple Lymphadenopathy, generalized Vitamin D deficiency Oxygen dependent Dependence on supplemental oxygen Community acquired pneumonia, unspecified laterality COPD mixed type ([facility])- Primary SANTO (obstructive sleep apnea) Obstructive sleep apnea (adult) (pediatric) Lung nodule, multiple Community acquired pneumonia, unspecified laterality Primary hypertension ([facility]) Unspecified essential hypertension Atrial fibrillation, unspecified type ([facility]) Type 2 diabetes mellitus without complication, with long-term current use of insulin ([facility]) Tobacco user Tobacco use disorder Needs flu shot Need for prophylactic vaccination and inoculation against influenza Right wrist pain- Primary Pain in joint, forearm Obesity (BMI 30-39.9) Lung nodule, multiple- Primary COPD mixed type ([facility]) documented in this encounter [facility] HealthcareEvaluation note* Diagnosis Primary hypertension ([facility])- Primary Unspecified essential hypertension Type 2 diabetes mellitus with diabetic neuropathy, with long-term current use of insulin ([facility]) Gastroesophageal reflux disease, unspecified whether esophagitis present Vitamin D deficiency Type 2 diabetes mellitus with complication, without long-term current use of insulin ([facility]) Mixed hyperlipidemia ([facility]) Mixed hyperlipidemia Encounter for screening mammogram for malignant neoplasm of breast SANTO (obstructive sleep apnea) Obstructive sleep apnea (adult) (pediatric) COPD mixed type ([facility]) Anxiety and depression ([facility]) COVID Open wound Open wound(s) (multiple) of unspecified site(s), without mention of complication Morbid obesity with body mass index (BMI) of 40.0 to 49.9 ([facility]) COPD mixed type ([facility])- Primary Dysuria Atrial fibrillation, unspecified type ([facility]) Gastroesophageal reflux disease, unspecified whether esophagitis present Type 2 diabetes mellitus with complication, without long-term current use of insulin ([facility]) Obesity (BMI 30-39.9) Tobacco user Tobacco use disorder Anxiety and depression ([facility]) Dermatitis Contact dermatitis and other eczema, due to unspecified cause Anxiety and depression ([facility])- Primary Obesity (BMI 30-39.9) Type 2 diabetes mellitus with complication, without long-term current use of insulin ([facility]) Medical non-compliance Tobacco user Tobacco use disorder Type 2 diabetes mellitus with hyperglycemia ([facility])- Primary Primary hypertension ([facility]) Unspecified essential hypertension Edema of extremities Edema Type 2 diabetes mellitus without complication, with long-term current use of insulin ([facility]) Vitamin D deficiency Tobacco user Tobacco use disorder Dizziness and giddiness Atrial fibrillation, unspecified type ([facility]) COPD mixed type ([facility]) Open wound of buttock, unspecified laterality, initial encounter- Primary Type 2 diabetes mellitus without complication, with long-term current use of insulin ([facility]) Obesity (BMI 30-39.9) Dizziness and giddiness Viral upper respiratory tract infection- Primary Acute upper respiratory infections of unspecified site Tobacco user Tobacco use disorder Open wound Open wound(s) (multiple) of unspecified site(s), without mention of complication Obesity (BMI 30-39.9) Type 2 diabetes mellitus without complication, with long-term current use of insulin ([facility]) Encounter for wellness examination- Primary Osteoporosis, unspecified osteoporosis type, unspecified pathological fracture presence ([facility]) Open wound of buttock, unspecified laterality, initial encounter Type 2 diabetes mellitus without complication, with long-term current use of insulin ([facility]) Obesity (BMI 30-39.9) Tobacco user Tobacco use disorder Anxiety and depression ([facility]) Type 2 diabetes mellitus with diabetic neuropathy, with long-term current use of insulin ([facility]) COPD mixed type ([facility]) Diabetic polyneuropathy associated with type 2 diabetes mellitus ([facility]) Gastroesophageal reflux disease, unspecified whether esophagitis present Mixed hyperlipidemia (CMS/HCC) Mixed hyperlipidemia Primary hypertension ([facility]) Unspecified essential hypertension Edema of extremities Edema Lung nodule, multiple Lymphadenopathy, generalized Vitamin D deficiency Oxygen dependent Dependence on supplemental oxygen Community acquired pneumonia, unspecified laterality COPD mixed type (CMS/HCC)- Primary SANTO (obstructive sleep apnea) Obstructive sleep apnea (adult) (pediatric) Lung nodule, multiple Community acquired pneumonia, unspecified laterality Primary hypertension (CMS/HCC) Unspecified essential hypertension Atrial fibrillation, unspecified type ([facility]) Type 2 diabetes mellitus without complication, with long-term current use of insulin ([facility]) Tobacco user Tobacco use disorder Needs flu shot Need for prophylactic vaccination and inoculation against influenza Right wrist pain- Primary Pain in joint, forearm Obesity (BMI 30-39.9) 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 (CMS/[facility])- Primary documented in this encounter [facility]* Diagnosis Primary hypertension (CMS/[facility])- Primary Unspecified essential hypertension Type 2 diabetes mellitus with diabetic neuropathy, with long-term current use of insulin ([facility]) Gastroesophageal reflux disease, unspecified whether esophagitis present Vitamin D deficiency Type 2 diabetes mellitus with complication, without long-term current use of insulin ([facility]) Mixed hyperlipidemia (CMS/[facility]) Mixed hyperlipidemia Encounter for screening mammogram for malignant neoplasm of breast SANTO (obstructive sleep apnea) Obstructive sleep apnea (adult) (pediatric) COPD mixed type ([facility]) Anxiety and depression ([facility]) COVID Open wound Open wound(s) (multiple) of unspecified site(s), without mention of complication Morbid obesity with body mass index (BMI) of 40.0 to 49.9 ([facility]) COPD mixed type (CMS/HCC)- Primary Dysuria Atrial fibrillation, unspecified type (CMS/[facility]) Gastroesophageal reflux disease, unspecified whether esophagitis present Type 2 diabetes mellitus with complication, without long-term current use of insulin ([facility]) Obesity (BMI 30-39.9) Tobacco user Tobacco use disorder Anxiety and depression ([facility]) Dermatitis Contact dermatitis and other eczema, due to unspecified cause Anxiety and depression ([facility]/HCC)- Primary Obesity (BMI 30-39.9) Type 2 diabetes mellitus with complication, without long-term current use of insulin (CMS/[facility]) Medical non-compliance Tobacco user Tobacco use disorder Type 2 diabetes mellitus with hyperglycemia ([facility])- Primary Primary hypertension ([facility]) Unspecified essential hypertension Edema of extremities Edema Type 2 diabetes mellitus without complication, with long-term current use of insulin ([facility]) Vitamin D deficiency Tobacco user Tobacco use disorder Dizziness and giddiness Atrial fibrillation, unspecified type ([facility]) COPD mixed type ([facility]) Open wound of buttock, unspecified laterality, initial encounter- Primary Type 2 diabetes mellitus without complication, with long-term current use of insulin ([facility]) Obesity (BMI 30-39.9) Dizziness and giddiness Viral upper respiratory tract infection- Primary Acute upper respiratory infections of unspecified site Tobacco user Tobacco use disorder Open wound Open wound(s) (multiple) of unspecified site(s), without mention of complication Obesity (BMI 30-39.9) Type 2 diabetes mellitus without complication, with long-term current use of insulin ([facility]) Encounter for wellness examination- Primary Osteoporosis, unspecified osteoporosis type, unspecified pathological fracture presence ([facility]) Open wound of buttock, unspecified laterality, initial encounter Type 2 diabetes mellitus without complication, with long-term current use of insulin ([facility]) Obesity (BMI 30-39.9) Tobacco user Tobacco use disorder Anxiety and depression ([facility]) Type 2 diabetes mellitus with diabetic neuropathy, with long-term current use of insulin ([facility]) COPD mixed type ([facility]) Diabetic polyneuropathy associated with type 2 diabetes mellitus ([facility]) Gastroesophageal reflux disease, unspecified whether esophagitis present Mixed hyperlipidemia ([facility]) Mixed hyperlipidemia Primary hypertension ([facility]) Unspecified essential hypertension Edema of extremities Edema Lung nodule, multiple Lymphadenopathy, generalized Vitamin D deficiency Oxygen dependent Dependence on supplemental oxygen Community acquired pneumonia, unspecified laterality COPD mixed type ([facility])- Primary SANTO (obstructive sleep apnea) Obstructive sleep apnea (adult) (pediatric) Lung nodule, multiple Community acquired pneumonia, unspecified laterality Primary hypertension ([facility]) Unspecified essential hypertension Atrial fibrillation, unspecified type ([facility]) Type 2 diabetes mellitus without complication, with long-term current use of insulin ([facility]) Tobacco user Tobacco use disorder Needs flu shot Need for prophylactic vaccination and inoculation against influenza Right wrist pain- Primary Pain in joint, forearm Obesity (BMI 30-39.9) 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 ([facility])- Primary Oxygen dependent- Primary Dependence on supplemental oxygen COPD mixed type ([facility]) Obesity (BMI 30-39.9) COPD with acute exacerbation ([facility]) documented in this encounter [facility]* Diagnosis Primary hypertension ([facility])- Primary Unspecified essential hypertension Type 2 diabetes mellitus with diabetic neuropathy, with long-term current use of insulin ([facility]) Gastroesophageal reflux disease, unspecified whether esophagitis present Vitamin D deficiency Type 2 diabetes mellitus with complication, without long-term current use of insulin ([facility]) Mixed hyperlipidemia ([facility]) Mixed hyperlipidemia Encounter for screening mammogram for malignant neoplasm of breast SANTO (obstructive sleep apnea) Obstructive sleep apnea (adult) (pediatric) COPD mixed type ([facility]) Anxiety and depression ([facility]) COVID Open wound Open wound(s) (multiple) of unspecified site(s), without mention of complication Morbid obesity with body mass index (BMI) of 40.0 to 49.9 ([facility]) COPD mixed type ([facility])- Primary Dysuria Atrial fibrillation, unspecified type ([facility]) Gastroesophageal reflux disease, unspecified whether esophagitis present Type 2 diabetes mellitus with complication, without long-term current use of insulin ([facility]) Obesity (BMI 30-39.9) Tobacco user Tobacco use disorder Anxiety and depression ([facility]) Dermatitis Contact dermatitis and other eczema, due to unspecified cause Anxiety and depression ([facility])- Primary Obesity (BMI 30-39.9) Type 2 diabetes mellitus with complication, without long-term current use of insulin ([facility]) Medical non-compliance Tobacco user Tobacco use disorder Type 2 diabetes mellitus with hyperglycemia ([facility])- Primary Primary hypertension ([facility]) Unspecified essential hypertension Edema of extremities Edema Type 2 diabetes mellitus without complication, with long-term current use of insulin ([facility]) Vitamin D deficiency Tobacco user Tobacco use disorder Dizziness and giddiness Atrial fibrillation, unspecified type ([facility]) COPD mixed type ([facility]) Open wound of buttock, unspecified laterality, initial encounter- Primary Type 2 diabetes mellitus without complication, with long-term current use of insulin ([facility]) Obesity (BMI 30-39.9) Dizziness and giddiness Viral upper respiratory tract infection- Primary Acute upper respiratory infections of unspecified site Tobacco user Tobacco use disorder Open wound Open wound(s) (multiple) of unspecified site(s), without mention of complication Obesity (BMI 30-39.9) Type 2 diabetes mellitus without complication, with long-term current use of insulin ([facility]) Encounter for wellness examination- Primary Osteoporosis, unspecified osteoporosis type, unspecified pathological fracture presence ([facility]) Open wound of buttock, unspecified laterality, initial encounter Type 2 diabetes mellitus without complication, with long-term current use of insulin ([facility]) Obesity (BMI 30-39.9) Tobacco user Tobacco use disorder Anxiety and depression ([facility]) Type 2 diabetes mellitus with diabetic neuropathy, with long-term current use of insulin ([facility]) COPD mixed type ([facility]) Diabetic polyneuropathy associated with type 2 diabetes mellitus ([facility]) Gastroesophageal reflux disease, unspecified whether esophagitis present Mixed hyperlipidemia ([facility]) Mixed hyperlipidemia Primary hypertension ([facility]) Unspecified essential hypertension Edema of extremities Edema Lung nodule, multiple Lymphadenopathy, generalized Vitamin D deficiency Oxygen dependent Dependence on supplemental oxygen Community acquired pneumonia, unspecified laterality COPD mixed type ([facility])- Primary SANTO (obstructive sleep apnea) Obstructive sleep apnea (adult) (pediatric) Lung nodule, multiple Community acquired pneumonia, unspecified laterality Primary hypertension ([facility]) Unspecified essential hypertension Atrial fibrillation, unspecified type ([facility]) Type 2 diabetes mellitus without complication, with long-term current use of insulin ([facility]) Tobacco user Tobacco use disorder Needs flu shot Need for prophylactic vaccination and inoculation against influenza Right wrist pain- Primary Pain in joint, forearm Obesity (BMI 30-39.9) 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 ([facility])- Primary COPD with acute exacerbation ([facility])- Primary Oxygen dependent Dependence on supplemental oxygen COPD mixed type ([facility]) Obesity (BMI 30-39.9) COPD mixed type ([facility]) documented in [facility] encounter [facility]* Diagnosis Primary hypertension ([facility])- Primary Unspecified essential hypertension Type 2 diabetes mellitus with diabetic neuropathy, with long-term current use of insulin ([facility]) Gastroesophageal reflux disease, unspecified whether esophagitis present Vitamin D deficiency Type 2 diabetes mellitus with complication, without long-term current use of insulin ([facility]) Mixed hyperlipidemia ([facility]) Mixed hyperlipidemia Encounter for screening mammogram for malignant neoplasm of breast SANTO (obstructive sleep apnea) Obstructive sleep apnea (adult) (pediatric) COPD mixed type ([facility]) Anxiety and depression ([facility]) COVID Open wound Open wound(s) (multiple) of unspecified site(s), without mention of complication Morbid obesity with body mass index (BMI) of 40.0 to 49.9 ([facility]) COPD mixed type ([facility])- Primary Dysuria Atrial fibrillation, unspecified type ([facility]) Gastroesophageal reflux disease, unspecified whether esophagitis present Type 2 diabetes mellitus with complication, without long-term current use of insulin ([facility]) Obesity (BMI 30-39.9) Tobacco user Tobacco use disorder Anxiety and depression ([facility]) Dermatitis Contact dermatitis and other eczema, due to unspecified cause Anxiety and depression ([facility])- Primary Obesity (BMI 30-39.9) Type 2 diabetes mellitus with complication, without long-term current use of insulin ([facility]) Medical non-compliance Tobacco user Tobacco use disorder Type 2 diabetes mellitus with hyperglycemia ([facility])- Primary Primary hypertension ([facility]) Unspecified essential hypertension Edema of extremities Edema Type 2 diabetes mellitus without complication, with long-term current use of insulin ([facility]) Vitamin D deficiency Tobacco user Tobacco use disorder Dizziness and giddiness Atrial fibrillation, unspecified type ([facility]) COPD mixed type ([facility]) Open wound of buttock, unspecified laterality, initial encounter- Primary Type 2 diabetes mellitus without complication, with long-term current use of insulin ([facility]) Obesity (BMI 30-39.9) Dizziness and giddiness Viral upper respiratory tract infection- Primary Acute upper respiratory infections of unspecified site Tobacco user Tobacco use disorder Open wound Open wound(s) (multiple) of unspecified site(s), without mention of complication Obesity (BMI 30-39.9) Type 2 diabetes mellitus without complication, with long-term current use of insulin ([facility]) Encounter for wellness examination- Primary Osteoporosis, unspecified osteoporosis type, unspecified pathological fracture presence ([facility]) Open wound of buttock, unspecified laterality, initial encounter Type 2 diabetes mellitus without complication, with long-term current use of insulin ([facility]) Obesity (BMI 30-39.9) Tobacco user Tobacco use disorder Anxiety and depression ([facility]) Type 2 diabetes mellitus with diabetic neuropathy, with long-term current use of insulin ([facility]) COPD mixed type ([facility]) Diabetic polyneuropathy associated with type 2 diabetes mellitus ([facility]) Gastroesophageal reflux disease, unspecified whether esophagitis present Mixed hyperlipidemia ([facility]) Mixed hyperlipidemia Primary hypertension ([facility]) Unspecified essential hypertension Edema of extremities Edema Lung nodule, multiple Lymphadenopathy, generalized Vitamin D deficiency Oxygen dependent Dependence on supplemental oxygen Community acquired pneumonia, unspecified laterality COPD mixed type ([facility])- Primary SANTO (obstructive sleep apnea) Obstructive sleep apnea (adult) (pediatric) Lung nodule, multiple Community acquired pneumonia, unspecified laterality Primary hypertension ([facility]) Unspecified essential hypertension Atrial fibrillation, unspecified type ([facility]) Type 2 diabetes mellitus without complication, with long-term current use of insulin ([facility]) Tobacco user Tobacco use disorder Needs flu shot Need for prophylactic vaccination and inoculation against influenza Right wrist pain- Primary Pain in joint, forearm Obesity (BMI 30-39.9) 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 ([facility])- Primary COPD with acute exacerbation ([facility])- Primary Oxygen dependent Dependence on supplemental oxygen COPD mixed type ([facility]) Obesity (BMI 30-39.9) COVID- Primary Type 2 diabetes mellitus with diabetic polyneuropathy ([facility]) Type 2 diabetes mellitus with hyperglycemia ([facility]) 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 classified elsewhere ([facility]) 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 ([facility] COPD mixed type ([facility]) Paroxysmal atrial fibrillation ([facility] Atrial fibrillation Primary hypertension ([facility]) Unspecified essential hypertension Tobacco user Tobacco use disorder documented in this encounter [facility]* Diagnosis Primary hypertension ([facility])- Primary Unspecified essential hypertension Type 2 diabetes mellitus with diabetic neuropathy, with long-term current use of insulin ([facility]) Gastroesophageal reflux disease, unspecified whether esophagitis present Vitamin D deficiency Type 2 diabetes mellitus with complication, without long-term current use of insulin ([facility]) Mixed hyperlipidemia ([facility]) Mixed hyperlipidemia Encounter for screening mammogram for malignant neoplasm of breast SANTO (obstructive sleep apnea) Obstructive sleep apnea (adult) (pediatric) COPD mixed type ([facility]) Anxiety and depression ([facility]) COVID Open wound Open wound(s) (multiple) of unspecified site(s), without mention of complication Morbid obesity with body mass index (BMI) of 40.0 to 49.9 ([facility]) COPD mixed type ([facility])- Primary Dysuria Atrial fibrillation, unspecified type ([facility]) Gastroesophageal reflux disease, unspecified whether esophagitis present Type 2 diabetes mellitus with complication, without long-term current use of insulin ([facility]) Obesity (BMI 30-39.9) Tobacco user Tobacco use disorder Anxiety and depression ([facility]) Dermatitis Contact dermatitis and other eczema, due to unspecified cause Anxiety and depression ([facility])- Primary Obesity (BMI 30-39.9) Type 2 diabetes mellitus with complication, without long-term current use of insulin ([facility]) Medical non-compliance Tobacco user Tobacco use disorder Type 2 diabetes mellitus with hyperglycemia ([facility])- Primary Primary hypertension ([facility]) Unspecified essential hypertension Edema of extremities Edema Type 2 diabetes mellitus without complication, with long-term current use of insulin ([facility]) Vitamin D deficiency Tobacco user Tobacco use disorder Dizziness and giddiness Atrial fibrillation, unspecified type ([facility]) COPD mixed type ([facility]) Open wound of buttock, unspecified laterality, initial encounter- Primary Type 2 diabetes mellitus without complication, with long-term current use of insulin ([facility]) Obesity (BMI 30-39.9) Dizziness and giddiness Viral upper respiratory tract infection- Primary Acute upper respiratory infections of unspecified site Tobacco user Tobacco use disorder Open wound Open wound(s) (multiple) of unspecified site(s), without mention of complication Obesity (BMI 30-39.9) Type 2 diabetes mellitus without complication, with long-term current use of insulin ([facility]) Encounter for wellness examination- Primary Osteoporosis, unspecified osteoporosis type, unspecified pathological fracture presence ([facility]) Open wound of buttock, unspecified laterality, initial encounter Type 2 diabetes mellitus without complication, with long-term current use of insulin ([facility]) Obesity (BMI 30-39.9) Tobacco user Tobacco use disorder Anxiety and depression ([facility]) Type 2 diabetes mellitus with diabetic neuropathy, with long-term current use of insulin ([facility]) COPD mixed type ([facility]) Diabetic polyneuropathy associated with type 2 diabetes mellitus ([facility]) Gastroesophageal reflux disease, unspecified whether esophagitis present Mixed hyperlipidemia ([facility]) Mixed hyperlipidemia Primary hypertension ([facility]) Unspecified essential hypertension Edema of extremities Edema Lung nodule, multiple Lymphadenopathy, generalized Vitamin D deficiency Oxygen dependent Dependence on supplemental oxygen Community acquired pneumonia, unspecified laterality COPD mixed type ([facility]/HCC)- Primary SANTO (obstructive sleep apnea) Obstructive sleep apnea (adult) (pediatric) Lung nodule, multiple Community acquired pneumonia, unspecified laterality Primary hypertension ([facility]/HCC) Unspecified essential hypertension Atrial fibrillation, unspecified type ([facility]) Type 2 diabetes mellitus without complication, with long-term current use of insulin ([facility]) Tobacco user Tobacco use disorder Needs flu shot Need for prophylactic vaccination and inoculation against influenza Right wrist pain- Primary Pain in joint, forearm Obesity (BMI 30-39.9) 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 ([facility]/HCC)- Primary COPD with acute exacerbation ([facility])- Primary Oxygen dependent Dependence on supplemental oxygen COPD mixed type ([facility]) Obesity (BMI 30-39.9) COVID- Primary Type 2 diabetes mellitus with diabetic polyneuropathy ([facility]) Type 2 diabetes mellitus with hyperglycemia ([facility]) 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 classified elsewhere ([facility]) 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 ([facility] COPD mixed type ([facility] Paroxysmal atrial fibrillation ([facility]) Atrial fibrillation Primary hypertension ([facility]) Unspecified essential hypertension Tobacco user Tobacco use disorder 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 ([facility])- Primary documented in this encounter [facility]* Diagnosis Primary hypertension ([facility])- Primary Unspecified essential hypertension Type 2 diabetes mellitus with diabetic neuropathy, with long-term current use of insulin ([facility]) Gastroesophageal reflux disease, unspecified whether esophagitis present Vitamin D deficiency Type 2 diabetes mellitus with complication, without long-term current use of insulin ([facility]) Mixed hyperlipidemia ([facility]) Mixed hyperlipidemia Encounter for screening mammogram for malignant neoplasm of breast SANTO (obstructive sleep apnea) Obstructive sleep apnea (adult) (pediatric) COPD mixed type ([facility]) Anxiety and depression ([facility]) COVID Open wound Open wound(s) (multiple) of unspecified site(s), without mention of complication Morbid obesity with body mass index (BMI) of 40.0 to 49.9 ([facility]) COPD mixed type ([facility])- Primary Dysuria Atrial fibrillation, unspecified type ([facility]) Gastroesophageal reflux disease, unspecified whether esophagitis present Type 2 diabetes mellitus with complication, without long-term current use of insulin ([facility]) Obesity (BMI 30-39.9) Tobacco user Tobacco use disorder Anxiety and depression ([facility]) Dermatitis Contact dermatitis and other eczema, due to unspecified cause Anxiety and depression ([facility])- Primary Obesity (BMI 30-39.9) Type 2 diabetes mellitus with complication, without long-term current use of insulin ([facility]) Medical non-compliance Tobacco user Tobacco use disorder Type 2 diabetes mellitus with hyperglycemia ([facility])- Primary Primary hypertension ([facility]) Unspecified essential hypertension Edema of extremities Edema Type 2 diabetes mellitus without complication, with long-term current use of insulin ([facility]) Vitamin D deficiency Tobacco user Tobacco use disorder Dizziness and giddiness Atrial fibrillation, unspecified type ([facility]) COPD mixed type ([facility]) Open wound of buttock, unspecified laterality, initial encounter- Primary Type 2 diabetes mellitus without complication, with long-term current use of insulin ([facility]) Obesity (BMI 30-39.9) Dizziness and giddiness Viral upper respiratory tract infection- Primary Acute upper respiratory infections of unspecified site Tobacco user Tobacco use disorder Open wound Open wound(s) (multiple) of unspecified site(s), without mention of complication Obesity (BMI 30-39.9) Type 2 diabetes mellitus without complication, with long-term current use of insulin ([facility]) Encounter for wellness examination- Primary Osteoporosis, unspecified osteoporosis type, unspecified pathological fracture presence ([facility]) Open wound of buttock, unspecified laterality, initial encounter Type 2 diabetes mellitus without complication, with long-term current use of insulin ([facility]) Obesity (BMI 30-39.9) Tobacco user Tobacco use disorder Anxiety and depression ([facility]) Type 2 diabetes mellitus with diabetic neuropathy, with long-term current use of insulin ([facility]) COPD mixed type ([facility]) Diabetic polyneuropathy associated with type 2 diabetes mellitus ([facility]) Gastroesophageal reflux disease, unspecified whether esophagitis present Mixed hyperlipidemia ([facility]) Mixed hyperlipidemia Primary hypertension ([facility]) Unspecified essential hypertension Edema of extremities Edema Lung nodule, multiple Lymphadenopathy, generalized Vitamin D deficiency Oxygen dependent Dependence on supplemental oxygen Community acquired pneumonia, unspecified laterality COPD mixed type ([facility])- Primary SANTO (obstructive sleep apnea) Obstructive sleep apnea (adult) (pediatric) Lung nodule, multiple Community acquired pneumonia, unspecified laterality Primary hypertension ([facility]) Unspecified essential hypertension Atrial fibrillation, unspecified type ([facility]) Type 2 diabetes mellitus without complication, with long-term current use of insulin ([facility]) Tobacco user Tobacco use disorder Needs flu shot Need for prophylactic vaccination and inoculation against influenza Right wrist pain- Primary Pain in joint, forearm Obesity (BMI 30-39.9) 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 ([facility])- Primary COPD with acute exacerbation ([facility])- Primary Oxygen dependent Dependence on supplemental oxygen COPD mixed type ([facility]) Obesity (BMI 30-39.9) COVID- Primary Type 2 diabetes mellitus with diabetic polyneuropathy ([facility]) Type 2 diabetes mellitus with hyperglycemia ([facility]) 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 classified elsewhere ([facility]) halfway (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 ([facility] COPD mixed type ([facility] Paroxysmal atrial fibrillation ([facility]) Atrial fibrillation Primary hypertension ([facility]) Unspecified essential hypertension Tobacco user Tobacco use disorder Type 2 diabetes mellitus without complication, with long-term current use of insulin ([facility])- Primary documented in this encounter [facility]* Diagnosis Primary hypertension ([facility])- Primary Unspecified essential hypertension Type 2 diabetes mellitus with diabetic neuropathy, with long-term current use of insulin ([facility]) Gastroesophageal reflux disease, unspecified whether esophagitis present Vitamin D deficiency Type 2 diabetes mellitus with complication, without long-term current use of insulin ([facility] Mixed hyperlipidemia ([facility]) Mixed hyperlipidemia Encounter for screening mammogram for malignant neoplasm of breast SANTO (obstructive sleep apnea) Obstructive sleep apnea (adult) (pediatric) COPD mixed type ([facility]) Anxiety and depression ([facility]) COVID Open wound Open wound(s) (multiple) of unspecified site(s), without mention of complication Morbid obesity with body mass index (BMI) of 40.0 to 49.9 ([facility]) COPD mixed type ([facility]HCC)- Primary Dysuria Atrial fibrillation, unspecified type ([facility]) Gastroesophageal reflux disease, unspecified whether esophagitis present Type 2 diabetes mellitus with complication, without long-term current use of insulin ([facility]) Obesity (BMI 30-39.9) Tobacco user Tobacco use disorder Anxiety and depression ([facility]) Dermatitis Contact dermatitis and other eczema, due to unspecified cause Anxiety and depression ([facility])- Primary Obesity (BMI 30-39.9) Type 2 diabetes mellitus with complication, without long-term current use of insulin ([facility]) Medical non-compliance Tobacco user Tobacco use disorder Type 2 diabetes mellitus with hyperglycemia ([facility])- Primary Primary hypertension ([facility]) Unspecified essential hypertension Edema of extremities Edema Type 2 diabetes mellitus without complication, with long-term current use of insulin ([facility]) Vitamin D deficiency Tobacco user Tobacco use disorder Dizziness and giddiness Atrial fibrillation, unspecified type ([facility]) COPD mixed type ([facility]) Open wound of buttock, unspecified laterality, initial encounter- Primary Type 2 diabetes mellitus without complication, with long-term current use of insulin ([facility]) Obesity (BMI 30-39.9) Dizziness and giddiness Viral upper respiratory tract infection- Primary Acute upper respiratory infections of unspecified site Tobacco user Tobacco use disorder Open wound Open wound(s) (multiple) of unspecified site(s), without mention of complication Obesity (BMI 30-39.9) Type 2 diabetes mellitus without complication, with long-term current use of insulin ([facility]) Encounter for wellness examination- Primary Osteoporosis, unspecified osteoporosis type, unspecified pathological fracture presence ([facility]) Open wound of buttock, unspecified laterality, initial encounter Type 2 diabetes mellitus without complication, with long-term current use of insulin ([facility]) Obesity (BMI 30-39.9) Tobacco user Tobacco use disorder Anxiety and depression ([facility]) Type 2 diabetes mellitus with diabetic neuropathy, with long-term current use of insulin ([facility]) COPD mixed type ([facility]) Diabetic polyneuropathy associated with type 2 diabetes mellitus ([facility]) Gastroesophageal reflux disease, unspecified whether esophagitis present Mixed hyperlipidemia ([facility]) Mixed hyperlipidemia Primary hypertension ([facility]) Unspecified essential hypertension Edema of extremities Edema Lung nodule, multiple Lymphadenopathy, generalized Vitamin D deficiency Oxygen dependent Dependence on supplemental oxygen Community acquired pneumonia, unspecified laterality COPD mixed type ([facility])- Primary SANTO (obstructive sleep apnea) Obstructive sleep apnea (adult) (pediatric) Lung nodule, multiple Community acquired pneumonia, unspecified laterality Primary hypertension ([facility]) Unspecified essential hypertension Atrial fibrillation, unspecified type ([facility]) Type 2 diabetes mellitus without complication, with long-term [facility] Tobacco user Tobacco use disorder Needs flu shot Need for prophylactic vaccination and inoculation against influenza Right wrist pain- Primary Pain in joint, forearm Obesity (BMI 30-39.9) 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 ([facility])- Primary COPD with acute exacerbation ([facility])- Primary Oxygen dependent Dependence on supplemental oxygen COPD mixed type ([facility]) Obesity (BMI 30-39.9) COVID- Primary Type 2 diabetes mellitus with diabetic polyneuropathy ([facility]) Type 2 diabetes mellitus with hyperglycemia ([facility]) 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 classified elsewhere ([facility]) halfway (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 ([facility] COPD mixed type ([facility] Paroxysmal atrial fibrillation ([facility]) Atrial fibrillation Primary hypertension ([facility]) Unspecified essential hypertension Tobacco user Tobacco use disorder Diarrhea, unspecified type- Primary Type 2 diabetes mellitus with hyperglycemia, with long-term current use of insulin ([facility]) documented in this encounter [facility]* Diagnosis Primary hypertension ([facility])- Primary Unspecified essential hypertension Type 2 diabetes mellitus with diabetic neuropathy, with long-term current use of insulin ([facility]) Gastroesophageal reflux disease, unspecified whether esophagitis present Vitamin D deficiency Type 2 diabetes mellitus with complication, without long-term current use of insulin ([facility]) Mixed hyperlipidemia ([facility]) Mixed hyperlipidemia Encounter for screening mammogram for malignant neoplasm of breast SANTO (obstructive sleep apnea) Obstructive sleep apnea (adult) (pediatric) COPD mixed type ([facility]) Anxiety and depression ([facility]) COVID Open wound Open wound(s) (multiple) of unspecified site(s), without mention of complication Morbid obesity with body mass index (BMI) of 40.0 to 49.9 ([facility]) COPD mixed type ([facility])- Primary Dysuria Atrial fibrillation, unspecified type ([facility]) Gastroesophageal reflux disease, unspecified whether esophagitis present Type 2 diabetes mellitus with complication, without long-term current use of insulin ([facility]) Obesity (BMI 30-39.9) Tobacco user Tobacco use disorder Anxiety and depression ([facility]) Dermatitis Contact dermatitis and other eczema, due to unspecified cause Anxiety and depression ([facility])- Primary Obesity (BMI 30-39.9) Type 2 diabetes mellitus with complication, without long-term current use of insulin ([facility]) Medical non-compliance Tobacco user Tobacco use disorder Type 2 diabetes mellitus with hyperglycemia ([facility])- Primary Primary hypertension ([facility]) Unspecified essential hypertension Edema of extremities Edema Type 2 diabetes mellitus without complication, with long-term current use of insulin ([facility]) Vitamin D deficiency Tobacco user Tobacco use disorder Dizziness and giddiness Atrial fibrillation, unspecified type ([facility]) COPD mixed type ([facility]) Open wound of buttock, unspecified laterality, initial encounter- Primary Type 2 diabetes mellitus without complication, with long-term current use of insulin ([facility]) Obesity (BMI 30-39.9) Dizziness and giddiness Viral upper respiratory tract infection- Primary Acute upper respiratory infections of unspecified site Tobacco user Tobacco use disorder Open wound Open wound(s) (multiple) of unspecified site(s), without mention of complication Obesity (BMI 30-39.9) Type 2 diabetes mellitus without complication, with long-term current use of insulin ([facility]) Encounter for wellness examination- Primary Osteoporosis, unspecified osteoporosis type, unspecified pathological fracture presence ([facility]) Open wound of buttock, unspecified laterality, initial encounter Type 2 diabetes mellitus without complication, with long-term current use of insulin ([facility]) Obesity (BMI 30-39.9) Tobacco user Tobacco use disorder Anxiety and depression ([facility]) Type 2 diabetes mellitus with diabetic neuropathy, with long-term current use of insulin ([facility]) COPD mixed type ([facility]) Diabetic polyneuropathy associated with type 2 diabetes mellitus ([facility]) Gastroesophageal reflux disease, unspecified whether esophagitis present Mixed hyperlipidemia ([facility]) Mixed hyperlipidemia Primary hypertension ([facility]) Unspecified essential hypertension Edema of extremities Edema Lung nodule, multiple Lymphadenopathy, generalized Vitamin D deficiency Oxygen dependent Dependence on supplemental oxygen Community acquired pneumonia, unspecified laterality COPD mixed type ([facility])- Primary SANTO (obstructive sleep apnea) Obstructive sleep apnea (adult) (pediatric) Lung nodule, multiple Community acquired pneumonia, unspecified laterality Primary hypertension ([facility]) Unspecified essential hypertension Atrial fibrillation, unspecified type ([facility]) Type 2 diabetes mellitus without complication, with long-term current use of insulin ([facility]) Tobacco user Tobacco use disorder Needs flu shot Need for prophylactic vaccination and inoculation against influenza Right wrist pain- Primary Pain in joint, forearm Obesity (BMI 30-39.9) 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 ([facility])- Primary COPD with acute exacerbation ([facility])- Primary Oxygen dependent Dependence on supplemental oxygen COPD mixed type ([facility]) Obesity (BMI 30-39.9) COVID- Primary Type 2 diabetes mellitus with diabetic polyneuropathy ([facility]) Type 2 diabetes mellitus with hyperglycemia ([facility]) 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 classified elsewhere ([facility]) 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 ([facility] COPD mixed type ([facility] Paroxysmal atrial fibrillation ([facility]) Atrial fibrillation Primary hypertension ([facility]) Unspecified essential hypertension Tobacco user Tobacco use disorder Diarrhea, unspecified type- Primary documented in this encounter [facility] HealthcareEvaluation [facility]* Diagnosis Primary hypertension ([facility])- Primary Unspecified essential hypertension Type 2 diabetes mellitus with diabetic neuropathy, with long-term current use of insulin ([facility]) Gastroesophageal reflux disease, unspecified whether esophagitis present Vitamin D deficiency Type 2 diabetes mellitus with complication, without long-term current use of insulin ([facility]) Mixed hyperlipidemia ([facility]) Mixed hyperlipidemia Encounter for screening mammogram for malignant neoplasm of breast SANTO (obstructive sleep apnea) Obstructive sleep apnea (adult) (pediatric) COPD mixed type ([facility]) Anxiety and depression ([facility]) COVID Open wound Open wound(s) (multiple) of unspecified site(s), without mention of complication Morbid obesity with body mass index (BMI) of 40.0 to 49.9 ([facility]) COPD mixed type ([facility])- Primary Dysuria Atrial fibrillation, unspecified type ([facility]) Gastroesophageal reflux disease, unspecified whether esophagitis present Type 2 diabetes mellitus with complication, without long-term current use of insulin ([facility]) Obesity (BMI 30-39.9) Tobacco user Tobacco use disorder Anxiety and depression ([facility]) Dermatitis Contact dermatitis and other eczema, due to unspecified cause Anxiety and depression ([facility])- Primary Obesity (BMI 30-39.9) Type 2 diabetes mellitus with complication, without long-term current use of insulin ([facility]) Medical non-compliance Tobacco user Tobacco use disorder Type 2 diabetes mellitus with hyperglycemia ([facility])- Primary Primary hypertension ([facility]) Unspecified essential hypertension Edema of extremities Edema Type 2 diabetes mellitus without complication, with long-term current use of insulin ([facility]) Vitamin D deficiency Tobacco user Tobacco use disorder Dizziness and giddiness Atrial fibrillation, unspecified type ([facility]) COPD mixed type ([facility]) Open wound of buttock, unspecified laterality, initial encounter- Primary Type 2 diabetes mellitus without complication, with long-term current use of insulin ([facility]) Obesity (BMI 30-39.9) Dizziness and giddiness Viral upper respiratory tract infection- Primary Acute upper respiratory infections of unspecified site Tobacco user Tobacco use disorder Open wound Open wound(s) (multiple) of unspecified site(s), without mention of complication Obesity (BMI 30-39.9) Type 2 diabetes mellitus without complication, with long-term current use of insulin ([facility]) Encounter for wellness examination- Primary Osteoporosis, unspecified osteoporosis type, unspecified pathological fracture presence ([facility]) Open wound of buttock, unspecified laterality, initial encounter Type 2 diabetes mellitus without complication, with long-term current use of insulin ([facility]) Obesity (BMI 30-39.9) Tobacco user Tobacco use disorder Anxiety and depression ([facility]) Type 2 diabetes mellitus with diabetic neuropathy, with long-term current use of insulin ([facility]) COPD mixed type ([facility]) Diabetic polyneuropathy associated with type 2 diabetes mellitus ([facility]) Gastroesophageal reflux disease, unspecified whether esophagitis present Mixed hyperlipidemia ([facility]) Mixed hyperlipidemia Primary hypertension ([facility]) Unspecified essential hypertension Edema of extremities Edema Lung nodule, multiple Lymphadenopathy, generalized Vitamin D deficiency Oxygen dependent Dependence on supplemental oxygen Community acquired pneumonia, unspecified laterality COPD mixed type ([facility])- Primary SANTO (obstructive sleep apnea) Obstructive sleep apnea (adult) (pediatric) Lung nodule, multiple Community acquired pneumonia, unspecified laterality Primary hypertension ([facility]) Unspecified essential hypertension Atrial fibrillation, unspecified type ([facility]) Type 2 diabetes mellitus without complication, with long-term current use of insulin ([facility]) Tobacco user Tobacco use disorder Needs flu shot Need for prophylactic vaccination and inoculation against influenza Right wrist pain- Primary Pain in joint, forearm Obesity (BMI 30-39.9) 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 ([facility])- Primary COPD with acute exacerbation ([facility])- Primary Oxygen dependent Dependence on supplemental oxygen COPD mixed type ([facility] Obesity (BMI 30-39.9) COVID- Primary Type 2 diabetes mellitus with diabetic polyneuropathy ([facility] Type 2 diabetes mellitus with hyperglycemia ([facility]) 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 classified elsewhere ([facility]) 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 ([facility] COPD mixed type ([facility] Paroxysmal atrial fibrillation ([facility]) Atrial fibrillation Primary hypertension ([facility]) Unspecified essential hypertension Tobacco user Tobacco use disorder Type 2 diabetes mellitus with diabetic neuropathy, with long-term current use of insulin ([facility]) documented in this encounter [facility] HealthcareEvaluation note* Diagnosis Primary hypertension ([facility])- Primary Unspecified essential hypertension Type 2 diabetes mellitus with diabetic neuropathy, with long-term current use of insulin ([facility]) Gastroesophageal reflux disease, unspecified whether esophagitis present Vitamin D deficiency Type 2 diabetes mellitus with complication, without long-term current use of insulin ([facility]) Mixed hyperlipidemia ([facility]) Mixed hyperlipidemia Encounter for screening mammogram for malignant neoplasm of breast SANTO (obstructive sleep apnea) Obstructive sleep apnea (adult) (pediatric) COPD mixed type ([facility]) Anxiety and depression ([facility]) COVID Open wound Open wound(s) (multiple) of unspecified site(s), without mention of complication Morbid obesity with body mass index (BMI) of 40.0 to 49.9 ([facility]) COPD mixed type ([facility])- Primary Dysuria Atrial fibrillation, unspecified type ([facility]) Gastroesophageal reflux disease, unspecified whether esophagitis present Type 2 diabetes mellitus with complication, without long-term current use of insulin ([facility]) Obesity (BMI 30-39.9) Tobacco user Tobacco use disorder Anxiety and depression ([facility]) Dermatitis Contact dermatitis and other eczema, due to unspecified cause Type 2 diabetes mellitus with hyperglycemia ([facility])- Primary Primary hypertension ([facility]) Unspecified essential hypertension Edema of extremities Edema Type 2 diabetes mellitus without complication, with long-term current use of insulin ([facility]) Vitamin D deficiency Tobacco user Tobacco use disorder Dizziness and giddiness Atrial fibrillation, unspecified type ([facility]) COPD mixed type ([facility]) Open wound of buttock, unspecified laterality, initial encounter- Primary Type 2 diabetes mellitus without complication, with long-term current use of insulin ([facility]) Obesity (BMI 30-39.9) Dizziness and giddiness Viral upper respiratory tract infection- Primary Acute upper respiratory infections of unspecified site Tobacco user Tobacco use disorder Open wound Open wound(s) (multiple) of unspecified site(s), without mention of complication Obesity (BMI 30-39.9) Type 2 diabetes mellitus without complication, with long-term current use of insulin ([facility]) Encounter for wellness examination- Primary Osteoporosis, unspecified osteoporosis type, unspecified pathological fracture presence ([facility]) Open wound of buttock, unspecified laterality, initial encounter Type 2 diabetes mellitus without complication, with long-term current use of insulin ([facility]) Obesity (BMI 30-39.9) Tobacco user Tobacco use disorder Anxiety and depression ([facility]) Type 2 diabetes mellitus with diabetic neuropathy, with long-term current use of insulin ([facility]) COPD mixed type ([facility]) Diabetic polyneuropathy associated with type 2 diabetes mellitus ([facility]) Gastroesophageal reflux disease, unspecified whether esophagitis present Mixed hyperlipidemia ([facility]) Mixed hyperlipidemia Primary hypertension ([facility]) Unspecified essential hypertension Edema of extremities Edema Lung nodule, multiple Lymphadenopathy, generalized Vitamin D deficiency Oxygen dependent Dependence on supplemental oxygen Community acquired pneumonia, unspecified laterality COPD mixed type ([facility])- Primary SANTO (obstructive sleep apnea) Obstructive sleep apnea (adult) (pediatric) Lung nodule, multiple Community acquired pneumonia, unspecified laterality Primary hypertension ([facility]) Unspecified essential hypertension Atrial fibrillation, unspecified type ([facility]) Type 2 diabetes mellitus without complication, with long-term current use of insulin ([facility]) Tobacco user Tobacco use disorder Needs flu shot Need for prophylactic vaccination and inoculation against influenza Right wrist pain- Primary Pain in joint, forearm Obesity (BMI 30-39.9) 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 ([facility])- Primary COPD with acute exacerbation ([facility])- Primary Oxygen dependent Dependence on supplemental oxygen COPD mixed type ([facility]) Obesity (BMI 30-39.9) COVID- Primary Type 2 diabetes mellitus with diabetic polyneuropathy ([facility]) Type 2 diabetes mellitus with hyperglycemia ([facility]) 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 classified elsewhere ([facility]) halfway (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 ([facility] COPD mixed type ([facility] Paroxysmal atrial fibrillation ([facility] Atrial fibrillation Primary hypertension ([facility]) Unspecified essential hypertension Tobacco user Tobacco use disorder JORDAN (generalized anxiety disorder) ([facility])- Primary Generalized anxiety disorder SANTO (obstructive sleep apnea) Obstructive sleep apnea (adult) (pediatric) Type 2 diabetes mellitus with diabetic polyneuropathy, with long-term current use of insulin ([facility]) COPD mixed type ([facility] Oxygen dependent Dependence on supplemental oxygen Paroxysmal atrial fibrillation ([facility]) Atrial fibrillation Primary hypertension ([facility]) Unspecified essential hypertension Gastroesophageal reflux disease, unspecified whether esophagitis present Obesity (BMI 30-39.9) Type 2 diabetes mellitus without complication, with long-term current use of insulin ([facility] Anxiety and depression ([facility]) 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 ([facility]) Medical non-compliance Mild episode of recurrent major depressive disorder (HCC) ([facility]) Cigarette nicotine dependence without complication Encounter for screening mammogram for malignant neoplasm of breast Diabetic polyneuropathy associated with type 2 diabetes mellitus ([facility]) Mixed hyperlipidemia ([facility]) Mixed hyperlipidemia Edema of extremities Edema documented in this encounter [facility] HealthcareEvaluation note* Diagnosis Primary hypertension ([facility])- Primary Unspecified essential hypertension Type 2 diabetes mellitus with diabetic neuropathy, with long-term current use of insulin ([facility]) Gastroesophageal reflux disease, unspecified whether esophagitis present Vitamin D deficiency Type 2 diabetes mellitus with complication, without long-term current use of insulin ([facility]) Mixed hyperlipidemia ([facility]) Mixed hyperlipidemia Encounter for screening mammogram for malignant neoplasm of breast SANTO (obstructive sleep apnea) Obstructive sleep apnea (adult) (pediatric) COPD mixed type ([facility]) Anxiety and depression ([facility]) COVID Open wound Open wound(s) (multiple) of unspecified site(s), without mention of complication Morbid obesity with body mass index (BMI) of 40.0 to 49.9 ([facility]) COPD mixed type ([facility])- Primary Dysuria Atrial fibrillation, unspecified type ([facility]) Gastroesophageal reflux disease, unspecified whether esophagitis present Type 2 diabetes mellitus with complication, without long-term current use of insulin ([facility]) Obesity (BMI 30-39.9) Tobacco user Tobacco use disorder Anxiety and depression ([facility]) Dermatitis Contact dermatitis and other eczema, due to unspecified cause Type 2 diabetes mellitus with hyperglycemia ([facility])- Primary Primary hypertension ([facility]) Unspecified essential hypertension Edema of extremities Edema Type 2 diabetes mellitus without complication, with long-term current use of insulin ([facility]) Vitamin D deficiency Tobacco user Tobacco use disorder Dizziness and giddiness Atrial fibrillation, unspecified type ([facility]) COPD mixed type ([facility]) Open wound of buttock, unspecified laterality, initial encounter- Primary Type 2 diabetes mellitus without complication, with long-term current use of insulin ([facility]) Obesity (BMI 30-39.9) Dizziness and giddiness Viral upper respiratory tract infection- Primary Acute upper respiratory infections of unspecified site Tobacco user Tobacco use disorder Open wound Open wound(s) (multiple) of unspecified site(s), without mention of complication Obesity (BMI 30-39.9) Type 2 diabetes mellitus without complication, with long-term current use of insulin ([facility]) Encounter for wellness examination- Primary Osteoporosis, unspecified osteoporosis type, unspecified pathological fracture presence ([facility]) Open wound of buttock, unspecified laterality, initial encounter Type 2 diabetes mellitus without complication, with long-term current use of insulin ([facility]) Obesity (BMI 30-39.9) Tobacco user Tobacco use disorder Anxiety and depression ([facility]) Type 2 diabetes mellitus with diabetic neuropathy, with long-term current use of insulin ([facility]) COPD mixed type ([facility]) Diabetic polyneuropathy associated with type 2 diabetes mellitus ([facility]) Gastroesophageal reflux disease, unspecified whether esophagitis present Mixed hyperlipidemia ([facility]) Mixed hyperlipidemia Primary hypertension ([facility]) Unspecified essential hypertension Edema of extremities Edema Lung nodule, multiple Lymphadenopathy, generalized Vitamin D deficiency Oxygen dependent Dependence on supplemental oxygen Community acquired pneumonia, unspecified laterality COPD mixed type ([facility])- Primary SANTO (obstructive sleep apnea) Obstructive sleep apnea (adult) (pediatric) Lung nodule, multiple Community acquired pneumonia, unspecified laterality Primary hypertension ([facility]) Unspecified essential hypertension Atrial fibrillation, unspecified type ([facility]) Type 2 diabetes mellitus without complication, with long-term current use of insulin ([facility]) Tobacco user Tobacco use disorder Needs flu shot Need for prophylactic vaccination and inoculation against influenza Right wrist pain- Primary Pain in joint, forearm Obesity (BMI 30-39.9) 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 ([facility])- Primary COPD with acute exacerbation ([facility])- Primary Oxygen dependent Dependence on supplemental oxygen COPD mixed type ([facility]) Obesity (BMI 30-39.9) COVID- Primary Type 2 diabetes mellitus with diabetic polyneuropathy ([facility]) Type 2 diabetes mellitus with hyperglycemia ([facility]) 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 classified elsewhere ([facility]) halfway (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 ([facility] COPD mixed type ([facility] Paroxysmal atrial fibrillation ([facility] Atrial fibrillation Primary hypertension ([facility]) Unspecified essential hypertension Tobacco user Tobacco use disorder JORDAN (generalized anxiety disorder) ([facility])- Primary Generalized anxiety disorder SANTO (obstructive sleep apnea) Obstructive sleep apnea (adult) (pediatric) Type 2 diabetes mellitus with diabetic polyneuropathy, with long-term current use of insulin ([facility]) COPD mixed type ([facility] Oxygen dependent Dependence on supplemental oxygen Paroxysmal atrial fibrillation ([facility]) Atrial fibrillation Primary hypertension ([facility]) Unspecified essential hypertension Gastroesophageal reflux disease, unspecified whether esophagitis present Obesity (BMI 30-39.9) Type 2 diabetes mellitus without complication, with long-term current use of insulin ([facility] Anxiety and depression ([facility]) 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 ([facility]) Medical non-compliance Mild episode of recurrent major depressive disorder (HCC) ([facility]) Cigarette nicotine dependence without complication Encounter for screening mammogram for malignant neoplasm of breast Diabetic polyneuropathy associated with type 2 diabetes mellitus ([facility] Mixed hyperlipidemia ([facility]) Mixed hyperlipidemia Edema of extremities Edema documented in this encounter [facility] HealthcareEvaluation note* Diagnosis Primary hypertension ([facility])- Primary Unspecified essential hypertension Type 2 diabetes mellitus with diabetic neuropathy, with long-term current use of insulin ([facility]) Gastroesophageal reflux disease, unspecified whether esophagitis present Vitamin D deficiency Type 2 diabetes mellitus with complication, without long-term current use of insulin ([facility]) Mixed hyperlipidemia ([facility]) Mixed hyperlipidemia Encounter for screening mammogram for malignant neoplasm of breast SANTO (obstructive sleep apnea) Obstructive sleep apnea (adult) (pediatric) COPD mixed type ([facility]) Anxiety and depression ([facility]) COVID Open wound Open wound(s) (multiple) of unspecified site(s), without mention of complication Morbid obesity with body mass index (BMI) of 40.0 to 49.9 ([facility]) COPD mixed type ([facility])- Primary Dysuria Atrial fibrillation, unspecified type ([facility]) Gastroesophageal reflux disease, unspecified whether esophagitis present Type 2 diabetes mellitus with complication, without long-term current use of insulin ([facility]) Obesity (BMI 30-39.9) Tobacco user Tobacco use disorder Anxiety and depression ([facility]) Dermatitis Contact dermatitis and other eczema, due to unspecified cause Type 2 diabetes mellitus with hyperglycemia ([facility])- Primary Primary hypertension ([facility]) Unspecified essential hypertension Edema of extremities Edema Type 2 diabetes mellitus without complication, with long-term current use of insulin ([facility]) Vitamin D deficiency Tobacco user Tobacco use disorder Dizziness and giddiness Atrial fibrillation, unspecified type ([facility]) COPD mixed type ([facility]) Open wound of buttock, unspecified laterality, initial encounter- Primary Type 2 diabetes mellitus without complication, with long-term current use of insulin ([facility]) Obesity (BMI 30-39.9) Dizziness and giddiness Viral upper respiratory tract infection- Primary Acute upper respiratory infections of unspecified site Tobacco user Tobacco use disorder Open wound Open wound(s) (multiple) of unspecified site(s), without mention of complication Obesity (BMI 30-39.9) Type 2 diabetes mellitus without complication, with long-term current use of insulin ([facility]) Encounter for wellness examination- Primary Osteoporosis, unspecified osteoporosis type, unspecified pathological fracture presence ([facility]) Open wound of buttock, unspecified laterality, initial encounter Type 2 diabetes mellitus without complication, with long-term current use of insulin ([facility]) Obesity (BMI 30-39.9) Tobacco user Tobacco use disorder Anxiety and depression ([facility]) Type 2 diabetes mellitus with diabetic neuropathy, with long-term current use of insulin ([facility]) COPD mixed type ([facility]) Diabetic polyneuropathy associated with type 2 diabetes mellitus ([facility]) Gastroesophageal reflux disease, unspecified whether esophagitis present Mixed hyperlipidemia ([facility]) Mixed hyperlipidemia Primary hypertension ([facility]) Unspecified essential hypertension Edema of extremities Edema Lung nodule, multiple Lymphadenopathy, generalized Vitamin D deficiency Oxygen dependent Dependence on supplemental oxygen Community acquired pneumonia, unspecified laterality COPD mixed type ([facility])- Primary SANTO (obstructive sleep apnea) Obstructive sleep apnea (adult) (pediatric) Lung nodule, multiple Community acquired pneumonia, unspecified laterality Primary hypertension ([facility]) Unspecified essential hypertension Atrial fibrillation, unspecified type ([facility]/HCC) Type 2 diabetes mellitus without complication, with long-term current use of insulin ([facility]/HCC) Tobacco user Tobacco use disorder Needs flu shot Need for prophylactic vaccination and inoculation against influenza Right wrist pain- Primary Pain in joint, forearm Obesity (BMI 30-39.9) 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 (CMS/HCC)- Primary COPD with acute exacerbation ([facility])- Primary Oxygen dependent Dependence on supplemental oxygen COPD mixed type (CMS/HCC) Obesity (BMI 30-39.9) COVID- Primary Type 2 diabetes mellitus with diabetic polyneuropathy ([facility]) Type 2 diabetes mellitus with hyperglycemia ([facility]) 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 classified elsewhere ([facility]) halfway (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 ([facility]) COPD mixed type ([facility]/HCC) Paroxysmal atrial fibrillation ([facility]HCC) Atrial fibrillation Primary hypertension ([facility]) Unspecified essential hypertension Tobacco user Tobacco use disorder JORDAN (generalized anxiety disorder) ([facility])- Primary Generalized anxiety disorder SANTO (obstructive sleep apnea) Obstructive sleep apnea (adult) (pediatric) Type 2 diabetes mellitus with diabetic polyneuropathy, with long-term current use of insulin ([facility]) COPD mixed type ([facility]/HCC) Oxygen dependent Dependence on supplemental oxygen Paroxysmal atrial fibrillation ([facility]) Atrial fibrillation Primary hypertension ([facility]) Unspecified essential hypertension Gastroesophageal reflux disease, unspecified whether esophagitis present Obesity (BMI 30-39.9) Type 2 diabetes mellitus without complication, with long-term current use of insulin ([facility]) Anxiety and depression ([facility]) halfway (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 ([facility]) Medical non-compliance Mild episode of recurrent major depressive disorder (HCC) ([facility]) Cigarette nicotine dependence without complication Encounter for screening mammogram for malignant neoplasm of breast Diabetic polyneuropathy associated with type 2 diabetes mellitus ([facility]/HCC) Mixed hyperlipidemia ([facility]) Mixed hyperlipidemia Edema of extremities Edema Type 2 diabetes mellitus with hyperglycemia, with long-term current use of insulin ([facility])- Primary Type 2 diabetes mellitus with hyperglycemia, with long-term current use of insulin ([facility]/HCC) documented in this encounter [facility] HealthcareEvaluation note* Diagnosis Primary hypertension ([facility])- Primary Unspecified essential hypertension Type 2 diabetes mellitus with diabetic neuropathy, with long-term current use of insulin ([facility]) Gastroesophageal reflux disease, unspecified whether esophagitis present Vitamin D deficiency Type 2 diabetes mellitus with complication, without long-term current use of insulin ([facility]) Mixed hyperlipidemia ([facility]) Mixed hyperlipidemia Encounter for screening mammogram for malignant neoplasm of breast SANTO (obstructive sleep apnea) Obstructive sleep apnea (adult) (pediatric) COPD mixed type ([facility]) Anxiety and depression ([facility]) COVID Open wound Open wound(s) (multiple) of unspecified site(s), without mention of complication Morbid obesity with body mass index (BMI) of 40.0 to 49.9 ([facility]) COPD mixed type ([facility])- Primary Dysuria Atrial fibrillation, unspecified type ([facility]) Gastroesophageal reflux disease, unspecified whether esophagitis present Type 2 diabetes mellitus with complication, without long-term current use of insulin ([facility]) Obesity (BMI 30-39.9) Tobacco user Tobacco use disorder Anxiety and depression ([facility]) Dermatitis Contact dermatitis and other eczema, due to unspecified cause Type 2 diabetes mellitus with hyperglycemia ([facility])- Primary Primary hypertension ([facility]) Unspecified essential hypertension Edema of extremities Edema Type 2 diabetes mellitus without complication, with long-term current use of insulin ([facility]) Vitamin D deficiency Tobacco user Tobacco use disorder Dizziness and giddiness Atrial fibrillation, unspecified type ([facility]) COPD mixed type ([facility]) Open wound of buttock, unspecified laterality, initial encounter- Primary Type 2 diabetes mellitus without complication, with long-term current use of insulin ([facility]) Obesity (BMI 30-39.9) Dizziness and giddiness Viral upper respiratory tract infection- Primary Acute upper respiratory infections of unspecified site Tobacco user Tobacco use disorder Open wound Open wound(s) (multiple) of unspecified site(s), without mention of complication Obesity (BMI 30-39.9) Type 2 diabetes mellitus without complication, with long-term current use of insulin ([facility]) Encounter for wellness examination- Primary Osteoporosis, unspecified osteoporosis type, unspecified pathological fracture presence ([facility]) Open wound of buttock, unspecified laterality, initial encounter Type 2 diabetes mellitus without complication, with long-term current use of insulin ([facility]) Obesity (BMI 30-39.9) Tobacco user Tobacco use disorder Anxiety and depression ([facility]) Type 2 diabetes mellitus with diabetic neuropathy, with long-term current use of insulin ([facility]) COPD mixed type ([facility]) Diabetic polyneuropathy associated with type 2 diabetes mellitus ([facility]) Gastroesophageal reflux disease, unspecified whether esophagitis present Mixed hyperlipidemia ([facility]) Mixed hyperlipidemia Primary hypertension ([facility]) Unspecified essential hypertension Edema of extremities Edema Lung nodule, multiple Lymphadenopathy, generalized Vitamin D deficiency Oxygen dependent Dependence on supplemental oxygen Community acquired pneumonia, unspecified laterality COPD mixed type ([facility])- Primary SANTO (obstructive sleep apnea) Obstructive sleep apnea (adult) (pediatric) Lung nodule, multiple Community acquired pneumonia, unspecified laterality Primary hypertension ([facility]) Unspecified essential hypertension Atrial fibrillation, unspecified type ([facility]) Type 2 diabetes mellitus without complication, with long-term current use of insulin ([facility]) Tobacco user Tobacco use disorder Needs flu shot Need for prophylactic vaccination and inoculation against influenza Right wrist pain- Primary Pain in joint, forearm Obesity (BMI 30-39.9) 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 ([facility])- Primary COPD with acute exacerbation ([facility])- Primary Oxygen dependent Dependence on supplemental oxygen COPD mixed type ([facility]) Obesity (BMI 30-39.9) COVID- Primary Type 2 diabetes mellitus with diabetic polyneuropathy ([facility]) Type 2 diabetes mellitus with hyperglycemia ([facility]) 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 classified elsewhere ([facility]) halfway (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 ([facility] COPD mixed type ([facility] Paroxysmal atrial fibrillation ([facility]) Atrial fibrillation Primary hypertension ([facility]) Unspecified essential hypertension Tobacco user Tobacco use disorder JORDAN (generalized anxiety disorder) ([facility])- Primary Generalized anxiety disorder SANTO (obstructive sleep apnea) Obstructive sleep apnea (adult) (pediatric) Type 2 diabetes mellitus with diabetic polyneuropathy, with long-term current use of insulin ([facility]) COPD mixed type ([facility]) Oxygen dependent Dependence on supplemental oxygen Paroxysmal atrial fibrillation ([facility]) Atrial fibrillation Primary hypertension ([facility]) Unspecified essential hypertension Gastroesophageal reflux disease, unspecified whether esophagitis present Obesity (BMI 30-39.9) Type 2 diabetes mellitus without complication, with long-term current use of insulin ([facility]) Anxiety and depression ([facility]) halfway (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 ([facility]) Medical non-compliance Mild episode of recurrent major depressive disorder (HCC) ([facility]) Cigarette nicotine dependence without complication Encounter for screening mammogram for malignant neoplasm of breast Diabetic polyneuropathy associated with type 2 diabetes mellitus ([facility]) Mixed hyperlipidemia ([facility]) Mixed hyperlipidemia Edema of extremities Edema Hypokalemia- Primary Hypopotassemia COPD mixed type ([facility]) Osteoporosis, unspecified osteoporosis type, unspecified pathological fracture presence ([facility]) Type 2 diabetes mellitus with hyperglycemia, with long-term current use of insulin ([facility]) documented in this encounter [facility] HealthcareEvaluation note* Diagnosis Primary hypertension ([facility])- Primary Unspecified essential hypertension Type 2 diabetes mellitus with diabetic neuropathy, with long-term current use of insulin ([facility]) Gastroesophageal reflux disease, unspecified whether esophagitis present Vitamin D deficiency Type 2 diabetes mellitus with complication, without long-term current use of insulin ([facility]) Mixed hyperlipidemia ([facility]) Mixed hyperlipidemia Encounter for screening mammogram for malignant neoplasm of breast SANTO (obstructive sleep apnea) Obstructive sleep apnea (adult) (pediatric) COPD mixed type ([facility]) Anxiety and depression ([facility]) COVID Open wound Open wound(s) (multiple) of unspecified site(s), without mention of complication Morbid obesity with body mass index (BMI) of 40.0 to 49.9 ([facility]) COPD mixed type ([facility]HCC)- Primary Dysuria Atrial fibrillation, unspecified type ([facility]) Gastroesophageal reflux disease, unspecified whether esophagitis present Type 2 diabetes mellitus with complication, without long-term current use of insulin ([facility]) Obesity (BMI 30-39.9) Tobacco user Tobacco use disorder Anxiety and depression ([facility]) Dermatitis Contact dermatitis and other eczema, due to unspecified cause Type 2 diabetes mellitus with hyperglycemia ([facility])- Primary Primary hypertension ([facility]) Unspecified essential hypertension Edema of extremities Edema Type 2 diabetes mellitus without complication, with long-term current use of insulin Vitamin D deficiency Tobacco user Tobacco use disorder Dizziness and giddiness Atrial fibrillation, unspecified type (CMS/HCC) COPD mixed type ([facility]/H[facility]) Open wound of buttock, unspecified laterality, [...] unspecified osteoporosis type, unspecified pathological fracture presence ([facility]) Open wound of buttock, unspecified laterality, initial encounter Type 2 diabetes mellitus without complication, with long-term current use of insulin Obesity (BMI 30-39.9) Tobacco user Tobacco use disorder Anxiety and depression ([facility]) Type 2 diabetes mellitus with diabetic neuropathy, with long-term current use of insulin ([facility]) COPD mixed type ([facility]) Diabetic polyneuropathy associated with type 2 diabetes mellitus ([facility]) Gastroesophageal reflux disease, unspecified whether esophagitis present Mixed hyperlipidemia ([facility]) Mixed hyperlipidemia Primary hypertension ([facility]) Unspecified essential hypertension Edema of extremities Edema Lung nodule, multiple Lymphadenopathy, generalized Vitamin D deficiency Oxygen dependent Dependence on supplemental oxygen Community acquired pneumonia, unspecified laterality COPD mixed type ([facility])- Primary SANTO (obstructive sleep apnea) Obstructive sleep apnea (adult) (pediatric) Lung nodule, multiple Community acquired pneumonia, unspecified laterality Primary hypertension ([facility]) Unspecified essential hypertension Atrial fibrillation, unspecified type ([facility]) Type 2 diabetes mellitus without complication, with long-term current use of insulin Tobacco user Tobacco use disorder Needs flu shot Need for prophylactic vaccination and inoculation against influenza Right wrist pain- Primary Pain in joint, forearm Obesity (BMI 30-39.9) 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 ([facility])- Primary COPD with acute exacerbation ([facility])- Primary Oxygen dependent Dependence on supplemental oxygen COPD mixed type ([facility]) Obesity (BMI 30-39.9) COVID- Primary Type 2 diabetes mellitus with diabetic polyneuropathy ([facility]) Type 2 diabetes mellitus with hyperglycemia ([facility]) 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 classified elsewhere ([facility]) halfway (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 ([facility] COPD mixed type ([facility] Paroxysmal atrial fibrillation ([facility] Atrial fibrillation Primary hypertension ([facility]) Unspecified essential hypertension Tobacco user Tobacco use disorder JORDAN (generalized anxiety disorder) ([facility])- Primary Generalized anxiety disorder SANTO (obstructive sleep [...] current use of insulin Anxiety and depression ([facility]) 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 ([facility]) Medical non-compliance Mild episode of recurrent major depressive disorder (HCC) ([facility]) Cigarette nicotine dependence without complication Encounter for screening mammogram for malignant neoplasm of breast Diabetic polyneuropathy associated with type 2 diabetes mellitus ([facility] Mixed hyperlipidemia ([facility]) Mixed hyperlipidemia Edema of extremities Edema COPD mixed type ([facility]) documented in this encounter [facility] Healthcare[facility]* Diagnosis Primary hypertension ([facility])- Primary Unspecified essential hypertension Type 2 diabetes mellitus with diabetic neuropathy, with long-term current use of insulin ([facility]) Gastroesophageal reflux disease, unspecified whether esophagitis present Vitamin D deficiency Type 2 diabetes mellitus with complication, without long-term current use of insulin ([facility]) Mixed hyperlipidemia ([facility]) Mixed hyperlipidemia Encounter for screening mammogram for malignant neoplasm of breast SANTO (obstructive sleep apnea) Obstructive sleep apnea (adult) (pediatric) COPD mixed type ([facility]/H[facility]) Anxiety and depression ([facility]) COVID Open wound Open wound(s) (multiple) of unspecified site(s), without mention of complication Morbid obesity with body mass index (BMI) of 40.0 to 49.9 ([facility]) COPD mixed type (CMS/HCC)- Primary Dysuria Atrial fibrillation, unspecified type ([facility]) Gastroesophageal reflux disease, unspecified whether esophagitis present Type 2 diabetes mellitus with complication, without long-term current use of insulin ([facility]) Obesity (BMI 30-39.9) Tobacco user Tobacco use disorder Anxiety and depression ([facility]) Dermatitis Contact dermatitis and other eczema, due to unspecified cause Type 2 diabetes mellitus with hyperglycemia ([facility])- Primary Primary hypertension ([facility]) Unspecified essential hypertension Edema [...] unspecified osteoporosis type, unspecified pathological fracture presence ([facility]) Open wound of buttock, unspecified laterality, initial encounter Type 2 diabetes mellitus without complication, with long-term current use of insulin Obesity (BMI 30-39.9) Tobacco user Tobacco use disorder Anxiety and depression ([facility]) Type 2 diabetes mellitus with diabetic neuropathy, with long-term current use of insulin ([facility]) COPD mixed type ([facility]) Diabetic polyneuropathy associated with type 2 diabetes mellitus ([facility]) Gastroesophageal reflux disease, unspecified whether esophagitis present Mixed hyperlipidemia ([facility]) Mixed hyperlipidemia Primary hypertension ([facility]) Unspecified essential hypertension Edema of extremities Edema Lung nodule, multiple Lymphadenopathy, generalized Vitamin D deficiency Oxygen dependent Dependence on supplemental oxygen Community acquired pneumonia, unspecified laterality COPD mixed type ([facility])- Primary SANTO (obstructive sleep apnea) Obstructive sleep apnea (adult) (pediatric) Lung nodule, multiple Community acquired pneumonia, unspecified laterality Primary hypertension ([facility]) Unspecified essential hypertension Atrial fibrillation, unspecified type ([facility]) Type 2 diabetes mellitus without complication, with long-term current use of insulin Tobacco user Tobacco use disorder Needs flu shot Need for prophylactic vaccination and inoculation against influenza Right wrist pain- Primary Pain in joint, forearm Obesity (BMI 30-39.9) 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 ([facility])- Primary COPD with acute exacerbation ([facility])- Primary Oxygen dependent Dependence on supplemental oxygen COPD mixed type ([facility]) Obesity (BMI 30-39.9) COVID- Primary Type 2 diabetes mellitus with diabetic polyneuropathy ([facility]) Type 2 diabetes mellitus with hyperglycemia ([facility]) 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 classified elsewhere ([facility]) 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 ([facility] COPD mixed type ([facility] Paroxysmal atrial fibrillation ([facility]) Atrial fibrillation Primary hypertension ([facility]) Unspecified essential hypertension Tobacco user Tobacco use disorder JORDAN (generalized anxiety disorder) ([facility])- Primary Generalized anxiety disorder SANTO (obstructive sleep apnea) Obstructive sleep apnea (adult) (pediatric) Type 2 diabetes mellitus with diabetic polyneuropathy, with long-term current use of insulin ([facility]) COPD mixed type ([facility]) Oxygen dependent Dependence on supplemental oxygen Paroxysmal atrial fibrillation ([facility]) Atrial fibrillation Primary hypertension ([facility]) Unspecified essential hypertension Gastroesophageal reflux disease, unspecified whether esophagitis present Obesity (BMI 30-39.9) Type 2 diabetes mellitus without complication, with long-term current use of insulin Anxiety and depression ([facility]) halfway (current) use of insulin ([facility]) Medical non-compliance Mild episode of recurrent major depressive disorder (HCC) ([facility]) Cigarette nicotine dependence without complication Encounter for screening mammogram for malignant neoplasm of breast Diabetic polyneuropathy associated with type 2 diabetes mellitus ([facility]) Mixed hyperlipidemia ([facility]) Mixed hyperlipidemia Edema of extremities Edema JORDAN (generalized anxiety disorder) ([facility]) Generalized anxiety disorder Mild episode of recurrent major depressive disorder (HCC) ([facility]) documented in this encounter [facility] HealthcareEvaluation note* Diagnosis Primary hypertension ([facility])- Primary Unspecified essential hypertension Type 2 diabetes mellitus with diabetic neuropathy, with long-term current use of insulin ([facility]) Gastroesophageal reflux disease, unspecified whether esophagitis present Vitamin D deficiency Type 2 diabetes mellitus with complication, without long-term current use of insulin ([facility]) Mixed hyperlipidemia ([facility]) Mixed hyperlipidemia Encounter for screening mammogram for malignant neoplasm of breast SANTO (obstructive sleep apnea) Obstructive sleep apnea (adult) (pediatric) COPD mixed type ([facility]) Anxiety and depression ([facility]) COVID Open wound Open wound(s) (multiple) of unspecified site(s), without mention of complication Morbid obesity with body mass index (BMI) of 40.0 to 49.9 ([facility]) COPD mixed type ([facility])- Primary Dysuria Atrial fibrillation, unspecified type ([facility]) Gastroesophageal reflux disease, unspecified whether esophagitis present Type 2 diabetes mellitus with complication, without long-term current use of insulin ([facility]) Obesity (BMI 30-39.9) Tobacco user Tobacco use disorder Anxiety and depression ([facility]) Dermatitis Contact dermatitis and other eczema, due to unspecified cause Type 2 diabetes mellitus with hyperglycemia ([facility])- Primary Primary hypertension ([facility]) Unspecified essential hypertension Edema of extremities Edema Type 2 diabetes mellitus without complication, with long-term current use of insulin Vitamin D deficiency Tobacco user Tobacco use disorder Dizziness and giddiness Atrial fibrillation, unspecified type ([facility]) COPD mixed type ([facility]) Open wound of buttock, [...] unspecified osteoporosis type, unspecified pathological fracture presence ([facility]) Open wound of buttock, unspecified laterality, initial encounter Type 2 diabetes mellitus without complication, with long-term current use of insulin Obesity (BMI 30-39.9) Tobacco user Tobacco use disorder Anxiety and depression ([facility]) Type 2 diabetes mellitus with diabetic neuropathy, with long-term current use of insulin ([facility]) COPD mixed type ([facility]) Diabetic polyneuropathy associated with type 2 diabetes mellitus ([facility]) Gastroesophageal reflux disease, unspecified whether esophagitis present Mixed hyperlipidemia ([facility]) Mixed hyperlipidemia Primary hypertension ([facility]) Unspecified essential hypertension Edema of extremities Edema Lung nodule, multiple Lymphadenopathy, generalized Vitamin D deficiency Oxygen dependent Dependence on supplemental oxygen Community acquired pneumonia, unspecified laterality COPD mixed type ([facility])- Primary SANTO (obstructive sleep apnea) Obstructive sleep apnea (adult) (pediatric) Lung nodule, multiple Community acquired pneumonia, unspecified laterality Primary hypertension ([facility]) Unspecified essential hypertension Atrial fibrillation, unspecified type ([facility]) Type 2 diabetes mellitus without complication, with long-term current use of insulin Tobacco user Tobacco use disorder Needs flu shot Need for prophylactic vaccination and inoculation against influenza Right wrist pain- Primary Pain in joint, forearm Obesity (BMI 30-39.9) 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 ([facility])- Primary COPD with acute exacerbation ([facility])- Primary Oxygen dependent Dependence on supplemental oxygen COPD mixed type ([facility]) Obesity (BMI 30-39.9) COVID- Primary Type 2 diabetes mellitus with diabetic polyneuropathy ([facility]) Type 2 diabetes mellitus with hyperglycemia ([facility]) 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 classified elsewhere ([facility]) 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 ([facility] COPD mixed type ([facility] Paroxysmal atrial fibrillation ([facility]) Atrial fibrillation Primary hypertension ([facility]) Unspecified essential hypertension Tobacco user Tobacco use disorder JORDAN (generalized anxiety disorder) ([facility])- Primary Generalized anxiety disorder SANTO (obstructive sleep apnea) Obstructive sleep apnea (adult) (pediatric) Type 2 diabetes mellitus with diabetic polyneuropathy, with long-term current use of insulin ([facility]) COPD mixed type ([facility]) Oxygen dependent Dependence on supplemental oxygen Paroxysmal atrial fibrillation ([facility]) Atrial fibrillation Primary hypertension ([facility]) Unspecified essential hypertension Gastroesophageal reflux disease, unspecified whether esophagitis present Obesity (BMI 30-39.9) Type 2 diabetes mellitus without complication, with long-term current use of insulin Anxiety and depression ([facility]) halfway (current) use of insulin ([facility]) Medical non-compliance Mild episode of recurrent major depressive disorder (HCC) ([facility]) Cigarette nicotine dependence without complication Encounter for screening mammogram for malignant neoplasm of breast Diabetic polyneuropathy associated with type 2 diabetes mellitus ([facility]) Mixed hyperlipidemia ([facility]) Mixed hyperlipidemia Edema of extremities Edema Abscess of left groin- Primary documented in this encounter [facility] HealthcareEvaluation note* Diagnosis Primary hypertension ([facility])- Primary Unspecified essential hypertension Type 2 diabetes mellitus with diabetic neuropathy, with long-term current use of insulin ([facility]) Gastroesophageal reflux disease, unspecified whether esophagitis present Vitamin D deficiency Type 2 diabetes mellitus with complication, without long-term current use of insulin ([facility]) Mixed hyperlipidemia ([facility]) Mixed hyperlipidemia Encounter for screening mammogram for malignant neoplasm of breast SANTO (obstructive sleep apnea) Obstructive sleep apnea (adult) (pediatric) COPD mixed type ([facility]) Anxiety and depression ([facility]) COVID Open wound Open wound(s) (multiple) of unspecified site(s), without mention of complication Morbid obesity with body mass index (BMI) of 40.0 to 49.9 ([facility]) COPD mixed type ([facility])- Primary Dysuria Atrial fibrillation, unspecified type ([facility]) Gastroesophageal reflux disease, unspecified whether esophagitis present Type 2 diabetes mellitus with complication, without long-term current use of insulin ([facility]) Obesity (BMI 30-39.9) Tobacco user Tobacco use disorder Anxiety and depression ([facility]) Dermatitis Contact dermatitis and other eczema, due to unspecified cause Type 2 diabetes mellitus with hyperglycemia ([facility])- Primary Primary hypertension ([facility]) Unspecified essential hypertension Edema of extremities Edema Type 2 diabetes mellitus without complication, with long-term current use of insulin Vitamin D deficiency Tobacco user Tobacco use disorder Dizziness and giddiness Atrial fibrillation, unspecified type ([facility]) COPD mixed type ([facility]) Open wound of buttock, [...] unspecified osteoporosis type, unspecified pathological fracture presence ([facility]) Open wound of buttock, unspecified laterality, initial encounter Type 2 diabetes mellitus without complication, with long-term current use of insulin Obesity (BMI 30-39.9) Tobacco user Tobacco use disorder Anxiety and depression ([facility]) Type 2 diabetes mellitus with diabetic neuropathy, with long-term current use of insulin ([facility]) COPD mixed type ([facility]) Diabetic polyneuropathy associated with type 2 diabetes mellitus ([facility]) Gastroesophageal reflux disease, unspecified whether esophagitis present Mixed hyperlipidemia ([facility]) Mixed hyperlipidemia Primary hypertension ([facility]) Unspecified essential hypertension Edema of extremities Edema Lung nodule, multiple Lymphadenopathy, generalized Vitamin D deficiency Oxygen dependent Dependence on supplemental oxygen Community acquired pneumonia, unspecified laterality COPD mixed type ([facility])- Primary SANTO (obstructive sleep apnea) Obstructive sleep apnea (adult) (pediatric) Lung nodule, multiple Community acquired pneumonia, unspecified laterality Primary hypertension ([facility]) Unspecified essential hypertension Atrial fibrillation, unspecified type ([facility]) Type 2 diabetes mellitus without complication, with long-term current use of insulin Tobacco user Tobacco use disorder Needs flu shot Need for prophylactic vaccination and inoculation against influenza Right wrist pain- Primary Pain in joint, forearm Obesity (BMI 30-39.9) 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 ([facility])- Primary COPD with acute exacerbation ([facility])- Primary Oxygen dependent Dependence on supplemental oxygen COPD mixed type ([facility]) Obesity (BMI 30-39.9) COVID- Primary Type 2 diabetes mellitus with diabetic polyneuropathy ([facility]) Type 2 diabetes mellitus with hyperglycemia ([facility]) 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 classified elsewhere ([facility]) halfway (current) use of insulin ([facility] COPD mixed type ([facility] Paroxysmal atrial fibrillation ([facility] Atrial fibrillation Primary hypertension ([facility]) Unspecified essential hypertension Tobacco user Tobacco use disorder JORDAN (generalized anxiety disorder) ([facility])- Primary Generalized anxiety disorder SANTO (obstructive sleep apnea) Obstructive sleep apnea (adult) (pediatric) Type 2 diabetes mellitus with diabetic polyneuropathy, with long-term current use of insulin ([facility]) COPD mixed type ([facility]) Oxygen dependent Dependence on supplemental oxygen Paroxysmal atrial fibrillation ([facility]) Atrial fibrillation Primary hypertension ([facility]) Unspecified essential hypertension Gastroesophageal reflux disease, unspecified whether esophagitis present Obesity (BMI 30-39.9) Type 2 diabetes mellitus without complication, with long-term current use of insulin Anxiety and depression ([facility]) 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 ([facility]) Medical non-compliance Mild episode of recurrent major depressive disorder (HCC) ([facility]) Cigarette nicotine dependence without complication Encounter for screening mammogram for malignant neoplasm of breast Diabetic polyneuropathy associated with type 2 diabetes mellitus ([facility]) Mixed hyperlipidemia ([facility]) Mixed hyperlipidemia Edema of extremities Edema Abscess of left groin documented in this encounter [facility] HealthcareEvaluation note* Diagnosis Primary hypertension ([facility])- Primary Unspecified essential hypertension Type 2 diabetes mellitus with diabetic neuropathy, with long-term current use of insulin ([facility]) Gastroesophageal reflux disease, unspecified whether esophagitis present Vitamin D deficiency Type 2 diabetes mellitus with complication, without long-term current use of insulin ([facility]) Mixed hyperlipidemia ([facility]) Mixed hyperlipidemia Encounter for screening mammogram for malignant neoplasm of breast SANTO (obstructive sleep apnea) Obstructive sleep apnea (adult) (pediatric) COPD mixed type ([facility]) Anxiety and depression ([facility]) COVID Open wound Open wound(s) (multiple) of unspecified site(s), without mention of complication Morbid obesity with body mass index (BMI) of 40.0 to 49.9 ([facility]) COPD mixed type ([facility])- Primary Dysuria Atrial fibrillation, unspecified type ([facility]) Gastroesophageal reflux disease, unspecified whether esophagitis present Type 2 diabetes mellitus with complication, without long-term current use of insulin ([facility]) Obesity (BMI 30-39.9) Tobacco user Tobacco use disorder Anxiety and depression ([facility]) Dermatitis Contact dermatitis and other eczema, due to unspecified cause Type 2 diabetes mellitus with hyperglycemia ([facility])- Primary Primary hypertension ([facility]) Unspecified essential hypertension Edema of extremities Edema Type 2 diabetes mellitus without complication, with long-term current use of insulin Vitamin D deficiency Tobacco user Tobacco use disorder Dizziness and giddiness Atrial fibrillation, unspecified type ([facility]) COPD mixed type ([facility]) Open wound of buttock, [...] unspecified osteoporosis type, unspecified pathological fracture presence ([facility]) Open wound of buttock, unspecified laterality, initial encounter Type 2 diabetes mellitus without complication, with long-term current use of insulin Obesity (BMI 30-39.9) Tobacco user Tobacco use disorder Anxiety and depression ([facility]) Type 2 diabetes mellitus with diabetic neuropathy, with long-term current use of insulin ([facility]) COPD mixed type ([facility]) Diabetic polyneuropathy associated with type 2 diabetes mellitus ([facility]) Gastroesophageal reflux disease, unspecified whether esophagitis present Mixed hyperlipidemia ([facility]) Mixed hyperlipidemia Primary hypertension ([facility]) Unspecified essential hypertension Edema of extremities Edema Lung nodule, multiple Lymphadenopathy, generalized Vitamin D deficiency Oxygen dependent Dependence on supplemental oxygen Community acquired pneumonia, unspecified laterality COPD mixed type ([facility])- Primary SANTO (obstructive sleep apnea) Obstructive sleep apnea (adult) (pediatric) Lung nodule, multiple Community acquired pneumonia, unspecified laterality Primary hypertension ([facility]) Unspecified essential hypertension Atrial fibrillation, unspecified type ([facility]) Type 2 diabetes mellitus without complication, with long-term current use of insulin Tobacco user Tobacco use disorder Needs flu shot Need for prophylactic vaccination and inoculation against influenza Right wrist pain- Primary Pain in joint, forearm Obesity (BMI 30-39.9) 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 ([facility] [facility] Primary COPD with acute exacerbation ([facility])- Primary Oxygen dependent Dependence on supplemental oxygen COPD mixed type ([facility]) Obesity (BMI 30-39.9) COVID- Primary Type 2 diabetes mellitus with diabetic polyneuropathy ([facility]) Type 2 diabetes mellitus with hyperglycemia ([facility]) 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 classified elsewhere ([facility]) halfway (current) use of insulin ([facility] COPD mixed type ([facility] Paroxysmal atrial fibrillation ([facility] Atrial fibrillation Primary hypertension ([facility]) Unspecified essential hypertension Tobacco user Tobacco use disorder JORDAN (generalized anxiety disorder) ([facility])- Primary Generalized anxiety disorder SANTO (obstructive sleep apnea) Obstructive sleep apnea (adult) (pediatric) Type 2 diabetes mellitus with diabetic polyneuropathy, with long-term current use of insulin ([facility]) COPD mixed type ([facility]) Oxygen dependent Dependence on supplemental oxygen Paroxysmal atrial fibrillation ([facility]) Atrial fibrillation Primary hypertension ([facility]) Unspecified essential hypertension Gastroesophageal reflux disease, unspecified whether esophagitis present Obesity (BMI 30-39.9) Type 2 diabetes mellitus without complication, with long-term current use of insulin Anxiety and depression ([facility]) halfway (current) use of insulin ([facility]) Medical non-compliance Mild episode of recurrent major depressive disorder (HCC) ([facility]) Cigarette nicotine dependence without complication Encounter for screening mammogram for malignant neoplasm of breast Diabetic polyneuropathy associated with type 2 diabetes mellitus ([facility]) Mixed hyperlipidemia (CMS/HCC) Mixed hyperlipidemia Edema of extremities Edema Abscess of left groin- Primary Primary hypertension ([facility]) Unspecified essential hypertension Type 2 diabetes mellitus without complication, with long-term current use of insulin Cigarette nicotine dependence without complication Encounter for screening mammogram for malignant neoplasm of breast Gill rash of groin Mild episode of recurrent major depressive disorder (HCC) ([facility]) documented in this encounter [facility] HealthcareEvaluation note* Diagnosis Primary hypertension ([facility])- Primary Unspecified essential hypertension Type 2 diabetes mellitus with diabetic neuropathy, with long-term current use of insulin ([facility]) Gastroesophageal reflux disease, unspecified whether esophagitis present Vitamin D deficiency Type 2 diabetes mellitus with complication, without long-term current use of insulin ([facility]) Mixed hyperlipidemia ([facility]) Mixed hyperlipidemia Encounter for screening mammogram for malignant neoplasm of breast SANTO (obstructive sleep apnea) Obstructive sleep apnea (adult) (pediatric) COPD mixed type ([facility]) Anxiety and depression ([facility]) COVID Open wound Open wound(s) (multiple) of unspecified site(s), without mention of complication Morbid obesity with body mass index (BMI) of 40.0 to 49.9 ([facility]) COPD mixed type ([facility]/H[facility])- Primary Dysuria Atrial fibrillation, unspecified type ([facility]) Gastroesophageal reflux disease, unspecified whether esophagitis present Type 2 diabetes mellitus with complication, without long-term current use of insulin ([facility]) Obesity (BMI 30-39.9) Tobacco user Tobacco use disorder Anxiety and depression ([facility]) Dermatitis Contact dermatitis and other eczema, due to unspecified cause Type 2 diabetes mellitus with hyperglycemia ([facility])- Primary Primary hypertension ([facility]) Unspecified essential hypertension Edema of extremities Edema Type 2 diabetes mellitus without complication, with long-term current use of insulin Vitamin D deficiency Tobacco user Tobacco use disorder Dizziness and giddiness Atrial fibrillation, unspecified type ([facility]) COPD mixed type ([facility]) Open wound of buttock, [...] unspecified osteoporosis type, unspecified pathological fracture presence ([facility]) Open wound of buttock, unspecified laterality, initial encounter Type 2 diabetes mellitus without complication, with long-term current use of insulin Obesity (BMI 30-39.9) Tobacco user Tobacco use disorder Anxiety and depression ([facility]) Type 2 diabetes mellitus with diabetic neuropathy, with long-term current use of insulin ([facility]) COPD mixed type ([facility]) Diabetic polyneuropathy associated with type 2 diabetes mellitus ([facility]) Gastroesophageal reflux disease, unspecified whether esophagitis present Mixed hyperlipidemia ([facility]) Mixed hyperlipidemia Primary hypertension ([facility]) Unspecified essential hypertension Edema of extremities Edema Lung nodule, multiple Lymphadenopathy, generalized Vitamin D deficiency Oxygen dependent Dependence on supplemental oxygen Community acquired pneumonia, unspecified laterality COPD mixed type ([facility])- Primary SANTO (obstructive sleep apnea) Obstructive sleep apnea (adult) (pediatric) Lung nodule, multiple Community acquired pneumonia, unspecified laterality Primary hypertension ([facility]) Unspecified essential hypertension Atrial fibrillation, unspecified type ([facility]) Type 2 diabetes mellitus without complication, with long-term current use of insulin Tobacco user Tobacco use disorder Needs flu shot Need for prophylactic vaccination and inoculation against influenza Right wrist pain- Primary Pain in joint, forearm Obesity (BMI 30-39.9) 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 ([facility])- Primary COPD with acute exacerbation ([facility])- Primary Oxygen dependent Dependence on supplemental oxygen COPD mixed type ([facility]) Obesity (BMI 30-39.9) COVID- Primary Type 2 diabetes mellitus with diabetic polyneuropathy ([facility]) Type 2 diabetes mellitus with hyperglycemia ([facility]) 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 classified elsewhere ([facility]) 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 ([facility] COPD mixed type ([facility] Paroxysmal atrial fibrillation ([facility] Atrial fibrillation Primary hypertension ([facility]) Unspecified essential hypertension Tobacco user Tobacco use disorder JORDAN (generalized anxiety disorder) ([facility])- Primary Generalized anxiety disorder SANTO (obstructive sleep apnea) Obstructive sleep apnea (adult) (pediatric) Type 2 diabetes mellitus with diabetic polyneuropathy, with long-term current use of insulin ([facility]) COPD mixed type ([facility]) Oxygen dependent Dependence on supplemental oxygen Paroxysmal atrial fibrillation ([facility]) Atrial fibrillation Primary hypertension ([facility]) Unspecified essential hypertension Gastroesophageal reflux disease, unspecified whether esophagitis present Obesity (BMI 30-39.9) Type 2 diabetes mellitus without complication, with long-term current use of insulin Anxiety and depression ([facility]) halfway (current) use of insulin ([facility]) Medical non-compliance Mild episode of recurrent major depressive disorder (HCC) ([facility]) Cigarette nicotine dependence without complication Encounter for screening mammogram for malignant neoplasm of breast Diabetic polyneuropathy associated with type 2 diabetes mellitus ([facility]) Mixed hyperlipidemia ([facility]) Mixed hyperlipidemia Edema of extremities Edema Abscess of left groin- Primary Primary hypertension ([facility]) Unspecified essential hypertension Type 2 diabetes mellitus without complication, with long-term current use of insulin Cigarette nicotine dependence without complication Encounter for screening mammogram for malignant neoplasm of breast Gill rash of groin Mild episode of recurrent major depressive disorder (HCC) ([facility]) Type 2 diabetes mellitus without complication, with long-term current use of insulin- Primary Obesity (BMI 30-39.9) Abscess of left groin documented in this encounter [facility] HealthcareEvaluation note* Diagnosis Primary hypertension- Primary Unspecified essential hypertension Type 2 diabetes mellitus with diabetic neuropathy, with long-term current use of insulin ([facility]) Gastroesophageal reflux disease, unspecified whether esophagitis present Vitamin D deficiency Type 2 diabetes mellitus with complication, without long-term current use of insulin ([facility]) Mixed hyperlipidemia Mixed hyperlipidemia Encounter for screening mammogram for malignant neoplasm of breast SANTO (obstructive sleep apnea) Obstructive sleep apnea (adult) (pediatric) COPD mixed type ([facility]) Anxiety and depression COVID Open wound Open wound(s) (multiple) of unspecified site(s), without mention of complication Morbid obesity with body mass index (BMI) of 40.0 to 49.9 ([facility]) COPD mixed type (HCC)- Primary Dysuria Atrial fibrillation, unspecified type (HCC) Gastroesophageal reflux disease, unspecified whether esophagitis present Type 2 diabetes mellitus with complication, without long-term current use of insulin ([facility]) Obesity (BMI 30-39.9) Tobacco user Tobacco use disorder Anxiety and depression Dermatitis Contact dermatitis and other eczema, due to unspecified cause Type 2 diabetes mellitus with hyperglycemia ([facility])- Primary Primary hypertension Unspecified essential hypertension Edema of extremities Edema Type 2 diabetes mellitus without complication, with long-term current use of insulin ([facility]) Vitamin D deficiency Tobacco user Tobacco use disorder Dizziness and giddiness Atrial fibrillation, unspecified type (HCC) COPD mixed type (HCC) Open wound of buttock, unspecified laterality, initial encounter- Primary Type 2 diabetes mellitus without complication, with long-term current use of insulin ([facility]) Obesity (BMI 30-39.9) Dizziness and giddiness Viral upper respiratory tract infection- Primary Acute upper respiratory infections of unspecified site Tobacco user Tobacco use disorder Open wound Open wound(s) (multiple) of unspecified site(s), without mention of complication Obesity (BMI 30-39.9) Type 2 diabetes mellitus without complication, with long-term current use of insulin ([facility]) Encounter for wellness examination- Primary Osteoporosis, unspecified osteoporosis type, unspecified pathological fracture presence Open wound of buttock, unspecified laterality, initial encounter Type 2 diabetes mellitus without complication, with long-term current use of insulin ([facility]) Obesity (BMI 30-39.9) Tobacco user Tobacco use disorder Anxiety and depression Type 2 diabetes mellitus with diabetic neuropathy, with long-term current use of insulin ([facility]) COPD mixed type (HCC) Diabetic polyneuropathy associated with type 2 diabetes mellitus ([facility]) Gastroesophageal reflux disease, unspecified [...] complication, with long-term current use of insulin ([facility]) Tobacco user Tobacco use disorder Needs flu shot Need for prophylactic vaccination and inoculation against influenza Right wrist pain- Primary Pain in joint, forearm Obesity (BMI 30-39.9) 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 ([facility])- Primary COPD with acute exacerbation ([facility])- Primary Oxygen dependent Dependence on supplemental oxygen COPD mixed type (HCC) Obesity (BMI 30-39.9) COVID- Primary Type 2 diabetes mellitus with diabetic polyneuropathy ([facility]) Type 2 diabetes mellitus with hyperglycemia ([facility]) 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 classified elsewhere ([facility]) 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 (HCC) COPD mixed type (HCC) Paroxysmal atrial fibrillation (HCC) Atrial fibrillation Primary hypertension Unspecified essential hypertension Tobacco user Tobacco use disorder JORDAN (generalized anxiety disorder)- Primary Generalized anxiety disorder SANTO (obstructive sleep apnea) Obstructive sleep apnea (adult) (pediatric) Type 2 diabetes mellitus with diabetic polyneuropathy, with long-term current use of insulin ([facility]) COPD mixed type (HCC) Oxygen dependent Dependence on supplemental oxygen Paroxysmal atrial fibrillation (HCC) Atrial fibrillation Primary hypertension Unspecified essential hypertension Gastroesophageal reflux disease, unspecified whether esophagitis present Obesity (BMI 30-39.9) Type 2 diabetes mellitus without complication, with long-term current use of insulin ([facility]) Anxiety and depression 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 ([facility]) Medical non-compliance Mild episode of recurrent major depressive disorder Cigarette nicotine dependence without complication Encounter for screening mammogram for malignant neoplasm of breast Diabetic polyneuropathy associated with type 2 diabetes mellitus ([facility]) Mixed hyperlipidemia Mixed hyperlipidemia Edema of extremities Edema Abscess of left groin- Primary Primary hypertension Unspecified essential hypertension Type 2 diabetes mellitus without complication, with long-term current use of insulin ([facility]) Cigarette nicotine dependence without complication Encounter for screening mammogram for malignant neoplasm of breast Gill rash of groin Mild episode of recurrent major depressive disorder COPD mixed type ([facility]) documented in this encounter [facility] HealthcareEvaluation note* Diagnosis Primary hypertension- Primary Unspecified essential hypertension Type 2 diabetes mellitus with diabetic neuropathy, with long-term current use of insulin ([facility]) Gastroesophageal reflux disease, unspecified whether esophagitis present Vitamin D deficiency Type 2 diabetes mellitus with complication, without long-term current use of insulin ([facility]) Mixed hyperlipidemia Mixed hyperlipidemia Encounter for screening mammogram for malignant neoplasm of breast SANTO (obstructive sleep apnea) Obstructive sleep apnea (adult) (pediatric) COPD mixed type (HCC) Anxiety and depression COVID Open wound Open wound(s) (multiple) of unspecified site(s), without mention of complication Morbid obesity with body mass index (BMI) of 40.0 to 49.9 ([facility]) COPD mixed type (HCC)- Primary Dysuria Atrial fibrillation, unspecified type (HCC) Gastroesophageal reflux disease, unspecified whether esophagitis present Type 2 diabetes mellitus with complication, without long-term current use of insulin ([facility]) Obesity (BMI 30-39.9) Tobacco [...] complication, with long-term current use of insulin ([facility]) Obesity (BMI 30-39.9) Dizziness and giddiness Viral upper respiratory tract infection- Primary Acute upper respiratory infections of unspecified site Tobacco user Tobacco use disorder Open wound Open wound(s) (multiple) of unspecified site(s), without mention of complication Obesity (BMI 30-39.9) Type 2 diabetes mellitus without complication, with long-term current use of insulin ([facility]) Encounter for wellness examination- Primary Osteoporosis, unspecified osteoporosis type, unspecified pathological fracture presence Open wound of buttock, unspecified laterality, initial encounter Type 2 diabetes mellitus without complication, with long-term current use of insulin ([facility]) Obesity (BMI 30-39.9) Tobacco [...] (HCC) 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 classified elsewhere ([facility]) 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 ([facility]) COPD mixed type (HCC) Paroxysmal atrial fibrillation (HCC) Atrial fibrillation Primary hypertension Unspecified essential hypertension Tobacco user Tobacco use disorder JORDAN (generalized anxiety disorder)- Primary Generalized anxiety disorder SANTO (obstructive sleep apnea) Obstructive sleep apnea (adult) (pediatric) Type 2 diabetes mellitus with diabetic polyneuropathy, with long-term current use of insulin ([facility]) COPD mixed type ([facility]) Oxygen dependent Dependence on supplemental oxygen Paroxysmal atrial fibrillation ([facility]) Atrial fibrillation Primary hypertension Unspecified essential hypertension Gastroesophageal reflux disease, unspecified whether esophagitis present Obesity (BMI 30-39.9) Type 2 diabetes mellitus without complication, with long-term current use of insulin ([facility]) Anxiety and depression halfway (current) use of insulin ([facility]) Medical non-compliance Mild episode of recurrent major depressive disorder Cigarette nicotine dependence without complication Encounter for screening mammogram for malignant neoplasm of breast Diabetic polyneuropathy associated with type 2 diabetes mellitus ([facility]) Mixed hyperlipidemia Mixed hyperlipidemia Edema of extremities Edema Abscess of left groin- Primary Primary hypertension Unspecified essential hypertension Type 2 diabetes mellitus without complication, with long-term current use of insulin ([facility]) Cigarette nicotine dependence without complication Encounter for screening mammogram for malignant neoplasm of breast Gill rash of groin Mild episode of recurrent major depressive disorder Primary hypertension- Primary Unspecified essential hypertension documented in this encounter [facility] HealthcareEvaluation note* Diagnosis Primary hypertension- Primary Unspecified essential hypertension Type 2 diabetes mellitus with diabetic neuropathy, with long-term current use of insulin ([facility]) Gastroesophageal reflux disease, unspecified whether esophagitis present Vitamin D deficiency Type 2 diabetes mellitus with complication, without long-term current use of insulin ([facility]) Mixed hyperlipidemia Mixed hyperlipidemia Encounter for screening mammogram for malignant neoplasm of breast SANTO (obstructive sleep apnea) Obstructive sleep apnea (adult) (pediatric) COPD mixed type ([facility]) Anxiety and depression COVID Open wound Open wound(s) (multiple) of unspecified site(s), without mention of complication Morbid obesity with body mass index (BMI) of 40.0 to 49.9 ([facility]) COPD mixed type (HCC)- Primary Dysuria Atrial fibrillation, unspecified type ([facility]) Gastroesophageal reflux disease, unspecified whether esophagitis present Type 2 diabetes mellitus with complication, without long-term current use of insulin ([facility]) Obesity (BMI 30-39.9) Tobacco [...] complication, with long-term current use of insulin ([facility]) Encounter for wellness examination- Primary Osteoporosis, unspecified osteoporosis type, unspecified pathological fracture presence Open wound of buttock, unspecified laterality, initial encounter Type 2 diabetes mellitus without complication, with long-term current use of insulin ([facility]) Obesity (BMI 30-39.9) Tobacco [...] complication, with long-term current use of insulin ([facility]) Tobacco user Tobacco use disorder Needs [...] (HCC) 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 classified elsewhere ([facility]) 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 (HCC) COPD mixed type (HCC) Paroxysmal atrial fibrillation (HCC) Atrial fibrillation Primary hypertension Unspecified essential hypertension Tobacco user Tobacco use disorder JORDAN (generalized anxiety disorder)- Primary Generalized anxiety disorder SANTO (obstructive sleep apnea) Obstructive sleep apnea (adult) (pediatric) Type 2 diabetes mellitus with diabetic polyneuropathy, with long-term current use of insulin ([facility]) COPD mixed type (HCC) Oxygen dependent Dependence on supplemental oxygen Paroxysmal atrial fibrillation (HCC) Atrial fibrillation Primary hypertension Unspecified essential hypertension Gastroesophageal reflux disease, unspecified whether esophagitis present Obesity (BMI 30-39.9) Type 2 diabetes mellitus without complication, with long-term current use of insulin ([facility]) Anxiety and depression 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 ([facility]) Medical non-compliance Mild episode of recurrent major depressive disorder Cigarette nicotine dependence without complication Encounter for screening mammogram for malignant neoplasm of breast Diabetic polyneuropathy associated with type 2 diabetes mellitus ([facility]) Mixed hyperlipidemia Mixed hyperlipidemia Edema of extremities Edema Abscess of left groin- Primary Primary hypertension Unspecified essential hypertension Type 2 diabetes mellitus without complication, with long-term current use of insulin ([facility]) Cigarette nicotine dependence without complication Encounter for screening mammogram for malignant neoplasm of breast Gill rash of groin Mild episode of recurrent major depressive disorder Gill infection of genital region- Primary Type 2 diabetes mellitus without complication, with long-term current use of insulin ([facility]) Gill rash of groin Abscess of left groin documented in this encounter [facility] HealthcareEvaluation note* Diagnosis Primary hypertension- Primary Unspecified essential hypertension Type 2 diabetes mellitus with diabetic neuropathy, with long-term current use of insulin ([facility]) Gastroesophageal reflux disease, unspecified whether esophagitis present Vitamin D deficiency Type 2 diabetes mellitus with complication, without long-term current use of insulin ([facility]) Mixed hyperlipidemia Mixed hyperlipidemia Encounter for screening mammogram for malignant neoplasm of breast SANTO (obstructive sleep apnea) Obstructive sleep apnea (adult) (pediatric) COPD mixed type ([facility]) Anxiety and depression COVID Open wound Open wound(s) (multiple) of unspecified site(s), without mention of complication Morbid obesity with body mass index (BMI) of 40.0 to 49.9 ([facility]) COPD mixed type ([facility])- Primary Dysuria Atrial fibrillation, unspecified type (HCC) Gastroesophageal reflux disease, unspecified whether esophagitis present Type 2 diabetes mellitus with complication, without long-term current use of insulin ([facility]) Obesity (BMI 30-39.9) Tobacco user Tobacco use disorder Anxiety and depression Dermatitis Contact dermatitis and other eczema, due to unspecified cause Type 2 diabetes mellitus with hyperglycemia ([facility])- Primary Primary hypertension Unspecified essential hypertension Edema of extremities Edema Type 2 diabetes mellitus without complication, with long-term current use of insulin ([facility]) Vitamin D deficiency Tobacco user Tobacco use disorder Dizziness and giddiness Atrial fibrillation, unspecified type (HCC) COPD mixed type (HCC) Open wound of buttock, unspecified laterality, initial encounter- Primary Type 2 diabetes mellitus without complication, with long-term current use of insulin ([facility]) Obesity (BMI 30-39.9) Dizziness and giddiness Viral upper respiratory tract infection- Primary Acute upper respiratory infections of unspecified site Tobacco user Tobacco use disorder Open wound Open wound(s) (multiple) of unspecified site(s), without mention of complication Obesity (BMI 30-39.9) Type 2 diabetes mellitus without complication, with long-term current use of insulin ([facility]) Encounter for wellness examination- Primary Osteoporosis, unspecified osteoporosis type, unspecified pathological fracture presence Open wound of buttock, unspecified laterality, initial encounter Type 2 diabetes mellitus without complication, with long-term current use of insulin ([facility]) Obesity (BMI 30-39.9) Tobacco user Tobacco use disorder Anxiety and depression Type 2 diabetes mellitus with diabetic neuropathy, with long-term current use of insulin ([facility]) COPD mixed type (HCC) Diabetic polyneuropathy associated [...] complication, with long-term current use of insulin ([facility]) Tobacco user Tobacco use disorder Needs [...] 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 classified elsewhere (HCC) halfway (current) use of insulin (HCC) COPD mixed [...] use of insulin (HCC) Anxiety and depression 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 ([facility]) Medical non-compliance Mild episode of recurrent major [...] complication, without long-term current use of insulin ([facility]) Mixed hyperlipidemia Mixed hyperlipidemia Encounter for screening mammogram for malignant neoplasm of breast SANTO (obstructive sleep apnea) Obstructive sleep apnea (adult) (pediatric) COPD mixed type ([facility]) Anxiety and depression COVID Open wound Open wound(s) (multiple) of unspecified site(s), without mention of complication Morbid obesity with body mass index (BMI) of 40.0 to 49.9 ([facility]) COPD mixed type (HCC)- Primary Dysuria Atrial fibrillation, unspecified type ([facility]) Gastroesophageal reflux disease, unspecified whether esophagitis present Type 2 diabetes mellitus with complication, without long-term current use of insulin ([facility]) Obesity (BMI 30-39.9) Tobacco user Tobacco use disorder Anxiety and depression Dermatitis Contact dermatitis and other eczema, due to unspecified cause Type 2 diabetes mellitus with hyperglycemia ([facility])- Primary Primary hypertension Unspecified essential hypertension Edema of extremities Edema Type 2 diabetes mellitus without complication, with long-term current use of insulin ([facility]) Vitamin D deficiency Tobacco user Tobacco use disorder Dizziness and giddiness Atrial fibrillation, unspecified type ([facility]) COPD mixed type ([facility]) Open wound of buttock, unspecified laterality, initial encounter- Primary Type 2 diabetes mellitus without complication, with long-term current use of insulin ([facility]) Obesity (BMI 30-39.9) Dizziness and giddiness Viral upper respiratory tract infection- Primary Acute upper respiratory infections of unspecified site Tobacco user Tobacco use disorder Open wound Open wound(s) (multiple) of unspecified site(s), without mention of complication Obesity (BMI 30-39.9) Type 2 diabetes mellitus without complication, with long-term current use of insulin ([facility]) Encounter for wellness examination- Primary Osteoporosis, unspecified osteoporosis type, unspecified pathological fracture presence Open wound of buttock, unspecified laterality, initial encounter Type 2 diabetes mellitus without complication, with long-term current use of insulin ([facility]) Obesity (BMI 30-39.9) Tobacco user Tobacco use disorder Anxiety and depression Type 2 diabetes mellitus with diabetic neuropathy, with long-term current use of insulin ([facility]) COPD mixed type ([facility]) Diabetic polyneuropathy associated with type 2 diabetes mellitus ([facility]) Gastroesophageal reflux disease, unspecified [...] Type 2 diabetes mellitus with diabetic polyneuropathy ([facility]) Type 2 diabetes mellitus with hyperglycemia ([facility]) 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 classified elsewhere ([facility]) halfway (current) use of insulin (HCC) COPD mixed type (HCC) Paroxysmal atrial fibrillation (HCC) Atrial fibrillation Primary hypertension Unspecified essential hypertension Tobacco user Tobacco use disorder JORDAN (generalized anxiety disorder)- Primary Generalized anxiety disorder SANTO (obstructive sleep apnea) Obstructive sleep apnea (adult) (pediatric) Type 2 diabetes mellitus with diabetic polyneuropathy, with long-term current use of insulin ([facility]) COPD mixed type (HCC) Oxygen dependent Dependence on supplemental oxygen Paroxysmal atrial fibrillation (HCC) Atrial fibrillation Primary hypertension Unspecified essential hypertension Gastroesophageal reflux disease, unspecified whether esophagitis present Obesity (BMI 30-39.9) Type 2 diabetes mellitus without complication, with long-term current use of insulin ([facility]) Anxiety and depression halfway (current) use of insulin ([facility]) Medical non-compliance Mild episode of recurrent major depressive disorder Cigarette nicotine dependence without complication Encounter for screening mammogram for malignant neoplasm of breast Diabetic polyneuropathy associated with type 2 diabetes mellitus ([facility]) Mixed hyperlipidemia Mixed hyperlipidemia Edema of extremities Edema Abscess of left groin- Primary Primary hypertension Unspecified essential hypertension Type 2 diabetes mellitus without complication, with long-term current use of insulin ([facility]) Cigarette nicotine dependence without complication Encounter for screening mammogram for malignant neoplasm of breast Gill rash of groin Mild episode of recurrent major depressive disorder Gill infection of genital region- Primary Type 2 diabetes mellitus without complication, with long-term current use of insulin ([facility]) Gill rash of groin Abscess of left groin Type 2 diabetes mellitus without complication, with long-term current use of insulin ([facility])- Primary Gill rash of groin Cigarette nicotine dependence without complication Urge and stress incontinence Mixed incontinence urge and stress (male)(female) Primary hypertension Unspecified essential hypertension Paroxysmal atrial fibrillation (HCC) Atrial fibrillation Medical non-compliance Mild episode of recurrent major depressive disorder documented in this encounter [facility] HealthcareEvaluation note* Diagnosis Primary hypertension- Primary Unspecified essential hypertension Type 2 diabetes mellitus with diabetic neuropathy, with long-term current use of insulin ([facility]) Gastroesophageal reflux disease, unspecified whether esophagitis present Vitamin D deficiency Type 2 diabetes mellitus with complication, without long-term current use of insulin ([facility]) Mixed hyperlipidemia Mixed hyperlipidemia Encounter for screening mammogram for malignant neoplasm of breast SANTO (obstructive sleep apnea) Obstructive sleep apnea (adult) (pediatric) COPD mixed type ([facility]) Anxiety and depression COVID Open wound Open wound(s) (multiple) of unspecified site(s), without mention of complication Morbid obesity with body mass index (BMI) of 40.0 to 49.9 ([facility]) COPD mixed type ([facility])- Primary Dysuria Atrial fibrillation, unspecified type ([facility]) Gastroesophageal reflux disease, unspecified whether esophagitis present Type 2 diabetes mellitus with complication, without long-term current use of insulin ([facility]) Obesity (BMI 30-39.9) Tobacco user Tobacco use disorder Anxiety and depression Dermatitis Contact dermatitis and other eczema, due to unspecified cause Type 2 diabetes mellitus with hyperglycemia ([facility])- Primary Primary hypertension Unspecified essential hypertension Edema of extremities Edema Type 2 diabetes mellitus without complication, with long-term current use of insulin ([facility]) Vitamin D deficiency Tobacco user Tobacco use disorder Dizziness and giddiness Atrial fibrillation, unspecified type ([facility]) COPD mixed type ([facility]) Open wound of buttock, unspecified laterality, initial encounter- Primary Type 2 diabetes mellitus without complication, with long-term current use of insulin ([facility]) Obesity (BMI 30-39.9) Dizziness and giddiness Viral upper respiratory tract infection- Primary Acute upper respiratory infections of unspecified site Tobacco user Tobacco use disorder Open wound Open wound(s) (multiple) of unspecified site(s), without mention of complication Obesity (BMI 30-39.9) Type 2 diabetes mellitus without complication, with long-term current use of insulin ([facility]) Encounter for wellness examination- Primary Osteoporosis, [...] complication, with long-term current use of insulin ([facility]) Tobacco user Tobacco use disorder Needs flu shot Need for prophylactic vaccination and inoculation against influenza Right wrist pain- Primary Pain in joint, forearm Obesity (BMI 30-39.9) 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 ([facility])- Primary COPD with acute exacerbation ([facility])- Primary Oxygen dependent Dependence on supplemental oxygen COPD mixed type (HCC) Obesity (BMI 30-39.9) COVID- Primary Type 2 diabetes mellitus with diabetic polyneuropathy ([facility]) Type 2 diabetes mellitus with hyperglycemia ([facility]) 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 classified elsewhere ([facility]) halfway (current) use of insulin (HCC) COPD mixed [...] use of insulin (HCC) Anxiety and depression halfway (current) use of insulin ([facility]) Medical non-compliance Mild episode of recurrent major [...] 1 cm to 4 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 ([facility]) Vitamin D deficiency- Primary Primary hypertension Unspecified essential hypertension Edema of extremities Edema COPD mixed type (HCC) Type 2 diabetes mellitus with diabetic neuropathy, with long-term current use of insulin ([facility]) documented in this encounter [facility]ative)* Consultation (Routine) - Pending Review Specialty Diagnoses / Procedures Referred By Darcie joshua Referred To Contact Wound Care Diagnoses Open wound Type 2 diabetes mellitus without complication, with long-term current use of insulin ([facility]) Procedures ND OFFICE/OUTPATIENT NEW HIGH MDM 60 MINUTES Maira Rush NP [address] [place] [address] Referral ID Status Reason Start Date Expiration Date Visits Requested Visits Authorized [id number] Pending Review Specialty Services Required 03/11/2024 09/07/2024 1 1 Scheduling Instructions Please call [facility] and schedule pt with their [...] Referred To Contact Diagnoses COPD mixed type ([facility]/HCC) Maira Rush NP [address] [place] [address] Referral ID Status Reason Start Date Expiration Date V isits Requested Visits Authorized [id number] Pending Review 1 1 Additional Source Comments INFORMATION SOURCE (unrecogn ized section and content) DATE CREATED AUTHOR 10/06/2018 [facility] DATE CREATED AUTHOR AUTHOR'S ORGANIZ ATION 10/09/2022 [facility] DATE CREATED AUTHOR AUTHOR'S ORGANIZ ATION 01/25/2024 [facility] DATE CREATED AUTHOR AUTHOR'S ORGANIZ ATION 02/14/2024 [facility] DATE CREATED AUTHOR AUTHOR'S ORGANIZ ATION 11/02/2024 [facility] DATE CREATED AUTHOR AUTHOR'S ORGANIZ ATION 01/10/2025 [facility] EPIC DATE CREATED AUTHOR AUTHOR'S ORGANIZ ATION 01/20/2025 [facility] Care Teams (unrecognized sec tion and content) Solution Engineer Relationship Specialty Start Date End Date Brandon Mcfarlane MD [address] [place] [address] PCP - General Family Medicine 06/26/23 Maira Rush NP [address] [place] [address] Referring Physician Nurse Practitioner 12/17/22 Solution Engineer Relationship Specialty Start Date End Date Brandon Mcfarlane MD [address] [place] [address] PCP - General Family Medicine 06/26/23 Maira Rush NP [address] [place] [phone] Referring Physician Nurse Practitioner 12/17/22 Solution Engineer Relationship Specialty Start Date End Date Brandon Mcfarlane MD [address] [place] [address] PCP - General Family Medicine 06/26/23 Maira Rush NP [address] [place] [address] Referring Physician Nurse Practitioner 12/17/22 Solution Engineer Relationship Specialty Start Date End Date Brandon Mcfarlane MD [address] [place] [phone] PCP - General Family Medicine 06/26/23 Maira Rush NP [address] [place] [address] Referring Physician Nurse Practitioner 12/17/22 Solution Engineer Relationship Specialty Start Date End Date Brandon Mcfarlane MD [address] [place] [address] PCP - General Family Medicine 06/26/23 Maira Rush NP [address] [place] [address] Referring Physician Nurse Practitioner 12/17/22 Solution Engineer Relationship Specialty Start Date End Date Brandon Mcfarlane MD [address] [place] [address] PCP - General Family Medicine 06/26/23 Maira Rush NP [address] [place] [address] Referring Physician Nurse Practitioner 12/17/22 Solution Engineer Relationship Specialty Start Date End Date Brandon Mcfarlane MD [address] [place] [address] PCP - General Family Medicine 06/26/23 Maira Rush NP [address] [place] [address] Referring Physician Nurse Practitioner 12/17/22 Solution Engineer Relationship Specialty Start Date End Date Brandon Mcfarlane MD [address] [place] [address] PCP - General Family Medicine 06/26/23 Maira Rush NP [address] [place] [address] Referring Physician Nurse Practitioner 12/17/22 Solution Engineer Relationship Specialty Start Date End Date Brandon Mcfarlane MD [address] [place] [address] PCP - General Family Medicine 06/26/23 Maira Rush NP [address] [place] [address] Referring Physician Nurse Practitioner 12/17/22 Solution Engineer Relationship Specialty Start Date End Date Brandon Mcfarlane MD [address] [place] [address] PCP - General Family Medicine 06/26/23 Maira Rush NP [address] [place] [address] Referring Physician Nurse Practitioner 12/17/22 Solution Engineer Relationship Specialty Start Date End Date Brandon Mcfarlane MD [address] [place] [address] PCP - General Family Medicine 06/26/23 Maira Rush NP [address] [place] [address] Referring Physician Nurse Practitioner 12/17/22 Solution Engineer Relationship Specialty Start Date End Date Brandon Mcfarlane MD [address] [place] [address] PCP - General Family Medicine 06/26/23 Maira Rush NP [address] [place] [address] Referring Physician Nurse Practitioner 12/17/22 Solution Engineer Relationship Specialty Start Date End Date Brandon Mcfarlane MD [address] [place] [address] PCP - General Family Medicine 06/26/23 Maira Rush NP [address] [place] [address] Referring Physician Nurse Practitioner 12/17/22 Solution Engineer Relationship Specialty Start Date End Date Brandon Mcfarlane MD [address] [place] [address] PCP - General Family Medicine 06/26/23 Maira Rush NP [address] [place] [address] Referring Physician Nurse Practitioner 12/17/22 Solution Engineer Relationship Specialty Start Date End Date Brandon Mcfarlane MD [address] [place] [address] PCP - General Family Medicine 06/26/23 Maira Rush NP [address] [place] [address] Referring Physician Nurse Practitioner 12/17/22 Solution Engineer Relationship Specialty Start Date End Date Brandon Mcfarlane MD [address] [place] [address] PCP - General Family Medicine 06/26/23 Maiar Rush NP [address] [place] [address] Referring Physician Nurse Practitioner 12/17/22 Solution Engineer Relationship Specialty Start Date End Date Brandon Mcfarlane MD [address] [place] [address] PCP - General Family Medicine 06/26/23 Maira Rush NP [address] [place] [address] Referring Physician Nurse Practitioner 12/17/22 Solution Engineer Relationship Specialty Start Date End Date Brandon Mcfarlane MD [address] [place] [address] PCP - General Family Medicine 06/26/23 Maira Rush NP [address] [place] [address] Referring Physician Nurse Practitioner 12/17/22 Solution Engineer Relationship Specialty Start Date End Date Brandon Mcfarlane MD [address] [place] [address] PCP - General Family Medicine 06/26/23 Maira Rush NP [address] [place] [address] Referring Physician Nurse Practitioner 12/17/22 Solution Engineer Relationship Specialty Start Date End Date Brandon Mcfarlane MD [address] [place] [address] PCP - General Family Medicine 06/26/23 Maira Rush NP [address] [place] [address] Referring Physician Nurse Practitioner 12/17/22 Solution Engineer Relationship Specialty Start Date End Date Brandon Mcfarlane MD [address] [place] [address] PCP - General Family Medicine 06/26/23 Maira Rush NP [address] [place] [address] Referring Physician Nurse Practitioner 12/17/22 Solution Engineer Relationship Specialty Start Date End Date Brandon Mcfarlane MD [address] [place] [address] PCP - General Family Medicine 06/26/23 Maira Rush NP [address] [place] [address] Referring Physician Nurse Practitioner 12/17/22 Solution Engineer Relationship Specialty Start Date End Date Brandon Mcfarlane MD [address] [place] [address] PCP - General Family Medicine 06/26/23 Maira Rush NP [address] [place] [address] Referring Physician Nurse Practitioner 12/17/22 Solution Engineer Relationship Specialty Start Date End Date Brandon Mcfarlane MD [address] [place] [address] PCP - General Family Medicine 06/26/23 Maira Rush NP [address] [place] [address] Referring Physician Nurse Practitioner 12/17/22 Solution Engineer Relationship Specialty Start Date End Date Brandon Mcfarlane MD [address] [place] [address] PCP - General Family Medicine 06/26/23 Maira Rush NP [address] [place] [address] Referring Physician Nurse Practitioner 12/17/22 Solution Engineer Relationship Specialty Start Date End Date Brandon Mcfarlane MD [address] [place] [address] PCP - General Family Medicine 06/26/23 Maira Rush NP [address] [place] [address] Referring Physician Nurse Practitioner 12/17/22 Solution Engineer Relationship Specialty Start Date End Date Brandon Mcfarlane MD [address] [place] [address] PCP - General Family Medicine 06/26/23 Maira Rush NP [address] [place] [address] Referring Physician Nurse Practitioner 12/17/22 Solution Engineer Relationship Specialty Start Date End Date Brandon Mcfarlane MD [address] [place] [address] PCP - General Family Medicine 06/26/23 Maira Rush NP [address] [place] [address] Referring Physician Nurse Practitioner 12/17/22 Solution Engineer Relationship Specialty Start Date End Date Brandon Mcfarlane MD [address] [place] [address] PCP - General Family [facility] 06/26/23 Maira Rush NP [address] [place] [address] Referring Physician Nurse Practitioner 12/17/22 Solution Engineer Relationship Specialty Start Date End Date Brandon Mcfarlane MD [address] [place] [address] PCP - [facility] 06/26/23 Maira Rush NP [address] [place] [address] [facility] 06/03/24 Maira Rush NP [address] [place] [address] Referring Physician Nurse Practitioner 12/17/22 Solution Engineer Relationship Specialty Start Date End Date Brandon Mcfarlane MD [address] [place] [address] PCP - [facility] 06/26/23 Maira Rush NP [address] [place] [address] [facility] 06/03/24 Maira Rush NP [address] [place] [address] Referring Physician Nurse Practitioner 12/17/22 Solution Engineer Relationship Specialty Start Date End Date Brandon Mcfarlane MD [address] [place] [address] PCP - General [facility] 06/26/23 Maira Rush NP [address] [place] [address] [facility] 06/03/24 Maira Rush NP [address] [place] [address] Referring Physician Nurse Practitioner 12/17/22 Solution Engineer Relationship Specialty Start Date End Date Brandon Mcfarlane MD [address] [place] [address] PCP - [facility] 06/26/23 Maira Rush NP [address] [place] [address] [facility] 06/03/24 Maira Rush NP [address] [place] [address] Referring Physician Nurse Practitioner 12/17/22 Solution Engineer Relationship Specialty Start Date End Date Brandon Mcfarlane MD [address] [place] [address] PCP - [facility] 06/26/23 Maira Rush NP [address] [place] [address] [facility] 06/03/24 Maira Rush NP [address] [place] [address] Referring Physician Nurse Practitioner 12/17/22 Solution Engineer Relationship Specialty Start Date End Date Brandon Mcfarlane MD [address] [place] [address] PCP - General Family [facility] 06/26/23 Maira Rush NP [address] [place] [address] [facility] 06/03/24 Maira Rush NP [address] [place] [address] Referring Physician Nurse Practitioner 12/17/22 Solution Engineer Relationship Specialty Start Date End Date Brandon Mcfarlane MD [address] [place] [address] PCP - [facility] 06/26/23 Maira Rush NP [address] [place] [address] [facility] 06/03/24 Maira Rush NP [address] [place] [address] Referring Physician Nurse Practitioner 12/17/22 Solution Engineer Relationship Specialty Start Date End Date Brandon Mcfarlane MD [address] [place] [address] PCP - [facility] 06/26/23 Maira Rush NP [address] [place] [address] [facility] 06/03/24 Maira Rush NP [address] [place] [address] Referring Physician Nurse Practitioner 12/17/22 Solution Engineer Relationship Specialty Start Date End Date Brandon Mcfarlane MD [address] [place] [address] PCP - [facility] 06/26/23 Maira Rush NP [address] [place] [address] [facility] 06/03/24 Maira Rush NP [address] [place] [address] Referring Physician Nurse Practitioner 12/17/22 Solution Engineer Relationship Specialty Start Date End Date Brandon Mcfarlane MD [address] [place] [address] PCP - [facility] 06/26/23 Maira Rush NP [address] [place] [address] [facility] 06/03/24 Maira Rush NP [address] [place] [address] Referring Physician Nurse Practitioner 12/17/22 Solution Engineer Relationship Specialty Start Date End Date Brandon Mcfarlane MD [address] [place] [address] PCP - General Family [facility] 06/26/23 Maira Rush NP [address] [place] [address] [facility] 06/03/24 Maira Rush NP [address] [place] [address] Referring Physician Nurse Practitioner 12/17/22 Solution Engineer Relationship Specialty Start Date End Date Brandon Mcfarlane MD [address] [place] [address] PCP - General [facility] 06/26/23 Maira Rush NP [address] [place] [address] [facility] 06/03/24 Maira Rush NP [address] [place] [address] Referring Physician Nurse Practitioner 12/17/22 Solution Engineer Relationship Specialty Start Date End Date Brandon Mcfarlane MD [address] [place] [address] PCP - General Family [facility] 06/26/23 Maira Rush NP [address] [place] [address] [facility] 06/03/24 Maira Rush NP [address] [place] [address] Referring Physician Nurse Practitioner 12/17/22 Solution Engineer Relationship Specialty Start Date End Date Brandon Mcfarlane MD [address] [place] [address] PCP - [facility] 06/26/23 Maira Rush NP [address] [place] [address] [facility] 06/03/24 Maira Rush NP [address] [place] [address] Referring Physician Nurse Practitioner 12/17/22 Solution Engineer Relationship Specialty Start Date End Date Brandon Mcfarlane MD [address] [place] [address] PCP - [facility] 06/26/23 Maira Rush NP [address] [place] [address]1002 [facility] 06/03/24 Maira Rush NP [address] [place] [address] Referring Physician Nurse Practitioner 12/17/22 Solution Engineer Relationship Specialty Start Date End Date Brandon Mcfarlane MD [address] [place] [address] PCP - General [facility] 06/26/23 Maira Rush NP [address] [place] [address] [facility] 06/03/24 Maira Rush NP [address] [place] [address] Referring Physician Nurse Practitioner 12/17/22 Solution Engineer Relationship Specialty Start Date End Date Brandon Mcfarlane MD [address] [place] [address] PCP - General Family [facility] 06/26/23 Maira Rush NP [address] [place] [address]1002 PCP [facility] 06/03/24 Maira Rush NP [address] [place] [address] Referring Physician Nurse Practitioner 12/17/22 Solution Engineer Relationship Specialty Start Date End Date Brandon Mcfarlane MD [address] [place] [address] PCP - General Family [facility] 06/26/23 Maira Rush NP [address] [place] [address] [facility] 06/03/24 Maira Rush NP [address] [place] [address] Referring Physician Nurse Practitioner 12/17/22 Solution Engineer Relationship Specialty Start Date End Date Brandon Mcfarlane MD [address] [place] [address]1002 PCP - [facility] 06/26/23 Maira Rush NP [address] [place] [address]1002 [facility] 06/03/24 Maira Rush NP [address] [place] [address] Referring Physician Nurse Practitioner 12/17/22 Solution Engineer Relationship Specialty Start Date End Date Brandon Mcfarlane MD [address] [place] [address] PCP - [facility] 06/26/23 Maira Rush NP [address] [place] [address] PCP - [facility] 06/03/24 Maira Rush NP [address] [place] [address] Referring Physician Nurse Practitioner 12/17/22 Solution Engineer Relationship Specialty Start Date End Date Brandon Mcfarlane MD [address] [place] [address] PCP - [facility] 06/26/23 Maira Rush NP [address] [place] [address]1002 [facility] 06/03/24 Maira uRsh NP [address] [place] [address] Referring Physician Nurse Practitioner 12/17/22 Solution Engineer Relationship Specialty Start Date End Date Brandon Mcfarlane MD [address] [place] [address] PCP - [facility] 06/26/23 Maira Rush NP [address] [place] [address]1002 [facility] 06/03/24 Maira Rush NP [address] [place] [address] Referring Physician Nurse Practitioner 12/17/22 Chandrika Danielson, [place] [address] [place] [address] Family Medicine 12/14/24 Lilian Quezada, METALLURGICAL INSPECTOR [address] [place] [address] Gun Perforator Loader Family Medicine 12/14/24 Solution Engineer Relationship Specialty Start Date End Date Brandon Mcfarlane MD [address] [place] [address] PCP - General [facility] 06/26/23 Maira Rush NP [address] [place] [address] PCP - [facility] 06/03/24 Maira Rush NP [address] [place] [address] Referring Physician Nurse Practitioner 12/17/22 Chandrika Danielson, [place] [address] [place] [address] Family Medicine 12/14/24 Lilian Quezada, METALLURGICAL INSPECTOR [address] [place] [address] Gun Perforator Loader Family Medicine 12/14/24 Solution Engineer Relationship Specialty Start Date End Date Brandon Mcfarlane MD [address] [place] [address] PCP - General [facility] 06/26/23 Maira Rush NP [address] [place] [address] PCP - [facility] 06/03/24 Maira Rush NP [address] [place] [address] Referring Physician Nurse Practitioner 12/17/22 Chandrika Danielson, NORAH [address] [place] [address] Family Medicine 12/14/24 Lilian Quezada, METALLURGICAL INSPECTOR [address] [place] [address] Gun Perforator Loader Family Medicine 12/14/24 Reason for Visit (unrecogniz [...] BE BASED ON THE PRIMARY CLINICAL RECORDS. [facility]. provides no warranty or guarantee of the accuracy or completeness of information in this document.
--- OUTSIDE RECORDS SUMMARY | 2025-01-27 04:33 | XMS_ITS ---
Author Organization [facility] Address [address] [place] [address] Care Team Providers Care Mainframe Systems Administrator Name Role Phone Maira Rush NP Unavailable [phone] Brandon Monterroso MD Primary Care Provider [phone] Maira Rush CAR BODY DESIGNER Unavailable [phone] Diabetes Self-Management Education Status:Enrolled (Active) Start [...]
--- OUTSIDE RECORDS SUMMARY | 2025-01-27 04:34 | XMS_ITS | Encounter Summary ---
Author Organization [facility] Address [id number] [address] [place] [address] Care Team Providers Care Industrial Engineering Name Role Phone [facility] Maira Kel SPAULDING-CASH POSTER Primary Care Provider Encounter Details Date Type Department Care Team (Late st Contact Info) Description 08/13/2022 Orders Only [facility] Pulmonary/Sleep Medicine [address] [facility] [address] [place] [address] Ref Prov, [place] [address] Social History Tobacco Use Types Packs/Day Years [...] on filedocumented in this encounter Care Teams Industrial Engineering Relationship Specialty Start Date End Date Maira Rush, APPLICATION PERFORMANCE ENGINEER-CASH POSTER PCP - General Nurse Practitioner 01/16/24 documented as of this encounter
--- OUTSIDE RECORDS SUMMARY | 2025-01-27 04:34 | XMS_ITS | Encounter Summary ---
Author Organization [facility] Address [address] [place] [address] Care Team Providers Care Hose Finisher Name Role Phone Maira Rush NP Unavailable [phone] Brandon Monterroso MD Primary Care Provider [phone] Maira Rush NURSING MANAGER Unavailable [phone] Chandrika Danielson MA Unavailable [phone] Lilian Quezada MINIATURE TRAIN DRIVER Unavailable Encounter Details Date Type Department Care Team (Late Contact Info) Description 05/25/2024 Clinisync Result Encounter [facility] External Department Unsolicited Maira Rush NP [address] [place] [address] Social History Tobacco Use Types Packs/Day Years [...] Support YOLY Martinez Patient Education [address] [place] [address] Alt, Bob, RN documented as [...] EST Narrative 05/25/2024 11:35 [place] [address] CT Scan Report Signed Patient: RODDY DIOR MR#: [id number] : 1960 Acct:[id number] Age/Sex: 63 / F ADM Date: 05/25/24 Loc: LAB Attending Dr: Maira Rush NP Ordering Physician: Maira Rush NP Date of Service: 05/25/24 Procedure(s): CT chest w con Accession Number(s): [id number] cc: Maira Rush NP The [address] [address] Patient Name: RODDY DIOR MRN: [id number] date: 1960 Sex: F Assigned Patient Location: LAB Current Patient Location: LAB Accession/Order Number: [id number] Exam Date: 05/25/2024 09:40 Report Date: 05/25/2024 [...] M.D. Signed By: 05/25/242334 DD/ 32 TD/TT: Sawmill Manager: Procedure Note Radiology, Radiologist, MD - 05/25/[address]24 [address] [place] [id number] Scan Report Signed Patient: RODDY DIOR EMR#: [id number] : 1960Acct:[id number] Age/Sex: 63 / FADM Date: 05/25/24 Loc: LAB Attending Dr: Maira Rush NP Ordering Physician: Maira Rush NP Date of Service: 05/25/24 Procedure(s): CT chest w con Accession Number(s): [id number] cc: Maira Rush NP The [address] [address] Patient Name: RODDY DIOR MRN: [id number] date: 1960 Sex: F Assigned Patient Location: LAB Current Patient Location: LAB Accession/Order Number: [id number] Exam Date: 05/25/2024 09:40 Report Date: 05/25/2024 [...] Dictated By: Patrick Hart M.D. Signed By:05/25/24 0545 DD/ 2333 TD/TT: Sawmill Manager: us Maira Rush NURSING MANAGER [facility] Final Result * ALL C-PEPTIDE (05/25/2024 9:08 AM EST) C-PEPTIDE, SERUM 2.7 1.1 - 4.4 ng/mL [facility] Comment: C-Peptide reference interval is for fasting patients. Performed at: - Lab[address] [id number] Chainsaw Mechanic: Josh Moore PhD, Phone: [phone] 05/25/2024 9:08 AM EST 05/25/2024 9:09 AM EST Narrative [facility] - 05/26/2024 8:09 AM EST us Generic External Data Provider [facility] documented in this encounter Visit Diagnoses Not on filedocumented in this encounter Care Teams Hose Finisher Relationship Specialty Start Date End Date Brandon Monterroso MD [address] [place] [address] PCP - General Family [facility] 06/26/23 Maira Rush NP [address] [place] [address] PCP - [facility] 06/03/24 Maira Rush NP [address] [place] [address] Referring Physician Nurse Practitioner 12/17/22 Chandrika Danielson MA [address] [place] [address] Family Medicine 12/14/24 01/26/25 Lilian Quezada LSW [address] [place] [address] Aba Tutor Family Medicine 12/14/24 01/26/25 documented as of this encounter
--- OUTSIDE RECORDS SUMMARY | 2025-01-27 04:34 | XMS_ITS | Encounter Summary ---
Author Organization [facility] Address [facility][id number] [address] [place] [address] Care Team Providers Care Icu Registered Nurse Name Role Phone Maira Rush APRN-DEPUTY MANAGER Primary Care Provider Encounter Details Date Type Department Care Team (Latest Contact Info) Description 01/15/2025 Travel Social History Tobacco Use Types Packs/Day Years Used Date Smoking Tobacco: Every Day Cigarettes 0.5 31 Started: 04/2022 Smokeless Tobacco: Never Alcohol Use Standard Drinks/Week Comments Not Currently 0 (1 standard drink = 0.6 oz pur e alcohol) [facility] Utilities Answer Date Recorded In the [...] on filedocumented in this encounter Care Teams Icu Registered Nurse Relationship Specialty Start Date End Date Maira Rush, JASSON-DEPUTY MANAGER PCP - General Nurse Practitioner 01/16/24 documented as of this encounter
--- OUTSIDE RECORDS SUMMARY | 2025-01-27 04:34 | XMS_ITS | Encounter Summary ---
Author Organization [facility] Address [address] [place] [address] Care Team Providers Care Cast Associate Name Role Phone Maira Rush HEAD NECK SURGEON Unavailable [phone] Brandon Monterroso MD Primary Care Provider Maira Rush HEAD NECK SURGEON Unavailable [phone] Chandrika Danielson MA Unavailable [phone] Lilian Quezada DRILL RUNNER Unavailable Encounter Details Date Type Department Care Team (Late Contact Info) Description 05/11/2024 Orders Only [facility] [address] [place] [address] Maira Rush, HEAD NECK SURGEON [address] [place] [address] Social History Tobacco Use Types Packs/Day Years [...] Support YOLY Martinez Patient Education [address] [place] [address] Bob Medina RN documented as of this encounter Procedures Procedure Name Priority Date/Time Associated Diagnosis Comments XR FINGERS 2+ VIEWS RIGHT Routine 05/11/2024 3:30 PM EST documented in this encounter Results * XR fingers 2+ views right (05/11/2024 3:30 PM EST) Anatomical Region Laterality Modality Upper Extremities, Fingers Right Radio graphic Imaging us Maira Rush HEAD NECK SURGEON IMG XR PROCEDURES Final Result documented in this encounter Visit Diagnoses Not on filedocumented in this encounter Care Teams Cast Associate Relationship Specialty Start Date End Date Brandon Monterroso MD [address] [place] [address] PCP - General Family Medicine 06/26/23 Maira Rush NP [address] [place] [address] PCP - [facility] 06/03/24 Maira Rush NP [address] [place] [address] Referring Physician Nurse Practitioner 12/17/22 Chandrika Danielson, NORAH [address] [place] [address] Family Medicine 12/14/24 01/26/25 Lilian Quezada LSW [address] [place] [address] Certified Flex Endoscope Reprocessor Family Medicine 12/14/24 01/26/25 documented as of this encounter
--- OUTSIDE RECORDS SUMMARY | 2025-01-27 04:34 | XMS_ITS | Encounter Summary ---
Author Organization [facility] Address [address] [place] [address] Care Team Providers Care Combining Machine Operator Name Role Phone Maira Rush NP Unavailable [phone] Brandon Monterroso MD Primary Care Provider Maira Rush MARKETING AMBASSADOR Unavailable [phone] Chandrika Danielson MA Unavailable [phone] Lilian Quezada SPRING CLIPPER Unavailable Encounter Details Date Type Department Care Team (Late Contact Info) Description 08/05/2023 Clinisync Result Encounter [facility] External Department Unsolicited Maira Rush NP [address] [place] [address] Social History Tobacco Use Types Packs/Day Years [...] Support YOLY Martinez Patient Education [address] [place] [address] Alt, Bob, RN documented as of this encounter Procedures Procedure Name Priority Date/Time Associated Diagnosis Comments MM TOMOSYNTHESIS SCREENING BI 08/05/2023 11:45 AM EST documented in this encounter Results * MM TOMOSYNTHESIS SCREENING BI (08/05/2023 11:45 AM EST) Anatomical Region Laterality Modality Other 08/05/2023 11:4 5 AM EST Narrative 08/05/2023 11:[place] [address] Mammography Report Signed Patient: RODDY DIOR MR#: [id number] : 1960 Acct:[id number] Age/Sex: 63 / F ADM Date: 08/05/23 Loc: MAMMO Attending Dr: Maira Rush NP Ordering Physician: Maira Rush NP Results: Date of Service: 08/05/23 Follow Up: Procedure(s): MM tomosynthesis screening BI Accession Number(s): [id number] cc: Maira Rush NP Patient Name: RODDY DIOR MR#: [id number] : 1960 Exam Date: 08/05/2023 Ordering Doctor: [...] breast cancer at age 64. LOCATION: The [facility] BREAST COMPOSITION: Scattered areas fibroglandular density. [...] Signed By: 08/05/23 1146 DD/ 1145 TD/TT: Industrial Machine System Technician: Procedure Note Radiology, Radiologist, MD - 08/05/2023 [place] [address] Mammography Report Signed Patient: RODDY DIOR EMR#: [id number] : 1960Acct:[id number] Age/Sex: 63 / FADM Date: 08/05/23 Loc: MAMMO Attending Dr: Maira Rush NP Ordering Physician: Maira Rush NPResults: Date of Service: 08/05/23Follow Up: Procedure(s): MM tomosynthesis screening BI Accession Number(s): [id number] cc: Maira Rush NP Patient Name: RODDY DIOR MR#: [id number] : 1960 Exam Date: 08/05/2023 Ordering Doctor: [...] breast cancer at age 64. LOCATION: The [facility] BREAST COMPOSITION: Scattered areas fibroglandular density. [...] M.D. Signed By:08/05/23 1146 DD/ 1145 TD/TT: Industrial Machine System Technician: us Maira Rush NP [facility] Final Result documented in this encounter Visit Diagnoses Not on filedocumented in this encounter Care Teams Combining Machine Operator Relationship Specialty Start Date End Date Brandon Monterroso MD [address] [place] [address] PCP - General Family Medicine 06/26/23 Maira Rush NP [address] [place] [address] PCP - [facility] 06/03/24 Maira Rush NP [address] [place] [address] Referring Physician Nurse Practitioner 12/17/22 Chandrika Danielson, NORAH [address] [place] [address] Family Medicine 12/14/24 01/26/25 Lilian Quezada LSW [address] [place] [address] Blueprint Reproducer Family Medicine 12/14/24 01/26/25 documented as of this encounter
--- OUTSIDE RECORDS SUMMARY | 2025-01-27 04:34 | XMS_ITS | CCD ---
Author Organization [facility] Care Team Providers Care Fisheries Diver Name Role Phone PHYSICIAN, DEFAULT Admitting Unavailable PHYSICIAN, DEFAULT Attending Unavailable AICHHOLZ, MAIRA Primary Care Unavailable PHYSICIAN, DEFAULT Admitting Unavailable PHYSICIAN, DEFAULT Attending Unavailable AICHHOLZ, MAIRA Primary Care Unavailable AICHHOLZ, ASSOCIATE JUSTICE MAIRA Primary Care Unavailable SACHA MONTANO Admitting Unavailable MARILEE .KIAN Consulting Unavailabl e SACHA MONTANO Attending Unavailable Robert Hart Consulting Unavailable HANNAH TOVAR Admitting Unavailable AICHHOLZ, ASSOCIATE JUSTICE MAIRA Primary Care Unavailable HANNAH TOVAR Attending Unavailable HANNAH TOVAR Consulting Unavailable AICHHOLZ, ASSOCIATE JUSTICE MAIRA Consulting Unavailable AICHHOLZ, ASSOCIATE JUSTICE MAIRA Primary Care Unavailable AICHHOLZ, ASSOCIATE JUSTICE MAIRA Admitting Unavailable AICHHOLZ, ASSOCIATE JUSTICE MAIRA Attending Unavailable AICHHOLZ, ASSOCIATE JUSTICE MAIRA Attending Unavailable AICHHOLZ, ASSOCIATE JUSTICE MAIRA Consulting Unavailable AICHHOLZ, ASSOCIATE JUSTICE MAIRA Primary Care Unavailable AICHHOLZ, ASSOCIATE JUSTICE MAIRA Admitting Unavailable Robert Hart Consulting Unavailable AICHHOLZ, ASSOCIATE JUSTICE MAIRA Attending Unavailable AICHHOLZ, ASSOCIATE JUSTICE MAIRA Consulting Unavailable AICHHOLZ, ASSOCIATE JUSTICE MAIRA Primary Care Unavailable AICHHOLZ, ASSOCIATE JUSTICE MAIRA Admitting Unavailable DR CORINE ANGELA V Consulting Unavailable AICHHOLZ, ASSOCIATE JUSTICE MAIRA Primary Care Unavailable AICHHOLZ, ASSOCIATE JUSTICE MAIRA Admitting Unavailable AICHHOLZ, ASSOCIATE JUSTICE MAIRA Attending Unavailable AICHHOLZ, ASSOCIATE JUSTICE MAIRA Consulting Unavailable DR TERI MAURO Admitting Unavailable AICHHOLZ, ASSOCIATE JUSTICE MAIRA Primary Care Unavailable DR TERI MAURO Attending Unavailable DR TERI MAURO Consulting Unavailable DR CORINE ANGELA V Consulting Unavailable DR BRANDON MCFARLANE Consulting Unavailable DR NEHA GATICA Consulting Unavailable YECENIA MONTERO Consulting Unavailable Aichholz ITINERANT TEACHER ASSISTANT, Maira Unavailable Loc TALBERT, Brandon Primary Care Provider CHAPITO DAMICO Referring Unavailable AICHHOLZ, MAIRA J Primary Care Unavailable Aichholz ITINERANT TEACHER ASSISTANT, Maira Unavailable Aichholz ITINERANT TEACHER ASSISTANT, Maira Unavailable CARROL SWENSON Attending Unavailable Chandrika Danielson MA Unavailable Pilar [facility], Lilian Unavailable AICHHOLZ, MAIRA Attending Unavailable AICHHOLZ, MAIRA Attending Unavailable AICHHOLZ, MAIRA Attending Unavailable AICHHOLZ, MAIRA Attending Unavailable ALT, OBB Attending Unavailable AICHHOLZ, MAIRA Referring Unavailable AICHHOLZ, [...] sources) Ciprofloxacin Drug Allergy 10-11-19 12 [facility] (2 sources) metroNIDAZOLE Drug Allergy 10-11-19 12 [facility] (6 sources) Penicillins; Translations: [PENICILLINS] Drug allergy (disorder) 10-11-19 12 [facility] (2 sources) Sulfamethoxazole / Trimethoprim Drug Allergy 10-11-19 12 [facility] (20 sources) Ciprofloxacin; Translations: [CIPROFLOXACIN] Drug Allergy 05-21-20 14 GI intolerance [facility] (20 sources) metroNIDAZOLE; Translations: [METRONIDAZOLE] Drug Allergy 05-21-20 14 GI intolerance [facility] (20 sources) Penicillins Drug Allergy 06-29-19 24 GI intolerance [facility] (20 sources) Sulfamethoxazole Allergy to substance 06-29-19 24 GI intolerance [facility] (20 sources) Trimethoprim Drug Allergy 06-29-19 24 GI intolerance [facility] (4 sources) Sulfamethoxazole / Trimethoprim; Translations: [...] 40 capsule 10/06/2024 10/16/2024 Active Continuous Glucose Solar Applications Development Engineer (FreeStyle Julisa 2 [place]) device (20 sources) Start: 04-29-2024 Continuous Glu cose Solar Applications Development Engineer (FreeStyle Julisa 2 [place]) device Indications: Type 2 diabetes mellitus with hyperglycemia, with long-term current use of insulin ([facility]) USE DIRECTED 1 each 04/29/2024 Active Start: 04-29-2024 Continuous Glu cose Solar Applications Development Engineer (FreeStyle Julisa 2 [place]) device Indications: Type 2 diabetes mellitus with hyperglycemia, with long-term current use of insulin (CMS/HCC) USE DIRECTED 1 each 04/29/2024 Active Start: 04-27-2024 End: 04-27-2025 Continuous Glucose Solar Applications Development Engineer (FreeStyle Julisa 2 [place]) device Indications: Type 2 diabetes mellitus with hyperglycemia, with long-term current use of insulin ([facility]) 1 kit every 14 (fourteen) days 1 each 1 04/27/2024 04/27/2025 Active Start: 04-27-2024 End: 04-27-2025 Continuous Glucose Solar Applications Development Engineer (FreeStyle Julisa 2 [place]) device Indications: Type 2 diabetes mellitus with hyperglycemia, with long-term current use of insulin ([facility]) 1 kit every 14 (fourteen) days 1 each 1 04/27/2024 04/27/2025 Active Start: 01-26-2024 End: 05-06-2024 Continuous Glucose Solar Applications Development Engineer (FreeStyle Julisa 2 [place]) device 01/26/2024 05/06/2024 Discontinued (Therapy completed) Start: 01-26-2024 Continuous Glu cose Solar Applications Development Engineer (FreeStyle Julisa 2 [place]) device 01/26/2024 Active Continuous Glucose Sensor (FreeStyle Julisa 2 Sensor) [facility] (20 sources) Start: 11-04-2024 Continuous Glu cose Sensor (FreeStyle Julisa 2 Sensor) misc Indications: Type 2 diabetes mellitus with hyperglycemia, with long-term current use of insulin ([facility]) USE TO MONITOR BLOOD SUGAR DIRECTED. CHANGE SENSOR EVERY 14 DAYS. 2 each 11/04/2024 Active Start: 04-22-2024 Continuous Glu cose Sensor (FreeStyle Julisa 2 Sensor) misc Indications: Type 2 diabetes mellitus with hyperglycemia, with long-term current use of insulin ([facility]) 1 kit every 14 (fourteen) days 6 each 1 04/22/2024 Active Start: 02-07-2024 End: 05-06-2024 Continuous Glucose Sensor (F reeStyle Julisa 2 Sensor) misc 02/07/2024 05/06/2024 Discontinued (Therapy completed) Start: 02-07-2024 Continuous Glu cose Sensor (FreeStyle Julisa 2 Sensor[facility] Active empagliflozin 25 mg oral tablet (20 sources) Sodium-Glucose Cotransporter 2 Inhibitor Start: 01-16-2025 End: 02-15-2025 take 1 tablet by mouth once daily empagliflozin (Jardiance) 25 MG Indications: Type 2 diabetes mellitus with diabetic neuropathy, with long-term current use of insulin ([facility]) Take 1 tablet (25 mg) by mouth Daily 30 tablet 2 01/16/2025 02/15/2025 Active Start: 06-24-2023 End: 10-18-2024 take 1 tablet by mouth once daily empagliflozin (Jardiance) 25 MG Indications: Type 2 diabetes mellitus with diabetic neuropathy, with long-term current use of insulin ([facility]) Take 1 tablet (25 mg) by mouth [...] with long-term current use of insulin ([facility]) INJECT 15-18-20 UNITS SUBCUTANEOUSLY TO MEAL SIZE [...] dizziness 02/24/2024 04/22/2024 Discontinued (Therapy completed) nystatin 865556 unt/ml topical cream (5 sources) Polyene Antifungal Start: 10-14-2024 End: 10-28-2024 nystatin (Mycostatin) cream Indications: Gill rash of groin Apply topically in the morning and before bedtime. Do all this for 14 days. 60 g 10/14/2024 10/28/2024 Active nystatin [id number] unt/ml / triamcinolone acetonide 1 mg/ml topical [...] 05-19-2024 02-25-2024 Episodic Other aftercare (1 source) correction (current) use of aspirin; Translations: [SKILLED NURSING CURRENT USE OF ASPIRIN] Onset: 06-11-2022 Episodic Other aftercare (2 sources) correction (current) use of insulin; Translations: [SKILLED NURSING CURRENT USE OF INSULIN] Onset: 06-11-2022 Episodic Other aftercare (1 source) Other [facility] (current) drug therapy; Translations: [OTH PRODUCE CLERK CURRENT DRUG THERAPY] Onset: 06-11-2022 Episodic Other aftercare (1 source) 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 of anticoagulants; Translations: [PRODUCE CLERK CURRNT USE ANTICOAGULANTS] Onset: 11-27-2021 Episodic Other aftercare (20 sources) Long-term current use of insulin; Translations: [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] Onset: 06-09-2024 04-21-2024 [...] SERUMon 01-15-2025 BETAHYDROXYBUTYRATE 1.14 mmol/L High 0.02-0.27 [facility] Comment on above: Performed By: #### [place], [address]-9, CBCA #### [facility] ([id number]) [address] [place] [address], [place] [address] BEDSIDE GLUCOSEon 01-15-2025 Glucose [Mass/Vol] 275 mg/dL High 65-99 [facility] Comment on above: Performed By: #### C TUSHAR, , CBCA #### [facility] ([id number]) [address] [place] [address] BLOOD GAS, VENOUSon 01-16-20 25 BASE,EXCESS 4.0 mmol/L High 0.0-2.0 [facility] Comment on above: Performed By: #### C TUSHAR, , CBCA #### [facility] ([id number]) [address] [place] [address] HCO3 (Bld) [Moles/Vol] 31.2 mmol/L High 20.0-24.0 [facility] Comment on above: Performed By: #### Casey FINLEY, , CBCA #### [facility] ([id number]) [address] [place] [address] INSP. O2 CONC. 21 % Normal [facility] Comment on above: Performed By: #### Casey FINLEY, , CBCA #### [facility] ([id number]) [address] [place] [address] Oxygen saturation in Blood 64.0 % Normal [facility] Comment on above: Performed By: #### Casey FINLEY , CBCA #### [facility] ([id number]) [address] [place] [address]14 PCO2 VENOUS 55.4 mmHg High 35.0-50.0 [facility] Comment on above: Performed By: #### Casey FINLEY, , CBCA #### [facility] ([id number]) [address] [place] [address] PH VENOUS 7.359 Normal 7.320-7.420 [facility] Comment on above: Performed By: #### C TUSHAR, , CBCA #### [facility] ([id number]) [address] [place] [address]4984 PO2 VENOUS 35 mmHg Normal 30-50 [facility] Comment on above: Performed By: #### C TUSHAR, , CBCA #### [facility] ([id number]) [address] [place] [address]23[address] POC MARGIE'S TEST N/A Normal [facility] Comment on above: Performed By: #### C TUSHAR, , CBCA #### [facility] ([id number]) [address] [place] [address] SAMPLE SITE N/A Normal [facility] Comment on above: Performed By: #### C TUSHAR, , CBCA #### [facility] ([id number]) [address] [place] [address]220[address] SAMPLE TYPE VENOUS Normal [facility] Comment on above: Performed By: #### C TUSHAR, , CBCA #### [facility] ([id number]) [address] [place] [address] SOURCE OF OXYGEN Room Air Normal [facility] Comment on above: Performed By: #### C TUSHAR, , CBCA #### [facility] ([id number]) [address] [place] [address] C-REACTIVE PROTEINon 025 CRP [Mass/Vol] mg/L Normal <=0.7 [facility] Comment on above: Performed By: #### C RP #### [facility] ([facility]) [address] [place] [address] VIR CBC WITH AUTO DIFFERENTIALon 01-15-2025 BASOPHILS ABSOLUTE COUNT (10*3/UL) BY AUTOMATED COUNT 0.1 10*3/uL Normal 0.0-0.2 [facility] Comment on above: Performed By: #### C BCA #### [facility] ([address] [address] VIR BASOPHILS RELATIVE PERCENT BY AUTOMATED COUNT 0.6 % Normal [facility] Comment on above: Performed By: #### C BCA #### [facility] ([address] [address] VIR CELLAVISION DIFFERENTIAL TYPE AUTOMATED DIFFERENTIAL Normal [facility] Comment on above: Performed By: #### C BCA #### [facility] ([address] [address] VIR Eosinophils (Bld) [#/Vol] 0.1 10*3/uL Normal 0.0-0.4 [facility] Comment on above: Performed By: #### C BCA #### [facility] ([address] [address] VIR EOSINOPHILS RELATIVE PERCENT BY AUTOMATED COUNT 0.7 % Normal [facility] Comment on above: Performed By: #### C BCA #### [facility] ([address] [address] VIR Erythrocyte distribution width (RBC) [Ratio] 14.1 % Normal 11.5-15 [facility] Comment on above: Performed By: #### C BCA #### [facility] ([address] [address] VIR Hematocrit (Bld) [Volume fraction] 48.9 % High 35-47 [facility] Comment on above: Performed By: #### C BCA #### [facility] ([address] [address] VIR Hemoglobin (Bld) [Mass/Vol] 16.8 g/dL High 11.7-15.5 [facility] Comment on above: Performed By: #### C BCA #### [facility] ([address] [address] VIR LYMPHOCYTES ABSOLUTE COUNT (10*3/UL) BY AUTOMATED COUNT 2.1 10*3/uL Normal 1.0-3.5 [facility] Comment on above: Performed By: #### C BCA #### [facility] ([address] [address] VIR LYMPHOCYTES RELATIVE PERCENT BY AUTOMATED COUNT 23.8 % Normal [facility] Comment on above: Performed By: #### C BCA #### [facility] ([address] [address] VIR MCH (RBC) [Entitic mass] 30.7 pg Normal 27-34 [facility] Comment on above: Performed By: #### C BCA #### [facility] ([address] [address] VIR MCHC (RBC) [Mass/Vol] 34.4 g/dL Normal 32-36 [facility] Comment on above: Performed By: #### C BCA #### [facility] ([address] [address] VIR MCV (RBC) [Entitic vol] 89 fL Normal 80-100 [facility] Comment on above: Performed By: #### C BCA #### [facility] ([address] [place] [address] VIR MONOCYTES ABSOLUTE COUNT (10*3/UL) BY AUTOMATED COUNT 0.6 10*3/uL Normal 0.0-0.9 [facility] Comment on above: Performed By: #### C BCA #### [facility] ([address] [address] VIR MONOCYTES RELATIVE PERCENT BY AUTOMATED COUNT 7.1 % Normal [facility] Comment on above: Performed By: #### C BCA #### [facility] ([address] [place] [address] VIR NEUTROPHILS ABSOLUTE COUNT BY AUTOMATED COUNT 5.9 10*3/uL Normal 1.5-6.6 [facility] Comment on above: Performed By: #### C BCA #### [facility] ([address] [place] [address] VIR NEUTROPHILS RELATIVE PERCENT BY AUTOMATED COUNT 67.8 % Normal [facility] Comment on above: Performed By: #### C BCA #### [facility] ([address] [place] [address] VIR Platelet mean volume (Bld) [Entitic vol] 8.8 fL Normal 7-12 [facility] Comment on above: Performed By: #### C BCA #### [facility] ([address] [place] [address] VIR Platelets (Bld) [#/Vol] 311 10*3/uL Normal 150-450 [facility] Comment on above: Performed By: #### C BCA #### [facility] ([address] [place] [address] VIR RBC COUNT 5.47 X10E12/L High 3.8-5.2 [facility] Comment on above: Performed By: #### C BCA #### [facility] ([address] [place] [address] VIR WBC (Bld) [#/Vol] 8.7 10*3/uL Normal 4-11 [facility] Comment on above: Performed By: #### C BCA #### [facility] ([address] [place] [address] VIR COMPREHENSIVE METABOLIC PANE Blayne 01-15-2025 Albumin [Mass/Vol] 3.3 g/dL Normal 3.2-5.3 [facility] Comment on above: Performed By: #### C MP #### [facility] ([facility] [address] [place] [address] VIR ALP [Catalytic activity/Vol] 83 U/L Normal 39-130 [facility] Comment on above: Performed By: #### C MP #### [facility] ([place] [address] [place] [address] VIR ALT [Catalytic activity/Vol] 13 U/L Normal <=31 [facility] Comment on above: Performed By: #### C MP #### [facility] ([place] [address] [place] [address] VIR Anion gap [Moles/Vol] 10 mmol/L Normal 5-15 [facility] Comment on above: Performed By: #### C MP #### [facility] ([place] [address] [place] [address] VIR AST [Catalytic activity/Vol] 15 U/L Normal <=41 [facility] Comment on above: Performed By: #### C MP #### [facility] ([place] [address] [place] [address] VIR Bilirubin [Mass/Vol] 0.6 mg/dL Normal 0.3-1.2 [facility] Comment on above: Performed By: #### C MP #### [facility] ([place] [address] [place] [address] VIR Calcium [Mass/Vol] 8.8 mg/dL Normal 8.5-10.5 [facility] Comment on above: Performed By: #### C MP #### [facility] ([place] [address] [place] [address] VIR Chloride [Moles/Vol] 97 mmol/L Low 98-109 [facility] Comment on above: Performed By: #### C MP #### [facility] ([place] [address] [place] [address] VIR CO2 [Moles/Vol] 29 mmol/L Normal 22-32 [facility] Comment on above: Performed By: #### C MP #### [facility] ([address] [address] VIR Creatinine [Mass/Vol] 0.73 mg/dL Normal 0.40-1.00 [facility] Comment on above: Result Comment: METH OD TRACEABLE TO IDMS STANDARD Performed By: #### C MP #### [facility] ([address] [address] VIR EGFR (CKD-EPI) NON-RACE DEPENDENT >^90 Normal >=60 [facility] Comment on above: Result Comment: eGFR not reported due to non-numeric value for Creatinine. Reported eGFR is based on the CKD-EPI 2020 equation that does not use a race coefficient. Performed By: #### C MP #### [facility] ([address] [address] VIR Glucose [Mass/Vol] 369 mg/dL High 65-99 [facility] Comment on above: Performed By: #### C MP #### [facility] ([address] [address] VIR Potassium [Moles/Vol] 3.1 mmol/L Low 3.5-5.0 [facility] Comment on above: Performed By: #### C MP #### [facility] ([address] [address] VIR Protein [Mass/Vol] 6.4 g/dL Normal 6.0-8.0 [facility] Comment on above: Performed By: #### C MP #### [facility] ([address] [address] VIR Sodium [Moles/Vol] 136 mmol/L Normal 134-146 [facility] Comment on above: Performed By: #### C MP #### [facility] ([facility]) [address] [address] [place] [address] VIR Urea nitrogen [Mass/Vol] 9 mg/dL Normal 5-27 [facility] Comment on above: Performed By: #### C TUSHAR #### [facility] ([facility]) [address] [place], [place] [address]. [place] [address]RAIN WO [address] CT BRAIN [...] Rowley MD on 01/15/2025 4:29 PM Normal [facility] D-DIMERon 01-15-2025 D DIMER <^150 Normal 1-255 [facility] Comment on above: Result Comment: Resu lts <255 ng/mL DDU: The presensence of a VTE can safely be excluded with a negative D-Dimer result and Wells score. A negative result doesn't exclude the possibility of DIC. The test should be repeated along with other diagnostic tests if the patient's symptoms persist or worsen. Performed By: #### C TUSHAR, 15876-7, CBCA #### [facility] ([id number]) [address] [place] [address], [place] [address] DRUG SCREEN, URINEon 025 AMPHETAMINE/METHAMP Negative Normal Negative [facility] Comment on above: Result Comment: AMPH /METH screening cut off = 1000 ng/mL Performed By: #### C TUSHAR, , CBCA #### [facility] ([id number]) [address] [place] [address] BARBITURATES Negative Normal Negative [facility] Comment on above: Result Comment: Rupa iturates screening cut off value = 200 ng/mL Performed By: #### C TUSHAR, , CBCA #### [facility] ([id number]) [address] [place] [address] BENZODIAZEPINES Negative Normal Negative [facility] Comment on above: Result Comment: Leroy odiazepines screening cut off value = 200 ng/mL Performed By: #### C TUSHAR, , CBCA #### [facility] ([id number]) [address] [place] [address] CANNABINOIDS Negative Normal Negative [facility] Comment on above: Result Comment: Shanice abinoids/THC screening cut off value = 50 ng/mL Performed By: #### C TUSHAR, , CBCA #### [facility] ([id number]) [address] [place] [address] COCAINE METABOLITE Negative Normal Negative [facility] Comment on above: Result Comment: Coca ine screening cut off value = 300 ng/mL Performed By: #### C TUSHAR, , CBCA #### [facility] ([id number]) [address] [place] [address] ECSTASY Negative Normal Negative [facility] Comment on above: Result Comment: Ecst asy screening cut off value = 500 ng/mL Performed By: #### C TUSHAR, , CBCA #### [facility] ([id number]) [address] [place] [address] METHADONE Negative Normal Negative [facility] Comment on above: Result Comment: Meth adone screening cut off value = 300 ng/mL. Performed By: #### C TUSHAR, , CBCA #### [facility] ([id number]) [address] [place] [address] OPIATES Negative Normal Negative [facility] Comment on above: Result Comment: Opia ashley screening cut off value = 300 ng/mL This test is used for the detection of codeine, hydrocodone (>1000 ng/mL), morphine and hydromorphone (>900 ng/mL) in urine. Performed By: #### C TUSHAR, 04381-3, CBCA #### [facility] ([id number]) [address] [place] [address] OXYCODONE Negative Normal Negative [facility] Comment on above: Result Comment: Oxyc odone screening cut off value = 300 ng/mL This test is used for the detection of oxycodone and oxymorphone in urine. Performed By: #### C TUSHAR, 80375-1, CBCA #### [facility] ([id number]) [address] [place] [address] PHENCYCLIDINE Negative Normal Negative [facility] Comment on above: Result Comment: Phen cyclidine screening cut off value = 25 ng/mL Performed By: #### C TUSHAR, , CBCA #### [facility] ([id number]) [address] [place] [address] ETHANOLon 01-15-2025 Ethanol [Mass/Vol] mg/dL Normal <=0.080 [facility] Comment on above: Result Comment: This report is intended for use in clinical monitoring or management of patients. Performed By: #### A LCO #### [facility] ([facility]) [address] [place] [address] VIR LACTATE W/ REFLEXon 01-16-20 25 LACTATE W/REFLEX 1.1 mmol/L Normal 0.4-2.0 [facility] Comment on above: Order Comment: Resul t did not trigger repeat Lactate, re-order if needed. Performed By: #### L ACTS #### [facility] ([facility]) [address] [place] [address] [place] [address] VIR MAGNESIUMon 01-15-2025 Magnesium [Mass/Vol] 1.8 mg/dL Normal 1.8-2.6 [facility] Comment on above: Performed By: #### M G #### [facility] ([facility]) [address] [address] [place] [address] VIR POCT NURSING URINE MACROSCOP IC UAon 01-15-2025 BILIRUBIN ANISHA Negative Normal Negative [facility] Comment on above: Performed By: #### C TUSHAR, , CBCA #### [facility] ([id number]) [address] [place] [address] BLOOD/HGB ANISHA Small Abnormal Negative [facility] Comment on above: Performed By: #### Casey FINLEY, , CBCA #### [facility] ([id number]) [address] [place] [address] [place] [address] GLUCOSE ANISHA >=1000 mg/dL Abnormal Negative [facility] Comment on above: Performed By: #### Casey FINLEY, , CBCA #### [facility] ([id number]) [address] [place] [address] KETONES ANISHA Negative Normal Negative [facility] Comment on above: Performed By: #### Casey FINLEY, , CBCA #### [facility] ([id number]) [address] [place] [address] [place] [address] LEUKOCYTE ESTERASE ANISHA Small Abnormal Negative [facility] Comment on above: Performed By: #### Casey FINLEY, , CBCA #### [facility] ([id number]) [address] [place] [address] 70988 NITRITE ANISHA Negative Normal Negative [facility] Comment on above: Performed By: #### Casey FINLEY, , CBCA #### [facility] ([id number]) [address] [place] [address] 52091 PH ANISHA 5.5 Normal 5.0, 6.0, 6.5, 7.0, 7.5, 8.0, 8.5, 5.5 [facility] Comment on above: Performed By: #### C TUSHAR, , CBCA #### [facility] ([id number]) [address] [place] [address] 05775 PROTEIN ANISHA Negative Normal Negative [facility] Comment on above: Performed By: #### C TUSHAR, , CBCA #### [facility] ([id number]) [address] [place] [address] 98208 SPECIFIC GRAVITY ANISHA 1.010 Normal 1.010, 1.015, 1.020, 1.025 [facility] Comment on above: Performed By: #### C TUSHAR, , CBCA #### [facility] ([id number]) [address] [place] [address] 80061 UROBILINOGEN ANISHA 0.2 E.U./dL Normal [facility] Comment on above: Performed By: #### C TUSHAR, , CBCA #### [facility] ([id number]) [address] [place] [address] 00896 TROP I, HIGH SENSITIVITY 1 H OURon 01-15-2025 TROPONIN I, HIGH SENSITIVITY 4 ng/L Normal <16 [facility] Comment on above: Performed By: #### C TUSHAR, , CBCA #### [facility] ([id number]) [address] [place] [address] 51027 TROPONIN I, HIGH SENSITIVITY 0 HOURon 01-15-2025 TROPONIN I, HIGH SENSITIVITY 4 ng/L Normal <16 [facility] Comment on above: Performed By: #### T NIHS0 #### [facility] ([facility]) [address] [place] [address]. [place] [address] VIR URINE CULTUREon 01-15-2025 Bacteria identified Cx [...] Trimethoprim + Sulfamethoxazole R >=^16.0 F Resistant [facility] Comment on above: Order Comment: Along with <10,000 CFU/mL Normal Urogenital Vikram. Performed By: #### C TUSHAR, 57060-3, CBCA #### [facility] ([id number]) [address] [place] [address], [place] [address] HbA1c (Bld) [Mass fraction]o n 12-14-2024 Interpretation and review of laboratory results Abnormal [facility] Laboratory - Hematology and Cell countson 12-14-2024 HbA1c (Bld) [Mass fraction] 14.1 % [facility] Orders Onlyon 10-28-2024 Orders Only [id number] Denae Dior 1960 F Date Provider Department Center 10/28/2024 [id number], HISTORICAL [facility] Family History Problem Relation Age of Onset Stroke Father Family Status - Relation Status Age at Father [facility] GASTROINTESTINAL PLUS PARASI ASHLEY (HTRX)on 07-16-2024 ADENOVIRUS [...] [facility] CT ABDOMEN WO/W CONon [address] [address] [address] Scan Report Signed Patient: DENAE DIOR MR#: [id number] : 1960 Acct:[id number] Age/Sex: 63 / F ADM Date: 07/06/24 Loc: CT Attending Dr: Maira Rush NP Ordering Physician: Maira Rush NP Date of Service: 07/06/24 Procedure(s): CT abdomen wo/w con Accession Number(s): [id number] cc: Maira Rush NP [place] [address] Patient Name: DENAE DIOR MRN: [facility]:[id number] date: 1960 Sex: F Assigned Patient Location: CT Current Patient Location: Accession/Order Number: [id number] Exam Date: 07/06/2024 09:03 Report Date: 07/08/2024 [...] Signed By: 07/08/24 1155 DD/ 1152 TD/TT: Clinical Admissions Manager: [facility] Radiology, Radiologist, - 07/08/2024 [place] [address] CT Scan Report Signed Patient: DENAE DIOR MR#: [id number] : 1960 Acct:[id number] Age/Sex: 63 / F ADM Date: 07/06/24 Loc: CT Attending Dr: Maira Rush NP Ordering Physician: Maira Rush NP Date of Service: 07/06/24 Procedure(s): CT abdomen wo/w con Accession Number(s): [id number] cc: Maira Rush NP [address] [place] [address] Patient Name: DENAE DIOR MRN: [facility]:[id number] date: 1960 Sex: F Assigned Patient Location: CT Current Patient Location: Accession/Order Number: [id number] Exam Date: 07/06/2024 09:03 Report Date: 07/08/2024 [...] Signed By: 07/08/24 1155 DD/ 1152 TD/TT: Clinical Admissions Manager: [facility] Radiology Study observation (narrative) [facility] CT ABDOMEN WO/W CONOrdered B y: Radiologist Radiology on 07-08-2024 [facility] Work Phone: Office Visiton 07-06-2024 Follow-up visit [id number] Denae Dior 1960 F Date Provider Department Center 07/06/2024 Emmett8-[facility] Family History Problem Relation Age of Onset Stroke Father Family Status - Relation Status Age at Father Level of Service:59365 [place] OFFICE/OUTPATIENT ESTABLISHED LOW MDM 20 MIN [facility] ALL RENAL FUNCTION PANELon 1 07-26-2023 Albumin [Mass/Vol] 3.3 g/dL Low 3.4 - 5.0 g/dL [facility] Anion gap [Moles/Vol] 9.2 mmol/L [facility] Calcium [Mass/Vol] 8.7 mg/dL 8.5 - 10. 1 mg/dL [facility] Chloride [Moles/Vol] 101 mmol/L 98 - 10 7 mmol/L [facility] CO2 [Moles/Vol] 31.7 mmol/L 21.0 - 32.0 mmol/L [facility] Creatinine [Mass/Vol] 0.87 mg/dL 0.55 - 1.02 mg/dL [facility] GFR/1.73 sq M.predicted CKD-EPI (S/P/Bld) [Vol rate/Area] >60 >=60 mL/min/1.73m 2 [facility] Glucose [Mass/Vol] 275 mg/dL High 74 - 106 mg/dL [facility] Interpretation and review of laboratory results Abnormal [facility] Phosphate [Mass/Vol] 4.3 mg/dL 2.6 - 4 .7 mg/dL [facility] Potassium [Moles/Vol] 3.9 mmol/L 3.5 - 5.1 mmol/L [facility] Sodium [Moles/Vol] 138 mmol/L 136 - 145 mmol/L [facility] TBH EGFR-NON AF LUXEMBOURGER >60 >=60 mL/min/1.73m 2 [facility] Urea nitrogen [Mass/Vol] 15 mg/dL 7.0 - 18.0 mg/dL [facility] Urea nitrogen/Creatinine [Mass ratio] 17.2 mg/mg [facility] Glucose (Bld) [Mass/Vol]Orde red By: Candy Baxter on 04-21-2024 Glucose Blood, POC 208 mg/dL [facility] Laboratory - Hematology and Cell countson 04-21-2024 HbA1c (Bld) [Mass fraction] 10.6 % [facility] No Panel InformationOrdered By: Candy Baxter on 04-21-2024 [facility] TB UA (CLEAN/CATCH) MICROSC OPIC IF INDICATEon 04-09-2024 BILIRUBIN URINE Negative NEGATIVE [facility] BLOOD URINE Negative NEGATIVE [facility] Clarity (U) CLEAR CLEAR [facility] Color (U) LT. YELLOW YELLOW [facility] GLUCOSE URINE UA >=1000 Abnormal NEGATIVE mg/dL [facility] Interpretation and review of laboratory results Abnormal [facility] Ketones Ql (U) Negative NEGATIVE mg/dL [facility] Leukocyte esterase Test strip Ql (U) Negative NEGATIVE [facility] NITRITE URINE Negative NEGATIVE [facility] pH (U) 6.0 [pH] 5.0 - 9.0 [facility] PROTEIN URINE Negative NEG/TRACE mg/dL [facility] SPECIFIC GRAVITY URINE 1.010 1.005 - 1.025 [facility] URINE MICROSCOPIC INDICATED NO [facility] UROBILINOGEN URINE 0.2 EU/dL 0.2 - 1.0 EU/dL [facility] URINE CULTURE, ROUTINEon Bacteria identified Cx Nom (U) Urine Culture, Routine [facility] Bacteria identified Cx Nom (U) Mixed urogenital vikram [facility] Bacteria identified Cx Nom (U) 10,000-25,000 colony forming units per mL [facility] Bacteria identified Cx Nom (U) Performed at: - [facility] Bacteria identified Cx Nom (U) [address] [place], [place] [id number] [facility] Bacteria identified Cx Nom (U) Extruder Tender: Josh Moore PhD, Phone: [phone] [facility] CBC AND AUTO DIFFon 01-22-20 ABSOLUTE BASOPHIL 0.0 X10E9/L Normal 0.0-0.2 [facility] [place] Comment on above: Performed By: #### C TUSHAR, , CBCA #### [facility] ([id number]) [address] [place] [address] 22752 ABSOLUTE NEUTROPHIL 4.2 X10E9/L Normal 1.5-6.6 [facility] Comment on above: Performed By: #### C TUSHAR, , CBCA #### [facility] ([id number]) [address] [place] [address] 25260 Basophils/100 WBC (Bld) 0.4 % Normal [facility] Comment on above: Performed By: #### C TUSHAR, , CBCA #### [facility] ([id number]) [address] [place] [address] 99376 Eosinophils (Bld) [#/Vol] 0.2 10*3/uL Normal 0.0-0.4 [facility] Comment on above: Performed By: #### C TUSHAR, , CBCA #### [facility] ([id number]) [address] [place] [address] 93990 Eosinophils/100 WBC (Bld) 2.6 % Normal [facility] Comment on above: Performed By: #### Casey FINLEY, , CBCA #### [facility] ([id number]) [address] [place] [address] 90627 Erythrocyte distribution width (RBC) [Ratio] 13.5 % Normal 11.5-15.0 [facility] Comment on above: Performed By: #### C TUSHAR, , CBCA #### [facility] ([id number]) [address] [place] [address] 04702 Hematocrit (Bld) [Volume fraction] 48.3 % High 35-47 [facility] Comment on above: Performed By: #### C TUSHAR, , CBCA #### [facility] ([id number]) [address] [place] [address] 85997 Hemoglobin (Bld) [Mass/Vol] 16.0 g/dL High 11.7-15.5 [facility] Comment on above: Performed By: #### C TUSHAR, , CBCA #### [facility] ([id number]) [address] [place] [address] 99132 Lymphocytes (Bld) [#/Vol] 1.9 10*3/uL Normal 1.0-3.5 [facility] Comment on above: Performed By: #### C TUSHAR, , CBCA #### [facility] ([id number]) [address] [place] [address] 32820 Lymphocytes/100 WBC (Bld) 27.1 % Normal [facility] Comment on above: Performed By: #### C TUSHAR, , CBCA #### [facility] ([id number]) [address] [place] [address] 26895 MCH (RBC) [Entitic mass] 31.5 pg Normal 27-34 [facility] Comment on above: Performed By: #### C TUSHAR, , CBCA #### [facility] ([id number]) [address] [place] [address] 11971 MCHC (RBC) [Mass/Vol] 33.1 g/dL Normal 32-36 [facility] Comment on above: Performed By: #### C TUSHAR, , CBCA #### [facility] ([id number]) [address] [place] [address] 11424 MCV (RBC) [Entitic vol] 95 fL Normal 80-100 [facility] Comment on above: Performed By: #### C TUSHAR, , CBCA #### [facility] ([id number]) [address] [place] [address] 42804 Monocytes (Bld) [#/Vol] 0.7 10*3/uL Normal 0-0.9 [facility] Comment on above: Performed By: #### C TUSHAR, , CBCA #### [facility] ([id number]) [address] [place] [address] 90938 Monocytes/100 WBC (Bld) 10.0 % Normal [facility] Comment on above: Performed By: #### Casey FINLEY, , CBCA #### [facility] ([id number]) [address] [place] [address] 88317 Neutrophils/100 WBC (Bld) 59.9 % Normal [facility] Comment on above: Performed By: #### Casey FINLEY, , CBCA #### [facility] ([id number]) [address] [place] [address] 73384 Platelet mean volume (Bld) [Entitic vol] 9.0 fL Normal 7-12 [facility] Comment on above: Performed By: #### Casey FINLEY, , CBCA #### [facility] ([id number]) [address] [place] [address] 46054 Platelets (Bld) [#/Vol] 264 10*3/uL Normal 150-450 [facility] Comment on above: Performed By: #### C TUSHAR, , CBCA #### [facility] ([id number]) [address] [place] [address] 06456 RBC COUNT 5.07 X10E12/L Normal 3.80-5.20 [facility] Comment on above: Performed By: #### C TUSHAR, , CBCA #### [facility] ([id number]) [address] [place] [address] 58884 WBC (Bld) [#/Vol] 7.1 10*3/uL Normal 4.0-11.0 [facility] [place] Comment on above: Performed By: #### C TUSHAR, , CBCA #### [facility] ([id number]) [address] [place] [address] 09178 COMPREHENSIVE METABOLIC PANE Blayne 01-22-2024 Albumin [Mass/Vol] 3.1 g/dL Low 3.2-5.3 [facility] [place] Comment on above: Performed By: #### C TUSHAR, , CBCA #### [facility] ([id number]) [address] [place] [address] 33322 ALP [Catalytic activity/Vol] 98 U/L Normal 39-130 [facility] Comment on above: Performed By: #### C TUSHAR, , CBCA #### [facility] ([id number]) [address] [place] [address] 79955 ALT [Catalytic activity/Vol] 21 U/L Normal 0-31 [facility] Comment on above: Performed By: #### C TUSHAR, , CBCA #### [facility] ([id number]) [address] [place] [address] 16317 Anion gap [Moles/Vol] 7 mmol/L Normal 5-15 [facility] Comment on above: Performed By: #### C TUSHAR, , CBCA #### [facility] ([id number]) [address] [place] [address] 00423 AST [Catalytic activity/Vol] 19 U/L Normal 0-41 [facility] Comment on above: Performed By: #### C TUSHAR, , CBCA #### [facility] ([id number]) [address] [place] [address] 80883 Bilirubin [Mass/Vol] 0.5 mg/dL Normal 0.3-1.2 [facility] Comment on above: Performed By: #### C TUSHAR, , CBCA #### [facility] ([id number]) [address] [place] [address] 29216 Calcium [Mass/Vol] 8.9 mg/dL Normal 8.5-10.5 [facility] [place] Comment on above: Performed By: #### C TUSHAR, , CBCA #### [facility] ([id number]) [address] [place] [address] 58138 Chloride [Moles/Vol] 100 mmol/L Normal 98-109 [facility] Comment on above: Performed By: #### C TUSHAR, , CBCA #### [facility] ([id number]) [address] [place] [address] 36464 CO2 [Moles/Vol] 31 mmol/L Normal 22-32 [facility] Comment on above: Performed By: #### C TUSHAR, , CBCA #### [facility] ([id number]) [address] [place] [address] 48122 Creatinine [Mass/Vol] 0.51 mg/dL Normal 0.40-1.00 [facility] Comment on above: Result Comment: METH OD TRACEABLE TO IDMS STANDARD Performed By: #### C TUSHAR, , CBCA #### [facility] ([id number]) [address] [place] [address] 38045 eGFR (CKD-EPI) NON-RACE DEPENDENT >90 Normal >59 [facility] Comment on above: Result Comment: Reported eGFR is based on the CKD-EPI 2020 equation that does not use a race coefficient. Performed By: #### C TUSHAR, , CBCA #### [facility] ([id number]) [address] [place] [address] 78692 Glucose [Mass/Vol] 153 mg/dL High 65-99 [facility] [place] Comment on above: Performed By: #### C TUSHAR, , CBCA #### [facility] ([id number]) [address] [place] [address] 55599 Potassium [Moles/Vol] 4.0 mmol/L Normal 3.5-5.0 [facility] Comment on above: Performed By: #### C TUSHAR, , CBCA #### [facility] ([id number]) [address] [place] [address] 18957 Protein [Mass/Vol] 6.5 g/dL Normal 6.0-8.0 [facility] [place] Comment on above: Performed By: #### C TUSHAR, , CBCA #### [facility] ([id number]) [address] [place] [address] 94346 Sodium [Moles/Vol] 138 mmol/L Normal 134-146 [facility] [place] Comment on above: Performed By: #### C TUSHAR, , CBCA #### [facility] ([id number]) [address] [place] [address] 08010 Urea nitrogen [Mass/Vol] 20 mg/dL Normal 5-27 [facility] Comment on above: Performed By: #### C TUSHAR, , CBCA #### [facility] ([id number]) [address] [place] [address] MAGNESIUMon 01-22-2024 Magnesium [Mass/Vol] 2.2 mg/dL Normal 1.8-2.6 [facility] Comment on above: Performed By: #### [place], [address]-1, CBCA #### [facility] ([id number]) [address] [place] [address] 36980 XR DEXA BONE DENSITYon 10-02 XR DEXA [...] by: ROBERT HART Date: 2022-10-02 12:08 Normal [facility] LIPID PROFILEon 08-09-2022 CHOL-HDL RATIO NORM SEE BELOW Normal [place] Comment on above: Result Comment: 3.3 - 4.4 LOW RISK 4.4 - 7.1 AVERAGE RISK 7.1 - 11.0 MODERATE RISK >11.0 HIGH RISK Performed By: #### M ALBR #### [facility] [address] [place] [address] [address] Maru Disla Cholesterol [Mass/Vol] 110 mg/dL Normal <=200 [facility] Comment on above: Performed By: #### M ALBR #### [facility] [address] [place], [place] [address] Dr. Maru Disla Cholesterol in HDL [Mass/Vol] 38 mg/dL Critically low 40-60 [facility] Comment on above: Performed By: #### M ALBR #### [facility] [address] [place] [address] [address] Maru Disla Cholesterol in LDL [Mass/Vol] 52.4 mg/dL Normal [facility] Comment on above: Performed By: #### M ALBR #### [facility] [address] [place] [address] [address] Maru Disla Cholesterol.total/Mariel sterol in HDL [Mass ratio] 2.9 {ratio} Normal [facility] Comment on above: Performed By: #### M ALBR #### [facility] [address] [place] [address] Dr. Maru Disla HDL NORMAL > or = 60 mg/dl - LOW CARDIOVASCULAR RISK <40 mg/dl - HIGH CARDIOVASCULAR RISK Normal [facility] Comment on above: Performed By: #### M ALBR #### [facility] [address] [place] [address] Dr. Maru Disla LDL CALC NORMAL SEE BELOW Normal [facility] Comment on above: Result Comment: <100 mg/dl OPTIMAL 100 - 129 mg/dl NEAR OR ABOVE OPTIMAL 130 - 159 mg/dl BORDERLINE HIGH 160 - 189 mg/dl HIGH >190 mg/dl VERY HIGH Performed By: #### M ALBR #### [facility] [address] [place] [address] Dr. Maru Disla Triglyceride [Mass/Vol] 98 mg/dL Normal <=150 [facility] Comment on above: Performed By: #### M ALBR #### [facility] [address] [place] [address] Dr. Maru Disla VLDL CALC 19.6 mg/dL Normal [facility] Comment on above: Performed By: #### M ALBR #### [facility] [address] [place] [address] Dr. Maru Disla MICROALBUMIN, RAND URon 03-0 mALB <1.3 Normal <=30.0 [facility] Comment on above: Performed By: #### M ALBR #### [facility] [address] [place] [address] Dr. Maru Disla PROF 14(COMP METB)on 023 Albumin [Mass/Vol] 3.6 g/dL Normal 3.4-5.0 [facility] Comment on above: Performed By: #### M ALBR #### [facility] [address] [place] [address] Dr. Maru Disla Albumin/Globulin [Mass ratio] 0.9 {ratio} Normal [facility] Comment on above: Performed By: #### M ALBR #### [facility] [address] [place] [address] Dr. Maru Disla ALP [Catalytic activity/Vol] 92 U/L Normal 46-116 [facility] Comment on above: Performed By: #### M ALBR #### [facility] [address] [place] [address] Dr. Maru Disla ALT [Catalytic activity/Vol] 22 U/L Normal 14-59 [facility] Comment on above: Performed By: #### M ALBR #### [facility] [address] [place] [address] Dr. Maru Disla Anion gap [Moles/Vol] 13.2 mmol/L Normal [facility] Comment on above: Performed By: #### M ALBR #### [facility] [address] [place] [address] Dr. Maru Disla AST [Catalytic activity/Vol] 17 U/L Normal 15-37 [facility] Comment on above: Performed By: #### M ALBR #### [facility] [address] [place] [address] Dr. Maru Disla Bilirubin [Mass/Vol] 0.4 mg/dL Normal 0.2-1.0 [facility] Comment on above: Performed By: #### M ALBR #### [facility] [address] [place] [address] Dr. Maru Disla Calcium [Mass/Vol] 9.3 mg/dL Normal 8.5-10.1 [facility] Comment on above: Performed By: #### M ALBR #### [facility] [address] [place] [address] Dr. Maru Disla Chloride [Moles/Vol] 102 mmol/L Normal 98-107 [facility] Comment on above: Performed By: #### M ALBR #### [facility] [address] [place] [address] Dr. Maru Disla CO2 [Moles/Vol] 29.7 mmol/L Normal 21.0-32.0 [facility] Comment on above: Performed By: #### M ALBR #### [facility] [address] [place] [address] Dr. Maru Disla Creatinine [Mass/Vol] 0.74 mg/dL Normal 0.55-1.02 [facility] Comment on above: Performed By: #### M ALBR #### [facility] [address] [place] [address] Dr. Maru Disla EGFR-AF LUXEMBOURGER >60 Normal >=60 [facility] Comment on above: Performed By: #### M ALBR #### [facility] [address] [place] [address] Dr. Maru Disla EGFR-NON AF LUXEMBOURGER >60 Normal >=60 [facility] Comment on above: Performed By: #### M ALBR #### [facility] [address] [place] [address] Dr. Maru Disla Globulin (S) [Mass/Vol] 3.9 g/dL Normal [facility] Comment on above: Performed By: #### M ALBR #### [facility] [address] [place] [address] Dr. Maru Disla Glucose [Mass/Vol] 271 mg/dL Critically high 74-106 [facility] Comment on above: Performed By: #### M ALBR #### [facility] [address] [place] [address] Dr. Maru Disla Potassium [Moles/Vol] 3.9 mmol/L Normal 3.5-5.1 [facility] Comment on above: Performed By: #### M ALBR #### [facility] [address] [place] [address] Dr. Maru Disla Protein [Mass/Vol] 7.5 g/dL Normal 6.4-8.2 [facility] Comment on above: Performed By: #### M ALBR #### [facility] [address] [place] [address] [address] Maru Disla Sodium [Moles/Vol] 141 mmol/L Normal 136-145 [facility] Comment on above: Performed By: #### M ALBR #### [facility] [address] [place] [address] [address] Maru Disla Urea nitrogen [Mass/Vol] 8.0 mg/dL Normal 7.0-18.0 [facility] Comment on above: Performed By: #### M ALBR #### [facility] [address] [place] [address] [address] Maru Disla Urea nitrogen/Creatinine [Mass ratio] 10.8 mg/mg Normal [facility] Comment on above: Performed By: #### M ALBR #### [facility] [address] [place] [address] [address] Maru Disla MG MAMM SCREEN 3D BALDO CADon 06-21-2022 MG MAMM SCREEN 3D BALDO CAD Patient: DENAE DIOR Exam Date: 06/21/2022 : 1960 Gender:F Ordering : [employer] Admission #: [id number] Family : Order #: [id number] CLICK HERE TO VIEW EXAM RADIOLOGY REPORT [...] breast cancer at age 64. LOCATION: [facility] BREAST COMPOSITION: Scattered areas fibroglandular density. FINDINGS: [...] MD on 06/21/2022 at 10:10 Normal [facility] HEMOGLOBINon 06-20-2022 Hemoglobin (Bld) [Mass/Vol] 15.1 g/dL Normal 12.0-16.0 [facility] Comment on above: Performed By: #### B MP #### [facility] [address] [place] [address] Dr. Maru Disla BNPon 04-09-2022 Natriuretic peptide B (Bld) [Mass/Vol] 824.0 pg/mL Normal <=900.0 [facility] Comment on above: Performed By: #### M ALBR #### [facility] [address] [place] [address] Dr. Maru Disla CARDIAC BREANNE ADMITon 022 CK [Catalytic activity/Vol] 364 U/L Critically high 26-192 [facility] Comment on above: Performed By: #### P OCGLUC #### [facility] [address] [place] [address] Dr. Maru Disla CK.MB [Mass/Vol] 5.60 ng/mL Critically high <=3.60 [facility] Comment on above: Performed By: #### P OCGLUC #### [facility] [address] [place] [address] Dr. Maru Disla HSTROP 454.7 pg/mL Critically high 4.0-51.3 [facility] Comment on above: Result Comment: CUT- OFF POINTS HAVE BEEN ESTABLISHED BASED ON THE FOURTH UNIVERSAL DEFINITIONS OF MYOCARDIAL INFARCTION. THE UPPER REFERENCE LIMIT (URL) OF TROPONIN, DEFINED THE 99TH PERCENTILE OF cTnI DISTRIBUTION IN A REFERENCE POPULATION, HAS BEEN CONFIRMED THE DECISION THRESHOLD FOR GA DIAGNOSIS. Performed By: #### P OCGLUC #### [facility] [address] [place] [address] Dr. Maru Disla REDD 137 ng/mL Critically high 9-82 [facility] Comment on above: Performed By: #### P OCGLUC #### [facility] [address] [address] [address] Maru Disla CBC AUTO DIFFon 04-09-2022 BASO # 0.0 103/ul Normal 0.0-0.1 [facility] Comment on above: Performed By: #### A BG #### [facility] [address] [address] [address] Maru Disla Basophils/100 WBC (Bld) 0.2 % Normal 0.2-2.0 [facility] Comment on above: Performed By: #### A BG #### [facility] [address] [address] [address] Maru Disla EO # 0.0 103/ul Normal 0.0-0.7 [facility] Comment on above: Performed By: #### A BG #### [facility] [address] [place] [address] Dr. Maru Disla Eosinophils/100 WBC (Bld) 0.0 % Critically low 0.9-7.0 [facility] Comment on above: Performed By: #### A BG #### [facility] [address] [place] [address] Dr. Maru Disla Erythrocyte distribution width (RBC) [Ratio] 13.4 % Normal 11.0-15.0 [facility] Comment on above: Performed By: #### A BG #### [facility] [address] [place] [address] Dr. Maru Disla Hematocrit (Bld) [Volume fraction] 48.3 % Critically high 36.0-48.0 [facility] Comment on above: Performed By: #### A BG #### [facility] [address] [place] [address] Dr. Maru Disla Hemoglobin (Bld) [Mass/Vol] 15.3 g/dL Normal 12.0-16.0 [facility] Comment on above: Performed By: #### A BG #### [facility] [address] [place] [address] Dr. Maru Disla IG # 0.11 10e3/ul Critically high 0.00-0.03 [facility] Comment on above: Performed By: #### A BG #### [facility] [address] [place] [address] Dr. Maru Disla IG % 0.6 % Critically high 0.0-0.5 [facility] Comment on above: Performed By: #### A BG #### [facility] [address] [place] [address] Dr. Maru Disla LYMPH # 1.1 103/ul Critically low 1.2-3.8 [facility] Comment on above: Performed By: #### A BG #### [facility] [address] [place] [address] Dr. Maru Disla Lymphocytes/100 WBC (Bld) 6.1 % Critically low 20.5-60.0 [facility] Comment on above: Performed By: #### A BG #### [facility] [address] [place] [address] Dr. Maru Disla MANUAL DIFF REQ NO Normal [facility] Comment on above: Performed By: #### A BG #### [facility] [address] [place] [address] Dr. Maru Disla MCH (RBC) [Entitic mass] 29.8 pg Normal 26.7-34.0 [facility] Comment on above: Performed By: #### A BG #### [facility] [address] [place] [address] Dr. Maru Disla MCHC (RBC) [Mass/Vol] 31.7 g/dL Normal 29.9-35.2 [facility] Comment on above: Performed By: #### A BG #### [facility] [address] [place] [address] Dr. Maru Disla MCV (RBC) [Entitic vol] 94.2 fL Normal 81.0-99.0 [facility] Comment on above: Performed By: #### A BG #### [facility] [address] [place] [address] Dr. Maru Disla MONO # 0.7 103/ul Normal 0.3-0.8 [facility] Comment on above: Performed By: #### A BG #### [facility] [address] [address] [address] Maru Disla Monocytes/100 WBC (Bld) 3.9 % Normal 1.7-12.0 [facility] Comment on above: Performed By: #### A BG #### [facility] [address] [place] [address] Dr. Maru Disla NEUT # 15.3 103/ul Critically high 1.4-6.5 [facility] Comment on above: Performed By: #### A BG #### [facility] [address] [place] [address] Dr. Maru Disla Neutrophils/100 WBC (Bld) 89.2 % Critically high 43.0-75.0 [facility] Comment on above: Performed By: #### A BG #### [facility] [address] [place] [address] Dr. Maru Disla Platelet mean volume (Bld) [Entitic vol] 10.4 fL Normal 9.5-13.5 [facility] Comment on above: Performed By: #### A BG #### [facility] [address] [place] [address] Dr. Maru Disla PLT 311 103/ul Normal 150-450 [facility] Comment on above: Performed By: #### A BG #### [facility] [address] [place] [address] Dr. Maru Disla RBC 5.13 106/ul Normal 4.20-5.40 [facility] Comment on above: Performed By: #### A BG #### [facility] [address] [place] [address] Dr. Maru Disla WBC 17.2 103/ul Critically high 4.0-11.0 [facility] Comment on above: Performed By: #### A BG #### [facility] [address] [place] [address] Dr. Maru Disla ECHOCARDIO M/2D COMPLETEon 1 06-09-2021 ECHOCARDIO M/2D COMPLETE Patient: DENAE DIOR Exam Date: 04/09/2022 : 1960 Gender:F Ordering : DR TERI BLOCK . Admission #: [id number] Family : Order #: [id number] CLICK HERE TO VIEW EXAM ECHOCARDIOGRAM REPORT [...] Subramanian M.D. on 04/10/2022 at 15:44 Normal [facility] POINT OF CARE GLUCOSEon 11-0 Glucose [Mass/Vol] 171 mg/dL Critically high 74-106 [facility] Comment on above: Performed By: #### P OCGLUC #### [facility] [address] [place] [address] Dr. Maru Disla Glucose [Mass/Vol] 97 mg/dL Normal 74-106 [facility] Comment on above: Performed By: #### M ALBR #### [facility] [address] [address] [address] Maru Disla PROF CHEM 8 (BAS METB)on Anion gap [Moles/Vol] 9.1 mmol/L Normal [facility] Comment on above: Performed By: #### P OCGLUC #### [facility] [address] [address] [address] Maru Disla Calcium [Mass/Vol] 8.7 mg/dL Normal 8.5-10.1 [facility] Comment on above: Performed By: #### P OCGLUC #### [facility] [address] [address] [address] Maru Disla Chloride [Moles/Vol] 104 mmol/L Normal 98-107 [facility] Comment on above: Performed By: #### P OCGLUC #### [facility] [address] [address] [address] Maru Disla CO2 [Moles/Vol] 33.2 mmol/L Critically high 21.0-32.0 [facility] Comment on above: Performed By: #### P OCGLUC #### [facility] [address] [address] [address] Maru Disla Creatinine [Mass/Vol] 0.87 mg/dL Normal 0.55-1.02 [facility] Comment on above: Performed By: #### P OCGLUC #### [facility] [address] [address] [address] Maru Disla EGFR-AF LUXEMBOURGER >60 Normal >=60 [facility] Comment on above: Performed By: #### P OCGLUC #### [facility] [address] [address] [address] Maru Disla EGFR-NON AF LUXEMBOURGER >60 Normal >=60 [facility] Comment on above: Performed By: #### P OCGLUC #### [facility] [address] [address] [address] Maru Disla Glucose [Mass/Vol] 115 mg/dL Critically high 74-106 [facility] Comment on above: Performed By: #### P OCGLUC #### [facility] [address] [address] [address] Maru Dilsa Potassium [Moles/Vol] 4.3 mmol/L Normal 3.5-5.1 [facility] Comment on above: Performed By: #### P OCGLUC #### [facility] [address] [address] [address] Maru Disla Sodium [Moles/Vol] 142 mmol/L Normal 136-145 [facility] Comment on above: Performed By: #### P OCGLUC #### [facility] [address] [place] [address] Dr. Maru Disla Urea nitrogen [Mass/Vol] 36.0 mg/dL Critically high 7.0-18.0 [facility] Comment on above: Performed By: #### P OCGLUC #### [facility] [address] [place] [address] Dr. Maru Disla Urea nitrogen/Creatinine [Mass ratio] 41.4 mg/mg Normal [facility] Comment on above: Performed By: #### P OCGLUC #### [facility] [address] [place] [address] Dr. Maru Disla CARDIAC BREANNE 3-6on 2 CK [Catalytic activity/Vol] 381 U/L Critically high 26-192 [facility] Comment on above: Performed By: #### C MREP #### [facility] [address] [place] [address] Dr. Maru Disla CK.MB [Mass/Vol] 7.91 ng/mL Critically high <=3.60 [facility] Comment on above: Performed By: #### C MREP #### [facility] [address] [place] [address] Dr. Maru Disla HSTROP 766.1 pg/mL Critically high 4.0-51.3 [facility] Comment on above: Result Comment: CUT- OFF POINTS HAVE BEEN ESTABLISHED BASED ON THE FOURTH UNIVERSAL DEFINITIONS OF MYOCARDIAL INFARCTION. THE UPPER REFERENCE LIMIT (URL) OF TROPONIN, DEFINED THE 99TH PERCENTILE OF cTnI DISTRIBUTION IN A REFERENCE POPULATION, HAS BEEN CONFIRMED THE DECISION THRESHOLD FOR GA DIAGNOSIS. Performed By: #### C MREP #### [facility] [address] [place] [address] Dr. Maru Disla CK [Catalytic activity/Vol] 356 U/L Critically high 26-192 [facility] Comment on above: Performed By: #### C MREP #### [facility] [address] [place] [address] Dr. Maru Disla CK.MB [Mass/Vol] 8.66 ng/mL Critically high <=3.60 [facility] Comment on above: Performed By: #### C MREP #### [facility] [address] [address] [address] Maru Disla HSTROP 610.6 pg/mL Critically high 4.0-51.3 [facility] Comment on above: Result Comment: CUT- OFF POINTS HAVE BEEN ESTABLISHED BASED ON THE FOURTH UNIVERSAL DEFINITIONS OF MYOCARDIAL INFARCTION. THE UPPER REFERENCE LIMIT (URL) OF TROPONIN, DEFINED THE 99TH PERCENTILE OF cTnI DISTRIBUTION IN A REFERENCE POPULATION, HAS BEEN CONFIRMED THE DECISION THRESHOLD FOR GA DIAGNOSIS. Performed By: #### C MREP #### [facility] [address] [address] [address] Maru Dilsa CARDIAC BREANNE ADMITon 022 CK [Catalytic activity/Vol] 381 U/L Critically high 26-192 [facility] Comment on above: Performed By: #### C MADM #### [facility] [address] [place] [address] Dr. Maru Disla CK.MB [Mass/Vol] 8.07 ng/mL Critically high <=3.60 [facility] Comment on above: Performed By: #### C MADM #### [facility] [address] [place] [address] Dr. Maru Disla HSTROP 220.2 pg/mL Critically high 4.0-51.3 [facility] Comment on above: Result Comment: CUT- OFF POINTS HAVE BEEN ESTABLISHED BASED ON THE FOURTH UNIVERSAL DEFINITIONS OF MYOCARDIAL INFARCTION. THE UPPER REFERENCE LIMIT (URL) OF TROPONIN, DEFINED THE 99TH PERCENTILE OF cTnI DISTRIBUTION IN A REFERENCE POPULATION, HAS BEEN CONFIRMED THE DECISION THRESHOLD FOR GA DIAGNOSIS. Performed By: #### C MADM #### [facility] [address] [place] [address] Dr. Maru Disla RDED 269 ng/mL Critically high 9-82 [facility] Comment on above: Performed By: #### C MADM #### [facility] [address] [place] [address] Dr. Maru Disla CBC AUTO DIFFon 04-08-2022 BASO # 0.0 103/ul Normal 0.0-0.1 [facility] Comment on above: Performed By: #### M ALBR #### [facility] [address] [address] [address] Maru Disla Basophils/100 WBC (Bld) 0.2 % Normal 0.2-2.0 [facility] Comment on above: Performed By: #### M ALBR #### [facility] [address] [place] [address] Dr. Maru Disla EO # 0.0 103/ul Normal 0.0-0.7 [facility] Comment on above: Performed By: #### M ALBR #### [facility] [address] [place] [address] Dr. Maru Disla Eosinophils/100 WBC (Bld) 0.0 % Critically low 0.9-7.0 [facility] Comment on above: Performed By: #### M ALBR #### [facility] [address] [place] [address] Dr. Maru Disla Erythrocyte distribution width (RBC) [Ratio] 13.4 % Normal 11.0-15.0 [facility] Comment on above: Performed By: #### M ALBR #### [facility] [address] [place] [address] Dr. Maru Disla Hematocrit (Bld) [Volume fraction] 52.7 % Critically high 36.0-48.0 [facility] Comment on above: Performed By: #### M ALBR #### [facility] [address] [place] [address] Dr. Maru Disla Hemoglobin (Bld) [Mass/Vol] 16.8 g/dL Critically high 12.0-16.0 [facility] Comment on above: Performed By: #### M ALBR #### [facility] [address] [place] [address] Dr. Maru Disla IG # 0.13 10e3/ul Critically high 0.00-0.03 [facility] Comment on above: Performed By: #### M ALBR #### [facility] [address] [place] [address] Dr. Maru Disla IG % 0.6 % Critically high 0.0-0.5 [facility] Comment on above: Performed By: #### M ALBR #### [facility] [address] [address] [address] Maru Disla LYMPH # 0.8 103/ul Critically low 1.2-3.8 [facility] Comment on above: Performed By: #### M ALBR #### [facility] [address] [address] [address] Maru Disla Lymphocytes/100 WBC (Bld) 3.4 % Critically low 20.5-60.0 [facility] Comment on above: Performed By: #### M ALBR #### [facility] [address] [address] [address] Maru Disla MANUAL DIFF REQ NO Normal [facility] Comment on above: Performed By: #### M ALBR #### [facility] [address] [place] [address] Dr. Maru Disla MCH (RBC) [Entitic mass] 29.4 pg Normal 26.7-34.0 [facility] Comment on above: Performed By: #### M ALBR #### [facility] [address] [address] [address] Maru Disla MCHC (RBC) [Mass/Vol] 31.9 g/dL Normal 29.9-35.2 [facility] Comment on above: Performed By: #### M ALBR #### [facility] [address] [place] [address] Dr. Maru Disla MCV (RBC) [Entitic vol] 92.1 fL Normal 81.0-99.0 [facility] Comment on above: Performed By: #### M ALBR #### [facility] [address] [address] [address] Maru Disla MONO # 0.8 103/ul Normal 0.3-0.8 [facility] Comment on above: Performed By: #### M ALBR #### [facility] [address] [address] [address] Maru Disla Monocytes/100 WBC (Bld) 3.4 % Normal 1.7-12.0 [facility] Comment on above: Performed By: #### M ALBR #### [facility] [address] [address] [address] Maru Disla NEUT # 21.8 103/ul Critically high 1.4-6.5 [facility] Comment on above: Performed By: #### M ALBR #### [facility] [address] [address] [address] Maru Disla Neutrophils/100 WBC (Bld) 92.4 % Critically high 43.0-75.0 [facility] Comment on above: Performed By: #### M ALBR #### [facility] [address] [address] [address] Maru Disla Platelet mean volume (Bld) [Entitic vol] 10.4 fL Normal 9.5-13.5 [facility] Comment on above: Performed By: #### M ALBR #### [facility] [address] [place] [address] Dr. Maru Disla PLT 335 103/ul Normal 150-450 [facility] Comment on above: Performed By: #### M ALBR #### [facility] [address] [place] [address] Dr. Maru Disla RBC 5.72 106/ul Critically high 4.20-5.40 [facility] Comment on above: Performed By: #### M ALBR #### [facility] [address] [place] [address] Dr. Maru Disla WBC 23.5 103/ul Critically high 4.0-11.0 [facility] Comment on above: Performed By: #### M ALBR #### [facility] [address] [place] [address] Dr. Maru Disla POINT OF CARE GLUCOSEon - Glucose [Mass/Vol] 275 mg/dL Critically high 74-106 [facility] Comment on above: Performed By: #### P OCGLUC #### [facility] [address] [place] [address] Dr. Maru Disla Glucose [Mass/Vol] 161 mg/dL Critically high 74-106 [facility] Comment on above: Performed By: #### B MP #### [facility] [address] [address] [address] Maru Disla Glucose [Mass/Vol] 140 mg/dL Critically high 74-106 [facility] Comment on above: Performed By: #### P OCGLUC #### [facility] [address] [address] [address] Maru Disla Glucose [Mass/Vol] 219 mg/dL Critically high 74-106 [facility] Comment on above: Performed By: #### P OCGLUC #### [facility] [address] [place] [address] Dr. Maru Disla PROF CHEM 8 (BAS METB)on Anion gap [Moles/Vol] 14.0 mmol/L Normal [facility] Comment on above: Performed By: #### M ALBR #### [facility] [address] [place] [address] Dr. Maru Disla Calcium [Mass/Vol] 9.3 mg/dL Normal 8.5-10.1 [facility] Comment on above: Performed By: #### M ALBR #### [facility] [address] [place] [address] Dr. Maru Disla Chloride [Moles/Vol] 98 mmol/L Normal 98-107 [facility] Comment on above: Performed By: #### M ALBR #### [facility] [address] [place] [address] Dr. Maru Disla CO2 [Moles/Vol] 30.5 mmol/L Normal 21.0-32.0 [facility] Comment on above: Performed By: #### M ALBR #### [facility] [address] [place] [address] Dr. Maru Disla Creatinine [Mass/Vol] 1.09 mg/dL Critically high 0.55-1.02 [facility] Comment on above: Performed By: #### M ALBR #### [facility] [address] [place] [address] Dr. Maru Disla EGFR-AF LUXEMBOURGER >60 Normal >=60 [facility] Comment on above: Performed By: #### M ALBR #### [facility] [address] [address] [address] Maru Disla EGFR-NON AF LUXEMBOURGER 51 mL/min/1.73m2 Critically low >=60 [facility] Comment on above: Performed By: #### M ALBR #### [facility] [address] [address] [address] Maru Disla Glucose [Mass/Vol] 242 mg/dL Critically high 74-106 [facility] Comment on above: Performed By: #### M ALBR #### [facility] [address] [address] [address] Maru Disla Potassium [Moles/Vol] 3.5 mmol/L Normal 3.5-5.1 [facility] Comment on above: Performed By: #### M ALBR #### [facility] [address] [place] [address] Dr. Maru Disla Sodium [Moles/Vol] 139 mmol/L Normal 136-145 [facility] Comment on above: Performed By: #### M ALBR #### [facility] [address] [address] [address] Maru Disla Urea nitrogen [Mass/Vol] 32.0 mg/dL Critically high 7.0-18.0 [facility] Comment on above: Performed By: #### M ALBR #### [facility] [address] [address] [address] Maru Disla Urea nitrogen/Creatinine [Mass ratio] 29.4 mg/mg Normal [facility] Comment on above: Performed By: #### M ALBR #### [facility] [address] [address] [address] Maru Disla CBC AUTO DIFFon 04-07-2022 BASO # 0.0 103/ul Normal 0.0-0.1 [facility] Comment on above: Performed By: #### P OCGLUC #### [facility] [address] [address] [address] Maru Disla Basophils/100 WBC (Bld) 0.2 % Normal 0.2-2.0 [facility] Comment on above: Performed By: #### P OCGLUC #### [facility] [address] [address] [address] Maru Disla EO # 0.0 103/ul Normal 0.0-0.7 [facility] Comment on above: Performed By: #### P OCGLUC #### [facility] [address] [address] [address] Maru Dsila Eosinophils/100 WBC (Bld) 0.0 % Critically low 0.9-7.0 [facility] Comment on above: Performed By: #### P OCGLUC #### [facility] [address] [address] [address] Maru Disla Erythrocyte distribution width (RBC) [Ratio] 13.6 % Normal 11.0-15.0 [facility] Comment on above: Performed By: #### P OCGLUC #### [facility] [address] [place] [address] Dr. Maru Disla Hematocrit (Bld) [Volume fraction] 48.1 % Critically high 36.0-48.0 [facility] Comment on above: Performed By: #### P OCGLUC #### [facility] [address] [place] [address] Dr. Maru Disla Hemoglobin (Bld) [Mass/Vol] 14.7 g/dL Normal 12.0-16.0 [facility] Comment on above: Performed By: #### P OCGLUC #### [facility] [address] [address] [address] Maru Disla IG # 0.16 10e3/ul Critically high 0.00-0.03 [facility] Comment on above: Performed By: #### P OCGLUC #### [facility] [address] [address] [address] Maru Disla IG % 0.6 % Critically high 0.0-0.5 [facility] Comment on above: Performed By: #### P OCGLUC #### [facility] [address] [address] [address] Maru Disla LYMPH # 1.0 103/ul Critically low 1.2-3.8 [facility] Comment on above: Performed By: #### P OCGLUC #### [facility] [address] [address] [address] Maru Disla Lymphocytes/100 WBC (Bld) 4.1 % Critically low 20.5-60.0 [facility] Comment on above: Performed By: #### P OCGLUC #### [facility] [address] [address] [address] Maru Disla MANUAL DIFF REQ NO Normal [facility] Comment on above: Performed By: #### P OCGLUC #### [facility] [address] [address] [address] Maru Disla MCH (RBC) [Entitic mass] 29.4 pg Normal 26.7-34.0 [facility] Comment on above: Performed By: #### P OCGLUC #### [facility] [address] [place] [address] Dr. Maru Disla MCHC (RBC) [Mass/Vol] 30.6 g/dL Normal 29.9-35.2 [facility] Comment on above: Performed By: #### P OCGLUC #### [facility] [address] [place] [address] Dr. Maru Disla MCV (RBC) [Entitic vol] 96.2 fL Normal 81.0-99.0 [facility] Comment on above: Performed By: #### P OCGLUC #### [facility] [address] [place] [address] Dr. Maru Disla MONO # 0.8 103/ul Normal 0.3-0.8 [facility] Comment on above: Performed By: #### P OCGLUC #### [facility] [address] [place] [address] Dr. Maru Disla Monocytes/100 WBC (Bld) 3.2 % Normal 1.7-12.0 [facility] Comment on above: Performed By: #### P OCGLUC #### [facility] [address] [place] [address] Dr. Maru Disla NEUT # 23.1 103/ul Critically high 1.4-6.5 [facility] Comment on above: Performed By: #### P OCGLUC #### [facility] [address] [address] [address] Maru Disla Neutrophils/100 WBC (Bld) 91.9 % Critically high 43.0-75.0 [facility] Comment on above: Performed By: #### P OCGLUC #### [facility] [address] [address] [address] Maru Disla Platelet mean volume (Bld) [Entitic vol] 10.5 fL Normal 9.5-13.5 [facility] Comment on above: Performed By: #### P OCGLUC #### [facility] [address] [address] [address] Maru Disla PLT 300 103/ul Normal 150-450 [facility] Comment on above: Performed By: #### P OCGLUC #### [facility] [address] [address] [address] Maru Disla RBC 5.00 106/ul Normal 4.20-5.40 [facility] Comment on above: Performed By: #### P OCGLUC #### [facility] [address] [address] [address] Maru Disla WBC 25.1 103/ul Critically high 4.0-11.0 [facility] Comment on above: Performed By: #### P OCGLUC #### [facility] [address] [address] [address] Maru Disla POINT OF CARE GLUCOSEon Glucose [Mass/Vol] 247 mg/dL Critically high 74-106 [facility] Comment on above: Performed By: #### B MP #### [facility] [address] [address] [address] Maru Disla Glucose [Mass/Vol] 182 mg/dL Critically high -106 [facility] Comment on above: Performed By: #### A BG #### [facility] [address] [address] [address] Maru Disla Glucose [Mass/Vol] 177 mg/dL Critically high 74-106 [facility] Comment on above: Performed By: #### P OCGLUC #### [facility] [address] [address] [address] Maru Disla Glucose [Mass/Vol] 191 mg/dL Critically high 74-106 [facility] Comment on above: Performed By: #### P OCGLUC #### [facility] [address] [address] [address] Maru Disla PROF CHEM 8 (BAS METB)on Anion gap [Moles/Vol] 11.4 mmol/L Normal [facility] Comment on above: Performed By: #### M ALBR #### [facility] [address] [place] [address] Dr. Maru Disla Calcium [Mass/Vol] 8.9 mg/dL Normal 8.5-10.1 [facility] Comment on above: Performed By: #### M ALBR #### [facility] [address] [place] [address] Dr. Maru Disla Chloride [Moles/Vol] 108 mmol/L Critically high 98-107 [facility] Comment on above: Performed By: #### M ALBR #### [facility] [address] [place] [address] Dr. Maru Disla CO2 [Moles/Vol] 27.9 mmol/L Normal 21.0-32.0 [facility] Comment on above: Performed By: #### M ALBR #### [facility] [address] [place] [address] Dr. Maru Disla Creatinine [Mass/Vol] 0.84 mg/dL Normal 0.55-1.02 [facility] Comment on above: Performed By: #### M ALBR #### [facility] [address] [place] [address] Dr. Maru Disla EGFR-AF LUXEMBOURGER >60 Normal >=60 [facility] Comment on above: Performed By: #### M ALBR #### [facility] [address] [place] [address] Dr. Maru Disla EGFR-NON AF LUXEMBOURGER >60 Normal >=60 [facility] Comment on above: Performed By: #### M ALBR #### [facility] [address] [address] [address] Maru Disla Glucose [Mass/Vol] 202 mg/dL Critically high 74-106 [facility] Comment on above: Performed By: #### M ALBR #### [facility] [address] [address] [address] Maru Disla Potassium [Moles/Vol] 4.3 mmol/L Normal 3.5-5.1 [facility] Comment on above: Performed By: #### M ALBR #### [facility] [address] [address] [address] Maru Disla Sodium [Moles/Vol] 143 mmol/L Normal 136-145 [facility] Comment on above: Performed By: #### M ALBR #### [facility] [address] [address] [address] Maru Disla Urea nitrogen [Mass/Vol] 26.0 mg/dL Critically high 7.0-18.0 [facility] Comment on above: Performed By: #### M ALBR #### [facility] [address] [address] [address] Maru Disla Urea nitrogen/Creatinine [Mass ratio] 31.0 mg/mg Normal [facility] Comment on above: Performed By: #### M ALBR #### [facility] [address] [address] [address] Maru Disla CBC AUTO DIFFon 04-06-2022 BASO # 0.0 103/ul Normal 0.0-0.1 [facility] Comment on above: Performed By: #### B MP #### [facility] [address] [address] [address] Maru Disla Basophils/100 WBC (Bld) 0.1 % Critically low 0.2-2.0 [facility] Comment on above: Performed By: #### B MP #### [facility] [address] [address] [address] Maru Disla EO # 0.0 103/ul Normal 0.0-0.7 [facility] Comment on above: Performed By: #### B MP #### [facility] [address] [place] [address] Dr. Maru Disla Eosinophils/100 WBC (Bld) 0.1 % Critically low 0.9-7.0 [facility] Comment on above: Performed By: #### B MP #### [facility] [address] [place] [address] Dr. Maru Disla Erythrocyte distribution width (RBC) [Ratio] 13.4 % Normal 11.0-15.0 [facility] Comment on above: Performed By: #### B MP #### [facility] [address] [place] [address] Dr. Maru Disla Hematocrit (Bld) [Volume fraction] 48.5 % Critically high 36.0-48.0 [facility] Comment on above: Performed By: #### B MP #### [facility] [address] [place] [address] Dr. Maru Disla Hemoglobin (Bld) [Mass/Vol] 15.5 g/dL Normal 12.0-16.0 [facility] Comment on above: Performed By: #### B MP #### [facility] [address] [place] [address] Dr. Maru Disla IG # 0.09 10e3/ul Critically high 0.00-0.03 [facility] Comment on above: Performed By: #### B MP #### [facility] [address] [place] [address] Dr. Maru Disla IG % 0.5 % Normal 0.0-0.5 [facility] Comment on above: Performed By: #### B MP #### [facility] [address] [place] [address] Dr. Maru Disla LYMPH # 0.9 103/ul Critically low 1.2-3.8 [facility] Comment on above: Performed By: #### B MP #### [facility] [address] [place] [address] Dr. Maru Disla Lymphocytes/100 WBC (Bld) 4.5 % Critically low 20.5-60.0 [facility] Comment on above: Performed By: #### B MP #### [facility] [address] [place] [address] Dr. Maru Disla MANUAL DIFF REQ NO Normal [facility] Comment on above: Performed By: #### B MP #### [facility] [address] [place] [address] Dr. Maru Disla MCH (RBC) [Entitic mass] 30.0 pg Normal 26.7-34.0 [facility] Comment on above: Performed By: #### B MP #### [facility] [address] [place] [address] Dr. Maru Disla MCHC (RBC) [Mass/Vol] 32.0 g/dL Normal 29.9-35.2 [facility] Comment on above: Performed By: #### B MP #### [facility] [address] [place] [address] Dr. Maru Disla MCV (RBC) [Entitic vol] 93.8 fL Normal 81.0-99.0 [facility] Comment on above: Performed By: #### B MP #### [facility] [address] [place] [address] Dr. Maru Disla MONO # 0.7 103/ul Normal 0.3-0.8 [facility] Comment on above: Performed By: #### B MP #### [facility] [address] [place] [address] Dr. Maru Disla Monocytes/100 WBC (Bld) 3.5 % Normal 1.7-12.0 [facility] Comment on above: Performed By: #### B MP #### [facility] [address] [place] [address] Dr. Maru Disla NEUT # 18.2 103/ul Critically high 1.4-6.5 [facility] Comment on above: Performed By: #### B MP #### [facility] [address] [place] [address] Dr. Maru Disla Neutrophils/100 WBC (Bld) 91.3 % Critically high 43.0-75.0 [facility] Comment on above: Performed By: #### B MP #### [facility] [address] [address] [address] Maru Disla Platelet mean volume (Bld) [Entitic vol] 11.2 fL Normal 9.5-13.5 [facility] Comment on above: Performed By: #### B MP #### [facility] [address] [address] [address] Maru Disla PLT 232 103/ul Normal 150-450 [facility] Comment on above: Performed By: #### B MP #### [facility] [address] [address] [address] Maru Disla RBC 5.17 106/ul Normal 4.20-5.40 [facility] Comment on above: Performed By: #### B MP #### [facility] [address] [place] [address] Dr. Maru Disla WBC 19.9 103/ul Critically high 4.0-11.0 [facility] Comment on above: Performed By: #### B MP #### [facility] [address] [address] [address] Maru Disla POINT OF CARE GLUCOSEon - Glucose [Mass/Vol] 199 mg/dL Critically high -106 [facility] Comment on above: Performed By: #### P OCGLUC #### [facility] [address] [address] [address] Maru Disla Glucose [Mass/Vol] 109 mg/dL Critically high 74-106 [facility] Comment on above: Performed By: #### A BG #### [facility] [address] [address] [address] Maru Disla Glucose [Mass/Vol] 253 mg/dL Critically high -106 [facility] Comment on above: Performed By: #### P OCGLUC #### [facility] [address] [address] [address] Maru Disla Glucose [Mass/Vol] 194 mg/dL Critically high -106 [facility] Comment on above: Performed By: #### B MP #### [facility] [address] [address] [address] Maru Disla PROF CHEM 8 (BAS METB)on Anion gap [Moles/Vol] 11.2 mmol/L Normal [facility] Comment on above: Performed By: #### B MP #### [facility] [address] [address] [address] Maru Disla Calcium [Mass/Vol] 8.8 mg/dL Normal 8.5-10.1 [facility] Comment on above: Performed By: #### B MP #### [facility] [address] [address] [address] Maru Disla Chloride [Moles/Vol] 105 mmol/L Normal 98-107 [facility] Comment on above: Performed By: #### B MP #### [facility] [address] [address] [address] Maru Disla CO2 [Moles/Vol] 26.8 mmol/L Normal 21.0-32.0 [facility] Comment on above: Performed By: #### B MP #### [facility] [address] [address] [address] Maru Disla Creatinine [Mass/Vol] 0.66 mg/dL Normal 0.55-1.02 [facility] Comment on above: Performed By: #### B MP #### [facility] [address] [address] [address] Maru Disla EGFR-AF LUXEMBOURGER >60 Normal >=60 [facility] Comment on above: Performed By: #### B MP #### [facility] [address] [address] [address] Maru Disla EGFR-NON AF LUXEMBOURGER >60 Normal >=60 [facility] Comment on above: Performed By: #### B MP #### [facility] [address] [address] [address] Maru Disla Glucose [Mass/Vol] 191 mg/dL Critically high 74-106 [facility] Comment on above: Performed By: #### B MP #### [facility] [address] [address] [address] Maru Disla Potassium [Moles/Vol] 5.0 mmol/L Normal 3.5-5.1 [facility] Comment on above: Performed By: #### B MP #### [facility] [address] [address] [address] Maru Disla Sodium [Moles/Vol] 138 mmol/L Normal 136-145 [facility] Comment on above: Performed By: #### B MP #### [facility] [address] [address] [address] Maru Disla Urea nitrogen [Mass/Vol] 21.0 mg/dL Critically high 7.0-18.0 [facility] Comment on above: Performed By: #### B MP #### [facility] [address] [address] [address] Maru Disla Urea nitrogen/Creatinine [Mass ratio] 31.8 mg/mg Normal [facility] Comment on above: Performed By: #### B MP #### [facility] [address] [address] [address] Maru Disla XR CHEST 2 Von [...] CORINE ANGELA Date: 2022-04-06 07:14 Normal [facility] BLOOD GASES BTYon 04-05-2022 02 MODE NASAL CANNULA Normal [facility] Comment on above: Performed By: #### A BG #### [facility] [address] [address] [address] Maru Disla ALLENS TEST Positive Normal [facility] Comment on above: Performed By: #### A BG #### [facility] [address] [address] [address] Maru Disla Base excess Calc (Bld) [Moles/Vol] -1.6000 mmol/L Normal -2.0-2.0 [facility] Comment on above: Performed By: #### A BG #### [facility] [address] [address] [address] Maru Disla BIPAP PRESSURE [facility] Comment on above: Performed By: #### A BG #### [facility] [address] [place] [address] Dr. Maru Disla CPAP [facility] Comment on above: Performed By: #### A BG #### [facility] [address] [place] [address] Dr. Maru Disla FIO2 [facility] Comment on above: Performed By: #### A BG #### [facility] [address] [address] [address] Maru Disla HCO3 (Bld) [Moles/Vol] 24.0 mmol/L Normal 22.0-26.0 [facility] Comment on above: Performed By: #### A BG #### [facility] [address] [place] [address] Dr. Maru Disla LPM 2 [facility] Comment on above: Performed By: #### A BG #### [facility] [address] [place] [address] Dr. Maru Disla MINUTE VOLUME Normal [facility] Comment on above: Performed By: #### A BG #### [facility] [address] [place] [address] Dr. Maru Disla Oxygen (Bld) [Partial pressure] 56.1 mm[Hg] Critically low 80.0-100.0 [facility] Comment on above: Performed By: #### A BG #### [facility] [address] [place] [address] Dr. Maru Disla Oxygen saturation in Blood 89.9 % Critically low 95.0-100.0 [facility] Comment on above: Performed By: #### A BG #### [facility] [address] [address] [address] Maru Disla PCO2 43.3 mmHg Normal 35.0-45.0 [facility] Comment on above: Performed By: #### A BG #### [facility] [address] [place] [address] Dr. Maru Disla PEEP [facility] Comment on above: Performed By: #### A BG #### [facility] [address] [place] [address] Dr. Maru Disla pH (Bld) 7.352 [pH] Normal 7.350-7.450 [facility] Comment on above: Performed By: #### A BG #### [facility] [address] [place] [address] Dr. Maru Disla [facility] Comment on above: Performed By: #### A BG #### [facility] [address] [place] [address] [facility] Comment on above: Performed By: #### A BG #### [facility] [address] [place] [address] Dr. Maru Disla PUNCTURE SITE LR [facility] Comment on above: Performed By: #### A BG #### [facility] [address] [place] [address] Dr. Maru Disla RATE [facility] Comment on above: Performed By: #### A BG #### [facility] [address] [place] [address] Dr. Maru Disla VENT MODE [facility] Comment on above: Performed By: #### A BG #### [facility] [address] [place] [address] Dr. Maru Disla [facility] Comment on above: Performed By: #### A BG #### [facility] [address] [place] [address] Dr. Maru Disla BNPon 04-05-2022 Natriuretic peptide B (Bld) [Mass/Vol] 471.0 pg/mL Normal <=900.0 [facility] Comment on above: Performed By: #### P OCGLUC #### [facility] [address] [address] [address] Maru Disla CBC AUTO DIFFon 04-05-2022 BASO # 0.0 103/ul Normal 0.0-0.1 [facility] Comment on above: Performed By: #### B MP #### [facility] [address] [address] [address] Maru Disla Basophils/100 WBC (Bld) 0.3 % Normal 0.2-2.0 [facility] Comment on above: Performed By: #### B MP #### [facility] [address] [address] [address] Maru Disla EO # 0.0 103/ul Normal 0.0-0.7 [facility] Comment on above: Performed By: #### B MP #### [facility] [address] [place] [address] Dr. Maru Disla Eosinophils/100 WBC (Bld) 0.0 % Critically low 0.9-7.0 [facility] Comment on above: Performed By: #### B MP #### [facility] [address] [place] [address] Dr. Maru Disla Erythrocyte distribution width (RBC) [Ratio] 13.2 % Normal 11.0-15.0 [facility] Comment on above: Performed By: #### B MP #### [facility] [address] [place] [address] Dr. Maru Disla Hematocrit (Bld) [Volume fraction] 52.3 % Critically high 36.0-48.0 [facility] Comment on above: Performed By: #### B MP #### [facility] [address] [place] [address] Dr. Maru Disla Hemoglobin (Bld) [Mass/Vol] 16.6 g/dL Critically high 12.0-16.0 [facility] Comment on above: Performed By: #### B MP #### [facility] [address] [place] [address] Dr. Maru Disla IG # 0.05 10e3/ul Critically high 0.00-0.03 [facility] Comment on above: Performed By: #### B MP #### [facility] [address] [place] [address] Dr. Maru Disal IG % 0.4 % Normal 0.0-0.5 [facility] Comment on above: Performed By: #### B MP #### [facility] [address] [place] [address] Dr. Maru Disla LYMPH # 1.5 103/ul Normal 1.2-3.8 [facility] Comment on above: Performed By: #### B MP #### [facility] [address] [place] [address] Dr. Maru Disla Lymphocytes/100 WBC (Bld) 10.7 % Critically low 20.5-60.0 [facility] Comment on above: Performed By: #### B MP #### [facility] [address] [place] [address] Dr. Maru Disla MANUAL DIFF REQ NO Normal [facility] Comment on above: Performed By: #### B MP #### [facility] [address] [place] [address] Dr. Maru Disla MCH (RBC) [Entitic mass] 29.7 pg Normal 26.7-34.0 [facility] Comment on above: Performed By: #### B MP #### [facility] [address] [place] [address] Dr. Maru Disla MCHC (RBC) [Mass/Vol] 31.7 g/dL Normal 29.9-35.2 [facility] Comment on above: Performed By: #### B MP #### [facility] [address] [place] [address] Dr. Maru Disla MCV (RBC) [Entitic vol] 93.6 fL Normal 81.0-99.0 [facility] Comment on above: Performed By: #### B MP #### [facility] [address] [place] [address] Dr. Maru Disla MONO # 1.5 103/ul Critically high 0.3-0.8 [facility] Comment on above: Performed By: #### B MP #### [facility] [address] [address] [address] Maru Disla Monocytes/100 WBC (Bld) 11.0 % Normal 1.7-12.0 [facility] Comment on above: Performed By: #### B MP #### [facility] [address] [address] [address] Maru Disla NEUT # 10.8 103/ul Critically high 1.4-6.5 [facility] Comment on above: Performed By: #### B MP #### [facility] [address] [address] [address] Maru Disla Neutrophils/100 WBC (Bld) 77.6 % Critically high 43.0-75.0 [facility] Comment on above: Performed By: #### B MP #### [facility] [address] [place] [address] Dr. Maru Disla Platelet mean volume (Bld) [Entitic vol] 10.1 fL Normal 9.5-13.5 [facility] Comment on above: Performed By: #### B MP #### [facility] [address] [place] [address] Dr. Maru Disla PLT 315 103/ul Normal 150-450 [facility] Comment on above: Performed By: #### B MP #### [facility] [address] [place] [address] Dr. Maru Disla RBC 5.59 106/ul Critically high 4.20-5.40 [facility] Comment on above: Performed By: #### B MP #### [facility] [address] [place] [address] Dr. Maru Disla WBC 13.9 103/ul Critically high 4.0-11.0 [facility] Comment on above: Performed By: #### B MP #### [facility] [address] [place] [address] Dr. Maru Disla CULTURE BLOODon 04-05-2022 Microscopic examination of blood, culture Culture Observations: NO GROWTH AT 5 DAYS. Normal [facility] Comment on above: Performed By: #### B MP #### [facility] [address] [place] [address] Dr. Maru Disla [facility]on SARS-CoV-2 (COVID-19) RNA NICOLETTE+probe Ql (Unsp spec) Not detected Normal NOT DETECTED [facility] Comment on above: Result Comment: When diagnostic [...] for this test is supported by the Housekeeper Head of Health and Human Service's declaration that [...] used). Performed By: #### M ALBR #### [facility] [address] [place] [address] Dr. Maru Disla INFLUENZA A AND B AGon 04-05 INFLUENZA A AG Negative Normal NEGATIVE SEE COMMENT [facility] Comment on above: Performed By: #### P OCGLUC #### [facility] [address] [place] [address] Dr. Maru Disla INFLUENZA B AG Negative Normal NEGATIVE SEE COMMENT [facility] Comment on above: Performed By: #### P OCGLUC #### [facility] [address] [place] [address] Dr. Maru Disla INTERNAL CONTROLS Within Normal Limits Normal Wi thin Normal Limits [facility] Comment on above: Performed By: #### P OCGLUC #### [facility] [address] [place] [address] Dr. Maru Disla LACTATE/LACTIC ACIDon 2021 Lactate [Moles/Vol] 3.1 mmol/L Critically high 0.4-1.9 [facility] Comment on above: Performed By: #### L ACT #### [facility] [address] [place] [address] Dr. Maru Disla Lactate [Moles/Vol] 3.1 mmol/L Critically high 0.4-1.9 [facility] Comment on above: Performed By: #### B MP #### [facility] [address] [place] [address] Dr. Maru Disla POINT OF CARE GLUCOSEon 11-0 Glucose [Mass/Vol] 290 mg/dL Critically high 74-106 [facility] Comment on above: Performed By: #### M ALBR #### [facility] [address] [place] [address] Dr. Maru Disla Glucose [Mass/Vol] 309 mg/dL Critically high 74-106 [facility] Comment on above: Performed By: #### A BG #### [facility] [address] [place] [address] Dr. Maru Disla Glucose [Mass/Vol] 289 mg/dL Critically high 74-106 [facility] Comment on above: Performed By: #### P OCGLUC #### [facility] [address] [place] [address] Dr. Maru Disla Glucose [Mass/Vol] 325 mg/dL Critically high -106 [facility] Comment on above: Performed By: #### M ALBR #### [facility] [address] [place] [address] Dr. Maru Disla PROF 14(COMP METB)on 022 Albumin [Mass/Vol] 3.3 g/dL Critically low 3.4-5.0 [facility] Comment on above: Performed By: #### P OCGLUC #### [facility] [address] [place] [address] Dr. Maru Disla Albumin/Globulin [Mass ratio] 0.7 {ratio} Normal [facility] Comment on above: Performed By: #### P OCGLUC #### [facility] [address] [place] [address] Dr. Maru Disla ALP [Catalytic activity/Vol] 105 U/L Normal 46-116 [facility] Comment on above: Performed By: #### P OCGLUC #### [facility] [address] [address] [address] Maru [employer] ALT [Catalytic activity/Vol] 15 U/L Normal 14-59 [facility] Comment on above: Performed By: #### P OCGLUC #### [facility] [address] [address] [address] Maru Disla Anion gap [Moles/Vol] 13.2 mmol/L Normal [facility] Comment on above: Performed By: #### P OCGLUC #### [facility] [address] [address] [address] Maru Disla AST [Catalytic activity/Vol] 12 U/L Critically low 15-37 [facility] Comment on above: Performed By: #### P OCGLUC #### [facility] [address] [address] [address] Maru Disla Bilirubin [Mass/Vol] 0.4 mg/dL Normal 0.2-1.0 [facility] Comment on above: Performed By: #### P OCGLUC #### [facility] [address] [address] [address] Maru Disla Calcium [Mass/Vol] 8.8 mg/dL Normal 8.5-10.1 [facility] Comment on above: Performed By: #### P OCGLUC #### [facility] [address] [address] [address] Maru Disla Chloride [Moles/Vol] 101 mmol/L Normal 98-107 [facility] Comment on above: Performed By: #### P OCGLUC #### [facility] [address] [address] [address] Maru Disla CO2 [Moles/Vol] 26.0 mmol/L Normal 21.0-32.0 [facility] Comment on above: Performed By: #### P OCGLUC #### [facility] [address] [address] [address] Maru Disla Creatinine [Mass/Vol] 1.03 mg/dL Critically high 0.55-1.02 [facility] Comment on above: Performed By: #### P OCGLUC #### [facility] [address] [address] [address] Maru Disla EGFR-AF LUXEMBOURGER >60 Normal >=60 [facility] Comment on above: Performed By: #### P OCGLUC #### [facility] [address] [address] [address] Maru Disla EGFR-NON AF LUXEMBOURGER 54 mL/min/1.73m2 Critically low >=60 [facility] Comment on above: Performed By: #### P OCGLUC #### [facility] [address] [address] [address] Maru Disla Globulin (S) [Mass/Vol] 4.5 g/dL Normal [facility] Comment on above: Performed By: #### P OCGLUC #### [facility] [address] [address] [address] Maru Disla Glucose [Mass/Vol] 264 mg/dL Critically high 74-106 [facility] Comment on above: Performed By: #### P OCGLUC #### [facility] [address] [address] [address] Maru Disla Potassium [Moles/Vol] 4.2 mmol/L Normal 3.5-5.1 [facility] Comment on above: Performed By: #### P OCGLUC #### [facility] [address] [address] [address] Maru Disla Protein [Mass/Vol] 7.8 g/dL Normal 6.4-8.2 [facility] Comment on above: Performed By: #### P OCGLUC #### [facility] [address] [address] [address] Maru Disla Sodium [Moles/Vol] 136 mmol/L Normal 136-145 [facility] Comment on above: Performed By: #### P OCGLUC #### [facility] [address] [address] [address] Maru Disla Urea nitrogen [Mass/Vol] 14.0 mg/dL Normal 7.0-18.0 [facility] Comment on above: Performed By: #### P OCGLUC #### [facility] [address] [place] [address] Dr. Maru Disla Urea nitrogen/Creatinine [Mass ratio] 13.6 mg/mg Normal [facility] Comment on above: Performed By: #### P OCGLUC #### [facility] [address] [address] [address] Maru Disla TROPONIN, HIGH SENSITIVITYon 04-05-2022 HSTROP 10.5 pg/mL Normal 4.0-51.3 [facility] Comment on above: Result Comment: CUT- OFF POINTS HAVE BEEN ESTABLISHED BASED ON THE FOURTH UNIVERSAL DEFINITIONS OF MYOCARDIAL INFARCTION. THE UPPER REFERENCE LIMIT (URL) OF TROPONIN, DEFINED THE 99TH PERCENTILE OF cTnI DISTRIBUTION IN A REFERENCE POPULATION, HAS BEEN CONFIRMED THE DECISION THRESHOLD FOR GA DIAGNOSIS. Performed By: #### A BG #### [facility] [address] [place] [address] Dr. Maru Disla XR CHEST 1 Von [...] by: YECENIA MONTERO Date: 2022-04-05 06:51 Normal [facility] Vital Signs Date Time Vital Sign Value Performing Clinician Facility 12-14-2024 11:31-0400 Body mass index (BMI) [Ratio] 26.95 kg/m2 Maira Rush [employer] Work Phone: [facility] 12-14-2024 11:31-0400 Body temperature 98.1 [degF] Maira Rush [employer] Work Phone: [facility] 12-14-2024 11:31-0400 Body weight 75.75 kg Maira Rush [employer] Work Phone: [facility] 12-14-2024 11:31-0400 Diastolic blood pressure 80 mm[Hg] Maira Aichholz [employer] Work Phone: [facility] 12-14-2024 11:31-0400 Heart rate 93 /min Maira Aichholz [employer] Work Phone: [facility] 12-14-2024 11:31-0400 Respiratory rate 22 /min Maira Aichholz [employer] Work Phone: [facility] 12-14-2024 11:31-0400 SaO2% (BldA) [Mass fraction] 93 % Maira Aichholz [employer]IST[employer] Work Phone: [facility] 12-14-2024 11:31-0400 Systolic blood pressure 122 mm[Hg] Maira Aichholz [employer] TE[employer]IST[employer] Work Phone: [facility] 12-01-2024 13:49-0400 Body mass index (BMI) [Ratio] 27.73 kg/m2 Maira Aichholz [employer] Work Phone: [facility] 12-01-2024 13:49-0400 Body temperature 98.29 [degF] Maira Aichholz [employer] TE[employer] Work Phone: [facility] 12-01-2024 13:49-0400 Body weight 77.93 kg Maira Aichholz [employer] TE[employer]IST[employer] Work Phone: [facility] 12-01-2024 13:49-0400 Diastolic blood pressure 70 mm[Hg] Maira Aichholz [employer] TE[employer] Work Phone: [facility] 12-01-2024 13:49-0400 Heart rate 101 /min Maira Aichholz [employer] Work Phone: [facility] 12-01-2024 13:49-0400 Respiratory rate 18 /min Maira Aichholz [employer] TE[employer]IST[employer] Work Phone: [facility] 12-01-2024 13:49-0400 SaO2% (BldA) [Mass fraction] 95 % Maira Aichholz [employer] TE[employer]ER ASSIST[employer] Work Phone: [facility] 12-01-2024 13:49-0400 Systolic blood pressure 110 mm[Hg] Maira Aichholz [employer] TE[employer]ER ASSIST[employer] Work Phone: [facility] 10-14-2024 14:25-0400 Body mass index (BMI) [Ratio] 30.38 kg/m2 Maira Aichholz [employer] Work Phone: [facility] 10-14-2024 14:25-0400 Body temperature 98.1 [degF] Maira Yoonholz [employer] TE[employer]ER [employer]IST[employer] Work Phone: [facility] 10-14-2024 14:25-0400 Body weight 85.37 kg Maira Yoonholz [employer] TE[employer]ER [employer]IST[employer] Work Phone: [facility] 10-14-2024 14:25-0400 Diastolic blood pressure 76 mm[Hg] Maira Aichholz [employer] TE[employer] ASSIST[employer] Work Phone: [facility] 10-14-2024 14:25-0400 Heart rate 87 /min Maira Yoonholz [employer] TE[employer]ER [employer]IST[employer] Work Phone: [facility] 10-14-2024 14:25-0400 Respiratory rate 22 /min Maira Aichholz [employer] TE[employer]ER ASSISTANT Work Phone: [facility] 10-14-2024 14:25-0400 SaO2% (BldA) [Mass fraction] 94 % Maira Kenahholz [employer] TE[employer]ER ASSISTANT Work Phone: [facility] 10-14-2024 14:25-0400 Systolic blood pressure 108 mm[Hg] Maira Yoonholz [employer] TE[employer]IST[employer] Work Phone: [facility] 08-06-2024 09:29-0500 Body height 167.6 cm Maira Aichholz [employer] TE[employer] Work Phone: [facility] 08-06-2024 09:29-0500 Body mass index (BMI) [Ratio] 33.86 kg/m2 Maira Aichholz [employer] Work Phone: [facility] 08-06-2024 09:29-0500 Body temperature 98.49 [degF] Maira Deutschz [employer] Work Phone: [facility] 08-06-2024 09:29-0500 Body weight 95.17 kg Maira Deutschz [employer] TE[employer]ANT Work Phone: [facility] 08-06-2024 09:29-0500 Diastolic blood pressure 84 mm[Hg] Maira Fatouz [employer] TE[employer]ER [employer]ISTANT Work Phone: [facility] 08-06-2024 09:29-0500 Heart rate 78 /min Maira Fatouz [employer] TE[employer]ER [employer]IST[employer] Work Phone: [facility] 08-06-2024 09:29-0500 Respiratory rate 20 /min Mairatessa Deutschz [employer] TE[employer]ER ASSISTANT Work Phone: [facility] 08-06-2024 09:29-0500 SaO2% (BldA) [Mass fraction] 93 % Mairatessa Deutschz [employer] TE[employer]ER ASSISTANT Work Phone: [facility] 08-06-2024 09:29-0500 Systolic blood pressure 140 mm[Hg] Maira Deutschz [employer] TE[employer]ER [employer]ISTANT Work Phone: [facility] 06-09-2024 10:59-0500 Body height 167.6 cm Maira Deutschz [employer] TE[employer]ER ASSISTANT Work Phone: [facility] 06-09-2024 10:59-0500 Body mass index (BMI) [Ratio] 33.86 kg/m2 Mairatessa Deutschz [employer]ER [employer]IST[employer] Work Phone: [facility] 06-09-2024 10:59-0500 Body temperature 97.59 [degF] Mairatessa Deutschz [employer] TE[employer]ER ASSISTANT Work Phone: [facility] 06-09-2024 10:59-0500 Body weight 95.17 kg Mairatessa Deutschz [employer] TE[employer]ER ASSISTANT Work Phone: [facility] Comment on above: steel toe boots on 06-09-2024 10:59-0500 Diastolic blood pressure 68 mm[Hg] Maira Nettlesvaz [employer] TE[employer]ER ASSISTANT Work Phone: [facility] 06-09-2024 10:59-0500 Heart rate 77 /min Maira Aichholz [employer] TE[employer]ER ASSISTANT Work Phone: [facility] 06-09-2024 10:59-0500 Respiratory rate 22 /min Maira Aichholz [employer] TE[employer]ER ASSISTANT Work Phone: [facility] 06-09-2024 10:59-0500 SaO2% (BldA) [Mass fraction] 94 % Maira Aichholz [employer] TE[employer]ER ASSISTANT Work Phone: [facility] 06-09-2024 10:59-0500 Systolic blood pressure 118 mm[Hg] Maira Aichholz [employer] TE[employer]ER ASSISTANT Work Phone: [facility] 05-28-2024 11:24-0500 Body height 167.6 cm Maira Aichholz [employer] TE[employer]ER ASSISTANT Work Phone: [facility] 05-28-2024 11:24-0500 Body mass index (BMI) [Ratio] 32.83 kg/m2 Maria Kenahholz [employer] TE[employer]ER ASSISTANT Work Phone: [facility] 05-28-2024 11:24-0500 Body temperature 98.1 [degF] Maira Aichholz [employer] TE[employer]ER ASSISTANT Work Phone: [facility] 05-28-2024 11:24-0500 Body weight 92.26 kg Maira Kenahholz [employer] TE[employer]ER ASSISTANT Work Phone: [facility] 05-28-2024 11:24-0500 Diastolic blood pressure 66 mm[Hg] Maira Aichholz [employer] TE[employer]ER ASSISTANT Work Phone: [facility] 05-28-2024 11:24-0500 Heart rate 73 /min Maira Aichholz [employer] TE[employer]ER ASSISTANT Work Phone: [facility] 05-28-2024 11:24-0500 Respiratory rate 22 /min Maira Aichholz [employer] TE[employer]ER ASSISTANT Work Phone: [facility] 05-28-2024 11:24-0500 SaO2% (BldA) [Mass fraction] 92 % Maira Aichholz [employer] TE[employer]ER ASSISTANT Work Phone: [facility] 05-28-2024 11:24-0500 Systolic blood pressure 110 mm[Hg] Maira Deutschz [employer] TE[employer]ER ASSISTANT Work Phone: [facility] 05-19-2024 14:16-0500 Body height 167.6 cm Mairatessa Deutschz [employer] TEACHER ASSISTANT Work Phone: [facility] 05-19-2024 14:16-0500 Body mass index (BMI) [Ratio] 33.77 kg/m2 Maira Yoonholz [employer]ER [employer]ISTANT Work Phone: [facility] 05-19-2024 14:16-0500 Body temperature 98.71 [degF] Maira Deutschz [employer] TE[employer]ER [employer]ISTANT Work Phone: [facility] 05-19-2024 14:16-0500 Body weight 94.89 kg Mairatessa Deutschz [employer] TE[employer]ER ASSISTANT Work Phone: [facility] 05-19-2024 14:16-0500 Diastolic blood pressure 66 mm[Hg] Maira Yoonholz [employer] TE[employer]ER ASSISTANT Work Phone: [facility] 05-19-2024 14:16-0500 Heart rate 71 /min Maira Fatouz [employer] TE[employer]ER ASSISTANT Work Phone: [facility] 05-19-2024 14:16-0500 Respiratory rate 18 /min Maira Yoonholz [employer] TE[employer]ER ASSISTANT Work Phone: [facility] 05-19-2024 14:16-0500 SaO2% (BldA) [Mass fraction] 93 % Mairatessa Deutschz [employer] TEACHER ASSISTANT Work Phone: [facility] 05-19-2024 14:16-0500 Systolic blood pressure 120 mm[Hg] Maira Yoonholz [employer] TE[employer]ER ASSISTANT Work Phone: [facility] 05-06-2024 13:32-0500 Body height 167.6 cm Maira Yoonholz [employer] TE[employer]ER ASSISTANT Work Phone: [facility] 05-06-2024 13:32-0500 Body mass index (BMI) [Ratio] 33.77 kg/m2 Maira Fatouz [employer] ASSISTANT Work Phone: [facility] 05-06-2024 13:32-0500 Body temperature 97.81 [degF] Maira Aichholz [employer] TE[employer]ER ASSISTANT Work Phone: [facility] 05-06-2024 13:32-0500 Body weight 94.89 kg Maira Aichholz [employer] TE[employer]ER ASSISTANT Work Phone: [facility] 05-06-2024 13:32-0500 Diastolic blood pressure 76 mm[Hg] Maira Aichholz [employer] TE[employer]ER ASSISTANT Work Phone: [facility] 05-06-2024 13:32-0500 Heart rate 73 /min Maira Aichholz [employer] TE[employer]ER ASSISTANT Work Phone: [facility] 05-06-2024 13:32-0500 SaO2% (BldA) [Mass fraction] 97 % Maira Aichholz [employer] TE[employer]ER ASSISTANT Work Phone: [facility] 05-06-2024 13:32-0500 Systolic blood pressure 138 mm[Hg] Maira Aichholz [employer] TE[employer]ER ASSISTANT Work Phone: [facility] 04-22-2024 09:23-0500 Body height 167.6 cm Maira Aichholz [employer] TE[employer]ER ASSISTANT Work Phone: [facility] 04-22-2024 09:23-0500 Body mass index (BMI) [Ratio] 32.44 kg/m2 Maira Aichholz [employer] ASSIST[employer] Work Phone: [facility] 04-22-2024 09:23-0500 Body temperature 98.1 [degF] Maria Aichholz [employer] TE[employer]ER ASSISTANT Work Phone: [facility] 04-22-2024 09:23-0500 Body weight 91.17 kg Maira Aichholz [employer] TE[employer]ER ASSISTANT Work Phone: [facility] 04-22-2024 09:23-0500 Diastolic blood pressure 78 mm[Hg] Maira Aichholz [employer]ER ASSISTANT Work Phone: [facility] 04-22-2024 09:23-0500 Heart rate 68 /min Maira Nettlesdominic [employer] TE[employer]ER ASSISTANT Work Phone: [facility] 04-22-2024 09:23-0500 Respiratory rate 20 /min Maira Rush [employer]ER ASSISTANT Work Phone: [facility] 04-22-2024 09:23-0500 SaO2% (BldA) [Mass fraction] 95 % Maira Nettlesdominic [employer]ER ASSISTANT Work Phone: [facility] 04-22-2024 09:23-0500 Systolic blood pressure 122 mm[Hg] Maira Nettlesdominic [employer]ER [employer]ISTANT Work Phone: [facility] 04-21-2024 14:21-0500 Body height 167.6 cm Felton Allison MD Work Phone: [facility] 04-21-2024 14:21-0500 Body mass index (BMI) [Ratio] 33.09 kg/m2 Felton Allison MD Work Phone: [facility] 04-21-2024 14:21-0500 Body weight 92.99 kg Felton Allison MD Work Phone: [facility] 04-21-2024 14:21-0500 Diastolic blood pressure 72 mm[Hg] Felton Allison MD Work Phone: [facility] 04-21-2024 14:21-0500 Heart rate 77 /min Felton Allison MD Work Phone: [facility] 04-21-2024 14:21-0500 Respiratory rate 18 /min Felton Allison MD Work Phone: [facility] 04-21-2024 14:21-0500 Systolic blood pressure 112 mm[Hg] Felton Allison MD Work Phone: [facility] 03-11-2024 10:25-0400 Body height 167.6 cm Maira Escuderodaryn [employer]ER [employer] Work Phone: [facility] 03-11-2024 10:25-0400 Body mass index (BMI) [Ratio] 33.28 kg/m2 Maira Yoonholz [employer]IST[employer] Work Phone: [facility] 03-11-2024 10:25-0400 Body temperature 98.1 [degF] Maira Kenahholz [employer]ER [employer]ISTANT Work Phone: [facility] 03-11-2024 10:25-0400 Body weight 93.53 kg Maira Kenahholz [employer] TE[employer]ER ASSISTANT Work Phone: [facility] 03-11-2024 10:25-0400 Diastolic blood pressure 80 mm[Hg] Maira Kenahholz [employer] TE[employer]ER ASSISTANT Work Phone: [facility] 03-11-2024 10:25-0400 Heart rate 71 /min Maira Kenahholz [employer] TE[employer]ER [employer]ISTANT Work Phone: [facility] 03-11-2024 10:25-0400 Respiratory rate 18 /min Maira Kenahholz [employer] TE[employer]ER ASSISTANT Work Phone: [facility] 03-11-2024 10:25-0400 SaO2% (BldA) [Mass fraction] 96 % Maira Kenahholz [employer] TE[employer]ER ASSISTANT Work Phone: [facility] 03-11-2024 10:25-0400 Systolic blood pressure 122 mm[Hg] Maira Kenahholz [employer] TE[employer]ER ASSISTANT Work Phone: [facility] 02-25-2024 10:56-0400 Body height 167.6 cm Maira Kenahholz [employer] TE[employer]ER ASSISTANT Work Phone: [facility] 02-25-2024 10:56-0400 Body mass index (BMI) [Ratio] 33.51 kg/m2 Maira Aichholz [employer] Work Phone: [facility] 02-25-2024 10:56-0400 Body temperature 98.1 [degF] Maira Kenahholz [employer] TE[employer]ER [employer]ISTANT Work Phone: [facility] 02-25-2024 10:56-0400 Body weight 94.17 kg Maira Kenahholz [employer] TE[employer]ER ASSISTANT Work Phone: [facility] 02-25-2024 10:56-0400 Diastolic blood pressure 76 mm[Hg] Maira Aichholz [employer] ASSIST[employer] Work Phone: [facility] 02-25-2024 10:56-0400 Heart rate 77 /min Maira Aichholz [employer]IST[employer] Work Phone: [facility] 02-25-2024 10:56-0400 Respiratory rate 19 /min Maira Aichholz [employer]ER ASSISTANT Work Phone: [facility] 02-25-2024 10:56-0400 SaO2% (BldA) [Mass fraction] 97 % Maira Aichholz [employer] TE[employer]ER ASSISTANT Work Phone: [facility] 02-25-2024 10:56-0400 Systolic blood pressure 122 mm[Hg] Maira Aichholz [employer] TE[employer]ER ASSISTANT Work Phone: [facility] 02-17-2024 11:07-0400 Body height 167.6 cm Maira Aichholz [employer] TE[employer]ER [employer]IST[employer] Work Phone: [facility] 02-17-2024 11:07-0400 Body mass index (BMI) [Ratio] 34.19 kg/m2 Maira Aichholz [employer]IST[employer] Work Phone: [facility] 02-17-2024 11:07-0400 Body temperature 98.49 [degF] Maira Aichholz [employer] ASSIST[employer] Work Phone: [facility] 02-17-2024 11:07-0400 Body weight 96.07 kg Maira Aichholz [employer] TE[employer]ER ASSISTANT Work Phone: [facility] 02-17-2024 11:07-0400 Diastolic blood pressure 82 mm[Hg] Maira Aichholz [employer]ER ASSIST[employer] Work Phone: [facility] 02-17-2024 11:07-0400 Heart rate 78 /min Maira Aichholz [employer]ER ASSISTANT Work Phone: [facility] 02-17-2024 11:07-0400 Respiratory rate 19 /min Maira Aichholz [employer] TE[employer]ER ASSISTANT Work Phone: [facility] 02-17-2024 11:07-0400 SaO2% (BldA) [Mass fraction] 98 % Maira Victor Manuel [employer] TE[employer]ER ASSISTANT Work Phone: [facility] 02-17-2024 11:07-0400 Systolic blood pressure 118 mm[Hg] Maira Fatouz [employer] TE[employer]ER ASSISTANT Work Phone: [facility] 07-18-2023 14:27-0500 Body height 167.6 cm Maira Fatouz [employer] TE[employer]ER ASSISTANT Work Phone: [facility] 07-18-2023 14:27-0500 Body mass index (BMI) [Ratio] 38.29 kg/m2 Maira Fatouz [employer] TE[employer]ER ASSIST[employer] Work Phone: [facility] 07-18-2023 14:27-0500 Body temperature 98.01 [degF] Maira Victor Manuel [employer]ER [employer]IST[employer] Work Phone: [facility] 07-18-2023 14:27-0500 Body weight 107.59 kg Maira Victor Manuel [employer] TE[employer]ER ASSIST[employer] Work Phone: [facility] 07-18-2023 14:27-0500 Diastolic blood pressure 78 mm[Hg] Maira Victor Manuel [employer] TE[employer]ER [employer]IST[employer] Work Phone: [facility] 07-18-2023 14:27-0500 Heart rate 79 /min Maira Victor Manuel [employer] TE[employer]ER ASSISTANT Work Phone: [facility] 07-18-2023 14:27-0500 Respiratory rate 19 /min Maira Fatouz [employer] TE[employer]ER ASSISTANT Work Phone: [facility] 07-18-2023 14:27-0500 SaO2% (BldA) [Mass fraction] 97 % Maira Victor Manuel [employer] TE[employer]ER ASSISTANT Work Phone: [facility] 07-18-2023 14:27-0500 Systolic blood pressure 142 mm[Hg] Maira Victor Manuel [employer] TE[employer]ER ASSISTANT Work Phone: [facility] Healthcare Encounters Encounter Date Encounter Type Care Provider Facility Start: 01-15-2025 End: 01-15-2025 Emergency department patient [facility] Start: 01-14-2025 End: 01-16-2025 Refill Maira Victor Manuel [employer] Work Phone: [facility] Comment on above: Vitamin D deficiency (Primary Dx); Primary hypertension ; Edema of extremities; COPD mixed type ([facility]); Type 2 diabetes mellitus with diabetic neuropathy, with long-term current use of insulin ([facility]) Start: 01-08-2025 End: 01-08-2025 Bamboo flowsheet Bob Medina RN [facility] Patient Education Start: 01-08-2025 End: 01-08-2025 Bamboo flowsheet Bob Medina RN [facility] Patient Education Start: 01-08-2025 End: 01-08-2025 ambulatory BOB MEDINA Not Available Start: 12-14-2024 End: 12-14-2024 Bamboo flowsheet Maira Victor Manuel ITINERANT TEACHER ASSISTANT Work Phone: [facility] Start: 12-14-2024 End: 12-14-2024 Bamboo flowsheet Maira Victor Manuel ITINERANT TEACHER ASSISTANT Work Phone: [facility] Start: 12-14-2024 End: 12-14-2024 Office outpatient visit 25 minutes Maira Rush ITINERANT TEACHER ASSISTANT Work Phone: [facility] Comment on above: Type 2 diabetes gayatri itus without complication, with long-term current use of insulin ([facility]) (Primary Dx); Gill rash of groin; Cigarette nicotine dependence without complication; Urge and stress incontinence; Primary hypertension ; Paroxysmal atrial fibrillation ([facility]); Medical non-compliance Start: 12-14-2024 End: 12-14-2024 Refill Maira Victor Manuel ITINERANT TEACHER ASSISTANT Work Phone: [facility] Comment on above: 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 Start: 12-01-2024 End: 12-01-2024 Bamboo flowsheet Maira Victor Manuel ITINERANT TEACHER ASSISTANT Work Phone: [facility] Start: 12-01-2024 End: 12-01-2024 Bamboo flowsheet Maira Aichholz ITINERANT TEACHER ASSISTANT Work Phone: [facility] Start: 12-01-2024 End: 12-01-2024 ambulatory MAIRA AICHHOLZ Not Available Start: 12-01-2024 End: 12-01-2024 Office outpatient visit 25 minutes Maira Aichholz ITINERANT TEACHER ASSISTANT Work Phone: [facility] Comment on above: Gill infection of genital region (Primary Dx); Type 2 diabetes mellitus without complication, with long-term current use of insulin ([facility]); Gill rash of groin; Abscess of left groin Start: 11-25-2024 End: 11-25-2024 Orders Only Maira Aichholz ITINERANT TEACHER ASSISTANT Work Phone: [facility] Comment on above: Primary hypertension (Primary Dx) Start: 11-17-2024 End: 11-18-2024 Refill Maira Aichholz ITINERANT TEACHER ASSISTANT Work Phone: [facility] Comment on above: COPD mixed type ([facility] ) Start: 10-16-2024 End: 10-16-2024 Orders Only Maira Aichholz ITINERANT TEACHER ASSISTANT Work Phone: [facility] Comment on above: Type 2 diabetes gayatri itus without complication, with long-term current use of insulin (Primary Dx); Obesity (BMI 30-39.9); Abscess of left groin Start: 10-14-2024 End: 10-14-2024 ambulatory MAIRA AICHHOLZ Not Available Start: 10-14-2024 End: 10-14-2024 Office outpatient visit 25 minutes Maira Aichholz ITINERANT TEACHER ASSISTANT Work Phone: [facility] Comment on above: Abscess of left groi n (Primary Dx); Primary hypertension (CMS/[facility]); Type 2 diabetes mellitus without complication, with long-term current use of insulin; Cigarette nicotine dependence without complication; Encounter for screening mammogram for malignant neoplasm of breast; Gill rash of groin; Mild episode of recurrent major depressive disorder (HCC) (CMS/HCC) Start: 10-14-2024 End: 10-14-2024 Bamboo flowsheet Maira Aichholz ITINERANT TEACHER ASSISTANT Work Phone: [facility] Start: 10-14-2024 End: 10-14-2024 Bamboo flowsheet Maira Rush ITINERANT TEACHER ASSISTANT Work Phone: [facility] Start: 10-06-2024 [...] Start: 09-21-2024 End: 09-21-2024 Refill Mairatessa Rush ITINERANT TEACHER ASSISTANT Work Phone: [facility] Comment on above: JORDAN (generalized anx iety disorder) (CMS/HCC); Mild episode of recurrent major depressive disorder (HCC) (CMS/HCC) Start: 09-18-2024 End: 09-20-2024 Refill Maira Rush ITINERANT TEACHER ASSISTANT Work Phone: [facility] Comment on [...] 08-06-2024 End: 08-06-2024 Bamboo flowsheet Maira Rush ITINERANT TEACHER ASSISTANT Work Phone: [facility] Start: 08-06-2024 End: 08-06-2024 Bamboo flowsheet Maira uRsh ITINERANT TEACHER ASSISTANT Work Phone: [facility] Start: 08-06-2024 End: 08-06-2024 Office outpatient visit 25 minutes Maira Rush ITINERANT TEACHER ASSISTANT Work Phone: [facility] Comment on above: JORDAN (generalized anx iety disorder) ([facility]/HCC) (Primary Dx); SANTO (obstructive sleep apnea); Type 2 diabetes mellitus with diabetic polyneuropathy, with long-term current use of insulin ([facility]); COPD mixed type ([facility]); Oxygen dependent; Paroxysmal atrial fibrillation ([facility]); Primary hypertension ([facility]); Gastroesophageal reflux disease, unspecified whether esophagitis present; Obesity (BMI 30-39.9); Type 2 diabetes mellitus without complication, with long-term current use of insulin ([facility]); Anxiety and depression ([facility]/HCC); 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 ([facility]); Medical non-compliance; Mild episode of recurrent major depressive disorder (HCC) ([facility]); Cigarette nicotine dependence without complication; Encounter for screening mammogram for malignant neoplasm of breast; Diabetic polyneuropathy associated with type 2 diabetes mellitus ([facility]); Mixed hyperlipidemia ([facility]); Edema of extremities Start: 08-06-2024 End: 08-06-2024 ambulatory MAIRA VICTOR MANUEL Not Available Start: 07-20-2024 End: 07-20-2024 Refill Mairatessa Rush ITINERANT TEACHER ASSISTANT Work Phone: [facility] Comment on above: Type 2 diabetes gayatri itus with diabetic neuropathy, with long- term current use of insulin ([facility]) Start: 07-16-2024 End: 07-16-2024 Refill Mairatessa Rush ITINERANT TEACHER ASSISTANT Work Phone: [facility] Comment on above: Diarrhea, unspecifie d type (Primary Dx) Start: 07-14-2024 End: 07-16-2024 External Result Encounter Maira Rush ITINERANT TEACHER ASSISTANT Work Phone: [facility] Unsolicited Start: 07-14-2024 End: 07-16-2024 External Result Encounter Maira Aichholz ITINERANT TEACHER ASSISTANT Work Phone: [facility] Unsolicited Start: 07-14-2024 End: 07-14-2024 Orders Only Maira Aichholz ITINERANT TEACHER ASSISTANT Work Phone: [facility] Comment on above: Diarrhea, unspecifie d type (Primary Dx) Start: 07-08-2024 End: 07-08-2024 Clinisync Result Encounter Maira Aichholz ITINERANT TEACHER ASSISTANT Work Phone: [facility] Unsolicited Start: 07-08-2024 End: 07-08-2024 Clinisync Result Encounter Maira Aichholz ITINERANT TEACHER ASSISTANT Work Phone: [facility] Unsolicited Start: 07-06-2024 End: 07-06-2024 ambulatory [facility] Start: 07-01-2024 End: 07-01-2024 Refill Maira Aichholz ITINERANT TEACHER ASSISTANT Work Phone: [facility] Comment on above: Type 2 diabetes gayatri itus without complication, with long-term current use of insulin (CMS/HCC) (Primary Dx) Start: 06-11-2024 End: 06-11-2024 Orders Only Maira Aichholz ITINERANT TEACHER ASSISTANT Work Phone: [facility] Comment on above: 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 (CMS/HCC) (Primary Dx) Start: 06-09-2024 End: 06-09-2024 Bamboo flowsheet Maira Aichholz ITINERANT TEACHER ASSISTANT Work Phone: [facility] Start: 06-09-2024 End: 06-09-2024 Bamboo flowsheet Maira Aichholz ITINERANT TEACHER ASSISTANT Work Phone: [facility] Start: 06-09-2024 End: 06-09-2024 Office outpatient visit 25 minutes Maira Aichholz ITINERANT TEACHER ASSISTANT Work Phone: [facility] Comment on above: COVID (Primary Dx); Type 2 diabetes mellitus with diabetic polyneuropathy ([facility]/HCC); Type 2 diabetes mellitus with hyperglycemia ([facility]/HCC); 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 classified elsewhere ([facility]/HCC); 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 ([facility]/HCC); COPD mixed type ([facility]/HCC); Paroxysmal atrial fibrillation ([facility]/HCC); Primary hypertension ([facility]/HCC); Tobacco user Start: 06-09-2024 End: 06-09-2024 ambulatory MAIRATessa RUSH Not Available Start: 05-28-2024 End: 05-28-2024 Refill Maira Rush ITINERANT TEACHER ASSISTANT Work Phone: [facility] Comment on above: COPD mixed type (CMS /HCC) Start: 05-28-2024 End: 05-28-2024 Office outpatient visit 25 minutes Maira Rush ITINERANT TEACHER ASSISTANT Work Phone: [facility] Comment on above: Oxygen dependent (Pr imary Dx); COPD mixed type (CMS/HCC); Obesity (BMI 30-39.9); COPD with acute exacerbation ([facility]/HCC) Start: 05-28-2024 End: 05-28-2024 Orders Only Maira Rush ITINERANT TEACHER ASSISTANT Work Phone: [facility] Comment on above: Lung nodule, multipl e (Primary Dx); COPD mixed type (CMS/HCC) 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 ([facility]/HCC) (Primary Dx) Start: 05-25-2024 End: 05-25-2024 Clinisync Result Encounter Generic External Data Provider [facility] Unsolicited Start: 05-25-2024 End: 05-25-2024 Clinisync Result Encounter Generic External Data Provider [facility] Unsolicited Start: 05-19-2024 End: 05-19-2024 Bamboo flowsheet Maira Rush ITINERANT TEACHER ASSISTANT Work Phone: [facility] Start: 05-19-2024 End: 05-19-2024 Bamboo flowsheet Maira Rush ITINERANT TEACHER ASSISTANT Work Phone: [facility] Start: 05-19-2024 End: 05-19-2024 Office outpatient visit 15 minutes Maira Rush ITINERANT TEACHER ASSISTANT Work Phone: [facility] Comment on above: Right wrist pain (Pr imary Dx); Obesity (BMI 30-39.9) Start: 05-19-2024 End: 05-19-2024 ambulatory MAIRA YOONHOLZ Not Available Start: 05-18-2024 End: 05-18-2024 Orders Only Maira Rush ITINERANT TEACHER ASSISTANT Work Phone: [facility] Comment on above: Lung nodule, multipl e (Primary Dx) Start: 05-06-2024 End: 05-06-2024 Bamboo flowsheet Maira Rush ITINERANT TEACHER ASSISTANT Work Phone: [facility] Start: 05-06-2024 End: 05-06-2024 Bamboo flowsheet Maira Rush ITINERANT TEACHER ASSISTANT Work Phone: [facility] Start: 05-06-2024 End: 05-06-2024 Office outpatient visit 25 minutes Maira Rush ITINERANT TEACHER ASSISTANT Work Phone: [facility] Comment on above: COPD mixed [...] End: 04-22-2024 Patient encounter status Maira Rush ITINERANT TEACHER ASSISTANT Work Phone: [facility] Start: 04-22-2024 End: 04-22-2024 Periodic preventive med est patient 40-64yrs Maira Rush ITINERANT TEACHER ASSISTANT Work Phone: [facility] Comment on above: Encounter for wellne ss examination (Primary Dx); Osteoporosis, unspecified osteoporosis type, unspecified pathological fracture presence ([facility]); Open wound of buttock, unspecified laterality, initial encounter; Type 2 diabetes mellitus without complication, with long-term current use of insulin ([facility]); Obesity (BMI 30-39.9); Tobacco user; Anxiety and depression ([facility]); Type 2 diabetes mellitus with diabetic neuropathy, with long-term current use of insulin ([facility]); COPD mixed type ([facility]); Diabetic polyneuropathy associated with type 2 diabetes mellitus ([facility]); Gastroesophageal reflux disease, unspecified whether esophagitis present; Mixed hyperlipidemia ([facility]); Primary hypertension ([facility]); Edema of extremities; Lung nodule, multiple; Lymphadenopathy, generalized; Vitamin D deficiency; Oxygen dependent; Community acquired pneumonia, unspecified laterality Start: 04-22-2024 End: 04-22-2024 ambulatory MAIRA RUSH Not Available Start: 04-21-2024 End: 04-21-2024 Office outpatient visit 25 minutes Felton Allison MD Work Phone: [facility] Comment on above: Type 2 diabetes gayatri itus with hyperglycemia, with long-term current use of insulin ([facility]) (Primary Dx); Encounter for dietary consultation; Vitamin D deficiency; Primary hypertension ([facility]); Hyperlipemia, mixed ([facility]); Insulin long-term use ([facility]); Class 1 obesity due to excess calories without serious comorbidity with body mass index (BMI) of 33.0 to 33.9 in adult Start: 04-21-2024 End: 04-21-2024 ambulatory FELTON ALLISON Not Available Start: 04-09-2024 End: 04-09-2024 Clinisync Result Encounter Maira Rush ITINERANT TEACHER ASSISTANT Work Phone: [facility] Unsolicited Start: 04-09-2024 End: 04-09-2024 Clinisync Result Encounter Maira Rush ITINERANT TEACHER ASSISTANT Work Phone: [facility] Unsolicited Start: 04-09-2024 End: 04-09-2024 Telephone encounter Maira Rush NP Work Phone: [facility] Start: 03-20-2024 End: 03-20-2024 ambulatory MAIRA Kel DEUTSCHZ [facility] Start: 03-18-2024 End: 03-18-2024 Refill Maira Aichholz ITINER[employer] TEACHER ASSISTANT Work Phone: [facility] Comment on above: COPD mixed type (CMS /HCC) (Primary Dx); URI, acute COPD mixed type (CMS /HCC); URI, acute Start: 03-16-2024 End: 03-16-2024 Refill Maira Aichholz ITINERANT TEACHER ASSISTANT Work Phone: [facility] Comment on above: Primary hypertension (CMS/HCC) (Primary Dx); Edema of extremities Start: 03-11-2024 End: 03-11-2024 Bamboo flowsheet Maira Aichholz ITINERANT TEACHER ASSISTANT Work Phone: [facility] Start: 03-11-2024 End: 03-11-2024 Bamboo flowsheet Maira Aichholz ITINERANT TEACHER ASSISTANT Work Phone: [facility] Start: 03-11-2024 End: 03-11-2024 Office outpatient visit 25 minutes Maira Aichholz ITINERANT TEACHER ASSISTANT Work Phone: [facility] Comment on above: Viral upper respirat ory tract infection (Primary Dx); Tobacco user; Open wound; Obesity (BMI 30-39.9); Type 2 diabetes mellitus without complication, with long-term current use of insulin (CMS/HCC) Start: 03-11-2024 End: 03-11-2024 ambulatory MAIRA AICHHOLZ Not Available Start: 02-25-2024 End: 02-25-2024 Bamboo flowsheet Maira Aichholz ITINERANT TEACHER ASSISTANT Work Phone: [facility] Start: 02-25-2024 End: 02-25-2024 Bamboo flowsheet Maira Aichholz ITINERANT TEACHER ASSISTANT Work Phone: [facility] Start: 02-25-2024 End: 02-25-2024 Office outpatient visit 25 minutes Maira Aichholz ITINERANT TEACHER ASSISTANT Work Phone: [facility] Comment on above: Open wound of buttoc k, unspecified laterality, initial encounter (Primary Dx); Type 2 diabetes mellitus without complication, with long-term current use of insulin ([facility]); Obesity (BMI 30-39.9); Dizziness and giddiness Start: 02-25-2024 End: 02-25-2024 ambulatory MAIRA AICHHOLZ Not Available Start: 02-24-2024 End: 02-26-2024 Clinisync Result Encounter Generic External Data Provider [facility] Unsolicited Start: 02-24-2024 End: 02-26-2024 Clinisync Result Encounter Generic External Data Provider [facility] Unsolicited Start: 02-17-2024 End: 02-17-2024 Bamboo flowsheet Maira Rush ITINERANT TEACHER ASSISTANT Work Phone: [facility] Start: 02-17-2024 End: 02-17-2024 Bamboo flowsheet Mairatessa Rush ITINERANT TEACHER ASSISTANT Work Phone: [facility] Start: 02-17-2024 End: 02-17-2024 Office outpatient visit 25 minutes Maira Rush ITINERANT TEACHER ASSISTANT Work Phone: [facility] Comment on above: Type 2 diabetes gayatri itus with hyperglycemia (CMS/HCC) (Primary Dx); Primary hypertension (CMS/HCC); Edema of extremities; Type 2 diabetes mellitus without complication, with long-term current use of insulin ([facility]); Vitamin D deficiency; Tobacco user; Dizziness and giddiness; Atrial fibrillation, unspecified type (CMS/HCC); COPD mixed type (CMS/HCC) Start: 02-17-2024 End: 02-17-2024 ambulatory MAIRA AICHHOLZ Not Available Start: 01-23-2024 End: 01-23-[address] [facility] Start: 07-18-2023 End: 07-18-2023 Office outpatient visit 25 minutes Mairatessa Rush ITINERANT TEACHER ASSISTANT Work Phone: [facility] Comment on above: Primary hypertension (CMS/HCC) (Primary Dx); Type 2 diabetes mellitus with diabetic neuropathy, with long-term current use of insulin ([facility]); Gastroesophageal reflux disease, unspecified whether esophagitis present; Vitamin D deficiency; Type 2 diabetes mellitus with complication, without long-term current use of insulin ([facility]); Mixed hyperlipidemia ([facility]); Encounter for screening mammogram for malignant neoplasm of breast; SANTO (obstructive sleep apnea); COPD mixed type ([facility]); Anxiety and depression ([facility]); COVID; Open wound; Morbid obesity with body mass index (BMI) of 40.0 to 49.9 ([facility]) Start: 07-18-2023 Bamboo flowsheet aMira Rush ITINERANT TEACHER ASSISTANT Work Phone: [facility] Start: 07-18-2023 Bamboo flowsheet Maira Rush ITINERANT TEACHER ASSISTANT Work Phone: [facility] Start: 10-02-2022 End: 10-03-2022 ambulatory DMITRY RUSH Facility:[facility] Start: 08-09-2022 End: 08-10-2022 ambulatory DMITRY RUSH Facility:[facility] Start: 07-12-2022 ambulatory [facility] Start: 06-21-2022 End: 06-22-[address] CORINE ANGELA Facility:[facility] Start: 06-20-2022 End: 06-21-2022 ambulatory DMITRY RUSH Facility:[facility] Start: 06-07-2022 End: 06-07-2022 ambulatory Robert Hart Facility:[facility] Start: 04-05-2022 End: 04-09-2022 Evaluation and management of inpatient DR TERI BLOCK . Facility:[facility] Start: 11-23-2021 End: 11-23-2021 ambulatory DMITRY RUSH Facility:[facility] Start: 09-30-2018 End: 10-01-2018 Patient encounter procedure DEFAULT PHYSICIAN Facility:[facility] Start: 09-15-2018 End: 09-16-2018 Patient encounter procedure DEFAULT PHYSICIAN Facility:[facility] Procedures Date Procedure Procedure Detail Performing Clinician Start: 12-14-2024 Hemoglobin glycosylated a1c Maira Rush ITINERANT TEACHER ASSISTANT Work Phone: Start: 10-04-2024 AEROBIC CULTURE Generic External Data Provider Start: 07-14-2024 GASTROINTESTINAL PLU S PARASITES (HTRX) Maira Rush ITINERANT TEACHER ASSISTANT Work Phone: Start: 07-08-2024 CT ABDOMEN WO/W CON Keisha Rush ITINERANT TEACHER ASSISTANT Work Phone: Start: 05-25-2024 ALL RENAL FUNCTION PANEL Generic External Data Provider Start: 04-21-2024 Gluc bld gluc mntr d ev cleared fda spec home use Felton Allison MD Work Phone: Start: 04-09-2024 [facility]H UA (CLEAN/CATCH) MICROSCOPIC IF INDICATE Maira Rush ITINERANT TEACHER ASSISTANT Work Phone: Start: 02-24-2024 Bacteria identified in Urine by Culture Generic External Data Provider Start: 08-05-2023 Mammography Maira santiago ITINERANT TEACHER ASSISTANT Work Phone: Start: 06-19-2022 Mammography Maira santiago ITINERANT TEACHER ASSISTANT Work Phone: Start: 02-14-2015 Colonoscopy Maira santiago ITINERANT TEACHER ASSISTANT Work Phone: Plan of Treatment Date Care Activity Detail Author Start: 05-25-2025 Urine screening for protein Diabetes: Urine Protein Screening [facility] Start: 03-16-2025 Hemoglobin A1c measurement Diabetes: Hemoglobin A1C [facility] Start: 02-14-2025 Screening for malignant neoplasm of colon [facility] Start: 02-11-2025 End: 02-11-2025 Clinical Support 02/11/2025 11:30 AM EDT Clinical Support [facility] Patient Education [address] [place] [facility] [id number] Bob Medina, BARI Gonzales Patient Education Start: 01-14-2025 End: 01-14-2025 Patient encounter procedure 01/14/2025 11:00 AM EDT Office Visit [facility] [address] [place] [phone] Maira Rush NP [address] [place] [phone] [facility] Start: 12-14-2024 End: 12-14-2025 Comprehensive metabolic 2000 panel - Serum or Plasma Comprehensive metabolic panel Lab Routine Type 2 diabetes mellitus without complication, with long-term current use of insulin (HCC) Expected: 12/14/2024 (Approximate), Expires: 12/14/2025 [facility] Work Phone: Comment on above: Expected: 12/14/2024 (Approximate), Expi res: 12/14/2025 Start: 12-14-2024 End: 12-14-2025 Lipid 1996 panel - Serum or Plasma Lipid panel Lab Routine Type 2 diabetes mellitus without complication, with long-term current use of insulin (HCC) Expected: 12/14/2024 (Approximate), Expires: 12/14/2025 [facility] Comment on above: Expected: 12/14/2024 (Approximate), Expi res: 12/14/2025 Start: 12-14-2024 End: 12-14-2024 Patient encounter procedure [facility] Comment on above: Type 2 diabetes mellitus without complic ation, with long-term current use of insulin (HCC) (Primary Dx); Gill rash of groin; Cigarette nicotine dependence without complication; Urge and stress incontinence Start: 11-26-2024 End: 05-28-2025 CT Chest W contrast IV CT chest w IV contrast Imaging Routine Lung nodule, multiple Expected: 11/26/2024 (Approximate), Expires: 05/28/2025 [facility] [place] Work Phone: Comment on above: Expected: 11/26/2024 (Approximate), Expi res: 05/28/2025 Start: 11-25-2024 End: 11-25-2025 Basic metabolic 1998 panel - Serum or Plasma Basic metabolic panel Lab Routine Primary hypertension Expected: 11/25/2024 (Approximate), Expires: 11/25/2025 [facility] Work Phone: Comment on above: Expected: 11/25/2024 (Approximate), Expi res: 11/25/2025 Start: 11-09-2024 End: 11-09-2024 Patient encounter procedure 11/09/2024 9:40 AM EDT Office Visit [facility] [address] [place] [phone] Maira Rush, ITINERANT TEACHER ASSISTANT [address] [place] [phone] [facility] Start: 10-14-2024 End: 10-14-2024 Patient encounter procedure 10/14/2024 2:20 PM EDT Office Visit [facility] [address] [place] [address] Maira Rush, ARLEN [address] [place] [phone] [facility] Start: 10-14-2024 End: 12-14-2025 MG Breast - bilateral Screening Bilateral screening mammogram Imaging Routine Encounter for screening mammogram for malignant neoplasm of breast Expected: 10/14/2024 (Approximate), Expires: 12/14/2025 [facility] Work Phone: Comment on above: Expected: 10/14/2024 (Approximate), Expi res: 12/14/2025 Start: 09-02-2024 End: 09-02-2024 Patient encounter procedure 09/02/2024 11:10 AM EDT Office Visit [facility] [address] [place] [phone] Felton Allison MD [address] [place] [address] [facility] Start: 08-06-2024 End: 10-06-2025 MG Breast - bilateral Screening Bilateral screening mammogram Imaging Routine Encounter for screening mammogram for malignant neoplasm of breast Expected: 08/06/2024 (Approximate), Expires: 10/06/2025 [facility] Work Phone: Comment on above: Expected: 08/06/2024 (Approximate), Expi res: 10/06/2025 Start: 08-06-2024 End: 08-06-2024 Patient encounter procedure [facility] Comment on above: SANTO (obstructive sleep apnea) (Primary D x); Type 2 diabetes mellitus with diabetic polyneuropathy, with long-term current use of insulin ([facility]/HCC); COPD mixed type ([facility]/HCC); Oxygen dependent; Paroxysmal atrial fibrillation ([facility]/HCC); Primary hypertension ([facility]); Gastroesophageal reflux disease, unspecified whether esophagitis present; Obesity (BMI 30-39.9); Type 2 diabetes mellitus without complication, with long-term current use of insulin ([facility]/HCC); Anxiety and depression ([facility]); correction (current) use of insulin ([facility]); Medical non-compliance; JORDAN (generalized anxiety disorder) ([facility]); Mild episode of recurrent major depressive disorder (HCC) ([facility]); Cigarette nicotine dependence without complication; Encounter for screening mammogram for malignant neoplasm of breast Start: 08-04-2024 Screening for malignant neoplasm of breast Mammogram [facility] Start: 08-04-2024 Urine screening for protein Diabetes: Urine Protein Screening [facility] Start: 07-23-2024 Hemoglobin A1c measurement Diabetes: Hemoglobin A1C [facility] Start: 07-22-2024 Hemoglobin A1c measurement Diabetes: Hemoglobin A1C [facility] Start: 07-21-2024 End: 07-21-2024 Patient encounter procedure 07/21/2024 2:20 PM EST Office Visit [facility] [address] [place] [address] Felton Allison MD [address] [place] [address] [facility] Start: 07-21-2024 End: 07-21-2024 Patient encounter procedure 07/21/2024 10:40 AM EST Office Visit [facility] [address] [place] [address] Felton Allison MD [address], [address] [place] [address] [facility] Start: 07-14-2024 End: 07-14-2025 GASTROINTESTINAL PLUS PARASITES (HTRX) GASTROINTESTINAL PLUS PARASITES (HTRX) Lab Routine Diarrhea, unspecified type Expected: 07/14/2024 (Approximate), Expires: 07/14/2025 [facility] Work Phone: Comment on above: Expected: 07/14/2024 (Approximate), Expi res: 07/14/2025 Start: 07-09-2024 Hemoglobin A1c measurement Diabetes: Hemoglobin A1C [facility] Start: 06-11-2024 End: 06-11-2025 CT Abdomen WO and W contrast IV CT abdomen w and wo IV contrast Imaging Routine 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 (CMS/HCC) Expected: 06/11/2024, Expires: 06/11/2025 [facility] Work Phone: Comment on above: Expected: 06/11/2024, Expires: Start: 06-09-2024 End: 06-09-2024 Patient encounter procedure 06/09/2024 11:00 AM EST Office Visit [facility] [address] [place] [phone] Maira Rush, ARLEN [address] [place] [address] COPD mixed type (CMS/HCC) (Primary Dx); Type 2 diabetes mellitus with diabetic polyneuropathy (CMS/HCC); Type 2 diabetes mellitus with hyperglycemia (CMS/HCC); 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/HCC); correction (current) use of insulin (CMS/HCC); Paroxysmal atrial fibrillation (CMS/HCC); Primary hypertension (CMS/HCC); Tobacco user; COVID [facility] Comment on above: COPD mixed type (CMS/HCC) (Primary Dx); Type 2 diabetes mellitus with diabetic polyneuropathy (CMS/HCC); Type 2 diabetes mellitus with hyperglycemia (CMS/HCC); 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/HCC); 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 (CMS/HCC); Paroxysmal atrial fibrillation (CMS/HCC); Primary hypertension (CMS/HCC); Tobacco user; COVID Start: 05-28-2024 End: 05-28-2025 Creatinine [Mass/volume] in Serum or Plasma Creatinine Lab Routine 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 (CMS/HCC) Expected: 05/28/2024 (Approximate), Expires: 05/28/2025 [facility] Comment on above: Expected: 05/28/2024 (Approximate), Expi res: 05/28/2025 Start: 05-28-2024 End: 05-28-2025 CT Abdomen and Pelvis W contrast IV CT abdomen pelvis w IV contrast Imaging Routine 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 (CMS/HCC) Expected: 05/28/2024 (Approximate), Expires: 05/28/2025 [facility] Work Phone: Comment on above: Expected: 05/28/2024 (Approximate), Expi res: 05/28/2025 Start: 05-19-2024 End: 05-19-2024 Patient encounter procedure [facility] Comment on above: Obesity (BMI 30-39.9) (Primary Dx); COPD mixed type (CMS/HCC) Start: 05-18-2024 End: 05-18-2025 Creatinine [Mass/volume] in Serum or Plasma Creatinine Lab Routine Lung nodule, multiple Expected: 05/18/2024 (Approximate), Expires: 05/18/2025 [facility] Work Phone: Comment on above: Expected: 05/18/2024 (Approximate), Expi res: 05/18/2025 Start: 05-06-2024 End: 05-06-2024 Patient encounter procedure 05/06/2024 1:20 PM EST Office Visit [facility] [address] [place] [phone] Maira Rush NP [address] [place] [phone] SANTO (obstructive sleep apnea) (Primary Dx); Lung nodule, multiple; COPD mixed type (CMS/HCC); Community acquired pneumonia, unspecified laterality; Primary hypertension (CMS/HCC); Atrial fibrillation, unspecified type (CMS/HCC); Type 2 diabetes mellitus without complication, with long-term current use of insulin (CMS/HCC); Tobacco user [facility] Comment on above: SANTO (obstructive sleep [...] Lymphadenopathy, generalized Expected: 04/22/2024 (Approximate), Expires: 04/22/2025 [facility] Work Phone: Comment on above: Expected: 04/22/2024 (Approximate), Expi res: 04/22/2025 Start: 04-22-2024 End: 04-22-2024 Patient encounter procedure 04/22/2024 9:20 AM EST Office Visit [facility] [address] [place] [address] [address] Maira Rush NP [address] [place] [address] [facility] Start: 04-21-2024 End: 04-21-2024 Patient encounter procedure 04/21/2024 2:40 PM EST Office Visit [facility] [address] [place] [phone] Felton Allison MD [address] [place] [address] [facility] Start: 04-21-2024 End: 04-21-2025 25-hydroxyvitamin D3 [Mass/volume] in Serum or Plasma Vitamin D 25 hydroxy Total Lab Routine Type 2 diabetes mellitus with hyperglycemia, with long-term current use of insulin ([facility]) Expected: 04/21/2024 (Approximate), Expires: 04/21/2025 [facility] Comment on above: Expected: 04/21/2024 (Approximate), Expi res: 04/21/2025 Start: 04-21-2024 End: 04-21-2025 C-peptide C-peptide Lab Routine Type 2 diabetes mellitus with hyperglycemia, with long-term current use of insulin ([facility]) Expected: 04/21/2024 (Approximate), Expires: 04/21/2025 [facility] Work Phone: Comment on above: Expected: 04/21/2024 (Approximate), Expi res: 04/21/2025 Start: 04-21-2024 End: 04-21-2024 Chart abstracting 04/21/2024 Abstract [facility] [address] [place] [phone] Felton Allison MD [address] [place] [address] [facility] Start: 04-21-2024 End: 04-21-2025 Lipid 1996 panel - Serum or Plasma Lipid panel Lab Routine Type 2 diabetes mellitus with hyperglycemia, with long-term current use of insulin ([facility]) Expected: 04/21/2024 (Approximate), Expires: 04/21/2025 [facility] Comment on above: Expected: 04/21/2024 (Approximate), Expi res: 04/21/2025 Start: 04-21-2024 End: 04-21-2025 Microalbumin/Creatinine panel in random Urine Microalbumin / creatinine urine ratio Lab Routine Type 2 diabetes mellitus with hyperglycemia, with long-term current use of insulin ([facility]) Expected: 04/21/2024 (Approximate), Expires: 04/21/2025 [facility] Comment on above: Expected: 04/21/2024 (Approximate), Expi res: 04/21/2025 Start: 04-21-2024 End: 04-21-2025 Renal function panel Renal function panel Lab Routine Type 2 diabetes mellitus with hyperglycemia, with long-term current use of insulin ([facility]) Expected: 04/21/2024 (Approximate), Expires: 04/21/2025 [facility] Comment on above: Expected: 04/21/2024 (Approximate), Expi res: 04/21/2025 Start: 03-11-2024 End: 03-11-2024 Patient encounter procedure [facility] Comment on above: Arrived Start: 02-25-2024 End: 02-25-2024 Patient encounter procedure 02/25/2024 11:00 AM EDT Office Visit [facility] [address] [place] [address] Maira Rush NP [address] [place] [address] Arrived [facility] Comment on above: Arrived Start: 02-17-2024 End: 02-16-2025 CBC W Auto Differential panel - Blood CBC and differential Lab Routine Dizziness and giddiness Expected: 02/17/2024 (Approximate), Expires: 02/16/2025 [facility] Comment on above: Expected: 02/17/2024 (Approximate), Expi res: 02/16/2025 Start: 02-17-2024 End: 02-16-2025 Comprehensive metabolic 2000 panel - Serum or Plasma Comprehensive metabolic panel Lab Routine Type 2 diabetes mellitus with hyperglycemia ([facility]) Primary hypertension ([facility]) Edema of extremities Type 2 diabetes mellitus without complication, with long-term current use of insulin ([facility]) Vitamin D deficiency Dizziness and giddiness Expected: 02/17/2024 (Approximate), Expires: 02/16/2025 [facility] Comment on above: Expected: 02/17/2024 (Approximate), Expi res: 02/16/2025 Start: 02-17-2024 End: 02-16-2025 Hemoglobin A1c/Hemoglobin.total in Blood Hemoglobin A1c Lab Routine Type 2 diabetes mellitus with hyperglycemia ([facility]/HCC) Expected: 02/17/2024 (Approximate), Expires: 02/16/2025 [facility] Comment on above: Expected: 02/17/2024 (Approximate), Expi res: 02/16/2025 Start: 02-17-2024 End: 02-16-2025 Magnesium [Mass/volume] in Serum or Plasma Magnesium Lab Routine Dizziness and giddiness Expected: 02/17/2024 (Approximate), Expires: 02/16/2025 [facility] Work Phone: Comment on above: Expected: 02/17/2024 (Approximate), Expi res: 02/16/2025 Start: 02-17-2024 End: 02-16-2025 Urinalysis complete panel - Urine Urinalysis with reflex microscopic (clean catch) Lab Routine Type 2 diabetes mellitus with hyperglycemia (CMS/HCC) Primary hypertension (CMS/HCC) Tobacco user Dizziness and giddiness Expected: 02/17/2024 (Approximate), Expires: 02/16/2025 [facility] Comment on above: Expected: 02/17/2024 (Approximate), Expi res: 02/16/2025 Start: 11-05-2023 Hemoglobin A1c measurement Diabetes: Hemoglobin A1C [facility] Start: 10-16-2023 End: 10-16-2023 Patient encounter procedure 10/16/2023 9:20 AM EDT Office Visit [facility] [address] [place] [address] Maira Rush NP [address] [place] [address] [facility] Start: 08-16-2023 End: 09-15-2024 MG Breast - bilateral Screening Bilateral screening mammogram Imaging Routine Encounter for screening mammogram for malignant neoplasm of breast Expected: 08/16/2023 (Approximate), Expires: 09/15/2024 [facility] Comment on above: Expected: 08/16/2023 (Approximate), Expi res: 09/15/2024 Start: 08-10-2023 Urine screening for protein Diabetes: Urine Protein Screening [facility] Start: 07-18-2023 End: 07-18-2023 Patient encounter procedure 07/18/2023 2:20 PM EST Office Visit [facility] [address] [place] [address] Maira Rush NP [address] [place] [address] Type 2 diabetes mellitus with diabetic neuropathy, with long-term current use of insulin (CMS/HCC) (Primary Dx); Primary hypertension (CMS/HCC); Gastroesophageal reflux disease, unspecified whether esophagitis present; Vitamin D deficiency; Type 2 diabetes mellitus with complication, without long-term current use of insulin (CMS/HCC); Mixed hyperlipidemia (CMS/HCC); Encounter for screening mammogram for malignant neoplasm of breast [facility] Comment on above: Type 2 diabetes [...] Expected: 07/18/2023 (Approximate), Expires: 07/18/2024 [facility] Comment on above: Expected: 07/18/2023 (Approximate), Expi res: 07/18/2024 Start: 07-18-2023 End: 07-18-2024 CBC W Auto Differential panel - Blood CBC and differential Lab Routine Gastroesophageal reflux disease, unspecified whether esophagitis present Expected: 07/18/2023 (Approximate), Expires: 07/18/2024 [facility] Work Phone: Comment on above: Expected: 07/18/2023 (Approximate), Expi res: 07/18/2024 Start: 07-18-2023 End: 07-18-2024 Comprehensive metabolic 2000 panel - Serum or Plasma Comprehensive metabolic panel Lab Routine Primary hypertension (CMS/HCC) Type 2 diabetes mellitus with complication, without long-term current use of insulin (CMS/HCC) Mixed hyperlipidemia (CMS/HCC) Expected: 07/18/2023 (Approximate), Expires: 07/18/2024 [facility] Comment on above: Expected: 07/18/2023 (Approximate), Expi res: 07/18/2024 Start: 07-18-2023 End: 07-18-2024 Hemoglobin A1c/Hemoglobin.total in Blood Hemoglobin A1c Lab Routine Type 2 diabetes mellitus with complication, without long-term current use of insulin (CMS/HCC) Expected: 07/18/2023 (Approximate), Expires: 07/18/2024 [facility] Comment on above: Expected: 07/18/2023 (Approximate), Expi res: 07/18/2024 Start: 07-18-2023 End: 07-18-2024 Lipid 1996 panel - Serum or Plasma Lipid panel Lab Routine Mixed hyperlipidemia ([facility]/HCC) Expected: 07/18/2023 (Approximate), Expires: 07/18/2024 [facility] Comment on above: Expected: 07/18/2023 (Approximate), Expi res: 07/18/2024 Start: 07-18-2023 End: 07-18-2024 Microalbumin/Creatinine panel in random Urine Microalbumin / creatinine, urine ratio Lab Routine Type 2 diabetes mellitus with complication, without long-term current use of insulin (CMS/HCC) Expected: 07/18/2023 (Approximate), Expires: 07/18/2024 [facility] Comment on above: Expected: 07/18/2023 (Approximate), Expi res: 07/18/2024 Start: 07-18-2023 End: 07-18-2024 Urinalysis complete panel - Urine Urinalysis with reflex microscopic (clean catch) Lab Routine Type 2 diabetes mellitus with complication, without long-term current use of insulin ([facility]/HCC) Expected: 07/18/2023 (Approximate), Expires: 07/18/2024 [facility] Comment on above: Expected: 07/18/2023 (Approximate), Expi res: 07/18/2024 Start: 06-19-2023 Screening for malignant neoplasm of breast Mammogram [facility] Start: 04-05-2023 Pneumococcal Vaccine: 65+ Years (2 of 2 - PCV) Pneumococcal Vaccine: 65+ Years (2 of 2 - PCV) [facility] Start: 02-01-2023 Influenza vaccination Influenza Vaccine (#1) [facility] Start: 01-07-2019 Hemoglobin A1c measurement Diabetes: Hemoglobin A1C [facility] Start: 1989 Screening for malignant neoplasm of cervix [facility] Start: 1980 Screening for malignant neoplasm of cervix Pap Smear [facility] Start: 1969 Glaucoma screening Diabetes: Retinopathy Screening [facility] Start: 1959 Screening for malignant neoplasm of colon [facility] AEROBIC CULTURE AEROBIC CULTURE Lab Routine 10/04/2024 2:22 AM EDT [facility] Immunizations Immunization Date Immunization Notes Care Provider Fa cility 05-06-2024 influenza, high dose seasonal, preservative-free Maira Aichholz [employer]INER[employer] TEACHER ASSISTANT Work Phone: [facility] 06-25-2023 Influenza, injectabl e, Madin Arline Canine Kidney, preservative free, quadrivalent Maira Aichholz ITINERANT TEACHER ASSISTANT Work Phone: [facility] 04-05-2022 influenza, injectabl e, quadrivalent, preservative free Maira Aichholz ITINERANT TEACHER ASSISTANT Work Phone: [facility] 04-05-2022 pneumococcal polysaccharide vaccine, 23 valent Maira Aichholz ITINERANT TEACHER ASSISTANT Work Phone: [facility] 04-05-2022 influenza virus vacc ine, unspecified formulation Maira Aichholz ITINERANT TEACHER ASSISTANT Work Phone: [facility] 11-23-2021 diphtheria, tetanus toxoids and pertussis vaccine Maira Aichholz ITINERANT TEACHER ASSISTANT Work Phone: [facility] 11-23-2021 tetanus toxoid, redu joaquin diphtheria toxoid, and acellular pertussis vaccine, adsorbed Maira Aichholz ITINERANT TEACHER ASSISTANT Work Phone: [facility] 2021 Influenza, injectabl e, Madin [place]line Canine Kidney, preservative free, quadrivalent Maira Aichholz ITINERANT TEACHER ASSISTANT Work Phone: [facility] 03-24-2020 tetanus toxoid, redu joaquin diphtheria toxoid, and acellular pertussis vaccine, adsorbed Maira Rush ITINERANT TEACHER ASSISTANT Work Phone: [facility] 03-25-2017 Influenza, injectabl e, Madin [place] Canine Kidney, preservative free, quadrivalent Maira Rush ITINERANT TEACHER ASSISTANT Work Phone: [facility] Payers Date Payer Category Payer Medicaid [employer] [place] [id number] 2017-Present [address] [place] [address] [id number] 2017 Medicaid (Managed Care) [employer] [id number] 1959 Unknown [id number] 2.0.1.731274.3.579.2. 647 1959 Unknown [id number] 07.19.830.1.663955.3.579.2. 647 1959 Unknown [id number] 2.840.1.750695.3.579.2. 593 1959 Unknown [id number] 2.16840.1.563021.3.579.2. 593 1959 Unknown [id number] 2.16840.1.960004.3.579.2. 593 1959 Unknown [id number] 2.840.1.207275.3.579.2. 593 1959 Unknown [id number] 2.16.840.1.940904.3.579.2. 593 1959 Unknown [id number] 2.16.840.1.627621.3.579.2. 593 1959 Unknown [id number] 2.16.840.1.587509.3.579.2. 593 1959 Unknown [id number] 2.16.840.1.204506.3.579.2. 1286 1959 Unknown [id number] 2.16.840.1.524733.3.579.2. 1286 1959 Unknown [id number] 2.16.840.1.248254.3.579.2. 125 1959 Unknown [id number] 2.16.840.1.804998.3.579.2. 9 1959 Unknown [id number] 2.16.840.1.700146.3.579.2. 125 1959 Unknown [id number] 2.16.840.1.382412.3.579.2. 125 1959 Unknown [id number] 2.16.840.1.722155.3.579.2. 1258 1959 Unknown [id number] 2.16.840.1.999379.3.579.2. 1259 1959 Unknown [id number] 2.16.840.1.338216.3.579.2. 125 1959 Unknown [id number] 2.16.840.1.813127.3.579.2. 1259 1959 Unknown [id number] 2.16.840.1.316125.3.579.2. 1258 1959 Unknown [id number] 2.16.840.1.081514.3.579.2. 1259 1959 Unknown [id number] 2.16.840.1.818586.3.579.2. 1258 1959 Unknown [id number] 2.16.840.1.277808.3.579.2. 1259 1959 Unknown [id number] 2.16.840.1.279999.3.579.2. 1259 1959 Unknown [id number] 2.16.840.1.752923.3.579.2. 1259 1959 Unknown [id number] 2.16.840.1.688336.3.579.2. 1286 1959 Unknown [id number] 2.16.840.1.917575.3.579.2. 1286 1959 Unknown [id number] Unknown Social History Date Type Detail Facility Start: 07-15-2023 Tobacco smoking stat [facility] Ex-smoker [facility] Start: 06-03-1982 End: 04-03-2022 History of tobacco use Current smoker [facility] Start: 06-03-1982 End: 04-03-2022 History of tobacco use Cigarette Smoker [facility] Start: 07-15-2023 End: 12-14-2024 Cigarettes smoked current (pack per day) - Reported 0.5 [facility] Start: 07-18-2023 End: 12-14-2024 Alcohol intake Ex-drinker (finding) [facility] Start: 06-29-2023 End: 12-14-2024 Tobacco use panel [facility] Start: 07-15-2023 Alcohol Comment coffee 1-2 cup s per day [facility] Start: 1960 Sex Assigned At [...] the mortgage or rent on time? Yes [facility] Medical Equipment Procedure Code Equipment Code Equipment Origin al Text Equipment Identifier Dates [id number] Start: 06-24-2023 End: 08-26-2024 USE TO TEST BLOO D SUGAR FOUR TIMES A DAY [id number] Start: 08-26-2024 USE FOUR TIMES A DAY [id number] Star t: 12-17-2024 USE DIRECTED PER PACKAGE INSTRUCTIONS *NEW RX REQUEST* [id number] Start: 12-15-2024 USE FOUR TIMES A DAY *NEW RX REQUEST* [id number] Start: 12-15-2024 Functional Status Date Assessment Result Facility 12-14-2024 Total score [AUDIT-C] 0 12/15/19 25 1:49 PM EDT Chandrika Danielson MA [facility] Clinical Notes 06-07-2022 to 12-14-2024 [...] it up there. Her is in a senior living as well here in [place]. She states she would just come to [...] MCG (2000 UT) tablet Daily Continuous Glucose [employer] Development Engineer (FreeStyle Julisa 2 [place]) device 1 kit, Does not apply, Every 14 days Continuous Glucose [employer] Development Engineer (FreeStyle Julisa 2 [place]) device USE DIRECTED Continuous Glucose Sensor (FreeStyle Julisa 2 Sensor) [facility] USE TO MONITOR BLOOD [...] day (morning and mid-day) Sure Comfort Pen [place] 32G X 4 MM misc 1 each, [...] Acute pancreatitis without necrosis or infection, unspecified ([facility]) Anxiety and depression 07/18/2023 Atrial fibrillation (HCC) 07/18/2023 Body mass index (BMI) 40.0-44.9, adult ([facility]) COPD mixed type ([facility]) 05/23/2023 Dietary counseling and surveillance Drug-induced acute pancreatitis ([facility]) 07/18/2023 Edema of extremities 07/18/2023 Essential (primary) hypertension 12/04/2010 GERD (gastroesophageal reflux disease) 07/18/2023 HLD (hyperlipidemia) 07/18/2023 Hx of being hospitalized PNEUMONIA correction (current) use of insulin ([facility]) Medical non-compliance 07/18/2023 Morbid obesity with body mass index (BMI) of 40.0 to 49.9 ([facility]) 07/18/2023 Neuropathy, diabetic ([facility]) 07/18/2023 SANTO (obstructive sleep apnea) 07/18/2023 Osteoporosis 07/18/2023 Seasonal allergies 07/18/2023 Tobacco user 07/18/2023 Type 2 diabetes mellitus with complication, without long-term current use of insulin ([facility]) 07/18/2023 Urge and stress incontinence 07/18/2023 Vitamin [...] with long-term current use of insulin ([facility]) - Primary Check blood sugars daily, notify [...] going to matter documented in this encounter [facility] 12-14-2024 Instructions Maira Rush NP - 12/14/2024 11:30 AM EDT Chronic care mgmt documented in this encounter [facility] 12-01-2024 History of Presen t illness Narrative [...] MCG (2000 UT) tablet Daily Continuous Glucose Solar Applications Development Engineer (FreeStyle Julisa 2 [place]) device 1 kit, Does not apply, Every 14 days Continuous Glucose Solar Applications Development Engineer (FreeStyle Jluisa 2 [place]) device USE DIRECTED Continuous Glucose Sensor (FreeStyle [...] day (morning and mid-day) Sure Comfort Pen [place] 32G X 4 MM misc 1 each, [...] without necrosis or infection, unspecified ([facility]) Anxiety and depression 07/18/2023 Atrial fibrillation ([facility]) 07/18/2023 Body mass index (BMI) 40.0-44.9, [place] COPD mixed type ([facility]) 05/23/2023 Dietary counseling and surveillance Drug-induced acute pancreatitis ([facility]) 07/18/2023 Edema of extremities 07/18/2023 Essential (primary) hypertension 12/04/2010 GERD (gastroesophageal reflux disease) 07/18/2023 HLD (hyperlipidemia) 07/18/2023 Hx of being hospitalized PNEUMONIA correction (current) use of insulin ([facility]) Medical non-compliance 07/18/2023 Morbid obesity with body mass index (BMI) of 40.0 to 49.9 [place] 07/18/2023 Neuropathy, diabetic ([facility]) 07/18/2023 SANTO (obstructive sleep apnea) 07/18/2023 Osteoporosis 07/18/2023 Seasonal allergies 07/18/2023 Tobacco user 07/18/2023 Type 2 diabetes mellitus with complication, without long-term current use of insulin ([facility]) 07/18/2023 Urge and stress incontinence 07/18/2023 Vitamin [...] 150 MG tablet documented in this encounter [facility] 12-01-2024 Instructions Maira Rush NP - 12/01/2024 1:40 PM EDT Nystatin ointment twice a day to affected area documented in this encounter [facility] 10-14-2024 History of Presen t illness Narrative Associated Problem(s): Mild episode of recurrent major depressive disorder (HCC) (CMS/HCC) Stressors: spouse in senior living , also not a strong support system Current med: paxil Will add medication: will trail wellbutrin Associated Problem(s): Abscess of left groin Finish atb According to [facility] discharge notes, she was to have HH [...] one helping with wound care-packing She thought [id number] was suppose to but she had called [...] admit to depression secondary to her in senior living with declining health. We have adjusted her [...] mg, Oral, 4 times daily Continuous Glucose Solar Applications Development Engineer (FreeStyle Julisa 2 [place]) device 1 kit, Does not apply, Every 14 days Continuous Glucose Solar Applications Development Engineer (FreeStyle Julisa 2 [place]) device USE DIRECTED Continuous Glucose Sensor (FreeStyle [...] day (morning and mid-day) Sure Comfort Pen [place] 32G X 4 MM misc 1 each, [...] necrosis or infection, unspecified Anxiety and depression ([facility]) 07/18/2023 Atrial fibrillation ([facility]) 07/18/2023 Body mass index (BMI) 40.0-44.9, adult ([facility]) COPD mixed type ([facility]) 05/23/2023 Dietary counseling and surveillance Drug-induced acute pancreatitis 07/18/2023 Edema of extremities 07/18/2023 Essential (primary) hypertension ([facility]) 12/04/2010 GERD (gastroesophageal reflux disease) 07/18/2023 HLD (hyperlipidemia) ([facility]) 07/18/2023 Hx of being hospitalized PNEUMONIA correction (current) use of insulin ([facility]) Medical non-compliance 07/18/2023 Morbid obesity with body mass index (BMI) of 40.0 to 49.9 ([facility]) 07/18/2023 Neuropathy, diabetic ([facility]) 07/18/2023 SANTO (obstructive sleep apnea) 07/18/2023 Osteoporosis ([facility]) 07/18/2023 Seasonal allergies 07/18/2023 Tobacco user 07/18/2023 Type 2 diabetes mellitus with complication, without long-term current use of insulin ([facility]) 07/18/2023 Urge and stress [...] of left groin Finish atb According to [facility] discharge notes, she was to have HH [...] dania and arb documented in this encounter [facility] 08-06-2024 History of Presen t illness Narrative September- dr kalina Bender-pulmonology (walk test) 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 Images from the original note were not [...] MCG (2000 UT) tablet Daily Continuous Glucose Solar Applications Development Engineer (FreeStyle Julisa 2 [place]) device 1 kit, Does not apply, Every 14 days Continuous Glucose Solar Applications Development Engineer (FreeStyle Julisa 2 [place]) device USE DIRECTED Continuous Glucose Sensor (FreeStyle [...] day (morning and mid-day) Sure Comfort Pen [place] 32G X 4 MM misc 1 each, [...] or infection, unspecified Anxiety and depression ([facility]) 07/18/2023 Atrial fibrillation ([facility]) 07/18/2023 Body mass index (BMI) 40.0-44.9, adult ([facility]) COPD mixed type ([facility]) 05/23/2023 Dietary counseling and surveillance Drug-induced acute pancreatitis 07/18/2023 Edema of extremities 07/18/2023 Essential (primary) hypertension ([facility]) 12/04/2010 GERD (gastroesophageal reflux disease) 07/18/2023 HLD (hyperlipidemia) ([facility]) 07/18/2023 Hx of being hospitalized PNEUMONIA 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 ([facility]) Medical non-compliance 07/18/2023 Morbid obesity with body mass index (BMI) of 40.0 to 49.9 ([facility]) 07/18/2023 Neuropathy, diabetic ([facility]) 07/18/2023 SANTO (obstructive sleep apnea) 07/18/2023 Osteoporosis ([facility]) 07/18/2023 Seasonal allergies 07/18/2023 Tobacco user 07/18/2023 Type 2 diabetes mellitus with complication, without long-term current use of insulin ([facility]) 07/18/2023 Urge and stress [...] Addressed This Visit COPD mixed type ([facility]) Recommend quitting smoking Continue inhalers 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: 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 walk test 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 Recommend follow up Primary hypertension ([facility]) Please check blood pressure daily and record DASH diet Limit caffeine Take medication as directed Contact office if chest pain, pressure, dizziness, shortness of breath, swelling legs Recommend slow position changes Current meds: b dania and arb Relevant Medications losartan (Cozaar) 100 MG tablet spironolactone (Aldactone) 25 MG tablet JORDAN (generalized anxiety disorder) ([facility]) - Primary Current med: paxil Stressors: spouse in senior living, pt does not have a large support [...] that it is the responsibility of the optometrist president/practice owner of the [employer], no this healthcare provider. The patient verbalizes understanding of this . Has a cat Relevant Medications PARoxetine (Paxil) 30 MG tablet SANTO (obstructive sleep apnea) Non compliance , has been instructed in the past on importance of need to wear PAP Not wearing risk stroke, [place], Atrial fibrillation ([facility]) No current afib Current meds: xarelto, b [...] not wear PAP as directed HLD (hyperlipidemia) ([facility]) Relevant Medications rosuvastatin (Crestor) 5 MG tablet RESOLVED: Anxiety and depression ([facility]) Encounter for screening mammogram for malignant neoplasm [...] with long-term current use of insulin ([facility]) Check blood sugars daily, notify if <70 [...] Type 2 diabetes mellitus with diabetic polyneuropathy ([facility]) Takes gabapentin OARRS reviewed Recommend freq foot checks for wounds, recommend proper fitting footwear as well as adequate diabetic control 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 ([facility]) Mild episode of recurrent major depressive disorder (HCC) ([facility]) Stressors: spouse in senior living , also not a strong support system [...] that it is the responsibility of the optometrist president/practice owner of the [employer], no this healthcare provider. [...] associated with type 2 diabetes mellitus ([facility]) Relevant Medications gabapentin (Neurontin) 600 MG tablet [...] episode of recurrent major depressive disorder (HCC) ([facility]) Stressors: spouse in senior living , also not a strong support system [...] that it is the responsibility of the optometrist president/practice owner of the [employer], no this healthcare provider. The patient verbalizes understanding of this . Has a cat Associated Problem(s): JORDAN (generalized anxiety disorder) ([facility]) Current med: paxil Stressors: spouse in senior living, pt does not have a large support [...] that it is the responsibility of the optometrist president/practice owner of the [employer], no this healthcare provider. The patient verbalizes understanding of this . Has a cat Associated Problem(s): Medical non-compliance Has not had fu with pulmonology Does not wear PAP as directed Associated Problem(s): Type 2 diabetes mellitus without complication, with long-term current use of insulin ([facility]) Check blood sugars daily, notify if <70 [...] Recommend quitting smoking Continue inhalers Fu with hat renovator: has a walk test coming up Recommend follow up Associated Problem(s): Type 2 diabetes mellitus with diabetic polyneuropathy ([facility]) Takes gabapentin OARRS reviewed Recommend freq foot checks for wounds, recommend proper fitting footwear as well as adequate diabetic control Associated Problem(s): SANTO (obstructive sleep apnea) Non compliance , has been instructed in the past on importance of need to wear PAP Not wearing risk stroke, [place], documented in this encounter [facility] 08-06-2024 History of Presen t illness Narrative September- dr kalina Bender-pulmonology (walk test) 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 Images from the original note were not [...] 50 MCG (1999) tablet Daily Continuous Glucose Solar Applications Development Engineer (FreeStyle Julisa 2 [place]) device 1 kit, Does not apply, Every 14 days Continuous Glucose Solar Applications Development Engineer (FreeStyle Julisa 2 [place]) device USE DIRECTED Continuous Glucose Sensor (FreeStyle [...] day (morning and mid-day) Sure Comfort Pen [place] 32G X 4 MM misc 1 each, [...] or infection, unspecified Anxiety and depression ([facility]) 07/18/2023 Atrial fibrillation ([facility]) 07/18/2023 Body mass index (BMI) 40.0-44.9, adult ([facility]) COPD mixed type ([facility]) 05/23/2023 Dietary counseling and surveillance Drug-induced acute pancreatitis 07/18/2023 Edema of extremities 07/18/2023 Essential (primary) hypertension ([facility]) 12/04/2010 GERD (gastroesophageal reflux disease) 07/18/2023 HLD (hyperlipidemia) ([facility]) 07/18/2023 Hx of being hospitalized PNEUMONIA correction (current) use of insulin ([facility]) Medical non-compliance 07/18/2023 Morbid obesity with body mass index (BMI) of 40.0 to 49.9 ([facility]) 07/18/2023 Neuropathy, diabetic ([facility]) 07/18/2023 SANTO (obstructive sleep apnea) 07/18/2023 Osteoporosis ([facility]) 07/18/2023 Seasonal allergies 07/18/2023 Tobacco user 07/18/2023 Type 2 diabetes mellitus with complication, without long-term current use of insulin ([facility]) 07/18/2023 Urge and stress [...] Addressed This Visit COPD mixed type ([facility]) Recommend quitting smoking Continue inhalers Fu with hat renovator: has a walk test coming up Recommend follow up Primary hypertension ([facility]) Please check blood pressure daily and record DASH diet Limit caffeine Take medication as directed Contact office if chest pain, pressure, dizziness, shortness of breath, swelling legs Recommend slow position changes Current meds: b dania and arb Relevant Medications losartan (Cozaar) 100 MG tablet spironolactone (Aldactone) 25 MG tablet JORDAN (generalized anxiety disorder) ([facility]) - Primary Current med: paxil Stressors: spouse in senior living, pt does not have a large support [...] that it is the responsibility of the optometrist president/practice owner of the [employer], no this healthcare provider. The patient verbalizes understanding of this . Has a cat Relevant Medications PARoxetine (Paxil) 30 MG tablet SANTO (obstructive sleep apnea) Non compliance , has been instructed in the past on importance of need to wear PAP Not wearing risk stroke, [place], Atrial fibrillation ([facility]) No current afib Current meds: xarelto, b [...] not wear PAP as directed HLD (hyperlipidemia) ([facility]) Relevant Medications rosuvastatin (Crestor) 5 MG tablet RESOLVED: Anxiety and depression ([facility]) Encounter for screening mammogram for malignant neoplasm [...] with long-term current use of insulin ([facility]) Check blood sugars daily, notify if <70 [...] Type 2 diabetes mellitus with diabetic polyneuropathy ([facility]) Takes gabapentin OARRS reviewed Recommend freq foot checks for wounds, recommend proper fitting footwear as well as adequate diabetic control 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 ([facility]) Mild episode of recurrent major depressive disorder (HCC) ([facility]) Stressors: spouse in senior living , also not a strong support system [...] that it is the responsibility of the optometrist president/practice owner of the [employer], no this healthcare provider. [...] associated with type 2 diabetes mellitus ([facility]) Relevant Medications gabapentin (Neurontin) 600 MG tablet [...] episode of recurrent major depressive disorder (HCC) ([facility]) Stressors: spouse in senior living , also not a strong support system [...] that it is the responsibility of the optometrist president/practice owner of the [employer], no this healthcare provider. The patient verbalizes understanding of this . Has a cat Associated Problem(s): JORDAN (generalized anxiety disorder) ([facility]) Current med: paxil Stressors: spouse in senior living, pt does not have a large support [...] that it is the responsibility of the optometrist president/practice owner of the [employer], no this healthcare provider. The patient verbalizes understanding of this . Has a cat Associated Problem(s): Medical non-compliance Has not had fu with pulmonology Does not wear PAP as directed Associated Problem(s): Type 2 diabetes mellitus without complication, with long-term current use of insulin ([facility]) Check blood sugars daily, notify if <70 [...] Recommend quitting smoking Continue inhalers Fu with hat renovator: has a walk test coming up Recommend [...] risk stroke, [place], documented in this encounter [facility] 08-06-2024 Instructions Maira Rush NP - 08/06/2024 9:20 AM EST Increase the paroxetine to 30mg daily, If worsening in depression or anxiety with the medication adjustment call the office Also will send order to [facility] for mammogram I will check w cardiology about aspirin documented in this encounter [facility] 07-06-2024 Note Cardiology Clinic No te Subjective [...] index (BMI) of 40.0 to 49.9 ([facility]) Neuropathy, diabetic ([facility]) Open wound Osteoporosis Seasonal allergies Tobacco user Urge and stress incontinence Vitamin D deficiency 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 CAP (community acquired pneumonia) COVID Dizziness and giddiness Hyperglycemia 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 classified elsewhere Injury of back of head correction (current) use of insulin ([facility]) Lung nodule, multiple Lymphadenopathy, generalized Muscle weakness (generalized) Other abnormalities of gait and mobility Other thrombophilia Oxygen dependent Right wrist pain Stage III pressure ulcer of sacral region ([facility]) Type 2 diabetes mellitus with diabetic polyneuropathy ([facility]) Type 2 diabetes mellitus with hyperglycemia ([facility]) Weakness Family History Problem Relation Name Age [...] Rfl: rivaroxaban ( (more content not included)... [facility] History of Presen t illness Narrative Denae Dior is a 63 y.o. female presents with chief complaint of COPD HPI: Here for an ER fu. Was last seen in office on 05/28/24 with URI symptoms, d/t assessment and chronic conditions she was sent to [facility] ER, she was ultimately dx with COVID, as well as sent home on steroids (40mg daily for 5 days) and doxycycline for COPD exacerbation. She returned to the [facility] ER on 06/01/24 with complaints of blood [...] MCG (1999 UT) tablet Daily Continuous Glucose Solar Applications Development Engineer (FreeStyle Julisa 2 [place]) device 1 kit, Does not apply, Every 14 days Continuous Glucose Solar Applications Development Engineer (FreeStyle Julisa 2 [place]) device USE DIRECTED Continuous Glucose Sensor (FreeStyle [...] day (morning and mid-day) Sure Comfort Pen [place] 32G X 4 MM misc 1 each, [...] necrosis or infection, unspecified Anxiety and depression ([facility]) 07/18/2023 Atrial fibrillation ([facility]) 07/18/2023 Body mass index (BMI) 40.0-44.9, adult ([facility]) COPD mixed type ([facility]) 05/23/2023 Dietary counseling and surveillance Drug-induced acute pancreatitis 07/18/2023 Edema of extremities 07/18/2023 Essential (primary) hypertension ([facility]) 12/04/2010 GERD (gastroesophageal reflux disease) 07/18/2023 HLD (hyperlipidemia) ([facility]) 07/18/2023 Hx of being hospitalized PNEUMONIA correction (current) use of insulin ([facility]) Medical non-compliance 07/18/2023 Morbid obesity with body mass index (BMI) of 40.0 to 49.9 ([facility]) 07/18/2023 Neuropathy, diabetic ([facility]) 07/18/2023 SANTO (obstructive sleep apnea) 07/18/2023 Osteoporosis ([facility]) 07/18/2023 Seasonal allergies 07/18/2023 Tobacco user 07/18/2023 Type 2 diabetes mellitus with complication, without long-term current use of insulin ([facility]) 07/18/2023 Urge and stress [...] Addressed This Visit COPD mixed type ([facility]) Quit smoking Continue inhalers Fu with pulmonologoist Recent covid dx Primary hypertension ([facility]) Please check blood pressure daily and record DASH diet Limit caffeine Take medication as directed Contact office if chest pain, pressure, dizziness, shortness of breath, swelling legs Recommend slow position changes Current meds: b dania and arb Atrial fibrillation ([facility]) No current afib Current meds: asa, [...] facility 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 classified elsewhere ([facility]) Type 2 diabetes mellitus with hyperglycemia ([facility]) Check blood sugars daily, notify if <70 [...] Type 2 diabetes mellitus with diabetic polyneuropathy ([facility]) Long standing DM, recommend freq foot checks for open wounds Good fitting shoes Diabetes control 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 ([facility]) Associated Problem(s): COVID Was dx 05/28/24 w [...] Problem(s): Type 2 diabetes mellitus with hyperglycemia ([facility]) Check blood sugars daily, notify if <70 [...] shoes Diabetes control documented in this encounter [facility] 06-09-2024 Instructions Maira Rush NP - 06/09/2024 11:00 AM EST Diabetes: please call and schedule a diabetic eye exam Smokin cigs daily for this week, then next week 2 cigs daily, then week #3: 1 cig daily, then week #4: stop: You can do this, do it for your overall health and health of your lungs documented in this encounter [facility] 05-28-2024 History of Presen t illness Narrative Associated Problem(s): COPD with acute exacerbation ([facility]) Recent hospitalization with pneumonia in the last few months Is on home O2, also with nebs at home, states no difference in her wheezing with or without the neb UTD on flu shot, not on COVID Had CT chest on 05/25/24 but did not have sxs at that time Her is in a senior living, possible exposure to something there Differentials: atypical [...] 2 times daily with meals Continuous Glucose Solar Applications Development Engineer (FreeStyle Julisa 2 [place]) device 1 kit, Does not apply, Every 14 days Continuous Glucose Solar Applications Development Engineer (FreeStyle Julisa 2 [place]) device USE DIRECTED Continuous Glucose Sensor (FreeStyle [...] day (morning and mid-day) Sure Comfort Pen [place] 32G X 4 MM misc 1 each, [...] necrosis or infection, unspecified Anxiety and depression ([facility]) 07/18/2023 Atrial fibrillation ([facility]) 07/18/2023 Body mass index (BMI) 40.0-44.9, adult ([facility]) COPD mixed type ([facility]) 05/23/2023 Dietary counseling and surveillance Drug-induced acute pancreatitis 07/18/2023 Edema of extremities 07/18/2023 Essential (primary) hypertension ([facility]) 12/04/2010 GERD (gastroesophageal reflux disease) 07/18/2023 HLD (hyperlipidemia) ([facility]) 07/18/2023 Hx of being hospitalized PNEUMONIA 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 ([facility]) Medical non-compliance 07/18/2023 Morbid obesity with body mass index (BMI) of 40.0 to 49.9 ([facility]) 07/18/2023 Neuropathy, diabetic ([facility]) 07/18/2023 SANTO (obstructive sleep apnea) 07/18/2023 Osteoporosis ([facility]) 07/18/2023 Seasonal allergies 07/18/2023 Tobacco user 07/18/2023 Type 2 diabetes mellitus with complication, without long-term current use of insulin ([facility]) 07/18/2023 Urge and stress [...] ASSESSMENT AND PLAN: documented in this encounter [facility] 05-28-2024 History of Presen t illness Narrative Associated Problem(s): 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 (CMS/HCC) Noted on past CT scans, felt to be adenoma, however is getting larger in size Will order CT scan adrenal gland protocol documented in this encounter [facility] 05-19-2024 History of Presen t illness Narrative [...] D-3) 50 mcg, Oral, Daily Continuous Glucose Solar Applications Development Engineer (FreeStyle Julisa 2 [place]) device 1 kit, Does not apply, Every 14 days Continuous Glucose Solar Applications Development Engineer (FreeStyle Julisa 2 [place]) device USE DIRECTED Continuous Glucose Sensor (FreeStyle [...] day (morning and mid-day) Sure Comfort Pen [place] 32G X 4 MM misc 1 each, [...] or infection, unspecified Anxiety and depression ([facility]) 07/18/2023 Atrial fibrillation ([facility]) 07/18/2023 Body mass index (BMI) 40.0-44.9, adult ([facility]) COPD mixed type ([facility]) 05/23/2023 Dietary counseling and surveillance Drug-induced acute pancreatitis 07/18/2023 Edema of extremities 07/18/2023 Essential (primary) hypertension ([facility]) 12/04/2010 GERD (gastroesophageal reflux disease) 07/18/2023 HLD (hyperlipidemia) ([facility]) 07/18/2023 Hx of being hospitalized PNEUMONIA 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 ([facility]) Medical non-compliance 07/18/2023 Morbid obesity with body mass index (BMI) of 40.0 to 49.9 ([facility]) 07/18/2023 Neuropathy, diabetic ([facility]) 07/18/2023 SANTO (obstructive sleep apnea) 07/18/2023 Osteoporosis ([facility]) 07/18/2023 Seasonal allergies 07/18/2023 Tobacco user 07/18/2023 Type 2 diabetes mellitus with complication, without long-term current use of insulin ([facility]) 07/18/2023 Urge and stress [...] as well as stress from S.O. in senior living Right wrist pain - Primary No hx [...] as well as stress from S.O. in senior living documented in this encounter [facility] 05-19-2024 Instructions Maira Rush NP - 05/19/2024 2:00 PM EST Cosmo wrap to right wrist for [address] ice to affected area 3-4 times daily for 20 minutes each Follow up if not better documented in this encounter [facility] 05-06-2024 History of Presen t illness Narrative [...] D-3) 50 mcg, Oral, Daily Continuous Glucose Solar Applications Development Engineer (FreeStyle Julisa 2 [place]) device 1 kit, Does not apply, Every 14 days Continuous Glucose Solar Applications Development Engineer (FreeStyle Julisa 2 [place]) device USE DIRECTED Continuous Glucose Sensor (FreeStyle [...] day (morning and mid-day) Sure Comfort Pen [place] 32G X 4 MM misc 1 each, [...] necrosis or infection, unspecified Anxiety and depression ([facility]) 07/18/2023 Atrial fibrillation ([facility]) 07/18/2023 Body mass index (BMI) 40.0-44.9, adult ([facility]) COPD mixed type ([facility]) 05/23/2023 Dietary counseling and surveillance Drug-induced acute pancreatitis 07/18/2023 Edema of extremities 07/18/2023 Essential (primary) hypertension ([facility]) 12/04/2010 GERD (gastroesophageal reflux disease) 07/18/2023 HLD (hyperlipidemia) ([facility]) 07/18/2023 Hx of being hospitalized PNEUMONIA correction (current) use of insulin ([facility]) Medical non-compliance 07/18/2023 Morbid obesity with body mass index (BMI) of 40.0 to 49.9 ([facility]) 07/18/2023 Neuropathy, diabetic ([facility]) 07/18/2023 SANTO (obstructive sleep apnea) 07/18/2023 Osteoporosis ([facility]) 07/18/2023 Seasonal allergies 07/18/2023 Tobacco user 07/18/2023 Type 2 diabetes mellitus with complication, without long-term current use of insulin ([facility]) 07/18/2023 Urge and stress incontinence 07/18/2023 Vitamin [...] Addressed This Visit COPD mixed type ([facility]) - Primary Quit smoking Continue inhalers Fu with pulmonologoist Primary hypertension ([facility]) Please check blood pressure daily and record [...] Not wearing risk stroke, [place], Atrial fibrillation ([facility]) Cont current meds and anticoagulation Tobacco user [...] with long-term current use of insulin ([facility]) Check blood sugars daily, notify if <70 [...] Needs fu CT due now, order to [facility] CAP (community acquired pneumonia) Finished atb Breathing: improved Fever:none No productive cough Other Visit Diagnoses Needs flu shot Relevant Orders Flu vaccine, high dose seasonal, PF ([id number]) (Fluzone High Dose) (Completed) Associated Problem(s): Tobacco [...] with long-term current use of insulin ([facility]) Check blood sugars daily, notify if <70 [...] arb and asa Associated Problem(s): Atrial fibrillation ([facility]) Cont current meds and anticoagulation Associated Problem(s): Primary hypertension ([facility]) Please check blood pressure daily and record [...] Needs fu CT due now, order to [facility] Associated Problem(s): SANTO (obstructive sleep apnea) Non compliance , has been instructed in the past on importance of need to wear PAP Not wearing risk stroke, [place], documented in this encounter [facility] 05-06-2024 Instructions Maira Rush NP - 05/06/2024 1:20 PM EST Diabetes: continue with dr allison, please call and schedule a diabetic eye exam Batch Unloader: please call to schedule an appointment Mammogram: I will fax order to [facility] documented in this encounter [facility] 04-22-2024 History of Presen t illness Narrative [...] Hospitalizations in the last year: yes Specialist: [employer] [facility] Kalina Torres for Endo/DM, Batch Unloader: Janet-has not seen in a while Recent [...] being taken. She does not see a travel agent.Eye exam is not current. SUBJECTIVE: MEDICATIONS: Current [...] D-3) 50 mcg, Oral, Daily Continuous Glucose Solar Applications Development Engineer (FreeStyle Julisa 2 [place]) device Continuous Glucose Solar Applications Development Engineer (FreeStyle Julisa 2 [place]) device 1 kit, Does not apply, Every [...] day (morning and mid-day) Sure Comfort Pen [place] 32G X 4 MM misc 1 each, [...] necrosis or infection, unspecified Anxiety and depression ([facility]) 07/18/2023 Atrial fibrillation ([facility]) 07/18/2023 Body mass index (BMI) 40.0-44.9, adult ([facility]) COPD mixed type ([facility]) 05/23/2023 Dietary counseling and surveillance Drug-induced acute pancreatitis 07/18/2023 Edema of extremities 07/18/2023 Essential (primary) hypertension ([facility]) 12/04/2010 GERD (gastroesophageal reflux disease) 07/18/2023 HLD (hyperlipidemia) ([facility]) 07/18/2023 Hx of being hospitalized PNEUMONIA correction (current) use of insulin ([facility]) Medical non-compliance 07/18/2023 Morbid obesity with body mass index (BMI) of 40.0 to 49.9 ([facility]) 07/18/2023 Neuropathy, diabetic ([facility]) 07/18/2023 SANTO (obstructive sleep apnea) 07/18/2023 Osteoporosis ([facility]) 07/18/2023 Seasonal allergies 07/18/2023 Tobacco user 07/18/2023 Type 2 diabetes mellitus with complication, without long-term current use of insulin ([facility]) 07/18/2023 Urge and stress [...] chest w IV contrast Primary hypertension ([facility]) Please check blood pressure daily and record DASH diet Limit caffeine Take medication as directed Contact office if chest pain, pressure, dizziness, shortness of breath, swelling legs Recommend slow position changes Relevant Medications spironolactone (Aldactone) 25 MG tablet losartan (Cozaar) 100 MG tablet Type 2 diabetes mellitus with diabetic neuropathy, with long-term current use of insulin ([facility]) Recommend tight blood sugar control Relevant Medications [...] (Crestor) 5 MG tablet Anxiety and depression ([facility]) At last appt we increased dose of paxil: Relevant Medications PARoxetine (Paxil) 20 MG tablet Obesity (BMI 30-39.9) Type 2 diabetes mellitus without complication, with long-term current use of insulin ([facility]) Continue with dr allison for management of [...] yearly and prn documented in this encounter [facility] 04-22-2024 Instructions Maira Rush NP - 04/22/2024 9:20 AM EST New atb for pneumonia Need to schedule with pulmonology and eye doctor Eye doctor is : [phone] [facility] doctor: [place] office [phone] documented in this encounter [facility] 04-21-2024 History of Presen t illness Narrative [...] (VITAMIN D-3) 2,000 Units, Daily Continuous Glucose Solar Applications Development Engineer (FreeStyle Julisa 2 [place]) device Continuous Glucose Sensor (FreeStyle Julisa 2 Sensor) [facility] empagliflozin (JARDIANCE) 25 mg, [...] day (morning and mid-day) Sure Comfort Pen [place] 32G X 4 MM misc 1 each, [...] necrosis or infection, unspecified Anxiety and depression ([facility]) 07/18/2023 Atrial fibrillation ([facility]) 07/18/2023 Body mass index (BMI) 40.0-44.9, adult ([facility]) COPD mixed type ([facility]) 05/23/2023 Dietary counseling and surveillance Drug-induced acute pancreatitis 07/18/2023 Edema of extremities 07/18/2023 Essential (primary) hypertension ([facility]) 12/04/2010 GERD (gastroesophageal reflux disease) 07/18/2023 HLD (hyperlipidemia) ([facility]) 07/18/2023 Hx of being hospitalized PNEUMONIA correction (current) use of insulin ([facility]) Medical non-compliance 07/18/2023 Morbid obesity with body mass index (BMI) of 40.0 to 49.9 ([facility]) 07/18/2023 Neuropathy, diabetic ([facility]) 07/18/2023 SANTO (obstructive sleep apnea) 07/18/2023 Osteoporosis ([facility]) 07/18/2023 Seasonal allergies 07/18/2023 Tobacco user 07/18/2023 Type 2 diabetes mellitus with complication, without long-term current use of insulin ([facility]) 07/18/2023 Urge and stress [...] with long-term current use of insulin ([facility]) - POCT glucose manually resulted - POCT [...] the patient Vitamin D deficiency Primary hypertension ([facility]) To follow with her PCP Hyperlipemia, mixed ([facility]) Continue with statin Crestor 5 mg once a day Insulin long-term use ([facility]) Class 1 obesity due to excess calories without serious comorbidity with body mass index (BMI) of 33.0 to 33.9 in adult Follow up in about 3 months (around 07/22/2024). documented in this encounter [facility] 04-09-2024 Telephone encounter Note I would like Denae Dior to be enrolled in [facility] if her insurance allows She is now living on her own, [place] She has not been to see Dr Allison for some time, he is the one to manage her DM, recent A1c is 10.4% [place] [facility] 04-09-2024 Miscellaneous Notes I would like Denae Dior to be enrolled in [facility] if her insurance allows She is now living on her own, is [place] She has not been to see Dr Allison for some time, he is the one to manage her DM, recent A1c is 10.4% [place] documented in this encounter [facility] 03-18-2024 Telephone encounter Note Contact provider this morning, she is now starting to cough up yellow mucus and worsening in symtpoms, no fever, no NVD Will send in atb Also needs humidification for her oxygen She is instructed if atb does not help will need fu apppt [place] [facility] 03-18-2024 Miscellaneous Notes Contact provider this morning, she is now starting to cough up yellow mucus and worsening in symtpoms, no fever, no NVD Will send in atb Also needs humidification for her oxygen She is instructed if atb does not help will need fu apppt [place] documented in this encounter [facility] 03-11-2024 History of Presen t illness Narrative Associated Problem(s): Type 2 diabetes mellitus without complication, with long-term current use of insulin ([facility]) Phone number given for pt to contact [...] D-3) 2,000 Units, Oral, Daily Continuous Glucose Solar Applications Development Engineer (FreeStyle Julisa 2 [place]) device Continuous Glucose Sensor (FreeStyle Julisa 2 [...] day (morning and mid-day) Sure Comfort Pen [place] 32G X 4 MM misc 1 each, [...] History: Diagnosis Date Anxiety and depression ([facility]) 07/18/2023 Atrial fibrillation ([facility]) 07/18/2023 COPD mixed type ([facility]) 05/23/2023 Drug-induced acute pancreatitis 07/18/2023 Edema of extremities 07/18/2023 GERD (gastroesophageal reflux disease) 07/18/2023 HLD (hyperlipidemia) ([facility]) 07/18/2023 Medical non-compliance 07/18/2023 Morbid obesity with body mass index (BMI) of 40.0 to 49.9 ([facility]) 07/18/2023 Neuropathy, diabetic ([facility]) 07/18/2023 SANTO (obstructive sleep apnea) 07/18/2023 Osteoporosis ([facility]) 07/18/2023 Seasonal allergies 07/18/2023 Tobacco user 07/18/2023 Type 2 diabetes mellitus with complication, without long-term current use of insulin ([facility]) 07/18/2023 Urge and stress [...] with long-term current use of insulin ([facility]) Phone number given for pt to contact Dr Allison office Relevant Orders Ambulatory referral to [facility] Viral upper respiratory tract infection - Primary Do not see any s/s bacterial infection, lungs clear Did in office Flu A/B/Covid: negative Fluids, rest, monitor for s/s worsening if so call office documented in this encounter [facility] 02-25-2024 History of Presen t illness Narrative [...] 25mg BID Her new med supply from [facility] is 25mg BID This may be related to her dizziness Will obtain notes from [facility], I did call medical records and left voice mail to send all ER notes for recent visit Associated Problem(s): Type 2 diabetes mellitus without complication, with long-term current use of insulin ([facility]) Continue current dosing of insulin at BID [...] fu appt with them Was in the [facility] er yesterday for dizziness: room spinning, no [...] D-3) 2,000 Units, Oral, Daily Continuous Glucose Solar Applications Development Engineer (FreeStyle Julisa 2 [place]) device Continuous Glucose Sensor (FreeStyle Julisa 2 [...] day (morning and mid-day) Sure Comfort Pen [place] 32G X 4 MM misc 1 each, [...] Medical History: Diagnosis Date Anxiety and depression ([facility]) 07/18/2023 Atrial fibrillation ([facility]) 07/18/2023 COPD mixed type ([facility]) 05/23/2023 Drug-induced acute pancreatitis 07/18/2023 Edema of extremities 07/18/2023 GERD (gastroesophageal reflux disease) 07/18/2023 HLD (hyperlipidemia) ([facility]) 07/18/2023 Medical non-compliance 07/18/2023 Morbid obesity with body mass index (BMI) of 40.0 to 49.9 ([facility]) 07/18/2023 Neuropathy, diabetic ([facility]) 07/18/2023 SANTO (obstructive sleep apnea) 07/18/2023 Osteoporosis ([facility]) 07/18/2023 Seasonal allergies 07/18/2023 Tobacco user 07/18/2023 Type 2 diabetes mellitus with complication, without long-term current use of insulin ([facility]) 07/18/2023 Urge and stress [...] with long-term current use of insulin ([facility]) Continue current dosing of insulin at BID [...] 25mg BID Her new med supply from [facility] is 25mg BID This may be related to her dizziness Will obtain notes from [facility], I did call medical records and left voice mail to send all ER notes for recent visit Open wound of buttock - Primary Recommend cleansing area with soap and water 3-4 times daily and apply zinc oxide cream Increase protein intake Fu in 2 weeks for recheck No atb needed at this time documented in this encounter [facility] 02-17-2024 History of Presen t illness Narrative Associated Problem(s): Dizziness and giddiness Could be still with getting stronger, also will check labs to r/o anemia or elyte abnormals Fu in 3 weeks Continue with home OT/PT Associated Problem(s): Type 2 diabetes mellitus without complication, with long-term current use of insulin ([facility]) Continue current dosing of insulin at BID And sliding scale insulin Associated Problem(s): Edema of extremities Stable at this time Associated Problem(s): Primary hypertension ([facility]) Stable at this time Associated Problem(s): Atrial fibrillation (CMS/HCC) Cont current meds and anticoagulation BS 200 or less Images from the original note were not included. Denae Dior is a 63 y.o. female presents with chief complaint of No chief complaint on file. HPI: Recent discharge from hospital and senior living for weakness and inability to care for [...] D-3) 2,000 Units, Oral, Daily Continuous Glucose Solar Applications Development Engineer (FreeStyle Julisa 2 [place]) device Continuous Glucose Sensor (FreeStyle Julisa 2 [...] Oral, 2 times daily Sure Comfort Pen [place] 32G X 4 MM misc 1 each, [...] Medical History: Diagnosis Date Anxiety and depression ([facility]) 07/18/2023 Atrial fibrillation ([facility]) 07/18/2023 COPD mixed type ([facility]) 05/23/2023 Drug-induced acute pancreatitis 07/18/2023 Edema of extremities 07/18/2023 GERD (gastroesophageal reflux disease) 07/18/2023 HLD (hyperlipidemia) ([facility]) 07/18/2023 Medical non-compliance 07/18/2023 Morbid obesity with body mass index (BMI) of 40.0 to 49.9 ([facility]) 07/18/2023 Neuropathy, diabetic ([facility]) 07/18/2023 SANTO (obstructive sleep apnea) 07/18/2023 Osteoporosis ([facility]) 07/18/2023 Seasonal allergies 07/18/2023 Tobacco user 07/18/2023 Type 2 diabetes mellitus with complication, without long-term current use of insulin ([facility]) 07/18/2023 Urge and stress [...] microscopic (clean catch) documented in this encounter [facility] 07-18-2023 History of Presen t illness [...] with long-term current use of insulin ([facility]) Non compliant with follow up with Endo [...] 2 puffs, Inhalation, Daily Sure Comfort Pen [place] 32G X 4 MM misc 1 each, [...] Medical History: Diagnosis Date Anxiety and depression ([facility]) 07/18/2023 Atrial fibrillation ([facility]) 07/18/2023 COPD mixed type ([facility]) 05/23/2023 Drug-induced acute pancreatitis 07/18/2023 Edema of extremities 07/18/2023 GERD (gastroesophageal reflux disease) 07/18/2023 HLD (hyperlipidemia) ([facility]) 07/18/2023 Medical non-compliance 07/18/2023 Morbid obesity with body mass index (BMI) of 40.0 to 49.9 ([facility]) 07/18/2023 Neuropathy, diabetic ([facility]) 07/18/2023 SANTO (obstructive sleep apnea) 07/18/2023 Osteoporosis ([facility]) 07/18/2023 Seasonal allergies 07/18/2023 Tobacco user 07/18/2023 Type 2 diabetes mellitus with complication, without long-term current use of insulin ([facility]) 07/18/2023 Urge and stress [...] (clean catch) Hemoglobin A1c HLD (hyperlipidemia) ([facility]) Relevant Orders Lipid panel Comprehensive metabolic panel Anxiety and depression ([facility]) Stable at this time Encounter for screening mammogram for malignant neoplasm of breast Relevant Orders Bilateral screening mammogram COVID Recent hospitalization for this, appears to be doing quite well Open wound No s/s infection, recommend using diaper barrier ointment on this documented in this encounter [facility] 06-07-2022 Note PROCEDURE: XR FOOT L T [...] by: ROBERT HART Date: 2022-06-07 08:43 [facility] Evaluation note Diagnosis Primary hypertension (CMS/HCC)- Primary [...] index (BMI) of 40.0 to 49.9 ([facility]) documented in this encounter [facility] HealthcareEvaluation note* Diagnosis Viral upper respiratory tract infection- Primary Acute upper respiratory infections of unspecified site Tobacco user Tobacco use disorder Open wound Open wound(s) (multiple) of unspecified site(s), without mention of complication Obesity (BMI 30-39.9) Type 2 diabetes mellitus without complication, with long-term current use of insulin ([facility]) documented in this encounter [facility] HealthcareEvaluation note* Diagnosis Primary hypertension ([facility])- Primary Unspecified essential hypertension Type 2 diabetes mellitus with diabetic neuropathy, with long-term current use of insulin ([facility]) Gastroesophageal reflux disease, unspecified whether esophagitis present Vitamin D deficiency Type 2 diabetes mellitus with complication, without long-term current use of insulin ([facility]) Mixed hyperlipidemia ([facility]) Mixed hyperlipidemia Encounter for screening mammogram for malignant neoplasm of breast SANTO (obstructive sleep apnea) Obstructive sleep apnea (adult) (pediatric) COPD mixed type ([facility]) Anxiety and depression ([facility]) COVID Open wound Open wound(s) (multiple) of unspecified site(s), without mention of complication Morbid obesity with body mass index (BMI) of 40.0 to 49.9 ([facility]) COPD mixed type ([facility])- Primary Dysuria Atrial fibrillation, unspecified type ([facility]) Gastroesophageal reflux disease, unspecified whether esophagitis present Type 2 diabetes mellitus with complication, without long-term current use of insulin ([facility]) Obesity (BMI 30-39.9) Tobacco user Tobacco use disorder Anxiety and depression ([facility]) Dermatitis Contact dermatitis and other eczema, due to unspecified cause Anxiety and depression ([facility])- Primary Obesity (BMI 30-39.9) Type 2 diabetes mellitus with complication, without long-term current use of insulin ([facility]) Medical non-compliance Tobacco user Tobacco use disorder Type 2 diabetes mellitus with hyperglycemia ([facility])- Primary Primary hypertension ([facility]) Unspecified essential hypertension Edema of extremities Edema Type 2 diabetes mellitus without complication, with long-term current use of insulin ([facility]) Vitamin D deficiency Tobacco user Tobacco use disorder Dizziness and giddiness Atrial fibrillation, unspecified type ([facility]) COPD mixed type ([facility]) Open wound of buttock, unspecified laterality, initial encounter- Primary Type 2 diabetes mellitus without complication, with long-term current use of insulin ([facility]) Obesity (BMI 30-39.9) Dizziness and giddiness Viral upper respiratory tract infection- Primary Acute upper respiratory infections of unspecified site Tobacco user Tobacco use disorder Open wound Open wound(s) (multiple) of unspecified site(s), without mention of complication Obesity (BMI 30-39.9) Type 2 diabetes mellitus without complication, with long-term current use of insulin ([facility]) Primary hypertension ([facility])- Primary Unspecified essential hypertension Edema of extremities Edema documented in this encounter [facility]* Diagnosis Primary hypertension ([facility])- Primary Unspecified essential hypertension Type 2 diabetes mellitus with diabetic neuropathy, with long-term current use of insulin ([facility]) Gastroesophageal reflux disease, unspecified whether esophagitis present Vitamin D deficiency Type 2 diabetes mellitus with complication, without long-term current use of insulin ([facility]) Mixed hyperlipidemia ([facility]) Mixed hyperlipidemia Encounter for screening mammogram for malignant neoplasm of breast SANTO (obstructive sleep apnea) Obstructive sleep apnea (adult) (pediatric) COPD mixed type ([facility]) Anxiety and depression ([facility]) COVID Open wound Open wound(s) (multiple) of unspecified site(s), without mention of complication Morbid obesity with body mass index (BMI) of 40.0 to 49.9 ([facility]) COPD mixed type ([facility])- Primary Dysuria Atrial fibrillation, unspecified type ([facility]) Gastroesophageal reflux disease, unspecified whether esophagitis present Type 2 diabetes mellitus with complication, without long-term current use of insulin ([facility]) Obesity (BMI 30-39.9) Tobacco user Tobacco use disorder Anxiety and depression ([facility]) Dermatitis Contact dermatitis and other eczema, due to unspecified cause Anxiety and depression ([facility])- Primary Obesity (BMI 30-39.9) Type 2 diabetes mellitus with complication, without long-term current use of insulin ([facility]) Medical non-compliance Tobacco user Tobacco use disorder Type 2 diabetes mellitus with hyperglycemia ([facility])- Primary Primary hypertension ([facility]) Unspecified essential hypertension Edema of extremities Edema Type 2 diabetes mellitus without complication, with long-term current use of insulin ([facility]) Vitamin D deficiency Tobacco user Tobacco use disorder Dizziness and giddiness Atrial fibrillation, unspecified type ([facility]) COPD mixed type ([facility]) Open wound of buttock, unspecified laterality, initial encounter- Primary Type 2 diabetes mellitus without complication, with long-term current use of insulin ([facility]) Obesity (BMI 30-39.9) Dizziness and giddiness Viral upper respiratory tract infection- Primary Acute upper respiratory infections of unspecified site Tobacco user Tobacco use disorder Open wound Open wound(s) (multiple) of unspecified site(s), without mention of complication Obesity (BMI 30-39.9) Type 2 diabetes mellitus without complication, with long-term current use of insulin ([facility]) COPD mixed type ([facility])- Primary URI, acute Acute upper respiratory infections of unspecified site documented in this encounter [facility] Healthcare[facility]* Diagnosis Primary hypertension ([facility])- Primary Unspecified essential hypertension Type 2 diabetes mellitus with diabetic neuropathy, with long-term current use of insulin ([facility]) Gastroesophageal reflux disease, unspecified whether esophagitis present Vitamin D deficiency Type 2 diabetes mellitus with complication, without long-term current use of insulin ([facility]) Mixed hyperlipidemia ([facility]) Mixed hyperlipidemia Encounter for screening mammogram for malignant neoplasm of breast SANTO (obstructive sleep apnea) Obstructive sleep apnea (adult) (pediatric) COPD mixed type ([facility]) Anxiety and depression ([facility]) COVID Open wound Open wound(s) (multiple) of unspecified site(s), without mention of complication Morbid obesity with body mass index (BMI) of 40.0 to 49.9 ([facility]) COPD mixed type (CMS/HCC)- Primary Dysuria Atrial fibrillation, unspecified type ([facility]) Gastroesophageal reflux disease, unspecified whether esophagitis present Type 2 diabetes mellitus with complication, without long-term current use of insulin ([facility]) Obesity (BMI 30-39.9) Tobacco user Tobacco use disorder Anxiety and depression ([facility]) Dermatitis Contact dermatitis and other eczema, due to unspecified cause Anxiety and depression ([facility])- Primary Obesity (BMI 30-39.9) Type 2 diabetes mellitus with complication, without long-term current use of insulin ([facility]) Medical non-compliance Tobacco user Tobacco use disorder Type 2 diabetes mellitus with hyperglycemia ([facility])- Primary Primary hypertension ([facility]) Unspecified essential hypertension Edema of extremities Edema Type 2 diabetes mellitus without complication, with long-term current use of insulin ([facility]) Vitamin D deficiency Tobacco user Tobacco use disorder Dizziness and giddiness Atrial fibrillation, unspecified type ([facility]) COPD mixed type ([facility]) Open wound of buttock, unspecified laterality, initial encounter- Primary Type 2 diabetes mellitus without complication, with long-term current use of insulin ([facility]) Obesity (BMI 30-39.9) Dizziness and giddiness Viral upper respiratory tract infection- Primary Acute upper respiratory infections of unspecified site Tobacco user Tobacco use disorder Open wound Open wound(s) (multiple) of unspecified site(s), without mention of complication Obesity (BMI 30-39.9) Type 2 diabetes mellitus without complication, with long-term current use of insulin ([facility]) COPD mixed type ([facility]) URI, acute Acute upper respiratory infections of unspecified site documented in this encounter [facility] HealthcareEvaluation note* Diagnosis Primary hypertension ([facility])- Primary Unspecified essential hypertension Type 2 diabetes mellitus with diabetic neuropathy, with long-term current use of insulin ([facility]) Gastroesophageal reflux disease, unspecified whether esophagitis present Vitamin D deficiency Type 2 diabetes mellitus with complication, without long-term current use of insulin ([facility]) Mixed hyperlipidemia ([facility]) Mixed hyperlipidemia Encounter for screening mammogram for malignant neoplasm of breast SANTO (obstructive sleep apnea) Obstructive sleep apnea (adult) (pediatric) COPD mixed type ([facility]) Anxiety and depression ([facility]) COVID Open wound Open wound(s) (multiple) of unspecified site(s), without mention of complication Morbid obesity with body mass index (BMI) of 40.0 to 49.9 ([facility]) COPD mixed type ([facility])- Primary Dysuria Atrial fibrillation, unspecified type ([facility]) Gastroesophageal reflux disease, unspecified whether esophagitis present Type 2 diabetes mellitus with complication, without long-term current use of insulin ([facility]) Obesity (BMI 30-39.9) Tobacco user Tobacco use disorder Anxiety and depression ([facility]) Dermatitis Contact dermatitis and other eczema, due to unspecified cause Anxiety and depression ([facility])- Primary Obesity (BMI 30-39.9) Type 2 diabetes mellitus with complication, without long-term current use of insulin ([facility]) Medical non-compliance Tobacco user Tobacco use disorder Type 2 diabetes mellitus with hyperglycemia ([facility])- Primary Primary hypertension ([facility]) Unspecified essential hypertension Edema of extremities Edema Type 2 diabetes mellitus without complication, with long-term current use of insulin ([facility]) Vitamin D deficiency Tobacco user Tobacco use disorder Dizziness and giddiness Atrial fibrillation, unspecified type ([facility]) COPD mixed type ([facility]) Open wound of buttock, unspecified laterality, initial encounter- Primary Type 2 diabetes mellitus without complication, with long-term current use of insulin ([facility]) Obesity (BMI 30-39.9) Dizziness and giddiness Viral upper respiratory tract infection- Primary Acute upper respiratory infections of unspecified site Tobacco user Tobacco use disorder Open wound Open wound(s) (multiple) of unspecified site(s), without mention of complication Obesity (BMI 30-39.9) Type 2 diabetes mellitus without complication, with long-term current use of insulin ([facility]) Encounter for wellness examination- Primary Osteoporosis, unspecified osteoporosis type, unspecified pathological fracture presence ([facility]) Open wound of buttock, unspecified laterality, initial encounter Type 2 diabetes mellitus without complication, with long-term current use of insulin ([facility]) Obesity (BMI 30-39.9) Tobacco user Tobacco use disorder Anxiety and depression ([facility]) Type 2 diabetes mellitus with diabetic neuropathy, with long-term current use of insulin ([facility]) COPD mixed type ([facility]) Diabetic polyneuropathy associated with type 2 diabetes mellitus ([facility]) Gastroesophageal reflux disease, unspecified whether esophagitis present Mixed hyperlipidemia ([facility]) Mixed hyperlipidemia Primary hypertension ([facility]) Unspecified essential hypertension Edema of extremities Edema Lung nodule, multiple Lymphadenopathy, generalized Vitamin D deficiency Oxygen dependent Dependence on supplemental oxygen Community acquired pneumonia, unspecified laterality documented in this encounter [facility] HealthcareEvaluation note* Diagnosis Primary hypertension ([facility])- Primary Unspecified essential hypertension Type 2 diabetes mellitus with diabetic neuropathy, with long-term current use of insulin ([facility]) Gastroesophageal reflux disease, unspecified whether esophagitis present Vitamin D deficiency Type 2 diabetes mellitus with complication, without long-term current use of insulin ([facility]) Mixed hyperlipidemia ([facility]) Mixed hyperlipidemia Encounter for screening mammogram for malignant neoplasm of breast SANTO (obstructive sleep apnea) Obstructive sleep apnea (adult) (pediatric) COPD mixed type ([facility]) Anxiety and depression ([facility]) COVID Open wound Open wound(s) (multiple) of unspecified site(s), without mention of complication Morbid obesity with body mass index (BMI) of 40.0 to 49.9 ([facility]) COPD mixed type ([facility])- Primary Dysuria Atrial fibrillation, unspecified type ([facility]) Gastroesophageal reflux disease, unspecified whether esophagitis present Type 2 diabetes mellitus with complication, without long-term current use of insulin ([facility]) Obesity (BMI 30-39.9) Tobacco user Tobacco use disorder Anxiety and depression ([facility]) Dermatitis Contact dermatitis and other eczema, due to unspecified cause Anxiety and depression ([facility])- Primary Obesity (BMI 30-39.9) Type 2 diabetes mellitus with complication, without long-term current use of insulin ([facility]) Medical non-compliance Tobacco user Tobacco use disorder Type 2 diabetes mellitus with hyperglycemia ([facility])- Primary Primary hypertension ([facility]) Unspecified essential hypertension Edema of extremities Edema Type 2 diabetes mellitus without complication, with long-term current use of insulin ([facility]) Vitamin D deficiency Tobacco user Tobacco use disorder Dizziness and giddiness Atrial fibrillation, unspecified type ([facility]) COPD mixed type ([facility]) Open wound of buttock, unspecified laterality, initial encounter- Primary Type 2 diabetes mellitus without complication, with long-term current use of insulin ([facility]) Obesity (BMI 30-39.9) Dizziness and giddiness Viral upper respiratory tract infection- Primary Acute upper respiratory infections of unspecified site Tobacco user Tobacco use disorder Open wound Open wound(s) (multiple) of unspecified site(s), without mention of complication Obesity (BMI 30-39.9) Type 2 diabetes mellitus without complication, with long-term current use of insulin ([facility]) Encounter for wellness examination- Primary Osteoporosis, unspecified osteoporosis type, unspecified pathological fracture presence ([facility]) Open wound of buttock, unspecified laterality, initial encounter Type 2 diabetes mellitus without complication, with long-term current use of insulin ([facility]) Obesity (BMI 30-39.9) Tobacco user Tobacco use disorder Anxiety and depression ([facility]) Type 2 diabetes mellitus with diabetic neuropathy, with long-term current use of insulin ([facility]) COPD mixed type ([facility]) Diabetic polyneuropathy associated with type 2 diabetes mellitus ([facility]) Gastroesophageal reflux disease, unspecified whether esophagitis present Mixed hyperlipidemia ([facility]) Mixed hyperlipidemia Primary hypertension ([facility]) Unspecified essential hypertension Edema of extremities Edema Lung nodule, multiple Lymphadenopathy, generalized Vitamin D deficiency Oxygen dependent Dependence on supplemental oxygen Community acquired pneumonia, unspecified laterality COPD mixed type ([facility])- Primary SANTO (obstructive sleep apnea) Obstructive sleep apnea (adult) (pediatric) Lung nodule, multiple Community acquired pneumonia, unspecified laterality Primary hypertension ([facility]) Unspecified essential hypertension Atrial fibrillation, unspecified type ([facility]) Type 2 diabetes mellitus without complication, with long-term current use of insulin ([facility]) Tobacco user Tobacco use disorder Needs flu shot Need for prophylactic vaccination and inoculation against influenza documented in this encounter [facility] HealthcareEvaluation note* Diagnosis Type 2 diabetes mellitus with hyperglycemia ([facility])- Primary Primary hypertension ([facility]) Unspecified essential hypertension Edema of extremities Edema Type 2 diabetes mellitus without complication, with long-term current use of insulin ([facility]) Vitamin D deficiency Tobacco user Tobacco use disorder Dizziness and giddiness Atrial fibrillation, unspecified type ([facility]) COPD mixed type ([facility]) documented in this encounter [facility] HealthcareEvaluation note* Diagnosis Primary hypertension ([facility])- Primary Unspecified essential hypertension Type 2 diabetes mellitus with diabetic neuropathy, with long-term current use of insulin ([facility]) Gastroesophageal reflux disease, unspecified whether esophagitis present Vitamin D deficiency Type 2 diabetes mellitus with complication, without long-term current use of insulin ([facility]) Mixed hyperlipidemia ([facility]) Mixed hyperlipidemia Encounter for screening mammogram for malignant neoplasm of breast SANTO (obstructive sleep apnea) Obstructive sleep apnea (adult) (pediatric) COPD mixed type ([facility]) Anxiety and depression ([facility]) COVID Open wound Open wound(s) (multiple) of unspecified site(s), without mention of complication Morbid obesity with body mass index (BMI) of 40.0 to 49.9 ([facility]) COPD mixed type ([facility])- Primary Dysuria Atrial fibrillation, unspecified type ([facility]) Gastroesophageal reflux disease, unspecified whether esophagitis present Type 2 diabetes mellitus with complication, without long-term current use of insulin ([facility]) Obesity (BMI 30-39.9) Tobacco user Tobacco use disorder Anxiety and depression ([facility]) Dermatitis Contact dermatitis and other eczema, due to unspecified cause Anxiety and depression ([facility])- Primary Obesity (BMI 30-39.9) Type 2 diabetes mellitus with complication, without long-term current use of insulin ([facility]) Medical non-compliance Tobacco user Tobacco use disorder Type 2 diabetes mellitus with hyperglycemia ([facility])- Primary Primary hypertension ([facility]) Unspecified essential hypertension Edema of extremities Edema Type 2 diabetes mellitus without complication, with long-term current use of insulin ([facility]) Vitamin D deficiency Tobacco user Tobacco use disorder Dizziness and giddiness Atrial fibrillation, unspecified type ([facility] [facility]) COPD mixed type ([facility]) Open wound of buttock, unspecified laterality, initial encounter- Primary Type 2 diabetes mellitus without complication, with long-term current use of insulin ([facility]) Obesity (BMI 30-39.9) Dizziness and giddiness Viral upper respiratory tract infection- Primary Acute upper respiratory infections of unspecified site Tobacco user Tobacco use disorder Open wound Open wound(s) (multiple) of unspecified site(s), without mention of complication Obesity (BMI 30-39.9) Type 2 diabetes mellitus without complication, with long-term current use of insulin ([facility]) Encounter for wellness examination- Primary Osteoporosis, unspecified osteoporosis type, unspecified pathological fracture presence ([facility]) Open wound of buttock, unspecified laterality, initial encounter Type 2 diabetes mellitus without complication, with long-term current use of insulin ([facility]) Obesity (BMI 30-39.9) Tobacco user Tobacco use disorder Anxiety and depression ([facility]) Type 2 diabetes mellitus with diabetic neuropathy, with long-term current use of insulin ([facility]) COPD mixed type ([facility]) Diabetic polyneuropathy associated with type 2 diabetes mellitus ([facility]) Gastroesophageal reflux disease, unspecified whether esophagitis present Mixed hyperlipidemia ([facility]) Mixed hyperlipidemia Primary hypertension ([facility]) Unspecified essential hypertension Edema of extremities Edema Lung nodule, multiple Lymphadenopathy, generalized Vitamin D deficiency Oxygen dependent Dependence on supplemental oxygen Community acquired pneumonia, unspecified laterality COPD mixed type ([facility])- Primary SANTO (obstructive sleep apnea) Obstructive sleep apnea (adult) (pediatric) Lung nodule, multiple Community acquired pneumonia, unspecified laterality Primary hypertension ([facility]) Unspecified essential hypertension Atrial fibrillation, unspecified type ([facility]) Type 2 diabetes mellitus without complication, with long-term current use of insulin ([facility]) Tobacco user Tobacco use disorder Needs flu shot Need for prophylactic vaccination and inoculation against influenza Lung nodule, multiple- Primary documented in this encounter [facility] HealthcareEvaluation note* Diagnosis Primary hypertension ([facility])- Primary Unspecified essential hypertension Type 2 diabetes mellitus with diabetic neuropathy, with long-term current use of insulin ([facility]) Gastroesophageal reflux disease, unspecified whether esophagitis present Vitamin D deficiency Type 2 diabetes mellitus with complication, without long-term current use of insulin ([facility]) Mixed hyperlipidemia ([facility]) Mixed hyperlipidemia Encounter for screening mammogram for malignant neoplasm of breast SANTO (obstructive sleep apnea) Obstructive sleep apnea (adult) (pediatric) COPD mixed type ([facility]) Anxiety and depression ([facility]) COVID Open wound Open wound(s) (multiple) of unspecified site(s), without mention of complication Morbid obesity with body mass index (BMI) of 40.0 to 49.9 ([facility]) COPD mixed type ([facility])- Primary Dysuria Atrial fibrillation, unspecified type ([facility]) Gastroesophageal reflux disease, unspecified whether esophagitis present Type 2 diabetes mellitus with complication, without long-term current use of insulin ([facility]) Obesity (BMI 30-39.9) Tobacco user Tobacco use disorder Anxiety and depression ([facility]) Dermatitis Contact dermatitis and other eczema, due to unspecified cause Anxiety and depression ([facility])- Primary Obesity (BMI 30-39.9) Type 2 diabetes mellitus with complication, without long-term current use of insulin ([facility]) Medical non-compliance Tobacco user Tobacco use disorder Type 2 diabetes mellitus with hyperglycemia ([facility])- Primary Primary hypertension ([facility]) Unspecified essential hypertension Edema of extremities Edema Type 2 diabetes mellitus without complication, with long-term current use of insulin ([facility]) Vitamin D deficiency Tobacco user Tobacco use disorder Dizziness and giddiness Atrial fibrillation, unspecified type (CMS/HCC) COPD mixed type ([facility]) Open wound of buttock, unspecified laterality, initial encounter- Primary Type 2 diabetes mellitus without complication, with long-term current use of insulin ([facility]) Obesity (BMI 30-39.9) Dizziness and giddiness Viral upper respiratory tract infection- Primary Acute upper respiratory infections of unspecified site Tobacco user Tobacco use disorder Open wound Open wound(s) (multiple) of unspecified site(s), without mention of complication Obesity (BMI 30-39.9) Type 2 diabetes mellitus without complication, with long-term current use of insulin ([facility]) Encounter for wellness examination- Primary Osteoporosis, unspecified osteoporosis type, unspecified pathological fracture presence ([facility]) Open wound of buttock, unspecified laterality, initial encounter Type 2 diabetes mellitus without complication, with long-term current use of insulin ([facility]) Obesity (BMI 30-39.9) Tobacco user Tobacco use disorder Anxiety and depression ([facility]) Type 2 diabetes mellitus with diabetic neuropathy, with long-term current use of insulin ([facility]) COPD mixed type ([facility]) Diabetic polyneuropathy associated with type 2 diabetes mellitus ([facility]) Gastroesophageal reflux disease, unspecified whether esophagitis present Mixed hyperlipidemia ([facility]) Mixed hyperlipidemia Primary hypertension ([facility]) Unspecified essential hypertension Edema of extremities Edema Lung nodule, multiple Lymphadenopathy, generalized Vitamin D deficiency Oxygen dependent Dependence on supplemental oxygen Community acquired pneumonia, unspecified laterality COPD mixed type ([facility])- Primary SANTO (obstructive sleep apnea) Obstructive sleep apnea (adult) (pediatric) Lung nodule, multiple Community acquired pneumonia, unspecified laterality Primary hypertension ([facility]) Unspecified essential hypertension Atrial fibrillation, unspecified type ([facility]) Type 2 diabetes mellitus without complication, with long-term current use of insulin ([facility]) Tobacco user Tobacco use disorder Needs flu shot Need for prophylactic vaccination and inoculation against influenza Right wrist pain- Primary Pain in joint, forearm Obesity (BMI 30-39.9) documented in this encounter [facility] HealthcareEvaluation note* Diagnosis Primary hypertension ([facility])- Primary Unspecified essential hypertension Type 2 diabetes mellitus with diabetic neuropathy, with long-term current use of insulin ([facility]) Gastroesophageal reflux disease, unspecified whether esophagitis present Vitamin D deficiency Type 2 diabetes mellitus with complication, without long-term current use of insulin ([facility]) Mixed hyperlipidemia ([facility]) Mixed hyperlipidemia Encounter for screening mammogram for malignant neoplasm of breast SANTO (obstructive sleep apnea) Obstructive sleep apnea (adult) (pediatric) COPD mixed type ([facility]) Anxiety and depression ([facility]) COVID Open wound Open wound(s) (multiple) of unspecified site(s), without mention of complication Morbid obesity with body mass index (BMI) of 40.0 to 49.9 ([facility]) COPD mixed type ([facility])- Primary Dysuria Atrial fibrillation, unspecified type ([facility]) Gastroesophageal reflux disease, unspecified whether esophagitis present Type 2 diabetes mellitus with complication, without long-term current use of insulin ([facility]) Obesity (BMI 30-39.9) Tobacco user Tobacco use disorder Anxiety and depression ([facility]) Dermatitis Contact dermatitis and other eczema, due to unspecified cause Anxiety and depression ([facility])- Primary Obesity (BMI 30-39.9) Type 2 diabetes mellitus with complication, without long-term current use of insulin ([facility]) Medical non-compliance Tobacco user Tobacco use disorder Type 2 diabetes mellitus with hyperglycemia ([facility])- Primary Primary hypertension ([facility]) Unspecified essential hypertension Edema of extremities Edema Type 2 diabetes mellitus without complication, with long-term current use of insulin ([facility]) Vitamin D deficiency Tobacco user Tobacco use disorder Dizziness and giddiness Atrial fibrillation, unspecified type ([facility]) COPD mixed type ([facility]) Open wound of buttock, unspecified laterality, initial encounter- Primary Type 2 diabetes mellitus without complication, with long-term current use of insulin ([facility]) Obesity (BMI 30-39.9) Dizziness and giddiness Viral upper respiratory tract infection- Primary Acute upper respiratory infections of unspecified site Tobacco user Tobacco use disorder Open wound Open wound(s) (multiple) of unspecified site(s), without mention of complication Obesity (BMI 30-39.9) Type 2 diabetes mellitus without complication, with long-term current use of insulin ([facility]) Type 2 diabetes mellitus with hyperglycemia, with long-term current use of insulin ([facility])- Primary Encounter for dietary consultation Vitamin D deficiency Primary hypertension ([facility]) Unspecified essential hypertension Hyperlipemia, mixed ([facility]) Mixed hyperlipidemia Insulin long-term use ([facility]) Encounter for long-term (current) use of insulin Class 1 obesity due to excess calories without serious comorbidity with body mass index (BMI) of 33.0 to 33.9 in adult documented in this encounter [facility] HealthcareEvaluation note* Diagnosis Open wound of buttock, unspecified laterality, initial encounter- Primary Type 2 diabetes mellitus without complication, with long-term current use of insulin ([facility]) Obesity (BMI 30-39.9) Dizziness and giddiness documented in this encounter [facility] HealthcareEvaluation note* Diagnosis Primary hypertension ([facility])- Primary Unspecified essential hypertension Type 2 diabetes mellitus with diabetic neuropathy, with long-term current use of insulin ([facility]) Gastroesophageal reflux disease, unspecified whether esophagitis present Vitamin D deficiency Type 2 diabetes mellitus with complication, without long-term current use of insulin ([facility]) Mixed hyperlipidemia ([facility]) Mixed hyperlipidemia Encounter for screening mammogram for malignant neoplasm of breast SANTO (obstructive sleep apnea) Obstructive sleep apnea (adult) (pediatric) COPD mixed type ([facility]) Anxiety and depression ([facility]) COVID Open wound Open wound(s) (multiple) of unspecified site(s), without mention of complication Morbid obesity with body mass index (BMI) of 40.0 to 49.9 ([facility]) COPD mixed type ([facility])- Primary Dysuria Atrial fibrillation, unspecified type ([facility]) Gastroesophageal reflux disease, unspecified whether esophagitis present Type 2 diabetes mellitus with complication, without long-term current use of insulin ([facility]) Obesity (BMI 30-39.9) Tobacco user Tobacco use disorder Anxiety and depression ([facility]) Dermatitis Contact dermatitis and other eczema, due to unspecified cause Anxiety and depression ([facility])- Primary Obesity (BMI 30-39.9) Type 2 diabetes mellitus with complication, without long-term current use of insulin ([facility]) Medical non-compliance Tobacco user Tobacco use disorder Type 2 diabetes mellitus with hyperglycemia ([facility])- Primary Primary hypertension ([facility]) Unspecified essential hypertension Edema of extremities Edema Type 2 diabetes mellitus without complication, with long-term current use of insulin ([facility]) Vitamin D deficiency Tobacco user Tobacco use disorder Dizziness and giddiness Atrial fibrillation, unspecified type ([facility]) COPD mixed type ([facility]) Open wound of buttock, unspecified laterality, initial encounter- Primary Type 2 diabetes mellitus without complication, with long-term current use of insulin ([facility]) Obesity (BMI 30-39.9) Dizziness and giddiness Viral upper respiratory tract infection- Primary Acute upper respiratory infections of unspecified site Tobacco user Tobacco use disorder Open wound Open wound(s) (multiple) of unspecified site(s), without mention of complication Obesity (BMI 30-39.9) Type 2 diabetes mellitus without complication, with long-term current use of insulin ([facility]) Encounter for wellness examination- Primary Osteoporosis, unspecified osteoporosis type, unspecified pathological fracture presence ([facility]) Open wound of buttock, unspecified laterality, initial encounter Type 2 diabetes mellitus without complication, with long-term current use of insulin ([facility]) Obesity (BMI 30-39.9) Tobacco user Tobacco use disorder Anxiety and depression ([facility]) Type 2 diabetes mellitus with diabetic neuropathy, with long-term current use of insulin ([facility]) COPD mixed type ([facility]) Diabetic polyneuropathy associated with type 2 diabetes mellitus ([facility]) Gastroesophageal reflux disease, unspecified whether esophagitis present Mixed hyperlipidemia ([facility]) Mixed hyperlipidemia Primary hypertension ([facility]) Unspecified essential hypertension Edema of extremities Edema Lung nodule, multiple Lymphadenopathy, generalized Vitamin D deficiency Oxygen dependent Dependence on supplemental oxygen Community acquired pneumonia, unspecified laterality COPD mixed type ([facility])- Primary SANTO (obstructive sleep apnea) Obstructive sleep apnea (adult) (pediatric) Lung nodule, multiple Community acquired pneumonia, unspecified laterality Primary hypertension ([facility]) Unspecified essential hypertension Atrial fibrillation, unspecified type ([facility]) Type 2 diabetes mellitus without complication, with long-term current use of insulin ([facility]) Tobacco user Tobacco use disorder Needs flu shot Need for prophylactic vaccination and inoculation against influenza Right wrist pain- Primary Pain in joint, forearm Obesity (BMI 30-39.9) Lung nodule, multiple- Primary COPD mixed type ([facility]) documented in this encounter [facility] HealthcareEvaluation note* Diagnosis Primary hypertension ([facility])- Primary Unspecified essential hypertension Type 2 diabetes mellitus with diabetic neuropathy, with long-term current use of insulin ([facility]) Gastroesophageal reflux disease, unspecified whether esophagitis present Vitamin D deficiency Type 2 diabetes mellitus with complication, without long-term current use of insulin ([facility]) Mixed hyperlipidemia ([facility]) Mixed hyperlipidemia Encounter for screening mammogram for malignant neoplasm of breast SANTO (obstructive sleep apnea) Obstructive sleep apnea (adult) (pediatric) COPD mixed type ([facility]) Anxiety and depression ([facility]) COVID Open wound Open wound(s) (multiple) of unspecified site(s), without mention of complication Morbid obesity with body mass index (BMI) of 40.0 to 49.9 ([facility]) COPD mixed type ([facility])- Primary Dysuria Atrial fibrillation, unspecified type ([facility]) Gastroesophageal reflux disease, unspecified whether esophagitis present Type 2 diabetes mellitus with complication, without long-term current use of insulin ([facility]) Obesity (BMI 30-39.9) Tobacco user Tobacco use disorder Anxiety and depression ([facility]) Dermatitis Contact dermatitis and other eczema, due to unspecified cause Anxiety and depression ([facility])- Primary Obesity (BMI 30-39.9) Type 2 diabetes mellitus with complication, without long-term current use of insulin ([facility]) Medical non-compliance Tobacco user Tobacco use disorder Type 2 diabetes mellitus with hyperglycemia ([facility])- Primary Primary hypertension ([facility]) Unspecified essential hypertension Edema of extremities Edema Type 2 diabetes mellitus without complication, with long-term current use of insulin ([facility]) Vitamin D deficiency Tobacco user Tobacco use disorder Dizziness and giddiness Atrial fibrillation, unspecified type ([facility]) COPD mixed type ([facility]) Open wound of buttock, unspecified laterality, initial encounter- Primary Type 2 diabetes mellitus without complication, with long-term current use of insulin ([facility]) Obesity (BMI 30-39.9) Dizziness and giddiness Viral upper respiratory tract infection- Primary Acute upper respiratory infections of unspecified site Tobacco user Tobacco use disorder Open wound Open wound(s) (multiple) of unspecified site(s), without mention of complication Obesity (BMI 30-39.9) Type 2 diabetes mellitus without complication, with long-term current use of insulin ([facility]) Encounter for wellness examination- Primary Osteoporosis, unspecified osteoporosis type, unspecified pathological fracture presence ([facility]) Open wound of buttock, unspecified laterality, initial encounter Type 2 diabetes mellitus without complication, with long-term current use of insulin ([facility]) Obesity (BMI 30-39.9) Tobacco user Tobacco use disorder Anxiety and depression ([facility]) Type 2 diabetes mellitus with diabetic neuropathy, with long-term current use of insulin ([facility]) COPD mixed type ([facility]) Diabetic polyneuropathy associated with type 2 diabetes mellitus ([facility]) Gastroesophageal reflux disease, unspecified whether esophagitis present Mixed hyperlipidemia (CMS/HCC) Mixed hyperlipidemia Primary hypertension ([facility]) Unspecified essential hypertension Edema of extremities Edema Lung nodule, multiple Lymphadenopathy, generalized Vitamin D deficiency Oxygen dependent Dependence on supplemental oxygen Community acquired pneumonia, unspecified laterality COPD mixed type (CMS/HCC)- Primary SANTO (obstructive sleep apnea) Obstructive sleep apnea (adult) (pediatric) Lung nodule, multiple Community acquired pneumonia, unspecified laterality Primary hypertension (CMS/HCC) Unspecified essential hypertension Atrial fibrillation, unspecified type ([facility]) Type 2 diabetes mellitus without complication, with long-term current use of insulin ([facility]) Tobacco user Tobacco use disorder Needs flu shot Need for prophylactic vaccination and inoculation against influenza Right wrist pain- Primary Pain in joint, forearm Obesity (BMI 30-39.9) 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 ([facility])- Primary documented in this encounter [facility]* Diagnosis Primary hypertension ([facility])- Primary Unspecified essential hypertension Type 2 diabetes mellitus with diabetic neuropathy, with long-term current use of insulin ([facility]) Gastroesophageal reflux disease, unspecified whether esophagitis present Vitamin D deficiency Type 2 diabetes mellitus with complication, without long-term current use of insulin ([facility]) Mixed hyperlipidemia (CMS/[facility]) Mixed hyperlipidemia Encounter for screening mammogram for malignant neoplasm of breast SANTO (obstructive sleep apnea) Obstructive sleep apnea (adult) (pediatric) COPD mixed type ([facility]) Anxiety and depression ([facility]) COVID Open wound Open wound(s) (multiple) of unspecified site(s), without mention of complication Morbid obesity with body mass index (BMI) of 40.0 to 49.9 ([facility]) COPD mixed type (CMS/HCC)- Primary Dysuria Atrial fibrillation, unspecified type ([facility]) Gastroesophageal reflux disease, unspecified whether esophagitis present Type 2 diabetes mellitus with complication, without long-term current use of insulin ([facility]) Obesity (BMI 30-39.9) Tobacco user Tobacco use disorder Anxiety and depression ([facility]) Dermatitis Contact dermatitis and other eczema, due to unspecified cause Anxiety and depression ([facility]/HCC)- Primary Obesity (BMI 30-39.9) Type 2 diabetes mellitus with complication, without long-term current use of insulin ([facility]) Medical non-compliance Tobacco user Tobacco use disorder Type 2 diabetes mellitus with hyperglycemia ([facility])- Primary Primary hypertension ([facility]) Unspecified essential hypertension Edema of extremities Edema Type 2 diabetes mellitus without complication, with long-term current use of insulin ([facility]) Vitamin D deficiency Tobacco user Tobacco use disorder Dizziness and giddiness Atrial fibrillation, unspecified type ([facility]) COPD mixed type ([facility]) Open wound of buttock, unspecified laterality, initial encounter- Primary Type 2 diabetes mellitus without complication, with long-term current use of insulin ([facility]) Obesity (BMI 30-39.9) Dizziness and giddiness Viral upper respiratory tract infection- Primary Acute upper respiratory infections of unspecified site Tobacco user Tobacco use disorder Open wound Open wound(s) (multiple) of unspecified site(s), without mention of complication Obesity (BMI 30-39.9) Type 2 diabetes mellitus without complication, with long-term current use of insulin ([facility]) Encounter for wellness examination- Primary Osteoporosis, unspecified osteoporosis type, unspecified pathological fracture presence ([facility]) Open wound of buttock, unspecified laterality, initial encounter Type 2 diabetes mellitus without complication, with long-term current use of insulin ([facility]) Obesity (BMI 30-39.9) Tobacco user Tobacco use disorder Anxiety and depression ([facility]) Type 2 diabetes mellitus with diabetic neuropathy, with long-term current use of insulin ([facility]) COPD mixed type ([facility]) Diabetic polyneuropathy associated with type 2 diabetes mellitus ([facility]) Gastroesophageal reflux disease, unspecified whether esophagitis present Mixed hyperlipidemia ([facility]) Mixed hyperlipidemia Primary hypertension ([facility]) Unspecified essential hypertension Edema of extremities Edema Lung nodule, multiple Lymphadenopathy, generalized Vitamin D deficiency Oxygen dependent Dependence on supplemental oxygen Community acquired pneumonia, unspecified laterality COPD mixed type ([facility])- Primary SANTO (obstructive sleep apnea) Obstructive sleep apnea (adult) (pediatric) Lung nodule, multiple Community acquired pneumonia, unspecified laterality Primary hypertension ([facility]) Unspecified essential hypertension Atrial fibrillation, unspecified type ([facility]) Type 2 diabetes mellitus without complication, with long-term current use of insulin ([facility]) Tobacco user Tobacco use disorder Needs flu shot Need for prophylactic vaccination and inoculation against influenza Right wrist pain- Primary Pain in joint, forearm Obesity (BMI 30-39.9) 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 ([facility])- Primary Oxygen dependent- Primary Dependence on supplemental oxygen COPD mixed type ([facility]) Obesity (BMI 30-39.9) COPD with acute exacerbation ([facility]) documented in this encounter [facility]* Diagnosis Primary hypertension ([facility])- Primary Unspecified essential hypertension Type 2 diabetes mellitus with diabetic neuropathy, with long-term current use of insulin ([facility]) Gastroesophageal reflux disease, unspecified whether esophagitis present Vitamin D deficiency Type 2 diabetes mellitus with complication, without long-term current use of insulin ([facility]) Mixed hyperlipidemia ([facility]) Mixed hyperlipidemia Encounter for screening mammogram for malignant neoplasm of breast SANTO (obstructive sleep apnea) Obstructive sleep apnea (adult) (pediatric) COPD mixed type ([facility]) Anxiety and depression ([facility]) COVID Open wound Open wound(s) (multiple) of unspecified site(s), without mention of complication Morbid obesity with body mass index (BMI) of 40.0 to 49.9 ([facility]) COPD mixed type ([facility])- Primary Dysuria Atrial fibrillation, unspecified type ([facility]) Gastroesophageal reflux disease, unspecified whether esophagitis present Type 2 diabetes mellitus with complication, without long-term current use of insulin ([facility]) Obesity (BMI 30-39.9) Tobacco user Tobacco use disorder Anxiety and depression ([facility]) Dermatitis Contact dermatitis and other eczema, due to unspecified cause Anxiety and depression ([facility])- Primary Obesity (BMI 30-39.9) Type 2 diabetes mellitus with complication, without long-term current use of insulin ([facility]) Medical non-compliance Tobacco user Tobacco use disorder Type 2 diabetes mellitus with hyperglycemia ([facility])- Primary Primary hypertension ([facility]) Unspecified essential hypertension Edema of extremities Edema Type 2 diabetes mellitus without complication, with long-term current use of insulin ([facility]) Vitamin D deficiency Tobacco user Tobacco use disorder Dizziness and giddiness Atrial fibrillation, unspecified type ([facility]) COPD mixed type ([facility]) Open wound of buttock, unspecified laterality, initial encounter- Primary Type 2 diabetes mellitus without complication, with long-term current use of insulin ([facility]) Obesity (BMI 30-39.9) Dizziness and giddiness Viral upper respiratory tract infection- Primary Acute upper respiratory infections of unspecified site Tobacco user Tobacco use disorder Open wound Open wound(s) (multiple) of unspecified site(s), without mention of complication Obesity (BMI 30-39.9) Type 2 diabetes mellitus without complication, with long-term current use of insulin ([facility]) Encounter for wellness examination- Primary Osteoporosis, unspecified osteoporosis type, unspecified pathological fracture presence ([facility]) Open wound of buttock, unspecified laterality, initial encounter Type 2 diabetes mellitus without complication, with long-term current use of insulin ([facility]) Obesity (BMI 30-39.9) Tobacco user Tobacco use disorder Anxiety and depression ([facility]) Type 2 diabetes mellitus with diabetic neuropathy, with long-term current use of insulin ([facility]) COPD mixed type ([facility]) Diabetic polyneuropathy associated with type 2 diabetes mellitus ([facility]) Gastroesophageal reflux disease, unspecified whether esophagitis present Mixed hyperlipidemia ([facility]) Mixed hyperlipidemia Primary hypertension ([facility]) Unspecified essential hypertension Edema of extremities Edema Lung nodule, multiple Lymphadenopathy, generalized Vitamin D deficiency Oxygen dependent Dependence on supplemental oxygen Community acquired pneumonia, unspecified laterality COPD mixed type ([facility])- Primary SANTO (obstructive sleep apnea) Obstructive sleep apnea (adult) (pediatric) Lung nodule, multiple Community acquired pneumonia, unspecified laterality Primary hypertension ([facility]) Unspecified essential hypertension Atrial fibrillation, unspecified type ([facility]) Type 2 diabetes mellitus without complication, with long-term current use of insulin ([facility]) Tobacco user Tobacco use disorder Needs flu shot Need for prophylactic vaccination and inoculation against influenza Right wrist pain- Primary Pain in joint, forearm Obesity (BMI 30-39.9) 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 ([facility])- Primary COPD with acute exacerbation ([facility])- Primary Oxygen dependent Dependence on supplemental oxygen COPD mixed type ([facility]) Obesity (BMI 30-39.9) COPD mixed type ([facility]) documented in this encounter [facility]* Diagnosis Primary hypertension ([facility])- Primary Unspecified essential hypertension Type 2 diabetes mellitus with diabetic neuropathy, with long-term current use of insulin ([facility]) Gastroesophageal reflux disease, unspecified whether esophagitis present Vitamin D deficiency Type 2 diabetes mellitus with complication, without long-term current use of insulin ([facility]) Mixed hyperlipidemia ([facility]) Mixed hyperlipidemia Encounter for screening mammogram for malignant neoplasm of breast SANTO (obstructive sleep apnea) Obstructive sleep apnea (adult) (pediatric) COPD mixed type ([facility]) Anxiety and depression ([facility]) COVID Open wound Open wound(s) (multiple) of unspecified site(s), without mention of complication Morbid obesity with body mass index (BMI) of 40.0 to 49.9 ([facility]) COPD mixed type ([facility])- Primary Dysuria Atrial fibrillation, unspecified type ([facility]) Gastroesophageal reflux disease, unspecified whether esophagitis present Type 2 diabetes mellitus with complication, without long-term current use of insulin ([facility]) Obesity (BMI 30-39.9) Tobacco user Tobacco use disorder Anxiety and depression ([facility]) Dermatitis Contact dermatitis and other eczema, due to unspecified cause Anxiety and depression ([facility])- Primary Obesity (BMI 30-39.9) Type 2 diabetes mellitus with complication, without long-term current use of insulin ([facility]) Medical non-compliance Tobacco user Tobacco use disorder Type 2 diabetes mellitus with hyperglycemia ([facility])- Primary Primary hypertension ([facility]) Unspecified essential hypertension Edema of extremities Edema Type 2 diabetes mellitus without complication, with long-term current use of insulin ([facility]) Vitamin D deficiency Tobacco user Tobacco use disorder Dizziness and giddiness Atrial fibrillation, unspecified type ([facility]) COPD mixed type ([facility]) Open wound of buttock, unspecified laterality, initial encounter- Primary Type 2 diabetes mellitus without complication, with long-term current use of insulin ([facility]) Obesity (BMI 30-39.9) Dizziness and giddiness Viral upper respiratory tract infection- Primary Acute upper respiratory infections of unspecified site Tobacco user Tobacco use disorder Open wound Open wound(s) (multiple) of unspecified site(s), without mention of complication Obesity (BMI 30-39.9) Type 2 diabetes mellitus without complication, with long-term current use of insulin ([facility]) Encounter for wellness examination- Primary Osteoporosis, unspecified osteoporosis type, unspecified pathological fracture presence ([facility]) Open wound of buttock, unspecified laterality, initial encounter Type 2 diabetes mellitus without complication, with long-term current use of insulin ([facility]) Obesity (BMI 30-39.9) Tobacco user Tobacco use disorder Anxiety and depression ([facility]) Type 2 diabetes mellitus with diabetic neuropathy, with long-term current use of insulin ([facility]) COPD mixed type ([facility]) Diabetic polyneuropathy associated with type 2 diabetes mellitus ([facility]) Gastroesophageal reflux disease, unspecified whether esophagitis present Mixed hyperlipidemia ([facility]) Mixed hyperlipidemia Primary hypertension ([facility]) Unspecified essential hypertension Edema of extremities Edema Lung nodule, multiple Lymphadenopathy, generalized Vitamin D deficiency Oxygen dependent Dependence on supplemental oxygen Community acquired pneumonia, unspecified laterality COPD mixed type ([facility])- Primary SANTO (obstructive sleep apnea) Obstructive sleep apnea (adult) (pediatric) Lung nodule, multiple Community acquired pneumonia, unspecified laterality Primary hypertension ([facility]) Unspecified essential hypertension Atrial fibrillation, unspecified type ([facility]) Type 2 diabetes mellitus without complication, with long-term current use of insulin ([facility]) Tobacco user Tobacco use disorder Needs flu shot Need for prophylactic vaccination and inoculation against influenza Right wrist pain- Primary Pain in joint, forearm Obesity (BMI 30-39.9) 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 ([facility])- Primary COPD with acute exacerbation ([facility])- Primary Oxygen dependent Dependence on supplemental oxygen COPD mixed type ([facility]) Obesity (BMI 30-39.9) COVID- Primary Type 2 diabetes mellitus with diabetic polyneuropathy ([facility]) Type 2 diabetes mellitus with hyperglycemia ([facility]) 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 classified elsewhere ([facility]) 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 ([facility]) COPD mixed type ([facility]) Paroxysmal atrial fibrillation ([facility] Atrial fibrillation Primary hypertension ([facility]) Unspecified essential hypertension Tobacco user Tobacco use disorder documented in this encounter [facility] HealthcareEvaluation note* Diagnosis Primary hypertension ([facility])- Primary Unspecified essential hypertension Type 2 diabetes mellitus with diabetic neuropathy, with long-term current use of insulin ([facility]) Gastroesophageal reflux disease, unspecified whether esophagitis present Vitamin D deficiency Type 2 diabetes mellitus with complication, without long-term current use of insulin ([facility]) Mixed hyperlipidemia ([facility]) Mixed hyperlipidemia Encounter for screening mammogram for malignant neoplasm of breast SANTO (obstructive sleep apnea) Obstructive sleep apnea (adult) (pediatric) COPD mixed type ([facility]) Anxiety and depression ([facility]) COVID Open wound Open wound(s) (multiple) of unspecified site(s), without mention of complication Morbid obesity with body mass index (BMI) of 40.0 to 49.9 ([facility]) COPD mixed type ([facility])- Primary Dysuria Atrial fibrillation, unspecified type ([facility]) Gastroesophageal reflux disease, unspecified whether esophagitis present Type 2 diabetes mellitus with complication, without long-term current use of insulin ([facility]) Obesity (BMI 30-39.9) Tobacco user Tobacco use disorder Anxiety and depression ([facility]) Dermatitis Contact dermatitis and other eczema, due to unspecified cause Anxiety and depression ([facility])- Primary Obesity (BMI 30-39.9) Type 2 diabetes mellitus with complication, without long-term current use of insulin ([facility] Medical non-compliance Tobacco user Tobacco use disorder Type 2 diabetes mellitus with hyperglycemia ([facility])- Primary Primary hypertension ([facility]) Unspecified essential hypertension Edema of extremities Edema Type 2 diabetes mellitus without complication, with long-term current use of insulin ([facility]) Vitamin D deficiency Tobacco user Tobacco use disorder Dizziness and giddiness Atrial fibrillation, unspecified type ([facility]) COPD mixed type ([facility]) Open wound of buttock, unspecified laterality, initial encounter- Primary Type 2 diabetes mellitus without complication, with long-term current use of insulin ([facility]) Obesity (BMI 30-39.9) Dizziness and giddiness Viral upper respiratory tract infection- Primary Acute upper respiratory infections of unspecified site Tobacco user Tobacco use disorder Open wound Open wound(s) (multiple) of unspecified site(s), without mention of complication Obesity (BMI 30-39.9) Type 2 diabetes mellitus without complication, with long-term current use of insulin ([facility]) Encounter for wellness examination- Primary Osteoporosis, unspecified osteoporosis type, unspecified pathological fracture presence ([facility]) Open wound of buttock, unspecified laterality, initial encounter Type 2 diabetes mellitus without complication, with long-term current use of insulin ([facility]) Obesity (BMI 30-39.9) Tobacco user Tobacco use disorder Anxiety and depression ([facility]) Type 2 diabetes mellitus with diabetic neuropathy, with long-term current use of insulin ([facility]) COPD mixed type ([facility]) Diabetic polyneuropathy associated with type 2 diabetes mellitus ([facility]) Gastroesophageal reflux disease, unspecified whether esophagitis present Mixed hyperlipidemia ([facility]) Mixed hyperlipidemia Primary hypertension ([facility]) Unspecified essential hypertension Edema of extremities Edema Lung nodule, multiple Lymphadenopathy, generalized Vitamin D deficiency Oxygen dependent Dependence on supplemental oxygen Community acquired pneumonia, unspecified laterality COPD mixed type ([facility])- Primary SANTO (obstructive sleep apnea) Obstructive sleep apnea (adult) (pediatric) Lung nodule, multiple Community acquired pneumonia, unspecified laterality Primary hypertension ([facility]) Unspecified essential hypertension Atrial fibrillation, unspecified type ([facility]) Type 2 diabetes mellitus without complication, with long-term current use of insulin ([facility]) Tobacco user Tobacco use disorder Needs flu shot Need for prophylactic vaccination and inoculation against influenza Right wrist pain- Primary Pain in joint, forearm Obesity (BMI 30-39.9) 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 ([facility]/HCC)- Primary COPD with acute exacerbation ([facility])- Primary Oxygen dependent Dependence on supplemental oxygen COPD mixed type ([facility]) Obesity (BMI 30-39.9) COVID- Primary Type 2 diabetes mellitus with diabetic polyneuropathy ([facility]) Type 2 diabetes mellitus with hyperglycemia ([facility]) 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 classified elsewhere ([facility]) 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 ([facility]) COPD mixed type ([facility]) Paroxysmal atrial fibrillation ([facility] Atrial fibrillation Primary hypertension ([facility]) Unspecified essential hypertension Tobacco user Tobacco use disorder 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 ([facility])- Primary documented in this encounter [facility]* Diagnosis Primary hypertension ([facility])- Primary Unspecified essential hypertension Type 2 diabetes mellitus with diabetic neuropathy, with long-term current use of insulin ([facility]) Gastroesophageal reflux disease, unspecified whether esophagitis present Vitamin D deficiency Type 2 diabetes mellitus with complication, without long-term current use of insulin ([facility]) Mixed hyperlipidemia ([facility]) Mixed hyperlipidemia Encounter for screening mammogram for malignant neoplasm of breast SANTO (obstructive sleep apnea) Obstructive sleep apnea (adult) (pediatric) COPD mixed type ([facility]) Anxiety and depression ([facility]) COVID Open wound Open wound(s) (multiple) of unspecified site(s), without mention of complication Morbid obesity with body mass index (BMI) of 40.0 to 49.9 ([facility]) COPD mixed type ([facility])- Primary Dysuria Atrial fibrillation, unspecified type ([facility]) Gastroesophageal reflux disease, unspecified whether esophagitis present Type 2 diabetes mellitus with complication, without long-term current use of insulin ([facility]) Obesity (BMI 30-39.9) Tobacco user Tobacco use disorder Anxiety and depression ([facility]) Dermatitis Contact dermatitis and other eczema, due to unspecified cause Anxiety and depression ([facility])- Primary Obesity (BMI 30-39.9) Type 2 diabetes mellitus with complication, without long-term current use of insulin ([facility]) Medical non-compliance Tobacco user Tobacco use disorder Type 2 diabetes mellitus with hyperglycemia ([facility])- Primary Primary hypertension ([facility]) Unspecified essential hypertension Edema of extremities Edema Type 2 diabetes mellitus without complication, with long-term current use of insulin ([facility]) Vitamin D deficiency Tobacco user Tobacco use disorder Dizziness and giddiness Atrial fibrillation, unspecified type ([facility]) COPD mixed type ([facility]) Open wound of buttock, unspecified laterality, initial encounter- Primary Type 2 diabetes mellitus without complication, with long-term current use of insulin ([facility]) Obesity (BMI 30-39.9) Dizziness and giddiness Viral upper respiratory tract infection- Primary Acute upper respiratory infections of unspecified site Tobacco user Tobacco use disorder Open wound Open wound(s) (multiple) of unspecified site(s), without mention of complication Obesity (BMI 30-39.9) Type 2 diabetes mellitus without complication, with long-term current use of insulin ([facility]) Encounter for wellness examination- Primary Osteoporosis, unspecified osteoporosis type, unspecified pathological fracture presence ([facility]) Open wound of buttock, unspecified laterality, initial encounter Type 2 diabetes mellitus without complication, with long-term current use of insulin ([facility]) Obesity (BMI 30-39.9) Tobacco user Tobacco use disorder Anxiety and depression ([facility]) Type 2 diabetes mellitus with diabetic neuropathy, with long-term current use of insulin ([facility]) COPD mixed type ([facility]) Diabetic polyneuropathy associated with type 2 diabetes mellitus ([facility]) Gastroesophageal reflux disease, unspecified whether esophagitis present Mixed hyperlipidemia ([facility]) Mixed hyperlipidemia Primary hypertension ([facility]) Unspecified essential hypertension Edema of extremities Edema Lung nodule, multiple Lymphadenopathy, generalized Vitamin D deficiency Oxygen dependent Dependence on supplemental oxygen Community acquired pneumonia, unspecified laterality COPD mixed type ([facility])- Primary SANTO (obstructive sleep apnea) Obstructive sleep apnea (adult) (pediatric) Lung nodule, multiple Community acquired pneumonia, unspecified laterality Primary hypertension ([facility]) Unspecified essential hypertension Atrial fibrillation, unspecified type ([facility]) Type 2 diabetes mellitus without complication, with long-term current use of insulin ([facility]) Tobacco user Tobacco use disorder Needs flu shot Need for prophylactic vaccination and inoculation against influenza Right wrist pain- Primary Pain in joint, forearm Obesity (BMI 30-39.9) 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 ([facility])- Primary COPD with acute exacerbation ([facility])- Primary Oxygen dependent Dependence on supplemental oxygen COPD mixed type ([facility]) Obesity (BMI 30-39.9) COVID- Primary Type 2 diabetes mellitus with diabetic polyneuropathy ([facility]) Type 2 diabetes mellitus with hyperglycemia ([facility]) 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 classified elsewhere ([facility]) correction (current) use of insulin ([facility] COPD mixed type ([facility] Paroxysmal atrial fibrillation ([facility]) Atrial fibrillation Primary hypertension ([facility]) Unspecified essential hypertension Tobacco user Tobacco use disorder Type 2 diabetes mellitus without complication, with long-term current use of insulin ([facility])- Primary documented in this encounter [facility] HealthcareEvaluation note* Diagnosis Primary hypertension ([facility])- Primary Unspecified essential hypertension Type 2 diabetes mellitus with diabetic neuropathy, with long-term current use of insulin ([facility]) Gastroesophageal reflux disease, unspecified whether esophagitis present Vitamin D deficiency Type 2 diabetes mellitus with complication, without long-term current use of insulin ([facility]) Mixed hyperlipidemia ([facility]) Mixed hyperlipidemia Encounter for screening mammogram for malignant neoplasm of breast SANTO (obstructive sleep apnea) Obstructive sleep apnea (adult) (pediatric) COPD mixed type ([facility]) Anxiety and depression ([facility]) COVID Open wound Open wound(s) (multiple) of unspecified site(s), without mention of complication Morbid obesity with body mass index (BMI) of 40.0 to 49.9 ([facility]) COPD mixed type ([facility])- Primary Dysuria Atrial fibrillation, unspecified type ([facility]) Gastroesophageal reflux disease, unspecified whether esophagitis present Type 2 diabetes mellitus with complication, without long-term current use of insulin ([facility]) Obesity (BMI 30-39.9) Tobacco user Tobacco use disorder Anxiety and depression ([facility]) Dermatitis Contact dermatitis and other eczema, due to unspecified cause Anxiety and depression ([facility])- Primary Obesity (BMI 30-39.9) Type 2 diabetes mellitus with complication, without long-term current use of insulin ([facility]) Medical non-compliance Tobacco user Tobacco use disorder Type 2 diabetes mellitus with hyperglycemia ([facility])- Primary Primary hypertension ([facility]) Unspecified essential hypertension Edema of extremities Edema Type 2 diabetes mellitus without complication, with long-term current use of insulin ([facility]) Vitamin D deficiency Tobacco user Tobacco use disorder Dizziness and giddiness Atrial fibrillation, unspecified type ([facility]) COPD mixed type ([facility]) Open wound of buttock, unspecified laterality, initial encounter- Primary Type 2 diabetes mellitus without complication, with long-term current use of insulin ([facility]) Obesity (BMI 30-39.9) Dizziness and giddiness Viral upper respiratory tract infection- Primary Acute upper respiratory infections of unspecified site Tobacco user Tobacco use disorder Open wound Open wound(s) (multiple) of unspecified site(s), without mention of complication Obesity (BMI 30-39.9) Type 2 diabetes mellitus without complication, with long-term current use of insulin ([facility]) Encounter for wellness examination- Primary Osteoporosis, unspecified osteoporosis type, unspecified pathological fracture presence ([facility]) Open wound of buttock, unspecified laterality, initial encounter Type 2 diabetes mellitus without complication, with long-term current use of insulin ([facility]) Obesity (BMI 30-39.9) Tobacco user Tobacco use disorder Anxiety and depression ([facility]) Type 2 diabetes mellitus with diabetic neuropathy, with long-term current use of insulin ([facility]) COPD mixed type ([facility]) Diabetic polyneuropathy associated with type 2 diabetes mellitus ([facility]) Gastroesophageal reflux disease, unspecified whether esophagitis present Mixed hyperlipidemia ([facility]) Mixed hyperlipidemia Primary hypertension ([facility]) Unspecified essential hypertension Edema of extremities Edema Lung nodule, multiple Lymphadenopathy, generalized Vitamin D deficiency Oxygen dependent Dependence on supplemental oxygen Community acquired pneumonia, unspecified laterality COPD mixed type ([facility])- Primary SANTO (obstructive sleep apnea) Obstructive sleep apnea (adult) (pediatric) Lung nodule, multiple Community acquired pneumonia, unspecified laterality Primary hypertension ([facility]) Unspecified essential hypertension Atrial fibrillation, unspecified type ([facility]) Type 2 diabetes mellitus without complication, with long-term current use of insulin [facility] Tobacco user Tobacco use disorder Needs flu shot Need for prophylactic vaccination and inoculation against influenza Right wrist pain- Primary Pain in joint, forearm Obesity (BMI 30-39.9) 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 ([facility])- Primary COPD with acute exacerbation ([facility])- Primary Oxygen dependent Dependence on supplemental oxygen COPD mixed type ([facility]) Obesity (BMI 30-39.9) COVID- Primary Type 2 diabetes mellitus with diabetic polyneuropathy ([facility]) Type 2 diabetes mellitus with hyperglycemia ([facility]) 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 classified elsewhere ([facility]) correction (current) use of insulin ([facility] COPD mixed type ([facility] Paroxysmal atrial fibrillation ([facility]) Atrial fibrillation Primary hypertension ([facility]) Unspecified essential hypertension Tobacco user Tobacco use disorder Diarrhea, unspecified type- Primary Type 2 diabetes mellitus with hyperglycemia, with long-term current use of insulin ([facility]) documented in this encounter [facility] HealthcareEvaluation note* Diagnosis Primary hypertension ([facility])- Primary Unspecified essential hypertension Type 2 diabetes mellitus with diabetic neuropathy, with long-term current use of insulin ([facility]) Gastroesophageal reflux disease, unspecified whether esophagitis present Vitamin D deficiency Type 2 diabetes mellitus with complication, without long-term current use of insulin ([facility]) Mixed hyperlipidemia ([facility]) Mixed hyperlipidemia Encounter for screening mammogram for malignant neoplasm of breast SANTO (obstructive sleep apnea) Obstructive sleep apnea (adult) (pediatric) COPD mixed type ([facility]) Anxiety and depression ([facility]) COVID Open wound Open wound(s) (multiple) of unspecified site(s), without mention of complication Morbid obesity with body mass index (BMI) of 40.0 to 49.9 ([facility]) COPD mixed type ([facility])- Primary Dysuria Atrial fibrillation, unspecified type ([facility]) Gastroesophageal reflux disease, unspecified whether esophagitis present Type 2 diabetes mellitus with complication, without long-term current use of insulin ([facility]) Obesity (BMI 30-39.9) Tobacco user Tobacco use disorder Anxiety and depression ([facility]) Dermatitis Contact dermatitis and other eczema, due to unspecified cause Anxiety and depression ([facility])- Primary Obesity (BMI 30-39.9) Type 2 diabetes mellitus with complication, without long-term current use of insulin ([facility]) Medical non-compliance Tobacco user Tobacco use disorder Type 2 diabetes mellitus with hyperglycemia ([facility])- Primary Primary hypertension ([facility]) Unspecified essential hypertension Edema of extremities Edema Type 2 diabetes mellitus without complication, with long-term current use of insulin ([facility]) Vitamin D deficiency Tobacco user Tobacco use disorder Dizziness and giddiness Atrial fibrillation, unspecified type ([facility]) COPD mixed type ([facility]) Open wound of buttock, unspecified laterality, initial encounter- Primary Type 2 diabetes mellitus without complication, with long-term current use of insulin ([facility]) Obesity (BMI 30-39.9) Dizziness and giddiness Viral upper respiratory tract infection- Primary Acute upper respiratory infections of unspecified site Tobacco user Tobacco use disorder Open wound Open wound(s) (multiple) of unspecified site(s), without mention of complication Obesity (BMI 30-39.9) Type 2 diabetes mellitus without complication, with long-term current use of insulin ([facility]) Encounter for wellness examination- Primary Osteoporosis, unspecified osteoporosis type, unspecified pathological fracture presence ([facility]) Open wound of buttock, unspecified laterality, initial encounter Type 2 diabetes mellitus without complication, with long-term current use of insulin ([facility]) Obesity (BMI 30-39.9) Tobacco user Tobacco use disorder Anxiety and depression ([facility]) Type 2 diabetes mellitus with diabetic neuropathy, with long-term current use of insulin ([facility]) COPD mixed type ([facility]) Diabetic polyneuropathy associated with type 2 diabetes mellitus ([facility]) Gastroesophageal reflux disease, unspecified whether esophagitis present Mixed hyperlipidemia ([facility]) Mixed hyperlipidemia Primary hypertension ([facility]) Unspecified essential hypertension Edema of extremities Edema Lung nodule, multiple Lymphadenopathy, generalized Vitamin D deficiency Oxygen dependent Dependence on supplemental oxygen Community acquired pneumonia, unspecified laterality COPD mixed type ([facility])- Primary SANTO (obstructive sleep apnea) Obstructive sleep apnea (adult) (pediatric) Lung nodule, multiple Community acquired pneumonia, unspecified laterality Primary hypertension ([facility]) Unspecified essential hypertension Atrial fibrillation, unspecified type ([facility]) Type 2 diabetes mellitus without complication, with long-term current use of insulin ([facility]) Tobacco user Tobacco use disorder Needs flu shot Need for prophylactic vaccination and inoculation against influenza Right wrist pain- Primary Pain in joint, forearm Obesity (BMI 30-39.9) 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 ([facility])- Primary COPD with acute exacerbation ([facility])- Primary Oxygen dependent Dependence on supplemental oxygen COPD mixed type ([facility]) Obesity (BMI 30-39.9) COVID- Primary Type 2 diabetes mellitus with diabetic polyneuropathy ([facility]) Type 2 diabetes mellitus with hyperglycemia ([facility]) 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 classified elsewhere ([facility]) 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 ([facility] COPD mixed type ([facility] Paroxysmal atrial fibrillation ([facility]) Atrial fibrillation Primary hypertension ([facility]) Unspecified essential hypertension Tobacco user Tobacco use disorder Diarrhea, unspecified type- Primary documented in this encounter [facility] HealthcareEvaluation note* Diagnosis Primary hypertension ([facility] Primary Unspecified essential hypertension Type 2 diabetes mellitus with diabetic neuropathy, with long-term current use of insulin ([facility]) Gastroesophageal reflux disease, unspecified whether esophagitis present Vitamin D deficiency Type 2 diabetes mellitus with complication, without long-term current use of insulin ([facility]) Mixed hyperlipidemia ([facility]) Mixed hyperlipidemia Encounter for screening mammogram for malignant neoplasm of breast SANTO (obstructive sleep apnea) Obstructive sleep apnea (adult) (pediatric) COPD mixed type ([facility]) Anxiety and depression ([facility]) COVID Open wound Open wound(s) (multiple) of unspecified site(s), without mention of complication Morbid obesity with body mass index (BMI) of 40.0 to 49.9 ([facility]) COPD mixed type ([facility])- Primary Dysuria Atrial fibrillation, unspecified type ([facility]) Gastroesophageal reflux disease, unspecified whether esophagitis present Type 2 diabetes mellitus with complication, without long-term current use of insulin ([facility]) Obesity (BMI 30-39.9) Tobacco user Tobacco use disorder Anxiety and depression ([facility]) Dermatitis Contact dermatitis and other eczema, due to unspecified cause Anxiety and depression ([facility])- Primary Obesity (BMI 30-39.9) Type 2 diabetes mellitus with complication, without long-term current use of insulin ([facility]) Medical non-compliance Tobacco user Tobacco use disorder Type 2 diabetes mellitus with hyperglycemia ([facility])- Primary Primary hypertension ([facility]) Unspecified essential hypertension Edema of extremities Edema Type 2 diabetes mellitus without complication, with long-term current use of insulin ([facility]) Vitamin D deficiency Tobacco user Tobacco use disorder Dizziness and giddiness Atrial fibrillation, unspecified type ([facility]) COPD mixed type ([facility]) Open wound of buttock, unspecified laterality, initial encounter- Primary Type 2 diabetes mellitus without complication, with long-term current use of insulin ([facility]) Obesity (BMI 30-39.9) Dizziness and giddiness Viral upper respiratory tract infection- Primary Acute upper respiratory infections of unspecified site Tobacco user Tobacco use disorder Open wound Open wound(s) (multiple) of unspecified site(s), without mention of complication Obesity (BMI 30-39.9) Type 2 diabetes mellitus without complication, with long-term current use of insulin ([facility]) Encounter for wellness examination- Primary Osteoporosis, unspecified osteoporosis type, unspecified pathological fracture presence ([facility]) Open wound of buttock, unspecified laterality, initial encounter Type 2 diabetes mellitus without complication, with long-term current use of insulin ([facility]) Obesity (BMI 30-39.9) Tobacco user Tobacco use disorder Anxiety and depression ([facility]) Type 2 diabetes mellitus with diabetic neuropathy, with long-term current use of insulin ([facility]) COPD mixed type ([facility]) Diabetic polyneuropathy associated with type 2 diabetes mellitus ([facility]) Gastroesophageal reflux disease, unspecified whether esophagitis present Mixed hyperlipidemia ([facility]) Mixed hyperlipidemia Primary hypertension ([facility]) Unspecified essential hypertension Edema of extremities Edema Lung nodule, multiple Lymphadenopathy, generalized Vitamin D deficiency Oxygen dependent Dependence on supplemental oxygen Community acquired pneumonia, unspecified laterality COPD mixed type ([facility])- Primary SANTO (obstructive sleep apnea) Obstructive sleep apnea (adult) (pediatric) Lung nodule, multiple Community acquired pneumonia, unspecified laterality Primary hypertension ([facility]) Unspecified essential hypertension Atrial fibrillation, unspecified type ([facility]) Type 2 diabetes mellitus without complication, with long-term current use of insulin ([facility]) Tobacco user Tobacco use disorder Needs flu shot Need for prophylactic vaccination and inoculation against influenza Right wrist pain- Primary Pain in joint, forearm Obesity (BMI 30-39.9) 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 ([facility])- Primary COPD with acute exacerbation ([facility])- Primary Oxygen dependent Dependence on supplemental oxygen COPD mixed type ([facility]) Obesity (BMI 30-39.9) COVID- Primary Type 2 diabetes mellitus with diabetic polyneuropathy ([facility]) Type 2 diabetes mellitus with hyperglycemia ([facility]) 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 classified elsewhere ([facility]) 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 ([facility]) COPD mixed type ([facility] Paroxysmal atrial fibrillation ([facility]) Atrial fibrillation Primary hypertension ([facility]) Unspecified essential hypertension Tobacco user Tobacco use disorder Type 2 diabetes mellitus with diabetic neuropathy, with long-term current use of insulin ([facility]) documented in this encounter [facility] HealthcareEvaluation note* Diagnosis Primary hypertension ([facility])- Primary Unspecified essential hypertension Type 2 diabetes mellitus with diabetic neuropathy, with long-term current use of insulin ([facility]) Gastroesophageal reflux disease, unspecified whether esophagitis present Vitamin D deficiency Type 2 diabetes mellitus with complication, without long-term current use of insulin ([facility]) Mixed hyperlipidemia ([facility]) Mixed hyperlipidemia Encounter for screening mammogram for malignant neoplasm of breast SANTO (obstructive sleep apnea) Obstructive sleep apnea (adult) (pediatric) COPD mixed type ([facility]) Anxiety and depression ([facility]) COVID Open wound Open wound(s) (multiple) of unspecified site(s), without mention of complication Morbid obesity with body mass index (BMI) of 40.0 to 49.9 ([facility]) COPD mixed type ([facility])- Primary Dysuria Atrial fibrillation, unspecified type ([facility]) Gastroesophageal reflux disease, unspecified whether esophagitis present Type 2 diabetes mellitus with complication, without long-term current use of insulin ([facility]) Obesity (BMI 30-39.9) Tobacco user Tobacco use disorder Anxiety and depression ([facility]) Dermatitis Contact dermatitis and other eczema, due to unspecified cause Type 2 diabetes mellitus with hyperglycemia ([facility])- Primary Primary hypertension ([facility]) Unspecified essential hypertension Edema of extremities Edema Type 2 diabetes mellitus without complication, with long-term current use of insulin ([facility]) Vitamin D deficiency Tobacco user Tobacco use disorder Dizziness and giddiness Atrial fibrillation, unspecified type ([facility]) COPD mixed type ([facility]) Open wound of buttock, unspecified laterality, initial encounter- Primary Type 2 diabetes mellitus without complication, with long-term current use of insulin ([facility]) Obesity (BMI 30-39.9) Dizziness and giddiness Viral upper respiratory tract infection- Primary Acute upper respiratory infections of unspecified site Tobacco user Tobacco use disorder Open wound Open wound(s) (multiple) of unspecified site(s), without mention of complication Obesity (BMI 30-39.9) Type 2 diabetes mellitus without complication, with long-term current use of insulin ([facility]) Encounter for wellness examination- Primary Osteoporosis, unspecified osteoporosis type, unspecified pathological fracture presence ([facility]) Open wound of buttock, unspecified laterality, initial encounter Type 2 diabetes mellitus without complication, with long-term current use of insulin ([facility]) Obesity (BMI 30-39.9) Tobacco user Tobacco use disorder Anxiety and depression ([facility]) Type 2 diabetes mellitus with diabetic neuropathy, with long-term current use of insulin ([facility]) COPD mixed type ([facility]) Diabetic polyneuropathy associated with type 2 diabetes mellitus ([facility]) Gastroesophageal reflux disease, unspecified whether esophagitis present Mixed hyperlipidemia ([facility]) Mixed hyperlipidemia Primary hypertension ([facility]) Unspecified essential hypertension Edema of extremities Edema Lung nodule, multiple Lymphadenopathy, generalized Vitamin D deficiency Oxygen dependent Dependence on supplemental oxygen Community acquired pneumonia, unspecified laterality COPD mixed type ([facility])- Primary SANTO (obstructive sleep apnea) Obstructive sleep apnea (adult) (pediatric) Lung nodule, multiple Community acquired pneumonia, unspecified laterality Primary hypertension ([facility]) Unspecified essential hypertension Atrial fibrillation, unspecified type ([facility]) Type 2 diabetes mellitus without complication, with long-term current use of insulin ([facility]) Tobacco user Tobacco use disorder Needs flu shot Need for prophylactic vaccination and inoculation against influenza Right wrist pain- Primary Pain in joint, forearm Obesity (BMI 30-39.9) 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 ([facility])- Primary COPD with acute exacerbation ([facility])- Primary Oxygen dependent Dependence on supplemental oxygen COPD mixed type ([facility] Obesity (BMI 30-39.9) COVID- Primary Type 2 diabetes mellitus with diabetic polyneuropathy ([facility]) Type 2 diabetes mellitus with hyperglycemia ([facility]) 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 classified elsewhere ([facility]) correction (current) use of insulin ([facility]) COPD mixed type ([facility] Paroxysmal atrial fibrillation ([facility]) Atrial fibrillation Primary hypertension ([facility]) Unspecified essential hypertension Tobacco user Tobacco use disorder JORDAN (generalized anxiety disorder) ([facility])- Primary Generalized anxiety disorder SANTO (obstructive sleep apnea) Obstructive sleep apnea (adult) (pediatric) Type 2 diabetes mellitus with diabetic polyneuropathy, with long-term current use of insulin ([facility]) COPD mixed type ([facility] Oxygen dependent Dependence on supplemental oxygen Paroxysmal atrial fibrillation ([facility]) Atrial fibrillation Primary hypertension ([facility]) Unspecified essential hypertension Gastroesophageal reflux disease, unspecified whether esophagitis present Obesity (BMI 30-39.9) Type 2 diabetes mellitus without complication, with long-term current use of insulin ([facility]) Anxiety and depression ([facility]) 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 ([facility]) Medical non-compliance Mild episode of recurrent major depressive disorder (HCC) ([facility]) Cigarette nicotine dependence without complication Encounter for screening mammogram for malignant neoplasm of breast Diabetic polyneuropathy associated with type 2 diabetes mellitus ([facility]) Mixed hyperlipidemia ([facility]) Mixed hyperlipidemia Edema of extremities Edema documented in this encounter [facility] HealthcareEvaluation note* Diagnosis Primary hypertension ([facility])- Primary Unspecified essential hypertension Type 2 diabetes mellitus with diabetic neuropathy, with long-term current use of insulin ([facility]) Gastroesophageal reflux disease, unspecified whether esophagitis present Vitamin D deficiency Type 2 diabetes mellitus with complication, without long-term current use of insulin ([facility]) Mixed hyperlipidemia ([facility]) Mixed hyperlipidemia Encounter for screening mammogram for malignant neoplasm of breast SANTO (obstructive sleep apnea) Obstructive sleep apnea (adult) (pediatric) COPD mixed type ([facility]) Anxiety and depression ([facility]) COVID Open wound Open wound(s) (multiple) of unspecified site(s), without mention of complication Morbid obesity with body mass index (BMI) of 40.0 to 49.9 ([facility]) COPD mixed type ([facility])- Primary Dysuria Atrial fibrillation, unspecified type ([facility]) Gastroesophageal reflux disease, unspecified whether esophagitis present Type 2 diabetes mellitus with complication, without long-term current use of insulin ([facility]) Obesity (BMI 30-39.9) Tobacco user Tobacco use disorder Anxiety and depression ([facility]) Dermatitis Contact dermatitis and other eczema, due to unspecified cause Type 2 diabetes mellitus with hyperglycemia ([facility])- Primary Primary hypertension ([facility]) Unspecified essential hypertension Edema of extremities Edema Type 2 diabetes mellitus without complication, with long-term current use of insulin ([facility]) Vitamin D deficiency Tobacco user Tobacco use disorder Dizziness and giddiness Atrial fibrillation, unspecified type ([facility]) COPD mixed type ([facility]) Open wound of buttock, unspecified laterality, initial encounter- Primary Type 2 diabetes mellitus without complication, with long-term current use of insulin ([facility]) Obesity (BMI 30-39.9) Dizziness and giddiness Viral upper respiratory tract infection- Primary Acute upper respiratory infections of unspecified site Tobacco user Tobacco use disorder Open wound Open wound(s) (multiple) of unspecified site(s), without mention of complication Obesity (BMI 30-39.9) Type 2 diabetes mellitus without complication, with long-term current use of insulin ([facility]) Encounter for wellness examination- Primary Osteoporosis, unspecified osteoporosis type, unspecified pathological fracture presence ([facility]) Open wound of buttock, unspecified laterality, initial encounter Type 2 diabetes mellitus without complication, with long-term current use of insulin ([facility]) Obesity (BMI 30-39.9) Tobacco user Tobacco use disorder Anxiety and depression ([facility]) Type 2 diabetes mellitus with diabetic neuropathy, with long-term current use of insulin ([facility]) COPD mixed type ([facility]) Diabetic polyneuropathy associated with type 2 diabetes mellitus ([facility]) Gastroesophageal reflux disease, unspecified whether esophagitis present Mixed hyperlipidemia ([facility]) Mixed hyperlipidemia Primary hypertension ([facility]) Unspecified essential hypertension Edema of extremities Edema Lung nodule, multiple Lymphadenopathy, generalized Vitamin D deficiency Oxygen dependent Dependence on supplemental oxygen Community acquired pneumonia, unspecified laterality COPD mixed type ([facility])- Primary SANTO (obstructive sleep apnea) Obstructive sleep apnea (adult) (pediatric) Lung nodule, multiple Community acquired pneumonia, unspecified laterality Primary hypertension ([facility]) Unspecified essential hypertension Atrial fibrillation, unspecified type ([facility]) Type 2 diabetes mellitus without complication, with long-term current use of insulin ([facility]) Tobacco user Tobacco use disorder Needs flu shot Need for prophylactic vaccination and inoculation against influenza Right wrist pain- Primary Pain in joint, forearm Obesity (BMI 30-39.9) 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 ([facility])- Primary COPD with acute exacerbation ([facility])- Primary Oxygen dependent Dependence on supplemental oxygen COPD mixed type ([facility]) Obesity (BMI 30-39.9) COVID- Primary Type 2 diabetes mellitus with diabetic polyneuropathy ([facility]) Type 2 diabetes mellitus with hyperglycemia ([facility]) 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 classified elsewhere ([facility]) correction (current) use of insulin ([facility] COPD mixed type ([facility] Paroxysmal atrial fibrillation ([facility] Atrial fibrillation Primary hypertension ([facility]) Unspecified essential hypertension Tobacco user Tobacco use disorder JORDAN (generalized anxiety disorder) ([facility])- Primary Generalized anxiety disorder SANTO (obstructive sleep apnea) Obstructive sleep apnea (adult) (pediatric) Type 2 diabetes mellitus with diabetic polyneuropathy, with long-term current use of insulin ([facility]) COPD mixed type ([facility]) Oxygen dependent Dependence on supplemental oxygen Paroxysmal atrial fibrillation ([facility]) Atrial fibrillation Primary hypertension ([facility]) Unspecified essential hypertension Gastroesophageal reflux disease, unspecified whether esophagitis present Obesity (BMI 30-39.9) Type 2 diabetes mellitus without complication, with long-term current use of insulin ([facility]) Anxiety and depression ([facility]) 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 ([facility]) Medical non-compliance Mild episode of recurrent major depressive disorder (HCC) ([facility]) Cigarette nicotine dependence without complication Encounter for screening mammogram for malignant neoplasm of breast Diabetic polyneuropathy associated with type 2 diabetes mellitus ([facility]) Mixed hyperlipidemia ([facility]) Mixed hyperlipidemia Edema of extremities Edema documented in this encounter [facility] HealthcareEvaluation note* Diagnosis Primary hypertension ([facility])- Primary Unspecified essential hypertension Type 2 diabetes mellitus with diabetic neuropathy, with long-term current use of insulin ([facility]) Gastroesophageal reflux disease, unspecified whether esophagitis present Vitamin D deficiency Type 2 diabetes mellitus with complication, without long-term current use of insulin ([facility]) Mixed hyperlipidemia ([facility]) Mixed hyperlipidemia Encounter for screening mammogram for malignant neoplasm of breast SANTO (obstructive sleep apnea) Obstructive sleep apnea (adult) (pediatric) COPD mixed type ([facility]) Anxiety and depression ([facility]) COVID Open wound Open wound(s) (multiple) of unspecified site(s), without mention of complication Morbid obesity with body mass index (BMI) of 40.0 to 49.9 ([facility]) COPD mixed type ([facility])- Primary Dysuria Atrial fibrillation, unspecified type ([facility]) Gastroesophageal reflux disease, unspecified whether esophagitis present Type 2 diabetes mellitus with complication, without long-term current use of insulin ([facility]) Obesity (BMI 30-39.9) Tobacco user Tobacco use disorder Anxiety and depression ([facility]) Dermatitis Contact dermatitis and other eczema, due to unspecified cause Type 2 diabetes mellitus with hyperglycemia ([facility])- Primary Primary hypertension ([facility]) Unspecified essential hypertension Edema of extremities Edema Type 2 diabetes mellitus without complication, with long-term current use of insulin ([facility]) Vitamin D deficiency Tobacco user Tobacco use disorder Dizziness and giddiness Atrial fibrillation, unspecified type ([facility]) COPD mixed type ([facility]) Open wound of buttock, unspecified laterality, initial encounter- Primary Type 2 diabetes mellitus without complication, with long-term current use of insulin ([facility]) Obesity (BMI 30-39.9) Dizziness and giddiness Viral upper respiratory tract infection- Primary Acute upper respiratory infections of unspecified site Tobacco user Tobacco use disorder Open wound Open wound(s) (multiple) of unspecified site(s), without mention of complication Obesity (BMI 30-39.9) Type 2 diabetes mellitus without complication, with long-term current use of insulin ([facility]) Encounter for wellness examination- Primary Osteoporosis, unspecified osteoporosis type, unspecified pathological fracture presence [facility] [facility] Open wound of buttock, unspecified laterality, initial encounter Type 2 diabetes mellitus without complication, with long-term current use of insulin ([facility]) Obesity (BMI 30-39.9) Tobacco user Tobacco use disorder Anxiety and depression ([facility]) Type 2 diabetes mellitus with diabetic neuropathy, with long-term current use of insulin ([facility]) COPD mixed type ([facility]) Diabetic polyneuropathy associated with type 2 diabetes mellitus ([facility]) Gastroesophageal reflux disease, unspecified whether esophagitis present Mixed hyperlipidemia ([facility]) Mixed hyperlipidemia Primary hypertension ([facility]) Unspecified essential hypertension Edema of extremities Edema Lung nodule, multiple Lymphadenopathy, generalized Vitamin D deficiency Oxygen dependent Dependence on supplemental oxygen Community acquired pneumonia, unspecified laterality COPD mixed type ([facility])- Primary SANTO (obstructive sleep apnea) Obstructive sleep apnea (adult) (pediatric) Lung nodule, multiple Community acquired pneumonia, unspecified laterality Primary hypertension ([facility]) Unspecified essential hypertension Atrial fibrillation, unspecified type ([facility]/HCC) Type 2 diabetes mellitus without complication, with long-term current use of insulin ([facility]/HCC) Tobacco user Tobacco use disorder Needs flu shot Need for prophylactic vaccination and inoculation against influenza Right wrist pain- Primary Pain in joint, forearm Obesity (BMI 30-39.9) 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 (CMS/HCC)- Primary COPD with acute exacerbation ([facility])- Primary Oxygen dependent Dependence on supplemental oxygen COPD mixed type (CMS/HCC) Obesity (BMI 30-39.9) COVID- Primary Type 2 diabetes mellitus with diabetic polyneuropathy ([facility]) Type 2 diabetes mellitus with hyperglycemia ([facility]) 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 classified elsewhere ([facility]) correction (current) use of insulin ([facility]) COPD mixed type ([facility]/HCC) Paroxysmal atrial fibrillation ([facility]/HCC) Atrial fibrillation Primary hypertension ([facility]) Unspecified essential hypertension Tobacco user Tobacco use disorder JORDAN (generalized anxiety disorder) ([facility])- Primary Generalized anxiety disorder SANTO (obstructive sleep apnea) Obstructive sleep apnea (adult) (pediatric) Type 2 diabetes mellitus with diabetic polyneuropathy, with long-term current use of insulin ([facility]) COPD mixed type ([facility]/HCC) Oxygen dependent Dependence on supplemental oxygen Paroxysmal atrial fibrillation ([facility]) Atrial fibrillation Primary hypertension ([facility]) Unspecified essential hypertension Gastroesophageal reflux disease, unspecified whether esophagitis present Obesity (BMI 30-39.9) Type 2 diabetes mellitus without complication, with long-term current use of insulin ([facility] Anxiety and depression ([facility]) correction (current) use of insulin ([facility]) Medical non-compliance Mild episode of recurrent major depressive disorder (HCC) ([facility]) Cigarette nicotine dependence without complication Encounter for screening mammogram for malignant neoplasm of breast Diabetic polyneuropathy associated with type 2 diabetes mellitus ([facility]/HCC) Mixed hyperlipidemia ([facility]) Mixed hyperlipidemia Edema of extremities Edema Type 2 diabetes mellitus with hyperglycemia, with long-term current use of insulin ([facility])- Primary Type 2 diabetes mellitus with hyperglycemia, with long-term current use of insulin ([facility]/HCC) documented in this encounter [facility] HealthcareEvaluation note* Diagnosis Primary hypertension ([facility]/HCC)- Primary Unspecified essential hypertension Type 2 diabetes mellitus with diabetic neuropathy, with long-term current use of insulin ([facility]) Gastroesophageal reflux disease, unspecified whether esophagitis present Vitamin D deficiency Type 2 diabetes mellitus with complication, without long-term current use of insulin ([facility]) Mixed hyperlipidemia ([facility]) Mixed hyperlipidemia Encounter for screening mammogram for malignant neoplasm of breast SANTO (obstructive sleep apnea) Obstructive sleep apnea (adult) (pediatric) COPD mixed type ([facility]) Anxiety and depression ([facility]) COVID Open wound Open wound(s) (multiple) of unspecified site(s), without mention of complication Morbid obesity with body mass index (BMI) of 40.0 to 49.9 ([facility]) COPD mixed type ([facility])- Primary Dysuria Atrial fibrillation, unspecified type ([facility]) Gastroesophageal reflux disease, unspecified whether esophagitis present Type 2 diabetes mellitus with complication, without long-term current use of insulin ([facility]) Obesity (BMI 30-39.9) Tobacco user Tobacco use disorder Anxiety and depression ([facility]) Dermatitis Contact dermatitis and other eczema, due to unspecified cause Type 2 diabetes mellitus with hyperglycemia ([facility])- Primary Primary hypertension ([facility]) Unspecified essential hypertension Edema of extremities Edema Type 2 diabetes mellitus without complication, with long-term current use of insulin ([facility]) Vitamin D deficiency Tobacco user Tobacco use disorder Dizziness and giddiness Atrial fibrillation, unspecified type ([facility]) COPD mixed type ([facility]) Open wound of buttock, unspecified laterality, initial encounter- Primary Type 2 diabetes mellitus without complication, with long-term current use of insulin ([facility]) Obesity (BMI 30-39.9) Dizziness and giddiness Viral upper respiratory tract infection- Primary Acute upper respiratory infections of unspecified site Tobacco user Tobacco use disorder Open wound Open wound(s) (multiple) of unspecified site(s), without mention of complication Obesity (BMI 30-39.9) Type 2 diabetes mellitus without complication, with long-term current use of insulin ([facility]) Encounter for wellness examination- Primary Osteoporosis, unspecified osteoporosis type, unspecified pathological fracture presence ([facility]) Open wound of buttock, unspecified laterality, initial encounter Type 2 diabetes mellitus without complication, with long-term current use of insulin ([facility]) Obesity (BMI 30-39.9) Tobacco user Tobacco use disorder Anxiety and depression ([facility]) Type 2 diabetes mellitus with diabetic neuropathy, with long-term current use of insulin ([facility]) COPD mixed type ([facility]) Diabetic polyneuropathy associated with type 2 diabetes mellitus ([facility]) Gastroesophageal reflux disease, unspecified whether esophagitis present Mixed hyperlipidemia ([facility]) Mixed hyperlipidemia Primary hypertension ([facility]) Unspecified essential hypertension Edema of extremities Edema Lung nodule, multiple Lymphadenopathy, generalized Vitamin D deficiency Oxygen dependent Dependence on supplemental oxygen Community acquired pneumonia, unspecified laterality COPD mixed type ([facility])- Primary SANTO (obstructive sleep apnea) Obstructive sleep apnea (adult) (pediatric) Lung nodule, multiple Community acquired pneumonia, unspecified laterality Primary hypertension ([facility]) Unspecified essential hypertension Atrial fibrillation, unspecified type ([facility]) Type 2 diabetes mellitus without complication, with long-term current use of insulin ([facility]) Tobacco user Tobacco use disorder Needs flu shot Need for prophylactic vaccination and inoculation against influenza Right wrist pain- Primary Pain in joint, forearm Obesity (BMI 30-39.9) 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 ([facility])- Primary COPD with acute exacerbation ([facility])- Primary Oxygen dependent Dependence on supplemental oxygen COPD mixed type ([facility]) Obesity (BMI 30-39.9) COVID- Primary Type 2 diabetes mellitus with diabetic polyneuropathy ([facility]) Type 2 diabetes mellitus with hyperglycemia ([facility]) 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 classified elsewhere ([facility]) correction (current) use of insulin ([facility] COPD mixed type ([facility] Paroxysmal atrial fibrillation ([facility]) Atrial fibrillation Primary hypertension ([facility]) Unspecified essential hypertension Tobacco user Tobacco use disorder JORDAN (generalized anxiety disorder) ([facility])- Primary Generalized anxiety disorder SANTO (obstructive sleep apnea) Obstructive sleep apnea (adult) (pediatric) Type 2 diabetes mellitus with diabetic polyneuropathy, with long-term current use of insulin ([facility]) COPD mixed type ([facility]) Oxygen dependent Dependence on supplemental oxygen Paroxysmal atrial fibrillation ([facility]) Atrial fibrillation Primary hypertension ([facility]) Unspecified essential hypertension Gastroesophageal reflux disease, unspecified whether esophagitis present Obesity (BMI 30-39.9) Type 2 diabetes mellitus without complication, with long-term current use of insulin ([facility]) Anxiety and depression ([facility]) correction (current) use of insulin ([facility]) Medical non-compliance Mild episode of recurrent major depressive disorder (HCC) ([facility]) Cigarette nicotine dependence without complication Encounter for screening mammogram for malignant neoplasm of breast Diabetic polyneuropathy associated with type 2 diabetes mellitus ([facility]) Mixed hyperlipidemia ([facility]) Mixed hyperlipidemia Edema of extremities Edema Hypokalemia- Primary Hypopotassemia COPD mixed type ([facility]) Osteoporosis, unspecified osteoporosis type, unspecified pathological fracture presence ([facility]) Type 2 diabetes mellitus with hyperglycemia, with long-term current use of insulin ([facility]) documented in this encounter [facility] HealthcareEvaluation note* Diagnosis Primary hypertension ([facility])- Primary Unspecified essential hypertension Type 2 diabetes mellitus with diabetic neuropathy, with long-term current use of insulin ([facility]) Gastroesophageal reflux disease, unspecified whether esophagitis present Vitamin D deficiency Type 2 diabetes mellitus with complication, without long-term current use of insulin ([facility]) Mixed hyperlipidemia ([facility]) Mixed hyperlipidemia Encounter for screening mammogram for malignant neoplasm of breast SANTO (obstructive sleep apnea) Obstructive sleep apnea (adult) (pediatric) COPD mixed type ([facility]) Anxiety and depression ([facility]) COVID Open wound Open wound(s) (multiple) of unspecified site(s), without mention of complication Morbid obesity with body mass index (BMI) of 40.0 to 49.9 ([facility]) COPD mixed type ([facility]/HCC)- Primary Dysuria Atrial fibrillation, unspecified type ([facility]) Gastroesophageal reflux disease, unspecified whether esophagitis present Type 2 diabetes mellitus with complication, without long-term current use of insulin ([facility]) Obesity (BMI 30-39.9) Tobacco user Tobacco use disorder Anxiety and depression ([facility]) Dermatitis Contact dermatitis and other eczema, due to unspecified cause Type 2 diabetes mellitus with hyperglycemia ([facility])- Primary Primary hypertension ([facility]) Unspecified essential hypertension Edema of extremities Edema Type 2 diabetes mellitus without complication, with long-term current use of insulin Vitamin D deficiency Tobacco user Tobacco use disorder Dizziness and giddiness Atrial fibrillation, unspecified type (CMS/HCC) COPD mixed type ([facility]/HCC) Open wound of buttock, unspecified laterality, [...] osteoporosis type, unspecified pathological fracture presence ([facility]) Open wound of buttock, unspecified laterality, initial encounter Type 2 diabetes mellitus without complication, with long-term current use of insulin Obesity (BMI 30-39.9) Tobacco user Tobacco use disorder Anxiety and depression ([facility]) Type 2 diabetes mellitus with diabetic neuropathy, with long-term current use of insulin ([facility]) COPD mixed type ([facility]) Diabetic polyneuropathy associated with type 2 diabetes mellitus ([facility]) Gastroesophageal reflux disease, unspecified whether esophagitis present Mixed hyperlipidemia ([facility]) Mixed hyperlipidemia Primary hypertension ([facility]) Unspecified essential hypertension Edema of extremities Edema Lung nodule, multiple Lymphadenopathy, generalized Vitamin D deficiency Oxygen dependent Dependence on supplemental oxygen Community acquired pneumonia, unspecified laterality COPD mixed type ([facility])- Primary SANTO (obstructive sleep apnea) Obstructive sleep apnea (adult) (pediatric) Lung nodule, multiple Community acquired pneumonia, unspecified laterality Primary hypertension ([facility]) Unspecified essential hypertension Atrial fibrillation, unspecified type ([facility]) Type 2 diabetes mellitus without complication, with long-term current use of insulin Tobacco user Tobacco use disorder Needs flu shot Need for prophylactic vaccination and inoculation against influenza Right wrist pain- Primary Pain in joint, forearm Obesity (BMI 30-39.9) 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 ([facility])- Primary COPD with acute exacerbation ([facility])- Primary Oxygen dependent Dependence on supplemental oxygen COPD mixed type ([facility]) Obesity (BMI 30-39.9) COVID- Primary Type 2 diabetes mellitus with diabetic polyneuropathy ([facility]) Type 2 diabetes mellitus with hyperglycemia ([facility]) 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 classified elsewhere ([facility]) correction (current) use of insulin ([facility] COPD mixed type ([facility] Paroxysmal atrial fibrillation ([facility]) Atrial fibrillation Primary hypertension ([facility]) Unspecified essential hypertension Tobacco user Tobacco use disorder JORDAN (generalized anxiety disorder) ([facility])- Primary Generalized anxiety disorder SANTO (obstructive sleep [...] current use of insulin Anxiety and depression ([facility]/HCC) 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 ([facility]) Medical non-compliance Mild episode of recurrent major depressive disorder (HCC) ([facility]) Cigarette nicotine dependence without complication Encounter for screening mammogram for malignant neoplasm of breast Diabetic polyneuropathy associated with type 2 diabetes mellitus ([facility]) Mixed hyperlipidemia ([facility]) Mixed hyperlipidemia Edema of extremities Edema COPD mixed type ([facility]/HCC) documented in this encounter [facility] HealthcareEvaluation note* Diagnosis Primary hypertension ([facility])- Primary Unspecified essential hypertension Type 2 diabetes mellitus with diabetic neuropathy, with long-term current use of insulin ([facility]) Gastroesophageal reflux disease, unspecified whether esophagitis present Vitamin D deficiency Type 2 diabetes mellitus with complication, without long-term current use of insulin ([facility]) Mixed hyperlipidemia ([facility]) Mixed hyperlipidemia Encounter for screening mammogram for malignant neoplasm of breast SANTO (obstructive sleep apnea) Obstructive sleep apnea (adult) (pediatric) COPD mixed type ([facility]/HCC) Anxiety and depression ([facility]) COVID Open wound Open wound(s) (multiple) of unspecified site(s), without mention of complication Morbid obesity with body mass index (BMI) of 40.0 to 49.9 ([facility]) COPD mixed type (CMS/HCC)- Primary Dysuria Atrial fibrillation, unspecified type ([facility]) Gastroesophageal reflux disease, unspecified whether esophagitis present Type 2 diabetes mellitus with complication, without long-term current use of insulin ([facility]) Obesity (BMI 30-39.9) Tobacco user Tobacco use disorder Anxiety and depression ([facility]CC) Dermatitis Contact dermatitis and other eczema, due to unspecified cause Type 2 diabetes mellitus with hyperglycemia ([facility])- Primary Primary hypertension ([facility]) Unspecified essential hypertension Edema of extremities Edema [...] osteoporosis type, unspecified pathological fracture presence ([facility]) Open wound of buttock, unspecified laterality, initial encounter Type 2 diabetes mellitus without complication, with long-term current use of insulin Obesity (BMI 30-39.9) Tobacco user Tobacco use disorder Anxiety and depression ([facility]) Type 2 diabetes mellitus with diabetic neuropathy, with long-term current use of insulin ([facility]) COPD mixed type ([facility]) Diabetic polyneuropathy associated with type 2 diabetes mellitus ([facility]) Gastroesophageal reflux disease, unspecified whether esophagitis present Mixed hyperlipidemia ([facility]) Mixed hyperlipidemia Primary hypertension ([facility]) Unspecified essential hypertension Edema of extremities Edema Lung nodule, multiple Lymphadenopathy, generalized Vitamin D deficiency Oxygen dependent Dependence on supplemental oxygen Community acquired pneumonia, unspecified laterality COPD mixed type ([facility])- Primary SANTO (obstructive sleep apnea) Obstructive sleep apnea (adult) (pediatric) Lung nodule, multiple Community acquired pneumonia, unspecified laterality Primary hypertension ([facility]) Unspecified essential hypertension Atrial fibrillation, unspecified type ([facility]) Type 2 diabetes mellitus without complication, with long-term current use of insulin Tobacco user Tobacco use disorder Needs flu shot Need for prophylactic vaccination and inoculation against influenza Right wrist pain- Primary Pain in joint, forearm Obesity (BMI 30-39.9) 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 ([facility])- Primary COPD with acute exacerbation ([facility])- Primary Oxygen dependent Dependence on supplemental oxygen COPD mixed type ([facility]HCC) Obesity (BMI 30-39.9) COVID- Primary Type 2 diabetes mellitus with diabetic polyneuropathy ([facility]) Type 2 diabetes mellitus with hyperglycemia ([facility]) 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 classified elsewhere ([facility]) 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 ([facility]) COPD mixed type ([facility]) Paroxysmal atrial fibrillation ([facility]) Atrial fibrillation Primary hypertension ([facility]) Unspecified essential hypertension Tobacco user Tobacco use disorder JORDAN (generalized anxiety disorder) ([facility])- Primary Generalized anxiety disorder SANTO (obstructive sleep apnea) Obstructive sleep apnea (adult) (pediatric) Type 2 diabetes mellitus with diabetic polyneuropathy, with long-term current use of insulin ([facility]) COPD mixed type ([facility] Oxygen dependent Dependence on supplemental oxygen Paroxysmal atrial fibrillation ([facility]) Atrial fibrillation Primary hypertension ([facility]) Unspecified essential hypertension Gastroesophageal reflux disease, unspecified whether esophagitis present Obesity (BMI 30-39.9) Type 2 diabetes mellitus without complication, with long-term current use of insulin Anxiety and depression ([facility]) correction (current) use of insulin ([facility]) Medical non-compliance Mild episode of recurrent major depressive disorder (HCC) ([facility]) Cigarette nicotine dependence without complication Encounter for screening mammogram for malignant neoplasm of breast Diabetic polyneuropathy associated with type 2 diabetes mellitus ([facility]) Mixed hyperlipidemia ([facility]) Mixed hyperlipidemia Edema of extremities Edema JORDAN (generalized anxiety disorder) ([facility]) Generalized anxiety disorder Mild episode of recurrent major depressive disorder (HCC) ([facility]) documented in this encounter [facility] HealthcareEvaluation note* Diagnosis Primary hypertension ([facility])- Primary Unspecified essential hypertension Type 2 diabetes mellitus with diabetic neuropathy, with long-term current use of insulin ([facility]) Gastroesophageal reflux disease, unspecified whether esophagitis present Vitamin D deficiency Type 2 diabetes mellitus with complication, without long-term current use of insulin ([facility]) Mixed hyperlipidemia ([facility]) Mixed hyperlipidemia Encounter for screening mammogram for malignant neoplasm of breast SANTO (obstructive sleep apnea) Obstructive sleep apnea (adult) (pediatric) COPD mixed type ([facility]) Anxiety and depression ([facility]) COVID Open wound Open wound(s) (multiple) of unspecified site(s), without mention of complication Morbid obesity with body mass index (BMI) of 40.0 to 49.9 ([facility]) COPD mixed type ([facility])- Primary Dysuria Atrial fibrillation, unspecified type ([facility]) Gastroesophageal reflux disease, unspecified whether esophagitis present Type 2 diabetes mellitus with complication, without long-term current use of insulin ([facility]) Obesity (BMI 30-39.9) Tobacco user Tobacco use disorder Anxiety and depression ([facility]) Dermatitis Contact dermatitis and other eczema, due to unspecified cause Type 2 diabetes mellitus with hyperglycemia ([facility])- Primary Primary hypertension ([facility]) Unspecified essential hypertension Edema of extremities Edema Type 2 diabetes mellitus without complication, with long-term current use of insulin Vitamin D deficiency Tobacco user Tobacco use disorder Dizziness and giddiness Atrial fibrillation, unspecified type ([facility]) COPD mixed type ([facility]) Open wound of buttock, unspecified laterality, initial [...] osteoporosis type, unspecified pathological fracture presence ([facility]) Open wound of buttock, unspecified laterality, initial encounter Type 2 diabetes mellitus without complication, with long-term current use of insulin Obesity (BMI 30-39.9) Tobacco user Tobacco use disorder Anxiety and depression ([facility]) Type 2 diabetes mellitus with diabetic neuropathy, with long-term current use of insulin ([facility]) COPD mixed type ([facility]) Diabetic polyneuropathy associated with type 2 diabetes mellitus ([facility]) Gastroesophageal reflux disease, unspecified whether esophagitis present Mixed hyperlipidemia ([facility]) Mixed hyperlipidemia Primary hypertension ([facility]) Unspecified essential hypertension Edema of extremities Edema Lung nodule, multiple Lymphadenopathy, generalized Vitamin D deficiency Oxygen dependent Dependence on supplemental oxygen Community acquired pneumonia, unspecified laterality COPD mixed type ([facility])- Primary SANTO (obstructive sleep apnea) Obstructive sleep apnea (adult) (pediatric) Lung nodule, multiple Community acquired pneumonia, unspecified laterality Primary hypertension ([facility]) Unspecified essential hypertension Atrial fibrillation, unspecified type ([facility]) Type 2 diabetes mellitus without complication, with long-term current use of insulin Tobacco user Tobacco use disorder Needs flu shot Need for prophylactic vaccination and inoculation against influenza Right wrist pain- Primary Pain in joint, forearm Obesity (BMI 30-39.9) 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 ([facility])- Primary COPD with acute exacerbation ([facility])- Primary Oxygen dependent Dependence on supplemental oxygen COPD mixed type ([facility]) Obesity (BMI 30-39.9) COVID- Primary Type 2 diabetes mellitus with diabetic polyneuropathy ([facility]) Type 2 diabetes mellitus with hyperglycemia ([facility]) 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 classified elsewhere ([facility]) 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 ([facility]) COPD mixed type ([facility]) Paroxysmal atrial fibrillation ([facility]) Atrial fibrillation Primary hypertension ([facility]) Unspecified essential hypertension Tobacco user Tobacco use disorder JORDAN (generalized anxiety disorder) ([facility])- Primary Generalized anxiety disorder SANTO (obstructive sleep apnea) Obstructive sleep apnea (adult) (pediatric) Type 2 diabetes mellitus with diabetic polyneuropathy, with long-term current use of insulin ([facility]) COPD mixed type ([facility]) Oxygen dependent Dependence on supplemental oxygen Paroxysmal atrial fibrillation ([facility]) Atrial fibrillation Primary hypertension ([facility]) Unspecified essential hypertension Gastroesophageal reflux disease, unspecified whether esophagitis present Obesity (BMI 30-39.9) Type 2 diabetes mellitus without complication, with long-term current use of insulin Anxiety and depression ([facility]) correction (current) use of insulin ([facility]) Medical non-compliance Mild episode of recurrent major depressive disorder (HCC) ([facility]) Cigarette nicotine dependence without complication Encounter for screening mammogram for malignant neoplasm of breast Diabetic polyneuropathy associated with type 2 diabetes mellitus ([facility]) Mixed hyperlipidemia ([facility]) Mixed hyperlipidemia Edema of extremities Edema Abscess of left groin- Primary documented in this encounter [facility] HealthcareEvaluation note* Diagnosis Primary hypertension ([facility])- Primary Unspecified essential hypertension Type 2 diabetes mellitus with diabetic neuropathy, with long-term current use of insulin ([facility]) Gastroesophageal reflux disease, unspecified whether esophagitis present Vitamin D deficiency Type 2 diabetes mellitus with complication, without long-term current use of insulin ([facility]) Mixed hyperlipidemia ([facility]) Mixed hyperlipidemia Encounter for screening mammogram for malignant neoplasm of breast SANTO (obstructive sleep apnea) Obstructive sleep apnea (adult) (pediatric) COPD mixed type ([facility]) Anxiety and depression ([facility]) COVID Open wound Open wound(s) (multiple) of unspecified site(s), without mention of complication Morbid obesity with body mass index (BMI) of 40.0 to 49.9 ([facility]) COPD mixed type ([facility])- Primary Dysuria Atrial fibrillation, unspecified type ([facility]) Gastroesophageal reflux disease, unspecified whether esophagitis present Type 2 diabetes mellitus with complication, without long-term current use of insulin ([facility]) Obesity (BMI 30-39.9) Tobacco user Tobacco use disorder Anxiety and depression ([facility]) Dermatitis Contact dermatitis and other eczema, due to unspecified cause Type 2 diabetes mellitus with hyperglycemia ([facility])- Primary Primary hypertension ([facility]) Unspecified essential hypertension Edema of extremities Edema Type 2 diabetes mellitus without complication, with long-term current use of insulin Vitamin D deficiency Tobacco user Tobacco use disorder Dizziness and giddiness Atrial fibrillation, unspecified type ([facility]) COPD mixed type ([facility]) Open wound of buttock, unspecified laterality, initial [...] osteoporosis type, unspecified pathological fracture presence ([facility]) Open wound of buttock, unspecified laterality, initial encounter Type 2 diabetes mellitus without complication, with long-term current use of insulin Obesity (BMI 30-39.9) Tobacco user Tobacco use disorder Anxiety and depression ([facility]) Type 2 diabetes mellitus with diabetic neuropathy, with long-term current use of insulin ([facility]) COPD mixed type ([facility]) Diabetic polyneuropathy associated with type 2 diabetes mellitus ([facility]) Gastroesophageal reflux disease, unspecified whether esophagitis present Mixed hyperlipidemia ([facility]) Mixed hyperlipidemia Primary hypertension ([facility]) Unspecified essential hypertension Edema of extremities Edema Lung nodule, multiple Lymphadenopathy, generalized Vitamin D deficiency Oxygen dependent Dependence on supplemental oxygen Community acquired pneumonia, unspecified laterality COPD mixed type ([facility])- Primary SANTO (obstructive sleep apnea) Obstructive sleep apnea (adult) (pediatric) Lung nodule, multiple Community acquired pneumonia, unspecified laterality Primary hypertension ([facility]) Unspecified essential hypertension Atrial fibrillation, unspecified type ([facility]) Type 2 diabetes mellitus without complication, with long-term current use of insulin Tobacco user Tobacco use disorder Needs flu shot Need for prophylactic vaccination and inoculation against influenza Right wrist pain- Primary Pain in joint, forearm Obesity (BMI 30-39.9) 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 ([facility])- Primary COPD with acute exacerbation ([facility])- Primary Oxygen dependent Dependence on supplemental oxygen COPD mixed type ([facility]) Obesity (BMI 30-39.9) COVID- Primary Type 2 diabetes mellitus with diabetic polyneuropathy ([facility]) Type 2 diabetes mellitus with hyperglycemia ([facility]) 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 classified elsewhere ([facility]) correction (current) use of insulin ([facility]) COPD mixed type ([facility]) Paroxysmal atrial fibrillation ([facility] Atrial fibrillation Primary hypertension ([facility]) Unspecified essential hypertension Tobacco user Tobacco use disorder JORDAN (generalized anxiety disorder) ([facility])- Primary Generalized anxiety disorder SANTO (obstructive sleep apnea) Obstructive sleep apnea (adult) (pediatric) Type 2 diabetes mellitus with diabetic polyneuropathy, with long-term current use of insulin ([facility]) COPD mixed type ([facility]) Oxygen dependent Dependence on supplemental oxygen Paroxysmal atrial fibrillation ([facility]) Atrial fibrillation Primary hypertension ([facility]) Unspecified essential hypertension Gastroesophageal reflux disease, unspecified whether esophagitis present Obesity (BMI 30-39.9) Type 2 diabetes mellitus without complication, with long-term current use of insulin Anxiety and depression ([facility]) 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 ([facility]) Medical non-compliance Mild episode of recurrent major depressive disorder (HCC) ([facility]) Cigarette nicotine dependence without complication Encounter for screening mammogram for malignant neoplasm of breast Diabetic polyneuropathy associated with type 2 diabetes mellitus ([facility]) Mixed hyperlipidemia ([facility] Mixed hyperlipidemia Edema of extremities Edema Abscess of left groin documented in this encounter [facility] HealthcareEvaluation note* Diagnosis Primary hypertension ([facility])- Primary Unspecified essential hypertension Type 2 diabetes mellitus with diabetic neuropathy, with long-term current use of insulin ([facility]) Gastroesophageal reflux disease, unspecified whether esophagitis present Vitamin D deficiency Type 2 diabetes mellitus with complication, without long-term current use of insulin ([facility]) Mixed hyperlipidemia ([facility]) Mixed hyperlipidemia Encounter for screening mammogram for malignant neoplasm of breast SANTO (obstructive sleep apnea) Obstructive sleep apnea (adult) (pediatric) COPD mixed type ([facility]) Anxiety and depression ([facility]) COVID Open wound Open wound(s) (multiple) of unspecified site(s), without mention of complication Morbid obesity with body mass index (BMI) of 40.0 to 49.9 ([facility]) COPD mixed type ([facility])- Primary Dysuria Atrial fibrillation, unspecified type ([facility]) Gastroesophageal reflux disease, unspecified whether esophagitis present Type 2 diabetes mellitus with complication, without long-term current use of insulin ([facility]) Obesity (BMI 30-39.9) Tobacco user Tobacco use disorder Anxiety and depression ([facility]) Dermatitis Contact dermatitis and other eczema, due to unspecified cause Type 2 diabetes mellitus with hyperglycemia ([facility])- Primary Primary hypertension ([facility]) Unspecified essential hypertension Edema of extremities Edema Type 2 diabetes mellitus without complication, with long-term current use of insulin Vitamin D deficiency Tobacco user Tobacco use disorder Dizziness and giddiness Atrial fibrillation, unspecified type ([facility]) COPD mixed type ([facility]) Open wound of buttock, unspecified laterality, initial [...] osteoporosis type, unspecified pathological fracture presence ([facility]) Open wound of buttock, unspecified laterality, initial encounter Type 2 diabetes mellitus without complication, with long-term current use of insulin Obesity (BMI 30-39.9) Tobacco user Tobacco use disorder Anxiety and depression ([facility]) Type 2 diabetes mellitus with diabetic neuropathy, with long-term current use of insulin ([facility]) COPD mixed type ([facility]) Diabetic polyneuropathy associated with type 2 diabetes mellitus ([facility]) Gastroesophageal reflux disease, unspecified whether esophagitis present Mixed hyperlipidemia ([facility]) Mixed hyperlipidemia Primary hypertension ([facility]) Unspecified essential hypertension Edema of extremities Edema Lung nodule, multiple Lymphadenopathy, generalized Vitamin D deficiency Oxygen dependent Dependence on supplemental oxygen Community acquired pneumonia, unspecified laterality COPD mixed type ([facility])- Primary SANTO (obstructive sleep apnea) Obstructive sleep apnea (adult) (pediatric) Lung nodule, multiple Community acquired pneumonia, unspecified laterality Primary hypertension ([facility]) Unspecified essential hypertension Atrial fibrillation, unspecified type ([facility]) Type 2 diabetes mellitus without complication, with long-term current use of insulin Tobacco user Tobacco use disorder Needs flu shot Need for prophylactic vaccination and inoculation against influenza Right wrist pain- Primary Pain in joint, forearm Obesity (BMI 30-39.9) 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 ([facility])- Primary COPD with acute exacerbation ([facility])- Primary Oxygen dependent Dependence on supplemental oxygen COPD mixed type ([facility]) Obesity (BMI 30-39.9) COVID- Primary Type 2 diabetes mellitus with diabetic polyneuropathy ([facility]) Type 2 diabetes mellitus with hyperglycemia ([facility]) 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 classified elsewhere ([facility]) correction (current) use of insulin ([facility]) COPD mixed type ([facility]) Paroxysmal atrial fibrillation ([facility] Atrial fibrillation Primary hypertension ([facility]) Unspecified essential hypertension Tobacco user Tobacco use disorder JORDAN (generalized anxiety disorder) ([facility])- Primary Generalized anxiety disorder SANTO (obstructive sleep apnea) Obstructive sleep apnea (adult) (pediatric) Type 2 diabetes mellitus with diabetic polyneuropathy, with long-term current use of insulin ([facility]) COPD mixed type ([facility]) Oxygen dependent Dependence on supplemental oxygen Paroxysmal atrial fibrillation ([facility]) Atrial fibrillation Primary hypertension ([facility]) Unspecified essential hypertension Gastroesophageal reflux disease, unspecified whether esophagitis present Obesity (BMI 30-39.9) Type 2 diabetes mellitus without complication, with long-term current use of insulin Anxiety and depression ([facility]) correction (current) use of insulin ([facility]) Medical non-compliance Mild episode of recurrent major depressive disorder (HCC) ([facility]) Cigarette nicotine dependence without complication Encounter for screening mammogram for malignant neoplasm of breast Diabetic polyneuropathy associated with type 2 diabetes mellitus ([facility]) Mixed hyperlipidemia (CMS/HCC) Mixed hyperlipidemia Edema of extremities Edema Abscess of left groin- Primary Primary hypertension ([facility]) Unspecified essential hypertension Type 2 diabetes mellitus without complication, with long-term current use of insulin Cigarette nicotine dependence without complication Encounter for screening mammogram for malignant neoplasm of breast Gill rash of groin Mild episode of recurrent major depressive disorder (HCC) ([facility]) documented in this encounter [facility] HealthcareEvaluation note* [facility] Primary hypertension [facility] [facility] Primary Unspecified essential hypertension Type 2 diabetes mellitus with diabetic neuropathy, with long-term current use of insulin ([facility]) Gastroesophageal reflux disease, unspecified whether esophagitis present Vitamin D deficiency Type 2 diabetes mellitus with complication, without long-term current use of insulin ([facility]) Mixed hyperlipidemia ([facility]) Mixed hyperlipidemia Encounter for screening mammogram for malignant neoplasm of breast SANTO (obstructive sleep apnea) Obstructive sleep apnea (adult) (pediatric) COPD mixed type ([facility]) Anxiety and depression ([facility]) COVID Open wound Open wound(s) (multiple) of unspecified site(s), without mention of complication Morbid obesity with body mass index (BMI) of 40.0 to 49.9 ([facility]) COPD mixed type ([facility])- Primary Dysuria Atrial fibrillation, unspecified type ([facility]) Gastroesophageal reflux disease, unspecified whether esophagitis present Type 2 diabetes mellitus with complication, without long-term current use of insulin ([facility]) Obesity (BMI 30-39.9) Tobacco user Tobacco use disorder Anxiety and depression ([facility]) Dermatitis Contact dermatitis and other eczema, due to unspecified cause Type 2 diabetes mellitus with hyperglycemia ([facility])- Primary Primary hypertension ([facility]) Unspecified essential hypertension Edema of extremities Edema Type 2 diabetes mellitus without complication, with long-term current use of insulin Vitamin D deficiency Tobacco user Tobacco use disorder Dizziness and giddiness Atrial fibrillation, unspecified type ([facility]) COPD mixed type ([facility]) Open wound of buttock, unspecified laterality, initial [...] osteoporosis type, unspecified pathological fracture presence ([facility]) Open wound of buttock, unspecified laterality, initial encounter Type 2 diabetes mellitus without complication, with long-term current use of insulin Obesity (BMI 30-39.9) Tobacco user Tobacco use disorder Anxiety and depression ([facility]) Type 2 diabetes mellitus with diabetic neuropathy, with long-term current use of insulin ([facility]) COPD mixed type ([facility]) Diabetic polyneuropathy associated with type 2 diabetes mellitus ([facility]) Gastroesophageal reflux disease, unspecified whether esophagitis present Mixed hyperlipidemia ([facility]) Mixed hyperlipidemia Primary hypertension ([facility]) Unspecified essential hypertension Edema of extremities Edema Lung nodule, multiple Lymphadenopathy, generalized Vitamin D deficiency Oxygen dependent Dependence on supplemental oxygen Community acquired pneumonia, unspecified laterality COPD mixed type ([facility])- Primary SANTO (obstructive sleep apnea) Obstructive sleep apnea (adult) (pediatric) Lung nodule, multiple Community acquired pneumonia, unspecified laterality Primary hypertension ([facility]) Unspecified essential hypertension Atrial fibrillation, unspecified type ([facility]) Type 2 diabetes mellitus without complication, with long-term current use of insulin Tobacco user Tobacco use disorder Needs flu shot Need for prophylactic vaccination and inoculation against influenza Right wrist pain- Primary Pain in joint, forearm Obesity (BMI 30-39.9) 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 ([facility])- Primary COPD with acute exacerbation ([facility])- Primary Oxygen dependent Dependence on supplemental oxygen COPD mixed type ([facility]) Obesity (BMI 30-39.9) COVID- Primary Type 2 diabetes mellitus with diabetic polyneuropathy ([facility]) Type 2 diabetes mellitus with hyperglycemia ([facility]) 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 classified elsewhere ([facility]) 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 ([facility]) COPD mixed type ([facility] Paroxysmal atrial fibrillation ([facility] Atrial fibrillation Primary hypertension ([facility]) Unspecified essential hypertension Tobacco user Tobacco use disorder JORDAN (generalized anxiety disorder) ([facility])- Primary Generalized anxiety disorder SANTO (obstructive sleep apnea) Obstructive sleep apnea (adult) (pediatric) Type 2 diabetes mellitus with diabetic polyneuropathy, with long-term current use of insulin ([facility]) COPD mixed type ([facility]) Oxygen dependent Dependence on supplemental oxygen Paroxysmal atrial fibrillation ([facility]) Atrial fibrillation Primary hypertension ([facility]) Unspecified essential hypertension Gastroesophageal reflux disease, unspecified whether esophagitis present Obesity (BMI 30-39.9) Type 2 diabetes mellitus without complication, with long-term current use of insulin Anxiety and depression ([facility]) correction (current) use of insulin ([facility] Medical non-compliance Mild episode of recurrent major depressive disorder (HCC) ([facility]) Cigarette nicotine dependence without complication Encounter for screening mammogram for malignant neoplasm of breast Diabetic polyneuropathy associated with type 2 diabetes mellitus ([facility]) Mixed hyperlipidemia ([facility]) Mixed hyperlipidemia Edema of extremities Edema Abscess of left groin- Primary Primary hypertension ([facility]) Unspecified essential hypertension Type 2 diabetes mellitus without complication, with long-term current use of insulin Cigarette nicotine dependence without complication Encounter for screening mammogram for malignant neoplasm of breast Gill rash of groin Mild episode of recurrent major depressive disorder (HCC) ([facility]) Type 2 diabetes mellitus without complication, with long-term current use of insulin- Primary Obesity (BMI 30-39.9) Abscess of left groin documented in this encounter [facility] HealthcareEvaluation [facility]* Diagnosis Primary hypertension- Primary Unspecified essential hypertension Type 2 diabetes mellitus with diabetic neuropathy, with long-term current use of insulin ([facility]) Gastroesophageal reflux disease, unspecified whether esophagitis present Vitamin D deficiency Type 2 diabetes mellitus with complication, without long-term current use of insulin ([facility]) Mixed hyperlipidemia Mixed hyperlipidemia Encounter for screening mammogram for malignant neoplasm of breast SANTO (obstructive sleep apnea) Obstructive sleep apnea (adult) (pediatric) COPD mixed type ([facility]) Anxiety and depression COVID Open wound Open wound(s) (multiple) of unspecified site(s), without mention of complication Morbid obesity with body mass index (BMI) of 40.0 to 49.9 ([facility]) COPD mixed type (HCC)- Primary Dysuria Atrial fibrillation, unspecified type (HCC) Gastroesophageal reflux disease, unspecified whether esophagitis present Type 2 diabetes mellitus with complication, without long-term current use of insulin ([facility]) Obesity (BMI 30-39.9) Tobacco user Tobacco use disorder Anxiety and depression Dermatitis Contact dermatitis and other eczema, due to unspecified cause Type 2 diabetes mellitus with hyperglycemia ([facility])- Primary Primary hypertension Unspecified essential hypertension Edema of extremities Edema Type 2 diabetes mellitus without complication, with long-term current use of insulin ([facility]) Vitamin D deficiency Tobacco user Tobacco use disorder Dizziness and giddiness Atrial fibrillation, unspecified type (HCC) COPD mixed type (HCC) Open wound of buttock, unspecified laterality, initial encounter- Primary Type 2 diabetes mellitus without complication, with long-term current use of insulin ([facility]) Obesity (BMI 30-39.9) Dizziness and giddiness Viral upper respiratory tract infection- Primary Acute upper respiratory infections of unspecified site Tobacco user Tobacco use disorder Open wound Open wound(s) (multiple) of unspecified site(s), without mention of complication Obesity (BMI 30-39.9) Type 2 diabetes mellitus without complication, with long-term current use of insulin ([facility]) Encounter for wellness examination- Primary Osteoporosis, unspecified osteoporosis type, unspecified pathological fracture presence Open wound of buttock, unspecified laterality, initial encounter Type 2 diabetes mellitus without complication, with long-term current use of insulin ([facility]) Obesity (BMI 30-39.9) Tobacco user Tobacco use disorder Anxiety and depression Type 2 diabetes mellitus with diabetic neuropathy, with long-term current use of insulin ([facility]) COPD mixed type (HCC) Diabetic polyneuropathy associated with type 2 diabetes mellitus ([facility]) Gastroesophageal reflux disease, unspecified whether esophagitis present [...] with long-term current use of insulin ([facility]) Tobacco user Tobacco use disorder Needs flu shot Need for prophylactic vaccination and inoculation against influenza Right wrist pain- Primary Pain in joint, forearm Obesity (BMI 30-39.9) 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 ([facility])- Primary COPD with acute exacerbation ([facility])- Primary Oxygen dependent Dependence on supplemental oxygen COPD mixed type (HCC) Obesity (BMI 30-39.9) COVID- Primary Type 2 diabetes mellitus with diabetic polyneuropathy ([facility]) Type 2 diabetes mellitus with hyperglycemia ([facility]) 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 classified elsewhere ([facility]) 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 (HCC) COPD mixed type (HCC) Paroxysmal atrial fibrillation (HCC) Atrial fibrillation Primary hypertension Unspecified essential hypertension Tobacco user Tobacco use disorder JORDAN (generalized anxiety disorder)- Primary Generalized anxiety disorder SANTO (obstructive sleep apnea) Obstructive sleep apnea (adult) (pediatric) Type 2 diabetes mellitus with diabetic polyneuropathy, with long-term current use of insulin ([facility]) COPD mixed type (HCC) Oxygen dependent Dependence on supplemental oxygen Paroxysmal atrial fibrillation (HCC) Atrial fibrillation Primary hypertension Unspecified essential hypertension Gastroesophageal reflux disease, unspecified whether esophagitis present Obesity (BMI 30-39.9) Type 2 diabetes mellitus without complication, with long-term current use of insulin ([facility]) Anxiety and depression 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 ([facility]) Medical non-compliance Mild episode of recurrent major depressive disorder Cigarette nicotine dependence without complication Encounter for screening mammogram for malignant neoplasm of breast Diabetic polyneuropathy associated with type 2 diabetes mellitus ([facility]) Mixed hyperlipidemia Mixed hyperlipidemia Edema of extremities Edema Abscess of left groin- Primary Primary hypertension Unspecified essential hypertension Type 2 diabetes mellitus without complication, with long-term current use of insulin ([facility]) Cigarette nicotine dependence without complication Encounter for screening mammogram for malignant neoplasm of breast Gill rash of groin Mild episode of recurrent major depressive disorder COPD mixed type ([facility]) documented in this encounter [facility] HealthcareEvaluation note* Diagnosis Primary hypertension- Primary Unspecified essential hypertension Type 2 diabetes mellitus with diabetic neuropathy, with long-term current use of insulin ([facility]) Gastroesophageal reflux disease, unspecified whether esophagitis present Vitamin D deficiency Type 2 diabetes mellitus with complication, without long-term current use of insulin ([facility]) Mixed hyperlipidemia Mixed hyperlipidemia Encounter for screening mammogram for malignant neoplasm of breast SANTO (obstructive sleep apnea) Obstructive sleep apnea (adult) (pediatric) COPD mixed type (HCC) Anxiety and depression COVID Open wound Open wound(s) (multiple) of unspecified site(s), without mention of complication Morbid obesity with body mass index (BMI) of 40.0 to 49.9 ([facility]) COPD mixed type (HCC)- Primary Dysuria Atrial fibrillation, unspecified type (HCC) Gastroesophageal reflux disease, unspecified whether esophagitis present Type 2 diabetes mellitus with complication, without long-term current use of insulin ([facility]) Obesity (BMI 30-39.9) Tobacco user Tobacco use [...] with long-term current use of insulin ([facility]) Obesity (BMI 30-39.9) Dizziness and giddiness Viral upper respiratory tract infection- Primary Acute upper respiratory infections of unspecified site Tobacco user Tobacco use disorder Open wound Open wound(s) (multiple) of unspecified site(s), without mention of complication Obesity (BMI 30-39.9) Type 2 diabetes mellitus without complication, with long-term current use of insulin ([facility]) Encounter for wellness examination- Primary Osteoporosis, unspecified osteoporosis type, unspecified pathological fracture presence Open wound of buttock, unspecified laterality, initial encounter Type 2 diabetes mellitus without complication, with long-term current use of insulin ([facility]) Obesity (BMI 30-39.9) Tobacco user Tobacco use [...] 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 classified elsewhere ([facility]) 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 ([facility]) COPD mixed type (HCC) Paroxysmal atrial fibrillation (HCC) Atrial fibrillation Primary hypertension Unspecified essential hypertension Tobacco user Tobacco use disorder JORDAN (generalized anxiety disorder)- Primary Generalized anxiety disorder SANTO (obstructive sleep apnea) Obstructive sleep apnea (adult) (pediatric) Type 2 diabetes mellitus with diabetic polyneuropathy, with long-term current use of insulin ([facility]) COPD mixed type ([facility]) Oxygen dependent Dependence on supplemental oxygen Paroxysmal atrial fibrillation ([facility]) Atrial fibrillation Primary hypertension Unspecified essential hypertension Gastroesophageal reflux disease, unspecified whether esophagitis present Obesity (BMI 30-39.9) Type 2 diabetes mellitus without complication, with long-term current use of insulin ([facility]) Anxiety and depression correction (current) use of insulin ([facility]) Medical non-compliance Mild episode of recurrent major depressive disorder Cigarette nicotine dependence without complication Encounter for screening mammogram for malignant neoplasm of breast Diabetic polyneuropathy associated with type 2 diabetes mellitus ([facility]) Mixed hyperlipidemia Mixed hyperlipidemia Edema of extremities Edema Abscess of left groin- Primary Primary hypertension Unspecified essential hypertension Type 2 diabetes mellitus without complication, with long-term current use of insulin ([facility]) Cigarette nicotine dependence without complication Encounter for screening mammogram for malignant neoplasm of breast Gill rash of groin Mild episode of recurrent major depressive disorder Primary hypertension- Primary Unspecified essential hypertension documented in this encounter [facility] HealthcareEvaluation note* Diagnosis Primary hypertension- Primary Unspecified essential hypertension Type 2 diabetes mellitus with diabetic neuropathy, with long-term current use of insulin ([facility]) Gastroesophageal reflux disease, unspecified whether esophagitis present Vitamin D deficiency Type 2 diabetes mellitus with complication, without long-term current use of insulin ([facility]) Mixed hyperlipidemia Mixed hyperlipidemia Encounter for screening mammogram for malignant neoplasm of breast SANTO (obstructive sleep apnea) Obstructive sleep apnea (adult) (pediatric) COPD mixed type ([facility]) Anxiety and depression COVID Open wound Open wound(s) (multiple) of unspecified site(s), without mention of complication Morbid obesity with body mass index (BMI) of 40.0 to 49.9 ([facility]) COPD mixed type (HCC)- Primary Dysuria Atrial fibrillation, unspecified type ([facility]) Gastroesophageal reflux disease, unspecified whether esophagitis present Type 2 diabetes mellitus with complication, without long-term current use of insulin ([facility]) Obesity (BMI 30-39.9) Tobacco user Tobacco use [...] with long-term current use of insulin ([facility]) Encounter for wellness examination- Primary Osteoporosis, unspecified osteoporosis type, unspecified pathological fracture presence Open wound of buttock, unspecified laterality, initial encounter Type 2 diabetes mellitus without complication, with long-term current use of insulin ([facility]) Obesity (BMI 30-39.9) Tobacco user Tobacco use [...] with long-term current use of insulin ([facility]) Tobacco user Tobacco use disorder Needs flu [...] 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 classified elsewhere ([facility]) 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 (HCC) COPD mixed type (HCC) Paroxysmal atrial fibrillation (HCC) Atrial fibrillation Primary hypertension Unspecified essential hypertension Tobacco user Tobacco use disorder JORDAN (generalized anxiety disorder)- Primary Generalized anxiety disorder SANTO (obstructive sleep apnea) Obstructive sleep apnea (adult) (pediatric) Type 2 diabetes mellitus with diabetic polyneuropathy, with long-term current use of insulin ([facility]) COPD mixed type (HCC) Oxygen dependent Dependence on supplemental oxygen Paroxysmal atrial fibrillation (HCC) Atrial fibrillation Primary hypertension Unspecified essential hypertension Gastroesophageal reflux disease, unspecified whether esophagitis present Obesity (BMI 30-39.9) Type 2 diabetes mellitus without complication, with long-term current use of insulin ([facility]) Anxiety and depression 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 ([facility]) Medical non-compliance Mild episode of recurrent major depressive disorder Cigarette nicotine dependence without complication Encounter for screening mammogram for malignant neoplasm of breast Diabetic polyneuropathy associated with type 2 diabetes mellitus ([facility]) Mixed hyperlipidemia Mixed hyperlipidemia Edema of extremities Edema Abscess of left groin- Primary Primary hypertension Unspecified essential hypertension Type 2 diabetes mellitus without complication, with long-term current use of insulin ([facility]) Cigarette nicotine dependence without complication Encounter for screening mammogram for malignant neoplasm of breast Gill rash of groin Mild episode of recurrent major depressive disorder Gill infection of genital region- Primary Type 2 diabetes mellitus without complication, with long-term current use of insulin ([facility]) Gill rash of groin Abscess of left groin documented in this encounter [facility] HealthcareEvaluation note* Diagnosis Primary hypertension- Primary Unspecified essential hypertension Type 2 diabetes mellitus with diabetic neuropathy, with long-term current use of insulin ([facility]) Gastroesophageal reflux disease, unspecified whether esophagitis present Vitamin D deficiency Type 2 diabetes mellitus with complication, without long-term current use of insulin ([facility]) Mixed hyperlipidemia Mixed hyperlipidemia Encounter for screening mammogram for malignant neoplasm of breast SANTO (obstructive sleep apnea) Obstructive sleep apnea (adult) (pediatric) COPD mixed type ([facility]) Anxiety and depression COVID Open wound Open wound(s) (multiple) of unspecified site(s), without mention of complication Morbid obesity with body mass index (BMI) of 40.0 to 49.9 ([facility]) COPD mixed type ([facility])- Primary Dysuria Atrial fibrillation, unspecified type (HCC) Gastroesophageal reflux disease, unspecified whether esophagitis present Type 2 diabetes mellitus with complication, without long-term current use of insulin ([facility]) Obesity (BMI 30-39.9) Tobacco user Tobacco use disorder Anxiety and depression Dermatitis Contact dermatitis and other eczema, due to unspecified cause Type 2 diabetes mellitus with hyperglycemia ([facility])- Primary Primary hypertension Unspecified essential hypertension Edema of extremities Edema Type 2 diabetes mellitus without complication, with long-term current use of insulin ([facility]) Vitamin D deficiency Tobacco user Tobacco use disorder Dizziness and giddiness Atrial fibrillation, unspecified type (HCC) COPD mixed type (HCC) Open wound of buttock, unspecified laterality, initial encounter- Primary Type 2 diabetes mellitus without complication, with long-term current use of insulin ([facility]) Obesity (BMI 30-39.9) Dizziness and giddiness Viral upper respiratory tract infection- Primary Acute upper respiratory infections of unspecified site Tobacco user Tobacco use disorder Open wound Open wound(s) (multiple) of unspecified site(s), without mention of complication Obesity (BMI 30-39.9) Type 2 diabetes mellitus without complication, with long-term current use of insulin ([facility]) Encounter for wellness examination- Primary Osteoporosis, unspecified osteoporosis type, unspecified pathological fracture presence Open wound of buttock, unspecified laterality, initial encounter Type 2 diabetes mellitus without complication, with long-term current use of insulin ([facility]) Obesity (BMI 30-39.9) Tobacco user Tobacco use disorder Anxiety and depression Type 2 diabetes mellitus with diabetic neuropathy, with long-term current use of insulin ([facility]) COPD mixed type (HCC) Diabetic polyneuropathy associated [...] with long-term current use of insulin ([facility]) Tobacco user Tobacco use disorder Needs flu [...] 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 classified elsewhere (HCC) correction (current) use of insulin (HCC) COPD mixed [...] use of insulin (HCC) Anxiety and depression 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 ([facility]) Medical non-compliance Mild episode of recurrent major [...] without long-term current use of insulin ([facility]) Mixed hyperlipidemia Mixed hyperlipidemia Encounter for screening mammogram for malignant neoplasm of breast SANTO (obstructive sleep apnea) Obstructive sleep apnea (adult) (pediatric) COPD mixed type ([facility]) Anxiety and depression COVID Open wound Open wound(s) (multiple) of unspecified site(s), without mention of complication Morbid obesity with body mass index (BMI) of 40.0 to 49.9 ([facility]) COPD mixed type (HCC)- Primary Dysuria Atrial fibrillation, unspecified type ([facility]) Gastroesophageal reflux disease, unspecified whether esophagitis present Type 2 diabetes mellitus with complication, without long-term current use of insulin ([facility]) Obesity (BMI 30-39.9) Tobacco user Tobacco use disorder Anxiety and depression Dermatitis Contact dermatitis and other eczema, due to unspecified cause Type 2 diabetes mellitus with hyperglycemia ([facility])- Primary Primary hypertension Unspecified essential hypertension Edema of extremities Edema Type 2 diabetes mellitus without complication, with long-term current use of insulin ([facility]) Vitamin D deficiency Tobacco user Tobacco use disorder Dizziness and giddiness Atrial fibrillation, unspecified type ([facility]) COPD mixed type ([facility]) Open wound of buttock, unspecified laterality, initial encounter- Primary Type 2 diabetes mellitus without complication, with long-term current use of insulin ([facility]) Obesity (BMI 30-39.9) Dizziness and giddiness Viral upper respiratory tract infection- Primary Acute upper respiratory infections of unspecified site Tobacco user Tobacco use disorder Open wound Open wound(s) (multiple) of unspecified site(s), without mention of complication Obesity (BMI 30-39.9) Type 2 diabetes mellitus without complication, with long-term current use of insulin ([facility]) Encounter for wellness examination- Primary Osteoporosis, unspecified osteoporosis type, unspecified pathological fracture presence Open wound of buttock, unspecified laterality, initial encounter Type 2 diabetes mellitus without complication, with long-term current use of insulin ([facility]) Obesity (BMI 30-39.9) Tobacco user Tobacco use disorder Anxiety and depression Type 2 diabetes mellitus with diabetic neuropathy, with long-term current use of insulin ([facility]) COPD mixed type ([facility]) Diabetic polyneuropathy associated with type 2 diabetes mellitus ([facility]) Gastroesophageal reflux disease, unspecified whether esophagitis present [...] 2 diabetes mellitus with diabetic polyneuropathy ([facility]) Type 2 diabetes mellitus with hyperglycemia ([facility]) 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 classified elsewhere ([facility]) correction (current) use of insulin (HCC) COPD mixed type (HCC) Paroxysmal atrial fibrillation (HCC) Atrial fibrillation Primary hypertension Unspecified essential hypertension Tobacco user Tobacco use disorder JORDAN (generalized anxiety disorder)- Primary Generalized anxiety disorder SANTO (obstructive sleep apnea) Obstructive sleep apnea (adult) (pediatric) Type 2 diabetes mellitus with diabetic polyneuropathy, with long-term current use of insulin ([facility]) COPD mixed type (HCC) Oxygen dependent Dependence on supplemental oxygen Paroxysmal atrial fibrillation (HCC) Atrial fibrillation Primary hypertension Unspecified essential hypertension Gastroesophageal reflux disease, unspecified whether esophagitis present Obesity (BMI 30-39.9) Type 2 diabetes mellitus without complication, with long-term current use of insulin ([facility]) Anxiety and depression correction (current) use of insulin ([facility]) Medical non-compliance Mild episode of recurrent major depressive disorder Cigarette nicotine dependence without complication Encounter for screening mammogram for malignant neoplasm of breast Diabetic polyneuropathy associated with type 2 diabetes mellitus ([facility]) Mixed hyperlipidemia Mixed hyperlipidemia Edema of extremities Edema Abscess of left groin- Primary Primary hypertension Unspecified essential hypertension Type 2 diabetes mellitus without complication, with long-term current use of insulin ([facility]) Cigarette nicotine dependence without complication Encounter for screening mammogram for malignant neoplasm of breast Gill rash of groin Mild episode of recurrent major depressive disorder Gill infection of genital region- Primary Type 2 diabetes mellitus without complication, with long-term current use of insulin ([facility]) Gill rash of groin Abscess of left groin Type 2 diabetes mellitus without complication, with long-term current use of insulin ([facility])- Primary Gill rash of groin Cigarette nicotine dependence without complication Urge and stress incontinence Mixed incontinence urge and stress (male)(female) Primary hypertension Unspecified essential hypertension Paroxysmal atrial fibrillation (HCC) Atrial fibrillation Medical non-compliance Mild episode of recurrent major depressive disorder documented in this encounter [facility] HealthcareEvaluation note* Diagnosis Primary hypertension- Primary Unspecified essential hypertension Type 2 diabetes mellitus with diabetic neuropathy, with long-term current use of insulin ([facility]) Gastroesophageal reflux disease, unspecified whether esophagitis present Vitamin D deficiency Type 2 diabetes mellitus with complication, without long-term current use of insulin ([facility]) Mixed hyperlipidemia Mixed hyperlipidemia Encounter for screening mammogram for malignant neoplasm of breast SANTO (obstructive sleep apnea) Obstructive sleep apnea (adult) (pediatric) COPD mixed type ([facility]) Anxiety and depression COVID Open wound Open wound(s) (multiple) of unspecified site(s), without mention of complication Morbid obesity with body mass index (BMI) of 40.0 to 49.9 ([facility]) COPD mixed type ([facility])- Primary Dysuria Atrial fibrillation, unspecified type ([facility]) Gastroesophageal reflux disease, unspecified whether esophagitis present Type 2 diabetes mellitus with complication, without long-term current use of insulin ([facility]) Obesity (BMI 30-39.9) Tobacco user Tobacco use disorder Anxiety and depression Dermatitis Contact dermatitis and other eczema, due to unspecified cause Type 2 diabetes mellitus with hyperglycemia ([facility])- Primary Primary hypertension Unspecified essential hypertension Edema of extremities Edema Type 2 diabetes mellitus without complication, with long-term current use of insulin ([facility]) Vitamin D deficiency Tobacco user Tobacco use disorder Dizziness and giddiness Atrial fibrillation, unspecified type ([facility]) COPD mixed type ([facility]) Open wound of buttock, unspecified laterality, initial encounter- Primary Type 2 diabetes mellitus without complication, with long-term current use of insulin ([facility]) Obesity (BMI 30-39.9) Dizziness and giddiness Viral upper respiratory tract infection- Primary Acute upper respiratory infections of unspecified site Tobacco user Tobacco use disorder Open wound Open wound(s) (multiple) of unspecified site(s), without mention of complication Obesity (BMI 30-39.9) Type 2 diabetes mellitus without complication, with long-term current use of insulin ([facility]) Encounter for wellness examination- Primary Osteoporosis, unspecified [...] with long-term current use of insulin ([facility]) Tobacco user Tobacco use disorder Needs flu shot Need for prophylactic vaccination and inoculation against influenza Right wrist pain- Primary Pain in joint, forearm Obesity (BMI 30-39.9) 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 ([facility])- Primary COPD with acute exacerbation ([facility])- Primary Oxygen dependent Dependence on supplemental oxygen COPD mixed type (HCC) Obesity (BMI 30-39.9) COVID- Primary Type 2 diabetes mellitus with diabetic polyneuropathy ([facility]) Type 2 diabetes mellitus with hyperglycemia ([facility]) 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 classified elsewhere ([facility]) correction (current) use of insulin (HCC) COPD mixed [...] use of insulin (HCC) Anxiety and depression correction (current) use of insulin ([facility]) Medical non-compliance Mild episode of recurrent major [...] cm to 4 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 ([facility]) Vitamin D deficiency- Primary Primary hypertension Unspecified essential hypertension Edema of extremities Edema COPD mixed type (HCC) Type 2 diabetes mellitus with diabetic neuropathy, with long-term current use of insulin ([facility]) documented in this encounter [facility] HealthcareReason for referral (narrative)* Consultation (Routine) - Pending Review Specialty Diagnoses / Procedures Referred By Darcie joshua Referred To Contact Wound Care Diagnoses Open wound Type 2 diabetes mellitus without complication, with long-term current use of insulin ([facility]) Procedures [place] OFFICE/OUTPATIENT NEW HIGH MDM 60 MINUTES Maira Rush NP [address] [place] [address] Referral ID Status Reason Start Date Expiration Date Visits Requested Visits Authorized [id number] Pending Review Specialty Services Required 03/11/2024 09/07/2024 1 1 Scheduling Instructions Please call [facility] and schedule pt with their wound [...] Referred To Contact Diagnoses COPD mixed type ([facility]) Maira Rush NP [address] [place] [address] Referral ID Status Reason Start Date Expiration Date V isits Requested Visits Authorized [id number] Pending Review 1 1 Additional Source Comments INFORMATION SOURCE (unrecogn ized section and content) DATE CREATED AUTHOR 10/06/2018 [facility] DATE CREATED AUTHOR AUTHOR'S ORGANIZ ATION 10/09/2022 [facility] DATE CREATED AUTHOR AUTHOR'S ORGANIZ ATION 01/25/2024 [facility] DATE CREATED AUTHOR AUTHOR'S ORGANIZ ATION 02/14/2024 [facility] DATE CREATED AUTHOR AUTHOR'S ORGANIZ ATION 11/02/2024 [facility] DATE CREATED AUTHOR AUTHOR'S ORGANIZ ATION 01/10/2025 [facility] EPIC DATE CREATED AUTHOR AUTHOR'S ORGANIZ ATION 01/20/2025 [facility] Care Teams (unrecognized sec tion and content) Fisheries Diver Relationship Specialty Start Date End Date Brandon Mcfarlane MD [address] [place] [address] PCP - General Family Medicine 06/26/23 Maira Rush NP [address] [place] [address] Referring Physician Nurse Practitioner 12/17/22 Fisheries Diver Relationship Specialty Start Date End Date Brandon Mcfarlane MD [address] [place] [address] PCP - General Family Medicine 06/26/23 Maira Rush NP [address] [place] [address] Referring Physician Nurse Practitioner 12/17/22 Fisheries Diver Relationship Specialty Start Date End Date Brandon Mcfarlane MD [address] [place] [address] PCP - General Family Medicine 06/26/23 Maira Rush NP [address] [place] [address] Referring Physician Nurse Practitioner 12/17/22 Fisheries Diver Relationship Specialty Start Date End Date Brandon Mcfarlane MD [address] [place] [address] PCP - General Family Medicine 06/26/23 Maira Rush NP [address] [place] [address] Referring Physician Nurse Practitioner 12/17/22 Fisheries Diver Relationship Specialty Start Date End Date Brandon Mcfarlane MD [address] [place] [address] PCP - General Family Medicine 06/26/23 Maira Rush NP [address] [place] [address] Referring Physician Nurse Practitioner 12/17/22 Fisheries Diver Relationship Specialty Start Date End Date Brandon Mcfarlane MD [address] [place] [address] PCP - General Family Medicine 06/26/23 Maira Rush NP [address] [place] [address] Referring Physician Nurse Practitioner 12/17/22 Fisheries Diver Relationship Specialty Start Date End Date Brandon Mcfarlane MD [address] [place] [address] PCP - General Family Medicine 06/26/23 Maira Rush NP [address] [place] [address] Referring Physician Nurse Practitioner 12/17/22 Fisheries Diver Relationship Specialty Start Date End Date Brandon Mcfarlane MD [address] [place] [address] PCP - General Family Medicine 06/26/23 Maira Rush NP [address] [place] [address] Referring Physician Nurse Practitioner 12/17/22 Fisheries Diver Relationship Specialty Start Date End Date Brandon Mcfarlane MD [address] [place] [address] PCP - General Family Medicine 06/26/23 Maira Rush NP [address] [place] [address] Referring Physician Nurse Practitioner 12/17/22 Fisheries Diver Relationship Specialty Start Date End Date Brandon Mcfarlane MD [address] [place] [address] PCP - General Family Medicine 06/26/23 Maira Rush NP [address] [place] [address] Referring Physician Nurse Practitioner 12/17/22 Fisheries Diver Relationship Specialty Start Date End Date Brandon Mcfarlane MD [address] [place] [address] PCP - General Family Medicine 06/26/23 Maira Rush NP [address] [place] [address] Referring Physician Nurse Practitioner 12/17/22 Fisheries Diver Relationship Specialty Start Date End Date Brandon Mcfarlane MD [address] [place] [address] PCP - General Family Medicine 06/26/23 Maira Rush NP [address] [place] [address] Referring Physician Nurse Practitioner 12/17/22 Fisheries Diver Relationship Specialty Start Date End Date Brandon Mcfarlane MD [address] [place] [address] PCP - General Family Medicine 06/26/23 Maira Rush NP [address] [place] [address] Referring Physician Nurse Practitioner 12/17/22 Fisheries Diver Relationship Specialty Start Date End Date Brandon Mcfarlane MD [address] [place] [address] PCP - General Family Medicine 06/26/23 aMira Rush NP [address] [place] [address] Referring Physician Nurse Practitioner 12/17/22 Fisheries Diver Relationship Specialty Start Date End Date Brandon Mcfarlane MD [address] [place] [address] PCP - General Family Medicine 06/26/23 Maira Rush NP [address] [place] [address] Referring Physician Nurse Practitioner 12/17/22 Fisheries Diver Relationship Specialty Start Date End Date Brandon Mcfarlane MD [address] [place] [address] PCP - General Family Medicine 06/26/23 Maira Rush NP [address] [place] [address] Referring Physician Nurse Practitioner 12/17/22 Fisheries Diver Relationship Specialty Start Date End Date Brandon Mcfarlane MD [address] [place] [address] PCP - General Family Medicine 06/26/23 Maira Rush NP [address] [place] [address] Referring Physician Nurse Practitioner 12/17/22 Fisheries Diver Relationship Specialty Start Date End Date Brandon Mcfarlane MD [address] [place] [address] PCP - General Family Medicine 06/26/23 Maira Rush NP [address] [place] [address] Referring Physician Nurse Practitioner 12/17/22 Fisheries Diver Relationship Specialty Start Date End Date Brandon Mcfarlane MD [address] [place] [address] PCP - General Family Medicine 06/26/23 Maira Rush NP [address] [place] [address] Referring Physician Nurse Practitioner 12/17/22 Fisheries Diver Relationship Specialty Start Date End Date Brandon Mcfarlane MD [address] [place] [address] PCP - General Family Medicine 06/26/23 Maira Rush NP [address] [place] [address] Referring Physician Nurse Practitioner 12/17/22 Fisheries Diver Relationship Specialty Start Date End Date Brandon Mcfarlane MD [address] [place] [address] PCP - General Family Medicine 06/26/23 Maira Rush NP [address] [place] [address] Referring Physician Nurse Practitioner 12/17/22 Fisheries Diver Relationship Specialty Start Date End Date Brandon Mcfarlane MD [address] [place] [address] PCP - General Family Medicine 06/26/23 Maira Rush NP [address] [place] [address] Referring Physician Nurse Practitioner 12/17/22 Fisheries Diver Relationship Specialty Start Date End Date Brandon Mcfarlane MD [address] [place] [address] PCP - General Family Medicine 06/26/23 Maira Rush NP [address] [place] [address] Referring Physician Nurse Practitioner 12/17/22 Fisheries Diver Relationship Specialty Start Date End Date Brandon Mcfarlane MD [address] [place] [address] PCP - General Family Medicine 06/26/23 Maira Rush NP [address] [place] [address] Referring Physician Nurse Practitioner 12/17/22 Fisheries Diver Relationship Specialty Start Date End Date Brandon Mcfarlane MD [address] [place] [address] PCP - General Family Medicine 06/26/23 Maira Rush NP [address] [place] [address] Referring Physician Nurse Practitioner 12/17/22 Fisheries Diver Relationship Specialty Start Date End Date Brandon Mcfarlane MD [address] [place] [address] PCP - General Family Medicine 06/26/23 Maira Rush NP [address] [place] [address] Referring Physician Nurse Practitioner 12/17/22 Fisheries Diver Relationship Specialty Start Date End Date Brandon Mcfarlane MD [address] [place] [address] PCP - General Family Medicine 06/26/23 Maira Rush NP [address] [place] [address] Referring Physician Nurse Practitioner 12/17/22 Fisheries Diver Relationship Specialty Start Date End Date Brandon Mcfarlane MD [address] [place] [address] PCP - General Family Medicine 06/26/23 Maira Rush NP [address] [place] [address] Referring Physician Nurse Practitioner 12/17/22 Fisheries Diver Relationship Specialty Start Date End Date Brandon Mcfarlane MD [address] [place] [address] PCP - General Family [facility] 06/26/23 Maira Rush NP [address] [place] [address] Referring Physician Nurse Practitioner 12/17/22 Fisheries Diver Relationship Specialty Start Date End Date Brandon Mcfarlane MD [address] [place] [address] PCP - [facility] 06/26/23 Maira Rush NP [address] [place] [address] [facility] 06/03/24 Maira Rush NP [address] [place] [address] Referring Physician Nurse Practitioner 12/17/22 Fisheries Diver Relationship Specialty Start Date End Date Brandon Mcfarlane MD [address] [place] [address] PCP - [facility] 06/26/23 Maira Rush NP [address] [place] [address] [facility] 06/03/24 Maira Rush NP [address] [place] [address] Referring Physician Nurse Practitioner 12/17/22 Fisheries Diver Relationship Specialty Start Date End Date Brandon Mcfarlane MD [address] [place] [address] PCP - General [facility] 06/26/23 Maira Rush NP [address] [place] [address] [facility] 06/03/24 Maira Rush NP [address] [place] [address] Referring Physician Nurse Practitioner 12/17/22 Fisheries Diver Relationship Specialty Start Date End Date Brandon Mcfarlane MD [address] [place] [address] PCP - [facility] 06/26/23 Maira Rush NP [address] [place] [address] [facility] 06/03/24 Maira Rush NP [address] [place] [address] Referring Physician Nurse Practitioner 12/17/22 Fisheries Diver Relationship Specialty Start Date End Date Brandon Mcfarlane MD [address] [place] [address] PCP - [facility] 06/26/23 Maira Rush NP [address] [place] [address] [facility] 06/03/24 Maira Rush NP [address] [place] [address] Referring Physician Nurse Practitioner 12/17/22 Fisheries Diver Relationship Specialty Start Date End Date Brandon Mcfarlane MD [address] [place] [address] PCP - General Family [facility] 06/26/23 Maira Rush NP [address] [place] [address] [facility] 06/03/24 Maira Rush NP [address] [place] [address] Referring Physician Nurse Practitioner 12/17/22 Fisheries Diver Relationship Specialty Start Date End Date Brandon Mcfarlane MD [address] [place] [address] PCP - [facility] 06/26/23 Maira Rush NP [address] [place] [address] [facility] 06/03/24 Maira Rush NP [address] [place] [address] Referring Physician Nurse Practitioner 12/17/22 Fisheries Diver Relationship Specialty Start Date End Date Brandon Mcfarlane MD [address] [place] [address] PCP - [facility] 06/26/23 Maira Rush NP [address] [place] [address] [facility] 06/03/24 Maira Rush NP [address] [place] [address] Referring Physician Nurse Practitioner 12/17/22 Fisheries Diver Relationship Specialty Start Date End Date Brandon Mcfarlane MD [address] [place] [address] PCP - [facility] 06/26/23 Maira Rush NP [address] [place] [address] [facility] 06/03/24 Maira Rush NP [address] [place] [address] Referring Physician Nurse Practitioner 12/17/22 Fisheries Diver Relationship Specialty Start Date End Date Brandon Mcfarlane MD [address] [place] [address] PCP - [facility] 06/26/23 Maira Rush NP [address] [place] [address] [facility] 06/03/24 Maira Rush NP [address] [place] [address] Referring Physician Nurse Practitioner 12/17/22 Fisheries Diver Relationship Specialty Start Date End Date Brandon Mcfarlane MD [address] [place] [address] PCP - General Family [facility] 06/26/23 Maira Rush NP [address] [place] [address] [facility] 06/03/24 Maira Rush NP [address] [place] [address] Referring Physician Nurse Practitioner 12/17/22 Fisheries Diver Relationship Specialty Start Date End Date Brandon Mcfarlane MD [address] [place] [address] PCP - General [facility] 06/26/23 Maira Rush NP [address] [place] [address] [facility] 06/03/24 Maira Rush NP [address] [place] [address] Referring Physician Nurse Practitioner 12/17/22 Fisheries Diver Relationship Specialty Start Date End Date Brandon Mcfarlane MD [address] [place] [address] PCP - General Family [facility] 06/26/23 Maira Rush NP [address] [place] [address] [facility] 06/03/24 Maira Rush NP [address] [place] [address] Referring Physician Nurse Practitioner 12/17/22 Fisheries Diver Relationship Specialty Start Date End Date Brandon Mcfarlane MD [address] [place] [address] PCP - [facility] 06/26/23 Maira Rush NP [address] [place] [address] [facility] 06/03/24 Maira Rush NP [address] [place] [address] Referring Physician Nurse Practitioner 12/17/22 Fisheries Diver Relationship Specialty Start Date End Date Brandon Mcfarlane MD [address] [place] [address] PCP - [facility] 06/26/23 Maira Rush NP [address] [place] [address] [facility] 06/03/24 Maira Rush NP [address] [place] [address] Referring Physician Nurse Practitioner 12/17/22 Fisheries Diver Relationship Specialty Start Date End Date Brandon Mcfarlane MD [address] [place] [address] PCP - General [facility] 06/26/23 Maira Rush NP [address] [place] [address] [facility] 06/03/24 Maira Rush NP [address] [place] [address] Referring Physician Nurse Practitioner 12/17/22 Fisheries Diver Relationship Specialty Start Date End Date Brandon Mcfarlane MD [address] [place] [address] PCP - General Family [facility] 06/26/23 Maira Rush NP [address] [place] [address] PCP [facility] 06/03/24 Maira Rush NP [address] [place] [address] Referring Physician Nurse Practitioner 12/17/22 Fisheries Diver Relationship Specialty Start Date End Date Brandon Mcfarlane MD [address] [place] [address] PCP - General Family [facility] 06/26/23 Maira Rush NP [address] [place] [address] [facility] 06/03/24 Maira Rush NP [address] [place] [address] Referring Physician Nurse Practitioner 12/17/22 Fisheries Diver Relationship Specialty Start Date End Date Brandon Mcfarlane MD [address] [place] [address] PCP - [facility] 06/26/23 Maira Rush NP [address] [place] [address] [facility] 06/03/24 Maira Rush NP [address] [place] [address] Referring Physician Nurse Practitioner 12/17/22 Fisheries Diver Relationship Specialty Start Date End Date Brandon Mcfarlane MD [address] [place] [address] PCP - [facility] 06/26/23 Maira Rush NP [address] [place] [address] PCP - [facility] 06/03/24 Maira Rush NP [address] [place] [address] Referring Physician Nurse Practitioner 12/17/22 Fisheries Diver Relationship Specialty Start Date End Date Brandon Mcfarlane MD [address] [place] [address] PCP - [facility] 06/26/23 Maira Rush NP [address] [place] [address] [facility] 06/03/24 Maira Rush NP [address] [place] [address] Referring Physician Nurse Practitioner 12/17/22 Fisheries Diver Relationship Specialty Start Date End Date Brandon Mcfarlane MD [address] [place] [address] PCP - [facility] 06/26/23 Maira Rush NP [address] [place] [address] [facility] 06/03/24 Maira Rush NP [address] [place] [address] Referring Physician Nurse Practitioner 12/17/22 Chandrika Danielson, [place] [address] [place] [address] Family Medicine 12/14/24 Lilian Quezada, REGISTERED RADIATION THERAPIST [address] [place] [address] Commercial Decorator Family Medicine 12/14/24 Fisheries Diver Relationship Specialty Start Date End Date Brandon Mcfarlane MD [address] [place] [address] PCP - General [facility] 06/26/23 Maira Rush NP [address] [place] [address] PCP - [facility] 06/03/24 Maira Rush NP [address] [place] [address] Referring Physician Nurse Practitioner 12/17/22 Chandrika Danielson, [place] [address] [place] [address] Family Medicine 12/14/24 Lilian Quezada, REGISTERED RADIATION THERAPIST [address] [place] [address] Commercial Decorator Family Medicine 12/14/24 Fisheries Diver Relationship Specialty Start Date End Date Brandon Mcfarlane MD [address] [place] [address] PCP - General [facility] 06/26/23 Maira Rush NP [address] [place] [address] PCP - [facility] 06/03/24 Maira Rush NP [address] [place] [address] Referring Physician Nurse Practitioner 12/17/22 Chandrika Danielson, NORAH [address] [place] [address] Family Medicine 12/14/24 Lilian Quezada, REGISTERED RADIATION THERAPIST [address] [place] [place] [address] Commercial Decorator Family Medicine 12/14/24 Reason for Visit (unrecogniz [...] BE BASED ON THE PRIMARY CLINICAL RECORDS. [email or web address] [facility]. provides no warranty or guarantee of the accuracy or completeness of information in this document.
--- OUTSIDE RECORDS SUMMARY | 2025-01-27 04:34 | XMS_ITS | Encounter Summary ---
Author Organization [facility] Address [address] [place] [address] Care Team Providers Care Male Impersonator Name Role Phone Maira Rush VICE PRESIDENT CLIENT SERVICES Unavailable [phone] Brandon Monterroso MD Primary Care Provider Maira Rush VICE PRESIDENT CLIENT SERVICES Unavailable [phone] Chandrika Danielson MA Unavailable [phone] Lilian Quezada GALVANIZER Unavailable Encounter Details Date Type Department Care Team (Late Contact Info) Description 06/26/2023 Orders Only [facility] [address] [place] [address] Maira Rush VICE PRESIDENT CLIENT SERVICES [address] [place] [address] Social History Tobacco Use Types Packs/Day Years [...] Description 02/11/2025 11:30 AM EDT Clinical Support YOYL Martinez Patient Education [address] [place] [address] Bob Medina RN documented as of this encounter Procedures Procedure Name Priority Date/Time Associated Diagnosis Comments ELECTROCARDIOGRAM REPORT Routine 024 11:14 AM EST documented in this encounter Results * Electrocardiogram Report (06/24/2023 11:14 AM EST) us Maira Rush VICE PRESIDENT CLIENT SERVICES IN CLINIC/BEDSIDE ORDERABLES Fi nal Result documented in this encounter Visit Diagnoses Not on filedocumented in this encounter Care Teams Male Impersonator Relationship Specialty Start Date End Date Brandon Monterroso MD [address] [place] [address] PCP - General Family Medicine 06/26/23 Maira Rush NP [address] [place] [address] PCP - [facility] 06/03/24 Maira Rush NP [address] [place] [address] Referring Physician Nurse Practitioner 12/17/22 Chandrika Danielson, NORAH [address] [place] [address] Family Medicine 12/14/24 01/26/25 Lilian Quezada, MIAH [address] [place] [address] Patient Insurance Clerk Family Medicine 12/14/24 01/26/25 documented as of this encounter
--- OUTSIDE RECORDS SUMMARY | 2025-01-27 04:34 | XMS_ITS | Encounter Summary ---
Author Organization [facility] Address [address] [facility] [place] [address] Care Team Providers Care Dye Automation Operator Name Role Phone Maira Rush DEVELOPMENTAL EDUCATION INSTRUCTOR Unavailable [phone] Brandon Monterroso MD Primary Care Provider Maira Rush DEVELOPMENTAL EDUCATION INSTRUCTOR Unavailable [phone] Chanrdika Danielson MA Unavailable [phone] Lilian Quezada ACCOUNT MANAGEMENT ASSISTANT Unavailable [phone] Encounter Details Date Type Department Care Team (Late st Contact Info) Description 07/15/2023 [facility] [address] [place] [address] Maira Rush NP [address] [place] [address] Social History Tobacco Use Types Packs/Day Years [...] Support YOLY Martinez Patient Education [address] [place] [address] Bob Medina RN documented as of this encounter Visit Diagnoses Not on filedocumented in this encounter Care Teams Dye Automation Operator Relationship Specialty Start Date End Date Brandon Monterroso MD [address] [place] [address] PCP - General Family Medicine 06/26/23 Maira Rush NP [address] [place] [address] PCP - [facility] 06/03/24 Maira Rush NP [address] [place] [address] Referring Physician Nurse Practitioner 12/17/22 Chandrika Danielson MA [address] [place] [address] Family Medicine 12/14/24 01/26/25 Lilian Quezada LSW [address] [facility] [place] [address] Workers Compensation Attorney Family Medicine 12/14/24 01/26/25 documented as of this encounter
--- OUTSIDE RECORDS SUMMARY | 2025-01-27 04:34 | XMS_ITS | Encounter Summary ---
Author Organization [facility] Address [address] [place] [address] Care Team Providers Care Ergonomics Engineer Name Role Phone Maira Rush COAL WEIGHER Unavailable [phone] Brandon Monterroso MD Primary Care Provider Maira Rush COAL WEIGHER Unavailable [phone] Chandrika Danielson MA Unavailable [phone] Lilian Quezada STRUCTURAL FITTER Unavailable Reason for Visit * Reason Comments Med Refill Encounter Details Date Type Department Care Team (Late st Contact Info) Description 04/29/2024 Refill [facility] [address] [place] [address] Felton Gilman MD [address] [place] [address] Type 2 diabetes mellitus with hyperglycemia, with long-term current use of insulin ([facility]) Social History Tobacco Use Types [...] Support YOLY Gonzales Patient Education [address] [facility] [place] [address] Bob Medina RN documented as of this encounter Visit Diagnoses Diagnosis Type 2 diabetes mellitus with hyperglycemia, with long-term current use of insulin (HCC) documented in this encounter Care Teams Ergonomics Engineer Relationship Specialty Start Date End Date Brandon Monterroso MD [address] [place] [address] PCP - General Family Medicine 06/26/23 Maira Rush NP [address] [place] [address] PCP - [facility] 06/03/24 Maira Rush NP [address] [place] [address] Referring Physician Nurse Practitioner 12/17/22 Chandrika Danielson MA [address] [place] [address] Family Medicine 12/14/24 01/26/25 Lilian Quezada LSW [address] [place] [address] Inside Barrel Lathe Operator Family Medicine 12/14/24 01/26/25 documented as of this encounter
--- OUTSIDE RECORDS SUMMARY | 2025-01-27 04:34 | XMS_ITS | Encounter Summary ---
Author Organization [facility] Address [address] [place] [address] Care Team Providers Care Body Shop Technician Name Role Phone Brandon Monterroso MD Primary Care Provider [phone] Maira Rush NP Unavailable [phone] Brandon Monterroso MD Primary Care Provider [phone] AicMaira stearns KNITTED GARMENT FINISHER Unavailable [phone] Chandrika Danielson MA Unavailable [phone] Lilian Quezada MOLDING CUTTER Unavailable [phone] Encounter Details Date Type Department Care Team (Late st Contact Info) Description 06/24/2023 Orders Only [facility] [address] [place] [address] Kiko Garcia MD [address] [place] [address] Social History Tobacco Use Types [...] Gonzales Patient Education [address] [place] [address] Bob Medina RN documented as of this [...] on filedocumented in this encounter Care Teams Body Shop Technician Relationship Specialty Start Date End Date Brandon Monterroso MD PCP - General [facility] 12/17/22 06/25/23 Brandon Monterroso MD [address] [place] [address] PCP - [facility] 06/26/23 Maira Rush NP [address] [place] [address] PCP - [facility] 06/03/24 Maira Rush NP [address] [place] [address] Referring Physician Nurse Practitioner 12/17/22 Chandrika Danielson, [place] [address] [place] [address] Family Medicine 12/14/24 01/26/25 Lilian Quezada LSW [address] [place] [address] Inspector Electromechanical Family Medicine 12/14/24 01/26/25 documented as of this encounter
--- OUTSIDE RECORDS SUMMARY | 2025-01-27 04:34 | XMS_ITS | Encounter Summary ---
Author Organization [facility] Address [address] [place] [address] Care Team Providers Care Hardware Trainer Name Role Phone Maira Rush REGISTERED NURSE POST PARTUM Unavailable [phone] Brandon Monterroso MD Primary Care Provider Maira Rush REGISTERED NURSE POST PARTUM Unavailable [phone] Chandrika Danielson MA Unavailable [phone] Lilian Quezada ELECTRONICS ENGINEER Unavailable [phone] Encounter Details Date Type Department Care Team (Late Contact Info) Description 09/16/2023 Orders Only [facility] [address] [place] [address] Kiko Garcia MD [address] [place] [address] Social History Tobacco Use Types [...] Support YOLY Martinez Patient Education [address] [place] [address] Bob Medina RN documented as [...] on filedocumented in this encounter Care Teams Hardware Trainer Relationship Specialty Start Date End Date Brandon Monterroso MD [address] [place] [address] PCP - General Family Medicine 06/26/23 Maira Rush NP [address] [place] [address] PCP - [facility] 06/03/24 Maira Rush NP [address] [place] [address] Referring Physician Nurse Practitioner 12/17/22 Chandrika Danielson, [place] [address] [place] [address] Family Medicine 12/14/24 01/26/25 Lilian Quezada LSW [address] [place] [address] Electrotype Servicer Family Medicine 12/14/24 01/26/25 documented as of this encounter
--- OUTSIDE RECORDS SUMMARY | 2025-01-27 04:34 | XMS_ITS | Encounter Summary ---
Author Organization [facility] Address [address] [facility] [place] [address] Care Team Providers Care Nuts And Bolts Assembler Name Role Phone Maira Rush ENTRY OPERATOR Unavailable [phone] Brandon Monterroso MD Primary Care Provider Maira Rush ENTRY OPERATOR Unavailable [phone] Chandrika Danielson MA Unavailable [phone] Lilian Quezada GAS CHECK PAD MAKER Unavailable Encounter Details Date Type Department Care Team (Late Contact Info) Description 12/14/[address] [facility] [facility] [address] [place] [address] Maira Rush NP [address] [place] [address] Social History Tobacco Use Types Packs/Day Years [...] Never 12/14/2024 How often do you attend religious or pentecostalism serv ices? Never 12/14/2024 Do you belong to any clubs o r organizations such as religious groups, unions, fraternal or athletic groups, or [...] Recorded Patient Health Questionnaire-2 Score 0 10/16/2023 [facility] Occupational Stress Questionnaire Answer [...] any time in the past 12 m [facility], were you homeless or living in a m[facility] (including now)? No 12/14/2024 Comments Unknown Sex [...] Support YOLY Martinez Patient Education [address] [place] [address] Bob Medina, RN documented as of this encounter Visit Diagnoses Not on filedocumented in this encounter Care Teams Nuts And Bolts Assembler Relationship Specialty Start Date End Date Brandon Monterroso MD [address] [place] [address] PCP - General Family Medicine 06/26/23 Maira Rush NP [address] [place] [address] PCP - [facility] 06/03/24 Maira Rush NP [address] [place] [address] Referring Physician Nurse Practitioner 12/17/22 Chandrika Danielson, NORAH [address] [place] [address] Family Medicine 12/14/24 01/26/25 Lilian Quezada, MIAH [address] [place] [address] Per Diem Rn Family Medicine 12/14/24 01/26/25 documented as of this encounter
--- OUTSIDE RECORDS SUMMARY | 2025-01-27 04:34 | XMS_ITS | Encounter Summary ---
Author Organization [facility] Address [address] [place] [address] Care Team Providers Care Aids Social Worker Name Role Phone Maira Rush STEWARD/STEWARDESS BANQUET Unavailable [phone] Brandon Monterroso MD Primary Care Provider Maira Rush STEWARD/STEWARDESS BANQUET Unavailable Chandrika Danielson MA Unavailable [phone] Lilian Quezada MOTOR HOTEL MANAGER Unavailable Encounter Details Date Type Department Care Team (Late st Contact Info) Description 04/22/2024 Orders Only [facility] [address] [place] [address] Felton Gilman MD [address] [place] [address] Social History Tobacco Use Types Packs/Day Years [...] Support YOLY Martinez Patient Education [address] [place] [address] Bob Medina RN documented as of this [...] Venous blood specimen / Unknown us Felton iGlman MD LAB BLOOD ORDERABLES Final Re sult [...] on filedocumented in this encounter Care Teams Aids Social Worker Relationship Specialty Start Date End Date Brandon Monterroso MD [address] [place] [address] PCP - General Family Medicine 06/26/23 Maira Rush NP [address] [place] [address] PCP - [facility] 06/03/24 Maira Rush NP [address] [place] [address] Referring Physician Nurse Practitioner 12/17/22 Chandrika Danielson, NORAH [address] [place] [address] Family Medicine 12/14/24 01/26/25 Lilian Quezada, MIAH [address] [place] [address] Cash Grain Farmer Family Medicine 12/14/24 01/26/25 documented as of this encounter
--- OUTSIDE RECORDS SUMMARY | 2025-01-27 04:34 | XMS_ITS | Encounter Summary ---
Author Organization [facility] tem Address [id number] [address] [place] [address] Care Team Providers Care Ultrasonic Welding Machine Operator Name Role Phone Maira Rush APRN-PREMIUM REPRESENTATIVE Primary Care Provider Encounter Details Date Type Department Care Team (Late st Contact Info) Description 01/16/2025 Results Follow-Up [facility] - Emergency [address] [place] [address] Marlys Sexton RN Urine Culture Urine, Clean Catch Midstream Social History Tobacco Use Types Packs/Day Years Used Date Smoking Tobacco: Every Day Cigarettes 0.5 31 Started: 04/2022 Smokeless Tobacco: Never Alcohol Use Standard Drinks/Week Comments Not Currently 0 (1 standard drink = 0.6 oz pur e alcohol) [facility] Utilities Answer Date Recorded In the [...] on filedocumented in this encounter Care Teams Ultrasonic Welding Machine Operator Relationship Specialty Start Date End Date Maira Rush, JASSON-PREMIUM REPRESENTATIVE PCP - General Nurse Practitioner 01/16/24 documented as of this encounter
--- OUTSIDE RECORDS SUMMARY | 2025-01-27 04:34 | XMS_ITS | Clinical Summary ---
Author Organization [employer] Address [id number] [address] [place] [address] Care Team Providers Care Cd Technician Name Role Phone Maira Rush APRN-PRESSURE STEAMER TENDER Primary Care Provider Allergies Active Allergy Reactions [...] wear PAP Not wearing risk stroke, [place], Type 2 diabetes mellitus wit h complication, [...] Department Care Team Description 01/16/2025 Results Follow-Up [facility] - Emergency [address] [place] [address] Marlys Sexton RN Urine Culture Urine, Clean Catch Midstream 01/15/2025 12:51 PM EDT - 01/15/2025 5:15 PM EDT Emergency [facility] - Emergency [address] [place] [address] José Shine DO Syncope, unspecified syncope type [...] = 0.6 oz pur e alcohol) [facility] Utilities Answer Date Recorded In the past 12 months has e [employer], gas, oil, or water [email or web address] threatened to shut off services in your [...] Type Associated Problems Recent Progress Patient-Stated? Author [facility] General Yes Oralia Barnett, RN Note: Evaluation [...] Sample type VENOUS 01/15/2025 4:24 PM EDT [facility] pH, Venous 7.359 7.320 - 7.420 01/15/2025 4:24 PM EDT [facility] pCO2, Venous 55.4(H) 35.0 - 50.0 mmHg 01/15/2025 4:24 PM EDT [facility] pO2, Venous 35 30 - 50 mmHg 01/15/2025 4:24 PM EDT [facility] Base, Excess 4.0(H) 0.0 - 2.0 mmol/L 01/15/2025 4:24 PM EDT [facility] HCO3, Venous 31.2(H) 20.0 - 24.0 mmol/L 01/15/2025 4:24 PM EDT [facility] %O2 Saturation, Venous 64.0 % 01/15/2025 4:24 PM EDT [facility] Kingsley's test N/A 01/15/2025 4:24 PM EDT [facility] Sample site N/A 01/15/2025 4:24 PM EDT [facility] Insp. O2 conc. 21 % 01/15/2025 4:24 PM EDT [facility] Source Of Oxygen Room Air 01/15/2025 4:24 PM EDT [facility] venous Venous blood / Unknown 01/15/2025 4:21 PM EDT 01/15/2025 4:24 PM EDT us José Shine DO LAB BLOOD ORDERABLES Fi nal Result [facility] [address] [place] [address], [place] * CT brain without contrast (01/15/2025 [...] >500 per glucometer. (01/15/2025 3:42 PM EDT) [facility] Bedside Glucose (POC) 275(H) 65 - 99 mg/dL 01/15/2025 3:44 PM EDT [facility] arterial/capilla ry 01/15/2025 3:42 PM EDT 01/15/2025 3:44 PM EDT us José Shine DO POINT OF CARE TEST ORDE RABKAVON Final Result [facility] [address] [place] [address], [place] * (ABNORMAL) POCT Nursing Urine Macroscopic UA (01/15/2025 3:13 PM EDT) Pathologist [facility] POC Urine Specific [place] 1.010 1.010, 1.015, 1.020, 1.025 01/15/2025 3:04 PM EDT [facility] POC Urine Leukocyte Esterase Small(A) Negative 01/15/2025 3:04 PM EDT [facility] POC Urine Nitrite Negative Negative 01/15/2025 3:04 PM EDT [facility] POC Urine pH 5.5 5.0, 6.0, 6.5, 7.0, 7.5, 8.0, 8.5, 5.5 01/15/2025 3:04 PM EDT [facility] POC Urine Protein Negative Negative 01/15/2025 3:04 PM EDT [facility] POC Urine Glucose >=1000 mg/dL(A) Negative 01/15/2025 3:04 PM EDT [facility] POC Urine Ketones Negative Negative 01/15/2025 3:04 PM EDT [facility] POC Urine Urobilinogen 0.2 E.U./dL 01/15/2025 3:04 PM EDT [facility] POC Urine Bilirubin Negative Negative 01/15/2025 3:04 PM EDT [facility] POC Urine Blood/HGB Small(A) Negative 01/15/2025 3:04 PM EDT [facility] Urine 01/15/2025 3:13 PM EDT 01/15/2025 3:04 PM EDT us José Shine DO POINT OF CARE TEST ORDE RABLES Final Result Performing Organization Address [facility] Co de Phone Number [address] [place] [address], [place] * Extra Urine [place] (01/15/2025 3:02 PM EDT) Extra Tube Auto Resulted 01/15/2025 5:01 PM EDT [facility] Urine Urine specimen collection, clean catch / Unknown 01/15/2025 3:02 PM EDT 01/15/2025 3:09 PM EDT us José Shine DO URINE ORDERABLES Final Result Performing Organization Address City/[facility] Co de Phone Number [address] [place] [address], [place] * (ABNORMAL) Urine Culture Urine, Clean Catch Midstream (01/15/2025 3:02 PM EDT) CULTURE RESULTS >100,000 CFU/mL Escherichia coli(A) 01/20/2025 8:42 AM EDT [facility] CULTURE RESULTS >100,000 CFU/mL Escherichia coli(A) 01/20/2025 8:42 AM EDT [facility] Comment:Variant Urine Urine specimen collection, clean catch / Unknown 01/15/2025 3:02 PM EDT 01/15/2025 3:09 PM EDT Narrative [facility] - 01/20/2025 8:42 AM EDT Along [...] DO MICROBIOLOGY - GENERAL ORDERABLES Final Result [facility] [address] [place] [address], [place] [phone] * Extra Urine Culture (01/15/2025 3:01 PM EDT) Extra Tube Auto Resulted 01/15/2025 4:02 PM EDT [facility] Urine Urine specimen collection, clean catch / Unknown 01/15/2025 3:01 PM EDT 01/15/2025 3:09 PM EDT us José P Prietokas DO URINE ORDERABLES Final Result Performing Organization Address City/[facility]/ZIP Co de Phone Number [address] [place] [address], [place] * Extra Urine (01/15/2025 3:01 PM EDT) Extra Tube Auto Resulted 01/15/2025 4:02 PM EDT [facility] Urine Urine specimen collection, clean catch / Unknown 01/15/2025 3:01 PM EDT 01/15/2025 3:09 PM EDT us José Moreaukas DO URINE ORDERABLES Final Result Performing Organization Address City/[facility] Co de Phone Number [address] [place] [address], [place] * Drug Screen, Urine (01/15/2025 3:01 PM EDT) AMPHETAMINE/METHAMP Negative Negative 01/15 3:55 PM EDT [facility] Comment:AMPH/METH screening cut off = 1000 ng/mL COCAINE METABOLITE Negative Negative 2024 3:55 PM EDT [facility] Comment:Cocaine screening cu t off value = 300 ng/mL ECSTASY Negative Negative 01/15/2025 3:55 PM EDT [facility] Comment:Ecstasy screening cu t off value = 500 ng/mL METHADONE Negative Negative 01/15/2025 3:55 PM EDT [facility] Comment:Methadone screening cut off value = 300 ng/mL. OPIATES Negative Negative 01/15/2025 3:55 PM EDT [facility] Comment: Opiates screening cut off value = 300 ng/mL This test is used for the detection of codeine, hydrocodone (>1000 ng/mL), morphine and hydromorphone (>900 ng/mL) in urine. OXYCODONE Negative Negative 01/15/2025 3:55 PM EDT [facility] Comment: Oxycodone screening cut off value = 300 ng/mL This test is used for the detection of oxycodone and oxymorphone in urine. PHENCYCLIDINE Negative Negative 01/15/2025 3:55 PM EDT [facility] Comment:Phencyclidine screen ing cut off value = 25 ng/mL CANNABINOIDS Negative Negative 01/15/2025 3:55 PM EDT [facility] Comment:Cannabinoids/THC scr eening cut off value = 50 ng/mL Urine Barbiturates Negative Negative 2024 3:55 PM EDT [facility] Comment:Barbiturates screeni ng cut off value = 200 ng/mL BENZODIAZEPINES Negative Negative 3:55 PM EDT [facility] Comment:Benzodiazepines scre ening cut off value = 200 ng/mL Urine 01/15/2025 3:01 PM EDT 01/15/2025 3:09 PM EDT us José Shine DO URINE ORDERABLES Final Result [facility] [address] [facility] [place] [address], * Troponin I, High Sensitivity 1 Hour (01/15/2025 2:21 PM EDT) TROPONIN I, HIGH SENSITIVITY 4 <16 ng/L 01/15/2025 3:01 PM EDT [facility] Blood Venous blood / Unknown Venipuncture / Unknown 01/15/2025 2:21 PM EDT 01/15/2025 2:25 PM EDT José Shine DO LAB BLOOD ORDERABLES Fi nal Result Performing Organization Address City/[facility]/ZIP Co de Phone Number [address] [place] [address], [place] * Lactate w/ Reflex (01/15/2025 2:21 PM EDT) LACTATE W/REFLEX 1.1 0.4 - 2.0 mmol/L 01/15/2025 2:45 PM EDT [facility] Blood Venous blood / Unknown Venipuncture / Unknown 01/15/2025 2:21 PM EDT 01/15/2025 2:23 PM EDT Narrative [facility] - 01/15/2025 2:45 PM EDT Result did not trigger repeat Lactate, re-order if needed. us José Shine DO LAB BLOOD ORDERABLES Fi nal Result Performing Organization Address [facility] de Phone Number [address] [place] [address], [place] * (ABNORMAL) Acetone, (BetaHydroxybutyrate, Ketone) quantitative, serum (01/15/2025 2:21 PM EDT) BETAHYDROXYBUTYRATE 1.14(H) 0.02 - 0.27 mmol/L 01/15/2025 4:47 PM EDT [facility] Blood Venous blood / Unknown Venipuncture / Unknown 01/15/2025 2:21 PM EDT 01/15/2025 2:25 PM EDT us José Shine DO LAB BLOOD ORDERABLES Fi nal Result Performing Organization Address City/[facility]/ZIP Co de Phone Number [facility] [address] [place] [address], [place] * ECG 12 lead (01/15/2025 1:06 PM EDT) 01/15/2025 1:06 PM EDT Narrative [facility] - 01/15/2025 4:52 PM EDT us José Shine DO ECG ORDERABLES Final R esult Performing Organization Address City/[facility]/ZIP Co de Phone Number [facility] * Troponin I, High Sensitivity 0 Hour (01/15/2025 1:05 PM EDT) TROPONIN I, HIGH SENSITIVITY 4 <16 ng/L 01/15/2025 2:52 PM EDT [facility] Blood Venous blood / Unknown Venipuncture / Unknown 01/15/2025 1:05 PM EDT 01/15/2025 2:25 PM EDT us José Shine DO LAB BLOOD ORDERABLES Fi nal Result Performing Organization Address [facility] de Phone Number [address] [place] [address], [place] * (ABNORMAL) CBC auto differential (01/15/2025 1:05 PM EDT) WBC 8.7 4 - 11 x10E9/L 01/15/2025 2:31 PM EDT [facility] RBC Count 5.47(H) 3.8 - 5.2 X10E12/L 01/15/2025 2:31 PM EDT [facility] Hemoglobin 16.8(H) 11.7 - 15.5 g/dL 01/15/2025 2:31 PM EDT [facility] Hematocrit 48.9(H) 35 - 47 % 01/15/2025 2:31 PM EDT [facility] MCV 89 80 - 100 fL 01/15/2025 2:31 PM EDT [facility] MCH 30.7 27 - 34 pg 01/15/2025 2:31 PM EDT [facility] MCHC 34.4 32 - 36 g/dL 01/15/2025 2:31 PM EDT [facility] RDW 14.1 11.5 - 15 % 01/15/2025 2:31 PM EDT [facility] Platelet Count 311 150 - 450 X10E9/L 01/15/2025 2:31 PM EDT [facility] MPV 8.8 7 - 12 fL 01/15/2025 2:31 PM EDT [facility] Neutrophils % 67.8 % 01/15/2025 2:31 PM EDT [facility] Lymphocytes % 23.8 % 01/15/2025 2:31 PM EDT [facility] Monocytes % 7.1 % 01/15/2025 2:31 PM EDT [facility] Eosinophils % 0.7 % 01/15/2025 2:31 PM EDT [facility] Basophils % 0.6 % 01/15/2025 2:31 PM EDT [facility] Neutrophils Absolute (A) 5.9 1.5 - 6.6 10*3/uL 01/15/2025 2:31 PM EDT [facility] Lymphocytes Absolute 2.1 1.0 - 3.5 10*3/uL 01/15/2025 2:31 PM EDT [facility] Monocytes Absolute 0.6 0.0 - 0.9 10*3/uL 01/15/2025 2:31 PM EDT [facility] Eosinophils Absolute 0.1 0.0 - 0.4 10*3/uL 01/15/2025 2:31 PM EDT [facility] Basophils Absolute 0.1 0.0 - 0.2 10*3/uL 01/15/2025 2:31 PM EDT [facility] Differential Type AUTOMATED DIFFERENTIAL 01/15/2025 2:31 PM EDT [facility] Blood Venous blood / Unknown Venipuncture / Unknown 01/15/2025 1:05 PM EDT 01/15/2025 2:25 PM EDT us José Shine DO LAB BLOOD ORDERABLES Fi nal Result Performing Organization Address [facility] Co de Phone Number [address] [place] [address], [place] * D-Dimer (01/15/2025 1:05 PM EDT) D DIMER <150 1 - 255 ug/mL 01/15/2025 3:14 PM EDT [facility] Comment:Results <255 ng/mL D DU: The [...] ORDERABLES Fi nal Result Performing Organization Address [facility] de Phone Number [address] [place] [address], [place] * C-reactive protein (01/15/2025 1:05 PM EDT) C REACTIVE PROTEIN <0.5 <=0.7 mg/dL 01/15/2025 2:49 PM EDT [facility] Blood Venous blood / Unknown Venipuncture / Unknown 01/15/2025 1:05 PM EDT 01/15/2025 2:25 PM EDT us José Shine DO LAB BLOOD ORDERABLES Fi nal Result [address] [place] [address], [place] * Magnesium (01/15/2025 1:05 PM EDT) Pathologist [facility] MAGNESIUM 1.8 1.8 - 2.6 mg/dL 01/15/2025 2:49 PM EDT [facility] Blood Venous blood / Unknown Venipuncture / Unknown 01/15/2025 1:05 PM EDT 01/15/2025 2:25 PM EDT José Shine DO LAB BLOOD ORDERABLES Fi nal Result Performing Organization Address [facility] Co de Phone Number [address] [place] [address], [place] * Ethanol (01/15/2025 1:05 PM EDT) [facility] ETHANOL <0.010 <=0.080 g/dL 01/15/2025 2:49 PM EDT [facility] Comment: This report is intended for use in clinical monitoring or management of patients. Blood Venous blood / Unknown Venipuncture / Unknown 01/15/2025 1:05 PM EDT 01/15/2025 2:25 PM EDT us José Shine DO LAB BLOOD ORDERABLES Fi nal Result Performing Organization Address City/[facility] Co de Phone Number [address] [place] [address], [place] * (ABNORMAL) Comprehensive metabolic panel (01/15/2025 1:05 PM EDT) [facility] SODIUM 136 134 - 146 mmol/L 01/15/2025 2:49 PM EDT [facility] POTASSIUM 3.1(L) 3.5 - 5.0 mmol/L 01/15/2025 2:49 PM EDT [facility] CHLORIDE 97(L) 98 - 109 mmol/L 01/15/2025 2:49 PM EDT [facility] CARBON DIOXIDE 29 22 - 32 mmol/L 01/15/2025 2:49 PM EDT [facility] ANION GAP 10 5 - 15 mmol/L 01/15/2025 2:49 PM EDT [facility] BLOOD UREA NITROGEN 9 5 - 27 mg/dL 01/15/2025 2:49 PM EDT [facility] CREATININE 0.73 0.40 - 1.00 mg/dL 01/15/2025 2:49 PM EDT [facility] Comment:METHOD TRACEABLE TO IDMS STANDARD GLUCOSE 369(H) 65 - 99 mg/dL 01/15/2025 2:49 PM EDT [facility] CALCIUM 8.8 8.5 - 10.5 mg/dL 01/15/2025 2:49 PM EDT [facility] TOTAL PROTEIN 6.4 6.0 - 8.0 g/dL 01/15/2025 2:49 PM EDT [facility] ALBUMIN 3.3 3.2 - 5.3 g/dL 01/15/2025 2:49 PM EDT [facility] ALKALINE PHOSPHATASE 83 39 - 130 U/L 01/15/2025 2:49 PM EDT [facility] AST 15 <=41 U/L 01/15/2025 2:49 PM EDT [facility] ALT 13 <=31 U/L 01/15/2025 2:49 PM EDT [facility] BILIRUBIN,TOTAL 0.6 0.3 - 1.2 mg/dL 01/15/2025 2:49 PM EDT [facility] EGFR Non-Race Dependent >90 >=60 ml/min/1.7 3sq.m 01/15/2025 2:49 PM EDT [facility] Comment: eGFR not reported due to non-numeric value for Creatinine. Reported eGFR is based on the CKD-EPI 2020 equation that does not use a race coefficient. Blood Venous blood / Unknown Venipuncture / Unknown 01/15/2025 1:05 PM EDT 01/15/2025 2:25 PM EDT us José Shine DO LAB BLOOD ORDERABLES Fi nal Result [facility] [address] [place] [address], [place] from Last 3 Months Insurance [employer] [employer] Advance Directives * Full Code (Latest Code Status on File) Date Activated Date Inactivated Comments 01/16/2024 3:39 PM 01/22/2024 10:18 AM Care Teams Cd Technician Relationship Specialty Start Date End Date Maira Rush, JASSON-PRESSURE STEAMER TENDER PCP - General Nurse Practitioner 01/16/24
--- OUTSIDE RECORDS SUMMARY | 2025-01-27 04:35 | XMS_ITS | Encounter Summary ---
Author Organization [facility] Address [address] [place] [address] Care Team Providers Care Head Of Visual Merchandising Name Role Phone Maira Rush BUILDING CERTIFIER Unavailable [phone] Brandon Monterroso MD Primary Care Provider Maira Rush BUILDING CERTIFIER Unavailable [phone] Chandrika Danielson MA Unavailable [phone] MAGISTRATE Unavailable Encounter Details Date Type Department Care Team (Late Contact Info) Description 04/13/2024 Orders Only [facility] [address] [place] [address] Maira Rush, BUILDING CERTIFIER [address] [place] [address] Social History Tobacco Use Types Packs/Day Years [...] Support YOLY Martinez Patient Education [address] [place] [address] Bob Medina RN documented as of this encounter Procedures Procedure Name Priority Date/Time Associated Diagnosis Comments SCANNED LABS Routine 04/13/2024 8:54 AM EST documented in this encounter Results * SCANNED LABS (04/13/2024 8:54 AM EST) Maiar Rush BUILDING CERTIFIER LAB CHG PERFORMABLES Final Resu lt documented in this encounter Visit Diagnoses Not on filedocumented in this encounter Care Teams Head Of Visual Merchandising Relationship Specialty Start Date End Date Brandon Monterroso MD [address] [place] [phone] PCP - General Family Medicine 06/26/23 Maira Rush NP [address] [place] [address] PCP - [facility] 06/03/24 Maira Rush NP [address] [place] [phone] Referring Physician Nurse Practitioner 12/17/22 Chandrika Danielson, NORAH [address] [place] [address] Family Medicine 12/14/24 01/26/25 Lilian Quezada LSW [address] [place] [address] Pharmacist [facility] 12/14/24 01/26/25 documented as of this encounter
--- OUTSIDE RECORDS SUMMARY | 2025-01-27 04:35 | XMS_ITS | Clinical Summary ---
Author Organization [facility] Address [address] [place] [address] Care Team Providers Care Individual Pension Consultant Name Role Phone Maira Rush ENGINEERING RECRUITER Unavailable [phone] Brandon Monterroso MD Primary Care Provider [phone] Maira Rush ENGINEERING RECRUITER Unavailable [phone] Allergies Active Allergy Reactions Criticality Noted [...] evening. Inject with meals. Active Continuous Glucose Nurse Aide Evaluator (FreeStyle Julisa 2 [place]) deviceIndications :Type 2 diabetes mellitus with hyperglycemia, with long-term current use of insulin (HCC) 1 kit every 14 (fourteen) days 1 each 1 /25/ 2025 Active Continuous Glucose Nurse Aide Evaluator (FreeStyle Julisa 2 [place]) deviceIndications :Type 2 diabetes mellitus with hyperglycemia, with long-term current use of insulin ([facility]) USE DIRECTED 1 each Active furosemide (Lasix) 20 MG tablet Take 20 mg by mouth in the morning. 024 Active NovoLOG FLEXPEN 100 UNIT/ML penIndications:Ty pe 2 diabetes mellitus with hyperglycemia, with long-term current use of insulin ([facility]) INJECT 15-18-20 UNITS SUBCUTANEOUSLY TO [...] associated with type 2 diabetes mellitus ([facility]) Take 1 tablet (600 mg) by mouth [...] with long-term current use of insulin ([facility]) INJECT 60 UNITS SUBCUTANEOUSLY AT BEDTIME 15 mL 025 Active glucose blood (True Metrix Blood Glucose Test) test stripIndications: Type 2 diabetes mellitus with hyperglycemia, with long-term current use of insulin ([facility]) USE TO TEST BLOOD SUGAR FOUR TIMES [...] with long-term current use of insulin ([facility]) USE TO MONITOR BLOOD SUGAR [...] with long-term current use of insulin ([facility]) USE FOUR TIMES A DAY *NEW RX [...] Active insulin pen needle (Sure Comfort Pen [place]) 32G x 4 mm miscIndications:T ype 2 [...] with long-term current use of insulin ([facility]) Take 1 tablet (25 mg) [...] (10/14/2024 9:47 PM EDT): Stressors: spouse in [facility] , also not a strong support system Current med: paxil Will add medication: will trail wellbutrin Assessment & Plan (08/06/2024 10:10 AM EST): Stressors: spouse in [facility] , also not a strong support system [...] that it is the responsibility of the publicity person of the YARIEL, no this healthcare provider. The patient verbalizes understanding of this . Has a cat Cigarette nicotine dependence without complicati on 08/06/2024 Assessment & Plan (12/14/2024 6:43 AM EDT): The patient has been advised of the risks of continued smoking: stroke, MO, all forms of cancer, lung disease, and [...] of the risks of continued smoking: stroke, MO, all forms of cancer, lung disease, and [...] of the risks of continued smoking: stroke, MO, all forms of cancer, lung disease, and . Options for quitting smoking include: cold turkey, hypnosis, acupuncture, nicotine replacement meds (gum, lozenges, and patches), Buproprion, and Varenicline. At this time pt is encouraged to evaluate their goals for wanting to quit smoking, and reach out to provider when ready to start this process Diarrhea 07/14/2024 Overview (07/14/2024): [employer] [id number] Lot # [id number] Exp: 09/01/2026 long-term (current) use of insulin 06/09/2024 Adrenal mass [...] at that time Her is in a [facility], possible exposure to something there Differentials: atypical [...] 25mg BID Her new med supply from [facility] is 25mg BID This may be related to her dizziness Will obtain notes from [facility], I did call medical records and left voice mail to send all ER notes for recent visit Assessment & Plan (02/17/2024 12:59 PM EDT): Could be still with getting stronger, also will check labs to r/o anemia or elyte abnormals Fu in 3 weeks Continue with home OT/PT 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 in [facility] Dermatitis 10/16/2023 Assessment & Plan (10/16/2023 10:26 AM EDT): Will trial steroid cream for 14 days, if not better contact office SANTO (obstructive sleep apnea) 07/18/2023 Assessment & Plan (08/06/2024 6:08 AM EST): Non compliance , has been instructed in the past on importance of need to wear PAP Not wearing risk stroke, MO, Assessment & Plan (05/06/2024 7:22 AM EST): Non compliance , has been instructed in the past on importance of need to wear PAP Not wearing risk stroke, MO, Assessment & Plan (07/18/2023 3:20 PM EST): Non compliance , has been instructed in the past on importance of need to wear PAP Not wearing risk stroke, MO, Atrial fibrillation 07/18/2023 Assessment & Plan (12/14/2024 [...] Recommend slow position changes Current meds: b daina and arb Assessment & Plan (08/06/2024 6:13 [...] EST): Current med: paxil Stressors: spouse in [facility], pt does not have a large support [...] that it is the responsibility of the publicity person of the YARIEL, no this healthcare provider. [...] NEUROPATHY, WITH LONG-TERM CURRENT USE OF INSULIN ([facility]) WRITTEN ON 07/18/2023 3:19 PM BY MAIRA RUSH NP Non compliant with follow up with Endo Explained to her her persistent non compliance will lead to increase risk stroke, MO, blindness, amputation, as well as CKD Instructed [...] NEUROPATHY, WITH LONG-TERM CURRENT USE OF INSULIN ([facility]) WRITTEN ON 04/22/2024 9:52 AM BY MAIRA RUSH NP Recommend tight blood sugar control COPD mixed type 05/23/2023 Assessment & Plan (08/06/2024 9:48 AM EST): Recommend quitting smoking Continue inhalers Fu with director experimental medicine: has a walk test coming up Recommend [...] 9:43 PM EDT): Finish atb According to [facility] discharge notes, she was to have [...] of the risks of continued smoking: stroke, MO, all forms of cancer, lung disease, and [...] of the risks of continued smoking: stroke, MO, all forms of cancer, lung disease, and [...] of the risks of continued smoking: stroke, MO, all forms of cancer, lung disease, and [...] of the risks of continued smoking: stroke, MO, all forms of cancer, lung disease, and [...] of the risks of continued smoking: stroke, MO, all forms of cancer, lung disease, and [...] Department Care Team Description 01/19/2025 Patient Outreach [facility] [address] [place] [address] Lilian Quezada [facility] 01/18/2025 Patient Outreach [place] [address] [place] [address] Lilian Quezada [facility] 01/14/2025 Refill [facility] [place] [facility] [address] [place] [address] Felton Sutton MD Type 2 diabetes mellitus with hyperglycemia, with long-term current use of insulin ([facility]) 01/14/[address] [facility] [address] [place] [address] Maira Rush NP Vitamin D deficiency (Primary Dx); Primary hypertension ; Edema of extremities; COPD mixed type (HCC); Type 2 diabetes mellitus with diabetic neuropathy, with long-term current use of insulin (HCC) 01/14/2025 Abstract [facility] [address] [place] [address] Maira Rush NP 01/14/2025 Patient Outreach [place] [address] [place] [address] Chandrika Danielson MA 01/11/2025 Patient Outreach [place] [address] [place] [address] Lilian Quezada LSW 01/11/2025 Orders Only [facility] [address] [place] [address] 01/11/2025 Abstract [facility] [address] [place] [address] Maira Rush NP 01/08/2025 1:00 PM EDT Clinical Support [facility] Patient Education [address] [place] [address] Bob Medina RN Type 2 diabetes mellitus with hyperglycemia, with long-term current use of insulin (HCC) (Primary Dx); COPD mixed type (HCC) 01/08/2025 Patient Outreach [place] [address] [place] [address] Lilian Quezada, [facility] 01/08/2025 Bamboo flowsheet [facility] Patient Education [address] [place] [address] Bob Medina RN 01/07/2025 Patient Outreach [facility] [address] [place] [place] [address] Lilian Quezada, [facility] 12/31/2024 Patient Outreach [place] [address] [place] [address] Lilian Quezada, [facility] 12/22/2024 Patient Outreach [place] [address] [place] [address] Lilian Quezada, [facility] 12/16/2024 Refill [facility] [place] [facility] [address] [place] [address] Felton Sutton MD Type 2 diabetes mellitus with hyperglycemia, with long-term current use of insulin ([facility]) 12/15/2024 Refill [facility] [place] [facility] [address] [place] [address] Felton Sutton MD Type 2 diabetes mellitus with hyperglycemia, with long-term current use of insulin ([facility]) 12/15/2024 Patient Outreach [facility] [address] [place] [place] [address] Lilian Quezada, [facility] 12/14/2024 11:30 AM EDT Office Visit [facility] [address] [place] [address] Maira Rush NP Type 2 diabetes mellitus without complication, with long-term current use of insulin (HCC) (Primary Dx); Gill rash of groin; Cigarette nicotine dependence without complication; Urge and stress incontinence; Primary hypertension ; Paroxysmal atrial fibrillation ([facility]); Medical non-compliance; Lung nodule, multiple; Weight loss, unintentional; 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 (HCC) 12/14/2024 Patient Outreach [address] [place] [address] Lilian Quezada LSW 12/14/2024 Abstract [facility] [address] [place] [address] Maira Rush NP 12/14/2024 Patient Outreach [address] [place] [address] Chandrika Danielson MA 12/14/2024 [facility]ill [facility] [address] [place] [address] Maira Rush NP Mild episode of recurrent major depressive disorder 12/14/2024 [facility] [address] [place] [address] Maira Rush NP 12/01/2024 1:40 PM EDT Office Visit [facility] [address] [place] [address] Maira Rush NP Gill infection of genital region (Primary Dx); Type 2 diabetes mellitus without complication, with long-term current use of insulin ([facility]); Gill rash of groin; Abscess of left groin 12/01/2024 Bamboo flowsheet [facility] [address] [place] [address] Maira Rush NP 11/30/2024 Telephone [facility] [address] [place] [address] Maira Rush, ARLEN 11/25/2024 Orders Only [facility] [address] [place] [address] Maira Rush, ENGINEERING RECRUITER Primary hypertension (Primary Dx) 11/24/2024 Telephone [facility] [address] [place] [address] Maira Rush, ARLEN 11/17/2024 [facility] [address] [place] [address] Maira Rush, ARLEN COPD mixed type (HCC) 11/03/2024 Refill [facility] [place] [facility] [address] [place] [address] Felton Sutton MD Type 2 diabetes mellitus with hyperglycemia, with long-term current use of insulin ([facility]) 10/28/2024 Refill [facility] [place] [facility] [address] [place] [address] Felton Sutton MD Type 2 diabetes mellitus with hyperglycemia, with long-term current use of insulin ([facility]) 10/28/2024 Refill [facility] [place] [facility] [address] [place] [address] Felton Sutton MD Type 2 diabetes mellitus with hyperglycemia, with long-term current use of insulin ([facility]) from Last 3 Months Immunizations Immunization Administration [...] Never 12/14/2024 How often do you attend samaritan or presybeterian serv ices? Never 12/14/2024 Do you belong to any clubs o r organizations such as samaritan groups, unions, fraternal or athletic groups, or [...] Recorded Patient Health Questionnaire-2 Score 0 10/16/2023 [facility] Occupat ional Health - [...] any time in the past 12 m [facility], were you homeless or living in a chcf (including now)? No 12/14/2024 Comments Unknown Sex [...] Support YOLY [place] Patient Education [address] [place] [address] Bob Medina, RN Health Maintenance Due Date Last [...] Region Laterality Modality Chest Radiographic Crystal ging [facility] IMG XR PROCEDURES Final Result * [...] EST Narrative 08/05/2023 11:46 [place] [address] Mammography Report Signed Patient: RODDY DIOR MR#: [id number] : 1960 Acct:[id number] Age/Sex: 63 / F ADM Date: 08/05/23 Loc: MAMMO Attending Dr: Maira Rush NP Ordering Physician: Maira Rush NP Results: Date of Service: 08/05/23 Follow Up: Procedure(s): MM tomosynthesis screening BI Accession Number(s): [id number] cc: Maira Rush NP Patient Name: RODDY DIOR MR#: [id number] : 1960 Exam Date: 08/05/2023 Ordering Doctor: [...] breast cancer at age 64. LOCATION: [facility] BREAST COMPOSITION: Scattered areas fibroglandular density. [...] Signed By: 08/05/23 1146 DD/ 1145 TD/TT: Um Specialist: Procedure Note Radiology, Radiologist, - 08/05/2023 [place] [address] Mammography Report Signed Patient: RODDY DIOR EMR#: [id number] : 1960Acct:[id number] Age/Sex: 63 / FADM Date: 08/05/23 Loc: MAMMO Attending Dr: Maira Rush NP Ordering Physician: Maira Rushesults: Date of Service: 08/05/23Follow Up: Procedure(s): MM tomosynthesis screening BI Accession Number(s): [id number] cc: Maira Rsuh NP Patient Name: RODDY DIOR MR#: [id number] : 1960 Exam Date: 08/05/2023 Ordering Doctor: [...] breast cancer at age 64. LOCATION: [facility] BREAST COMPOSITION: Scattered areas fibroglandular density. [...] M.D. Signed By:08/05/23 1146 DD/ 1145 TD/TT: Um Specialist: Maira Rush NP [facility] Final Result from Last 3 Months or Most Recently Relevant to Health Maintenance Insurance [employer] Care Teams Individual Pension Consultant Relationship Specialty Start Date End Date Brandon Monterroso MD [address] [place] [address] PCP - General Family Medicine 06/26/23 Maira Rush NP [address] [place] [address] PCP - [facility] 06/03/24 Maira Rush NP [address] [place] [address] Referring Physician Nurse Practitioner 12/17/22
--- OUTSIDE RECORDS SUMMARY | 2025-01-27 04:35 | XMS_ITS | Encounter Summary ---
Author Organization [facility] Address [address] [facility] [place] [address] Care Team Providers Care Line Ordering Clinician Name Role Phone Maira Rush EYE DROPPER ASSEMBLER Unavailable [phone] Brandon Monterroso MD Primary Care Provider Maira Rush EYE DROPPER ASSEMBLER Unavailable [phone] Chandrika Danielson MA Unavailable [phone] Lilian Quezada CLOTH NEUTRALIZER Unavailable Encounter Details Date Type Department Care Team (Late Contact Info) Description 01/11/2025 [facility] [address] [place] [address] Maira Rush NP [address] [place] [address] Social History Tobacco Use Types Packs/Day Years [...] Never 12/14/2024 How often do you attend pentecostalism or sikh serv ices? Never 12/14/2024 Do you belong to any clubs o r organizations such as pentecostalism groups, unions, fraternal or athletic groups, or [...] Recorded Patient Health Questionnaire-2 Score 0 10/16/2023 [facility] - Occupational Stress Questionnaire [...] any time in the past 12 m [facility], were you homeless or living in a group home (including now)? No 12/14/2024 Comments Unknown Sex [...] Support YOLY [place] Patient Education [address] [place] [address] Bob Medina RN documented as of this encounter Visit Diagnoses Not on filedocumented in this encounter Care Teams Line Ordering Clinician Relationship Specialty Start Date End Date Brandon Monterroso MD [address] [place] [address] PCP - General Family Medicine 06/26/23 Maira Rush NP [address] [place] [address] PCP - [facility] 06/03/24 Maira Rush NP [address] [place] [address] Referring Physician Nurse Practitioner 12/17/22 Chandrika Danielson, [place] [address] [place] [address] Family Medicine 12/14/24 01/26/25 Lilian Quezada, MIAH [address], [place] [address] Control Room Agent Family Medicine 12/14/24 01/26/25 documented as of this encounter
--- OUTSIDE RECORDS SUMMARY | 2025-01-27 04:35 | XMS_ITS ---
Author Organization [facility] Address [address] [place] [address] Care Team Providers Care Senior Security Analyst Name Role Phone Maira Rush COMPOSITE BOND WORKER Unavailable [phone] Brandon Monterroso MD Primary Care Provider [phone] Maira Rush COMPOSITE BOND WORKER Unavailable [phone] Emergency Department Transitional Care Management (TCM) Status:Closed (Closed) Start date:01/15/2025 Enrollment date:01/19/2025 Enrollment reason:Identified using hospital discharge data End date:01/19/2025 Close reason:Actively enrolled in CCM Overview Discharged from [facility] ER on 01/15. Please contact within 2 days of discharge for ER HIRAM and schedule a follow-up appointment if needed. Continued Care and Services Coordination
--- OUTSIDE RECORDS SUMMARY | 2025-01-27 04:35 | XMS_ITS | Encounter Summary ---
Author Organization [facility] Address [address] [facility] [place] [address] Care Team Providers Care Ore Fielder Name Role Phone Maira Rush GOOD HUMOR VENDOR Unavailable [phone] Brandon Monterroso MD Primary Care Provider Maira Rush GOOD HUMOR VENDOR Unavailable [phone] Chandrika Danielson MA Unavailable [phone] Lilian Quzeada DIRECTOR OF CHANNEL MARKETING Unavailable [phone] Encounter Details Date Type Department Care Team (Late Contact Info) Description 01/14/2025 [facility] [address] [place] [address] Maira Rush NP [address] [place] [address] Social History Tobacco Use Types Packs/Day Years [...] Never 12/14/2024 How often do you attend synagogue or yazidi serv ices? Never 12/14/2024 Do you belong to any clubs o r organizations such as synagogue groups, unions, fraternal or athletic groups, or [...] Recorded Patient Health Questionnaire-2 Score 0 10/16/2023 [facility] - Occupational Stress Questionnaire [...] any time in the past 12 m [facility], were you homeless or living in a senior living (including now)? No 12/14/2024 Comments Unknown Sex [...] Support YOLY Gonzales Patient Education [address] [place] [address] Bob Medina RN documented as of this encounter Visit Diagnoses Not on filedocumented in this encounter Care Teams Ore Fielder Relationship Specialty Start Date End Date Brandon Monterroso MD [address] [place] [address] PCP - General Family Medicine 06/26/23 Maira Rush NP [address] [place] [address] PCP - [facility] 06/03/24 Maira Rush NP [address] [place] [address] Referring Physician Nurse Practitioner 12/17/22 Chandrika Danielson, MD [address] [place] [address] Family Medicine 12/14/24 01/26/25 Lilian Quezada, MIAH [address], [place] [address] Systems Accountant Family Medicine 12/14/24 01/26/25 documented as of this encounter
--- OUTSIDE RECORDS SUMMARY | 2025-01-27 04:35 | XMS_ITS | Encounter Summary ---
Author Organization [facility] Address [address] [place] [address] Care Team Providers Care Community Advocate Name Role Phone Maira Rush PAPER CUTTING MACHINE OPERATOR Unavailable Brandon Monterroso MD Primary Care Provider Maira Rush PAPER CUTTING MACHINE OPERATOR Unavailable [phone] Chandrika Danielson MA Unavailable [phone] Lilian Quezada MOTION DESIGNER Unavailable [phone] Encounter Details Date Type Department Care Team (Late Contact Info) Description 04/10/2024 Orders Only [facility] [address] [place] [address] Kiko Garcia MD [address] [place], [place] [address] Social History Tobacco Use Types Packs/Day Years [...] Support YOLY Martinez Patient Education [address] [place] [place] [address] Bob Medina RN documented as of this [...] on filedocumented in this encounter Care Teams Community Advocate Relationship Specialty Start Date End Date Brandon Monterroso MD [address] [place] [address] PCP - General Family Medicine 06/26/23 Maira Rush NP [address] [place] [address] PCP - [facility] 06/03/24 Maira Rush NP [address] [place] [address] Referring Physician Nurse Practitioner 12/17/22 Chandrika Danielson, [place] [address] [place] [address] Family Medicine 12/14/24 01/26/25 Lilian Quezada LSW [address] [place] [place] [address] Mathematics Improvement Teacher Family Medicine 12/14/24 01/26/25 documented as of this encounter
--- OUTSIDE RECORDS SUMMARY | 2025-01-27 04:35 | XMS_ITS | Encounter Summary ---
Author Organization [facility] Address [address] [place] [address] Care Team Providers Care Silk Screen Processor Name Role Phone Maira Rush NP Unavailable [phone] Brandon Monterroso MD Primary Care Provider [phone] Maira Rush NAVAL MARINE ENGINEER Unavailable [phone] Chandrika Danielson MA Unavailable [phone] Lilian Quezada WOOD CRAFTER Unavailable Encounter Details Date Type Department Care Team (Late Contact Info) Description 01/11/2025 Orders Only [facility] [address] [place] [address] Social History Tobacco Use Types Packs/Day Years [...] Never 12/14/2024 How often do you attend spiritism or scientologist serv ices? Never 12/14/2024 Do you belong to any clubs o r organizations such as spiritism groups, unions, fraPostcron or athletic groups, or school groups? No [...] Recorded Patient Health Questionnaire-2 Score 0 10/16/2023 [facility] of Occupat ional Health - Occupational [...] any time in the past [address] [facility], were you homeless or living in a halfway (including now)? No 12/14/2024 Comments Unknown Sex [...] Support YOLY Gonzales Patient Education [address] [place] [address] Bob Medina RN documented as of this encounter Procedures Procedure Name Priority Date/Time Associated Diagnosis Comments XR CHEST 1 VIEW Routine 01/11/2025 1:54 PM EDT documented in this encounter Results * XR chest 1 view (01/11/2025 1:54 PM EDT) Anatomical Region Laterality Modality Chest Radiographic Crystal ging [facility] IMG XR PROCEDURES Final Result documented in this encounter Visit Diagnoses Not on filedocumented in this encounter Care Teams Silk Screen Processor Relationship Specialty Start Date End Date Brandon Monterroso MD [address] [place] [address] PCP - General Family [facility] 06/26/23 Maira Rush NP [address] [place] [address] PCP - [facility] 06/03/24 Maira Rush NP [address] [place] [address] Referring Physician Nurse Practitioner 12/17/22 Chandrika Danielson, NORAH [address] [place] [address] Family Medicine 12/14/24 01/26/25 Lilian Quezada, WOOD CRAFTER [address] [place] [address] Carpet Cleaner Family Medicine 12/14/24 01/26/25 documented as of this encounter
--- OUTSIDE RECORDS SUMMARY | 2025-01-27 04:35 | XMS_ITS | Encounter Summary ---
Author Organization [facility] Address [address] [place] [address] Care Team Providers Care Satellite Specialist Name Role Phone Maira Rush NP Unavailable [phone] Brandon Monterroso MD Primary Care Provider [phone] Maira Rush RIBBON CUTTER Unavailable [phone] Chandrika Danielson MA Unavailable [phone] Lilian Quezada CHIEF ULTRASOUND TECHNOLOGIST Unavailable Encounter Details Date Type Department Care Team (Late st Contact Info) Description 01/18/2025 Patient Outreach [facility] [address] [place] [address] Lilian Quezada LSW [address], [place] [address] Social History Tobacco Use Types Packs/Day Years [...] Never 12/14/2024 How often do you attend nondenominational or zoroastrianism serv ices? Never 12/14/2024 Do you belong to any clubs o r organizations such as nondenominational groups, unions, fraffk environment or athletic groups, or school groups? No [...] Recorded Patient Health Questionnaire-2 Score 0 10/16/2023 [facility] ional Health [...] in the past [address] [facility], were you homeless or living in [...] Flowsheet Row Patient Outreach from 01/18/2025 in [facility] with Lilian MIAH Quezada Hospital Information ED, Hospital or [facility] Facility Discharge? ED Patient has been contacted within 2 days of being seen in the ED Yes Diagnosis Syncope, unspecified syncope type Discharge Date 01/15/25 Discharged To: Home Setting Discharge [facility] Engagement Call Start Time 1012 Admission Date 01/15/25 Medications Discharge medications reviewed and reconciled from hospital? Not applicable Does the patient have all medications ordered at discharge? Not applicable Prescription Comments no new prescriptions Medication Comments admits to not taking insulin consistently, BS was almost 500 when EMS checked Appointments Does the patient have a primary care provider? Yes [Maira Rush RIBBON CUTTER] Nursing Interventions Patient declined follow up appointment [...] Support YOLY Gonzales Patient Education [address] [facility] [place] [address] Bob Medina RN documented as of this encounter Visit Diagnoses Diagnosis Type 2 diabetes mellitus with hyperglycemia, with long-term current use of insulin (HCC)- Primary Essential (primary) hypertension Unspecified essential hypertension documented in this encounter Care Teams Satellite Specialist Relationship Specialty Start Date End Date Brandon Monterroso MD [address] [place] [address] PCP - General Family Medicine 06/26/23 Maira Rush NP [address] [place] [address] PCP - [facility] 06/03/24 Maira Rush NP [address] [place] [address] Referring Physician Nurse Practitioner 12/17/22 Chandrika Danielson, [place] [address] [place] [address] Family Medicine 12/14/24 01/26/25 Lilian Quezada LSW [address] [facility] [place] [address] Vp Care Management Family Medicine 12/14/24 01/26/25 documented as of this encounter
--- OUTSIDE RECORDS SUMMARY | 2025-01-27 04:35 | XMS_ITS | Clinical Summary ---
Author Organization [facility] Address [address] [place] [address] Care Team Providers Care Wirer [address] Light Name Role Phone Maira Rush MD Primary Care Provider [phone] Allergies Active Allergy Reactions Criticality Noted Date [...] Active Problems Problem Noted Date Diagnosed Date half-way (current) use of insulin 06/09/2024 Adrenal mass [...] of the risks of continued smoking: stroke, PR, all forms of cancer, lung disease, and [...] Department Care Team Description 10/28/2024 Orders Only [facility] [address] [place] [address] Provider, MD Harjinder from Last [...] patient's age to complete this topic Insurance [employer] Care Teams Wirer Street Light Relationship Specialty Start Date End Date Maira Rush MD [address] [place] [address] PCP - General 07/02/22
--- OUTSIDE RECORDS SUMMARY | 2025-01-27 04:35 | XMS_ITS | Encounter Summary ---
Author Organization [facility] Address [address] [place] [place] [address] Care Team Providers Care Net Technical Architect Name Role Phone Maira Rush MD Primary Care Provider [phone] Reason for Visit * Reason Comments Med Refill Encounter Details Date Type Department Care Team (Late st Contact Info) Description 05/23/2023 Refill [facility] [address] [place] [address] Amaris Comer, FORMAL WAITER/WAITRESS [address] [place] [address] Primary hypertension Social History Tobacco [...] hypertension documented in this encounter Care Teams Net Technical Architect Relationship Specialty Start Date End Date Maira Rush MD [address] [place] [address] PCP - General 07/02/22 documented as of this encounter
--- OUTSIDE RECORDS SUMMARY | 2025-01-27 04:35 | XMS_ITS | Encounter Summary ---
Author Organization [facility] Address [address] [place] [address] Care Team Providers Care Auto Radiator Specialist Name Role Phone Maira Rush CHIMNEY BUILDER HELPER Unavailable [phone] Brandon Monterroso MD Primary Care Provider Maira Rush CHIMNEY BUILDER HELPER Unavailable [phone] Chandrika Danielson MA Unavailable [phone] Lilian Quezada DEDICATED TRUCK DRIVER Unavailable Reason for Visit * Reason Comments Med Refill Encounter Details Date Type Department Care Team (Late st Contact Info) Description 10/18/2023 Refill [facility] [address] [place] [address] Maira Rush, ARLEN [address] [place] [address] Dermatitis Social History Tobacco Use Types Packs/Day [...] Support YOLY Gonzales Patient Education [address] [place] [address] Bob Medina RN documented as of this encounter Visit Diagnoses Diagnosis Dermatitis Contact dermatitis and other eczema, due to unspecified cause documented in this encounter Care Teams Auto Radiator Specialist Relationship Specialty Start Date End Date Brandon Monterroso MD [address] [place] [address] PCP - General Family Medicine 06/26/23 Maira Rush NP [address] [place] [address] PCP - [facility] 06/03/24 Maira Rush NP [address] [place] [address] Referring Physician Nurse Practitioner 12/17/22 Chandrika Danielson MA [address] [place] [address] Family Medicine 12/14/24 01/26/25 Lilian Quezada MIAH [address] [place] [address] Bull Driver Family Medicine 12/14/24 01/26/25 documented as of this encounter
--- OUTSIDE RECORDS SUMMARY | 2025-01-27 04:35 | XMS_ITS | Encounter Summary ---
Author Organization [facility] Address [address] [place] [address] Care Team Providers Care Financial Management Name Role Phone Maira Rush MD Primary Care Provider [phone] Reason for Visit * Reason Comments Med Refill Encounter Details Date Type Department Care Team (Late st Contact Info) Description 12/25/[address] [facility] [address] [place] [address] Amaris Comer, NURSERY TECHNICIAN [address] [place] [address] Edema, unspecified type Social History [...] type documented in this encounter Care Teams Financial Management Relationship Specialty Start Date End Date Maira Rush MD [address] [place] [address] PCP - General 07/02/22 documented as of this encounter
--- OUTSIDE RECORDS SUMMARY | 2025-01-27 04:35 | XMS_ITS | Encounter Summary ---
Author Organization [facility] Address [address] [place] [address] Care Team Providers Care Patrol Lady Name Role Phone Maira Rush NP Unavailable [phone] Brandon Monterroso MD Primary Care Provider [phone] Maira Rush NP Unavailable [phone] Chandrika Danielson MA Unavailable [phone] Lilian Quezada DELIVERY CREW MEMBER Unavailable [phone] Encounter Details Date Type Department Care Team ([facility] Contact Info) Description 01/14/2025 Patient Outreach [facility] POPULATION HEALTH [address] [place] [address] Chandrika Danielson MA [address] [place] [address] Social History Tobacco Use Types Packs/Day Years [...] How often do you attend samaritan or jew serv ices? Never 12/14/2024 Do you belong to any clubs o r organizations such as samaritan groups, unions, fraThe Film Co or athletic groups, or school groups? No [...] Recorded Patient Health Questionnaire-2 Score 0 10/16/2023 [facility] Occupat ional Health - [...] Yes 12/14/2024 Housing Stability Vital Sign Answer Henriuqe e Recorded In the last 12 months, was t here a time when you were not able to pay the mortgage or rent on time? Yes 12/14/2024 In the past 12 months, how m any times have you moved where you were living? 0 12/14/2024 At any time in the past [address] [facility], were you homeless or living in a [...] she said she is waiting on the sheriff's officer to show up. She did complete the application for [place] and [place] waiver with [facility]. She hasn't received any calls yet. Certified Surgical Tech/First Assistant recommended she contact [facility] based apartments [place] gave her several names of complexes. Pt wrote down the names. I also advised her if she does get evicted and hasn't found a place to go, she should reach out to the [employer] in [place]. I ex plained to her that if [...] to do this. Her is in the correction and she said she is going to [...] 02/11/2025 11:30 AM EDT Clinical Support YOLY [place] Patient Education [address] [place] [address] Bob Medina RN documented as of this encounter Visit Diagnoses Diagnosis Type 2 diabetes mellitus with hyperglycemia, with long-term current use of insulin (HCC)- Primary Essential (primary) hypertension Unspecified essential hypertension documented in this encounter Care Teams Patrol Lady Relationship Specialty Start Date End Date Brandon Monterroso MD [address] [place] [address] PCP - General Family Medicine 06/26/23 Maira Rush NP [address] [place] [address] PCP - [facility] 06/03/24 Maira Rush NP [address] [place] [address] Referring Physician Nurse Practitioner 12/17/22 Chandrika Danielson, NORAH [address] [place] [address] Family Medicine 12/14/24 01/26/25 Lilian Quezada, MIAH [address] [place] [address] General Labor Family Medicine 12/14/24 01/26/25 documented as of this encounter
--- OUTSIDE RECORDS SUMMARY | 2025-01-27 04:35 | XMS_ITS | Patient Health Record ---
Author Organization [facility] Address [address] [place] [address] Care Team Providers Care Automotive Sales Manager Name Role Phone Maira Rush CNP Primary Care Provider Unavail able Reason For Referral No Information Problems Problem Type SNOMED Code ICD Code Onset Dates Problem Status W/U Status Risk Notes Problem Pain (68178496) Pain (R52) Active confirmed Plan Of Treatment No Information Insurance Providers Payer Name Payer Address Payer Phone Subscriber Number Group Number Insured Name Patient Relationship to Insured Coverage Start Date Coverage End Date [employer] [address] [place] [address] [phone] [id number] Denae Dior Self - patient is the insured
--- OUTSIDE RECORDS SUMMARY | 2025-01-27 04:35 | XMS_ITS | Encounter Summary ---
Author Organization [facility] Address [address] [place] [address] Care Team Providers Care Pv Installer Tech Name Role Phone Maira Rush MANAGER CULTURE Unavailable [phone] Brandon Monterroso MD Primary Care Provider Maira Rush MANAGER CULTURE Unavailable [phone] Chandrika Danielson MA Unavailable [phone] Lilian Quezada DEV MANAGER Unavailable Encounter Details Date Type Department Care Team (Late Contact Info) Description 06/01/2024 Orders Only [facility] [address] [place] [address] Maira Rush, MANAGER CULTURE [address] [place] [address] Social History Tobacco Use Types Packs/Day Years [...] Support YOLY Martinez Patient Education [address] [place] [address] Bob Medina RN documented as of this encounter Procedures Procedure Name Priority Date/Time Associated Diagnosis Comments XR CHEST 1 VIEW Routine 06/01/2024 10:11 AM EST SCANNED LABS Routine 06/01/2024 10:02 AM EST documented in this encounter Results * XR chest 1 view (06/01/2024 10:11 AM EST) Anatomical Region Laterality Modality Chest Radiographic Crystal ging Maira Rush MANAGER CULTURE IMG XR PROCEDURES Final Result * SCANNED LABS (06/01/2024 10:02 AM EST) Maira Rush MANAGER CULTURE LAB CHG PERFORMABLES Final Resu lt documented in this encounter Visit Diagnoses Not on filedocumented in this encounter Care Teams Pv Installer Tech Relationship Specialty Start Date End Date Brandon Monterroso MD [address] [place] [address] PCP - General Family Medicine 06/26/23 Maira Rush NP [address] [place] [address] PCP - [facility] 06/03/24 Maira Rush NP [address] [place] [address] Referring Physician Nurse Practitioner 12/17/22 Chandrika Danielson, NORAH [address] [place] [address] Family Medicine 12/14/24 01/26/25 Lilian Quezada LSW [address] [place] [address] Nailhead Setter Family Medicine 12/14/24 01/26/25 documented as of this encounter
--- OUTSIDE RECORDS SUMMARY | 2025-01-27 04:35 | XMS_ITS | Encounter Summary ---
Author Organization [facility] Address [address] [place] [address] Care Team Providers Care Levee Superintendent Name Role Phone Maira Rush SIPHON OPERATOR Unavailable [phone] Brandon Monterroso MD Primary Care Provider [phone] Maira Rush SIPHON OPERATOR Unavailable [phone] Chandrika Danielson MA Unavailable [phone] Lilian Quezada INTERNAL MEDICINE HOSPITALIST Unavailable [phone] Reason for Visit * Reason Comments Med Refill Encounter Details Date Type Department Care Team (Late st Contact Info) Description 01/14/2025 Refill [facility] [address] [place] [address] Felton Gilman MD [address] [place] [address] Type 2 diabetes mellitus with [...] How often do you attend caodaism or orthodoxy serv ices? Never 12/14/2024 Do you belong [...] in the past 12 m [facility], were you homeless or living in a [...] YOLY Martinez Patient Education [address] [place] [address] Bob Medina RN documented as of this encounter Visit Diagnoses Diagnosis Type 2 diabetes mellitus with hyperglycemia, with long-term current use of insulin (HCC) documented in this encounter Care Teams Levee Superintendent Relationship Specialty Start Date End Date Brandon Monterroso MD [address] [place] [address] PCP - General Family Medicine 06/26/23 Maira Rush NP [address] [place] [address] PCP - [facility] 06/03/24 Maira Ruhs NP [address] [place] [address] Referring Physician Nurse Practitioner 12/17/22 Chandrika Danielson, NORAH [address] [place] [address] Family Medicine 12/14/24 01/26/25 Lilian Quezada LSW [address] [place] [address] Engineering Documentation Specialist Family Medicine 12/14/24 01/26/25 documented as of this encounter
--- OUTSIDE RECORDS SUMMARY | 2025-01-27 04:35 | XMS_ITS | Encounter Summary ---
Author Organization [facility] Address [address] [place] [address] Care Team Providers Care Metal Roofer Name Role Phone Maira Rush SPRAY GUNNER Unavailable [phone] Brandon Monterroso MD Primary Care Provider Maira Rush SPRAY GUNNER Unavailable [phone] Chandrika Danielson MA Unavailable [phone] Lilian Quezada GRAPHITE DISK ASSEMBLER Unavailable Encounter Details Date Type Department Care Team (Late Contact Info) Description 01/06/2024 Orders Only [facility] [address] [facility] [address] [place] [address] Murtaza Crenshaw MD [address] [place] [address] -x4247 (Work) Social History Tobacco Use Types [...] Support YOLY Martinez Patient Education [address] [place] [address] Bob Medina RN documented as [...] on filedocumented in this encounter Care Teams Metal Roofer Relationship Specialty Start Date End Date Brandon Monterroso MD [address] [place] [address] PCP - General Family Medicine 06/26/23 Maira Rush SPRAY GUNNER [address] [place] [address] PCP - [facility] 06/03/24 Maira Rush NP [address] [place] [address] Referring Physician Nurse Practitioner 12/17/22 Chandrika Danielson, NORAH [address] [place] [address] Family Medicine 12/14/24 01/26/25 Lilian Quezada, MIAH [address] [place] [address] Mixer Foam Rubber Family Medicine 12/14/24 01/26/25 documented as of this encounter
--- OUTSIDE RECORDS SUMMARY | 2025-01-27 04:35 | XMS_ITS | Encounter Summary ---
Author Organization [facility] Address [address] [place] [address] Care Team Providers Care Dimensional Integration Engineer Name Role Phone Maira Rush VACUUM TESTER CANS Unavailable [phone] Bradnon Monterroso MD Primary Care Provider Maira Rush VACUUM TESTER CANS Unavailable [phone] Chandrika Danielson MA Unavailable [phone] Lilian Quezada TELEVISION ANNOUNCER Unavailable [phone] Encounter Details Date Type Department Care Team (Late Contact Info) Description 07/16/2024 Orders Only [facility] [address] [place] [address] Maira Rush, VACUUM TESTER CANS [address] [place] [address] Social History Tobacco Use Types Packs/Day Years [...] Support YOLY Martinez Patient Education [address] [place] [address] Bob Medina RN documented as of this encounter Procedures Procedure Name Priority Date/Time Associated Diagnosis Comments SCANNED LABS Routine 07/16/2024 10:30 AM EST documented in this encounter Results * SCANNED LABS (07/16/2024 10:30 AM EST) Maira Rush VACUUM TESTER CANS LAB CHG PERFORMABLES Final Resu lt documented in this encounter Visit Diagnoses Not on filedocumented in this encounter Care Teams Dimensional Integration Engineer Relationship Specialty Start Date End Date Brandon Monterroso MD [address] [place] [address] PCP - General Family Medicine 06/26/23 Maira Rush NP [address] [place] [address] PCP - [facility] 06/03/24 Maira Rush NP [address] [place] [address] Referring Physician Nurse Practitioner 12/17/22 Chandrika Danielson, NORAH [address] [place] [address] Family Medicine 12/14/24 01/26/25 Lilian Quezada LSW [address] [place] [address] Mosaic Worker Family Medicine 12/14/24 01/26/25 documented as of this encounter
--- OUTSIDE RECORDS SUMMARY | 2025-01-27 04:35 | XMS_ITS | Encounter Summary ---
Author Organization [facility] Address [id number] [address] [place] [address] Care Team Providers Care Professor Of Special Education Name Role Phone Maira Rush APRN-TAPE DUPLICATOR Primary Care Provider Encounter Details Date Type Department Care Team (Late st Contact Info) Description 07/12/2022 Orders Only [facility] Pulmonary/Sleep Medicine [address] [place] [address] Jessica Lantigua LPN Social History Tobacco Use [...] on filedocumented in this encounter Care Teams Professor Of Special Education Relationship Specialty Start Date End Date Maira Rush, SHREDDER TENDER PEAT-TAPE DUPLICATOR PCP - General Nurse Practitioner 01/16/24 documented as of this encounter
--- OUTSIDE RECORDS SUMMARY | 2025-01-27 04:35 | XMS_ITS | Encounter Summary ---
Author Organization [facility] Address [address] [place] [address] Care Team Providers Care Chain Mortiser Operator Name Role Phone Maira Rush HULL MOLDER Unavailable [phone] Brandon Monterroso MD Primary Care Provider Maira Rush HULL MOLDER Unavailable [phone] Chandrika Danielson MA Unavailable [phone] Lilian Quezada SYNTHETIC FILAMENT EXTRUDER Unavailable Reason for Visit * Reason Comments Med Refill Encounter Details Date Type Department Care Team (Late Contact Info) Description 07/25/2024 Refill [facility] [address] [place] [address] Maira Rush, HULL MOLDER [address] [place] [address] Diarrhea, unspecified type Social History Tobacco Use [...] Gonzales Patient Education [address] [place] [address] Bob Medina, BARI documented as of this encounter Visit Diagnoses Diagnosis Diarrhea, unspecified type documented in this encounter Care Teams Chain Mortiser Operator Relationship Specialty Start Date End Date Brandon Monterroso MD [address] [place] [address] PCP - General Family [facility] 06/26/23 Maira Rush, ARLEN [address] [place] [address] PCP - [facility] 06/03/24 Maira Rush, ARLEN [address] [place] [address] Referring Physician Nurse Practitioner 12/17/22 Chandrika Danielson, [place] [address] [place] [address] Family Medicine 12/14/24 01/26/25 Lilian Quezada, MIAH [address] [facility] [place] [address] Certified Prosthetist Vice President Family Medicine 12/14/24 01/26/25 documented as of this encounter
--- OUTSIDE RECORDS SUMMARY | 2025-01-27 04:35 | XMS_ITS | Encounter Summary ---
Author Organization [facility] Address [address] [place] [address] Care Team Providers Care Hand Expansion Envelope Maker Name Role Phone Maira Rush PHOTOGRAPHIC DOUBLE Unavailable [phone] Brandon Monterroso MD Primary Care Provider Maira Rush PHOTOGRAPHIC DOUBLE Unavailable [phone] Chandrika Danielson MA Unavailable [phone] Lilian Quezada FIELD ASSISTANT Unavailable [phone] Encounter Details Date Type Department Care Team (Late Contact Info) Description 02/25/2024 Orders Only [facility] [address] [place] [address] Maira Rush, PHOTOGRAPHIC DOUBLE [address] [place] [address] Social History Tobacco Use Types Packs/Day Years [...] Support YOLY Martinez Patient Education [address] [place] [address] Bob Medina RN documented as of this encounter Procedures Procedure Name Priority Date/Time Associated Diagnosis Comments SCANNED LABS Routine 02/25/2024 3:38 PM EDT ECG 12-LEAD Routine 02/25/2024 3:38 PM EDT SCANNED LABS Routine 02/25/2024 11:15 AM EDT documented in this encounter Results * SCANNED LABS (02/25/2024 3:38 PM EDT) Maira Rush PHOTOGRAPHIC DOUBLE LAB CHG PERFORMABLES Final Resu lt * ECG 12 lead (02/25/2024 3:38 PM EDT) Maira Rush PHOTOGRAPHIC DOUBLE ECG ORDERABLES Final Result * SCANNED LABS (02/25/2024 11:15 AM EDT) Maira Rush PHOTOGRAPHIC DOUBLE LAB CHG PERFORMABLES Final Resu lt documented in this encounter Visit Diagnoses Not on filedocumented in this encounter Care Teams Hand Expansion Envelope Maker Relationship Specialty Start Date End Date Brandon Monterroso MD [address] [place] [address] PCP - General Family Medicine 06/26/23 Maira Rush NP [address] [place] [address] PCP - [facility] 06/03/24 Maira Rush NP [address] [place] [address] Referring Physician Nurse Practitioner 12/17/22 Chandrika Danielson, NORAH [address] [place] [address] Family Medicine 12/14/24 01/26/25 Lilian Quezada, MIAH [address] [place] [address] Editor & Co Founder Family Medicine 12/14/24 01/26/25 documented as of this encounter
--- OUTSIDE RECORDS SUMMARY | 2025-01-27 04:35 | XMS_ITS | Encounter Summary ---
Author Organization [facility] Address [address] [place] [address] [address] Care [address] Man Name Role Phone Maira Rush MD Primary Care Provider [phone] Reason for Visit * Reason Comments Med Refill Encounter Details Date Type Department Care Team (Late st Contact Info) Description 07/24/2023 Refill [facility] [address] [place] [address] Amaris Comer, HOTEL DIRECTOR [address] [place] [address] Hyperlipidemia, unspecified hyperlipidemia type; Paroxysmal [...] fibrillation documented in this encounter Care Teams Drive Man Relationship Specialty Start Date End Date Maira Rush MD [address] [place] [id number] PCP - General 07/02/22 documented as of this encounter
--- OUTSIDE RECORDS SUMMARY | 2025-01-27 04:35 | XMS_ITS | Encounter Summary ---
Author Organization [facility] Address [address] [place] [address] Care Team Providers Care Electronic Assembler Name Role Phone Maira Rush NP Unavailable [phone] Brandon Monterroso MD Primary Care Provider [phone] Maira Rush ECOTHERAPIST Unavailable [phone] Chandrika Danielson MA Unavailable [phone] Lilian Quezada COUNTER PERSON Unavailable Encounter Details Date Type Department Care Team (Late st Contact Info) Description 01/19/2025 Patient Outreach [facility] [address] [place] [address] Lilian Quezada LSW [address] [place], [place] [phone] Social History Tobacco Use Types Packs/Day Years [...] How often do you attend orthodoxy or congregational serv ices? Never 12/14/2024 Do you belong to any clubs o r organizations such as orthodoxy groups, unions, [employer]henzhen [employer] or athletic groups, or school groups? No [...] any time in the past 12 m [facility], were you homeless or living in a correction (including now)? No 12/14/2024 Comments Unknown Sex [...] to pt. She has not heard from [email or web address] yet. Her friend called the [facility] for her and they have a waiting list, and will not accept her cat. Pt is still in her current apartment, but was served papers and has court hearing 02/16. Reviewed that MIAH will no longer be working with PCP office after 01/26. Confirmed pt still has correction ph#. documented in this encounter Plan of Treatment Upcoming Encounters Date Type Department Care Team (Late st Contact Info) Description 02/11/2025 11:30 AM EDT Clinical Support YOLY [place] Patient Education [address] [place] [address] Bob Medina RN documented as of this encounter Visit Diagnoses Diagnosis Type 2 diabetes mellitus with hyperglycemia, with long-term current use of insulin (HCC)- Primary Essential (primary) hypertension Unspecified essential hypertension documented in this encounter Care Teams Electronic Assembler Relationship Specialty Start Date End Date Brandon Monterroso MD [address] [place] [address] PCP - General Family Medicine 06/26/23 Maira Rush NP [address] [place] [address] PCP - [facility] 06/03/24 Maira Rush NP [address] [place] [address] Referring Physician Nurse Practitioner 12/17/22 Chandrika Danielson, NORAH [address] [place] [address] Family Medicine 12/14/24 01/26/25 Lilian Quezada, MIAH [address] [place] [address] Strategic Planning Manager Family Medicine 12/14/24 01/26/25 documented as of this encounter
--- OUTSIDE RECORDS SUMMARY | 2025-01-27 04:35 | XMS_ITS ---
Author Organization [facility] Address [address] [place] [address] Care Team Providers Care Gallery Host Name Role Phone Maira Rush MANAGER COST Unavailable [phone] Brandon Monterroso MD Primary Care Provider [phone] Maira Rush MANAGER COST Unavailable [phone] Emergency Department Transitional Care Management (TCM) Status:Closed (Closed) Start date:01/09/2025 Enrollment date:01/13/2025 Enrollment reason:Identified using hospital discharge data End date:01/13/2025 Close reason:Actively enrolled in CCM Overview Discharged from [facility] ER on 01/09. Please contact within 2 days of discharge for ERTOC and schedule a follow-up appointment if needed. Continued Care and Services Coordination
--- OUTSIDE RECORDS SUMMARY | 2025-01-27 04:35 | XMS_ITS | Encounter Summary ---
Author Organization [facility] Address [address] [place] [address] Care Team Providers Care Insurance Appraiser Name Role Phone Maira Rush BROADCAST FIELD SUPERVISOR Unavailable [phone] Brandon Monterroso MD Primary Care Provider [phone] Maira Rush BROADCAST FIELD SUPERVISOR Unavailable [phone] Chandrika Danielson MA Unavailable [phone] Lilian Quezada POND TENDER Unavailable [phone] Reason for Visit * Reason Comments Med Refill Encounter Details Date Type Department Care Team (Late st Contact Info) Description 01/14/2025 Refill [facility] [address] [place] [address] Maira Rush, ARLEN [address] [place] [address] Vitamin D deficiency (Primary Dx); Primary hypertension ; Edema of extremities; COPD mixed type (HCC); Type 2 diabetes mellitus with diabetic neuropathy, with long-term current use of insulin [facility] Social History Tobacco Use Types [...] Never 12/14/2024 How often do you attend restorationist or congregational serv ices? Never 12/14/2024 Do you belong to any clubs o r organizations such as restorationist groups, unions, fraternal or athletic groups, or [...] Recorded Patient Health Questionnaire-2 Score 0 10/16/2023 [facility] - Occupational [...] any time in the past 12 m [facility], were you homeless or living [...] Support YOLY Martinez Patient Education [address] [place] [address] Bob Medina RN documented as of this encounter Visit Diagnoses Diagnosis Vitamin D deficiency- Primary Primary hypertension Unspecified essential hypertension Edema of extremities Edema COPD mixed type (HCC) Type 2 diabetes mellitus with diabetic neuropathy, with long-term current use of insulin (HCC) documented in this encounter Care Teams Insurance Appraiser Relationship Specialty Start Date End Date Brandon Monterroso MD [address] [place] [address] PCP - General Family [facility] 06/26/23 Maira Rush NP [address] [place] [address] PCP - [facility] 06/03/24 Maira Rush NP [address] [place] [address] Referring Physician Nurse Practitioner 12/17/22 Chandrika Danielson, SD [address] [place] [address] Family Medicine 12/14/24 01/26/25 Lilian Quezada, MIAH [address] [place] [address] Instrument Maintenance Supervisor Family Medicine 12/14/24 01/26/25 documented as of this encounter
--- OUTSIDE RECORDS SUMMARY | 2025-01-27 04:35 | XMS_ITS | Encounter Summary ---
Author Organization [facility] Address [address] [place] [address] Care Team Providers Care Matrix Supervisor Name Role Phone Maira Rush NP Unavailable Brandon Monterroso MD Primary Care Provider [phone] Maira Rush OUTSIDE COLLECTOR Unavailable [phone] Chandrika Danielson MA Unavailable [phone] Lilian Quezada WIND TECHNICIAN Unavailable Encounter Details Date Type Department Care Team (Late st Contact Info) Description 01/11/2025 Patient Outreach [facility] [address] [place] [address] Lilian Quezada LSW [address] [place], [place] [phone] Social History Tobacco Use Types Packs/Day Years [...] Never 12/14/2024 How often do you attend scientologist or catholic serv ices? Never 12/14/2024 Do you belong to any clubs o r organizations such as scientologist groups, unions, fraTour Raiser or athletic groups, or school groups? No [...] Recorded Patient Health Questionnaire-2 Score 0 10/16/2023 [facility] - Occupational [...] any time in the past 12 m [facility], were you homeless or living [...] MIAH Storm> Requested full ED report from [facility] <January 12, 2025, 12:58 - MIAH Storm> Attempted call to pt, LM requesting call back <January 13, 2025, 10:57 - MIAH Storm> 2nd attempt to call pt. No answer and unable to leave message. ED TCM complete based on discharge records. Flowsheet Row Patient Outreach from 01/11/2025 in [facility] with MIAH Storm Hospital Information ED, Hospital or Penitentiary Facility Discharge? ED Patient has been contacted within 2 days of being seen in the ED No Have two attempts been made, within 2 days of being seen in the ED, to contact the patient? Yes Diagnosis atypical chest pain Discharge Date 01/09/25 Discharged To: Home Setting Discharge Hospital [facility] Engagement Admission Date 01/09/25 Medications Appointments [...] Support YOLY Gonzales Patient Education [address] [place] [address] Bob Medina RN documented as of this encounter Visit Diagnoses Diagnosis Type 2 diabetes mellitus with hyperglycemia, with long-term current use of insulin (HCC)- Primary Essential (primary) hypertension Unspecified essential hypertension documented in this encounter Care Teams Matrix Supervisor Relationship Specialty Start Date End Date Brandon Monterroso MD [address] [place] [address] PCP - General Family Medicine 06/26/23 Maira Rush NP [address] [place] [address] PCP - [facility] 06/03/24 Maira Rush NP [address] [place] [address] Referring Physician Nurse Practitioner 12/17/22 Chandrika Danielson MA [address] [place] [address] Family Medicine 12/14/24 01/26/25 Lilian Quezada MIAH [address] [place] [address] Professional Engineer Family Medicine 12/14/24 01/26/25 documented as of this encounter
[2025-01-27] MEDS: 0.9 % SODIUM CHLORIDE 1,000 ML 100 ML IV ×2 (05:54→17:35)
--- NOTE | 2025-01-27 08:15 | CM.NOTE ---
Rounds made with Dr. Szymanski, discussed with pt plan of care and reason for admission. Clarified pt's status, OBS status and order entered.
[2025-01-27] MEDS: ASPIRIN 81 MG TABLET.DR PO (09:18)
[2025-01-27] MEDS: ATORVASTATIN CALCIUM 20 MG TABLET PO (09:18)
[2025-01-27] MEDS: PANTOPRAZOLE SODIUM 40 MG TABLET.DR PO (09:18)
[2025-01-27] MEDS: INSULIN ASPART 300 UNIT/3 ML PEN SUBQ ×4 (09:18→22:07)
[2025-01-27] MEDS: CARVEDILOL 12.5 MG TABLET PO ×2 (09:18→22:07)
[2025-01-27] MEDS: GABAPENTIN 300 MG CAPSULE PO ×3 (09:19→22:07)
[2025-01-27] MEDS: RIVAROXABAN 10 MG TABLET 20 MG PO (09:19)
[2025-01-27] MEDS: PAROXETINE HCL 20 MG TABLET 30 MG PO (09:19)
[2025-01-27] MEDS: BUDESONIDE 0.5 MG/2 ML AMPULE NEB IH ×2 (10:27→21:39)
[2025-01-27] MEDS: ALBUTEROL SULFATE 2.5 MG/3 ML VIAL NEB IH ×3 (10:28→21:39)
--- NOTE | 2025-01-27 10:30 | SWNOTE1 ---
SW met with pt to discuss dc needs. Pt lives at home in an apartment complex by herself. Pt does have a walker that she does use. She also has a gregory at home with her. Pt asked if she had any family or friends that help her or check on her? She stated her neighbor friend does. SW asked if someone will be checking on gregory, she voiced that she filled up his water and food bowls. SW recommended her friend at [facility] check if he can. Pt does not have any services coming in to the home at this time. SW did ask about home oxygen. Pt does have it from somewhere, but does told SW she does not wear it. SW asked if she was short of breath? Pt did not feel short of breath, only when up and walking. SW to check previous visits to see if we set up for home oxygen. Pt voiced she is going to be evicted. SW asked if she paid rent this month? Pt stated she has not paid since October. SW asked if she spoke to [facility]. Pt stated she wants to get out of that apt complex anyway. Pt stated she did have the money, but she voiced she was dumb with it and she was scammed by people. She stated she is going to court on February 16. SW asked if she had another place lined up to move in to? Pt stated she put in her application at [facility] and [facility]. SW advised that she will not be able to stay at [facility] forever. Pt is aware and she is not able to take her gregory there either. SW asked if she would like a list of assisted living facilities and apartment complexes in the area? Pt voiced she has all that at home. SW advised pt that she does need to start calling as many places do have a wait list. Pt then stated she thought about checking herself in to a [facility]. Pt does have [employer] (Medicaid). SW advised that may be beneficial for pt so she is somewhere where nursing will be able to check on her and she will get food. Pt voiced she is thinking about calling [facility] in [place] or [place]. SW again advised to call soon and that it is possible those facilities will work with her since she does have a form of Medicaid. Pt is alert and oriented and aware of her current living situation. SW did offer several times to provide list and assist with calling places, but pt voiced she has the list and she will start calling more places. SW did ask again if she had family that could take her in for a short time if needed if she does get evicted. She stated she has attempted to call her 2 nephews in [place], but they have not been helpful. At this time pt refuses SW assistance. SW to review physical therapy notes once pt is evaluated.
--- NOTE | 2025-01-27 10:44 | SWNOTE1 ---
SW called [facility] and pt is prescribed 2 liters nasal canula continuous. Maira Rush wrote prescription (pt's PCP) on 11/17/24.
--- NOTE | 2025-01-27 12:01 | CA_ITS ---
Patient Name: RODDY HORN MR#: [id number] : 1960 Exam Date: 01/27/2025 Ordering Doctor: JAMI MCCLELLAN ECHOCARDIOGRAM REPORT PROCEDURE: CA ECHO DOPPLER COMPLETE INDICATIONS: Syncope r/o valvular disease COMPARISON: None. DESCRIPTION: COMPLETE ECHOCARDIOGRAM Real-time transthoracic echocardiography with 2D, M-mode, spectral and color flow Doppler performed. QUALITY: Technical quality was good. LEFT VENTRICLE: Normal chamber size. Moderate concentric left ventricular hypertrophy. Calculated left ventricular ejection fraction is hyperdynamic at 79%. LV EF: Global left ventricular systolic function is hyperdynamic; visually estimated ejection fraction is 70 to 75%. No regional wall motion abnormalities. DIASTOLIC: Normal diastolic function. ATRIAL SEPTUM: Inadequately seen. LEFT ATRIUM: Normal chamber size. RIGHT ATRIUM: Normal chamber size. RIGHT VENTRICLE: Normal chamber size. Normal right ventricular systolic function. TRICUSPID VALVE: Normal mobility and thickness. No stenosis with mild regurgitation. Mild pulmonary hypertension. RVSP 35mmHg. MITRAL VALVE: Normal mobility and thickness. No evidence of mitral valve stenosis. There is no mitral annular calcification. Trivial mitral regurgitation. AORTIC VALVE: Normal trileaflet appearance. No visible sclerosis. Normal leaflet mobility. No evidence of aortic valve stenosis. No aortic regurgitation. AORTIC ROOT: Normal diameter and appearance. PULMONIC VALVE: Normal thickness and mobility. No stenosis. No regurgitation. PERICARDIUM: No evidence of pericardial effusion. IVC: Collapses with inspiration. Normal size. CONCLUSION: 1. Global left ventricular systolic function is hyperdynamic; visually estimated ejection fraction is 70 to 75% 2. Normal right ventricular size and systolic function 3. Moderate left ventricular hypertrophy 4. Normal diastolic function 5. Mild tricuspid regurgitation 6. Mildly elevated right ventricular systolic pressure; RVSP 35 mmHg Adult Echocardiography Procedure Report Left Ventricle LVEDD (3.7 - 5.6 cm): 3.54 cm LVESD (2.2 - 4.0 cm): 2.36 cm LVIVS thickness (0.6 - 1.2 cm): 1.39 cm LVPW thickness (0.5 - 1.0 cm): 1.38 cm e': 0.09 m/s E - e': 7.78 LVOT Max Gradient: 6.89 mm[Hg] LVOT Area (cm2): 1.31 m/s Peak Velocity (LVOT): 1.31 m/s Mean Velocity (LVOT): 0.90 m/s LVOT Diameter 2.15 cm Left Ventricular Ejection Fraction: 78.92 % Left Atrium LA Volume Index (2D A2C): 29.13 ml/m2 Left Atrium Systolic Dimension: 3.24 cm Mitral Valve MV E to A Ratio: 0.87 Mitral Valve A-Wave Peak Velocity: 0.83 m/s Mitral Valve E-Wave Peak Velocity: 0.72 m/s Right Ventricle RV Internal Diastolic Dimension: 2.82 cm Aorta AO Root Diam: 2.55 cm Ascending Ao Diam: 2.19 cm Aortic Valve AoV Area (Peak Matty): 3.48 cm2, 3.48 cm2 AoV Area (VTI): 3.13 cm2, 3.13 cm2 Peak Velocity(Antegrade Flow): 1.36 m/s Peak Gradient(Antegrade Flow): 7.41 mm[Hg] Mean Velocity(Antegrade Flow): 0.97 m/s Mean Gradient(Antegrade Flow): 4.35 mm[Hg] Velocity Time Integral: 34.11 cm Tricuspid Valve Peak Velocity (Regurgitant Flow): 2.70 m/s, 2.82 m/s, 2.64 m/s Pulmonic Valve Mean Gradient: 1.60 mm[Hg], 2.16 mm[Hg] Mean Velocity: 0.62 m/s, 0.70 m/s Peak Velocity: 0.84 m/s Peak Gradient: 2.42 mm[Hg], 3.20 mm[Hg] Right Atrium Right Atrium Systolic Pressure: 29.46 ml, 29.46 ml Dictated by: Kathy Huston M.D. on 01/27/2025 at 16:36 Approved by: Kathy Huston M.D. on 01/27/2025 at 16:39
--- NOTE | 2025-01-27 12:01 | CT_ITS ---
The [address] [address] Patient Name: RODDY HORN MRN: [id number] date: 1960 Sex: F Assigned Patient Location: [place] Current Patient Location: [place] Accession/Order Number: [id number] Exam Date: 01/27/2025 12:25 Report Date: 01/27/2025 13:24 At the request of: JAMI MCCLELLAN MD Procedure: CT head/brain wo con CT BRAIN WITHOUT CONTRAST: CLINICAL HISTORY: syncope COMPARISON: 01/06/2024 TECHNIQUE: Contiguous axial unenhanced images were obtained through the brain. This CT exam was performed using one or more following dose reduction techniques: Automated exposure control, adjustment of the mA and/or kV according to patient size, or use of iterative reconstruction technique. FINDINGS: There is mild cortical atrophy. The ventricles are normal in size and position. Subtle white matter hypodensity is again seen in the periventricular and subcortical region. There is hypodensity in the vicinity of the right thalamus (axial image 23 and sagittal 34) which may be a lacunar infarct. It appears more defined than the comparison. Physiologic basal ganglia calcification are seen. There are no additional areas of abnormal attenuation. There is no hemorrhage, mass effect or extra-axial collections. The imaged paranasal sinuses and mastoid air cells are clear. There is carotid siphon and vertebral artery plaque. CT/CT head/brain wo con IMPRESSION: MINOR ATROPHY AND SMALL VESSEL ISCHEMIC CHANGES. POSSIBLE RIGHT THALAMIC LACUNAR INFARCT . THIS IS NOT DEFINITELY ACUTE HOWEVER MRI FOLLOW-UP COULD BE CONSIDERED, IF SYMPTOMS WARRANT. NO OTHER ACUTE INTRACRANIAL ABNORMALITY. Impression dictated by: Estelle Colón M.D. 01/27/2025 1:24 PM Dictation Location: [place] [address] Electronically authenticated by: [id number] Y Date: 01/27/2025 13:24
--- NOTE | 2025-01-27 12:05 | PM.HP ---
HPI H&P: HPI History of Present Illness Chief complaint: SYNCOPAL, NEAR SYNCOPE, COPD EXACERBATION Narrative: Mrs. Dior is a 64-year-old female who came to the emergency room after she felt dizzy and almost passed out. Patient was noted to have borderline low blood pressure. No fever or chills. Patient was at the [facility] emergency room as per report and was treated with UTI. Patient has hypertension, COPD. She is a smoker. She does not take medication as appropriate and indicated Patient is sleeping this morning. I woke her up couple of times. I left her room and came back and is still sleeping. Able and willing to answer yes/no questions without elaboration. Unable to or unwilling to provide details. She falls back to sleep stating that she did not sleep all night long. Opioid HPI Opioid Management Most Recent Pain and Opioid Data: Last Pain Scale 5 Today, 10:00 Last Pain Assessment Today, 05:43 Last ORT Total Score 1 Today, 04:21 Last ORT Risk Category Low Risk Today, 04:21 PFSH [facility] Medical History (Updated 01/27/25 @ 12:07 by Tamara Szymanski MD) Paroxysmal atrial fibrillation ?I48.0 - Paroxysmal atrial fibrillation (ICD-10) Diabetes mellitus with hyperglycemia, with long-term current use of insulin ?E11.65 - Type 2 diabetes mellitus with hyperglycemia (ICD-10) ?Z79.4 - residential (current) use of insulin (ICD-10) Hypertension ?I10 - Essential (primary) hypertension (ICD-10) Chronic obstructive pulmonary disease ?J44.9 - Chronic obstructive pulmonary disease, unspecified (ICD-10) COVID ?U07.1 - COVID-19 (ICD-10) Acute and chronic respiratory failure ([id number]) ?J96.20 - Acute and chronic respiratory failure, unspecified whether with hypoxia or hypercapnia (ICD-10) Acute exacerbation of chronic obstructive pulmonary disease ?J44.1 - Chronic obstructive pulmonary disease with (acute) exacerbation (ICD-10) Dehydration ?E86.0 - Dehydration (ICD-10) Acute infective exacerbation of chronic obstructive airway disease ?J44.1 - Chronic obstructive pulmonary disease with (acute) exacerbation (ICD-10) Syncope ?R55 - Syncope and collapse (ICD-10) Head injury ?S09.90XA - Unspecified injury of head, initial encounter (ICD-10) Fall ?W19.XXXA - Unspecified fall, initial encounter (ICD-10) Closed head injury ?S09.90XA - Unspecified injury of head, initial encounter (ICD-10) Vertigo ?R42 - Dizziness and giddiness (ICD-10) Finger pain, right ?M79.644 - Pain in right finger(s) (ICD-10) Community acquired pneumonia ?J18.9 - Pneumonia, unspecified organism (ICD-10) COPD exacerbation ?J44.1 - Chronic obstructive pulmonary disease with (acute) exacerbation (ICD-10) COVID-19 ?U07.1 - COVID-19 (ICD-10) Hyperglycemia, drug-induced ?R73.9 - Hyperglycemia, unspecified (ICD-10) ?T50.905A - Adverse effect of unspecified drugs, medicaments and biological substances, initial encounter (ICD-10) Abscess ?L02.91 - Cutaneous abscess, unspecified (ICD-10) Acute hyperglycemia ?R73.9 - Hyperglycemia, unspecified (ICD-10) A-fib ?I48.91 - Unspecified atrial fibrillation (ICD-10) Diabetes ?E11.9 - Type 2 diabetes mellitus without complications (ICD-10) Acute shoulder pain ?M25.519 - Pain in unspecified shoulder (ICD-10) Hyperlipidemia ?E78.5 - Hyperlipidemia, unspecified (ICD-10) Depression ?F32.A - Depression, unspecified (ICD-10) Surgical History History of appendectomy ?Z90.49 - Acquired absence of other specified parts of digestive tract (ICD-10) Hx of cholecystectomy ?Z90.49 - Acquired absence of other specified parts of digestive tract (ICD-10) H/O: hysterectomy ?Z90.710 - Acquired absence of both cervix and uterus (ICD-10) Family History Mother Family history of diabetes mellitus Grandfather Family history of diabetes mellitus Father Family history of stroke Social History (Updated 01/27/25 @ 04:37 by Chika Anderson RN) Within the past year, how often did you have a drink containing alcohol: never Score interpretation: A score less than 3 is consistent with normal alcohol consumption. Smoking status: Current every day smoker Non-prescribed substance use: denies use Previous occupational history: Unemployed Known occupational exposures/hazards: No Highest level of school completed/degree received: high school graduate In a typical week, how many times do you talk on the telephone with family, friends, or neighbors: 3 or more times per week Little interest or pleasure in doing things: not at all Feeling down, depressed, or hopeless: not at all Gender Identity: female Meds Home Medications and Allergies Home Medications ?Medication ?Instructions ?Recorded ?Confirmed ?Type aspirin 81 mg tablet,delayed 81 mg PO DAILY 04/05/23 01/27/25 History release budesonide-formoterol HFA 160 2 puff inhalation BID 04/05/23 01/27/25 History mcg-4.5 mcg/actuation aerosol inhaler (Symbicort) carvedilol 12.5 mg tablet 12.5 mg PO BID 04/05/23 01/27/25 History empagliflozin 25 mg tablet 25 mg PO DAILY 04/05/23 01/27/25 History (Jardiance) gabapentin 600 mg tablet 600 mg PO TID 04/05/23 01/27/25 History insulin aspart U-100 100 unit/mL 1 sliding scale dose subcut 04/05/23 01/27/25 History (3 mL) subcutaneous pen (Novolog TIDWMEAL FlexPen U-100 Insulin aspart) insulin glargine 100 unit/mL (3 60 unit subcut QPM 04/05/23 01/27/25 History mL) subcutaneous pen (Lantus Solostar U-100 Insulin) losartan 100 mg tablet 100 mg PO DAILY 04/05/23 01/27/25 History pantoprazole 40 mg tablet,delayed 40 mg PO DAILY 04/05/23 01/27/25 History release potassium chloride 10 mEq 10 meq PO DAILY 04/05/23 01/27/25 History capsule,extended release rivaroxaban 20 mg tablet (Xarelto) 20 mg PO DAILY 04/05/23 01/27/25 History rosuvastatin 5 mg tablet 5 mg PO DAILY 04/05/23 01/27/25 History spironolactone 25 mg tablet 25 mg PO BID@0800,1200 04/05/23 01/27/25 History albuterol sulfate 90 mcg/actuation 2 inh inhalation Q4H PRN shortness 06/25/23 01/27/25 Rx aerosol inhaler of breath or wheezing #8.5 grams albuterol sulfate 2.5 mg/3 mL 2.5 mg (3 mL) inhalation Q6H PRN 09/16/23 01/27/25 Rx (0.083 %) solution for nebulization shortness of breath or wheezing #90 mL furosemide 20 mg tablet 20 mg PO DAILY 01/03/24 01/27/25 History paroxetine HCl 30 mg tablet 30 mg PO DAILY 10/03/24 01/27/25 History alcohol swabs (Alcohol Prep Pads) 1 pad topical .as directed 01/27/25 01/27/25 History blood glucose control, normal 01/27/25 01/27/25 History (True Metrix Level 2 solution) blood sugar diagnostic (True 01/27/25 01/27/25 History Metrix Glucose Test Strip) blood-glucose meter (True Metrix 01/27/25 01/27/25 History Glucose Meter) bupropion HCl 150 mg 24 hr tablet, 150 mg PO DAILY 01/27/25 01/27/25 History extended release calcium 500 mg (as 1 tab PO BID 01/27/25 01/27/25 History carbonate)-vitamin D3 10 mcg (400 unit) tablet cephalexin 500 mg capsule 500 mg PO TID 01/27/25 01/27/25 History cholecalciferol (vitamin D3) 50 50 mcg PO DAILY 01/27/25 01/27/25 History mcg (2,000 unit) tablet flash glucose sensor (FreeStyle 01/27/25 01/27/25 History Julisa 2 Sensor kit) insulin aspart U-100 100 unit/mL 15 - 20 unit subcut TIDWM 01/27/25 01/27/25 History (3 mL) subcutaneous pen (Novolog FlexPen U-100 Insulin aspart) lancets 33 gauge (TRUEplus Lancets) 01/27/25 01/27/25 History lancing device (TRUEdraw Lancing 01/27/25 01/27/25 History Device) pen needle, diabetic 32 gauge x 01/27/25 01/27/25 History (Sure Comfort Pen Needle) tiotropium bromide 2.5 2 puff inhalation DAILY 01/27/25 01/27/25 History mcg/actuation mist for inhalation (Spiriva Respimat) Allergies Allergy/AdvReac Type Severity Reaction Status Date / Time ciprofloxacin (From Cipro) AdvReac Intermediate Vomiting Verified 01/27/25 00:22 metronidazole (From Flagyl) AdvReac Intermediate Vomiting Verified 01/27/25 00:22 Penicillins AdvReac Intermediate Vomiting Verified 01/27/25 00:22 sulfamethoxazole (From AdvReac Intermediate Vomiting Verified 01/27/25 00:22 Bactrim) trimethoprim (From Bactrim) AdvReac Intermediate Vomiting Verified 01/27/25 00:22 Exam Narrative Exam Narrative: [pt is awake and alert. oriented to place, time and person HEENT: [place] conjunctiva and NL buccal mucosa Neck: Supple, no tenderness Endocrine: No Thyromegaly. Vascular: No JVD or carotid bruit. Lymphatic: No cervical lymphadenopathy. Chest: CTA no DTP. Heart RRR, no extra sound or murmur. Abd: Soft, no tenderness, no rebound and no rigidity. Increase abd girth therefore clinically I could not exclude the possibility of intra abd mass or organomegaly. LE: No cyanosis or clubbing, no varices or edema. Neuro: A A O. Nl speech, comprehension and attention. Nl and symetrical motor and tone examination through out. []] Constitutional Vital Signs, click to edit/add: Last Vital Signs Temp 97.7 F 01/27/25 08:00 Pulse 75 01/27/25 11:20 Resp 14 01/27/25 08:00 BP 112/65 01/27/25 08:00 Pulse Ox 93 L 01/27/25 10:28 O2 Del Method Room Air 01/27/25 10:28 Results Labs Labs: Short CBC 01/27/25 Range/Units 00:35 WBC 18.3 H (4.0-11.0) 10^3/uL Hgb 16.5 H (12.0-16.0) g/dL Hct 49.1 H (36.0-48.0) % Plt Count 322 (150-450) 10^3/uL BMP 01/27/25 00:35 Sodium 143 Potassium 3.2 L Chloride 103 Carbon Dioxide 28.8 BUN 7.0 Creatinine 0.70 Glucose 294 H Calcium 8.8 Liver Function 01/27/25 Range/Units 00:35 Total Bilirubin 0.7 (0.2-1.0) mg/dL AST 9 L (15-37) U/L ALT 12 L (14-59) U/L Alkaline Phosphatase 79 (46-116) U/L Albumin 3.1 L (3.4-5.0) g/dL Urine 01/27/25 Range/Units 01:51 Urine Color Lt. yellow (YELLOW) Urine Clarity Clear (CLEAR) Urine pH 5.5 (5.0-9.0) Ur Specific [place] <=1.005 A (1.005-1.025) Urine Protein Negative (NEG/TRACE) mg/dL Urine Glucose (UA) >=1000 A (NEGATIVE) mg/dL Assessment and Plan Assessment and Plan (1) Near syncope: (2) COPD (chronic obstructive pulmonary disease): (3) Atypical chest pain: (4) Leukocytosis: (5) Hypokalemia: (6) Noncompliance: (7) Tobacco abuse: Plan Near syncopal episode Blood pressure is on the low side. Patient is taking multiple blood pressure medications. This could have triggered the dizziness and near syncopal episode. Hold BP meds. Hold diuretics Rule out cardiac dysrhythmia. Started telemetry monitoring. Rule out valvular disease or cardiomyopathy. Requested echocardiogram. Rule out the possibility of primary IMPREGNATOR ELECTROLYTIC CAPACITORS insult. Requested CT head. IV fluid infusion Further needed diagnostic and therapeutic intervention will be determined based on the clinical progression and follow-up test result Chest pain reported in the emergency room department. Patient is unwilling to engage in any conversation this morning stating that she did not sleep all night long. Troponin is negative x 2. EKG does not show ST elevation or depression Patient does have multiple risk factors for CAD but no clinical evidence to suggest ACS at this time. History of A-fib. Currently patient is in sinus rhythm Continue home carvedilol and Xarelto. Diabetes Resume preadmission home medications including insulin. Patient had hemoglobin A1c at 11 in the past. Likely noncompliance. COPD, smoker. No exacerbation at this time. Counseled about tobacco addiction and the need to stop. Resume LABA and CSI Resume as needed short-acting beta agonist UTI. Start patient on ceftriaxone. Requested urine culture Increase risk for lung cancer given her smoking history. Recommend yearly low-dose radiation CAT scan of the chest to screen for lung cancer to be arranged by PCP and/or warehouse person. To be addressed in the outpatient setting. Chronic medical conditions not listed above, incidental findings seen on labs and imaging. These would need to be addressed. Could be addressed when time and condition are appropriate. Could be addressed in the outpatient setting by PCP collaboration with other needed outpatient providers.
--- NOTE | 2025-01-27 12:09 | CM.NOTE ---
Updated Dr. Szymanski that pt has home oxygen ordered for 2L NC continous.
[2025-01-27 12:30] LABS: Magnesium 1.8 mg/dL (1.8-2.4)
[2025-01-27 12:43] LABS: Thyroid Stimulating Hormone 1.549 uIU/mL (0.358-3.740)
--- NOTE | 2025-01-27 13:26 | SWNOTE1 ---
SW reviewed therapy note and spoke to physical therapist, no therapy needs at this time.
--- NOTE | 2025-01-27 13:38 | PC.NURSE ---
Dr. Szymanski notified of CT results
--- NOTE | 2025-01-27 14:03 | MR_ITS ---
The [address] [address] Patient Name: RODDY HORN MRN: [id number] date: 1960 Sex: F Assigned Patient Location: [place] Current Patient Location: [place] Accession/Order Number: [id number] Exam Date: 01/27/2025 15:00 Report Date: 01/27/2025 16:06 At the request of: JAMI MCCLELLAN MD Procedure: MR head/brain wo con MR head/brain wo con 01/27/2025 3:24 PM SIGN AND SYMPTOMS: ^Acute vs sub acute CVA, multiple syncopal episodes PROTOCOL: Multiplanar multisequence MR images of the brain without IV contrast COMPARISON: None. FINDINGS: Extra axial spaces: Age appropriate. Hemorrhage: None. Ventricular system: Within normal limits. Basal cisterns: Within normal limits and not effaced. Cerebral parenchyma: Periventricular and cerebral white matter T2 and FLAIR hyperintense signal is noted consistent with chronic microvascular ischemic change. Midline shift: None. Cerebellum: Within normal limits. Brainstem: T2 and FLAIR hyperintense signal is noted in the pontine tegmentum. OTHER: Calvarium: Normal marrow signal. Vascular system: Satisfactory flow voids within the anterior and posterior circulation. Visualized Paranasal sinuses: Within normal limits. Visualized Orbits: Within normal limits. Visualized upper cervical spine: Within normal limits. Sella and skull base: Within normal limits. MR/MR head/brain wo con IMPRESSION: No acute intracranial pathology. Chronic microvascular ischemic changes are noted. Impression dictated by: Heriberto Rich M.D. 01/27/2025 4:06 PM Dictation Location: [place] [address] Electronically authenticated by: [id number] Y Date: 01/27/2025 16:06
--- NOTE | 2025-01-27 17:45 | PC.NURSE ---
financial underwriter messaged Dr. Szymanski requesting something for a headache for patient. states he will order something
[2025-01-27] MEDS: ACETAMINOPHEN 325 MG TABLET 650 MG PO (18:17)
[2025-01-27] MEDS: CEFUROXIME AXETIL 250 MG TABLET 500 MG PO (22:07)
[2025-01-27] MEDS: INSULIN GLARGINE 300 UNIT/3 ML INSULN.PEN 60 UNIT SQ (22:08)
--- NOTE | 2025-01-27 23:01 | PC.NURSE ---
soft loose stool
[2025-01-28] VITALS (22 sets, daily range): BP systolic 108–133; BP diastolic 63–77; PULSE 59–86; TEMP 36.6–36.7; O2SAT 90–96
[2025-01-28] MEDS: ALBUTEROL SULFATE 2.5 MG/3 ML VIAL NEB IH ×4 (05:01→20:38)
[2025-01-28] MEDS: PANTOPRAZOLE SODIUM 40 MG TABLET.DR PO (05:35)
[2025-01-28] MEDS: GABAPENTIN 300 MG CAPSULE PO ×3 (05:35→20:33)
[2025-01-28 05:36] LABS: Hematocrit 45.2 % (36.0-48.0); Hemoglobin 14.8 g/dL (12.0-16.0); Mean Corpuscular HGB Conc 32.7 g/dL (29.9-35.2); Mean Corpuscular Hemoglobin 30.7 pg (26.7-34.0); Mean Corpuscular Volume 93.8 fL (81.0-99.0); Platelet Count 272 10^3/uL (150-450); Red Blood Count 4.82 10^6/uL (4.20-5.40); White Blood Count 14.9 10^3/uL (4.0-11.0)
[2025-01-28 05:47] LABS: Anion Gap 9.9; Blood Urea Nitrogen 9.0 mg/dL (7.0-18.0); Calcium 8.6 mg/dL (8.5-10.1); Carbon Dioxide 27.4 mmol/L (21.0-32.0); Chloride 110 mmol/L (98-107); Estimated GFR (African America >60 (>=60 mL/min/1.73m^2); Estimated GFR (Non-African Ame >60 (>=60 mL/min/1.73m^2); Glucose 182 mg/dL (74-106); Potassium 3.3 mmol/L (3.5-5.1); Sodium 144 mmol/L (136-145)
[2025-01-28] MEDS: INSULIN ASPART 300 UNIT/3 ML PEN SUBQ ×4 (08:38→20:33)
[2025-01-28] MEDS: CARVEDILOL 12.5 MG TABLET PO ×2 (08:39→20:33)
[2025-01-28] MEDS: ATORVASTATIN CALCIUM 20 MG TABLET PO (08:39)
[2025-01-28] MEDS: ASPIRIN 81 MG TABLET.DR PO (08:39)
[2025-01-28] MEDS: RIVAROXABAN 10 MG TABLET 20 MG PO (08:40)
[2025-01-28] MEDS: PAROXETINE HCL 20 MG TABLET 30 MG PO (08:40)
[2025-01-28] MEDS: CEFUROXIME AXETIL 250 MG TABLET 500 MG PO (08:40)
--- NOTE | 2025-01-28 08:40 | CM.NOTE ---
Rounds made with Dr. Szymanski, no discharge today, pt will change to inpatient d/t multi drug resistant UTI. SW aware of housing with pt at discharge and has spoken with pt.
[2025-01-28] MEDS: BUDESONIDE 0.5 MG/2 ML AMPULE NEB IH ×2 (11:05→20:38)
--- NOTE | 2025-01-28 14:45 | P.PN_ITS ---
Progress Note: Subjective Subjective Interval history: Patient is feeling better. No further episode of dizziness or syncope. No chest pain. No abdominal pain Exam Narrative Exam Narrative: [pt is awake and alert. oriented to place, time and person HEENT: [place] conjunctiva and NL buccal mucosa Neck: Supple, no tenderness Endocrine: No Thyromegaly. Vascular: No JVD or carotid bruit. Lymphatic: No cervical lymphadenopathy. Chest: CTA no DTP. Heart RRR, no extra sound or murmur. Abd: Soft, no tenderness, no rebound and no rigidity. Increase abd girth therefore clinically I could not exclude the possibility of intra abd mass or organomegaly. LE: No cyanosis or clubbing, no varices or edema. Neuro: A A O. Nl speech, comprehension and attention. Nl and symetrical motor and tone examination through out. []] Constitutional Vital Signs, click to edit/add: Last Vital Signs Temp 97.8 F 01/28/25 11:29 Pulse 83 01/28/25 14:00 Resp 16 01/28/25 11:29 BP 118/69 01/28/25 11:29 Pulse Ox 92 L 01/28/25 11:29 O2 Del Method Room Air 01/28/25 11:29 Progress Note: Objective Labs Labs: Short CBC 01/28/25 Range/Units 05:04 WBC 14.9 H (4.0-11.0) 10^3/uL Hgb 14.8 (12.0-16.0) g/dL Hct 45.2 (36.0-48.0) % Plt Count 272 (150-450) 10^3/uL BMP 01/28/25 05:04 Sodium 144 Potassium 3.3 L Chloride 110 H Carbon Dioxide 27.4 BUN 9.0 Creatinine 0.54 L Glucose 182 H Calcium 8.6 Progress Note: A&P Assessment and Plan (1) Near syncope: (2) COPD (chronic obstructive pulmonary disease): (3) Atypical chest pain: (4) Leukocytosis: (5) Hypokalemia: (6) Noncompliance: (7) Tobacco abuse: Plan Near syncopal episode Blood pressure is on the low side. Patient is taking multiple blood pressure medications. This could have triggered the dizziness and near syncopal episode. Hold BP meds. Hold diuretics Rule out cardiac dysrhythmia. Started telemetry monitoring. No dysrhythmia seen Rule out valvular disease or cardiomyopathy. Requested echocardiogram. Came back unremarkable. Hyperdynamic with ejection fraction at 70 to 75% no significant valvular disease Rule out the possibility of primary PATENT LEGAL ASSISTANT insult. Requested CT head. CT scan showed subacute, old infarct. MRI does not show an acute infarction. IV fluid infusion completed Further needed diagnostic and therapeutic intervention will be determined based on the clinical progression and follow-up test result Chest pain reported in the emergency room department. Patient is unwilling to engage in any conversation this morning stating that she did not sleep all night long. Troponin is negative x 2. EKG does not show ST elevation or depression Patient does have multiple risk factors for CAD but no clinical evidence to suggest ACS at this time. Patient will require elective ischemic evaluation. This will be arranged. History of A-fib. Currently patient is in sinus rhythm Continue home carvedilol and Xarelto. Diabetes Resume preadmission home medications including insulin. Patient had hemoglobin A1c at 11 in the past. Likely noncompliance. COPD, smoker. No exacerbation at this time. Counseled about tobacco addiction and the need to stop. Resume LABA and CSI Resume as needed short-acting beta agonist UTI. Start patient on ceftriaxone. Requested urine culture Culture from [place] showed that the bacteria is sensitive to ceftriaxone but resistant to the Keflex that she was discharged on. Increase risk for lung cancer given her smoking history. Recommend yearly low-dose radiation CAT scan of the chest to screen for lung cancer to be arranged by PCP and/or packer dried beef. To be addressed in the outpatient setting. Chronic medical conditions not listed above, incidental findings seen on labs and imaging. These would need to be addressed. Could be addressed when time and condition are appropriate. Could be addressed in the outpatient setting by PCP collaboration with other needed outpatient providers.
[2025-01-28] MEDS: POTASSIUM CHLORIDE 10 MEQ ER TABLET 20 MEQ PO (15:02)
--- NOTE | 2025-01-28 15:23 | SWNOTE1 ---
EJ stopped back in and spoke with pt. SW asked pt if we could call the places she has voiced she submitted applications to. Pt is in agreement. She stated the nurse at [facility] office assisted her with them. SW expressed to pt that once she is evicted, we do not want her to be homeless and want to assist with somewhere to go. SW asked which one was first on her list. She stated [facility], then [facility], then possibly going to fdc care at [facility]. SW spoek with her about fdc care. SW explained that if she went [facility], that means she would live there. That also means they would take her monthly income and she would get a limited amount, around $30.00 for her own spending. Pt voiced she is familiar with this as her is [facility] care at [place]. SW did ask pt if she were to go fdc at a nursing facility, would she be willing to stay there forever and live there. Pt stated NO, she would leave and she wants her own money. SW let pt know that SW will make some calls and let her know. Pt did voice she will sleep in a tent outside or she will go live with her nephew in [place], who is also homeless. EJ called [facility] and spoke to business editor, Lani. She did get pt's application online, but this application no longer the correct one. She will need patient to fill out the correct application. She stated someone is moving in the 01 of February and the march. If pt gets her application in soon, she will be at the top of the list. EJ requested Lani email the application to EJ. Lani did email the application to SW. EJ then called [facility] and spoke to Brandy. Brandy did receive pt's application. She stated at this time they do not have any lower bunks, only upper bunks. She is hopeful for something to open sooner to pt being evicted. Brandy is aware of the eviction and the date. They do plan on reaching out to pt closer to her eviction date. Brandy stated to encourage pt to call her on SaturdayFebruary 02. This will allow Brandy to go over various things and invite pt to come see the [facility]. EJ to let pt know. Brandy also voiced they are concerned of her eviction because she lives [facility]. She stated IF she does get evicted, then she will not be accepted at any other low income housing. SW to let the pt know this as well and will encourage pt to try and find the money to stay at [facility]. EJ then reached out to Rolando at [facility] where pt's is at. Rolando is familiar with pt. She stated we can send the referral, but she may not meet level of care for Medicaid to pay for her to stay at alf. Pt is independent with all ADL'S and IADL'S. EJ to send referral. EJ took patient the application for [facility] to pt. EJ advised that both places to get application, but she has to re-do the one from [facility]. EJ also explained to pt that IF she does get evicted from [facility], then she will NOT be able to get in to any low income housing, which includes [facility]. She voiced she is aware of this. EJ asked if she has tried to speak with her landlord about making payments or pay arrangements? Pt did not directly answer, besides calling the landlord a not nice person. Pt voiced she is going to ask the director of parks and recreation if she can do payments. EJ then asked if she had the landlords number. She stated her name is Faith and SW can call her. EJ took down the number. EJ advised pt that she needs to start filling out the application for [facility] and SW will be back to assist. EJ also let pt know she has to call Brandy at [facility] on Saturday as they are closed Saturday. Brandy will assist with any further information that is needed. EJ provided pt with phone number for [facility]. EJ let pt know that Rolando at [facility] does not feel she will meet level of care for Medicaid to pay for pt to be [facility] at [facility]. Pt voiced understanding. At this time pt will start filling out application. EJ called juan Cuevas's landlord. She is aware of the eviction. She stated pt has known about this for awhile and she has not paid her rent since September. Pt has been given several notices. EJ asked about potential payment plans? Faith stated pt will have to pay court fees, $140-$240, plus display coordinator fees $300-$350, and she owes $2,088.92. She will have to pay all that up front to stay. After court date of 02/16/25, she will have 10 days until eviction. SW to notify patient of this.
--- NOTE | 2025-01-28 16:17 | SWNOTE1 ---
SW stopped back in room and pt was working on application for [facility]. Many of the questions do ask financial background. Pt is completing best she can. SW to check back tomorrow.
[2025-01-29] VITALS (11 sets, daily range): BP systolic 107–132; BP diastolic 64–78; PULSE 59–85; TEMP 36.6; O2SAT 90–96
[2025-01-29] MEDS: ALBUTEROL SULFATE 2.5 MG/3 ML VIAL NEB IH ×2 (05:03→11:17)
[2025-01-29] MEDS: GABAPENTIN 300 MG CAPSULE PO (05:07)
[2025-01-29] MEDS: PANTOPRAZOLE SODIUM 40 MG TABLET.DR PO (05:07)
[2025-01-29] MEDS: INSULIN ASPART 300 UNIT/3 ML PEN SUBQ (08:10)
--- NOTE | 2025-01-29 08:10 | CM.NOTE ---
Rounds made with PCP, pt will discharge to home today. Pt will f/u with PCP, will schedule prior to pt discharging today. SW working with pt regarding housing.
[2025-01-29] MEDS: PAROXETINE HCL 20 MG TABLET 30 MG PO (08:11)
[2025-01-29] MEDS: RIVAROXABAN 10 MG TABLET 20 MG PO (08:11)
[2025-01-29] MEDS: CARVEDILOL 12.5 MG TABLET PO (08:12)
[2025-01-29] MEDS: ASPIRIN 81 MG TABLET.DR PO (08:12)
[2025-01-29] MEDS: ATORVASTATIN CALCIUM 20 MG TABLET PO (08:12)
--- NOTE | 2025-01-29 09:45 | P.DS_ITS ---
DS: Providers Provider Date of admission: 01/28/25 07:37 Primary care physician: Maira Rush NP Consults: 01/27/25 Physical Therapy Eval and Treat Routine Reason for consultation: weakness DS: Diagnosis Discharge Diagnosis (1) Near syncope: (2) COPD (chronic obstructive pulmonary disease): (3) Atypical chest pain: (4) Leukocytosis: (5) Hypokalemia: (6) Noncompliance: (7) Tobacco abuse: Plan As listed above, below and others that are not listed DS: Summary Hospital Course Hospital Course: Mrs. Dior is a 64-year-old female who came to the emergency room after she felt dizzy and almost passed out. Near syncopal episode Blood pressure is on the low side. Patient is taking multiple blood pressure medications. This could have triggered the dizziness and near syncopal episode. Hold BP meds. Hold diuretics Rule out cardiac dysrhythmia. Started telemetry monitoring. No dysrhythmia seen Rule out valvular disease or cardiomyopathy. Requested echocardiogram. Came back unremarkable. 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 Requested CT head. CT scan showed subacute, old infarct. MRI does not show an acute infarction. Patient will be discharged home on aspirin for secondary stroke prevention IV fluid infusion completed Further needed diagnostic and therapeutic intervention will be determined based on the clinical progression and follow-up test result. Could be done electively in the outpatient setting. Hypertension with ongoing borderline low blood pressure likely contributing to her syncopal episode. Continue Coreg for rate control Change losartan from 100 mg down to 25 mg daily. This may need to be discontinued in the outpatient setting if her blood pressure continues to be on the low side. Echocardiogram does not show cardiomyopathy. Risk of fluid overload is low. Given her borderline hypotension I will discontinue Aldactone and Lasix as well as potassium. Chest pain reported in the emergency room department. Patient is unwilling to engage in any conversation this morning stating that she did not sleep all night long. Troponin is negative x 2. EKG does not show ST elevation or depression Patient does have multiple risk factors for CAD but no clinical evidence to suggest ACS at this time. Patient will require elective ischemic evaluation. This will be arranged. History of A-fib. Currently patient is in sinus rhythm Continue home carvedilol and Xarelto. Diabetes Resume preadmission home medications including insulin. Patient had hemoglobin A1c at 11 in the past. Likely noncompliance. Continue diabetes management in the outpatient setting by PCP Patient will be instructed to follow the following Check your blood sugar 3 times a day before meals. Document these numbers on a blood glucose log and bring them with you to your follow-up appointment with your primary care doctor. Communicate with your primary care doctor or environmental management specialist if your blood sugar is under 100 or above 300 on 2 consecutive checks. Communicate with your primary care doctor or environmental management specialist if you have any questions about your diabetes medications. Signs of a low blood sugar include sweating, racing heart, dizziness and/or weakness. Check your blood sugar if you have any of the symptoms. COPD, smoker. No exacerbation at this time. Counseled about tobacco addiction and the need to stop. Resume LABA and CSI Resume as needed short-acting beta agonist UTI. Start patient on ceftriaxone. Requested urine culture Culture from [place] showed that the bacteria is sensitive to ceftriaxone but resistant to the Keflex that she was discharged on. Bacteria also is sensitive to Macrobid. We will discharge on Macrobid. Increase risk for lung cancer given her smoking history. Recommend yearly low-dose radiation CAT scan of the chest to screen for lung cancer to be arranged by PCP and/or washing machine assembler. To be addressed in the outpatient setting. Chronic medical conditions not listed above, incidental findings seen on labs and imaging. These would need to be addressed. Could be addressed when time and condition are appropriate. Could be addressed in the outpatient setting by PCP collaboration with other needed outpatient providers. Patient has multiple complex medical issues as listed above and others that are not listed. All appear to be stable. I do not have any clear or strong clinical justification to extend inpatient hospitalization. Patient however will require close and frequent monitoring as well as additional work-up, investigation and therapeutic intervention that could take place from this point on post discharge. That is to prevent relapse, decompensation, rehospitalization and other medical implications. I instructed patient to ask her primary care doctor to obtain [facility] record entirely to address abnormalities seen on labs and imaging that I have and have not addressed during this hospitalization, follow-up on pending blood work, imaging and pathology is if available and to follow-up on needed medical care in the outpatient setting. Time Spent with Patient Time attestation: Total time spent providing and/or coordinating discharge services: Time spent: greater than 30 minutes Exam Narrative Exam Narrative: [pt is awake and alert. oriented to place, time and person HEENT: [place] conjunctiva and NL buccal mucosa Neck: Supple, no tenderness Endocrine: No Thyromegaly. Vascular: No JVD or carotid bruit. Lymphatic: No cervical lymphadenopathy. Chest: CTA no DTP. Heart RRR, no extra sound or murmur. Abd: Soft, no tenderness, no rebound and no rigidity. Increase abd girth therefore clinically I could not exclude the possibility of intra abd mass or or ganomegaly. LE: No cyanosis or clubbing, no varices or edema. Neuro: A A O. Nl speech, comprehension and attention. Nl and symetrical motor and tone examination through out. []] Constitutional Vital Signs, click to edit/add: Last Vital Signs Temp 97.8 F 01/29/25 07:52 Pulse 65 01/29/25 08:00 Resp 16 01/29/25 07:52 BP 130/78 01/29/25 07:47 Pulse Ox 94 L 01/29/25 07:52 O2 Del Method Room Air 01/29/25 07:52 DS: Data Data Completed and Pending Labs on day of discharge: Labs from last 24 hours 01/29/25 01/28/25 01/28/25 07:49 20:32 16:15 POC Glucose 254 H 177 H 345 H 01/28/25 11:31 POC Glucose 184 H Discharge Plan Discharge Disposition: Home, Self-Care Condition: Good Discharge Medications: New losartan 25 mg tablet 25 mg PO DAILY Qty: 30 2RF nitrofurantoin monohyd/m-cryst [Macrobid] 100 mg capsule 100 mg PO BID 5 Days Qty: 10 0RF Rx Instructions: must administer with a meal/food Continued albuterol sulfate 90 mcg/actuation HFA aerosol inhaler 2 inh inhalation Q4H PRN (Reason: shortness of breath or wheezing) Qty: 8.5 0RF albuterol sulfate 2.5 mg /3 mL (0.083 %) solution for nebulization 2.5 mg inhalation Q6H PRN (Reason: shortness of breath or wheezing) Qty: 90 0RF (DME) blood-glucose meter [True Metrix Glucose Meter] Misc MISCELLANEOUS (DME) True Metrix Glucose Test Strip Strip MISCELLANEOUS alcohol swabs [Alcohol Prep Pads] Pads, Medicated 1 pad TOPICAL .as directed bupropion HCl 150 mg tablet extended release 24 hr 150 mg PO DAILY (DME) lancing device [TRUEdraw Lancing Device[place] [facility] [place] (DME) blood glucose control, normal [True Metrix Level 2] Solution MISCELLANEOUS calcium carbonate-vitamin D3 500 mg-10 mcg (400 unit) tablet 1 tab PO BID cholecalciferol (vitamin D3) 50 mcg (2,000 unit) tablet 50 mcg PO DAILY (DME) pen needle, diabetic [Sure Comfort Pen Needle] 32 gauge x 5/32 needle MISCELLANEOUS Spiriva Respimat 2.5 mcg/actuation mist 2 puff INHALATION DAILY (DME) lancets [TRUEplus Lancets] 33 gauge [facility] [place] MISCELLANEOUS (DME) FreeStyle Julisa 2 Sensor Kit MISCELLANEOUS aspirin 81 mg tablet,delayed release (DR/EC) 81 mg PO DAILY budesonide-formoterol [Symbicort] 160-4.5 mcg/actuation HFA aerosol inhaler 2 puff INHALATION BID carvedilol 12.5 mg tablet 12.5 mg PO BID Jardiance 25 mg tablet 25 mg PO DAILY insulin aspart U-100 [Novolog FlexPen U-100 Insulin] 100 unit/mL (3 mL) insulin pen 1 sliding scale dose SUBCUT TIDWMEAL Patient Comments: INJECT 15-18-20 UNITS SUBCUTANEOUSLY TO MEAL SIZE PLUS ISSUED SLIDING SCALE *EXPECTED DAILY DOSE: 70 UNITS* insulin glargine [Lantus Solostar U-100 Insulin] 100 unit/mL (3 mL) insulin pen 60 unit SUBCUT QPM pantoprazole 40 mg tablet,delayed release (DR/EC) 40 mg PO DAILY Xarelto 20 mg tablet 20 mg PO DAILY rosuvastatin 5 mg tablet 5 mg PO DAILY paroxetine HCl 30 mg tablet 30 mg PO DAILY Changed gabapentin 600 mg tablet 600 mg PO BID Qty: 0 0RF insulin aspart U-100 [Novolog FlexPen U-100 Insulin] 100 unit/mL (3 mL) insulin pen 8 unit subcut TIDWM Qty: 0 0RF Rx Instructions: 8 units 3 times a day with meals Discontinued furosemide 20 mg tablet 20 mg PO DAILY cephalexin 500 mg capsule 500 mg PO TID Rx Instructions: 01/22/25-01/28/25 losartan 100 mg tablet 100 mg PO DAILY potassium chloride 10 mEq capsule, extended release 10 meq PO DAILY spironolactone 25 mg tablet 25 mg PO BID@0800,1200 Print Language: Romanian Activity Restrictions/Additional Instructions: I may not have addressed or treated all of your medical illnesses or the abn ormal blood work or imaging studies during this hospitalization. Please ask your primary care provider to obtain [facility] records entirely to follow up on all of the abnormal physical, laboratory, and imaging findings that I have not addressed. Please return back to the emergency room or seek medical attention if your symptoms worsen or return. Check your blood sugar 3 times a day before meals. Document these numbers on a blood glucose log and bring them with you to your follow-up appointment with your primary care doctor. Communicate with your primary care doctor or environmental management specialist if your blood sugar is under 100 or above 300 on 2 consecutive checks. Communicate with your primary care doctor or environmental management specialist if you have any questions about your diabetes medications. Signs of a low blood sugar include sweating, racing heart, dizziness and/or weakness. Check your blood sugar if you have any of the symptoms. Discharging you from [facility] does not mean that your medical care ends here and now. You may still need additional monitoring, work up, investigation, and treatment plan to be handled from this point on by out patient providers including your primary care provider and specialists. For any medication question, please contact your retail pharmacist or your primary care provider. Thank you. 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 Forms: Portal Instructions Referrals: Kathy Huston MD [Physician, Cardiology] Maira Rush NP [Primary Care Provider, Family Practice]
--- NOTE | 2025-01-29 10:14 | SWNOTE1 ---
EJ stopped in to see pt. Pt had completed most of the application for [facility]. SW assisted with the last few questions. Pt completed the whole application. Application sent to by email to Lani at [facility]. EJ advised pt that Lani may call her with further questions. EJ asked pt if she had a ride home. She stated her neighbor will be picking her up.
[2025-01-29] MEDS: BUDESONIDE 0.5 MG/2 ML AMPULE NEB IH (11:17)
--- NOTE | 2025-02-02 08:50 | PC.NURSE ---
Follow up appt. with Maira Rush NP on Sat. 02/10 @ 2:30pm [phone]
--- NOTE | 2025-02-02 14:59 | CM.DCFOLLOWU ---
Person spoke with:Emergency Contact Gladis Dior How are you feeling? How is your pain? Did you understand your discharge instructions? Do you have any questions about your discharge instructions? Were you given any prescriptions at discharge? Were you able to get your prescriptions filled? Do you understand how to take your medications as ordered? Do you have any questions about your follow up appointment and do you plan to keep your follow up appointment? Is there anything else that you would like to discuss? Questions/Comments/Concerns/Other: States she has not seen Denae but would give her the appointment time.
== END 2025-01-29 11:27 | disposition home or self-care (01) | DRG 463 ==
LOC: ER 03:49 → MS 04:31
PROVIDERS: Admitting Provider Internal Medicine; Emergency Provider Emergency Medicine; PCP Nurse Practitioner; Visit Provider Internal Medicine
DX: N39.0 Urinary tract infection, site not specified (principal); E87.6 Hypokalemia; R55 Syncope and collapse; J44.9 Chronic obstructive pulmonary disease, unspecified; R07.89 Other chest pain; F17.210 Nicotine dependence, cigarettes, uncomplicated; D72.829 Elevated white blood cell count, unspecified; I48.0 Paroxysmal atrial fibrillation; Z79.01 Long term (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 of anticoagulants; Z79.4 Long term (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; I10 Essential (primary) hypertension; Z87.440 Personal history of urinary (tract) infections; Z79.82 Long term (current) use of aspirin; Z79.84 Long term (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 of oral hypoglycemic drugs; Z86.16 Personal history of COVID-19; Z87.01 Personal history of pneumonia (recurrent); E78.5 Hyperlipidemia, unspecified; F32.A Depression, unspecified; Z90.49 Acquired absence of other specified parts of digestive tract; Z90.710 Acquired absence of both cervix and uterus; E11.65 Type 2 diabetes mellitus with hyperglycemia
CPT/HCPCS: 36415; 70450; 70551; 71045; 80048; 80053; 81001; 82948; 83036; 83605; 83735; 84100; 84443; 84484; 85007; 85027; 85610; 93005; 93306; 94640; 96361; 96365; 97161; 99285; G0378; J0456; J0696

== ENCOUNTER 2025-02-12 11:28 | Emergency (ER) | payer OTHER, SELFPAY ==
[2025-02-12 11:31] VITALS: BP 116/84; PULSE 112; TEMP 36.8; O2SAT 97; BMI 25.8
--- NOTE | 2025-02-12 11:35 | ECG_ITS ---
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: : 1960 Requested By: RAMESH WILD Order Number: [id number] Reading MD: MICHAEL FORTUNE Measurements Intervals [place] Rate: 103 P: 57 TX: 154 QRS: -48 QRSD: 72 T: 90 QT: 342 QTc: 402 Interpretive Statements 1120 Sinus tachycardia 3134 Anterior myocardial infarction, age undetermined 3633 Inferior myocardial infarction, probably old 6220 Possible left atrial enlargement 8102 Low QRS voltage in chest leads 9150 abnormal ECG Compared to ECG 01/27/2025 00:15:30 Low QRS voltage now present Sinus bradycardia no longer present Possible ischemia no longer present Left-axis deviation no longer present Myocardial infarct finding still present Electronically Signed On 02-15-2025 16:41:49 EDT by MICHAEL FORTUNE
--- OUTSIDE RECORDS SUMMARY | 2025-02-12 11:45 | XMS_ITS | CCD ---
Author Organization [facility] CliniSyri Care Team Providers Care Camera Tuning Engineer Name Role Phone PHYSICIAN, DEFAULT Admitting Unavailable PHYSICIAN, DEFAULT Attending Unavailable AICHHOLZ, MAIRA Primary Care Unavailable PHYSICIAN, DEFAULT Admitting Unavailable PHYSICIAN, DEFAULT Attending Unavailable AICHHOLZ, MAIRA Primary Care Unavailable AICHHOLZ, WETLAND SCIENTIST MAIRA Primary Care Unavailable SACHA MONTANO Admitting Unavailable MARILEE .KIAN Consulting Unavailabl e SACHA MONTANO Attending Unavailable Robert Hart Consulting Unavailable HANNAH TOVAR Admitting Unavailable AICHHOLZ, WETLAND SCIENTIST MAIRA Primary Care Unavailable HANNAH TOVAR Attending Unavailable HANNAH TOVAR Consulting Unavailable AICHHOLZ, WETLAND SCIENTIST MAIRA Consulting Unavailable AICHHOLZ, WETLAND SCIENTIST MAIRA Primary Care Unavailable AICHHOLZ, WETLAND SCIENTIST MAIRA Admitting Unavailable AICHHOLZ, WETLAND SCIENTIST MAIRA Attending Unavailable AICHHOLZ, WETLAND SCIENTIST MAIRA Attending Unavailable AICHHOLZ, WETLAND SCIENTIST MAIRA Consulting Unavailable AICHHOLZ, WETLAND SCIENTIST MAIRA Primary Care Unavailable AICHHOLZ, WETLAND SCIENTIST MAIRA Admitting Unavailable Robert Hart Consulting Unavailable AICHHOLZ, WETLAND SCIENTIST MAIRA Attending Unavailable AICHHOLZ, WETLAND SCIENTIST MAIRA Consulting Unavailable AICHHOLZ, WETLAND SCIENTIST MAIRA Primary Care Unavailable AICHHOLZ, WETLAND SCIENTIST MAIRA Admitting Unavailable DR CORINE ANGELA V Consulting Unavailable AICHHOLZ, WETLAND SCIENTIST MAIRA Primary Care Unavailable AICHHOLZ, WETLAND SCIENTIST MAIRA Admitting Unavailable AICHHOLZ, WETLAND SCIENTIST MAIRA Attending Unavailable AICHHOLZ, WETLAND SCIENTIST MAIRA Consulting Unavailable DR TERI MAURO Admitting Unavailable AICHHOLZ, WETLAND SCIENTIST MAIRA Primary Care Unavailable DR TERI MAURO Attending Unavailable DR TERI MAURO Consulting Unavailable DR CORINE ANGELA V Consulting Unavailable DR BRANDON MCFARLANE Consulting Unavailable DR NEHA GATICA Consulting Unavailable YECENIA MONTERO Consulting Unavailable Aichholz FITNESS AND WELLNESS DIRECTOR, Maira Unavailable Loc TALBERT, Brandon Primary Care Provider CHAPITO DAMICO Referring Unavailable AICHHOLZ, MAIRA J Primary Care Unavailable [employer] FITNESS AND WELLNESS DIRECTOR, Maira Unavailable [employer] FITNESS AND WELLNESS DIRECTOR, Maira Unavailable CARROL SWENSON Attending Unavailable Chandrika Danielson MA Unavailable Pilar [facility], Lilian Unavailable AICHHOLZ, MAIRA Attending Unavailable AICHHOLZ, [...] sources) Ciprofloxacin Drug Allergy 10-11-19 12 [facility] Repository (2 sources) metroNIDAZOLE Drug Allergy 10-11-19 12 [facility] (6 sources) Penicillins; Translations: [PENICILLINS] Drug allergy (disorder) 10-11-19 12 [facility] Rep[facility] (2 sources) Sulfamethoxazole / Trimethoprim Drug Allergy 10-11-19 12 [facility] Repository (20 sources) Ciprofloxacin; Translations: [CIPROFLOXACIN] Drug Allergy 05-21-20 14 GI intolerance [facility] (20 sources) metroNIDAZOLE; Translations: [METRONIDAZOLE] Drug Allergy 05-21-20 14 GI intolerance [facility] (20 sources) Penicillins Drug Allergy 06-29-19 24 GI intolerance [facility] (20 sources) Sulfamethoxazole Allergy to substance 06-29-19 24 GI intolerance [facility] (20 sources) Trimethoprim Drug Allergy 06-29-19 24 GI intolerance [facility] (4 sources) Sulfamethoxazole / Trimethoprim; [...] 40 capsule 10/06/2024 10/16/2024 Active Continuous Glucose Offset Second Press Operator (FreeStyle Julisa 2 [place]) device (20 sources) Start: 04-29-2024 Continuous Glu cose Offset Second Press Operator (FreeStyle Julisa 2 [place]) device Indications: Type 2 diabetes mellitus with hyperglycemia, with long-term current use of insulin ([facility]) USE DIRECTED 1 each 04/29/2024 Active Start: 04-29-2024 Continuous Glu cose Offset Second Press Operator (FreeStyle Julisa 2 [place]) device Indications: Type 2 diabetes mellitus with hyperglycemia, with long-term current use of insulin (CMS/HCC) USE DIRECTED 1 each 04/29/2024 Active Start: 04-27-2024 End: 04-27-2025 Continuous Glucose Offset Second Press Operator (FreeStyle Julisa 2 [place]) device Indications: Type 2 diabetes mellitus with hyperglycemia, with long-term current use of insulin ([facility]) 1 kit every 14 (fourteen) days 1 each 1 04/27/2024 04/27/2025 Active Start: 04-27-2024 End: 04-27-2025 Continuous Glucose Offset Second Press Operator (FreeStyle Julisa 2 [place]) device Indications: Type 2 diabetes mellitus with hyperglycemia, with long-term current use of insulin ([facility]) 1 kit every 14 (fourteen) days 1 each 1 04/27/2024 04/27/2025 Active Start: 01-26-2024 End: 05-06-2024 Continuous Glucose Offset Second Press Operator (FreeStyle Julisa 2 [place]) device 01/26/2024 05/06/2024 Discontinued (Therapy completed) Start: 01-26-2024 Continuous Glu cose Offset Second Press Operator (FreeStyle Julisa 2 [place]) device 01/26/2024 Active Continuous Glucose Sensor (FreeStyle Julisa 2 Sensor) [facility] (20 sources) Start: 11-04-2024 Continuous Glu cose Sensor (FreeStyle Julisa 2 Sensor) misc Indications: Type 2 diabetes mellitus with hyperglycemia, with long-term current use of insulin ([facility]) USE TO MONITOR BLOOD SUGAR DIRECTED. CHANGE SENSOR EVERY 14 DAYS. 2 each 11/04/2024 Active Start: 04-22-2024 Continuous Glu cose Sensor (FreeStyle Julisa 2 Sensor) misc Indications: Type 2 diabetes mellitus with hyperglycemia, with long-term current use of insulin ([facility]) 1 kit every 14 (fourteen) days 6 each 1 04/22/2024 Active Start: 02-07-2024 End: 05-06-2024 Continuous Glucose Sensor (F reeStyle Julisa 2 Sensor) misc 02/07/2024 05/06/2024 Discontinued (Therapy completed) Start: 02-07-2024 Continuous Glu cose Sensor (FreeStyle Julisa 2 Sensor) [facility] 02/07/2024 Active empagliflozin 25 mg oral tablet (20 sources) Sodium-Glucose Cotransporter 2 Inhibitor Start: 01-16-2025 End: 02-15-2025 take 1 tablet by mouth once daily empagliflozin (Jardiance) 25 MG Indications: Type 2 diabetes mellitus with diabetic neuropathy, with long-term current use of insulin ([facility]) Take 1 tablet (25 mg) by mouth Daily 30 tablet 2 01/16/2025 02/15/2025 Active Start: 06-24-2023 End: 10-18-2024 take 1 tablet by mouth once daily empagliflozin (Jardiance) 25 MG Indications: Type 2 diabetes mellitus with diabetic neuropathy, with long-term current use of insulin ([facility]) Take 1 tablet (25 mg) by [...] hyperglycemia, with long-term current use of insulin ([facility]) INJECT 15-18-20 UNITS SUBCUTANEOUSLY TO MEAL [...] dizziness 02/24/2024 04/22/2024 Discontinued (Therapy completed) nystatin 595711 unt/ml topical cream (5 sources) Polyene Antifungal Start: 10-14-2024 End: 10-28-2024 nystatin (Mycostatin) cream Indications: Gill rash of groin Apply topically in the morning and before bedtime. Do all this for 14 days. 60 g 10/14/2024 10/28/2024 Active nystatin [id number] unt/ml / triamcinolone acetonide 1 mg/ml topical [...] 05-19-2024 02-25-2024 Episodic Other aftercare (1 source) 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 aspirin; Translations: [CARE HOME CURRENT USE OF ASPIRIN] Onset: 06-11-2022 Episodic Other aftercare (2 sources) retirement (current) use of insulin; Translations: [SCREW SUPERVISOR CURRENT USE OF INSULIN] Onset: 06-11-2022 Episodic Other aftercare (1 source) Other moth exterminator (current) drug therapy; Translations: [OTH SCREW SUPERVISOR CURRENT DRUG THERAPY] Onset: 06-11-2022 Episodic Other aftercare (1 source) 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 anticoagulants; Translations: [SCREW SUPERVISOR CURRNT USE ANTICOAGULANTS] Onset: 11-27-2021 Episodic Other aftercare (20 sources) Long-term current use of insulin; Translations: [retirement (current) use of insulin] Onset: 06-09-2024 04-21-2024 [...] SERUMon 01-15-2025 BETAHYDROXYBUTYRATE 1.14 mmol/L High 0.02-0.27 [facility] Comment on above: Performed By: #### [place], [address]-1, CBCA #### [facility] ([id number]) [address] [place] [address], [place] [address] BEDSIDE GLUCOSEon 01-15-2025 Glucose [Mass/Vol] 275 mg/dL High 65-[address] [facility] Comment on above: Performed By: #### C TUSHAR, , CBCA #### [facility] ([id number]) [address] [place] [address] BLOOD GAS, VENOUSon 01-16-20 25 BASE,EXCESS 4.0 mmol/L High 0.0-2.[address] [facility] Comment on above: Performed By: #### C TUSHAR, , CBCA #### [facility] ([id number]) [address] [place] [address] HCO3 (Bld) [Moles/Vol] 31.2 mmol/L High 20.0-24.0 [facility] Comment on above: Performed By: #### Casey FINLEY, , CBCA #### [facility] ([id number]) [address] [place] [address] INSP. O2 CONC. 21 % Normal [facility] Comment on above: Performed By: #### Casey FINLEY, , CBCA #### [facility] ([id number]) [address] [place] [address] Oxygen saturation in Blood 64.0 % Normal [facility] Comment on above: Performed By: #### Casey FINLEY , CBCA #### [facility] ([id number]) [address] [place] [address] PCO2 VENOUS 55.4 mmHg High 35.0-50.[address] [facility] Comment on above: Performed By: #### Casey FINLEY, , CBCA #### [facility] ([id number]) [address] [place] [address] PH VENOUS 7.359 Normal 7.320-7.[address] [facility] Comment on above: Performed By: #### C TUSHAR, , CBCA #### [facility] ([id number]) [address] [place] [address] PO2 VENOUS 35 mmHg Normal 30-[address] [facility] Comment on above: Performed By: #### C TUSHAR, , CBCA #### [facility] ([id number]) [address] [place] [address] POC MARGIE'S TEST N/A Normal [facility] Comment on above: Performed By: #### C TUSHAR, , CBCA #### [facility] ([id number]) [address] [place] [address] SAMPLE SITE N/A Normal [facility] Comment on above: Performed By: #### C TUSHAR, , CBCA #### [facility] ([id number]) [address] [place] [address] SAMPLE TYPE VENOUS Normal [facility] Comment on above: Performed By: #### C TUSHAR, , CBCA #### [facility] ([id number]) [address] [place] [address] SOURCE OF OXYGEN Room Air Normal [facility] Comment on above: Performed By: #### C TUSHAR, , CBCA #### [facility] ([id number]) [address] [place] [address] C-REACTIVE PROTEINon 025 CRP [Mass/Vol] mg/L Normal <=0.[address] [facility] Comment on above: Performed By: #### C RP #### [facility] ([facility]) [address] [place] [address] VIR CBC WITH AUTO DIFFERENTIALon 01-15-2025 BASOPHILS ABSOLUTE COUNT (10*3/UL) BY AUTOMATED COUNT 0.1 10*3/uL Normal 0.0-0.[address] [facility] Comment on above: Performed By: #### C BCA #### [facility] ([address] [address] VIR BASOPHILS RELATIVE PERCENT BY AUTOMATED COUNT 0.6 % Normal [facility] Comment on above: Performed By: #### C BCA #### [facility] ([address] [address] VIR CELLAVISION DIFFERENTIAL TYPE AUTOMATED DIFFERENTIAL Normal [facility] Comment on above: Performed By: #### C BCA #### [facility] ([address] [address] VIR Eosinophils (Bld) [#/Vol] 0.1 10*3/uL Normal 0.0-0.[address] [facility] Comment on above: Performed By: #### C BCA #### [facility] ([address] [address] VIR EOSINOPHILS RELATIVE PERCENT BY AUTOMATED COUNT 0.7 % Normal [facility] Comment on above: Performed By: #### C BCA #### [facility] ([address] [address] VIR Erythrocyte distribution width (RBC) [Ratio] 14.1 % Normal 11.5-[address] [facility] Comment on above: Performed By: #### C BCA #### [facility] ([address] [address] VIR Hematocrit (Bld) [Volume fraction] 48.9 % High 35-[address] [facility] Comment on above: Performed By: #### C BCA #### [facility] ([address] [address] VIR Hemoglobin (Bld) [Mass/Vol] 16.8 g/dL High 11.7-15.[address] [facility] Comment on above: Performed By: #### C BCA #### [facility] ([address] [address] VIR LYMPHOCYTES ABSOLUTE COUNT (10*3/UL) BY AUTOMATED COUNT 2.1 10*3/uL Normal 1.0-3.[address] [facility] Comment on above: Performed By: #### C BCA #### [facility] ([address] [address] VIR LYMPHOCYTES RELATIVE PERCENT BY AUTOMATED COUNT 23.8 % Normal [facility] Comment on above: Performed By: #### C BCA #### [facility] ([address] [address] VIR MCH (RBC) [Entitic mass] 30.7 pg Normal 27-[address] [facility] Comment on above: Performed By: #### C BCA #### [facility] ([address] [address] VIR MCHC (RBC) [Mass/Vol] 34.4 g/dL Normal 32-36 [facility] Comment on above: Performed By: #### C BCA #### [facility] ([address] [address] VIR MCV (RBC) [Entitic vol] 89 fL Normal 80-100 [facility] Comment on above: Performed By: #### C BCA #### [facility] ([address] [place] [address] VIR MONOCYTES ABSOLUTE COUNT (10*3/UL) BY AUTOMATED COUNT 0.6 10*3/uL Normal 0.0-0.[address] [facility] Comment on above: Performed By: #### C BCA #### [facility] ([address] [address] VIR MONOCYTES RELATIVE PERCENT BY AUTOMATED COUNT 7.1 % Normal [facility] Comment on above: Performed By: #### C BCA #### [facility] ([address] [place] [address] VIR NEUTROPHILS ABSOLUTE COUNT BY AUTOMATED COUNT 5.9 10*3/uL Normal 1.5-6.[address] [facility] Comment on above: Performed By: #### C BCA #### [facility] ([address] [place] [address] VIR NEUTROPHILS RELATIVE PERCENT BY AUTOMATED COUNT 67.8 % Normal [facility] Comment on above: Performed By: #### C BCA #### [facility] ([address] [place] [address] VIR Platelet mean volume (Bld) [Entitic vol] 8.8 fL Normal 7-[address] [facility] Comment on above: Performed By: #### C BCA #### [facility] ([address] [place] [address] VIR Platelets (Bld) [#/Vol] 311 10*3/uL Normal 150-[address] [facility] Comment on above: Performed By: #### C BCA #### [facility] ([address] [place] [address] VIR RBC COUNT 5.47 X10E12/L High 3.8-5.[address] [facility] Comment on above: Performed By: #### C BCA #### [facility] ([address] [place] [address] VIR WBC (Bld) [#/Vol] 8.7 10*3/uL Normal 4-[address] [facility] Comment on above: Performed By: #### C BCA #### [facility] ([address] [place] [address] VIR COMPREHENSIVE METABOLIC PANE Blayne 01-15-2025 Albumin [Mass/Vol] 3.3 g/dL Normal 3.2-5.[address] [facility] Comment on above: Performed By: #### C MP #### [facility] ([facility] [address] [place] [address] VIR ALP [Catalytic activity/Vol] 83 U/L Normal 39-[address] [facility] Comment on above: Performed By: #### C MP #### [facility] ([place] [address] [place] [address] VIR ALT [Catalytic activity/Vol] 13 U/L Normal <=[address] [facility] Comment on above: Performed By: #### C MP #### [facility] ([place] [address] [place] [address] VIR Anion gap [Moles/Vol] 10 mmol/L Normal 5-15 [facility] Comment on above: Performed By: #### C MP #### [facility] ([place] [address] [place] [address] VIR AST [Catalytic activity/Vol] 15 U/L Normal <=[address] [facility] Comment on above: Performed By: #### C MP #### [facility] ([place] [address] [place] [address] VIR Bilirubin [Mass/Vol] 0.6 mg/dL Normal 0.3-1.2 [facility] Comment on above: Performed By: #### C MP #### [facility] ([place] [address] [place] [address] VIR Calcium [Mass/Vol] 8.8 mg/dL Normal 8.5-10.[address] [facility] Comment on above: Performed By: #### C MP #### [facility] ([place] [address] [place] [address] VIR Chloride [Moles/Vol] 97 mmol/L Low 98-109 [facility] Comment on above: Performed By: #### C MP #### [facility] ([place] [address] [place] [address] VIR CO2 [Moles/Vol] 29 mmol/L Normal 22-[address] [facility] Comment on above: Performed By: #### C MP #### [facility] ([address] [address] VIR Creatinine [Mass/Vol] 0.73 mg/dL Normal 0.40-1.00 [facility] Comment on above: Result Comment: METH OD TRACEABLE TO IDMS STANDARD Performed By: #### C MP #### [facility] ([address] [address] VIR EGFR (CKD-EPI) NON-RACE DEPENDENT >^90 Normal >=[address] [facility] Comment on above: Result Comment: eGFR not reported due to non-numeric value for Creatinine. Reported eGFR is based on the CKD-EPI 2020 equation that does not use a race coefficient. Performed By: #### C MP #### [facility] ([address] [address] VIR Glucose [Mass/Vol] 369 mg/dL High 65-[address] [facility] Comment on above: Performed By: #### C MP #### [facility] ([address] [address] VIR Potassium [Moles/Vol] 3.1 mmol/L Low 3.5-5.0 [facility] Comment on above: Performed By: #### C MP #### [facility] ([address] [address] VIR Protein [Mass/Vol] 6.4 g/dL Normal 6.0-8.[address] [facility] Comment on above: Performed By: #### C MP #### [facility] ([address] [address] VIR Sodium [Moles/Vol] 136 mmol/L Normal 134-[address] [facility] Comment on above: Performed By: #### C MP #### [facility] ([facility]) [address] [place] [address] [place] [address] VIR Urea nitrogen [Mass/Vol] 9 mg/dL Normal 5-[address] [facility] Comment on above: Performed By: #### C TUSHAR #### [facility] ([facility]) [address] [place], [place] [address]. [place] [address]RAIN WO CONT[address] CT BRAIN [...] Rowley MD on 01/15/2025 4:29 PM Normal [facility] D-DIMERon 01-15-2025 D DIMER <^150 Normal 1-[address] [facility] Comment [...] or worsen. Performed By: #### C TUSHAR, 35852-4, CBCA #### [facility] ([id number]) [address] [place] [address], [place] [address] DRUG SCREEN, URINEon 025 AMPHETAMINE/METHAMP Negative Normal Negative [facility] Comment on above: Result Comment: AMPH /METH screening cut off = 1000 ng/mL Performed By: #### C TUSHAR, , CBCA #### [facility] ([id number]) [address] [place] [address] BARBITURATES Negative Normal Negative [facility] Comment on above: Result Comment: Rupa iturates screening cut off value = 200 ng/mL Performed By: #### C TUSHAR, , CBCA #### [facility] ([id number]) [address] [place] [address] BENZODIAZEPINES Negative Normal Negative [facility] Comment on above: Result Comment: Leroy odiazepines screening cut off value = 200 ng/mL Performed By: #### C TUSHAR, , CBCA #### [facility] ([id number]) [address] [place] [address] CANNABINOIDS Negative Normal Negative [facility] Comment on above: Result Comment: Shanice abinoids/THC screening cut off value = 50 ng/mL Performed By: #### C TUSHAR, , CBCA #### [facility] ([id number]) [address] [place] [address] COCAINE METABOLITE Negative Normal Negative [facility] Comment on above: Result Comment: Coca ine screening cut off value = 300 ng/mL Performed By: #### C TUSHAR, , CBCA #### [facility] ([id number]) [address] [place] [address] ECSTASY Negative Normal Negative [facility] Comment on above: Result Comment: Ecst asy screening cut off value = 500 ng/mL Performed By: #### C TUSHAR, , CBCA #### [facility] ([id number]) [address] [place] [address] METHADONE Negative Normal Negative [facility] Comment on above: Result Comment: Meth adone screening cut off value = 300 ng/mL. Performed By: #### C TUSHAR, , CBCA #### [facility] ([id number]) [address] [place] [address] OPIATES Negative Normal Negative [facility] Comment on above: Result Comment: Opia ashley screening cut off value = 300 ng/mL This test is used for the detection of codeine, hydrocodone (>1000 ng/mL), morphine and hydromorphone (>900 ng/mL) in urine. Performed By: #### C TUSHAR, 02959-5, CBCA #### [facility] ([id number]) [address] [place] [address] OXYCODONE Negative Normal Negative [facility] Comment on above: Result Comment: Oxyc odone screening cut off value = 300 ng/mL This test is used for the detection of oxycodone and oxymorphone in urine. Performed By: #### C TUSHAR, 54684-6, CBCA #### [facility] ([id number]) [address] [place] [address] PHENCYCLIDINE Negative Normal Negative [facility] Comment on above: Result Comment: Phen cyclidine screening cut off value = 25 ng/mL Performed By: #### C TUSHAR, , CBCA #### [facility] ([id number]) [address] [place] [address] ETHANOLon 01-15-2025 Ethanol [Mass/Vol] mg/dL Normal <=0.[address] [facility] Comment on above: Result Comment: This report is intended for use in clinical monitoring or management of patients. Performed By: #### A LCO #### [facility] ([facility]) [address] [place] [address] VIR LACTATE W/ REFLEXon 01-16-20 25 LACTATE W/REFLEX 1.1 mmol/L Normal 0.4-2.0 [facility] Comment on above: Order Comment: Resul t did not trigger repeat Lactate, re-order if needed. Performed By: #### L ACTS #### [facility] ([facility]) [address] [place] [address] [place] [address] VIR MAGNESIUMon 01-15-2025 Magnesium [Mass/Vol] 1.8 mg/dL Normal 1.8-2.6 [facility] Comment on above: Performed By: #### M G #### [facility] ([facility]) [address] [place] [address] [place] [address] VIR POCT NURSING URINE MACROSCOP IC UAon 01-15-2025 BILIRUBIN ANISHA Negative Normal Negative [facility] Comment on above: Performed By: #### C TUSHAR, , CBCA #### [facility] ([id number]) [address] [place] [address] 18832 BLOOD/HGB ANISHA Small Abnormal Negative [facility] Comment on above: Performed By: #### Casey FINLEY, , CBCA #### [facility] ([id number]) [address] [place] [address] [place] [address] GLUCOSE ANISHA >=1000 mg/dL Abnormal Negative [facility] Comment on above: Performed By: #### Casey FINLEY, , CBCA #### [facility] ([id number]) [address] [place] [address] 95[address] KETONES ANISHA Negative Normal Negative [facility] Comment on above: Performed By: #### Casey FINLEY, , CBCA #### [facility] ([id number]) [address] [place] [address] [place] [address] LEUKOCYTE ESTERASE ANISHA Small Abnormal Negative Pr [facility] Comment on above: Performed By: #### Casey FINLEY, , CBCA #### [facility] ([id number]) [address] [place] [address] 88124 NITRITE ANISHA Negative Normal Negative [facility] Comment on above: Performed By: #### Casey FINLEY, , CBCA #### [facility] ([id number]) [address] [place] [address] PH ANISHA 5.5 Normal 5.0, 6.0, 6.5, 7.0, 7.5, 8.0, 8.5, 5.[address] [facility] Comment on above: Performed By: #### C TUSHAR, , CBCA #### [facility] ([id number]) [address] [place] [address]60[address] PROTEIN ANISHA Negative Normal Negative [facility] Comment on above: Performed By: #### C TUSHAR, , CBCA #### [facility] ([id number]) [address] [place] [address]84[address] SPECIFIC GRAVITY ANISHA 1.010 Normal 1.010, 1.015, 1.020, 1.[address] [facility] Comment on above: Performed By: #### C TUSHAR, , CBCA #### [facility] ([id number]) [address] [place] [address] 88749 UROBILINOGEN ANISHA 0.2 E.U./dL Normal [facility] Comment on above: Performed By: #### C TUSHAR, , CBCA #### [facility] ([id number]) [address] [place] [address] 595[address] TROP I, HIGH SENSITIVITY 1 H OURon 01-15-2025 TROPONIN I, HIGH SENSITIVITY 4 ng/L Normal <[address] [facility] Comment on above: Performed By: #### C TUSHAR, , CBCA #### [facility] ([id number]) [address] [place] [address] 59580 TROPONIN I, HIGH SENSITIVITY 0 HOURon 01-15-2025 TROPONIN I, HIGH SENSITIVITY 4 ng/L Normal <[address] [facility] Comment on above: Performed By: #### T NIHS0 #### [facility] ([facility]) [address] [place] [address]. [place] [address] VIR URINE CULTUREon 01-15-2025 Bacteria identified Cx [...] Trimethoprim + Sulfamethoxazole R >=^16.0 F Resistant [facility] Comment on above: Order Comment: Along with <10,000 CFU/mL Normal Urogenital Vikram. Performed By: #### C TUSHAR, 01230-6, CBCA #### [facility] ([id number]) [address] [place] [address], [place] [address] HbA1c (Bld) [Mass fraction]o n 12-14-2024 Interpretation and review of laboratory results Abnormal [facility] Laboratory - Hematology and Cell countson 12-14-2024 HbA1c (Bld) [Mass fraction] 14.1 % [facility] Orders Onlyon 10-28-2024 Orders Only [id number] Denae Dior 1960 F Date Provider Department Center 10/28/2024 [id number], HISTORICAL [facility] Family History Problem Relation Age of Onset Stroke Father Family Status - Relation Status Age at Father Normal [facility] GASTROINTESTINAL PLUS PARASI ASHLEY (HTRX)on [...] [facility] CT ABDOMEN WO/W CONon [address] [address] [address] Scan Report Signed Patient: DENAE DIOR MR#: [id number] : 1960 Acct:[id number] Age/Sex: 63 / F ADM Date: 07/06/24 Loc: CT Attending Dr: Maira Rush NP Ordering Physician: Maira Rush NP Date of Service: 07/06/24 Procedure(s): CT abdomen wo/w con Accession Number(s): [id number] cc: Maira Rush NP [place] [address] Patient Name: DENAE DIOR MRN: [facility]:[id number] date: 1960 Sex: F Assigned Patient Location: CT Current Patient Location: Accession/Order Number: [id number] Exam Date: 07/06/2024 09:03 Report Date: 07/08/2024 [...] Signed By: 07/08/24 1155 DD/ 1152 TD/TT: Hr Administrative Assistant: [facility] Radiology, Radiologist, - 07/08/2024 [place] [address] CT Scan Report Signed Patient: DENAE DIOR MR#: [id number] : 1960 Acct:[id number] Age/Sex: 63 / F ADM Date: 07/06/24 Loc: CT Attending Dr: Maira Rush NP Ordering Physician: Maira Rush NP Date of Service: 07/06/24 Procedure(s): CT abdomen wo/w con Accession Number(s): [id number] cc: Maira Rush NP [address] [place] [address] Patient Name: DENAE DIOR MRN: [facility]:[id number] date: 1960 Sex: F Assigned Patient Location: CT Current Patient Location: Accession/Order Number: [id number] Exam Date: 07/06/2024 09:03 Report Date: 07/08/2024 [...] Signed By: 07/08/24 1155 DD/ 1152 TD/TT: Hr Administrative Assistant: [facility] Radiology Study observation (narrative) [facility] CT ABDOMEN WO/W CONOrdered B y: Radiologist Radiology on 07-08-2024 [facility] Work Phone: Office Visiton 07-06-2024 Follow-up visit [id number] Denae Dior 1960 F Date Provider Department Center 07/06/2024 Emmett8[facility] Family History Problem Relation Age of Onset Stroke Father Family Status - Relation Status Age at Father Level of Service:41219 [place] OFFICE/OUTPATIENT ESTABLISHED LOW MDM 20 MIN Normal [facility] ALL RENAL FUNCTION PANELon 1 07-26-2023 Albumin [Mass/Vol] 3.3 g/dL Low 3.4 - 5.0 g/dL [facility] Anion gap [Moles/Vol] 9.2 mmol/L [facility] Calcium [Mass/Vol] 8.7 mg/dL 8.5 - 10. 1 mg/dL [facility] Chloride [Moles/Vol] 101 mmol/L 98 - 10 7 mmol/L [facility] CO2 [Moles/Vol] 31.7 mmol/L 21.0 - 32.0 mmol/L [facility] Creatinine [Mass/Vol] 0.87 mg/dL 0.55 - 1.02 mg/dL [facility] GFR/1.73 sq M.predicted CKD-EPI (S/P/Bld) [Vol rate/Area] >60 >=60 mL/min/1.73m 2 [facility] Glucose [Mass/Vol] 275 mg/dL High 74 - 106 mg/dL [facility] Interpretation and review of laboratory results Abnormal [facility] Phosphate [Mass/Vol] 4.3 mg/dL 2.6 - 4 .7 mg/dL [facility] Potassium [Moles/Vol] 3.9 mmol/L 3.5 - 5.1 mmol/L [facility] Sodium [Moles/Vol] 138 mmol/L 136 - 145 mmol/L [facility] TBH EGFR-NON AF [place]TH [place]OREAN >60 >=60 mL/min/1.73m 2 [facility] Urea nitrogen [Mass/Vol] 15 mg/dL 7.0 - 18.0 mg/dL [facility] Urea nitrogen/Creatinine [Mass ratio] 17.2 mg/mg [facility] Glucose (Bld) [Mass/Vol]Orde red By: Candy Baxter on 04-21-2024 Glucose Blood, POC 208 mg/dL [facility] Laboratory - Hematology and Cell countson 04-21-2024 HbA1c (Bld) [Mass fraction] 10.6 % [facility] No Panel InformationOrdered By: Candy Baxter on 04-21-2024 [facility] TB UA (CLEAN/CATCH) MICROSC OPIC IF INDICATEon 04-09-2024 BILIRUBIN URINE Negative NEGATIVE [facility] BLOOD URINE Negative NEGATIVE [facility] Clarity (U) CLEAR CLEAR [facility] Color (U) LT. YELLOW YELLOW [facility] GLUCOSE URINE UA >=1000 Abnormal NEGATIVE mg/dL [facility] Interpretation and review of laboratory results Abnormal [facility] Ketones Ql (U) Negative NEGATIVE mg/dL [facility] Leukocyte esterase Test strip Ql (U) Negative NEGATIVE [facility] NITRITE URINE Negative NEGATIVE [facility] pH (U) 6.0 [pH] 5.0 - 9.0 [facility] PROTEIN URINE Negative NEG/TRACE mg/dL [facility] SPECIFIC GRAVITY URINE 1.010 1.005 - 1.025 [facility] URINE MICROSCOPIC INDICATED NO [facility] UROBILINOGEN URINE 0.2 EU/dL 0.2 - 1.0 EU/dL [facility] URINE CULTURE, ROUTINEon Bacteria identified Cx Nom (U) Urine Culture, Routine [facility] Bacteria identified Cx Nom (U) Mixed urogenital vikram [facility] Bacteria identified Cx Nom (U) 10,000-25,000 colony forming units per mL [facility] Bacteria identified Cx Nom (U) [facility] Bacteria identified Cx Nom (U) [address], [place] [id number] [facility] Bacteria identified Cx Nom (U) Hose Finisher: Josh Moore PhD, Phone: [phone] [facility] CBC AND AUTO DIFFon 01-22-20 ABSOLUTE BASOPHIL 0.0 X10E9/L Normal 0.0-0.[address] [facility] Comment on above: Performed By: #### C TUSHAR, , CBCA #### [facility] ([id number]) [address] [place] [address] ABSOLUTE NEUTROPHIL 4.2 X10E9/L Normal 1.5-6.6 [facility] Comment on above: Performed By: #### C TUSHAR, , CBCA #### [facility] ([id number]) [address] [place] [address] 99380 Basophils/100 WBC (Bld) 0.4 % Normal [facility] Comment on above: Performed By: #### C TUSHAR, , CBCA #### [facility] ([id number]) [address] [place] [address] 62753 Eosinophils (Bld) [#/Vol] 0.2 10*3/uL Normal 0.0-0.[address] [facility] Comment on above: Performed By: #### C TUSHAR, , CBCA #### [facility] ([id number]) [address] [place] [address] 88675 Eosinophils/100 WBC (Bld) 2.6 % Normal [facility] Comment on above: Performed By: #### Casey FINLEY, , CBCA #### [facility] ([id number]) [address] [place] [address] 64908 Erythrocyte distribution width (RBC) [Ratio] 13.5 % Normal 11.5-15.[address] [facility] Comment on above: Performed By: #### C TUSHAR, , CBCA #### [facility] ([id number]) [address] [place] [address] 36726 Hematocrit (Bld) [Volume fraction] 48.3 % High 35-[address] [facility] Comment on above: Performed By: #### C TUSHAR, , CBCA #### [facility] ([id number]) [address] [place] [address] 79039 Hemoglobin (Bld) [Mass/Vol] 16.0 g/dL High 11.7-15.[address] [facility] Comment on above: Performed By: #### C TUSHAR, , CBCA #### [facility] ([id number]) [address] [place] [address] 43552 Lymphocytes (Bld) [#/Vol] 1.9 10*3/uL Normal 1.0-3.[address] [facility] Comment on above: Performed By: #### C TUSHAR, , CBCA #### [facility] ([id number]) [address] [place] [address] 94309 Lymphocytes/100 WBC (Bld) 27.1 % Normal [facility] Comment on above: Performed By: #### C TUSHAR, , CBCA #### [facility] ([id number]) [address] [place] [address] 41855 MCH (RBC) [Entitic mass] 31.5 pg Normal 27-[address] [facility] Comment on above: Performed By: #### C TUSHAR, , CBCA #### [facility] ([id number]) [address] [place] [address] 61279 MCHC (RBC) [Mass/Vol] 33.1 g/dL Normal 32-36 [facility] Comment on above: Performed By: #### C TUSHAR, , CBCA #### [facility] ([id number]) [address] [place] [address] 99411 MCV (RBC) [Entitic vol] 95 fL Normal 80-100 [facility] Comment on above: Performed By: #### C TUSHAR, , CBCA #### [facility] ([id number]) [address] [place] [address] 33351 Monocytes (Bld) [#/Vol] 0.7 10*3/uL Normal 0-0.[address] [facility] Comment on above: Performed By: #### C TUSHAR, , CBCA #### [facility] ([id number]) [address] [place] [address] 97216 Monocytes/100 WBC (Bld) 10.0 % Normal [facility] Comment on above: Performed By: #### Casey FINLEY, , CBCA #### [facility] ([id number]) [address] [place] [address] 42340 Neutrophils/100 WBC (Bld) 59.9 % Normal [facility] Comment on above: Performed By: #### Casey FINLEY, , CBCA #### [facility] ([id number]) [address] [place] [address] 84570 Platelet mean volume (Bld) [Entitic vol] 9.0 fL Normal 7-[address] [facility] Comment on above: Performed By: #### Casey FINLEY, , CBCA #### [facility] ([id number]) [address] [place] [address] 57620 Platelets (Bld) [#/Vol] 264 10*3/uL Normal 150-[address] [facility] Comment on above: Performed By: #### C TUSHAR, , CBCA #### [facility] ([id number]) [address] [place] [address] 17221 RBC COUNT 5.07 X10E12/L Normal 3.80-5.[address] [facility] Comment on above: Performed By: #### C TUSHAR, , CBCA #### [facility] ([id number]) [address] [place] [address] 32977 WBC (Bld) [#/Vol] 7.1 10*3/uL Normal 4.0-11.[address] [facility] Comment on above: Performed By: #### C TUSHAR, , CBCA #### [facility] ([id number]) [address] [place] [address] 96786 COMPREHENSIVE METABOLIC PANE Blayne 01-22-2024 Albumin [Mass/Vol] 3.1 g/dL Low 3.2-5.[address] [facility] Comment on above: Performed By: #### C TUSHAR, , CBCA #### [facility] ([id number]) [address] [place] [address] 79048 ALP [Catalytic activity/Vol] 98 U/L Normal 39-[address] [facility] Comment on above: Performed By: #### C TUSHAR, , CBCA #### [facility] ([id number]) [address] [place] [address] 53068 ALT [Catalytic activity/Vol] 21 U/L Normal 0-[address] [facility] Comment on above: Performed By: #### C TUSHAR, , CBCA #### [facility] ([id number]) [address] [place] [address] 39820 Anion gap [Moles/Vol] 7 mmol/L Normal 5-15 [facility] Comment on above: Performed By: #### C TUSHAR, , CBCA #### [facility] ([id number]) [address] [place] [address] 20663 AST [Catalytic activity/Vol] 19 U/L Normal 0-[address] [facility] Comment on above: Performed By: #### C TUSHAR, , CBCA #### [facility] ([id number]) [address] [place] [address] 06173 Bilirubin [Mass/Vol] 0.5 mg/dL Normal 0.3-1.2 [facility] Comment on above: Performed By: #### C TUSHAR, , CBCA #### [facility] ([id number]) [address] [place] [address] 61839 Calcium [Mass/Vol] 8.9 mg/dL Normal 8.5-10.[address] [facility] Comment on above: Performed By: #### C TUSHAR, , CBCA #### [facility] ([id number]) [address] [place] [address] 51248 Chloride [Moles/Vol] 100 mmol/L Normal 98-109 [facility] Comment on above: Performed By: #### C TUSHAR, , CBCA #### [facility] ([id number]) [address] [place] [address] 09171 CO2 [Moles/Vol] 31 mmol/L Normal 22-[address] [facility] Comment on above: Performed By: #### C TUSHAR, , CBCA #### [facility] ([id number]) [address] [place] [address] 53194 Creatinine [Mass/Vol] 0.51 mg/dL Normal 0.40-1.00 [facility] Comment on above: Result Comment: METH OD TRACEABLE TO IDMS STANDARD Performed By: #### C TUSHAR, , CBCA #### [facility] ([id number]) [address] [place] [address] 43505 eGFR (CKD-EPI) NON-RACE DEPENDENT >90 Normal >[address] [facility] Comment on above: Result Comment: Reported eGFR is based on the CKD-EPI 2020 equation that does not use a race coefficient. Performed By: #### C TUSHAR, , CBCA #### [facility] ([id number]) [address] [place] [address] 96410 Glucose [Mass/Vol] 153 mg/dL High 65-[address] [facility] Comment on above: Performed By: #### C TUSHAR, , CBCA #### [facility] ([id number]) [address] [place] [address] 40961 Potassium [Moles/Vol] 4.0 mmol/L Normal 3.5-5.0 [facility] Comment on above: Performed By: #### C TUSHAR, , CBCA #### [facility] ([id number]) [address] [place] [address] 60085 Protein [Mass/Vol] 6.5 g/dL Normal 6.0-8.[address] [facility] Comment on above: Performed By: #### C TUSHAR, , CBCA #### [facility] ([id number]) [address] [place] [address] 47127 Sodium [Moles/Vol] 138 mmol/L Normal 134-[address] [facility] Comment on above: Performed By: #### C TUSHAR, , CBCA #### [facility] ([id number]) [address] [place] [address] 53175 Urea nitrogen [Mass/Vol] 20 mg/dL Normal 5-[address] [facility] Comment on above: Performed By: #### C TUSHAR, , CBCA #### [facility] ([id number]) [address] [place] [address] MAGNESIUMon 01-22-2024 Magnesium [Mass/Vol] 2.2 mg/dL Normal 1.8-2.6 [facility] Comment on above: Performed By: #### [place], [address]-7, CBCA #### [facility] ([id number]) [address] [place] [address] 75549 XR DEXA BONE DENSITYon 10-02 XR DEXA [...] by: ROBERT HART Date: 2022-10-02 12:08 Normal [facility] LIPID PROFILEon 08-09-2022 CHOL-HDL RATIO NORM SEE BELOW Normal [facility] Comment on above: Result Comment: 3.3 - 4.4 LOW RISK 4.4 - 7.1 AVERAGE RISK 7.1 - 11.0 MODERATE RISK >11.0 HIGH RISK Performed By: #### M ALBR #### [facility] [address] [place] [address] [address] Maru Disla Cholesterol [Mass/Vol] 110 mg/dL Normal <=200 Th [facility] Comment on above: Performed By: #### M ALBR #### [facility] [address] [place], [place] [address] Dr. Maru Disla Cholesterol in HDL [Mass/Vol] 38 mg/dL Critically low 40-60 [facility] Comment on above: Performed By: #### M ALBR #### [facility] [address] [place] [address] [address] Maru Disla Cholesterol in LDL [Mass/Vol] 52.4 mg/dL Normal [facility] Comment on above: Performed By: #### M ALBR #### [facility] [address] [place] [address] [address] Maru Disla Cholesterol.total/Mariel sterol in HDL [Mass ratio] 2.9 {ratio} Normal [facility] Comment on above: Performed By: #### M ALBR #### [facility] [address] [place] [address] Dr. Maru Disla HDL NORMAL > or = 60 mg/dl - LOW CARDIOVASCULAR RISK <40 mg/dl - HIGH CARDIOVASCULAR RISK Normal [facility] Comment on above: Performed By: #### M ALBR #### [facility] [address] [place] [address] Dr. Maru Disla LDL CALC NORMAL SEE BELOW Normal [facility] Comment on above: Result Comment: <100 mg/dl OPTIMAL 100 - 129 mg/dl NEAR OR ABOVE OPTIMAL 130 - 159 mg/dl BORDERLINE HIGH 160 - 189 mg/dl HIGH >190 mg/dl VERY HIGH Performed By: #### M ALBR #### [facility] [address] [place] [address] Dr. Maru Disla Triglyceride [Mass/Vol] 98 mg/dL Normal <=150 T [facility] Comment on above: Performed By: #### M ALBR #### [facility] [address] [place] [address] Dr. Maru Disla VLDL CALC 19.6 mg/dL Normal [facility] Comment on above: Performed By: #### M ALBR #### [facility] [address] [place] [address] Dr. Maru Disla MICROALBUMIN, RAND URon 03-0 mALB <1.3 Normal <=30.0 [facility] Comment on above: Performed By: #### M ALBR #### [facility] [address] [place] [address] Dr. Maru Disla PROF 14(COMP METB)on 023 Albumin [Mass/Vol] 3.6 g/dL Normal 3.4-5.0 [facility] Comment on above: Performed By: #### M ALBR #### [facility] [address] [place] [address] Dr. Maru Disla Albumin/Globulin [Mass ratio] 0.9 {ratio} Normal [facility] Comment on above: Performed By: #### M ALBR #### [facility] [address] [place] [address] Dr. Maru Disla ALP [Catalytic activity/Vol] 92 U/L Normal 46-116 [facility] Comment on above: Performed By: #### M ALBR #### [facility] [address] [place] [address] Dr. Maru Disla ALT [Catalytic activity/Vol] 22 U/L Normal 14-59 [facility] Comment on above: Performed By: #### M ALBR #### [facility] [address] [place] [address] Dr. Maru Disla Anion gap [Moles/Vol] 13.2 mmol/L Normal [facility] Comment on above: Performed By: #### M ALBR #### [facility] [address] [place] [address] Dr. Maru Disla AST [Catalytic activity/Vol] 17 U/L Normal 15-37 [facility] Comment on above: Performed By: #### M ALBR #### [facility] [address] [place] [address] Dr. Maru Disla Bilirubin [Mass/Vol] 0.4 mg/dL Normal 0.2-1.0 [facility] Comment on above: Performed By: #### M ALBR #### [facility] [address] [place] [address] Dr. Maru Disla Calcium [Mass/Vol] 9.3 mg/dL Normal 8.5-10.1 [facility] Comment on above: Performed By: #### M ALBR #### [facility] [address] [place] [address] Dr. Maru Disla Chloride [Moles/Vol] 102 mmol/L Normal 98-107 [facility] Comment on above: Performed By: #### M ALBR #### [facility] [address] [place] [address] Dr. Maru Disla CO2 [Moles/Vol] 29.7 mmol/L Normal 21.0-32.0 [facility] Comment on above: Performed By: #### M ALBR #### [facility] [address] [place] [address] Dr. Maru Disla Creatinine [Mass/Vol] 0.74 mg/dL Normal 0.55-1.02 [facility] Comment on above: Performed By: #### M ALBR #### [facility] [address] [place] [address] Dr. Maru Disla EGFR-AF [place]OREAN >60 Normal >=60 [facility] Comment on above: Performed By: #### M ALBR #### [facility] [address] [place] [address] Dr. Maru Disla EGFR-NON AF [place] >60 Normal >=60 [facility] Comment on above: Performed By: #### M ALBR #### [facility] [address] [place] [address] Dr. Maru Disla Globulin (S) [Mass/Vol] 3.9 g/dL Normal [facility] Comment on above: Performed By: #### M ALBR #### [facility] [address] [place] [address] Dr. Maru Disla Glucose [Mass/Vol] 271 mg/dL Critically high 74-106 [facility] Comment on above: Performed By: #### M ALBR #### [facility] [address] [place] [address] Dr. Maru Disla Potassium [Moles/Vol] 3.9 mmol/L Normal 3.5-5.1 [facility] Comment on above: Performed By: #### M ALBR #### [facility] [address] [place] [address] Dr. Maru Disla Protein [Mass/Vol] 7.5 g/dL Normal 6.4-8.2 [facility] Comment on above: Performed By: #### M ALBR #### [facility] [address] [address] [address] Maru Disla Sodium [Moles/Vol] 141 mmol/L Normal 136-145 [facility] Comment on above: Performed By: #### M ALBR #### [facility] [address] [address] [address] Maru Disla Urea nitrogen [Mass/Vol] 8.0 mg/dL Normal 7.0-18.0 [facility] Comment on above: Performed By: #### M ALBR #### [facility] [address] [address] [address] Maru Disla Urea nitrogen/Creatinine [Mass ratio] 10.8 mg/mg Normal [facility] Comment on above: Performed By: #### M ALBR #### [facility] [address] [address] [address] Maru Disla MG MAMM SCREEN 3D BALDO CADon 06-21-2022 MG MAMM SCREEN 3D BALDO CAD Patient: DENAE DIOR Exam Date: 06/21/2022 : 1960 Gender:F Ordering : DMITRY [employer] [employer] Admission #: [id number] Family : Order #: [id number] CLICK HERE TO VIEW EXAM RADIOLOGY REPORT [...] breast cancer at age 64. LOCATION: [facility] BREAST COMPOSITION: Scattered areas fibroglandular density. FINDINGS: [...] MD on 06/21/2022 at 10:10 Normal [facility] HEMOGLOBINon 06-20-2022 Hemoglobin (Bld) [Mass/Vol] 15.1 g/dL Normal 12.0-16.0 [facility] Comment on above: Performed By: #### B MP #### [facility] [address] [place] [address] Dr. Maru Disla BNPon 04-09-2022 Natriuretic peptide B (Bld) [Mass/Vol] 824.0 pg/mL Normal <=900.0 [facility] Comment on above: Performed By: #### M ALBR #### [facility] [address] [place] [address] Dr. Maru Disla CARDIAC BREANNE ADMITon 022 CK [Catalytic activity/Vol] 364 U/L Critically high 26-192 [facility] Comment on above: Performed By: #### P OCGLUC #### [facility] [address] [place] [address] Dr. Maru Disla CK.MB [Mass/Vol] 5.60 ng/mL Critically high <=3.60 [facility] Comment on above: Performed By: #### P OCGLUC #### [facility] [address] [place] [address] Dr. Maru Disla HSTROP 454.7 pg/mL Critically high 4.0-51.[address] [facility] Comment on above: Result Comment: CUT- OFF POINTS HAVE BEEN ESTABLISHED BASED ON THE FOURTH UNIVERSAL DEFINITIONS OF MYOCARDIAL INFARCTION. THE UPPER REFERENCE LIMIT (URL) OF TROPONIN, DEFINED THE 99TH PERCENTILE OF cTnI DISTRIBUTION IN A REFERENCE POPULATION, HAS BEEN CONFIRMED THE DECISION THRESHOLD FOR DE DIAGNOSIS. Performed By: #### P OCGLUC #### [facility] [address] [place] [address] Dr. Maru Disla REDD 137 ng/mL Critically high 9-82 [facility] Comment on above: Performed By: #### P OCGLUC #### [facility] [address] [address] [address] Maru Disla CBC AUTO DIFFon 04-09-2022 BASO # 0.0 103/ul Normal 0.0-0.1 [facility] Comment on above: Performed By: #### A BG #### [facility] [address] [address] [address] Maru Disla Basophils/100 WBC (Bld) 0.2 % Normal 0.2-2.0 [facility] Comment on above: Performed By: #### A BG #### [facility] [address] [address] [address] Maru Disla EO # 0.0 103/ul Normal 0.0-0.7 [facility] Comment on above: Performed By: #### A BG #### [facility] [address] [place] [address] Dr. Maru Disla Eosinophils/100 WBC (Bld) 0.0 % Critically low 0.9-7.0 [facility] Comment on above: Performed By: #### A BG #### [facility] [address] [place] [address] Dr. Maru Disla Erythrocyte distribution width (RBC) [Ratio] 13.4 % Normal 11.0-15.0 [facility] Comment on above: Performed By: #### A BG #### [facility] [address] [place] [address] Dr. Maru Disla Hematocrit (Bld) [Volume fraction] 48.3 % Critically high 36.0-48.0 [facility] Comment on above: Performed By: #### A BG #### [facility] [address] [place] [address] Dr. Maru Disla Hemoglobin (Bld) [Mass/Vol] 15.3 g/dL Normal 12.0-16.0 [facility] Comment on above: Performed By: #### A BG #### [facility] [address] [place] [address] Dr. Maru Disla IG # 0.11 10e3/ul Critically high 0.00-0.03 [facility] Comment on above: Performed By: #### A BG #### [facility] [address] [place] [address] Dr. Maru Disla IG % 0.6 % Critically high 0.0-0.5 [facility] Comment on above: Performed By: #### A BG #### [facility] [address] [place] [address] Dr. Maru Disla LYMPH # 1.1 103/ul Critically low 1.2-3.8 [facility] Comment on above: Performed By: #### A BG #### [facility] [address] [place] [address] Dr. Maru Disla Lymphocytes/100 WBC (Bld) 6.1 % Critically low 20.5-60.0 [facility] Comment on above: Performed By: #### A BG #### [facility] [address] [place] [address] Dr. Maru Disla MANUAL DIFF REQ NO Normal [facility] Comment on above: Performed By: #### A BG #### [facility] [address] [place] [address] Dr. Maru Disla MCH (RBC) [Entitic mass] 29.8 pg Normal 26.7-34.0 [facility] Comment on above: Performed By: #### A BG #### [facility] [address] [place] [address] Dr. Maru Disla MCHC (RBC) [Mass/Vol] 31.7 g/dL Normal 29.9-35.2 [facility] Comment on above: Performed By: #### A BG #### [facility] [address] [place] [address] Dr. Maru Disla MCV (RBC) [Entitic vol] 94.2 fL Normal 81.0-99.0 [facility] Comment on above: Performed By: #### A BG #### [facility] [address] [place] [address] Dr. Maru Disla MONO # 0.7 103/ul Normal 0.3-0.8 [facility] Comment on above: Performed By: #### A BG #### [facility] [address] [address] [address] Maru Disla Monocytes/100 WBC (Bld) 3.9 % Normal 1.7-12.0 [facility] Comment on above: Performed By: #### A BG #### [facility] [address] [place] [address] Dr. Maru Disla NEUT # 15.3 103/ul Critically high 1.4-6.[address] [facility] Comment on above: Performed By: #### A BG #### [facility] [address] [place] [address] Dr. Maru Disla Neutrophils/100 WBC (Bld) 89.2 % Critically high 43.0-75.0 [facility] Comment on above: Performed By: #### A BG #### [facility] [address] [place] [address] Dr. Maru Disla Platelet mean volume (Bld) [Entitic vol] 10.4 fL Normal 9.5-13.5 [facility] Comment on above: Performed By: #### A BG #### [facility] [address] [place] [address] Dr. Maru Disla PLT 311 103/ul Normal 150-450 [facility] Comment on above: Performed By: #### A BG #### [facility] [address] [place] [address] Dr. Maru Disla RBC 5.13 106/ul Normal 4.20-5.40 [facility] Comment on above: Performed By: #### A BG #### [facility] [address] [place] [address] Dr. Maru Disla WBC 17.2 103/ul Critically high 4.0-11.[address] [facility] Comment on above: Performed By: #### A BG #### [facility] [address] [place] [address] Dr. Maru Disla ECHOCARDIO M/2D COMPLETEon 1 06-09-2021 ECHOCARDIO M/2D COMPLETE Patient: DENAE DIOR Exam Date: 04/09/2022 : 1960 Gender:F Ordering : DR TERI BLOCK . Admission #: [id number] Family : Order #: [id number] CLICK HERE TO VIEW EXAM ECHOCARDIOGRAM REPORT [...] Subramanian M.D. on 04/10/2022 at 15:44 Normal [facility] POINT OF CARE GLUCOSEon 11-0 Glucose [Mass/Vol] 171 mg/dL Critically high 74-106 [facility] Comment on above: Performed By: #### P OCGLUC #### [facility] [address] [place] [address] Dr. Maru Disla Glucose [Mass/Vol] 97 mg/dL Normal 74-106 [facility] Comment on above: Performed By: #### M ALBR #### [facility] [address] [address] [address] Maru Disla PROF CHEM 8 (BAS METB)on Anion gap [Moles/Vol] 9.1 mmol/L Normal [facility] Comment on above: Performed By: #### P OCGLUC #### [facility] [address] [address] [address] Maru Disla Calcium [Mass/Vol] 8.7 mg/dL Normal 8.5-10.1 [facility] Comment on above: Performed By: #### P OCGLUC #### [facility] [address] [address] [address] Maru Disla Chloride [Moles/Vol] 104 mmol/L Normal 98-107 [facility] Comment on above: Performed By: #### P OCGLUC #### [facility] [address] [address] [address] Maru Disla CO2 [Moles/Vol] 33.2 mmol/L Critically high 21.0-32.0 [facility] Comment on above: Performed By: #### P OCGLUC #### [facility] [address] [address] [address] Maru Disla Creatinine [Mass/Vol] 0.87 mg/dL Normal 0.55-1.02 [facility] Comment on above: Performed By: #### P OCGLUC #### [facility] [address] [address] [address] Maru Disla EGFR-AF [place]OREAN >60 Normal >=60 [facility] Comment on above: Performed By: #### P OCGLUC #### [facility] [address] [address] [address] Maru Disla EGFR-NON AF [place] >60 Normal >=60 [facility] Comment on above: Performed By: #### P OCGLUC #### [facility] [address] [address] [address] Maru Disla Glucose [Mass/Vol] 115 mg/dL Critically high 74-106 [facility] Comment on above: Performed By: #### P OCGLUC #### [facility] [address] [address] [address] Maru Disla Potassium [Moles/Vol] 4.3 mmol/L Normal 3.5-5.1 [facility] Comment on above: Performed By: #### P OCGLUC #### [facility] [address] [address] [address] Maru Disla Sodium [Moles/Vol] 142 mmol/L Normal 136-145 [facility] Comment on above: Performed By: #### P OCGLUC #### [facility] [address] [place] [address] Dr. Maru Disla Urea nitrogen [Mass/Vol] 36.0 mg/dL Critically high 7.0-18.0 [facility] Comment on above: Performed By: #### P OCGLUC #### [facility] [address] [place] [address] Dr. Maru Disla Urea nitrogen/Creatinine [Mass ratio] 41.4 mg/mg Normal [facility] Comment on above: Performed By: #### P OCGLUC #### [facility] [address] [place] [address] Dr. Maru Disla CARDIAC BREANNE 3-6on 2 CK [Catalytic activity/Vol] 381 U/L Critically high 26-192 [facility] Comment on above: Performed By: #### C MREP #### [facility] [address] [place] [address] Dr. Maru Disla CK.MB [Mass/Vol] 7.91 ng/mL Critically high <=3.60 [facility] Comment on above: Performed By: #### C MREP #### [facility] [address] [place] [address] Dr. Maru Disla HSTROP 766.1 pg/mL Critically high 4.0-51.[address] [facility] Comment on above: Result Comment: CUT- OFF POINTS HAVE BEEN ESTABLISHED BASED ON THE FOURTH UNIVERSAL DEFINITIONS OF MYOCARDIAL INFARCTION. THE UPPER REFERENCE LIMIT (URL) OF TROPONIN, DEFINED THE 99TH PERCENTILE OF cTnI DISTRIBUTION IN A REFERENCE POPULATION, HAS BEEN CONFIRMED THE DECISION THRESHOLD FOR DE DIAGNOSIS. Performed By: #### C MREP #### [facility] [address] [place] [address] Dr. Maru Disla CK [Catalytic activity/Vol] 356 U/L Critically high 26-192 [facility] Comment on above: Performed By: #### C MREP #### [facility] [address] [place] [address] Dr. Maru Disla CK.MB [Mass/Vol] 8.66 ng/mL Critically high <=3.60 [facility] Comment on above: Performed By: #### C MREP #### [facility] [address] [address] [address] Maru Disla HSTROP 610.6 pg/mL Critically high 4.0-51.[address] [facility] Comment on above: Result Comment: CUT- OFF POINTS HAVE BEEN ESTABLISHED BASED ON THE FOURTH UNIVERSAL DEFINITIONS OF MYOCARDIAL INFARCTION. THE UPPER REFERENCE LIMIT (URL) OF TROPONIN, DEFINED THE 99TH PERCENTILE OF cTnI DISTRIBUTION IN A REFERENCE POPULATION, HAS BEEN CONFIRMED THE DECISION THRESHOLD FOR DE DIAGNOSIS. Performed By: #### C MREP #### [facility] [address] [address] [address] Maru Disla CARDIAC BREANNE ADMITon 022 CK [Catalytic activity/Vol] 381 U/L Critically high 26-192 [facility] Comment on above: Performed By: #### C MADM #### [facility] [address] [place] [address] Dr. Maru Disla CK.MB [Mass/Vol] 8.07 ng/mL Critically high <=3.60 [facility] Comment on above: Performed By: #### C MADM #### [facility] [address] [place] [address] Dr. Maru Disla HSTROP 220.2 pg/mL Critically high 4.0-51.[address] [facility] Comment on above: Result Comment: CUT- OFF POINTS HAVE BEEN ESTABLISHED BASED ON THE FOURTH UNIVERSAL DEFINITIONS OF MYOCARDIAL INFARCTION. THE UPPER REFERENCE LIMIT (URL) OF TROPONIN, DEFINED THE 99TH PERCENTILE OF cTnI DISTRIBUTION IN A REFERENCE POPULATION, HAS BEEN CONFIRMED THE DECISION THRESHOLD FOR DE DIAGNOSIS. Performed By: #### C MADM #### [facility] [address] [place] [address] Dr. Maru Disla REDD 269 ng/mL Critically high 9-82 [facility] Comment on above: Performed By: #### C MADM #### [facility] [address] [place] [address] Dr. Maru Disla CBC AUTO DIFFon 04-08-2022 BASO # 0.0 103/ul Normal 0.0-0.1 [facility] Comment on above: Performed By: #### M ALBR #### [facility] [address] [address] [address] Maru Disla Basophils/100 WBC (Bld) 0.2 % Normal 0.2-2.0 [facility] Comment on above: Performed By: #### M ALBR #### [facility] [address] [place] [address] Dr. Maru Disla EO # 0.0 103/ul Normal 0.0-0.7 [facility] Comment on above: Performed By: #### M ALBR #### [facility] [address] [place] [address] Dr. Maru Disla Eosinophils/100 WBC (Bld) 0.0 % Critically low 0.9-7.0 [facility] Comment on above: Performed By: #### M ALBR #### [facility] [address] [place] [address] Dr. Maru Disla Erythrocyte distribution width (RBC) [Ratio] 13.4 % Normal 11.0-15.0 [facility] Comment on above: Performed By: #### M ALBR #### [facility] [address] [place] [address] Dr. Maru Disla Hematocrit (Bld) [Volume fraction] 52.7 % Critically high 36.0-48.0 [facility] Comment on above: Performed By: #### M ALBR #### [facility] [address] [place] [address] Dr. Maru Disla Hemoglobin (Bld) [Mass/Vol] 16.8 g/dL Critically high 12.0-16.0 [facility] Comment on above: Performed By: #### M ALBR #### [facility] [address] [place] [address] Dr. Maru Disla IG # 0.13 10e3/ul Critically high 0.00-0.03 [facility] Comment on above: Performed By: #### M ALBR #### [facility] [address] [place] [address] Dr. Maru Disla IG % 0.6 % Critically high 0.0-0.5 [facility] Comment on above: Performed By: #### M ALBR #### [facility] [address] [address] [address] Maru Disla LYMPH # 0.8 103/ul Critically low 1.2-3.8 [facility] Comment on above: Performed By: #### M ALBR #### [facility] [address] [address] [address] Maru Disla Lymphocytes/100 WBC (Bld) 3.4 % Critically low 20.5-60.0 [facility] Comment on above: Performed By: #### M ALBR #### [facility] [address] [address] [address] Maru Disla MANUAL DIFF REQ NO Normal [facility] Comment on above: Performed By: #### M ALBR #### [facility] [address] [place] [address] Dr. Maru Disla MCH (RBC) [Entitic mass] 29.4 pg Normal 26.7-34.0 [facility] Comment on above: Performed By: #### M ALBR #### [facility] [address] [address] [address] Maru Disla MCHC (RBC) [Mass/Vol] 31.9 g/dL Normal 29.9-35.2 [facility] Comment on above: Performed By: #### M ALBR #### [facility] [address] [place] [address] Dr. Maru Disla MCV (RBC) [Entitic vol] 92.1 fL Normal 81.0-99.0 [facility] Comment on above: Performed By: #### M ALBR #### [facility] [address] [address] [address] Maru Disla MONO # 0.8 103/ul Normal 0.3-0.8 [facility] Comment on above: Performed By: #### M ALBR #### [facility] [address] [address] [address] Maru Disla Monocytes/100 WBC (Bld) 3.4 % Normal 1.7-12.0 [facility] Comment on above: Performed By: #### M ALBR #### [facility] [address] [address] [address] Maru Disla NEUT # 21.8 103/ul Critically high 1.4-6.5 [facility] Comment on above: Performed By: #### M ALBR #### [facility] [address] [address] [address] Maru Disla Neutrophils/100 WBC (Bld) 92.4 % Critically high 43.0-75.0 [facility] Comment on above: Performed By: #### M ALBR #### [facility] [address] [address] [address] Maru Disla Platelet mean volume (Bld) [Entitic vol] 10.4 fL Normal 9.5-13.5 [facility] Comment on above: Performed By: #### M ALBR #### [facility] [address] [place] [address] Dr. Maru Disla PLT 335 103/ul Normal 150-450 [facility] Comment on above: Performed By: #### M ALBR #### [facility] [address] [place] [address] Dr. Maru Disla RBC 5.72 106/ul Critically high 4.20-5.40 [facility] Comment on above: Performed By: #### M ALBR #### [facility] [address] [place] [address] Dr. Maru Disla WBC 23.5 103/ul Critically high 4.0-11.0 [facility] Comment on above: Performed By: #### M ALBR #### [facility] [address] [place] [address] Dr. Maru Disla POINT OF CARE GLUCOSEon - Glucose [Mass/Vol] 275 mg/dL Critically high 74-106 [facility] Comment on above: Performed By: #### P OCGLUC #### [facility] [address] [place] [address] Dr. Maru Disla Glucose [Mass/Vol] 161 mg/dL Critically high 74-106 [facility] Comment on above: Performed By: #### B MP #### [facility] [address] [address] [address] Maru Disla Glucose [Mass/Vol] 140 mg/dL Critically high 74-106 [facility] Comment on above: Performed By: #### P OCGLUC #### [facility] [address] [address] [address] Maru Disla Glucose [Mass/Vol] 219 mg/dL Critically high 74-106 [facility] Comment on above: Performed By: #### P OCGLUC #### [facility] [address] [place] [address] Dr. Maru Disla PROF CHEM 8 (BAS METB)on Anion gap [Moles/Vol] 14.0 mmol/L Normal [facility] Comment on above: Performed By: #### M ALBR #### [facility] [address] [place] [address] Dr. Maru Disla Calcium [Mass/Vol] 9.3 mg/dL Normal 8.5-10.1 [facility] Comment on above: Performed By: #### M ALBR #### [facility] [address] [place] [address] Dr. Maru Disla Chloride [Moles/Vol] 98 mmol/L Normal 98-107 [facility] Comment on above: Performed By: #### M ALBR #### [facility] [address] [place] [address] Dr. Maru Disla CO2 [Moles/Vol] 30.5 mmol/L Normal 21.0-32.0 [facility] Comment on above: Performed By: #### M ALBR #### [facility] [address] [place] [address] Dr. Maru Disla Creatinine [Mass/Vol] 1.09 mg/dL Critically high 0.55-1.02 [facility] Comment on above: Performed By: #### M ALBR #### [facility] [address] [place] [address] Dr. Maru Disla EGFR-AF [place] >60 Normal >=60 [facility] Comment on above: Performed By: #### M ALBR #### [facility] [address] [address] [address] Maru Disla EGFR-NON AF [place] 51 mL/min/1.73m2 Critically low >=60 [facility] Comment on above: Performed By: #### M ALBR #### [facility] [address] [address] [address] Maru Disla Glucose [Mass/Vol] 242 mg/dL Critically high 74-106 [facility] Comment on above: Performed By: #### M ALBR #### [facility] [address] [address] [address] Maru Disla Potassium [Moles/Vol] 3.5 mmol/L Normal 3.5-5.1 [facility] Comment on above: Performed By: #### M ALBR #### [facility] [address] [place] [address] Dr. Maru Disla Sodium [Moles/Vol] 139 mmol/L Normal 136-145 [facility] Comment on above: Performed By: #### M ALBR #### [facility] [address] [address] [address] Maru Disla Urea nitrogen [Mass/Vol] 32.0 mg/dL Critically high 7.0-18.0 [facility] Comment on above: Performed By: #### M ALBR #### [facility] [address] [address] [address] Maru Disla Urea nitrogen/Creatinine [Mass ratio] 29.4 mg/mg Normal [facility] Comment on above: Performed By: #### M ALBR #### [facility] [address] [address] [address] Maru Disla CBC AUTO DIFFon 04-07-2022 BASO # 0.0 103/ul Normal 0.0-0.1 [facility] Comment on above: Performed By: #### P OCGLUC #### [facility] [address] [address] [address] Maru Disla Basophils/100 WBC (Bld) 0.2 % Normal 0.2-2.0 [facility] Comment on above: Performed By: #### P OCGLUC #### [facility] [address] [address] [address] Maru Disla EO # 0.0 103/ul Normal 0.0-0.7 [facility] Comment on above: Performed By: #### P OCGLUC #### [facility] [address] [address] [address] Maru Disla Eosinophils/100 WBC (Bld) 0.0 % Critically low 0.9-7.0 [facility] Comment on above: Performed By: #### P OCGLUC #### [facility] [address] [address] [address] Maru Disla Erythrocyte distribution width (RBC) [Ratio] 13.6 % Normal 11.0-15.0 [facility] Comment on above: Performed By: #### P OCGLUC #### [facility] [address] [place] [address] Dr. Maru Disla Hematocrit (Bld) [Volume fraction] 48.1 % Critically high 36.0-48.0 [facility] Comment on above: Performed By: #### P OCGLUC #### [facility] [address] [place] [address] Dr. Maru Disla Hemoglobin (Bld) [Mass/Vol] 14.7 g/dL Normal 12.0-16.0 [facility] Comment on above: Performed By: #### P OCGLUC #### [facility] Laboratory [address] [address] [address] Maru Disla IG # 0.16 10e3/ul Critically high 0.00-0.03 [facility] Comment on above: Performed By: #### P OCGLUC #### [facility] [address] [address] [address] Maru Disla IG % 0.6 % Critically high 0.0-0.5 [facility] Comment on above: Performed By: #### P OCGLUC #### [facility] [address] [address] [address] Maru Disla LYMPH # 1.0 103/ul Critically low 1.2-3.8 [facility] Comment on above: Performed By: #### P OCGLUC #### [facility] [address] [address] [address] Maru Disla Lymphocytes/100 WBC (Bld) 4.1 % Critically low 20.5-60.0 [facility] Comment on above: Performed By: #### P OCGLUC #### [facility] [address] [address] [address] Maru Disla MANUAL DIFF REQ NO Normal [facility] Comment on above: Performed By: #### P OCGLUC #### [facility] [address] [address] [address] Maru Disla MCH (RBC) [Entitic mass] 29.4 pg Normal 26.7-34.0 [facility] Comment on above: Performed By: #### P OCGLUC #### [facility] [address] [place] [address] Dr. Maru Disla MCHC (RBC) [Mass/Vol] 30.6 g/dL Normal 29.9-35.2 [facility] Comment on above: Performed By: #### P OCGLUC #### [facility] [address] [place] [address] Dr. Maru Disla MCV (RBC) [Entitic vol] 96.2 fL Normal 81.0-99.0 [facility] Comment on above: Performed By: #### P OCGLUC #### [facility] [address] [place] [address] Dr. Maru Disla MONO # 0.8 103/ul Normal 0.3-0.8 [facility] Comment on above: Performed By: #### P OCGLUC #### [facility] [address] [place] [address] Dr. Maru Disla Monocytes/100 WBC (Bld) 3.2 % Normal 1.7-12.0 [facility] Comment on above: Performed By: #### P OCGLUC #### [facility] [address] [place] [address] Dr. Maru Disla NEUT # 23.1 103/ul Critically high 1.4-6.5 [facility] Comment on above: Performed By: #### P OCGLUC #### [facility] [address] [address] [address] Maru Disla Neutrophils/100 WBC (Bld) 91.9 % Critically high 43.0-75.0 [facility] Comment on above: Performed By: #### P OCGLUC #### [facility] [address] [address] [address] Maru Disla Platelet mean volume (Bld) [Entitic vol] 10.5 fL Normal 9.5-13.5 [facility] Comment on above: Performed By: #### P OCGLUC #### [facility] [address] [address] [address] Maru Disla PLT 300 103/ul Normal 150-450 [facility] Comment on above: Performed By: #### P OCGLUC #### [facility] [address] [address] [address] Maru Disla RBC 5.00 106/ul Normal 4.20-5.40 [facility] Comment on above: Performed By: #### P OCGLUC #### [facility] [address] [address] [address] Maru Disla WBC 25.1 103/ul Critically high 4.0-11.0 [facility] Comment on above: Performed By: #### P OCGLUC #### [facility] [address] [address] [address] Maru Disla POINT OF CARE GLUCOSEon Glucose [Mass/Vol] 247 mg/dL Critically high 74-106 [facility] Comment on above: Performed By: #### B MP #### [facility] [address] [address] [address] Maru Disla Glucose [Mass/Vol] 182 mg/dL Critically high -106 [facility] Comment on above: Performed By: #### A BG #### [facility] [address] [address] [address] Maru Disla Glucose [Mass/Vol] 177 mg/dL Critically high 74-106 [facility] Comment on above: Performed By: #### P OCGLUC #### [facility] [address] [address] [address] Maru Disla Glucose [Mass/Vol] 191 mg/dL Critically high 74-106 [facility] Comment on above: Performed By: #### P OCGLUC #### [facility] [address] [address] [address] Maru Disla PROF CHEM 8 (BAS METB)on Anion gap [Moles/Vol] 11.4 mmol/L Normal [facility] Comment on above: Performed By: #### M ALBR #### [facility] [address] [place] [address] Dr. Maru Disla Calcium [Mass/Vol] 8.9 mg/dL Normal 8.5-10.1 [facility] Comment on above: Performed By: #### M ALBR #### [facility] [address] [place] [address] Dr. Maru Disla Chloride [Moles/Vol] 108 mmol/L Critically high 98-107 [facility] Comment on above: Performed By: #### M ALBR #### [facility] [address] [place] [address] Dr. Maru Disla CO2 [Moles/Vol] 27.9 mmol/L Normal 21.0-32.0 [facility] Comment on above: Performed By: #### M ALBR #### [facility] [address] [place] [address] Dr. Maru Disla Creatinine [Mass/Vol] 0.84 mg/dL Normal 0.55-1.02 [facility] Comment on above: Performed By: #### M ALBR #### [facility] [address] [place] [address] Dr. Maru Disla EGFR-AF [place]TH [place]OREAN >60 Normal >=60 [facility] Comment on above: Performed By: #### M ALBR #### [facility] [address] [place] [address] Dr. Maru Disla EGFR-NON AF [place] >60 Normal >=60 [facility] Comment on above: Performed By: #### M ALBR #### [facility] [address] [address] [address] Maru Disla Glucose [Mass/Vol] 202 mg/dL Critically high 74-106 [facility] Comment on above: Performed By: #### M ALBR #### [facility] [address] [address] [address] Maru Disla Potassium [Moles/Vol] 4.3 mmol/L Normal 3.5-5.1 [facility] Comment on above: Performed By: #### M ALBR #### [facility] [address] [address] [address] Maru Disla Sodium [Moles/Vol] 143 mmol/L Normal 136-145 [facility] Comment on above: Performed By: #### M ALBR #### [facility] [address] [address] [address] Maru Disla Urea nitrogen [Mass/Vol] 26.0 mg/dL Critically high 7.0-18.0 [facility] Comment on above: Performed By: #### M ALBR #### [facility] [address] [address] [address] Maru Disla Urea nitrogen/Creatinine [Mass ratio] 31.0 mg/mg Normal [facility] Comment on above: Performed By: #### M ALBR #### [facility] [address] [address] [address] Maru Disla CBC AUTO DIFFon 04-06-2022 BASO # 0.0 103/ul Normal 0.0-0.1 [facility] Comment on above: Performed By: #### B MP #### [facility] [address] [address] [address] Maru Disla Basophils/100 WBC (Bld) 0.1 % Critically low 0.2-2.0 [facility] Comment on above: Performed By: #### B MP #### [facility] [address] [address] [address] Maru Disla EO # 0.0 103/ul Normal 0.0-0.7 [facility] Comment on above: Performed By: #### B MP #### [facility] [address] [place] [address] Dr. Maru Disla Eosinophils/100 WBC (Bld) 0.1 % Critically low 0.9-7.0 [facility] Comment on above: Performed By: #### B MP #### [facility] [address] [place] [address] Dr. Maru Disla Erythrocyte distribution width (RBC) [Ratio] 13.4 % Normal 11.0-15.0 [facility] Comment on above: Performed By: #### B MP #### [facility] [address] [place] [address] Dr. Maru Disla Hematocrit (Bld) [Volume fraction] 48.5 % Critically high 36.0-48.0 [facility] Comment on above: Performed By: #### B MP #### [facility] [address] [place] [address] Dr. Maru Disla Hemoglobin (Bld) [Mass/Vol] 15.5 g/dL Normal 12.0-16.0 [facility] Comment on above: Performed By: #### B MP #### [facility] [address] [place] [address] Dr. Maru Disla IG # 0.09 10e3/ul Critically high 0.00-0.03 [facility] Comment on above: Performed By: #### B MP #### [facility] [address] [place] [address] Dr. Maru Disla IG % 0.5 % Normal 0.0-0.5 [facility] Comment on above: Performed By: #### B MP #### [facility] [address] [place] [address] Dr. Maru Disla LYMPH # 0.9 103/ul Critically low 1.2-3.8 [facility] Comment on above: Performed By: #### B MP #### [facility] [address] [place] [address] Dr. Maru Disla Lymphocytes/100 WBC (Bld) 4.5 % Critically low 20.5-60.0 [facility] Comment on above: Performed By: #### B MP #### [facility] [address] [place] [address] Dr. Maru Disla MANUAL DIFF REQ NO Normal [facility] Comment on above: Performed By: #### B MP #### [facility] [address] [place] [address] Dr. Maru Disla MCH (RBC) [Entitic mass] 30.0 pg Normal 26.7-34.0 [facility] Comment on above: Performed By: #### B MP #### [facility] [address] [place] [address] Dr. Maru Disla MCHC (RBC) [Mass/Vol] 32.0 g/dL Normal 29.9-35.2 [facility] Comment on above: Performed By: #### B MP #### [facility] [address] [place] [address] Dr. Maru Disla MCV (RBC) [Entitic vol] 93.8 fL Normal 81.0-99.0 [facility] Comment on above: Performed By: #### B MP #### [facility] [address] [place] [address] Dr. Maru Disla MONO # 0.7 103/ul Normal 0.3-0.8 [facility] Comment on above: Performed By: #### B MP #### [facility] [address] [place] [address] Dr. Maru Disla Monocytes/100 WBC (Bld) 3.5 % Normal 1.7-12.0 [facility] Comment on above: Performed By: #### B MP #### [facility] [address] [place] [address] Dr. Maru Disla NEUT # 18.2 103/ul Critically high 1.4-6.5 [facility] Comment on above: Performed By: #### B MP #### [facility] [address] [place] [address] Dr. Maru Disla Neutrophils/100 WBC (Bld) 91.3 % Critically high 43.0-75.0 [facility] Comment on above: Performed By: #### B MP #### [facility] [address] [address] [address] Maru Disla Platelet mean volume (Bld) [Entitic vol] 11.2 fL Normal 9.5-13.5 [facility] Comment on above: Performed By: #### B MP #### [facility] [address] [address] [address] Maru Disla PLT 232 103/ul Normal 150-450 [facility] Comment on above: Performed By: #### B MP #### [facility] [address] [address] [address] Maru Disla RBC 5.17 106/ul Normal 4.20-5.40 [facility] Comment on above: Performed By: #### B MP #### [facility] [address] [place] [address] Dr. Maru Disla WBC 19.9 103/ul Critically high 4.0-11.0 [facility] Comment on above: Performed By: #### B MP #### [facility] [address] [address] [address] Maru Disla POINT OF CARE GLUCOSEon - Glucose [Mass/Vol] 199 mg/dL Critically high -106 [facility] Comment on above: Performed By: #### P OCGLUC #### [facility] [address] [address] [address] Maru Disla Glucose [Mass/Vol] 109 mg/dL Critically high 74-106 [facility] Comment on above: Performed By: #### A BG #### [facility] [address] [address] [address] Maru Disla Glucose [Mass/Vol] 253 mg/dL Critically high -106 [facility] Comment on above: Performed By: #### P OCGLUC #### [facility] [address] [address] [address] Maru Disla Glucose [Mass/Vol] 194 mg/dL Critically high -106 [facility] Comment on above: Performed By: #### B MP #### [facility] [address] [address] [address] Maru Disla PROF CHEM 8 (BAS METB)on Anion gap [Moles/Vol] 11.2 mmol/L Normal [facility] Comment on above: Performed By: #### B MP #### [facility] [address] [address] [address] Maru Disla Calcium [Mass/Vol] 8.8 mg/dL Normal 8.5-10.1 [facility] Comment on above: Performed By: #### B MP #### [facility] [address] [address] [address] Maru Disla Chloride [Moles/Vol] 105 mmol/L Normal 98-107 [facility] Comment on above: Performed By: #### B MP #### [facility] [address] [address] [address] Maru Disla CO2 [Moles/Vol] 26.8 mmol/L Normal 21.0-32.0 [facility] Comment on above: Performed By: #### B MP #### [facility] [address] [address] [address] Maru Disla Creatinine [Mass/Vol] 0.66 mg/dL Normal 0.55-1.02 [facility] Comment on above: Performed By: #### B MP #### [facility] [address] [address] [address] Maru Disla EGFR-AF [place] >60 Normal >=60 [facility] Comment on above: Performed By: #### B MP #### [facility] [address] [address] [address] Maru Disla EGFR-NON AF [place] >60 Normal >=60 [facility] Comment on above: Performed By: #### B MP #### [facility] [address] [address] [address] Maru Disla Glucose [Mass/Vol] 191 mg/dL Critically high 74-106 [facility] Comment on above: Performed By: #### B MP #### [facility] [address] [address] [address] Maru Disla Potassium [Moles/Vol] 5.0 mmol/L Normal 3.5-5.1 [facility] Comment on above: Performed By: #### B MP #### [facility] [address] [address] [address] Maru Disla Sodium [Moles/Vol] 138 mmol/L Normal 136-145 [facility] Comment on above: Performed By: #### B MP #### [facility] [address] [address] [address] Maru Disla Urea nitrogen [Mass/Vol] 21.0 mg/dL Critically high 7.0-18.0 [facility] Comment on above: Performed By: #### B MP #### [facility] [address] [address] [address] Maru Disla Urea nitrogen/Creatinine [Mass ratio] 31.8 mg/mg Normal [facility] Comment on above: Performed By: #### B MP #### [facility] [address] [address] [address] Maru Disla XR CHEST 2 Von [...] CORINE ANGELA Date: 2022-04-06 07:14 Normal [facility] BLOOD GASES BTYon 04-05-2022 02 MODE NASAL CANNULA Normal [facility] Comment on above: Performed By: #### A BG #### [facility] [address] [address] [address] Maru Disla ALLENS TEST Positive Normal [facility] Comment on above: Performed By: #### A BG #### [facility] [address] [address] [address] Maru Disla Base excess Calc (Bld) [Moles/Vol] -1.6000 mmol/L Normal -2.0-2.0 [facility] Comment on above: Performed By: #### A BG #### [facility] [address] [address] [address] Maru Disla BIPAP PRESSURE [facility] Comment on above: Performed By: #### A BG #### [facility] [address] [place] [address] Dr. Maru Disla CPAP [facility] Comment on above: Performed By: #### A BG #### [facility] [address] [place] [address] Dr. Maru Disla FIO2 [facility] Comment on above: Performed By: #### A BG #### [facility] [address] [address] [address] Maru Disla HCO3 (Bld) [Moles/Vol] 24.0 mmol/L Normal 22.0-26.0 [facility] Comment on above: Performed By: #### A BG #### [facility] [address] [place] [address] Dr. Maru Disla LPM 2 [facility] Comment on above: Performed By: #### A BG #### [facility] [address] [place] [address] Dr. Maru Disla MINUTE VOLUME Normal [facility] Comment on above: Performed By: #### A BG #### [facility] [address] [place] [address] Dr. Maru Disla Oxygen (Bld) [Partial pressure] 56.1 mm[Hg] Critically low 80.0-100.0 [facility] Comment on above: Performed By: #### A BG #### [facility] [address] [place] [address] Dr. Maru Disla Oxygen saturation in Blood 89.9 % Critically low 95.0-100.0 [facility] Comment on above: Performed By: #### A BG #### [facility] [address] [address] [address] Maru Disla PCO2 43.3 mmHg Normal 35.0-45.0 [facility] Comment on above: Performed By: #### A BG #### [facility] [address] [place] [address] Dr. Maru Disla PEEP [facility] Comment on above: Performed By: #### A BG #### [facility] [address] [place] [address] Dr. Maru Disla pH (Bld) 7.352 [pH] Normal 7.350-7.450 [facility] Comment on above: Performed By: #### A BG #### [facility] [address] [place] [address] Dr. Maru Disla [facility] Comment on above: Performed By: #### A BG #### [facility] [address] [place] [address] Dr. Mar[address] [facility] Comment on above: Performed By: #### A BG #### [facility] [address] [place] [address] Dr. Maru Disla PUNCTURE SITE LR [facility] Comment on above: Performed By: #### A BG #### [facility] [address] [place] [address] Dr. Maru Disla RATE [facility] Comment on above: Performed By: #### A BG #### [facility] [address] [place] [address] Dr. Maru Disla VENT MODE [facility] Comment on above: Performed By: #### A BG #### [facility] [address] [place] [address] Dr. Maru Disla [facility] Comment on above: Performed By: #### A BG #### [facility] [address] [place] [address] Dr. Maru Disla BNPon 04-05-2022 Natriuretic peptide B (Bld) [Mass/Vol] 471.0 pg/mL Normal <=900.0 [facility] Comment on above: Performed By: #### P OCGLUC #### [facility] [address] [address] [address] Maru Disla CBC AUTO DIFFon 04-05-2022 BASO # 0.0 103/ul Normal 0.0-0.1 [facility] Comment on above: Performed By: #### B MP #### [facility] [address] [address] [address] Maru Disla Basophils/100 WBC (Bld) 0.3 % Normal 0.2-2.0 [facility] Comment on above: Performed By: #### B MP #### [facility] [address] [address] [address] Maru Disla EO # 0.0 103/ul Normal 0.0-0.7 [facility] Comment on above: Performed By: #### B MP #### [facility] [address] [place] [address] Dr. Maru Disla Eosinophils/100 WBC (Bld) 0.0 % Critically low 0.9-7.0 [facility] Comment on above: Performed By: #### B MP #### [facility] [address] [place] [address] Dr. Maru Disla Erythrocyte distribution width (RBC) [Ratio] 13.2 % Normal 11.0-15.0 [facility] Comment on above: Performed By: #### B MP #### [facility] [address] [place] [address] Dr. Maru Disla Hematocrit (Bld) [Volume fraction] 52.3 % Critically high 36.0-48.0 [facility] Comment on above: Performed By: #### B MP #### [facility] [address] [place] [address] Dr. Maru Disla Hemoglobin (Bld) [Mass/Vol] 16.6 g/dL Critically high 12.0-16.0 [facility] Comment on above: Performed By: #### B MP #### [facility] [address] [place] [address] Dr. Maru Disla IG # 0.05 10e3/ul Critically high 0.00-0.03 [facility] Comment on above: Performed By: #### B MP #### [facility] [address] [place] [address] Dr. Maru Disla IG % 0.4 % Normal 0.0-0.5 [facility] Comment on above: Performed By: #### B MP #### [facility] [address] [place] [address] Dr. Maru Disla LYMPH # 1.5 103/ul Normal 1.2-3.8 [facility] Comment on above: Performed By: #### B MP #### [facility] [address] [place] [address] Dr. Maru Disla Lymphocytes/100 WBC (Bld) 10.7 % Critically low 20.5-60.0 [facility] Comment on above: Performed By: #### B MP #### [facility] [address] [place] [address] Dr. Maru Disla MANUAL DIFF REQ NO Normal [facility] Comment on above: Performed By: #### B MP #### [facility] [address] [place] [address] Dr. Maru Disla MCH (RBC) [Entitic mass] 29.7 pg Normal 26.7-34.0 [facility] Comment on above: Performed By: #### B MP #### [facility] [address] [place] [address] Dr. Maru Disla MCHC (RBC) [Mass/Vol] 31.7 g/dL Normal 29.9-35.2 [facility] Comment on above: Performed By: #### B MP #### [facility] [address] [place] [address] Dr. Maru Disla MCV (RBC) [Entitic vol] 93.6 fL Normal 81.0-99.0 [facility] Comment on above: Performed By: #### B MP #### [facility] [address] [place] [address] Dr. Maru Disla MONO # 1.5 103/ul Critically high 0.3-0.8 [facility] Comment on above: Performed By: #### B MP #### [facility] [address] [address] [address] Maru Disla Monocytes/100 WBC (Bld) 11.0 % Normal 1.7-12.0 [facility] Comment on above: Performed By: #### B MP #### [facility] [address] [address] [address] Maru Disla NEUT # 10.8 103/ul Critically high 1.4-6.5 [facility] Comment on above: Performed By: #### B MP #### [facility] [address] [address] [address] Maru Disla Neutrophils/100 WBC (Bld) 77.6 % Critically high 43.0-75.0 [facility] Comment on above: Performed By: #### B MP #### [facility] [address] [place] [address] Dr. Maru Disla Platelet mean volume (Bld) [Entitic vol] 10.1 fL Normal 9.5-13.5 [facility] Comment on above: Performed By: #### B MP #### [facility] [address] [place] [address] Dr. Maru Disla PLT 315 103/ul Normal 150-450 [facility] Comment on above: Performed By: #### B MP #### [facility] [address] [place] [address] Dr. Maru Disla RBC 5.59 106/ul Critically high 4.20-5.40 [facility] Comment on above: Performed By: #### B MP #### [facility] [address] [place] [address] Dr. Maru Disla WBC 13.9 103/ul Critically high 4.0-11.[address] [facility] Comment on above: Performed By: #### B MP #### [facility] [address] [place] [address] Dr. Maru Disla CULTURE BLOODon 04-05-2022 Microscopic examination of blood, culture Culture Observations: NO GROWTH AT 5 DAYS. Normal [facility] Comment on above: Performed By: #### B MP #### [facility] [address] [place] [address] Dr. Maru Disla [facility]-19 [facility] ([facility])on SARS-CoV-2 (COVID-19) RNA NICOLETTE+probe Ql (Unsp spec) Not detected Normal NOT DETECTED [facility] Comment on above: Result Comment: When diagnostic [...] for this test is supported by the Police Commissioner of Health and Human Service's declaration that [...] used). Performed By: #### M ALBR #### [facility] [address] [place] [address] Dr. Maru Disla INFLUENZA A AND B AGon 04-05 INFLUENZA A AG Negative Normal NEGATIVE SEE COMMENT [facility] Comment on above: Performed By: #### P OCGLUC #### [facility] [address] [place] [address] Dr. Maru Disla INFLUENZA B AG Negative Normal NEGATIVE SEE COMMENT [facility] Comment on above: Performed By: #### P OCGLUC #### [facility] [address] [place] [address] Dr. Maru Disla INTERNAL CONTROLS Within Normal Limits Normal Wi thin Normal Limits [facility] Comment on above: Performed By: #### P OCGLUC #### [facility] [address] [place] [address] Dr. Maru Disla LACTATE/LACTIC ACIDon 2021 Lactate [Moles/Vol] 3.1 mmol/L Critically high 0.4-1.9 [facility] Comment on above: Performed By: #### L ACT #### [facility] [address] [place] [address] Dr. Maru Disla Lactate [Moles/Vol] 3.1 mmol/L Critically high 0.4-1.9 [facility] Comment on above: Performed By: #### B MP #### [facility] [address] [place] [address] Dr. Maru Disla POINT OF CARE GLUCOSEon 11-0 Glucose [Mass/Vol] 290 mg/dL Critically high 74-106 [facility] Comment on above: Performed By: #### M ALBR #### [facility] [address] [place] [address] Dr. Maru Disla Glucose [Mass/Vol] 309 mg/dL Critically high 74-106 [facility] Comment on above: Performed By: #### A BG #### [facility] [address] [place] [address] Dr. Maru Disla Glucose [Mass/Vol] 289 mg/dL Critically high 74-106 [facility] Comment on above: Performed By: #### P OCGLUC #### [facility] [address] [place] [address] Dr. Maru Disla Glucose [Mass/Vol] 325 mg/dL Critically high -106 [facility] Comment on above: Performed By: #### M ALBR #### [facility] [address] [place] [address] Dr. Maru Disla PROF 14(COMP METB)on 022 Albumin [Mass/Vol] 3.3 g/dL Critically low 3.4-5.0 [facility] Comment on above: Performed By: #### P OCGLUC #### [facility] [address] [place] [address] Dr. Maru Disla Albumin/Globulin [Mass ratio] 0.7 {ratio} Normal [facility] Comment on above: Performed By: #### P OCGLUC #### [facility] [address] [place] [address] Dr. Maru Disla ALP [Catalytic activity/Vol] 105 U/L Normal 46-116 [facility] Comment on above: Performed By: #### P OCGLUC #### [facility] [address] [address] [address] Maru Disla ALT [Catalytic activity/Vol] 15 U/L Normal 14-59 [facility] Comment on above: Performed By: #### P OCGLUC #### [facility] [address] [address] [address] Maru Disla Anion gap [Moles/Vol] 13.2 mmol/L Normal [facility] Comment on above: Performed By: #### P OCGLUC #### [facility] [address] [address] [address] Maru Disla AST [Catalytic activity/Vol] 12 U/L Critically low 15-37 [facility] Comment on above: Performed By: #### P OCGLUC #### [facility] [address] [address] [address] Maru Disla Bilirubin [Mass/Vol] 0.4 mg/dL Normal 0.2-1.0 [facility] Comment on above: Performed By: #### P OCGLUC #### [facility] [address] [address] [address] Maru Disla Calcium [Mass/Vol] 8.8 mg/dL Normal 8.5-10.1 [facility] Comment on above: Performed By: #### P OCGLUC #### [facility] [address] [address] [address] Maru Disla Chloride [Moles/Vol] 101 mmol/L Normal 98-107 [facility] Comment on above: Performed By: #### P OCGLUC #### [facility] [address] [address] [address] Maru Disal CO2 [Moles/Vol] 26.0 mmol/L Normal 21.0-32.0 [facility] Comment on above: Performed By: #### P OCGLUC #### [facility] [address] [address] [address] Maru Disla Creatinine [Mass/Vol] 1.03 mg/dL Critically high 0.55-1.02 [facility] Comment on above: Performed By: #### P OCGLUC #### [facility] [address] [address] [address] Maru Disla EGFR-AF [place] >60 Normal >=60 [facility] Comment on above: Performed By: #### P OCGLUC #### [facility] [address] [address] [address] Maru Disla EGFR-NON AF [place] 54 mL/min/1.73m2 Critically low >=60 [facility] Comment on above: Performed By: #### P OCGLUC #### [facility] [address] [address] [address] Maru Disla Globulin (S) [Mass/Vol] 4.5 g/dL Normal [facility] Comment on above: Performed By: #### P OCGLUC #### [facility] [address] [address] [address] Maru Disla Glucose [Mass/Vol] 264 mg/dL Critically high 74-106 [facility] Comment on above: Performed By: #### P OCGLUC #### [facility] [address] [address] [address] Maru Disla Potassium [Moles/Vol] 4.2 mmol/L Normal 3.5-5.1 [facility] Comment on above: Performed By: #### P OCGLUC #### [facility] [address] [address] [address] Maru Disla Protein [Mass/Vol] 7.8 g/dL Normal 6.4-8.2 [facility] Comment on above: Performed By: #### P OCGLUC #### [facility] [address] [address] [address] Maru Disla Sodium [Moles/Vol] 136 mmol/L Normal 136-145 [facility] Comment on above: Performed By: #### P OCGLUC #### [facility] [address] [address] [address] Maru Disla Urea nitrogen [Mass/Vol] 14.0 mg/dL Normal 7.0-18.0 [facility] Comment on above: Performed By: #### P OCGLUC #### [facility] [address] [place] [address] Dr. Maru Disla Urea nitrogen/Creatinine [Mass ratio] 13.6 mg/mg Normal [facility] Comment on above: Performed By: #### P OCGLUC #### [facility] [address] [address] [address] Maru Disla TROPONIN, HIGH SENSITIVITYon 04-05-2022 HSTROP 10.5 pg/mL Normal 4.0-51.3 [facility] Comment on above: Result Comment: CUT- OFF POINTS HAVE BEEN ESTABLISHED BASED ON THE FOURTH UNIVERSAL DEFINITIONS OF MYOCARDIAL INFARCTION. THE UPPER REFERENCE LIMIT (URL) OF TROPONIN, DEFINED THE 99TH PERCENTILE OF cTnI DISTRIBUTION IN A REFERENCE POPULATION, HAS BEEN CONFIRMED THE DECISION THRESHOLD FOR DE DIAGNOSIS. Performed By: #### A BG #### [facility] [address] [place] [address] Dr. Maru Disla XR CHEST 1 Von [...] by: YECENIA MONTERO Date: 2022-04-05 06:51 Normal [facility] Vital Signs Date Time Vital Sign Value Performing Clinician Facility 12-14-2024 11:31-0400 Body mass index (BMI) [Ratio] 26.95 kg/m2 Maira Rush [employer] DIRECT[employer] Work Phone: [facility] 12-14-2024 11:31-0400 Body temperature 98.1 [degF] Maira Rush [employer] AND WELLNESS DIRECTOR Work Phone: [facility] 12-14-2024 11:31-0400 Body weight 75.75 kg Maira Rush [employer] AND WELLNESS DIRECTOR Work Phone: [facility] 12-14-2024 11:31-0400 Diastolic blood pressure 80 mm[Hg] Maira Aichholz [employer] AND WELLNESS DIRECTOR Work Phone: [facility] 12-14-2024 11:31-0400 Heart rate 93 /min Maira Aichholz FITNESS AND WELLNESS DIRECTOR Work Phone: [facility] 12-14-2024 11:31-0400 Respiratory rate 22 /min Maira Aichholz [employer] AND WELLNESS DIRECTOR Work Phone: [facility] 12-14-2024 11:31-0400 SaO2% (BldA) [Mass fraction] 93 % Maira Aichholz [employer] AND WELLNESS DIRECTOR Work Phone: [facility] 12-14-2024 11:31-0400 Systolic blood pressure 122 mm[Hg] Maira Aichholz [employer] AND WELLNESS DIRECTOR Work Phone: [facility] 12-01-2024 13:49-0400 Body mass index (BMI) [Ratio] 27.73 kg/m2 Maira Aichholz [employer] AND WELLNESS DIRECTOR Work Phone: [facility] 12-01-2024 13:49-0400 Body temperature 98.29 [degF] Maira Aichholz [employer] AND WELLNESS DIRECTOR Work Phone: [facility] 12-01-2024 13:49-0400 Body weight 77.93 kg Maira Aichholz FITNESS AND WELLNESS DIRECTOR Work Phone: [facility] 12-01-2024 13:49-0400 Diastolic blood pressure 70 mm[Hg] Maira Aichholz [employer] AND WELLNESS DIRECTOR Work Phone: [facility] 12-01-2024 13:49-0400 Heart rate 101 /min Maira Aichholz [employer] AND WELLNESS DIRECTOR Work Phone: [facility] 12-01-2024 13:49-0400 Respiratory rate 18 /min Maira Aichholz [employer] AND WELLNESS DIRECTOR Work Phone: [facility] 12-01-2024 13:49-0400 SaO2% (BldA) [Mass fraction] 95 % Maira Aichholz [employer] AND WELLNESS DIRECTOR Work Phone: [facility] 12-01-2024 13:49-0400 Systolic blood pressure 110 mm[Hg] Maira Aichholz [employer] AND WELLNESS DIRECTOR Work Phone: [facility] 10-14-2024 14:25-0400 Body mass index (BMI) [Ratio] 30.38 kg/m2 Maira Aichholz [employer] AND WELLNESS DIRECTOR Work Phone: [facility] 10-14-2024 14:25-0400 Body temperature 98.1 [degF] Maira Yoonholz [employer] AND WELLNESS DIRECTOR Work Phone: [facility] 10-14-2024 14:25-0400 Body weight 85.37 kg Maira Yoonholz [employer] AND WELLNESS DIRECTOR Work Phone: [facility] 10-14-2024 14:25-0400 Diastolic blood pressure 76 mm[Hg] Maira Aichholz [employer] AND WELLNESS DIRECTOR Work Phone: [facility] 10-14-2024 14:25-0400 Heart rate 87 /min Maira Yoonholz [employer] AND WELLNESS DIRECTOR Work Phone: [facility] 10-14-2024 14:25-0400 Respiratory rate 22 /min Maira Aichholz [employer] AND WELLNESS DIRECTOR Work Phone: [facility] 10-14-2024 14:25-0400 SaO2% (BldA) [Mass fraction] 94 % Maira Kenahholz [employer] AND WELLNESS DIRECTOR Work Phone: [facility] 10-14-2024 14:25-0400 Systolic blood pressure 108 mm[Hg] Maira Yoonholz [employer] AND WELLNESS DIRECTOR Work Phone: [facility] 08-06-2024 09:29-0500 Body height 167.6 cm Maira Aichholz [employer] AND WELLNESS DIRECTOR Work Phone: [facility] 08-06-2024 09:29-0500 Body mass index (BMI) [Ratio] 33.86 kg/m2 Maira Aichholz [employer] AND WELLNESS DIRECTOR Work Phone: [facility] 08-06-2024 09:29-0500 Body temperature 98.49 [degF] Maira Deutschz [employer] AND WELLNESS DIRECTOR Work Phone: [facility] 08-06-2024 09:29-0500 Body weight 95.17 kg Maira Deutschz [employer] AND WELLNESS DIRECTOR Work Phone: [facility] 08-06-2024 09:29-0500 Diastolic blood pressure 84 mm[Hg] Maira Fatouz [employer] AND WELLNESS DIRECTOR Work Phone: [facility] 08-06-2024 09:29-0500 Heart rate 78 /min Maira Fatouz [employer] AND WELLNESS DIRECTOR Work Phone: [facility] 08-06-2024 09:29-0500 Respiratory rate 20 /min Mairatessa Deutschz [employer] AND WELLNESS DIRECTOR Work Phone: [facility] 08-06-2024 09:29-0500 SaO2% (BldA) [Mass fraction] 93 % Mairatessa Deutschz [employer] AND WELLNESS DIRECTOR Work Phone: [facility] 08-06-2024 09:29-0500 Systolic blood pressure 140 mm[Hg] Maira Deutschz [employer] AND WELLNESS DIRECTOR Work Phone: [facility] 06-09-2024 10:59-0500 Body height 167.6 cm Maira Deutschz [employer] AND WELLNESS DIRECTOR Work Phone: [facility] 06-09-2024 10:59-0500 Body mass index (BMI) [Ratio] 33.86 kg/m2 Mairatessa Deutschz [employer] AND WELLNESS DIRECTOR Work Phone: [facility] 06-09-2024 10:59-0500 Body temperature 97.59 [degF] Mairatessa Deutschz [employer] AND WELLNESS DIRECTOR Work Phone: [facility] 06-09-2024 10:59-0500 Body weight 95.17 kg Mairatessa Deutschz [employer] AND WELLNESS DIRECTOR Work Phone: [facility] Comment on above: steel [employer] boots on 06-09-2024 10:59-0500 Diastolic blood pressure 68 mm[Hg] Maira Nettlesvaz [employer] AND WELLNESS DIRECTOR Work Phone: [facility] 06-09-2024 10:59-0500 Heart rate 77 /min Amira Aichholz FITNESS AND WELLNESS DIRECTOR Work Phone: [facility] 06-09-2024 10:59-0500 Respiratory rate 22 /min Maira Aichholz [employer] AND WELLNESS DIRECTOR Work Phone: [facility] 06-09-2024 10:59-0500 SaO2% (BldA) [Mass fraction] 94 % Maira Aichholz [employer] AND WELLNESS DIRECTOR Work Phone: [facility] 06-09-2024 10:59-0500 Systolic blood pressure 118 mm[Hg] Maira Aichholz [employer] AND WELLNESS DIRECTOR Work Phone: [facility] 05-28-2024 11:24-0500 Body height 167.6 cm Maira Aichholz [employer] AND WELLNESS DIRECTOR Work Phone: [facility] 05-28-2024 11:24-0500 Body mass index (BMI) [Ratio] 32.83 kg/m2 Maira Kenahholz [employer] AND WELLNESS DIRECTOR Work Phone: [facility] 05-28-2024 11:24-0500 Body temperature 98.1 [degF] Maira Aichholz [employer] AND WELLNESS DIRECTOR Work Phone: [facility] 05-28-2024 11:24-0500 Body weight 92.26 kg Maira Kenahholz FITNESS AND WELLNESS DIRECTOR Work Phone: [facility] 05-28-2024 11:24-0500 Diastolic blood pressure 66 mm[Hg] Maira Aichholz FITNESS AND WELLNESS DIRECTOR Work Phone: [facility] 05-28-2024 11:24-0500 Heart rate 73 /min Maira Aichholz FITNESS AND WELLNESS DIRECTOR Work Phone: [facility] 05-28-2024 11:24-0500 Respiratory rate 22 /min Maira Aichholz [employer] AND WELLNESS DIRECTOR Work Phone: [facility] 05-28-2024 11:24-0500 SaO2% (BldA) [Mass fraction] 92 % Maira Aichholz [employer] AND WELLNESS DIRECTOR Work Phone: [facility] 05-28-2024 11:24-0500 Systolic blood pressure 110 mm[Hg] Maira Deutschz [employer] AND WELLNESS DIRECTOR Work Phone: [facility] 05-19-2024 14:16-0500 Body height 167.6 cm Mairatessa Deutschz [employer] AND WELLNESS DIRECTOR Work Phone: [facility] 05-19-2024 14:16-0500 Body mass index (BMI) [Ratio] 33.77 kg/m2 Maira Yoonholz [employer] AND WELLNESS DIRECTOR Work Phone: [facility] 05-19-2024 14:16-0500 Body temperature 98.71 [degF] Maira Deutschz [employer] AND WELLNESS DIRECTOR Work Phone: [facility] 05-19-2024 14:16-0500 Body weight 94.89 kg Mairatessa Deutschz [employer] AND WELLNESS DIRECTOR Work Phone: [facility] 05-19-2024 14:16-0500 Diastolic blood pressure 66 mm[Hg] Maira Yoonholz [employer] AND WELLNESS DIRECTOR Work Phone: [facility] 05-19-2024 14:16-0500 Heart rate 71 /min Maira Fatouz FITNESS AND WELLNESS DIRECTOR Work Phone: [facility] 05-19-2024 14:16-0500 Respiratory rate 18 /min Maira Yoonholz FITNESS AND WELLNESS DIRECTOR Work Phone: [facility] 05-19-2024 14:16-0500 SaO2% (BldA) [Mass fraction] 93 % Mairatessa Deutschz [employer] AND WELLNESS DIRECTOR Work Phone: [facility] 05-19-2024 14:16-0500 Systolic blood pressure 120 mm[Hg] Maira Yoonholz [employer] AND WELLNESS DIRECTOR Work Phone: [facility] 05-06-2024 13:32-0500 Body height 167.6 cm Maira Yoonholz [employer] AND WELLNESS DIRECTOR Work Phone: [facility] 05-06-2024 13:32-0500 Body mass index (BMI) [Ratio] 33.77 kg/m2 Maira Fatouz [employer] AND WELLNESS DIRECTOR Work Phone: [facility] 05-06-2024 13:32-0500 Body temperature 97.81 [degF] Maira Aichholz FITNESS AND WELLNESS DIRECTOR Work Phone: [facility] 05-06-2024 13:32-0500 Body weight 94.89 kg Maira Aichholz FITNESS AND WELLNESS DIRECTOR Work Phone: [facility] 05-06-2024 13:32-0500 Diastolic blood pressure 76 mm[Hg] Maira Aichholz FITNESS AND WELLNESS DIRECTOR Work Phone: [facility] 05-06-2024 13:32-0500 Heart rate 73 /min Maira Aichholz FITNESS AND WELLNESS DIRECTOR Work Phone: [facility] 05-06-2024 13:32-0500 SaO2% (BldA) [Mass fraction] 97 % Maira Aichholz [employer] AND WELLNESS DIRECTOR Work Phone: [facility] 05-06-2024 13:32-0500 Systolic blood pressure 138 mm[Hg] Maira Aichholz [employer] AND WELLNESS DIRECTOR Work Phone: [facility] 04-22-2024 09:23-0500 Body height 167.6 cm Maira Aichholz [employer] AND WELLNESS DIRECTOR Work Phone: [facility] 04-22-2024 09:23-0500 Body mass index (BMI) [Ratio] 32.44 kg/m2 Maira Aichholz [employer] AND WELLNESS DIRECTOR Work Phone: [facility] 04-22-2024 09:23-0500 Body temperature 98.1 [degF] Maira Aichholz [employer] AND WELLNESS DIRECTOR Work Phone: [facility] 04-22-2024 09:23-0500 Body weight 91.17 kg Maira Aichholz FITNESS AND WELLNESS DIRECTOR Work Phone: [facility] 04-22-2024 09:23-0500 Diastolic blood pressure 78 mm[Hg] Maira Aichholz FITNESS AND WELLNESS DIRECTOR Work Phone: [facility] 04-22-2024 09:23-0500 Heart rate 68 /min Maira Nettlesdominic FITNESS AND WELLNESS DIRECTOR Work Phone: [facility] 04-22-2024 09:23-0500 Respiratory rate 20 /min Maira Rush [employer] AND WELLNESS DIRECTOR Work Phone: [facility] 04-22-2024 09:23-0500 SaO2% (BldA) [Mass fraction] 95 % Maira Nettlesdominic FITNESS AND WELLNESS DIRECTOR Work Phone: [facility] 04-22-2024 09:23-0500 Systolic blood pressure 122 mm[Hg] Maira Nettlesdominic [employer] AND WELLNESS DIRECTOR Work Phone: [facility] 04-21-2024 14:21-0500 Body height 167.6 cm Felton Allison MD Work Phone: [facility] 04-21-2024 14:21-0500 Body mass index (BMI) [Ratio] 33.09 kg/m2 Felton Allison MD Work Phone: [facility] 04-21-2024 14:21-0500 Body weight 92.99 kg Felton Allison MD Work Phone: [facility] 04-21-2024 14:21-0500 Diastolic blood pressure 72 mm[Hg] Felton Allison MD Work Phone: [facility] 04-21-2024 14:21-0500 Heart rate 77 /min Felton Allison MD Work Phone: [facility] 04-21-2024 14:21-0500 Respiratory rate 18 /min Felton Allison MD Work Phone: [facility] 04-21-2024 14:21-0500 Systolic blood pressure 112 mm[Hg] Felton Allison MD Work Phone: [facility] 03-11-2024 10:25-0400 Body height 167.6 cm Maira Escuderodaryn [employer] WELLNESS DIRECTOR Work Phone: [facility] 03-11-2024 10:25-0400 Body mass index (BMI) [Ratio] 33.28 kg/m2 Maira Yoonholz FITNESS AND WELLNESS DIRECTOR Work Phone: [facility] 03-11-2024 10:25-0400 Body temperature 98.1 [degF] Maira Kenahholz FITNESS AND WELLNESS DIRECTOR Work Phone: [facility] 03-11-2024 10:25-0400 Body weight 93.53 kg Maira Kenahholz FITNESS AND WELLNESS DIRECTOR Work Phone: [facility] 03-11-2024 10:25-0400 Diastolic blood pressure 80 mm[Hg] Maira Kenahholz FITNESS AND WELLNESS DIRECTOR Work Phone: [facility] 03-11-2024 10:25-0400 Heart rate 71 /min Maira Kenahholz FITNESS AND WELLNESS DIRECTOR Work Phone: [facility] 03-11-2024 10:25-0400 Respiratory rate 18 /min Maira Kenahholz FITNESS AND WELLNESS DIRECTOR Work Phone: [facility] 03-11-2024 10:25-0400 SaO2% (BldA) [Mass fraction] 96 % Maira Kenahholz [employer] AND WELLNESS DIRECTOR Work Phone: [facility] 03-11-2024 10:25-0400 Systolic blood pressure 122 mm[Hg] Maira Kenahholz [employer] AND WELLNESS DIRECTOR Work Phone: [facility] 02-25-2024 10:56-0400 Body height 167.6 cm Maira Kenahholz FITNESS AND WELLNESS DIRECTOR Work Phone: [facility] 02-25-2024 10:56-0400 Body mass index (BMI) [Ratio] 33.51 kg/m2 Maira Aichholz FITNESS AND WELLNESS DIRECTOR Work Phone: [facility] 02-25-2024 10:56-0400 Body temperature 98.1 [degF] Maira Kenahholz [employer] AND WELLNESS DIRECTOR Work Phone: [facility] 02-25-2024 10:56-0400 Body weight 94.17 kg Maira Kenahholz FITNESS AND WELLNESS DIRECTOR Work Phone: [facility] 02-25-2024 10:56-0400 Diastolic blood pressure 76 mm[Hg] Maira Aichholz FITNESS AND WELLNESS DIRECTOR Work Phone: [facility] 02-25-2024 10:56-0400 Heart rate 77 /min Maira Aichholz FITNESS AND WELLNESS DIRECTOR Work Phone: [facility] 02-25-2024 10:56-0400 Respiratory rate 19 /min Maira Aichholz FITNESS AND WELLNESS DIRECTOR Work Phone: [facility] 02-25-2024 10:56-0400 SaO2% (BldA) [Mass fraction] 97 % Maira Aichholz [employer] AND WELLNESS DIRECTOR Work Phone: [facility] 02-25-2024 10:56-0400 Systolic blood pressure 122 mm[Hg] Maira Aichholz FITNESS AND WELLNESS DIRECTOR Work Phone: [facility] 02-17-2024 11:07-0400 Body height 167.6 cm Maira Aichholz FITNESS AND WELLNESS DIRECTOR Work Phone: [facility] 02-17-2024 11:07-0400 Body mass index (BMI) [Ratio] 34.19 kg/m2 Maira Aichholz FITNESS AND WELLNESS DIRECTOR Work Phone: [facility] 02-17-2024 11:07-0400 Body temperature 98.49 [degF] Maira Aichholz FITNESS AND WELLNESS DIRECTOR Work Phone: [facility] 02-17-2024 11:07-0400 Body weight 96.07 kg Maira Aichholz FITNESS AND WELLNESS DIRECTOR Work Phone: [facility] 02-17-2024 11:07-0400 Diastolic blood pressure 82 mm[Hg] Maira Aichholz FITNESS AND WELLNESS DIRECTOR Work Phone: [facility] 02-17-2024 11:07-0400 Heart rate 78 /min Maira Aichholz FITNESS AND WELLNESS DIRECTOR Work Phone: [facility] 02-17-2024 11:07-0400 Respiratory rate 19 /min Maira Aichholz FITNESS AND WELLNESS DIRECTOR Work Phone: [facility] 02-17-2024 11:07-0400 SaO2% (BldA) [Mass fraction] 98 % Maira Victor Manuel FITNESS AND WELLNESS DIRECTOR Work Phone: [facility] 02-17-2024 11:07-0400 Systolic blood pressure 118 mm[Hg] Maira Fatouz FITNESS AND WELLNESS DIRECTOR Work Phone: [facility] 07-18-2023 14:27-0500 Body height 167.6 cm Maira Fatouz FITNESS AND WELLNESS DIRECTOR Work Phone: [facility] 07-18-2023 14:27-0500 Body mass index (BMI) [Ratio] 38.29 kg/m2 Maira Fatouz FITNESS AND WELLNESS DIRECTOR Work Phone: [facility] 07-18-2023 14:27-0500 Body temperature 98.01 [degF] Maira Victor Manuel FITNESS AND WELLNESS DIRECTOR Work Phone: [facility] 07-18-2023 14:27-0500 Body weight 107.59 kg Maira Victor Manuel FITNESS AND WELLNESS DIRECTOR Work Phone: [facility] 07-18-2023 14:27-0500 Diastolic blood pressure 78 mm[Hg] Maira Victor Manuel FITNESS AND WELLNESS DIRECTOR Work Phone: [facility] 07-18-2023 14:27-0500 Heart rate 79 /min Maira Victor Manuel FITNESS AND WELLNESS DIRECTOR Work Phone: [facility] 07-18-2023 14:27-0500 Respiratory rate 19 /min Maira Fatouz FITNESS AND WELLNESS DIRECTOR Work Phone: [facility] 07-18-2023 14:27-0500 SaO2% (BldA) [Mass fraction] 97 % Maira Victor Manuel FITNESS AND WELLNESS DIRECTOR Work Phone: [facility] 07-18-2023 14:27-0500 Systolic blood pressure 142 mm[Hg] Maira Victor Manuel FITNESS AND WELLNESS DIRECTOR Work Phone: [facility] Healthcare Encounters Encounter Date Encounter Type Care Provider Facility Start: 01-15-2025 End: 01-15-2025 Emergency department patient [facility] Start: 01-14-2025 End: 01-16-2025 Refill Maira Victor Manuel FITNESS AND WELLNESS DIRECTOR Work Phone: [facility] Comment on above: Vitamin D deficiency (Primary Dx); Primary hypertension ; Edema of extremities; COPD mixed type ([facility]); Type 2 diabetes mellitus with diabetic neuropathy, with long-term current use of insulin ([facility]) Start: 01-08-2025 End: 01-08-2025 Bamboo flowsheet Bob Medina RN [facility] Patient Education Start: 01-08-2025 End: 01-08-2025 Bamboo flowsheet Bob Medina RN [facility] Patient Education Start: 01-08-2025 End: 01-08-2025 ambulatory BOB MEDINA Not Available Start: 12-14-2024 End: 12-14-2024 Bamboo flowsheet Maira Victor Manuel FITNESS AND WELLNESS DIRECTOR Work Phone: [facility] Start: 12-14-2024 End: 12-14-2024 Bamboo flowsheet Maira Victor Manuel FITNESS AND WELLNESS DIRECTOR Work Phone: [facility] Start: 12-14-2024 End: 12-14-2024 Office outpatient visit 25 minutes Maira Rush FITNESS AND WELLNESS DIRECTOR Work Phone: [facility] [place] Comment on above: Type 2 diabetes gayatri itus without complication, with long-term current use of insulin ([facility]) (Primary Dx); Gill rash of groin; Cigarette nicotine dependence without complication; Urge and stress incontinence; Primary hypertension ; Paroxysmal atrial fibrillation ([facility]); Medical non-compliance Start: 12-14-2024 End: 12-14-2024 Refill Maira Victor Manuel FITNESS AND WELLNESS DIRECTOR Work Phone: [facility] [place] Comment on above: 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 Start: 12-01-2024 End: 12-01-2024 Bamboo flowsheet Maira Victor Manuel FITNESS AND WELLNESS DIRECTOR Work Phone: [facility] Start: 12-01-2024 End: 12-01-2024 Bamboo flowsheet Maira Aichholz FITNESS AND WELLNESS DIRECTOR Work Phone: [facility] Start: 12-01-2024 End: 12-01-2024 ambulatory MAIRA AICHHOLZ Not Available Start: 12-01-2024 End: 12-01-2024 Office outpatient visit 25 minutes Maira Aichholz FITNESS AND WELLNESS DIRECTOR Work Phone: [facility] Comment on above: Gill infection of genital region (Primary Dx); Type 2 diabetes mellitus without complication, with long-term current use of insulin ([facility]); Gill rash of groin; Abscess of left groin Start: 11-25-2024 End: 11-25-2024 Orders Only Maira Aichholz FITNESS AND WELLNESS DIRECTOR Work Phone: [facility] Comment on above: Primary hypertension (Primary Dx) Start: 11-17-2024 End: 11-18-2024 Refill Maira Aichholz FITNESS AND WELLNESS DIRECTOR Work Phone: [facility] [place] Comment on above: COPD mixed type ([facility] ) Start: 10-16-2024 End: 10-16-2024 Orders Only Maira Aichholz FITNESS AND WELLNESS DIRECTOR Work Phone: [facility] [place] Comment on above: Type 2 diabetes gayatri itus without complication, with long-term current use of insulin (Primary Dx); Obesity (BMI 30-39.9); Abscess of left groin Start: 10-14-2024 End: 10-14-2024 ambulatory MAIRA AICHHOLZ Not Available Start: 10-14-2024 End: 10-14-2024 Office outpatient visit 25 minutes Maira Aichholz FITNESS AND WELLNESS DIRECTOR Work Phone: [facility] Comment on above: Abscess of left groi n (Primary Dx); Primary hypertension (CMS/[facility]); Type 2 diabetes mellitus without complication, with long-term current use of insulin; Cigarette nicotine dependence without complication; Encounter for screening mammogram for malignant neoplasm of breast; Gill rash of groin; Mild episode of recurrent major depressive disorder (HCC) (CMS/HCC) Start: 10-14-2024 End: 10-14-2024 Bamboo flowsheet Maira Aichholz FITNESS AND WELLNESS DIRECTOR Work Phone: [facility] Start: 10-14-2024 End: 10-14-2024 Bamboo flowsheet Maira Rush FITNESS AND WELLNESS DIRECTOR Work Phone: [facility] Start: 10-06-2024 [...] Start: 09-21-2024 End: 09-21-2024 Refill Mairatessa Rush FITNESS AND WELLNESS DIRECTOR Work Phone: [facility] Comment on above: JORDAN (generalized anx iety disorder) (CMS/HCC); Mild episode of recurrent major depressive disorder (HCC) (CMS/HCC) Start: 09-18-2024 End: 09-20-2024 Refill Maira Rush FITNESS AND WELLNESS DIRECTOR Work Phone: [facility] Comment on [...] 08-06-2024 End: 08-06-2024 Bamboo flowsheet Maira Rush FITNESS AND WELLNESS DIRECTOR Work Phone: [facility] Start: 08-06-2024 End: 08-06-2024 Bamboo flowsheet Maira Rush FITNESS AND WELLNESS DIRECTOR Work Phone: [facility] Start: 08-06-2024 End: 08-06-2024 Office outpatient visit 25 minutes Maira Rush FITNESS AND WELLNESS DIRECTOR Work Phone: [facility] [place] Comment on above: JORDAN (generalized anx iety disorder) ([facility]/HCC) (Primary Dx); SANTO (obstructive sleep apnea); Type 2 diabetes mellitus with diabetic polyneuropathy, with long-term current use of insulin ([facility]); COPD mixed type ([facility]); Oxygen dependent; Paroxysmal atrial fibrillation ([facility]); Primary hypertension ([facility]); Gastroesophageal reflux disease, unspecified whether esophagitis present; Obesity (BMI 30-39.9); Type 2 diabetes mellitus without complication, with long-term current use of insulin ([facility]); Anxiety and depression ([facility]/HCC); 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 ([facility]); Medical non-compliance; Mild episode of recurrent major depressive disorder (HCC) ([facility]); Cigarette nicotine dependence without complication; Encounter for screening mammogram for malignant neoplasm of breast; Diabetic polyneuropathy associated with type 2 diabetes mellitus ([facility]); Mixed hyperlipidemia ([facility]); Edema of extremities Start: 08-06-2024 End: 08-06-2024 ambulatory MAIRA VICTOR MANUEL Not Available Start: 07-20-2024 End: 07-20-2024 Refill Mairatessa Rush FITNESS AND WELLNESS DIRECTOR Work Phone: [facility] [place] Comment on above: Type 2 diabetes gayatri itus with diabetic neuropathy, with long- term current use of insulin ([facility]) Start: 07-16-2024 End: 07-16-2024 Refill Mairatessa Rush FITNESS AND WELLNESS DIRECTOR Work Phone: [facility] [place] Comment on above: Diarrhea, unspecifie d type (Primary Dx) Start: 07-14-2024 End: 07-16-2024 External Result Encounter Maira Rush FITNESS AND WELLNESS DIRECTOR Work Phone: [facility] Unsolicited Start: 07-14-2024 End: 07-16-2024 External Result Encounter Maira Aichholz FITNESS AND WELLNESS DIRECTOR Work Phone: [facility] Unsolicited Start: 07-14-2024 End: 07-14-2024 Orders Only Maira Aichholz FITNESS AND WELLNESS DIRECTOR Work Phone: [facility] Comment on above: Diarrhea, unspecifie d type (Primary Dx) Start: 07-08-2024 End: 07-08-2024 Clinisync Result Encounter Maira Aichholz FITNESS AND WELLNESS DIRECTOR Work Phone: [facility] Unsolicited Start: 07-08-2024 End: 07-08-2024 Clinisync Result Encounter Maira Aichholz FITNESS AND WELLNESS DIRECTOR Work Phone: [facility] Unsolicited Start: 07-06-2024 End: 07-06-[address] [facility] Start: 07-01-2024 End: 07-01-2024 Refill Maira Aichholz FITNESS AND WELLNESS DIRECTOR Work Phone: [facility] Comment on above: Type 2 diabetes gayatri itus without complication, with long-term current use of insulin (CMS/HCC) (Primary Dx) Start: 06-11-2024 End: 06-11-2024 Orders Only Maira Aichholz FITNESS AND WELLNESS DIRECTOR Work Phone: [facility] Comment on above: 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 (CMS/HCC) (Primary Dx) Start: 06-09-2024 End: 06-09-2024 Bamboo flowsheet Maira Aichholz FITNESS AND WELLNESS DIRECTOR Work Phone: [facility] Start: 06-09-2024 End: 06-09-2024 Bamboo flowsheet Maira Aichholz FITNESS AND WELLNESS DIRECTOR Work Phone: [facility] Start: 06-09-2024 End: 06-09-2024 Office outpatient visit 25 minutes Maira Aichholz FITNESS AND WELLNESS DIRECTOR Work Phone: [facility] Comment on above: COVID (Primary Dx); Type 2 diabetes mellitus with diabetic polyneuropathy ([facility]/HCC); Type 2 diabetes mellitus with hyperglycemia ([facility]/HCC); 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 classified elsewhere ([facility]/HCC); retirement (current) use of insulin ([facility]/HCC); COPD mixed type ([facility]/HCC); Paroxysmal atrial fibrillation ([facility]/HCC); Primary hypertension ([facility]/HCC); Tobacco user Start: 06-09-2024 End: 06-09-2024 ambulatory MAIRATessa RUSH Not Available Start: 05-28-2024 End: 05-28-2024 Refill Maira Rush FITNESS AND WELLNESS DIRECTOR Work Phone: [facility] Comment on above: COPD mixed type (CMS /HCC) Start: 05-28-2024 End: 05-28-2024 Office outpatient visit 25 minutes Maira Rush FITNESS AND WELLNESS DIRECTOR Work Phone: [facility] Comment on above: Oxygen dependent (Pr imary Dx); COPD mixed type (CMS/HCC); Obesity (BMI 30-39.9); COPD with acute exacerbation ([facility]/HCC) Start: 05-28-2024 End: 05-28-2024 Orders Only Maira Rush FITNESS AND WELLNESS DIRECTOR Work Phone: [facility] Comment on above: Lung nodule, multipl e (Primary Dx); COPD mixed type (CMS/HCC) 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 ([facility]/HCC) (Primary Dx) Start: 05-25-2024 End: 05-25-2024 Clinisync Result Encounter Generic External Data Provider [facility] Unsolicited Start: 05-25-2024 End: 05-25-2024 Clinisync Result Encounter Generic External Data Provider [facility] External Department Unsolicited Start: 05-19-2024 End: 05-19-2024 Bamboo flowsheet Maira Rush FITNESS AND WELLNESS DIRECTOR Work Phone: [facility] Start: 05-19-2024 End: 05-19-2024 Bamboo flowsheet Maira Rush FITNESS AND WELLNESS DIRECTOR Work Phone: [facility] Start: 05-19-2024 End: 05-19-2024 Office outpatient visit 15 minutes Maira Rush FITNESS AND WELLNESS DIRECTOR Work Phone: [facility] Comment on above: Right wrist pain (Pr imary Dx); Obesity (BMI 30-39.9) Start: 05-19-2024 End: 05-19-2024 ambulatory MAIRA YOONHOLZ Not Available Start: 05-18-2024 End: 05-18-2024 Orders Only Maira Rush FITNESS AND WELLNESS DIRECTOR Work Phone: [facility] Comment on above: Lung nodule, multipl e (Primary Dx) Start: 05-06-2024 End: 05-06-2024 Bamboo flowsheet Maira Rush FITNESS AND WELLNESS DIRECTOR Work Phone: [facility] Start: 05-06-2024 End: 05-06-2024 Bamboo flowsheet Maira Rush FITNESS AND WELLNESS DIRECTOR Work Phone: [facility] Start: 05-06-2024 End: 05-06-2024 Office outpatient visit 25 minutes Maira Rush FITNESS AND WELLNESS DIRECTOR Work Phone: [facility] Comment on above: COPD mixed type [...] End: 04-22-2024 Patient encounter status Maira Rush FITNESS AND WELLNESS DIRECTOR Work Phone: [facility] Start: 04-22-2024 End: 04-22-2024 Periodic preventive med est patient 40-64yrs Maira Rush FITNESS AND WELLNESS DIRECTOR Work Phone: [facility] Comment on above: Encounter for wellne ss examination (Primary Dx); Osteoporosis, unspecified osteoporosis type, unspecified pathological fracture presence ([facility]); Open wound of buttock, unspecified laterality, initial encounter; Type 2 diabetes mellitus without complication, with long-term current use of insulin ([facility]); Obesity (BMI 30-39.9); Tobacco user; Anxiety and depression ([facility]); Type 2 diabetes mellitus with diabetic neuropathy, with long-term current use of insulin ([facility]); COPD mixed type ([facility]); Diabetic polyneuropathy associated with type 2 diabetes mellitus ([facility]); Gastroesophageal reflux disease, unspecified whether esophagitis present; Mixed hyperlipidemia ([facility]); Primary hypertension ([facility]); Edema of extremities; Lung nodule, multiple; Lymphadenopathy, generalized; Vitamin D deficiency; Oxygen dependent; Community acquired pneumonia, unspecified laterality Start: 04-22-2024 End: 04-22-2024 ambulatory MAIRA RUSH Not Available Start: 04-21-2024 End: 04-21-2024 Office outpatient visit 25 minutes Felton Allison MD Work Phone: [facility] Comment on above: Type 2 diabetes gayatri itus with hyperglycemia, with long-term current use of insulin ([facility]) (Primary Dx); Encounter for dietary consultation; Vitamin D deficiency; Primary hypertension ([facility]); Hyperlipemia, mixed ([facility]); Insulin long-term use ([facility]); Class 1 obesity due to excess calories without serious comorbidity with body mass index (BMI) of 33.0 to 33.9 in adult Start: 04-21-2024 End: 04-21-2024 ambulatory FELTON ALLISON Not Available Start: 04-09-2024 End: 04-09-2024 Clinisync Result Encounter Maira Rush FITNESS AND WELLNESS DIRECTOR Work Phone: [facility] Unsolicited Start: 04-09-2024 End: 04-09-2024 Clinisync Result Encounter Maira Rush FITNESS AND WELLNESS DIRECTOR Work Phone: [facility] Unsolicited Start: 04-09-2024 End: 04-09-2024 Telephone encounter Maira Rush NP Work Phone: [facility] Start: 03-20-2024 End: 03-20-2024 ambulatory MAIRA Kel DEUTSCHZ [facility] Start: 03-18-2024 End: 03-18-2024 Refill Maira Aichholz FITNESS AND WELLNESS DIRECTOR Work Phone: [facility] Comment on above: COPD mixed type (CMS /HCC) (Primary Dx); URI, acute COPD mixed type (CMS /HCC); URI, acute Start: 03-16-2024 End: 03-16-2024 Refill Maira Aichholz FITNESS AND WELLNESS DIRECTOR Work Phone: [facility] Comment on above: Primary hypertension (CMS/HCC) (Primary Dx); Edema of extremities Start: 03-11-2024 End: 03-11-2024 Bamboo flowsheet Maira Aichholz FITNESS AND WELLNESS DIRECTOR Work Phone: [facility] Start: 03-11-2024 End: 03-11-2024 Bamboo flowsheet Maira Aichholz FITNESS AND WELLNESS DIRECTOR Work Phone: [facility] Start: 03-11-2024 End: 03-11-2024 Office outpatient visit 25 minutes Maira Aichholz FITNESS AND WELLNESS DIRECTOR Work Phone: [facility] Comment on above: Viral upper respirat ory tract infection (Primary Dx); Tobacco user; Open wound; Obesity (BMI 30-39.9); Type 2 diabetes mellitus without complication, with long-term current use of insulin (CMS/HCC) Start: 03-11-2024 End: 03-11-2024 ambulatory MAIRA AICHHOLZ Not Available Start: 02-25-2024 End: 02-25-2024 Bamboo flowsheet Maira Aichholz FITNESS AND WELLNESS DIRECTOR Work Phone: [facility] Start: 02-25-2024 End: 02-25-2024 Bamboo flowsheet Maira Aichholz FITNESS AND WELLNESS DIRECTOR Work Phone: [facility] Start: 02-25-2024 End: 02-25-2024 Office outpatient visit 25 minutes Maira Aichholz FITNESS AND WELLNESS DIRECTOR Work Phone: [facility] [place] Comment on above: Open wound of buttoc k, unspecified laterality, initial encounter (Primary Dx); Type 2 diabetes mellitus without complication, with long-term current use of insulin (CMS/[facility]); Obesity (BMI 30-39.9); Dizziness and giddiness Start: 02-25-2024 End: 02-25-2024 ambulatory MAIRA AICHHOLZ Not Available Start: 02-24-2024 End: 02-26-2024 Clinisync Result Encounter Generic External Data Provider [facility] External Department Unsolicited Start: 02-24-2024 End: 02-26-2024 Clinisync Result Encounter Generic External Data Provider [facility] External Department Unsolicited Start: 02-17-2024 End: 02-17-2024 Bamboo flowsheet Maira Rush FITNESS AND WELLNESS DIRECTOR Work Phone: [facility] Start: 02-17-2024 End: 02-17-2024 Bamboo flowsheet Mairatessa Rush FITNESS AND WELLNESS DIRECTOR Work Phone: [facility] Start: 02-17-2024 End: 02-17-2024 Office outpatient visit 25 minutes Maira Rush FITNESS AND WELLNESS DIRECTOR Work Phone: [facility] [place] Comment on above: Type 2 diabetes gayatri itus with hyperglycemia (CMS/HCC) (Primary Dx); Primary hypertension (CMS/HCC); Edema of extremities; Type 2 diabetes mellitus without complication, with long-term current use of insulin (CMS/[facility]); Vitamin D deficiency; Tobacco user; Dizziness and giddiness; Atrial fibrillation, unspecified type (CMS/HCC); COPD mixed type (CMS/HCC) Start: 02-17-2024 End: 02-17-2024 ambulatory MAIRA AICHHOLZ Not Available Start: 01-23-2024 End: 01-23-[address] [facility] Start: 07-18-2023 End: 07-18-2023 Office outpatient visit 25 minutes Mairatessa Rush FITNESS AND WELLNESS DIRECTOR Work Phone: [facility] [place] Comment on above: Primary hypertension (CMS/HCC) (Primary Dx); Type 2 diabetes mellitus with diabetic neuropathy, with long-term current use of insulin ([facility]); Gastroesophageal reflux disease, unspecified whether esophagitis present; Vitamin D deficiency; Type 2 diabetes mellitus with complication, without long-term current use of insulin ([facility]); Mixed hyperlipidemia ([facility]); Encounter for screening mammogram for malignant neoplasm of breast; SANTO (obstructive sleep apnea); COPD mixed type ([facility]); Anxiety and depression ([facility]); COVID; Open wound; Morbid obesity with body mass index (BMI) of 40.0 to 49.9 ([facility]) Start: 07-18-2023 Bamboo flowsheet Maira Rush FITNESS AND WELLNESS DIRECTOR Work Phone: [facility] Start: 07-18-2023 Bamboo flowsheet Maira Rush FITNESS AND WELLNESS DIRECTOR Work Phone: [facility] Start: 10-02-2022 End: 10-03-2022 ambulatory DMITRY RUSH Facility:[facility] Start: 08-09-2022 End: 08-10-2022 ambulatory DMITRY RUSH Facility:[facility] Start: 07-12-2022 ambulatory [facility] Start: 06-21-2022 End: 06-22-[address] CORINE ANGELA Facility:[facility] Start: 06-20-2022 End: 06-21-2022 ambulatory DMITRY RUSH Facility:[facility] Start: 06-07-2022 End: 06-07-2022 ambulatory Robert Hart Facility:[facility] Start: 04-05-2022 End: 04-09-2022 Evaluation and management of inpatient DR TERI BLOCK . Facility:[facility] Start: 11-23-2021 End: 11-23-2021 ambulatory DMITRY RUSH Facility:[facility] Start: 09-30-2018 End: 10-01-2018 Patient encounter procedure DEFAULT PHYSICIAN Facility:[facility] Start: 09-15-2018 End: 09-16-2018 Patient encounter procedure DEFAULT PHYSICIAN Facility:[facility] Procedures Date Procedure Procedure Detail Performing Clinician Start: 12-14-2024 Hemoglobin glycosylated a1c Maira Rush FITNESS AND WELLNESS DIRECTOR Work Phone: Start: 10-04-2024 AEROBIC CULTURE Generic External Data Provider Start: 07-14-2024 GASTROINTESTINAL PLU S PARASITES (HTRX) Maira Rush FITNESS AND WELLNESS DIRECTOR Work Phone: Start: 07-08-2024 CT ABDOMEN WO/W CON Keisha Rush FITNESS AND WELLNESS DIRECTOR Work Phone: Start: 05-25-2024 ALL RENAL FUNCTION PANEL Generic External Data Provider Start: 04-21-2024 Gluc bld gluc mntr d ev cleared fda spec home use Felton Allison MD Work Phone: Start: 04-09-2024 [facility] UA (CLEAN/CATCH) MICROSCOPIC IF INDICATE Maira Rush FITNESS AND WELLNESS DIRECTOR Work Phone: Start: 02-24-2024 Bacteria identified in Urine by Culture Generic External Data Provider Start: 08-05-2023 Mammography Maira santiago FITNESS AND WELLNESS DIRECTOR Work Phone: Start: 06-19-2022 Mammography Maira santiago FITNESS AND WELLNESS DIRECTOR Work Phone: Start: 02-14-2015 Colonoscopy Maira santiago FITNESS AND WELLNESS DIRECTOR Work Phone: Plan of Treatment Date Care Activity Detail Author Start: 05-25-2025 Urine screening for protein Diabetes: Urine Protein Screening [facility] Start: 03-16-2025 Hemoglobin A1c measurement Diabetes: Hemoglobin A1C [facility] Start: 02-14-2025 Screening for malignant neoplasm of colon [facility] Start: 02-11-2025 End: 02-11-2025 Clinical Support 02/11/2025 11:30 AM EDT Clinical Support [facility] Patient Education [address] [facility] [place] [id number] Bob Medina, BARI Gonzales Patient Education Start: 01-14-2025 End: 01-14-2025 Patient encounter procedure 01/14/2025 11:00 AM EDT Office Visit [facility] [address] [place] [id number] Maira Rush NP [address] [place] [id number] [facility] Start: 12-14-2024 End: 12-14-2025 Comprehensive metabolic 2000 panel - Serum or Plasma Comprehensive metabolic panel Lab Routine Type 2 diabetes mellitus without complication, with long-term current use of insulin (HCC) Expected: 12/14/2024 (Approximate), Expires: 12/14/2025 [facility] Work Phone: Comment on above: Expected: 12/14/2024 (Approximate), Expi res: 12/14/2025 Start: 12-14-2024 End: 12-14-2025 Lipid 1996 panel - Serum or Plasma Lipid panel Lab Routine Type 2 diabetes mellitus without complication, with long-term current use of insulin (HCC) Expected: 12/14/2024 (Approximate), Expires: 12/14/2025 [facility] Comment on above: Expected: 12/14/2024 (Approximate), Expi res: 12/14/2025 Start: 12-14-2024 End: 12-14-2024 Patient encounter procedure [facility] Comment on above: Type 2 diabetes mellitus without complic ation, with long-term current use of insulin (HCC) (Primary Dx); Gill rash of groin; Cigarette nicotine dependence without complication; Urge and stress incontinence Start: 11-26-2024 End: 05-28-2025 CT Chest W contrast IV CT chest w IV contrast Imaging Routine Lung nodule, multiple Expected: 11/26/2024 (Approximate), Expires: 05/28/2025 [facility] [employer] Work Phone: Comment on above: Expected: 11/26/2024 (Approximate), Expi res: 05/28/2025 Start: 11-25-2024 End: 11-25-2025 Basic metabolic 1998 panel - Serum or Plasma Basic metabolic panel Lab Routine Primary hypertension Expected: 11/25/2024 (Approximate), Expires: 11/25/2025 [facility] Work Phone: Comment on above: Expected: 11/25/2024 (Approximate), Expi res: 11/25/2025 Start: 11-09-2024 End: 11-09-2024 Patient encounter procedure 11/09/2024 9:40 AM EDT Office Visit [facility] [address] [place] [phone] Maira Rush, FITNESS AND WELLNESS DIRECTOR [address] [place] [phone] [facility] Start: 10-14-2024 End: 10-14-2024 Patient encounter procedure 10/14/2024 2:20 PM EDT Office Visit [facility] [address] [place] [address] Maira Rush, ARLEN [address] [place] [phone] [facility] Start: 10-14-2024 End: 12-14-2025 MG Breast - bilateral Screening Bilateral screening mammogram Imaging Routine Encounter for screening mammogram for malignant neoplasm of breast Expected: 10/14/2024 (Approximate), Expires: 12/14/2025 [facility] Work Phone: Comment on above: Expected: 10/14/2024 (Approximate), Expi res: 12/14/2025 Start: 09-02-2024 End: 09-02-2024 Patient encounter procedure 09/02/2024 11:10 AM EDT Office Visit [facility] [address] [place] [phone] Felton Allison MD [address] [place] [address] [facility] Start: 08-06-2024 End: 10-06-2025 MG Breast - bilateral Screening Bilateral screening mammogram Imaging Routine Encounter for screening mammogram for malignant neoplasm of breast Expected: 08/06/2024 (Approximate), Expires: 10/06/2025 [facility] Work Phone: Comment on above: Expected: 08/06/2024 (Approximate), Expi res: 10/06/2025 Start: 08-06-2024 End: 08-06-2024 Patient encounter procedure [facility] Comment on above: SANTO (obstructive sleep apnea) (Primary D x); Type 2 diabetes mellitus with diabetic polyneuropathy, with long-term current use of insulin ([facility]/HCC); COPD mixed type ([facility]/HCC); Oxygen dependent; Paroxysmal atrial fibrillation ([facility]/HCC); Primary hypertension ([facility]); Gastroesophageal reflux disease, unspecified whether esophagitis present; Obesity (BMI 30-39.9); Type 2 diabetes mellitus without complication, with long-term current use of insulin ([facility]/HCC); Anxiety and depression ([facility]); 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 ([facility]); Medical non-compliance; JORDAN (generalized anxiety disorder) ([facility]); Mild episode of recurrent major depressive disorder (HCC) ([facility]); Cigarette nicotine dependence without complication; Encounter for screening mammogram for malignant neoplasm of breast Start: 08-04-2024 Screening for malignant neoplasm of breast Mammogram [facility] Start: 08-04-2024 Urine screening for protein Diabetes: Urine Protein Screening [facility] Start: 07-23-2024 Hemoglobin A1c measurement Diabetes: Hemoglobin A1C [facility] Start: 07-22-2024 Hemoglobin A1c measurement Diabetes: Hemoglobin A1C [facility] Start: 07-21-2024 End: 07-21-2024 Patient encounter procedure 07/21/2024 2:20 PM EST Office Visit [facility] [address] [place] [address] Felton Allison MD [address] [place] [address] [facility] Start: 07-21-2024 End: 07-21-2024 Patient encounter procedure 07/21/2024 10:40 AM EST Office Visit [facility] [address] [place] [address] Felton Allison MD [address] [place] [address] [facility] Start: 07-14-2024 End: 07-14-2025 GASTROINTESTINAL PLUS PARASITES (HTRX) GASTROINTESTINAL PLUS PARASITES (HTRX) Lab Routine Diarrhea, unspecified type Expected: 07/14/2024 (Approximate), Expires: 07/14/2025 [facility] Work Phone: Comment on above: Expected: 07/14/2024 (Approximate), Expi res: 07/14/2025 Start: 07-09-2024 Hemoglobin A1c measurement Diabetes: Hemoglobin A1C [facility] Start: 06-11-2024 End: 06-11-2025 CT Abdomen WO and W contrast IV CT abdomen w and wo IV contrast Imaging Routine 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 (CMS/HCC) Expected: 06/11/2024, Expires: 06/11/2025 [facility] Work Phone: Comment on above: Expected: 06/11/2024, Expires: Start: 06-09-2024 End: 06-09-2024 Patient encounter procedure 06/09/2024 11:00 AM EST Office Visit [facility] [address] [place] [phone] Maira Rush, ARLEN [address] [place] [address] COPD mixed type (CMS/HCC) (Primary Dx); Type 2 diabetes mellitus with diabetic polyneuropathy (CMS/HCC); Type 2 diabetes mellitus with hyperglycemia (CMS/HCC); 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/HCC); retirement (current) use of insulin (CMS/HCC); Paroxysmal atrial fibrillation (CMS/HCC); Primary hypertension (CMS/HCC); Tobacco user; COVID [facility] Comment on above: COPD mixed type (CMS/HCC) (Primary Dx); Type 2 diabetes mellitus with diabetic polyneuropathy (CMS/HCC); Type 2 diabetes mellitus with hyperglycemia (CMS/HCC); 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/HCC); 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 (CMS/HCC); Paroxysmal atrial fibrillation (CMS/HCC); Primary hypertension (CMS/HCC); Tobacco user; COVID Start: 05-28-2024 End: 05-28-2025 Creatinine [Mass/volume] in Serum or Plasma Creatinine Lab Routine 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 (CMS/HCC) Expected: 05/28/2024 (Approximate), Expires: 05/28/2025 [facility] Comment on above: Expected: 05/28/2024 (Approximate), Expi res: 05/28/2025 Start: 05-28-2024 End: 05-28-2025 CT Abdomen and Pelvis W contrast IV CT abdomen pelvis w IV contrast Imaging Routine 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 (CMS/HCC) Expected: 05/28/2024 (Approximate), Expires: 05/28/2025 [facility] Work Phone: Comment on above: Expected: 05/28/2024 (Approximate), Expi res: 05/28/2025 Start: 05-19-2024 End: 05-19-2024 Patient encounter procedure [facility] Comment on above: Obesity (BMI 30-39.9) (Primary Dx); COPD mixed type (CMS/HCC) Start: 05-18-2024 End: 05-18-2025 Creatinine [Mass/volume] in Serum or Plasma Creatinine Lab Routine Lung nodule, multiple Expected: 05/18/2024 (Approximate), Expires: 05/18/2025 [facility] [employer] Work Phone: Comment on above: Expected: 05/18/2024 (Approximate), Expi res: 05/18/2025 Start: 05-06-2024 End: 05-06-2024 Patient encounter procedure 05/06/2024 1:20 PM EST Office Visit [facility] [address] [place] [phone] Maira Rush NP [address] [place] [phone] SANTO (obstructive sleep apnea) (Primary Dx); Lung nodule, multiple; COPD mixed type (CMS/HCC); Community acquired pneumonia, unspecified laterality; Primary hypertension (CMS/HCC); Atrial fibrillation, unspecified type (CMS/HCC); Type 2 diabetes mellitus without complication, with long-term current use of insulin (CMS/HCC); Tobacco user [facility] Comment on above: SANTO (obstructive sleep apnea) [...] Lymphadenopathy, generalized Expected: 04/22/2024 (Approximate), Expires: 04/22/2025 [facility] Work Phone: Comment on above: Expected: 04/22/2024 (Approximate), Expi res: 04/22/2025 Start: 04-22-2024 End: 04-22-2024 Patient encounter procedure 04/22/2024 9:20 AM EST Office Visit [facility] [address] [place] [address] Maira Rush NP [address] [place] [address] [facility] Start: 04-21-2024 End: 04-21-2024 Patient encounter procedure 04/21/2024 2:40 PM EST Office Visit [facility] [address] [place] [phone] Felton Allison MD [address] [place] [address] [facility] Start: 04-21-2024 End: 04-21-2025 25-hydroxyvitamin D3 [Mass/volume] in Serum or Plasma Vitamin D 25 hydroxy Total Lab Routine Type 2 diabetes mellitus with hyperglycemia, with long-term current use of insulin ([facility]) Expected: 04/21/2024 (Approximate), Expires: 04/21/2025 [facility] Comment on above: Expected: 04/21/2024 (Approximate), Expi res: 04/21/2025 Start: 04-21-2024 End: 04-21-2025 C-peptide C-peptide Lab Routine Type 2 diabetes mellitus with hyperglycemia, with long-term current use of insulin ([facility]) Expected: 04/21/2024 (Approximate), Expires: 04/21/2025 [facility] Work Phone: Comment on above: Expected: 04/21/2024 (Approximate), Expi res: 04/21/2025 Start: 04-21-2024 End: 04-21-2024 Chart abstracting 04/21/2024 Abstract [facility] [address] [place] [address] Felton Allison MD [address] [place] [address] [facility] Start: 04-21-2024 End: 04-21-2025 Lipid 1996 panel - Serum or Plasma Lipid panel Lab Routine Type 2 diabetes mellitus with hyperglycemia, with long-term current use of insulin ([facility]) Expected: 04/21/2024 (Approximate), Expires: 04/21/2025 [facility] Comment on above: Expected: 04/21/2024 (Approximate), Expi res: 04/21/2025 Start: 04-21-2024 End: 04-21-2025 Microalbumin/Creatinine panel in random Urine Microalbumin / creatinine urine ratio Lab Routine Type 2 diabetes mellitus with hyperglycemia, with long-term current use of insulin ([facility]) Expected: 04/21/2024 (Approximate), Expires: 04/21/2025 [facility] Comment on above: Expected: 04/21/2024 (Approximate), Expi res: 04/21/2025 Start: 04-21-2024 End: 04-21-2025 Renal function panel Renal function panel Lab Routine Type 2 diabetes mellitus with hyperglycemia, with long-term current use of insulin ([facility]) Expected: 04/21/2024 (Approximate), Expires: 04/21/2025 [facility] Comment on above: Expected: 04/21/2024 (Approximate), Expi res: 04/21/2025 Start: 03-11-2024 End: 03-11-2024 Patient encounter procedure [facility] Comment on above: Arrived Start: 02-25-2024 End: 02-25-2024 Patient encounter procedure 02/25/2024 11:00 AM EDT Office Visit [facility] [address] [place] [address] Maira Rush NP [address] [place] [address] Arrived [facility] Comment on above: Arrived Start: 02-17-2024 End: 02-16-2025 CBC W Auto Differential panel - Blood CBC and differential Lab Routine Dizziness and giddiness Expected: 02/17/2024 (Approximate), Expires: 02/16/2025 [facility] Comment on above: Expected: 02/17/2024 (Approximate), Expi res: 02/16/2025 Start: 02-17-2024 End: 02-16-2025 Comprehensive metabolic 2000 panel - Serum or Plasma Comprehensive metabolic panel Lab Routine Type 2 diabetes mellitus with hyperglycemia ([facility]) Primary hypertension ([facility]) Edema of extremities Type 2 diabetes mellitus without complication, with long-term current use of insulin ([facility]) Vitamin D deficiency Dizziness and giddiness Expected: 02/17/2024 (Approximate), Expires: 02/16/2025 [facility] Comment on above: Expected: 02/17/2024 (Approximate), Expi res: 02/16/2025 Start: 02-17-2024 End: 02-16-2025 Hemoglobin A1c/Hemoglobin.total in Blood Hemoglobin A1c Lab Routine Type 2 diabetes mellitus with hyperglycemia ([facility]/HCC) Expected: 02/17/2024 (Approximate), Expires: 02/16/2025 [facility] Comment on above: Expected: 02/17/2024 (Approximate), Expi res: 02/16/2025 Start: 02-17-2024 End: 02-16-2025 Magnesium [Mass/volume] in Serum or Plasma Magnesium Lab Routine Dizziness and giddiness Expected: 02/17/2024 (Approximate), Expires: 02/16/2025 [facility] Work Phone: Comment on above: Expected: 02/17/2024 (Approximate), Expi res: 02/16/2025 Start: 02-17-2024 End: 02-16-2025 Urinalysis complete panel - Urine Urinalysis with reflex microscopic (clean catch) Lab Routine Type 2 diabetes mellitus with hyperglycemia (CMS/HCC) Primary hypertension (CMS/HCC) Tobacco user Dizziness and giddiness Expected: 02/17/2024 (Approximate), Expires: 02/16/2025 [facility] Comment on above: Expected: 02/17/2024 (Approximate), Expi res: 02/16/2025 Start: 11-05-2023 Hemoglobin A1c measurement Diabetes: Hemoglobin A1C [facility] Start: 10-16-2023 End: 10-16-2023 Patient encounter procedure 10/16/2023 9:20 AM EDT Office Visit [facility] [address] [place] [address] Maira Rush NP [address] [place] [address] [facility] Start: 08-16-2023 End: 09-15-2024 MG Breast - bilateral Screening Bilateral screening mammogram Imaging Routine Encounter for screening mammogram for malignant neoplasm of breast Expected: 08/16/2023 (Approximate), Expires: 09/15/2024 [facility] Comment on above: Expected: 08/16/2023 (Approximate), Expi res: 09/15/2024 Start: 08-10-2023 Urine screening for protein Diabetes: Urine Protein Screening [facility] Start: 07-18-2023 End: 07-18-2023 Patient encounter procedure 07/18/2023 2:20 PM EST Office Visit [facility] [address] [place] [address] Maira Rush NP [address] [place] [address] Type 2 diabetes mellitus with diabetic neuropathy, with long-term current use of insulin (CMS/HCC) (Primary Dx); Primary hypertension (CMS/HCC); Gastroesophageal reflux disease, unspecified whether esophagitis present; Vitamin D deficiency; Type 2 diabetes mellitus with complication, without long-term current use of insulin (CMS/HCC); Mixed hyperlipidemia (CMS/HCC); Encounter for screening mammogram for malignant neoplasm of breast [facility] Comment on above: Type 2 diabetes mellitus [...] System Comment on above: Expected: 07/18/2023 (Approximate), Expi [...] System Comment on above: Expected: 07/18/2023 (Approximate), Expi res: 07/18/2024 Start: 07-18-2023 End: 07-18-2024 Hemoglobin A1c/Hemoglobin.total in Blood Hemoglobin A1c Lab Routine Type 2 diabetes mellitus with complication, without long-term current use of insulin (CMS/HCC) Expected: 07/18/2023 (Approximate), Expires: 07/18/2024 [facility] Comment on above: Expected: 07/18/2023 (Approximate), Expi res: 07/18/2024 Start: 07-18-2023 End: 07-18-2024 Lipid 1996 panel - Serum or Plasma Lipid panel Lab Routine Mixed hyperlipidemia ([facility]/HCC) Expected: 07/18/2023 (Approximate), Expires: 07/18/2024 [facility] Comment on above: Expected: 07/18/2023 (Approximate), Expi res: 07/18/2024 Start: 07-18-2023 End: 07-18-2024 Microalbumin/Creatinine panel in random Urine Microalbumin / creatinine, urine ratio Lab Routine Type 2 diabetes mellitus with complication, without long-term current use of insulin (CMS/HCC) Expected: 07/18/2023 (Approximate), Expires: 07/18/2024 [facility] Comment on above: Expected: 07/18/2023 (Approximate), Expi res: 07/18/2024 Start: 07-18-2023 End: 07-18-2024 Urinalysis complete panel - Urine Urinalysis with reflex microscopic (clean catch) Lab Routine Type 2 diabetes mellitus with complication, without long-term current use of insulin ([facility]/HCC) Expected: 07/18/2023 (Approximate), Expires: 07/18/2024 [facility] Comment on above: Expected: 07/18/2023 (Approximate), Expi res: 07/18/2024 Start: 06-19-2023 Screening for malignant neoplasm of breast Mammogram [facility] Start: 04-05-2023 Pneumococcal Vaccine: 65+ Years (2 of 2 - PCV) Pneumococcal Vaccine: 65+ Years (2 of 2 - PCV) [facility] Start: 02-01-2023 Influenza vaccination Influenza Vaccine (#1) [facility] Start: 01-07-2019 Hemoglobin A1c measurement Diabetes: Hemoglobin A1C [facility] Start: 1989 Screening for malignant neoplasm of cervix [facility] Start: 1980 Screening for malignant neoplasm of cervix Pap Smear [facility] Start: 1969 Glaucoma screening Diabetes: Retinopathy Screening [facility] Start: 1959 Screening for malignant neoplasm of colon [facility] AEROBIC CULTURE AEROBIC CULTURE Lab Routine 10/04/2024 2:22 AM EDT [facility] Immunizations Immunization Date Immunization Notes Care Provider Fa cility 05-06-2024 influenza, high dose seasonal, preservative-free Maira Aichholz [employer] DIRECT[employer] Work Phone: [facility] 06-25-2023 Influenza, injectabl e, Madin Arline Canine Kidney, preservative free, quadrivalent Maira Aichholz [employer] WELL[employer] DIRECTOR Work Phone: [facility] 04-05-2022 influenza, injectabl e, quadrivalent, preservative free Maira Aichholz [employer] AND WELLNESS DIRECTOR Work Phone: [facility] 04-05-2022 pneumococcal polysaccharide vaccine, 23 valent Maira Aichholz [employer] AND WELLNESS DIRECTOR Work Phone: [facility] 04-05-2022 influenza virus vacc ine, unspecified formulation Maira Aichholz [employer] AND WELLNESS DIRECTOR Work Phone: [facility] 11-23-2021 diphtheria, tetanus toxoids and pertussis vaccine Maira Aichholz [employer] AND WELLNESS DIRECTOR Work Phone: [facility] 11-23-2021 tetanus toxoid, redu joaquin diphtheria toxoid, and acellular pertussis vaccine, adsorbed Maira Aichholz [employer] WELL[employer] DIRECTOR Work Phone: [facility] 2021 Influenza, injectabl e, Madin [place] Canine Kidney, preservative free, quadrivalent Maira Aichholz [employer] AND WELLNESS DIRECTOR Work Phone: [facility] 03-24-2020 tetanus toxoid, redu joaquin diphtheria toxoid, and acellular pertussis vaccine, adsorbed Maira Rush [employer] DIRECTOR Work Phone: [facility] 03-25-2017 Influenza, injectabl e, Madin [place] Canine Kidney, preservative free, quadrivalent Maira Rush [employer] AND WELLNESS DIRECTOR Work Phone: [facility] Payers Date Payer Category Payer Medicaid [employer] [place] [employer] [id number] 2017-Present [address] [place] [id number] [id number] 2017 Medicaid (Managed Care) [facility] MEDICAID [id number] 1959 Unknown [id number] 2.0.1.333598.3.579.2. 647 1959 Unknown [id number] 07.19.830.1.320370.3.579.2. 647 1959 Unknown [id number] 2.840.1.639545.3.579.2. 593 1959 Unknown [id number] 2.16840.1.492848.3.579.2. 593 1959 Unknown [id number] 2.16840.1.664101.3.579.2. 593 1959 Unknown [id number] 2.840.1.687376.3.579.2. 593 1959 Unknown [id number] 2.16.840.1.175624.3.579.2. 593 1959 Unknown [id number] 2.16.840.1.173510.3.579.2. 593 1959 Unknown [id number] 2.16.840.1.876103.3.579.2. 593 1959 Unknown [id number] 2.16.840.1.284962.3.579.2. 1286 1959 Unknown [id number] 2.16.840.1.134680.3.579.2. 1286 1959 Unknown [id number] 2.16.840.1.446822.3.579.2. 125 1959 Unknown [id number] 2.16.840.1.207029.3.579.2. 9 1959 Unknown [id number] 2.16.840.1.154461.3.579.2. 125 1959 Unknown [id number] 2.16.840.1.961877.3.579.2. 125 1959 Unknown [id number] 2.16.840.1.319837.3.579.2. 1258 1959 Unknown [id number] 2.16.840.1.091076.3.579.2. 1259 1959 Unknown [id number] 2.16.840.1.525941.3.579.2. 125 1959 Unknown [id number] 2.16.840.1.778204.3.579.2. 1259 1959 Unknown [id number] 2.16.840.1.758713.3.579.2. 1258 1959 Unknown [id number] 2.16.840.1.006111.3.579.2. 1259 1959 Unknown [id number] 2.16.840.1.340125.3.579.2. 1258 1959 Unknown [id number] 2.16.840.1.162157.3.579.2. 1259 1959 Unknown [id number] 2.16.840.1.369759.3.579.2. 1259 1959 Unknown [id number] 2.16.840.1.759985.3.579.2. 1259 1959 Unknown [id number] 2.16.840.1.302655.3.579.2. 1286 1959 Unknown [id number] 2.16.840.1.752752.3.579.2. 1286 1959 Unknown [id number] Unknown Social History Date Type Detail Facility Start: 07-15-2023 Tobacco smoking stat [facility] Ex-smoker [facility] Start: 06-03-1982 End: 04-03-2022 History of tobacco use Current smoker [facility] Start: 06-03-1982 End: 04-03-2022 History of tobacco use Cigarette Smoker [facility] Start: 07-15-2023 End: 12-14-2024 Cigarettes smoked current (pack per day) - Reported 0.5 [facility] Start: 07-18-2023 End: 12-14-2024 Alcohol intake Ex-drinker (finding) [facility] Start: 06-29-2023 End: 12-14-2024 Tobacco use panel [facility] Start: 07-15-2023 Alcohol Comment coffee 1-2 cup s per day [facility] Start: 1960 Sex Assigned At [...] the mortgage or rent on time? Yes [facility] Medical Equipment Procedure Code Equipment Code Equipment Origin al Text Equipment Identifier Dates [id number] Start: 06-24-2023 End: 08-26-2024 USE TO TEST BLOO D SUGAR FOUR TIMES A DAY [id number] Start: 08-26-2024 USE FOUR TIMES A DAY [id number] Star t: 12-17-2024 USE DIRECTED PER PACKAGE INSTRUCTIONS *NEW RX REQUEST* [id number] Start: 12-15-2024 USE FOUR TIMES A DAY *NEW RX REQUEST* [id number] Start: 12-15-2024 Functional Status Date Assessment Result Facility 12-14-2024 Total score [AUDIT-C] 0 12/15/19 25 1:49 PM EDT Chandrika Danielson MA [facility] Clinical Notes 06-07-2022 to 12-14-2024 Maira [...] , stated she loaned her neph[place] in [place] 400.00 over a 3 month period and did not pay her rent. She is not sure where she will be going, has another nephew in [place], would take her but car wont make it down here to get her and her van wont make it up there. Her is in a half-way as well here in [place]. She states she would just come to [...] MCG (2000 UT) tablet Daily Continuous Glucose Offset Second Press Operator (FreeStyle Julisa 2 [place]) device 1 kit, Does not apply, Every 14 days Continuous Glucose Offset Second Press Operator (FreeStyle Julisa 2 [place]) device USE DIRECTED Continuous Glucose Sensor (FreeStyle Julisa 2 Sensor) [facility] USE TO MONITOR BLOOD SUGAR DIRECTED. CHANGE [...] day (morning and mid-day) Sure Comfort [place] 32G X 4 MM misc 1 each, [...] Acute pancreatitis without necrosis or infection, unspecified ([facility]) Anxiety and depression 07/18/2023 Atrial fibrillation (HCC) 07/18/2023 Body mass index (BMI) 40.0-44.9, adult ([facility]) COPD mixed type ([facility]) 05/23/2023 Dietary counseling and surveillance Drug-induced acute pancreatitis ([facility]) 07/18/2023 Edema of extremities 07/18/2023 Essential (primary) hypertension 12/04/2010 GERD (gastroesophageal reflux disease) 07/18/2023 HLD (hyperlipidemia) 07/18/2023 Hx of being hospitalized PNEUMONIA retirement (current) use of insulin ([facility]) Medical non-compliance 07/18/2023 Morbid obesity with body mass index (BMI) of 40.0 to 49.9 ([facility]) 07/18/2023 Neuropathy, diabetic ([facility]) 07/18/2023 SANTO (obstructive sleep apnea) 07/18/2023 Osteoporosis 07/18/2023 Seasonal allergies 07/18/2023 Tobacco user 07/18/2023 Type 2 diabetes mellitus with complication, without long-term current use of insulin ([facility]) 07/18/2023 Urge and stress incontinence 07/18/2023 [...] complication, with long-term current use of insulin ([facility]) - Primary Check blood sugars daily, [...] of the risks of continued smoking: stroke, [place], all forms of cancer, lung disease, and [...] of the risks of continued smoking: stroke, [place], all forms of cancer, lung disease, and [...] going to matter documented in this encounter [facility] 12-14-2024 Instructions Maira Rush NP - 12/14/2024 11:30 AM EDT Chronic care mgmt documented in this encounter [facility] 12-01-2024 History of Presen t illness Narrative [...] MCG (2000 UT) tablet Daily Continuous Glucose Offset Second Press Operator (FreeStyle Julisa 2 [place]sn[place]rock) device 1 kit, Does not apply, Every 14 days Continuous Glucose Offset Second Press Operator (FreeStyle Julisa 2 Osn[place]rock) device USE DIRECTED Continuous Glucose Sensor (FreeStyle [...] day (morning and mid-day) Sure Comfort [place] 32G X 4 MM misc 1 each, [...] Acute pancreatitis without necrosis or infection, unspecified ([facility]) Anxiety and depression 07/18/2023 Atrial fibrillation ([facility]) 07/18/2023 Body mass index (BMI) 40.0-44.9, adult ([facility] [place] [place]) COPD mixed type ([facility]) 05/23/2023 Dietary counseling and surveillance Drug-induced acute pancreatitis ([facility]) 07/18/2023 Edema of extremities 07/18/2023 Essential (primary) hypertension 12/04/2010 GERD (gastroesophageal reflux disease) 07/18/2023 HLD (hyperlipidemia) 07/18/2023 Hx of being hospitalized PNEUMONIA 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 ([facility]) Medical non-compliance 07/18/2023 Morbid obesity with body mass index (BMI) of 40.0 to 49.9 ([facility] [place] [place]) 07/18/2023 Neuropathy, diabetic ([facility]) 07/18/2023 SANTO (obstructive sleep apnea) 07/18/2023 Osteoporosis 07/18/2023 Seasonal allergies 07/18/2023 Tobacco user 07/18/2023 Type 2 diabetes mellitus with complication, without long-term current use of insulin ([facility]) 07/18/2023 Urge and stress incontinence 07/18/2023 [...] 150 MG tablet documented in this encounter [facility] 12-01-2024 Instructions Maira Rush NP - 12/01/2024 1:40 PM EDT Nystatin ointment twice a day to affected area documented in this encounter [facility] 10-14-2024 History of Presen t illness Narrative Associated Problem(s): Mild episode of recurrent major depressive disorder (HCC) (CMS/HCC) Stressors: spouse in half-way , also not a strong support system Current med: paxil Will add medication: will trail wellbutrin Associated Problem(s): Abscess of left groin Finish atb According to [facility] discharge notes, she was to have HH [...] one helping with wound care-packing She thought [id number] was suppose to but she had called [...] admit to depression secondary to her in half-way with declining health. We have adjusted her [...] mg, Oral, 4 times daily Continuous Glucose Offset Second Press Operator (FreeStyle Julisa 2 Osnabrock) device 1 kit, Does not apply, Every 14 days Continuous Glucose Offset Second Press Operator (FreeStyle Julisa 2 Osnabrock) device USE DIRECTED Continuous Glucose Sensor (FreeStyle [...] day (morning and mid-day) Sure Comfort [place] 32G X 4 MM misc 1 each, [...] necrosis or infection, unspecified Anxiety and depression ([facility]) 07/18/2023 Atrial fibrillation ([facility]) 07/18/2023 Body mass index (BMI) 40.0-44.9, adult ([facility]) COPD mixed type ([facility]) 05/23/2023 Dietary counseling and surveillance Drug-induced acute pancreatitis 07/18/2023 Edema of extremities 07/18/2023 Essential (primary) hypertension ([facility]) 12/04/2010 GERD (gastroesophageal reflux disease) 07/18/2023 HLD (hyperlipidemia) ([facility]) 07/18/2023 Hx of being hospitalized PNEUMONIA 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 ([facility]) Medical non-compliance 07/18/2023 Morbid obesity with body mass index (BMI) of 40.0 to 49.9 ([facility]) 07/18/2023 Neuropathy, diabetic ([facility]) 07/18/2023 SANTO (obstructive sleep apnea) 07/18/2023 Osteoporosis ([facility]) 07/18/2023 Seasonal allergies 07/18/2023 Tobacco user 07/18/2023 Type 2 diabetes mellitus with complication, without long-term current use of insulin ([facility]) 07/18/2023 Urge and stress incontinence 07/18/2023 Vitamin [...] of the risks of continued smoking: stroke, DE, all forms of cancer, lung disease, and . Options for quitting smoking include: cold turkey, hypnosis, acupuncture, nicotine replacement meds (gum, lozenges, and patches), Buproprion, and Varenicline. 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 Images from the original note were not [...] MCG (2000 UT) tablet Daily Continuous Glucose Offset Second Press Operator (FreeStyle Julisa 2 [place]rock) device 1 kit, Does not apply, Every 14 days Continuous Glucose Offset Second Press Operator (FreeStyle Julisa 2 Osn[place]rock) device USE DIRECTED Continuous Glucose Sensor (FreeStyle [...] day (morning and mid-day) Sure Comfort [place] 32G X 4 MM misc 1 each, [...] necrosis or infection, unspecified Anxiety and depression ([facility]) 07/18/2023 Atrial fibrillation ([facility]) 07/18/2023 Body mass index (BMI) 40.0-44.9, adult ([facility]) COPD mixed type ([facility]) 05/23/2023 Dietary counseling and surveillance Drug-induced acute pancreatitis 07/18/2023 Edema of extremities 07/18/2023 Essential (primary) hypertension ([facility]) 12/04/2010 GERD (gastroesophageal reflux disease) 07/18/2023 HLD (hyperlipidemia) ([facility]) 07/18/2023 Hx of being hospitalized PNEUMONIA retirement (current) use of insulin ([facility] [place]) Medical non-compliance 07/18/2023 Morbid obesity with body mass index (BMI) of 40.0 to 49.9 ([facility] [place]) 07/18/2023 Neuropathy, diabetic ([facility]) 07/18/2023 SANTO (obstructive sleep apnea) 07/18/2023 Osteoporosis ([facility]) 07/18/2023 Seasonal allergies 07/18/2023 Tobacco user 07/18/2023 Type 2 diabetes mellitus with complication, without long-term current use of insulin ([facility]) 07/18/2023 Urge and stress incontinence 07/18/2023 Vitamin [...] Items Addressed This Visit COPD mixed type ([facility]) Recommend quitting smoking Continue inhalers Fu with reservations and ticketing agent: has a walk test coming up Recommend follow up Primary hypertension ([facility]) Please check blood pressure daily and record DASH diet Limit caffeine Take medication as directed Contact office if chest pain, pressure, dizziness, shortness of breath, swelling legs Recommend slow position changes Current meds: b dania and arb Relevant Medications losartan (Cozaar) 100 MG tablet spironolactone (Aldactone) 25 MG tablet JORDAN (generalized anxiety disorder) ([facility]) - Primary Current med: paxil Stressors: spouse in half-way, pt does not have a large support [...] that it is the responsibility of the [employer] [facility] [employer] [place], no this healthcare provider. The patient verbalizes understanding of this . Has a cat Relevant Medications PARoxetine (Paxil) 30 MG tablet SANTO (obstructive sleep apnea) Non compliance , has been instructed in the past on importance of need to wear PAP Not wearing risk stroke, DE, Atrial fibrillation ([facility]) No current afib Current meds: xarelto, [...] not wear PAP as directed HLD (hyperlipidemia) ([facility]) Relevant Medications rosuvastatin (Crestor) 5 MG tablet RESOLVED: Anxiety and depression ([facility]) Encounter for screening mammogram for malignant [...] complication, with long-term current use of insulin ([facility]) Check blood sugars daily, notify if [...] Type 2 diabetes mellitus with diabetic polyneuropathy ([facility]) Takes gabapentin OARRS reviewed Recommend freq foot checks for wounds, recommend proper fitting footwear as well as adequate diabetic control 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 ([facility]) Mild episode of recurrent major depressive disorder (HCC) ([facility]) Stressors: spouse in half-way , also not a strong support system [...] that it is the responsibility of the [employer] [facility] [place], no this healthcare provider. The patient verbalizes understanding of this . Has a cat Relevant Medications PARoxetine (Paxil) 30 MG tablet Cigarette nicotine dependence without complication The patient has been advised of the risks of continued smoking: stroke, DE, all forms of cancer, lung disease, and [...] polyneuropathy associated with type 2 diabetes mellitus ([facility]) Relevant Medications gabapentin (Neurontin) 600 MG tablet Associated Problem(s): Cigarette nicotine dependence without complication The patient has been advised of the risks of continued smoking: stroke, DE, all forms of cancer, lung disease, and . Options for quitting smoking include: cold turkey, hypnosis, acupuncture, nicotine replacement meds (gum, lozenges, and patches), Buproprion, and Varenicline. At this time pt is encouraged to evaluate their goals for wanting to quit smoking, and reach out to provider when ready to start this process Associated Problem(s): Mild episode of recurrent major depressive disorder (HCC) ([facility]) Stressors: spouse in half-way , also not a strong support system [...] that it is the responsibility of the [employer] [place], no this healthcare provider. The patient verbalizes understanding of this . Has a cat Associated Problem(s): JORDAN (generalized anxiety disorder) ([facility]) Current med: paxil Stressors: spouse in half-way, pt does not have a large support [...] that it is the responsibility of the [employer] [place], no this healthcare provider. The patient verbalizes understanding of this . Has a cat Associated Problem(s): Medical non-compliance Has not had fu with pulmonology Does not wear PAP as directed Associated Problem(s): Type 2 diabetes mellitus without complication, with long-term current use of insulin ([facility]) Check blood sugars daily, notify if [...] Recommend quitting smoking Continue inhalers Fu with reservations and ticketing agent: has a walk test coming up Recommend follow up Associated Problem(s): Type 2 diabetes mellitus with diabetic polyneuropathy ([facility]/HCC) Takes gabapentin OARRS reviewed Recommend freq foot checks for wounds, recommend proper fitting footwear as well as adequate diabetic control Associated Problem(s): SANTO (obstructive sleep apnea) Non compliance , has been instructed in the past on importance of need to wear PAP Not wearing risk stroke, DE, documented in this encounter [facility] 08-06-2024 History of Presen t illness Narrative September- dr kalina Bender-pulmonology (walk test) 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 Images from the original note were not [...] 50 MCG (1999) tablet Daily Continuous Glucose Offset Second Press Operator (FreeStyle Julisa 2 [place]) device 1 kit, Does not apply, Every 14 days Continuous Glucose Offset Second Press Operator (FreeStyle Julisa 2 [place]sn[place]rock) device USE DIRECTED Continuous Glucose Sensor (FreeStyle [...] day (morning and mid-day) Sure Comfort [place] 32G X 4 MM misc 1 each, [...] necrosis or infection, unspecified Anxiety and depression ([facility]) 07/18/2023 Atrial fibrillation ([facility]) 07/18/2023 Body mass index (BMI) 40.0-44.9, adult ([facility]) COPD mixed type ([facility]) 05/23/2023 Dietary counseling and surveillance Drug-induced acute pancreatitis 07/18/2023 Edema of extremities 07/18/2023 Essential (primary) hypertension ([facility]) 12/04/2010 GERD (gastroesophageal reflux disease) 07/18/2023 HLD (hyperlipidemia) ([facility]) 07/18/2023 Hx of being hospitalized PNEUMONIA 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 ([facility]) Medical non-compliance 07/18/2023 Morbid obesity with body mass index (BMI) of 40.0 to 49.9 ([facility]) 07/18/2023 Neuropathy, diabetic ([facility]) 07/18/2023 SANTO (obstructive sleep apnea) 07/18/2023 Osteoporosis ([facility]) 07/18/2023 Seasonal allergies 07/18/2023 Tobacco user 07/18/2023 Type 2 diabetes mellitus with complication, without long-term current use of insulin ([facility]) 07/18/2023 Urge and stress incontinence 07/18/2023 Vitamin [...] Items Addressed This Visit COPD mixed type ([facility]) Recommend quitting smoking Continue inhalers Fu with reservations and ticketing agent: has a walk test coming up Recommend follow up Primary hypertension ([facility]) Please check blood pressure daily and record DASH diet Limit caffeine Take medication as directed Contact office if chest pain, pressure, dizziness, shortness of breath, swelling legs Recommend slow position changes Current meds: b dania and arb Relevant Medications losartan (Cozaar) 100 MG tablet spironolactone (Aldactone) 25 MG tablet JORDAN (generalized anxiety disorder) ([facility]) - Primary Current med: paxil Stressors: spouse in half-way, pt does not have a large support [...] that it is the responsibility of the [employer] [place], no this healthcare provider. The patient verbalizes understanding of this . Has a cat Relevant Medications PARoxetine (Paxil) 30 MG tablet SANTO (obstructive sleep apnea) Non compliance , has been instructed in the past on importance of need to wear PAP Not wearing risk stroke, DE, Atrial fibrillation ([facility]) No current afib Current meds: xarelto, [...] not wear PAP as directed HLD (hyperlipidemia) ([facility]) Relevant Medications rosuvastatin (Crestor) 5 MG tablet RESOLVED: Anxiety and depression ([facility]) Encounter for screening mammogram for malignant [...] complication, with long-term current use of insulin ([facility]) Check blood sugars daily, notify if [...] Type 2 diabetes mellitus with diabetic polyneuropathy ([facility]) Takes gabapentin OARRS reviewed Recommend freq foot checks for wounds, recommend proper fitting footwear as well as adequate diabetic control 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 ([facility]) Mild episode of recurrent major depressive disorder (HCC) ([facility]) Stressors: spouse in half-way , also not a strong support system [...] that it is the responsibility of the [employer] [place], no this healthcare provider. The patient verbalizes understanding of this . Has a cat Relevant Medications PARoxetine (Paxil) 30 MG tablet Cigarette nicotine dependence without complication The patient has been advised of the risks of continued smoking: stroke, DE, all forms of cancer, lung disease, and [...] polyneuropathy associated with type 2 diabetes mellitus ([facility]) Relevant Medications gabapentin (Neurontin) 600 MG tablet Associated Problem(s): Cigarette nicotine dependence without complication The patient has been advised of the risks of continued smoking: stroke, DE, all forms of cancer, lung disease, and . Options for quitting smoking include: cold turkey, hypnosis, acupuncture, nicotine replacement meds (gum, lozenges, and patches), Buproprion, and Varenicline. At this time pt is encouraged to evaluate their goals for wanting to quit smoking, and reach out to provider when ready to start this process Associated Problem(s): Mild episode of recurrent major depressive disorder (HCC) ([facility]) Stressors: spouse in half-way , also not a strong support system [...] that it is the responsibility of the [employer] [place], no this healthcare provider. The patient verbalizes understanding of this . Has a cat Associated Problem(s): JORDAN (generalized anxiety disorder) ([facility]) Current med: paxil Stressors: spouse in half-way, pt does not have a large support [...] that it is the responsibility of the [employer] [place], no this healthcare provider. The patient verbalizes understanding of this . Has a cat Associated Problem(s): Medical non-compliance Has not had fu with pulmonology Does not wear PAP as directed Associated Problem(s): Type 2 diabetes mellitus without complication, with long-term current use of insulin ([facility]) Check blood sugars daily, notify if [...] Recommend quitting smoking Continue inhalers Fu with reservations and ticketing agent: has a walk test coming up Recommend [...] to wear PAP Not wearing risk stroke, DE, documented in this encounter [facility] 08-06-2024 Instructions Maira Rush NP - 08/06/2024 9:20 AM EST Increase the paroxetine to 30mg daily, If worsening in depression or anxiety with the medication adjustment call the office Also will send order to [facility] for mammogram I will check w cardiology about aspirin documented in this encounter [facility] 07-06-2024 Note Cardiology Clinic No te Subjective [...] mass index (BMI) of 40.0 to 49.9 ([facility]/HCC) Neuropathy, diabetic ([facility]) Open wound Osteoporosis Seasonal allergies Tobacco user Urge and stress incontinence Vitamin D deficiency 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 CAP (community acquired pneumonia) COVID Dizziness and giddiness Hyperglycemia 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 classified elsewhere Injury of back of head 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 ([facility]/HCC) Lung nodule, multiple Lymphadenopathy, generalized Muscle weakness (generalized) Other abnormalities of gait and mobility Other thrombophilia Oxygen dependent Right wrist pain Stage III pressure ulcer of sacral region ([facility]/HCC) Type 2 diabetes mellitus with diabetic polyneuropathy ([facility]/HCC) Type 2 diabetes mellitus with hyperglycemia ([facility]) Weakness Family History Problem Relation Name [...] Rfl: rivaroxaban ( (more content not included)... [facility] 06-09-2024 History of Presen t illness Narrative Denae Dior is a 63 y.o. female presents with chief complaint of COPD HPI: Here for an ER fu. Was last seen in office on 05/28/24 with URI symptoms, d/t assessment and chronic conditions she was sent to [facility] ER, she was ultimately dx with COVID, as well as sent home on steroids (40mg daily for 5 days) and doxycycline for COPD exacerbation. She returned to the [facility] ER on 06/01/24 with complaints of blood [...] MCG (1999 UT) tablet Daily Continuous Glucose Offset Second Press Operator (FreeStyle Julisa 2 [place]snabrock) device 1 kit, Does not apply, Every 14 days Continuous Glucose Offset Second Press Operator (FreeStyle Julisa 2 [place]sn[place]rock) device USE DIRECTED Continuous Glucose Sensor (FreeStyle [...] day (morning and mid-day) Sure Comfort [place] 32G X 4 MM misc 1 each, [...] necrosis or infection, unspecified Anxiety and depression ([facility]) 07/18/2023 Atrial fibrillation ([facility]) 07/18/2023 Body mass index (BMI) 40.0-44.9, adult ([facility]) COPD mixed type ([facility]) 05/23/2023 Dietary counseling and surveillance Drug-induced acute pancreatitis 07/18/2023 Edema of extremities 07/18/2023 Essential (primary) hypertension ([facility]) 12/04/2010 GERD (gastroesophageal reflux disease) 07/18/2023 HLD (hyperlipidemia) ([facility]) 07/18/2023 Hx of being hospitalized PNEUMONIA 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 ([facility]) Medical non-compliance 07/18/2023 Morbid obesity with body mass index (BMI) of 40.0 to 49.9 ([facility]) 07/18/2023 Neuropathy, diabetic ([facility]) 07/18/2023 SANTO (obstructive sleep apnea) 07/18/2023 Osteoporosis ([facility]) 07/18/2023 Seasonal allergies 07/18/2023 Tobacco user 07/18/2023 Type 2 diabetes mellitus with complication, without long-term current use of insulin ([facility]) 07/18/2023 Urge and stress incontinence 07/18/2023 Vitamin [...] Items Addressed This Visit COPD mixed type ([facility]) Quit smoking Continue inhalers Fu with pulmonologoist Recent covid dx Primary hypertension [facility] [facility]) Please check blood pressure daily and record DASH diet Limit caffeine Take medication as directed Contact office if chest pain, pressure, dizziness, shortness of breath, swelling legs Recommend slow position changes Current meds: b dania and arb Atrial fibrillation ([facility]/HCC) No current afib Current meds: asa, xarelto, b dania Tobacco user The patient has been advised of the risks of continued smoking: stroke, DE, all forms of cancer, lung disease, and [...] facility 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 classified elsewhere ([facility]) Type 2 diabetes mellitus with hyperglycemia ([facility]) Check blood sugars daily, notify if [...] Type 2 diabetes mellitus with diabetic polyneuropathy ([facility]) Long standing DM, recommend freq foot checks for open wounds Good fitting shoes Diabetes control 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 ([facility]) Associated Problem(s): COVID Was dx 05/28/24 w COVID, sent home on doxy, steroids for COPD exac Returned to Er on 06/01/24 d/t elevated glucose Recommend good hand washing ted when visiting in nursing facility Associated Problem(s): Tobacco user The patient has been advised of the risks of continued smoking: stroke, DE, all forms of cancer, lung disease, and [...] Problem(s): Type 2 diabetes mellitus with hyperglycemia ([facility]) Check blood sugars daily, notify if [...] shoes Diabetes control documented in this encounter [facility] 06-09-2024 Instructions Maira Rush NP - 06/09/2024 11:00 AM EST Diabetes: please call and schedule a diabetic eye exam Smokin cigs daily for this week, then next week 2 cigs daily, then week #3: 1 cig daily, then week #4: stop: You can do this, do it for your overall health and health of your lungs documented in this encounter [facility] 05-28-2024 History of Presen t illness Narrative Associated Problem(s): COPD with acute exacerbation ([facility]) Recent hospitalization with pneumonia in the last few months Is on home O2, also with nebs at home, states no difference in her wheezing with or without the neb UTD on flu shot, not on COVID Had CT chest on 05/25/24 but did not have sxs at that time Her is in a half-way, possible exposure to something there Differentials: atypical [...] 2 times daily with meals Continuous Glucose Offset Second Press Operator (FreeStyle Julisa 2 [place]sn[place]rock) device 1 kit, Does not apply, Every 14 days Continuous Glucose Offset Second Press Operator (FreeStyle Julisa 2 [place]) device USE DIRECTED Continuous Glucose Sensor (FreeStyle [...] day (morning and mid-day) Sure Comfort [place] 32G X 4 MM misc 1 each, [...] necrosis or infection, unspecified Anxiety and depression ([facility]) 07/18/2023 Atrial fibrillation ([facility]) 07/18/2023 Body mass index (BMI) 40.0-44.9, adult ([facility]) COPD mixed type ([facility]) 05/23/2023 Dietary counseling and surveillance Drug-induced acute pancreatitis 07/18/2023 Edema of extremities 07/18/2023 Essential (primary) hypertension ([facility]) 12/04/2010 GERD (gastroesophageal reflux disease) 07/18/2023 HLD (hyperlipidemia) ([facility]) 07/18/2023 Hx of being hospitalized PNEUMONIA 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 ([facility]) Medical non-compliance 07/18/2023 Morbid obesity with body mass index (BMI) of 40.0 to 49.9 ([facility]) 07/18/2023 Neuropathy, diabetic ([facility]) 07/18/2023 SANTO (obstructive sleep apnea) 07/18/2023 Osteoporosis ([facility]) 07/18/2023 Seasonal allergies 07/18/2023 Tobacco user 07/18/2023 Type 2 diabetes mellitus with complication, without long-term current use of insulin ([facility]) 07/18/2023 Urge and stress incontinence 07/18/2023 Vitamin [...] ASSESSMENT AND PLAN: documented in this encounter [facility] 05-28-2024 History of Presen t illness Narrative Associated Problem(s): 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 (CMS/HCC) Noted on past CT scans, felt to be adenoma, however is getting larger in size Will order CT scan adrenal gland protocol documented in this encounter [facility] 05-19-2024 History of Presen t illness Narrative [...] D-3) 50 mcg, Oral, Daily Continuous Glucose Offset Second Press Operator (FreeStyle Julisa 2 [place]rock) device 1 kit, Does not apply, Every 14 days Continuous Glucose Offset Second Press Operator (FreeStyle Julisa 2 [place]rock) device USE DIRECTED Continuous Glucose Sensor (FreeStyle [...] day (morning and mid-day) Sure Comfort [place] 32G X 4 MM misc 1 each, [...] necrosis or infection, unspecified Anxiety and depression ([facility]) 07/18/2023 Atrial fibrillation ([facility]) 07/18/2023 Body mass index (BMI) 40.0-44.9, adult ([facility]) COPD mixed type ([facility]) 05/23/2023 Dietary counseling and surveillance Drug-induced acute pancreatitis 07/18/2023 Edema of extremities 07/18/2023 Essential (primary) hypertension ([facility]) 12/04/2010 GERD (gastroesophageal reflux disease) 07/18/2023 HLD (hyperlipidemia) ([facility]) 07/18/2023 Hx of being hospitalized PNEUMONIA retirement (current) use of insulin ([facility]) Medical non-compliance 07/18/2023 Morbid obesity with body mass index (BMI) of 40.0 to 49.9 ([facility]) 07/18/2023 Neuropathy, diabetic ([facility]) 07/18/2023 SANTO (obstructive sleep apnea) 07/18/2023 Osteoporosis ([facility]) 07/18/2023 Seasonal allergies 07/18/2023 Tobacco user 07/18/2023 Type 2 diabetes mellitus with complication, without long-term current use of insulin ([facility]) 07/18/2023 Urge and stress incontinence 07/18/2023 Vitamin [...] as well as stress from S.O. in half-way Right wrist pain - Primary No hx [...] as well as stress from S.O. in half-way documented in this encounter [facility] 05-19-2024 Instructions Maira Rush NP - 05/19/2024 2:00 PM EST Cosmo wrap to right wrist for [address] ice to affected area 3-4 times daily for 20 minutes each Follow up if not better documented in this encounter [facility] 05-06-2024 History of Presen t illness Narrative [...] D-3) 50 mcg, Oral, Daily Continuous Glucose Offset Second Press Operator (FreeStyle Julisa 2 [place]) device 1 kit, Does not apply, Every 14 days Continuous Glucose Offset Second Press Operator (FreeStyle Julisa 2 [place]) device USE DIRECTED Continuous Glucose Sensor (FreeStyle [...] day (morning and mid-day) Sure Comfort [place] 32G X 4 MM misc 1 each, [...] necrosis or infection, unspecified Anxiety and depression ([facility]) 07/18/2023 Atrial fibrillation ([facility]) 07/18/2023 Body mass index (BMI) 40.0-44.9, adult ([facility]) COPD mixed type ([facility]) 05/23/2023 Dietary counseling and surveillance Drug-induced acute pancreatitis 07/18/2023 Edema of extremities 07/18/2023 Essential (primary) hypertension ([facility]) 12/04/2010 GERD (gastroesophageal reflux disease) 07/18/2023 HLD (hyperlipidemia) ([facility]) 07/18/2023 Hx of being hospitalized PNEUMONIA retirement (current) use of insulin ([facility]) Medical non-compliance 07/18/2023 Morbid obesity with body mass index (BMI) of 40.0 to 49.9 ([facility]) 07/18/2023 Neuropathy, diabetic ([facility]) 07/18/2023 SANTO (obstructive sleep apnea) 07/18/2023 Osteoporosis ([facility]) 07/18/2023 Seasonal allergies 07/18/2023 Tobacco user 07/18/2023 Type 2 diabetes mellitus with complication, without long-term current use of insulin ([facility]) 07/18/2023 Urge and stress incontinence 07/18/2023 [...] Items Addressed This Visit COPD mixed type ([facility]) - Primary Quit smoking Continue inhalers Fu with pulmonologoist Primary hypertension ([facility]) Please check blood pressure daily and record DASH diet Limit caffeine Take medication as directed Contact office if chest pain, pressure, dizziness, shortness of breath, swelling legs Recommend slow position changes Current meds: b dania and arb SANTO (obstructive sleep apnea) Non compliance , has been instructed in the past on importance of need to wear PAP Not wearing risk stroke, DE, Atrial fibrillation ([facility]) Cont current meds and anticoagulation Tobacco user The patient has been advised of the risks of continued smoking: stroke, DE, all forms of cancer, lung disease, and [...] complication, with long-term current use of insulin ([facility]) Check blood sugars daily, notify if [...] Needs fu CT due now, order to [facility] CAP (community acquired pneumonia) Finished atb Breathing: improved Fever:none No productive cough Other Visit Diagnoses Needs flu shot Relevant Orders Flu vaccine, high dose seasonal, PF ([id number]) (Fluzone High Dose) (Completed) Associated Problem(s): Tobacco user The patient has been advised of the risks of continued smoking: stroke, DE, all forms of cancer, lung disease, and [...] complication, with long-term current use of insulin ([facility]) Check blood sugars daily, notify if [...] arb and asa Associated Problem(s): Atrial fibrillation ([facility]) Cont current meds and anticoagulation Associated Problem(s): Primary hypertension ([facility]) Please check blood pressure daily and [...] Needs fu CT due now, order to [facility] Associated Problem(s): SANTO (obstructive sleep apnea) Non compliance , has been instructed in the past on importance of need to wear PAP Not wearing risk stroke, DE, documented in this encounter [facility] 05-06-2024 Instructions Maira Rush NP - 05/06/2024 1:20 PM EST Diabetes: continue with dr allison, please call and schedule a diabetic eye exam Legislative Assistant: please call to schedule an appointment Mammogram: I will fax order to [facility] documented in this encounter [facility] 04-22-2024 History of Presen t illness Narrative [...] Hospitalizations in the last year: yes Specialist: Professor Of Biochemistry [facility] Kalina Torres for Endo/DM, Legislative Assistant: Janet-has not seen in a while Recent [...] being taken. She does not see a deer farmer.Eye exam is not current. SUBJECTIVE: MEDICATIONS: Current [...] D-3) 50 mcg, Oral, Daily Continuous Glucose Offset Second Press Operator (FreeStyle Julisa 2 [place]) device Continuous Glucose Offset Second Press Operator (FreeStyle Julisa 2 [place]rock) device 1 kit, Does not apply, Every [...] day (morning and mid-day) Sure Comfort [place] 32G X 4 MM misc 1 each, [...] necrosis or infection, unspecified Anxiety and depression ([facility]) 07/18/2023 Atrial fibrillation ([facility]) 07/18/2023 Body mass index (BMI) 40.0-44.9, adult ([facility]) COPD mixed type ([facility]) 05/23/2023 Dietary counseling and surveillance Drug-induced acute pancreatitis 07/18/2023 Edema of extremities 07/18/2023 Essential (primary) hypertension ([facility]) 12/04/2010 GERD (gastroesophageal reflux disease) 07/18/2023 HLD (hyperlipidemia) ([facility]) 07/18/2023 Hx of being hospitalized PNEUMONIA retirement (current) use of insulin ([facility]) Medical non-compliance 07/18/2023 Morbid obesity with body mass index (BMI) of 40.0 to 49.9 ([facility]) 07/18/2023 Neuropathy, diabetic ([facility]) 07/18/2023 SANTO (obstructive sleep apnea) 07/18/2023 Osteoporosis ([facility]) 07/18/2023 Seasonal allergies 07/18/2023 Tobacco user 07/18/2023 Type 2 diabetes mellitus with complication, without long-term current use of insulin ([facility]) 07/18/2023 Urge and stress incontinence 07/18/2023 Vitamin [...] CT chest w IV contrast Primary hypertension ([facility]/HCC) Please check blood pressure daily and record DASH diet Limit caffeine Take medication as directed Contact office if chest pain, pressure, dizziness, shortness of breath, swelling legs Recommend slow position changes Relevant Medications spironolactone (Aldactone) 25 MG tablet losartan (Cozaar) 100 MG tablet Type 2 diabetes mellitus with diabetic neuropathy, with long-term current use of insulin ([facility]) Recommend tight blood sugar control Relevant [...] of the risks of continued smoking: stroke, DE, all forms of cancer, lung disease, and [...] (Crestor) 5 MG tablet Anxiety and depression ([facility]) At last appt we increased dose of paxil: Relevant Medications PARoxetine (Paxil) 20 MG tablet Obesity (BMI 30-39.9) Type 2 diabetes mellitus without complication, with long-term current use of insulin ([facility]) Continue with dr allison for management [...] of the risks of continued smoking: stroke, DE, all forms of cancer, lung disease, and [...] yearly and prn documented in this encounter [facility] 04-22-2024 Instructions Maira Rush NP - 04/22/2024 9:20 AM EST New atb for pneumonia Need to schedule with pulmonology and eye doctor Eye doctor is : [phone] [facility] Lung doctor: [place] [phone] documented in this encounter [facility] 04-21-2024 History of Presen t illness Narrative [...] (VITAMIN D-3) 2,000 Units, Daily Continuous Glucose Offset Second Press Operator (FreeStyle Julisa 2 [place]) device Continuous Glucose Sensor (FreeStyle Julisa 2 Sensor) [facility] empagliflozin (JARDIANCE) 25 mg, Oral, Daily empagliflozin [...] day (morning and mid-day) Sure Comfort [place] 32G X 4 MM misc 1 each, [...] necrosis or infection, unspecified Anxiety and depression ([facility]) 07/18/2023 Atrial fibrillation ([facility]) 07/18/2023 Body mass index (BMI) 40.0-44.9, adult ([facility]) COPD mixed type ([facility]) 05/23/2023 Dietary counseling and surveillance Drug-induced acute pancreatitis 07/18/2023 Edema of extremities 07/18/2023 Essential (primary) hypertension ([facility]) 12/04/2010 GERD (gastroesophageal reflux disease) 07/18/2023 HLD (hyperlipidemia) ([facility]) 07/18/2023 Hx of being hospitalized PNEUMONIA retirement (current) use of insulin ([facility]) Medical non-compliance 07/18/2023 Morbid obesity with body mass index (BMI) of 40.0 to 49.9 ([facility]) 07/18/2023 Neuropathy, diabetic ([facility]) 07/18/2023 SANTO (obstructive sleep apnea) 07/18/2023 Osteoporosis ([facility]) 07/18/2023 Seasonal allergies 07/18/2023 Tobacco user 07/18/2023 Type 2 diabetes mellitus with complication, without long-term current use of insulin ([facility]) 07/18/2023 Urge and stress incontinence 07/18/2023 Vitamin [...] hyperglycemia, with long-term current use of insulin ([facility]) - POCT glucose manually resulted - [...] the patient Vitamin D deficiency Primary hypertension ([facility]/HCC) To follow with her PCP Hyperlipemia, mixed (CMS/[facility]) Continue with statin Crestor 5 mg once a day Insulin long-term use ([facility]) Class 1 obesity due to excess calories without serious comorbidity with body mass index (BMI) of 33.0 to 33.9 in adult Follow up in about 3 months (around 07/22/2024). documented in this encounter [facility] 04-09-2024 Telephone encounter Note I would like Denae Dior to be enrolled in [facility] if her insurance allows She is now living on her own, is in the Custodial. She has not been to see Dr Allison for some time, he is the one to manage her DM, recent A1c is 10.4% [place] [facility] 04-09-2024 Miscellaneous Notes I would like Denae Dior to be enrolled in [facility] if her insurance allows She is now living on her own, is in the Custodial. She has not been to see Dr Allison for some time, he is the one to manage her DM, recent A1c is 10.4% [place] documented in this encounter [facility] 03-18-2024 Telephone encounter Note Contact provider this morning, she is now starting to cough up yellow mucus and worsening in symtpoms, no fever, no NVD Will send in atb Also needs humidification for her oxygen She is instructed if atb does not help will need fu apppt [place] [facility] 03-18-2024 Miscellaneous Notes Contact provider this morning, she is now starting to cough up yellow mucus and worsening in symtpoms, no fever, no NVD Will send in atb Also needs humidification for her oxygen She is instructed if atb does not help will need fu apppt [place] documented in this encounter [facility] 03-11-2024 History of Presen t illness Narrative Associated Problem(s): Type 2 diabetes mellitus without complication, with long-term current use of insulin ([facility]) Phone number given for pt to [...] D-3) 2,000 Units, Oral, Daily Continuous Glucose Offset Second Press Operator (FreeStyle Julisa 2 [place]) device Continuous Glucose Sensor (FreeStyle Julisa 2 [...] day (morning and mid-day) Sure Comfort [place] 32G X 4 MM misc 1 each, [...] Medical History: Diagnosis Date Anxiety and depression ([facility]) 07/18/2023 Atrial fibrillation ([facility]) 07/18/2023 COPD mixed type ([facility]) 05/23/2023 Drug-induced acute pancreatitis 07/18/2023 Edema of extremities 07/18/2023 GERD (gastroesophageal reflux disease) 07/18/2023 HLD (hyperlipidemia) ([facility]) 07/18/2023 Medical non-compliance 07/18/2023 Morbid obesity with body mass index (BMI) of 40.0 to 49.9 ([facility]) 07/18/2023 Neuropathy, diabetic ([facility]) 07/18/2023 SANTO (obstructive sleep apnea) 07/18/2023 Osteoporosis ([facility]) 07/18/2023 Seasonal allergies 07/18/2023 Tobacco user 07/18/2023 Type 2 diabetes mellitus with complication, without long-term current use of insulin ([facility]) 07/18/2023 Urge and stress incontinence 07/18/2023 Vitamin [...] complication, with long-term current use of insulin ([facility]) Phone number given for pt to contact Dr Allison office Relevant Orders Ambulatory referral to [facility] Viral upper respiratory tract infection - Primary Do not see any s/s bacterial infection, lungs clear Did in office Flu A/B/Covid: negative Fluids, rest, monitor for s/s worsening if so call office documented in this encounter [facility] 02-25-2024 History of Presen t illness Narrative [...] 25mg BID Her new med supply from [facility] is 25mg BID This may be related to her dizziness Will obtain notes from [facility], I did call medical records and left voice mail to send all ER notes for recent visit Associated Problem(s): Type 2 diabetes mellitus without complication, with long-term current use of insulin ([facility]) Continue current dosing of insulin at [...] fu appt with them Was in the [facility] er yesterday for dizziness: room spinning, no [...] D-3) 2,000 Units, Oral, Daily Continuous Glucose Offset Second Press Operator (FreeStyle Julisa 2 [place]) device Continuous Glucose Sensor (FreeStyle Julisa 2 [...] day (morning and mid-day) Sure Comfort [place] 32G X 4 MM misc 1 each, [...] Medical History: Diagnosis Date Anxiety and depression ([facility]) 07/18/2023 Atrial fibrillation ([facility]) 07/18/2023 COPD mixed type ([facility]) 05/23/2023 Drug-induced acute pancreatitis 07/18/2023 Edema of extremities 07/18/2023 GERD (gastroesophageal reflux disease) 07/18/2023 HLD (hyperlipidemia) ([facility]) 07/18/2023 Medical non-compliance 07/18/2023 Morbid obesity with body mass index (BMI) of 40.0 to 49.9 ([facility]) 07/18/2023 Neuropathy, diabetic ([facility]) 07/18/2023 SANTO (obstructive sleep apnea) 07/18/2023 Osteoporosis ([facility]) 07/18/2023 Seasonal allergies 07/18/2023 Tobacco user 07/18/2023 Type 2 diabetes mellitus with complication, without long-term current use of insulin ([facility]) 07/18/2023 Urge and stress incontinence 07/18/2023 Vitamin [...] complication, with long-term current use of insulin ([facility]) Continue current dosing of insulin at [...] 25mg BID Her new med supply from [facility] is 25mg BID This may be related to her dizziness Will obtain notes from [facility], I did call medical records and left voice mail to send all ER notes for recent visit Open wound of buttock - Primary Recommend cleansing area with soap and water 3-4 times daily and apply zinc oxide cream Increase protein intake Fu in 2 weeks for recheck No atb needed at this time documented in this encounter [facility] 02-17-2024 History of Presen t illness Narrative Associated Problem(s): Dizziness and giddiness Could be still with getting stronger, also will check labs to r/o anemia or elyte abnormals Fu in 3 weeks Continue with home OT/PT Associated Problem(s): Type 2 diabetes mellitus without complication, with long-term current use of insulin ([facility]) Continue current dosing of insulin at BID And sliding scale insulin Associated Problem(s): Edema of extremities Stable at this time Associated Problem(s): Primary hypertension ([facility]/HCC) Stable at this time Associated Problem(s): Atrial fibrillation (CMS/HCC) Cont current meds and anticoagulation BS 200 or less Images from the original note were not included. Denae Dior is a 63 y.o. female presents with chief complaint of No chief complaint on file. HPI: Recent discharge from hospital and half-way for weakness and inability to care for [...] no compliance problems. Hypertensive end-organ damage includes CAD/DE and heart failure. Diabetes She presents for [...] D-3) 2,000 Units, Oral, Daily Continuous Glucose Offset Second Press Operator (FreeStyle Julisa 2 [place]) device Continuous Glucose Sensor (FreeStyle Julisa 2 [...] Oral, 2 times daily Sure Comfort Pen [place] 32G X 4 MM misc 1 each, [...] Medical History: Diagnosis Date Anxiety and depression ([facility] 07/18/2023 Atrial fibrillation ([facility]) 07/18/2023 COPD mixed type ([facility]) 05/23/2023 Drug-induced acute pancreatitis 07/18/2023 Edema of extremities 07/18/2023 GERD (gastroesophageal reflux disease) 07/18/2023 HLD (hyperlipidemia) ([facility] 07/18/2023 Medical non-compliance 07/18/2023 Morbid obesity with body mass index (BMI) of 40.0 to 49.9 ([facility] [place]) 07/18/2023 Neuropathy, diabetic ([facility]) 07/18/2023 SANTO (obstructive sleep apnea) 07/18/2023 Osteoporosis ([facility]) 07/18/2023 Seasonal allergies 07/18/2023 Tobacco user 07/18/2023 Type 2 diabetes mellitus with complication, without long-term current use of insulin ([facility]) 07/18/2023 Urge and stress incontinence 07/18/2023 Vitamin [...] microscopic (clean catch) documented in this encounter [facility] 07-18-2023 History of Presen t illness Narrative [...] to wear PAP Not wearing risk stroke, DE, Associated Problem(s): Type 2 diabetes mellitus with diabetic neuropathy, with long-term current use of insulin ([facility]) Non compliant with follow up with Endo Explained to her her persistent non compliance will lead to increase risk stroke, DE, blindness, amputation, as well as CKD Instructed [...] 2 puffs, Inhalation, Daily Sure Comfort Pen [place] 32G X 4 MM misc 1 each, [...] Medical History: Diagnosis Date Anxiety and depression ([facility] [place]) 07/18/2023 Atrial fibrillation ([facility]) 07/18/2023 COPD mixed type ([facility]) 05/23/2023 Drug-induced acute pancreatitis 07/18/2023 Edema of extremities 07/18/2023 GERD (gastroesophageal reflux disease) 07/18/2023 HLD (hyperlipidemia) ([facility]) 07/18/2023 Medical non-compliance 07/18/2023 Morbid obesity with body mass index (BMI) of 40.0 to 49.9 ([facility] [place] 07/18/2023 Neuropathy, diabetic ([facility]) 07/18/2023 SANTO (obstructive sleep apnea) 07/18/2023 Osteoporosis ([facility]) 07/18/2023 Seasonal allergies 07/18/2023 Tobacco user 07/18/2023 Type 2 diabetes mellitus with complication, without long-term current use of insulin ([facility]) 07/18/2023 Urge and stress incontinence 07/18/2023 Vitamin [...] compliance will lead to increase risk stroke, DE, blindness, amputation, as well as CKD Instructed [...] to wear PAP Not wearing risk stroke, DE, GERD (gastroesophageal reflux disease) Relevant Orders CBC and differential Vitamin D deficiency Relevant Orders Vitamin D 25 hydroxy Type 2 diabetes mellitus with complication, without long-term current use of insulin (CMS/HCC) Relevant Orders Comprehensive metabolic panel Microalbumin / creatinine, urine ratio Urinalysis with reflex microscopic (clean catch) Hemoglobin A1c HLD (hyperlipidemia) (CMS/[facility]) Relevant Orders Lipid panel Comprehensive metabolic panel Anxiety and depression ([facility]) Stable at this time Encounter for screening mammogram for malignant neoplasm of breast Relevant Orders Bilateral screening mammogram COVID Recent hospitalization for this, appears to be doing quite well Open wound No s/s infection, recommend using diaper barrier ointment on this documented in this encounter [facility] 06-07-2022 Note PROCEDURE: XR FOOT L T [...] by: ROBERT HART Date: 2022-06-07 08:43 [facility] Evaluation note Diagnosis Primary hypertension (CMS/HCC)- Primary [...] mass index (BMI) of 40.0 to 49.9 ([facility]) documented in this encounter [facility] HealthcareEvaluation note* Diagnosis Viral upper respiratory tract infection- Primary Acute upper respiratory infections of unspecified site Tobacco user Tobacco use disorder Open wound Open wound(s) (multiple) of unspecified site(s), without mention of complication Obesity (BMI 30-39.9) Type 2 diabetes mellitus without complication, with long-term current use of insulin ([facility]) documented in this encounter [facility] HealthcareEvaluation note* Diagnosis Primary hypertension ([facility])- Primary Unspecified essential hypertension Type 2 diabetes mellitus with diabetic neuropathy, with long-term current use of insulin ([facility]) Gastroesophageal reflux disease, unspecified whether esophagitis present Vitamin D deficiency Type 2 diabetes mellitus with complication, without long-term current use of insulin ([facility]) Mixed hyperlipidemia ([facility]) Mixed hyperlipidemia Encounter for screening mammogram for malignant neoplasm of breast SANTO (obstructive sleep apnea) Obstructive sleep apnea (adult) (pediatric) COPD mixed type ([facility]) Anxiety and depression ([facility]) COVID Open wound Open wound(s) (multiple) of unspecified site(s), without mention of complication Morbid obesity with body mass index (BMI) of 40.0 to 49.9 ([facility]) COPD mixed type ([facility])- Primary Dysuria Atrial fibrillation, unspecified type ([facility]) Gastroesophageal reflux disease, unspecified whether esophagitis present Type 2 diabetes mellitus with complication, without long-term current use of insulin ([facility]) Obesity (BMI 30-39.9) Tobacco user Tobacco use disorder Anxiety and depression ([facility]) Dermatitis Contact dermatitis and other eczema, due to unspecified cause Anxiety and depression ([facility])- Primary Obesity (BMI 30-39.9) Type 2 diabetes mellitus with complication, without long-term current use of insulin ([facility]) Medical non-compliance Tobacco user Tobacco use disorder Type 2 diabetes mellitus with hyperglycemia ([facility])- Primary Primary hypertension ([facility]) Unspecified essential hypertension Edema of extremities Edema Type 2 diabetes mellitus without complication, with long-term current use of insulin ([facility]) Vitamin D deficiency Tobacco user Tobacco use disorder Dizziness and giddiness Atrial fibrillation, unspecified type ([facility]) COPD mixed type ([facility]) Open wound of buttock, unspecified laterality, initial encounter- Primary Type 2 diabetes mellitus without complication, with long-term current use of insulin ([facility]) Obesity (BMI 30-39.9) Dizziness and giddiness Viral upper respiratory tract infection- Primary Acute upper respiratory infections of unspecified site Tobacco user Tobacco use disorder Open wound Open wound(s) (multiple) of unspecified site(s), without mention of complication Obesity (BMI 30-39.9) Type 2 diabetes mellitus without complication, with long-term current use of insulin ([facility]) Primary hypertension ([facility])- Primary Unspecified essential hypertension Edema of extremities Edema documented in this encounter [facility] Healthcare[facility] note* Diagnosis Primary hypertension ([facility])- Primary Unspecified essential hypertension Type 2 diabetes mellitus with diabetic neuropathy, with long-term current use of insulin ([facility]) Gastroesophageal reflux disease, unspecified whether esophagitis present Vitamin D deficiency Type 2 diabetes mellitus with complication, without long-term current use of insulin ([facility]) Mixed hyperlipidemia ([facility]) Mixed hyperlipidemia Encounter for screening mammogram for malignant neoplasm of breast SANTO (obstructive sleep apnea) Obstructive sleep apnea (adult) (pediatric) COPD mixed type ([facility]) Anxiety and depression ([facility]) COVID Open wound Open wound(s) (multiple) of unspecified site(s), without mention of complication Morbid obesity with body mass index (BMI) of 40.0 to 49.9 ([facility]) COPD mixed type ([facility])- Primary Dysuria Atrial fibrillation, unspecified type ([facility]) Gastroesophageal reflux disease, unspecified whether esophagitis present Type 2 diabetes mellitus with complication, without long-term current use of insulin ([facility]) Obesity (BMI 30-39.9) Tobacco user Tobacco use disorder Anxiety and depression ([facility]) Dermatitis Contact dermatitis and other eczema, due to unspecified cause Anxiety and depression ([facility])- Primary Obesity (BMI 30-39.9) Type 2 diabetes mellitus with complication, without long-term current use of insulin ([facility]) Medical non-compliance Tobacco user Tobacco use disorder Type 2 diabetes mellitus with hyperglycemia ([facility])- Primary Primary hypertension ([facility]) Unspecified essential hypertension Edema of extremities Edema Type 2 diabetes mellitus without complication, with long-term current use of insulin ([facility]) Vitamin D deficiency Tobacco user Tobacco use disorder Dizziness and giddiness Atrial fibrillation, unspecified type (CMS/[facility]) COPD mixed type ([facility]) Open wound of buttock, unspecified laterality, initial encounter- Primary Type 2 diabetes mellitus without complication, with long-term current use of insulin ([facility]) Obesity (BMI 30-39.9) Dizziness and giddiness Viral upper respiratory tract infection- Primary Acute upper respiratory infections of unspecified site Tobacco user Tobacco use disorder Open wound Open wound(s) (multiple) of unspecified site(s), without mention of complication Obesity (BMI 30-39.9) Type 2 diabetes mellitus without complication, with long-term current use of insulin ([facility]) COPD mixed type ([facility])- Primary URI, acute Acute upper respiratory infections of unspecified site documented in this encounter [facility] HealthcareEvaluation note* Diagnosis Primary hypertension ([facility])- Primary Unspecified essential hypertension Type 2 diabetes mellitus with diabetic neuropathy, with long-term current use of insulin ([facility]) Gastroesophageal reflux disease, unspecified whether esophagitis present Vitamin D deficiency Type 2 diabetes mellitus with complication, without long-term current use of insulin ([facility]) Mixed hyperlipidemia ([facility]) Mixed hyperlipidemia Encounter for screening mammogram for malignant neoplasm of breast SANTO (obstructive sleep apnea) Obstructive sleep apnea (adult) (pediatric) COPD mixed type ([facility]) Anxiety and depression ([facility]) COVID Open wound Open wound(s) (multiple) of unspecified site(s), without mention of complication Morbid obesity with body mass index (BMI) of 40.0 to 49.9 ([facility]) COPD mixed type (CMS/HCC)- Primary Dysuria Atrial fibrillation, unspecified type ([facility]) Gastroesophageal reflux disease, unspecified whether esophagitis present Type 2 diabetes mellitus with complication, without long-term current use of insulin ([facility]) Obesity (BMI 30-39.9) Tobacco user Tobacco use disorder Anxiety and depression ([facility]) Dermatitis Contact dermatitis and other eczema, due to unspecified cause Anxiety and depression ([facility])- Primary Obesity (BMI 30-39.9) Type 2 diabetes mellitus with complication, without long-term current use of insulin ([facility]) Medical non-compliance Tobacco user Tobacco use disorder Type 2 diabetes mellitus with hyperglycemia ([facility])- Primary Primary hypertension ([facility]) Unspecified essential hypertension Edema of extremities Edema Type 2 diabetes mellitus without complication, with long-term current use of insulin ([facility]) Vitamin D deficiency Tobacco user Tobacco use disorder Dizziness and giddiness Atrial fibrillation, unspecified type (CMS/[facility]) COPD mixed type ([facility]) Open wound of buttock, unspecified laterality, initial encounter- Primary Type 2 diabetes mellitus without complication, with long-term current use of insulin ([facility]) Obesity (BMI 30-39.9) Dizziness and giddiness Viral upper respiratory tract infection- Primary Acute upper respiratory infections of unspecified site Tobacco user Tobacco use disorder Open wound Open wound(s) (multiple) of unspecified site(s), without mention of complication Obesity (BMI 30-39.9) Type 2 diabetes mellitus without complication, with long-term current use of insulin ([facility]) COPD mixed type ([facility]) URI, acute Acute upper respiratory infections of unspecified site documented in this encounter [facility]Evaluation note* Diagnosis Primary hypertension ([facility])- Primary Unspecified essential hypertension Type 2 diabetes mellitus with diabetic neuropathy, with long-term current use of insulin ([facility]) Gastroesophageal reflux disease, unspecified whether esophagitis present Vitamin D deficiency Type 2 diabetes mellitus with complication, without long-term current use of insulin ([facility]) Mixed hyperlipidemia ([facility]) Mixed hyperlipidemia Encounter for screening mammogram for malignant neoplasm of breast SANTO (obstructive sleep apnea) Obstructive sleep apnea (adult) (pediatric) COPD mixed type ([facility]) Anxiety and depression ([facility]) COVID Open wound Open wound(s) (multiple) of unspecified site(s), without mention of complication Morbid obesity with body mass index (BMI) of 40.0 to 49.9 ([facility]) COPD mixed type ([facility]/HCC)- Primary Dysuria Atrial fibrillation, unspecified type ([facility]) Gastroesophageal reflux disease, unspecified whether esophagitis present Type 2 diabetes mellitus with complication, without long-term current use of insulin ([facility]) Obesity (BMI 30-39.9) Tobacco user Tobacco use disorder Anxiety and depression ([facility]) Dermatitis Contact dermatitis and other eczema, due to unspecified cause Anxiety and depression ([facility])- Primary Obesity (BMI 30-39.9) Type 2 diabetes mellitus with complication, without long-term current use of insulin ([facility]) Medical non-compliance Tobacco user Tobacco use disorder Type 2 diabetes mellitus with hyperglycemia ([facility])- Primary Primary hypertension ([facility]) Unspecified essential hypertension Edema of extremities Edema Type 2 diabetes mellitus without complication, with long-term current use of insulin ([facility]) Vitamin D deficiency Tobacco user Tobacco use disorder Dizziness and giddiness Atrial fibrillation, unspecified type ([facility]) COPD mixed type ([facility]) Open wound of buttock, unspecified laterality, initial encounter- Primary Type 2 diabetes mellitus without complication, with long-term current use of insulin ([facility]) Obesity (BMI 30-39.9) Dizziness and giddiness Viral upper respiratory tract infection- Primary Acute upper respiratory infections of unspecified site Tobacco user Tobacco use disorder Open wound Open wound(s) (multiple) of unspecified site(s), without mention of complication Obesity (BMI 30-39.9) Type 2 diabetes mellitus without complication, with long-term current use of insulin ([facility]) Encounter for wellness examination- Primary Osteoporosis, unspecified osteoporosis type, unspecified pathological fracture presence ([facility]) Open wound of buttock, unspecified laterality, initial encounter Type 2 diabetes mellitus without complication, with long-term current use of insulin ([facility]) Obesity (BMI 30-39.9) Tobacco user Tobacco use disorder Anxiety and depression ([facility]) Type 2 diabetes mellitus with diabetic neuropathy, with long-term current use of insulin ([facility]) COPD mixed type ([facility]) Diabetic polyneuropathy associated with type 2 diabetes mellitus ([facility]) Gastroesophageal reflux disease, unspecified whether esophagitis present Mixed hyperlipidemia ([facility]) Mixed hyperlipidemia Primary hypertension ([facility]) Unspecified essential hypertension Edema of extremities Edema Lung nodule, multiple Lymphadenopathy, generalized Vitamin D deficiency Oxygen dependent Dependence on supplemental oxygen Community acquired pneumonia, unspecified laterality documented in this encounter [facility]* Diagnosis Primary hypertension ([facility])- Primary Unspecified essential hypertension Type 2 diabetes mellitus with diabetic neuropathy, with long-term current use of insulin ([facility]) Gastroesophageal reflux disease, unspecified whether esophagitis present Vitamin D deficiency Type 2 diabetes mellitus with complication, without long-term current use of insulin ([facility] [facility]) Mixed hyperlipidemia ([facility]) Mixed hyperlipidemia Encounter for screening mammogram for malignant neoplasm of breast SANTO (obstructive sleep apnea) Obstructive sleep apnea (adult) (pediatric) COPD mixed type ([facility]) Anxiety and depression ([facility] COVID Open wound Open wound(s) (multiple) of unspecified site(s), without mention of complication Morbid obesity with body mass index (BMI) of 40.0 to 49.9 ([facility] COPD mixed type ([facility])- Primary Dysuria Atrial fibrillation, unspecified type ([facility]) Gastroesophageal reflux disease, unspecified whether esophagitis present Type 2 diabetes mellitus with complication, without long-term current use of insulin ([facility]) Obesity (BMI 30-39.9) Tobacco user Tobacco use disorder Anxiety and depression ([facility]) Dermatitis Contact dermatitis and other eczema, due to unspecified cause Anxiety and depression ([facility] Primary Obesity (BMI 30-39.9) Type 2 diabetes mellitus with complication, without long-term current use of insulin ([facility]) Medical non-compliance Tobacco user Tobacco use disorder Type 2 diabetes mellitus with hyperglycemia ([facility])- Primary Primary hypertension ([facility]) Unspecified essential hypertension Edema of extremities Edema Type 2 diabetes mellitus without complication, with long-term current use of insulin ([facility]) Vitamin D deficiency Tobacco user Tobacco use disorder Dizziness and giddiness Atrial fibrillation, unspecified type ([facility]) COPD mixed type ([facility]) Open wound of buttock, unspecified laterality, initial encounter- Primary Type 2 diabetes mellitus without complication, with long-term current use of insulin ([facility]) Obesity (BMI 30-39.9) Dizziness and giddiness Viral upper respiratory tract infection- Primary Acute upper respiratory infections of unspecified site Tobacco user Tobacco use disorder Open wound Open wound(s) (multiple) of unspecified site(s), without mention of complication Obesity (BMI 30-39.9) Type 2 diabetes mellitus without complication, with long-term current use of insulin ([facility]) Encounter for wellness examination- Primary Osteoporosis, unspecified osteoporosis type, unspecified pathological fracture presence ([facility]) Open wound of buttock, unspecified laterality, initial encounter Type 2 diabetes mellitus without complication, with long-term current use of insulin ([facility]) Obesity (BMI 30-39.9) Tobacco user Tobacco use disorder Anxiety and depression ([facility]) Type 2 diabetes mellitus with diabetic neuropathy, with long-term current use of insulin ([facility]) COPD mixed type ([facility]) Diabetic polyneuropathy associated with type 2 diabetes mellitus ([facility]) Gastroesophageal reflux disease, unspecified whether esophagitis present Mixed hyperlipidemia ([facility]) Mixed hyperlipidemia Primary hypertension ([facility]) Unspecified essential hypertension Edema of extremities Edema Lung nodule, multiple Lymphadenopathy, generalized Vitamin D deficiency Oxygen dependent Dependence on supplemental oxygen Community acquired pneumonia, unspecified laterality COPD mixed type ([facility])- Primary SANTO (obstructive sleep apnea) Obstructive sleep apnea (adult) (pediatric) Lung nodule, multiple Community acquired pneumonia, unspecified laterality Primary hypertension ([facility]) Unspecified essential hypertension Atrial fibrillation, unspecified type ([facility]) Type 2 diabetes mellitus without complication, with long-term current use of insulin ([facility]) Tobacco user Tobacco use disorder Needs flu shot Need for prophylactic vaccination and inoculation against influenza documented in this encounter [facility] HealthcareEvaluation note* Diagnosis Type 2 diabetes mellitus with hyperglycemia ([facility])- Primary Primary hypertension ([facility]) Unspecified essential hypertension Edema of extremities Edema Type 2 diabetes mellitus without complication, with long-term current use of insulin ([facility]) Vitamin D deficiency Tobacco user Tobacco use disorder Dizziness and giddiness Atrial fibrillation, unspecified type ([facility]) COPD mixed type ([facility]) documented in this encounter [facility] HealthcareEvaluation note* Diagnosis Primary hypertension ([facility])- Primary Unspecified essential hypertension Type 2 diabetes mellitus with diabetic neuropathy, with long-term current use of insulin ([facility]) Gastroesophageal reflux disease, unspecified whether esophagitis present Vitamin D deficiency Type 2 diabetes mellitus with complication, without long-term current use of insulin ([facility]) Mixed hyperlipidemia ([facility]) Mixed hyperlipidemia Encounter for screening mammogram for malignant neoplasm of breast SANTO (obstructive sleep apnea) Obstructive sleep apnea (adult) (pediatric) COPD mixed type ([facility]) Anxiety and depression ([facility]) COVID Open wound Open wound(s) (multiple) of unspecified site(s), without mention of complication Morbid obesity with body mass index (BMI) of 40.0 to 49.9 ([facility]) COPD mixed type ([facility])- Primary Dysuria Atrial fibrillation, unspecified type ([facility]) Gastroesophageal reflux disease, unspecified whether esophagitis present Type 2 diabetes mellitus with complication, without long-term current use of insulin ([facility]) Obesity (BMI 30-39.9) Tobacco user Tobacco use disorder Anxiety and depression ([facility]) Dermatitis Contact dermatitis and other eczema, due to unspecified cause Anxiety and depression ([facility])- Primary Obesity (BMI 30-39.9) Type 2 diabetes mellitus with complication, without long-term current use of insulin ([facility]) Medical non-compliance Tobacco user Tobacco use disorder Type 2 diabetes mellitus with hyperglycemia ([facility])- Primary Primary hypertension ([facility]) Unspecified essential hypertension Edema of extremities Edema Type 2 diabetes mellitus without complication, with long-term current use of insulin ([facility]) Vitamin D deficiency Tobacco user Tobacco use disorder Dizziness and giddiness Atrial fibrillation, unspecified type ([facility]) COPD mixed type ([facility]) Open wound of buttock, unspecified laterality, initial encounter- Primary Type 2 diabetes mellitus without complication, with long-term current use of insulin ([facility]) Obesity (BMI 30-39.9) Dizziness and giddiness Viral upper respiratory tract infection- Primary Acute upper respiratory infections of unspecified site Tobacco user Tobacco use disorder Open wound Open wound(s) (multiple) of unspecified site(s), without mention of complication Obesity (BMI 30-39.9) Type 2 diabetes mellitus without complication, with long-term current use of insulin ([facility]) Encounter for wellness examination- Primary Osteoporosis, unspecified osteoporosis type, unspecified pathological fracture presence ([facility]) Open wound of buttock, unspecified laterality, initial encounter Type 2 diabetes mellitus without complication, with long-term current use of insulin ([facility]) Obesity (BMI 30-39.9) Tobacco user Tobacco use disorder Anxiety and depression ([facility]) Type 2 diabetes mellitus with diabetic neuropathy, with long-term current use of insulin ([facility]) COPD mixed type ([facility]) Diabetic polyneuropathy associated with type 2 diabetes mellitus ([facility]) Gastroesophageal reflux disease, unspecified whether esophagitis present Mixed hyperlipidemia ([facility]) Mixed hyperlipidemia Primary hypertension ([facility]) Unspecified essential hypertension Edema of extremities Edema Lung nodule, multiple Lymphadenopathy, generalized Vitamin D deficiency Oxygen dependent Dependence on supplemental oxygen Community acquired pneumonia, unspecified laterality COPD mixed type ([facility])- Primary SANTO (obstructive sleep apnea) Obstructive sleep apnea (adult) (pediatric) Lung nodule, multiple Community acquired pneumonia, unspecified laterality Primary hypertension ([facility]) Unspecified essential hypertension Atrial fibrillation, unspecified type ([facility]) Type 2 diabetes mellitus without complication, with long-term current use of insulin ([facility]) Tobacco user Tobacco use disorder Needs flu shot Need for prophylactic vaccination and inoculation against influenza Lung nodule, multiple- Primary documented in this encounter [facility] HealthcareEvaluation note* Diagnosis Primary hypertension ([facility])- Primary Unspecified essential hypertension Type 2 diabetes mellitus with diabetic neuropathy, with long-term current use of insulin ([facility]) Gastroesophageal reflux disease, unspecified whether esophagitis present Vitamin D deficiency Type 2 diabetes mellitus with complication, without long-term current use of insulin ([facility] Mixed hyperlipidemia ([facility]) Mixed hyperlipidemia Encounter for screening mammogram for malignant neoplasm of breast SANTO (obstructive sleep apnea) Obstructive sleep apnea (adult) (pediatric) COPD mixed type ([facility]) Anxiety and depression ([facility]) COVID Open wound Open wound(s) (multiple) of unspecified site(s), without mention of complication Morbid obesity with body mass index (BMI) of 40.0 to 49.9 ([facility]) COPD mixed type ([facility])- Primary Dysuria Atrial fibrillation, unspecified type ([facility]) Gastroesophageal reflux disease, unspecified whether esophagitis present Type 2 diabetes mellitus with complication, without long-term current use of insulin ([facility]) Obesity (BMI 30-39.9) Tobacco user Tobacco use disorder Anxiety and depression ([facility]) Dermatitis Contact dermatitis and other eczema, due to unspecified cause Anxiety and depression ([facility])- Primary Obesity (BMI 30-39.9) Type 2 diabetes mellitus with complication, without long-term current use of insulin ([facility]) Medical non-compliance Tobacco user Tobacco use disorder Type 2 diabetes mellitus with hyperglycemia ([facility])- Primary Primary hypertension ([facility]) Unspecified essential hypertension Edema of extremities Edema Type 2 diabetes mellitus without complication, with long-term current use of insulin ([facility]) Vitamin D deficiency Tobacco user Tobacco use disorder Dizziness and giddiness Atrial fibrillation, unspecified type (CMS/HCC) COPD mixed type ([facility]) Open wound of buttock, unspecified laterality, initial encounter- Primary Type 2 diabetes mellitus without complication, with long-term current use of insulin ([facility]) Obesity (BMI 30-39.9) Dizziness and giddiness Viral upper respiratory tract infection- Primary Acute upper respiratory infections of unspecified site Tobacco user Tobacco use disorder Open wound Open wound(s) (multiple) of unspecified site(s), without mention of complication Obesity (BMI 30-39.9) Type 2 diabetes mellitus without complication, with long-term current use of insulin ([facility]) Encounter for wellness examination- Primary Osteoporosis, unspecified osteoporosis type, unspecified pathological fracture presence ([facility]) Open wound of buttock, unspecified laterality, initial encounter Type 2 diabetes mellitus without complication, with long-term current use of insulin ([facility]) Obesity (BMI 30-39.9) Tobacco user Tobacco use disorder Anxiety and depression ([facility]) Type 2 diabetes mellitus with diabetic neuropathy, with long-term current use of insulin ([facility]) COPD mixed type ([facility]) Diabetic polyneuropathy associated with type 2 diabetes mellitus ([facility]) Gastroesophageal reflux disease, unspecified whether esophagitis present Mixed hyperlipidemia ([facility]) Mixed hyperlipidemia Primary hypertension ([facility]) Unspecified essential hypertension Edema of extremities Edema Lung nodule, multiple Lymphadenopathy, generalized Vitamin D deficiency Oxygen dependent Dependence on supplemental oxygen Community acquired pneumonia, unspecified laterality COPD mixed type ([facility])- Primary SANTO (obstructive sleep apnea) Obstructive sleep apnea (adult) (pediatric) Lung nodule, multiple Community acquired pneumonia, unspecified laterality Primary hypertension ([facility]) Unspecified essential hypertension Atrial fibrillation, unspecified type ([facility]) Type 2 diabetes mellitus without complication, with long-term current use of insulin ([facility]) Tobacco user Tobacco use disorder Needs flu shot Need for prophylactic vaccination and inoculation against influenza Right wrist pain- Primary Pain in joint, forearm Obesity (BMI 30-39.9) documented in this encounter [facility] HealthcareEvaluation note* Diagnosis Primary hypertension ([facility])- Primary Unspecified essential hypertension Type 2 diabetes mellitus with diabetic neuropathy, with long-term current use of insulin ([facility]) Gastroesophageal reflux disease, unspecified whether esophagitis present Vitamin D deficiency Type 2 diabetes mellitus with complication, without long-term current use of insulin ([facility] Mixed hyperlipidemia ([facility]) Mixed hyperlipidemia Encounter for screening mammogram for malignant neoplasm of breast SANTO (obstructive sleep apnea) Obstructive sleep apnea (adult) (pediatric) COPD mixed type ([facility]) Anxiety and depression ([facility]) COVID Open wound Open wound(s) (multiple) of unspecified site(s), without mention of complication Morbid obesity with body mass index (BMI) of 40.0 to 49.9 ([facility]) COPD mixed type ([facility])- Primary Dysuria Atrial fibrillation, unspecified type ([facility]) Gastroesophageal reflux disease, unspecified whether esophagitis present Type 2 diabetes mellitus with complication, without long-term current use of insulin ([facility]) Obesity (BMI 30-39.9) Tobacco user Tobacco use disorder Anxiety and depression ([facility]) Dermatitis Contact dermatitis and other eczema, due to unspecified cause Anxiety and depression ([facility])- Primary Obesity (BMI 30-39.9) Type 2 diabetes mellitus with complication, without long-term current use of insulin ([facility]) Medical non-compliance Tobacco user Tobacco use disorder Type 2 diabetes mellitus with hyperglycemia ([facility])- Primary Primary hypertension ([facility]) Unspecified essential hypertension Edema of extremities Edema Type 2 diabetes mellitus without complication, with long-term current use of insulin ([facility]) Vitamin D deficiency Tobacco user Tobacco use disorder Dizziness and giddiness Atrial fibrillation, unspecified type ([facility]) COPD mixed type ([facility]) Open wound of buttock, unspecified laterality, initial encounter- Primary Type 2 diabetes mellitus without complication, with long-term current use of insulin ([facility]) Obesity (BMI 30-39.9) Dizziness and giddiness Viral upper respiratory tract infection- Primary Acute upper respiratory infections of unspecified site Tobacco user Tobacco use disorder Open wound Open wound(s) (multiple) of unspecified site(s), without mention of complication Obesity (BMI 30-39.9) Type 2 diabetes mellitus without complication, with long-term current use of insulin ([facility]) Type 2 diabetes mellitus with hyperglycemia, with long-term current use of insulin ([facility])- Primary Encounter for dietary consultation Vitamin D deficiency Primary hypertension ([facility]) Unspecified essential hypertension Hyperlipemia, mixed ([facility]) Mixed hyperlipidemia Insulin long-term use ([facility]) Encounter for long-term (current) use of insulin Class 1 obesity due to excess calories without serious comorbidity with body mass index (BMI) of 33.0 to 33.9 in adult documented in this encounter [facility] HealthcareEvaluation note* Diagnosis Open wound of buttock, unspecified laterality, initial encounter- Primary Type 2 diabetes mellitus without complication, with long-term current use of insulin ([facility]) Obesity (BMI 30-39.9) Dizziness and giddiness documented in this encounter [facility] HealthcareEvaluation note* Diagnosis Primary hypertension ([facility])- Primary Unspecified essential hypertension Type 2 diabetes mellitus with diabetic neuropathy, with long-term current use of insulin ([facility]) Gastroesophageal reflux disease, unspecified whether esophagitis present Vitamin D deficiency Type 2 diabetes mellitus with complication, without long-term current use of insulin ([facility]) Mixed hyperlipidemia ([facility]) Mixed hyperlipidemia Encounter for screening mammogram for malignant neoplasm of breast SNATO (obstructive sleep apnea) Obstructive sleep apnea (adult) (pediatric) COPD mixed type ([facility]) Anxiety and depression ([facility]) COVID Open wound Open wound(s) (multiple) of unspecified site(s), without mention of complication Morbid obesity with body mass index (BMI) of 40.0 to 49.9 ([facility]) COPD mixed type ([facility])- Primary Dysuria Atrial fibrillation, unspecified type ([facility]) Gastroesophageal reflux disease, unspecified whether esophagitis present Type 2 diabetes mellitus with complication, without long-term current use of insulin ([facility]) Obesity (BMI 30-39.9) Tobacco user Tobacco use disorder Anxiety and depression ([facility]) Dermatitis Contact dermatitis and other eczema, due to unspecified cause Anxiety and depression ([facility])- Primary Obesity (BMI 30-39.9) Type 2 diabetes mellitus with complication, without long-term current use of insulin ([facility]) Medical non-compliance Tobacco user Tobacco use disorder Type 2 diabetes mellitus with hyperglycemia ([facility])- Primary Primary hypertension ([facility]) Unspecified essential hypertension Edema of extremities Edema Type 2 diabetes mellitus without complication, with long-term current use of insulin ([facility]) Vitamin D deficiency Tobacco user Tobacco use disorder Dizziness and giddiness Atrial fibrillation, unspecified type ([facility]) COPD mixed type ([facility]) Open wound of buttock, unspecified laterality, initial encounter- Primary Type 2 diabetes mellitus without complication, with long-term current use of insulin ([facility]) Obesity (BMI 30-39.9) Dizziness and giddiness Viral upper respiratory tract infection- Primary Acute upper respiratory infections of unspecified site Tobacco user Tobacco use disorder Open wound Open wound(s) (multiple) of unspecified site(s), without mention of complication Obesity (BMI 30-39.9) Type 2 diabetes mellitus without complication, with long-term current use of insulin ([facility]) Encounter for wellness examination- Primary Osteoporosis, unspecified osteoporosis type, unspecified pathological fracture presence ([facility]) Open wound of buttock, unspecified laterality, initial encounter Type 2 diabetes mellitus without complication, with long-term current use of insulin ([facility]) Obesity (BMI 30-39.9) Tobacco user Tobacco use disorder Anxiety and depression ([facility]) Type 2 diabetes mellitus with diabetic neuropathy, with long-term current use of insulin ([facility]) COPD mixed type ([facility]) Diabetic polyneuropathy associated with type 2 diabetes mellitus ([facility]) Gastroesophageal reflux disease, unspecified whether esophagitis present Mixed hyperlipidemia ([facility]) Mixed hyperlipidemia Primary hypertension ([facility]) Unspecified essential hypertension Edema of extremities Edema Lung nodule, multiple Lymphadenopathy, generalized Vitamin D deficiency Oxygen dependent Dependence on supplemental oxygen Community acquired pneumonia, unspecified laterality COPD mixed type ([facility])- Primary SANTO (obstructive sleep apnea) Obstructive sleep apnea (adult) (pediatric) Lung nodule, multiple Community acquired pneumonia, unspecified laterality Primary hypertension ([facility]) Unspecified essential hypertension Atrial fibrillation, unspecified type ([facility]) Type 2 diabetes mellitus without complication, with long-term current use of insulin ([facility]) Tobacco user Tobacco use disorder Needs flu shot Need for prophylactic vaccination and inoculation against influenza Right wrist pain- Primary Pain in joint, forearm Obesity (BMI 30-39.9) Lung nodule, multiple- Primary COPD mixed type ([facility]) documented in this encounter [facility]* Diagnosis Primary hypertension ([facility])- Primary Unspecified essential hypertension Type 2 diabetes mellitus with diabetic neuropathy, with long-term current use of insulin ([facility]) Gastroesophageal reflux disease, unspecified whether esophagitis present Vitamin D deficiency Type 2 diabetes mellitus with complication, without long-term current use of insulin ([facility]) Mixed hyperlipidemia ([facility]) Mixed hyperlipidemia Encounter for screening mammogram for malignant neoplasm of breast SANTO (obstructive sleep apnea) Obstructive sleep apnea (adult) (pediatric) COPD mixed type ([facility]) Anxiety and depression ([facility]) COVID Open wound Open wound(s) (multiple) of unspecified site(s), without mention of complication Morbid obesity with body mass index (BMI) of 40.0 to 49.9 ([facility]) COPD mixed type ([facility])- Primary Dysuria Atrial fibrillation, unspecified type ([facility]) Gastroesophageal reflux disease, unspecified whether esophagitis present Type 2 diabetes mellitus with complication, without long-term current use of insulin ([facility]) Obesity (BMI 30-39.9) Tobacco user Tobacco use disorder Anxiety and depression ([facility]) Dermatitis Contact dermatitis and other eczema, due to unspecified cause Anxiety and depression ([facility] Primary Obesity (BMI 30-39.9) Type 2 diabetes mellitus with complication, without long-term current use of insulin ([facility]) Medical non-compliance Tobacco user Tobacco use disorder Type 2 diabetes mellitus with hyperglycemia ([facility])- Primary Primary hypertension ([facility]) Unspecified essential hypertension Edema of extremities Edema Type 2 diabetes mellitus without complication, with long-term current use of insulin ([facility]) Vitamin D deficiency Tobacco user Tobacco use disorder Dizziness and giddiness Atrial fibrillation, unspecified type ([facility]) COPD mixed type ([facility]) Open wound of buttock, unspecified laterality, initial encounter- Primary Type 2 diabetes mellitus without complication, with long-term current use of insulin ([facility]) Obesity (BMI 30-39.9) Dizziness and giddiness Viral upper respiratory tract infection- Primary Acute upper respiratory infections of unspecified site Tobacco user Tobacco use disorder Open wound Open wound(s) (multiple) of unspecified site(s), without mention of complication Obesity (BMI 30-39.9) Type 2 diabetes mellitus without complication, with long-term current use of insulin ([facility]) Encounter for wellness examination- Primary Osteoporosis, unspecified osteoporosis type, unspecified pathological fracture presence ([facility]) Open wound of buttock, unspecified laterality, initial encounter Type 2 diabetes mellitus without complication, with long-term current use of insulin ([facility]) Obesity (BMI 30-39.9) Tobacco user Tobacco use disorder Anxiety and depression ([facility]) Type 2 diabetes mellitus with diabetic neuropathy, with long-term current use of insulin ([facility]) COPD mixed type ([facility]) Diabetic polyneuropathy associated with type 2 diabetes mellitus ([facility]) Gastroesophageal reflux disease, unspecified whether esophagitis present Mixed hyperlipidemia (CMS/HCC) Mixed hyperlipidemia Primary hypertension (CMS/[facility]) Unspecified essential hypertension Edema of extremities Edema Lung nodule, multiple Lymphadenopathy, generalized Vitamin D deficiency Oxygen dependent Dependence on supplemental oxygen Community acquired pneumonia, unspecified laterality COPD mixed type (CMS/HCC)- Primary SANTO (obstructive sleep apnea) Obstructive sleep apnea (adult) (pediatric) Lung nodule, multiple Community acquired pneumonia, unspecified laterality Primary hypertension (CMS/HCC) Unspecified essential hypertension Atrial fibrillation, unspecified type (CMS/[facility]) Type 2 diabetes mellitus without complication, with long-term current use of insulin (CMS/[facility]) Tobacco user Tobacco use disorder Needs flu shot Need for prophylactic vaccination and inoculation against influenza Right wrist pain- Primary Pain in joint, forearm Obesity (BMI 30-39.9) 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 (CMS/[facility])- Primary documented in this encounter [facility]* Diagnosis Primary hypertension (CMS/[facility])- Primary Unspecified essential hypertension Type 2 diabetes mellitus with diabetic neuropathy, with long-term current use of insulin ([facility]) Gastroesophageal reflux disease, unspecified whether esophagitis present Vitamin D deficiency Type 2 diabetes mellitus with complication, without long-term current use of insulin (CMS/[facility]) Mixed hyperlipidemia (CMS/[facility]) Mixed hyperlipidemia Encounter for screening mammogram for malignant neoplasm of breast SANTO (obstructive sleep apnea) Obstructive sleep apnea (adult) (pediatric) COPD mixed type ([facility]) Anxiety and depression ([facility]) COVID Open wound Open wound(s) (multiple) of unspecified site(s), without mention of complication Morbid obesity with body mass index (BMI) of 40.0 to 49.9 ([facility]) COPD mixed type (CMS/HCC)- Primary Dysuria Atrial fibrillation, unspecified type (CMS/[facility]) Gastroesophageal reflux disease, unspecified whether esophagitis present Type 2 diabetes mellitus with complication, without long-term current use of insulin ([facility]) Obesity (BMI 30-39.9) Tobacco user Tobacco use disorder Anxiety and depression ([facility]) Dermatitis Contact dermatitis and other eczema, due to unspecified cause Anxiety and depression ([facility]/HCC)- Primary Obesity (BMI 30-39.9) Type 2 diabetes mellitus with complication, without long-term current use of insulin (CMS/[facility]) Medical non-compliance Tobacco user Tobacco use disorder Type 2 diabetes mellitus with hyperglycemia ([facility])- Primary Primary hypertension ([facility]) Unspecified essential hypertension Edema of extremities Edema Type 2 diabetes mellitus without complication, with long-term current use of insulin ([facility]) Vitamin D deficiency Tobacco user Tobacco use disorder Dizziness and giddiness Atrial fibrillation, unspecified type ([facility]) COPD mixed type ([facility]) Open wound of buttock, unspecified laterality, initial encounter- Primary Type 2 diabetes mellitus without complication, with long-term current use of insulin ([facility]) Obesity (BMI 30-39.9) Dizziness and giddiness Viral upper respiratory tract infection- Primary Acute upper respiratory infections of unspecified site Tobacco user Tobacco use disorder Open wound Open wound(s) (multiple) of unspecified site(s), without mention of complication Obesity (BMI 30-39.9) Type 2 diabetes mellitus without complication, with long-term current use of insulin ([facility]) Encounter for wellness examination- Primary Osteoporosis, unspecified osteoporosis type, unspecified pathological fracture presence ([facility]) Open wound of buttock, unspecified laterality, initial encounter Type 2 diabetes mellitus without complication, with long-term current use of insulin ([facility]) Obesity (BMI 30-39.9) Tobacco user Tobacco use disorder Anxiety and depression ([facility]) Type 2 diabetes mellitus with diabetic neuropathy, with long-term current use of insulin ([facility]) COPD mixed type ([facility]) Diabetic polyneuropathy associated with type 2 diabetes mellitus ([facility]) Gastroesophageal reflux disease, unspecified whether esophagitis present Mixed hyperlipidemia ([facility]) Mixed hyperlipidemia Primary hypertension ([facility]) Unspecified essential hypertension Edema of extremities Edema Lung nodule, multiple Lymphadenopathy, generalized Vitamin D deficiency Oxygen dependent Dependence on supplemental oxygen Community acquired pneumonia, unspecified laterality COPD mixed type ([facility])- Primary SANTO (obstructive sleep apnea) Obstructive sleep apnea (adult) (pediatric) Lung nodule, multiple Community acquired pneumonia, unspecified laterality Primary hypertension ([facility]) Unspecified essential hypertension Atrial fibrillation, unspecified type ([facility]) Type 2 diabetes mellitus without complication, with long-term current use of insulin ([facility]) Tobacco user Tobacco use disorder Needs flu shot Need for prophylactic vaccination and inoculation against influenza Right wrist pain- Primary Pain in joint, forearm Obesity (BMI 30-39.9) 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 ([facility])- Primary Oxygen dependent- Primary Dependence on supplemental oxygen COPD mixed type ([facility]) Obesity (BMI 30-39.9) COPD with acute exacerbation ([facility]) documented in this encounter [facility]* Diagnosis Primary hypertension ([facility])- Primary Unspecified essential hypertension Type 2 diabetes mellitus with diabetic neuropathy, with long-term current use of insulin ([facility]) Gastroesophageal reflux disease, unspecified whether esophagitis present Vitamin D deficiency Type 2 diabetes mellitus with complication, without long-term current use of insulin ([facility] Mixed hyperlipidemia ([facility]) Mixed hyperlipidemia Encounter for screening mammogram for malignant neoplasm of breast SANTO (obstructive sleep apnea) Obstructive sleep apnea (adult) (pediatric) COPD mixed type ([facility]) Anxiety and depression ([facility]) COVID Open wound Open wound(s) (multiple) of unspecified site(s), without mention of complication Morbid obesity with body mass index (BMI) of 40.0 to 49.9 ([facility]) COPD mixed type ([facility])- Primary Dysuria Atrial fibrillation, unspecified type ([facility]) Gastroesophageal reflux disease, unspecified whether esophagitis present Type 2 diabetes mellitus with complication, without long-term current use of insulin ([facility]) Obesity (BMI 30-39.9) Tobacco user Tobacco use disorder Anxiety and depression ([facility]) Dermatitis Contact dermatitis and other eczema, due to unspecified cause Anxiety and depression ([facility])- Primary Obesity (BMI 30-39.9) Type 2 diabetes mellitus with complication, without long-term current use of insulin ([facility]) Medical non-compliance Tobacco user Tobacco use disorder Type 2 diabetes mellitus with hyperglycemia ([facility])- Primary Primary hypertension ([facility]) Unspecified essential hypertension Edema of extremities Edema Type 2 diabetes mellitus without complication, with long-term current use of insulin ([facility]) Vitamin D deficiency Tobacco user Tobacco use disorder Dizziness and giddiness Atrial fibrillation, unspecified type ([facility]) COPD mixed type ([facility]) Open wound of buttock, unspecified laterality, initial encounter- Primary Type 2 diabetes mellitus without complication, with long-term current use of insulin ([facility]) Obesity (BMI 30-39.9) Dizziness and giddiness Viral upper respiratory tract infection- Primary Acute upper respiratory infections of unspecified site Tobacco user Tobacco use disorder Open wound Open wound(s) (multiple) of unspecified site(s), without mention of complication Obesity (BMI 30-39.9) Type 2 diabetes mellitus without complication, with long-term current use of insulin ([facility]) Encounter for wellness examination- Primary Osteoporosis, unspecified osteoporosis type, unspecified pathological fracture presence ([facility]) Open wound of buttock, unspecified laterality, initial encounter Type 2 diabetes mellitus without complication, with long-term current use of insulin ([facility]) Obesity (BMI 30-39.9) Tobacco user Tobacco use disorder Anxiety and depression ([facility]) Type 2 diabetes mellitus with diabetic neuropathy, with long-term current use of insulin ([facility]) COPD mixed type ([facility]) Diabetic polyneuropathy associated with type 2 diabetes mellitus ([facility]) Gastroesophageal reflux disease, unspecified whether esophagitis present Mixed hyperlipidemia ([facility]) Mixed hyperlipidemia Primary hypertension ([facility]) Unspecified essential hypertension Edema of extremities Edema Lung nodule, multiple Lymphadenopathy, generalized Vitamin D deficiency Oxygen dependent Dependence on supplemental oxygen Community acquired pneumonia, unspecified laterality COPD mixed type ([facility])- Primary SANTO (obstructive sleep apnea) Obstructive sleep apnea (adult) (pediatric) Lung nodule, multiple Community acquired pneumonia, unspecified laterality Primary hypertension ([facility]) Unspecified essential hypertension Atrial fibrillation, unspecified type ([facility]) Type 2 diabetes mellitus without complication, with long-term current use of insulin ([facility]) Tobacco user Tobacco use disorder Needs flu shot Need for prophylactic vaccination and inoculation against influenza Right wrist pain- Primary Pain in joint, forearm Obesity (BMI 30-39.9) 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 ([facility])- Primary COPD with acute exacerbation ([facility])- Primary Oxygen dependent Dependence on supplemental oxygen COPD mixed type ([facility]) Obesity (BMI 30-39.9) COPD mixed type ([facility]) documented in this encounter [facility]* Diagnosis Primary hypertension ([facility])- Primary Unspecified essential hypertension Type 2 diabetes mellitus with diabetic neuropathy, with long-term current use of insulin ([facility]) Gastroesophageal reflux disease, unspecified whether esophagitis present Vitamin D deficiency Type 2 diabetes mellitus with complication, without long-term current use of insulin ([facility]) Mixed hyperlipidemia ([facility]) Mixed hyperlipidemia Encounter for screening mammogram for malignant neoplasm of breast SANTO (obstructive sleep apnea) Obstructive sleep apnea (adult) (pediatric) COPD mixed type ([facility]) Anxiety and depression ([facility]) COVID Open wound Open wound(s) (multiple) of unspecified site(s), without mention of complication Morbid obesity with body mass index (BMI) of 40.0 to 49.9 ([facility]) COPD mixed type ([facility])- Primary Dysuria Atrial fibrillation, unspecified type ([facility]) Gastroesophageal reflux disease, unspecified whether esophagitis present Type 2 diabetes mellitus with complication, without long-term current use of insulin ([facility]) Obesity (BMI 30-39.9) Tobacco user Tobacco use disorder Anxiety and depression ([facility]) Dermatitis Contact dermatitis and other eczema, due to unspecified cause Anxiety and depression ([facility])- Primary Obesity (BMI 30-39.9) Type 2 diabetes mellitus with complication, without long-term current use of insulin ([facility]) Medical non-compliance Tobacco user Tobacco use disorder Type 2 diabetes mellitus with hyperglycemia ([facility] Primary Primary hypertension ([facility]) Unspecified essential hypertension Edema of extremities Edema Type 2 diabetes mellitus without complication, with long-term current use of insulin ([facility]) Vitamin D deficiency Tobacco user Tobacco use disorder Dizziness and giddiness Atrial fibrillation, unspecified type ([facility]) COPD mixed type ([facility]) Open wound of buttock, unspecified laterality, initial encounter- Primary Type 2 diabetes mellitus without complication, with long-term current use of insulin ([facility]) Obesity (BMI 30-39.9) Dizziness and giddiness Viral upper respiratory tract infection- Primary Acute upper respiratory infections of unspecified site Tobacco user Tobacco use disorder Open wound Open wound(s) (multiple) of unspecified site(s), without mention of complication Obesity (BMI 30-39.9) Type 2 diabetes mellitus without complication, with long-term current use of insulin ([facility]) Encounter for wellness examination- Primary Osteoporosis, unspecified osteoporosis type, unspecified pathological fracture presence ([facility]) Open wound of buttock, unspecified laterality, initial encounter Type 2 diabetes mellitus without complication, with long-term current use of insulin ([facility]) Obesity (BMI 30-39.9) Tobacco user Tobacco use disorder Anxiety and depression ([facility]) Type 2 diabetes mellitus with diabetic neuropathy, with long-term current use of insulin ([facility]) COPD mixed type ([facility]) Diabetic polyneuropathy associated with type 2 diabetes mellitus ([facility]) Gastroesophageal reflux disease, unspecified whether esophagitis present Mixed hyperlipidemia ([facility]) Mixed hyperlipidemia Primary hypertension ([facility]) Unspecified essential hypertension Edema of extremities Edema Lung nodule, multiple Lymphadenopathy, generalized Vitamin D deficiency Oxygen dependent Dependence on supplemental oxygen Community acquired pneumonia, unspecified laterality COPD mixed type ([facility])- Primary SANTO (obstructive sleep apnea) Obstructive sleep apnea (adult) (pediatric) Lung nodule, multiple Community acquired pneumonia, unspecified laterality Primary hypertension ([facility]) Unspecified essential hypertension Atrial fibrillation, unspecified type ([facility]) Type 2 diabetes mellitus without complication, with long-term current use of insulin ([facility]) Tobacco user Tobacco use disorder Needs flu shot Need for prophylactic vaccination and inoculation against influenza Right wrist pain- Primary Pain in joint, forearm Obesity (BMI 30-39.9) 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 ([facility])- Primary COPD with acute exacerbation ([facility])- Primary Oxygen dependent Dependence on supplemental oxygen COPD mixed type ([facility] Obesity (BMI 30-39.9) COVID- Primary Type 2 diabetes mellitus with diabetic polyneuropathy ([facility]) Type 2 diabetes mellitus with hyperglycemia ([facility]) 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 classified elsewhere ([facility]) retirement (current) use of insulin ([facility] COPD mixed type ([facility] Paroxysmal atrial fibrillation ([facility]) Atrial fibrillation Primary hypertension ([facility] Unspecified essential hypertension Tobacco user Tobacco use disorder documented in this encounter [facility]* Diagnosis Primary hypertension ([facility])- Primary Unspecified essential hypertension Type 2 diabetes mellitus with diabetic neuropathy, with long-term current use of insulin ([facility]) Gastroesophageal reflux disease, unspecified whether esophagitis present Vitamin D deficiency Type 2 diabetes mellitus with complication, without long-term current use of insulin ([facility] Mixed hyperlipidemia ([facility]) Mixed hyperlipidemia Encounter for screening mammogram for malignant neoplasm of breast SANTO (obstructive sleep apnea) Obstructive sleep apnea (adult) (pediatric) COPD mixed type ([facility]) Anxiety and depression ([facility]) COVID Open wound Open wound(s) (multiple) of unspecified site(s), without mention of complication Morbid obesity with body mass index (BMI) of 40.0 to 49.9 ([facility] COPD mixed type ([facility])- Primary Dysuria Atrial fibrillation, unspecified type ([facility]) Gastroesophageal reflux disease, unspecified whether esophagitis present Type 2 diabetes mellitus with complication, without long-term current use of insulin ([facility]) Obesity (BMI 30-39.9) Tobacco user Tobacco use disorder Anxiety and depression ([facility]) Dermatitis Contact dermatitis and other eczema, due to unspecified cause Anxiety and depression ([facility] [place] Primary Obesity (BMI 30-39.9) Type 2 diabetes mellitus with complication, without long-term current use of insulin ([facility]) Medical non-compliance Tobacco user Tobacco use disorder Type 2 diabetes mellitus with hyperglycemia ([facility] [place])- Primary Primary hypertension ([facility]) Unspecified essential hypertension Edema of extremities Edema Type 2 diabetes mellitus without complication, with long-term current use of insulin ([facility]) Vitamin D deficiency Tobacco user Tobacco use disorder Dizziness and giddiness Atrial fibrillation, unspecified type ([facility]) COPD mixed type ([facility]) Open wound of buttock, unspecified laterality, initial encounter- Primary Type 2 diabetes mellitus without complication, with long-term current use of insulin ([facility]) Obesity (BMI 30-39.9) Dizziness and giddiness Viral upper respiratory tract infection- Primary Acute upper respiratory infections of unspecified site Tobacco user Tobacco use disorder Open wound Open wound(s) (multiple) of unspecified site(s), without mention of complication Obesity (BMI 30-39.9) Type 2 diabetes mellitus without complication, with long-term current use of insulin ([facility]) Encounter for wellness examination- Primary Osteoporosis, unspecified osteoporosis type, unspecified pathological fracture presence ([facility]) Open wound of buttock, unspecified laterality, initial encounter Type 2 diabetes mellitus without complication, with long-term current use of insulin ([facility]) Obesity (BMI 30-39.9) Tobacco user Tobacco use disorder Anxiety and depression ([facility]) Type 2 diabetes mellitus with diabetic neuropathy, with long-term current use of insulin ([facility] COPD mixed type ([facility]) Diabetic polyneuropathy associated with type 2 diabetes mellitus ([facility]) Gastroesophageal reflux disease, unspecified whether esophagitis present Mixed hyperlipidemia ([facility]) Mixed hyperlipidemia Primary hypertension ([facility]) Unspecified essential hypertension Edema of extremities Edema Lung nodule, multiple Lymphadenopathy, generalized Vitamin D deficiency Oxygen dependent Dependence on supplemental oxygen Community acquired pneumonia, unspecified laterality COPD mixed type ([facility])- Primary SANTO (obstructive sleep apnea) Obstructive sleep apnea (adult) (pediatric) Lung nodule, multiple Community acquired pneumonia, unspecified laterality Primary hypertension ([facility]) Unspecified essential hypertension Atrial fibrillation, unspecified type ([facility]) Type 2 diabetes mellitus without complication, with long-term current use of insulin ([facility]) Tobacco user Tobacco use disorder Needs flu shot Need for prophylactic vaccination and inoculation against influenza Right wrist pain- Primary Pain in joint, forearm Obesity (BMI 30-39.9) 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 ([facility] Primary COPD with acute exacerbation ([facility])- Primary Oxygen dependent Dependence on supplemental oxygen COPD mixed type ([facility] Obesity (BMI 30-39.9) COVID- Primary Type 2 diabetes mellitus with diabetic polyneuropathy ([facility]) Type 2 diabetes mellitus with hyperglycemia ([facility]) 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 classified elsewhere ([facility]) retirement (current) use of insulin ([facility] COPD mixed type ([facility] Paroxysmal atrial fibrillation ([facility] Atrial fibrillation Primary hypertension ([facility]) Unspecified essential hypertension Tobacco user Tobacco use disorder 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 ([facility])- Primary documented in this encounter [facility]* Diagnosis Primary hypertension ([facility])- Primary Unspecified essential hypertension Type 2 diabetes mellitus with diabetic neuropathy, with long-term current use of insulin ([facility]) Gastroesophageal reflux disease, unspecified whether esophagitis present Vitamin D deficiency Type 2 diabetes mellitus with complication, without long-term current use of insulin ([facility]) Mixed hyperlipidemia ([facility]) Mixed hyperlipidemia Encounter for screening mammogram for malignant neoplasm of breast SANTO (obstructive sleep apnea) Obstructive sleep apnea (adult) (pediatric) COPD mixed type ([facility]) Anxiety and depression ([facility]) COVID Open wound Open wound(s) (multiple) of unspecified site(s), without mention of complication Morbid obesity with body mass index (BMI) of 40.0 to 49.9 ([facility]) COPD mixed type ([facility])- Primary Dysuria Atrial fibrillation, unspecified type ([facility]) Gastroesophageal reflux disease, unspecified whether esophagitis present Type 2 diabetes mellitus with complication, without long-term current use of insulin ([facility]) Obesity (BMI 30-39.9) Tobacco user Tobacco use disorder Anxiety and depression ([facility]) Dermatitis Contact dermatitis and other eczema, due to unspecified cause Anxiety and depression ([facility])- Primary Obesity (BMI 30-39.9) Type 2 diabetes mellitus with complication, without long-term current use of insulin ([facility]) Medical non-compliance Tobacco user Tobacco use disorder Type 2 diabetes mellitus with hyperglycemia ([facility] Primary Primary hypertension ([facility]) Unspecified essential hypertension Edema of extremities Edema Type 2 diabetes mellitus without complication, with long-term current use of insulin ([facility]) Vitamin D deficiency Tobacco user Tobacco use disorder Dizziness and giddiness Atrial fibrillation, unspecified type ([facility]) COPD mixed type ([facility]) Open wound of buttock, unspecified laterality, initial encounter- Primary Type 2 diabetes mellitus without complication, with long-term current use of insulin ([facility]) Obesity (BMI 30-39.9) Dizziness and giddiness Viral upper respiratory tract infection- Primary Acute upper respiratory infections of unspecified site Tobacco user Tobacco use disorder Open wound Open wound(s) (multiple) of unspecified site(s), without mention of complication Obesity (BMI 30-39.9) Type 2 diabetes mellitus without complication, with long-term current use of insulin ([facility]) Encounter for wellness examination- Primary Osteoporosis, unspecified osteoporosis type, unspecified pathological fracture presence ([facility]) Open wound of buttock, unspecified laterality, initial encounter Type 2 diabetes mellitus without complication, with long-term current use of insulin ([facility]) Obesity (BMI 30-39.9) Tobacco user Tobacco use disorder Anxiety and depression ([facility]) Type 2 diabetes mellitus with diabetic neuropathy, with long-term current use of insulin ([facility]) COPD mixed type ([facility]) Diabetic polyneuropathy associated with type 2 diabetes mellitus ([facility]) Gastroesophageal reflux disease, unspecified whether esophagitis present Mixed hyperlipidemia ([facility]) Mixed hyperlipidemia Primary hypertension ([facility]) Unspecified essential hypertension Edema of extremities Edema Lung nodule, multiple Lymphadenopathy, generalized Vitamin D deficiency Oxygen dependent Dependence on supplemental oxygen Community acquired pneumonia, unspecified laterality COPD mixed type ([facility])- Primary SANTO (obstructive sleep apnea) Obstructive sleep apnea (adult) (pediatric) Lung nodule, multiple Community acquired pneumonia, unspecified laterality Primary hypertension ([facility]) Unspecified essential hypertension Atrial fibrillation, unspecified type ([facility]) Type 2 diabetes mellitus without complication, with long-term current use of insulin ([facility]) Tobacco user Tobacco use disorder Needs flu shot Need for prophylactic vaccination and inoculation against influenza Right wrist pain- Primary Pain in joint, forearm Obesity (BMI 30-39.9) 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 ([facility])- Primary COPD with acute exacerbation ([facility])- Primary Oxygen dependent Dependence on supplemental oxygen COPD mixed type ([facility]) Obesity (BMI 30-39.9) COVID- Primary Type 2 diabetes mellitus with diabetic polyneuropathy ([facility]) Type 2 diabetes mellitus with hyperglycemia ([facility]) 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 classified elsewhere ([facility]) retirement (current) use of insulin ([facility] COPD mixed type ([facility] Paroxysmal atrial fibrillation ([facility] Atrial fibrillation Primary hypertension ([facility]) Unspecified essential hypertension Tobacco user Tobacco use disorder Type 2 diabetes mellitus without complication, with long-term current use of insulin ([facility])- Primary documented in this encounter [facility] HealthcareEvaluation note* Diagnosis Primary hypertension ([facility])- Primary Unspecified essential hypertension Type 2 diabetes mellitus with diabetic neuropathy, with long-term current use of insulin ([facility]) Gastroesophageal reflux disease, unspecified whether esophagitis present Vitamin D deficiency Type 2 diabetes mellitus with complication, without long-term current use of insulin ([facility] Mixed hyperlipidemia ([facility]) Mixed hyperlipidemia Encounter for screening mammogram for malignant neoplasm of breast SANTO (obstructive sleep apnea) Obstructive sleep apnea (adult) (pediatric) COPD mixed type ([facility]) Anxiety and depression ([facility]) COVID Open wound Open wound(s) (multiple) of unspecified site(s), without mention of complication Morbid obesity with body mass index (BMI) of 40.0 to 49.9 ([facility]) COPD mixed type ([facility]/H[facility])- Primary Dysuria Atrial fibrillation, unspecified type ([facility]) Gastroesophageal reflux disease, unspecified whether esophagitis present Type 2 diabetes mellitus with complication, without long-term current use of insulin ([facility]) Obesity (BMI 30-39.9) Tobacco user Tobacco use disorder Anxiety and depression ([facility]) Dermatitis Contact dermatitis and other eczema, due to unspecified cause Anxiety and depression ([facility] Primary Obesity (BMI 30-39.9) Type 2 diabetes mellitus with complication, without long-term current use of insulin ([facility]) Medical non-compliance Tobacco user Tobacco use disorder Type 2 diabetes mellitus with hyperglycemia ([facility])- Primary Primary hypertension ([facility]) Unspecified essential hypertension Edema of extremities Edema Type 2 diabetes mellitus without complication, with long-term current use of insulin ([facility]) Vitamin D deficiency Tobacco user Tobacco use disorder Dizziness and giddiness Atrial fibrillation, unspecified type ([facility]) COPD mixed type ([facility]) Open wound of buttock, unspecified laterality, initial encounter- Primary Type 2 diabetes mellitus without complication, with long-term current use of insulin ([facility]) Obesity (BMI 30-39.9) Dizziness and giddiness Viral upper respiratory tract infection- Primary Acute upper respiratory infections of unspecified site Tobacco user Tobacco use disorder Open wound Open wound(s) (multiple) of unspecified site(s), without mention of complication Obesity (BMI 30-39.9) Type 2 diabetes mellitus without complication, with long-term current use of insulin ([facility]) Encounter for wellness examination- Primary Osteoporosis, unspecified osteoporosis type, unspecified pathological fracture presence ([facility]) Open wound of buttock, unspecified laterality, initial encounter Type 2 diabetes mellitus without complication, with long-term current use of insulin ([facility]) Obesity (BMI 30-39.9) Tobacco user Tobacco use disorder Anxiety and depression ([facility]) Type 2 diabetes mellitus with diabetic neuropathy, with long-term current use of insulin ([facility]) COPD mixed type ([facility]) Diabetic polyneuropathy associated with type 2 diabetes mellitus ([facility]) Gastroesophageal reflux disease, unspecified whether esophagitis present Mixed hyperlipidemia ([facility]) Mixed hyperlipidemia Primary hypertension ([facility]) Unspecified essential hypertension Edema of extremities Edema Lung nodule, multiple Lymphadenopathy, generalized Vitamin D deficiency Oxygen dependent Dependence on supplemental oxygen Community acquired pneumonia, unspecified laterality COPD mixed type ([facility])- Primary SANTO (obstructive sleep apnea) Obstructive sleep apnea (adult) (pediatric) Lung nodule, multiple Community acquired pneumonia, unspecified laterality Primary hypertension ([facility]) Unspecified essential hypertension Atrial fibrillation, unspecified type ([facility]) Type 2 diabetes mellitus without complication, with long-term current use of insulin [facility] Tobacco user Tobacco use disorder Needs flu shot Need for prophylactic vaccination and inoculation against influenza Right wrist pain- Primary Pain in joint, forearm Obesity (BMI 30-39.9) 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 ([facility])- Primary COPD with acute exacerbation ([facility])- Primary Oxygen dependent Dependence on supplemental oxygen COPD mixed type ([facility] Obesity (BMI 30-39.9) COVID- Primary Type 2 diabetes mellitus with diabetic polyneuropathy ([facility]) Type 2 diabetes mellitus with hyperglycemia ([facility]) 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 classified elsewhere ([facility]) retirement (current) use of insulin ([facility] COPD mixed type ([facility] Paroxysmal atrial fibrillation ([facility]) Atrial fibrillation Primary hypertension ([facility]) Unspecified essential hypertension Tobacco user Tobacco use disorder Diarrhea, unspecified type- Primary Type 2 diabetes mellitus with hyperglycemia, with long-term current use of insulin ([facility]) documented in this encounter [facility] HealthcareEvaluation note* Diagnosis Primary hypertension ([facility])- Primary Unspecified essential hypertension Type 2 diabetes mellitus with diabetic neuropathy, with long-term current use of insulin ([facility]) Gastroesophageal reflux disease, unspecified whether esophagitis present Vitamin D deficiency Type 2 diabetes mellitus with complication, without long-term current use of insulin ([facility]) Mixed hyperlipidemia ([facility]) Mixed hyperlipidemia Encounter for screening mammogram for malignant neoplasm of breast SANTO (obstructive sleep apnea) Obstructive sleep apnea (adult) (pediatric) COPD mixed type ([facility]) Anxiety and depression ([facility]) COVID Open wound Open wound(s) (multiple) of unspecified site(s), without mention of complication Morbid obesity with body mass index (BMI) of 40.0 to 49.9 ([facility]) COPD mixed type ([facility])- Primary Dysuria Atrial fibrillation, unspecified type ([facility]) Gastroesophageal reflux disease, unspecified whether esophagitis present Type 2 diabetes mellitus with complication, without long-term current use of insulin ([facility]) Obesity (BMI 30-39.9) Tobacco user Tobacco use disorder Anxiety and depression ([facility]) Dermatitis Contact dermatitis and other eczema, due to unspecified cause Anxiety and depression ([facility])- Primary Obesity (BMI 30-39.9) Type 2 diabetes mellitus with complication, without long-term current use of insulin ([facility]) Medical non-compliance Tobacco user Tobacco use disorder Type 2 diabetes mellitus with hyperglycemia ([facility])- Primary Primary hypertension ([facility]) Unspecified essential hypertension Edema of extremities Edema Type 2 diabetes mellitus without complication, with long-term current use of insulin ([facility]) Vitamin D deficiency Tobacco user Tobacco use disorder Dizziness and giddiness Atrial fibrillation, unspecified type ([facility]) COPD mixed type ([facility]) Open wound of buttock, unspecified laterality, initial encounter- Primary Type 2 diabetes mellitus without complication, with long-term current use of insulin ([facility]) Obesity (BMI 30-39.9) Dizziness and giddiness Viral upper respiratory tract infection- Primary Acute upper respiratory infections of unspecified site Tobacco user Tobacco use disorder Open wound Open wound(s) (multiple) of unspecified site(s), without mention of complication Obesity (BMI 30-39.9) Type 2 diabetes mellitus without complication, with long-term current use of insulin ([facility]) Encounter for wellness examination- Primary Osteoporosis, unspecified osteoporosis type, unspecified pathological fracture presence ([facility]) Open wound of buttock, unspecified laterality, initial encounter Type 2 diabetes mellitus without complication, with long-term current use of insulin ([facility]) Obesity (BMI 30-39.9) Tobacco user Tobacco use disorder Anxiety and depression ([facility]) Type 2 diabetes mellitus with diabetic neuropathy, with long-term current use of insulin ([facility]) COPD mixed type ([facility]) Diabetic polyneuropathy associated with type 2 diabetes mellitus ([facility]) Gastroesophageal reflux disease, unspecified whether esophagitis present Mixed hyperlipidemia ([facility]) Mixed hyperlipidemia Primary hypertension ([facility]) Unspecified essential hypertension Edema of extremities Edema Lung nodule, multiple Lymphadenopathy, generalized Vitamin D deficiency Oxygen dependent Dependence on supplemental oxygen Community acquired pneumonia, unspecified laterality COPD mixed type ([facility])- Primary SANTO (obstructive sleep apnea) Obstructive sleep apnea (adult) (pediatric) Lung nodule, multiple Community acquired pneumonia, unspecified laterality Primary hypertension ([facility]) Unspecified essential hypertension Atrial fibrillation, unspecified type ([facility]) Type 2 diabetes mellitus without complication, with long-term current use of insulin ([facility]) Tobacco user Tobacco use disorder Needs flu shot Need for prophylactic vaccination and inoculation against influenza Right wrist pain- Primary Pain in joint, forearm Obesity (BMI 30-39.9) 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 ([facility])- Primary COPD with acute exacerbation ([facility])- Primary Oxygen dependent Dependence on supplemental oxygen COPD mixed type ([facility]) Obesity (BMI 30-39.9) COVID- Primary Type 2 diabetes mellitus with diabetic polyneuropathy ([facility]) Type 2 diabetes mellitus with hyperglycemia ([facility]) 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 classified elsewhere ([facility]) retirement (current) use of insulin ([facility] COPD mixed type ([facility] Paroxysmal atrial fibrillation ([facility]) Atrial fibrillation Primary hypertension ([facility]) Unspecified essential hypertension Tobacco user Tobacco use disorder Diarrhea, unspecified type- Primary documented in this encounter [facility] HealthcareEvaluation note* Diagnosis Primary hypertension ([facility])- Primary Unspecified essential hypertension Type 2 diabetes mellitus with diabetic neuropathy, with long-term current use of insulin ([facility]) Gastroesophageal reflux disease, unspecified whether esophagitis present Vitamin D deficiency Type 2 diabetes mellitus with complication, without long-term current use of insulin ([facility]) Mixed hyperlipidemia ([facility]) Mixed hyperlipidemia Encounter for screening mammogram for malignant neoplasm of breast SANTO (obstructive sleep apnea) Obstructive sleep apnea (adult) (pediatric) COPD mixed type ([facility]) Anxiety and depression ([facility]) COVID Open wound Open wound(s) (multiple) of unspecified site(s), without mention of complication Morbid obesity with body mass index (BMI) of 40.0 to 49.9 ([facility]) COPD mixed type ([facility])- Primary Dysuria Atrial fibrillation, unspecified type ([facility]) Gastroesophageal reflux disease, unspecified whether esophagitis present Type 2 diabetes mellitus with complication, without long-term current use of insulin ([facility]) Obesity (BMI 30-39.9) Tobacco user Tobacco use disorder Anxiety and depression ([facility]) Dermatitis Contact dermatitis and other eczema, due to unspecified cause Anxiety and depression ([facility])- Primary Obesity (BMI 30-39.9) Type 2 diabetes mellitus with complication, without long-term current use of insulin ([facility]) Medical non-compliance Tobacco user Tobacco use disorder Type 2 diabetes mellitus with hyperglycemia ([facility])- Primary Primary hypertension ([facility]) Unspecified essential hypertension Edema of extremities Edema Type 2 diabetes mellitus without complication, with long-term current use of insulin ([facility]) Vitamin D deficiency Tobacco user Tobacco use disorder Dizziness and giddiness Atrial fibrillation, unspecified type ([facility]) COPD mixed type ([facility]) Open wound of buttock, unspecified laterality, initial encounter- Primary Type 2 diabetes mellitus without complication, with long-term current use of insulin ([facility]) Obesity (BMI 30-39.9) Dizziness and giddiness Viral upper respiratory tract infection- Primary Acute upper respiratory infections of unspecified site Tobacco user Tobacco use disorder Open wound Open wound(s) (multiple) of unspecified site(s), without mention of complication Obesity (BMI 30-39.9) Type 2 diabetes mellitus without complication, with long-term current use of insulin ([facility]) Encounter for wellness examination- Primary Osteoporosis, unspecified osteoporosis type, unspecified pathological fracture presence ([facility]) Open wound of buttock, unspecified laterality, initial encounter Type 2 diabetes mellitus without complication, with long-term current use of insulin ([facility]) Obesity (BMI 30-39.9) Tobacco user Tobacco use disorder Anxiety and depression ([facility]) Type 2 diabetes mellitus with diabetic neuropathy, with long-term current use of insulin ([facility]) COPD mixed type ([facility]) Diabetic polyneuropathy associated with type 2 diabetes mellitus ([facility]) Gastroesophageal reflux disease, unspecified whether esophagitis present Mixed hyperlipidemia ([facility]) Mixed hyperlipidemia Primary hypertension ([facility]) Unspecified essential hypertension Edema of extremities Edema Lung nodule, multiple Lymphadenopathy, generalized Vitamin D deficiency Oxygen dependent Dependence on supplemental oxygen Community acquired pneumonia, unspecified laterality COPD mixed type ([facility])- Primary SANTO (obstructive sleep apnea) Obstructive sleep apnea (adult) (pediatric) Lung nodule, multiple Community acquired pneumonia, unspecified laterality Primary hypertension ([facility]) Unspecified essential hypertension Atrial fibrillation, unspecified type ([facility]) Type 2 diabetes mellitus without complication, with long-term current use of insulin ([facility]) Tobacco user Tobacco use disorder Needs flu shot Need for prophylactic vaccination and inoculation against influenza Right wrist pain- Primary Pain in joint, forearm Obesity (BMI 30-39.9) 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 ([facility])- Primary COPD with acute exacerbation ([facility])- Primary Oxygen dependent Dependence on supplemental oxygen COPD mixed type ([facility]) Obesity (BMI 30-39.9) COVID- Primary Type 2 diabetes mellitus with diabetic polyneuropathy ([facility]) Type 2 diabetes mellitus with hyperglycemia ([facility]) 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 classified elsewhere ([facility]) retirement (current) use of insulin ([facility] COPD mixed type ([facility]) Paroxysmal atrial fibrillation ([facility]) Atrial fibrillation Primary hypertension ([facility]) Unspecified essential hypertension Tobacco user Tobacco use disorder Type 2 diabetes mellitus with diabetic neuropathy, with long-term current use of insulin ([facility]) documented in this encounter [facility] HealthcareEvaluation note* Diagnosis Primary hypertension ([facility])- Primary Unspecified essential hypertension Type 2 diabetes mellitus with diabetic neuropathy, with long-term current use of insulin ([facility]) Gastroesophageal reflux disease, unspecified whether esophagitis present Vitamin D deficiency Type 2 diabetes mellitus with complication, without long-term current use of insulin ([facility]) Mixed hyperlipidemia [facility] [facility]) Mixed hyperlipidemia Encounter for screening mammogram for malignant neoplasm of breast SANTO (obstructive sleep apnea) Obstructive sleep apnea (adult) (pediatric) COPD mixed type ([facility]) Anxiety and depression ([facility]) COVID Open wound Open wound(s) (multiple) of unspecified site(s), without mention of complication Morbid obesity with body mass index (BMI) of 40.0 to 49.9 ([facility]) COPD mixed type ([facility])- Primary Dysuria Atrial fibrillation, unspecified type ([facility]) Gastroesophageal reflux disease, unspecified whether esophagitis present Type 2 diabetes mellitus with complication, without long-term current use of insulin ([facility]) Obesity (BMI 30-39.9) Tobacco user Tobacco use disorder Anxiety and depression ([facility]) Dermatitis Contact dermatitis and other eczema, due to unspecified cause Type 2 diabetes mellitus with hyperglycemia ([facility])- Primary Primary hypertension ([facility]) Unspecified essential hypertension Edema of extremities Edema Type 2 diabetes mellitus without complication, with long-term current use of insulin ([facility]) Vitamin D deficiency Tobacco user Tobacco use disorder Dizziness and giddiness Atrial fibrillation, unspecified type ([facility]) COPD mixed type ([facility]) Open wound of buttock, unspecified laterality, initial encounter- Primary Type 2 diabetes mellitus without complication, with long-term current use of insulin ([facility]) Obesity (BMI 30-39.9) Dizziness and giddiness Viral upper respiratory tract infection- Primary Acute upper respiratory infections of unspecified site Tobacco user Tobacco use disorder Open wound Open wound(s) (multiple) of unspecified site(s), without mention of complication Obesity (BMI 30-39.9) Type 2 diabetes mellitus without complication, with long-term current use of insulin ([facility]) Encounter for wellness examination- Primary Osteoporosis, unspecified osteoporosis type, unspecified pathological fracture presence ([facility]) Open wound of buttock, unspecified laterality, initial encounter Type 2 diabetes mellitus without complication, with long-term current use of insulin ([facility]) Obesity (BMI 30-39.9) Tobacco user Tobacco use disorder Anxiety and depression ([facility]) Type 2 diabetes mellitus with diabetic neuropathy, with long-term current use of insulin ([facility]) COPD mixed type ([facility]) Diabetic polyneuropathy associated with type 2 diabetes mellitus ([facility]) Gastroesophageal reflux disease, unspecified whether esophagitis present Mixed hyperlipidemia ([facility]) Mixed hyperlipidemia Primary hypertension ([facility]) Unspecified essential hypertension Edema of extremities Edema Lung nodule, multiple Lymphadenopathy, generalized Vitamin D deficiency Oxygen dependent Dependence on supplemental oxygen Community acquired pneumonia, unspecified laterality COPD mixed type ([facility])- Primary SANTO (obstructive sleep apnea) Obstructive sleep apnea (adult) (pediatric) Lung nodule, multiple Community acquired pneumonia, unspecified laterality Primary hypertension ([facility]) Unspecified essential hypertension Atrial fibrillation, unspecified type ([facility]) Type 2 diabetes mellitus without complication, with long-term current use of insulin ([facility]) Tobacco user Tobacco use disorder Needs flu shot Need for prophylactic vaccination and inoculation against influenza Right wrist pain- Primary Pain in joint, forearm Obesity (BMI 30-39.9) 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 ([facility])- Primary COPD with acute exacerbation ([facility])- Primary Oxygen dependent Dependence on supplemental oxygen COPD mixed type ([facility]) Obesity (BMI 30-39.9) COVID- Primary Type 2 diabetes mellitus with diabetic polyneuropathy ([facility]) Type 2 diabetes mellitus with hyperglycemia ([facility]) 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 classified elsewhere ([facility]) retirement (current) use of insulin ([facility] COPD mixed type ([facility] Paroxysmal atrial fibrillation ([facility] Atrial fibrillation Primary hypertension ([facility]) Unspecified essential hypertension Tobacco user Tobacco use disorder JORDAN (generalized anxiety disorder) ([facility])- Primary Generalized anxiety disorder SANTO (obstructive sleep apnea) Obstructive sleep apnea (adult) (pediatric) Type 2 diabetes mellitus with diabetic polyneuropathy, with long-term current use of insulin ([facility]) COPD mixed type ([facility] Oxygen dependent Dependence on supplemental oxygen Paroxysmal atrial fibrillation ([facility]) Atrial fibrillation Primary hypertension ([facility]) Unspecified essential hypertension Gastroesophageal reflux disease, unspecified whether esophagitis present Obesity (BMI 30-39.9) Type 2 diabetes mellitus without complication, with long-term current use of insulin ([facility] Anxiety and depression ([facility]) retirement (current) use of insulin ([facility] Medical non-compliance Mild episode of recurrent major depressive disorder (HCC) ([facility]) Cigarette nicotine dependence without complication Encounter for screening mammogram for malignant neoplasm of breast Diabetic polyneuropathy associated with type 2 diabetes mellitus ([facility]) Mixed hyperlipidemia ([facility]) Mixed hyperlipidemia Edema of extremities Edema documented in this encounter [facility] HealthcareEvaluation note* Diagnosis Primary hypertension ([facility])- Primary Unspecified essential hypertension Type 2 diabetes mellitus with diabetic neuropathy, with long-term current use of insulin ([facility]) Gastroesophageal reflux disease, unspecified whether esophagitis present Vitamin D deficiency Type 2 diabetes mellitus with complication, without long-term current use of insulin ([facility] Mixed hyperlipidemia ([facility]) Mixed hyperlipidemia Encounter for screening mammogram for malignant neoplasm of breast SANTO (obstructive sleep apnea) Obstructive sleep apnea (adult) (pediatric) COPD mixed type ([facility]) Anxiety and depression ([facility]) COVID Open wound Open wound(s) (multiple) of unspecified site(s), without mention of complication Morbid obesity with body mass index (BMI) of 40.0 to 49.9 ([facility]) COPD mixed type ([facility])- Primary Dysuria Atrial fibrillation, unspecified type ([facility]) Gastroesophageal reflux disease, unspecified whether esophagitis present Type 2 diabetes mellitus with complication, without long-term current use of insulin ([facility]) Obesity (BMI 30-39.9) Tobacco user Tobacco use disorder Anxiety and depression ([facility]) Dermatitis Contact dermatitis and other eczema, due to unspecified cause Type 2 diabetes mellitus with hyperglycemia ([facility])- Primary Primary hypertension ([facility]) Unspecified essential hypertension Edema of extremities Edema Type 2 diabetes mellitus without complication, with long-term current use of insulin ([facility]) Vitamin D deficiency Tobacco user Tobacco use disorder Dizziness and giddiness Atrial fibrillation, unspecified type ([facility]) COPD mixed type ([facility]) Open wound of buttock, unspecified laterality, initial encounter- Primary Type 2 diabetes mellitus without complication, with long-term current use of insulin ([facility]) Obesity (BMI 30-39.9) Dizziness and giddiness Viral upper respiratory tract infection- Primary Acute upper respiratory infections of unspecified site Tobacco user Tobacco use disorder Open wound Open wound(s) (multiple) of unspecified site(s), without mention of complication Obesity (BMI 30-39.9) Type 2 diabetes mellitus without complication, with long-term current use of insulin ([facility]) Encounter for wellness examination- Primary Osteoporosis, unspecified osteoporosis type, unspecified pathological fracture presence ([facility]) Open wound of buttock, unspecified laterality, initial encounter Type 2 diabetes mellitus without complication, with long-term current use of insulin ([facility]) Obesity (BMI 30-39.9) Tobacco user Tobacco use disorder Anxiety and depression ([facility]) Type 2 diabetes mellitus with diabetic neuropathy, with long-term current use of insulin ([facility]) COPD mixed type ([facility]) Diabetic polyneuropathy associated with type 2 diabetes mellitus ([facility]) Gastroesophageal reflux disease, unspecified whether esophagitis present Mixed hyperlipidemia ([facility]) Mixed hyperlipidemia Primary hypertension ([facility]) Unspecified essential hypertension Edema of extremities Edema Lung nodule, multiple Lymphadenopathy, generalized Vitamin D deficiency Oxygen dependent Dependence on supplemental oxygen Community acquired pneumonia, unspecified laterality COPD mixed type ([facility])- Primary SANTO (obstructive sleep apnea) Obstructive sleep apnea (adult) (pediatric) Lung nodule, multiple Community acquired pneumonia, unspecified laterality Primary hypertension ([facility]) Unspecified essential hypertension Atrial fibrillation, unspecified type ([facility]) Type 2 diabetes mellitus without complication, with long-term current use of insulin ([facility]) Tobacco user Tobacco use disorder Needs flu shot Need for prophylactic vaccination and inoculation against influenza Right wrist pain- Primary Pain in joint, forearm Obesity (BMI 30-39.9) 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 ([facility])- Primary COPD with acute exacerbation ([facility])- Primary Oxygen dependent Dependence on supplemental oxygen COPD mixed type ([facility]) Obesity (BMI 30-39.9) COVID- Primary Type 2 diabetes mellitus with diabetic polyneuropathy ([facility]) Type 2 diabetes mellitus with hyperglycemia ([facility]) 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 classified elsewhere ([facility]) retirement (current) use of insulin ([facility] COPD mixed type ([facility] Paroxysmal atrial fibrillation ([facility] Atrial fibrillation Primary hypertension ([facility]) Unspecified essential hypertension Tobacco user Tobacco use disorder JORDAN (generalized anxiety disorder) ([facility])- Primary Generalized anxiety disorder SANTO (obstructive sleep apnea) Obstructive sleep apnea (adult) (pediatric) Type 2 diabetes mellitus with diabetic polyneuropathy, with long-term current use of insulin ([facility]) COPD mixed type ([facility] Oxygen dependent Dependence on supplemental oxygen Paroxysmal atrial fibrillation ([facility]) Atrial fibrillation Primary hypertension ([facility]) Unspecified essential hypertension Gastroesophageal reflux disease, unspecified whether esophagitis present Obesity (BMI 30-39.9) Type 2 diabetes mellitus without complication, with long-term current use of insulin ([facility]) Anxiety and depression ([facility]) 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 ([facility]) Medical non-compliance Mild episode of recurrent major depressive disorder (HCC) ([facility]) Cigarette nicotine dependence without complication Encounter for screening mammogram for malignant neoplasm of breast Diabetic polyneuropathy associated with type 2 diabetes mellitus ([facility]) Mixed hyperlipidemia ([facility]) Mixed hyperlipidemia Edema of extremities Edema documented in this encounter [facility] HealthcareEvaluation note* Diagnosis Primary hypertension ([facility])- Primary Unspecified essential hypertension Type 2 diabetes mellitus with diabetic neuropathy, with long-term current use of insulin ([facility]) Gastroesophageal reflux disease, unspecified whether esophagitis present Vitamin D deficiency Type 2 diabetes mellitus with complication, without long-term current use of insulin ([facility] Mixed hyperlipidemia ([facility]) Mixed hyperlipidemia Encounter for screening mammogram for malignant neoplasm of breast SANTO (obstructive sleep apnea) Obstructive sleep apnea (adult) (pediatric) COPD mixed type ([facility]) Anxiety and depression ([facility]) COVID Open wound Open wound(s) (multiple) of unspecified site(s), without mention of complication Morbid obesity with body mass index (BMI) of 40.0 to 49.9 ([facility]) COPD mixed type ([facility])- Primary Dysuria Atrial fibrillation, unspecified type ([facility]) Gastroesophageal reflux disease, unspecified whether esophagitis present Type 2 diabetes mellitus with complication, without long-term current use of insulin ([facility]) Obesity (BMI 30-39.9) Tobacco user Tobacco use disorder Anxiety and depression ([facility]) Dermatitis Contact dermatitis and other eczema, due to unspecified cause Type 2 diabetes mellitus with hyperglycemia ([facility] Primary Primary hypertension ([facility] Unspecified essential hypertension Edema of extremities Edema Type 2 diabetes mellitus without complication, with long-term current use of insulin ([facility]) Vitamin D deficiency Tobacco user Tobacco use disorder Dizziness and giddiness Atrial fibrillation, unspecified type ([facility]) COPD mixed type ([facility]) Open wound of buttock, unspecified laterality, initial encounter- Primary Type 2 diabetes mellitus without complication, with long-term current use of insulin ([facility]) Obesity (BMI 30-39.9) Dizziness and giddiness Viral upper respiratory tract infection- Primary Acute upper respiratory infections of unspecified site Tobacco user Tobacco use disorder Open wound Open wound(s) (multiple) of unspecified site(s), without mention of complication Obesity (BMI 30-39.9) Type 2 diabetes mellitus without complication, with long-term current use of insulin ([facility]) Encounter for wellness examination- Primary Osteoporosis, unspecified osteoporosis type, unspecified pathological fracture presence ([facility]) Open wound of buttock, unspecified laterality, initial encounter Type 2 diabetes mellitus without complication, with long-term current use of insulin ([facility]) Obesity (BMI 30-39.9) Tobacco user Tobacco use disorder Anxiety and depression ([facility]) Type 2 diabetes mellitus with diabetic neuropathy, with long-term current use of insulin ([facility]) COPD mixed type ([facility]) Diabetic polyneuropathy associated with type 2 diabetes mellitus ([facility]) Gastroesophageal reflux disease, unspecified whether esophagitis present Mixed hyperlipidemia ([facility]) Mixed hyperlipidemia Primary hypertension ([facility]) Unspecified essential hypertension Edema of extremities Edema Lung nodule, multiple Lymphadenopathy, generalized Vitamin D deficiency Oxygen dependent Dependence on supplemental oxygen Community acquired pneumonia, unspecified laterality COPD mixed type ([facility])- Primary SANTO (obstructive sleep apnea) Obstructive sleep apnea (adult) (pediatric) Lung nodule, multiple Community acquired pneumonia, unspecified laterality Primary hypertension ([facility]) Unspecified essential hypertension Atrial fibrillation, unspecified type ([facility]/HCC) Type 2 diabetes mellitus without complication, with long-term current use of insulin ([facility]/HCC) Tobacco user Tobacco use disorder Needs flu shot Need for prophylactic vaccination and inoculation against influenza Right wrist pain- Primary Pain in joint, forearm Obesity (BMI 30-39.9) 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 (CMS/HCC)- Primary COPD with acute exacerbation (CMS/[facility])- Primary Oxygen dependent Dependence on supplemental oxygen COPD mixed type (CMS/HCC) Obesity (BMI 30-39.9) COVID- Primary Type 2 diabetes mellitus with diabetic polyneuropathy ([facility]) Type 2 diabetes mellitus with hyperglycemia ([facility]) 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 classified elsewhere ([facility]) 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 ([facility]) COPD mixed type ([facility]/HCC[facility] Paroxysmal atrial fibrillation ([facility]/HCC) Atrial fibrillation Primary hypertension ([facility]) Unspecified essential hypertension Tobacco user Tobacco use disorder JORDAN (generalized anxiety disorder) ([facility])- Primary Generalized anxiety disorder SANTO (obstructive sleep apnea) Obstructive sleep apnea (adult) (pediatric) Type 2 diabetes mellitus with diabetic polyneuropathy, with long-term current use of insulin ([facility]) COPD mixed type ([facility]/HCC) Oxygen dependent Dependence on supplemental oxygen Paroxysmal atrial fibrillation ([facility]) Atrial fibrillation Primary hypertension ([facility]) Unspecified essential hypertension Gastroesophageal reflux disease, unspecified whether esophagitis present Obesity (BMI 30-39.9) Type 2 diabetes mellitus without complication, with long-term current use of insulin ([facility]) Anxiety and depression ([facility]) retirement (current) use of insulin ([facility]) Medical non-compliance Mild episode of recurrent major depressive disorder (HCC) ([facility]) Cigarette nicotine dependence without complication Encounter for screening mammogram for malignant neoplasm of breast Diabetic polyneuropathy associated with type 2 diabetes mellitus ([facility]/HCC) Mixed hyperlipidemia ([facility]) Mixed hyperlipidemia Edema of extremities Edema Type 2 diabetes mellitus with hyperglycemia, with long-term current use of insulin ([facility])- Primary Type 2 diabetes mellitus with hyperglycemia, with long-term current use of insulin ([facility]/HCC) documented in this encounter [facility] HealthcareEvaluation note* Diagnosis Primary hypertension ([facility]/HCC)- Primary Unspecified essential hypertension Type 2 diabetes mellitus with diabetic neuropathy, with long-term current use of insulin ([facility]) Gastroesophageal reflux disease, unspecified whether esophagitis present Vitamin D deficiency Type 2 diabetes mellitus with complication, without long-term current use of insulin ([facility] Mixed hyperlipidemia ([facility]) Mixed hyperlipidemia Encounter for screening mammogram for malignant neoplasm of breast SANTO (obstructive sleep apnea) Obstructive sleep apnea (adult) (pediatric) COPD mixed type ([facility]) Anxiety and depression ([facility]) COVID Open wound Open wound(s) (multiple) of unspecified site(s), without mention of complication Morbid obesity with body mass index (BMI) of 40.0 to 49.9 ([facility]) COPD mixed type ([facility])- Primary Dysuria Atrial fibrillation, unspecified type ([facility]) Gastroesophageal reflux disease, unspecified whether esophagitis present Type 2 diabetes mellitus with complication, without long-term current use of insulin ([facility]) Obesity (BMI 30-39.9) Tobacco user Tobacco use disorder Anxiety and depression ([facility]) Dermatitis Contact dermatitis and other eczema, due to unspecified cause Type 2 diabetes mellitus with hyperglycemia ([facility])- Primary Primary hypertension ([facility]) Unspecified essential hypertension Edema of extremities Edema Type 2 diabetes mellitus without complication, with long-term current use of insulin ([facility]) Vitamin D deficiency Tobacco user Tobacco use disorder Dizziness and giddiness Atrial fibrillation, unspecified type ([facility]) COPD mixed type ([facility]) Open wound of buttock, unspecified laterality, initial encounter- Primary Type 2 diabetes mellitus without complication, with long-term current use of insulin ([facility]) Obesity (BMI 30-39.9) Dizziness and giddiness Viral upper respiratory tract infection- Primary Acute upper respiratory infections of unspecified site Tobacco user Tobacco use disorder Open wound Open wound(s) (multiple) of unspecified site(s), without mention of complication Obesity (BMI 30-39.9) Type 2 diabetes mellitus without complication, with long-term current use of insulin ([facility]) Encounter for wellness examination- Primary Osteoporosis, unspecified osteoporosis type, unspecified pathological fracture presence ([facility]) Open wound of buttock, unspecified laterality, initial encounter Type 2 diabetes mellitus without complication, with long-term current use of insulin ([facility]) Obesity (BMI 30-39.9) Tobacco user Tobacco use disorder Anxiety and depression ([facility]) Type 2 diabetes mellitus with diabetic neuropathy, with long-term current use of insulin ([facility]) COPD mixed type ([facility]) Diabetic polyneuropathy associated with type 2 diabetes mellitus ([facility]) Gastroesophageal reflux disease, unspecified whether esophagitis present Mixed hyperlipidemia ([facility]) Mixed hyperlipidemia Primary hypertension ([facility]) Unspecified essential hypertension Edema of extremities Edema Lung nodule, multiple Lymphadenopathy, generalized Vitamin D deficiency Oxygen dependent Dependence on supplemental oxygen Community acquired pneumonia, unspecified laterality COPD mixed type ([facility])- Primary SANTO (obstructive sleep apnea) Obstructive sleep apnea (adult) (pediatric) Lung nodule, multiple Community acquired pneumonia, unspecified laterality Primary hypertension ([facility]) Unspecified essential hypertension Atrial fibrillation, unspecified type ([facility]) Type 2 diabetes mellitus without complication, with long-term current use of insulin ([facility]) Tobacco user Tobacco use disorder Needs flu shot Need for prophylactic vaccination and inoculation against influenza Right wrist pain- Primary Pain in joint, forearm Obesity (BMI 30-39.9) 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 ([facility])- Primary COPD with acute exacerbation ([facility])- Primary Oxygen dependent Dependence on supplemental oxygen COPD mixed type ([facility]) Obesity (BMI 30-39.9) COVID- Primary Type 2 diabetes mellitus with diabetic polyneuropathy ([facility]) Type 2 diabetes mellitus with hyperglycemia ([facility]) 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 classified elsewhere ([facility]) 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 ([facility] COPD mixed type ([facility] Paroxysmal atrial fibrillation ([facility]) Atrial fibrillation Primary hypertension ([facility]) Unspecified essential hypertension Tobacco user Tobacco use disorder JORDAN (generalized anxiety disorder) ([facility])- Primary Generalized anxiety disorder SANTO (obstructive sleep apnea) Obstructive sleep apnea (adult) (pediatric) Type 2 diabetes mellitus with diabetic polyneuropathy, with long-term current use of insulin ([facility]) COPD mixed type ([facility]) Oxygen dependent Dependence on supplemental oxygen Paroxysmal atrial fibrillation ([facility]) Atrial fibrillation Primary hypertension ([facility]) Unspecified essential hypertension Gastroesophageal reflux disease, unspecified whether esophagitis present Obesity (BMI 30-39.9) Type 2 diabetes mellitus without complication, with long-term current use of insulin ([facility]) Anxiety and depression ([facility]) 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 ([facility]) Medical non-compliance Mild episode of recurrent major depressive disorder (HCC) ([facility]) Cigarette nicotine dependence without complication Encounter for screening mammogram for malignant neoplasm of breast Diabetic polyneuropathy associated with type 2 diabetes mellitus ([facility]) Mixed hyperlipidemia ([facility]) Mixed hyperlipidemia Edema of extremities Edema Hypokalemia- Primary Hypopotassemia COPD mixed type ([facility]) Osteoporosis, unspecified osteoporosis type, unspecified pathological fracture presence ([facility]) Type 2 diabetes mellitus with hyperglycemia, with long-term current use of insulin ([facility]) documented in this encounter [facility] HealthcareEvaluation note* Diagnosis Primary hypertension ([facility])- Primary Unspecified essential hypertension Type 2 diabetes mellitus with diabetic neuropathy, with long-term current use of insulin ([facility]) Gastroesophageal reflux disease, unspecified whether esophagitis present Vitamin D deficiency Type 2 diabetes mellitus with complication, without long-term current use of insulin ([facility]) Mixed hyperlipidemia ([facility]) Mixed hyperlipidemia Encounter for screening mammogram for malignant neoplasm of breast SANTO (obstructive sleep apnea) Obstructive sleep apnea (adult) (pediatric) COPD mixed type ([facility]) Anxiety and depression ([facility]) COVID Open wound Open wound(s) (multiple) of unspecified site(s), without mention of complication Morbid obesity with body mass index (BMI) of 40.0 to 49.9 ([facility]) COPD mixed type ([facility]/HCC)- Primary Dysuria Atrial fibrillation, unspecified type ([facility]) Gastroesophageal reflux disease, unspecified whether esophagitis present Type 2 diabetes mellitus with complication, without long-term current use of insulin ([facility]) Obesity (BMI 30-39.9) Tobacco user Tobacco use disorder Anxiety and depression ([facility]) Dermatitis Contact dermatitis and other eczema, due to unspecified cause Type 2 diabetes mellitus with hyperglycemia ([facility])- Primary Primary hypertension ([facility]) Unspecified essential hypertension Edema of extremities Edema Type 2 diabetes mellitus without complication, with long-term current use of insulin Vitamin D deficiency Tobacco user Tobacco use disorder Dizziness and giddiness Atrial fibrillation, unspecified type (CMS/HCC) COPD mixed type ([facility]/HCC) Open wound of buttock, unspecified laterality, initial [...] unspecified osteoporosis type, unspecified pathological fracture presence ([facility]) Open wound of buttock, unspecified laterality, initial encounter Type 2 diabetes mellitus without complication, with long-term current use of insulin Obesity (BMI 30-39.9) Tobacco user Tobacco use disorder Anxiety and depression ([facility]) Type 2 diabetes mellitus with diabetic neuropathy, with long-term current use of insulin ([facility]) COPD mixed type ([facility]) Diabetic polyneuropathy associated with type 2 diabetes mellitus ([facility]) Gastroesophageal reflux disease, unspecified whether esophagitis present Mixed hyperlipidemia ([facility]) Mixed hyperlipidemia Primary hypertension ([facility]) Unspecified essential hypertension Edema of extremities Edema Lung nodule, multiple Lymphadenopathy, generalized Vitamin D deficiency Oxygen dependent Dependence on supplemental oxygen Community acquired pneumonia, unspecified laterality COPD mixed type ([facility])- Primary SANTO (obstructive sleep apnea) Obstructive sleep apnea (adult) (pediatric) Lung nodule, multiple Community acquired pneumonia, unspecified laterality Primary hypertension ([facility]) Unspecified essential hypertension Atrial fibrillation, unspecified type ([facility]) Type 2 diabetes mellitus without complication, with long-term current use of insulin Tobacco user Tobacco use disorder Needs flu shot Need for prophylactic vaccination and inoculation against influenza Right wrist pain- Primary Pain in joint, forearm Obesity (BMI 30-39.9) 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 ([facility])- Primary COPD with acute exacerbation ([facility])- Primary Oxygen dependent Dependence on supplemental oxygen COPD mixed type ([facility]) Obesity (BMI 30-39.9) COVID- Primary Type 2 diabetes mellitus with diabetic polyneuropathy ([facility]) Type 2 diabetes mellitus with hyperglycemia ([facility]) 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 classified elsewhere ([facility]) 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 ([facility] COPD mixed type ([facility] Paroxysmal atrial fibrillation ([facility]) Atrial fibrillation Primary hypertension ([facility]) Unspecified essential hypertension Tobacco user Tobacco use disorder JORDAN (generalized anxiety disorder) ([facility])- Primary Generalized anxiety disorder SANTO (obstructive [...] current use of insulin Anxiety and depression ([facility]/HCC) retirement (current) use of insulin ([facility]) Medical non-compliance Mild episode of recurrent major depressive disorder (HCC) ([facility]) Cigarette nicotine dependence without complication Encounter for screening mammogram for malignant neoplasm of breast Diabetic polyneuropathy associated with type 2 diabetes mellitus ([facility]) Mixed hyperlipidemia ([facility] Mixed hyperlipidemia Edema of extremities Edema COPD mixed type ([facility]/HCC) documented in this encounter [facility] HealthcareEvaluation note* Diagnosis Primary hypertension ([facility])- Primary Unspecified essential hypertension Type 2 diabetes mellitus with diabetic neuropathy, with long-term current use of insulin ([facility]) Gastroesophageal reflux disease, unspecified whether esophagitis present Vitamin D deficiency Type 2 diabetes mellitus with complication, without long-term current use of insulin ([facility]) Mixed hyperlipidemia ([facility]) Mixed hyperlipidemia Encounter for screening mammogram for malignant neoplasm of breast SANTO (obstructive sleep apnea) Obstructive sleep apnea (adult) (pediatric) COPD mixed type ([facility]/HCC) Anxiety and depression ([facility]/HCC) COVID Open wound Open wound(s) (multiple) of unspecified site(s), without mention of complication Morbid obesity with body mass index (BMI) of 40.0 to 49.9 ([facility]) COPD mixed type (CMS/HCC)- Primary Dysuria Atrial fibrillation, unspecified type ([facility]) Gastroesophageal reflux disease, unspecified whether esophagitis present Type 2 diabetes mellitus with complication, without long-term current use of insulin ([facility]) Obesity (BMI 30-39.9) Tobacco user Tobacco use disorder Anxiety and depression ([facility]/HCC) Dermatitis Contact dermatitis and other eczema, due to unspecified cause Type 2 diabetes mellitus with hyperglycemia ([facility])- Primary Primary hypertension ([facility]) Unspecified essential hypertension Edema of extremities [...] unspecified osteoporosis type, unspecified pathological fracture presence ([facility]) Open wound of buttock, unspecified laterality, initial encounter Type 2 diabetes mellitus without complication, with long-term current use of insulin Obesity (BMI 30-39.9) Tobacco user Tobacco use disorder Anxiety and depression ([facility]) Type 2 diabetes mellitus with diabetic neuropathy, with long-term current use of insulin ([facility]) COPD mixed type ([facility]) Diabetic polyneuropathy associated with type 2 diabetes mellitus ([facility]) Gastroesophageal reflux disease, unspecified whether esophagitis present Mixed hyperlipidemia ([facility]) Mixed hyperlipidemia Primary hypertension ([facility]) Unspecified essential hypertension Edema of extremities Edema Lung nodule, multiple Lymphadenopathy, generalized Vitamin D deficiency Oxygen dependent Dependence on supplemental oxygen Community acquired pneumonia, unspecified laterality COPD mixed type ([facility])- Primary SANTO (obstructive sleep apnea) Obstructive sleep apnea (adult) (pediatric) Lung nodule, multiple Community acquired pneumonia, unspecified laterality Primary hypertension ([facility]) Unspecified essential hypertension Atrial fibrillation, unspecified type ([facility]) Type 2 diabetes mellitus without complication, with long-term current use of insulin Tobacco user Tobacco use disorder Needs flu shot Need for prophylactic vaccination and inoculation against influenza Right wrist pain- Primary Pain in joint, forearm Obesity (BMI 30-39.9) 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 ([facility])- Primary COPD with acute exacerbation ([facility])- Primary Oxygen dependent Dependence on supplemental oxygen COPD mixed type ([facility]/HCC) Obesity (BMI 30-39.9) COVID- Primary Type 2 diabetes mellitus with diabetic polyneuropathy ([facility] [facility]) Type 2 diabetes mellitus with hyperglycemia ([facility]) 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 classified elsewhere ([facility]) 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 ([facility] COPD mixed type ([facility] Paroxysmal atrial fibrillation ([facility] Atrial fibrillation Primary hypertension ([facility]) Unspecified essential hypertension Tobacco user Tobacco use disorder JORDAN (generalized anxiety disorder) ([facility])- Primary Generalized anxiety disorder SANTO (obstructive sleep apnea) Obstructive sleep apnea (adult) (pediatric) Type 2 diabetes mellitus with diabetic polyneuropathy, with long-term current use of insulin ([facility]) COPD mixed type ([facility] Oxygen dependent Dependence on supplemental oxygen Paroxysmal atrial fibrillation ([facility] Atrial fibrillation Primary hypertension ([facility]) Unspecified essential hypertension Gastroesophageal reflux disease, unspecified whether esophagitis present Obesity (BMI 30-39.9) Type 2 diabetes mellitus without complication, with long-term current use of insulin Anxiety and depression ([facility]) 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 ([facility]) Medical non-compliance Mild episode of recurrent major depressive disorder (HCC) ([facility]) Cigarette nicotine dependence without complication Encounter for screening mammogram for malignant neoplasm of breast Diabetic polyneuropathy associated with type 2 diabetes mellitus ([facility] Mixed hyperlipidemia ([facility] Mixed hyperlipidemia Edema of extremities Edema JORDAN (generalized anxiety disorder) ([facility]) Generalized anxiety disorder Mild episode of recurrent major depressive disorder (HCC) ([facility]) documented in this encounter [facility] HealthcareEvaluation note* Diagnosis Primary hypertension ([facility])- Primary Unspecified essential hypertension Type 2 diabetes mellitus with diabetic neuropathy, with long-term current use of insulin ([facility]) Gastroesophageal reflux disease, unspecified whether esophagitis present Vitamin D deficiency Type 2 diabetes mellitus with complication, without long-term current use of insulin ([facility] Mixed hyperlipidemia ([facility]) Mixed hyperlipidemia Encounter for screening mammogram for malignant neoplasm of breast SANTO (obstructive sleep apnea) Obstructive sleep apnea (adult) (pediatric) COPD mixed type ([facility]) Anxiety and depression ([facility]) COVID Open wound Open wound(s) (multiple) of unspecified site(s), without mention of complication Morbid obesity with body mass index (BMI) of 40.0 to 49.9 ([facility]) COPD mixed type ([facility])- Primary Dysuria Atrial fibrillation, unspecified type ([facility]) Gastroesophageal reflux disease, unspecified whether esophagitis present Type 2 diabetes mellitus with complication, without long-term current use of insulin ([facility]) Obesity (BMI 30-39.9) Tobacco user Tobacco use disorder Anxiety and depression ([facility]) Dermatitis Contact dermatitis and other eczema, due to unspecified cause Type 2 diabetes mellitus with hyperglycemia ([facility])- Primary Primary hypertension ([facility]) Unspecified essential hypertension Edema of extremities Edema Type 2 diabetes mellitus without complication, with long-term current use of insulin Vitamin D deficiency Tobacco user Tobacco use disorder Dizziness and giddiness Atrial fibrillation, unspecified type ([facility]) COPD mixed type ([facility]) Open wound of buttock, unspecified laterality, [...] unspecified osteoporosis type, unspecified pathological fracture presence ([facility]) Open wound of buttock, unspecified laterality, initial encounter Type 2 diabetes mellitus without complication, with long-term current use of insulin Obesity (BMI 30-39.9) Tobacco user Tobacco use disorder Anxiety and depression ([facility]) Type 2 diabetes mellitus with diabetic neuropathy, with long-term current use of insulin ([facility]) COPD mixed type ([facility]) Diabetic polyneuropathy associated with type 2 diabetes mellitus ([facility]) Gastroesophageal reflux disease, unspecified whether esophagitis present Mixed hyperlipidemia ([facility]) Mixed hyperlipidemia Primary hypertension ([facility]) Unspecified essential hypertension Edema of extremities Edema Lung nodule, multiple Lymphadenopathy, generalized Vitamin D deficiency Oxygen dependent Dependence on supplemental oxygen Community acquired pneumonia, unspecified laterality COPD mixed type ([facility])- Primary SANTO (obstructive sleep apnea) Obstructive sleep apnea (adult) (pediatric) Lung nodule, multiple Community acquired pneumonia, unspecified laterality Primary hypertension ([facility]) Unspecified essential hypertension Atrial fibrillation, unspecified type ([facility]) Type 2 diabetes mellitus without complication, with long-term current use of insulin Tobacco user Tobacco use disorder Needs flu shot Need for prophylactic vaccination and inoculation against influenza Right wrist pain- Primary Pain in joint, forearm Obesity (BMI 30-39.9) 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 ([facility])- Primary COPD with acute exacerbation ([facility])- Primary Oxygen dependent Dependence on supplemental oxygen COPD mixed type ([facility]) Obesity (BMI 30-39.9) COVID- Primary Type 2 diabetes mellitus with diabetic polyneuropathy ([facility]) Type 2 diabetes mellitus with hyperglycemia ([facility]) 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 classified elsewhere ([facility]) 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 ([facility]) COPD mixed type ([facility]) Paroxysmal atrial fibrillation ([facility]) Atrial fibrillation Primary hypertension ([facility] Unspecified essential hypertension Tobacco user Tobacco use disorder JORDAN (generalized anxiety disorder) ([facility])- Primary Generalized anxiety disorder SANTO (obstructive sleep apnea) Obstructive sleep apnea (adult) (pediatric) Type 2 diabetes mellitus with diabetic polyneuropathy, with long-term current use of insulin ([facility]) COPD mixed type ([facility] Oxygen dependent Dependence on supplemental oxygen Paroxysmal atrial fibrillation ([facility]) Atrial fibrillation Primary hypertension ([facility]) Unspecified essential hypertension Gastroesophageal reflux disease, unspecified whether esophagitis present Obesity (BMI 30-39.9) Type 2 diabetes mellitus without complication, with long-term current use of insulin Anxiety and depression ([facility]) retirement (current) use of insulin ([facility]) Medical non-compliance Mild episode of recurrent major depressive disorder (HCC) ([facility]) Cigarette nicotine dependence without complication Encounter for screening mammogram for malignant neoplasm of breast Diabetic polyneuropathy associated with type 2 diabetes mellitus ([facility]) Mixed hyperlipidemia ([facility]) Mixed hyperlipidemia Edema of extremities Edema Abscess of left groin- Primary documented in this encounter [facility] HealthcareEvaluation note* Diagnosis Primary hypertension ([facility])- Primary Unspecified essential hypertension Type 2 diabetes mellitus with diabetic neuropathy, with long-term current use of insulin ([facility]) Gastroesophageal reflux disease, unspecified whether esophagitis present Vitamin D deficiency Type 2 diabetes mellitus with complication, without long-term current use of insulin ([facility] Mixed hyperlipidemia ([facility]) Mixed hyperlipidemia Encounter for screening mammogram for malignant neoplasm of breast SANTO (obstructive sleep apnea) Obstructive sleep apnea (adult) (pediatric) COPD mixed type ([facility]) Anxiety and depression ([facility]) COVID Open wound Open wound(s) (multiple) of unspecified site(s), without mention of complication Morbid obesity with body mass index (BMI) of 40.0 to 49.9 ([facility] COPD mixed type ([facility])- Primary Dysuria Atrial fibrillation, unspecified type ([facility]) Gastroesophageal reflux disease, unspecified whether esophagitis present Type 2 diabetes mellitus with complication, without long-term current use of insulin ([facility]) Obesity (BMI 30-39.9) Tobacco user Tobacco use disorder Anxiety and depression ([facility]) Dermatitis Contact dermatitis and other eczema, due to unspecified cause Type 2 diabetes mellitus with hyperglycemia ([facility])- Primary Primary hypertension ([facility]) Unspecified essential hypertension Edema of extremities Edema Type 2 diabetes mellitus without complication, with long-term current use of insulin Vitamin D deficiency Tobacco user Tobacco use disorder Dizziness and giddiness Atrial fibrillation, unspecified type ([facility]) COPD mixed type ([facility]) Open wound of buttock, unspecified laterality, [...] unspecified osteoporosis type, unspecified pathological fracture presence ([facility]) Open wound of buttock, unspecified laterality, initial encounter Type 2 diabetes mellitus without complication, with long-term current use of insulin Obesity (BMI 30-39.9) Tobacco user Tobacco use disorder Anxiety and depression ([facility]) Type 2 diabetes mellitus with diabetic neuropathy, with long-term current use of insulin ([facility]) COPD mixed type ([facility]) Diabetic polyneuropathy associated with type 2 diabetes mellitus ([facility]) Gastroesophageal reflux disease, unspecified whether esophagitis present Mixed hyperlipidemia ([facility]) Mixed hyperlipidemia Primary hypertension ([facility]) Unspecified essential hypertension Edema of extremities Edema Lung nodule, multiple Lymphadenopathy, generalized Vitamin D deficiency Oxygen dependent Dependence on supplemental oxygen Community acquired pneumonia, unspecified laterality COPD mixed type ([facility])- Primary SANTO (obstructive sleep apnea) Obstructive sleep apnea (adult) (pediatric) Lung nodule, multiple Community acquired pneumonia, unspecified laterality Primary hypertension ([facility]) Unspecified essential hypertension Atrial fibrillation, unspecified type ([facility]) Type 2 diabetes mellitus without complication, with long-term current use of insulin Tobacco user Tobacco use disorder Needs flu shot Need for prophylactic vaccination and inoculation against influenza Right wrist pain- Primary Pain in joint, forearm Obesity (BMI 30-39.9) 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 ([facility])- Primary COPD with acute exacerbation ([facility])- Primary Oxygen dependent Dependence on supplemental oxygen COPD mixed type ([facility]) Obesity (BMI 30-39.9) COVID- Primary Type 2 diabetes mellitus with diabetic polyneuropathy ([facility]) Type 2 diabetes mellitus with hyperglycemia ([facility]) 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 classified elsewhere ([facility]) 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 ([facility] COPD mixed type ([facility] Paroxysmal atrial fibrillation ([facility] Atrial fibrillation Primary hypertension ([facility] Unspecified essential hypertension Tobacco user Tobacco use disorder JORDAN (generalized anxiety disorder) ([facility])- Primary Generalized anxiety disorder SANTO (obstructive sleep apnea) Obstructive sleep apnea (adult) (pediatric) Type 2 diabetes mellitus with diabetic polyneuropathy, with long-term current use of insulin ([facility]) COPD mixed type ([facility] Oxygen dependent Dependence on supplemental oxygen Paroxysmal atrial fibrillation ([facility]) Atrial fibrillation Primary hypertension ([facility]) Unspecified essential hypertension Gastroesophageal reflux disease, unspecified whether esophagitis present Obesity (BMI 30-39.9) Type 2 diabetes mellitus without complication, with long-term current use of insulin Anxiety and depression ([facility]) retirement (current) use of insulin ([facility]) Medical non-compliance Mild episode of recurrent major depressive disorder (HCC) ([facility]) Cigarette nicotine dependence without complication Encounter for screening mammogram for malignant neoplasm of breast Diabetic polyneuropathy associated with type 2 diabetes mellitus ([facility]) Mixed hyperlipidemia ([facility]) Mixed hyperlipidemia Edema of extremities Edema Abscess of left groin documented in this encounter [facility] HealthcareEvaluation note* Diagnosis Primary hypertension ([facility])- Primary Unspecified essential hypertension Type 2 diabetes mellitus with diabetic neuropathy, with long-term current use of insulin ([facility]) Gastroesophageal reflux disease, unspecified whether esophagitis present Vitamin D deficiency Type 2 diabetes mellitus with complication, without long-term current use of insulin ([facility]) Mixed hyperlipidemia ([facility]) Mixed hyperlipidemia Encounter for screening mammogram for malignant neoplasm of breast SANTO (obstructive sleep apnea) Obstructive sleep apnea (adult) (pediatric) COPD mixed type ([facility]) Anxiety and depression ([facility]) COVID Open wound Open wound(s) (multiple) of unspecified site(s), without mention of complication Morbid obesity with body mass index (BMI) of 40.0 to 49.9 ([facility]) COPD mixed type ([facility])- Primary Dysuria Atrial fibrillation, unspecified type ([facility]) Gastroesophageal reflux disease, unspecified whether esophagitis present Type 2 diabetes mellitus with complication, without long-term current use of insulin ([facility]) Obesity (BMI 30-39.9) Tobacco user Tobacco use disorder Anxiety and depression ([facility]) Dermatitis Contact dermatitis and other eczema, due to unspecified cause Type 2 diabetes mellitus with hyperglycemia ([facility])- Primary Primary hypertension ([facility]) Unspecified essential hypertension Edema of extremities Edema Type 2 diabetes mellitus without complication, with long-term current use of insulin Vitamin D deficiency Tobacco user Tobacco use disorder Dizziness and giddiness Atrial fibrillation, unspecified type ([facility]) COPD mixed type ([facility]) Open wound of buttock, unspecified laterality, [...] unspecified osteoporosis type, unspecified pathological fracture presence ([facility]) Open wound of buttock, unspecified laterality, initial encounter Type 2 diabetes mellitus without complication, with long-term current use of insulin Obesity (BMI 30-39.9) Tobacco user Tobacco use disorder Anxiety and depression ([facility]) Type 2 diabetes mellitus with diabetic neuropathy, with long-term current use of insulin ([facility] COPD mixed type ([facility]) Diabetic polyneuropathy associated with type 2 diabetes mellitus ([facility]) Gastroesophageal reflux disease, unspecified whether esophagitis present Mixed hyperlipidemia ([facility]) Mixed hyperlipidemia Primary hypertension ([facility]) Unspecified essential hypertension Edema of extremities Edema Lung nodule, multiple Lymphadenopathy, generalized Vitamin D deficiency Oxygen dependent Dependence on supplemental oxygen Community acquired pneumonia, unspecified laterality COPD mixed type ([facility])- Primary SANTO (obstructive sleep apnea) Obstructive sleep apnea (adult) (pediatric) Lung nodule, multiple Community acquired pneumonia, unspecified laterality Primary hypertension ([facility]) Unspecified essential hypertension Atrial fibrillation, unspecified type ([facility]) Type 2 diabetes mellitus without complication, with long-term current use of insulin Tobacco user Tobacco use disorder Needs flu shot Need for prophylactic vaccination and inoculation against influenza Right wrist pain- Primary Pain in joint, forearm Obesity (BMI 30-39.9) 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 ([facility])- Primary COPD with acute exacerbation ([facility])- Primary Oxygen dependent Dependence on supplemental oxygen COPD mixed type ([facility]) Obesity (BMI 30-39.9) COVID- Primary Type 2 diabetes mellitus with diabetic polyneuropathy ([facility]) Type 2 diabetes mellitus with hyperglycemia ([facility]) 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 classified elsewhere ([facility]) 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 ([facility] COPD mixed type ([facility] Paroxysmal atrial fibrillation ([facility] Atrial fibrillation Primary hypertension ([facility]) Unspecified essential hypertension Tobacco user Tobacco use disorder JORDAN (generalized anxiety disorder) ([facility])- Primary Generalized anxiety disorder SANTO (obstructive sleep apnea) Obstructive sleep apnea (adult) (pediatric) Type 2 diabetes mellitus with diabetic polyneuropathy, with long-term current use of insulin ([facility]) COPD mixed type ([facility]) Oxygen dependent Dependence on supplemental oxygen Paroxysmal atrial fibrillation ([facility]) Atrial fibrillation Primary hypertension ([facility]) Unspecified essential hypertension Gastroesophageal reflux disease, unspecified whether esophagitis present Obesity (BMI 30-39.9) Type 2 diabetes mellitus without complication, with long-term current use of insulin Anxiety and depression ([facility]) retirement (current) use of insulin ([facility]) Medical non-compliance Mild episode of recurrent major depressive disorder (HCC) ([facility]) Cigarette nicotine dependence without complication Encounter for screening mammogram for malignant neoplasm of breast Diabetic polyneuropathy associated with type 2 diabetes mellitus ([facility]) Mixed hyperlipidemia (CMS/HCC) Mixed hyperlipidemia Edema of extremities Edema Abscess of left groin- Primary Primary hypertension ([facility]/HCC) Unspecified essential hypertension Type 2 diabetes mellitus without complication, with long-term current use of insulin Cigarette nicotine dependence without complication Encounter for screening mammogram for malignant neoplasm of breast Gill rash of groin Mild episode of recurrent major depressive disorder (HCC) ([facility]) documented in this encounter [facility] HealthcareEvaluation note* Diagnosis Primary hypertension ([facility])- Primary Unspecified essential hypertension Type 2 diabetes mellitus with diabetic neuropathy, with long-term current use of insulin ([facility]) Gastroesophageal reflux disease, unspecified whether esophagitis present Vitamin D deficiency Type 2 diabetes mellitus with complication, without long-term current use of insulin ([facility]) Mixed hyperlipidemia ([facility]) Mixed hyperlipidemia Encounter for screening mammogram for malignant neoplasm of breast SANTO (obstructive sleep apnea) Obstructive sleep apnea (adult) (pediatric) COPD mixed type ([facility]) Anxiety and depression ([facility]) COVID Open wound Open wound(s) (multiple) of unspecified site(s), without mention of complication Morbid obesity with body mass index (BMI) of 40.0 to 49.9 ([facility]) COPD mixed type ([facility]/HCC)- Primary Dysuria Atrial fibrillation, unspecified type ([facility]) Gastroesophageal reflux disease, unspecified whether esophagitis present Type 2 diabetes mellitus with complication, without long-term current use of insulin ([facility]) Obesity (BMI 30-39.9) Tobacco user Tobacco use disorder Anxiety and depression ([facility]) Dermatitis Contact dermatitis and other eczema, due to unspecified cause Type 2 diabetes mellitus with hyperglycemia ([facility])- Primary Primary hypertension ([facility]) Unspecified essential hypertension Edema of extremities Edema Type 2 diabetes mellitus without complication, with long-term current use of insulin Vitamin D deficiency Tobacco user Tobacco use disorder Dizziness and giddiness Atrial fibrillation, unspecified type ([facility]) COPD mixed type ([facility]) Open wound of buttock, unspecified laterality, [...] unspecified osteoporosis type, unspecified pathological fracture presence ([facility]) Open wound of buttock, unspecified laterality, initial encounter Type 2 diabetes mellitus without complication, with long-term current use of insulin Obesity (BMI 30-39.9) Tobacco user Tobacco use disorder Anxiety and depression ([facility]) Type 2 diabetes mellitus with diabetic neuropathy, with long-term current use of insulin ([facility]) COPD mixed type ([facility]) Diabetic polyneuropathy associated with type 2 diabetes mellitus ([facility]) Gastroesophageal reflux disease, unspecified whether esophagitis present Mixed hyperlipidemia ([facility]) Mixed hyperlipidemia Primary hypertension ([facility]) Unspecified essential hypertension Edema of extremities Edema Lung nodule, multiple Lymphadenopathy, generalized Vitamin D deficiency Oxygen dependent Dependence on supplemental oxygen Community acquired pneumonia, unspecified laterality COPD mixed type ([facility])- Primary SANTO (obstructive sleep apnea) Obstructive sleep apnea (adult) (pediatric) Lung nodule, multiple Community acquired pneumonia, unspecified laterality Primary hypertension ([facility]) Unspecified essential hypertension Atrial fibrillation, unspecified type ([facility]) Type 2 diabetes mellitus without complication, with long-term current use of insulin Tobacco user Tobacco use disorder Needs flu shot Need for prophylactic vaccination and inoculation against influenza Right wrist pain- Primary Pain in joint, forearm Obesity (BMI 30-39.9) 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 ([facility])- Primary COPD with acute exacerbation ([facility])- Primary Oxygen dependent Dependence on supplemental oxygen COPD mixed type ([facility]) Obesity (BMI 30-39.9) COVID- Primary Type 2 diabetes mellitus with diabetic polyneuropathy ([facility]) Type 2 diabetes mellitus with hyperglycemia ([facility]) 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 classified elsewhere ([facility]) retirement (current) use of insulin ([facility] COPD mixed type ([facility] Paroxysmal atrial fibrillation ([facility] Atrial fibrillation Primary hypertension ([facility] Unspecified essential hypertension Tobacco user Tobacco use disorder JORDAN (generalized anxiety disorder) ([facility])- Primary Generalized anxiety disorder SANTO (obstructive sleep apnea) Obstructive sleep apnea (adult) (pediatric) Type 2 diabetes mellitus with diabetic polyneuropathy, with long-term current use of insulin ([facility]) COPD mixed type ([facility] Oxygen dependent Dependence on supplemental oxygen Paroxysmal atrial fibrillation ([facility]) Atrial fibrillation Primary hypertension ([facility]) Unspecified essential hypertension Gastroesophageal reflux disease, unspecified whether esophagitis present Obesity (BMI 30-39.9) Type 2 diabetes mellitus without complication, with long-term current use of insulin Anxiety and depression ([facility]) retirement (current) use of insulin ([facility]) Medical non-compliance Mild episode of recurrent major depressive disorder (HCC) ([facility]) Cigarette nicotine dependence without complication Encounter for screening mammogram for malignant neoplasm of breast Diabetic polyneuropathy associated with type 2 diabetes mellitus ([facility]) Mixed hyperlipidemia ([facility]) Mixed hyperlipidemia Edema of extremities Edema Abscess of left groin- Primary Primary hypertension ([facility]) Unspecified essential hypertension Type 2 diabetes mellitus without complication, with long-term current use of insulin Cigarette nicotine dependence without complication Encounter for screening mammogram for malignant neoplasm of breast Gill rash of groin Mild episode of recurrent major depressive disorder (HCC) ([facility]) Type 2 diabetes mellitus without complication, with long-term current use of insulin- Primary Obesity (BMI 30-39.9) Abscess of left groin documented in this encounter [facility] HealthcareEvaluation note* Diagnosis Primary hypertension- Primary Unspecified essential hypertension Type 2 diabetes mellitus with diabetic neuropathy, with long-term current use of insulin ([facility]) Gastroesophageal reflux disease, unspecified whether esophagitis present Vitamin D deficiency Type 2 diabetes mellitus with complication, without long-term current use of insulin ([facility]) Mixed hyperlipidemia Mixed hyperlipidemia Encounter for screening mammogram for malignant neoplasm of breast SANTO (obstructive sleep apnea) Obstructive sleep apnea (adult) (pediatric) COPD mixed type ([facility]) Anxiety and depression COVID Open wound Open wound(s) (multiple) of unspecified site(s), without mention of complication Morbid obesity with body mass index (BMI) of 40.0 to 49.9 ([facility]) COPD mixed type (HCC)- Primary Dysuria Atrial fibrillation, unspecified type (HCC) Gastroesophageal reflux disease, unspecified whether esophagitis present Type 2 diabetes mellitus with complication, without long-term current use of insulin ([facility]) Obesity (BMI 30-39.9) Tobacco user Tobacco use disorder Anxiety and depression Dermatitis Contact dermatitis and other eczema, due to unspecified cause Type 2 diabetes mellitus with hyperglycemia ([facility])- Primary Primary hypertension Unspecified essential hypertension Edema of extremities Edema Type 2 diabetes mellitus without complication, with long-term current use of insulin ([facility]) Vitamin D deficiency Tobacco user Tobacco use disorder Dizziness and giddiness Atrial fibrillation, unspecified type (HCC) COPD mixed type (HCC) Open wound of buttock, unspecified laterality, initial encounter- Primary Type 2 diabetes mellitus without complication, with long-term current use of insulin ([facility]) Obesity (BMI 30-39.9) Dizziness and giddiness Viral upper respiratory tract infection- Primary Acute upper respiratory infections of unspecified site Tobacco user Tobacco use disorder Open wound Open wound(s) (multiple) of unspecified site(s), without mention of complication Obesity (BMI 30-39.9) Type 2 diabetes mellitus without complication, with long-term current use of insulin ([facility]) Encounter for wellness examination- Primary Osteoporosis, unspecified osteoporosis type, unspecified pathological fracture presence Open wound of buttock, unspecified laterality, initial encounter Type 2 diabetes mellitus without complication, with long-term current use of insulin ([facility]) Obesity (BMI 30-39.9) Tobacco user Tobacco use disorder Anxiety and depression Type 2 diabetes mellitus with diabetic neuropathy, with long-term current use of insulin ([facility]) COPD mixed type (HCC) Diabetic polyneuropathy associated with type 2 diabetes mellitus ([facility]) Gastroesophageal reflux disease, unspecified whether esophagitis [...] complication, with long-term current use of insulin ([facility]) Tobacco user Tobacco use disorder Needs flu shot Need for prophylactic vaccination and inoculation against influenza Right wrist pain- Primary Pain in joint, forearm Obesity (BMI 30-39.9) 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 ([facility])- Primary COPD with acute exacerbation ([facility])- Primary Oxygen dependent Dependence on supplemental oxygen COPD mixed type (HCC) Obesity (BMI 30-39.9) COVID- Primary Type 2 diabetes mellitus with diabetic polyneuropathy ([facility]) Type 2 diabetes mellitus with hyperglycemia ([facility]) 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 classified elsewhere ([facility]) retirement (current) use of insulin (HCC) COPD mixed type (HCC) Paroxysmal atrial fibrillation (HCC) Atrial fibrillation Primary hypertension Unspecified essential hypertension Tobacco user Tobacco use disorder JORDAN (generalized anxiety disorder)- Primary Generalized anxiety disorder SANTO (obstructive sleep apnea) Obstructive sleep apnea (adult) (pediatric) Type 2 diabetes mellitus with diabetic polyneuropathy, with long-term current use of insulin ([facility]) COPD mixed type (HCC) Oxygen dependent Dependence on supplemental oxygen Paroxysmal atrial fibrillation (HCC) Atrial fibrillation Primary hypertension Unspecified essential hypertension Gastroesophageal reflux disease, unspecified whether esophagitis present Obesity (BMI 30-39.9) Type 2 diabetes mellitus without complication, with long-term current use of insulin ([facility]) Anxiety and depression retirement (current) use of insulin ([facility]) Medical non-compliance Mild episode of recurrent major depressive disorder Cigarette nicotine dependence without complication Encounter for screening mammogram for malignant neoplasm of breast Diabetic polyneuropathy associated with type 2 diabetes mellitus ([facility]) Mixed hyperlipidemia Mixed hyperlipidemia Edema of extremities Edema Abscess of left groin- Primary Primary hypertension Unspecified essential hypertension Type 2 diabetes mellitus without complication, with long-term current use of insulin ([facility]) Cigarette nicotine dependence without complication Encounter for screening mammogram for malignant neoplasm of breast Gill rash of groin Mild episode of recurrent major depressive disorder COPD mixed type ([facility]) documented in this encounter [facility] HealthcareEvaluation note* Diagnosis Primary hypertension- Primary Unspecified essential hypertension Type 2 diabetes mellitus with diabetic neuropathy, with long-term current use of insulin ([facility]) Gastroesophageal reflux disease, unspecified whether esophagitis present Vitamin D deficiency Type 2 diabetes mellitus with complication, without long-term current use of insulin ([facility]) Mixed hyperlipidemia Mixed hyperlipidemia Encounter for screening mammogram for malignant neoplasm of breast SANTO (obstructive sleep apnea) Obstructive sleep apnea (adult) (pediatric) COPD mixed type (HCC) Anxiety and depression COVID Open wound Open wound(s) (multiple) of unspecified site(s), without mention of complication Morbid obesity with body mass index (BMI) of 40.0 to 49.9 ([facility]) COPD mixed type (HCC)- Primary Dysuria Atrial fibrillation, unspecified type (HCC) Gastroesophageal reflux disease, unspecified whether esophagitis present Type 2 diabetes mellitus with complication, without long-term current use of insulin ([facility]) Obesity (BMI 30-39.9) Tobacco user Tobacco [...] complication, with long-term current use of insulin ([facility]) Obesity (BMI 30-39.9) Dizziness and giddiness Viral upper respiratory tract infection- Primary Acute upper respiratory infections of unspecified site Tobacco user Tobacco use disorder Open wound Open wound(s) (multiple) of unspecified site(s), without mention of complication Obesity (BMI 30-39.9) Type 2 diabetes mellitus without complication, with long-term current use of insulin ([facility]) Encounter for wellness examination- Primary Osteoporosis, unspecified osteoporosis type, unspecified pathological fracture presence Open wound of buttock, unspecified laterality, initial encounter Type 2 diabetes mellitus without complication, with long-term current use of insulin ([facility]) Obesity (BMI 30-39.9) Tobacco user Tobacco [...] (HCC) 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 classified elsewhere ([facility]) 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 ([facility]) COPD mixed type (HCC) Paroxysmal atrial fibrillation (HCC) Atrial fibrillation Primary hypertension Unspecified essential hypertension Tobacco user Tobacco use disorder JORDAN (generalized anxiety disorder)- Primary Generalized anxiety disorder SANTO (obstructive sleep apnea) Obstructive sleep apnea (adult) (pediatric) Type 2 diabetes mellitus with diabetic polyneuropathy, with long-term current use of insulin ([facility]) COPD mixed type ([facility]) Oxygen dependent Dependence on supplemental oxygen Paroxysmal atrial fibrillation ([facility]) Atrial fibrillation Primary hypertension Unspecified essential hypertension Gastroesophageal reflux disease, unspecified whether esophagitis present Obesity (BMI 30-39.9) Type 2 diabetes mellitus without complication, with long-term current use of insulin ([facility]) Anxiety and depression 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 ([facility]) Medical non-compliance Mild episode of recurrent major depressive disorder Cigarette nicotine dependence without complication Encounter for screening mammogram for malignant neoplasm of breast Diabetic polyneuropathy associated with type 2 diabetes mellitus ([facility]) Mixed hyperlipidemia Mixed hyperlipidemia Edema of extremities Edema Abscess of left groin- Primary Primary hypertension Unspecified essential hypertension Type 2 diabetes mellitus without complication, with long-term current use of insulin ([facility]) Cigarette nicotine dependence without complication Encounter for screening mammogram for malignant neoplasm of breast Gill rash of groin Mild episode of recurrent major depressive disorder Primary hypertension- Primary Unspecified essential hypertension documented in this encounter [facility] HealthcareEvaluation note* Diagnosis Primary hypertension- Primary Unspecified essential hypertension Type 2 diabetes mellitus with diabetic neuropathy, with long-term current use of insulin ([facility]) Gastroesophageal reflux disease, unspecified whether esophagitis present Vitamin D deficiency Type 2 diabetes mellitus with complication, without long-term current use of insulin ([facility]) Mixed hyperlipidemia Mixed hyperlipidemia Encounter for screening mammogram for malignant neoplasm of breast SANTO (obstructive sleep apnea) Obstructive sleep apnea (adult) (pediatric) COPD mixed type ([facility]) Anxiety and depression COVID Open wound Open wound(s) (multiple) of unspecified site(s), without mention of complication Morbid obesity with body mass index (BMI) of 40.0 to 49.9 ([facility]) COPD mixed type (HCC)- Primary Dysuria Atrial fibrillation, unspecified type ([facility]) Gastroesophageal reflux disease, unspecified whether esophagitis present Type 2 diabetes mellitus with complication, without long-term current use of insulin ([facility]) Obesity (BMI 30-39.9) Tobacco user Tobacco [...] complication, with long-term current use of insulin ([facility]) Encounter for wellness examination- Primary Osteoporosis, unspecified osteoporosis type, unspecified pathological fracture presence Open wound of buttock, unspecified laterality, initial encounter Type 2 diabetes mellitus without complication, with long-term current use of insulin ([facility]) Obesity (BMI 30-39.9) Tobacco user Tobacco [...] complication, with long-term current use of insulin ([facility]) Tobacco user Tobacco use disorder Needs [...] (HCC) 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 classified elsewhere ([facility]) retirement (current) use of insulin (HCC) COPD mixed type (HCC) Paroxysmal atrial fibrillation (HCC) Atrial fibrillation Primary hypertension Unspecified essential hypertension Tobacco user Tobacco use disorder JORDAN (generalized anxiety disorder)- Primary Generalized anxiety disorder SANTO (obstructive sleep apnea) Obstructive sleep apnea (adult) (pediatric) Type 2 diabetes mellitus with diabetic polyneuropathy, with long-term current use of insulin ([facility]) COPD mixed type (HCC) Oxygen dependent Dependence on supplemental oxygen Paroxysmal atrial fibrillation (HCC) Atrial fibrillation Primary hypertension Unspecified essential hypertension Gastroesophageal reflux disease, unspecified whether esophagitis present Obesity (BMI 30-39.9) Type 2 diabetes mellitus without complication, with long-term current use of insulin ([facility]) Anxiety and depression retirement (current) use of insulin ([facility]) Medical non-compliance Mild episode of recurrent major depressive disorder Cigarette nicotine dependence without complication Encounter for screening mammogram for malignant neoplasm of breast Diabetic polyneuropathy associated with type 2 diabetes mellitus ([facility]) Mixed hyperlipidemia Mixed hyperlipidemia Edema of extremities Edema Abscess of left groin- Primary Primary hypertension Unspecified essential hypertension Type 2 diabetes mellitus without complication, with long-term current use of insulin ([facility]) Cigarette nicotine dependence without complication Encounter for screening mammogram for malignant neoplasm of breast Gill rash of groin Mild episode of recurrent major depressive disorder Gill infection of genital region- Primary Type 2 diabetes mellitus without complication, with long-term current use of insulin ([facility]) Gill rash of groin Abscess of left groin documented in this encounter [facility] HealthcareEvaluation note* Diagnosis Primary hypertension- Primary Unspecified essential hypertension Type 2 diabetes mellitus with diabetic neuropathy, with long-term current use of insulin ([facility]) Gastroesophageal reflux disease, unspecified whether esophagitis present Vitamin D deficiency Type 2 diabetes mellitus with complication, without long-term current use of insulin ([facility]) Mixed hyperlipidemia Mixed hyperlipidemia Encounter for screening mammogram for malignant neoplasm of breast SANTO (obstructive sleep apnea) Obstructive sleep apnea (adult) (pediatric) COPD mixed type ([facility]) Anxiety and depression COVID Open wound Open wound(s) (multiple) of unspecified site(s), without mention of complication Morbid obesity with body mass index (BMI) of 40.0 to 49.9 ([facility]) COPD mixed type ([facility])- Primary Dysuria Atrial fibrillation, unspecified type (HCC) Gastroesophageal reflux disease, unspecified whether esophagitis present Type 2 diabetes mellitus with complication, without long-term current use of insulin ([facility]) Obesity (BMI 30-39.9) Tobacco user Tobacco use disorder Anxiety and depression Dermatitis Contact dermatitis and other eczema, due to unspecified cause Type 2 diabetes mellitus with hyperglycemia ([facility])- Primary Primary hypertension Unspecified essential hypertension Edema of extremities Edema Type 2 diabetes mellitus without complication, with long-term current use of insulin ([facility]) Vitamin D deficiency Tobacco user Tobacco use disorder Dizziness and giddiness Atrial fibrillation, unspecified type (HCC) COPD mixed type (HCC) Open wound of buttock, unspecified laterality, initial encounter- Primary Type 2 diabetes mellitus without complication, with long-term current use of insulin ([facility]) Obesity (BMI 30-39.9) Dizziness and giddiness Viral upper respiratory tract infection- Primary Acute upper respiratory infections of unspecified site Tobacco user Tobacco use disorder Open wound Open wound(s) (multiple) of unspecified site(s), without mention of complication Obesity (BMI 30-39.9) Type 2 diabetes mellitus without complication, with long-term current use of insulin ([facility]) Encounter for wellness examination- Primary Osteoporosis, unspecified osteoporosis type, unspecified pathological fracture presence Open wound of buttock, unspecified laterality, initial encounter Type 2 diabetes mellitus without complication, with long-term current use of insulin ([facility]) Obesity (BMI 30-39.9) Tobacco user Tobacco use disorder Anxiety and depression Type 2 diabetes mellitus with diabetic neuropathy, with long-term current use of insulin ([facility]) COPD mixed type (HCC) Diabetic polyneuropathy [...] complication, with long-term current use of insulin ([facility]) Tobacco user Tobacco use disorder Needs [...] and depression retirement (current) use of insulin ([facility]) Medical non-compliance Mild episode of recurrent [...] complication, without long-term current use of insulin ([facility]) Mixed hyperlipidemia Mixed hyperlipidemia Encounter for screening mammogram for malignant neoplasm of breast SANTO (obstructive sleep apnea) Obstructive sleep apnea (adult) (pediatric) COPD mixed type ([facility]) Anxiety and depression COVID Open wound Open wound(s) (multiple) of unspecified site(s), without mention of complication Morbid obesity with body mass index (BMI) of 40.0 to 49.9 ([facility]) COPD mixed type (HCC)- Primary Dysuria Atrial fibrillation, unspecified type ([facility]) Gastroesophageal reflux disease, unspecified whether esophagitis present Type 2 diabetes mellitus with complication, without long-term current use of insulin ([facility]) Obesity (BMI 30-39.9) Tobacco user Tobacco use disorder Anxiety and depression Dermatitis Contact dermatitis and other eczema, due to unspecified cause Type 2 diabetes mellitus with hyperglycemia ([facility])- Primary Primary hypertension Unspecified essential hypertension Edema of extremities Edema Type 2 diabetes mellitus without complication, with long-term current use of insulin ([facility]) Vitamin D deficiency Tobacco user Tobacco use disorder Dizziness and giddiness Atrial fibrillation, unspecified type ([facility]) COPD mixed type ([facility]) Open wound of buttock, unspecified laterality, initial encounter- Primary Type 2 diabetes mellitus without complication, with long-term current use of insulin ([facility]) Obesity (BMI 30-39.9) Dizziness and giddiness Viral upper respiratory tract infection- Primary Acute upper respiratory infections of unspecified site Tobacco user Tobacco use disorder Open wound Open wound(s) (multiple) of unspecified site(s), without mention of complication Obesity (BMI 30-39.9) Type 2 diabetes mellitus without complication, with long-term current use of insulin ([facility]) Encounter for wellness examination- Primary Osteoporosis, unspecified osteoporosis type, unspecified pathological fracture presence Open wound of buttock, unspecified laterality, initial encounter Type 2 diabetes mellitus without complication, with long-term current use of insulin ([facility]) Obesity (BMI 30-39.9) Tobacco user Tobacco use disorder Anxiety and depression Type 2 diabetes mellitus with diabetic neuropathy, with long-term current use of insulin ([facility]) COPD mixed type ([facility]) Diabetic polyneuropathy associated with type 2 diabetes mellitus ([facility]) Gastroesophageal reflux disease, unspecified whether esophagitis [...] Type 2 diabetes mellitus with diabetic polyneuropathy ([facility]) Type 2 diabetes mellitus with hyperglycemia ([facility]) 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 classified elsewhere ([facility]) 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 (HCC) COPD mixed type (HCC) Paroxysmal atrial fibrillation (HCC) Atrial fibrillation Primary hypertension Unspecified essential hypertension Tobacco user Tobacco use disorder JORDAN (generalized anxiety disorder)- Primary Generalized anxiety disorder SANTO (obstructive sleep apnea) Obstructive sleep apnea (adult) (pediatric) Type 2 diabetes mellitus with diabetic polyneuropathy, with long-term current use of insulin ([facility]) COPD mixed type (HCC) Oxygen dependent Dependence on supplemental oxygen Paroxysmal atrial fibrillation (HCC) Atrial fibrillation Primary hypertension Unspecified essential hypertension Gastroesophageal reflux disease, unspecified whether esophagitis present Obesity (BMI 30-39.9) Type 2 diabetes mellitus without complication, with long-term current use of insulin ([facility]) Anxiety and depression 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 ([facility]) Medical non-compliance Mild episode of recurrent major depressive disorder Cigarette nicotine dependence without complication Encounter for screening mammogram for malignant neoplasm of breast Diabetic polyneuropathy associated with type 2 diabetes mellitus ([facility]) Mixed hyperlipidemia Mixed hyperlipidemia Edema of extremities Edema Abscess of left groin- Primary Primary hypertension Unspecified essential hypertension Type 2 diabetes mellitus without complication, with long-term current use of insulin ([facility]) Cigarette nicotine dependence without complication Encounter for screening mammogram for malignant neoplasm of breast Gill rash of groin Mild episode of recurrent major depressive disorder Gill infection of genital region- Primary Type 2 diabetes mellitus without complication, with long-term current use of insulin ([facility]) Gill rash of groin Abscess of left groin Type 2 diabetes mellitus without complication, with long-term current use of insulin ([facility])- Primary Gill rash of groin Cigarette nicotine dependence without complication Urge and stress incontinence Mixed incontinence urge and stress (male)(female) Primary hypertension Unspecified essential hypertension Paroxysmal atrial fibrillation (HCC) Atrial fibrillation Medical non-compliance Mild episode of recurrent major depressive disorder documented in this encounter [facility] HealthcareEvaluation note* Diagnosis Primary hypertension- Primary Unspecified essential hypertension Type 2 diabetes mellitus with diabetic neuropathy, with long-term current use of insulin ([facility]) Gastroesophageal reflux disease, unspecified whether esophagitis present Vitamin D deficiency Type 2 diabetes mellitus with complication, without long-term current use of insulin ([facility]) Mixed hyperlipidemia Mixed hyperlipidemia Encounter for screening mammogram for malignant neoplasm of breast SANTO (obstructive sleep apnea) Obstructive sleep apnea (adult) (pediatric) COPD mixed type ([facility]) Anxiety and depression COVID Open wound Open wound(s) (multiple) of unspecified site(s), without mention of complication Morbid obesity with body mass index (BMI) of 40.0 to 49.9 ([facility]) COPD mixed type ([facility])- Primary Dysuria Atrial fibrillation, unspecified type ([facility]) Gastroesophageal reflux disease, unspecified whether esophagitis present Type 2 diabetes mellitus with complication, without long-term current use of insulin ([facility]) Obesity (BMI 30-39.9) Tobacco user Tobacco use disorder Anxiety and depression Dermatitis Contact dermatitis and other eczema, due to unspecified cause Type 2 diabetes mellitus with hyperglycemia ([facility])- Primary Primary hypertension Unspecified essential hypertension Edema of extremities Edema Type 2 diabetes mellitus without complication, with long-term current use of insulin ([facility]) Vitamin D deficiency Tobacco user Tobacco use disorder Dizziness and giddiness Atrial fibrillation, unspecified type ([facility]) COPD mixed type ([facility]) Open wound of buttock, unspecified laterality, initial encounter- Primary Type 2 diabetes mellitus without complication, with long-term current use of insulin ([facility]) Obesity (BMI 30-39.9) Dizziness and giddiness Viral upper respiratory tract infection- Primary Acute upper respiratory infections of unspecified site Tobacco user Tobacco use disorder Open wound Open wound(s) (multiple) of unspecified site(s), without mention of complication Obesity (BMI 30-39.9) Type 2 diabetes mellitus without complication, with long-term current use of insulin ([facility]) Encounter for wellness examination- Primary Osteoporosis, [...] complication, with long-term current use of insulin ([facility]) Tobacco user Tobacco use disorder Needs flu shot Need for prophylactic vaccination and inoculation against influenza Right wrist pain- Primary Pain in joint, forearm Obesity (BMI 30-39.9) 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 ([facility])- Primary COPD with acute exacerbation ([facility])- Primary Oxygen dependent Dependence on supplemental oxygen COPD mixed type (HCC) Obesity (BMI 30-39.9) COVID- Primary Type 2 diabetes mellitus with diabetic polyneuropathy ([facility]) Type 2 diabetes mellitus with hyperglycemia ([facility]) 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 classified elsewhere ([facility]) retirement (current) use of insulin (HCC) COPD [...] use of insulin (HCC) Anxiety and depression 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 ([facility]) Medical non-compliance Mild episode of recurrent [...] 1 cm to 4 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 ([facility]) Vitamin D deficiency- Primary Primary hypertension Unspecified essential hypertension Edema of extremities Edema COPD mixed type (HCC) Type 2 diabetes mellitus with diabetic neuropathy, with long-term current use of insulin ([facility]) documented in this encounter [facility] (narrative)* Consultation (Routine) - Pending Review Specialty Diagnoses / Procedures Referred By Darcie joshua Referred To Contact Wound Care Diagnoses Open wound Type 2 diabetes mellitus without complication, with long-term current use of insulin ([facility]) Procedures [facility] OFFICE/OUTPATIENT NEW HIGH MDM 60 MINUTES Maira Rush NP [address] [place] [address] Referral ID Status Reason Start Date Expiration Date Visits Requested Visits Authorized [id number] Pending Review Specialty Services Required 03/11/2024 09/07/2024 1 1 Scheduling Instructions Please call [facility] and schedule pt with their wound care [...] Referred To Contact Diagnoses COPD mixed type ([facility]/HCC) Maira Rush NP [address] [place] [address] Referral ID Status Reason Start Date Expiration Date V isits Requested Visits Authorized [id number] Pending Review 1 1 Additional Source Comments INFORMATION SOURCE (unrecogn ized section and content) DATE CREATED AUTHOR 10/06/2018 [facility] DATE CREATED AUTHOR AUTHOR'S ORGANIZ ATION 10/09/2022 [facility] DATE CREATED AUTHOR AUTHOR'S ORGANIZ ATION 01/25/2024 [facility] DATE CREATED AUTHOR AUTHOR'S ORGANIZ ATION 02/14/2024 [facility] DATE CREATED AUTHOR AUTHOR'S ORGANIZ ATION 11/02/2024 [facility] DATE CREATED AUTHOR AUTHOR'S ORGANIZ ATION 01/10/2025 [facility] EPIC DATE CREATED AUTHOR AUTHOR'S ORGANIZ ATION 01/20/2025 [facility] Care Teams (unrecognized sec tion and content) Camera Tuning Engineer Relationship Specialty Start Date End Date Brandon Mcfarlane MD [address] [place] [address] PCP - General Family Medicine 06/26/23 Maira Rush NP [address] [place] [address] Referring Physician Nurse Practitioner 12/17/22 Camera Tuning Engineer Relationship Specialty Start Date End Date Brandon Mcfarlane MD [address] [place] [address] PCP - General Family Medicine 06/26/23 Maira Rush NP [address] [place] [phone] Referring Physician Nurse Practitioner 12/17/22 Camera Tuning Engineer Relationship Specialty Start Date End Date Brandon Mcfarlane MD [address] [place] [phone] PCP - General Family Medicine 06/26/23 Maira Rush NP [address] [place] [phone] Referring Physician Nurse Practitioner 12/17/22 Camera Tuning Engineer Relationship Specialty Start Date End Date Brandon Mcfarlane MD [address] [place] [phone] PCP - General Family Medicine 06/26/23 Maira Rush NP [address] [place] [phone] Referring Physician Nurse Practitioner 12/17/22 Camera Tuning Engineer Relationship Specialty Start Date End Date Brandon Mcfarlane MD [address] [place] [phone] PCP - General Family Medicine 06/26/23 Maira Rush NP [address] [place] [phone] Referring Physician Nurse Practitioner 12/17/22 Camera Tuning Engineer Relationship Specialty Start Date End Date Brandon Mcfarlane MD [address] [place] [phone] PCP - General Family Medicine 06/26/23 Maira Rush NP [address] [place] [phone] Referring Physician Nurse Practitioner 12/17/22 Camera Tuning Engineer Relationship Specialty Start Date End Date Brandon Mcfarlane MD [address] [place] [phone] PCP - General Family Medicine 06/26/23 Maira Rush NP [address] [place] [address] Referring Physician Nurse Practitioner 12/17/22 Camera Tuning Engineer Relationship Specialty Start Date End Date Brandon Mcfarlane MD [address] [place] [phone] PCP - General Family Medicine 06/26/23 Maira Rush NP [address] [place] [address] Referring Physician Nurse Practitioner 12/17/22 Camera Tuning Engineer Relationship Specialty Start Date End Date Brandon Mcfarlane MD [address] [place] [address] PCP - General Family Medicine 06/26/23 Maira Rush NP [address] [place] [address] Referring Physician Nurse Practitioner 12/17/22 Camera Tuning Engineer Relationship Specialty Start Date End Date Brandon Mcfarlane MD [address] [place] [address] PCP - General Family Medicine 06/26/23 Maira Rush NP [address] [place] [address] Referring Physician Nurse Practitioner 12/17/22 Camera Tuning Engineer Relationship Specialty Start Date End Date Brandon Mcfarlane MD [address] [place] [phone] PCP - General Family Medicine 06/26/23 Maira Rush NP [address] [place] [address] Referring Physician Nurse Practitioner 12/17/22 Camera Tuning Engineer Relationship Specialty Start Date End Date Brandon Mcfarlane MD [address] [place] [phone] PCP - General Family Medicine 06/26/23 Maira Rush NP [address] [place] [address] Referring Physician Nurse Practitioner 12/17/22 Camera Tuning Engineer Relationship Specialty Start Date End Date Brandon Mcfarlane MD [address] [place] [phone] PCP - General Family Medicine 06/26/23 Maira Rush NP [address] [place] [address] Referring Physician Nurse Practitioner 12/17/22 Camera Tuning Engineer Relationship Specialty Start Date End Date Brandon Mcfarlane MD [address] [place] [address] PCP - General Family Medicine 06/26/23 Maira Rush NP [address] [place] [address] Referring Physician Nurse Practitioner 12/17/22 Camera Tuning Engineer Relationship Specialty Start Date End Date Brandon Mcfarlane MD [address] [place] [address] PCP - General Family Medicine 06/26/23 Maira Rush NP [address] [place] [address] Referring Physician Nurse Practitioner 12/17/22 Camera Tuning Engineer Relationship Specialty Start Date End Date Brandon Mcfarlane MD [address] [place] [address] PCP - General Family Medicine 06/26/23 Maira Rush NP [address] [place] [address] Referring Physician Nurse Practitioner 12/17/22 Camera Tuning Engineer Relationship Specialty Start Date End Date Brandon Mcfarlane MD [address] [place] [address] PCP - General Family Medicine 06/26/23 Maira Rush NP [address] [place] [address] Referring Physician Nurse Practitioner 12/17/22 Camera Tuning Engineer Relationship Specialty Start Date End Date Brandon Mcfarlane MD [address] [place] [address] PCP - General Family Medicine 06/26/23 Maira Rush NP [address] [place] [address] Referring Physician Nurse Practitioner 12/17/22 Camera Tuning Engineer Relationship Specialty Start Date End Date Brandon Mcfarlane MD [address] [place] [address] PCP - General Family Medicine 06/26/23 Maira Rush NP [address] [place] [address] Referring Physician Nurse Practitioner 12/17/22 Camera Tuning Engineer Relationship Specialty Start Date End Date Brandon Mcfarlane MD [address] [place] [address] PCP - General Family Medicine 06/26/23 Maira Rush NP [address] [place] [address] Referring Physician Nurse Practitioner 12/17/22 Camera Tuning Engineer Relationship Specialty Start Date End Date Brandon Mcfarlane MD [address] [place] [address] PCP - General Family Medicine 06/26/23 Maira Rush NP [address] [place] [address] Referring Physician Nurse Practitioner 12/17/22 Camera Tuning Engineer Relationship Specialty Start Date End Date Brandon Mcfarlane MD [address] [place] [phone] PCP - General Family Medicine 06/26/23 Maira Rush NP [address] [place] [address] Referring Physician Nurse Practitioner 12/17/22 Camera Tuning Engineer Relationship Specialty Start Date End Date Brandon Mcfarlane MD [address] [place] [address] PCP - General Family Medicine 06/26/23 Maira Rush NP [address] [place] [address] Referring Physician Nurse Practitioner 12/17/22 Camera Tuning Engineer Relationship Specialty Start Date End Date Brandon Mcfarlane MD [address] [place] [address] PCP - General Family Medicine 06/26/23 Maira Rush NP [address] [place] [address] Referring Physician Nurse Practitioner 12/17/22 Camera Tuning Engineer Relationship Specialty Start Date End Date Brandon Mcfarlane MD [address] [place] [address] PCP - General Family Medicine 06/26/23 Maira Rush NP [address] [place] [address] Referring Physician Nurse Practitioner 12/17/22 Camera Tuning Engineer Relationship Specialty Start Date End Date Brandon Mcfarlane MD [address] [place] [address] PCP - General Family Medicine 06/26/23 Maira Rush NP [address] [place] [address] Referring Physician Nurse Practitioner 12/17/22 Camera Tuning Engineer Relationship Specialty Start Date End Date Brandon Mcfarlane MD [address] [place] [address] PCP - General Family Medicine 06/26/23 Maira Rush NP [address] [place] [address] Referring Physician Nurse Practitioner 12/17/22 Camera Tuning Engineer Relationship Specialty Start Date End Date Brandon Mcfarlane MD [address] [place] [address] PCP - General Family Medicine 06/26/23 Maira Rush NP [address] [place] [address] Referring Physician Nurse Practitioner 12/17/22 Camera Tuning Engineer Relationship Specialty Start Date End Date Brandon Mcfarlane MD [address] [place] [address] PCP - General Family [facility] 06/26/23 Maira Rush NP [address] [place] [address] Referring Physician Nurse Practitioner 12/17/22 Camera Tuning Engineer Relationship Specialty Start Date End Date Brandon Mcfarlane MD [address] [place] [address] PCP - [facility] 06/26/23 Maira Rush NP [address] [place] [address] [facility] 06/03/24 Maira Rush NP [address] [place] [address] Referring Physician Nurse Practitioner 12/17/22 Camera Tuning Engineer Relationship Specialty Start Date End Date Brandon Mcfarlane MD [address] [place] [address] PCP - [facility] 06/26/23 Maira Rush NP [address] [place] [address] [facility] 06/03/24 Maira Rush NP [address] [place] [address] Referring Physician Nurse Practitioner 12/17/22 Camera Tuning Engineer Relationship Specialty Start Date End Date Brandon Mcfarlane MD [address] [place] [address] PCP - General [facility] 06/26/23 Maira Rush NP [address] [place] [address] [facility] 06/03/24 Maira Rush NP [address] [place] [address] Referring Physician Nurse Practitioner 12/17/22 Camera Tuning Engineer Relationship Specialty Start Date End Date Brandon Mcfarlane MD [address] [place] [address] PCP - [facility] 06/26/23 Maira Rush NP [address] [place] [address] [facility] 06/03/24 Maira Rush NP [address] [place] [address] Referring Physician Nurse Practitioner 12/17/22 Camera Tuning Engineer Relationship Specialty Start Date End Date Brandon Mcfarlane MD [address] [place] [address] PCP - [facility] 06/26/23 Maira Rush NP [address] [place] [address] [facility] 06/03/24 Maira Rush NP [address] [place] [address] Referring Physician Nurse Practitioner 12/17/22 Camera Tuning Engineer Relationship Specialty Start Date End Date Brandon Mcfarlane MD [address] [place] [address] PCP - General Family [facility] 06/26/23 Maira Rush NP [address] [place] [address] [facility] 06/03/24 Maira Rush NP [address] [place] [address] Referring Physician Nurse Practitioner 12/17/22 Camera Tuning Engineer Relationship Specialty Start Date End Date Brandon Mcfarlane MD [address] [place] [address] PCP - [facility] 06/26/23 Maira Rush NP [address] [place] [address] [facility] 06/03/24 Maira Rush NP [address] [place] [address] Referring Physician Nurse Practitioner 12/17/22 Camera Tuning Engineer Relationship Specialty Start Date End Date Brandon Mcfarlane MD [address] [place] [address] PCP - [facility] 06/26/23 Maira Rush NP [address] [place] [address] [facility] 06/03/24 Maira Rush NP [address] [place] [address] Referring Physician Nurse Practitioner 12/17/22 Camera Tuning Engineer Relationship Specialty Start Date End Date Brandon Mcfarlane MD [address] [place] [address] PCP - [facility] 06/26/23 Maira Rush NP [address] [place] [address] [facility] 06/03/24 Maira Rush NP [address] [place] [address] Referring Physician Nurse Practitioner 12/17/22 Camera Tuning Engineer Relationship Specialty Start Date End Date Brandon Mcfarlane MD [address] [place] [address] PCP - [facility] 06/26/23 Maira Rush NP [address] [place] [address]1002 [facility] 06/03/24 Maira Rush NP [address] [place] [address] Referring Physician Nurse Practitioner 12/17/22 Camera Tuning Engineer Relationship Specialty Start Date End Date Brandon Mcfarlane MD [address] [place] [address] PCP - General Family [facility] 06/26/23 Maira Rush NP [address] [place] [address] [facility] 06/03/24 Maira Rush NP [address] [place] [address] Referring Physician Nurse Practitioner 12/17/22 Camera Tuning Engineer Relationship Specialty Start Date End Date Brandon Mcfarlane MD [address] [place] [address] PCP - General [facility] 06/26/23 Maira Rush NP [address] [place] [address] [facility] 06/03/24 Maira Rush NP [address] [place] [address] Referring Physician Nurse Practitioner 12/17/22 Camera Tuning Engineer Relationship Specialty Start Date End Date Brandon Mcfarlane MD [address] [place] [address] PCP - General Family [facility] 06/26/23 Maira Rush NP [address] [place] [address]1002 [facility] 06/03/24 Maira Rush NP [address] [place] [address] Referring Physician Nurse Practitioner 12/17/22 Camera Tuning Engineer Relationship Specialty Start Date End Date Brandon Mcfarlane MD [address] [place] [address] PCP - [facility] 06/26/23 Maira Rush NP [address] [place] [address]1002 [facility] 06/03/24 Maira Rush NP [address] [place] [address] Referring Physician Nurse Practitioner 12/17/22 Camera Tuning Engineer Relationship Specialty Start Date End Date Brandon Mcfarlane MD [address] [place] [address] PCP - [facility] 06/26/23 Maira Rush NP [address] [place] [address] [facility] 06/03/24 Maira Rush NP [address] [place] [address] Referring Physician Nurse Practitioner 12/17/22 Camera Tuning Engineer Relationship Specialty Start Date End Date Brandon Mcfarlane MD [address] [place] [address] PCP - General [facility] 06/26/23 Maira Rush NP [address] [place] [address] [facility] 06/03/24 Maira Rush NP [address] [place] [address] Referring Physician Nurse Practitioner 12/17/22 Camera Tuning Engineer Relationship Specialty Start Date End Date Brandon Mcfarlane MD [address] [place] [address] PCP - General Family [facility] 06/26/23 Maira Rush NP [address] [place] [address] PCP [facility] 06/03/24 Maira Rush NP [address] [place] [address] Referring Physician Nurse Practitioner 12/17/22 Camera Tuning Engineer Relationship Specialty Start Date End Date Brandon Mcfarlane MD [address] [place] [address] PCP - General Family [facility] 06/26/23 Maira Rush NP [address] [place] [address] [facility] 06/03/24 Maira Rush NP [address] [place] [address] Referring Physician Nurse Practitioner 12/17/22 Camera Tuning Engineer Relationship Specialty Start Date End Date Brandon Mcfarlane MD [address] [place] [address] PCP - [facility] 06/26/23 Maira Rush NP [address] [place] [address]1002 [facility] 06/03/24 Maira Rush NP [address] [place] [address] Referring Physician Nurse Practitioner 12/17/22 Camera Tuning Engineer Relationship Specialty Start Date End Date Brandon Mcfarlane MD [address] [place] [address] PCP - [facility] 06/26/23 Maira Rush NP [address] [place] [address] PCP - [facility] 06/03/24 Maira Rush NP [address] [place] [address] Referring Physician Nurse Practitioner 12/17/22 Camera Tuning Engineer Relationship Specialty Start Date End Date Brandon Mcfarlane MD [address] [place] [address] PCP - [facility] 06/26/23 Maira Rush NP [address] [place] [address] [facility] 06/03/24 Maira Rush NP [address] [place] [address] Referring Physician Nurse Practitioner 12/17/22 Camera Tuning Engineer Relationship Specialty Start Date End Date Brandon Mcfarlane MD [address] [place] [address] PCP - [facility] 06/26/23 Maira Rush NP [address] [place] [address] [facility] 06/03/24 Maira Rush NP [address] [place] [address] Referring Physician Nurse Practitioner 12/17/22 Chandrika Danielson, [place] [address] [place] [address] Family Medicine 12/14/24 Lilian Quezada, NON DESTRUCTIVE TESTING ENGINEER [address] [place] [address] Mill [employer] Supervisor Family Medicine 12/14/24 Camera Tuning Engineer Relationship Specialty Start Date End Date Brandon Mcfarlane MD [address] [place] [address] PCP - General [facility] 06/26/23 Maira Rush NP [address] [place] [address] PCP - [facility] 06/03/24 Maira Rush NP [address] [place] [address] Referring Physician Nurse Practitioner 12/17/22 Chandrika Danielson, [place] [address] [place] [address] Family Medicine 12/14/24 Lilian Quezada, NON DESTRUCTIVE TESTING ENGINEER [address] [place] [address] [employer] Supervisor Family Medicine 12/14/24 Camera Tuning Engineer Relationship Specialty Start Date End Date Brandon Mcfarlane MD [address] [place] [address] PCP - General [facility] 06/26/23 Maira Rush NP [address] [place] [address] PCP - [facility] 06/03/24 Maira Rush NP [address] [place] [address] Referring Physician Nurse Practitioner 12/17/22 Chandrika Danielson, NORAH [address] [place] [address] Family Medicine 12/14/24 Lilian Quezada, NON DESTRUCTIVE TESTING ENGINEER [address] [place] [address] Mill [employer] Supervisor Family Medicine 12/14/24 Reason for Visit (unrecogniz [...] BE BASED ON THE PRIMARY CLINICAL RECORDS. [facility]. provides no warranty or guarantee of the accuracy or completeness of information in this document.
[2025-02-12 11:52] LABS: Hematocrit 52.1 % (36.0-48.0); Hemoglobin 17.8 g/dL (12.0-16.0); Immature Granulocytes Abs Auto 0.03 10^3/uL (0.00-0.03); Immature Granulocytes Pct Auto 0.3 % (0.0-0.5); Lymphocytes Absolute Auto 3.4 10^3/uL (1.2-3.8); Mean Corpuscular HGB Conc 34.2 g/dL (29.9-35.2); Mean Corpuscular Hemoglobin 31.5 pg (26.7-34.0); Mean Corpuscular Volume 92.2 fL (81.0-99.0); Platelet Count 348 10^3/uL (150-450); Red Blood Count 5.65 10^6/uL (4.20-5.40); White Blood Count 9.8 10^3/uL (4.0-11.0)
--- NOTE | 2025-02-12 12:00 | PC.NURSE ---
Chelsey from [facility] states to this RN that pt told her she would go home and walk into traffic or pull out her knives when she gets home. Pt now placed in suicidal 1:1 observation.
[2025-02-12 12:06] LABS: Cannabinoid Screen Urine NEGATIVE (NEGATIVE); Methamphetamines Screen Urine NEGATIVE (NEGATIVE); Tricyclic Antidepressant Urine NEGATIVE (NEGATIVE)
[2025-02-12 12:13] LABS: Alanine Aminotransferase 15 U/L (14-59); Albumin Globulin Ratio 0.8; Albumin Level 3.6 g/dL (3.4-5.0); Alkaline Phosphatase 110 U/L (46-116); Anion Gap 15.3; Aspartate Amino Transferase 13 U/L (15-37); Blood Urea Nitrogen 13.0 mg/dL (7.0-18.0); Calcium 9.6 mg/dL (8.5-10.1); Carbon Dioxide 27.1 mmol/L (21.0-32.0); Chloride 101 mmol/L (98-107); Estimated GFR (African America >60 (>=60 mL/min/1.73m^2); Estimated GFR (Non-African Ame >60 (>=60 mL/min/1.73m^2); Globulin 4.5 g/dL; Glucose 296 mg/dL (74-106); Potassium 4.4 mmol/L (3.5-5.1); Sodium 139 mmol/L (136-145); Total Protein 8.1 g/dL (6.4-8.2)
--- NOTE | 2025-02-12 13:26 | ED_ITS ---
HPI - Psych General Chief Complaint: Psychiatric Symptoms Stated Complaint: SUICIDAL IDEATION Time Seen by Provider: 02/12/25 11:35 Source: Reports patient Mode of arrival: ambulance Limitations: Reports no limitations History of Present Illness HPI Narrative: The patient is a 64 years old female brought to us for a concern of suicidal ideation, patient is coming by the EMS after she expressed that she is suicidal, she have a plan to jump in front of the traffic, patient is emotional expressed that she is feeling sad and depressed, and apparently she had some issues socially over the last few days with a new male partner that she has been talking to, and some financial issues The patient has been taking her medication Related Data Home Medications ?Medication ?Instructions ?Recorded ?Confirmed aspirin 81 mg tablet,delayed 81 mg PO DAILY 04/05/23 0 01/27/25 release budesonide-formoterol HFA 160 2 puff inhalation BID 01/27/25 mcg-4.5 mcg/actuation aerosol inhaler (Symbicort) carvedilol 12.5 mg tablet 12.5 mg PO BID 04/05/2301/02 empagliflozin 25 mg tablet 25 mg PO DAILY 04/05/23 (Jardiance) insulin aspart U-100 100 unit/mL 1 sliding scale dose subcut 04/05/23 01/27/25 (3 mL) subcutaneous pen (Novolog TIDWMEAL FlexPen U-100 Insulin aspart) insulin glargine 100 unit/mL (3 60 unit subcut QPM 08/2301/27/25 mL) subcutaneous pen (Lantus Solostar U-100 Insulin) pantoprazole 40 mg tablet,delayed 40 mg PO DAILY 04/0501/27/25 release rivaroxaban 20 mg tablet (Xarelto) 20 mg PO DAILY 08/2301/27/25 rosuvastatin 5 mg tablet 5 mg PO DAILY 04/05/2301/27 paroxetine HCl 30 mg tablet 30 mg PO DAILY 10/03/24 alcohol swabs (Alcohol Prep Pads) 1 pad topical .as di rected 01/27/25 01/27/25 blood glucose control, normal 01/27/25 01/27/25 (True Metrix Level 2 solution) blood sugar diagnostic (True 01/27/25 01/27/25 Metrix Glucose Test Strip) blood-glucose meter (True Metrix 01/27/25 01/27/25 Glucose Meter) bupropion HCl 150 mg 24 hr tablet, 150 mg PO DAILY 01/27/25 extended release calcium 500 mg (as 1 tab PO BID 01/27/25 carbonate)-vitamin D3 10 mcg (400 unit) tablet cholecalciferol (vitamin D3) 50 50 mcg PO DAILY 01/27/25 mcg (2,000 unit) tablet flash glucose sensor (FreeStyle 01/27/25 01/27/25 Julisa 2 Sensor kit) lancets 33 gauge (TRUEplus Lancets) 01/27/25 01/27/25 lancing device (TRUEdraw Lancing 01/27/25 01/27/25 Device) pen needle, diabetic 32 gauge x 01/27/25 01/27/25 (Sure Comfort Pen Needle) tiotropium bromide 2.5 2 puff inhalation DAILY 01/0201/27/25 mcg/actuation mist for inhalation (Spiriva Respimat) Previous Rx's ?Medication ?Instructions ?Recorded albuterol sulfate 90 mcg/actuation 2 inh inhalation Q4 H PRN shortness 06/25/23 aerosol inhaler of breath or wheezing #8.5 g mark albuterol sulfate 2.5 mg/3 mL 2.5 mg (3 mL) inhalation Q6H PRN 09/16/23 (0.083 %) solution for nebulization shortness of breat h or wheezing #90 mL gabapentin 600 mg tablet 600 mg PO BID #0 tabs insulin aspart U-100 100 unit/mL 8 unit (0.08 mL) subc ut TIDWM #0 mL 01/29/25 (3 mL) subcutaneous pen (Novolog FlexPen U-100 Insulin aspart) losartan 25 mg tablet 25 mg PO DAILY #30 tabs 01/02 02/25 nitrofurantoin 100 mg PO BID 5 days #10 cap s 01/29/25 monohydrate/macrocrystals 100 mg capsule (Macrobid) Allergies Allergy/AdvReac Type Severity Reaction Status Date / Time ciprofloxacin (From Cipro) AdvReac Intermediate Vomiting Verified 02/12/25 11:30 metronidazole (From Flagyl) AdvReac Intermediate Vomiting Verified 02/12/25 11:30 Penicillins AdvReac Intermediate Vomiting Verified 02/12/25 11:30 sulfamethoxazole (From AdvReac Intermediate Vomiting Verified 02/12/25 11:30 Bactrim) trimethoprim (From Bactrim) AdvReac Intermediate Vomiting Verified 02/12/25 11:30 Review of Systems ROS Status of ROS 10 or more systems reviewed and unremark able except as noted in history and below [facility] Medical History (Updated 02/12/25 @ 13:27 by Anushka Carbajal MD) Paroxysmal atrial fibrillation ?I48.0 - Paroxysmal atrial fibrillation (ICD-10) Diabetes mellitus with hyperglycemia, with long-term current use of insulin ?E11.65 - Type 2 diabetes mellitus with hyperglycemia (ICD-10) ?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 (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-10) Hypertension ?I10 - Essential (primary) hypertension (ICD-10) Chronic obstructive pulmonary disease ?J44.9 - Chronic obstructive pulmonary disease, unspecified (ICD-10) COVID ?U07.1 - COVID-19 (ICD-10) Acute and chronic respiratory failure (hlzbf-fy-nyodjzt) ?J96.20 - Acute and chronic respiratory failure, unspecified whether with hypoxia or hypercapnia (ICD-10) Acute exacerbation of chronic obstructive pulmonary disease ?J44.1 - Chronic obstructive pulmonary disease with (acute) exacerbation (ICD-10) Dehydration ?E86.0 - Dehydration (ICD-10) Acute infective exacerbation of chronic obstructive airway disease ?J44.1 - Chronic obstructive pulmonary disease with (acute) exacerbation (ICD-10) Syncope ?R55 - Syncope and collapse (ICD-10) Head injury ?S09.90XA - Unspecified injury of head, initial encounter (ICD-10) Fall ?W19.XXXA - Unspecified fall, initial encounter (ICD-10) Closed head injury ?S09.90XA - Unspecified injury of head, initial encounter (ICD-10) Vertigo ?R42 - Dizziness and giddiness (ICD-10) Finger pain, right ?M79.644 - Pain in right finger(s) (ICD-10) Community acquired pneumonia ?J18.9 - Pneumonia, unspecified organism (ICD-10) COPD exacerbation ?J44.1 - Chronic obstructive pulmonary disease with (acute) exacerbation (ICD-10) COVID-19 ?U07.1 - COVID-19 (ICD-10) Hyperglycemia, drug-induced ?R73.9 - Hyperglycemia, unspecified (ICD-10) ?T50.905A - Adverse effect of unspecified drugs, medicaments and biological substances, initial encounter (ICD-10) Abscess ?L02.91 - Cutaneous abscess, unspecified (ICD-10) Acute hyperglycemia ?R73.9 - Hyperglycemia, unspecified (ICD-10) A-fib ?I48.91 - Unspecified atrial fibrillation (ICD-10) Diabetes ?E11.9 - Type 2 diabetes mellitus without complications (ICD-10) Acute shoulder pain ?M25.519 - Pain in unspecified shoulder (ICD-10) Hyperlipidemia ?E78.5 - Hyperlipidemia, unspecified (ICD-10) Depression ?F32.A - Depression, unspecified (ICD-10) Surgical History History of appendectomy ?Z90.49 - Acquired absence of other specified parts of digestive tract (ICD- 10) Hx of cholecystectomy ?Z90.49 - Acquired absence of other specified parts of digestive tract (ICD- 10) H/O: hysterectomy ?Z90.710 - Acquired absence of both cervix and uterus (ICD-10) Family History Mother Family history of diabetes mellitus Grandfather Family history of diabetes mellitus Father Family history of stroke Social History (Updated 01/27/25 @ 04:37 by Chika Anedrson RN) Within the past year, how often did you have a drink containing alcohol: never Score interpretation: A score less than 3 is consistent with normal alcohol consumption. Smoking status: Current every day smoker Non-prescribed substance use: denies use Previous occupational history: Unemployed Known occupational exposures/hazards: No Highest level of school completed/degree received: high school graduate In a typical week, how many times do you talk on the telephone with family, friends, or neighbors: 3 or more times per week Little interest or pleasure in doing things: nearly every day Feeling down, depressed, or hopeless: nearly every day Gender Identity: female Exam Narrative Exam Narrative: Nurses notes and vital signs reviewed and patient is not hypoxic. General: The patient appears depressed and emotional Skin: Warm, dry, no pallor noted. No rash. Head: Normocephalic, atraumatic. Neck: Supple, non-tender. Eye: Pupils are equal, round and EOMI. No scleral icterus. Cardiovascular: Regular Rate and Rhythm without murmur, gallop or rub. Respiratory: No accessory muscle use or respiratory distress. Lungs are clear to auscultation, no wheezing, rales or rhonchi Chest Wall: no tenderness GI: Abdomen is soft, non-distended. Normal bowel sounds. No masses appreciated. No tenderness to palpation. No rebound, guarding, or rigidity noted. Neurological: A&O x4. No cranial nerve dysfunction observed. No truncal ataxia. Moves all extremities. Sensation intact. Psychiatric: Depressed emotional and crying Constitutional Vital Signs, click to edit/add: Last Vital Signs Temp 98.3 F 02/12/25 11:31 Pulse 112 H 02/12/25 11:31 Resp 18 02/12/25 11:31 BP 116/84 02/12/25 11:31 Pulse Ox 97 02/12/25 11:31 O2 Del Method Room Air 02/12/25 11:31 Course Vital Signs Vital signs: Vital Signs Temperature 98.3 F 02/12/25 11:31 Pulse Rate 112 H 02/12/25 11:31 Respiratory Rate 18 02/12/25 11:31 Blood Pressure 116/84 02/12/25 11:31 Pulse Oximetry 97 02/12/25 11:31 Oxygen Delivery Method Room Air 02/12/25 11:31 Temperature 98.3 F 02/12/25 11:31 Pulse Rate 112 H 02/12/25 11:31 Respiratory Rate 18 02/12/25 11:31 Blood Pressure 116/84 02/12/25 11:31 Pulse Oximetry 97 02/12/25 11:31 Oxygen Delivery Method Room Air 02/12/25 11:31 MDM - Psych MDM Narrative Medical decision making narrative: The patient EKG in the ER showing sinus rhythm with a heart rate of [address] elevation or depression CBC and chemistry showed no acute pathology The patient is medically cleared to be admitted for inpatient psychiatry The patient was accepted by in [facility] at [facility] for acute depression management inpatient Lab Data Labs: Lab Results 02/12/25 02/12/25 Range/Units 11:34 11:46 WBC 9.8 (4.0-11.0) 10^3/uL RBC 5.65 H (4.20-5.40) 10^6/uL Hgb 17.8 H (12.0-16.0) g/dL Hct 52.1 H (36.0-48.0) % MCV 92.2 (81.0-99.0) fL MCH 31.5 (26.7-34.0) pg MCHC 34.2 (29.9-35.2) g/dL RDW 14.3 (11.0-15.0) % Plt Count 348 (150-450) 10^3/uL MPV 10.2 (9.5-13.5) fL Neut % (Auto) 55.7 (43.0-75.0) % Lymph % (Auto) 35.0 (20.5-60.0) % Vernon % (Auto) 6.5 (1.7-12.0) % Eos % (Auto) 1.8 (0.9-7.0) % Baso % (Auto) 0.7 (0.2-2.0) % Neut # (Auto) 5.5 (1.4-6.5) 10^3/uL Lymph # (Auto) 3.4 (1.2-3.8) 10^3/uL Vernon # (Auto) 0.6 (0.3-0.8) 10^3/uL Eos # (Auto) 0.2 (0.0-0.7) 10^3/uL Baso # (Auto) 0.1 (0.0-0.1) 10^3/uL Abs Immat Gran (auto) 0.03 (0.00-0.03) 10^3/uL Imm/Tot Granulo (auto) 0.3 (0.0-0.5) % Sodium 139 (136-145) mmol/L Potassium 4.4 (3.5-5.1) mmol/L Chloride 101 (98-107) mmol/L Carbon Dioxide 27.1 (21.0-32.0) mmol/L Anion Gap 15.3 BUN 13.0 (7.0-18.0) mg/dL Creatinine 0.80 (0.55-1.02) mg/dL Est GFR ( Amer) >60 (>=60 mL/min/1.73m^2) Est GFR (Non-Af Amer) >60 (>=60 mL/min/1.73m^2) BUN/Creatinine Ratio 16.2 Glucose 296 H (74-106) mg/dL Calcium 9.6 (8.5-10.1) mg/dL Total Bilirubin 0.7 (0.2-1.0) mg/dL AST 13 L (15-37) U/L ALT 15 (14-59) U/L Alkaline Phosphatase 110 (46-116) U/L Total Protein 8.1 (6.4-8.2) g/dL Albumin 3.6 (3.4-5.0) g/dL Globulin 4.5 g/dL Albumin/Globulin Ratio 0.8 Urine Opiates Screen Negative (NEGATIVE) Ur Buprenorphine Scrn Negative (NEGATIVE) Ur Oxycodone Screen Negative (NEGATIVE) Urine Methadone Screen Negative (NEGATIVE) Ur Barbiturates Screen Negative (NEGATIVE) U Tricyclic Antidepress Negative (NEGATIVE) Ur Phencyclidine Scrn Negative (NEGATIVE) Ur Amphetamines Screen Negative (NEGATIVE) U Methamphetamines Scrn Negative (NEGATIVE) U Benzodiazepines Scrn Negative (NEGATIVE) Urine Cocaine Screen Negative (NEGATIVE) U Cannabinoids Screen Negative (NEGATIVE) Ethanol Quant <3 mg/dL Discharge Plan Discharge Chief Complaint: Psychiatric Symptoms Clinical Impression: Suicidal ideations, Depression Patient Disposition: [facility] Time of Disposition Decision: 14:29 Discharge location: [facility] [address]
[2025-02-12 19:05] VITALS: BP 137/79; PULSE 66; TEMP 36.8; O2SAT 96
== END 2025-02-12 20:31 ==
PROVIDERS: Emergency Provider Emergency Medicine; PCP Nurse Practitioner
DX: F32.A Depression, unspecified (principal); R45.851 Suicidal ideations; F17.200 Nicotine dependence, unspecified, uncomplicated
CPT/HCPCS: 36415; 80053; 80307; 80320; 85025; 93005; 99285